=== PATIENT | male | born 1950 | race Caucasian/White ===

== ENCOUNTER 2016-03-16 15:44 | Emergency (ER) | payer OTHER ==
[~2016-03-16] VITALS: Ht 177.8 cm; Wt 118.1 kg
[~2016-03-16 15:44] MED LIST: ACDPT; ACET-2469 PO; ALLP100T PO; B12 PO; BENA40TA59; BNZ20T PO; BUPR300T PO; CHOL500044 PO; CIPR500T4 PO; CIPR500T78 PO; CLON0.5T3 PO; CYCL10TA9; CYCL10TA9 PO; DESV50TA PO; DICL75TA2 PO; DOXA4TAB2 PO; ENXP80I.8 SC; ESCI20TA2; GARL10002 PO; GARL2000 PO; GARL400T13; HCT25T; HYDR-3876 PO; HYDR-707 PO; MAGN250T13 PO; METO-333 PO; METR500T PO; METR500T21 PO; MMT17NA NSEACH; MULT-974 PO; NITR-65 PO; NITR-68 PO; OMEP20CA12 PO; ONDA8TAB13 PO; OXYB5TAB9 PO; OXYC-191 PO; OXYC-465 PO; OXYC1TAB95 PO; PARO10OR3 PO; PHEN-639 PO; RANI75TA30 PO; RNT150T; TAMS0.4C2 PO; TAMS0.4C98 PO; TIZA2TAB3 PO; TRAZ150T42; TRAZ150T42 PO; TRAZ150T72 PO; VIT D3 PO; WRF5T PO; [UNRECOGNIZED DRUG - CODE] TP
--- OUTSIDE RECORDS SUMMARY | 2016-03-16 15:51 | XMS REPORT | Continuity of Care Document ---
Author Author [facility] Organization [facility] Address Unknown Phone Unavailable Care Team Providers Care Concrete Sculptor Name Role Phone Crystal Burton PCP [phone] Source Comments Some departments are not documenting in the electronic medical record. If you do not see the information that you expected, contact Release of Information in the Health Information Management department at [phone] for further assistance in locating additional records.[facility] Active Allergies and Adverse Reactions Not on File Current Medications Prescription Sig. Disp. Refills Start End Date Status Date diclofenac sodium DR Take 1 Tab by mouth twice 60 Tab 1 04/04/19 Active (VOLTAREN) 75 mg tablet daily. Indications: 16 OSTEOARTHRITIS Active Problems Not on file Social History Tobacco Use Types Packs/Day Years Used Date Never Assessed Plan of Care Health Maintenance Due Date Last Done Comments Physical (Comprehensive) 1957 Exam Pertussis Vaccine 1960 Tetanus Vaccine 1966 Colorectal Cancer 12/22/1999 Screening Shingles Vaccine 2009 Prevnar/Pneumovax (#1) 2014 Influenza Vaccine 11/01/2015 Results from Last 3 Months Not on file
--- NOTE | 2016-03-16 17:00 | Diagnostic Imaging Report ---
INDICATION: Right hip pain. No trauma. FINDINGS: Two views with AP and frog-leg view. The hip is internally rotated on AP view. Patient was unable to cooperate to roll hip laterally. No fractures or dislocations are demonstrated. Articulating surfaces are smooth. Joint space is well preserved. IMPRESSION: Negative right hip. Dictated by: Dictated on workstation # [id number]
--- NOTE | 2016-03-16 17:01 | Diagnostic Imaging Report ---
INDICATION: Right hip pain. EXAMINATION: Pelvis. FINDINGS: AP pelvis shows bony ring intact. There is sclerotic change along the SI joints, bilaterally. Pubic symphysis is in good alignment. The hips are in normal articulation with mild degenerative change. No fracture is demonstrated. There are surgical clips from previous ventral hernia repair. IMPRESSION: No acute change is noted of the pelvis. Degenerative changes of the SI joints, bilaterally. Dictated by: Dictated on workstation # [id number]
--- NOTE | 2016-03-16 17:47 | ED Hip Pain/Injury ---
General Chief Complaint: Hip/Pelvic Problems Stated Complaint: R HIP PAIN Nursing Triage Note: PT C/O R HIP PAIN. HE DENIES ANY INJURY. HE DOES REPORT CHRONIC BACK PAIN. Source: patient Exam Limitations: no limitations History of Present Illness Time seen by provider: 17:42 Initial Comments The patient is a 65-year-old white male who presents with complaints of right hip and pelvic pain. He has been doing workouts with light weights. He had recently increased the weight and noted after returning home that he had pain in his right hip area. He has had chronic low back pain but states that that has typically been more central. He did note that this has some element of pain in the buttocks and the upper posterior thigh. There is been no loss of ability to ambulate. It also done some rotational exercises with the thorax and the symptoms increased after this. Timing/Duration: week Severity: mild, moderate Location: hip (R) Method of Injury: unknown Associated Symptoms: denies symptoms Allergies and Home Medications Allergies Coded Allergies: Penicillins (Unverified Allergy, Mild, 07/04/09) ampicillin (Unverified Allergy, Mild, RASH, 04/22/09) sulfacetamide (Verified Allergy, Mild, "MADE ME FEEL BAD", 03/19/15) egg (Unverified Allergy, Unknown, 07/19/15) FROM UNCODED ALLERGIES Home Medications Allopurinol 100 Mg Tab 100 MG PO DAILY (Reported) Cholecalciferol (Vitamin D3) 5,000 Unit Tablet 5,000 UNIT PO DAILY (Reported) Clonazepam 0.5 Mg Tablet 0.5 MG PO HS (Reported) NEEDED FOR ANXIETY Diclofenac Sodium 75 Mg Tablet.dr 75 MG PO BID (Reported) Garlic 2,000 Mg Capsule 2,000 MG PO DAILY (Reported) Mometasone Furoate 17 Gm [place] #1 1 SPRAY NSEACH HS (Reported) Multivitamin 1 Each Tablet 2 EACH PO BID (Reported) Omeprazole 20 Mg Capsule.dr 20 MG PO BID (Reported) Oxycodone Hcl/Acetaminophen 1 Each Tablet 1 EACH PO Q6HR PRN PRN PRN PAIN ( Reported) Tamsulosin HCl 0.4 Mg Cap.er.24h 0.4 MG PO DAILY (Reported) Trazodone HCl 150 Mg Tablet 150 MG PO HS (Reported) Trazodone Hcl 150 Mg Tablet 150 MG PO HS (Reported) Constitutional: see HPI EENTM: no symptoms reported Respiratory: no symptoms reported Cardiovascular: no symptoms reported Gastrointestinal: no symptoms reported Genitourinary: no symptoms reported Musculoskeletal: see HPI back pain Skin: no symptoms reported Psychiatric/Neurological: No Symptoms Reported Past Sqcmbxc-Yacazy-Ymtmqe Hx Patient Social History Alcohol Use: Denies Use Recreational Drug Use: No Smoking Status: Never a Smoker Recent Foreign Travel: No Contact w/Someone Who Travel: No Recent Infectious Disease Expo: No Physical Abuse Screen: No Sexual Abuse: No Immunizations Up To Date Tetanus Booster (TDap): Less than 5yrs Date of Pneumonia Vaccine: Mar 19, 2013 Surgeries HX Surgeries: Yes (hernia repair, SINUS, FOOT, BARIATRIC, KNEE SCOPE, cysto) Respiratory Hx Respiratory Disorders: Yes (uses cpap) Respiratory Disorders: Sleep Apnea Cardiovascular Hx Cardiac Disorders: Yes (2011-FROM FALL, TOOK COUMADIN FOR 6MONTHS) Neurological Hx Neurological Disorders: No Reproductive System Hx Reproductive Disorders: No Sexually Transmitted Disease: No HIV/AIDS: No Genitourinary Hx Genitourinary Disorders: Yes (LITHOTRIPSY IN APRIL ) Genitourinary Disorders: Kidney Stones Gastrointestinal Hx Gastrointestinal Disorders: Yes (HAS HAD GASTRIC SLEEVE) Gastrointestinal Disorders: Gastroesophageal Reflux, Chronic Constipation, Diverticulosis Musculoskeletal Hx Musculoskeletal Disorders: Yes (ARTHRITIS IN KNEES AND BACK) Musculoskeletal Disorders: Arthritis, Chronic Back Pain Endocrine Hx Endocrine Disorders: No HEENT HX ENT Disorders: Yes (GLASSES) Loss of Vision: Bilateral Hearing Impairment: Denies Cancer Hx Cancer: No Psychosocial Hx Psychiatric Problems: Yes Behavioral Health Disorders: Anxiety, Depression Integumentary HX Skin/Integumentary Disorder: Yes (RED PATCHES ON FACE) Blood Transfusions Hx Blood Disorders: No Adverse Reaction to a Blood Tr: No Family Medical History Significant Family History: No Pertinent Family Hx Family Medial History: Arthritis 19 MOTHER Cardiovascular disease 19 MOTHER Colon cancer 19 FATHER 19 MOTHER G8 SISTER Dementia 19 MOTHER Hypertension 19 MOTHER G8 BROTHER Respiratory disorder 19 FATHER (lung ca) Thyroid disease 19 MOTHER Physical Exam Vital Signs Vital Sign - Last 12Hours 03/16/16 16:23 Temp 97.9 Pulse 68 Resp 18 B/P 130/85 Pulse Ox 98 O2 Delivery Room Air Capillary Refill : Less Than 3 Seconds General Appearance: No Apparent Distress WD/WN HEENT: Normal ENT Inspection Neck: Normal Inspection Cardiovascular: Regular Rate, Rhythm No Edema No Gallop No JVD No Murmur Normal Peripheral Pulses Respiratory: Chest Non Tender Lungs Clear Normal Breath Sounds No Accessory Muscle Use No Respiratory Distress Accessory Muscle Use Gastrointestinal: Normal Bowel Sounds No Organomegaly No Pulsatile Mass Non Tender Soft Back: CVA Tenderness (R) Extremity: Normal Capillary Refill Normal Inspection Normal Range of Motion Non Tender No Calf Tenderness No Pedal Edema Neurologic/Psychiatric: Alert Oriented x3 No Motor/Sensory Deficits Normal Mood/Affect emerging technologies director II-XII Norm as Tested Abnormal Cerebellar Tests Skin: Normal Color Warm/Dry Cool Cyanosis Lymphatic: No Adenopathy Comments There is pain to deep palpation along the sciatic notch on the right. This produced a bit of radiation to the upper posterior thigh. Progress/Results/Core Measures Results/Orders My Orders Orders-FAUSTINO BRYAN MD Pelvis (03/16/16 16:19) Hip, Right, 2 Views (03/16/16 16:19) Vital Signs/I&O Vital Sign - Last 12Hours 03/16/16 16:23 Temp 97.9 Pulse 68 Resp 18 B/P 130/85 Pulse Ox 98 O2 Delivery Room Air Blood Pressure Mean: 100 Departure Impression Impression: Primary Impression: PAIN Additional Impression: low back pain Disposition: 01 HOME, SELF-CARE Condition: Stable/Unchanged Departure-Patient Inst. Decision time for Depature: 17:49 Referrals: CHRIS STEVENSON MD (PCP) Primary Care Physician Patient Instructions: Low Back Pain in Adults Add. Discharge Instructions: All discharge instructions reviewed with patient and/or family. Voiced understanding Use heat to the area. Continue Flexeril Add naproxen It may take several days to see results, avoid stressful exercise during this period of time. Scripts Naproxen Sodium (Anaprox Ds)550 Mg [id number] Mg PO BID #60 TAB Prov:FAUSTINO BRYAN MD 03/16/16 Work/School Note: Local Medical Staff Listing FAUSTINO BRYAN MD Mar 16, 2016 17:47
[2016-03-16] MEDS ORDERED: NAPR550T PO (17:51)
[2016-03-16 18:02] VITALS: BP 130/85
== END 2016-03-16 18:02 | disposition home or self-care (01) ==
LOC: EDUNIT# 15:44 → ER 15:46
DX: M54.5 Low back pain (principal); M25.551 Pain in right hip
CPT/HCPCS: 72170; 73502

== ENCOUNTER → 2016-03-28 | Outpatient (CLI) | payer MEDICARE ==
[~2016-03-28] MED LIST changes: +NAPR550T PO
--- OUTSIDE RECORDS SUMMARY | 2016-03-28 09:59 | XMS REPORT | Continuity of Care Document ---
Author Author [facility] Organization [facility] Address Unknown Phone Unavailable Care Team Providers Care Patient Safety Manager Name Role Phone Crystal Burton PCP [phone] Source Comments Some departments are not documenting in the electronic medical record. If you do not see the information that you expected, contact Release of Information in the Health Information Management department at [phone] for further assistance in locating additional records.[facility] Active Allergies and Adverse Reactions Not on [...]
== END ==
LOC: RAD 09:55
PROVIDERS: ATTEND Nurse Practitioner Family
DX: M54.41 Lumbago with sciatica, right side (principal)

== ENCOUNTER → 2016-03-31 | Outpatient (CLI) | payer MEDICARE, OTHER ==
--- OUTSIDE RECORDS SUMMARY | 2016-03-31 08:07 | XMS REPORT | Continuity of Care Document ---
Author Author [facility] Organization [facility] Address Unknown Phone Unavailable Care Team Providers Care Associate Manager Name Role Phone Crystal Burton PCP [phone] Source Comments Some departments are not documenting in the electronic medical record. If you do not see the information that you expected, contact Release of Information in the Health Information Management department at [phone] for further assistance in locating additional records.[facility] Active Allergies and Adverse Reactions Not [...]
--- NOTE | 2016-03-31 10:53 | Diagnostic Imaging Report ---
PROCEDURE: MRI lumbar spine. TECHNIQUE: Multiplanar, multisequence MRI of the lumbar spine was performed without contrast. INDICATION: Back pain. FINDINGS: The alignment of the posterior spinal line is satisfactory. There is an old compression fracture with 5 percent vertebral body height loss involving L1 vertebral body. There is no acute or subacute compression fracture seen. There are multilevel bone marrow signal abnormalities within vertebral bodies suggestive of hemangiomas most notable at T11 vertebral body with approximately 2.7 cm maximum dimension. No suspicious or aggressive-appearing lesion seen however. There are mild reactive Modic 1-type changes seen along the endplates around L3-L4 disc suggestive of degenerative changes. The cauda equina and conus medullaris appear grossly unremarkable. There is mild T2 hyperintensity within the right paraspinal muscles around the thoracolumbar junction region. This might relate to injury or nonspecific muscle edema/myositis. The discs demonstrate desiccation at all levels. No significant disc height loss. T11-T12: Minimal disc herniation, no spinal canal or foraminal stenosis. T12-L1: Minimal disc herniation. There is no spinal canal or foraminal stenosis. L1-L2: There is a minimal disc bulge and mild facet and ligamentous hypertrophy. No central canal, lateral recess, or foraminal stenosis. L2-L3: There is a mild diffuse disc bulge and mild/ moderate facet arthropathy. This is associated with mild right lateral recess stenosis. The left lateral recess is patent. The central canal is patent. The neural foramina are patent. L3-L4: There is a mild diffuse disc bulge and moderate facet arthropathy. No central canal stenosis. There is mild/ moderate narrowing of the right lateral recess. The left lateral recess is patent. At this level there is in an epidural lesion with iso T1 and T2 hyperintense lesion with well-defined margins in the epidural space on the right side posterior lateral and extending into the right neural foramen. It is abutting the herniated disc superior aspect and despite the difference in the signal intensity, is most likely an extruded cranially migrated disc. It measures 1.6 cm in width and 1.3 cm craniocaudally and is 0.6 cm anterior posteriorly. Although it does not compress the right lateral recess, its extension into the foramen along with the facet arthropathy results in moderate/ severe right foraminal stenosis. The left foramen demonstrates mild stenosis. L4-L5: There is a mild disc bulge and bilateral moderate/ severe facet arthropathy with minimal fluid within the facet joints on both sides. There is no central canal stenosis. There is mild/ moderate right lateral recess stenosis. The left lateral recess is patent. There is minimal synovial cyst projecting anteriorly from the superior aspect of the left facet joint with a cyst maximum measurement 3 mm. It is abutting the exiting nerve root in the left foramen without significant compression or foraminal narrowing otherwise. The right foramen demonstrates mild stenosis. L5-S1: There is a diffuse disc bulge and bilateral mild/moderate facet arthropathy. No central canal stenosis. No significant stenosis of the lateral recess. The foramina demonstrate mild/ moderate narrowing worse on the left side. IMPRESSION: 1. There is multilevel lateral recess and foraminal stenosis as described, worst along the right L3-L4 neural foramen. 2. There is mild T2 hyperintense signal in the right paraspinal muscles around the thoracolumbar junction could relate to mild muscle sprain or nonspecific mild muscle edema or myositis. Correlate clinically. Dictated by: Dictated on workstation # [id number]
== END ==
LOC: RAD 08:03
PROVIDERS: ATTEND Nurse Practitioner Family
DX: M54.41 Lumbago with sciatica, right side (principal)
CPT/HCPCS: 72148

== ENCOUNTER 2016-06-19 18:36 | Emergency (ER) | payer OTHER, MEDICARE ==
[~2016-06-19] VITALS: Ht 175.3 cm; Wt 118.1 kg
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
[2016-06-19 19:30] VITALS: BP 169/102
== END 2016-06-19 19:30 | disposition home or self-care (01) ==
LOC: EDUNIT# 18:36 → ER 18:38
DX: S13.4XXA Sprain of ligaments of cervical spine, initial encounter (principal); V43.52XA Car driver injured in collision with other type car in traffic accident, initial encounter; Y92.414 Local residential or business street as the place of occurrence of the external cause; Y99.8 Other external cause status
CPT/HCPCS: 70450; 72125; 99282

== ENCOUNTER 2016-10-10 02:08 | Emergency (ER) | payer MEDICARE, OTHER ==
[~2016-10-10] VITALS: Ht 177.8 cm; Wt 133.8 kg
--- OUTSIDE RECORDS SUMMARY | 2016-10-10 02:21 | XMS REPORT | Clinical Summary ---
Author Author [facility] Organization [facility] Address Unknown Phone Unavailable Care Team Providers Care Cooker Operator Name Role Phone PCP Unavailable Source Comments Some departments are not documenting in the electronic medical record. If you do not see the information that you expected, contact Release of Information in the Health Information Management department at [phone] for further assistance in locating additional records.[facility] Allergies Not on File Current Medications Prescription Sig. Disp. Refills Start End Date Status Date diclofenac sodium DR Take 1 Tab by mouth twice 60 Tab 1 04/04/19 Active (VOLTAREN) 75 mg daily. Indications: 16 tabletIndications: OSTEOARTHRITIS OSTEOARTHRITIS Active Problems Not on file Social History Tobacco Use Types Packs/Day Years Used Date Never Assessed Sex Assigned at Date Recorded Not on file Last Filed Vital Signs Not on file Plan of Treatment Health Maintenance Due Date Last Done Comments HEPATITIS C SCREENING 1950 PHYSICAL (COMPREHENSIVE) 1956 EXAM PERTUSSIS VACCINE 1960 TETANUS VACCINE 1966 COLORECTAL CANCER 12/22/1999 SCREENING SHINGLES VACCINE 2009 PREVNAR/PNEUMOVAX (#1) 2014 INFLUENZA VACCINE 10/31/2016 Results Not on filefrom Last 3 Months
--- NOTE | 2016-10-10 02:55 | ED Upper Extremity ---
General Chief Complaint: Trauma-Non Activation Stated Complaint: FALL Nursing Triage Note: SEE TRAUMA ASSESSMENT Nursing Sepsis Screen: No Definite Risk Source: patient, EMS History of Present Illness Time seen by provider: 02:09 Initial Comments PT ARRIVES VIA EMS FROM HOME PT STATES HE GOT UP TO GO TO BATHROOM AND WAS SITTING ON TOILET AND FELL ASLEEP , AND WHEN HE WOKE UP BOTH OF HIS LEGS HAD FALLEN ASLEEP SO HE TRIED TO STAND UP TO GET THEM TO WAKE UP AND HE LOST HIS BALANCE AND FELL, WITH RIGHT ARM OUTSTRETCHED, AND WAS NOT ABLE TO GET UP PT STATES HIS LEGS WILL DO THIS IF HE SITS ON TOILET TOO LONG, AND IS NOT ANY DIFFERENT THAN PREVIOUS OCCASIONS, OCCURRED AT 0120 HAD IMMEDIATE PAIN IN RIGHT SHOULDER PT WAS LAYING PRONE ON THE BATHROOM FLOOR, AND NOTED TO HAVE DEFORMITY TO RIGHT SHOULDER. WHEN EMS WAS ASSISTING HIM TO STAND, HIS SHOULDER POPPED BACK IN PLACE AND HAD IMMEDIATE RELIEF OF PAIN, BUT STATES SHOULDER IS STILL A LITTLE SORE, SO CAME TO ER PT DENIES HITTING HIS HEAD OR HAVING LOSS OF CONSCIOUSNESS DENIES ANY OTHER INJURIES PT HAS CHRONIC BACK PAIN AND NO INCREASE IN CHRONIC PAIN NO PARESTHESIAS OR MOTOR DEFICITS NOW--LEGS ARE NO LONGER "ASLEEP" Location [facility] Allergies and Home Medications Allergies Coded Allergies: Penicillins (Unverified Allergy, Mild, 07/04/09) ampicillin (Unverified Allergy, Mild, RASH, 04/22/09) sulfacetamide (Verified Allergy, Mild, "MADE ME FEEL BAD", 03/19/15) egg (Unverified Allergy, Unknown, 07/19/15) FROM UNCODED ALLERGIES Home Medications Allopurinol 100 Mg Tab, 100 MG PO DAILY, (Reported) Cholecalciferol (Vitamin D3) 5,000 Unit Tablet, 5,000 UNIT PO DAILY, (Reported) Clonazepam 0.5 Mg Tablet, 0.5 MG PO HS, (Reported) NEEDED FOR ANXIETY Diclofenac Sodium 75 Mg Tablet.dr, 75 MG PO BID, (Reported) Garlic 2,000 Mg Capsule, 2,000 MG PO DAILY, (Reported) Mometasone Furoate 17 Gm [place], 1 SPRAY NSEACH HS, #1 (Reported) Multivitamin 1 Each Tablet, 2 EACH PO BID, (Reported) Naproxen Sodium 550 Mg Tablet, 550 MG PO BID, #60 Prescribed by: FAUSTINO BRYAN on 03/16/16 1751 Omeprazole 20 Mg Capsule.dr, 20 MG PO BID, (Reported) Oxycodone Hcl/Acetaminophen 1 Each Tablet, 1 EACH PO Q6HR PRN PRN for PAIN, ( Reported) Tamsulosin HCl 0.4 Mg Cap.er.24h, 0.4 MG PO DAILY, (Reported) Trazodone HCl 150 Mg Tablet, 150 MG PO HS, (Reported) Trazodone Hcl 150 Mg Tablet, 150 MG PO HS, (Reported) Constitutional: no symptoms reported EENTM: no symptoms reported Respiratory: no symptoms reported Cardiovascular: no symptoms reported Musculoskeletal: see HPI Skin: no symptoms reported Psychiatric/Neurological: No Symptoms Reported, See HPI Past Diqyqth-Bhiqvc-Mdiism Hx Patient Social History Alcohol Use: Occasionally Uses Recreational Drug Use: No Smoking Status: Never a Smoker Recent Foreign Travel: No Contact w/Someone Who Travel: No Recent Infectious Disease Expo: No Recent Hopitalizations: No Immunizations Up To Date Tetanus Booster (TDap): Less than 5yrs Date of Pneumonia Vaccine: Mar 19, 2013 Seasonal Allergies Seasonal Allergies: Yes Surgeries HX Surgeries: Yes (UMBILICAL HERNIA REPAIR;HIATAL HERNIA REPAIR;SINUS; HAMMERTOE SURGERY; BARIATRIC SURGERY; EGD/COLONOSCOPY; LEFT KNEE SCOPE; RIGHT TOTAL KNEE REPLACEMENT; CYSTO; LITHOTRIPSY; UVULA RESECTION) Surgeries: Abdominal, Adenoidectomy, Bladder Surgery, Gallbladder, Orthopedic, Renal, Tonsillectomy Respiratory Hx Respiratory Disorders: Yes (USES CPAP) Respiratory Disorders: Sleep Apnea Cardiovascular Hx Cardiac Disorders: Yes (2011-FROM FALL, TOOK COUMADIN FOR 6MONTHS) Cardiac Disorders: Deep Vein Thrombosis, High Cholesterol, Hypertension Neurological Hx Neurological Disorders: Yes (TREMORS) Reproductive System Hx Reproductive Disorders: No Sexually Transmitted Disease: No HIV/AIDS: No Genitourinary Hx Genitourinary Disorders: Yes (LITHOTRIPSY ) Genitourinary Disorders: Benign Prostatic Hyperpl, Bladder Infection, Kidney Stones Gastrointestinal Hx Gastrointestinal Disorders: Yes (HAS HAD GASTRIC SLEEVE) Gastrointestinal Disorders: Gastroesophageal Reflux, Chronic Constipation, Diverticulosis, Polyps, Hiatal Hernia, Irritable Bowel Musculoskeletal Hx Musculoskeletal Disorders: Yes (ARTHRITIS IN KNEES AND BACK) Musculoskeletal Disorders: Arthritis, Chronic Back Pain, Gout Endocrine Hx Endocrine Disorders: Yes (MORBID OBESITY) HEENT HX ENT Disorders: Yes (GLASSES) Loss of Vision: Bilateral Hearing Impairment: Denies Cancer Hx Cancer: No Psychosocial Hx Psychiatric Problems: Yes Behavioral Health Disorders: Sleep Difficulties, Anxiety, Depression Integumentary HX Skin/Integumentary Disorder: Yes (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) Blood Transfusions Hx Blood Disorders: No Adverse Reaction to a Blood Tr: No Family Medical History Significant Family History: No Pertinent Family Hx Family Medial History: Arthritis 19 MOTHER Cardiovascular disease 19 MOTHER Colon cancer 19 FATHER 19 MOTHER G8 SISTER Dementia 19 MOTHER Hypertension 19 MOTHER G8 BROTHER Respiratory disorder 19 FATHER (lung ca) Thyroid disease 19 MOTHER Physical Exam Vital Signs Vital Sign - Last 12Hours 10/10/16 02:08 Temp 97.8 Pulse 49 Resp 18 B/P (MAP) 121/74 Pulse Ox 96 O2 Delivery Room Air Capillary Refill : Less Than 3 Seconds General Appearance: no apparent distress, obese Neck: normal inspection Cardiovascular: regular rate, rhythm Respiratory: chest non-tender, normal breath sounds Gastrointestinal: non tender, soft Back: no CVA tenderness, no vertebral tenderness Shoulder: No asymmetry, No bone tenderness, No deformity, No ecchymosis, limited ROM, soft tissue tenderness, No swelling Elbow/Forearm: normal inspection Wrist: Yes normal inspection Hand: normal inspection Neurologic/Tendon: normal sensation, normal motor functions, normal tendon functions Neurologic/Psychiatric: life educator II-XII nml as tested, no motor/sensory deficits, alert, normal mood/affect, oriented x 3 Skin: normal color, warm/dry Splinting and Joint Reduction : Immobilizers: XL Shoulder Progress/Results/Core Measures Results/Orders My Orders Orders - MEI ALFONSO DO Shoulder, Right, 3 Views (10/10/16 02:17) Shoulder Immoblizer (10/10/16 02:47) Vital Signs/I&O Vital Sign - Last 12Hours 10/10/16 02:08 Temp 97.8 Pulse 49 Resp 18 B/P (MAP) 121/74 Pulse Ox 96 O2 Delivery Room Air Blood Pressure Mean: 90 Diagnostic Imaging Comments XRAYS RIGHT SHOULDER--NO FX OR DISLOCATION, PENDING RADIOLOGIST REVIEW Departure Impression Impression: Primary Impression: REPORTED SHOULDER DISLOCATION WITH SPONTANEOUS REDUCTION Disposition: 01 HOME, SELF-CARE Condition: Stable Departure-Patient Inst. Referrals: CHRIS STEVENSON MD (PCP) Primary Care Physician DMITRI GALLO MD Patient Instructions: How to Use a Shoulder Sling, Shoulder Dislocation (DC) Add. Discharge Instructions: WEAR IMMOBILIZER AT ALL TIMES ICE TO AREA AT 20 MINUTE INTERVALS TAKE YOUR HOME PAIN MEDICATIONS PRESCRIBED FOLLOW UP WITH DR. GALLO OR ORTHOPEDIC SURGEON OF CHOICE/ PR IN 3-4 DAYS FOR FURTHER CARE All discharge instructions reviewed with patient and/or family. Voiced understanding. MEI ALFONSO DO Oct 10, 2016 02:55
[2016-10-10 03:11] VITALS: BP 126/72
--- NOTE | 2016-10-10 06:37 | Diagnostic Imaging Report ---
INDICATION: Right shoulder pain Three views of the right shoulder show no fracture, dislocation or other acute abnormalities. IMPRESSION: Negative right shoulder Dictated by: Dictated on workstation # [id number]
== END 2016-10-10 03:11 | disposition home or self-care (01) ==
LOC: EDUNIT# 02:15 → ER 02:17
DX: S43.004A Unspecified dislocation of right shoulder joint, initial encounter (principal); G47.30 Sleep apnea, unspecified; I10 Essential (primary) hypertension; N40.0 Benign prostatic hyperplasia without lower urinary tract symptoms; K21.9 Gastro-esophageal reflux disease without esophagitis; M19.90 Unspecified osteoarthritis, unspecified site; M10.9 Gout, unspecified; K59.09 Other constipation; M54.9 Dorsalgia, unspecified; G89.29 Other chronic pain; E66.01 Morbid (severe) obesity due to excess calories; F41.9 Anxiety disorder, unspecified; E78.00 Pure hypercholesterolemia, unspecified; F32.9 Major depressive disorder, single episode, unspecified; Z68.41 Body mass index [BMI] 40.0-44.9, adult; Z82.49 Family history of ischemic heart disease and other diseases of the circulatory system; Z80.1 Family history of malignant neoplasm of trachea, bronchus and lung; Z87.442 Personal history of urinary calculi; Z86.718 Personal history of other venous thrombosis and embolism; Z96.651 Presence of right artificial knee joint; Z98.84 Bariatric surgery status; W18.30XA Fall on same level, unspecified, initial encounter; Y92.002 Bathroom of unspecified non-institutional (private) residence as the place of occurrence of the external cause
CPT/HCPCS: 73030; 99282

== ENCOUNTER 2016-10-28 10:53 | Emergency (ER) | payer MEDICARE, OTHER ==
[~2016-10-28] VITALS: Ht 177.8 cm; Wt 131.7 kg
[~2016-10-28 10:53] MED LIST changes: +NAPR-1070 PO; -NAPR550T PO
--- OUTSIDE RECORDS SUMMARY | 2016-10-28 11:09 | XMS REPORT | Clinical Summary ---
Author Author [facility] Organization [facility] Address Unknown Phone Unavailable Care Team Providers Care Fiber Design Engineer Name Role Phone PCP Unavailable Source Comments Some departments are not documenting in the electronic medical record. If you do not see the information that you expected, contact Release of Information in the Health Information Management department at [phone] for further assistance in locating additional records.[facility] Allergies Not on File Current Medications Prescription [...]
--- OUTSIDE RECORDS SUMMARY | 2016-10-28 11:14 | XMS REPORT ---
Author Author CHRIS STEVENSON [facility] Address [address] [place] [address] Care Team Providers Care Poultry Farm Laborer Name Role Phone GRAHAMELLIOTT HANNAHANY Unavailable PROBLEMS Type Condition ICD9-CM Code [id number] Code Onset Dates Condition Status SNOMED Code Problem Low back pain M54.5 Active 861438649 Problem History of diverticulitis Z87.19 Active 404773250637696 Problem Cervicalgia M54.2 Active 3307212642014 Problem Erectile dysfunction due to diseases classified elsewhere N52.1 Active 368852004 Problem Primary insomnia F51.01 Active 147330162 Problem Acute right-sided low back pain with right-sided sciatica M54.41 Active 968066275 Problem 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 Active 29501258 Problem Esophageal stricture K22.2 Active 83478437 Problem Chronic prescription opiate use Z79.899 Active 574096909 Problem Nephrolithiasis N20.0 Active 61676731 Problem Benign prostatic hyperplasia, presence of lower urinary tract symptoms unspecified, unspecified morphology N40.0 Active 802239082 Problem Moderate episode of recurrent major depressive disorder F33.1 Active 325483530 Problem Nocturnal hypoxia G47.34 Active 540873168 Problem Obstructive sleep apnea syndrome G47.33 Active 00808709 Problem Psoriasis L40.9 Active 7281081 Problem Allergic rhinitis, unspecified allergic rhinitis type J30.9 Active 38525943 Problem Anxiety F41.9 Active 21074208 Problem Hyperlipidemia, unspecified E78.5 Active 51087514 Problem Urge incontinence N39.41 Active 735010537 Problem Essential hypertension I10 Active 56341296 Problem Chronic gout, unspecified cause, unspecified site M1A.9XX0 Active 72740764 Problem History of weight loss surgery Z98.84 Active 952576220 ALLERGIES Unknown Allergies SOCIAL HISTORY No smoking Hx information available PLAN OF CARE VITAL SIGNS MEDICATIONS Medication Instructions Dosage Frequency Start Date End Date Duration Status Endocet 10-325 MG Orally 4 times a day 1 tablet as needed 6h 14 Dec, 2015 28 days Active RESULTS No Results PROCEDURES No Known procedures IMMUNIZATIONS No Known Immunizations
--- OUTSIDE RECORDS SUMMARY | 2016-10-28 11:16 | XMS REPORT ---
Author Author CHRIS STEVENSON [facility] Address [address] [place] [address] Care Team Providers Care Graphic Manager Name Role Phone CHRIS STEVENSON Unavailable PROBLEMS Type Condition ICD9-CM Code [id number] Code Onset Dates Condition Status SNOMED Code Problem Obstructive sleep apnea syndrome G47.33 Active 90873948 Problem History of diverticulitis Z87.19 Active [id number] Problem Allergic rhinitis, unspecified allergic rhinitis type J30.9 Active 64917921 Problem Erectile dysfunction due to diseases classified elsewhere N52.1 Active 510936894 Problem Essential hypertension I10 Active 77158161 Problem Acute right-sided low back pain with right-sided sciatica M54.41 Active 278456106 Problem Nephrolithiasis N20.0 Active 94760783 Problem Nocturnal hypoxia G47.34 Active 195957438 Problem Chronic prescription opiate use Z79.899 Active 714047783 Problem 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 Active 48389681 Problem Benign prostatic hyperplasia, presence of lower urinary tract symptoms unspecified, unspecified morphology N40.0 Active 867725811 Problem Moderate episode of recurrent major depressive disorder F33.1 Active 931728326 Problem Urge incontinence N39.41 Active 184701828 Problem Low back pain M54.5 Active 810101527 Problem Psoriasis L40.9 Active 0881424 Problem Anxiety F41.9 Active 68372797 Problem Hyperlipidemia, unspecified E78.5 Active 81908035 Problem Esophageal stricture K22.2 Active 38342826 Problem Cervicalgia M54.2 Active 9750025061070 Problem Chronic gout, unspecified cause, unspecified site M1A.9XX0 Active 06878753 Problem Primary insomnia F51.01 Active 195470136 Problem History of weight loss surgery Z98.84 Active 692353692 ALLERGIES Unknown Allergies SOCIAL HISTORY No smoking Hx information available PLAN OF CARE VITAL SIGNS MEDICATIONS Medication Instructions Dosage Frequency Start Date End Date Duration Status Flomax 0.4 MG Orally Once a day 1 capsule 30 minutes after the same meal each day 24h Active RESULTS No Results PROCEDURES No Known procedures IMMUNIZATIONS No Known Immunizations
--- NOTE | 2016-10-28 11:29 | ED Upper Extremity ---
General Chief Complaint: Upper Extremity Stated Complaint: RIGHT ARM BOTHERING AND FEELS SWOLLEN Nursing Triage Note: pt reports dislocated r shoulder several weeks ago. pt states 2 weeks ago he over stretched it and again yesterday. pt reports increased pain and limited movement in r shoulder. Nursing Sepsis Screen: No Definite Risk Source: patient Exam Limitations: no limitations History of Present Illness Time seen by provider: 11:29 Initial Comments 65 yo male patient presents to the ED with c/o rt shoulder pain beginning 2 wks ago after he dislocated the shoulder. patient was seen in the ED at that time with negative xrays. states last week and yesterday he was getting onto his mower and felt a sudden pain in the rt shoulder. today noticed the shoulder is swollen. PCP is dr. oliver, but states he has to see the [place] for this problem. Has an appointment at [facility] in October. Onset: other (injured shoulder 2 wks ago. pain worse yesterday.) Pain/Injury Location: right shoulder Modifying Factors: Worse With Movement Allergies and Home Medications Allergies Coded Allergies: Penicillins (Unverified Allergy, Mild, 07/04/09) ampicillin (Unverified Allergy, Mild, RASH, 04/22/09) sulfacetamide (Verified Allergy, Mild, "MADE ME FEEL BAD", 03/19/15) egg (Unverified Allergy, Unknown, 07/19/15) FROM UNCODED ALLERGIES Home Medications Allopurinol 100 Mg Tab, 100 MG PO DAILY, (Reported) Cholecalciferol (Vitamin D3) 5,000 Unit Tablet, 5,000 UNIT PO DAILY, (Reported) Clonazepam 0.5 Mg Tablet, 0.5 MG PO HS, (Reported) NEEDED FOR ANXIETY Diclofenac Sodium 75 Mg Tablet.dr, 75 MG PO BID, (Reported) Garlic 2,000 Mg Capsule, 2,000 MG PO DAILY, (Reported) Mometasone Furoate 17 Gm [place], 1 SPRAY NSEACH HS, #1 (Reported) Multivitamin 1 Each Tablet, 2 EACH PO BID, (Reported) Naproxen Sodium 550 Mg Tablet, 550 MG PO BID, #60 Prescribed by: FAUSTINO BRYAN on 03/16/16 4201 Omeprazole 20 Mg Capsule.dr, 20 MG PO BID, (Reported) Oxycodone Hcl/Acetaminophen 1 Each Tablet, 1 EACH PO Q6HR PRN PRN for PAIN, ( Reported) Tamsulosin HCl 0.4 Mg Cap.er.24h, 0.4 MG PO DAILY, (Reported) Trazodone HCl 150 Mg Tablet, 150 MG PO HS, (Reported) Trazodone Hcl 150 Mg Tablet, 150 MG PO HS, (Reported) Constitutional: no symptoms reported Respiratory: no symptoms reported Cardiovascular: no symptoms reported Musculoskeletal: see HPI, No back pain, joint pain (rt shoulder), joint swelling (rt shoulder), No neck pain Skin: No change in color, No lumps Psychiatric/Neurological: Denies Numbness, Denies Paresthesia, Denies Tingling , Denies Weakness All Other Systems Reviewed Negative Unless Noted: Yes (Negative excepted noted.) Past Cornusi-Xsutbq-Zkhcfo Hx Patient Social History Alcohol Use: Denies Use Recreational Drug Use: No Smoking Status: Never a Smoker Recent Foreign Travel: No Contact w/Someone Who Travel: No Recent Infectious Disease Expo: No Recent Hopitalizations: No Physical Abuse: No Sexual Abuse: No Mistreated: No Immunizations Up To Date Tetanus Booster (TDap): Less than 5yrs Date of Pneumonia Vaccine: Mar 19, 2013 Seasonal Allergies Seasonal Allergies: Yes Surgeries History of Surgeries: Yes (HERNIA REPAIR, SINUS, FOOT, BARIATRIC, KNEE SCOPE, CYSTO) Surgeries: Abdominal, Adenoidectomy, Bladder Surgery, Gallbladder, Orthopedic, Renal, Tonsillectomy Respiratory History of Respiratory Disorde: Yes (USES CPAP) Respiratory Disorders: Sleep Apnea Cardiovascular History of Cardiac Disorders: Yes (2011-FROM FALL, TOOK COUMADIN FOR 6MONTHS) Cardiac Disorders: Deep Vein Thrombosis, High Cholesterol, Hypertension Neurological History of Neurological Disord: No Reproductive System Hx Reproductive Disorders: No Sexually Transmitted Disease: No HIV/AIDS: No Genitourinary Genitourinary Disorders: Benign Prostatic Hyperpl, Bladder Infection, Kidney Stones Gastrointestinal History of Gastrointestinal Di: Yes (HAS HAD GASTRIC SLEEVE) Gastrointestinal Disorders: Gastroesophageal Reflux, Chronic Constipation, Diverticulosis, Polyps, Hiatal Hernia, Irritable Bowel Musculoskeletal History of Musculoskeletal Dis: Yes (ARTHRITIS IN KNEES AND BACK) Musculoskeletal Disorders: Arthritis, Chronic Back Pain, Gout Endocrine History of Endocrine Disorders: No HEENT Loss of Vision: Bilateral Hearing Impairment: Denies Cancer History of Cancer: No Psychosocial History of Psychiatric Problem: Yes Behavioral Health Disorders: Sleep Difficulties, Anxiety, Depression Suicide Risk Score: 0 Integumentary History of Skin or Integumenta: Yes (RED PATCHES ON FACE) Blood Transfusions History of Blood Disorders: No Adverse Reaction to a Blood Tr: No Reviewed Nursing Assessment Reviewed/Agree w Nursing PMH: Yes Family Medical History Significant Family History: No Pertinent Family Hx Family Medial History: Arthritis 19 MOTHER Cardiovascular disease 19 MOTHER Colon cancer 19 FATHER 19 MOTHER G8 SISTER Dementia 19 MOTHER Hypertension 19 MOTHER G8 BROTHER Respiratory disorder 19 FATHER (lung ca) Thyroid disease 19 MOTHER Physical Exam Vital Signs Vital Sign - Last 12Hours 10/28/16 11:13 Temp 98.0 Pulse 57 Resp 18 B/P (MAP) 156/89 Pulse Ox 97 Capillary Refill : Less Than 3 Seconds General Appearance: WD/WN, no apparent distress Cardiovascular: normal peripheral pulses, regular rate, rhythm, no murmur Respiratory: chest non-tender, lungs clear, normal breath sounds, no respiratory distress, no accessory muscle use Back: normal inspection, no vertebral tenderness Shoulder: bone tenderness (anterior rt shoulder), No deformity, No ecchymosis, limited ROM (patient is noted to have full ROM but has difficulty abducting the rt shoulder past 90 degrees.), pain, soft tissue tenderness (rt shoulder globally TTP), swelling (mild swelling) Elbow/Forearm: normal inspection, non-tender, no evidence of injury, normal ROM , Right Wrist: Yes normal inspection, Yes non-tender, Yes no evidence of injury, Yes normal ROM Hand: normal inspection, non-tender, no evidence of injury, normal ROM, Right Neurologic/Tendon: normal sensation, normal motor functions, normal tendon functions, responds to pain, no evidence tendon injury Neurologic/Psychiatric: no motor/sensory deficits, alert, normal mood/affect, oriented x 3 Skin: normal color, warm/dry, No ecchymosis Progress/Results/Core Measures Results/Orders My Orders Orders - NASIR DOMINIQUE Shoulder, Right, 3 Views (10/28/16 11:54) Vital Signs/I&O Vital Sign - Last 12Hours 10/28/16 11:13 Temp 98.0 Pulse 57 Resp 18 B/P (MAP) 156/89 Pulse Ox 97 Blood Pressure Mean: 111 Diagnostic Imaging Diagonstic Imaging: Xray Plain Films/CT/US/NM/MRI: other (rt shoulder) Comments FINDINGS: The alignment is normal. There is mild arthrosis of the acromioclavicular joint. There is no fracture or dislocation. The right lung is clear. The soft tissues are unremarkable. IMPRESSION: Mild arthrosis of the acromioclavicular joint; otherwise, unremarkable exam. Dictated by: Dictated on workstation # [id number] Reviewed: Reviewed by Me (radiology report reviewed by me) Departure Communication (Admissions) Progress Notes Patient seen and evaluated. Denies need for pain medication at this time. States he has oxycodone at home. Patient states he is driving himself home from the ED. Diagnostic findings discussed with the patient. Plan for discharge to home. Impression Impression: Primary Impression: Injury of right rotator cuff Disposition: HOME, SELF-CARE Condition: Improved Departure-Patient Inst. Decision time for Depature: 13:03 Referrals: CHRIS OLIVER MD (PCP) Primary Care Physician SAIGE CASTILLO MD Patient Instructions: Rotator Cuff Injury (DC) Add. Discharge Instructions: All discharge instructions reviewed with patient and/or family. Voiced understanding. Continue usual medications. Follow-up with the [place] [facility] in October as previously scheduled for outpatient MRI of the right shoulder. Ice pack or heating pad as needed for pain. Avoid heavy lifting with the right upper extremity until released by your physician. Return to the emergency department for worsened pain, numbness, weakness, deformity, or any other concerns. Scripts Prednisone (Prednisone) 20 Mg Tab 40 MG PO DAILY, #10 TAB 0 Refills Prov: NASIR DOMINIQUE 10/28/16 NASIR DOMINIQUE Oct 28, 2016 11:29
--- OUTSIDE RECORDS SUMMARY | 2016-10-28 12:37 | XMS REPORT | Continuity of Care Document ---
Author Author Formerly [facility] Address Unknown Phone Unavailable Allergies Active Description Code Type Severity Reaction Onset Reported/Identified Relationship to Patient Clinical Status Yes ampicillin Drug Allergy 05/24/2008 Yes ampicillin Drug Allergy N/A N/A 05/24/2008 Yes ampicillin [id number] Drug Allergy Mild RASH 04/22/2009 Yes Penicillins [id number] Drug Allergy Mild N/A 07/04/2009 Yes benazepril 20 mg tablet Drug Allergy N/A N/A 09/01/2013 Yes EGGS EGGS Unknown N/A 12/23/2013 Yes sulfacetamide [id number] Drug Allergy Mild "MADE ME FEEL B 03/19/2015 Yes egg [id number] Drug Allergy Unknown N/A 07/19/2015 Medications Problems Date Dx Coded Attending Type Code Diagnosis Diagnosed By 11/17/2007 JULIET BELTRAN DO 465.9 UPPER RESPIRATORY INFECTION 11/17/2007 JULIET BELTRAN DO V16.49 FAMILY HISTORY OF MALIGNANT NEOPLASM OF OTHER 11/17/2007 465.9 UPPER RESPIRATORY INFECTION 11/17/2007 V16.49 FAMILY HISTORY OF MALIGNANT NEOPLASM OF OTHER 11/17/2007 465.9 UPPER RESPIRATORY INFECTION 11/17/2007 V16.49 FAMILY HISTORY OF MALIGNANT NEOPLASM OF OTHER 11/17/2007 BRIDGETT AGUILERA APRN 465.9 UPPER RESPIRATORY INFECTION 11/17/2007 BRIDGETT AGUILERA APRN V16.49 FAMILY HISTORY OF MALIGNANT NEOPLASM OF OTHER 11/17/2007 465.9 UPPER RESPIRATORY INFECTION 11/17/2007 V16.49 FAMILY HISTORY OF MALIGNANT NEOPLASM OF OTHER 11/17/2007 465.9 UPPER RESPIRATORY INFECTION 11/17/2007 V16.49 FAMILY HISTORY OF MALIGNANT NEOPLASM OF OTHER 11/17/2007 465.9 UPPER RESPIRATORY INFECTION 11/17/2007 V16.49 FAMILY HISTORY OF MALIGNANT NEOPLASM OF OTHER 11/17/2007 465.9 UPPER RESPIRATORY INFECTION 11/17/2007 V16.49 FAMILY HISTORY OF MALIGNANT NEOPLASM OF OTHER 11/17/2007 ZHU LEASE BROKER, RAHUL R 465.9 UPPER RESPIRATORY INFECTION 11/17/2007 AUDRA LEASE BROKER RAHUL R V16.49 FAMILY HISTORY OF MALIGNANT NEOPLASM OF OTHER 11/17/2007 BELTRAN DO, JULIET K 465.9 UPPER RESPIRATORY INFECTION 11/17/2007 BELTRAN DO, JULIET K V16.49 FAMILY HISTORY OF MALIGNANT NEOPLASM OF OTHER 11/17/2007 465.9 UPPER RESPIRATORY INFECTION 11/17/2007 V16.49 FAMILY HISTORY OF MALIGNANT NEOPLASM OF OTHER 11/17/2007 ZHU LEASE BROKERALFRED SteinerRAHUL R 465.9 UPPER RESPIRATORY INFECTION 11/17/2007 AUDRA LEASE BROKERALFRED SteinerRAHUL R V16.49 FAMILY HISTORY OF MALIGNANT NEOPLASM OF OTHER 11/17/2007 BELTRAN DO, JULIET K 465.9 UPPER RESPIRATORY INFECTION 11/17/2007 BELTRAN DO, JULIET K V16.49 FAMILY HISTORY OF MALIGNANT NEOPLASM OF OTHER 11/17/2007 465.9 UPPER RESPIRATORY INFECTION 11/17/2007 V16.49 FAMILY HISTORY OF MALIGNANT NEOPLASM OF OTHER 11/17/2007 465.9 UPPER RESPIRATORY INFECTION 11/17/2007 V16.49 FAMILY HISTORY OF MALIGNANT NEOPLASM OF OTHER 11/17/2007 465.9 UPPER RESPIRATORY INFECTION 11/17/2007 V16.49 FAMILY HISTORY OF MALIGNANT NEOPLASM OF OTHER 11/17/2007 BELTRAN DO, JULIET K 465.9 UPPER RESPIRATORY INFECTION 11/17/2007 BELTRAN DO, JULIET K V16.49 FAMILY HISTORY OF MALIGNANT NEOPLASM OF OTHER 11/17/2007 AUDRA LEASE BROKERALFRED SteinerRAHUL R 465.9 UPPER RESPIRATORY INFECTION 11/17/2007 AUDRA DIAZ RAHUL R V16.49 FAMILY HISTORY OF MALIGNANT NEOPLASM OF OTHER 11/17/2007 BELTRAN DO, JULIET K 465.9 UPPER RESPIRATORY INFECTION 11/17/2007 BELTRAN DO, JULIET K V16.49 FAMILY HISTORY OF MALIGNANT NEOPLASM OF OTHER 11/17/2007 BELTRAN DO, JULIET K 465.9 UPPER RESPIRATORY INFECTION 11/17/2007 BELTRAN DO, JULIET K V16.49 FAMILY HISTORY OF MALIGNANT NEOPLASM OF OTHER 11/17/2007 BELTRAN DO, JULIET K 465.9 UPPER RESPIRATORY INFECTION 11/17/2007 BELTRAN DO, JULIET K V16.49 FAMILY HISTORY OF MALIGNANT NEOPLASM OF OTHER 11/17/2007 BELTRAN DO, JULIET K 465.9 UPPER RESPIRATORY INFECTION 11/17/2007 BELTRAN DO, JULIET K V16.49 FAMILY HISTORY OF MALIGNANT NEOPLASM OF OTHER 11/17/2007 BELTRAN DO, JULIET K 465.9 UPPER RESPIRATORY INFECTION 11/17/2007 BELTRAN DO, JULIET K V16.49 FAMILY HISTORY OF MALIGNANT NEOPLASM OF OTHER 11/17/2007 BELTRAN DO, JULIET K 465.9 UPPER RESPIRATORY INFECTION 11/17/2007 BELTRAN DO, JULIET K V16.49 FAMILY HISTORY OF MALIGNANT NEOPLASM OF OTHER 11/17/2007 CHRIS STEVENSON MD 465.9 UPPER RESPIRATORY INFECTION 11/17/2007 CHRIS STEVENSON MD V16.49 FAMILY HISTORY OF MALIGNANT NEOPLASM OF OTHER 11/17/2007 BELTRAN DO, JULIET K 465.9 UPPER RESPIRATORY INFECTION 11/17/2007 BELTRAN DO, JULIET K V16.49 FAMILY HISTORY OF MALIGNANT NEOPLASM OF OTHER 11/17/2007 BELTRAN DO, JULIET K 465.9 UPPER RESPIRATORY INFECTION 11/17/2007 BELTRAN DO, JULIET K V16.49 FAMILY HISTORY OF MALIGNANT NEOPLASM OF OTHER 11/17/2007 BELTRAN DO, JULIET K 465.9 UPPER RESPIRATORY INFECTION 11/17/2007 BELTRAN DO, JULIET K V16.49 FAMILY HISTORY OF MALIGNANT NEOPLASM OF OTHER 11/17/2007 BELTRAN DO, JULIET K 465.9 UPPER RESPIRATORY INFECTION 11/17/2007 BELTRAN DO, JULIET K V16.49 FAMILY HISTORY OF MALIGNANT NEOPLASM OF OTHER 11/17/2007 BELTRAN DO, JULIET K 465.9 UPPER RESPIRATORY INFECTION 11/17/2007 BELTRAN DO, JULIET K V16.49 FAMILY HISTORY OF MALIGNANT NEOPLASM OF OTHER 11/17/2007 BELTRAN DO, JULIET K 465.9 UPPER RESPIRATORY INFECTION 11/17/2007 BELTRAN DO, JULIET K V16.49 FAMILY HISTORY OF MALIGNANT NEOPLASM OF OTHER 11/17/2007 BELTRAN DO, JULIET K 465.9 UPPER RESPIRATORY INFECTION 11/17/2007 BELTRAN DO, JULIET K V16.49 FAMILY HISTORY OF MALIGNANT NEOPLASM OF OTHER 11/17/2007 BELTRAN DO, JULIET K 465.9 UPPER RESPIRATORY INFECTION 11/17/2007 BELTRAN DO, JULIET K V16.49 FAMILY HISTORY OF MALIGNANT NEOPLASM OF OTHER 11/17/2007 BELTRAN DO, JULIET K 465.9 UPPER RESPIRATORY INFECTION 11/17/2007 BELTRAN DO, JULIET K V16.49 FAMILY HISTORY OF MALIGNANT NEOPLASM OF OTHER 11/17/2007 BELTRAN DO, UJLIET K 465.9 UPPER RESPIRATORY INFECTION 11/17/2007 BELTRAN DO, JULIET K V16.49 FAMILY HISTORY OF MALIGNANT NEOPLASM OF OTHER 11/17/2007 BELTRAN DO, JULIET K 465.9 UPPER RESPIRATORY INFECTION 11/17/2007 BELTRAN DO, JULIET K V16.49 FAMILY HISTORY OF MALIGNANT NEOPLASM OF OTHER 11/17/2007 BELTRAN DO, JULIET K 465.9 UPPER RESPIRATORY INFECTION 11/17/2007 BELTRAN DO, JULIET K V16.49 FAMILY HISTORY OF MALIGNANT NEOPLASM OF OTHER 11/17/2007 BELTRAN DO, JULIET K 465.9 UPPER RESPIRATORY INFECTION 11/17/2007 BELTRAN DO, JULIET K V16.49 FAMILY HISTORY OF MALIGNANT NEOPLASM OF OTHER 11/17/2007 GRAHAM ESTRELLA, CHRIS N 465.9 UPPER RESPIRATORY INFECTION 11/17/2007 CHRIS STEVENSON MD V16.49 FAMILY HISTORY OF MALIGNANT NEOPLASM OF OTHER 11/17/2007 BELTRAN DO, JULIET K 465.9 UPPER RESPIRATORY INFECTION 11/17/2007 BELTRAN DO, JULIET K V16.49 FAMILY HISTORY OF MALIGNANT NEOPLASM OF OTHER 11/17/2007 BELTRAN DO, JULIET K 465.9 UPPER RESPIRATORY INFECTION 11/17/2007 BELTRAN DO, JULIET K V16.49 FAMILY HISTORY OF MALIGNANT NEOPLASM OF OTHER 11/17/2007 BELTRAN DO, JULIET K 465.9 UPPER RESPIRATORY INFECTION 11/17/2007 BELTRAN DO, JULIET K V16.49 FAMILY HISTORY OF MALIGNANT NEOPLASM OF OTHER 11/17/2007 BELTRAN DO, JULIET K 465.9 UPPER RESPIRATORY INFECTION 11/17/2007 BELTRAN DO, JULIET K V16.49 FAMILY HISTORY OF MALIGNANT NEOPLASM OF OTHER 11/17/2007 BELTRAN DO, JULIET K 465.9 UPPER RESPIRATORY INFECTION 11/17/2007 BELTRAN DO, JULIET K V16.49 FAMILY HISTORY OF MALIGNANT NEOPLASM OF OTHER 11/17/2007 BELTRAN DO, JULIET K 465.9 UPPER RESPIRATORY INFECTION 11/17/2007 BELTRAN DO, JULIET K V16.49 FAMILY HISTORY OF MALIGNANT NEOPLASM OF OTHER 11/17/2007 GRAHAM ESTRELLA, CHRIS N 465.9 UPPER RESPIRATORY INFECTION 11/17/2007 CHRIS STEVENSON MD N V16.49 FAMILY HISTORY OF MALIGNANT NEOPLASM OF OTHER 11/17/2007 CHRIS STEVENSON MD N 465.9 UPPER RESPIRATORY INFECTION 11/17/2007 CHRIS STEVENSON MD N V16.49 FAMILY HISTORY OF MALIGNANT NEOPLASM OF OTHER 11/17/2007 BELTRAN DO, JULIET K 465.9 UPPER RESPIRATORY INFECTION 11/17/2007 BELTRAN DO, JULIET K V16.49 FAMILY HISTORY OF MALIGNANT NEOPLASM OF OTHER 11/17/2007 BELTRAN DO, JULIET K 465.9 UPPER RESPIRATORY INFECTION 11/17/2007 BELTRAN DO, JULIET K V16.49 FAMILY HISTORY OF MALIGNANT NEOPLASM OF OTHER 11/17/2007 BELTRAN DO, JULIET K 465.9 UPPER RESPIRATORY INFECTION 11/17/2007 BELTRAN DO, JULIET K V16.49 FAMILY HISTORY OF MALIGNANT NEOPLASM OF OTHER 11/17/2007 BELTRAN DO, JULIET K 465.9 UPPER RESPIRATORY INFECTION 11/17/2007 BELTRAN DO, JULIET K V16.49 FAMILY HISTORY OF MALIGNANT NEOPLASM OF OTHER 11/17/2007 BELTRAN DO, JULIET K 465.9 UPPER RESPIRATORY INFECTION 11/17/2007 BELTRAN DO, JULIET K V16.49 FAMILY HISTORY OF MALIGNANT NEOPLASM OF OTHER 11/17/2007 BELTRAN DO, JULIET K 465.9 UPPER RESPIRATORY INFECTION 11/17/2007 BELTRAN DO, JULIET K V16.49 FAMILY HISTORY OF MALIGNANT NEOPLASM OF OTHER 11/17/2007 LUCA DPM, KELLE 465.9 UPPER RESPIRATORY INFECTION 11/17/2007 LUCA DPM, KELLE V16.49 FAMILY HISTORY OF MALIGNANT NEOPLASM OF OTHER 11/17/2007 AUDRA LEASE BROKER, RAHUL R 465.9 UPPER RESPIRATORY INFECTION 11/17/2007 ZHU LEASE BROKER, RAHUL R V16.49 FAMILY HISTORY OF MALIGNANT NEOPLASM OF OTHER 11/17/2007 BELTRAN DO, JULIET K 465.9 UPPER RESPIRATORY INFECTION 11/17/2007 BELTRAN DO, JULIET K V16.49 FAMILY HISTORY OF MALIGNANT NEOPLASM OF OTHER 11/17/2007 BELTRAN DO, JULIET K 465.9 UPPER RESPIRATORY INFECTION 11/17/2007 BELTRAN DO, JULIET K V16.49 FAMILY HISTORY OF MALIGNANT NEOPLASM OF OTHER 11/17/2007 BELTRAN DO, JULIET K 465.9 UPPER RESPIRATORY INFECTION 11/17/2007 BELTRAN DO, JULIET K V16.49 FAMILY HISTORY OF MALIGNANT NEOPLASM OF OTHER 11/17/2007 BELTRAN DO, JULIET K 465.9 UPPER RESPIRATORY INFECTION 11/17/2007 BELTRAN DO, JULIET K V16.49 FAMILY HISTORY OF MALIGNANT NEOPLASM OF OTHER 11/17/2007 BELTRAN DO, JULIET K 465.9 UPPER RESPIRATORY INFECTION 11/17/2007 BELTRAN DO, JULIET K V16.49 FAMILY HISTORY OF MALIGNANT NEOPLASM OF OTHER 11/17/2007 JULIET BELTRAN DO K 465.9 UPPER RESPIRATORY INFECTION 11/17/2007 JULIET BELTRAN DO K V16.49 FAMILY HISTORY OF MALIGNANT NEOPLASM OF OTHER 11/17/2007 CHRIS STEVENSON MD N 465.9 UPPER RESPIRATORY INFECTION 11/17/2007 CHRIS STEVENSON MD V16.49 FAMILY HISTORY OF MALIGNANT NEOPLASM OF OTHER 11/17/2007 CHRIS STEVENSON MD 465.9 UPPER RESPIRATORY INFECTION 11/17/2007 CHRIS STEVENOSN MD V16.49 FAMILY HISTORY OF MALIGNANT NEOPLASM OF OTHER 11/17/2007 JULIET BELTRAN DO K 465.9 UPPER RESPIRATORY INFECTION 11/17/2007 JULIET BELTRAN DO K V16.49 FAMILY HISTORY OF MALIGNANT NEOPLASM OF OTHER 11/17/2007 JULIET BELTRAN DO K 465.9 UPPER RESPIRATORY INFECTION 11/17/2007 JULIET BELTRAN DO V16.49 FAMILY HISTORY OF MALIGNANT NEOPLASM OF OTHER 11/17/2007 CHRIS STEVENSON MD N 465.9 UPPER RESPIRATORY INFECTION 11/17/2007 CHRIS STEVENSON MD V16.49 FAMILY HISTORY OF MALIGNANT NEOPLASM OF OTHER 11/17/2007 CHRIS STEVENSON MD N 465.9 UPPER RESPIRATORY INFECTION 11/17/2007 CHRIS STEVENSON MD V16.49 FAMILY HISTORY OF MALIGNANT NEOPLASM OF OTHER 11/17/2007 JULIET BELTRAN DO K 465.9 UPPER RESPIRATORY INFECTION 11/17/2007 JULIET BELTRAN DO K V16.49 FAMILY HISTORY OF MALIGNANT NEOPLASM OF OTHER 11/17/2007 CHRIS STEVENSON MD N 465.9 UPPER RESPIRATORY INFECTION 11/17/2007 CHRIS STEVENSON MD V16.49 FAMILY HISTORY OF MALIGNANT NEOPLASM OF OTHER 11/17/2007 JULIET BELTRAN DO K 465.9 UPPER RESPIRATORY INFECTION 11/17/2007 JULIET BELTRAN DO K V16.49 FAMILY HISTORY OF MALIGNANT NEOPLASM OF OTHER 05/04/2008 JULIET BETLRAN DO K NODX NO DIAGNOSIS 05/04/2008 NODX NO DIAGNOSIS 05/04/2008 NODX NO DIAGNOSIS 05/04/2008 BRIDGETT AGUILERA APRN NODX NO DIAGNOSIS 05/04/2008 NODX NO DIAGNOSIS 05/04/2008 NODX NO DIAGNOSIS 05/04/2008 NODX NO DIAGNOSIS 05/04/2008 NODX NO DIAGNOSIS 05/04/2008 ZHU LEASE BROKER, RAHUL R NODX NO DIAGNOSIS 05/04/2008 BELTRAN DO, JULIET K NODX NO DIAGNOSIS 05/04/2008 NODX NO DIAGNOSIS 05/04/2008 ZHU LEASE BROKER, RAHUL R NODX NO DIAGNOSIS 05/04/2008 BELTRAN DO, JULIET K NODX NO DIAGNOSIS 05/04/2008 NODX NO DIAGNOSIS 05/04/2008 NODX NO DIAGNOSIS 05/04/2008 NODX NO DIAGNOSIS 05/04/2008 BELTRAN DO, JULIET K NODX NO DIAGNOSIS 05/04/2008 AUDRA LEASE BROKER, RAHUL R NODX NO DIAGNOSIS 05/04/2008 BELTRAN DO, JULIET K NODX NO DIAGNOSIS 05/04/2008 BELTRAN DO, JULIET K NODX NO DIAGNOSIS 05/04/2008 BELTRAN DO, JULIET K NODX NO DIAGNOSIS 05/04/2008 BELTRAN DO, JULIET K NODX NO DIAGNOSIS 05/04/2008 BELTRAN DO, JULIET K NODX NO DIAGNOSIS 05/04/2008 BELTRAN DO, JULIET K NODX NO DIAGNOSIS 05/04/2008 GRAHAM ESTRELLA, CHRIS Steiner NODX NO DIAGNOSIS 05/04/2008 BELTRAN DO, JULIET K NODX NO DIAGNOSIS 05/04/2008 BELTRAN DO, JULIET K NODX NO DIAGNOSIS 05/04/2008 BELTRAN DO, JULIET K NODX NO DIAGNOSIS 05/04/2008 BELTRAN DO, JULIET K NODX NO DIAGNOSIS 05/04/2008 BELTRAN DO, JULIET K NODX NO DIAGNOSIS 05/04/2008 BELTRAN DO, JULIET K NODX NO DIAGNOSIS 05/04/2008 BELTRAN DO, JULIET K NODX NO DIAGNOSIS 05/04/2008 BELTRAN DO, JULIET K NODX NO DIAGNOSIS 05/04/2008 BELTRAN DO, JULIET K NODX NO DIAGNOSIS 05/04/2008 BELTRAN DO, JULIET K NODX NO DIAGNOSIS 05/04/2008 BELTRAN DO, JULIET K NODX NO DIAGNOSIS 05/04/2008 BELTRAN DO, JULIET K NODX NO DIAGNOSIS 05/04/2008 BELTRAN DO, JULIET K NODX NO DIAGNOSIS 05/04/2008 CHRIS STEVENSON MD NODX NO DIAGNOSIS 05/04/2008 BELTRAN DO, JULIET K NODX NO DIAGNOSIS 05/04/2008 BELTRAN DO, JULIET K NODX NO DIAGNOSIS 05/04/2008 BELTRAN DO, JULIET K NODX NO DIAGNOSIS 05/04/2008 BELTRAN DO, JULIET K NODX NO DIAGNOSIS 05/04/2008 BELTRAN DO, JULIET K NODX NO DIAGNOSIS 05/04/2008 BELTRAN DO, JULIET K NODX NO DIAGNOSIS 05/04/2008 GRAHAM ESTRELLA, CHRIS Steiner NODX NO DIAGNOSIS 05/04/2008 GRAHAM ESTRELLA, CHRIS Steiner NODX NO DIAGNOSIS 05/04/2008 BELTRAN DO, JULIET K NODX NO DIAGNOSIS 05/04/2008 BELTRAN DO, JULIET K NODX NO DIAGNOSIS 05/04/2008 BELTRAN DO, JULIET K NODX NO DIAGNOSIS 05/04/2008 BELTRAN DO, JULIET K NODX NO DIAGNOSIS 05/04/2008 BELTRAN DO, JULIET K NODX NO DIAGNOSIS 05/04/2008 BELTRAN DO, JULIET K NODX NO DIAGNOSIS 05/04/2008 LUCA DPM, KELLE NODX NO DIAGNOSIS 05/04/2008 AUDRA ZAMORAN, RAHUL R NODX NO DIAGNOSIS 05/04/2008 BELTRAN DO, JULIET K NODX NO DIAGNOSIS 05/04/2008 BELTRAN DO, JULIET K NODX NO DIAGNOSIS 05/04/2008 BELTRAN DO, JULIET K NODX NO DIAGNOSIS 05/04/2008 BELTRAN DO, JULIET K NODX NO DIAGNOSIS 05/04/2008 BELTRAN DO, JULIET K NODX NO DIAGNOSIS 05/04/2008 BELTRAN DO, JULIET K NODX NO DIAGNOSIS 05/04/2008 GRAHAM ESTRELLA, CHRIS Steiner NODX NO DIAGNOSIS 05/04/2008 GRAHAM ESTRELLA, CHRIS Steiner NODX NO DIAGNOSIS 05/04/2008 BELTRAN DO, JULIET K NODX NO DIAGNOSIS 05/04/2008 BELTRAN DO, JULIET K NODX NO DIAGNOSIS 05/04/2008 GRAHAM ESTRELLA, CHRIS Stiener NODX NO DIAGNOSIS 05/04/2008 GRAHAM ESTRELLA, CHRIS Steiner NODX NO DIAGNOSIS 05/04/2008 BELTRAN DO, JULIET K NODX NO DIAGNOSIS 05/04/2008 GRAHAM ESTRELLA, CHRIS Steiner NODX NO DIAGNOSIS 05/04/2008 BELTRAN DO, JULIET K NODX NO DIAGNOSIS 05/24/2008 BELTRAN DO, JULIET K 388.7 OTALGIA 05/24/2008 BELTRAN DO, JULIET K 401.9 Combined Systolic And Diastolic Elevation 05/24/2008 388.7 OTALGIA 05/24/2008 401.9 Combined Systolic And Diastolic Elevation 05/24/2008 388.7 OTALGIA 05/24/2008 401.9 Combined Systolic And Diastolic Elevation 05/24/2008 BRIDGETT AGUILERA APRN S 388.7 OTALGIA 05/24/2008 BRIDGETT AGUILERA APRN S 401.9 Combined Systolic And Diastolic Elevation 05/24/2008 388.7 OTALGIA 05/24/2008 401.9 Combined Systolic And Diastolic Elevation 05/24/2008 388.7 OTALGIA 05/24/2008 401.9 Combined Systolic And Diastolic Elevation 05/24/2008 388.7 OTALGIA 05/24/2008 401.9 Combined Systolic And Diastolic Elevation 05/24/2008 388.7 OTALGIA 05/24/2008 401.9 Combined Systolic And Diastolic Elevation 05/24/2008 SHANNON ZHU APRNIA R 388.7 OTALGIA 05/24/2008 ALFRED ZHU APRNRICIA R 401.9 Combined Systolic And Diastolic Elevation 05/24/2008 BELTRAN DO, JULIET K 388.7 OTALGIA 05/24/2008 BELTRAN DO, JULIET K 401.9 Combined Systolic And Diastolic Elevation 05/24/2008 388.7 OTALGIA 05/24/2008 401.9 Combined Systolic And Diastolic Elevation 05/24/2008 ALFRED ZHU APRNRICIA R 388.7 OTALGIA 05/24/2008 ALFRED ZHU APRNRICIA R 401.9 Combined Systolic And Diastolic Elevation 05/24/2008 BELTRAN DO, JULIET K 388.7 OTALGIA 05/24/2008 BELTRAN DO, JULIET K 401.9 Combined Systolic And Diastolic Elevation 05/24/2008 388.7 OTALGIA 05/24/2008 401.9 Combined Systolic And Diastolic Elevation 05/24/2008 388.7 OTALGIA 05/24/2008 401.9 Combined Systolic And Diastolic Elevation 05/24/2008 388.7 OTALGIA 05/24/2008 401.9 Combined Systolic And Diastolic Elevation 05/24/2008 BELTRAN DO, JULIET K 388.7 OTALGIA 05/24/2008 BELTRAN DO, JULIET K 401.9 Combined Systolic And Diastolic Elevation 05/24/2008 AUDRA DIAZ RAHUL R 388.7 OTALGIA 05/24/2008 AUDRA DIAZ RAHUL R 401.9 Combined Systolic And Diastolic Elevation 05/24/2008 BELTRAN DO, JULIET K 388.7 OTALGIA 05/24/2008 BELTRAN DO, JULIET K 401.9 Combined Systolic And Diastolic Elevation 05/24/2008 BELTRAN DO, JULIET K 388.7 OTALGIA 05/24/2008 BELTRAN DO, JULIET K 401.9 Combined Systolic And Diastolic Elevation 05/24/2008 BELTRAN DO, JULIET K 388.7 OTALGIA 05/24/2008 BELTRAN DO, JULIET K 401.9 Combined Systolic And Diastolic Elevation 05/24/2008 BELTRAN DO, JULIET K 388.7 OTALGIA 05/24/2008 BELTRAN DO, JULIET K 401.9 Combined Systolic And Diastolic Elevation 05/24/2008 BELTRAN DO, JULIET K 388.7 OTALGIA 05/24/2008 BELTRAN DO, JULIET K 401.9 Combined Systolic And Diastolic Elevation 05/24/2008 BELTRAN DO, JULIET K 388.7 OTALGIA 05/24/2008 BELTRAN DO, JULIET K 401.9 Combined Systolic And Diastolic Elevation 05/24/2008 GRAHAM ESTRELLA, CHRIS N 388.7 OTALGIA 05/24/2008 CHRIS STEVENSON MD N 401.9 Combined Systolic And Diastolic Elevation 05/24/2008 BELTRAN DO, JULIET K 388.7 OTALGIA 05/24/2008 BELTRAN DO, JULIET K 401.9 Combined Systolic And Diastolic Elevation 05/24/2008 BELTRAN DO, JULIET K 388.7 OTALGIA 05/24/2008 BELTRAN DO, JULIET K 401.9 Combined Systolic And Diastolic Elevation 05/24/2008 BELTRAN DO, JULIET K 388.7 OTALGIA 05/24/2008 BELTRAN DO, JULIET K 401.9 Combined Systolic And Diastolic Elevation 05/24/2008 BELTRAN DO, JULIET K 388.7 OTALGIA 05/24/2008 BELTRAN DO, JULIET K 401.9 Combined Systolic And Diastolic Elevation 05/24/2008 BELTRAN DO, JULIET K 388.7 OTALGIA 05/24/2008 BELTRAN DO, JULIET K 401.9 Combined Systolic And Diastolic Elevation 05/24/2008 BELTRAN DO, JULIET K 388.7 OTALGIA 05/24/2008 BELTRAN DO, JULIET K 401.9 Combined Systolic And Diastolic Elevation 05/24/2008 BELTRAN DO, JULIET K 388.7 OTALGIA 05/24/2008 BELTRAN DO, JULIET K 401.9 Combined Systolic And Diastolic Elevation 05/24/2008 BELTRAN DO, JULIET K 388.7 OTALGIA 05/24/2008 BELTRAN DO, JULIET K 401.9 Combined Systolic And Diastolic Elevation 05/24/2008 BELTRAN DO, JULIET K 388.7 OTALGIA 05/24/2008 BELTRAN DO, JULIET K 401.9 Combined Systolic And Diastolic Elevation 05/24/2008 BELTRAN DO, JULIET K 388.7 OTALGIA 05/24/2008 BELTRAN DO, JULIET K 401.9 Combined Systolic And Diastolic Elevation 05/24/2008 BELTRAN DO, JULIET K 388.7 OTALGIA 05/24/2008 BELTRAN DO, JULIET K 401.9 Combined Systolic And Diastolic Elevation 05/24/2008 BELTRAN DO, JULIET K 388.7 OTALGIA 05/24/2008 BELTRAN DO, JULIET K 401.9 Combined Systolic And Diastolic Elevation 05/24/2008 BELTRAN DO, JULIET K 388.7 OTALGIA 05/24/2008 BELTRAN DO, JULIET K 401.9 Combined Systolic And Diastolic Elevation 05/24/2008 CHRIS STEVENSON MD N 388.7 OTALGIA 05/24/2008 GRAHAM ESTRELLA, CHRIS N 401.9 Combined Systolic And Diastolic Elevation 05/24/2008 BELTRAN DO, JULIET K 388.7 OTALGIA 05/24/2008 BELTRAN DO, JULIET K 401.9 Combined Systolic And Diastolic Elevation 05/24/2008 BELTRAN DO, JULIET K 388.7 OTALGIA 05/24/2008 BELTRAN DO, JULIET K 401.9 Combined Systolic And Diastolic Elevation 05/24/2008 BELTRAN DO, JULIET K 388.7 OTALGIA 05/24/2008 BELTRAN DO, JULIET K 401.9 Combined Systolic And Diastolic Elevation 05/24/2008 BELTRAN DO, JULIET K 388.7 OTALGIA 05/24/2008 BELTRAN DO, JULIET K 401.9 Combined Systolic And Diastolic Elevation 05/24/2008 BELTRAN DO, JULIET K 388.7 OTALGIA 05/24/2008 BELTRAN DO, JULIET K 401.9 Combined Systolic And Diastolic Elevation 05/24/2008 BELTRAN DO, JULIET K 388.7 OTALGIA 05/24/2008 BELTRAN DO, JULIET K 401.9 Combined Systolic And Diastolic Elevation 05/24/2008 CHRIS STEVENSON MD N 388.7 OTALGIA 05/24/2008 CHRIS STEVENSON MD N 401.9 COMBINED SYSTOLIC AND DIASTOLIC ELEVATION 05/24/2008 GRAHAM ESTRELLA, CHRIS N 388.7 OTALGIA 05/24/2008 GRAHAM ESTRELLA, CHRIS N 401.9 COMBINED SYSTOLIC AND DIASTOLIC ELEVATION 05/24/2008 BELTRAN DO, JULIET K 388.7 OTALGIA 05/24/2008 BELTRAN DO, JULIET K 401.9 COMBINED SYSTOLIC AND DIASTOLIC ELEVATION 05/24/2008 BELTRAN DO, JULIET K 388.7 OTALGIA 05/24/2008 BELTRAN DO, JULIET K 401.9 COMBINED SYSTOLIC AND DIASTOLIC ELEVATION 05/24/2008 BELTRAN DO, JULIET K 388.7 OTALGIA 05/24/2008 BELTRAN DO, JULIET K 401.9 COMBINED SYSTOLIC AND DIASTOLIC ELEVATION 05/24/2008 BELTRAN DO, JULIET K 388.7 OTALGIA 05/24/2008 BELTRAN DO, JULIET K 401.9 COMBINED SYSTOLIC AND DIASTOLIC ELEVATION 05/24/2008 BELTRAN DO, JULIET K 388.7 OTALGIA 05/24/2008 BELTRAN DO, JULIET K 401.9 COMBINED SYSTOLIC AND DIASTOLIC ELEVATION 05/24/2008 BELTRAN DO, JULIET K 388.7 OTALGIA 05/24/2008 BELTRAN DO, JULIET K 401.9 COMBINED SYSTOLIC AND DIASTOLIC ELEVATION 05/24/2008 LUCA DPM, KELLE 388.7 OTALGIA 05/24/2008 LUCA DPM, KELLE 401.9 COMBINED SYSTOLIC AND DIASTOLIC ELEVATION 05/24/2008 ZHU LEASE BROKER, RAHUL R 388.7 OTALGIA 05/24/2008 ZHU LEASE BROKER, RAHUL R 401.9 COMBINED SYSTOLIC AND DIASTOLIC ELEVATION 05/24/2008 BELTRAN DO, JULIET K 388.7 OTALGIA 05/24/2008 BELTRAN DO, JULIET K 401.9 COMBINED SYSTOLIC AND DIASTOLIC ELEVATION 05/24/2008 BELTRAN DO, JULIET K 388.7 OTALGIA 05/24/2008 BELTRAN DO, JULIET K 401.9 COMBINED SYSTOLIC AND DIASTOLIC ELEVATION 05/24/2008 BELTRAN DO, JULIET K 388.7 OTALGIA 05/24/2008 BELTRAN DO, JULIET K 401.9 COMBINED SYSTOLIC AND DIASTOLIC ELEVATION 05/24/2008 BELTRAN DO, JULIET K 388.7 OTALGIA 05/24/2008 BELTRAN DO, JULIET K 401.9 COMBINED SYSTOLIC AND DIASTOLIC ELEVATION 05/24/2008 BELTRAN DO, JULIET K 388.7 OTALGIA 05/24/2008 BELTRAN DO, JULIET K 401.9 COMBINED SYSTOLIC AND DIASTOLIC ELEVATION 05/24/2008 BELTRAN DO, JULIET K 388.7 OTALGIA 05/24/2008 BELTRAN DO, JULIET K 401.9 COMBINED SYSTOLIC AND DIASTOLIC ELEVATION 05/24/2008 CHRIS STEVENSON MD N 388.7 OTALGIA 05/24/2008 CHRIS STEVENSON MD N 401.9 COMBINED SYSTOLIC AND DIASTOLIC ELEVATION 05/24/2008 CHRIS STEVENSON MD N 388.7 OTALGIA 05/24/2008 CHRIS STEVENSON MD N 401.9 COMBINED SYSTOLIC AND DIASTOLIC ELEVATION 05/24/2008 BELTRAN DO, JULIET K 388.7 OTALGIA 05/24/2008 BELTRAN DO, JULIET K 401.9 COMBINED SYSTOLIC AND DIASTOLIC ELEVATION 05/24/2008 BELTRAN DO, JULIET K 388.7 OTALGIA 05/24/2008 BELTRAN DO, JULIET K 401.9 COMBINED SYSTOLIC AND DIASTOLIC ELEVATION 05/24/2008 CHRIS STEVENSON MD N 388.7 OTALGIA 05/24/2008 CHRIS STEVENSON MD N 401.9 COMBINED SYSTOLIC AND DIASTOLIC ELEVATION 05/24/2008 CHRIS STEVENSON MD N 388.7 OTALGIA 05/24/2008 CHRIS STEVENSON MD N 401.9 COMBINED SYSTOLIC AND DIASTOLIC ELEVATION 05/24/2008 BELTRAN DO, JULIET K 388.7 OTALGIA 05/24/2008 BELTRAN DO, JULIET K 401.9 COMBINED SYSTOLIC AND DIASTOLIC ELEVATION 05/24/2008 CHRIS STEVENSON MD N 388.7 OTALGIA 05/24/2008 CHRIS STEVENSON MD N 401.9 COMBINED SYSTOLIC AND DIASTOLIC ELEVATION 05/24/2008 BELTRAN DO, JULIET K 388.7 OTALGIA 05/24/2008 BELTRAN DO, JULIET K 401.9 COMBINED SYSTOLIC AND DIASTOLIC ELEVATION 05/25/2008 BELTRAN DO, JULIET K 401.1 ESSENTIAL HYPERTENSION BENIGN 05/25/2008 401.1 ESSENTIAL HYPERTENSION BENIGN 05/25/2008 401.1 ESSENTIAL HYPERTENSION BENIGN 05/25/2008 BRIDGETT AGUILERA APRN 401.1 ESSENTIAL HYPERTENSION BENIGN 05/25/2008 401.1 ESSENTIAL HYPERTENSION BENIGN 05/25/2008 401.1 ESSENTIAL HYPERTENSION BENIGN 05/25/2008 401.1 ESSENTIAL HYPERTENSION BENIGN 05/25/2008 401.1 ESSENTIAL HYPERTENSION BENIGN 05/25/2008 AUDRA LEASE BROKERSHANNONIA R 401.1 ESSENTIAL HYPERTENSION BENIGN 05/25/2008 BELTRAN DO, JULIET K 401.1 ESSENTIAL HYPERTENSION BENIGN 05/25/2008 401.1 ESSENTIAL HYPERTENSION BENIGN 05/25/2008 ALFRED ZHU APRNRICIA R 401.1 ESSENTIAL HYPERTENSION BENIGN 05/25/2008 BELTRAN DO, JULIET K 401.1 ESSENTIAL HYPERTENSION BENIGN 05/25/2008 401.1 ESSENTIAL HYPERTENSION BENIGN 05/25/2008 401.1 ESSENTIAL HYPERTENSION BENIGN 05/25/2008 401.1 ESSENTIAL HYPERTENSION BENIGN 05/25/2008 BELTRAN DO, JULIET K 401.1 ESSENTIAL HYPERTENSION BENIGN 05/25/2008 AUDRA LEASE BROKERALFREDRAHUL R 401.1 ESSENTIAL HYPERTENSION BENIGN 05/25/2008 BELTRAN DO, JULIET K 401.1 ESSENTIAL HYPERTENSION BENIGN 05/25/2008 BELTRAN DO, JULIET K 401.1 ESSENTIAL HYPERTENSION BENIGN 05/25/2008 BELTRAN DO, JULIET K 401.1 ESSENTIAL HYPERTENSION BENIGN 05/25/2008 BELTRAN DO, JULIET K 401.1 ESSENTIAL HYPERTENSION BENIGN 05/25/2008 BELTRAN DO, JULIET K 401.1 ESSENTIAL HYPERTENSION BENIGN 05/25/2008 BELTRAN DO, JULIET K 401.1 ESSENTIAL HYPERTENSION BENIGN 05/25/2008 GRAHAM ESTRELLA, CHRIS Steiner 401.1 ESSENTIAL HYPERTENSION BENIGN 05/25/2008 BELTRAN DO, JULIET K 401.1 ESSENTIAL HYPERTENSION BENIGN 05/25/2008 BELTRAN DO, JULIET K 401.1 ESSENTIAL HYPERTENSION BENIGN 05/25/2008 BELTRAN DO, JULIET K 401.1 ESSENTIAL HYPERTENSION BENIGN 05/25/2008 BELTRAN DO, JULIET K 401.1 ESSENTIAL HYPERTENSION BENIGN 05/25/2008 BELTRAN DO, JULIET K 401.1 ESSENTIAL HYPERTENSION BENIGN 05/25/2008 BELTRAN DO, JULIET K 401.1 ESSENTIAL HYPERTENSION BENIGN 05/25/2008 BELTRAN DO, JULIET K 401.1 ESSENTIAL HYPERTENSION BENIGN 05/25/2008 BELTRAN DO, JULIET K 401.1 ESSENTIAL HYPERTENSION BENIGN 05/25/2008 BELTRAN DO, JULIET K 401.1 ESSENTIAL HYPERTENSION BENIGN 05/25/2008 BELTRAN DO, JULIET K 401.1 ESSENTIAL HYPERTENSION BENIGN 05/25/2008 BELTRAN DO, JULIET K 401.1 ESSENTIAL HYPERTENSION BENIGN 05/25/2008 BELTRAN DO, JULIET K 401.1 ESSENTIAL HYPERTENSION BENIGN 05/25/2008 BELTRAN DO, JULIET K 401.1 ESSENTIAL HYPERTENSION BENIGN 05/25/2008 CHRIS STEVENSON MD N 401.1 ESSENTIAL HYPERTENSION BENIGN 05/25/2008 BELTRAN DO, JULIET K 401.1 ESSENTIAL HYPERTENSION BENIGN 05/25/2008 BELTRAN DO, JULIET K 401.1 ESSENTIAL HYPERTENSION BENIGN 05/25/2008 BELTRAN DO, JULIET K 401.1 ESSENTIAL HYPERTENSION BENIGN 05/25/2008 BELTRAN DO, JULIET K 401.1 ESSENTIAL HYPERTENSION BENIGN 05/25/2008 BELTRAN DO, JULIET K 401.1 ESSENTIAL HYPERTENSION BENIGN 05/25/2008 BELTRAN DO, JULIET K 401.1 ESSENTIAL HYPERTENSION BENIGN 05/25/2008 CHRIS STEVENSON MD N 401.1 ESSENTIAL HYPERTENSION BENIGN 05/25/2008 CHRIS STEVENSON MD N 401.1 ESSENTIAL HYPERTENSION BENIGN 05/25/2008 BELTRAN DO, JULIET K 401.1 ESSENTIAL HYPERTENSION BENIGN 05/25/2008 BELTRAN DO, JULIET K 401.1 ESSENTIAL HYPERTENSION BENIGN 05/25/2008 BELTRAN DO, JULIET K 401.1 ESSENTIAL HYPERTENSION BENIGN 05/25/2008 BELTRAN DO, JULIET K 401.1 ESSENTIAL HYPERTENSION BENIGN 05/25/2008 BELTRAN DO, JULIET K 401.1 ESSENTIAL HYPERTENSION BENIGN 05/25/2008 BELTRAN DO, JULIET K 401.1 ESSENTIAL HYPERTENSION BENIGN 05/25/2008 LUCA DPM, KELLE 401.1 ESSENTIAL HYPERTENSION BENIGN 05/25/2008 AUDRA DIAZ, RAHUL R 401.1 ESSENTIAL HYPERTENSION BENIGN 05/25/2008 BELTRAN DO, JULIET K 401.1 ESSENTIAL HYPERTENSION BENIGN 05/25/2008 BELTRAN DO, JULIET K 401.1 ESSENTIAL HYPERTENSION BENIGN 05/25/2008 BELTRAN DO, JULIET K 401.1 ESSENTIAL HYPERTENSION BENIGN 05/25/2008 BELTRAN DO, JULIET K 401.1 ESSENTIAL HYPERTENSION BENIGN 05/25/2008 BELTRAN DO, JULIET K 401.1 ESSENTIAL HYPERTENSION BENIGN 05/25/2008 BELTRAN DO, JULIET K 401.1 ESSENTIAL HYPERTENSION BENIGN 05/25/2008 CHRIS STEVENSON MD N 401.1 ESSENTIAL HYPERTENSION BENIGN 05/25/2008 CHRIS STEVENSON MD N 401.1 ESSENTIAL HYPERTENSION BENIGN 05/25/2008 BELTRAN DO, JULIET K 401.1 ESSENTIAL HYPERTENSION BENIGN 05/25/2008 BELTRAN DO, JULIET K 401.1 ESSENTIAL HYPERTENSION BENIGN 05/25/2008 CHRIS STEVENSON MD N 401.1 ESSENTIAL HYPERTENSION BENIGN 05/25/2008 CHRIS STEVENSON MD 401.1 ESSENTIAL HYPERTENSION BENIGN 05/25/2008 BELTRAN DO, JULIET K 401.1 ESSENTIAL HYPERTENSION BENIGN 05/25/2008 CHRIS STEVENSON MD 401.1 ESSENTIAL HYPERTENSION BENIGN 05/25/2008 BELTRAN DO, JULIET K 401.1 ESSENTIAL HYPERTENSION BENIGN 06/26/2008 BELTRAN DO, JULIET K 278.01 OBESITY MORBID 06/26/2008 278.01 OBESITY MORBID 06/26/2008 278.01 OBESITY MORBID 06/26/2008 BRIDGETT AGUILERA APRN 278.01 OBESITY MORBID 06/26/2008 278.01 OBESITY MORBID 06/26/2008 278.01 OBESITY MORBID 06/26/2008 278.01 OBESITY MORBID 06/26/2008 278.01 OBESITY MORBID 06/26/2008 RAHUL ZHU APRN R 278.01 OBESITY MORBID 06/26/2008 BELTRAN DO, JULIET K 278.01 OBESITY MORBID 06/26/2008 278.01 OBESITY MORBID 06/26/2008 RAHUL ZHU APRN R 278.01 OBESITY MORBID 06/26/2008 BELTRAN DO, JULIET K 278.01 OBESITY MORBID 06/26/2008 278.01 OBESITY MORBID 06/26/2008 278.01 OBESITY MORBID 06/26/2008 278.01 OBESITY MORBID 06/26/2008 BELTRAN DO, JULIET K 278.01 OBESITY MORBID 06/26/2008 SHANNON ZHU APRNIA R 278.01 OBESITY MORBID 06/26/2008 BELTRAN DO, JULIET K 278.01 OBESITY MORBID 06/26/2008 BELTRAN DO, JULIET K 278.01 OBESITY MORBID 06/26/2008 BELTRAN DO, JULIET K 278.01 OBESITY MORBID 06/26/2008 BELTRAN DO, JULIET K 278.01 OBESITY MORBID 06/26/2008 BELTRAN DO, JULIET K 278.01 OBESITY MORBID 06/26/2008 BELTRAN DO, JULIET K 278.01 OBESITY MORBID 06/26/2008 CHRIS STEVENSON MD N 278.01 OBESITY MORBID 06/26/2008 BELTRAN DO, JULIET K 278.01 OBESITY MORBID 06/26/2008 BELTRAN DO, JULIET K 278.01 OBESITY MORBID 06/26/2008 BELTRAN DO, JULIET K 278.01 OBESITY MORBID 06/26/2008 BELTRAN DO, JULIET K 278.01 OBESITY MORBID 06/26/2008 BELTRAN DO, JULIET K 278.01 OBESITY MORBID 06/26/2008 BELTRAN DO, JULIET K 278.01 OBESITY MORBID 06/26/2008 BELTRAN DO, JULIET K 278.01 OBESITY MORBID 06/26/2008 BELTRAN DO, JULIET K 278.01 OBESITY MORBID 06/26/2008 BELTRAN DO, JULIET K 278.01 OBESITY MORBID 06/26/2008 BELTRAN DO, JULIET K 278.01 OBESITY MORBID 06/26/2008 BELTRAN DO, JULIET K 278.01 OBESITY MORBID 06/26/2008 BELTRAN DO, JULIET K 278.01 OBESITY MORBID 06/26/2008 BELTRAN DO, JULIET K 278.01 OBESITY MORBID 06/26/2008 GRAHAM ESTRELLA, CHRIS N 278.01 OBESITY MORBID 06/26/2008 BELTRAN DO, JULIET K 278.01 OBESITY MORBID 06/26/2008 BELTRAN DO, JULIET K 278.01 OBESITY MORBID 06/26/2008 BELTRAN DO, JULIET K 278.01 OBESITY MORBID 06/26/2008 BELTRAN DO, JULIET K 278.01 OBESITY MORBID 06/26/2008 BELTRAN DO, JULIET K 278.01 OBESITY MORBID 06/26/2008 BELTRAN DO, JULIET K 278.01 OBESITY MORBID 06/26/2008 GRAHAM ESTRELLA, CHRIS N 278.01 OBESITY MORBID 06/26/2008 CHRIS STEVENSON MD N 278.01 OBESITY MORBID 06/26/2008 BELTRAN DO, JULIET K 278.01 OBESITY MORBID 06/26/2008 BELTRAN DO, JULIET K 278.01 OBESITY MORBID 06/26/2008 BELTRAN DO, JULIET K 278.01 OBESITY MORBID 06/26/2008 BELTRAN DO, JULIET K 278.01 OBESITY MORBID 06/26/2008 BELTRAN DO, JULIET K 278.01 OBESITY MORBID 06/26/2008 BELTRAN DO, JULIET K 278.01 OBESITY MORBID 06/26/2008 LUCA DPM, KELLE 278.01 OBESITY MORBID 06/26/2008 AUDRA LEASE BROKER, RAHUL R 278.01 OBESITY MORBID 06/26/2008 BELTRAN DO, JULIET K 278.01 OBESITY MORBID 06/26/2008 BELTRAN DO, JULIET K 278.01 OBESITY MORBID 06/26/2008 BELTRAN DO, JULIET K 278.01 OBESITY MORBID 06/26/2008 BELTRAN DO, JULIET K 278.01 OBESITY MORBID 06/26/2008 BELTRAN DO, JULIET K 278.01 OBESITY MORBID 06/26/2008 BELTRAN DO, JULIET K 278.01 OBESITY MORBID 06/26/2008 GRAHAM ESTRELLA, CHRIS N 278.01 OBESITY MORBID 06/26/2008 CHRIS STEVENSON MD N 278.01 OBESITY MORBID 06/26/2008 BELTRAN DO, JULIET K 278.01 OBESITY MORBID 06/26/2008 BELTRAN DO, JULIET K 278.01 OBESITY MORBID 06/26/2008 GRAHAM ESTRELLA, CHRIS N 278.01 OBESITY MORBID 06/26/2008 CHRIS STEVENSON MD N 278.01 OBESITY MORBID 06/26/2008 BELTRAN DO, JULIET K 278.01 OBESITY MORBID 06/26/2008 CHRIS STEVENSON MD N 278.01 OBESITY MORBID 06/26/2008 BELTRAN DO, JULIET K 278.01 OBESITY MORBID 07/11/2008 BELTRAN DO, JULIET K 716.90 ARTHROPATHY 07/11/2008 716.90 ARTHROPATHY 07/11/2008 716.90 ARTHROPATHY 07/11/2008 BRIDGETT AGUILERA APRN 716.90 ARTHROPATHY 07/11/2008 716.90 ARTHROPATHY 07/11/2008 716.90 ARTHROPATHY 07/11/2008 716.90 ARTHROPATHY 07/11/2008 716.90 ARTHROPATHY 07/11/2008 SHANNON ZHU APRNIA R 716.90 ARTHROPATHY 07/11/2008 BELTRAN DO, JULIET K 716.90 ARTHROPATHY 07/11/2008 716.90 ARTHROPATHY 07/11/2008 SHANNON ZHU APRNIA R 716.90 ARTHROPATHY 07/11/2008 BELTRAN DO, JULIET K 716.90 ARTHROPATHY 07/11/2008 716.90 ARTHROPATHY 07/11/2008 716.90 ARTHROPATHY 07/11/2008 716.90 ARTHROPATHY 07/11/2008 BELTRAN DO, JULIET K 716.90 ARTHROPATHY 07/11/2008 SHANNON ZHU APRNIA R 716.90 ARTHROPATHY 07/11/2008 BELTRAN DO, JULIET K 716.90 ARTHROPATHY 07/11/2008 BELTRAN DO, JULIET K 716.90 ARTHROPATHY 07/11/2008 BELTRAN DO, JULIET K 716.90 ARTHROPATHY 07/11/2008 BELTRAN DO, JULIET K 716.90 ARTHROPATHY 07/11/2008 BELTRAN DO, JULIET K 716.90 ARTHROPATHY 07/11/2008 BELTRAN DO, JULIET K 716.90 ARTHROPATHY 07/11/2008 CHRIS STEVENSON MD N 716.90 ARTHROPATHY 07/11/2008 BELTRAN DO, JULIET K 716.90 ARTHROPATHY 07/11/2008 BELTRAN DO, JULIET K 716.90 ARTHROPATHY 07/11/2008 BELTRAN DO, JULIET K 716.90 ARTHROPATHY 07/11/2008 BELTRAN DO, JULIET K 716.90 ARTHROPATHY 07/11/2008 BELTRAN DO, JULIET K 716.90 ARTHROPATHY 07/11/2008 BELTRAN DO, JULIET K 716.90 ARTHROPATHY 07/11/2008 BELTRAN DO, JULIET K 716.90 ARTHROPATHY 07/11/2008 BELTRAN DO, JULIET K 716.90 ARTHROPATHY 07/11/2008 BELTRAN DO, JULIET K 716.90 ARTHROPATHY 07/11/2008 BELTRAN DO, JULIET K 716.90 ARTHROPATHY 07/11/2008 BELTRAN DO, JULIET K 716.90 ARTHROPATHY 07/11/2008 BELTRAN DO, JULIET K 716.90 ARTHROPATHY 07/11/2008 BELTRAN DO, JULIET K 716.90 ARTHROPATHY 07/11/2008 CHRIS STEVENSON MD N 716.90 ARTHROPATHY 07/11/2008 BELTRAN DO, JULIET K 716.90 ARTHROPATHY 07/11/2008 BELTRAN DO, JULIET K 716.90 ARTHROPATHY 07/11/2008 BELTRAN DO, JULIET K 716.90 ARTHROPATHY 07/11/2008 BELTRAN DO, JULIET K 716.90 ARTHROPATHY 07/11/2008 BELTRAN DO, JULIET K 716.90 ARTHROPATHY 07/11/2008 BELTRAN DO, JULIET K 716.90 ARTHROPATHY 07/11/2008 CHRIS STEVENSON MD N 716.90 ARTHROPATHY 07/11/2008 CHRIS STEVENSON MD 716.90 ARTHROPATHY 07/11/2008 BELTRAN DO, JULIET K 716.90 ARTHROPATHY 07/11/2008 BELTRAN DO, JULIET K 716.90 ARTHROPATHY 07/11/2008 BELTRAN DO, JULIET K 716.90 ARTHROPATHY 07/11/2008 BELTRAN DO, JULIET K 716.90 ARTHROPATHY 07/11/2008 BELTRAN DO, JULIET K 716.90 ARTHROPATHY 07/11/2008 BELTRAN DO, JULIET K 716.90 ARTHROPATHY 07/11/2008 LUCA DPM, KELLE 716.90 ARTHROPATHY 07/11/2008 RAHUL ZHU APRN 716.90 ARTHROPATHY 07/11/2008 BELTRAN DO, JULIET K 716.90 ARTHROPATHY 07/11/2008 BELTRAN DO, JULIET K 716.90 ARTHROPATHY 07/11/2008 BELTRAN DO, JULIET K 716.90 ARTHROPATHY 07/11/2008 BELTRAN DO, JULIET K 716.90 ARTHROPATHY 07/11/2008 BELTRAN DO, JULIET K 716.90 ARTHROPATHY 07/11/2008 BELTRAN DO, JULIET K 716.90 ARTHROPATHY 07/11/2008 GRAHAM ESTRELLA, CHRIS N 716.90 ARTHROPATHY 07/11/2008 GRAHAM ESTRELLA, CHRIS N 716.90 ARTHROPATHY 07/11/2008 BELTRAN DO, JULIET K 716.90 ARTHROPATHY 07/11/2008 BELTRAN DO, JULIET K 716.90 ARTHROPATHY 07/11/2008 GRAHAM ESTRELLA, CHRIS N 716.90 ARTHROPATHY 07/11/2008 CHRIS STEVENSON MD N 716.90 ARTHROPATHY 07/11/2008 BELTRAN DO, JULIET K 716.90 ARTHROPATHY 07/11/2008 CHRIS STEVENSON MD N 716.90 ARTHROPATHY 07/11/2008 BELTRAN DO, JULIET K 716.90 ARTHROPATHY 08/11/2008 BELTRAN DO, JULIET K 789.00 ABDOMINAL PAIN UNSPECIFIED SITE 08/11/2008 789.00 ABDOMINAL PAIN UNSPECIFIED SITE 08/11/2008 789.00 ABDOMINAL PAIN UNSPECIFIED SITE 08/11/2008 BRIDGETT AGUILERA APRN 789.00 ABDOMINAL PAIN UNSPECIFIED SITE 08/11/2008 789.00 ABDOMINAL PAIN UNSPECIFIED SITE 08/11/2008 789.00 ABDOMINAL PAIN UNSPECIFIED SITE 08/11/2008 789.00 ABDOMINAL PAIN UNSPECIFIED SITE 08/11/2008 789.00 ABDOMINAL PAIN UNSPECIFIED SITE 08/11/2008 RAHUL ZHU APRN 789.00 ABDOMINAL PAIN UNSPECIFIED SITE 08/11/2008 BELTRAN DO, JULIET K 789.00 ABDOMINAL PAIN UNSPECIFIED SITE 08/11/2008 789.00 ABDOMINAL PAIN UNSPECIFIED SITE 08/11/2008 AUDRA DIAZSHANNONIA R 789.00 ABDOMINAL PAIN UNSPECIFIED SITE 08/11/2008 BELTRAN DO, JULIET K 789.00 ABDOMINAL PAIN UNSPECIFIED SITE 08/11/2008 789.00 ABDOMINAL PAIN UNSPECIFIED SITE 08/11/2008 789.00 ABDOMINAL PAIN UNSPECIFIED SITE 08/11/2008 789.00 ABDOMINAL PAIN UNSPECIFIED SITE 08/11/2008 BELTRAN DO, JULIET K 789.00 ABDOMINAL PAIN UNSPECIFIED SITE 08/11/2008 AUDRA DIAZ RAHUL R 789.00 ABDOMINAL PAIN UNSPECIFIED SITE 08/11/2008 BELTRAN DO, JULIET K 789.00 ABDOMINAL PAIN UNSPECIFIED SITE 08/11/2008 BELTRAN DO, JULIET K 789.00 ABDOMINAL PAIN UNSPECIFIED SITE 08/11/2008 BELTRAN DO, JULIET K 789.00 ABDOMINAL PAIN UNSPECIFIED SITE 08/11/2008 BELTRAN DO, JULIET K 789.00 ABDOMINAL PAIN UNSPECIFIED SITE 08/11/2008 BELTRAN DO, JULIET K 789.00 ABDOMINAL PAIN UNSPECIFIED SITE 08/11/2008 BELTRAN DO, JULIET K 789.00 ABDOMINAL PAIN UNSPECIFIED SITE 08/11/2008 GRAHAM ESTRELLA, CHRIS Steiner 789.00 ABDOMINAL PAIN UNSPECIFIED SITE 08/11/2008 BELTRAN DO, JULIET K 789.00 ABDOMINAL PAIN UNSPECIFIED SITE 08/11/2008 BELTRAN DO, JULIET K 789.00 ABDOMINAL PAIN UNSPECIFIED SITE 08/11/2008 BELTRAN DO, JULIET K 789.00 ABDOMINAL PAIN UNSPECIFIED SITE 08/11/2008 BELTRAN DO, JULIET K 789.00 ABDOMINAL PAIN UNSPECIFIED SITE 08/11/2008 BELTRAN DO, JULIET K 789.00 ABDOMINAL PAIN UNSPECIFIED SITE 08/11/2008 BELTRAN DO, JULIET K 789.00 ABDOMINAL PAIN UNSPECIFIED SITE 08/11/2008 BELTRAN DO, JULIET K 789.00 ABDOMINAL PAIN UNSPECIFIED SITE 08/11/2008 BELTRAN DO, JULIET K 789.00 ABDOMINAL PAIN UNSPECIFIED SITE 08/11/2008 BELTRAN DO, JULIET K 789.00 ABDOMINAL PAIN UNSPECIFIED SITE 08/11/2008 BELTRAN DO, JULIET K 789.00 ABDOMINAL PAIN UNSPECIFIED SITE 08/11/2008 BELTRAN DO, JULIET K 789.00 ABDOMINAL PAIN UNSPECIFIED SITE 08/11/2008 BELTRAN DO, JULIET K 789.00 ABDOMINAL PAIN UNSPECIFIED SITE 08/11/2008 BELTRAN DO, JULIET K 789.00 ABDOMINAL PAIN UNSPECIFIED SITE 08/11/2008 GRAHAM ESTRELLA, CHRIS Steiner 789.00 ABDOMINAL PAIN UNSPECIFIED SITE 08/11/2008 BELTRAN DO, JULIET K 789.00 ABDOMINAL PAIN UNSPECIFIED SITE 08/11/2008 BELTRAN DO, JULIET K 789.00 ABDOMINAL PAIN UNSPECIFIED SITE 08/11/2008 BELTRAN DO, JULIET K 789.00 ABDOMINAL PAIN UNSPECIFIED SITE 08/11/2008 BELTRAN DO, JULIET K 789.00 ABDOMINAL PAIN UNSPECIFIED SITE 08/11/2008 BELTRAN DO, JULIET K 789.00 ABDOMINAL PAIN UNSPECIFIED SITE 08/11/2008 BELTRAN DO, JULIET K 789.00 ABDOMINAL PAIN UNSPECIFIED SITE 08/11/2008 GRAHAM ESTRELLA, CHRIS Steiner 789.00 ABDOMINAL PAIN UNSPECIFIED SITE 08/11/2008 GRAHAM ESTRELLA, CHRIS Steiner 789.00 ABDOMINAL PAIN UNSPECIFIED SITE 08/11/2008 BELTRAN DO, JULIET K 789.00 ABDOMINAL PAIN UNSPECIFIED SITE 08/11/2008 BELTRAN DO, JULIET K 789.00 ABDOMINAL PAIN UNSPECIFIED SITE 08/11/2008 BELTRAN DO, JULIET K 789.00 ABDOMINAL PAIN UNSPECIFIED SITE 08/11/2008 BELTRAN DO, JULIET K 789.00 ABDOMINAL PAIN UNSPECIFIED SITE 08/11/2008 BELTRAN DO, JULIET K 789.00 ABDOMINAL PAIN UNSPECIFIED SITE 08/11/2008 BELTRAN DO, JULIET K 789.00 ABDOMINAL PAIN UNSPECIFIED SITE 08/11/2008 KELLE DIAZ DPM 789.00 ABDOMINAL PAIN UNSPECIFIED SITE 08/11/2008 RAHUL ZHU APRN R 789.00 ABDOMINAL PAIN UNSPECIFIED SITE 08/11/2008 BELTRAN DO, JULIET K 789.00 ABDOMINAL PAIN UNSPECIFIED SITE 08/11/2008 BELTRAN DO, JULIET K 789.00 ABDOMINAL PAIN UNSPECIFIED SITE 08/11/2008 BELTRAN DO, JULIET K 789.00 ABDOMINAL PAIN UNSPECIFIED SITE 08/11/2008 BELTRAN DO, JULIET K 789.00 ABDOMINAL PAIN UNSPECIFIED SITE 08/11/2008 BELTRAN DO, JULIET K 789.00 ABDOMINAL PAIN UNSPECIFIED SITE 08/11/2008 BELTRAN DO, JULIET K 789.00 ABDOMINAL PAIN UNSPECIFIED SITE 08/11/2008 CHRIS STEVENSON MD N 789.00 ABDOMINAL PAIN UNSPECIFIED SITE 08/11/2008 CHRIS STEVENSON MD N 789.00 ABDOMINAL PAIN UNSPECIFIED SITE 08/11/2008 JULIET BELTRAN DO K 789.00 ABDOMINAL PAIN UNSPECIFIED SITE 08/11/2008 JULIET BELTRAN DO K 789.00 ABDOMINAL PAIN UNSPECIFIED SITE 08/11/2008 CHRIS STEVENSON MD N 789.00 ABDOMINAL PAIN UNSPECIFIED SITE 08/11/2008 CHRIS STEVENSON MD N 789.00 ABDOMINAL PAIN UNSPECIFIED SITE 08/11/2008 JULIET BELTRAN DO K 789.00 ABDOMINAL PAIN UNSPECIFIED SITE 08/11/2008 CHRIS STEVENSON MD N 789.00 ABDOMINAL PAIN UNSPECIFIED SITE 08/11/2008 JULIET BELTRAN DO K 789.00 ABDOMINAL PAIN UNSPECIFIED SITE 04/18/2009 JULIET BELTRAN DO K 724.2 lower back pain 04/18/2009 JULIET BELTRAN DO K 729.2 RADICULOPATHY 04/18/2009 724.2 lower back pain 04/18/2009 729.2 RADICULOPATHY 04/18/2009 724.2 lower back pain 04/18/2009 729.2 RADICULOPATHY 04/18/2009 BRIDGETT AGUILERA APRN S 724.2 lower back pain 04/18/2009 BRIDGETT AGUILERA APRN S 729.2 RADICULOPATHY 04/18/2009 724.2 lower back pain 04/18/2009 729.2 RADICULOPATHY 04/18/2009 724.2 lower back pain 04/18/2009 729.2 RADICULOPATHY 04/18/2009 724.2 lower back pain 04/18/2009 729.2 RADICULOPATHY 04/18/2009 724.2 lower back pain 04/18/2009 729.2 RADICULOPATHY 04/18/2009 RAHUL ZHU APRN R 724.2 lower back pain 04/18/2009 RAHUL ZHU APRN 729.2 RADICULOPATHY 04/18/2009 BELTRAN JULIET WATTERS K 724.2 lower back pain 04/18/2009 BELTRAN DO, JULIET K 729.2 RADICULOPATHY 04/18/2009 724.2 lower back pain 04/18/2009 729.2 RADICULOPATHY 04/18/2009 AUDRA LEASE BROKERSHANNNOIA R 724.2 lower back pain 04/18/2009 ZHU LEASE BROKER, RAHUL R 729.2 RADICULOPATHY 04/18/2009 BELTRAN DO, JULIET K 724.2 lower back pain 04/18/2009 BELTRAN DO, JULIET K 729.2 RADICULOPATHY 04/18/2009 724.2 lower back pain 04/18/2009 729.2 RADICULOPATHY 04/18/2009 724.2 lower back pain 04/18/2009 729.2 RADICULOPATHY 04/18/2009 724.2 lower back pain 04/18/2009 729.2 RADICULOPATHY 04/18/2009 BELTRAN DO, JULIET K 724.2 lower back pain 04/18/2009 BELTRAN DO, JULIET K 729.2 RADICULOPATHY 04/18/2009 SHANNON ZHU APRNIA R 724.2 lower back pain 04/18/2009 ALFRED ZHU APRNRICIA R 729.2 RADICULOPATHY 04/18/2009 BELTRAN DO, JULIET K 724.2 lower back pain 04/18/2009 BELTRAN DO, JULIET K 729.2 RADICULOPATHY 04/18/2009 BELTRAN DO, JULIET K 724.2 lower back pain 04/18/2009 BELTRAN DO, JULIET K 729.2 RADICULOPATHY 04/18/2009 BELTRAN DO, JULIET K 724.2 lower back pain 04/18/2009 BELTRAN DO, JULIET K 729.2 RADICULOPATHY 04/18/2009 BELTRAN DO, JULIET K 724.2 lower back pain 04/18/2009 BELTRAN DO, JULIET K 729.2 RADICULOPATHY 04/18/2009 BELTRAN DO, JULIET K 724.2 lower back pain 04/18/2009 BELTRAN DO, JULIET K 729.2 RADICULOPATHY 04/18/2009 BELTRAN DO, JULIET K 724.2 lower back pain 04/18/2009 BELTRAN DO, JULIET K 729.2 RADICULOPATHY 04/18/2009 GRAHAM ESTRELLA, CHRIS N 724.2 lower back pain 04/18/2009 CHRIS STEVENSON MD N 729.2 RADICULOPATHY 04/18/2009 BELTRAN DO, JULIET K 724.2 lower back pain 04/18/2009 BELTRAN DO, JULIET K 729.2 RADICULOPATHY 04/18/2009 BELTRAN DO, JULIET K 724.2 lower back pain 04/18/2009 BELTRAN DO, JULIET K 729.2 RADICULOPATHY 04/18/2009 BELTRAN DO, JULIET K 724.2 lower back pain 04/18/2009 BELTRAN DO, JULIET K 729.2 RADICULOPATHY 04/18/2009 BELTRAN DO, JULIET K 724.2 lower back pain 04/18/2009 BELTRAN DO, JULIET K 729.2 RADICULOPATHY 04/18/2009 BELTRAN DO, JULIET K 724.2 lower back pain 04/18/2009 BELTRAN DO, JULIET K 729.2 RADICULOPATHY 04/18/2009 BELTRAN DO, JULIET K 724.2 lower back pain 04/18/2009 BELTRAN DO, JULIET K 729.2 RADICULOPATHY 04/18/2009 BELTRAN DO, JULIET K 724.2 lower back pain 04/18/2009 BELTRAN DO, JULIET K 729.2 RADICULOPATHY 04/18/2009 BELTRAN DO, JULIET K 724.2 lower back pain 04/18/2009 BELTRAN DO, JULIET K 729.2 RADICULOPATHY 04/18/2009 BELTRAN DO, JULIET K 724.2 lower back pain 04/18/2009 BELTRAN DO, JULIET K 729.2 RADICULOPATHY 04/18/2009 BELTRAN DO, JULIET K 724.2 lower back pain 04/18/2009 BELTRAN DO, JULIET K 729.2 RADICULOPATHY 04/18/2009 BELTRAN DO, JULIET K 724.2 lower back pain 04/18/2009 BELTRAN DO, JULIET K 729.2 RADICULOPATHY 04/18/2009 BELTRAN DO, JULIET K 724.2 lower back pain 04/18/2009 BELTRAN DO, JULIET K 729.2 RADICULOPATHY 04/18/2009 BELTRAN DO, JULIET K 724.2 lower back pain 04/18/2009 BELTRAN DO, JULIET K 729.2 RADICULOPATHY 04/18/2009 CHRIS STEVENSON MD N 724.2 lower back pain 04/18/2009 CHRIS STEVENSON MD N 729.2 RADICULOPATHY 04/18/2009 BELTRAN DO, JULIET K 724.2 lower back pain 04/18/2009 BELTRAN DO, JULIET K 729.2 RADICULOPATHY 04/18/2009 BELTRAN DO, JULIET K 724.2 lower back pain 04/18/2009 BELTRAN DO, JULIET K 729.2 RADICULOPATHY 04/18/2009 BELTRAN DO, JULIET K 724.2 lower back pain 04/18/2009 BELTRAN DO, JULIET K 729.2 RADICULOPATHY 04/18/2009 BELTRAN DO, JULIET K 724.2 lower back pain 04/18/2009 BELTRAN DO, JULIET K 729.2 RADICULOPATHY 04/18/2009 BELTRAN DO, JULIET K 724.2 lower back pain 04/18/2009 BELTRAN DO, JULIET K 729.2 RADICULOPATHY 04/18/2009 BELTRAN DO, JULIET K 724.2 lower back pain 04/18/2009 BELTRAN DO, JULIET K 729.2 RADICULOPATHY 04/18/2009 CHRIS STEVENSON MD N 724.2 lower back pain 04/18/2009 CHRIS STEVENSON MD N 729.2 RADICULOPATHY 04/18/2009 CHRIS STEVENSON MD N 724.2 lower back pain 04/18/2009 CHRIS STEVENSON MD N 729.2 RADICULOPATHY 04/18/2009 BELTRAN DO, JULIET K 724.2 lower back pain 04/18/2009 BELTRAN DO, JULIET K 729.2 RADICULOPATHY 04/18/2009 BELTRAN DO, JULIET K 724.2 lower back pain 04/18/2009 BELTRAN DO, JULIET K 729.2 RADICULOPATHY 04/18/2009 BELTRAN DO, JULIET K 724.2 lower back pain 04/18/2009 BELTRAN DO, JULIET K 729.2 RADICULOPATHY 04/18/2009 BELTRAN DO, JULIET K 724.2 lower back pain 04/18/2009 BELTRAN DO, JULIET K 729.2 RADICULOPATHY 04/18/2009 BELTRAN DO, JULIET K 724.2 lower back pain 04/18/2009 BELTRAN DO, JULIET K 729.2 RADICULOPATHY 04/18/2009 BELTRAN DO, JULIET K 724.2 lower back pain 04/18/2009 BELTRAN DO, JULIET K 729.2 RADICULOPATHY 04/18/2009 LUCA DPM, KELLE 724.2 lower back pain 04/18/2009 LUCA DPM, KELLE 729.2 RADICULOPATHY 04/18/2009 ZHU LEASE BROKER, RAHUL R 724.2 lower back pain 04/18/2009 ZHU LEASE BROKER, RAHUL R 729.2 RADICULOPATHY 04/18/2009 BELTRAN DO, JULIET K 724.2 lower back pain 04/18/2009 BELTRAN DO, JULIET K 729.2 RADICULOPATHY 04/18/2009 BELTRAN DO, JULIET K 724.2 lower back pain 04/18/2009 BELTRAN DO, JULIET K 729.2 RADICULOPATHY 04/18/2009 BELTRAN DO, JULIET K 724.2 lower back pain 04/18/2009 BELTRAN DO, JULIET K 729.2 RADICULOPATHY 04/18/2009 BELTRAN DO, JULIET K 724.2 lower back pain 04/18/2009 BELTRAN DO, JULIET K 729.2 RADICULOPATHY 04/18/2009 BELTRAN DO, JULIET K 724.2 lower back pain 04/18/2009 BELTRAN DO, JULIET K 729.2 RADICULOPATHY 04/18/2009 BELTRAN DO, JULIET K 724.2 lower back pain 04/18/2009 BELTRAN DO, JULIET K 729.2 RADICULOPATHY 04/18/2009 GRAHAM ESTRELLA, CHRIS Steiner 724.2 lower back pain 04/18/2009 CHRIS STEVENSON MD 729.2 RADICULOPATHY 04/18/2009 CHRIS STEVENSON MD N 724.2 lower back pain 04/18/2009 GRAHAM MD, CHRIS N 729.2 RADICULOPATHY 04/18/2009 BELTRAN DO JULIET K 724.2 lower back pain 04/18/2009 BELTRAN DO JULIET K 729.2 RADICULOPATHY 04/18/2009 BELTRAN DO JULIET K 724.2 lower back pain 04/18/2009 BELTRAN DO JULIET K 729.2 RADICULOPATHY 04/18/2009 CHRIS STEVENSON MD N 724.2 lower back pain 04/18/2009 CHRIS STEVENSON MD N 729.2 RADICULOPATHY 04/18/2009 CHRIS STEVENSON MD N 724.2 lower back pain 04/18/2009 CHRIS STEVENSON MD N 729.2 RADICULOPATHY 04/18/2009 BELTRAN JULIET WATTERS K 724.2 lower back pain 04/18/2009 BELTRAN DO JULIET K 729.2 RADICULOPATHY 04/18/2009 CHRIS STEVENSON MD N 724.2 lower back pain 04/18/2009 CHRIS STEVENSON MD N 729.2 RADICULOPATHY 04/18/2009 MARIBEL BELTRAN DOA K 724.2 lower back pain 04/18/2009 MARIBEL BELTRAN DOA K 729.2 RADICULOPATHY 05/01/2009 JULIET BELTRAN DO K 836.0 Acute Meniscal Tear Medial 05/01/2009 836.0 Acute Meniscal Tear Medial 05/01/2009 836.0 Acute Meniscal Tear Medial 05/01/2009 BRIDGETT AGUILERA APRN 836.0 Acute Meniscal Tear Medial 05/01/2009 836.0 Acute Meniscal Tear Medial 05/01/2009 836.0 Acute Meniscal Tear Medial 05/01/2009 836.0 Acute Meniscal Tear Medial 05/01/2009 836.0 Acute Meniscal Tear Medial 05/01/2009 RAHUL ZHU APRN R 836.0 Acute Meniscal Tear Medial 05/01/2009 JULIET BELTRAN DO K 836.0 Acute Meniscal Tear Medial 05/01/2009 836.0 Acute Meniscal Tear Medial 05/01/2009 RAHUL ZHU APRN R 836.0 Acute Meniscal Tear Medial 05/01/2009 JULIET BELTRAN DO K 836.0 Acute Meniscal Tear Medial 05/01/2009 836.0 Acute Meniscal Tear Medial 05/01/2009 836.0 Acute Meniscal Tear Medial 05/01/2009 836.0 Acute Meniscal Tear Medial 05/01/2009 BELTRAN DO, JULIET K 836.0 Acute Meniscal Tear Medial 05/01/2009 AUDRA DIAZ RAHUL R 836.0 Acute Meniscal Tear Medial 05/01/2009 BELTRAN DO, JULIET K 836.0 Acute Meniscal Tear Medial 05/01/2009 BELTRAN DO, JULIET K 836.0 Acute Meniscal Tear Medial 05/01/2009 BELTRAN DO, JULIET K 836.0 Acute Meniscal Tear Medial 05/01/2009 BELTRAN DO, JULIET K 836.0 Acute Meniscal Tear Medial 05/01/2009 BELTRAN DO, JULIET K 836.0 Acute Meniscal Tear Medial 05/01/2009 BELTRAN DO, JULIET K 836.0 Acute Meniscal Tear Medial 05/01/2009 GRAHAM ESTRELLA, CHRIS N 836.0 Acute Meniscal Tear Medial 05/01/2009 BELTRAN DO, JULIET K 836.0 Acute Meniscal Tear Medial 05/01/2009 BELTRAN DO, JULIET K 836.0 Acute Meniscal Tear Medial 05/01/2009 BELTRAN DO, JULIET K 836.0 Acute Meniscal Tear Medial 05/01/2009 BELTRAN DO, JULIET K 836.0 Acute Meniscal Tear Medial 05/01/2009 BELTRAN DO, JULIET K 836.0 Acute Meniscal Tear Medial 05/01/2009 BELTRAN DO, JULIET K 836.0 Acute Meniscal Tear Medial 05/01/2009 BELTRAN DO, JULIET K 836.0 Acute Meniscal Tear Medial 05/01/2009 BELTRAN DO, JULIET K 836.0 Acute Meniscal Tear Medial 05/01/2009 BELTRAN DO, JULIET K 836.0 Acute Meniscal Tear Medial 05/01/2009 BELTRAN DO, JULIET K 836.0 Acute Meniscal Tear Medial 05/01/2009 BELTRAN DO, JULIET K 836.0 Acute Meniscal Tear Medial 05/01/2009 BELTRAN DO, JULIET K 836.0 Acute Meniscal Tear Medial 05/01/2009 BELTRAN DO, JULIET K 836.0 Acute Meniscal Tear Medial 05/01/2009 GRAHAM ESTRELLA, CHRIS N 836.0 Acute Meniscal Tear Medial 05/01/2009 BELTRAN DO, JULIET K 836.0 Acute Meniscal Tear Medial 05/01/2009 BELTRAN DO, JULIET K 836.0 Acute Meniscal Tear Medial 05/01/2009 BELTRAN DO, JULIET K 836.0 Acute Meniscal Tear Medial 05/01/2009 BELTRAN DO, JULITE K 836.0 Acute Meniscal Tear Medial 05/01/2009 BELTRAN DO, JULIET K 836.0 Acute Meniscal Tear Medial 05/01/2009 BELTRAN DO, JULIET K 836.0 Acute Meniscal Tear Medial 05/01/2009 GRAHAM ESTRELLA, CHRIS N 836.0 Acute Meniscal Tear Medial 05/01/2009 GRAHAM ESTRELLA, CHRIS N 836.0 Acute Meniscal Tear Medial 05/01/2009 BELTRAN DO, JULIET K 836.0 Acute Meniscal Tear Medial 05/01/2009 BELTRAN DO, JULIET K 836.0 Acute Meniscal Tear Medial 05/01/2009 BELTRAN DO, JLUIET K 836.0 Acute Meniscal Tear Medial 05/01/2009 BELTRAN DO, JULIET K 836.0 Acute Meniscal Tear Medial 05/01/2009 BELTRAN DO, JULIET K 836.0 Acute Meniscal Tear Medial 05/01/2009 BELTRAN DO, JULIET K 836.0 Acute Meniscal Tear Medial 05/01/2009 LUCA DPM, KELLE 836.0 Acute Meniscal Tear Medial 05/01/2009 AUDRA LEASE BROKERRAHUL R 836.0 Acute Meniscal Tear Medial 05/01/2009 BELTRAN DO, JULIET K 836.0 Acute Meniscal Tear Medial 05/01/2009 BELTRAN DO, JULIET K 836.0 Acute Meniscal Tear Medial 05/01/2009 BELTRAN DO, JULIET K 836.0 Acute Meniscal Tear Medial 05/01/2009 BELTRAN DO, JULIET K 836.0 Acute Meniscal Tear Medial 05/01/2009 BELTRAN DO, JULIET K 836.0 Acute Meniscal Tear Medial 05/01/2009 BELTRAN DO, JULIET K 836.0 Acute Meniscal Tear Medial 05/01/2009 GRAHAM ESTRELLA, CHRIS N 836.0 Acute Meniscal Tear Medial 05/01/2009 GRAHAM ESTRELLA, CHRIS N 836.0 Acute Meniscal Tear Medial 05/01/2009 BELTRAN DO, JULIET K 836.0 Acute Meniscal Tear Medial 05/01/2009 BELTRAN DO, JULIET K 836.0 Acute Meniscal Tear Medial 05/01/2009 GRAHAM ESTRELLA, CHRIS N 836.0 Acute Meniscal Tear Medial 05/01/2009 CHRIS STEVENSON MD N 836.0 Acute Meniscal Tear Medial 05/01/2009 BELTRAN DO, JULIET K 836.0 Acute Meniscal Tear Medial 05/01/2009 CHRIS STEVENSON MD N 836.0 Acute Meniscal Tear Medial 05/01/2009 BELTRAN DO, JULIET K 836.0 Acute Meniscal Tear Medial 07/16/2009 BELTRAN DO, JULIET K 789.00 Abdominal Pain Unspecified Site 07/16/2009 789.00 Abdominal Pain Unspecified Site 07/16/2009 789.00 Abdominal Pain Unspecified Site 07/16/2009 BRIDGETT AGUILERA APRN 789.00 Abdominal Pain Unspecified Site 07/16/2009 789.00 Abdominal Pain Unspecified Site 07/16/2009 789.00 Abdominal Pain Unspecified Site 07/16/2009 789.00 Abdominal Pain Unspecified Site 07/16/2009 789.00 Abdominal Pain Unspecified Site 07/16/2009 RAHUL ZHU APRN 789.00 Abdominal Pain Unspecified Site 07/16/2009 BELTRAN DO, JULIET K 789.00 Abdominal Pain Unspecified Site 07/16/2009 789.00 Abdominal Pain Unspecified Site 07/16/2009 RAHUL ZHU APRN R 789.00 Abdominal Pain Unspecified Site 07/16/2009 BELTRAN DO, JULIET K 789.00 Abdominal Pain Unspecified Site 07/16/2009 789.00 Abdominal Pain Unspecified Site 07/16/2009 789.00 Abdominal Pain Unspecified Site 07/16/2009 789.00 Abdominal Pain Unspecified Site 07/16/2009 BELTRAN DO, JULIET K 789.00 Abdominal Pain Unspecified Site 07/16/2009 RAHUL ZHU APRN R 789.00 Abdominal Pain Unspecified Site 07/16/2009 BELTRAN DO, JULIET K 789.00 Abdominal Pain Unspecified Site 07/16/2009 BELTRAN DO, JULIET K 789.00 Abdominal Pain Unspecified Site 07/16/2009 BELTRAN DO, JULIET K 789.00 Abdominal Pain Unspecified Site 07/16/2009 BELTRAN DO, JULIET K 789.00 Abdominal Pain Unspecified Site 07/16/2009 BELTRAN DO, JULIET K 789.00 Abdominal Pain Unspecified Site 07/16/2009 BELTRAN DO, JULIET K 789.00 Abdominal Pain Unspecified Site 07/16/2009 CHRIS STEVENSON MD 789.00 Abdominal Pain Unspecified Site 07/16/2009 BELTRAN DO, JULIET K 789.00 Abdominal Pain Unspecified Site 07/16/2009 BELTRAN DO, JULIET K 789.00 Abdominal Pain Unspecified Site 07/16/2009 BELTRAN DO, JULIET K 789.00 Abdominal Pain Unspecified Site 07/16/2009 BELTRAN DO, JULIET K 789.00 Abdominal Pain Unspecified Site 07/16/2009 BELTRAN DO, JULIET K 789.00 Abdominal Pain Unspecified Site 07/16/2009 BELTRAN DO, JULIET K 789.00 Abdominal Pain Unspecified Site 07/16/2009 BELTRAN DO, JULIET K 789.00 Abdominal Pain Unspecified Site 07/16/2009 BELTRAN DO, JULIET K 789.00 Abdominal Pain Unspecified Site 07/16/2009 BELTRAN DO, JULIET K 789.00 Abdominal Pain Unspecified Site 07/16/2009 BELTRAN DO, JULIET K 789.00 Abdominal Pain Unspecified Site 07/16/2009 BELTRAN DO, JULIET K 789.00 Abdominal Pain Unspecified Site 07/16/2009 BELTRAN DO, JULIET K 789.00 Abdominal Pain Unspecified Site 07/16/2009 BELTRAN DO, JULIET K 789.00 Abdominal Pain Unspecified Site 07/16/2009 CHRIS STEVENSON MD 789.00 Abdominal Pain Unspecified Site 07/16/2009 BELTRAN DO, JULIET K 789.00 Abdominal Pain Unspecified Site 07/16/2009 BELTRAN DO, JULIET K 789.00 Abdominal Pain Unspecified Site 07/16/2009 BELTRAN DO, JULIET K 789.00 Abdominal Pain Unspecified Site 07/16/2009 BELTRAN DO, JULIET K 789.00 Abdominal Pain Unspecified Site 07/16/2009 BELTRAN DO, JULIET K 789.00 Abdominal Pain Unspecified Site 07/16/2009 BELTRAN DO, JULIET K 789.00 Abdominal Pain Unspecified Site 07/16/2009 CHRIS STEVENSON MD 789.00 Abdominal Pain Unspecified Site 07/16/2009 CHRIS STEVENSON MD 789.00 Abdominal Pain Unspecified Site 07/16/2009 BELTRAN DO, JULIET K 789.00 Abdominal Pain Unspecified Site 07/16/2009 BELTRAN DO, JULIET K 789.00 Abdominal Pain Unspecified Site 07/16/2009 BELTRAN DO, JULIET K 789.00 Abdominal Pain Unspecified Site 07/16/2009 BELTRAN DO, JULIET K 789.00 Abdominal Pain Unspecified Site 07/16/2009 BELTRAN DO, JULIET K 789.00 Abdominal Pain Unspecified Site 07/16/2009 BELTRAN DO, JULIET K 789.00 Abdominal Pain Unspecified Site 07/16/2009 LUCA DPM, KELLE 789.00 Abdominal Pain Unspecified Site 07/16/2009 AUDRA LEASE BROKER RAHUL R 789.00 Abdominal Pain Unspecified Site 07/16/2009 BELTRAN DO, JULIET K 789.00 Abdominal Pain Unspecified Site 07/16/2009 BELTRAN DO, JULIET K 789.00 Abdominal Pain Unspecified Site 07/16/2009 BELTRAN DO, JULIET K 789.00 Abdominal Pain Unspecified Site 07/16/2009 BELTRAN DO, JULIET K 789.00 Abdominal Pain Unspecified Site 07/16/2009 BELTRAN DO, JULIET K 789.00 Abdominal Pain Unspecified Site 07/16/2009 BELTRAN DO, JULIET K 789.00 Abdominal Pain Unspecified Site 07/16/2009 CHRIS STEVENSON MD 789.00 Abdominal Pain Unspecified Site 07/16/2009 CHRIS STEVENSON MD 789.00 Abdominal Pain Unspecified Site 07/16/2009 BELTRAN DO, JULIET K 789.00 Abdominal Pain Unspecified Site 07/16/2009 BELTRAN DO, JULIET K 789.00 Abdominal Pain Unspecified Site 07/16/2009 CHRIS STEVENSON MD N 789.00 Abdominal Pain Unspecified Site 07/16/2009 CHRIS STEVENSON MD 789.00 Abdominal Pain Unspecified Site 07/16/2009 BELTRAN DO, JULEIT K 789.00 Abdominal Pain Unspecified Site 07/16/2009 CHRIS STEVENSON MD 789.00 Abdominal Pain Unspecified Site 07/16/2009 BELTRAN DO, JULIET K 789.00 Abdominal Pain Unspecified Site 08/21/2009 BELTRAN DO, JULIET K 458.0 Orthostatic Hypotension 08/21/2009 458.0 Orthostatic Hypotension 08/21/2009 458.0 Orthostatic Hypotension 08/21/2009 BRIDGETT AGUILERA APRN S 458.0 Orthostatic Hypotension 08/21/2009 458.0 Orthostatic Hypotension 08/21/2009 458.0 Orthostatic Hypotension 08/21/2009 458.0 Orthostatic Hypotension 08/21/2009 458.0 Orthostatic Hypotension 08/21/2009 AUDRA DIAZ, RAHUL R 458.0 Orthostatic Hypotension 08/21/2009 BELTRAN DO, JULIET K 458.0 Orthostatic Hypotension 08/21/2009 458.0 Orthostatic Hypotension 08/21/2009 AUDRA DIAZ, RAHUL R 458.0 Orthostatic Hypotension 08/21/2009 BELTRAN DO, JULIET K 458.0 Orthostatic Hypotension 08/21/2009 458.0 Orthostatic Hypotension 08/21/2009 458.0 Orthostatic Hypotension 08/21/2009 458.0 Orthostatic Hypotension 08/21/2009 BELTRAN DO, JULIET K 458.0 Orthostatic Hypotension 08/21/2009 ALFRED ZHU APRNRICIA R 458.0 Orthostatic Hypotension 08/21/2009 BELTRAN DO, JULIET K 458.0 Orthostatic Hypotension 08/21/2009 BELTRAN DO, JULIET K 458.0 Orthostatic Hypotension 08/21/2009 BELTRAN DO, JULIET K 458.0 Orthostatic Hypotension 08/21/2009 BELTRAN DO, JULIET K 458.0 Orthostatic Hypotension 08/21/2009 BELTRAN DO, JULIET K 458.0 Orthostatic Hypotension 08/21/2009 BELTRAN DO, JULIET K 458.0 Orthostatic Hypotension 08/21/2009 GRAHAM ESTRELLA, CHRIS N 458.0 Orthostatic Hypotension 08/21/2009 BELTRAN DO, JULIET K 458.0 Orthostatic Hypotension 08/21/2009 BELTRAN DO, JULIET K 458.0 Orthostatic Hypotension 08/21/2009 BELTRAN DO, JULIET K 458.0 Orthostatic Hypotension 08/21/2009 BELTRAN DO, JULIET K 458.0 Orthostatic Hypotension 08/21/2009 BELTRAN DO, JULIET K 458.0 Orthostatic Hypotension 08/21/2009 BELTRAN DO, JULIET K 458.0 Orthostatic Hypotension 08/21/2009 BELTRAN DO, JULIET K 458.0 Orthostatic Hypotension 08/21/2009 BELTRAN DO, JULIET K 458.0 Orthostatic Hypotension 08/21/2009 BELTRAN DO, JULIET K 458.0 Orthostatic Hypotension 08/21/2009 BELTRAN DO, JULIET K 458.0 Orthostatic Hypotension 08/21/2009 BELTRAN DO, JULIET K 458.0 Orthostatic Hypotension 08/21/2009 BELTRAN DO, JULIET K 458.0 Orthostatic Hypotension 08/21/2009 BELTRAN DO, JULIET K 458.0 Orthostatic Hypotension 08/21/2009 CHRIS STEVENSON MD N 458.0 Orthostatic Hypotension 08/21/2009 BELTRAN DO, JULIET K 458.0 Orthostatic Hypotension 08/21/2009 BELTRAN DO, JULIET K 458.0 Orthostatic Hypotension 08/21/2009 BELTRAN DO, JULIET K 458.0 Orthostatic Hypotension 08/21/2009 BELTRAN DO, JULIET K 458.0 Orthostatic Hypotension 08/21/2009 BELTRAN DO, JULIET K 458.0 Orthostatic Hypotension 08/21/2009 BELTRAN DO, JULIET K 458.0 Orthostatic Hypotension 08/21/2009 CHRIS STEVENSON MD 458.0 Orthostatic Hypotension 08/21/2009 CHRIS STEVENSON MD N 458.0 Orthostatic Hypotension 08/21/2009 BELTRAN DO, JULIET K 458.0 Orthostatic Hypotension 08/21/2009 BELTRAN DO, JULIET K 458.0 Orthostatic Hypotension 08/21/2009 BELTRAN DO, JULIET K 458.0 Orthostatic Hypotension 08/21/2009 BELTRAN DO, JULIET K 458.0 Orthostatic Hypotension 08/21/2009 BELTRAN DO, JULIET K 458.0 Orthostatic Hypotension 08/21/2009 BELTRAN DO, JULIET K 458.0 Orthostatic Hypotension 08/21/2009 LUCA DPM, KELLE 458.0 Orthostatic Hypotension 08/21/2009 AUDRA LEASE BROKER, RAHUL R 458.0 Orthostatic Hypotension 08/21/2009 BELTRAN DO, JULIET K 458.0 Orthostatic Hypotension 08/21/2009 BELTRAN DO, JULIET K 458.0 Orthostatic Hypotension 08/21/2009 BELTRAN DO, JULIET K 458.0 Orthostatic Hypotension 08/21/2009 BELTRAN DO, JULIET K 458.0 Orthostatic Hypotension 08/21/2009 BELTRAN DO, JULIET K 458.0 Orthostatic Hypotension 08/21/2009 BELTRAN DO, JULIET K 458.0 Orthostatic Hypotension 08/21/2009 CHRIS STEVENSON MD N 458.0 Orthostatic Hypotension 08/21/2009 CHRIS STEVENSON MD N 458.0 Orthostatic Hypotension 08/21/2009 BELTRAN DO, JULIET K 458.0 Orthostatic Hypotension 08/21/2009 BELTRAN DO, JULIET K 458.0 Orthostatic Hypotension 08/21/2009 CHRIS STEVENSON MD 458.0 Orthostatic Hypotension 08/21/2009 CHRIS STEVENSON MD 458.0 Orthostatic Hypotension 08/21/2009 BELTRAN DO, JULIET K 458.0 Orthostatic Hypotension 08/21/2009 CHRIS STEVENSON MD 458.0 Orthostatic Hypotension 08/21/2009 BELTRAN DO, JULIET K 458.0 Orthostatic Hypotension 08/28/2009 BELTRAN DO, JULIET K 728.87 muscle weakness 08/28/2009 BELTRAN DO, JULIET K 781.0 Tremor 08/28/2009 728.87 muscle weakness 08/28/2009 781.0 Tremor 08/28/2009 728.87 muscle weakness 08/28/2009 781.0 Tremor 08/28/2009 BRIDGETT AGUILERA APRN S 728.87 muscle weakness 08/28/2009 BRIDGETT AGUILERA APRN S 781.0 Tremor 08/28/2009 728.87 Muscle Weakness 08/28/2009 781.0 Tremor 08/28/2009 728.87 Muscle Weakness 08/28/2009 781.0 Tremor 08/28/2009 728.87 Muscle Weakness 08/28/2009 781.0 Tremor 08/28/2009 728.87 Muscle Weakness 08/28/2009 781.0 Tremor 08/28/2009 AUDRA LEASE BROKERALFREDRAHUL R 728.87 Muscle Weakness 08/28/2009 AUDRA ZAMORANALFREDRAHUL R 781.0 Tremor 08/28/2009 BELTRAN DO, JULIET K 728.87 Muscle Weakness 08/28/2009 BELTRAN DO, JULIET K 781.0 Tremor 08/28/2009 728.87 Muscle Weakness 08/28/2009 781.0 Tremor 08/28/2009 AUDRA LEASE BROKER, RAHUL R 728.87 Muscle Weakness 08/28/2009 AUDRA LEASE BROKER, RAHUL R 781.0 Tremor 08/28/2009 BELTRAN DO, JULIET K 728.87 Muscle Weakness 08/28/2009 BELTRAN DO, JULIET K 781.0 Tremor 08/28/2009 728.87 Muscle Weakness 08/28/2009 781.0 Tremor 08/28/2009 728.87 Muscle Weakness 08/28/2009 781.0 Tremor 08/28/2009 728.87 Muscle Weakness 08/28/2009 781.0 Tremor 08/28/2009 BELTRAN DO, JULIET K 728.87 Muscle Weakness 08/28/2009 BELTRAN DO, JULIET K 781.0 Tremor 08/28/2009 ZHU LEASE BROKER, RAHUL R 728.87 Muscle Weakness 08/28/2009 ZHU LEASE BROKER, RAHUL R 781.0 Tremor 08/28/2009 BELTRAN DO, JULIET K 728.87 Muscle Weakness 08/28/2009 BELTRAN DO, JULIET K 781.0 Tremor 08/28/2009 BELTRAN DO, JULIET K 728.87 Muscle Weakness 08/28/2009 BELTRAN DO, JULIET K 781.0 Tremor 08/28/2009 BELTRAN DO, JULIET K 728.87 Muscle Weakness 08/28/2009 BELTRAN DO, JULIET K 781.0 Tremor 08/28/2009 BELTRAN DO, JULIET K 728.87 Muscle Weakness 08/28/2009 BELTRAN DO, JULIET K 781.0 Tremor 08/28/2009 BELTRAN DO, JULIET K 728.87 Muscle Weakness 08/28/2009 BELTRAN DO, JULIET K 781.0 Tremor 08/28/2009 BELTRAN DO, JULIET K 728.87 Muscle Weakness 08/28/2009 BELTRAN DO, JULIET K 781.0 Tremor 08/28/2009 GRAHAM ESTRELLA, CHRIS N 728.87 Muscle Weakness 08/28/2009 CHRIS STEVENSON MD N 781.0 Tremor 08/28/2009 BELTRAN DO, JULIET K 728.87 Muscle Weakness 08/28/2009 BELTRAN DO, JULIET K 781.0 Tremor 08/28/2009 BELTRAN DO, JULIET K 728.87 Muscle Weakness 08/28/2009 BELTRAN DO, JULIET K 781.0 Tremor 08/28/2009 BELTRAN DO, JULIET K 728.87 Muscle Weakness 08/28/2009 BELTRAN DO, JULIET K 781.0 Tremor 08/28/2009 BELTRAN DO, JULIET K 728.87 Muscle Weakness 08/28/2009 BELTRAN DO, JULIET K 781.0 Tremor 08/28/2009 BELTRAN DO, JULIET K 728.87 Muscle Weakness 08/28/2009 BELTRAN DO, JULIET K 781.0 Tremor 08/28/2009 BELTRAN DO, JULIET K 728.87 Muscle Weakness 08/28/2009 BELTRAN DO, JULIET K 781.0 Tremor 08/28/2009 BELTRAN DO, JULIET K 728.87 Muscle Weakness 08/28/2009 BELTRAN DO, JULIET K 781.0 Tremor 08/28/2009 BELTRAN DO, JULIET K 728.87 Muscle Weakness 08/28/2009 BELTRAN DO, JULIET K 781.0 Tremor 08/28/2009 BELTRAN DO, JULIET K 728.87 Muscle Weakness 08/28/2009 BELTRAN DO, JULIET K 781.0 Tremor 08/28/2009 BELTRAN DO, JULIET K 728.87 Muscle Weakness 08/28/2009 BELTRAN DO, JULIET K 781.0 Tremor 08/28/2009 BELTRAN DO, JULIET K 728.87 Muscle Weakness 08/28/2009 BELTRAN DO, JULIET K 781.0 Tremor 08/28/2009 BELTRAN DO, JULIET K 728.87 Muscle Weakness 08/28/2009 BELTRAN DO, JULIET K 781.0 Tremor 08/28/2009 BELTRAN DO, JULIET K 728.87 Muscle Weakness 08/28/2009 BELTRAN DO, JULIET K 781.0 Tremor 08/28/2009 CHRIS STEVENSON MD N 728.87 Muscle Weakness 08/28/2009 CHRIS STEVENSON MD N 781.0 Tremor 08/28/2009 BELTRAN DO, JULIET K 728.87 Muscle Weakness 08/28/2009 BELTRAN DO, JULIET K 781.0 Tremor 08/28/2009 BELTRAN DO, JULIET K 728.87 Muscle Weakness 08/28/2009 BELTRAN DO, JULIET K 781.0 Tremor 08/28/2009 BELTRAN DO, JULIET K 728.87 Muscle Weakness 08/28/2009 BELTRAN DO, JULIET K 781.0 Tremor 08/28/2009 BELTRAN DO, JULIET K 728.87 Muscle Weakness 08/28/2009 BELTRAN DO, JULIET K 781.0 Tremor 08/28/2009 BELTRAN DO, JULIET K 728.87 Muscle Weakness 08/28/2009 BELTRAN DO, JULIET K 781.0 Tremor 08/28/2009 BELTRAN DO, JULIET K 728.87 Muscle Weakness 08/28/2009 BELTRAN DO, JULIET K 781.0 Tremor 08/28/2009 GRAHAM ESTRELLA, CHRIS N 728.87 Muscle Weakness 08/28/2009 GRAHAM ESTRELLA, CHRIS N 781.0 Tremor 08/28/2009 GRAHAM ESTRELLA, CHRIS N 728.87 Muscle Weakness 08/28/2009 GRAHAM ESTRELLA, CHRIS N 781.0 Tremor 08/28/2009 BELTRAN DO, JULIET K 728.87 Muscle Weakness 08/28/2009 BELTRAN DO, JULIET K 781.0 Tremor 08/28/2009 BELTRAN DO, JULIET K 728.87 Muscle Weakness 08/28/2009 BELTRAN DO, JULIET K 781.0 Tremor 08/28/2009 BELTRAN DO, JULIET K 728.87 Muscle Weakness 08/28/2009 BELTRAN DO, JULIET K 781.0 Tremor 08/28/2009 BELTRAN DO, JULIET K 728.87 Muscle Weakness 08/28/2009 BELTRAN DO, JULIET K 781.0 Tremor 08/28/2009 BELTRAN DO, JULIET K 728.87 Muscle Weakness 08/28/2009 BELTRAN DO, JULIET K 781.0 Tremor 08/28/2009 BELTRAN DO, JULIET K 728.87 Muscle Weakness 08/28/2009 BELTRAN DO, JULIET K 781.0 Tremor 08/28/2009 LUCA DPM, KELLE 728.87 Muscle Weakness 08/28/2009 LUCA DPM, KELLE 781.0 Tremor 08/28/2009 ZHU LEASE BROKER, RAHUL R 728.87 Muscle Weakness 08/28/2009 ZHU LEASE BROKER, RAHUL R 781.0 Tremor 08/28/2009 BELTRAN DO, JULIET K 728.87 Muscle Weakness 08/28/2009 BELTRAN DO, JULIET K 781.0 Tremor 08/28/2009 BELTRAN DO, JULIET K 728.87 Muscle Weakness 08/28/2009 BELTRAN DO, JULIET K 781.0 Tremor 08/28/2009 BELTRAN DO, JULIET K 728.87 Muscle Weakness 08/28/2009 BELTRAN DO, JULIET K 781.0 Tremor 08/28/2009 BELTRAN DO, JULIET K 728.87 Muscle Weakness 08/28/2009 BELTRAN DO, JULIET K 781.0 Tremor 08/28/2009 BELTRAN DO, JULIET K 728.87 Muscle Weakness 08/28/2009 BELTRAN DO, JULIET K 781.0 Tremor 08/28/2009 BELTRAN DO, JULIET K 728.87 Muscle Weakness 08/28/2009 BELTRAN DO, JULIET K 781.0 Tremor 08/28/2009 CHRIS STEVENSON MD N 728.87 Muscle Weakness 08/28/2009 CHRIS STEVENSON MD N 781.0 Tremor 08/28/2009 CHRIS STEVENSON MD N 728.87 Muscle Weakness 08/28/2009 GRAHAM ESTRELLA CHRIS N 781.0 Tremor 08/28/2009 BELTRAN DO, JULIET K 728.87 Muscle Weakness 08/28/2009 BELTRAN DO, JULIET K 781.0 Tremor 08/28/2009 BELTRAN DO, JULIET K 728.87 Muscle Weakness 08/28/2009 BELTRAN DO, JULIET K 781.0 Tremor 08/28/2009 CHRIS STEVENSON MD N 728.87 Muscle Weakness 08/28/2009 CHRIS STEVENSON MD N 781.0 Tremor 08/28/2009 GRAHAM ESTRELLA CHRIS N 728.87 Muscle Weakness 08/28/2009 GRAHAM ESTRELLA CHRIS N 781.0 Tremor 08/28/2009 BELTRAN DO, JULIET K 728.87 Muscle Weakness 08/28/2009 BELTRAN , JULIET K 781.0 Tremor 08/28/2009 CHRIS STEVENSON MD N 728.87 Muscle Weakness 08/28/2009 CHRIS STEVENSON MD N 781.0 Tremor 08/28/2009 BELTRAN DO, JULIET K 728.87 Muscle Weakness 08/28/2009 BELTRAN DO, JULIET K 781.0 Tremor 10/03/2009 BELTRAN DO JULIET K 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 10/03/2009 BRIDGETT AGUILERA APRN 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 10/03/2009 RAHUL ZHU APRN R 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 10/03/2009 BELTRAN DO, JULIET K 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 10/03/2009 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 10/03/2009 RAHUL ZHU APRN R 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 10/03/2009 BELTRAN DO, JULIET K 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 10/03/2009 BELTRAN DO, JULIET K 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 10/03/2009 RAHUL ZHU APRN R 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 10/03/2009 BELTRAN DO, JULIET K 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 10/03/2009 BELTRAN DO, JULIET K 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 10/03/2009 BELTRAN DO, JULIET K 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 10/03/2009 BELTRAN DO, JULIET K 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 10/03/2009 BELTRAN DO, JULIET K 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 10/03/2009 BELTRAN DO, JULIET K 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 10/03/2009 GRAHAM ESTRELLA, CHRIS Steiner 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 10/03/2009 BELTRAN DO, JULIET K 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 10/03/2009 BELTRAN DO, JULIET K 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 10/03/2009 BELTRAN DO, JULIET K 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 10/03/2009 BELTRAN DO, JULIET K 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 10/03/2009 BELTRAN DO, JULIET K 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 10/03/2009 BELTRAN DO, JULIET K 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 10/03/2009 BELTRAN DO, JULIET K 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 10/03/2009 BELTRAN DO, JULIET K 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 10/03/2009 BELTRAN DO, JULIET K 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 10/03/2009 BELTRAN DO, JULIET K 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 10/03/2009 BELTRAN DO, JULIET K 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 10/03/2009 BELTRAN DO, JULIET K 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 10/03/2009 BELTRAN DO, JULIET K 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 10/03/2009 CHRIS STEVENSON MD N 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 10/03/2009 BELTRAN DO, JULIET K 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 10/03/2009 BELTRAN DO, JULIET K 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 10/03/2009 BELTRAN DO, JULIET K 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 10/03/2009 BELTRAN DO, JULIET K 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 10/03/2009 BELTRAN DO, JULIET K 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 10/03/2009 BELTRAN DO, JULIET K 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 10/03/2009 CHRIS STEVENSON MD N 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 10/03/2009 GRAHAM ESTRELLA, CHRIS N 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 10/03/2009 BELTRAN DO, JULIET K 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 10/03/2009 BELTRAN DO, JULIET K 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 10/03/2009 BELTRAN DO, JULIET K 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 10/03/2009 BELTRAN DO, JULIET K 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 10/03/2009 BELTRAN DO, JULIET K 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 10/03/2009 BELTRAN DO, JULIET K 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 10/03/2009 KELLE DIAZ DPM 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 10/03/2009 RAHUL ZHU APRN 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 10/03/2009 BELTRAN DO, JULIET K 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 10/03/2009 BELTRAN DO, JULIET K 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 10/03/2009 BELTRAN DO, JULIET K 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 10/03/2009 BELTRAN DO, JULIET K 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 10/03/2009 JULIET BELTRAN DO K 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 10/03/2009 JULIET BELTRAN DO K 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 10/03/2009 CHRIS STEVENSON MD 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 10/03/2009 CHRIS STEVENSON MD 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 10/03/2009 JULIET BELTRAN DO K 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 10/03/2009 JULIET BELTRAN DO K 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 10/03/2009 CHRIS STEVENSON MD N 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 10/03/2009 CHRIS STEVENSON MD N 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 10/03/2009 JULIET BELTRAN DO K 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 10/03/2009 CHRIS STEVENSON MD 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 10/03/2009 JULIET BELTRAN DO K 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 10/22/2009 JULIET BELTRAN DO K 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 10/22/2009 JULIET BELTRAN DO K 792.1 Change In The Stool Color 10/22/2009 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 10/22/2009 792.1 Change In The Stool Color 10/22/2009 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 10/22/2009 BELTRAN DO, JULIET K 792.1 Change In The Stool Color 10/22/2009 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 10/22/2009 792.1 Change In The Stool Color 10/22/2009 SHANNON ZHU APRNIA R 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 10/22/2009 SHANNON ZHU APRNIA R 792.1 Change In The Stool Color 10/22/2009 BELTRAN DO, JULIET K 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 10/22/2009 BELTRAN DO, JULIET K 792.1 Change In The Stool Color 10/22/2009 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 10/22/2009 792.1 Change In The Stool Color 10/22/2009 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 10/22/2009 792.1 Change In The Stool Color 10/22/2009 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 10/22/2009 792.1 Change In The Stool Color 10/22/2009 BELTRAN DO, JULIET K 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 10/22/2009 BELTRAN DO, JULIET K 792.1 Change In The Stool Color 10/22/2009 SHANNON ZHU APRNIA R 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 10/22/2009 SHANNON ZHU APRNIA R 792.1 Change In The Stool Color 10/22/2009 BELTRAN DO, JULIET K 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 10/22/2009 BELTRAN DO, JULIET K 792.1 Change In The Stool Color 10/22/2009 BELTRAN DO, JULIET K 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 10/22/2009 BELTRAN DO, JULIET K 792.1 Change In The Stool Color 10/22/2009 BELTRAN DO, JULIET K 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 10/22/2009 BELTRAN DO, JULIET K 792.1 Change In The Stool Color 10/22/2009 BELTRAN DO, JULIET K 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 10/22/2009 BELTRAN DO, JULIET K 792.1 Change In The Stool Color 10/22/2009 BELTRAN DO, JULIET K 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 10/22/2009 BELTRAN DO, JULIET K 792.1 Change In The Stool Color 10/22/2009 BELTRAN DO, JULIET K 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 10/22/2009 BELTRAN DO, JULIET K 792.1 Change In The Stool Color 10/22/2009 CHRIS STEVENSON MD N 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 10/22/2009 CHRIS STEVENSON MD N 792.1 Change In The Stool Color 10/22/2009 BELTRAN DO, JULIET K 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 10/22/2009 BELTRAN DO, JULIET K 792.1 Change In The Stool Color 10/22/2009 BELTRAN DO, JULIET K 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 10/22/2009 BELTRAN DO, JULIET K 792.1 Change In The Stool Color 10/22/2009 BELTRAN DO, JULIET K 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 10/22/2009 BELTRAN DO, JULIET K 792.1 Change In The Stool Color 10/22/2009 BELTRAN DO, JULIET K 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 10/22/2009 BELTRAN DO, JULIET K 792.1 Change In The Stool Color 10/22/2009 BELTRAN DO, JULIET K 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 10/22/2009 BELTRAN DO, JULIET K 792.1 Change In The Stool Color 10/22/2009 BELTRAN DO, JULIET K 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 10/22/2009 BELTRAN DO, JULIET K 792.1 Change In The Stool Color 10/22/2009 BELTRAN DO, JULIET K 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 10/22/2009 BELTRAN DO, JULIET K 792.1 Change In The Stool Color 10/22/2009 BELTRAN DO, JULIET K 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 10/22/2009 BELTRAN DO, JULIET K 792.1 Change In The Stool Color 10/22/2009 BELTRAN DO, JULIET K 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 10/22/2009 BELTRAN DO, JULIET K 792.1 Change In The Stool Color 10/22/2009 BELTRAN DO, JULIET K 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 10/22/2009 BELTRAN DO, JULIET K 792.1 Change In The Stool Color 10/22/2009 BELTRNA DO, JULIET K 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 10/22/2009 BELTRAN DO, JULIET K 792.1 Change In The Stool Color 10/22/2009 BELTRAN DO, JULIET K 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 10/22/2009 BELTRAN DO, JULIET K 792.1 Change In The Stool Color 10/22/2009 BELTRAN DO, JULIET K 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 10/22/2009 BELTRAN DO, JULIET K 792.1 Change In The Stool Color 10/22/2009 CHRIS STEVENSON MD N 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 10/22/2009 CHRIS STEVENSON MD N 792.1 Change In The Stool Color 10/22/2009 BELTRAN DO, JULIET K 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 10/22/2009 BELTRAN DO, JULIET K 792.1 Change In The Stool Color 10/22/2009 BELTRAN DO, JULIET K 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 10/22/2009 BELTRAN DO, JULIET K 792.1 Change In The Stool Color 10/22/2009 BELTRAN DO, JULIET K 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 10/22/2009 BELTRAN DO, JULIET K 792.1 Change In The Stool Color 10/22/2009 BELTRAN DO, JULIET K 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 10/22/2009 BELTRAN DO, JULIET K 792.1 Change In The Stool Color 10/22/2009 BELTRAN DO, JULIET K 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 10/22/2009 BELTRAN DO, JULIET K 792.1 Change In The Stool Color 10/22/2009 BELTRAN DO, JULIET K 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 10/22/2009 BELTRAN DO, JULIET K 792.1 Change In The Stool Color 10/22/2009 CHRIS STEVENSON MD N 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 10/22/2009 CHRIS STEVENSON MD N 792.1 Change In The Stool Color 10/22/2009 CHRIS STEVENSON MD N 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 10/22/2009 CHRIS STEVENSON MD N 792.1 Change In The Stool Color 10/22/2009 BELTRAN DO, JULIET K 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 10/22/2009 BELTRAN DO, JULIET K 792.1 Change In The Stool Color 10/22/2009 BELTRAN DO, JULIET K 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 10/22/2009 BELTRAN DO, JULIET K 792.1 Change In The Stool Color 10/22/2009 BELTRAN DO, JULIET K 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 10/22/2009 BELTRAN DO, JULIET K 792.1 Change In The Stool Color 10/22/2009 BELTRAN DO, JULIET K 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 10/22/2009 BELTRAN DO, JULIET K 792.1 Change In The Stool Color 10/22/2009 BELTRAN DO, JULIET K 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 10/22/2009 BELTRAN DO, JULIET K 792.1 Change In The Stool Color 10/22/2009 BELTRAN DO, JULIET K 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 10/22/2009 BELTRAN DO, JULIET K 792.1 Change In The Stool Color 10/22/2009 LUCA DPM, KELLE 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 10/22/2009 LUCA DPM, KELLE 792.1 Change In The Stool Color 10/22/2009 RAHUL ZHU APRN R 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 10/22/2009 RAHUL ZHU APRN R 792.1 Change In The Stool Color 10/22/2009 BELTRAN DO, JULIET K 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 10/22/2009 BELTRAN DO, JULIET K 792.1 Change In The Stool Color 10/22/2009 BELTRAN DO, JULIET K 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 10/22/2009 BELTRAN DO, JULIET K 792.1 Change In The Stool Color 10/22/2009 BELTRAN DO, JULIET K 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 10/22/2009 BELTRAN DO, JULIET K 792.1 Change In The Stool Color 10/22/2009 BELTRAN DO, JULIET K 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 10/22/2009 BELTRAN DO, JULIET K 792.1 Change In The Stool Color 10/22/2009 BELTRAN DO, JULIET K 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 10/22/2009 BELTRAN DO, JULIET K 792.1 Change In The Stool Color 10/22/2009 BELTRAN DO, JULIET K 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 10/22/2009 BELTRAN DO, JULIET K 792.1 Change In The Stool Color 10/22/2009 CHRIS STEVENSON MD N 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 10/22/2009 CHRIS STEVENSON MD N 792.1 Change In The Stool Color 10/22/2009 CHRIS STEVENSON MD N 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 10/22/2009 CHRIS STEVENSON MD N 792.1 Change In The Stool Color 10/22/2009 BELTRAN DO JULIET K 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 10/22/2009 BELTRAN DO, JULIET K 792.1 Change In The Stool Color 10/22/2009 BELTRAN DO JULIET K 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 10/22/2009 BELTRAN DO JULIET K 792.1 Change In The Stool Color 10/22/2009 CHRIS STEVENSON MD N 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 10/22/2009 CHRIS STEVENSON MD N 792.1 Change In The Stool Color 10/22/2009 CHRIS STEVENSON MD N 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 10/22/2009 CHRIS STEVENSON MD N 792.1 Change In The Stool Color 10/22/2009 DEVIN DO JULIET K 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 10/22/2009 BELTRAN DO, JULIET K 792.1 Change In The Stool Color 10/22/2009 CHRIS STEVENSON MD N 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 10/22/2009 CHRIS STEVENSON MD N 792.1 Change In The Stool Color 10/22/2009 BELTRAN DO JULIET K 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 10/22/2009 BELTRAN DO, JULIET K 792.1 Change In The Stool Color 11/02/2009 BELTRAN DO JULIET K 783.21 recent weight loss (___ lbs) [reported] 11/02/2009 783.21 recent weight loss (___ lbs) [reported] 11/02/2009 783.21 recent weight loss (___ lbs) [reported] 11/02/2009 BRIDGETT AGUILERA APRN 783.21 recent weight loss (___ lbs) [ reported] 11/02/2009 783.21 Recent Weight Loss (___ Lbs) [reported] 11/02/2009 783.21 Recent Weight Loss (___ Lbs) [reported] 11/02/2009 783.21 Recent Weight Loss (___ Lbs) [reported] 11/02/2009 783.21 Recent Weight Loss (___ Lbs) [reported] 11/02/2009 RAHUL ZHU APRN 783.21 Recent Weight Loss (___ Lbs) [ reported] 11/02/2009 JULIET BELTRAN DO 783.21 Recent Weight Loss (___ Lbs) [reported] 11/02/2009 783.21 Recent Weight Loss (___ Lbs) [reported] 11/02/2009 RAHUL ZHU APRN 783.21 Recent Weight Loss (___ Lbs) [ reported] 11/02/2009 JULIET BELTRAN DO 783.21 Recent Weight Loss (___ Lbs) [reported] 11/02/2009 783.21 Recent Weight Loss (___ Lbs) [reported] 11/02/2009 783.21 Recent Weight Loss (___ Lbs) [reported] 11/02/2009 783.21 Recent Weight Loss (___ Lbs) [reported] 11/02/2009 JULIET BELTRAN DO 783.21 Recent Weight Loss (___ Lbs) [reported] 11/02/2009 RAHUL ZHU APRN 783.21 Recent Weight Loss (___ Lbs) [ reported] 11/02/2009 MARIBEL BELTRAN DOA K 783.21 Recent Weight Loss (___ Lbs) [reported] 11/02/2009 MARIBEL BELTRAN DOA K 783.21 Recent Weight Loss (___ Lbs) [reported] 11/02/2009 MARIBEL BELTRAN DOA K 783.21 Recent Weight Loss (___ Lbs) [reported] 11/02/2009 MARIBEL BELTRAN DOA K 783.21 Recent Weight Loss (___ Lbs) [reported] 11/02/2009 MARIBEL BELTRAN DOA K 783.21 Recent Weight Loss (___ Lbs) [reported] 11/02/2009 BELTRAN DO JULIET K 783.21 Recent Weight Loss (___ Lbs) [reported] 11/02/2009 CHRIS STEEVNSON MD 783.21 Recent Weight Loss (___ Lbs) [reported] 11/02/2009 BELTRAN DO JULIET K 783.21 Recent Weight Loss (___ Lbs) [reported] 11/02/2009 BELTRAN DO JULIET K 783.21 Recent Weight Loss (___ Lbs) [reported] 11/02/2009 BELTRAN DO JULIET K 783.21 Recent Weight Loss (___ Lbs) [reported] 11/02/2009 BELTRAN DO JULIET K 783.21 Recent Weight Loss (___ Lbs) [reported] 11/02/2009 BELTRAN DO JULIET K 783.21 Recent Weight Loss (___ Lbs) [reported] 11/02/2009 BELTRAN DO JULIET K 783.21 Recent Weight Loss (___ Lbs) [reported] 11/02/2009 BELTRAN DO JULIET K 783.21 Recent Weight Loss (___ Lbs) [reported] 11/02/2009 BELTRAN DO JULIET K 783.21 Recent Weight Loss (___ Lbs) [reported] 11/02/2009 BELTRAN DO JULIET K 783.21 Recent Weight Loss (___ Lbs) [reported] 11/02/2009 BELTRAN DO JULIET K 783.21 Recent Weight Loss (___ Lbs) [reported] 11/02/2009 BELTRAN DO JULIET K 783.21 Recent Weight Loss (___ Lbs) [reported] 11/02/2009 BELTRAN DO JULIET K 783.21 Recent Weight Loss (___ Lbs) [reported] 11/02/2009 BELTRAN DO JULIET K 783.21 Recent Weight Loss (___ Lbs) [reported] 11/02/2009 CHRIS STEVENSON MD 783.21 Recent Weight Loss (___ Lbs) [reported] 11/02/2009 BELTRAN DO JULIET K 783.21 Recent Weight Loss (___ Lbs) [reported] 11/02/2009 BELTRAN DO JULIET K 783.21 Recent Weight Loss (___ Lbs) [reported] 11/02/2009 BELTRAN DO JULIET K 783.21 Recent Weight Loss (___ Lbs) [reported] 11/02/2009 BELTRAN DO JULIET K 783.21 Recent Weight Loss (___ Lbs) [reported] 11/02/2009 BELTRAN DO JULIET K 783.21 Recent Weight Loss (___ Lbs) [reported] 11/02/2009 BELTRAN DO JULIET K 783.21 Recent Weight Loss (___ Lbs) [reported] 11/02/2009 CHRIS STEVENSON MD N 783.21 Recent Weight Loss (___ Lbs) [reported] 11/02/2009 CHRIS STEVENSON MD N 783.21 Recent Weight Loss (___ Lbs) [reported] 11/02/2009 MARIBEL BELTRAN DOA K 783.21 Recent Weight Loss (___ Lbs) [reported] 11/02/2009 MARIBEL BELTRAN DOA K 783.21 Recent Weight Loss (___ Lbs) [reported] 11/02/2009 BELTRAN DO JULIET K 783.21 Recent Weight Loss (___ Lbs) [reported] 11/02/2009 BELTRAN DO JULIET K 783.21 Recent Weight Loss (___ Lbs) [reported] 11/02/2009 BELTRAN DO JULIET K 783.21 Recent Weight Loss (___ Lbs) [reported] 11/02/2009 BELTRAN DO JULIET K 783.21 Recent Weight Loss (___ Lbs) [reported] 11/02/2009 KELLE DIAZ DPM 783.21 Recent Weight Loss (___ Lbs) [reported] 11/02/2009 RAHUL ZHU APRN 783.21 Recent Weight Loss (___ Lbs) [ reported] 11/02/2009 BELTRAN DO JULIET K 783.21 Recent Weight Loss (___ Lbs) [reported] 11/02/2009 BELTRAN DO JULIET K 783.21 Recent Weight Loss (___ Lbs) [reported] 11/02/2009 BELTRAN DO JULIET K 783.21 Recent Weight Loss (___ Lbs) [reported] 11/02/2009 JULIET BELTRAN DO 783.21 Recent Weight Loss (___ Lbs) [reported] 11/02/2009 JULIET BELTRAN DO 783.21 Recent Weight Loss (___ Lbs) [reported] 11/02/2009 JULIET BELTRAN DO 783.21 Recent Weight Loss (___ Lbs) [reported] 11/02/2009 CHRIS STEVENSON MD 783.21 Recent Weight Loss (___ Lbs) [reported] 11/02/2009 CHRIS STEVENSON MD 783.21 Recent Weight Loss (___ Lbs) [reported] 11/02/2009 JULIET BELTRAN DO 783.21 Recent Weight Loss (___ Lbs) [reported] 11/02/2009 JULIET BELTRAN DO 783.21 Recent Weight Loss (___ Lbs) [reported] 11/02/2009 CHRIS STEVENSON MD 783.21 Recent Weight Loss (___ Lbs) [reported] 11/02/2009 CHRIS STEVENSON MD 783.21 Recent Weight Loss (___ Lbs) [reported] 11/02/2009 JULIET BELTRAN DO 783.21 Recent Weight Loss (___ Lbs) [reported] 11/02/2009 CHRIS STEVENSON MD N 783.21 Recent Weight Loss (___ Lbs) [reported] 11/02/2009 JULIET BELTRAN DO 783.21 Recent Weight Loss (___ Lbs) [reported] 11/12/2009 JULIET BELTRAN DO 724.5 BACKACHE UNSPECIFIED 11/12/2009 724.5 BACKACHE UNSPECIFIED 11/12/2009 724.5 BACKACHE UNSPECIFIED 11/12/2009 BRIDGETT AGUILERA APRN 724.5 BACKACHE UNSPECIFIED 11/12/2009 724.5 Backache Unspecified 11/12/2009 724.5 Backache Unspecified 11/12/2009 724.5 Backache Unspecified 11/12/2009 724.5 Backache Unspecified 11/12/2009 RAHUL ZHU APRN 724.5 Backache Unspecified 11/12/2009 BELTRAN DO, JULIET K 724.5 Backache Unspecified 11/12/2009 724.5 Backache Unspecified 11/12/2009 RAHUL ZHU APRN R 724.5 Backache Unspecified 11/12/2009 BELTRAN DO, JULIET K 724.5 Backache Unspecified 11/12/2009 724.5 Backache Unspecified 11/12/2009 724.5 Backache Unspecified 11/12/2009 724.5 Backache Unspecified 11/12/2009 BELTRAN DO, JULIET K 724.5 Backache Unspecified 11/12/2009 RAHUL ZHU APRN R 724.5 Backache Unspecified 11/12/2009 BELTRAN DO, JULIET K 724.5 Backache Unspecified 11/12/2009 BELTRAN DO, JULIET K 724.5 Backache Unspecified 11/12/2009 BELTRAN DO, JULIET K 724.5 Backache Unspecified 11/12/2009 BELTRAN DO, JULIET K 724.5 Backache Unspecified 11/12/2009 BELTRAN DO, JULIET K 724.5 Backache Unspecified 11/12/2009 BELTRAN DO, JULIET K 724.5 Backache Unspecified 11/12/2009 GRAHAM ESTRELLA, CHRIS Steiner 724.5 Backache Unspecified 11/12/2009 BELTRAN DO, JULIET K 724.5 Backache Unspecified 11/12/2009 BELTRAN DO, JULIET K 724.5 Backache Unspecified 11/12/2009 BELTRAN DO, JULIET K 724.5 Backache Unspecified 11/12/2009 BELTRAN DO, JULIET K 724.5 Backache Unspecified 11/12/2009 BELTRAN DO, JULIET K 724.5 Backache Unspecified 11/12/2009 BELTRAN DO, JULIET K 724.5 Backache Unspecified 11/12/2009 BELTRAN DO, JULIET K 724.5 Backache Unspecified 11/12/2009 BELTRAN DO, JULIET K 724.5 Backache Unspecified 11/12/2009 BELTRAN DO, JULIET K 724.5 Backache Unspecified 11/12/2009 BELTRAN DO, JULIET K 724.5 Backache Unspecified 11/12/2009 BELTRAN DO, JULIET K 724.5 Backache Unspecified 11/12/2009 BELTRAN DO, JULIET K 724.5 Backache Unspecified 11/12/2009 BELTRAN DO, JULIET K 724.5 Backache Unspecified 11/12/2009 CHRIS STEVENSON MD 724.5 Backache Unspecified 11/12/2009 BELTRAN DO, JULIET K 724.5 Backache Unspecified 11/12/2009 BELTRAN DO, JULIET K 724.5 Backache Unspecified 11/12/2009 BELTRAN DO, JULIET K 724.5 Backache Unspecified 11/12/2009 BELTRAN DO, JULIET K 724.5 Backache Unspecified 11/12/2009 BELTRAN DO, JULIET K 724.5 Backache Unspecified 11/12/2009 BELTRAN DO, JULIET K 724.5 Backache Unspecified 11/12/2009 CHRIS STEVENSON MD 724.5 Backache Unspecified 11/12/2009 CHRIS STEVENSON MD 724.5 Backache Unspecified 11/12/2009 BELTRAN DO, JULIET K 724.5 Backache Unspecified 11/12/2009 BELTRAN DO, JULIET K 724.5 Backache Unspecified 11/12/2009 BELTRAN DO, JULIET K 724.5 Backache Unspecified 11/12/2009 BELTRAN DO, JULIET K 724.5 Backache Unspecified 11/12/2009 BELTRAN DO, JULIET K 724.5 Backache Unspecified 11/12/2009 BELTRAN DO, JULIET K 724.5 Backache Unspecified 11/12/2009 LUCA DPM, KELLE 724.5 Backache Unspecified 11/12/2009 RAHUL ZHU APRN 724.5 Backache Unspecified 11/12/2009 BELTRAN DO, JULIET K 724.5 Backache Unspecified 11/12/2009 BELTRAN DO, JULIET K 724.5 Backache Unspecified 11/12/2009 BELTRAN DO, JULIET K 724.5 Backache Unspecified 11/12/2009 BELTRAN DO, JULIET K 724.5 Backache Unspecified 11/12/2009 BELTRAN DO, JULIET K 724.5 Backache Unspecified 11/12/2009 BELTRAN DO, JULIET K 724.5 Backache Unspecified 11/12/2009 CHRIS STEVENSON MD 724.5 Backache Unspecified 11/12/2009 CHRIS STEVENSON MD 724.5 Backache Unspecified 11/12/2009 BELTRAN DO JULIET K 724.5 Backache Unspecified 11/12/2009 BELTRAN DO JULIET K 724.5 Backache Unspecified 11/12/2009 CHRIS STEVENSON MD N 724.5 Backache Unspecified 11/12/2009 CHRIS STEVENSON MD N 724.5 Backache Unspecified 11/12/2009 BELTRAN DO JULIET K 724.5 Backache Unspecified 11/12/2009 CHRIS STEVENSON MD N 724.5 Backache Unspecified 11/12/2009 JULIET BELTRAN DO K 724.5 Backache Unspecified 11/20/2009 Ot 211.3 11/20/2009 Ot 530.11 11/20/2009 Ot 535.40 11/20/2009 Ot 569.3 11/20/2009 Ot V16.0 03/07/2010 Ot 787.91 03/11/2010 BELTRAN DO JULIET K 780.79 FATIGUE 03/11/2010 780.79 FATIGUE 03/11/2010 780.79 FATIGUE 03/11/2010 BRIDGETT AGUILERA APRN 780.79 FATIGUE 03/11/2010 780.79 FATIGUE 03/11/2010 780.79 FATIGUE 03/11/2010 780.79 FATIGUE 03/11/2010 780.79 FATIGUE 03/11/2010 RAHUL ZHU APRN 780.79 FATIGUE 03/11/2010 BELTRAN DO JULIET K 780.79 FATIGUE 03/11/2010 780.79 FATIGUE 03/11/2010 RAHUL ZHU APRN 780.79 FATIGUE 03/11/2010 BELTRAN DO JULIET K 780.79 FATIGUE 03/11/2010 780.79 FATIGUE 03/11/2010 780.79 FATIGUE 03/11/2010 780.79 FATIGUE 03/11/2010 BELTRAN DO, JULIET K 780.79 FATIGUE 03/11/2010 RAHUL ZHU APRN 780.79 FATIGUE 03/11/2010 BELTRAN DO, JULIET K 780.79 FATIGUE 03/11/2010 BELTRAN DO, JULIET K 780.79 FATIGUE 03/11/2010 BELTRAN DO, JULIET K 780.79 FATIGUE 03/11/2010 BELTRAN DO JULIET K 780.79 FATIGUE 03/11/2010 BELTRAN DO, JULIET K 780.79 FATIGUE 03/11/2010 BELTRAN DO, JULIET K 780.79 FATIGUE 03/11/2010 CHRIS STEVENSON MD 780.79 FATIGUE 03/11/2010 BELTRAN DO, JULIET K 780.79 FATIGUE 03/11/2010 BELTRAN DO, JULIET K 780.79 FATIGUE 03/11/2010 BELTARN DO, JULIET K 780.79 FATIGUE 03/11/2010 BELTRAN DO, JULIET K 780.79 FATIGUE 03/11/2010 BELTRAN DO, JULIET K 780.79 FATIGUE 03/11/2010 BELTRAN DO, JULIET K 780.79 FATIGUE 03/11/2010 BELTRAN DO, JULIET K 780.79 FATIGUE 03/11/2010 BELTRAN DO, JULIET K 780.79 FATIGUE 03/11/2010 BELTRAN DO, JULIET K 780.79 FATIGUE 03/11/2010 BELTRAN DO, JULIET K 780.79 FATIGUE 03/11/2010 BELTRAN DO, JULIET K 780.79 FATIGUE 03/11/2010 BELTRAN DO, JULIET K 780.79 FATIGUE 03/11/2010 BELTRAN DO, JULIET K 780.79 FATIGUE 03/11/2010 CHRIS STEVENSON MD 780.79 FATIGUE 03/11/2010 BELTRAN DO, JULIET K 780.79 FATIGUE 03/11/2010 BELTRAN DO, JULIET K 780.79 FATIGUE 03/11/2010 BELTRAN DO, JULIET K 780.79 FATIGUE 03/11/2010 BELTRAN DO, JULIET K 780.79 FATIGUE 03/11/2010 BELTRAN DO, JULIET K 780.79 FATIGUE 03/11/2010 BELTRAN DO, JULIET K 780.79 FATIGUE 03/11/2010 CHRIS STEVENSON MD 780.79 FATIGUE 03/11/2010 CHRIS STEVENSON MD 780.79 FATIGUE 03/11/2010 BELTRAN DO, JULIET K 780.79 FATIGUE 03/11/2010 BELTRAN DO, JULIET K 780.79 FATIGUE 03/11/2010 BELTRAN DO, JULIET K 780.79 FATIGUE 03/11/2010 BELTRAN DO, JULIET K 780.79 FATIGUE 03/11/2010 BELTRAN DO, JULIET K 780.79 FATIGUE 03/11/2010 BELTRAN DO, JULIET K 780.79 FATIGUE 03/11/2010 LUAC DPM, KELLE 780.79 FATIGUE 03/11/2010 RAHUL ZHU APRN 780.79 FATIGUE 03/11/2010 BELTRAN DO, JULIET K 780.79 FATIGUE 03/11/2010 BELTRAN DO, JULIET K 780.79 FATIGUE 03/11/2010 BELTRAN DO, JULIET K 780.79 FATIGUE 03/11/2010 BELTRAN DO, JULIET K 780.79 FATIGUE 03/11/2010 BELTRAN DO, JULIET K 780.79 FATIGUE 03/11/2010 BELTRAN DO, JULIET K 780.79 FATIGUE 03/11/2010 CHRIS STEVENSON MD 780.79 FATIGUE 03/11/2010 CHRIS STEVENSON MD 780.79 FATIGUE 03/11/2010 BELTRAN DO, JULIET K 780.79 FATIGUE 03/11/2010 BELTRAN DO, JULIET K 780.79 FATIGUE 03/11/2010 CHRIS STEVENSON MD 780.79 FATIGUE 03/11/2010 CHRIS STEVENSON MD 780.79 FATIGUE 03/11/2010 BELTRAN DO, JULIET K 780.79 FATIGUE 03/11/2010 CHRIS STEVENSON MD 780.79 FATIGUE 03/11/2010 BELTRAN DO, JULIET K 780.79 FATIGUE 06/07/2010 BELTRAN DOJULIET 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's Disease 06/07/2010 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's Disease 06/07/2010 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's Disease 06/07/2010 BRIDGETT AGUILERA APRN 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's Disease 06/07/2010 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's Disease 06/07/2010 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's Disease 06/07/2010 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's Disease 06/07/2010 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's Disease 06/07/2010 RAHUL ZHU APRN 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's Disease 06/07/2010 BELTRAN DOJULIET 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's Disease 06/07/2010 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's Disease 06/07/2010 RAHUL ZHU APRN 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's Disease 06/07/2010 BELTRAN JULIET WATTERS 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's Disease 06/07/2010 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's Disease 06/07/2010 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's Disease 06/07/2010 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's Disease 06/07/2010 BELTRAN DO, JULIET K 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's Disease 06/07/2010 RAHUL ZHU APRN 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's Disease 06/07/2010 BELTRAN DO, JULIET K 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's Disease 06/07/2010 BELTRAN DO, JULIET K 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's Disease 06/07/2010 BELTRAN DO, JULIET K 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's Disease 06/07/2010 BELTRAN DO, JULIET K 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's Disease 06/07/2010 BELTRAN DO, JULIET K 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's Disease 06/07/2010 BELTRAN DO, JULIET K 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's Disease 06/07/2010 CHRIS STEVENSON MD 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's Disease 06/07/2010 BELTRAN DO, JULIET K 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's Disease 06/07/2010 BELTRAN DO, JULIET K 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's Disease 06/07/2010 BELTRAN DO, JULIET K 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's Disease 06/07/2010 BELTRAN DO, JULIET K 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's Disease 06/07/2010 BELTRAN DO, JULIET K 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's Disease 06/07/2010 BELTRAN DO, JULIET K 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's Disease 06/07/2010 BELTRAN DO, JULIET K 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's Disease 06/07/2010 BELTRAN DO, JULIET K 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's Disease 06/07/2010 BELTRAN DO, JULIET K 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's Disease 06/07/2010 BELTRAN DO, JULIET K 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's Disease 06/07/2010 BELTRAN DO, JULIET K 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's Disease 06/07/2010 BELTRAN DO, JULIET K 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's Disease 06/07/2010 BELTRAN DO, JULIET K 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's Disease 06/07/2010 CHRIS STEVENSON MD 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's Disease 06/07/2010 BELTRAN DO, JULIET K 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's Disease 06/07/2010 BELTRAN DO, JULIET K 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's Disease 06/07/2010 BELTRAN DO, JULIET K 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's Disease 06/07/2010 BELTRAN DO, JULIET K 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's Disease 06/07/2010 BELTRAN DO, JULIET K 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's Disease 06/07/2010 BELTRAN DO, JULIET K 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's Disease 06/07/2010 GRAHAM ESTRELLA, CHRIS Steiner 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's Disease 06/07/2010 GRAHAM ESTRELLA, CHRIS Steiner 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's Disease 06/07/2010 BELTRAN DO, JULIET K 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's Disease 06/07/2010 BELTRAN DO, JULIET K 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's Disease 06/07/2010 BELTRAN DO, JULIET K 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's Disease 06/07/2010 BELTRAN DO, JULIET K 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's Disease 06/07/2010 BELTRAN DO, JULIET K 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's Disease 06/07/2010 BELTRAN DO, JULIET K 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's Disease 06/07/2010 LUCA DPM, KELLE 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's Disease 06/07/2010 RAHUL ZHU APRN 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's Disease 06/07/2010 BELTRAN DO, JULIET K 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's Disease 06/07/2010 BELTRAN DO, JULIET K 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's Disease 06/07/2010 BELTRAN DO, JULIET K 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's Disease 06/07/2010 BELTRAN DO, JULIET K 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's Disease 06/07/2010 BELTRAN DO, JULIET K 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's Disease 06/07/2010 BELTRAN DO, JULIET K 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's Disease 06/07/2010 GRAHAM ESTRELLA, CHRIS Steiner 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's Disease 06/07/2010 CHRIS STEVENSON MD N 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's Disease 06/07/2010 BELTRAN DO JULIET K 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's Disease 06/07/2010 DEVIN WATTERS JULIET K 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's Disease 06/07/2010 CHRIS STEVENSON MD N 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's Disease 06/07/2010 CHRIS STEVENSON MD N 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's Disease 06/07/2010 JULIET BELTRAN DO K 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's Disease 06/07/2010 CHRIS STEVENSON MD N 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's Disease 06/07/2010 MARIBEL BELTRAN DOA K 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's Disease 10/16/2010 DEVIN WATTERS JULIET K 272.1 HYPERTRIGLYCERIDEMIA 10/16/2010 DEVIN WATTERS JULIET K 274.9 GOUT 10/16/2010 272.1 HYPERTRIGLYCERIDEMIA 10/16/2010 274.9 GOUT 10/16/2010 272.1 HYPERTRIGLYCERIDEMIA 10/16/2010 274.9 GOUT 10/16/2010 SHERON AGUILERA APRNNDA S 272.1 HYPERTRIGLYCERIDEMIA 10/16/2010 WILLY DIAZ BRIDGETT S 274.9 GOUT 10/16/2010 272.1 HYPERTRIGLYCERIDEMIA 10/16/2010 274.9 GOUT 10/16/2010 272.1 HYPERTRIGLYCERIDEMIA 10/16/2010 274.9 GOUT 10/16/2010 272.1 HYPERTRIGLYCERIDEMIA 10/16/2010 274.9 GOUT 10/16/2010 272.1 HYPERTRIGLYCERIDEMIA 10/16/2010 274.9 GOUT 10/16/2010 ALFRED ZHU APRNRICIA R 272.1 HYPERTRIGLYCERIDEMIA 10/16/2010 AUDRA DIAZ RAHUL R 274.9 GOUT 10/16/2010 BELTRAN DO JULIET K 272.1 HYPERTRIGLYCERIDEMIA 10/16/2010 BELTRAN DO JULIET K 274.9 GOUT 10/16/2010 272.1 HYPERTRIGLYCERIDEMIA 10/16/2010 274.9 GOUT 10/16/2010 AUDRA DIAZ RAHUL R 272.1 HYPERTRIGLYCERIDEMIA 10/16/2010 AUDRA DIAZ RAHUL R 274.9 GOUT 10/16/2010 BELTRAN DO JULIET K 272.1 HYPERTRIGLYCERIDEMIA 10/16/2010 DEVIN WATTERS JULIET K 274.9 GOUT 10/16/2010 272.1 HYPERTRIGLYCERIDEMIA 10/16/2010 274.9 GOUT 10/16/2010 272.1 HYPERTRIGLYCERIDEMIA 10/16/2010 274.9 GOUT 10/16/2010 272.1 HYPERTRIGLYCERIDEMIA 10/16/2010 274.9 GOUT 10/16/2010 BELTRAN DO, JULIET K 272.1 HYPERTRIGLYCERIDEMIA 10/16/2010 BELTRAN DO, JULIET K 274.9 GOUT 10/16/2010 ZHU LEASE BROKER, RAHUL R 272.1 HYPERTRIGLYCERIDEMIA 10/16/2010 ZHU LEASE BROKER, RAHUL R 274.9 GOUT 10/16/2010 BELTRAN DO, JULIET K 272.1 HYPERTRIGLYCERIDEMIA 10/16/2010 BELTRAN DO, JULIET K 274.9 GOUT 10/16/2010 BELTRAN DO, JULIET K 272.1 HYPERTRIGLYCERIDEMIA 10/16/2010 BELTRAN DO, JULIET K 274.9 GOUT 10/16/2010 BELTRAN DO, JULIET K 272.1 HYPERTRIGLYCERIDEMIA 10/16/2010 BELTRAN DO, JULIET K 274.9 GOUT 10/16/2010 BELTRAN DO, JULIET K 272.1 HYPERTRIGLYCERIDEMIA 10/16/2010 BELTRAN DO, JULIET K 274.9 GOUT 10/16/2010 BELTRAN DO, JULIET K 272.1 HYPERTRIGLYCERIDEMIA 10/16/2010 BELTRAN DO, JULIET K 274.9 GOUT 10/16/2010 BELTRAN DO, JULIET K 272.1 HYPERTRIGLYCERIDEMIA 10/16/2010 BELTRAN DO, JULIET K 274.9 GOUT 10/16/2010 GRAHAM ESTRELLA, CHRIS N 272.1 HYPERTRIGLYCERIDEMIA 10/16/2010 CHRIS STEVENSON MD N 274.9 GOUT 10/16/2010 BELTRAN DO, JULIET K 272.1 HYPERTRIGLYCERIDEMIA 10/16/2010 BELTRAN DO, JULIET K 274.9 GOUT 10/16/2010 BELTRAN DO, JULIET K 272.1 HYPERTRIGLYCERIDEMIA 10/16/2010 BELTRAN DO, JULIET K 274.9 GOUT 10/16/2010 BELTRAN DO, JULIET K 272.1 HYPERTRIGLYCERIDEMIA 10/16/2010 BELTRAN DO, JULIET K 274.9 GOUT 10/16/2010 BELTRAN DO, JULIET K 272.1 HYPERTRIGLYCERIDEMIA 10/16/2010 BELTRAN DO, JULIET K 274.9 GOUT 10/16/2010 BELTRAN DO, JULIET K 272.1 HYPERTRIGLYCERIDEMIA 10/16/2010 BELTRAN DO, JULIET K 274.9 GOUT 10/16/2010 BELTRAN DO, JULIET K 272.1 HYPERTRIGLYCERIDEMIA 10/16/2010 BELTRAN DO, JULIET K 274.9 GOUT 10/16/2010 BELTRAN DO, JULIET K 272.1 HYPERTRIGLYCERIDEMIA 10/16/2010 BELTRAN DO, JULIET K 274.9 GOUT 10/16/2010 BELTRAN DO, JULIET K 272.1 HYPERTRIGLYCERIDEMIA 10/16/2010 BELTRAN DO, JULIET K 274.9 GOUT 10/16/2010 BELTRAN DO, JULIET K 272.1 HYPERTRIGLYCERIDEMIA 10/16/2010 BELTRAN DO, JULIET K 274.9 GOUT 10/16/2010 BELTRAN DO, JULIET K 272.1 HYPERTRIGLYCERIDEMIA 10/16/2010 BELTRAN DO, JULIET K 274.9 GOUT 10/16/2010 BELTRAN DO, JULIET K 272.1 HYPERTRIGLYCERIDEMIA 10/16/2010 BELTRAN DO, JULIET K 274.9 GOUT 10/16/2010 BELTRAN DO, JULIET K 272.1 HYPERTRIGLYCERIDEMIA 10/16/2010 BELTRAN DO, JULIET K 274.9 GOUT 10/16/2010 BELTRAN DO, JULIET K 272.1 HYPERTRIGLYCERIDEMIA 10/16/2010 BELTRAN DO, JULIET K 274.9 GOUT 10/16/2010 GRAHAM ESTRELLA, CHRIS N 272.1 HYPERTRIGLYCERIDEMIA 10/16/2010 GRAHAM ESTRELLA, CHRIS N 274.9 GOUT 10/16/2010 BELTRAN DO, JULIET K 272.1 HYPERTRIGLYCERIDEMIA 10/16/2010 BELTRAN DO, JULIET K 274.9 GOUT 10/16/2010 BELTRAN DO, JULIET K 272.1 HYPERTRIGLYCERIDEMIA 10/16/2010 BELTRAN DO, JULIET K 274.9 GOUT 10/16/2010 BELTRAN DO, JULIET K 272.1 HYPERTRIGLYCERIDEMIA 10/16/2010 BELTRAN DO, JULIET K 274.9 GOUT 10/16/2010 BELTRAN DO, JULIET K 272.1 HYPERTRIGLYCERIDEMIA 10/16/2010 BELTRAN DO, JULIET K 274.9 GOUT 10/16/2010 BELTRAN DO, JULIET K 272.1 HYPERTRIGLYCERIDEMIA 10/16/2010 BELTRAN DO, JULIET K 274.9 GOUT 10/16/2010 BELTRAN DO, JULIET K 272.1 HYPERTRIGLYCERIDEMIA 10/16/2010 BELTRAN DO, JULIET K 274.9 GOUT 10/16/2010 GRAHAM ESTRELLA, CHRIS N 272.1 HYPERTRIGLYCERIDEMIA 10/16/2010 CHRIS STEVENSON MD N 274.9 GOUT 10/16/2010 CHRIS STEVENSON MD N 272.1 HYPERTRIGLYCERIDEMIA 10/16/2010 CHRIS STEVENSON MD N 274.9 GOUT 10/16/2010 BELTRAN DO, JULIET K 272.1 HYPERTRIGLYCERIDEMIA 10/16/2010 BELTRAN DO, JULIET K 274.9 GOUT 10/16/2010 BELTRAN DO, JULIET K 272.1 HYPERTRIGLYCERIDEMIA 10/16/2010 BELTRAN DO, JULIET K 274.9 GOUT 10/16/2010 BELTRAN DO, JULIET K 272.1 HYPERTRIGLYCERIDEMIA 10/16/2010 BELTRAN DO, JULIET K 274.9 GOUT 10/16/2010 BELTRAN DO, JULIET K 272.1 HYPERTRIGLYCERIDEMIA 10/16/2010 BELTRAN DO, JULIET K 274.9 GOUT 10/16/2010 BELTRAN DO, JULIET K 272.1 HYPERTRIGLYCERIDEMIA 10/16/2010 BELTRAN DO, JULIET K 274.9 GOUT 10/16/2010 BELTRAN DO, JULIET K 272.1 HYPERTRIGLYCERIDEMIA 10/16/2010 BELTRAN DO, JULIET K 274.9 GOUT 10/16/2010 LUCA DPM, KELLE 272.1 HYPERTRIGLYCERIDEMIA 10/16/2010 LUCA DPM, KELLE 274.9 GOUT 10/16/2010 ZHU LEASE BROKER, RAHUL R 272.1 HYPERTRIGLYCERIDEMIA 10/16/2010 ZHU LEASE BROKER, RAHUL R 274.9 GOUT 10/16/2010 BELTRAN DO, JULIET K 272.1 HYPERTRIGLYCERIDEMIA 10/16/2010 BELTRAN DO, JULIET K 274.9 GOUT 10/16/2010 BELTRAN DO, JULIET K 272.1 HYPERTRIGLYCERIDEMIA 10/16/2010 BELTRAN DO, JULIET K 274.9 GOUT 10/16/2010 BELTRAN DO, JULIET K 272.1 HYPERTRIGLYCERIDEMIA 10/16/2010 BELTRAN DO, JULIET K 274.9 GOUT 10/16/2010 BELTRAN DO, JULIET K 272.1 HYPERTRIGLYCERIDEMIA 10/16/2010 BELTRAN DO, JULIET K 274.9 GOUT 10/16/2010 BELTRAN DO, JULIET K 272.1 HYPERTRIGLYCERIDEMIA 10/16/2010 BELTRAN DO, JULIET K 274.9 GOUT 10/16/2010 BELTRAN DO, JULIET K 272.1 HYPERTRIGLYCERIDEMIA 10/16/2010 BELTRAN DO, JULIET K 274.9 GOUT 10/16/2010 CHRIS STEVENSON MD N 272.1 HYPERTRIGLYCERIDEMIA 10/16/2010 GRAHAM ESTRELLA CHRIS N 274.9 GOUT 10/16/2010 GRAHAM ESTRELLA, CHRIS N 272.1 HYPERTRIGLYCERIDEMIA 10/16/2010 GRAHAM ESTRELLA, CHRIS N 274.9 GOUT 10/16/2010 BELTRAN DO, JULIET K 272.1 HYPERTRIGLYCERIDEMIA 10/16/2010 BELTRAN DO, JULIET K 274.9 GOUT 10/16/2010 BELTRAN DO, JULIET K 272.1 HYPERTRIGLYCERIDEMIA 10/16/2010 BELTRAN DO, JULIET K 274.9 GOUT 10/16/2010 GRAHAM ESTRELLA CHRIS N 272.1 HYPERTRIGLYCERIDEMIA 10/16/2010 GRAHAM ESTRELLA, CHRIS N 274.9 GOUT 10/16/2010 CHRIS STEVENSON MD N 272.1 HYPERTRIGLYCERIDEMIA 10/16/2010 CHRIS STEVENSON MD N 274.9 GOUT 10/16/2010 BELTRAN DO, JULIET K 272.1 HYPERTRIGLYCERIDEMIA 10/16/2010 BELTRAN DO, JULIET K 274.9 GOUT 10/16/2010 CHRIS STEVENSON MD N 272.1 HYPERTRIGLYCERIDEMIA 10/16/2010 GRAHAM ESTRELLA, CHRIS N 274.9 GOUT 10/16/2010 BELTRAN DO, JULIET K 272.1 HYPERTRIGLYCERIDEMIA 10/16/2010 BELTRAN DO, JULIET K 274.9 GOUT 12/11/2010 BELTRAN DO, JULIET K 719.46 PAIN IN JOINT INVOLVING LOWER LEG 12/11/2010 719.46 PAIN IN JOINT INVOLVING LOWER LEG 12/11/2010 719.46 PAIN IN JOINT INVOLVING LOWER LEG 12/11/2010 BRIDGETT AGUILERA APRN 719.46 PAIN IN JOINT INVOLVING LOWER LEG 12/11/2010 719.46 PAIN IN JOINT INVOLVING LOWER LEG 12/11/2010 719.46 PAIN IN JOINT INVOLVING LOWER LEG 12/11/2010 719.46 PAIN IN JOINT INVOLVING LOWER LEG 12/11/2010 719.46 PAIN IN JOINT INVOLVING LOWER LEG 12/11/2010 RAHUL ZHU APRN 719.46 joint pain in the left knee 12/11/2010 DEVIN WATTERS JULIET K 719.46 joint pain in the left knee 12/11/2010 719.46 joint pain in the left knee 12/11/2010 RAHUL ZHU APRN 719.46 joint pain in the left knee 12/11/2010 BELTRAN DO, JULIET K 719.46 joint pain in the left knee 12/11/2010 719.46 joint pain in the left knee 12/11/2010 719.46 joint pain in the left knee 12/11/2010 719.46 joint pain in the left knee 12/11/2010 BELTRAN DO, JULIET K 719.46 joint pain in the left knee 12/11/2010 RAHUL ZHU APRN 719.46 joint pain in the left knee 12/11/2010 BELTRAN DO, JULIET K 719.46 joint pain in the left knee 12/11/2010 BELTRAN DO, JULIET K 719.46 joint pain in the left knee 12/11/2010 BELTRAN DO, JULIET K 719.46 joint pain in the left knee 12/11/2010 BELTRAN DO, JULIET K 719.46 joint pain in the left knee 12/11/2010 BELTRAN DO, JULIET K 719.46 joint pain in the left knee 12/11/2010 BELTRAN DO, JULIET K 719.46 joint pain in the left knee 12/11/2010 GRAHAM ESTRELLA, CHRIS Steiner 719.46 joint pain in the left knee 12/11/2010 BELTRAN DO, JULIET K 719.46 joint pain in the left knee 12/11/2010 BELTRAN DO, JULIET K 719.46 joint pain in the left knee 12/11/2010 BELTRAN DO, JULIET K 719.46 joint pain in the left knee 12/11/2010 BELTRAN DO, JULIET K 719.46 joint pain in the left knee 12/11/2010 BELTRAN DO, JULIET K 719.46 joint pain in the left knee 12/11/2010 BELTRAN DO, JULIET K 719.46 joint pain in the left knee 12/11/2010 BELTRAN DO, JULIET K 719.46 joint pain in the left knee 12/11/2010 BELTRAN DO, JULIET K 719.46 joint pain in the left knee 12/11/2010 BELTRAN DO, JULIET K 719.46 joint pain in the left knee 12/11/2010 BELTRAN DO, JULIET K 719.46 joint pain in the left knee 12/11/2010 BELTRAN DO, JULIET K 719.46 joint pain in the left knee 12/11/2010 BELTRAN DO, JULIET K 719.46 joint pain in the left knee 12/11/2010 BELTRAN DO, JULIET K 719.46 joint pain in the left knee 12/11/2010 CHRIS STEVENSON MD 719.46 joint pain in the left knee 12/11/2010 BELTRAN DO, JULIET K 719.46 joint pain in the left knee 12/11/2010 BELTRAN DO, JULIET K 719.46 joint pain in the left knee 12/11/2010 BELTRAN DO, JULIET K 719.46 joint pain in the left knee 12/11/2010 BELTRAN DO, JULIET K 719.46 joint pain in the left knee 12/11/2010 BELTRAN DO, JULIET K 719.46 joint pain in the left knee 12/11/2010 BELTRAN DO, JULIET K 719.46 joint pain in the left knee 12/11/2010 CHRIS STEVENSON MD 719.46 joint pain in the left knee 12/11/2010 CHRIS STEVENSON MD 719.46 joint pain in the left knee 12/11/2010 BELTRAN DO, JULIET K 719.46 joint pain in the left knee 12/11/2010 BELTRAN DO, JULIET K 719.46 joint pain in the left knee 12/11/2010 BELTRAN DO, JULIET K 719.46 joint pain in the left knee 12/11/2010 BELTRAN DO, JULIET K 719.46 joint pain in the left knee 12/11/2010 BELTRAN DO, JULIET K 719.46 joint pain in the left knee 12/11/2010 BELTRAN DO, JULIET K 719.46 joint pain in the left knee 12/11/2010 KELLE DIAZ DPM 719.46 joint pain in the left knee 12/11/2010 AUDRA ZAMORANRAHUL R 719.46 joint pain in the left knee 12/11/2010 BELTRAN DO, JULIET K 719.46 joint pain in the left knee 12/11/2010 BELTRAN DO, JULIET K 719.46 joint pain in the left knee 12/11/2010 BELTRAN DO, JULIET K 719.46 joint pain in the left knee 12/11/2010 BELTRAN DO, JULIET K 719.46 joint pain in the left knee 12/11/2010 BELTRAN DO, JULIET K 719.46 joint pain in the left knee 12/11/2010 JULIET BELTRAN DO 719.46 joint pain in the left knee 12/11/2010 CHRIS STEVENSON MD N 719.46 joint pain in the left knee 12/11/2010 CHRIS STEVENSON MD 719.46 joint pain in the left knee 12/11/2010 JULIET BELTRAN DO 719.46 joint pain in the left knee 12/11/2010 JULIET BELTRAN DO 719.46 joint pain in the left knee 12/11/2010 CHRIS STEVENSON MD N 719.46 joint pain in the left knee 12/11/2010 CHRIS STEVENSON MD 719.46 joint pain in the left knee 12/11/2010 JULIET BELTRNA DO 719.46 joint pain in the left knee 12/11/2010 CHRIS STEVENSON MD N 719.46 joint pain in the left knee 12/11/2010 JULIET BELTRAN DO 719.46 joint pain in the left knee 01/02/2011 JULIET BELTRAN DO 733.92 CHONDROMALACIA 01/02/2011 733.92 CHONDROMALACIA 01/02/2011 733.92 CHONDROMALACIA 01/02/2011 BRIDGETT AGUILERA APRN 733.92 CHONDROMALACIA 01/02/2011 733.92 CHONDROMALACIA 01/02/2011 733.92 CHONDROMALACIA 01/02/2011 733.92 CHONDROMALACIA 01/02/2011 733.92 CHONDROMALACIA 01/02/2011 RAHUL ZHU APRN R 733.92 CHONDROMALACIA 01/02/2011 JULIET BELTRAN DO K 733.92 CHONDROMALACIA 01/02/2011 733.92 CHONDROMALACIA 01/02/2011 RAHUL ZHU APRN R 733.92 CHONDROMALACIA 01/02/2011 JULIET BELTRAN DO K 733.92 CHONDROMALACIA 01/02/2011 733.92 CHONDROMALACIA 01/02/2011 733.92 CHONDROMALACIA 01/02/2011 733.92 CHONDROMALACIA 01/02/2011 JULIET BELTRAN DO K 733.92 CHONDROMALACIA 01/02/2011 RAHUL ZHU APRN R 733.92 CHONDROMALACIA 01/02/2011 BELTRAN DO, JULIET K 733.92 CHONDROMALACIA 01/02/2011 BELTRAN DO, JULIET K 733.92 CHONDROMALACIA 01/02/2011 BELTRAN DO, JULIET K 733.92 CHONDROMALACIA 01/02/2011 BELTRAN DO, JULIET K 733.92 CHONDROMALACIA 01/02/2011 BELTRAN DO, JULIET K 733.92 CHONDROMALACIA 01/02/2011 BELTRAN DO, JULIET K 733.92 CHONDROMALACIA 01/02/2011 CHRIS STEVENSON MD 733.92 CHONDROMALACIA 01/02/2011 BELTRAN DO, JULIET K 733.92 CHONDROMALACIA 01/02/2011 BELTRAN DO, JULIET K 733.92 CHONDROMALACIA 01/02/2011 BELTRAN DO, JULIET K 733.92 CHONDROMALACIA 01/02/2011 BELTRAN DO, JULIET K 733.92 CHONDROMALACIA 01/02/2011 BELTRAN DO, JULIET K 733.92 CHONDROMALACIA 01/02/2011 BELTRAN DO, JULIET K 733.92 CHONDROMALACIA 01/02/2011 BELTRAN DO, JULIET K 733.92 CHONDROMALACIA 01/02/2011 BELTRAN DO, JULIET K 733.92 CHONDROMALACIA 01/02/2011 BELTRAN DO, JULIET K 733.92 CHONDROMALACIA 01/02/2011 BELTRAN DO, JULIET K 733.92 CHONDROMALACIA 01/02/2011 BELTRAN DO, JULIET K 733.92 CHONDROMALACIA 01/02/2011 BELTRAN DO, JULIET K 733.92 CHONDROMALACIA 01/02/2011 BELTRAN DO, JULIET K 733.92 CHONDROMALACIA 01/02/2011 CHRIS STEVENSON MD 733.92 CHONDROMALACIA 01/02/2011 BELTRAN DO, JULIET K 733.92 CHONDROMALACIA 01/02/2011 BELTRAN DO, JULIET K 733.92 CHONDROMALACIA 01/02/2011 BELTRAN DO, JULIET K 733.92 CHONDROMALACIA 01/02/2011 BELTRAN DO, JULIET K 733.92 CHONDROMALACIA 01/02/2011 BELTRAN DO, JULIET K 733.92 CHONDROMALACIA 01/02/2011 BELTRAN DO, JULIET K 733.92 CHONDROMALACIA 01/02/2011 GRAHAM MD, CHRIS N 733.92 CHONDROMALACIA 01/02/2011 CHRIS STEVENSON MD 733.92 CHONDROMALACIA 01/02/2011 BELTRAN DO, JULIET K 733.92 CHONDROMALACIA 01/02/2011 BELTRAN DO, JULIET K 733.92 CHONDROMALACIA 01/02/2011 BELTRAN DO, JULIET K 733.92 CHONDROMALACIA 01/02/2011 BELTRAN DO, JULIET K 733.92 CHONDROMALACIA 01/02/2011 BELTRAN DO, JULIET K 733.92 CHONDROMALACIA 01/02/2011 BELTRAN DO, JULIET K 733.92 CHONDROMALACIA 01/02/2011 LUCA DPM, KELLE 733.92 CHONDROMALACIA 01/02/2011 RAHUL ZHU APRN 733.92 CHONDROMALACIA 01/02/2011 BELTRAN DO, JULIET K 733.92 CHONDROMALACIA 01/02/2011 BELTRAN DO, JULIET K 733.92 CHONDROMALACIA 01/02/2011 BELTRAN DO, JULIET K 733.92 CHONDROMALACIA 01/02/2011 BELTRAN DO, JULIET K 733.92 CHONDROMALACIA 01/02/2011 BELTRAN DO, JULIET K 733.92 CHONDROMALACIA 01/02/2011 BELTRAN DO, JULIET K 733.92 CHONDROMALACIA 01/02/2011 CHRIS STEVENSON MD N 733.92 CHONDROMALACIA 01/02/2011 CHRIS STEVENSON MD 733.92 CHONDROMALACIA 01/02/2011 BELTRAN DO, JULIET K 733.92 CHONDROMALACIA 01/02/2011 BELTRAN DO, JULIET K 733.92 CHONDROMALACIA 01/02/2011 CHIRS STEVENSON MD 733.92 CHONDROMALACIA 01/02/2011 CHRIS STEVENSON MD 733.92 CHONDROMALACIA 01/02/2011 BELTRAN DO, JULIET K 733.92 CHONDROMALACIA 01/02/2011 CHRIS STEVENSON MD 733.92 CHONDROMALACIA 01/02/2011 BELTRAN DO, JULIET K 733.92 CHONDROMALACIA 02/10/2011 BELTRAN DO, JULIET K 788.41 URINARY FREQUENCY 02/10/2011 BELTRAN DO, JULIET K 788.43 NOCTURIA 02/10/2011 BELTRAN DO, JULIET K 799.81 DECREASED LIBIDO 02/10/2011 788.41 URINARY FREQUENCY 02/10/2011 788.43 NOCTURIA 02/10/2011 799.81 DECREASED LIBIDO 02/10/2011 788.41 URINARY FREQUENCY 02/10/2011 788.43 NOCTURIA 02/10/2011 799.81 DECREASED LIBIDO 02/10/2011 WILLY LEASE BROKER, BRIDGETT S 788.41 URINARY FREQUENCY 02/10/2011 WILLY LEASE BROKER, BRIDGETT S 788.43 NOCTURIA 02/10/2011 WILLY LEASE BROKER, BRIDGETT S 799.81 DECREASED LIBIDO 02/10/2011 788.41 URINARY FREQUENCY 02/10/2011 788.43 NOCTURIA 02/10/2011 799.81 DECREASED LIBIDO 02/10/2011 788.41 URINARY FREQUENCY 02/10/2011 788.43 NOCTURIA 02/10/2011 799.81 DECREASED LIBIDO 02/10/2011 788.41 URINARY FREQUENCY 02/10/2011 788.43 NOCTURIA 02/10/2011 799.81 DECREASED LIBIDO 02/10/2011 788.41 URINARY FREQUENCY 02/10/2011 788.43 NOCTURIA 02/10/2011 799.81 DECREASED LIBIDO 02/10/2011 ALFRED ZHU APRNRICIA R 788.41 URINARY FREQUENCY 02/10/2011 ALFRED ZHU APRNRICIA R 788.43 NOCTURIA 02/10/2011 ALFRED ZHU APRNRICIA R 799.81 DECREASED LIBIDO 02/10/2011 BELTRAN DO, JULIET K 788.41 URINARY FREQUENCY 02/10/2011 BELTRAN DO, JULIET K 788.43 NOCTURIA 02/10/2011 BELTRAN DO, JULIET K 799.81 DECREASED LIBIDO 02/10/2011 788.41 URINARY FREQUENCY 02/10/2011 788.43 NOCTURIA 02/10/2011 799.81 DECREASED LIBIDO 02/10/2011 ALFRED ZHU APRNRICIA R 788.41 URINARY FREQUENCY 02/10/2011 AUDRA DIAZ RAHUL R 788.43 NOCTURIA 02/10/2011 AUDRA DIAZ RAHUL R 799.81 DECREASED LIBIDO 02/10/2011 BELTRAN DO, JULIET K 788.41 URINARY FREQUENCY 02/10/2011 BELTRAN DO, JULIET K 788.43 NOCTURIA 02/10/2011 BELTRAN DO, JULIET K 799.81 DECREASED LIBIDO 02/10/2011 788.41 URINARY FREQUENCY 02/10/2011 788.43 NOCTURIA 02/10/2011 799.81 DECREASED LIBIDO 02/10/2011 788.41 URINARY FREQUENCY 02/10/2011 788.43 NOCTURIA 02/10/2011 799.81 DECREASED LIBIDO 02/10/2011 788.41 URINARY FREQUENCY 02/10/2011 788.43 NOCTURIA 02/10/2011 799.81 DECREASED LIBIDO 02/10/2011 BELTRAN DO, JULIET K 788.41 URINARY FREQUENCY 02/10/2011 BELTRAN DO, JULIET K 788.43 NOCTURIA 02/10/2011 BELTRAN DO, JULIET K 799.81 DECREASED LIBIDO 02/10/2011 ZHU LEASE BROKER, RAHUL R 788.41 URINARY FREQUENCY 02/10/2011 AUDRA LEASE BROKER, RAHUL R 788.43 NOCTURIA 02/10/2011 AUDRA LEASE BROKER, RAHUL R 799.81 DECREASED LIBIDO 02/10/2011 BELTRAN DO, JULIET K 788.41 URINARY FREQUENCY 02/10/2011 BELTRAN DO, JULIET K 788.43 NOCTURIA 02/10/2011 BELTRAN DO, JULIET K 799.81 DECREASED LIBIDO 02/10/2011 BELTRAN DO, JULIET K 788.41 URINARY FREQUENCY 02/10/2011 BELTRAN DO, JULIET K 788.43 NOCTURIA 02/10/2011 BELTRAN DO, JULIET K 799.81 DECREASED LIBIDO 02/10/2011 BELTRAN DO, JULIET K 788.41 URINARY FREQUENCY 02/10/2011 BELTRAN DO, JULIET K 788.43 NOCTURIA 02/10/2011 BELTRAN DO, JULIET K 799.81 DECREASED LIBIDO 02/10/2011 BELTRAN DO, JULIET K 788.41 URINARY FREQUENCY 02/10/2011 BELTRAN DO, JULIET K 788.43 NOCTURIA 02/10/2011 BELTRAN DO, JULIET K 799.81 DECREASED LIBIDO 02/10/2011 BELTRAN DO, JULIET K 788.41 URINARY FREQUENCY 02/10/2011 BELTRAN DO, JULIET K 788.43 NOCTURIA 02/10/2011 BELTRAN DO, JULIET K 799.81 DECREASED LIBIDO 02/10/2011 BELTRAN DO, JULIET K 788.41 URINARY FREQUENCY 02/10/2011 BELTRAN DO, JULIET K 788.43 NOCTURIA 02/10/2011 BELTRAN DO, JULIET K 799.81 DECREASED LIBIDO 02/10/2011 GRAHAM ESTRELLA, CHRIS N 788.41 URINARY FREQUENCY 02/10/2011 GRAHAM ESTRELLA, CHRIS N 788.43 NOCTURIA 02/10/2011 GRAHAM ESTRELLA, CHRIS N 799.81 DECREASED LIBIDO 02/10/2011 BELTRAN DO, JULIET K 788.41 URINARY FREQUENCY 02/10/2011 BELTRAN DO, JULIET K 788.43 NOCTURIA 02/10/2011 BELTRAN DO, JULIET K 799.81 DECREASED LIBIDO 02/10/2011 BELTRAN DO, JULIET K 788.41 URINARY FREQUENCY 02/10/2011 BELTRAN DO, JULIET K 788.43 NOCTURIA 02/10/2011 BELTRAN DO, JULIET K 799.81 DECREASED LIBIDO 02/10/2011 BELTRAN DO, JULIET K 788.41 URINARY FREQUENCY 02/10/2011 BELTRAN DO, JULIET K 788.43 NOCTURIA 02/10/2011 BELTRAN DO, JULIET K 799.81 DECREASED LIBIDO 02/10/2011 BELTRAN DO, JULIET K 788.41 URINARY FREQUENCY 02/10/2011 BELTRAN DO, JULIET K 788.43 NOCTURIA 02/10/2011 BELTRAN DO, JULIET K 799.81 DECREASED LIBIDO 02/10/2011 BELTRAN DO, JULIET K 788.41 URINARY FREQUENCY 02/10/2011 BELTRAN DO, JULIET K 788.43 NOCTURIA 02/10/2011 BELTRAN DO, JULIET K 799.81 DECREASED LIBIDO 02/10/2011 BELTRAN DO, JULIET K 788.41 URINARY FREQUENCY 02/10/2011 BELTRAN DO, JULIET K 788.43 NOCTURIA 02/10/2011 BELTRAN DO, JULIET K 799.81 DECREASED LIBIDO 02/10/2011 BELTRAN DO, JULIET K 788.41 URINARY FREQUENCY 02/10/2011 BELTRAN DO, JULIET K 788.43 NOCTURIA 02/10/2011 BELTRAN DO, JULIET K 799.81 DECREASED LIBIDO 02/10/2011 BELTRAN DO, JULIET K 788.41 URINARY FREQUENCY 02/10/2011 BELTRAN DO, JULIET K 788.43 NOCTURIA 02/10/2011 BELTRAN DO, JULIET K 799.81 DECREASED LIBIDO 02/10/2011 BELTRAN DO, JULIET K 788.41 URINARY FREQUENCY 02/10/2011 BELTRAN DO, JULIET K 788.43 NOCTURIA 02/10/2011 BELTRAN DO, JULIET K 799.81 DECREASED LIBIDO 02/10/2011 BELTRAN DO, JULIET K 788.41 URINARY FREQUENCY 02/10/2011 BELTRAN DO, JULIET K 788.43 NOCTURIA 02/10/2011 BELTRAN DO, JULIET K 799.81 DECREASED LIBIDO 02/10/2011 BELTRAN DO, JULIET K 788.41 URINARY FREQUENCY 02/10/2011 BELTRAN DO, JULIET K 788.43 NOCTURIA 02/10/2011 BELTRAN DO, JULIET K 799.81 DECREASED LIBIDO 02/10/2011 BELTRAN DO, JULIET K 788.41 URINARY FREQUENCY 02/10/2011 BELTRAN DO, JULIET K 788.43 NOCTURIA 02/10/2011 BELTRAN DO, JULIET K 799.81 DECREASED LIBIDO 02/10/2011 BELTRAN DO, JULIET K 788.41 URINARY FREQUENCY 02/10/2011 BELTRAN DO, JULIET K 788.43 NOCTURIA 02/10/2011 BELTRAN DO, JULIET K 799.81 DECREASED LIBIDO 02/10/2011 GRAHAM ESTRELLA, CHRIS N 788.41 URINARY FREQUENCY 02/10/2011 CHRIS STEVENSON MD N 788.43 NOCTURIA 02/10/2011 CHRIS STEVENSON MD N 799.81 DECREASED LIBIDO 02/10/2011 BELTRAN DO, JULIET K 788.41 URINARY FREQUENCY 02/10/2011 BELTRAN DO, JULIET K 788.43 NOCTURIA 02/10/2011 BELTRAN DO, JULIET K 799.81 DECREASED LIBIDO 02/10/2011 BELTRAN DO, JULIET K 788.41 URINARY FREQUENCY 02/10/2011 BELTRAN DO, JULIET K 788.43 NOCTURIA 02/10/2011 BELTRAN DO, JULIET K 799.81 DECREASED LIBIDO 02/10/2011 BELTRAN DO, JULIET K 788.41 URINARY FREQUENCY 02/10/2011 BELTRAN DO, JULIET K 788.43 NOCTURIA 02/10/2011 BELTRAN DO, JULIET K 799.81 DECREASED LIBIDO 02/10/2011 BELTRAN DO, JULIET K 788.41 URINARY FREQUENCY 02/10/2011 BELTRAN DO, JULIET K 788.43 NOCTURIA 02/10/2011 BELTARN DO, JULIET K 799.81 DECREASED LIBIDO 02/10/2011 BELTRAN DO, JULIET K 788.41 URINARY FREQUENCY 02/10/2011 BELTRAN DO, JULIET K 788.43 NOCTURIA 02/10/2011 BELTRAN DO, JULIET K 799.81 DECREASED LIBIDO 02/10/2011 BELTRAN DO, JULIET K 788.41 URINARY FREQUENCY 02/10/2011 BELTRAN DO, JULIET K 788.43 NOCTURIA 02/10/2011 BELTRAN DO, JULIET K 799.81 DECREASED LIBIDO 02/10/2011 GRAHAM ESTRELLA, CHRIS N 788.41 URINARY FREQUENCY 02/10/2011 GRAHAM ESTRELLA, CHRIS N 788.43 NOCTURIA 02/10/2011 GRAHAM ESTRELLA, CHRIS N 799.81 DECREASED LIBIDO 02/10/2011 GRAHAM ESTRELLA, CHRIS N 788.41 URINARY FREQUENCY 02/10/2011 GRAHAM ESTRELLA, CHRIS N 788.43 NOCTURIA 02/10/2011 GRAHAM ESTRELLA, CHRIS N 799.81 DECREASED LIBIDO 02/10/2011 BELTRAN DO, JULIET K 788.41 URINARY FREQUENCY 02/10/2011 BELTRAN DO, JULIET K 788.43 NOCTURIA 02/10/2011 BELTRAN DO, JULIET K 799.81 DECREASED LIBIDO 02/10/2011 BELTRAN DO, JULIET K 788.41 URINARY FREQUENCY 02/10/2011 BELTRAN DO, JULIET K 788.43 NOCTURIA 02/10/2011 BELTRAN DO, JULIET K 799.81 DECREASED LIBIDO 02/10/2011 BELTRAN DO, JULIET K 788.41 URINARY FREQUENCY 02/10/2011 BELTRAN DO, JULIET K 788.43 NOCTURIA 02/10/2011 BELTRAN DO, JULIET K 799.81 DECREASED LIBIDO 02/10/2011 BELTRAN DO, JULIET K 788.41 URINARY FREQUENCY 02/10/2011 BELTRAN DO, JULIET K 788.43 NOCTURIA 02/10/2011 BELTRAN DO, JULIET K 799.81 DECREASED LIBIDO 02/10/2011 BELTRAN DO, JULIET K 788.41 URINARY FREQUENCY 02/10/2011 BELTRAN DO, JULIET K 788.43 NOCTURIA 02/10/2011 BELTRAN DO, JULIET K 799.81 DECREASED LIBIDO 02/10/2011 BELTRAN DO, JULIET K 788.41 URINARY FREQUENCY 02/10/2011 BELTRAN DO, JULIET K 788.43 NOCTURIA 02/10/2011 BELTRAN DO, JULIET K 799.81 DECREASED LIBIDO 02/10/2011 LUCA DPM, KELLE 788.41 URINARY FREQUENCY 02/10/2011 LUCA DPM, KELLE 788.43 NOCTURIA 02/10/2011 LUCA DPM, KELLE 799.81 DECREASED LIBIDO 02/10/2011 ZHU LEASE BROKER, RAHUL R 788.41 URINARY FREQUENCY 02/10/2011 ZHU LEASE BROKER, RAHUL R 788.43 NOCTURIA 02/10/2011 ZHU LEASE BROKER, RAHUL R 799.81 DECREASED LIBIDO 02/10/2011 BELTRAN DO, JULIET K 788.41 URINARY FREQUENCY 02/10/2011 BELTRAN DO, JULIET K 788.43 NOCTURIA 02/10/2011 BELTRAN DO, JULIET K 799.81 DECREASED LIBIDO 02/10/2011 BELTRAN DO, JULIET K 788.41 URINARY FREQUENCY 02/10/2011 BELTRAN DO, JULIET K 788.43 NOCTURIA 02/10/2011 BELTRAN DO, JULIET K 799.81 DECREASED LIBIDO 02/10/2011 BELTRAN DO, JULIET K 788.41 URINARY FREQUENCY 02/10/2011 BELTRAN DO, JULIET K 788.43 NOCTURIA 02/10/2011 BELTRAN DO, JULIET K 799.81 DECREASED LIBIDO 02/10/2011 BELTRAN DO, JULIET K 788.41 URINARY FREQUENCY 02/10/2011 BELTRAN DO, JULIET K 788.43 NOCTURIA 02/10/2011 BELTRAN DO, JULIET K 799.81 DECREASED LIBIDO 02/10/2011 BELTRAN DO, JULIET K 788.41 URINARY FREQUENCY 02/10/2011 BELTRAN DO, JULIET K 788.43 NOCTURIA 02/10/2011 BELTRAN DO, JULIET K 799.81 DECREASED LIBIDO 02/10/2011 BELTRAN DO, JULIET K 788.41 URINARY FREQUENCY 02/10/2011 BELTRAN DO, JULIET K 788.43 NOCTURIA 02/10/2011 BELTRAN DO, JULIET K 799.81 DECREASED LIBIDO 02/10/2011 CHRIS STEVENSON MD N 788.41 URINARY FREQUENCY 02/10/2011 CHRIS STEVENSON MD N 788.43 NOCTURIA 02/10/2011 CHRIS STEVENSON MD N 799.81 DECREASED LIBIDO 02/10/2011 CHRIS STEVENSON MD N 788.41 URINARY FREQUENCY 02/10/2011 CHRIS STEVENSON MD N 788.43 NOCTURIA 02/10/2011 CHRIS STEVENSON MD N 799.81 DECREASED LIBIDO 02/10/2011 BELTRAN DO, JULIET K 788.41 URINARY FREQUENCY 02/10/2011 BELTRAN DO, JULIET K 788.43 NOCTURIA 02/10/2011 BELTRAN DO, JULIET K 799.81 DECREASED LIBIDO 02/10/2011 BELTRAN DO, JULIET K 788.41 URINARY FREQUENCY 02/10/2011 BELTRAN DO, JULIET K 788.43 NOCTURIA 02/10/2011 BELTRAN DO, JULIET K 799.81 DECREASED LIBIDO 02/10/2011 CHRIS STEVENSON MD N 788.41 URINARY FREQUENCY 02/10/2011 CHRIS STEVENSON MD N 788.43 NOCTURIA 02/10/2011 CHRIS STEVENSON MD N 799.81 DECREASED LIBIDO 02/10/2011 CHRIS STEVENSON MD N 788.41 URINARY FREQUENCY 02/10/2011 CHRIS STEVENSON MD N 788.43 NOCTURIA 02/10/2011 CHRIS STEVENSON MD N 799.81 DECREASED LIBIDO 02/10/2011 BELTRAN DOMARIBELA K 788.41 URINARY FREQUENCY 02/10/2011 BELTRAN DO, JULIET K 788.43 NOCTURIA 02/10/2011 BELTRAN DO, JULIET K 799.81 DECREASED LIBIDO 02/10/2011 CHRIS STEVENSON MD N 788.41 URINARY FREQUENCY 02/10/2011 CHRIS STEVENSON MD N 788.43 NOCTURIA 02/10/2011 CHRIS STEVENSON MD N 799.81 DECREASED LIBIDO 02/10/2011 BELTRAN DO, JULIET K 788.41 URINARY FREQUENCY 02/10/2011 BELTRAN DO, JULIET K 788.43 NOCTURIA 02/10/2011 BELTRAN DO, JULIET K 799.81 DECREASED LIBIDO 02/15/2011 Ot 716.90 ARTHROPATHY NOS-UNSPEC 02/15/2011 Ot 729.81 SWELLING OF LIMB 02/28/2011 BELTRAN DO, JULIET K 790.29 HYPERGLYCEMIA 02/28/2011 790.29 HYPERGLYCEMIA 02/28/2011 790.29 HYPERGLYCEMIA 02/28/2011 WILLY ZAMORAJatin BRIDGETT S 790.29 HYPERGLYCEMIA 02/28/2011 790.29 HYPERGLYCEMIA 02/28/2011 790.29 HYPERGLYCEMIA 02/28/2011 790.29 HYPERGLYCEMIA 02/28/2011 790.29 HYPERGLYCEMIA 02/28/2011 ALFRED ZHU APRNRICIA R 790.29 HYPERGLYCEMIA 02/28/2011 BELTRAN DO, JULIET K 790.29 HYPERGLYCEMIA 02/28/2011 790.29 HYPERGLYCEMIA 02/28/2011 ALFRED ZHU APRNRICIA R 790.29 HYPERGLYCEMIA 02/28/2011 BELTRAN DO, JULIET K 790.29 HYPERGLYCEMIA 02/28/2011 790.29 HYPERGLYCEMIA 02/28/2011 790.29 HYPERGLYCEMIA 02/28/2011 790.29 HYPERGLYCEMIA 02/28/2011 BELTRAN DO, JULIET K 790.29 HYPERGLYCEMIA 02/28/2011 ALFRED ZHU APRNRICIA R 790.29 HYPERGLYCEMIA 02/28/2011 BELTRAN DO, JULIET K 790.29 HYPERGLYCEMIA 02/28/2011 BELTRAN DO, JULIET K 790.29 HYPERGLYCEMIA 02/28/2011 BELTRAN DO, JULIET K 790.29 HYPERGLYCEMIA 02/28/2011 BELTRAN DO, JULIET K 790.29 HYPERGLYCEMIA 02/28/2011 BELTRAN DO, JULIET K 790.29 HYPERGLYCEMIA 02/28/2011 BELTRAN DO, JULIET K 790.29 HYPERGLYCEMIA 02/28/2011 CHRIS STEVENSON MD 790.29 HYPERGLYCEMIA 02/28/2011 BELTRAN DO, JULIET K 790.29 HYPERGLYCEMIA 02/28/2011 BELTRAN DO, JULIET K 790.29 HYPERGLYCEMIA 02/28/2011 BELTRAN DO, JULIET K 790.29 HYPERGLYCEMIA 02/28/2011 BELTRAN DO, JULIET K 790.29 HYPERGLYCEMIA 02/28/2011 BELTRAN DO, JULIET K 790.29 HYPERGLYCEMIA 02/28/2011 BELTRAN DO, JULIET K 790.29 HYPERGLYCEMIA 02/28/2011 BELTRAN DO, JULIET K 790.29 HYPERGLYCEMIA 02/28/2011 BELTRAN DO, JULIET K 790.29 HYPERGLYCEMIA 02/28/2011 BELTRAN DO, JULIET K 790.29 HYPERGLYCEMIA 02/28/2011 BELTRAN DO, JULIET K 790.29 HYPERGLYCEMIA 02/28/2011 BELTRAN DO, JULIET K 790.29 HYPERGLYCEMIA 02/28/2011 BELTRAN DO, JULIET K 790.29 HYPERGLYCEMIA 02/28/2011 BELTRAN DO, JULIET K 790.29 HYPERGLYCEMIA 02/28/2011 CHRIS STEVENSON MD N 790.29 HYPERGLYCEMIA 02/28/2011 BELTRAN DO, JULIET K 790.29 HYPERGLYCEMIA 02/28/2011 BELTRAN DO, JULIET K 790.29 HYPERGLYCEMIA 02/28/2011 BELTRAN DO, JULIET K 790.29 HYPERGLYCEMIA 02/28/2011 BELTRAN DO, JULIET K 790.29 HYPERGLYCEMIA 02/28/2011 BELTRAN DO, JULIET K 790.29 HYPERGLYCEMIA 02/28/2011 BELTRAN DO, JULIET K 790.29 HYPERGLYCEMIA 02/28/2011 CHRIS STEVENSON MD N 790.29 HYPERGLYCEMIA 02/28/2011 CHRIS STEVENSON MD N 790.29 HYPERGLYCEMIA 02/28/2011 BELTRAN DO, JULIET K 790.29 HYPERGLYCEMIA 02/28/2011 BELTRAN DO, JULIET K 790.29 HYPERGLYCEMIA 02/28/2011 BELTRAN DO, JULIET K 790.29 HYPERGLYCEMIA 02/28/2011 BELTRAN DO, JULIET K 790.29 HYPERGLYCEMIA 02/28/2011 BELTRAN DO, JULIET K 790.29 HYPERGLYCEMIA 02/28/2011 BELTRAN DO, JULIET K 790.29 HYPERGLYCEMIA 02/28/2011 KELLE DIAZ DPM 790.29 HYPERGLYCEMIA 02/28/2011 RAHUL ZHU APRN R 790.29 HYPERGLYCEMIA 02/28/2011 BELTRAN DO, JULIET K 790.29 HYPERGLYCEMIA 02/28/2011 BELTRAN DO, JULIET K 790.29 HYPERGLYCEMIA 02/28/2011 BELTRAN DO, JULIET K 790.29 HYPERGLYCEMIA 02/28/2011 BELTRAN DO, JULIET K 790.29 HYPERGLYCEMIA 02/28/2011 BELTRAN DO, JULIET K 790.29 HYPERGLYCEMIA 02/28/2011 BELTRAN DO, JULIET K 790.29 HYPERGLYCEMIA 02/28/2011 CHRIS STEVENSON MD N 790.29 HYPERGLYCEMIA 02/28/2011 CHRIS STEVENSON MD N 790.29 HYPERGLYCEMIA 02/28/2011 BELTRAN DO, JULIET K 790.29 HYPERGLYCEMIA 02/28/2011 BELTRAN DO, JULIET K 790.29 HYPERGLYCEMIA 02/28/2011 CHRIS STEVENSON MD 790.29 HYPERGLYCEMIA 02/28/2011 CHRIS STEVENSON MD 790.29 HYPERGLYCEMIA 02/28/2011 BELTRAN DO, JULIET K 790.29 HYPERGLYCEMIA 02/28/2011 CHRIS STEVENSON MD 790.29 HYPERGLYCEMIA 02/28/2011 BELTRAN DO, JULIET K 790.29 HYPERGLYCEMIA 03/05/2011 BELTRAN DO, JULIET K V76.44 Prostate Screening 03/05/2011 V76.44 Prostate Screening 03/05/2011 V76.44 Prostate Screening 03/05/2011 BRIDGETT AGUILERA APRN V76.44 Prostate Screening 03/05/2011 V76.44 Prostate Screening 03/05/2011 V76.44 Prostate Screening 03/05/2011 V76.44 Prostate Screening 03/05/2011 V76.44 Prostate Screening 03/05/2011 RAHUL ZHU APRN R V76.44 Prostate Screening 03/05/2011 BELTRAN DO JULIET K V76.44 Prostate Screening 03/05/2011 V76.44 Prostate Screening 03/05/2011 RAHUL ZHU APRN R V76.44 Prostate Screening 03/05/2011 BELTRAN DO, JULIET K V76.44 Prostate Screening 03/05/2011 V76.44 Prostate Screening 03/05/2011 V76.44 Prostate Screening 03/05/2011 V76.44 Prostate Screening 03/05/2011 BELTRAN DO JULIET K V76.44 Prostate Screening 03/05/2011 RAHUL ZHU APRN R V76.44 Prostate Screening 03/05/2011 BELTRAN DO, JULIET K V76.44 Prostate Screening 03/05/2011 BELTRAN DO, JULIET K V76.44 Prostate Screening 03/05/2011 BELTRAN DO, JULIET K V76.44 Prostate Screening 03/05/2011 BELTRAN DO, JULIET K V76.44 Prostate Screening 03/05/2011 BELTRAN DO, JULIET K V76.44 Prostate Screening 03/05/2011 BELTRAN DO, JULIET K V76.44 Prostate Screening 03/05/2011 CHRIS STEVENSON MD V76.44 Prostate Screening 03/05/2011 BELTRAN DO, JULIET K V76.44 Prostate Screening 03/05/2011 BELTRAN DO, JULIET K V76.44 Prostate Screening 03/05/2011 BELTRAN DO, JULIET K V76.44 Prostate Screening 03/05/2011 BELTRAN DO, JULIET K V76.44 Prostate Screening 03/05/2011 BELTRAN DO, JULIET K V76.44 Prostate Screening 03/05/2011 BELTRAN DO, JULIET K V76.44 Prostate Screening 03/05/2011 BELTRAN DO, JULIET K V76.44 Prostate Screening 03/05/2011 BELTRAN DO, JULIET K V76.44 Prostate Screening 03/05/2011 BELTRAN DO, JULIET K V76.44 Prostate Screening 03/05/2011 BELTRAN DO, JULIET K V76.44 Prostate Screening 03/05/2011 BELTRAN DO, JULIET K V76.44 Prostate Screening 03/05/2011 BELTRAN DO, JULIET K V76.44 Prostate Screening 03/05/2011 BELTRAN DO, JULIET K V76.44 Prostate Screening 03/05/2011 CHRIS STEVENSON MD V76.44 Prostate Screening 03/05/2011 BELTRAN DO, JULIET K V76.44 Prostate Screening 03/05/2011 BELTRAN DO, JULIET K V76.44 Prostate Screening 03/05/2011 BLETRAN DO, JULIET K V76.44 Prostate Screening 03/05/2011 BELTRAN DO, JULIET K V76.44 Prostate Screening 03/05/2011 BELTRAN DO, JULIET K V76.44 Prostate Screening 03/05/2011 BELTRAN DO, JULIET K V76.44 Prostate Screening 03/05/2011 CHRIS STEVENSON MD V76.44 Prostate Screening 03/05/2011 CHRIS STEVENSON MD V76.44 Prostate Screening 03/05/2011 BELTRAN DO, JULIET K V76.44 Prostate Screening 03/05/2011 BELTRAN DO, JULIET K V76.44 Prostate Screening 03/05/2011 BELTRAN DO, JULIET K V76.44 Prostate Screening 03/05/2011 BELTRAN DO, JULIET K V76.44 Prostate Screening 03/05/2011 BELTRAN DO, JULIET K V76.44 Prostate Screening 03/05/2011 BELTRAN DO, JULIET K V76.44 Prostate Screening 03/05/2011 LUCA DPKELLE Garsia V76.44 Prostate Screening 03/05/2011 RAHUL ZHU APRN V76.44 Prostate Screening 03/05/2011 BELTRAN DOJULIET K V76.44 Prostate Screening 03/05/2011 BELTRAN DO, JULIET K V76.44 Prostate Screening 03/05/2011 BELTRAN DO, JULIET K V76.44 Prostate Screening 03/05/2011 BELTRAN DO, JULIET K V76.44 Prostate Screening 03/05/2011 BELTRAN DO, JULIET K V76.44 Prostate Screening 03/05/2011 BELTRAN DO, JULIET K V76.44 Prostate Screening 03/05/2011 CHRIS STEVENSON MD V76.44 Prostate Screening 03/05/2011 CHRIS STEVENSON MD V76.44 Prostate Screening 03/05/2011 BELTRAN DO, JULIET K V76.44 Prostate Screening 03/05/2011 BELTRAN DO, JULIET K V76.44 Prostate Screening 03/05/2011 CHRIS STEVENSON MD V76.44 Prostate Screening 03/05/2011 CHRIS STEVENSON MD V76.44 Prostate Screening 03/05/2011 BELTRAN DO, JULIET K V76.44 Prostate Screening 03/05/2011 CHRIS STEVENSON MD V76.44 Prostate Screening 03/05/2011 BELTRAN DO, JULIET K V76.44 Prostate Screening 07/01/2011 BELTRAN DOJULIET K 477.0 ALLERGIC RHINITIS DUE TO POLLEN 07/01/2011 BELTRAN DOJULIET K 564.1 IRRITABLE BOWEL SYNDROME 07/01/2011 DEVIN WATTERSJULIET K 695.3 ROSACEA 07/01/2011 DEVIN WATTERSJULIET K V77.1 DIABETES SCREENING 07/01/2011 477.0 ALLERGIC RHINITIS DUE TO POLLEN 07/01/2011 564.1 IRRITABLE BOWEL SYNDROME 07/01/2011 695.3 ROSACEA 07/01/2011 V77.1 DIABETES SCREENING 07/01/2011 477.0 ALLERGIC RHINITIS DUE TO POLLEN 07/01/2011 564.1 IRRITABLE BOWEL SYNDROME 07/01/2011 695.3 ROSACEA 07/01/2011 V77.1 DIABETES SCREENING 07/01/2011 BRIDGETT AGUILERA APRN 477.0 ALLERGIC RHINITIS DUE TO POLLEN 07/01/2011 WILLY LEASE BROKER, BRIDGETT S 564.1 IRRITABLE BOWEL SYNDROME 07/01/2011 WESTON AGUILERA APRNA S 695.3 ROSACEA 07/01/2011 BRIDGETT AGUILERA APRN S V77.1 DIABETES SCREENING 07/01/2011 477.0 ALLERGIC RHINITIS DUE TO POLLEN 07/01/2011 564.1 IRRITABLE BOWEL SYNDROME 07/01/2011 695.3 ROSACEA 07/01/2011 V77.1 DIABETES SCREENING 07/01/2011 477.0 ALLERGIC RHINITIS DUE TO POLLEN 07/01/2011 564.1 IRRITABLE BOWEL SYNDROME 07/01/2011 695.3 ROSACEA 07/01/2011 V77.1 DIABETES SCREENING 07/01/2011 477.0 ALLERGIC RHINITIS DUE TO POLLEN 07/01/2011 564.1 IRRITABLE BOWEL SYNDROME 07/01/2011 695.3 ROSACEA 07/01/2011 V77.1 DIABETES SCREENING 07/01/2011 477.0 ALLERGIC RHINITIS DUE TO POLLEN 07/01/2011 564.1 IRRITABLE BOWEL SYNDROME 07/01/2011 695.3 ROSACEA 07/01/2011 V77.1 DIABETES SCREENING 07/01/2011 RAHUL ZHU APRN R 477.0 ALLERGIC RHINITIS DUE TO POLLEN 07/01/2011 RAHUL ZHU APRN R 564.1 IRRITABLE BOWEL SYNDROME 07/01/2011 RAHUL ZHU APRN R 695.3 ROSACEA 07/01/2011 RAHUL ZHU APRN R V77.1 DIABETES SCREENING 07/01/2011 BELTRAN DO, JULIET K 477.0 ALLERGIC RHINITIS DUE TO POLLEN 07/01/2011 BELTRAN DO, JULIET K 564.1 IRRITABLE BOWEL SYNDROME 07/01/2011 BELTRAN DO, JULIET K 695.3 ROSACEA 07/01/2011 BELTRAN DO, JULIET K V77.1 DIABETES SCREENING 07/01/2011 477.0 ALLERGIC RHINITIS DUE TO POLLEN 07/01/2011 564.1 IRRITABLE BOWEL SYNDROME 07/01/2011 695.3 ROSACEA 07/01/2011 V77.1 DIABETES SCREENING 07/01/2011 RAHUL ZHU APRN R 477.0 ALLERGIC RHINITIS DUE TO POLLEN 07/01/2011 SHANNON ZHU APRNIA R 564.1 IRRITABLE BOWEL SYNDROME 07/01/2011 AUDRA DIAZ RAHUL R 695.3 ROSACEA 07/01/2011 AUDRA LEASE BROKER, RAHUL R V77.1 DIABETES SCREENING 07/01/2011 BELTRAN DO, JULIET K 477.0 ALLERGIC RHINITIS DUE TO POLLEN 07/01/2011 BELTRAN DO, JULIET K 564.1 IRRITABLE BOWEL SYNDROME 07/01/2011 BELTRAN DO, JULIET K 695.3 ROSACEA 07/01/2011 BELTRAN DO, JULIET K V77.1 DIABETES SCREENING 07/01/2011 477.0 ALLERGIC RHINITIS DUE TO POLLEN 07/01/2011 564.1 IRRITABLE BOWEL SYNDROME 07/01/2011 695.3 ROSACEA 07/01/2011 V77.1 DIABETES SCREENING 07/01/2011 477.0 ALLERGIC RHINITIS DUE TO POLLEN 07/01/2011 564.1 IRRITABLE BOWEL SYNDROME 07/01/2011 695.3 ROSACEA 07/01/2011 V77.1 DIABETES SCREENING 07/01/2011 477.0 ALLERGIC RHINITIS DUE TO POLLEN 07/01/2011 564.1 IRRITABLE BOWEL SYNDROME 07/01/2011 695.3 ROSACEA 07/01/2011 V77.1 DIABETES SCREENING 07/01/2011 BELTRAN DO, JULIET K 477.0 ALLERGIC RHINITIS DUE TO POLLEN 07/01/2011 BELTRAN DO, JULIET K 564.1 IRRITABLE BOWEL SYNDROME 07/01/2011 BELTRAN DO, JULIET K 695.3 ROSACEA 07/01/2011 BELTRAN DO, JULIET K V77.1 DIABETES SCREENING 07/01/2011 SHANNON ZHU APRNIA R 477.0 ALLERGIC RHINITIS DUE TO POLLEN 07/01/2011 AUDRA DIAZ RAHUL R 564.1 IRRITABLE BOWEL SYNDROME 07/01/2011 AUDRA LEASE BROKER RAHUL R 695.3 ROSACEA 07/01/2011 ZHU LEASE BROKER RAHUL R V77.1 DIABETES SCREENING 07/01/2011 BELTRAN DO, JULIET K 477.0 ALLERGIC RHINITIS DUE TO POLLEN 07/01/2011 BELTRAN DO, JULIET K 564.1 IRRITABLE BOWEL SYNDROME 07/01/2011 BELTRAN DO, JULIET K 695.3 ROSACEA 07/01/2011 BELTRAN DO, JULIET K V77.1 DIABETES SCREENING 07/01/2011 BELTRAN DO, JULIET K 477.0 ALLERGIC RHINITIS DUE TO POLLEN 07/01/2011 BELTRAN DO, JULIET K 564.1 IRRITABLE BOWEL SYNDROME 07/01/2011 BELTRAN DO, JULIET K 695.3 ROSACEA 07/01/2011 BELTRAN DO, JULIET K V77.1 DIABETES SCREENING 07/01/2011 BELTRAN DO, JULIET K 477.0 ALLERGIC RHINITIS DUE TO POLLEN 07/01/2011 BELTRAN DO, JULIET K 564.1 IRRITABLE BOWEL SYNDROME 07/01/2011 BELTRAN DO, JULIET K 695.3 ROSACEA 07/01/2011 BELTRAN DO, JULIET K V77.1 DIABETES SCREENING 07/01/2011 BELTRAN DO, JULIET K 477.0 ALLERGIC RHINITIS DUE TO POLLEN 07/01/2011 BELTRAN DO, JULIET K 564.1 IRRITABLE BOWEL SYNDROME 07/01/2011 BELTRAN DO, JULIET K 695.3 ROSACEA 07/01/2011 BELTRAN DO, JULIET K V77.1 DIABETES SCREENING 07/01/2011 BELTRAN DO, JULIET K 477.0 ALLERGIC RHINITIS DUE TO POLLEN 07/01/2011 BELTRAN DO, JULIET K 564.1 IRRITABLE BOWEL SYNDROME 07/01/2011 BELTRAN DO, JULIET K 695.3 ROSACEA 07/01/2011 BELTRAN DO, JULIET K V77.1 DIABETES SCREENING 07/01/2011 BELTRAN DO, JULIET K 477.0 ALLERGIC RHINITIS DUE TO POLLEN 07/01/2011 BELTRAN DO, JULIET K 564.1 IRRITABLE BOWEL SYNDROME 07/01/2011 BELTRAN DO, JULIET K 695.3 ROSACEA 07/01/2011 BELTRAN DO, JULIET K V77.1 DIABETES SCREENING 07/01/2011 GRAHAM ESTRELLA, CHRIS N 477.0 ALLERGIC RHINITIS DUE TO POLLEN 07/01/2011 CHRIS STEVENSON MD N 564.1 IRRITABLE BOWEL SYNDROME 07/01/2011 CHRIS STEVENSON MD 695.3 ROSACEA 07/01/2011 CHRIS STEVENSON MD V77.1 DIABETES SCREENING 07/01/2011 BELTRAN DO, JULIET K 477.0 ALLERGIC RHINITIS DUE TO POLLEN 07/01/2011 BELTRAN DO, JULIET K 564.1 IRRITABLE BOWEL SYNDROME 07/01/2011 BELTRAN DO, JULIET K 695.3 ROSACEA 07/01/2011 BELTRAN DO, JULIET K V77.1 DIABETES SCREENING 07/01/2011 BELTRAN DO, JULIET K 477.0 ALLERGIC RHINITIS DUE TO POLLEN 07/01/2011 BELTRAN DO, JULIET K 564.1 IRRITABLE BOWEL SYNDROME 07/01/2011 BELTRAN DO, JULIET K 695.3 ROSACEA 07/01/2011 BELTRAN DO, JULIET K V77.1 DIABETES SCREENING 07/01/2011 BELTRAN DO, JULIET K 477.0 ALLERGIC RHINITIS DUE TO POLLEN 07/01/2011 BELTRAN DO, JULIET K 564.1 IRRITABLE BOWEL SYNDROME 07/01/2011 BELTRAN DO, JULIET K 695.3 ROSACEA 07/01/2011 BELTRAN DO, JULIET K V77.1 DIABETES SCREENING 07/01/2011 BELTRAN DO, JULIET K 477.0 ALLERGIC RHINITIS DUE TO POLLEN 07/01/2011 BELTRAN DO, JULIET K 564.1 IRRITABLE BOWEL SYNDROME 07/01/2011 BELTRAN DO, JULIET K 695.3 ROSACEA 07/01/2011 BELTRAN DO, JULIET K V77.1 DIABETES SCREENING 07/01/2011 BELTRAN DO, JULIET K 477.0 ALLERGIC RHINITIS DUE TO POLLEN 07/01/2011 BELTRAN DO, JULIET K 564.1 IRRITABLE BOWEL SYNDROME 07/01/2011 BELTRAN DO, JULIET K 695.3 ROSACEA 07/01/2011 BELTRAN DO, JULIET K V77.1 DIABETES SCREENING 07/01/2011 BELTRAN DO, JULIET K 477.0 ALLERGIC RHINITIS DUE TO POLLEN 07/01/2011 BELTRAN DO, JULIET K 564.1 IRRITABLE BOWEL SYNDROME 07/01/2011 BELTRAN DO, JULIET K 695.3 ROSACEA 07/01/2011 BELTRAN DO, JULIET K V77.1 DIABETES SCREENING 07/01/2011 BELTRAN DO, JULIET K 477.0 ALLERGIC RHINITIS DUE TO POLLEN 07/01/2011 BELTRAN DO, JULIET K 564.1 IRRITABLE BOWEL SYNDROME 07/01/2011 BELTRAN DO, JULIET K 695.3 ROSACEA 07/01/2011 BELTRAN DO, JULIET K V77.1 DIABETES SCREENING 07/01/2011 BELTRAN DO, JULIET K 477.0 ALLERGIC RHINITIS DUE TO POLLEN 07/01/2011 BELTRAN DO, JULIET K 564.1 IRRITABLE BOWEL SYNDROME 07/01/2011 BELTRAN DO, JULIET K 695.3 ROSACEA 07/01/2011 BELTRAN DO, JULIET K V77.1 DIABETES SCREENING 07/01/2011 BELTRAN DO, JULIET K 477.0 ALLERGIC RHINITIS DUE TO POLLEN 07/01/2011 BELTRAN DO, JULIET K 564.1 IRRITABLE BOWEL SYNDROME 07/01/2011 BELTRAN DO, JULIET K 695.3 ROSACEA 07/01/2011 BELTRAN DO, JULIET K V77.1 DIABETES SCREENING 07/01/2011 BELTRAN DO, JULIET K 477.0 ALLERGIC RHINITIS DUE TO POLLEN 07/01/2011 BELTRAN DO, JULIET K 564.1 IRRITABLE BOWEL SYNDROME 07/01/2011 BELTRAN DO, JULIET K 695.3 ROSACEA 07/01/2011 BELTRAN DO, JULIET K V77.1 DIABETES SCREENING 07/01/2011 BELTRAN DO, JULIET K 477.0 ALLERGIC RHINITIS DUE TO POLLEN 07/01/2011 BELTRAN DO, JULIET K 564.1 IRRITABLE BOWEL SYNDROME 07/01/2011 BELTRAN DO, JULIET K 695.3 ROSACEA 07/01/2011 BELTRAN DO, JULIET K V77.1 DIABETES SCREENING 07/01/2011 BELTRAN DO, JULIET K 477.0 ALLERGIC RHINITIS DUE TO POLLEN 07/01/2011 BLETRAN DO, JULIET K 564.1 IRRITABLE BOWEL SYNDROME 07/01/2011 BELTRAN DO, JULIET K 695.3 ROSACEA 07/01/2011 BELTRAN DO, JULIET K V77.1 DIABETES SCREENING 07/01/2011 BELTRAN DO, JULIET K 477.0 ALLERGIC RHINITIS DUE TO POLLEN 07/01/2011 BELTRAN DO, JULIET K 564.1 IRRITABLE BOWEL SYNDROME 07/01/2011 BELTRAN DO, JULIET K 695.3 ROSACEA 07/01/2011 BELTRAN DO, JULIET K V77.1 DIABETES SCREENING 07/01/2011 GRAHAM ESTRELLA, CHRIS Steiner 477.0 ALLERGIC RHINITIS DUE TO POLLEN 07/01/2011 GRAHAM ESTRELLA, CHRIS Steiner 564.1 IRRITABLE BOWEL SYNDROME 07/01/2011 GRAHAM ESTRELLA, CHRIS Steiner 695.3 ROSACEA 07/01/2011 GRAHAM ESTRELLA, CHRIS Steiner V77.1 DIABETES SCREENING 07/01/2011 BELTRAN DO, JULIET K 477.0 ALLERGIC RHINITIS DUE TO POLLEN 07/01/2011 BELTRAN DO, JULIET K 564.1 IRRITABLE BOWEL SYNDROME 07/01/2011 BELTRAN DO, JULIET K 695.3 ROSACEA 07/01/2011 BELTRAN DO, JULIET K V77.1 DIABETES SCREENING 07/01/2011 BELTRAN DO, JULIET K 477.0 ALLERGIC RHINITIS DUE TO POLLEN 07/01/2011 BELTRAN DO, JULIET K 564.1 IRRITABLE BOWEL SYNDROME 07/01/2011 BELTRAN DO, JULIET K 695.3 ROSACEA 07/01/2011 BELTRAN DO, JULIET K V77.1 DIABETES SCREENING 07/01/2011 BELTRAN DO, JULIET K 477.0 ALLERGIC RHINITIS DUE TO POLLEN 07/01/2011 BELTRAN DO, JULIET K 564.1 IRRITABLE BOWEL SYNDROME 07/01/2011 BELTRAN DO, JULIET K 695.3 ROSACEA 07/01/2011 BELTRAN DO, JULIET K V77.1 DIABETES SCREENING 07/01/2011 BELTRAN DO, JULIET K 477.0 ALLERGIC RHINITIS DUE TO POLLEN 07/01/2011 BELTRAN DO, JULIET K 564.1 IRRITABLE BOWEL SYNDROME 07/01/2011 BELTRAN DO, JULIET K 695.3 ROSACEA 07/01/2011 BELTRAN DO, JULIET K V77.1 DIABETES SCREENING 07/01/2011 BELTRAN DO, JULIET K 477.0 ALLERGIC RHINITIS DUE TO POLLEN 07/01/2011 BELTRAN DO, JULIET K 564.1 IRRITABLE BOWEL SYNDROME 07/01/2011 BELTRAN DO, JULIET K 695.3 ROSACEA 07/01/2011 BELTRAN DO, JULIET K V77.1 DIABETES SCREENING 07/01/2011 BELTRAN DO, JULIET K 477.0 ALLERGIC RHINITIS DUE TO POLLEN 07/01/2011 BELTRAN DO, JULIET K 564.1 IRRITABLE BOWEL SYNDROME 07/01/2011 BELTRAN DO, JULIET K 695.3 ROSACEA 07/01/2011 BELTRAN DO, JULIET K V77.1 DIABETES SCREENING 07/01/2011 GRAHAM ESTRELLA, CHRIS Steiner 477.0 ALLERGIC RHINITIS DUE TO POLLEN 07/01/2011 GRAHAM ESTRELLA, CHRIS Steiner 564.1 IRRITABLE BOWEL SYNDROME 07/01/2011 CHRIS STEVENSON MD 695.3 ROSACEA 07/01/2011 GRAHAM ESTRELLA, CHRIS Steiner V77.1 DIABETES SCREENING 07/01/2011 GRAHAM ESTRELLA, CHRIS N 477.0 ALLERGIC RHINITIS DUE TO POLLEN 07/01/2011 GRAHAM ESTRELLA, CHRIS N 564.1 IRRITABLE BOWEL SYNDROME 07/01/2011 GRAHAM ESTRELLA, CHRIS N 695.3 ROSACEA 07/01/2011 CHRIS STEVENSON MD N V77.1 DIABETES SCREENING 07/01/2011 BELTRAN DO, JULIET K 477.0 ALLERGIC RHINITIS DUE TO POLLEN 07/01/2011 BELTRAN DO, JULIET K 564.1 IRRITABLE BOWEL SYNDROME 07/01/2011 BELTRAN DO, JULIET K 695.3 ROSACEA 07/01/2011 BELTRAN DO, JULIET K V77.1 DIABETES SCREENING 07/01/2011 BELTRAN DO, JULIET K 477.0 ALLERGIC RHINITIS DUE TO POLLEN 07/01/2011 BELTRAN DO, JULIET K 564.1 IRRITABLE BOWEL SYNDROME 07/01/2011 BELTRAN DO, JULIET K 695.3 ROSACEA 07/01/2011 BELTRAN DO, JULIET K V77.1 DIABETES SCREENING 07/01/2011 BELTRAN DO, JULIET K 477.0 ALLERGIC RHINITIS DUE TO POLLEN 07/01/2011 BELTRAN DO, JULIET K 564.1 IRRITABLE BOWEL SYNDROME 07/01/2011 BELTRAN DO, JULIET K 695.3 ROSACEA 07/01/2011 BELTRAN DO, JULIET K V77.1 DIABETES SCREENING 07/01/2011 BELTRAN DO, JULIET K 477.0 ALLERGIC RHINITIS DUE TO POLLEN 07/01/2011 BELTRAN DO, JULIET K 564.1 IRRITABLE BOWEL SYNDROME 07/01/2011 BELTRAN DO, JULIET K 695.3 ROSACEA 07/01/2011 BELTRAN DO, JULIET K V77.1 DIABETES SCREENING 07/01/2011 BELTRAN DO, JULIET K 477.0 ALLERGIC RHINITIS DUE TO POLLEN 07/01/2011 BELTRAN DO, JULIET K 564.1 IRRITABLE BOWEL SYNDROME 07/01/2011 BELTRAN DO, JULIET K 695.3 ROSACEA 07/01/2011 BELTRAN DO, JULIET K V77.1 DIABETES SCREENING 07/01/2011 BELTRAN DO, JULIET K 477.0 ALLERGIC RHINITIS DUE TO POLLEN 07/01/2011 BELTRAN DO, JULIET K 564.1 IRRITABLE BOWEL SYNDROME 07/01/2011 BELTRAN DO, JULIET K 695.3 ROSACEA 07/01/2011 BELTRAN DO, JULIET K V77.1 DIABETES SCREENING 07/01/2011 LUCA DPM, KELLE 477.0 ALLERGIC RHINITIS DUE TO POLLEN 07/01/2011 LUCA DPM, KELLE 564.1 IRRITABLE BOWEL SYNDROME 07/01/2011 LUCA DPM, KELLE 695.3 ROSACEA 07/01/2011 LUCA DPM, KELLE V77.1 DIABETES SCREENING 07/01/2011 ZHU LEASE BROKER, RAHUL R 477.0 ALLERGIC RHINITIS DUE TO POLLEN 07/01/2011 ZHU LEASE BROKER, RAHUL R 564.1 IRRITABLE BOWEL SYNDROME 07/01/2011 ZHU LEASE BROKER, RAHUL R 695.3 ROSACEA 07/01/2011 ZHU LEASE BROKER, RAHUL R V77.1 DIABETES SCREENING 07/01/2011 BELTRAN DO, JULIET K 477.0 ALLERGIC RHINITIS DUE TO POLLEN 07/01/2011 BELTRAN DO, JULIET K 564.1 IRRITABLE BOWEL SYNDROME 07/01/2011 BELTRAN DO, JULIET K 695.3 ROSACEA 07/01/2011 BELTRAN DO, JULIET K V77.1 DIABETES SCREENING 07/01/2011 BELTRAN DO, JULIET K 477.0 ALLERGIC RHINITIS DUE TO POLLEN 07/01/2011 BELTRAN DO, JULIET K 564.1 IRRITABLE BOWEL SYNDROME 07/01/2011 BELTRAN DO, JULIET K 695.3 ROSACEA 07/01/2011 BELTRAN DO, JULIET K V77.1 DIABETES SCREENING 07/01/2011 BELTRAN DO, JULIET K 477.0 ALLERGIC RHINITIS DUE TO POLLEN 07/01/2011 BELTRAN DO, JULIET K 564.1 IRRITABLE BOWEL SYNDROME 07/01/2011 BELTRAN DO, JULIET K 695.3 ROSACEA 07/01/2011 BELTRAN DO, JULIET K V77.1 DIABETES SCREENING 07/01/2011 BELTRAN DO, JULIET K 477.0 ALLERGIC RHINITIS DUE TO POLLEN 07/01/2011 BELTRAN DO, JULIET K 564.1 IRRITABLE BOWEL SYNDROME 07/01/2011 BELTRAN DO, JULIET K 695.3 ROSACEA 07/01/2011 BELTRAN DO, JULIET K V77.1 DIABETES SCREENING 07/01/2011 BELTRAN DO, JULIET K 477.0 ALLERGIC RHINITIS DUE TO POLLEN 07/01/2011 BELTRAN DO, JULIET K 564.1 IRRITABLE BOWEL SYNDROME 07/01/2011 BELTRAN DO, JULIET K 695.3 ROSACEA 07/01/2011 BELTRAN DO, JULIET K V77.1 DIABETES SCREENING 07/01/2011 BELTRAN DO, JULIET K 477.0 ALLERGIC RHINITIS DUE TO POLLEN 07/01/2011 BELTRAN DO, JULIET K 564.1 IRRITABLE BOWEL SYNDROME 07/01/2011 BELTRAN DO, JULIET K 695.3 ROSACEA 07/01/2011 BELTRAN DO, JULIET K V77.1 DIABETES SCREENING 07/01/2011 CHRIS STEVENSON MD 477.0 ALLERGIC RHINITIS DUE TO POLLEN 07/01/2011 CHRIS STEVENSON MD 564.1 IRRITABLE BOWEL SYNDROME 07/01/2011 CHRIS STEVENSON MD 695.3 ROSACEA 07/01/2011 CHRIS STEVENSON MD V77.1 DIABETES SCREENING 07/01/2011 CHRIS STEVENSON MD 477.0 ALLERGIC RHINITIS DUE TO POLLEN 07/01/2011 CHRIS STEVENSON MD 564.1 IRRITABLE BOWEL SYNDROME 07/01/2011 CHRIS STEVENSON MD 695.3 ROSACEA 07/01/2011 CHRIS STEVENSON MD V77.1 DIABETES SCREENING 07/01/2011 BELTRAN DO, JULIET K 477.0 ALLERGIC RHINITIS DUE TO POLLEN 07/01/2011 BELTRAN DO, JULIET K 564.1 IRRITABLE BOWEL SYNDROME 07/01/2011 BELTRAN DO, JULIET K 695.3 ROSACEA 07/01/2011 BELTRAN DO, JULIET K V77.1 DIABETES SCREENING 07/01/2011 BELTRAN DO, JULIET K 477.0 ALLERGIC RHINITIS DUE TO POLLEN 07/01/2011 BELTRAN DO, JULIET K 564.1 IRRITABLE BOWEL SYNDROME 07/01/2011 BELTRAN DO, JULIET K 695.3 ROSACEA 07/01/2011 BELTRAN DO, JULIET K V77.1 DIABETES SCREENING 07/01/2011 CHRIS STEVENSON MD N 477.0 ALLERGIC RHINITIS DUE TO POLLEN 07/01/2011 CHRIS STEVENSON MD N 564.1 IRRITABLE BOWEL SYNDROME 07/01/2011 CHRIS STEVENSON MD 695.3 ROSACEA 07/01/2011 CHRIS STEVENSON MD N V77.1 DIABETES SCREENING 07/01/2011 CHRIS STEVENSON MD N 477.0 ALLERGIC RHINITIS DUE TO POLLEN 07/01/2011 CHRIS STEVENSON MD N 564.1 IRRITABLE BOWEL SYNDROME 07/01/2011 CHRIS STEVENSON MD N 695.3 ROSACEA 07/01/2011 CHRIS STEVENSON MD V77.1 DIABETES SCREENING 07/01/2011 MARIBEL BELTRAN DOA K 477.0 ALLERGIC RHINITIS DUE TO POLLEN 07/01/2011 BELTRAN DO, JULIET K 564.1 IRRITABLE BOWEL SYNDROME 07/01/2011 BELTRAN MARIBEL WATTERSA K 695.3 ROSACEA 07/01/2011 BELTRAN DO JULIET K V77.1 DIABETES SCREENING 07/01/2011 CHRIS STEVENSON MD N 477.0 ALLERGIC RHINITIS DUE TO POLLEN 07/01/2011 CHRIS STEVENSON MD 564.1 IRRITABLE BOWEL SYNDROME 07/01/2011 CHRIS STEVENSON MD N 695.3 ROSACEA 07/01/2011 CHRIS STEVENSON MD N V77.1 DIABETES SCREENING 07/01/2011 BELTRAN DO, JULIET K 477.0 ALLERGIC RHINITIS DUE TO POLLEN 07/01/2011 BELTRAN DO, JULIET K 564.1 IRRITABLE BOWEL SYNDROME 07/01/2011 BELTRAN DO JULIET K 695.3 ROSACEA 07/01/2011 BELTRAN DO, JULIET K V77.1 DIABETES SCREENING 09/22/2011 BELTRAN DO, JULIET K V65.3 COUNSELING- OBESITY (DIET) 09/22/2011 V65.3 COUNSELING- OBESITY (DIET) 09/22/2011 V65.3 COUNSELING- OBESITY (DIET) 09/22/2011 BRIDGETT AGUILERA APRN V65.3 COUNSELING- OBESITY (DIET) 09/22/2011 V65.3 COUNSELING- OBESITY (DIET) 09/22/2011 V65.3 COUNSELING- OBESITY (DIET) 09/22/2011 V65.3 COUNSELING- OBESITY (DIET) 09/22/2011 V65.3 COUNSELING- OBESITY (DIET) 09/22/2011 ZHU LEASE BROKER, RAHUL R V65.3 COUNSELING- OBESITY (DIET) 09/22/2011 BELTRAN DO, JULIET K V65.3 COUNSELING- OBESITY (DIET) 09/22/2011 V65.3 COUNSELING- OBESITY (DIET) 09/22/2011 RAHUL ZHU APRN R V65.3 COUNSELING- OBESITY (DIET) 09/22/2011 BELTRAN DO, JULIET K V65.3 COUNSELING- OBESITY (DIET) 09/22/2011 V65.3 COUNSELING- OBESITY (DIET) 09/22/2011 V65.3 COUNSELING- OBESITY (DIET) 09/22/2011 V65.3 COUNSELING- OBESITY (DIET) 09/22/2011 BELTRAN DO, JULIET K V65.3 COUNSELING- OBESITY (DIET) 09/22/2011 RAHUL ZHU APRN R V65.3 COUNSELING- OBESITY (DIET) 09/22/2011 BELTRAN DO, JULIET K V65.3 COUNSELING- OBESITY (DIET) 09/22/2011 BELTRAN DO, JULIET K V65.3 COUNSELING- OBESITY (DIET) 09/22/2011 BELTRAN DO, JULIET K V65.3 COUNSELING- OBESITY (DIET) 09/22/2011 BELTRAN DO, JULIET K V65.3 COUNSELING- OBESITY (DIET) 09/22/2011 BELTRAN DO, JULIET K V65.3 COUNSELING- OBESITY (DIET) 09/22/2011 BELTRAN DO, JULIET K V65.3 COUNSELING- OBESITY (DIET) 09/22/2011 CHRIS STEVENSON MD V65.3 COUNSELING- OBESITY (DIET) 09/22/2011 BELTRAN DO, JULIET K V65.3 COUNSELING- OBESITY (DIET) 09/22/2011 BELTRAN DO, JULIET K V65.3 COUNSELING- OBESITY (DIET) 09/22/2011 BELTRAN DO, JULIET K V65.3 COUNSELING- OBESITY (DIET) 09/22/2011 BELTRAN DO, JULIET K V65.3 COUNSELING- OBESITY (DIET) 09/22/2011 BELTRAN DO, JULIET K V65.3 COUNSELING- OBESITY (DIET) 09/22/2011 BELTRAN DO, JULIET K V65.3 COUNSELING- OBESITY (DIET) 09/22/2011 BELTRAN DO, JULIET K V65.3 COUNSELING- OBESITY (DIET) 09/22/2011 BELTRAN DO, JULIET K V65.3 COUNSELING- OBESITY (DIET) 09/22/2011 BELTRAN DO, JULIET K V65.3 COUNSELING- OBESITY (DIET) 09/22/2011 BELTRAN DO, JULIET K V65.3 COUNSELING- OBESITY (DIET) 09/22/2011 BELTRAN DO, JULIET K V65.3 COUNSELING- OBESITY (DIET) 09/22/2011 BELTRAN DO, JULIET K V65.3 COUNSELING- OBESITY (DIET) 09/22/2011 BELTRAN DO, JULIET K V65.3 COUNSELING- OBESITY (DIET) 09/22/2011 CHRIS STEVENSON MD V65.3 COUNSELING- OBESITY (DIET) 09/22/2011 BELTRAN DO, JULIET K V65.3 COUNSELING- OBESITY (DIET) 09/22/2011 BELTRAN DO, JULIET K V65.3 COUNSELING- OBESITY (DIET) 09/22/2011 BELTRAN DO, JULIET K V65.3 COUNSELING- OBESITY (DIET) 09/22/2011 BELTRAN DO, JULIET K V65.3 COUNSELING- OBESITY (DIET) 09/22/2011 BELTRAN DO, JULIET K V65.3 COUNSELING- OBESITY (DIET) 09/22/2011 BELTRAN DO, JULIET K V65.3 COUNSELING- OBESITY (DIET) 09/22/2011 CHRIS STEVENSON MD V65.3 COUNSELING- OBESITY (DIET) 09/22/2011 CHRIS STEVENSON MD V65.3 COUNSELING- OBESITY (DIET) 09/22/2011 BELTRAN DO, JULIET K V65.3 COUNSELING- OBESITY (DIET) 09/22/2011 BELTRAN DO, JULIET K V65.3 COUNSELING- OBESITY (DIET) 09/22/2011 BELTRAN DO, JULIET K V65.3 COUNSELING- OBESITY (DIET) 09/22/2011 BELTRAN DO, JULIET K V65.3 COUNSELING- OBESITY (DIET) 09/22/2011 BELTRAN DO, JULIET K V65.3 COUNSELING- OBESITY (DIET) 09/22/2011 BELTRAN DO, JULIET K V65.3 COUNSELING- OBESITY (DIET) 09/22/2011 KELLE DIAZ DPM V65.3 COUNSELING- OBESITY (DIET) 09/22/2011 RAHUL ZHU APRN V65.3 COUNSELING- OBESITY (DIET) 09/22/2011 BELTRAN DO, JULIET K V65.3 COUNSELING- OBESITY (DIET) 09/22/2011 BELTRAN DO, JULIET K V65.3 COUNSELING- OBESITY (DIET) 09/22/2011 JULIET BELTRAN DO K V65.3 COUNSELING- OBESITY (DIET) 09/22/2011 JULIET BELTRAN DO K V65.3 COUNSELING- OBESITY (DIET) 09/22/2011 BELTRAN DO, JULIET K V65.3 COUNSELING- OBESITY (DIET) 09/22/2011 MARIBEL BELTRAN DOA K V65.3 COUNSELING- OBESITY (DIET) 09/22/2011 CHRIS STEVENSON MD V65.3 COUNSELING- OBESITY (DIET) 09/22/2011 CHRIS STEVENSON MD V65.3 COUNSELING- OBESITY (DIET) 09/22/2011 JULIET BELTRAN DO K V65.3 COUNSELING- OBESITY (DIET) 09/22/2011 MARIBEL BELTRAN DOA K V65.3 COUNSELING- OBESITY (DIET) 09/22/2011 CHRIS STEVENSON MD V65.3 COUNSELING- OBESITY (DIET) 09/22/2011 CHRIS STEVENSON MD V65.3 COUNSELING- OBESITY (DIET) 09/22/2011 JULIET BELTRAN DO V65.3 COUNSELING- OBESITY (DIET) 09/22/2011 CHRIS STEVENSON MD V65.3 COUNSELING- OBESITY (DIET) 09/22/2011 JULIET BELTRAN DO K V65.3 COUNSELING- OBESITY (DIET) 11/13/2011 JULIET BELTRAN DO 786.09 RESPIRATORY ABNORMALITY OTHER 11/13/2011 786.09 RESPIRATORY ABNORMALITY OTHER 11/13/2011 786.09 RESPIRATORY ABNORMALITY OTHER 11/13/2011 BRIDGETT AGUILERA APRN 786.09 RESPIRATORY ABNORMALITY OTHER 11/13/2011 786.09 Respiratory Abnormality Other 11/13/2011 786.09 Respiratory Abnormality Other 11/13/2011 786.09 Respiratory Abnormality Other 11/13/2011 786.09 Respiratory Abnormality Other 11/13/2011 RAHUL ZHU APRN R 786.09 Respiratory Abnormality Other 11/13/2011 JULIET BELTRAN DO 786.09 Respiratory Abnormality Other 11/13/2011 786.09 Respiratory Abnormality Other 11/13/2011 RAHUL ZHU APRN 786.09 Respiratory Abnormality Other 11/13/2011 JULIET BELTRAN DO 786.09 Respiratory Abnormality Other 11/13/2011 786.09 Respiratory Abnormality Other 11/13/2011 786.09 Respiratory Abnormality Other 11/13/2011 786.09 Respiratory Abnormality Other 11/13/2011 BELTRAN DO, JULIET K 786.09 Respiratory Abnormality Other 11/13/2011 AUDRA DIAZ RAHUL R 786.09 Respiratory Abnormality Other 11/13/2011 BELTRAN DO, JULIET K 786.09 Respiratory Abnormality Other 11/13/2011 BELTRAN DO, JULIET K 786.09 Respiratory Abnormality Other 11/13/2011 BELTRAN DO, JULIET K 786.09 Respiratory Abnormality Other 11/13/2011 BELTRAN DO, JULIET K 786.09 Respiratory Abnormality Other 11/13/2011 BELTRAN DO, JULIET K 786.09 Respiratory Abnormality Other 11/13/2011 BELTRAN DO, JULIET K 786.09 Respiratory Abnormality Other 11/13/2011 CHRIS STEVENSON MD 786.09 Respiratory Abnormality Other 11/13/2011 BELTRAN DO, JULIET K 786.09 Respiratory Abnormality Other 11/13/2011 BELTRAN DO, JULIET K 786.09 Respiratory Abnormality Other 11/13/2011 BELTRAN DO, JULIET K 786.09 Respiratory Abnormality Other 11/13/2011 BELTRAN DO, JULIET K 786.09 Respiratory Abnormality Other 11/13/2011 BELTRAN DO, JULIET K 786.09 Respiratory Abnormality Other 11/13/2011 BELTRAN DO, JULIET K 786.09 Respiratory Abnormality Other 11/13/2011 BELTRAN DO, JULIET K 786.09 Respiratory Abnormality Other 11/13/2011 BELTRAN DO, JULIET K 786.09 Respiratory Abnormality Other 11/13/2011 BELTRAN DO, JULIET K 786.09 Respiratory Abnormality Other 11/13/2011 BELTRAN DO, JULIET K 786.09 Respiratory Abnormality Other 11/13/2011 BELTRAN DO, JULIET K 786.09 Respiratory Abnormality Other 11/13/2011 BELTRAN DO, JULIET K 786.09 Respiratory Abnormality Other 11/13/2011 BELTRAN DO, JULIET K 786.09 Respiratory Abnormality Other 11/13/2011 CHRIS STEVENSON MD 786.09 Respiratory Abnormality Other 11/13/2011 BELTRAN DO, JULIET K 786.09 Respiratory Abnormality Other 11/13/2011 BELTRAN DO, JULIET K 786.09 Respiratory Abnormality Other 11/13/2011 BELTRAN DO, JULIET K 786.09 Respiratory Abnormality Other 11/13/2011 BELTRAN DO, JULIET K 786.09 Respiratory Abnormality Other 11/13/2011 BELTRAN DO, JULIET K 786.09 Respiratory Abnormality Other 11/13/2011 BELTRAN DO, JULIET K 786.09 Respiratory Abnormality Other 11/13/2011 CHRIS STEVENSON MD N 786.09 Respiratory Abnormality Other 11/13/2011 CHRIS STEVENSON MD 786.09 Respiratory Abnormality Other 11/13/2011 BELTRAN DO, JULIET K 786.09 Respiratory Abnormality Other 11/13/2011 BELTRAN DO, JULIET K 786.09 Respiratory Abnormality Other 11/13/2011 BELTRAN DO, JULIET K 786.09 Respiratory Abnormality Other 11/13/2011 BELTRAN DO, JULIET K 786.09 Respiratory Abnormality Other 11/13/2011 BELTRAN DO, JULIET K 786.09 Respiratory Abnormality Other 11/13/2011 EBLTRAN DO, JULIET K 786.09 Respiratory Abnormality Other 11/13/2011 LUCA DPM, KELLE 786.09 Respiratory Abnormality Other 11/13/2011 RAHUL ZHU APRN R 786.09 Respiratory Abnormality Other 11/13/2011 BELTRAN DO, JULIET K 786.09 Respiratory Abnormality Other 11/13/2011 BELTRAN DO, JULIET K 786.09 Respiratory Abnormality Other 11/13/2011 BELTRAN DO, JULIET K 786.09 Respiratory Abnormality Other 11/13/2011 BELTRAN DO, JULIET K 786.09 Respiratory Abnormality Other 11/13/2011 BELTRAN DO, JULIET K 786.09 Respiratory Abnormality Other 11/13/2011 BELTRAN DO, JULIET K 786.09 Respiratory Abnormality Other 11/13/2011 CHRIS STEVENSON MD N 786.09 Respiratory Abnormality Other 11/13/2011 CHRIS STEVENSON MD 786.09 Respiratory Abnormality Other 11/13/2011 BELTRAN DO, JULIET K 786.09 Respiratory Abnormality Other 11/13/2011 BELTRAN DO, JULIET K 786.09 Respiratory Abnormality Other 11/13/2011 CHRIS STEVENSON MD N 786.09 Respiratory Abnormality Other 11/13/2011 CHRIS STEVENSON MD 786.09 Respiratory Abnormality Other 11/13/2011 BELTRAN DO, JULIET K 786.09 Respiratory Abnormality Other 11/13/2011 CHRIS STEVENSON MD 786.09 Respiratory Abnormality Other 11/13/2011 BELTRAN DO, JULIET K 786.09 Respiratory Abnormality Other 01/14/2012 BELTRAN DO, JULIET K 682.9 CELLULITIS AND ABSCESS OF UNSPECIFIED SITES 01/14/2012 BELTRAN DO, JULIET K 782.3 EDEMA 01/14/2012 682.9 CELLULITIS AND ABSCESS OF UNSPECIFIED SITES 01/14/2012 782.3 EDEMA 01/14/2012 682.9 CELLULITIS AND ABSCESS OF UNSPECIFIED SITES 01/14/2012 782.3 EDEMA 01/14/2012 BRIDGETT AGUILERA APRN S 682.9 CELLULITIS AND ABSCESS OF UNSPECIFIED SITES 01/14/2012 WESTON AGUILERA APRNA S 782.3 EDEMA 01/14/2012 682.9 Cellulitis And Abscess Of Unspecified Sites 01/14/2012 782.3 Edema 01/14/2012 682.9 Cellulitis And Abscess Of Unspecified Sites 01/14/2012 782.3 Edema 01/14/2012 682.9 Cellulitis And Abscess Of Unspecified Sites 01/14/2012 782.3 Edema 01/14/2012 682.9 Cellulitis And Abscess Of Unspecified Sites 01/14/2012 782.3 Edema 01/14/2012 RAHUL ZHU APRN R 682.9 Cellulitis And Abscess Of Unspecified Sites 01/14/2012 SHANNON ZHU APRNIA R 782.3 Edema 01/14/2012 BELTRAN DO JULIET K 682.9 Cellulitis And Abscess Of Unspecified Sites 01/14/2012 BELTRAN DO JULIET K 782.3 Edema 01/14/2012 682.9 Cellulitis And Abscess Of Unspecified Sites 01/14/2012 782.3 Edema 01/14/2012 SHANNON ZHU APRNIA R 682.9 Cellulitis And Abscess Of Unspecified Sites 01/14/2012 RAHUL ZHU APRN R 782.3 Edema 01/14/2012 BELTRAN DO JULIET K 682.9 Cellulitis And Abscess Of Unspecified Sites 01/14/2012 BELTRAN DO, JULIET K 782.3 Edema 01/14/2012 682.9 Cellulitis And Abscess Of Unspecified Sites 01/14/2012 782.3 Edema 01/14/2012 682.9 Cellulitis And Abscess Of Unspecified Sites 01/14/2012 782.3 Edema 01/14/2012 682.9 Cellulitis And Abscess Of Unspecified Sites 01/14/2012 782.3 Edema 01/14/2012 BELTRAN DO JULIET K 682.9 Cellulitis And Abscess Of Unspecified Sites 01/14/2012 BELTRAN DO, JULIET K 782.3 Edema 01/14/2012 ZHU LEASE BROKER, RAHUL R 682.9 Cellulitis And Abscess Of Unspecified Sites 01/14/2012 ZHU LEASE BROKER, RAHUL R 782.3 Edema 01/14/2012 BELTRAN DO, JULIET K 682.9 Cellulitis And Abscess Of Unspecified Sites 01/14/2012 BELTRAN DO, JULIET K 782.3 Edema 01/14/2012 BELTRAN DO, JULIET K 682.9 Cellulitis And Abscess Of Unspecified Sites 01/14/2012 BELTRAN DO, JULIET K 782.3 Edema 01/14/2012 BELTRAN DO, JULIET K 682.9 Cellulitis And Abscess Of Unspecified Sites 01/14/2012 BELTRAN DO, JULIET K 782.3 Edema 01/14/2012 BELTRAN DO, JULIET K 682.9 Cellulitis And Abscess Of Unspecified Sites 01/14/2012 BELTRAN DO, JULIET K 782.3 Edema 01/14/2012 BELTRAN DO, JULIET K 682.9 Cellulitis And Abscess Of Unspecified Sites 01/14/2012 BELTRAN DO, JULIET K 782.3 Edema 01/14/2012 BELTRAN DO, JULIET K 682.9 Cellulitis And Abscess Of Unspecified Sites 01/14/2012 BELTRAN DO, JULIET K 782.3 Edema 01/14/2012 GRAHAM ESTRELLA, CHRIS N 682.9 Cellulitis And Abscess Of Unspecified Sites 01/14/2012 GRAHAM ESTRELLA, CHRIS N 782.3 Edema 01/14/2012 BELTRAN DO, JULIET K 682.9 Cellulitis And Abscess Of Unspecified Sites 01/14/2012 BELTRAN DO, JULIET K 782.3 Edema 01/14/2012 BELTRAN DO, JULIET K 682.9 Cellulitis And Abscess Of Unspecified Sites 01/14/2012 BELTRAN DO, JULIET K 782.3 Edema 01/14/2012 BELTRAN DO, JULIET K 682.9 Cellulitis And Abscess Of Unspecified Sites 01/14/2012 BELTRAN DO, JULIET K 782.3 Edema 01/14/2012 BELTRAN DO, JULIET K 682.9 Cellulitis And Abscess Of Unspecified Sites 01/14/2012 BELTRAN DO, JULIET K 782.3 Edema 01/14/2012 BELTRAN DO, JULIET K 682.9 Cellulitis And Abscess Of Unspecified Sites 01/14/2012 BELTRAN DO, JULIET K 782.3 Edema 01/14/2012 BELTRAN DO, JULIET K 682.9 Cellulitis And Abscess Of Unspecified Sites 01/14/2012 BELTRAN DO, JULIET K 782.3 Edema 01/14/2012 BELTRAN DO, JULIET K 682.9 Cellulitis And Abscess Of Unspecified Sites 01/14/2012 BELTRAN DO, JULIET K 782.3 Edema 01/14/2012 BELTRAN DO, JULIET K 682.9 Cellulitis And Abscess Of Unspecified Sites 01/14/2012 BELTRAN DO, JULEIT K 782.3 Edema 01/14/2012 BELTRAN DO, JULIET K 682.9 Cellulitis And Abscess Of Unspecified Sites 01/14/2012 BELTRAN DO, JULIET K 782.3 Edema 01/14/2012 BELTRAN DO, JULIET K 682.9 Cellulitis And Abscess Of Unspecified Sites 01/14/2012 BELTRAN DO, JULIET K 782.3 Edema 01/14/2012 BELTRAN DO, JULIET K 682.9 Cellulitis And Abscess Of Unspecified Sites 01/14/2012 BELTRAN DO, JULIET K 782.3 Edema 01/14/2012 BELTRAN DO, JULIET K 682.9 Cellulitis And Abscess Of Unspecified Sites 01/14/2012 BELTRAN DO, JULIET K 782.3 Edema 01/14/2012 BELTRAN DO, JULIET K 682.9 Cellulitis And Abscess Of Unspecified Sites 01/14/2012 BELTRAN DO, JULIET K 782.3 Edema 01/14/2012 CHRIS STEVENSON MD 682.9 Cellulitis And Abscess Of Unspecified Sites 01/14/2012 CHRIS STEVENSON MD N 782.3 Edema 01/14/2012 BELTRAN DO, JULIET K 682.9 Cellulitis And Abscess Of Unspecified Sites 01/14/2012 BELTRAN DO, JULIET K 782.3 Edema 01/14/2012 BELTRAN DO, JULIET K 682.9 Cellulitis And Abscess Of Unspecified Sites 01/14/2012 BELTRAN DO, JULIET K 782.3 Edema 01/14/2012 BELTRAN DO, JULIET K 682.9 Cellulitis And Abscess Of Unspecified Sites 01/14/2012 BELTRAN DO, JULIET K 782.3 Edema 01/14/2012 BELTRAN DO, JULIET K 682.9 Cellulitis And Abscess Of Unspecified Sites 01/14/2012 BELTRAN DO, JULIET K 782.3 Edema 01/14/2012 BELTRAN DO, JULIET K 682.9 Cellulitis And Abscess Of Unspecified Sites 01/14/2012 BELTRAN DO, JULIET K 782.3 Edema 01/14/2012 BELTRAN DO, JULIET K 682.9 Cellulitis And Abscess Of Unspecified Sites 01/14/2012 BELTRAN DO, JULIET K 782.3 Edema 01/14/2012 GRAHAM ESTRELLA, CHRIS N 682.9 Cellulitis And Abscess Of Unspecified Sites 01/14/2012 GRAHAM ESTRELLA, CHRIS N 782.3 Edema 01/14/2012 GRAHAM ESTRELLA, CHRIS N 682.9 Cellulitis And Abscess Of Unspecified Sites 01/14/2012 GRAHAM ESTRELLA, CHRIS N 782.3 Edema 01/14/2012 BELTRAN DO, JULIET K 682.9 Cellulitis And Abscess Of Unspecified Sites 01/14/2012 BELTRAN DO, JULIET K 782.3 Edema 01/14/2012 BELTRAN DO, JULIET K 682.9 Cellulitis And Abscess Of Unspecified Sites 01/14/2012 BELTRAN DO, JULIET K 782.3 Edema 01/14/2012 BELTRAN DO, JULIET K 682.9 Cellulitis And Abscess Of Unspecified Sites 01/14/2012 BELTRAN DO, JULIET K 782.3 Edema 01/14/2012 BELTRAN DO, JULIET K 682.9 Cellulitis And Abscess Of Unspecified Sites 01/14/2012 BELTRAN DO, JULIET K 782.3 Edema 01/14/2012 BELTRAN DO, JULIET K 682.9 Cellulitis And Abscess Of Unspecified Sites 01/14/2012 BELTRAN DO, JULIET K 782.3 Edema 01/14/2012 BELTRAN DO, JULIET K 682.9 Cellulitis And Abscess Of Unspecified Sites 01/14/2012 BELTRAN DO, JULIET K 782.3 Edema 01/14/2012 LUCA DPM, KELLE 682.9 Cellulitis And Abscess Of Unspecified Sites 01/14/2012 LUCA DPM, KELLE 782.3 Edema 01/14/2012 AUDRA LEASE BROKER, RAHUL R 682.9 Cellulitis And Abscess Of Unspecified Sites 01/14/2012 RAHUL ZHU APRN R 782.3 Edema 01/14/2012 BELTRAN DO, JULIET K 682.9 Cellulitis And Abscess Of Unspecified Sites 01/14/2012 BELTRAN DO, JULIET K 782.3 Edema 01/14/2012 BELTRAN DO, JULIET K 682.9 Cellulitis And Abscess Of Unspecified Sites 01/14/2012 BELTRAN DO, JULIET K 782.3 Edema 01/14/2012 BELTRAN DO, JULIET K 682.9 Cellulitis And Abscess Of Unspecified Sites 01/14/2012 BELTRAN DO, JULIET K 782.3 Edema 01/14/2012 BELTRAN DO, JULIET K 682.9 Cellulitis And Abscess Of Unspecified Sites 01/14/2012 BELTRAN DO, JULIET K 782.3 Edema 01/14/2012 BELTRAN DO, JULIET K 682.9 Cellulitis And Abscess Of Unspecified Sites 01/14/2012 BELTRAN DO, JULIET K 782.3 Edema 01/14/2012 BELTRAN DO, JULIET K 682.9 Cellulitis And Abscess Of Unspecified Sites 01/14/2012 BELTRAN DO, JULIET K 782.3 Edema 01/14/2012 CHRIS STEVENSON MD N 682.9 Cellulitis And Abscess Of Unspecified Sites 01/14/2012 CHRIS STEVENSON MD N 782.3 Edema 01/14/2012 CHRIS STEVENSON MD N 682.9 Cellulitis And Abscess Of Unspecified Sites 01/14/2012 CHRIS STEVENSON MD N 782.3 Edema 01/14/2012 BELTRAN DO, JULIET K 682.9 Cellulitis And Abscess Of Unspecified Sites 01/14/2012 BELTRAN DO, JULIET K 782.3 Edema 01/14/2012 BELTRAN DO, JULIET K 682.9 Cellulitis And Abscess Of Unspecified Sites 01/14/2012 BELTRAN DO, JULIET K 782.3 Edema 01/14/2012 CHRIS STEVENSON MD N 682.9 Cellulitis And Abscess Of Unspecified Sites 01/14/2012 CHRIS STEVENSON MD N 782.3 Edema 01/14/2012 CHRIS STEVENSON MD N 682.9 Cellulitis And Abscess Of Unspecified Sites 01/14/2012 CHRIS STEVENSON MD N 782.3 Edema 01/14/2012 JULIET BELTRAN DO 682.9 Cellulitis And Abscess Of Unspecified Sites 01/14/2012 JULIET BELTRAN DO 782.3 Edema 01/14/2012 CHRIS STEVENSON MD 682.9 Cellulitis And Abscess Of Unspecified Sites 01/14/2012 CHRIS STEVENSON MD 782.3 Edema 01/14/2012 JULIET BELTRAN DO 682.9 Cellulitis And Abscess Of Unspecified Sites 01/14/2012 JULIET BELTRAN DO 782.3 Edema 01/16/2012 Ot 272.4 HYPERLIPIDEMIA NEC/NOS 01/16/2012 Ot 274.9 GOUT NOS 01/16/2012 Ot 278.01 MORBID OBESITY 01/16/2012 Ot 300.00 ANXIETY STATE NOS 01/16/2012 Ot 311 DEPRESSIVE DISORDER NEC 01/16/2012 Ot 327.23 OBSTRUCTIVE SLEEP APNEA (ADULT) (PEDIATR 01/16/2012 Ot 401.9 HYPERTENSION NOS 01/16/2012 Ot 453.6 VENOUS EMBOLISM THROMBOSIS OF SUPERFIC 01/16/2012 Ot 592.0 CALCULUS OF KIDNEY 01/16/2012 Ot 715.90 OSTEOARTHROS NOS-UNSPEC 01/16/2012 Ot 727.51 POPLITEAL SYNOVIAL CYST 01/16/2012 Ot V85.43 BODY MASS INDEX 50.0-59.9, ADULT 01/19/2012 JULIET BELTRAN DO 453.40 DVT - LOWER EXTREMITY 01/19/2012 JULIET BELTRAN DO V58.69 MEDICATION HIGH RISK 01/19/2012 453.40 DVT - LOWER EXTREMITY 01/19/2012 V58.69 MEDICATION HIGH RISK 01/19/2012 453.40 DVT - LOWER EXTREMITY 01/19/2012 V58.69 MEDICATION HIGH RISK 01/19/2012 BRIDGETT AGUILERA APRN 453.40 DVT - LOWER EXTREMITY 01/19/2012 BRIDGETT AGUILERA APRN V58.69 MEDICATION HIGH RISK 01/19/2012 453.40 DVT - LOWER EXTREMITY 01/19/2012 V58.69 MEDICATION HIGH RISK 01/19/2012 453.40 DVT - LOWER EXTREMITY 01/19/2012 V58.69 MEDICATION HIGH RISK 01/19/2012 453.40 DVT - LOWER EXTREMITY 01/19/2012 V58.69 MEDICATION HIGH RISK 01/19/2012 453.40 DVT - LOWER EXTREMITY 01/19/2012 V58.69 MEDICATION HIGH RISK 01/19/2012 AUDRA LEASE BROKER, RAHUL R 453.40 DVT - LOWER EXTREMITY 01/19/2012 ALFRED ZHU APRNRICIA R V58.69 MEDICATION HIGH RISK 01/19/2012 BELTRAN DO, JULIET K 453.40 DVT - LOWER EXTREMITY 01/19/2012 BELTRAN DO, JULIET K V58.69 MEDICATION HIGH RISK 01/19/2012 453.40 DVT - LOWER EXTREMITY 01/19/2012 V58.69 MEDICATION HIGH RISK 01/19/2012 ALFRED ZHU APRNRICIA R 453.40 DVT - LOWER EXTREMITY 01/19/2012 AUDRA DIAZ RAHUL R V58.69 MEDICATION HIGH RISK 01/19/2012 BELTRAN DO, JULIET K 453.40 DVT - LOWER EXTREMITY 01/19/2012 BELTRAN DO, JULIET K V58.69 MEDICATION HIGH RISK 01/19/2012 453.40 DVT - LOWER EXTREMITY 01/19/2012 V58.69 MEDICATION HIGH RISK 01/19/2012 453.40 DVT - LOWER EXTREMITY 01/19/2012 V58.69 MEDICATION HIGH RISK 01/19/2012 453.40 DVT - LOWER EXTREMITY 01/19/2012 V58.69 MEDICATION HIGH RISK 01/19/2012 BELTRAN DO, JULIET K 453.40 DVT - LOWER EXTREMITY 01/19/2012 BELTRAN DO, JULIET K V58.69 MEDICATION HIGH RISK 01/19/2012 ALFRED ZHU APRNRICIA R 453.40 DVT - LOWER EXTREMITY 01/19/2012 AUDRA DIAZ RAHUL R V58.69 MEDICATION HIGH RISK 01/19/2012 BELTRAN DO, JULIET K 453.40 DVT - LOWER EXTREMITY 01/19/2012 BELTRAN DO, JULIET K V58.69 MEDICATION HIGH RISK 01/19/2012 BELTRAN DO, JULIET K 453.40 DVT - LOWER EXTREMITY 01/19/2012 BELTRAN DO, JULIET K V58.69 MEDICATION HIGH RISK 01/19/2012 BELTRAN DO, JULIET K 453.40 DVT - LOWER EXTREMITY 01/19/2012 BELTRAN DO, JULIET K V58.69 MEDICATION HIGH RISK 01/19/2012 BELTRAN DO, JULIET K 453.40 DVT - LOWER EXTREMITY 01/19/2012 BELTRAN DO, JULIET K V58.69 MEDICATION HIGH RISK 01/19/2012 BELTRAN DO, JULIET K 453.40 DVT - LOWER EXTREMITY 01/19/2012 BELTRAN DO, JULIET K V58.69 MEDICATION HIGH RISK 01/19/2012 BELTRAN DO, JULIET K 453.40 DVT - LOWER EXTREMITY 01/19/2012 BELTRAN DO, JULIET K V58.69 MEDICATION HIGH RISK 01/19/2012 GRAHAM ESTRELLA, CHRIS N 453.40 DVT - LOWER EXTREMITY 01/19/2012 CHRIS STEVENSON MD V58.69 MEDICATION HIGH RISK 01/19/2012 BELTRAN DO, JULIET K 453.40 DVT - LOWER EXTREMITY 01/19/2012 BELTRAN DO, JULIET K V58.69 MEDICATION HIGH RISK 01/19/2012 BELTRAN DO, JULIET K 453.40 DVT - LOWER EXTREMITY 01/19/2012 BELTRAN DO, JULIET K V58.69 MEDICATION HIGH RISK 01/19/2012 BELTRAN DO, JULIET K 453.40 DVT - LOWER EXTREMITY 01/19/2012 BELTRAN DO, JULIET K V58.69 MEDICATION HIGH RISK 01/19/2012 BELTRAN DO, JULIET K 453.40 DVT - LOWER EXTREMITY 01/19/2012 BELTRAN DO, JULIET K V58.69 MEDICATION HIGH RISK 01/19/2012 BELTRAN DO, JULIET K 453.40 DVT - LOWER EXTREMITY 01/19/2012 BELTRAN DO, JULIET K V58.69 MEDICATION HIGH RISK 01/19/2012 BELTRAN DO, JULIET K 453.40 DVT - LOWER EXTREMITY 01/19/2012 BELTRAN DO, JULIET K V58.69 MEDICATION HIGH RISK 01/19/2012 BELTRAN DO, JULIET K 453.40 DVT - LOWER EXTREMITY 01/19/2012 BELTRAN DO, JULIET K V58.69 MEDICATION HIGH RISK 01/19/2012 BELTRAN DO, JULIET K 453.40 DVT - LOWER EXTREMITY 01/19/2012 BELTRAN DO, JULIET K V58.69 MEDICATION HIGH RISK 01/19/2012 BELTRAN DO, JULIET K 453.40 DVT - LOWER EXTREMITY 01/19/2012 BELTRAN DO, JULIET K V58.69 MEDICATION HIGH RISK 01/19/2012 BELTRAN DO, JULIET K 453.40 DVT - LOWER EXTREMITY 01/19/2012 BELTRAN DO, JULIET K V58.69 MEDICATION HIGH RISK 01/19/2012 BELTRAN DO, JULIET K 453.40 DVT - LOWER EXTREMITY 01/19/2012 BELTRAN DO, JULIET K V58.69 MEDICATION HIGH RISK 01/19/2012 BELTRAN DO, JULIET K 453.40 DVT - LOWER EXTREMITY 01/19/2012 BELTRAN DO, JULIET K V58.69 MEDICATION HIGH RISK 01/19/2012 BELTRAN DO, JULIET K 453.40 DVT - LOWER EXTREMITY 01/19/2012 BELTRAN DO, JULIET K V58.69 MEDICATION HIGH RISK 01/19/2012 CHRIS STEVENSON MD 453.40 DVT - LOWER EXTREMITY 01/19/2012 CHRIS STEVENSON MD V58.69 MEDICATION HIGH RISK 01/19/2012 EBLTRAN DO, JULIET K 453.40 DVT - LOWER EXTREMITY 01/19/2012 BELTRAN DO, JULIET K V58.69 MEDICATION HIGH RISK 01/19/2012 BELTRAN DO, JULIET K 453.40 DVT - LOWER EXTREMITY 01/19/2012 BELTRAN DO, JULIET K V58.69 MEDICATION HIGH RISK 01/19/2012 BELTRAN DO, JULIET K 453.40 DVT - LOWER EXTREMITY 01/19/2012 BELTRAN DO, JULIET K V58.69 MEDICATION HIGH RISK 01/19/2012 BELTRAN DO, JULIET K 453.40 DVT - LOWER EXTREMITY 01/19/2012 BELTRAN DO, JULIET K V58.69 MEDICATION HIGH RISK 01/19/2012 BELTRAN DO, JULIET K 453.40 DVT - LOWER EXTREMITY 01/19/2012 BELTRAN DO, JULIET K V58.69 MEDICATION HIGH RISK 01/19/2012 BELTRAN DO, JULIET K 453.40 DVT - LOWER EXTREMITY 01/19/2012 BELTRAN DO, JULIET K V58.69 MEDICATION HIGH RISK 01/19/2012 GRAHAM ESTRELLA, CHRIS Steiner 453.40 DVT - LOWER EXTREMITY 01/19/2012 GRAHAM ESTRELLA, CHRIS Steiner V58.69 MEDICATION HIGH RISK 01/19/2012 GRAHAM ESTRELLA, CHRIS N 453.40 DVT - LOWER EXTREMITY 01/19/2012 CHRIS STEVENSON MD V58.69 MEDICATION HIGH RISK 01/19/2012 BELTRAN DO, JULIET K 453.40 DVT - LOWER EXTREMITY 01/19/2012 BELTRAN DO, JULIET K V58.69 MEDICATION HIGH RISK 01/19/2012 BELTRAN DO, JULIET K 453.40 DVT - LOWER EXTREMITY 01/19/2012 BELTRAN DO, JULIET K V58.69 MEDICATION HIGH RISK 01/19/2012 BELTRAN DO, JULIET K 453.40 DVT - LOWER EXTREMITY 01/19/2012 BELTRAN DO, JULIET K V58.69 MEDICATION HIGH RISK 01/19/2012 BELTRAN DO, JULIET K 453.40 DVT - LOWER EXTREMITY 01/19/2012 BELTRAN DO, JULIET K V58.69 MEDICATION HIGH RISK 01/19/2012 BELTRAN DO, JULIET K 453.40 DVT - LOWER EXTREMITY 01/19/2012 BELTRAN DO, JULIET K V58.69 MEDICATION HIGH RISK 01/19/2012 BELTRAN DO, JULIET K 453.40 DVT - LOWER EXTREMITY 01/19/2012 BELTRAN DO, JULIET K V58.69 MEDICATION HIGH RISK 01/19/2012 LUCA DPM, KELLE 453.40 DVT - LOWER EXTREMITY 01/19/2012 LUCA DPM, KELLE V58.69 MEDICATION HIGH RISK 01/19/2012 ZHU LEASE BROKER, RAHUL R 453.40 DVT - LOWER EXTREMITY 01/19/2012 ZHU LEASE BROKER, RAHUL R V58.69 MEDICATION HIGH RISK 01/19/2012 BELTRAN DO, JULIET K 453.40 DVT - LOWER EXTREMITY 01/19/2012 BELTRAN DO, JULIET K V58.69 MEDICATION HIGH RISK 01/19/2012 BELTRAN DO, JULIET K 453.40 DVT - LOWER EXTREMITY 01/19/2012 BELTRAN DO, JULIET K V58.69 MEDICATION HIGH RISK 01/19/2012 BELTRAN DO, JULIET K 453.40 DVT - LOWER EXTREMITY 01/19/2012 BELTRAN DO, JULIET K V58.69 MEDICATION HIGH RISK 01/19/2012 BELTRAN DO, JULIET K 453.40 DVT - LOWER EXTREMITY 01/19/2012 BELTRAN DO, JULIET K V58.69 MEDICATION HIGH RISK 01/19/2012 BELTRAN DO, JULIET K 453.40 DVT - LOWER EXTREMITY 01/19/2012 BELTRAN DO, JULIET K V58.69 MEDICATION HIGH RISK 01/19/2012 BELTRAN DO, JULIET K 453.40 DVT - LOWER EXTREMITY 01/19/2012 BELTRAN DO, JULIET K V58.69 MEDICATION HIGH RISK 01/19/2012 GRAHAM ESTRELLA, CHRIS Steiner 453.40 DVT - LOWER EXTREMITY 01/19/2012 GRAHAM ESTRELLA, CHRIS Steiner V58.69 MEDICATION HIGH RISK 01/19/2012 GRAHAM ESTRELLA, CHRIS Steiner 453.40 DVT - LOWER EXTREMITY 01/19/2012 GRAHAM ESTRELLA, CHRIS Steiner V58.69 MEDICATION HIGH RISK 01/19/2012 BELTRAN DO, JULIET K 453.40 DVT - LOWER EXTREMITY 01/19/2012 MARIBEL BELTRAN DOA K V58.69 MEDICATION HIGH RISK 01/19/2012 BELTRAN DO JULIET K 453.40 DVT - LOWER EXTREMITY 01/19/2012 DEVIN WATTERS JULIET K V58.69 MEDICATION HIGH RISK 01/19/2012 CHRIS STEVENSON MD 453.40 DVT - LOWER EXTREMITY 01/19/2012 CHRIS STEVENSON MD N V58.69 MEDICATION HIGH RISK 01/19/2012 GRAHAM ESTRELLA, CHRIS N 453.40 DVT - LOWER EXTREMITY 01/19/2012 GRAHAM ESTRELLA, CHRIS N V58.69 MEDICATION HIGH RISK 01/19/2012 MARIBEL BELTRAN DOA K 453.40 DVT - LOWER EXTREMITY 01/19/2012 MARIBEL BELTRAN DOA K V58.69 MEDICATION HIGH RISK 01/19/2012 CHRIS STEVENSON MD N 453.40 DVT - LOWER EXTREMITY 01/19/2012 CHRIS STEVENSON MD V58.69 MEDICATION HIGH RISK 01/19/2012 JULIET BELTRAN DO K 453.40 DVT - LOWER EXTREMITY 01/19/2012 MARIBEL BELTRAN DOA K V58.69 MEDICATION HIGH RISK 04/20/2012 RAHUL ZHU APRN R 782.3 soft tissue swelling (non-joint) [Sx] 04/20/2012 JULIET BELTRAN DO 782.3 soft tissue swelling (non-joint) [Sx] 04/20/2012 782.3 soft tissue swelling (non-joint) [Sx] 04/20/2012 RAHUL ZHU APRN R 782.3 soft tissue swelling (non-joint) [Sx] 04/20/2012 JULIET BELTRAN DO 782.3 soft tissue swelling (non-joint) [Sx] 04/20/2012 782.3 SOFT TISSUE SWELLING (NON-JOINT) [SX] 04/20/2012 782.3 SOFT TISSUE SWELLING (NON-JOINT) [SX] 04/20/2012 782.3 SOFT TISSUE SWELLING (NON-JOINT) [SX] 04/20/2012 JULIET BELTRAN DO 782.3 SOFT TISSUE SWELLING (NON-JOINT) [SX] 04/20/2012 RAHUL ZHU APRN R 782.3 SOFT TISSUE SWELLING (NON-JOINT) [SX] 04/20/2012 BELTRAN DO, JULIET K 782.3 SOFT TISSUE SWELLING (NON-JOINT) [SX] 04/20/2012 BELTRAN DO, JULIET K 782.3 SOFT TISSUE SWELLING (NON-JOINT) [SX] 04/20/2012 BELTRAN DO, JULIET K 782.3 SOFT TISSUE SWELLING (NON-JOINT) [SX] 04/20/2012 BELTRAN DO, JULIET K 782.3 SOFT TISSUE SWELLING (NON-JOINT) [SX] 04/20/2012 BELTRAN DO, JULIET K 782.3 SOFT TISSUE SWELLING (NON-JOINT) [SX] 04/20/2012 BELTRAN DO, JULIET K 782.3 SOFT TISSUE SWELLING (NON-JOINT) [SX] 04/20/2012 CHRIS STEVENSON MD 782.3 SOFT TISSUE SWELLING (NON-JOINT) [SX ] 04/20/2012 BELTRAN DO, JULIET K 782.3 SOFT TISSUE SWELLING (NON-JOINT) [SX] 04/20/2012 BELTRAN DO, JULIET K 782.3 SOFT TISSUE SWELLING (NON-JOINT) [SX] 04/20/2012 BELTRAN DO, JULIET K 782.3 SOFT TISSUE SWELLING (NON-JOINT) [SX] 04/20/2012 BELTRAN DO, JULIET K 782.3 SOFT TISSUE SWELLING (NON-JOINT) [SX] 04/20/2012 BELTRAN DO, JULIET K 782.3 SOFT TISSUE SWELLING (NON-JOINT) [SX] 04/20/2012 BELTRAN DO, JULIET K 782.3 SOFT TISSUE SWELLING (NON-JOINT) [SX] 04/20/2012 BELTRAN DO, JULIET K 782.3 SOFT TISSUE SWELLING (NON-JOINT) [SX] 04/20/2012 BELTRAN DO, JULIET K 782.3 SOFT TISSUE SWELLING (NON-JOINT) [SX] 04/20/2012 BELTRAN DO, JULIET K 782.3 SOFT TISSUE SWELLING (NON-JOINT) [SX] 04/20/2012 BELTRAN DO, JULIET K 782.3 SOFT TISSUE SWELLING (NON-JOINT) [SX] 04/20/2012 BELTRAN DO, JULIET K 782.3 SOFT TISSUE SWELLING (NON-JOINT) [SX] 04/20/2012 BELTRAN DO, JULIET K 782.3 SOFT TISSUE SWELLING (NON-JOINT) [SX] 04/20/2012 BELTRAN DO, JULIET K 782.3 SOFT TISSUE SWELLING (NON-JOINT) [SX] 04/20/2012 CHRIS STEVENSON MD 782.3 SOFT TISSUE SWELLING (NON-JOINT) [SX ] 04/20/2012 BELTRAN DO, JULIET K 782.3 SOFT TISSUE SWELLING (NON-JOINT) [SX] 04/20/2012 BELTRAN DO, JULIET K 782.3 SOFT TISSUE SWELLING (NON-JOINT) [SX] 04/20/2012 BELTRAN DO, JULIET K 782.3 SOFT TISSUE SWELLING (NON-JOINT) [SX] 04/20/2012 BELTRAN DO, JULIET K 782.3 SOFT TISSUE SWELLING (NON-JOINT) [SX] 04/20/2012 BELTRAN DO, JULIET K 782.3 SOFT TISSUE SWELLING (NON-JOINT) [SX] 04/20/2012 BELTRAN DO, JULIET K 782.3 SOFT TISSUE SWELLING (NON-JOINT) [SX] 04/20/2012 CHRIS STEVENSON MD 782.3 SOFT TISSUE SWELLING (NON-JOINT) [SX ] 04/20/2012 CHRIS STEVENSON MD 782.3 SOFT TISSUE SWELLING (NON-JOINT) [SX ] 04/20/2012 BELTRAN DO, JULIET K 782.3 SOFT TISSUE SWELLING (NON-JOINT) [SX] 04/20/2012 BELTRAN DO, JULIET K 782.3 SOFT TISSUE SWELLING (NON-JOINT) [SX] 04/20/2012 BELTRAN DO, JULIET K 782.3 SOFT TISSUE SWELLING (NON-JOINT) [SX] 04/20/2012 BELTRAN DO, JULIET K 782.3 SOFT TISSUE SWELLING (NON-JOINT) [SX] 04/20/2012 BELTRAN DO, JULIET K 782.3 SOFT TISSUE SWELLING (NON-JOINT) [SX] 04/20/2012 BELTRAN DO, JULIET K 782.3 SOFT TISSUE SWELLING (NON-JOINT) [SX] 04/20/2012 LUCA DPM, KELLE 782.3 SOFT TISSUE SWELLING (NON-JOINT) [SX] 04/20/2012 ZHU LEASE BROKER, RAHUL R 782.3 SOFT TISSUE SWELLING (NON-JOINT) [SX] 04/20/2012 DEVIN JULIET WATTERS K 782.3 SOFT TISSUE SWELLING (NON-JOINT) [SX] 04/20/2012 DEVIN WATTERSMARIBELA K 782.3 SOFT TISSUE SWELLING (NON-JOINT) [SX] 04/20/2012 DEVIN DO JULIET K 782.3 SOFT TISSUE SWELLING (NON-JOINT) [SX] 04/20/2012 BELTRAN JULIET WATTERS K 782.3 SOFT TISSUE SWELLING (NON-JOINT) [SX] 04/20/2012 BELTRAN MARIBEL WATTERSA K 782.3 SOFT TISSUE SWELLING (NON-JOINT) [SX] 04/20/2012 DEVIN MARIBEL WATTERSA K 782.3 SOFT TISSUE SWELLING (NON-JOINT) [SX] 04/20/2012 CHRIS STEVENSON MD 782.3 SOFT TISSUE SWELLING (NON-JOINT) [SX ] 04/20/2012 CHRIS STEVENSON MD 782.3 SOFT TISSUE SWELLING (NON-JOINT) [SX ] 04/20/2012 JULIET BELTRAN DO 782.3 SOFT TISSUE SWELLING (NON-JOINT) [SX] 04/20/2012 BELTRAN JULIET WATTERS K 782.3 SOFT TISSUE SWELLING (NON-JOINT) [SX] 04/20/2012 CHRIS STEVENSON MD 782.3 SOFT TISSUE SWELLING (NON-JOINT) [SX ] 04/20/2012 CHRIS STEVENSON MD 782.3 SOFT TISSUE SWELLING (NON-JOINT) [SX ] 04/20/2012 JULIET BELTRAN DO 782.3 SOFT TISSUE SWELLING (NON-JOINT) [SX] 04/20/2012 CHRIS STEVENSON MD 782.3 SOFT TISSUE SWELLING (NON-JOINT) [SX ] 04/20/2012 JULIET BELTRAN DO 782.3 SOFT TISSUE SWELLING (NON-JOINT) [SX] 04/22/2012 Ot 592.0 CALCULUS OF KIDNEY 04/22/2012 Ot 789.04 ABDOMINAL PAIN, LEFT LOWER QUADRANT 04/22/2012 Ot V58.61 ANTICOAGULANTS,LT,CURRENT USE 07/28/2012 789.09 ABDOMINAL PAIN OTHER SPECIFIED SITE 07/28/2012 799.02 HYPOXEMIA 07/28/2012 789.09 ABDOMINAL PAIN OTHER SPECIFIED SITE 07/28/2012 799.02 HYPOXEMIA 07/28/2012 789.09 ABDOMINAL PAIN OTHER SPECIFIED SITE 07/28/2012 799.02 HYPOXEMIA 07/28/2012 BELTRAN DO, JULIET K 789.09 ABDOMINAL PAIN OTHER SPECIFIED SITE 07/28/2012 BELTRAN DO, JULIET K 799.02 HYPOXEMIA 07/28/2012 AUDRA DIAZ RAHUL R 789.09 ABDOMINAL PAIN OTHER SPECIFIED SITE 07/28/2012 RAHUL ZHU APRN R 799.02 HYPOXEMIA 07/28/2012 BELTRAN DO, JULIET K 789.09 ABDOMINAL PAIN OTHER SPECIFIED SITE 07/28/2012 BELTRAN DO, JULIET K 799.02 HYPOXEMIA 07/28/2012 BELTRAN DO, JULIET K 789.09 ABDOMINAL PAIN OTHER SPECIFIED SITE 07/28/2012 BELTRAN DO, JULIET K 799.02 HYPOXEMIA 07/28/2012 BELTRAN DO, JULIET K 789.09 ABDOMINAL PAIN OTHER SPECIFIED SITE 07/28/2012 BELTRAN DO, JULIET K 799.02 HYPOXEMIA 07/28/2012 BELTRAN DO, JULIET K 789.09 ABDOMINAL PAIN OTHER SPECIFIED SITE 07/28/2012 BELTRAN DO, JULIET K 799.02 HYPOXEMIA 07/28/2012 BELTRAN DO, JULIET K 789.09 ABDOMINAL PAIN OTHER SPECIFIED SITE 07/28/2012 BELTRAN DO, JULIET K 799.02 HYPOXEMIA 07/28/2012 BELTRAN DO, JULIET K 789.09 ABDOMINAL PAIN OTHER SPECIFIED SITE 07/28/2012 BELTRAN DO, JULIET K 799.02 HYPOXEMIA 07/28/2012 CHRIS STEVENSON MD 789.09 ABDOMINAL PAIN OTHER SPECIFIED SITE 07/28/2012 CHRIS STEVENSON MD 799.02 HYPOXEMIA 07/28/2012 BELTRAN DO, JULIET K 789.09 ABDOMINAL PAIN OTHER SPECIFIED SITE 07/28/2012 BELTRAN DO, JULIET K 799.02 HYPOXEMIA 07/28/2012 BELTRAN DO, JULIET K 789.09 ABDOMINAL PAIN OTHER SPECIFIED SITE 07/28/2012 BELTRAN DO, JULIET K 799.02 HYPOXEMIA 07/28/2012 BELTRAN DO, JULIET K 789.09 ABDOMINAL PAIN OTHER SPECIFIED SITE 07/28/2012 BELTRAN DO, JULIET K 799.02 HYPOXEMIA 07/28/2012 BELTRAN DO, JULIET K 789.09 ABDOMINAL PAIN OTHER SPECIFIED SITE 07/28/2012 BELTRAN DO, JULIET K 799.02 HYPOXEMIA 07/28/2012 BELTRAN DO, JULIET K 789.09 ABDOMINAL PAIN OTHER SPECIFIED SITE 07/28/2012 BELTRAN DO, JULIET K 799.02 HYPOXEMIA 07/28/2012 BELTRAN DO, JUILET K 789.09 ABDOMINAL PAIN OTHER SPECIFIED SITE 07/28/2012 BELTRAN DO, JULIET K 799.02 HYPOXEMIA 07/28/2012 BELTRAN DO, JULIET K 789.09 ABDOMINAL PAIN OTHER SPECIFIED SITE 07/28/2012 BELTRAN DO, JULIET K 799.02 HYPOXEMIA 07/28/2012 BELTRAN DO, JULIET K 789.09 ABDOMINAL PAIN OTHER SPECIFIED SITE 07/28/2012 BELTRAN DO, JULIET K 799.02 HYPOXEMIA 07/28/2012 BELTRAN DO, JULIET K 789.09 ABDOMINAL PAIN OTHER SPECIFIED SITE 07/28/2012 BELTRAN DO, JULIET K 799.02 HYPOXEMIA 07/28/2012 BELTRAN DO, JULIET K 789.09 ABDOMINAL PAIN OTHER SPECIFIED SITE 07/28/2012 BELTRAN DO, JULIET K 799.02 HYPOXEMIA 07/28/2012 BELTRAN DO, JULIET K 789.09 ABDOMINAL PAIN OTHER SPECIFIED SITE 07/28/2012 BELTRAN DO, JULIET K 799.02 HYPOXEMIA 07/28/2012 BELTRAN DO, JULIET K 789.09 ABDOMINAL PAIN OTHER SPECIFIED SITE 07/28/2012 BELTRAN DO, JULIET K 799.02 HYPOXEMIA 07/28/2012 BELTRAN DO, JULIET K 789.09 ABDOMINAL PAIN OTHER SPECIFIED SITE 07/28/2012 BELTRAN DO, JULIET K 799.02 HYPOXEMIA 07/28/2012 CHRIS STEVENSON MD 789.09 ABDOMINAL PAIN OTHER SPECIFIED SITE 07/28/2012 CHRIS STEVENSON MD 799.02 HYPOXEMIA 07/28/2012 BELTRAN DO, JULIET K 789.09 ABDOMINAL PAIN OTHER SPECIFIED SITE 07/28/2012 BELTRAN DO, JULIET K 799.02 HYPOXEMIA 07/28/2012 BELTRAN DO, JULIET K 789.09 ABDOMINAL PAIN OTHER SPECIFIED SITE 07/28/2012 BELTRAN DO, JULIET K 799.02 HYPOXEMIA 07/28/2012 BELTRAN DO, JULIET K 789.09 ABDOMINAL PAIN OTHER SPECIFIED SITE 07/28/2012 BELTRAN DO, JULIET K 799.02 HYPOXEMIA 07/28/2012 BELTRAN DO, JULIET K 789.09 ABDOMINAL PAIN OTHER SPECIFIED SITE 07/28/2012 BELTRAN DO, JULIET K 799.02 HYPOXEMIA 07/28/2012 BELTRAN DO, JULIET K 789.09 ABDOMINAL PAIN OTHER SPECIFIED SITE 07/28/2012 BELTRAN DO, JULIET K 799.02 HYPOXEMIA 07/28/2012 BELTRAN DO, JULIET K 789.09 ABDOMINAL PAIN OTHER SPECIFIED SITE 07/28/2012 BELTRAN DO, JULIET K 799.02 HYPOXEMIA 07/28/2012 CHRSI STEVENSON MD 789.09 ABDOMINAL PAIN OTHER SPECIFIED SITE 07/28/2012 CHRIS STEVENSON MD 799.02 HYPOXEMIA 07/28/2012 CHRIS STEVENSON MD N 789.09 ABDOMINAL PAIN OTHER SPECIFIED SITE 07/28/2012 CHRIS STEVENSON MD 799.02 HYPOXEMIA 07/28/2012 BELTRAN DO, JULIET K 789.09 ABDOMINAL PAIN OTHER SPECIFIED SITE 07/28/2012 BELTRAN DO, JULIET K 799.02 HYPOXEMIA 07/28/2012 BELTRAN DO, JULIET K 789.09 ABDOMINAL PAIN OTHER SPECIFIED SITE 07/28/2012 BELTRAN DO, JULIET K 799.02 HYPOXEMIA 07/28/2012 BELTRAN DO, JULIET K 789.09 ABDOMINAL PAIN OTHER SPECIFIED SITE 07/28/2012 BELTRAN DO, JULIET K 799.02 HYPOXEMIA 07/28/2012 BELTRAN DO, JULIET K 789.09 ABDOMINAL PAIN OTHER SPECIFIED SITE 07/28/2012 BELTRAN DO, JULIET K 799.02 HYPOXEMIA 07/28/2012 BELTRAN DO, JULIET K 789.09 ABDOMINAL PAIN OTHER SPECIFIED SITE 07/28/2012 BELTRAN DO, JULIET K 799.02 HYPOXEMIA 07/28/2012 BELTRAN DO, JULIET K 789.09 ABDOMINAL PAIN OTHER SPECIFIED SITE 07/28/2012 BELTRAN DO, JULIET K 799.02 HYPOXEMIA 07/28/2012 LUCA DPM, KELLE 789.09 ABDOMINAL PAIN OTHER SPECIFIED SITE 07/28/2012 LUCA DPM, KELLE 799.02 HYPOXEMIA 07/28/2012 RAHUL ZHU APRN 789.09 ABDOMINAL PAIN OTHER SPECIFIED SITE 07/28/2012 RAHUL ZHU APRN 799.02 HYPOXEMIA 07/28/2012 BELTRAN DO, JULIET K 789.09 ABDOMINAL PAIN OTHER SPECIFIED SITE 07/28/2012 BELTRAN DO, JULIET K 799.02 HYPOXEMIA 07/28/2012 BELTRAN DO, JULIET K 789.09 ABDOMINAL PAIN OTHER SPECIFIED SITE 07/28/2012 BELTRAN DO, JULIET K 799.02 HYPOXEMIA 07/28/2012 BELTRAN DO, JULIET K 789.09 ABDOMINAL PAIN OTHER SPECIFIED SITE 07/28/2012 BELTRAN DO, JULIET K 799.02 HYPOXEMIA 07/28/2012 BELTRAN DO, JULIET K 789.09 ABDOMINAL PAIN OTHER SPECIFIED SITE 07/28/2012 BELTRAN DO, JULIET K 799.02 HYPOXEMIA 07/28/2012 BELTRAN DO, JULIET K 789.09 ABDOMINAL PAIN OTHER SPECIFIED SITE 07/28/2012 BELTRAN DO, JULIET K 799.02 HYPOXEMIA 07/28/2012 BELTRAN DO, JULIET K 789.09 ABDOMINAL PAIN OTHER SPECIFIED SITE 07/28/2012 BELTRAN DO, JULIET K 799.02 HYPOXEMIA 07/28/2012 CHRIS STEVENSON MD 789.09 ABDOMINAL PAIN OTHER SPECIFIED SITE 07/28/2012 CHRIS STEVENSON MD 799.02 HYPOXEMIA 07/28/2012 CHRIS STEVENSON MD 789.09 ABDOMINAL PAIN OTHER SPECIFIED SITE 07/28/2012 CHRIS STEVENSON MD 799.02 HYPOXEMIA 07/28/2012 BELTRAN DO, JULIET K 789.09 ABDOMINAL PAIN OTHER SPECIFIED SITE 07/28/2012 BELTRAN DO, JULIET K 799.02 HYPOXEMIA 07/28/2012 BELTRAN DO, JULIET K 789.09 ABDOMINAL PAIN OTHER SPECIFIED SITE 07/28/2012 BELTRAN DO, JULIET K 799.02 HYPOXEMIA 07/28/2012 CHRIS STEVENSON MD 789.09 ABDOMINAL PAIN OTHER SPECIFIED SITE 07/28/2012 CHRIS STEVENSON MD 799.02 HYPOXEMIA 07/28/2012 CHRIS STEVENSON MD 789.09 ABDOMINAL PAIN OTHER SPECIFIED SITE 07/28/2012 CHRIS STEVENSON MD 799.02 HYPOXEMIA 07/28/2012 BELTRAN DO, JULIET K 789.09 ABDOMINAL PAIN OTHER SPECIFIED SITE 07/28/2012 BELTRAN DO, JULIET K 799.02 HYPOXEMIA 07/28/2012 CHRIS STEVENSON MD 789.09 ABDOMINAL PAIN OTHER SPECIFIED SITE 07/28/2012 CHRIS STEVENSON MD 799.02 HYPOXEMIA 07/28/2012 BELTRAN DO, JULIET K 789.09 ABDOMINAL PAIN OTHER SPECIFIED SITE 07/28/2012 BELTRAN DO, JULIET K 799.02 HYPOXEMIA 09/27/2012 496 COPD 09/27/2012 729.5 PAIN IN LIMB 09/27/2012 BELTRAN DO, JULIET K 496 COPD 09/27/2012 BELTRAN DO, JULIET K 729.5 PAIN IN LIMB 09/27/2012 AUDRA LEASE BROKERSHANNONIA R 496 COPD 09/27/2012 AUDRA LEASE BROKERSHANNONIA R 729.5 PAIN IN LIMB 09/27/2012 BELTRAN DO, JULIET K 496 COPD 09/27/2012 BELTRAN DO, JULIET K 729.5 PAIN IN LIMB 09/27/2012 BELTRAN DO, JULIET K 496 COPD 09/27/2012 BELTRAN DO, JULIET K 729.5 PAIN IN LIMB 09/27/2012 BELTRAN DO, JULIET K 496 COPD 09/27/2012 BELTRAN DO, JULIET K 729.5 PAIN IN LIMB 09/27/2012 BELTRAN DO, JULIET K 496 COPD 09/27/2012 BELTRAN DO, JULIET K 729.5 PAIN IN LIMB 09/27/2012 BELTRAN DO, JULIET K 496 COPD 09/27/2012 BELTRAN DO, JULIET K 729.5 PAIN IN LIMB 09/27/2012 BELTRAN DO, JULIET K 496 COPD 09/27/2012 BELTRAN DO, JULIET K 729.5 PAIN IN LIMB 09/27/2012 GRAHAM ESTRELLA, CHRIS N 496 COPD 09/27/2012 GRAHAM ESTRELLA, CHRIS Steiner 729.5 PAIN IN LIMB 09/27/2012 BELTRAN DO, JULIET K 496 COPD 09/27/2012 BELTRAN DO, JULIET K 729.5 PAIN IN LIMB 09/27/2012 BELTRAN DO, JULIET K 496 COPD 09/27/2012 BELTRAN DO, JULIET K 729.5 PAIN IN LIMB 09/27/2012 BELTRAN DO, JULIET K 496 COPD 09/27/2012 BELTRAN DO, JULIET K 729.5 PAIN IN LIMB 09/27/2012 BELTRAN DO, JULIET K 496 COPD 09/27/2012 BELTRAN DO, JULIET K 729.5 PAIN IN LIMB 09/27/2012 BELTRAN DO, UJLIET K 496 COPD 09/27/2012 BELTRAN DO, JULIET K 729.5 PAIN IN LIMB 09/27/2012 BELTRAN DO, JULIET K 496 COPD 09/27/2012 BELTRAN DO, JULIET K 729.5 PAIN IN LIMB 09/27/2012 BELTRAN DO, JULIET K 496 COPD 09/27/2012 BELTRAN DO, JULIET K 729.5 PAIN IN LIMB 09/27/2012 BELTRAN DO, JULIET K 496 COPD 09/27/2012 BELTRAN DO, JULIET K 729.5 PAIN IN LIMB 09/27/2012 BELTRAN DO, JULIET K 496 COPD 09/27/2012 BELTRAN DO, JULIET K 729.5 PAIN IN LIMB 09/27/2012 BELTRAN DO, JULIET K 496 COPD 09/27/2012 BELTRAN DO, JULIET K 729.5 PAIN IN LIMB 09/27/2012 BELTRAN DO, JULIET K 496 COPD 09/27/2012 BELTRAN DO, JULIET K 729.5 PAIN IN LIMB 09/27/2012 BELTRAN DO, JULIET K 496 COPD 09/27/2012 BELTRAN DO, JULIET K 729.5 PAIN IN LIMB 09/27/2012 BELTRAN DO, JULIET K 496 COPD 09/27/2012 BELTRAN DO, JULIET K 729.5 PAIN IN LIMB 09/27/2012 CHRIS STEVENSON MD 496 COPD 09/27/2012 CHRIS STEVENSON MD 729.5 PAIN IN LIMB 09/27/2012 BELTRAN DO, JULIET K 496 COPD 09/27/2012 BELTRAN DO, JULIET K 729.5 PAIN IN LIMB 09/27/2012 BELTRAN DO, JULIET K 496 COPD 09/27/2012 BELTRAN DO, JULIET K 729.5 PAIN IN LIMB 09/27/2012 BELTRAN DO, JULIET K 496 COPD 09/27/2012 BELTRAN DO, JULIET K 729.5 PAIN IN LIMB 09/27/2012 BELTRAN DO, JULIET K 496 COPD 09/27/2012 BELTRAN DO, JULIET K 729.5 PAIN IN LIMB 09/27/2012 BELTRAN DO, JULIET K 496 COPD 09/27/2012 BELTRAN DO, JULIET K 729.5 PAIN IN LIMB 09/27/2012 BELTRAN DO, JULIET K 496 COPD 09/27/2012 BELTRAN DO, JULIET K 729.5 PAIN IN LIMB 09/27/2012 CHRIS STEVENSON MD N 496 COPD 09/27/2012 CHRIS STEVENSON MD N 729.5 PAIN IN LIMB 09/27/2012 CHRIS STEVENSON MD N 496 COPD 09/27/2012 CHRIS STEVENSON MD N 729.5 PAIN IN LIMB 09/27/2012 BELTRAN DO, JULIET K 496 COPD 09/27/2012 BELTRAN DO, JULIET K 729.5 PAIN IN LIMB 09/27/2012 BELTRAN DO, JULIET K 496 COPD 09/27/2012 BELTRAN DO, JULIET K 729.5 PAIN IN LIMB 09/27/2012 BELTRAN DO, JULIET K 496 COPD 09/27/2012 BELTRAN DO, JULIET K 729.5 PAIN IN LIMB 09/27/2012 BELTRAN DO, JULIET K 496 COPD 09/27/2012 BELTRAN DO, JULIET K 729.5 PAIN IN LIMB 09/27/2012 BELTRAN DO, JULIET K 496 COPD 09/27/2012 BELTRAN DO, JULIET K 729.5 PAIN IN LIMB 09/27/2012 BELTRAN DO, JULIET K 496 COPD 09/27/2012 BELTRAN DO, JULIET K 729.5 PAIN IN LIMB 09/27/2012 LUCA DPM, KELLE 496 COPD 09/27/2012 LUCA DPM, KELLE 729.5 PAIN IN LIMB 09/27/2012 AUDRA LEASE BROKER, RAHUL R 496 COPD 09/27/2012 ZHU LEASE BROKER, RAHUL R 729.5 PAIN IN LIMB 09/27/2012 BELTRAN DO, JULIET K 496 COPD 09/27/2012 BELTRAN DO, JULIET K 729.5 PAIN IN LIMB 09/27/2012 BELTRAN DO, JULIET K 496 COPD 09/27/2012 BELTRAN DO, JULIET K 729.5 PAIN IN LIMB 09/27/2012 BELTRAN DO, JULIET K 496 COPD 09/27/2012 BELTRAN DO, JULIET K 729.5 PAIN IN LIMB 09/27/2012 BELTRAN DO, JULIET K 496 COPD 09/27/2012 BELTRAN DO, JULIET K 729.5 PAIN IN LIMB 09/27/2012 BELTRAN DO, JULIET K 496 COPD 09/27/2012 BELTRAN DO, JULIET K 729.5 PAIN IN LIMB 09/27/2012 BELTRAN DO, JULIET K 496 COPD 09/27/2012 BELTRAN DO, JULIET K 729.5 PAIN IN LIMB 09/27/2012 CHRIS STEVENSON MD N 496 COPD 09/27/2012 CHRIS STEVENSON MD 729.5 PAIN IN LIMB 09/27/2012 CHRIS STEVENSON MD N 496 COPD 09/27/2012 CHRIS STEVENSON MD N 729.5 PAIN IN LIMB 09/27/2012 BELTRAN DO, JULIET K 496 COPD 09/27/2012 BELTRAN DO, JULIET K 729.5 PAIN IN LIMB 09/27/2012 BELTRAN DO, JULIET K 496 COPD 09/27/2012 BELTRAN DO, JULIET K 729.5 PAIN IN LIMB 09/27/2012 CHRIS STEVENSON MD N 496 COPD 09/27/2012 CHRIS STEVENSON MD N 729.5 PAIN IN LIMB 09/27/2012 CHRIS STEVENSON MD N 496 COPD 09/27/2012 CHRIS STEVENSON MD 729.5 PAIN IN LIMB 09/27/2012 BELTARN DO, JULIET K 496 COPD 09/27/2012 BELTRAN DO, JULIET K 729.5 PAIN IN LIMB 09/27/2012 CHRIS STEVENSON MD N 496 COPD 09/27/2012 CHRIS STEVENSON MD N 729.5 PAIN IN LIMB 09/27/2012 BELTRAN DO, JULIET K 496 COPD 09/27/2012 BELTRAN DO, JULIET K 729.5 PAIN IN LIMB 12/06/2012 BELTRAN DO, JULIET K V03.82 PPV23 (PNEUMOVAX) DX 12/06/2012 RAHUL ZHU APRN V03.82 PPV23 (PNEUMOVAX) DX 12/06/2012 BELTRAN DO, JULIET K V03.82 PPV23 (PNEUMOVAX) DX 12/06/2012 BELTRAN DO, JULIET K V03.82 PPV23 (PNEUMOVAX) DX 12/06/2012 BELTRAN DO, JULIET K V03.82 PPV23 (PNEUMOVAX) DX 12/06/2012 BELTRAN DO, JULIET K V03.82 PPV23 (PNEUMOVAX) DX 12/06/2012 BELTRAN DO, JULIET K V03.82 PPV23 (PNEUMOVAX) DX 12/06/2012 BELTRAN DO, JULIET K V03.82 PPV23 (PNEUMOVAX) DX 12/06/2012 CHRIS STEVENSON MD V03.82 PPV23 (PNEUMOVAX) DX 12/06/2012 BELTRAN DO, JULIET K V03.82 PPV23 (PNEUMOVAX) DX 12/06/2012 BELTRAN DO, JULIET K V03.82 PPV23 (PNEUMOVAX) DX 12/06/2012 BELTRAN DO, JULIET K V03.82 PPV23 (PNEUMOVAX) DX 12/06/2012 BELTRAN DO, JULIET K V03.82 PPV23 (PNEUMOVAX) DX 12/06/2012 BELTRAN DO, JULIET K V03.82 PPV23 (PNEUMOVAX) DX 12/06/2012 BELTRAN DO, JULIET K V03.82 PPV23 (PNEUMOVAX) DX 12/06/2012 BELTRAN DO, JULIET K V03.82 PPV23 (PNEUMOVAX) DX 12/06/2012 BELTRAN DO, JULIET K V03.82 PPV23 (PNEUMOVAX) DX 12/06/2012 BELTRAN DO, JULIET K V03.82 PPV23 (PNEUMOVAX) DX 12/06/2012 BELTRAN DO, JULIET K V03.82 PPV23 (PNEUMOVAX) DX 12/06/2012 BELTRAN DO, JULIET K V03.82 PPV23 (PNEUMOVAX) DX 12/06/2012 BELTRAN DO, JULIET K V03.82 PPV23 (PNEUMOVAX) DX 12/06/2012 BELTRAN DO, JULIET K V03.82 PPV23 (PNEUMOVAX) DX 12/06/2012 CHRIS STEVENSON MD V03.82 PPV23 (PNEUMOVAX) DX 12/06/2012 BELTRAN DO, JULIET K V03.82 PPV23 (PNEUMOVAX) DX 12/06/2012 BELTRAN DO, JULIET K V03.82 PPV23 (PNEUMOVAX) DX 12/06/2012 BELTRAN DO, JULIET K V03.82 PPV23 (PNEUMOVAX) DX 12/06/2012 BELTRAN DO, JULIET K V03.82 PPV23 (PNEUMOVAX) DX 12/06/2012 BELTRAN DO, JULIET K V03.82 PPV23 (PNEUMOVAX) DX 12/06/2012 BELTRAN DO, JULIET K V03.82 PPV23 (PNEUMOVAX) DX 12/06/2012 CHRIS STEVENSON MD V03.82 PPV23 (PNEUMOVAX) DX 12/06/2012 CHRIS STEVENSON MD V03.82 PPV23 (PNEUMOVAX) DX 12/06/2012 BELTRAN DO, JULIET K V03.82 PPV23 (PNEUMOVAX) DX 12/06/2012 BELTRAN DO, JULIET K V03.82 PPV23 (PNEUMOVAX) DX 12/06/2012 BELTRAN DO, JULIET K V03.82 PPV23 (PNEUMOVAX) DX 12/06/2012 BELTRAN DO, JULIET K V03.82 PPV23 (PNEUMOVAX) DX 12/06/2012 BELTRAN DO, JULIET K V03.82 PPV23 (PNEUMOVAX) DX 12/06/2012 BELTRAN DO, JULIET K V03.82 PPV23 (PNEUMOVAX) DX 12/06/2012 LUCA DPM, KELLE V03.82 PPV23 (PNEUMOVAX) DX 12/06/2012 RAHUL ZHU APRN R V03.82 PPV23 (PNEUMOVAX) DX 12/06/2012 BELTRAN DO, JLUIET K V03.82 PPV23 (PNEUMOVAX) DX 12/06/2012 BELTRAN DO, JULIET K V03.82 PPV23 (PNEUMOVAX) DX 12/06/2012 BELTRAN DO, JULIET K V03.82 PPV23 (PNEUMOVAX) DX 12/06/2012 BELTRAN DO, JULIET K V03.82 PPV23 (PNEUMOVAX) DX 12/06/2012 BELTRAN DO, JULIET K V03.82 PPV23 (PNEUMOVAX) DX 12/06/2012 BELTRAN DO, JULIET K V03.82 PPV23 (PNEUMOVAX) DX 12/06/2012 CHRIS STEVENSON MD V03.82 PPV23 (PNEUMOVAX) DX 12/06/2012 CHRIS STEVENSON MD V03.82 PPV23 (PNEUMOVAX) DX 12/06/2012 BELTRAN DO, JULIET K V03.82 PPV23 (PNEUMOVAX) DX 12/06/2012 BELTRAN DO, JULIET K V03.82 PPV23 (PNEUMOVAX) DX 12/06/2012 CHRIS STEVENSON MD V03.82 PPV23 (PNEUMOVAX) DX 12/06/2012 CHRIS STEVENSON MD N V03.82 PPV23 (PNEUMOVAX) DX 12/06/2012 BELTRAN DO, JULIET K V03.82 PPV23 (PNEUMOVAX) DX 12/06/2012 CHRIS STEVENSON MD V03.82 PPV23 (PNEUMOVAX) DX 12/06/2012 BELTRAN DO, JULIET K V03.82 PPV23 (PNEUMOVAX) DX 12/23/2012 RAHUL ZHU APRN 786.2 COUGH 12/23/2012 BELTRAN DO, JULIET K 786.2 COUGH 12/23/2012 BELTRAN DO, JULIET K 786.2 COUGH 12/23/2012 BELTRAN DO, JULIET K 786.2 COUGH 12/23/2012 BELTRAN DO, JULIET K 786.2 COUGH 12/23/2012 BELTRAN DO, JULIET K 786.2 COUGH 12/23/2012 BELTRAN DO, JULIET K 786.2 COUGH 12/23/2012 CHRIS STEVENSON MD N 786.2 COUGH 12/23/2012 BELTRAN DO, JULIET K 786.2 COUGH 12/23/2012 BELTRAN DO, JULIET K 786.2 COUGH 12/23/2012 BELTRAN DO, JULIET K 786.2 COUGH 12/23/2012 BELTRAN DO, JULIET K 786.2 COUGH 12/23/2012 BELTRAN DO, JULIET K 786.2 COUGH 12/23/2012 BELTRAN DO, JULIET K 786.2 COUGH 12/23/2012 BELTRAN DO, JULIET K 786.2 COUGH 12/23/2012 BELTRAN DO, JULIET K 786.2 COUGH 12/23/2012 BELTRAN DO, JULIET K 786.2 COUGH 12/23/2012 BELTRAN DO, JULIET K 786.2 COUGH 12/23/2012 BELTRAN DO, JULIET K 786.2 COUGH 12/23/2012 BELTRAN DO, JULIET K 786.2 COUGH 12/23/2012 BELTRAN DO, JULIET K 786.2 COUGH 12/23/2012 CHRIS STEVENSON MD 786.2 COUGH 12/23/2012 BELTRAN DO, JULIET K 786.2 COUGH 12/23/2012 BELTRAN DO, JULIET K 786.2 COUGH 12/23/2012 BELTRAN DO, JULIET K 786.2 COUGH 12/23/2012 BELTRAN DO, JULIET K 786.2 COUGH 12/23/2012 BELTRAN DO, JULIET K 786.2 COUGH 12/23/2012 BELTRAN DO, JULIET K 786.2 COUGH 12/23/2012 CHRIS STEVENSON MD N 786.2 COUGH 12/23/2012 GRAHAM ESTRELLA, CHRIS N 786.2 COUGH 12/23/2012 BELTRAN DO, JULIET K 786.2 COUGH 12/23/2012 BELTRAN DO, JULIET K 786.2 COUGH 12/23/2012 BELTRAN DO, JULIET K 786.2 COUGH 12/23/2012 BELTRAN DO, JULIET K 786.2 COUGH 12/23/2012 BELTRAN DO, JULIET K 786.2 COUGH 12/23/2012 BELTRAN DO, JULIET K 786.2 COUGH 12/23/2012 LUCA DPM, KELLE 786.2 COUGH 12/23/2012 AUDRA LEASE BROKER, RAHUL R 786.2 COUGH 12/23/2012 BELTRAN DO, JULIET K 786.2 COUGH 12/23/2012 BELTRAN DO, JULIET K 786.2 COUGH 12/23/2012 BELTRAN DO, JULIET K 786.2 COUGH 12/23/2012 BELTRAN DO, JULIET K 786.2 COUGH 12/23/2012 BELTRAN DO, JULIET K 786.2 COUGH 12/23/2012 BELTRAN DO, JULIET K 786.2 COUGH 12/23/2012 CHRIS STEVENSON MD N 786.2 COUGH 12/23/2012 GRAHAM ESTRELLA, CHRIS N 786.2 COUGH 12/23/2012 BELTRAN DO, JULIET K 786.2 COUGH 12/23/2012 BELTRAN DO, JULIET K 786.2 COUGH 12/23/2012 CHRIS STEVENSON MD N 786.2 COUGH 12/23/2012 CHRIS STEVENSON MD N 786.2 COUGH 12/23/2012 BELTRAN DO, JULIET K 786.2 COUGH 12/23/2012 CHRIS STEVENSON MD N 786.2 COUGH 12/23/2012 BELTRAN DO, JULIET K 786.2 COUGH 01/14/2013 BELTRAN DO, JULIET K 796.2 ELEVATED BLOOD PRESSURE READING WITHOUT DIAGNOSIS OF HYPERTENSION 01/14/2013 BELTRAN DO, JULIET K 796.2 ELEVATED BLOOD PRESSURE READING WITHOUT DIAGNOSIS OF HYPERTENSION 01/14/2013 BELTRAN DO, JULIET K 796.2 ELEVATED BLOOD PRESSURE READING WITHOUT DIAGNOSIS OF HYPERTENSION 01/14/2013 BELTRAN DO, JULIET K 796.2 ELEVATED BLOOD PRESSURE READING WITHOUT DIAGNOSIS OF HYPERTENSION 01/14/2013 BELTRAN DO, JULIET K 796.2 ELEVATED BLOOD PRESSURE READING WITHOUT DIAGNOSIS OF HYPERTENSION 01/14/2013 BELTRAN DO, JULIET K 796.2 ELEVATED BLOOD PRESSURE READING WITHOUT DIAGNOSIS OF HYPERTENSION 01/14/2013 CHRIS STEVENSON MD 796.2 ELEVATED BLOOD PRESSURE READING WITHOUT DIAGNOSIS OF HYPERTENSION 01/14/2013 BELTRAN DO, JULIET K 796.2 ELEVATED BLOOD PRESSURE READING WITHOUT DIAGNOSIS OF HYPERTENSION 01/14/2013 BELTRAN DO, JULIET K 796.2 ELEVATED BLOOD PRESSURE READING WITHOUT DIAGNOSIS OF HYPERTENSION 01/14/2013 BELTRAN DO, JULIET K 796.2 ELEVATED BLOOD PRESSURE READING WITHOUT DIAGNOSIS OF HYPERTENSION 01/14/2013 BELTRAN DO, JULIET K 796.2 ELEVATED BLOOD PRESSURE READING WITHOUT DIAGNOSIS OF HYPERTENSION 01/14/2013 BELTRAN DO, JULIET K 796.2 ELEVATED BLOOD PRESSURE READING WITHOUT DIAGNOSIS OF HYPERTENSION 01/14/2013 BELTRAN DO, JULIET K 796.2 ELEVATED BLOOD PRESSURE READING WITHOUT DIAGNOSIS OF HYPERTENSION 01/14/2013 BELTRAN DO, JULIET K 796.2 ELEVATED BLOOD PRESSURE READING WITHOUT DIAGNOSIS OF HYPERTENSION 01/14/2013 BELTRAN DO, JULIET K 796.2 ELEVATED BLOOD PRESSURE READING WITHOUT DIAGNOSIS OF HYPERTENSION 01/14/2013 BELTRAN DO, JULIET K 796.2 ELEVATED BLOOD PRESSURE READING WITHOUT DIAGNOSIS OF HYPERTENSION 01/14/2013 BELTRAN DO, JULIET K 796.2 ELEVATED BLOOD PRESSURE READING WITHOUT DIAGNOSIS OF HYPERTENSION 01/14/2013 BELTRAN DO, JULIET K 796.2 ELEVATED BLOOD PRESSURE READING WITHOUT DIAGNOSIS OF HYPERTENSION 01/14/2013 BELTRAN DO, JULIET K 796.2 ELEVATED BLOOD PRESSURE READING WITHOUT DIAGNOSIS OF HYPERTENSION 01/14/2013 BELTRAN DO, JULIET K 796.2 ELEVATED BLOOD PRESSURE READING WITHOUT DIAGNOSIS OF HYPERTENSION 01/14/2013 CHRIS STEVENSON MD N 796.2 ELEVATED BLOOD PRESSURE READING WITHOUT DIAGNOSIS OF HYPERTENSION 01/14/2013 BELTRAN DO, JULIET K 796.2 ELEVATED BLOOD PRESSURE READING WITHOUT DIAGNOSIS OF HYPERTENSION 01/14/2013 BELTRAN DO, JULIET K 796.2 ELEVATED BLOOD PRESSURE READING WITHOUT DIAGNOSIS OF HYPERTENSION 01/14/2013 BELTRAN DO, JULIET K 796.2 ELEVATED BLOOD PRESSURE READING WITHOUT DIAGNOSIS OF HYPERTENSION 01/14/2013 BELTRAN DO, JULIET K 796.2 ELEVATED BLOOD PRESSURE READING WITHOUT DIAGNOSIS OF HYPERTENSION 01/14/2013 BELTRAN DO, JULIET K 796.2 ELEVATED BLOOD PRESSURE READING WITHOUT DIAGNOSIS OF HYPERTENSION 01/14/2013 BELTRAN DO, JULIET K 796.2 ELEVATED BLOOD PRESSURE READING WITHOUT DIAGNOSIS OF HYPERTENSION 01/14/2013 CHRIS STEVENSON MD N 796.2 ELEVATED BLOOD PRESSURE READING WITHOUT DIAGNOSIS OF HYPERTENSION 01/14/2013 CHRIS STEVENSON MD 796.2 ELEVATED BLOOD PRESSURE READING WITHOUT DIAGNOSIS OF HYPERTENSION 01/14/2013 BELTRAN DO, JULIET K 796.2 ELEVATED BLOOD PRESSURE READING WITHOUT DIAGNOSIS OF HYPERTENSION 01/14/2013 BELTRAN DO, JULIET K 796.2 ELEVATED BLOOD PRESSURE READING WITHOUT DIAGNOSIS OF HYPERTENSION 01/14/2013 BELTRAN DO, JULIET K 796.2 ELEVATED BLOOD PRESSURE READING WITHOUT DIAGNOSIS OF HYPERTENSION 01/14/2013 BELTRAN DO, JULIET K 796.2 ELEVATED BLOOD PRESSURE READING WITHOUT DIAGNOSIS OF HYPERTENSION 01/14/2013 BELTRAN DO, JULIET K 796.2 ELEVATED BLOOD PRESSURE READING WITHOUT DIAGNOSIS OF HYPERTENSION 01/14/2013 BELTRAN DO, JULIET K 796.2 ELEVATED BLOOD PRESSURE READING WITHOUT DIAGNOSIS OF HYPERTENSION 01/14/2013 LUCA ROBBINS, KELLE 796.2 ELEVATED BLOOD PRESSURE READING WITHOUT DIAGNOSIS OF HYPERTENSION 01/14/2013 AUDRA LEASE BROKER, RAHUL R 796.2 ELEVATED BLOOD PRESSURE READING WITHOUT DIAGNOSIS OF HYPERTENSION 01/14/2013 BELTRAN DO, JULIET K 796.2 ELEVATED BLOOD PRESSURE READING WITHOUT DIAGNOSIS OF HYPERTENSION 01/14/2013 BELTRAN DO, JULIET K 796.2 ELEVATED BLOOD PRESSURE READING WITHOUT DIAGNOSIS OF HYPERTENSION 01/14/2013 BELTRAN DO, JULIET K 796.2 ELEVATED BLOOD PRESSURE READING WITHOUT DIAGNOSIS OF HYPERTENSION 01/14/2013 BELTARN DO, JULIET K 796.2 ELEVATED BLOOD PRESSURE READING WITHOUT DIAGNOSIS OF HYPERTENSION 01/14/2013 BELTRAN DO, JULIET K 796.2 ELEVATED BLOOD PRESSURE READING WITHOUT DIAGNOSIS OF HYPERTENSION 01/14/2013 BELTRAN DO, JULIET K 796.2 ELEVATED BLOOD PRESSURE READING WITHOUT DIAGNOSIS OF HYPERTENSION 01/14/2013 CHRIS STEVENSON MD N 796.2 ELEVATED BLOOD PRESSURE READING WITHOUT DIAGNOSIS OF HYPERTENSION 01/14/2013 CHRIS STEVENSON MD 796.2 ELEVATED BLOOD PRESSURE READING WITHOUT DIAGNOSIS OF HYPERTENSION 01/14/2013 BELTRAN DO, JULIET K 796.2 ELEVATED BLOOD PRESSURE READING WITHOUT DIAGNOSIS OF HYPERTENSION 01/14/2013 BELTRAN DO, JULIET K 796.2 ELEVATED BLOOD PRESSURE READING WITHOUT DIAGNOSIS OF HYPERTENSION 01/14/2013 CHRIS STEVENSON MD N 796.2 ELEVATED BLOOD PRESSURE READING WITHOUT DIAGNOSIS OF HYPERTENSION 01/14/2013 CHRIS STEVENSON MD N 796.2 ELEVATED BLOOD PRESSURE READING WITHOUT DIAGNOSIS OF HYPERTENSION 01/14/2013 BELTRAN DO, JULIET K 796.2 ELEVATED BLOOD PRESSURE READING WITHOUT DIAGNOSIS OF HYPERTENSION 01/14/2013 CHRIS STEVENSON MD 796.2 ELEVATED BLOOD PRESSURE READING WITHOUT DIAGNOSIS OF HYPERTENSION 01/14/2013 BELTRAN DO, JULIET K 796.2 ELEVATED BLOOD PRESSURE READING WITHOUT DIAGNOSIS OF HYPERTENSION 01/24/2013 BELTRAN DO, JULIET K 780.99 OTHER GENERAL SYMPTOMS 01/24/2013 BELTRAN DO, JULIET K 784.42 DYSPHONIA 01/24/2013 BELTRAN DO, JULIET K 780.99 OTHER GENERAL SYMPTOMS 01/24/2013 BELTRAN DO, JULIET K 784.42 DYSPHONIA 01/24/2013 BELTRAN DO, JULIET K 780.99 OTHER GENERAL SYMPTOMS 01/24/2013 BELTRAN DO, JULIET K 784.42 DYSPHONIA 01/24/2013 BELTRAN DO, JULIET K 780.99 OTHER GENERAL SYMPTOMS 01/24/2013 BELTRAN DO, JULIET K 784.42 DYSPHONIA 01/24/2013 BELTRAN DO, JULIET K 780.99 OTHER GENERAL SYMPTOMS 01/24/2013 BELTRAN DO, JULIET K 784.42 DYSPHONIA 01/24/2013 CHRIS STEVENSON MD N 780.99 OTHER GENERAL SYMPTOMS 01/24/2013 CHRIS STEVENSON MD N 784.42 DYSPHONIA 01/24/2013 BELTRAN DO, JULIET K 780.99 OTHER GENERAL SYMPTOMS 01/24/2013 BELTRAN DO, JULIET K 784.42 DYSPHONIA 01/24/2013 BELTRAN DO, JULIET K 780.99 OTHER GENERAL SYMPTOMS 01/24/2013 BELTRAN DO, JULIET K 784.42 DYSPHONIA 01/24/2013 BELTRAN DO, JULIET K 780.99 OTHER GENERAL SYMPTOMS 01/24/2013 BELTRAN DO, JULIET K 784.42 DYSPHONIA 01/24/2013 BELTRAN DO, JULIET K 780.99 OTHER GENERAL SYMPTOMS 01/24/2013 BELTRAN DO, JULIET K 784.42 DYSPHONIA 01/24/2013 BELTRAN DO, JULIET K 780.99 OTHER GENERAL SYMPTOMS 01/24/2013 BELTRAN DO, JULIET K 784.42 DYSPHONIA 01/24/2013 BELTRAN DO, JULIET K 780.99 OTHER GENERAL SYMPTOMS 01/24/2013 BELTRAN DO, JULIET K 784.42 DYSPHONIA 01/24/2013 BELTRAN DO, JULIET K 780.99 OTHER GENERAL SYMPTOMS 01/24/2013 BELTRAN DO, JULIET K 784.42 DYSPHONIA 01/24/2013 BELTRAN DO, JULIET K 780.99 OTHER GENERAL SYMPTOMS 01/24/2013 BELTRAN DO, JULIET K 784.42 DYSPHONIA 01/24/2013 BELTRAN DO, JULIET K 780.99 OTHER GENERAL SYMPTOMS 01/24/2013 BELTRAN DO, JULIET K 784.42 DYSPHONIA 01/24/2013 BELTRAN DO, JULIET K 780.99 OTHER GENERAL SYMPTOMS 01/24/2013 BELTRAN DO, JULIET K 784.42 DYSPHONIA 01/24/2013 BELTRAN DO, JULIET K 780.99 OTHER GENERAL SYMPTOMS 01/24/2013 BELTRAN DO, JULIET K 784.42 DYSPHONIA 01/24/2013 BELTRAN DO, JULIET K 780.99 OTHER GENERAL SYMPTOMS 01/24/2013 BELTRAN DO, JULIET K 784.42 DYSPHONIA 01/24/2013 BELTRAN DO, JULIET K 780.99 OTHER GENERAL SYMPTOMS 01/24/2013 BELTRAN DO, JULIET K 784.42 DYSPHONIA 01/24/2013 CHRIS STEVENSON MD N 780.99 OTHER GENERAL SYMPTOMS 01/24/2013 CHRIS STEVENSON MD N 784.42 DYSPHONIA 01/24/2013 BELTRAN DO, JULIET K 780.99 OTHER GENERAL SYMPTOMS 01/24/2013 BELTRAN DO, JULIET K 784.42 DYSPHONIA 01/24/2013 BELTRAN DO, JULIET K 780.99 OTHER GENERAL SYMPTOMS 01/24/2013 BELTRAN DO, JULIET K 784.42 DYSPHONIA 01/24/2013 EBLTRAN DO, JULIET K 780.99 OTHER GENERAL SYMPTOMS 01/24/2013 BELTRAN DO, JULIET K 784.42 DYSPHONIA 01/24/2013 BELTRAN DO, JULIET K 780.99 OTHER GENERAL SYMPTOMS 01/24/2013 BELTRAN DO, JULIET K 784.42 DYSPHONIA 01/24/2013 BELTRAN DO, JULIET K 780.99 OTHER GENERAL SYMPTOMS 01/24/2013 BELTRAN DO, JULIET K 784.42 DYSPHONIA 01/24/2013 BELTRAN DO, JULIET K 780.99 OTHER GENERAL SYMPTOMS 01/24/2013 BELTRAN DO, JULIET K 784.42 DYSPHONIA 01/24/2013 CHRIS STEVENSON MD N 780.99 OTHER GENERAL SYMPTOMS 01/24/2013 CHRIS STEVENSON MD N 784.42 DYSPHONIA 01/24/2013 CHRIS STEVENSON MD N 780.99 OTHER GENERAL SYMPTOMS 01/24/2013 CHRIS STEVENSON MD N 784.42 DYSPHONIA 01/24/2013 BELTRAN DO, JULIET K 780.99 OTHER GENERAL SYMPTOMS 01/24/2013 BELTRAN DO, JULIET K 784.42 DYSPHONIA 01/24/2013 BELTRAN DO, JULIET K 780.99 OTHER GENERAL SYMPTOMS 01/24/2013 BELTRAN DO, JULIET K 784.42 DYSPHONIA 01/24/2013 BELTRAN DO, JULIET K 780.99 OTHER GENERAL SYMPTOMS 01/24/2013 BELTRAN DO, JULIET K 784.42 DYSPHONIA 01/24/2013 BELTRAN DO, JULIET K 780.99 OTHER GENERAL SYMPTOMS 01/24/2013 BELTRAN DO, JULIET K 784.42 DYSPHONIA 01/24/2013 BELTRAN DO, JULIET K 780.99 OTHER GENERAL SYMPTOMS 01/24/2013 BELTRAN DO, JULIET K 784.42 DYSPHONIA 01/24/2013 BELTRAN DO, JULIET K 780.99 OTHER GENERAL SYMPTOMS 01/24/2013 BELTRAN DO, JULIET K 784.42 DYSPHONIA 01/24/2013 LUCA DPM, KELLE 780.99 OTHER GENERAL SYMPTOMS 01/24/2013 LUCA DPM, KELLE 784.42 DYSPHONIA 01/24/2013 ZHU LEASE BROKER, RAHUL R 780.99 OTHER GENERAL SYMPTOMS 01/24/2013 ZHU LEASE BROKER, RAHUL R 784.42 DYSPHONIA 01/24/2013 BELTRAN DO, JULIET K 780.99 OTHER GENERAL SYMPTOMS 01/24/2013 BELTRAN DO, JULIET K 784.42 DYSPHONIA 01/24/2013 BELTRAN DO, JULIET K 780.99 OTHER GENERAL SYMPTOMS 01/24/2013 BELTRAN DO, JULIET K 784.42 DYSPHONIA 01/24/2013 BELTRAN DO, JULIET K 780.99 OTHER GENERAL SYMPTOMS 01/24/2013 BELTRAN DO, JULIET K 784.42 DYSPHONIA 01/24/2013 BELTRAN DO, JULIET K 780.99 OTHER GENERAL SYMPTOMS 01/24/2013 BELTRAN DO, JULIET K 784.42 DYSPHONIA 01/24/2013 BELTRAN DO, JULIET K 780.99 OTHER GENERAL SYMPTOMS 01/24/2013 BELTRAN DO, JULIET K 784.42 DYSPHONIA 01/24/2013 BELTRAN DO, JULIET K 780.99 OTHER GENERAL SYMPTOMS 01/24/2013 BELTRAN DO, JULIET K 784.42 DYSPHONIA 01/24/2013 CHRIS STEVENSON MD N 780.99 OTHER GENERAL SYMPTOMS 01/24/2013 CHRIS STEVENSON MD N 784.42 DYSPHONIA 01/24/2013 CHRIS STEVENSON MD N 780.99 OTHER GENERAL SYMPTOMS 01/24/2013 CHRIS STEVENSON MD N 784.42 DYSPHONIA 01/24/2013 BELTRAN DO, JULIET K 780.99 OTHER GENERAL SYMPTOMS 01/24/2013 BELTRAN DO, JULIET K 784.42 DYSPHONIA 01/24/2013 BELTRAN DO, JULIET K 780.99 OTHER GENERAL SYMPTOMS 01/24/2013 BELTRAN DO, JULIET K 784.42 DYSPHONIA 01/24/2013 CHRIS STEVENSON MD N 780.99 OTHER GENERAL SYMPTOMS 01/24/2013 CHRIS STEVENSON MD N 784.42 DYSPHONIA 01/24/2013 CHRIS STEVENSON MD N 780.99 OTHER GENERAL SYMPTOMS 01/24/2013 CHRIS STEVENSON MD N 784.42 DYSPHONIA 01/24/2013 BELTRAN DO, JULIET K 780.99 OTHER GENERAL SYMPTOMS 01/24/2013 BELTRAN DO, JULIET K 784.42 DYSPHONIA 01/24/2013 CHRIS STEVENSON MD N 780.99 OTHER GENERAL SYMPTOMS 01/24/2013 CHRIS STEVENSON MD N 784.42 DYSPHONIA 01/24/2013 BELTRAN DO, JULIET K 780.99 OTHER GENERAL SYMPTOMS 01/24/2013 BELTRAN DO, JULIET K 784.42 DYSPHONIA 04/06/2013 BELTRAN DO, JULIET K 704.00 ALOPECIA UNSPECIFIED 04/06/2013 BELTRAN DO, JULIET K 704.00 ALOPECIA UNSPECIFIED 04/06/2013 BELTRAN DO, JULIET K 704.00 ALOPECIA UNSPECIFIED 04/06/2013 CHRIS STEVENSON MD 704.00 ALOPECIA UNSPECIFIED 04/06/2013 BELTRAN DO, JULIET K 704.00 ALOPECIA UNSPECIFIED 04/06/2013 BELTRAN DO, JULIET K 704.00 ALOPECIA UNSPECIFIED 04/06/2013 BELTRAN DO, JULIET K 704.00 ALOPECIA UNSPECIFIED 04/06/2013 BELTRAN DO, JULIET K 704.00 ALOPECIA UNSPECIFIED 04/06/2013 BELTRAN DO, JULIET K 704.00 ALOPECIA UNSPECIFIED 04/06/2013 BELTRAN DO, JULIET K 704.00 ALOPECIA UNSPECIFIED 04/06/2013 BELTRAN DO, JULIET K 704.00 ALOPECIA UNSPECIFIED 04/06/2013 BELTRAN DO, JULIET K 704.00 ALOPECIA UNSPECIFIED 04/06/2013 BELTRAN DO, JULIET K 704.00 ALOPECIA UNSPECIFIED 04/06/2013 BELTRAN DO, JULIET K 704.00 ALOPECIA UNSPECIFIED 04/06/2013 BELTRAN DO, JULIET K 704.00 ALOPECIA UNSPECIFIED 04/06/2013 BELTRAN DO, JULIET K 704.00 ALOPECIA UNSPECIFIED 04/06/2013 BELTRAN DO, JULIET K 704.00 ALOPECIA UNSPECIFIED 04/06/2013 CHRIS STEVENSON MD N 704.00 ALOPECIA UNSPECIFIED 04/06/2013 BELTRAN DO, JULIET K 704.00 ALOPECIA UNSPECIFIED 04/06/2013 BELTRAN DO, JULIET K 704.00 ALOPECIA UNSPECIFIED 04/06/2013 BELTRAN DO, JULIET K 704.00 ALOPECIA UNSPECIFIED 04/06/2013 EBLTRAN DO, JULIET K 704.00 ALOPECIA UNSPECIFIED 04/06/2013 BELTRAN DO, JULIET K 704.00 ALOPECIA UNSPECIFIED 04/06/2013 BELTRAN DO, JULIET K 704.00 ALOPECIA UNSPECIFIED 04/06/2013 CHRIS STEVENSON MD N 704.00 ALOPECIA UNSPECIFIED 04/06/2013 CHRIS STEVENSON MD N 704.00 ALOPECIA UNSPECIFIED 04/06/2013 BELTRAN DO, JULIET K 704.00 ALOPECIA UNSPECIFIED 04/06/2013 BELTRAN DO, JULIET K 704.00 ALOPECIA UNSPECIFIED 04/06/2013 BELTRAN DO, JULIET K 704.00 ALOPECIA UNSPECIFIED 04/06/2013 BELTRAN DO, JULIET K 704.00 ALOPECIA UNSPECIFIED 04/06/2013 BELTRAN DO, JULIET K 704.00 ALOPECIA UNSPECIFIED 04/06/2013 BELTRAN DO, JULIET K 704.00 ALOPECIA UNSPECIFIED 04/06/2013 KELLE DIAZ DPM 704.00 ALOPECIA UNSPECIFIED 04/06/2013 AUDRA ZAMORAN, RAHUL R 704.00 ALOPECIA UNSPECIFIED 04/06/2013 BELTRAN DO, JULIET K 704.00 ALOPECIA UNSPECIFIED 04/06/2013 BELTRAN DO, JULIET K 704.00 ALOPECIA UNSPECIFIED 04/06/2013 BELTRAN DO, JULIET K 704.00 ALOPECIA UNSPECIFIED 04/06/2013 BELTRAN DO, JULIET K 704.00 ALOPECIA UNSPECIFIED 04/06/2013 BELTRAN DO, JULIET K 704.00 ALOPECIA UNSPECIFIED 04/06/2013 BELTRAN DO, JULIET K 704.00 ALOPECIA UNSPECIFIED 04/06/2013 GRAHAM ESTRELLA, CHRIS N 704.00 ALOPECIA UNSPECIFIED 04/06/2013 GRAHAM ESTRELLA, CHRIS N 704.00 ALOPECIA UNSPECIFIED 04/06/2013 BELTRAN DO, JULIET K 704.00 ALOPECIA UNSPECIFIED 04/06/2013 BELTRAN DO, JULIET K 704.00 ALOPECIA UNSPECIFIED 04/06/2013 GRAHAM ESTRELLA, CHRIS N 704.00 ALOPECIA UNSPECIFIED 04/06/2013 GRAHAM ESTRELLA, CHRIS N 704.00 ALOPECIA UNSPECIFIED 04/06/2013 BELTRAN DO, JULIET K 704.00 ALOPECIA UNSPECIFIED 04/06/2013 CHRIS STEVENSON MD N 704.00 ALOPECIA UNSPECIFIED 04/06/2013 BELTRAN DO, JULIET K 704.00 ALOPECIA UNSPECIFIED 04/19/2013 BELTRAN DO, JULIET K V72.83 OTHER SPECIFIED PRE-OPERATIVE EXAMINATION 04/19/2013 BELTRAN DO, JULIET K V72.83 OTHER SPECIFIED PRE-OPERATIVE EXAMINATION 04/19/2013 CHRIS STEVENSON MD N V72.83 OTHER SPECIFIED PRE-OPERATIVE EXAMINATION 04/19/2013 BELTRAN DO, JULIET K V72.83 OTHER SPECIFIED PRE-OPERATIVE EXAMINATION 04/19/2013 BELTRAN DO, JULIET K V72.83 OTHER SPECIFIED PRE-OPERATIVE EXAMINATION 04/19/2013 BELTRAN DO, JULIET K V72.83 OTHER SPECIFIED PRE-OPERATIVE EXAMINATION 04/19/2013 BELTRAN DO, JULIET K V72.83 OTHER SPECIFIED PRE-OPERATIVE EXAMINATION 04/19/2013 BELTRAN DO, JULIET K V72.83 OTHER SPECIFIED PRE-OPERATIVE EXAMINATION 04/19/2013 BELTRAN DO, JULIET K V72.83 OTHER SPECIFIED PRE-OPERATIVE EXAMINATION 04/19/2013 BELTRAN DO, JULIET K V72.83 OTHER SPECIFIED PRE-OPERATIVE EXAMINATION 04/19/2013 BELTRAN DO, JULIET K V72.83 OTHER SPECIFIED PRE-OPERATIVE EXAMINATION 04/19/2013 BELTRAN DO, JULIET K V72.83 OTHER SPECIFIED PRE-OPERATIVE EXAMINATION 04/19/2013 BELTRAN DO, JULIET K V72.83 OTHER SPECIFIED PRE-OPERATIVE EXAMINATION 04/19/2013 BELTRAN DO, JULIET K V72.83 OTHER SPECIFIED PRE-OPERATIVE EXAMINATION 04/19/2013 BELTRAN DO, JULIET K V72.83 OTHER SPECIFIED PRE-OPERATIVE EXAMINATION 04/19/2013 BELTRAN DO, JULIET K V72.83 OTHER SPECIFIED PRE-OPERATIVE EXAMINATION 04/19/2013 CHRIS STEVENSON MD V72.83 OTHER SPECIFIED PRE-OPERATIVE EXAMINATION 04/19/2013 BELTRAN DO, JULIET K V72.83 OTHER SPECIFIED PRE-OPERATIVE EXAMINATION 04/19/2013 BELTRAN DO, JULIET K V72.83 OTHER SPECIFIED PRE-OPERATIVE EXAMINATION 04/19/2013 BELTRAN DO, JULIET K V72.83 OTHER SPECIFIED PRE-OPERATIVE EXAMINATION 04/19/2013 BELTRAN DO, JULIET K V72.83 OTHER SPECIFIED PRE-OPERATIVE EXAMINATION 04/19/2013 BELTRAN DO, JULIET K V72.83 OTHER SPECIFIED PRE-OPERATIVE EXAMINATION 04/19/2013 BELTRAN DO, JULIET K V72.83 OTHER SPECIFIED PRE-OPERATIVE EXAMINATION 04/19/2013 CHRIS STEVENSON MD V72.83 OTHER SPECIFIED PRE-OPERATIVE EXAMINATION 04/19/2013 CHRIS STEVENSON MD V72.83 OTHER SPECIFIED PRE-OPERATIVE EXAMINATION 04/19/2013 BELTRAN DO, JULIET K V72.83 OTHER SPECIFIED PRE-OPERATIVE EXAMINATION 04/19/2013 BELTRAN DO, JULIET K V72.83 OTHER SPECIFIED PRE-OPERATIVE EXAMINATION 04/19/2013 BELTRAN DO, JULIET K V72.83 OTHER SPECIFIED PRE-OPERATIVE EXAMINATION 04/19/2013 BELTRAN DO, JULIET K V72.83 OTHER SPECIFIED PRE-OPERATIVE EXAMINATION 04/19/2013 BELTRAN DO, JULIET K V72.83 OTHER SPECIFIED PRE-OPERATIVE EXAMINATION 04/19/2013 BELTRAN DO, JULIET K V72.83 OTHER SPECIFIED PRE-OPERATIVE EXAMINATION 04/19/2013 LUCA DPM, KELLE V72.83 OTHER SPECIFIED PRE-OPERATIVE EXAMINATION 04/19/2013 ZHU RAHUL DIAZ V72.83 OTHER SPECIFIED PRE-OPERATIVE EXAMINATION 04/19/2013 BELTRAN DO, JULIET K V72.83 OTHER SPECIFIED PRE-OPERATIVE EXAMINATION 04/19/2013 BELTRAN DO, JULIET K V72.83 OTHER SPECIFIED PRE-OPERATIVE EXAMINATION 04/19/2013 BELTRAN DO, JULIET K V72.83 OTHER SPECIFIED PRE-OPERATIVE EXAMINATION 04/19/2013 BELTRAN DO, JULIET K V72.83 OTHER SPECIFIED PRE-OPERATIVE EXAMINATION 04/19/2013 BELTRAN DO, JULIET K V72.83 OTHER SPECIFIED PRE-OPERATIVE EXAMINATION 04/19/2013 BELTRAN DO, JULIET K V72.83 OTHER SPECIFIED PRE-OPERATIVE EXAMINATION 04/19/2013 CHRIS STEVENSON MD V72.83 OTHER SPECIFIED PRE-OPERATIVE EXAMINATION 04/19/2013 CHRIS STEVENSON MD V72.83 OTHER SPECIFIED PRE-OPERATIVE EXAMINATION 04/19/2013 BELTRAN DO, JULIET K V72.83 OTHER SPECIFIED PRE-OPERATIVE EXAMINATION 04/19/2013 BELTRAN DO, JULIET K V72.83 OTHER SPECIFIED PRE-OPERATIVE EXAMINATION 04/19/2013 CHRIS STEVENSON MD V72.83 OTHER SPECIFIED PRE-OPERATIVE EXAMINATION 04/19/2013 CHRIS STEVENSON MD V72.83 OTHER SPECIFIED PRE-OPERATIVE EXAMINATION 04/19/2013 BELTRAN DO, JULIET K V72.83 OTHER SPECIFIED PRE-OPERATIVE EXAMINATION 04/19/2013 CHRIS STEVENSON MD V72.83 OTHER SPECIFIED PRE-OPERATIVE EXAMINATION 04/19/2013 BELTRAN DO, JULIET K V72.83 OTHER SPECIFIED PRE-OPERATIVE EXAMINATION 06/01/2013 BELTRAN DO, JULIET K 278.00 OBESITY 06/01/2013 BELTRAN DO, JULIET K 786.09 DYSPNEA 06/01/2013 CHRIS STEVENSON MD 278.00 OBESITY 06/01/2013 CHRIS STEVNESON MD 786.09 DYSPNEA 06/01/2013 BELTRAN DO, JULIET K 278.00 OBESITY 06/01/2013 BELTRAN DO, JULIET K 786.09 DYSPNEA 06/01/2013 BELTRAN DO, JULIET K 278.00 OBESITY 06/01/2013 BELTRAN DO, JULIET K 786.09 DYSPNEA 06/01/2013 BELTRAN DO, JULIET K 278.00 OBESITY 06/01/2013 BELTRAN DO, JULIET K 786.09 DYSPNEA 06/01/2013 BELTRAN DO, JULIET K 278.00 OBESITY 06/01/2013 BELTRAN DO, JULIET K 786.09 DYSPNEA 06/01/2013 BELTRAN DO, JULIET K 278.00 OBESITY 06/01/2013 BELTRAN DO, JULIET K 786.09 DYSPNEA 06/01/2013 BELTRAN DO, JULIET K 278.00 OBESITY 06/01/2013 BELTRAN DO, JULIET K 786.09 DYSPNEA 06/01/2013 BELTRAN DO, JULIET K 278.00 OBESITY 06/01/2013 BELTRAN DO, JULIET K 786.09 DYSPNEA 06/01/2013 BELTRAN DO, JULIET K 278.00 OBESITY 06/01/2013 BELTRAN DO, JULIET K 786.09 DYSPNEA 06/01/2013 BELTRAN DO, JULIET K 278.00 OBESITY 06/01/2013 BELTRAN DO, JULIET K 786.09 DYSPNEA 06/01/2013 BELTRAN DO, JULIET K 278.00 OBESITY 06/01/2013 BELTRAN DO, JULIET K 786.09 DYSPNEA 06/01/2013 BELTRAN DO, JULIET K 278.00 OBESITY 06/01/2013 BELTRAN DO, JULIET K 786.09 DYSPNEA 06/01/2013 BELTRAN DO, JULIET K 278.00 OBESITY 06/01/2013 BELTRAN DO, JULIET K 786.09 DYSPNEA 06/01/2013 BELTRAN DO, JULIET K 278.00 OBESITY 06/01/2013 BELTRAN DO, JULIET K 786.09 DYSPNEA 06/01/2013 GRAHAM ESTRELLA, CHRIS N 278.00 OBESITY 06/01/2013 CHRIS STEVENSON MD 786.09 DYSPNEA 06/01/2013 BELTRAN DO, JULIET K 278.00 OBESITY 06/01/2013 BELTRAN DO, JULIET K 786.09 DYSPNEA 06/01/2013 BELTRAN DO, JULIET K 278.00 OBESITY 06/01/2013 BELTRAN DO, JULIET K 786.09 DYSPNEA 06/01/2013 BELTRAN DO, JULIET K 278.00 OBESITY 06/01/2013 BELTRAN DO, JULIET K 786.09 DYSPNEA 06/01/2013 BELTRAN DO, JULIET K 278.00 OBESITY 06/01/2013 BELTRAN DO, JULIET K 786.09 DYSPNEA 06/01/2013 BELTRAN DO, JULIET K 278.00 OBESITY 06/01/2013 BELTRAN DO, JULIET K 786.09 DYSPNEA 06/01/2013 BELTRAN DO, JULIET K 278.00 OBESITY 06/01/2013 BELTRAN DO, JULIET K 786.09 DYSPNEA 06/01/2013 GRAHAM ESTRELLA, CHRIS N 278.00 OBESITY 06/01/2013 GRAHAM ESTRELLA, CHRIS Steiner 786.09 DYSPNEA 06/01/2013 GRAHAM ESTRELLA, CHRIS N 278.00 OBESITY 06/01/2013 GRAHAM ESTRELLA, CHRIS N 786.09 DYSPNEA 06/01/2013 BELTRAN DO, JULIET K 278.00 OBESITY 06/01/2013 BELTRAN DO, JULIET K 786.09 DYSPNEA 06/01/2013 BELTRAN DO, JULIET K 278.00 OBESITY 06/01/2013 BELTRAN DO, JULIET K 786.09 DYSPNEA 06/01/2013 BELTRAN DO, JULIET K 278.00 OBESITY 06/01/2013 BELTRAN DO, JULIET K 786.09 DYSPNEA 06/01/2013 BELTRAN DO, JULIET K 278.00 OBESITY 06/01/2013 BELTRAN DO, JULIET K 786.09 DYSPNEA 06/01/2013 BELTRAN DO, JULIET K 278.00 OBESITY 06/01/2013 BELTRAN DO, JULIET K 786.09 DYSPNEA 06/01/2013 BELTRAN DO, JULIET K 278.00 OBESITY 06/01/2013 BELTRAN DO, JULIET K 786.09 DYSPNEA 06/01/2013 LUCA DPM, KELLE 278.00 OBESITY 06/01/2013 LUCA DPM, KELLE 786.09 DYSPNEA 06/01/2013 AUDRA DIAZ, RAHUL R 278.00 OBESITY 06/01/2013 AUDRA LEASE BROKER, RAHUL R 786.09 DYSPNEA 06/01/2013 BELTRAN DO, JULIET K 278.00 OBESITY 06/01/2013 BELTRAN DO, JULIET K 786.09 DYSPNEA 06/01/2013 BELTRAN DO, JULIET K 278.00 OBESITY 06/01/2013 BELTRAN DO, JULIET K 786.09 DYSPNEA 06/01/2013 BELTRAN DO, JULIET K 278.00 OBESITY 06/01/2013 BELTRAN DO, JULIET K 786.09 DYSPNEA 06/01/2013 BELTRAN DO, JULIET K 278.00 OBESITY 06/01/2013 BELTRAN DO, JULIET K 786.09 DYSPNEA 06/01/2013 BELTRAN DO, JULIET K 278.00 OBESITY 06/01/2013 BELTRAN DO, JULIET K 786.09 DYSPNEA 06/01/2013 BELTRAN DO, JULIET K 278.00 OBESITY 06/01/2013 BELTRAN DO, JULIET K 786.09 DYSPNEA 06/01/2013 GRAHAM ESTRELLA, CHRIS N 278.00 OBESITY 06/01/2013 GRAHAM ESTRELLA, CHRIS N 786.09 DYSPNEA 06/01/2013 GRAHAM ESTRELLA, CHRIS N 278.00 OBESITY 06/01/2013 GRAHAM ESTRELLA, CHRIS N 786.09 DYSPNEA 06/01/2013 BELTRAN DO, JULIET K 278.00 OBESITY 06/01/2013 BELTRAN DO, JULIET K 786.09 DYSPNEA 06/01/2013 BELTRAN DO, JULIET K 278.00 OBESITY 06/01/2013 BELTRAN DO, JULIET K 786.09 DYSPNEA 06/01/2013 GRAHAM ESTRELLA, CRHIS N 278.00 OBESITY 06/01/2013 GRAHAM ESTRELLA, CHRIS N 786.09 DYSPNEA 06/01/2013 GRAHAM ESTRELLA, CHRIS N 278.00 OBESITY 06/01/2013 GRAHAM ESTRELLA, CHRIS N 786.09 DYSPNEA 06/01/2013 BELTRAN DO, JULIET K 278.00 OBESITY 06/01/2013 BELTRAN DO, JULIET K 786.09 DYSPNEA 06/01/2013 GRAHAM ESTRELLA, CHRIS N 278.00 OBESITY 06/01/2013 CHRIS STEVENSON MD N 786.09 DYSPNEA 06/01/2013 BELTRAN DO, JULIET K 278.00 OBESITY 06/01/2013 BELTRAN DO, JULIET K 786.09 DYSPNEA 06/10/2013 CHRIS STEVENSON MD N 461.9 SINUSITIS ACUTE 06/10/2013 BELTRAN DO, JULIET K 461.9 SINUSITIS ACUTE 06/10/2013 BELTRAN DO, JULIET K 461.9 SINUSITIS ACUTE 06/10/2013 BELTRAN DO, JULIET K 461.9 SINUSITIS ACUTE 06/10/2013 BELTRAN DO, JULIET K 461.9 SINUSITIS ACUTE 06/10/2013 BELTRAN DO, JULIET K 461.9 SINUSITIS ACUTE 06/10/2013 BELTRAN DO, JULIET K 461.9 SINUSITIS ACUTE 06/10/2013 BELTRAN DO, JULIET K 461.9 SINUSITIS ACUTE 06/10/2013 BELTRAN DO, JULIET K 461.9 SINUSITIS ACUTE 06/10/2013 BELTRAN DO, JULIET K 461.9 SINUSITIS ACUTE 06/10/2013 BELTRAN DO, JULIET K 461.9 SINUSITIS ACUTE 06/10/2013 BELTRAN DO, JULIET K 461.9 SINUSITIS ACUTE 06/10/2013 BELTRAN DO, JULIET K 461.9 SINUSITIS ACUTE 06/10/2013 BELTRAN DO, JULIET K 461.9 SINUSITIS ACUTE 06/10/2013 CHRIS STEVENSON MD 461.9 SINUSITIS ACUTE 06/10/2013 BELTRAN DO, JULIET K 461.9 SINUSITIS ACUTE 06/10/2013 BELTRAN DO, JULIET K 461.9 SINUSITIS ACUTE 06/10/2013 BELTRAN DO, JULIET K 461.9 SINUSITIS ACUTE 06/10/2013 BELTRAN DO, JULIET K 461.9 SINUSITIS ACUTE 06/10/2013 BELTRAN DO, JULIET K 461.9 SINUSITIS ACUTE 06/10/2013 BELTRAN DO, JULIET K 461.9 SINUSITIS ACUTE 06/10/2013 CHRIS STEVENSON MD 461.9 SINUSITIS ACUTE 06/10/2013 CHRIS STEVENSON MD 461.9 SINUSITIS ACUTE 06/10/2013 BELTRAN DO, JULIET K 461.9 SINUSITIS ACUTE 06/10/2013 BELTRAN DO, JULIET K 461.9 SINUSITIS ACUTE 06/10/2013 BELTRAN DO, JULIET K 461.9 SINUSITIS ACUTE 06/10/2013 BELTRAN DO, JULIET K 461.9 SINUSITIS ACUTE 06/10/2013 BELTRAN DO, JULIET K 461.9 SINUSITIS ACUTE 06/10/2013 BELTRAN DO, JULIET K 461.9 SINUSITIS ACUTE 06/10/2013 LUCA DEVRIESM, KELLE 461.9 SINUSITIS ACUTE 06/10/2013 RAHUL ZHU APRN R 461.9 SINUSITIS ACUTE 06/10/2013 BELTRAN DO, JULIET K 461.9 SINUSITIS ACUTE 06/10/2013 BELTRAN DO, JULIET K 461.9 SINUSITIS ACUTE 06/10/2013 BELTRAN DO, JULIET K 461.9 SINUSITIS ACUTE 06/10/2013 BELTRAN DO, JULIET K 461.9 SINUSITIS ACUTE 06/10/2013 BELTRAN DO, JULIET K 461.9 SINUSITIS ACUTE 06/10/2013 BELTRAN DO, JULIET K 461.9 SINUSITIS ACUTE 06/10/2013 CHRIS STEVENSON MD 461.9 SINUSITIS ACUTE 06/10/2013 CHRIS STEVENSON MD 461.9 SINUSITIS ACUTE 06/10/2013 BELTRAN DO, JULIET K 461.9 SINUSITIS ACUTE 06/10/2013 BELTRAN DO, JULIET K 461.9 SINUSITIS ACUTE 06/10/2013 CHRIS STEVENSON MD 461.9 SINUSITIS ACUTE 06/10/2013 CHRIS STEVENSON MD 461.9 SINUSITIS ACUTE 06/10/2013 BELTRAN DO, JULIET K 461.9 SINUSITIS ACUTE 06/10/2013 CHRIS STEVENSON MD 461.9 SINUSITIS ACUTE 06/10/2013 BELTRAN DO, JULIET K 461.9 SINUSITIS ACUTE 08/10/2013 BELTRAN DO, JULIET K V81.1 HYPERTENSION SCREENING 08/10/2013 BELTRAN DO, JULIET K V81.1 HYPERTENSION SCREENING 08/10/2013 BELTRAN DO, JULIET K V81.1 HYPERTENSION SCREENING 08/10/2013 BELTRAN DO, JULIET K V81.1 HYPERTENSION SCREENING 08/10/2013 BELTRAN DO, JULIET K V81.1 HYPERTENSION SCREENING 08/10/2013 BELTRAN DO, JULIET K V81.1 HYPERTENSION SCREENING 08/10/2013 BELTRAN DO, JULIET K V81.1 HYPERTENSION SCREENING 08/10/2013 BELTRAN DO, JULIET K V81.1 HYPERTENSION SCREENING 08/10/2013 BELTRAN DO, JULIET K V81.1 HYPERTENSION SCREENING 08/10/2013 BELTRAN DO, JULIET K V81.1 HYPERTENSION SCREENING 08/10/2013 BELTRAN DO, JULIET K V81.1 HYPERTENSION SCREENING 08/10/2013 CHRIS STEVENSON MD V81.1 HYPERTENSION SCREENING 08/10/2013 BELTRAN DO, JULIET K V81.1 HYPERTENSION SCREENING 08/10/2013 BELTRAN DO, JULIET K V81.1 HYPERTENSION SCREENING 08/10/2013 BELTRAN DO, JULIET K V81.1 HYPERTENSION SCREENING 08/10/2013 BELTRAN DO, JULIET K V81.1 HYPERTENSION SCREENING 08/10/2013 BELTRAN DO, JULIET K V81.1 HYPERTENSION SCREENING 08/10/2013 BELTRAN DO, JULIET K V81.1 HYPERTENSION SCREENING 08/10/2013 CHRIS STEVENSON MD V81.1 HYPERTENSION SCREENING 08/10/2013 CHRIS STEVENSON MD V81.1 HYPERTENSION SCREENING 08/10/2013 BELTRAN DO, JULIET K V81.1 HYPERTENSION SCREENING 08/10/2013 BELTRAN DO, JULIET K V81.1 HYPERTENSION SCREENING 08/10/2013 BELTRAN DO, JULIET K V81.1 HYPERTENSION SCREENING 08/10/2013 BELTRAN DO, JULIET K V81.1 HYPERTENSION SCREENING 08/10/2013 BELTRAN DO, JULIET K V81.1 HYPERTENSION SCREENING 08/10/2013 BELTRAN DO, JULIET K V81.1 HYPERTENSION SCREENING 08/10/2013 LUCA DPM, KELLE V81.1 HYPERTENSION SCREENING 08/10/2013 SHANNON HZU APRNIA R V81.1 HYPERTENSION SCREENING 08/10/2013 BELTRAN DO, JULIET K V81.1 HYPERTENSION SCREENING 08/10/2013 BELTRAN DO, JULIET K V81.1 HYPERTENSION SCREENING 08/10/2013 BELTRAN DO, JULIET K V81.1 HYPERTENSION SCREENING 08/10/2013 BELTRAN DO, JULIET K V81.1 HYPERTENSION SCREENING 08/10/2013 BELTRAN DO, JULIET K V81.1 HYPERTENSION SCREENING 08/10/2013 BELTRAN DO, JLUIET K V81.1 HYPERTENSION SCREENING 08/10/2013 CHRIS STEVENSON MD V81.1 HYPERTENSION SCREENING 08/10/2013 CHRIS STEVENSON MD V81.1 HYPERTENSION SCREENING 08/10/2013 BELTRAN DO, JULIET K V81.1 HYPERTENSION SCREENING 08/10/2013 BELTRAN DO, JULIET K V81.1 HYPERTENSION SCREENING 08/10/2013 CHRIS STEVENSON MD V81.1 HYPERTENSION SCREENING 08/10/2013 CHRIS STEVENSON MD V81.1 HYPERTENSION SCREENING 08/10/2013 BELTRAN DO, JULIET K V81.1 HYPERTENSION SCREENING 08/10/2013 CHRIS STEVENSON MD V81.1 HYPERTENSION SCREENING 08/10/2013 BELTRAN DO, JULIET K V81.1 HYPERTENSION SCREENING 10/03/2013 BELTRAN DO, JULIET K V45.86 BARIATRIC SURGERY STATUS 10/03/2013 BELTRAN DO, JULIET K V45.86 BARIATRIC SURGERY STATUS 10/03/2013 BELTRAN DO, JULIET K V45.86 BARIATRIC SURGERY STATUS 10/03/2013 BELTRAN DO, JULIET K V45.86 BARIATRIC SURGERY STATUS 10/03/2013 BELTRAN DO, JULIET K V45.86 BARIATRIC SURGERY STATUS 10/03/2013 CHRIS STEVENSON MD V45.86 BARIATRIC SURGERY STATUS 10/03/2013 BELTRAN DO, JULIET K V45.86 BARIATRIC SURGERY STATUS 10/03/2013 BELTRAN DO, JULIET K V45.86 BARIATRIC SURGERY STATUS 10/03/2013 BELTRAN DO, JULIET K V45.86 BARIATRIC SURGERY STATUS 10/03/2013 BELTRAN DO, JULIET K V45.86 BARIATRIC SURGERY STATUS 10/03/2013 BELTRAN DO, JULIET K V45.86 BARIATRIC SURGERY STATUS 10/03/2013 BELTRAN DO, JULIET K V45.86 BARIATRIC SURGERY STATUS 10/03/2013 CHRIS STEVENSON MD V45.86 BARIATRIC SURGERY STATUS 10/03/2013 CHRIS STEVENSON MD V45.86 BARIATRIC SURGERY STATUS 10/03/2013 BELTRAN DO, JULIET K V45.86 BARIATRIC SURGERY STATUS 10/03/2013 BELTRAN DO, JULIET K V45.86 BARIATRIC SURGERY STATUS 10/03/2013 BELTRAN DO, JULIET K V45.86 BARIATRIC SURGERY STATUS 10/03/2013 BELTRAN DO, JULIET K V45.86 BARIATRIC SURGERY STATUS 10/03/2013 BELTRAN DO, JULIET K V45.86 BARIATRIC SURGERY STATUS 10/03/2013 BELTRAN DO, JULIET K V45.86 BARIATRIC SURGERY STATUS 10/03/2013 KELLE DIAZ DPM V45.86 BARIATRIC SURGERY STATUS 10/03/2013 RAHUL ZHU APRN V45.86 BARIATRIC SURGERY STATUS 10/03/2013 BELTRAN DO, JULIET K V45.86 BARIATRIC SURGERY STATUS 10/03/2013 BELTRAN DO, JULIET K V45.86 BARIATRIC SURGERY STATUS 10/03/2013 BELTRAN DO, JULIET K V45.86 BARIATRIC SURGERY STATUS 10/03/2013 BELTRAN DO, JULIET K V45.86 BARIATRIC SURGERY STATUS 10/03/2013 BELTRAN DO, JULIET K V45.86 BARIATRIC SURGERY STATUS 10/03/2013 BELTRAN DO, JULIET K V45.86 BARIATRIC SURGERY STATUS 10/03/2013 CHRIS STEVENSON MD V45.86 BARIATRIC SURGERY STATUS 10/03/2013 CHRIS STEVENSON MD V45.86 BARIATRIC SURGERY STATUS 10/03/2013 BELTRAN DO, JULIET K V45.86 BARIATRIC SURGERY STATUS 10/03/2013 BELTRAN DO, JULIET K V45.86 BARIATRIC SURGERY STATUS 10/03/2013 CHRIS STEVENSON MD V45.86 BARIATRIC SURGERY STATUS 10/03/2013 CHRIS STEVENSON MD V45.86 BARIATRIC SURGERY STATUS 10/03/2013 BELTRAN DO, JULIET K V45.86 BARIATRIC SURGERY STATUS 10/03/2013 CHRIS STEVENSON MD V45.86 BARIATRIC SURGERY STATUS 10/03/2013 BELTRAN DO, JULIET K V45.86 BARIATRIC SURGERY STATUS 10/17/2013 BELTRAN DO, JULIET K 724.5 BACKACHE UNSPECIFIED 10/17/2013 BELTRAN DO, JULIET K 724.5 BACKACHE UNSPECIFIED 10/17/2013 CHRIS STEVENSON MD N 724.5 BACKACHE UNSPECIFIED 10/17/2013 BELTRAN DO, JULIET K 724.5 BACKACHE UNSPECIFIED 10/17/2013 BELTRAN DO, JULIET K 724.5 BACKACHE UNSPECIFIED 10/17/2013 BELTRAN DO, JULIET K 724.5 BACKACHE UNSPECIFIED 10/17/2013 BELTRAN DO, JULIET K 724.5 BACKACHE UNSPECIFIED 10/17/2013 BELTRAN DO, JULIET K 724.5 BACKACHE UNSPECIFIED 10/17/2013 BELTRAN DO, JULIET K 724.5 BACKACHE UNSPECIFIED 10/17/2013 CHRIS STEVENSON MD N 724.5 BACKACHE UNSPECIFIED 10/17/2013 CHRIS STEVENSON MD N 724.5 BACKACHE UNSPECIFIED 10/17/2013 BELTRAN DO, JULIET K 724.5 BACKACHE UNSPECIFIED 10/17/2013 BELTRAN DO, JULIET K 724.5 BACKACHE UNSPECIFIED 10/17/2013 BELTRAN DO, JULIET K 724.5 BACKACHE UNSPECIFIED 10/17/2013 BELTRAN DO, JULIET K 724.5 BACKACHE UNSPECIFIED 10/17/2013 BELTRAN DO, JULIET K 724.5 BACKACHE UNSPECIFIED 10/17/2013 BELTRAN DO, JULIET K 724.5 BACKACHE UNSPECIFIED 10/17/2013 LUCA ROBBINS, KELLE 724.5 BACKACHE UNSPECIFIED 10/17/2013 RAHUL ZHU APRN 724.5 BACKACHE UNSPECIFIED 10/17/2013 BELTRAN DO, JULIET K 724.5 BACKACHE UNSPECIFIED 10/17/2013 BELTRAN DO, JULIET K 724.5 BACKACHE UNSPECIFIED 10/17/2013 BELTRAN DO, JULIET K 724.5 BACKACHE UNSPECIFIED 10/17/2013 BELTRAN DO, JULIET K 724.5 BACKACHE UNSPECIFIED 10/17/2013 BELTRAN DO, JULIET K 724.5 BACKACHE UNSPECIFIED 10/17/2013 BELTRAN DO, JULIET K 724.5 BACKACHE UNSPECIFIED 10/17/2013 GRAHAM ESTRELLA, CHRIS N 724.5 BACKACHE UNSPECIFIED 10/17/2013 GRAHAM ESTRELLA, CHRIS Steiner 724.5 BACKACHE UNSPECIFIED 10/17/2013 BELTRAN DO, JULIET K 724.5 BACKACHE UNSPECIFIED 10/17/2013 BELTRAN DO, JULIET K 724.5 BACKACHE UNSPECIFIED 10/17/2013 GRAHAM ESTRELLA, CHRIS N 724.5 BACKACHE UNSPECIFIED 10/17/2013 GRAHAM ESTRELLA, CHRIS Steiner 724.5 BACKACHE UNSPECIFIED 10/17/2013 BELTRAN DO, JULIET K 724.5 BACKACHE UNSPECIFIED 10/17/2013 CHRIS STEVENSON MD 724.5 BACKACHE UNSPECIFIED 10/17/2013 BELTRAN DO, JULIET K 724.5 BACKACHE UNSPECIFIED 11/07/2013 BELTRAN DO, JULIET K V81.1 HYPERTENSION SCREENING 11/07/2013 BELTRAN DO, JULIET K V81.1 HYPERTENSION SCREENING 11/07/2013 BELTRAN DO, JULIET K V81.1 HYPERTENSION SCREENING 11/07/2013 BELTRAN DO, JULIET K V81.1 HYPERTENSION SCREENING 11/07/2013 BELTRAN DO, JULIET K V81.1 HYPERTENSION SCREENING 11/07/2013 CHRIS STEVENSON MD N V81.1 HYPERTENSION SCREENING 11/07/2013 CHRIS STEVENSON MD V81.1 HYPERTENSION SCREENING 11/07/2013 BELTRAN DO, JULIET K V81.1 HYPERTENSION SCREENING 11/07/2013 BELTRAN DO, JULIET K V81.1 HYPERTENSION SCREENING 11/07/2013 BELTRAN DO, JULIET K V81.1 HYPERTENSION SCREENING 11/07/2013 BELTRAN DO, JULIET K V81.1 HYPERTENSION SCREENING 11/07/2013 BELTRAN DO, JULIET K V81.1 HYPERTENSION SCREENING 11/07/2013 BELTRAN DO, JULIET K V81.1 HYPERTENSION SCREENING 11/07/2013 LUCA DPAdy, KELLE V81.1 HYPERTENSION SCREENING 11/07/2013 RAHUL ZHU APRN V81.1 HYPERTENSION SCREENING 11/07/2013 BELTRAN DO, JULIET K V81.1 HYPERTENSION SCREENING 11/07/2013 BELTRAN DO, JULIET K V81.1 HYPERTENSION SCREENING 11/07/2013 BELTRAN DO, JULIET K V81.1 HYPERTENSION SCREENING 11/07/2013 BELTRAN DO, JULIET K V81.1 HYPERTENSION SCREENING 11/07/2013 BELTRAN DO, JULIET K V81.1 HYPERTENSION SCREENING 11/07/2013 BELTRAN DO, JULIET K V81.1 HYPERTENSION SCREENING 11/07/2013 CHRIS STEVENSON MD N V81.1 HYPERTENSION SCREENING 11/07/2013 CHRIS STEVENSON MD V81.1 HYPERTENSION SCREENING 11/07/2013 BELTRAN DO, JULIET K V81.1 HYPERTENSION SCREENING 11/07/2013 BELTRAN DO, JULIET K V81.1 HYPERTENSION SCREENING 11/07/2013 CHRIS STEVENSON MD N V81.1 HYPERTENSION SCREENING 11/07/2013 CHRIS STEVENSON MD V81.1 HYPERTENSION SCREENING 11/07/2013 BELTRAN DO, JULIET K V81.1 HYPERTENSION SCREENING 11/07/2013 CHRIS STEVENSON MD N V81.1 HYPERTENSION SCREENING 11/07/2013 BELTRAN DO, JULIET K V81.1 HYPERTENSION SCREENING 11/18/2013 BELTRAN DO, JULIET K 783.41 FAILURE TO THRIVE 11/18/2013 BELTRAN DO, JULIET K 783.41 FAILURE TO THRIVE 11/18/2013 BELTRAN DO, JULIET K 783.41 FAILURE TO THRIVE 11/18/2013 CHRIS STEVENSON MD 783.41 FAILURE TO THRIVE 11/18/2013 CHRIS STEVENSON MD 783.41 FAILURE TO THRIVE 11/18/2013 BELTRAN DO, JULIET K 783.41 FAILURE TO THRIVE 11/18/2013 BELTRAN DO, JULIET K 783.41 FAILURE TO THRIVE 11/18/2013 BELTRAN DO, JULIET K 783.41 FAILURE TO THRIVE 11/18/2013 BELTRAN DO, JULIET K 783.41 FAILURE TO THRIVE 11/18/2013 BELTRAN DO, JULIET K 783.41 FAILURE TO THRIVE 11/18/2013 BELTRAN DO, JULIET K 783.41 FAILURE TO THRIVE 11/18/2013 KELLE DIAZ DPM 783.41 FAILURE TO THRIVE 11/18/2013 AUDRA DIAZRAHUL R 783.41 FAILURE TO THRIVE 11/18/2013 BELTRAN DO, JULIET K 783.41 FAILURE TO THRIVE 11/18/2013 BELTRAN DO, JULIET K 783.41 FAILURE TO THRIVE 11/18/2013 BELTRAN DO, JULIET K 783.41 FAILURE TO THRIVE 11/18/2013 BELTRAN DO, JULIET K 783.41 FAILURE TO THRIVE 11/18/2013 BELTRAN DO, JULIET K 783.41 FAILURE TO THRIVE 11/18/2013 BELTRAN DO, JULIET K 783.41 FAILURE TO THRIVE 11/18/2013 CHRIS STEVENSON MD N 783.41 FAILURE TO THRIVE 11/18/2013 CHRIS STEVENSON MD N 783.41 FAILURE TO THRIVE 11/18/2013 BELTRAN DO, JULIET K 783.41 FAILURE TO THRIVE 11/18/2013 BELTRAN DO, JULIET K 783.41 FAILURE TO THRIVE 11/18/2013 CHRIS STEVENSON MD N 783.41 FAILURE TO THRIVE 11/18/2013 CHRIS STEVENSON MD N 783.41 FAILURE TO THRIVE 11/18/2013 BELTRAN DO, JULIET K 783.41 FAILURE TO THRIVE 11/18/2013 CHRIS STEVENSON MD N 783.41 FAILURE TO THRIVE 11/18/2013 BELTRAN DO, JULIET K 783.41 FAILURE TO THRIVE 12/13/2013 CHRIS STEVENSON MD N 706.2 SEBACEOUS CYST 12/13/2013 CHRIS STEVENSON MD V76.51 COLON CANCER SCREENING 12/13/2013 CHRIS STEVENSON MD 706.2 SEBACEOUS CYST 12/13/2013 CHRIS STEVENSON MD V76.51 COLON CANCER SCREENING 12/13/2013 BELTRAN DO, JULIET K 706.2 SEBACEOUS CYST 12/13/2013 BELTRAN DO, JULIET K V76.51 COLON CANCER SCREENING 12/13/2013 BELTRAN DO, JULIET K 706.2 SEBACEOUS CYST 12/13/2013 BELTRAN DO, JULIET K V76.51 COLON CANCER SCREENING 12/13/2013 BELTRAN DO, JULIET K 706.2 SEBACEOUS CYST 12/13/2013 BELTRAN DO, JULIET K V76.51 COLON CANCER SCREENING 12/13/2013 BELTRAN DO, JULIET K 706.2 SEBACEOUS CYST 12/13/2013 BELTRAN DO, JULIET K V76.51 COLON CANCER SCREENING 12/13/2013 BELTRAN DO, JULIET K 706.2 SEBACEOUS CYST 12/13/2013 BELTRAN DO, JULIET K V76.51 COLON CANCER SCREENING 12/13/2013 BELTRAN DO, JULIET K 706.2 SEBACEOUS CYST 12/13/2013 BELTRAN DO, JULIET K V76.51 COLON CANCER SCREENING 12/13/2013 LUCA DPM, KELLE 706.2 SEBACEOUS CYST 12/13/2013 LUCA DPM, KELLE V76.51 COLON CANCER SCREENING 12/13/2013 ZHU LEASE BROKER, RAHUL R 706.2 SEBACEOUS CYST 12/13/2013 ZHU LEASE BROKER, RAHUL R V76.51 COLON CANCER SCREENING 12/13/2013 BELTRAN DO, JULIET K 706.2 SEBACEOUS CYST 12/13/2013 BELTRAN DO, JULIET K V76.51 COLON CANCER SCREENING 12/13/2013 BELTRAN DO, JULIET K 706.2 SEBACEOUS CYST 12/13/2013 BELTRAN DO, JULIET K V76.51 COLON CANCER SCREENING 12/13/2013 BELTRAN DO, JULIET K 706.2 SEBACEOUS CYST 12/13/2013 BELTRAN DO, JULIET K V76.51 COLON CANCER SCREENING 12/13/2013 BELTRAN DO, JULIET K 706.2 SEBACEOUS CYST 12/13/2013 BELTRAN DO, JULIET K V76.51 COLON CANCER SCREENING 12/13/2013 BELTRAN DO, JULIET K 706.2 SEBACEOUS CYST 12/13/2013 BELTRAN DO, JULIET K V76.51 COLON CANCER SCREENING 12/13/2013 BELTRAN DO, JULIET K 706.2 SEBACEOUS CYST 12/13/2013 BELTRAN DO, JULIET K V76.51 COLON CANCER SCREENING 12/13/2013 CHRIS STEVENSON MD 706.2 SEBACEOUS CYST 12/13/2013 CHRIS STEVENSON MD V76.51 COLON CANCER SCREENING 12/13/2013 CHRIS STEVENSNO MD 706.2 SEBACEOUS CYST 12/13/2013 CHRIS STEVENSON MD V76.51 COLON CANCER SCREENING 12/13/2013 BELTRAN DO, JULIET K 706.2 SEBACEOUS CYST 12/13/2013 BELTRAN DO, JULIET K V76.51 COLON CANCER SCREENING 12/13/2013 BELTRAN DO, JULIET K 706.2 SEBACEOUS CYST 12/13/2013 BELTRAN DO, JULIET K V76.51 COLON CANCER SCREENING 12/13/2013 CHRIS STEVENSON MD 706.2 SEBACEOUS CYST 12/13/2013 CHRIS STEVENSON MD V76.51 COLON CANCER SCREENING 12/13/2013 CHRIS STEVENSON MD N 706.2 SEBACEOUS CYST 12/13/2013 CHRIS STEVENSON MD N V76.51 COLON CANCER SCREENING 12/13/2013 BELTRAN DO, JULIET K 706.2 SEBACEOUS CYST 12/13/2013 BELTRAN DO, JULIET K V76.51 COLON CANCER SCREENING 12/13/2013 CHRIS STEVENSON MD 706.2 SEBACEOUS CYST 12/13/2013 CHRIS STEVENSON MD V76.51 COLON CANCER SCREENING 12/13/2013 BELTRAN DO, JULIET K 706.2 SEBACEOUS CYST 12/13/2013 BELTRAN DO, JULIET K V76.51 COLON CANCER SCREENING 12/26/2013 BELTRAN DO, JULIET K V06.1 TDAP DX 12/26/2013 BELTRAN DO, JULIET K V06.1 TDAP DX 12/26/2013 BELTRAN DO, JULIET K V06.1 TDAP DX 12/26/2013 BELTRAN DO, JULIET K V06.1 TDAP DX 12/26/2013 BELTRAN DO, JULIET K V06.1 TDAP DX 12/26/2013 LUCA DPM, KELLE V06.1 TDAP DX 12/26/2013 AUDRA LEASE BROKER, RAHUL R V06.1 TDAP DX 12/26/2013 BELTRAN DO, JULIET K V06.1 TDAP DX 12/26/2013 BELTRAN DO, JULIET K V06.1 TDAP DX 12/26/2013 BELTRAN DO, JULIET K V06.1 TDAP DX 12/26/2013 BELTRAN DO, JULIET K V06.1 TDAP DX 12/26/2013 BELTRAN DO, JULIET K V06.1 TDAP DX 12/26/2013 BELTRAN DO, JULIET K V06.1 TDAP DX 12/26/2013 GRAHAM MD, CHRIS N V06.1 TDAP DX 12/26/2013 GRAHAM ESTRELLA, CHRIS N V06.1 TDAP DX 12/26/2013 BELTRAN DO, JULIET K V06.1 TDAP DX 12/26/2013 BELTRAN DO, JULIET K V06.1 TDAP DX 12/26/2013 GRAHAM ESTRELLA, CHRIS N V06.1 TDAP DX 12/26/2013 GRAHAM ESTRELLA, CHRIS N V06.1 TDAP DX 12/26/2013 BELTRAN DO, JULIET K V06.1 TDAP DX 12/26/2013 GRAHAM ESTRELLA, CHRIS N V06.1 TDAP DX 12/26/2013 BELTRAN DO, JULIET K V06.1 TDAP DX 01/12/2014 GRAHAM ESTRELLA, CHRIS N Ot 274.9 01/12/2014 GRAHAM ESTRELLA, CHRIS N Ot 706.2 02/03/2014 LUCA DPM, KELLE 727.42 GANGLION OF TENDON SHEATH 02/03/2014 LUCA DPM, KELLE 735.4 HAMMER TOE (ACQUIRED) 02/03/2014 ZHU LEASE BROKER, RAHUL R 727.42 GANGLION OF TENDON SHEATH 02/03/2014 ZHU LEASE BROKER, RAHUL R 735.4 HAMMER TOE (ACQUIRED) 02/03/2014 AUDRA LEASE BROKER, RAHUL R 786.07 WHEEZING 02/03/2014 ZHU LEASE BROKER, RAHUL R 786.2 COUGH 02/03/2014 BELTRAN DO, JULIET K 727.42 GANGLION OF TENDON SHEATH 02/03/2014 BELTRAN DO, JULIET K 735.4 HAMMER TOE (ACQUIRED) 02/03/2014 BELTRAN DO, JULIET K 786.07 WHEEZING 02/03/2014 BELTRAN DO, JULIET K 786.2 COUGH 02/03/2014 BELTRAN DO, JULIET K 727.42 GANGLION OF TENDON SHEATH 02/03/2014 BELTRAN DO, JULIET K 735.4 HAMMER TOE (ACQUIRED) 02/03/2014 BELTRAN DO, JULIET K 786.07 WHEEZING 02/03/2014 BELTRAN DO, JULIET K 786.2 COUGH 02/03/2014 BELTRAN DO, JULIET K 727.42 GANGLION OF TENDON SHEATH 02/03/2014 BELTRAN DO, JULIET K 735.4 HAMMER TOE (ACQUIRED) 02/03/2014 BELTRAN DO, JULIET K 786.07 WHEEZING 02/03/2014 EBLTRAN DO, JULIET K 786.2 COUGH 02/03/2014 BELTRAN DO, JULIET K 727.42 GANGLION OF TENDON SHEATH 02/03/2014 BELTRAN DO, JULIET K 735.4 HAMMER TOE (ACQUIRED) 02/03/2014 BELTRAN DO, JULIET K 786.07 WHEEZING 02/03/2014 BELTRAN DO, JULIET K 786.2 COUGH 02/03/2014 BELTRAN DO, JULIET K 727.42 GANGLION OF TENDON SHEATH 02/03/2014 BELTRAN DO, JULIET K 735.4 HAMMER TOE (ACQUIRED) 02/03/2014 BELTRAN DO, JULIET K 786.07 WHEEZING 02/03/2014 BELTRAN DO, JULIET K 786.2 COUGH 02/03/2014 BELTRAN DO, JULIET K 727.42 GANGLION OF TENDON SHEATH 02/03/2014 BELTRAN DO, JULIET K 735.4 HAMMER TOE (ACQUIRED) 02/03/2014 BELTRAN DO, JULIET K 786.07 WHEEZING 02/03/2014 BELTRAN DO, JULIET K 786.2 COUGH 02/03/2014 CHRIS STEVENSON MD N 727.42 GANGLION OF TENDON SHEATH 02/03/2014 CHRIS STEVENSON MD N 735.4 HAMMER TOE (ACQUIRED) 02/03/2014 CHRIS STEVENSON MD 786.07 WHEEZING 02/03/2014 CHRIS STEVENSON MD N 786.2 COUGH 02/03/2014 CHRIS STEVENSON MD N 727.42 GANGLION OF TENDON SHEATH 02/03/2014 CHRIS STEVENSON MD N 735.4 HAMMER TOE (ACQUIRED) 02/03/2014 CHRIS STEVENSON MD N 786.07 WHEEZING 02/03/2014 CHRIS STEVENSON MD N 786.2 COUGH 02/03/2014 BELTRAN DO, JULIET K 727.42 GANGLION OF TENDON SHEATH 02/03/2014 BELTRAN DO, JULIET K 735.4 HAMMER TOE (ACQUIRED) 02/03/2014 BELTRAN DO, JULIET K 786.07 WHEEZING 02/03/2014 BELTRAN DO, JULIET K 786.2 COUGH 02/03/2014 BELTRAN DO, JULIET K 727.42 GANGLION OF TENDON SHEATH 02/03/2014 BELTRAN DO, JULIET K 735.4 HAMMER TOE (ACQUIRED) 02/03/2014 BELTRAN DO JULIET K 786.07 WHEEZING 02/03/2014 BELTRAN DO, JULIET K 786.2 COUGH 02/03/2014 CHRIS STEVENSON MD N 727.42 GANGLION OF TENDON SHEATH 02/03/2014 CHRIS STEVENSON MD N 735.4 HAMMER TOE (ACQUIRED) 02/03/2014 CHRIS STEVENSON MD N 786.07 WHEEZING 02/03/2014 CHRIS STEVENSON MD N 786.2 COUGH 02/03/2014 CHRIS STEVENSON MD N 727.42 GANGLION OF TENDON SHEATH 02/03/2014 CHRIS STEVENSON MD N 735.4 HAMMER TOE (ACQUIRED) 02/03/2014 CHRIS STEVENSON MD 786.07 WHEEZING 02/03/2014 CHRIS STEVENSON MD N 786.2 COUGH 02/03/2014 BELTRAN DO, JULIET K 727.42 GANGLION OF TENDON SHEATH 02/03/2014 DEVIN WATTERS JULIET K 735.4 HAMMER TOE (ACQUIRED) 02/03/2014 DEVIN WATETRS JULIET K 786.07 WHEEZING 02/03/2014 BELTRAN DO, JULIET K 786.2 COUGH 02/03/2014 CHRIS STEVENSON MD N 727.42 GANGLION OF TENDON SHEATH 02/03/2014 CHRIS STEVENSON MD N 735.4 HAMMER TOE (ACQUIRED) 02/03/2014 CHRIS STEVENSON MD N 786.07 WHEEZING 02/03/2014 CHRIS STEVENSON MD N 786.2 COUGH 02/03/2014 BELTRAN DO JULIET K 727.42 GANGLION OF TENDON SHEATH 02/03/2014 DEVIN WATTERS JULIET K 735.4 HAMMER TOE (ACQUIRED) 02/03/2014 DEVIN WATTERS JULIET K 786.07 WHEEZING 02/03/2014 BELTRAN DO JULIET K 786.2 COUGH 02/14/2014 CHRIS STEVENSON MD Ot 274.9 02/14/2014 CHRIS STEVENSON MD Ot 706.2 02/20/2014 YASIR MELARA MD Ot 211.3 02/20/2014 SARITHA ESTRELLA, YASIR [place] Ot 562.10 02/20/2014 YASIR MELARA MD Ot 600.00 02/20/2014 YASIR MELARA MD Ot V16.0 02/20/2014 SARITHA ESTRELLA, YASIR [place] Ot V76.51 03/24/2014 CHRIS STEVENSON MD 701.1 HYPERKERATOSIS 03/24/2014 CHRIS STEVENSON MD 701.1 HYPERKERATOSIS 03/24/2014 JULIET BELTRAN DO K 701.1 HYPERKERATOSIS 03/24/2014 BELTRAN MARIBEL WATTERSA K 701.1 HYPERKERATOSIS 03/24/2014 CHRIS STEVENSON MD 701.1 HYPERKERATOSIS 03/24/2014 CHRIS STEVENSON MD 701.1 HYPERKERATOSIS 03/24/2014 BELTRAN MARIBEL WATTERSA K 701.1 HYPERKERATOSIS 03/24/2014 CHRIS STEVENSON MD 701.1 HYPERKERATOSIS 03/24/2014 MARIBEL BELTRAN DOA K 701.1 HYPERKERATOSIS 03/31/2014 CHRIS STEVENSON MD 368.2 DIPLOPIA 03/31/2014 CHRIS STEVENSON MD 368.2 DIPLOPIA 03/31/2014 JULIET BELTRAN DO K 368.2 DIPLOPIA 03/31/2014 MARIBEL BELTRAN DOA K 368.2 DIPLOPIA 03/31/2014 CHRIS STEVENSON MD 368.2 DIPLOPIA 03/31/2014 CHRIS STEVENSON MD 368.2 DIPLOPIA 03/31/2014 MARIBEL BELTRAN DOA K 368.2 DIPLOPIA 03/31/2014 CHRIS STEVENSON MD 368.2 DIPLOPIA 03/31/2014 MARIBEL BELTRAN DOA K 368.2 DIPLOPIA 04/07/2014 CHRIS STEVENSON MD V81.1 HYPERTENSION SCREENING 04/07/2014 MARIBEL BELTRAN DOA K V81.1 HYPERTENSION SCREENING 04/07/2014 MARIBEL BELTRAN DOA K V81.1 HYPERTENSION SCREENING 04/07/2014 CHRIS STEVENSON MD V81.1 HYPERTENSION SCREENING 04/07/2014 CHRIS STEVENSON MD V81.1 HYPERTENSION SCREENING 04/07/2014 MARIBEL BELTRAN DOA K V81.1 HYPERTENSION SCREENING 04/07/2014 CHRIS STEVENSON MD V81.1 HYPERTENSION SCREENING 04/07/2014 MARIBEL BELTRAN DOA K V81.1 HYPERTENSION SCREENING 04/13/2014 CHRIS STEVENSON MD 723.1 PAIN NECK 04/13/2014 GRAHAM ESTRELLA, CHRIS N 784.0 HEADACHE 04/13/2014 BELTRAN DO, JULIET K 723.1 PAIN NECK 04/13/2014 BELTRAN DO, JULIET K 784.0 HEADACHE 04/13/2014 BELTRAN DO, JULIET K 723.1 PAIN NECK 04/13/2014 BELTRAN DO, JULIET K 784.0 HEADACHE 04/13/2014 CHRIS STEVENSON MD N 723.1 PAIN NECK 04/13/2014 GRAHAM ESTRELLA, CHRIS N 784.0 HEADACHE 04/13/2014 GRAHAM ESTRELLA, CHRIS N 723.1 PAIN NECK 04/13/2014 GRAHAM ESTRELLA, CHRIS N 784.0 HEADACHE 04/13/2014 BELTRAN DO, JULIET K 723.1 PAIN NECK 04/13/2014 BELTRAN DO, JULIET K 784.0 HEADACHE 04/13/2014 GRAHAM ESTRELLA, CHRIS N 723.1 PAIN NECK 04/13/2014 CHRIS STEVENSON MD N 784.0 HEADACHE 04/13/2014 BELTRAN DO, JULIET K 723.1 PAIN NECK 04/13/2014 BELTRAN DO, JULIET K 784.0 HEADACHE 04/18/2014 Ot 787.91 04/18/2014 Ot 719.46 04/18/2014 Ot E000.8 04/18/2014 Ot E849.0 04/18/2014 Ot E888.9 04/18/2014 Ot V58.61 04/18/2014 Ot 729.81 04/18/2014 Ot 924.5 04/18/2014 Ot E000.8 04/18/2014 Ot E888.9 04/18/2014 Ot V12.51 04/18/2014 Ot V58.61 04/18/2014 KANDY TALLEY APRN Ot 786.05 04/18/2014 SANTO ESTRELLA FACC, SOFIA FACP CCDS Ot 278.00 04/18/2014 SANTO ESTRELLA FACC, SOFIA FACP CCDS Ot 786.09 04/18/2014 SANTO LIUC, SOFIA FACP CCDS Ot 278.00 04/18/2014 SANTO ESTRELLA FACC, SOFIA FACP CCDS Ot 786.09 04/18/2014 SANTO ESTRELLA FACC, ALI FACP CCDS Ot V85.43 04/18/2014 CHRIS STEVENSON MD Ot 274.9 04/18/2014 CHRIS STEVENSON MD Ot 706.2 04/18/2014 SARITHA ESTRELLA, YASIR [place] Ot 211.3 04/18/2014 SARITHA ESTRELLA, YASIR [place] Ot 562.10 04/18/2014 SARITHA ESTRELLA, YASIR [place] Ot 600.00 04/18/2014 YASIR MELARA MD Ot V16.0 04/18/2014 YASIR MELARA MD Ot V76.51 04/18/2014 YASIR MELARA MD Ot V72.84 04/19/2014 CHRIS STEVENSON MD Ot 331.9 04/19/2014 CHRIS STEVENSON MD Ot 723.0 04/25/2014 JULIET BELTRAN DO K 461.9 SINUSITIS ACUTE 04/25/2014 JULIET BELTRAN DO K 461.9 SINUSITIS ACUTE 04/25/2014 CHRIS STEVENSON MD N 461.9 SINUSITIS ACUTE 04/25/2014 CHRIS STEVENSON MD N 461.9 SINUSITIS ACUTE 04/25/2014 JULIET BELTRAN DO K 461.9 SINUSITIS ACUTE 04/25/2014 CHRIS STEVENSON MD N 461.9 SINUSITIS ACUTE 04/25/2014 JULIET BELTRAN DO K 461.9 SINUSITIS ACUTE 05/05/2014 JULIET BELTRAN DO K 553.20 UNSPECIFIED VENTRAL HERNIA WITHOUT OBSTRUCTION OR GANGRENE 05/05/2014 JULIET BELTRAN DO K 553.20 UNSPECIFIED VENTRAL HERNIA WITHOUT OBSTRUCTION OR GANGRENE 05/05/2014 CHRIS STEVENSON MD N 553.20 UNSPECIFIED VENTRAL HERNIA WITHOUT OBSTRUCTION OR GANGRENE 05/05/2014 CHRIS STEVENSON MD N 553.20 UNSPECIFIED VENTRAL HERNIA WITHOUT OBSTRUCTION OR GANGRENE 05/05/2014 JULIET BELTRAN DO K 553.20 UNSPECIFIED VENTRAL HERNIA WITHOUT OBSTRUCTION OR GANGRENE 05/05/2014 CHRIS STEVENSON MD N 553.20 UNSPECIFIED VENTRAL HERNIA WITHOUT OBSTRUCTION OR GANGRENE 05/05/2014 JULIET BELTRAN DO K 553.20 UNSPECIFIED VENTRAL HERNIA WITHOUT OBSTRUCTION OR GANGRENE 05/25/2014 CHRIS STEVENSON MD Ot 331.9 05/25/2014 CHRIS STEVENSON MD Ot 723.0 05/26/2014 BELTRAN DO JULIET K 278.02 OVERWEIGHT 05/26/2014 BELTRAN DOMARIBELA K 783.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 TO THRIVE 05/26/2014 BELTRAN DO, JULIET K 278.02 OVERWEIGHT 05/26/2014 BELTRAN DOMARIBELA K 783.41 FAILURE TO THRIVE 05/26/2014 CHRIS STEVENSON MD N 278.02 OVERWEIGHT 05/26/2014 CHRIS STEVENSON MD N 783.41 FAILURE TO THRIVE 05/26/2014 CHRIS STEVENSON MD N 278.02 OVERWEIGHT 05/26/2014 CHRIS STEVENSON MD N 783.41 FAILURE TO THRIVE 05/26/2014 BELTRAN JULIET K 278.02 OVERWEIGHT 05/26/2014 BELTRAN , JULIET K 783.41 FAILURE TO THRIVE 05/26/2014 CHRIS STEVENSON MD N 278.02 OVERWEIGHT 05/26/2014 CHRIS STEVENSON MD N 783.41 FAILURE TO THRIVE 05/26/2014 MARIBEL BELTRAN DOA K 278.02 OVERWEIGHT 05/26/2014 DEVIN WATTERS,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
--- NOTE | 2016-10-28 12:38 | Diagnostic Imaging Report ---
INDICATION: Pain. TECHNIQUE: Three views of the right shoulder were obtained. COMPARISON: 10/10/2016. FINDINGS: The alignment is normal. There is mild arthrosis of the acromioclavicular joint. There is no fracture or dislocation. The right lung is clear. The soft tissues are unremarkable. IMPRESSION: Mild arthrosis of the acromioclavicular joint; otherwise, unremarkable exam. Dictated by: Dictated on workstation # [id number]
[2016-10-28] MEDS ORDERED: PRD20T PO (13:04)
[2016-10-28 13:25] VITALS: BP 145/85
== END 2016-10-28 13:25 | disposition home or self-care (01) ==
LOC: EDUNIT# 10:53 → ER 10:57
DX: S49.91XA Unspecified injury of right shoulder and upper arm, initial encounter (principal); G47.30 Sleep apnea, unspecified; E78.00 Pure hypercholesterolemia, unspecified; I10 Essential (primary) hypertension; K21.9 Gastro-esophageal reflux disease without esophagitis; F41.9 Anxiety disorder, unspecified; F32.9 Major depressive disorder, single episode, unspecified; M17.0 Bilateral primary osteoarthritis of knee; Z86.010 Personal history of colon polyps; Z80.0 Family history of malignant neoplasm of digestive organs; Z82.49 Family history of ischemic heart disease and other diseases of the circulatory system; Z87.442 Personal history of urinary calculi; Z87.448 Personal history of other diseases of urinary system; Z86.718 Personal history of other venous thrombosis and embolism; Z87.19 Personal history of other diseases of the digestive system; Z98.84 Bariatric surgery status; Z90.89 Acquired absence of other organs; X58.XXXA Exposure to other specified factors, initial encounter
CPT/HCPCS: 73030; 99282

== ENCOUNTER 2016-11-02 21:19 | Emergency (ER) | payer OTHER ==
[~2016-11-02] VITALS: Ht 177.8 cm; Wt 131.5 kg
[~2016-11-02 21:19] MED LIST changes: -NAPR-1070 PO; +NAPR550T PO; +PRD20T PO
--- OUTSIDE RECORDS SUMMARY | 2016-11-02 21:25 | XMS REPORT | Clinical Summary ---
Author Author [facility] Organization [facility] Address Unknown Phone Unavailable Care Team Providers Care Bench Scientist Name Role Phone PCP Unavailable Source Comments Some departments are not documenting in the electronic medical record. If you do not see the information that you expected, contact Release of Information in the Health Information Management department at [phone] for further assistance in locating additional records.[facility] Allergies Not on File Current Medications [...]
--- OUTSIDE RECORDS SUMMARY | 2016-11-02 21:28 | XMS REPORT ---
Author Author KELLIE ZURTIA [facility] Address [address] [place] [address] Care Team Providers Care Spreader Operator Name Role Phone KELLIE ZURITA Unavailable PROBLEMS Type Condition ICD9-CM Code MST57-XB Code Onset Dates Condition Status SNOMED Code Problem Obstructive sleep apnea syndrome G47.33 Active 00431438 Problem History of diverticulitis Z87.19 Active [id number] Problem Allergic rhinitis, unspecified allergic rhinitis type J30.9 Active 06978883 Problem Erectile dysfunction due to diseases classified elsewhere N52.1 Active 267003480 Problem Essential hypertension I10 Active 62607866 Problem Acute right-sided low back pain with right-sided sciatica M54.41 Active 634257335 Problem Nephrolithiasis N20.0 Active 89560580 Problem Nocturnal hypoxia G47.34 Active 394825243 Problem Chronic prescription opiate use Z79.899 Active 004107796 Problem 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 Active 04133822 Problem Benign prostatic hyperplasia, presence of lower urinary tract symptoms unspecified, unspecified morphology N40.0 Active 542904584 Problem Moderate episode of recurrent major depressive disorder F33.1 Active 410257211 Problem Urge incontinence N39.41 Active 213921189 Problem Low back pain M54.5 Active 624670498 Problem Psoriasis L40.9 Active 2443379 Problem Anxiety F41.9 Active 22417776 Problem Hyperlipidemia, unspecified E78.5 Active 28761685 Problem Esophageal stricture K22.2 Active 21100674 Problem Cervicalgia M54.2 Active 8778574408080 Problem Chronic gout, unspecified cause, unspecified site M1A.9XX0 Active 69635270 Problem Primary insomnia F51.01 Active 926555487 Problem History of weight loss surgery Z98.84 Active 087207307 ALLERGIES Substance Reaction Event Type Date Status Sulfamethoxazole Unknown Drug Allergy Mar, Active Benazepril HCl hypotension Drug Allergy Mar, Active Ampicillin hives Drug Allergy Mar, Active SOCIAL HISTORY No smoking Hx information available PLAN OF CARE Activity Details Follow Up prn Reason: VITAL SIGNS Height 69 in 2016-03-14 Weight 262.4 lbs 2016-03-14 Temperature 98.1 degrees Fahrenheit 2016-03-14 Heart Rate 64 bpm 2016-03-14 Respiratory Rate 20 2016-03-14 BMI 38.75 kg/m2 2016-03-14 Blood pressure systolic 136 mmHg 2016-03-14 Blood pressure diastolic 80 mmHg 2016-03-14 MEDICATIONS Medication Instructions Dosage Frequency Start Date End Date Duration Status Nasonex 50 MCG/ACT spray 1 sprays in each nostril by INTRANASAL route 2 times per day Active Clobetasol Propionate 0.05 % Externally Twice a day 1 application to affected area 12h Sep, 07 days Active Allopurinol 100 MG TAKE 1 TABLET BY MOUTH DAILY 30 Active Multivitamin BID May, Active Endocet 10-325 MG Orally 4 times a day 1 tablet as needed 6h Nov, 28 days Active Omeprazole 20 MG Orally 2 times a day 1 capsule 12h Active Clonazepam 1 MG Orally Once a day as needed for anxiety 1 tablet June, Active Vitamin D-3 1000 UNIT Orally Once a day 5 capsule 24h Active Trazodone HCl 150 MG TAKE 1 TABLET BY MOUTH EVERY DAY DAILY AT BEDTIME 30 Active Garlic 1,000 mg 3 Capsule 2 times per day Dec, Active Duloxetine HCl 60 MG Orally Once a day 1 capsule 24h Nov, 90 day(s) Active Flomax 0.4 MG Orally Once a day 1 capsule 30 minutes after the same meal each day 24h Active RESULTS No Results PROCEDURES Procedure Date Ordered Related Diagnosis Body Site [facility] VISIT ESTABLISHED PATIENT Mar 14, 2016 Office Visit, Est Pt., Level 3 Mar 14, 2016 THER/PROPH/DIAG INJ, SC/IM Mar 14, 2016 DEPO MEDROL 40 MG/ML Mar 14, 2016 DEXAMETHASONE 4MG/ML (PER 1 MG) Mar 14, 2016 IMMUNIZATIONS Vaccine Route Administration Date Status DEXAMETHASONE 4MG/ML (PER 1 MG) IM Intramuscular Mar 14, 2016 Administered DEPO MEDROL 40 MG/ML IM Intramuscular Mar 14, 2016 Administered
--- NOTE | 2016-11-02 21:36 | ED Abdominal Pain ---
General Chief Complaint: Abdominal/GI Problems Stated Complaint: R AB PAIN Nursing Triage Note: PT TO ED 5 W/ FAMILY FOR C/O RLQ PAIN ONSET THIS AM. REPORTS HE HEARD A "SNAP" LAST NOC WHILE TAKING HIS SHOES ET SOCKS OFF ET WOKE W/ PAIN THIS AM. DENIES V/D, BUT DOES REPORT NAUSEA. NO OTHER C/O VOICED Sepsis Screen: No Definite Risk Source of Information: Patient Exam Limitations: No Limitations History of Present Illness Time Seen By Provider: 21:34 Initial Comments To ER with right-sided abdominal pain. This pain is constant. Somewhat worsened with movement. He does have nausea no vomiting. No fevers or chills. No dysuria. He does have some constipation. States that he bent forward last night while tying his shoes and he felt an unusual sensation in the right side of his abdomen. He tried a muscle relaxer at home without improvement. He also reports a history of kidney stones and states this feels similar. Severity/Quality: Moderate Location: Flank Radiation: No Radiation Activities at Onset: None Allergies and Home Medications Allergies Coded Allergies: Penicillins (Unverified Allergy, Mild, 07/04/09) ampicillin (Unverified Allergy, Mild, RASH, 04/22/09) sulfacetamide (Verified Allergy, Mild, "MADE ME FEEL BAD", 03/19/15) egg (Unverified Allergy, Unknown, 07/19/15) FROM UNCODED ALLERGIES Home Medications Allopurinol 100 Mg Tab, 100 MG PO DAILY, (Reported) Cholecalciferol (Vitamin D3) 5,000 Unit Tablet, 5,000 UNIT PO DAILY, (Reported) Ciprofloxacin HCl 250 Mg Tablet, 250 MG PO BID, #10 Prescribed by: MIESHA PARKS on 11/02/16 2224 Clonazepam 0.5 Mg Tablet, 0.5 MG PO HS, (Reported) NEEDED FOR ANXIETY Diclofenac Sodium 75 Mg Tablet.dr, 75 MG PO BID, (Reported) Garlic 2,000 Mg Capsule, 2,000 MG PO DAILY, (Reported) Mometasone Furoate 17 Gm [place], 1 SPRAY NSEACH HS, #1 (Reported) Multivitamin 1 Each Tablet, 2 EACH PO BID, (Reported) Naproxen Sodium 550 Mg Tablet, 550 MG PO BID, #60 Prescribed by: FAUSTINO BRYAN on 03/16/16 1751 Omeprazole 20 Mg Capsule.dr, 20 MG PO BID, (Reported) Oxycodone Hcl/Acetaminophen 1 Each Tablet, 1 EACH PO Q6HR PRN PRN for PAIN, ( Reported) Prednisone 20 Mg Tab, 40 MG PO DAILY, #10 Ref 0 Prescribed by: NASIR DOMINIQUE on 10/28/16 1304 Tamsulosin HCl 0.4 Mg Cap.er.24h, 0.4 MG PO DAILY, (Reported) Tamsulosin HCl 0.4 Mg Cap, 0.4 MG PO DAILY, #10 Prescribed by: MIESHA PARKS on 11/02/16 2216 Trazodone HCl 150 Mg Tablet, 150 MG PO HS, (Reported) Trazodone Hcl 150 Mg Tablet, 150 MG PO HS, (Reported) Review of Systems Constitutional: see HPI EENTM: No Symptoms Reported Respiratory: No Symptoms Reported Cardiovascular: No Symptoms Reported Gastrointestinal: See HPI, Abdominal Pain Genitourinary: No Symptoms Reported Musculoskeletal: no symptoms reported Skin: no symptoms reported Psychiatric/Neurological: No Symptoms Reported Endocrine: No Symptoms Reported Past Uggosle-Tyxszw-Uzkefv Hx Patient Social History Alcohol Use: Denies Use Recreational Drug Use: No Smoking Status: Never a Smoker Recent Foreign Travel: No Contact w/Someone Who Travel: No Recent Infectious Disease Expo: No Recent Hopitalizations: No Physical Abuse: No Sexual Abuse: No Mistreated: No Fear: No Immunizations Up To Date Tetanus Booster (TDap): Less than 5yrs Date of Pneumonia Vaccine: Mar 19, 2013 Seasonal Allergies Seasonal Allergies: Yes Surgeries History of Surgeries: Yes (HERNIA REPAIR, SINUS, FOOT, BARIATRIC, KNEE SCOPE, CYSTO) Surgeries: Abdominal, Adenoidectomy, Bladder Surgery, Gallbladder, Orthopedic, Renal, Tonsillectomy Respiratory History of Respiratory Disorde: Yes (USES CPAP) Respiratory Disorders: Sleep Apnea Cardiovascular History of Cardiac Disorders: Yes (2011-FROM FALL, TOOK COUMADIN FOR 6MONTHS) Cardiac Disorders: Deep Vein Thrombosis, High Cholesterol, Hypertension Neurological History of Neurological Disord: No Reproductive System Hx Reproductive Disorders: No Sexually Transmitted Disease: No HIV/AIDS: No Genitourinary Genitourinary Disorders: Benign Prostatic Hyperpl, Bladder Infection, Kidney Stones Gastrointestinal History of Gastrointestinal Di: Yes (HAS HAD GASTRIC SLEEVE) Gastrointestinal Disorders: Gastroesophageal Reflux, Chronic Constipation, Diverticulosis, Polyps, Hiatal Hernia, Irritable Bowel Musculoskeletal History of Musculoskeletal Dis: Yes (ARTHRITIS IN KNEES AND BACK) Musculoskeletal Disorders: Arthritis, Chronic Back Pain, Gout Endocrine History of Endocrine Disorders: No HEENT Loss of Vision: Bilateral Hearing Impairment: Denies Cancer History of Cancer: No Psychosocial History of Psychiatric Problem: Yes Behavioral Health Disorders: Sleep Difficulties, Anxiety, Depression Suicide Risk Score: 0 Integumentary History of Skin or Integumenta: Yes (RED PATCHES ON FACE) Blood Transfusions History of Blood Disorders: No Adverse Reaction to a Blood Tr: No Family Medical History Significant Family History: No Pertinent Family Hx Family Medial History: Arthritis 19 MOTHER Cardiovascular disease 19 MOTHER Colon cancer 19 FATHER 19 MOTHER G8 SISTER Dementia 19 MOTHER Hypertension 19 MOTHER G8 BROTHER Respiratory disorder 19 FATHER (lung ca) Thyroid disease 19 MOTHER Physical Exam Vital Signs VS - Last 72 Hours, by Label 11/02/16 21:23 Temp 99.2 Pulse 59 Resp 20 B/P (MAP) 187/105 Pulse Ox 96 O2 Delivery Room Air Capillary Refill : Less Than 3 Seconds General Appearance: WD/WN, no apparent distress HEENT: PERRL/EOMI, normal ENT inspection Neck: non-tender, full range of motion Respiratory: no respiratory distress, no accessory muscle use Cardiovascular: regular rate, rhythm, no murmur Gastrointestinal: normal bowel sounds, soft, tenderness Extremities: normal range of motion, non-tender Neurologic/Psychiatric: alert, normal mood/affect, oriented x 3 Skin: normal color, warm/dry Progress/Results/Core Measures Results/Orders Lab Results Laboratory Tests Test 11/02/16 21:39 11/02/16 21:56 Range/Units White Blood Count 10.1 4.3-11.0 10^3/uL Red Blood Count 4.42 4.35-5.85 10^6/uL Hemoglobin 14.7 13.3-17.7 G/DL Hematocrit 41 40-54 % Mean Corpuscular Volume 92 80-99 FL Mean Corpuscular Hemoglobin 33 25-34 PG Mean Corpuscular Hemoglobin Concent 36 32-36 G/DL Red Cell Distribution Width 12.5 10.0-14.5 % Platelet Count 213 130-400 10^3/uL Mean Platelet Volume 9.6 7.4-10.4 FL Neutrophils (%) (Auto) 73 42-75 % Lymphocytes (%) (Auto) 18 12-44 % Monocytes (%) (Auto) 9 0-12 % Eosinophils (%) (Auto) 1 0-10 % Basophils (%) (Auto) 0 0-10 % Neutrophils # (Auto) 7.3 1.8-7.8 X 10^3 Lymphocytes # (Auto) 1.8 1.0-4.0 X 10^3 Monocytes # (Auto) 0.9 0.0-1.0 X 10^3 Eosinophils # (Auto) 0.1 0.0-0.3 10^3/uL Basophils # (Auto) 0.0 0.0-0.1 10^3/uL Sodium Level 140 135-145 MMOL/L Potassium Level 3.4 L 3.6-5.0 MMOL/L Chloride Level 109 H 98-107 MMOL/L Carbon Dioxide Level 20 L 21-32 MMOL/L Anion Gap 11 5-14 MMOL/L Blood Urea Nitrogen 20 H 7-18 MG/DL Creatinine 1.48 H 0.60-1.30 MG/DL Estimat Glomerular Filtration Rate 48 BUN/Creatinine Ratio 14 Glucose Level 95 70-105 MG/DL Calcium Level 8.4 L 8.5-10.1 MG/DL Total Bilirubin 0.7 0.1-1.0 MG/DL Aspartate Amino Transf (AST/SGOT) 18 5-34 U/L Alanine Aminotransferase (ALT/SGPT) 16 0-55 U/L Alkaline Phosphatase 99 40-136 U/L Total Protein 6.0 L 6.4-8.2 GM/DL Albumin 3.3 3.2-4.5 GM/DL Urine Color YELLOW Urine Clarity CLEAR Urine pH 6 5-9 Urine Specific [place] 1.020 1.016-1.022 Urine Protein NEGATIVE NEGATIVE Urine Glucose (UA) NEGATIVE NEGATIVE Urine Ketones NEGATIVE NEGATIVE Urine Nitrite NEGATIVE NEGATIVE Urine Bilirubin NEGATIVE NEGATIVE Urine Urobilinogen NORMAL NORMAL MG/DL Urine Leukocyte Esterase 1+ H NEGATIVE Urine RBC (Auto) 4+ H NEGATIVE Urine RBC 10-25 H /HPF Urine WBC 2-5 /HPF Urine Crystals NONE /LPF Urine Bacteria NONE /HPF Urine Casts NONE /LPF Urine Mucus NEGATIVE /LPF Urine Culture Indicated NO My Orders Orders - MIESHA PARKS LOG TRUCK DRIVER Cbc With Automated Diff (11/02/16 21:29) Comprehensive Metabolic Panel (11/02/16 21:29) Ua Culture If Indicated (11/02/16 21:32) Ct Abd/Pelvis Wo(Kidney Stone) (11/02/16 21:32) Fentanyl Injection (Sublimaze Injection (11/02/16 21:45) Ondansetron Injection (Zofran Injectio (11/02/16 21:45) Ketorolac Injection (Toradol Injection) (11/02/16 22:00) Morphine Injection (Morphine Injection (11/02/16 22:15) Ciprofloxacin Tablet (Cipro Tablet) (11/02/16 22:30) Clonidine Tablet (Catapres Tablet) (11/02/16 22:30) Abdomen/Kub 1view (11/02/16 22:23) Rx-Ondansetron Po (Rx-Zofran Po) (11/02/16 22:26) Medications Given in ED Current Medications Medications Dose Ordered Sig/Analilia Route Start Time Stop Time Status Last Admin Dose Admin Fentanyl Citrate 50 mcg ONCE ONCE IVP 11/02/16 21:45 11/02/16 21:46 DC 11/02/16 21:42 50 MCG Ketorolac Tromethamine 15 mg ONCE ONCE IVP 11/02/16 22:00 11/02/16 22:01 DC 11/02/16 22:04 15 MG Ondansetron HCl 4 mg ONCE ONCE IVP 11/02/16 21:45 11/02/16 21:46 DC 11/02/16 21:43 4 MG Vital Signs/I&O Vital Sign - Last 12Hours 11/02/16 21:23 Temp 99.2 Pulse 59 Resp 20 B/P (MAP) 187/105 Pulse Ox 96 O2 Delivery Room Air Blood Pressure Mean: 132 Departure Impression Impression: Primary Impression: Right ureteral stone Disposition: HOME, SELF-CARE Condition: Improved Departure-Patient Inst. Decision time for Depature: 22:15 Referrals: CHRIS STEVENSON MD (PCP) Primary Care Physician FREDY ESCALANTE MD Patient Instructions: Kidney Stones (DC) Add. Discharge Instructions: 1. Return to ER for any fevers, intolerable pain, any other concerns 2. Call Dr. Escalante on Thursday to make an appointment to be seen 3. All discharge instructions reviewed with patient and/or family. Voiced understanding. Scripts Ciprofloxacin HCl (Ciprofloxacin HCl) 250 Mg Tablet 250 MG PO BID, #10 TAB . Prov: MIESHA PARKS LOG TRUCK DRIVER 11/02/16 Tamsulosin HCl (Flomax) 0.4 Mg Cap 0.4 MG PO DAILY, #10 CAP . Prov: MIESHA PARKS APRN 11/02/16 Copy Copies To 1: FREDY ESCALANTE MD, PETER J APRN Nov 02, 2016 21:36
[2016-11-02] MEDS ORDERED: fentaNYL INJECTION 100 MCG/2 ML AMP IVP ONE (21:45)
[2016-11-02] MEDS ORDERED: ONDANSETRON 4 MG/2 ML (SDV) Z0FRAN IVP ONE (21:45)
[2016-11-02 21:48] LABS: BASOPHILS % (AUTO) 0 % (0-10); EOSINOPHILS # (AUTO) 0.1 10^3/uL (0.0-0.3); EOSINOPHILS % (AUTO) 1 % (0-10); LYMPHOCYTES # (AUTO) 1.8 X 10^3 (1.0-4.0); LYMPHOCYTES % (AUTO) 18 % (12-44); MEAN CORPUSCULAR HEMOGLOBIN 33 PG (25-34); MEAN CORPUSCULAR HGB CONC 36 G/DL (32-36); MEAN CORPUSCULAR VOLUME 92 FL (80-99); MEAN PLATELET VOLUME 9.6 FL (7.4-10.4); MONOCYTES # (AUTO) 0.9 X 10^3 (0.0-1.0); MONOCYTES % (AUTO) 9 % (0-12); NEUTROPHILS # (AUTO) 7.3 X 10^3 (1.8-7.8); NEUTROPHILS % (AUTO) 73 % (42-75); PLATELET COUNT 213 10^3/uL (130-400); RED BLOOD COUNT 4.42 10^6/uL (4.35-5.85); RED CELL DISTRIBUTION WIDTH 12.5 % (10.0-14.5); WHITE BLOOD COUNT 10.1 10^3/uL (4.3-11.0)
[2016-11-02] MEDS ORDERED: KETOROLAC 30 MG/ML VIAL IVP ONE (22:00)
[2016-11-02 22:02] LABS: BILIRUBIN,URINE NEGATIVE (NEGATIVE); KETONES,URINE NEGATIVE (NEGATIVE); LEUKOCYTE ESTERASE ,URINE 1+ (NEGATIVE); NITRITE,URINE NEGATIVE (NEGATIVE); PH,URINE 6 (5-9); PROTEIN,URINE NEGATIVE (NEGATIVE); UROBILINOGEN,URINE NORMAL (NORMAL)
--- NOTE | 2016-11-02 22:10 | Diagnostic Imaging Report ---
PROCEDURE: CT urinary tract, rule out kidney stone. TECHNIQUE: Multiple contiguous axial images were obtained through the abdomen and pelvis without the use of intravenous contrast. INDICATION: Right-sided abdominal pain. History of cholecystectomy and hernia repair. COMPARISON: Previous study from April 24, 2015. FINDINGS: The visualized lung bases demonstrate some stable mild pleural thickening. There are calcified hilar lymph nodes. There is no focal infiltrate or evidence of a pleural or pericardial effusion. The liver demonstrates no noncontrast evidence of a focal intrahepatic abnormality. Patient is status post cholecystectomy without abnormal biliary dilatation. The spleen is normal in size with some small splenic granulomas. The pancreas is atrophic without focal abnormality. There is no adrenal mass. The left kidney demonstrates unchanged nonobstructive intrarenal calculus and a left-sided renal cyst. The right kidney demonstrates new proximal hydroureter and mild hydronephrosis secondary to a right sided ureteral stone at the level of the mid sacrum, approximately 3 cm above the right ureterovesicular junction. There is significant fat stranding demonstrated along of the right ureter and about the right kidney. The patient's exophytic right renal cyst is unchanged. The small and large bowel are normal in caliber without evidence of obstruction. There is advanced diverticulosis demonstrated on today's examination but there has been resolution of the prior fat stranding related to diverticulitis. No diverticulitis evident on today's study. The urinary bladder is nondistended. There is no free fluid within the pelvis. The prostate is mildly prominent. There are no pathologically enlarged lymph nodes. There are prior operative changes related to previous anterior abdominal wall hernia repair. There are also prior operative changes involving the stomach. Multilevel degenerative features are present throughout the spine. There is no acute or suspicious osseous abnormality. IMPRESSION: 1. New right-sided hydroureter and hydronephrosis secondary to a ureteral stone at the level of the mid sacrum, approximately 3 cm above the ureterovesicular junction. The stone measures approximately 4 mm. There is significant right periureteral and perinephric fat stranding. 2. Nonobstructive stones within the left kidney are unchanged. 3. There are stable bilateral renal cysts. 4. Previous operative changes of cholecystectomy, prior gastric surgery and prior abdominal wall repair. 5. Diverticulosis without evidence of recurrent diverticulitis. 6. No free fluid or abscess demonstrated. Dictated by: Dictated on workstation # [id number]
[2016-11-02] MEDS ORDERED: morphine INJ 10 MG/ML 1ML (SYR OR VIAL) IVP ONE (22:15)
[2016-11-02] MEDS ORDERED: TAMS0.4C98 PO ×2 (22:16→23:05)
[2016-11-02 22:17] LABS: ALBUMIN 3.3 GM/DL (3.2-4.5); BILIRUBIN,TOTAL 0.7 MG/DL (0.1-1.0); CALCIUM 8.4 MG/DL (8.5-10.1); CREATININE SERUM 1.48 MG/DL (0.60-1.30); POTASSIUM 3.4 MMOL/L (3.6-5.0)
[2016-11-02] MEDS ORDERED: CIPR250T3 PO ×2 (22:24→23:05)
[2016-11-02] MEDS ORDERED: RX-ONDANSETRON 4 MG ODT (ZOFRAN) PPK #4 PO STA (22:26)
[2016-11-02] MEDS ORDERED: cloNIDine 0.1 MG (CATAPRES) TAB PO ONE (22:30)
[2016-11-02] MEDS ORDERED: CIPROFLOXACIN 500 MG (CIPRO) TABLET PO SCH (22:30)
[2016-11-02 23:04] VITALS: BP 173/98
--- NOTE | 2016-11-03 08:21 | Diagnostic Imaging Report ---
INDICATION: Right-sided stone, pain. FINDINGS: There are postoperative changes of hernia repair. There is no bowel obstruction. Bilateral intrarenal stones redemonstrated. Projecting along the lateral margin of the right mid sacrum is a 3.8 mm calcification likely in the stone in the ureter noted at earlier CT. IMPRESSION: Distal third right ureteral stone radiographically appeared unchanged from prior CT. Bilateral intrarenal calculi redemonstrated. Dictated by: Dictated on workstation # [id number]
== END 2016-11-02 23:04 | disposition home or self-care (01) ==
LOC: EDUNIT# 21:19 → ER 21:21
DX: N20.1 Calculus of ureter (principal); G47.30 Sleep apnea, unspecified; I10 Essential (primary) hypertension; E78.00 Pure hypercholesterolemia, unspecified; N40.0 Benign prostatic hyperplasia without lower urinary tract symptoms; K21.9 Gastro-esophageal reflux disease without esophagitis; M17.0 Bilateral primary osteoarthritis of knee; M10.9 Gout, unspecified; F41.9 Anxiety disorder, unspecified; F32.9 Major depressive disorder, single episode, unspecified; Z80.0 Family history of malignant neoplasm of digestive organs; Z82.49 Family history of ischemic heart disease and other diseases of the circulatory system; Z86.010 Personal history of colon polyps; Z87.442 Personal history of urinary calculi; Z87.448 Personal history of other diseases of urinary system; Z86.718 Personal history of other venous thrombosis and embolism; Z87.19 Personal history of other diseases of the digestive system; Z98.84 Bariatric surgery status; Z90.89 Acquired absence of other organs
CPT/HCPCS: 36415; 74000; 74176; 80053; 81000; 85025; 96374; 96375

== ENCOUNTER → 2017-03-16 | Outpatient (CLI) | payer MEDICARE ==
[~2017-03-16] MED LIST changes: +CIPR250T3 PO; +IOHEXOL 350 MG/ML 100 ML (OMNIPAQUE 350) VIAL IV ONE; +NAPR-1070 PO; -NAPR550T PO; +NS 100 ML (IVPB) BAG IV ONE
[2017-03-16 14:34] LABS: GFR ESTIMATED > 60
--- NOTE | 2017-03-16 15:12 | Diagnostic Imaging Report ---
PROCEDURE: CT chest with contrast only. TECHNIQUE: Multiple contiguous axial images were obtained through the chest after administration of intravenous contrast. INDICATION: Cough. Correlation made with overlapped images from an abdominal CT 11/02/2016. FINDINGS: There is no pneumonia or focal pulmonary consolidation. No effusion or pneumothorax. There is benign calcified hilar and mediastinal granulomatous residua with no suspicious noncalcified chest mass. There is no pleural or pericardial effusion. Upper abdomen reveals postoperative changes to the EG junction and cholecystectomy. IMPRESSION: No mass, infiltrate, effusion or acute finding. Dictated by: Dictated on workstation # [id number]
== END ==
LOC: RAD 13:23
PROVIDERS: ATTEND Nurse Practitioner Family
DX: J18.1 Lobar pneumonia, unspecified organism (principal)
CPT/HCPCS: 36415; 71260; 82565; 84520

== ENCOUNTER 2017-04-04 15:10 | Emergency (ER) | payer MEDICARE ==
[~2017-04-04] VITALS: Ht 177.8 cm; Wt 142.9 kg
[~2017-04-04 15:10] MED LIST changes: -IOHEXOL 350 MG/ML 100 ML (OMNIPAQUE 350) VIAL IV ONE; -NS 100 ML (IVPB) BAG IV ONE
--- OUTSIDE RECORDS SUMMARY | 2017-04-04 15:16 | XMS REPORT ---
Author Author CHRIS STEVENSON [facility] Address [address] [place] [address] Care Team Providers Care Metal Pattern Maker Name Role Phone GRAHAMELLIOTT HANNAHANY Unavailable PROBLEMS Type Condition ICD9-CM Code [id number] Code Onset Dates Condition Status SNOMED Code Problem Obstructive sleep apnea syndrome G47.33 Active 06481050 Problem History of diverticulitis Z87.19 Active 093745032779364 Problem Allergic rhinitis, unspecified allergic rhinitis type J30.9 Active 45094536 Problem Erectile dysfunction due to diseases classified elsewhere N52.1 Active 441522245 Problem Essential hypertension I10 Active 59868115 Problem Acute right-sided low back pain with right-sided sciatica M54.41 Active 046218023 Problem Nephrolithiasis N20.0 Active 34265024 Problem Nocturnal hypoxia G47.34 Active 375197063 Problem Chronic prescription opiate use Z79.899 Active 291935150 Problem 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 Active 09276627 Problem Benign prostatic hyperplasia, presence of lower urinary tract symptoms unspecified, unspecified morphology N40.0 Active 350534517 Problem Moderate episode of recurrent major depressive disorder F33.1 Active 731530384 Problem Urge incontinence N39.41 Active 611063206 Problem Low back pain M54.5 Active 422811537 Problem Psoriasis L40.9 Active 4274061 Problem Anxiety F41.9 Active 20772411 Problem Hyperlipidemia, unspecified E78.5 Active 56106723 Problem Esophageal stricture K22.2 Active 86436791 Problem Cervicalgia M54.2 Active 1022044673008 Problem Chronic gout, unspecified cause, unspecified site M1A.9XX0 Active 44312200 Problem Renal cyst, left N28.1 Active 68487083 Problem Primary insomnia F51.01 Active 101001070 Problem History of weight loss surgery Z98.84 Active 818528156 ALLERGIES No Information SOCIAL HISTORY Never Assessed PLAN OF CARE VITAL SIGNS MEDICATIONS Medication Instructions Dosage Frequency Start Date End Date Duration Status Clonazepam 1 MG Orally Once a day as needed for anxiety 1 tablet June, 28 days Active RESULTS No Results PROCEDURES No Known procedures IMMUNIZATIONS No Known Immunizations MEDICAL (GENERAL) HISTORY Type Description Date Medical History hypertension Medical History sleep apnea-did not tolerate CPAP Medical History oxygen dependent at [facility] Medical History colonic polyps Medical History hyperlipidemia Medical History Arthritis Medical History degenerative disease cervical spine Medical History back pain Medical History anxiety Medical History deep vein thrombosis-LLE 01/2012 after leg inury Medical History obesity Medical History essential tremor Medical History chronic obstructive pulmonary disease (COPD) Medical History Gout Medical History irritable bowel syndrome Medical History allergic rhinitis Medical History rosacea Medical History decreased libido Medical History Venous embolism and thrombosis of unspecified deep vessels of lower extremity Surgical History colonoscopy (Kishan)-polyp x3 removed 2004 Surgical History colonoscopy (Eulalia)-normal 2005 Surgical History colonoscopy (Su)-polyp removed 10/2009 Surgical History EGD (Su)-gastritis 10/2009 Surgical History gastric sleeve Surgical History cholecystectomy Surgical History hammer toe Surgical History sinus surgery Surgical History tonsillectomy Surgical History umbilical hernia repair Surgical History hiatal hernia repair Surgical History left knee arthroscopy-torn meniscus (Reveal) 06/2009 Surgical History Kidney stones blasted 04/2015 Surgical History right knee replacement 07/2015 Hospitalization History Hernia Surgery 09/27/2014 Hospitalization History gastric sleeve surgery 08/2013
--- OUTSIDE RECORDS SUMMARY | 2017-04-04 15:16 | XMS REPORT ---
Author Author CHRIS STEVENSON [facility] Address [address] [place] [address] Care Team Providers Care Sifter Operator Name Role Phone GRAHAMELLIOTT HANNAHANY Unavailable PROBLEMS Type Condition ICD9-CM Code [id number] Code Onset Dates Condition Status SNOMED Code Problem Obstructive sleep apnea syndrome G47.33 Active 84428400 Problem History of diverticulitis Z87.19 Active 522630873769735 Problem Allergic rhinitis, unspecified allergic rhinitis type J30.9 Active 00866711 Problem Erectile dysfunction due to diseases classified elsewhere N52.1 Active 986752581 Problem Essential hypertension I10 Active 38126392 Problem Acute right-sided low back pain with right-sided sciatica M54.41 Active 900080576 Problem Nephrolithiasis N20.0 Active 23067739 Problem Nocturnal hypoxia G47.34 Active 873117894 Problem Chronic prescription opiate use Z79.899 Active 341067231 Problem 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 Active 58843133 Problem Benign prostatic hyperplasia, presence of lower urinary tract symptoms unspecified, unspecified morphology N40.0 Active 252951008 Problem Moderate episode of recurrent major depressive disorder F33.1 Active 330647081 Problem Urge incontinence N39.41 Active 982603016 Problem Low back pain M54.5 Active 415014518 Problem Psoriasis L40.9 Active 9371938 Problem Anxiety F41.9 Active 52118034 Problem Hyperlipidemia, unspecified E78.5 Active 95221006 Problem Esophageal stricture K22.2 Active 82908569 Problem Cervicalgia M54.2 Active 4735978412021 Problem Chronic gout, unspecified cause, unspecified site M1A.9XX0 Active 41283477 Problem Renal cyst, left N28.1 Active 50396064 Problem Primary insomnia F51.01 Active 264680410 Problem History of weight loss surgery Z98.84 Active 641253055 ALLERGIES No Information SOCIAL HISTORY Never Assessed PLAN OF CARE VITAL SIGNS MEDICATIONS Medication Instructions Dosage Frequency Start Date End Date Duration Status Endocet 10-325 MG Orally every 4-6 hours 1 tablet as needed 14 Dec, 2015 Active Tizanidine HCl 4 MG Orally 3-4 times daily 1 tablet as needed Apr, Active RESULTS No Results PROCEDURES No Known procedures IMMUNIZATIONS No Known Immunizations MEDICAL (GENERAL) HISTORY Type Description Date Medical History hypertension Medical History sleep apnea-did not tolerate CPAP Medical History oxygen dependent at [facility] Medical History colonic polyps Medical History [...]
--- OUTSIDE RECORDS SUMMARY | 2017-04-04 15:16 | XMS REPORT | Clinical Summary ---
Author Author [facility] Organization [facility] Address Unknown Phone Unavailable Care Team Providers Care Pediatric Immunologist Name Role Phone Crystal Burton MD PCP Roxy Escoto MD Unavailable Source Comments Some departments are not documenting in the electronic medical record. If you do not see the information that you expected, contact Release of Information in the Health Information Management department at [phone] for further assistance in locating additional records.[facility] Allergies Not on File Current Medications [...] VACCINE 2009 PREVNAR/PNEUMOVAX (#1) 2014 INFLUENZA VACCINE 09/30/2016 Results Not on filefrom Last 3 Months
--- OUTSIDE RECORDS SUMMARY | 2017-04-04 15:16 | XMS REPORT ---
Author Author JOSEPH SHAW Organization [facility] Address [address] [place] [address] Care Team Providers Care Hazmat Cdl Driver Name Role Phone JOSEPH SHAW Unavailable PROBLEMS Type Condition ICD9-CM Code [id number] Code Onset Dates Condition Status SNOMED Code Problem Obstructive sleep apnea syndrome G47.33 Active 45677612 Problem History of diverticulitis Z87.19 Active 495559107112117 Problem Allergic rhinitis, unspecified allergic rhinitis type J30.9 Active 44632771 Problem Erectile dysfunction due to diseases classified elsewhere N52.1 Active 311920846 Problem Essential hypertension I10 Active 49443158 Problem Acute right-sided low back pain with right-sided sciatica M54.41 Active 081289294 Problem Nephrolithiasis N20.0 Active 58667648 Problem Nocturnal hypoxia G47.34 Active 151519187 Problem Chronic prescription opiate use Z79.899 Active 656581446 Problem 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 Active 89784699 Problem Benign prostatic hyperplasia, presence of lower urinary tract symptoms unspecified, unspecified morphology N40.0 Active 925545413 Problem Moderate episode of recurrent major depressive disorder F33.1 Active 892254114 Problem Urge incontinence N39.41 Active 018856420 Problem Low back pain M54.5 Active 766347261 Problem Psoriasis L40.9 Active 5001512 Problem Anxiety F41.9 Active 20303733 Problem Hyperlipidemia, unspecified E78.5 Active 26138945 Problem Esophageal stricture K22.2 Active 08404982 Problem Cervicalgia M54.2 Active 2577212266148 Problem Chronic gout, unspecified cause, unspecified site M1A.9XX0 Active 57068823 Problem Primary insomnia F51.01 Active 931211999 Problem History of weight loss surgery Z98.84 Active 217334786 ALLERGIES Unknown Allergies SOCIAL HISTORY No smoking Hx information available PLAN OF CARE VITAL SIGNS MEDICATIONS Unknown Medications RESULTS No Results PROCEDURES No Known procedures IMMUNIZATIONS No Known Immunizations
--- OUTSIDE RECORDS SUMMARY | 2017-04-04 15:18 | XMS REPORT ---
Author Author JOSEPH SHAW Organization [facility] Address [address] [place] [address] Care Team Providers Care Emergency Vehicle Dispatcher Name Role Phone SHAWJOSEPH Wetzel Unavailable PROBLEMS Type Condition ICD9-CM Code EUC36-PM Code Onset Dates Condition Status SNOMED Code Problem Obstructive sleep apnea syndrome G47.33 Active 41231991 Problem History of diverticulitis Z87.19 Active 915797554623234 Problem Allergic rhinitis, unspecified allergic rhinitis type J30.9 Active 31194805 Problem Erectile dysfunction due to diseases classified elsewhere N52.1 Active 617765097 Problem Essential hypertension I10 Active 52081498 Problem Acute right-sided low back pain with right-sided sciatica M54.41 Active 806900216 Problem Nephrolithiasis N20.0 Active 71468747 Problem Nocturnal hypoxia G47.34 Active 673264399 Problem Chronic prescription opiate use Z79.899 Active 097362577 Problem 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 Active 50864378 Problem Benign prostatic hyperplasia, presence of lower urinary tract symptoms unspecified, unspecified morphology N40.0 Active 264499611 Problem Moderate episode of recurrent major depressive disorder F33.1 Active 898788925 Problem Urge incontinence N39.41 Active 302806761 Problem Low back pain M54.5 Active 094292926 Problem Psoriasis L40.9 Active 6075451 Problem Anxiety F41.9 Active 80156912 Problem Hyperlipidemia, unspecified E78.5 Active 52003003 Problem Esophageal stricture K22.2 Active 81471958 Problem Cervicalgia M54.2 Active 8684864994247 Problem Chronic gout, unspecified cause, unspecified site M1A.9XX0 Active 27446765 Problem Primary insomnia F51.01 Active 679450895 Problem History of weight loss surgery Z98.84 Active 287714800 ALLERGIES Substance Reaction Event Type Date Status Sulfamethoxazole Unknown Drug Allergy Mar, Active Benazepril HCl hypotension Drug Allergy Mar, Active Ampicillin hives Drug Allergy Mar, Active SOCIAL HISTORY No smoking Hx information available PLAN OF CARE Activity Details Follow Up 4 Weeks Reason:f/u with PCP VITAL SIGNS Height 69 in 2016-03-20 Weight 256.5 lbs 2016-03-20 Temperature 97.9 degrees Fahrenheit 2016-03-20 Heart Rate 82 bpm 2016-03-20 Respiratory Rate 20 2016-03-20 BMI 37.87 kg/m2 2016-03-20 Blood pressure systolic 144 mmHg 2016-03-20 Blood pressure diastolic 86 mmHg 2016-03-20 MEDICATIONS Medication Instructions Dosage Frequency Start Date End Date Duration Status Multivitamin BID May, Active Duloxetine HCl 60 MG Orally Once a day 1 capsule 24h Nov, 90 day(s) Active Garlic 1,000 mg 3 Capsule 2 times per day Dec, Active Omeprazole 20 MG Orally 2 times a day 1 capsule 12h Active Clonazepam 1 MG Orally Once a day as needed for anxiety 1 tablet June, Active Flomax 0.4 MG Orally Once a day 1 capsule 30 minutes after the same meal each day 24h Active Naproxen 500 MG Orally every 12 hrs 1 tablet as needed 12h Active Allopurinol 100 MG TAKE 1 TABLET BY MOUTH DAILY 30 Active Nasonex 50 MCG/ACT spray 1 sprays in each nostril by INTRANASAL route 2 times per day Active Clobetasol Propionate 0.05 % Externally Twice a day 1 application to affected area 12h Sep, 07 days Active Cyclobenzaprine HCl 10 mg Orally Three times a day 1 tablet 8h Mar, Mar, 10 days Active Vitamin D-3 1000 UNIT Orally Once a day 5 capsule 24h Active Endocet 10-325 MG Orally 4 times a day 1 tablet as needed 6h Nov, 28 days Active Trazodone HCl 150 MG TAKE 1 TABLET BY MOUTH EVERY DAY DAILY AT BEDTIME 30 Active RESULTS Name Result Date Reference Range MRI : Lumbar w/o contrast 2016-03-31 PROCEDURES Procedure Date Ordered Related Diagnosis Body Site [facility] VISIT ESTABLISHED PATIENT Mar 20, 2016 Office Visit, Est Pt., Level 3 Mar 20, 2016 IMMUNIZATIONS No Known Immunizations
--- OUTSIDE RECORDS SUMMARY | 2017-04-04 15:19 | XMS REPORT ---
Author Author CHRIS STEVENSON [facility] Address [address] [place] [address] Care Team Providers Care Burial Vault Setter Name Role Phone GRAHAMELLIOTT HANNAHANY Unavailable PROBLEMS Type Condition ICD9-CM Code [id number] Code Onset Dates Condition Status SNOMED Code Problem Obstructive sleep apnea syndrome G47.33 Active 87901998 Problem History of diverticulitis Z87.19 Active 218887506101414 Problem Allergic rhinitis, unspecified allergic rhinitis type J30.9 Active 01480258 Problem Erectile dysfunction due to diseases classified elsewhere N52.1 Active 678868807 Problem Essential hypertension I10 Active 31128662 Problem Acute right-sided low back pain with right-sided sciatica M54.41 Active 051082777 Problem Nephrolithiasis N20.0 Active 27104114 Problem Nocturnal hypoxia G47.34 Active 767953616 Problem Chronic prescription opiate use Z79.899 Active 948767174 Problem 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 Active 40510776 Problem Benign prostatic hyperplasia, presence of lower urinary tract symptoms unspecified, unspecified morphology N40.0 Active 519978661 Problem Moderate episode of recurrent major depressive disorder F33.1 Active 537706248 Problem Urge incontinence N39.41 Active 783409963 Problem Low back pain M54.5 Active 944569035 Problem Psoriasis L40.9 Active 6725594 Problem Anxiety F41.9 Active 91485172 Problem Hyperlipidemia, unspecified E78.5 Active 10970093 Problem Esophageal stricture K22.2 Active 81513832 Problem Cervicalgia M54.2 Active 7299672431791 Problem Chronic gout, unspecified cause, unspecified site M1A.9XX0 Active 65526922 Problem Renal cyst, left N28.1 Active 80541623 Problem Primary insomnia F51.01 Active 546977195 Problem History of weight loss surgery Z98.84 Active 925824063 ALLERGIES No Information SOCIAL HISTORY Never Assessed [...] tolerate CPAP Medical History oxygen dependent at [facility] Medical History colonic polyps Medical History [...]
--- OUTSIDE RECORDS SUMMARY | 2017-04-04 15:20 | XMS REPORT ---
Author Author CHRIS STEVENSON [facility] Address [address] [place] [address] Care Team Providers Care Flight Physician Name Role Phone LIBBY STEVENSONY Unavailable PROBLEMS Type Condition ICD9-CM Code BIH74-MH Code Onset Dates Condition Status SNOMED Code Problem Obstructive sleep apnea syndrome G47.33 Active 87318889 Problem History of diverticulitis Z87.19 Active 980873243074911 Problem Allergic rhinitis, unspecified allergic rhinitis type J30.9 Active 38986689 Problem Erectile dysfunction due to diseases classified elsewhere N52.1 Active 807929261 Problem Essential hypertension I10 Active 03584290 Problem Acute right-sided low back pain with right-sided sciatica M54.41 Active 638789820 Problem Nephrolithiasis N20.0 Active 29063846 Problem Nocturnal hypoxia G47.34 Active 484583491 Problem Chronic prescription opiate use Z79.899 Active 773154923 Problem 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 Active 49958151 Problem Benign prostatic hyperplasia, presence of lower urinary tract symptoms unspecified, unspecified morphology N40.0 Active 116080191 Problem Moderate episode of recurrent major depressive disorder F33.1 Active 445097851 Problem Urge incontinence N39.41 Active 327394102 Problem Low back pain M54.5 Active 568039748 Problem Psoriasis L40.9 Active 6307730 Problem Anxiety F41.9 Active 45298493 Problem Hyperlipidemia, unspecified E78.5 Active 45451694 Problem Esophageal stricture K22.2 Active 27284173 Problem Cervicalgia M54.2 Active 3670287183909 Problem Chronic gout, unspecified cause, unspecified site M1A.9XX0 Active 85445511 Problem Primary insomnia F51.01 Active 401118364 Problem History of weight loss surgery Z98.84 Active 572671358 ALLERGIES Unknown Allergies SOCIAL HISTORY No smoking Hx information available PLAN OF CARE VITAL SIGNS MEDICATIONS Medication Instructions Dosage Frequency Start Date End Date Duration Status Tizanidine HCl 4 MG Orally 3-4 times daily 1 tablet as needed Apr, Active Endocet 10-325 MG Orally every 4-6 hours 1 tablet as needed Nov, Active RESULTS No Results PROCEDURES No Known procedures IMMUNIZATIONS No Known Immunizations
--- OUTSIDE RECORDS SUMMARY | 2017-04-04 15:20 | XMS REPORT ---
Author Author GRAHAM CHRIS Organization [facility] Address [address] [place] [address] Care Team Providers Care Jigger Operator Name Role Phone CHRIS STEVENSON Unavailable PROBLEMS Type Condition ICD9-CM Code QRB70-WF Code Onset Dates Condition Status SNOMED Code Problem Obstructive sleep apnea syndrome G47.33 Active 00408519 Problem History of diverticulitis Z87.19 Active 027622488655314 Problem Allergic rhinitis, unspecified allergic rhinitis type J30.9 Active 95223075 Problem Erectile dysfunction due to diseases classified elsewhere N52.1 Active 456347027 Problem Essential hypertension I10 Active 27108231 Problem Acute right-sided low back pain with right-sided sciatica M54.41 Active 222138684 Problem Nephrolithiasis N20.0 Active 76223981 Problem Nocturnal hypoxia G47.34 Active 286567754 Problem Chronic prescription opiate use Z79.899 Active 342361836 Problem 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 Active 70326486 Problem Benign prostatic hyperplasia, presence of lower urinary tract symptoms unspecified, unspecified morphology N40.0 Active 861857579 Problem Moderate episode of recurrent major depressive disorder F33.1 Active 267546081 Problem Urge incontinence N39.41 Active 521513431 Problem Low back pain M54.5 Active 383812024 Problem Psoriasis L40.9 Active 8701855 Problem Anxiety F41.9 Active 73069948 Problem Hyperlipidemia, unspecified E78.5 Active 07619819 Problem Esophageal stricture K22.2 Active 48163988 Problem Cervicalgia M54.2 Active 4389100614405 Problem Chronic gout, unspecified cause, unspecified site M1A.9XX0 Active 79741227 Problem Primary insomnia F51.01 Active 371089574 Problem History of weight loss surgery Z98.84 Active 113310950 ALLERGIES Unknown Allergies SOCIAL HISTORY No smoking Hx information available PLAN OF CARE VITAL SIGNS MEDICATIONS Unknown Medications RESULTS No Results PROCEDURES Procedure Date Ordered Related Diagnosis Body Site LAB NOT BILLED BY [facility] Apr 04, 2016 HERPES SIMPLEX TYPE 2 Apr 04, 2016 No Charge Apr 04, 2016 HERPES SIMPLEX TEST Apr 04, 2016 VENIPUNCT, ROUTINE* Apr 04, 2016 IMMUNIZATIONS No Known Immunizations
--- OUTSIDE RECORDS SUMMARY | 2017-04-04 15:20 | XMS REPORT ---
Author Author JOSEPH SHAW Organization [facility] Address [address] [place] [address] Care Team Providers Care Cyber Security Systems Engineer Name Role Phone SHAWJOSEPH Wetzel Unavailable PROBLEMS Type Condition ICD9-CM Code SLC11-BS Code Onset Dates Condition Status SNOMED Code Problem Obstructive sleep apnea syndrome G47.33 Active 16901081 Problem History of diverticulitis Z87.19 Active 987006529501389 Problem Allergic rhinitis, unspecified allergic rhinitis type J30.9 Active 14343756 Problem Erectile dysfunction due to diseases classified elsewhere N52.1 Active 624760232 Problem Essential hypertension I10 Active 12642208 Problem Acute right-sided low back pain with right-sided sciatica M54.41 Active 938412625 Problem Nephrolithiasis N20.0 Active 28253468 Problem Nocturnal hypoxia G47.34 Active 867226969 Problem Chronic prescription opiate use Z79.899 Active 536672286 Problem 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 Active 30596440 Problem Benign prostatic hyperplasia, presence of lower urinary tract symptoms unspecified, unspecified morphology N40.0 Active 201680228 Problem Moderate episode of recurrent major depressive disorder F33.1 Active 875877248 Problem Urge incontinence N39.41 Active 812625408 Problem Low back pain M54.5 Active 718459545 Problem Psoriasis L40.9 Active 2717932 Problem Anxiety F41.9 Active 34660300 Problem Hyperlipidemia, unspecified E78.5 Active 95366043 Problem Esophageal stricture K22.2 Active 35627562 Problem Cervicalgia M54.2 Active 6638507050288 Problem Chronic gout, unspecified cause, unspecified site M1A.9XX0 Active 20247599 Problem Primary insomnia F51.01 Active 518517091 Problem History of weight loss surgery Z98.84 Active 534304830 ALLERGIES Unknown Allergies SOCIAL HISTORY No smoking Hx information available PLAN OF CARE VITAL SIGNS MEDICATIONS Medication Instructions Dosage Frequency Start Date End Date Duration Status Valium 5 mg Orally one time prior to MRI 1 tablet Mar, 1 dose Active RESULTS No Results PROCEDURES No Known procedures IMMUNIZATIONS No Known Immunizations
--- OUTSIDE RECORDS SUMMARY | 2017-04-04 15:20 | XMS REPORT ---
Author Author JOSEPH SHAW Organization [facility] Address [address] [place] [address] Care Team Providers Care Switch Cleaner Name Role Phone JOSEPH SHAW Unavailable PROBLEMS Type Condition ICD9-CM Code [id number] Code Onset Dates Condition Status SNOMED Code Problem Obstructive sleep apnea syndrome G47.33 Active 07458756 Problem History of diverticulitis Z87.19 Active 716197508455008 Problem Allergic rhinitis, unspecified allergic rhinitis type J30.9 Active 16016411 Problem Erectile dysfunction due to diseases classified elsewhere N52.1 Active 645388906 Problem Essential hypertension I10 Active 76238382 Problem Acute right-sided low back pain with right-sided sciatica M54.41 Active 560632254 Problem Nephrolithiasis N20.0 Active 91533329 Problem Nocturnal hypoxia G47.34 Active 446205921 Problem Chronic prescription opiate use Z79.899 Active 427868290 Problem 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 Active 97652595 Problem Benign prostatic hyperplasia, presence of lower urinary tract symptoms unspecified, unspecified morphology N40.0 Active 460462421 Problem Moderate episode of recurrent major depressive disorder F33.1 Active 871300970 Problem Urge incontinence N39.41 Active 369443439 Problem Low back pain M54.5 Active 738561721 Problem Psoriasis L40.9 Active 3095431 Problem Anxiety F41.9 Active 41131432 Problem Hyperlipidemia, unspecified E78.5 Active 59925159 Problem Esophageal stricture K22.2 Active 00855700 Problem Cervicalgia M54.2 Active 9662395562779 Problem Chronic gout, unspecified cause, unspecified site M1A.9XX0 Active 70734688 Problem Primary insomnia F51.01 Active 456586271 Problem History of weight loss surgery Z98.84 Active 146649490 ALLERGIES Unknown Allergies SOCIAL HISTORY No smoking Hx information available PLAN OF CARE VITAL SIGNS MEDICATIONS Unknown Medications RESULTS No Results PROCEDURES No Known procedures IMMUNIZATIONS No Known Immunizations
--- OUTSIDE RECORDS SUMMARY | 2017-04-04 15:20 | XMS REPORT ---
Author Author GRAHAM CHRIS [facility] Address [address] [place] [address] Care Team Providers Care Blacksmith Apprentice Name Role Phone CHRIS STEVENSON Unavailable PROBLEMS Type Condition ICD9-CM Code JWC64-UX Code Onset Dates Condition Status SNOMED Code Problem Obstructive sleep apnea syndrome G47.33 Active 64560853 Problem History of diverticulitis Z87.19 Active 552722745866731 Problem Allergic rhinitis, unspecified allergic rhinitis type J30.9 Active 67386132 Problem Erectile dysfunction due to diseases classified elsewhere N52.1 Active 889556639 Problem Essential hypertension I10 Active 67178372 Problem Acute right-sided low back pain with right-sided sciatica M54.41 Active 727392338 Problem Nephrolithiasis N20.0 Active 93632569 Problem Nocturnal hypoxia G47.34 Active 663336541 Problem Chronic prescription opiate use Z79.899 Active 269447860 Problem 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 Active 17067352 Problem Benign prostatic hyperplasia, presence of lower urinary tract symptoms unspecified, unspecified morphology N40.0 Active 248284628 Problem Moderate episode of recurrent major depressive disorder F33.1 Active 686993396 Problem Urge incontinence N39.41 Active 705644835 Problem Low back pain M54.5 Active 090291391 Problem Psoriasis L40.9 Active 1254174 Problem Anxiety F41.9 Active 01966942 Problem Hyperlipidemia, unspecified E78.5 Active 60492852 Problem Esophageal stricture K22.2 Active 19225811 Problem Cervicalgia M54.2 Active 5131470847058 Problem Chronic gout, unspecified cause, unspecified site M1A.9XX0 Active 20000976 Problem Primary insomnia F51.01 Active 799542782 Problem History of weight loss surgery Z98.84 Active 995750680 ALLERGIES Unknown Allergies SOCIAL HISTORY No smoking Hx information available PLAN OF CARE VITAL SIGNS MEDICATIONS Medication Instructions Dosage Frequency Start Date End Date Duration Status Clonazepam 1 MG Orally Once a day as needed for anxiety 1 tablet June, 28 days Active RESULTS No Results PROCEDURES No Known procedures IMMUNIZATIONS No Known Immunizations
--- OUTSIDE RECORDS SUMMARY | 2017-04-04 15:20 | XMS REPORT ---
Author Author CHRIS STEVENSON [facility] Address [address] [place] [address] Care Team Providers Care Skein Yarn Drier Name Role Phone GRAHAMELLIOTT HANNAHANY Unavailable PROBLEMS Type Condition ICD9-CM Code ITZ57-WD Code Onset Dates Condition Status SNOMED Code Problem Obstructive sleep apnea syndrome G47.33 Active 77150342 Problem History of diverticulitis Z87.19 Active 289634996274901 Problem Allergic rhinitis, unspecified allergic rhinitis type J30.9 Active 33909297 Problem Erectile dysfunction due to diseases classified elsewhere N52.1 Active 268014412 Problem Essential hypertension I10 Active 82678389 Problem Acute right-sided low back pain with right-sided sciatica M54.41 Active 928972199 Problem Nephrolithiasis N20.0 Active 60287206 Problem Nocturnal hypoxia G47.34 Active 897434807 Problem Chronic prescription opiate use Z79.899 Active 241314091 Problem 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 Active 26297832 Problem Benign prostatic hyperplasia, presence of lower urinary tract symptoms unspecified, unspecified morphology N40.0 Active 477000176 Problem Moderate episode of recurrent major depressive disorder F33.1 Active 888087021 Problem Urge incontinence N39.41 Active 114197553 Problem Low back pain M54.5 Active 644337999 Problem Psoriasis L40.9 Active 7273429 Problem Anxiety F41.9 Active 48420083 Problem Hyperlipidemia, unspecified E78.5 Active 04387969 Problem Esophageal stricture K22.2 Active 53121139 Problem Cervicalgia M54.2 Active 2105151418706 Problem Chronic gout, unspecified cause, unspecified site M1A.9XX0 Active 70991217 Problem Primary insomnia F51.01 Active 582092524 Problem History of weight loss surgery Z98.84 Active 638433657 ALLERGIES No Information SOCIAL HISTORY Never Assessed PLAN OF CARE VITAL SIGNS MEDICATIONS Unknown Medications RESULTS No Results PROCEDURES No Known procedures IMMUNIZATIONS No Known Immunizations MEDICAL (GENERAL) HISTORY Type Description Date Medical History hypertension Medical History sleep apnea-did not tolerate CPAP Medical History oxygen dependent at [facility] Medical History colonic polyps Medical History [...] vessels of lower extremity Surgical History colonoscopy ([facility])-polyp x3 removed 2004 Surgical History colonoscopy ([facility])-normal [...]
--- NOTE | 2017-04-04 15:22 | ED Lower Extremity ---
General Stated Complaint: POSS BROKEN L FOOT Source: patient Exam Limitations: no limitations History of Present Illness Date Seen by Provider: Apr 04, 2017 Time Seen by Provider: 15:20 Initial Comments To ER with pain over the left ankle. He's been having some pain in his right foot is been putting more weight on his left leg. Yesterday while walking across the parking lot he twisted his ankle and felt a popping sensation. He was in [place] at the [facility] and had 3 x-rays of the ankle. He was told that there was a fracture there but they couldn't tell if it was new or old. He does not recall any previous injuries. He arrives without a splint on Onset: yesterday Severity: moderate Pain/Injury Location: left ankle Modifying Factors: Worse With Movement Allergies and Home Medications Allergies Coded Allergies: Penicillins (Unverified Allergy, Mild, 07/04/09) ampicillin (Unverified Allergy, Mild, RASH, 04/22/09) sulfacetamide (Verified Allergy, Mild, "MADE ME FEEL BAD", 03/19/15) egg (Unverified Allergy, Unknown, 07/19/15) FROM UNCODED ALLERGIES Home Medications Allopurinol 100 Mg Tab, 100 MG PO DAILY, (Reported) Cholecalciferol (Vitamin D3) 5,000 Unit Tablet, 5,000 UNIT PO DAILY, (Reported) Ciprofloxacin HCl 250 Mg Tablet, 250 MG PO BID, #10 . Prescribed by: MIESHA PARKS on 11/02/16 2305 Clonazepam 0.5 Mg Tablet, 0.5 MG PO HS, (Reported) NEEDED FOR ANXIETY Diclofenac Sodium 75 Mg Tablet.dr, 75 MG PO BID, (Reported) Garlic 2,000 Mg Capsule, 2,000 MG PO DAILY, (Reported) Mometasone Furoate 17 Gm [place], 1 SPRAY NSEACH HS, #1 (Reported) Multivitamin 1 Each Tablet, 2 EACH PO BID, (Reported) Naproxen Sodium 550 Mg Tablet, 550 MG PO BID, #60 Prescribed by: FAUSTINO BRYAN on 03/16/16 1751 Omeprazole 20 Mg Capsule., 20 MG PO BID, (Reported) Oxycodone Hcl/Acetaminophen 1 Each Tablet, 1 EACH PO Q6HR PRN PRN for PAIN, ( Reported) Prednisone 20 Mg Tab, 40 MG PO DAILY, #10 Ref 0 Prescribed by: NASIR DOMINIQUE on 10/28/16 1304 Tamsulosin HCl 0.4 Mg Cap.er.24h, 0.4 MG PO DAILY, (Reported) Tamsulosin HCl 0.4 Mg Cap, 0.4 MG PO DAILY, #10 . Prescribed by: MIESHA PARKS on 11/02/16 2305 Trazodone HCl 150 Mg Tablet, 150 MG PO HS, (Reported) Trazodone Hcl 150 Mg Tablet, 150 MG PO HS, (Reported) Constitutional: see HPI EENTM: see HPI Respiratory: no symptoms reported Cardiovascular: no symptoms reported Genitourinary: no symptoms reported Musculoskeletal: see HPI Skin: no symptoms reported Psychiatric/Neurological: No Symptoms Reported Past Gtgnpjd-Qqjzyl-Nrroql Hx Patient Social History Recent Foreign Travel: No Contact w/Someone Who Travel: No Recent Hopitalizations: No Immunizations Up To Date Tetanus Booster (TDap): Less than 5yrs Date of Pneumonia Vaccine: Mar 19, 2013 Seasonal Allergies Seasonal Allergies: Yes Surgeries History of Surgeries: Yes (HERNIA REPAIR, SINUS, FOOT, BARIATRIC, KNEE SCOPE, CYSTO) Surgeries: Abdominal, Adenoidectomy, Bladder Surgery, Gallbladder, Orthopedic, Renal, Tonsillectomy Respiratory History of Respiratory Disorde: Yes (USES CPAP) Respiratory Disorders: Sleep Apnea Cardiovascular History of Cardiac Disorders: Yes (2011-FROM FALL, TOOK COUMADIN FOR 6MONTHS) Cardiac Disorders: Deep Vein Thrombosis, High Cholesterol, Hypertension Neurological History of Neurological Disord: No Reproductive System Hx Reproductive Disorders: No Sexually Transmitted Disease: No HIV/AIDS: No Genitourinary Genitourinary Disorders: Benign Prostatic Hyperpl, Bladder Infection, Kidney Stones Gastrointestinal History of Gastrointestinal Di: Yes (HAS HAD GASTRIC SLEEVE) Gastrointestinal Disorders: Gastroesophageal Reflux, Chronic Constipation, Diverticulosis, Polyps, Hiatal Hernia, Irritable Bowel Musculoskeletal History of Musculoskeletal Dis: Yes (ARTHRITIS IN KNEES AND BACK) Musculoskeletal Disorders: Arthritis, Chronic Back Pain, Gout Endocrine History of Endocrine Disorders: No HEENT Loss of Vision: Bilateral Hearing Impairment: Denies Cancer History of Cancer: No Psychosocial History of Psychiatric Problem: Yes Behavioral Health Disorders: Sleep Difficulties, Anxiety, Depression Integumentary History of Skin or Integumenta: Yes (RED PATCHES ON FACE) Blood Transfusions History of Blood Disorders: No Adverse Reaction to a Blood Tr: No Family Medical History Significant Family History: No Pertinent Family Hx Family Medial History: Arthritis 19 MOTHER Cardiovascular disease 19 MOTHER Colon cancer 19 FATHER 19 MOTHER G8 SISTER Dementia 19 MOTHER Hypertension 19 MOTHER G8 BROTHER Respiratory disorder 19 FATHER (lung ca) Thyroid disease 19 MOTHER Physical Exam Vital Signs Vital Sign - Last 12Hours 04/04/17 15:20 Temp 97.2 Pulse 70 Resp 18 B/P (MAP) 194/105 (134) O2 Delivery Room Air Capillary Refill : General Appearance: WD/WN, no apparent distress HEENT: PERRL/EOMI, normal ENT inspection Neck: non-tender, full range of motion Respiratory: no respiratory distress, no accessory muscle use Gastrointestinal: normal bowel sounds, non tender Hips: bilateral hip non-tender, bilateral hip normal inspection, bilateral hip normal range of motion Legs: bilateral leg non-tender, bilateral leg normal inspection, bilateral leg normal range of motion Knees: bilateral knee non-tender, bilateral knee normal inspection, bilateral knee normal range of motion Ankles: left ankle pain, left ankle soft tissue tenderness, left ankle swelling Neurologic/Psychiatric: alert, normal mood/affect, oriented x 3 Skin: normal color, warm/dry Progress/Results/Core Measures Results/Orders My Orders Orders - MIESHA PARKS APRN Ankle, Left, 3 Views (04/04/17 15:20) Vital Signs/I&O Vital Sign - Last 12Hours 04/04/17 15:20 Temp 97.2 Pulse 70 Resp 18 B/P (MAP) 194/105 (134) O2 Delivery Room Air Departure Impression Impression: Primary Impression: Left ankle sprain Disposition: 01 HOME, SELF-CARE Condition: Stable Departure-Patient Inst. Decision time for Depature: 15:48 Referrals: CHRIS STEVENSON MD (PCP/Family) Primary Care Physician Patient Instructions: Ankle Sprain (DC) Add. Discharge Instructions: 1. Return to ER for any concerns 2. Elevation of the ankle as much as possible to help with swelling. MIESHA PARKS APRN Apr 04, 2017 15:22
--- OUTSIDE RECORDS SUMMARY | 2017-04-04 15:22 | XMS REPORT ---
Author Author CHRIS STEVENSON [facility] Address [address] [place] [address] Care Team Providers Care Senior Java Software Engineer Name Role Phone GRAHAMELLIOTT HANNAHANY Unavailable PROBLEMS Type Condition ICD9-CM Code DXS15-LP Code Onset Dates Condition Status SNOMED Code Problem Obstructive sleep apnea syndrome G47.33 Active 09230142 Problem History of diverticulitis Z87.19 Active 069343937489648 Problem Allergic rhinitis, unspecified allergic rhinitis type J30.9 Active 89124349 Problem Erectile dysfunction due to diseases classified elsewhere N52.1 Active 960798234 Problem Essential hypertension I10 Active 98905857 Problem Acute right-sided low back pain with right-sided sciatica M54.41 Active 249479007 Problem Nephrolithiasis N20.0 Active 27630281 Problem Nocturnal hypoxia G47.34 Active 066084630 Problem Chronic prescription opiate use Z79.899 Active 110475202 Problem 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 Active 07531724 Problem Benign prostatic hyperplasia, presence of lower urinary tract symptoms unspecified, unspecified morphology N40.0 Active 312175036 Problem Moderate episode of recurrent major depressive disorder F33.1 Active 899984415 Problem Urge incontinence N39.41 Active 565148458 Problem Low back pain M54.5 Active 807567075 Problem Psoriasis L40.9 Active 6157480 Problem Anxiety F41.9 Active 95269056 Problem Hyperlipidemia, unspecified E78.5 Active 69857314 Problem Esophageal stricture K22.2 Active 11058185 Problem Cervicalgia M54.2 Active 5361330887622 Problem Chronic gout, unspecified cause, unspecified site M1A.9XX0 Active 22866400 Problem Renal cyst, left N28.1 Active 80800212 Problem Primary insomnia F51.01 Active 636649565 Problem History of weight loss surgery Z98.84 Active 569128779 ALLERGIES No Information SOCIAL HISTORY Never Assessed PLAN OF CARE VITAL SIGNS MEDICATIONS Medication Instructions Dosage Frequency Start Date End Date Duration Status Clonazepam 1 MG Orally Once a day as needed for anxiety 1 tablet June, 28 days Active Endocet 10-325 MG Orally every 4-6 hours 1 tablet as needed Nov, Active RESULTS No Results PROCEDURES No Known procedures IMMUNIZATIONS No Known Immunizations MEDICAL (GENERAL) HISTORY Type Description Date Medical History hypertension Medical History sleep apnea-did not tolerate CPAP Medical History oxygen dependent at [facility] Medical History colonic polyps Medical History hyperlipidemia [...]
--- OUTSIDE RECORDS SUMMARY | 2017-04-04 15:22 | XMS REPORT ---
Author Author CHRIS STEVENSON [facility] Address [address] [place] [address] Care Team Providers Care Char Conveyor Tender Name Role Phone CHRIS STEVENSON Unavailable PROBLEMS Type Condition ICD9-CM Code TVQ37-RF Code Onset Dates Condition Status SNOMED Code Problem Obstructive sleep apnea syndrome G47.33 Active 30305481 Problem History of diverticulitis Z87.19 Active 182453540797253 Problem Allergic rhinitis, unspecified allergic rhinitis type J30.9 Active 72564051 Problem Erectile dysfunction due to diseases classified elsewhere N52.1 Active 122752907 Problem Essential hypertension I10 Active 54181382 Problem Acute right-sided low back pain with right-sided sciatica M54.41 Active 657186434 Problem Nephrolithiasis N20.0 Active 54944043 Problem Nocturnal hypoxia G47.34 Active 433168509 Problem Chronic prescription opiate use Z79.899 Active 705644436 Problem 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 Active 36182984 Problem Benign prostatic hyperplasia, presence of lower urinary tract symptoms unspecified, unspecified morphology N40.0 Active 788016657 Problem Moderate episode of recurrent major depressive disorder F33.1 Active 381775647 Problem Urge incontinence N39.41 Active 795933080 Problem Low back pain M54.5 Active 097298216 Problem Psoriasis L40.9 Active 5564430 Problem Anxiety F41.9 Active 35184205 Problem Hyperlipidemia, unspecified E78.5 Active 47214655 Problem Esophageal stricture K22.2 Active 81520660 Problem Cervicalgia M54.2 Active 6546105549695 Problem Chronic gout, unspecified cause, unspecified site M1A.9XX0 Active 19409538 Problem Primary insomnia F51.01 Active 777788753 Problem History of weight loss surgery Z98.84 Active 806362279 ALLERGIES Unknown Allergies SOCIAL HISTORY No smoking Hx information available PLAN OF CARE VITAL SIGNS MEDICATIONS Medication Instructions Dosage Frequency Start Date End Date Duration Status Endocet 10-325 MG Orally 4 times a day 1 tablet as needed 6h 14 Dec, 2015 28 days Active RESULTS No Results PROCEDURES No Known procedures IMMUNIZATIONS No Known Immunizations
--- OUTSIDE RECORDS SUMMARY | 2017-04-04 15:23 | XMS REPORT ---
Author Author CHRIS STEVENSON [facility] Address [address] [place] [address] Care Team Providers Care Customer Service Representative Teacher Name Role Phone GRAHAMELLIOTT HANNAHANY Unavailable PROBLEMS Type Condition ICD9-CM Code [id number] Code Onset Dates Condition Status SNOMED Code Problem Obstructive sleep apnea syndrome G47.33 Active 88550835 Problem History of diverticulitis Z87.19 Active 131877454988113 Problem Allergic rhinitis, unspecified allergic rhinitis type J30.9 Active 04114380 Problem Erectile dysfunction due to diseases classified elsewhere N52.1 Active 115678908 Problem Essential hypertension I10 Active 02268574 Problem Acute right-sided low back pain with right-sided sciatica M54.41 Active 830859779 Problem Nephrolithiasis N20.0 Active 81890913 Problem Nocturnal hypoxia G47.34 Active 014574940 Problem Chronic prescription opiate use Z79.899 Active 142727341 Problem 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 Active 41434210 Problem Benign prostatic hyperplasia, presence of lower urinary tract symptoms unspecified, unspecified morphology N40.0 Active 645016682 Problem Moderate episode of recurrent major depressive disorder F33.1 Active 131994445 Problem Urge incontinence N39.41 Active 850926167 Problem Low back pain M54.5 Active 394848183 Problem Psoriasis L40.9 Active 0597097 Problem Anxiety F41.9 Active 81449662 Problem Hyperlipidemia, unspecified E78.5 Active 55555928 Problem Esophageal stricture K22.2 Active 39507913 Problem Cervicalgia M54.2 Active 9699968076985 Problem Chronic gout, unspecified cause, unspecified site M1A.9XX0 Active 39140261 Problem Primary insomnia F51.01 Active 816252824 Problem History of weight loss surgery Z98.84 Active 782336316 ALLERGIES No Information SOCIAL HISTORY Never Assessed PLAN OF CARE VITAL SIGNS MEDICATIONS Unknown Medications RESULTS No Results PROCEDURES No Known procedures IMMUNIZATIONS No Known Immunizations MEDICAL (GENERAL) HISTORY Type Description Date Medical History hypertension Medical History sleep apnea-did not tolerate CPAP Medical History oxygen dependent at [facility] Medical History colonic polyps Medical History hyperlipidemia [...]
--- OUTSIDE RECORDS SUMMARY | 2017-04-04 15:23 | XMS REPORT ---
Author Author CHRIS STEVENSON [facility] Address [address] [place] [address] Care Team Providers Care Music Artist Name Role Phone GRAHAMELLIOTT HANNAHANY Unavailable PROBLEMS Type Condition ICD9-CM Code UTH38-GB Code Onset Dates Condition Status SNOMED Code Problem Obstructive sleep apnea syndrome G47.33 Active 63148759 Problem History of diverticulitis Z87.19 Active 051951011757939 Problem Allergic rhinitis, unspecified allergic rhinitis type J30.9 Active 02733631 Problem Erectile dysfunction due to diseases classified elsewhere N52.1 Active 254251954 Problem Essential hypertension I10 Active 12446460 Problem Acute right-sided low back pain with right-sided sciatica M54.41 Active 055684535 Problem Nephrolithiasis N20.0 Active 80616045 Problem Nocturnal hypoxia G47.34 Active 092115526 Problem Chronic prescription opiate use Z79.899 Active 847785245 Problem 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 Active 34539308 Problem Benign prostatic hyperplasia, presence of lower urinary tract symptoms unspecified, unspecified morphology N40.0 Active 165191540 Problem Moderate episode of recurrent major depressive disorder F33.1 Active 388715981 Problem Urge incontinence N39.41 Active 827506302 Problem Low back pain M54.5 Active 513387159 Problem Psoriasis L40.9 Active 0121160 Problem Anxiety F41.9 Active 39421180 Problem Hyperlipidemia, unspecified E78.5 Active 50866293 Problem Esophageal stricture K22.2 Active 51519935 Problem Cervicalgia M54.2 Active 3215906774016 Problem Chronic gout, unspecified cause, unspecified site M1A.9XX0 Active 96633341 Problem Renal cyst, left N28.1 Active 38196491 Problem Primary insomnia F51.01 Active 292097093 Problem History of weight loss surgery Z98.84 Active 806855370 ALLERGIES No Information SOCIAL HISTORY Never Assessed PLAN OF CARE VITAL SIGNS MEDICATIONS Medication Instructions Dosage Frequency Start Date End Date Duration Status Diclofenac Sodium 75 MG TAKE 1 TABLET BY MOUTH TWICE DAILY NEED APPOINTMENT FOR REFILLS 30 Active RESULTS No Results PROCEDURES No Known procedures IMMUNIZATIONS No Known Immunizations MEDICAL (GENERAL) HISTORY Type Description Date Medical History hypertension Medical History sleep apnea-did not tolerate CPAP Medical History oxygen dependent at [facility] Medical History colonic polyps Medical History hyperlipidemia [...]
--- OUTSIDE RECORDS SUMMARY | 2017-04-04 15:24 | XMS REPORT ---
Author Author CHRIS STEVENSON [facility] Address [address] [place] [address] Care Team Providers Care Correctional Program Officer Name Role Phone GRAHAMELLIOTT HANNAHANY Unavailable PROBLEMS Type Condition ICD9-CM Code ADR00-OS Code Onset Dates Condition Status SNOMED Code Problem Obstructive sleep apnea syndrome G47.33 Active 35944821 Problem History of diverticulitis Z87.19 Active 098450970079628 Problem Allergic rhinitis, unspecified allergic rhinitis type J30.9 Active 49098977 Problem Erectile dysfunction due to diseases classified elsewhere N52.1 Active 779906122 Problem Essential hypertension I10 Active 12945931 Problem Acute right-sided low back pain with right-sided sciatica M54.41 Active 296148325 Problem Nephrolithiasis N20.0 Active 17995452 Problem Nocturnal hypoxia G47.34 Active 309081572 Problem Chronic prescription opiate use Z79.899 Active 360002735 Problem 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 Active 55177393 Problem Benign prostatic hyperplasia, presence of lower urinary tract symptoms unspecified, unspecified morphology N40.0 Active 320935217 Problem Moderate episode of recurrent major depressive disorder F33.1 Active 850025274 Problem Urge incontinence N39.41 Active 180197342 Problem Low back pain M54.5 Active 673890831 Problem Psoriasis L40.9 Active 3819633 Problem Anxiety F41.9 Active 65758778 Problem Hyperlipidemia, unspecified E78.5 Active 08980915 Problem Esophageal stricture K22.2 Active 17748568 Problem Cervicalgia M54.2 Active 9862634970572 Problem Chronic gout, unspecified cause, unspecified site M1A.9XX0 Active 19366126 Problem Renal cyst, left N28.1 Active 00788614 Problem Primary insomnia F51.01 Active 677725670 Problem History of weight loss surgery Z98.84 Active 378325544 ALLERGIES No Information SOCIAL HISTORY Never Assessed [...] tolerate CPAP Medical History oxygen dependent at [facility] Medical History colonic polyps Medical History hyperlipidemia [...]
--- OUTSIDE RECORDS SUMMARY | 2017-04-04 15:24 | XMS REPORT ---
Author Author CHRIS STEVENSON [facility] Address [address] [place] [address] Care Team Providers Care Binding Cutter Synthetic Cloth Name Role Phone GRAHAMELLIOTT HANNAHANY Unavailable PROBLEMS Type Condition ICD9-CM Code [id number] Code Onset Dates Condition Status SNOMED Code Problem Obstructive sleep apnea syndrome G47.33 Active 71788414 Problem History of diverticulitis Z87.19 Active 252702978158789 Problem Allergic rhinitis, unspecified allergic rhinitis type J30.9 Active 86151127 Problem Erectile dysfunction due to diseases classified elsewhere N52.1 Active 707926671 Problem Essential hypertension I10 Active 43118863 Problem Acute right-sided low back pain with right-sided sciatica M54.41 Active 400107255 Problem Nephrolithiasis N20.0 Active 83174663 Problem Nocturnal hypoxia G47.34 Active 235312835 Problem Chronic prescription opiate use Z79.899 Active 045828995 Problem 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 Active 26138570 Problem Benign prostatic hyperplasia, presence of lower urinary tract symptoms unspecified, unspecified morphology N40.0 Active 786581537 Problem Moderate episode of recurrent major depressive disorder F33.1 Active 215581641 Problem Urge incontinence N39.41 Active 908431740 Problem Low back pain M54.5 Active 502379142 Problem Psoriasis L40.9 Active 0585705 Problem Anxiety F41.9 Active 82585956 Problem Hyperlipidemia, unspecified E78.5 Active 84434620 Problem Esophageal stricture K22.2 Active 90319946 Problem Cervicalgia M54.2 Active 4618010358750 Problem Chronic gout, unspecified cause, unspecified site M1A.9XX0 Active 78095998 Problem Renal cyst, left N28.1 Active 07744973 Problem Primary insomnia F51.01 Active 014652393 Problem History of weight loss surgery Z98.84 Active 278956552 ALLERGIES No Information SOCIAL HISTORY Never Assessed PLAN OF CARE VITAL SIGNS MEDICATIONS Medication Instructions Dosage Frequency Start Date End Date Duration Status Cyn 2.5 MG Orally Once a day 1 tablet 24h Apr, 90 days Active Omeprazole 20 mg Orally 2 times a day 1 capsule 12h 90 days Active Tizanidine HCl 4 MG Orally 3-4 times daily 1 tablet as needed Apr, Active Trazodone HCl 150 MG Orally Once a day 1 tablet at bedtime 24h 90 days Active Allopurinol 100 mg Orally Once a day 1 tablet 24h 90 days Active Duloxetine HCl 60 MG Orally Once a day 1 capsule 24h Nov, 90 day(s) Active RESULTS No Results PROCEDURES No Known procedures IMMUNIZATIONS No Known Immunizations MEDICAL (GENERAL) HISTORY Type Description Date Medical History hypertension Medical History sleep apnea-did not tolerate CPAP Medical History oxygen dependent at [facility] Medical History colonic polyps [...] colonoscopy ([facility])-polyp removed 10/2009 Surgical History EGD ([facility])-gastritis 10/2009 Surgical History gastric sleeve Surgical History [...]
--- OUTSIDE RECORDS SUMMARY | 2017-04-04 15:25 | XMS REPORT ---
Author Author CHRIS STEVENSON [facility] Address [address] [place] [address] Care Team Providers Care Managing Broker Name Role Phone LIBBY STEVENSONY Unavailable PROBLEMS Type Condition ICD9-CM Code IST65-BH Code Onset Dates Condition Status SNOMED Code Problem Obstructive sleep apnea syndrome G47.33 Active 99586348 Problem History of diverticulitis Z87.19 Active 633358002184071 Problem Allergic rhinitis, unspecified allergic rhinitis type J30.9 Active 20459848 Problem Erectile dysfunction due to diseases classified elsewhere N52.1 Active 814525312 Problem Essential hypertension I10 Active 55960155 Problem Acute right-sided low back pain with right-sided sciatica M54.41 Active 879029085 Problem Nephrolithiasis N20.0 Active 59336264 Problem Nocturnal hypoxia G47.34 Active 672402884 Problem Chronic prescription opiate use Z79.899 Active 851907580 Problem 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 Active 65283238 Problem Benign prostatic hyperplasia, presence of lower urinary tract symptoms unspecified, unspecified morphology N40.0 Active 931906938 Problem Moderate episode of recurrent major depressive disorder F33.1 Active 461260677 Problem Urge incontinence N39.41 Active 333672758 Problem Low back pain M54.5 Active 421732088 Problem Psoriasis L40.9 Active 3913679 Problem Anxiety F41.9 Active 98292498 Problem Hyperlipidemia, unspecified E78.5 Active 06165552 Problem Esophageal stricture K22.2 Active 58314117 Problem Cervicalgia M54.2 Active 6078308392927 Problem Chronic gout, unspecified cause, unspecified site M1A.9XX0 Active 47750244 Problem Primary insomnia F51.01 Active 837923127 Problem History of weight loss surgery Z98.84 Active 637364686 ALLERGIES Unknown Allergies SOCIAL HISTORY No smoking Hx information available PLAN OF CARE VITAL SIGNS MEDICATIONS Medication Instructions Dosage Frequency Start Date End Date Duration Status Fluticasone Propionate 50 MCG/ACT Nasally Once a day 1 spray in each nostril 24h Mar, 30 day(s) Active RESULTS No Results PROCEDURES No Known procedures IMMUNIZATIONS No Known Immunizations
--- NOTE | 2017-04-04 15:40 | Diagnostic Imaging Report ---
EXAMINATION: Three views of the left ankle. INDICATION: Sprained ankle. FINDINGS: There is diffuse soft tissue swelling demonstrated about the ankle, greater along the lateral aspect. There is, however, no demonstration of a distal fibular or tibial fracture. The talar dome is normal in morphology. There is a degenerative subchondral cyst within the medial aspect of the talus. There is no acute process demonstrated within the hindfoot. IMPRESSION: Ankle soft tissue swelling without evidence of malalignment or acute fracture. Dictated by: Dictated on workstation # [id number]
--- OUTSIDE RECORDS SUMMARY | 2017-04-04 15:45 | XMS REPORT | Continuity of Care Document ---
Author Author [facility] of [facility] C[facility] of [facility] Address Unknown Phone Unavailable Allergies Active Description Code Type Severity Reaction Onset Reported/Identified Relationship to Patient Clinical Status Yes ampicillin Drug Allergy 05/24/2008 Yes ampicillin Drug Allergy N/A N/A 05/24/2008 Yes ampicillin [id number] Drug Allergy Mild RASH 04/22/2009 Yes Penicillins [id number] Drug Allergy Mild N/A 07/04/2009 Yes benazepril 20 mg tablet Drug Allergy N/A N/A 09/01/2013 Yes EGGS EGGS Unknown N/A 12/23/2013 Yes sulfacetamide [id number] Drug Allergy Mild "MADE ME FEEL B 03/19/2015 Yes egg [id number] Drug Allergy Unknown N/A 07/19/2015 Medications There is no data. Problems Date Dx Coded Attending Type Code [...] HISTORY OF MALIGNANT NEOPLASM OF OTHER 11/17/2007 SHANNON ZHU APRNIA R 465.9 UPPER RESPIRATORY INFECTION 11/17/2007 SHANNON ZHU APRNIA R V16.49 FAMILY HISTORY OF MALIGNANT NEOPLASM OF OTHER 11/17/2007 BELTRAN DO, JULIET K 465.9 UPPER RESPIRATORY INFECTION 11/17/2007 BELTRAN DO, JULIET K V16.49 FAMILY HISTORY OF MALIGNANT NEOPLASM OF OTHER 11/17/2007 465.9 UPPER RESPIRATORY INFECTION 11/17/2007 V16.49 FAMILY HISTORY OF MALIGNANT NEOPLASM OF OTHER 11/17/2007 SHANNON ZHU APRNIA R 465.9 UPPER RESPIRATORY INFECTION 11/17/2007 SHANNON ZHU APRNIA R V16.49 FAMILY HISTORY OF MALIGNANT NEOPLASM [...] HISTORY OF MALIGNANT NEOPLASM OF OTHER 11/17/2007 SHANNON ZHU APRNIA R 465.9 UPPER RESPIRATORY INFECTION 11/17/2007 SHANNON ZHU APRNIA R V16.49 FAMILY HISTORY OF MALIGNANT NEOPLASM [...] 465.9 UPPER RESPIRATORY INFECTION 11/17/2007 BELTRAN DO, JUILET K V16.49 FAMILY HISTORY OF MALIGNANT NEOPLASM [...] OF MALIGNANT NEOPLASM OF OTHER 11/17/2007 AUDRA PHLEBOTOMY TECHNOLOGIST, RAHUL R 465.9 UPPER RESPIRATORY INFECTION 11/17/2007 ZHU PHLEBOTOMY TECHNOLOGIST, RAHUL R V16.49 FAMILY HISTORY OF MALIGNANT [...] HISTORY OF MALIGNANT NEOPLASM OF OTHER 11/17/2007 MARIBEL BELTRAN DOA K 465.9 UPPER RESPIRATORY INFECTION 11/17/2007 JULIET [...] HISTORY OF MALIGNANT NEOPLASM OF OTHER 11/17/2007 MARIBEL BELTRAN DOA K 465.9 UPPER RESPIRATORY INFECTION 11/17/2007 JULIET BELTRAN DO K V16.49 FAMILY HISTORY OF MALIGNANT NEOPLASM OF OTHER 05/04/2008 JULIET BELTRAN DO K NODX NO DIAGNOSIS 05/04/2008 NODX NO DIAGNOSIS 05/04/2008 NODX NO DIAGNOSIS 05/04/2008 BRIDGETT AGUILERA APRN NODX NO DIAGNOSIS 05/04/2008 NODX NO DIAGNOSIS 05/04/2008 NODX NO DIAGNOSIS 05/04/2008 NODX NO DIAGNOSIS 05/04/2008 NODX NO DIAGNOSIS 05/04/2008 ZHU PHLEBOTOMY TECHNOLOGIST, RAHUL R NODX NO DIAGNOSIS 05/04/2008 BELTRAN DO, JULIET K NODX NO DIAGNOSIS 05/04/2008 NODX NO DIAGNOSIS 05/04/2008 ZHU PHLEBOTOMY TECHNOLOGIST, RAHUL R NODX NO DIAGNOSIS 05/04/2008 BELTRAN DO, JULIET K NODX NO DIAGNOSIS 05/04/2008 NODX NO DIAGNOSIS 05/04/2008 NODX NO DIAGNOSIS 05/04/2008 NODX NO DIAGNOSIS 05/04/2008 BELTRAN DO, JULIET K NODX NO DIAGNOSIS 05/04/2008 ZHU PHLEBOTOMY TECHNOLOGIST, RAHUL R NODX NO DIAGNOSIS 05/04/2008 BELTRAN [...] LUCA DPM, KELLE NODX NO DIAGNOSIS 05/04/2008 ZHU PHLEBOTOMY TECHNOLOGIST, RAHUL R NODX NO DIAGNOSIS 05/04/2008 BELTRAN [...] 401.9 Combined Systolic And Diastolic Elevation 05/24/2008 RAHUL ZHU APRN R 388.7 OTALGIA 05/24/2008 SHANNON ZHU APRNIA R 401.9 Combined Systolic And Diastolic Elevation 05/24/2008 BELTRAN DO, JULIET K 388.7 OTALGIA 05/24/2008 BELTRAN DO, JULIET K 401.9 Combined Systolic And Diastolic Elevation 05/24/2008 388.7 OTALGIA 05/24/2008 401.9 Combined Systolic And Diastolic Elevation 05/24/2008 SHANNON ZHU APRNIA R 388.7 OTALGIA 05/24/2008 SHANNON ZHU APRNIA R 401.9 Combined Systolic And Diastolic Elevation [...] AUDRA DIAZ RAHUL R 388.7 OTALGIA 05/24/2008 ALFRED ZHU APRNRICIA R 401.9 Combined Systolic And Diastolic Elevation 05/24/2008 BELTRAN DO, JULIET K 388.7 OTALGIA 05/24/2008 BELTRAN DO, JULIET K 401.9 Combined Systolic And Diastolic Elevation 05/24/2008 BELTRAN DO, JULIET K 388.7 OTALGIA 05/24/2008 BELTRAN DO, JULIET K 401.9 Combined Systolic And Diastolic Elevation 05/24/2008 BETLRAN DO, JULIET K 388.7 OTALGIA 05/24/2008 BELTRAN [...] STEVENSON MD N 388.7 OTALGIA 05/24/2008 GRAHAM MD, CHRIS N 401.9 COMBINED SYSTOLIC AND DIASTOLIC [...] COMBINED SYSTOLIC AND DIASTOLIC ELEVATION 05/24/2008 ZHU PHLEBOTOMY TECHNOLOGIST, RAHUL R 388.7 OTALGIA 05/24/2008 ZHU PHLEBOTOMY TECHNOLOGIST, RAHUL R 401.9 COMBINED SYSTOLIC AND DIASTOLIC [...] 05/25/2008 401.1 ESSENTIAL HYPERTENSION BENIGN 05/25/2008 AUDRA PHLEBOTOMY TECHNOLOGIST, RAHUL R 401.1 ESSENTIAL HYPERTENSION BENIGN 05/25/2008 BELTRAN DO, JULIET K 401.1 ESSENTIAL HYPERTENSION BENIGN 05/25/2008 401.1 ESSENTIAL HYPERTENSION BENIGN 05/25/2008 ZHU SHANNON DIAZIA R 401.1 ESSENTIAL HYPERTENSION BENIGN 05/25/2008 BELTRAN DO, JULIET K 401.1 ESSENTIAL HYPERTENSION BENIGN 05/25/2008 401.1 ESSENTIAL HYPERTENSION BENIGN 05/25/2008 401.1 ESSENTIAL HYPERTENSION BENIGN 05/25/2008 401.1 ESSENTIAL HYPERTENSION BENIGN 05/25/2008 BELTRAN DO, JULIET K 401.1 ESSENTIAL HYPERTENSION BENIGN 05/25/2008 AUDRA PHLEBOTOMY TECHNOLOGIST, RAHUL R 401.1 ESSENTIAL HYPERTENSION BENIGN 05/25/2008 [...] 278.01 OBESITY MORBID 06/26/2008 CHRIS STEVENSON MD 278.01 OBESITY MORBID 06/26/2008 BELTRAN DO, JULIET [...] STEVENSON MD N 278.01 OBESITY MORBID 06/26/2008 CHRIS STEVENSON [...] DPM, KELLE 278.01 OBESITY MORBID 06/26/2008 AUDRA PHLEBOTOMY TECHNOLOGISTRAHUL R 278.01 OBESITY MORBID 06/26/2008 BELTRAN DO, JULIET K 278.01 OBESITY MORBID 06/26/2008 BELTRAN DO, JULIET K 278.01 OBESITY MORBID 06/26/2008 BELTRAN DO, JULIET K 278.01 OBESITY MORBID 06/26/2008 BELTRAN DO, JULIET K 278.01 OBESITY MORBID 06/26/2008 BELTRAN DO, JULIET K 278.01 OBESITY MORBID 06/26/2008 BELTRAN DO, JULIET K 278.01 OBESITY MORBID 06/26/2008 GRAHAM ESTRELLA, CHRIS N 278.01 OBESITY MORBID 06/26/2008 GRAHAM ESTRELLA, CHRIS N 278.01 OBESITY MORBID 06/26/2008 BELTRAN DO, JULIET K 278.01 OBESITY MORBID 06/26/2008 BELTRAN DO, JULIET K 278.01 OBESITY MORBID 06/26/2008 GRAHAM ESTRELLA, CHRIS N 278.01 OBESITY MORBID 06/26/2008 GRAHAM ESTRELLA, CHRIS [...] 07/11/2008 716.90 ARTHROPATHY 07/11/2008 716.90 ARTHROPATHY 07/11/2008 RAHUL ZHU APRN R 716.90 ARTHROPATHY 07/11/2008 BELTRAN DO, JULIET K 716.90 ARTHROPATHY 07/11/2008 716.90 ARTHROPATHY 07/11/2008 SHANNON ZHU APRNIA R 716.90 ARTHROPATHY 07/11/2008 BELTRAN DO, JULIET K 716.90 ARTHROPATHY 07/11/2008 716.90 ARTHROPATHY 07/11/2008 716.90 ARTHROPATHY 07/11/2008 716.90 ARTHROPATHY 07/11/2008 BELTRAN DO, JULIET K 716.90 ARTHROPATHY 07/11/2008 RAHUL ZHU APRN R 716.90 ARTHROPATHY 07/11/2008 BELTRAN DO, JULIET K 716.90 ARTHROPATHY 07/11/2008 BELTRAN DO, JULIET K 716.90 ARTHROPATHY 07/11/2008 BELTRAN DO, JULIET K 716.90 ARTHROPATHY 07/11/2008 BELTRAN DO, JULIET K 716.90 ARTHROPATHY 07/11/2008 BELTRAN DO, JULIET K 716.90 ARTHROPATHY 07/11/2008 BELTRAN DO, JULIET K 716.90 ARTHROPATHY 07/11/2008 CHRIS STEVENSON MD 716.90 [...] DO, JULIET K 716.90 ARTHROPATHY 07/11/2008 LUCA DPAdy, KELLE 716.90 ARTHROPATHY 07/11/2008 RAHUL ZHU APRN [...] PAIN UNSPECIFIED SITE 08/11/2008 GRAHAM ESTRELLA, CHRIS N 789.00 ABDOMINAL PAIN UNSPECIFIED SITE 08/11/2008 BELTRAN [...] N 789.00 ABDOMINAL PAIN UNSPECIFIED SITE 08/11/2008 BELTRAN [...] PAIN UNSPECIFIED SITE 08/11/2008 GRAHAM ESTRELLA, CHRIS N 789.00 ABDOMINAL PAIN UNSPECIFIED SITE 08/11/2008 CHRIS STEVENSON MD N 789.00 ABDOMINAL PAIN UNSPECIFIED SITE 08/11/2008 BELTRAN [...] K 789.00 ABDOMINAL PAIN UNSPECIFIED SITE 08/11/2008 MARIBEL BELTRAN DOA K 789.00 ABDOMINAL PAIN UNSPECIFIED SITE 08/11/2008 CHRIS STEVENSON MD N 789.00 ABDOMINAL PAIN UNSPECIFIED SITE 08/11/2008 CHRIS STEVENSON MD N 789.00 ABDOMINAL PAIN UNSPECIFIED SITE 08/11/2008 MARIBEL BELTRAN DOA K 789.00 ABDOMINAL PAIN UNSPECIFIED SITE 08/11/2008 CHRIS STEVENSON MD N 789.00 ABDOMINAL PAIN UNSPECIFIED SITE 08/11/2008 MARIBEL BELTRAN DOA K 789.00 ABDOMINAL PAIN UNSPECIFIED SITE 04/18/2009 MARIBEL BELTRAN DOA K 724.2 lower back pain 04/18/2009 JULIET [...] lower back pain 04/18/2009 RAHUL ZHU APRN R 729.2 RADICULOPATHY 04/18/2009 MARIBEL BELTRAN DOA K 724.2 lower back pain 04/18/2009 BELTRAN DO, JULIET K 729.2 RADICULOPATHY 04/18/2009 724.2 lower back pain 04/18/2009 729.2 RADICULOPATHY 04/18/2009 ZHU PHLEBOTOMY TECHNOLOGISTSHANNONIA R 724.2 lower back pain 04/18/2009 ZHU PHLEBOTOMY TECHNOLOGIST, RAHUL R 729.2 RADICULOPATHY 04/18/2009 BELTRAN DO, JULIET K 724.2 lower back pain 04/18/2009 BELTRAN DO, JULIET K 729.2 RADICULOPATHY 04/18/2009 724.2 lower back pain 04/18/2009 729.2 RADICULOPATHY 04/18/2009 724.2 lower back pain 04/18/2009 729.2 RADICULOPATHY 04/18/2009 724.2 lower back pain 04/18/2009 729.2 RADICULOPATHY 04/18/2009 BELTRAN DO, JULIET K 724.2 lower back pain 04/18/2009 BELTRAN DO, JULIET K 729.2 RADICULOPATHY 04/18/2009 ZHU PHLEBOTOMY TECHNOLOGISTALFREDRAHUL R 724.2 lower back pain 04/18/2009 ZHU PHLEBOTOMY TECHNOLOGIST, RAHUL R 729.2 RADICULOPATHY 04/18/2009 BELTRAN DO, [...] CHRIS N 724.2 lower back pain 04/18/2009 GRAHAM ESTRELLA, CHRIS N 729.2 RADICULOPATHY 04/18/2009 BELTRAN DO, JULIET [...] 04/18/2009 CHRIS STEVENSON MD 729.2 RADICULOPATHY 04/18/2009 BELTRAN DO, JULIET K [...] LUCA DPM, KELLE 729.2 RADICULOPATHY 04/18/2009 ZHU PHLEBOTOMY TECHNOLOGIST, RAHUL R 724.2 lower back pain 04/18/2009 ZHU PHLEBOTOMY TECHNOLOGIST, RAHUL R 729.2 RADICULOPATHY 04/18/2009 BELTRAN DO, [...] CHRIS Steiner 724.2 lower back pain 04/18/2009 GRAHAM ESTRELLA, CHRIS Steiner 729.2 RADICULOPATHY 04/18/2009 CHRIS STEVENSON MD 724.2 lower back pain 04/18/2009 CHRIS STEVENSON MD N 729.2 RADICULOPATHY 04/18/2009 BELTRAN MARIBEL WATTERSA K 724.2 lower back pain 04/18/2009 MARIBEL BELTRAN DOA K 729.2 RADICULOPATHY 04/18/2009 BELTRAN DO JULIET K 724.2 lower back pain 04/18/2009 BELTRAN MARIBEL WATTERSA K 729.2 RADICULOPATHY 04/18/2009 CHRIS STEVENSON MD N 724.2 lower back pain 04/18/2009 CHRIS STEVENSON MD N 729.2 RADICULOPATHY 04/18/2009 CHRIS STEVENSON MD N 724.2 lower back pain 04/18/2009 CHRIS STEVENSON MD N 729.2 RADICULOPATHY 04/18/2009 JULIET BELTRAN DO K 724.2 lower back pain 04/18/2009 MARIBEL BELTRAN DOA K 729.2 RADICULOPATHY 04/18/2009 CHRIS STEVENSON MD N 724.2 lower back pain 04/18/2009 CHRIS STEVENSON MD N 729.2 RADICULOPATHY 04/18/2009 JULIET BELTRAN DO K 724.2 lower back pain 04/18/2009 JULIET BELTRAN DO K 729.2 RADICULOPATHY 05/01/2009 JULIET BELTRAN DO [...] KELLE 836.0 Acute Meniscal Tear Medial 05/01/2009 RAHUL [...] 789.00 Abdominal Pain Unspecified Site 07/16/2009 AUDRA PHLEBOTOMY TECHNOLOGIST, RAHUL R 789.00 Abdominal Pain Unspecified Site [...] N 789.00 Abdominal Pain Unspecified Site 07/16/2009 BELTRAN DO, JULIET K 789.00 Abdominal Pain Unspecified Site 07/16/2009 BELTRAN DO, JULIET K 789.00 Abdominal Pain Unspecified Site 07/16/2009 CHRIS STEVENSON MD N 789.00 Abdominal Pain Unspecified Site 07/16/2009 CHRIS STEVENSON MD N 789.00 Abdominal Pain Unspecified Site 07/16/2009 BELTRAN [...] Hypotension 08/21/2009 458.0 Orthostatic Hypotension 08/21/2009 AUDRA PHLEBOTOMY TECHNOLOGIST, RAHUL R 458.0 Orthostatic Hypotension 08/21/2009 BELTRAN DO, JULIET K 458.0 Orthostatic Hypotension 08/21/2009 458.0 Orthostatic Hypotension 08/21/2009 AUDRA PHLEBOTOMY TECHNOLOGIST, RAHUL R 458.0 Orthostatic Hypotension 08/21/2009 BELTRAN DO, JULIET K 458.0 Orthostatic Hypotension 08/21/2009 458.0 Orthostatic Hypotension 08/21/2009 458.0 Orthostatic Hypotension 08/21/2009 458.0 Orthostatic Hypotension 08/21/2009 BELTRAN DO, JULIET K 458.0 Orthostatic Hypotension 08/21/2009 AUDRA DIAZ, RAHUL R 458.0 Orthostatic Hypotension 08/21/2009 BELTRAN DO, JULIET K 458.0 Orthostatic Hypotension 08/21/2009 BELTRAN DO, JULIET K 458.0 Orthostatic Hypotension 08/21/2009 BELTRAN DO, JULIET K 458.0 Orthostatic Hypotension 08/21/2009 BELTRAN DO, JULIET K 458.0 Orthostatic Hypotension 08/21/2009 BELTRAN DO, JULIET K 458.0 Orthostatic Hypotension 08/21/2009 BELTRAN DO, JULIET K 458.0 Orthostatic Hypotension 08/21/2009 GRAHAM ESTRELLA, CHRIS Steiner 458.0 Orthostatic Hypotension 08/21/2009 BELTRAN DO, JULIET K 458.0 Orthostatic Hypotension 08/21/2009 BELTRAN DO, JULIET K 458.0 Orthostatic Hypotension 08/21/2009 BELTRAN DO, JULIET K 458.0 Orthostatic Hypotension 08/21/2009 BELTRAN DO, JLUIET K 458.0 Orthostatic Hypotension 08/21/2009 BELTRAN DO, [...] DPM, KELLE 458.0 Orthostatic Hypotension 08/21/2009 AUDRA PHLEBOTOMY TECHNOLOGIST, RAHUL R 458.0 Orthostatic Hypotension 08/21/2009 BELTRAN [...] Muscle Weakness 08/28/2009 781.0 Tremor 08/28/2009 AUDRA PHLEBOTOMY TECHNOLOGISTALFREDRAHUL R 728.87 Muscle Weakness 08/28/2009 AUDRA ZAMORANALFREDRAHUL R 781.0 Tremor 08/28/2009 BELTRAN DO, JULIET K 728.87 Muscle Weakness 08/28/2009 BELTRAN DO, JULIET K 781.0 Tremor 08/28/2009 728.87 Muscle Weakness 08/28/2009 781.0 Tremor 08/28/2009 AUDRA PHLEBOTOMY TECHNOLOGIST, RAHUL R 728.87 Muscle Weakness 08/28/2009 AUDRA PHLEBOTOMY TECHNOLOGIST, RAHUL R 781.0 Tremor 08/28/2009 BELTRAN DO, JULIET K 728.87 Muscle Weakness 08/28/2009 BELTRAN DO, JULIET K 781.0 Tremor 08/28/2009 728.87 Muscle Weakness 08/28/2009 781.0 Tremor 08/28/2009 728.87 Muscle Weakness 08/28/2009 781.0 Tremor 08/28/2009 728.87 Muscle Weakness 08/28/2009 781.0 Tremor 08/28/2009 BELTRAN DO, JULIET K 728.87 Muscle Weakness 08/28/2009 BELTRAN DO, JULIET K 781.0 Tremor 08/28/2009 ZHU PHLEBOTOMY TECHNOLOGIST, RAHUL R 728.87 Muscle Weakness 08/28/2009 ZHU PHLEBOTOMY TECHNOLOGIST, RAHUL R 781.0 Tremor 08/28/2009 BELTRAN DO, [...] K 728.87 Muscle Weakness 08/28/2009 BELTRAN DO, JULEIT K 781.0 Tremor 08/28/2009 BELTRAN DO, JULIET [...] LUCA DPM, KELLE 781.0 Tremor 08/28/2009 ZHU PHLEBOTOMY TECHNOLOGIST, RAHUL R 728.87 Muscle Weakness 08/28/2009 ZHU PHLEBOTOMY TECHNOLOGIST, RAHUL R 781.0 Tremor 08/28/2009 BELTRAN DO, JULIET K 728.87 Muscle Weakness 08/28/2009 BELTRAN DO, JULIET K 781.0 Tremor 08/28/2009 BETLRAN DO, JULIET K 728.87 Muscle Weakness 08/28/2009 [...] JULIET K 728.87 Muscle Weakness 08/28/2009 BELTRAN DO JULIET K 781.0 Tremor 08/28/2009 CHRIS STEVENSON MD N 728.87 Muscle Weakness 08/28/2009 CHRIS STEVENSON MD N 781.0 Tremor 08/28/2009 CHRIS STEVENSON MD N 728.87 Muscle Weakness 08/28/2009 CHRIS STEVENSON MD N 781.0 Tremor 08/28/2009 BELTRAN , JULIET K 728.87 Muscle Weakness 08/28/2009 BELTRAN DO, JULIET K 781.0 Tremor 08/28/2009 CHRIS STEVENSON MD N 728.87 Muscle Weakness 08/28/2009 CHRIS STEVENSON MD N 781.0 Tremor 08/28/2009 BELTRAN DO JULIET K 728.87 Muscle Weakness 08/28/2009 BELTRAN [...] 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 10/03/2009 AUDRA DIAZ, RAHUL R 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 10/03/2009 BELTRAN DO, JULIET K 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 10/03/2009 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 10/03/2009 SHANNON ZHU APRNIA R 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 [...] OF CERVICAL INTERVERTEBRAL DISC 10/03/2009 BELTRAN DO, JULEIT K 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 [...] RAHUL ZHU APRN R 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 10/22/2009 SHANNON ZHU APRNIA R 792.1 Change In The Stool Color 10/22/2009 BELTRAN DO, JULIET K 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 10/22/2009 BELTRAN DO, JULIET K 792.1 Change In The Stool Color 10/22/2009 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 10/22/2009 792.1 Change In The Stool Color 10/22/2009 RAHUL ZHU APRN R 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 10/22/2009 SHANNON ZHU APRNIA R 792.1 Change In The Stool Color 10/22/2009 BELTRAN DO, JULIET K 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 10/22/2009 BELRTAN DO, JULIET K 792.1 Change In The [...] SHANNON ZHU APRNIA R 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 10/22/2009 AUDRA PHLEBOTOMY TECHNOLOGIST, RAHUL R 792.1 Change In The Stool Color [...] Change In The Stool Color 10/22/2009 DEVIN DOMARIBELA K 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 10/22/2009 BELTRAN DO JULIET [...] APRN 783.21 recent weight loss (___ lbs) [reported] 11/02/2009 783.21 Recent Weight Loss (___ Lbs) [reported] 11/02/2009 783.21 Recent Weight Loss (___ Lbs) [reported] 11/02/2009 783.21 Recent Weight Loss (___ Lbs) [reported] 11/02/2009 783.21 Recent Weight Loss (___ Lbs) [reported] 11/02/2009 RAHUL ZHU APRN 783.21 Recent Weight Loss (___ Lbs) [reported] 11/02/2009 JULIET BELTRAN DO K 783.21 Recent Weight Loss (___ Lbs) [reported] 11/02/2009 783.21 Recent Weight Loss (___ Lbs) [reported] 11/02/2009 RAHUL ZHU APRN 783.21 Recent Weight Loss (___ Lbs) [reported] 11/02/2009 JULIET BELTRAN DO K 783.21 Recent Weight Loss (___ Lbs) [reported] 11/02/2009 783.21 Recent Weight Loss (___ Lbs) [reported] 11/02/2009 783.21 Recent Weight Loss (___ Lbs) [reported] 11/02/2009 783.21 Recent Weight Loss (___ Lbs) [reported] 11/02/2009 MARIBEL BELTRAN DOA K 783.21 Recent Weight Loss (___ Lbs) [reported] 11/02/2009 RAHUL ZHU APRN 783.21 Recent Weight Loss (___ Lbs) [reported] 11/02/2009 MARIBEL BELTRAN DOA K 783.21 Recent Weight Loss (___ Lbs) [reported] 11/02/2009 MARIBEL BELTRAN DOA K 783.21 Recent Weight Loss (___ Lbs) [reported] 11/02/2009 BELTRAN DO JULIET K 783.21 Recent Weight Loss (___ Lbs) [reported] 11/02/2009 BELTRAN DO JULIET K 783.21 Recent Weight Loss (___ Lbs) [reported] 11/02/2009 BELTRAN DO, JULIET K 783.21 Recent Weight Loss (___ [...] Weight Loss (___ Lbs) [reported] 11/02/2009 BELTRAN MARIBEL WATTERSA K 783.21 Recent Weight Loss (___ Lbs) [reported] 11/02/2009 CHRIS STEVENSON MD N 783.21 Recent Weight Loss (___ Lbs) [reported] 11/02/2009 CHRIS STEVENSON MD 783.21 Recent Weight Loss (___ Lbs) [reported] 11/02/2009 MARIBEL BELTRAN DOA K 783.21 Recent Weight Loss (___ Lbs) [reported] 11/02/2009 MARIBEL BELTRAN DOA K 783.21 Recent Weight Loss (___ Lbs) [reported] 11/02/2009 BELTRAN MARIBEL WATTERSA K 783.21 Recent Weight Loss (___ Lbs) [...] APRN 783.21 Recent Weight Loss (___ Lbs) [reported] 11/02/2009 MARIBEL BELTRAN DOA K 783.21 Recent Weight Loss (___ Lbs) [reported] 11/02/2009 BELTRAN DO JULIET K 783.21 Recent Weight Loss (___ Lbs) [reported] 11/02/2009 BELTRAN MARIBEL WATTERSA K 783.21 Recent Weight Loss (___ Lbs) [reported] 11/02/2009 JULIET BELTRAN DO 783.21 Recent Weight Loss (___ Lbs) [reported] 11/02/2009 JULIET BELTRAN DO 783.21 Recent Weight Loss (___ Lbs) [reported] 11/02/2009 JULIET BELTRAN DO 783.21 Recent Weight Loss (___ Lbs) [reported] 11/02/2009 CHRIS STEVENSON MD 783.21 Recent Weight Loss (___ Lbs) [reported] 11/02/2009 CHRIS STEVESNON MD 783.21 Recent Weight Loss (___ Lbs) [...] JULIET K 780.79 FATIGUE 03/11/2010 BELTRAN DO, JLUIET K 780.79 FATIGUE 03/11/2010 BELTRAN DO, JULIET [...] JULIET K 780.79 FATIGUE 03/11/2010 BELTRAN DO, JULITE K 780.79 FATIGUE 03/11/2010 LUCA DPM, KELLE 780.79 FATIGUE 03/11/2010 RAHUL ZHU APRN 780.79 FATIGUE 03/11/2010 BELTRAN DO, JULIET K 780.79 FATIGUE 03/11/2010 BELTRAN DO, JLUIET K 780.79 FATIGUE 03/11/2010 EBLTRAN DO, JULIET K 780.79 FATIGUE 03/11/2010 BELTRAN [...] JULIET K 780.79 FATIGUE 06/07/2010 BELTRAN DOJULIET K 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's Disease 06/07/2010 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's Disease [...] STEVENSON MD N 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's Disease 06/07/2010 DEVIN DO JULIET K 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's Disease 06/07/2010 BELTRAN DO JULIET K 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's Disease 06/07/2010 CHRIS STEEVNSON MD N 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's Disease 06/07/2010 CHRIS STEVENSON MD N 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's Disease 06/07/2010 DEVIN WATTERS JULIET K 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's Disease 06/07/2010 CHRIS STEVENSON MD N 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's Disease 06/07/2010 DEVIN WATTERS JULIET K 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's Disease 10/16/2010 DEVIN DO, JULIET K 272.1 HYPERTRIGLYCERIDEMIA 10/16/2010 DEVIN DO JULIET K 274.9 GOUT 10/16/2010 272.1 HYPERTRIGLYCERIDEMIA 10/16/2010 274.9 GOUT 10/16/2010 272.1 HYPERTRIGLYCERIDEMIA 10/16/2010 274.9 GOUT 10/16/2010 WILLY DIAZ BRIDGETT S 272.1 HYPERTRIGLYCERIDEMIA 10/16/2010 WILLY DIAZ BRIDGETT [...] DO JULIET K 272.1 HYPERTRIGLYCERIDEMIA 10/16/2010 BELTRAN DO, JULIET K 274.9 GOUT 10/16/2010 272.1 HYPERTRIGLYCERIDEMIA 10/16/2010 274.9 GOUT 10/16/2010 272.1 HYPERTRIGLYCERIDEMIA 10/16/2010 274.9 GOUT 10/16/2010 272.1 HYPERTRIGLYCERIDEMIA 10/16/2010 274.9 GOUT 10/16/2010 BELTRAN DO, JULIET K 272.1 HYPERTRIGLYCERIDEMIA 10/16/2010 BELTRAN DO, JULIET K 274.9 GOUT 10/16/2010 ZHU PHLEBOTOMY TECHNOLOGIST, RAHUL R 272.1 HYPERTRIGLYCERIDEMIA 10/16/2010 ZHU PHLEBOTOMY TECHNOLOGIST, RAHUL R 274.9 GOUT 10/16/2010 BELTRAN DO, [...] JULIET K 272.1 HYPERTRIGLYCERIDEMIA 10/16/2010 BELTRAN DO, JULEIT K 274.9 GOUT 10/16/2010 BELTRAN DO, JULIET [...] JULIET K 274.9 GOUT 10/16/2010 BELTRAN DO, JULEIT K 272.1 HYPERTRIGLYCERIDEMIA 10/16/2010 BELTRAN DO, JULIET K 274.9 GOUT 10/16/2010 BELTRAN DO, JULIET K 272.1 HYPERTRIGLYCERIDEMIA 10/16/2010 BELTRAN DO, JULIET K 274.9 GOUT 10/16/2010 LUCA DPM, KELLE 272.1 HYPERTRIGLYCERIDEMIA 10/16/2010 LUCA DPM, KELLE 274.9 GOUT 10/16/2010 ZHU PHLEBOTOMY TECHNOLOGIST, RAHUL R 272.1 HYPERTRIGLYCERIDEMIA 10/16/2010 ZHU PHLEBOTOMY TECHNOLOGIST, RAHUL R 274.9 GOUT 10/16/2010 BELTRAN DO, [...] DO, JULIET K 274.9 GOUT 10/16/2010 GRAHAM MD, CHRIS N 272.1 HYPERTRIGLYCERIDEMIA 10/16/2010 GRAHAM ESTRELLA, CHRIS N 274.9 GOUT 10/16/2010 GRAHAM ESTRELLA, CHRIS N 272.1 HYPERTRIGLYCERIDEMIA 10/16/2010 GRAHAM ESTRELLA, CHRIS N 274.9 GOUT 10/16/2010 BELTRAN DO, JULIET K 272.1 HYPERTRIGLYCERIDEMIA 10/16/2010 BELTRAN DO, JULIET K 274.9 GOUT 10/16/2010 BELTRAN DO, JULIET K 272.1 HYPERTRIGLYCERIDEMIA 10/16/2010 BELTRAN DO, JULIET K 274.9 GOUT 10/16/2010 GRAHAM ESTRELLA, CHRIS N 272.1 HYPERTRIGLYCERIDEMIA 10/16/2010 GRAHAM ESTRELLA, CHRIS N 274.9 GOUT 10/16/2010 GRAHAM ESTRELLA, CHRIS N 272.1 HYPERTRIGLYCERIDEMIA 10/16/2010 GRAHAM ESTRELLA, CHRIS N 274.9 GOUT 10/16/2010 BELTRAN DO, JULEIT K 272.1 HYPERTRIGLYCERIDEMIA 10/16/2010 BELTRAN DO, JULIET K 274.9 GOUT 10/16/2010 CHRIS STEVENSON MD N 272.1 HYPERTRIGLYCERIDEMIA 10/16/2010 GRAHAM ESTRELLA CHRIS N 274.9 GOUT 10/16/2010 BELTRAN DO, [...] pain in the left knee 12/11/2010 BELTRAN DO JULIET K 719.46 joint pain in the [...] joint pain in the left knee 12/11/2010 LUCA DPMKELLE 719.46 joint pain in the left knee 12/11/2010 AUDRA PHLEBOTOMY TECHNOLOGISTRAHUL R 719.46 joint pain in the left [...] the left knee 12/11/2010 JULIET BELTRAN DO K 719.46 joint pain in the left knee 12/11/2010 CHRIS STEVENSON MD 719.46 joint pain in the left knee 12/11/2010 CHRIS STEVENSON MD 719.46 joint pain in the left knee 12/11/2010 JULIET BELTRAN DO K 719.46 joint pain in the left knee 12/11/2010 JULIET BELTRAN DO K 719.46 joint pain in the left knee 12/11/2010 CHRIS STEVENSON MD N 719.46 joint pain in the left knee 12/11/2010 CHRIS STEVENSON MD 719.46 joint pain in the left knee 12/11/2010 JULIET BELTRAN DO K 719.46 joint pain in the left knee 12/11/2010 CHRIS STEVENSON MD N 719.46 joint pain in the left knee 12/11/2010 JULIET BELTRAN DO K 719.46 joint pain in the left knee 01/02/2011 JULIET BELTRAN DO K 733.92 CHONDROMALACIA 01/02/2011 733.92 CHONDROMALACIA 01/02/2011 733.92 CHONDROMALACIA 01/02/2011 BRIDGETT AGUILERA APRN 733.92 CHONDROMALACIA 01/02/2011 733.92 CHONDROMALACIA 01/02/2011 733.92 CHONDROMALACIA 01/02/2011 733.92 CHONDROMALACIA 01/02/2011 733.92 CHONDROMALACIA 01/02/2011 RAHUL ZHU APRN R 733.92 CHONDROMALACIA 01/02/2011 BELTRAN JULIET WATTERS K 733.92 CHONDROMALACIA 01/02/2011 733.92 CHONDROMALACIA 01/02/2011 [...] 01/02/2011 CHRIS STEVENSON MD 733.92 CHONDROMALACIA 01/02/2011 CHRIS STEVENSON [...] 01/02/2011 CHRIS STEVENSON MD 733.92 CHONDROMALACIA 01/02/2011 CHRIS STEVENSON MD 733.92 CHONDROMALACIA 01/02/2011 BELTRAN DO, JULIET K 733.92 CHONDROMALACIA 01/02/2011 BELTRAN DO, JULIET K 733.92 CHONDROMALACIA 01/02/2011 CHRIS STEVENSON MD 733.92 CHONDROMALACIA 01/02/2011 CHRIS STEVENSON [...] NOCTURIA 02/10/2011 799.81 DECREASED LIBIDO 02/10/2011 WILLY PHLEBOTOMY TECHNOLOGIST, BRIDGETT S 788.41 URINARY FREQUENCY 02/10/2011 WILLY PHLEBOTOMY TECHNOLOGIST, BRIDGETT S 788.43 NOCTURIA 02/10/2011 WILLY PHLEBOTOMY TECHNOLOGIST, BRIDGETT S 799.81 DECREASED LIBIDO 02/10/2011 788.41 URINARY FREQUENCY 02/10/2011 788.43 NOCTURIA 02/10/2011 799.81 DECREASED LIBIDO 02/10/2011 788.41 URINARY FREQUENCY 02/10/2011 788.43 NOCTURIA 02/10/2011 799.81 DECREASED LIBIDO 02/10/2011 788.41 URINARY FREQUENCY 02/10/2011 788.43 NOCTURIA 02/10/2011 799.81 DECREASED LIBIDO 02/10/2011 788.41 URINARY FREQUENCY 02/10/2011 788.43 NOCTURIA 02/10/2011 799.81 DECREASED LIBIDO 02/10/2011 SHANNON ZHU APRNIA R 788.41 URINARY FREQUENCY 02/10/2011 ALFRED ZHU [...] DO, JULIET K 799.81 DECREASED LIBIDO 02/10/2011 AUDRA PHLEBOTOMY TECHNOLOGIST, RAHUL R 788.41 URINARY FREQUENCY 02/10/2011 AUDRA PHLEBOTOMY TECHNOLOGIST, RAHUL R 788.43 NOCTURIA 02/10/2011 AUDRA PHLEBOTOMY TECHNOLOGIST, RAHUL R 799.81 DECREASED LIBIDO 02/10/2011 BELTRAN [...] ESTRELLA, CHRIS N 788.41 URINARY FREQUENCY 02/10/2011 RGAHAM ESTRELLA, CHRIS N 788.43 NOCTURIA 02/10/2011 GRAHAM [...] CHRIS STEVENSON MD N 788.43 NOCTURIA 02/10/2011 GRAHAM ESTRELLA, CHRIS [...] DPM, KELLE 799.81 DECREASED LIBIDO 02/10/2011 ZHU PHLEBOTOMY TECHNOLOGIST, RAHUL R 788.41 URINARY FREQUENCY 02/10/2011 ZHU PHLEBOTOMY TECHNOLOGIST, RAHUL R 788.43 NOCTURIA 02/10/2011 ZHU PHLEBOTOMY TECHNOLOGIST, RAHUL R 799.81 DECREASED LIBIDO 02/10/2011 BELTRAN [...] MD N 799.81 DECREASED LIBIDO 02/10/2011 BELTRAN DO JULIET K 788.41 URINARY FREQUENCY 02/10/2011 BELTRAN [...] 790.29 HYPERGLYCEMIA 02/28/2011 790.29 HYPERGLYCEMIA 02/28/2011 WILLY DAIZ BRIDGETT S 790.29 HYPERGLYCEMIA 02/28/2011 790.29 HYPERGLYCEMIA 02/28/2011 790.29 HYPERGLYCEMIA 02/28/2011 790.29 HYPERGLYCEMIA 02/28/2011 790.29 HYPERGLYCEMIA 02/28/2011 ALFRED ZHU APRNRICIA R 790.29 HYPERGLYCEMIA 02/28/2011 BELTRAN DO, JULIET K 790.29 HYPERGLYCEMIA 02/28/2011 790.29 HYPERGLYCEMIA 02/28/2011 ZHU PHLEBOTOMY TECHNOLOGIST, RAHUL R 790.29 HYPERGLYCEMIA 02/28/2011 BELTRAN DO, JULIET K 790.29 HYPERGLYCEMIA 02/28/2011 790.29 HYPERGLYCEMIA 02/28/2011 790.29 HYPERGLYCEMIA 02/28/2011 790.29 HYPERGLYCEMIA 02/28/2011 BELTRAN DO, JULIET K 790.29 HYPERGLYCEMIA 02/28/2011 ZHU PHLEBOTOMY TECHNOLOGIST, RAHUL R 790.29 HYPERGLYCEMIA 02/28/2011 BELTRAN DO, JULIET [...] N 790.29 HYPERGLYCEMIA 02/28/2011 CHRIS STEVENSON MD 790.29 [...] N 790.29 HYPERGLYCEMIA 02/28/2011 CHRIS STEVENSON MD 790.29 HYPERGLYCEMIA 02/28/2011 BELTRAN DO, JULIET K 790.29 HYPERGLYCEMIA 02/28/2011 BELTRAN DO, JULIET K 790.29 HYPERGLYCEMIA 02/28/2011 CHRIS STEVENSON MD 790.29 HYPERGLYCEMIA 02/28/2011 CHRIS STEVENSON MD 790.29 HYPERGLYCEMIA 02/28/2011 BELTRAN DO, JULIET K 790.29 HYPERGLYCEMIA 02/28/2011 CHRIS STEVENSON MD 790.29 HYPERGLYCEMIA 02/28/2011 BELTRAN DO, JULIET K 790.29 HYPERGLYCEMIA 03/05/2011 BELTRAN DO JULIET K V76.44 Prostate [...] K V76.44 Prostate Screening 03/05/2011 BELTRAN DO, JULITE K V76.44 Prostate Screening 03/05/2011 BELTRAN DO, [...] DO, JULIET K V76.44 Prostate Screening 03/05/2011 KELLE DIAZ DPM V76.44 Prostate Screening 03/05/2011 RAHUL ZHU APRN V76.44 Prostate Screening 03/05/2011 BELTRAN DO, JULIET [...] CHRIS STEVENSON MD V76.44 Prostate Screening 03/05/2011 BELRTAN DO, JULIET K V76.44 Prostate Screening 03/05/2011 CHRIS STEVENSON MD V76.44 Prostate Screening 03/05/2011 BELTRAN DO, JULIET K V76.44 Prostate Screening 07/01/2011 BELTRAN DOMARIBELA K 477.0 ALLERGIC RHINITIS DUE TO POLLEN 07/01/2011 BELTRAN DO, JULIET K 564.1 IRRITABLE BOWEL SYNDROME 07/01/2011 BELTRAN DOJULIET K 695.3 ROSACEA 07/01/2011 BELTRAN DOMARIBELA K V77.1 DIABETES SCREENING 07/01/2011 477.0 ALLERGIC RHINITIS DUE TO POLLEN 07/01/2011 564.1 IRRITABLE BOWEL SYNDROME 07/01/2011 695.3 ROSACEA 07/01/2011 V77.1 DIABETES SCREENING 07/01/2011 477.0 ALLERGIC RHINITIS DUE TO POLLEN 07/01/2011 564.1 IRRITABLE BOWEL SYNDROME 07/01/2011 695.3 ROSACEA 07/01/2011 V77.1 DIABETES SCREENING 07/01/2011 BRIDGETT AGUILERA APRN 477.0 ALLERGIC RHINITIS DUE TO POLLEN 07/01/2011 WILLY PHLEBOTOMY TECHNOLOGIST, BRIDGETT S 564.1 IRRITABLE BOWEL SYNDROME 07/01/2011 BRIDGETT AGUILERA APRN S 695.3 ROSACEA 07/01/2011 BRIDGETT AGUILERA APRN [...] APRN R 564.1 IRRITABLE BOWEL SYNDROME 07/01/2011 ALFRED ZHU APRNRICIA R 695.3 ROSACEA 07/01/2011 ALFRED ZHU APRNRICIA R V77.1 DIABETES SCREENING 07/01/2011 BELTRAN DO, [...] 564.1 IRRITABLE BOWEL SYNDROME 07/01/2011 BELTRAN DO, JULITE K 695.3 ROSACEA 07/01/2011 BELTRAN DO, JULIET K V77.1 DIABETES SCREENING 07/01/2011 SHANNON ZHU APRNIA R 477.0 ALLERGIC RHINITIS DUE TO POLLEN 07/01/2011 AUDRA DIAZ RAHUL R 564.1 IRRITABLE BOWEL SYNDROME 07/01/2011 AUDRA PHLEBOTOMY TECHNOLOGIST, RAHUL R 695.3 ROSACEA 07/01/2011 ZHU PHLEBOTOMY TECHNOLOGIST, RAHUL R V77.1 DIABETES SCREENING 07/01/2011 BELTRAN [...] CHRIS N 564.1 IRRITABLE BOWEL SYNDROME 07/01/2011 CHRIS [...] MD 695.3 ROSACEA 07/01/2011 GRAHAM ESTRELLA, CHRIS N V77.1 DIABETES SCREENING 07/01/2011 GRAHAM ESTRELLA, CHRIS N 477.0 ALLERGIC RHINITIS DUE TO POLLEN 07/01/2011 GRAHAM ESTRELLA, CHRIS N 564.1 IRRITABLE BOWEL SYNDROME 07/01/2011 GRAHAM ESTRELLA, CHRIS N 695.3 ROSACEA 07/01/2011 GRAHAM ESTRELLA, CHRIS N V77.1 DIABETES SCREENING 07/01/2011 BELTRAN DO, [...] DPM, KELLE V77.1 DIABETES SCREENING 07/01/2011 ZHU PHLEBOTOMY TECHNOLOGIST, RAHUL R 477.0 ALLERGIC RHINITIS DUE TO POLLEN 07/01/2011 ZHU PHLEBOTOMY TECHNOLOGIST, RAHUL R 564.1 IRRITABLE BOWEL SYNDROME 07/01/2011 ZHU PHLEBOTOMY TECHNOLOGIST, RAHUL R 695.3 ROSACEA 07/01/2011 ZHU PHLEBOTOMY TECHNOLOGIST, RAHUL R V77.1 DIABETES SCREENING 07/01/2011 BELTRAN [...] 09/22/2011 V65.3 COUNSELING- OBESITY (DIET) 09/22/2011 ZHU PHLEBOTOMY TECHNOLOGIST, RAHUL R V65.3 COUNSELING- OBESITY (DIET) 09/22/2011 [...] JULIET K V65.3 COUNSELING- OBESITY (DIET) 09/22/2011 GRAHAM ESTRELLA, CHRIS Steiner V65.3 COUNSELING- OBESITY (DIET) 09/22/2011 BELTRAN DO, [...] DOA K V65.3 COUNSELING- OBESITY (DIET) 09/22/2011 MARIBEL BELTRAN DOA K V65.3 COUNSELING- OBESITY (DIET) 09/22/2011 BELTRAN DO, JULIET K V65.3 COUNSELING- OBESITY (DIET) 09/22/2011 MARIBEL BELTRAN DOA K V65.3 COUNSELING- OBESITY (DIET) 09/22/2011 CHRIS STEVENSON MD V65.3 COUNSELING- OBESITY (DIET) 09/22/2011 CHRIS STEVENSON MD V65.3 COUNSELING- OBESITY (DIET) 09/22/2011 MARIBEL BELTRAN DOA K V65.3 COUNSELING- OBESITY (DIET) 09/22/2011 MARIBEL BELTRAN DOA K V65.3 COUNSELING- OBESITY (DIET) 09/22/2011 CHRIS STEVENSON MD V65.3 COUNSELING- OBESITY (DIET) 09/22/2011 CHRIS STEVENSON MD V65.3 COUNSELING- OBESITY (DIET) 09/22/2011 JULIET BELTRAN DO K V65.3 COUNSELING- OBESITY (DIET) 09/22/2011 CHRIS STEVENSON MD V65.3 COUNSELING- OBESITY (DIET) 09/22/2011 MARIBEL BELTRAN DOA K V65.3 COUNSELING- OBESITY (DIET) 11/13/2011 JULIET [...] JULIET K 786.09 Respiratory Abnormality Other 11/13/2011 ZHU RAHUL DIAZ Roxy 786.09 Respiratory Abnormality Other 11/13/2011 BELTRAN DO, [...] 786.09 Respiratory Abnormality Other 11/13/2011 BELTRAN DO, JUILET K 786.09 Respiratory Abnormality Other 11/13/2011 BELTRAN DO, JULIET K 786.09 Respiratory Abnormality Other 11/13/2011 BELTRAN DO, JULIET K 786.09 Respiratory Abnormality Other 11/13/2011 BELTRAN DO, JULIET K 786.09 Respiratory Abnormality Other 11/13/2011 CHRIS STEVENSON MD N 786.09 Respiratory Abnormality Other 11/13/2011 CHRIS STEVENSON MD N 786.09 Respiratory Abnormality Other 11/13/2011 BELTRAN DO, [...] MD N 786.09 Respiratory Abnormality Other 11/13/2011 BELTRAN DO, [...] CELLULITIS AND ABSCESS OF UNSPECIFIED SITES 01/14/2012 BRIDGETT AGUILERA APRN S 782.3 EDEMA 01/14/2012 682.9 Cellulitis And [...] Unspecified Sites 01/14/2012 782.3 Edema 01/14/2012 BELTRAN DO, JULIET K 682.9 Cellulitis And Abscess Of Unspecified Sites 01/14/2012 BELTRAN DO, JULIET K 782.3 Edema 01/14/2012 ZHU PHLEBOTOMY TECHNOLOGIST, RAHUL R 682.9 Cellulitis And Abscess Of Unspecified Sites 01/14/2012 ZHU PHLEBOTOMY TECHNOLOGIST, RAHUL R 782.3 Edema 01/14/2012 BELTRAN DO, [...] Abscess Of Unspecified Sites 01/14/2012 BELTRAN DO, JLUIET K 782.3 Edema 01/14/2012 BELTRAN DO, JULIET [...] LUCA DPM, KELLE 782.3 Edema 01/14/2012 AUDRA PHLEBOTOMY TECHNOLOGISTSHANNONIA R 682.9 Cellulitis And Abscess Of Unspecified Sites 01/14/2012 AUDRA DIAZSHANNONIA R 782.3 Edema 01/14/2012 BELTRAN DO, JULIET [...] 01/19/2012 V58.69 MEDICATION HIGH RISK 01/19/2012 AUDRA PHLEBOTOMY TECHNOLOGIST, RAHUL R 453.40 DVT - LOWER EXTREMITY [...] 453.40 DVT - LOWER EXTREMITY 01/19/2012 AUDRA DAIZ RAHUL R V58.69 MEDICATION HIGH RISK 01/19/2012 [...] MD N V58.69 MEDICATION HIGH RISK 01/19/2012 BELTRAN DO, [...] KELLE V58.69 MEDICATION HIGH RISK 01/19/2012 ZHU PHLEBOTOMY TECHNOLOGIST, RAHUL R 453.40 DVT - LOWER EXTREMITY 01/19/2012 ZHU PHLEBOTOMY TECHNOLOGIST, RAHUL R V58.69 MEDICATION HIGH RISK 01/19/2012 [...] CHRIS Steiner V58.69 MEDICATION HIGH RISK 01/19/2012 BETLRAN DO, JULIET K 453.40 DVT - LOWER EXTREMITY 01/19/2012 BELTRAN , JULIET K V58.69 MEDICATION HIGH RISK 01/19/2012 BELTRAN , JULIET K 453.40 DVT - LOWER EXTREMITY 01/19/2012 DEVIN WATTERS JULIET K V58.69 MEDICATION HIGH RISK 01/19/2012 CHRIS STEVENSON MD N 453.40 DVT - LOWER EXTREMITY 01/19/2012 GRAHAM ESTRELLA, CHRIS N V58.69 MEDICATION HIGH RISK 01/19/2012 GRAHAM ESTRELLA, CHRIS N 453.40 DVT - LOWER EXTREMITY 01/19/2012 GRAHAM ESTRELLA, CHRIS N V58.69 MEDICATION HIGH RISK 01/19/2012 BELTRAN DO JULIET K 453.40 DVT - LOWER EXTREMITY 01/19/2012 DEVIN WATTERS JULIET K V58.69 MEDICATION HIGH RISK 01/19/2012 GRAHAM ESTRELLA, CHRIS N 453.40 DVT - LOWER EXTREMITY 01/19/2012 CHRIS STEVENSON MD V58.69 MEDICATION HIGH RISK 01/19/2012 MARIBEL BELTRAN DOA K 453.40 DVT - LOWER EXTREMITY 01/19/2012 DEVIN WATTERS JULIET K V58.69 MEDICATION HIGH RISK 04/20/2012 RAHUL ZHU APRN R 782.3 soft tissue swelling (non-joint) [Sx] 04/20/2012 JULIET BELTRAN DO K 782.3 soft tissue swelling (non-joint) [Sx] 04/20/2012 782.3 soft tissue swelling (non-joint) [Sx] 04/20/2012 RAHUL ZHU APRN R 782.3 soft tissue swelling (non-joint) [Sx] 04/20/2012 JULIET BELTRAN DO K 782.3 soft tissue swelling (non-joint) [Sx] 04/20/2012 782.3 SOFT TISSUE SWELLING (NON-JOINT) [SX] 04/20/2012 782.3 SOFT TISSUE SWELLING (NON-JOINT) [SX] 04/20/2012 782.3 SOFT TISSUE SWELLING (NON-JOINT) [SX] 04/20/2012 JULIET BELTRAN DO K 782.3 SOFT TISSUE SWELLING (NON-JOINT) [SX] [...] STEVENSON MD 782.3 SOFT TISSUE SWELLING (NON-JOINT) [SX] 04/20/2012 [...] STEVENSON MD 782.3 SOFT TISSUE SWELLING (NON-JOINT) [SX] 04/20/2012 [...] STEVENSON MD 782.3 SOFT TISSUE SWELLING (NON-JOINT) [SX] 04/20/2012 CHRIS STEVENSON MD 782.3 SOFT TISSUE SWELLING (NON-JOINT) [SX] 04/20/2012 [...] 782.3 SOFT TISSUE SWELLING (NON-JOINT) [SX] 04/20/2012 AUDRA PHLEBOTOMY TECHNOLOGIST, RAHUL R 782.3 SOFT TISSUE SWELLING (NON-JOINT) [...] STEVENSON MD 782.3 SOFT TISSUE SWELLING (NON-JOINT) [SX] 04/20/2012 CHRIS STEVENSON MD 782.3 SOFT TISSUE SWELLING (NON-JOINT) [SX] 04/20/2012 JULIET BELTRAN DO 782.3 SOFT TISSUE SWELLING (NON-JOINT) [SX] 04/20/2012 MARIBEL BELTRAN DOA K 782.3 SOFT TISSUE SWELLING (NON-JOINT) [SX] 04/20/2012 CHRIS STEVENSON MD 782.3 SOFT TISSUE SWELLING (NON-JOINT) [SX] 04/20/2012 CHRIS STEVENSON MD 782.3 SOFT TISSUE SWELLING (NON-JOINT) [SX] 04/20/2012 JULIET BELTRAN DO 782.3 SOFT TISSUE SWELLING (NON-JOINT) [SX] 04/20/2012 CHRIS STEVENSON MD 782.3 SOFT TISSUE SWELLING (NON-JOINT) [SX] 04/20/2012 [...] 789.09 ABDOMINAL PAIN OTHER SPECIFIED SITE 07/28/2012 GRAHAM ESTRELLA, CHRIS N 799.02 HYPOXEMIA 07/28/2012 CHRIS STEVENSON MD N [...] K 729.5 PAIN IN LIMB 09/27/2012 AUDRA PHLEBOTOMY TECHNOLOGIST, RAHUL R 496 COPD 09/27/2012 ZHU PHLEBOTOMY TECHNOLOGIST, RAHUL R 729.5 PAIN IN LIMB 09/27/2012 [...] BELTRAN DO, JULIET K 496 COPD 09/27/2012 BELTRNA DO, JULIET K 729.5 PAIN IN LIMB [...] PAIN IN LIMB 09/27/2012 GRAHAM ESTRELLA, CHRIS Steiner 496 COPD 09/27/2012 GRAHAM ESTRELLA, CHRIS Steiner 729.5 PAIN IN LIMB 09/27/2012 BELTRAN DO, JULIET K 496 COPD 09/27/2012 BELTRAN DO, JULEIT K 729.5 PAIN IN LIMB 09/27/2012 BELTRAN [...] N 496 COPD 09/27/2012 GRAHAM ESTRELLA, CHRIS N 729.5 PAIN IN LIMB 09/27/2012 GRAHAM ESTRELLA, CHRIS N 496 COPD 09/27/2012 GRAHAM ESTRELLA, CHRIS N 729.5 PAIN IN LIMB 09/27/2012 BELTRAN [...] DPM, KELLE 729.5 PAIN IN LIMB 09/27/2012 ZHU PHLEBOTOMY TECHNOLOGIST, RAHUL R 496 COPD 09/27/2012 ZHU PHLEBOTOMY TECHNOLOGIST, RAHUL R 729.5 PAIN IN LIMB 09/27/2012 [...] MD 729.5 PAIN IN LIMB 09/27/2012 CHRIS STEEVNSON MD 496 COPD 09/27/2012 CHRIS STEVENSON MD N [...] JULIET K V03.82 PPV23 (PNEUMOVAX) DX 12/06/2012 BLETRAN DO, JULIET K V03.82 PPV23 (PNEUMOVAX) DX 12/06/2012 BELTRAN DO, JULIET K V03.82 PPV23 (PNEUMOVAX) DX 12/06/2012 LUCA DEVRIESM, KELLE V03.82 PPV23 (PNEUMOVAX) DX 12/06/2012 RAHUL [...] PPV23 (PNEUMOVAX) DX 12/23/2012 RAHUL ZHU APRN R 786.2 COUGH 12/23/2012 BELTRAN DO, JULIET K 786.2 COUGH 12/23/2012 BELTRAN DO, JULIET K 786.2 COUGH 12/23/2012 BELTRAN DO, JULIET K 786.2 COUGH 12/23/2012 BELTRAN DO, JULIET K 786.2 COUGH 12/23/2012 BELTRAN DO, JUILET K 786.2 COUGH 12/23/2012 BELTRAN DO, JULIET K 786.2 COUGH 12/23/2012 GRAHAM ESTRELLA, CHRIS N [...] 12/23/2012 LUCA DPM, KELLE 786.2 COUGH 12/23/2012 RAHUL ZHU APRN 786.2 COUGH 12/23/2012 [...] PRESSURE READING WITHOUT DIAGNOSIS OF HYPERTENSION 01/14/2013 BLETRAN DO, JULIET K 796.2 ELEVATED BLOOD PRESSURE [...] READING WITHOUT DIAGNOSIS OF HYPERTENSION 01/14/2013 LUCA DPM, KELLE 796.2 ELEVATED BLOOD PRESSURE READING WITHOUT DIAGNOSIS OF HYPERTENSION 01/14/2013 AUDRA PHLEBOTOMY TECHNOLOGIST RAHUL R 796.2 ELEVATED BLOOD PRESSURE READING [...] OTHER GENERAL SYMPTOMS 01/24/2013 CHRIS STEVENSON MD 784.42 DYSPHONIA 01/24/2013 BELTRAN DO, JULIET K [...] K 784.42 DYSPHONIA 01/24/2013 CHRIS STEVENSON MD 780.99 OTHER GENERAL SYMPTOMS 01/24/2013 CHRIS STEVENSON MD 784.42 DYSPHONIA 01/24/2013 BELTRAN DO, JULIET K [...] DPM, KELLE 780.99 OTHER GENERAL SYMPTOMS 01/24/2013 LCUA DPM, KELLE 784.42 DYSPHONIA 01/24/2013 ZHU PHLEBOTOMY TECHNOLOGIST, RAHUL R 780.99 OTHER GENERAL SYMPTOMS 01/24/2013 ZHU PHLEBOTOMY TECHNOLOGIST, RAHUL R 784.42 DYSPHONIA 01/24/2013 BELTRAN DO, [...] K 784.42 DYSPHONIA 01/24/2013 CHRIS STEVENSON MD 780.99 OTHER GENERAL SYMPTOMS 01/24/2013 CHRIS STEVENSON MD 784.42 DYSPHONIA 01/24/2013 CHRIS STEVENSON MD 780.99 OTHER GENERAL SYMPTOMS 01/24/2013 CHRIS STEVENSON MD 784.42 DYSPHONIA 01/24/2013 BELTRAN DO, JULIET K 780.99 OTHER GENERAL SYMPTOMS 01/24/2013 BELTRAN DO, JULIET K 784.42 DYSPHONIA 01/24/2013 BELTRAN DO, JULIET K 780.99 OTHER GENERAL SYMPTOMS 01/24/2013 BELTRAN DO, JULIET K 784.42 DYSPHONIA 01/24/2013 CHRIS STEVENSON MD N 780.99 OTHER GENERAL SYMPTOMS 01/24/2013 CHRIS STEVENSON MD 784.42 DYSPHONIA 01/24/2013 CHRIS STEVENSON MD 780.99 OTHER GENERAL SYMPTOMS 01/24/2013 CHRIS STEVENSON MD 784.42 DYSPHONIA 01/24/2013 BELTRAN DO, JULIET K [...] CHRIS STEVENSON MD 704.00 ALOPECIA UNSPECIFIED 04/06/2013 CHRIS STEVENSON MD N 704.00 ALOPECIA UNSPECIFIED 04/06/2013 BELTRAN DO, JULIET K 704.00 ALOPECIA UNSPECIFIED 04/06/2013 BELTRAN DO, JULIET K 704.00 ALOPECIA UNSPECIFIED 04/06/2013 BELTRAN DO, JULIET K 704.00 ALOPECIA UNSPECIFIED 04/06/2013 BELTRAN DO, JULIET K 704.00 ALOPECIA UNSPECIFIED 04/06/2013 BELTRAN DO, JULIET K 704.00 ALOPECIA UNSPECIFIED 04/06/2013 BELTRAN DO, UJLIET K 704.00 ALOPECIA UNSPECIFIED 04/06/2013 LUCA ROBBINS, KELLE 704.00 ALOPECIA UNSPECIFIED 04/06/2013 AUDRA PHLEBOTOMY TECHNOLOGIST, RAHUL R 704.00 ALOPECIA UNSPECIFIED 04/06/2013 BELTRAN DO, JULIET K 704.00 ALOPECIA UNSPECIFIED 04/06/2013 BELTRAN DO, JULIET K 704.00 ALOPECIA UNSPECIFIED 04/06/2013 BELTRAN DO, JULIET K 704.00 ALOPECIA UNSPECIFIED 04/06/2013 BELTRAN DO, JULIET K 704.00 ALOPECIA UNSPECIFIED 04/06/2013 BELTRAN DO, JULIET K 704.00 ALOPECIA UNSPECIFIED 04/06/2013 BELTRAN DO, JULIET K 704.00 ALOPECIA UNSPECIFIED 04/06/2013 CHRIS STEVENSON MD 704.00 ALOPECIA UNSPECIFIED 04/06/2013 CHRIS STEVENSON MD [...] K V72.83 OTHER SPECIFIED PRE-OPERATIVE EXAMINATION 04/19/2013 KELLE DIAZ DPM V72.83 OTHER SPECIFIED PRE-OPERATIVE EXAMINATION 04/19/2013 SHANNON ZHU APRNIA Roxy V72.83 OTHER SPECIFIED PRE-OPERATIVE EXAMINATION 04/19/2013 BELTRAN [...] CHRIS STEVENSON MD 278.00 OBESITY 06/01/2013 CHRIS STEVENSON MD 786.09 [...] LUCA DPM, KELLE 786.09 DYSPNEA 06/01/2013 AUDRA PHLEBOTOMY TECHNOLOGIST, RAHUL R 278.00 OBESITY 06/01/2013 AUDRA PHLEBOTOMY TECHNOLOGIST, RAHUL R 786.09 DYSPNEA 06/01/2013 BELTRAN DO, [...] BELTRAN DO, JULIET K 786.09 DYSPNEA 06/10/2013 GRAHAM ESTRELLA, CHRIS Steiner 461.9 SINUSITIS ACUTE 06/10/2013 BELTRAN DO, JULIET [...] DO, JULIET K 461.9 SINUSITIS ACUTE 06/10/2013 GRAHAM ESTRELLA, CHRIS Steiner 461.9 SINUSITIS ACUTE 06/10/2013 BELTRAN DO, JULIET K 461.9 SINUSITIS ACUTE 06/10/2013 BELTRAN DO, JULIET K 461.9 SINUSITIS ACUTE 06/10/2013 BELTRAN DO, JULIET K 461.9 SINUSITIS ACUTE 06/10/2013 BELTRAN DO, JULIET K 461.9 SINUSITIS ACUTE 06/10/2013 BELTRAN DO, JULIET K 461.9 SINUSITIS ACUTE 06/10/2013 BELTRAN DO, JULIET K 461.9 SINUSITIS ACUTE 06/10/2013 GRAHAM ESTRELLA, CHRIS Steiner 461.9 SINUSITIS ACUTE 06/10/2013 GRAHAM ESTRELLA, CHRIS Steiner 461.9 SINUSITIS ACUTE 06/10/2013 BELTRAN DO, JULIET K 461.9 SINUSITIS ACUTE 06/10/2013 BELTRAN DO, JULIET K 461.9 SINUSITIS ACUTE 06/10/2013 BELTRAN DO, JULIET K 461.9 SINUSITIS ACUTE 06/10/2013 BELTRAN DO, JULIET K 461.9 SINUSITIS ACUTE 06/10/2013 BELTRAN DO, JULIET K 461.9 SINUSITIS ACUTE 06/10/2013 BELTRAN DO, JULIET K 461.9 SINUSITIS ACUTE 06/10/2013 LUCA DPM, KELLE 461.9 SINUSITIS ACUTE 06/10/2013 AUDRA ZAMORANSHANNONIA R 461.9 SINUSITIS ACUTE 06/10/2013 BELTRAN DO, JULIET K 461.9 SINUSITIS ACUTE 06/10/2013 BELTRAN DO, JULIET K 461.9 SINUSITIS ACUTE 06/10/2013 BELTRAN DO, JULIET K 461.9 SINUSITIS ACUTE 06/10/2013 BELTRAN DO, JULIET K 461.9 SINUSITIS ACUTE 06/10/2013 BELTRAN DO, JULIET K 461.9 SINUSITIS ACUTE 06/10/2013 BELTRAN DO, JULIET K 461.9 SINUSITIS ACUTE 06/10/2013 GRAHAM ESTRELLA, CHRIS Steiner 461.9 SINUSITIS ACUTE 06/10/2013 CHRIS STEVENSON MD 461.9 SINUSITIS ACUTE 06/10/2013 DEVIN DOJULIET K 461.9 SINUSITIS ACUTE 06/10/2013 BELTRAN DO, JULIET K 461.9 SINUSITIS ACUTE 06/10/2013 CHRIS STEEVNSON MD 461.9 SINUSITIS ACUTE 06/10/2013 CHRIS STEVENSON MD 461.9 SINUSITIS ACUTE 06/10/2013 BELTRAN DO, JULIET K 461.9 SINUSITIS ACUTE 06/10/2013 CHRIS STEVENSON MD 461.9 SINUSITIS ACUTE 06/10/2013 BELTRAN DO JULIET K 461.9 SINUSITIS ACUTE 08/10/2013 BELTRAN [...] V81.1 HYPERTENSION SCREENING 08/10/2013 CHRIS STEVENSON MD N V81.1 HYPERTENSION SCREENING 08/10/2013 BELTRAN DO, JULIET [...] LUCA DPM, KELLE V81.1 HYPERTENSION SCREENING 08/10/2013 RAHUL ZHU APRN R V81.1 HYPERTENSION SCREENING 08/10/2013 BELTRAN DO, JULIET K V81.1 HYPERTENSION SCREENING 08/10/2013 BELTRAN DO, JULIET K V81.1 HYPERTENSION SCREENING 08/10/2013 BELTRAN DO, JULIET K V81.1 HYPERTENSION SCREENING 08/10/2013 BELTRAN DO, JULIET K V81.1 HYPERTENSION SCREENING 08/10/2013 BELTRAN DO, JULIET K V81.1 HYPERTENSION SCREENING 08/10/2013 BELTRAN DO, JULIET K V81.1 HYPERTENSION SCREENING 08/10/2013 CHRIS STEVENSON MD N V81.1 HYPERTENSION SCREENING 08/10/2013 CHRIS STEVENSON MD V81.1 HYPERTENSION SCREENING 08/10/2013 BELTRAN DO, JULIET K V81.1 HYPERTENSION SCREENING 08/10/2013 BETLRAN DO, JULIET K V81.1 HYPERTENSION SCREENING 08/10/2013 CHRIS STEVENSON MD V81.1 HYPERTENSION SCREENING 08/10/2013 CHRIS STEVENSON MD V81.1 HYPERTENSION SCREENING 08/10/2013 BELTRAN DO, JULIET K V81.1 HYPERTENSION SCREENING 08/10/2013 CHRIS STEVENSON MD V81.1 HYPERTENSION SCREENING 08/10/2013 BELTRAN DO, JULIET K V81.1 HYPERTENSION SCREENING 10/03/2013 BELTRAN DO, JULIET K V45.86 BARIATRIC SURGERY STATUS 10/03/2013 EBLTRAN DO, JULIET K V45.86 BARIATRIC SURGERY STATUS 10/03/2013 BELTRAN DO, JULIET K V45.86 BARIATRIC SURGERY STATUS 10/03/2013 BELTRAN DO, JULIET K V45.86 BARIATRIC SURGERY STATUS 10/03/2013 BELTRAN DO, JULIET K V45.86 BARIATRIC SURGERY STATUS 10/03/2013 GRAHAM MD, CHRIS N V45.86 BARIATRIC SURGERY STATUS 10/03/2013 BELTRAN DO, [...] JULIET K V45.86 BARIATRIC SURGERY STATUS 10/03/2013 LUCA ROBBINS, KELLE V45.86 BARIATRIC SURGERY STATUS 10/03/2013 RAHUL ZHU APRN V45.86 BARIATRIC SURGERY STATUS 10/03/2013 BELTRAN DO, JULIET K V45.86 BARIATRIC SURGERY STATUS 10/03/2013 BELTRAN DO, JULIET K V45.86 BARIATRIC SURGERY STATUS 10/03/2013 BELTRAN DO, JULIET K V45.86 BARIATRIC SURGERY STATUS 10/03/2013 BELTRAN DO, JULIET K V45.86 BARIATRIC SURGERY STATUS 10/03/2013 BELTRAN DO, JULIET K V45.86 BARIATRIC SURGERY STATUS 10/03/2013 BELTRNA DO, JULIET K V45.86 BARIATRIC SURGERY STATUS [...] DO, JULIET K 724.5 BACKACHE UNSPECIFIED 10/17/2013 KELLE DIAZ DPM 724.5 BACKACHE UNSPECIFIED 10/17/2013 RAHUL ZHU APRN [...] ESTRELLA, CHRIS Steiner 724.5 BACKACHE UNSPECIFIED 10/17/2013 CHRIS STEVENSON MD 724.5 BACKACHE UNSPECIFIED 10/17/2013 BELTRAN DO, JULIET K 724.5 BACKACHE UNSPECIFIED 10/17/2013 BELTRAN DO, JULIET K 724.5 BACKACHE UNSPECIFIED 10/17/2013 CHRIS STEVENSON MD 724.5 BACKACHE UNSPECIFIED 10/17/2013 GRAHAM ESTRELLA, CHRIS Steiner 724.5 BACKACHE UNSPECIFIED 10/17/2013 BELTRAN DO, JULIET K 724.5 BACKACHE UNSPECIFIED 10/17/2013 CHRIS STEVENSON MD 724.5 BACKACHE UNSPECIFIED 10/17/2013 BELTRAN DO, JULIET K 724.5 BACKACHE UNSPECIFIED 11/07/2013 BELTRAN DO, JULIET K V81.1 HYPERTENSION SCREENING 11/07/2013 EBLTRAN DO, JULIET K V81.1 HYPERTENSION SCREENING 11/07/2013 [...] K V81.1 HYPERTENSION SCREENING 11/07/2013 BELTRAN DO, JULEIT K V81.1 HYPERTENSION SCREENING 11/07/2013 BELTRAN DO, JULIET K V81.1 HYPERTENSION SCREENING 11/07/2013 BELTRAN DO, JULIET K V81.1 HYPERTENSION SCREENING 11/07/2013 BELTRAN DO, JULIET K V81.1 HYPERTENSION SCREENING 11/07/2013 LUCA ROBBINS, KELLE V81.1 HYPERTENSION SCREENING 11/07/2013 ZHU PHLEBOTOMY TECHNOLOGIST, RAHUL R V81.1 HYPERTENSION SCREENING 11/07/2013 BELTRAN DO, JULIET [...] STEVENSON MD N V81.1 HYPERTENSION SCREENING 11/07/2013 BELTRNA DO, JULIET K V81.1 HYPERTENSION SCREENING 11/07/2013 [...] JULIET K 783.41 FAILURE TO THRIVE 11/18/2013 CRHIS STEVENSON MD N 783.41 FAILURE TO THRIVE [...] DIAZ DPM 783.41 FAILURE TO THRIVE 11/18/2013 ZHU RAHUL DIAZ R 783.41 FAILURE TO THRIVE 11/18/2013 BELTRAN [...] FAILURE TO THRIVE 12/13/2013 CHRIS STEVENSON MD 706.2 SEBACEOUS CYST [...] KELLE V76.51 COLON CANCER SCREENING 12/13/2013 ZHU PHLEBOTOMY TECHNOLOGIST, RAHUL R 706.2 SEBACEOUS CYST 12/13/2013 ZHU PHLEBOTOMY TECHNOLOGIST, RAHUL R V76.51 COLON CANCER SCREENING 12/13/2013 [...] DPM, KELLE V06.1 TDAP DX 12/26/2013 AUDRA PHLEBOTOMY TECHNOLOGIST, RAHUL R V06.1 TDAP DX 12/26/2013 BELTRAN DO, JULIET K V06.1 TDAP DX 12/26/2013 BELTRAN DO, JULIET K V06.1 TDAP DX 12/26/2013 BELTRAN DO, JULIET K V06.1 TDAP DX 12/26/2013 BELTRAN DO, JULIET K V06.1 TDAP DX 12/26/2013 BELTRAN DO, JULIET K V06.1 TDAP DX 12/26/2013 BELTRAN DO, JULIET K V06.1 TDAP DX 12/26/2013 CHRIS STEVENSON MD V06.1 TDAP DX 12/26/2013 GRAHAM ESTRELLA, CHRIS [...] GRAHAM ESTRELLA, CHRIS N Ot 274.9 01/12/2014 CHRIS STEVENSON MD N Ot 706.2 02/03/2014 LUCA DPM, KELLE 727.42 GANGLION OF TENDON SHEATH 02/03/2014 LUCA DPM, KELLE 735.4 HAMMER TOE (ACQUIRED) 02/03/2014 ZHU PHLEBOTOMY TECHNOLOGIST, RAHUL R 727.42 GANGLION OF TENDON SHEATH 02/03/2014 ZHU PHLEBOTOMY TECHNOLOGIST, RAHUL R 735.4 HAMMER TOE (ACQUIRED) 02/03/2014 AUDRA PHLEBOTOMY TECHNOLOGIST, RAHUL R 786.07 WHEEZING 02/03/2014 ZHU PHLEBOTOMY TECHNOLOGIST, RAHUL R 786.2 COUGH 02/03/2014 BELTRAN DO, [...] 727.42 GANGLION OF TENDON SHEATH 02/03/2014 BELTRAN DO JULIET K 735.4 HAMMER TOE (ACQUIRED) 02/03/2014 BELTRAN DO JULIET K 786.07 WHEEZING 02/03/2014 BELTRAN DO JULIET K 786.2 COUGH 02/03/2014 CHRIS STEVENSON MD N 727.42 GANGLION OF TENDON SHEATH 02/03/2014 CHRIS STEVENSON MD N 735.4 HAMMER TOE (ACQUIRED) 02/03/2014 CHRIS STEVENSON MD N 786.07 WHEEZING 02/03/2014 CHRIS STEVENSON MD N 786.2 COUGH 02/03/2014 BELTRAN DO JULIET K 727.42 GANGLION OF TENDON SHEATH 02/03/2014 BELTRAN DO JULIET K 735.4 HAMMER TOE (ACQUIRED) 02/03/2014 BELTRAN DO JULIET K 786.07 WHEEZING 02/03/2014 BELTRAN DO JULIET K 786.2 COUGH 02/14/2014 CHRIS STEVENSON MD Ot 274.9 02/14/2014 CHRIS STEVENSON MD Ot 706.2 02/20/2014 YASIR MELARA MD Ot 211.3 02/20/2014 YASIR MELARA MD Ot 562.10 02/20/2014 YASIR MELARA MD Ot 600.00 02/20/2014 YASIR MELARA MD Ot V16.0 02/20/2014 SARITHA ESTRELLA, YASIR [place] Ot V76.51 03/24/2014 CHRIS STEVENSON MD 701.1 HYPERKERATOSIS 03/24/2014 CHRIS STEVENSON MD 701.1 HYPERKERATOSIS 03/24/2014 BELTRAN DO JULIET K 701.1 HYPERKERATOSIS 03/24/2014 BELTRAN DO JULIET K 701.1 HYPERKERATOSIS 03/24/2014 CHRIS STEVENSON MD 701.1 HYPERKERATOSIS 03/24/2014 CHRIS STEVENSON MD 701.1 HYPERKERATOSIS 03/24/2014 BELTRAN DO JULIET K 701.1 HYPERKERATOSIS 03/24/2014 CHRIS STEVENSON MD 701.1 HYPERKERATOSIS 03/24/2014 BELTRAN DO JULIET K 701.1 HYPERKERATOSIS 03/31/2014 CHRIS STEVENSON MD N 368.2 DIPLOPIA 03/31/2014 CHRIS STEVENSON MD 368.2 DIPLOPIA 03/31/2014 BELTRAN DO JULIET K 368.2 DIPLOPIA 03/31/2014 BELTRAN DO JULIET K 368.2 DIPLOPIA 03/31/2014 CHRIS STEVENSON MD 368.2 DIPLOPIA 03/31/2014 CHRIS STEVENSON MD 368.2 DIPLOPIA 03/31/2014 BELTRAN DO JULIET K 368.2 DIPLOPIA 03/31/2014 CHRIS STEVENSON MD 368.2 DIPLOPIA 03/31/2014 BELTRAN DO JULIET K 368.2 DIPLOPIA 04/07/2014 CHRIS STEVENSON MD V81.1 HYPERTENSION SCREENING 04/07/2014 BELTRAN DO JULIET K V81.1 HYPERTENSION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
[2017-04-04 15:55] VITALS: BP 194/105
== END 2017-04-04 15:55 | disposition home or self-care (01) ==
LOC: EDUNIT# 15:10 → ER 15:11
DX: S93.402A Sprain of unspecified ligament of left ankle, initial encounter (principal); G47.30 Sleep apnea, unspecified; E78.00 Pure hypercholesterolemia, unspecified; I10 Essential (primary) hypertension; N40.0 Benign prostatic hyperplasia without lower urinary tract symptoms; K21.9 Gastro-esophageal reflux disease without esophagitis; M10.9 Gout, unspecified; F41.9 Anxiety disorder, unspecified; F32.9 Major depressive disorder, single episode, unspecified; Z82.49 Family history of ischemic heart disease and other diseases of the circulatory system; Z80.0 Family history of malignant neoplasm of digestive organs; Z86.010 Personal history of colon polyps; Z87.442 Personal history of urinary calculi; Z86.718 Personal history of other venous thrombosis and embolism; Z88.0 Allergy status to penicillin; Z88.1 Allergy status to other antibiotic agents; Z88.2 Allergy status to sulfonamides; Z79.52 Long term (current) use of systemic steroids; Z87.19 Personal history of other diseases of the digestive system; Z90.49 Acquired absence of other specified parts of digestive tract; Z98.84 Bariatric surgery status; Z90.89 Acquired absence of other organs; X50.0XXA Overexertion from strenuous movement or load, initial encounter; Y92.481 Parking lot as the place of occurrence of the external cause
CPT/HCPCS: 73610; 99283

== ENCOUNTER → 2017-04-22 | Outpatient (CLI) | payer MEDICARE ==
--- NOTE | 2017-04-22 14:19 | Diagnostic Imaging Report ---
PROCEDURE: US Abdomen, limited. TECHNIQUE: Multiple realtime grayscale images were obtained over the abdomen in various projections. INDICATION: Right groin pain. Sonographic interrogation of the right groin was performed. No solid or cystic mass is identified. No abnormality is seen. IMPRESSION: Unremarkable right groin ultrasound. Dictated by: Dictated on workstation # [id number]
== END ==
LOC: RAD 12:35
PROVIDERS: ATTEND Family Medicine
DX: R10.31 Right lower quadrant pain (principal)
CPT/HCPCS: 76705

== ENCOUNTER 2017-07-22 09:03 | Outpatient (RCR) | payer OTHER | END 2017-07-22 15:35 | disposition home or self-care (01) | PROVIDERS: ATTEND Nurse Practitioner | DX: M54.5 Low back pain (principal) ==

== ENCOUNTER 2018-01-29 10:41 | Outpatient (RCR) | payer OTHER ==
[~2018-01-29 10:41] MED LIST changes: +METR-197 PO; -METR500T21 PO
[2018-02-26] MEDS ORDERED: PRD20T PO (20:16)
== END 2018-03-03 09:52 | disposition home or self-care (01) ==
PROVIDERS: ATTEND Nurse Practitioner
DX: M25.511 Pain in right shoulder (principal)

== ENCOUNTER → 2018-02-26 | Emergency (ER) | payer MEDICARE, OTHER ==
[~2018-02-26] VITALS: Ht 177.8 cm; Wt 149.7 kg
[~2018-02-26] MED LIST changes: +KETOROLAC 30 MG/ML VIAL IM ONE; +methylPREDNISolone 40 MG/ML (DEPO MEDROL) VIAL IM ONE
--- OUTSIDE RECORDS SUMMARY | 2018-02-26 18:43 | XMS REPORT | Clinical Summary ---
Author Author [facility] Organization 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 If you do not see the information that you expected, contact Release of Information in the Health Information Management department at [phone] for further assistance in locating additional records.[facility] Allergies Not on File Medications End Date Status Medication Sig Dispensed Refills Start Date Active diclofenac sodium DR Take 1 Tab by 60 Tab 1 (VOLTAREN) 75 mg mouth twice 6 tabletIndications: daily. Osteoarthritis Indications: OSTEOARTHRITI S Active Problems Not on file Social History Date Tobacco Use Types Packs/Day Years Used Never Assessed Sex Assigned at Date Recorded Not on file Industry Job Start Date Occupation Not on file Not on file Not on file Travel End Travel History Travel Start No recent travel history available. Last Filed Vital Signs Not on file Plan of Treatment Health Maintenance Due Date Last Done Comments HEPATITIS C SCREENING 1950 PHYSICAL (COMPREHENSIVE) 1956 EXAM DTAP/TDAP VACCINES (1 - 12/22/1967 Tdap) COLORECTAL CANCER 12/22/1999 SCREENING SHINGLES RECOMBINANT 12/22/1999 VACCINE (1 of 2) PNEUMONIA (PCV13/PPSV23) 2014 VACCINES (1 of 2 - PCV13) INFLUENZA VACCINE 09/30/2017 Results Not on filefrom Last 3 Months Insurance Payer Benefit Subscriber ID Type Phone Address Plan / Group MEDICARE MEDICARE xxxxxxxxxx Medicare PART A AND B [employer] [place] [employer] xxxxxxxxxxx Medicaid Advance Directives Patient has advance care planning documents on file. For more information, please contact: [facility] [phone] [place] [address]
--- OUTSIDE RECORDS SUMMARY | 2018-02-26 18:44 | XMS REPORT ---
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 Name Role Phone GRAHAMELLIOTT HANNAHANY Unavailable PROBLEMS Type Condition ICD9-CM Code FCE36-GI Code Onset Dates Condition Status SNOMED Code Problem Pulmonary asbestosis J61 Active 35015330 Problem Left ventricular diastolic dysfunction I51.9 Active 490662938 Problem Chronic gout, unspecified cause, unspecified site M1A.9XX0 Active 69884308 Problem Renal cyst, left N28.1 Active 11333427 Problem History of weight loss surgery Z98.84 Active 733897742 Problem Nocturnal hypoxia G47.34 Active 930722552 Problem Obstructive sleep apnea syndrome G47.33 Active 90621107 Problem History of diverticulitis Z87.19 Active 014935807214880 Problem Allergic rhinitis, unspecified allergic rhinitis type J30.9 Active 65629740 Problem Erectile dysfunction due to diseases classified elsewhere N52.1 Active 717797933 Problem Acute right-sided low back pain with right-sided sciatica M54.41 Active 249275076 Problem Psoriasis L40.9 Active 7996330 Problem Essential hypertension I10 Active 90798980 Problem Nephrolithiasis N20.0 Active 67469596 Problem Chronic prescription opiate use Z79.899 Active 746996006 Problem 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 Active 40449333 Problem Benign prostatic hyperplasia, presence of lower urinary tract symptoms unspecified, unspecified morphology N40.0 Active 817036934 Problem Moderate episode of recurrent major depressive disorder F33.1 Active 445966339 Problem Age-related osteoporosis without current pathological fracture M81.0 Active 31953055 Problem Low back pain M54.5 Active 872949443 Problem Anxiety F41.9 Active 14205819 Problem Urge incontinence N39.41 Active 070496264 Problem Hyperlipidemia, unspecified E78.5 Active 16907836 Problem Esophageal stricture K22.2 Active 82387595 Problem Cervicalgia M54.2 Active 5752701848219 Problem Primary insomnia F51.01 Active 043998012 ALLERGIES No Information ENCOUNTERS Encounter Location Date Diagnosis [facility] [address] [address]88- [address]12 Dec, [facility] [id number] [place] [address] 45575- 2873 Nov, Anxiety F41.9 [facility] [address] 91140- 2983 Oct, [facility] [address] 27295- 2101 Oct, [facility] [address] 39837- 3080 Oct, BMI 45.0-49.9, adult Z68.42 ; Essential hypertension I10 ; Hyperlipidemia, unspecified E78.5 ; Anxiety F41.9 ; Obstructive sleep apnea syndrome G47.33 ; Moderate episode of recurrent major depressive disorder F33.1 ; Left ventricular diastolic dysfunction I51.9 ; Acute pain of right shoulder M25.511 ; Pain of left foot M79.672 and Pain in right foot M79.671 [facility] [address] 52048- 4878 Oct, Anxiety F41.9 [facility] [id number] [place] [address] 95413 -8143 Sep, Left foot pain M79.672 [facility] [id number] [place] [address] 75781- 5441 Sep, [facility] [id number] [place] [address] 48700- 7111 Sep, Anxiety F41.9 [facility] [id number] [place] [address] 95964- 4764 Sep, [facility] [id number] [place] [address] 48121- 2731 Aug, [facility] [address] [address] 5836 Aug, [facility] [id number] [place] [address] 61864- 8569 Aug, Anxiety F41.9 [facility] [address] [place] [address] 77658- 2034 Aug, [facility] [id number] [place] [address] 47223- 3886 Jul, [facility] [id number] [place] [address] 33427- 6376 Jul, Anxiety F41.9 [facility] [id number] [place] [address] 36891- 7032 June, Anxiety F41.9 [facility] [id number] [place] [address] 28293- 4037 June, [facility] [id number] [place] [address] 79660- 6381 June, Low back pain M54.5 ; Chronic prescription opiate use Z79.899 ; Candidal intertrigo B37.2 ; Urge incontinence N39.41 ; Essential hypertension I10 ; Moderate episode of recurrent major depressive disorder F33.1 ; Age-related osteoporosis without current pathological fracture M81.0 and BMI 45.0-49.9, adult Z68.42 [facility] [address] [place] [address] 58797- 8426 June, [facility] [id number] [place] [address] 04268- 7738 May, Anxiety F41.9 [facility] [id number] [place] [address] 94210- 8456 May, [facility] [address] [place] [address] 04529- 2072 May, [facility] [id number] [place] [address] 91289- 8095 Apr, Anxiety F41.9 [facility] [id number] [place] [address] 44342- 3736 Apr, [facility] [id number] [place] [address] 01392- 0779 Apr, Low back pain M54.5 [facility] [id number] [place] [address] 53134- 1607 Apr, [facility] [id number] [place] [address] 85378- 2507 Apr, [facility] [id number] [place] [address] 71942- 4167 Apr, Anxiety F41.9 [facility] [id number] [place] [address] 67048- 5232 Apr, Right groin pain R10.31 [facility] [id number] [place] [address] 24351- 0935 Mar, [facility] [id number] [place] [address] 61006- 3968 Mar, [facility] [id number] [place] [address] 38336- 2442 Mar, Anxiety F41.9 [facility] [id number] [place] [address] 89534- 1902 Mar, Low back pain M54.5 [facility] [id number] [place] [address] 10567- 9277 Mar, Right groin pain R10.31 ; Low back pain M54.5 and BMI 45.0- 49.9, adult Z68.42 [facility] [address], [place] [address]- 4729 Mar, [facility] [id number] [place] [address] 10511- 9753 Mar, [facility] [address], [place] [address]- 3874 Mar, [facility] [id number] [place] [address] 23524 -7481 Mar, [facility] [id number] [place] [address] 33562 -0512 Mar, Cough R05 ; Pneumonia of right lower lobe due to infectious organism J18.1 and Abnormal chest x-ray R93.8 [facility] [id number] [place] [address] 17291- 8471 Mar, [place] [id number] [place] [address] 07563- 8080 Mar, [place] [address] [place] [address] 71835- 9233 Jan, Anxiety F41.9 [place] [id number] [place] [address] 59010- 9789 Jan, [place] [address] [place] [address] 64693- 6864 Jan, Moderate episode of recurrent major depressive disorder F33.1 [place] [address] [place] [address] 87517- 2771 Jan, Subacromial bursitis of right shoulder joint M75.51 ; Shortness of breath on exertion R06.02 and BMI 45.0-49.9, adult Z68.42 [place] [id number] [place] [address] 48099- 4609 Dec, Anxiety F41.9 [place] [address] [place] [address] 92345- 5236 Dec, [place] [address] [place] [address] 92587- 7013 Dec, Low back pain M54.5 [place] [address] [place] [address] 48667- 8962 Oct, Low back pain M54.5 [facility] [address] [place] [address] 67772- 0450 Sep, [facility] [id number] [place] [address] 86184- 3472 Sep, Erectile dysfunction due to diseases classified elsewhere N52.1 [facility] [id number] [place] [address] 79682- 4265 Sep, Erectile dysfunction due to diseases classified elsewhere N52.1 [facility] [id number] [place] [address] 18511- 1106 Sep, [facility] [id number] [place] [address] 89323- 0975 Sep, Erectile dysfunction due to diseases classified elsewhere N52.1 [facility] [id number] [place] [address] 82284- 9465 Sep, Low back pain M54.5 and Anxiety F41.9 [facility] [address] [place] [address] 58457 -3126 Aug, Acute allergic rhinitis J30.9 [facility] [id number] [place] [address] 01792- 1083 Aug, [facility] [id number] [place] [address] 83365- 9144 Aug, Anxiety F41.9 [facility] [id number] [place] [address] 52507- 2445 Jul, Low back pain M54.5 ; Chronic prescription opiate use Z79.899 and Essential hypertension I10 [facility] [id number] [place] [address] 50191- 1786 Jul, Anxiety F41.9 and Low back pain M54.5 [facility] [id number] [place] [address] 55805- 2119 June, [place] [address] [place] [address] 71912- 4832 June, Anxiety F41.9 [facility] [id number] [place] [address] 71682- 4856 May, Low back pain M54.5 [facility] [id number] [place] [address] 85813- 7226 May, [facility] [id number] [place] [address] 97624- 6610 May, Anxiety F41.9 [facility] [id number] [place] [address] 53509- 9618 Apr, [facility] [id number] [place] [address] 08258- 8808 Apr, Low back pain M54.5 [facility] [address] [place] [address] 72232- 4975 Apr, Moderate episode of recurrent major depressive disorder F33.1 [facility] [id number] [place] [address] 53712- 7985 Apr, Anxiety F41.9 [facility] [id number] [place] [address] 93721- 0833 Apr, Low back pain M54.5 [facility] [address] [place] [address] 95135- 9133 15 Apr, 2016 Elevated alkaline phosphatase level R74.8 [facility] [address] [place] [address] 90650- 3545 10 Apr, 2016 Alkaline phosphatase elevation R74.8 [facility] [id number] [place] [address] 63293- 1856 06 Apr, 2016 Anxiety F41.9 [facility] [address] [place] [address] 54309- 4286 Apr, Low back pain M54.5 [facility] [address] [place] [address] 23559- 3394 03 Apr, 2017 History of weight loss surgery Z98.84 ; Encounter for hepatitis C screening test for low risk patient Z11.59 ; History of herpes genitalis Z86.19 ; Essential hypertension I10 ; Hyperlipidemia, unspecified E78.5 ; Exposure to STD Z20.2 and Benign prostatic hyperplasia, presence of lower urinary tract symptoms unspecified, unspecified morphology N40.0 [place] [id number] [place] [address] 71452- 8118 02 Apr, 2016 [place] [id number] [place] [address] 30489- 0793 Mar, [place] [id number] [place] [address] 90959- 9587 Mar, [place] [address] [place] [address] 21162- 0796 Mar, [place] [address] [place] [address] 97113- 4100 Mar, Acute right-sided low back pain with right-sided sciatica M54.41 [place] [address] [place] [address] 99887- 2029 Mar, Low back pain M54.5 [facility] [address] [place] [address] 13147 -6659 13 Mar, 2016 Muscle strain of chest wall, initial encounter S29.011A ; Muscle strain of right thigh, initial encounter S76.911A and Acute non- recurrent maxillary sinusitis J01.00 [place] [address] [place] [address] 38609- 9185 03 Mar, 2016 Benign prostatic hyperplasia, presence of lower urinary tract symptoms unspecified, unspecified morphology N40.0 [place] [address] [place] [address] 32552- 8760 Jan, Low back pain M54.5 [place] [id number] [place] [address] 34553- 9029 13 Jan, 2016 Low back pain M54.5 ; Essential hypertension I10 ; Hyperlipidemia, unspecified E78.5 ; Anxiety F41.9 ; Moderate episode of recurrent major depressive disorder F33.1 ; Primary insomnia F51.01 ; Exposure to STD Z20.2 ; Encounter for hepatitis C screening test for low risk patient Z11.59 and History of herpes genitalis Z86.19 [facility] [address] 02194- 0205 17 Jan, 2016 [facility] [address] 91521- 2350 Nov, [place] [address] 99941- 5573 14 Dec, 2015 Anxiety F41.9 ; Cervicalgia M54.2 ; Moderate episode of recurrent major depressive disorder F33.1 and Encounter for immunization Z23 [place] [id number] [place] [address] 51071- 7250 23 Nov, 2015 [place] [address] 01135- 1236 22 Nov, 2015 [place] [id number] [place] [address] 10941- 7791 16 Nov, 2015 [facility] [id number] [place] [address] 74430- 2576 09 Nov, 2015 [facility] [id number] [place] [address] 16231- 4298 Sep, [facility] [id number] [place] [address] 62850- 2780 Aug, Low back pain M54.5 ; Anxiety F41.9 ; Primary insomnia F51.01 and Chronic prescription opiate use Z79.899 [facility] [id number] [place] [address] 82609- 0047 Jul, [facility] [id number] [place] [address] 61734- 9176 Jul, [facility] [address] [id number] [place] [address]- 0702 Jul, [facility] [address] [id number] [place] [address]- 8171 Jul, [facility] [address] [facility] [id number] [place] [address]- 3176 Jul, [facility] [address] [facility] [id number] [place] [address]- 6907 June, [facility] [address] [id number] [place] [address]- 7821 June, [facility] [address] [facility] [id number] [place] [address]- 4877 June, [facility] [address] [facility] [id number] [place] [address]- 1056 June, [facility] [id number] [address]- 6843 May, Preoperative cardiovascular examination Z01.810 [facility] [address] [address]- 2682 May, [facility] [address] [facility] [id number], [place] [address]- 2448 Apr, [facility] [address] [facility] [id number], [place] [address]- 0682 Apr, Osteoarthritis of right knee M17.9 [facility] [address] [facility] [id number] [place] [address]- 7920 30 May, 2015 [facility] [address] [facility] [id number] [place] [address]- 3979 16 May, 2015 [facility] [address] [facility] [id number] [place] [address]- 3483 Apr, [facility] [address] [facility] [id number] [place] [address]- 8796 Apr, [facility] [id number] [place] [address] 06478- 3730 Apr, History of excessive cerumen Z78.9 ; Obstructive sleep apnea syndrome G47.33 ; History of diverticulitis Z87.19 and Nephrolithiasis N20.0 [facility] [id number] [place] [address] 31863- 9520 Apr, [facility] [address] 70439 -8393 Apr, Abdominal pain R10.9 [place] [address] 76751- 7856 Apr, [place] [address] 64010- 7804 Apr, Osteoarthritis of right knee M17.9 [place] [address] 42263- 4094 Mar, [place] [id number] [place] [address] 77189- 7821 Mar, [place] [address] 40756- 9003 Mar, [place] [id number] [place] [address] 59911- 0472 Mar, [facility] [id number] [place] [address] 89195 -1419 Mar, Pyelonephritis N12 ; Left-sided thoracic back pain M54.6 ; Hematuria, unspecified R31.9 and Kidney stone N20.0 [place] [address] 06072- 4064 12 Mar, 2015 History of weight loss surgery Z98.84 [facility] [id number] [place] [address] 87936- 9289 07 Mar, 2015 History of weight loss surgery Z98.84 and Hyperlipidemia, unspecified E78.5 [facility] [address] [place] [address] 56641- 4012 Mar, 2016 Low back pain M54.5 ; Chronic prescription opiate use Z79.899 ; Hyperlipidemia, unspecified E78.5 ; Spasm of back muscles M62.830 and History of weight loss surgery Z98.84 [facility] [id number] [place] [address] 17504- 3214 Jan, [facility] [id number] [place] [address] 96431- 2107 Jan, [facility] [id number] [place] [address] 40751- 3305 Jan, [facility] [id number] [place] [address] 87627- 4787 Dec, [facility] [id number] [place] [address] 56197- 9700 Dec, [facility] [id number] [place] [address] 40714- 9690 Dec, [facility] [id number] [place] [address] 06772- 3900 Nov, [facility] [id number] [place] [address] 37697- 2067 Nov, Obstructive sleep apnea syndrome G47.33 and Pharyngoesophageal dysphagia R13.14 [facility] [address] [place] [address] 15779- 7400 Nov, [facility] [address] [place] [address] 13058- 8939 Nov, [facility] [address] [place] [address] 65367- 6168 Nov, [facility] [address] [place] [address] [id number] 30 Oct, 2014 Dental examination V72.2 [facility] [address] [address]- 8797 Oct, 2014 [facility] [id number] [place] [address] 31058- 7250 Oct, [facility] [id number] [place] [address] 25398- 9460 Oct, [facility] [id number] [place] [address] 06531- 1825 Oct, [facility] [id number] [place] [address] 10329- 5550 Oct, BPH (benign prostatic hyperplasia) 600.00 and Urinary frequency 788.41 [facility] [address] [place] [address] 26396- 6865 Oct, [facility] [id number] [place] [address] 19203- 7863 Oct, [facility] [id number] [place] [address] 85680- 1833 Oct, [facility] [id number] [place] [address] 30083- 3498 Sep, Cerumen impaction 380.4 ; Cerumen debris on tympanic membrane 380.4 ; Psoriasis 696.1 and MICKY (secretory otitis media) 381.4 [facility] [address] [place] [address] [id number] Sep, Dental examination V72.2 [facility] [id number] [place] [address] 31140- 2916 Sep, Fatigue 780.79 ; Irritable bowel syndrome 564.1 ; Overweight 278.02 ; Poor sleep V69.4 ; Shaking spells 781.0 and Broken tooth 873.63 [facility] [id number] [place] [address] 80405- 3112 Sep, [facility] [id number] [place] [address] 55398- 5122 Sep, [facility] [id number] [address]- 3219 Aug, [facility] [address] [address]- 1154 Jul, [facility] [address] [address]- 4989 Jul, [facility] [address] [place] [address], [place] [address]- 3125 Jul, [facility] [address] [address]- 3388 Jul, [facility] [address] [place] [address], [place] [address]- 4963 June, Arthritis of knee, right 716.96 [facility] [address] [address]- 8777 June, [facility] [address], [place] [address]- 1498 June, Elevated blood pressure reading without diagnosis of hypertension 796.2 [facility] [address] [address]- 0704 June, [facility] [address], [place] [address]- [address] June, [facility] [id number], [place] [address] June, [facility] [id number], [place] [address] June, [facility] [id number] [address] May, [facility] [id number] [address] May, [facility] [id number] [address] Apr, [facility] [place] [facility] [address] [id number] [place] [address] 30 Apr, 2014 [facility] [place] [facility] [address] [id number] [place] [address] Apr, [facility] [place] [facility] [address] [id number] [place] [address] Apr, [facility] [place] [facility] [address] [id number] [place] [address] Apr, [facility] [place] [facility] [address] [id number] [place] [address] Apr, [facility] [place] [facility] [address] [id number] [place] [address] Apr, [facility] [place] [facility] [address] [id number] [place] [address] Apr, [facility] [place] [facility] [address] [id number] [place] [address] Apr, [facility] [place] [facility] [address] [id number] [place] [address] Apr, [facility] [place] [facility] [address] [id number] [place] [address] Apr, 2014 [facility] [place] [facility] [address] [id number] [place] [address] 6777 Apr, 2014 [facility] [place] [facility] [address] [id number] [place] [address] 7647 Apr, 2014 [facility] [place] [facility] [address] [id number] [place] [address]- 3344 Apr, 2014 [facility] [place] [facility] [address] [id number] [place] [address] 0036 Apr, 2014 [facility] [place] [facility] [address] [id number] [place] [address] 3844 Apr, 2014 [facility] [place] [facility] [address] [id number] [place] [address]- 4378 20 Apr, 2014 [facility] [place] [facility] [address] [id number] [place] [address] 2546 20 Apr, 2014 [facility] [place] [facility] [address] [id number] [place] [address] 2546 18 Apr, 2014 [facility] [place] [facility] [address] [id number] [place] [address]- 4828 18 Apr, 2014 [facility] [place] [facility] [address] [id number] [place] [address]- 2545 13 Apr, 2014 [facility] [place] [facility] [address] [id number] [place] [address]- 7786 13 Apr, 2014 [facility] [place] [facility] [address] [facility] [id number] [place] [address]- 1449 13 Apr, 2014 [facility] [place] [facility] [address] [facility] [id number] [place] [address]- 4507 13 Apr, 2014 [facility] [place] [facility] [address] [facility] [id number] [place] [address]- 1849 12 Apr, 2014 [facility] [place] [facility] [address] [facility] [id number] [place] [address]- 8944 12 Apr, 2014 [facility] [place] [facility] [id number] [address] 9131 Apr, 2014 [facility] [place] [facility] [address] [facility] [id number], [place] [address]47 Apr, 2014 [facility] [place] [facility] [address] [facility] [id number] [place] [address]- 2547 Apr, 2014 [facility] [place] [facility] [address] [facility] [id number] [place] [address]- 3196 Apr, 2014 [facility] [place] [facility] [address] [facility] [id number] [place] [address]- 2737 Apr, 2014 [facility] [place] [facility] [address] [facility] [id number] [place] [address]- 3977 05 Apr, 2014 [facility] [address] [id number] [place] [address]- 3450 Apr, [facility] [place] [facility] [address] [id number] [place] [address]- 2930 Mar, [facility] [place] [facility] [address] [id number] [place] [address]- 3935 Mar, [facility] [place] [facility] [address] [id number] [place] [address]- 5632 Mar, [facility] [place] [facility] [address] [id number] [place] [address]- 4382 Mar, [facility] [place] [facility] [address] [id number] [place] [address]- 0785 Mar, [facility] [address] [id number] [place] [address]- 1311 Mar, [facility] [place] [facility] [address] [id number] [place] [address]- 0295 Mar, [facility] [place] [facility] [address] [id number] [place] [address]- 5801 Mar, [facility] [address] [id number] [place] [address]- 2958 Mar, [facility] [place] [facility] [address] [id number] [place] [address]- 2963 Mar, [facility] [place] [facility] [address] [id number] [place] [address]- 5571 Jan, [facility] [place] [facility] [address] [id number] [place] [address]- 0823 Jan, [facility] [place] [facility] [address] [id number] [place] [address]- 8598 Jan, [facility] [place] [facility] [address] [id number] [place] [address]- 6368 Jan, [facility] [place] [facility] [address] [id number] [place] [address]- 1635 Jan, [facility] [place] [facility] [address] [id number] [place] [address]- 9306 Jan, [facility] [place] [facility] [address] [id number] [place] [address]- 8008 Jan, [facility] [place] [facility] [address] [id number] [place] [address]- 0575 Jan, [facility] [place] [facility] [address] [id number] [place] [address]- 6900 Jan, [facility] [place] [facility] [address] [id number] [place] [address]- 2488 Jan, [facility] [place] [facility] [address] [id number] [place] [address]- 7564 Jan, [facility] [place] [facility] [address] [id number] [place] [address]- 2412 Jan, [facility] [place] [facility] [address] [id number] [place] [address]- 5267 Dec, [facility] [place] [facility] [address] [id number] [place] [address]- 5286 Dec, [facility] [place] [facility] [address] [id number] [place] [address]- 1061 Dec, [facility] [place] [facility] [address] [id number] [place] [address]- 0499 Dec, [facility] [place] [facility] [address] [id number] [place] [address]- 2706 Dec, [facility] [place] [facility] [address] [id number] [place] [address]- 7081 Dec, [facility] [place] [facility] [address] [id number] [place] [address]- 2822 Dec, [facility] [place] [facility] [address] [id number], [place] [address]- 3296 Dec, [facility] [place] [facility] [address] [id number] [place] [address]- 6950 Dec, [facility] [place] [facility] [address] [id number] [place] [address] Dec, [facility] [place] [facility] [address] [id number] [place] [address]- 4489 Nov, [facility] [place] [facility] [address] [id number] [place] [address]- 2592 Nov, [facility] [place] [facility] [address] [id number] [place] [address]- 7900 Nov, [facility] [place] [facility] [address] [id number] [place] [address]- 8773 Nov, [facility] [place] [facility] [address] [id number] [place] [address]- 4589 Nov, [facility] [place] [facility] [address] [id number], [place] [address]- 0415 Nov, [facility] [place] [facility] [address] [id number] [place] [address]- 3978 Nov, [facility] [place] [facility] [address] [id number] [place] [address]- 1129 Nov, [facility] [place] [facility] [address] [id number], [place] [address]- 9153 Nov, [facility] [place] [facility] [address] [id number], [place] [address]- 5364 24 Nov, 2013 [facility] [place] [facility] [address] [id number] [place] [address]- 7283 Nov, [facility] [place] [facility] [address] [id number], [place] [address]- 8277 17 Nov, 2013 [facility] [place] [facility] [address] [id number], [place] [address]- 9053 14 Nov, 2013 [facility] [place] [facility] [address] [id number] [place] [address]- 1677 14 Nov, 2013 [facility] [place] [facility] [address] [id number] [place] [address]- 9669 10 Nov, 2013 [facility] [place] [facility] [address] [id number] [place] [address]- 8878 10 Nov, 2013 [facility] [place] [facility] [address] [id number] [place] [address]- 8226 08 Nov, 2013 [facility] [place] [facility] [address] [id number] [place] [address]- 0070 08 Nov, 2013 [facility] [place] [facility] [address] [id number] [place] [address]- 2419 Nov, [facility] [place] [facility] [address] [id number] [place] [address]- 0267 Nov, [facility] [place] [facility] [address] [id number] [place] [address]- 6136 26 Oct, 2013 [facility] [place] [facility] [address] [id number] [place] [address]- 3021 26 Oct, 2013 [facility] [place] [facility] [address] [id number] [place] [address]- 2548 19 Oct, 2013 [facility] [place] [facility] [address] [id number] [place] [address]- 5104 19 Oct, 2013 [facility] [place] [facility] [address] [id number] [place] [address]- 2547 12 Oct, 2013 [facility] [place] [facility] [address] [id number] [place] [address]- 2541 12 Oct, 2013 [facility] [place] [facility] [address] [id number] [place] [address]- 2547 10 Oct, 2013 [facility] [place] [facility] [address] [id number] [place] [address]- 2540 10 Oct, 2013 [facility] [place] [facility] [address] [id number] [place] [address]- 2545 Oct, [facility] [place] [facility] [address] [id number] [place] [address]- 3399 Oct, [facility] [place] [facility] [address] [id number] [place] [address]- 2453 Sep, [facility] [place] [facility] [address] [id number] [place] [address]- 2233 Sep, [facility] [place] [facility] [address] [id number] [place] [address]- 2114 Sep, [facility] [place] [facility] [address] [id number] [place] [address]- 2675 Sep, [facility] [place] [facility] [address] [id number] [place] [address]- 7703 Sep, [facility] [place] [facility] [address] [id number] [place] [address]- 4860 Sep, [facility] [place] [facility] [address] [id number] [place] [address]- 9857 Sep, [facility] [place] [facility] [address] [id number] [place] [address]- 1887 Sep, [facility] [place] [facility] [address] [id number] [place] [address]- 2753 Sep, [facility] [place] [facility] [address] [id number] [place] [address]- 1294 Sep, [facility] [place] [facility] [address] [id number] [place] [address]- 5406 Sep, [facility] [place] [facility] [address] [id number] [place] [address]- 0879 Sep, [facility] [place] [facility] [address] [id number] [place] [address]- 8424 Sep, [facility] [place] [facility] [address] [id number] [place] [address]- 3458 Sep, [facility] [place] [facility] [address] [id number] [place] [address]- 8247 Sep, [facility] [place] [facility] [address] [id number] [place] [address]- 3454 Sep, [facility] [place] [facility] [address] [id number] [place] [address]- 4302 Sep, [facility] [place] [facility] [address] [id number] [place] [address]- 0948 Sep, [facility] [place] [facility] [address] [id number] [place] [address]- 1621 Sep, [facility] [place] [facility] [address] [id number] [place] [address]- 9548 Sep, [facility] [place] [facility] [address] [id number] [place] [address]- 7225 Sep, [facility] [place] [facility] [address] [id number] [place] [address]- 1039 Sep, [facility] [place] [facility] [address] [id number] [place] [address]- 9552 Sep, [facility] [place] [facility] [address] [id number] [place] [address]- 7552 Sep, [facility] [place] [facility] [address] [id number] [place] [address]- 2650 Sep, [facility] [place] [facility] [address] [id number] [place] [address]- 6752 Aug, [facility] [place] [facility] [address] [id number] [place] [address]- 9898 Aug, [facility] [place] [facility] [address] [id number] [place] [address]- 5344 Aug, [facility] [place] [facility] [address] [id number] [place] [address]- 1884 Aug, [facility] [place] [facility] [address] [id number] [place] [address]- 6056 Aug, [facility] [place] [facility] [address] [id number] [place] [address]- 2641 Aug, [facility] [place] [facility] [address] [id number] [place] [address]- 7732 Aug, [facility] [place] [facility] [address] [id number] [place] [address]- 4456 Aug, 2013 [facility] [place] [facility] [address] [id number] [place] [address]- 6582 Aug, 2013 [facility] [place] [facility] [address] [id number] [place] [address]- 1786 Aug, [facility] [place] [facility] [address] [id number] [place] [address]- 8807 Aug, [facility] [place] [facility] [address] [id number] [place] [address]- 4648 Aug, [facility] [place] [facility] [address] [id number] [place] [address]- 8812 Aug, [facility] [place] [facility] [address] [id number] [place] [address]- 7135 Jul, [facility] [place] [facility] [address] [id number] [place] [address]- 7169 Jul, [facility] [place] [facility] [address] [id number] [place] [address]- 4123 Jul, [facility] [place] [facility] [address] [id number] [place] [address]- 2127 Jul, [facility] [place] [facility] [address] [id number] [place] [address]- 9079 Jul, [facility] [place] [facility] [address] [id number] [place] [address]- 6530 Jul, [facility] [place] [facility] [address] [id number] [place] [address]- 6096 Jul, [facility] [place] [facility] [address] [id number] [place] [address]- 3384 June, [facility] [place] [facility] [address] [id number] [place] [address]- 1180 June, [facility] [place] [facility] [address] [id number] [place] [address]- 8752 June, [facility] [place] [facility] [address] [id number] [place] [address]- 6278 June, [facility] [place] [facility] [address] [id number] [place] [address]- 4671 May, [facility] [place] [facility] [address] [id number] [place] [address]- 3902 May, [facility] [place] [facility] [address] [id number] [place] [address]- 5606 May, [facility] [place] [facility] [address] [id number] [place] [address]- 6620 May, [facility] [place] [facility] [address] [id number] [place] [address]- 6109 May, [facility] [place] [facility] [address] [id number] [place] [address]- 6204 May, [facility] [place] [facility] [address] [id number] [place] [address]- 0359 May, [facility] [place] [facility] [address] [id number] [place] [address]- 3756 May, [facility] [place] [facility] [address] [id number] [place] [address]- 9626 May, [facility] [place] [facility] [address] [id number] [place] [address]- 6974 May, [facility] [place] [facility] [address] [id number] [place] [address]- 0216 Apr, [facility] [place] [facility] [address] [id number] [place] [address]- 3048 Apr, [facility] [place] [facility] [address] [id number] [place] [address]- 0946 Apr, [facility] [place] [facility] [address] [id number] [place] [address]- 7166 Apr, [facility] [place] [facility] [address] [id number] [place] [address]- 2416 Apr, [facility] [place] [facility] [address] [id number] [place] [address]- 7706 Apr, [facility] [place] [facility] [address] [id number] [place] [address]- 9046 Apr, [facility] [place] [facility] [address] [id number] [place] [address]- 9396 Apr, [facility] [place] [facility] [address] [id number] [place] [address]- 7566 Apr, [facility] [place] [facility] [address] [id number] [place] [address]- 5219 Apr, [facility] [place] [facility] [address] [id number] [place] [address]- 5448 Mar, [facility] [place] [facility] [address] [id number] [place] [address]- 2457 Mar, [facility] [place] [facility] [address] [facility] [id number] [place] [address]- 1920 Mar, [facility] [place] [facility] [address] [id number] [place] [address]- 7403 Mar, [facility] [place] [facility] [address] [id number] [place] [address]- 2524 Mar, [facility] [place] [facility] [address] [id number] [place] [address]- 9936 Mar, [facility] [place] [facility] [address] [facility] [id number] [place] [address]- 2466 Jan, [facility] [place] [facility] [address] [id number] [place] [address]- 9281 Jan, [facility] [address] [id number] [place] [address]- 8631 Jan, [facility] [place] [facility] [address] [id number] [place] [address]- 4183 Jan, [facility] [place] [facility] [address] [id number] [place] [address]- 2098 Jan, [facility] [place] [facility] [address] [id number] [place] [address]- 2441 Jan, [facility] [address] [id number] [place] [address]- 8345 Jan, [facility] [place] [facility] [address] [id number] [place] [address]- 4707 Jan, [facility] [place] [facility] [address] [id number] [place] [address]- 7392 Jan, [facility] [place] [facility] [address] [id number], [place] [address]- 1463 Dec, [facility] [place] [facility] [address] [id number] [place] [address]- 9592 Dec, [facility] [place] [facility] [address] [id number], [place] [address]- 6845 Dec, [facility] [place] [facility] [address] [id number], [place] [address]- 5415 Dec, [facility] [place] [facility] [address] [id number], [place] [address]- 5464 Dec, [facility] [place] [facility] [address] [id number], [place] [address]- 8777 Dec, [facility] [place] [facility] [address] [id number], [place] [address]- 0866 Dec, [facility] [place] [facility] [address] [id number], [place] [address]- 8429 Dec, [facility] [place] [facility] [address] [id number] [place] [address]- 7379 Dec, [facility] [place] [facility] [address] [id number] [place] [address]- 9313 Dec, [facility] [place] [facility] [address] [id number] [place] [address]- 2222 Dec, [facility] [place] [facility] [address] [id number] [place] [address]- 5555 Nov, [facility] [place] [facility] [address] [id number] [place] [address]- 7247 Nov, [facility] [place] [facility] [address] [id number] [place] [address]- 3606 Nov, [facility] [place] [facility] [address] [id number] [place] [address]- 6033 Nov, [facility] [place] [facility] [address] [id number] [place] [address]- 0016 Nov, [facility] [place] [facility] [address] [id number] [place] [address]- 0831 Oct, [facility] [place] [facility] [address] [id number] [place] [address]- 3623 Oct, [facility] [place] [facility] [address] [facility] [id number] [place] [address]- 1292 Sep, [facility] [place] [facility] [address] [id number] [place] [address]- 3019 Aug, [facility] [place] [facility] [address] [id number] [place] [address]- 6757 Aug, [facility] [place] [facility] [address] [id number] [place] [address]- 6013 Aug, [facility] [place] [facility] [address] [id number] [place] [address]- 8195 Aug, [facility] [place] [facility] [address] [id number] [place] [address]- 0244 Jul, [facility] [place] [facility] [address] [id number] [place] [address]- 7077 Jul, [facility] [address] [id number] [place] [address]- 4804 June, [facility] [address] [id number] [place] [address] June, [facility] [address] [id number] [place] [address] June, [facility] [address] [id number] [place] [address] May, [facility] [address] [id number] [place] [address] May, [facility] [address] [id number] [place] [address] May, [facility] [address] [id number] [place] [address] Apr, [facility] [address] [id number] [place] [address] Apr, [facility] [address] [id number] [place] [address]255 Apr, [facility] [address] [id number] [place] [address] Apr, [facility] [address] [id number] [place] [address] Apr, [facility] [address] [id number] [place] [address] Apr, [facility] [place] [facility] [address] [id number] [place] [address] Apr, [facility] [place] [facility] [address] [id number] [place] [address] Apr, [facility] [address] [id number] [place] [address] 21 Apr, 2012 [facility] [address] [id number] [place] [address]- [address] 20 Apr, 2012 [facility] [address] [id number] [place] [address]286 19 Apr, 2012 [facility] [address] [id number] [place] [address] 07 Apr, 2012 [facility] [address] [id number] [place] [address] 4836 07 Apr, 2012 [facility] [address] [id number] [place] [address] 4838 31 Mar, 2012 [facility] [address] [id number] [place] [address] 23 Mar, 2012 [facility] [address] [id number] [place] [address]- [address]478 16 Mar, 2012 [facility] [address] [id number] [place] [address] Mar, [facility] [address] [id number] [place] [address] Mar, [facility] [address] [id number] [place] [address] 28 Jan, 2012 [facility] [address] [id number] [place] [address] 28 Jan, 2012 [facility] [address] [id number] [place] [address]- 254 22 Jan, 2012 [facility] [address] [id number] [place] [address] 1551 22 Jan, 2012 [facility] [address] [id number] [place] [address]- 4476 14 Jan, 2012 [facility] [address] [id number] [place] [address] 13 Jan, 2012 [facility] [place] [facility] [address] [id number] [place] [address]555 13 Jan, 2012 [facility] [place] [facility] [address] [id number] [place] [address] 27[address] Jan, [facility] [place] [facility] [address] [id number] [place] [address]- [address]26 06 Jan, 2012 [facility] [place] [facility] [address] [id number] [place] [address] Jan, [facility] [place] [facility] [address] [id number] [place] [address] 4183 Jan, [facility] [place] [facility] [address] [id number] [place] [address] Jan, [facility] [place] [facility] [address] [id number] [place] [address] Jan, [facility] [place] [facility] [address] [id number] [place] [address] Jan, [facility] [place] [facility] [address] [id number] [place] [address]99 Dec, [facility] [place] [facility] [address] [id number] [place] [address]- [address]706 26 Jan, 2012 [facility] [place] [facility] [address] [id number] [place] [address] Dec, [facility] [place] [facility] [address] [id number] [place] [address] 8215 19 Jan, 2012 [facility] [place] [facility] [address] [id number] [place] [address]- 8499 15 Jan, 2012 [facility] [place] [facility] [address] [id number] [place] [address] 9266 15 Jan, 2012 [facility] [place] [facility] [address] [id number] [place] [address]- [address]35 14 Jan, 2012 [facility] [place] [facility] [address] [id number] [place] [address]- 8546 14 Jan, 2012 [facility] [place] [facility] [address] [id number] [place] [address]- 3713 14 Jan, 2012 [facility] [place] [facility] [address] [id number] [place] [address]- 4116 14 Jan, 2012 [facility] [place] [facility] [address] [id number] [place] [address]- [address]496 07 Jan, 2012 [facility] [place] [facility] [address] [id number] [place] [address]- [address]384 07 Jan, 2012 [facility] [place] [facility] [address] [id number] [place] [address] 16 Dec, 2011 [facility] [place] [facility] [address] [id number] [place] [address]- 8671 16 Dec, 2011 [facility] [place] [facility] [address] [id number] [place] [address]- 5733 13 Nov, 2011 [facility] [place] [facility] [address] [id number] [place] [address]- 4465 13 Nov, 2011 [facility] [place] [facility] [address] [id number] [place] [address]- 0484 13 Nov, 2011 [facility] [place] [facility] [address] [id number] [place] [address]- 4351 12 Nov, 2011 [facility] [place] [facility] [address] [id number] [place] [address]- 9058 30 Oct, 2011 [facility] [place] [facility] [address] [id number], [place] [address] Sep, [facility] [place] [facility] [address] [id number] [place] [address] Aug, [facility] [place] [facility] [address] [id number] [place] [address]- 7052 13 Aug, 2011 [facility] [place] [facility] [address] [id number] [place] [address]- 6621 Aug, [facility] [place] [facility] [address] [id number] [place] [address]- [address] Aug, [facility] [address] [id number] [place] [address]- 45[address] June, [facility] [address] [id number] [place] [address]- 2546 June, [facility] [address] [id number] [place] [address]- 3316 May, [facility] [address] [id number] [place] [address]- 2546 Apr, [facility] [address] [address] [id number] [place] [address] Apr, [facility] [address] [id number] [place] [address] Apr, [facility] [address] [id number] [place] [address] Apr, [facility] [address] [id number] [place] [address] Apr, [facility] [address] [id number] [place] [address] Apr, [facility] [address] [id number] [place] [address] Mar, [facility] [address] [id number] [place] [address] Mar, [facility] [address] [id number] [place] [address] Mar, [facility] [address] [id number] [place] [address] Jan, [facility] [address] [id number] [place] [address] Jan, [facility] [address] [id number] [place] [address] Jan, [facility] [place] [facility] [address] [id number] [place] [address] Jan, [facility] [place] [facility] [address] [id number] [place] [address] Jan, [facility] [place] [facility] [address] [id number] [place] [address] Jan, [facility] [place] [facility] [address] [id number] [place] [address] Jan, [facility] [place] [facility] [address] [id number] [place] [address] Dec, [facility] [place] [facility] [address] [id number] [place] [address] Dec, [facility] [place] [facility] [address] [id number] [place] [address] Nov, [facility] [place] [facility] [address] [id number] [place] [address] Nov, [facility] [place] [facility] [address] [id number] [place] [address] Nov, [facility] [place] [facility] [address] [id number], [place] [address] Nov, [facility] [place] [facility] [address] [id number], [place] [address] Oct, [facility] [place] [facility] [address] [id number], [place] [address] Sep, [facility] [place] [facility] [address] [id number] [place] [address] Mar, [facility] [place] [facility] [address] [id number] [place] [address] Jan, [facility] [place] [facility] [address] [id number], [place] [address] Dec, [facility] [place] [facility] [address] [id number], [place] [address] 06 Dec, 2009 [facility] [address] [id number] [place] [address] 04 Dec, 2009 [facility] [place] [facility] [address] [id number], [place] [address] Dec, [facility] [address] [facility] [id number] [place] [address] 26 Nov, 2009 [facility] [place] [facility] [address] [id number] [place] [address] 15 Nov, 2009 [facility] [address] [facility] [id number] [place] [address], [place] [address] 14 Nov, 2009 [facility] [place] [facility] [address] [facility] [id number] [place] [address] 14 Nov, 2009 [facility] [address] [id number], [place] [address] 13 Oct, 2009 [facility] [place] [facility] [address] [facility] [id number], [place] [address] Jul, [facility] [address] [id number], [place] [address] June, [facility] [address] [id number], [place] [address] June, [facility] [address] [facility] [id number], [place] [address] 17 Apr, 2009 [facility] [place] [facility] [address] [facility] [id number], [place] [address] Mar, [facility] [place] [facility] [address] [facility] [id number], [place] [address] Jan, [facility] [place] [facility] [address] [facility] [id number], [place] [address] Jan, [facility] [place] [facility] [address] [facility] [id number], [place] [address] Dec, [facility] [place] [facility] [address] [id number], [place] [address] Dec, [facility] [address] [id number], [place] [address] Dec, [facility] [address] [id number] [address] Dec, [facility] [address] [id number] [address] Nov, [facility] [address] [id number], [place] [address] Jul, [facility] [id number], [place] [address] June, IMMUNIZATIONS No Known Immunizations SOCIAL HISTORY Never Assessed REASON FOR VISIT Controlled Medication Refill- Due 12/09 PLAN OF CARE VITAL SIGNS MEDICATIONS Medication Instructions Dosage Frequency Start Date End Date Duration Status Clonazepam 1 MG Orally Once a day as needed for anxiety 1 tablet June, 28 days Active RESULTS No Results PROCEDURES No Known procedures INSTRUCTIONS MEDICATIONS ADMINISTERED No Known Medications MEDICAL (GENERAL) HISTORY Type Description Date Medical History hypertension Medical History sleep apnea-did not tolerate CPAP Medical History oxygen dependent at [facility] Medical History colonic polyps Medical History hyperlipidemia [...] History colonoscopy ([facility]ul[facility])-normal 2005 Surgical History colonoscopy ([facility])-polyp removed 10/2009 Surgical History EGD ([facility]es)-gastritis 10/2009 Surgical History gastric sleeve Surgical History [...]
--- OUTSIDE RECORDS SUMMARY | 2018-02-26 18:45 | XMS REPORT ---
Author Author GRAHAM CHRIS [facility] Address [address] [place] [address] Care Team Providers Care [employer] Superintendent Name Role Phone GRAHAMELLIOTT HANNAHANY Unavailable PROBLEMS Type Condition ICD9-CM Code YFZ97-EC Code Onset Dates Condition Status SNOMED Code Problem Pulmonary asbestosis J61 Active 88673921 Problem Left ventricular diastolic dysfunction I51.9 Active 556310884 Problem Chronic gout, unspecified cause, unspecified site M1A.9XX0 Active 32519759 Problem Renal cyst, left N28.1 Active 41099847 Problem History of weight loss surgery Z98.84 Active 931732448 Problem Nocturnal hypoxia G47.34 Active 503022325 Problem Obstructive sleep apnea syndrome G47.33 Active 35213714 Problem History of diverticulitis Z87.19 Active 979103748553255 Problem Allergic rhinitis, unspecified allergic rhinitis type J30.9 Active 73938955 Problem Erectile dysfunction due to diseases classified elsewhere N52.1 Active 428073153 Problem Acute right-sided low back pain with right-sided sciatica M54.41 Active 439312307 Problem Psoriasis L40.9 Active 1983630 Problem Essential hypertension I10 Active 73755274 Problem Nephrolithiasis N20.0 Active 28001190 Problem Chronic prescription opiate use Z79.899 Active 677811975 Problem 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 Active 98342498 Problem Benign prostatic hyperplasia, presence of lower urinary tract symptoms unspecified, unspecified morphology N40.0 Active 578370428 Problem Moderate episode of recurrent major depressive disorder F33.1 Active 436807882 Problem Age-related osteoporosis without current pathological fracture M81.0 Active 62535395 Problem Low back pain M54.5 Active 359740584 Problem Anxiety F41.9 Active 04615884 Problem Urge incontinence N39.41 Active 850716222 Problem Hyperlipidemia, unspecified E78.5 Active 36421413 Problem Esophageal stricture K22.2 Active 59989642 Problem Cervicalgia M54.2 Active 8745566319589 Problem Primary insomnia F51.01 Active 892210060 ALLERGIES No Information ENCOUNTERS Encounter Location Date Diagnosis [facility] [address] [address]- [address] Dec, [facility] [id number] [place] [address] 95629- 1002 Nov, [facility] [address] 9[address]- 0416 Oct, [facility] [address] 34394- 7142 Oct, [facility] [address] 41457- 1293 Oct, BMI 45.0-49.9, adult Z68.42 ; Essential hypertension I10 ; Hyperlipidemia, unspecified E78.5 ; Anxiety F41.9 ; Obstructive sleep apnea syndrome G47.33 ; Moderate episode of recurrent major depressive disorder F33.1 ; Left ventricular diastolic dysfunction I51.9 ; Acute pain of right shoulder M25.511 ; Pain of left foot M79.672 and Pain in right foot M79.671 [facility] [address] 32428- 5485 Oct, Anxiety F41.9 [facility] [id number] [place] [address] 83864 -4952 Sep, Left foot pain M79.672 [facility] [id number] [place] [address] 43245- 2367 Sep, [facility] [id number] [place] [address] 19105- 6108 Sep, Anxiety F41.9 [facility] [id number] [place] [address] 90371- 5244 Sep, [facility] [id number] [place] [address] 15752- 8038 Aug, [facility] [id number] [address] 2995 Aug, [facility] [id number] [place] [address] 30214- 0453 Aug, Anxiety F41.9 [facility] [id number] [place] [address] 13518- 6750 Aug, [facility] [id number] [place] [address] 26475- 1129 Jul, [facility] [id number] [place] [address] 64398- 7917 Jul, Anxiety F41.9 [facility] [id number] [place] [address] 00734- 9335 June, Anxiety F41.9 [facility] [id number] [place] [address] 73630- 1827 June, [facility] [id number] [place] [address] 24697- 4751 June, Low back pain M54.5 ; Chronic prescription opiate use Z79.899 ; Candidal intertrigo B37.2 ; Urge incontinence N39.41 ; Essential hypertension I10 ; Moderate episode of recurrent major depressive disorder F33.1 ; Age-related osteoporosis without current pathological fracture M81.0 and BMI 45.0-49.9, adult Z68.42 [facility] [id number] [place] [address] 74731- 0453 June, [facility] [id number] [place] [address] 72024- 5067 May, Anxiety F41.9 [facility] [id number] [place] [address] 43541- 2300 May, [facility] [id number] [place] [address] 21972- 6246 May, [facility] [id number] [place] [address] 21441- 1675 Apr, Anxiety F41.9 [facility] [id number] [place] [address] 93519- 8656 Apr, [facility] [id number] [place] [address] 84735- 9615 Apr, Low back pain M54.5 [facility] [id number] [place] [address] 96023- 2977 Apr, [facility] [id number] [place] [address] 98709- 4853 Apr, [facility] [address] 41851- 8102 Apr, Anxiety F41.9 [facility] [id number] [place] [address] 10768- 1816 Apr, Right groin pain R10.31 [facility] [address] 34378- 5448 Mar, [facility] [id number] [place] [address] 36289- 7612 Mar, [facility] [id number] [place] [address] 50322- 5316 Mar, Anxiety F41.9 [facility] [id number] [place] [address] 44837- 0595 Mar, Low back pain M54.5 [facility] [id number] [place] [address] 71839- 4375 Mar, Right groin pain R10.31 ; Low back pain M54.5 and BMI 45.0- 49.9, adult Z68.42 [facility] [id number] [place] [address] 01113- 1751 Mar, [facility] [id number] [place] [address] 31679- 4970 Mar, [facility] [address] [address]- 4952 Mar, [facility] [id number] [place] [address] 34727 -3643 Mar, [facility] [id number] [place] [address] 90631 -2545 Mar, Cough R05 ; Pneumonia of right lower lobe due to infectious organism J18.1 and Abnormal chest x-ray R93.8 [facility] [id number] [place] [address] 23027- 4743 Mar, [facility] [id number] [place] [address] 96052- 3739 Mar, [facility] [id number] [place] [address] 16303- 2618 Jan, Anxiety F41.9 [facility] [id number] [place] [address] 70351- 3853 Jan, [facility] [id number] [place] [address] 21826- 3531 Jan, Moderate episode of recurrent major depressive disorder F33.1 [facility] [id number] [place] [address] 13581- 8021 Jan, Subacromial bursitis of right shoulder joint M75.51 ; Shortness of breath on exertion R06.02 and BMI 45.0-49.9, adult Z68.42 [facility] [address] [place] [address] 82839- 4464 Dec, Anxiety F41.9 [facility] [id number] [place] [address] 03618- 9211 Dec, [facility] [id number] [place] [address] 79311- 0037 Dec, Low back pain M54.5 [facility] [id number] [place] [address] 33679- 9666 Oct, Low back pain M54.5 [facility] [address] [place] [address] 37457- 5916 Sep, [facility] [id number] [place] [address] 27009- 5636 Sep, Erectile dysfunction due to diseases classified elsewhere N52.1 [facility] [id number] [place] [address] 19492- 4939 Sep, Erectile dysfunction due to diseases classified elsewhere N52.1 [facility] [id number] [place] [address] 13380- 2898 Sep, [facility] [id number] [place] [address] 14983- 0072 Sep, Erectile dysfunction due to diseases classified elsewhere N52.1 [facility] [id number] [place] [address] 86799- 1700 Sep, Low back pain M54.5 and Anxiety F41.9 [facility] [id number] [place] [address] 26795 -0111 Aug, Acute allergic rhinitis J30.9 [facility] [id number] [place] [address] 57759- 3539 Aug, [facility] [id number] [place] [address] 87484- 4218 Aug, Anxiety F41.9 [facility] [id number] [place] [address] 95805- 3309 Jul, Low back pain M54.5 ; Chronic prescription opiate use Z79.899 and Essential hypertension I10 [facility] [id number] [place] [address] 56212- 3114 Jul, Anxiety F41.9 and Low back pain M54.5 [facility] [id number] [place] [address] 50377- 4995 June, [facility] [id number] [place] [address] 96430- 2608 June, Anxiety F41.9 [facility] [id number] [place] [address] 33009- 4346 May, Low back pain M54.5 [facility] [id number] [place] [address] 85478- 9137 May, [facility] [id number] [place] [address] 62430- 4601 May, Anxiety F41.9 [facility] [id number] [place] [address] 65558- 2508 Apr, [facility] [id number] [place] [address] 75351- 6161 Apr, Low back pain M54.5 [facility] [id number] [place] [address] 46280- 6408 Apr, Moderate episode of recurrent major depressive disorder F33.1 [facility] [id number] [place] [address] 00780- 2835 Apr, Anxiety F41.9 [facility] [id number] [place] [address] 76843- 6501 Apr, Low back pain M54.5 [facility] [id number] [place] [address] 71104- 8439 15 Apr, 2016 Elevated alkaline phosphatase level R74.8 [facility] [id number] [place] [address] 72177- 6005 10 Apr, 2016 Alkaline phosphatase elevation R74.8 [facility] [id number] [place] [address] 21570- 8426 06 Apr, 2016 Anxiety F41.9 [facility] [id number] [place] [address] 57885- 2114 03 Apr, 2016 Low back pain M54.5 [facility] [id number] [address]- 9908 03 Apr, 2017 History of weight loss surgery Z98.84 ; Encounter for hepatitis C screening test for low risk patient Z11.59 ; History of herpes genitalis Z86.19 ; Essential hypertension I10 ; Hyperlipidemia, unspecified E78.5 ; Exposure to STD Z20.2 and Benign prostatic hyperplasia, presence of lower urinary tract symptoms unspecified, unspecified morphology N40.0 [facility] [id number] [place] [address] 67235- 1856 02 Apr, 2016 [facility] [facility] [id number] [place] [address] 41076- 8767 Mar, [facility] [id number] [place] [address] 27257- 7346 Mar, [facility] [id number] [place] [address] 26772- 0745 Mar, [facility] [id number] [place] [address] 21571- 9409 Mar, Acute right-sided low back pain with right-sided sciatica M54.41 [facility] [id number] [place] [address] 58540- 4740 Mar, Low back pain M54.5 [facility] [address] [place] [address] 43994 -6554 Mar, Muscle strain of chest wall, initial encounter S29.011A ; Muscle strain of right thigh, initial encounter S76.911A and Acute non- recurrent maxillary sinusitis J01.00 [facility] [address] [place] [address] 30446- 0038 Mar, Benign prostatic hyperplasia, presence of lower urinary tract symptoms unspecified, unspecified morphology N40.0 [facility] [address] [place] [address] 66415- 8390 Jan, Low back pain M54.5 [facility] [id number] [place] [address] 53352- 3815 13 Jan, 2016 Low back pain M54.5 ; Essential hypertension I10 ; Hyperlipidemia, unspecified E78.5 ; Anxiety F41.9 ; Moderate episode of recurrent major depressive disorder F33.1 ; Primary insomnia F51.01 ; Exposure to STD Z20.2 ; Encounter for hepatitis C screening test for low risk patient Z11.59 and History of herpes genitalis Z86.19 [facility] [id number] [place] [address] 67147- 5768 17 Jan, 2016 [facility] [address] 16225- 3671 20 Dec, 2015 [place] [address] 01747- 0749 14 Dec, 2015 Anxiety F41.9 ; Cervicalgia M54.2 ; Moderate episode of recurrent major depressive disorder F33.1 and Encounter for immunization Z23 [facility] [id number] [place] [address] 54272- 1128 23 Nov, 2015 [facility] [id number] [place] [address] 45947- 8877 22 Nov, 2015 [facility] [address] 94089- 5052 16 Nov, 2015 [place] [id number] [place] [address] 49081- 6236 09 Nov, 2015 [facility] [id number] [place] [address] 41863- 8487 Sep, [facility] [id number] [place] [address] 47899- 6695 Aug, Low back pain M54.5 ; Anxiety F41.9 ; Primary insomnia F51.01 and Chronic prescription opiate use Z79.899 [facility] [id number] [place] [address] 45555- 6430 Jul, [facility] [id number] [place] [address] 89089- 1220 Jul, [facility] [address] [id number] [place] [address]- 2437 Jul, [facility] [address] [id number] [place] [address]- 1548 Jul, [facility] [address] [id number] [place] [address]- 1598 Jul, [facility] [address] [facility] [id number] [place] [address]- 3801 June, [facility] [address] [id number] [place] [address]- 4174 June, [facility] [address] [id number] [place] [address]- 2545 June, [facility] [address] [facility] [id number] [place] [address]- 2695 June, [facility] [id number] [address]- 4839 May, Preoperative cardiovascular examination Z01.810 [facility] [id number] [address]- 6404 May, [facility] [address] [facility] [id number] [place] [address]- 4665 Apr, [facility] [address], [place] [address]- 3357 Apr, Osteoarthritis of right knee M17.9 [facility] [address] [facility] [id number] [place] [address]- 8203 30 May, 2015 [facility] [address] [facility] [id number] [place] [address]- 0997 16 May, 2015 [facility] [address] [facility] [id number] [place] [address]- 9362 Apr, [facility] [address] [facility] [id number] [place] 5694 Apr, [facility] [id number] [place] [address] 91289- 8774 08 May, 2015 History of excessive cerumen Z78.9 ; Obstructive sleep apnea syndrome G47.33 ; History of diverticulitis Z87.19 and Nephrolithiasis N20.0 [facility] [id number] [place] [address] 73520- 9580 29 Apr, 2015 [facility] [id number] [place] [address] 55512 -7958 Apr, Abdominal pain R10.9 [facility] [id number] [place] [address] 99480- 4954 10 Apr, 2015 [facility] [facility] [address] 16199- 5987 04 Apr, 2015 Osteoarthritis of right knee M17.9 [facility] [address] 36610- 0910 Mar, [facility] [id number] [place] [address] 77707- 6466 15 Mar, 2015 [facility] [facility] [address] 49931- 5798 14 Mar, 2015 [facility] [facility] [id number] [place] [address] 33193- 8322 13 Mar, 2015 [facility] [id number] [place] [address] 98238 -2253 Mar, Pyelonephritis N12 ; Left-sided thoracic back pain M54.6 ; Hematuria, unspecified R31.9 and Kidney stone N20.0 [facility] [facility] [address] 95893- 3423 12 Mar, 2015 History of weight loss surgery Z98.84 [facility] [id number] [place] [address] 16609- 7799 07 Mar, 2015 History of weight loss surgery Z98.84 and Hyperlipidemia, unspecified E78.5 [facility] [id number] [place] [address] 13963- 2818 06 Mar, 2015 Low back pain M54.5 ; Chronic prescription opiate use Z79.899 ; Hyperlipidemia, unspecified E78.5 ; Spasm of back muscles M62.830 and History of weight loss surgery Z98.84 [facility] [id number] [place] [address] 49194- 4220 Jan, [facility] [id number] [place] [address] 82677- 5626 Jan, [facility] [id number] [place] [address] 82545- 9278 Jan, [facility] [id number] [place] [address] 35094- 5419 Dec, [facility] [id number] [place] [address] 56597- 7549 Dec, [facility] [id number] [place] [address] 14781- 8225 Dec, [facility] [id number] [place] [address] 47807- 7773 Nov, [facility] [id number] [place] [address] 82748- 7107 Nov, Obstructive sleep apnea syndrome G47.33 and Pharyngoesophageal dysphagia R13.14 [facility] [id number] [place] [address] 95180- 8609 Nov, [facility] [id number] [place] [address] 93884- 6371 Nov, [facility] [address] 68473- 3414 Nov, [facility] [id number] [place] [address] [id number] 30 Oct, 2014 Dental examination V72.2 [facility] [id number] [place] [address] 99645- 6110 Oct, 2014 [facility] [id number] [place] [address] 93024- 3268 Oct, 2014 [facility] [id number] [place] [address] 65529- 9179 Oct, 2014 [facility] [id number] [place] [address] 15774- 4723 Oct, 2014 [facility] [address] 63548- 8345 Oct, BPH (benign prostatic hyperplasia) 600.00 and Urinary frequency 788.41 [facility] [address] [address]- [address] Oct, 2014 [facility] [id number] [place] [address]78- 0430 Oct, [facility] [id number] [place] [address]70- 1640 Oct, [facility] [id number] [place] [address] 16076- 7492 Sep, Cerumen impaction 380.4 ; Cerumen debris on tympanic membrane 380.4 ; Psoriasis 696.1 and MICKY (secretory otitis media) 381.4 [facility] [id number] [place] [id number] Sep, Dental examination V72.2 [facility] [id number] [place] [address] 06342- 7149 Sep, Fatigue 780.79 ; Irritable bowel syndrome 564.1 ; Overweight 278.02 ; Poor sleep V69.4 ; Shaking spells 781.0 and Broken tooth 873.63 [facility] [id number] [place] [address] 26930- 7493 Sep, [facility] [id number] [place] [phone]- 5528 Sep, [id number] [facility] [id number] [address] Aug, [facility] [id number] [address] Jul, [facility] [address] [facility] [id number] [place] [address]- [address]26 Jul, [facility] [id number] [address] 6993 Jul, [facility] [address] [facility] [id number] [place] [address] Jul, [facility] [id number] [address] June, Arthritis of knee, right 716.96 [facility] [id number] [place] [address] June, [facility] [id number] [address] June, Elevated blood pressure reading without diagnosis of hypertension 796.2 [facility] [id number] [place] [address] June, [facility] [id number] [address] June, [facility] [id number], [place] [address] June, [facility] [id number] [address] June, [facility] [address] [id number] [address] May, [facility] [id number] [id number] May, [facility] [id number], [place] [address] Apr, [facility] [place] [facility] [address] [id number] [place] [address] 30 Apr, 2014 [facility] [place] [facility] [address] [address] [id number] [place] [address] Apr, [facility] [place] [facility] [address] [id number] [place] [address] 7428 Apr, [facility] [place] [facility] [address] [id number] [place] [address] 9379 Apr, [facility] [place] [facility] [address] [id number] [place] [address] 3620 Apr, [facility] [place] [facility] [address] [id number] [place] [address] 3310 Apr, [facility] [place] [facility] [address] [id number] [place] [address]- 5604 Apr, [facility] [place] [facility] [address] [id number] [place] [address]- 8780 Apr, [facility] [place] [facility] [address] [id number] [place] [address]- 4481 Apr, [facility] [place] [facility] [address] [id number] [place] [address]- 1518 Apr, [facility] [place] [facility] [address] [id number] [place] [address]- 5966 Apr, [facility] [place] [facility] [address] [id number] [place] [address]- 0712 Apr, 2014 [facility] [place] [facility] [address] [id number] [place] [address] 4974 Apr, 2014 [facility] [place] [facility] [address] [id number] [place] [address]- 8830 Apr, 2014 [facility] [place] [facility] [address] [id number] [place] [address]- 5757 Apr, 2014 [facility] [place] [facility] [address] [id number] [place] [address]- 1904 20 Apr, 2014 [facility] [place] [facility] [address] [id number] [place] [address]- 2593 20 Apr, 2014 [facility] [place] [facility] [address] [facility] [id number] [place] [address]- 3036 18 Apr, 2014 [facility] [place] [facility] [address] [facility] [id number] [place] [address]- 7689 18 Apr, 2014 [facility] [place] [facility] [address] [facility] [id number] [place] [address]- 5059 13 Apr, 2014 [facility] [place] [facility] [address] [facility] [id number] [place] [address]- 5219 13 Apr, 2014 [facility] [place] [facility] [address] [id number] [address] 5306 13 Apr, 2014 [facility] [place] [facility] [address] [id number] [address]- 9349 13 Apr, 2014 [facility] [place] [facility] [address] [facility] [id number] [place] [address]- 1094 12 Apr, 2014 [facility] [place] [facility] [address] [id number] [address]- 7310 12 Apr, 2014 [facility] [place] [facility] [address] [id number], [place] [address]- 9985 06 Apr, 2014 [facility] [place] [facility] [address] [facility] [id number], [place] [address]- 7080 Apr, 2014 [facility] [place] [facility] [address] [facility] [id number] [place] [address]- 9956 05 Apr, 2014 [facility] [place] [facility] [address] [facility] [id number] [place] [address]- 8381 Apr, 2014 [facility] [place] [facility] [address] [facility] [id number], [place] [address]- 0413 05 Apr, 2014 [facility] [place] [facility] [id number], [place] [address]- 2546 Apr, [facility] [address] [id number] [place] [address]- 8792 Apr, [facility] [place] [facility] [address] [id number] [place] [address]- 1325 Mar, [facility] [place] [facility] [address] [id number] [place] [address]- 7387 Mar, [facility] [place] [facility] [address] [id number] [place] [address]- 6949 Mar, [facility] [place] [facility] [address] [id number] [place] [address]- 3177 Mar, [facility] [place] [facility] [address] [id number] [place] [address]- 7234 Mar, [facility] [place] [facility] [address] [id number] [place] [address]- 9443 Mar, [facility] [place] [facility] [address] [id number] [place] [address]- 4943 Mar, [facility] [place] [facility] [address] [id number] [place] [address]- 8815 Mar, [facility] [place] [facility] [address] [id number] [place] [address]- 8872 Mar, [facility] [place] [facility] [address] [id number], [place] [address]- 1463 Mar, [facility] [place] [facility] [address] [id number] [place] [address]- 2825 Jan, [facility] [place] [facility] [address] [id number] [place] [address]- 3187 Jan, [facility] [place] [facility] [address] [id number] [place] [address]- 4925 Jan, [facility] [place] [facility] [address] [id number] [place] [address] Jan, [facility] [place] [facility] [address] [id number] [place] [address]- 4305 Jan, [facility] [place] [facility] [address] [id number] [place] [address]- 8639 Jan, [facility] [place] [facility] [address] [id number] [place] [address]- 4140 Jan, [facility] [place] [facility] [address] [id number] [place] [address]- 6618 Jan, [facility] [place] [facility] [address] [id number] [place] [address]- 7164 Jan, [facility] [place] [facility] [address] [id number] [place] [address]- 7551 Jan, [facility] [place] [facility] [address] [id number] [place] [address]- 7863 Jan, [facility] [place] [facility] [address] [id number] [place] [address]- 3665 Jan, [facility] [place] [facility] [address] [id number] [place] [address]- 6056 Dec, [facility] [place] [facility] [address] [id number] [place] [address]- 7661 Dec, [facility] [place] [facility] [address] [id number] [place] [address]- 1403 Dec, [facility] [place] [facility] [address] [id number] [place] [address]- 1636 Dec, [facility] [place] [facility] [address] [id number] [place] [address]- 9768 Dec, [facility] [place] [facility] [address] [id number] [place] [address]- 4351 Dec, [facility] [place] [facility] [address] [id number] [place] [address]4 Dec, [facility] [place] [facility] [address] [id number] [place] [address]- 4227 Dec, [facility] [place] [facility] [address] [id number] [place] [address]- 6226 Dec, [facility] [place] [facility] [address] [id number] [place] [address]- 9924 Dec, [facility] [place] [facility] [address] [id number] [place] [address]- 2239 Nov, [facility] [place] [facility] [address] [id number] [place] [address]- 0104 Nov, [facility] [place] [facility] [address] [id number] [place] [address]- 2440 Nov, [facility] [place] [facility] [address] [id number] [place] [address]- 3382 Nov, [facility] [place] [facility] [address] [id number] [place] [address]- 2675 Nov, [facility] [place] [facility] [address] [id number] [place] [address]- 4189 Nov, [facility] [place] [facility] [address] [id number] [place] [address]- 1878 Nov, [facility] [place] [facility] [address] [id number], [place] [address]- 9016 Nov, [facility] [place] [facility] [address] [id number], [place] [address]- 8756 Nov, [facility] [place] [facility] [address] [id number], [place] [address]- 4682 24 Nov, 2013 [facility] [place] [facility] [address] [id number] [place] [address]- 2838 Nov, [facility] [place] [facility] [address] [id number], [place] [address]- 6549 Nov, [facility] [place] [facility] [address] [id number] [place] [address]- 0154 14 Nov, 2013 [facility] [place] [facility] [address] [id number] [place] [address]- 7208 14 Nov, 2013 [facility] [place] [facility] [address] [id number] [place] [address]- 0359 10 Nov, 2013 [facility] [place] [facility] [address] [id number] [place] [address]- 0672 10 Nov, 2013 [facility] [place] [facility] [address] [id number] [place] [address]- 1559 08 Nov, 2013 [facility] [place] [facility] [address] [id number] [place] [address]- 4406 08 Nov, 2013 [facility] [place] [facility] [address] [id number] [place] [address]- 6018 Nov, [facility] [place] [facility] [address] [id number] [place] [address]- 1921 Nov, [facility] [place] [facility] [address] [id number] [place] [address]- 4752 26 Oct, 2013 [facility] [place] [facility] [address] [id number] [place] [address]- 7723 26 Oct, 2013 [facility] [place] [facility] [address] [id number] [place] [address]- 9188 19 Oct, 2013 [facility] [place] [facility] [address] [id number] [place] [address]- 5122 19 Oct, 2013 [facility] [place] [facility] [address] [id number] [place] [address]- 6332 12 Oct, 2013 [facility] [place] [facility] [address] [id number] [place] [address]- 2542 12 Oct, 2013 [facility] [place] [facility] [address] [id number] [place] [address]- 7126 10 Oct, 2013 [facility] [place] [facility] [address] [id number] [place] [address]- 2541 10 Oct, 2013 [facility] [place] [facility] [address] [id number] [place] [address]- 4261 08 Oct2013 [facility] [place] [facility] [address] [id number] [place] [address]- 5124 Oct, [facility] [place] [facility] [address] [id number] [place] [address]- 2307 Sep, [facility] [place] [facility] [address] [id number] [place] [address]- 7031 Sep, [facility] [place] [facility] [address] [id number] [place] [address]- 8209 Sep, [facility] [place] [facility] [address] [id number] [place] [address]- 6362 Sep, [facility] [place] [facility] [address] [id number] [place] [address]- 8466 Sep, [facility] [place] [facility] [address] [id number] [place] [address]- 4543 Sep, [facility] [place] [facility] [address] [id number] [place] [address]- 9739 Sep, [facility] [place] [facility] [address] [id number] [place] [address]- 1400 Sep, [facility] [place] [facility] [address] [id number] [place] [address]- 9356 Sep, [facility] [place] [facility] [address] [id number] [place] [address]- 3736 Sep, [facility] [place] [facility] [address] [id number] [place] [address]- 5997 Sep, [facility] [place] [facility] [address] [id number] [place] [address]- 9100 Sep, [facility] [place] [facility] [address] [id number] [place] [address]- 9186 Sep, [facility] [place] [facility] [address] [id number] [place] [address]- 7449 Sep, [facility] [place] [facility] [address] [id number] [place] [address]- 2921 Sep, [facility] [place] [facility] [address] [id number] [place] [address]- 0565 Sep, [facility] [place] [facility] [address] [id number] [place] [address]- 4147 Sep, [facility] [place] [facility] [address] [id number] [place] [address]- 9030 Sep, [facility] [place] [facility] [address] [id number] [place] [address]- 9875 Sep, [facility] [place] [facility] [address] [id number] [place] [address]- 4695 Sep, [facility] [place] [facility] [address] [id number] [place] [address]- 3180 Sep, [facility] [place] [facility] [address] [id number] [place] [address]- 9065 Sep, [facility] [place] [facility] [address] [id number] [place] [address]- 5082 Sep, [facility] [place] [facility] [address] [id number] [place] [address]- 4796 Sep, [facility] [place] [facility] [address] [id number] [place] [address]- 5694 Sep, [facility] [place] [facility] [address] [id number] [place] [address]- 6731 Aug, [facility] [place] [facility] [address] [id number] [place] [address]- 1416 Aug, [facility] [place] [facility] [address] [id number] [place] [address]- 7983 Aug, [facility] [place] [facility] [address] [id number] [place] [address]- 6024 Aug, [facility] [place] [facility] [address] [id number] [place] [address]- 5266 Aug, [facility] [place] [facility] [address] [id number] [place] [address]- 8438 Aug, [facility] [place] [facility] [address] [id number] [place] [address]- 3111 Aug, [facility] [place] [facility] [address] [id number] [place] [address]- 6021 Aug, [facility] [place] [facility] [address] [id number] [place] [address]- 7066 Aug, [facility] [place] [facility] [address] [id number] [place] [address]- 8693 Aug, [facility] [place] [facility] [address] [id number] [place] [address]- 8941 Aug, [facility] [place] [facility] [address] [id number] [place] [address]- 1939 Aug, [facility] [place] [facility] [address] [id number] [place] [address]- 0424 Aug, [facility] [place] [facility] [address] [id number] [place] [address]- 7880 Jul, [facility] [place] [facility] [address] [id number] [place] [address]- 0897 Jul, [facility] [place] [facility] [address] [id number] [place] [address]- 7361 Jul, [facility] [place] [facility] [address] [id number] [place] [address]- 3970 Jul, [facility] [place] [facility] [address] [id number] [place] [address]- 9662 Jul, [facility] [place] [facility] [address] [id number] [place] [address]- 0778 Jul, [facility] [place] [facility] [address] [id number] [place] [address]- 4164 Jul, [facility] [place] [facility] [address] [id number] [place] [address]- 4464 June, [facility] [place] [facility] [address] [id number] [place] [address]- 1762 June, [facility] [place] [facility] [address] [id number] [place] [address]- 7946 June, [facility] [place] [facility] [address] [id number] [place] [address]- 5907 June, [facility] [place] [facility] [address] [id number] [place] [address]- 7379 May, [facility] [place] [facility] [address] [id number] [place] [address]- 1513 May, [facility] [place] [facility] [address] [id number] [place] [address]- 0356 May, [facility] [place] [facility] [address] [id number] [place] [address]- 7670 May, [facility] [place] [facility] [address] [id number] [place] [address]- 3814 May, [facility] [place] [facility] [address] [id number] [place] [address]- 4923 May, [facility] [place] [facility] [address] [id number] [place] [address]- 3596 May, [facility] [place] [facility] [address] [id number] [place] [address]- 9385 May, [facility] [place] [facility] [address] [id number] [place] [address]- 0458 May, [facility] [place] [facility] [address] [id number] [place] [address]- 6327 May, [facility] [place] [facility] [address] [id number] [place] [address]- 0370 Apr, [facility] [place] [facility] [address] [id number] [place] [address]- 1178 Apr, [facility] [place] [facility] [address] [id number] [place] [address]- 9013 Apr, [facility] [place] [facility] [address] [id number] [place] [address]- 9406 Apr, [facility] [place] [facility] [address] [id number] [place] [address]- 1166 Apr, [facility] [place] [facility] [address] [id number] [place] [address]- 7596 Apr, [facility] [place] [facility] [address] [id number] [place] [address]- 2768 Apr, [facility] [place] [facility] [address] [id number] [place] [address]- 3006 Apr, [facility] [place] [facility] [address] [id number] [place] [address]- 1579 Apr, [facility] [place] [facility] [address] [id number] [place] [address]- 6460 Apr, [facility] [place] [facility] [address] [id number] [place] [address]- 6717 Mar, [facility] [place] [facility] [address] [id number] [place] [address]- 2483 Mar, [facility] [place] [facility] [address] [facility] [id number] [place] [address]- 1481 Mar, [facility] [place] [facility] [address] [id number] [place] [address]- 1797 Mar, [facility] [place] [facility] [address] [id number] [place] [address]- 7912 Mar, [facility] [place] [facility] [address] [id number] [place] [address]- 1562 Mar, [facility] [place] [facility] [address] [facility] [id number] [place] [address]- 4138 Jan, [facility] [place] [facility] [address] [id number] [place] [address]- 9824 Jan, [facility] [place] [facility] [address] [id number] [place] [address]- 2111 Jan, [facility] [address] [id number] [place] [address]- 7827 Jan, [facility] [address] [id number] [place] [address]- 3540 Jan, [facility] [address] [id number] [place] [address]- 2152 Jan, [facility] [address] [id number] [place] [address]- 2546 Jan, [facility] [address] [id number] [place] [address]- 3864 Jan, [facility] [address] [id number] [place] [address]- 0071 Jan, [facility] [address] [id number] [place] [address]- 4313 Dec, [facility] [address] [id number] [place] [address]- 7506 Dec, [facility] [address] [id number] [place] [address]- 6464 Dec, [facility] [address] [id number] [place] [address]- 3417 Dec, [facility] [address] [id number], [place] [address]- 4069 Dec, [facility] [place] [facility] [address] [id number] [place] [address]- 5002 Dec, [facility] [place] [facility] [address] [id number] [place] [address]- 5670 Dec, [facility] [place] [facility] [address] [id number], [place] [address]- 3944 Dec, [facility] [place] [facility] [address] [id number], [place] [address]- 9604 Dec, [facility] [place] [facility] [address] [id number] [place] [address]- 4771 Dec, [facility] [place] [facility] [address] [id number] [place] [address]- 7538 Dec, [facility] [place] [facility] [address] [id number] [place] [address]- 0610 Nov, [facility] [place] [facility] [address] [id number] [place] [address]- 5822 Nov, [facility] [place] [facility] [address] [id number] [place] 7264 Nov, [facility] [place] [facility] [address] [id number] [place] [address] Nov, [facility] [place] [facility] [address] [id number] [place] [address] Nov, [facility] [place] [facility] [address] [id number] [place] [address] Oct, [facility] [place] [facility] [address] [id number] [place] [address] Oct, [facility] [place] [facility] [address] [id number] [place] [address] Sep, [facility] [place] [facility] [address] [id number], [place] [address] Aug, [facility] [place] [facility] [address] [id number] [place] [address] Aug, [facility] [place] [facility] [address] [id number] [place] [address] Aug, [facility] [place] [facility] [address] [id number] [place] [address] Aug, [facility] [place] [facility] [address] [id number] [place] [address] Jul, [facility] [place] [facility] [address] [id number] [place] [address] Jul, [facility] [address] [id number] [place] [address] June, [facility] [address] [id number] [place] [address] June, [facility] [address] [id number] [place] [address] June, [facility] [address] [id number] [place] [address] May, [facility] [address] [id number] [place] [address] May, [facility] [address] [id number] [place] [address] May, [facility] [address] [id number] [place] [address] Apr, [facility] [address] [id number] [place] [address] 18 Apr, 2012 [facility] [address] [id number] [place] [address] 15 Apr, 2012 [facility] [address] [id number] [place] [address] 18[address] 14 Apr, 2012 [facility] [address] [id number] [place] [address]207 Apr, [facility] [address] [id number] [place] [address] 7965 Apr, [facility] [address] [id number] [place] [address] Apr, [facility] [address] [id number] [place] [address] Apr, [facility] [address] [id number] [place] [address] Apr, [facility] [address] [id number] [place] [address]- [address] 20 Apr, 2012 [facility] [address] [id number] [place] [address]656 19 Apr, 2012 [facility] [address] [id number] [place] [address]- [address] 07 Apr, 2012 [facility] [place] [facility] [address] [id number] [place] [address] 8[address] 07 Apr, 2012 [facility] [address] [id number] [place] [address] Mar, [facility] [address] [id number] [place] [address]- [address]297 23 Mar, 2012 [facility] [address] [id number] [place] [address]288 16 Mar, 2012 [facility] [address] [id number] [place] [address] Mar, [facility] [address] [id number] [place] [address]- [address]27 Mar, [facility] [address] [id number] [place] [address]703 28 Jan, 2012 [facility] [address] [id number] [place] [address] 28 Jan, 2012 [facility] [place] [facility] [address] [id number] [place] [address]- [address]44 22 Jan, 2012 [facility] [place] [facility] [address] [id number] [place] [address]- 1185 22 Jan, 2012 [facility] [place] [facility] [address] [id number] [place] [address]- [address] 14 Jan, 2012 [facility] [place] [facility] [address] [id number] [place] [address]- 4948 13 Jan, 2012 [facility] [place] [facility] [address] [id number] [place] [address]- 4741 13 Jan, 2012 [facility] [address] [id number] [place] [address]- 4216 11 Jan, 2012 [facility] [place] [facility] [address] [id number] [place] [address] 06 Jan, 2012 [facility] [address] [id number] [place] [address]- [address]886 06 Jan, 2012 [facility] [place] [facility] [address] [id number] [place] [address]- 5256 04 Jan, 2012 [facility] [address] [id number] [place] [address] Jan, [facility] [address] [id number] [place] [address] Jan, [facility] [address] [id number] [place] [address] Jan, [facility] [address] [id number] [place] [address]- [address] 26 Jan, 2012 [facility] [place] [facility] [address] [id number] [place] [address]- 8616 26 Jan, 2012 [facility] [address] [id number] [place] [address]- [address]296 19 Jan, 2012 [facility] [place] [facility] [address] [id number] [place] [address]- [address]200 19 Jan, 2012 [facility] [place] [facility] [address] [id number] [place] [address]- 2546 15 Jan, 2012 [facility] [place] [facility] [address] [id number] [place] [address]- 8136 15 Jan, 2012 [facility] [place] [facility] [address] [id number] [place] [address] 14 Jan, 2012 [facility] [place] [facility] [address] [id number] [place] [address]- 9072 14 Jan, 2012 [facility] [place] [facility] [address] [id number] [place] [address]- 8910 14 Jan, 2012 [facility] [place] [facility] [address] [id number] [place] [address]- 6820 14 Jan, 2012 [facility] [place] [facility] [address] [id number] [place] [address]- 7228 07 Jan, 2012 [facility] [place] [facility] [address] [id number] [place] [address]- 2284 07 Jan, 2012 [facility] [place] [facility] [address] [id number] [place] [address]- 8871 16 Dec, 2011 [facility] [place] [facility] [address] [id number] [place] [address]- 9358 16 Dec, 2011 [facility] [place] [facility] [address] [id number] [place] [address]- 6[address] 13 Nov, 2011 [facility] [place] [facility] [address] [id number] [place] [address]- 7520 13 Nov, 2011 [facility] [place] [facility] [address] [id number] [place] [address]- 6629 13 Nov, 2011 [facility] [place] [facility] [address] [id number] [place] [address]- 1818 12 Nov, 2011 [facility] [place] [facility] [address] [id number] [place] [address]- [address] Sep, [facility] [place] [facility] [address] [id number] [place] [address]- 9[address] Sep, [facility] [place] [facility] [address] [id number] [place] [address]- 350[address] Aug, [facility] [place] [facility] [address] [id number] [place] [address] 13 Aug, 2011 [facility] [place] [facility] [address] [id number] [place] [address] Aug, [facility] [place] [facility] [address] [id number] [place] [address] Aug, [facility] [address] [id number] [place] [address] June, [facility] [address] [id number] [place] [address] June, [facility] [address] [id number] [place] [address] May, [facility] [place] [facility] [address] [id number] [place] [address] Apr, [facility] [address] [id number] [place] [address] Apr, [facility] [place] [facility] [address] [id number] [place] [address] Apr, [facility] [address] [id number] [place] [address] Apr, [facility] [place] [facility] [address] [id number] [place] [address] Apr, [facility] [address] [id number] [place] [address] Apr, [facility] [address] [id number] [place] [address] Mar, [facility] [address] [id number] [place] [address] Mar, [facility] [place] [facility] [address] [id number] [place] [address] Mar, [facility] [place] [facility] [address] [id number] [place] [address] Jan, [facility] [place] [facility] [address] [id number] [place] [address] Jan, [facility] [address] [id number] [place] [address] Jan, [facility] [place] [facility] [address] [id number] [place] [address] Jan, [facility] [place] [facility] [address] [id number] [place] [address] Jan, [facility] [place] [facility] [address] [id number] [place] [address] Jan, [facility] [place] [facility] [address] [id number] [place] [address] Jan, [facility] [place] [facility] [address] [id number] [place] [address] Dec, [facility] [place] [facility] [address] [id number] [place] [address] Dec, [facility] [place] [facility] [address] [id number] [place] [address] Nov, [facility] [place] [facility] [address] [id number] [place] [address] Nov, [facility] [place] [facility] [address] [id number] [place] [address] Nov, [facility] [place] [facility] [address] [id number] [place] [address] Nov, [facility] [place] [facility] [address] [id number] [place] [address] Oct, [facility] [place] [facility] [address] [id number] [place] [address] Sep, [facility] [place] [facility] [address] [id number] [place] [address] Mar, [facility] [place] [facility] [address] [id number] [place] [address] Jan, [facility] [place] [facility] [address] [id number] [place] [address] Dec, [facility] [place] [facility] [address] [id number], [place] [address] 06 Dec, 2009 [facility] [address] [id number] [place] [address] 04 Dec, 2009 [facility] [place] [facility] [address] [id number] [place] [address]- [address] Dec, [facility] [place] [facility] [address] [id number] [place] [address] 26 Nov, 2009 [facility] [place] [facility] [address] [id number] [place] [address] 15 Nov, 2009 [facility] [address] [id number] [place] [address] 14 Nov, 2009 [facility] [place] [facility] [address] [id number] [place] [address]- [address] 14 Nov, 2009 [facility] [place] [facility] [address] [id number] [place] [address] 13 Oct, 2009 [facility] [place] [facility] [address] [id number] [place] [address] 17 Jul, 2009 [facility] [address] [id number] [place] [address] June, [facility] [place] [facility] [address] [id number] [place] [address]- [address] June, [facility] [place] [facility] [address] [id number], [place] [address] Apr, [facility] [place] [facility] [address] [id number], [place] [address] Mar, [facility] [place] [facility] [address] [id number] [place] [address]- [address] Jan, [facility] [place] [facility] [address] [id number] [address] Jan, [facility] [place] [facility] [address] [id number] [place] [address] Dec, [facility] [place] [facility] [address] [id number], [place] [address] Dec, [facility] [address] [id number], [place] [address] Dec, [facility] [id number], [place] [address] Dec, [facility] [id number], [place] [address] Nov, [facility] [id number], [place] [address] Jul, [facility] [id number] [place] [address] June, IMMUNIZATIONS No Known Immunizations SOCIAL HISTORY Never Assessed REASON FOR VISIT Refill request / Tizanidine and Diclofenac PLAN OF CARE VITAL SIGNS MEDICATIONS Medication Instructions Dosage Frequency Start Date End Date Duration Status Endocet 10-325 MG Orally every 4-6 hours 1 tablet as needed Oct, 28 days Active Tizanidine HCl 4 MG TAKE 1 TABLET BY MOUTH THREE TIMES DAILY TO FOUR TIMES DAILY NEEDED 23 Active RESULTS No Results PROCEDURES No Known procedures INSTRUCTIONS MEDICATIONS ADMINISTERED No Known Medications MEDICAL (GENERAL) HISTORY Type Description Date Medical History hypertension Medical History sleep apnea-did not tolerate CPAP Medical History oxygen dependent at [facility] Medical History colonic polyps [...]
--- OUTSIDE RECORDS SUMMARY | 2018-02-26 18:46 | XMS REPORT ---
Author Author GRAHAM CHRIS 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 Name Role Phone GRAHAMELLIOTT HANNAHANY Unavailable PROBLEMS Type Condition ICD9-CM Code URV01-ZK Code Onset Dates Condition Status SNOMED Code Problem Pulmonary asbestosis J61 Active 67993561 Problem Left ventricular diastolic dysfunction I51.9 Active 456219613 Problem Chronic gout, unspecified cause, unspecified site [id number].[id number] Active 90314320 Problem Renal cyst, left N28.1 Active 41175910 Problem History of weight loss surgery Z98.84 Active 462635566 Problem Nocturnal hypoxia G47.34 Active 994319372 Problem Obstructive sleep apnea syndrome G47.33 Active 62617827 Problem History of diverticulitis Z87.19 Active [id number] Problem Allergic rhinitis, unspecified allergic rhinitis type J30.9 Active 88708067 Problem Erectile dysfunction due to diseases classified elsewhere N52.1 Active 671807953 Problem Acute right-sided low back pain with right-sided sciatica M54.41 Active 669083525 Problem Psoriasis L40.9 Active 3420307 Problem Essential hypertension I10 Active 31808735 Problem Nephrolithiasis N20.0 Active 00138926 Problem Chronic prescription opiate use Z79.899 Active 631982688 Problem 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 Active 09260800 Problem Benign prostatic hyperplasia, presence of lower urinary tract symptoms unspecified, unspecified morphology N40.0 Active 349119321 Problem Moderate episode of recurrent major depressive disorder F33.1 Active 131499906 Problem Age-related osteoporosis without current pathological fracture M81.0 Active 86626778 Problem Low back pain M54.5 Active 869779812 Problem Anxiety F41.9 Active 87204084 Problem Urge incontinence N39.41 Active 641590410 Problem Hyperlipidemia, unspecified E78.5 Active 07326147 Problem Esophageal stricture K22.2 Active 10486724 Problem Cervicalgia M54.2 Active 6494200601187 Problem Primary insomnia F51.01 Active 560284591 ALLERGIES Substance Reaction Event Type Date Status Sulfamethoxazole-Trimethoprim nausea Drug Allergy Oct, Active Penicillin V Potassium rash Drug Allergy Oct, Active Benazepril HCl hypotension Drug Allergy Oct, Active ENCOUNTERS Encounter Location Date Diagnosis [facility] [address] [address] Dec, [facility] [address] [address] Nov, [facility] [address] [address] Oct, [facility] [address] [address]- [address] Oct, [facility] [address] [address]- [address] Oct, BMI 45.0-49.9, adult Z68.42 ; Essential hypertension I10 ; Hyperlipidemia, unspecified E78.5 ; Anxiety F41.9 ; Obstructive sleep apnea syndrome G47.33 ; Moderate episode of recurrent major depressive disorder F33.1 ; Left ventricular diastolic dysfunction I51.9 ; Acute pain of right shoulder M25.511 ; Pain of left foot M79.672 and Pain in right foot M79.671 [facility] [id number] [place] [address] 15031- 6744 Oct, Anxiety F41.9 [facility] [id number] [place] [address] 07542 -5062 Sep, Left foot pain M79.672 [facility] [id number] [place] [address] 93598- 9180 Sep, [facility] [id number] [place] [address] 20370- 5298 Sep, Anxiety F41.9 [facility] [address] [address]- [address] Sep, [facility] [address] [address] Aug, [facility] [id number] [place] [address] 96741- 3368 Aug, [facility] [address] [place] [address] 81987- 4701 Aug, Anxiety F41.9 [facility] [id number] [place] [address] 16425- 8472 Aug, [facility] [id number] [place] [address] 32638- 2485 Jul, [facility] [id number] [place] [address] 99031- 7181 Jul, Anxiety F41.9 [facility] [id number] [place] [address] 65477- 3286 June, Anxiety F41.9 [facility] [id number] [place] [address] 10269- 3936 June, [facility] [id number] [place] [address] 58903- 5901 June, Low back pain M54.5 ; Chronic prescription opiate use Z79.899 ; Candidal intertrigo B37.2 ; Urge incontinence N39.41 ; Essential hypertension I10 ; Moderate episode of recurrent major depressive disorder F33.1 ; Age-related osteoporosis without current pathological fracture M81.0 and BMI 45.0-49.9, adult Z68.42 [facility] [address], [place] [address] June, [facility] [id number] [place] [address] 68427- 6692 May, Anxiety F41.9 [facility] [id number] [place] [address] 19369- 0360 May, [facility] [id number] [place] [address] 50420- 4218 May, [facility] [id number] [place] [address] 66505- 4934 Apr, Anxiety F41.9 [facility] [id number] [place] [address] 75532- 1716 Apr, [facility] [id number] [place] [address] 25528- 5530 Apr, Low back pain M54.5 [facility] [address] [address]- 1635 Apr, [facility] [id number] [place] [address] 03277- 7383 Apr, [facility] [id number] [place] [address] 07223- 0668 Apr, Anxiety F41.9 [facility] [id number] [place] [address] 64164- 7575 Apr, Right groin pain R10.31 [facility] [id number] [place] [address] 85285- 7311 Mar, [facility] [id number] [place] [address] 72866- 1230 Mar, [facility] [id number] [place] [address] 97365- 8030 Mar, Anxiety F41.9 [facility] [id number] [place] [address] 25609- 6770 Mar, Low back pain M54.5 [facility] [id number] [place] [address] 53423- 8673 Mar, Right groin pain R10.31 ; Low back pain M54.5 and BMI 45.0- 49.9, adult Z68.42 [facility] [id number] [place] [address] 05134- 1586 Mar, [facility] [id number] [place] [address] 43788- 7500 Mar, [facility] [id number] [place] [address] 79145- 6964 Mar, [facility] [id number] [place] [address] 11998 -7949 Mar, [facility] [id number] [place] [address] 13434 -5133 Mar, Cough R05 ; Pneumonia of right lower lobe due to infectious organism J18.1 and Abnormal chest x-ray R93.8 [place] [address] 19281- 3893 Mar, [place] [address] 32234- 7322 Mar, [place] [address] 07706- 8247 Jan, Anxiety F41.9 [place] [id number] [place] [address] 71490- 6726 Jan, [place] [id number] [place] [address] 83581- 8183 Jan, Moderate episode of recurrent major depressive disorder F33.1 [place] [id number] [place] [address] 53324- 4612 Jan, Subacromial bursitis of right shoulder joint M75.51 ; Shortness of breath on exertion R06.02 and BMI 45.0-49.9, adult Z68.42 [place] [id number] [place] [address] 36818- 5039 Dec, Anxiety F41.9 [place] [id number] [place] [address] 54074- 2846 Dec, [facility] [address] 01242- 8177 Dec, Low back pain M54.5 [facility] [address] [place] [address] 38675- 1535 Oct, Low back pain M54.5 [facility] [id number] [place] [address] 67382- 9080 Sep, [facility] [id number] [place] [address] 22555- 6048 Sep, Erectile dysfunction due to diseases classified elsewhere N52.1 [facility] [id number] [place] [address] 89551- 0646 Sep, Erectile dysfunction due to diseases classified elsewhere N52.1 [facility] [id number] [place] [address] 70836- 4469 Sep, [facility] [id number] [place] [address] 51646- 0146 Sep, Erectile dysfunction due to diseases classified elsewhere N52.1 [facility] [id number] [place] [address] 51040- 7278 Sep, Low back pain M54.5 and Anxiety F41.9 [facility] [id number] [place] [address] 21555 -8855 Aug, Acute allergic rhinitis J30.9 [facility] [address] [place] [address] 93862- 2222 Aug, [facility] [id number] [place] [address] 65766- 5952 Aug, Anxiety F41.9 [facility] [id number] [place] [address] 29816- 2174 15 Jul, 2016 Low back pain M54.5 ; Chronic prescription opiate use Z79.899 and Essential hypertension I10 [facility] [address] [place] [address] 22603- 6555 Jul, Anxiety F41.9 and Low back pain M54.5 [facility] [address], [place] [address]- 6186 June, [facility] [id number] [place] [address] 22917- 6406 June, Anxiety F41.9 [facility] [address] [place] [address] 13882- 6500 May, Low back pain M54.5 [facility] [id number] [place] [address] 08854- 8513 May, [facility] [id number] [place] [address] 69602- 5922 May, Anxiety F41.9 [facility] [id number] [place] [address] 34243- 8774 Apr, [facility] [id number] [place] [address] 82059- 8015 Apr, Low back pain M54.5 [facility] [id number] [place] [address] 87427- 1511 Apr, Moderate episode of recurrent major depressive disorder F33.1 [facility] [id number] [place] [address] 05407- 6299 Apr, Anxiety F41.9 [facility] [address] [place] [address] 42527- 8053 Apr, Low back pain M54.5 [facility] [address] [place] [address] 66949- 0326 15 Apr, 2016 Elevated alkaline phosphatase level R74.8 [facility] [id number] [place] [address] 33505- 0126 10 Apr, 2016 Alkaline phosphatase elevation R74.8 [facility] [address] [place] [address] 40582- 3506 06 Apr, [address] [facility] [id number] [place] [address]- 9782 03 Apr, 2016 Low back pain M54.5 [facility] [id number] [place] [address] 03321- 1573 03 Apr, 2016 History of weight loss surgery Z98.84 ; Encounter for hepatitis C screening test for low risk patient Z11.59 ; History of herpes genitalis Z86.19 ; Essential hypertension I10 ; Hyperlipidemia, unspecified E78.5 ; Exposure to STD Z20.2 and Benign prostatic hyperplasia, presence of lower urinary tract symptoms unspecified, unspecified morphology N40.0 [facility] [id number] [place] [address] 83973- 9149 02 Apr, 2016 [place] [id number] [place] [address] 01038- 7170 Mar, [place] [id number] [place] [address] 40149- 0899 Mar, [facility] [id number] [place] [address] 46358- 4954 Mar, [facility] [id number] [place] [address] 86163- 1157 Mar, Acute right-sided low back pain with right-sided sciatica M54.41 [facility] [id number] [place] [address] 36694- 8748 Mar, Low back pain M54.5 [facility] [id number] [place] [address] 26444 -8457 Mar, Muscle strain of chest wall, initial encounter S29.011A ; Muscle strain of right thigh, initial encounter S76.911A and Acute non- recurrent maxillary sinusitis J01.00 [place] [address] [place] [address] 50803- 2019 Mar, Benign prostatic hyperplasia, presence of lower urinary tract symptoms unspecified, unspecified morphology N40.0 [place] [id number] [place] [address] 39375- 3318 Jan, Low back pain M54.5 [facility] [id number] [place] [address] 89971- 1138 Jan, Low back pain M54.5 ; Essential hypertension I10 ; Hyperlipidemia, unspecified E78.5 ; Anxiety F41.9 ; Moderate episode of recurrent major depressive disorder F33.1 ; Primary insomnia F51.01 ; Exposure to STD Z20.2 ; Encounter for hepatitis C screening test for low risk patient Z11.59 and History of herpes genitalis Z86.19 [facility] [id number] [place] [address] 15477- 1124 17 Jan, 2016 [facility] [address] 05248- 6941 20 Dec, 2015 [place] [id number] [place] [address] 72443- 7851 14 Dec, 2015 Anxiety F41.9 ; Cervicalgia M54.2 ; Moderate episode of recurrent major depressive disorder F33.1 and Encounter for immunization Z23 [place] [id number] [place] [address] 86301- 3457 Oct, [place] [id number] [place] [address] 57961- 7057 22 Nov, 2015 [facility] [id number] [place] [address] 66074- 2931 16 Nov, 2015 [facility] [id number] [place] [address] 69629- 8360 Oct, [facility] [id number] [place] [address] 09522- 7973 Sep, [facility] [address] 87715- 7407 Aug, Low back pain M54.5 ; Anxiety F41.9 ; Primary insomnia F51.01 and Chronic prescription opiate use Z79.899 [facility] [address] 87979- 6819 Jul, [facility] [address] [id number] [place] [address]- 6974 Jul, [facility] [address] [id number] [place] [address]- 76[address] Jul, [facility] [address] [facility] [id number] [place] [address]- 4214 Jul, [facility] [address] [id number] [place] [address]- 6633 Jul, [facility] [address] [id number] [place] [address]- 2868 June, [facility] [address] [facility] [id number] [place] [address]- 5110 June, [facility] [address] [facility] [id number] [place] [address]- 7903 June, [facility] [address] [facility] [id number] [place] [address]- 0736 June, [facility] [address] [facility] [id number] [place] [address]- 7326 May, Preoperative cardiovascular examination Z01.810 [facility] [id number] [place] [address]- 9966 May, [facility] [id number] [place] [address]- 8051 Apr, [facility] [address] [facility] [id number] [address]- 6484 Apr, Osteoarthritis of right knee M17.9 [facility] [address] [facility] [id number] [place] [address]- 2062 30 May, 2015 [facility] [address] [facility] [id number] [place] [address]- 6036 16 [address], 2015 [facility] [id number] [place] [address]- 9540 Apr, [facility] [id number] [place] [address] 91564- 3867 Apr, [facility] [id number] [place] [address] 34686- 6310 Apr, History of excessive cerumen Z78.9 ; Obstructive sleep apnea syndrome G47.33 ; History of diverticulitis Z87.19 [address] [facility] [id number] [place] [address] 34922- 5539 Apr, [facility] [id number] [place] [address] 70499 -1196 Apr, Abdominal pain R10.9 [place] [id number] [place] [address] 84772- 7539 10 Apr, 2015 [place] [address] 39217- 1796 Apr, Osteoarthritis of right knee M17.9 [place] [id number] [place] [address] 09480- 2934 Mar, [place] [id number] [place] [address] 19462- 5357 Mar, [place] [id number] [place] [address] 26226- 9511 Mar, [place] [id number] [place] [address] 42029- 2688 Mar, [facility] [id number] [place] [address] 16854 -4958 Mar, Pyelonephritis N12 ; Left-sided thoracic back pain M54.6 ; Hematuria, unspecified R31.9 and Kidney stone N20.0 [place] [id number] [place] [address] 04091- 3533 12 Mar, 2015 History of weight loss surgery Z98.84 [place] [address] [place] [address]- 6568 Mar, 2016 History of weight loss surgery Z98.84 and Hyperlipidemia, unspecified E78.5 [facility] [id number] [place] [address] 25475- 7896 Mar, 2016 Low back pain M54.5 ; Chronic prescription opiate use Z79.899 ; Hyperlipidemia, unspecified E78.5 ; Spasm of back muscles M62.830 and History of weight loss surgery Z98.84 [facility] [id number] [place] [address] 28466- 3256 Jan, [facility] [id number] [place] [address] 87525- 7709 Jan, [facility] [id number] [place] [address] 64911- 1164 Jan, [facility] [id number] [place] [address] 94377- 3465 Dec, [facility] [id number] [place] [address] 41689- 7028 Dec, [facility] [id number] [place] [address] 55931- 3446 Dec, [facility] [address] [place] [address] 26644- 3503 Nov, [facility] [id number] [place] [address] 02493- 5991 Nov, Obstructive sleep apnea syndrome G47.33 and Pharyngoesophageal dysphagia R13.14 [facility] [id number] [place] [address] 65175- 4288 Nov, [facility] [id number] [place] [address] 32675- 8099 Nov, [facility] [id number], [place] [address] Nov, [place] [id number] [id number] Oct, [address] [facility] [id number] [place] [address] 17242- 1934 Oct, 2014 [facility] [id number] [place] [address] 818[address]- 3643 Oct, [facility] [id number] [place] [address] 714[address]- 5311 Oct, [facility] [id number] [place] [address] 53621- 0723 Oct, [facility] [id number] [place] [address] 53871- 2895 Oct, BPH (benign prostatic hyperplasia) 600.00 and Urinary frequency 788.41 [facility] [id number] [place] [address] 52294- 4243 Oct, [facility] [id number] [place] [address] 40281- 6598 Oct, [facility] [id number] [place] [address] 04156- 3557 Oct, [facility] [id number] [place] [address] 04542- 4183 Sep, Cerumen impaction 380.4 ; Cerumen debris on tympanic membrane 380.4 ; Psoriasis 696.1 and MICKY (secretory otitis media) 381.4 [facility] [id number] [place] [id number] Sep, Dental examination V72.2 [facility] [id number] [place] [address] 12964- 5766 Sep, Fatigue 780.79 ; Irritable bowel syndrome 564.1 ; Overweight 278.02 ; Poor sleep V69.4 ; Shaking spells 781.[address] [facility] [id number] [place] [address] Sep, [facility] [address] [id number] [place] [address] [address] Sep, [facility] [address] [id number] [place] [address] Aug, [facility] [address] [facility] [id number] [place] Jul, [facility] [address] [facility] [id number] [place] [address]096 Jul, [facility] [address] [facility] [id number] [place] [address] [address] Jul[facility] [address] [id number] [place] [address] Jul, [facility] [id number] [place] [address] June, Arthritis of knee, right 716.96 [facility] [address] [id number] [place] [address] June, [facility] [id number], [place] [address] June, Elevated blood pressure reading without diagnosis of hypertension 796.2 [facility] [id number], [place] [address] June, [facility] [address] [id number] [address] [address] June, [facility] [address] [id number] [address] June, [facility] [address], [place] [address] [address] June, [facility] [address] [facility] [id number] [address] May, [facility] [address] [id number], [place] [address] May, [facility] [place] [facility] [address] [id number] [place] [address] 30 Apr, 2014 [facility] [place] [facility] [address] [id number] [place] [address]- 0899 30 Apr, 2014 [facility] [place] [facility] [address] [id number] [place] [address]- 9989 Apr, [facility] [place] [facility] [address] [id number] [place] [address]- 1502 Apr, [facility] [place] [facility] [address] [id number] [place] [address]- 8919 Apr, [facility] [place] [facility] [address] [id number] [place] [address]- 4800 Apr, [facility] [place] [facility] [address] [id number] [place] [address]- 4088 Apr, [facility] [place] [facility] [address] [id number] [place] [address]- 5407 Apr, [facility] [place] [facility] [address] [id number] [place] [address]- 5586 Apr, [facility] [place] [facility] [address] [id number] [place] [address]- 4172 Apr, [facility] [place] [facility] [address] [id number] [place] [address]- 8021 Apr, [facility] [place] [facility] [address] [id number] [place] [address]- 8091 Apr, [facility] [place] [facility] [address] [id number] [place] [address]- 8492 Apr, [facility] [place] [facility] [address] [id number] [place] [address]- 2221 Apr, [facility] [place] [facility] [address] [id number] [place] [address]- 3440 Apr, [facility] [place] [facility] [address] [id number] [place] [address]- 2712 23 Apr, 2014 [facility] [place] [facility] [address] [id number] [place] [address]- 2256 Apr, 2014 [facility] [place] [facility] [address] [id number] [place] [address] 2546 20 Apr, 2014 [facility] [place] [facility] [address] [id number] [place] [address] 2540 18 Apr, 2014 [facility] [place] [facility] [address] [id number] [place] [address]- 2549 18 Apr, 2014 [facility] [place] [facility] [address] [id number] [place] [address]- 9876 13 Apr, 2014 [facility] [place] [facility] [address] [facility] [id number] [place] [address]- 0460 13 Apr, 2014 [facility] [place] [facility] [address] [facility] [id number] [place] [address]- 6274 13 Apr, 2014 [facility] [place] [facility] [address] [facility] [id number] [place] [address]- 4856 Apr, 2014 [facility] [place] [facility] [address] [facility] [id number] [place] [address]- 2228 Apr, 2014 [facility] [place] [facility] [address] [facility] [id number] [place] [address]- 4770 Apr, 2014 [facility] [place] [facility] [address] [facility] [id number] [address]- [address]49 Apr, 2014 [facility] [place] [facility] [address] [facility] [id number] [place] [address]- 2540 Apr, 2014 [facility] [place] [facility] [address] [facility] [id number] [place] [address]- 4670 Apr, 2014 [facility] [place] [facility] [address] [facility] [id number] [place] [address]- 8786 Apr, 2014 [facility] [place] [facility] [address] [facility] [id number] [place] [address]- 8275 Apr, [facility] [address] [id number] [place] [address]- 9409 Apr, [facility] [address] [id number] [place] [address]- 0156 Apr, [facility] [address] [id number] [place] [address]- 1173 Mar, [facility] [address] [id number] [place] [address]- 7805 Mar, [facility] [address] [id number] [place] [address]- 0505 Mar, [facility] [address] [id number] [place] [address]- 8994 Mar, [facility] [address] [id number] [place] [address]- 6920 Mar, [facility] [address] [id number] [place] [address]- 0930 Mar, [facility] [address] [id number] [place] [address]- 5977 Mar, [facility] [address] [facility] [id number] [place] [address]- 6398 Mar, [facility] [address] [id number] [place] [address]- 9617 Mar, [facility] [address] [id number] [place] [address]- 6036 Mar, [facility] [place] [facility] [address] [id number] [place] [address]- 2973 Jan, [facility] [place] [facility] [address] [id number] [place] [address]- 2876 Jan, [facility] [place] [facility] [address] [id number] [place] [address]- 4080 Jan, [facility] [place] [facility] [address] [id number] [place] [address]- 9963 Jan, [facility] [place] [facility] [address] [id number] [place] [address]- 5144 Jan, [facility] [place] [facility] [address] [id number] [place] [address]- 9241 Jan, [facility] [place] [facility] [address] [id number] [place] [address]- 1515 Jan, [facility] [place] [facility] [address] [id number] [place] [address]- 8375 Jan, [facility] [place] [facility] [address] [id number] [place] [address]- 5402 Jan, [facility] [place] [facility] [address] [id number] [place] [address]- 4350 Jan, [facility] [place] [facility] [address] [id number] [place] [address]- 4770 Jan, [facility] [place] [facility] [address] [id number] [place] [address]- 4711 Jan, [facility] [place] [facility] [address] [id number] [place] [address]- 6769 Dec, [facility] [place] [facility] [address] [id number] [place] [address]- 5083 Dec, [facility] [place] [facility] [address] [id number], [place] [address]- 6718 Dec, [facility] [place] [facility] [address] [id number] [place] [address]- 8658 Dec, [facility] [place] [facility] [address] [id number] [place] [address]- 0939 Dec, [facility] [place] [facility] [address] [id number] [place] [address]- 8764 Dec, [facility] [place] [facility] [address] [id number], [place] [address]- 5326 Dec, [facility] [place] [facility] [address] [id number] [place] [address]- 2326 Dec, [facility] [place] [facility] [address] [id number] [place] [address]- 7036 Dec, [facility] [place] [facility] [address] [id number] [place] [address]- 2023 Dec, [facility] [place] [facility] [address] [id number] [place] [address]- 3013 Nov, [facility] [place] [facility] [address] [id number] [place] [address]- 9085 Nov, [facility] [place] [facility] [address] [id number] [place] [address]- 5738 Nov, [facility] [place] [facility] [address] [id number] [place] [address]- 4612 Nov, [facility] [place] [facility] [address] [id number] [place] [address]- 9597 Nov, [facility] [place] [facility] [address] [facility] [id number] [place] [address]- 8477 Nov, [facility] [place] [facility] [address] [facility] [id number] [place] [address]- 5398 Nov, [facility] [place] [facility] [address] [id number], [place] [address]- 1545 Nov, [facility] [place] [facility] [address] [id number], [place] [address]- 6789 Nov, [facility] [place] [facility] [address] [id number] [place] [address]- 5289 Nov, [facility] [place] [facility] [address] [facility] [id number] [place] [address]- 2221 Nov, [facility] [place] [facility] [address] [facility] [id number] [place] [address]- 3401 Nov, [facility] [place] [facility] [address] [id number] [place] [address]- 9681 14 Nov, 2013 [facility] [place] [facility] [address] [id number] [place] [address]- 2314 14 Nov, 2013 [facility] [place] [facility] [address] [id number] [place] [address]- 3918 10 Nov, 2013 [facility] [place] [facility] [address] [id number] [place] [address]- 3280 10 Nov, 2013 [facility] [place] [facility] [address] [id number] [place] [address]- 1288 08 Nov, 2013 [facility] [place] [facility] [address] [id number] [place] [address]- 0239 Nov, [facility] [place] [facility] [address] [id number] [place] [address]- 4138 Nov, [facility] [place] [facility] [address] [id number] [place] [address]- 6514 Nov, [facility] [place] [facility] [address] [id number] [place] [address]- 0090 26 Oct, 2013 [facility] [place] [facility] [address] [id number] [place] [address]- 7529 26 Oct, 2013 [facility] [place] [facility] [address] [id number] [place] [address]- 0178 19 Oct, 2013 [facility] [place] [facility] [address] [id number] [place] [address]- 4679 19 Oct, 2013 [facility] [place] [facility] [address] [id number] [place] [address]- 2542 12 Oct, 2013 [facility] [place] [facility] [address] [id number] [place] [address]- 2546 12 Oct, 2013 [facility] [place] [facility] [address] [id number] [place] [address]- 2540 10 Oct, 2013 [facility] [place] [facility] [address] [id number] [place] [address]- 0080 Oct, [facility] [place] [facility] [address] [id number] [place] [address]- 5867 Oct, [facility] [place] [facility] [address] [id number] [place] [address]- 5359 Oct, [facility] [place] [facility] [address] [id number] [place] [address]- 7900 Sep, [facility] [place] [facility] [address] [id number] [place] [address]- 5608 Sep, [facility] [place] [facility] [address] [id number] [place] [address]- 9575 Sep, [facility] [place] [facility] [address] [id number] [place] [address]- 1680 Sep, [facility] [place] [facility] [address] [id number] [place] [address]- 2532 Sep, [facility] [place] [facility] [address] [id number] [place] [address]- 3813 Sep, [facility] [place] [facility] [address] [id number] [place] [address]- 5572 Sep, [facility] [place] [facility] [address] [id number] [place] [address]- 9165 Sep, [facility] [place] [facility] [address] [id number] [place] [address]- 4403 Sep, [facility] [place] [facility] [address] [id number] [place] [address]- 6929 Sep, [facility] [place] [facility] [address] [id number] [place] [address]- 7610 Sep, [facility] [place] [facility] [address] [id number] [place] [address]- 4312 Sep, [facility] [place] [facility] [address] [id number] [place] [address]- 8254 Sep, [facility] [place] [facility] [address] [id number] [place] [address]- 1411 Sep, [facility] [place] [facility] [address] [id number] [place] [address]- 3115 Sep, [facility] [place] [facility] [address] [id number] [place] [address]- 0262 Sep, [facility] [place] [facility] [address] [id number] [place] [address]- 6936 Sep, [facility] [place] [facility] [address] [id number] [place] [address]- 5186 Sep, [facility] [place] [facility] [address] [id number] [place] [address]- 2857 Sep, [facility] [place] [facility] [address] [id number] [place] [address]- 8268 Sep, [facility] [place] [facility] [address] [id number] [place] [address]- 4217 Sep, [facility] [place] [facility] [address] [id number] [place] [address]- 7822 Sep, [facility] [place] [facility] [address] [id number] [place] [address]- 8106 Sep, [facility] [place] [facility] [address] [id number] [place] [address]- 0793 Sep, [facility] [place] [facility] [address] [id number] [place] [address]- 2737 Sep, [facility] [place] [facility] [address] [id number] [place] [address]- 5456 Aug, [facility] [place] [facility] [address] [id number] [place] [address]- 7524 Aug, [facility] [place] [facility] [address] [id number] [place] [address]- 4181 Aug, [facility] [place] [facility] [address] [id number] [place] [address]- 2640 Aug, [facility] [place] [facility] [address] [id number] [place] [address]- 6200 Aug, 2013 [facility] [place] [facility] [address] [id number] [place] [address]- 4301 Aug, [facility] [place] [facility] [address] [id number] [place] [address]- 1886 Aug, [facility] [place] [facility] [address] [id number] [place] [address]- 3715 Aug, [facility] [place] [facility] [address] [id number] [place] [address]- 7058 Aug, [facility] [place] [facility] [address] [id number] [place] [address]- 5101 Aug, [facility] [place] [facility] [address] [id number] [place] [address]- 4201 Aug, [facility] [place] [facility] [address] [id number] [place] [address]- 7398 Aug, [facility] [place] [facility] [address] [id number] [place] [address]- 5993 Aug, [facility] [place] [facility] [address] [id number] [place] [address]- 1861 Jul, [facility] [place] [facility] [address] [id number] [place] [address]- 5399 Jul, [facility] [place] [facility] [address] [id number] [place] [address]- 3023 Jul, [facility] [place] [facility] [address] [id number] [place] [address]- 9894 Jul, [facility] [place] [facility] [address] [id number] [place] [address]- 5376 Jul, [facility] [place] [facility] [address] [id number] [place] [address]- 2149 Jul, [facility] [place] [facility] [address] [id number] [place] [address]- 3794 Jul, [facility] [place] [facility] [address] [id number] [place] [address]- 5735 June, [facility] [place] [facility] [address] [id number] [place]80 June, [facility] [place] [facility] [address] [id number] [place] [address]- 8664 June, [facility] [place] [facility] [address] [id number] [place] [address]- 9383 June, [facility] [place] [facility] [address] [id number] [place] [address]- 0243 May, [facility] [place] [facility] [address] [id number] [place] [address]- 9309 May, [facility] [place] [facility] [address] [id number] [place] [address]- 5567 May, [facility] [place] [facility] [address] [id number] [place] [address]- 9267 May, [facility] [place] [facility] [address] [id number] [place] [address]- 5386 May, [facility] [place] [facility] [address] [id number] [place] [address]- 2871 May, [facility] [place] [facility] [address] [id number] [place] [address]- 6083 May, [facility] [place] [facility] [address] [id number] [place] [address]- 2052 May, [facility] [place] [facility] [address] [id number] [place] [address]- 5643 May, [facility] [place] [facility] [address] [id number] [place] [address]- 5404 May, [facility] [place] [facility] [address] [id number] [place] [address]- 8398 Apr, [facility] [place] [facility] [address] [id number] [place] [address]- 4763 Apr, [facility] [place] [facility] [address] [id number] [place] [address]- 3245 Apr, [facility] [place] [facility] [address] [id number] [place] [address]- 0346 Apr, [facility] [place] [facility] [address] [id number] [place] [address]- 8846 Apr, [facility] [place] [facility] [address] [id number] [place] [address]- 2268 Apr, [facility] [place] [facility] [address] [id number] [place] [address]- 7166 Apr, [facility] [place] [facility] [address] [id number] [place] [address]- 7568 Apr, [facility] [place] [facility] [address] [id number] [place] [address]- 8860 Apr, [facility] [place] [facility] [address] [id number] [place] [address]- 8562 Apr, [facility] [place] [facility] [address] [facility] [id number] [place] [address]- 1157 Mar, [facility] [place] [facility] [address] [id number] [place] [address]- 9944 Mar, [facility] [place] [facility] [address] [id number] [place] [address]- 0446 Mar, [facility] [place] [facility] [address] [id number] [place] [address]- 1873 Mar, [facility] [place] [facility] [address] [id number] [place] [address]- 8031 Mar, [facility] [place] [facility] [address] [id number] [place] [address]- 0389 Mar, [facility] [place] [facility] [address] [id number] [place] [address] Jan, [facility] [place] [facility] [address] [id number] [place] [address] Jan, [facility] [place] [facility] [address] [id number] [place] [address] Jan, [facility] [place] [facility] [address] [facility] [id number] [place] [address] Jan, [facility] [place] [facility] [address] [id number] [place] [address] Jan, [facility] [place] [facility] [address] [id number] [place] [address] Jan, [facility] [place] [facility] [address] [id number] [place] [address] Jan, [facility] [place] [facility] [address] [id number] [place] [address] Jan, [facility] [place] [facility] [address] [id number], [place] [address] Jan, [facility] [place] [facility] [address] [id number], [place] [address] Dec, [facility] [place] [facility] [address] [id number], [place] [address] Dec, [facility] [place] [facility] [address] [id number], [place] [address] Dec, [facility] [place] [facility] [address] [id number], [place] [address] Dec, [facility] [place] [facility] [address] [id number], [place] [address] Dec, [facility] [place] [facility] [address] [id number], [place] [address] Dec, [facility] [place] [facility] [address] [facility] [id number], [place] [address] Dec, [facility] [place] [facility] [address] [id number] [place] [address] Dec, [facility] [address] [id number] [place] [address] Dec, [facility] [place] [facility] [address] [id number] [place] [address] Dec, [facility] [place] [facility] [address] [id number] [place] [address] Dec, [facility] [place] [facility] [address] [id number] [place] [address] Nov, [facility] [place] [facility] [address] [id number] [place] [address] Nov, [facility] [place] [facility] [address] [id number] [place] [address] Nov, [facility] [place] [facility] [address] [id number] [place] [address] Nov, [facility] [place] [facility] [address] [id number] [place] [address] Nov, [facility] [place] [facility] [address] [id number] [place] [address] Oct, [facility] [place] [facility] [address] [id number] [place] [address] Oct, [facility] [place] [facility] [address] [id number] [place] [address] Sep, [facility] [place] [facility] [address] [id number] [place] [address] Aug, [facility] [place] [facility] [address] [id number] [place] [address] Aug, [facility] [place] [facility] [address] [id number] [place] [address] Aug, [facility] [place] [facility] [address] [id number] [place] [address] 39[address] Aug, [facility] [place] [facility] [address] [id number] [place] [address] Jul, [facility] [address] [id number] [place] [address] Jul, [facility] [address] [id number] [place] [address] June, [facility] [place] [facility] [address] [id number] [place] [address] 2546 June, [facility] [address] [id number] [place] [address] June, [facility] [address] [id number] [place] [address] May, [facility] [address] [id number] [place] [address]37 May, [facility] [address] [id number] [place] [address] May, [facility] [address] [id number] [place] [address] Apr, [facility] [address] [id number] [place] [address] 18 Apr, 2012 [facility] [address] [id number] [place] [address] 15 Apr, 2012 [facility] [place] [facility] [address] [id number], [place] [address] 14 Apr, 2012 [facility] [place] [facility] [address] [id number] [place] [address]- [address] Apr, [facility] [place] [facility] [address] [id number] [place] [address] 79[address] Apr, [facility] [place] [facility] [address] [id number], [place] [address] Apr, [facility] [place] [facility] [address] [id number], [place] [address] 25 Apr, 2012 [facility] [address] [id number] [place] [address] Apr, [facility] [address] [id number] [place] [address] 20 Apr, 2012 [facility] [address] [id number] [place] [address] 2546 19 Apr, 2012 [facility] [address] [id number] [place] [address] 2546 Apr, [facility] [address] [id number] [place] [address] 07 Apr, 2012 [facility] [address] [id number] [place] [address] Mar, [facility] [address] [id number] [place] [address]67 Mar, [facility] [address] [id number] [place] [address] 16 Mar, 2012 [facility] [address] [id number] [place] [address] Mar, [facility] [address] [id number] [place] [address] 46[address] Mar, [facility] [address] [id number] [place] [address] 2016 Jan, [facility] [address] [id number] [place] [address] 2543 Jan, [facility] [address] [id number] [place] [address] 2541 Jan, [facility] [address] [id number] [place] [address]46 Jan, [facility] [address] [id number] [place] [address]40 14 Jan, 2012 [facility] [place] [facility] [address] [id number] [place] [address]- 9151 13 Jan, 2012 [facility] [place] [facility] [address] [id number] [place] [address]- [address]126 13 Jan, 2012 [facility] [place] [facility] [address] [address] [id number] [place] [address] 11 Jan, 2012 [facility] [place] [facility] [address] [id number] [place] [address] 06 Jan, 2012 [facility] [place] [facility] [address] [id number] [place] [address] 06 Jan, 2012 [facility] [place] [facility] [address] [id number] [place] [address] 04 Jan, 2012 [facility] [place] [facility] [address] [id number] [place] [address] Jan, [facility] [place] [facility] [address] [id number] [place] [address] 04 Jan, 2012 [facility] [place] [facility] [address] [id number] [place] [address] Jan, [facility] [place] [facility] [address] [id number] [place] [address] Dec, [facility] [place] [facility] [address] [id number] [place] [address] Dec, [facility] [place] [facility] [address] [id number], [place] [address] Dec, [facility] [place] [facility] [address] [id number] [place] [address] Dec, [facility] [place] [facility] [address] [id number] [place] [address] 118[address] 15 Jan, 2012 [facility] [place] [facility] [address] [id number], [place] [address] 15 Jan, 2012 [facility] [place] [facility] [address] [id number], [place] [address] 14 Jan, 2012 [facility] [place] [facility] [address] [id number] [place] [address] 14 Jan, 2012 [facility] [place] [facility] [address] [id number] [place] [address] 14 Jan, 2012 [facility] [place] [facility] [address] [id number] [place] [address] 46[address] 14 Jan, 2012 [facility] [place] [facility] [address] [id number] [place] [address] 1394 07 Jan, 2012 [facility] [place] [facility] [address] [id number] [place] [address] 07 Jan, 2012 [facility] [place] [facility] [address] [id number] [place] [address] 16 Dec, 2011 [facility] [place] [facility] [address] [id number] [place] [address] 16 Dec, 2011 [facility] [place] [facility] [address] [id number] [place] [address] 13 Nov, 2011 [facility] [place] [facility] [address] [id number] [place] [address] 13 Nov, 2011 [facility] [place] [facility] [address] [id number] [place] [address] 49[address] 13 Nov, 2011 [facility] [place] [facility] [address] [id number] [place] [address] 7735 12 Nov, 2011 [facility] [place] [facility] [address] [id number] [place] [address] 30 Oct, 2011 [facility] [place] [facility] [address] [id number] [place] [address] Sep, [facility] [place] [facility] [address] [id number] [place] [address] 23 Aug, 2011 [facility] [place] [facility] [address] [id number] [place] [address] 1271 13 Aug, 2011 [facility] [place] [facility] [address] [id number] [place] [address] Aug, [facility] [address] [id number] [place] [address] Aug, [facility] [place] [facility] [address] [id number] [place] [address] June, [facility] [address] [id number] [place] [address] June, [facility] [place] [facility] [address] [id number] [place] [address] May, [facility] [address] [id number] [place] [address] Apr, [facility] [place] [facility] [address] [id number] [place] [address] Apr, [facility] [place] [facility] [address] [id number] [place] [address] Apr, [facility] [address] [id number] [place] [address] Apr, [facility] [place] [facility] [address] [id number] [place] [address] Apr, [facility] [address] [id number] [place] [address] Apr, [facility] [place] [facility] [address] [id number] [place] [address] Mar, [facility] [place] [facility] [address] [id number] [place] [address] 8866 Mar, [facility] [place] [facility] [address] [id number] [place] [address] Mar, [facility] [place] [facility] [address] [id number] [place] [address] Jan, [facility] [place] [facility] [address] [id number] [place] [address] Jan, [facility] [place] [facility] [address] [id number] [place] [address] 8218 Jan, [facility] [place] [facility] [address] [id number] [place] [address] 132[address] Jan, [facility] [place] [facility] [address] [id number] [place] [address] Jan, [facility] [place] [facility] [address] [id number] [place] [address] 1099 Jan, [facility] [place] [facility] [address] [id number] [place] [address]158 Jan, [facility] [place] [facility] [address] [id number] [place] [address] Dec, [facility] [place] [facility] [address] [id number] [place] [address] Dec, [facility] [place] [facility] [address] [id number] [place] [address] Nov, [facility] [place] [facility] [address] [id number] [place] [address] 7494 Nov, [facility] [place] [facility] [address] [id number] [place] [address]487 Nov, [facility] [place] [facility] [address] [id number], [place] [address] Nov, [facility] [place] [facility] [address] [id number], [place] [address] Oct, [facility] [place] [facility] [address] [id number] [place] [address] 5673 Sep, [facility] [place] [facility] [address] [id number], [place] [address] Mar, [facility] [place] [facility] [address] [id number] [place] [address] Jan, [facility] [place] [facility] [address] [id number] [place] [address]37 09 Dec, 2009 [facility] [address] [id number] [place] [address] 1526 06 Dec, 2009 [facility] [place] [facility] [address] [id number] [place] [address] 0656 04 Dec, 2009 [facility] [place] [facility] [address] [id number] [place] [address] 3897 Dec, [facility] [place] [facility] [address] [id number] [place] [address] 4289 26 Nov, 2009 [facility] [place] [facility] [address] [id number] [place] [address] 6535 15 Nov, 2009 [facility] [place] [facility] [address] [id number] [place] [address]- 6424 14 Nov, 2009 [facility] [address] [id number] [place] [address] 8551 14 Nov, 2009 [facility] [place] [facility] [address] [id number] [place] [address]39 13 Oct, 2009 [facility] [place] [facility] [address] [id number] [place] [address] 8852 Jul, [facility] [place] [facility] [address] [facility] [id number] [place] [address] 8230 June, [facility] [place] [facility] [address] [id number] [place] [address] 7656 June, [facility] [place] [facility] [address] [id number] [place] [address]- 5890 Apr, [facility] [place] [facility] [address] [id number] [place] [address] 5043 Mar, [facility] [place] [facility] [address] [id number] [place] [address]- 3489 Jan, [facility] [place] [facility] [address] [id number] [place] [address] Jan, [facility] [address] [facility] [id number] [address] Dec, [facility] [address] [id number], [place] [address] Dec, [facility] [id number] [address]246 Dec, [facility] [id number] [place] [address] Dec, [facility] [address] [id number], [place] [address] Nov, [facility] [address] [address] Jul, [facility] [address], [place] [address] June, IMMUNIZATIONS No Known Immunizations SOCIAL HISTORY Never Assessed REASON FOR VISIT Blood Pressure. C/O right shoulder pain. Pt says he dislocated it roughly 3 or 4 months ago while working on his vehicle. Daily activities are difficult to perform. C/O left foot pain. Pt states that he has swelling and he heard something snap inside of his foot. C/O right foot cramping and soreness.-[employer] PLAN OF CARE Activity Details Follow Up 3 Months Reason:HTN/pain VITAL SIGNS Height 69 in 2017-11-17 Weight 331.6 lbs 2017-11-17 Temperature 98.6 degrees Fahrenheit 2017-11-17 Heart Rate 68 bpm 2017-11-17 Respiratory Rate 22 2017-11-17 BMI 48.96 kg/m2 2017-11-17 Blood pressure systolic 122 mmHg 2017-11-17 Blood pressure diastolic 84 mmHg 2017-11-17 MEDICATIONS Medication Instructions Dosage Frequency Start Date End Date Duration Status Viagra 25 MG Orally 0.5-4 hours before intercourse, up to once per day 1 tablet Sep, Active Clonazepam 1 MG Orally Once a day as needed for anxiety 1 tablet June, Active Fosamax 70 MG Orally once weekly 1 tablet Dec, 90 days Active Fluticasone Propionate 50 MCG/ACT 1 SPRAY INTO EACH NOSTRIL ONCE A DAY 60 Active Diclofenac Sodium 75 MG Orally 2 times a day 1 tablet with food or milk 12h 90 Active DiphenhydrAMINE HCl 50 MG Orally Once a day 1 capsule at bedtime as needed 24h Active Garlic 1,000 mg 3 Capsule 2 times per day Dec, Active ProAir HFA 108 (90 Base) MCG/ACT Inhalation every 6 hrs 2 puffs as needed 6h 15 Apr, 2017 Active Tizanidine HCl 4 MG TAKE 1 TABLET BY MOUTH THREE TIMES DAILY TO FOUR TIMES DAILY NEEDED 23 Active Docusate Sodium 100 MG Orally Once a day 1 capsule as needed 24h Active Allopurinol 100 MG TAKE 1 TABLET BY MOUTH DAILY 30 Active Omeprazole 20 MG TAKE 1 CAPSULE BY MOUTH TWICE DAILY 90 Active Duloxetine HCl 60 MG Orally Once a day 1 capsule 24h Nov, Active Metoprolol Tartrate 25 MG TAKE 1 TABLET BY MOUTH TWICE A DAY Active Nystatin 217416 UNIT/GM Externally Twice a day 1 application to affected area 12h June, Active Clobetasol Propionate 0.05 % Externally Twice a day 1 application to affected area 12h Sep, Active Flomax 0.4 MG 1 capsule 30 minutes after the same meal each day twice a day Orally 90 days 90 Active Multivitamin BID May, Active Endocet 10-325 MG Orally every 4-6 hours 1 tablet as needed Sep, 28 days Active RESULTS Name Result Date Reference Range Xray : Shoulder, Right 2 view (IN HOUSE) 2017-11-17 PROCEDURES Procedure Date Ordered Result Body Site X-RAY EXAM OF SHOULDER Nov 17, 2017 INSTRUCTIONS MEDICATIONS ADMINISTERED No Known Medications MEDICAL (GENERAL) HISTORY Type Description Date Medical History hypertension Medical History sleep apnea-did not tolerate CPAP Medical History oxygen dependent at [facility] Medical History colonic polyps Medical [...]
--- OUTSIDE RECORDS SUMMARY | 2018-02-26 18:47 | XMS REPORT ---
Author Author GRAHAM CHRIS [facility] Address [address] [place] [address] Care Team Prov[address] Care Road Test Examiner Name Role Phone GRAHAMELLIOTT HANNAHANY Unavailable PROBLEMS Type Condition ICD9-CM Code XBZ90-MK Code Onset Dates Condition Status SNOMED Code Problem Pulmonary asbestosis J61 Active 55887875 Problem Left ventricular diastolic dysfunction I51.9 Active 832223970 Problem Chronic gout, unspecified cause, unspecified site M1A.9XX0 Active 76274619 Problem Renal cyst, left N28.1 Active 53063490 Problem History of weight loss surgery Z98.84 Active 754260469 Problem Nocturnal hypoxia G47.34 Active 470004571 Problem Obstructive sleep apnea syndrome G47.33 Active 81396548 Problem History of diverticulitis Z87.19 Active 802940666383441 Problem Allergic rhinitis, unspecified allergic rhinitis type J30.9 Active 46365398 Problem Erectile dysfunction due to diseases classified elsewhere N52.1 Active 992672176 Problem Acute right-sided low back pain with right-sided sciatica M54.41 Active 089176358 Problem Psoriasis L40.9 Active 6729712 Problem Essential hypertension I10 Active 65746910 Problem Nephrolithiasis N20.0 Active 37022257 Problem Chronic prescription opiate use Z79.899 Active 482850131 Problem 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 Active 03962496 Problem Benign prostatic hyperplasia, presence of lower urinary tract symptoms unspecified, unspecified morphology N40.0 Active 635175216 Problem Moderate episode of recurrent major depressive disorder F33.1 Active 588193497 Problem Age-related osteoporosis without current pathological fracture M81.0 Active 89040274 Problem Low back pain M54.5 Active 670428559 Problem Anxiety F41.9 Active 88444498 Problem Urge incontinence N39.41 Active 216780399 Problem Hyperlipidemia, unspecified E78.5 Active 67250924 Problem Esophageal stricture K22.2 Active 96437124 Problem Cervicalgia M54.2 Active 8593795040585 Problem Primary insomnia F51.01 Active 970949823 ALLERGIES No Information ENCOUNTERS Encounter Location Date Diagnosis [facility] [address] 25683- 9437 Dec, [facility] [id number] [place] [address] 84322- 1789 Nov, [facility] [address] 75619- 9751 Oct, [facility] [address] 51905- 0277 Oct, [facility] [address] 56244- 1847 Oct, BMI 45.0-49.9, adult Z68.42 ; Essential hypertension I10 ; Hyperlipidemia, unspecified E78.5 ; Anxiety F41.9 ; Obstructive sleep apnea syndrome G47.33 ; Moderate episode of recurrent major depressive disorder F33.1 ; Left ventricular diastolic dysfunction I51.9 ; Acute pain of right shoulder M25.511 ; Pain of left foot M79.672 and Pain in right foot M79.671 [facility] [address] 28025- 5944 Oct, Anxiety F41.9 [facility] [id number] [place] [address] 44848 -6799 Sep, Left foot pain M79.672 [facility] [id number] [place] [address] 32667- 9419 Sep, [facility] [id number] [place] [address] 77008- 9399 Sep, Anxiety F41.9 [facility] [id number] [place] [address] 19020- 4851 Sep, [facility] [id number] [place] [address] 82697- 1710 Aug, [facility] [id number] [address] 4131 Aug, [facility] [id number] [place] [address] 97591- 9194 Aug, Anxiety F41.9 [facility] [id number] [place] [address] 93035- 9793 Aug, [facility] [id number] [place] [address] 34684- 9668 Jul, [facility] [id number] [place] [address] 65151- 3089 Jul, Anxiety F41.9 [facility] [id number] [place] [address] 52106- 0483 June, Anxiety F41.9 [facility] [id number] [place] [address] 73176- 8236 June, [facility] [id number] [place] [address] 32561- 7453 June, Low back pain M54.5 ; Chronic prescription opiate use Z79.899 ; Candidal intertrigo B37.2 ; Urge incontinence N39.41 ; Essential hypertension I10 ; Moderate episode of recurrent major depressive disorder F33.1 ; Age-related osteoporosis without current pathological fracture M81.0 and BMI 45.0-49.9, adult Z68.42 [facility] [id number] [place] [address] 00608- 8728 June, [facility] [id number] [place] [address] 81481- 5751 May, Anxiety F41.9 [facility] [id number] [place] [address] 49576- 9900 May, [facility] [id number] [place] [address] 28588- 4747 May, [facility] [id number] [place] [address] 63056- 5188 Apr, Anxiety F41.9 [facility] [id number] [place] [address] 10919- 4250 Apr, [facility] [id number] [place] [address] 98801- 3322 Apr, Low back pain M54.5 [facility] [id number] [place] [address] 72835- 4449 Apr, [facility] [id number] [place] [address] 62452- 7268 Apr, [facility] [address] 03328- 2512 Apr, Anxiety F41.9 [facility] [id number] [place] [address] 42028- 8911 Apr, Right groin pain R10.31 [facility] [address] 46637- 9180 Mar, [facility] [id number] [place] [address] 14984- 0681 Mar, [facility] [id number] [place] [address] 87901- 8254 Mar, Anxiety F41.9 [facility] [id number] [place] [address] 56629- 5415 Mar, Low back pain M54.5 [facility] [id number] [place] [address] 86811- 9900 Mar, Right groin pain R10.31 ; Low back pain M54.5 and BMI 45.0- 49.9, adult Z68.42 [facility] [id number] [place] [address] 61761- 3356 Mar, [facility] [id number] [place] [address] 66539- 1464 Mar, [facility] [address], [place] [address] 7216 Mar, [facility] [id number] [place] [address] 52049 -9158 Mar, [facility] [id number] [place] [address] 64055 -8335 Mar, Cough R05 ; Pneumonia of right lower lobe due to infectious organism J18.1 and Abnormal chest x-ray R93.8 [facility] [id number] [place] [address] 71145- 2515 Mar, [facility] [id number] [place] [address] 49573- 4178 Mar, [facility] [id number] [place] [address] 57761- 7072 Jan, Anxiety F41.9 [facility] [id number] [place] [address] 99147- 8031 Jan, [facility] [id number] [place] [address] 52076- 6251 Jan, Moderate episode of recurrent major depressive disorder F33.1 [facility] [id number] [place] [address] 25438- 7421 Jan, Subacromial bursitis of right shoulder joint M75.51 ; Shortness of breath on exertion R06.02 and BMI 45.0-49.9, adult Z68.42 [facility] [address] [place] [address] 32172- 8329 Dec, Anxiety F41.9 [facility] [id number] [place] [address] 10563- 2979 Dec, [facility] [id number] [place] [address] 43454- 8198 Dec, Low back pain M54.5 [facility] [id number] [place] [address] 70981- 9823 Oct, Low back pain M54.5 [facility] [address] [place] [address] 62221- 5304 Sep, [facility] [id number] [place] [address] 90093- 8823 Sep, Erectile dysfunction due to diseases classified elsewhere N52.1 [facility] [id number] [place] [address] 33940- 9540 Sep, Erectile dysfunction due to diseases classified elsewhere N52.1 [facility] [id number] [place] [address] 96603- 4459 Sep, [facility] [id number] [place] [address] 83450- 5929 Sep, Erectile dysfunction due to diseases classified elsewhere N52.1 [facility] [id number] [place] [address] 65870- 6000 Sep, Low back pain M54.5 and Anxiety F41.9 [facility] [id number] [place] [address] 75254 -9271 Aug, Acute allergic rhinitis J30.9 [facility] [id number] [place] [address] 64483- 9142 Aug, [facility] [id number] [place] [address] 25773- 8557 Aug, Anxiety F41.9 [facility] [id number] [place] [address] 66396- 6113 Jul, Low back pain M54.5 ; Chronic prescription opiate use Z79.899 and Essential hypertension I10 [facility] [id number] [place] [address] 44799- 6668 Jul, Anxiety F41.9 and Low back pain M54.5 [facility] [id number] [place] [address] 56381- 7206 June, [facility] [id number] [place] [address] 89272- 9458 June, Anxiety F41.9 [facility] [id number] [place] [address] 19060- 4693 May, Low back pain M54.5 [facility] [id number] [place] [address] 57835- 2863 May, [facility] [id number] [place] [address] 35942- 3438 May, Anxiety F41.9 [facility] [id number] [place] [address] 93274- 0658 Apr, [facility] [id number] [place] [address] 65469- 0404 Apr, Low back pain M54.5 [facility] [id number] [place] [address] 17689- 8507 Apr, Moderate episode of recurrent major depressive disorder F33.1 [facility] [id number] [place] [address] 81017- 5423 Apr, Anxiety F41.9 [facility] [id number] [place] [address] 63303- 1618 Apr, Low back pain M54.5 [facility] [id number] [place] [address] 43901- 3160 15 Apr, 2016 Elevated alkaline phosphatase level R74.8 [facility] [id number] [place] [address] 89727- 9477 10 Apr, 2016 Alkaline phosphatase elevation R74.8 [facility] [id number] [place] [address] 35526- 9826 06 Apr, 2016 Anxiety F41.9 [facility] [id number] [place] [address] 50050- 0574 03 Apr, 2016 Low back pain M54.5 [facility] [id number] [address]- 7328 03 Apr, 2017 History of weight loss surgery Z98.84 ; Encounter for hepatitis C screening test for low risk patient Z11.59 ; History of herpes genitalis Z86.19 ; Essential hypertension I10 ; Hyperlipidemia, unspecified E78.5 ; Exposure to STD Z20.2 and Benign prostatic hyperplasia, presence of lower urinary tract symptoms unspecified, unspecified morphology N40.0 [facility] [id number] [place] [address] 18499- 6103 02 Apr, 2016 [facility] [id number] [place] [address] 61494- 9614 Mar, [facility] [id number] [place] [address] 00180- 7526 Mar, [facility] [id number] [place] [address] 11278- 9209 Mar, [facility] [id number] [place] [address] 28343- 2740 Mar, Acute right-sided low back pain with right-sided sciatica M54.41 [facility] [id number] [place] [address] 48556- 7588 Mar, Low back pain M54.5 [facility] [address] [place] [address] 01717 -0280 Mar, Muscle strain of chest wall, initial encounter S29.011A ; Muscle strain of right thigh, initial encounter S76.911A and Acute non- recurrent maxillary sinusitis J01.00 [facility] [address] [place] [address] 71012- 0625 Mar, Benign prostatic hyperplasia, presence of lower urinary tract symptoms unspecified, unspecified morphology N40.0 [facility] [address] [place] [address] 73914- 5496 Jan, Low back pain M54.5 [facility] [id number] [place] [address] 06088- 7245 13 Jan, 2016 Low back pain M54.5 ; Essential hypertension I10 ; Hyperlipidemia, unspecified E78.5 ; Anxiety F41.9 ; Moderate episode of recurrent major depressive disorder F33.1 ; Primary insomnia F51.01 ; Exposure to STD Z20.2 ; Encounter for hepatitis C screening test for low risk patient Z11.59 and History of herpes genitalis Z86.19 [facility] [id number] [place] [address] 78813- 6995 17 Jan, 2016 [facility] [address] 29182- 6458 20 Dec, 2015 [facility] [address] 11042- 3524 14 Dec, 2015 Anxiety F41.9 ; Cervicalgia M54.2 ; Moderate episode of recurrent major depressive disorder F33.1 and Encounter for immunization Z23 [facility] [id number] [place] [address] 25122- 6411 23 Nov, 2015 [facility] [id number] [place] [address] 72399- 4496 22 Nov, 2015 [facility] [address] 32427- 6305 16 Nov, 2015 [facility] [id number] [place] [address] 71793- 4519 09 Nov, 2015 [facility] [id number] [place] [address] 21498- 5184 Sep, [facility] [id number] [place] [address] 73659- 3572 Aug, Low back pain M54.5 ; Anxiety F41.9 ; Primary insomnia F51.01 and Chronic prescription opiate use Z79.899 [facility] [id number] [place] [address] 39975- 5581 Jul, [facility] [id number] [place] [address] 37741- 4955 Jul, [facility] [address] [id number] [place] [address]- 5122 Jul, [facility] [address] [id number] [place] [address]- 2521 Jul, [facility] [address] [id number] [place] [address]- 8267 Jul, [facility] [address] [facility] [id number] [place] [address]- 0180 June, [facility] [address] [id number] [place] [address]- 3481 June, [facility] [address] [id number] [place] [address]- 3253 June, [facility] [address] [facility] [id number] [place] [address]- 5245 June, [facility] [id number] [place] [address]- 8624 May, Preoperative cardiovascular examination Z01.810 [facility] [id number] [place] [address]- 7684 May, [facility] [address] [facility] [id number] [place] [address]- 5636 Apr, [facility] [address], [place] [address]- 6892 Apr, Osteoarthritis of right knee M17.9 [facility] [address] [facility] [id number] [place] [address]- 1225 30 May, 2015 [facility] [address] [facility] [id number] [place] [address]- 3559 16 May, 2015 [facility] [address] [facility] [id number] [place] [address]- 6661 Apr, [facility] [address] [facility] [id number] [place] 9123 Apr, [facility] [id number] [place] [address] 74940- 8863 08 May, 2015 History of excessive cerumen Z78.9 ; Obstructive sleep apnea syndrome G47.33 ; History of diverticulitis Z87.19 and Nephrolithiasis N20.0 [facility] [id number] [place] [address] 06520- 5770 29 Apr, 2015 [facility] [id number] [place] [address] 33641 -0307 Apr, Abdominal pain R10.9 [facility] [id number] [place] [address] 52631- 2888 10 Apr, 2015 [place] [address] 38393- 2855 04 Apr, 2015 Osteoarthritis of right knee M17.9 [facility] [address] 18531- 4290 Mar, [facility] [id number] [place] [address] 21910- 2041 15 Mar, 2015 [facility] [address] 73217- 8948 14 Mar, 2015 [facility] [id number] [place] [address] 64758- 9384 13 Mar, 2015 [facility] [id number] [place] [address] 06852 -6175 Mar, Pyelonephritis N12 ; Left-sided thoracic back pain M54.6 ; Hematuria, unspecified R31.9 and Kidney stone N20.0 [facility] [address] 10077- 5065 12 Mar, 2015 History of weight loss surgery Z98.84 [facility] [id number] [place] [address] 08510- 6963 07 Mar, 2015 History of weight loss surgery Z98.84 and Hyperlipidemia, unspecified E78.5 [facility] [id number] [place] [address] 73815- 2762 06 Mar, 2015 Low back pain M54.5 ; Chronic prescription opiate use Z79.899 ; Hyperlipidemia, unspecified E78.5 ; Spasm of back muscles M62.830 and History of weight loss surgery Z98.84 [facility] [id number] [place] [address] 26407- 1031 Jan, [facility] [id number] [place] [address] 31154- 1296 Jan, [facility] [id number] [place] [address] 44248- 9575 Jan, [facility] [id number] [place] [address] 45156- 8414 Dec, [facility] [id number] [place] [address] 09221- 5244 Dec, [facility] [id number] [place] [address] 42385- 0165 Dec, [facility] [id number] [place] [address] 45499- 0056 Nov, [facility] [id number] [place] [address] 46327- 9613 Nov, Obstructive sleep apnea syndrome G47.33 and Pharyngoesophageal dysphagia R13.14 [facility] [id number] [place] [address] 00498- 9480 Nov, [facility] [id number] [place] [address] 16868- 2946 Nov, [facility] [address] 40410- 2940 Nov, [facility] [id number] [place] [address] [id number] 30 Oct, 2014 Dental examination V72.2 [facility] [id number] [place] [address] 38666- 5829 Oct, 2014 [facility] [id number] [place] [address] 01070- 2272 Oct, 2014 [facility] [id number] [place] [address] 79593- 2262 Oct, 2014 [facility] [id number] [place] [address] 33781- 2677 Oct, 2014 [facility] [address] 44473- 3294 Oct, BPH (benign prostatic hyperplasia) 600.00 and Urinary frequency 788.41 [facility] [address] 98082- 6463 Oct, 2014 [facility] [id number] [place] [address] 97632- 2598 Oct, [facility] [id number] [place] [address] 27504- 6941 Oct, [facility] [id number] [place] [address] 61277- 9410 Sep, Cerumen impaction 380.4 ; Cerumen debris on tympanic membrane 380.4 ; Psoriasis 696.1 and MICKY (secretory otitis media) 381.4 [facility] [address] [place] [address] [id number] Sep, Dental examination V72.2 [facility] [id number] [place] [address] 56923- 4394 Sep, Fatigue 780.79 ; Irritable bowel syndrome 564.1 ; Overweight 278.02 ; Poor sleep V69.4 ; Shaking spells 781.0 and Broken tooth 873.63 [facility] [id number] [place] [address] 49802- 1116 Sep, [facility] [id number] [place] [address] 13761- 0226 Sep, [place] [address] [facility] [id number] [address]- 3338 Aug, [facility] [address] [place] [address]- 3600 Jul, [facility] [address] [facility] [id number] [place] [address]- 5881 Jul, [facility] [address] [place] [address]- 6951 Jul, [facility] [address] [facility] [id number] [place] [address] Jul, [facility] [id number] [place] [address] June, Arthritis of knee, right 716.96 [facility] [id number] [place] [address] June, [facility] [id number] [address] June, Elevated blood pressure reading without diagnosis of hypertension 796.2 [facility] [id number] [place] [address] June, [facility] [id number] [address] June, [facility] [id number] [address] June, [facility] [id number] [address] June, [facility] [id number] [address] May, [facility] [id number] [id number] May, [facility] [id number] [address] Apr, [facility] [place] [facility] [address] [id number] [place] [address] 30 Apr, 2014 [facility] [place] [facility] [address] [id number] [place] [address] Apr, [facility] [place] [facility] [address] [id number] [place] [address] Apr, [facility] [place] [facility] [address] [id number] [place] [address] Apr, [facility] [place] [facility] [address] [id number] [place] [address] Apr, [facility] [place] [facility] [address] [id number] [place] [address] Apr, [facility] [place] [facility] [address] [id number] [place] [address] Apr, [facility] [place] [facility] [address] [id number] [place] [address] Apr, [facility] [place] [facility] [address] [id number] [place] [address] Apr, [facility] [place] [facility] [address] [id number] [place] [address] Apr, [facility] [place] [facility] [address] [id number] [place] [address] Apr, [facility] [place] [facility] [address] [id number] [place] [address] Apr, 2014 [facility] [place] [facility] [address] [id number] [place] [address] Apr, 2014 [facility] [facility] [address] [id number] [place] [address] Apr, 2014 [facility] [place] [facility] [address] [id number] [place] [address]- 1526 Apr, 2014 [facility] [place] [facility] [address] [id number] [place] [address]- 0224 20 Apr, 2014 [facility] [place] [facility] [address] [id number] [place] [address]- 3800 20 Apr, 2014 [facility] [place] [facility] [address] [facility] [id number] [place] [address]- 3204 18 Apr, 2014 [facility] [facility] [address] [facility] [id number] [place] [address]- 9038 18 Apr, 2014 [facility] [address] [facility] [id number] [place] [address]- 5529 13 Apr, 2014 [facility] [place] [facility] [address] [facility] [id number] [place] [address]- 0013 13 Apr, 2014 [facility] [place] [facility] [address] [id number] [place] [address] 4[address] 13 Apr, 2014 [facility] [id number] [place] [address]- 3775 13 Apr, 2014 [facility] [address] [facility] [id number] [place] [address]- 7427 12 Apr, 2014 [facility] [place] [facility] [address] [id number] [place] [address]- 5682 12 Apr, 2014 [facility] [address] [id number], [place] [address] 06 Apr, 2014 [facility] [address] [facility] [id number], [place] [address] Apr, 2014 [facility] [place] [address] [facility] [id number] [place] [address]- 8846 05 Apr, 2014 [facility] [place] [address] [facility] [id number] [place] [address]- 5202 Apr, 2014 [facility] [facility] [address] [facility] [id number], [place] [address]- 7599 05 Apr, 2014 [facility] [id number], [place] [address] 25[address] Apr, [facility] [address] [id number] [place] [address]- 7360 Apr, [facility] [address] [id number] [place] [address]- 3942 Mar, [facility] [address] [id number] [place] [address]- 2368 Mar, [facility] [address] [id number] [place] [address]- 6096 Mar, [facility] [facility] [address] [id number] [place] [address]- 9909 Mar, [facility] [address] [id number] [place] [address]- 9630 Mar, [facility] [address] [id number] [place] [address]- 4101 Mar, [facility] [address] [id number] [place] [address]- 6638 Mar, [facility] [address] [id number] [place] [address]- 9965 Mar, [facility] [address] [id number] [place] [address]- 1891 Mar, [facility] [address] [id number], [place] [address]- 1773 Mar, [facility] [address] [id number] [place] [address]- 5900 Jan, [facility] [address] [id number] [place] [address]- 4990 Jan, [facility] [address] [id number] [place] [address]- 7039 Jan, [facility] [address] [id number] [place] [address] Jan, [facility] [address] [id number] [place] [address]- 2861 Jan, [facility] [address] [id number] [place] [address]- 5353 Jan, [facility] [address] [id number] [place] [address]- 3296 Jan, [facility] [address] [id number] [place] [address]- 0582 Jan, [facility] [address] [id number] [place] [address]- 4680 Jan, [facility] [address] [id number] [place] [address]- 6822 Jan, [facility] [address] [id number] [place] [address]- 6834 Jan, [facility] [address] [id number] [place] [address]- 8343 Jan, [facility] [address] [id number] [place] [address]- 9067 Dec, [facility] [address] [id number] [place] [address]- 8494 Dec, [facility] [address] [id number] [place] [address]- 5254 Dec, [facility] [address] [id number] [place] [address]- 2822 Dec, [facility] [address] [id number] [place] [address]- 4224 Dec, [facility] [address] [id number] [place] [address]- 5290 Dec, [facility] [address] [id number] [place] [address]19 Dec, [facility] [address] [id number] [place] [address]- 7841 Dec, [facility] [address] [id number] [place] [address]- 4089 Dec, [facility] [address] [id number] [place] [address]- 3120 Dec, [facility] [address] [id number] [place] [address]- 9291 Nov, [facility] [address] [id number] [place] [address]- 8525 Nov, [facility] [address] [id number] [place] [address]- 4233 Nov, [facility] [address] [id number] [place] [address]- 4274 Nov, [facility] [address] [id number] [place] [address]- 6085 Nov, [facility] [address] [id number] [place] [address]- 0713 Nov, [facility] [address] [id number] [place] [address]- 4247 Nov, [facility] [address] [id number], [place] [address]- 8126 Nov, [facility] [address] [id number], [place] [address]- 4911 Nov, [facility] [address] [id number], [place] [address]- 4343 24 Nov, 2013 [facility] [address] [id number] [place] [address]- 4755 Nov, [facility] [address] [id number], [place] [address]- 6995 Nov, [facility] [address] [id number] [place] [address]- 2829 14 Nov, 2013 [facility] [address] [id number] [place] [address]- 7505 14 Nov, 2013 [facility] [address] [id number] [place] [address]- 0174 10 Nov, 2013 [facility] [address] [id number] [place] [address]- 0752 10 Nov, 2013 [facility] [address] [id number] [place] [address]- 6390 08 Nov, 2013 [facility] [address] [id number] [place] [address]- 4158 08 Nov, 2013 [facility] [address] [id number] [place] [address]- 2443 Nov, [facility] [address] [id number] [place] [address]- 8979 Nov, [facility] [address] [id number] [place] [address]- 1156 26 Oct, 2013 [facility] [address] [id number] [place] [address]- 4776 26 Oct, 2013 [facility] [address] [id number] [place] [address]- 0463 19 Oct, 2013 [facility] [address] [id number] [place] [address]- 6585 19 Oct, 2013 [facility] [address] [id number] [place] [address]- 7325 12 Oct, 2013 [facility] [address] [id number] [place] [address]- 2545 12 Oct, 2013 [facility] [address] [id number] [place] [address]- 3754 10 Oct, 2013 [facility] [address] [id number] [place] [address]- 254 10 Oct, 2013 [facility] [address] [id number] [place] [address]- 7139 08 Oct2013 [facility] [address] [id number] [place] [address]- 0745 Oct, [facility] [address] [id number] [place] [address]- 3728 Sep, [facility] [address] [id number] [place] [address]- 9720 Sep, [facility] [address] [id number] [place] [address]- 2441 Sep, [facility] [address] [id number] [place] [address]- 7701 Sep, [facility] [address] [id number] [place] [address]- 2378 Sep, [facility] [address] [id number] [place] [address]- 1470 Sep, [facility] [address] [id number] [place] [address]- 2410 Sep, [facility] [address] [id number] [place] [address]- 3538 Sep, [facility] [address] [id number] [place] [address]- 5057 Sep, [facility] [address] [id number] [place] [address]- 8487 Sep, [facility] [address] [id number] [place] [address]- 6436 Sep, [facility] [address] [id number] [place] [address]- 5167 Sep, [facility] [address] [id number] [place] [address]- 0312 Sep, [facility] [address] [id number] [place] [address]- 6259 Sep, [facility] [address] [id number] [place] [address]- 8609 Sep, [facility] [address] [id number] [place] [address]- 4553 Sep, [facility] [address] [id number] [place] [address]- 8726 Sep, [facility] [address] [id number] [place] [address]- 1305 Sep, [facility] [address] [id number] [place] [address]- 4047 Sep, [facility] [address] [id number] [place] [address]- 8622 Sep, [facility] [address] [id number] [place] [address]- 4918 Sep, [facility] [address] [id number] [place] [address]- 2427 Sep, [facility] [address] [id number] [place] [address]- 6786 Sep, [facility] [address] [id number] [place] [address]- 6542 Sep, [facility] [address] [id number] [place] [address]- 8397 Sep, [facility] [address] [id number] [place] [address]- 9398 Aug, [facility] [address] [id number] [place] [address]- 1809 Aug, [facility] [address] [id number] [place] [address]- 6953 Aug, [facility] [address] [id number] [place] [address]- 8751 Aug, [facility] [address] [id number] [place] [address]- 8010 Aug, [facility] [address] [id number] [place] [address]- 0050 Aug, [facility] [address] [id number] [place] [address]- 7261 Aug, [facility] [address] [id number] [place] [address]- 2214 Aug, [facility] [address] [id number] [place] [address]- 6481 Aug, [facility] [address] [id number] [place] [address]- 5188 Aug, [facility] [address] [id number] [place] [address]- 2815 Aug, [facility] [address] [id number] [place] [address]- 4438 Aug, [facility] [address] [id number] [place] [address]- 8626 Aug, [facility] [address] [id number] [place] [address]- 9836 Jul, [facility] [address] [id number] [place] [address]- 9319 Jul, [facility] [address] [id number] [place] [address]- 1898 Jul, [facility] [address] [id number] [place] [address]- 0316 Jul, [facility] [address] [id number] [place] [address]- 8113 Jul, [facility] [address] [id number] [place] [address]- 7290 Jul, [facility] [address] [id number] [place] [address]- 5768 Jul, [facility] [address] [id number] [place] [address]- 0553 June, [facility] [address] [id number] [place] [address]- 7893 June, [facility] [address] [id number] [place] [address]- 5029 June, [facility] [address] [id number] [place] [address]- 6134 June, [facility] [address] [id number] [place] [address]- 5981 May, [facility] [facility] [address] [id number] [place] [address]- 8430 May, [facility] [address] [id number] [place] [address]- 6067 May, [facility] [address] [id number] [place] [address]- 0740 May, [facility] [facility] [address] [id number] [place] [address]- 7663 May, [facility] [facility] [address] [id number] [place] [address]- 2653 May, [facility] [address] [id number] [place] [address]- 6633 May, [facility] [facility] [address] [id number] [place] [address]- 2061 May, [facility] [place] [facility] [address] [id number] [place] [address]- 7280 May, [facility] [address] [id number] [place] [address]- 1454 May, [facility] [place] [facility] [address] [id number] [place] [address]- 9336 Apr, [facility] [place] [facility] [address] [id number] [place] [address]- 3357 Apr, [facility] [place] [facility] [address] [id number] [place] [address]- 5607 Apr, [facility] [place] [facility] [address] [id number] [place] [address]- 6966 Apr, [facility] [place] [facility] [address] [id number] [place] [address]- 6576 Apr, [facility] [place] [facility] [address] [id number] [place] [address]- 9506 Apr, [facility] [place] [facility] [address] [id number] [place] [address]- 1818 Apr, [facility] [place] [facility] [address] [id number] [place] [address]- 3456 Apr, [facility] [place] [facility] [address] [id number] [place] [address]- 6059 Apr, [facility] [place] [facility] [address] [id number] [place] [address]- 1405 Apr, [facility] [place] [facility] [address] [id number] [place] [address]- 7456 Mar, [facility] [place] [facility] [address] [id number] [place] [address]- 3975 Mar, [facility] [place] [facility] [address] [facility] [id number] [place] [address]- 5799 Mar, [facility] [place] [facility] [address] [id number] [place] [address]- 7030 Mar, [facility] [place] [facility] [address] [id number] [place] [address]- 5542 Mar, [facility] [place] [facility] [address] [id number] [place] [address]- 6994 Mar, [facility] [place] [facility] [address] [facility] [id number] [place] [address]- 6749 Jan, [facility] [place] [facility] [address] [id number] [place] [address]- 1555 Jan, [facility] [place] [facility] [address] [id number] [place] [address]- 1890 Jan, [facility] [address] [id number] [place] [address]- 8516 Jan, [facility] [address] [id number] [place] [address]- 2040 Jan, [facility] [address] [id number] [place] [address]- 1334 Jan, [facility] [address] [id number] [place] [address]- 8541 Jan, [facility] [address] [id number] [place] [address]- 7603 Jan, [facility] [address] [id number] [place] [address]- 5864 Jan, [facility] [address] [id number] [place] [address]- 6366 Dec, [facility] [address] [id number] [place] [address]- 8981 Dec, [facility] [address] [id number] [place] [address]- 6595 Dec, [facility] [address] [id number] [place] [address]- 4666 Dec, [facility] [address] [id number], [place] [address]- 4048 Dec, [facility] [place] [facility] [address] [id number] [place] [address]- 9251 Dec, [facility] [place] [facility] [address] [id number] [place] [address]- 6682 Dec, [facility] [place] [facility] [address] [id number], [place] [address]- 1969 Dec, [facility] [place] [facility] [address] [id number], [place] [address]- 8222 Dec, [facility] [place] [facility] [address] [id number] [place] [address]- 3522 Dec, [facility] [place] [facility] [address] [id number] [place] [address]- 1315 Dec, [facility] [place] [facility] [address] [id number] [place] [address]- 4720 Nov, [facility] [place] [facility] [address] [id number] [place] [address]- 0499 Nov, [facility] [place] [facility] [address] [id number] [place] 7931 Nov, [facility] [place] [facility] [address] [id number] [place] [address]- 7152 Nov, [facility] [place] [facility] [address] [id number] [place] 0343 Nov, [facility] [place] [facility] [address] [id number] [place] [address]- 7046 Oct, [facility] [place] [facility] [address] [id number] [place] [address]- 8038 Oct, [facility] [place] [facility] [address] [id number] [place] [address]- 0714 Sep, [facility] [place] [facility] [address] [id number], [place] [address]- 9806 Aug, [facility] [place] [facility] [address] [id number] [place] [address]- 4010 Aug, [facility] [place] [facility] [address] [id number] [place] [address] Aug, [facility] [place] [facility] [address] [id number] [place] [address] Aug, [facility] [place] [facility] [address] [id number] [place] [address] Jul, [facility] [place] [facility] [address] [id number] [place] [address] Jul, [facility] [address] [id number] [place] [address] June, [facility] [address] [id number] [place] [address] June, [facility] [address] [id number] [place] [address] June, [facility] [address] [id number] [place] [address]68 May, [facility] [address] [id number] [place] [address] May, [facility] [address] [id number] [place] [address] May, [facility] [address] [id number] [place] [address] Apr, [facility] [address] [id number] [place] [address] 18 Apr, 2012 [facility] [address] [id number] [place] [address]77 15 Apr, 2012 [facility] [address] [id number] [place] [address]- [address]181 14 Apr, 2012 [facility] [address] [id number] [place] [address] Apr, [facility] [address] [id number] [place] [address] Apr, [facility] [address] [id number] [place] [address]- 2016 Apr, [facility] [address] [id number] [place] [address] Apr, [facility] [address] [id number] [place] [address]- [address] Apr, [facility] [address] [id number] [place] [address]- [address] 20 Apr, 2012 [facility] [address] [id number] [place] [address]- 6436 19 Apr, 2012 [facility] [address] [id number] [place] [address]- 6446 07 Apr, 2012 [facility] [place] [facility] [address] [id number] [place] [address]- 7736 07 Apr, 2012 [facility] [address] [id number] [place] [address]47 Mar, [facility] [address] [id number] [place] [address]- [address]237 23 Mar, 2012 [facility] [address] [id number] [place] [address]- 1609 16 Mar, 2012 [facility] [address] [id number] [place] [address] Mar, [facility] [address] [id number] [place] [address]66 Mar, [facility] [address] [id number] [place] [address]- [address]20 28 Jan, 2012 [facility] [address] [id number] [place] [address]- [address] 28 Jan, 2012 [facility] [place] [facility] [address] [id number] [place] [address]- 9324 22 Jan, 2012 [facility] [place] [facility] [address] [id number] [place] [address]- [address] 22 Jan, 2012 [facility] [place] [facility] [address] [id number] [place] [address]- [address]376 14 Jan, 2012 [facility] [place] [facility] [address] [id number] [place] [address]- [address]275 13 Jan, 2012 [facility] [place] [facility] [address] [id number] [place] [address]- [address]77 13 Jan, 2012 [facility] [address] [id number] [place] [address]- [address]306 11 Jan, 2012 [facility] [place] [facility] [address] [id number] [place] [address]- 4836 06 Jan, 2012 [facility] [address] [id number] [place] [address]- 1066 06 Jan, 2012 [facility] [place] [facility] [address] [id number] [place] [address]- 6074 04 Jan, 2012 [facility] [address] [id number] [place] [address]- 4024 Jan, [facility] [address] [id number] [place] [address]- [address] Jan, [facility] [address] [id number] [place] [address]- [address]147 Jan, [facility] [address] [id number] [place] [address]- 4749 26 Jan, 2012 [facility] [place] [facility] [address] [id number] [place] [address]- 4342 26 Jan, 2012 [facility] [address] [id number] [place] [address]- 7950 19 Jan, 2012 [facility] [place] [facility] [address] [id number] [place] [address]- 8657 19 Jan, 2012 [facility] [place] [facility] [address] [id number] [place] [address]- 2546 15 Jan, 2012 [facility] [place] [facility] [address] [id number] [place] [address]- 5586 15 Jan, 2012 [facility] [place] [facility] [address] [id number] [place] [address]- 5675 14 Jan, 2012 [facility] [place] [facility] [address] [id number] [place] [address]- [address]34 14 Jan, 2012 [facility] [place] [facility] [address] [id number] [place] [address]- 3691 14 Jan, 2012 [facility] [place] [facility] [address] [id number] [place] [address]- 4819 14 Jan, 2012 [facility] [place] [facility] [address] [id number] [place] [address]- 1578 07 Jan, 2012 [facility] [place] [facility] [address] [id number] [place] [address]- 5416 07 Jan, 2012 [facility] [place] [facility] [address] [id number] [place] [address]- 5314 16 Dec, 2011 [facility] [place] [facility] [address] [id number] [place] [address]- 5368 16 Dec, 2011 [facility] [place] [facility] [address] [id number] [place] [address]- 5993 13 Nov, 2011 [facility] [place] [facility] [address] [id number] [place] [address]- 2142 13 Nov, 2011 [facility] [place] [facility] [address] [id number] [place] [address]- 0440 13 Nov, 2011 [facility] [place] [facility] [address] [id number] [place] [address]- 6351 12 Nov, 2011 [facility] [place] [facility] [address] [id number] [place] [address]- 378[address] Sep, [facility] [place] [facility] [address] [id number] [place] [address]- [address] Sep, [facility] [place] [facility] [address] [id number] [place] [address]- 9029 Aug, [facility] [place] [facility] [address] [id number] [place] [address]- 2808 13 Aug, 2011 [facility] [place] [facility] [address] [id number] [place] [address]- 5896 Aug, [facility] [place] [facility] [address] [id number] [place] [address]- [address]406 Aug, [facility] [address] [id number] [place] [address]- 6536 June, [facility] [address] [id number] [place] [address]- 2546 June, [facility] [address] [id number] [place] [address]- 2546 May, [facility] [place] [facility] [address] [id number] [place] [address] 2546 Apr, [facility] [address] [id number] [place] [address]- 7566 Apr, [facility] [place] [facility] [address] [id number] [place] [address]- 2546 Apr, [facility] [facility] [address] [id number] [place] [address] Apr, [facility] [place] [facility] [address] [id number] [place] [address] Apr, [facility] [address] [id number] [place] [address] Apr, [facility] [address] [id number] [place] [address] Mar, [facility] [address] [id number] [place] [address] Mar, [facility] [place] [facility] [address] [id number] [place] [address] Mar, [facility] [place] [facility] [address] [id number] [place] [address] Jan, [facility] [place] [facility] [address] [id number] [place] [address] Jan, [facility] [address] [id number] [place] [address] Jan, [facility] [place] [facility] [address] [id number] [place] [address] Jan, [facility] [place] [facility] [address] [id number] [place] [address] Jan, [facility] [place] [facility] [address] [id number] [place] [address] Jan, [facility] [place] [facility] [address] [id number] [place] [address] Jan, [facility] [place] [facility] [address] [id number] [place] [address] Dec, [facility] [place] [facility] [address] [id number] [place] [address] Dec, [facility] [place] [facility] [address] [id number] [place] [address] Nov, [facility] [place] [facility] [address] [id number] [place] [address] Nov, [facility] [place] [facility] [address] [id number] [place] [address] Nov, [facility] [place] [facility] [address] [id number] [place] [address] Nov, [facility] [place] [facility] [address] [id number] [place] [address] Oct, [facility] [place] [facility] [address] [id number] [place] [address] Sep, [facility] [place] [facility] [address] [id number] [place] [address] Mar, [facility] [place] [facility] [address] [id number] [place] [address] Jan, [facility] [place] [facility] [address] [id number] [place] [address] Dec, [facility] [place] [facility] [address] [id number], [place] [address] 06 Dec, 2009 [facility] [address] [id number] [place] [address] 04 Dec, 2009 [facility] [place] [facility] [address] [id number] [place] [address] Dec, [facility] [place] [facility] [address] [id number] [place] [address] 26 Nov, 2009 [facility] [place] [facility] [address] [id number] [place] 15 Nov, 2009 [facility] [address] [id number] [place] [address] 14 Nov, 2009 [facility] [place] [facility] [address] [id number] [place] [address] 14 Nov, 2009 [facility] [place] [facility] [address] [id number] [place] [address] 13 Oct, 2009 [facility] [place] [facility] [address] [id number] [place] [address] 17 Jul, 2009 [facility] [address] [id number] [place] [address] June, [facility] [place] [facility] [address] [id number] [place] [address] June, [facility] [place] [facility] [address] [id number], [place] [address] Apr, [facility] [place] [facility] [address] [id number], [place] [address] Mar, [facility] [place] [facility] [address] [id number] [place] [address] Jan, [facility] [place] [facility] [address] [id number] [address] Jan, [facility] [place] [facility] [address] [id number] [place] Dec, [facility] [place] [facility] [address] [facility] [id number] [place] [id number] Dec, [facility] [address] [id number], [place] [address] Dec, [facility] [address] [id number], [place] [address] Dec, [facility] [address] [id number], [place] [address] Nov, [facility] [address] [id number], [place] [address] Jul, [facility] [address] [id number], [place] [address] June, IMMUNIZATIONS No Known Immunizations SOCIAL HISTORY Never Assessed REASON FOR VISIT Requests return call PLAN OF CARE VITAL SIGNS MEDICATIONS Unknown Medications RESULTS No Results PROCEDURES No Known procedures INSTRUCTIONS MEDICATIONS ADMINISTERED No Known Medications MEDICAL (GENERAL) HISTORY Type Description Date Medical History hypertension Medical History sleep apnea-did not tolerate CPAP Medical History oxygen dependent at [facility] Medical History colonic polyps [...]
--- OUTSIDE RECORDS SUMMARY | 2018-02-26 18:48 | XMS REPORT ---
Author Author CHRIS STEVENSON [facility] Address [address] [place] [address] Care Team Providers Care Payroll And Benefits Assistant Name Role Phone GRAHAMELLIOTT HANNAHANY Unavailable PROBLEMS Type Condition ICD9-CM Code SMW00-UB Code Onset Dates Condition Status SNOMED Code Problem Pulmonary asbestosis J61 Active 64615924 Problem Left ventricular diastolic dysfunction I51.9 Active 461707710 Problem Chronic gout, unspecified cause, unspecified site M1A.9XX0 Active 26754622 Problem Renal cyst, left N28.1 Active 82492829 Problem History of weight loss surgery Z98.84 Active 011522588 Problem Nocturnal hypoxia G47.34 Active 762203962 Problem Obstructive sleep apnea syndrome G47.33 Active 86466862 Problem History of diverticulitis Z87.19 Active 798670569569488 Problem Allergic rhinitis, unspecified allergic rhinitis type J30.9 Active 61894666 Problem Erectile dysfunction due to diseases classified elsewhere N52.1 Active 834279498 Problem Acute right-sided low back pain with right-sided sciatica M54.41 Active 099724605 Problem Psoriasis L40.9 Active 9255144 Problem Essential hypertension I10 Active 06298465 Problem Nephrolithiasis N20.0 Active 71057126 Problem Chronic prescription opiate use Z79.899 Active 522852757 Problem 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 Active 11217250 Problem Benign prostatic hyperplasia, presence of lower urinary tract symptoms unspecified, unspecified morphology N40.0 Active 170687056 Problem Moderate episode of recurrent major depressive disorder F33.1 Active 641417871 Problem Age-related osteoporosis without current pathological fracture M81.0 Active 65620294 Problem Low back pain M54.5 Active 359319093 Problem Anxiety F41.9 Active 95442083 Problem Urge incontinence N39.41 Active 400224399 Problem Hyperlipidemia, unspecified E78.5 Active 67841500 Problem Esophageal stricture K22.2 Active 41449828 Problem Cervicalgia M54.2 Active 3415780910918 Problem Primary insomnia F51.01 Active 629640653 ALLERGIES No Information ENCOUNTERS Encounter Location Date Diagnosis [facility] [address] [address] Dec, [facility] [address] 42908- 2095 Oct, [facility] [address] 88298- 8175 Oct, [facility] [address] 59[address]- [address] Oct, BMI 45.0-49.9, adult Z68.42 ; Essential hypertension I10 ; Hyperlipidemia, unspecified E78.5 ; Anxiety F41.9 ; Obstructive sleep apnea syndrome G47.33 ; Moderate episode of recurrent major depressive disorder F33.1 ; Left ventricular diastolic dysfunction I51.9 ; Acute pain of right shoulder M25.511 ; Pain of left foot M79.672 and Pain in right foot M79.671 [facility] [address] [address]- 8485 Oct, Anxiety F41.9 [facility] [address] [address] Sep, Left foot pain M79.672 [facility] [address] [address]- 0786 Sep, [facility] [address] 35753- 3191 Sep, Anxiety F41.9 [facility] [address] 03537- 9373 Sep, [facility] [address] 28412- 5478 Aug, [facility] [address] 62960- 4136 Aug, [facility] [id number] [place] [address] 62521- 6565 Aug, Anxiety F41.9 [facility] [id number] [place] [address] 57470- 6706 Aug, [facility] [id number] [place] [address] 31226- 6737 Jul, [facility] [address] 26324- 3336 Jul, Anxiety F41.9 [facility] [id number] [place] [address] 41050- 5533 June, Anxiety F41.9 [facility] [id number] [place] [address] 33071- 7931 June, [facility] [id number] [place] [address] 41137- 2691 June, Low back pain M54.5 ; Chronic prescription opiate use Z79.899 ; Candidal intertrigo B37.2 ; Urge incontinence N39.41 ; Essential hypertension I10 ; Moderate episode of recurrent major depressive disorder F33.1 ; Age-related osteoporosis without current pathological fracture M81.0 and BMI 45.0-49.9, adult Z68.42 [facility] [id number] [place] [address] 29427- 6901 June, [facility] [id number] [place] [address] 28713- 1150 May, Anxiety F41.9 [facility] [id number] [place] [address] 45566- 1714 May, [facility] [id number] [place] [address] 98774- 0383 May, [facility] [id number] [place] [address] 96980- 4173 Apr, Anxiety F41.9 [facility] [id number] [place] [address] 59742- 8407 Apr, [facility] [id number] [place] [address] 28761- 3934 Apr, Low back pain M54.5 [facility] [id number] [place] [address] 64374- 9630 Apr, [facility] [id number] [place] [address] 17931- 9721 Apr, [facility] [id number] [place] [address] 77263- 6902 Apr, Anxiety F41.9 [facility] [id number] [place] [address] 17940- 9694 Apr, Right groin pain R10.31 [facility] [id number] [place] [address] 28135- 2473 Mar, [facility] [id number] [place] [address] 89829- 2333 Mar, [facility] [id number] [place] [address] 01953- 3501 Mar, Anxiety F41.9 [facility] [id number] [place] [address] 65796- 0615 Mar, Low back pain M54.5 [facility] [id number] [place] [address] 00028- 6504 Mar, Right groin pain R10.31 ; Low back pain M54.5 and BMI 45.0- 49.9, adult Z68.42 [facility] [id number] [place] [address] 71284- 2370 Mar, [facility] [id number] [place] [address] 66668- 3671 Mar, [facility] [id number] [place] [address] 15177- 1811 Mar, [facility] [id number] [place] [address] 69129 -5160 Mar, [facility] [id number] [place] [address] 85901 -3728 Mar, Cough R05 ; Pneumonia of right lower lobe due to infectious organism J18.1 and Abnormal chest x-ray R93.8 [facility] [address] 98556- 7398 Mar, [facility] [id number] [place] [address] 71536- 4357 Mar, [facility] [address] 40592- 3616 Jan, Anxiety F41.9 [facility] [address] 27968- 6118 Jan, [facility] [address] 28691- 8939 Jan, Moderate episode of recurrent major depressive disorder F33.1 [facility] [id number] [place] [address] 66695- 8536 Jan, Subacromial bursitis of right shoulder joint M75.51 ; Shortness of breath on exertion R06.02 and BMI 45.0-49.9, adult Z68.42 [facility] [id number] [place] [address] 07161- 7154 Dec, Anxiety F41.9 [facility] [id number] [place] [address] 29414- 9818 Dec, [facility] [address] 23188- 2840 Dec, Low back pain M54.5 [facility] [id number] [place] [address] 44831- 4651 12 Oct, 2016 Low back pain M54.5 [facility] [address] 97563- 3280 Sep, [facility] [address] [address]- 1068 Sep, Erectile dysfunction due to diseases classified elsewhere N52.1 [facility] [address] [address]- 4002 Sep, Erectile dysfunction due to diseases classified elsewhere N52.1 [facility] [address] [place] [address] 17992- 5960 Sep, [facility] [address] [place] [address] 04093- 0421 Sep, Erectile dysfunction due to diseases classified elsewhere N52.1 [facility] [address] [place] [address] 66218- 5863 Sep, Low back pain M54.5 and Anxiety F41.9 [facility] [address] [place] [address] 33781 -1864 Aug, Acute allergic rhinitis J30.9 [facility] [address] [place] [address] 37315- 6593 Aug, [facility] [id number] [place] [address] 33497- 4745 Aug, Anxiety F41.9 [facility] [address] [place] [address] 52520- 3918 Jul, Low back pain M54.5 ; Chronic prescription opiate use Z79.899 and Essential hypertension I10 [facility] [address] [address]- 0912 Jul, Anxiety F41.9 and Low back pain M54.5 [facility] [address] [place] [address] 20511- 9201 June, [facility] [id number] [place] [address] 02118- 8599 June, Anxiety F41.9 [facility] [place] [address] [address]- 6376 May, Low back pain M54.5 [facility] [id number] [place] [address] 42812 2546 May, [facility] [id number] [place] [address] 20114 2546 May, Anxiety F41.9 [facility] [id number] [place] [address] 95091 2546 Apr, [facility] [id number] [place] [address] 29334- 3796 Apr, Low back pain M54.5 [facility] [id number] [place] [address] 85484 2546 Apr, Moderate episode of recurrent major depressive disorder F33.1 [facility] [id number] [place] [address] 31176 2546 Apr, Anxiety F41.9 [facility] [id number] [place] [address] 44955 2546 Apr, Low back pain M54.5 [facility] [id number] [place] [address] 45421 2546 15 Apr, 2016 Elevated alkaline phosphatase level R74.8 [facility] [id number] [place] [address] 40611 2546 10 Apr, 2016 Alkaline phosphatase elevation R74.8 [facility] [address] [place] [address] 96599 2546 06 Apr, 2016 Anxiety F41.9 [facility] [id number] [place] [address] 98988 2546 03 Apr, 2016 Low back pain M54.5 [facility] [address] [place] [address] 90581- 2546 Apr, History of weight loss surgery Z98.84 ; Encounter for hepatitis C screening test for low risk patient Z11.59 ; History of herpes genitalis Z86.19 ; Essential hypertension I10 ; Hyperlipidemia, unspecified E78.5 ; Exposure to STD Z20.2 and Benign prostatic hyperplasia, presence of lower urinary tract symptoms unspecified, unspecified morphology N40.0 [facility] [id number] [place] [address] 05056- 0535 02 Apr, 2016 [facility] [address] 47215- 6315 Mar, [facility] [id number] [place] [address] 69331- 9155 Mar, [facility] [address] 03371- 9144 Mar, [facility] [id number] [place] [address] 05349- 5753 Mar, Acute right-sided low back pain with right-sided sciatica M54.41 [facility] [id number] [place] [address] 02840- 9933 Mar, Low back pain M54.5 [facility] [id number] [place] [address] 15608 -6608 Mar, Muscle strain of chest wall, initial encounter S29.011A ; Muscle strain of right thigh, initial encounter S76.911A and Acute non- recurrent maxillary sinusitis J01.00 [facility] [id number] [place] [address] 45788- 1989 Mar, Benign prostatic hyperplasia, presence of lower urinary tract symptoms unspecified, unspecified morphology N40.0 [facility] [id number] [place] [address] 56984- 4606 Jan, Low back pain M54.5 [facility] [id number] [place] [address] 58815- 5224 Jan, Low back pain M54.5 ; Essential hypertension I10 ; Hyperlipidemia, unspecified E78.5 ; Anxiety F41.9 ; Moderate episode of recurrent major depressive disorder F33.1 ; Primary insomnia F51.01 ; Exposure to STD Z20.2 ; Encounter for hepatitis C screening test for low risk patient Z11.59 and History of herpes genitalis Z86.19 [facility] [id number] [place] [address] 84306- 3765 17 Jan, 2016 [facility] [address] 24101- 2715 20 Dec, 2015 [facility] [address] 00139- 1183 14 Dec, 2015 Anxiety F41.9 ; Cervicalgia M54.2 ; Moderate episode of recurrent major depressive disorder F33.1 and Encounter for immunization Z23 [facility] [id number] [place] [address] 19440- 8775 23 Nov, 2015 [facility] [address] 34331- 6145 Oct, [facility] [id number] [place] [address] 91424- 1159 16 Nov, 2015 [facility] [address] 46314- 8089 09 Nov, 2015 [facility] [id number] [place] [address] 47977- 5504 Sep, [facility] [id number] [place] [address] 28702- 9161 Aug, Low back pain M54.5 ; Anxiety F41.9 ; Primary insomnia F51.01 and Chronic prescription opiate use Z79.899 [facility] [address] 25057- 1275 Jul, [facility] [id number] [place] [address] 42161- 2815 Jul, [facility] [address] 66921- 0739 Jul, [facility] [address] [facility] [id number] [address]- 0517 Jul, [facility] [id number] [place] [address] 23457- 6906 Jul, [facility] [address], [place] [address]- 3777 June, [facility] [id number] [place] [address] 58972- 0773 June, [facility] [id number] [place] [address]- 5018 June, [facility] [id number] [place] [address], [place] [address]- 6450 June, [facility] [address] [place] [address] 44184- 6447 May, Preoperative cardiovascular examination Z01.810 [facility] [address], [place] [address]- 8305 May, [facility] [address], [place] [address]- 2626 Apr, [facility] [id number] [address]- 9139 Apr, Osteoarthritis of right knee M17.9 [facility] [address], [place] [address]- 4101 30 May, 2015 [facility] [address], [place] [address]- 0462 16 May, 2015 [facility] [address], [place] [address]- 9856 Apr, [facility] [id number] [address]- 4945 Apr, [facility] [address], [place] [address]- 2826 08 Mar, 2016 History of excessive cerumen Z78.9 ; Obstructive sleep apnea syndrome G47.33 ; History of diverticulitis Z87.19 and Nephrolithiasis N20.0 [facility] [id number] [place] [address] 25037- 4230 29 Apr, 2015 [facility] [id number] [place] [address] 98299 -0820 23 Apr, 2015 Abdominal pain R10.9 [facility] [id number] [place] [address] 61722- 2458 10 Apr, 2015 [facility] [id number] [place] [address] 87675- 3067 04 Apr, 2015 Osteoarthritis of right knee M17.9 [facility] [id number] [place] [address] 75099- 0536 Mar, [facility] [address] 59515- 8271 15 Mar, 2015 [facility] [id number] [place] [address] 47914- 2043 14 Mar, 2015 [facility] [address] 93269- 0310 Mar, [facility] [id number] [place] [address] 62763 -0840 Mar, Pyelonephritis N12 ; Left-sided thoracic back pain M54.6 ; Hematuria, unspecified R31.9 and Kidney stone N20.0 [facility] [id number] [place] [address] 06871- 3720 12 Mar, 2015 History of weight loss surgery Z98.84 [facility] [address] 46201- 4511 07 Mar, 2015 History of weight loss surgery Z98.84 and Hyperlipidemia, unspecified E78.5 [facility] [id number] [place] [address] 55333- 7126 06 Yousif, 2016 Low back pain M54.5 ; Chronic prescription opiate use Z79.899 ; Hyperlipidemia, unspecified E78.5 ; Spasm of back muscles M62.830 and History of weight loss surgery Z98.84 [facility] [id number] [place] [address] 28037- 5657 Jan, [facility] [id number] [place] [address] 16160- 2542 Jan, [facility] [id number] [place] [address] 92194- 6792 Jan, [facility] [id number] [place] [address] 39519- 6567 Dec, [facility] [id number] [place] [address] 51834- 2179 Dec, [facility] [id number] [place] [address] 63454- 4390 Dec, [facility] [id number] [place] [address] 26080- 4230 Nov, [facility] [id number] [place] [address] 34281- 5815 Nov, Obstructive sleep apnea syndrome G47.33 and Pharyngoesophageal dysphagia R13.14 [facility] [id number] [place] [address] 66846- 7026 Nov, [facility] [id number] [place] [address] 22505- 4926 Nov, [facility] [id number] [place] [address] 98465- 7428 Nov, [facility] [id number] [place] [address] [id number] 30 Oct, 2014 Dental examination V72.2 [facility] [id number] [place] [address] 23965- 3826 Oct, [facility] [address] [place] [address]- 6033 Oct, [facility] [address] [place] [address] 92287- 1119 Oct, [facility] [id number] [place] [address] 89773- 1048 Oct, [facility] [id number] [place] [address] 21009- 4034 Oct, BPH (benign prostatic hyperplasia) 600.00 and Urinary frequency 788.41 [facility] [id number] [place] [address] 12628- 0431 Oct, [facility] [id number] [place] [address] 95494- 3761 Oct, [facility] [id number] [place] [address] 80603- 4169 Oct, [facility] [id number] [place] [address] 25110- 8688 Sep, Cerumen impaction 380.4 ; Cerumen debris on tympanic membrane 380.4 ; Psoriasis 696.1 and MICKY (secretory otitis media) 381.4 [facility] [address] [place] [address] [id number] Sep, Dental examination V72.2 [facility] [id number] [place] [address] 03231- 0209 Sep, Fatigue 780.79 ; Irritable bowel syndrome 564.1 ; Overweight 278.02 ; Poor sleep V69.4 ; Shaking spells 781.0 and Broken tooth 873.63 [facility] [id number] [place] [address] 16684- 5641 Sep, [facility] [id number] [place] [address] 56404- 8189 Sep, [facility] [id number] [place] [address] 65695- 1907 Aug, [facility] [address] [id number] [place] [address]- 1276 Jul, [facility] [address] [facility] [id number] [place] [address]- 2236 Jul, [facility] [address] [facility] [id number] [place] [address]- 2675 Jul, [facility] [id number] [place] [address]- 2486 Jul, [facility] [address] [facility] [id number] [place] [address] June, Arthritis of knee, right 716.96 [facility] [address] [id number] [place] [address] June, [facility] [id number] [place] [address] June, Elevated blood pressure reading without diagnosis of hypertension 796.2 [facility] [address] [id number] [place] [address] June, [facility] [address] [id number] [place] [address] June, [facility] [address] [id number] [place] [address] June, [facility] [address] [id number] [place] [address] June, [facility] [address] [facility] [id number] [place] [address] May, [facility] [address] [facility] [id number] [place] [address] May, [facility] [address] [facility] [id number] [place] Apr, [facility] [address] [id number] [place] [address] Apr, [facility] [place] [facility] [address] [id number] [place] [address] 27 Apr, 2014 [facility] [place] [facility] [address] [id number] [place] [address] 27 Apr, 2014 [facility] [place] [facility] [address] [id number] [place] [address] Apr, [facility] [place] [facility] [address] [id number] [place] [address] 20 Apr, 2014 [facility] [place] [facility] [address] [id number] [place] [address] Apr, [facility] [place] [facility] [address] [id number] [place] [address] Apr, [facility] [place] [facility] [address] [id number] [place] [address] Apr, [facility] [place] [facility] [address] [id number] [place] [address] Apr, [facility] [place] [facility] [address] [id number] [place] [address] Apr, [facility] [place] [facility] [address] [id number] [place] [address] Apr, [facility] [place] [facility] [address] [id number] [place] [address] Apr, [facility] [place] [facility] [address] [id number] [place] [address] Apr, 2014 [facility] [place] [facility] [address] [id number] [place] [address] Apr, [facility] [place] [facility] [address] [id number] [place] [address] 3287 Apr, 2014 [facility] [place] [facility] [address] [id number] [place] [address] 9463 20 Apr, 2014 [facility] [place] [facility] [address] [facility] [id number] [place] [address] 6703 20 Apr, 2014 [facility] [place] [facility] [address] [facility] [id number] [place] [address] 5560 18 Apr, 2014 [facility] [place] [facility] [address] [facility] [id number] [place] [address] 4738 18 Apr, 2014 [facility] [place] [facility] [address] [facility] [id number] [place] [address] 3576 13 Apr, 2014 [facility] [place] [facility] [address] [facility] [id number] [place] [address] 8750 13 Apr, 2014 [facility] [place] [facility] [address] [facility] [id number] [place] [address] 5867 13 Apr, 2014 [facility] [place] [facility] [address] [id number] [place] [address] 7469 13 Apr, 2014 [facility] [place] [facility] [address] [id number] [place] [address] 5684 12 Apr, 2014 [facility] [place] [facility] [address] [facility] [id number] [place] [address]- 7260 Apr, 2014 [facility] [place] [facility] [address] [id number] [place] [address] 9657 Apr, 2014 [facility] [place] [facility] [address] [id number] [address] Apr, 2014 [facility] [place] [facility] [address] [facility] [id number] [address] 8[address] Apr, 2014 [facility] [place] [facility] [address] [facility] [id number] [place] [address]- 9008 Apr, 2014 [facility] [place] [facility] [address] [facility] [id number] [place] [address]- 2071 Apr, 2014 [facility] [place] [facility] [address] [facility] [id number], [place] [address] 05 Apr, 2014 [facility] [place] [facility] [id number] [address] 98[address] Apr, [facility] [address] [id number] [place] [address] 9217 Mar, [facility] [place] [facility] [address] [id number] [place] [address]- 8749 Mar, [facility] [place] [facility] [address] [id number] [place] [address]- 1317 Mar, [facility] [place] [facility] [address] [id number] [place] [address]- 8565 Mar, [facility] [place] [facility] [address] [id number] [place] [address]- 1777 Mar, [facility] [place] [facility] [address] [id number] [place] [address]- 8316 Mar, [facility] [place] [facility] [address] [id number] [place] [address]- 4870 Mar, [facility] [place] [facility] [address] [id number] [place] [address]- 1854 Mar, [facility] [place] [facility] [address] [id number] [place] [address]- 9154 Mar, [facility] [place] [facility] [address] [id number] [place] [address]- 9424 Mar, [facility] [place] [facility] [address] [id number], [place] [address] 7035 Jan, [facility] [place] [facility] [address] [id number] [place] [address]- 3025 Jan, [facility] [place] [facility] [address] [id number] [place] [address]- 4484 Jan, [facility] [place] [facility] [address] [id number] [place] [address]- 8521 Jan, [facility] [place] [facility] [address] [id number] [place] [address]- 1753 Jan, [facility] [place] [facility] [address] [id number] [place] [address]- 9324 Jan, [facility] [place] [facility] [address] [id number] [place] [address]- 9362 Jan, [facility] [place] [facility] [address] [id number] [place] [address]- 3741 Jan, [facility] [place] [facility] [address] [id number] [place] [address]- 5787 Jan, [facility] [place] [facility] [address] [id number] [place] [address]- 5923 Jan, [facility] [place] [facility] [address] [id number] [place] [address]- 8715 Jan, [facility] [place] [facility] [address] [id number] [place] [address]- 2798 Jan, [facility] [place] [facility] [address] [id number] [place] [address]- 0884 Dec, [facility] [place] [facility] [address] [id number] [place] [address]- 5359 Dec, [facility] [place] [facility] [address] [id number] [place] [address]- 3595 Dec, [facility] [place] [facility] [address] [id number] [place] [address]- 1608 Dec, [facility] [place] [facility] [address] [id number] [place] [address]- 8247 Dec, [facility] [place] [facility] [address] [id number] [place] [address]- 0452 Dec, [facility] [place] [facility] [address] [id number] [place] [address]- 6059 Dec, [facility] [place] [facility] [address] [id number] [place] [address] Dec, [facility] [place] [facility] [address] [id number] [place] [address]- 0898 Dec, [facility] [place] [facility] [address] [id number] [place] [address]- 7573 Dec, [facility] [place] [facility] [address] [id number] [place] [address]- 4858 Nov, [facility] [place] [facility] [address] [id number] [place] [address]- 1387 Nov, [facility] [place] [facility] [address] [id number] [place] [address]- 9709 Nov, [facility] [place] [facility] [address] [id number] [place] [address]- 0509 Nov, [facility] [place] [facility] [address] [id number] [place] [address]- 3353 Nov, [facility] [place] [facility] [address] [id number] [place] [address]- 0525 Nov, [facility] [place] [facility] [address] [id number] [place] [address]- 2042 Nov, [facility] [place] [facility] [address] [id number] [place] [address]- 2048 Nov, [facility] [place] [facility] [address] [id number], [place] [address]- 3895 Nov, [facility] [place] [facility] [address] [id number], [place] [address]- 2198 24 Nov, 2013 [facility] [place] [facility] [address] [id number], [place] [address]- 0773 Nov, [facility] [place] [facility] [address] [id number] [place] [address]- 1749 17 Nov, 2013 [facility] [place] [facility] [address] [id number], [place] [address]- 7892 Nov, [facility] [place] [facility] [address] [id number] [place] [address]- 8103 Nov, [facility] [place] [facility] [address] [id number] [place] [address]- 4805 10 Nov, 2013 [facility] [place] [facility] [address] [id number] [place] [address]- 4329 10 Nov, 2013 [facility] [place] [facility] [address] [id number] [place] [address]- 7837 08 Nov, 2013 [facility] [place] [facility] [address] [id number] [place] [address]- 2125 Nov, [facility] [place] [facility] [address] [id number] [place] [address]- 4000 Nov, [facility] [place] [facility] [address] [id number] [place] [address]- 7218 Nov, [facility] [place] [facility] [address] [id number] [place] [address]- 3569 26 Oct, 2013 [facility] [place] [facility] [address] [id number] [place] [address]- 7959 26 Oct, 2013 [facility] [place] [facility] [address] [id number] [place] [address]- 9474 19 Oct, 2013 [facility] [place] [facility] [address] [id number] [place] [address]- 8196 19 Oct, 2013 [facility] [place] [facility] [address] [id number] [place] [address]- 7377 12 Oct, 2013 [facility] [place] [facility] [address] [id number] [place] [address]- 4609 12 Oct, 2013 [facility] [place] [facility] [address] [id number] [place] [address]- 2540 10 Oct, 2013 [facility] [place] [facility] [address] [id number] [place] [address]- 2541 10 Oct, 2013 [facility] [place] [facility] [address] [id number] [place] [address]- 6133 08 Oct, 2013 [facility] [place] [facility] [address] [id number] [place] [address]- 6394 08 Oct2013 [facility] [place] [facility] [address] [id number] [place] [address]- 3834 Sep, [facility] [place] [facility] [address] [id number] [place] [address]- 9070 Sep, [facility] [place] [facility] [address] [id number] [place] [address]- 9333 Sep, [facility] [place] [facility] [address] [id number] [place] [address]- 5009 Sep, [facility] [place] [facility] [address] [id number] [place] [address]- 1375 Sep, [facility] [place] [facility] [address] [id number] [place] [address]- 3265 Sep, [facility] [place] [facility] [address] [id number] [place] [address]- 8132 Sep, [facility] [place] [facility] [address] [id number] [place] [address]- 8412 Sep, [facility] [place] [facility] [address] [id number] [place] [address]- 6146 Sep, [facility] [place] [facility] [address] [id number] [place] [address]- 4600 Sep, [facility] [place] [facility] [address] [id number] [place] [address]- 5679 Sep, [facility] [place] [facility] [address] [id number] [place] [address]- 9431 Sep, [facility] [place] [facility] [address] [id number] [place] [address]- 8406 Sep, [facility] [place] [facility] [address] [id number] [place] [address]- 1265 Sep, [facility] [place] [facility] [address] [id number] [place] [address]- 7013 Sep, [facility] [place] [facility] [address] [id number] [place] [address]- 5043 Sep, [facility] [place] [facility] [address] [id number] [place] [address]- 6140 Sep, [facility] [place] [facility] [address] [id number] [place] [address]- 3753 Sep, [facility] [place] [facility] [address] [id number] [place] [address]- 9292 Sep, [facility] [place] [facility] [address] [id number] [place] [address]- 8220 Sep, [facility] [place] [facility] [address] [id number] [place] [address]- 6204 Sep, [facility] [place] [facility] [address] [id number] [place] [address]- 0327 Sep, [facility] [place] [facility] [address] [id number] [place] [address]- 6573 Sep, [facility] [place] [facility] [address] [id number] [place] [address]- 8226 Sep, [facility] [place] [facility] [address] [id number] [place] [address]- 8458 Sep, [facility] [place] [facility] [address] [id number] [place] [address]- 3017 Aug, [facility] [place] [facility] [address] [id number] [place] [address]- 0362 Aug, [facility] [place] [facility] [address] [id number] [place] [address]- 8636 Aug, [facility] [place] [facility] [address] [id number] [place] [address]- 4608 Aug, [facility] [place] [facility] [address] [id number] [place] [address]- 9598 Aug, [facility] [place] [facility] [address] [id number] [place] [address]- 9091 Aug, [facility] [place] [facility] [address] [id number] [place] [address]- 0181 Aug, [facility] [place] [facility] [address] [id number] [place] [address]- 9704 Aug, [facility] [place] [facility] [address] [id number] [place] [address]- 7772 Aug, [facility] [place] [facility] [address] [id number] [place] [address]- 7210 Aug, [facility] [place] [facility] [address] [id number] [place] [address]- 5424 Aug, [facility] [place] [facility] [address] [id number] [place] [address]- 2470 Aug, [facility] [place] [facility] [address] [id number] [place] [address]- 3470 Aug, [facility] [place] [facility] [address] [id number] [place] [address]- 4935 Jul, [facility] [place] [facility] [address] [id number] [place] [address]- 4332 Jul, [facility] [place] [facility] [address] [id number] [place] [address]- 8525 Jul, [facility] [place] [facility] [address] [id number] [place] [address]- 5070 Jul, [facility] [place] [facility] [address] [id number] [place] [address]- 9811 Jul, [facility] [place] [facility] [address] [id number] [place] [address]- 2686 Jul, [facility] [place] [facility] [address] [id number] [place] [address]- 3996 Jul, [facility] [place] [facility] [address] [id number] [place] [address]- 7330 June, [facility] [place] [facility] [address] [id number] [place] [address]- 4828 June, [facility] [place] [facility] [address] [id number] [place] [address]- 3193 June, [facility] [place] [facility] [address] [id number] [place] [address]- 1767 June, [facility] [place] [facility] [address] [id number] [place] [address]- 3433 May, [facility] [place] [facility] [address] [id number] [place] [address]- 2225 May, [facility] [place] [facility] [address] [id number] [place] [address]- 7316 May, [facility] [place] [facility] [address] [id number] [place] [address]- 8991 May, [facility] [place] [facility] [address] [id number] [place] [address]- 8897 May, [facility] [place] [facility] [address] [id number] [place] [address]- 0318 May, [facility] [place] [facility] [address] [id number] [place] [address]- 9572 May, [facility] [place] [facility] [address] [id number] [place] [address]- 4876 May, [facility] [place] [facility] [address] [id number] [place] [address]- 5323 May, [facility] [place] [facility] [address] [id number] [place] [address]- 3288 May, [facility] [place] [facility] [address] [id number] [place] [address]- 4933 Apr, [facility] [place] [facility] [address] [id number] [place] [address]- 6010 Apr, [facility] [place] [facility] [address] [id number] [place] [address]- 0725 Apr, [facility] [place] [facility] [address] [id number] [place] [address]- 9390 Apr, [facility] [place] [facility] [address] [id number] [place] [address]- 1026 Apr, [facility] [place] [facility] [address] [id number] [place] [address]- 3946 Apr, [facility] [place] [facility] [address] [id number] [place] [address]- 6296 Apr, [facility] [place] [facility] [address] [id number] [place] [address]- 2246 Apr, [facility] [place] [facility] [address] [id number] [place] [address]- 8727 Apr, [facility] [place] [facility] [address] [id number] [place] [address]- 5796 Apr, [facility] [place] [facility] [address] [id number] [place] [address]- 3299 Mar, [facility] [place] [facility] [address] [id number] [place] [address]- 3258 Mar, [facility] [place] [facility] [address] [id number] [place] [address]- 7210 Mar, [facility] [place] [facility] [address] [facility] [id number] [place] [address]- 3407 Mar, [facility] [place] [facility] [address] [id number] [place] [address]- 6815 Mar, [facility] [place] [facility] [address] [id number] [place] [address]- 1042 Mar, [facility] [place] [facility] [address] [id number] [place] [address]- 8768 Jan, [facility] [place] [facility] [address] [id number] [place] [address]- 9396 Jan, [facility] [place] [facility] [address] [id number] [place] [address]- 8650 Jan, [facility] [place] [facility] [address] [id number] [place] [address]- 0696 Jan, [facility] [address] [id number] [place] 6610 Jan, [facility] [address] [id number] [place] [address]014 Jan, [facility] [address] [id number] [place] [address]- 4969 Jan, [facility] [address] [id number] [place] [address]- 3585 Jan, [facility] [address] [id number] [place] [address]- 5352 Jan, [facility] [address] [id number] [place] [address]- 1581 Dec, [facility] [address] [id number] [place] [address]- 7282 Dec, [facility] [address] [id number] [place] [address]- 2392 Dec, [facility] [address] [id number] [place] [address]- 7911 Dec, [facility] [address] [id number] [place] [address]- 3728 Dec, [facility] [address] [id number], [place] [address]- 8577 Dec, [facility] [place] [facility] [address] [id number] [place] [address]- 7929 Dec, [facility] [place] [facility] [address] [id number] [place] [address]- 5315 Dec, [facility] [place] [facility] [address] [id number], [place] [address]- [address] 05 Dec, 2012 [facility] [place] [facility] [address] [id number], [place] [address]- 1297 Dec, [facility] [place] [facility] [address] [id number] [place] [address]- 6633 Dec, [facility] [place] [facility] [address] [id number] [place] [address]- 7640 Nov, [facility] [place] [facility] [address] [id number] [place] [address]- 2777 Nov, [facility] [place] [facility] [address] [id number] [place] [address]- 6554 Nov, [facility] [place] [facility] [address] [id number] [place] [address]- 9355 Nov, [facility] [place] [facility] [address] [id number] [place] [address]- 5172 Nov, [facility] [place] [facility] [address] [id number] [place] [address]- 6024 Oct, [facility] [place] [facility] [address] [id number] [place] [address]- 5662 Oct, [facility] [place] [facility] [address] [id number] [place] [address]- 7858 Sep, [facility] [place] [facility] [address] [id number] [place] [address]- 4057 Aug, [facility] [place] [facility] [address] [id number] [place] [address]- 1393 Aug, [facility] [place] [facility] [address] [id number] [place] [address]- 3667 Aug, [facility] [place] [facility] [address] [id number] [place] [address]- 2992 Aug, [facility] [place] [facility] [address] [id number] [place] [address]- 5214 Jul, [facility] [place] [facility] [address] [id number] [place] [address]- 3018 Jul, [facility] [place] [facility] [address] [id number] [place] [address]- 8681 June, [facility] [address] [id number] [place] [address] June, [facility] [address] [id number] [place] [address] June, [facility] [address] [id number] [place] [address] May, [facility] [address] [id number] [place] [address] May, [facility] [address] [id number] [place] [address] May, [facility] [address] [id number] [place] [address] Apr, [facility] [address] [id number] [place] [address] Apr, [facility] [address] [id number] [place] [address] Apr, [facility] [address] [id number] [place] [address] 14 Apr, 2012 [facility] [address] [id number] [place] [address] Apr, [facility] [address] [id number] [place] [address] Apr, [facility] [address] [id number] [place] [address] Apr, [facility] [address] [id number] [place] [address] Apr, [facility] [address] [id number] [place] [address] Apr, [facility] [address] [id number] [place] [address] Apr, [facility] [address] [id number] [place] [address] Apr, [facility] [address] [id number] [place] [address] Apr, [facility] [address] [id number] [place] [address] Apr, [facility] [place] [facility] [address] [id number] [place] [address] Mar, [facility] [address] [id number] [place] [address] Mar, [facility] [address] [id number] [place] [address] Mar, [facility] [address] [id number] [place] [address] Mar, [facility] [address] [id number] [place] [address] Mar, [facility] [address] [id number] [place] [address] 28 Jan, 2012 [facility] [address] [id number] [place] [address] 28 Jan, 2012 [facility] [address] [id number] [place] [address] 22 Jan, 2012 [facility] [place] [facility] [address] [id number] [place] [address] 22 Jan, 2012 [facility] [place] [facility] [address] [id number] [place] [address] 14 Jan, 2012 [facility] [place] [facility] [address] [id number] [place] [address] 13 Jan, 2012 [facility] [place] [facility] [address] [id number] [place] [address] 13 Jan, 2012 [facility] [place] [facility] [address] [id number] [place] [address] 11 Jan, 2012 [facility] [place] [facility] [address] [id number] [place] [address] 06 Jan, 2012 [facility] [place] [facility] [address] [id number] [place] [address] 06 Jan, 2012 [facility] [address] [id number] [place] [address] 04 Jan, 2012 [facility] [place] [facility] [address] [id number] [place] [address] Jan, [facility] [place] [facility] [address] [id number] [place] [address] Jan, [facility] [place] [facility] [address] [id number] [place] [address] Jan, [facility] [place] [facility] [address] [id number] [place] [address] Dec, [facility] [address] [id number] [place] [address] 26 Jan, 2012 [facility] [place] [facility] [address] [id number] [place] [address] 19 Jan, 2012 [facility] [address] [id number] [place] [address] 19 Jan, 2012 [facility] [place] [facility] [address] [id number] [place] [address] 15 Jan, 2012 [facility] [place] [facility] [address] [id number] [place] [address] 15 Jan, 2012 [facility] [place] [facility] [address] [id number] [place] [address] 14 Jan, 2012 [facility] [place] [facility] [address] [id number] [place] [address] 14 Jan, 2012 [facility] [place] [facility] [address] [id number] [place] [address] 14 Jan, 2012 [facility] [place] [facility] [address] [id number] [place] [address] 7933 14 Jan, 2012 [facility] [place] [facility] [address] [id number] [place] [address]478 07 Jan, 2012 [facility] [place] [facility] [address] [id number] [place] [address] 07 Jan, 2012 [facility] [place] [facility] [address] [id number] [place] [address]- 2496 16 Dec, 2011 [facility] [place] [facility] [address] [id number] [place] [address] 16 Dec, 2011 [facility] [place] [facility] [address] [id number] [place] [address]- 1043 13 Nov, 2011 [facility] [place] [facility] [address] [id number] [place] [address] 13 Nov, 2011 [facility] [place] [facility] [address] [id number] [place] [address] 18[address] 13 Nov, 2011 [facility] [place] [facility] [address] [id number] [place] [address]- 4468 12 Nov, 2011 [facility] [place] [facility] [address] [id number] [place] [address] 8690 30 Oct, 2011 [facility] [place] [facility] [address] [id number] [place] [address]- [address] Sep, [facility] [place] [facility] [address] [id number] [place] [address]- 83[address] 23 Aug, 2011 [facility] [place] [facility] [address] [id number] [place] [address]- 269[address] 13 Aug, 2011 [facility] [place] [facility] [address] [id number] [place] [address]- [address] Aug, [facility] [place] [facility] [address] [id number] [place] [address] Aug, [facility] [place] [facility] [address] [id number] [place] [address] June, [facility] [address] [id number] [place] [address] 25[address] June, [facility] [place] [facility] [address] [id number] [place] [address] 2546 May, [facility] [address] [id number] [place] [address] 2546 Apr, [facility] [place] [facility] [address] [id number] [place] [address] 2546 Apr, [facility] [address] [id number] [place] [address] 2546 Apr, [facility] [place] [facility] [address] [id number] [place] [address]- [address]46 Apr, [facility] [address] [id number] [place] [address] 9616 Apr, [facility] [place] [facility] [address] [id number] [place] [address] 8826 Apr, [facility] [address] [id number] [place] [address] Mar, [facility] [address] [id number] [place] [address]- 2546 Mar, [facility] [address] [id number] [place] [address] Mar, [facility] [place] [facility] [address] [id number] [place] [address] Jan, [facility] [place] [facility] [address] [id number] [place] [address] Jan, [facility] [place] [facility] [address] [id number] [place] [address] Jan, [facility] [place] [facility] [address] [id number] [place] [address] Jan, [facility] [place] [facility] [address] [id number] [place] [address] Jan, [facility] [place] [facility] [address] [id number] [place] [address] Jan, [facility] [place] [facility] [address] [id number] [place] [address] Jan, [facility] [place] [facility] [address] [id number] [place] [address] Dec, [facility] [place] [facility] [address] [id number] [place] [address] Dec, [facility] [place] [facility] [address] [id number] [place] [address] Nov, [facility] [place] [facility] [address] [id number] [place] [address] Nov, [facility] [place] [facility] [address] [id number] [place] [address] Nov, [facility] [place] [facility] [address] [id number] [place] [address] Nov, [facility] [place] [facility] [address] [id number] [place] [address] Oct, [facility] [place] [facility] [address] [id number] [place] [address] Sep, [facility] [place] [facility] [address] [id number] [place] [address] Mar, [facility] [place] [facility] [address] [id number] [place] [address] Jan, [facility] [place] [facility] [address] [id number] [place] [address] Dec, [facility] [place] [facility] [address] [id number] [place] [address] Dec, [facility] [place] [facility] [address] [id number], [place] [address] 04 Dec, 2009 [facility] [address] [id number] [place] [address] Dec, [facility] [place] [facility] [address] [id number] [place] [address] 26 Nov, 2009 [facility] [place] [facility] [address] [id number] [place] [address] 15 Nov, 2009 [facility] [place] [facility] [address] [id number] [place] [address] 14 Nov, 2009 [facility] [address] [id number] [place] [address] 14 Nov, 2009 [facility] [place] [facility] [address] [id number] [place] [address] 13 Oct, 2009 [facility] [place] [facility] [address] [id number] [place] [address] 17 Jul, 2009 [facility] [place] [facility] [address] [id number] [place] [address] June, [facility] [address] [id number], [place] [address] June, [facility] [place] [facility] [address] [id number], [place] [address] 17 Apr, 2009 [facility] [place] [facility] [address] [id number], [place] [address] Mar, [facility] [place] [facility] [address] [id number], [place] [address] Jan, [facility] [place] [facility] [address] [id number] [address] Jan, [facility] [place] [facility] [address] [id number], [place] [address] Dec, [facility] [place] [facility] [address] [id number] [place] [address] Dec, [facility] [place] [facility] [address] [facility] [id number] [place] [address] Dec, [facility] [address] [facility] [id number], [place] [address] Dec, [facility] [address] [facility] [id number], [place] [address] Nov, [place] [address] [facility] [id number], [place] [address] Jul, [facility] [address] [facility] [id number][place] [address] [address] June, IMMUNIZATIONS No Known Immunizations SOCIAL HISTORY Never Assessed REASON FOR VISIT Controlled Medication Refill PLAN OF CARE VITAL SIGNS MEDICATIONS Medication [...] colonoscopy ([place]es)-polyp removed 10/2009 Surgical History EGD (Su)-gastritis 10/2009 [...]
--- OUTSIDE RECORDS SUMMARY | 2018-02-26 18:49 | XMS REPORT ---
Author Author PARAS NAZARIO [facility] Address [address] [place] [address] Care Team Providers Care Insole Taper Name Role Phone PARAS NAZARIO Unavailable PROBLEMS Type Condition ICD9-CM Code UWM33-FH Code Onset Dates Condition Status SNOMED Code Problem Pulmonary asbestosis J61 Active 70248046 Problem Left ventricular diastolic dysfunction I51.9 Active 290823042 Problem Chronic gout, unspecified cause, unspecified site M1A.[id number] Active 92599248 Problem Renal cyst, left N28.1 Active 96356296 Problem History of weight loss surgery Z98.84 Active 253356008 Problem Nocturnal hypoxia G47.34 Active 919951283 Problem Obstructive sleep apnea syndrome G47.33 Active 31682646 Problem History of diverticulitis Z87.19 Active [id number] Problem Allergic rhinitis, unspecified allergic rhinitis type J30.9 Active 99518450 Problem Erectile dysfunction due to diseases classified elsewhere N52.1 Active 119899971 Problem Acute right-sided low back pain with right-sided sciatica M54.41 Active 607877962 Problem Psoriasis L40.9 Active 9998213 Problem Essential hypertension I10 Active 69769788 Problem Nephrolithiasis N20.0 Active 52918886 Problem Chronic prescription opiate use Z79.899 Active 742530238 Problem 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 Active 11601636 Problem Benign prostatic hyperplasia, presence of lower urinary tract symptoms unspecified, unspecified morphology N40.0 Active 739932665 Problem Moderate episode of recurrent major depressive disorder F33.1 Active 610008906 Problem Age-related osteoporosis without current pathological fracture M81.0 Active 57107817 Problem Low back pain M54.5 Active 815543738 Problem Anxiety F41.9 Active 85771685 Problem Urge incontinence N39.41 Active 188349769 Problem Hyperlipidemia, unspecified E78.5 Active 41971197 Problem Esophageal stricture K22.2 Active 73203702 Problem Cervicalgia M54.2 Active 0078829354058 Problem Primary insomnia F51.01 Active 644801991 ALLERGIES Substance Reaction Event Type Date Status Sulfamethoxazole-Trimethoprim nausea Drug Allergy Sep, Active Penicillin V Potassium rash Drug Allergy Sep, Active Benazepril HCl hypotension Drug Allergy Sep, Active ENCOUNTERS Encounter Location Date Diagnosis [facility] [id number] [place] [address] 86676- 0951 Dec, [facility] [address] 86541- 4037 Oct, [facility] [address] 99329- 9908 Oct, [place] [address] 20903- 9401 18 Oct, 2017 BMI 45.0-49.9, adult Z68.42 ; Essential hypertension I10 ; Hyperlipidemia, unspecified E78.5 ; Anxiety F41.9 ; Obstructive sleep apnea syndrome G47.33 ; Moderate episode of recurrent major depressive disorder F33.1 ; Left ventricular diastolic dysfunction I51.9 ; Acute pain of right shoulder M25.511 ; Pain of left foot M79.672 and Pain in right foot M79.671 [facility] [id number] [place] [address] 89572- 1094 Oct, Anxiety F41.9 [facility] [id number] [place] [address] 76897 -6817 Sep, Left foot pain M79.672 [facility] [id number] [place] [address] 30103- 7954 Sep, [facility] [address] 16500- 6734 Sep, Anxiety F41.9 [facility] [id number] [place] [address] 78112- 8329 Sep, [facility] [address] 21182- 3071 Aug, [facility] [address], [place] [address]- 2234 Aug, [facility] [id number] [place] [address] 71726- 2776 Aug, Anxiety F41.9 [facility] [id number] [place] [address] 78204- 5725 Aug, [facility] [id number] [place] [address] 48969- 6305 Jul, [facility] [id number] [place] [address] 90648- 7416 Jul, Anxiety F41.9 [facility] [id number] [place] [address] 75666- 8548 June, Anxiety F41.9 [facility] [id number] [place] [address] 40620- 3586 June, [facility] [id number] [place] [address] 31769- 2312 June, Low back pain M54.5 ; Chronic prescription opiate use Z79.899 ; Candidal intertrigo B37.2 ; Urge incontinence N39.41 ; Essential hypertension I10 ; Moderate episode of recurrent major depressive disorder F33.1 ; Age-related osteoporosis without current pathological fracture M81.0 and BMI 45.0-49.9, adult Z68.42 [facility] [address] [place] [address] 37507- 3175 June, [facility] [id number] [place] [address] 92187- 1447 May, Anxiety F41.9 [facility] [id number] [place] [address] 79111- 9298 May, [facility] [address] [place] [address]- 4409 May, [facility] [address] [place] [address]- 0830 Apr, Anxiety F41.9 [facility] [id number] [place] [address] 02240- 2146 Apr, [facility] [id number] [place] [address] 79200- 8735 Apr, Low back pain M54.5 [facility] [id number] [place] [address] 12029- 0197 Apr, [facility] [id number] [place] [address] 30455- 3278 Apr, [facility] [id number] [place] [address] 43879- 5080 Apr, Anxiety F41.9 [facility] [id number] [place] [address] 68045- 9210 Apr, Right groin pain R10.31 [facility] [id number] [place] [address] 41079- 5726 Mar, [facility] [id number] [place] [address] 60056- 3680 Mar, [facility] [id number] [place] [address] 06287- 5233 Mar, Anxiety F41.9 [facility] [id number] [place] [address] 39144- 0648 Mar, Low back pain M54.5 [facility] [id number] [place] [address] 03616- 7272 Mar, Right groin pain R10.31 ; Low back pain M54.5 and BMI 45.0- 49.9, adult Z68.42 [facility] [address] [place] [address] 72325- 7035 Mar, [facility] [id number] [place] [address] 17068- 5390 Mar, [facility] [address], [place] [address]- 8814 Mar, [facility] [id number] [place] [address] 14853 -4264 Mar, [facility] [id number] [place] [address] 82859 -0749 Mar, Cough R05 ; Pneumonia of right lower lobe due to infectious organism J18.1 and Abnormal chest x-ray R93.8 [facility] [id number] [place] [address] 11343- 4961 Mar, [place] [id number] [place] [address] 75648- 6745 Mar, [facility] [id number] [place] [address] 14220- 6287 Jan, Anxiety F41.9 [place] [id number] [place] [address] 09685- 4575 Jan, [place] [id number] [place] [address] 31048- 2604 Jan, Moderate episode of recurrent major depressive disorder F33.1 [place] [id number] [place] [address] 04552- 7594 Jan, Subacromial bursitis of right shoulder joint M75.51 ; Shortness of breath on exertion R06.02 and BMI 45.0-49.9, adult Z68.42 [facility] [address] [place] [address] 05287- 1217 Dec, Anxiety F41.9 [facility] [id number] [place] [address] 41102- 7424 Dec, [facility] [address] [place] [address] 88852- 5469 Dec, Low back pain M54.5 [place] [id number] [place] [address] 97729- 7346 Oct, Low back pain M54.5 [facility] [id number] [place] [address] 38102- 4109 Sep, [facility] [id number] [place] [address] 91245- 2910 Sep, Erectile dysfunction due to diseases classified elsewhere N52.1 [facility] [id number] [place] [address] 29870- 3387 Sep, Erectile dysfunction due to diseases classified elsewhere N52.1 [facility] [id number] [place] [address] 28489- 5608 Sep, [facility] [id number] [place] [address] 80033- 2716 Sep, Erectile dysfunction due to diseases classified elsewhere N52.1 [facility] [id number] [place] [address] 87263- 2646 Sep, Low back pain M54.5 and Anxiety F41.9 [facility] [id number] [place] [address] 19088 -4516 Aug, Acute allergic rhinitis J30.9 [facility] [address] [place] [address] 65201- 6227 Aug, [facility] [id number] [place] [address] 45523- 7880 Aug, Anxiety F41.9 [facility] [id number] [place] [address] 57712- 5497 Jul, Low back pain M54.5 ; Chronic prescription opiate use Z79.899 and Essential hypertension I10 [facility] [id number] [place] [address] 13943- 2589 Jul, Anxiety F41.9 and Low back pain M54.5 [facility] [id number] [place] [address] 59365- 1132 June, [facility] [address] [place] [address] 37449- 6469 June, Anxiety F41.9 [facility] [address] [place] [address] 150450- 6826 May, Low back pain M54.5 [facility] [address] [place] [address] 71568- 4266 May, [facility] [id number] [place] [address] 87216- 9156 May, Anxiety F41.9 [facility] [id number] [place] [address] 83264- 7680 Apr, [facility] [id number] [place] [address] 17805- 3488 Apr, Low back pain M54.5 [facility] [id number] [place] [address] 30945- 7204 Apr, Moderate episode of recurrent major depressive disorder F33.1 [facility] [id number] [place] [address] 56360- 2841 Apr, Anxiety F41.9 [facility] [id number] [place] [address] 23798- 4000 Apr, Low back pain M54.5 [facility] [address] [place] [address] 99756- 9109 15 Apr, 2016 Elevated alkaline phosphatase level R74.8 [facility] [address] [place] [address] 21259- 0904 Apr, Alkaline phosphatase elevation R74.8 [facility] [id number] [place] [address] 60078- 6506 Apr, Anxiety F41.9 [facility] [address] [place] [address] 75266- 7506 Apr, Low back pain M54.5 [facility] [address], [place] [address]- 4580 03 Apr, 2017 History of weight loss surgery Z98.84 ; Encounter for hepatitis C screening test for low risk patient Z11.59 ; History of herpes genitalis Z86.19 ; Essential hypertension I10 ; Hyperlipidemia, unspecified E78.5 ; Exposure to STD Z20.2 and Benign prostatic hyperplasia, presence of lower urinary tract symptoms unspecified, unspecified morphology N40.0 [facility] [id number] [place] [address] 48348- 8724 02 Apr, 2016 [place] [id number] [place] [address] 10671- 9112 Mar, [place] [id number] [place] [address] 29829- 4460 Mar, [place] [id number] [place] [address] 51402- 1499 Mar, [facility] [id number] [place] [address] 78260- 2037 Mar, Acute right-sided low back pain with right-sided sciatica M54.41 [place] [id number] [place] [address] 93278- 7223 Mar, Low back pain M54.5 [facility] [address], [place] [address] -2524 Mar, Muscle strain of chest wall, initial encounter S29.011A ; Muscle strain of right thigh, initial encounter S76.911A and Acute non- recurrent maxillary sinusitis J01.00 [place] [id number] [place] [address] 55888- 2665 Mar, Benign prostatic hyperplasia, presence of lower urinary tract symptoms unspecified, unspecified morphology N40.0 [facility] [address] [place] [address] 07239- 9263 Jan, Low back pain M54.5 [facility] [id number] [place] [address] 67092- 5423 13 Jan, 2016 Low back pain M54.5 ; Essential hypertension I10 ; Hyperlipidemia, unspecified E78.5 ; Anxiety F41.9 ; Moderate episode of recurrent major depressive disorder F33.1 ; Primary insomnia F51.01 ; Exposure to STD Z20.2 ; Encounter for hepatitis C screening test for low risk patient Z11.59 and History of herpes genitalis Z86.19 [place] [address] 52447- 0201 17 Jan, 2016 [facility] [address] 04095- 4833 20 Dec, 2015 [place] [address] 84796- 1695 14 Dec, 2015 Anxiety F41.9 ; Cervicalgia M54.2 ; Moderate episode of recurrent major depressive disorder F33.1 and Encounter for immunization Z23 [place] [address] 03102- 0427 23 Nov, 2015 [place] [address] 26572- 3632 22 Nov, 2015 [place] [address] 43170- 2012 16 Nov, 2015 [place] [id number] [place] [address] 45170- 4833 09 Nov, 2015 [place] [id number] [place] [address] 56712- 0895 Sep, [facility] [address] 23977- 4821 Aug, Low back pain M54.5 ; Anxiety F41.9 ; Primary insomnia F51.01 and Chronic prescription opiate use Z79.899 [facility] [id number] [place] [address] 09354- 8635 Jul, [facility] [address] 77842- 8344 Jul, [facility] [address] [facility] [id number] [place] [address]- 0947 Jul, [facility] [id number] [address]- 5163 Jul, [facility] [address] [place] [address]- 6640 Jul, [facility] [id number], [place] [address]- 3834 June, [facility] [address] [place] [address], [place] [address]- 8083 June, [facility] [address] [address]- 6567 June, [facility] [address] [place] [address] 06342- 2473 June, [facility] [address], [place] [address]- 1142 May, Preoperative cardiovascular examination Z01.810 [facility] [address], [place] [address]- 6154 May, [facility] [address], [place] [address]- 0417 Apr, [facility] [address], [place] [address]- 8306 Apr, Osteoarthritis of right knee M17.9 [facility] [id number] [place] [address]- 3016 30 May, 2015 [facility] [address], [place] [address]- 8660 16 May, 2015 [facility] [id number] [address]- 3755 Apr, [facility] [address] [place] [address] 41962- 4447 Apr, [facility] [id number] [place] [address] 49759- 7460 Apr, History of excessive cerumen Z78.9 ; Obstructive sleep apnea syndrome G47.33 ; History of diverticulitis Z87.19 and Nephrolithiasis N20.0 [place] [id number] [place] [address] 02335- 1887 Apr, [facility] [id number] [place] [address] 70602 -4434 Apr, Abdominal pain R10.9 [place] [address] 65274- 9019 Apr, [place] [id number] [place] [address] 63945- 7160 Apr, Osteoarthritis of right knee M17.9 [place] [address] 09169- 6202 Mar, [place] [id number] [place] [address] 67260- 4478 Mar, [place] [id number] [place] [address] 65952- 2687 Mar, [place] [id number] [place] [address] 50192- 6225 Mar, [facility] [id number] [place] [address] 16401 -2216 Mar, Pyelonephritis N12 ; Left-sided thoracic back pain M54.6 ; Hematuria, unspecified R31.9 and Kidney stone N20.0 [place] [address] [place] [address] 75828- 5594 12 Mar, 2015 History of weight loss surgery Z98.84 [place] [address] [place] [address] 80340- 2052 07 Mar, 2015 History of weight loss surgery Z98.84 and Hyperlipidemia, unspecified E78.5 [facility] [address] [place] [address] 41709- 5437 06 Mar, 2016 Low back pain M54.5 ; Chronic prescription opiate use Z79.899 ; Hyperlipidemia, unspecified E78.5 ; Spasm of back muscles M62.830 and History of weight loss surgery Z98.84 [facility] [id number] [place] [address] 25658- 2880 Jan, [facility] [id number] [place] [address] 83253- 7765 Jan, [facility] [id number] [place] [address] 97973- 4045 Jan, [facility] [id number] [place] [address] 10735- 7076 Dec, [facility] [id number] [place] [address] 11370- 3961 Dec, [facility] [id number] [place] [address] 09827- 3841 Dec, [facility] [id number] [place] [address] 31284- 2715 Nov, [facility] [id number] [place] [address] 43452- 3459 Nov, Obstructive sleep apnea syndrome G47.33 and Pharyngoesophageal dysphagia R13.14 [facility] [id number] [place] [address] 57819- 2198 Nov, [facility] [id number] [place] [address] 35202- 6862 Nov, [facility] [id number] [place] [address] 06821- 8397 Nov, [facility] [address] [place] [address] [id number] 30 Oct, 2014 Dental examination V72.2 [facility] [address] [place] [address] 78652- 0067 Oct, [facility] [id number] [place] [address] 48512- 2399 Oct, [facility] [id number] [place] [address] 34047- 5435 Oct, [facility] [address] 15931- 5126 Oct, [facility] [id number] [place] [address] 37203- 1279 Oct, BPH (benign prostatic hyperplasia) 600.00 and Urinary frequency 788.41 [facility] [id number] [place] [address] 50089- 7943 Oct, [facility] [id number] [place] [address] 39586- 9480 Oct, [facility] [id number] [place] [address] 65589- 7582 Oct, [facility] [id number] [place] [address] 40859- 8046 Sep, Cerumen impaction 380.4 ; Cerumen debris on tympanic membrane 380.4 ; Psoriasis 696.1 and MICKY (secretory otitis media) 381.4 [facility] [address] [place] [address] [id number] Sep, Dental examination V72.2 [facility] [address] [place] [address] 22302- 5039 Sep, Fatigue 780.79 ; Irritable bowel syndrome 564.1 ; Overweight 278.02 ; Poor sleep V69.4 ; Shaking spells 781.0 and Broken tooth 873.63 [facility] [id number] [place] [address] 71709- 7727 Sep, [facility] [id number] [place] [address] 02813- 7713 Sep, [facility] [id number], [place] [address]- 1904 Aug, [facility] [address]- 6524 Jul, [facility] [id number], [place] [address]- 1133 Jul, [facility] [id number] [address]- 0547 Jul, [facility] [id number], [place] [address]- 6573 Jul, [facility] [address], [place] [address]- 7262 June, Arthritis of knee, right 716.96 [facility] [address], [place] [address]- 1587 June, [facility] [address], [place] [address]- 9170 June, Elevated blood pressure reading without diagnosis of hypertension 796.2 [facility] [address], [place] [address]- 3569 June, [facility] [id number] [address]- 1583 June, [facility] [address], [place] [address]- 2651 June, [facility] [id number], [place] [address]- 8337 June, [facility] [id number] [address]- 6771 May, [facility] [id number] 6053 May, [facility] [address], [place] [address]- 8506 Apr, [facility] [place] [facility] [address] [id number] [place] [address] 30 Apr, 2014 [facility] [place] [facility] [address] [id number] [place] [address] Apr, [facility] [place] [facility] [address] [id number] [place] [address] Apr, [facility] [place] [facility] [address] [id number] [place] [address] Apr, [facility] [place] [facility] [address] [id number] [place] [address] Apr, [facility] [place] [facility] [address] [facility] [id number] [place] [address] Apr, [facility] [place] [facility] [address] [facility] [id number] [place] [address] Apr, [facility] [place] [facility] [address] [facility] [id number] [place] [address] Apr, [facility] [place] [facility] [address] [facility] [id number] [place] [address] Apr, [facility] [place] [facility] [address] [facility] [id number] [place] [address] Apr, [facility] [place] [facility] [address] [id number] [place] [address] Apr, 2014 [facility] [facility] [address] [facility] [id number] [address] Apr, 2014 [facility] [place] [facility] [address] [id number] [place] [address] 7006 Apr, 2014 [facility] [place] [facility] [address] [facility] [id number] [place] [address] 4100 Apr, 2014 [facility] [place] [facility] [address] [facility] [id number], [place] [address] Apr, 2014 [facility] [place] [facility] [address] [id number] [place] [address]- 6315 Apr, 2014 [facility] [place] [facility] [address] [id number] [place] [address]- 5946 20 Apr, 2014 [facility] [place] [facility] [address] [facility] [id number] [place] [address]- 6456 18 Apr, 2014 [facility] [place] [facility] [address] [facility] [id number] [place] [address]- 2545 18 Apr, 2014 [facility] [place] [facility] [address] [id number] [place] [address]- 1764 13 Apr, 2014 [facility] [place] [facility] [address] [facility] [id number] [place] [address]- 0632 13 Apr, 2014 [facility] [place] [facility] [address] [facility] [id number] [place] [address]- 7245 13 Apr, 2014 [facility] [place] [facility] [address] [facility] [id number] [place] [address]- 2871 Apr, 2014 [facility] [place] [facility] [address] [facility] [id number] [place] [address]- 3217 12 Apr, 2014 [facility] [place] [facility] [address] [facility] [id number] [place] [address]- 8155 12 Apr, 2014 [facility] [place] [facility] [address] [facility] [id number] [place] [address]- 7351 Apr, 2014 [facility] [place] [facility] [address] [facility] [id number] [place] [address]- 2540 Apr, 2014 [facility] [place] [facility] [address] [facility] [id number] [place] [address]- 2649 Apr, 2014 [facility] [place] [facility] [address] [facility] [id number] [place] [address]- 8442 Apr, 2014 [facility] [place] [facility] [address] [facility] [id number] [place] [address]- 4721 Apr, 2014 [facility] [place] [facility] [address] [id number] [place] [address]- 8488 Apr, [facility] [place] [facility] [address] [id number] [place] [address]- 5459 Apr, [facility] [place] [facility] [address] [id number] [place] [address]- 4049 Mar, [facility] [place] [facility] [address] [id number] [place] [address]- 7640 Mar, [facility] [place] [facility] [address] [id number] [place] [address]- 2097 Mar, [facility] [place] [facility] [address] [id number] [place] [address]- 0928 Mar, [facility] [address] [id number] [place] [address]- 3698 Mar, [facility] [facility] [address] [id number] [place] [address]- 7434 Mar, [facility] [place] [facility] [address] [id number] [place] [address]- 0819 Mar, [facility] [address] [id number] [place] [address]- 0575 Mar, [facility] [address] [id number] [place] [address]- 2044 Mar, [facility] [facility] [address] [id number] [place] [address]- 1756 Mar, [facility] [place] [facility] [address] [id number] [place] [address]- 9780 Jan, [facility] [place] [facility] [address] [id number] [place] [address]- 0205 Jan, [facility] [address] [id number] [place] [address]- 0386 Jan, [facility] [place] [facility] [address] [id number] [place] [address]- 5680 Jan, [facility] [place] [facility] [address] [id number] [place] [address]- 4823 Jan, [facility] [place] [facility] [address] [id number] [place] [address]- 1974 Jan, [facility] [place] [facility] [address] [facility] [id number] [place]32 Jan, [facility] [place] [facility] [address] [id number] [place] [address]- 6763 Jan, [facility] [place] [facility] [address] [id number] [place] [address]- 8548 Jan, [facility] [place] [facility] [address] [id number] [place] [address]- 0245 Jan, [facility] [place] [facility] [address] [id number] [place] [address]- 6615 Jan, [facility] [place] [facility] [address] [id number] [place] [address]- 1957 Jan, [facility] [place] [facility] [address] [id number] [place] [address]- 5389 Dec, [facility] [place] [facility] [address] [id number] [place] [address]- 5139 Dec, [facility] [place] [facility] [address] [id number], [place] [address]- 8028 Dec, [facility] [facility] [address] [id number], [place] [address]- 9018 Dec, [facility] [place] [facility] [address] [id number] [place] [address]- 8138 Dec, [facility] [place] [facility] [address] [id number] [place] [address]- 1107 Dec, [facility] [place] [facility] [address] [id number] [place] [address]- 6236 Dec, [facility] [place] [facility] [address] [id number] [place] [address]- 0640 Dec, [facility] [place] [facility] [address] [id number] [place] [address]- 7729 Dec, [facility] [place] [facility] [address] [id number] [place] [address]- 6115 Dec, [facility] [place] [facility] [address] [id number] [place] [address]- 9903 Nov, [facility] [place] [facility] [address] [id number] [place] [address]- 4464 Nov, [facility] [place] [facility] [address] [id number] [place] [address]- 5617 Nov, [facility] [place] [facility] [address] [id number] [place] [address]- 6593 Nov, [facility] [place] [facility] [address] [id number] [place] [address]- 4178 Nov, [facility] [place] [facility] [address] [id number] [place] [address]- 9754 Nov, [facility] [place] [facility] [address] [id number] [place] [address]- 1450 Nov, [facility] [place] [facility] [address] [id number] [place] [address]- 6740 Nov, [facility] [place] [facility] [address] [id number] [place] [address]- 6740 24 Nov, 2013 [facility] [place] [facility] [address] [id number] [place] [address]- 5179 24 Nov, 2013 [facility] [place] [facility] [address] [id number] [place] [address]- 9779 Nov, [facility] [place] [address] [id number] [place] [address]- 1613 17 Nov, 2013 [facility] [place] [facility] [address] [id number] [place] [address]- 8731 14 Nov, 2013 [facility] [place] [facility] [address] [id number] [place] [address]- 6522 14 Nov, 2013 [facility] [place] [facility] [address] [id number] [place] [address]- 7570 Nov, [facility] [place] [facility] [address] [id number] [place] [address]- 6093 10 Nov, 2013 [facility] [place] [facility] [address] [id number] [place] [address]- 6309 Nov, [facility] [place] [facility] [address] [id number] [place] [address]- 6991 08 Nov, 2013 [facility] [place] [facility] [address] [id number] [place] [address]- 8570 Nov, [facility] [place] [facility] [address] [id number] [place] [address]- 7694 Nov, [facility] [place] [facility] [address] [id number] [place] [address]- 1636 26 Oct, 2013 [facility] [place] [facility] [address] [id number] [place] [address]- 9658 26 Oct, 2013 [facility] [place] [facility] [address] [id number] [place] [address]- 2960 19 Oct, 2013 [facility] [place] [facility] [address] [id number] [place] [address]- 2403 19 Oct, 2013 [facility] [place] [facility] [address] [id number] [place] [address]- 5979 12 Oct, 2013 [facility] [place] [facility] [address] [id number] [place] [address]- 0671 12 Oct, 2013 [facility] [place] [facility] [address] [id number] [place] [address]- 3066 10 Oct, 2013 [facility] [place] [facility] [address] [id number] [place] [address]- 9794 10 Oct, 2013 [facility] [place] [facility] [address] [id number] [place] [address]- 8930 Oct, [facility] [place] [facility] [address] [id number] [place] [address]- 1237 Oct, [facility] [place] [facility] [address] [id number] [place] [address]- 9027 Sep, [facility] [place] [facility] [address] [id number] [place] [address]- 1262 Sep, [facility] [place] [facility] [address] [id number] [place] [address]- 0688 Sep, [facility] [place] [facility] [address] [id number] [place] [address]- 3662 Sep, [facility] [place] [address] [id number] [place] [address]- 1377 Sep, [facility] [place] [facility] [address] [id number] [place] [address]- 7382 Sep, [facility] [place] [facility] [address] [id number] [place] [address]- 4565 Sep, [facility] [place] [facility] [address] [id number] [place] [address]- 5551 Sep, [facility] [place] [facility] [address] [id number] [place] [address]- 0414 Sep, [facility] [place] [facility] [address] [id number] [place] [address]- 9479 Sep, [facility] [place] [address] [id number] [place] [address]- 2228 Sep, [facility] [place] [facility] [address] [id number] [place] [address]- 8415 Sep, [facility] [place] [facility] [address] [id number] [place] [address]- 3116 Sep, [facility] [place] [facility] [address] [id number] [place] [address]- 5663 Sep, [facility] [place] [facility] [address] [id number] [place] [address]- 9181 Sep, [facility] [place] [facility] [address] [id number] [place] [address]- 1611 Sep, [facility] [address] [id number] [place] [address]- 6168 Sep, [facility] [place] [address] [id number] [place] [address]- 8174 Sep, [facility] [place] [facility] [address] [id number] [place] [address]- 6473 Sep, [facility] [place] [facility] [address] [id number] [place] [address]- 6191 Sep, [facility] [place] [facility] [address] [id number] [place] [address]- 7416 Sep, [facility] [place] [facility] [address] [id number] [place] [address]- 7706 Sep, [facility] [address] [id number] [place] [address]- 6864 Sep, [facility] [address] [id number] [place] [address]- 2025 Sep, [facility] [facility] [address] [id number] [place] [address]- 3112 Sep, [facility] [address] [id number] [place] [address]- 1118 Aug, [facility] [facility] [address] [id number] [place] [address]- 5655 Aug, [facility] [place] [facility] [address] [id number] [place] [address]- 1562 Aug, [facility] [place] [facility] [address] [id number] [place] [address]- 7329 Aug, [facility] [address] [id number] [place] [address]- 9571 Aug, [facility] [place] [facility] [address] [id number] [place] [address]- 8361 Aug, [facility] [place] [facility] [address] [id number] [place] [address]- 0176 Aug, [facility] [place] [facility] [address] [id number] [place] [address]- 6219 Aug, [facility] [place] [facility] [address] [id number] [place] [address]- 8768 Aug, 2013 [facility] [place] [facility] [address] [id number] [place] [address]- 6325 Aug, [facility] [place] [facility] [address] [id number] [place] [address]- 5719 Aug, [facility] [place] [facility] [address] [id number] [place] [address]- 0486 Aug, [facility] [place] [facility] [address] [id number] [place] [address]- 3736 Aug, [facility] [place] [facility] [address] [id number] [place] [address]- 9018 Jul, [facility] [place] [facility] [address] [id number] [place] [address]- 1011 Jul, [facility] [place] [facility] [address] [id number] [place] [address]- 7953 Jul, [facility] [place] [facility] [address] [id number] [place] [address]- 0897 Jul, [facility] [place] [facility] [address] [id number] [place] [address]- 6863 Jul, [facility] [place] [facility] [address] [id number] [place] [address]- 2745 Jul, [facility] [place] [facility] [address] [id number] [place] [address]- 7745 Jul, [facility] [place] [facility] [address] [id number] [place] [address]- 7907 June, [facility] [address] [id number] [place] [address]- 3413 June, [facility] [place] [facility] [address] [id number] [place] [address]- 0540 June, [facility] [place] [facility] [address] [id number] [place] [address]- 3975 June, [facility] [place] [facility] [address] [id number] [place] [address]- 3520 May, [facility] [place] [facility] [address] [id number] [place] [address]- 6170 May, [facility] [place] [facility] [address] [id number] [place] [address]- 2619 May, [facility] [place] [facility] [address] [id number] [place] [address]- 6547 May, [facility] [place] [facility] [address] [id number] [place] [address]- 5847 May, [facility] [place] [facility] [address] [id number] [place] [address]- 4662 May, [facility] [place] [facility] [address] [id number] [place] [address]- 9911 May, [facility] [place] [facility] [address] [id number] [place] [address]- 1659 May, [facility] [place] [facility] [address] [id number] [place] [address]- 8949 May, [facility] [place] [facility] [address] [id number] [place] [address]- 5196 May, [facility] [place] [facility] [address] [id number] [place] [address]- 9741 Apr, [facility] [place] [facility] [address] [id number] [place] 9764 Apr, [facility] [place] [facility] [address] [id number] [place] [address]- 7485 Apr, [facility] [place] [facility] [address] [id number] [place] [address]- 3225 Apr, [facility] [place] [facility] [address] [id number] [place] 7196 Apr, [facility] [place] [facility] [address] [id number] [place] [address]- 0329 Apr, [facility] [place] [facility] [address] [id number] [place] [address]- 6195 Apr, [facility] [place] [facility] [address] [id number] [place] [address]- 9106 Apr, [facility] [place] [facility] [address] [facility] [id number] [place] [address]- 1080 Apr, [facility] [place] [facility] [address] [id number] [place] [address]- 0382 Apr, [facility] [place] [facility] [address] [id number] [place] [address]- 1142 Mar, [facility] [place] [facility] [address] [facility] [id number] [place] [address]- 2576 Mar, [facility] [place] [facility] [address] [facility] [id number], [place] [address]- 6343 Mar, [facility] [place] [facility] [address] [id number], [place] [address]- 9140 Mar, [facility] [place] [facility] [address] [id number] [place] [address]- 9109 Mar, [facility] [place] [facility] [address] [id number] [place] [address]- 8107 Mar, [facility] [place] [facility] [address] [facility] [id number] [place] [address]- 4554 Jan, [facility] [place] [facility] [address] [id number], [place] [address]- 1205 Jan, [facility] [address] [id number] [place] [address]- 4560 Jan, [facility] [address] [facility] [id number], [place] [address]- 4391 Jan, [facility] [address] [facility] [id number] [place] [address]- 5599 Jan, [facility] [address] [id number], [place] [address]- 3961 Jan, [facility] [address] [facility] [id number] [place] [address]- 7172 Jan, [facility] [address] [facility] [id number] [place] [address]- 5512 Jan, [facility] [address] [id number], [place] [address]- 0432 Jan, [facility] [address] [facility] [id number], [place] [address]- 2958 Dec, [facility] [address] [facility] [id number], [place] [address]- 1003 Dec, [facility] [address] [id number], [place] [address]- 9197 Dec, [facility] [address] [facility] [id number], [place] [address]- 5125 Dec, [facility] [place] [facility] [address] [facility] [id number], [place] [address]- 4351 Dec, [facility] [place] [facility] [address] [id number], [place] [address]- 0340 Dec, [facility] [place] [facility] [address] [facility] [id number], [place] [address]- 7383 15 Dec, 2012 [facility] [place] [facility] [address] [id number], [place] [address]- 1441 15 Dec, 2012 [facility] [place] [facility] [address] [id number] [place] [address]- 2546 Dec, [facility] [place] [facility] [address] [id number] [place] [address]- 8413 Dec, [facility] [place] [facility] [address] [id number] [place] [address]- 2546 Dec, [facility] [place] [facility] [address] [id number] [place] [address]- 3518 Nov, [facility] [place] [facility] [address] [id number] [place] [address]- 1235 Nov, [facility] [place] [facility] [address] [id number] [place] [address]- 7745 Nov, [facility] [place] [facility] [address] [id number] [place] [address]- 1726 Nov, [facility] [place] [facility] [address] [id number] [place] [address]- 3290 Nov, [facility] [place] [facility] [address] [id number] [place] [address]- 1835 Oct, [facility] [place] [facility] [address] [id number] [place] [address]- 8460 Oct, [facility] [place] [facility] [address] [id number] [place] [address]- 5523 Sep, [facility] [place] [facility] [address] [id number] [place] [address]- 3526 Aug, [facility] [place] [facility] [address] [id number] [place] [address] Aug, [facility] [place] [facility] [address] [id number] [place] [address] Aug, [facility] [place] [facility] [address] [id number] [place] [address] Aug, [facility] [place] [facility] [address] [id number] [place] [address] Jul, [facility] [address] [id number] [place] [address] Jul, [facility] [address] [id number] [place] [address] June, [facility] [address] [id number] [place] [address] June, [facility] [place] [facility] [address] [id number] [place] [address] June, [facility] [address] [id number] [place] [address] May, [facility] [address] [id number] [place] [address] May, [facility] [address] [facility] [id number] [place] [address] May, [facility] [place] [facility] [address] [id number] [place] [address] Apr, [facility] [place] [facility] [address] [id number] [place] [address] 18 Apr, 2012 [facility] [place] [facility] [address] [facility] [id number] [place] [address]- [address] 15 Apr, 2012 [facility] [place] [facility] [address] [id number] [address] 14 Apr, 2012 [facility] [place] [facility] [address] [id number], [place] [address] Apr, [facility] [place] [facility] [address] [id number] [place] [address] Apr, [facility] [place] [facility] [address] [id number] [address] Apr, [facility] [place] [facility] [address] [facility] [id number] [address] Apr, [facility] [place] [facility] [address] [id number] [place] [address] 21 Apr, 2012 [facility] [address] [id number] [place] [address] 20 Apr, 2012 [facility] [address] [id number] [place] [address] 2546 19 Apr, 2012 [facility] [address] [id number] [place] [address] 25[address] 07 Apr, 2012 [facility] [address] [id number] [place] [address] 07 Apr, 2012 [facility] [address] [id number] [place] [address]- [address] Mar, [facility] [address] [id number] [place] [address]- [address] 23 Mar, 2012 [facility] [address] [id number] [place] [address]- [address] 16 Mar, 2012 [facility] [address] [id number] [place] [address] Mar, [facility] [address] [id number] [place] [address] Mar, [facility] [address] [id number] [place] [address]- [address] 28 Jan, 2012 [facility] [address] [id number] [place] [address] 2548 28 Jan, 2012 [facility] [address] [id number] [place] [address] 2543 22 Jan, 2012 [facility] [place] [facility] [address] [id number] [place] [address] 2546 22 Jan, 2012 [facility] [address] [id number] [place] [address] 2546 14 Jan, 2012 [facility] [address] [id number] [place] [address] 13 Jan, 2012 [facility] [place] [facility] [address] [id number] [place] [address]- [address] 13 Jan, 2012 [facility] [place] [facility] [address] [id number] [place] [address]- 2047 11 Jan, 2012 [facility] [place] [facility] [address] [facility] [id number] [place] [address] Jan, [facility] [place] [facility] [address] [id number] [place] [address]- [address] 06 Jan, 2012 [facility] [place] [facility] [address] [id number] [place] [address]- [address] Jan, [facility] [place] [facility] [address] [id number] [place] [address]- [address] Jan, [facility] [place] [facility] [address] [facility] [id number] [place] [address]- [address] Jan, [facility] [place] [facility] [address] [id number] [place] [address]- [address] Jan, [facility] [place] [facility] [address] [id number] [place] [address]- 4775 26 Jan, 2012 [facility] [place] [facility] [address] [id number] [place] [address]- [address] 26 Jan, 2012 [facility] [place] [facility] [address] [id number], [place] [address] 19 Jan, 2012 [facility] [place] [facility] [address] [id number], [place] [address] 19 Jan, 2012 [facility] [place] [facility] [address] [id number] [place] [address]- [address] 15 Jan, 2012 [facility] [place] [facility] [address] [id number][place] [address] 15 Jan, 2012 [facility] [place] [facility] [address] [facility] [id number], [place] [address]- [address] 14 Jan, 2012 [facility] [place] [facility] [address] [id number] [place] [address]- [address] 14 Jan, 2012 [facility] [place] [facility] [address] [id number] [place] [address]- 3426 14 Jan, 2012 [facility] [place] [facility] [address] [id number] [place] [address] 14 Jan, 2012 [facility] [place] [facility] [address] [id number] [place] [address]- 44[address] 07 Jan, 2012 [facility] [place] [facility] [address] [id number] [place] [address]- 0[address] 07 Jan, 2012 [facility] [place] [facility] [address] [id number] [place] [address]- 36[address] 16 Dec, 2011 [facility] [place] [facility] [address] [id number] [place] [address]- 7341 16 Dec, 2011 [facility] [place] [facility] [address] [id number] [place] [address]- 0480 13 Nov, 2011 [facility] [place] [facility] [address] [id number] [place] [address]- 0895 13 Nov, 2011 [facility] [place] [facility] [address] [id number] [place] [address]- 6991 13 Nov, 2011 [facility] [place] [facility] [address] [id number] [place] [address]- [address] 12 Nov, 2011 [facility] [place] [facility] [address] [id number] [place] [address]- 2975 30 Oct, 2011 [facility] [place] [facility] [address] [id number] [place] [address]- 135[address] Sep, [facility] [place] [facility] [address] [id number] [place] [address]- [address] Aug, [facility] [place] [facility] [address] [id number] [place] [address]- 6516 13 Aug, 2011 [facility] [place] [facility] [address] [id number] [place] [address]- 6[address] Aug, [facility] [place] [facility] [address] [id number] [place] [address]- 74[address] Aug, [facility] [address] [id number] [place] [address]- 94[address] June, [facility] [address] [id number] [place] [address]- 8596 June, [facility] [address] [id number] [place] [address]- [address]86 May, [facility] [address] [id number] [place] [address]- 2199 Apr, [facility] [address] [id number] [place] [address]- [address]776 Apr, [facility] [address] [address] [id number] [place] [address] Apr, [facility] [address] [id number] [place] [address] Apr, [facility] [address] [id number] [place] [address] Apr, [facility] [address] [id number] [place] [address] Apr, [facility] [address] [id number] [place] [address] Mar, [facility] [address] [id number] [place] [address] Mar, [facility] [place] [facility] [address] [id number] [place] [address] Mar, [facility] [address] [id number] [place] [address] Jan, [facility] [place] [facility] [address] [id number] [place] [address] Jan, [facility] [address] [id number] [address] Jan, [facility] [place] [facility] [address] [id number] [place] [address] Jan, [facility] [place] [facility] [address] [id number] [place] [address] Jan, [facility] [place] [facility] [address] [id number] [place] [address] Jan, [facility] [place] [facility] [address] [id number] [place] [address] Jan, [facility] [place] [facility] [address] [id number] [place] [address] Dec, [facility] [place] [facility] [address] [id number] [place] [address] Dec, [facility] [place] [facility] [address] [id number] [place] [address] Nov, [facility] [place] [facility] [address] [id number] [place] [address] Nov, [facility] [place] [facility] [address] [id number] [place] [address] Nov, [facility] [place] [facility] [address] [id number] [place] [address] Nov, [facility] [place] [facility] [address] [id number] [address] Oct, [facility] [place] [facility] [address] [id number] [place] [address] Sep, [facility] [place] [facility] [address] [id number] [place] [address] Mar, [facility] [place] [facility] [address] [id number] [place] [address] Jan, [facility] [place] [facility] [address] [id number] [place] [address] Dec, [facility] [place] [facility] [address] [id number] [place] [address] 06 Dec, 2009 [facility] [address] [id number] [place] [address] 04 Dec, 2009 [facility] [place] [facility] [address] [id number] [place] [address] Dec, [facility] [place] [facility] [address] [id number] [place] [address] 26 Nov, 2009 [facility] [place] [facility] [address] [id number] [place] [address] 15 Nov, 2009 [facility] [place] [facility] [address] [id number] [place] [address] 14 Nov, 2009 [facility] [place] [facility] [address] [id number] [place] [address] 14 Nov, 2009 [facility] [place] [facility] [address] [id number] [place] [address] 13 Oct, 2009 [facility] [address] [id number] [place] [address] Jul, [facility] [place] [facility] [address] [id number] [place] [address] June, [facility] [address] [facility] [id number] [place] [address] June, [facility] [place] [facility] [address] [id number] [place] [address] Apr, [facility] [place] [facility] [address] [id number] [place] [address] Mar, [facility] [place] [facility] [address] [id number] [place] [address] Jan, [facility] [place] [facility] [address] [id number] [place] [address] Jan, [facility] [place] [facility] [address] [id number] [place] [address] Dec, [facility] [address] [facility] [id number], [place] [address] Dec, [facility] [address] [id number] [address] Dec, [facility] [address] [id number] [address] Dec, [facility] [id number] [address] Nov, [facility] [address] [facility] [id number], [place] [address] Jul, [facility] [address] [id number] [address] June, IMMUNIZATIONS No Known Immunizations SOCIAL HISTORY Never Assessed REASON FOR VISIT left foot pain. reports he has osteoporosisi et thinks he has a stress fracture. been hurting for 10 days. also reports some right foot pain in his arch for 2 months. also reports he has gout. denies any injury to either foot. melissa PLAN OF CARE Activity Details Follow Up prn Reason: VITAL SIGNS Height 69 in 2017-10-30 Weight 330.6 lbs 2017-10-30 Temperature 98.3 degrees Fahrenheit 2017-10-30 Heart Rate 80 bpm 2017-10-30 Respiratory Rate 24 2017-10-30 BMI 48.82 kg/m2 2017-10-30 Blood pressure systolic 136 mmHg 2017-10-30 Blood pressure diastolic 76 mmHg 2017-10-30 MEDICATIONS Medication Instructions Dosage Frequency Start Date End Date Duration Status Allopurinol 100 MG TAKE 1 TABLET BY MOUTH DAILY 30 Active Duloxetine HCl 60 MG Orally Once a day 1 capsule 24h 90 Active Multivitamin BID May, Active Endocet 10-325 MG Orally every 4-6 hours 1 tablet as needed Sep, 28 days Active Fosamax 70 MG Orally once weekly 1 tablet Dec, 90 days Active Omeprazole 20 MG TAKE 1 CAPSULE BY MOUTH TWICE DAILY 90 Active Viagra 25 MG Orally 0.5-4 hours before intercourse, up to once per day 1 tablet Sep, Active Diclofenac Sodium 75 MG TAKE 1 TABLET WITH FOOD OR MILK TWICE DAILY 90 Active Docusate Sodium 100 MG Orally Once a day 1 capsule as needed 24h Active Clobetasol Propionate 0.05 % Externally Twice a day 1 application to affected area 12h Sep, Active Clonazepam 1 MG Orally Once a day as needed for anxiety 1 tablet June, 28 days Active Tizanidine HCl 4 MG TAKE 1 TABLET BY MOUTH THREE TIMES DAILY TO FOUR TIMES DAILY NEEDED 23 Active Garlic 1,000 mg 3 Capsule 2 times per day Dec, Active ProAir HFA 108 (90 Base) MCG/ACT Inhalation every 6 hrs 2 puffs as needed 6h Apr, Active Fluticasone Propionate 50 MCG/ACT 1 SPRAY INTO EACH NOSTRIL ONCE A DAY 60 Active Metoprolol Tartrate 25 MG TAKE 1 TABLET BY MOUTH TWICE A DAY 30 Active Duloxetine HCl 60 MG Orally Once a day 1 capsule 24h 14 Dec, 2015 Active DiphenhydrAMINE HCl 50 MG Orally Once a day 1 capsule at bedtime as needed 24h Active Nystatin 260885 UNIT/GM Externally Twice a day 1 application to affected area 12h June, Active Flomax 0.4 MG 1 capsule 30 minutes after the same meal each day twice a day Orally 90 days 90 Active Diclofenac Sodium 75 MG Orally 2 times a day 1 tablet with food or milk 12h 90 Active RESULTS Name Result Date Reference Range Xray : Foot, Left 3 views (IN HOUSE) 2017-10-30 PROCEDURES Procedure Date Ordered Result Body Site X-RAY EXAM OF FOOT Oct 30, 2017 [facility] VISIT ESTABLISHED PATIENT Oct 30, 2017 INSTRUCTIONS MEDICATIONS ADMINISTERED No Known Medications MEDICAL (GENERAL) HISTORY Type Description Date Medical History hypertension Medical History sleep apnea-did not tolerate CPAP Medical History oxygen dependent at [facility] Medical History colonic polyps Medical History [...]
--- OUTSIDE RECORDS SUMMARY | 2018-02-26 18:50 | XMS REPORT ---
Author Author GRAHAM CHRIS [facility] Address [address] [place] [address] Care Team Providers Care Machine Grainer Name Role Phone GRAHAMLIBBY HANNAY Unavailable PROBLEMS Type Condition ICD9-CM Code GKM67-UH Code Onset Dates Condition Status SNOMED Code Problem Pulmonary asbestosis J61 Active 37687295 Problem Left ventricular diastolic dysfunction I51.9 Active 120217902 Problem Chronic gout, unspecified cause, unspecified site [id number].[id number] Active 08006368 Problem Renal cyst, left N28.1 Active 80414711 Problem History of weight loss surgery Z98.84 Active 172796546 Problem Nocturnal hypoxia G47.34 Active 226677386 Problem Obstructive sleep apnea syndrome G47.33 Active 48641669 Problem History of diverticulitis Z87.19 Active 902078744891600 Problem Allergic rhinitis, unspecified allergic rhinitis type J30.9 Active 30591903 Problem Erectile dysfunction due to diseases classified elsewhere N52.1 Active 643724730 Problem Acute right-sided low back pain with right-sided sciatica M54.41 Active 856715604 Problem Psoriasis L40.9 Active 0468594 Problem Essential hypertension I10 Active 39559104 Problem Nephrolithiasis N20.0 Active 35911822 Problem Chronic prescription opiate use Z79.899 Active 190067786 Problem 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 Active 25414372 Problem Benign prostatic hyperplasia, presence of lower urinary tract symptoms unspecified, unspecified morphology N40.0 Active 203451412 Problem Moderate episode of recurrent major depressive disorder F33.1 Active 599583747 Problem Age-related osteoporosis without current pathological fracture M81.0 Active 94766024 Problem Low back pain M54.5 Active 375800170 Problem Anxiety F41.9 Active 28800030 Problem Urge incontinence N39.41 Active 410881905 Problem Hyperlipidemia, unspecified E78.5 Active 86623260 Problem Esophageal stricture K22.2 Active 85063955 Problem Cervicalgia M54.2 Active 9773319643321 Problem Primary insomnia F51.01 Active 490643620 ALLERGIES No Information ENCOUNTERS Encounter Location Date Diagnosis [facility] [address] [address] Dec, [facility] [address] [address] Oct, [facility] [address] [address] Oct, BMI 45.0-49.9, adult Z68.42 ; Essential hypertension I10 ; Hyperlipidemia, unspecified E78.5 ; Anxiety F41.9 ; Obstructive sleep apnea syndrome G47.33 ; Moderate episode of recurrent major depressive disorder F33.1 ; Left ventricular diastolic dysfunction I51.9 ; Acute pain of right shoulder M25.511 ; Pain of left foot M79.672 and Pain in right foot M79.671 [facility] [address] [address] Oct, Anxiety F41.9 [facility] [address] [address] Sep, Left foot pain M79.672 [facility] [address] [address]- [address] Sep, [facility] [id number] [place] [address] 41487- 5860 Sep, Anxiety F41.9 [facility] [address] [address]- [address] Sep, [facility] [address] 23907- 2612 Aug, [facility] [address] 78678- 3189 Aug, [facility] [id number] [place] [address] 60440- 7870 Aug, Anxiety F41.9 [facility] [id number] [place] [address] 48784- 0524 Aug, [facility] [id number] [place] [address] 40009- 8498 Jul, [facility] [id number] [place] [address] 04073- 4964 Jul, Anxiety F41.9 [facility] [address] 25120- 2674 June, Anxiety F41.9 [facility] [address] 43784- 3868 June, [facility] [id number] [place] [address] 27515- 5863 June, Low back pain M54.5 ; Chronic prescription opiate use Z79.899 ; Candidal intertrigo B37.2 ; Urge incontinence N39.41 ; Essential hypertension I10 ; Moderate episode of recurrent major depressive disorder F33.1 ; Age-related osteoporosis without current pathological fracture M81.0 and BMI 45.0-49.9, adult Z68.42 [facility] [id number] [place] [address] 84795- 9765 June, [facility] [id number] [place] [address] 80832- 9477 May, Anxiety F41.9 [facility] [id number] [place] [address] 28405- 8220 May, [facility] [id number] [place] [address] 66604- 3099 May, [facility] [id number] [place] [address] 33949- 5704 Apr, Anxiety F41.9 [facility] [id number] [place] [address] 91592- 2054 Apr, [facility] [id number] [place] [address] 26785- 0784 Apr, Low back pain M54.5 [facility] [id number] [place] [address] 18106- 2586 Apr, [facility] [id number] [place] [address] 98980- 1838 Apr, [facility] [id number] [place] [address] 66962- 8833 Apr, Anxiety F41.9 [facility] [id number] [place] [address] 93437- 3593 Apr, Right groin pain R10.31 [facility] [id number] [place] [address] 35870- 3396 Mar, [facility] [id number] [place] [address] 15672- 5331 Mar, [facility] [id number] [place] [address] 38680- 7730 Mar, Anxiety F41.9 [facility] [id number] [place] [address] 18800- 8815 Mar, Low back pain M54.5 [facility] [id number] [place] [address] 99795- 9205 Mar, Right groin pain R10.31 ; Low back pain M54.5 and BMI 45.0- 49.9, adult Z68.42 [facility] [address] [address] 8706 Mar, [facility] [id number] [place] [address] 44342- 0857 Mar, [facility] [id number] [place] [address] 56335- 4503 Mar, [facility] [address] [address] Mar, [facility] [id number] [place] [address] 70829 -3478 Mar, Cough R05 ; Pneumonia of right lower lobe due to infectious organism J18.1 and Abnormal chest x-ray R93.8 [facility] [id number] [place] [address] 10188- 0199 Mar, [facility] [id number] [place] [address] 89588- 5396 Mar, [facility] [id number] [place] [address] 49864- 5576 Jan, Anxiety F41.9 [facility] [address] 97191- 8572 Jan, [facility] [id number] [place] [address] 36017- 0164 Jan, Moderate episode of recurrent major depressive disorder F33.1 [facility] [id number] [place] [address] 46200- 0436 Jan, Subacromial bursitis of right shoulder joint M75.51 ; Shortness of breath on exertion R06.02 and BMI 45.0-49.9, adult Z68.42 [facility] [id number] [place] [address] 91911- 0919 Dec, Anxiety F41.9 [facility] [id number] [place] [address] 96935- 3708 Dec, [facility] [id number] [place] [address] 67670- 9174 Dec, Low back pain M54.5 [facility] [id number] [place] [address] 31424- 5051 Oct, Low back pain M54.5 [facility] [id number] [place] [address] 85740- 2500 Sep, [facility] [id number] [place] [address] 77623- 5366 Sep, Erectile dysfunction due to diseases classified elsewhere N52.1 [facility] [id number] [place] [address] 28464- 9410 Sep, Erectile dysfunction due to diseases classified elsewhere N52.1 [facility] [id number] [place] [address] 44838- 6014 Sep, [facility] [address] 94529- 0919 Sep, Erectile dysfunction due to diseases classified elsewhere N52.1 [facility] [id number] [place] [address] 64208- 0451 Sep, Low back pain M54.5 and Anxiety F41.9 [facility] [id number] [place] [address] 58229 -8073 Aug, Acute allergic rhinitis J30.9 [facility] [address] 45052- 0563 Aug, [facility] [id number] [place] [address] 66979- 4266 Aug, Anxiety F41.9 [facility] [id number] [place] [address] 56054- 3270 Jul, Low back pain M54.5 ; Chronic prescription opiate use Z79.899 and Essential hypertension I10 [facility] [id number] [place] [address] 38570- 0686 Jul, Anxiety F41.9 and Low back pain M54.5 [facility] [id number] [place] [address] 00477- 3727 June, [facility] [address] 50713- 4928 June, Anxiety F41.9 [facility] [id number] [place] [address] 37573- 3849 May, Low back pain M54.5 [facility] [address], [place] [address]- 7572 May, [facility] [id number] [place] [address] 71315- 1406 May, Anxiety F41.9 [facility] [id number] [place] [address] 27029- 6022 Apr, [facility] [id number] [place] [address] 02291- 3153 Apr, Low back pain M54.5 [facility] [id number] [place] [address] 55574- 2019 Apr, Moderate episode of recurrent major depressive disorder F33.1 [facility] [id number] [place] [address] 07959- 1315 Apr, Anxiety F41.9 [facility] [id number] [place] [address] 37585- 5976 Apr, Low back pain M54.5 [facility] [id number] [place] [address] 45840- 8556 Apr, Elevated alkaline phosphatase level R74.8 [facility] [id number] [place] [address] 10451- 1602 10 Apr, 2016 Alkaline phosphatase elevation R74.8 [facility] [id number] [place] [address] 53251- 3516 06 Apr, 2016 Anxiety F41.9 [facility] [id number] [place] [address] 91605- 6615 Apr, Low back pain M54.5 [facility] [id number] [place] [address] 93547- 9286 Apr, History of weight loss surgery Z98.84 ; Encounter for hepatitis C screening test for low risk patient Z11.59 ; History of herpes genitalis Z86.19 ; Essential hypertension I10 ; Hyperlipidemia, unspecified E78.5 ; Exposure to STD Z20.2 and Benign prostatic hyperplasia, presence of lower urinary tract symptoms unspecified, unspecified morphology N40.0 [facility] [id number] [place] [address] 75873- 5737 Apr, [facility] [id number] [place] [address] 62425- 1562 Mar, [facility] [id number] [place] [address] 75863- 5063 Mar, [facility] [facility] [id number] [place] [address] 87380- 4106 Mar, [facility] [id number] [place] [address] 88260- 9906 Mar, Acute right-sided low back pain with right-sided sciatica M54.41 [facility] [id number] [place] [address] 68220- 7847 Mar, Low back pain M54.5 [facility] [id number] [place] [address] 13214 -3420 Mar, Muscle strain of chest wall, initial encounter S29.011A ; Muscle strain of right thigh, initial encounter S76.911A and Acute non- recurrent maxillary sinusitis J01.00 [facility] [address], [place] [address]- 6524 Mar, Benign prostatic hyperplasia, presence of lower urinary tract symptoms unspecified, unspecified morphology N40.0 [facility] [id number] [place] [address] 68588- 3595 Jan, Low back pain M54.5 [facility] [id number] [place] [address] 13925- 9924 Jan, Low back pain M54.5 ; Essential hypertension I10 ; Hyperlipidemia, unspecified E78.5 ; Anxiety F41.9 ; Moderate episode of recurrent major depressive disorder F33.1 ; Primary insomnia F51.01 ; Exposure to STD Z20.2 ; Encounter for hepatitis C screening test for low risk patient Z11.59 and History of herpes genitalis Z86.19 [facility] [id number] [place] [address] 36369- 0123 17 Jan, 2016 [facility] [id number] [place] [address] 54108- 8163 20 Dec, 2015 [facility] [address] 86631- 4951 14 Dec, 2015 Anxiety F41.9 ; Cervicalgia M54.2 ; Moderate episode of recurrent major depressive disorder F33.1 and Encounter for immunization Z23 [facility] [id number] [place] [address] 85907- 7366 Oct, [facility] [id number] [place] [address] 59225- 3120 Oct, [facility] [address] 25687- 0405 Oct, [facility] [id number] [place] [address] 02376- 2208 Oct, [facility] [id number] [place] [address] 64734- 0064 Sep, [facility] [id number] [place] [address] 58826- 4487 Aug, Low back pain M54.5 ; Anxiety F41.9 ; Primary insomnia F51.01 and Chronic prescription opiate use Z79.899 [facility] [id number] [place] [address] 42897- 6590 Jul, [facility] [id number] [place] [address] 23039- 1295 Jul, [facility] [id number] [place] [address] 91187- 1483 Jul, [facility] [id number] [place] [address] 96509- 3739 Jul, [facility] [address], [place] [address]- 1434 Jul, [facility] [id number] [place] [address] 601664- 1424 June, [facility] [address] 3891 June, [facility] [id number] [place] [address] 74656- 4045 June, [facility] [address], [place] [address]- 7851 June, [facility] [id number] [place] [address] 80457- 2782 May, Preoperative cardiovascular examination Z01.810 [facility] [address], [place] [address]- 1367 May, [facility] [address], [place] [address]- 4048 Apr, [facility] [address], [place] [address]- 6324 Apr, Osteoarthritis of right knee M17.9 [facility] [address], [place] [address]- 5432 30 May, 2015 [facility] [address], [place] [address]- 5213 16 May, 2015 [facility] [address], [place] [address]- 7673 Apr, [facility] [address], [place] [address]- 5217 09 May, 2015 [facility] [address] [address]- 5408 08 May, 2015 History of excessive cerumen Z78.9 ; Obstructive sleep apnea syndrome G47.33 ; History of diverticulitis Z87.19 and Nephrolithiasis N20.0 [facility] [address] [place] [address] 44233- 9317 29 Apr, 2015 [facility] [id number] [place] [address] 35697 -1142 23 Apr, 2015 Abdominal pain R10.9 [facility] [id number] [place] [address] 22473- 6985 Apr, [facility] [id number] [place] [address] 74415- 5036 04 Apr, 2015 Osteoarthritis of right knee M17.9 [facility] [address] 50510- 4019 Mar, [facility] [id number] [place] [address] 02096- 5845 15 Mar, 2015 [facility] [id number] [place] [address] 55555- 7703 Mar, [facility] [id number] [place] [address] 43478- 6435 Mar, [facility] [id number] [place] [address] 16670 -2942 Mar, Pyelonephritis N12 ; Left-sided thoracic back pain M54.6 ; Hematuria, unspecified R31.9 and Kidney stone N20.0 [facility] [id number] [place] [address] 69616- 5691 Mar, History of weight loss surgery Z98.84 [facility] [id number] [place] [address] 87079- 5099 Mar, History of weight loss surgery Z98.84 and Hyperlipidemia, unspecified E78.5 [facility] [id number] [place] [address] 09447- 6455 Mar, Low back pain M54.5 ; Chronic prescription opiate use Z79.899 ; Hyperlipidemia, unspecified E78.5 ; Spasm of back muscles M62.830 and History of weight loss surgery Z98.84 [facility] [address], [place] [address]- 1470 Jan, [facility] [id number] [place] [address] 39355- 6393 Jan, [facility] [id number] [place] [address] 02304- 1022 Jan, [facility] [id number] [place] [address] 81803- 2173 Dec, [facility] [id number] [place] [address] 42357- 0253 Dec, [facility] [id number] [place] [address] 98510- 5824 Dec, [facility] [id number] [place] [address] 64791- 8522 Nov, [facility] [id number] [place] [address] 24153- 5764 Nov, Obstructive sleep apnea syndrome G47.33 and Pharyngoesophageal dysphagia R13.14 [facility] [id number] [place] [address] 01208- 0073 Nov, [facility] [id number] [place] [address] 99435- 7476 Nov, [facility] [id number] [place] [address] 83085- 0346 Nov, [facility] [id number] [place] [address] [id number] 30 Oct, 2014 Dental examination V72.2 [facility] [id number] [place] [address] 52030- 1347 Oct, [facility] [id number] [place] [address] 49697- 9779 Oct, [facility] [id number] [place] [address] 62200- 2637 Oct, [facility] [id number] [place] [address] 86760- 6904 Oct, [facility] [id number] [place] [address] 07324- 3351 Oct, BPH (benign prostatic hyperplasia) 600.00 and Urinary frequency 788.41 [facility] [address] 81862- 9303 Oct, [facility] [id number] [place] [address] 67266- 8776 Oct, [facility] [address] 90170- 8202 Oct, [facility] [id number] [place] [address] 64820- 2647 Sep, Cerumen impaction 380.4 ; Cerumen debris on tympanic membrane 380.4 ; Psoriasis 696.1 and MICKY (secretory otitis media) 381.4 [facility] [id number] [place] [address] [id number] Sep, Dental examination V72.2 [facility] [id number] [place] [address] 33839- 2524 Sep, Fatigue 780.79 ; Irritable bowel syndrome 564.1 ; Overweight 278.02 ; Poor sleep V69.4 ; Shaking spells 781.0 and Broken tooth 873.63 [facility] [id number] [place] [address] 40827- 5856 Sep, [facility] [id number] [place] [address] 39644- 9500 Sep, [facility] [id number] [place] [address] 41056- 0254 Aug, [facility] [id number] [place] [address] 70993- 5575 Jul, [facility] [address] [id number] [place] [address] Jul, [facility] [address] [facility] [id number] [place] [address] Jul, [facility] [address] [facility] [id number] [place] [address] Jul, [facility] [id number] [place] [address] June, Arthritis of knee, right 716.96 [facility] [address] [id number] [place] [address] June, [facility] [id number] [place] [address] June, Elevated blood pressure reading without diagnosis of hypertension 796.2 [facility] [id number] [place] [address] June, [facility] [address] [place] [id number] [place] [address] June, [facility] [id number] [place] [address] June, [facility] [id number] [place] [address] 8599 June, [facility] [id number] [place] [address] May, [facility] [address] [facility] [id number] [place] [address]- 7051 May, [facility] [id number] [place] [address]- 5061 Apr, [facility] [address] [facility] [id number] [place] [address] Apr, [facility] [id number] [address] Apr, [facility] [place] [facility] [address] [id number] [place] [address] 27 Apr, 2014 [facility] [place] [facility] [address] [id number] [place] [address]- 2886 Apr, 2014 [facility] [place] [facility] [address] [id number] [place] [address]- [address]47 20 Apr, 2014 [facility] [place] [facility] [address] [id number] [place] [address]- 5318 Apr, 2014 [facility] [place] [facility] [address] [id number] [place] [address]- 9688 13 Apr, 2014 [facility] [place] [facility] [address] [id number] [place] [address]- 7770 Apr, 2014 [facility] [place] [facility] [address] [address] [id number] [place] [address] Apr, 2014 [facility] [place] [facility] [address] [id number] [place] [address] Apr, 2014 [facility] [place] [facility] [address] [id number] [place] [address] 3791 Apr, 2014 [facility] [place] [facility] [address] [id number] [place] [address] 0922 24 Apr, 2014 [facility] [place] [facility] [address] [id number] [place] [address] 5165 Apr, 2014 [facility] [place] [facility] [address] [id number] [place] [address]- 4528 Apr, 2014 [facility] [place] [facility] [address] [id number] [place] [address]- 5212 Apr, 2014 [facility] [place] [facility] [address] [id number] [place] [address] Apr, 2014 [facility] [place] [facility] [address] [id number] [place] [address] 0544 Apr, 2014 [facility] [place] [facility] [address] [facility] [id number] [place] [address] 1897 18 Apr, 2014 [facility] [place] [facility] [address] [facility] [id number] [place] [address] 4326 18 Apr, 2014 [facility] [place] [facility] [address] [facility] [id number] [place] [address]- 2546 13 Apr, 2014 [facility] [place] [facility] [address] [facility] [id number] [place] [address]- 0076 13 Apr, 2014 [facility] [place] [facility] [address] [facility] [id number] [place] [address]- 3325 13 Apr, 2014 [facility] [place] [facility] [address] [facility] [id number] [place] [address]- 1745 Apr, 2014 [facility] [place] [facility] [address] [facility] [id number] [place] [address]- 1765 12 Apr, 2014 [facility] [place] [facility] [address] [id number] [place] [address] 0899 Apr, 2014 [facility] [place] [facility] [address] [facility] [id number] [place] [address]- 6554 Apr, 2014 [facility] [place] [facility] [address] [id number] [place] [address] 2975 Apr, 2014 [facility] [place] [facility] [address] [id number] [address] Apr, 2014 [facility] [place] [facility] [address] [facility] [id number], [place] [address]- 9747 Apr, 2014 [facility] [place] [facility] [address] [facility] [id number] [place] [address]- 3771 Apr, 2014 [facility] [place] [facility] [address] [facility] [id number] [place] [address]- 8123 Apr, 2014 [facility] [place] [facility] [address] [facility] [id number], [place] [address] 52[address] Apr, 2014 [facility] [place] [facility] [address] [facility] [id number], [place] [address] 70[address] Mar, [facility] [address] [id number] [place] [address] 1861 Mar, [facility] [place] [facility] [address] [id number] [place] [address]- 8666 Mar, [facility] [place] [facility] [address] [id number] [place] [address]- 7066 Mar, [facility] [place] [facility] [address] [id number] [place] [address]- 5395 Mar, [facility] [place] [facility] [address] [id number] [place] [address] 1903 Mar, [facility] [place] [facility] [address] [id number] [place] [address]- 6473 Mar, [facility] [place] [facility] [address] [id number] [place] [address]- 9931 Mar, [facility] [place] [facility] [address] [id number] [place] [address]- 4665 Mar, [facility] [place] [facility] [address] [id number] [place] [address]- 6847 Mar, [facility] [place] [facility] [address] [id number] [place] [address]- 3596 Jan, [facility] [place] [facility] [address] [id number] [place] [address]- 6338 Jan, [facility] [place] [facility] [address] [id number] [place] [address]- 0451 Jan, [facility] [place] [facility] [address] [id number] [place] [address]- 0257 Jan, [facility] [place] [facility] [address] [id number] [place] [address]- 2014 Jan, [facility] [place] [facility] [address] [id number] [place] [address]- 2166 Jan, [facility] [place] [facility] [address] [id number] [place] [address]- 8729 05 Jan, 2014 [facility] [place] [facility] [address] [id number] [place] [address]- 2282 Jan, [facility] [place] [facility] [address] [id number] [place] [address]- 9463 Jan, [facility] [place] [facility] [address] [id number] [place] [address]- 6816 Jan, [facility] [place] [facility] [address] [id number] [place] [address]- 2544 Jan, [facility] [place] [facility] [address] [id number] [place] [address]- 6315 Jan, [facility] [place] [facility] [address] [id number] [place] [address]- 5477 Dec, [facility] [place] [facility] [address] [id number] [place] [address]- 4834 Dec, [facility] [place] [facility] [address] [id number] [place] [address]- 9128 Dec, [facility] [place] [facility] [address] [id number] [place] [address]- 6587 Dec, [facility] [place] [facility] [address] [id number] [place] [address]- 1105 Dec, [facility] [place] [facility] [address] [id number] [place] [address]- 0494 Dec, [facility] [place] [facility] [address] [id number] [place] [address]- 9115 Dec, [facility] [place] [facility] [address] [id number] [place] [address]- 5801 Dec, [facility] [place] [facility] [address] [id number] [place] [address]- 9126 Dec, [facility] [place] [facility] [address] [id number] [place] [address]- 5528 Dec, [facility] [place] [facility] [address] [id number] [place] [address]- 8062 Nov, [facility] [place] [facility] [address] [id number] [place] [address]- 3401 Nov, [facility] [place] [facility] [address] [id number] [place] [address]- 4081 Nov, [facility] [place] [facility] [address] [id number] [place] [address]- 6776 Nov, [facility] [place] [facility] [address] [id number] [place] [address]- 6591 Nov, [facility] [place] [facility] [address] [id number] [place] [address]- 4978 Nov, [facility] [place] [facility] [address] [id number] [place] [address]- 2339 Nov, [facility] [place] [facility] [address] [id number], [place] [address]- 8316 Nov, [facility] [place] [facility] [address] [id number] [place] [address]- 3281 Nov, [facility] [place] [facility] [address] [id number], [place] [address]- 8417 Nov, [facility] [place] [facility] [address] [id number], [place] [address]- 1132 Nov, [facility] [place] [facility] [address] [id number], [place] [address]- 4555 17 Nov, 2013 [facility] [place] [facility] [address] [id number] [place] [address]- 2584 14 Nov, 2013 [facility] [place] [facility] [address] [id number], [place] [address]- 2700 14 Nov, 2013 [facility] [place] [facility] [address] [id number] [place] [address]- 2323 Nov, [facility] [place] [facility] [address] [id number] [place] [address]- 8649 10 Nov, 2013 [facility] [place] [facility] [address] [id number] [place] [address]- 7054 08 Nov, 2013 [facility] [place] [facility] [address] [id number] [place] [address]- 4255 08 Nov, 2013 [facility] [place] [facility] [address] [id number] [place] [address]- 1513 Nov, [facility] [place] [facility] [address] [id number] [place] [address]- 9690 Nov, [facility] [place] [facility] [address] [id number] [place] [address]- 9125 Oct, [facility] [place] [facility] [address] [id number] [place] [address]- 4231 Oct, 2013 [facility] [place] [facility] [address] [id number] [place] [address]- 7042 Oct, 2013 [facility] [place] [facility] [address] [id number] [place] [address]- 9722 19 Oct, 2013 [facility] [place] [facility] [address] [id number] [place] [address]- 4757 12 Oct, 2013 [facility] [place] [facility] [address] [id number] [place] [address]- 0272 12 Oct, 2013 [facility] [place] [facility] [address] [id number] [place] [address]- 4779 10 Oct, 2013 [facility] [place] [facility] [address] [id number] [place] [address]- 2541 10 Oct, 2013 [facility] [place] [facility] [address] [id number] [place] [address]- 7795 08 Oct, 2013 [facility] [place] [facility] [address] [id number] [place] [address]- 6191 08 Oct, 2013 [facility] [place] [facility] [address] [id number] [place] [address]- 1271 Sep, [facility] [place] [facility] [address] [id number] [place] [address]- 6367 Sep, [facility] [place] [facility] [address] [id number] [place] [address]- 1441 Sep, [facility] [place] [facility] [address] [id number] [place] [address]- 7530 Sep, [facility] [place] [facility] [address] [id number] [place] [address]- 9076 Sep, [facility] [place] [facility] [address] [id number] [place] [address]- 1568 Sep, [facility] [place] [facility] [address] [id number] [place] [address]- 5209 Sep, [facility] [place] [facility] [address] [id number] [place] [address]- 0465 Sep, [facility] [place] [facility] [address] [id number] [place] [address]- 7373 Sep, [facility] [place] [facility] [address] [id number] [place] [address]- 8319 Sep, [facility] [place] [facility] [address] [id number] [place] [address]- 3727 Sep, [facility] [place] [facility] [address] [id number] [place] [address]- 6268 Sep, [facility] [place] [facility] [address] [id number] [place] [address]- 4882 Sep, [facility] [place] [facility] [address] [id number] [place] [address]- 2846 Sep, [facility] [place] [facility] [address] [id number] [place] [address]- 0208 Sep, [facility] [place] [facility] [address] [id number] [place] [address]- 7146 Sep, [facility] [place] [facility] [address] [id number] [place] [address]- 4605 Sep, [facility] [place] [facility] [address] [id number] [place] [address]- 1980 Sep, [facility] [place] [facility] [address] [id number] [place] [address]- 7083 Sep, [facility] [place] [facility] [address] [id number] [place] [address]- 0868 Sep, [facility] [place] [facility] [address] [id number] [place] [address]- 5684 Sep, [facility] [place] [facility] [address] [id number] [place] [address]- 8378 Sep, [facility] [place] [facility] [address] [id number] [place] [address]- 5156 Sep, [facility] [place] [facility] [address] [id number] [place] [address]- 6332 Sep, [facility] [place] [facility] [address] [id number] [place] [address]- 6672 Sep, [facility] [place] [facility] [address] [id number] [place] [address]- 7149 Aug, [facility] [place] [facility] [address] [id number] [place] [address]- 0684 Aug, [facility] [place] [facility] [address] [id number] [place] [address]- 0603 Aug, [facility] [place] [facility] [address] [id number] [place] [address]- 8456 Aug, [facility] [place] [facility] [address] [id number] [place] [address]- 7124 Aug, [facility] [place] [facility] [address] [id number] [place] [address]- 3353 Aug, [facility] [place] [facility] [address] [id number] [place] [address]- 5196 Aug, [facility] [place] [facility] [address] [id number] [place] [address]- 5010 Aug, [facility] [place] [facility] [address] [id number] [place] [address]- 5436 Aug, [facility] [place] [facility] [address] [id number] [place] [address]- 7203 Aug, [facility] [place] [facility] [address] [id number] [place] [address]- 4019 Aug, [facility] [place] [facility] [address] [id number] [place] [address]- 3070 Aug, [facility] [place] [facility] [address] [id number] [place] [address]- 7262 Aug, [facility] [place] [facility] [address] [id number] [place] [address]- 4317 Jul, [facility] [place] [facility] [address] [id number] [place] [address]- 9264 Jul, [facility] [place] [facility] [address] [id number] [place] [address]- 6584 Jul, [facility] [place] [facility] [address] [id number] [place] [address]- 9344 Jul, [facility] [place] [facility] [address] [id number] [place] [address]- 8815 Jul, [facility] [place] [facility] [address] [id number] [place] [address]- 8115 Jul, [facility] [place] [facility] [address] [id number] [place] [address]- 3129 Jul, [facility] [place] [facility] [address] [id number] [place] [address]- 6256 June, [facility] [place] [facility] [address] [id number] [place] [address]- 6943 June, [facility] [place] [facility] [address] [id number] [place] [address]- 6885 June, [facility] [place] [facility] [address] [id number] [place] [address]- 2526 June, [facility] [place] [facility] [address] [id number] [place] [address]- 3321 May, [facility] [place] [facility] [address] [id number] [place] [address]- 6247 May, [facility] [place] [facility] [address] [id number] [place] [address]- 0150 May, [facility] [place] [facility] [address] [id number] [place] [address]- 7519 May, [facility] [place] [facility] [address] [id number] [place] [address]- 7685 May, [facility] [place] [facility] [address] [id number] [place] [address]- 3187 May, [facility] [place] [facility] [address] [id number] [place] [address]- 6378 May, [facility] [place] [facility] [address] [id number] [place] [address]- 9240 May, [facility] [place] [facility] [address] [id number] [place] [address]- 4230 May, [facility] [place] [facility] [address] [id number] [place] [address]- 7481 May, [facility] [place] [facility] [address] [id number], [place] [address]- 2669 Apr, [facility] [place] [facility] [address] [id number] [place] [address]- 1380 Apr, [facility] [place] [facility] [address] [id number] [place] [address]- 1962 Apr, [facility] [place] [facility] [address] [id number] [place] [address]- 1876 Apr, [facility] [place] [facility] [address] [id number], [place] [address]- 4577 Apr, [facility] [place] [facility] [address] [id number] [place] [address]- 8836 Apr, [facility] [place] [facility] [address] [id number] [place] [address]- 2506 Apr, [facility] [place] [facility] [address] [id number] [place] [address]- 0776 Apr, [facility] [place] [facility] [address] [id number] [place] [address]- 3265 Apr, [facility] [place] [facility] [address] [id number] [place] [address]- 0709 Apr, [facility] [place] [facility] [address] [id number] [place] [address]- 7037 Mar, [facility] [place] [facility] [address] [id number] [place] [address]- 0670 Mar, [facility] [place] [facility] [address] [id number] [place] [address]- 7002 Mar, [facility] [place] [facility] [address] [id number] [place] [address]- 3994 Mar, [facility] [place] [facility] [address] [facility] [id number] [place] [address]- 5291 Mar, [facility] [place] [facility] [address] [id number] [place] [address]- 6568 Mar, [facility] [place] [facility] [address] [id number] [place] [address]- 8319 Jan, [facility] [place] [facility] [address] [id number] [place]19 Jan, [facility] [place] [facility] [address] [id number] [place] [address]- 2930 Jan, [facility] [place] [facility] [address] [id number] [place] [address]- 1291 Jan, [facility] [place] [facility] [address] [id number] [place] [address]- 4005 Jan, [facility] [address] [id number] [place] [address]- 1519 Jan, [facility] [address] [id number] [place] 4306 Jan, [facility] [address] [id number] [place] [address]- 1757 Jan, [facility] [address] [id number] [place] [address]- 9336 Jan, [facility] [address] [id number] [place] [address]- 7337 Dec, [facility] [address] [id number] [place] [address]- 8569 Dec, [facility] [address] [id number] [place] [address]- 1160 Dec, [facility] [address] [id number] [place] [address]- 7105 Dec, [facility] [address] [id number] [place] [address]- 7191 Dec, [facility] [address] [id number] [place] [address]- 1214 Dec, [facility] [place] [facility] [address] [id number], [place] [address]- 2581 Dec, [facility] [place] [facility] [address] [id number] [place] [address]- 2233 Dec, [facility] [place] [facility] [address] [id number] [place] [address]- 9851 Dec, [facility] [place] [facility] [address] [id number], [place] [address]- 5859 Dec, [facility] [place] [facility] [address] [id number], [place] [address]- 0097 Dec, [facility] [place] [facility] [address] [id number] [place] [address]- 7371 Nov, [facility] [place] [facility] [address] [id number] [place] [address]- 7487 Nov, [facility] [place] [facility] [address] [id number] [place] [address]- 2250 Nov, [facility] [place] [facility] [address] [id number] [place] [address]- 1643 Nov, [facility] [place] [facility] [address] [id number] [place] [address] Nov, [facility] [place] [facility] [address] [id number] [place] [address] Oct, [facility] [place] [facility] [address] [id number] [place] [address] Oct, [facility] [place] [facility] [address] [id number] [place] [address] Sep, [facility] [place] [facility] [address] [id number] [place] [address] Aug, [facility] [place] [facility] [address] [id number] [place] [address] Aug, [facility] [place] [facility] [address] [id number] [place] [address] Aug, [facility] [place] [facility] [address] [id number] [place] [address] Aug, [facility] [place] [facility] [address] [id number] [place] [address] Jul, [facility] [place] [facility] [address] [id number] [place] [address] Jul, [facility] [place] [facility] [address] [id number] [place] [address] June, [facility] [place] [facility] [address] [id number] [place] [address] June, [facility] [address] [id number] [place] [address] June, [facility] [address] [id number] [place] [address] May, [facility] [address] [id number] [place] [address] 0960 May, [facility] [address] [id number] [place] [address] 6[address] May, [facility] [address] [id number] [place] [address] Apr, [facility] [address] [id number] [place] [address] 8673 18 Apr, 2012 [facility] [address] [id number] [place] [address] 15 Apr, 2012 [facility] [address] [id number] [place] [address]70 14 Apr, 2012 [facility] [address] [id number] [place] [address] 2438 Apr, [facility] [address] [id number] [place] [address] 4[address] Apr, [facility] [address] [id number] [place] [address] 2857 Apr, [facility] [address] [id number] [place] [address] 111[address] Apr, [facility] [address] [id number] [place] [address]274 Apr, [facility] [address] [id number] [place] [address]40 Apr, [facility] [address] [id number] [place] [address] 6[address] Apr, [facility] [address] [id number] [place] [address] Apr, [facility] [place] [facility] [address] [id number] [place] [address] 9736 Apr, [facility] [address] [id number] [place] [address] Mar, [facility] [place] [facility] [address] [id number] [place] [address] 6[address] Mar, [facility] [address] [id number] [place] [address] 3500 Mar, [facility] [address] [id number] [place] [address] 0681 Mar, [facility] [address] [id number] [place] [address] 1842 Mar, [facility] [address] [id number] [place] [address] 09[address] Jan, [facility] [address] [id number] [place] [address] 28 Jan, 2012 [facility] [address] [id number] [place] [address] Jan, [facility] [address] [id number] [place] [address] 7695 22 Jan, 2012 [facility] [place] [facility] [address] [id number] [place] [address]- 0272 14 Jan, 2012 [facility] [place] [facility] [address] [id number] [place] [address] 2546 13 Jan, 2012 [facility] [place] [facility] [address] [id number] [place] [address] 2544 13 Jan, 2012 [facility] [place] [facility] [address] [id number] [place] [address] 11 Jan, 2012 [facility] [place] [facility] [address] [id number] [place] [address]- 4135 06 Jan, 2012 [facility] [place] [facility] [address] [id number] [place] [address] 06 Jan, 2012 [facility] [place] [facility] [address] [id number] [place] [address] Jan, [facility] [place] [facility] [address] [id number] [place] [address]- 8776 04 Jan, 2012 [facility] [place] [facility] [address] [id number] [place] [address] 6860 Jan, [facility] [place] [facility] [address] [id number] [place] [address] Jan, [facility] [place] [facility] [address] [id number] [place] [address]- 2026 Dec, [facility] [place] [facility] [address] [id number] [place] [address] 9117 26 Jan, 2012 [facility] [address] [id number] [place] [address]- 2089 19 Jan, 2012 [facility] [place] [facility] [address] [id number] [place] [address]- 3626 19 Jan, 2012 [facility] [address] [id number] [place] [address]- 1583 15 Jan, 2012 [facility] [place] [facility] [address] [id number] [place] [address]- 9444 15 Jan, 2012 [facility] [place] [facility] [address] [id number] [place] [address]- 9947 14 Jan, 2012 [facility] [place] [facility] [address] [id number] [place] [address]- 3805 14 Jan, 2012 [facility] [place] [facility] [address] [id number] [place] [address]- 8946 14 Jan, 2012 [facility] [place] [facility] [address] [id number] [place] [address]- 9842 14 Jan, 2012 [facility] [place] [facility] [address] [id number] [place] [address]- 5161 07 Jan, 2012 [facility] [place] [facility] [address] [id number] [place] [address]- 7346 Dec, [facility] [place] [facility] [address] [id number] [place] [address]- 2005 16 Dec, 2011 [facility] [place] [facility] [address] [id number] [place] [address]- 1688 16 Dec, 2011 [facility] [place] [facility] [address] [id number] [place] [address]- 7255 13 Nov, 2011 [facility] [place] [facility] [address] [id number] [place] [address]- 1389 13 Nov, 2011 [facility] [place] [facility] [address] [id number] [place] [address]- 1801 13 Nov, 2011 [facility] [place] [facility] [address] [id number] [place] [address]- 9653 12 Nov, 2011 [facility] [place] [facility] [address] [id number] [place] [address]- 5659 Sep, [facility] [place] [facility] [address] [id number] [place] [address]- 8437 Sep, [facility] [place] [facility] [address] [id number] [place] [address]- 8912 Aug, [facility] [place] [facility] [address] [id number] [place] [address]- 8443 Aug, [facility] [place] [facility] [address] [id number] [place] [address] Aug, [facility] [place] [facility] [address] [id number] [place] [address] Aug, [facility] [place] [facility] [address] [id number] [place] [address] June, [facility] [place] [facility] [address] [id number] [place] [address] June, [facility] [address] [id number] [place] [address] May, [facility] [place] [facility] [address] [id number] [place] [address] Apr, [facility] [address] [id number] [place] [address] Apr, [facility] [place] [facility] [address] [id number] [place] [address] Apr, [facility] [address] [id number] [place] [address] Apr, [facility] [place] [facility] [address] [id number] [place] [address] Apr, [facility] [address] [id number] [place] [address] Apr, [facility] [address] [id number] [place] [address] Mar, [facility] [address] [id number] [place] [address] Mar, [facility] [address] [id number] [place] [address] Mar, [facility] [address] [id number] [place] [address] Jan, [facility] [place] [facility] [address] [id number] [place] [address] Jan, [facility] [place] [facility] [address] [id number] [place] [address] Jan, [facility] [place] [facility] [address] [id number] [place] [address] Jan, [facility] [place] [facility] [address] [id number] [place] [address] Jan, [facility] [place] [facility] [address] [id number] [place] [address] Jan, [facility] [place] [facility] [address] [id number] [place] [address] Jan, [facility] [place] [facility] [address] [id number] [place] [address] Dec, [facility] [place] [facility] [address] [id number] [place] [address] Dec, [facility] [place] [facility] [address] [id number] [place] [address] Nov, [facility] [place] [facility] [address] [id number] [place] [address] Nov, [facility] [place] [facility] [address] [id number] [place] [address] Nov, [facility] [place] [facility] [address] [id number] [place] [address] Nov, [facility] [place] [facility] [address] [id number] [place] [address] Oct, [facility] [place] [facility] [address] [id number] [place] [address] Sep, [facility] [place] [facility] [address] [id number] [place] [address] Mar, [facility] [place] [facility] [address] [id number] [place] [address] Jan, [facility] [place] [facility] [address] [id number] [place] [address] Dec, [facility] [place] [facility] [address] [id number] [place] [address] Dec, [facility] [place] [facility] [address] [id number] [place] [address] Dec, [facility] [place] [facility] [address] [id number], [place] [address] Dec, [facility] [address] [id number] [place] [address] 26 Nov, 2009 [facility] [place] [facility] [address] [id number] [place] [address] 15 Nov, 2009 [facility] [place] [facility] [address] [id number] [place] [address] 14 Nov, 2009 [facility] [place] [facility] [address] [id number][place] [address] 14 Nov, 2009 [facility] [place] [facility] [address] [id number] [place] [address] 13 Oct, 2009 [facility] [place] [facility] [address] [id number], [place] [address] 17 Jul, 2009 [facility] [place] [facility] [address] [id number], [place] [address] 17 Jun, 2009 [facility] [place] [facility] [address] [id number], [place] [address] June, [facility] [address] [id number], [place] [address] 17 Apr, 2009 [facility] [place] [facility] [address] [id number], [place] [address] Mar, [facility] [place] [facility] [address] [id number], [place] [address] Jan, [facility] [place] [facility] [address] [id number], [place] [address] Jan, [facility] [place] [facility] [address] [id number] [place] [address] Dec, [facility] [place] [facility] [address] [id number][place] [address] 25 Dec, 2008 [facility] [place] [facility] [address] [id number], [place] [address] 13 Dec, 2008 [facility] [place] [facility] [address] [facility] [id number] [place] [address] Dec, [facility] [address] [facility] [id number][place] [address] Nov, [facility] [address] [id number] [address] [address] Jul, [facility] [address] [facility] [id number][place] [address] [address] June, IMMUNIZATIONS No Known Immunizations SOCIAL HISTORY Never Assessed REASON FOR VISIT Refill request PLAN OF CARE VITAL SIGNS MEDICATIONS Medication Instructions Dosage Frequency Start Date End Date Duration Status Tizanidine HCl 4 MG TAKE 1 TABLET BY MOUTH THREE TIMES DAILY TO FOUR TIMES DAILY NEEDED 23 Active RESULTS No Results PROCEDURES No Known procedures INSTRUCTIONS MEDICATIONS ADMINISTERED No Known Medications MEDICAL (GENERAL) HISTORY Type Description Date Medical History hypertension Medical History sleep apnea-did not tolerate CPAP Medical History oxygen dependent [facility] Medical History colonic polyps Medical History [...]
--- OUTSIDE RECORDS SUMMARY | 2018-02-26 18:51 | XMS REPORT ---
Author Author CHRIS STEVENSON [facility] Address [address] [place] [address] Care Team Providers Care Health And Safety Coordinator Name Role Phone GRAHAMELLIOTT HANNAHANY Unavailable PROBLEMS Type Condition ICD9-CM Code MFE36-SG Code Onset Dates Condition Status SNOMED Code Problem Pulmonary asbestosis J61 Active 76879870 Problem Left ventricular diastolic dysfunction I51.9 Active 435459464 Problem Chronic gout, unspecified cause, unspecified site M1A.9XX0 Active 35366628 Problem Renal cyst, left N28.1 Active 90292972 Problem History of weight loss surgery Z98.84 Active 297873968 Problem Nocturnal hypoxia G47.34 Active 553226315 Problem Obstructive sleep apnea syndrome G47.33 Active 25498494 Problem History of diverticulitis Z87.19 Active [id number] Problem Allergic rhinitis, unspecified allergic rhinitis type J30.9 Active 05673936 Problem Erectile dysfunction due to diseases classified elsewhere N52.1 Active 335280356 Problem Acute right-sided low back pain with right-sided sciatica M54.41 Active 440414271 Problem Psoriasis L40.9 Active 8397953 Problem Essential hypertension I10 Active 89955706 Problem Nephrolithiasis N20.0 Active 84456683 Problem Chronic prescription opiate use Z79.899 Active 099957345 Problem 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 Active 95797942 Problem Benign prostatic hyperplasia, presence of lower urinary tract symptoms unspecified, unspecified morphology N40.0 Active 056487213 Problem Moderate episode of recurrent major depressive disorder F33.1 Active 514585120 Problem Age-related osteoporosis without current pathological fracture M81.0 Active 50236846 Problem Low back pain M54.5 Active 008904102 Problem Anxiety F41.9 Active 83668423 Problem Urge incontinence N39.41 Active 341593243 Problem Hyperlipidemia, unspecified E78.5 Active 56629755 Problem Esophageal stricture K22.2 Active 44676315 Problem Cervicalgia M54.2 Active 3797586305647 Problem Primary insomnia F51.01 Active 419513563 ALLERGIES No Information ENCOUNTERS Encounter Location Date Diagnosis [facility] [address] [address] Oct, BMI 45.0-49.9, adult Z68.42 ; Essential hypertension I10 ; Hyperlipidemia, unspecified E78.5 ; Anxiety F41.9 ; Obstructive sleep apnea syndrome G47.33 ; Moderate episode of recurrent major depressive disorder F33.1 ; Left ventricular diastolic dysfunction I51.9 ; Acute pain of right shoulder M25.511 ; Pain of left foot M79.672 and Pain in right foot M79.671 [facility] [address] [address] Oct, Anxiety F41.9 [facility] [address] [address] Sep, Left foot pain M79.672 [facility] [address] [address]- 1644 Sep, [facility] [address] [address]68- 6366 Sep, Anxiety F41.9 [facility] [address] 59530- 4070 Sep, [facility] [id number] [place] [address] 86272- 5880 Aug, [facility] [address] 0[address]46- 9584 Aug, [facility] [address] 69222- 3565 Aug, Anxiety F41.9 [facility] [address] 0[address]- 8542 Aug, [facility] [address] 77242- 3370 Jul, [facility] [address] [address] Jul, Anxiety F41.9 [facility] [id number] [place] [address] 67676- 5166 June, Anxiety F41.9 [facility] [id number] [place] [address] 76731- 1532 June, [facility] [id number] [place] [address] 43825- 1443 June, Low back pain M54.5 ; Chronic prescription opiate use Z79.899 ; Candidal intertrigo B37.2 ; Urge incontinence N39.41 ; Essential hypertension I10 ; Moderate episode of recurrent major depressive disorder F33.1 ; Age-related osteoporosis without current pathological fracture M81.0 and BMI 45.0-49.9, adult Z68.42 [facility] [id number] [place] [address] 37926- 9181 June, [facility] [id number] [place] [address] 28130- 6247 May, Anxiety F41.9 [facility] [id number] [place] [address] 39289- 2604 May, [facility] [id number] [place] [address] 56964- 9856 May, [facility] [id number] [place] [address] 29753- 0737 Apr, Anxiety F41.9 [facility] [id number] [place] [address] 56308- 5766 Apr, [facility] [id number] [place] [address] 01952- 9185 Apr, Low back pain M54.5 [facility] [id number] [address] 4103 Apr, [facility] [id number] [address] 7214 Apr, [facility] [id number] [place] [address] 44587- 9310 Apr, Anxiety F41.9 [facility] [id number] [place] [address] 57115- 5870 Apr, Right groin pain R10.31 [place] [id number] [place] [address] 19850- 4471 Mar, [place] [id number] [place] [address] 11418- 6979 Mar, [place] [id number] [place] [address] 38165- 8694 Mar, Anxiety F41.9 [place] [id number] [place] [address] 73199- 4202 Mar, Low back pain M54.5 [place] [facility] [id number] [place] [address] 35909- 5643 Mar, Right groin pain R10.31 ; Low back pain M54.5 and BMI 45.0- 49.9, adult Z68.42 [place] [id number] [place] [address] 13617- 3452 Mar, [place] [id number] [place] [address] 53069- 1698 Mar, [facility] [id number] [place] [address] 27863- 1901 Mar, [facility] [id number] [place] [address] 58259 -7846 Mar, [facility] [id number] [place] [address] 81004 -4727 Mar, Cough R05 ; Pneumonia of right lower lobe due to infectious organism J18.1 and Abnormal chest x-ray R93.8 [place] [id number] [address] 9125 Mar, [facility] [id number] [place] [address] 14365- 1027 Mar, [facility] [id number] [place] [address] 01665- 6700 Jan, Anxiety F41.9 [facility] [id number] [place] [address] 16782- 4446 Jan, [facility] [id number] [place] [address] 20414- 8334 Jan, Moderate episode of recurrent major depressive disorder F33.1 [facility] [id number] [place] [address] 87854- 0287 Jan, Subacromial bursitis of right shoulder joint M75.51 ; Shortness of breath on exertion R06.02 and BMI 45.0-49.9, adult Z68.42 [facility] [id number] [place] [address] 57588- 9826 Dec, Anxiety F41.9 [facility] [id number] [place] [address] 55174- 6019 Dec, [facility] [id number] [place] [address] 85621- 4980 Dec, Low back pain M54.5 [facility] [id number] [place] [address] 63286- 8965 Oct, Low back pain M54.5 [facility] [address] [address]- 4413 Sep, [facility] [id number] [place] [address] 69016- 1399 Sep, Erectile dysfunction due to diseases classified elsewhere N52.1 [facility] [id number] [place] [address] 17653- 2861 Sep, Erectile dysfunction due to diseases classified elsewhere N52.1 [facility] [id number] [place] [address] 45220- 1075 Sep, [facility] [id number] [place] [address] 08585- 2801 Sep, Erectile dysfunction due to diseases classified elsewhere N52.1 [facility] [id number] [place] [address] 04851- 6759 Sep, Low back pain M54.5 and Anxiety F41.9 [facility] [id number] [place] [address] 01197 -4754 Aug, Acute allergic rhinitis J30.9 [facility] [address] 97655- 8317 Aug, [facility] [id number] [place] [address] 93815- 2782 Aug, Anxiety F41.9 [facility] [id number] [place] [address] 94244- 3601 Jul, Low back pain M54.5 ; Chronic prescription opiate use Z79.899 and Essential hypertension I10 [facility] [id number] [place] [address] 66103- 6884 Jul, Anxiety F41.9 and Low back pain M54.5 [facility] [id number] [place] [address] 98701- 1442 June, [facility] [id number] [place] [address] 24772- 2955 June, Anxiety F41.9 [facility] [id number] [place] [address] 58924- 0355 May, Low back pain M54.5 [facility] [id number] [place] [address] 33951- 3212 May, [facility] [id number] [place] [address] 32342- 9914 May, Anxiety F41.9 [facility] [id number] [place] [address] 31515- 5842 Apr, [place] [id number] [place] [address] 98256- 5323 Apr, Low back pain M54.5 [facility] [id number] [place] [address] 82900- 6734 Apr, Moderate episode of recurrent major depressive disorder F33.1 [place] [id number] [place] [address] 06810- 2019 Apr, Anxiety F41.9 [place] [facility] [address] 62804- 2596 Apr, Low back pain M54.5 [place] [id number] [place] [address] 03728- 4154 Apr, Elevated alkaline phosphatase level R74.8 [place] [facility] [id number] [place] [address] 50762- 0639 10 Apr, 2016 Alkaline phosphatase elevation R74.8 [place] [id number] [place] [address] 70806- 9549 06 Apr, 2016 Anxiety F41.9 [facility] [place] [id number] [place] [address] 71483- 3607 Apr, Low back pain M54.5 [facility] [id number] [place] [address] 53155- 2654 Apr, History of weight loss surgery Z98.84 ; Encounter for hepatitis C screening test for low risk patient Z11.59 ; History of herpes genitalis Z86.19 ; Essential hypertension I10 ; Hyperlipidemia, unspecified E78.5 ; Exposure to STD Z20.2 and Benign prostatic hyperplasia, presence of lower urinary tract symptoms unspecified, unspecified morphology N40.0 [facility] [id number] [place] [address] 86000- 4762 02 Apr, 2016 [facility] [address] [address]- 3073 Mar, [facility] [id number] [address]- 0730 Mar, [facility] [address] [address]- 5728 Mar, [facility] [id number] [place] [address] 60107- 3613 Mar, Acute right-sided low back pain with right-sided sciatica M54.41 [facility] [id number] [place] [address] 53418- 7083 Mar, Low back pain M54.5 [facility] [address] [address] Mar, Muscle strain of chest wall, initial encounter S29.011A ; Muscle strain of right thigh, initial encounter S76.911A and Acute non- recurrent maxillary sinusitis J01.00 [facility] [id number] [address]- 9251 Mar, Benign prostatic hyperplasia, presence of lower urinary tract symptoms unspecified, unspecified morphology N40.0 [facility] [id number] [address]- 4550 Jan, Low back pain M54.5 [facility] [id number] [address]- 7222 13 Jan, 2016 Low back pain M54.5 ; Essential hypertension I10 ; Hyperlipidemia, unspecified E78.5 ; Anxiety F41.9 ; Moderate episode of recurrent major depressive disorder F33.1 ; Primary insomnia F51.01 ; Exposure to STD Z20.2 ; Encounter for hepatitis C screening test for low risk patient Z11.59 and History of herpes genitalis Z86.19 [facility] [address] [address]- 7756 17 Jan, 2016 [facility] [id number] [place] [address] 04279- 7953 Nov, [facility] [address] 09656- 6153 Nov, Anxiety F41.9 ; Cervicalgia M54.2 ; Moderate episode of recurrent major depressive disorder F33.1 and Encounter for immunization Z23 [facility] [id number] [place] [address] 58967- 2205 Oct, [facility] [id number] [place] [address] 10619- 7917 Oct, [facility] [address] 89027- 3105 Oct, [facility] [id number] [place] [address] 78810- 3508 Oct, [facility] [address] 96991- 7189 Sep, [facility] [id number] [place] [address] 97967- 9041 Aug, Low back pain M54.5 ; Anxiety F41.9 ; Primary insomnia F51.01 and Chronic prescription opiate use Z79.899 [facility] [id number] [place] [address] 32367- 0735 Jul, [facility] [id number] [place] [address] 46859- 8067 Jul, [facility] [id number] [place] [address] 84394- 0914 Jul, [facility] [id number] [place] [address] 48165- 0829 Jul, [facility] [id number] [place] [address] 26056- 8827 Jul, [facility] [id number] [place] [address] 06760- 4216 June, [facility] [address] [address]- 5384 June, [facility] [id number] [place] [address] 11511- 2910 June, [facility] [id number] [address]- 2888 June, [facility] [id number] [place] [address] 03907- 0629 May, Preoperative cardiovascular examination Z01.810 [facility] [id number] [place] [address] 12797- 6791 May, [facility] [id number] [place] [address] 90013- 9861 Apr, [facility] [id number] [place] [address] 17446- 7919 Apr, Osteoarthritis of right knee M17.9 [facility] [id number] [place] [address] 55048- 6996 Apr, [facility] [id number] [place] [address] 33435- 6666 16 May, 2015 [facility] [address] [address]- 6442 Apr, [facility] [id number] [place] [address] 38222- 5267 Apr, [facility] [address] [address]- 8288 08 May, 2015 History of excessive cerumen Z78.9 ; Obstructive sleep apnea syndrome G47.33 ; History of diverticulitis Z87.19 and Nephrolithiasis N20.0 [facility] [address] [address]- 9738 Apr, [facility] [id number] [place] [address] 88735 -0195 Apr, Abdominal pain R10.9 [facility] [id number] [place] [address] 92950- 9093 Apr, [facility] [id number] [place] [address] 07730- 1672 04 Apr, 2015 Osteoarthritis of right knee M17.9 [facility] [address] 13872- 7956 Mar, [facility] [address] 18408- 5507 Mar, [facility] [address] 74465- 1121 14 Mar, 2015 [facility] [address] 04970- 0462 Mar, [facility] [address] 34331 -2129 Mar, Pyelonephritis N12 ; Left-sided thoracic back pain M54.6 ; Hematuria, unspecified R31.9 and Kidney stone N20.0 [facility] [place] [id number] [place] [address] 90296- 8624 Mar, History of weight loss surgery Z98.84 [facility] [id number] [place] [address] 16024- 5499 Mar, History of weight loss surgery Z98.84 and Hyperlipidemia, unspecified E78.5 [facility] [id number] [place] [address] 71166- 9847 Mar, Low back pain M54.5 ; Chronic prescription opiate use Z79.899 ; Hyperlipidemia, unspecified E78.5 ; Spasm of back muscles M62.830 and History of weight loss surgery Z98.84 [facility] [id number] [place] [address] 14131- 5816 Jan, [facility] [address] 14800- 6876 Jan, [facility] [id number] [address] 6741 Jan, [facility] [id number] [place] [address] 76449- 6372 Dec, [facility] [id number] [place] [address] 92932- 7018 Dec, [facility] [id number] [place] [address] 60828- 1930 Dec, [facility] [id number] [place] [address] 079329- 7826 Nov, [facility] [id number] [place] [address] 737460- 2488 Nov, Obstructive sleep apnea syndrome G47.33 and Pharyngoesophageal dysphagia R13.14 [facility] [id number] [place] [address] 62708- 1943 Nov, [facility] [id number] [place] [address] 51980- 0305 Nov, [facility] [id number] [place] [address] 47256- 6326 Nov, [facility] [id number] [id number] 30 Oct, 2014 Dental examination V72.2 [facility] [id number] [address]- 6449 Oct, [facility] [id number] [address]- 1810 Oct, [facility] [id number] [place] [address] 913718- 7919 23 Oct, 2014 [facility] [id number] 6828 17 Oct, 2014 [facility] [id number] [place] [address] 26022- 5280 Oct, BPH (benign prostatic hyperplasia) 600.00 and Urinary frequency 788.41 [facility] [address] 63834- 8324 Oct, [facility] [id number] [place] [address] 89295- 8618 Oct, [facility] [address] 22408- 7351 Oct, [facility] [address] 76573- 4328 Sep, Cerumen impaction 380.4 ; Cerumen debris on tympanic membrane 380.4 ; Psoriasis 696.1 and MICKY (secretory otitis media) 381.4 [facility] [address] [id number] Sep, Dental examination V72.2 [facility] [id number] [place] [address] 58043- 6721 Sep, Fatigue 780.79 ; Irritable bowel syndrome 564.1 ; Overweight 278.02 ; Poor sleep V69.4 ; Shaking spells 781.0 and Broken tooth 873.63 [facility] [id number] [place] [address] 35262- 5376 Sep, [facility] [id number] [place] [address] 07737- 5158 Sep, [facility] [id number] [place] [address] 10942- 5438 Aug, [facility] [id number] [place] [address] 02816- 6021 Jul, [facility] [id number] [place] [address] 43681- 0124 Jul, [facility] [id number] [place] [address] 22266- 6228 Jul, [place] [id number] [id number] [place] [address]- 7970 Jul, [facility] [address] [id number] [place] [address]- 9163 June, Arthritis of knee, right 716.96 [facility] [address] [id number] [place] [address]- 8241 June, [facility] [address] [id number] [place] [address] June, Elevated blood pressure reading without diagnosis of hypertension 796.2 [facility] [address] [id number] [place] [address] June, [facility] [address] [id number] [place] [address] June, [facility] [id number] [place] [address] June, [facility] [address] [id number] [place] [address] June, [facility] [id number] [place] [address] May, [facility] [address] [id number] [place] [address] May, [facility] [address] [id number] [place] [address] Apr, [facility] [address] [id number] [place] [address] Apr, [facility] [address] [id number] [place] [address] Apr, [facility] [address] [id number] [place] [address] Apr, [facility] [address] [id number] [place] [address] Apr, [facility] [place] [facility] [address] [id number] [place] [address] Apr, 2014 [facility] [place] [facility] [address] [id number] [place] [address] Apr, 2014 [facility] [place] [facility] [address] [id number] [place] [address] Apr, 2014 [facility] [place] [facility] [address] [id number] [place] [address] Apr, 2014 [facility] [place] [facility] [address] [id number] [place] [address] Apr, 2014 [facility] [place] [facility] [address] [id number] [place] [address] Apr, 2014 [facility] [place] [facility] [address] [id number] [place] [address] Apr, 2014 [facility] [place] [facility] [address] [id number] [place] [address] Apr, 2014 [facility] [place] [facility] [address] [id number] [place] [address] Apr, 2014 [facility] [place] [facility] [address] [id number] [place] [address] Apr, 2014 [facility] [place] [facility] [address] [id number] [place] [address] Apr, 2014 [facility] [place] [facility] [address] [id number] [place] [address] Apr, 2014 [facility] [place] [facility] [address] [id number] [place] [address]- 2954 Apr, 2014 [facility] [place] [facility] [address] [id number] [place] [address] 42[address] Apr, 2014 [facility] [place] [facility] [address] [id number] [place] [address] 1238 Apr, 2014 [facility] [place] [facility] [address] [facility] [id number] [place] [address] 6927 Apr, 2014 [facility] [place] [facility] [address] [id number] [place] [address] 9506 Apr, 2014 [facility] [place] [facility] [address] [id number] [place] [address]- 2546 Apr, 2014 [facility] [place] [facility] [address] [facility] [id number] [place] [address] 9174 Apr, 2014 [facility] [place] [facility] [address] [facility] [id number] [place] [address]- 8444 Apr, 2014 [facility] [place] [facility] [address] [facility] [id number] [place] [address]- 6694 Apr, 2014 [facility] [place] [facility] [address] [facility] [id number] [place] [address]- 7219 Apr, 2014 [facility] [place] [facility] [address] [id number] [place] [address] Apr, 2014 [facility] [place] [facility] [address] [facility] [id number] [place] [address]- 9153 Apr, 2014 [facility] [place] [facility] [address] [id number] [place] [address] 3885 Apr, 2014 [facility] [place] [facility] [address] [id number] [address] 49[address] Apr, 2014 [facility] [place] [facility] [address] [facility] [id number] [place] [address]- 9734 Apr, 2014 [facility] [place] [facility] [address] [facility] [id number] [place] [address]- 9267 Apr, 2014 [facility] [place] [facility] [address] [facility] [id number] [address] 7462 Mar, [facility] [place] [facility] [address] [facility] [id number] [place] [address]- 5094 Mar, [facility] [place] [facility] [address] [id number] [address] 2110 Mar, [facility] [address] [id number] [place] [address]- 4971 Mar, [facility] [place] [facility] [address] [id number] [place] [address]- 4540 Mar, [facility] [place] [facility] [address] [id number] [place] [address]- 1977 Mar, [facility] [place] [facility] [address] [id number] [place] [address]- 0413 Mar, [facility] [place] [facility] [address] [id number] [place] [address]- 8133 Mar, [facility] [place] [facility] [address] [id number] [place] [address]- 0920 Mar, [facility] [place] [facility] [address] [id number] [place] [address]- 0851 Mar, [facility] [place] [facility] [address] [id number] [place] [address]- 3736 Jan, [facility] [place] [facility] [address] [id number] [place] [address]- 6617 Jan, [facility] [place] [facility] [address] [id number] [place] [address]- 9302 Jan, [facility] [place] [facility] [address] [id number] [place] [address]- 1252 Jan, [facility] [place] [facility] [address] [id number] [place] [address]- 0583 Jan, [facility] [place] [facility] [address] [id number] [place] [address]- 6760 Jan, [facility] [place] [facility] [address] [id number] [place] [address]- 9453 Jan, [facility] [place] [facility] [address] [id number] [place] [address]- 3495 Jan, [facility] [place] [facility] [address] [id number] [place] [address]- 2127 05 Jan, 2014 [facility] [place] [facility] [address] [id number] [place] [address]- 9023 Jan, [facility] [place] [facility] [address] [id number] [place] [address]- 0776 Jan, [facility] [place] [facility] [address] [id number] [place] [address]- 1448 Jan, [facility] [place] [facility] [address] [id number] [place] [address]- 5039 Dec, [facility] [place] [facility] [address] [id number] [place] [address]- 7361 Dec, [facility] [place] [facility] [address] [id number] [place] [address]- 4601 Dec, [facility] [place] [facility] [address] [id number] [place] [address]- 9655 Dec, [facility] [place] [facility] [address] [id number] [place] [address]- 1622 Dec, [facility] [place] [facility] [address] [id number] [place] [address]- 2987 Dec, [facility] [place] [facility] [address] [id number] [place] [address]- 9666 Dec, [facility] [place] [facility] [address] [id number] [place] [address]- 5904 Dec, [facility] [place] [facility] [address] [id number] [place] [address]- 2580 Dec, [facility] [place] [facility] [address] [id number] [place] [address]846 Dec, [facility] [place] [facility] [address] [id number] [place] [address] Nov, [facility] [place] [facility] [address] [id number] [place] [address]- 6272 Nov, [facility] [place] [facility] [address] [id number] [place] [address]- 5079 Nov, [facility] [place] [facility] [address] [id number] [place] [address]- 6040 Nov, [facility] [place] [facility] [address] [id number] [place] [address]- 3721 Nov, [facility] [place] [facility] [address] [id number] [place] [address]- 9783 Nov, [facility] [place] [facility] [address] [id number] [place] [address]- 2767 Nov, [facility] [place] [facility] [address] [id number] [place] [address]- 7672 Nov, [facility] [place] [facility] [address] [id number] [place] [address]- 6901 Nov, [facility] [place] [facility] [address] [id number] [address]- 4866 Nov, [facility] [place] [facility] [address] [id number] [place] [address]- 0345 Nov, [facility] [place] [facility] [address] [id number] [place] [address]- 4745 17 Nov, 2013 [facility] [place] [facility] [address] [id number] [address]- 1501 14 Nov, 2013 [facility] [place] [facility] [address] [id number] [place] [address]- 7055 14 Nov, 2013 [facility] [place] [facility] [address] [id number] [place] [address]- 3625 10 Nov, 2013 [facility] [place] [facility] [address] [id number] [address]- 3299 10 Nov, 2013 [facility] [place] [facility] [address] [id number] [place] [address]- 4950 08 Nov, 2013 [facility] [place] [facility] [address] [id number] [place] [address]- 7457 08 Nov, 2013 [facility] [place] [facility] [address] [id number] [place] [address]- 6134 Nov, [facility] [place] [facility] [address] [id number] [place] [address]- 1772 Nov, [facility] [place] [facility] [address] [id number] [place] [address]- 7708 Oct, 2013 [facility] [place] [facility] [address] [id number] [place] [address]- 0627 Oct, 2013 [facility] [place] [facility] [address] [id number] [place] [address]- 0197 Oct, 2013 [facility] [place] [facility] [address] [id number] [place] [address]- 6714 Oct, 2013 [facility] [place] [facility] [address] [id number] [place] [address]- 4345 Oct, 2013 [facility] [place] [facility] [address] [id number] [place] [address]- 9526 Oct, 2013 [facility] [place] [facility] [address] [id number] [place] [address]- 4054 Oct, [facility] [place] [facility] [address] [id number] [place] [address]- 8493 Oct, [facility] [place] [facility] [address] [id number] [place] [address]- 4381 Oct, 2013 [facility] [place] [facility] [address] [id number] [place] [address]- 2548 Oct, 2013 [facility] [place] [facility] [address] [id number] [place] [address]- 1727 Sep, [facility] [place] [facility] [address] [id number] [place] [address]- 2954 Sep, [facility] [place] [facility] [address] [id number] [place] [address]- 9366 Sep, [facility] [place] [facility] [address] [id number] [facility] [place] [address]- 1814 Sep, [facility] [place] [facility] [address] [id number] [place] [address]- 7990 Sep, [facility] [place] [facility] [address] [id number] [place] [address]- 6756 Sep, [facility] [place] [facility] [address] [id number] [place] [address]- 0208 Sep, [facility] [place] [facility] [address] [id number] [place] [address]- 3978 Sep, [facility] [place] [facility] [address] [id number] [place] [address]- 2881 Sep, [facility] [place] [facility] [address] [id number] [place] [address]- 5799 Sep, [facility] [place] [facility] [address] [id number] [place] [address]- 3265 Sep, [facility] [place] [facility] [address] [id number] [place] [address]- 7233 Sep, [facility] [place] [facility] [address] [id number] [place] [address]- 9405 Sep, [facility] [place] [facility] [address] [id number] [place] [address]- 5097 Sep, [facility] [place] [facility] [address] [id number] [place] [address]- 8186 Sep, [facility] [place] [facility] [address] [id number] [facility] [place] [address]- 9541 Sep, [facility] [place] [facility] [address] [id number] [place] [address]- 8552 Sep, [facility] [place] [facility] [address] [id number] [place] [address]- 8633 Sep, [facility] [place] [facility] [address] [id number] [place] [address]- 7445 Sep, [facility] [place] [facility] [address] [id number] [place] [address]- 2599 Sep, [facility] [place] [facility] [address] [id number] [place] [address]- 8880 Sep, [facility] [place] [facility] [address] [id number] [place] [address]- 6362 Sep, [facility] [place] [facility] [address] [id number] [place] [address]- 6852 Sep, [facility] [place] [facility] [address] [id number] [place] [address]- 3339 Sep, [facility] [place] [facility] [address] [id number] [place] [address]- 1805 Sep, [facility] [place] [facility] [address] [id number] [place] [address]- 0133 Aug, [facility] [place] [facility] [address] [id number] [place] [address]- 2069 Aug, [facility] [place] [facility] [address] [id number] [place] [address]- 5311 Aug, [facility] [place] [facility] [address] [id number] [place] [address]- 1547 Aug, [facility] [place] [facility] [address] [id number] [place] [address]- 5950 Aug, [facility] [place] [facility] [address] [id number] [place] [address]- 8883 Aug, [facility] [place] [facility] [address] [id number] [place] [address]- 3055 Aug, [facility] [place] [facility] [address] [id number] [place] [address]- 5616 Aug, [facility] [place] [facility] [address] [id number] [place] [address]- 2421 Aug, [facility] [place] [facility] [address] [id number] [place] [address]- 0689 Aug, [facility] [place] [facility] [address] [id number] [place] [address]- 2206 Aug, [facility] [place] [facility] [address] [id number] [place] Aug, [facility] [place] [facility] [address] [id number] [place] [address]- 0233 Aug, [facility] [place] [facility] [address] [id number] [place] [address]- 4576 Jul, [facility] [place] [facility] [address] [id number] [place] [address]- 7302 Jul, [facility] [place] [facility] [address] [id number] [place] [address]- 6072 Jul, [facility] [place] [facility] [address] [id number] [place] [address]- 2640 Jul, [facility] [place] [facility] [address] [id number] [place] [address]- 9312 Jul, [facility] [place] [facility] [address] [id number] [place] [address]- 6594 Jul, [facility] [place] [facility] [address] [id number] [place] [address]- 0398 Jul, [facility] [place] [facility] [address] [id number] [place] [address]- 2061 June, [facility] [place] [facility] [address] [id number] [place] [address]- 0650 June, [facility] [place] [facility] [address] [id number] [place] [address]- 6072 June, [facility] [place] [facility] [address] [id number] [place] [address]- 9092 June, [facility] [place] [facility] [address] [id number] [place] [address]- 9186 May, [facility] [place] [facility] [address] [id number] [place] [address]- 0693 May, [facility] [place] [facility] [address] [id number] [place] [address]- 5588 May, [facility] [place] [facility] [address] [id number] [place] [address] May, [facility] [place] [facility] [address] [id number] [place] [address]- 7977 May, [facility] [place] [facility] [address] [id number] [place] [address]- 1196 May, [facility] [place] [facility] [address] [id number] [place] [address]- 2242 May, [facility] [place] [facility] [address] [id number] [place] [address]- 4503 May, [facility] [place] [facility] [address] [id number] [place] [address]- 7976 May, [facility] [place] [facility] [address] [id number] [place] [address]- 1413 May, [facility] [place] [facility] [address] [id number] [place] [address]- 0737 Apr, [facility] [place] [facility] [address] [id number] [place] [address]- 3475 Apr, [facility] [place] [facility] [address] [id number] [address]- 4731 Apr, [facility] [place] [facility] [address] [id number] [place] [address]- 1156 Apr, [facility] [place] [facility] [address] [id number] [place] [address]- 8162 Apr, [facility] [place] [facility] [address] [id number] [place] [address]- 6096 Apr, [facility] [place] [facility] [address] [id number] [place] [address]- 8774 Apr, [facility] [address] [id number] [place] [address]- 0016 Apr, [facility] [place] [facility] [address] [id number] [place] [address]- 1176 Apr, [facility] [place] [facility] [address] [id number] [place] [address]- 5226 Apr, [facility] [place] [facility] [address] [id number] [place] [address]- 0209 Mar, [facility] [place] [facility] [address] [id number] [place] [address]- 0729 Mar, [facility] [place] [facility] [address] [id number] [place] [address]- 1638 Mar, [facility] [place] [facility] [address] [id number] [place] [address]- 6388 Mar, [facility] [place] [facility] [address] [id number] [place] [address]- 9711 Mar, [facility] [place] [facility] [address] [id number] [place] [address]- 8226 Mar, [facility] [address] [facility] [id number] [place] [address]- 0183 Jan, [facility] [place] [facility] [address] [id number] [place] [address]- 5364 Jan, [facility] [place] [facility] [address] [id number] [place] [address]- 9781 Jan, [facility] [place] [facility] [address] [id number] [place] [address]- 8445 Jan, [facility] [place] [facility] [address] [id number] [place] [address]- 8253 Jan, [facility] [place] [facility] [address] [id number] [place] [address]- 1067 Jan, [facility] [place] [facility] [address] [id number] [place] [address]- 7407 Jan, [facility] [place] [facility] [address] [id number] [place] [address]- 3899 Jan, [facility] [place] [facility] [address] [id number] [place] [address]- 2657 Jan, [facility] [place] [facility] [address] [id number] [place] [address]- 1449 Dec, [facility] [address] [id number] [place] [address]- 6938 Dec, [facility] [place] [facility] [address] [id number] [place] [address]- 1029 Dec, [facility] [address] [id number] [place] [address]- 3900 Dec, [facility] [address] [id number] [place] [address]- 7997 Dec, [facility] [address] [id number] [place] [address]- 7158 Dec, [facility] [address] [id number] [address]- 9457 Dec, [facility] [place] [facility] [address] [id number] [place] [address]- 2236 Dec, [facility] [place] [facility] [address] [id number] [place] [address]- 5716 Dec, [facility] [place] [facility] [address] [id number] [place] [address]- 6250 Dec, [facility] [place] [facility] [address] [id number] [place] [address]- 6409 Dec, [facility] [place] [facility] [address] [id number] [place] [address]- 9989 Nov, [facility] [place] [facility] [address] [id number] [place] [address]- 1811 Nov, [facility] [place] [facility] [address] [id number] [place] [address]- 5753 Nov, [facility] [place] [facility] [address] [id number] [place] [address]- 0922 Nov, [facility] [place] [facility] [address] [id number] [place] [address]- 9222 Nov, [facility] [place] [facility] [address] [id number] [place] [address]- 9283 Oct, [facility] [place] [facility] [address] [id number] [place] [address]- 8181 Oct, [facility] [place] [facility] [address] [id number] [place] [address]- 3687 Sep, [facility] [place] [facility] [address] [id number] [place] [address]- 3542 Aug, [facility] [place] [facility] [address] [id number] [place] [address]- 4879 Aug, [facility] [place] [facility] [address] [id number] [place] [address]- 5208 Aug, [facility] [place] [facility] [address] [id number] [place] [address]- 4113 Aug, [facility] [place] [facility] [address] [id number] [place] [address]- 9839 Jul, [facility] [place] [facility] [address] [id number] [place] [address]- 7380 Jul, [facility] [place] [facility] [address] [id number] [place] [address]- 3122 June, [facility] [place] [facility] [address] [id number] [place] [address]- 9544 June, [facility] [place] [facility] [address] [id number] [place] [address]- 0982 June, [facility] [place] [facility] [address] [id number] [place] [address]- 8684 08 May, [address] [facility] [address] [id number] [place] [address] 04 May, 2012 [facility] [address] [id number] [place] [address] May, [facility] [address] [id number] [place] [address] 18 Apr, 2012 [facility] [address] [id number] [place] [address] 18 Apr, 2012 [facility] [address] [id number] [place] [address] 15 Apr, 2012 [facility] [address] [facility] [id number] [place] [address] 14 Apr, 2012 [facility] [address] [id number] [place] [address] Apr, [facility] [address] [facility] [id number] [place] [address] 27 Apr, 2012 [facility] [address] [id number] [place] [address] Apr, [facility] [address] [id number] [place] [address] Apr, [facility] [address] [id number] [place] [address] Apr, [facility] [address] [facility] [id number] [place] [address] 20 Apr, 2012 [facility] [address] [facility] [id number] [place] [address] 6533 19 Apr, 2012 [facility] [address] [facility] [id number] [place] [address] 07 Apr, 2012 [facility] [id number] [place] [address] 07 Apr, 2012 [facility] [address] [id number] [place] [address] Mar, [facility] [place] [facility] [address] [id number] [place] [address] Mar, [facility] [address] [id number] [place] [address]66 Mar, [facility] [place] [facility] [address] [id number] [place] [address] Mar, [facility] [address] [id number] [place] [address]269 Mar, [facility] [address] [id number] [place] [address]- 4[address] Jan, [facility] [address] [id number] [place] [address]- [address] Jan, [facility] [address] [id number] [place] [address] Jan, [facility] [address] [id number] [place] [address]- [address] Jan, [facility] [address] [id number] [place] [address] 0245 14 Jan, 2012 [facility] [address] [id number] [place] [address] 39[address] Jan, [facility] [place] [facility] [address] [id number] [place] [address]- [address]124 13 Jan, 2012 [facility] [place] [facility] [address] [id number] [place] [address]- 9006 11 Jan, 2012 [facility] [place] [facility] [address] [id number] [place] [address] 06 Jan, 2012 [facility] [place] [facility] [address] [id number] [place] [address]- 2618 06 Jan, 2012 [facility] [place] [facility] [address] [id number] [place] [address] 0551 04 Jan, 2012 [facility] [place] [facility] [address] [id number] [place] [address] 5498 Jan, [facility] [place] [facility] [address] [id number] [place] [address] 98[address] Jan, [facility] [place] [facility] [address] [id number] [place] [address] 91[address] Jan, [facility] [place] [facility] [address] [id number] [place] [address]29 Dec, [facility] [place] [facility] [address] [id number] [place] [address]- 5535 26 Jan, 2012 [facility] [place] [facility] [address] [id number] [place] [address] Dec, [facility] [place] [facility] [address] [id number] [place] [address]- 5697 19 Jan, 2012 [facility] [address] [id number] [place] [address] 8043 15 Jan, 2012 [facility] [place] [facility] [address] [id number] [place] [address] 9450 15 Jan, 2012 [facility] [place] [facility] [address] [id number] [place] [address]- 4983 14 Jan, 2012 [facility] [place] [facility] [address] [id number] [place] [address]- 8032 14 Jan, 2012 [facility] [place] [facility] [address] [id number] [place] [address]- 8999 14 Jan, 2012 [facility] [place] [facility] [address] [id number] [place] [address]- 8525 14 Jan, 2012 [facility] [place] [facility] [address] [id number] [place] [address]- 7696 07 Jan, 2012 [facility] [place] [facility] [address] [id number] [place] [address]- 2434 Dec, [facility] [place] [facility] [address] [id number] [place] [address]- 3528 16 Dec, 2011 [facility] [place] [facility] [address] [id number] [place] [address]- 8946 16 Dec, 2011 [facility] [place] [facility] [address] [id number] [place] [address]- 7599 13 Nov, 2011 [facility] [place] [facility] [address] [id number] [place] [address]- 0267 13 Nov, 2011 [facility] [place] [facility] [address] [id number] [place] [address]- 8820 13 Nov, 2011 [facility] [place] [facility] [address] [id number] [place] [address]- 0226 12 Nov, 2011 [facility] [place] [facility] [address] [id number] [place] [address]- [address]166 Sep, [facility] [place] [facility] [address] [id number] [place] [address]- [address]95 Sep, [facility] [place] [facility] [address] [id number] [place] [address]- 93[address] Aug, [facility] [place] [facility] [address] [id number] [place] [address]- 7076 Aug, [facility] [place] [facility] [address] [id number] [place] [address]- 0084 Aug, [facility] [place] [facility] [address] [id number] [place] [address]- 5959 Aug, [facility] [place] [facility] [address] [id number] [place] [address]- 9286 June, [facility] [place] [facility] [address] [id number] [place] [address]- 9506 June, [facility] [place] [facility] [address] [id number] [place] [address]- 6390 May, [facility] [place] [facility] [address] [id number] [place] [address]- 7606 Apr, [facility] [address] [id number] [place] [address]- 6635 Apr, [facility] [place] [facility] [address] [id number] [place] [address]- 7206 Apr, [facility] [address] [id number] [place] [address]- 0516 Apr, [facility] [place] [facility] [address] [id number] [place] [address]- 2436 Apr, [facility] [place] [facility] [address] [id number] [place] [address]- 9966 Apr, [facility] [address] [id number] [place] [address]- 5526 Mar, [facility] [address] [id number] [place] [address] Mar, [facility] [address] [id number] [place] [address] Mar, [facility] [address] [id number] [place] [address] Jan, [facility] [address] [id number] [place] [address] Jan, [facility] [address] [id number] [place] [address] Jan, [facility] [place] [facility] [address] [id number] [place] [address] Jan, [facility] [place] [facility] [address] [id number] [place] [address] Jan, [facility] [place] [facility] [address] [id number] [place] [address] Jan, [facility] [place] [facility] [address] [id number] [place] [address] Jan, [facility] [place] [facility] [address] [id number] [place] [address] Dec, [facility] [place] [facility] [address] [id number] [place] [address] Dec, [facility] [place] [facility] [address] [id number] [place] [address] Nov, [facility] [place] [facility] [address] [id number] [place] [address] Nov, [facility] [place] [facility] [address] [id number] [place] [address] Nov, [facility] [place] [facility] [address] [id number] [place] [address] Nov, [facility] [place] [facility] [address] [id number] [place] [address] Oct, [facility] [place] [facility] [address] [id number] [place] [address] Sep, [facility] [place] [facility] [address] [id number] [place] [address] Mar, [facility] [place] [facility] [address] [id number] [place] [address] Jan, [facility] [place] [facility] [address] [id number] [place] [address] Dec, [facility] [place] [facility] [address] [id number] [place] [address] Dec, [facility] [place] [facility] [address] [id number] [place] [address] Dec, [facility] [place] [facility] [address] [id number] [place] [address] Dec, [facility] [place] [facility] [address] [id number] [place] [address] Nov, [facility] [place] [facility] [address] [id number] [address] 15 Nov, 2009 [facility] [place] [facility] [address] [id number] [place] [address] 14 Nov, 2009 [facility] [place] [facility] [address] [id number] [place] 14 Nov, 2009 [facility] [place] [facility] [address] [id number] [place] [address] 13 Oct, 2009 [facility] [place] [facility] [address] [id number] [address] 17 Jul, 2009 [facility] [place] [facility] [address] [id number] [place] [address] 17 Jun, 2009 [facility] [place] [facility] [address] [id number] [place] [address] June, [facility] [address] [id number] [address] 17 Apr, 2009 [facility] [place] [facility] [address] [id number] [address] Mar, [facility] [place] [facility] [address] [id number] [place] [address] 24 Jan, 2009 [facility] [place] [facility] [address] [id number] [address] Jan, [facility] [place] [facility] [address] [id number] [address] 27 Dec, 2008 [facility] [place] [facility] [address] [id number] [address] 25 Dec, 2008 [facility] [place] [facility] [address] [id number] [address] 13 Dec, 2008 [facility] [place] [facility] [address] [id number] [address] 13 Dec, 2008 [facility] [place] [facility] [address] [id number] [place] [address] 30 Nov, 2008 [facility] [place] [facility] [address] [facility] [id number] [place] [id number] Jul, [facility] [address] [facility] [id number] [address] June, IMMUNIZATIONS No Known Immunizations SOCIAL HISTORY Never Assessed REASON FOR VISIT Controlled Medication Refill- Due 10/14/17 PLAN OF CARE VITAL SIGNS MEDICATIONS Medication [...] tolerate CPAP Medical History oxygen dependent at [facility] Medical History colonic polyps Medical History [...]
--- NOTE | 2018-02-26 18:52 | ED Lower Extremity ---
General Chief Complaint: Lower Extremity Stated Complaint: BACK PAIN Nursing Triage Note: pt brought in by er with complaint of right knee pain and low back pain. Nursing Sepsis Screen: No Definite Risk Source: patient Exam Limitations: no limitations History of Present Illness Date Seen by Provider: Feb 26, 2018 Time Seen by Provider: 18:40 Initial Comments Patient presents to ER by EMS with chief complaint that tonight he had some pain in the past 2 or 3 days has gotten progressively worsening his right knee. He's not noticed any swelling or redness. He's had a minor nonproductive cough for the past few weeks but that's normal for him and he has a history of COPD. He denies any fevers, chills or rash. He denies any dysuria, hesitancy or incontinence of bowel or bladder. He has a past 2 years been also having some pain in his low back radiating down the back of his leg to just above his knee. Looks more concerning however his knee. He had it replaced a few years ago by Dr. Baca. He denies history of rheumatoid arthritis. Allergies and Home Medications Allergies Coded Allergies: Penicillins (Unverified Allergy, Mild, 07/04/09) ampicillin (Unverified Allergy, Mild, RASH, 04/22/09) sulfacetamide (Verified Allergy, Mild, "MADE ME FEEL BAD", 03/19/15) egg (Unverified Allergy, Unknown, 07/19/15) FROM UNCODED ALLERGIES Home Medications Allopurinol 100 Mg Tab, 100 MG PO DAILY, (Reported) Cholecalciferol (Vitamin D3) 5,000 Unit Tablet, 5,000 UNIT PO DAILY, (Reported) Ciprofloxacin HCl 250 Mg Tablet, 250 MG PO BID . Prescribed by: MIESHA PARKS on 11/02/16 2305 Clonazepam 0.5 Mg Tablet, 0.5 MG PO HS, (Reported) NEEDED FOR ANXIETY Diclofenac Sodium 75 Mg Tablet., 75 MG PO BID, (Reported) Garlic 2,000 Mg Capsule, 2,000 MG PO DAILY, (Reported) Mometasone Furoate 17 Gm Jenera, 1 SPRAY NSEACH HS, (Reported) Multivitamin 1 Each Tablet, 2 EACH PO BID, (Reported) Naproxen Sodium 550 Mg Tablet, 550 MG PO BID Prescribed by: FAUSTINO BRYAN on 03/16/16 1078 Omeprazole 20 Mg Capsule.dr, 20 MG PO BID, (Reported) Oxycodone Hcl/Acetaminophen 1 Each Tablet, 1 EACH PO Q6HR PRN PRN for PAIN, ( Reported) Prednisone 20 Mg Tab, 40 MG PO DAILY Prescribed by: NASIR DOMINIQUE on 10/28/16 1304 Prednisone 20 Mg Tab, 20 MG PO BID Prescribed by: MIGUEL MCMILLAN on 02/26/182015 Tamsulosin HCl 0.4 Mg Cap.er.24h, 0.4 MG PO DAILY, (Reported) Tamsulosin HCl 0.4 Mg Cap, 0.4 MG PO DAILY . Prescribed by: MIESHA PARKS on 11/02/16 2305 Trazodone HCl 150 Mg Tablet, 150 MG PO HS, (Reported) Trazodone Hcl 150 Mg Tablet, 150 MG PO HS, (Reported) Patient Home Medication List Home Medication List Reviewed: Yes Review of Systems Constitutional: No chills, No diaphoresis EENTM: No ear discharge, No ear pain Respiratory: No cough, No short of breath Cardiovascular: No chest pain, No edema Gastrointestinal: No abdominal pain, No constipation, No diarrhea, No nausea Genitourinary: No discharge, No dysuria Musculoskeletal: see HPI, joint pain; No joint swelling Skin: No pruritus, No rash Past Qdbonsi-Ajvlkr-Huuzcq Hx Patient Social History Alcohol Use: Denies Use Recreational Drug Use: No Smoking Status: Never a Smoker Recent Foreign Travel: No Contact w/Someone Who Travel: No Recent Infectious Disease Expo: No Recent Hopitalizations: No Immunizations Up To Date Tetanus Booster (TDap): Less than 5yrs Date of Pneumonia Vaccine: Mar 19, 2013 Seasonal Allergies Seasonal Allergies: Yes Past Medical History Surgeries: Yes (HERNIA REPAIR, SINUS, FOOT, BARIATRIC, KNEE SCOPE, CYSTO) Abdominal, Adenoidectomy, Bladder Surgery, Gallbladder, Orthopedic, Renal, Tonsillectomy Respiratory: Yes (USES CPAP) Sleep Apnea Cardiac: Yes (2011-FROM FALL, TOOK COUMADIN FOR 6MONTHS) Deep Vein Thrombosis, High Cholesterol, Hypertension Neurological: No Reproductive Disorders: No Sexually Transmitted Disease: No HIV/AIDS: No Benign Prostatic Hyperpl, Bladder Infection, Kidney Stones Gastrointestinal: Yes (HAS HAD GASTRIC SLEEVE) Gastroesophageal Reflux, Chronic Constipation, Diverticulosis, Polyps, Hiatal Hernia, Irritable Bowel Musculoskeletal: Yes (ARTHRITIS IN KNEES AND BACK) Arthritis, Chronic Back Pain, Gout Endocrine: No Loss of Vision: Bilateral Hearing Impairment: Denies Cancer: No Psychosocial: Yes Sleep Difficulties, Anxiety, Depression Integumentary: Yes (RED PATCHES ON FACE) Blood Disorders: No Adverse Reaction/Blood Tranf: No Family Medical History Arthritis 19 MOTHER Cardiovascular disease 19 MOTHER Colon cancer 19 FATHER 19 MOTHER G8 SISTER Dementia 19 MOTHER Hypertension 19 MOTHER G8 BROTHER Respiratory disorder 19 FATHER (lung ca) Thyroid disease 19 MOTHER No Pertinent Family Hx Physical Exam Vital Signs Vital Signs - First Documented 02/26/18 18:40 Temp 99.4 Pulse 75 Resp 20 B/P (MAP) 188/96 (126) Pulse Ox 96 O2 Delivery Room Air Capillary Refill : Less Than 3 Seconds Height, Weight, BMI Height: 5'10.00" Weight: 330lbs. 6.0oz. 149.219582zg; 38.9 BMI Method:Stated General Appearance: WD/WN, no apparent distress HEENT: PERRL/EOMI, normal ENT inspection, TMs normal, pharynx normal Neck: non-tender, full range of motion, supple Cardiovascular: normal peripheral pulses, regular rate, rhythm Respiratory: chest non-tender, lungs clear, normal breath sounds, no respiratory distress, no accessory muscle use Gastrointestinal: normal bowel sounds, non tender, soft Hips: bilateral hip non-tender, bilateral hip normal inspection, bilateral hip normal range of motion Legs: bilateral leg non-tender, bilateral leg normal inspection, bilateral leg normal range of motion, bilateral leg no evidence of injury Knees: left knee non-tender; bilateral knee normal inspection; left knee normal range of motion; right knee joint effusion (mild), right knee pain (ant) , right knee other (mildly ballotable patella with moderate limitation in range of motion secondary to pain. Able to bear weight with antalgic gait) Ankles: bilateral ankle non-tender, bilateral ankle normal inspection, bilateral ankle normal range of motion Progress/Results/Core Measures Results/Orders Lab Results Laboratory Tests Test 02/26/18 19:30 Range/Units White Blood Count 7.2 4.3-11.0 10^3/uL Red Blood Count 4.28 L 4.35-5.85 10^6/uL Hemoglobin 14.1 13.3-17.7 G/DL Hematocrit 40 40-54 % Mean Corpuscular Volume 94 80-99 FL Mean Corpuscular Hemoglobin 33 25-34 PG Mean Corpuscular Hemoglobin Concent 35 32-36 G/DL Red Cell Distribution Width 12.5 10.0-14.5 % Platelet Count 212 130-400 10^3/uL Mean Platelet Volume 9.5 7.4-10.4 FL Neutrophils (%) (Auto) 74 42-75 % Lymphocytes (%) (Auto) 18 12-44 % Monocytes (%) (Auto) 6 0-12 % Eosinophils (%) (Auto) 2 0-10 % Basophils (%) (Auto) 0 0-10 % Neutrophils # (Auto) 5.3 1.8-7.8 X 10^3 Lymphocytes # (Auto) 1.3 1.0-4.0 X 10^3 Monocytes # (Auto) 0.4 0.0-1.0 X 10^3 Eosinophils # (Auto) 0.2 0.0-0.3 10^3/uL Basophils # (Auto) 0.0 0.0-0.1 10^3/uL Erythrocyte Sedimentation Rate 15 0-30 MM/HR Sodium Level 142 135-145 MMOL/L Potassium Level 3.8 3.6-5.0 MMOL/L Chloride Level 112 H 98-107 MMOL/L Carbon Dioxide Level 18 L 21-32 MMOL/L Anion Gap 12 5-14 MMOL/L Blood Urea Nitrogen 20 H 7-18 MG/DL Creatinine 1.42 H 0.60-1.30 MG/DL Estimat Glomerular Filtration Rate 50 BUN/Creatinine Ratio 14 Glucose Level 114 H 70-105 MG/DL Calcium Level 8.9 8.5-10.1 MG/DL Corrected Calcium 9.2 8.5-10.1 MG/DL Total Bilirubin 0.3 0.1-1.0 MG/DL Aspartate Amino Transf (AST/SGOT) 19 5-34 U/L Alanine Aminotransferase (ALT/SGPT) 9 0-55 U/L Alkaline Phosphatase 76 40-136 U/L C-Reactive Protein High Sensitivity 0.20 0.00-0.50 MG/DL Total Protein 6.8 6.4-8.2 GM/DL Albumin 3.6 3.2-4.5 GM/DL My Orders Orders - MIGUEL MCMILLAN Cbc With Automated Diff (02/26/18 18:49) Comprehensive Metabolic Panel (02/26/18 18:49) Hs C Reactive Protein (02/26/18 18:49) Erythrocyte Sedimentation Rate (02/26/18 18:49) Knee, Right, 3 Views (02/26/18 18:49) Ketorolac Injection (Toradol Injection) (02/26/18 19:00) Methylprednisolone Acetate Inj (Depo-Med (02/26/18 20:30) Medications Given in ED Current Medications Medications Dose Ordered Sig/Analilia Route Start Time Stop Time Status Last Admin Dose Admin Ketorolac Tromethamine 30 mg ONCE ONCE IM 02/26/18 19:00 02/26/18 19:01 DC 02/26/18 19:34 30 MG Vital Signs/I&O 02/26/18 18:40 Temp 99.4 Pulse 75 Resp 20 B/P (MAP) 188/96 (126) Pulse Ox 96 O2 Delivery Room Air Blood Pressure Mean: 126 Progress Progress Note : Time: 20:10 Progress Note Hardware seems to be okay. No evidence of infection on labs or clinical exam plan to give some intramuscular Depo-Medrol and put him on prednisone follow-up with Drs. Baca, repeat surgery outpatient. Diagnostic Imaging Diagonstic Imaging: Xray Plain Films/CT/US/NM/MRI: knee Comments Right knee hardware in good position without evidence of erosions, dislocation, fracture, tumor, lesion or significant joint effusion. Reviewed: Reviewed by Me Departure Impression Primary Impression: Knee pain Qualified Codes: M25.561 - Pain in right knee Additional Impression: Sciatica of right side Disposition: HOME, SELF-CARE Condition: Stable Departure-Patient Inst. Decision time for Depature: 20:12 Referrals: QUETA [place]TMAN (PCP) Primary Care Physician SAIGE BACA MD Patient Instructions: Chondromalacia Patella (DC), Chondromalacia Patella Exercises Add. Discharge Instructions: Continue to use her diclofenac, full tearing gel, Tylenol, oxycodone, heat, Biofreeze or Aspercreme or icy hot or whatever topical creams work for you. Take the prednisone one tablet twice a day for the next 4 days starting tomorrow. Follow up with Drs. Baca if not seeing some improvement by Thursday. All discharge instructions reviewed with patient and/or family. Voiced understanding. Scripts Prednisone (Prednisone) 20 Mg Tab 20 MG PO BID for 5 Days, #10 TAB 0 Refills Prov: MIGUEL MCMILLAN 02/26/18 MIGUEL MCMILLAN Feb 26, 2018 18:52
--- OUTSIDE RECORDS SUMMARY | 2018-02-26 18:52 | XMS REPORT ---
Author Author AYE DE LA VEGA Organization [facility] Address [address] [place] [address] Care Team Providers Care Medical Record Coder Name Role Phone AYE DE LA VEGA Unavailable PROBLEMS Type Condition ICD9-CM Code [id number] Code Onset Dates Condition Status SNOMED Code Problem Pulmonary asbestosis J61 Active 78052851 Problem Left ventricular diastolic dysfunction I51.9 Active 531092503 Problem Chronic gout, unspecified cause, unspecified site [id number].[id number] Active 13008407 Problem Renal cyst, left N28.1 Active 49795294 Problem History of weight loss surgery Z98.84 Active 031322182 Problem Nocturnal hypoxia G47.34 Active 273686937 Problem Obstructive sleep apnea syndrome G47.33 Active 61086052 Problem History of diverticulitis Z87.19 Active 526229267319786 Problem Allergic rhinitis, unspecified allergic rhinitis type J30.9 Active 07829665 Problem Erectile dysfunction due to diseases classified elsewhere N52.1 Active 583223174 Problem Acute right-sided low back pain with right-sided sciatica M54.41 Active 667148078 Problem Psoriasis L40.9 Active 4430281 Problem Essential hypertension I10 Active 26938252 Problem Nephrolithiasis N20.0 Active 21698753 Problem Chronic prescription opiate use Z79.899 Active 163810404 Problem 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 Active 91183552 Problem Benign prostatic hyperplasia, presence of lower urinary tract symptoms unspecified, unspecified morphology N40.0 Active 233376719 Problem Moderate episode of recurrent major depressive disorder F33.1 Active 980834947 Problem Age-related osteoporosis without current pathological fracture M81.0 Active 88974577 Problem Low back pain M54.5 Active 656633615 Problem Anxiety F41.9 Active 15766535 Problem Urge incontinence N39.41 Active 862990806 Problem Hyperlipidemia, unspecified E78.5 Active 56302249 Problem Esophageal stricture K22.2 Active 64987753 Problem Cervicalgia M54.2 Active 9054038220100 Problem Primary insomnia F51.01 Active 987899081 ALLERGIES No Information ENCOUNTERS Encounter Location Date Diagnosis [facility] [id number] [place] [address] 89362- 7809 Oct, [facility] [id number] [place] [address] 13265- 4194 Oct, Anxiety F41.9 [facility] [id number] [place] [address] 69575 -9766 Sep, Left foot pain M79.672 [facility] [id number] [place] [address] 95773- 6538 Sep, [facility] [id number] [place] [address] 67579- 1529 Sep, Anxiety F41.9 [facility] [id number] [place] [address] 10839- 3349 Sep, [facility] [id number] [place] [address] 21596- 1398 Aug, [facility] [id number] [place] [address] 45168- 3324 Aug, [facility] [id number] [place] [address] 77408- 2558 Aug, Anxiety F41.9 [facility] [id number] [place] [address] 02125- 0984 Aug, [facility] [id number] [place] [address] 30896- 1590 Jul, [facility] [id number] [place] [address] 04709- 2738 Jul, Anxiety F41.9 [facility] [id number] [place] [address] 61544- 8101 June, Anxiety F41.9 [facility] [id number] [place] [address] 23771- 1622 June, [facility] [id number] [place] [address] 34292- 5102 June, Low back pain M54.5 ; Chronic prescription opiate use Z79.899 ; Candidal intertrigo B37.2 ; Urge incontinence N39.41 ; Essential hypertension I10 ; Moderate episode of recurrent major depressive disorder F33.1 ; Age-related osteoporosis without current pathological fracture M81.0 and BMI 45.0-49.9, adult Z68.42 [facility] [address] 97226- 6188 June, [facility] [address] 82592- 9781 May, Anxiety F41.9 [facility] [address] 37101- 8612 May, [facility] [address] 06355- 2349 May, [facility] [id number] [place] [address] 30547- 5987 Apr, Anxiety F41.9 [facility] [address] 71016- 8864 Apr, [facility] [id number] [place] [address] 44960- 0505 Apr, Low back pain M54.5 [facility] [id number] [place] [address] 56392- 0218 Apr, [facility] [id number] [place] [address] 19620- 7542 Apr, [facility] [id number] [place] [address] 61425- 5546 Apr, Anxiety F41.9 [facility] [id number] [place] [address] 26483- 7951 Apr, Right groin pain R10.31 [facility] [id number] [place] [address] 78426- 7454 Mar, [facility] [id number] [place] [address] 70396- 7680 Mar, [facility] [id number] [place] [address] 55936- 4333 Mar, Anxiety F41.9 [facility] [id number] [place] [address] 38683- 5700 Mar, Low back pain M54.5 [facility] [id number] [place] [address] 00438- 0414 Mar, Right groin pain R10.31 ; Low back pain M54.5 and BMI 45.0- 49.9, adult Z68.42 [facility] [id number] [place] [address] 69883- 9240 Mar, [facility] [id number] [place] [address] 95580- 9278 Mar, [facility] [id number] [place] [address] 77434- 7954 Mar, [facility] [id number] [place] [address] 48285 -0190 Mar, [facility] [id number] [place] [address] 61638 -8405 Mar, Cough R05 ; Pneumonia of right lower lobe due to infectious organism J18.1 and Abnormal chest x-ray R93.8 [facility] [id number] [place] [address] 05394- 8396 Mar, [facility] [id number] [place] [address] 10003- 2858 Mar, [facility] [id number] [place] [address] 78351- 0594 Jan, Anxiety F41.9 [facility] [id number] [place] [address] 20289- 5264 Jan, [facility] [id number] [place] [address] 37782- 7032 Jan, Moderate episode of recurrent major depressive disorder F33.1 [facility] [id number] [place] [address] 81209- 1076 Jan, Subacromial bursitis of right shoulder joint M75.51 ; Shortness of breath on exertion R06.02 and BMI 45.0-49.9, adult Z68.42 [facility] [id number] [place] [address] 38579- 8519 Dec, Anxiety F41.9 [facility] [id number] [place] [address] 45716- 0623 Dec, [facility] [id number] [place] [address] 30994- 9309 Dec, Low back pain M54.5 [facility] [id number] [place] [address] 89135- 4966 Oct, Low back pain M54.5 [facility] [id number] [place] [address] 24400- 1222 Sep, [facility] [id number] [place] [address] 01311- 8718 Sep, Erectile dysfunction due to diseases classified elsewhere N52.1 [facility] [id number] [place] [address] 23951- 7213 Sep, Erectile dysfunction due to diseases classified elsewhere N52.1 [facility] [id number] [place] [address] 96972- 3268 Sep, [facility] [id number] [place] [address] 98612- 2722 Sep, Erectile dysfunction due to diseases classified elsewhere N52.1 [facility] [id number] [place] [address] 32760- 1788 Sep, Low back pain M54.5 and Anxiety F41.9 [facility] [id number] [place] [address] 77952 -1736 Aug, Acute allergic rhinitis J30.9 [facility] [id number] [place] [address] 88983- 3433 Aug, [facility] [id number] [place] [address] 97046- 3013 Aug, Anxiety F41.9 [facility] [id number] [place] [address] 18196- 8916 Jul, Low back pain M54.5 ; Chronic prescription opiate use Z79.899 and Essential hypertension I10 [facility] [id number] [place] [address] 59049- 3031 Jul, Anxiety F41.9 and Low back pain M54.5 [facility] [id number] [place] [address] 32556- 2160 June, [facility] [id number] [place] [address] 11315- 2051 June, Anxiety F41.9 [facility] [id number] [place] [address] 39076- 5399 May, Low back pain M54.5 [facility] [id number] [place] [address] 50537- 4802 May, [facility] [id number] [place] [address] 15069- 3211 May, Anxiety F41.9 [facility] [id number] [place] [address] 77649- 0754 Apr, [facility] [id number] [place] [address] 60897- 0630 Apr, Low back pain M54.5 [facility] [id number] [place] [address] 73629- 2489 Apr, Moderate episode of recurrent major depressive disorder F33.1 [facility] [id number] [place] [address] 32528- 3903 Apr, Anxiety F41.9 [facility] [id number] [place] [address] 15604- 3440 Apr, Low back pain M54.5 [facility] [address] 13726- 5063 15 Apr, 2016 Elevated alkaline phosphatase level R74.8 [facility] [id number] [place] [address] 90427- 1290 10 Apr, 2016 Alkaline phosphatase elevation R74.8 [facility] [id number] [place] [address] 35380- 6681 06 Apr, 2016 Anxiety F41.9 [facility] [id number] [place] [address] 93012- 0348 Apr, Low back pain M54.5 [facility] [id number] [place] [address] 24017- 4559 Apr, History of weight loss surgery Z98.84 ; Encounter for hepatitis C screening test for low risk patient Z11.59 ; History of herpes genitalis Z86.19 ; Essential hypertension I10 ; Hyperlipidemia, unspecified E78.5 ; Exposure to STD Z20.2 and Benign prostatic hyperplasia, presence of lower urinary tract symptoms unspecified, unspecified morphology N40.0 [facility] [id number] [place] [address] 54394- 4096 Apr, [facility] [id number] [place] [address] 10393- 4318 Mar, [facility] [id number] [place] [address] 39631- 9280 Mar, [facility] [id number] [place] [address] 63708- 5446 Mar, [facility] [address] [place] [address] 02544- 2970 Mar, Acute right-sided low back pain with right-sided sciatica M54.41 [facility] [address] [place] [address] 43102- 4717 Mar, Low back pain M54.5 [facility] [address] [place] [address] 63547 -2080 Mar, Muscle strain of chest wall, initial encounter S29.011A ; Muscle strain of right thigh, initial encounter S76.911A and Acute non- recurrent maxillary sinusitis J01.00 [facility] [id number] [place] [address] 32382- 8893 Mar, Benign prostatic hyperplasia, presence of lower urinary tract symptoms unspecified, unspecified morphology N40.0 [facility] [id number] [place] [address] 29334- 5132 Jan, Low back pain M54.5 [facility] [id number] [place] [address] 77570- 3765 Jan, Low back pain M54.5 ; Essential hypertension I10 ; Hyperlipidemia, unspecified E78.5 ; Anxiety F41.9 ; Moderate episode of recurrent major depressive disorder F33.1 ; Primary insomnia F51.01 ; Exposure to STD Z20.2 ; Encounter for hepatitis C screening test for low risk patient Z11.59 and History of herpes genitalis Z86.19 [facility] [id number] [place] [address] 90640- 6421 Dec, [facility] [id number] [place] [address] 83852- 2483 Nov, [facility] [id number] [place] [address] 36547- 0803 14 Dec, 2015 Anxiety F41.9 ; Cervicalgia M54.2 ; Moderate episode of recurrent major depressive disorder F33.1 and Encounter for immunization Z23 [facility] [id number] [address]- 3540 23 Nov, 2015 [facility] [address] [place] [address], [place] [address]- 8325 22 Nov, 2015 [facility] [address] [address]- 7046 16 Nov, 2015 [facility] [id number] [place] [address] 46441- 7308 Oct, [facility] [id number] [place] [address] 15443- 5350 Sep, [facility] [id number] [place] [address] 89794- 1609 Aug, Low back pain M54.5 ; Anxiety F41.9 ; Primary insomnia F51.01 and Chronic prescription opiate use Z79.899 [facility] [id number] [place] [address] 45705- 4190 Jul, [facility] [address] [address]- 3756 Jul, [facility] [id number] [place] [address] 17070- 3948 Jul, [facility] [address] [address]- 9181 Jul, [facility] [address] [address]- 1211 Jul, [facility] [address] [address]- 0556 June, [facility] [address] [place] [address] 72474- 0154 June, [facility] [address] [address]- 4894 June, [facility] [address] [address]- 1815 June, [facility] [address] [address]- 1508 May, Preoperative cardiovascular examination Z01.810 [facility] [id number] [place] [address] 59919- 2159 May, [facility] [id number] [place] [address] 50981- 1043 Apr, [facility] [id number] [place] [address] 05455- 7659 Apr, Osteoarthritis of right knee M17.9 [facility] [id number] [place] [address] 73014- 6231 Apr, [facility] [id number] [place] [address] 86369- 3923 16 May, 2015 [facility] [id number] [place] [address] 44205- 2711 Apr, [facility] [id number] [place] [address] 13051- 3971 Apr, [facility] [id number] [place] [address] 92218- 9446 08 May, 2015 History of excessive cerumen Z78.9 ; Obstructive sleep apnea syndrome G47.33 ; History of diverticulitis Z87.19 and Nephrolithiasis N20.0 [facility] [id number] [place] [address] 44962- 7081 Apr, [facility] [id number] [place] [address] 51419 -5996 Apr, Abdominal pain R10.9 [facility] [id number] [place] [address] 56901- 2545 10 Apr, 2015 [facility] [id number] [place] [address] 33487- 3044 04 Apr, 2015 Osteoarthritis of right knee M17.9 [facility] [address] [address]- 8368 Mar, [facility] [id number] [place] [address] 03150- 8388 Mar, [facility] [id number] [place] [address] 38354- 2343 14 Mar, 2015 [facility] [id number] [place] [address] 44163- 2484 Mar, [facility] [id number] [place] [address] 57044 -2468 13 Mar, 2015 Pyelonephritis N12 ; Left-sided thoracic back pain M54.6 ; Hematuria, unspecified R31.9 and Kidney stone N20.0 [facility] [id number] [place] [address] 60895- 3864 Mar, History of weight loss surgery Z98.84 [facility] [id number] [place] [address] 67727- 2808 Mar, History of weight loss surgery Z98.84 and Hyperlipidemia, unspecified E78.5 [facility] [id number] [place] [address] 31846- 1519 Mar, Low back pain M54.5 ; Chronic prescription opiate use Z79.899 ; Hyperlipidemia, unspecified E78.5 ; Spasm of back muscles M62.830 and History of weight loss surgery Z98.84 [facility] [address] [place] [address] 82503- 8396 Jan, [facility] [id number] [place] [address] 62230- 7787 Jan, [facility] [id number] [place] [address] 15368- 5413 Jan, [facility] [id number] [place] [address] 11097- 3011 Dec, [facility] [id number] [place] [address] 49513- 3745 Dec, [facility] [id number] [place] [address] 42767- 3919 Dec, [facility] [id number] [place] [address] 637092- 7759 Nov, [facility] [id number] [place] [address] 10297- 1781 Nov, Obstructive sleep apnea syndrome G47.33 and Pharyngoesophageal dysphagia R13.14 [facility] [id number] [place] [address] 06176- 6121 Nov, [facility] [id number] [place] [address] 60393- 5591 Nov, [facility] [id number] [place] [address] 27461- 1633 Nov, [facility] [id number] [place] [address] [id number] Oct, Dental examination V72.2 [facility] [id number] [place] [address] 83007- 2710 Oct, [facility] [id number] [place] [address] 68580- 2570 Oct, [facility] [id number] [place] [address] 93154- 8174 Oct, [facility] [id number] [place] [address] 23856- 3616 Oct, [facility] [id number] [place] [address] 61054- 8235 Oct, BPH (benign prostatic hyperplasia) 600.00 and Urinary frequency 788.41 [facility] [id number] [place] [address] 45115- 5870 Oct, [facility] [id number] [place] [address] 21829- 3312 Oct, [facility] [id number] [place] [address] 23484- 4526 Oct, [facility] [address] 21388- 1376 Sep, Cerumen impaction 380.4 ; Cerumen debris on tympanic membrane 380.4 ; Psoriasis 696.1 and MICKY (secretory otitis media) 381.4 [facility] [id number] [place] [address] [id number] Sep, Dental examination V72.2 [facility] [id number] [place] [address] 09460- 4486 Sep, Fatigue 780.79 ; Irritable bowel syndrome 564.1 ; Overweight 278.02 ; Poor sleep V69.4 ; Shaking spells 781.0 and Broken tooth 873.63 [facility] [id number] [place] [address] 11904- 5566 Sep, [facility] [id number] [place] [address] 63093- 1396 Sep, [facility] [id number] [place] [address] 18366- 0176 Aug, [facility] [id number] [place] [address] 62342- 4466 Jul, [facility] [id number] [place] [address] 95233- 1036 Jul, [facility] [id number] [place] [address] 86585- 9966 Jul, [facility] [id number] [place] [address] 41879- 0158 Jul, [facility] [id number] [place] [address] 79114- 9486 June, Arthritis of knee, right 716.96 [facility] [id number] [place] [address] 01177- 0882 June, [facility] [address] [id number] [place] [address] June, Elevated blood pressure reading without diagnosis of hypertension 796.2 [facility] [address] [id number] [place] [address] June, [facility] [address] [id number] [place] [address] 3350 June, [facility] [address] [id number] [place] [address] 3306 June, [facility] [address] [id number] [place] [address] 1672 June, [facility] [address] [id number] [place] [address]- 8253 May, [facility] [address] [id number] [place] [address] 9638 May, [facility] [address] [id number] [place] [address] 7387 Apr, [facility] [address] [id number] [place] [address]- [address] 30 Apr, 2014 [facility] [address] [id number] [place] [address] 9200 Apr, [facility] [address] [id number] [place] [address]- 3968 Apr, [facility] [address] [id number] [place] [address]- 8315 Apr, [facility] [address] [id number] [place] [address]- 0175 Apr, [facility] [address] [id number] [place] [address]- 0729 Apr, [facility] [address] [id number] [place] [address] Apr, [facility] [place] [facility] [address] [id number] [place] [address]- 3215 Apr, 2014 [facility] [place] [facility] [address] [id number] [place] [address]- 2069 Apr, 2014 [facility] [place] [facility] [address] [id number] [place] [address]- 2822 Apr, 2014 [facility] [place] [facility] [address] [id number] [place] [address]- 0740 Apr, 2014 [facility] [place] [facility] [address] [id number] [place] [address]- 2510 Apr, 2014 [facility] [place] [facility] [address] [id number] [place] [address]- 5872 Apr, 2014 [facility] [place] [facility] [address] [facility] [id number] [place] [address]- 0949 Apr, 2014 [facility] [place] [facility] [address] [id number] [place] [address]- 5377 Apr, 2014 [facility] [place] [facility] [address] [id number] [place] [address]- 3082 Apr, 2014 [facility] [place] [facility] [address] [facility], DEMOLISHED 2001 [id number] [place] [address] 3922 Apr, 2014 [facility] [place] [facility] [address] [facility] 2001 [id number] [place] [address] 3069 Apr, 2014 [facility] [place] [facility] [address] [id number] [place] [address] 2549 Apr, 2014 [facility] [place] [facility] [address] [id number] [place] [address] 9790 Apr, 2014 [facility] [place] [facility] [address] [id number] [place] [address] Apr, 2014 [facility] [place] [facility] [address] [facility] DEM[facility] 2001 [id number] [place] [address] 6839 Apr, 2014 [facility] [place] [facility] [address] [id number] [place] [address]- 0817 Apr, 2014 [facility] [place] [facility] [address] [id number] [place] [address]- 8638 Apr, 2014 [facility] [place] [facility] [address] [id number] [place] [address]- 8786 Apr, 2014 [facility] [place] [facility] [address] [id number] [place] [address]- 9962 Apr, 2014 [facility] [place] [facility] [address] [id number] [place] [address]- 2699 Apr, 2014 [facility] [place] [facility] [address] [id number] [place] [address]- 5716 Apr, 2014 [facility] [place] [facility] [address] [facility] DEM[facility] 2001 [id number] [place] [address]- 3094 Apr, 2014 [facility] [place] [facility] [address] [facility], DEM[facility] 2001 [id number] [place] [address]- 9945 Apr, 2014 [facility] [place] [facility] [address] [facility], DEM[facility] 2001 [id number] [place] [address]- 4247 Apr, 2014 [facility] [place] [facility] [address] [facility], DEM[facility] 2001 [id number] [place] [address]- 3968 Apr, 2014 [facility] [place] [facility] [address] [facility], DEM[facility] 2001 [id number] [place] [address]- 4559 Mar, [facility] [place] [facility] [address] [facility] [address] [id number] [place] [address] 46[address] Mar, [facility] [place] [facility] [address] [facility], DEM[facility] 2001 [id number] [place] [address]- 5090 Mar, [facility] [place] [facility] [address] [facility], DEM[facility] 2001 [id number] [place] [address]- 6885 Mar, [facility] [place] [facility] [address] [facility], [facility] [address] [id number] [place] [address] Mar, [facility] [place] [facility] [address] [facility], [facility] [id number] [place] [address]- 3256 Mar, [facility] [place] [facility] [address] [id number] [place] [address]- 7832 Mar, [facility] [place] [facility] [address] [id number] [place] [address] Mar, [facility] [place] [facility] [address] [id number] [place] [address]- 0976 Mar, [facility] [place] [facility] [address] [id number] [place] [address]- 8150 Mar, [facility] [place] [facility] [address] [id number] [place] [address]- 4668 Jan, [facility] [place] [facility] [address] [id number] [place] [address]- 7407 Jan, [facility] [place] [facility] [address] [id number] [place] [address]- 1170 Jan, [facility] [place] [facility] [address] [id number] [place] [address]- 3658 Jan, [facility] [place] [facility] [address] [id number] [place] [address]- 1220 Jan, [facility] [place] [facility] [address] [id number] [place] [address]- 8554 Jan, [facility] [place] [facility] [address] [id number] [place] [address]- 4889 Jan, [facility] [place] [facility] [address] [id number] [place] [address] 7146 Jan, [facility] [place] [facility] [address] [id number] [place] [address]- 9666 Jan, [facility] [place] [facility] [address] [id number] [place] [address]- 4885 Jan, [facility] [place] [facility] [address] [id number] [place] [address]- 2159 Jan, [facility] [place] [facility] [address] [id number] [place] [address]31 Jan, [facility] [place] [facility] [address] [id number] [place] [address]- 2117 Dec, [facility] [place] [facility] [address] [id number] [place] [address]- 6142 Dec, [facility] [place] [facility] [address] [id number] [place] [address]- 6383 Dec, [facility] [place] [facility] [address] [id number] [place] [address]- 0267 Dec, [facility] [place] [facility] [address] [id number] [place] [address]- 8752 Dec, [facility] [place] [facility] [address] [id number] [place] [address]- 0834 Dec, [facility] [place] [facility] [address] [id number] [place] [address]- 6584 Dec, [facility] [place] [facility] [address] [id number] [place] [address]- 6268 Dec, [facility] [place] [facility] [address] [id number] [place] [address]- 4620 Dec, [facility] [place] [facility] [address] [id number] [place] [address]- 5503 Dec, [facility] [place] [facility] [address] [id number] [place] [address]- 5818 Nov, [facility] [place] [facility] [address] [id number] [place] [address]- 4770 Nov, [facility] [place] [facility] [address] [id number] [place] [address]- 7885 Nov, [facility] [place] [facility] [address] [id number] [place] [address]- 7126 Nov, [facility] [place] [facility] [address] [id number] [place] [address]- 3072 Nov, [facility] [place] [facility] [address] [id number] [place] [address]- 1427 Nov, 2013 [facility] [place] [facility] [address] [id number] [place] [address]- 4774 Nov, [facility] [place] [facility] [address] [id number] [place] [address]- 4063 Nov, [facility] [place] [facility] [address] [id number] [place] [address]- 8977 Nov, [facility] [place] [facility] [address] [id number] [place] [address]- 7955 Nov, [facility] [place] [facility] [address] [id number] [place] [address]- 6254 Nov, [facility] [place] [facility] [address] [id number] [place] [address]- 9336 Nov, [facility] [place] [facility] [address] [id number] [place] [address]- 3516 Nov, [facility] [place] [facility] [address] [id number] [place] [address]- 5799 Nov, [facility] [place] [facility] [address] [id number] [place] [address]- 4645 Nov, [facility] [place] [facility] [address] [id number] [place] [address]- 7525 Nov, [facility] [place] [facility] [address] [id number] [place] [address]- 8916 08 Nov, 2013 [facility] [place] [facility] [address] [id number] [place] [address]- 0355 Nov, [facility] [place] [facility] [address] [id number] [place] [address]- 8517 Nov, [facility] [place] [facility] [address] [id number] [place] [address]- 3286 Nov, [facility] [place] [facility] [address] [id number] [place] [address]- 0701 Oct, 2013 [facility] [place] [facility] [address] [id number] [place] [address]- 0216 26 Oct, 2013 [facility] [place] [facility] [address] [id number] [place] [address]- 1796 Oct, 2013 [facility] [place] [facility] [address] [id number] [place] [address] 2546 Oct, 2013 [facility] [place] [facility] [address] [id number] [place] [address]- 3976 Oct, 2013 [facility] [place] [facility] [address] [id number] [place] [address]- 4796 Oct, 2013 [facility] [place] [facility] [address] [id number] [place] [address]- 6142 Oct, 2013 [facility] [place] [facility] [address] [id number] [place] [address]- 6627 Oct, 2013 [facility] [place] [facility] [address] [id number] [place] [address]- 7413 Oct, 2013 [facility] [place] [facility] [address] [id number] [place] [address]- 7792 Oct, 2013 [facility] [place] [facility] [address] [id number] [place] [address]- 1050 Sep, [facility] [place] [facility] [address] [id number] [place] [address]- 9831 Sep, [facility] [place] [facility] [address] [id number] [place] [address]- 2544 Sep, [facility] [place] [facility] [address] [id number] [place] [address]- 1948 Sep, [facility] [place] [facility] [address] [id number] [place] [address]- 5296 Sep, [facility] [place] [facility] [address] [id number] [place] [address]- 4012 Sep, [facility] [place] [facility] [address] [id number] [facility] [place] [address]- 6348 Sep, [facility] [place] [facility] [address] [id number] [place] [address]- 6589 Sep, [facility] [place] [facility] [address] [id number] [place] [address]- 5700 Sep, [facility] [place] [facility] [address] [id number] [place] [address]- 5573 Sep, [facility] [place] [facility] [address] [id number] [place] [address]- 0959 Sep, [facility] [place] [facility] [address] [id number] [place] [address]- 2295 Sep, [facility] [place] [facility] [address] [id number] [place] [address]- 9106 Sep, [facility] [place] [facility] [address] [id number] [place] [address]- 3149 Sep, [facility] [place] [facility] [address] [id number] [place] [address]- 7395 Sep, [facility] [place] [facility] [address] [id number] [place] [address]- 0965 Sep, [facility] [place] [facility] [address] [id number] [place] [address]- 6370 Sep, [facility] [place] [facility] [address] [id number] [place] [address]- 4264 Sep, [facility] [place] [facility] [address] [id number] [facility] [place] [address]- 6329 Sep, [facility] [place] [facility] [address] [id number] [place] [address]- 1230 Sep, [facility] [place] [facility] [address] [id number] [place] [address]- 8829 Sep, [facility] [place] [facility] [address] [id number] [place] [address]- 2342 Sep, [facility] [place] [facility] [address] [id number] [place] [address]- 3192 Sep, [facility] [place] [facility] [address] [id number] [place] [address]- 6911 Sep, [facility] [place] [facility] [address] [id number] [place] [address]- 4900 Sep, [facility] [place] [facility] [address] [id number] [place] [address]- 3180 Aug, [facility] [place] [facility] [address] [id number] [place] [address]- 0662 Aug, [facility] [place] [facility] [address] [id number] [place] [address]- 0294 Aug, [facility] [place] [facility] [address] [id number] [place] [address]- 6043 Aug, [facility] [place] [facility] [address] [id number] [place] [address]- 7286 Aug, [facility] [place] [facility] [address] [id number] [place] [address]- 5430 Aug, [facility] [place] [facility] [address] [id number] [place] [address]- 9038 Aug, [facility] [place] [facility] [address] [id number] [place] [address]- 9737 Aug, [facility] [place] [facility] [address] [id number] [place] [address]- 3602 Aug, [facility] [place] [facility] [address] [id number] [place] [address]- 2363 Aug, [facility] [place] [facility] [address] [id number] [place] [address]- 2425 Aug, [facility] [place] [facility] [address] [id number] [place] [address]- 5622 Aug, [facility] [place] [facility] [address] [id number] [place] [address]- 3898 Aug, [facility] [address] [id number] [place] [address]- 3614 Jul, [facility] [place] [facility] [address] [id number] [place] [address]- 7505 Jul, [facility] [place] [facility] [address] [id number] [place] [address]- 8590 Jul, [facility] [place] [facility] [address] [id number] [place] [address]- 0129 Jul, [facility] [place] [facility] [address] [id number] [place] [address]- 7482 Jul, [facility] [place] [facility] [address] [id number] [place] [address]- 6146 Jul, [facility] [place] [facility] [address] [id number] [place] [address]- 9436 Jul, [facility] [place] [facility] [address] [id number] [place] [address]- 1889 June, [facility] [place] [facility] [address] [id number] [place] [address]- 9183 June, [facility] [place] [facility] [address] [id number] [place] [address]- 1791 June, [facility] [place] [facility] [address] [id number] [place] [address]- 1302 June, [facility] [place] [facility] [address] [id number] [place] [address]- 1462 May, [facility] [place] [facility] [address] [id number] [place] [address]- 3948 May, [facility] [place] [facility] [address] [id number] [place] [address]- 0640 May, [facility] [place] [facility] [address] [id number] [place] [address]- 4405 May, [facility] [place] [facility] [address] [id number] [place] [address]- 5491 May, [facility] [place] [facility] [address] [id number] [place] [address]- 0432 May, [facility] [place] [facility] [address] [id number] [place] [address]- 5501 May, [facility] [place] [facility] [address] [id number] [place] [address]- 4804 May, [facility] [place] [facility] [address] [id number] [place] [address]- 2765 May, [facility] [place] [facility] [address] [id number] [place] [address]- 6259 May, [facility] [place] [facility] [address] [id number] [place] [address]- 2324 Apr, [facility] [place] [facility] [address] [id number] [place] [address]- 9115 Apr, [facility] [place] [facility] [address] [id number] [place] [address]- 3445 Apr, [facility] [place] [facility] [address] [id number] [place] [address]- 1478 Apr, [facility] [place] [facility] [address] [id number] [place] [address]- 8143 Apr, [facility] [place] [facility] [address] [id number] [place] [address]- 0038 Apr, [facility] [place] [facility] [address] [id number] [place] [address]- 7923 Apr, [facility] [place] [facility] [address] [id number] [place] [address]- 0190 Apr, [facility] [place] [facility] [address] [id number] [place] [address]- 1213 05 Apr, 2013 [facility] [place] [facility] [address] [id number] [place] [address]- 2878 05 Apr, 2013 [facility] [address] [id number] [place] [address]- 4273 Mar, [facility] [place] [facility] [address] [id number] [place] [address]- 4127 Mar, [facility] [address] [id number] [place] [address]- 7364 Mar, [facility] [address] [id number] [place] [address]- 7522 Mar, [facility] [address] [id number] [place] [address]- 6247 Mar, [facility] [address] [id number] [place] [address]- 9732 Mar, [facility] [address] [id number] [place] [address]- 0413 Jan, [facility] [address] [id number] [place] [address]- 2742 Jan, [facility] [address] [id number] [place] [address]- 6984 Jan, [facility] [address] [facility] 2001 [id number] [place] [address]- 6440 Jan, [facility] [place] [facility] [address] [id number] [place] [address]- 6445 Jan, [facility] [place] [facility] [address] [id number] [place] [address]- 5769 Jan, [facility] [place] [facility] [address] [id number] [place] [address]- 1033 Jan, [facility] [place] [facility] [address] [id number] [place] [address]- 5102 Jan, [facility] [place] [facility] [address] [id number] [place] [address]- 6027 Jan, [facility] [place] [facility] [address] [id number] [place] [address]- 5057 Dec, [facility] [place] [facility] [address] [id number] [place] [address]- 0002 Dec, [facility] [place] [facility] [address] [id number] [place] [address]- 3212 Dec, [facility] [place] [facility] [address] [id number] [place] [address]- 4517 Dec, [facility] [address] [id number] [place] [address]- 4912 Dec, [facility] [place] [facility] [address] [id number] [place] [address]- 8021 Dec, [facility] [address] [id number] [place] [address]- 1442 Dec, [facility] [place] [facility] [address] [id number] [place] [address]- 5398 Dec, [facility] [place] [facility] [address] [id number] [place] [address]- 2038 Dec, [facility] [place] [facility] [address] [id number] [place] [address]- 9734 Dec, [facility] [place] [facility] [address] [id number] [place] [address]- 1081 Dec, [facility] [place] [facility] [address] [id number] [place] [address]- 0019 Nov, [facility] [place] [facility] [address] [id number] [place] [address]- 3316 Nov, [facility] [place] [facility] [address] [id number] [place] [address]- 5201 Nov, [facility] [place] [facility] [address] [id number] [place] [address]- 1379 Nov, [facility] [place] [facility] [address] [id number] [place] [address]- 0955 Nov, [facility] [address] [id number] [place] [address]- 6761 Oct, [facility] [place] [facility] [address] [id number] [place] [address]- 8725 Oct, [facility] [place] [facility] [address] [id number] [place] [address]- 7942 Sep, [facility] [place] [facility] [address] [id number] [place] [address]- 0163 Aug, [facility] [place] [facility] [address] [id number] [place] [address]- 9936 Aug, [facility] [place] [facility] [address] [id number] [place] [address]- 0526 Aug, [facility] [address] [id number] [place] [address]- 4527 Aug, [facility] [place] [facility] [address] [id number] [place] [address] Jul, [facility] [place] [facility] [address] [id number] [place] [address] Jul, [facility] [place] [facility] [address] [id number] [place] [address] June, [facility] [place] [facility] [address] [id number] [place] [address] June, [facility] [place] [facility] [address] [id number] [place] [address] June, [facility] [place] [facility] [address] [id number] [place] [address] May, [facility] [place] [facility] [address] [id number] [place] [address]267 May, [facility] [place] [facility] [address] [id number] [place] [address] May, [facility] [place] [facility] [address] [id number] [place] [address] 18 Apr, 2012 [facility] [address] [id number] [place] [address] 18 Apr, 2012 [facility] [place] [facility] [address] [id number] [place] [address] 15 Apr, 2012 [facility] [address] [id number] [place] [address] 14 Apr, 2012 [facility] [address] [id number] [place] [address]- [address] 12 Apr, 2012 [facility] [address] [id number] [place] [address] 1874 27 Apr, 2012 [facility] [address] [facility] [id number] [place] [address]757 Apr, [facility] [address] [id number] [place] [address] Apr, [facility] [address] [id number] [place] [address] Apr, [facility] [address] [id number] [place] [address] Apr, [facility] [address] [facility] [id number] [place] [address]146 Apr, [facility] [address] [id number] [place] [address] Apr, [facility] [place] [facility] [address] [id number] [place] [address] Apr, [facility] [place] [facility] [address] [id number] [place] [address] Mar, [facility] [place] [facility] [address] [id number] [place] [address] 37[address] Mar, [facility] [place] [facility] [address] [id number] [place] [address] Mar, [facility] [address] [id number] [place] [address] 1986 Mar, [facility] [place] [facility] [address] [id number] [place] [address] Mar, [facility] [address] [id number] [place] [address]- [address] Jan, [facility] [place] [facility] [address] [id number] [place] [address] 40[address] Jan, [facility] [address] [id number] [place] [address] Jan, [facility] [place] [facility] [address] [id number] [place] [address]- [address] Jan, [facility] [address] [id number] [place] [address]- [address] 14 Jan, 2012 [facility] [place] [facility] [address] [id number] [place] [address]- 3940 13 Jan, 2012 [facility] [place] [facility] [address] [id number] [place] [address] 13 Jan, 2012 [facility] [place] [facility] [address] [id number] [place] [address]- [address] Jan, [facility] [place] [facility] [address] [id number] [place] [address]- [address] 06 Jan, 2012 [facility] [place] [facility] [address] [id number] [place] [address]- [address] 06 Jan, 2012 [facility] [place] [facility] [address] [id number] [place] [address]- [address] 04 Jan, 2012 [facility] [place] [facility] [address] [id number] [place] [address]- 8286 04 Jan, 2012 [facility] [place] [facility] [address] [id number] [place] [address]- 6533 04 Jan, 2012 [facility] [place] [facility] [address] [id number] [place] [address]- 4183 04 Jan, 2012 [facility] [place] [facility] [address] [id number] [place] [address]- [address]48 26 Jan, 2012 [facility] [place] [facility] [address] [id number] [place] [address]- [address]676 26 Jan, 2012 [facility] [place] [facility] [address] [id number] [place] [address]- 0847 19 Jan, 2012 [facility] [place] [facility] [address] [id number] [place] [address]- 8925 19 Jan, 2012 [facility] [place] [facility] [address] [id number] [place] [address]- 0016 15 Jan, 2012 [facility] [place] [facility] [address] [id number] [place] [address]- 8518 15 Jan, 2012 [facility] [place] [facility] [address] [id number] [place] [address]- 5916 14 Jan, 2012 [facility] [place] [facility] [address] [id number] [place] [address]- 0685 14 Jan, 2012 [facility] [place] [facility] [address] [id number] [place] [address]- 8729 14 Jan, 2012 [facility] [place] [facility] [address] [id number] [place] [address]- 0717 14 Jan, 2012 [facility] [place] [facility] [address] [id number] [place] [address]- 8812 07 Jan, 2012 [facility] [place] [facility] [address] [id number] [place] [address]- 6[address] 07 Jan, 2012 [facility] [place] [facility] [address] [id number] [place] [address]- 4368 16 Dec, 2011 [facility] [place] [facility] [address] [id number] [place] [address]- 69[address] 16 Dec, 2011 [facility] [place] [facility] [address] [id number] [place] [address]- 6531 13 Nov, 2011 [facility] [place] [facility] [address] [id number] [place] [address]- 0151 13 Nov, 2011 [facility] [place] [facility] [address] [id number] [place] [address]- 4446 13 Nov, 2011 [facility] [place] [facility] [address] [id number] [place] [address]- 1073 12 Nov, 2011 [facility] [place] [facility] [address] [id number] [place] [address]- 2007 30 Oct, 2011 [facility] [place] [facility] [address] [id number] [place] [address]- [address] Sep, [facility] [place] [facility] [address] [id number] [place] [address]- 1348 Aug, [facility] [place] [facility] [address] [id number] [place] [address]- 1287 Aug, [facility] [place] [facility] [address] [id number] [place] [address]- 5377 Aug, [facility] [place] [facility] [address] [id number] [place] [address]- 5[address] Aug, [facility] [place] [facility] [address] [id number] [place] [address]- 9499 June, [facility] [place] [facility] [address] [id number] [place] [address]- 1176 June, [facility] [place] [facility] [address] [id number] [place] [address]- 4137 May, [facility] [place] [facility] [address] [id number] [place] [address]- 75[address] Apr, [facility] [place] [facility] [address] [address] [id number] [place] [address] Apr, [facility] [place] [facility] [address] [id number] [place] [address] Apr, [facility] [place] [facility] [address] [id number] [place] [address] Apr, [facility] [address] [id number] [place] [address] Apr, [facility] [place] [facility] [address] [id number] [place] [address] Apr, [facility] [address] [id number] [place] [address] Mar, [facility] [place] [facility] [address] [id number] [place] [address] Mar, [facility] [address] [id number] [place] [address] Mar, [facility] [place] [facility] [address] [id number] [place] [address] Jan, [facility] [address] [id number] [place] [address] Jan, [facility] [place] [facility] [address] [id number] [place] [address] Jan, [facility] [place] [facility] [address] [id number] [place] [address] Jan, [facility] [place] [facility] [address] [id number] [place] [address] Jan, [facility] [place] [facility] [address] [id number] [place] [address] Jan, [facility] [place] [facility] [address] [id number] [place] [address] Jan, [facility] [place] [facility] [address] [id number] [place] [address] Dec, [facility] [place] [facility] [address] [id number] [place] [address] Dec, [facility] [place] [facility] [address] [id number] [place] [address] Nov, [facility] [place] [facility] [address] [id number] [place] [address] 18 Nov, 2010 [facility] [place] [facility] [address] [id number] [place] [address] Nov, [facility] [place] [facility] [address] [id number] [place] [address] Nov, [facility] [place] [facility] [address] [id number] [place] [address] Oct, [facility] [place] [facility] [address] [id number] [place] [address] Sep, [facility] [place] [facility] [address] [id number] [place] [address] Mar, [facility] [place] [facility] [address] [id number] [place] [address] Jan, [facility] [place] [facility] [address] [id number] [place] [address] Dec, [facility] [place] [facility] [address] [id number] [place] [address] Dec, [facility] [place] [facility] [address] [id number] [place] [address] Dec, [facility] [place] [facility] [address] [id number] [place] [address] Dec, [facility] [place] [facility] [address] [id number] [place] [address] Nov, [facility] [place] [facility] [address] [id number] [place] [address] 15 Nov, 2009 [facility] [place] [facility] [address] [id number] [place] [address] 14 Nov, 2009 [facility] [place] [facility] [address] [id number] [place] [address] 14 Nov, 2009 [facility] [place] [facility] [address] [id number] [place] [address] Oct, [facility] [address] [facility] [address] [id number] [address] Jul, [facility] [address] [facility] [address] [id number] [place] [address] June, [facility] [id number] [address] June, [facility] [address] [facility] [address] [id number] [place] [address] Apr, [facility] [address] [facility] [address] [id number] [place] [address] Mar, [facility] [id number] [place] [address] Jan, [facility] [id number] [address] Jan, [facility] [id number] [address] Dec, [facility] [id number] [address] Dec, [facility] [id number] [address] Dec, [facility] [id number] [address] [address] Dec, [facility] [address] [id number] [address] Nov, [facility] [id number] [address] Jul, [facility] [id number] [address] June, IMMUNIZATIONS No Known Immunizations SOCIAL HISTORY Never Assessed REASON FOR VISIT Controlled Med Refill PLAN OF CARE VITAL SIGNS MEDICATIONS Medication Instructions Dosage Frequency Start Date End Date Duration Status Endocet 10-325 MG Orally every 4-6 hours 1 tablet as needed Sep, 28 days Active RESULTS No Results PROCEDURES No Known procedures INSTRUCTIONS MEDICATIONS ADMINISTERED No Known Medications MEDICAL (GENERAL) HISTORY Type Description Date Medical History hypertension Medical History sleep apnea-did not tolerate CPAP Medical History oxygen dependent at [facility] Medical History colonic polyps Medical [...]
--- OUTSIDE RECORDS SUMMARY | 2018-02-26 18:53 | XMS REPORT ---
Author Author [facility] Address [address] [place] [address] Care Team Providers Care Shank Stitcher Name Role Phone GRAHAMELLIOTT HANNAHANY Unavailable PROBLEMS Type Condition ICD9-CM Code WZO98-NA Code Onset Dates Condition Status SNOMED Code Problem Pulmonary asbestosis J61 Active 73008322 Problem Left ventricular diastolic dysfunction I51.9 Active 806215638 Problem Chronic gout, unspecified cause, unspecified site [id number].[id number] Active 80227144 Problem Renal cyst, left N28.1 Active 32285126 Problem History of weight loss surgery Z98.84 Active 289601262 Problem Nocturnal hypoxia G47.34 Active 675812771 Problem Obstructive sleep apnea syndrome G47.33 Active 64705752 Problem History of diverticulitis Z87.19 Active 932695972382178 Problem Allergic rhinitis, unspecified allergic rhinitis type J30.9 Active 27127209 Problem Erectile dysfunction due to diseases classified elsewhere N52.1 Active 309286419 Problem Acute right-sided low back pain with right-sided sciatica M54.41 Active 192008572 Problem Psoriasis L40.9 Active 0999853 Problem Essential hypertension I10 Active 84212668 Problem Nephrolithiasis N20.0 Active 25331412 Problem Chronic prescription opiate use Z79.899 Active 985415134 Problem 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 Active 35124930 Problem Benign prostatic hyperplasia, presence of lower urinary tract symptoms unspecified, unspecified morphology N40.0 Active 242214396 Problem Moderate episode of recurrent major depressive disorder F33.1 Active 794447600 Problem Age-related osteoporosis without current pathological fracture M81.0 Active 26361967 Problem Low back pain M54.5 Active 833793922 Problem Anxiety F41.9 Active 35820069 Problem Urge incontinence N39.41 Active 991362845 Problem Hyperlipidemia, unspecified E78.5 Active 16210375 Problem Esophageal stricture K22.2 Active 24678718 Problem Cervicalgia M54.2 Active 7291682193096 Problem Primary insomnia F51.01 Active 608699643 ALLERGIES No Information ENCOUNTERS Encounter Location Date Diagnosis [facility] [id number] [place] [address] 60780- 3255 Oct, [facility] [id number] [place] [address] 18261- 1440 Oct, Anxiety F41.9 [facility] [id number] [place] [address] 26956 -8778 Sep, Left foot pain M79.672 [facility] [id number] [place] [address] 85227- 7838 Sep, [facility] [id number] [place] [address] 58009- 3070 Sep, Anxiety F41.9 [facility] [id number] [place] [address] 83229- 8112 Sep, [facility] [id number] [place] [address] 61075- 7949 Aug, [facility] [id number] [place] [address] 11211- 7487 Aug, [facility] [id number] [place] [address] 52769- 1336 Aug, Anxiety F41.9 [facility] [id number] [place] [address] 25424- 4628 Aug, [facility] [id number] [place] [address] 63082- 1488 Jul, [facility] [id number] [place] [address] 02251- 8428 Jul, Anxiety F41.9 [facility] [id number] [place] [address] 23847- 2230 June, Anxiety F41.9 [facility] [id number] [place] [address] 40623- 6353 June, [facility] [id number] [place] [address] 83643- 8581 June, Low back pain M54.5 ; Chronic prescription opiate use Z79.899 ; Candidal intertrigo B37.2 ; Urge incontinence N39.41 ; Essential hypertension I10 ; Moderate episode of recurrent major depressive disorder F33.1 ; Age-related osteoporosis without current pathological fracture M81.0 and BMI 45.0-49.9, adult Z68.42 [facility] [id number] [place] [address] 38454- 3257 June, [facility] [address] 92565- 6214 May, Anxiety F41.9 [facility] [id number] [place] [address] 92007- 0929 May, [facility] [id number] [place] [address] 92403- 8318 May, [facility] [id number] [place] [address] 98445- 8028 Apr, Anxiety F41.9 [facility] [id number] [place] [address] 74484- 9768 Apr, [facility] [id number] [place] [address] 73431- 5392 Apr, Low back pain M54.5 [facility] [id number] [place] [address] 72424- 8960 Apr, [facility] [id number] [place] [address] 98257- 8808 Apr, [facility] [id number] [place] [address] 69668- 1877 Apr, Anxiety F41.9 [facility] [id number] [place] [address] 75691- 0686 Apr, Right groin pain R10.31 [facility] [id number] [place] [address] 92174- 6856 Mar, [facility] [id number] [place] [address] 72339- 5115 Mar, [facility] [id number] [place] [address] 48907- 6957 Mar, Anxiety F41.9 [facility] [id number] [place] [address] 75559- 6362 Mar, Low back pain M54.5 [facility] [address] 08550- 0716 Mar, Right groin pain R10.31 ; Low back pain M54.5 and BMI 45.0- 49.9, adult Z68.42 [facility] [id number] [place] [address] 70640- 2716 Mar, [facility] [id number] [place] [address] 24279- 6709 Mar, [facility] [id number] [place] [address] 08228- 6830 Mar, [facility] [id number] [place] [address] 41285 -4548 Mar, [facility] [id number] [place] [address] 75999 -8695 Mar, Cough R05 ; Pneumonia of right lower lobe due to infectious organism J18.1 and Abnormal chest x-ray R93.8 [facility] [id number] [place] [address] 43783- 3069 Mar, [facility] [id number] [place] [address] 89292- 1218 Mar, [facility] [id number] [place] [address] 95553- 6404 Jan, Anxiety F41.9 [facility] [id number] [place] [address] 82346- 4076 Jan, [facility] [id number] [place] [address] 12905- 6914 Jan, Moderate episode of recurrent major depressive disorder F33.1 [facility] [id number] [place] [address] 11810- 1856 Jan, Subacromial bursitis of right shoulder joint M75.51 ; Shortness of breath on exertion R06.02 and BMI 45.0-49.9, adult Z68.42 [facility] [id number] [place] [address] 61514- 8635 Dec, Anxiety F41.9 [facility] [id number] [place] [address] 39075- 8730 Dec, [facility] [id number] [place] [address] 82841- 0497 Dec, Low back pain M54.5 [facility] [id number] [place] [address] 57883- 2755 Oct, Low back pain M54.5 [facility] [id number] [place] [address] 34718- 7799 Sep, [facility] [id number] [place] [address] 36547- 4991 Sep, Erectile dysfunction due to diseases classified elsewhere N52.1 [facility] [address] [address]- 9971 Sep, Erectile dysfunction due to diseases classified elsewhere N52.1 [facility] [id number] [place] [address] 32941- 3307 Sep, [facility] [id number] [place] [address] 32963- 1050 Sep, Erectile dysfunction due to diseases classified elsewhere N52.1 [facility] [id number] [place] [address] 43187- 2854 Sep, Low back pain M54.5 and Anxiety F41.9 [facility] [id number] [place] [address] 90257 -0731 Aug, Acute allergic rhinitis J30.9 [facility] [id number] [place] [address] 19412- 7578 Aug, [facility] [address] 23380- 0004 Aug, Anxiety F41.9 [facility] [id number] [place] [address] 97760- 6138 Jul, Low back pain M54.5 ; Chronic prescription opiate use Z79.899 and Essential hypertension I10 [facility] [id number] [place] [address] 50581- 2978 Jul, Anxiety F41.9 and Low back pain M54.5 [facility] [id number] [place] [address] 87301- 5981 June, [facility] [address] 54238- 2935 June, Anxiety F41.9 [facility] [id number] [place] [address] 12825- 1257 May, Low back pain M54.5 [facility] [id number] [place] [address] 78137- 0880 May, [facility] [id number] [place] [address] 90280- 9354 May, Anxiety F41.9 [facility] [id number] [place] [address] 79114- 4359 Apr, [facility] [id number] [place] [address] 62240- 3062 Apr, Low back pain M54.5 [facility] [address] [place] [address]- 5104 Apr, Moderate episode of recurrent major depressive disorder F33.1 [facility] [id number] [place] [address] 61949- 1287 Apr, Anxiety F41.9 [facility] [id number] [place] [address] 44549- 3154 Apr, Low back pain M54.5 [facility] [id number] [place] [address] 56337- 2090 15 Apr, 2016 Elevated alkaline phosphatase level R74.8 [facility] [address] 62772- 8755 10 Apr, 2016 Alkaline phosphatase elevation R74.8 [facility] [id number] [place] [address] 06520- 5147 06 Apr, 2016 Anxiety F41.9 [facility] [id number] [place] [address] 90010- 4472 Apr, Low back pain M54.5 [facility] [id number] [place] [address] 53758- 5264 Apr, History of weight loss surgery Z98.84 ; Encounter for hepatitis C screening test for low risk patient Z11.59 ; History of herpes genitalis Z86.19 ; Essential hypertension I10 ; Hyperlipidemia, unspecified E78.5 ; Exposure to STD Z20.2 and Benign prostatic hyperplasia, presence of lower urinary tract symptoms unspecified, unspecified morphology N40.0 [facility] [id number] [place] [address] 40247- 8257 Apr, [facility] [id number] [place] [address] 77357- 8624 Mar, [facility] [id number] [place] [address] 61918- 0233 Mar, [facility] [id number] [place] [address] 64186- 6559 Mar, [facility] [id number] [place] [address] 53379- 4349 Mar, Acute right-sided low back pain with right-sided sciatica M54.41 [facility] [id number] [place] [address] 89572- 0284 18 Mar, 2016 Low back pain M54.5 [facility] [id number] [place] [address] 73264 -9619 13 Mar, 2016 Muscle strain of chest wall, initial encounter S29.011A ; Muscle strain of right thigh, initial encounter S76.911A and Acute non- recurrent maxillary sinusitis J01.00 [facility] [id number] [place] [address] 13039- 3985 03 Mar, 2016 Benign prostatic hyperplasia, presence of lower urinary tract symptoms unspecified, unspecified morphology N40.0 [facility] [id number] [place] [address] 08237- 7502 Jan, Low back pain M54.5 [facility] [id number] [place] [address] 90109- 4386 Jan, Low back pain M54.5 ; Essential hypertension I10 ; Hyperlipidemia, unspecified E78.5 ; Anxiety F41.9 ; Moderate episode of recurrent major depressive disorder F33.1 ; Primary insomnia F51.01 ; Exposure to STD Z20.2 ; Encounter for hepatitis C screening test for low risk patient Z11.59 and History of herpes genitalis Z86.19 [facility] [id number] [place] [address] 42157- 9893 Dec, [facility] [id number] [place] [address] 78887- 1928 Nov, [facility] [id number] [place] [address] 16837- 6907 14 Dec, 2015 Anxiety F41.9 ; Cervicalgia M54.2 ; Moderate episode of recurrent major depressive disorder F33.1 and Encounter for immunization Z23 [facility] [address] [address]- 2239 23 Nov, 2015 [facility] [id number] [place] [address], [place] [address]- 0568 22 Nov, 2015 [facility] [id number] [place] [address], [place] [address]- 1554 16 Nov, 2015 [facility] [id number] [place] [address] 93542- 3845 Oct, [facility] [id number] [place] [address] 92462- 1837 Sep, [facility] [id number] [place] [address] 12502- 4939 Aug, Low back pain M54.5 ; Anxiety F41.9 ; Primary insomnia F51.01 and Chronic prescription opiate use Z79.899 [facility] [id number] [place] [address] 18597- 4894 Jul, [facility] [id number] [place] [address] 08489- 3946 Jul, [facility] [id number] [place] [address] 38979- 9613 Jul, [facility] [address] [address]- 1348 Jul, [facility] [address] [address]- 5030 Jul, [facility] [address], [place] [address]- 6708 June, [facility] [id number] [place] [address] 78052- 7460 June, [facility] [address] [address]- 2959 June, [facility] [id number] [place] [address] 89344- 5996 June, [facility] [address], [place] [address]- 4120 May, Preoperative cardiovascular examination Z01.810 [facility] [id number] [place] [address] 55963- 5801 May, [facility] [id number] [place] [address] 11617- 6207 Apr, [facility] [id number] [place] [address] 53674- 9094 Apr, Osteoarthritis of right knee M17.9 [facility] [id number] [place] [address] 66049- 9615 Apr, [facility] [id number] [place] [address] 08817- 2526 16 May, 2015 [facility] [id number] [place] [address] 83154- 8779 Apr, [facility] [id number] [place] [address] 20811- 9448 Apr, [facility] [id number] [place] [address] 37489- 3764 Apr, History of excessive cerumen Z78.9 ; Obstructive sleep apnea syndrome G47.33 ; History of diverticulitis Z87.19 and Nephrolithiasis N20.0 [facility] [id number] [place] [address] 82995- 2170 Apr, [facility] [id number] [place] [address] 03289 -3352 Apr, Abdominal pain R10.9 [facility] [id number] [place] [address] 44768- 5389 10 Apr, 2015 [facility] [address], [place] [address]- 3477 04 Apr, 2015 Osteoarthritis of right knee M17.9 [facility] [id number] [place] [address] 62865- 7987 Mar, [facility] [id number] [place] [address] 87298- 3729 Mar, [facility] [id number] [place] [address] 81962- 3439 14 Mar, 2015 [facility] [id number] [place] [address] 10620- 6864 Mar, [facility] [id number] [place] [address] 50341 -3426 13 Mar, 2015 Pyelonephritis N12 ; Left-sided thoracic back pain M54.6 ; Hematuria, unspecified R31.9 and Kidney stone N20.0 [facility] [id number] [place] [address] 02714- 4965 Mar, History of weight loss surgery Z98.84 [facility] [id number] [place] [address] 62273- 1560 Mar, History of weight loss surgery Z98.84 and Hyperlipidemia, unspecified E78.5 [facility] [id number] [place] [address] 76975- 7260 Mar, Low back pain M54.5 ; Chronic prescription opiate use Z79.899 ; Hyperlipidemia, unspecified E78.5 ; Spasm of back muscles M62.830 and History of weight loss surgery Z98.84 [facility] [id number] [place] [address] 12094- 5579 Jan, [facility] [id number] [place] [address] 99738- 0524 Jan, [facility] [id number] [place] [address] 44685- 7915 Jan, [facility] [id number] [place] [address] 76151- 7474 Dec, [facility] [id number] [place] [address] 49127- 4174 Dec, [facility] [id number] [place] [address] 15616- 0009 Dec, [facility] [id number] [place] [address] 874652- 7271 Nov, [facility] [id number] [place] [address] 40235- 9652 Nov, Obstructive sleep apnea syndrome G47.33 and Pharyngoesophageal dysphagia R13.14 [facility] [id number] [place] [address] 27676- 7865 Nov, [facility] [id number] [place] [address] 97709- 9080 Nov, [facility] [id number] [place] [address] 56746- 1458 Nov, [facility] [id number] [place] [address] [id number] Oct, Dental examination V72.2 [facility] [id number] [place] [address] 41732- 5313 Oct, [facility] [id number] [place] [address] [phone] Oct, [facility] [id number] [place] [address] [phone]- [phone] Oct, [facility] [id number] [place] [address] [phone]- [phone] Oct, [facility] [id number] [place] [address] 44534- [phone] Oct, BPH (benign prostatic hyperplasia) 600.00 and Urinary frequency 788.41 [facility] [id number] [place] [address] [phone]- [phone] Oct, [facility] [id number] [place] [address] [phone]- [phone] Oct, [facility] [id number] [place] [address] [phone]- 7236 Oct, [facility] [id number] [place] [address] [phone]- [phone] Sep, Cerumen impaction 380.4 ; Cerumen debris on tympanic membrane 380.4 ; Psoriasis 696.1 and MICKY (secretory otitis media) 381.4 [facility] [id number] [place] [address] [id number] Sep, Dental examination V72.2 [facility] [id number] [place] [address] 01305- 7676 Sep, Fatigue 780.79 ; Irritable bowel syndrome 564.1 ; Overweight 278.02 ; Poor sleep V69.4 ; Shaking spells 781.0 and Broken tooth 873.63 [facility] [id number] [place] [address] 03439- 9426 Sep, [facility] [id number] [place] [address] 40420- [phone] Sep, [facility] [id number] [place] [address] [phone]- [phone] Aug, [facility] [id number] [place] [address] [phone]- [phone] Jul, [facility] [id number] [place] [address] [phone]- [phone] Jul, [facility] [id number] [place] [address] [phone]- [phone] Jul, [facility] [id number] [place] [address] 98476- 1186 Jul, [facility] [id number] [place] [address] [phone]- 1286 June, Arthritis of knee, right 716.96 [facility] [id number] [place] [address] June, [facility] [address] [id number] [place] [address] June, Elevated blood pressure reading without diagnosis of hypertension 796.2 [facility] [address] [id number] [place] [address] June, [facility] [address] [id number] [place] [address] 39[address] June, [facility] [address] [id number] [place] [address] 18[address] June, [facility] [address] [id number] [place] [address] 37[address] June, [facility] [address] [id number] [place] [address] 2674 May, [facility] [address] [id number] [place] [address] 2213 May, [facility] [address] [id number] [place] [address] 5527 Apr, [facility] [address] [id number] [place] [address] 8195 Apr, [facility] [address] [facility] [id number] [place] [address] 9996 Apr, [facility] [address] [id number] [place] [address] 1236 Apr, [facility] [address] [id number] [place] [address] 5163 Apr, [facility] [address] [id number] [place] [address] Apr, [facility] [address] [id number] [place] [address]- 2017 Apr, [facility] [address] [id number] [place] [address]- 9692 Apr, [facility] [place] [facility] [address] [id number] [place] [address]- 2488 Apr, 2014 [facility] [place] [facility] [address] [id number] [place] [address]- 6104 Apr, 2014 [facility] [place] [facility] [address] [id number] [place] [address]- 9167 Apr, 2014 [facility] [place] [facility] [address] [id number] [place] [address]- 7230 Apr, 2014 [facility] [place] [facility] [address] [id number] [place] [address]- 8720 Apr, 2014 [facility] [place] [facility] [address] [id number] [place] [address]- 8171 Apr, 2014 [facility] [place] [facility] [address] [id number] [place] [address]- 8818 Apr, 2014 [facility] [place] [facility] [address] [id number] [place] [address]- 0762 Apr, 2014 [facility] [place] [facility] [address] [id number] [place] [address]- 7105 Apr, 2014 [facility] [place] [facility] [address] [facility] [id number] [place] [address]- 6757 Apr, 2014 [facility] [place] [facility] [address] [facility] [id number] [place] [address]- 2825 Apr, 2014 [facility] [place] [facility] [address] [id number] [place] [address]- 2545 Apr, 2014 [facility] [place] [facility] [address] [id number] [place] [address]- 7753 Apr, 2014 [facility] [place] [facility] [address] [id number] [place] [address]- 1266 Apr, 2014 [facility] [place] [facility] [address] [facility] [id number] [place] [address]- 1708 Apr, 2014 [facility] [place] [facility] [address] [id number] [place] [address]- 4551 13 Apr, 2014 [facility] [place] [facility] [address] [id number] [place] [address]- 0641 Apr, 2014 [facility] [place] [facility] [address] [id number] [place] [address]- 2046 Apr, 2014 [facility] [place] [facility] [address] [id number] [place] [address]- 6925 Apr, 2014 [facility] [place] [facility] [address] [id number] [place] [address]- 7135 Apr, 2014 [facility] [place] [facility] [address] [id number] [place] [address]- 8756 Apr, 2014 [facility] [place] [facility] [address] [facility] [id number] [place] [address]- 9865 Apr, 2014 [facility] [place] [facility] [address] [facility] [id number] [place] [address]- 7013 Apr, 2014 [facility] [place] [facility] [address] [facility] [id number] [place] [address]- 0524 Apr, 2014 [facility] [place] [facility] [address] [facility] [id number], [place] [address]- 8939 Apr, 2014 [facility] [place] [facility] [address] [facility] [id number], [place] [address]- 5575 Mar, [facility] [place] [facility] [address] [id number], [place] [address] 27[address] Mar, [facility] [place] [facility] [address] [id number] [place] [address]- 9095 Mar, [facility] [place] [facility] [address] [id number] [place] [address]- 3371 Mar, [facility] [place] [facility] [address] [facility] [id number], [place] [address]- 6495 Mar, [facility] [place] [facility] [address] [id number], [place] [address]- 6675 Mar, [facility] [address] [id number] [place] [address]- 0732 Mar, [facility] [place] [facility] [address] [id number] [place] [address]- 9546 Mar, [facility] [place] [facility] [address] [facility] [id number] [place] [address]- 5164 Mar, [facility] [place] [facility] [address] [id number] [place] [address]- 5299 Mar, [facility] [place] [facility] [address] [id number] [place] [address]- 2348 Jan, [facility] [place] [facility] [address] [id number] [place] [address]- 8036 Jan, [facility] [address] [facility] [id number] [place] [address]- 9197 Jan, [facility] [place] [facility] [address] [id number] [place] [address]- 6477 Jan, [facility] [place] [facility] [address] [facility] [id number] [place] [address]- 4624 Jan, [facility] [place] [facility] [address] [facility] [id number] [place] [address]- 5839 Jan, [facility] [place] [facility] [address] [id number] [place] [address]- 3354 Jan, [facility] [place] [facility] [address] [id number], [place] [address]- 1118 Jan, [facility] [place] [facility] [address] [id number] [place] [address]- 9045 Jan, [facility] [place] [facility] [address] [facility] [id number] [place] [address]- 8868 05 Jan, 2014 [facility] [place] [facility] [address] [facility] [id number] [place] [address]- 0075 Jan, [facility] [place] [facility] [address] [id number] [place] [address]- 2945 Jan, [facility] [place] [facility] [address] [id number] [place] [address]- 8837 Dec, [facility] [place] [facility] [address] [id number] [place] [address]- 4818 Dec, [facility] [place] [facility] [address] [id number] [place] [address]- 4895 Dec, [facility] [place] [facility] [address] [id number] [place] [address]- 3668 Dec, [facility] [place] [facility] [address] [id number] [place] [address]- 5898 Dec, [facility] [place] [facility] [address] [id number] [place] [address]- 7203 Dec, [facility] [place] [facility] [address] [id number] [place] [address]- 9895 Dec, [facility] [place] [facility] [address] [id number] [place] [address]- 1435 Dec, [facility] [place] [facility] [address] [id number] [place] [address]- 4392 Dec, [facility] [place] [facility] [address] [id number] [place] [address]- 6352 Dec, [facility] [place] [facility] [address] [id number] [place] [address]- 9357 Nov, [facility] [place] [facility] [address] [id number] [place] [address]- 6480 Nov, [facility] [place] [facility] [address] [id number] [place] [address]- 4079 Nov, [facility] [place] [facility] [address] [id number] [place] [address]- 2655 Nov, [facility] [place] [facility] [address] [id number] [place] [address]- 3760 Nov, [facility] [place] [facility] [address] [id number] [place] [address]- 7526 Nov, [facility] [place] [facility] [address] [id number] [place] [address]- 3861 Nov, [facility] [place] [facility] [address] [id number] [place] [address]- 1215 Nov, [facility] [place] [facility] [address] [id number] [place] [address]- 2288 Nov, [facility] [place] [facility] [address] [id number] [place] [address]- 2359 Nov, [facility] [place] [facility] [address] [id number] [place] [address]- 3709 Nov, [facility] [place] [facility] [address] [id number] [place] [address]- 7773 Nov, [facility] [place] [facility] [address] [id number] [place] [address]- 6353 Nov, [facility] [place] [facility] [address] [id number] [place] [address]- 2702 14 Nov, 2013 [facility] [place] [facility] [address] [id number], [place] [address]- 3971 Nov, [facility] [place] [facility] [address] [id number], [place] [address]- 6600 Nov, [facility] [place] [facility] [address] [id number], [place] [address]- 2075 08 Nov, 2013 [facility] [place] [facility] [address] [id number], [place] [address]- 7371 Nov, [facility] [place] [facility] [address] [id number], [place] [address]- 7790 Nov, [facility] [place] [facility] [address] [id number], [place] [address]- 6178 Nov, [facility] [place] [facility] [address] [id number] [place] [address]- 2038 26 Oct, 2013 [facility] [place] [facility] [address] [id number] [place] [address] 2546 26 Oct, 2013 [facility] [place] [facility] [address] [id number] [place] [address] 2546 Oct, 2013 [facility] [place] [facility] [address] [id number] [place] [address] 2546 19 Oct, 2013 [facility] [place] [facility] [address] [id number] [place] [address] 2546 12 Oct, 2013 [facility] [place] [facility] [address] [id number] [place] [address]- 1536 Oct, 2013 [facility] [place] [facility] [address] [id number] [place] [address] 2546 Oct, 2013 [facility] [place] [facility] [address] [id number] [place] [address]- 2832 Oct, 2013 [facility] [place] [facility] [address] [id number] [place] [address] 2542 08 Oct, 2013 [facility] [place] [facility] [address] [id number] [place] [address] 2547 Oct, 2013 [facility] [place] [facility] [address] [id number] [place] [address]- 2541 Sep, [facility] [place] [facility] [address] [id number] [place] [address] 2542 Sep, [facility] [place] [facility] [address] [id number] [place] [address]- 2541 Sep, [facility] [place] [facility] [address] [id number] [place] [address] 2542 Sep, [facility] [place] [facility] [address] [id number] [place] [address]- 2541 Sep, [facility] [place] [facility] [address] [id number] [place] [address]- 7652 Sep, [facility] [place] [facility] [address] [id number] [place] [address]- 7511 Sep, [facility] [place] [facility] [address] [id number] [place] [address]- 7203 Sep, [facility] [place] [facility] [address] [id number] [place] [address]- 3849 Sep, [facility] [place] [facility] [address] [id number] [place] [address]- 7575 Sep, [facility] [place] [facility] [address] [id number] [place] [address]- 1745 Sep, [facility] [place] [facility] [address] [id number] [place] [address]- 7810 Sep, [facility] [place] [facility] [address] [id number] [place] [address]- 2396 Sep, [facility] [place] [facility] [address] [id number] [place] [address]- 7196 Sep, [facility] [place] [facility] [address] [id number] [place] [address]- 5054 Sep, [facility] [place] [facility] [address] [id number] [place] [address]- 9351 Sep, [facility] [place] [facility] [address] [id number] [place] [address]- 7975 Sep, [facility] [place] [facility] [address] [id number] [place] [address]- 6274 Sep, [facility] [place] [facility] [address] [id number] [place] [address]- 2593 Sep, [facility] [place] [facility] [address] [id number] [place] [address]- 8160 Sep, [facility] [place] [facility] [address] [id number] [place] [address]- 0363 Sep, [facility] [place] [facility] [address] [id number] [place] [address]- 8882 Sep, [facility] [place] [facility] [address] [id number] [place] [address]- 8966 Sep, [facility] [place] [facility] [address] [id number] [place] [address]- 3357 Sep, [facility] [place] [facility] [address] [id number] [place] [address]- 0151 Sep, [facility] [place] [facility] [address] [id number] [place] [address]- 6323 Aug, [facility] [place] [facility] [address] [id number] [place] [address]- 1071 Aug, [facility] [place] [facility] [address] [id number] [place] [address]- 5398 Aug, [facility] [place] [facility] [address] [id number] [place] [address]- 8520 Aug, [facility] [place] [facility] [address] [id number] [place] [address]- 2166 Aug, [facility] [place] [facility] [address] [id number] [place] [address]- 0495 Aug, [facility] [place] [facility] [address] [id number] [place] [address]- 2539 Aug, [facility] [place] [facility] [address] [id number] [place] [address]- 7199 Aug, [facility] [place] [facility] [address] [id number] [place] [address]- 0378 Aug, [facility] [place] [facility] [address] [id number] [place] [address]- 9011 Aug, [facility] [place] [facility] [address] [id number] [place] [address]- 3851 Aug, [facility] [place] [facility] [address] [id number] [place] [address]- 5051 Aug, [facility] [place] [facility] [address] [id number] [place] [address]- 0224 Aug, [facility] [place] [facility] [address] [id number] [place] [address]- 1864 Jul, [facility] [place] [facility] [address] [id number] [place] [address]- 8730 Jul, [facility] [place] [facility] [address] [id number] [place] [address]- 3364 Jul, [facility] [place] [facility] [address] [id number] [place] [address]- 3879 Jul, [facility] [place] [facility] [address] [id number] [place] [address]- 1701 Jul, [facility] [place] [facility] [address] [id number] [place] [address]- 0696 Jul, [facility] [place] [facility] [address] [id number] [place] [address]- 3563 Jul, [facility] [place] [facility] [address] [id number] [place] [address]- 1614 June, [facility] [place] [facility] [address] [id number] [place] [address]- 8057 June, [facility] [place] [facility] [address] [id number] [place] [address]- 6700 June, [facility] [place] [facility] [address] [id number] [place] [address]- 4540 June, [facility] [place] [facility] [address] [id number] [place] [address]- 8746 May, [facility] [place] [facility] [address] [id number] [place] [address]- 8953 May, [facility] [place] [facility] [address] [id number] [place] [address]- 0960 May, [facility] [place] [facility] [address] [id number] [place] [address]- 8812 May, [facility] [place] [facility] [address] [id number] [place] [address]- 4639 May, [facility] [place] [facility] [address] [id number] [place] [address]- 9852 May, [facility] [place] [facility] [address] [id number] [place] [address]- 5667 May, [facility] [place] [facility] [address] [id number] [place] [address]- 6926 May, [facility] [place] [facility] [address] [id number] [place] [address]- 3345 May, [facility] [place] [facility] [address] [id number] [place] [address]- 9374 May, [facility] [place] [facility] [address] [id number] [place] [address]- 5242 Apr, [facility] [place] [facility] [address] [id number] [place] [address]- 9801 Apr, [facility] [place] [facility] [address] [id number] [place] [address]- 9512 Apr, [facility] [place] [facility] [address] [id number] [place] [address]- 4702 Apr, [facility] [place] [facility] [address] [id number] [place] [address]- 9207 Apr, [facility] [place] [facility] [address] [id number] [place] [address]- 1432 Apr, [facility] [place] [facility] [address] [id number] [place] [address]- 9691 Apr, [facility] [place] [facility] [address] [id number] [place] [address]- 6102 Apr, [facility] [place] [facility] [address] [id number] [place] [address]- 7673 05 Apr, 2013 [facility] [place] [facility] [address] [id number] [place] [address]- 6414 Apr, [facility] [address] [id number] [place] [address]- 5436 Mar, [facility] [address] [id number] [place] [address]- 3590 Mar, [facility] [address] [id number] [place] [address]- 6143 Mar, [facility] [address] [id number] [place] [address]- 6289 Mar, [facility] [address] [id number] [place] [address]- 5695 Mar, [facility] [address] [id number] [place] [address]- 1823 Mar, [facility] [address] [id number] [place] [address]- 0142 Jan, [facility] [address] [id number] [place] [address]- 9792 Jan, [facility] [address] [id number] [place] [address]- 0901 Jan, [facility] [address] [facility] [id number] [place] [address]- 7925 Jan, [facility] [address] [id number] [place] [address]- 6494 Jan, [facility] [address] [id number] [place] [address]- 3780 Jan, [facility] [address] [id number] [place] [address]- 2683 Jan, [facility] [address] [id number] [place] [address]- 1576 Jan, [facility] [address] [id number] [place] [address]- 8930 Jan, [facility] [place] [facility] [address] [id number] [place] [address]- 6667 Dec, [facility] [place] [facility] [address] [id number] [place] [address]- 0515 Dec, [facility] [place] [facility] [address] [id number] [place] [address]- 0594 Dec, [facility] [place] [facility] [address] [id number] [place] [address]- 5621 Dec, [facility] [place] [facility] [address] [id number] [place] [address]- 8843 Dec, [facility] [place] [facility] [address] [id number] [place] [address]- 3802 Dec, [facility] [place] [facility] [address] [facility] [id number] [place] [address]- 0262 Dec, [facility] [place] [facility] [address] [id number], [place] [address]- 1971 Dec, [facility] [place] [facility] [address] [id number], [place] [address]- 5750 Dec, [facility] [place] [facility] [address] [facility] [id number], [place] [address]- 7780 Dec, [facility] [place] [facility] [address] [facility] [id number], [place] [address]- 9963 Dec, [facility] [place] [facility] [address] [id number], [place] [address]- 6909 Nov, [facility] [place] [facility] [address] [id number], [place] [address]- 0726 Nov, [facility] [place] [facility] [address] [id number], [place] [address] Nov, [facility] [place] [facility] [address] [id number], [place] [address] Nov, [facility] [place] [facility] [address] [id number], [place] [address] Nov, [facility] [address] [id number] [place] [address] Oct, [facility] [place] [facility] [address] [id number] [place] [address] Oct, [facility] [address] [id number] [place] [address] Sep, [facility] [place] [facility] [address] [id number] [place] [address] Aug, [facility] [address] [id number] [place] [address] Aug, [facility] [address] [id number] [place] [address] Aug, [facility] [address] [id number] [place] [address] Aug, [facility] [place] [facility] [address] [id number] [place] [address] Jul, [facility] [address] [id number] [place] [address] Jul, [facility] [place] [facility] [address] [id number] [place] [address] June, [facility] [place] [facility] [address] [id number] [place] [address] June, [facility] [place] [facility] [address] [id number] [place] [address] June, [facility] [place] [facility] [address] [id number] [place] [address] May, [facility] [place] [facility] [address] [id number] [place] [address] May, [facility] [place] [facility] [address] [id number] [place] [address] May, [facility] [place] [facility] [address] [id number] [place] [address] 18 Apr, 2012 [facility] [place] [facility] [address] [id number] [place] [address] 18 Apr, 2012 [facility] [place] [facility] [address] [id number] [place] [address]- [address] 15 Apr, 2012 [facility] [place] [facility] [address] [id number] [place] [address] 14 Apr, 2012 [facility] [place] [facility] [address] [id number] [place] [address] 12 Apr, 2012 [facility] [place] [facility] [address] [id number] [place] [address] 27 Apr, 2012 [facility] [place] [facility] [address] [facility] [id number] [place] [address]- [address] Apr, [facility] [place] [facility] [address] [id number] [place] [address] Apr, [facility] [place] [facility] [address] [id number] [place] [address] Apr, [facility] [place] [facility] [address] [facility] [id number] [place] [address] Apr, [facility] [place] [facility] [address] [facility] [id number] [place] [address] Apr, [facility] [place] [facility] [address] [id number], [place] [address] Apr, [facility] [place] [facility] [address] [id number] [place] [address] Apr, [facility] [place] [facility] [address] [id number] [place] [address] Mar, [facility] [place] [facility] [address] [id number], [place] [address] Mar, [facility] [place] [facility] [address] [id number], [place] [address] 16 Mar, 2012 [facility] [address] [id number] [place] [address] Mar, [facility] [place] [facility] [address] [id number] [place] [address] Mar, [facility] [address] [id number] [place] [address] Jan, [facility] [address] [id number] [place] [address] Jan, [facility] [address] [id number] [place] [address] Jan, [facility] [address] [id number] [place] [address] Jan, [facility] [address] [id number] [place] [address]- [address] 14 Jan, 2012 [facility] [address] [id number] [place] [address] Jan, [facility] [address] [id number] [place] [address]- [address] 13 Jan, 2012 [facility] [address] [id number] [place] [address] Jan, [facility] [address] [id number] [place] [address] 06 Jan, 2012 [facility] [place] [facility] [address] [id number] [place] [address]- [address] 06 Jan, 2012 [facility] [place] [facility] [address] [id number] [place] [address]- [address] 04 Jan, 2012 [facility] [place] [facility] [address] [id number] [place] [address]- [address] 04 Jan, 2012 [facility] [place] [facility] [address] [id number] [place] [address]- 6087 04 Jan, 2012 [facility] [place] [facility] [address] [id number] [place] [address]- [address] 04 Jan, 2012 [facility] [place] [facility] [address] [id number] [place] [address]- 5[address] 26 Jan, 2012 [facility] [place] [facility] [address] [id number] [place] [address]- 1734 26 Jan, 2012 [facility] [place] [facility] [address] [id number] [place] [address]- [address] Dec, [facility] [place] [facility] [address] [id number] [place] [address]- 97[address] 19 Jan, 2012 [facility] [place] [facility] [address] [id number] [place] [address]- [address] 15 Jan, 2012 [facility] [place] [facility] [address] [id number] [place] [address]- 2967 15 Jan, 2012 [facility] [place] [facility] [address] [id number] [place] [address]- 2410 14 Jan, 2012 [facility] [place] [facility] [address] [id number] [place] [address]- 1083 14 Jan, 2012 [facility] [place] [facility] [address] [id number] [place] [address]- 9694 14 Jan, 2012 [facility] [place] [facility] [address] [facility] [id number] [place] [address]- 9515 14 Jan, 2012 [facility] [place] [facility] [address] [id number] [place] [address]- [address] 07 Jan, 2012 [facility] [place] [facility] [address] [id number] [place] [address]- [address] 07 Jan, 2012 [facility] [place] [facility] [address] [id number] [place] [address]- 1723 16 Dec, 2011 [facility] [place] [facility] [address] [id number] [place] [address]- 4760 16 Dec, 2011 [facility] [place] [facility] [address] [id number] [place] [address]- 4834 13 Nov, 2011 [facility] [place] [facility] [address] [id number] [place] [address]- [address] 13 Nov, 2011 [facility] [place] [facility] [address] [id number] [place] [address]- 5575 13 Nov, 2011 [facility] [place] [facility] [address] [id number] [place] [place] [address] 12 Nov, 2011 [facility] [place] [facility] [address] [id number] [place] [address] Sep, [facility] [place] [facility] [address] [id number] [place] [address] Sep, [facility] [place] [facility] [address] [id number] [place] [address] Aug, [facility] [place] [facility] [address] [id number] [place] [address] Aug, [facility] [place] [facility] [address] [id number] [place] [address] Aug, [facility] [place] [facility] [address] [id number] [place] [address] Aug, [facility] [place] [facility] [address] [id number] [place] [address] June, [facility] [place] [facility] [address] [id number] [place] [address] June, [facility] [place] [facility] [address] [id number] [place] [address] May, [facility] [place] [facility] [address] [id number] [place] [address] Apr, [facility] [place] [facility] [address] [id number] [place] [address] Apr, [facility] [place] [facility] [address] [id number] [place] [address] Apr, [facility] [place] [facility] [address] [id number] [place] [address] Apr, [facility] [address] [id number] [place] [address] Apr, [facility] [place] [facility] [address] [id number] [place] [address] Apr, [facility] [address] [id number] [place] [address] Mar, [facility] [place] [facility] [address] [id number] [place] [address] Mar, [facility] [address] [id number] [place] [address] Mar, [facility] [place] [facility] [address] [id number] [place] [address] Jan, [facility] [address] [id number] [place] [address] Jan, [facility] [place] [facility] [address] [id number] [place] [address] Jan, [facility] [place] [facility] [address] [id number] [place] [address] Jan, [facility] [place] [facility] [address] [id number] [place] [address] Jan, [facility] [place] [facility] [address] [id number] [place] [address] Jan, [facility] [place] [facility] [address] [id number] [place] [address] Jan, [facility] [place] [facility] [address] [id number] [place] [address] Dec, [facility] [place] [facility] [address] [id number] [place] [address] Dec, [facility] [place] [facility] [address] [id number] [place] [address] Nov, [facility] [place] [facility] [address] [id number] [place] [address] 18 Nov, 2010 [facility] [place] [facility] [address] [id number] [place] [address] Nov, [facility] [place] [facility] [address] [id number] [place] [address] Nov, [facility] [place] [facility] [address] [id number] [place] [address] Oct, [facility] [place] [facility] [address] [id number] [place] [address] Sep, [facility] [place] [facility] [address] [id number] [place] [address] Mar, [facility] [place] [facility] [address] [id number] [place] [address] Jan, [facility] [place] [facility] [address] [id number] [place] [address] Dec, [facility] [place] [facility] [address] [id number] [place] [address] Dec, [facility] [place] [facility] [address] [id number] [place] [address] Dec, [facility] [place] [facility] [address] [id number] [place] [address] Dec, [facility] [place] [facility] [address] [id number] [place] [address] Nov, [facility] [place] [facility] [address] [id number] [place] [address] 15 Nov, 2009 [facility] [place] [facility] [address] [id number] [place] [address] 14 Nov, 2009 [facility] [place] [facility] [address] [id number] [place] [address] 14 Nov, 2009 [facility] [place] [facility] [address] [id number], [place] [address] Oct, [facility] [id number] [place] [address] Jul, [facility] [id number], [place] [address] June, [facility] [id number], [place] [address] June, [facility] [id number], [place] [address] Apr, [facility] [id number] [place] [address] Mar, [facility] [id number] [place] [address] Jan, [facility] [id number] [place] [address]- [address] Jan, [facility] [id number], [place] [address] Dec, [facility] [id number] [place] [address]- [address] Dec, [facility] [id number], [place] [address] Dec, [facility] [id number], [place] [address] Dec, [facility] [id number], [place] [address] Nov, [facility] [id number], [place] [address] Jul, [facility] [id number] [address] June, IMMUNIZATIONS No Known Immunizations SOCIAL HISTORY Never Assessed REASON FOR VISIT Phone Call PLAN OF CARE VITAL SIGNS MEDICATIONS Unknown Medications RESULTS No Results PROCEDURES No Known procedures INSTRUCTIONS MEDICATIONS ADMINISTERED No Known Medications MEDICAL (GENERAL) HISTORY Type Description Date Medical History hypertension Medical History sleep apnea-did not tolerate CPAP Medical History oxygen dependent at [facility] Medical History colonic polyps Medical [...] vessels of lower extremity Surgical History colonoscopy ([place]ollye)-polyp x3 removed 2004 Surgical History colonoscopy ([place])-normal [...]
--- OUTSIDE RECORDS SUMMARY | 2018-02-26 18:54 | XMS REPORT ---
Author Author GRAHAM CHRIS [facility] Address [address] [place] [address] Care Team Providers Care Lean Coach Name Role Phone GRAHAMLIBBY HANNAY Unavailable PROBLEMS Type Condition ICD9-CM Code GWK36-LM Code Onset Dates Condition Status SNOMED Code Problem Pulmonary asbestosis J61 Active 63468307 Problem Left ventricular diastolic dysfunction I51.9 Active 767602814 Problem Chronic gout, unspecified cause, unspecified site M1A.9XX0 Active 34535924 Problem Renal cyst, left N28.1 Active 34572118 Problem History of weight loss surgery Z98.84 Active 311222065 Problem Nocturnal hypoxia G47.34 Active 128774289 Problem Obstructive sleep apnea syndrome G47.33 Active 31685722 Problem History of diverticulitis Z87.19 Active 915049022472025 Problem Allergic rhinitis, unspecified allergic rhinitis type J30.9 Active 43100402 Problem Erectile dysfunction due to diseases classified elsewhere N52.1 Active 601192553 Problem Acute right-sided low back pain with right-sided sciatica M54.41 Active 902484293 Problem Psoriasis L40.9 Active 5713408 Problem Essential hypertension I10 Active 35445366 Problem Nephrolithiasis N20.0 Active 71776657 Problem Chronic prescription opiate use Z79.899 Active 703641151 Problem 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 Active 64739187 Problem Benign prostatic hyperplasia, presence of lower urinary tract symptoms unspecified, unspecified morphology N40.0 Active 724809045 Problem Moderate episode of recurrent major depressive disorder F33.1 Active 224802337 Problem Age-related osteoporosis without current pathological fracture M81.0 Active 67724292 Problem Low back pain M54.5 Active 365325898 Problem Anxiety F41.9 Active 40864674 Problem Urge incontinence N39.41 Active 870007017 Problem Hyperlipidemia, unspecified E78.5 Active 09130884 Problem Esophageal stricture K22.2 Active 72013184 Problem Cervicalgia M54.2 Active 4567279470756 Problem Primary insomnia F51.01 Active 948366839 ALLERGIES No Information ENCOUNTERS Encounter Location Date Diagnosis [facility] [id number] [place] [address] 85583- 8717 Oct, [facility] [id number] [place] [address] 16716 -9463 Sep, Left foot pain M79.672 [facility] [address] 35812- 6652 Sep, [facility] [id number] [place] [address] 42452- 7397 Sep, Anxiety F41.9 [facility] [id number] [place] [address] 27874- 8543 Sep, [facility] [id number] [place] [address] 60013- 1549 Aug, [facility] [id number] [place] [address] 39469- 4998 Aug, [facility] [id number] [place] [address] 37923- 0945 Aug, Anxiety F41.9 [facility] [id number] [place] [address] 94847- 5175 Aug, [facility] [id number] [place] [address] 93174- 9258 Jul, [facility] [id number] [place] [address] 60298- 0184 Jul, Anxiety F41.9 [facility] [id number] [place] [address] 80660- 5909 June, Anxiety F41.9 [facility] [id number] [place] [address] 88915- 4344 June, [facility] [id number] [place] [address] 89824- 2519 June, Low back pain M54.5 ; Chronic prescription opiate use Z79.899 ; Candidal intertrigo B37.2 ; Urge incontinence N39.41 ; Essential hypertension I10 ; Moderate episode of recurrent major depressive disorder F33.1 ; Age-related osteoporosis without current pathological fracture M81.0 and BMI 45.0-49.9, adult Z68.42 [facility] [address] 18765- 3890 June, [facility] [address] 16909- 7469 May, Anxiety F41.9 [facility] [address] 23006- 7398 May, [facility] [address] 36093- 4039 May, [facility] [address] 09448- 8473 Apr, Anxiety F41.9 [facility] [address] 99694- 4898 Apr, [facility] [address] 47574- 1668 Apr, Low back pain M54.5 [facility] [address] 76263- 8896 Apr, [facility] [address] 18491- 6229 Apr, [facility] [id number] [place] [address] 27937- 1717 Apr, Anxiety F41.9 [facility] [address] 62036- 9569 Apr, Right groin pain R10.31 [facility] [address] 68742- 6221 Mar, [facility] [id number] [place] [address] 20357- 2966 Mar, [facility] [address] 40243- 5175 Mar, Anxiety F41.9 [facility] [id number] [place] [address] 35037- 7796 Mar, Low back pain M54.5 [facility] [address] 64946- 1125 Mar, Right groin pain R10.31 ; Low back pain M54.5 and BMI 45.0- 49.9, adult Z68.42 [facility] [id number] [place] [address] 41532- 3129 Mar, [facility] [address] 15931- 7302 Mar, [facility] [id number] [place] [address] 91781- 5474 Mar, [facility] [id number] [place] [address] 80885 -5972 Mar, [facility] [id number] [place] [address] 03537 -7430 Mar, Cough R05 ; Pneumonia of right lower lobe due to infectious organism J18.1 and Abnormal chest x-ray R93.8 [facility] [id number] [place] [address] 57300- 2551 Mar, [facility] [id number] [place] [address] 88255- 9130 Mar, [facility] [id number] [place] [address] 35154- 8957 Jan, Anxiety F41.9 [facility] [id number] [place] [address] 87027- 0096 Jan, [facility] [id number] [place] [address] 20902- 3158 Jan, Moderate episode of recurrent major depressive disorder F33.1 [facility] [id number] [place] [address] 84183- 8581 Jan, Subacromial bursitis of right shoulder joint M75.51 ; Shortness of breath on exertion R06.02 and BMI 45.0-49.9, adult Z68.42 [facility] [id number] [place] [address] 49271- 6018 Dec, Anxiety F41.9 [facility] [id number] [place] [address] 90188- 1442 Dec, [facility] [id number] [place] [address] 77434- 0650 Dec, Low back pain M54.5 [facility] [id number] [place] [address] 48646- 8058 Oct, Low back pain M54.5 [facility] [id number] [place] [address] 98133- 7035 Sep, [facility] [id number] [place] [address] 12913- 4835 Sep, Erectile dysfunction due to diseases classified elsewhere N52.1 [facility] [id number] [place] [address] 12472- 0108 Sep, Erectile dysfunction due to diseases classified elsewhere N52.1 [facility] [address] [place] [address] 77406- 7397 Sep, [facility] [id number] [place] [address] 68201- 7940 Sep, Erectile dysfunction due to diseases classified elsewhere N52.1 [facility] [id number] [place] [address] 24278- 6759 Sep, Low back pain M54.5 and Anxiety F41.9 [facility] [id number] [place] [address] 00496 -8309 13 Aug, 2016 Acute allergic rhinitis J30.9 [facility] [address] 72013- 1360 Aug, [facility] [id number] [place] [address] 24789- 4879 Aug, Anxiety F41.9 [facility] [address] 83698- 7768 Jul, Low back pain M54.5 ; Chronic prescription opiate use Z79.899 and Essential hypertension I10 [facility] [address] 64212- 6652 Jul, Anxiety F41.9 and Low back pain M54.5 [facility] [id number] [place] [address] 29303- 0399 June, [facility] [id number] [place] [address] 66618- 9204 June, Anxiety F41.9 [facility] [id number] [place] [address] 65541- 8377 May, Low back pain M54.5 [facility] [id number] [place] [address] 19134- 4825 May, [facility] [id number] [place] [address] 40362- 2590 May, Anxiety F41.9 [facility] [id number] [place] [address] 03278- 4806 Apr, [facility] [id number] [place] [address] 93419- 9608 24 Apr, 2016 Low back pain M54.5 [facility] [id number] [place] [address] 35712- 6211 Apr, Moderate episode of recurrent major depressive disorder F33.1 [facility] [id number] [place] [address] 84238- 8265 Apr, Anxiety F41.9 [facility] [id number] [place] [address] 35936- 4298 Apr, Low back pain M54.5 [facility] [id number] [place] [address] 86972- 0346 Apr, Elevated alkaline phosphatase level R74.8 [facility] [address] 86521- 7300 10 Apr, 2016 Alkaline phosphatase elevation R74.8 [facility] [address] 41971- 1241 Apr, Anxiety F41.9 [facility] [id number] [place] [address] 39443- 9078 Apr, Low back pain M54.5 [facility] [id number] [place] [address] 37986- 9166 Apr, History of weight loss surgery Z98.84 ; Encounter for hepatitis C screening test for low risk patient Z11.59 ; History of herpes genitalis Z86.19 ; Essential hypertension I10 ; Hyperlipidemia, unspecified E78.5 ; Exposure to STD Z20.2 and Benign prostatic hyperplasia, presence of lower urinary tract symptoms unspecified, unspecified morphology N40.0 [facility] [id number] [place] [address] 55118- 9377 Apr, [facility] [id number] [place] [address] 92650- 0659 Mar, [facility] [id number] [place] [address] 15751- 2022 Mar, [facility] [id number] [place] [address] 41587- 2878 Mar, [facility] [id number] [place] [address] 15544- 2994 Mar, Acute right-sided low back pain with right-sided sciatica M54.41 [facility] [address] [address]- 3459 Mar, Low back pain M54.5 [facility] [address] [address] -9027 13 Mar, 2016 Muscle strain of chest wall, initial encounter S29.011A ; Muscle strain of right thigh, initial encounter S76.911A and Acute non- recurrent maxillary sinusitis J01.00 [facility] [address] [place] [address] 34200- 9382 03 Mar, 2016 Benign prostatic hyperplasia, presence of lower urinary tract symptoms unspecified, unspecified morphology N40.0 [facility] [id number] [place] [address] 01512- 4914 Jan, Low back pain M54.5 [facility] [id number] [place] [address] 80821- 0956 Jan, Low back pain M54.5 ; Essential hypertension I10 ; Hyperlipidemia, unspecified E78.5 ; Anxiety F41.9 ; Moderate episode of recurrent major depressive disorder F33.1 ; Primary insomnia F51.01 ; Exposure to STD Z20.2 ; Encounter for hepatitis C screening test for low risk patient Z11.59 and History of herpes genitalis Z86.19 [facility] [address] [address]- 0512 Dec, [facility] [id number] [place] [address] 88398- 1229 Nov, [facility] [id number] [place] [address] 78485- 2615 Nov, Anxiety F41.9 ; Cervicalgia M54.2 ; Moderate episode of recurrent major depressive disorder F33.1 and Encounter for immunization Z23 [facility] [address] [address]- 1821 Oct, [facility] [id number] [address]- 6479 22 Nov, 2015 [facility] [address] [place] [address] 98435- 0217 16 Nov, 2015 [facility] [address] [address]- 2562 Oct, [facility] [id number] [place] [address] 09029- 7346 Sep, [facility] [id number] [place] [address] 91701- 1875 Aug, Low back pain M54.5 ; Anxiety F41.9 ; Primary insomnia F51.01 and Chronic prescription opiate use Z79.899 [facility] [address] [address]- 6689 Jul, [facility] [id number] [place] [address] 38236- 0458 Jul, [facility] [address] [address]- 6074 Jul, [facility] [id number] [place] [address] 32852- 9138 Jul, [facility] [address], [place] [address]- 7387 Jul, [facility] [address] [address]- 2831 June, [facility] [address] [address]- 7388 June, [facility] [address] [address]- 6208 June, [facility] [address] [address]- 1294 June, [facility] [address], [place] [address]- 4357 26 Apr, 2016 Preoperative cardiovascular examination Z01.810 [facility] [address] [address]- 1926 May, [facility] [id number] [place] [address] 05076- 3635 Apr, [facility] [id number] [place] [address] 65516- 3417 Apr, Osteoarthritis of right knee M17.9 [facility] [id number] [place] [address] 70334- 7042 30 May, 2015 [facility] [id number] [place] [address] 07837- 5098 16 May, 2015 [facility] [id number] [place] [address] 83446- 4672 Apr, [facility] [id number] [place] [address] 11943- 1400 Apr, [facility] [id number] [place] [address] 23637- 2956 08 May, 2015 History of excessive cerumen Z78.9 ; Obstructive sleep apnea syndrome G47.33 ; History of diverticulitis Z87.19 and Nephrolithiasis N20.0 [facility] [address] [place] [address] 21016- 1073 Apr, [facility] [id number] [place] [address] 80547 -8444 Apr, Abdominal pain R10.9 [facility] [id number] [place] [address] 66499- 4893 Apr, [facility] [id number] [place] [address] 00341- 7245 Apr, Osteoarthritis of right knee M17.9 [facility] [address] [place] [address] 38609- 0911 Mar, [facility] [address] [place] [address]- 6647 15 Mar, 2015 [facility] [id number] [place] [address] 15279- 9327 14 Mar, 2015 [facility] [id number] [place] [address] 34244- 8588 13 Mar, 2015 [facility] [id number] [place] [address] 22393 -9668 Mar, Pyelonephritis N12 ; Left-sided thoracic back pain M54.6 ; Hematuria, unspecified R31.9 and Kidney stone N20.0 [facility] [id number] [place] [address] 55640- 3288 12 Mar, 2015 History of weight loss surgery Z98.84 [facility] [id number] [place] [address] 54852- 5294 07 Mar, 2015 History of weight loss surgery Z98.84 and Hyperlipidemia, unspecified E78.5 [facility] [id number] [place] [address] 67358- 3119 Mar, Low back pain M54.5 ; Chronic prescription opiate use Z79.899 ; Hyperlipidemia, unspecified E78.5 ; Spasm of back muscles M62.830 and History of weight loss surgery Z98.84 [facility] [address] [place] [address] 43774- 3244 Jan, [facility] [id number] [place] [address] 85882- 3016 Jan, [facility] [id number] [place] [address] 57613- 5451 Jan, [facility] [id number] [place] [address] 85266- 2948 Dec, [facility] [id number] [place] [address] 99563- 1356 Dec, [facility] [id number] [place] [address] 13670- 8186 Dec, [facility] [id number] [place] [address] 81694- 1840 Nov, [facility] [id number] [place] [address] 58781- 3322 Nov, Obstructive sleep apnea syndrome G47.33 and Pharyngoesophageal dysphagia R13.14 [facility] [address] 86744- 7511 Nov, [facility] [id number] [place] [address] 01279- 6639 Nov, [facility] [address] 53089- 0611 Nov, [facility] [address] [id number] 30 Oct, 2014 Dental examination V72.2 [facility] [id number] [place] [address] 99440- 6968 Oct, [facility] [id number] [place] [address] 03717- 1805 Oct, [facility] [id number] [place] [address] 43588- 0060 Oct, [facility] [id number] [place] [address] 32485- 2775 Oct, [facility] [id number] [place] [address] 79851- 4086 Oct, BPH (benign prostatic hyperplasia) 600.00 and Urinary frequency 788.41 [facility] [id number] [place] [address] 57160- 2487 Oct, [facility] [id number] [place] [address] 66403- 6087 Oct, [facility] [id number] [place] [address] 10425- 5614 Oct, [facility] [address] [place] [address] 53350- 5974 Sep, Cerumen impaction 380.4 ; Cerumen debris on tympanic membrane 380.4 ; Psoriasis 696.1 and MICKY (secretory otitis media) 381.4 [facility] [address] [id number] Sep, Dental examination V72.2 [facility] [address] 85021- 9243 Sep, Fatigue 780.79 ; Irritable bowel syndrome 564.1 ; Overweight 278.02 ; Poor sleep V69.4 ; Shaking spells 781.0 and Broken tooth 873.63 [facility] [id number] [place] [address] 60828- 9056 Sep, [facility] [id number] [place] [address] 26688- 0120 Sep, [facility] [id number] [place] [address] 44062- 6466 Aug, [facility] [id number] [place] [address] 53971- 6873 Jul, [facility] [id number] [place] [address] 16997- 4366 Jul, [facility] [id number] [place] [address] 79860- 8127 Jul, [facility] [id number] [place] [address] [id number]- 4852 Jul, [facility] [id number] [place] [address] 02314- 8787 June, Arthritis of knee, right 716.96 [facility] [id number] [place] [address] 76737- 8111 June, [facility] [id number] [place] [address] 50371- 5679 June, Elevated blood pressure reading without diagnosis of hypertension 796.2 [facility] [address] [id number] [place] [address]- 0126 June, [facility] [address] [id number] [place] [address]- 8644 June, [facility] [address] [facility] [id number] [place] [address]- 8354 June, [facility] [address] [id number] [place] [address]- 6363 June, [facility] [address] [id number] [place] [address] May, [facility] [address] [id number] [place] [address] May, [facility] [address] [id number] [address] Apr, [facility] [address] [facility] [id number] [place] [address] Apr, [facility] [address] [facility] [id number] [place] [address] Apr, [facility] [address] [facility] [id number] [place] [address] Apr, [facility] [address] [facility] [id number] [address] Apr, [facility] [address] [id number], [place] [address] Apr, [facility] [address] [id number] [place] [address] Apr, [facility] [address] [facility] [id number] [place] [address] Apr, [facility] [address] [facility] [id number] [place] [address] Apr, [facility] [place] [facility] [address] [id number] [place] [address] Apr, [facility] [place] [facility] [address] [id number] [place] [address] Apr, 2014 [facility] [place] [facility] [address] [facility] [id number] [place] [address] Apr, 2014 [facility] [place] [facility] [address] [facility] [id number] [place] [address] 24 Apr, 2014 [facility] [place] [facility] [address] [id number] [place] [address] Apr, 2014 [facility] [place] [facility] [address] [facility] [id number] [place] [address] Apr, 2014 [facility] [place] [facility] [address] [facility] [id number] [place] [address] Apr, 2014 [facility] [place] [facility] [address] [facility] [id number] [place] [address] Apr, 2014 [facility] [place] [facility] [address] [facility] [id number] [place] [address] Apr, 2014 [facility] [place] [facility] [address] [facility] [id number] [place] [address] Apr, 2014 [facility] [place] [facility] [address] [facility] [id number] [place] [address]44 18 Apr, 2014 [facility] [place] [facility] [address] [facility] [id number] [place] [address] 2549 13 Apr, 2014 [facility] [place] [facility] [address] [facility] [id number] [place] [address] 2541 13 Apr, 2014 [facility] [place] [facility] [address] [facility] [id number] [place] [address] 8573 13 Apr, 2014 [facility] [place] [facility] [address] [facility] [id number] [place] [address] 9833 13 Apr, 2014 [facility] [place] [facility] [address] [facility] [id number] [place] [address] 7633 Apr, 2014 [facility] [place] [facility] [address] [id number] [place] [address]- 1429 Apr, 2014 [facility] [place] [facility] [address] [id number] [place] [address]- 0096 Apr, 2014 [facility] [place] [facility] [address] [id number] [place] [address]- 5046 Apr, 2014 [facility] [place] [facility] [address] [id number] [place] [address]- 8376 Apr, 2014 [facility] [place] [facility] [address] [id number] [place] [address]- 3380 Apr, 2014 [facility] [place] [facility] [address] [facility] [id number] [place] [address]- 7486 Apr, 2014 [facility] [place] [facility] [address] [facility] [id number] [place] [address]- 1436 Apr, 2014 [facility] [place] [facility] [address] [id number] [place] [address]- 0345 Apr, 2014 [facility] [place] [facility] [address] [facility] [id number] [place] [address]- 7853 Mar, [facility] [place] [facility] [address] [facility] [id number] [place] [address]- 8892 Mar, [facility] [place] [facility] [address] [id number] [place] [address] 3622 Mar, [facility] [place] [facility] [address] [id number] [place] [address]- 5325 Mar, [facility] [place] [facility] [address] [id number] [place] [address]- 6120 Mar, [facility] [place] [facility] [address] [id number] [place] [address]- 9293 Mar, [facility] [place] [facility] [address] [id number] [place] [address]- 0986 Mar, [facility] [place] [facility] [address] [id number] [place] [address]- 6939 Mar, [facility] [place] [facility] [address] [id number] [place] [address]- 3151 Mar, [facility] [place] [facility] [address] [id number] [place] [address]- 5802 Mar, [facility] [place] [facility] [address] [id number] [place] [address]- 8389 Jan, [facility] [place] [facility] [address] [id number] [place] [address]- 3945 Jan, [facility] [place] [facility] [address] [id number] [place] [address]- 3842 Jan, [facility] [place] [facility] [address] [id number] [place] [address]- 7716 Jan, [facility] [place] [facility] [address] [id number] [place] [address]- 1991 Jan, [facility] [place] [facility] [address] [id number] [place] [address]- 0283 Jan, [facility] [place] [facility] [address] [id number] [place] [address]- 9089 Jan, [facility] [place] [facility] [address] [id number] [place] [address]- 6150 Jan, [facility] [place] [facility] [address] [id number] [address] 7[address] Jan, [facility] [place] [facility] [address] [id number] [place] [address]- 3618 Jan, [facility] [place] [facility] [address] [id number] [place] [address]- 9498 Jan, [facility] [place] [facility] [address] [id number] [place] [address]- 3645 Jan, [facility] [place] [facility] [address] [id number] [place] [address]- 4681 Dec, [facility] [place] [facility] [address] [id number] [place] [address]- 0923 Dec, [facility] [place] [facility] [address] [id number] [place] [address]- 8981 Dec, [facility] [place] [facility] [address] [id number] [place] [address]- 8973 Dec, [facility] [place] [facility] [address] [id number] [place] [address]- 9192 Dec, [facility] [place] [facility] [address] [id number] [place] [address]- 9893 Dec, [facility] [place] [facility] [address] [id number] [place] [address]- 6874 Dec, [facility] [place] [facility] [address] [id number] [place] [address]- 2014 Dec, [facility] [place] [facility] [address] [id number] [place] [address]- 2690 Dec, [facility] [place] [facility] [address] [id number] [place] [address]- 8436 Dec, [facility] [place] [facility] [address] [facility] [id number] [place] [address]- 1666 Nov, [facility] [place] [facility] [address] [id number] [place] [address]- 1894 Nov, [facility] [place] [facility] [address] [id number] [place] [address]- 8157 Nov, [facility] [place] [facility] [address] [id number] [place] [address]- 7728 Nov, [facility] [place] [facility] [address] [id number] [place] [address]- 1392 Nov, [facility] [place] [facility] [address] [id number] [place] [address]- 5460 Nov, [facility] [place] [facility] [address] [id number] [place] [address]- 9221 Nov, [facility] [place] [facility] [address] [id number] [place] [address]- 6154 Nov, [facility] [place] [facility] [address] [id number] [place] [address]- 9850 Nov, [facility] [place] [facility] [address] [id number] [place] [address]- 4756 Nov, [facility] [place] [facility] [address] [id number] [place] [address]- 9992 Nov, [facility] [place] [facility] [address] [id number] [place] [address]- 9584 Nov, [facility] [place] [facility] [address] [id number] [place] [address]- 3844 Nov, [facility] [place] [facility] [address] [id number] [place] [address]- 1607 Nov, [facility] [place] [facility] [address] [id number] [place] [address]- 0702 Nov, [facility] [place] [facility] [address] [id number] [address]- 4566 Nov, [facility] [place] [facility] [address] [id number], [place] [address]- 2811 Nov, [facility] [place] [facility] [address] [id number], [place] [address]- 1375 Nov, [facility] [place] [facility] [address] [id number] [place] [address]- 4775 Nov, [facility] [place] [facility] [address] [id number] [place] [address]- 1950 Nov, [facility] [place] [facility] [address] [id number], [place] [address]- 4570 Oct, [facility] [place] [facility] [address] [id number], [place] [address]- 4390 Oct, [facility] [place] [facility] [address] [id number] [place] [address]- 5428 Oct, 2013 [facility] [place] [facility] [address] [id number] [place] [address]- 5929 Oct, [facility] [place] [facility] [address] [id number] [place] [address]- 8544 Oct, [facility] [place] [facility] [address] [id number] [place] [address]- 0499 Oct, 2013 [facility] [place] [facility] [address] [id number] [place] [address]- 9967 Oct, [facility] [place] [facility] [address] [id number] [place] [address]- 1033 Oct, [facility] [place] [facility] [address] [id number] [place] [address]- 2615 Oct, [facility] [place] [facility] [address] [id number] [place] [address]- 5981 Oct, [facility] [place] [facility] [address] [id number] [place] [address]- 2778 Sep, [facility] [place] [facility] [address] [id number] [place] [address]- 5364 Sep, [facility] [place] [facility] [address] [id number] [place] [address]- 7249 Sep, [facility] [place] [facility] [address] [id number] [place] [address]- 3114 Sep, [facility] [place] [facility] [address] [id number] [place] [address]- 3404 Sep, [facility] [place] [facility] [address] [id number] [place] [address]- 0450 Sep, [facility] [place] [facility] [address] [id number] [place] [address]- 3002 Sep, [facility] [place] [facility] [address] [id number] [place] [address]- 1904 Sep, [facility] [place] [facility] [address] [id number] [place] [address]- 6912 Sep, [facility] [place] [facility] [address] [id number] [place] [address]- 1097 Sep, [facility] [place] [facility] [address] [id number] [place] [address]- 6703 Sep, [facility] [place] [facility] [address] [id number] [place] [address]- 9874 Sep, [facility] [place] [facility] [address] [id number] [place] [address]- 3190 Sep, [facility] [place] [facility] [address] [id number] [place] [address]- 8400 Sep, [facility] [place] [facility] [address] [id number] [place] [address]- 7365 Sep, [facility] [place] [facility] [address] [id number] [place] [address]- 3197 Sep, [facility] [place] [facility] [address] [id number] [place] [address]- 9191 Sep, [facility] [place] [facility] [address] [id number] [place] [address]- 7411 Sep, [facility] [place] [facility] [address] [id number] [place] [address]- 8602 Sep, [facility] [place] [facility] [address] [id number] [place] [address]- 0778 Sep, [facility] [place] [facility] [address] [id number] [place] [address]- 4745 Sep, [facility] [place] [facility] [address] [id number] [place] [address]- 3947 Sep, [facility] [place] [facility] [address] [id number] [place] [address]- 7918 Sep, [facility] [place] [facility] [address] [id number] [place] [address]- 5602 Sep, [facility] [place] [facility] [address] [id number] [place] [address]- 4616 Sep, [facility] [place] [facility] [address] [id number] [place] [address]- 3055 Aug, [facility] [place] [facility] [address] [id number] [place] [address]- 0350 Aug, [facility] [place] [facility] [address] [id number] [place] [address]- 5803 Aug, [facility] [place] [facility] [address] [id number] [place] [address]- 7077 Aug, [facility] [place] [facility] [address] [id number] [place] [address]- 7418 Aug, [facility] [place] [facility] [address] [id number] [place] [address]- 7776 Aug, [facility] [place] [facility] [address] [id number] [place] [address]- 4917 Aug, [facility] [place] [facility] [address] [id number] [place] [address]- 4682 Aug, [facility] [place] [facility] [address] [id number] [place] [address]- 4409 Aug, [facility] [place] [facility] [address] [id number] [place] [address]- 9651 Aug, [facility] [place] [facility] [address] [id number] [place] [address]- 2269 Aug, [facility] [place] [facility] [address] [id number] [place] [address]- 9777 Aug, [facility] [place] [facility] [address] [id number] [place] [address]- 9215 Aug, [facility] [place] [facility] [address] [id number] [place] [address]- 6523 Jul, [facility] [place] [facility] [address] [id number] [place] [address]- 4394 Jul, [facility] [place] [facility] [address] [id number] [place] [address]- 0654 Jul, [facility] [place] [facility] [address] [id number] [place] [address]- 8669 Jul, [facility] [place] [facility] [address] [id number] [place] [address]- 7175 Jul, [facility] [place] [facility] [address] [id number] [place] [address]- 2897 Jul, [facility] [place] [facility] [address] [id number] [place] [address]- 7739 Jul, [facility] [place] [facility] [address] [id number] [place] [address]- 4348 June, [facility] [place] [facility] [address] [id number] [place] [address]- 4749 June, [facility] [place] [facility] [address] [id number] [place] [address]- 8006 June, [facility] [place] [facility] [address] [id number] [place] [address]- 0970 June, [facility] [place] [facility] [address] [id number] [place] [address]- 7234 May, [facility] [place] [facility] [address] [id number] [place] [address]- 8534 May, [facility] [place] [facility] [address] [id number] [place] [address]- 6264 May, [facility] [place] [facility] [address] [id number] [place] [address]- 8008 May, [facility] [place] [facility] [address] [id number] [place] [address]- 6755 May, [facility] [place] [facility] [address] [id number] [place] [address]- 3447 May, [facility] [place] [facility] [address] [id number] [place] [address]- 9334 May, [facility] [place] [facility] [address] [id number] [place] [address]- 5732 May, [facility] [place] [facility] [address] [id number] [place] [address]- 3132 May, [facility] [place] [facility] [address] [id number] [place] [address]- 0244 May, [facility] [place] [facility] [address] [id number] [place] [address]- 1626 Apr, [facility] [place] [facility] [address] [id number] [place] [address]- 7064 Apr, [facility] [place] [facility] [address] [id number] [place] [address]- 4884 Apr, [facility] [place] [facility] [address] [id number] [place] [address]- 1123 Apr, [facility] [place] [facility] [address] [id number] [place] [address]- 3414 Apr, [facility] [place] [facility] [address] [id number] [place] [address]- 0152 Apr, [facility] [place] [facility] [address] [id number] [place] [address]- 0998 Apr, [facility] [place] [facility] [address] [id number] [place] [address]- 3731 Apr, [facility] [place] [facility] [address] [id number] [place] [address]- 1417 Apr, [facility] [place] [facility] [address] [id number] [place] [address]- 7179 Apr, [facility] [place] [facility] [address] [id number] [place] [address]- 4327 Mar, [facility] [address] [id number] [place] [address]- 9136 Mar, [facility] [place] [facility] [address] [id number] [place] [address]- 8566 Mar, [facility] [place] [facility] [address] [id number] [place] [address]- 7277 Mar, [facility] [place] [facility] [address] [id number] [place] [address]- 8586 Mar, [facility] [place] [facility] [address] [id number] [place] [address]- 7731 Mar, [facility] [place] [facility] [address] [id number] [place] [address]- 7392 Jan, [facility] [address] [id number] [place] [address]- 3229 Jan, [facility] [place] [facility] [address] [id number] [place] [address]- 6050 Jan, [facility] [place] [facility] [address] [id number] [place] [address]- 6173 Jan, [facility] [place] [facility] [address] [facility] [id number] [place] [address]- 6383 Jan, [facility] [place] [facility] [address] [id number] [place] [address]- 7914 Jan, [facility] [place] [facility] [address] [id number] [place] [address]- 8200 Jan, [facility] [place] [facility] [address] [id number] [place] [address]- 5011 Jan, [facility] [place] [facility] [address] [id number] [place] [address]- 0494 Jan, [facility] [place] [facility] [address] [id number] [place] [address]- 9991 Dec, [facility] [place] [facility] [address] [id number] [place] [address]- 0144 Dec, [facility] [place] [facility] [address] [id number] [place] [address]- 6794 Dec, [facility] [place] [facility] [address] [id number] [place] [address]- 2519 Dec, [facility] [place] [facility] [address] [id number] [place] [address]- 5840 Dec, [facility] [place] [facility] [address] [id number] [place] [address]- 8479 Dec, [facility] [place] [facility] [address] [id number] [place] [address]- 2818 Dec, [facility] [place] [facility] [address] [id number] [place] [address]- 5635 Dec, [facility] [place] [facility] [address] [id number] [place] [address]- 9575 Dec, [facility] [place] [facility] [address] [id number] [place] [address]- 9509 Dec, [facility] [place] [facility] [address] [id number] [place] [address]- 0727 Dec, [facility] [place] [facility] [address] [id number] [place] [address]- 1528 Nov, [facility] [place] [facility] [address] [id number] [place] [address]- 1366 Nov, [facility] [place] [facility] [address] [id number] [place] [address]- 5201 Nov, [facility] [place] [facility] [address] [id number] [place] [address]- 2476 Nov, [facility] [place] [facility] [address] [id number] [place] [address]- 0371 Nov, [facility] [place] [facility] [address] [id number] [place] [address]- 3692 Oct, [facility] [address] [id number] [place] [address]- 0294 Oct, [facility] [place] [facility] [address] [id number] [place] [address]- 9986 Sep, [facility] [place] [facility] [address] [id number] [place] [address]- 2282 Aug, [facility] [place] [facility] [address] [id number] [place] [address]- 4834 Aug, [facility] [address] [id number] [place] [address]- 0962 Aug, [facility] [place] [facility] [address] [id number] [place] [address]- 2596 Aug, [facility] [place] [facility] [address] [id number] [place] [address]- 8628 Jul, [facility] [place] [facility] [address] [id number] [place] [address]- 5510 Jul, [facility] [place] [facility] [address] [id number] [place] [address]- 8656 June, [facility] [place] [facility] [address] [id number] [place] [address]- 1566 June, [facility] [place] [facility] [address] [id number] [place] [address] June, [facility] [place] [facility] [address] [id number] [place] [address] May, [facility] [place] [facility] [address] [id number] [place] [address] May, [facility] [place] [facility] [address] [id number] [place] [address] May, [facility] [place] [facility] [address] [id number] [place] [address] Apr, [facility] [place] [facility] [address] [id number] [place] [address] 18 Apr, 2012 [facility] [address] [id number] [place] [address] 15 Apr, 2012 [facility] [place] [facility] [address] [id number] [place] [address]46 14 Apr, 2012 [facility] [place] [facility] [address] [id number] [place] [address] 12 Apr, 2012 [facility] [place] [facility] [address] [id number] [place] [address]45 27 Apr, 2012 [facility] [place] [facility] [address] [id number] [place] [address] Apr, [facility] [place] [facility] [address] [id number] [place] [address] Apr, [facility] [place] [facility] [address] [id number] [place] [address] Apr, [facility] [place] [facility] [address] [id number] [place] [address] 20 Apr, 2012 [facility] [place] [facility] [address] [id number] [place] [address] 19 Apr, 2012 [facility] [facility] [address] [facility] [id number] [place] [address] Apr, [facility] [place] [facility] [address] [id number] [place] [address] 07 Apr, 2012 [facility] [place] [facility] [address] [id number] [place] [address] Mar, [facility] [place] [facility] [address] [id number] [place] [address] 254 23 Mar, 2012 [facility] [place] [facility] [address] [id number] [place] [address]- [address] 16 Mar, 2012 [facility] [place] [facility] [address] [id number] [place] [address] Mar, [facility] [address] [id number] [place] [address] Mar, [facility] [place] [facility] [address] [id number] [place] [address] Jan, [facility] [place] [facility] [address] [id number] [place] [address] Jan, [facility] [place] [facility] [address] [id number] [place] [address] Jan, [facility] [place] [facility] [address] [id number] [place] [address] Jan, [facility] [place] [facility] [address] [id number] [place] [address] 14 Jan, 2012 [facility] [place] [facility] [address] [id number] [place] [address] Jan, [facility] [place] [facility] [address] [id number] [place] [address] Jan, [facility] [place] [facility] [address] [id number] [place] [address] Jan, [facility] [place] [facility] [address] [id number] [place] [address] Jan, [facility] [place] [facility] [address] [id number] [place] [address] Jan, [facility] [place] [facility] [address] [id number], [place] [address] 04 Jan, 2012 [facility] [place] [facility] [address] [id number] [place] [address] Jan, [facility] [place] [facility] [address] [id number] [place] [address] Jan, [facility] [place] [facility] [address] [id number] [place] [address] Jan, [facility] [place] [facility] [address] [id number] [place] [address]- [address] 26 Jan, 2012 [facility] [place] [facility] [address] [id number] [place] [address] 26 Jan, 2012 [facility] [place] [facility] [address] [id number] [place] [address]- [address]85 19 Jan, 2012 [facility] [place] [facility] [address] [id number] [place] [address] 19 Jan, 2012 [facility] [place] [facility] [address] [id number] [place] [address] 15 Jan, 2012 [facility] [place] [facility] [address] [id number] [place] [address] 15 Jan, 2012 [facility] [place] [facility] [address] [id number] [place] [address]- [address] 14 Jan, 2012 [facility] [place] [facility] [address] [id number] [place] [address]- [address] 14 Jan, 2012 [facility] [place] [facility] [address] [id number] [place] [address] 14 Jan, 2012 [facility] [place] [facility] [address] [id number] [place] [address]- 120[address] 14 Jan, 2012 [facility] [place] [facility] [address] [id number] [place] [address]- [address] 07 Jan, 2012 [facility] [place] [facility] [address] [id number] [place] [address]- 1317 07 Jan, 2012 [facility] [place] [facility] [address] [id number], [place] [address] 16 Dec, 2011 [facility] [place] [facility] [address] [id number] [place] [address]- 4927 16 Dec, 2011 [facility] [place] [facility] [address] [id number] [place] [address]- [address] 13 Nov, 2011 [facility] [place] [facility] [address] [id number] [place] [address]- [address]67 13 Nov, 2011 [facility] [place] [facility] [address] [id number] [place] [address]- [address] 13 Nov, 2011 [facility] [place] [facility] [address] [id number] [place] [address] 12 Nov, 2011 [facility] [place] [facility] [address] [id number] [place] [address] Sep, [facility] [place] [facility] [address] [id number] [place] [address] Sep, [facility] [place] [facility] [address] [id number] [place] [address]- [address] Aug, [facility] [place] [facility] [address] [id number] [place] [address]- [address] Aug, [facility] [place] [facility] [address] [id number] [place] [address]- [address] Aug, [facility] [place] [facility] [address] [id number] [place] [address]- [address] Aug, [facility] [place] [facility] [address] [id number] [place] [address]- [address] June, [facility] [place] [facility] [address] [id number] [place] [address]- [address] June, [facility] [address] [id number] [place] [address]- [address] May, [facility] [place] [facility] [address] [id number] [place] [address]- [address] Apr, [facility] [place] [facility] [address] [id number] [place] [address]- [address] Apr, [facility] [place] [facility] [address] [id number] [place] [address]- 8616 Apr, [facility] [place] [facility] [address] [id number] [place] [address]- [address]46 Apr, [facility] [place] [facility] [address] [id number], [place] [address] Apr, [facility] [address] [id number] [place] [address]- 408[address] Apr, [facility] [place] [facility] [address] [id number] [place] [address]- [address] Mar, [facility] [address] [facility] [id number] [place] [address]- [address] Mar, [facility] [place] [facility] [address] [id number] [place] [place] [address] Mar, [facility] [address] [facility] [id number] [place] [address], [place] [address] 2007 Jan, [facility] [place] [facility] [address] [facility] [id number] [place] [address] Jan, [facility] [address] [facility] [id number] [place] [address] Jan, [facility] [place] [facility] [address] [facility] [id number] [place] [address] Jan, [facility] [address] [facility] [id number] [place] [address] Jan, [facility] [place] [facility] [address] [facility] [id number] [place] [address] Jan, [facility] [address] [facility] [id number] [place] [address] Jan, [facility] [place] [facility] [address] [facility] [id number] [address] Dec, [facility] [place] [facility] [address] [id number] [address] Dec, [facility] [place] [facility] [address] [facility] [id number] [address] Nov, [facility] [place] [facility] [address] [facility] [id number] [address] Nov, [facility] [place] [facility] [address] [id number] [place] 12 Nov, 2010 [facility] [place] [facility] [address] [id number] [place] [address] 12 Nov, 2010 [facility] [place] [facility] [address] [id number] [place] [address] Oct, [facility] [place] [facility] [address] [id number] [place] [address] Sep, [facility] [place] [facility] [address] [id number] [place] [address] Mar, [facility] [place] [facility] [address] [id number] [place] [address] Jan, [facility] [place] [facility] [address] [id number] [place] [address] Dec, [facility] [place] [facility] [address] [id number] [place] [address] Dec, [facility] [place] [facility] [address] [id number] [place] [address]- [address]85 Dec, [facility] [place] [facility] [address] [id number] [place] [address]- [address] Dec, [facility] [place] [facility] [address] [id number] [place] [address]- [address] 26 Nov, 2009 [facility] [place] [facility] [address] [id number] [place] [address]- [address] 15 Nov, 2009 [facility] [place] [facility] [address] [id number] [place] [address]- [address] 14 Nov, 2009 [facility] [place] [facility] [address] [id number] [place] [address] 14 Nov, 2009 [facility] [place] [facility] [address] [id number] [place] [address] 13 Oct, 2009 [facility] [place] [facility] [address] [id number] [place] [address] [address] Jul, [facility] [address] [id number] [address] June, [facility] [id number] [address] June, [facility] [id number] [address] Apr, [facility] [id number] [place] [address] Mar, [facility] [id number] [address] Jan, [facility] [id number] [place] [address] Jan, [facility] [id number] [address] Dec, [facility] [id number], [place] [address] Dec, [facility] [id number], [place] [address] Dec, [facility] [id number], [place] [address] Dec, [facility] [id number] [address] Nov, [facility] [id number] [address] Jul, [facility] [address] [id number], [place] [address] June, IMMUNIZATIONS No Known Immunizations SOCIAL HISTORY Never Assessed REASON FOR VISIT Gout PLAN OF CARE VITAL SIGNS MEDICATIONS Medication Instructions Dosage Frequency Start Date End Date Duration Status PredniSONE 10 mg 4 tablets( 4omg) daily x 2 days, 3 tablets x 2 days, 2 tablets x 2 days and 1 tablet x 2 days Aug, Aug, 8 days Active RESULTS No Results PROCEDURES No Known procedures INSTRUCTIONS MEDICATIONS ADMINISTERED No Known Medications MEDICAL (GENERAL) HISTORY Type Description Date Medical History hypertension Medical History sleep apnea-did not tolerate CPAP Medical History oxygen dependent at [facility] Medical History colonic polyps Medical History hyperlipidemia [...]
--- OUTSIDE RECORDS SUMMARY | 2018-02-26 18:55 | XMS REPORT ---
Author Author GRAHAM CHRIS [facility] Address [address] [place] [address] Care Team Providers Care Theology Professor Name Role Phone GRAHAMLIBBY HANNAY Unavailable PROBLEMS Type Condition ICD9-CM Code TAJ78-DQ Code Onset Dates Condition Status SNOMED Code Problem Pulmonary asbestosis J61 Active 02763659 Problem Left ventricular diastolic dysfunction I51.9 Active 614961041 Problem Chronic gout, unspecified cause, unspecified site M1A.[id number] Active 68746181 Problem Renal cyst, left N28.1 Active 11089563 Problem History of weight loss surgery Z98.84 Active 056785377 Problem Nocturnal hypoxia G47.34 Active 023485622 Problem Obstructive sleep apnea syndrome G47.33 Active 92271245 Problem History of diverticulitis Z87.19 Active 878127956957288 Problem Allergic rhinitis, unspecified allergic rhinitis type J30.9 Active 52703356 Problem Erectile dysfunction due to diseases classified elsewhere N52.1 Active 224586309 Problem Acute right-sided low back pain with right-sided sciatica M54.41 Active 686563883 Problem Psoriasis L40.9 Active 4157670 Problem Essential hypertension I10 Active 33038736 Problem Nephrolithiasis N20.0 Active 85068336 Problem Chronic prescription opiate use Z79.899 Active 613478949 Problem 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 Active 42741564 Problem Benign prostatic hyperplasia, presence of lower urinary tract symptoms unspecified, unspecified morphology N40.0 Active 441343378 Problem Moderate episode of recurrent major depressive disorder F33.1 Active 442562704 Problem Age-related osteoporosis without current pathological fracture M81.0 Active 21413298 Problem Low back pain M54.5 Active 648014084 Problem Anxiety F41.9 Active 29088382 Problem Urge incontinence N39.41 Active 948776635 Problem Hyperlipidemia, unspecified E78.5 Active 15913337 Problem Esophageal stricture K22.2 Active 44713134 Problem Cervicalgia M54.2 Active 3150725153649 Problem Primary insomnia F51.01 Active 291743215 ALLERGIES No Information ENCOUNTERS Encounter Location Date Diagnosis [facility] [id number] [place] [address] 93534- 0372 Oct, [facility] [id number] [place] [address] 18734 -0629 Sep, Left foot pain M79.672 [facility] [address] 17247- 1449 Sep, [facility] [id number] [place] [address] 31455- 4251 Sep, Anxiety F41.9 [facility] [id number] [place] [address] 24790- 7147 Sep, [facility] [id number] [place] [address] 69429- 0077 Aug, [facility] [id number] [place] [address] 01072- 2793 Aug, [facility] [id number] [place] [address] 98238- 3299 Aug, Anxiety F41.9 [facility] [id number] [place] [address] 68927- 3199 Aug, [facility] [id number] [place] [address] 54633- 7768 Jul, [facility] [id number] [place] [address] 82018- 1129 Jul, Anxiety F41.9 [facility] [id number] [place] [address] 40413- 6594 June, Anxiety F41.9 [facility] [id number] [place] [address] 73130- 5928 June, [facility] [id number] [place] [address] 82647- 7628 June, Low back pain M54.5 ; Chronic prescription opiate use Z79.899 ; Candidal intertrigo B37.2 ; Urge incontinence N39.41 ; Essential hypertension I10 ; Moderate episode of recurrent major depressive disorder F33.1 ; Age-related osteoporosis without current pathological fracture M81.0 and BMI 45.0-49.9, adult Z68.42 [facility] [address] 66826- 7639 June, [facility] [address] 10095- 1426 May, Anxiety F41.9 [facility] [address] 56609- 0047 May, [facility] [address] 06870- 8535 May, [facility] [address] 80438- 4096 Apr, Anxiety F41.9 [facility] [address] 74913- 3906 Apr, [facility] [address] 20053- 0141 Apr, Low back pain M54.5 [facility] [address] 56234- 1500 Apr, [facility] [address] 08465- 2961 Apr, [facility] [id number] [place] [address] 78371- 1980 Apr, Anxiety F41.9 [facility] [address] 11386- 5073 Apr, Right groin pain R10.31 [facility] [address] 61110- 0655 Mar, [facility] [id number] [place] [address] 07948- 9415 Mar, [facility] [address] 94853- 3790 Mar, Anxiety F41.9 [facility] [id number] [place] [address] 37604- 5305 Mar, Low back pain M54.5 [facility] [address] 44837- 4222 Mar, Right groin pain R10.31 ; Low back pain M54.5 and BMI 45.0- 49.9, adult Z68.42 [facility] [id number] [place] [address] 37738- 9359 Mar, [facility] [address] 94842- 5182 Mar, [facility] [id number] [place] [address] 61243- 6182 Mar, [facility] [id number] [place] [address] 50841 -7188 Mar, [facility] [id number] [place] [address] 11435 -3208 Mar, Cough R05 ; Pneumonia of right lower lobe due to infectious organism J18.1 and Abnormal chest x-ray R93.8 [facility] [id number] [place] [address] 57142- 9026 Mar, [facility] [id number] [place] [address] 42265- 7144 Mar, [facility] [id number] [place] [address] 51252- 1118 Jan, Anxiety F41.9 [facility] [id number] [place] [address] 55509- 0975 Jan, [facility] [id number] [place] [address] 87412- 8573 Jan, Moderate episode of recurrent major depressive disorder F33.1 [facility] [id number] [place] [address] 03147- 1659 Jan, Subacromial bursitis of right shoulder joint M75.51 ; Shortness of breath on exertion R06.02 and BMI 45.0-49.9, adult Z68.42 [facility] [id number] [place] [address] 39198- 0314 Dec, Anxiety F41.9 [facility] [id number] [place] [address] 41764- 6707 Dec, [facility] [id number] [place] [address] 63282- 9025 Dec, Low back pain M54.5 [facility] [id number] [place] [address] 98246- 3189 Oct, Low back pain M54.5 [facility] [id number] [place] [address] 85979- 4871 Sep, [facility] [id number] [place] [address] 40726- 2003 Sep, Erectile dysfunction due to diseases classified elsewhere N52.1 [facility] [id number] [place] [address] 68704- 1980 Sep, Erectile dysfunction due to diseases classified elsewhere N52.1 [facility] [id number] [place] [address] 71148- 9717 Sep, [facility] [id number] [place] [address] 57537- 3056 Sep, Erectile dysfunction due to diseases classified elsewhere N52.1 [facility] [id number] [place] [address] 10566- 3489 Sep, Low back pain M54.5 and Anxiety F41.9 [facility] [id number] [place] [address] 82469 -1094 13 Aug, 2016 Acute allergic rhinitis J30.9 [facility] [address] 22953- 2030 Aug, [facility] [id number] [place] [address] 90064- 9365 Aug, Anxiety F41.9 [facility] [address] 23326- 9734 Jul, Low back pain M54.5 ; Chronic prescription opiate use Z79.899 and Essential hypertension I10 [facility] [address] 22139- 2497 Jul, Anxiety F41.9 and Low back pain M54.5 [facility] [id number] [place] [address] 59920- 1638 June, [facility] [id number] [place] [address] 66055- 1221 June, Anxiety F41.9 [facility] [id number] [place] [address] 44086- 8517 May, Low back pain M54.5 [facility] [id number] [place] [address] 12535- 6475 May, [facility] [id number] [place] [address] 49281- 1265 May, Anxiety F41.9 [facility] [id number] [place] [address] 59958- 0613 Apr, [facility] [id number] [place] [address] 44910- 1605 24 Apr, 2016 Low back pain M54.5 [facility] [id number] [place] [address] 07560- 5630 Apr, Moderate episode of recurrent major depressive disorder F33.1 [facility] [id number] [place] [address] 34943- 1838 Apr, Anxiety F41.9 [facility] [id number] [place] [address] 08144- 5746 Apr, Low back pain M54.5 [facility] [id number] [place] [address] 19433- 9941 Apr, Elevated alkaline phosphatase level R74.8 [facility] [address] 34912- 0306 10 Apr, 2016 Alkaline phosphatase elevation R74.8 [facility] [address] 48213- 1748 Apr, Anxiety F41.9 [facility] [id number] [place] [address] 40932- 4671 Apr, Low back pain M54.5 [facility] [id number] [place] [address] 03623- 4842 Apr, History of weight loss surgery Z98.84 ; Encounter for hepatitis C screening test for low risk patient Z11.59 ; History of herpes genitalis Z86.19 ; Essential hypertension I10 ; Hyperlipidemia, unspecified E78.5 ; Exposure to STD Z20.2 and Benign prostatic hyperplasia, presence of lower urinary tract symptoms unspecified, unspecified morphology N40.0 [facility] [id number] [place] [address] 80888- 0195 Apr, [facility] [id number] [place] [address] 73760- 7026 Mar, [facility] [id number] [place] [address] 89215- 0142 Mar, [facility] [id number] [place] [address] 16144- 7440 Mar, [facility] [id number] [place] [address] 77571- 3138 Mar, Acute right-sided low back pain with right-sided sciatica M54.41 [facility] [address] [address]- 8184 Mar, Low back pain M54.5 [facility] [address] [address] -2491 13 Mar, 2016 Muscle strain of chest wall, initial encounter S29.011A ; Muscle strain of right thigh, initial encounter S76.911A and Acute non- recurrent maxillary sinusitis J01.00 [facility] [id number] [place] [address] 91748- 7679 03 Mar, 2016 Benign prostatic hyperplasia, presence of lower urinary tract symptoms unspecified, unspecified morphology N40.0 [facility] [id number] [place] [address] 74691- 1598 Jan, Low back pain M54.5 [facility] [id number] [place] [address] 05437- 6863 Jan, Low back pain M54.5 ; Essential hypertension I10 ; Hyperlipidemia, unspecified E78.5 ; Anxiety F41.9 ; Moderate episode of recurrent major depressive disorder F33.1 ; Primary insomnia F51.01 ; Exposure to STD Z20.2 ; Encounter for hepatitis C screening test for low risk patient Z11.59 and History of herpes genitalis Z86.19 [facility] [address] [address]- 0313 Dec, [facility] [id number] [place] [address] 65940- 0460 Nov, [facility] [id number] [place] [address] 61389- 1678 Nov, Anxiety F41.9 ; Cervicalgia M54.2 ; Moderate episode of recurrent major depressive disorder F33.1 and Encounter for immunization Z23 [facility] [address] [address]- 0472 Oct, [facility] [id number] [address]- 4095 22 Nov, 2015 [facility] [id number] [place] [address] 10877- 0194 16 Nov, 2015 [facility] [address] [address]- 7528 Oct, [facility] [id number] [place] [address] 49571- 4832 Sep, [facility] [id number] [place] [address] 09908- 6231 Aug, Low back pain M54.5 ; Anxiety F41.9 ; Primary insomnia F51.01 and Chronic prescription opiate use Z79.899 [facility] [address] [address]- 4167 Jul, [facility] [id number] [place] [address] 44182- 8303 Jul, [facility] [address] [address]- 8780 Jul, [facility] [id number] [place] [address] 89808- 9799 Jul, [facility] [address] [address]- 6244 Jul, [facility] [id number] [address]- 2946 June, [facility] [address] [address]- 4513 June, [facility] [address] [address]- 7790 June, [facility] [address] [address]- 0581 June, [facility] [address] [address]- 3435 26 Apr, 2016 Preoperative cardiovascular examination Z01.810 [facility] [address] [address]- 4446 May, [facility] [id number] [place] [address] 25551- 5173 Apr, [facility] [id number] [place] [address] 24806- 5815 Apr, Osteoarthritis of right knee M17.9 [facility] [id number] [place] [address] 72159- 3876 30 May, 2015 [facility] [id number] [place] [address] 59574- 5229 16 May, 2015 [facility] [id number] [place] [address] 16966- 8365 Apr, [facility] [id number] [place] [address] 33720- 8690 Apr, [facility] [id number] [place] [address] 43533- 1172 08 May, 2015 History of excessive cerumen Z78.9 ; Obstructive sleep apnea syndrome G47.33 ; History of diverticulitis Z87.19 and Nephrolithiasis N20.0 [facility] [id number] [place] [address] 86833- 5261 Apr, [facility] [id number] [place] [address] 32220 -7741 Apr, Abdominal pain R10.9 [facility] [id number] [place] [address] 84721- 4967 Apr, [facility] [id number] [place] [address] 10298- 6247 Apr, Osteoarthritis of right knee M17.9 [facility] [id number] [place] [address] 54760- 8504 Mar, [facility] [address] [place] [address]- 3207 15 Mar, 2015 [facility] [id number] [place] [address] 62380- 6718 14 Mar, 2015 [facility] [id number] [place] [address] 54703- 7515 13 Mar, 2015 [facility] [id number] [place] [address] 69375 -8547 Mar, Pyelonephritis N12 ; Left-sided thoracic back pain M54.6 ; Hematuria, unspecified R31.9 and Kidney stone N20.0 [facility] [id number] [place] [address] 25492- 8157 12 Mar, 2015 History of weight loss surgery Z98.84 [facility] [id number] [place] [address] 71760- 9527 07 Mar, 2015 History of weight loss surgery Z98.84 and Hyperlipidemia, unspecified E78.5 [facility] [id number] [place] [address] 23508- 2772 Mar, Low back pain M54.5 ; Chronic prescription opiate use Z79.899 ; Hyperlipidemia, unspecified E78.5 ; Spasm of back muscles M62.830 and History of weight loss surgery Z98.84 [facility] [id number] [place] [address] 39856- 1696 Jan, [facility] [id number] [place] [address] 56527- 1392 Jan, [facility] [id number] [place] [address] 87972- 2333 Jan, [facility] [id number] [place] [address] 28316- 6082 Dec, [facility] [id number] [place] [address] 51059- 5701 Dec, [facility] [id number] [place] [address] 63033- 0312 Dec, [facility] [id number] [place] [address] 39597- 1642 Nov, [facility] [id number] [place] [address] 27721- 7154 Nov, Obstructive sleep apnea syndrome G47.33 and Pharyngoesophageal dysphagia R13.14 [facility] [address] 39418- 0536 Nov, [facility] [id number] [place] [address] 40429- 4260 Nov, [facility] [address] 57829- 6293 Nov, [facility] [address] [id number] Oct, 2014 Dental examination V72.2 [facility] [id number] [place] [address] 41226- 7039 Oct, [facility] [id number] [place] [address] 75012- 2247 Oct, [facility] [id number] [place] [address] 88531- 5515 Oct, [facility] [id number] [place] [address] 27906- 9417 Oct, [facility] [id number] [place] [address] 30263- 6588 Oct, BPH (benign prostatic hyperplasia) 600.00 and Urinary frequency 788.41 [facility] [id number] [place] [address] 09893- 3850 Oct, [facility] [id number] [place] [address] 58018- 6588 Oct, [facility] [id number] [place] [address] 27040- 5737 Oct, [facility] [id number] [place] [address] 76977- 7108 Sep, Cerumen impaction 380.4 ; Cerumen debris on tympanic membrane 380.4 ; Psoriasis 696.1 and MICKY (secretory otitis media) 381.4 [facility] [id number] [id number] Sep, Dental examination V72.2 [facility] [address] 96922- 6408 Sep, Fatigue 780.79 ; Irritable bowel syndrome 564.1 ; Overweight 278.02 ; Poor sleep V69.4 ; Shaking spells 781.0 and Broken tooth 873.63 [facility] [id number] [place] [address] 70701- 2236 Sep, [facility] [id number] [place] [address] 24059- 8440 Sep, [facility] [id number] [place] [address] 80067- 9132 Aug, [facility] [id number] [place] [address] 46741- 1685 Jul, [facility] [id number] [place] [address] 21392- 7037 Jul, [facility] [id number] [place] [address] 07368- 0180 Jul, [facility] [id number] [place] [address] [id number] Jul, [facility] [id number] [place] [address] [id number]- 3094 June, Arthritis of knee, right 716.96 [facility] [id number] [place] [address] 12027- 2473 June, [facility] [id number] [place] [address] [id number]- [phone] June, Elevated blood pressure reading without diagnosis of hypertension 796.2 [facility] [address] [id number] [place] [address] June, [facility] [address] [id number] [place] [address] June, [facility] [address] [facility] [id number] [place] [address] June, [facility] [address] [id number] [place] [address] June, [facility] [address] [id number] [place] [address] May, [facility] [address] [id number] [place] [address]35 May, [facility] [address] [id number] [address] Apr, [facility] [address] [facility] [id number] [place] [address] 2680 Apr, [facility] [address] [facility] [id number] [place] [address] 2356 Apr, [facility] [address] [facility] [id number] [place] [address] Apr, [facility] [address] [facility] [id number] [address] Apr, [facility] [address] [id number] [address] Apr, [facility] [address] [id number] [place] [address]- [address]56 Apr, [facility] [address] [facility] [id number] [place] [address] Apr, [facility] [address] [facility] [id number] [place] [address]- 2083 Apr, [facility] [place] [facility] [address] [id number] [place] [address]3 Apr, [facility] [place] [facility] [address] [id number] [place] [address]126 Apr, 2014 [facility] [place] [facility] [address] [facility] [id number] [place] [address] 2546 Apr, 2014 [facility] [place] [facility] [address] [facility] [id number] [place] [address] 2545 24 Apr, 2014 [facility] [place] [facility] [address] [id number] [place] [address] 2543 Apr, 2014 [facility] [place] [facility] [address] [facility] [id number] [place] [address]- 4446 Apr, 2014 [facility] [place] [facility] [address] [facility] [id number] [place] [address]- 5760 Apr, 2014 [facility] [place] [facility] [address] [facility] [id number] [place] [address]- 2690 Apr, 2014 [facility] [place] [facility] [address] [facility] [id number] [place] [address]- 8588 Apr, 2014 [facility] [place] [facility] [address] [facility] [id number] [place] [address]- 4366 Apr, 2014 [facility] [place] [facility] [address] [facility] [id number] [place] [address]- 2542 18 Apr, 2014 [facility] [place] [facility] [address] [facility] [id number] [place] [address]- 2549 13 Apr, 2014 [facility] [place] [facility] [address] [facility] [id number] [place] [address]- 2542 13 Apr, 2014 [facility] [place] [facility] [address] [facility] [id number] [place] [address]- 9789 13 Apr, 2014 [facility] [place] [facility] [address] [facility] [id number] [place] [address]- 8705 13 Apr, 2014 [facility] [place] [facility] [address] [facility] [id number] [place] [address]- 1528 Apr, 2014 [facility] [place] [facility] [address] [id number] [place] [address]- 0856 Apr, 2014 [facility] [place] [facility] [address] [id number] [place] [address]- 6926 Apr, 2014 [facility] [place] [facility] [address] [id number] [place] [address]- 9592 Apr, 2014 [facility] [place] [facility] [address] [id number] [place] [address]- 8766 Apr, 2014 [facility] [place] [facility] [address] [id number] [place] [address]- 4104 Apr, 2014 [facility] [place] [facility] [address] [facility] [id number] [place] [address]- 0278 Apr, 2014 [facility] [place] [facility] [address] [facility] [id number] [place] [address]- 7960 Apr, 2014 [facility] [place] [facility] [address] [id number] [place] [address]- 2818 Apr, 2014 [facility] [place] [facility] [address] [facility] [id number] [place] [address]- 2286 Mar, [facility] [place] [facility] [address] [facility] [id number] [place] [address]- 5587 Mar, [facility] [place] [facility] [address] [id number] [place] [address]- 0194 Mar, [facility] [place] [facility] [address] [id number] [place] [address]- 7455 Mar, [facility] [place] [facility] [address] [id number] [place] [address]- 2595 Mar, [facility] [place] [facility] [address] [id number] [place] [address]- 7885 Mar, [facility] [place] [facility] [address] [id number] [place] [address]- 9676 Mar, [facility] [place] [facility] [address] [id number] [place] [address]- 9065 Mar, [facility] [place] [facility] [address] [id number] [place] [address]- 3381 Mar, [facility] [place] [facility] [address] [id number] [place] [address]- 1930 Mar, [facility] [place] [facility] [address] [id number] [place] [address]- 8517 Jan, [facility] [place] [facility] [address] [id number] [place] [address]- 6089 Jan, [facility] [place] [facility] [address] [id number] [place] [address]- 9840 Jan, [facility] [place] [facility] [address] [id number] [place] [address]- 8281 Jan, [facility] [place] [facility] [address] [id number] [place] [address]- 1555 Jan, [facility] [place] [facility] [address] [id number] [place] [address]- 7784 Jan, [facility] [place] [facility] [address] [id number] [place] [address]- 6198 Jan, [facility] [place] [facility] [address] [id number] [place] [address]- 5976 Jan, [facility] [place] [facility] [address] [id number] [address] 2596 Jan, [facility] [place] [facility] [address] [id number] [place] [address]- 7796 Jan, [facility] [place] [facility] [address] [id number] [place] [address]- 2432 Jan, [facility] [place] [facility] [address] [id number] [place] [address]- 5493 Jan, [facility] [place] [facility] [address] [id number] [place] [address]- 6467 Dec, [facility] [place] [facility] [address] [id number] [place] [address]- 1876 Dec, [facility] [place] [facility] [address] [id number] [place] [address]- 9665 Dec, [facility] [place] [facility] [address] [id number] [place] [address]- 5106 Dec, [facility] [place] [facility] [address] [id number] [place] [address]- 5702 Dec, [facility] [place] [facility] [address] [id number] [place] [address]- 4043 Dec, [facility] [place] [facility] [address] [id number] [place] [address]- 6817 Dec, [facility] [place] [facility] [address] [id number] [place] [address]- 0493 Dec, [facility] [place] [facility] [address] [id number] [place] [address]- 3419 Dec, [facility] [place] [facility] [address] [id number] [place] [address]- 2807 Dec, [facility] [place] [facility] [address] [facility] [id number] [place] [address]- 9286 Nov, [facility] [place] [facility] [address] [id number] [place] [address]- 0073 Nov, [facility] [place] [facility] [address] [id number] [place] [address]- 5118 Nov, [facility] [place] [facility] [address] [id number] [place] [address]- 8732 Nov, [facility] [place] [facility] [address] [id number] [place] [address]- 9560 Nov, [facility] [place] [facility] [address] [id number] [place] [address]- 9143 Nov, [facility] [place] [facility] [address] [id number] [place] [address]- 5126 Nov, [facility] [place] [facility] [address] [id number] [place] [address]- 7382 Nov, [facility] [place] [facility] [address] [id number] [place] [address]- 1346 Nov, [facility] [place] [facility] [address] [id number] [place] [address]- 6332 Nov, [facility] [place] [facility] [address] [id number] [place] [address]- 4500 Nov, [facility] [place] [facility] [address] [id number] [place] [address]- 2363 Nov, [facility] [place] [facility] [address] [id number] [place] [address]- 4366 Nov, [facility] [place] [facility] [address] [id number] [place] [address]- 1704 Nov, [facility] [place] [facility] [address] [id number] [place] [address]- 2108 Nov, [facility] [place] [facility] [address] [id number], [place] [address]- 0990 Nov, [facility] [place] [facility] [address] [id number], [place] [address]- 3469 Nov, [facility] [place] [facility] [address] [id number], [place] [address]- 6823 Nov, [facility] [place] [facility] [address] [id number] [place] [address]- 6512 Nov, [facility] [place] [facility] [address] [id number] [place] [address]- 9480 Nov, [facility] [place] [facility] [address] [id number], [place] [address]- 7090 Oct, [facility] [place] [facility] [address] [id number], [place] [address]- 5426 Oct, [facility] [place] [facility] [address] [id number] [place] [address]- 1995 Oct, 2013 [facility] [place] [facility] [address] [id number] [place] [address]- 2486 Oct, [facility] [place] [facility] [address] [id number] [place] [address]- 6447 Oct, [facility] [place] [facility] [address] [id number] [place] [address]- 3456 Oct, 2013 [facility] [place] [facility] [address] [id number] [place] [address]- 9010 Oct, [facility] [place] [facility] [address] [id number] [place] [address]- 3475 Oct, [facility] [place] [facility] [address] [id number] [place] [address]- 6364 Oct, [facility] [place] [facility] [address] [id number] [place] [address]- 3159 Oct, [facility] [place] [facility] [address] [id number] [place] [address]- 8485 Sep, [facility] [place] [facility] [address] [id number] [place] [address]- 2654 Sep, [facility] [place] [facility] [address] [id number] [place] [address]- 6712 Sep, [facility] [place] [facility] [address] [id number] [place] [address]- 5941 Sep, [facility] [place] [facility] [address] [id number] [place] [address]- 8195 Sep, [facility] [place] [facility] [address] [id number] [place] [address]- 1058 Sep, [facility] [place] [facility] [address] [id number] [place] [address]- 6413 Sep, [facility] [place] [facility] [address] [id number] [place] [address]- 7336 Sep, [facility] [place] [facility] [address] [id number] [place] [address]- 9590 Sep, [facility] [place] [facility] [address] [id number] [place] [address]- 1795 Sep, [facility] [place] [facility] [address] [id number] [place] [address]- 4917 Sep, [facility] [place] [facility] [address] [id number] [place] [address]- 8556 Sep, [facility] [place] [facility] [address] [id number] [place] [address]- 2313 Sep, [facility] [place] [facility] [address] [id number] [place] [address]- 0195 Sep, [facility] [place] [facility] [address] [id number] [place] [address]- 2509 Sep, [facility] [place] [facility] [address] [id number] [place] [address]- 5208 Sep, [facility] [place] [facility] [address] [id number] [place] [address]- 7826 Sep, [facility] [place] [facility] [address] [id number] [place] [address]- 3778 Sep, [facility] [place] [facility] [address] [id number] [place] [address]- 8736 Sep, [facility] [place] [facility] [address] [id number] [place] [address]- 2981 Sep, [facility] [place] [facility] [address] [id number] [place] [address]- 4541 Sep, [facility] [place] [facility] [address] [id number] [place] [address]- 9681 Sep, [facility] [place] [facility] [address] [id number] [place] [address]- 4597 Sep, [facility] [place] [facility] [address] [id number] [place] [address]- 7569 Sep, [facility] [place] [facility] [address] [id number] [place] [address]- 7744 Sep, [facility] [place] [facility] [address] [id number] [place] [address]- 0298 Aug, [facility] [place] [facility] [address] [id number] [place] [address]- 5723 Aug, [facility] [place] [facility] [address] [id number] [place] [address]- 6732 Aug, [facility] [place] [facility] [address] [id number] [place] [address]- 5083 Aug, [facility] [place] [facility] [address] [id number] [place] [address]- 3234 Aug, [facility] [place] [facility] [address] [id number] [place] [address]- 1172 Aug, [facility] [place] [facility] [address] [id number] [place] [address]- 3005 Aug, [facility] [place] [facility] [address] [id number] [place] [address]- 3868 Aug, [facility] [place] [facility] [address] [id number] [place] [address]- 9720 Aug, [facility] [place] [facility] [address] [id number] [place] [address]- 9218 Aug, [facility] [place] [facility] [address] [id number] [place] [address]- 8901 Aug, [facility] [place] [facility] [address] [id number] [place] [address]- 7107 Aug, [facility] [place] [facility] [address] [id number] [place] [address]- 0564 Aug, [facility] [place] [facility] [address] [id number] [place] [address]- 8036 Jul, [facility] [place] [facility] [address] [id number] [place] [address]- 2120 Jul, [facility] [place] [facility] [address] [id number] [place] [address]- 3609 Jul, [facility] [place] [facility] [address] [id number] [place] [address]- 1372 Jul, [facility] [place] [facility] [address] [id number] [place] [address]- 9326 Jul, [facility] [place] [facility] [address] [id number] [place] [address]- 7425 Jul, [facility] [place] [facility] [address] [id number] [place] [address]- 1642 Jul, [facility] [place] [facility] [address] [id number] [place] [address]- 4093 June, [facility] [place] [facility] [address] [id number] [place] [address]- 6745 June, [facility] [place] [facility] [address] [id number] [place] [address]- 5794 June, [facility] [place] [facility] [address] [id number] [place] [address]- 3975 June, [facility] [place] [facility] [address] [id number] [place] [address]- 6323 May, [facility] [place] [facility] [address] [id number] [place] [address]- 7969 May, [facility] [place] [facility] [address] [id number] [place] [address]- 4075 May, [facility] [place] [facility] [address] [id number] [place] [address]- 0540 May, [facility] [place] [facility] [address] [id number] [place] [address]- 0068 May, [facility] [place] [facility] [address] [id number] [place] [address]- 4192 May, [facility] [place] [facility] [address] [id number] [place] [address]- 1384 May, [facility] [place] [facility] [address] [id number] [place] [address]- 0435 May, [facility] [place] [facility] [address] [id number] [place] [address]- 7178 May, [facility] [place] [facility] [address] [id number] [place] [address]- 3135 May, [facility] [place] [facility] [address] [id number] [place] [address]- 0338 Apr, [facility] [place] [facility] [address] [id number] [place] [address]- 1809 Apr, [facility] [place] [facility] [address] [id number] [place] [address]- 9014 Apr, [facility] [place] [facility] [address] [id number] [place] [address]- 0582 Apr, [facility] [place] [facility] [address] [id number] [place] [address]- 4348 Apr, [facility] [place] [facility] [address] [id number] [place] [address]- 6227 Apr, [facility] [place] [facility] [address] [id number] [place] [address]- 4800 Apr, [facility] [place] [facility] [address] [id number] [place] [address]- 2565 Apr, [facility] [place] [facility] [address] [id number] [place] [address]- 8664 Apr, [facility] [place] [facility] [address] [id number] [place] [address]- 5913 Apr, [facility] [place] [facility] [address] [id number] [place] [address]- 4758 Mar, [facility] [address] [id number] [place] [address]- 7429 Mar, [facility] [place] [facility] [address] [id number] [place] [address]- 1561 Mar, [facility] [place] [facility] [address] [id number] [place] [address]- 1223 Mar, [facility] [place] [facility] [address] [id number] [place] [address]- 5885 Mar, [facility] [place] [facility] [address] [id number] [place] [address]- 2157 Mar, [facility] [place] [facility] [address] [id number] [place] [address]- 6266 Jan, [facility] [address] [id number] [place] [address]- 7522 Jan, [facility] [place] [facility] [address] [id number] [place] [address]- 1944 Jan, [facility] [place] [facility] [address] [id number] [place] [address]- 0647 Jan, [facility] [place] [facility] [address] [facility] [id number] [place] [address]- 4555 Jan, [facility] [place] [facility] [address] [id number] [place] [address]- 5606 Jan, [facility] [place] [facility] [address] [id number] [place] [address]- 3607 Jan, [facility] [place] [facility] [address] [id number] [place] [address]- 8991 Jan, [facility] [place] [facility] [address] [id number] [place] [address]- 5943 Jan, [facility] [place] [facility] [address] [id number] [place] [address]- 4351 Dec, [facility] [place] [facility] [address] [id number] [place] [address]- 2117 Dec, [facility] [place] [facility] [address] [id number] [place] [address]- 1021 Dec, [facility] [place] [facility] [address] [id number] [place] [address]- 1796 Dec, [facility] [place] [facility] [address] [id number] [place] [address]- 7217 Dec, [facility] [place] [facility] [address] [id number] [place] [address]- 9609 Dec, [facility] [place] [facility] [address] [id number] [place] [address]- 3492 Dec, [facility] [place] [facility] [address] [id number] [place] [address]- 4335 Dec, [facility] [place] [facility] [address] [id number] [place] [address]- 6136 Dec, [facility] [place] [facility] [address] [id number] [place] [address]- 6531 Dec, [facility] [place] [facility] [address] [id number] [place] [address]- 6973 Dec, [facility] [place] [facility] [address] [id number] [place] [address]- 5980 Nov, [facility] [place] [facility] [address] [id number] [place] [address]- 1186 Nov, [facility] [place] [facility] [address] [id number] [place] [address]- 3666 Nov, [facility] [place] [facility] [address] [id number] [place] [address]- 5847 Nov, [facility] [place] [facility] [address] [id number] [place] [address]- 1433 Nov, [facility] [place] [facility] [address] [id number] [place] [address]- 6469 Oct, [facility] [address] [id number] [place] [address]- 3355 Oct, [facility] [place] [facility] [address] [id number] [place] [address]- 1166 Sep, [facility] [place] [facility] [address] [id number] [place] [address]- 7479 Aug, [facility] [place] [facility] [address] [id number] [place] [address]- 2463 Aug, [facility] [address] [id number] [place] [address]- 6926 Aug, [facility] [place] [facility] [address] [id number] [place] [address] Aug, [facility] [place] [facility] [address] [id number] [place] [address] Jul, [facility] [place] [facility] [address] [id number] [place] [address] Jul, [facility] [place] [facility] [address] [id number] [place] [address] June, [facility] [place] [facility] [address] [id number] [place] [address] June, [facility] [place] [facility] [address] [id number] [place] [address] June, [facility] [place] [facility] [address] [id number] [place] [address] May, [facility] [place] [facility] [address] [id number] [place] [address] May, [facility] [place] [facility] [address] [id number] [place] [address] May, [facility] [place] [facility] [address] [id number] [place] [address] Apr, [facility] [place] [facility] [address] [id number] [place] [address] 18 Apr, 2012 [facility] [address] [id number] [place] [address] 15 Apr, 2012 [facility] [place] [facility] [address] [id number] [place] [address] 2546 14 Apr, 2012 [facility] [place] [facility] [address] [id number] [place] [address] 12 Apr, 2012 [facility] [place] [facility] [address] [id number] [place] [address] 2543 27 Apr, 2012 [facility] [place] [facility] [address] [id number] [place] [address] Apr, [facility] [place] [facility] [address] [id number] [place] [address] Apr, [facility] [place] [facility] [address] [id number] [place] [address] Apr, [facility] [place] [facility] [address] [id number] [place] [address]687 20 Apr, 2012 [facility] [place] [facility] [address] [id number] [place] [address]- [address] 19 Apr, 2012 [facility] [place] [facility] [address] [facility] [id number] [place] [address] Apr, [facility] [place] [facility] [address] [id number] [place] [address] 07 Apr, 2012 [facility] [place] [facility] [address] [id number] [place] [address] Mar, [facility] [place] [facility] [address] [id number] [place] [address] 2541 23 Mar, 2012 [facility] [place] [facility] [address] [id number] [place] [address]47 16 Mar, 2012 [facility] [place] [facility] [address] [id number] [place] [address] Mar, [facility] [address] [id number] [place] [address] Mar, [facility] [place] [facility] [address] [id number] [place] [address] Jan, [facility] [place] [facility] [address] [id number] [place] [address] Jan, [facility] [place] [facility] [address] [id number] [place] [address] Jan, [facility] [place] [facility] [address] [id number] [place] [address] Jan, [facility] [place] [facility] [address] [id number] [place] [address]- 1163 14 Jan, 2012 [facility] [place] [facility] [address] [id number] [place] [address] 9707 Jan, [facility] [place] [facility] [address] [id number] [place] [address]- 1706 Jan, [facility] [place] [facility] [address] [id number] [place] [address] Jan, [facility] [place] [facility] [address] [id number] [place] [address] Jan, [facility] [place] [facility] [address] [id number] [place] [address] Jan, [facility] [place] [facility] [address] [id number], [place] [address] 04 Jan, 2012 [facility] [place] [facility] [address] [id number] [place] [address] Jan, [facility] [place] [facility] [address] [id number] [place] [address]- [address] Jan, [facility] [place] [facility] [address] [id number] [place] [address]- 2806 Jan, [facility] [place] [facility] [address] [id number] [place] [address]- 67[address] 26 Jan, 2012 [facility] [place] [facility] [address] [id number] [place] [address]- 4785 26 Jan, 2012 [facility] [place] [facility] [address] [id number] [place] [address]- 8088 19 Jan, 2012 [facility] [place] [facility] [address] [id number] [place] [address]- 7436 19 Jan, 2012 [facility] [place] [facility] [address] [id number] [place] [address]- [address]288 15 Jan, 2012 [facility] [place] [facility] [address] [id number] [place] [address]- 1357 15 Jan, 2012 [facility] [place] [facility] [address] [id number] [place] [address]- 8585 14 Jan, 2012 [facility] [place] [facility] [address] [id number] [place] [address]- 0236 14 Jan, 2012 [facility] [place] [facility] [address] [id number] [place] [address]- 7[address] 14 Jan, 2012 [facility] [place] [facility] [address] [id number] [place] [address]- 1690 14 Jan, 2012 [facility] [place] [facility] [address] [id number] [place] [address]- 9026 07 Jan, 2012 [facility] [place] [facility] [address] [id number] [place] [address]- 3691 07 Jan, 2012 [facility] [place] [facility] [address] [id number] [address] 16 Dec, 2011 [facility] [place] [facility] [address] [id number] [place] [address]- 4620 16 Dec, 2011 [facility] [place] [facility] [address] [id number] [place] [address]- 9482 13 Nov, 2011 [facility] [place] [facility] [address] [id number] [place] [address]- [address]992 13 Nov, 2011 [facility] [place] [facility] [address] [id number] [place] [address]- 0024 13 Nov, 2011 [facility] [place] [facility] [address] [id number] [place] [address]- 4066 12 Nov, 2011 [facility] [place] [facility] [address] [id number] [place] [address]- [address]63 Sep, [facility] [place] [facility] [address] [id number] [place] [address] 2546 Sep, [facility] [place] [facility] [address] [id number] [place] [address]- 5947 Aug, [facility] [place] [facility] [address] [id number] [place] [address]- 54[address] Aug, [facility] [place] [facility] [address] [id number] [place] [address]- 7584 Aug, [facility] [place] [facility] [address] [id number] [place] [address]- 6828 Aug, [facility] [place] [facility] [address] [id number] [place] [address]- 9439 June, [facility] [place] [facility] [address] [id number] [place] [address]- 0620 June, [facility] [place] [facility] [address] [id number] [place] [address]- 4[address] May, [facility] [place] [facility] [address] [id number] [place] [address]- 8433 Apr, [facility] [place] [facility] [address] [id number] [place] [address]- 6899 Apr, [facility] [place] [facility] [address] [id number] [place] [address]- 0496 Apr, [facility] [place] [facility] [address] [id number] [place] [address]- 2546 Apr, [facility] [place] [facility] [address] [id number], [place] [address] Apr, [facility] [address] [id number] [place] [address]- [address]161 Apr, [facility] [place] [facility] [address] [id number] [place] [address]- 3113 Mar, [facility] [address] [facility] [id number] [place] [address] Mar, [facility] [place] [facility] [address] [id number] [place] [address] Mar, [facility] [address] [facility] [id number] [place] [address], [place] [address] Jan, [facility] [place] [facility] [address] [facility] [id number] [place] [address] Jan, [facility] [address] [facility] [id number] [place] [address] Jan, [facility] [place] [facility] [address] [facility] [id number] [place] [address] Jan, [facility] [address] [facility] [id number] [place] [address] Jan, [facility] [place] [facility] [address] [facility] [id number] [place] [address] Jan, [facility] [address] [facility] [id number] [place] [address] Jan, [facility] [place] [facility] [address] [facility] [id number] [address] Dec, [facility] [place] [facility] [address] [id number], [place] [address] Dec, [facility] [place] [facility] [address] [facility] [id number], [place] [address] Nov, [facility] [place] [facility] [address] [facility] [id number] [address] Nov, [facility] [place] [facility] [address] [id number] [place] [address] 12 Nov, 2010 [facility] [place] [facility] [address] [id number] [place] [address] 12 Nov, 2010 [facility] [place] [facility] [address] [id number] [place] [address] Oct, [facility] [place] [facility] [address] [id number] [place] [address] Sep, [facility] [place] [facility] [address] [id number] [place] [address] Mar, [facility] [place] [facility] [address] [id number] [place] [address] Jan, [facility] [place] [facility] [address] [id number] [place] [address] Dec, [facility] [place] [facility] [address] [id number] [place] [address] Dec, [facility] [place] [facility] [address] [id number] [place] [address] Dec, [facility] [place] [facility] [address] [id number] [place] [address] Dec, [facility] [place] [facility] [address] [id number] [place] [address] 26 Nov, 2009 [facility] [place] [facility] [address] [id number] [place] [address] 15 Nov, 2009 [facility] [place] [facility] [address] [id number] [place] [address] 14 Nov, 2009 [facility] [place] [facility] [address] [id number] [place] [address] 14 Nov, 2009 [facility] [place] [facility] [address] [id number] [place] [address] 13 Oct, 2009 [facility] [place] [facility] [address] [id number] [place] [address] Jul, [facility] [address] [id number] [address] June, [facility] [id number] [address] June, [facility] [id number] [address] Apr, [facility] [address] [id number] [address] Mar, [facility] [id number] [address] Jan, [facility] [id number] [place] [address] Jan, [facility] [id number], [place] [address] Dec, [facility] [id number] [address] Dec, [facility] [id number], [place] [address] Dec, [facility] [id number] [address] Dec, [facility] [id number], [place] [address] Nov, [facility] [id number], [place] [address] Jul, [facility] [address] [id number], [place] [address] June, IMMUNIZATIONS No Known Immunizations SOCIAL HISTORY Never Assessed REASON FOR VISIT Controlled Med Refill 09/16 PLAN OF CARE VITAL SIGNS MEDICATIONS Medication [...] Medical History oxygen dependent at [facility] Medical History colonic polyps Medical History hyperlipidemia [...]
--- OUTSIDE RECORDS SUMMARY | 2018-02-26 18:55 | XMS REPORT ---
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 Name Role Phone GRAHAMELLIOTT HANNAHANY Unavailable PROBLEMS Type Condition ICD9-CM Code UXF33-PC Code Onset Dates Condition Status SNOMED Code Problem Pulmonary asbestosis J61 Active 33460668 Problem Left ventricular diastolic dysfunction I51.9 Active 809146889 Problem Chronic gout, unspecified cause, unspecified site [id number].[id number] Active 22103687 Problem Renal cyst, left N28.1 Active 65109142 Problem History of weight loss surgery Z98.84 Active 544931864 Problem Nocturnal hypoxia G47.34 Active 995656743 Problem Obstructive sleep apnea syndrome G47.33 Active 63279185 Problem History of diverticulitis Z87.19 Active 045845628123528 Problem Allergic rhinitis, unspecified allergic rhinitis type J30.9 Active 75018584 Problem Erectile dysfunction due to diseases classified elsewhere N52.1 Active 663993447 Problem Acute right-sided low back pain with right-sided sciatica M54.41 Active 062786199 Problem Psoriasis L40.9 Active 9015591 Problem Essential hypertension I10 Active 28058664 Problem Nephrolithiasis N20.0 Active 22846436 Problem Chronic prescription opiate use Z79.899 Active 351474808 Problem 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 Active 64775823 Problem Benign prostatic hyperplasia, presence of lower urinary tract symptoms unspecified, unspecified morphology N40.0 Active 204628961 Problem Moderate episode of recurrent major depressive disorder F33.1 Active 704829809 Problem Age-related osteoporosis without current pathological fracture M81.0 Active 61001714 Problem Low back pain M54.5 Active 292685006 Problem Anxiety F41.9 Active 68604668 Problem Urge incontinence N39.41 Active 165392580 Problem Hyperlipidemia, unspecified E78.5 Active 39695814 Problem Esophageal stricture K22.2 Active 49974796 Problem Cervicalgia M54.2 Active 3244411870160 Problem Primary insomnia F51.01 Active 427626910 ALLERGIES No Information ENCOUNTERS Encounter Location Date Diagnosis [facility] [id number] [place] [address] 55143- 9083 Oct, [facility] [id number] [place] [address] 57908 -1087 Sep, Left foot pain M79.672 [facility] [address] 86394- 0424 Sep, [facility] [id number] [place] [address] 75951- 7993 Sep, Anxiety F41.9 [facility] [id number] [place] [address] 07929- 0324 Sep, [facility] [id number] [place] [address] 05240- 1291 Aug, [facility] [id number] [place] [address] 55953- 6995 Aug, [facility] [id number] [place] [address] 60947- 6815 Aug, Anxiety F41.9 [facility] [id number] [place] [address] 20160- 5199 Aug, [facility] [id number] [place] [address] 28464- 6132 Jul, [facility] [id number] [place] [address] 81958- 4096 Jul, Anxiety F41.9 [facility] [id number] [place] [address] 03560- 9147 June, Anxiety F41.9 [facility] [id number] [place] [address] 84794- 1155 June, [facility] [id number] [place] [address] 03139- 2206 June, Low back pain M54.5 ; Chronic prescription opiate use Z79.899 ; Candidal intertrigo B37.2 ; Urge incontinence N39.41 ; Essential hypertension I10 ; Moderate episode of recurrent major depressive disorder F33.1 ; Age-related osteoporosis without current pathological fracture M81.0 and BMI 45.0-49.9, adult Z68.42 [facility] [address] 38267- 0629 June, [facility] [address] 27667- 8398 May, Anxiety F41.9 [facility] [address] 78674- 1422 May, [facility] [address] 59018- 8921 May, [facility] [address] 21202- 4323 Apr, Anxiety F41.9 [facility] [address] 27231- 6433 Apr, [facility] [address] 91130- 8638 Apr, Low back pain M54.5 [facility] [address] 53747- 8488 Apr, [facility] [address] 99250- 4631 Apr, [facility] [id number] [place] [address] 47240- 6798 Apr, Anxiety F41.9 [facility] [address] 98411- 2285 Apr, Right groin pain R10.31 [facility] [address] 94403- 3137 Mar, [facility] [id number] [place] [address] 46470- 1226 Mar, [facility] [address] 09516- 5087 Mar, Anxiety F41.9 [facility] [id number] [place] [address] 91048- 5581 Mar, Low back pain M54.5 [facility] [address] 79022- 7664 Mar, Right groin pain R10.31 ; Low back pain M54.5 and BMI 45.0- 49.9, adult Z68.42 [facility] [id number] [place] [address] 53972- 9550 Mar, [facility] [address] 00527- 2897 Mar, [facility] [id number] [place] [address] 00793- 9196 Mar, [facility] [id number] [place] [address] 33216 -1728 Mar, [facility] [id number] [place] [address] 77946 -2967 Mar, Cough R05 ; Pneumonia of right lower lobe due to infectious organism J18.1 and Abnormal chest x-ray R93.8 [facility] [id number] [place] [address] 97517- 7182 Mar, [facility] [id number] [place] [address] 40369- 7293 Mar, [facility] [id number] [place] [address] 60919- 8759 Jan, Anxiety F41.9 [facility] [id number] [place] [address] 66968- 1457 Jan, [facility] [id number] [place] [address] 21992- 8063 Jan, Moderate episode of recurrent major depressive disorder F33.1 [facility] [id number] [place] [address] 61638- 3398 Jan, Subacromial bursitis of right shoulder joint M75.51 ; Shortness of breath on exertion R06.02 and BMI 45.0-49.9, adult Z68.42 [facility] [id number] [place] [address] 89610- 7585 Dec, Anxiety F41.9 [facility] [id number] [place] [address] 63897- 8100 Dec, [facility] [id number] [place] [address] 94751- 4260 Dec, Low back pain M54.5 [facility] [id number] [place] [address] 17923- 3215 Oct, Low back pain M54.5 [facility] [id number] [place] [address] 56170- 9396 Sep, [facility] [id number] [place] [address] 84861- 1118 Sep, Erectile dysfunction due to diseases classified elsewhere N52.1 [facility] [id number] [place] [address] 49853- 2848 Sep, Erectile dysfunction due to diseases classified elsewhere N52.1 [facility] [id number] [place] [address] 64537- 4332 Sep, [facility] [id number] [place] [address] 06089- 5928 Sep, Erectile dysfunction due to diseases classified elsewhere N52.1 [facility] [id number] [place] [address] 87253- 6146 Sep, Low back pain M54.5 and Anxiety F41.9 [facility] [id number] [place] [address] 05398 -8063 13 Aug, 2016 Acute allergic rhinitis J30.9 [facility] [address] 87550- 2637 Aug, [facility] [id number] [place] [address] 96772- 6091 Aug, Anxiety F41.9 [facility] [address] 59468- 8745 Jul, Low back pain M54.5 ; Chronic prescription opiate use Z79.899 and Essential hypertension I10 [facility] [address] 51801- 6471 Jul, Anxiety F41.9 and Low back pain M54.5 [facility] [id number] [place] [address] 85647- 1963 June, [facility] [id number] [place] [address] 01711- 2686 June, Anxiety F41.9 [facility] [id number] [place] [address] 48247- 5054 May, Low back pain M54.5 [facility] [id number] [place] [address] 29990- 8619 May, [facility] [id number] [place] [address] 07219- 2903 May, Anxiety F41.9 [facility] [id number] [place] [address] 04073- 0057 Apr, [facility] [id number] [place] [address] 67991- 8989 24 Apr, 2016 Low back pain M54.5 [facility] [id number] [place] [address] 03762- 5879 Apr, Moderate episode of recurrent major depressive disorder F33.1 [facility] [id number] [place] [address] 91999- 4575 Apr, Anxiety F41.9 [facility] [address] 19144- 4332 Apr, Low back pain M54.5 [facility] [id number] [place] [address] 57427- 6508 Apr, Elevated alkaline phosphatase level R74.8 [facility] [address] 58247- 8297 10 Apr, 2016 Alkaline phosphatase elevation R74.8 [facility] [address] 74074- 1115 Apr, Anxiety F41.9 [facility] [id number] [place] [address] 50786- 0598 Apr, Low back pain M54.5 [facility] [id number] [place] [address] 75322- 7402 Apr, Essential hypertension I10 ; History of weight loss surgery Z98.84 ; History of herpes genitalis Z86.19 ; Encounter for hepatitis C screening test for low risk patient Z11.59 ; Hyperlipidemia, unspecified E78.5 ; Benign prostatic hyperplasia, presence of lower urinary tract symptoms unspecified, unspecified morphology N40.0 and Exposure to STD Z20.2 [facility] [id number] [place] [address] 57792- 8739 Apr, [facility] [id number] [place] [address] 31088- 0441 Mar, [facility] [id number] [place] [address] 61981- 1477 Mar, [facility] [id number] [place] [address] 26723- 2798 Mar, [facility] [id number] [place] [address] 81869- 8745 Mar, Acute right-sided low back pain with right-sided sciatica M54.41 [facility] [address] [place] [address]- 1031 Mar, Low back pain M54.5 [facility] [address] [place] [address] -2315 13 Mar, 2016 Muscle strain of chest wall, initial encounter S29.011A ; Muscle strain of right thigh, initial encounter S76.911A and Acute non- recurrent maxillary sinusitis J01.00 [facility] [id number] [place] [address] 04311- 3561 03 Mar, 2016 Benign prostatic hyperplasia, presence of lower urinary tract symptoms unspecified, unspecified morphology N40.0 [facility] [id number] [place] [address] 03508- 5824 Jan, Low back pain M54.5 [facility] [id number] [place] [address] 53408- 8655 Jan, Low back pain M54.5 ; Essential hypertension I10 ; Hyperlipidemia, unspecified E78.5 ; Anxiety F41.9 ; Moderate episode of recurrent major depressive disorder F33.1 ; Primary insomnia F51.01 ; Exposure to STD Z20.2 ; Encounter for hepatitis C screening test for low risk patient Z11.59 and History of herpes genitalis Z86.19 [facility] [address], [place] [address]- 8431 Dec, [facility] [id number] [place] [address] 42123- 8307 Nov, [facility] [id number] [place] [address] 45155- 5091 Nov, Anxiety F41.9 ; Cervicalgia M54.2 ; Moderate episode of recurrent major depressive disorder F33.1 and Encounter for immunization Z23 [facility] [address] [place] [address]- 4891 Oct, [facility] [id number] [address]- 6599 22 Nov, 2015 [facility] [id number] [place] [address] 55748- 3580 16 Nov, 2015 [facility] [address] [address]- 2016 Oct, [facility] [id number] [place] [address] 14728- 9054 Sep, [facility] [id number] [place] [address] 63827- 6434 Aug, Low back pain M54.5 ; Anxiety F41.9 ; Primary insomnia F51.01 and Chronic prescription opiate use Z79.899 [facility] [address], [place] [address]- 8062 Jul, [facility] [id number] [place] [address] 67499- 8780 Jul, [facility] [address], [place] [address]- 2263 Jul, [facility] [id number] [place] [address] 42420- 2856 Jul, [facility] [address], [place] [address]- 3504 Jul, [facility] [address], [place] [address]- 1695 June, [facility] [address], [place] [address]- 2696 June, [facility] [address] [place] [address]- 1228 June, [facility] [address], [place] [address]- 5785 June, [facility] [address], [place] [address]- 7127 26 Apr, 2016 Preoperative cardiovascular examination Z01.810 [facility] [address], [place] [address]- 4651 May, [facility] [id number] [place] [address] 83446- 0025 Apr, [facility] [id number] [place] [address] 50343- 7457 Apr, Osteoarthritis of right knee M17.9 [facility] [id number] [place] [address] 84870- 7617 30 May, 2015 [facility] [id number] [place] [address] 45369- 4369 16 May, 2015 [facility] [id number] [place] [address] 19244- 7931 Apr, [facility] [id number] [place] [address] 62971- 7546 Apr, [facility] [id number] [place] [address] 40835- 5701 08 May, 2015 History of excessive cerumen Z78.9 ; Obstructive sleep apnea syndrome G47.33 ; History of diverticulitis Z87.19 and Nephrolithiasis N20.0 [facility] [address] [place] [address] 84073- 3184 Apr, [facility] [id number] [place] [address] 12344 -7089 Apr, Abdominal pain R10.9 [facility] [id number] [place] [address] 60577- 4603 Apr, [facility] [id number] [place] [address] 31722- 4511 Apr, Osteoarthritis of right knee M17.9 [facility] [id number] [place] [address] 14829- 9268 Mar, [facility] [address] [place] [address]- 5925 15 Mar, 2015 [facility] [id number] [place] [address] 73924- 7839 14 Mar, 2015 [facility] [id number] [place] [address] 91389- 1141 13 Mar, 2015 [facility] [id number] [place] [address] 17832 -8525 Mar, Pyelonephritis N12 ; Left-sided thoracic back pain M54.6 ; Hematuria, unspecified R31.9 and Kidney stone N20.0 [facility] [id number] [place] [address] 48571- 1898 12 Mar, 2015 History of weight loss surgery Z98.84 [facility] [id number] [place] [address] 84098- 3267 07 Mar, 2015 History of weight loss surgery Z98.84 and Hyperlipidemia, unspecified E78.5 [facility] [id number] [place] [address] 82633- 3261 Mar, Low back pain M54.5 ; Chronic prescription opiate use Z79.899 ; Hyperlipidemia, unspecified E78.5 ; Spasm of back muscles M62.830 and History of weight loss surgery Z98.84 [facility] [address] [place] [address] 50418- 2531 Jan, [facility] [id number] [place] [address] 25151- 5200 Jan, [facility] [id number] [place] [address] 47598- 1968 Jan, [facility] [id number] [place] [address] 00314- 4133 Dec, [facility] [id number] [place] [address] 74700- 2579 Dec, [facility] [id number] [place] [address] 76588- 2390 Dec, [facility] [id number] [place] [address] 94700- 1182 Nov, [facility] [id number] [place] [address] 73995- 7869 Nov, Obstructive sleep apnea syndrome G47.33 and Pharyngoesophageal dysphagia R13.14 [facility] [address] 21923- 5015 Nov, [facility] [id number] [place] [address] 84348- 2364 Nov, [facility] [address] 54444- 1051 Nov, [facility] [address] [id number] 30 Oct, 2014 Dental examination V72.2 [facility] [id number] [place] [address] 87405- 4874 Oct, [facility] [id number] [place] [address] 63719- 4185 Oct, [facility] [id number] [place] [address] 36516- 0280 Oct, [facility] [id number] [place] [address] 73661- 9890 Oct, [facility] [id number] [place] [address] 60581- 7958 Oct, BPH (benign prostatic hyperplasia) 600.00 and Urinary frequency 788.41 [facility] [id number] [place] [address] 10043- 0801 Oct, [facility] [id number] [place] [address] 86716- 2549 Oct, [facility] [id number] [place] [address] 39718- 2995 Oct, [facility] [id number] [place] [address] 87527- 0920 Sep, Cerumen impaction 380.4 ; Cerumen debris on tympanic membrane 380.4 ; Psoriasis 696.1 and MICKY (secretory otitis media) 381.4 [facility] [address] [id number] Sep, Dental examination V72.2 [facility] [address] 98660- 1279 Sep, Fatigue 780.79 ; Irritable bowel syndrome 564.1 ; Overweight 278.02 ; Poor sleep V69.4 ; Shaking spells 781.0 and Broken tooth 873.63 [facility] [id number] [place] [address] 12347- 4266 Sep, [facility] [id number] [place] [address] 22900- 0356 Sep, [facility] [id number] [place] [address] 08578- 8396 Aug, [facility] [id number] [place] [address] 02253- 4651 Jul, [facility] [id number] [place] [address] 33523- 7783 Jul, [facility] [id number] [place] [address] 99737- 8634 Jul, [facility] [id number] [place] [address] 71432362- 2543 Jul, [facility] [id number] [place] [address] 83290- 9491 June, Arthritis of knee, right 716.96 [facility] [id number] [place] [address] 70250- 0196 June, [facility] [id number] [place] [address] 80032- 3750 June, Elevated blood pressure reading without diagnosis of hypertension 796.2 [facility] [address] [id number] [place] [address]- 8698 June, [facility] [address] [id number] [place] [address]- 0420 June, [facility] [address] [facility] [id number] [place] [address]- 9467 June, [facility] [address] [id number] [place] [address] June, [facility] [address] [id number] [place] [address] May, [facility] [address] [id number] [place] [address] May, [facility] [address] [id number] [address] Apr, [facility] [address] [facility] [id number] [place] [address] Apr, [facility] [address] [facility] [id number] [place] [address] Apr, [facility] [address] [facility] [id number] [place] [address] Apr, [facility] [address] [facility] [id number], [place] [address] Apr, [facility] [address] [id number], [place] [address] Apr, [facility] [address] [id number] [place] [address] Apr, [facility] [address] [facility] [id number] [place] [address] Apr, [facility] [address] [facility] [id number] [place] [address] Apr, [facility] [place] [facility] [address] [id number] [place] [address] Apr, [facility] [place] [facility] [address] [id number] [place] [address] Apr, 2014 [facility] [place] [facility] [address] [facility] [id number] [place] [address] Apr, 2014 [facility] [place] [facility] [address] [facility] [id number] [place] [address] 24 Apr, 2014 [facility] [place] [facility] [address] [id number] [place] [address] Apr, 2014 [facility] [place] [facility] [address] [facility] [id number] [place] [address] Apr, 2014 [facility] [place] [facility] [address] [facility] [id number] [place] [address] Apr, 2014 [facility] [place] [facility] [address] [facility] [id number] [place] [address] Apr, 2014 [facility] [place] [facility] [address] [facility] [id number] [place] [address] Apr, 2014 [facility] [place] [facility] [address] [facility] [id number] [place] [address] Apr, 2014 [facility] [place] [facility] [address] [facility] [id number] [place] [address] 18 Apr, 2014 [facility] [place] [facility] [address] [facility] [facility] [id number] [place] [address] 13 Apr, 2014 [facility] [place] [facility] [address] [facility] [id number] [place] [address] 2548 13 Apr, 2014 [facility] [place] [facility] [address] [facility] [id number] [place] [address] 9613 13 Apr, 2014 [facility] [place] [facility] [address] [facility] [id number] [place] [address] 4489 13 Apr, 2014 [facility] [place] [facility] [address] [facility] [id number] [place] [address] 6994 Apr, 2014 [facility] [place] [facility] [address] [id number] [place] [address]- 5715 Apr, 2014 [facility] [place] [facility] [address] [id number] [place] [address]- 4016 Apr, 2014 [facility] [place] [facility] [address] [id number] [place] [address]- 8301 Apr, 2014 [facility] [place] [facility] [address] [id number] [place] [address]- 8167 Apr, 2014 [facility] [place] [facility] [address] [id number] [place] [address]- 8054 Apr, 2014 [facility] [place] [facility] [address] [facility] [id number] [place] [address] 1887 Apr, 2014 [facility] [place] [facility] [address] [facility] [id number] [place] [address]- 6370 Apr, 2014 [facility] [place] [facility] [address] [id number] [place] [address]- 2571 Apr, 2014 [facility] [place] [facility] [address] [facility] [id number] [place] [address]- 9027 Mar, [facility] [place] [facility] [address] [facility] [id number] [place] [address]- 2463 Mar, [facility] [place] [facility] [address] [id number] [place] [address]- 6855 Mar, [facility] [place] [facility] [address] [id number] [place] [address]- 2299 Mar, [facility] [place] [facility] [address] [id number] [place] [address]- 9762 Mar, [facility] [place] [facility] [address] [id number] [place] [address]- 4838 Mar, [facility] [place] [facility] [address] [id number] [place] [address]- 2756 Mar, [facility] [place] [facility] [address] [id number] [place] [address]- 5659 Mar, [facility] [place] [facility] [address] [id number] [place] [address]- 9597 Mar, [facility] [place] [facility] [address] [id number] [place] [address]- 6053 Mar, [facility] [place] [facility] [address] [id number] [place] [address]- 7614 Jan, [facility] [place] [facility] [address] [id number] [place] [address]- 4747 Jan, [facility] [place] [facility] [address] [id number] [place] [address]- 3640 Jan, [facility] [place] [facility] [address] [id number] [place] [address]- 6674 Jan, [facility] [place] [facility] [address] [id number] [place] [address]- 0080 Jan, [facility] [place] [facility] [address] [id number] [place] [address]- 7073 Jan, [facility] [place] [facility] [address] [id number] [place] [address]- 1232 Jan, [facility] [place] [facility] [address] [id number] [place] [address]- 9725 Jan, [facility] [place] [facility] [address] [id number], [place] [address] 8[address] Jan, [facility] [place] [facility] [address] [id number] [place] [address]- 3780 Jan, [facility] [place] [facility] [address] [id number] [place] [address]- 7958 Jan, [facility] [place] [facility] [address] [id number] [place] [address]- 4581 Jan, [facility] [place] [facility] [address] [id number] [place] [address]- 4290 Dec, [facility] [place] [facility] [address] [id number] [place] [address]- 0257 Dec, [facility] [place] [facility] [address] [id number] [place] [address]- 5342 Dec, [facility] [place] [facility] [address] [id number] [place] [address]- 9624 Dec, [facility] [place] [facility] [address] [id number] [place] [address]- 1035 Dec, [facility] [place] [facility] [address] [id number] [place] [address]- 7367 Dec, [facility] [place] [facility] [address] [id number] [place] [address]- 6108 Dec, [facility] [place] [facility] [address] [id number] [place] [address]- 4770 Dec, [facility] [place] [facility] [address] [id number] [place] [address]- 0863 Dec, [facility] [place] [facility] [address] [id number] [place] [address]- 0778 Dec, [facility] [place] [facility] [address] [facility] [id number] [place] [address]- 3883 Nov, [facility] [place] [facility] [address] [id number] [place] [address]- 1416 Nov, [facility] [place] [facility] [address] [id number] [place] [address]- 4768 Nov, [facility] [place] [facility] [address] [id number] [place] [address]- 1616 Nov, [facility] [place] [facility] [address] [id number] [place] [address]- 9433 Nov, [facility] [place] [facility] [address] [id number] [place] [address]- 2514 Nov, [facility] [place] [facility] [address] [id number] [place] [address]- 3682 Nov, [facility] [place] [facility] [address] [id number] [place] [address]- 7854 Nov, [facility] [place] [facility] [address] [id number] [place] [address]- 9252 Nov, [facility] [place] [facility] [address] [id number] [place] [address]- 6031 Nov, [facility] [place] [facility] [address] [id number] [place] [address]- 4200 Nov, [facility] [place] [facility] [address] [id number] [place] [address]- 4482 Nov, [facility] [place] [facility] [address] [id number] [place] [address]- 7100 Nov, [facility] [place] [facility] [address] [id number] [place] [address]- 5045 Nov, [facility] [place] [facility] [address] [id number] [place] [address]- 1107 Nov, [facility] [place] [facility] [address] [id number], [place] [address]- 2315 Nov, [facility] [place] [facility] [address] [id number], [place] [address]- 9609 Nov, [facility] [place] [facility] [address] [id number], [place] [address]- 2629 Nov, [facility] [place] [facility] [address] [id number] [place] [address]- 8927 Nov, [facility] [place] [facility] [address] [id number] [place] [address]- 5415 Nov, [facility] [place] [facility] [address] [id number], [place] [address]- 8327 Oct, [facility] [place] [facility] [address] [id number], [place] [address]- 3214 Oct, [facility] [place] [facility] [address] [id number] [place] [address]- 6862 Oct, 2013 [facility] [place] [facility] [address] [id number] [place] [address]- 2435 Oct, [facility] [place] [facility] [address] [id number] [place] [address]- 5551 Oct, [facility] [place] [facility] [address] [id number] [place] [address]- 2882 Oct, 2013 [facility] [place] [facility] [address] [id number] [place] [address]- 5724 Oct, [facility] [place] [facility] [address] [id number] [place] [address]- 7590 Oct, [facility] [place] [facility] [address] [id number] [place] [address]- 6808 Oct, [facility] [place] [facility] [address] [id number] [place] [address]- 8653 Oct, [facility] [place] [facility] [address] [id number] [place] [address]- 2481 Sep, [facility] [place] [facility] [address] [id number] [place] [address]- 0428 Sep, [facility] [place] [facility] [address] [id number] [place] [address]- 3338 Sep, [facility] [place] [facility] [address] [id number] [place] [address]- 9881 Sep, [facility] [place] [facility] [address] [id number] [place] [address]- 5121 Sep, [facility] [place] [facility] [address] [id number] [place] [address]- 8580 Sep, [facility] [place] [facility] [address] [id number] [place] [address]- 1417 Sep, [facility] [place] [facility] [address] [id number] [place] [address]- 9478 Sep, [facility] [place] [facility] [address] [id number] [place] [address]- 6556 Sep, [facility] [place] [facility] [address] [id number] [place] [address]- 0411 Sep, [facility] [place] [facility] [address] [id number] [place] [address]- 8088 Sep, [facility] [place] [facility] [address] [id number] [place] [address]- 8489 Sep, [facility] [place] [facility] [address] [id number] [place] [address]- 6160 Sep, [facility] [place] [facility] [address] [id number] [place] [address]- 2879 Sep, [facility] [place] [facility] [address] [id number] [place] [address]- 6418 Sep, [facility] [place] [facility] [address] [id number] [place] [address]- 0048 Sep, [facility] [place] [facility] [address] [id number] [place] [address]- 5905 Sep, [facility] [place] [facility] [address] [id number] [place] [address]- 1031 Sep, [facility] [place] [facility] [address] [id number] [place] [address]- 1324 Sep, [facility] [place] [facility] [address] [id number] [place] [address]- 6256 Sep, [facility] [place] [facility] [address] [id number] [place] [address]- 7514 Sep, [facility] [place] [facility] [address] [id number] [place] [address]- 8809 Sep, [facility] [place] [facility] [address] [id number] [place] [address]- 7666 Sep, [facility] [place] [facility] [address] [id number] [place] [address]- 6041 Sep, [facility] [place] [facility] [address] [id number] [place] [address]- 2372 Sep, [facility] [place] [facility] [address] [id number] [place] [address]- 6754 Aug, [facility] [place] [facility] [address] [id number] [place] [address]- 7354 Aug, [facility] [place] [facility] [address] [id number] [place] [address]- 5708 Aug, [facility] [place] [facility] [address] [id number] [place] [address]- 2190 Aug, [facility] [place] [facility] [address] [id number] [place] [address]- 6646 Aug, [facility] [place] [facility] [address] [id number] [place] [address]- 0917 Aug, [facility] [place] [facility] [address] [id number] [place] [address]- 2488 Aug, [facility] [place] [facility] [address] [id number] [place] [address]- 7837 Aug, [facility] [place] [facility] [address] [id number] [place] [address]- 5200 Aug, [facility] [place] [facility] [address] [id number] [place] [address]- 6290 Aug, [facility] [place] [facility] [address] [id number] [place] [address]- 6587 Aug, [facility] [place] [facility] [address] [id number] [place] [address]- 3288 Aug, [facility] [place] [facility] [address] [id number] [place] [address]- 0136 Aug, [facility] [place] [facility] [address] [id number] [place] [address]- 0439 Jul, [facility] [place] [facility] [address] [id number] [place] [address]- 7919 Jul, [facility] [place] [facility] [address] [id number] [place] [address]- 4464 Jul, [facility] [place] [facility] [address] [id number] [place] [address]- 4902 Jul, [facility] [place] [facility] [address] [id number] [place] [address]- 9896 Jul, [facility] [place] [facility] [address] [id number] [place] [address]- 9778 Jul, [facility] [place] [facility] [address] [id number] [place] [address]- 0073 Jul, [facility] [place] [facility] [address] [id number] [place] [address]- 1065 June, [facility] [place] [facility] [address] [id number] [place] [address]- 0649 June, [facility] [place] [facility] [address] [id number] [place] [address]- 6286 June, [facility] [place] [facility] [address] [id number] [place] [address]- 7242 June, [facility] [place] [facility] [address] [id number] [place] [address]- 7966 May, [facility] [place] [facility] [address] [id number] [place] [address]- 2307 May, [facility] [place] [facility] [address] [id number] [place] [address]- 5149 May, [facility] [place] [facility] [address] [id number] [place] [address]- 9388 May, [facility] [place] [facility] [address] [id number] [place] [address]- 2022 May, [facility] [place] [facility] [address] [id number] [place] [address]- 9513 May, [facility] [place] [facility] [address] [id number] [place] [address]- 7045 May, [facility] [place] [facility] [address] [id number] [place] [address]- 8803 May, [facility] [place] [facility] [address] [id number] [place] [address]- 4278 May, [facility] [place] [facility] [address] [id number] [place] [address]- 9294 May, [facility] [place] [facility] [address] [id number] [place] [address]- 2810 Apr, [facility] [place] [facility] [address] [id number] [place] [address]- 2387 Apr, [facility] [place] [facility] [address] [id number] [place] [address]- 4420 Apr, [facility] [place] [facility] [address] [id number] [place] [address]- 7591 Apr, [facility] [place] [facility] [address] [id number] [place] [address]- 3982 Apr, [facility] [place] [facility] [address] [id number] [place] [address]- 9780 Apr, [facility] [place] [facility] [address] [id number] [place] [address]- 4622 Apr, [facility] [place] [facility] [address] [id number] [place] [address]- 2840 Apr, [facility] [place] [facility] [address] [id number] [place] [address]- 3219 Apr, [facility] [place] [facility] [address] [id number] [place] [address]- 0218 Apr, [facility] [place] [facility] [address] [id number] [place] [address]- 6779 Mar, [facility] [address] [id number] [place] [address]- 2720 Mar, [facility] [place] [facility] [address] [id number] [place] [address]- 3249 Mar, [facility] [place] [facility] [address] [id number] [place] [address]- 6684 Mar, [facility] [place] [facility] [address] [id number] [place] [address]- 6641 Mar, [facility] [place] [facility] [address] [id number] [place] [address]- 7779 Mar, [facility] [place] [facility] [address] [id number] [place] [address]- 6439 Jan, [facility] [address] [id number] [place] [address]- 2876 Jan, [facility] [place] [facility] [address] [id number] [place] [address]- 4115 Jan, [facility] [place] [facility] [address] [id number] [place] [address]- 4006 Jan, [facility] [place] [facility] [address] [facility] [id number] [place] [address]- 4596 Jan, [facility] [place] [facility] [address] [id number] [place] [address]- 0207 Jan, [facility] [place] [facility] [address] [id number] [place] [address]- 0492 Jan, [facility] [place] [facility] [address] [id number] [place] [address]- 4255 Jan, [facility] [place] [facility] [address] [id number] [place] [address]- 3658 Jan, [facility] [place] [facility] [address] [id number] [place] [address]- 6007 Dec, [facility] [place] [facility] [address] [id number] [place] [address]- 8604 Dec, [facility] [place] [facility] [address] [id number] [place] [address]- 9109 Dec, [facility] [place] [facility] [address] [id number] [place] [address]- 5774 Dec, [facility] [place] [facility] [address] [id number] [place] [address]- 4059 Dec, [facility] [place] [facility] [address] [id number] [place] [address]- 6972 Dec, [facility] [place] [facility] [address] [id number] [place] [address]- 7158 Dec, [facility] [place] [facility] [address] [id number] [place] [address]- 0217 Dec, [facility] [place] [facility] [address] [id number] [place] [address]- 2418 Dec, [facility] [place] [facility] [address] [id number] [place] [address]- 3622 Dec, [facility] [place] [facility] [address] [id number] [place] [address]- 3008 Dec, [facility] [place] [facility] [address] [id number] [place] [address]- 4065 Nov, [facility] [place] [facility] [address] [id number] [place] [address]- 2901 Nov, [facility] [place] [facility] [address] [id number] [place] [address]- 0437 Nov, [facility] [place] [facility] [address] [id number] [place] [address]- 0300 Nov, [facility] [place] [facility] [address] [id number] [place] [address]- 4464 Nov, [facility] [place] [facility] [address] [id number] [place] [address]- 3266 Oct, [facility] [address] [id number] [place] [address]- 4095 Oct, [facility] [place] [facility] [address] [id number] [place] [address]- 6886 Sep, [facility] [place] [facility] [address] [id number] [place] [address]- 9757 Aug, [facility] [place] [facility] [address] [id number] [place] [address]- 6716 Aug, [facility] [address] [id number] [place] [address]- 6720 Aug, [facility] [place] [facility] [address] [id number] [place] [address]- 9706 Aug, [facility] [place] [facility] [address] [id number] [place] [address]- 7809 Jul, [facility] [place] [facility] [address] [id number] [place] [address]- 9843 Jul, [facility] [place] [facility] [address] [id number] [place] [address]- 8398 June, [facility] [place] [facility] [address] [id number] [place] [address]- 9246 June, [facility] [place] [facility] [address] [id number] [place] [address]- 0576 June, [facility] [place] [facility] [address] [id number] [place] [address]- 254 May, [facility] [place] [facility] [address] [id number] [place] [address]- 2543 May, [facility] [place] [facility] [address] [id number] [place] [address]- 2546 May, [facility] [place] [facility] [address] [id number] [place] [address]- 2546 Apr, [facility] [place] [facility] [address] [id number] [place] [address]- 9062 18 Apr, 2012 [facility] [address] [id number] [place] [address]- 2039 15 Apr, 2012 [facility] [place] [facility] [address] [id number] [place] [address] 2546 14 Apr, 2012 [facility] [place] [facility] [address] [id number] [place] [address] 12 Apr, 2012 [facility] [place] [facility] [address] [id number] [place] [address] 2549 27 Apr, 2012 [facility] [place] [facility] [address] [id number] [place] [address] Apr, [facility] [place] [facility] [address] [id number] [place] [address] Apr, [facility] [place] [facility] [address] [id number] [place] [address] Apr, [facility] [place] [facility] [address] [id number] [place] [address] 20 Apr, 2012 [facility] [place] [facility] [address] [id number] [place] [address] 19 Apr, 2012 [facility] [place] [facility] [address] [facility] [id number] [place] [address] Apr, [facility] [place] [facility] [address] [id number] [place] [address] 07 Apr, 2012 [facility] [place] [facility] [address] [id number] [place] [address] Mar, [facility] [place] [facility] [address] [id number] [place] [address] 2544 23 Mar, 2012 [facility] [place] [facility] [address] [id number] [place] [address] 16 Mar, 2012 [facility] [place] [facility] [address] [id number] [place] [address] Mar, [facility] [address] [id number] [place] [address] Mar, [facility] [place] [facility] [address] [id number] [place] [address] Jan, [facility] [place] [facility] [address] [id number] [place] [address]6 Jan, [facility] [place] [facility] [address] [id number] [place] [address] Jan, [facility] [place] [facility] [address] [id number] [place] [address]- [address]101 Jan, [facility] [place] [facility] [address] [id number] [place] [address] 6532 14 Jan, 2012 [facility] [place] [facility] [address] [id number] [place] [address]- 9336 Jan, [facility] [place] [facility] [address] [id number] [place] [address]- 6325 Jan, [facility] [place] [facility] [address] [id number] [place] [address]- 9[address] Jan, [facility] [place] [facility] [address] [id number] [place] [address] Jan, [facility] [place] [facility] [address] [id number] [place] [address]- 4393 Jan, [facility] [place] [facility] [address] [id number], [place] [address] 04 Jan, 2012 [facility] [place] [facility] [address] [id number] [place] [address]- 7056 Jan, [facility] [place] [facility] [address] [id number] [place] [address]- [address]12 Jan, [facility] [place] [facility] [address] [id number] [place] [address]- [address]386 Jan, [facility] [place] [facility] [address] [id number] [place] [address]- [address]45 26 Jan, 2012 [facility] [place] [facility] [address] [id number] [place] [address]- 5478 26 Jan, 2012 [facility] [place] [facility] [address] [id number] [place] [address]- 2066 19 Jan, 2012 [facility] [place] [facility] [address] [id number] [place] [address] 9215 19 Jan, 2012 [facility] [place] [facility] [address] [id number] [place] [address]- 4265 15 Jan, 2012 [facility] [place] [facility] [address] [id number] [place] [address]- 7513 15 Jan, 2012 [facility] [place] [facility] [address] [id number] [place] [address] 2689 14 Jan, 2012 [facility] [place] [facility] [address] [id number] [place] [address] 9396 14 Jan, 2012 [facility] [place] [facility] [address] [id number] [place] [address]- 7008 14 Jan, 2012 [facility] [place] [facility] [address] [id number] [place] [address]- 6240 14 Jan, 2012 [facility] [place] [facility] [address] [id number] [place] [address] 9270 07 Jan, 2012 [facility] [place] [facility] [address] [id number] [place] [address]- 7493 07 Jan, 2012 [facility] [place] [facility] [address] [id number], [place] [address] 16 Dec, 2011 [facility] [place] [facility] [address] [id number] [place] [address] 4816 16 Dec, 2011 [facility] [place] [facility] [address] [id number] [place] [address]- [address]99 13 Nov, 2011 [facility] [place] [facility] [address] [id number] [place] [address]- 4312 13 Nov, 2011 [facility] [place] [facility] [address] [id number] [place] [address]- 7542 13 Nov, 2011 [facility] [place] [facility] [address] [id number] [place] [address]- 7936 12 Nov, 2011 [facility] [place] [facility] [address] [id number] [place] [address]- 1456 Sep, [facility] [place] [facility] [address] [id number] [place] [address] 2546 Sep, [facility] [place] [facility] [address] [id number] [place] [address]- 5192 Aug, [facility] [place] [facility] [address] [id number] [place] [address]- 3549 Aug, [facility] [place] [facility] [address] [id number] [place] [address]- 9224 Aug, [facility] [place] [facility] [address] [id number] [place] [address]- 6780 Aug, [facility] [place] [facility] [address] [id number] [place] [address]- 3832 June, [facility] [place] [facility] [address] [id number] [place] [address]- 7989 June, [facility] [place] [facility] [address] [id number] [place] [address] 9872 May, [facility] [place] [facility] [address] [id number] [place] [address]- 3229 Apr, [facility] [place] [facility] [address] [id number] [place] [address]- 7434 Apr, [facility] [place] [facility] [address] [id number] [place] [address]- 3546 Apr, [facility] [place] [facility] [address] [id number] [place] [address]- 2546 Apr, [facility] [place] [facility] [address] [id number], [place] [address]57 Apr, [facility] [address] [id number] [place] [address]- 3693 Apr, [facility] [place] [facility] [address] [id number] [place] [address]- 8544 Mar, [facility] [address] [facility] [id number] [place] [address]- 9937 Mar, [facility] [place] [facility] [address] [id number] [place] [address]- 3598 Mar, [facility] [address] [facility] [id number] [place] [address], [place] [address]- 6377 Jan, [facility] [place] [facility] [address] [facility] [id number] [place] [address]- 7857 Jan, [facility] [address] [facility] [id number] [place] [address]- 5160 Jan, [facility] [place] [facility] [address] [facility] [id number] [place] [address]- 5707 Jan, [facility] [address] [facility] [id number] [place] [address]- 8337 Jan, [facility] [place] [facility] [address] [facility] [id number] [place] [address]- 5183 Jan, [facility] [address] [facility] [id number] [place] [address]- 1742 Jan, [facility] [place] [facility] [address] [facility] [id number], [place] [address] Dec, [facility] [place] [facility] [address] [id number], [place] [address] Dec, [facility] [place] [facility] [address] [facility] [id number], [place] [address] Nov, [facility] [place] [facility] [address] [facility] [id number], [place] [address] Nov, [facility] [place] [facility] [address] [id number] [place] [address] 12 Nov, 2010 [facility] [place] [facility] [address] [id number] [place] [address] 12 Nov, 2010 [facility] [place] [facility] [address] [id number] [place] [address] Oct, [facility] [place] [facility] [address] [id number] [place] [address] Sep, [facility] [place] [facility] [address] [id number] [place] [address] Mar, [facility] [place] [facility] [address] [id number] [place] [address] Jan, [facility] [place] [facility] [address] [id number] [place] [address] Dec, [facility] [place] [facility] [address] [id number] [place] [address] Dec, [facility] [place] [facility] [address] [id number] [place] [address] Dec, [facility] [place] [facility] [address] [id number] [place] [address] Dec, [facility] [place] [facility] [address] [id number] [place] [address] 26 Nov, 2009 [facility] [place] [facility] [address] [id number] [place] [address] 15 Nov, 2009 [facility] [place] [facility] [address] [id number] [place] [address] 14 Nov, 2009 [facility] [place] [facility] [address] [id number] [place] [address] 14 Nov, 2009 [facility] [place] [facility] [address] [id number] [place] [address] 13 Oct, 2009 [facility] [place] [facility] [address] [id number] [place] [address] Jul, [facility] [id number], [place] [address] June, [facility] [id number], [place] [address] June, [facility] [id number], [place] [address] Apr, [facility] [id number] [place] [address] Mar, [facility] [id number], [place] [address] Jan, [facility] [id number] [place] [address] Jan, [facility] [id number] [place] [address] Dec, [facility] [id number], [place] [address] Dec, [facility] [id number], [place] [address] Dec, [facility] [id number] [address] Dec, [facility] [id number], [place] [address] Nov, [facility] [id number], [place] [address] Jul, [facility] [id number], [place] [address] June, IMMUNIZATIONS No Known Immunizations SOCIAL HISTORY Never Assessed REASON FOR VISIT Medication refill request PLAN OF CARE VITAL SIGNS MEDICATIONS [...] tolerate CPAP Medical History oxygen dependent at [facility] Medical History colonic polyps [...]
--- OUTSIDE RECORDS SUMMARY | 2018-02-26 18:56 | XMS REPORT ---
Author Author CHRIS STEVENSON [facility] Address [address] [place] [address] Care Team Providers Care Special Education Professor Name Role Phone GRAHAMELLIOTT HANNAHANY Unavailable PROBLEMS Type Condition ICD9-CM Code JMD90-US Code Onset Dates Condition Status SNOMED Code Problem Pulmonary asbestosis J61 Active 16274527 Problem Left ventricular diastolic dysfunction I51.9 Active 625836947 Problem Chronic gout, unspecified cause, unspecified site [id number] Active 23921937 Problem Renal cyst, left N28.1 Active 51413555 Problem History of weight loss surgery Z98.84 Active 101981629 Problem Nocturnal hypoxia G47.34 Active 284000840 Problem Obstructive sleep apnea syndrome G47.33 Active 07672643 Problem History of diverticulitis Z87.19 Active [id number] Problem Allergic rhinitis, unspecified allergic rhinitis type J30.9 Active 17920532 Problem Erectile dysfunction due to diseases classified elsewhere N52.1 Active 686460534 Problem Acute right-sided low back pain with right-sided sciatica M54.41 Active 302622344 Problem Psoriasis L40.9 Active 2592279 Problem Essential hypertension I10 Active 14089952 Problem Nephrolithiasis N20.0 Active 17466377 Problem Chronic prescription opiate use Z79.899 Active 765729606 Problem 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 Active 93052062 Problem Benign prostatic hyperplasia, presence of lower urinary tract symptoms unspecified, unspecified morphology N40.0 Active 433246527 Problem Moderate episode of recurrent major depressive disorder F33.1 Active 454346599 Problem Age-related osteoporosis without current pathological fracture M81.0 Active 38233129 Problem Low back pain M54.5 Active 947256223 Problem Anxiety F41.9 Active 09613114 Problem Urge incontinence N39.41 Active 479629326 Problem Hyperlipidemia, unspecified E78.5 Active 50174835 Problem Esophageal stricture K22.2 Active 52494795 Problem Cervicalgia M54.2 Active 2654915410941 Problem Primary insomnia F51.01 Active 502096634 ALLERGIES No Information ENCOUNTERS Encounter Location Date Diagnosis [facility] [id number] [place] [address] 32827- 1836 Oct, [facility] [id number] [address] 43901- 9635 Sep, [facility] [address] 66177- 4591 Sep, Anxiety F41.9 [facility] [address] 58272- 7138 Sep, [facility] [address] 82666- 8449 Aug, [facility] [address] 83883- 3008 Aug, [facility] [address] 62281- 8870 Aug, Anxiety F41.9 [facility] [id number] [address] 90242- 2598 Aug, [facility] [id number] [address] 83093- 3890 Jul, [facility] [id number] [address] 02175- 9302 Jul, Anxiety F41.9 [facility] [address] 55634- 1912 June, Anxiety F41.9 [facility] [id number] [address] 98129- 0195 June, [facility] [address] 98450- 3673 June, Low back pain M54.5 ; Chronic prescription opiate use Z79.899 ; Candidal intertrigo B37.2 ; Urge incontinence N39.41 ; Essential hypertension I10 ; Moderate episode of recurrent major depressive disorder F33.1 ; Age-related osteoporosis without current pathological fracture M81.0 and BMI 45.0-49.9, adult Z68.42 [facility] [id number] [address] 71977- 2587 June, [facility] [id number] [place] [address] 42063- 6563 May, Anxiety F41.9 [facility] [address] 97199- 8128 May, [facility] [address] 79896- 1814 May, [facility] [id number] [address] 76620- 0339 Apr, Anxiety F41.9 [facility] [address] 49137- 8383 Apr, [facility] [id number] [address] 07665- 3350 Apr, Low back pain M54.5 [facility] [id number] [address] 22773- 7792 Apr, [facility] [id number] [address] 89564- 2222 Apr, [facility] [id number] [address] 07793- 8766 Apr, Anxiety F41.9 [facility] [id number] [address] 20918- 254 Apr, Right groin pain R10.31 [facility] [id number] [address] 71013- 7645 Mar, [facility] [id number] [address] 43312- 7457 Mar, [facility] [id number] [address] 45985- 8832 Mar, Anxiety F41.9 [facility] [address] 98298- 6633 Mar, Low back pain M54.5 [facility] [id number] [address] 52133- 8523 Mar, Right groin pain R10.31 ; Low back pain M54.5 and BMI 45.0- 49.9, adult Z68.42 [facility] [id number] [place] [address] 25553- 6911 Mar, [facility] [id number] [address] 82160- 9212 Mar, [facility] [id number] [address] 01935- 2014 Mar, [facility] [id number] [place] [address] 65591 -9464 Mar, [facility] [id number] [place] [address] 10839 -3207 Mar, Cough R05 ; Pneumonia of right lower lobe due to infectious organism J18.1 and Abnormal chest x-ray R93.8 [facility] [id number] [address] 07550- 4376 Mar, [facility] [id number] [address] 47357- 2572 Mar, [facility] [id number] [address] 19623- 9981 Jan, Anxiety F41.9 [facility] [id number] [address] 35491- 9767 Jan, [facility] [id number] [address] 20530- 5186 Jan, Moderate episode of recurrent major depressive disorder F33.1 [facility] [id number] [place] [address] 90974- 9124 Jan, Subacromial bursitis of right shoulder joint M75.51 ; Shortness of breath on exertion R06.02 and BMI 45.0-49.9, adult Z68.42 [facility] [id number] [address] 81520- 1331 Dec, Anxiety F41.9 [facility] [address] 60288- 5666 Dec, [facility] [id number] [address] 17222- 5150 Dec, Low back pain M54.5 [facility] [id number] [address] 02496- 6097 Oct, Low back pain M54.5 [facility] [id number] [address] 16833- 2308 Sep, [facility] [id number] [address] 37872- 0299 Sep, Erectile dysfunction due to diseases classified elsewhere N52.1 [facility] [id number] [address] 28271- 5808 Sep, Erectile dysfunction due to diseases classified elsewhere N52.1 [facility] [id number] [address] 05736- 8986 Sep, [facility] [id number] [address] 74095- 0859 Sep, Erectile dysfunction due to diseases classified elsewhere N52.1 [facility] [id number] [address] 30109- 3008 Sep, Low back pain M54.5 and Anxiety F41.9 [facility] [id number] [address] 84571 -8106 Aug, Acute allergic rhinitis J30.9 [facility] [id number] [address] 54114- 5121 Aug, [facility] [id number] [address] 78006- 4615 Aug, Anxiety F41.9 [facility] [id number] [address] 02601- 3172 15 Jul, 2016 Low back pain M54.5 ; Chronic prescription opiate use Z79.899 and Essential hypertension I10 [facility] [id number] [address] 59644- 1466 Jul, Anxiety F41.9 and Low back pain M54.5 [facility] [id number] [address] 03392- 6606 June, [facility] [id number] [address] 20703- 4136 June, Anxiety F41.9 [facility] [id number] [address] 33332- 6106 May, Low back pain M54.5 [facility] [id number] [address] 91339- 9803 May, [facility] [id number] [address] 16375- 5657 May, Anxiety F41.9 [facility] [id number] [address] 25154- 0875 Apr, [facility] [id number] [address] 14883- 2548 Apr, Low back pain M54.5 [facility] [id number] [address] 99946- 2152 Apr, Moderate episode of recurrent major depressive disorder F33.1 [facility] [id number] [address] 31554- 9616 Apr, Anxiety F41.9 [facility] [address] [place] [address]- 9204 Apr, Low back pain M54.5 [facility] [id number] [address] 35603- 6328 15 Apr, 2016 Elevated alkaline phosphatase level R74.8 [facility] [id number] [address] 83860- 4944 10 Apr, 2016 Alkaline phosphatase elevation R74.8 [facility] [id number] [address] 64546- 7464 06 Apr, 2016 Anxiety F41.9 [facility] [id number] [address] 91305- 6658 Apr, Low back pain M54.5 [facility] [id number] [address] 11377- 0867 Apr, History of weight loss surgery Z98.84 ; Encounter for hepatitis C screening test for low risk patient Z11.59 ; History of herpes genitalis Z86.19 ; Essential hypertension I10 ; Hyperlipidemia, unspecified E78.5 ; Exposure to STD Z20.2 and Benign prostatic hyperplasia, presence of lower urinary tract symptoms unspecified, unspecified morphology N40.0 [facility] [id number] [address] 55506- 7373 Apr, [facility] [id number] [place] [address] 14450- 5144 Mar, [facility] [id number] [address] 07492- 9960 Mar, [facility] [id number] [address] 47812- 7231 Mar, [facility] [id number] [address] 34488- 4888 Mar, Acute right-sided low back pain with right-sided sciatica M54.41 [facility] [id number] [address] 61476- 7657 Mar, Low back pain M54.5 [facility] [id number] [place] [address] 73345 -5580 Mar, Muscle strain of chest wall, initial encounter S29.011A ; Muscle strain of right thigh, initial encounter S76.911A and Acute non- recurrent maxillary sinusitis J01.00 [facility] [address] 04694- 0610 Mar, Benign prostatic hyperplasia, presence of lower urinary tract symptoms unspecified, unspecified morphology N40.0 [facility] [id number] [address] 93761- 8966 Jan, Low back pain M54.5 [facility] [id number] [address] 08397- 2043 Jan, Low back pain M54.5 ; Essential hypertension I10 ; Hyperlipidemia, unspecified E78.5 ; Anxiety F41.9 ; Moderate episode of recurrent major depressive disorder F33.1 ; Primary insomnia F51.01 ; Exposure to STD Z20.2 ; Encounter for hepatitis C screening test for low risk patient Z11.59 and History of herpes genitalis Z86.19 [facility] [id number] [place] [address] 23926- 0921 Dec, [facility] [id number] [address] 02875- 3581 Nov, [facility] [id number] [address] 42541- 3961 Nov, Anxiety F41.9 ; Cervicalgia M54.2 ; Moderate episode of recurrent major depressive disorder F33.1 and Encounter for immunization Z23 [facility] [address] 46162- 6629 Oct, [facility] [id number] [address] 21826- 5732 Oct, [facility] [address] 90092- 2534 16 Nov, 2015 [facility] [address] [address]- 1292 Oct, [facility] [id number] [address] 08620- 2636 Sep, [facility] [id number] [address] 91405- 7829 Aug, Low back pain M54.5 ; Anxiety F41.9 ; Primary insomnia F51.01 and Chronic prescription opiate use Z79.899 [facility] [id number] [place] [address] 90135- 2475 Jul, [facility] [id number] [address] 41991- 2063 Jul, [facility] [id number] [address] 70011- 1817 Jul, [facility] [id number] [address] 98430- 9741 Jul, [facility] [id number] [place] [address] 54602- 1958 Jul, [facility] [id number] [address] 58642- 3607 June, [facility] [id number] [address] 70672- 0517 June, [facility] [id number] [address] 06916- 5468 June, [facility] [id number] [address]- 3648 June, [facility] [id number] [address] 70593- 2189 May, Preoperative cardiovascular examination Z01.810 [facility] [address] [address]- 7400 May, [facility] [id number] [address]- 8050 31 May, 2015 [facility] [id number] [address] 99729- 0450 31 May, 2015 Osteoarthritis of right knee M17.9 [facility] [address] [address]- 4654 30 May, 2015 [facility] [id number] [address] 22237- 6055 16 May, 2015 [facility] [id number] [place] [address] 83865- 6477 11 May, 2015 [facility] [id number] [address] 91286- 8089 09 May, 2015 [facility] [id number] [place] [address] 41188- 4335 08 May, 2015 History of excessive cerumen Z78.9 ; Obstructive sleep apnea syndrome G47.33 ; History of diverticulitis Z87.19 and Nephrolithiasis N20.0 [facility] [address] [address]- 5421 29 Apr, 2015 [facility] [id number] [address] -2482 23 Apr, 2015 Abdominal pain R10.9 [facility] [address] [address]- 8801 Apr, [facility] [address] [address]- 3139 04 Apr, 2015 Osteoarthritis of right knee M17.9 [facility] [id number] [address]- 7516 Mar, [facility] [id number] [address]- 1322 15 Mar, 2015 [facility] [id number] [place] [address] 79109- 2915 14 Mar, 2015 [facility] [id number] [place] [address] 45716- 7631 Mar, [facility] [id number] [place] [address] 62729 -9520 Mar, Pyelonephritis N12 ; Left-sided thoracic back pain M54.6 ; Hematuria, unspecified R31.9 and Kidney stone N20.0 [facility] [id number] [place] [address] 19530- 2539 Mar, History of weight loss surgery Z98.84 [facility] [id number] [place] [address] 50778- 7737 07 Mar, 2015 History of weight loss surgery Z98.84 and Hyperlipidemia, unspecified E78.5 [facility] [id number] [place] [address] 29357- 0962 Mar, Low back pain M54.5 ; Chronic prescription opiate use Z79.899 ; Hyperlipidemia, unspecified E78.5 ; Spasm of back muscles M62.830 and History of weight loss surgery Z98.84 [facility] [id number] [place] [address] 90638- 7050 Jan, [facility] [id number] [place] [address] 45940- 3894 Jan, [facility] [id number] [place] [address] 45915- 1591 Jan, [facility] [id number] [address] 99615- 2043 Dec, [facility] [id number] [place] [address] 38159- 9784 Dec, [facility] [id number] [address] 89297- 8943 Dec, [facility] [id number] [place] [address] 19284- 3806 Nov, [facility] [id number] [place] [address] 91815- 9727 Nov, Obstructive sleep apnea syndrome G47.33 and Pharyngoesophageal dysphagia R13.14 [facility] [id number] [place] [address] 09678- 6938 Nov, [facility] [id number] [place] [address] 37239- 8148 Nov, [facility] [id number] [place] [address] 86620- 1299 Nov, [facility] [id number] [place] [address] [id number] 30 Oct, 2014 Dental examination V72.2 [facility] [id number] [place] [address] 31943- 8110 Oct, [facility] [id number] [place] [address] 80857- 6510 Oct, [facility] [id number] [place] [address] 50300- 8194 Oct, [facility] [id number] [place] [address] 68086- 1796 Oct, [facility] [id number] [place] [address] 12599- 4861 Oct, BPH (benign prostatic hyperplasia) 600.00 and Urinary frequency 788.41 [facility] [id number] [place] [address] 58462- 2417 Oct, [facility] [id number] [place] [address] 42752- 6084 Oct, [facility] [id number] [place] [address] 12878- 7969 Oct, [facility] [id number] [place] [address] 46404- 9092 Sep, Cerumen impaction 380.4 ; Cerumen debris on tympanic membrane 380.4 ; Psoriasis 696.1 and MICKY (secretory otitis media) 381.4 [facility] [id number] [id number] Sep, Dental examination V72.2 [facility] [id number] [place] [address] [id number]- 4648 Sep, Fatigue 780.79 ; Irritable bowel syndrome 564.1 ; Overweight 278.02 ; Poor sleep V69.4 ; Shaking spells 781.0 and Broken tooth 873.63 [facility] [id number] [place] [address] [id number]- 9764 Sep, [facility] [address] [id number] Sep, [facility] [id number] [place] [address] 96673- 2791 Aug, [facility] [id number] [place] [address] 29493- 1241 Jul, [facility] [id number] [place] [address] 96306- 4946 Jul, [facility] [id number] [place] [address] [id number] Jul, [facility] [id number] [address] 25880- 2447 Jul, [facility] [id number] [place] [address] [id number] June, Arthritis of knee, right 716.96 [facility] [id number] [place] [address] 40434- 0035 June, [facility] [address] [id number] June, Elevated blood pressure reading without diagnosis of hypertension 796.2 [facility] [address] [id number] June, [facility] [place] [facility] [address] [id number] [place] [address]- 0655 June, [facility] [place] [facility] [address] [id number] [place] [address]- 8842 June, [facility] [place] [facility] [address] [id number] [place] [address]- 1486 June, [facility] [place] [facility] [address] [id number] [place] [address]- 4082 May, [facility] [place] [facility] [address] [id number] [place] [address]- 1882 May, [facility] [place] [facility] [address] [id number] [place] [address]- 0652 Apr, [facility] [place] [facility] [address] [id number] [place] [address]- 8239 Apr, [facility] [place] [facility] [address] [id number] [place] [address]- 8481 Apr, [facility] [place] [facility] [address] [id number] [place] [address]- 2722 Apr, [facility] [place] [facility] [address] [id number] [place] [address]- 3099 Apr, [facility] [place] [facility] [address] [id number] [place] [address]- 8501 Apr, [facility] [place] [facility] [address] [id number] [address]- 1538 Apr, [facility] [place] [facility] [address] [id number] [place] [address]- 6852 Apr, [facility] [place] [facility] [address] [id number] [place] [address]- 9518 Apr, [facility] [place] [facility] [address] [id number] [place] [address]- 1695 Apr, [facility] [place] [facility] [address] [id number] [place] [address]- 1679 27 Apr, 2014 [facility] [place] [facility] [address] [facility] [id number] [place] [address]- 3843 Apr, 2014 [facility] [place] [facility] [address] [facility] [id number] [place] [address]- 2546 24 Apr, 2014 [facility] [place] [facility] [address] [facility] [id number] [place] [address]- 5666 24 Apr, 2014 [facility] [place] [facility] [address] [facility] [id number] [place] [address]- 2549 23 Apr, 2014 [facility] [place] [facility] [address] [facility] [id number] [place] [address]- 5581 23 Apr, 2014 [facility] [place] [facility] [address] [id number] [place] [address]- 3235 20 Apr, 2014 [facility] [place] [facility] [address] [id number] [place] [address]- 9295 20 Apr, 2014 [facility] [place] [facility] [address] [facility] [id number] [place] [address]18 18 Apr, 2014 [facility] [place] [facility] [address] [id number] [place] [address] 1746 18 Apr, 2014 [facility] [place] [facility] [address] [id number] [place] [address] 2357 13 Apr, 2014 [facility] [place] [facility] [address] [facility] [id number], [place] [address] 2543 13 Apr, 2014 [facility] [place] [facility] [address] [facility] [id number] [place] [address]- 8792 13 Apr, 2014 [facility] [place] [facility] [address] [facility] [id number] [place] [address]- 7823 13 Apr, 2014 [facility] [place] [facility] [address] [facility] [id number] [place] [address]- 4004 12 Apr, 2014 [facility] [place] [facility] [address] [id number] [address] 7707 Apr, 2014 [facility] [place] [facility] [address] [id number] [place] [address]- 8316 Apr, 2014 [facility] [place] [facility] [address] [id number] [place] [address] Apr, 2014 [facility] [place] [facility] [address] [id number] [place] [address]- 9636 Apr, 2014 [facility] [place] [facility] [address] [id number] [place] [address]- 2394 Apr, 2014 [facility] [place] [facility] [address] [id number] [place] [address]- 6420 Apr, 2014 [facility] [place] [facility] [address] [facility] [id number] [place] [address]- 8756 Apr, 2014 [facility] [place] [facility] [address] [facility] [id number] [place] [address]- 8581 Apr, 2014 [facility] [place] [facility] [address] [facility] [id number] [place] [address]- 0841 Mar, [facility] [place] [facility] [address] [id number] [place] [address]- 4836 Mar, [facility] [place] [facility] [address] [facility] [id number] [place] [address]- 8869 Mar, [facility] [place] [facility] [address] [id number] [place] [address]- 8005 Mar, [facility] [place] [facility] [address] [id number], [place] [address] 8241 Mar, [facility] [place] [facility] [address] [id number] [place] [address]- 9204 Mar, [facility] [place] [facility] [address] [facility] [id number] [place] [address]- 2873 Mar, [facility] [place] [facility] [address] [id number] [place] [address]- 2910 Mar, [facility] [place] [facility] [address] [id number] [place] [address]- 3002 Mar, [facility] [place] [facility] [address] [id number] [place] [address]- 4438 Mar, [facility] [place] [facility] [address] [id number] [place] 0366 Jan, [facility] [place] [facility] [address] [id number] [place] [address]- 6175 Jan, [facility] [place] [facility] [address] [id number] [place] [address]- 5559 Jan, [facility] [place] [facility] [address] [id number] [place] [address]- 2940 Jan, [facility] [place] [facility] [address] [id number] [place] [address]- 3373 Jan, [facility] [place] [facility] [address] [id number] [place] [address]- 5141 Jan, [facility] [place] [facility] [address] [id number] [place] [address]- 4727 Jan, [facility] [place] [facility] [address] [id number] [place] [address]- 2709 Jan, [facility] [place] [facility] [address] [id number] [place] [address]- 6824 Jan, [facility] [place] [facility] [address] [id number] [place] [address]- 8776 Jan, [facility] [place] [facility] [address] [id number] [place] [address]- 0369 Jan, [facility] [place] [facility] [address] [id number] [place] [address]- 7254 Jan, [facility] [place] [facility] [address] [id number] [place] [address]- 8585 Dec, [facility] [place] [facility] [address] [id number], [place] [address]- 4288 Dec, [facility] [place] [facility] [address] [id number] [place] [address]- 1870 Dec, [facility] [place] [facility] [address] [id number] [place] [address]- 8680 Dec, [facility] [place] [facility] [address] [id number] [place] [address]- 3343 Dec, [facility] [place] [facility] [address] [id number] [place] [address]- 6326 Dec, [facility] [place] [facility] [address] [id number] [place] [address]- 7742 Dec, [facility] [place] [facility] [address] [id number] [place] [address]- 6822 Dec, [facility] [place] [facility] [address] [id number] [place] [address]- 5695 Dec, [facility] [place] [facility] [address] [id number] [place] [address]- 1754 Dec, [facility] [place] [facility] [address] [id number] [place] [address]- 0407 Nov, [facility] [place] [facility] [address] [id number] [place] [address]- 6061 Nov, [facility] [place] [facility] [address] [id number], [place] [address]- 6321 Nov, [facility] [place] [facility] [address] [id number], [place] [address]- 3460 Nov, [facility] [place] [facility] [address] [id number], [place] [address]- 6945 Nov, [facility] [place] [facility] [address] [id number], [place] [address]- 4729 Nov, [facility] [place] [facility] [address] [id number] [place] [address]- 1991 Nov, [facility] [place] [facility] [address] [id number] [place] [address]- 0035 Nov, 2013 [facility] [place] [facility] [address] [id number] [place] [address]- 2333 Nov, [facility] [place] [facility] [address] [id number] [place] [address]- 0008 Nov, [facility] [place] [facility] [address] [id number] [place] [address]- 0844 Nov, 2013 [facility] [place] [facility] [address] [id number] [place] [address]- 9989 17 Nov, 2013 [facility] [place] [facility] [address] [id number] [place] [address]- 3025 Nov, [facility] [place] [facility] [address] [id number] [place] [address]- 1789 14 Nov, 2013 [facility] [place] [facility] [address] [id number] [place] [address]- 5622 Nov, 2013 [facility] [place] [facility] [address] [id number] [place] [address]- 1743 10 Nov, 2013 [facility] [place] [facility] [address] [id number] [place] [address]- 2447 Nov, [facility] [place] [facility] [address] [id number] [place] [address]- 9127 Nov, [facility] [place] [facility] [address] [id number] [place] [address]- 2831 Nov, [facility] [place] [facility] [address] [id number] [place] [address]- 8335 Nov, [facility] [place] [facility] [address] [id number] [place] [address]- 6967 Oct, [facility] [place] [facility] [address] [id number] [place] 4143 Oct, [facility] [place] [facility] [address] [id number] [place] [address]- 3572 19 Oct, 2013 [facility] [place] [facility] [address] [id number] [place] [address]- 0568 Oct, 2013 [facility] [place] [facility] [address] [id number] [place] [address]- 3300 Oct, [facility] [place] [facility] [address] [id number] [place] [address]- 2919 Oct, [facility] [place] [facility] [address] [id number] [place] [address]- 9182 Oct, 2013 [facility] [place] [facility] [address] [id number] [place] [address]- 6005 Oct, [facility] [place] [facility] [address] [id number] [place] [address]- 0404 Oct, [facility] [place] [facility] [address] [id number] [place] [address]- 8351 Oct, [facility] [place] [facility] [address] [id number] [place] [address]- 6026 Sep, [facility] [place] [facility] [address] [id number] [place] [address]- 3895 Sep, [facility] [place] [facility] [address] [id number] [place] [address]- 3015 Sep, [facility] [place] [facility] [address] [id number] [place] [address]- 2527 Sep, [facility] [place] [facility] [address] [id number] [place] [address]- 5526 Sep, [facility] [place] [facility] [address] [id number] [place] [address]- 3881 Sep, [facility] [place] [facility] [address] [id number] [place] [address]- 0029 Sep, [facility] [place] [facility] [address] [id number] [place] [address]- 9114 Sep, [facility] [place] [facility] [address] [id number] [place] [address]- 5135 Sep, [facility] [place] [facility] [address] [id number] [place] [address]- 3799 Sep, [facility] [place] [facility] [address] [id number] [place] [address]- 4469 Sep, [facility] [place] [facility] [address] [id number] [place] [address]- 0039 Sep, [facility] [place] [facility] [address] [id number] [place] [address]- 8179 Sep, [facility] [place] [facility] [address] [id number] [place] [address]- 0199 Sep, [facility] [place] [facility] [address] [id number] [place] [address]- 3130 Sep, [facility] [place] [facility] [address] [id number] [place] [address]- 1269 Sep, [facility] [place] [facility] [address] [id number] [place] [address]- 2980 Sep, [facility] [place] [facility] [address] [id number] [place] [address]- 4838 Sep, [facility] [place] [facility] [address] [id number] [place] [address]- 8902 Sep, [facility] [place] [facility] [address] [id number] [place] [address]- 4674 Sep, [facility] [place] [facility] [address] [id number] [place] [address]- 2510 Sep, [facility] [place] [facility] [address] [id number] [place] [address]- 7571 Sep, [facility] [place] [facility] [address] [id number] [place] [address]- 9713 Sep, [facility] [place] [facility] [address] [id number] [place] [address]- 1758 Sep, [facility] [place] [facility] [address] [id number] [place] [address]- 5928 Sep, [facility] [place] [facility] [address] [id number] [place] [address]- 7675 Aug, [facility] [place] [facility] [address] [id number] [place] [address]- 4260 Aug, [facility] [place] [facility] [address] [id number] [place] [address]- 9806 Aug, [facility] [place] [facility] [address] [id number] [place] [address]- 4986 Aug, [facility] [place] [facility] [address] [id number] [place] [address]- 9800 Aug, [facility] [place] [facility] [address] [id number] [place] [address]- 1574 Aug, [facility] [place] [facility] [address] [id number] [place] [address]- 8890 Aug, [facility] [place] [facility] [address] [id number] [place] [address]- 2742 Aug, [facility] [place] [facility] [address] [id number] [place] [address]- 9036 Aug, [facility] [place] [facility] [address] [id number] [place] [address]- 6164 Aug, [facility] [place] [facility] [address] [id number] [place] [address]- 3971 Aug, [facility] [place] [facility] [address] [id number] [place] [address]- 9732 Aug, [facility] [place] [facility] [address] [id number] [place] [address]- 1378 Aug, [facility] [place] [facility] [address] [id number] [place] [address]- 0547 Jul, [facility] [place] [facility] [address] [id number] [place] [address]- 2424 Jul, [facility] [place] [facility] [address] [id number] [place] [address]- 9386 Jul, [facility] [place] [facility] [address] [id number] [place] [address]- 9635 Jul, [facility] [place] [facility] [address] [id number] [place] [address]- 7402 Jul, [facility] [place] [facility] [address] [id number] [place] [address]- 1405 Jul, [facility] [place] [facility] [address] [id number] [place] [address]- 2670 Jul, [facility] [place] [facility] [address] [id number] [place] [address]- 7912 June, [facility] [place] [facility] [address] [id number] [place] [address]- 3117 June, [facility] [place] [facility] [address] [id number] [place] [address]- 4566 June, [facility] [place] [facility] [address] [id number] [place] [address]- 8584 June, [facility] [place] [facility] [address] [id number] [place] [address]- 4730 May, [facility] [place] [facility] [address] [id number] [place] [address]- 9418 May, [facility] [place] [facility] [address] [id number] [place] [address]- 7217 May, [facility] [place] [facility] [address] [id number] [place] [address]- 0773 May, [facility] [place] [facility] [address] [id number] [place] [address]- 1728 May, [facility] [place] [facility] [address] [id number] [place] [address]- 3258 May, [facility] [place] [facility] [address] [id number] [place] [address]- 6210 May, [facility] [place] [facility] [address] [id number] [place] [address]- 0299 May, [facility] [place] [facility] [address] [id number] [place] [address]- 3457 May, [facility] [place] [facility] [address] [id number] [place] [address]- 3104 May, [facility] [place] [facility] [address] [id number] [place] [address]- 1062 Apr, [facility] [place] [facility] [address] [id number] [place] [address]- 0974 Apr, [facility] [place] [facility] [address] [facility] [id number] [place] [address]- 9304 Apr, [facility] [place] [facility] [address] [facility] [id number] [place] [address]- 5946 Apr, [facility] [place] [facility] [address] [facility] [id number] [place] [address]- 5440 Apr, [facility] [place] [facility] [address] [id number] [place] [address]- 2717 Apr, [facility] [place] [facility] [address] [facility] [id number] [place] [address]- 7710 Apr, [facility] [place] [facility] [address] [facility] [id number] [place] [address]- 6095 Apr, [facility] [place] [facility] [address] [facility] [id number] [place] [address]- 0337 Apr, [facility] [place] [facility] [address] [id number] [place] 7492 Apr, [facility] [place] [facility] [address] [facility] [id number] [place] [address]- 5944 Mar, [facility] [place] [facility] [address] [facility] [id number] [place] [address]- 5401 Mar, [facility] [address] [id number] [place] [address]- 8486 Mar, [facility] [place] [facility] [address] [id number] [place] [address]- 9786 Mar, [facility] [place] [facility] [address] [facility] [id number] [place] [address]- 5319 Mar, [facility] [place] [facility] [address] [id number] [place] [address]- 4984 Mar, [facility] [place] [facility] [address] [id number] [place] 4588 Jan, [facility] [place] [facility] [address] [id number] [place] [address]- 3390 Jan, [facility] [place] [facility] [address] [id number] [place] [address]- 9641 Jan, [facility] [place] [facility] [address] [id number], [place] [address]- 4035 Jan, [facility] [place] [facility] [address] [id number] [place] [address]- 2656 Jan, [facility] [place] [facility] [address] [id number] [place] [address]- 7202 Jan, [facility] [place] [facility] [address] [id number], [place] [address]- 4857 Jan, [facility] [place] [facility] [address] [id number], [place] [address]- 1105 Jan, [facility] [place] [facility] [address] [id number] [place] [address]- 1660 Jan, [facility] [place] [facility] [address] [id number], [place] [address]- 4874 Dec, [facility] [place] [facility] [address] [id number] [place] [address]- 7901 Dec, [facility] [place] [facility] [address] [id number] [place] [address]- 2371 Dec, [facility] [place] [facility] [address] [id number] [place] [address]- 3365 Dec, [facility] [place] [facility] [address] [id number] [place] [address]- 7224 Dec, [facility] [place] [facility] [address] [id number] [place] [address]- 1706 Dec, [facility] [place] [facility] [address] [id number] [place] [address]- 5770 Dec, [facility] [place] [facility] [address] [id number] [place] [address]- 6646 Dec, [facility] [place] [facility] [address] [id number] [place] [address]- 4113 Dec, [facility] [place] [facility] [address] [id number] [place] [address]- 6421 Dec, [facility] [place] [facility] [address] [id number] [place] [address]- 8168 Dec, [facility] [place] [facility] [address] [id number] [place] [address]- 9181 Nov, [facility] [place] [facility] [address] [id number] [place] [address]- 9970 Nov, [facility] [place] [facility] [address] [id number] [place] [address]- 6727 Nov, [facility] [place] [facility] [address] [id number] [place] [address]- 9269 Nov, [facility] [place] [facility] [address] [id number] [place] 4287 Nov, [facility] [place] [facility] [address] [facility] [id number] [place] [address]- 6322 Oct, [facility] [place] [facility] [address] [id number] [place] 2992 Oct, [facility] [place] [facility] [address] [id number] [place] [address]- 2547 Sep, [facility] [address] [id number] [place] [address] 2546 Aug, [facility] [address] [id number] [place] [address]- 2546 Aug, [facility] [address] [id number] [place] [address]- 2545 Aug, [facility] [address] [id number] [place] [address]- 2548 Aug, [facility] [address] [id number] [place] [address]- 2546 Jul, [facility] [address] [id number] [place] [address]- 2546 Jul, [facility] [address] [id number] [place] [address]- 3246 June, [facility] [address] [id number] [place] [address]- 2541 June, [facility] [address] [id number] [place] [address]- 8546 June, [facility] [address] [id number] [place] [address]- 2546 May, [facility] [address] [id number] [place] [address]- 2546 May, [facility] [place] [facility] [address] [id number] [place] [address]- 2546 May, [facility] [place] [facility] [address] [id number] [place] [address]- 2546 Apr, [facility] [place] [facility] [address] [id number] [place] [address]- 2546 Apr, [facility] [place] [facility] [address] [id number] [place] [address] 15 Apr, 2012 [facility] [address] [id number] [place] [address] 14 Apr, 2012 [facility] [address] [id number] [place] [address] 12 Apr, 2012 [facility] [address] [id number] [place] [address] 27 Apr, 2012 [facility] [place] [facility] [address] [id number] [place] [address] Apr, [facility] [place] [facility] [address] [id number] [place] [address] Apr, [facility] [place] [facility] [address] [id number] [place] [address] Apr, [facility] [address] [id number] [place] [address] 20 Apr, 2012 [facility] [address] [id number] [place] [address] 19 Apr, 2012 [facility] [address] [id number] [place] [address] 2667 07 Apr, 2012 [facility] [address] [id number] [place] [address] 07 Apr, 2012 [facility] [address] [id number] [place] [address] Mar, [facility] [place] [facility] [address] [id number] [place] [address] 23 Mar, 2012 [facility] [place] [facility] [address] [id number] [place] [address] 16 Mar, 2012 [facility] [place] [facility] [address] [id number] [place] [address] Mar, [facility] [place] [facility] [address] [id number] [place] [address] Mar, [facility] [place] [facility] [address] [id number] [place] [address] Jan, [facility] [address] [id number] [place] [address] Jan, [facility] [address] [id number] [place] [address] Jan, [facility] [address] [id number] [place] [address] Jan, [facility] [address] [id number] [place] [address]74 14 Jan, 2012 [facility] [address] [id number] [place] [address] Jan, [facility] [address] [id number] [place] [address] Jan, [facility] [address] [id number] [place] [address] Jan, [facility] [address] [id number] [place] [address] Jan, [facility] [address] [id number] [place] [address] Jan, [facility] [address] [id number] [place] [address] Jan, [facility] [place] [facility] [address] [id number] [place] [address] Jan, [facility] [place] [facility] [address] [id number] [place] [address] Jan, [facility] [place] [facility] [address] [id number] [place] [address] 1873 Jan, [facility] [address] [id number] [place] [address] Dec, [facility] [place] [facility] [address] [id number], [place] [address] 26 Jan, 2012 [facility] [place] [facility] [address] [id number] [place] [address]166 19 Jan, 2012 [facility] [place] [facility] [address] [id number], [place] [address] 19 Jan, 2012 [facility] [place] [facility] [address] [id number] [place] [address] 1413 15 Jan, 2012 [facility] [place] [facility] [address] [id number], [place] [address] 15 Jan, 2012 [facility] [place] [facility] [address] [id number] [place] [address] 4738 14 Jan, 2012 [facility] [place] [facility] [address] [id number] [place] [address] 14 Jan, 2012 [facility] [place] [facility] [address] [id number] [place] [address]- 1828 14 Jan, 2012 [facility] [place] [facility] [address] [id number] [place] [address]- 6[address] 14 Jan, 2012 [facility] [place] [facility] [address] [id number], [place] [address] 07 Jan, 2012 [facility] [place] [facility] [address] [id number], [place] [address] 07 Jan, 2012 [facility] [place] [facility] [address] [id number], [place] [address]- [address]31 16 Dec, 2011 [facility] [place] [facility] [address] [id number], [place] [address] 16 Dec, 2011 [facility] [place] [facility] [address] [id number], [place] [address] 13 Sep2011 [facility] [place] [facility] [address] [id number], [place] [address] 13 Nov, 2011 [facility] [place] [facility] [address] [id number] [place] [address]- 1177 13 Nov, 2011 [facility] [place] [facility] [address] [id number] [place] [address]- [address] Oct, [facility] [address] [id number] [place] [address] Sep, [facility] [place] [facility] [address] [id number] [place] [address] Sep, [facility] [address] [id number] [place] [address]- [address]46 Aug, [facility] [address] [id number] [place] [address] Aug, [facility] [address] [id number] [place] [address] Aug, [facility] [address] [id number] [place] [address]46 Aug, [facility] [address] [id number] [place] [address] June, [facility] [address] [id number] [place] [address] 66[address] June, [facility] [address] [id number] [place] [address] May, [facility] [address] [id number] [place] [address] 2546 Apr, [facility] [place] [facility] [address] [id number] [place] [address]- 2546 Apr, [facility] [address] [id number] [place] [address]- 2546 Apr, [facility] [place] [facility] [address] [id number] [place] [address]- [address] Apr, [facility] [place] [facility] [address] [id number] [place] [address]- [address]46 Apr, [facility] [place] [facility] [address] [id number] [place] [address]- 7920 Apr, [facility] [place] [facility] [address] [id number] [place] [address]- 8134 Mar, [facility] [place] [facility] [address] [id number] [place] [address]- 3485 Mar, [facility] [place] [facility] [address] [id number] [place] [address] 3818 Mar, [facility] [place] [facility] [address] [id number] [place] [address]- 6702 Jan, [facility] [place] [facility] [address] [id number] [place] [address]- 2469 Jan, [facility] [place] [facility] [address] [id number] [place] [address]- [address] Jan, [facility] [place] [facility] [address] [id number] [place] [address] Jan, [facility] [place] [facility] [address] [id number] [place] [address] Jan, [facility] [place] [facility] [address] [id number] [place] [address] Jan, [facility] [place] [facility] [address] [id number] [place] [address] Jan, [facility] [place] [facility] [address] [id number], [place] [address] Dec, [facility] [place] [facility] [address] [id number], [place] [address] Dec, [facility] [place] [facility] [address] [id number] [place] [address] Nov, [facility] [place] [facility] [address] [id number], [place] [address] Nov, [facility] [place] [facility] [address] [id number], [place] [address] Nov, [facility] [place] [facility] [address] [id number] [place] [address] 12 Nov, 2010 [facility] [address] [id number] [place] [address] 12 Oct, 2010 [facility] [place] [facility] [address] [id number] [place] [address] Sep, [facility] [place] [facility] [address] [id number] [place] [address] Mar, [facility] [place] [facility] [address] [id number] [place] [address] Jan, [facility] [place] [facility] [address] [id number] [place] [address] Dec, [facility] [place] [facility] [address] [id number] [place] [address] Dec, [facility] [place] [facility] [address] [id number] [place] [address] Dec, [facility] [place] [facility] [address] [id number] [place] [address] Dec, [facility] [place] [facility] [address] [id number] [place] [address] 26 Nov, 2009 [facility] [place] [facility] [address] [id number] [place] [address] 15 Nov, 2009 [facility] [place] [facility] [address] [id number] [place] [address] 14 Nov, 2009 [facility] [place] [facility] [address] [id number] [place] [address]- [address] 14 Nov, 2009 [facility] [place] [facility] [address] [id number] [place] [address] 13 Oct, 2009 [facility] [place] [facility] [address] [id number] [place] [address] Jul, [facility] [place] [facility] [address] [id number] [place] [address] June, [facility] [id number] [address] June, [facility] [id number] [address] Apr, [facility] [id number] [address] Mar, [facility] [id number] [place] [address] Jan, [facility] [id number] [address] Jan, [facility] [id number] [place] [id number]- [address] Dec, [facility] [id number] [address] Dec, [facility] [id number] [place] [address] Dec, [facility] [id number] [address] Dec, [facility] [id number] [address] Nov, [facility] [id number] [place] [address] Jul, [facility] [id number], [place] [address] June, IMMUNIZATIONS No Known Immunizations SOCIAL HISTORY Never Assessed REASON FOR VISIT Controlled Med Refill PLAN OF CARE VITAL SIGNS MEDICATIONS Medication Instructions Dosage Frequency Start Date End Date Duration Status Endocet 10-325 MG Orally every 4-6 hours 1 tablet as needed Jul, Active RESULTS No Results PROCEDURES No Known [...]
--- OUTSIDE RECORDS SUMMARY | 2018-02-26 18:57 | XMS REPORT ---
Author Author GRAHAM CHRIS [facility] Address [address] [place] [address] Care Team Providers Care Vamp Maker Name Role Phone GRAHAMELLIOTT HANNAHANY Unavailable PROBLEMS Type Condition ICD9-CM Code TNJ69-MH Code Onset Dates Condition Status SNOMED Code Problem Pulmonary asbestosis J61 Active 69437794 Problem Left ventricular diastolic dysfunction I51.9 Active 056242916 Problem Chronic gout, unspecified cause, unspecified site M1A.9XX0 Active 01995315 Problem Renal cyst, left N28.1 Active 81601858 Problem History of weight loss surgery Z98.84 Active 908291762 Problem Nocturnal hypoxia G47.34 Active 752447267 Problem Obstructive sleep apnea syndrome G47.33 Active 31275826 Problem History of diverticulitis Z87.19 Active 300875223711510 Problem Allergic rhinitis, unspecified allergic rhinitis type J30.9 Active 56127801 Problem Erectile dysfunction due to diseases classified elsewhere N52.1 Active 838319116 Problem Acute right-sided low back pain with right-sided sciatica M54.41 Active 229044162 Problem Psoriasis L40.9 Active 8052843 Problem Essential hypertension I10 Active 09651931 Problem Nephrolithiasis N20.0 Active 59081101 Problem Chronic prescription opiate use Z79.899 Active 361000883 Problem 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 Active 87395580 Problem Benign prostatic hyperplasia, presence of lower urinary tract symptoms unspecified, unspecified morphology N40.0 Active 980457759 Problem Moderate episode of recurrent major depressive disorder F33.1 Active 738797596 Problem Age-related osteoporosis without current pathological fracture M81.0 Active 05363649 Problem Low back pain M54.5 Active 024076234 Problem Anxiety F41.9 Active 64648843 Problem Urge incontinence N39.41 Active 816675005 Problem Hyperlipidemia, unspecified E78.5 Active 46926227 Problem Esophageal stricture K22.2 Active 17688901 Problem Cervicalgia M54.2 Active 5274975217806 Problem Primary insomnia F51.01 Active 904965371 ALLERGIES No Information ENCOUNTERS Encounter Location Date Diagnosis [facility] [id number] [place] [address] 28347- 3224 Oct, [facility] [id number] [place] [address] 11364- 7483 Sep, Anxiety F41.9 [facility] [id number] [place] [address] 92311- 6929 Sep, [facility] [id number] [place] [address] 21797- 5841 Aug, [facility] [id number] [place] [address] 33024- 8406 Aug, [facility] [id number] [place] [address] 37675- 8534 Aug, Anxiety F41.9 [facility] [id number] [place] [address] 36502- 7995 Aug, [facility] [id number] [place] [address] 53872- 0100 Jul, [facility] [id number] [place] [address] 49480- 7404 Jul, Anxiety F41.9 [facility] [id number] [place] [address] 82505- 5429 June, Anxiety F41.9 [facility] [id number] [place] [address] 04202- 6730 June, [facility] [id number] [place] [address] 03137- 6101 June, Low back pain M54.5 ; Chronic prescription opiate use Z79.899 ; Candidal intertrigo B37.2 ; Urge incontinence N39.41 ; Essential hypertension I10 ; Moderate episode of recurrent major depressive disorder F33.1 ; Age-related osteoporosis without current pathological fracture M81.0 and BMI 45.0-49.9, adult Z68.42 [facility] [id number] [address] 1411 June, [facility] [id number] [place] [address] 62441- 2846 May, Anxiety F41.9 [facility] [id number] [place] [address] 76784- 5839 May, [facility] [id number] [place] [address] 85936- 6184 May, [facility] [id number] [place] [address] 88537- 0657 Apr, Anxiety F41.9 [facility] [id number] [place] [address] 23246- 8875 Apr, [facility] [address] 87041- 0994 Apr, Low back pain M54.5 [facility] [id number] [place] [address] 75219- 9000 Apr, [facility] [id number] [place] [address] 98043- 7370 Apr, [facility] [id number] [place] [address] 78891- 4352 Apr, Anxiety F41.9 [facility] [id number] [place] [address] 78663- 5084 Apr, Right groin pain R10.31 [facility] [id number] [place] [address] 35061- 1594 Mar, [facility] [id number] [place] [address] 11146- 6712 Mar, [facility] [id number] [place] [address] 28593- 4198 Mar, Anxiety F41.9 [facility] [id number] [place] [address] 89841- 5889 Mar, Low back pain M54.5 [facility] [id number] [place] [address] 33675- 7322 Mar, Right groin pain R10.31 ; Low back pain M54.5 and BMI 45.0- 49.9, adult Z68.42 [facility] [id number] [place] [address] 95156- 2102 Mar, [facility] [id number] [place] [address] 98659- 0277 Mar, [facility] [id number] [place] [address] 56829- 2179 Mar, [facility] [id number] [place] [address] 80659 -5906 Mar, [facility] [id number] [place] [address] 61864 -7601 Mar, Cough R05 ; Pneumonia of right lower lobe due to infectious organism J18.1 and Abnormal chest x-ray R93.8 [facility] [id number] [place] [address] 85179- 4729 Mar, [facility] [id number] [place] [address] 16590- 3188 Mar, [facility] [id number] [place] [address] 35595- 4384 Jan, Anxiety F41.9 [facility] [id number] [place] [address] 34531- 6724 Jan, [facility] [id number] [place] [address] 62081- 4041 Jan, Moderate episode of recurrent major depressive disorder F33.1 [facility] [id number] [place] [address] 90275- 5517 20 Dec, 2017 Subacromial bursitis of right shoulder joint M75.51 ; Shortness of breath on exertion R06.02 and BMI 45.0-49.9, adult Z68.42 [facility] [id number] [place] [address] 28487- 7437 Dec, Anxiety F41.9 [facility] [id number] [place] [address] 03828- 8296 Dec, [facility] [address] 10439- 2994 Dec, Low back pain M54.5 [facility] [address] 23585- 4206 Oct, Low back pain M54.5 [facility] [id number] [place] [address] 95263- 9652 Sep, [facility] [address] 61964- 8183 Sep, Erectile dysfunction due to diseases classified elsewhere N52.1 [facility] [id number] [place] [address] 61620- 6011 Sep, Erectile dysfunction due to diseases classified elsewhere N52.1 [facility] [id number] [place] [address] 83099- 5155 Sep, [facility] [id number] [place] [address] 28543- 2474 Sep, Erectile dysfunction due to diseases classified elsewhere N52.1 [facility] [id number] [place] [address] 69796- 5006 Sep, Low back pain M54.5 and Anxiety F41.9 [facility] [id number] [place] [address] 68048 -7515 Aug, Acute allergic rhinitis J30.9 [facility] [id number] [place] [address] 35320- 9727 Aug, [facility] [id number] [place] [address] 23838- 2248 Aug, Anxiety F41.9 [facility] [id number] [place] [address] 86114- 2236 Jul, Low back pain M54.5 ; Chronic prescription opiate use Z79.899 and Essential hypertension I10 [facility] [id number] [place] [address] 10524- 3296 Jul, Anxiety F41.9 and Low back pain M54.5 [facility] [id number] [place] [address] 35492- 6469 June, [facility] [address] 16099- 4796 June, Anxiety F41.9 [facility] [id number] [place] [address] 52929- 1324 May, Low back pain M54.5 [facility] [id number] [place] [address] 28249- 5013 May, [facility] [id number] [place] [address] 71931- 6934 May, Anxiety F41.9 [facility] [id number] [place] [address] 33025- 6498 Apr, [facility] [id number] [place] [address] 97575- 7363 Apr, Low back pain M54.5 [facility] [id number] [place] [address] 25218- 3199 Apr, Moderate episode of recurrent major depressive disorder F33.1 [facility] [id number] [place] [address] 97735- 0156 Apr, Anxiety F41.9 [facility] [id number] [place] [address] 53888- 7522 Apr, Low back pain M54.5 [facility] [id number] [place] [address] 48958- 9683 15 Apr, 2016 Elevated alkaline phosphatase level R74.8 [facility] [id number] [place] [address] 58880- 1606 10 Apr, 2016 Alkaline phosphatase elevation R74.8 [facility] [id number] [place] [address] 43481- 5165 06 Apr, 2016 Anxiety F41.9 [facility] [id number] [place] [address] 48425- 1212 03 Apr, 2016 Low back pain M54.5 [facility] [id number] [place] [address] 83953- 0842 03 Apr, 2016 Essential hypertension I10 ; History of weight loss surgery Z98.84 ; History of herpes genitalis Z86.19 ; Encounter for hepatitis C screening test for low risk patient Z11.59 ; Hyperlipidemia, unspecified E78.5 ; Benign prostatic hyperplasia, presence of lower urinary tract symptoms unspecified, unspecified morphology N40.0 and Exposure to STD Z20.2 [facility] [id number] [place] [address] 60283- 4745 Apr, [facility] [id number] [place] [address] 46188- 3449 Mar, [facility] [id number] [place] [address] 81876- 3759 Mar, [facility] [id number] [place] [address] 87147- 0144 Mar, [facility] [id number] [place] [address] 55183- 4940 Mar, Acute right-sided low back pain with right-sided sciatica M54.41 [facility] [id number] [place] [address] 16227- 6086 Mar, Low back pain M54.5 [facility] [id number] [place] [address] 86263 -5596 Mar, Muscle strain of chest wall, initial encounter S29.011A ; Muscle strain of right thigh, initial encounter S76.911A and Acute non- recurrent maxillary sinusitis J01.00 [facility] [id number] [place] [address] 90010- 8730 Mar, Benign prostatic hyperplasia, presence of lower urinary tract symptoms unspecified, unspecified morphology N40.0 [facility] [id number] [place] [address] 86162- 8813 Jan, Low back pain M54.5 [facility] [id number] [place] [address] 38679- 8772 Jan, Low back pain M54.5 ; Essential hypertension I10 ; Hyperlipidemia, unspecified E78.5 ; Anxiety F41.9 ; Moderate episode of recurrent major depressive disorder F33.1 ; Primary insomnia F51.01 ; Exposure to STD Z20.2 ; Encounter for hepatitis C screening test for low risk patient Z11.59 and History of herpes genitalis Z86.19 [facility] [id number] [place] [address] 47436- 8892 Dec, [facility] [id number] [place] [address] 69642- 2028 Nov, [facility] [id number] [place] [address] 55913- 9173 Nov, Anxiety F41.9 ; Cervicalgia M54.2 ; Moderate episode of recurrent major depressive disorder F33.1 and Encounter for immunization Z23 [facility] [id number] [place] [address] 82093- 7123 Oct, [facility] [address] 10361- 5207 Oct, [facility] [id number] [place] [address] 88555- 1407 16 Nov, 2015 [facility] [address] 92789- 0768 Oct, [facility] [address] [address]- 8656 Sep, [facility] [id number] [place] [address] 72324- 0896 Aug, Low back pain M54.5 ; Anxiety F41.9 ; Primary insomnia F51.01 and Chronic prescription opiate use Z79.899 [facility] [id number] [place] [address] 67320- 3977 Jul, [facility] [id number] [place] [address] 28897- 4332 Jul, [facility] [id number] [place] [address] 81182- 8650 Jul, [facility] [id number] [place] [address] 53926- 2428 Jul, [facility] [id number] [place] [address] 26100- 1920 Jul, [facility] [id number] [place] [address] 30277- 2484 June, [facility] [id number] [place] [address] 01852- 7870 June, [facility] [id number] [place] [address] 51144- 6087 June, [facility] [id number] [place] [address] 01787- 0549 June, [facility] [address], [place] [address]- 9427 May, Preoperative cardiovascular examination Z01.810 [facility] [id number] [place] [address] 51543- 5988 May, [facility] [address], [place] [address]- 8009 Apr, [facility] [address], [place] [address]- 6719 31 May, 2015 Osteoarthritis of right knee M17.9 [facility] [id number] [place] [address] 34540- 4166 30 May, 2015 [facility] [id number] [place] [address] 19816- 8417 16 May, 2015 [facility] [id number] [place] [address] 27851- 2428 11 May, 2015 [facility] [id number] [place] [address] 11674- 5901 09 May, 2015 [facility] [id number] [place] [address] 29777- 0298 08 May, 2015 History of excessive cerumen Z78.9 ; Obstructive sleep apnea syndrome G47.33 ; History of diverticulitis Z87.19 and Nephrolithiasis N20.0 [facility] [address], [place] [address]- 4593 29 Apr, 2015 [facility] [id number] [place] [address] 69854 -4025 23 Apr, 2015 Abdominal pain R10.9 [facility] [address], [place] [address]- 3298 10 Apr, 2015 [facility] [address], [place] [address]- 2833 04 Apr, 2015 Osteoarthritis of right knee M17.9 [facility] [address], [place] [address]- 1444 Mar, [facility] [id number] [place] [address] 15351- 0020 15 Mar, 2015 [facility] [address], [place] [address]- 4746 14 Mar, 2015 [facility] [id number] [place] [address] 16698- 3875 Mar, [facility] [id number] [place] [address] 48134 -7176 Mar, Pyelonephritis N12 ; Left-sided thoracic back pain M54.6 ; Hematuria, unspecified R31.9 and Kidney stone N20.0 [facility] [id number] [place] [address] 11420- 8795 Mar, History of weight loss surgery Z98.84 [facility] [id number] [place] [address] 81494- 1993 Mar, History of weight loss surgery Z98.84 and Hyperlipidemia, unspecified E78.5 [facility] [address] 97049- 3382 Mar, Low back pain M54.5 ; Chronic prescription opiate use Z79.899 ; Hyperlipidemia, unspecified E78.5 ; Spasm of back muscles M62.830 and History of weight loss surgery Z98.84 [facility] [id number] [place] [address] 96563- 9590 Jan, [facility] [id number] [place] [address] 98115- 4922 Jan, [facility] [id number] [place] [address] 46180- 2365 Jan, [facility] [id number] [place] [address] 83171- 8251 Dec, [facility] [id number] [place] [address] 18185- 3653 Dec, [facility] [id number] [place] [address] 88861- 7207 Dec, [facility] [id number] [place] [address] 98260- 1976 Nov, [facility] [id number] [place] [address] 96038- 5986 Nov, Obstructive sleep apnea syndrome G47.33 and Pharyngoesophageal dysphagia R13.14 [facility] [id number] [place] [address] 62791- 1310 Nov, [facility] [id number] [place] [address] 08538- 5883 Nov, [facility] [id number] [place] [address] 81568- 9595 Nov, [facility] [id number] [place] [address] [phone] 30 Oct, 2014 Dental examination V72.2 [facility] [address] 19918- 9778 Oct, [facility] [id number] [place] [address] 43477- 2580 Oct, [facility] [id number] [place] [address] 96761- 3146 Oct, [facility] [id number] [place] [address] 89912- 2513 Oct, [facility] [id number] [place] [address] 77479- 8689 Oct, BPH (benign prostatic hyperplasia) 600.00 and Urinary frequency 788.41 [facility] [id number] [place] [address] 55604- 7363 Oct, [facility] [id number] [place] [address] 99530- 6926 Oct, [facility] [id number] [place] [address] 14230- 6404 Oct, [facility] [id number] [place] [address] [phone]- 3766 Sep, Cerumen impaction 380.4 ; Cerumen debris on tympanic membrane 380.4 ; Psoriasis 696.1 and MICKY (secretory otitis media) 381.4 [facility] [id number] [id number] Sep, Dental examination V72.2 [facility] [id number] [place] [address] 96443- 8815 Sep, Fatigue 780.79 ; Irritable bowel syndrome 564.1 ; Overweight 278.02 ; Poor sleep V69.4 ; Shaking spells 781.0 and Broken tooth 873.63 [facility] [id number] [place] [address] 90911- 6699 Sep, [facility] [id number] [place] [address] 17832- 2941 Sep, [facility] [id number] [place] [address] 68657- 9175 Aug, [facility] [id number] [place] [address] 21534- 6178 Jul, [facility] [id number] [place] [address] 20830- 6616 Jul, [facility] [id number] [place] [address] 78496- 3995 Jul, [facility] [id number] [place] [address] 08474- 2113 Jul, [facility] [address] [address] June, Arthritis of knee, right 716.96 [facility] [address], [place] [address] June, [facility] [id number] [place] [address] 98018- 6219 June, Elevated blood pressure reading without diagnosis of hypertension 796.2 [facility] [address] [address] June, [facility] [id number] [place] [address] 23327- 6270 June, [facility] [place] [facility] [address] [id number] [place] [address] June, [facility] [place] [facility] [address] [id number] [place] [address] 86[address] June, [facility] [place] [facility] [address] [id number] [place] [address] May, [facility] [place] [facility] [address] [id number] [place] [address] May, [facility] [place] [facility] [address] [id number] [place] [address] 1752 Apr, [facility] [place] [facility] [address] [id number] [place] [address]- 2519 Apr, [facility] [place] [facility] [address] [id number] [place] [address] 6666 Apr, [facility] [place] [facility] [address] [id number] [place] [address] 7302 Apr, [facility] [place] [facility] [address] [id number] [place] [address] 8084 Apr, [facility] [place] [facility] [address] [id number] [place] [address] 9186 Apr, [facility] [place] [facility] [address] [id number] [place] [address]377 Apr, [facility] [place] [facility] [address] [id number] [address] Apr, [facility] [place] [facility] [address] [id number] [place] [address] 57[address] Apr, [facility] [place] [facility] [address] [id number] [place] [address] 91[address] Apr, [facility] [place] [facility] [address] [id number] [place] [address] 0459 Apr, [facility] [place] [facility] [address] [facility] [id number] [place] [address]- 2538 27 Apr, 2014 [facility] [place] [facility] [address] [id number] [place] [address]- 3995 24 Apr, 2014 [facility] [place] [facility] [address] [id number] [place] [address]- 2549 24 Apr, 2014 [facility] [place] [facility] [address] [facility] [id number] [place] [address]- 7159 23 Apr, 2014 [facility] [place] [facility] [address] [facility] [id number] [place] [address]- 9928 23 Apr, 2014 [facility] [place] [facility] [address] [facility] [id number] [place] [address]- 6121 20 Apr, 2014 [facility] [place] [facility] [address] [facility] [id number] [place] [address]- 0712 20 Apr, 2014 [facility] [place] [facility] [address] [id number] [address] 86[address] 18 Apr, 2014 [facility] [place] [facility] [address] [facility] [id number] [place] [address]- 0033 18 Apr, 2014 [facility] [place] [facility] [address] [id number] [address] 18[address] 13 Apr, 2014 [facility] [place] [facility] [address] [id number], [place] [address] 13 Apr, 2014 [facility] [place] [facility] [address] [facility] [id number], [place] [address]- 2544 13 Apr, 2014 [facility] [place] [facility] [address] [facility] [id number] [place] [address]- 9091 13 Apr, 2014 [facility] [place] [facility] [address] [facility] [id number] [place] [address]- 6923 12 Apr, 2014 [facility] [place] [facility] [address] [facility] [id number], [place] [address]- 1480 12 Apr, 2014 [facility] [place] [facility] [address] [facility] [id number], [place] [address]- 0029 Apr, 2014 [facility] [place] [facility] [address] [id number] [place] [address]- 6986 Apr, 2014 [facility] [place] [facility] [address] [id number] [place] [address] Apr, 2014 [facility] [place] [facility] [address] [id number] [place] [address]- 6196 Apr, 2014 [facility] [place] [facility] [address] [id number] [place] [address]- 8980 Apr, 2014 [facility] [place] [facility] [address] [id number] [place] [address]- 6470 Apr, 2014 [facility] [place] [facility] [address] [id number] [place] [address]- 5774 Apr, 2014 [facility] [place] [facility] [address] [facility] [id number] [place] [address]- 3279 Mar, [facility] [place] [facility] [address] [id number] [place] [address]- 1908 Mar, [facility] [place] [facility] [address] [id number] [place] [address]- 3331 Mar, [facility] [place] [facility] [address] [id number] [place] [address]- 5816 Mar, [facility] [place] [facility] [address] [id number] [place] [address]- 8018 Mar, [facility] [place] [facility] [address] [id number] [place] [address]- 0525 Mar, [facility] [place] [facility] [address] [id number] [place] [address]- 3649 Mar, [facility] [place] [facility] [address] [id number] [place] [address]- 2341 Mar, [facility] [place] [facility] [address] [id number] [place] [address]- 7317 Mar, [facility] [place] [facility] [address] [id number] [place] [address]- 0649 Mar, [facility] [place] [facility] [address] [id number] [place] [address]- 7295 Jan, [facility] [place] [facility] [address] [id number] [place] [address]- 8662 Jan, [facility] [place] [facility] [address] [id number] [place] [address]- 6931 Jan, [facility] [place] [facility] [address] [id number] [place] [address] Jan, [facility] [place] [facility] [address] [id number] [place] [address]- 2500 Jan, [facility] [place] [facility] [address] [id number] [place] [address]- 8135 Jan, [facility] [place] [facility] [address] [id number] [place] [address]- 2705 Jan, [facility] [place] [facility] [address] [id number] [place] [address]- 3950 Jan, [facility] [place] [facility] [address] [id number] [place] [address]- 7029 Jan, [facility] [place] [facility] [address] [id number] [place] [address]- 3256 Jan, [facility] [place] [facility] [address] [id number] [place] [address]- 7850 Jan, [facility] [place] [facility] [address] [id number] [place] [address]- 2982 Jan, [facility] [place] [facility] [address] [id number] [place] [address]- 1087 Dec, [facility] [place] [facility] [address] [id number] [place] [address]- 2502 Dec, [facility] [place] [facility] [address] [id number], [place] [address]- 7053 Dec, [facility] [place] [facility] [address] [id number] [place] [address]- 1142 Dec, [facility] [place] [facility] [address] [id number] [place] [address]- 3385 Dec, [facility] [place] [facility] [address] [id number] [place] [address]- 9683 Dec, [facility] [place] [facility] [address] [id number] [place] [address]- 6228 Dec, [facility] [place] [facility] [address] [id number] [place] [address]- 1565 Dec, [facility] [place] [facility] [address] [id number] [place] [address]- 4238 Dec, [facility] [place] [facility] [address] [id number] [place] [address]- 1315 Dec, [facility] [place] [facility] [address] [id number] [place] [address]- 6569 Nov, [facility] [place] [facility] [address] [id number] [place] [address]- 2440 Nov, [facility] [place] [facility] [address] [id number] [place] [address]- 1943 Nov, [facility] [place] [facility] [address] [id number], [place] [address]- 0636 Nov, [facility] [place] [facility] [address] [id number], [place] [address]- 2788 Nov, [facility] [place] [facility] [address] [id number], [place] [address]- 2688 Nov, [facility] [place] [facility] [address] [id number], [place] [address]- 9605 Nov, [facility] [place] [facility] [address] [id number] [place] [address]- 0062 Nov, [facility] [place] [facility] [address] [id number] [place] [address]- 9023 24 Nov, 2013 [facility] [place] [facility] [address] [id number] [place] [address]- 1824 24 Nov, 2013 [facility] [place] [facility] [address] [id number] [place] [address]- 5638 17 Nov, 2013 [facility] [place] [facility] [address] [id number] [place] [address]- 8524 17 Nov, 2013 [facility] [place] [facility] [address] [id number] [place] [address]- 0443 14 Nov, 2013 [facility] [place] [facility] [address] [id number] [place] [address]- 2706 14 Nov, 2013 [facility] [place] [facility] [address] [id number] [place] [address]- 2732 10 Nov, 2013 [facility] [place] [facility] [address] [id number] [place] [address]- 1158 10 Nov, 2013 [facility] [place] [facility] [address] [id number] [place] [address]- 4395 08 Nov, 2013 [facility] [place] [facility] [address] [id number] [place] [address]- 9605 Nov, [facility] [place] [facility] [address] [id number] [place] [address]- 1273 Nov, [facility] [place] [facility] [address] [id number] [place] [address]- 7637 Nov, [facility] [place] [facility] [address] [id number] [place] [address]- 4695 Oct, [facility] [place] [facility] [address] [id number] [place] [address]- 8934 Oct, [facility] [place] [facility] [address] [id number] [place] [address]- 9888 19 Oct, 2013 [facility] [place] [facility] [address] [id number] [place] [address]- 5810 Oct, [facility] [place] [facility] [address] [id number] [place] [address]- 5167 Oct, [facility] [place] [facility] [address] [id number] [place] [address]- 0078 Oct, [facility] [place] [facility] [address] [id number] [place] [address]- 0993 Oct, [facility] [place] [facility] [address] [id number] [place] [address]- 5525 Oct, [facility] [place] [facility] [address] [id number] [place] [address]- 1234 Oct, [facility] [place] [facility] [address] [id number] [place] [address]- 4381 Oct, [facility] [place] [facility] [address] [id number] [place] [address]- 2389 Sep, [facility] [place] [facility] [address] [id number] [place] [address]- 0786 Sep, [facility] [place] [facility] [address] [id number] [place] [address]- 2159 Sep, [facility] [place] [facility] [address] [id number] [place] [address]- 1712 Sep, [facility] [place] [facility] [address] [id number] [place] [address]- 3729 Sep, [facility] [place] [facility] [address] [id number] [place] [address]- 2957 Sep, [facility] [place] [facility] [address] [id number] [place] [address]- 3045 Sep, [facility] [place] [facility] [address] [id number] [place] [address]- 5740 Sep, [facility] [place] [facility] [address] [id number] [place] [address]- 5529 Sep, [facility] [place] [facility] [address] [id number] [place] [address]- 1723 Sep, [facility] [place] [facility] [address] [id number] [place] [address]- 9964 Sep, [facility] [place] [facility] [address] [id number] [place] [address]- 3190 Sep, [facility] [place] [facility] [address] [id number] [place] [address]- 0503 Sep, [facility] [place] [facility] [address] [id number] [place] [address]- 4080 Sep, [facility] [place] [facility] [address] [id number] [place] [address]- 2765 Sep, [facility] [place] [facility] [address] [id number] [place] [address]- 8009 Sep, [facility] [place] [facility] [address] [id number] [place] [address]- 7105 Sep, [facility] [place] [facility] [address] [id number] [place] [address]- 7420 Sep, [facility] [place] [facility] [address] [id number] [place] [address]- 3001 Sep, [facility] [place] [facility] [address] [id number] [place] [address]- 7462 Sep, [facility] [place] [facility] [address] [id number] [place] [address]- 5855 Sep, [facility] [place] [facility] [address] [id number] [place] [address]- 0625 Sep, [facility] [place] [facility] [address] [id number] [place] [address]- 4919 Sep, [facility] [place] [facility] [address] [id number] [place] [address]- 5617 Sep, [facility] [place] [facility] [address] [id number] [place] [address]- 3470 Sep, [facility] [place] [facility] [address] [id number] [place] [address]- 7568 Aug, 2013 [facility] [place] [facility] [address] [id number] [place] [address]- 7699 Aug, [facility] [place] [facility] [address] [id number] [place] [address]- 2947 Aug, [facility] [place] [facility] [address] [id number] [place] [address]- 6342 Aug, [facility] [place] [facility] [address] [id number] [place] [address]- 2965 Aug, [facility] [place] [facility] [address] [id number] [place] [address]- 3379 Aug, [facility] [place] [facility] [address] [id number] [place] [address]- 1051 Aug, [facility] [place] [facility] [address] [id number] [place] [address]- 3708 Aug, [facility] [place] [facility] [address] [id number] [place] [address]- 7278 Aug, [facility] [place] [facility] [address] [id number] [place] [address]- 0802 Aug, [facility] [place] [facility] [address] [id number] [place] [address]- 4266 Aug, [facility] [place] [facility] [address] [id number] [place] [address]- 1166 Aug, [facility] [place] [facility] [address] [id number] [place] [address]- 7584 Aug, [facility] [place] [facility] [address] [id number] [place] [address]- 8364 Jul, [facility] [place] [facility] [address] [id number] [place] [address]- 2829 Jul, [facility] [place] [facility] [address] [id number] [place] [address]- 2424 Jul, [facility] [place] [facility] [address] [id number] [place] [address]- 9150 Jul, [facility] [place] [facility] [address] [id number] [place] [address]- 2123 Jul, [facility] [place] [facility] [address] [id number] [place] [address]- 8713 Jul, [facility] [place] [facility] [address] [id number] [place] [address]- 2149 Jul, [facility] [place] [facility] [address] [id number] [place] [address]- 3513 June, [facility] [place] [facility] [address] [id number] [place] [address]- 3627 June, [facility] [place] [facility] [address] [id number] [place] [address]- 2796 June, [facility] [place] [facility] [address] [id number] [place] [address]- 6746 June, [facility] [place] [facility] [address] [id number] [place] [address]- 4376 May, [facility] [place] [facility] [address] [id number] [place] [address]- 8020 May, [facility] [place] [facility] [address] [id number] [place] [address]- 8509 May, [facility] [place] [facility] [address] [id number] [place] [address]- 5074 May, [facility] [place] [facility] [address] [id number] [place] [address]- 3536 May, [facility] [place] [facility] [address] [id number] [place] [address]- 3349 May, [facility] [place] [facility] [address] [id number] [place] [address]- 7575 May, [facility] [place] [facility] [address] [id number] [place] [address]- 8055 May, [facility] [place] [facility] [address] [id number] [place] [address]- 8261 May, [facility] [place] [facility] [address] [id number] [place] [address]- 4723 May, [facility] [place] [facility] [address] [id number] [place] [address]- 4469 Apr, [facility] [place] [facility] [address] [id number] [place] [address]- 6904 Apr, [facility] [place] [facility] [address] [id number] [place] [address]- 8749 Apr, [facility] [place] [facility] [address] [facility] [id number] [place] [address]- 1620 Apr, [facility] [place] [facility] [address] [facility] [id number] [place] [address]- 3374 Apr, [facility] [place] [facility] [address] [id number] [place] [address]- 3813 Apr, [facility] [place] [facility] [address] [facility] [id number] [place] [address]- 2706 Apr, [facility] [place] [facility] [address] [facility] [id number] [place] [address]- 6744 Apr, [facility] [place] [facility] [address] [facility] [id number] [place] [address]- 2049 Apr, [facility] [place] [facility] [address] [id number] [place] [address]- 0729 Apr, [facility] [place] [facility] [address] [id number] [place] [address]- 6940 Mar, [facility] [place] [facility] [address] [facility] [id number] [place] [address]- 6672 Mar, [facility] [place] [facility] [address] [facility] [id number] [place] [address]- 0733 Mar, [facility] [address] [id number] [place] [address]- 3393 Mar, [facility] [place] [facility] [address] [id number] [place] [address]- 2783 Mar, [facility] [place] [facility] [address] [facility] [id number] [place] [address]- 8025 Mar, [facility] [place] [facility] [address] [id number] [place] [address]- 6552 Jan, [facility] [place] [facility] [address] [id number] [place] [address]- 0731 Jan, [facility] [place] [facility] [address] [id number] [place] [address]- 4129 Jan, [facility] [place] [facility] [address] [id number] [place] [address]- 6438 Jan, [facility] [place] [facility] [address] [id number], [place] [address]- 1043 Jan, [facility] [place] [facility] [address] [id number] [place] [address]- 6650 Jan, [facility] [place] [facility] [address] [id number] [place] [address]- 3418 Jan, [facility] [place] [facility] [address] [id number], [place] [address]- 1507 Jan, [facility] [place] [facility] [address] [id number], [place] [address]- 3282 Jan, [facility] [place] [facility] [address] [id number], [place] [address]- 9566 Dec, [facility] [place] [facility] [address] [id number], [place] [address]- 9311 Dec, [facility] [place] [facility] [address] [id number], [place] [address]- 1913 Dec, [facility] [place] [facility] [address] [id number] [place] [address]- 4296 Dec, [facility] [place] [facility] [address] [id number] [place] [address]- 8878 Dec, [facility] [place] [facility] [address] [id number] [place] [address]- 7513 Dec, [facility] [place] [facility] [address] [id number] [place] [address]- 0871 Dec, [facility] [place] [facility] [address] [id number] [place] [address]- 5081 Dec, [facility] [place] [facility] [address] [id number] [place] [address]- 0695 Dec, [facility] [place] [facility] [address] [id number] [place] [address]- 2850 Dec, [facility] [place] [facility] [address] [id number] [place] [address]- 2563 Dec, [facility] [place] [facility] [address] [id number] [place] [address]- 4462 Nov, [facility] [place] [facility] [address] [id number] [place] [address]- 5714 Nov, [facility] [place] [facility] [address] [facility] [id number] [place] [address]- 9847 Nov, [facility] [place] [facility] [address] [id number] [place] [address]- 2943 Nov, [facility] [place] [facility] [address] [id number] [place] [address]- 5398 Nov, [facility] [place] [facility] [address] [id number] [place] [address]- 6423 Oct, [facility] [place] [facility] [address] [id number] [place] [address]- 5032 Oct, [facility] [place] [facility] [address] [id number] [place] [address]391 Sep, [facility] [place] [facility] [address] [id number] [place] [address]- 5309 Aug, [facility] [address] [id number] [place] [address]- 2809 Aug, [facility] [address] [id number] [place] [address] Aug, [facility] [address] [id number] [place] [address] 254 Aug, [facility] [address] [id number] [place] [address] Jul, [facility] [address] [id number] [place] [address] Jul, [facility] [address] [id number] [place] [address] June, [facility] [address] [id number] [place] [address] June, [facility] [address] [id number] [place] [address] June, [facility] [address] [id number] [place] [address] May, [facility] [address] [id number] [place] [address] May, [facility] [address] [id number] [place] [address] May, [facility] [address] [id number] [place] [address] Apr, [facility] [place] [facility] [address] [id number] [place] [address] Apr, [facility] [address] [id number] [place] [address] Apr, [facility] [address] [id number] [place] [address] 14 Apr, 2012 [facility] [address] [id number] [place] [address] Apr, [facility] [place] [facility] [address] [id number] [place] [address] Apr, [facility] [place] [facility] [address] [id number] [place] [address] Apr, [facility] [place] [facility] [address] [id number] [place] [address] Apr, [facility] [address] [id number] [place] [address] Apr, [facility] [place] [facility] [address] [id number] [place] [address] 20 Apr, 2012 [facility] [address] [id number] [place] [address] Apr, [facility] [address] [id number] [place] [address] 07 Apr, 2012 [facility] [address] [id number] [place] [address] 07 Apr, 2012 [facility] [address] [id number] [place] [address] Mar, [facility] [address] [id number] [place] [address] Mar, [facility] [place] [facility] [address] [id number] [place] [address] 16 Mar, 2012 [facility] [place] [facility] [address] [id number] [place] [address] Mar, [facility] [place] [facility] [address] [id number] [place] [address] Mar, [facility] [place] [facility] [address] [id number] [place] [address]- 2017 Jan, [facility] [place] [facility] [address] [id number] [place] [address] Jan, [facility] [address] [id number] [place] [address] Jan, [facility] [address] [id number] [place] [address] Jan, [facility] [place] [facility] [address] [id number] [place] [address]- [address] 14 Jan, 2012 [facility] [address] [id number] [place] [address] Jan, [facility] [address] [id number] [place] [address] Jan, [facility] [address] [id number] [place] [address] Jan, [facility] [address] [id number] [place] [address] Jan, [facility] [address] [id number] [place] [address] Jan, [facility] [address] [id number] [place] [address] Jan, [facility] [place] [facility] [address] [id number] [place] [address] Jan, [facility] [place] [facility] [address] [id number] [place] [address] Jan, [facility] [place] [facility] [address] [id number] [place] [address] Jan, [facility] [place] [facility] [address] [id number] [place] [address]- [address] Dec, [facility] [place] [facility] [address] [id number] [place] [address] Dec, [facility] [place] [facility] [address] [id number], [place] [address] 19 Jan, 2012 [facility] [place] [facility] [address] [id number] [place] [address]- [address]32 19 Jan, 2012 [facility] [place] [facility] [address] [id number] [place] [address]- [address]139 15 Jan, 2012 [facility] [place] [facility] [address] [id number] [place] [address]- [address]67 15 Jan, 2012 [facility] [place] [facility] [address] [id number] [place] [address]- [address]368 14 Jan, 2012 [facility] [place] [facility] [address] [id number] [place] [address]- [address] 14 Jan, 2012 [facility] [place] [facility] [address] [id number] [place] [address]- [address]653 14 Jan, 2012 [facility] [place] [facility] [address] [id number] [place] [address]208 14 Jan, 2012 [facility] [place] [facility] [address] [id number] [place] [address]- [address]26 07 Jan, 2012 [facility] [place] [facility] [address] [id number], [place] [address] 07 Jan, 2012 [facility] [place] [facility] [address] [id number] [place] [address]- [address]13 16 Dec, 2011 [facility] [place] [facility] [address] [id number], [place] [address]- [address] 16 Dec, 2011 [facility] [place] [facility] [address] [id number], [place] [address] 13 Nov, 2011 [facility] [place] [facility] [address] [id number] [place] [address]- [address]62 13 Nov, 2011 [facility] [place] [facility] [address] [id number] [place] [address]- 3613 13 Nov, 2011 [facility] [place] [facility] [address] [id number] [place] [address]- 6[address] 12 Nov, 2011 [facility] [place] [facility] [address] [id number] [place] [address]- [address]46 Sep, [facility] [address] [id number] [place] [address]46 Sep, [facility] [place] [facility] [address] [id number] [place] [address]- [address]46 Aug, [facility] [address] [id number] [place] [address]- [address]46 Aug, [facility] [address] [id number] [place] [address] Aug, [facility] [address] [id number] [place] [address]- [address]46 Aug, [facility] [address] [id number] [place] [address]- [address] June, [facility] [address] [id number] [place] [address]- [address]46 June, [facility] [address] [id number] [place] [address] May, [facility] [address] [id number] [place] [address] Apr, [facility] [address] [id number] [place] [address] Apr, [facility] [address] [id number] [place] [address] Apr, [facility] [address] [id number] [place] [address] Apr, [facility] [place] [facility] [address] [id number] [place] [address] Apr, [facility] [place] [facility] [address] [id number] [place] [address] Apr, [facility] [place] [facility] [address] [id number] [place] [address] Mar, [facility] [place] [facility] [address] [id number] [place] [address] Mar, [facility] [place] [facility] [address] [id number] [place] [address] Mar, [facility] [place] [facility] [address] [id number] [place] [address] Jan, [facility] [place] [facility] [address] [id number] [place] [address] Jan, [facility] [place] [facility] [address] [id number] [place] [address] Jan, [facility] [place] [facility] [address] [id number] [place] [address] Jan, [facility] [place] [facility] [address] [id number] [place] [address] Jan, [facility] [place] [facility] [address] [id number] [place] [address] Jan, [facility] [place] [facility] [address] [id number] [place] [address] Jan, [facility] [place] [facility] [address] [id number], [place] [address] Dec, [facility] [place] [facility] [address] [id number], [place] [address] Dec, [facility] [place] [facility] [address] [id number], [place] [address] Nov, [facility] [place] [facility] [address] [id number] [place] [address] Nov, [facility] [place] [facility] [address] [id number], [place] [address] Nov, [facility] [place] [facility] [address] [id number], [place] [address] Nov, [facility] [place] [facility] [address] [id number] [place] [address] 12 Oct, 2010 [facility] [address] [id number] [place] [address] 17 Sep, 2010 [facility] [place] [facility] [address] [id number] [place] [address] Mar, [facility] [address] [id number] [place] [address] Jan, [facility] [place] [facility] [address] [id number] [place] [address] Dec, [facility] [place] [facility] [address] [id number] [place] [address] Dec, [facility] [place] [facility] [address] [id number] [place] [address] Dec, [facility] [place] [facility] [address] [id number] [place] [address] Dec, [facility] [place] [facility] [address] [id number] [place] [address] 26 Nov, 2009 [facility] [place] [facility] [address] [id number] [place] [address] 15 Nov, 2009 [facility] [place] [facility] [address] [id number] [place] [address]- [address] 14 Nov, 2009 [facility] [place] [facility] [address] [id number] [place] [address] 14 Nov, 2009 [facility] [place] [facility] [address] [id number] [place] [address] 13 Oct, 2009 [facility] [place] [facility] [address] [id number] [place] [address] Jul, [facility] [place] [facility] [address] [id number] [place] [address] June, [facility] [place] [facility] [address] [id number] [place] [address] 14 Jun, 2009 [facility] [id number], [place] [address] Apr, [facility] [id number], [place] [address] Mar, [facility] [id number], [place] [address] Jan, [facility] [id number] [place] [address] Jan, [facility] [id number], [place] [address] Dec, [facility] [id number] [place] [address] Dec, [facility] [id number], [place] [address] Dec, [facility] [id number] [place] [address]- [address] Dec, [facility] [id number], [place] [address] Nov, [facility] [id number], [place] [address] Jul, [facility] [id number], [place] [address] June, IMMUNIZATIONS No Known Immunizations SOCIAL HISTORY [...] tolerate CPAP Medical History oxygen dependent at [facility] Medical History colonic polyps Medical [...]
--- OUTSIDE RECORDS SUMMARY | 2018-02-26 18:58 | XMS REPORT ---
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 Name Role Phone GRAHAMELLIOTT HANNAHANY Unavailable PROBLEMS Type Condition ICD9-CM Code IGT94-LZ Code Onset Dates Condition Status SNOMED Code Problem Pulmonary asbestosis J61 Active 65940369 Problem Left ventricular diastolic dysfunction I51.9 Active 469315658 Problem Chronic gout, unspecified cause, unspecified site M1A.9XX0 Active 07255121 Problem Renal cyst, left N28.1 Active 63135026 Problem History of weight loss surgery Z98.84 Active 356033595 Problem Nocturnal hypoxia G47.34 Active 769091771 Problem Obstructive sleep apnea syndrome G47.33 Active 16418645 Problem History of diverticulitis Z87.19 Active 960873232555426 Problem Allergic rhinitis, unspecified allergic rhinitis type J30.9 Active 02392769 Problem Erectile dysfunction due to diseases classified elsewhere N52.1 Active 146818407 Problem Acute right-sided low back pain with right-sided sciatica M54.41 Active 382312628 Problem Psoriasis L40.9 Active 6832233 Problem Essential hypertension I10 Active 35240368 Problem Nephrolithiasis N20.0 Active 78753241 Problem Chronic prescription opiate use Z79.899 Active 941385481 Problem 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 Active 32451814 Problem Benign prostatic hyperplasia, presence of lower urinary tract symptoms unspecified, unspecified morphology N40.0 Active 785103281 Problem Moderate episode of recurrent major depressive disorder F33.1 Active 014770231 Problem Age-related osteoporosis without current pathological fracture M81.0 Active 89075446 Problem Low back pain M54.5 Active 515432950 Problem Anxiety F41.9 Active 09546590 Problem Urge incontinence N39.41 Active 944938802 Problem Hyperlipidemia, unspecified E78.5 Active 64593900 Problem Esophageal stricture K22.2 Active 29803551 Problem Cervicalgia M54.2 Active 6372591283610 Problem Primary insomnia F51.01 Active 228810470 ALLERGIES No Information ENCOUNTERS Encounter Location Date Diagnosis [facility] [id number] [place] [address] 58833- 6174 Oct, [facility] [id number] [place] [address] 09645- 4313 Sep, Anxiety F41.9 [facility] [id number] [place] [address] 84734- 6299 Sep, [facility] [id number] [place] [address] 02905- 3949 Aug, [facility] [id number] [place] [address] 66306- 0203 Aug, [facility] [id number] [place] [address] 86712- 5001 Aug, Anxiety F41.9 [facility] [id number] [place] [address] 08594- 6219 Aug, [facility] [id number] [place] [address] 33522- 7528 Jul, [facility] [id number] [place] [address] 38609- 3512 Jul, Anxiety F41.9 [facility] [id number] [place] [address] 07355- 7983 June, Anxiety F41.9 [facility] [id number] [place] [address] 59354- 6526 June, [facility] [id number] [place] [address] 71005- 9062 June, Low back pain M54.5 ; Chronic prescription opiate use Z79.899 ; Candidal intertrigo B37.2 ; Urge incontinence N39.41 ; Essential hypertension I10 ; Moderate episode of recurrent major depressive disorder F33.1 ; Age-related osteoporosis without current pathological fracture M81.0 and BMI 45.0-49.9, adult Z68.42 [facility] [address] [address] 2526 June, [facility] [id number] [place] [address] 56103- 7186 May, Anxiety F41.9 [facility] [id number] [place] [address] 85603- 6760 May, [facility] [id number] [place] [address] 63911- 3585 May, [facility] [id number] [place] [address] 74160- 4782 Apr, Anxiety F41.9 [facility] [id number] [place] [address] 84938- 0731 Apr, [facility] [address] 31738- 1044 Apr, Low back pain M54.5 [facility] [id number] [place] [address] 94151- 9831 Apr, [facility] [id number] [place] [address] 37700- 8476 Apr, [facility] [id number] [place] [address] 81329- 7186 Apr, Anxiety F41.9 [facility] [id number] [place] [address] 53590- 7160 Apr, Right groin pain R10.31 [facility] [id number] [place] [address] 22064- 2923 Mar, [facility] [id number] [place] [address] 69116- 5219 Mar, [facility] [id number] [place] [address] 86361- 1980 Mar, Anxiety F41.9 [facility] [id number] [place] [address] 22927- 5411 Mar, Low back pain M54.5 [facility] [id number] [place] [address] 92783- 0135 Mar, Right groin pain R10.31 ; Low back pain M54.5 and BMI 45.0- 49.9, adult Z68.42 [facility] [id number] [place] [address] 01287- 6338 Mar, [facility] [id number] [place] [address] 53799- 7541 Mar, [facility] [id number] [place] [address] 46153- 9821 Mar, [facility] [id number] [place] [address] 72436 -3544 Mar, [facility] [id number] [place] [address] 34290 -2078 Mar, Cough R05 ; Pneumonia of right lower lobe due to infectious organism J18.1 and Abnormal chest x-ray R93.8 [facility] [id number] [place] [address] 71415- 2464 Mar, [facility] [id number] [place] [address] 59201- 8830 Mar, [facility] [id number] [place] [address] 65176- 6717 Jan, Anxiety F41.9 [facility] [id number] [place] [address] 44833- 2418 Jan, [facility] [id number] [place] [address] 25689- 0650 Jan, Moderate episode of recurrent major depressive disorder F33.1 [facility] [address] [place] [address] 38438- 4005 20 Dec, 2017 Subacromial bursitis of right shoulder joint M75.51 ; Shortness of breath on exertion R06.02 and BMI 45.0-49.9, adult Z68.42 [facility] [id number] [place] [address] 34096- 0012 Dec, Anxiety F41.9 [facility] [id number] [place] [address] 36265- 6407 Dec, [facility] [address] 43688- 8888 Dec, Low back pain M54.5 [facility] [address] 81655- 1473 Oct, Low back pain M54.5 [facility] [id number] [place] [address] 18853- 6684 Sep, [facility] [address] 09931- 8259 Sep, Erectile dysfunction due to diseases classified elsewhere N52.1 [facility] [id number] [place] [address] 13148- 1325 Sep, Erectile dysfunction due to diseases classified elsewhere N52.1 [facility] [id number] [place] [address] 27429- 7940 Sep, [facility] [id number] [place] [address] 52266- 8933 Sep, Erectile dysfunction due to diseases classified elsewhere N52.1 [facility] [id number] [place] [address] 09466- 3695 Sep, Low back pain M54.5 and Anxiety F41.9 [facility] [id number] [place] [address] 29813 -9907 Aug, Acute allergic rhinitis J30.9 [facility] [id number] [place] [address] 29717- 5371 Aug, [facility] [id number] [place] [address] 88122- 7610 Aug, Anxiety F41.9 [facility] [address] [place] [address] 41997- 8436 Jul, Low back pain M54.5 ; Chronic prescription opiate use Z79.899 and Essential hypertension I10 [facility] [id number] [place] [address] 14819- 6618 Jul, Anxiety F41.9 and Low back pain M54.5 [facility] [id number] [place] [address] 00137- 1967 June, [facility] [address] 48663- 1589 June, Anxiety F41.9 [facility] [id number] [place] [address] 88086- 8139 May, Low back pain M54.5 [facility] [id number] [place] [address] 99019- 9328 May, [facility] [id number] [place] [address] 76322- 4101 May, Anxiety F41.9 [facility] [id number] [place] [address] 29800- 8106 Apr, [facility] [id number] [place] [address] 69365- 8216 Apr, Low back pain M54.5 [facility] [id number] [place] [address] 57882- 1588 Apr, Moderate episode of recurrent major depressive disorder F33.1 [facility] [id number] [place] [address] 90693- 1006 Apr, Anxiety F41.9 [facility] [id number] [place] [address] 54995- 6354 Apr, Low back pain M54.5 [facility] [id number] [place] [address] 26253- 2866 15 Apr, 2016 Elevated alkaline phosphatase level R74.8 [facility] [address] [place] [address] 29962- 1705 10 Apr, 2016 Alkaline phosphatase elevation R74.8 [facility] [id number] [place] [address] 93559- 7328 06 Apr, 2016 Anxiety F41.9 [facility] [address] [place] [address] 19332- 8922 03 Apr, 2016 Low back pain M54.5 [facility] [address] [place] [address] 24716- 4448 03 Apr, 2016 History of weight loss surgery Z98.84 ; Encounter for hepatitis C screening test for low risk patient Z11.59 ; History of herpes genitalis Z86.19 ; Essential hypertension I10 ; Hyperlipidemia, unspecified E78.5 ; Exposure to STD Z20.2 and Benign prostatic hyperplasia, presence of lower urinary tract symptoms unspecified, unspecified morphology N40.0 [facility] [id number] [place] [address] 75186- 3916 Apr, [facility] [id number] [place] [address] 63833- 7379 Mar, [facility] [id number] [place] [address] 13702- 8101 Mar, [facility] [id number] [place] [address] 85801- 1866 Mar, [facility] [address] [place] [address] 03790- 7979 Mar, Acute right-sided low back pain with right-sided sciatica M54.41 [facility] [address] [place] [address] 42825- 4667 Mar, Low back pain M54.5 [facility] [address] [place] [address] 06420 -1674 Mar, Muscle strain of chest wall, initial encounter S29.011A ; Muscle strain of right thigh, initial encounter S76.911A and Acute non- recurrent maxillary sinusitis J01.00 [facility] [address] [place] [address] 17396- 9638 Mar, Benign prostatic hyperplasia, presence of lower urinary tract symptoms unspecified, unspecified morphology N40.0 [facility] [address] [place] [address] 15170- 0045 Jan, Low back pain M54.5 [facility] [address] [place] [address] 00444- 3882 Jan, Low back pain M54.5 ; Essential hypertension I10 ; Hyperlipidemia, unspecified E78.5 ; Anxiety F41.9 ; Moderate episode of recurrent major depressive disorder F33.1 ; Primary insomnia F51.01 ; Exposure to STD Z20.2 ; Encounter for hepatitis C screening test for low risk patient Z11.59 and History of herpes genitalis Z86.19 [facility] [address] [place] [address] 24915- 9002 Dec, [facility] [address] [place] [address] 80601- 0881 Nov, [facility] [address] [place] [address] 00862- 3624 Nov, Anxiety F41.9 ; Cervicalgia M54.2 ; Moderate episode of recurrent major depressive disorder F33.1 and Encounter for immunization Z23 [facility] [id number] [place] [address] 47412- 1512 Oct, [facility] [address] 80071- 6574 Oct, [facility] [address] [place] [address] 76257- 4528 16 Nov, 2015 [facility] [address] 34821- 1998 Oct, [facility] [address] [address]- 4922 Sep, [facility] [address] [place] [address] 89100- 8586 Aug, Low back pain M54.5 ; Anxiety F41.9 ; Primary insomnia F51.01 and Chronic prescription opiate use Z79.899 [facility] [address] [place] [address] 36698- 3540 Jul, [facility] [address] [place] [address] 39519- 1778 Jul, [facility] [address] [place] [address] 86230- 5971 Jul, [facility] [address] [place] [address] 04091- 5726 Jul, [facility] [id number] [place] [address] 23875- 9569 Jul, [facility] [address] [place] [address] 49899- 1348 June, [facility] [id number] [place] [address] 85849- 8596 June, [facility] [address] [place] [address] 59015- 4159 June, [facility] [address] [place] [address] 46301- 8411 June, [facility] [address], [place] [address]- 9367 May, Preoperative cardiovascular examination Z01.810 [facility] [address] [place] [address] 50468- 6429 May, [facility] [address], [place] [address]- 6564 Apr, [facility] [address], [place] [address]- 2368 31 May, 2015 Osteoarthritis of right knee M17.9 [facility] [address] [place] [address] 78313- 5238 30 May, 2015 [facility] [address] [place] [address] 30499- 8817 16 May, 2015 [facility] [address] [place] [address] 31895- 2980 11 May, 2015 [facility] [address] [place] [address] 38655- 0060 09 May, 2015 [facility] [address] [place] [address] 17664- 0976 08 May, 2015 History of excessive cerumen Z78.9 ; Obstructive sleep apnea syndrome G47.33 ; History of diverticulitis Z87.19 and Nephrolithiasis N20.0 [facility] [address], [place] [address]- 4891 29 Apr, 2015 [facility] [address] [place] [address] 23476 -2690 23 Apr, 2015 Abdominal pain R10.9 [facility] [address], [place] [address]- 5526 10 Apr, 2015 [facility] [address] [address]- 7648 04 Apr, 2015 Osteoarthritis of right knee M17.9 [facility] [address], [place] [address]- 0924 Mar, [facility] [address] [place] [address] 71044- 2925 15 Mar, 2015 [facility] [address], [place] [address]- 9578 14 Mar, 2015 [facility] [address] [place] [address] 18920- 8185 Mar, [facility] [address] [place] [address] 30775 -5144 Mar, Pyelonephritis N12 ; Left-sided thoracic back pain M54.6 ; Hematuria, unspecified R31.9 and Kidney stone N20.0 [facility] [address] [place] [address] 45982- 7577 Mar, History of weight loss surgery Z98.84 [facility] [address] [place] [address] 47867- 8440 Mar, History of weight loss surgery Z98.84 and Hyperlipidemia, unspecified E78.5 [facility] [address] 33198- 7169 Mar, Low back pain M54.5 ; Chronic prescription opiate use Z79.899 ; Hyperlipidemia, unspecified E78.5 ; Spasm of back muscles M62.830 and History of weight loss surgery Z98.84 [facility] [address] [place] [address] 84545- 6530 Jan, [facility] [id number] [place] [address] 71049- 6547 Jan, [facility] [address] [place] [address] 64029- 8831 Jan, [facility] [address] [place] [address] 27896- 6028 Dec, [facility] [address] [place] [address] 43013- 8815 Dec, [facility] [address] [place] [address] 18217- 7338 Dec, [facility] [address] [place] [address] 75083- 5003 Nov, [facility] [address] [place] [address] 40340- 6485 Nov, Obstructive sleep apnea syndrome G47.33 and Pharyngoesophageal dysphagia R13.14 [facility] [address] [place] [address] 12682- 8488 Nov, [facility] [address] [place] [address] 56262- 1417 Nov, [facility] [address] [place] [address] 46851- 0513 Nov, [facility] [id number] [place] [address] [id number] 30 Oct, 2014 Dental examination V72.2 [facility] [address] 16753- 4512 Oct, [facility] [address] [place] [address] 83740- 3591 Oct, [facility] [address] [place] [address] 15870- 8106 Oct, [facility] [address] [place] [address] 11756- 4188 Oct, [facility] [address] [place] [address] 74595- 9439 Oct, BPH (benign prostatic hyperplasia) 600.00 and Urinary frequency 788.41 [facility] [address] [place] [address] 98446- 4918 Oct, [facility] [address] [place] [address] 79095- 9076 Oct, [facility] [address] [place] [address] 53972- 6635 Oct, [facility] [address] [place] [address] 15090922- 8700 Sep, Cerumen impaction 380.4 ; Cerumen debris on tympanic membrane 380.4 ; Psoriasis 696.1 and MICKY (secretory otitis media) 381.4 [facility] [id number] [id number] Sep, Dental examination V72.2 [facility] [address] [place] [address] 46901- 4740 Sep, Fatigue 780.79 ; Irritable bowel syndrome 564.1 ; Overweight 278.02 ; Poor sleep V69.4 ; Shaking spells 781.0 and Broken tooth 873.63 [facility] [address] [place] [address] 10856- 3881 Sep, [facility] [address] [place] [address] 24128- 0332 Sep, [facility] [id number] [place] [address] 41743- 9475 Aug, [facility] [address] [place] [address] 16986- 3650 Jul, [facility] [id number] [place] [address] 28148- 3099 Jul, [facility] [id number] [place] [address] 56190- 6056 Jul, [facility] [id number] [place] [address] 64435- 9232 Jul, [facility] [address], [place] [address]- 1503 June, Arthritis of knee, right 716.96 [facility] [address], [place] [address]- 3806 June, [facility] [id number] [place] [address] 00600- 5234 June, Elevated blood pressure reading without diagnosis of hypertension 796.2 [facility] [address] 5066 June, [facility] [id number] [place] [address] 05161- 2462 June, [facility] [place] [facility] [address] [id number] [place] [address]- 0228 June, [facility] [place] [facility] [address] [id number] [place] [address]- 4495 June, [facility] [place] [facility] [address] [id number] [place] [address] May, [facility] [place] [facility] [address] [id number] [place] [address] May, [facility] [place] [facility] [address] [id number] [place] [address] Apr, [facility] [place] [facility] [address] [id number] [place] [address] Apr, [facility] [place] [facility] [address] [id number] [place] [address] Apr, [facility] [place] [facility] [address] [id number] [place] [address] Apr, [facility] [place] [facility] [address] [id number] [place] [address] Apr, [facility] [place] [facility] [address] [id number] [place] [address] Apr, [facility] [place] [facility] [address] [id number] [place] [address] Apr, [facility] [place] [facility] [address] [id number], [place] [address] Apr, [facility] [place] [facility] [address] [id number] [place] [address] Apr, [facility] [place] [facility] [address] [id number] [place] [address] Apr, [facility] [place] [facility] [address] [id number] [place] [address] Apr, [facility] [place] [facility] [address] [facility] [id number] [place] [address] 27 Apr, 2014 [facility] [place] [facility] [address] [id number] [place] [address] 24 Apr, 2014 [facility] [place] [facility] [address] [id number] [place] [address] 24 Apr, 2014 [facility] [place] [facility] [address] [facility] [id number] [place] [address] 23 Apr, 2014 [facility] [place] [facility] [address] [facility] [id number] [place] [address] 23 Apr, 2014 [facility] [place] [facility] [address] [facility] [id number] [place] [address] 20 Apr, 2014 [facility] [place] [facility] [address] [facility] [id number] [place] [address] 20 Apr, 2014 [facility] [place] [facility] [address] [id number] [place] [address] 8547 18 Apr, 2014 [facility] [place] [facility] [address] [facility] [id number] [place] [address] 2636 18 Apr, 2014 [facility] [place] [facility] [address] [id number] [address] 2968 13 Apr, 2014 [facility] [place] [facility] [address] [id number] [address] 13 Apr, 2014 [facility] [place] [facility] [address] [facility] [id number], [place] [address] 2542 13 Apr, 2014 [facility] [place] [facility] [address] [facility] [id number] [place] [address]- 3910 13 Apr, 2014 [facility] [place] [facility] [address] [facility] [id number] [place] [address]- 8286 12 Apr, 2014 [facility] [place] [facility] [address] [facility] [id number], [place] [address] 9[address] 12 Apr, 2014 [facility] [place] [facility] [address] [facility] [id number], [place] [address] 4719 Apr, 2014 [facility] [place] [facility] [address] [id number] [place] [address]- 8556 Apr, 2014 [facility] [place] [facility] [address] [id number] [place] [address] Apr, 2014 [facility] [place] [facility] [address] [id number] [place] [address]- 3426 Apr, 2014 [facility] [place] [facility] [address] [id number] [place] [address]- 8473 Apr, 2014 [facility] [place] [facility] [address] [id number] [place] [address]- 5576 Apr, 2014 [facility] [place] [facility] [address] [id number] [place] [address]- 9090 Apr, 2014 [facility] [place] [facility] [address] [facility] [id number] [place] [address]- 6830 Mar, [facility] [place] [facility] [address] [id number] [place] [address]- 8575 Mar, [facility] [place] [facility] [address] [id number] [place] [address]- 7129 Mar, [facility] [place] [facility] [address] [id number] [place] [address]- 7964 Mar, [facility] [place] [facility] [address] [id number] [place] [address]- 5369 Mar, [facility] [place] [facility] [address] [id number] [place] [address]- 4196 Mar, [facility] [place] [facility] [address] [id number] [place] [address]- 4457 Mar, [facility] [place] [facility] [address] [id number] [place] [address]- 4360 Mar, [facility] [place] [facility] [address] [id number] [place] [address]- 9954 Mar, [facility] [place] [facility] [address] [id number] [place] [address]- 8474 Mar, [facility] [place] [facility] [address] [id number] [place] [address]- 3818 Jan, [facility] [place] [facility] [address] [id number] [place] [address]- 7782 Jan, [facility] [place] [facility] [address] [id number] [place] [address]- 6299 Jan, [facility] [place] [facility] [address] [id number] [place] [address] Jan, [facility] [place] [facility] [address] [id number] [place] [address]- 8703 Jan, [facility] [place] [facility] [address] [id number] [place] [address]- 7738 Jan, [facility] [place] [facility] [address] [id number] [place] [address]- 4715 Jan, [facility] [place] [facility] [address] [id number] [place] [address]- 8836 Jan, [facility] [place] [facility] [address] [id number] [place] [address]- 7398 Jan, [facility] [place] [facility] [address] [id number] [place] [address]- 9551 Jan, [facility] [place] [facility] [address] [id number] [place] [address]- 1795 Jan, [facility] [place] [facility] [address] [id number] [place] [address]- 1795 Jan, [facility] [place] [facility] [address] [id number] [place] [address]- 0954 Dec, [facility] [place] [facility] [address] [id number] [place] [address]- 0811 Dec, [facility] [place] [facility] [address] [id number], [place] [address]- 8345 Dec, [facility] [place] [facility] [address] [id number] [place] [address]- 3096 Dec, [facility] [place] [facility] [address] [id number] [place] [address]- 5311 Dec, [facility] [place] [facility] [address] [id number] [place] [address]- 7747 Dec, [facility] [place] [facility] [address] [id number] [place] [address]- 4523 Dec, [facility] [place] [facility] [address] [id number] [place] [address]- 1996 Dec, [facility] [place] [facility] [address] [id number] [place] [address]- 0667 Dec, [facility] [place] [facility] [address] [id number] [place] [address]- 6220 Dec, [facility] [place] [facility] [address] [id number] [place] [address]- 9035 Nov, [facility] [place] [facility] [address] [id number] [place] [address]- 5825 Nov, [facility] [place] [facility] [address] [id number] [place] [address]- 9840 Nov, [facility] [place] [facility] [address] [id number], [place] [address]- 7521 Nov, [facility] [place] [facility] [address] [id number], [place] [address]- 6811 Nov, [facility] [place] [facility] [address] [id number], [place] [address]- 4332 Nov, [facility] [place] [facility] [address] [id number], [place] [address]- 8454 Nov, [facility] [place] [facility] [address] [id number] [place] [address]- 5899 Nov, [facility] [place] [facility] [address] [id number] [place] [address]- 8802 24 Nov, 2013 [facility] [place] [facility] [address] [id number] [place] [address]- 0308 24 Nov, 2013 [facility] [place] [facility] [address] [id number] [place] [address]- 0727 17 Nov, 2013 [facility] [place] [facility] [address] [id number] [place] [address]- 3314 17 Nov, 2013 [facility] [place] [facility] [address] [id number] [place] [address]- 6719 14 Nov, 2013 [facility] [place] [facility] [address] [id number] [place] [address]- 6800 14 Nov, 2013 [facility] [place] [facility] [address] [id number] [place] [address]- 7240 10 Nov, 2013 [facility] [place] [facility] [address] [id number] [place] [address]- 8401 10 Nov, 2013 [facility] [place] [facility] [address] [id number] [place] [address]- 4116 08 Nov, 2013 [facility] [place] [facility] [address] [id number] [place] [address]- 5144 Nov, [facility] [place] [facility] [address] [id number] [place] [address]- 3564 Nov, [facility] [place] [facility] [address] [id number] [place] [address]- 7314 Nov, [facility] [place] [facility] [address] [id number] [place] [address]- 3883 Oct, [facility] [place] [facility] [address] [id number] [place] [address]- 8957 Oct, [facility] [place] [facility] [address] [id number] [place] [address]- 5319 19 Oct, 2013 [facility] [place] [facility] [address] [id number] [place] [address]- 7785 Oct, [facility] [place] [facility] [address] [id number] [place] [address]- 5295 Oct, [facility] [place] [facility] [address] [id number] [place] [address]- 3814 Oct, [facility] [place] [facility] [address] [id number] [place] [address]- 4729 Oct, [facility] [place] [facility] [address] [id number] [place] [address]- 5530 Oct, [facility] [place] [facility] [address] [id number] [place] [address]- 3942 Oct, [facility] [place] [facility] [address] [id number] [place] [address]- 7426 Oct, [facility] [place] [facility] [address] [id number] [place] [address]- 2879 Sep, [facility] [place] [facility] [address] [id number] [place] [address]- 8089 Sep, [facility] [place] [facility] [address] [id number] [place] [address]- 5060 Sep, [facility] [place] [facility] [address] [id number] [place] [address]- 8168 Sep, [facility] [place] [facility] [address] [id number] [place] [address]- 4764 Sep, [facility] [place] [facility] [address] [id number] [place] [address]- 7477 Sep, [facility] [place] [facility] [address] [id number] [place] [address]- 4086 Sep, [facility] [place] [facility] [address] [id number] [place] [address]- 6592 Sep, [facility] [place] [facility] [address] [id number] [place] [address]- 5935 Sep, [facility] [place] [facility] [address] [id number] [place] [address]- 2176 Sep, [facility] [place] [facility] [address] [id number] [place] [address]- 4153 Sep, [facility] [place] [facility] [address] [id number] [place] [address]- 7007 Sep, [facility] [place] [facility] [address] [id number] [place] [address]- 7812 Sep, [facility] [place] [facility] [address] [id number] [place] [address]- 6565 Sep, [facility] [place] [facility] [address] [id number] [place] [address]- 7228 Sep, [facility] [place] [facility] [address] [id number] [place] [address]- 1712 Sep, [facility] [place] [facility] [address] [id number] [place] [address]- 5351 Sep, [facility] [place] [facility] [address] [id number] [place] [address]- 2092 Sep, [facility] [place] [facility] [address] [id number] [place] [address]- 4430 Sep, [facility] [place] [facility] [address] [id number] [place] [address]- 7283 Sep, [facility] [place] [facility] [address] [id number] [place] [address]- 4298 Sep, [facility] [place] [facility] [address] [id number] [place] [address]- 5884 Sep, [facility] [place] [facility] [address] [id number] [place] [address]- 0604 Sep, [facility] [place] [facility] [address] [id number] [place] [address]- 4077 Sep, [facility] [place] [facility] [address] [id number] [place] [address]- 9661 Sep, [facility] [place] [facility] [address] [id number] [place] [address]- 6729 Aug, 2013 [facility] [place] [facility] [address] [id number] [place] [address]- 6398 Aug, [facility] [place] [facility] [address] [id number] [place] [address]- 4102 Aug, [facility] [place] [facility] [address] [id number] [place] [address]- 8492 Aug, [facility] [place] [facility] [address] [id number] [place] [address]- 0498 Aug, [facility] [place] [facility] [address] [id number] [place] [address]- 9198 Aug, [facility] [place] [facility] [address] [id number] [place] [address]- 7940 Aug, [facility] [place] [facility] [address] [id number] [place] [address]- 3680 Aug, [facility] [place] [facility] [address] [id number] [place] [address]- 7232 Aug, [facility] [place] [facility] [address] [id number] [place] [address]- 2299 Aug, [facility] [place] [facility] [address] [id number] [place] [address]- 2014 Aug, [facility] [place] [facility] [address] [id number] [place] [address]- 5353 Aug, [facility] [place] [facility] [address] [id number] [place] [address]- 4803 Aug, [facility] [place] [facility] [address] [id number] [place] [address]- 9216 Jul, [facility] [place] [facility] [address] [id number] [place] [address]- 6343 Jul, [facility] [place] [facility] [address] [id number] [place] [address]- 2597 Jul, [facility] [place] [facility] [address] [id number] [place] [address]- 7092 Jul, [facility] [place] [facility] [address] [id number] [place] [address]- 3281 Jul, [facility] [place] [facility] [address] [id number] [place] [address]- 3837 Jul, [facility] [place] [facility] [address] [id number] [place] [address]- 5718 Jul, [facility] [place] [facility] [address] [id number] [place] [address]- 6828 June, [facility] [place] [facility] [address] [id number] [place] [address]- 9829 June, [facility] [place] [facility] [address] [id number] [place] [address]- 0046 June, [facility] [place] [facility] [address] [id number] [place] [address]- 5583 June, [facility] [place] [facility] [address] [id number] [place] [address]- 3335 May, [facility] [place] [facility] [address] [id number] [place] [address]- 7469 May, [facility] [place] [facility] [address] [id number] [place] [address]- 4526 May, [facility] [place] [facility] [address] [id number] [place] [address]- 8430 May, [facility] [place] [facility] [address] [id number] [place] [address]- 3627 May, [facility] [place] [facility] [address] [id number] [place] [address]- 8692 May, [facility] [place] [facility] [address] [id number] [place] [address]- 8801 May, [facility] [place] [facility] [address] [id number] [place] [address]- 5440 May, [facility] [place] [facility] [address] [id number] [place] [address]- 9526 May, [facility] [place] [facility] [address] [id number] [place] [address]- 1148 May, [facility] [place] [facility] [address] [id number] [place] [address]- 9958 Apr, [facility] [place] [facility] [address] [id number] [place] [address]- 2079 Apr, [facility] [place] [facility] [address] [id number] [place] [address]- 4174 Apr, [facility] [place] [facility] [address] [facility] [id number] [place] [address]- 5045 Apr, [facility] [place] [facility] [address] [facility] [id number] [place] [address]- 6545 Apr, [facility] [place] [facility] [address] [id number] [place] [address]- 6560 Apr, [facility] [place] [facility] [address] [facility] [id number] [place] [address]- 7455 Apr, [facility] [place] [facility] [address] [facility] [id number] [place] [address]- 6073 Apr, [facility] [place] [facility] [address] [facility] [id number] [place] [address]- 1621 Apr, [facility] [place] [facility] [address] [id number] [place] [address]- 0904 Apr, [facility] [place] [facility] [address] [id number] [place] [address]- 6890 Mar, [facility] [place] [facility] [address] [facility] [id number] [place] [address]- 1503 Mar, [facility] [place] [facility] [address] [facility] [id number] [place] [address]- 4469 Mar, [facility] [address] [id number] [place] [address]- 4110 Mar, [facility] [place] [facility] [address] [id number] [place] [address]- 2016 Mar, [facility] [place] [facility] [address] [facility] [id number] [place] [address]- 5368 Mar, [facility] [place] [facility] [address] [id number] [place] [address]- 9352 Jan, [facility] [place] [facility] [address] [id number] [place] [address]- 3369 Jan, [facility] [place] [facility] [address] [id number] [place] [address]- 6490 Jan, [facility] [place] [facility] [address] [id number] [place] [address]- 9039 Jan, [facility] [place] [facility] [address] [id number], [place] [address]- 4483 Jan, [facility] [place] [facility] [address] [id number] [place] [address]- 0467 Jan, [facility] [place] [facility] [address] [id number] [place] [address]- 3199 Jan, [facility] [place] [facility] [address] [id number], [place] [address]- 3238 Jan, [facility] [place] [facility] [address] [id number], [place] [address]- 9868 Jan, [facility] [place] [facility] [address] [id number], [place] [address]- 4848 Dec, [facility] [place] [facility] [address] [id number], [place] [address]- 8478 Dec, [facility] [place] [facility] [address] [id number], [place] [address]- 2941 Dec, [facility] [place] [facility] [address] [id number] [place] [address]- 9371 Dec, [facility] [place] [facility] [address] [id number] [place] [address]- 4108 Dec, [facility] [place] [facility] [address] [id number] [place] [address]- 5018 Dec, [facility] [place] [facility] [address] [id number] [place] [address]- 2917 Dec, [facility] [place] [facility] [address] [id number] [place] [address]- 5441 Dec, [facility] [place] [facility] [address] [id number] [place] [address]- 5538 Dec, [facility] [place] [facility] [address] [id number] [place] [address]- 5098 Dec, [facility] [place] [facility] [address] [id number] [place] [address]- 1986 Dec, [facility] [place] [facility] [address] [id number] [place] [address]- 9424 Nov, [facility] [place] [facility] [address] [id number] [place] [address]- 4779 Nov, [facility] [place] [facility] [address] [facility] [id number] [place] [address]- 5134 Nov, [facility] [place] [facility] [address] [id number] [place] [address]- 6595 Nov, [facility] [place] [facility] [address] [id number] [place] [address]- 3781 Nov, [facility] [place] [facility] [address] [id number] [place] [address]- 4814 Oct, [facility] [place] [facility] [address] [id number] [place] [address]- 6613 Oct, [facility] [place] [facility] [address] [id number] [place] 2863 Sep, [facility] [place] [facility] [address] [id number] [place] [address]- 0113 Aug, [facility] [address] [id number] [place] [address]- 9541 Aug, [facility] [address] [id number] [place] [address]- 0502 Aug, [facility] [address] [id number] [place] [address] 254 Aug, [facility] [address] [id number] [place] [address]- 7671 Jul, [facility] [address] [id number] [place] [address]- 2546 Jul, [facility] [address] [id number] [place] [address] June, [facility] [address] [id number] [place] [address] June, [facility] [address] [id number] [place] [address] June, [facility] [address] [id number] [place] [address] May, [facility] [address] [id number] [place] [address] May, [facility] [address] [id number] [place] [address] May, [facility] [address] [id number] [place] [address] Apr, [facility] [place] [facility] [address] [id number] [place] [address] Apr, [facility] [address] [id number] [place] [address] Apr, [facility] [address] [id number] [place] [address] 14 Apr, 2012 [facility] [address] [id number] [place] [address] Apr, [facility] [place] [facility] [address] [id number] [place] [address] Apr, [facility] [place] [facility] [address] [id number] [place] [address] Apr, [facility] [place] [facility] [address] [id number] [place] [address]85 Apr, [facility] [address] [id number] [place] [address] Apr, [facility] [place] [facility] [address] [id number] [place] [address] 20 Apr, 2012 [facility] [address] [id number] [place] [address] Apr, [facility] [address] [id number] [place] [address] 07 Apr, 2012 [facility] [address] [id number] [place] [address] 07 Apr, 2012 [facility] [address] [id number] [place] [address] Mar, [facility] [address] [id number] [place] [address] 29[address] Mar, [facility] [place] [facility] [address] [id number] [place] [address] 49[address] 16 Mar, 2012 [facility] [place] [facility] [address] [id number] [place] [address] Mar, [facility] [place] [facility] [address] [id number] [place] [address] Mar, [facility] [place] [facility] [address] [id number] [place] [address] Jan, [facility] [place] [facility] [address] [id number] [place] [address] Jan, [facility] [address] [id number] [place] [address] Jan, [facility] [address] [id number] [place] [address]24 Jan, [facility] [place] [facility] [address] [id number] [place] [address] 1356 14 Jan, 2012 [facility] [address] [id number] [place] [address] 9[address] Jan, [facility] [address] [id number] [place] [address] Jan, [facility] [address] [id number] [place] [address] 117[address] Jan, [facility] [address] [id number] [place] [address] Jan, [facility] [address] [id number] [place] [address] Jan, [facility] [address] [id number] [place] [address] Jan, [facility] [place] [facility] [address] [id number] [place] [address] Jan, [facility] [place] [facility] [address] [id number] [place] [address] Jan, [facility] [place] [facility] [address] [id number] [place] [address] 3768 Jan, [facility] [place] [facility] [address] [id number] [place] [address] Dec, [facility] [place] [facility] [address] [id number] [place] [address] Dec, [facility] [place] [facility] [address] [id number], [place] [address] 19 Jan, 2012 [facility] [place] [facility] [address] [id number] [place] [address]- [address] 19 Jan, 2012 [facility] [place] [facility] [address] [id number] [place] [address]- [address]60 15 Jan, 2012 [facility] [place] [facility] [address] [id number] [place] [address]- [address] 15 Jan, 2012 [facility] [place] [facility] [address] [id number] [place] [address]- [address] 14 Jan, 2012 [facility] [place] [facility] [address] [id number] [place] [address]- [address] 14 Jan, 2012 [facility] [place] [facility] [address] [id number] [place] [address]- [address]255 14 Jan, 2012 [facility] [place] [facility] [address] [id number] [place] [address]- 2431 14 Jan, 2012 [facility] [place] [facility] [address] [id number] [place] [address]- [address] 07 Jan, 2012 [facility] [place] [facility] [address] [id number], [place] [address] 07 Jan, 2012 [facility] [place] [facility] [address] [id number] [place] [address]- [address]261 16 Dec, 2011 [facility] [place] [facility] [address] [id number], [place] [address] 16 Dec, 2011 [facility] [place] [facility] [address] [id number], [place] [address] 13 Nov, 2011 [facility] [place] [facility] [address] [id number] [place] [address]- [address]133 13 Nov, 2011 [facility] [place] [facility] [address] [id number] [place] [address]- [address]486 13 Nov, 2011 [facility] [place] [facility] [address] [id number] [place] [address]- 5859 12 Nov, 2011 [facility] [place] [facility] [address] [id number] [place] [address]- [address]46 Sep, [facility] [address] [id number] [place] [address]- [address]46 Sep, [facility] [place] [facility] [address] [id number] [place] [address]- [address]46 Aug, [facility] [address] [id number] [place] [address]- [address]46 Aug, [facility] [address] [id number] [place] [address]- [address]46 Aug, [facility] [address] [id number] [place] [address]- 2546 Aug, [facility] [address] [id number] [place] [address]- 2546 June, [facility] [address] [id number] [place] [address]- 2546 June, [facility] [address] [id number] [place] [address]- 50[address] May, [facility] [address] [id number] [place] [address]- 2546 Apr, [facility] [address] [id number] [place] [address]- 2546 Apr, [facility] [address] [address] [id number] [place] [address] Apr, [facility] [address] [id number] [place] [address] Apr, [facility] [place] [facility] [address] [id number] [place] [address] Apr, [facility] [place] [facility] [address] [id number] [place] [address] Apr, [facility] [place] [facility] [address] [id number] [place] [address] Mar, [facility] [place] [facility] [address] [id number] [place] [address] Mar, [facility] [place] [facility] [address] [id number] [place] [address] Mar, [facility] [place] [facility] [address] [id number] [place] [address] Jan, [facility] [place] [facility] [address] [id number] [place] [address] Jan, [facility] [place] [facility] [address] [id number] [place] [address] Jan, [facility] [place] [facility] [address] [id number] [place] [address] Jan, [facility] [place] [facility] [address] [id number] [place] [address] Jan, [facility] [place] [facility] [address] [id number] [place] [address] Jan, [facility] [place] [facility] [address] [id number] [place] [address] Jan, [facility] [place] [facility] [address] [id number], [place] [address] Dec, [facility] [place] [facility] [address] [id number], [place] [address] Dec, [facility] [place] [facility] [address] [id number], [place] [address] Nov, [facility] [place] [facility] [address] [id number] [place] [address] Nov, [facility] [place] [facility] [address] [id number], [place] [address] Nov, [facility] [place] [facility] [address] [id number], [place] [address] Nov, [facility] [place] [facility] [address] [id number] [place] [address] 12 Oct, 2010 [facility] [address] [id number] [place] [address] 17 Sep, 2010 [facility] [place] [facility] [address] [id number] [place] [address] Mar, [facility] [address] [id number] [place] [address] Jan, [facility] [place] [facility] [address] [id number] [place] [address] Dec, [facility] [place] [facility] [address] [id number] [place] [address] Dec, [facility] [place] [facility] [address] [id number] [place] [address] Dec, [facility] [place] [facility] [address] [id number] [place] [address] Dec, [facility] [place] [facility] [address] [id number] [place] [address]- [address] 26 Nov, 2009 [facility] [place] [facility] [address] [id number] [place] [address] 15 Nov, 2009 [facility] [place] [facility] [address] [id number] [place] [address] 14 Nov, 2009 [facility] [place] [facility] [address] [id number] [place] [address] 14 Nov, 2009 [facility] [place] [facility] [address] [id number] [place] [address] 13 Oct, 2009 [facility] [place] [facility] [address] [id number] [place] [address] Jul, [facility] [place] [facility] [address] [id number] [place] [address] June, [facility] [place] [facility] [address] [id number] [place] [address] 14 Jun, 2009 [facility] [id number] [address] Apr, [facility] [id number], [place] [address] Mar, [facility] [id number], [place] [address] Jan, [facility] [id number] [place] [address] Jan, [facility] [id number] [place] [address] Dec, [facility] [id number] [place] [address] Dec, [facility] [id number], [place] [address] Dec, [facility] [id number] [place] [address] Dec, [facility] [id number], [place] [address] Nov, [facility] [id number], [place] [address] Jul, [facility] [id number], [place] [address] June, IMMUNIZATIONS No Known Immunizations SOCIAL HISTORY Never Assessed REASON FOR VISIT Controlled medication Refill PLAN OF CARE VITAL SIGNS MEDICATIONS [...] History oxygen dependent at [facility] Medical History colonic polyps Medical History hyperlipidemia [...] History colonoscopy ([place])-normal 2005 Surgical History colonoscopy ([place])-polyp removed 10/2009 Surgical History EGD ([place])-gastritis 10/2009 [...]
--- OUTSIDE RECORDS SUMMARY | 2018-02-26 18:59 | XMS REPORT ---
Author Author GRAHAM CHRIS [facility] Address [address] [place] [address] Care Team Providers Care Legal Support Manager Name Role Phone GRAHAMELLIOTT HANNAHANY Unavailable PROBLEMS Type Condition ICD9-CM Code DJH43-DE Code Onset Dates Condition Status SNOMED Code Problem Pulmonary asbestosis J61 Active 24447392 Problem Left ventricular diastolic dysfunction I51.9 Active 585876409 Problem Chronic gout, unspecified cause, unspecified site [id number].[id number] Active 36392373 Problem Renal cyst, left N28.1 Active 63580675 Problem History of weight loss surgery Z98.84 Active 147153251 Problem Nocturnal hypoxia G47.34 Active 302681599 Problem Obstructive sleep apnea syndrome G47.33 Active 60063464 Problem History of diverticulitis Z87.19 Active [id number] Problem Allergic rhinitis, unspecified allergic rhinitis type J30.9 Active 38473583 Problem Erectile dysfunction due to diseases classified elsewhere N52.1 Active 679491085 Problem Acute right-sided low back pain with right-sided sciatica M54.41 Active 409673547 Problem Psoriasis L40.9 Active 4574674 Problem Essential hypertension I10 Active 86517829 Problem Nephrolithiasis N20.0 Active 61915337 Problem Chronic prescription opiate use Z79.899 Active 995249124 Problem 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 Active 59488811 Problem Benign prostatic hyperplasia, presence of lower urinary tract symptoms unspecified, unspecified morphology N40.0 Active 226417459 Problem Moderate episode of recurrent major depressive disorder F33.1 Active 254189887 Problem Age-related osteoporosis without current pathological fracture M81.0 Active 56494703 Problem Low back pain M54.5 Active 670498484 Problem Anxiety F41.9 Active 99334826 Problem Urge incontinence N39.41 Active 508382568 Problem Hyperlipidemia, unspecified E78.5 Active 40295203 Problem Esophageal stricture K22.2 Active 86508906 Problem Cervicalgia M54.2 Active 6210007660892 Problem Primary insomnia F51.01 Active 291335995 ALLERGIES No Information ENCOUNTERS Encounter Location Date Diagnosis [facility] [id number] [place] [address] 64703- 7914 Oct, [facility] [id number] [place] [address] 54601- 4284 Sep, [facility] [id number] [place] [address] 32361- 3368 Sep, [facility] [id number] [place] [address] 32558- 6163 Aug, [facility] [id number] [place] [address] 63747- 5744 Aug, [facility] [id number] [place] [address] 08227- 2546 Aug, Anxiety F41.9 [facility] [id number] [place] [address] 49313- 2098 Aug, [facility] [id number] [place] [address] 09294- 7020 Jul, [facility] [id number] [place] [address] 95708- 1936 Jul, Anxiety F41.9 [facility] [id number] [place] [address] 54216- 6184 June, Anxiety F41.9 [facility] [id number] [place] [address] 22970- 7253 June, [facility] [id number] [place] [address] 74037- 3004 June, Low back pain M54.5 ; Chronic prescription opiate use Z79.899 ; Candidal intertrigo B37.2 ; Urge incontinence N39.41 ; Essential hypertension I10 ; Moderate episode of recurrent major depressive disorder F33.1 ; Age-related osteoporosis without current pathological fracture M81.0 and BMI 45.0-49.9, adult Z68.42 [facility] [address] [address] 2531 June, [facility] [id number] [place] [address] 53927- 3396 May, Anxiety F41.9 [facility] [id number] [place] [address] 44949- 6416 May, [facility] [id number] [place] [address] 33721- 7656 May, [facility] [id number] [place] [address] 40246- 3927 Apr, Anxiety F41.9 [facility] [id number] [place] [address] 96225- 6366 Apr, [facility] [id number] [place] [address] 91902- 1789 Apr, Low back pain M54.5 [facility] [id number] [place] [address] 08675- 2975 Apr, [facility] [id number] [place] [address] 78605- 0561 Apr, [facility] [id number] [place] [address] 22326- 7967 Apr, Anxiety F41.9 [facility] [id number] [place] [address] 27876- 9738 Apr, Right groin pain R10.31 [facility] [id number] [place] [address] 71217- 7136 Mar, [facility] [id number] [place] [address] 60307- 4700 Mar, [facility] [id number] [place] [address] 18907- 8228 Mar, Anxiety F41.9 [facility] [id number] [place] [address] 22834- 9817 Mar, Low back pain M54.5 [facility] [address] 22899- 3992 Mar, Right groin pain R10.31 ; Low back pain M54.5 and BMI 45.0- 49.9, adult Z68.42 [facility] [address] 54751- 6623 Mar, [facility] [id number] [place] [address] 70924- 6667 Mar, [facility] [facility] [address] 54940- 4535 Mar, [facility] [address] 76177 -9762 Mar, [facility] [id number] [place] [address] 61859 -0134 Mar, Cough R05 ; Pneumonia of right lower lobe due to infectious organism J18.1 and Abnormal chest x-ray R93.8 [facility] [id number] [place] [address] 58278- 4740 Mar, [facility] [id number] [place] [address] 24672- 5250 Mar, [facility] [id number] [place] [address] 00676- 6118 Jan, Anxiety F41.9 [facility] [id number] [place] [address] 58838- 4156 Jan, [facility] [id number] [place] [address] 68052- 6737 Jan, Moderate episode of recurrent major depressive disorder F33.1 [facility] [id number] [place] [address] 61064- 4407 Jan, Subacromial bursitis of right shoulder joint M75.51 ; Shortness of breath on exertion R06.02 and BMI 45.0-49.9, adult Z68.42 [facility] [address] 78017- 2368 Dec, Anxiety F41.9 [facility] [id number] [place] [address] 95371- 8984 Dec, [facility] [address] 63255- 6200 Dec, Low back pain M54.5 [facility] [address] 26192- 0494 Oct, Low back pain M54.5 [facility] [address] 46019- 0369 Sep, [facility] [address] 83185- 9030 Sep, Erectile dysfunction due to diseases classified elsewhere N52.1 [facility] [address] 05381- 7174 Sep, Erectile dysfunction due to diseases classified elsewhere N52.1 [facility] [id number] [place] [address] 94814- 8160 Sep, [facility] [id number] [place] [address] 05945- 0626 Sep, Erectile dysfunction due to diseases classified elsewhere N52.1 [facility] [id number] [place] [address] 19603- 8563 Sep, Low back pain M54.5 and Anxiety F41.9 [facility] [address] 84632 -3164 Aug, Acute allergic rhinitis J30.9 [facility] [id number] [place] [address] 00232- 0981 Aug, [facility] [address] [place] [address]- 0065 Aug, Anxiety F41.9 [facility] [address] 44510- 7855 Jul, Low back pain M54.5 ; Chronic prescription opiate use Z79.899 and Essential hypertension I10 [facility] [id number] [place] [address] 48484- 9376 Jul, Anxiety F41.9 and Low back pain M54.5 [facility] [id number] [place] [address] 29174- 2035 June, [facility] [address] 54139- 5475 June, Anxiety F41.9 [facility] [id number] [place] [address] 42387- 0014 May, Low back pain M54.5 [facility] [id number] [place] [address] 61823- 6378 May, [facility] [id number] [place] [address] 67606- 9103 May, Anxiety F41.9 [facility] [id number] [place] [address] 84003- 7054 Apr, [facility] [id number] [place] [address] 73546- 2848 Apr, Low back pain M54.5 [facility] [id number] [place] [address] 31035- 8750 Apr, Moderate episode of recurrent major depressive disorder F33.1 [facility] [id number] [place] [address] 83490- 2068 Apr, Anxiety F41.9 [facility] [id number] [place] [address] 73379- 4708 Apr, Low back pain M54.5 [facility] [id number] [place] [address] 23398- 1272 15 Apr, 2016 Elevated alkaline phosphatase level R74.8 [facility] [facility] [address] 85563- 9715 10 Apr, 2016 Alkaline phosphatase elevation R74.8 [facility] [facility] [address] 66560- 2059 06 Apr, 2016 Anxiety F41.9 [facility] [facility] [address] 47615- 6185 Apr, Low back pain M54.5 [facility] [facility] [address] 28193- 3751 Apr, History of weight loss surgery Z98.84 ; Encounter for hepatitis C screening test for low risk patient Z11.59 ; History of herpes genitalis Z86.19 ; Essential hypertension I10 ; Hyperlipidemia, unspecified E78.5 ; Exposure to STD Z20.2 and Benign prostatic hyperplasia, presence of lower urinary tract symptoms unspecified, unspecified morphology N40.0 [facility] [id number] [place] [address] 68815- 6250 Apr, [facility] [facility] [address] 39784- 5176 Mar, [facility] [id number] [place] [address] 98495- 5090 Mar, [facility] [id number] [place] [address] 37397- 1820 Mar, [facility] [id number] [place] [address] 70984- 6214 Mar, Acute right-sided low back pain with right-sided sciatica M54.41 [facility] [id number] [place] [address] 71600- 7226 Mar, Low back pain M54.5 [facility] [address] 52891 -2391 Mar, Muscle strain of chest wall, initial encounter S29.011A ; Muscle strain of right thigh, initial encounter S76.911A and Acute non- recurrent maxillary sinusitis J01.00 [facility] [id number] [place] [address] 32222- 2029 Mar, Benign prostatic hyperplasia, presence of lower urinary tract symptoms unspecified, unspecified morphology N40.0 [facility] [id number] [place] [address] 92426- 6836 Jan, Low back pain M54.5 [facility] [id number] [place] [address] 57745- 7879 Jan, Low back pain M54.5 ; Essential hypertension I10 ; Hyperlipidemia, unspecified E78.5 ; Anxiety F41.9 ; Moderate episode of recurrent major depressive disorder F33.1 ; Primary insomnia F51.01 ; Exposure to STD Z20.2 ; Encounter for hepatitis C screening test for low risk patient Z11.59 and History of herpes genitalis Z86.19 [facility] [id number] [place] [address] 86170- 0515 Dec, [facility] [id number] [place] [address] 50770- 1160 Nov, [facility] [facility] [id number] [place] [address] 14779- 8940 Nov, Anxiety F41.9 ; Cervicalgia M54.2 ; Moderate episode of recurrent major depressive disorder F33.1 and Encounter for immunization Z23 [facility] [facility] [id number] [place] [address] 87736- 7327 Oct, [facility] [id number] [place] [address] 32597- 9995 Oct, [facility] [id number] [place] [address] 26189- 5389 16 Nov, 2015 [facility] [facility] [id number] [place] [address] 83500- 2152 Oct, [facility] [address] [address]- 6921 Sep, [facility] [id number] [place] [address] 03947- 9025 Aug, Low back pain M54.5 ; Anxiety F41.9 ; Primary insomnia F51.01 and Chronic prescription opiate use Z79.899 [facility] [id number] [place] [address] 08621- 3198 Jul, [facility] [address], [place] [address]- 7232 Jul, [facility] [id number] [place] [address] 31570- 2325 Jul, [facility] [id number] [place] [address] 54425- 6193 Jul, [facility] [id number] [place] [address] 70376- 5016 Jul, [facility] [address], [place] [address]- 0215 June, [facility] [id number] [place] [address] 70035- 1477 June, [facility] [address], [place] [address]- 7062 June, [facility] [address], [place] [address]- 7696 June, [facility] [address] [address]- 9719 May, Preoperative cardiovascular examination Z01.810 [facility] [address], [place] [address]- 8921 May, [facility] [address] [address]- 0574 Apr, [facility] [id number] [place] [address] 48685- 7260 31 May, 2015 Osteoarthritis of right knee M17.9 [facility] [id number] [place] [address] 97483- 5744 30 May, 2015 [facility] [id number] [place] [address] 56508- 5988 16 May, 2015 [facility] [address] 32349- 9787 11 May, 2015 [facility] [id number] [place] [address] 99002- 0703 09 May, 2015 [facility] [id number] [place] [address] 22782- 9074 08 May, 2015 History of excessive cerumen Z78.9 ; Obstructive sleep apnea syndrome G47.33 ; History of diverticulitis Z87.19 and Nephrolithiasis N20.0 [facility] [id number] [place] [address] 63730- 6138 29 Apr, 2015 [facility] [id number] [place] [address] 86674 -8287 23 Apr, 2015 Abdominal pain R10.9 [facility] [id number] [place] [address] 49511- 6286 10 Apr, 2015 [facility] [id number] [place] [address] 81888- 3864 04 Apr, 2015 Osteoarthritis of right knee M17.9 [facility] [id number] [place] [address] 11074- 1350 Mar, [facility] [id number] [place] [address] 84031- 4586 15 Mar, 2015 [facility] [id number] [place] [address] 04712- 9542 14 Mar, 2015 [facility] [id number] [place] [address] 42068- 7247 Mar, [facility] [address], [place] [address] Mar, Pyelonephritis N12 ; Left-sided thoracic back pain M54.6 ; Hematuria, unspecified R31.9 and Kidney stone N20.0 [facility] [id number] [place] [address] 10933- 9502 Mar, History of weight loss surgery Z98.84 [facility] [address] 25618- 2999 Mar, History of weight loss surgery Z98.84 and Hyperlipidemia, unspecified E78.5 [facility] [address] 80979- 9134 Mar, Low back pain M54.5 ; Chronic prescription opiate use Z79.899 ; Hyperlipidemia, unspecified E78.5 ; Spasm of back muscles M62.830 and History of weight loss surgery Z98.84 [facility] [id number] [place] [address] 88580- 2185 Jan, [facility] [address] 45789- 3421 Jan, [facility] [id number] [place] [address] 10097- 2810 Jan, [facility] [id number] [place] [address] 00851- 0875 Dec, [facility] [id number] [place] [address] 44217- 1570 Dec, [facility] [id number] [place] [address] 35847- 3644 Dec, [facility] [id number] [place] [address] 29304- 7465 Nov, [facility] [id number] [place] [address] 33134- 9432 Nov, Obstructive sleep apnea syndrome G47.33 and Pharyngoesophageal dysphagia R13.14 [facility] [id number] [place] [address] 01782- 7606 Nov, [facility] [id number] [place] [address] 57543- 3482 Nov, [facility] [address] 41262- 2012 Nov, [facility] [address] [id number] Oct, Dental examination V72.2 [facility] [address] 22112- 3977 Oct, [facility] [address] 30890- 4915 Oct, [facility] [address] 50126- 6936 Oct, [facility] [id number] [place] [address] 26929- 8766 Oct, [facility] [address] 36172- 7722 Oct, BPH (benign prostatic hyperplasia) 600.00 and Urinary frequency 788.41 [facility] [id number] [place] [address] 26737- 2322 Oct, [facility] [id number] [place] [address] 87895- 8260 Oct, [facility] [id number] [place] [address] 37450- 7823 Oct, [facility] [id number] [place] [address] 85204- 9535 Sep, Cerumen impaction 380.4 ; Cerumen debris on tympanic membrane 380.4 ; Psoriasis 696.1 and MICKY (secretory otitis media) 381.4 [facility] [address] [place] [id number] Sep, Dental examination V72.2 [facility] [id number] [place] [address] 69981- 1849 Sep, Fatigue 780.79 ; Irritable bowel syndrome 564.1 ; Overweight 278.02 ; Poor sleep V69.4 ; Shaking spells 781.0 and Broken tooth 873.63 [facility] [id number] [place] [address] 93623- 4283 Sep, [facility] [id number] [place] [address] 57434- 7029 Sep, [facility] [id number] [place] [address] 60916- 1107 Aug, [facility] [id number] [place] [address] 96942- 8090 Jul, [facility] [id number] [place] [address] 83928- 9754 Jul, [facility] [address], [place] [address]- 6308 Jul, [facility] [id number] [place] [address] 32106- 5328 Jul, [facility] [address] [address]- 0814 June, Arthritis of knee, right 716.96 [facility] [address], [place] [address]- 5484 June, [facility] [id number] [address]- 6586 June, Elevated blood pressure reading without diagnosis of hypertension 796.2 [facility] [address] [address] 9306 June, [facility] [id number] [place] [address] 12228- 3653 June, [facility] [place] [facility] [address] [id number] [place] [address]- 2186 June, [facility] [place] [facility] [address] [id number] [place] [address]- 0968 June, [facility] [place] [facility] [address] [id number] [place] [address]- 9520 May, [facility] [place] [facility] [address] [id number] [place] [address]- 1082 May, [facility] [place] [facility] [address] [id number] [place] [address]- 0469 Apr, [facility] [place] [facility] [address] [id number] [place] [address]- 0411 Apr, [facility] [place] [facility] [address] [id number] [place] [address]- 7092 Apr, [facility] [place] [facility] [address] [id number] [place] [address]- 3485 Apr, [facility] [place] [facility] [address] [id number] [place] [address]- 8740 Apr, [facility] [place] [facility] [address] [id number] [place] [address]- 0693 Apr, [facility] [place] [facility] [address] [id number] [place] [address] Apr, [facility] [place] [facility] [address] [id number] [place] [address] Apr, [facility] [place] [facility] [address] [id number] [place] [address] Apr, [facility] [place] [facility] [address] [id number] [place] [address] Apr, [facility] [place] [facility] [address] [id number] [place] [address] Apr, [facility] [place] [facility] [address] [id number] [place] [address] Apr, 2014 [facility] [place] [facility] [address] [id number] [place] [address] 24 Apr, 2014 [facility] [place] [facility] [address] [id number] [place] [address] 24 Apr, 2014 [facility] [place] [facility] [address] [facility] [id number] [place] [address] 23 Apr, 2014 [facility] [place] [facility] [address] [id number] [place] [address] 23 Apr, 2014 [facility] [place] [facility] [address] [facility] [id number] [place] [address] 20 Apr, 2014 [facility] [place] [facility] [address] [facility] [id number] [place] [address] 20 Apr, 2014 [facility] [place] [facility] [address] [id number] [address] 18 Apr, 2014 [facility] [place] [facility] [address] [facility] [id number] [place] [address] 18 Apr, 2014 [facility] [place] [facility] [address] [id number] [place] [address] 13 Apr, 2014 [facility] [place] [facility] [address] [id number] [place] [address] 13 Apr, 2014 [facility] [place] [facility] [address] [facility] [id number] [place] [address] 13 Apr, 2014 [facility] [place] [facility] [address] [facility] [place] [id number] [place] [address] 13 Apr, 2014 [facility] [place] [facility] [address] [facility] [id number] [place] [address] 6[address] 12 Apr, 2014 [facility] [place] [facility] [address] [facility] [id number] [place] [address] 4973 12 Apr, 2014 [facility] [place] [facility] [address] [facility] [id number] [place] [address] 2246 Apr, 2014 [facility] [place] [facility] [address] [id number] [place] [address] 1449 Apr, 2014 [facility] [place] [facility] [address] [id number] [place] [address] 9636 Apr, 2014 [facility] [place] [facility] [address] [id number] [place] [address] 4695 Apr, 2014 [facility] [place] [facility] [address] [id number] [place] [address] 1352 Apr, 2014 [facility] [place] [facility] [address] [id number] [place] [address]- 8438 Apr, 2014 [facility] [place] [facility] [address] [id number] [place] [address] 3669 Apr, [facility] [place] [facility] [address] [facility] [id number] [place] [address] 7659 Mar, [facility] [place] [facility] [address] [id number] [place] [address]- 2941 Mar, [facility] [place] [facility] [address] [facility] [id number] [place] [address] 7891 Mar, [facility] [place] [facility] [address] [facility] [id number] [place] [address] 4543 Mar, [facility] [place] [facility] [address] [facility] [id number] [place] [address] 6450 Mar, [facility] [place] [facility] [address] [id number], [place] [address]- 3862 Mar, [facility] [place] [facility] [address] [id number], [place] [address] 8417 Mar, [facility] [place] [facility] [address] [facility] [id number][place] [address] 5867 Mar, [facility] [place] [facility] [address] [facility] [id number][place] [address]- 1094 Mar, [facility] [place] [facility] [address] [id number] [place] [address]- 3471 Mar, [facility] [place] [facility] [address] [id number] [place] [address] Jan, [facility] [place] [facility] [address] [id number] [place] [address] Jan, [facility] [place] [facility] [address] [id number] [place] [address] Jan, [facility] [place] [facility] [address] [id number] [place] [address]- 4915 Jan, [facility] [place] [facility] [address] [id number] [place] [address]- 8271 Jan, [facility] [place] [facility] [address] [id number] [place] [address]- 7262 Jan, [facility] [place] [facility] [address] [id number] [place] [address]- 4109 Jan, [facility] [place] [facility] [address] [id number] [place] [address]- 6014 Jan, [facility] [place] [facility] [address] [id number] [place] [address]- 9777 Jan, [facility] [place] [facility] [address] [id number] [place] [address]- 4763 Jan, [facility] [place] [facility] [address] [id number] [place] [address]- 7382 Jan, [facility] [place] [facility] [address] [id number] [place] [address]- 7512 Jan, [facility] [place] [facility] [address] [id number] [place] [address]- 7386 Dec, [facility] [place] [facility] [address] [id number] [place] [address]- 4979 Dec, [facility] [place] [facility] [address] [id number] [place] [address]- 2629 Dec, [facility] [place] [facility] [address] [id number] [place] [address]- 2097 Dec, [facility] [place] [facility] [address] [id number] [place] [address]- 2023 Dec, [facility] [place] [facility] [address] [id number] [place] [address]- 4667 Dec, [facility] [place] [facility] [address] [id number] [place] [address]- 2944 Dec, [facility] [place] [facility] [address] [id number] [place] [address]- 5566 Dec, [facility] [place] [facility] [address] [id number] [place] [address]- 7462 Dec, [facility] [place] [facility] [address] [id number] [place] [address]- 8567 Dec, [facility] [place] [facility] [address] [id number], [place] [address]- 0751 Nov, [facility] [place] [facility] [address] [id number], [place] [address]- 8952 Nov, [facility] [place] [facility] [address] [id number], [place] [address]- 3124 Nov, [facility] [place] [facility] [address] [id number][place] [address]- 7537 Nov, [facility] [place] [facility] [address] [id number], [place] [address]- 1946 Nov, [facility] [place] [facility] [address] [id number], [place] [address]- 6855 Nov, [facility] [place] [facility] [address] [id number], [place] [address]- 7353 Nov, [facility] [place] [facility] [address] [id number][place] [address]- 3907 Nov, [facility] [place] [facility] [address] [id number] [place] [address]- 3105 24 Nov, 2013 [facility] [place] [facility] [address] [id number] [place] [address]- 6634 24 Nov, 2013 [facility] [place] [facility] [address] [id number] [place] [address]- 5484 17 Nov, 2013 [facility] [place] [facility] [address] [id number] [place] [address]- 8268 17 Nov, 2013 [facility] [place] [facility] [address] [id number] [place] [address]- 5561 14 Nov, 2013 [facility] [place] [facility] [address] [id number] [place] [address]- 1690 14 Nov, 2013 [facility] [place] [facility] [address] [id number] [place] [address]- 0811 10 Nov, 2013 [facility] [place] [facility] [address] [id number] [place] [address]- 4787 10 Nov, 2013 [facility] [place] [facility] [address] [id number] [place] [address]- 4290 08 Nov, 2013 [facility] [place] [facility] [address] [id number] [place] [address]- 9048 08 Nov, 2013 [facility] [place] [facility] [address] [id number] [place] [address]- 6056 Nov, [facility] [place] [facility] [address] [id number] [place] [address]- 4725 Nov, [facility] [place] [facility] [address] [id number] [place] [address]- 1937 26 Oct, 2013 [facility] [place] [facility] [address] [id number] [place] [address]- 2093 26 Oct, 2013 [facility] [place] [facility] [address] [id number] [place] [address]- 8693 19 Oct, 2013 [facility] [place] [facility] [address] [id number] [place] [address]- 4741 Oct, [facility] [place] [facility] [address] [id number] [place] [address]- 8069 Oct, [facility] [place] [facility] [address] [id number] [place] [address]- 3993 Oct, [facility] [place] [facility] [address] [id number] [place] [address]- 5816 Oct, [facility] [place] [facility] [address] [id number] [place] [address]- 8716 Oct, [facility] [place] [facility] [address] [id number] [place] [address]- 2952 Oct, [facility] [place] [facility] [address] [id number] [place] [address]- 4912 Oct, [facility] [place] [facility] [address] [id number] [place] [address]- 0812 Sep, [facility] [place] [facility] [address] [id number] [place] [address]- 4421 Sep, [facility] [place] [facility] [address] [id number] [place] [address]- 8901 Sep, [facility] [place] [facility] [address] [id number] [place] [address]- 4253 Sep, [facility] [place] [facility] [address] [id number] [place] [address]- 2342 Sep, [facility] [place] [facility] [address] [id number] [place] [address]- 9734 Sep, [facility] [place] [facility] [address] [id number] [place] [address]- 0091 Sep, [facility] [place] [facility] [address] [id number] [place] [address]- 0094 Sep, [facility] [place] [facility] [address] [id number] [place] [address]- 7700 Sep, [facility] [place] [facility] [address] [id number] [place] [address]- 6300 Sep, [facility] [place] [facility] [address] [id number] [place] [address]- 0502 Sep, [facility] [place] [facility] [address] [id number] [place] [address]- 0053 Sep, [facility] [place] [facility] [address] [id number] [place] [address]- 1228 Sep, [facility] [place] [facility] [address] [id number] [place] [address]- 1440 Sep, [facility] [place] [facility] [address] [id number] [place] [address]- 6228 Sep, [facility] [place] [facility] [address] [id number] [place] [address]- 4443 Sep, [facility] [place] [facility] [address] [id number] [place] [address]- 5597 Sep, [facility] [place] [facility] [address] [id number] [place] [address]- 6329 Sep, [facility] [place] [facility] [address] [id number] [place] [address]- 7399 Sep, [facility] [place] [facility] [address] [id number] [place] [address]- 6319 Sep, [facility] [place] [facility] [address] [id number] [place] [address]- 7482 Sep, [facility] [place] [facility] [address] [id number] [place] [address]- 3947 Sep, [facility] [place] [facility] [address] [id number] [place] [address]- 0585 Sep, [facility] [place] [facility] [address] [id number] [place] [address]- 6702 Sep, [facility] [place] [facility] [address] [id number] [place] [address]- 2715 Sep, [facility] [place] [facility] [address] [id number] [place] [address]- 6975 Aug, 2013 [facility] [place] [facility] [address] [id number] [place] [address]- 5874 Aug, [facility] [place] [facility] [address] [id number] [place] [address]- 2810 Aug, [facility] [place] [facility] [address] [id number] [place] [address]- 2175 Aug, [facility] [place] [facility] [address] [id number] [place] [address]- 5713 Aug, [facility] [place] [facility] [address] [id number] [place] [address]- 0244 Aug, [facility] [place] [facility] [address] [id number] [place] [address]- 9849 Aug, [facility] [place] [facility] [address] [id number] [place] [address]- 0797 Aug, [facility] [place] [facility] [address] [id number] [place] [address]- 0297 Aug, [facility] [place] [facility] [address] [id number] [place] [address]- 6828 Aug, [facility] [place] [facility] [address] [id number] [place] [address]- 1231 Aug, [facility] [place] [facility] [address] [id number] [place] [address]- 5746 Aug, [facility] [place] [facility] [address] [id number] [place] [address]- 2481 Aug, [facility] [place] [facility] [address] [id number] [place] [address]- 7222 Jul, [facility] [place] [facility] [address] [id number] [place] [address]- 5067 Jul, [facility] [place] [facility] [address] [id number] [id number] [address] Jul, [facility] [place] [facility] [address] [id number] [place] [address]- 2697 Jul, [facility] [place] [facility] [address] [id number] [place] [address]- 2005 Jul, [facility] [place] [facility] [address] [id number] [place] [address]- 2739 Jul, [facility] [place] [facility] [address] [id number] [place] [address]- 4077 Jul, [facility] [place] [facility] [address] [id number] [place] [address]- 8435 June, [facility] [place] [facility] [address] [id number] [place] [address]- 3954 June, [facility] [place] [facility] [address] [id number] [place] [address]- 6414 June, [facility] [place] [facility] [address] [id number] [place] [address]- 9128 June, [facility] [place] [facility] [address] [id number] [place] [address]- 8441 May, [facility] [place] [facility] [address] [id number] [place] [address]- 3464 May, [facility] [place] [facility] [address] [id number] [place] [address]- 8721 May, [facility] [place] [facility] [address] [id number] [place] [address]- 1440 May, [facility] [place] [facility] [address] [id number] [place] [address]- 2741 May, [facility] [place] [facility] [address] [id number] [place] [address]- 1127 May, [facility] [place] [facility] [address] [id number] [place] [address]- 6530 May, [facility] [place] [facility] [address] [id number] [place] [address]- 3994 May, [facility] [place] [facility] [address] [id number] [place] [address]- 2729 May, [facility] [place] [facility] [address] [id number] [place] [address]- 8468 May, [facility] [place] [facility] [address] [id number] [place] [address]- 1874 Apr, [facility] [place] [facility] [address] [id number] [place] [address]- 2441 Apr, [facility] [place] [facility] [address] [id number] [place] [address]- 5127 Apr, [facility] [place] [facility] [address] [id number] [place] [address]- 8642 Apr, [facility] [place] [facility] [address] [id number] [place] [address]- 2212 Apr, [facility] [place] [facility] [address] [id number] [place] [address]- 1222 Apr, [facility] [place] [facility] [address] [id number] [place] [address]- 2498 Apr, [facility] [place] [facility] [address] [facility] [id number] [place] [address]- 6172 Apr, [facility] [place] [facility] [address] [facility] [id number] [place] [address]- 1782 Apr, [facility] [place] [facility] [address] [id number] [place] [address]- 7928 Apr, [facility] [place] [facility] [address] [id number] [place] [address]- 4498 Mar, [facility] [place] [facility] [address] [id number] [place] [address]- 8996 Mar, [facility] [place] [facility] [address] [facility] [id number] [place] [address]- 3297 Mar, [facility] [address] [id number] [place] [address]- 6051 Mar, [facility] [place] [facility] [address] [id number] [place] [address]- 5653 Mar, [facility] [place] [facility] [address] [id number] [place] [address]- 3894 Mar, [facility] [place] [facility] [address] [id number] [place] [address]- 9924 Jan, [facility] [place] [facility] [address] [id number] [place] [address]- 7728 Jan, [facility] [place] [facility] [address] [id number] [place] [address]- 0652 Jan, [facility] [place] [facility] [address] [id number] [place] [address]- 8992 Jan, [facility] [place] [facility] [address] [id number], [place] [address]- 7108 Jan, [facility] [place] [facility] [address] [id number] [place] [address]- 8222 Jan, [facility] [place] [facility] [address] [id number], [place] [address]- 8147 Jan, [facility] [place] [facility] [address] [id number], [place] [address]- 9662 Jan, [facility] [place] [facility] [address] [id number], [place] [address]- 3257 Jan, [facility] [place] [facility] [address] [id number] [place] [address]- 9871 Dec, [facility] [place] [facility] [address] [id number], [place] [address]- 2329 Dec, [facility] [place] [facility] [address] [id number], [place] [address]- 5872 Dec, [facility] [place] [facility] [address] [id number], [place] [address]- 7381 Dec, [facility] [place] [facility] [address] [id number] [place] [address]- 9404 Dec, [facility] [place] [facility] [address] [facility] [id number], [place] [address]- 6992 Dec, [facility] [place] [facility] [address] [facility] [id number] [place] [address]- 8687 Dec, [facility] [place] [facility] [address] [id number], [place] [address]- 1895 Dec, [facility] [place] [facility] [address] [facility] [id number] [place] [address]- 6587 Dec, [facility] [place] [facility] [address] [facility] [id number], [place] [address]- 4210 Dec, [facility] [place] [facility] [address] [id number], [place] [address]- 5271 Dec, [facility] [place] [facility] [address] [facility] [id number], [place] [address]- 8402 Nov, [facility] [place] [facility] [address] [facility] [id number], [place] [address]- 5770 Nov, [facility] [place] [facility] [address] [facility] [id number], [place] [address]- 6448 Nov, [facility] [place] [facility] [address] [facility] [id number], [place] [address]- 9454 Nov, [facility] [place] [facility] [address] [facility] [id number], [place] [address]- 2056 Nov, [facility] [place] [facility] [address] [facility] [id number], [place] [address]- 7691 Oct, [facility] [place] [facility] [address] [facility] [id number], [place] [address]- 3320 Oct, [facility] [place] [facility] [address] [facility] [id number], [place] [address]- 9738 Sep, [facility] [place] [facility] [address] [id number] [place] [address] 2543 Aug, [facility] [place] [facility] [address] [id number] [place] [address]- 2598 Aug, [facility] [place] [facility] [address] [id number] [place] [address]- 2050 Aug, [facility] [place] [facility] [address] [id number] [place] [address]- 2162 Aug, [facility] [place] [facility] [address] [id number] [place] [address]- 8103 Jul, [facility] [place] [facility] [address] [id number] [place] [address]- 0336 Jul, [facility] [place] [facility] [address] [id number] [place] [address]- 1201 June, [facility] [place] [facility] [address] [id number] [place] [address]- 8783 June, [facility] [place] [facility] [address] [id number] [place] [address]- 3546 June, [facility] [place] [facility] [address] [id number] [place] [address]- 6425 May, [facility] [place] [facility] [address] [id number] [place] [address]- 6744 May, [facility] [place] [facility] [address] [id number] [place] [address]- 2546 May, [facility] [place] [facility] [address] [id number] [place] [address]- 2547 18 Apr, 2012 [facility] [place] [facility] [address] [id number] [place] [address]- 2546 18 Apr, 2012 [facility] [place] [facility] [address] [id number] [place] [address]- 2546 15 Apr, 2012 [facility] [place] [facility] [address] [id number] [place] [address]- 7516 14 Apr, 2012 [facility] [address] [id number] [place] [address]- 2704 Apr, [facility] [address] [id number] [place] [address] Apr, [facility] [address] [facility] [id number] [place] [address] Apr, [facility] [place] [facility] [address] [id number] [place] [address] Apr, [facility] [address] [id number] [place] [address] Apr, [facility] [address] [facility] [id number] [place] [address] Apr, [facility] [address] [id number] [address] Apr, [facility] [address] [facility] [id number] [place] [address] Apr, [facility] [address] [facility] [id number] [place] [address] Apr, [facility] [address] [facility] [id number] [place] [address] Mar, [facility] [address] [facility] [id number] [place] [address] Mar, [facility] [place] [facility] [address] [facility] [id number] [place] [address] Mar, [facility] [place] [facility] [address] [facility] [id number] [place] [address] Mar, [facility] [place] [facility] [address] [facility] [id number] [place] [address] Mar, [facility] [place] [facility] [address] [facility] [id number] [place] [address] Jan, [facility] [place] [facility] [address] [id number] [place] [address] 28 Jan, 2012 [facility] [place] [facility] [address] [id number] [place] [address] Jan, [facility] [place] [facility] [address] [id number] [place] [address] Jan, [facility] [place] [facility] [address] [id number] [place] [address] 14 Jan, 2012 [facility] [place] [facility] [address] [id number] [place] [address] 13 Jan, 2012 [facility] [place] [facility] [address] [id number] [place] [address] 13 Jan, 2012 [facility] [place] [facility] [address] [id number] [place] [address] 11 Jan, 2012 [facility] [place] [facility] [address] [id number] [place] [address] Jan, [facility] [place] [facility] [address] [id number] [place] [address] Jan, [facility] [place] [facility] [address] [id number] [place] [address] Jan, [facility] [place] [facility] [address] [id number] [place] [address] Jan, [facility] [place] [facility] [address] [id number] [place] [address] Jan, [facility] [place] [facility] [address] [id number] [place] [address] Jan, [facility] [place] [facility] [address] [id number] [place] [address] Dec, [facility] [place] [facility] [address] [id number] [place] [address] Dec, [facility] [place] [facility] [address] [id number] [place] [address] 19 Jan, 2012 [facility] [place] [facility] [address] [id number] [place] [address] 19 Jan, 2012 [facility] [place] [facility] [address] [id number] [place] [address] 15 Jan, 2012 [facility] [place] [facility] [address] [facility] [id number] [place] [address] 15 Jan, 2012 [facility] [place] [facility] [address] [id number] [place] [address] 14 Jan, 2012 [facility] [place] [facility] [address] [id number] [place] [address] 14 Jan, 2012 [facility] [place] [facility] [address] [id number] [place] [address] 14 Jan, 2012 [facility] [place] [facility] [address] [id number] [place] [address] 8514 14 Jan, 2012 [facility] [place] [facility] [address] [id number] [address] 07 Jan, 2012 [facility] [place] [facility] [address] [id number] [place] [address] 07 Jan, 2012 [facility] [place] [facility] [address] [facility] [id number], [place] [address] 16 Dec, 2011 [facility] [place] [facility] [address] [id number], [place] [address] 16 Dec, 2011 [facility] [place] [facility] [address] [id number], [place] [address] 13 Nov, 2011 [facility] [place] [facility] [address] [id number], [place] [address] 13 Nov, 2011 [facility] [place] [facility] [address] [id number], [place] [address] 13 Nov, 2011 [facility] [place] [facility] [address] [id number], [place] [address] 12 Nov, 2011 [facility] [place] [facility] [address] [id number] [place] [address] Sep, [facility] [address] [id number] [place] [address] Sep, [facility] [place] [facility] [address] [id number] [place] [address] Aug, [facility] [address] [id number] [place] [address] Aug, [facility] [place] [facility] [address] [id number] [place] [address] 8316 Aug, [facility] [address] [id number] [place] [address] Aug, [facility] [place] [facility] [address] [id number] [place] [address] June, [facility] [address] [id number] [place] [address] June, [facility] [address] [id number] [place] [address] May, [facility] [place] [facility] [address] [id number] [place] [address] Apr, [facility] [address] [id number] [place] [address] Apr, [facility] [place] [facility] [address] [id number] [place] [address] Apr, [facility] [place] [facility] [address] [id number] [place] [address]- [address] Apr, [facility] [place] [facility] [address] [id number] [place] [address]- [address] Apr, [facility] [place] [facility] [address] [id number] [place] [address]- [address] Apr, [facility] [place] [facility] [address] [id number] [place] [address]- [address] Mar, [facility] [place] [facility] [address] [id number] [place] [address]- [address] Mar, [facility] [place] [facility] [address] [id number] [place] [address] Mar, [facility] [place] [facility] [address] [id number] [place] [address] Jan, [facility] [place] [facility] [address] [id number] [place] [address] Jan, [facility] [place] [facility] [address] [id number] [place] [address] Jan, [facility] [place] [facility] [address] [id number] [place] [address] Jan, [facility] [place] [facility] [address] [id number] [place] [address] Jan, [facility] [place] [facility] [address] [id number] [place] [address] Jan, [facility] [place] [facility] [address] [id number] [place] [address] Jan, [facility] [place] [facility] [address] [id number] [place] [address] Dec, [facility] [place] [facility] [address] [id number] [place] [address] Dec, [facility] [place] [facility] [address] [id number] [address] Nov, [facility] [place] [facility] [address] [id number] [place] [address] Nov, [facility] [place] [facility] [address] [id number] [place] [address] Nov, [facility] [place] [facility] [address] [id number][place] [address] Nov, [facility] [place] [facility] [address] [id number][place] [address] 12 Oct, 2010 [facility] [place] [facility] [address] [id number] [place] [address] Sep, [facility] [place] [facility] [address] [id number] [place] [address] Mar, [facility] [place] [facility] [address] [id number] [place] [address] Jan, [facility] [place] [facility] [address] [id number] [place] [address] Dec, [facility] [place] [facility] [address] [id number] [place] [address] Dec, [facility] [place] [facility] [address] [id number] [place] [address] Dec, [facility] [place] [facility] [address] [id number] [place] [address] Dec, [facility] [place] [facility] [address] [id number] [place] [address] Nov, [facility] [place] [facility] [address] [id number] [place] [address] 15 Nov, 2009 [facility] [place] [facility] [address] [id number] [place] [address] 14 Nov, 2009 [facility] [place] [facility] [address] [id number], [place] [address] 14 Nov, 2009 [facility] [place] [facility] [address] [id number] [place] [address] 13 Oct, 2009 [facility] [place] [facility] [address] [id number] [place] [address] Jul, [facility] [place] [facility] [address] [id number] [place] [address] June, [facility] [place] [facility] [address] [id number] [place] [address] June, [facility] [place] [facility] [id number] [address] 17 Apr, 2009 [facility] [id number] [address] Mar, [facility] [id number], [place] [address] Jan, [facility] [id number], [place] [address] Jan, [facility] [id number] [address] Dec, [facility] [id number] [place] [address] Dec, [facility] [id number], [place] [address] Dec, [facility] [id number] [place] [address] Dec, [facility] [id number], [place] [address] Nov, [facility] [id number], [place] [address] Jul, [facility] [id number], [place] [address] June, IMMUNIZATIONS No Known Immunizations SOCIAL HISTORY Never Assessed REASON FOR VISIT Medication refill request PLAN OF CARE VITAL SIGNS MEDICATIONS Medication Instructions Dosage Frequency Start Date End Date Duration Status Symbicort 160-4.5 MCG/ACT Inhalation Twice a day 2 puffs 12h 15 Apr, 2017 Active ProAir HFA 108 (90 Base) MCG/ACT Inhalation every 6 hrs 2 puffs as needed 6h Apr, Active RESULTS No Results PROCEDURES No Known procedures INSTRUCTIONS MEDICATIONS ADMINISTERED No Known Medications MEDICAL (GENERAL) HISTORY Type Description Date Medical History hypertension Medical History sleep apnea-did not tolerate CPAP Medical History oxygen dependent at [facility] Medical History colonic polyps Medical History hyperlipidemia [...] colonoscopy (Su)-polyp removed 10/2009 Surgical History EGD ([facility])-gastritis 10/2009 Surgical History gastric sleeve Surgical History [...]
--- OUTSIDE RECORDS SUMMARY | 2018-02-26 19:00 | XMS REPORT ---
Author Author GRAHAM CHRIS [facility] Address [address] [place] [address] Care Team Providers Care Manager Construction Name Role Phone GRAHAMELLIOTT HANNAHANY Unavailable PROBLEMS Type Condition ICD9-CM Code LZX26-WK Code Onset Dates Condition Status SNOMED Code Problem Pulmonary asbestosis J61 Active 90749670 Problem Left ventricular diastolic dysfunction I51.9 Active 490717510 Problem Chronic gout, unspecified cause, unspecified site M1A.[id number] Active 90042080 Problem Renal cyst, left N28.1 Active 29834533 Problem History of weight loss surgery Z98.84 Active 514856321 Problem Nocturnal hypoxia G47.34 Active 866102524 Problem Obstructive sleep apnea syndrome G47.33 Active 97603793 Problem History of diverticulitis Z87.19 Active [id number] Problem Allergic rhinitis, unspecified allergic rhinitis type J30.9 Active 90979964 Problem Erectile dysfunction due to diseases classified elsewhere N52.1 Active 997109889 Problem Acute right-sided low back pain with right-sided sciatica M54.41 Active 750003150 Problem Psoriasis L40.9 Active 8874482 Problem Essential hypertension I10 Active 94676484 Problem Nephrolithiasis N20.0 Active 42370153 Problem Chronic prescription opiate use Z79.899 Active 090051308 Problem 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 Active 27885381 Problem Benign prostatic hyperplasia, presence of lower urinary tract symptoms unspecified, unspecified morphology N40.0 Active 879070043 Problem Moderate episode of recurrent major depressive disorder F33.1 Active 867735441 Problem Age-related osteoporosis without current pathological fracture M81.0 Active 90520371 Problem Low back pain M54.5 Active 641770974 Problem Anxiety F41.9 Active 37264825 Problem Urge incontinence N39.41 Active 396804733 Problem Hyperlipidemia, unspecified E78.5 Active 84687657 Problem Esophageal stricture K22.2 Active 63741226 Problem Cervicalgia M54.2 Active 8763159873031 Problem Primary insomnia F51.01 Active 017293007 ALLERGIES Substance Reaction Event Type Date Status Sulfamethoxazole-Trimethoprim nausea Drug Allergy June, Active Benazepril HCl hypotension Drug Allergy June, Active Ampicillin hives Drug Allergy June, Active ENCOUNTERS Encounter Location Date Diagnosis [facility] [address], [place] [address] Sep, [facility] [id number] [place] [address] 89393- 2202 Sep, [facility] [id number] [place] [address] 92664- 4636 Aug, [facility] [id number] [place] [address] 90093- 6620 Aug, [facility] [id number] [place] [address] 47690- 0336 Aug, Anxiety F41.9 [facility] [id number] [place] [address] 68422- 8548 Aug, [facility] [id number] [place] [address] 42594- 1679 Jul, [facility] [id number] [place] [address] 82840- 6073 Jul, Anxiety F41.9 [facility] [id number] [place] [address] 19990- 3342 June, Anxiety F41.9 [facility] [id number] [place] [address] 99662- 9571 June, [facility] [id number] [place] [address] 65363- 3850 June, Low back pain M54.5 ; Chronic prescription opiate use Z79.899 ; Candidal intertrigo B37.2 ; Urge incontinence N39.41 ; Essential hypertension I10 ; Moderate episode of recurrent major depressive disorder F33.1 ; Age-related osteoporosis without current pathological fracture M81.0 and BMI 45.0-49.9, adult Z68.42 [facility] [id number] [place] [address] 40759- 3263 June, [facility] [address] 91434- 8779 May, Anxiety F41.9 [facility] [address] 48101- 1727 May, [facility] [address] 34442- 5179 May, [facility] [address] 93751- 7478 Apr, Anxiety F41.9 [facility] [address] 10163- 7909 Apr, [facility] [address] 77707- 2657 Apr, Low back pain M54.5 [facility] [id number] [place] [address] 27919- 4639 Apr, [facility] [id number] [place] [address] 28457- 1601 Apr, [facility] [id number] [place] [address] 75445- 3541 Apr, Anxiety F41.9 [facility] [id number] [place] [address] 47306- 9004 Apr, Right groin pain R10.31 [facility] [id number] [place] [address] 91071- 7507 Mar, [facility] [address] 35320- 9511 Mar, [facility] [id number] [place] [address] 99992- 0479 Mar, Anxiety F41.9 [facility] [id number] [place] [address] 55970- 9440 Mar, Low back pain M54.5 [facility] [address] 95946- 8869 Mar, Right groin pain R10.31 ; Low back pain M54.5 and BMI 45.0- 49.9, adult Z68.42 [facility] [address] 18793- 3549 Mar, [facility] [id number] [place] [address] 60017- 5905 Mar, [place] [facility] [address] 47666- 5839 Mar, [facility] [id number] [place] [address] 21802 -6765 Mar, [facility] [id number] [place] [address] 87688 -1217 Mar, Cough R05 ; Pneumonia of right lower lobe due to infectious organism J18.1 and Abnormal chest x-ray R93.8 [facility] [id number] [place] [address] 99591- 4704 Mar, [facility] [id number] [place] [address] 00221- 5022 Mar, [facility] [id number] [place] [address] 86422- 7048 Jan, Anxiety F41.9 [facility] [id number] [place] [address] 24643- 0991 Jan, [facility] [address] 30955- 4614 Jan, Moderate episode of recurrent major depressive disorder F33.1 [facility] [id number] [place] [address] 82814- 4419 Jan, Subacromial bursitis of right shoulder joint M75.51 ; Shortness of breath on exertion R06.02 and BMI 45.0-49.9, adult Z68.42 [facility] [address] 95716- 4498 Dec, Anxiety F41.9 [facility] [address] 52742- 4170 Dec, [facility] [address] 15067- 4722 Dec, Low back pain M54.5 [facility] [address] 84660- 3245 Oct, Low back pain M54.5 [facility] [address] 53142- 1922 Sep, [facility] [address] 20942- 5776 Sep, Erectile dysfunction due to diseases classified elsewhere N52.1 [facility] [address] 17264- 9795 Sep, Erectile dysfunction due to diseases classified elsewhere N52.1 [facility] [id number] [place] [address] 10143- 6221 Sep, [facility] [address] 16550- 3888 Sep, Erectile dysfunction due to diseases classified elsewhere N52.1 [facility] [id number] [place] [address] 82233- 4601 Sep, Low back pain M54.5 and Anxiety F41.9 [facility] [id number] [place] [address] 99676 -8733 Aug, Acute allergic rhinitis J30.9 [facility] [id number] [place] [address] 13576- 0459 Aug, [facility] [id number] [place] [address] 20855- 7871 Aug, Anxiety F41.9 [facility] [address] 52361- 0313 Jul, Low back pain M54.5 ; Chronic prescription opiate use Z79.899 and Essential hypertension I10 [facility] [address] 50292- 9904 Jul, Anxiety F41.9 and Low back pain M54.5 [facility] [id number] [place] [address] 35028- 7278 June, [facility] [address] 48716- 6163 June, Anxiety F41.9 [facility] [id number] [place] [address] 17725- 4879 May, Low back pain M54.5 [facility] [id number] [place] [address] 13576- 0806 May, [facility] [id number] [place] [address] 41475- 1199 May, Anxiety F41.9 [facility] [id number] [place] [address] 70517- 1084 Apr, [facility] [id number] [place] [address] 84552- 8213 Apr, Low back pain M54.5 [facility] [id number] [place] [address] 39650- 5863 Apr, Moderate episode of recurrent major depressive disorder F33.1 [facility] [id number] [place] [address] 51556- 5390 Apr, Anxiety F41.9 [facility] [id number] [place] [address] 86603- 7284 Apr, Low back pain M54.5 [facility] [id number] [place] [address] 60093- 6076 15 Apr, 2016 Elevated alkaline phosphatase level R74.8 [facility] [id number] [place] [address] 39461- 9381 10 Apr, 2016 Alkaline phosphatase elevation R74.8 [facility] [id number] [place] [address] 03082- 4871 06 Apr, 2016 Anxiety F41.9 [facility] [id number] [place] [address] 09450- 5977 Apr, Low back pain M54.5 [facility] [address] 39110- 7833 Apr, Essential hypertension I10 ; History of weight loss surgery Z98.84 ; History of herpes genitalis Z86.19 ; Encounter for hepatitis C screening test for low risk patient Z11.59 ; Hyperlipidemia, unspecified E78.5 ; Benign prostatic hyperplasia, presence of lower urinary tract symptoms unspecified, unspecified morphology N40.0 and Exposure to STD Z20.2 [facility] [id number] [place] [address] 44967- 7802 Apr, [facility] [id number] [place] [address] 13905- 8430 Mar, [facility] [id number] [place] [address] 65159- 2306 Mar, [facility] [id number] [place] [address] 05060- 2589 Mar, [facility] [id number] [place] [address] 28256- 0944 Mar, Acute right-sided low back pain with right-sided sciatica M54.41 [facility] [id number] [place] [address] 15471- 7476 Mar, Low back pain M54.5 [facility] [address] [place] [address]13 13 Mar, 2016 Muscle strain of chest wall, initial encounter S29.011A ; Muscle strain of right thigh, initial encounter S76.911A and Acute non- recurrent maxillary sinusitis J01.00 [facility] [id number] [place] [address] 61630- 9267 Mar, Benign prostatic hyperplasia, presence of lower urinary tract symptoms unspecified, unspecified morphology N40.0 [facility] [address] 35643- 6092 Jan, Low back pain M54.5 [facility] [facility] [address] 33755- 2791 Jan, Low back pain M54.5 ; Essential hypertension I10 ; Hyperlipidemia, unspecified E78.5 ; Anxiety F41.9 ; Moderate episode of recurrent major depressive disorder F33.1 ; Primary insomnia F51.01 ; Exposure to STD Z20.2 ; Encounter for hepatitis C screening test for low risk patient Z11.59 and History of herpes genitalis Z86.19 [facility] [id number] [place] [address] 92422- 3978 Dec, [facility] [id number] [place] [address] 10384- 5871 Nov, [facility] [id number] [place] [address] 08453- 2291 Nov, Anxiety F41.9 ; Cervicalgia M54.2 ; Moderate episode of recurrent major depressive disorder F33.1 and Encounter for immunization Z23 [facility] [id number] [place] [address] 39162- 5951 Oct, [facility] [address] 71825- 4930 Oct, [facility] [id number] [place] [address] 26075- 0609 16 Nov, 2015 [facility] [id number] [place] [address] 94324- 2339 Oct, [facility] [address], [place] [address]- 7996 Sep, [facility] [address] [place] [address] 08753- 4696 Aug, Low back pain M54.5 ; Anxiety F41.9 ; Primary insomnia F51.01 and Chronic prescription opiate use Z79.899 [facility] [address] [place] [address] 89814- 4522 Jul, [facility] [address] [place] [address] 59735- 2473 Jul, [facility] [address] [place] [address] 90188- 6035 Jul, [facility] [id number] [place] [address] 99740- 0645 Jul, [facility] [address], [place] [address]- 0921 Jul, [facility] [address] [place] [address] 89730- 9229 June, [facility] [address], [place] [address]- 5061 June, [facility] [address], [place] [address]- 3553 June, [facility] [address] [address]- 1862 June, [facility] [address] [address]- 2600 May, Preoperative cardiovascular examination Z01.810 [facility] [address], [place] [address]- 5374 May, [facility] [address] [address]- 1141 Apr, [facility] [address] [place] [address] 16145- 8415 31 May, 2015 Osteoarthritis of right knee M17.9 [facility] [id number] [place] [address] 94959- 3932 30 May, 2015 [facility] [id number] [place] [address] 82892- 9452 16 May, 2015 [facility] [id number] [place] [address] 05188- 7816 11 May, 2015 [facility] [id number] [place] [address] 62564- 6925 09 May, 2015 [facility] [id number] [place] [address] 21343- 2974 08 May, 2015 History of excessive cerumen Z78.9 ; Obstructive sleep apnea syndrome G47.33 ; History of diverticulitis Z87.19 and Nephrolithiasis N20.0 [facility] [id number] [place] [address] 89371- 8922 29 Apr, 2015 [facility] [id number] [place] [address] 26298 -1338 23 Apr, 2015 Abdominal pain R10.9 [facility] [id number] [place] [address] 94834- 9217 10 Apr, 2015 [facility] [id number] [place] [address] 37872- 8604 04 Apr, 2015 Osteoarthritis of right knee M17.9 [facility] [address] [place] [address] 71040- 3192 Mar, [facility] [id number] [place] [address] 19268- 3936 15 Mar, 2015 [facility] [id number] [place] [address] 50429- 8689 14 Mar, 2015 [facility] [id number] [place] [address] 55483- 8578 Mar, [facility] [address] [place] [address] 96662 -1757 Mar, Pyelonephritis N12 ; Left-sided thoracic back pain M54.6 ; Hematuria, unspecified R31.9 and Kidney stone N20.0 [facility] [id number] [place] [address] 57538- 3522 Mar, History of weight loss surgery Z98.84 [facility] [id number] [place] [address] 71155- 6573 Mar, History of weight loss surgery Z98.84 and Hyperlipidemia, unspecified E78.5 [facility] [id number] [place] [address] 85847- 5930 Mar, Low back pain M54.5 ; Chronic prescription opiate use Z79.899 ; Hyperlipidemia, unspecified E78.5 ; Spasm of back muscles M62.830 and History of weight loss surgery Z98.84 [facility] [id number] [place] [address] 11334- 2525 Jan, [facility] [id number] [place] [address] 19349- 9957 Jan, [facility] [id number] [place] [address] 16436- 8880 Jan, [facility] [id number] [place] [address] 29404- 6343 Dec, [facility] [id number] [place] [address] 70853- 1959 Dec, [facility] [id number] [place] [address] 58654- 8690 Dec, [facility] [id number] [place] [address] 16976- 9371 Nov, [facility] [id number] [place] [address] 90712- 6032 Nov, Obstructive sleep apnea syndrome G47.33 and Pharyngoesophageal dysphagia R13.14 [facility] [id number] [place] [address] 38045- 2424 Nov, [facility] [id number] [place] [address] 47432- 4275 Nov, [facility] [address] 41087- 0360 Nov, [facility] [address] [id number] Oct, 2014 Dental examination V72.2 [facility] [address] 17203- 0360 Oct, [facility] [address] 21225- 4466 Oct, [facility] [address] 47314- 9626 Oct, [facility] [id number] [place] [address] 84781- 0205 Oct, [facility] [id number] [place] [address] 91482- 6826 Oct, BPH (benign prostatic hyperplasia) 600.00 and Urinary frequency 788.41 [facility] [id number] [place] [address] 26686- 6301 Oct, [facility] [id number] [place] [address] 21418- 5970 Oct, [facility] [id number] [place] [address] 99117- 4361 Oct, [facility] [id number] [place] [address] 09563- 9184 Sep, Cerumen impaction 380.4 ; Cerumen debris on tympanic membrane 380.4 ; Psoriasis 696.1 and MICKY (secretory otitis media) 381.4 [facility] [id number] [id number] Sep, Dental examination V72.2 [facility] [id number] [place] [address] 79599- 3940 Sep, Fatigue 780.79 ; Irritable bowel syndrome 564.1 ; Overweight 278.02 ; Poor sleep V69.4 ; Shaking spells 781.0 and Broken tooth 873.63 [facility] [id number] [place] [address] 57389- 4591 Sep, [facility] [id number] [place] [address] 67215- 0591 Sep, [facility] [id number] [place] [address] 31221- 2356 Aug, [facility] [id number] [place] [address] 86771- 0141 Jul, [facility] [id number] [place] [address] 78876- 1530 Jul, [facility] [id number] [place] [address] 75158- 9585 Jul, [facility] [id number] [place] [address] 45613- 0205 Jul, [facility] [address] [place] [address] 19295- 7372 June, Arthritis of knee, right 716.96 [facility] [address] [address]- 8543 June, [facility] [address], [place] [address]- 6596 June, Elevated blood pressure reading without diagnosis of hypertension 796.2 [facility] [address], [place] [address]- 3822 June, [facility] [id number] [place] [address] 68326- 7026 June, [facility] [place] [facility] [address] [id number] [place] [address]- 6480 June, [facility] [place] [facility] [address] [id number] [place] [address]- 3836 June, [facility] [place] [facility] [address] [id number] [place] [address]- 5840 May, [facility] [place] [facility] [address] [id number] [place] [address]- 8244 May, [facility] [place] [facility] [address] [id number] [place] [address]- 8820 Apr, [facility] [place] [facility] [address] [id number] [place] [address]- 4615 Apr, [facility] [place] [facility] [address] [id number] [place] [address]- 1508 Apr, [facility] [place] [facility] [address] [id number] [place] [address]- 2376 Apr, [facility] [place] [facility] [address] [id number] [place] [address]- 1677 Apr, [facility] [place] [facility] [address] [id number] [place] [address]- 2654 Apr, [facility] [place] [facility] [address] [id number] [place] [address] Apr, [facility] [place] [facility] [address] [id number] [place] [address] Apr, [facility] [place] [facility] [address] [id number] [place] [address] Apr, [facility] [place] [facility] [address] [id number] [place] [address] Apr, [facility] [place] [facility] [address] [id number] [place] [address] Apr, [facility] [place] [facility] [address] [id number] [place] [address] 27 Apr, 2014 [facility] [place] [facility] [address] [id number] [place] [address] 24 Apr, 2014 [facility] [place] [facility] [address] [id number] [place] [address] 24 Apr, 2014 [facility] [place] [facility] [address] [id number] [place] [address] Apr, 2014 [facility] [place] [facility] [address] [id number] [place] [address]- [address] Apr, 2014 [facility] [place] [facility] [address] [id number] [place] [address] 20 Apr, 2014 [facility] [place] [facility] [address] [facility] [id number] [place] [address] 20 Apr, 2014 [facility] [place] [facility] [address] [facility] [id number] [place] [address] 18 Apr, 2014 [facility] [place] [facility] [address] [facility] [id number] [place] [address] 18 Apr, 2014 [facility] [place] [facility] [address] [facility] [id number] [place] [address] 13 Apr, 2014 [facility] [place] [facility] [address] [facility] [id number] [place] [address] 13 Apr, 2014 [facility] [place] [facility] [address] [facility] [facility] [id number], [place] [address] 13 Apr, 2014 [facility] [place] [facility] [address] [facility] [id number] [place] [address]- 2546 13 Apr, 2014 [facility] [place] [facility] [address] [facility] [id number] [place] [address]- 2546 12 Apr, 2014 [facility] [place] [facility] [address] [facility] [id number] [place] [address]- 9776 12 Apr, 2014 [facility] [place] [facility] [address] [facility] [id number] [place] [address]- 0281 Apr, 2014 [facility] [place] [facility] [address] [id number] [place] [address]- 2376 Apr, 2014 [facility] [place] [facility] [address] [id number] [place] [address]- 1096 Apr, 2014 [facility] [place] [facility] [address] [id number] [place] [address]- 3926 Apr, 2014 [facility] [place] [facility] [address] [id number] [place] [address]- 4686 Apr, 2014 [facility] [place] [facility] [address] [id number] [place] [address]- 9766 Apr, 2014 [facility] [place] [facility] [address] [id number] [place] [address]- 3077 Apr, 2014 [facility] [place] [facility] [address] [id number] [place] [address]- 7269 Mar, [facility] [place] [facility] [address] [id number] [place] [address]- 0513 Mar, [facility] [place] [facility] [address] [id number] [place] [address]- 9083 Mar, [facility] [place] [facility] [address] [id number] [place] [address]- 1180 Mar, [facility] [place] [facility] [address] [id number] [place] [address]- 2837 Mar, [facility] [place] [facility] [address] [id number] [place] [address]- 4109 Mar, [facility] [place] [facility] [address] [id number] [place] [address]- 4864 Mar, [facility] [place] [facility] [address] [id number] [place] [address]- 8696 Mar, [facility] [place] [facility] [address] [id number] [place] [address]- 1553 Mar, [facility] [place] [facility] [address] [id number] [place] [address]- 3468 Mar, [facility] [place] [facility] [address] [id number] [place] [address]- 2201 Jan, [facility] [place] [facility] [address] [id number] [place] [address] Jan, [facility] [place] [facility] [address] [id number] [place] [address]- 7718 Jan, [facility] [place] [facility] [address] [id number] [place] [address]- 5195 Jan, [facility] [place] [facility] [address] [id number] [place] [address]- 5316 Jan, [facility] [place] [facility] [address] [id number] [place] [address]- 4945 Jan, [facility] [place] [facility] [address] [id number] [place] [address]- 8865 Jan, [facility] [place] [facility] [address] [id number] [place] [address]- 9890 Jan, [facility] [place] [facility] [address] [id number] [place] [address]- 4299 Jan, [facility] [place] [facility] [address] [id number] [place] [address]- 1979 Jan, [facility] [place] [facility] [address] [id number] [place] [address]- 8353 Jan, [facility] [place] [facility] [address] [id number] [place] [address]- 5633 Jan, [facility] [place] [facility] [address] [id number] [place] [address]- 2928 Dec, [facility] [place] [facility] [address] [id number] [place] [address]- 8689 Dec, [facility] [place] [facility] [address] [id number] [place] [address]- 1838 Dec, [facility] [place] [facility] [address] [id number] [place] [address]- 0566 Dec, [facility] [place] [facility] [address] [id number] [place] [address]- 9827 Dec, [facility] [place] [facility] [address] [id number] [place] [address]- 8333 Dec, [facility] [place] [facility] [address] [id number] [place] [address]- 6049 Dec, [facility] [place] [facility] [address] [id number] [place] [address]- 7956 Dec, [facility] [place] [facility] [address] [id number] [place] [address]- 5880 Dec, [facility] [place] [facility] [address] [id number] [place] [address]- 2201 Dec, [facility] [place] [facility] [address] [id number] [place] [address]- 8459 Nov, [facility] [place] [facility] [address] [id number] [place] [address]- 7529 Nov, [facility] [place] [facility] [address] [id number] [place] [address]- 4318 Nov, [facility] [place] [facility] [address] [id number] [place] [address]- 0281 Nov, [facility] [place] [facility] [address] [id number], [place] [address]- 7841 Nov, [facility] [place] [facility] [address] [id number], [place] [address]- 0130 Nov, [facility] [place] [facility] [address] [id number], [place] [address]- 6748 Nov, [facility] [place] [facility] [address] [id number], [place] [address]- 3729 Nov, [facility] [place] [facility] [address] [id number] [place] [address]- 8265 24 Nov, 2013 [facility] [place] [facility] [address] [id number] [place] [address]- 7133 24 Nov, 2013 [facility] [place] [facility] [address] [id number] [place] [address]- 7889 17 Nov, 2013 [facility] [place] [facility] [address] [id number] [place] [address]- 8763 17 Nov, 2013 [facility] [place] [facility] [address] [id number] [place] [address]- 4009 14 Nov, 2013 [facility] [place] [facility] [address] [id number] [place] [address]- 9647 14 Nov, 2013 [facility] [place] [facility] [address] [id number] [place] [address]- 0493 Nov, [facility] [place] [facility] [address] [id number] [place] [address]- 2470 Nov, [facility] [place] [facility] [address] [id number] [place] [address]- 2614 Nov, [facility] [place] [facility] [address] [id number] [place] [address]- 0603 Nov, [facility] [place] [facility] [address] [id number] [place] [address]- 0016 Nov, [facility] [place] [facility] [address] [id number] [place] [address]- 8675 Nov, [facility] [place] [facility] [address] [id number] [place] [address]- 6678 Oct, [facility] [place] [facility] [address] [id number] [place] [address]- 8639 26 Oct, 2013 [facility] [place] [facility] [address] [id number] [place] [address]- 0857 19 Oct, 2013 [facility] [place] [facility] [address] [id number] [place] [address]- 5667 Oct, [facility] [place] [facility] [address] [id number] [place] [address]- 7162 Oct, [facility] [place] [facility] [address] [id number] [place] [address]- 0007 Oct, [facility] [place] [facility] [address] [id number] [place] [address]- 0105 Oct, [facility] [place] [facility] [address] [id number] [place] [address]- 8021 Oct, [facility] [place] [facility] [address] [id number] [place] [address]- 7845 Oct, [facility] [place] [facility] [address] [id number] [place] [address]- 7525 Oct, [facility] [place] [facility] [address] [id number] [place] [address]- 2856 Sep, [facility] [place] [facility] [address] [id number] [place] [address]- 5056 Sep, [facility] [place] [facility] [address] [id number] [place] [address]- 0339 Sep, [facility] [place] [facility] [address] [id number] [place] [address]- 5200 Sep, [facility] [place] [facility] [address] [id number] [place] [address]- 0161 Sep, [facility] [place] [facility] [address] [id number] [place] [address]- 4555 Sep, [facility] [place] [facility] [address] [id number] [place] [address]- 8487 Sep, [facility] [place] [facility] [address] [id number] [place] [address]- 7668 Sep, [facility] [place] [facility] [address] [id number] [place] [address]- 2506 Sep, [facility] [place] [facility] [address] [id number] [place] [address]- 9917 Sep, [facility] [place] [facility] [address] [id number] [place] [address]- 1586 Sep, [facility] [place] [facility] [address] [id number] [place] [address]- 3459 Sep, [facility] [place] [facility] [address] [id number] [place] [address]- 2349 Sep, [facility] [place] [facility] [address] [id number] [place] [address]- 7157 Sep, [facility] [place] [facility] [address] [id number] [place] [address]- 1499 Sep, [facility] [place] [facility] [address] [id number] [place] [address]- 7558 Sep, [facility] [place] [facility] [address] [id number] [place] [address]- 4225 Sep, [facility] [place] [facility] [address] [id number] [place] [address]- 1561 Sep, [facility] [place] [facility] [address] [id number] [place] [address]- 3465 Sep, [facility] [place] [facility] [address] [id number] [place] [address]- 0227 Sep, [facility] [place] [facility] [address] [id number] [place] [address]- 8572 Sep, [facility] [place] [facility] [address] [id number] [place] [address]- 8996 Sep, [facility] [place] [facility] [address] [id number] [place] [address]- 4694 Sep, [facility] [place] [facility] [address] [id number] [place] [address]- 9000 Sep, [facility] [place] [facility] [address] [id number] [place] [address]- 9612 Sep, [facility] [place] [facility] [address] [id number] [place] [address]- 8779 Aug, [facility] [place] [facility] [address] [id number] [place] [address]- 8716 Aug, [facility] [place] [facility] [address] [id number] [place] [address]- 0162 Aug, [facility] [place] [facility] [address] [id number] [place] [address]- 3320 Aug, [facility] [place] [facility] [address] [id number] [place] [address]- 3921 Aug, [facility] [place] [facility] [address] [id number] [place] [address]- 9338 Aug, [facility] [place] [facility] [address] [id number] [place] [address]- 0429 Aug, [facility] [place] [facility] [address] [id number] [place] [address]- 6897 Aug, [facility] [place] [facility] [address] [id number] [place] [address]- 7677 Aug, [facility] [place] [facility] [address] [id number] [place] [address]- 0951 Aug, [facility] [place] [facility] [address] [id number] [place] [address]- 5863 Aug, [facility] [place] [facility] [address] [id number] [place] [address]- 4654 Aug, [facility] [place] [facility] [address] [id number] [place] [address]- 6526 Aug, [facility] [place] [facility] [address] [id number] [place] [address]- 1199 Jul, [facility] [place] [facility] [address] [id number] [place] [address]- 4078 Jul, [facility] [place] [facility] [address] [id number] [place] [address]- 2665 Jul, [facility] [place] [facility] [address] [id number] [place] [address]- 0744 Jul, [facility] [place] [facility] [address] [id number] [place] [address]- 7338 Jul, [facility] [place] [facility] [address] [id number] [place] [address]- 8851 Jul, [facility] [place] [facility] [address] [id number] [place] [address]- 6923 Jul, [facility] [place] [facility] [address] [id number] [place] [address]- 1673 June, [facility] [place] [facility] [address] [id number] [place] [address]- 9404 June, [facility] [place] [facility] [address] [id number] [place] [address]- 2416 June, [facility] [place] [facility] [address] [id number] [place] [address]- 5162 June, [facility] [place] [facility] [address] [id number] [place] [address]- 8303 May, [facility] [place] [facility] [address] [id number] [place] [address]- 5876 May, [facility] [place] [facility] [address] [id number] [place] [address]- 3535 May, [facility] [place] [facility] [address] [id number] [place] [address]- 3733 May, [facility] [place] [facility] [address] [id number] [place] [address]- 5060 May, [facility] [place] [facility] [address] [id number] [place] [address]- 3574 May, [facility] [place] [facility] [address] [id number] [place] [address]- 9180 May, [facility] [place] [facility] [address] [id number] [place] [address]- 3233 May, [facility] [place] [facility] [address] [id number] [place] [address]- 6943 May, [facility] [place] [facility] [address] [id number] [place] 2790 May, [facility] [place] [facility] [address] [id number] [place] [address]- 1261 Apr, [facility] [place] [facility] [address] [id number] [place] [address]- 1178 Apr, [facility] [place] [facility] [address] [id number] [place] [address]- 5896 Apr, [facility] [place] [facility] [address] [facility] [id number] [place] [address]- 9327 Apr, [facility] [place] [facility] [address] [id number] [place] [address]- 8219 Apr, [facility] [place] [facility] [address] [id number] [place] [address]- 5973 Apr, [facility] [place] [facility] [address] [facility] [id number] [place] [address]- 9346 Apr, [facility] [place] [facility] [address] [facility] [id number] [place] [address]- 2631 Apr, [facility] [place] [facility] [address] [id number] [place] [address]- 4985 Apr, [facility] [place] [facility] [address] [id number] [place] [address]- 4141 Apr, [facility] [place] [facility] [address] [id number] [place] [address]- 0469 Mar, [facility] [place] [facility] [address] [id number] [place] [address]- 0557 Mar, [facility] [place] [facility] [address] [id number] [place] [address]- 2546 Mar, [facility] [place] [facility] [address] [id number] [place] 8285 Mar, [facility] [place] [facility] [address] [id number] [place] [address]- 3165 Mar, [facility] [place] [facility] [address] [id number] [place] [address]- 2944 Mar, [facility] [place] [facility] [address] [id number] [place] [address]- 2807 Jan, [facility] [place] [facility] [address] [id number] [place] 0651 Jan, [facility] [place] [facility] [address] [id number] [place] [address]- 9576 Jan, [facility] [place] [facility] [address] [id number] [place] [address]- 6762 Jan, [facility] [place] [facility] [address] [id number] [place] [address]- 1360 Jan, [facility] [place] [facility] [address] [id number] [place] [address]- 2753 Jan, [facility] [place] [facility] [address] [id number] [place] [address]- 2450 Jan, [facility] [place] [facility] [address] [id number] [place] [address]- 3278 Jan, [facility] [place] [facility] [address] [id number] [place] [address]- 5624 Jan, [facility] [place] [facility] [address] [id number] [place] [address]- 6918 Dec, [facility] [place] [facility] [address] [id number] [place] [address]- 9632 Dec, [facility] [place] [facility] [address] [id number] [place] 7337 Dec, [facility] [place] [facility] [address] [id number] [place] [address]- 5497 Dec, [facility] [address] [id number] [place] [address]- 2370 Dec, [facility] [place] [facility] [address] [id number] [place] [address]- 0872 Dec, [facility] [address] [id number] [place] [address]- 2659 Dec, [facility] [place] [facility] [address] [id number] [place] [address]- 3675 Dec, [facility] [address] [id number] [place] [address]- 8885 Dec, [facility] [place] [facility] [address] [id number] [place] [address]- 8456 Dec, [facility] [place] [facility] [address] [id number] [place] [address]- 6358 Dec, [facility] [address] [id number] [place] [address]- 7045 Nov, [facility] [place] [facility] [address] [id number] [place] [address]- 2297 Nov, [facility] [address] [id number] [place] [address]- 5687 Nov, [facility] [place] [facility] [address] [id number] [place] [address]- 6943 Nov, [facility] [place] [facility] [address] [id number] [place] [address]- 2365 Nov, [facility] [place] [facility] [address] [id number] [place] [address]- 3209 Oct, [facility] [place] [facility] [address] [id number] [place] [address]- 2606 Oct, [facility] [place] [facility] [address] [id number] [place] [address]- 9931 Sep, [facility] [address] [id number] [place] [address]- 5085 Aug, [facility] [place] [facility] [address] [id number] [place] [address]- 4055 Aug, [facility] [place] [facility] [address] [id number] [place] [address]- 0162 Aug, [facility] [place] [facility] [address] [id number] [place] [address]- 6328 Aug, [facility] [address] [id number] [place] 7248 Jul, [facility] [place] [facility] [address] [id number] [place] [address]- 2965 Jul, [facility] [place] [facility] [address] [id number] [place] [address]- 3259 June, [facility] [place] [facility] [address] [id number] [place] [address]- 6920 June, [facility] [place] [facility] [address] [id number] [place] [address]- 0479 June, [facility] [place] [facility] [address] [id number] [place] [address]- 7621 May, [facility] [place] [facility] [address] [id number] [place] [address]- 9043 May, [facility] [place] [facility] [address] [id number], [place] [address]- 0778 May, [facility] [place] [facility] [address] [id number] [place] [address]- 3114 Apr, [facility] [place] [facility] [address] [id number] [place] [address]- 1646 Apr, [facility] [place] [facility] [address] [id number] [place] [address]- 5784 Apr, [facility] [place] [facility] [address] [id number], [place] [address]- 9053 14 Apr, 2012 [facility] [address] [id number] [place] [address] Apr, [facility] [address] [id number] [place] [address] Apr, [facility] [address] [id number] [place] [address] 59[address] Apr, [facility] [address] [id number] [place] [address] Apr, [facility] [address] [id number] [place] [address] Apr, [facility] [address] [id number] [place] [address] 20 Apr, 2012 [facility] [address] [id number] [place] [address] Apr, [facility] [address] [id number] [place] [address] 07 Apr, 2012 [facility] [address] [id number] [place] [address] 07 Apr, 2012 [facility] [address] [id number] [place] [address] 68[address] Mar, [facility] [address] [id number] [place] [address] 2548 Mar, [facility] [address] [id number] [place] [address] 2543 16 Mar, 2012 [facility] [place] [facility] [address] [id number] [place] [address] 2096 Mar, [facility] [place] [facility] [address] [facility] [id number] [place] [address] 77[address] Mar, [facility] [address] [facility] [id number] [place] [address] Jan, [facility] [place] [facility] [address] [id number] [place] [address] 5[address] Jan, [facility] [place] [facility] [address] [id number] [place] [address]- 6766 Jan, [facility] [place] [facility] [address] [id number] [place] [address]- 9464 Jan, [facility] [place] [facility] [address] [id number] [place] [address]- 6786 14 Jan, 2012 [facility] [place] [facility] [address] [id number] [place] [address]- 9535 Jan, [facility] [place] [facility] [address] [id number] [place] [address]- 5730 Jan, [facility] [place] [facility] [address] [id number] [place] [address]- 3508 Jan, [facility] [place] [facility] [address] [id number] [place] [address]- 3209 Jan, [facility] [place] [facility] [address] [id number] [place] [address]- 4235 Jan, [facility] [place] [facility] [address] [id number] [place] [address]- 8206 Jan, [facility] [place] [facility] [address] [id number], [place] [address] 86[address] Jan, [facility] [place] [facility] [address] [id number], [place] [address] 7310 Jan, [facility] [place] [facility] [address] [id number] [place] [address] 6135 Jan, [facility] [place] [facility] [address] [id number] [place] [address]- 2276 Dec, [facility] [place] [facility] [address] [id number] [place] [address]- 4136 Dec, [facility] [place] [facility] [address] [id number][place] [address] 19 Jan, 2012 [facility] [place] [facility] [address] [id number] [place] [address]- 8048 19 Jan, 2012 [facility] [place] [facility] [address] [id number], [place] [address] 68[address] 15 Jan, 2012 [facility] [place] [facility] [address] [facility] [id number] [place] [address] 9713 15 Jan, 2012 [facility] [place] [facility] [address] [id number], [place] [address] 87[address] 14 Jan, 2012 [facility] [place] [facility] [id number] [place] [address], [place] [address]- 6968 14 Jan, 2012 [facility] [place] [facility] [address] [id number] [place] [address]- 8521 14 Jan, 2012 [facility] [place] [facility] [address] [id number], [place] [address] 26[address] 14 Jan, 2012 [facility] [place] [facility] [address] [id number], [place] [address]5 07 Jan, 2012 [facility] [place] [facility] [address] [facility] [id number] [place] [address]- 7578 07 Jan, 2012 [facility] [place] [facility] [address] [facility] [id number], [place] [address] 4136 16 Dec, 2011 [facility] [place] [facility] [address] [facility] [id number], [place] [address] 2909 16 Dec, 2011 [facility] [place] [facility] [address] [id number], [place] [address] 98[address] 13 Nov, 2011 [facility] [place] [facility] [address] [id number], [place] [address]258 13 Nov, 2011 [facility] [place] [facility] [address] [facility] [id number], [place] [address]- 4938 13 Nov, 2011 [facility] [place] [facility] [address] [facility] [id number], [place] [address]- 0950 12 Nov, 2011 [facility] [place] [facility] [address] [id number] [place] [address]- 2548 Sep, [facility] [place] [facility] [address] [id number] [place] [address]- 9776 Sep, [facility] [place] [facility] [address] [id number] [place] [address]- 2546 Aug, [facility] [place] [facility] [address] [id number] [place] [address]- 1036 Aug, [facility] [place] [facility] [address] [id number] [place] [address]- 2830 Aug, [facility] [place] [facility] [address] [id number] [place] [address]- 5596 Aug, [facility] [place] [facility] [address] [id number] [place] [address]- 2546 June, [facility] [place] [facility] [address] [id number] [place] [address]- 2546 June, [facility] [place] [facility] [address] [id number] [place] [address]- 2540 May, [facility] [place] [facility] [address] [id number] [place] [address]- 2316 Apr, [facility] [place] [facility] [address] [id number] [place] [address]- 4356 Apr, [facility] [place] [facility] [address] [id number] [place] [address]- 2546 Apr, [facility] [place] [facility] [address] [id number] [place] [address]- 2547 Apr, [facility] [place] [facility] [address] [id number] [place] [address]- 2546 Apr, [facility] [place] [facility] [address] [id number] [place] [address]- 2546 16 Apr, 2011 [facility] [place] [facility] [address] [id number] [place] [address]- 5393 Mar, [facility] [place] [facility] [address] [id number] [place] [address]- 2942 Mar, [facility] [place] [facility] [address] [id number] [place] [address]- 9836 Mar, [facility] [place] [facility] [address] [id number] [place] [address]- 5126 Jan, [facility] [place] [facility] [address] [id number] [place] [address]- 1140 Jan, [facility] [place] [facility] [address] [id number] [place] [address]- 7190 Jan, [facility] [place] [facility] [address] [id number] [place] [address]- 3316 Jan, [facility] [place] [facility] [address] [id number] [place] [address]- 8382 Jan, [facility] [place] [facility] [address] [id number] [place] [address]- 6036 Jan, [facility] [place] [facility] [address] [id number] [place] [address]- 6747 Jan, [facility] [place] [facility] [address] [id number] [place] [address]- 5364 Dec, [facility] [facility] [address] [id number] [address] Dec, [facility] [facility] [address] [id number], [place] [address] Nov, [facility] [place] [facility] [address] [id number] [place] [address] Nov, [facility] [place] [facility] [address] [id number] [place] [address] Nov, [facility] [place] [facility] [address] [id number] Nov, [facility] [place] [facility] [address] [id number] [place] [address] 12 Oct, 2010 [facility] [address] [id number] [place] [address] Sep, [facility] [address] [id number] [place] [address] 10 Mar, 2010 [facility] [address] [id number] [place] [address] Jan, [facility] [address] [id number] [place] [address] Dec, [facility] [address] [id number] [place] [address] Dec, [facility] [address] [id number] [place] [address] Dec, [facility] [address] [id number] [place] [address] Dec, [facility] [address] [id number] [place] [address] 26 Nov, 2009 [facility] [address] [id number] [place] [address] 15 Nov, 2009 [facility] [address] [id number] [place] [address] 14 Nov, 2009 [facility] [address] [id number] [place] [address] 14 Nov, 2009 [facility] [address] [id number] [place] [address] 13 Oct, 2009 [facility] [address] [id number] [place] [address] Jul, [facility] [address] [id number] [place] [address] June, [facility] [address] [id number] [place] [address] 14 Jun, 2009 [facility] [address] [id number], [place] [address] 17 Apr, 2009 [facility] [id number], [place] [address] Mar, [facility] [address] [id number], [place] [address] Jan, [facility] [id number], [place] [address] Jan, [facility] [id number], [place] [address] Dec, [facility] [id number], [place] [address] Dec, [facility] [id number], [place] [address] Dec, [facility] [id number], [place] [address] Dec, [facility] [id number], [place] [address] Nov, [facility] [id number], [place] [address] Jul, [facility] [address] [id number], [place] [address] June, IMMUNIZATIONS No Known Immunizations SOCIAL HISTORY Never Assessed REASON FOR VISIT Blood Pressure-[facility] PLAN OF CARE Activity Details Follow Up 3 Months Reason:HTN/Chronic pain VITAL SIGNS Height 69 in 2017-07-09 Weight 328 lbs 2017-07-09 Temperature 97.8 degrees Fahrenheit 2017-07-09 Heart Rate 72 bpm 2017-07-09 Respiratory Rate 22 2017-07-09 BMI 48.43 kg/m2 2017-07-09 Blood pressure systolic 120 mmHg 2017-07-09 Blood pressure diastolic 80 mmHg 2017-07-09 MEDICATIONS Medication Instructions Dosage Frequency Start Date End Date Duration Status Endocet 10-325 MG Orally every 4-6 hours 1 tablet as needed Apr, Active DiphenhydrAMINE HCl 50 MG Orally Once a day 1 capsule at bedtime as needed 24h Active Nystatin 860257 UNIT/GM Externally Twice a day 1 application to affected area 12h June, Active Duloxetine HCl 60 MG Orally Once a day 1 capsule 24h 14 Dec, 2015 Active Clonazepam 1 MG Orally Once a day as needed for anxiety 1 tablet June, 28 days Active Allopurinol 100 MG TAKE 1 TABLET BY MOUTH DAILY 30 Active Docusate Sodium 100 MG Orally Once a day 1 capsule as needed 24h Active Viagra 25 MG Orally 0.5-4 hours before intercourse, up to once per day 1 tablet Sep, Active Multivitamin BID May, Active Tizanidine HCl 4 MG TAKE 1 TABLET BY MOUTH THREE TIMES DAILY TO FOUR TIMES DAILY NEEDED 23 Active Flomax 0.4 MG Orally twice a day 1 capsule 30 minutes after the same meal each day 12h Active Fosamax 70 MG Orally once weekly 1 tablet Dec, 90 days Active Fluticasone Propionate 50 MCG/ACT 1 SPRAY INTO EACH NOSTRIL ONCE A DAY 60 Active Omeprazole 20 mg Orally 2 times a day 1 capsule 12h 90 days Active Diclofenac Sodium 75 MG Orally 2 times a day 1 tablet with food or milk 12h 90 Active ProAir HFA 108 (90 Base) MCG/ACT Inhalation every 6 hrs 2 puffs as needed 6h Apr, Active Garlic 1,000 mg 3 Capsule 2 times per day Dec, Active Clobetasol Propionate 0.05 % Externally Twice a day 1 application to affected area 12h Sep, Active Symbicort 160-4.5 MCG/ACT Inhalation Twice a day 2 puffs 12h Apr, Active Metoprolol Tartrate 25 MG Orally Twice a day 1 tablet 12h Active RESULTS No Results PROCEDURES Procedure Date Ordered Result Body Site LAB NOT BILLED BY [employer] July 09, 2017 [facility] VISIT ESTABLISHED PATIENT July 09, 2017 INSTRUCTIONS MEDICATIONS ADMINISTERED No Known Medications MEDICAL (GENERAL) HISTORY Type Description Date Medical History hypertension Medical History sleep apnea-did not tolerate CPAP Medical History oxygen dependent at [facility] Medical History colonic polyps [...]
--- OUTSIDE RECORDS SUMMARY | 2018-02-26 19:01 | XMS REPORT ---
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 Name Role Phone GRAHAMELLIOTT HANNAHANY Unavailable PROBLEMS Type Condition ICD9-CM Code [id number] Code Onset Dates Condition Status SNOMED Code Problem Pulmonary asbestosis J61 Active 44478489 Problem Left ventricular diastolic dysfunction I51.9 Active 245247243 Problem Chronic gout, unspecified cause, unspecified site [id number].[id number] Active 21674286 Problem Renal cyst, left N28.1 Active 72518262 Problem History of weight loss surgery Z98.84 Active 019022745 Problem Nocturnal hypoxia G47.34 Active 227577622 Problem Obstructive sleep apnea syndrome G47.33 Active 92133241 Problem History of diverticulitis Z87.19 Active 722571500265149 Problem Allergic rhinitis, unspecified allergic rhinitis type J30.9 Active 75815725 Problem Erectile dysfunction due to diseases classified elsewhere N52.1 Active 292051060 Problem Acute right-sided low back pain with right-sided sciatica M54.41 Active 721558340 Problem Psoriasis L40.9 Active 0307942 Problem Essential hypertension I10 Active 13518985 Problem Nephrolithiasis N20.0 Active 73988466 Problem Chronic prescription opiate use Z79.899 Active 603731798 Problem 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 Active 10828531 Problem Benign prostatic hyperplasia, presence of lower urinary tract symptoms unspecified, unspecified morphology N40.0 Active 861621012 Problem Moderate episode of recurrent major depressive disorder F33.1 Active 589230136 Problem Age-related osteoporosis without current pathological fracture M81.0 Active 67523232 Problem Low back pain M54.5 Active 141341705 Problem Anxiety F41.9 Active 17492587 Problem Urge incontinence N39.41 Active 400142383 Problem Hyperlipidemia, unspecified E78.5 Active 11531723 Problem Esophageal stricture K22.2 Active 92934256 Problem Cervicalgia M54.2 Active 0302076461984 Problem Primary insomnia F51.01 Active 067408804 ALLERGIES No Information ENCOUNTERS Encounter Location Date Diagnosis [facility] [id number] [place] [address] 29170- 5115 Sep, [facility] [id number] [place] [address] 28444- 2698 Sep, [facility] [address] 06505- 9549 Aug, [facility] [id number] [place] [address] 09782- 1509 Aug, [facility] [address] 21009- 5726 Aug, Anxiety F41.9 [facility] [id number] [place] [address] 85803- 3751 Aug, [facility] [id number] [place] [address] 34811- 4415 Jul, [facility] [id number] [place] [address] 23189- 2317 Jul, Anxiety F41.9 [facility] [id number] [place] [address] 18981- 9413 June, Anxiety F41.9 [facility] [id number] [place] [address] 56782- 6879 June, [facility] [id number] [place] [address] 98689- 0367 June, Low back pain M54.5 ; Chronic prescription opiate use Z79.899 ; Candidal intertrigo B37.2 ; Urge incontinence N39.41 ; Essential hypertension I10 ; Moderate episode of recurrent major depressive disorder F33.1 ; Age-related osteoporosis without current pathological fracture M81.0 and BMI 45.0-49.9, adult Z68.42 [facility] [id number] [place] [address] 32317- 6965 June, [facility] [address] [address]- 2315 May, Anxiety F41.9 [facility] [id number] [place] [address] 265476- 8966 May, [facility] [id number] [place] [address] 88822- 7978 May, [facility] [id number] [place] [address] 12392- 1018 Apr, Anxiety F41.9 [facility] [id number] [place] [address] 04870- 5891 Apr, [facility] [id number] [place] [address] 76733- 0708 Apr, Low back pain M54.5 [facility] [id number] [place] [address] 39874- 9630 Apr, [facility] [id number] [place] [address] 43121- 5165 Apr, [facility] [id number] [place] [address] 54594- 4710 Apr, Anxiety F41.9 [facility] [id number] [place] [address] 77321- 5032 Apr, Right groin pain R10.31 [facility] [id number] [place] [address] 13262- 6368 Mar, [facility] [id number] [place] [address] 87956- 5954 Mar, [facility] [id number] [place] [address] 10818- 9688 Mar, Anxiety F41.9 [facility] [address] [address]- 5987 Mar, Low back pain M54.5 [place] [id number] [place] [address] 46716- 9691 Mar, Right groin pain R10.31 ; Low back pain M54.5 and BMI 45.0- 49.9, adult Z68.42 [place] [id number] [place] [address] 70696- 8806 Mar, [place] [address] 14679- 1653 Mar, [place] [id number] [place] [address] 85363- 9735 Mar, [facility] [address] 16390 -3875 Mar, [facility] [place] [id number] [place] [address] 93550 -0696 Mar, Cough R05 ; Pneumonia of right lower lobe due to infectious organism J18.1 and Abnormal chest x-ray R93.8 [place] [id number] [place] [address] 93579- 2195 Mar, [place] [id number] [place] [address] 02554- 7282 Mar, [place] [id number] [place] [address] 55033- 5738 Jan, Anxiety F41.9 [place] [id number] [place] [address] 82289- 8538 Jan, [place] [id number] [place] [address] 06538- 5877 Jan, Moderate episode of recurrent major depressive disorder F33.1 [place] [id number] [place] [address] 50669- 8112 Jan, Subacromial bursitis of right shoulder joint M75.51 ; Shortness of breath on exertion R06.02 and BMI 45.0-49.9, adult Z68.42 [facility] [address] [address]- 4225 Dec, Anxiety F41.9 [facility] [id number] [place] [address] 34401- 9354 Dec, [facility] [id number] [place] [address] 06776- 0871 Dec, Low back pain M54.5 [facility] [id number] [place] [address] 97691- 9724 Oct, Low back pain M54.5 [facility] [id number] [place] [address] 61412- 2764 Sep, [facility] [id number] [place] [address] 38546- 7922 Sep, Erectile dysfunction due to diseases classified elsewhere N52.1 [facility] [id number] [place] [address] 72396- 0815 Sep, Erectile dysfunction due to diseases classified elsewhere N52.1 [facility] [address] [place] [address] 73119- 9978 Sep, [facility] [id number] [place] [address] 29549- 6824 Sep, Erectile dysfunction due to diseases classified elsewhere N52.1 [facility] [id number] [place] [address] 39018- 6342 Sep, Low back pain M54.5 and Anxiety F41.9 [facility] [id number] [place] [address] 96307 -5036 Aug, Acute allergic rhinitis J30.9 [facility] [id number] [place] [address] 28503- 5830 Aug, [facility] [id number] [place] [address] 14710- 7809 Aug, Anxiety F41.9 [facility] [id number] [place] [address] 74107- 2342 15 Jul, 2016 Low back pain M54.5 ; Chronic prescription opiate use Z79.899 and Essential hypertension I10 [facility] [id number] [place] [address] 62106- 1209 07 Jul, 2016 Anxiety F41.9 and Low back pain M54.5 [facility] [id number] [place] [address] 24057- 7076 June, [facility] [id number] [place] [address] 61917- 3236 June, Anxiety F41.9 [facility] [id number] [place] [address] 45546- 2507 May, Low back pain M54.5 [facility] [id number] [place] [address] 58518- 6591 May, [facility] [id number] [place] [address] 14933- 9791 May, Anxiety F41.9 [facility] [id number] [place] [address] 53650- 8641 Apr, [facility] [id number] [place] [address] 68885- 1530 Apr, Low back pain M54.5 [facility] [id number] [place] [address] 70317- 5796 Apr, Moderate episode of recurrent major depressive disorder F33.1 [facility] [id number] [place] [address] 06304- 2873 Apr, Anxiety F41.9 [facility] [id number] [place] [address] 99110- 3890 Apr, Low back pain M54.5 [facility] [id number] [place] [address] 17081- 2454 Apr, Elevated alkaline phosphatase level R74.8 [place] [id number] [place] [address] 52253- 6019 10 Apr, 2016 Alkaline phosphatase elevation R74.8 [place] [id number] [place] [address] 34777- 6627 06 Apr, 2016 Anxiety F41.9 [place] [id number] [place] [address] 48384- 9547 03 Apr, 2016 Low back pain M54.5 [place] [id number] [place] [address] 39587- 1166 03 Apr, 2016 History of weight loss surgery Z98.84 ; Encounter for hepatitis C screening test for low risk patient Z11.59 ; History of herpes genitalis Z86.19 ; Essential hypertension I10 ; Hyperlipidemia, unspecified E78.5 ; Exposure to STD Z20.2 and Benign prostatic hyperplasia, presence of lower urinary tract symptoms unspecified, unspecified morphology N40.0 [place] [id number] [place] [address] 45814- 5322 02 Apr, 2016 [facility] [id number] [place] [address] 66099- 0011 Mar, [place] [id number] [place] [address] 53526- 7214 Mar, [place] [id number] [place] [address] 69122- 9116 Mar, [place] [id number] [place] [address] 04842- 3923 Mar, Acute right-sided low back pain with right-sided sciatica M54.41 [place] [id number] [place] [address] 31178- 7758 Mar, Low back pain M54.5 [facility] [id number] [place] [address] 16633 -6729 13 Mar, 2016 Muscle strain of chest wall, initial encounter S29.011A ; Muscle strain of right thigh, initial encounter S76.911A and Acute non- recurrent maxillary sinusitis J01.00 [place] [id number] [place] [address] 39546- 6513 Mar, Benign prostatic hyperplasia, presence of lower urinary tract symptoms unspecified, unspecified morphology N40.0 [place] [id number] [place] [address] 00203- 4363 Jan, Low back pain M54.5 [place] [address] 30800- 3341 Jan, Low back pain M54.5 ; Essential hypertension I10 ; Hyperlipidemia, unspecified E78.5 ; Anxiety F41.9 ; Moderate episode of recurrent major depressive disorder F33.1 ; Primary insomnia F51.01 ; Exposure to STD Z20.2 ; Encounter for hepatitis C screening test for low risk patient Z11.59 and History of herpes genitalis Z86.19 [place] [address] 87617- 7615 17 Jan, 2016 [place] [id number] [place] [address] 51629- 4993 Nov, [place] [id number] [place] [address] 43523- 2317 14 Dec, 2015 Anxiety F41.9 ; Cervicalgia M54.2 ; Moderate episode of recurrent major depressive disorder F33.1 and Encounter for immunization Z23 [place] [id number] [place] [address] 87744- 3965 Oct, [place] [id number] [place] [address] 76094- 4937 Oct, [place] [address] 25184- 2258 Oct, [place] [id number] [place] [address] 52421- 9397 Oct, [place] [id number] [place] [address] 10509- 1026 Sep, [facility] [address] [address]- 4884 Aug, Low back pain M54.5 ; Anxiety F41.9 ; Primary insomnia F51.01 and Chronic prescription opiate use Z79.899 [facility] [address] [address]- 1140 Jul, [facility] [id number] [place] [address] 71922- 8408 Jul, [facility] [address] [address]- 9078 Jul, [facility] [id number] [place] [address] 20823- 9101 Jul, [facility] [id number] [place] [address] 53931- 1529 Jul, [facility] [id number] [place] [address] 21658- 9156 June, [facility] [address] [address]- 9577 June, [facility] [id number] [place] [address] 09345- 4214 June, [facility] [id number] [address] 1968 June, [facility] [address] [address]- 4360 May, Preoperative cardiovascular examination Z01.810 [facility] [address] [address]- 9671 May, [facility] [address] [address]- 5071 Apr, [facility] [id number] [address]- 6317 Apr, Osteoarthritis of right knee M17.9 [facility] [address] [place] [address] 61797- 3118 30 May, 2015 [facility] [id number] [place] [address] 48141- 5513 16 May, 2015 [facility] [id number] [place] [address] 70704- 4442 11 May, 2015 [facility] [address] 49951- 1165 09 May, 2015 [facility] [id number] [place] [address] 28785- 0150 08 May, 2015 History of excessive cerumen Z78.9 ; Obstructive sleep apnea syndrome G47.33 ; History of diverticulitis Z87.19 and Nephrolithiasis N20.0 [facility] [id number] [place] [address] 16864- 4173 29 Apr, [address] [facility] [id number] [place] [address] 20975 -4130 23 Apr, 2015 Abdominal pain R10.9 [facility] [id number] [place] [address] 07991- 7381 10 Apr, 2015 [facility] [id number] [place] [address] 77677- 1482 04 Apr, 2015 Osteoarthritis of right knee M17.9 [facility] [id number] [place] [address] 66883- 5252 Mar, [facility] [id number] [place] [address] 17315- 8345 Mar, [facility] [id number] [place] [address] 81879- 6758 14 Mar, 2015 [facility] [id number] [place] [address] 90344- 5494 13 Mar, [address] [facility] [id number] [place] [address] 01161 -0872 Mar, Pyelonephritis N12 ; Left-sided thoracic back pain M54.6 ; Hematuria, unspecified R31.9 and Kidney stone N20.0 [place] [address] 22329- 4060 12 Mar, 2015 History of weight loss surgery Z98.84 [place] [address] 80751- 6830 07 Mar, 2015 History of weight loss surgery Z98.84 and Hyperlipidemia, unspecified E78.5 [place] [address] 27459- 2924 Mar, Low back pain M54.5 ; Chronic prescription opiate use Z79.899 ; Hyperlipidemia, unspecified E78.5 ; Spasm of back muscles M62.830 and History of weight loss surgery Z98.84 [place] [address] 42810- 1765 Jan, [place] [address] 43634- 8817 Jan, [place] [address] 09473- 5739 Jan, [place] [address] 25208- 8710 Dec, [place] [address] 75370- 9294 Dec, [place] [address] 26194- 4687 Dec, [place] [address] 38394- 2172 Nov, [place] [address] 86097- 8303 Nov, Obstructive sleep apnea syndrome G47.33 and Pharyngoesophageal dysphagia R13.14 [place] [address] 08461- 9199 Nov, [facility] [address] [place] [address] 42577- 5868 Nov, [facility] [id number] [place] [address] 78931- 9321 Nov, [facility] [id number] [place] [address] [id number] Oct, Dental examination V72.2 [facility] [id number] [place] [address] 28934- 5883 Oct, [facility] [id number] [place] [address] 03241- 7866 Oct, [facility] [id number] [place] [address] 29891- 8534 Oct, [facility] [id number] [place] [address] 17228- 7895 Oct, [facility] [id number] [place] [address] 24025- 0639 Oct, BPH (benign prostatic hyperplasia) 600.00 and Urinary frequency 788.41 [facility] [id number] [place] [address] 77106- 7213 Oct, [facility] [id number] [place] [address] 75568- 3198 Oct, [facility] [id number] [place] [address] 44499- 3122 Oct, [facility] [id number] [place] [address] 17860- 9744 Sep, Cerumen impaction 380.4 ; Cerumen debris on tympanic membrane 380.4 ; Psoriasis 696.1 and MICKY (secretory otitis media) 381.4 [facility] [id number] [id number] Sep, Dental examination V72.2 [facility] [address] [address]- 9401 Sep, Fatigue 780.79 ; Irritable bowel syndrome 564.1 ; Overweight 278.02 ; Poor sleep V69.4 ; Shaking spells 781.0 and Broken tooth 873.63 [facility] [id number] [address]- 9638 Sep, [facility] [id number] [place] [address] 859638- 9683 Sep, [facility] [id number] [place] [address] 561192- 9927 Aug, [facility] [id number] [place] [address] 05123- 8956 Jul, [facility] [id number] [place] [address] 18669- 8159 Jul, [facility] [id number] [place] [address] 09831- 8139 Jul, [facility] [id number] [place] [address] 43486- 8813 Jul, [facility] [id number] [place] [address] 96045- 6103 June, Arthritis of knee, right 716.96 [facility] [address] [address]- 2056 June, [facility] [id number] [place] [address] 909425- 1531 June, Elevated blood pressure reading without diagnosis of hypertension 796.2 [facility] [id number] [place] [address] [id number] June, [facility] [id number] [place] [address] [id number] June, [facility] [id number] [place] [address] [id number]- [id number] June, [facility] [place] [facility] [address] [id number] [place] [address] June, [facility] [place] [facility] [address] [id number] [place] [address] May, [facility] [place] [facility] [address] [id number] [place] [address] May, [facility] [place] [facility] [address] [id number] [place] [address] Apr, [facility] [place] [facility] [address] [id number] [place] [address] Apr, [facility] [place] [facility] [address] [id number] [place] [address] Apr, [facility] [place] [facility] [address] [id number] [place] [address] Apr, [facility] [place] [facility] [address] [id number] [place] [address] Apr, [facility] [place] [facility] [address] [id number] [place] [address]- [address] Apr, [facility] [place] [facility] [address] [id number] [place] [address] Apr, [facility] [place] [facility] [address] [id number] [place] [address] Apr, [facility] [place] [facility] [address] [id number] [address] Apr, [facility] [place] [facility] [address] [id number] [place] [address]- [address] Apr, [facility] [place] [facility] [address] [id number] [place] [address]- [address] Apr, [facility] [place] [facility] [address] [id number] [place] [address]- [address] Apr, [facility] [place] [facility] [address] [id number] [address] 24 Apr, 2014 [facility] [place] [facility] [address] [id number] [place] [address]- [address] 24 Apr, 2014 [facility] [place] [facility] [address] [facility] [id number] [place] [address]- [address] 23 Apr, 2014 [facility] [place] [facility] [address] [facility] [id number] [place] [address]- [address] 23 Apr, 2014 [facility] [place] [facility] [address] [facility] [id number] [place] [address]- [address] 20 Apr, 2014 [facility] [place] [facility] [address] [facility] [id number] [place] [address]- [address] 20 Apr, 2014 [facility] [place] [facility] [address] [id number] [place] [address] 18 Apr, 2014 [facility] [place] [facility] [address] [id number] [place] [address]- 3879 18 Apr, 2014 [facility] [place] [facility] [address] [facility] [id number] [place] [address]- 0293 13 Apr, 2014 [facility] [place] [facility] [address] [id number] [place] [address]- 2863 13 Apr, 2014 [facility] [place] [facility] [address] [id number] [place] [address]- 8551 13 Apr, 2014 [facility] [place] [facility] [address] [facility] [id number] [place] [address]- 5132 13 Apr, 2014 [facility] [place] [facility] [address] [facility] [id number] [place] [address]- 3972 12 Apr, 2014 [facility] [place] [facility] [address] [facility] [id number] [place] [address]- 5228 12 Apr, 2014 [facility] [place] [facility] [address] [facility] [id number] [place] [address]- 1332 06 Apr, 2014 [facility] [place] [facility] [id number] [address] Apr, 2014 [facility] [place] [facility] [address] [id number] [place] [address]- 2650 Apr, [facility] [place] [facility] [address] [id number] [place] [address]- 6079 Apr, 2014 [facility] [place] [facility] [address] [id number] [place] [address]- 0401 Apr, 2014 [facility] [place] [facility] [address] [id number] [place] [address]- 0948 Apr, [facility] [place] [facility] [address] [id number] [place] [address]- 9224 Apr, [facility] [place] [facility] [address] [id number] [place] [address]- 6896 Mar, [facility] [place] [facility] [address] [id number] [place] [address]- 1763 Mar, [facility] [place] [facility] [address] [id number] [address] 69[address] Mar, [facility] [place] [facility] [address] [id number] [place] [address]- 4960 Mar, [facility] [place] [facility] [address] [facility] [id number] [place] [address]- 9256 Mar, [facility] [place] [facility] [address] [id number] [place] [address]- 3512 Mar, [facility] [place] [facility] [address] [id number] [address]- 8111 Mar, [facility] [place] [facility] [address] [id number] [address]- 3687 Mar, [facility] [place] [facility] [address] [id number] [place] [address]- 3376 Mar, [facility] [place] [facility] [address] [id number] [address]- 6763 Mar, [facility] [place] [facility] [address] [id number] [place] [address]- 0508 Jan, [facility] [place] [facility] [address] [id number] [place] [address]- 0463 Jan, [facility] [place] [facility] [address] [id number] [place] [address]- 1084 Jan, [facility] [place] [facility] [address] [id number] [place] [address]- 6548 Jan, [facility] [place] [facility] [address] [id number] [place] [address]- 7966 Jan, [facility] [place] [facility] [address] [id number] [place] [address]- 6309 Jan, [facility] [place] [facility] [address] [id number] [place] [address]- 8134 Jan, [facility] [place] [facility] [address] [id number] [place] [address]- 4257 Jan, [facility] [place] [facility] [address] [id number] [place] [address]- 5612 Jan, [facility] [place] [facility] [address] [id number] [place] [address]- 6129 Jan, [facility] [place] [facility] [address] [id number] [place] [address]- 1606 Jan, [facility] [place] [facility] [address] [id number] [place] [address]- 0582 Jan, [facility] [place] [facility] [address] [id number] [place] [address]- 7382 Dec, [facility] [place] [facility] [address] [id number] [place] [address]- 4560 Dec, [facility] [place] [facility] [address] [id number] [place] [address] Dec, [facility] [place] [facility] [address] [id number] [place] [address]- 9213 Dec, [facility] [place] [facility] [address] [id number] [place] [address]- 3021 Dec, [facility] [place] [facility] [address] [id number] [place] [address]- 2252 Dec, [facility] [place] [facility] [address] [id number] [place] [address]- 8696 Dec, [facility] [place] [facility] [address] [id number] [place] [address]- 9099 Dec, [facility] [place] [facility] [address] [id number] [place] [address]- 7044 Dec, [facility] [place] [facility] [address] [id number] [place] [address]- 0490 Dec, [facility] [place] [facility] [address] [id number] [place] [address]- 5409 Nov, [facility] [place] [facility] [address] [id number] [place] [address]- 6689 Nov, [facility] [place] [facility] [address] [id number] [place] [address]- 1655 Nov, [facility] [place] [facility] [address] [id number] [place] [address]- 6752 Nov, [facility] [place] [facility] [address] [id number] [place] [address]- 6138 Nov, [facility] [place] [facility] [address] [id number] [place] [address]- 7407 Nov, [facility] [place] [facility] [address] [id number] [place] [address]- 4560 Nov, [facility] [place] [facility] [address] [id number] [place] [address]- 5165 Nov, [facility] [place] [facility] [address] [id number] [place] [address]- 6983 Nov, [facility] [place] [facility] [address] [id number] [place] [address]- 4128 24 Nov, 2013 [facility] [place] [facility] [address] [id number] [place] [address]- 1239 17 Nov, 2013 [facility] [place] [facility] [address] [id number] [place] [address]- 5211 17 Nov, 2013 [facility] [place] [facility] [address] [id number] [place] [address]- 6819 14 Nov, 2013 [facility] [place] [facility] [address] [id number] [place] [address]- 2373 14 Nov, 2013 [facility] [place] [facility] [address] [id number] [place] [address]- 0897 10 Nov, 2013 [facility] [place] [facility] [address] [id number] [place] [address]- 3657 10 Nov, 2013 [facility] [place] [facility] [address] [id number] [place] [address]- 8256 08 Nov, 2013 [facility] [place] [facility] [address] [id number] [place] [address]- 2769 08 Nov, 2013 [facility] [place] [facility] [address] [id number] [place] [address]- 4475 03 Nov, 2013 [facility] [place] [facility] [address] [id number] [place] [address]- 3233 03 Nov, 2013 [facility] [place] [facility] [address] [id number] [place] [address]- 3905 26 Oct, 2013 [facility] [place] [facility] [address] [id number] [place] [address]- 2047 26 Oct, 2013 [facility] [place] [facility] [address] [id number] [place] [address]- 1539 19 Oct, 2013 [facility] [place] [facility] [address] [id number] [place] [address]- 9539 19 Oct, 2013 [facility] [place] [facility] [address] [id number] [place] [address]- 1775 Oct, [facility] [place] [facility] [address] [id number] [place] [address]- 1582 Oct, [facility] [place] [facility] [address] [id number] [place] [address]- 3781 Oct, [facility] [place] [facility] [address] [id number] [place] [address]- 1585 Oct, [facility] [place] [facility] [address] [id number] [place] [address]- 0034 Oct, [facility] [place] [facility] [address] [id number] [place] [address]- 6473 Oct, [facility] [place] [facility] [address] [id number] [place] [address]- 5154 Sep, [facility] [place] [facility] [address] [id number] [place] [address]- 1672 Sep, [facility] [place] [facility] [address] [id number] [place] [address]- 4264 Sep, [facility] [place] [facility] [address] [id number] [place] [address]- 2570 Sep, [facility] [place] [facility] [address] [id number] [place] [address]- 3463 Sep, [facility] [place] [facility] [address] [id number] [place] [address]- 0241 Sep, [facility] [place] [facility] [address] [id number] [place] [address]- 6089 Sep, [facility] [place] [facility] [address] [id number] [place] [address]- 5212 Sep, [facility] [place] [facility] [address] [id number] [place] [address]- 4222 Sep, [facility] [place] [facility] [address] [id number] [place] [address]- 0755 Sep, [facility] [place] [facility] [address] [id number] [place] [address]- 1472 Sep, [facility] [place] [facility] [address] [id number] [place] [address]- 0544 Sep, [facility] [place] [facility] [address] [id number] [place] [address]- 4484 Sep, [facility] [place] [facility] [address] [id number] [place] [address]- 3047 Sep, [facility] [place] [facility] [address] [id number] [place] [address]- 0467 Sep, [facility] [place] [facility] [address] [id number] [place] [address]- 2616 Sep, [facility] [place] [facility] [address] [id number] [place] [address]- 8059 Sep, [facility] [place] [facility] [address] [id number] [place] [address]- 3539 Sep, [facility] [place] [facility] [address] [id number] [place] [address]- 8698 Sep, [facility] [place] [facility] [address] [id number] [place] [address]- 4816 Sep, [facility] [place] [facility] [address] [id number] [place] [address]- 2177 Sep, [facility] [place] [facility] [address] [id number] [place] [address]- 3630 Sep, [facility] [place] [facility] [address] [id number] [place] [address]- 9169 Sep, [facility] [place] [facility] [address] [id number] [place] [address]- 0124 Sep, [facility] [place] [facility] [address] [id number] [place] [address]- 4118 Sep, [facility] [place] [facility] [address] [id number] [place] [address]- 7461 Aug, [facility] [place] [facility] [address] [id number] [place] [address]- 3428 Aug, 2013 [facility] [place] [facility] [address] [id number] [place] [address]- 5634 Aug, [facility] [place] [facility] [address] [id number] [place] [address]- 1393 Aug, [facility] [place] [facility] [address] [id number] [place] [address]- 7148 Aug, [facility] [place] [facility] [address] [id number] [place] [address]- 9033 Aug, [facility] [place] [facility] [address] [id number] [place] [address]- 3065 Aug, [facility] [place] [facility] [address] [id number] [place] [address]- 4948 Aug, [facility] [place] [facility] [address] [id number] [place] [address]- 4500 Aug, 2013 [facility] [place] [facility] [address] [id number] [place] [address]- 0119 Aug, [facility] [place] [facility] [address] [id number] [place] [address]- 9377 Aug, [facility] [place] [facility] [address] [id number] [place] [address]- 1093 Aug, [facility] [place] [facility] [address] [id number] [place] [address]- 8085 Aug, [facility] [place] [facility] [address] [id number] [place] [address]- 0537 Jul, [facility] [place] [facility] [address] [id number] [place] [address]- 0154 Jul, [facility] [place] [facility] [address] [id number] [place] [address]- 4334 Jul, [facility] [place] [facility] [address] [id number] [place] [address]- 1444 Jul, [facility] [place] [facility] [address] [id number] [place] [address]- 6064 Jul, [facility] [place] [facility] [address] [id number] [place] [address]- 2582 Jul, [facility] [place] [facility] [address] [id number] [place] [address]- 5200 Jul, [facility] [place] [facility] [address] [id number] [place] [address]- 7742 June, [facility] [place] [facility] [address] [id number] [place] [address]- 5847 June, [facility] [place] [facility] [address] [id number] [place] [address]- 4942 June, [facility] [place] [facility] [address] [id number] [place] [address]- 0607 June, [facility] [place] [facility] [address] [id number] [place] [address]- 6485 May, [facility] [place] [facility] [address] [id number] [place] [address]- 5233 May, [facility] [place] [facility] [address] [id number] [place] [address]- 9853 May, [facility] [place] [facility] [address] [id number] [place] [address]- 5829 May, [facility] [place] [facility] [address] [id number] [place] [address]- 4302 May, [facility] [place] [facility] [address] [id number] [place] [address]- 1245 May, [facility] [place] [facility] [address] [id number] [place] [address]- 5782 May, [facility] [place] [facility] [address] [id number] [place] [address]- 5852 May, [facility] [place] [facility] [address] [id number] [place] [address]- 4996 May, [facility] [place] [facility] [address] [id number] [place] [address]- 4094 May, [facility] [place] [facility] [address] [id number] [place] [address]- 3576 Apr, [facility] [place] [facility] [address] [id number] [place] [address]- 7431 Apr, [facility] [place] [facility] [address] [id number] [place] [address]- 8108 Apr, [facility] [place] [facility] [address] [id number] [place] [address]- 8445 Apr, [facility] [place] [facility] [address] [id number] [place] [address]- 8931 Apr, [facility] [place] [facility] [address] [id number] [place] [address]- 7691 Apr, [facility] [place] [facility] [address] [id number] [place] [address]- 5232 Apr, [facility] [place] [facility] [address] [id number] [place] [address]- 8687 Apr, [facility] [place] [facility] [address] [facility] [id number] [place] [address]- 9002 Apr, [facility] [place] [facility] [address] [facility] [id number] [place] [address]- 7271 Apr, [facility] [place] [facility] [address] [id number] [address]- 5967 Mar, [facility] [place] [facility] [address] [id number] [place] [address]- 7279 Mar, [facility] [place] [facility] [address] [id number] [place] [address]- 4334 Mar, [facility] [place] [facility] [address] [id number] [place] [address]- 7935 Mar, [facility] [address] [id number] [place] [address]- 7986 Mar, [facility] [place] [facility] [address] [id number] [place] [address]- 6357 Mar, [facility] [place] [facility] [address] [id number] [place] [address]273 Jan, [facility] [place] [facility] [address] [id number] [place] [address]- 9196 Jan, [facility] [place] [facility] [address] [id number] [place] [address]- 4731 Jan, [facility] [place] [facility] [address] [id number] [place] [address]- 2218 Jan, [facility] [place] [facility] [address] [id number] [place] [address]- 6320 Jan, [facility] [place] [facility] [address] [id number] [place] [address]- 4798 Jan, [facility] [place] [facility] [address] [id number] [place] [address]- 8802 Jan, [facility] [place] [facility] [address] [id number] [place] [address]- 6203 Jan, [facility] [place] [facility] [address] [id number] [place] [address]- 1957 Jan, [facility] [place] [facility] [address] [id number] [place] [address]- 2354 Dec, [facility] [place] [facility] [address] [id number] [place] [address]- 8410 Dec, [facility] [place] [facility] [address] [id number] [place] [address]- 6701 Dec, [facility] [place] [facility] [address] [id number] [place] [address]- 7531 Dec, [facility] [place] [facility] [address] [id number] [place] [address]- 1115 Dec, [facility] [place] [facility] [address] [id number] [place] [address]- 7113 Dec, [facility] [place] [facility] [address] [id number] [place] [address]- 5436 Dec, [facility] [place] [facility] [address] [facility] [id number] [place] [address]- 0605 Dec, [facility] [place] [facility] [address] [id number] [place] [address]- 3559 Dec, [facility] [place] [facility] [address] [facility] [id number] [place] [address]- 3403 Dec, [facility] [place] [facility] [address] [facility] [id number] [place] [address]- 3553 Dec, [facility] [place] [facility] [address] [id number] [address]- 0814 Nov, [facility] [place] [facility] [address] [id number] [place] [address]- 6751 Nov, [facility] [place] [facility] [address] [id number] [address]- 7525 Nov, [facility] [place] [facility] [address] [facility] [id number] [place] [address]- 8227 Nov, [facility] [place] [facility] [address] [facility] [id number] [place] [address]- 4593 Nov, [facility] [place] [facility] [address] [facility] [id number] [place] [address]- 7465 Oct, [facility] [place] [facility] [address] [id number] [place] [address]- 1494 Oct, [facility] [place] [facility] [address] [facility] [id number] [place] [address]- 5341 Sep, [facility] [place] [facility] [address] [facility] [id number] [place] [address]- 0923 Aug, [facility] [place] [facility] [address] [id number] [place] [address] 2548 Aug, [facility] [address] [id number] [place] [address]- 6290 Aug, [facility] [place] [facility] [address] [id number] [place] [address]- 2546 Aug, [facility] [place] [facility] [address] [id number] [place] [address]- 8364 Jul, [facility] [place] [facility] [address] [id number] [place] [address]- 2544 Jul, [facility] [place] [facility] [address] [id number] [place] [address]- 2701 June, [facility] [place] [facility] [address] [id number] [place] [address]- 8108 June, [facility] [place] [facility] [address] [id number] [place] [address]- 8782 June, [facility] [address] [id number] [place] [address]- 5290 May, [facility] [place] [facility] [address] [id number] [place] [address]- 2561 May, [facility] [place] [facility] [address] [id number] [place] [address]- 4447 May, [facility] [place] [facility] [address] [id number] [place] [address]- 2546 18 Apr, 2012 [facility] [place] [facility] [address] [id number] [place] [address]- 2542 18 Apr, 2012 [facility] [place] [facility] [address] [id number] [place] [address]- 2546 15 Apr, 2012 [facility] [place] [facility] [address] [id number] [place] [address] 14 Apr, 2012 [facility] [place] [facility] [address] [id number] [place] [address] Apr, [facility] [address] [id number] [place] [address] Apr, [facility] [address] [id number] [place] [address] Apr, [facility] [address] [facility] [id number] [place] [address] Apr, [facility] [address] [id number] [place] [address] Apr, [facility] [address] [id number] [place] [address] Apr, [facility] [address] [facility] [id number] [place] [address] Apr, [facility] [address] [id number] [place] [address] Apr, [facility] [address] [facility] [id number] [place] [address] Apr, [facility] [address] [facility] [id number] [place] [address] Mar, [facility] [address] [facility] [id number] [place] [address]758 Mar, [facility] [address] [facility] [id number] [place] [address] Mar, [facility] [place] [facility] [address] [facility] [id number] [place] [address] Mar, [facility] [place] [facility] [address] [facility] [id number] [place] [address] Mar, [facility] [place] [facility] [address] [facility] [id number] [place] [address] Jan, [facility] [place] [facility] [address] [facility] [id number] [place] [address] Jan, [facility] [place] [facility] [address] [id number] [place] [address] 22 Jan, 2012 [facility] [place] [facility] [address] [id number] [place] [address] 22 Jan, 2012 [facility] [place] [facility] [address] [id number] [place] [address] 2546 14 Jan, 2012 [facility] [place] [facility] [address] [id number] [place] [address]- 1736 13 Jan, 2012 [facility] [place] [facility] [address] [id number] [place] [address]- [address] 13 Jan, 2012 [facility] [place] [facility] [address] [id number] [place] [address] Jan, [facility] [place] [facility] [address] [id number] [place] [address]26 06 Jan, 2012 [facility] [place] [facility] [address] [id number] [place] [address] 57[address] Jan, [facility] [place] [facility] [address] [id number] [place] [address]- [address] Jan, [facility] [place] [facility] [address] [id number] [place] [address]- [address] Jan, [facility] [place] [facility] [address] [id number] [place] [address] Jan, [facility] [place] [facility] [address] [id number] [place] [address]- 72[address] Jan, [facility] [place] [facility] [address] [id number] [place] [address]48 Dec, [facility] [place] [facility] [address] [id number] [place] [address] Dec, [facility] [place] [facility] [address] [id number] [place] [address] 37[address] Dec, [facility] [place] [facility] [address] [id number] [place] [address] 19 Jan, 2012 [facility] [place] [facility] [address] [id number] [place] [address] 15 Jan, 2012 [facility] [place] [facility] [address] [id number] [place] [address]99 15 Jan, 2012 [facility] [place] [facility] [address] [facility] [id number] [place] [address]- [address]104 14 Jan, 2012 [facility] [place] [facility] [address] [id number] [place] [address]- 8944 14 Jan, 2012 [facility] [place] [facility] [address] [id number] [place] [address]- 9[address] 14 Jan, 2012 [facility] [place] [facility] [address] [id number] [place] [address]- 6565 14 Jan, 2012 [facility] [place] [facility] [address] [facility] [id number] [place] [address]- [address] 07 Jan, 2012 [facility] [place] [facility] [address] [id number] [place] [address] 07 Jan, 2012 [facility] [place] [facility] [address] [id number] [place] [address]- 9038 16 Dec, 2011 [facility] [place] [facility] [address] [id number] [place] [address]- [address] 16 Dec, 2011 [facility] [place] [facility] [address] [id number] [address] 13 Nov, 2011 [facility] [place] [facility] [address] [id number] [place] [address]- [address]31 13 Nov, 2011 [facility] [place] [facility] [address] [id number] [place] [address]- 0886 13 Nov, 2011 [facility] [place] [facility] [address] [id number] [place] [address]- 478[address] 12 Nov, 2011 [facility] [place] [facility] [address] [facility] [id number] [place] [address]- [address]44 30 Oct, 2011 [facility] [place] [facility] [address] [id number] [place] [address] Sep, [facility] [address] [id number] [place] [address]- [address]114 Aug, [facility] [place] [facility] [address] [id number] [place] [address]- 1786 Aug, [facility] [address] [id number] [place] [address]- 60[address] Aug, [facility] [place] [facility] [address] [id number] [place] [address]- [address] Aug, [facility] [address] [id number] [place] [address]- 5526 June, [facility] [place] [facility] [address] [id number] [place] [address]- 2546 June, [facility] [address] [id number] [place] [address]783 May, [facility] [address] [id number] [place] [address] Apr, [facility] [place] [facility] [address] [id number] [place] [address]- [address]378 Apr, [facility] [address] [id number] [place] [address]- [address]396 Apr, [facility] [place] [facility] [address] [id number] [place] [address]- 2546 Apr, [facility] [place] [facility] [address] [id number] [place] [address]- 2546 Apr, [facility] [place] [facility] [address] [id number] [place] [address]- [address]596 Apr, [facility] [place] [facility] [address] [id number] [place] [address]- 2546 Mar, [facility] [place] [facility] [address] [id number] [place] [address]- 254 Mar, [facility] [place] [facility] [address] [id number] [place] [address]- 4975 Mar, [facility] [place] [facility] [address] [id number] [place] [address]- 7600 Jan, [facility] [place] [facility] [address] [id number] [place] [address]- 5[address] Jan, [facility] [place] [facility] [address] [id number] [place] [address] Jan, [facility] [place] [facility] [address] [id number] [place] [address] Jan, [facility] [place] [facility] [address] [id number] [place] [address] Jan, [facility] [place] [facility] [address] [id number] [place] [address] Jan, [facility] [place] [facility] [address] [id number] [place] [address] Jan, [facility] [place] [facility] [address] [id number] [place] [address] Dec, [facility] [place] [facility] [address] [id number] [place] [address] Dec, [facility] [place] [facility] [address] [id number] [place] [address] Nov, [facility] [place] [facility] [address] [id number] [address] Nov, [facility] [place] [facility] [address] [id number] [place] [address] Nov, [facility] [place] [facility] [address] [id number] [place] [address] Nov, [facility] [place] [facility] [address] [id number] [place] [address] Oct, [facility] [place] [facility] [address] [id number] [address] Sep, [facility] [place] [facility] [address] [id number] [place] [address] Mar, [facility] [place] [facility] [address] [id number] [place] [address] Jan, [facility] [place] [facility] [address] [id number] [place] [address] Dec, [facility] [place] [facility] [address] [id number] [place] [address] Dec, [facility] [place] [facility] [address] [id number] [place] [address] Dec, [facility] [place] [facility] [address] [id number] [place] [address] Dec, [facility] [place] [facility] [address] [facility] [id number] [place] [address] Nov, [facility] [place] [facility] [address] [id number] [place] [address] 15 Nov, 2009 [facility] [place] [facility] [address] [facility] [id number] [place] [address] 14 Nov, 2009 [facility] [place] [facility] [address] [facility] [id number] [place] [address] 14 Nov, 2009 [facility] [place] [facility] [address] [id number] [place] [address] Oct, [facility] [place] [facility] [address] [id number] [address] Jul, [facility] [place] [facility] [address] [id number] [place] [address] June, [facility] [place] [facility] [address] [id number] [place] [address] June, [facility] [place] [facility] [address] [facility] [id number] [place] [address] Apr, [facility] [place] [facility] [address] [id number] [address] Mar, [facility] [id number] [address] Jan, [facility] [id number] [address] Jan, [facility] [id number] [address] Dec, [facility] [id number] [address] Dec, [facility] [id number] [place] [address] Dec, [facility] [id number] [address] Dec, [facility] [id number] [address] Nov, [facility] [id number] [address] Jul, [facility] [id number] [address] June, IMMUNIZATIONS No Known Immunizations SOCIAL HISTORY Never Assessed REASON FOR VISIT Controlled Medication Refill PLAN OF CARE VITAL SIGNS MEDICATIONS Medication Instructions Dosage Frequency Start Date End Date Duration Status Endocet 10-325 MG Orally every 4-6 hours 1 tablet as needed Apr, Active RESULTS No Results PROCEDURES No Known procedures INSTRUCTIONS MEDICATIONS ADMINISTERED No Known Medications MEDICAL (GENERAL) HISTORY Type Description Date Medical History hypertension Medical History sleep apnea-did not tolerate CPAP Medical History oxygen dependent at [facility] Medical History colonic polyps Medical History [...] colonoscopy (Su)-polyp removed 10/2009 Surgical History EGD (Formerly [facility])-gastritis 10/2009 Surgical History gastric sleeve Surgical History [...]
--- OUTSIDE RECORDS SUMMARY | 2018-02-26 19:02 | XMS REPORT ---
Author Author GRAHAM CHRIS [facility] Address [address] [place] [address] Care Team Providers [employer] Supervisor Name Role Phone GRAHAMLIBBY HANNAY Unavailable PROBLEMS Type Condition ICD9-CM Code DDX94-HU Code Onset Dates Condition Status SNOMED Code Problem Pulmonary asbestosis J61 Active 47118671 Problem Left ventricular diastolic dysfunction I51.9 Active 205817441 Problem Chronic gout, unspecified cause, unspecified site M1A.[id number] Active 24593286 Problem Renal cyst, left N28.1 Active 58444119 Problem History of weight loss surgery Z98.84 Active 091590980 Problem Nocturnal hypoxia G47.34 Active 600291095 Problem Obstructive sleep apnea syndrome G47.33 Active 55106748 Problem History of diverticulitis Z87.19 Active 931058975588727 Problem Allergic rhinitis, unspecified allergic rhinitis type J30.9 Active 58354968 Problem Erectile dysfunction due to diseases classified elsewhere N52.1 Active 697734984 Problem Acute right-sided low back pain with right-sided sciatica M54.41 Active 925269226 Problem Psoriasis L40.9 Active 8779180 Problem Essential hypertension I10 Active 99610436 Problem Nephrolithiasis N20.0 Active 19861334 Problem Chronic prescription opiate use Z79.899 Active 154492582 Problem 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 Active 37711924 Problem Benign prostatic hyperplasia, presence of lower urinary tract symptoms unspecified, unspecified morphology N40.0 Active 638076804 Problem Moderate episode of recurrent major depressive disorder F33.1 Active 403848985 Problem Age-related osteoporosis without current pathological fracture M81.0 Active 99012020 Problem Low back pain M54.5 Active 474890032 Problem Anxiety F41.9 Active 30815804 Problem Urge incontinence N39.41 Active 370459440 Problem Hyperlipidemia, unspecified E78.5 Active 25800480 Problem Esophageal stricture K22.2 Active 48599269 Problem Cervicalgia M54.2 Active 7123881316299 Problem Primary insomnia F51.01 Active 996384097 ALLERGIES No Information ENCOUNTERS Encounter Location Date Diagnosis [facility] [id number] [address] 24619- 4091 Sep, [facility] [id number] [address] 46167- 1037 Aug, [facility] [address] 21073- 1077 Aug, [facility] [id number] [address] 14145- 1450 Aug, Anxiety F41.9 [facility] [address] 49972- 2889 Aug, [facility] [id number] [address] 37711- 8642 Jul, [facility] [id number] [address] 53000- 7117 Jul, Anxiety F41.9 [facility] [id number] [address] 48815- 4476 June, Anxiety F41.9 [facility] [id number] [address] 68949- 1770 June, [facility] [id number] [address] 58540- 0538 June, Low back pain M54.5 ; Chronic prescription opiate use Z79.899 ; Candidal intertrigo B37.2 ; Urge incontinence N39.41 ; Essential hypertension I10 ; Moderate episode of recurrent major depressive disorder F33.1 ; Age-related osteoporosis without current pathological fracture M81.0 and BMI 45.0-49.9, adult Z68.42 [facility] [id number] [address] 23900- 2245 June, [facility] [id number] [address] 16140- 4047 May, Anxiety F41.9 [facility] [address] [address] 6436 May, [facility] [id number] [address] 720525- 4776 May, [facility] [id number] [place] [address] 18345- 0816 Apr, Anxiety F41.9 [facility] [id number] [address] 32393- 5754 Apr, [facility] [id number] [address] 96087- 7413 Apr, Low back pain M54.5 [facility] [id number] [address] 09441- 1983 Apr, [facility] [id number] [address] 33206- 8293 Apr, [facility] [id number] [place] [address] 84511- 8525 Apr, Anxiety F41.9 [facility] [id number] [address] 85516- 0077 Apr, Right groin pain R10.31 [facility] [id number], [place] [address]- 2576 Mar, [facility] [id number] [place] [address] 22054- 5712 Mar, [facility] [id number], [place] [address]- 0180 Mar, Anxiety F41.9 [facility] [address], [place] [address]- 4871 Mar, Low back pain M54.5 [facility] [address], [place] [address]- 3908 Mar, Right groin pain R10.31 ; Low back pain M54.5 and BMI 45.0- 49.9, adult Z68.42 [facility] [address] 45234- 5582 Mar, [facility] [id number] [place] [address] 56247- 3248 Mar, [facility] [address] 10125- 6978 Mar, [facility] [address] 48709 -7629 Mar, [facility] [address] 65046 -2845 Mar, Cough R05 ; Pneumonia of right lower lobe due to infectious organism J18.1 and Abnormal chest x-ray R93.8 [facility] [address] 82523- 9360 Mar, [facility] [address] 89752- 9669 Mar, [facility] [id number] [address] 75951- 9388 Jan, Anxiety F41.9 [facility] [id number] [address] 75976- 9665 Jan, [facility] [address] 89810- 3606 Jan, Moderate episode of recurrent major depressive disorder F33.1 [facility] [id number] [place] [address] 43207- 6065 Jan, Subacromial bursitis of right shoulder joint M75.51 ; Shortness of breath on exertion R06.02 and BMI 45.0-49.9, adult Z68.42 [facility] [id number] [place] [address] 02734- 4285 Dec, Anxiety F41.9 [facility] [address], [place] [address]- 3896 Dec, [facility] [id number] [address] 09195- 3438 Dec, Low back pain M54.5 [facility] [id number] [address] 77484- 5624 Oct, Low back pain M54.5 [facility] [id number] [address] 14898- 1986 Sep, [facility] [id number] [address] 10995- 7858 Sep, Erectile dysfunction due to diseases classified elsewhere N52.1 [facility] [id number] [address] 28219- 6097 Sep, Erectile dysfunction due to diseases classified elsewhere N52.1 [facility] [id number] [address] 21258- 6296 Sep, [facility] [id number] [address] 77824- 0299 Sep, Erectile dysfunction due to diseases classified elsewhere N52.1 [facility] [id number] [place] [address] 81872- 4886 Sep, Low back pain M54.5 and Anxiety F41.9 [facility] [id number] [place] [address] 49477 -9951 Aug, Acute allergic rhinitis J30.9 [facility] [id number] [place] [address] 52407- 8100 Aug, [facility] [id number] [address] 49002- 5674 Aug, Anxiety F41.9 [facility] [id number] [place] [address] 02014- 3916 Jul, Low back pain M54.5 ; Chronic prescription opiate use Z79.899 and Essential hypertension I10 [facility] [id number] [place] [address] 95479- 2507 Jul, Anxiety F41.9 and Low back pain M54.5 [facility] [id number] [place] [address] 09851- 4686 June, [facility] [id number] [address] 98500- 0366 June, Anxiety F41.9 [facility] [id number] [address] 40470- 4661 May, Low back pain M54.5 [facility] [id number] [address] 62812- 2332 May, [facility] [id number] [address] 59504- 3514 May, Anxiety F41.9 [facility] [id number] [address] 87012- 6486 Apr, [facility] [id number] [address] 93260- 3819 Apr, Low back pain M54.5 [facility] [id number] [address] 27111- 8279 Apr, Moderate episode of recurrent major depressive disorder F33.1 [facility] [id number] [address] 33224- 6268 Apr, Anxiety F41.9 [facility] [id number] [address] 82525- 2545 Apr, Low back pain M54.5 [facility] [id number] [place] [address] 53830- 1916 15 Apr, 2016 Elevated alkaline phosphatase level R74.8 [facility] [id number] [place] [address] 64792- 9338 10 Apr, 2016 Alkaline phosphatase elevation R74.8 [facility] [id number] [place] [address] 99072- 0583 06 Apr, 2016 Anxiety F41.9 [facility] [id number] [place] [address] 16315- 0235 03 Apr, 2016 Low back pain M54.5 [facility] [id number] [place] [address] 68249- 5204 03 Apr, 2016 Essential hypertension I10 ; History of weight loss surgery Z98.84 ; History of herpes genitalis Z86.19 ; Encounter for hepatitis C screening test for low risk patient Z11.59 ; Hyperlipidemia, unspecified E78.5 ; Benign prostatic hyperplasia, presence of lower urinary tract symptoms unspecified, unspecified morphology N40.0 and Exposure to STD Z20.2 [facility] [id number] [place] [address] 15723- 5568 02 Apr, 2016 [place] [address] 02851- 7788 Mar, [facility] [id number] [place] [address] 44451- 3882 Mar, [facility] [id number] [place] [address] 42502- 9019 Mar, [facility] [id number] [place] [address] 03471- 2699 Mar, Acute right-sided low back pain with right-sided sciatica M54.41 [facility] [id number] [place] [address] 10102- 7270 Mar, Low back pain M54.5 [facility] [id number] [place] [address] 90956 -4921 13 Mar, 2016 Muscle strain of chest wall, initial encounter S29.011A ; Muscle strain of right thigh, initial encounter S76.911A and Acute non- recurrent maxillary sinusitis J01.00 [place] [address] [place] [address]- 2822 Mar, Benign prostatic hyperplasia, presence of lower urinary tract symptoms unspecified, unspecified morphology N40.0 [facility] [id number] [place] [address] 34248- 9239 Jan, Low back pain M54.5 [facility] [address] 36305- 4450 Jan, Low back pain M54.5 ; Essential hypertension I10 ; Hyperlipidemia, unspecified E78.5 ; Anxiety F41.9 ; Moderate episode of recurrent major depressive disorder F33.1 ; Primary insomnia F51.01 ; Exposure to STD Z20.2 ; Encounter for hepatitis C screening test for low risk patient Z11.59 and History of herpes genitalis Z86.19 [place] [facility] [address] 42824- 8610 17 Jan, 2016 [place] [address] 91995- 6516 20 Dec, 2015 [place] [address] 46542- 4310 14 Dec, 2015 Anxiety F41.9 ; Cervicalgia M54.2 ; Moderate episode of recurrent major depressive disorder F33.1 and Encounter for immunization Z23 [facility] [id number] [place] [address] 85754- 6517 Oct, [facility] [id number] [place] [address] 14378- 5967 Oct, [facility] [id number] [place] [address] 37795- 6076 16 Nov, 2015 [place] [facility] [address] 10314- 9538 Oct, [facility] [id number] [place] [address] 30989- 0614 Sep, [facility] [address] 26857- 9813 Aug, Low back pain M54.5 ; Anxiety F41.9 ; Primary insomnia F51.01 and Chronic prescription opiate use Z79.899 [facility] [id number] [place] [address] 51380- 9691 Jul, [facility] [id number] [place] [address] 55641- 2812 Jul, [facility] [id number] [address] 37490- 6392 Jul, [facility] [id number] [place] [address] 24460- 4207 Jul, [facility] [id number] [address] 81155- 5941 Jul, [facility] [id number] [place] [address] 53403- 8769 June, [facility] [id number] [address] 02387- 1589 June, [facility] [id number] [place] [address] 74560- 6016 June, [facility] [id number] [address] 88906- 9952 June, [facility] [address], [place] [address]- 8437 May, Preoperative cardiovascular examination Z01.810 [facility] [address], [place] [address]- 0511 May, [facility] [address], [place] [address]- 0810 Apr, [facility] [id number] [address] 60266- 1001 Apr, Osteoarthritis of right knee M17.9 [facility] [address], [place] [address]- 9829 Apr, [facility] [id number] [place] [address] 70304- 5004 16 May, 2015 [facility] [id number] [address] 80747- 0283 Apr, [facility] [id number] [place] [address] 63261- 3106 09 May, 2015 [facility] [address] 20088- 3794 08 May, 2015 History of excessive cerumen Z78.9 ; Obstructive sleep apnea syndrome G47.33 ; History of diverticulitis Z87.19 and Nephrolithiasis N20.0 [facility] [id number] [address] 44199- 8581 29 Apr, 2015 [facility] [id number] [address] 73792 -2330 Apr, Abdominal pain R10.9 [facility] [id number] [address] 55671- 1952 10 Apr, 2015 [facility] [id number] [address] 94710- 7925 04 Apr, 2015 Osteoarthritis of right knee M17.9 [facility] [id number] [address] 43404- 8120 Mar, [facility] [id number] [address] 75717- 4127 Mar, [facility] [id number] [place] [address] 81672- 6463 14 Mar, 2015 [facility] [id number] [address] 44584- 4647 13 Mar, 2015 [facility] [id number] [place] [address] 12788 -4261 13 Mar, 2015 Pyelonephritis N12 ; Left-sided thoracic back pain M54.6 ; Hematuria, unspecified R31.9 and Kidney stone N20.0 [facility] [id number] [place] [address] 70578- 5305 12 Mar, 2015 History of weight loss surgery Z98.84 [facility] [id number] [place] [address] 97683 2544 07 Mar, 2015 History of weight loss surgery Z98.84 and Hyperlipidemia, unspecified E78.5 [facility] [address] 85380- 9023 Mar, Low back pain M54.5 ; Chronic prescription opiate use Z79.899 ; Hyperlipidemia, unspecified E78.5 ; Spasm of back muscles M62.830 and History of weight loss surgery Z98.84 [facility] [id number] [address] 95264- 0926 Jan, [facility] [address] 66529- 7140 Jan, [facility] [address] 94858- 4618 Jan, [facility] [address] 58937- 6811 Dec, [facility] [address] 94561- 4957 Dec, [facility] [id number] [place] [address] 16285- 3552 Dec, [facility] [address] 81406- 2242 Nov, [facility] [address] 14131- 7377 Nov, Obstructive sleep apnea syndrome G47.33 and Pharyngoesophageal dysphagia R13.14 [facility] [id number] [place] [address] 56896- 0172 Nov, [facility] [address] 85082- 2323 Nov, [facility] [address], [place] [address]- 4066 Nov, [facility] [id number] [id number] Oct, Dental examination V72.2 [facility] [id number] [place] [address] 05620- 1357 Oct, [facility] [id number] [place] [address] 69393- 5124 Oct, [facility] [id number] [place] [address] 01574- 1661 Oct, [facility] [id number] [place] [address] 94887- 1104 Oct, [facility] [id number] [place] [address] 92620- 0317 Oct, BPH (benign prostatic hyperplasia) 600.00 and Urinary frequency 788.41 [facility] [id number] [place] [address] 94203- 5758 Oct, [facility] [id number] [place] [address] 94007- 5078 Oct, [facility] [address], [place] [address]- 0796 Oct, [facility] [id number] [place] [address] 88828- 2592 Sep, Cerumen impaction 380.4 ; Cerumen debris on tympanic membrane 380.4 ; Psoriasis 696.1 and MICKY (secretory otitis media) 381.4 [facility] [address] [id number] Sep, Dental examination V72.2 [facility] [address], [place] [address]- 6738 Sep, Fatigue 780.79 ; Irritable bowel syndrome 564.1 ; Overweight 278.02 ; Poor sleep V69.4 ; Shaking spells 781.0 and Broken tooth 873.63 [facility] [address] 7034 Sep, [facility] [id number] 1599 Sep, [facility] [id number] [place] [address] 15953- 0393 Aug, [facility] [id number] [place] [address] 33225- 9786 Jul, [facility] [id number] [place] [address] 12680- 1918 Jul, [facility] [id number] [place] [address] 62627- 4487 Jul, [facility] [id number] [place] [address] 45612- 3806 Jul, [facility] [address], [place] [address]- 9825 June, Arthritis of knee, right 716.96 [facility] [id number], [place] [address]- 8963 June, [facility] [id number], [place] [address]- 5035 June, Elevated blood pressure reading without diagnosis of hypertension 796.2 [facility] [id number], [place] [address] June, [facility] [id number] [address] June, [facility] [id number] [id number] June, [facility] [id number] [address] June, [facility] [place] [facility] [address] [id number] [place] [address] 14 May, 2014 [facility] [place] [facility] [address] [id number] [place] [address] May, [facility] [place] [facility] [address] [id number] [place] [address] Apr, [facility] [place] [facility] [address] [id number] [place] [address] Apr, [facility] [place] [facility] [address] [id number] [place] [address] Apr, [facility] [place] [facility] [address] [id number] [place] [address] Apr, [facility] [place] [facility] [address] [id number] [place] [address] Apr, [facility] [place] [facility] [address] [id number] [place] [address] Apr, [facility] [place] [facility] [address] [id number] [place] [address] Apr, [facility] [place] [facility] [address] [id number] [place] [address] Apr, [facility] [place] [facility] [address] [id number] [place] [address] Apr, [facility] [place] [facility] [address] [id number] [place] [address] Apr, [facility] [place] [facility] [address] [id number] [place] [address] Apr, [facility] [place] [facility] [address] [id number] [place] [address]- [address] Apr, [facility] [place] [facility] [address] [id number] [place] [address] Apr, [facility] [place] [facility] [address] [id number] [place] [address]- [address] 24 Apr, 2014 [facility] [place] [facility] [address] [id number] [place] [address] Apr, 2014 [facility] [place] [facility] [address] [facility] [id number] [place] [address] 23 Apr, 2014 [facility] [place] [facility] [address] [facility] [id number] [place] [address] 20 Apr, 2014 [facility] [place] [facility] [address] [id number] [place] [address] 20 Apr, 2014 [facility] [place] [facility] [address] [facility] [id number] [place] [address] 18 Apr, 2014 [facility] [place] [facility] [address] [id number] [place] [address] 18 Apr, 2014 [facility] [place] [facility] [id number] [place] [address] 13 Apr, 2014 [facility] [place] [facility] [address] [facility] [id number] [place] [address] 13 Apr, 2014 [facility] [place] [facility] [address] [id number] [place] [address] 13 Apr, 2014 [facility] [place] [facility] [address] [id number] [address] 13 Apr, 2014 [facility] [place] [facility] [address] [facility] [id number], [place] [address] 3606 12 Apr, 2014 [facility] [place] [facility] [address] [facility] [id number] [place] [address]- 8085 12 Apr, 2014 [facility] [place] [facility] [address] [facility] [id number] [place] [address]- 9045 06 Apr, 2014 [facility] [place] [facility] [address] [facility] [id number], [place] [address] 8701 06 Apr, 2014 [facility] [place] [facility] [id number], [place] [address] 8[address] Apr, [facility] [place] [facility] [address] [id number] [place] [address]- 1495 Apr, [facility] [place] [facility] [address] [id number] [place] [address]- 9451 Apr, [facility] [place] [facility] [address] [id number] [place] [address]- 4988 Apr, [facility] [place] [facility] [address] [id number] [place] [address]- 3439 Apr, [facility] [place] [facility] [address] [id number] [place] [address]- 9721 Mar, [facility] [place] [facility] [address] [id number] [place] [address]- 1797 Mar, [facility] [place] [facility] [address] [id number] [place] [address]- 2451 Mar, [facility] [place] [facility] [address] [id number] [place] [address]- 7175 Mar, [facility] [place] [facility] [address] [id number] [place] [address]- 8873 Mar, [facility] [place] [facility] [address] [facility] [id number] [place] [address]- 1023 Mar, [facility] [place] [facility] [address] [id number] [place] [address]- 8370 Mar, [facility] [place] [facility] [address] [id number], [place] [address] 8128 Mar, [facility] [place] [facility] [address] [id number], [place] [address] 9750 Mar, [facility] [place] [facility] [address] [id number], [place] [address]- 5872 Mar, [facility] [place] [facility] [address] [id number], [place] [address]- 7148 Jan, [facility] [place] [facility] [address] [id number] [place] [address]- 8304 Jan, [facility] [place] [facility] [address] [id number] [place] [address]- 4114 Jan, [facility] [place] [facility] [address] [id number] [place] [address] Jan, [facility] [place] [facility] [address] [id number] [place] [address]- 4667 Jan, [facility] [place] [facility] [address] [id number] [place] [address]- 9000 Jan, [facility] [place] [facility] [address] [id number] [place] [address]- 2740 Jan, [facility] [place] [facility] [address] [id number] [place] [address]- 5041 Jan, [facility] [place] [facility] [address] [id number] [place] [address]- 6437 Jan, [facility] [place] [facility] [address] [id number] [place] [address]- 5938 Jan, [facility] [place] [facility] [address] [id number] [place] [address]- 4212 Jan, [facility] [place] [facility] [address] [id number] [place] [address]- 8673 Jan, [facility] [place] [facility] [address] [id number] [place] [address]- 1932 Dec, [facility] [place] [facility] [address] [id number] [place] [address]- 1396 Dec, [facility] [place] [facility] [address] [id number] [place] [address]- 9485 Dec, [facility] [place] [facility] [address] [id number] [place]13 Dec, [facility] [place] [facility] [address] [id number] [place] [address]- 0681 Dec, [facility] [place] [facility] [address] [id number] [place] [address]- 4945 14 Dec, 2013 [facility] [place] [facility] [address] [id number] [place] [address]- 9921 Dec, [facility] [place] [facility] [address] [id number] [place] [address]507 Dec, [facility] [place] [facility] [address] [id number] [place] [address]- 3571 Dec, [facility] [place] [facility] [address] [id number] [place] [address]- 6549 Dec, [facility] [place] [facility] [address] [id number] [place] [address]- 5149 Nov, [facility] [place] [facility] [address] [id number] [place] [address]- 8985 Nov, [facility] [place] [facility] [address] [id number], [place] [address]- 1628 Nov, [facility] [place] [facility] [address] [id number], [place] [address]- 6365 Nov, [facility] [place] [facility] [address] [id number], [place] [address] 2001 Nov, [facility] [place] [facility] [address] [id number], [place] [address]- 8603 Nov, [facility] [place] [facility] [address] [id number], [place] [address]- 6854 Nov, [facility] [place] [facility] [address] [id number], [place] [address]- 4931 Nov, [facility] [place] [facility] [address] [id number], [place] [address]- 2117 Nov, [facility] [place] [facility] [address] [id number], [place] [address]- 6841 Nov, [facility] [place] [facility] [address] [id number] [place] [address]- 4690 17 Nov, 2013 [facility] [place] [facility] [address] [id number] [place] [address]- 8473 17 Nov, 2013 [facility] [place] [facility] [address] [id number] [place] [address]- 3732 14 Nov, 2013 [facility] [place] [facility] [address] [id number] [place] [address]- 4733 14 Nov, 2013 [facility] [place] [facility] [address] [id number] [place] [address]- 2000 10 Nov, 2013 [facility] [place] [facility] [address] [id number] [place] [address]- 1334 10 Nov, 2013 [facility] [place] [facility] [address] [id number] [place] [address]- 9037 08 Nov, 2013 [facility] [place] [facility] [address] [id number] [place] [address]- 0144 08 Nov, 2013 [facility] [place] [facility] [address] [id number] [place] [address]- 2643 Nov, [facility] [place] [facility] [address] [id number] [place] [address]- 9656 Nov, [facility] [place] [facility] [address] [id number] [place] [address]- 6555 26 Oct, 2013 [facility] [place] [facility] [address] [id number] [place] [address]- 0423 26 Oct, 2013 [facility] [place] [facility] [address] [id number] [place] [address]- 2996 19 Oct, 2013 [facility] [place] [facility] [address] [id number] [place] [address]- 2541 19 Oct, 2013 [facility] [place] [facility] [address] [id number] [place] [address]- 0806 12 Oct, 2013 [facility] [place] [facility] [address] [id number] [place] [address]- 1422 Oct, [facility] [place] [facility] [address] [id number] [place] [address]- 2161 Oct, [facility] [place] [facility] [address] [id number] [place] [address]- 5295 Oct, [facility] [place] [facility] [address] [id number] [place] [address]- 9847 Oct, [facility] [place] [facility] [address] [id number] [place] [address]- 4921 Oct, [facility] [place] [facility] [address] [id number] [place] [address]- 0240 Sep, [facility] [place] [facility] [address] [id number] [place] [address]- 5315 Sep, [facility] [place] [facility] [address] [id number] [place] [address]- 1663 Sep, [facility] [place] [facility] [address] [id number] [place] [address]- 4839 Sep, [facility] [place] [facility] [address] [id number] [place] [address]- 4204 Sep, [facility] [place] [facility] [address] [id number] [place] [address]- 8340 Sep, [facility] [place] [facility] [address] [id number] [place] [address]- 9642 Sep, [facility] [place] [facility] [address] [id number] [place] [address]- 4483 Sep, [facility] [place] [facility] [address] [id number] [place] [address]- 2450 Sep, [facility] [place] [facility] [address] [id number] [place] [address]- 2789 Sep, [facility] [place] [facility] [address] [id number] [place] [address]- 0180 Sep, [facility] [place] [facility] [address] [id number] [place] [address]- 1742 Sep, [facility] [place] [facility] [address] [id number] [place] [address]- 7529 Sep, [facility] [place] [facility] [address] [id number] [place] [address]- 4378 Sep, [facility] [place] [facility] [address] [id number] [place] [address]- 0573 Sep, [facility] [place] [facility] [address] [id number] [place] [address]- 5927 Sep, [facility] [place] [facility] [address] [id number] [place] [address]- 2118 Sep, [facility] [place] [facility] [address] [id number] [place] [address]- 2143 Sep, [facility] [place] [facility] [address] [id number] [place] [address]- 6365 Sep, [facility] [place] [facility] [address] [id number] [place] [address]- 4126 Sep, [facility] [place] [facility] [address] [id number] [place] [address]- 4890 Sep, [facility] [place] [facility] [address] [id number] [place] [address]- 2779 Sep, [facility] [place] [facility] [address] [id number] [place] [address]- 2809 Sep, [facility] [place] [facility] [address] [id number] [place] [address]- 4507 Sep, [facility] [place] [facility] [address] [id number] [place] [address]- 4691 Sep, [facility] [place] [facility] [address] [id number] [place] [address]- 7869 Aug, [facility] [place] [facility] [address] [id number] [place] [address]- 0989 Aug, [facility] [place] [facility] [address] [id number] [place] [address]- 3134 Aug, 2013 [facility] [place] [facility] [address] [id number] [place] [address]- 3625 Aug, [facility] [place] [facility] [address] [id number] [place] [address]- 1293 Aug, 2013 [facility] [place] [facility] [address] [id number] [place] [address]- 3762 Aug, 2013 [facility] [place] [facility] [address] [id number] [place] [address]- 4472 Aug, [facility] [place] [facility] [address] [id number] [place] [address]- 3894 Aug, [facility] [place] [facility] [address] [id number] [place] [address]- 8109 Aug, [facility] [place] [facility] [address] [id number] [place] [address]- 0404 Aug, [facility] [place] [facility] [address] [id number] [place] [address]- 2762 Aug, [facility] [place] [facility] [address] [id number] [place] [address]- 2727 Aug, [facility] [place] [facility] [address] [id number] [place] [address]- 4226 Aug, [facility] [place] [facility] [address] [id number] [place] [address]- 3409 Jul, [facility] [place] [facility] [address] [id number] [place] [address]- 2909 Jul, [facility] [place] [facility] [address] [id number] [place] [address]- 8127 Jul, [facility] [place] [facility] [address] [id number] [place] [address]- 7557 Jul, [facility] [place] [facility] [address] [id number] [place] [address]- 3348 Jul, [facility] [place] [facility] [address] [id number] [place] [address]- 8467 Jul, [facility] [place] [facility] [address] [id number] [place] [address]- 4205 Jul, [facility] [place] [facility] [address] [id number] [place] [address]- 8895 June, [facility] [place] [facility] [address] [id number] [place] [address]- 8450 June, [facility] [place] [facility] [address] [id number] [place] [address]- 9191 June, [facility] [place] [facility] [address] [id number] [place] [address]- 3917 June, [facility] [place] [facility] [address] [id number] [place] [address]- 4432 May, [facility] [place] [facility] [address] [id number] [place] [address]- 4664 May, [facility] [place] [facility] [address] [id number] [place] [address]- 8988 May, [facility] [place] [facility] [address] [id number] [place] [address]- 0102 May, [facility] [place] [facility] [address] [id number] [place] [address]- 8100 May, [facility] [place] [facility] [address] [id number] [place] [address]- 6803 May, [facility] [place] [facility] [address] [id number] [place] [address]- 6350 May, [facility] [place] [facility] [address] [id number] [place] [address]- 3661 May, [facility] [place] [facility] [address] [id number] [place] 1114 May, [facility] [place] [facility] [address] [id number] [place] [address]- 6208 May, [facility] [place] [facility] [address] [id number] [place] [address]- 5008 Apr, [facility] [place] [facility] [address] [id number] [place] [address]- 8749 Apr, [facility] [place] [facility] [address] [id number] [place] [address]- 2527 Apr, [facility] [place] [facility] [address] [id number] [place] [address]- 5630 Apr, [facility] [place] [facility] [address] [id number] [place] [address]- 2933 Apr, [facility] [place] [facility] [address] [id number] [place] [address]- 1560 Apr, [facility] [place] [facility] [address] [id number] [place] [address]- 9118 Apr, [facility] [place] [facility] [address] [id number] [place] [address]- 8421 Apr, [facility] [place] [facility] [address] [id number] [place] [address]- 8728 Apr, [facility] [place] [facility] [address] [id number] [place] [address]- 4695 Apr, [facility] [place] [facility] [address] [id number] [place] [address]- 4704 Mar, [facility] [place] [facility] [address] [id number] [place] [address]- 2618 Mar, [facility] [place] [facility] [address] [id number] [place] [address]- 9155 Mar, [facility] [place] [facility] [address] [id number] [place] [address]- 9846 Mar, [facility] [place] [facility] [address] [id number] [place] [address]- 2509 Mar, [facility] [address] [id number] [place] [address]- 9300 Mar, [facility] [place] [facility] [address] [id number] [place] [address]- 1074 Jan, [facility] [place] [facility] [address] [id number] [place] Jan, [facility] [place] [facility] [address] [id number] [place] [address]- 0345 Jan, [facility] [place] [facility] [address] [id number] [place] [address]- 1327 Jan, [facility] [place] [facility] [address] [id number] [place] [address]- 0102 Jan, [facility] [place] [facility] [address] [id number] [place] [address]- 8397 Jan, [facility] [place] [facility] [address] [id number], [place] [address]- 6838 Jan, [facility] [place] [facility] [address] [id number] [place] [address]- 5400 Jan, [facility] [place] [facility] [address] [id number], [place] [address]- 9224 Jan, [facility] [place] [facility] [address] [id number], [place] [address]- 8825 Dec, [facility] [place] [facility] [address] [id number], [place] [address]- 2158 Dec, [facility] [place] [facility] [address] [id number], [place] [address]- 0064 Dec, [facility] [place] [facility] [address] [id number], [place] [address]- 4701 Dec, [facility] [place] [facility] [address] [id number], [place] [address]- 9035 Dec, [facility] [place] [facility] [address] [id number], [place] [address]- 2182 Dec, [facility] [place] [facility] [address] [id number] [place] [address]- 3646 Dec, [facility] [place] [facility] [address] [id number] [place] [address]- 0533 Dec, [facility] [place] [facility] [address] [facility] [id number] [place] [address]- 4313 Dec, [facility] [place] [facility] [address] [id number] [place] [address]- 4907 Dec, [facility] [place] [facility] [address] [facility] [id number] [place] [address]- 7184 Dec, [facility] [place] [facility] [address] [id number] [place] [address]- 3915 Nov, [facility] [place] [facility] [address] [facility] [id number] [place] [address]- 2467 Nov, [facility] [place] [facility] [address] [id number] [place] [address]- 4711 Nov, [facility] [place] [facility] [address] [facility] [id number] [place] [address]- 8477 Nov, [facility] [place] [facility] [address] [facility] [id number] [place] [address]- 0280 Nov, [facility] [place] [facility] [address] [id number], [place] [address]- 6247 Oct, [facility] [place] [facility] [address] [id number], [place] [address]- 1323 Oct, [facility] [place] [facility] [address] [id number] [place] [address]- 0170 Sep, [facility] [place] [facility] [address] [facility] [id number] [place] [address]- 7181 Aug, [facility] [place] [facility] [address] [facility] [id number] [place] [address]- 0012 Aug, [facility] [place] [facility] [address] [id number] [place] [address]- 0393 Aug, [facility] [address] [id number] [place] [address]- 2831 Aug, [facility] [place] [facility] [address] [id number] [place] [address]- 6129 Jul, [facility] [place] [facility] [address] [id number] [place] [address]- 9765 Jul, [facility] [place] [facility] [address] [id number] [place] [address]- 4936 June, [facility] [place] [facility] [address] [id number] [place] [address]- 1305 June, [facility] [place] [facility] [address] [id number] [place] [address]- 7827 June, [facility] [place] [facility] [address] [id number] [place] [address]- 5734 May, [facility] [place] [facility] [address] [id number] [place] [address]- 1606 May, [facility] [place] [facility] [address] [id number] [place] [address]- 7563 May, [facility] [place] [facility] [address] [id number] [place] [address]- 5074 Apr, [facility] [place] [facility] [address] [id number] [place] [address]- 3141 18 Apr, 2012 [facility] [place] [facility] [address] [id number] [place] [address]- 9804 15 Apr, 2012 [facility] [place] [facility] [address] [id number] [place] [address]- 1786 14 Apr, 2012 [facility] [place] [facility] [address] [id number] [place] [address]- 9265 12 Apr, 2012 [facility] [place] [facility] [address] [id number] [place] [address] Apr, [facility] [address] [id number] [place] [address] Apr, [facility] [address] [id number] [place] [address] Apr, [facility] [address] [facility] [id number] [place] [address] Apr, [facility] [address] [id number] [place] [address] Apr, [facility] [address] [id number] [place] [address] Apr, [facility] [address] [facility] [id number] [place] [address] Apr, [facility] [address] [id number] [place] [address] Apr, [facility] [address] [facility] [id number] [place] [address] Mar, [facility] [address] [facility] [id number] [place] [address] Mar, [facility] [address] [facility] [id number] [place] [address] 268[address] Mar, [facility] [address] [facility] [id number] [place] [address] Mar, [facility] [place] [facility] [address] [facility] [id number] [place] [address] 69[address] Mar, [facility] [place] [facility] [address] [id number] [place] [address] Jan, [facility] [place] [facility] [address] [facility] [id number] [place] [address] Jan, [facility] [place] [facility] [address] [facility] [id number] [place] [address] Jan, [facility] [place] [facility] [address] [id number] [place] [address]- [address]226 22 Jan, 2012 [facility] [place] [facility] [address] [id number] [place] [address]- 5966 14 Jan, 2012 [facility] [place] [facility] [address] [id number] [place] [address] 2546 13 Jan, 2012 [facility] [place] [facility] [address] [id number] [place] [address] 2916 13 Jan, 2012 [facility] [place] [facility] [address] [id number] [place] [address] 8156 11 Jan, 2012 [facility] [place] [facility] [address] [id number] [place] [address]- [address]116 06 Jan, 2012 [facility] [place] [facility] [address] [id number] [place] [address]- [address] 06 Jan, 2012 [facility] [place] [facility] [address] [id number] [place] [address]- 17[address] Jan, [facility] [place] [facility] [address] [id number] [place] [address] Jan, [facility] [place] [facility] [address] [id number] [place] [address] Jan, [facility] [place] [facility] [address] [id number] [place] [address] Jan, [facility] [place] [facility] [address] [id number] [place] [address]- 4886 Dec, [facility] [place] [facility] [address] [id number] [place] [address]797 Dec, [facility] [place] [facility] [address] [id number] [place] [address] Dec, [facility] [place] [facility] [address] [id number] [place] [address] 2826 19 Jan, 2012 [facility] [place] [facility] [address] [id number] [place] [address] 15 Jan, 2012 [facility] [place] [facility] [address] [id number] [place] [address] 15 Jan, 2012 [facility] [place] [facility] [address] [id number] [place] [address] 5492 14 Jan, 2012 [facility] [place] [facility] [address] [id number] [place] [address]- [address]12 14 Jan, 2012 [facility] [place] [facility] [address] [id number] [place] [address]- 4380 14 Jan, 2012 [facility] [place] [facility] [address] [id number] [place] [address] 8[address] 14 Jan, 2012 [facility] [place] [facility] [address] [id number] [place] [address]- 4027 07 Jan, 2012 [facility] [place] [facility] [address] [id number] [place] [address]- 295[address] 07 Jan, 2012 [facility] [place] [facility] [address] [id number] [place] [address]- [address]47 16 Dec, 2011 [facility] [place] [facility] [address] [id number] [place] [address]- 2574 16 Dec, 2011 [facility] [place] [facility] [address] [id number] [place] [address]- 2392 13 Nov, 2011 [facility] [place] [facility] [address] [id number], [place] [address] 13 Nov, 2011 [facility] [place] [facility] [address] [id number], [place] [address] 13 Nov, 2011 [facility] [place] [facility] [address] [id number] [place] [address]- 3898 12 Nov, 2011 [facility] [place] [facility] [address] [id number], [place] [address]36 30 Oct, 2011 [facility] [place] [facility] [address] [id number], [place] [address] 07 Oct, 2011 [facility] [place] [facility] [address] [id number] [place] [address] 1318 Aug, [facility] [address] [id number] [place] [address]- 0716 Aug, [facility] [place] [facility] [address] [id number] [place] [address]- 7566 Aug, [facility] [address] [id number] [place] [address]- 6167 Aug, [facility] [place] [facility] [address] [id number] [place] [address] 9325 June, [facility] [address] [id number] [place] [address] 8461 June, [facility] [address] [id number] [place] [address]- 1786 May, [facility] [address] [id number] [place] [address]- [address]476 Apr, [facility] [address] [id number] [place] [address]- 7976 Apr, [facility] [place] [facility] [address] [id number] [place] [address]- 5645 Apr, [facility] [address] [id number] [place] [address]- 9988 Apr, [facility] [place] [facility] [address] [id number] [place] [address]- 8393 Apr, [facility] [place] [facility] [address] [id number] [place] [address]- 2547 Apr, [facility] [place] [facility] [address] [id number] [place] [address]- 7396 Mar, [facility] [place] [facility] [address] [id number] [place] [address]- 2546 Mar, [facility] [place] [facility] [address] [id number] [place] [address]- 3470 Mar, [facility] [place] [facility] [address] [id number] [place] [address]- 6692 Jan, [facility] [place] [facility] [address] [id number] [place] [address] 1990 Jan, [facility] [place] [facility] [address] [id number] [place] [address]- 2419 Jan, [facility] [place] [facility] [address] [id number] [place] [address]- 5285 Jan, [facility] [place] [facility] [address] [id number] [place] [address] Jan, [facility] [place] [facility] [address] [id number] [place] [address]- 6864 Jan, [facility] [place] [facility] [address] [id number] [place] [address] Jan, [facility] [place] [facility] [address] [id number] [place] [address]- 3710 Dec, [facility] [place] [facility] [address] [id number] [place] [address]- 2874 Dec, [facility] [place] [facility] [address] [id number] [place] [address] Nov, [facility] [place] [facility] [address] [id number] [place] [address]- 1356 Nov, [facility] [place] [facility] [address] [id number], [place] [address] Nov, [facility] [place] [facility] [address] [id number] [place] [address] Nov, [facility] [place] [facility] [address] [id number] [place] [address] Oct, [facility] [place] [facility] [address] [id number] [place] [address] Sep, [facility] [place] [facility] [address] [id number], [place] [address] Mar, [facility] [place] [facility] [address] [id number] [place] [address] Jan, [facility] [place] [facility] [address] [id number] [place] [address] Dec, [facility] [place] [facility] [address] [id number] [place] [address] Dec, [facility] [place] [facility] [address] [id number] [place] [address] Dec, [facility] [place] [facility] [address] [id number] [place] [address] Dec, [facility] [place] [facility] [address] [id number] [place] [address] 26 Nov, 2009 [facility] [place] [facility] [address] [facility] [id number] [place] [address] 15 Nov, 2009 [facility] [place] [facility] [address] [id number] [place] [address] 14 Nov, 2009 [facility] [place] [facility] [address] [facility] [id number], [place] [address] 14 Nov, 2009 [facility] [place] [facility] [address] [facility] [id number] [place] [address] 13 Oct, 2009 [facility] [place] [facility] [address] [id number], [place] [address] Jul, [facility] [place] [facility] [address] [id number], [place] [address] June, [facility] [place] [facility] [address] [id number] [place] [address] June, [facility] [place] [facility] [address] [facility] [id number], [place] [address] 17 Apr, 2009 [facility] [place] [facility] [address] [facility] [id number] [address] Mar, [facility] [place] [facility] [address] [id number], [place] [address] Jan, [facility] [id number], [place] [address] Jan, [facility] [id number], [place] [address] Dec, [facility] [id number], [place] [address] Dec, [facility] [id number], [place] [address] Dec, [facility] [id number] [place] [id number] Dec, [facility] [id number], [place] [address] Nov, [facility] [id number], [place] [address] Jul, [facility] [address] [id number], [place] [address] June, IMMUNIZATIONS No Known Immunizations SOCIAL HISTORY [...] tolerate CPAP Medical History oxygen dependent at [facility] Medical History colonic polyps Medical [...]
--- OUTSIDE RECORDS SUMMARY | 2018-02-26 19:03 | XMS REPORT ---
Author Author [facility] Address [address] [place] [address] Care Team Providers Care Lead Tinner Name Role Phone GRAHAMLIBBY HANNAY Unavailable PROBLEMS Type Condition ICD9-CM Code TLN89-OX Code Onset Dates Condition Status SNOMED Code Problem Pulmonary asbestosis J61 Active 49919757 Problem Left ventricular diastolic dysfunction I51.9 Active 579136011 Problem Chronic gout, unspecified cause, unspecified site M1A.9XX0 Active 67248527 Problem Renal cyst, left N28.1 Active 70405495 Problem History of weight loss surgery Z98.84 Active 508806797 Problem Nocturnal hypoxia G47.34 Active 493881015 Problem Obstructive sleep apnea syndrome G47.33 Active 06229648 Problem History of diverticulitis Z87.19 Active [id number] Problem Allergic rhinitis, unspecified allergic rhinitis type J30.9 Active 97159476 Problem Erectile dysfunction due to diseases classified elsewhere N52.1 Active 352494487 Problem Acute right-sided low back pain with right-sided sciatica M54.41 Active 715686477 Problem Psoriasis L40.9 Active 0154416 Problem Essential hypertension I10 Active 74793642 Problem Nephrolithiasis N20.0 Active 63444373 Problem Chronic prescription opiate use Z79.899 Active 625791851 Problem 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 Active 92188664 Problem Benign prostatic hyperplasia, presence of lower urinary tract symptoms unspecified, unspecified morphology N40.0 Active 575775358 Problem Moderate episode of recurrent major depressive disorder F33.1 Active 140860162 Problem Age-related osteoporosis without current pathological fracture M81.0 Active 75570993 Problem Low back pain M54.5 Active 748518682 Problem Anxiety F41.9 Active 42241136 Problem Urge incontinence N39.41 Active 448399296 Problem Hyperlipidemia, unspecified E78.5 Active 20121364 Problem Esophageal stricture K22.2 Active 35286730 Problem Cervicalgia M54.2 Active 4432654887258 Problem Primary insomnia F51.01 Active 193873574 ALLERGIES No Information ENCOUNTERS Encounter Location Date Diagnosis [facility] [id number] [place] [address] 34739- 9672 Sep, [facility] [id number] [place] [address] 93011- 4231 Aug, [facility] [address] 54665- 9187 Aug, Anxiety F41.9 [facility] [id number] [place] [address] 65832- 4062 Aug, [facility] [id number] [place] [address] 26287- 0621 Jul, [facility] [address] 48833- 1513 Jul, Anxiety F41.9 [facility] [id number] [place] [address] 05707- 2589 June, Anxiety F41.9 [facility] [id number] [place] [address] 11361- 5670 June, [facility] [id number] [place] [address] 86103- 9702 June, Low back pain M54.5 ; Chronic prescription opiate use Z79.899 ; Candidal intertrigo B37.2 ; Urge incontinence N39.41 ; Essential hypertension I10 ; Moderate episode of recurrent major depressive disorder F33.1 ; Age-related osteoporosis without current pathological fracture M81.0 and BMI 45.0-49.9, adult Z68.42 [facility] [id number] [place] [address] 29511- 0687 June, [facility] [id number] [place] [address] 82908- 0842 May, Anxiety F41.9 [facility] [id number] [place] [address] 97249- 5593 May, [facility] [address] [address]- 0188 May, [facility] [id number] [place] [address] 165815- 9222 Apr, Anxiety F41.9 [facility] [id number] [place] [address] 35787- 2146 Apr, [facility] [id number] [place] [address] 40460- 2623 Apr, Low back pain M54.5 [facility] [id number] [place] [address] 38149- 9701 Apr, [facility] [id number] [place] [address] 44849- 9248 Apr, [facility] [id number] [place] [address] 11392- 6895 Apr, Anxiety F41.9 [facility] [id number] [place] [address] 42110- 8544 Apr, Right groin pain R10.31 [facility] [id number] [place] [address] 51923- 5227 Mar, [facility] [id number] [place] [address] 66570- 6274 Mar, [facility] [id number] [place] [address] 54420- 6778 Mar, Anxiety F41.9 [facility] [id number] [place] [address] 73050- 2296 Mar, Low back pain M54.5 [facility] [id number] [place] [address] 74891- 5869 Mar, Right groin pain R10.31 ; Low back pain M54.5 and BMI 45.0- 49.9, adult Z68.42 [facility] [id number] [place] [address] 87947- 3838 Mar, [facility] [id number] [place] [address] 93073- 5116 Mar, [facility] [id number] [place] [address] 52783- 9425 Mar, [facility] [address] 27015 -6537 Mar, [facility] [id number] [place] [address] 38464 -7853 Mar, Cough R05 ; Pneumonia of right lower lobe due to infectious organism J18.1 and Abnormal chest x-ray R93.8 [facility] [id number] [place] [address] 45513- 9928 Mar, [facility] [id number] [place] [address] 04582- 5663 Mar, [facility] [id number] [place] [address] 18823- 5179 Jan, Anxiety F41.9 [facility] [id number] [place] [address] 72255- 1695 Jan, [facility] [id number] [place] [address] 77559- 9587 Jan, Moderate episode of recurrent major depressive disorder F33.1 [facility] [id number] [place] [address] 54538- 2840 Jan, Subacromial bursitis of right shoulder joint M75.51 ; Shortness of breath on exertion R06.02 and BMI 45.0-49.9, adult Z68.42 [facility] [id number] [place] [address] 26575- 2619 Dec, Anxiety F41.9 [facility] [id number] [place] [address] 63570- 1474 Dec, [facility] [id number] [place] [address] 22094- 3191 Dec, Low back pain M54.5 [facility] [id number] [place] [address] 55581- 6030 Oct, Low back pain M54.5 [facility] [id number] [place] [address] 12456- 0202 Sep, [facility] [id number] [place] [address] 87700- 9620 Sep, Erectile dysfunction due to diseases classified elsewhere N52.1 [facility] [address] 96478- 0893 Sep, Erectile dysfunction due to diseases classified elsewhere N52.1 [facility] [id number] [place] [address] 90798- 0728 Sep, [facility] [id number] [place] [address] 28930- 0958 Sep, Erectile dysfunction due to diseases classified elsewhere N52.1 [facility] [id number] [place] [address] 73970- 2010 Sep, Low back pain M54.5 and Anxiety F41.9 [facility] [id number] [place] [address] 70887 -1756 Aug, Acute allergic rhinitis J30.9 [facility] [address] [place] [address] 37409- 2210 Aug, [facility] [id number] [place] [address] 80750- 2394 Aug, Anxiety F41.9 [facility] [id number] [place] [address] 94618- 4438 Jul, Low back pain M54.5 ; Chronic prescription opiate use Z79.899 and Essential hypertension I10 [facility] [id number] [place] [address] 14234- 8548 Jul, Anxiety F41.9 and Low back pain M54.5 [facility] [id number] [place] [address] 72825- 5907 June, [facility] [id number] [place] [address] 22697- 2406 June, Anxiety F41.9 [facility] [id number] [place] [address] 01275- 5010 May, Low back pain M54.5 [facility] [id number] [place] [address] 69300- 4021 May, [facility] [id number] [place] [address] 91919- 0147 May, Anxiety F41.9 [facility] [id number] [place] [address] 66715- 6703 Apr, [facility] [id number] [place] [address] 70553- 6142 Apr, Low back pain M54.5 [facility] [id number] [place] [address] 09092- 8411 Apr, Moderate episode of recurrent major depressive disorder F33.1 [facility] [id number] [place] [address] 55241- 4865 Apr, Anxiety F41.9 [facility] [id number] [place] [address] 52634- 8900 Apr, Low back pain M54.5 [facility] [id number] [place] [address] 62600- 6976 15 Apr, 2016 Elevated alkaline phosphatase level R74.8 [facility] [id number] [place] [address] 22261- 7291 10 Apr, 2016 Alkaline phosphatase elevation R74.8 [facility] [id number] [place] [address] 07893- 0829 06 Apr, 2016 Anxiety F41.9 [facility] [id number] [place] [address] 97198- 1099 03 Apr, 2016 Low back pain M54.5 [facility] [id number] [place] [address] 81284- 8300 03 Apr, 2016 History of weight loss surgery Z98.84 ; Encounter for hepatitis C screening test for low risk patient Z11.59 ; History of herpes genitalis Z86.19 ; Essential hypertension I10 ; Hyperlipidemia, unspecified E78.5 ; Exposure to STD Z20.2 and Benign prostatic hyperplasia, presence of lower urinary tract symptoms unspecified, unspecified morphology N40.0 [facility] [id number] [place] [address] 24490- 3097 02 Apr, 2016 [facility] [id number] [place] [address] 47321- 2451 Mar, [facility] [id number] [place] [address] 54578- 1891 Mar, [facility] [id number] [place] [address] 74692- 8424 Mar, [facility] [id number] [place] [address] 99469- 0956 Mar, Acute right-sided low back pain with right-sided sciatica M54.41 [facility] [id number] [place] [address] 40651- 0544 Mar, Low back pain M54.5 [facility] [address] [place] [address] 43220 -2199 13 Mar, 2016 Muscle strain of chest wall, initial encounter S29.011A ; Muscle strain of right thigh, initial encounter S76.911A and Acute non- recurrent maxillary sinusitis J01.00 [facility] [address] [place] [address] 06305- 9454 Mar, Benign prostatic hyperplasia, presence of lower urinary tract symptoms unspecified, unspecified morphology N40.0 [facility] [id number] [place] [address] 38395- 8217 Jan, Low back pain M54.5 [facility] [id number] [place] [address] 25179- 2086 Jan, Low back pain M54.5 ; Essential hypertension I10 ; Hyperlipidemia, unspecified E78.5 ; Anxiety F41.9 ; Moderate episode of recurrent major depressive disorder F33.1 ; Primary insomnia F51.01 ; Exposure to STD Z20.2 ; Encounter for hepatitis C screening test for low risk patient Z11.59 and History of herpes genitalis Z86.19 [facility] [address] 40830- 5691 17 Jan, 2016 [facility] [address] 18818- 4597 Nov, [facility] [address] 84034- 2129 14 Dec, 2015 Anxiety F41.9 ; Cervicalgia M54.2 ; Moderate episode of recurrent major depressive disorder F33.1 and Encounter for immunization Z23 [facility] [id number] [place] [address] 25356- 3037 Oct, [facility] [address] 49473- 3548 Oct, [facility] [address] 92281- 1346 16 Nov, 2015 [facility] [id number] [place] [address] 08307- 6143 Oct, [facility] [address] 83468- 3916 Sep, [facility] [id number] [place] [address] 26397- 2001 Aug, Low back pain M54.5 ; Anxiety F41.9 ; Primary insomnia F51.01 and Chronic prescription opiate use Z79.899 [facility] [address] [facility] [id number] [address]- 6708 Jul, [facility] [address], [place] [address]- 4922 Jul, [facility] [id number] [address]- 7743 Jul, [facility] [id number] [place] [address] 09061- 8141 Jul, [facility] [address] [facility] [id number] [address]- 1709 Jul, [facility] [address] [place] [address] 51189- 5699 June, [facility] [address] [address]- 2509 June, [facility] [id number] [place] [address] 32806- 9289 June, [facility] [address] [address]- 0470 June, [facility] [address] [address]- 6308 May, Preoperative cardiovascular examination Z01.810 [facility] [address] [address]- 7044 May, [facility] [address], [place] [address]- 9010 Apr, [facility] [address], [place] [address]- 3269 Apr, Osteoarthritis of right knee M17.9 [facility] [address], [place] [address]- 7838 30 May, 2015 [facility] [address] [address]- 2278 16 May, 2015 [facility] [address] [place] [address] 28340- 9999 Apr, [facility] [id number] [place] [address] 17962- 8047 Apr, [facility] [id number] [place] [address] 02595- 2716 Apr, History of excessive cerumen Z78.9 ; Obstructive sleep apnea syndrome G47.33 ; History of diverticulitis Z87.19 and Nephrolithiasis N20.0 [facility] [id number] [place] [address] 35591- 0923 Apr, [facility] [id number] [place] [address] 27555 -1749 Apr, Abdominal pain R10.9 [facility] [id number] [place] [address] 71236- 2324 Apr, [facility] [id number] [place] [address] 59977- 8819 Apr, Osteoarthritis of right knee M17.9 [facility] [id number] [place] [address] 72780- 5625 Mar, [facility] [id number] [place] [address] 49935- 6598 Mar, [facility] [id number] [place] [address] 77532- 6506 14 Mar, 2015 [facility] [id number] [place] [address] 18637- 0674 Mar, [facility] [id number] [place] [address] 65927 -9037 Mar, Pyelonephritis N12 ; Left-sided thoracic back pain M54.6 ; Hematuria, unspecified R31.9 and Kidney stone N20.0 [facility] [id number] [place] [address] 74824- 6530 Mar, History of weight loss surgery Z98.84 [facility] [id number] [place] [address] 67747- 2349 Mar, 2016 History of weight loss surgery Z98.84 and Hyperlipidemia, unspecified E78.5 [facility] [id number] [place] [address] 77084- 9508 Mar, 2016 Low back pain M54.5 ; Chronic prescription opiate use Z79.899 ; Hyperlipidemia, unspecified E78.5 ; Spasm of back muscles M62.830 and History of weight loss surgery Z98.84 [facility] [id number] [place] [address] 41002- 8427 Jan, [facility] [id number] [place] [address] 75947- 2535 Jan, [facility] [address] 24644- 6789 Jan, [facility] [id number] [place] [address] 29909- 4104 Dec, [facility] [id number] [place] [address] 81863- 9404 Dec, [facility] [id number] [place] [address] 82367- 6970 Dec, [facility] [id number] [place] [address] 48660- 6029 Nov, [facility] [id number] [place] [address] 85503- 7619 Nov, Obstructive sleep apnea syndrome G47.33 and Pharyngoesophageal dysphagia R13.14 [facility] [id number] [place] [address] 61920- 3791 Nov, [facility] [id number] [place] [address] 66182- 3023 Nov, [facility] [address] 09049- 3898 Nov, [facility] [id number] [id number] Oct, Dental examination V72.2 [facility] [id number] [place] [address] 62932- 5237 Oct, [facility] [id number] [place] [address] 97149- 0351 Oct, [facility] [id number] [place] [address] 15042- 8493 Oct, [facility] [id number] [place] [address] 46588- 7754 Oct, [facility] [id number] [place] [address] 86302- 6695 Oct, BPH (benign prostatic hyperplasia) 600.00 and Urinary frequency 788.41 [facility] [id number] [place] [address] 76195- 0890 Oct, [facility] [id number] [place] [address] 93377- 5449 Oct, [facility] [id number] [place] [address] 90143- 6604 Oct, [facility] [id number] [place] [address] 30904- 5348 Sep, Cerumen impaction 380.4 ; Cerumen debris on tympanic membrane 380.4 ; Psoriasis 696.1 and MICKY (secretory otitis media) 381.4 [facility] [id number] [id number] Sep, Dental examination V72.2 [facility] [id number] [place] [address] 607667- 4613 Sep, Fatigue 780.79 ; Irritable bowel syndrome 564.1 ; Overweight 278.02 ; Poor sleep V69.4 ; Shaking spells 781.0 and Broken tooth 873.63 [facility] [address] [facility] [id number] [place] [address]- 7347 Sep, [facility] [address] [facility] [id number] [place] 1905 Sep, [facility] [address] [facility] [id number] [place] [address]- 5383 Aug, [facility] [id number] [place] [address]- 1107 Jul, [facility] [id number] [place] [address]- 4103 Jul, [facility] [address] [place] [address] Jul, [facility] [id number] [place] [address] Jul, [facility] [id number] [address] June, Arthritis of knee, right 716.96 [facility] [id number] [address] June, [facility] [id number] [address] June, Elevated blood pressure reading without diagnosis of hypertension 796.2 [facility] [id number] [address] June, [facility] [address] [id number] [address] June, [facility] [address] [id number] [address] June, [facility] [address] [id number] [place] [address] June, [facility] [address] [id number] [address] May, [facility] [place] [facility] [address] [id number] [place] [address] 13 May, 2014 [facility] [place] [facility] [address] [id number] [place] [address] 30 Apr, 2014 [facility] [place] [facility] [address] [id number] [place] [address] 30 Apr, 2014 [facility] [place] [facility] [address] [id number] [place] [address] Apr, [facility] [place] [facility] [address] [id number] [place] [address] Apr, [facility] [place] [facility] [address] [id number] [place] [address] Apr, [facility] [place] [facility] [address] [id number] [place] [address] Apr, [facility] [place] [facility] [address] [id number] [place] [address] Apr, [facility] [place] [facility] [address] [id number] [place] [address] Apr, [facility] [place] [facility] [address] [id number] [place] [address] Apr, [facility] [place] [facility] [address] [id number] [place] [address] Apr, [facility] [place] [facility] [address] [id number] [place] [address] 49[address] Apr, [facility] [place] [facility] [address] [id number] [place] [address] Apr, [facility] [place] [facility] [address] [id number] [place] [address] 1346 Apr, [facility] [place] [facility] [address] [id number] [place] [address] Apr, [facility] [place] [facility] [address] [id number] [place] [address] 1681 23 Apr, 2014 [facility] [place] [facility] [address] [facility] [id number] [place] [address]- 2315 23 Apr, 2014 [facility] [place] [facility] [address] [facility] [id number] [place] [address]- 7480 20 Apr, 2014 [facility] [place] [facility] [address] [facility] [id number] [place] [address] 7192 20 Apr, 2014 [facility] [place] [facility] [address] [facility] [id number] [place] [address] 0136 18 Apr, 2014 [facility] [place] [facility] [address] [facility] [id number] [place] [address]- 1883 18 Apr, 2014 [facility] [place] [facility] [address] [id number] [place] [address] 4928 13 Apr, 2014 [facility] [place] [facility] [address] [id number] [place] [address]- 0668 13 Apr, 2014 [facility] [place] [facility] [address] [facility] [id number] [place] [address]- 2233 13 Apr, 2014 [facility] [place] [facility] [address] [id number] [place] [address] 0658 13 Apr, 2014 [facility] [place] [facility] [address] [id number] [place] [address]- 7097 12 Apr, 2014 [facility] [place] [facility] [address] [facility] [id number], [place] [address] 12 Apr, 2014 [facility] [place] [facility] [address] [facility] [id number] [place] [address]- 2361 06 Apr, 2014 [facility] [place] [facility] [address] [facility] [id number] [place] [address]- 4330 06 Apr, 2014 [facility] [place] [facility] [address] [facility] [id number] [place] [address]- 2514 05 Apr, 2014 [facility] [place] [facility] [id number], [place] [address] Apr, [facility] [place] [facility] [address] [id number] [place] [address]- 1040 Apr, [facility] [place] [facility] [address] [id number] [place] [address]- 1752 Apr, [facility] [place] [facility] [address] [id number] [place] [address]- 3376 Apr, [facility] [place] [facility] [address] [id number] [place] [address]- 6706 Mar, [facility] [place] [facility] [address] [id number] [place] [address]- 4413 Mar, [facility] [place] [facility] [address] [id number] [place] [address]- 7973 Mar, [facility] [place] [facility] [address] [id number] [place] [address]- 6923 Mar, [facility] [place] [facility] [address] [id number] [place] [address]- 9892 Mar, [facility] [place] [facility] [address] [id number] [place] [address]- 4860 Mar, [facility] [place] [facility] [address] [facility] [id number] [place] [address]- 6590 Mar, [facility] [place] [facility] [address] [id number] [place] [address]- 9991 Mar, [facility] [place] [facility] [address] [id number], [place] [address] 2381 Mar, [facility] [place] [facility] [address] [id number] [place] [address]- 1523 Mar, [facility] [place] [facility] [address] [id number] [place] [address]- 0122 Jan, [facility] [place] [facility] [address] [id number] [place] [address]- 0094 Jan, [facility] [place] [facility] [address] [id number] [place] [address]- 0741 Jan, [facility] [place] [facility] [address] [id number] [place] [address]- 7798 Jan, [facility] [place] [facility] [address] [id number] [place] [address]- 2458 Jan, [facility] [place] [facility] [address] [id number] [place] [address]- 1348 Jan, [facility] [place] [facility] [address] [id number] [place] [address]- 8383 Jan, [facility] [place] [facility] [address] [id number] [place] [address]- 8918 Jan, [facility] [place] [facility] [address] [id number] [place] [address]- 1367 Jan, [facility] [place] [facility] [address] [id number] [place] [address]- 4247 Jan, [facility] [place] [facility] [address] [id number] [place] [address]- 8488 Jan, [facility] [place] [facility] [address] [id number] [place] [address]- 1084 Jan, [facility] [place] [facility] [address] [id number] [place] [address]- 9732 Dec, [facility] [place] [facility] [address] [id number] [place] [address]- 9456 Dec, [facility] [place] [facility] [address] [id number] [place] [address]- 1150 Dec, [facility] [place] [facility] [address] [id number] [place] [address]- 7568 Dec, [facility] [place] [facility] [address] [id number] [place] [address]- 6491 14 Dec, 2013 [facility] [place] [facility] [address] [id number] [place] [address]- 4120 Dec, [facility] [place] [facility] [address] [id number] [place] [address]- 3376 Dec, [facility] [place] [facility] [address] [id number] [place] [address] Dec, [facility] [place] [facility] [address] [id number] [place] [address] Dec, [facility] [place] [facility] [address] [id number] [place] [address]- 0538 Dec, [facility] [place] [facility] [address] [id number] [place] [address]- 6938 Nov, [facility] [place] [facility] [address] [id number] [place] [address]- 4530 Nov, [facility] [place] [facility] [address] [id number] [place] [address]- 5458 Nov, [facility] [place] [facility] [address] [id number], [place] [address]- 2430 Nov, [facility] [place] [facility] [address] [id number], [place] [address]- 5990 Nov, [facility] [place] [facility] [address] [id number], [place] [address]- 9713 Nov, [facility] [place] [facility] [address] [id number], [place] [address]- 7965 Nov, [facility] [place] [facility] [address] [id number], [place] [address]- 6212 Nov, [facility] [place] [facility] [address] [id number], [place] [address]- 6473 Nov, [facility] [place] [facility] [address] [id number], [place] [address]- [address] Nov, [facility] [place] [facility] [address] [id number], [place] [address]- 8615 Nov, [facility] [place] [facility] [address] [id number] [place] [address]- 7836 17 Nov, 2013 [facility] [place] [facility] [address] [id number] [place] [address]- 6785 14 Nov, 2013 [facility] [place] [facility] [address] [id number] [place] [address]- 1772 14 Nov, 2013 [facility] [place] [facility] [address] [id number] [place] [address]- 9659 10 Nov, 2013 [facility] [place] [facility] [address] [id number] [place] [address]- 5107 10 Nov, 2013 [facility] [place] [facility] [address] [id number] [place] [address]- 6421 08 Nov, 2013 [facility] [place] [facility] [address] [id number] [place] [address]- 0030 08 Nov, 2013 [facility] [place] [facility] [address] [id number] [place] [address]- 2774 Nov, [facility] [place] [facility] [address] [id number] [place] [address]- 9532 Nov, [facility] [place] [facility] [address] [id number] [place] [address]- 8079 26 Oct, 2013 [facility] [place] [facility] [address] [id number] [place] [address]- 2337 26 Oct, 2013 [facility] [place] [facility] [address] [id number] [place] [address]- 2545 19 Oct, 2013 [facility] [place] [facility] [address] [id number] [place] [address]- 2543 19 Oct, 2013 [facility] [place] [facility] [address] [id number] [place] [address]- 254 12 Oct, 2013 [facility] [place] [facility] [address] [id number] [place] [address]- 2548 12 Oct, 2013 [facility] [place] [facility] [address] [id number] [place] [address]- 0265 Oct, [facility] [place] [facility] [address] [id number] [place] [address]- 1614 Oct, [facility] [place] [facility] [address] [id number] [place] [address]- 1409 Oct, [facility] [place] [facility] [address] [id number] [place] [address]- 0593 Oct, [facility] [place] [facility] [address] [id number] [place] [address]- 4777 Sep, [facility] [place] [facility] [address] [id number] [place] [address]- 9930 Sep, [facility] [place] [facility] [address] [id number] [place] [address]- 6878 Sep, [facility] [place] [facility] [address] [id number] [place] [address]- 5224 Sep, [facility] [place] [facility] [address] [id number] [place] [address]- 1525 Sep, [facility] [place] [facility] [address] [id number] [place] [address]- 8854 Sep, [facility] [place] [facility] [address] [id number] [place] [address]- 9028 Sep, [facility] [place] [facility] [address] [id number] [place] [address]- 4752 Sep, [facility] [place] [facility] [address] [id number] [place] [address]- 6191 Sep, [facility] [place] [facility] [address] [id number] [place] [address]- 6173 Sep, [facility] [place] [facility] [address] [id number] [place] [address]- 5455 Sep, [facility] [place] [facility] [address] [id number] [place] [address]- 3473 Sep, [facility] [place] [facility] [address] [id number] [place] [address]- 7749 Sep, [facility] [place] [facility] [address] [id number] [place] [address]- 8771 Sep, [facility] [place] [facility] [address] [id number] [place] [address]- 8408 Sep, [facility] [place] [facility] [address] [id number] [place] [address]- 6434 Sep, [facility] [place] [facility] [address] [id number] [place] [address]- 1200 Sep, [facility] [place] [facility] [address] [id number] [place] [address]- 8987 Sep, [facility] [place] [facility] [address] [id number] [place] [address]- 9770 Sep, [facility] [place] [facility] [address] [id number] [place] [address]- 4608 Sep, [facility] [place] [facility] [address] [id number] [place] [address]- 0572 Sep, [facility] [place] [facility] [address] [id number] [place] [address]- 8875 Sep, [facility] [place] [facility] [address] [id number] [place] [address]- 3079 Sep, [facility] [place] [facility] [address] [id number] [place] [address]- 7122 Sep, [facility] [place] [facility] [address] [id number] [place] [address]- 8757 Sep, [facility] [place] [facility] [address] [id number] [place] [address]- 7639 Aug, [facility] [place] [facility] [address] [id number] [place] [address]- 0656 Aug, [facility] [place] [facility] [address] [id number] [place] [address]- 0305 Aug, [facility] [place] [facility] [address] [id number] [place] [address]- 0022 Aug, 2013 [facility] [place] [facility] [address] [id number] [place] [address]- 3374 Aug, [facility] [place] [facility] [address] [id number] [place] [address]- 3182 Aug, 2013 [facility] [place] [facility] [address] [id number] [place] [address]- 1730 Aug, 2013 [facility] [place] [facility] [address] [id number] [place] [address]- 2639 Aug, 2013 [facility] [place] [facility] [address] [id number] [place] [address]- 2757 Aug, [facility] [place] [facility] [address] [id number] [place] [address]- 7512 Aug, [facility] [place] [facility] [address] [id number] [place] [address]- 3941 Aug, [facility] [place] [facility] [address] [id number] [place] [address]- 0977 Aug, [facility] [place] [facility] [address] [id number] [place] [address]- 8217 Aug, [facility] [place] [facility] [address] [id number] [place] [address]- 6158 Jul, [facility] [place] [facility] [address] [id number] [place] [address]- 4413 Jul, [facility] [place] [facility] [address] [id number] [place] [address]- 5705 Jul, [facility] [place] [facility] [address] [id number] [place] [address]- 1457 Jul, [facility] [place] [facility] [address] [id number] [place] [address]- 7786 Jul, [facility] [place] [facility] [address] [id number] [place] [address]- 1464 Jul, [facility] [place] [facility] [address] [id number] [place] [address]- 0168 Jul, [facility] [place] [facility] [address] [id number] [place] [address]- 7990 June, [facility] [place] [facility] [address] [id number] [place] [address]- 4289 June, [facility] [place] [facility] [address] [id number] [place] [address]- 6048 June, [facility] [place] [facility] [address] [id number] [place] [address]- 0857 June, [facility] [place] [facility] [address] [id number] [place] [address]- 8582 May, [facility] [place] [facility] [address] [id number] [place] [address]- 5486 May, [facility] [place] [facility] [address] [id number] [place] [address]- 9407 May, [facility] [place] [facility] [address] [id number] [place] [address]- 3984 May, [facility] [place] [facility] [address] [id number] [place] [address]- 2912 May, [facility] [place] [facility] [address] [id number] [place] [address]- 9594 May, [facility] [place] [facility] [address] [id number] [place] [address]- 8082 May, [facility] [place] [facility] [address] [id number] [place] [address]- 6358 May, [facility] [place] [facility] [address] [id number] [place] [address]- 0551 May, [facility] [place] [facility] [address] [id number] [place] 6097 May, [facility] [place] [facility] [address] [id number] [place] [address]- 7335 Apr, [facility] [place] [facility] [address] [id number] [place] [address]- 9133 Apr, [facility] [place] [facility] [address] [id number] [place] 8126 Apr, [facility] [place] [facility] [address] [id number] [place] [address]- 8701 Apr, [facility] [place] [facility] [address] [id number] [place] [address]- 5318 Apr, [facility] [place] [facility] [address] [id number] [place] [address]- 9981 Apr, [facility] [place] [facility] [address] [id number] [place] [address]- 1239 Apr, [facility] [place] [facility] [address] [id number] [place] [address]- 8940 Apr, [facility] [place] [facility] [address] [id number] [place] [address]- 4290 Apr, [facility] [place] [facility] [address] [id number] [place] [address]- 9463 Apr, [facility] [place] [facility] [address] [id number] [place] [address]- 8768 Mar, [facility] [place] [facility] [address] [id number] [place] [address]- 5116 Mar, [facility] [place] [facility] [address] [id number] [place] [address]- 1454 Mar, [facility] [place] [facility] [address] [id number] [place] [address]- 8240 Mar, [facility] [place] [facility] [address] [id number] [place] [address]- 3803 Mar, [facility] [place] [facility] [address] [id number] [place] [address]- 3465 Mar, [facility] [address] [id number] [place] [address]- 8292 Jan, [facility] [place] [facility] [address] [id number] [place] [address]- 4827 Jan, [facility] [place] [facility] [address] [id number] [place] [address]- 6542 Jan, [facility] [place] [facility] [address] [id number] [place] [address]- 0205 Jan, [facility] [place] [facility] [address] [id number] [place] [address]- 0921 Jan, [facility] [place] [facility] [address] [id number] [place] [address]- 3128 Jan, [facility] [place] [facility] [address] [id number] [place] [address]- 7934 Jan, [facility] [place] [facility] [address] [id number], [place] [address]- 0167 Jan, [facility] [place] [facility] [address] [id number] [place] [address]- 1663 Jan, [facility] [place] [facility] [address] [id number], [place] [address]- 2635 Dec, [facility] [place] [facility] [address] [id number], [place] [address]- 7240 Dec, [facility] [place] [facility] [address] [id number], [place] [address]- 0890 Dec, [facility] [place] [facility] [address] [id number], [place] [address]- 0364 Dec, [facility] [place] [facility] [address] [id number], [place] [address]- 9029 Dec, [facility] [place] [facility] [address] [id number], [place] [address]- 3397 Dec, [facility] [place] [facility] [address] [id number], [place] [address]- 2932 Dec, [facility] [place] [facility] [address] [id number] [place] [address]- 9161 Dec, [facility] [place] [facility] [address] [id number] [place] [address]- 2024 Dec, [facility] [place] [facility] [address] [facility] [id number] [place] [address]- 3054 Dec, [facility] [place] [facility] [address] [id number] [place] [address] Dec, [facility] [place] [facility] [address] [id number] [place] [address] Nov, [facility] [place] [facility] [address] [id number] [place] [address] Nov, [facility] [place] [facility] [address] [id number] [place] [address] Nov, [facility] [place] [facility] [address] [id number] [place] [address] Nov, [facility] [place] [facility] [address] [facility] [id number] [place] [address] Nov, [facility] [place] [facility] [address] [facility] [id number] [place] [address] Oct, [facility] [place] [facility] [address] [id number] [place] [address] Oct, [facility] [place] [facility] [address] [id number], [place] [address] Sep, [facility] [place] [facility] [address] [id number] [place] [address] Aug, [facility] [place] [facility] [address] [facility] [id number] [place] [address] Aug, [facility] [place] [facility] [address] [facility] [id number] [place] [address] Aug, [facility] [place] [facility] [address] [id number] [place] [address] Aug, [facility] [address] [id number] [place] [address] Jul, [facility] [place] [facility] [address] [id number] [place] [address] Jul, [facility] [place] [facility] [address] [id number] [place] [address] June, [facility] [place] [facility] [address] [id number] [place] [address] June, [facility] [place] [facility] [address] [id number] [place] [address] June, [facility] [place] [facility] [address] [id number] [place] [address] May, [facility] [place] [facility] [address] [id number] [place] [address] May, [facility] [address] [id number] [place] [address] May, [facility] [place] [facility] [address] [id number] [place] [address] Apr, [facility] [place] [facility] [address] [id number] [place] [address] 18 Apr, 2012 [facility] [place] [facility] [address] [id number] [place] [address]- [address] 15 Apr, 2012 [facility] [place] [facility] [address] [id number] [place] [address]- [address]266 14 Apr, 2012 [facility] [place] [facility] [address] [id number] [place] [address] Apr, [facility] [place] [facility] [address] [id number] [place] [address] Apr, [facility] [place] [facility] [address] [id number] [place] [address] Apr, [facility] [address] [id number] [place] [address] Apr, [facility] [address] [id number] [place] [address] Apr, [facility] [address] [facility] [id number] [place] [address] 2546 Apr, [facility] [address] [id number] [place] [address] 2546 Apr, [facility] [address] [id number] [place] [address] Apr, [facility] [address] [facility] [id number] [place] [address] Apr, [facility] [address] [facility] [id number] [place] [address] Mar, [facility] [address] [id number] [place] [address]- [address] Mar, [facility] [address] [facility] [id number] [place] [address]- [address]383 Mar, [facility] [address] [facility] [id number] [place] [address] Mar, [facility] [address] [facility] [id number] [place] [address] Mar, [facility] [address] [id number], [place] [address] Jan, [facility] [place] [facility] [address] [id number] [place] [address]- [address] Jan, [facility] [place] [facility] [address] [facility] [id number] [place] [address]- 1131 Jan, [facility] [place] [facility] [address] [facility] [id number] [place] [address] Jan, [facility] [place] [facility] [address] [id number] [place] [address]- [address] 14 Jan, 2012 [facility] [place] [facility] [address] [id number] [place] [address]- 9276 13 Jan, 2012 [facility] [place] [facility] [address] [id number] [place] [address] 2546 13 Jan, 2012 [facility] [place] [facility] [address] [id number] [place] [address]- 3876 11 Jan, 2012 [facility] [place] [facility] [address] [id number] [place] [address]- 7146 06 Jan, 2012 [facility] [place] [facility] [address] [id number] [place] [address]- 2906 06 Jan, 2012 [facility] [place] [facility] [address] [id number] [place] [address] 04 Jan, 2012 [facility] [place] [facility] [address] [id number] [place] [address]- 1718 04 Jan, 2012 [facility] [place] [facility] [address] [id number] [place] [address]- [address] 04 Jan, 2012 [facility] [place] [facility] [address] [id number] [place] [address] 2992 04 Jan, 2012 [facility] [place] [facility] [address] [id number] [place] [address]- 7729 Dec, [facility] [place] [facility] [address] [id number] [place] [address]- [address]576 26 Jan, 2012 [facility] [place] [facility] [address] [id number] [place] [address] 2546 Dec, [facility] [place] [facility] [address] [id number] [place] [address]- 1046 19 Jan, 2012 [facility] [place] [facility] [address] [id number] [place] [address] 2546 15 Jan, 2012 [facility] [place] [facility] [address] [id number] [place] [address] 3043 15 Jan, 2012 [facility] [place] [facility] [address] [id number] [place] [address]- 1442 14 Jan, 2012 [facility] [place] [facility] [address] [id number] [place] [address]- 5515 14 Jan, 2012 [facility] [place] [facility] [address] [id number] [place] [address]- 6936 14 Jan, 2012 [facility] [place] [facility] [address] [id number] [place] [address]- 8208 14 Jan, 2012 [facility] [place] [facility] [address] [id number] [place] [address]- 1892 07 Jan, 2012 [facility] [place] [facility] [address] [id number] [place] [address]- 5823 07 Jan, 2012 [facility] [place] [facility] [address] [facility] [id number] [place] [address]- 8930 16 Dec, 2011 [facility] [place] [facility] [address] [id number] [place] [address]- 5988 16 Dec, 2011 [facility] [place] [facility] [address] [id number] [place] [address]- 1519 13 Nov, 2011 [facility] [place] [facility] [address] [id number] [place] [address]- 9336 13 Nov, 2011 [facility] [place] [facility] [address] [id number], [place] [address]- [address] 13 Nov, 2011 [facility] [place] [facility] [address] [id number], [place] [address]- [address] 12 Nov, 2011 [facility] [place] [facility] [address] [id number] [place] [address]- 8209 Sep, [facility] [place] [facility] [address] [id number], [place] [address]- [address] Sep, [facility] [place] [facility] [address] [facility] [id number] [place] [address]- 1081 Aug, [facility] [place] [facility] [address] [id number] [place] [address] Aug, [facility] [address] [id number] [place] [address] Aug, [facility] [place] [facility] [address] [id number] [place] [address] Aug, [facility] [address] [id number] [place] [address] June, [facility] [place] [facility] [address] [id number] [place] [address] June, [facility] [address] [id number] [place] [address] May, [facility] [address] [id number] [place] [address] Apr, [facility] [address] [id number] [place] [address] Apr, [facility] [address] [id number] [place] [address] Apr, [facility] [address] [id number] [place] [address] Apr, [facility] [address] [id number] [place] [address] Apr, [facility] [address] [id number] [place] [address] Apr, [facility] [address] [id number] [place] [address] Mar, [facility] [place] [facility] [address] [id number] [place] [address] Mar, [facility] [place] [facility] [address] [id number] [place] [address] Mar, [facility] [place] [facility] [address] [id number] [place] [address] Jan, [facility] [place] [facility] [address] [id number] [place] [address] Jan, [facility] [place] [facility] [address] [id number] [place] [address] Jan, [facility] [place] [facility] [address] [id number] [place] [address] Jan, [facility] [place] [facility] [address] [id number] [place] [address] Jan, [facility] [place] [facility] [address] [id number] [place] [address] Jan, [facility] [place] [facility] [address] [id number] [place] [address] Jan, [facility] [place] [facility] [address] [id number] [place] [address] Dec, [facility] [place] [facility] [address] [id number] [place] [address] Dec, [facility] [place] [facility] [address] [id number] [place] [address] Nov, [facility] [place] [facility] [address] [id number] [place] [address] Nov, [facility] [place] [facility] [address] [id number] [place] [address] Nov, [facility] [place] [facility] [address] [id number], [place] [address] Nov, [facility] [place] [facility] [address] [id number] [place] [address] Oct, [facility] [place] [facility] [address] [id number] [place] [address] Sep, [facility] [place] [facility] [address] [id number] [place] [address] Mar, [facility] [place] [facility] [address] [id number], [place] [address] 22 Jan, 2010 [facility] [address] [id number] [place] [address] Dec, [facility] [place] [facility] [address] [id number], [place] [address] Dec, [facility] [place] [facility] [address] [facility] [id number] [place] [address] Dec, [facility] [place] [facility] [address] [id number] [place] [address] Dec, [facility] [place] [facility] [address] [id number] [place] [address] 26 Nov, 2009 [facility] [place] [facility] [address] [id number] [place] [address] 15 Nov, 2009 [facility] [address] [facility] [id number], [place] [address] 14 Nov, 2009 [facility] [place] [facility] [address] [facility] [id number] [place] [address] 14 Nov, 2009 [facility] [place] [facility] [address] [facility] [id number], [place] [address] Oct, [facility] [place] [facility] [address] [facility] [id number], [place] [address] Jul, [facility] [place] [facility] [address] [id number], [place] [address] June, [facility] [place] [facility] [address] [facility] [id number], [place] [address] June, [facility] [place] [facility] [address] [id number], [place] [address] Apr, [facility] [place] [facility] [address] [id number], [place] [address] Mar, [facility] [place] [facility] [address] [facility] [id number] [place] [address] 24 Jan, 2009 [facility] [place] [facility] [address] [id number], [place] [address] Jan, [facility] [id number], [place] [address] Dec, [facility] [id number], [place] [address] Dec, [facility] [id number] [address] [address] Dec, [facility] [id number], [place] [address] Dec, [facility] [id number] [place] [address] Nov, [facility] [id number], [place] [address] Jul, [facility] [id number], [place] [address] June, IMMUNIZATIONS No Known Immunizations SOCIAL HISTORY Never Assessed REASON FOR VISIT Medication not Covered PLAN OF CARE VITAL SIGNS MEDICATIONS Medication Instructions Dosage Frequency Start Date End Date Duration Status Myrbetriq 25 MG Orally Once a day 1 tablet 24h May, 30 day(s) Active RESULTS No Results PROCEDURES No Known procedures INSTRUCTIONS MEDICATIONS ADMINISTERED No Known Medications MEDICAL (GENERAL) HISTORY Type Description Date Medical History hypertension Medical History sleep apnea-did not tolerate CPAP Medical History oxygen dependent at [facility] Medical History colonic polyps Medical History hyperlipidemia [...]
--- OUTSIDE RECORDS SUMMARY | 2018-02-26 19:04 | XMS REPORT ---
Author Author CHRIS STEVENSON [facility] Address [address] [place] [address] Care Team Providers Care Awning Maker And Installer Name Role Phone GRAHAMELLIOTT HANNAHANY Unavailable PROBLEMS Type Condition ICD9-CM Code QQP48-KB Code Onset Dates Condition Status SNOMED Code Problem Pulmonary asbestosis J61 Active 57723474 Problem Left ventricular diastolic dysfunction I51.9 Active 391572617 Problem Chronic gout, unspecified cause, unspecified site M1A.9XX0 Active 80627498 Problem Renal cyst, left N28.1 Active 81688209 Problem History of weight loss surgery Z98.84 Active 477946242 Problem Nocturnal hypoxia G47.34 Active 026883081 Problem Obstructive sleep apnea syndrome G47.33 Active 75838761 Problem History of diverticulitis Z87.19 Active 945349726071281 Problem Allergic rhinitis, unspecified allergic rhinitis type J30.9 Active 77488538 Problem Erectile dysfunction due to diseases classified elsewhere N52.1 Active 443257321 Problem Acute right-sided low back pain with right-sided sciatica M54.41 Active 023654757 Problem Psoriasis L40.9 Active 6708676 Problem Essential hypertension I10 Active 68779444 Problem Nephrolithiasis N20.0 Active 75234507 Problem Chronic prescription opiate use Z79.899 Active 202361850 Problem 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 Active 96264288 Problem Benign prostatic hyperplasia, presence of lower urinary tract symptoms unspecified, unspecified morphology N40.0 Active 334530138 Problem Moderate episode of recurrent major depressive disorder F33.1 Active 631488350 Problem Age-related osteoporosis without current pathological fracture M81.0 Active 75293199 Problem Low back pain M54.5 Active 563178215 Problem Anxiety F41.9 Active 07812292 Problem Urge incontinence N39.41 Active 759900949 Problem Hyperlipidemia, unspecified E78.5 Active 66161132 Problem Esophageal stricture K22.2 Active 73127444 Problem Cervicalgia M54.2 Active 6521854462594 Problem Primary insomnia F51.01 Active 483285034 ALLERGIES No Information ENCOUNTERS Encounter Location Date Diagnosis [facility] [id number] [place] [address] 09537- 4351 Sep, [facility] [id number] [place] [address] 01747- 0847 Aug, [facility] [address] 12495- 0532 Aug, [address]41.9 [facility] [id number] [place] [address] 87043- 9173 Aug, [facility] [id number] [place] [address] 67096- 1783 Jul, [facility] [address] 66433- 2408 Jul, Anxiety F41.9 [facility] [id number] [place] [address] 12859- 2797 June, Anxiety F41.9 [facility] [id number] [place] [address] 59515- 7684 June, [facility] [id number] [place] [address] 09462- 1221 June, Low back pain M54.5 ; Chronic prescription opiate use Z79.899 ; Candidal intertrigo B37.2 ; Urge incontinence N39.41 ; Essential hypertension I10 ; Moderate episode of recurrent major depressive disorder F33.1 ; Age-related osteoporosis without current pathological fracture M81.0 and BMI 45.0-49.9, adult Z68.42 [facility] [id number] [place] [address] 45179- 9825 June, [facility] [id number] [place] [address] 06715- 7946 May, Anxiety F41.9 [facility] [id number] [place] [address] 75166- 4644 May, [facility] [address] [address] 5652 May, [facility] [address] [place] [address] 907889- 9423 Apr, Anxiety F41.9 [facility] [id number] [place] [address] 73609- 4586 Apr, [facility] [id number] [place] [address] 04205- 8325 Apr, Low back pain M54.5 [facility] [id number] [place] [address] 80193- 3884 Apr, [facility] [id number] [place] [address] 91685- 0724 Apr, [facility] [id number] [place] [address] 66311- 3350 Apr, Anxiety F41.9 [facility] [address] [place] [address] 15000- 7349 Apr, Right groin pain R10.31 [facility] [address] [place] [address] 33561- 1927 Mar, [facility] [id number] [place] [address] 12934- 0344 Mar, [facility] [address] [place] [address] 34628- 0425 Mar, Anxiety F41.9 [facility] [address] [place] [address] 43171- 9138 Mar, Low back pain M54.5 [facility] [address] [place] [address] 02706- 8630 Mar, Right groin pain R10.31 ; Low back pain M54.5 and BMI 45.0- 49.9, adult Z68.42 [facility] [id number] [place] [address] 13333- 7294 Mar, [facility] [id number] [place] [address] 65685- 9788 Mar, [facility] [id number] [place] [address] 93520- 3378 Mar, [facility] [address] 64697 -0019 Mar, [facility] [id number] [place] [address] 55719 -4527 Mar, Cough R05 ; Pneumonia of right lower lobe due to infectious organism J18.1 and Abnormal chest x-ray R93.8 [facility] [id number] [place] [address] 64098- 9306 Mar, [facility] [id number] [place] [address] 02215- 2622 Mar, [facility] [id number] [place] [address] 01870- 3748 Jan, Anxiety F41.9 [facility] [id number] [place] [address] 31076- 2076 Jan, [facility] [id number] [place] [address] 86404- 7683 Jan, Moderate episode of recurrent major depressive disorder F33.1 [facility] [id number] [place] [address] 57386- 2564 Jan, Subacromial bursitis of right shoulder joint M75.51 ; Shortness of breath on exertion R06.02 and BMI 45.0-49.9, adult Z68.42 [facility] [id number] [place] [address] 86929- 2783 Dec, Anxiety F41.9 [facility] [id number] [place] [address] 18806- 8470 Dec, [facility] [address] [place] [address] 83114- 4438 Dec, Low back pain M54.5 [facility] [id number] [place] [address] 16729- 6572 Oct, Low back pain M54.5 [facility] [id number] [place] [address] 93696- 8657 Sep, [facility] [id number] [place] [address] 28421- 7193 Sep, Erectile dysfunction due to diseases classified elsewhere N52.1 [facility] [address] 26294- 7384 Sep, Erectile dysfunction due to diseases classified elsewhere N52.1 [facility] [id number] [place] [address] 53741- 8499 Sep, [facility] [id number] [place] [address] 59254- 3752 Sep, Erectile dysfunction due to diseases classified elsewhere N52.1 [facility] [id number] [place] [address] 67691- 0564 Sep, Low back pain M54.5 and Anxiety F41.9 [facility] [id number] [place] [address] 87012 -3929 Aug, Acute allergic rhinitis J30.9 [facility] [address] [place] [address] 10693- 4351 Aug, [facility] [id number] [place] [address] 66910- 3163 Aug, Anxiety F41.9 [facility] [id number] [place] [address] 30294- 4537 Jul, Low back pain M54.5 ; Chronic prescription opiate use Z79.899 and Essential hypertension I10 [facility] [id number] [place] [address] 10457- 3021 Jul, Anxiety F41.9 and Low back pain M54.5 [facility] [id number] [place] [address] 73995- 3968 June, [facility] [id number] [place] [address] 93929- 8466 June, Anxiety F41.9 [facility] [id number] [place] [address] 21338- 6018 May, Low back pain M54.5 [facility] [id number] [place] [address] 27615- 3213 May, [facility] [id number] [place] [address] 69193- 2028 May, Anxiety F41.9 [facility] [id number] [place] [address] 56232- 6799 Apr, [facility] [id number] [place] [address] 40270- 6790 Apr, Low back pain M54.5 [facility] [id number] [place] [address] 68882- 4297 Apr, Moderate episode of recurrent major depressive disorder F33.1 [facility] [id number] [place] [address] 33226- 0138 Apr, Anxiety F41.9 [facility] [id number] [place] [address] 15146- 5558 Apr, Low back pain M54.5 [facility] [id number] [place] [address] 75772- 6806 15 Apr, 2016 Elevated alkaline phosphatase level R74.8 [facility] [id number] [place] [address] 99023- 0169 10 Apr, 2016 Alkaline phosphatase elevation R74.8 [facility] [id number] [place] [address] 95526- 3094 06 Apr, [address] [facility] [id number] [place] [address] 60395- 3026 03 Apr, 2016 Low back pain M54.5 [facility] [id number] [place] [address] 21858- 0554 03 Apr, 2016 History of weight loss surgery Z98.84 ; Encounter for hepatitis C screening test for low risk patient Z11.59 ; History of herpes genitalis Z86.19 ; Essential hypertension I10 ; Hyperlipidemia, unspecified E78.5 ; Exposure to STD Z20.2 and Benign prostatic hyperplasia, presence of lower urinary tract symptoms unspecified, unspecified morphology N40.0 [facility] [id number] [place] [address] 85355- 5615 02 Apr, 2016 [facility] [id number] [place] [address] 15714- 3446 Mar, [facility] [id number] [place] [address] 73784- 1522 Mar, [facility] [id number] [place] [address] 50387- 1447 Mar, [facility] [id number] [place] [address] 16331- 6753 Mar, Acute right-sided low back pain with right-sided sciatica M54.41 [facility] [id number] [place] [address] 55368- 6023 Mar, Low back pain M54.5 [facility] [address] [place] [address] 94571 -5257 13 Mar, 2016 Muscle strain of chest wall, initial encounter S29.011A ; Muscle strain of right thigh, initial encounter S76.911A and Acute non- recurrent maxillary sinusitis J01.00 [facility] [address] [place] [address] 01486- 3614 Mar, Benign prostatic hyperplasia, presence of lower urinary tract symptoms unspecified, unspecified morphology N40.0 [facility] [id number] [place] [address] 22741- 0408 Jan, Low back pain M54.5 [facility] [id number] [place] [address] 58834- 2723 Jan, Low back pain M54.5 ; Essential hypertension I10 ; Hyperlipidemia, unspecified E78.5 ; Anxiety F41.9 ; Moderate episode of recurrent major depressive disorder F33.1 ; Primary insomnia F51.01 ; Exposure to STD Z20.2 ; Encounter for hepatitis C screening test for low risk patient Z11.59 and History of herpes genitalis Z86.19 [facility] [address] 47607- 2410 17 Jan, 2016 [facility] [address] 93962- 6586 Nov, [facility] [address] 93840- 4513 14 Dec, 2015 Anxiety F41.9 ; Cervicalgia M54.2 ; Moderate episode of recurrent major depressive disorder F33.1 and Encounter for immunization Z23 [facility] [id number] [place] [address] 19605- 2950 Oct, [facility] [address] 25987- 8066 Oct, [facility] [address] 17391- 6817 16 Nov, 2015 [facility] [id number] [place] [address] 79866- 3452 Oct, [facility] [address] 45368- 7843 Sep, [facility] [id number] [place] [address] 99005- 2157 Aug, Low back pain M54.5 ; Anxiety F41.9 ; Primary insomnia F51.01 and Chronic prescription opiate use Z79.899 [facility] [address] [facility] [id number] [address]- 9019 Jul, [facility] [address] [address]- 6830 Jul, [facility] [id number] [address]- 6388 Jul, [facility] [id number] [place] [address] 94459- 9653 Jul, [facility] [address] [facility] [id number] [address]- 7142 Jul, [facility] [address] [place] [address] 76363- 5734 June, [facility] [address] [address]- 8045 June, [facility] [address] [place] [address] 57595- 6106 June, [facility] [address] [address]- 3555 June, [facility] [address] [address]- 4149 May, Preoperative cardiovascular examination Z01.810 [facility] [address] [address]- 7409 May, [facility] [address] [address]- 1034 Apr, [facility] [address] [address]- 2425 Apr, Osteoarthritis of right knee M17.9 [facility] [address] [address]- 9489 30 May, 2015 [facility] [address] [address]- 5439 16 May, 2015 [facility] [address] [place] [address] 46596- 4346 Apr, [facility] [id number] [place] [address] 94453- 4774 Apr, [facility] [id number] [place] [address] 82769- 5231 Apr, History of excessive cerumen Z78.9 ; Obstructive sleep apnea syndrome G47.33 ; History of diverticulitis Z87.19 and Nephrolithiasis N20.0 [facility] [id number] [place] [address] 94789- 1403 Apr, [facility] [id number] [place] [address] 40731 -7683 Apr, Abdominal pain R10.9 [facility] [id number] [place] [address] 49377- 5690 Apr, [facility] [id number] [place] [address] 27217- 7994 Apr, Osteoarthritis of right knee M17.9 [facility] [id number] [place] [address] 55307- 2564 Mar, [facility] [id number] [place] [address] 93125- 3006 Mar, [facility] [id number] [place] [address] 32672- 7589 14 Mar, 2015 [facility] [id number] [place] [address] 44023- 7212 Mar, [facility] [id number] [place] [address] 64112 -9742 Mar, Pyelonephritis N12 ; Left-sided thoracic back pain M54.6 ; Hematuria, unspecified R31.9 and Kidney stone N20.0 [facility] [id number] [place] [address] 86118- 6544 Mar, History of weight loss surgery Z98.84 [facility] [id number] [place] [address] 51402- 8454 Mar, 2016 History of weight loss surgery Z98.84 and Hyperlipidemia, unspecified E78.5 [facility] [id number] [place] [address] 29432- 6782 Mar, 2016 Low back pain M54.5 ; Chronic prescription opiate use Z79.899 ; Hyperlipidemia, unspecified E78.5 ; Spasm of back muscles M62.830 and History of weight loss surgery Z98.84 [facility] [id number] [place] [address] 08158- 7204 Jan, [facility] [id number] [place] [address] 13371- 0782 Jan, [facility] [address] 74619- 3365 Jan, [facility] [id number] [place] [address] 98779- 9985 Dec, [facility] [id number] [place] [address] 38462- 7017 Dec, [facility] [id number] [place] [address] 99346- 5840 Dec, [facility] [id number] [place] [address] 34188- 0890 Nov, [facility] [id number] [place] [address] 23376- 2366 Nov, Obstructive sleep apnea syndrome G47.33 and Pharyngoesophageal dysphagia R13.14 [facility] [id number] [place] [address] 22138- 8748 Nov, [facility] [id number] [place] [address] 20342- 0812 Nov, [facility] [address] 51785- 2681 Nov, [facility] [id number] [id number] Oct, Dental examination V72.2 [facility] [address] [place] [address] 35906- 9021 Oct, [facility] [address] [place] [address] 52825- 3452 Oct, [facility] [id number] [place] [address] 98837- [address]2 Oct, [facility] [id number] [place] [address] 69963- 9262 Oct, [facility] [address] [place] [address] 70336- 4879 Oct, BPH (benign prostatic hyperplasia) 600.00 and Urinary frequency 788.41 [facility] [id number] [place] [address] 04685- 4249 Oct, [facility] [address] [place] [address] 05315- 4344 Oct, [facility] [id number] [place] [address] 13641- 8290 Oct, [facility] [address] [place] [address] 79110- 2718 Sep, Cerumen impaction 380.4 ; Cerumen debris on tympanic membrane 380.4 ; Psoriasis 696.1 and MICKY (secretory otitis media) 381.4 [facility] [id number] [id number] Sep, Dental examination V72.2 [facility] [address] [place] [address] 158507- 9463 Sep, Fatigue 780.79 ; Irritable bowel syndrome 564.1 ; Overweight 278.02 ; Poor sleep V69.4 ; Shaking spells 781.0 and Broken tooth [address]73.63 [facility] [address] [facility] [id number] [place] [address]- 0409 Sep, [facility] [address] [facility] [id number] [place] 6753 Sep, [facility] [address] [facility] [id number] [place] [address]- 3961 Aug, [facility] [id number] [place] [address]- 5276 Jul, [facility] [address] [id number] [place] [address]- 5968 Jul, [facility] [id number] [place] [address]- 0867 Jul, [facility] [id number] [place] [address] Jul, [facility] [id number] [address] June, Arthritis of knee, right 716.96 [facility] [id number] [address] June, [facility] [id number] [address] June, Elevated blood pressure reading without diagnosis of hypertension 796.2 [facility] [id number] [address] June, [facility] [address] [place] [id number] [address] June, [facility] [address] [place] [id number] [address] June, [facility] [address] [place] [id number] [place] [address] June, [facility] [address] [place] [id number] [address] May, [facility] [place] [facility] [address] [id number] [place] [address] 13 May, 2014 [facility] [place] [facility] [address] [id number] [place] [address] 30 Apr, 2014 [facility] [place] [facility] [address] [id number] [place] [address] 30 Apr, 2014 [facility] [place] [facility] [address] [id number] [place] [address] Apr, [facility] [place] [facility] [address] [id number] [place] [address]- [address] Apr, [facility] [place] [facility] [address] [id number] [place] [address] Apr, [facility] [place] [facility] [address] [id number] [place] [address]- [address] Apr, [facility] [place] [facility] [address] [id number] [place] [address]- [address] Apr, [facility] [place] [facility] [address] [id number] [place] [address]- [address] Apr, [facility] [place] [facility] [address] [id number] [place] [address] Apr, [facility] [place] [facility] [address] [id number] [place] [address]- [address] Apr, [facility] [place] [facility] [address] [id number] [place] [address]- [address] Apr, [facility] [place] [facility] [address] [id number] [place] [address]- [address] Apr, [facility] [place] [facility] [address] [id number] [place] [address]- [address] Apr, [facility] [place] [facility] [address] [id number] [place] [address]- [address] Apr, [facility] [place] [facility] [address] [id number] [place] [address]- [address] 23 Apr, 2014 [facility] [place] [facility] [address] [facility] [id number] [place] [address]- [address] 23 Apr, 2014 [facility] [place] [facility] [address] [facility] [id number] [place] [address]- [address] 20 Apr, 2014 [facility] [place] [facility] [address] [facility] [id number] [place] [address] 20 Apr, 2014 [facility] [place] [facility] [address] [facility] [id number] [place] [address] 18 Apr, 2014 [facility] [place] [facility] [address] [facility] [id number] [place] [address]- [address] 18 Apr, 2014 [facility] [place] [facility] [address] [place] [id number] [place] [address]- [address] 13 Apr, 2014 [facility] [place] [facility] [address] [place] [id number] [place] [address]- [address] 13 Apr, 2014 [facility] [place] [facility] [address] [facility] [id number] [place] [address]- [address] 13 Apr, 2014 [facility] [place] [facility] [address] [id number] [place] [address] 13 Apr, 2014 [facility] [place] [facility] [address] [id number] [place] [address]- 4094 12 Apr, 2014 [facility] [place] [facility] [address] [facility] [id number] [address] 12 Apr, 2014 [facility] [place] [facility] [address] [facility] [id number] [place] [address]- 9516 06 Apr, 2014 [facility] [place] [facility] [address] [facility] [id number] [place] [address]- 5412 06 Apr, 2014 [facility] [place] [facility] [address] [facility] [id number] [place] [address]- 1492 05 Apr, 2014 [facility] [place] [facility] [id number] [address] Apr, [facility] [place] [facility] [address] [id number] [place] [address]- 0370 Apr, [facility] [place] [facility] [address] [id number] [place] [address]- 4479 Apr, [facility] [place] [facility] [address] [id number] [place] [address]- 1327 Apr, [facility] [place] [facility] [address] [id number] [place] [address]- 7248 Mar, [facility] [place] [facility] [address] [id number] [place] [address]- 2026 Mar, [facility] [place] [facility] [address] [id number] [place] [address]- 5212 Mar, [facility] [place] [facility] [address] [id number] [place] [address]- 1674 Mar, [facility] [place] [facility] [address] [id number] [place] [address]- 3795 Mar, [facility] [place] [facility] [address] [id number] [place] [address]- 3472 Mar, [facility] [place] [facility] [address] [facility] [id number] [place] [address]- 4478 Mar, [facility] [place] [facility] [address] [id number] [place] [address]- 8281 Mar, [facility] [place] [facility] [address] [id number] [address]- 4063 Mar, [facility] [place] [facility] [address] [id number] [place] [address]- 8477 Mar, [facility] [place] [facility] [address] [id number] [place] [address]- 8917 Jan, [facility] [place] [facility] [address] [id number] [place] [address]- 8257 Jan, [facility] [place] [facility] [address] [id number] [place] [address]- 3698 Jan, [facility] [place] [facility] [address] [id number] [place] [address]- 9274 Jan, [facility] [place] [facility] [address] [id number] [place] [address]- 0883 Jan, [facility] [place] [facility] [address] [id number] [place] [address]- 0009 Jan, [facility] [place] [facility] [address] [id number] [place] [address]- 4986 Jan, [facility] [place] [facility] [address] [id number] [place] [address]- 2575 Jan, [facility] [place] [facility] [address] [id number] [place] [address]- 9797 Jan, [facility] [place] [facility] [address] [id number] [place] [address]- 7786 Jan, [facility] [place] [facility] [address] [id number] [place] [address]- 3051 Jan, [facility] [place] [facility] [address] [id number] [place] [address]- 7700 Jan, [facility] [place] [facility] [address] [id number] [place] [address]- 3791 Dec, [facility] [place] [facility] [address] [id number] [place] [address]- 4276 Dec, [facility] [place] [facility] [address] [id number] [place] [address]- 6571 Dec, [facility] [place] [facility] [address] [id number] [place] [address]- 1031 Dec, [facility] [place] [facility] [address] [id number] [place] [address]- 2189 14 Dec, 2013 [facility] [place] [facility] [address] [id number] [place] [address]- 7152 Dec, [facility] [place] [facility] [address] [id number] [place] [address]- 1549 Dec, [facility] [place] [facility] [address] [id number] [place] 8464 Dec, [facility] [place] [facility] [address] [id number] [place] [address] Dec, [facility] [place] [facility] [address] [id number] [place] [address]- 5587 Dec, [facility] [place] [facility] [address] [id number] [place] [address]- 4131 Nov, [facility] [place] [facility] [address] [id number] [place] [address]- 1144 Nov, [facility] [place] [facility] [address] [id number] [place] [address]- 9528 Nov, [facility] [place] [facility] [address] [id number] [address]- 2256 Nov, [facility] [place] [facility] [address] [id number] [address]- 2416 Nov, [facility] [place] [facility] [address] [id number] [address]- 1243 Nov, [facility] [place] [facility] [address] [id number] [address]- 2448 Nov, [facility] [place] [facility] [address] [id number] [address]- 9908 Nov, [facility] [place] [facility] [address] [id number] [address]- 4963 Nov, [facility] [place] [facility] [address] [id number] [address]- 3852 Nov, [facility] [place] [facility] [address] [id number] [address]- 5098 Nov, [facility] [place] [facility] [address] [id number] [place] [address]- 9881 17 Nov, 2013 [facility] [place] [facility] [address] [id number] [place] [address]- 0098 14 Nov, 2013 [facility] [place] [facility] [address] [id number] [place] [address]- 6290 14 Nov, 2013 [facility] [place] [facility] [address] [id number] [place] [address]- 3330 10 Nov, 2013 [facility] [place] [facility] [address] [id number] [place] [address]- 0514 10 Nov, 2013 [facility] [place] [facility] [address] [id number] [place] [address]- 6349 08 Nov, 2013 [facility] [place] [facility] [address] [id number] [place] [address]- 8508 08 Nov, 2013 [facility] [place] [facility] [address] [id number] [place] [address]- 2087 Nov, [facility] [place] [facility] [address] [id number] [place] [address]- 2954 Nov, [facility] [place] [facility] [address] [id number] [place] [address]- 0113 26 Oct, 2013 [facility] [place] [facility] [address] [id number] [place] [address]- 1226 26 Oct, 2013 [facility] [place] [facility] [address] [id number] [place] [address]- 2547 19 Oct, 2013 [facility] [place] [facility] [address] [id number] [place] [address]- 2545 19 Oct, 2013 [facility] [place] [facility] [address] [id number] [place] [address]- 2548 12 Oct, 2013 [facility] [place] [facility] [address] [id number] [place] [address]- 254 12 Oct, 2013 [facility] [place] [facility] [address] [id number] [place] [address]- 8936 Oct, [facility] [place] [facility] [address] [id number] [place] [address]- 4597 Oct, [facility] [place] [facility] [address] [id number] [place] [address]- 4297 Oct, [facility] [place] [facility] [address] [id number] [place] [address]- 9792 Oct, [facility] [place] [facility] [address] [id number] [place] [address]- 7373 Sep, [facility] [place] [facility] [address] [id number] [place] [address]- 5207 Sep, [facility] [place] [facility] [address] [id number] [place] [address]- 3252 Sep, [facility] [place] [facility] [address] [id number] [place] [address]- 8477 Sep, [facility] [place] [facility] [address] [id number] [place] [address]- 0372 Sep, [facility] [place] [facility] [address] [id number] [place] [address]- 5119 Sep, [facility] [place] [facility] [address] [id number] [place] [address]- 1644 Sep, [facility] [place] [facility] [address] [id number] [place] [address]- 6449 Sep, [facility] [place] [facility] [address] [id number] [place] [address]- 8925 Sep, [facility] [place] [facility] [address] [id number] [place] [address]- 1309 Sep, [facility] [place] [facility] [address] [id number] [place] [address]- 2178 Sep, [facility] [place] [facility] [address] [id number] [place] [address]- 9765 Sep, [facility] [place] [facility] [address] [id number] [place] [address]- 3322 Sep, [facility] [place] [facility] [address] [id number] [place] [address]- 3912 Sep, [facility] [place] [facility] [address] [id number] [place] [address]- 7541 Sep, [facility] [place] [facility] [address] [id number] [place] [address]- 8233 Sep, [facility] [place] [facility] [address] [id number] [place] [address]- 4640 Sep, [facility] [place] [facility] [address] [id number] [place] [address]- 4915 Sep, [facility] [place] [facility] [address] [id number] [place] [address]- 5344 Sep, [facility] [place] [facility] [address] [id number] [place] [address]- 7095 Sep, [facility] [place] [facility] [address] [id number] [place] [address]- 6071 Sep, [facility] [place] [facility] [address] [id number] [place] [address]- 7822 Sep, [facility] [place] [facility] [address] [id number] [place] [address]- 2286 Sep, [facility] [place] [facility] [address] [id number] [place] [address]- 5792 Sep, [facility] [place] [facility] [address] [id number] [place] [address]- 0487 Sep, [facility] [place] [facility] [address] [id number] [place] [address]- 3559 Aug, [facility] [place] [facility] [address] [id number] [place] [address]- 9745 Aug, [facility] [place] [facility] [address] [id number] [place] [address]- 0939 Aug, [facility] [place] [facility] [address] [id number] [place] [address]- 9729 Aug, 2013 [facility] [place] [facility] [address] [id number] [place] [address]- 5508 Aug, [facility] [place] [facility] [address] [id number] [place] [address]- 0905 Aug, 2013 [facility] [place] [facility] [address] [id number] [place] [address]- 3316 Aug, 2013 [facility] [place] [facility] [address] [id number] [place] [address]- 3961 Aug, 2013 [facility] [place] [facility] [address] [id number] [place] [address]- 5298 Aug, [facility] [place] [facility] [address] [id number] [place] [address]- 8898 Aug, [facility] [place] [facility] [address] [id number] [place] [address]- 4427 Aug, [facility] [place] [facility] [address] [id number] [place] [address]- 6114 Aug, [facility] [place] [facility] [address] [id number] [place] [address]- 0957 Aug, [facility] [place] [facility] [address] [id number] [place] [address]- 6049 Jul, [facility] [place] [facility] [address] [id number] [place] [address]- 1070 Jul, [facility] [place] [facility] [address] [id number] [place] [address]- 2281 Jul, [facility] [place] [facility] [address] [id number] [place] [address]- 2124 Jul, [facility] [place] [facility] [address] [id number] [place] [address]- 4006 Jul, [facility] [place] [facility] [address] [id number] [place] [address]- 7801 Jul, [facility] [place] [facility] [address] [id number] [place] [address]- 6568 Jul, [facility] [place] [facility] [address] [id number] [place] [address]- 0959 June, [facility] [place] [facility] [address] [id number] [place] [address]- 0212 June, [facility] [place] [facility] [address] [id number] [place] [address]- 7529 June, [facility] [place] [facility] [address] [id number] [place] [address]- 6392 June, [facility] [place] [facility] [address] [id number] [place] [address]- 1497 May, [facility] [place] [facility] [address] [id number] [place] [address]- 6150 May, [facility] [place] [facility] [address] [id number] [place] [address]- 9626 May, [facility] [place] [facility] [address] [id number] [place] [address]- 0018 May, [facility] [place] [facility] [address] [id number] [place] [address]- 5891 May, [facility] [place] [facility] [address] [id number] [place] [address]- 9594 May, [facility] [place] [facility] [address] [id number] [place] [address]- 6936 May, [facility] [place] [facility] [address] [id number] [place] [address]- 6882 May, [facility] [place] [facility] [address] [id number] [place] [address]- 8534 May, [facility] [place] [facility] [address] [id number] [place] 6702 May, [facility] [place] [facility] [address] [id number] [place] [address]- 7349 Apr, [facility] [place] [facility] [address] [id number] [place] [address]- 7980 Apr, [facility] [place] [facility] [address] [id number] [place] [address] Apr, [facility] [place] [facility] [address] [id number] [place] [address]- 6557 Apr, [facility] [place] [facility] [address] [id number] [place] [address]- 0424 Apr, [facility] [place] [facility] [address] [id number] [place] [address]- 3881 Apr, [facility] [place] [facility] [address] [id number] [place] [address]- 1318 Apr, [facility] [place] [facility] [address] [id number] [place] [address]- 4455 Apr, [facility] [place] [facility] [address] [id number] [place] [address]- 9565 Apr, [facility] [place] [facility] [address] [id number] [place] [address]- 9212 Apr, [facility] [place] [facility] [address] [id number] [place] [address]- 4082 Mar, [facility] [place] [facility] [address] [id number] [place] [address]- 1064 Mar, [facility] [place] [facility] [address] [id number] [place] [address]- 4349 Mar, [facility] [place] [facility] [address] [id number] [place] [address]- 8794 Mar, [facility] [place] [facility] [address] [id number] [place] [address]- 4740 Mar, [facility] [place] [facility] [address] [id number] [place] [address]- 6545 Mar, [facility] [address] [id number] [place] [address]- 3765 Jan, [facility] [place] [facility] [address] [id number] [place] [address]- 6933 Jan, [facility] [place] [facility] [address] [id number] [place] [address]- 2885 Jan, [facility] [place] [facility] [address] [id number] [place] [address]- 8520 Jan, [facility] [place] [facility] [address] [id number] [place] [address]- 9709 Jan, [facility] [place] [facility] [address] [id number] [place] [address]- 2165 Jan, [facility] [place] [facility] [address] [id number] [place] [address]- 0776 Jan, [facility] [place] [facility] [address] [id number] [address]- 0432 Jan, [facility] [place] [facility] [address] [id number] [place] [address]- 0247 Jan, [facility] [place] [facility] [address] [id number] [address]- 4753 Dec, [facility] [place] [facility] [address] [id number] [address]- 1125 Dec, [facility] [place] [facility] [address] [id number] [place] [address]- 0164 Dec, [facility] [place] [facility] [address] [id number] [address]- 4745 Dec, [facility] [place] [facility] [address] [id number] [address]- 1023 Dec, [facility] [place] [facility] [address] [id number] [address]- 1248 Dec, [facility] [place] [facility] [address] [id number] [address]- 8285 Dec, [facility] [place] [facility] [address] [id number] [place] [address]- 0267 Dec, [facility] [place] [facility] [address] [id number] [place] [address]- 0352 Dec, [facility] [place] [facility] [address] [facility] [id number] [place] [address]- 8939 Dec, [facility] [place] [facility] [address] [id number] [place] [address]- 0155 Dec, [facility] [place] [facility] [address] [id number] [place] [address]- 1965 Nov, [facility] [place] [facility] [address] [id number] [place] [address]- 5816 Nov, [facility] [place] [facility] [address] [id number] [place] [address]- 9821 Nov, [facility] [place] [facility] [address] [id number] [place] [address]- 7890 Nov, [facility] [place] [facility] [address] [facility] [id number] [place] [address]- 0329 Nov, [facility] [place] [facility] [address] [facility] [id number] [place] [address]- 0978 Oct, [facility] [place] [facility] [address] [id number] [place] [address]- 8770 Oct, [facility] [place] [facility] [address] [id number] [address]- 5768 Sep, [facility] [place] [facility] [address] [id number] [place] [address]- 0037 Aug, [facility] [place] [facility] [address] [facility] [id number] [place] [address]- 1319 Aug, [facility] [place] [facility] [address] [facility] [id number] [place] [address]- 0387 Aug, [facility] [place] [facility] [address] [id number] [place] [address]- 7790 Aug, [facility] [address] [id number] [place] [address]- 4192 Jul, [facility] [place] [facility] [address] [id number] [place] [address]- 2546 Jul, [facility] [place] [facility] [address] [id number] [place] [address]- 8925 June, [facility] [place] [facility] [address] [id number] [place] [address]- 4917 June, [facility] [place] [facility] [address] [id number] [place] [address]- 9363 June, [facility] [place] [facility] [address] [id number] [place] [address]- 4574 May, [facility] [place] [facility] [address] [id number] [place] [address]- 0569 May, [facility] [address] [id number] [place] [address]- 3574 May, [facility] [place] [facility] [address] [id number] [place] [address] Apr, [facility] [place] [facility] [address] [id number] [place] [address] 18 Apr, 2012 [facility] [place] [facility] [address] [id number] [place] [address] 15 Apr, 2012 [facility] [place] [facility] [address] [id number] [place] [address] 14 Apr, 2012 [facility] [place] [facility] [address] [id number] [place] [address] Apr, [facility] [place] [facility] [address] [id number] [place] [address] Apr, [facility] [place] [facility] [address] [id number] [place] [address] Apr, [facility] [address] [id number] [place] [address] Apr, [facility] [address] [id number] [place] [address] 85[address] Apr, [facility] [address] [facility] [id number] [place] [address] Apr, [facility] [address] [id number] [place] [address] Apr, [facility] [address] [id number] [place] [address]- 1416 Apr, [facility] [address] [facility] [id number] [place] [address] Apr, [facility] [address] [facility] [id number] [place] [address] Mar, [facility] [address] [id number] [place] [address]187 Mar, [facility] [address] [facility] [id number] [place] [address] Mar, [facility] [address] [facility] [id number] [place] [address]15 Mar, [facility] [address] [facility] [id number] [place] [address] 35[address] Mar, [facility] [address] [id number] [address] Jan, [facility] [place] [facility] [address] [id number] [place] [address] 48[address] Jan, [facility] [place] [facility] [address] [facility] [id number] [place] [address] Jan, [facility] [place] [facility] [address] [facility] [id number] [place] [address]- [address] Jan, [facility] [place] [facility] [address] [id number] [place] [address]- [address]77 14 Jan, 2012 [facility] [place] [facility] [address] [id number] [place] [address]- [address] 13 Jan, 2012 [facility] [place] [facility] [address] [id number] [place] [address] 2546 13 Jan, 2012 [facility] [place] [facility] [address] [id number] [place] [address]- 3396 11 Jan, 2012 [facility] [place] [facility] [address] [id number] [place] [address]- 8566 06 Jan, 2012 [facility] [place] [facility] [address] [id number] [place] [address]- [address] 06 Jan, 2012 [facility] [place] [facility] [address] [id number] [place] [address] 04 Jan, 2012 [facility] [place] [facility] [address] [id number] [place] [address]- 4159 04 Jan, 2012 [facility] [place] [facility] [address] [id number] [place] [address]- 7826 04 Jan, 2012 [facility] [place] [facility] [address] [id number] [place] [address]- 7849 04 Jan, 2012 [facility] [place] [facility] [address] [id number] [place] [address]- [address] Dec, [facility] [place] [facility] [address] [id number] [place] [address]- 0656 26 Jan, 2012 [facility] [place] [facility] [address] [id number] [place] [address] 2546 Dec, [facility] [place] [facility] [address] [id number] [place] [address]- 6496 19 Jan, 2012 [facility] [place] [facility] [address] [id number] [place] [address] 2546 15 Jan, 2012 [facility] [place] [facility] [address] [id number] [place] [address] 15 Jan, 2012 [facility] [place] [facility] [address] [id number] [place] [address]- [address] 14 Jan, 2012 [facility] [place] [facility] [address] [id number] [place] [address]- 6884 14 Jan, 2012 [facility] [place] [facility] [address] [id number] [place] [address]- 0125 14 Jan, 2012 [facility] [place] [facility] [address] [id number] [place] [address]- 2515 14 Jan, 2012 [facility] [place] [facility] [address] [id number] [place] [address]- 9243 07 Jan, 2012 [facility] [place] [facility] [address] [id number] [place] [address]- [address] 07 Jan, 2012 [facility] [place] [facility] [address] [facility] [id number] [place] [address]- 6434 16 Dec, 2011 [facility] [place] [facility] [address] [id number] [place] [address]- 1099 16 Dec, 2011 [facility] [place] [facility] [address] [id number] [place] [address]- 5663 13 Nov, 2011 [facility] [place] [facility] [address] [id number] [place] [address]- 7156 13 Nov, 2011 [facility] [place] [facility] [address] [id number] [address] 13 Nov, 2011 [facility] [place] [facility] [address] [id number] [address]- 49[address] 12 Nov, 2011 [facility] [place] [facility] [address] [id number] [place] [address] 38[address] Sep, [facility] [place] [facility] [address] [id number] [address] 89[address] Sep, [facility] [place] [facility] [address] [facility] [id number] [place] [address]- [address]81 Aug, [facility] [place] [facility] [address] [id number] [place] [address]- 2941 Aug, [facility] [address] [id number] [place] [address]- 4186 Aug, [facility] [place] [facility] [address] [id number] [place] [address]- 3896 Aug, [facility] [address] [id number] [place] [address]- 1136 June, [facility] [place] [facility] [address] [id number] [place] [address]- 7086 June, [facility] [address] [id number] [place] [address]- 8211 May, [facility] [address] [id number] [place] [address]- 5906 Apr, [facility] [address] [id number] [place] [address]- 5745 Apr, [facility] [address] [id number] [place] [address]- 4809 Apr, [facility] [address] [id number] [place] [address]- 3574 Apr, [facility] [address] [id number] [place] [place] [address] Apr, [facility] [address] [id number] [place] [address] Apr, [facility] [address] [id number] [place] [address] Mar, [facility] [place] [facility] [address] [id number] [place] [address] Mar, [facility] [place] [facility] [address] [id number] [place] [address] Mar, [facility] [place] [facility] [address] [id number] [place] [address] Jan, [facility] [place] [facility] [address] [id number] [place] [address] [address] Jan, [facility] [place] [facility] [address] [id number] [place] [address] Jan, [facility] [place] [facility] [address] [id number] [place] [address] Jan, [facility] [place] [facility] [address] [id number] [place] [address] Jan, [facility] [place] [facility] [address] [id number] [place] [address] Jan, [facility] [place] [facility] [address] [id number] [place] [address] Jan, [facility] [place] [facility] [address] [id number] [place] [address] Dec, [facility] [place] [facility] [address] [id number] [place] [address] Dec, [facility] [place] [facility] [address] [id number] [place] [address] Nov, [facility] [place] [facility] [address] [id number] [place] [address] Nov, [facility] [place] [facility] [address] [id number] [place] [address] Nov, [facility] [place] [facility] [address] [id number] [address] Nov, [facility] [place] [facility] [address] [id number] [place] [address] Oct, [facility] [place] [facility] [address] [id number] [place] [address] Sep, [facility] [place] [facility] [address] [id number] [place] [address] Mar, [facility] [place] [facility] [address] [id number] [address] 22 Jan, 2010 [facility] [address] [id number] [place] [address] Dec, [facility] [place] [facility] [address] [id number] [address] Dec, [facility] [place] [facility] [address] [facility] [id number] [place] [address]- [address] Dec, [facility] [place] [facility] [address] [id number] [place] [address] Dec, [facility] [place] [facility] [address] [id number] [place] [address]- [address] 26 Nov, 2009 [facility] [place] [facility] [address] [id number] [place] [address] 15 Nov, 2009 [facility] [address] [facility] [id number] [place] [address] 14 Nov, 2009 [facility] [place] [facility] [address] [facility] [id number] [place] [address]- [address] 14 Nov, 2009 [facility] [place] [facility] [address] [facility] [id number] [place] [address] Oct, [facility] [place] [facility] [address] [facility] [id number] [place] [address] Jul, [facility] [place] [facility] [address] [id number] [place] [address] June, [facility] [place] [facility] [address] [facility] [id number] [place] [address] June, [facility] [place] [facility] [address] [id number] [place] [address] Apr, [facility] [place] [facility] [address] [id number] [place] [address] Mar, [facility] [place] [facility] [address] [facility] [id number] [place] [address] 24 Jan, 2009 [facility] [place] [facility] [address] [id number] [address] Jan, [facility] [id number] [address] Dec, [facility] [id number] [address] Dec, [facility] [id number] [address] Dec, [facility] [id number] [address] Dec, [facility] [id number] [address] Nov, [facility] [id number] [address] Jul, [facility] [id number] [address] June, IMMUNIZATIONS No Known Immunizations SOCIAL HISTORY Never Assessed REASON FOR VISIT Refill request PLAN OF CARE VITAL SIGNS MEDICATIONS Medication Instructions Dosage Frequency Start Date End Date Duration Status Trospium Chloride 20 mg Orally 2 times a day 1 tablet 12h 30 days Active RESULTS No Results PROCEDURES No Known procedures INSTRUCTIONS MEDICATIONS ADMINISTERED No Known Medications MEDICAL (GENERAL) HISTORY Type Description Date Medical History hypertension Medical History sleep apnea-did not tolerate CPAP Medical History oxygen dependent at [facility] Medical History colonic polyps Medical History [...]
--- OUTSIDE RECORDS SUMMARY | 2018-02-26 19:05 | XMS REPORT ---
Author Author AYE DE LA VEGA Organization [facility] Address [address] [place] [address] Care Team Providers Care Corporate Controller Name Role Phone AYE DE LA VEGA Unavailable PROBLEMS Type Condition ICD9-CM Code FSF33-GL Code Onset Dates Condition Status SNOMED Code Problem Pulmonary asbestosis J61 Active 76182148 Problem Left ventricular diastolic dysfunction I51.9 Active 003297067 Problem Chronic gout, unspecified cause, unspecified site M1A.9XX0 Active 45456718 Problem Renal cyst, left N28.1 Active 48536400 Problem History of weight loss surgery Z98.84 Active 389101212 Problem Nocturnal hypoxia G47.34 Active 016497916 Problem Obstructive sleep apnea syndrome G47.33 Active 79186750 Problem History of diverticulitis Z87.19 Active [id number] Problem Allergic rhinitis, unspecified allergic rhinitis type J30.9 Active 96437378 Problem Erectile dysfunction due to diseases classified elsewhere N52.1 Active 169100174 Problem Acute right-sided low back pain with right-sided sciatica M54.41 Active 864793422 Problem Psoriasis L40.9 Active 8253559 Problem Essential hypertension I10 Active 58904585 Problem Nephrolithiasis N20.0 Active 97031565 Problem Chronic prescription opiate use Z79.899 Active 098228991 Problem 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 Active 01822937 Problem Benign prostatic hyperplasia, presence of lower urinary tract symptoms unspecified, unspecified morphology N40.0 Active 592419344 Problem Moderate episode of recurrent major depressive disorder F33.1 Active 827376952 Problem Age-related osteoporosis without current pathological fracture M81.0 Active 88349532 Problem Low back pain M54.5 Active 253772781 Problem Anxiety F41.9 Active 71162890 Problem Urge incontinence N39.41 Active 063008543 Problem Hyperlipidemia, unspecified E78.5 Active 61932937 Problem Esophageal stricture K22.2 Active 97093604 Problem Cervicalgia M54.2 Active 0540291660178 Problem Primary insomnia F51.01 Active 589886892 ALLERGIES No Information ENCOUNTERS Encounter Location Date Diagnosis [facility] [id number] [place] [address] 98552- 7607 Aug, [facility] [id number] [place] [address] 02725- 9863 Aug, Anxiety F41.9 [facility] [address] 88124- 6534 Aug, [facility] [address] 86807- 1622 Jul, [facility] [address] 51812- 6087 Jul, Anxiety F41.9 [facility] [address] 77727- 2348 June, Anxiety F41.9 [facility] [id number] [place] [address] 19841- 0571 June, [facility] [id number] [place] [address] 38221- 5800 June, Low back pain M54.5 ; Chronic prescription opiate use Z79.899 ; Candidal intertrigo B37.2 ; Urge incontinence N39.41 ; Essential hypertension I10 ; Moderate episode of recurrent major depressive disorder F33.1 ; Age-related osteoporosis without current pathological fracture M81.0 and BMI 45.0-49.9, adult Z68.42 [facility] [id number] [place] [address] 92569- 6922 June, [facility] [id number] [place] [address] 25325- 4015 May, Anxiety F41.9 [facility] [id number] [place] [address] 35016- 8592 May, [facility] [address] 24175- 1069 May, [facility] [id number] [place] [address] 58418- 3546 Apr, Anxiety F41.9 [facility] [id number] [place] [address] 50186- 5246 Apr, [facility] [id number] [place] [address] 07119- 7616 Apr, Low back pain M54.5 [facility] [id number] [place] [address] 56235- 0812 Apr, [facility] [address] 94856- 3734 Apr, [facility] [id number] [place] [address] 68452- 5351 Apr, Anxiety F41.9 [facility] [id number] [place] [address] 93753- 1951 Apr, Right groin pain R10.31 [facility] [id number] [place] [address] 44041- 4707 Mar, [facility] [id number] [place] [address] 93868- 4656 Mar, [facility] [id number] [place] [address] 02947- 5309 Mar, Anxiety F41.9 [facility] [id number] [place] [address] 85491- 9616 Mar, Low back pain M54.5 [facility] [id number] [place] [address] 94272- 3149 Mar, Right groin pain R10.31 ; Low back pain M54.5 and BMI 45.0- 49.9, adult Z68.42 [facility] [id number] [place] [address] 13401- 0123 Mar, [facility] [address], [place] [address]- 3858 Mar, [facility] [id number] [place] [address] 92997- 6879 Mar, [facility] [id number] [place] [address] 54321 -0833 Mar, [facility] [id number] [place] [address] 24665 -0438 Mar, Cough R05 ; Pneumonia of right lower lobe due to infectious organism J18.1 and Abnormal chest x-ray R93.8 [facility] [id number] [place] [address] 58191- 6811 Mar, [facility] [id number] [place] [address] 54071- 9875 Mar, [facility] [id number] [place] [address] 46895- 5639 Jan, Anxiety F41.9 [facility] [id number] [place] [address] 24197- 7246 Jan, [facility] [id number] [place] [address] 76679- 2249 Jan, Moderate episode of recurrent major depressive disorder F33.1 [facility] [id number] [place] [address] 27575- 9037 Jan, Subacromial bursitis of right shoulder joint M75.51 ; Shortness of breath on exertion R06.02 and BMI 45.0-49.9, adult Z68.42 [facility] [id number] [place] [address] 62589- 5544 Dec, Anxiety F41.9 [facility] [id number] [place] [address] 08249- 6472 Dec, [facility] [id number] [place] [address] 90469- 3930 Dec, Low back pain M54.5 [facility] [address], [place] [address]- 1326 Oct, Low back pain M54.5 [facility] [id number] [place] [address] 53533- 8007 Sep, [facility] [id number] [place] [address] 74179- 8050 Sep, Erectile dysfunction due to diseases classified elsewhere N52.1 [facility] [id number] [place] [address] 45199- 5418 Sep, Erectile dysfunction due to diseases classified elsewhere N52.1 [facility] [id number] [place] [address] 51413- 8381 Sep, [facility] [id number] [place] [address] 97541- 8892 Sep, Erectile dysfunction due to diseases classified elsewhere N52.1 [facility] [id number] [place] [address] 14428- 3700 Sep, Low back pain M54.5 and Anxiety F41.9 [facility] [id number] [place] [address] 76524 -8659 Aug, Acute allergic rhinitis J30.9 [facility] [id number] [place] [address] 81708- 6775 Aug, [facility] [id number] [place] [address] 97264- 3250 05 Aug, 2016 Anxiety F41.9 [facility] [address] [place] [address] 60188- 9045 15 Jul, 2016 Low back pain M54.5 ; Chronic prescription opiate use Z79.899 and Essential hypertension I10 [facility] [id number] [place] [address] 13851- 5118 07 Jul, 2016 Anxiety F41.9 and Low back pain M54.5 [facility] [address], [place] [address]- 5032 June, [facility] [id number] [place] [address] 09481- 8241 June, Anxiety F41.9 [facility] [id number] [place] [address] 81087- 2430 May, Low back pain M54.5 [facility] [id number] [place] [address] 06575- 4043 May, [facility] [id number] [place] [address] 31562- 9782 May, Anxiety F41.9 [facility] [id number] [place] [address] 54758- 5752 Apr, [facility] [id number] [place] [address] 64754- 0724 Apr, Low back pain M54.5 [facility] [id number] [place] [address] 13075- 2374 Apr, Moderate episode of recurrent major depressive disorder F33.1 [facility] [id number] [place] [address] 91009- 4881 Apr, Anxiety F41.9 [facility] [id number] [place] [address] 99164- 4164 Apr, Low back pain M54.5 [facility] [id number] [place] [address] 02538- 9570 15 Apr, 2016 Elevated alkaline phosphatase level R74.8 [facility] [id number] [place] [address] 00222- 6768 10 Apr, 2016 Alkaline phosphatase elevation R74.8 [facility] [id number] [place] [address] 40219- 8256 06 Apr, 2016 Anxiety F41.9 [facility] [id number] [place] [address] 36292- 0587 03 Apr, 2016 Low back pain M54.5 [facility] [id number] [place] [address] 51328- 6804 03 Apr, 2016 Essential hypertension I10 ; History of weight loss surgery Z98.84 ; History of herpes genitalis Z86.19 ; Encounter for hepatitis C screening test for low risk patient Z11.59 ; Hyperlipidemia, unspecified E78.5 ; Benign prostatic hyperplasia, presence of lower urinary tract symptoms unspecified, unspecified morphology N40.0 and Exposure to STD Z20.2 [facility] [id number] [place] [address] 05598- 6947 02 Apr, 2016 [facility] [id number] [place] [address] 61907- 2768 Mar, [facility] [id number] [place] [address] 63742- 5206 Mar, [facility] [id number] [place] [address] 26191- 7958 Mar, [facility] [id number] [place] [address] 62035- 8308 Mar, Acute right-sided low back pain with right-sided sciatica M54.41 [facility] [id number] [place] [address] 83384- 7193 Mar, Low back pain M54.5 [facility] [id number] [place] [address] 85306 -5301 Mar, Muscle strain of chest wall, initial encounter S29.011A ; Muscle strain of right thigh, initial encounter S76.911A and Acute non- recurrent maxillary sinusitis J01.00 [facility] [id number] [place] [address] 92256- 6507 Mar, Benign prostatic hyperplasia, presence of lower urinary tract symptoms unspecified, unspecified morphology N40.0 [facility] [id number] [place] [address] 82118- 3194 Jan, Low back pain M54.5 [facility] [id number] [place] [address] 73310- 2782 Jan, Low back pain M54.5 ; Essential hypertension I10 ; Hyperlipidemia, unspecified E78.5 ; Anxiety F41.9 ; Moderate episode of recurrent major depressive disorder F33.1 ; Primary insomnia F51.01 ; Exposure to STD Z20.2 ; Encounter for hepatitis C screening test for low risk patient Z11.59 and History of herpes genitalis Z86.19 [facility] [id number] [place] [address] 88172- 9002 17 Jan, 2016 [facility] [address] 36665- 4202 20 Dec, 2015 [facility] [id number] [place] [address] 25931- 3588 14 Dec, 2015 Anxiety F41.9 ; Cervicalgia M54.2 ; Moderate episode of recurrent major depressive disorder F33.1 and Encounter for immunization Z23 [facility] [id number] [place] [address] 69695- 8824 Oct, [facility] [id number] [place] [address] 86531- 2824 22 Nov, 2015 [facility] [id number] [place] [address] 78582- 2956 16 Nov, 2015 [facility] [id number] [place] [address] 95551- 2704 09 Nov, 2015 [facility] [id number] [place] [address] 47656- 8658 Sep, [facility] [address] 85679- 5791 Aug, Low back pain M54.5 ; Anxiety F41.9 ; Primary insomnia F51.01 and Chronic prescription opiate use Z79.899 [facility] [id number] [place] [address] 92859- 3599 Jul, [facility] [address] [id number] [place] [address]- 1514 Jul, [facility] [address] [id number] [place] [address]- 6659 Jul, [facility] [address] [facility] [id number] [place] [address]- 2728 Jul, [facility] [address] [facility] [id number] [place] [address]- 1145 Jul, [facility] [address] [id number] [place] [address]- 1926 June, [facility] [address] [id number] [place] [address]- 7731 June, [facility] [address] [facility] [id number] [place] [address]- 0513 June, [facility] [id number], [place] [address]- 1144 June, [facility] [id number], [place] [address]- 5035 May, Preoperative cardiovascular examination Z01.810 [facility] [address] [facility] [id number], [place] [address]- 5520 May, [facility] [id number], [place] [address]- 1938 Apr, [facility] [address] [facility] [id number], [place] [address]- 6848 Apr, Osteoarthritis of right knee M17.9 [facility] [id number], [place] [address]- 3708 30 May, 2015 [facility] [address] [facility] [id number], [place] [address]- 6254 16 May, 2015 [facility] [address] [facility] [id number], [place] [address]- 6342 Apr, [facility] [id number] [place] [address] 81042- 7145 Apr, [facility] [address] 08410- 2971 Apr, History of excessive cerumen Z78.9 ; Obstructive sleep apnea syndrome G47.33 ; History of diverticulitis Z87.19 and Nephrolithiasis N20.0 [facility] [id number] [place] [address] 68784- 4354 Apr, [facility] [id number] [place] [address] 42596 -8444 Apr, Abdominal pain R10.9 [facility] [id number] [place] [address] 56095- 3101 10 Apr, 2015 [facility] [address] 61172- 2452 Apr, Osteoarthritis of right knee M17.9 [facility] [id number] [place] [address] 16904- 4304 Mar, [facility] [address] 30691- 1995 Mar, [facility] [id number] [place] [address] 09821- 4578 14 Mar, 2015 [facility] [id number] [place] [address] 50211- 1294 Mar, [facility] [id number] [place] [address] 43830 -5139 Mar, Pyelonephritis N12 ; Left-sided thoracic back pain M54.6 ; Hematuria, unspecified R31.9 and Kidney stone N20.0 [facility] [id number] [place] [address] 25685- 7144 12 Mar, 2015 History of weight loss surgery Z98.84 [facility] [id number] [place] [address] 90070- 6254 Mar, 2016 History of weight loss surgery Z98.84 and Hyperlipidemia, unspecified E78.5 [facility] [id number] [place] [address] 00892- 9492 Mar, 2016 Low back pain M54.5 ; Chronic prescription opiate use Z79.899 ; Hyperlipidemia, unspecified E78.5 ; Spasm of back muscles M62.830 and History of weight loss surgery Z98.84 [facility] [id number] [place] [address] 55201- 1806 Jan, [facility] [id number] [place] [address] 97009- 1922 Jan, [facility] [id number] [place] [address] 89952- 1556 Jan, [facility] [id number] [place] [address] 23241- 4993 Dec, [facility] [id number] [place] [address] 88837- 0274 Dec, [facility] [id number] [place] [address] 58798- 6440 Dec, [facility] [id number] [place] [address] 27676- 2999 Nov, [facility] [id number] [place] [address] 27841- 5765 Nov, Obstructive sleep apnea syndrome G47.33 and Pharyngoesophageal dysphagia R13.14 [facility] [id number] [place] [address] 70952- 5157 Nov, [facility] [id number] [place] [address] 17989- 0661 Nov, [facility] [id number] [place] [address] 60493- 4661 Nov, [facility] [id number] [place] [address] [id number] Oct, Dental examination V72.2 [facility] [id number] [place] [address] 47370- 7405 Oct, [facility] [id number] [place] [address] 509619- 4263 Oct, [facility] [id number] [place] [address] 40290- 9910 Oct, [facility] [id number] [place] [address] 652466- 8929 Oct, [facility] [id number] [place] [address] 93940- 1408 Oct, BPH (benign prostatic hyperplasia) 600.00 and Urinary frequency 788.41 [facility] [id number] [place] [address] 49323- 8509 Oct, [facility] [id number] [place] [address] 88290- 7822 Oct, [facility] [id number] [place] [address] 94772- 2716 Oct, [facility] [id number] [place] [address] [id number]- 4639 Sep, Cerumen impaction 380.4 ; Cerumen debris on tympanic membrane 380.4 ; Psoriasis 696.1 and MICKY (secretory otitis media) 381.4 [facility] [address] [place] [address] [id number] Sep, Dental examination V72.2 [facility] [address] [place] [address] 733801- 8536 Sep, Fatigue 780.79 ; Irritable bowel syndrome 564.1 ; Overweight 278.02 ; Poor sleep V69.4 ; Shaking spells 781.0 and Broken tooth 873.63 [facility] [id number] [place] [id number] Sep, [facility] [address] [id number] [place] [address] Sep, [facility] [address] [facility] [id number] [place] [address] Aug, [facility] [address] [facility] [id number] [place] [address] Jul, [facility] [id number] [address] Jul, [facility] [address] [id number] [place] [address] Jul, [facility] [id number] [address] Jul, [facility] [id number] [address] June, Arthritis of knee, right 716.96 [facility] [address] [id number] [place] [address] June, [facility] [address] [id number] [address] June, Elevated blood pressure reading without diagnosis of hypertension 796.2 [facility] [address] [id number] [place] [address] June, [facility] [address] [id number] [place] [address] June, [facility] [address] [id number] [address] June, [facility] [address] [id number] [address] June, [facility] [address] [facility] [id number] [place] [address]- [address] May, [facility] [address] [id number] [place] [address] May, [facility] [place] [facility] [address] [id number] [place] [address]- [address] Apr, [facility] [place] [facility] [address] [id number] [place] [address]- [address] Apr, [facility] [place] [facility] [address] [id number] [place] [address]- [address] Apr, [facility] [place] [facility] [address] [id number] [place] [address]- [address] Apr, [facility] [place] [facility] [address] [id number] [place] [address]- [address] Apr, [facility] [place] [facility] [address] [id number] [place] [address]- [address] Apr, [facility] [place] [facility] [address] [id number] [place] [address]- [address] Apr, [facility] [place] [facility] [address] [id number] [place] [address]- [address] Apr, [facility] [place] [facility] [address] [id number] [place] [address]- [address]147 Apr, [facility] [place] [facility] [address] [id number] [place] [address]- [address] Apr, [facility] [place] [facility] [address] [id number] [place] [address]- [address] Apr, [facility] [place] [facility] [address] [id number] [place] [address]- [address]164 Apr, [facility] [place] [facility] [address] [id number] [place] [address]- [address]13 Apr, [facility] [place] [facility] [address] [id number] [place] [address]- [address] Apr, [facility] [place] [facility] [address] [id number] [place] [address]- [address] Apr, [facility] [place] [facility] [address] [id number] [place] [address]- [address] 23 Apr, 2014 [facility] [place] [facility] [address] [id number] [place] [address]- [address] 20 Apr, 2014 [facility] [place] [facility] [address] [facility] [id number] [place] [address]- [address] 20 Apr, 2014 [facility] [place] [facility] [address] [facility] [id number] [place] [address]- [address] 18 Apr, 2014 [facility] [place] [facility] [address] [facility] [id number] [place] [address] 9[address] 18 Apr, 2014 [facility] [place] [facility] [address] [facility] [id number] [place] [address] 9236 13 Apr, 2014 [facility] [place] [facility] [address] [id number] [address] 4[address] 13 Apr, 2014 [facility] [place] [facility] [id number] [address] 0729 13 Apr, 2014 [facility] [place] [facility] [address] [facility] [id number] [place] [address]- 2701 13 Apr, 2014 [facility] [place] [facility] [id number] [address] 2539 12 Apr, 2014 [facility] [place] [facility] [address] [id number] [address] 12 Apr, 2014 [facility] [place] [facility] [address] [id number] [address] 7801 Apr, 2014 [facility] [place] [facility] [address] [facility] [id number] [place] [address]- 3669 Apr, 2014 [facility] [place] [facility] [address] [facility] [id number] [place] [address]- 5239 05 Apr, 2014 [facility] [place] [facility] [address] [facility] [id number], [place] [address] 2966 05 Apr, 2014 [facility] [place] [facility] [id number], [place] [address] 2546 Apr, [facility] [place] [facility] [address] [id number] [place] [address]- 8650 Apr, [facility] [place] [facility] [address] [id number] [place] [address]- 3612 Apr, [facility] [place] [facility] [address] [facility] [id number] [place] [address]- 7549 Mar, [facility] [place] [facility] [address] [id number] [place] [address]- 5554 Mar, [facility] [place] [facility] [address] [id number] [place] [address]- 2885 Mar, [facility] [place] [facility] [address] [id number] [place] [address]- 9146 Mar, [facility] [place] [facility] [address] [facility] [id number] [place] [address]- 6648 Mar, [facility] [place] [facility] [address] [id number] [place] [address]- 4898 Mar, [facility] [place] [facility] [address] [facility] [id number] [place] [address]- 2023 Mar, [facility] [place] [facility] [address] [facility] [id number] [place] [address]- 3152 Mar, [facility] [place] [facility] [address] [id number] [place] [address]- 7481 Mar, [facility] [place] [facility] [address] [id number] [place] [address]- 8493 Mar, [facility] [place] [facility] [address] [id number] [place] [address]- 5045 Jan, [facility] [place] [facility] [address] [id number] [place] [address]- 4716 Jan, [facility] [place] [facility] [address] [facility] [id number] [place] [address]- 5682 Jan, [facility] [place] [facility] [address] [id number] [place] 9168 Jan, [facility] [place] [facility] [address] [id number] [place] [address]- 7837 Jan, [facility] [place] [facility] [address] [id number] [place] [address]- 0554 Jan, [facility] [place] [facility] [address] [id number] [place] [address]- 4576 Jan, [facility] [place] [facility] [address] [id number] [place] [address]- 6891 Jan, [facility] [place] [facility] [address] [id number] [place] [address]- 0960 Jan, [facility] [place] [facility] [address] [id number] [place] [address]- 1662 Jan, [facility] [place] [facility] [address] [id number] [place] [address]- 0842 Jan, [facility] [place] [facility] [address] [id number] [place] [address]- 6080 Jan, [facility] [place] [facility] [address] [id number] [place] [address]- 6393 Dec, [facility] [place] [facility] [address] [id number] [place] [address]- 0086 Dec, [facility] [place] [facility] [address] [id number] [place] [address]- 3305 Dec, [facility] [place] [facility] [address] [id number] [place] [address]- 5636 Dec, [facility] [place] [facility] [address] [id number] [place] [address]- 1865 Dec, [facility] [place] [facility] [address] [id number] [place] [address]- 1977 Dec, [facility] [place] [facility] [address] [id number] [place] [address]- 1406 Dec, [facility] [place] [facility] [address] [id number] [place] [address]- 6648 Dec, [facility] [place] [facility] [address] [id number] [place] [address]- 1586 Dec, [facility] [place] [facility] [address] [id number] [place] [address]118 Dec, [facility] [place] [facility] [address] [id number] [place] [address]- 0854 Nov, [facility] [place] [facility] [address] [id number] [place] [address]- 5517 Nov, [facility] [place] [facility] [address] [id number] [place] [address]- 2102 Nov, [facility] [place] [facility] [address] [id number] [place] [address]- 4288 Nov, [facility] [place] [facility] [address] [id number], [place] [address]- 5099 Nov, [facility] [place] [facility] [address] [id number] [place] [address]- 0080 Nov, [facility] [place] [facility] [address] [id number], [place] [address]- 9206 Nov, [facility] [place] [facility] [address] [id number], [place] [address]- 6208 Nov, [facility] [place] [facility] [address] [id number], [place] [address]- 0018 Nov, [facility] [place] [facility] [address] [id number] [place] [address]- 9161 Nov, [facility] [place] [facility] [address] [id number], [place] [address]- 7309 Nov, [facility] [place] [facility] [address] [id number], [place] [address]- 9646 Nov, [facility] [place] [facility] [address] [id number] [place] [address]- 2193 14 Nov, 2013 [facility] [place] [facility] [address] [id number] [place] [address]- 8119 14 Nov, 2013 [facility] [place] [facility] [address] [id number] [place] [address]- 6668 10 Nov, 2013 [facility] [place] [facility] [address] [id number] [place] [address]- 5206 10 Nov, 2013 [facility] [place] [facility] [address] [id number] [place] [address]- 1080 08 Nov, 2013 [facility] [place] [facility] [address] [id number] [place] [address]- 2438 08 Nov, 2013 [facility] [place] [facility] [address] [id number] [place] [address]- 7504 Nov, [facility] [place] [facility] [address] [id number] [place] [address]- 0631 Nov, [facility] [place] [facility] [address] [id number] [place] [address]- 7746 26 Oct, 2013 [facility] [place] [facility] [address] [id number] [place] [address]- 0663 26 Oct, 2013 [facility] [place] [facility] [address] [id number] [place] [address]- 2851 19 Oct, 2013 [facility] [place] [facility] [address] [id number] [place] [address]- 2548 19 Oct, 2013 [facility] [place] [facility] [address] [id number] [place] [address]- 2548 12 Oct, 2013 [facility] [place] [facility] [address] [id number] [place] [address] 2540 12 Oct, 2013 [facility] [place] [facility] [address] [id number] [place] [address]- 2542 10 Oct, 2013 [facility] [place] [facility] [address] [id number] [place] [address]- 2545 10 Oct, 2013 [facility] [place] [facility] [address] [id number] [place] [address]- 3201 Oct, [facility] [place] [facility] [address] [id number] [place] [address]- 9253 Oct, [facility] [place] [facility] [address] [id number] [place] [address]- 7854 Sep, [facility] [place] [facility] [address] [id number] [place] [address]- 6222 Sep, [facility] [place] [facility] [address] [id number] [place] [address]- 8079 Sep, [facility] [place] [facility] [address] [id number] [place] [address]- 7783 Sep, [facility] [place] [facility] [address] [id number] [place] [address]- 5002 Sep, [facility] [place] [facility] [address] [id number] [place] [address]- 5277 Sep, [facility] [place] [facility] [address] [id number] [place] [address]- 6036 Sep, [facility] [place] [facility] [address] [id number] [place] [address]- 8588 Sep, [facility] [place] [facility] [address] [id number] [place] [address]- 1966 Sep, [facility] [place] [facility] [address] [id number] [place] [address]- 2106 Sep, [facility] [place] [facility] [address] [id number] [place] [address]- 2338 Sep, [facility] [place] [facility] [address] [id number] [place] [address]- 3098 Sep, [facility] [place] [facility] [address] [id number] [place] [address]- 1747 Sep, [facility] [place] [facility] [address] [id number] [place] [address]- 8591 Sep, [facility] [place] [facility] [address] [id number] [place] [address]- 1659 Sep, [facility] [place] [facility] [address] [id number] [place] [address]- 0921 Sep, [facility] [place] [facility] [address] [id number] [place] [address]- 2480 Sep, [facility] [place] [facility] [address] [id number] [place] [address]- 6598 Sep, [facility] [place] [facility] [address] [id number] [place] [address]- 1936 Sep, [facility] [place] [facility] [address] [id number] [place] [address]- 8062 Sep, [facility] [place] [facility] [address] [id number] [place] [address]- 6770 Sep, [facility] [place] [facility] [address] [id number] [place] [address]- 2622 Sep, [facility] [place] [facility] [address] [id number] [place] [address]- 7940 Sep, [facility] [place] [facility] [address] [id number] [place] [address]- 2152 Sep, [facility] [place] [facility] [address] [id number] [place] [address]- 4765 Sep, [facility] [place] [facility] [address] [id number] [place] [address]- 3666 Aug, [facility] [place] [facility] [address] [id number] [place] [address]- 4121 Aug, [facility] [place] [facility] [address] [id number] [place] [address]- 6844 Aug, [facility] [place] [facility] [address] [id number] [place] [address]- 6042 Aug, [facility] [place] [facility] [address] [id number] [place] [address]- 9465 Aug, 2013 [facility] [place] [facility] [address] [id number] [place] [address]- 4135 Aug, [facility] [place] [facility] [address] [id number] [place] [address]- 8436 Aug, 2013 [facility] [place] [facility] [address] [id number] [place] [address]- 1202 Aug, 2013 [facility] [place] [facility] [address] [id number] [place] [address]- 9218 Aug, 2013 [facility] [place] [facility] [address] [id number] [place] [address]- 8493 Aug, [facility] [place] [facility] [address] [id number] [place] [address]- 0338 Aug, [facility] [place] [facility] [address] [id number] [place] [address]- 3919 Aug, [facility] [place] [facility] [address] [id number] [place] [address]- 6046 Aug, [facility] [place] [facility] [address] [id number] [place] [address]- 7139 Jul, [facility] [place] [facility] [address] [id number] [place] [address]- 3198 Jul, [facility] [place] [facility] [address] [id number] [place] [address]- 8920 Jul, [facility] [place] [facility] [address] [id number] [place] [address]- 4432 Jul, [facility] [place] [facility] [address] [id number] [place] [address]- 4214 Jul, [facility] [place] [facility] [address] [id number] [place] [address]- 6308 Jul, [facility] [place] [facility] [address] [id number] [place] [address]- 1421 Jul, [facility] [place] [facility] [address] [id number] [place] [address]- 7229 June, [facility] [place] [facility] [address] [id number] [place] [address]- 1151 June, [facility] [place] [facility] [address] [id number] [place] [address]- 0201 June, [facility] [place] [facility] [address] [id number] [place] [address]- 8469 June, [facility] [place] [facility] [address] [id number] [place] [address]- 0931 May, [facility] [place] [facility] [address] [id number] [place] [address]- 7048 May, [facility] [place] [facility] [address] [id number] [place] [address]- 7327 May, [facility] [place] [facility] [address] [id number] [place] [address]- 5737 May, [facility] [place] [facility] [address] [id number] [place] [address]- 9650 May, [facility] [place] [facility] [address] [id number] [place] [address]- 7518 May, [facility] [place] [facility] [address] [id number] [place] [address]- 2286 May, [facility] [place] [facility] [address] [id number], [place] [address]- 0468 May, [facility] [place] [facility] [address] [id number] [place] [address]- 0311 May, [facility] [place] [facility] [address] [id number] [place] [address]- 6860 May, [facility] [place] [facility] [address] [id number] [place] [address]- 5197 Apr, [facility] [place] [facility] [address] [id number], [place] [address]- 9659 Apr, [facility] [place] [facility] [address] [id number] [place] [address]- 1006 Apr, [facility] [place] [facility] [address] [id number] [place] [address]- 4911 Apr, [facility] [place] [facility] [address] [id number] [place] [address]- 8256 Apr, [facility] [place] [facility] [address] [id number] [place] [address]- 3786 Apr, [facility] [place] [facility] [address] [id number] [place] [address]- 9578 Apr, [facility] [place] [facility] [address] [id number] [place] [address]- 5486 Apr, [facility] [place] [facility] [address] [facility] [id number] [place] [address]- 9015 Apr, [facility] [place] [facility] [address] [facility] [id number] [place] [address]- 5431 Apr, [facility] [place] [facility] [address] [facility] [id number] [place] [address]- 5100 Mar, [facility] [place] [facility] [address] [facility] [id number] [place] [address]- 2485 Mar, [facility] [place] [facility] [address] [id number] [place] [address]- 1478 Mar, [facility] [place] [facility] [address] [id number] [place] [address]- 9768 Mar, [facility] [place] [facility] [address] [id number] [place] [address]- 0286 Mar, [facility] [place] [facility] [address] [facility] [id number] [place] [address]- 1756 Mar, [facility] [place] [facility] [address] [id number] [place] [address]- 8568 Jan, [facility] [place] [facility] [address] [id number] [place] 6410 Jan, [facility] [place] [facility] [address] [id number] [place] [address]- 9909 Jan, [facility] [place] [facility] [address] [id number] [place] 5489 Jan, [facility] [place] [facility] [address] [id number] [place] [address]- 0758 Jan, [facility] [address] [id number] [place] 6182 Jan, [facility] [place] [facility] [address] [id number] [place] [address]- 0048 Jan, [facility] [address] [id number] [place] [address]- 8288 Jan, [facility] [address] [id number] [place] [address]- 1913 Jan, [facility] [place] [facility] [address] [id number] [place] [address]- 8830 Dec, [facility] [place] [facility] [address] [id number], [place] [address]- 5698 Dec, [facility] [place] [facility] [address] [id number], [place] [address]- 3107 Dec, [facility] [place] [facility] [address] [id number], [place] [address]- 5376 Dec, [facility] [place] [facility] [address] [id number], [place] [address]- 2129 Dec, [facility] [place] [facility] [address] [id number], [place] [address]- 9279 Dec, [facility] [place] [facility] [address] [id number][place] 3482 15 Dec, 2012 [facility] [place] [facility] [address] [id number], [place] [address]- 7514 Dec, [facility] [place] [facility] [address] [id number] [place] [address]- 8961 Dec, [facility] [place] [facility] [address] [id number] [place] [address]- 5047 Dec, [facility] [place] [facility] [address] [id number] [place] [address]- 7015 Dec, [facility] [place] [facility] [address] [id number] [place] [address]- 9444 Nov, [facility] [place] [facility] [address] [id number] [place] 4606 Nov, [facility] [place] [facility] [address] [id number] [place] [address]- 4148 Nov, [facility] [place] [facility] [address] [id number] [place] [address]- 2446 Nov, [facility] [place] [facility] [address] [id number] [place] [address]- 7062 Nov, [facility] [place] [facility] [address] [id number] [place] [address]- 2900 Oct, [facility] [place] [facility] [address] [id number] [place] [address]- 0930 Oct, [facility] [place] [facility] [address] [id number] [place] [address]- 6881 Sep, [facility] [place] [facility] [address] [id number] [place] [address]- 2847 Aug, [facility] [place] [facility] [address] [id number] [place] [address]- 5907 Aug, [facility] [place] [facility] [address] [id number] [place] [address]- 6068 Aug, [facility] [place] [facility] [address] [id number] [place] [address]- 2510 Aug, [facility] [place] [facility] [address] [id number] [place] [address]- 2083 Jul, [facility] [address] [id number] [place] [address] Jul[facility] [address] [id number] [place] [address] June, [facility] [address] [id number] [place] [address] June, [facility] [address] [id number] [place] [address] June, [facility] [address] [id number] [place] [address] May, [facility] [address] [id number] [place] [address] May, [facility] [address] [id number] [place] [address] May, [facility] [address] [id number] [place] [address] Apr, [facility] [address] [id number] [place] [address] 18 Apr, 2012 [facility] [address] [id number] [place] [address] 15 Apr, 2012 [facility] [facility] [address] [id number] [place] [address] 14 Apr, 2012 [facility] [address] [id number] [place] [address] Apr, [facility] [place] [facility] [address] [id number] [place] [address]- [address] Apr, [facility] [place] [facility] [address] [id number] [place] [address]- [address] Apr, [facility] [place] [facility] [address] [id number] [place] [address] Apr, [facility] [address] [id number] [place] [address] Apr, [facility] [address] [id number] [place] [address]- [address] Apr, [facility] [address] [id number] [place] [address]- [address] Apr, [facility] [address] [id number] [place] [address]- [address] Apr, [facility] [address] [id number] [place] [address]- [address] Apr, [facility] [address] [id number] [place] [address] Mar, [facility] [address] [id number] [place] [address] Mar, [facility] [address] [id number] [place] [address] Mar, [facility] [address] [id number] [place] [address] Mar, [facility] [address] [id number] [place] [address] Mar, [facility] [address] [id number] [place] [address] Jan, [facility] [place] [facility] [address] [id number] [place] [address] 1614 Jan, [facility] [place] [facility] [address] [id number] [place] [address] Jan, [facility] [place] [facility] [address] [id number] [place] [address] Jan, [facility] [place] [facility] [address] [id number] [place] [address]- [address]206 14 Jan, 2012 [facility] [place] [facility] [address] [id number] [place] [address]- [address] 13 Jan, 2012 [facility] [place] [facility] [address] [id number] [place] [address]- 1016 13 Jan, 2012 [facility] [place] [facility] [address] [id number] [place] [address]- [address]26 11 Jan, 2012 [facility] [place] [facility] [address] [id number] [place] [address]- [address] 06 Jan, 2012 [facility] [place] [facility] [address] [id number] [place] [address]- [address] 06 Jan, 2012 [facility] [place] [facility] [address] [id number] [place] [address]- [address] 04 Jan, 2012 [facility] [place] [facility] [address] [id number] [place] [address]- [address] 04 Jan, 2012 [facility] [place] [facility] [address] [id number] [place] [address]- [address]247 04 Jan, 2012 [facility] [place] [facility] [address] [id number] [place] [address]- [address] 04 Jan, 2012 [facility] [place] [facility] [address] [id number] [place] [address]- [address] Dec, [facility] [place] [facility] [address] [id number] [place] [address]- [address] 26 Jan, 2012 [facility] [place] [facility] [address] [id number] [place] [address]- 2495 19 Jan, 2012 [facility] [place] [facility] [address] [id number] [place] [address]- 7218 19 Jan, 2012 [facility] [place] [facility] [address] [id number] [place] [address]- 5416 15 Jan, 2012 [facility] [place] [facility] [address] [id number] [place] [address]- 8436 15 Jan, 2012 [facility] [place] [facility] [address] [id number] [place] [address]- 8609 14 Jan, 2012 [facility] [place] [facility] [address] [id number] [place] [address]- 9849 14 Jan, 2012 [facility] [place] [facility] [address] [id number] [place] [address]- [address] 14 Jan, 2012 [facility] [place] [facility] [address] [id number] [place] [address]- 8924 14 Jan, 2012 [facility] [place] [facility] [address] [id number] [place] [address]- [address]105 07 Jan, 2012 [facility] [place] [facility] [address] [id number] [place] [address]- [address]35 07 Jan, 2012 [facility] [place] [facility] [address] [id number] [place] [address]- 2241 16 Dec, 2011 [facility] [place] [facility] [address] [id number] [place] [address]- 4681 16 Dec, 2011 [facility] [place] [facility] [address] [id number] [place] [address]- 0884 13 Nov, 2011 [facility] [place] [facility] [address] [id number] [place] [address]- 9556 13 Nov, 2011 [facility] [place] [facility] [address] [id number] [place] [address]- 7966 13 Nov, 2011 [facility] [place] [facility] [address] [id number] [place] [address]- 9032 12 Nov, 2011 [facility] [place] [facility] [address] [id number], [place] [address] 30 Oct, 2011 [facility] [place] [facility] [address] [id number] [place] [address]- 0741 Sep, [facility] [place] [facility] [address] [id number] [place] [address]- 3148 23 Aug, 2011 [facility] [place] [facility] [address] [id number] [place] [address]- 7810 13 Aug, 2011 [facility] [place] [facility] [address] [id number] [place] [address]- 2810 Aug, [facility] [address] [id number] [place] [address]- 0583 Aug, [facility] [place] [facility] [address] [id number] [place] [address]- 0086 June, [facility] [place] [facility] [address] [id number] [place] [address]46 June, [facility] [place] [facility] [address] [id number] [place] [address]- 6535 May, [facility] [place] [facility] [address] [id number] [place] [address] Apr, [facility] [place] [facility] [address] [id number] [place] [address] Apr, [facility] [place] [facility] [address] [id number] [place] [address] Apr, [facility] [place] [facility] [address] [id number] [place] [address] Apr, [facility] [place] [facility] [address] [id number] [place] [address] Apr, [facility] [place] [facility] [address] [id number] [place] [address] Apr, [facility] [place] [facility] [address] [id number] [place] [address] Mar, [facility] [place] [facility] [address] [id number] [place] [address] Mar, [facility] [place] [facility] [address] [id number] [place] [address] Mar, [facility] [place] [facility] [address] [id number] [place] [address] Jan, [facility] [place] [facility] [address] [id number] [place] [address] Jan, [facility] [place] [facility] [address] [id number] [place] [address] Jan, [facility] [place] [facility] [address] [id number] [place] [address] Jan, [facility] [place] [facility] [address] [id number] [place] [address] Jan, [facility] [place] [facility] [address] [id number] [place] [address] Jan, [facility] [place] [facility] [address] [id number] [place] [address] Jan, [facility] [place] [facility] [address] [id number] [place] [address] Dec, [facility] [place] [facility] [address] [id number] [place] [address] Dec, [facility] [place] [facility] [address] [id number] [place] [address] Nov, [facility] [place] [facility] [address] [id number] [place] [address] Nov, [facility] [place] [facility] [address] [id number] [place] [address]- [address] Nov, [facility] [place] [facility] [address] [id number] [place] [address] Nov, [facility] [place] [facility] [address] [id number] [place] [address] Oct, [facility] [place] [facility] [address] [id number] [place] [address] Sep, [facility] [place] [facility] [address] [id number] [place] [address] Mar, [facility] [place] [facility] [address] [id number] [place] [address]- [address] Jan, [facility] [place] [facility] [address] [id number] [place] [address]- [address] 09 Dec, 2009 [facility] [place] [facility] [address] [id number] [place] [address]- [address] 06 Dec, 2009 [facility] [place] [facility] [address] [id number] [place] [address]- [address] 04 Dec, 2009 [facility] [place] [facility] [address] [id number] [place] [address] Dec, [facility] [place] [facility] [address] [id number] [place] [address] 26 Nov, 2009 [facility] [place] [facility] [address] [id number] [place] [address]- [address] 15 Nov, 2009 [facility] [place] [facility] [address] [id number] [place] [address]- [address] 14 Nov, 2009 [facility] [place] [facility] [address] [id number] [place] [address]- [address] 14 Nov, 2009 [facility] [place] [facility] [address] [id number] [place] [address] Oct, [facility] [place] [facility] [address] [id number] [place] [address] Jul, [facility] [place] [facility] [address] [id number] [place] [address] June, [facility] [place] [facility] [address] [id number], [place] [address] June, [facility] [place] [facility] [address] [id number], [place] [address] Apr, [facility] [place] [facility] [address] [id number] [place] [address] Mar, [facility] [place] [facility] [address] [id number] [place] [address]- [address] Jan, [facility] [place] [facility] [address] [id number] [place] [address]- 38[address] Jan, [facility] [place] [facility] [address] [id number], [place] [address] Dec, [facility] [address] [id number], [place] [address] Dec, [facility] [id number], [place] [address] Dec, [facility] [id number], [place] [address] Dec, [facility] [id number], [place] [address] Nov, [facility] [id number], [place] [address] Jul, [facility] [id number], [place] [address] June, IMMUNIZATIONS No Known Immunizations SOCIAL HISTORY [...] CPAP Medical History oxygen dependent at [facility] Medical History colonic polyps Medical [...]
--- OUTSIDE RECORDS SUMMARY | 2018-02-26 19:06 | XMS REPORT ---
Author Author GRAHAM CHRIS [facility] Address [address] [place] [address] Care Team Providers Care Public Message Service Supervisor Name Role Phone GRAHAMELLIOTT HANNAHANY Unavailable PROBLEMS Type Condition ICD9-CM Code MIY14-ZW Code Onset Dates Condition Status SNOMED Code Problem Pulmonary asbestosis J61 Active 99987358 Problem Left ventricular diastolic dysfunction I51.9 Active 068660011 Problem Chronic gout, unspecified cause, unspecified site M1A.9XX0 Active 21194229 Problem Renal cyst, left N28.1 Active 02993275 Problem History of weight loss surgery Z98.84 Active 103110857 Problem Nocturnal hypoxia G47.34 Active 345428420 Problem Obstructive sleep apnea syndrome G47.33 Active 55934643 Problem History of diverticulitis Z87.19 Active 089991421276793 Problem Allergic rhinitis, unspecified allergic rhinitis type J30.9 Active 56346013 Problem Erectile dysfunction due to diseases classified elsewhere N52.1 Active 415030541 Problem Acute right-sided low back pain with right-sided sciatica M54.41 Active 912705026 Problem Psoriasis L40.9 Active 6995692 Problem Essential hypertension I10 Active 21475112 Problem Nephrolithiasis N20.0 Active 64328895 Problem Chronic prescription opiate use Z79.899 Active 769139455 Problem 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 Active 22096291 Problem Benign prostatic hyperplasia, presence of lower urinary tract symptoms unspecified, unspecified morphology N40.0 Active 542664545 Problem Moderate episode of recurrent major depressive disorder F33.1 Active 791171495 Problem Age-related osteoporosis without current pathological fracture M81.0 Active 67147916 Problem Low back pain M54.5 Active 752613604 Problem Anxiety F41.9 Active 64210261 Problem Urge incontinence N39.41 Active 429463189 Problem Hyperlipidemia, unspecified E78.5 Active 71468493 Problem Esophageal stricture K22.2 Active 01836387 Problem Cervicalgia M54.2 Active 5882320828016 Problem Primary insomnia F51.01 Active 192207057 ALLERGIES No Information ENCOUNTERS Encounter Location Date Diagnosis [facility] [id number] [place] [address] 30397- 4059 Aug, [facility] [id number] [place] [address] 30421- 2541 Aug, [facility] [address] 09458- 3822 Jul, [facility] [id number] [place] [address] 37337- 8651 Jul, Anxiety F41.9 [facility] [address] 56287- 4347 June, Anxiety F41.9 [facility] [address] 93338- 9891 June, [facility] [id number] [place] [address] 47895- 7304 June, Low back pain M54.5 ; Chronic prescription opiate use Z79.899 ; Candidal intertrigo B37.2 ; Urge incontinence N39.41 ; Essential hypertension I10 ; Moderate episode of recurrent major depressive disorder F33.1 ; Age-related osteoporosis without current pathological fracture M81.0 and BMI 45.0-49.9, adult Z68.42 [facility] [id number] [place] [address] 12116- 6409 June, [facility] [id number] [place] [address] 67868- 2925 May, Anxiety F41.9 [facility] [id number] [place] [address] 61111- 8807 May, [facility] [id number] [place] [address] 12472- 4522 May, [facility] [id number] [place] [address] 75353- 8292 Apr, Anxiety F41.9 [facility] [id number] [address]- 0102 Apr, [facility] [id number] [place] [address] 80814- 1290 Apr, Low back pain M54.5 [facility] [id number] [place] [address] 93927- 1244 Apr, [facility] [id number] [place] [address] 39236- 2275 Apr, [facility] [id number] [place] [address] 30881- 2947 Apr, Anxiety F41.9 [facility] [id number] [place] [address] 98522- 4203 Apr, Right groin pain R10.31 [facility] [id number] [place] [address] 49271- 6302 Mar, [facility] [id number] [place] [address] 83641- 6280 Mar, [facility] [id number] [place] [address] 54326- 8326 Mar, Anxiety F41.9 [facility] [id number] [place] [address] 12012- 1999 Mar, Low back pain M54.5 [facility] [id number] [place] [address] 64379- 2766 Mar, Right groin pain R10.31 ; Low back pain M54.5 and BMI 45.0- 49.9, adult Z68.42 [facility] [address] [place] [address] 67714- 7299 Mar, [facility] [id number] [place] [address] 77333- 5121 Mar, [facility] [id number] [address]- 2774 Mar, [facility] [id number] [place] [address] 05525 -5105 Mar, [facility] [id number] [place] [address] 47447 -6176 Mar, Cough R05 ; Pneumonia of right lower lobe due to infectious organism J18.1 and Abnormal chest x-ray R93.8 [facility] [id number] [place] [address] 36346- 3177 Mar, [place] [place] [address] 12368- 0196 Mar, [place] [place] [id number] [place] [address] 95097- 1581 Jan, Anxiety F41.9 [facility] [address] 81183- 3852 Jan, [place] [id number] [place] [address] 47179- 9666 Jan, Moderate episode of recurrent major depressive disorder F33.1 [facility] [id number] [place] [address] 13983- 5169 Jan, Subacromial bursitis of right shoulder joint M75.51 ; Shortness of breath on exertion R06.02 and BMI 45.0-49.9, adult Z68.42 [place] [place] [id number] [place] [address] 92301- 0751 Dec, Anxiety F41.9 [place] [id number] [place] [address] 29148- 8160 Dec, [place] [id number] [place] [address] 51976- 6017 Dec, Low back pain M54.5 [facility] [id number] [place] [address] 39922- 5089 Oct, Low back pain M54.5 [facility] [address] [address]- 9142 Sep, [facility] [id number] [place] [address] 02939- 0057 Sep, Erectile dysfunction due to diseases classified elsewhere N52.1 [facility] [id number] [place] [address] 96027- 9062 Sep, Erectile dysfunction due to diseases classified elsewhere N52.1 [facility] [id number] [place] [address] 33032- 5412 Sep, [facility] [id number] [place] [address] 86783- 8654 Sep, Erectile dysfunction due to diseases classified elsewhere N52.1 [facility] [id number] [place] [address] 24876- 0619 Sep, Low back pain M54.5 and Anxiety F41.9 [facility] [id number] [place] [address] 76040 -9672 Aug, Acute allergic rhinitis J30.9 [facility] [id number] [place] [address] 85208- 2728 Aug, [facility] [address] [place] [address] 17269- 7853 Aug, Anxiety F41.9 [facility] [id number] [place] [address] 64917- 3775 Jul, Low back pain M54.5 ; Chronic prescription opiate use Z79.899 and Essential hypertension I10 [facility] [id number] [place] [address] 86939- 4097 Jul, Anxiety F41.9 and Low back pain M54.5 [facility] [address] [place] [address] 73114- 9847 June, [facility] [id number] [place] [address] 73943- 7370 June, Anxiety F41.9 [facility] [id number] [place] [address] 95400- 4647 May, Low back pain M54.5 [facility] [id number] [place] [address] 62152- 0519 May, [facility] [id number] [place] [address] 57492- 7180 May, Anxiety F41.9 [facility] [id number] [place] [address] 23930- 3753 Apr, [facility] [id number] [place] [address] 07411- 8845 Apr, Low back pain M54.5 [facility] [id number] [place] [address] 78946- 1745 Apr, Moderate episode of recurrent major depressive disorder F33.1 [facility] [id number] [place] [address] 10609- 9701 Apr, Anxiety F41.9 [facility] [id number] [place] [address] 18477- 9845 Apr, Low back pain M54.5 [facility] [id number] [place] [address] 23583- 8021 15 Apr, 2016 Elevated alkaline phosphatase level R74.8 [facility] [address] [place] [address] 86803- 1211 10 Apr, 2016 Alkaline phosphatase elevation R74.8 [facility] [id number] [place] [address] 75429- 2036 06 Apr, 2016 Anxiety F41.9 [facility] [id number] [place] [address] 37723- 2840 03 Apr, 2016 Low back pain M54.5 [facility] [id number] [place] [address] 03514- 6265 03 Apr, 2017 History of weight loss surgery Z98.84 ; Encounter for hepatitis C screening test for low risk patient Z11.59 ; History of herpes genitalis Z86.19 ; Essential hypertension I10 ; Hyperlipidemia, unspecified E78.5 ; Exposure to STD Z20.2 and Benign prostatic hyperplasia, presence of lower urinary tract symptoms unspecified, unspecified morphology N40.0 [facility] [id number] [place] [address] 62390- 1440 02 Apr, 2016 [place] [id number] [place] [address] 50541- 4042 Mar, [place] [id number] [place] [address] 78213- 5897 Mar, [place] [id number] [place] [address] 73267- 8421 Mar, [place] [id number] [place] [address] 29877- 9272 Mar, Acute right-sided low back pain with right-sided sciatica M54.41 [place] [id number] [place] [address] 91821- 2511 Mar, Low back pain M54.5 [facility] [address] [place] [address] 16068 -7793 Mar, Muscle strain of chest wall, initial encounter S29.011A ; Muscle strain of right thigh, initial encounter S76.911A and Acute non- recurrent maxillary sinusitis J01.00 [facility] [address] [place] [address] 63391- 5786 Mar, Benign prostatic hyperplasia, presence of lower urinary tract symptoms unspecified, unspecified morphology N40.0 [facility] [address] [place] [address] 07328- 5227 Jan, Low back pain M54.5 [facility] [id number] [place] [address] 44785- 7532 13 Jan, 2016 Low back pain M54.5 ; Essential hypertension I10 ; Hyperlipidemia, unspecified E78.5 ; Anxiety F41.9 ; Moderate episode of recurrent major depressive disorder F33.1 ; Primary insomnia F51.01 ; Exposure to STD Z20.2 ; Encounter for hepatitis C screening test for low risk patient Z11.59 and History of herpes genitalis Z86.19 [facility] [address] 28145- 4225 17 Jan, 2016 [facility] [address] 91015- 7924 20 Dec, 2015 [place] [address] 51895- 1062 14 Dec, 2015 Anxiety F41.9 ; Cervicalgia M54.2 ; Moderate episode of recurrent major depressive disorder F33.1 and Encounter for immunization Z23 [facility] [address] 91108- 0179 23 Nov, 2015 [facility] [address] 23347- 8541 22 Nov, 2015 [facility] [address] 61663- 7804 16 Nov, 2015 [facility] [id number] [place] [address] 06954- 5678 09 Nov, 2015 [facility] [id number] [place] [address] 31077- 2099 Sep, [facility] [address] 41600- 2295 Aug, Low back pain M54.5 ; Anxiety F41.9 ; Primary insomnia F51.01 and Chronic prescription opiate use Z79.899 [facility] [id number] [place] [address] 79292- 1416 Jul, [facility] [id number] [place] [address] 17833- 9529 Jul, [facility] [address] [id number] [place] [address]- 5412 Jul, [facility] [address] [id number] [place] [address]- 2272 Jul, [facility] [address] [id number] [place] [address]- 7216 Jul, [facility] [address] [facility] [id number] [place] [address]- 9534 June, [facility] [address] [id number] [place] [address]- 4307 June, [facility] [address] [facility] [id number] [place] [address]- 5470 June, [facility] [address] [facility] [id number] [place] [address]- 6424 June, [facility] [id number] [place] [address] 1979 May, Preoperative cardiovascular examination Z01.810 [facility] [id number] [place] [address]- 6190 May, [facility] [address] [facility] [id number] [place] [address]- 9100 Apr, [facility] [address] [facility] [id number] [place] [address]- 1344 Apr, Osteoarthritis of right knee M17.9 [facility] [address] [facility] [id number] [place] [address]- 5636 30 May, 2015 [facility] [address] [facility] [id number] [place] [address]- 3099 16 May, 2015 [facility] [address] [facility] [id number] [place] [address]- 4673 Apr, [facility] [address] [facility] [id number] [place] [address]- 5215 Apr, [facility] [id number] [place] [address] 70019- 2370 08 May, 2015 History of excessive cerumen Z78.9 ; Obstructive sleep apnea syndrome G47.33 ; History of diverticulitis Z87.19 and Nephrolithiasis N20.0 [place] [id number] [place] [address] 62471- 3433 29 Apr, 2015 [facility] [address] 54122 -5140 Apr, Abdominal pain R10.9 [place] [address] 03344- 1782 Apr, [place] [address] 72477- 3684 04 Apr, 2015 Osteoarthritis of right knee M17.9 [place] [address] 93056- 9512 Mar, [facility] [id number] [place] [address] 39134- 3583 15 Mar, 2015 [place] [address] 16870- 5049 14 Mar, 2015 [place] [id number] [place] [address] 22134- 1098 Mar, [facility] [id number] [place] [address] 93553 -5022 Mar, Pyelonephritis N12 ; Left-sided thoracic back pain M54.6 ; Hematuria, unspecified R31.9 and Kidney stone N20.0 [place] [id number] [place] [address] 61388- 5554 12 Mar, 2015 History of weight loss surgery Z98.84 [place] [id number] [place] [address] 62453- 9793 07 Mar, 2015 History of weight loss surgery Z98.84 and Hyperlipidemia, unspecified E78.5 [place] [id number] [place] [address] 45913- 1298 Mar, Low back pain M54.5 ; Chronic prescription opiate use Z79.899 ; Hyperlipidemia, unspecified E78.5 ; Spasm of back muscles M62.830 and History of weight loss surgery Z98.84 [facility] [id number] [place] [address] 92963- 8789 Jan, [facility] [id number] [place] [address] 57101- 3302 Jan, [facility] [id number] [place] [address] 94961- 9985 Jan, [facility] [id number] [place] [address] 82540- 0074 Dec, [facility] [id number] [place] [address] 76529- 0144 Dec, [facility] [id number] [place] [address] 39930- 1944 Dec, [facility] [id number] [place] [address] 31774- 1863 Nov, [facility] [id number] [place] [address] 54700- 0196 Nov, Obstructive sleep apnea syndrome G47.33 and Pharyngoesophageal dysphagia R13.14 [facility] [id number] [place] [address] 27194- 2346 Nov, [facility] [id number] [place] [address] 50866- 2037 Nov, [facility] [address] 77368- 3488 Nov, [facility] [id number] [place] [address] [id number] Oct, 2014 Dental examination V72.2 [facility] [id number] [place] [address] 05797- 0320 Oct, [facility] [address] [place] [address] 12300- 6875 Oct, [facility] [id number] [place] [address] 98627- 9814 Oct, [facility] [id number] [place] [address] 32119- 6136 Oct, [facility] [address] 61311- 2605 Oct, BPH (benign prostatic hyperplasia) 600.00 and Urinary frequency 788.41 [facility] [address] 75039- 2457 Oct, [facility] [id number] [place] [address] 58890- 4954 Oct, [facility] [id number] [place] [address] 38038- 9057 Oct, [facility] [id number] [place] [address] 66200- 4613 Sep, Cerumen impaction 380.4 ; Cerumen debris on tympanic membrane 380.4 ; Psoriasis 696.1 and MICKY (secretory otitis media) 381.4 [facility] [address] [place] [address] [id number] Sep, Dental examination V72.2 [facility] [id number] [place] [address] 69475- 8668 Sep, Fatigue 780.79 ; Irritable bowel syndrome 564.1 ; Overweight 278.02 ; Poor sleep V69.4 ; Shaking spells 781.0 and Broken tooth 873.63 [facility] [id number] [place] [address] 38953- 8441 Sep, [facility] [id number] [place] [address] 86277- 4011 Sep, [facility] [id number] [place] [address]- 4031 Aug, [facility] [address] [place] [address]- 3045 Jul, [facility] [address] [facility] [id number] [place] [address]- 4230 Jul, [facility] [address] [place] [address] 33690- 8717 Jul, [facility] [address] [facility] [id number] [place] [address]- 8133 Jul, [facility] [address] [place] [address], [place] [address]- 2288 June, Arthritis of knee, right 716.96 [facility] [address] [place] [address]- 5883 June, [facility] [address] [address]- 7806 June, Elevated blood pressure reading without diagnosis of hypertension 796.2 [facility] [address] [place] [address]- 2007 June, [facility] [address] [address]- 4912 June, [facility] [id number] [address]- 2273 June, [facility] [id number] [address]- 8925 June, [facility] [id number] [address]- 8801 May, [facility] [id number] [place] [address]- 5480 May, [facility] [id number] 1834 Apr, [facility] [place] [facility] [address] [id number] [place] [address]- 8438 30 Apr, 2014 [facility] [place] [facility] [address] [id number] [place] [address]- 2019 Apr, [facility] [place] [facility] [address] [id number] [place] [address]- 0155 Apr, [facility] [place] [facility] [address] [id number] [place] [address]- 2897 Apr, [facility] [place] [facility] [address] [id number] [place] [address]- 8761 Apr, [facility] [place] [facility] [address] [id number] [place] [address]- 9790 Apr, [facility] [place] [facility] [address] [facility] [id number] [place] [address]- 4467 Apr, [facility] [place] [facility] [address] [id number] [place] [address]- 9250 Apr, [facility] [place] [facility] [address] [id number] [place] [address]- 8005 Apr, [facility] [place] [facility] [address] [id number] [place] [address]- 9594 Apr, [facility] [place] [facility] [address] [facility] [id number] [place] [address]- 3057 Apr, [facility] [place] [facility] [address] [id number] [address] Apr, 2014 [facility] [place] [facility] [address] [id number] [place] [address] Apr, 2014 [facility] [place] [facility] [address] [id number] [place] [address] Apr, 2014 [facility] [place] [facility] [address] [id number] [place] [address] Apr, 2014 [facility] [place] [facility] [address] [id number] [place] [address] 20 Apr, 2014 [facility] [place] [facility] [address] [id number] [place] [address] 20 Apr, 2014 [facility] [place] [facility] [address] [facility] [place] [id number] [place] [address] 18 Apr, 2014 [facility] [place] [facility] [address] [facility] [id number] [place] [address] 18 Apr, 2014 [facility] [place] [facility] [address] [facility] [id number] [place] [address] 13 Apr, 2014 [facility] [place] [facility] [address] [facility] [id number] [place] [address] 13 Apr, 2014 [facility] [place] [facility] [address] [facility] [id number] [place] [address] 13 Apr, 2014 [facility] [place] [facility] [address] [id number] [place] [address] 9477 13 Apr, 2014 [facility] [place] [facility] [address] [facility] [id number] [place] [address] 6663 12 Apr, 2014 [facility] [place] [facility] [address] [id number] [place] [address] 1853 12 Apr, 2014 [facility] [place] [facility] [address] [id number] [place] [address] 7507 Apr, 2014 [facility] [place] [facility] [address] [facility] [id number] [place] [address] 9342 Apr, 2014 [facility] [place] [facility] [address] [facility] [id number] [place] [address]- 2543 05 Apr, 2014 [facility] [place] [facility] [address] [facility] [id number] [place] [address]- 7122 Apr, 2014 [facility] [place] [facility] [address] [facility] [id number] [place] [address]- 8334 05 Apr, 2014 [facility] [place] [facility] [address] [facility] [id number] [address] Apr, [facility] [place] [facility] [address] [id number] [place] [address]- 5887 Apr, [facility] [place] [facility] [address] [id number] [place] [address]- 4896 Mar, [facility] [place] [facility] [address] [id number] [place] [address]- 5809 Mar, [facility] [place] [facility] [address] [id number] [place] [address]- 3516 Mar, [facility] [place] [facility] [address] [id number] [place] [address]- 1899 Mar, [facility] [place] [facility] [address] [id number] [place] [address]- 5663 Mar, [facility] [place] [facility] [address] [id number] [place] [address]- 6060 Mar, [facility] [place] [facility] [address] [id number] [place] [address]- 8602 Mar, [facility] [place] [facility] [address] [id number] [place] [address]- 4697 Mar, [facility] [place] [facility] [address] [id number] [place] [address]- 6312 Mar, [facility] [place] [facility] [address] [id number] [place] [address]- 3536 Mar, [facility] [place] [facility] [address] [id number] [place] [address]- 2596 Jan, [facility] [place] [facility] [address] [id number] [place] [address]- 3404 Jan, [facility] [place] [facility] [address] [id number] [place] [address]- 5129 Jan, [facility] [place] [facility] [address] [id number] [place] [address]- 5959 Jan, [facility] [place] [facility] [address] [id number] [place] [address]- 4047 Jan, [facility] [place] [facility] [address] [id number] [place] [address]- 8071 Jan, [facility] [place] [facility] [address] [id number] [place] [address]- 9047 Jan, [facility] [place] [facility] [address] [id number] [place] [address]- 7214 Jan, [facility] [place] [facility] [address] [id number] [place] [address]- 9289 Jan, [facility] [place] [facility] [address] [id number] [place] [address]- 5690 Jan, [facility] [place] [facility] [address] [id number] [place] [address]- 8361 Jan, [facility] [place] [facility] [address] [id number] [place] [address]- 3162 Jan, [facility] [place] [facility] [address] [id number] [place] [address]- 6080 Dec, [facility] [place] [facility] [address] [id number] [place] [address]- 1076 Dec, [facility] [place] [facility] [address] [id number] [place] [address]- 1713 Dec, [facility] [place] [facility] [address] [id number] [place] [address]- 7398 Dec, [facility] [place] [facility] [address] [id number] [place] [address]- 8368 Dec, [facility] [place] [facility] [address] [id number] [place] [address]- 1313 Dec, [facility] [place] [facility] [address] [id number] [place] [address]- 9856 Dec, [facility] [place] [facility] [address] [id number] [place] [address]- 4271 Dec, [facility] [place] [facility] [address] [id number] [place] [address]- 5501 Dec, [facility] [place] [facility] [address] [id number] [place] [address]- 1939 Dec, [facility] [place] [facility] [address] [id number] [place] [address]- 5427 Nov, [facility] [place] [facility] [address] [id number] [place] [address]- 2751 Nov, [facility] [place] [facility] [address] [id number] [place] [address]- 7961 Nov, [facility] [place] [facility] [address] [id number] [place] [address]- 2226 Nov, [facility] [place] [facility] [address] [id number] [place] [address]- 9357 Nov, [facility] [place] [facility] [address] [id number] [place] [address]- 2140 Nov, [facility] [place] [facility] [address] [id number] [place] [address]- 7496 Nov, [facility] [place] [facility] [address] [id number] [place] [address]- 6394 Nov, [facility] [place] [facility] [address] [id number] [place] [address]- 2923 Nov, [facility] [place] [facility] [address] [id number] [place] [address]- 7429 24 Nov, 2013 [facility] [place] [facility] [address] [id number] [place] [address]- 9351 Nov, [facility] [place] [facility] [address] [id number] [place] [address]- 8369 Nov, [facility] [place] [facility] [address] [id number] [place] [address]- 8418 14 Nov, 2013 [facility] [place] [facility] [address] [id number] [place] [address]- 2271 14 Nov, 2013 [facility] [place] [facility] [address] [id number] [place] [address]- 2266 10 Nov, 2013 [facility] [place] [facility] [address] [id number] [place] [address]- 5336 10 Nov, 2013 [facility] [place] [facility] [address] [facility] [id number] [place] [address]- 6873 08 Nov, 2013 [facility] [place] [facility] [address] [id number] [place] [address]- 9949 08 Nov, 2013 [facility] [place] [facility] [address] [id number] [place] [address]- 4219 Nov, [facility] [place] [facility] [address] [id number] [place] [address]- 4660 Nov, [facility] [place] [facility] [address] [id number] [place] [address]- 7976 26 Oct, 2013 [facility] [place] [facility] [address] [id number] [place] [address]- 4166 26 Oct, 2013 [facility] [place] [facility] [address] [id number] [place] [address]- 5230 19 Oct, 2013 [facility] [place] [facility] [address] [facility] [id number] [place] [address]- 3409 19 Oct, 2013 [facility] [place] [facility] [address] [id number] [place] [address]- 6097 12 Oct, 2013 [facility] [place] [facility] [address] [id number] [place] [address]- 2541 12 Oct, 2013 [facility] [place] [facility] [address] [id number] [place] [address]- 7631 10 Oct, 2013 [facility] [place] [facility] [address] [facility] [id number] [place] [address]- 8520 10 Oct, 2013 [facility] [place] [facility] [address] [facility] [id number] [place] [address]- 5512 08 Oct, 2013 [facility] [place] [facility] [address] [id number] [place] [address]- 5144 Oct, [facility] [place] [facility] [address] [id number] [place] [address]- 7842 Sep, [facility] [place] [facility] [address] [id number] [place] [address]- 0515 Sep, [facility] [place] [facility] [address] [id number] [place] [address]- 1645 Sep, [facility] [place] [facility] [address] [id number] [place] [address]- 4735 Sep, [facility] [place] [facility] [address] [id number] [place] [address]- 0563 Sep, [facility] [place] [facility] [address] [id number] [place] [address]- 1826 Sep, [facility] [place] [facility] [address] [id number] [place] [address]- 9662 Sep, [facility] [place] [facility] [address] [id number] [place] [address]- 2410 Sep, [facility] [place] [facility] [address] [id number] [place] [address]- 4967 Sep, [facility] [place] [facility] [address] [id number] [place] [address]- 4274 Sep, [facility] [place] [facility] [address] [id number] [place] [address]- 3522 Sep, [facility] [place] [facility] [address] [id number] [place] [address]- 7276 Sep, [facility] [place] [facility] [address] [id number] [place] [address]- 2659 Sep, [facility] [place] [facility] [address] [id number] [place] [address]- 2429 Sep, [facility] [place] [facility] [address] [id number] [place] [address]- 6150 Sep, [facility] [place] [facility] [address] [id number] [place] [address]- 6487 Sep, [facility] [place] [facility] [address] [id number] [place] [address]- 0327 Sep, [facility] [place] [facility] [address] [id number] [place] [address]- 4314 Sep, [facility] [place] [facility] [address] [id number] [place] [address]- 3423 Sep, [facility] [place] [facility] [address] [id number] [place] [address]- 8458 Sep, [facility] [place] [facility] [address] [id number] [place] [address]- 4369 Sep, [facility] [place] [facility] [address] [id number] [place] [address]- 4077 Sep, [facility] [place] [facility] [address] [id number] [place] [address]- 9756 Sep, [facility] [place] [facility] [address] [id number] [place] [address]- 2627 Sep, [facility] [place] [facility] [address] [id number] [place] [address]- 3364 Sep, [facility] [place] [facility] [address] [id number] [place] [address]- 6631 Aug, [facility] [place] [facility] [address] [id number] [place] [address]- 4068 Aug, [facility] [place] [facility] [address] [id number] [place] [address]- 1058 Aug, [facility] [place] [facility] [address] [id number] [place] [address]- 1876 Aug, [facility] [place] [facility] [address] [id number] [place] [address]- 8132 Aug, [facility] [place] [facility] [address] [id number] [place] [address]- 7186 Aug, [facility] [place] [facility] [address] [id number] [place] [address]- 7801 Aug, 2013 [facility] [place] [facility] [address] [id number] [place] [address]- 8108 Aug, [facility] [place] [facility] [address] [id number] [place] [address]- 4924 Aug, 2013 [facility] [place] [facility] [address] [id number] [place] [address]- 0438 Aug, [facility] [place] [facility] [address] [id number] [place] [address]- 0026 Aug, [facility] [place] [facility] [address] [id number] [place] [address]- 0921 Aug, [facility] [place] [facility] [address] [id number] [place] [address]- 7262 Aug, [facility] [place] [facility] [address] [id number] [place] [address]- 5648 Jul, [facility] [place] [facility] [address] [id number] [place] [address]- 1186 Jul, [facility] [place] [facility] [address] [id number] [place] [address]- 8518 Jul, [facility] [place] [facility] [address] [id number] [place] [address]- 0788 Jul, [facility] [place] [facility] [address] [id number] [place] [address]- 1261 Jul, [facility] [place] [facility] [address] [id number] [place] [address]- 1493 Jul, [facility] [place] [facility] [address] [id number] [place] [address]- 0090 Jul, [facility] [place] [facility] [address] [id number] [place] [address]- 6201 June, [facility] [place] [facility] [address] [id number] [place] [address]- 9789 June, [facility] [place] [facility] [address] [id number] [place] [address]- 1899 June, [facility] [place] [facility] [address] [id number] [place] [address]- 5198 June, [facility] [place] [facility] [address] [id number] [place] [address]- 2517 May, [facility] [place] [facility] [address] [id number] [place] [address]- 8561 May, [facility] [place] [facility] [address] [id number] [place] [address]- 0345 May, [facility] [place] [facility] [address] [id number] [place] [address]- 6033 May, [facility] [place] [facility] [address] [id number] [place] [address]- 9609 May, [facility] [place] [facility] [address] [id number] [place] [address]- 8283 May, [facility] [place] [facility] [address] [id number] [place] [address]- 8884 May, [facility] [place] [facility] [address] [id number] [place] [address]- 9975 May, [facility] [place] [facility] [address] [id number] [place] [address]- 8901 May, [facility] [place] [facility] [address] [id number] [place] [address]- 9527 May, [facility] [place] [facility] [address] [id number] [place] [address]- 7464 Apr, [facility] [place] [facility] [address] [id number] [place] [address]- 2406 Apr, [facility] [place] [facility] [address] [id number] [place] [address]- 2546 Apr, [facility] [place] [facility] [address] [id number] [place] [address]- 1884 Apr, [facility] [place] [facility] [address] [id number] [place] [address]- 4616 Apr, [facility] [place] [facility] [address] [id number] [place] [address]- 7216 Apr, [facility] [place] [facility] [address] [id number] [place] [address]- 2333 Apr, [facility] [place] [facility] [address] [id number] [place] [address]- 0176 Apr, [facility] [place] [facility] [address] [id number] [place] [address]- 2889 Apr, [facility] [place] [facility] [address] [id number] [place] [address]- 1026 Apr, [facility] [place] [facility] [address] [id number] [place] [address]- 9800 Mar, [facility] [place] [facility] [address] [id number] [place] [address]- 8539 Mar, [facility] [place] [facility] [address] [facility] [id number] [place] [address]- 2108 Mar, [facility] [place] [facility] [address] [facility] [id number] [place] [address]- 8800 Mar, [facility] [place] [facility] [address] [id number] [place] [address]- 3805 Mar, [facility] [place] [facility] [address] [id number] [place] [address]- 5419 Mar, [facility] [place] [facility] [address] [facility] [id number] [place] [address]- 0024 Jan, [facility] [place] [facility] [address] [id number] [place] [address]- 7321 Jan, [facility] [place] [facility] [address] [id number] [place] [address]- 8031 Jan, [facility] [place] [facility] [address] [id number] [place] [address]- 3163 Jan, [facility] [place] [facility] [address] [id number] [place] [address]- 3609 Jan, [facility] [place] [facility] [address] [id number] [place] [address]- 5347 Jan, [facility] [place] [facility] [address] [id number] [place] [address]- 3811 Jan, [facility] [place] [facility] [address] [id number] [place] [address]- 7201 Jan, [facility] [address] [id number] [place] [address]- 5289 Jan, [facility] [place] [facility] [address] [id number] [place] [address]- 2538 Dec, [facility] [place] [facility] [address] [id number] [place] [address]- 8866 Dec, [facility] [place] [facility] [address] [id number] [place] [address]- 4946 Dec, [facility] [place] [facility] [address] [id number] [place] [address]- 2726 Dec, [facility] [place] [facility] [address] [id number] [place] [address]- 4945 Dec, [facility] [place] [facility] [address] [id number] [place] [address]- 7743 Dec, [facility] [place] [facility] [address] [id number] [place] [address]- 1473 Dec, [facility] [place] [facility] [address] [id number] [place] [address]- 1493 15 Dec, 2012 [facility] [place] [facility] [address] [id number] [place] [address]- 0468 Dec, [facility] [place] [facility] [address] [id number] [place] [address]- 7091 Dec, [facility] [place] [facility] [address] [id number] [place] [address]- 4388 Dec, [facility] [place] [facility] [address] [id number] [place] [address]- 5447 Nov, [facility] [place] [facility] [address] [id number] [place] [address]- 3337 Nov, [facility] [place] [facility] [address] [id number] [place] [address]- 4127 Nov, [facility] [place] [facility] [address] [id number] [place] [address]- 1774 Nov, [facility] [place] [facility] [address] [id number] [place] [address]- 4259 Nov, [facility] [place] [facility] [address] [id number] [place] [address]- 7763 Oct, [facility] [place] [facility] [address] [id number] [place] [address]- 0985 Oct, [facility] [place] [facility] [address] [id number] [place] [address]- 6449 Sep, [facility] [place] [facility] [address] [id number] [place] [address]- 4179 Aug, [facility] [place] [facility] [address] [id number] [place] [address]- 9466 Aug, [facility] [place] [facility] [address] [id number] [place] [address]- 1176 Aug, [facility] [place] [facility] [address] [id number] [place] [address]- 1468 Aug, [facility] [place] [facility] [address] [id number] [place] [address]- 2899 Jul, [facility] [place] [facility] [address] [id number] [place] [address]- 9152 Jul, [facility] [address] [id number] [place] [address]- 8413 June, [facility] [address] [id number] [place] [address]- 2308 June, [facility] [address] [id number] [place] [address]- 0532 June, [facility] [address] [id number] [place] [address]- 4968 May, [facility] [address] [id number] [place] [address]- 3343 May, [facility] [address] [id number] [place] [address]- 5091 May, [facility] [address] [id number] [place] [address]- 2452 Apr, [facility] [address] [id number] [place] [address] 18 Apr, 2012 [facility] [address] [id number] [place] [address] 15 Apr, 2012 [facility] [address] [facility] [id number] [place] [address] 14 Apr, 2012 [facility] [address] [id number] [place] [address] Apr, [facility] [address] [id number] [place] [address] Apr, [facility] [address] [id number] [place] [address] Apr, [facility] [address] [id number] [place] [address] Apr, [facility] [address] [id number] [place] [address] Apr, [facility] [address] [id number] [place] [address] Apr, [facility] [place] [facility] [address] [id number] [place] [address] 19 Apr, 2012 [facility] [place] [facility] [address] [id number] [place] [address] Apr, [facility] [place] [facility] [address] [id number] [place] [address] Apr, [facility] [place] [facility] [address] [id number] [place] [address] Mar, [facility] [place] [facility] [address] [id number] [place] [address] Mar, [facility] [place] [facility] [address] [id number] [place] [address] 16 Mar, 2012 [facility] [place] [facility] [address] [id number] [place] [address] Mar, [facility] [place] [facility] [address] [id number] [place] [address] 88[address] Mar, [facility] [place] [facility] [address] [id number] [place] [address] Jan, [facility] [place] [facility] [address] [id number] [place] [address] 28 Jan, 2012 [facility] [place] [facility] [address] [id number] [place] [address] 9[address] 22 Jan, 2012 [facility] [place] [facility] [address] [id number] [place] [address]- 7851 22 Jan, 2012 [facility] [place] [facility] [address] [id number] [place] [address]- 2651 14 Jan, 2012 [facility] [place] [facility] [address] [id number] [place] [address] 4993 13 Jan, 2012 [facility] [place] [facility] [address] [id number] [place] [address] 13 Jan, 2012 [facility] [address] [id number] [place] [address] 8636 11 Jan, 2012 [facility] [place] [facility] [address] [id number] [place] [address] 06 Jan, 2012 [facility] [address] [id number] [place] [address]- 8626 06 Jan, 2012 [facility] [address] [id number] [place] [address] Jan, [facility] [address] [id number] [place] [address] Jan, [facility] [address] [id number] [place] [address] Jan, [facility] [address] [id number] [place] [address] Jan, [facility] [address] [id number] [place] [address]- 3577 26 Jan, 2012 [facility] [address] [id number] [place] [address] 60[address] 26 Jan, 2012 [facility] [address] [facility] [id number] [place] [address] 19 Jan, 2012 [facility] [place] [facility] [address] [id number] [place] [address] 0896 19 Jan, 2012 [facility] [address] [id number] [place] [address]165 15 Jan, 2012 [facility] [place] [facility] [address] [id number] [place] [address] 47[address] 15 Jan, 2012 [facility] [place] [facility] [address] [facility] [id number] [place] [address] 14 Jan, 2012 [facility] [place] [facility] [address] [id number] [place] [address] 8846 14 Jan, 2012 [facility] [place] [facility] [address] [id number] [place] [address] 1326 14 Jan, 2012 [facility] [place] [facility] [address] [id number] [place] [address]- 0296 14 Jan, 2012 [facility] [place] [facility] [address] [id number] [place] [address]- 0393 07 Jan, 2012 [facility] [place] [facility] [address] [id number] [place] [address]- 3791 07 Jan, 2012 [facility] [place] [facility] [address] [id number] [place] [address]- 8580 16 Dec, 2011 [facility] [place] [facility] [address] [id number] [place] [address]- 3441 16 Dec, 2011 [facility] [place] [facility] [address] [id number] [place] [address]- 8987 13 Nov, 2011 [facility] [place] [facility] [address] [id number] [place] [address]- 4114 13 Nov, 2011 [facility] [place] [facility] [address] [id number] [place] [address]- 1881 13 Nov, 2011 [facility] [place] [facility] [address] [id number] [place] [address]- 9641 12 Nov, 2011 [facility] [place] [facility] [address] [id number] [place] [address]- 6[address] Sep, [facility] [place] [facility] [address] [id number] [address] Sep, [facility] [place] [facility] [address] [id number] [place] [address] 4105 Aug, [facility] [place] [facility] [address] [id number] [place] [address] 13 Aug, 2011 [facility] [place] [facility] [address] [facility] [id number] [address] Aug, [facility] [place] [facility] [address] [id number] [place] [address] Aug, [facility] [address] [id number] [place] [address] 0916 June, [facility] [address] [id number] [place] [address]- 2546 June, [facility] [address] [id number] [place] [address]- 6686 May, [facility] [address] [id number] [place] [address]- 1536 Apr, [facility] [address] [id number] [place] [address]- 1166 Apr, [facility] [address] [id number] [place] [address] 25[address] Apr, [facility] [address] [id number] [place] [address] Apr, [facility] [address] [id number] [place] [address]- 1216 Apr, [facility] [address] [id number] [place] [address]- 0566 Apr, [facility] [address] [id number] [place] [address] Mar, [facility] [address] [id number] [place] [address] Mar, [facility] [place] [facility] [address] [id number] [place] [address] Mar, [facility] [address] [id number] [place] [address] Jan, [facility] [place] [facility] [address] [id number] [place] [address] Jan, [facility] [address] [facility] [id number] [place] [address] Jan, [facility] [place] [facility] [address] [id number] [place] [address] Jan, [facility] [place] [facility] [address] [id number] [place] [address] Jan, [facility] [place] [facility] [address] [id number] [place] [address] Jan, [facility] [place] [facility] [address] [id number] [place] [address] Jan, [facility] [place] [facility] [address] [id number] [place] [address] Dec, [facility] [place] [facility] [address] [id number] [place] [address] Dec, [facility] [place] [facility] [address] [id number] [place] [address] Nov, [facility] [place] [facility] [address] [id number] [place] [address] Nov, [facility] [place] [facility] [address] [id number] [place] [address] Nov, [facility] [place] [facility] [address] [id number] [place] [address] Nov, [facility] [place] [facility] [address] [id number] [place] [address] Oct, [facility] [place] [facility] [address] [id number] [place] [address] Sep, [facility] [place] [facility] [address] [id number] [place] [address] Mar, [facility] [place] [facility] [address] [id number] [place] [address] Jan, [facility] [place] [facility] [address] [id number] [place] [address] Dec, [facility] [place] [facility] [address] [id number] [place] [address] Dec, 2009 [facility] [place] [facility] [address] [id number] [place] [address] 04 Dec, 2009 [facility] [place] [facility] [address] [id number] [place] [address] Dec, [facility] [place] [facility] [address] [facility] [id number] [place] [address] 26 Nov, 2009 [facility] [place] [facility] [address] [id number] [place] [address] 15 Nov, 2009 [facility] [place] [facility] [address] [id number] [place] [address] 14 Nov, 2009 [facility] [place] [facility] [address] [id number] [place] [address] 14 Nov, 2009 [facility] [place] [facility] [address] [id number] [place] [address] Oct, [facility] [place] [facility] [address] [id number] [place] [address] Jul, [facility] [place] [facility] [address] [id number] [place] [address] June, [facility] [place] [facility] [address] [facility] [id number] [place] [address] June, [facility] [place] [facility] [address] [id number] [place] [address] Apr, [facility] [place] [facility] [address] [id number] [place] [address] Mar, [facility] [place] [facility] [address] [id number] [place] [address] Jan, [facility] [place] [facility] [address] [facility] [id number] [place] [address] Jan, [facility] [place] [facility] [address] [facility] [id number] [place] [address] Dec, [facility] [place] [facility] [address] [facility] [id number] [place] [address] Dec, [facility] [address] [facility] [id number] [place] [address] Dec, [facility] [address] [id number] [address] Dec, [facility] [address] [facility] [id number] [place] [address] Nov, [facility] [address] [facility] [id number] [place] [address] Jul, [facility] [address] [facility] [id number] [place] [address] June, IMMUNIZATIONS No Known Immunizations SOCIAL HISTORY Never Assessed REASON FOR VISIT Right hip pain PLAN OF CARE VITAL SIGNS MEDICATIONS Unknown Medications RESULTS No Results PROCEDURES No Known procedures INSTRUCTIONS MEDICATIONS ADMINISTERED No Known Medications MEDICAL (GENERAL) HISTORY Type Description Date Medical History hypertension Medical History sleep apnea-did not tolerate CPAP Medical History oxygen dependent at [facility] Medical History colonic polyps Medical History [...]
--- OUTSIDE RECORDS SUMMARY | 2018-02-26 19:07 | XMS REPORT ---
Author Author GRAHAM CHRIS [facility] Address [address] [place] [address] Care Team Providers Care Separations Scientist Name Role Phone GRAHAMELLIOTT HANNAHANY Unavailable PROBLEMS Type Condition ICD9-CM Code MOG43-KV Code Onset Dates Condition Status SNOMED Code Problem Pulmonary asbestosis J61 Active 15929411 Problem Left ventricular diastolic dysfunction I51.9 Active 107718659 Problem Chronic gout, unspecified cause, unspecified site M1A.9XX0 Active 61380960 Problem Renal cyst, left N28.1 Active 91779105 Problem History of weight loss surgery Z98.84 Active 153550246 Problem Nocturnal hypoxia G47.34 Active 248015653 Problem Obstructive sleep apnea syndrome G47.33 Active 33011275 Problem History of diverticulitis Z87.19 Active 084111512015495 Problem Allergic rhinitis, unspecified allergic rhinitis type J30.9 Active 75379810 Problem Erectile dysfunction due to diseases classified elsewhere N52.1 Active 331776655 Problem Acute right-sided low back pain with right-sided sciatica M54.41 Active 883558234 Problem Psoriasis L40.9 Active 9472037 Problem Essential hypertension I10 Active 75081454 Problem Nephrolithiasis N20.0 Active 66425150 Problem Chronic prescription opiate use Z79.899 Active 604922608 Problem 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 Active 49449879 Problem Benign prostatic hyperplasia, presence of lower urinary tract symptoms unspecified, unspecified morphology N40.0 Active 247748125 Problem Moderate episode of recurrent major depressive disorder F33.1 Active 535618401 Problem Age-related osteoporosis without current pathological fracture M81.0 Active 28172237 Problem Low back pain M54.5 Active 271986202 Problem Anxiety F41.9 Active 80210488 Problem Urge incontinence N39.41 Active 942848601 Problem Hyperlipidemia, unspecified E78.5 Active 72713697 Problem Esophageal stricture K22.2 Active 66505466 Problem Cervicalgia M54.2 Active 8731496641392 Problem Primary insomnia F51.01 Active 000352455 ALLERGIES No Information ENCOUNTERS Encounter Location Date Diagnosis [facility] [id number] [place] [address] 33058- 9049 Aug, [facility] [id number] [place] [address] 43823- 6521 Aug, [facility] [address] 66263- 8053 Jul, [facility] [id number] [place] [address] 97251- 9442 Jul, Anxiety F41.9 [facility] [address] 53391- 4060 June, Anxiety F41.9 [facility] [address] 91133- 9655 June, [facility] [id number] [place] [address] 74993- 3394 June, Low back pain M54.5 ; Chronic prescription opiate use Z79.899 ; Candidal intertrigo B37.2 ; Urge incontinence N39.41 ; Essential hypertension I10 ; Moderate episode of recurrent major depressive disorder F33.1 ; Age-related osteoporosis without current pathological fracture M81.0 and BMI 45.0-49.9, adult Z68.42 [facility] [id number] [place] [address] 62575- 3342 June, [facility] [id number] [place] [address] 69510- 7900 May, Anxiety F41.9 [facility] [id number] [place] [address] 06457- 7878 May, [facility] [id number] [place] [address] 35722- 8264 May, [facility] [id number] [place] [address] 06195- 1004 Apr, Anxiety F41.9 [facility] [id number] [address] 4217 Apr, [facility] [id number] [place] [address] 01613- 5688 Apr, Low back pain M54.5 [facility] [id number] [place] [address] 22925- 1775 Apr, [facility] [id number] [place] [address] 26301- 3546 Apr, [facility] [id number] [place] [address] 75913- 1032 Apr, Anxiety F41.9 [facility] [id number] [place] [address] 95844- 7923 Apr, Right groin pain R10.31 [facility] [id number] [place] [address] 63576- 1730 Mar, [facility] [id number] [place] [address] 26538- 7707 Mar, [facility] [id number] [place] [address] 81272- 4894 Mar, Anxiety F41.9 [facility] [id number] [place] [address] 46194- 1976 Mar, Low back pain M54.5 [facility] [id number] [place] [address] 45525- 7919 Mar, Right groin pain R10.31 ; Low back pain M54.5 and BMI 45.0- 49.9, adult Z68.42 [facility] [id number] [place] [address] 94242- 4624 Mar, [facility] [id number] [place] [address] 41046- 1718 Mar, [facility] [id number] [address]- 3294 Mar, [facility] [id number] [place] [address] 18714 -9538 Mar, [facility] [id number] [place] [address] 04464 -5254 Mar, Cough R05 ; Pneumonia of right lower lobe due to infectious organism J18.1 and Abnormal chest x-ray R93.8 [facility] [id number] [place] [address] 93067- 8331 Mar, [place] [address] 63674- 6880 Mar, [place] [id number] [place] [address] 99917- 8771 Jan, Anxiety F41.9 [place] [address] 11732- 2386 Jan, [place] [id number] [place] [address] 94227- 1936 Jan, Moderate episode of recurrent major depressive disorder F33.1 [place] [id number] [place] [address] 54232- 7507 Jan, Subacromial bursitis of right shoulder joint M75.51 ; Shortness of breath on exertion R06.02 and BMI 45.0-49.9, adult Z68.42 [place] [id number] [place] [address] 54772- 6531 Dec, Anxiety F41.9 [place] [id number] [place] [address] 94069- 4304 Dec, [place] [id number] [place] [address] 46232- 3444 Dec, Low back pain M54.5 [place] [id number] [place] [address] 58812- 2262 Oct, Low back pain M54.5 [facility] [address] [address]- 0624 Sep, [facility] [id number] [place] [address] 18315- 4978 Sep, Erectile dysfunction due to diseases classified elsewhere N52.1 [facility] [id number] [place] [address] 42184- 1123 Sep, Erectile dysfunction due to diseases classified elsewhere N52.1 [facility] [id number] [place] [address] 21356- 0786 Sep, [facility] [id number] [place] [address] 43283- 0764 Sep, Erectile dysfunction due to diseases classified elsewhere N52.1 [facility] [id number] [place] [address] 10081- 1036 Sep, Low back pain M54.5 and Anxiety F41.9 [facility] [id number] [place] [address] 63379 -4976 Aug, Acute allergic rhinitis J30.9 [facility] [id number] [place] [address] 92750- 9709 Aug, [facility] [id number] [place] [address] 98833- 4492 Aug, Anxiety F41.9 [facility] [id number] [place] [address] 94158- 3956 Jul, Low back pain M54.5 ; Chronic prescription opiate use Z79.899 and Essential hypertension I10 [facility] [id number] [place] [address] 27379- 0551 Jul, Anxiety F41.9 and Low back pain M54.5 [facility] [id number] [place] [address] 07095- 0088 June, [facility] [id number] [place] [address] 77353- 0109 June, Anxiety F41.9 [facility] [id number] [place] [address] 34578- 3058 May, Low back pain M54.5 [facility] [id number] [place] [address] 31708- 8647 May, [facility] [id number] [place] [address] 39539- 6418 May, Anxiety F41.9 [facility] [id number] [place] [address] 34805- 0100 Apr, [facility] [id number] [place] [address] 86654- 9564 Apr, Low back pain M54.5 [facility] [id number] [place] [address] 87909- 5728 Apr, Moderate episode of recurrent major depressive disorder F33.1 [facility] [id number] [place] [address] 71052- 3688 Apr, Anxiety F41.9 [facility] [id number] [place] [address] 41780- 6167 Apr, Low back pain M54.5 [facility] [id number] [place] [address] 93033- 2167 15 Apr, 2016 Elevated alkaline phosphatase level R74.8 [facility] [id number] [place] [address] 56787- 7124 10 Apr, 2016 Alkaline phosphatase elevation R74.8 [facility] [id number] [place] [address] 92390- 4926 06 Apr, 2016 Anxiety F41.9 [facility] [id number] [place] [address] 89921- 8893 03 Apr, 2016 Low back pain M54.5 [facility] [id number] [place] [address] 04083- 8458 03 Apr, 2017 History of weight loss surgery Z98.84 ; Encounter for hepatitis C screening test for low risk patient Z11.59 ; History of herpes genitalis Z86.19 ; Essential hypertension I10 ; Hyperlipidemia, unspecified E78.5 ; Exposure to STD Z20.2 and Benign prostatic hyperplasia, presence of lower urinary tract symptoms unspecified, unspecified morphology N40.0 [facility] [id number] [place] [address] 15781- 5984 02 Apr, 2016 [place] [id number] [place] [address] 84847- 2289 Mar, [place] [id number] [place] [address] 50035- 8650 Mar, [address] [id number] [place] [address] 26575- 9225 Mar, [place] [id number] [place] [address] 95879- 8888 Mar, Acute right-sided low back pain with right-sided sciatica M54.41 [place] [id number] [place] [address] 16308- 8018 Mar, Low back pain M54.5 [facility] [id number] [place] [address] 59392 -6602 Mar, Muscle strain of chest wall, initial encounter S29.011A ; Muscle strain of right thigh, initial encounter S76.911A and Acute non- recurrent maxillary sinusitis J01.00 [facility] [address] [place] [address] 15161- 5889 Mar, Benign prostatic hyperplasia, presence of lower urinary tract symptoms unspecified, unspecified morphology N40.0 [facility] [address] [place] [address] 21592- 2631 Jan, Low back pain M54.5 [facility] [id number] [place] [address] 30789- 3646 13 Jan, 2016 Low back pain M54.5 ; Essential hypertension I10 ; Hyperlipidemia, unspecified E78.5 ; Anxiety F41.9 ; Moderate episode of recurrent major depressive disorder F33.1 ; Primary insomnia F51.01 ; Exposure to STD Z20.2 ; Encounter for hepatitis C screening test for low risk patient Z11.59 and History of herpes genitalis Z86.19 [facility] [address] 93977- 5981 17 Jan, 2016 [facility] [address] 87911- 4177 20 Dec, 2015 [place] [address] 29283- 6286 14 Dec, 2015 Anxiety F41.9 ; Cervicalgia M54.2 ; Moderate episode of recurrent major depressive disorder F33.1 and Encounter for immunization Z23 [facility] [address] 70621- 4404 23 Nov, 2015 [facility] [address] 62062- 5971 22 Nov, 2015 [facility] [address] 45110- 3191 16 Nov, 2015 [facility] [id number] [place] [address] 23206- 2054 09 Nov, 2015 [facility] [id number] [place] [address] 53493- 6460 Sep, [facility] [address] 63873- 2072 Aug, Low back pain M54.5 ; Anxiety F41.9 ; Primary insomnia F51.01 and Chronic prescription opiate use Z79.899 [facility] [id number] [place] [address] 45340- 4937 Jul, [facility] [id number] [place] [address] 37096- 4838 Jul, [facility] [address] [id number] [place] [address]- 2901 Jul, [facility] [address] [id number] [place] [address]- 7192 Jul, [facility] [address] [id number] [place] [address]- 9216 Jul, [facility] [address] [facility] [id number] [place] [address]- 3614 June, [facility] [address] [id number] [place] [address]- 3086 June, [facility] [address] [facility] [id number] [place] [address]- 7234 June, [facility] [address] [facility] [id number] [place] [address]- 0521 June, [facility] [id number] [address]- 9226 May, Preoperative cardiovascular examination Z01.810 [facility] [id number] [place] [address]- 7879 May, [facility] [address] [facility] [id number] [place] [address]- 0494 Apr, [facility] [address] [facility] [id number] [place] [address]- 9244 Apr, Osteoarthritis of right knee M17.9 [facility] [address] [facility] [id number] [place] [address]- 4369 30 May, 2015 [facility] [address] [facility] [id number] [place] [address]- 9235 16 May, 2015 [facility] [address] [facility] [id number] [place] [address]- 1592 Apr, [facility] [address] [facility] [id number] [place] [address]- 0457 Apr, [facility] [id number] [place] [address] 20871- 7134 08 May, 2015 History of excessive cerumen Z78.9 ; Obstructive sleep apnea syndrome G47.33 ; History of diverticulitis Z87.19 and Nephrolithiasis N20.0 [place] [id number] [place] [address] 18824- 9678 29 Apr, 2015 [facility] [address] 73894 -4913 Apr, Abdominal pain R10.9 [place] [address] 33893- 4032 Apr, [place] [address] 73884- 0977 04 Apr, 2015 Osteoarthritis of right knee M17.9 [place] [address] 64198- 2620 Mar, [facility] [id number] [place] [address] 68192- 3718 15 Mar, 2015 [place] [address] 55145- 2706 14 Mar, 2015 [place] [id number] [place] [address] 25806- 3693 Mar, [facility] [id number] [place] [address] 31731 -9397 Mar, Pyelonephritis N12 ; Left-sided thoracic back pain M54.6 ; Hematuria, unspecified R31.9 and Kidney stone N20.0 [place] [id number] [place] [address] 58831- 1632 12 Mar, 2015 History of weight loss surgery Z98.84 [place] [id number] [place] [address] 88665- 2893 07 Mar, 2015 History of weight loss surgery Z98.84 and Hyperlipidemia, unspecified E78.5 [place] [id number] [place] [address] 48491- 3612 Mar, Low back pain M54.5 ; Chronic prescription opiate use Z79.899 ; Hyperlipidemia, unspecified E78.5 ; Spasm of back muscles M62.830 and History of weight loss surgery Z98.84 [facility] [id number] [place] [address] 42350- 7681 Jan, [facility] [id number] [place] [address] 79579- 0160 Jan, [facility] [id number] [place] [address] 95924- 7250 Jan, [facility] [id number] [place] [address] 94204- 9176 Dec, [facility] [id number] [place] [address] 43606- 6731 Dec, [facility] [id number] [place] [address] 99355- 6610 Dec, [facility] [id number] [place] [address] 30600- 8502 Nov, [facility] [id number] [place] [address] 63562- 4001 Nov, Obstructive sleep apnea syndrome G47.33 and Pharyngoesophageal dysphagia R13.14 [facility] [id number] [place] [address] 39286- 2299 Nov, [facility] [id number] [place] [address] 44609- 6449 Nov, [facility] [address] 43959- 8240 Nov, [facility] [id number] [place] [address] [id number] 30 Oct, 2014 Dental examination V72.2 [facility] [id number] [place] [address] 17613- 2267 Oct, [facility] [id number] [place] [address] 83866- 3718 Oct, [facility] [id number] [place] [address] 34373- 8565 Oct, [facility] [id number] [place] [address] 38859- 6305 Oct, [facility] [address] 74747- 5169 Oct, BPH (benign prostatic hyperplasia) 600.00 and Urinary frequency 788.41 [facility] [address] 45611- 0132 Oct, [facility] [id number] [place] [address] 96772- 5079 Oct, [facility] [id number] [place] [address] 50303- 4661 Oct, [facility] [id number] [place] [address] 75581- 3933 Sep, Cerumen impaction 380.4 ; Cerumen debris on tympanic membrane 380.4 ; Psoriasis 696.1 and MICKY (secretory otitis media) 381.4 [facility] [address] [place] [address] [id number] Sep, Dental examination V72.2 [facility] [id number] [place] [address] 88668- 1141 Sep, Fatigue 780.79 ; Irritable bowel syndrome 564.1 ; Overweight 278.02 ; Poor sleep V69.4 ; Shaking spells 781.0 and Broken tooth 873.63 [facility] [id number] [place] [address] 28063- 4385 Sep, [facility] [id number] [place] [address] 07059- 0260 Sep, [facility] [id number] [place] [address]- 4175 Aug, [facility] [id number] [place] [address]- 4682 Jul, [facility] [address] [facility] [id number] [place] [address]- 6034 Jul, [facility] [id number] [place] [address] 08524- 2632 Jul, [facility] [address] [facility] [id number] [place] [address]- 9825 Jul, [facility] [id number] [place] [address], [place] [address]- 3427 June, Arthritis of knee, right 716.96 [facility] [id number] [place] [address]- 4887 June, [facility] [address] [place] [address]- 2660 June, Elevated blood pressure reading without diagnosis of hypertension 796.2 [facility] [id number] [place] [address] June, [facility] [id number] [address] June, [facility] [id number] [address] June, [facility] [address] [id number] [address] June, [facility] [address] [id number] [address] May, [facility] [id number] [place] [address] May, [facility] [address] [id number] [address] Apr, [facility] [place] [facility] [address] [id number] [place] [address] 30 Apr, 2014 [facility] [place] [facility] [address] [id number] [place] [address] Apr, [facility] [place] [facility] [address] [id number] [place] [address] Apr, [facility] [place] [facility] [address] [id number] [place] [address] Apr, [facility] [place] [facility] [address] [id number] [place] [address] Apr, [facility] [place] [facility] [address] [id number] [place] [address] Apr, [facility] [place] [facility] [address] [facility] [id number] [place] [address] Apr, [facility] [place] [facility] [address] [id number] [place] [address] Apr, [facility] [place] [facility] [address] [id number] [place] [address]- [address] Apr, [facility] [place] [facility] [address] [id number] [place] [address]- [address] Apr, [facility] [place] [facility] [address] [facility] [id number] [place] [address]- [address] Apr, [facility] [place] [facility] [address] [id number], [place] [address] Apr, 2014 [facility] [place] [facility] [address] [id number] [place] [address] Apr, 2014 [facility] [place] [facility] [address] [id number] [place] [address] Apr, 2014 [facility] [place] [facility] [address] [id number] [place] [address] Apr, 2014 [facility] [place] [facility] [address] [id number] [place] [address] 20 Apr, 2014 [facility] [place] [facility] [address] [id number] [place] [address] 20 Apr, 2014 [facility] [place] [facility] [address] [facility] [id number] [place] [address]- [address] 18 Apr, 2014 [facility] [place] [facility] [address] [facility] [id number] [place] [address] 18 Apr, 2014 [facility] [place] [facility] [address] [facility] [id number] [place] [address]- [address] 13 Apr, 2014 [facility] [place] [facility] [address] [facility] [id number] [place] [address] 13 Apr, 2014 [facility] [place] [facility] [address] [facility] [id number] [place] [address] 13 Apr, 2014 [facility] [place] [facility] [address] [place] [id number] [place] [address] 13 Apr, 2014 [facility] [place] [facility] [address] [facility] [id number] [place] [address] 7658 12 Apr, 2014 [facility] [place] [facility] [address] [id number] [place] [address] 1865 12 Apr, 2014 [facility] [place] [facility] [address] [id number] [place] [address] 4058 Apr, 2014 [facility] [place] [facility] [address] [facility] [id number] [place] [address]- 7277 Apr, 2014 [facility] [place] [facility] [address] [facility] [id number] [place] [address]- 2548 05 Apr, 2014 [facility] [place] [facility] [address] [facility] [id number] [place] [address]- 9369 Apr, 2014 [facility] [place] [facility] [address] [facility] [id number] [place] [address]- 9804 05 Apr, 2014 [facility] [place] [facility] [address] [facility] [id number], [place] [address] 9568 Apr, [facility] [place] [facility] [address] [id number] [place] [address]- 0261 Apr, [facility] [place] [facility] [address] [id number] [place] [address]- 9896 Mar, [facility] [place] [facility] [address] [id number] [place] [address]- 2552 Mar, [facility] [place] [facility] [address] [id number] [place] [address]- 4744 Mar, [facility] [place] [facility] [address] [id number] [place] [address]- 8580 Mar, [facility] [place] [facility] [address] [id number] [place] [address]- 4462 Mar, [facility] [place] [facility] [address] [id number] [place] [address]- 1254 Mar, [facility] [place] [facility] [address] [id number] [place] [address]- 7990 Mar, [facility] [place] [facility] [address] [id number] [place] [address]- 1067 Mar, [facility] [place] [facility] [address] [id number] [place] [address]- 7420 Mar, [facility] [place] [facility] [address] [id number] [place] [address]- 8236 Mar, [facility] [place] [facility] [address] [id number] [place] [address]- 8908 Jan, [facility] [place] [facility] [address] [id number] [place] [address]- 2189 Jan, [facility] [place] [facility] [address] [id number] [place] [address]- 8905 Jan, [facility] [place] [facility] [address] [id number] [place] [address]- 0710 Jan, [facility] [place] [facility] [address] [id number] [place] [address]- 1755 Jan, [facility] [place] [facility] [address] [id number] [place] [address]- 5388 Jan, [facility] [place] [facility] [address] [id number] [place] [address]- 9152 Jan, [facility] [place] [facility] [address] [id number] [place] [address]- 9956 Jan, [facility] [place] [facility] [address] [id number] [place] [address]- 9013 Jan, [facility] [place] [facility] [address] [id number] [place] [address]- 9881 Jan, [facility] [place] [facility] [address] [id number] [place] [address]- 7359 Jan, [facility] [place] [facility] [address] [id number] [place] [address]- 4970 Jan, [facility] [place] [facility] [address] [id number] [place] [address]- 9665 Dec, [facility] [place] [facility] [address] [id number] [place] [address]- 8949 Dec, [facility] [place] [facility] [address] [id number] [place] [address]- 6480 Dec, [facility] [place] [facility] [address] [id number] [place] [address]- 8616 Dec, [facility] [place] [facility] [address] [id number] [place] [address]- 5823 Dec, [facility] [place] [facility] [address] [id number] [place] [address]- 2969 Dec, [facility] [place] [facility] [address] [id number] [place] [address]- 5885 Dec, [facility] [place] [facility] [address] [id number] [place] [address]- 2905 Dec, [facility] [place] [facility] [address] [id number] [place] [address]- 3015 Dec, [facility] [place] [facility] [address] [id number] [place] [address]- 2731 Dec, [facility] [place] [facility] [address] [id number] [place] [address]- 0686 Nov, [facility] [place] [facility] [address] [id number] [place] [address]- 0808 Nov, [facility] [place] [facility] [address] [id number] [place] [address]- 2322 Nov, [facility] [place] [facility] [address] [id number] [place] [address]- 7201 Nov, [facility] [place] [facility] [address] [id number] [place] [address]- 0748 Nov, [facility] [place] [facility] [address] [id number] [place] [address]- 3248 Nov, [facility] [place] [facility] [address] [id number] [place] [address]- 2265 Nov, [facility] [place] [facility] [address] [id number], [place] [address]- 7422 Nov, [facility] [place] [facility] [address] [id number], [place] [address]- 1992 Nov, [facility] [place] [facility] [address] [id number], [place] [address]- 8295 24 Nov, 2013 [facility] [place] [facility] [address] [id number] [place] [address]- 7981 Nov, [facility] [place] [facility] [address] [id number], [place] [address]- 7685 Nov, [facility] [place] [facility] [address] [id number], [place] [address]- 3227 14 Nov, 2013 [facility] [place] [facility] [address] [id number], [place] [address]- 8337 14 Nov, 2013 [facility] [place] [facility] [address] [id number] [place] [address]- 8225 10 Nov, 2013 [facility] [place] [facility] [address] [id number] [place] [address]- 0777 10 Nov, 2013 [facility] [place] [facility] [address] [facility] [id number] [place] [address]- 4075 08 Nov, 2013 [facility] [place] [facility] [address] [id number] [place] [address]- 1752 08 Nov, 2013 [facility] [place] [facility] [address] [id number] [place] [address]- 9040 Nov, [facility] [place] [facility] [address] [id number] [place] [address]- 2549 Nov, [facility] [place] [facility] [address] [id number], [place] [address]- 5130 26 Oct, 2013 [facility] [place] [facility] [address] [id number] [place] [address]- 4474 26 Oct, 2013 [facility] [place] [facility] [address] [id number] [place] [address]- 9883 19 Oct, 2013 [facility] [place] [facility] [address] [facility] [id number] [place] [address]- 8461 19 Oct, 2013 [facility] [place] [facility] [address] [id number], [place] [address]- 3882 12 Oct, 2013 [facility] [place] [facility] [address] [id number], [place] [address]- 2540 12 Oct, 2013 [facility] [place] [facility] [address] [id number] [place] [address]- 2754 10 Oct, 2013 [facility] [place] [facility] [address] [facility] [id number], [place] [address]- 8063 10 Oct, 2013 [facility] [place] [facility] [address] [facility] [id number] [place] [address]- 4670 08 Oct, 2013 [facility] [place] [facility] [address] [id number] [place] [address]- 2404 Oct, [facility] [place] [facility] [address] [id number] [place] [address]- 3778 Sep, [facility] [place] [facility] [address] [id number] [place] [address]- 8360 Sep, [facility] [place] [facility] [address] [id number] [place] [address]- 4828 Sep, [facility] [place] [facility] [address] [id number] [place] [address]- 3414 Sep, [facility] [place] [facility] [address] [id number] [place] [address]- 3374 Sep, [facility] [place] [facility] [address] [id number] [place] [address]- 0291 Sep, [facility] [place] [facility] [address] [id number] [place] [address]- 0225 Sep, [facility] [place] [facility] [address] [id number] [place] [address]- 2354 Sep, [facility] [place] [facility] [address] [id number] [place] [address]- 6160 Sep, [facility] [place] [facility] [address] [id number] [place] [address]- 1507 Sep, [facility] [place] [facility] [address] [id number] [place] [address]- 9320 Sep, [facility] [place] [facility] [address] [id number] [place] [address]- 2751 Sep, [facility] [place] [facility] [address] [id number] [place] [address]- 9173 Sep, [facility] [place] [facility] [address] [id number] [place] [address]- 0841 Sep, [facility] [place] [facility] [address] [id number] [place] [address]- 1363 Sep, [facility] [place] [facility] [address] [id number] [place] [address]- 1151 Sep, [facility] [place] [facility] [address] [id number] [place] [address]- 4400 Sep, [facility] [place] [facility] [address] [id number] [place] [address]- 9247 Sep, [facility] [place] [facility] [address] [id number] [place] [address]- 9611 Sep, [facility] [place] [facility] [address] [id number] [place] [address]- 1999 Sep, [facility] [place] [facility] [address] [id number] [place] [address]- 3063 Sep, [facility] [place] [facility] [address] [id number] [place] [address]- 3457 Sep, [facility] [place] [facility] [address] [id number] [place] [address]- 7819 Sep, [facility] [place] [facility] [address] [id number] [place] [address]- 0916 Sep, [facility] [place] [facility] [address] [id number] [place] [address]- 6854 Sep, [facility] [place] [facility] [address] [id number] [place] [address]- 5046 Aug, [facility] [place] [facility] [address] [id number] [place] [address]- 9319 Aug, [facility] [place] [facility] [address] [id number] [place] [address]- 5408 Aug, [facility] [place] [facility] [address] [id number] [place] [address]- 2856 Aug, [facility] [place] [facility] [address] [id number] [place] [address]- 0535 Aug, [facility] [place] [facility] [address] [id number] [place] [address]- 5328 Aug, [facility] [place] [facility] [address] [id number] [place] [address]- 1988 Aug, 2013 [facility] [place] [facility] [address] [id number] [place] [address]- 5318 Aug, [facility] [place] [facility] [address] [id number] [place] [address]- 1468 Aug, 2013 [facility] [place] [facility] [address] [id number] [place] [address]- 7755 Aug, [facility] [place] [facility] [address] [id number] [place] [address]- 7542 Aug, [facility] [place] [facility] [address] [id number] [place] [address]- 2737 Aug, [facility] [place] [facility] [address] [id number] [place] [address]- 6051 Aug, [facility] [place] [facility] [address] [id number] [place] [address]- 4293 Jul, [facility] [place] [facility] [address] [id number] [place] [address]- 2822 Jul, [facility] [place] [facility] [address] [id number] [place] [address]- 8045 Jul, [facility] [place] [facility] [address] [id number] [place] [address]- 8330 Jul, [facility] [place] [facility] [address] [id number] [place] [address]- 0181 Jul, [facility] [place] [facility] [address] [id number] [place] [address]- 5849 Jul, [facility] [place] [facility] [address] [id number] [place] [address]- 3059 Jul, [facility] [place] [facility] [address] [id number] [place] [address]- 2790 June, [facility] [place] [facility] [address] [id number] [place] [address]- 1745 June, [facility] [place] [facility] [address] [id number] [place] [address]- 6635 June, [facility] [place] [facility] [address] [id number] [place] [address]- 0903 June, [facility] [place] [facility] [address] [id number] [place] [address]- 1958 May, [facility] [place] [facility] [address] [id number] [place] [address]- 4226 May, [facility] [place] [facility] [address] [id number] [place] [address]- 9093 May, [facility] [place] [facility] [address] [id number] [place] [address]- 4596 May, [facility] [place] [facility] [address] [id number] [place] [address]- 4577 May, [facility] [place] [facility] [address] [id number] [place] [address]- 0063 May, [facility] [place] [facility] [address] [id number] [place] [address]- 8286 May, [facility] [place] [facility] [address] [id number] [place] [address]- 3592 May, [facility] [place] [facility] [address] [id number] [place] [address]- 1570 May, [facility] [place] [facility] [address] [id number] [place] [address]- 2989 May, [facility] [place] [facility] [address] [id number] [place] [address]- 7829 Apr, [facility] [place] [facility] [address] [id number] [place] [address]- 8702 Apr, [facility] [place] [facility] [address] [id number] [place] [address]- 2546 Apr, [facility] [place] [facility] [address] [id number] [place] [address]- 8527 Apr, [facility] [place] [facility] [address] [id number] [place] [address]- 0146 Apr, [facility] [place] [facility] [address] [id number] [place] [address]- 8886 Apr, [facility] [place] [facility] [address] [id number] [place] [address]- 6931 Apr, [facility] [place] [facility] [address] [id number] [place] [address]- 4346 Apr, [facility] [place] [facility] [address] [id number] [place] [address]- 9235 Apr, [facility] [place] [facility] [address] [id number] [place] [address]- 8171 Apr, [facility] [place] [facility] [address] [id number] [place] [address]- 1369 Mar, [facility] [place] [facility] [address] [id number] [place] [address]- 6770 Mar, [facility] [place] [facility] [address] [facility] [id number] [place] [address]- 1633 Mar, [facility] [place] [facility] [address] [facility] [id number] [place] [address]- 7878 Mar, [facility] [place] [facility] [address] [id number], [place] [address]- 5856 Mar, [facility] [place] [facility] [address] [id number] [place] [address]- 5478 Mar, [facility] [place] [facility] [address] [facility] [id number] [place] [address]- 2465 Jan, [facility] [place] [facility] [address] [id number] [place] [address]- 6533 Jan, [facility] [place] [facility] [address] [id number] [place] [address]- 8598 Jan, [facility] [place] [facility] [address] [id number] [place] [address]- 8858 Jan, [facility] [place] [facility] [address] [id number] [place] [address]- 4318 Jan, [facility] [place] [facility] [address] [id number] [place] [address]- 0042 Jan, [facility] [place] [facility] [address] [id number] [place] [address]- 9807 Jan, [facility] [place] [facility] [address] [id number] [place] [address]- 8481 Jan, [facility] [place] [address] [id number] [place] [address]- 7233 Jan, [facility] [place] [facility] [address] [id number] [place] [address]- 8391 Dec, [facility] [place] [facility] [address] [id number] [place] [address]- 8459 Dec, [facility] [place] [facility] [address] [id number] [place] [address]- 9564 Dec, [facility] [place] [facility] [address] [id number] [place] [address]- 6188 Dec, [facility] [place] [facility] [address] [id number] [place] [address]- 6144 Dec, [facility] [place] [facility] [address] [id number] [place] [address]- 0090 Dec, [facility] [place] [facility] [address] [id number] [place] [address]- 4497 Dec, [facility] [place] [facility] [address] [id number] [place] [address]- 4061 15 Dec, 2012 [facility] [place] [facility] [address] [id number] [place] [address]- 3294 Dec, [facility] [place] [facility] [address] [id number] [place] [address]- 4560 Dec, [facility] [place] [facility] [address] [id number] [place] [address]- 5383 Dec, [facility] [place] [facility] [address] [id number] [place] [address]- 4033 Nov, [facility] [place] [facility] [address] [id number] [place] [address]- 3305 Nov, [facility] [place] [facility] [address] [id number] [place] [address]- 2611 Nov, [facility] [place] [facility] [address] [id number] [place] [address]- 9961 Nov, [facility] [place] [facility] [address] [id number] [place] [address]- 7663 Nov, [facility] [place] [facility] [address] [id number] [place] [address]- 5736 Oct, [facility] [place] [facility] [address] [id number] [place] [address]- 0157 Oct, [facility] [place] [facility] [address] [id number] [place] [address]- 8428 Sep, [facility] [place] [facility] [address] [id number], [place] [address]- 0939 Aug, [facility] [place] [facility] [address] [id number], [place] [address]- 4213 Aug, [facility] [place] [facility] [address] [id number] [place] [address]- 2575 Aug, [facility] [place] [facility] [address] [id number] [place] [address]- 6581 Aug, [facility] [place] [facility] [address] [id number] [place] [address]- 3849 Jul, [facility] [place] [facility] [address] [id number] [place] [address]- 8504 Jul, [facility] [address] [id number] [place] [address]- 3489 June, [facility] [address] [id number] [place] [address]- 0726 June, [facility] [address] [id number] [place] [address]- 7865 June, [facility] [address] [id number] [place] [address]- 2736 May, [facility] [address] [id number] [place] [address]- 6552 May, [facility] [address] [id number] [place] [address]- 6817 May, [facility] [address] [id number] [place] [address]- 6597 Apr, [facility] [address] [id number] [place] [address]- 9657 18 Apr, 2012 [facility] [address] [id number] [place] [address]- 7885 15 Apr, 2012 [facility] [address] [facility] [id number] [place] [address]- 1524 14 Apr, 2012 [facility] [address] [id number] [place] [address]- 6697 Apr, [facility] [address] [id number] [place] [address]- 3561 Apr, [facility] [address] [id number] [place] [address]- 2445 Apr, [facility] [address] [id number] [place] [address]- 5786 Apr, [facility] [address] [id number] [place] [address]- 7781 Apr, [facility] [address] [id number] [place] [address]- 5145 Apr, [facility] [place] [facility] [address] [id number] [place] [address]- 3946 19 Apr, 2012 [facility] [place] [facility] [address] [id number] [place] [address] Apr, [facility] [place] [facility] [address] [id number] [place] [address] Apr, [facility] [place] [facility] [address] [id number] [place] [address] Mar, [facility] [place] [facility] [address] [id number] [place] [address] Mar, [facility] [place] [facility] [address] [id number] [place] [address] 16 Mar, 2012 [facility] [place] [facility] [address] [id number] [place] [address] Mar, [facility] [place] [facility] [address] [id number] [place] [address] Mar, [facility] [place] [facility] [address] [id number] [place] [address] Jan, [facility] [place] [facility] [address] [id number] [place] [address] 28 Jan, 2012 [facility] [place] [facility] [address] [id number] [place] [address] 22 Jan, 2012 [facility] [place] [facility] [address] [id number] [place] [address] 22 Jan, 2012 [facility] [place] [facility] [address] [id number] [place] [address] 14 Jan, 2012 [facility] [place] [facility] [address] [id number] [place] [address] 13 Jan, 2012 [facility] [place] [facility] [address] [id number] [place] [address] 164[address] 13 Jan, 2012 [facility] [address] [id number] [place] [address] 11 Jan, 2012 [facility] [place] [facility] [address] [id number] [place] [address] 06 Jan, 2012 [facility] [address] [id number] [place] [address] 06 Jan, 2012 [facility] [address] [id number] [place] [address] Jan, [facility] [address] [id number] [place] [address] Jan, [facility] [address] [id number] [place] [address] Jan, [facility] [address] [id number] [place] [address] Jan, [facility] [address] [id number] [place] [address] 118[address] 26 Jan, 2012 [facility] [address] [id number] [place] [address]66 26 Jan, 2012 [facility] [address] [facility] [id number] [place] [address] 19 Jan, 2012 [facility] [place] [facility] [address] [id number] [place] [address] 19 Jan, 2012 [facility] [address] [id number] [place] [address] 15 Jan, 2012 [facility] [place] [facility] [address] [id number] [place] [address] 15 Jan, 2012 [facility] [place] [facility] [address] [facility] [id number] [place] [address]- [address] 14 Jan, 2012 [facility] [place] [facility] [address] [id number] [place] [address]65 14 Jan, 2012 [facility] [place] [facility] [address] [id number] [place] [address] 14 Jan, 2012 [facility] [place] [facility] [address] [id number] [place] [address]- [address] 14 Jan, 2012 [facility] [place] [facility] [address] [id number] [place] [address] 07 Jan, 2012 [facility] [place] [facility] [address] [id number] [place] [address] 07 Jan, 2012 [facility] [place] [facility] [address] [id number] [place] [address] 16 Dec, 2011 [facility] [place] [facility] [address] [id number] [place] [address] 16 Dec, 2011 [facility] [place] [facility] [address] [id number] [place] [address] 13 Nov, 2011 [facility] [place] [facility] [address] [id number] [place] [address] 13 Nov, 2011 [facility] [place] [facility] [address] [id number] [place] [address]26 13 Nov, 2011 [facility] [place] [facility] [address] [id number] [place] [address] 12 Nov, 2011 [facility] [place] [facility] [address] [id number] [place] [address] 39[address] Sep, [facility] [place] [facility] [address] [id number], [place] [address] Sep, [facility] [place] [facility] [address] [id number] [place] [address] Aug, [facility] [place] [facility] [address] [id number], [place] [address] 13 Aug, 2011 [facility] [place] [facility] [address] [facility] [id number], [place] [address] Aug, [facility] [place] [facility] [address] [id number], [place] [address] Aug, [facility] [address] [id number] [place] [address] June, [facility] [address] [id number] [place] [address] June, [facility] [address] [id number] [place] [address] May, [facility] [address] [id number] [place] [address] Apr, [facility] [address] [id number] [place] [address] Apr, [facility] [address] [id number] [place] [address] 2546 Apr, [facility] [address] [id number] [place] [address] Apr, [facility] [address] [id number] [place] [address]- [address] Apr, [facility] [address] [id number] [place] [address] Apr, [facility] [address] [id number] [place] [address]- 2546 Mar, [facility] [address] [id number] [place] [address]- 2546 Mar, [facility] [place] [facility] [address] [id number] [place] [address] Mar, [facility] [address] [id number] [place] [address] Jan, [facility] [place] [facility] [address] [id number] [place] [address] 2546 Jan, [facility] [address] [facility] [id number] [place] [address] Jan, [facility] [place] [facility] [address] [id number] [place] [address] Jan, [facility] [place] [facility] [address] [id number] [place] [address] Jan, [facility] [place] [facility] [address] [id number] [place] [address] Jan, [facility] [place] [facility] [address] [id number] [place] [address] Jan, [facility] [place] [facility] [address] [id number] [place] [address] Dec, [facility] [place] [facility] [address] [id number] [place] [address] Dec, [facility] [place] [facility] [address] [id number] [place] [address] Nov, [facility] [place] [facility] [address] [id number] [place] [address] Nov, [facility] [place] [facility] [address] [id number] [place] [address] Nov, [facility] [place] [facility] [address] [id number] [place] [address] Nov, [facility] [place] [facility] [address] [id number] [place] [address] Oct, [facility] [place] [facility] [address] [id number] [place] [address] Sep, [facility] [place] [facility] [address] [id number] [place] [address] Mar, [facility] [place] [facility] [address] [id number] [place] [address] Jan, [facility] [place] [facility] [address] [id number] [place] [address] Dec, [facility] [place] [facility] [address] [id number] [place] [address] Dec, 2009 [facility] [place] [facility] [address] [id number] [place] [address] 04 Dec, 2009 [facility] [place] [facility] [address] [id number] [place] [address] Dec, [facility] [place] [facility] [address] [facility] [id number] [place] [address] 2016 26 Nov, 2009 [facility] [place] [facility] [address] [id number] [place] [address] 15 Nov, 2009 [facility] [place] [facility] [address] [id number] [place] [address] 14 Nov, 2009 [facility] [place] [facility] [address] [id number] [place] [address] 14 Nov, 2009 [facility] [place] [facility] [address] [id number] [place] [address] Oct, [facility] [place] [facility] [address] [id number], [place] [address] Jul, [facility] [place] [facility] [address] [id number], [place] [address] June, [facility] [place] [facility] [address] [facility] [id number], [place] [address] June, [facility] [place] [facility] [address] [id number], [place] [address] Apr, [facility] [place] [facility] [address] [id number], [place] [address] Mar, [facility] [place] [facility] [address] [id number], [place] [address] Jan, [facility] [place] [facility] [address] [facility] [id number], [place] [address] Jan, [facility] [place] [facility] [address] [facility] [id number], [place] [address] Dec, [facility] [place] [facility] [address] [id number], [place] [address] Dec, [facility] [address] [id number], [place] [address] Dec, [facility] [address] [id number], [place] [address] Dec, [facility] [address] [facility] [id number], [place] [address] Nov, [facility] [address] [id number], [place] [address] Jul, [place] [address] [id number], [place] [address] June, IMMUNIZATIONS No Known Immunizations SOCIAL HISTORY Never Assessed REASON FOR VISIT Medication Requests/Controlled Med Refill PLAN OF CARE VITAL SIGNS MEDICATIONS Medication Instructions Dosage Frequency Start Date End Date Duration Status Endocet 10-325 MG Orally every 4-6 hours 1 tablet as needed Apr, Active ProAir HFA 108 (90 Base) MCG/ACT Inhalation every 6 hrs 2 puffs as needed 6h Apr, Active Symbicort 160-4.5 MCG/ACT Inhalation Twice a day 2 puffs 12h 15 Apr, 2017 Active RESULTS No Results PROCEDURES No Known procedures INSTRUCTIONS MEDICATIONS ADMINISTERED No Known Medications MEDICAL (GENERAL) HISTORY Type Description Date Medical History hypertension Medical History sleep apnea-did not tolerate CPAP Medical History oxygen dependent at [facility] Medical History colonic polyps Medical [...]
--- OUTSIDE RECORDS SUMMARY | 2018-02-26 19:08 | XMS REPORT ---
Author Author [facility] Address [address] [place] [address] Care Team Providers Care [facility] Wheeler Name Role Phone GRAHAMELLIOTT HANNAHANY Unavailable PROBLEMS Type Condition ICD9-CM Code DMZ40-GY Code Onset Dates Condition Status SNOMED Code Problem Pulmonary asbestosis J61 Active 92250458 Problem Left ventricular diastolic dysfunction I51.9 Active 385881996 Problem Chronic gout, unspecified cause, unspecified site M1A.9XX0 Active 84456302 Problem Renal cyst, left N28.1 Active 22043100 Problem History of weight loss surgery Z98.84 Active 577247499 Problem Nocturnal hypoxia G47.34 Active 924464007 Problem Obstructive sleep apnea syndrome G47.33 Active 67264408 Problem History of diverticulitis Z87.19 Active 822340929845336 Problem Allergic rhinitis, unspecified allergic rhinitis type J30.9 Active 71446392 Problem Erectile dysfunction due to diseases classified elsewhere N52.1 Active 244706855 Problem Acute right-sided low back pain with right-sided sciatica M54.41 Active 776252876 Problem Psoriasis L40.9 Active 3005048 Problem Essential hypertension I10 Active 73009515 Problem Nephrolithiasis N20.0 Active 21404784 Problem Chronic prescription opiate use Z79.899 Active 680376520 Problem 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 Active 34290009 Problem Benign prostatic hyperplasia, presence of lower urinary tract symptoms unspecified, unspecified morphology N40.0 Active 608290802 Problem Moderate episode of recurrent major depressive disorder F33.1 Active 269488078 Problem Age-related osteoporosis without current pathological fracture M81.0 Active 32711798 Problem Low back pain M54.5 Active 134397198 Problem Anxiety F41.9 Active 62568442 Problem Urge incontinence N39.41 Active 381559701 Problem Hyperlipidemia, unspecified E78.5 Active 04376806 Problem Esophageal stricture K22.2 Active 43432331 Problem Cervicalgia M54.2 Active 3560714933158 Problem Primary insomnia F51.01 Active 843469379 ALLERGIES No Information ENCOUNTERS Encounter Location Date Diagnosis [facility] [place] [address] 41473- [address] Aug, [facility] [place] [id number] [place] [address] 65693- 3620 Jul, [facility] [place] [address] 73738- 5687 Jul, Anxiety F41.9 [facility] [place] [address] 45430- 7400 June, Anxiety F41.9 [facility] [place] [address] 35479- 6712 June, [facility] [place] [address] 36575- 8416 June, Low back pain M54.5 ; Chronic prescription opiate use Z79.899 ; Candidal intertrigo B37.2 ; Urge incontinence N39.41 ; Essential hypertension I10 ; Moderate episode of recurrent major depressive disorder F33.1 ; Age-related osteoporosis without current pathological fracture M81.0 and BMI 45.0-49.9, adult Z68.42 [facility] [place] [id number] [place] [address] 77727- 2315 June, [facility] [place] [id number] [place] [address] 24531- 7147 May, Anxiety F41.9 [facility] [place] [id number] [place] [address] 99413- 4915 May, [facility] [place] [address] 96176- 2744 May, [facility] [place] [id number] [place] [address] 55326- 5533 Apr, Anxiety F41.9 [facility] [place] [address] 76941- 7341 Apr, [facility] [place] [id number] [place] [address] 30196- 8057 Apr, Low back pain M54.5 [facility] [place] [id number] [place] [address] 68313- 5923 Apr, [facility] [place] [id number] [place] [address] 04163- 2308 Apr, [facility] [place] [id number] [place] [address] 19874- 6158 Apr, Anxiety F41.9 [facility] [place] [id number] [place] [address] 81002- 8755 Apr, Right groin pain R10.31 [facility] [place] [id number] [place] [address] 07201- 5161 Mar, [facility] [place] [id number] [place] [address] 33810- 4642 Mar, [facility] [place] [id number] [place] [address] 07940- 7586 Mar, Anxiety F41.9 [facility] [place] [id number] [place] [address] 85227- 7795 Mar, Low back pain M54.5 [facility] [place] [id number] [place] [address] 05899- 2776 Mar, Right groin pain R10.31 ; Low back pain M54.5 and BMI 45.0- 49.9, adult Z68.42 [facility] [place] [id number] [place] [address] 47667- 0863 Mar, [facility] [place] [id number] [place] [address] 18330- 7544 Mar, [facility] [place] [address] [address]- 8103 Mar, [facility] [id number] [place] [address] 28398 -2749 Mar, [facility] [id number] [place] [address] 24714 -7411 Mar, Cough R05 ; Pneumonia of right lower lobe due to infectious organism J18.1 and Abnormal chest x-ray R93.8 [place] [address] 58005- 6542 Mar, [facility] [place] [address] 91198- 3921 Mar, [place] [address] 24789- 2154 Jan, Anxiety F41.9 [place] [address] 26562- 9221 Jan, [place] [address] 09813- 4621 Jan, Moderate episode of recurrent major depressive disorder F33.1 [place] [address] 55365- 1559 Jan, Subacromial bursitis of right shoulder joint M75.51 ; Shortness of breath on exertion R06.02 and BMI 45.0-49.9, adult Z68.42 [place] [id number] [place] [address] 03697- 1674 Dec, Anxiety F41.9 [place] [id number] [place] [address] 80886- 6479 Dec, [place] [address] 53098- 9269 Dec, Low back pain M54.5 [place] [id number] [place] [address] 97471- 4114 Oct, Low back pain M54.5 [place] [address] 44592- 4286 Sep, [facility] [place] [address] [address]- 6871 Sep, Erectile dysfunction due to diseases classified elsewhere N52.1 [facility] [place] [id number] [place] [address] 08124- 9750 Sep, Erectile dysfunction due to diseases classified elsewhere N52.1 [facility] [place] [id number] [place] [address] 24617- 4712 Sep, [facility] [place] [id number] [place] [address] 71646- 4715 Sep, Erectile dysfunction due to diseases classified elsewhere N52.1 [facility] [place] [id number] [place] [address] 97137- 2541 Sep, Low back pain M54.5 and Anxiety F41.9 [facility] [id number] [place] [address] 50082 -6887 Aug, Acute allergic rhinitis J30.9 [facility] [place] [id number] [place] [address] 74258- 0228 Aug, [facility] [place] [id number] [place] [address] 85159- 7352 Aug, Anxiety F41.9 [facility] [place] [id number] [place] [address] 66132- 3794 Jul, Low back pain M54.5 ; Chronic prescription opiate use Z79.899 and Essential hypertension I10 [facility] [place] [id number] [place] [address] 40783- 2057 Jul, Anxiety F41.9 and Low back pain M54.5 [facility] [place] [id number] [place] [address] 31846- 8997 June, [facility] [place] [id number] [place] [address] 63988- 6463 June, Anxiety F41.9 [facility] [place] [address] [address]- 4067 May, Low back pain M54.5 [facility] [place] [id number] [place] [address] 67917- 5396 May, [facility] [place] [id number] [place] [address] 27685 2546 May, Anxiety F41.9 [facility] [place] [id number] [place] [address] 90036- 7556 Apr, [facility] [place] [id number] [place] [address] 78664- 9469 Apr, Low back pain M54.5 [facility] [place] [id number] [place] [address] 85070- 4186 Apr, Moderate episode of recurrent major depressive disorder F33.1 [facility] [place] [id number] [place] [address] 06902 2546 Apr, Anxiety F41.9 [facility] [place] [id number] [place] [address] 99288- 8313 Apr, Low back pain M54.5 [facility] [place] [id number] [place] [address] 36765 2546 15 Apr, 2016 Elevated alkaline phosphatase level R74.8 [facility] [place] [id number] [place] [address] 16584 2546 10 Apr, 2016 Alkaline phosphatase elevation R74.8 [facility] [place] [id number] [place] [address] 90130 2546 06 Apr, 2016 Anxiety F41.9 [facility] [place] [id number] [place] [address] 33009 2546 Apr, Low back pain M54.5 [facility] [place] [id number] [place] [address] 87138 2546 Apr, History of weight loss surgery Z98.84 ; Encounter for hepatitis C screening test for low risk patient Z11.59 ; History of herpes genitalis Z86.19 ; Essential hypertension I10 ; Hyperlipidemia, unspecified E78.5 ; Exposure to STD Z20.2 and Benign prostatic hyperplasia, presence of lower urinary tract symptoms unspecified, unspecified morphology N40.0 [facility] [place] [id number] [place] [address] 65555- 5739 02 Apr, 2016 [place] [address] 20805- 7304 Mar, [place] [id number] [place] [address] 21992- 2118 Mar, [place] [id number] [place] [address] 57618- 4507 Mar, [place] [id number] [place] [address] 23028- 5899 Mar, Acute right-sided low back pain with right-sided sciatica M54.41 [place] [id number] [place] [address] 26711- 1194 Mar, Low back pain M54.5 [facility] [id number] [place] [address] 53957 -1466 Mar, Muscle strain of chest wall, initial encounter S29.011A ; Muscle strain of right thigh, initial encounter S76.911A and Acute non- recurrent maxillary sinusitis J01.00 [place] [id number] [place] [address] 24555- 6769 Mar, Benign prostatic hyperplasia, presence of lower urinary tract symptoms unspecified, unspecified morphology N40.0 [place] [id number] [place] [address] 22311- 7425 Jan, Low back pain M54.5 [facility] [place] [id number] [place] [address] 80524- 9068 Jan, Low back pain M54.5 ; Essential hypertension I10 ; Hyperlipidemia, unspecified E78.5 ; Anxiety F41.9 ; Moderate episode of recurrent major depressive disorder F33.1 ; Primary insomnia F51.01 ; Exposure to STD Z20.2 ; Encounter for hepatitis C screening test for low risk patient Z11.59 and History of herpes genitalis Z86.19 [facility] [place] [id number] [place] [address] 61692- 4822 17 Jan, 2016 [facility] [place] [address] 29799- 2206 20 Dec, 2015 [facility] [place] [address] 63951- 9306 14 Dec, 2015 Anxiety F41.9 ; Cervicalgia M54.2 ; Moderate episode of recurrent major depressive disorder F33.1 and Encounter for immunization Z23 [facility] [place] [id number] [place] [address] 60878- 7998 Oct, [facility] [place] [address] 11509- 3525 Oct, [facility] [place] [id number] [place] [address] 63030- 2357 16 Nov, 2015 [facility] [place] [address] 23741- 9789 09 Nov, 2015 [facility] [place] [id number] [place] [address] 44734- 0696 Sep, [facility] [place] [id number] [place] [address] 93559- 5308 Aug, Low back pain M54.5 ; Anxiety F41.9 ; Primary insomnia F51.01 and Chronic prescription opiate use Z79.899 [facility] [place] [id number] [place] [address] 91766- 3807 Jul, [facility] [place] [id number] [place] [address] 84194- 9340 Jul, [facility] [place] [id number] [place] [address] 44185- 1612 Jul, [facility] [place] [address] [facility] [id number] [address]- 4972 Jul, [facility] [place] [id number] [place] [address] 79318- 0001 Jul, [facility] [place] [address], [place] [address]- 7564 June, [facility] [place] [id number] [place] [address] 01809- 8798 June, [facility] [place] [address] [facility] [id number] [place] [address] 12627- 3348 June, [facility] [place] [id number] [place] [address], [place] [address]- 2341 June, [facility] [place] [id number] [place] [address] 13238- 5974 May, Preoperative cardiovascular examination Z01.810 [facility] [place] [address], [place] [address]- 7629 May, [facility] [place] [id number] [place] [address] 54794- 8415 Apr, [facility] [place] [id number] [place] [address] 70118- 4011 Apr, Osteoarthritis of right knee M17.9 [facility] [place] [address], [place] [address]- 0482 30 May, 2015 [facility] [place] [address], [place] [address]- 8598 16 May, 2015 [facility] [place] [address], [place] [address]- 9444 Apr, [facility] [place] [id number] [address]- 4058 Apr, [facility] [place] [address], [place] [address]- 4129 08 Apr, 2016 History of excessive cerumen Z78.9 ; Obstructive sleep apnea syndrome G47.33 ; History of diverticulitis Z87.19 and Nephrolithiasis N20.0 [place] [id number] [place] [address] 05223- 1354 29 Apr, 2015 [facility] [id number] [place] [address] 34734 -7150 23 Apr, 2015 Abdominal pain R10.9 [place] [address] 20049- 1092 10 Apr, 2015 [place] [address] 24125- 3395 04 Apr, 2015 Osteoarthritis of right knee M17.9 [place] [id number] [place] [address] 01076- 3592 Mar, [place] [address] 97987- 5393 15 Mar, 2015 [place] [id number] [place] [address] 70928- 3587 Mar, [place] [id number] [place] [address] 84508- 4444 Mar, [facility] [id number] [place] [address] 08043 -6941 Mar, Pyelonephritis N12 ; Left-sided thoracic back pain M54.6 ; Hematuria, unspecified R31.9 and Kidney stone N20.0 [place] [id number] [place] [address] 56546- 2799 12 Mar, 2015 History of weight loss surgery Z98.84 [place] [address] 12969- 9784 07 Mar, 2015 History of weight loss surgery Z98.84 and Hyperlipidemia, unspecified E78.5 [place] [id number] [place] [address] 09074- 5926 Mar, Low back pain M54.5 ; Chronic prescription opiate use Z79.899 ; Hyperlipidemia, unspecified E78.5 ; Spasm of back muscles M62.830 and History of weight loss surgery Z98.84 [facility] [place] [id number] [place] [address] 21211- 8836 Jan, [facility] [place] [id number] [place] [address] 41169- 7819 Jan, [facility] [place] [id number] [place] [address] 15933- 1548 Jan, [facility] [place] [id number] [place] [address] 37635- 9944 Dec, [facility] [place] [id number] [place] [address] 01990- 9704 Dec, [facility] [place] [id number] [place] [address] 00707- 8958 Dec, [facility] [place] [id number] [place] [address] 63181- 5256 Nov, [facility] [place] [id number] [place] [address] 32188- 9029 Nov, Obstructive sleep apnea syndrome G47.33 and Pharyngoesophageal dysphagia R13.14 [facility] [place] [id number] [place] [address] [phone] Nov, [facility] [place], [facility] [id number] [place] [address] [phone] Nov, [facility] [place], [facility] [id number] [place] [address] [phone] Nov, [facility] [id number] [place] [address] [id number] Oct, Dental examination V72.2 [facility] [place], [facility] [id number] [place] [address] [phone] Oct, [facility] [place], [facility] [id number] [place] [address] [phone] Oct, [facility] [place], [facility] [id number] [phone] Oct, [facility] [place], [facility] [id number] [place] [address] [phone] Oct, [facility] [place] [id number] [place] [address] [phone] Oct, BPH (benign prostatic hyperplasia) 600.00 and Urinary frequency 788.41 [facility] [place] [id number] [place] [address] [phone] Oct, [facility] [place] [id number] [place] [address] [phone] Oct, [facility] [place] [id number] [place] [address] [phone] Oct, [facility] [place] [id number] [place] [address] [phone] Sep, Cerumen impaction 380.4 ; Cerumen debris on tympanic membrane 380.4 ; Psoriasis 696.1 and MICKY (secretory otitis media) 381.4 [facility] [id number] [place] [id number] Sep, Dental examination V72.2 [facility] [place] [id number] [place] [address]- 2342 Sep, Fatigue 780.79 ; Irritable bowel syndrome 564.1 ; Overweight 278.02 ; Poor sleep V69.4 ; Shaking spells 781.0 and Broken tooth 873.63 [facility] [place] [id number] [place] [address]- 1059 Sep, [facility] [place] [id number] [place] [address]62- 0122 Sep, [facility] [place] [id number] [place] [address]- 3209 Aug, [facility] [place] [address] [facility] [id number] [place] [address] Jul, [facility] [place] [address] [facility] [id number] [place] [address] 0257 Jul, [facility] [place] [address] [facility] [id number] [place] [address]- 8466 Jul, [facility] [place] [address] [id number] [place] [address]- 1490 Jul, [facility] [place] [address] [facility] [id number] [place] [address]- 6601 June, Arthritis of knee, right 716.96 [facility] [place] [address] [facility] [id number] [place] [address] 6[address] June, [facility] [place] [id number] [place] [address] 134[address] June, Elevated blood pressure reading without diagnosis of hypertension 796.2 [facility] [place] [id number] [place] [address]- [address]45 June, [facility] [place] [address] [id number] [place] [address]- 6552 June, [facility] [place] [address] [id number] [place] [address]- 4019 June, [facility] [place] [address] [id number] [place] [address]- 6610 June, [facility] [place] [address] [facility] [id number] [place] [address]- 8244 May, [facility] [place] [address] [id number] [place] [address]- 3644 May, [facility] [place] [address] [facility] [id number] [place] [address]- 4078 Apr, [facility] [place] [address] [id number] [address]- 0668 Apr, [facility] [place] [facility] [address] [id number] [place] [address]- 4354 Apr, [facility] [place] [facility] [address] [id number] [place] [address]- 1499 Apr, [facility] [place] [facility] [address] [id number] [place] [address]- 7443 Apr, [facility] [place] [facility] [address] [id number] [place] [address]- 2548 Apr, [facility] [place] [facility] [address] [id number] [place] [address]- 2634 Apr, [facility] [place] [facility] [address] [id number] [place] [address]- 5745 Apr, [facility] [place] [facility] [address] [facility] [id number] [place] [address]- 4100 Apr, [facility] [place] [facility] [address] [id number] [place] [address]- 4689 Apr, [facility] [place] [facility] [address] [id number] [place] [address]- 4898 Apr, [facility] [place] [facility] [address] [facility] [id number] [place] [address]- 6926 Apr, [facility] [place] [facility] [address] [facility] [id number] [place] [address]- 2497 Apr, 2014 [facility] [place] [facility] [address] [id number] [address]- 9434 Apr, 2014 [facility] [place] [facility] [address] [id number] [place] [address]- 7052 Apr, [facility] [place] [facility] [address] [id number] [place] [address]- 6693 Apr, 2014 [facility] [place] [facility] [address] [facility] [id number] [place] [address]- 8418 Apr, 2014 [facility] [place] [facility] [address] [facility] [id number], [place] [address]- 3565 20 Apr, 2014 [facility] [place] [facility] [address] [id number] [place] [address]- 3748 18 Apr, 2014 [facility] [place] [facility] [address] [facility] [id number] [place] [address]- 5352 18 Apr, 2014 [facility] [place] [facility] [address] [facility] [id number] [place] [address]- 6940 13 Apr, 2014 [facility] [place] [facility] [address] [facility] [id number] [place] [address]- 4968 Apr, 2014 [facility] [place] [facility] [address] [facility] [id number] [place] [address]- 1001 Apr, 2014 [facility] [place] [facility] [address] [id number] [place] [address]- 0270 Apr, 2014 [facility] [place] [facility] [address] [id number] [place] [address]- 1793 12 Apr, 2014 [facility] [place] [facility] [address] [facility] [id number] [place] [address]- 7938 Apr, 2014 [facility] [place] [facility] [address] [id number] [place] [address]- 0296 Apr, 2014 [facility] [place] [facility] [address] [id number] [place] [address]- 6427 Apr, 2014 [facility] [place] [facility] [address] [facility] [id number] [place] [address]- 3407 Apr, 2014 [facility] [place] [facility] [address] [facility] [id number] [place] [address]- 4930 Apr, 2014 [facility] [place] [facility] [address] [facility] [id number] [place] [address]- 2919 Apr, 2014 [facility] [place] [facility] [address] [facility] [id number], [place] [address]- 1992 Apr, 2014 [facility] [place] [facility] [address] [address]- 2456 Apr, [facility] [address] [id number] [place] [address]- 4256 Mar, [facility] [place] [facility] [address] [id number] [place] [address]- 1258 Mar, [facility] [place] [facility] [address] [id number] [place] [address]- 7982 Mar, [facility] [place] [facility] [address] [id number] [place] [address]- 5343 Mar, [facility] [place] [facility] [address] [id number] [place] [address]- 2471 Mar, [facility] [place] [facility] [address] [id number] [place] [address]- 7940 Mar, [facility] [place] [facility] [address] [id number] [place] [address]- 2564 Mar, [facility] [place] [facility] [address] [id number] [place] [address]- 7384 Mar, [facility] [place] [facility] [address] [id number] [place] [address]- 7234 Mar, [facility] [place] [facility] [address] [id number] [place] [address]- 3594 Mar, [facility] [place] [facility] [address] [id number] [place] [address]- 0746 Jan, [facility] [place] [facility] [address] [id number] [place] [address]- 0417 Jan, [facility] [place] [facility] [address] [id number] [place] [address]- 0592 Jan, [facility] [place] [facility] [address] [id number] [place] [address]- 4916 Jan, [facility] [place] [facility] [address] [id number] [place] [address]- 0944 Jan, [facility] [place] [facility] [address] [id number] [place] [address]- 4282 Jan, [facility] [place] [facility] [address] [id number] [place] [address]- 0469 Jan, [facility] [place] [facility] [address] [id number] [place] [address]- 6255 Jan, [facility] [place] [facility] [address] [id number] [place] [address]- 4978 Jan, [facility] [place] [facility] [address] [id number] [place] [address]- 6449 Jan, [facility] [place] [facility] [address] [id number] [place] [address]- 7609 Jan, [facility] [place] [facility] [address] [id number] [place] [address]- 1202 Jan, [facility] [place] [facility] [address] [id number] [place] [address]- 9723 Dec, [facility] [place] [facility] [address] [id number] [place] [address]- 9782 Dec, [facility] [place] [facility] [address] [id number] [place] [address]- 2464 Dec, [facility] [place] [facility] [address] [id number] [place] [address]- 5812 Dec, [facility] [place] [facility] [address] [id number] [place] [address]- 1856 Dec, [facility] [place] [facility] [address] [id number] [place] [address]- 0561 Dec, [facility] [place] [facility] [address] [id number] [place] [address]- 1956 Dec, [facility] [place] [facility] [address] [id number] [place] [address]- 6611 Dec, [facility] [place] [facility] [address] [id number] [place] [address]- 7144 Dec, [facility] [place] [facility] [address] [id number] [place] [address]- 0581 Dec, [facility] [place] [facility] [address] [id number] [place] [address]- 1249 Nov, [facility] [place] [facility] [address] [id number] [place] [address]- 7389 Nov, [facility] [place] [facility] [address] [id number] [place] [address]- 3826 Nov, [facility] [place] [facility] [address] [id number] [place] [address]- 7389 Nov, [facility] [place] [facility] [address] [id number] [place] [address]- 5926 Nov, [facility] [place] [facility] [address] [id number] [place] [address]- 4507 Nov, [facility] [place] [facility] [address] [id number] [place] [address]- 4329 Nov, [facility] [place] [facility] [address] [id number] [place] [address]- 6793 Nov, [facility] [place] [facility] [address] [id number], [place] [address]- 1311 Nov, [facility] [place] [facility] [address] [id number], [place] [address]- 2039 24 Nov, 2013 [facility] [place] [facility] [address] [id number], [place] [address]- 5500 Nov, [facility] [place] [facility] [address] [id number] [place] [address]- 1461 17 Nov, 2013 [facility] [place] [facility] [address] [id number], [place] [address]- 9922 Nov, [facility] [place] [facility] [address] [id number], [place] [address]- 4104 14 Nov, 2013 [facility] [place] [facility] [address] [id number][place] [address]- 4464 Nov, [facility] [place] [facility] [address] [id number] [place] [address]- 8694 10 Nov, 2013 [facility] [place] [facility] [address] [id number] [place] [address]- 7782 Nov, [facility] [place] [facility] [address] [id number] [place] [address]- 3649 Nov, [facility] [place] [facility] [address] [id number] [place] [address]- 7428 Nov, [facility] [place] [facility] [address] [id number] [place] [address]- 6655 Nov, [facility] [place] [facility] [address] [id number] [place] [address]- 0379 Oct, 2013 [facility] [place] [facility] [address] [id number] [place] [address]- 1361 26 Oct, 2013 [facility] [place] [facility] [address] [id number] [place] [address]- 0502 19 Oct, 2013 [facility] [place] [facility] [address] [id number] [place] [address]- 7829 19 Oct, 2013 [facility] [place] [facility] [address] [facility] [id number] [place] [address]- 4798 12 Oct, 2013 [facility] [place] [facility] [address] [id number], [place] [address]- 3514 12 Oct, 2013 [facility] [place] [facility] [address] [id number], [place] [address]- 2541 10 Oct, 2013 [facility] [place] [facility] [address] [id number] [place] [address]- 3790 10 Oct, 2013 [facility] [place] [facility] [address] [facility] [id number], [place] [address]- 9887 08 Oct, 2013 [facility] [place] [facility] [address] [facility] [id number] [place] [address]- 7540 08 Oct, 2013 [facility] [place] [facility] [address] [id number] [place] [address]- 1953 Sep, [facility] [place] [facility] [address] [id number] [place] [address]- 5622 Sep, [facility] [place] [facility] [address] [id number] [place] [address]- 5669 Sep, [facility] [place] [facility] [address] [id number] [place] [address]- 6578 Sep, [facility] [place] [facility] [address] [id number] [place] [address]- 0915 Sep, [facility] [place] [facility] [address] [id number] [place] [address]- 6399 Sep, [facility] [place] [facility] [address] [id number] [place] [address]- 4082 Sep, [facility] [place] [facility] [address] [id number] [place] [address]- 5630 Sep, [facility] [place] [facility] [address] [id number] [place] [address]- 3251 Sep, [facility] [place] [facility] [address] [id number] [place] [address]- 6747 Sep, [facility] [place] [facility] [address] [id number] [place] [address]- 1528 Sep, [facility] [place] [facility] [address] [id number] [place] [address]- 2666 Sep, [facility] [place] [facility] [address] [id number] [place] [address]- 7334 Sep, [facility] [place] [facility] [address] [id number] [place] [address]- 9543 Sep, [facility] [place] [facility] [address] [id number] [place] [address]- 4773 Sep, [facility] [place] [facility] [address] [id number] [place] [address]- 6287 Sep, [facility] [place] [facility] [address] [id number] [place] [address]- 4328 Sep, [facility] [place] [facility] [address] [id number] [place] [address]- 5730 Sep, [facility] [place] [facility] [address] [id number] [place] [address]- 3431 Sep, [facility] [place] [facility] [address] [id number] [place] [address]- 9134 Sep, [facility] [place] [facility] [address] [id number] [place] [address]- 9257 Sep, [facility] [place] [facility] [address] [id number] [place] [address]- 7385 Sep, [facility] [place] [facility] [address] [id number] [place] [address]- 3707 Sep, [facility] [place] [facility] [address] [id number] [place] [address]- 0206 Sep, [facility] [place] [facility] [address] [id number] [place] [address]- 7532 Sep, [facility] [place] [facility] [address] [id number] [place] [address]- 7331 Aug, [facility] [place] [facility] [address] [id number] [place] [address]- 3932 Aug, [facility] [place] [facility] [address] [id number] [place] [address]- 3466 Aug, [facility] [place] [facility] [address] [id number] [place] [address]- 8884 Aug, [facility] [place] [facility] [address] [id number] [place] [address]- 3784 Aug, [facility] [place] [facility] [address] [id number] [place] [address]- 0724 Aug, [facility] [place] [facility] [address] [id number] [place] [address]- 7654 Aug, [facility] [place] [facility] [address] [id number] [place] [address]- 1409 Aug, [facility] [place] [facility] [address] [id number] [place] [address]- 4604 Aug, [facility] [place] [facility] [address] [id number] [place] [address]- 2079 Aug, [facility] [place] [facility] [address] [id number] [place] [address]- 4355 Aug, [facility] [place] [facility] [address] [id number] [place] [address]- 8567 Aug, [facility] [place] [facility] [address] [id number] [place] [address]- 5868 Aug, [facility] [place] [facility] [address] [id number] [place] [address]- 2614 Jul, [facility] [place] [facility] [address] [id number] [place] [address]- 9026 Jul, [facility] [place] [facility] [address] [id number] [place] [address]- 6240 Jul, [facility] [place] [facility] [address] [id number] [place] [address]- 5428 Jul, [facility] [place] [facility] [address] [id number] [place] [address]- 8745 Jul, [facility] [place] [facility] [address] [id number] [place] [address]- 2152 Jul, [facility] [place] [facility] [address] [id number] [place] [address]- 5147 Jul, [facility] [place] [facility] [address] [id number] [place] [address]- 4536 June, [facility] [place] [facility] [address] [id number] [place] [address]- 7418 June, [facility] [place] [facility] [address] [id number] [place] [address]- 0393 June, [facility] [place] [facility] [address] [id number] [place] [address]- 5571 June, [facility] [place] [facility] [address] [id number] [place] [address]- 8505 May, [facility] [place] [facility] [address] [id number] [place] [address]- 7149 May, [facility] [place] [facility] [address] [id number] [place] [address]- 0894 May, [facility] [place] [facility] [address] [id number] [place] [address]- 8498 May, [facility] [place] [facility] [address] [id number] [place] [address]- 0646 May, [facility] [place] [facility] [address] [id number] [place] [address]- 9057 May, [facility] [place] [facility] [address] [id number] [place] [address]- 1980 May, [facility] [place] [facility] [address] [id number] [place] [address]- 4747 May, [facility] [place] [facility] [address] [id number] [place] [address]- 1620 May, [facility] [place] [facility] [address] [id number] [place] [address]- 9576 May, [facility] [place] [facility] [address] [id number] [place] [address]- 1139 Apr, [facility] [place] [facility] [address] [id number] [place] [address]- 0347 Apr, [facility] [place] [facility] [address] [id number] [place] [address]- 2950 Apr, [facility] [place] [facility] [address] [id number] [place] [address]- 2546 Apr, [facility] [place] [facility] [address] [id number] [place] [address]- 6996 Apr, [facility] [place] [facility] [address] [id number] [place] [address]- 0436 Apr, [facility] [place] [facility] [address] [id number] [place] [address]- 1126 Apr, [facility] [place] [facility] [address] [id number] [place] [address]- 2611 Apr, [facility] [place] [facility] [address] [id number] [place] [address] Apr, [facility] [place] [facility] [address] [id number] [place] [address] Apr, [facility] [place] [facility] [address] [id number] [place] [address] Mar, [facility] [place] [facility] [address] [id number] [place] [address] Mar, [facility] [place] [facility] [address] [id number] [place] [address] Mar, [facility] [place] [facility] [address] [facility] [id number] [place] [address] Mar, [facility] [place] [facility] [address] [id number] [place] [address] Mar, [facility] [place] [facility] [address] [id number] [place] [address] Mar, [facility] [place] [facility] [address] [id number] [place] [address] Jan, [facility] [place] [facility] [address] [id number] [place] [address] Jan, [facility] [place] [facility] [address] [id number] [place] [address] Jan, [facility] [place] [facility] [address] [id number] [place] [address] Jan, [facility] [place] [facility] [address] [id number] [place] [address] Jan, [facility] [place] [facility] [address] [id number] [place] [address] Jan, [facility] [place] [facility] [address] [id number] [place] [address] Jan, [facility] [place] [facility] [address] [id number] [place] [address] 79[address] Jan, [facility] [place] [facility] [address] [id number] [place] [address] Jan, [facility] [place] [facility] [address] [id number] [place] [address] Dec, [facility] [place] [facility] [address] [id number] [place] [address] Dec, [facility] [place] [facility] [address] [id number] [place] [address] Dec, [facility] [place] [facility] [address] [id number] [place] [address] Dec, [facility] [place] [facility] [address] [id number] [place] [address] Dec, [facility] [place] [facility] [address] [id number] [place] [address] Dec, [facility] [place] [facility] [address] [id number] [place] [address] 15 Dec, 2012 [facility] [place] [facility] [address] [id number] [place] [address] Dec, [facility] [place] [facility] [address] [id number] [place] [address] 05 Dec, 2012 [facility] [place] [facility] [address] [id number], [place] [address] Dec, [facility] [place] [facility] [address] [id number] [place] [address] Dec, [facility] [place] [facility] [address] [id number] [place] [address] Nov, [facility] [place] [facility] [address] [id number] [place] [address] 25[address] Nov, [facility] [place] [facility] [address] [id number] [place] [address] Nov, [facility] [place] [facility] [address] [id number] [place] [address] 48[address] Nov, [facility] [place] [facility] [address] [id number] [place] [address] Nov, [facility] [place] [facility] [address] [id number] [place] [address] Oct, [facility] [place] [facility] [address] [id number] [place] [address] Oct, [facility] [place] [facility] [address] [id number] [place] [address]- [address] Sep, [facility] [place] [facility] [address] [id number] [place] [address] Aug, [facility] [place] [facility] [address] [id number], [place] [address] Aug, [facility] [place] [facility] [address] [id number], [place] [address] Aug, [facility] [place] [facility] [address] [id number] [place] [address] 2544 Aug, [facility] [place] [facility] [address] [id number], [place] [address] Jul, [facility] [place] [facility] [address] [id number] [place] [address] Jul, [facility] [place] [facility] [address] [id number] [place] [address] June, [facility] [address] [id number] [place] [address] June, [facility] [address] [id number] [place] [address] June, [facility] [address] [id number] [place] [address] May, [facility] [address] [id number] [place] [address] May, [facility] [address] [id number] [place] [address] 45[address] May, [facility] [address] [id number] [place] [address] 46[address] Apr, [facility] [address] [id number] [place] [address] 8527 Apr, [facility] [address] [id number] [place] [address] 15 Apr, 2012 [facility] [address] [id number] [place] [address]- [address] 14 Apr, 2012 [facility] [address] [facility] [id number] [place] [address] 49[address] Apr, [facility] [address] [id number] [place] [address] 8810 Apr, [facility] [address] [id number] [place] [address] 74[address] Apr, [facility] [address] [id number] [place] [address] 9646 Apr, [facility] [address] [id number] [place] [address] 2451 Apr, [facility] [address] [id number] [place] [address] 9061 Apr, [facility] [place] [facility] [address] [id number] [place] [address] 71[address] Apr, [facility] [place] [facility] [address] [id number] [place] [address] 9216 Apr, [facility] [place] [facility] [address] [id number] [place] [address]796 Apr, [facility] [place] [facility] [address] [id number] [place] [address] Mar, [facility] [place] [facility] [address] [id number] [place] [address]- 8926 Mar, [facility] [place] [facility] [address] [id number] [place] [address]- 9575 Mar, [facility] [place] [facility] [address] [id number] [place] [address]- [address] Mar, [facility] [place] [facility] [address] [id number] [place] [address]- 07[address] Mar, [facility] [place] [facility] [address] [id number] [place] [address]- 90[address] Jan, [facility] [place] [facility] [address] [address] [id number] [place] [address] 28 Jan, 2012 [facility] [place] [facility] [address] [id number] [place] [address] 22 Jan, 2012 [facility] [place] [facility] [address] [id number] [place] [address] 22 Jan, 2012 [facility] [place] [facility] [address] [id number] [place] [address] 14 Jan, 2012 [facility] [place] [facility] [address] [id number] [place] [address] 13 Jan, 2012 [facility] [place] [facility] [address] [id number] [place] [address] 0221 13 Jan, 2012 [facility] [place] [facility] [address] [id number] [place] [address] 1898 11 Jan, 2012 [facility] [address] [id number] [place] [address] 9699 06 Jan, 2012 [facility] [place] [facility] [address] [id number] [place] [address] 06 Jan, 2012 [facility] [address] [id number] [place] [address] Jan, [facility] [place] [facility] [address] [id number] [place] [address] Jan, [facility] [address] [id number] [place] [address] Jan, [facility] [address] [id number] [place] [address] 9869 Jan, [facility] [place] [facility] [address] [id number] [place] [address] 9708 Dec, [facility] [address] [id number] [place] [address] 0[address] 26 Jan, 2012 [facility] [place] [facility] [address] [id number] [place] [address] 7031 19 Jan, 2012 [facility] [address] [facility] [id number] [place] [address] 6430 19 Jan, 2012 [facility] [place] [facility] [address] [id number] [place] [address] 9352 15 Jan, 2012 [facility] [place] [facility] [address] [id number] [place] [address] 4725 15 Jan, 2012 [facility] [place] [facility] [address] [id number] [place] [address] 6852 14 Jan, 2012 [facility] [place] [facility] [address] [id number] [place] [address] 4589 14 Jan, 2012 [facility] [place] [facility] [address] [id number] [place] [address] 8527 14 Jan, 2012 [facility] [place] [facility] [address] [id number] [place] [address] 4328 14 Jan, 2012 [facility] [place] [facility] [address] [id number] [place] [address]- 7574 07 Jan, 2012 [facility] [place] [facility] [address] [id number] [place] [address] 3223 07 Jan, 2012 [facility] [place] [facility] [address] [id number] [place] [address]- 2641 16 Dec, 2011 [facility] [place] [facility] [address] [id number] [place] [address]- 8951 16 Dec, 2011 [facility] [place] [facility] [address] [id number] [place] [address] 5569 13 Nov, 2011 [facility] [place] [facility] [address] [id number] [place] [address] 9448 13 Nov, 2011 [facility] [place] [facility] [address] [id number] [place] [address] 4160 13 Nov, 2011 [facility] [place] [facility] [address] [id number] [place] [address] 4234 12 Nov, 2011 [facility] [place] [facility] [address] [id number] [place] [address] 3938 30 Oct, 2011 [facility] [place] [facility] [address] [id number] [place] [address] 8336 Sep, [facility] [place] [facility] [address] [id number], [place] [address] 23 Aug, 2011 [facility] [place] [facility] [address] [id number] [place] [address] 3704 Aug, [facility] [place] [facility] [address] [id number], [place] [address] Aug, [facility] [place] [facility] [address] [id number], [place] [address] Aug, [facility] [place] [facility] [address] [id number], [place] [address] 2546 June, [facility] [address] [id number] [place] [address] 2546 June, [facility] [address] [id number] [place] [address] 6326 May, [facility] [address] [id number] [place] [address] 0426 Apr, [facility] [address] [id number] [place] [address] 8266 Apr, [facility] [address] [id number] [place] [address]- 2546 Apr, [facility] [address] [id number] [place] [address] 2546 Apr, [facility] [address] [facility] [id number] [place] [address]- 8686 Apr, [facility] [address] [id number] [place] [address]- 4626 Apr, [facility] [address] [facility] [id number] [place] [address] 7826 Mar, [facility] [address] [facility] [id number] [place] [address] 4086 Mar, [facility] [address] [facility] [id number] [place] [address] 6456 Mar, [facility] [place] [facility] [address] [id number] [place] [address]- 1436 Jan, [facility] [place] [facility] [address] [id number] [place] [address]- 1796 Jan, [facility] [place] [facility] [address] [facility] [id number] [place] [address]- 1046 Jan, [facility] [place] [facility] [address] [facility] [id number] [place] [address]- 2776 Jan, [facility] [place] [facility] [address] [id number] [place] [address]- 7886 Jan, [facility] [place] [facility] [address] [id number] [place] [address] Jan, [facility] [place] [facility] [address] [id number] [place] [address]- 0557 Jan, [facility] [place] [facility] [address] [id number] [place] [address]- 9683 Dec, [facility] [place] [facility] [address] [id number] [place] [address]- 7206 Dec, [facility] [place] [facility] [address] [id number] [place] [address] 4067 Nov, [facility] [place] [facility] [address] [id number] [place] [address] 6243 Nov, [facility] [place] [facility] [address] [id number] [place] [address] 2586 Nov, [facility] [place] [facility] [address] [id number] [place] [address] 0939 Nov, [facility] [place] [facility] [address] [id number] [place] [address] 4238 Oct, [facility] [place] [facility] [address] [id number] [place] [address] 2280 Sep, [facility] [place] [facility] [address] [id number] [place] [address] 3259 Mar, [facility] [place] [facility] [address] [id number] [place] [address] 8716 Jan, [facility] [place] [facility] [address] [id number] [place] [address] 8097 Dec, [facility] [place] [facility] [address] [id number] [place] [address] 2546 Dec, [facility] [place] [facility] [address] [id number] [place] [address]- 6324 04 Dec, 2009 [facility] [address] [id number] [place] [address]- 6971 Dec, [facility] [place] [facility] [address] [id number] [place] [address]- 5196 26 Nov, 2009 [facility] [place] [facility] [address] [facility] [id number] [place] [address]- 5816 15 Nov, 2009 [facility] [place] [facility] [address] [id number] [place] [address]- 6189 14 Nov, 2009 [facility] [place] [facility] [address] [id number] [place] [address]- 9663 14 Nov, 2009 [facility] [place] [facility] [address] [id number] [place] [address]- 1907 13 Oct, 2009 [facility] [place] [facility] [address] [id number] [place] [address]- 1825 17 Jul, 2009 [facility] [place] [facility] [address] [id number], [place] [address] 4700 June, [facility] [place] [facility] [address] [id number] [place] [address] 8132 June, [facility] [place] [facility] [address] [facility] [id number], [place] [address] 0179 17 Apr, 2009 [facility] [place] [facility] [address] [id number], [place] [address] 4924 Mar, [facility] [place] [facility] [address] [id number], [place] [address]- 4728 Jan, [facility] [place] [facility] [address] [id number], [place] [address] 5356 Jan, [facility] [place] [facility] [address] [facility] [id number], [place] [address]- 8053 Dec, [facility] [place] [facility] [address] [facility] [id number], [place] [address] 1897 Dec, [facility] [place] [facility] [address] [facility] [id number] [place] [address]- 1721 Dec, [facility] [place] [address] [facility] [id number][place] [address] Dec, [facility] [place] [address] [facility] [id number], [place] [address] 4320 Nov, [facility] [place] [address] [facility] [id number][place] [address] Jul, [facility] [place] [address] [facility] [id number][place] [address] June, IMMUNIZATIONS No Known Immunizations SOCIAL HISTORY Never Assessed REASON FOR VISIT Refill Request PLAN OF CARE VITAL SIGNS MEDICATIONS Medication [...]
--- OUTSIDE RECORDS SUMMARY | 2018-02-26 19:09 | XMS REPORT ---
Author Author [facility]AS [facility]IO [facility] Address [address] [place] [address] Care Team Providers Care Transcribing Operator Head Name Role Phone PARAS NAZARIO Unavailable PROBLEMS Type Condition ICD9-CM Code ECV08-LF Code Onset Dates Condition Status SNOMED Code Problem Pulmonary asbestosis J61 Active 19017953 Problem Left ventricular diastolic dysfunction I51.9 Active 469213384 Problem Chronic gout, unspecified cause, unspecified site [id number].[id number] Active 34410127 Problem Renal cyst, left N28.1 Active 97477401 Problem History of weight loss surgery Z98.84 Active 906862470 Problem Nocturnal hypoxia G47.34 Active 295202962 Problem Obstructive sleep apnea syndrome G47.33 Active 36751505 Problem History of diverticulitis Z87.19 Active 104930032542732 Problem Allergic rhinitis, unspecified allergic rhinitis type J30.9 Active 49793063 Problem Erectile dysfunction due to diseases classified elsewhere N52.1 Active 291190373 Problem Acute right-sided low back pain with right-sided sciatica M54.41 Active 110008987 Problem Psoriasis L40.9 Active 3975256 Problem Essential hypertension I10 Active 06297718 Problem Nephrolithiasis N20.0 Active 43365533 Problem Chronic prescription opiate use Z79.899 Active 057885604 Problem 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 Active 96741390 Problem Benign prostatic hyperplasia, presence of lower urinary tract symptoms unspecified, unspecified morphology N40.0 Active 522353201 Problem Moderate episode of recurrent major depressive disorder F33.1 Active 538062572 Problem Age-related osteoporosis without current pathological fracture M81.0 Active 51048967 Problem Low back pain M54.5 Active 020103714 Problem Anxiety F41.9 Active 02766346 Problem Urge incontinence N39.41 Active 978938044 Problem Hyperlipidemia, unspecified E78.5 Active 84706984 Problem Esophageal stricture K22.2 Active 01311924 Problem Cervicalgia M54.2 Active 2957262948066 Problem Primary insomnia F51.01 Active 115563581 ALLERGIES No Information ENCOUNTERS Encounter Location Date Diagnosis [facility] [address] [address] Jul, Anxiety F41.9 [facility] [address] [address] June, Anxiety F41.9 [facility] [address] [address]- [address] June, [facility] [address] [address] June, Low back pain M54.5 ; Chronic prescription opiate use Z79.899 ; Candidal intertrigo B37.2 ; Urge incontinence N39.41 ; Essential hypertension I10 ; Moderate episode of recurrent major depressive disorder F33.1 ; Age-related osteoporosis without current pathological fracture M81.0 and BMI 45.0-49.9, adult Z68.42 [facility] [id number] [place] [address] 42981- 3878 June, [facility] [address] [address]- 7[address] May, Anxiety F41.9 [facility] [address] 30[address]- [address] May, [facility] [address] [address]- 2446 May, [facility] [id number] [place] [address] 60194- 6790 Apr, Anxiety F41.9 [facility] [address] [address]- 24[address] Apr, [facility] [address] 30735- 7666 Apr, Low back pain M54.5 [facility] [id number] [address] Apr, [facility] [id number] [place] [address] 65329- 1144 Apr, [facility] [id number] [place] [address] 25605- 6726 Apr, Anxiety F41.9 [facility] [id number] [place] [address] 33666- 0450 Apr, Right groin pain R10.31 [facility] [id number] [place] [address] 08020- 2008 Mar, [facility] [id number] [place] [address] 57604- 3012 Mar, [facility] [id number] [place] [address] 77711- 4852 Mar, Anxiety F41.9 [facility] [id number] [place] [address] 31327- 8566 Mar, Low back pain M54.5 [facility] [id number] [place] [address] 56168- 2778 Mar, Right groin pain R10.31 ; Low back pain M54.5 and BMI 45.0- 49.9, adult Z68.42 [facility] [id number] [place] [address] 22712- 0905 Mar, [facility] [id number] [place] [address] 90053- 1405 Mar, [facility] [id number] [place] [address] 37246- 6979 Mar, [facility] [id number] [place] [address] 29363 -8166 Mar, [facility] [id number] [place] [address] 22405 -6207 Mar, Cough R05 ; Pneumonia of right lower lobe due to infectious organism J18.1 and Abnormal chest x-ray R93.8 [facility] [id number] [place] [address] 13910- 7809 Mar, [facility] [id number] [place] [address] 85607- 5376 Mar, [facility] [address] 57246- 8468 Jan, Anxiety F41.9 [facility] [address] 68[address]- 7579 Jan, [facility] [address] 59847- 9365 Jan, Moderate episode of recurrent major depressive disorder F33.1 [place] [address] 75130- 8437 Jan, Subacromial bursitis of right shoulder joint M75.51 ; Shortness of breath on exertion R06.02 and BMI 45.0-49.9, adult Z68.42 [facility] [id number] [place] [address] 93360- 9694 Dec, Anxiety F41.9 [facility] [id number] [place] [address] 41670- 1880 Dec, [facility] [id number] [place] [address] 13425- 2273 Dec, Low back pain M54.5 [facility] [id number] [place] [address] 64653- 5254 Oct, Low back pain M54.5 [facility] [id number] [place] [address] 51238- 3810 Sep, [facility] [id number] [place] [address] 95656- 4703 Sep, Erectile dysfunction due to diseases classified elsewhere N52.1 [place] [address] [address] 88[address] Sep, Erectile dysfunction due to diseases classified elsewhere N52.1 [facility] [id number] [place] [address] 54149- 0368 Sep, [facility] [id number] [place] [address] 55381- 1234 Sep, Erectile dysfunction due to diseases classified elsewhere N52.1 [facility] [id number] [place] [address] 13867- 9911 Sep, Low back pain M54.5 and Anxiety F41.9 [facility] [id number] [place] [address] 20120 -0278 Aug, Acute allergic rhinitis J30.9 [facility] [id number] [place] [address] 19253- 9609 Aug, [facility] [id number] [place] [address] 33882- 3406 Aug, Anxiety F41.9 [facility] [id number] [place] [address] 97038- 1908 Jul, Low back pain M54.5 ; Chronic prescription opiate use Z79.899 and Essential hypertension I10 [facility] [address] [place] [address] 60684- 4209 Jul, Anxiety F41.9 and Low back pain M54.5 [facility] [id number] [place] [address] 04305- 7675 June, [facility] [id number] [place] [address] 92157- 9055 June, Anxiety F41.9 [facility] [id number] [place] [address] 77363- 0845 May, Low back pain M54.5 [facility] [id number] [place] [address] 79872- 9025 May, [place] [address] [place] [address] 76420- 9762 May, Anxiety F41.9 [place] [id number] [place] [address] 54216- 2330 Apr, [place] [id number] [place] [address] 74388- 3661 Apr, Low back pain M54.5 [place] [id number] [place] [address] 34471- 5801 Apr, Moderate episode of recurrent major depressive disorder F33.1 [place] [id number] [place] [address] 81763- 5986 Apr, Anxiety F41.9 [place] [id number] [place] [address] 77499- 4198 Apr, Low back pain M54.5 [place] [id number] [place] [address] 01896- 8317 15 Apr, 2016 Elevated alkaline phosphatase level R74.8 [place] [id number] [place] [address] 43621- 1316 10 Apr, 2016 Alkaline phosphatase elevation R74.8 [place] [id number] [place] [address] 25810- 2235 06 Apr, 2016 Anxiety F41.9 [place] [id number] [place] [address] 95802- 2897 Apr, Low back pain M54.5 [place] [address] [place] [address] 55944- 1616 03 Apr, 2016 History of weight loss surgery Z98.84 ; Encounter for hepatitis C screening test for low risk patient Z11.59 ; History of herpes genitalis Z86.19 ; Essential hypertension I10 ; Hyperlipidemia, unspecified E78.5 ; Exposure to STD Z20.2 and Benign prostatic hyperplasia, presence of lower urinary tract symptoms unspecified, unspecified morphology N40.0 [facility] [address] [address]- 9387 02 Apr, 2016 [facility] [address] [place] [address] 06900- 1003 Mar, [facility] [address] [place] [address] 96352- 4946 Mar, [place] [id number] [place] [address] 53909- 8247 Mar, [facility] [address] [place] [address] 89661- 8443 Mar, Acute right-sided low back pain with right-sided sciatica M54.41 [place] [address] [place] [address] 41452- 5395 Mar, Low back pain M54.5 [facility] [address] [place] [address] 28684 -4178 Mar, Muscle strain of chest wall, initial encounter S29.011A ; Muscle strain of right thigh, initial encounter S76.911A and Acute non- recurrent maxillary sinusitis J01.00 [place] [address], [place] [address]- 0029 Mar, Benign prostatic hyperplasia, presence of lower urinary tract symptoms unspecified, unspecified morphology N40.0 [place] [address], [place] [address]- 4792 Jan, Low back pain M54.5 [facility] [address] [place] [address] 77765- 9221 Jan, Low back pain M54.5 ; Essential hypertension I10 ; Hyperlipidemia, unspecified E78.5 ; Anxiety F41.9 ; Moderate episode of recurrent major depressive disorder F33.1 ; Primary insomnia F51.01 ; Exposure to STD Z20.2 ; Encounter for hepatitis C screening test for low risk patient Z11.59 and History of herpes genitalis Z86.19 [place] [address], [place] [address]- 4459 Dec, [facility] [id number] [place] [address] 58906- 2289 Nov, [facility] [id number] [place] [address] 35881- 6959 Nov, Anxiety F41.9 ; Cervicalgia M54.2 ; Moderate episode of recurrent major depressive disorder F33.1 and Encounter for immunization Z23 [facility] [id number] [place] [address] 03690- 2053 Oct, [facility] [id number] [place] [address] 26570- 9783 22 Nov, 2015 [facility] [id number] [place] [address] 62235- 0498 16 Nov, 2015 [facility] [id number] [place] [address] 02654- 7366 Oct, [facility] [id number] [place] [address] 40405- 6766 Sep, [facility] [id number] [place] [address] 19898- 6209 Aug, Low back pain M54.5 ; Anxiety F41.9 ; Primary insomnia F51.01 and Chronic prescription opiate use Z79.899 [facility] [address] [place] [address] 60745- 4570 Jul, [facility] [address] [place] [address] 48651- 7107 Jul, [facility] [id number] [place] [address] 87045- 0084 Jul, [facility] [id number] [address]- 2026 Jul, [facility] [id number] [place] [address] 16638- 8685 Jul, [facility] [address], [place] [address]- 9905 June, [facility] [id number] [place] [address] 33287- 5040 June, [facility] [address], [place] [address]- 3993 June, [facility] [id number] [place] [address] 45565- 2528 June, [facility] [address] [place] [address] 60561- 2230 May, Preoperative cardiovascular examination Z01.810 [facility] [id number] [place] [address] 82095- 6445 May, [facility] [id number] [place] [address] 61443- 4257 Apr, [facility] [id number] [place] [address] 95453- 3039 Apr, Osteoarthritis of right knee M17.9 [facility] [id number] [place] [address] 54767- 1846 Apr, [facility] [address] [place] [address] 36023- 5926 Apr, [facility] [address], [place] [address]- 4832 Apr, [facility] [id number] [address]- 7031 Apr, [facility] [id number] [place] [address] 09888- 7003 Apr, History of excessive cerumen Z78.9 ; Obstructive sleep apnea syndrome G47.33 ; History of diverticulitis Z87.19 and Nephrolithiasis N20.0 [facility] [address], [place] [address]- 7665 Apr, [facility] [address] [place] [address] 38870 -5735 Apr, Abdominal pain R10.9 [facility] [id number] [place] [address] 01738- 4738 10 Apr, 2015 [facility] [id number] [place] [address] 46274- 8412 Apr, Osteoarthritis of right knee M17.9 [facility] [id number] [place] [address] 07292- 7781 Mar, [place] [address] 64022- 7729 Mar, [facility] [id number] [place] [address] 26838- 0880 Mar, [facility] [id number] [place] [address] 00177- 9913 Mar, [facility] [address] [place] [address] 94229 -1386 Mar, Pyelonephritis N12 ; Left-sided thoracic back pain M54.6 ; Hematuria, unspecified R31.9 and Kidney stone N20.0 [place] [id number] [place] [address] 83492- 8826 Mar, History of weight loss surgery Z98.84 [facility] [id number] [place] [address] 51390- 4991 Mar, History of weight loss surgery Z98.84 and Hyperlipidemia, unspecified E78.5 [place] [id number] [place] [address] 22510- 4745 Mar, Low back pain M54.5 ; Chronic prescription opiate use Z79.899 ; Hyperlipidemia, unspecified E78.5 ; Spasm of back muscles M62.830 and History of weight loss surgery Z98.84 [place] [id number] [place] [address] 66024- 2153 Jan, [facility] [address], [place] [address]- [address] Jan, [facility] [address] [place] [address] 661439- 4648 Jan, [facility] [address] 6882 Dec, [facility] [id number] [place] [address] 808878- 0266 Dec, [facility] [address] [place] [address] 310470- 0263 Dec, [facility] [id number] [place] [address] 72109- 3826 Nov, [facility] [id number] [place] [address] 11364- 8199 Nov, Obstructive sleep apnea syndrome G47.33 and Pharyngoesophageal dysphagia R13.14 [facility] [address], [place] [address]- 6690 Nov, [facility] [id number] [place] [address] 01505- 8677 Nov, [facility] [address], [place] [address]- 0349 Nov, [facility] [id number] [id number] 30 Oct, 2014 Dental examination V72.2 [facility] [id number], [place] [address] Oct, [facility] [address] [place] [id number] [place] [id number]- [address] Oct, [facility] [id number], [place] [address] Oct, [facility] [id number] [place] [address]52- 8855 Oct, [facility] [address] [place] [id number] [place] [address]- 5207 Oct, BPH (benign prostatic hyperplasia) 600.00 and Urinary frequency 788.41 [facility] [address] [place] [id number] [place] [address]- 6680 Oct, [facility] [address] [address] Oct, [facility] [address] [place] [id number] [place] [address] 23047- 8645 Oct, [facility] [address] [place] [id number] [place] [address] 87[address]- 7608 Sep, Cerumen impaction 380.4 ; Cerumen debris on tympanic membrane 380.4 ; Psoriasis 696.1 and MICKY (secretory otitis media) 381.4 [facility] [address] [place] [id number] [place] [id number] Sep, Dental examination V72.2 [facility] [address] [place] [id number] [place] [address]60- 5756 Sep, Fatigue 780.79 ; Irritable bowel syndrome 564.1 ; Overweight 278.02 ; Poor sleep V69.4 ; Shaking spells 781.0 and Broken tooth 873.63 [facility] [address] [place] [id number] [place] [address]- 3205 Sep, [facility] [address] [place] [id number] [place] [address]- 1320 Sep, [facility] [address] [address]- [address] Aug, [facility] [address] [place] [id number] [place] [address] 19[address]- 2962 Jul, [facility] [address] [place] [id number] [place] [address] 42062- 8605 Jul, [facility] [address] [id number] [place] [address] Jul, [facility] [address] [place] [id number] [place] [address] Jul, [facility] [address] [place] [id number] [place] [address]- [address] June, Arthritis of knee, right 716.96 [facility] [address] [id number] [place] [address]- [address] June, [facility] [address] [facility] [id number] [place] [address] June, Elevated blood pressure reading without diagnosis of hypertension 796.2 [facility] [id number] [place] [address] June, [facility] [id number] [place] [address] June, [facility] [address] [place] [address] [id number] [place] [address]- [address] June, [facility] [address] [id number] [place] [address] June, [facility] [address] [id number] [place] [address] May, [facility] [address] [id number] [place] [address] May, [facility] [address] [facility] [id number] [place] [address] Apr, [facility] [address] [facility] [id number] [place] [address]268 Apr, [facility] [address] [facility] [id number] [id number] [address] Apr, [facility] [address] [id number] [place] [address]- [address] Apr, [facility] [place] [facility] [address] [id number] [place] [address]- [address] Apr, [facility] [place] [facility] [address] [id number] [place] [address]- 6441 20 Apr, 2014 [facility] [place] [facility] [address] [id number] [place] [address]- 6826 Apr, [facility] [place] [facility] [address] [id number] [place] [address]- 0464 13 Apr, 2014 [facility] [place] [facility] [address] [id number] [place] [address]- 1971 Apr, [facility] [place] [facility] [address] [id number] [place] [address]- 4954 Apr, [facility] [place] [facility] [address] [facility] [id number] [place] [address]- 2045 Apr, [facility] [place] [facility] [address] [id number] [place] [address]- 6645 Apr, 2014 [facility] [place] [facility] [address] [id number] [place] [address]- 2226 24 Apr, 2014 [facility] [place] [facility] [address] [facility] [id number] [place] [address]- 1548 24 Apr, 2014 [facility] [place] [facility] [address] [facility] [id number] [place] [address]- 4947 Apr, 2014 [facility] [place] [facility] [address] [id number] [place] [address]- 8747 Apr, 2014 [facility] [place] [facility] [address] [id number] [place] [address]- 9483 Apr, 2014 [facility] [place] [facility] [address] [id number] [place] [address]- 6094 Apr, 2014 [facility] [place] [facility] [address] [facility] [id number] [place] [address]- 0006 18 Apr, 2014 [facility] [place] [facility] [address] [id number] [place] [address]- 4614 18 Apr, 2014 [facility] [place] [facility] [address] [id number] [place] [address]- 3936 Apr, 2014 [facility] [place] [facility] [address] [id number] [place] [address]- 2546 Apr, 2014 [facility] [place] [facility] [address] [id number] [place] [address]- 2976 Apr, 2014 [facility] [place] [facility] [address] [id number] [place] [address]- 2547 Apr, 2014 [facility] [place] [facility] [address] [id number] [place] [address]- 8321 Apr, 2014 [facility] [place] [facility] [address] [facility] [id number] [place] [address]- 3127 Apr, 2014 [facility] [place] [facility] [address] [facility] [id number] [place] [address]- 1142 Apr, 2014 [facility] [place] [facility] [address] [facility] [id number] [place] [address]- 1276 Apr, 2014 [facility] [place] [facility] [address] [facility] [id number] [place] [address]- 1570 Apr, 2014 [facility] [place] [facility] [address] [facility] [id number] [place] [address]- 1873 Apr, 2014 [facility] [place] [facility] [address] [facility] [id number] [address]- 2548 Apr, 2014 [facility] [place] [facility] [address] [facility] [id number] [place] [address]- 2549 Apr, 2014 [facility] [place] [facility] [address] [facility] [id number] [place] [address]- 3970 Apr, 2014 [facility] [place] [facility] [address] [facility] [id number] [place] [address]- 9897 Mar, [facility] [place] [facility] [address] [facility] [id number] [place] [address]- 2604 Mar, [facility] [address] [id number] [place] [address]- 1018 Mar, [facility] [place] [facility] [address] [id number] [place] [address]- 0779 Mar, [facility] [place] [facility] [address] [id number] [place] [address]- 5104 Mar, [facility] [place] [facility] [address] [id number] [place] [address]- 4636 Mar, [facility] [place] [facility] [address] [id number] [place] [address]- 8478 Mar, [facility] [place] [facility] [address] [id number] [place] [address]- 8785 Mar, [facility] [place] [facility] [address] [id number] [place] [address]- 4252 Mar, [facility] [place] [facility] [address] [id number] [place] [address]- 2699 Mar, [facility] [place] [facility] [address] [id number] [place] [address]- 2298 Jan, [facility] [place] [facility] [address] [id number] [place] [address]- 9609 Jan, [facility] [place] [facility] [address] [id number] [place] [address]- 8524 Jan, [facility] [place] [facility] [address] [id number] [place] [address]- 0084 Jan, [facility] [place] [facility] [address] [id number] [place] [address]- 1113 Jan, [facility] [place] [facility] [address] [id number] [place] [address]- 0086 Jan, [facility] [place] [facility] [address] [id number] [place] [address]- 1152 Jan, [facility] [place] [facility] [address] [id number] [place] [address]- 0766 Jan, [facility] [place] [facility] [address] [id number] [place] [address]- 8612 Jan, [facility] [place] [facility] [address] [id number] [place] [address]- 5415 Jan, [facility] [place] [facility] [address] [id number] [place] [address]- 0055 Jan, [facility] [place] [facility] [address] [id number] [place] [address]- 9643 Jan, [facility] [place] [facility] [address] [id number] [place] [address]- 1641 Dec, [facility] [place] [facility] [address] [id number] [place] [address]- 8667 Dec, [facility] [place] [facility] [address] [id number] [place] [address]- 9676 Dec, [facility] [place] [facility] [address] [id number] [place] [address]- 1466 Dec, [facility] [place] [facility] [address] [id number] [place] [address]- 9089 Dec, [facility] [place] [facility] [address] [id number] [place] [address]- 6850 Dec, [facility] [place] [facility] [address] [id number] [place] [address]- 4689 Dec, [facility] [place] [facility] [address] [id number] [place] [address]- 3378 Dec, [facility] [place] [facility] [address] [id number] [place] [address]- 8247 Dec, [facility] [place] [facility] [address] [id number] [place] [address]- 5228 Dec, [facility] [place] [facility] [address] [id number] [place] [address]- 2190 31 Nov, 2013 [facility] [place] [facility] [address] [id number] [place] [address]- 8969 31 Nov, 2013 [facility] [place] [facility] [address] [id number] [place] [address]- 0253 Nov, [facility] [place] [facility] [address] [id number] [place] [address]- 9753 Nov, [facility] [place] [facility] [address] [id number] [place] [address]- 3731 Nov, [facility] [place] [facility] [address] [id number] [place] [address]- 3995 Nov, [facility] [place] [facility] [address] [id number] [place] [address]- 6476 Nov, [facility] [place] [facility] [address] [id number] [place] [address]- 3594 Nov, [facility] [place] [facility] [address] [id number], [place] [address]- 4315 Nov, [facility] [place] [facility] [address] [id number] [place] [address]- 9824 24 Nov, 2013 [facility] [place] [facility] [address] [id number] [place] [address]- 3868 Nov, [facility] [place] [facility] [address] [id number], [place] [address]- 3684 17 Nov, 2013 [facility] [place] [facility] [address] [id number], [place] [address]- 9464 14 Nov, 2013 [facility] [place] [facility] [address] [id number] [place] [address]- 1673 14 Nov, 2013 [facility] [place] [facility] [address] [id number], [place] [address]- 3689 10 Nov, 2013 [facility] [place] [facility] [address] [id number], [place] [address]- 0190 10 Nov, 2013 [facility] [place] [facility] [address] [id number] [place] [address]- 0252 08 Nov, 2013 [facility] [place] [facility] [address] [id number] [place] [address]- 2817 Nov, [facility] [place] [facility] [address] [id number] [place] [address]- 5005 Nov, [facility] [place] [facility] [address] [id number] [place] [address]- 8613 Nov, [facility] [place] [facility] [address] [id number] [place] [address]- 4146 Oct, [facility] [place] [facility] [address] [id number] [place] [address]- 1182 Oct, [facility] [place] [facility] [address] [id number] [place] [address]- 1351 Oct, [facility] [place] [facility] [address] [id number] [place] [address]- 5200 Oct, [facility] [place] [facility] [address] [id number] [place] [address]- 1745 Oct, [facility] [place] [facility] [address] [id number] [place] [address]- 1489 Oct, [facility] [place] [facility] [address] [id number] [place] [address]- 7059 Oct, [facility] [place] [facility] [address] [id number] [place] [address]- 2542 Oct, [facility] [place] [facility] [address] [id number] [place] [address]- 8154 Oct, [facility] [place] [facility] [address] [id number] [place] [address]- 9959 Oct, [facility] [place] [facility] [address] [id number] [place] [address]- 0976 Sep, [facility] [place] [facility] [address] [id number] [place] [address]- 1901 Sep, [facility] [place] [facility] [address] [id number] [place] [address]- 5731 Sep, [facility] [place] [facility] [address] [id number] [place] [address]- 1931 Sep, [facility] [place] [facility] [address] [id number] [place] [address]- 8324 Sep, [facility] [place] [facility] [address] [id number] [place] [address]- 0982 Sep, [facility] [place] [facility] [address] [id number] [place] [address]- 3419 Sep, [facility] [place] [facility] [address] [id number] [place] [address]- 2458 Sep, [facility] [place] [facility] [address] [id number] [place] [address]- 4730 Sep, [facility] [place] [facility] [address] [id number] [place] [address]- 4589 Sep, [facility] [place] [facility] [address] [id number] [place] [address]- 3964 Sep, [facility] [place] [facility] [address] [id number] [place] [address]- 2962 Sep, [facility] [place] [facility] [address] [id number] [place] [address]- 4129 Sep, [facility] [place] [facility] [address] [id number] [place] [address]- 3128 Sep, [facility] [place] [facility] [address] [id number] [place] [address]- 8886 Sep, [facility] [place] [facility] [address] [id number] [place] [address]- 2353 Sep, [facility] [place] [facility] [address] [id number] [place] [address]- 9808 Sep, [facility] [place] [facility] [address] [id number] [place] [address]- 9472 Sep, [facility] [place] [facility] [address] [id number] [place] [address]- 3556 Sep, [facility] [place] [facility] [address] [id number] [place] [address]- 6106 Sep, [facility] [place] [facility] [address] [id number] [place] [address]- 7170 Sep, [facility] [place] [facility] [address] [id number] [place] [address]- 8856 Sep, [facility] [place] [facility] [address] [id number] [place] [address]- 4691 Sep, [facility] [place] [facility] [address] [id number] [place] [address]- 1962 Sep, [facility] [place] [facility] [address] [id number] [place] [address]- 3007 Sep, [facility] [place] [facility] [address] [id number] [place] [address]- 4594 Aug, [facility] [place] [facility] [address] [id number] [place] [address]- 8380 Aug, [facility] [place] [facility] [address] [id number] [place] [address]- 1787 Aug, [facility] [place] [facility] [address] [id number] [place] [address]- 4743 Aug, [facility] [place] [facility] [address] [id number] [place] [address]- 6322 Aug, [facility] [place] [facility] [address] [id number] [place] [address]- 8615 Aug, [facility] [place] [facility] [address] [id number] [place] [address]- 6956 Aug, [facility] [place] [facility] [address] [id number] [place] [address]- 6452 Aug, [facility] [place] [facility] [address] [id number] [place] [address]- 4440 Aug, [facility] [place] [facility] [address] [id number] [place] [address]- 3884 Aug, [facility] [place] [facility] [address] [id number] [place] [address]- 3676 Aug, [facility] [place] [facility] [address] [id number] [place] [address]- 2270 Aug, [facility] [place] [facility] [address] [id number] [place] [address]- 8938 Aug, [facility] [place] [facility] [address] [id number] [place] [address]- 2817 Jul, [facility] [place] [facility] [address] [id number] [place] [address]- 2454 Jul, [facility] [place] [facility] [address] [id number] [place] [address]- 8906 Jul, [facility] [place] [facility] [address] [id number] [place] [address]- 3511 Jul, [facility] [place] [facility] [address] [id number] [place] [address]- 2431 Jul, [facility] [place] [facility] [address] [id number] [place] [address]- 5806 Jul, [facility] [place] [facility] [address] [id number] [place] [address]- 2108 Jul, [facility] [place] [facility] [address] [id number] [place] [address]- 7892 June, [facility] [place] [facility] [address] [id number] [place] [address]- 2049 June, [facility] [place] [facility] [address] [id number] [place] [address]- 8776 June, [facility] [place] [facility] [address] [id number] [place] [address]- 6026 June, [facility] [place] [facility] [address] [id number] [place] [address]- 3441 May, [facility] [place] [facility] [address] [id number] [place] [address]- 3068 May, [facility] [place] [facility] [address] [id number] [place] [address]- 6173 May, [facility] [place] [facility] [address] [id number] [place] [address]- 8153 May, [facility] [place] [facility] [address] [id number] [place] [address]- 3495 May, [facility] [place] [facility] [address] [id number] [place] [address]- 2798 May, [facility] [place] [facility] [address] [id number] [place] [address]- 0851 May, [facility] [place] [facility] [address] [id number] [place] [address]- 9120 May, [facility] [place] [facility] [address] [id number] [place] [address]- 7212 May, [facility] [place] [facility] [address] [id number] [place] [address]- 2579 May, [facility] [place] [facility] [address] [id number] [place] [address]- 6987 Apr, [facility] [place] [facility] [address] [id number], [place] [address]- 1109 Apr, [facility] [place] [facility] [address] [id number] [place] [address]- 0868 Apr, [facility] [place] [facility] [address] [id number] [place] [address]- 8005 Apr, [facility] [place] [facility] [address] [id number] [place] [address]- 9375 Apr, [facility] [place] [facility] [address] [id number] [place] [address]- 9914 18 Apr, 2013 [facility] [address] [id number] [place] [address]- 2526 Apr, [facility] [place] [facility] [address] [id number] [place] [address]- 7146 Apr, [facility] [address] [id number] [place] [address]- 0866 Apr, [facility] [place] [facility] [address] [id number] [place] [address]- 8126 Apr, [facility] [address] [id number] [place] [address]- 4171 Mar, [facility] [address] [id number] [place] [address]- 2659 Mar, [facility] [address] [id number] [place] [address]- 7055 Mar, [facility] [address] [id number] [place] [address]- 4988 Mar, [facility] [place] [facility] [address] [facility] [id number] [place] [address]- 8703 Mar, [facility] [address] [facility] [id number] [place] [address]- 4283 Mar, [facility] [address] [id number] [place] [address]- 1247 Jan, [facility] [place] [facility] [address] [id number] [place] [address]- 0863 Jan, [facility] [place] [facility] [address] [id number] [place] [address]- 7299 Jan, [facility] [place] [facility] [address] [id number] [place] [address]- 5516 Jan, [facility] [place] [facility] [address] [id number] [place] [address]- 5389 Jan, [facility] [place] [facility] [address] [id number] [place] [address]- 2540 Jan, [facility] [place] [facility] [address] [id number] [place] [address]- 2241 Jan, [facility] [place] [facility] [address] [id number] [place] [address]- 4501 Jan, [facility] [place] [facility] [address] [id number] [place] [address]- 1231 Jan, [facility] [place] [facility] [address] [id number] [place] [address]- 9453 Dec, [facility] [place] [facility] [address] [id number] [place] [address]- 7629 Dec, [facility] [place] [facility] [address] [id number] [place] [address]- 6005 Dec, [facility] [place] [facility] [address] [id number] [place] [address]- 1317 Dec, [facility] [place] [facility] [address] [id number] [place] [address]- 7576 Dec, [facility] [place] [facility] [address] [id number], [place] [address]- 6274 Dec, [facility] [place] [facility] [address] [id number], [place] [address]- 6515 Dec, [facility] [place] [facility] [address] [id number], [place] [address]- 2529 Dec, [facility] [place] [facility] [address] [id number] [place] [address]- 6320 Dec, [facility] [place] [facility] [address] [id number], [place] [address]- 0461 Dec, [facility] [place] [facility] [address] [id number], [place] [address]- 1640 Dec, [facility] [place] [facility] [address] [id number] [place] [address]- 6970 Nov, [facility] [address] [id number] [place] [address]- 7406 Nov, [facility] [place] [facility] [address] [id number] [place] [address] Nov, [facility] [place] [facility] [address] [id number] [place] [address] Nov, [facility] [place] [facility] [address] [id number] [place] [address] Nov, [facility] [place] [facility] [address] [id number] [place] [address] Oct, [facility] [place] [facility] [address] [id number] [place] [address] Oct, [facility] [address] [id number] [place] [address] Sep, [facility] [place] [facility] [address] [id number] [place] [address] Aug, [facility] [place] [facility] [address] [id number] [place] [address] Aug, [facility] [place] [facility] [address] [id number] [place] [address] Aug, [facility] [place] [facility] [address] [id number] [place] [address] Aug, [facility] [place] [facility] [address] [id number] [place] [address] Jul, [facility] [place] [facility] [address] [id number] [place] [address] Jul, [facility] [place] [facility] [address] [id number] [place] [address] June, [facility] [place] [facility] [address] [id number] [place] [address] June, [facility] [place] [facility] [address] [id number] [place] [address] June, [facility] [place] [facility] [address] [id number] [place] [address]- [address] 08 May, 2012 [facility] [place] [facility] [address] [id number] [place] [address] May, [facility] [place] [facility] [address] [id number] [place] [address] May, [facility] [place] [facility] [address] [id number] [place] [address] Apr, [facility] [place] [facility] [address] [id number] [place] [address] 18 Apr, 2012 [facility] [place] [facility] [address] [facility] [id number] [place] [address] 15 Apr, 2012 [facility] [place] [facility] [address] [id number] [place] [address] 14 Apr, 2012 [facility] [address] [id number] [place] [address] Apr, [facility] [place] [facility] [address] [id number] [place] [address] Apr, [facility] [place] [facility] [address] [facility] [id number] [place] [address] Apr, [facility] [place] [facility] [address] [id number], [place] [address] Apr, [facility] [place] [facility] [address] [id number] [place] [address] Apr, [facility] [place] [facility] [address] [id number] [place] [address] Apr, [facility] [place] [facility] [address] [facility] [id number] [place] [address] 1356 19 Apr, 2012 [facility] [place] [facility] [address] [facility] [id number] [place] [address] 07 Apr, 2012 [facility] [address] [id number] [place] [address] 07 Apr, 2012 [facility] [address] [id number] [place] [address] Mar, [facility] [address] [id number] [place] [address] 35[address] Mar, [facility] [address] [id number] [place] [address]- [address] 16 Mar, 2012 [facility] [address] [id number] [place] [address] Mar, [facility] [address] [id number] [place] [address] Mar, [facility] [address] [id number] [place] [address] Jan, [facility] [address] [id number] [place] [address] 28 Jan, 2012 [facility] [address] [id number] [place] [address] Jan, [facility] [address] [id number] [place] [address] 22 Jan, 2012 [facility] [address] [id number] [place] [address] 14 Jan, 2012 [facility] [address] [id number] [place] [address]- [address]47 13 Jan, 2012 [facility] [address] [id number] [place] [address] 13 Jan, 2012 [facility] [address] [id number] [place] [address] 11 Jan, 2012 [facility] [address] [id number] [place] [address]- [address] 06 Jan, 2012 [facility] [place] [facility] [address] [id number] [place] [address] 06 Jan, 2012 [facility] [place] [facility] [address] [id number] [place] [address]- 1566 04 Jan, 2012 [facility] [place] [facility] [address] [id number] [place] [address]- 9926 04 Jan, 2012 [facility] [place] [facility] [address] [id number] [place] [address]- 58[address] 04 Jan, 2012 [facility] [place] [facility] [address] [id number] [place] [address]- 1020 04 Jan, 2012 [facility] [place] [facility] [address] [id number] [place] [address] 26 Jan, 2012 [facility] [place] [facility] [address] [id number] [place] [address] 26 Jan, 2012 [facility] [place] [facility] [address] [id number] [place] [address]- 8691 19 Jan, 2012 [facility] [place] [facility] [address] [id number] [place] [address]- [address] 19 Jan, 2012 [facility] [place] [facility] [address] [id number] [place] [address]76 15 Jan, 2012 [facility] [place] [facility] [address] [id number] [place] [address]- 1784 15 Jan, 2012 [facility] [place] [facility] [address] [id number] [place] [address]- [address] 14 Jan, 2012 [facility] [place] [facility] [address] [id number] [place] [address]- 8046 14 Jan, 2012 [facility] [place] [facility] [address] [id number] [place] [address]- 2766 14 Jan, 2012 [facility] [place] [facility] [address] [id number] [place] [address]- 20[address] 14 Jan, 2012 [facility] [place] [facility] [address] [id number] [place] [address]- 1129 Dec, [facility] [place] [facility] [address] [id number] [place] [address]- [address] Dec, [facility] [place] [facility] [address] [id number] [place] [address]- [address] 16 Dec, 2011 [facility] [place] [facility] [address] [id number] [place] [address] 2546 16 Dec, 2011 [facility] [place] [facility] [address] [id number] [place] [address]- 97[address] 13 Nov, 2011 [facility] [facility] [address] [id number] [place] [address] 13 Nov, 2011 [facility] [place] [facility] [address] [id number] [place] [address] 13 Nov, 2011 [facility] [place] [facility] [address] [id number] [place] [address] Oct, [facility] [place] [facility] [address] [id number] [place] [address] Sep, [facility] [place] [facility] [address] [id number] [place] [address] Sep, [facility] [place] [facility] [address] [id number] [place] [address] Aug, [facility] [place] [facility] [address] [id number], [place] [address] Aug, [facility] [place] [facility] [address] [id number], [place] [address] Aug, [facility] [place] [address] [id number] [place] [address] Aug, [facility] [place] [facility] [address] [id number], [place] [address] June, [facility] [facility] [address] [id number] [place] [address] June, [facility] [place] [facility] [address] [id number] [place] [address] 17 Jun, 2011 [facility] [address] [id number] [place] [address] Apr, [facility] [address] [id number] [place] [address] Apr, [facility] [address] [id number] [place] [address] Apr, [facility] [address] [id number] [place] [address] Apr, [facility] [address] [id number] [place] [address] Apr, [facility] [address] [id number] [place] [address] Apr, [facility] [address] [id number] [place] [address] Mar, [facility] [address] [id number] [place] [address] Mar, [facility] [address] [id number] [place] [address] Mar, [facility] [address] [id number] [place] [address] Jan, [facility] [address] [id number] [place] [address] 25[address] Jan, [facility] [address] [id number] [place] [address] Jan, [facility] [address] [id number] [place] [address] Jan, [facility] [address] [id number] [place] [address] Jan, [facility] [address] [id number] [place] [address] Jan, [facility] [address] [id number] [place] [address] Jan, [facility] [facility] [address] [id number] [place] [address] 4216 Dec, [facility] [address] [id number] [place] [address] Dec, [facility] [address] [id number] [place] [address] Nov, [facility] [facility] [address] [id number] [place] [address] Nov, [facility] [address] [id number] [place] [address] Nov, [facility] [address] [id number] [place] [address] Nov, [facility] [address] [id number], [place] [address] Oct, [facility] [address] [id number] [place] [address] Sep, [facility] [address] [id number], [place] [address] Mar, [facility] [address] [id number], [place] [address] Jan, [facility] [address] [id number], [place] [address] Dec, [facility] [place] [facility] [address] [id number] [place] [address] Dec, [facility] [place] [facility] [address] [id number] [place] [address] Dec, [facility] [facility] [address] [id number], [place] [address] Dec, [facility] [address] [id number], [place] [address] 26 Nov, 2009 [facility] [address] [id number] [place] [address]- [address] 15 Nov, 2009 [facility] [address] [id number], [place] [address] 14 Nov, 2009 [facility] [address] [facility] [id number] [place] [address] 14 Nov, 2009 [facility] [address] [id number], [place] [address] 13 Oct, 2009 [facility] [address] [id number] [place] [address]- [address] 17 Jul, 2009 [facility] [address] [facility] [id number] [place] [address]- [address] 17 Jun, 2009 [facility] [address] [facility] [id number], [place] [address] 14 Jun, 2009 [facility] [address] [facility] [id number] [place] [address] 17 Apr, 2009 [facility] [address] [facility] [id number], [place] [address]- [address] Mar, [facility] [address] [facility] [id number], [place] [address] 24 Jan, 2009 [facility] [address] [facility] [id number], [place] [address]- [address]27 19 Jan, 2009 [facility] [address] [id number], [place] [address] 27 Dec, 2008 [facility] [address] [id number], [place] [address]- [address] 25 Dec, 2008 [facility] [address] [facility] [id number], [place] [address]- [address] 13 Dec, 2008 [facility] [address] [facility] [id number], [place] [address] 13 Dec, 2008 [facility] [address] [facility] [id number] [place] [address] Nov, [facility] [address] [facility] [id number] [place] [address] Jul, [facility] [address] [facility] [id number] [place] [address] June, IMMUNIZATIONS No Known Immunizations SOCIAL HISTORY Never Assessed REASON FOR VISIT PLAN OF CARE VITAL SIGNS MEDICATIONS Unknown [...]
--- OUTSIDE RECORDS SUMMARY | 2018-02-26 19:10 | XMS REPORT ---
Author Author GRAHAM CHRIS [facility] Address [address] [place] [address] Care Team Providers Care Alternative Energy Engineer Name Role Phone RGAHAMELLIOTT HANNAHANY Unavailable PROBLEMS Type Condition ICD9-CM Code [id number] Code Onset Dates Condition Status SNOMED Code Problem Pulmonary asbestosis J61 Active 95326242 Problem Left ventricular diastolic dysfunction I51.9 Active 733350866 Problem Chronic gout, unspecified cause, unspecified site M1A.9XX0 Active 19303752 Problem Renal cyst, left N28.1 Active 63374729 Problem History of weight loss surgery Z98.84 Active 653904409 Problem Nocturnal hypoxia G47.34 Active 199970641 Problem Obstructive sleep apnea syndrome G47.33 Active 14824529 Problem History of diverticulitis Z87.19 Active 391291504612663 Problem Allergic rhinitis, unspecified allergic rhinitis type J30.9 Active 01536974 Problem Erectile dysfunction due to diseases classified elsewhere N52.1 Active 019572316 Problem Acute right-sided low back pain with right-sided sciatica M54.41 Active 314274606 Problem Psoriasis L40.9 Active 1722042 Problem Essential hypertension I10 Active 36555070 Problem Nephrolithiasis N20.0 Active 97164134 Problem Chronic prescription opiate use Z79.899 Active 403578191 Problem 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 Active 84514512 Problem Benign prostatic hyperplasia, presence of lower urinary tract symptoms unspecified, unspecified morphology N40.0 Active 825030599 Problem Moderate episode of recurrent major depressive disorder F33.1 Active 397999587 Problem Age-related osteoporosis without current pathological fracture M81.0 Active 77774514 Problem Low back pain M54.5 Active 911747008 Problem Anxiety F41.9 Active 24687048 Problem Urge incontinence N39.41 Active 014112378 Problem Hyperlipidemia, unspecified E78.5 Active 43245502 Problem Esophageal stricture K22.2 Active 42652286 Problem Cervicalgia M54.2 Active 4633119369535 Problem Primary insomnia F51.01 Active 570935261 ALLERGIES No Information ENCOUNTERS Encounter Location Date Diagnosis [facility] [address] [address] June, Anxiety F41.9 [facility] [address] [address]- 0705 June, [facility] [address] 89864- 8374 June, Low back pain M54.5 ; Chronic prescription opiate use Z79.899 ; Candidal intertrigo B37.2 ; Urge incontinence N39.41 ; Essential hypertension I10 ; Moderate episode of recurrent major depressive disorder F33.1 ; Age-related osteoporosis without current pathological fracture M81.0 and BMI 45.0-49.9, adult Z68.42 [place] [address] [address]- [address] June, [facility] [address] 11056- 1084 May, Anxiety F41.9 [place] [address] 70866- 8451 May, [facility] [address] 5[address]00- 4182 May, [facility] [address] 83710- 0034 Apr, Anxiety F41.9 [facility] [address] 61632- 4866 Apr, [facility] [address] 43682- 2630 15 Apr, 2017 Low back pain M54.5 [facility] [address] 41911- 7439 02 Apr, 2017 [facility] [address] 67734- 5907 Apr, [facility] [address] [id number] [place] [address] 64565- 0790 Apr, Anxiety F41.9 [facility] [id number] [place] [address] 14141- 1844 Apr, Right groin pain R10.31 [place] [address] 96368- 6437 Mar, [place] [address] [id number] [place] [address] 59414- 9176 Mar, [place] [address] 49790- 0739 Mar, Anxiety F41.9 [place] [address] [id number] [place] [address] 19637- 5039 Mar, Low back pain M54.5 [place] [place] [address] [id number] [place] [address] 96379- 3268 Mar, Right groin pain R10.31 ; Low back pain M54.5 and BMI 45.0- 49.9, adult Z68.42 [place] [address] [id number] [place] [address] 72686- 1238 Mar, [place] [place] [address] [id number] [place] [address] 31014- 8151 Mar, [place] [address] [id number] [place] [address] 14302- 2004 Mar, [facility] [id number] [place] [address] 61632 -4822 Mar, [facility] [address] [place] [id number] [place] [address] 76976 -7911 Mar, Cough R05 ; Pneumonia of right lower lobe due to infectious organism J18.1 and Abnormal chest x-ray R93.8 [place] [address] [place] [address]- 5693 Mar, [facility] [id number] [place] [address] 16435- 7468 Mar, [facility] [id number] [place] [address] 22797- 0684 Jan, Anxiety F41.9 [facility] [address] 21761- 8736 Jan, [facility] [id number] [place] [address] 65817- 4443 Jan, Moderate episode of recurrent major depressive disorder F33.1 [facility] [id number] [place] [address] 42114- 0844 Jan, Subacromial bursitis of right shoulder joint M75.51 ; Shortness of breath on exertion R06.02 and BMI 45.0-49.9, adult Z68.42 [facility] [id number] [place] [address] 02289- 2969 Dec, Anxiety F41.9 [facility] [id number] [place] [address] 46598- 3904 Dec, [facility] [id number] [place] [address] 21191- 0266 Dec, Low back pain M54.5 [facility] [id number] [place] [address] 28977- 4139 Oct, Low back pain M54.5 [facility] [id number] [place] [address] 97717- 4285 Sep, [facility] [id number] [place] [address] 06212- 2224 Sep, Erectile dysfunction due to diseases classified elsewhere N52.1 [facility] [id number] [place] [address] 42357- 9884 Sep, Erectile dysfunction due to diseases classified elsewhere N52.1 [place] [address] [place] [id number] [place] [address] 88971- 5313 Sep, [facility] [address] 88792- 5645 Sep, Erectile dysfunction due to diseases classified elsewhere N52.1 [facility] [address] 26884- 6005 Sep, Low back pain M54.5 and Anxiety F41.9 [facility] [address] 00889 -2013 Aug, Acute allergic rhinitis J30.9 [facility] [address] 04325- 4389 Aug, [facility] [address] 69450- 6497 Aug, Anxiety F41.9 [facility] [address] 88038- 6722 Jul, Low back pain M54.5 ; Chronic prescription opiate use Z79.899 and Essential hypertension I10 [facility] [address] 57881- 2342 Jul, Anxiety F41.9 and Low back pain M54.5 [facility] [id number] [place] [address] 48262- 5469 June, [facility] [id number] [place] [address] 13913- 0330 June, Anxiety F41.9 [facility] [id number] [place] [address] 87499- 4172 May, Low back pain M54.5 [facility] [id number] [place] [address] 95413- 8870 May, [facility] [id number] [place] [address] 71306- 9224 May, Anxiety F41.9 [place] [address] [id number] [place] [address] 02667- 4715 Apr, [place] [address] 82202- 3179 Apr, Low back pain M54.5 [place] [address] 49568- 7799 Apr, Moderate episode of recurrent major depressive disorder F33.1 [place] [address] 31862- 5055 Apr, Anxiety F41.9 [place] [address] 37403- 7571 Apr, Low back pain M54.5 [place] [address] 89555- 0950 15 Apr, 2016 Elevated alkaline phosphatase level R74.8 [place] [address] [id number] [place] [address] 14178- 4403 10 Apr, 2016 Alkaline phosphatase elevation R74.8 [place] [address] 00876- 7548 06 Apr, 2016 Anxiety F41.9 [place] [address] [id number] [place] [address] 40924- 3291 Apr, Low back pain M54.5 [place] [address] [place] [id number] [place] [address] 53358- 3897 Apr, History of weight loss surgery Z98.84 ; Encounter for hepatitis C screening test for low risk patient Z11.59 ; History of herpes genitalis Z86.19 ; Essential hypertension I10 ; Hyperlipidemia, unspecified E78.5 ; Exposure to STD Z20.2 and Benign prostatic hyperplasia, presence of lower urinary tract symptoms unspecified, unspecified morphology N40.0 [place] [address] [id number] [place] [address] 61808- 5292 Apr, [place] [address] [address]- 5235 Mar, [facility] [id number] [place] [address] 11163- 0473 Mar, [facility] [address] [address]- 0066 Mar, [facility] [id number] [place] [address] 80654- 9734 Mar, Acute right-sided low back pain with right-sided sciatica M54.41 [place] [id number] [place] [address] 89024- 3785 Mar, Low back pain M54.5 [facility] [id number] [place] [address] 35368 -6466 13 Mar, 2016 Muscle strain of chest wall, initial encounter S29.011A ; Muscle strain of right thigh, initial encounter S76.911A and Acute non- recurrent maxillary sinusitis J01.00 [facility] [id number] [place] [address] 34790- 5412 03 Mar, 2016 Benign prostatic hyperplasia, presence of lower urinary tract symptoms unspecified, unspecified morphology N40.0 [place] [address] [address]- 0922 23 Jan, 2016 Low back pain M54.5 [facility] [id number] [place] [address] 01862- 0084 13 Jan, 2016 Low back pain M54.5 ; Essential hypertension I10 ; Hyperlipidemia, unspecified E78.5 ; Anxiety F41.9 ; Moderate episode of recurrent major depressive disorder F33.1 ; Primary insomnia F51.01 ; Exposure to STD Z20.2 ; Encounter for hepatitis C screening test for low risk patient Z11.59 and History of herpes genitalis Z86.19 [facility] [address] [address]- 8644 17 Jan, 2016 [facility] [id number] [place] [address] 33832- 1370 Nov, [facility] [id number] [place] [address] 99790- 7900 Nov, Anxiety F41.9 ; Cervicalgia M54.2 ; Moderate episode of recurrent major depressive disorder F33.1 and Encounter for immunization Z23 [facility] [id number] [place] [address] 34677- 9492 Oct, [facility] [address] 21194- 4944 Oct, [facility] [address] 23736- 3937 16 Nov, 2015 [facility] [address] 07096- 3356 Oct, [facility] [id number] [place] [address] 45396- 1271 Sep, [facility] [id number] [place] [address] 38938- 4139 Aug, Low back pain M54.5 ; Anxiety F41.9 ; Primary insomnia F51.01 and Chronic prescription opiate use Z79.899 [facility] [id number] [place] [address] 72804- 1939 Jul, [facility] [id number] [place] [address] 02035- 6056 Jul, [facility] [id number] [place] [address] 06623- 7511 Jul, [facility] [id number] [place] [address] 13561- 7240 Jul, [facility] [id number] [place] [address] 48184- 2913 Jul, [facility] [id number] [place] [address] 39019- 1361 June, [facility] [address] [address]- 9700 June, [facility] [id number] [place] [address] 72157- 4588 June, [facility] [id number] [place] [address] 59178- 4281 June, [facility] [id number] [place] [address] 22427- 6445 May, Preoperative cardiovascular examination Z01.810 [facility] [id number] [place] [address] 91144- 2216 May, [facility] [id number] [place] [address] 99173- 4875 Apr, [facility] [id number] [place] [address] 98181- 6083 Apr, Osteoarthritis of right knee M17.9 [facility] [id number] [place] [address] 57741- 8279 30 May, 2015 [facility] [id number] [place] [address] 24867- 7506 16 May, 2015 [facility] [address] [id number] [place] [address] 52140- 3152 Apr, [facility] [id number] [place] [address] 78952- 9263 Apr, [facility] [id number] [place] [address] 31432- 0200 08 May, 2015 History of excessive cerumen Z78.9 ; Obstructive sleep apnea syndrome G47.33 ; History of diverticulitis Z87.19 and Nephrolithiasis N20.0 [facility] [address] [address]- 1970 Apr, [facility] [id number] [place] [address] 11060 -5105 Apr, Abdominal pain R10.9 [facility] [id number] [place] [address] 29399- 1091 10 Apr, 2015 [facility] [address] 55089- 9334 04 Apr, 2015 Osteoarthritis of right knee M17.9 [facility] [address] 91311- 8765 Mar, [facility] [address] 17474- 3653 Mar, [facility] [address] 05457- 3894 Mar, [place] [address] 78364- 3994 Mar, [facility] [address] 06492 -9542 Mar, Pyelonephritis N12 ; Left-sided thoracic back pain M54.6 ; Hematuria, unspecified R31.9 and Kidney stone N20.0 [place] [address] 05923- 3530 Mar, History of weight loss surgery Z98.84 [place] [address] [id number] [place] [address] 06278- 1688 Mar, History of weight loss surgery Z98.84 and Hyperlipidemia, unspecified E78.5 [place] [address] [id number] [place] [address] 99857- 7512 Mar, Low back pain M54.5 ; Chronic prescription opiate use Z79.899 ; Hyperlipidemia, unspecified E78.5 ; Spasm of back muscles M62.830 and History of weight loss surgery Z98.84 [facility] [address] [id number] [place] [address] 71335- 6628 Jan, [place] [address] 99802- 9930 Jan, [facility] [address] [address]- 4030 Jan, [facility] [address] [address]- 7651 Dec, [facility] [address] 0108 Dec, [facility] [id number] [place] [address] 929949- 4666 Dec, [facility] [id number] [place] [address] 596155- 1280 Nov, [facility] [id number] [place] [address] 01103- 2251 Nov, Obstructive sleep apnea syndrome G47.33 and Pharyngoesophageal dysphagia R13.14 [facility] [id number] [place] [address] 47261- 0024 Nov, [facility] [id number] [place] [address] 66141- 6347 Nov, [facility] [id number] [place] [address] 37260- 1051 Nov, [facility] [address] [address] 30 Oct, 2014 Dental examination V72.2 [facility] [address], [place] [address]- 3388 Oct, [facility] [address], [place] [address]- 3474 Oct, [facility] [id number] [place] [address] 60636- 0005 23 Oct, 2014 [facility] [address]- 6264 17 Oct, 2014 [facility] [id number] [place] [address] 72143- 7992 Oct, BPH (benign prostatic hyperplasia) 600.00 and Urinary frequency 788.41 [facility] [id number] [place] [address] 04394- 5688 Oct, [facility] [id number] [place] [address] 87293- 8178 Oct, [facility] [id number] [place] [address] 91559- 0099 Oct, [facility] [id number] [place] [address] 36568- 7914 Sep, Cerumen impaction 380.4 ; Cerumen debris on tympanic membrane 380.4 ; Psoriasis 696.1 and MICKY (secretory otitis media) 381.4 [facility] [id number] [place] [address] [id number] Sep, Dental examination V72.2 [facility] [id number] [place] [address] 37368- 4858 Sep, Fatigue 780.79 ; Irritable bowel syndrome 564.1 ; Overweight 278.02 ; Poor sleep V69.4 ; Shaking spells 781.0 and Broken tooth 873.63 [facility] [id number] [place] [address] 25227- 4936 Sep, [facility] [id number] [place] [address] 68931- 7468 Sep, [facility] [id number] [place] [address] 64510- 3107 Aug, [facility] [id number] [place] [address] 63315- 2247 Jul, [facility] [id number] [place] [address] 36526- 7596 Jul, [facility] [id number] [place] [address] 35572- 7041 Jul, [facility] [id number] [place] [address]- 7099 Jul, [facility] [address] [id number] [place] [address]- 0816 June, Arthritis of knee, right 716.96 [facility] [address] [id number] [place] [address]- 3606 June, [facility] [address] [id number] [place] [address]- 9425 June, Elevated blood pressure reading without diagnosis of hypertension 796.2 [facility] [address] [id number] [place] [address]- 5125 June, [facility] [address] [id number] [place] [address]- 7238 June, [facility] [id number] [place] [address]- 9272 June, [facility] [address] [id number] [place] [address]- 4691 June, [facility] [address] [id number] [place] [address]- 8275 May, [facility] [address] [id number] [place] [address]- 4329 May, [facility] [address] [id number] [place] [address]- 2068 Apr, [facility] [address] [id number] [place] [address]- 5786 Apr, [facility] [address] [id number] [place] [address]- 7625 Apr, [facility] [address] [id number] [place] [address]- 8588 Apr, [facility] [address] [id number] [place] [address]- 6170 Apr, [facility] [address] [id number] [place] [address]- 7720 Apr, 2014 [facility] [place] [facility] [address] [id number] [place] [address]- 8283 Apr, 2014 [facility] [place] [facility] [address] [id number] [place] [address]- 6989 Apr, 2014 [facility] [place] [facility] [address] [id number] [place] [address]- 3599 Apr, 2014 [facility] [place] [facility] [address] [id number] [place] [address]- 4957 Apr, 2014 [facility] [place] [facility] [address] [id number] [place] [address]- 0895 Apr, 2014 [facility] [place] [facility] [address] [facility] [id number] [place] [address]- 5543 Apr, 2014 [facility] [place] [facility] [address] [facility] [id number] [place] [address]- 7908 Apr, 2014 [facility] [place] [facility] [address] [id number] [place] [address]- 5257 Apr, 2014 [facility] [place] [facility] [address] [facility] [id number] [place] [address]- 5211 Apr, 2014 [facility] [place] [facility] [address] [facility] [id number] [place] [address] Apr, 2014 [facility] [place] [facility] [address] [facility] [id number] [address] Apr, 2014 [facility] [place] [facility] [address] [facility] [id number] [place] [address] Apr, 2014 [facility] [place] [facility] [address] [facility] [id number] [place] [address] Apr, 2014 [facility] [place] [facility] [address] [facility] [id number] [place] [address] Apr, 2014 [facility] [place] [facility] [address] [facility] [id number] [place] [address] Apr, 2014 [facility] [place] [facility] [address] [id number] [place] [address] Apr, 2014 [facility] [place] [facility] [address] [id number] [place] [address] Apr, 2014 [facility] [place] [facility] [address] [facility] [id number] [place] [address] Apr, 2014 [facility] [place] [facility] [address] [id number] [place] [address] Apr, 2014 [facility] [place] [facility] [address] [id number] [place] [address] Apr, 2014 [facility] [place] [facility] [address] [facility] [id number] [place] [address] Apr, 2014 [facility] [place] [facility] [id number] [place] [address] Apr, 2014 [facility] [place] [facility] [address] [facility] [id number] [place] [address] Apr, 2014 [facility] [place] [facility] [address] [facility] [id number] [place] [address] Apr, 2014 [facility] [place] [facility] [address] [facility] [id number] [place] [address] Apr, 2014 [facility] [place] [facility] [address] [facility] [id number] [place] [address] Apr, 2014 [facility] [place] [facility] [address] [facility] [id number] [place] [address] Apr, 2014 [facility] [place] [facility] [address] [facility] [id number] [place] [address] Mar, [facility] [place] [facility] [address] [facility] [id number] [place] [address] 9784 Mar, [facility] [place] [facility] [address] [facility] [id number] [place] [address] 56[address] Mar, [facility] [place] [facility] [address] [id number] [place] [address] 5091 Mar, [facility] [place] [facility] [address] [id number] [place] [address]- 8789 Mar, [facility] [place] [facility] [address] [id number] [place] [address] 8667 Mar, [facility] [place] [facility] [address] [id number] [place] [address]- 0359 Mar, [facility] [place] [facility] [address] [id number] [place] [address]- 0350 Mar, [facility] [place] [facility] [address] [id number] [place] [address] 3977 Mar, [facility] [place] [facility] [address] [id number] [place] [address]- 4943 Mar, [facility] [place] [facility] [address] [id number] [place] [address] 1531 Jan, [facility] [place] [facility] [address] [id number] [place] [address]- 2409 Jan, [facility] [place] [facility] [address] [id number] [place] [address]- 1452 Jan, [facility] [place] [facility] [address] [id number], [place] [address] Jan, [facility] [place] [facility] [address] [id number], [place] [address]- 9144 Jan, [facility] [place] [facility] [address] [id number] [place] [address]- 3150 Jan, [facility] [place] [facility] [address] [id number] [place] [address]- 6681 Jan, [facility] [place] [facility] [address] [id number] [place] [address]- 5232 Jan, [facility] [place] [facility] [address] [id number] [place] [address]- 1021 05 Jan, 2014 [facility] [place] [facility] [address] [id number] [place] [address]- 9744 05 Jan, 2014 [facility] [place] [facility] [address] [id number] [place] [address]- 2422 Jan, [facility] [place] [facility] [address] [id number] [place] [address]- 0406 Jan, [facility] [place] [facility] [address] [id number] [place] [address]- 9576 Dec, [facility] [place] [facility] [address] [id number] [place] [address]- 8598 Dec, [facility] [place] [facility] [address] [id number] [place] [address]- 4699 Dec, [facility] [place] [facility] [address] [id number] [place] [address]- 1526 Dec, [facility] [place] [facility] [address] [id number] [place] [address]- 9314 Dec, [facility] [place] [facility] [address] [id number] [place] [address]- 5482 Dec, [facility] [place] [facility] [address] [facility] [id number] [place] [address]- 4402 Dec, [facility] [place] [facility] [address] [id number] [place] [address]- 0682 Dec, [facility] [place] [facility] [address] [id number] [place] [address]- 2702 Dec, [facility] [place] [facility] [address] [id number] [place] [address]- 7744 Dec, [facility] [place] [facility] [address] [id number] [place] [address]- 8544 Nov, [facility] [place] [facility] [address] [id number] [place] [address]- 4749 Nov, [facility] [place] [facility] [address] [id number] [place] [address]- 2327 Nov, 2013 [facility] [place] [facility] [address] [id number] [place] [address]- 9201 Nov, [facility] [place] [facility] [address] [id number] [place] [address]- 0668 Nov, [facility] [place] [facility] [address] [id number] [place] [address]- 1507 Nov, [facility] [place] [facility] [address] [id number] [place] [address]- 9129 Nov, [facility] [place] [facility] [address] [id number] [place] [address]- 3134 Nov, [facility] [place] [facility] [address] [id number] [place] [address]- 4288 Nov, [facility] [place] [facility] [address] [id number] [place] [address]- 0180 Nov, [facility] [place] [facility] [address] [id number] [place] [address]- 6225 Nov, [facility] [place] [facility] [address] [id number] [place] [address]- 7250 17 Nov, 2013 [facility] [place] [facility] [address] [id number] [place] [address]- 0612 14 Nov, 2013 [facility] [place] [facility] [address] [id number] [place] [address]- 7907 14 Nov, 2013 [facility] [place] [facility] [address] [id number] [place] [address]- 9543 10 Nov, 2013 [facility] [place] [facility] [address] [id number] [place] [address]- 7466 10 Nov, 2013 [facility] [place] [facility] [address] [id number] [place] [address]- 1634 08 Nov, 2013 [facility] [place] [facility] [address] [id number], [place] [address]- 4029 Nov, [facility] [place] [facility] [address] [id number] [place] [address]- 5219 Nov, [facility] [place] [facility] [address] [id number] [place] [address]- 8821 Nov, [facility] [place] [facility] [address] [id number] [place] [address]- 5523 Oct, [facility] [place] [facility] [address] [id number] [place] [address]- 5033 Oct, [facility] [place] [facility] [address] [id number] [place] [address]- 9096 Oct, [facility] [place] [facility] [address] [id number] [place] [address]- 3261 Oct, [facility] [place] [facility] [address] [id number] [place] [address]- 3954 Oct, [facility] [place] [facility] [address] [id number] [place] [address]- 1436 Oct, [facility] [place] [facility] [address] [id number] [place] [address]- 9273 Oct, [facility] [place] [facility] [address] [id number] [place] [address]- 4194 Oct, [facility] [place] [facility] [address] [id number] [place] [address]- 2081 Oct, [facility] [place] [facility] [address] [id number] [place] [address]- 8242 Oct, [facility] [place] [facility] [address] [id number] [place] [address]- 7524 Sep, [facility] [place] [facility] [address] [id number] [place] [address]- 4858 Sep, [facility] [place] [facility] [address] [id number] [place] [address]- 9070 Sep, [facility] [place] [facility] [address] [id number] [place] [address]- 2174 Sep, [facility] [place] [facility] [address] [id number] [place] [address]- 1507 Sep, [facility] [place] [facility] [address] [id number] [place] [address]- 1185 Sep, [facility] [place] [facility] [address] [id number] [place] [address]- 2242 Sep, [facility] [place] [facility] [address] [id number] [place] [address]- 3367 Sep, [facility] [place] [facility] [address] [id number] [place] [address]- 1385 Sep, [facility] [place] [facility] [address] [id number] [place] [address]- 1151 Sep, [facility] [place] [facility] [address] [id number] [place] [address]- 4026 Sep, [facility] [place] [facility] [address] [id number] [place] [address]- 9410 Sep, [facility] [place] [facility] [address] [id number] [place] [address]- 7480 Sep, [facility] [place] [facility] [address] [id number] [place] [address]- 2593 Sep, [facility] [place] [facility] [address] [id number] [place] [address]- 2158 Sep, [facility] [place] [facility] [address] [id number] [place] [address]- 8408 Sep, [facility] [place] [facility] [address] [id number] [place] [address]- 4111 Sep, [facility] [place] [facility] [address] [id number] [place] [address]- 5337 Sep, [facility] [place] [facility] [address] [id number] [place] [address]- 1261 Sep, [facility] [place] [facility] [address] [id number] [place] [address]- 6266 Sep, [facility] [place] [facility] [address] [id number] [place] [address]- 2116 Sep, [facility] [place] [facility] [address] [id number] [place] [address]- 6046 Sep, [facility] [place] [facility] [address] [id number] [place] [address]- 1145 Sep, [facility] [place] [facility] [address] [id number] [place] [address]- 6375 Sep, [facility] [place] [facility] [address] [id number] [place] [address]- 2965 Sep, [facility] [place] [facility] [address] [id number] [place] [address]- 1706 Aug, [facility] [place] [facility] [address] [id number] [place] [address]- 4646 Aug, [facility] [place] [facility] [address] [id number] [place] [address]- 7594 Aug, [facility] [place] [facility] [address] [id number] [place] [address]- 0952 Aug, [facility] [place] [facility] [address] [id number] [place] [address]- 0949 Aug, [facility] [place] [facility] [address] [id number] [place] [address]- 8302 Aug, [facility] [place] [facility] [address] [id number] [place] [address]- 6652 Aug, [facility] [place] [facility] [address] [id number] [place] [address]- 3328 Aug, [facility] [place] [facility] [address] [id number] [place] [address]- 9581 Aug, [facility] [place] [facility] [address] [id number] [place] [address]- 2714 Aug, [facility] [place] [facility] [address] [id number] [place] [address]- 0456 Aug, [facility] [place] [facility] [address] [id number] [place] [address]- 8488 Aug, [facility] [place] [facility] [address] [id number] [place] [address]- 3666 Aug, [facility] [place] [facility] [address] [id number] [place] [address]- 5621 Jul, [facility] [place] [facility] [address] [id number] [place] [address]- 5826 Jul, [facility] [place] [facility] [address] [id number] [place] [address]- 7834 Jul, [facility] [place] [facility] [address] [id number] [place] [address]- 6299 Jul, [facility] [place] [facility] [address] [id number] [place] [address]- 2533 Jul, [facility] [place] [facility] [address] [id number] [place] [address]- 1563 Jul, [facility] [place] [facility] [address] [id number] [place] [address]- 4118 Jul, [facility] [place] [facility] [address] [id number] [place] [address]- 1066 June, [facility] [place] [facility] [address] [id number] [place] [address]- 0463 June, [facility] [place] [facility] [address] [id number] [place] [address]- 1282 June, [facility] [place] [facility] [address] [id number] [place] [address]- 1238 June, [facility] [place] [facility] [address] [id number] [place] [address]- 5454 May, [facility] [place] [facility] [address] [id number] [place] [address]- 1012 May, [facility] [place] [facility] [address] [id number] [place] [address]- 6061 May, [facility] [place] [facility] [address] [id number] [place] [address]- 2156 May, [facility] [place] [facility] [address] [id number] [place] [address]- 4008 May, [facility] [place] [facility] [address] [id number] [place] [address]- 2065 May, [facility] [place] [facility] [address] [id number] [place] [address]- 7901 May, [facility] [place] [facility] [address] [id number] [place] [address]- 6618 May, [facility] [place] [facility] [address] [id number] [place] [address]- 9575 May, [facility] [place] [facility] [address] [id number] [place] [address]- 8963 May, [facility] [place] [facility] [address] [id number] [place] [address]- 9292 Apr, [facility] [place] [facility] [address] [id number] [place] [address]- 4533 Apr, [facility] [place] [facility] [address] [id number] [place] [address]- 8892 Apr, [facility] [place] [facility] [address] [id number] [place] [address]- 6937 Apr, [facility] [place] [facility] [address] [id number] [place] [address]- 3051 Apr, [facility] [place] [facility] [address] [id number] [place] [address] Apr, [facility] [place] [facility] [address] [id number] [place] [address]- 1267 Apr, [facility] [address] [id number] [place] [address]- 1898 Apr, [facility] [place] [facility] [address] [id number] [place] [address]- 4758 Apr, [facility] [place] [facility] [address] [id number] [place] [address]- 9106 Apr, [facility] [place] [facility] [address] [id number] [place] [address]- 3776 Mar, [facility] [place] [facility] [address] [id number] [place] [address]- 6512 Mar, [facility] [address] [id number] [place] [address]- 9772 Mar, [facility] [address] [id number] [place] [address]- 9933 Mar, [facility] [place] [facility] [address] [id number] [place] [address]- 7022 Mar, [facility] [address] [id number] [place] [address]- 4210 Mar, [facility] [place] [facility] [address] [facility] [id number] [place] [address]- 7860 Jan, [facility] [place] [facility] [address] [id number] [place] [address]- 1082 Jan, [facility] [place] [facility] [address] [id number], [place] [address]- 8837 Jan, [facility] [place] [facility] [address] [id number] [place] [address]- 3865 Jan, [facility] [place] [facility] [address] [id number] [place] [address]- 7130 Jan, [facility] [place] [facility] [address] [id number] [place] [address]- 0679 Jan, [facility] [place] [facility] [address] [id number] [place] [address]- 0922 Jan, [facility] [address] [id number] [place] [address]- 2554 Jan, [facility] [place] [facility] [address] [id number] [place] Jan, [facility] [place] [facility] [address] [id number] [place] [address]- 3225 Dec, [facility] [place] [facility] [address] [id number] [place] [address]- 2731 Dec, [facility] [place] [facility] [address] [id number] [place] [address]- 8998 Dec, [facility] [place] [facility] [address] [id number] [place] [address]- 4726 Dec, [facility] [place] [facility] [address] [id number] [place] [address]- 6392 Dec, [facility] [address] [id number] [place] [address]- 0515 Dec, [facility] [place] [facility] [address] [id number] [place] [address]- 1643 Dec, [facility] [place] [facility] [address] [facility] [id number] [place] [address]- 1099 Dec, [facility] [place] [facility] [address] [id number] [place] [address]- 3920 Dec, [facility] [place] [facility] [address] [id number] [place] [address]- 9364 Dec, [facility] [place] [facility] [address] [id number] [place] [address]- 4437 Dec, [facility] [place] [facility] [address] [id number] [place] [address]- 4638 Nov, [facility] [place] [facility] [address] [id number] [place] [address]- 5436 Nov, [facility] [address] [id number] [place] [address]- 3743 Nov, [facility] [place] [facility] [address] [id number] [place] [address]- 9420 Nov, [facility] [place] [facility] [address] [id number] [place] [address]- 9569 Nov, [facility] [place] [facility] [address] [id number] [place] [address]- 7256 Oct, [facility] [place] [facility] [address] [id number] [place] [address]- 3491 Oct, [facility] [place] [facility] [address] [id number] [place] [address]- 4463 Sep, [facility] [place] [facility] [address] [id number] [place] [address]- 2119 Aug, [facility] [place] [facility] [address] [id number] [place] [address]- 5715 Aug, [facility] [place] [facility] [address] [id number] [place] [address]- 2816 Aug, [facility] [place] [facility] [address] [id number], [place] [address]- 8791 Aug, [facility] [place] [facility] [address] [id number] [place] [address]- 1969 Jul, [facility] [place] [facility] [address] [id number], [place] [address]- 5748 Jul, [facility] [place] [facility] [address] [id number] [place] [address]- 8218 June, [facility] [place] [facility] [address] [id number] [place] [address]- 1663 June, [facility] [place] [facility] [address] [id number] [place] [address]- 3163 June, [facility] [place] [facility] [address] [id number] [place] [address]- 8770 08 May, 2012 [facility] [address] [id number] [place] [address]- 4103 04 May, 2012 [facility] [place] [facility] [address] [facility] [id number] [place] [address]- 6910 May, [facility] [address] [facility] [id number] [place] [address]- 7966 18 Apr, 2012 [facility] [place] [facility] [address] [facility] [id number] [place] [address]- 7684 18 Apr, 2012 [facility] [address] [id number] [place] [address]- 3003 15 Apr, 2012 [facility] [place] [facility] [address] [facility] [id number] [place] [address]- 3938 14 Apr, 2012 [facility] [address] [id number] [place] [address]- 8959 12 Apr, 2012 [facility] [place] [facility] [address] [facility] [id number] [place] [address]- 4684 27 Apr, 2012 [facility] [place] [facility] [id number] [place] [address]- 6373 25 Apr, 2012 [facility] [place] [facility] [address] [id number] [place] [address]- 9242 25 Apr, 2012 [facility] [place] [facility] [id number] [place] [address]- 1547 21 Apr, 2012 [facility] [place] [facility] [address] [facility] [id number] [place] [address] 20 Apr, 2012 [facility] [place] [facility] [address] [facility] [id number] [place] [address] 19 Apr, 2012 [facility] [place] [facility] [address] [facility] [id number] [place] [address] 8851 07 Apr, 2012 [facility] [place] [facility] [id number] [place] [address] 07 Apr, 2012 [facility] [address] [id number] [place] [address] Mar, [facility] [place] [facility] [address] [id number] [place] [address] Mar, [facility] [address] [id number] [place] [address] Mar, [facility] [place] [facility] [address] [id number] [place] [address] Mar, [facility] [address] [id number] [place] [address] 6153 Mar, [facility] [address] [id number] [place] [address] 9480 Jan, [facility] [address] [id number] [place] [address] 68[address] Jan, [facility] [address] [id number] [place] [address] 5460 Jan, [facility] [address] [id number] [place] [address] 3447 Jan, [facility] [address] [id number] [place] [address] 7447 14 Jan, 2012 [facility] [place] [facility] [address] [id number] [place] [address]- 5786 Jan, [facility] [place] [facility] [address] [id number] [place] [address] 6608 13 Jan, 2012 [facility] [place] [facility] [address] [id number] [place] [address]- 9982 11 Jan, 2012 [facility] [place] [facility] [address] [id number] [place] [address]- 3836 06 Jan, 2012 [facility] [place] [facility] [address] [id number] [place] [address]- 1585 06 Jan, 2012 [facility] [place] [facility] [address] [id number] [place] [address]- 7768 04 Jan, 2012 [facility] [place] [facility] [address] [id number] [place] [address]- 3063 04 Jan, 2012 [facility] [place] [facility] [address] [id number] [place] [address]- 0335 Jan, [facility] [place] [facility] [address] [id number] [place] [address]- 8190 Jan, [facility] [place] [facility] [address] [id number] [place] [address]- 7111 26 Jan, 2012 [facility] [place] [facility] [address] [id number] [place] [address]- 6968 26 Jan, 2012 [facility] [place] [facility] [address] [id number] [place] [address]- 0901 Dec, [facility] [place] [facility] [address] [id number] [place] [address]- 7206 19 Jan, 2012 [facility] [place] [facility] [address] [id number] [place] [address]- 0864 15 Jan, 2012 [facility] [place] [facility] [address] [id number] [place] [address] 0853 15 Jan, 2012 [facility] [place] [facility] [address] [facility] [id number] [place] [address]- 4193 14 Jan, 2012 [facility] [place] [facility] [address] [id number] [place] [address]- 5055 14 Jan, 2012 [facility] [place] [facility] [address] [id number] [address] 14 Jan, 2012 [facility] [place] [facility] [address] [id number] [place] [address]- 7553 14 Jan, 2012 [facility] [place] [facility] [address] [id number] [place] [address]- 9933 07 Jan, 2012 [facility] [place] [facility] [address] [facility] [id number] [address]- [address]87 07 Jan, 2012 [facility] [place] [facility] [address] [id number] [place] [address]- 6384 16 Dec, 2011 [facility] [place] [facility] [address] [id number] [place] [address]- 0405 16 Dec, 2011 [facility] [place] [facility] [address] [id number] [place] [address]- 0766 13 Nov, 2011 [facility] [place] [facility] [address] [id number] [place] [address]- 4846 13 Nov, 2011 [facility] [place] [facility] [address] [id number] [place] [address]- 1691 13 Nov, 2011 [facility] [place] [facility] [address] [id number] [place] [address]- 8424 Oct, [facility] [place] [facility] [address] [id number] [place] [address]- 9641 Sep, [facility] [place] [facility] [address] [id number] [place] [address]- 9692 Sep, [facility] [place] [facility] [address] [id number] [place] [address]- 8676 Aug, [facility] [place] [facility] [address] [id number] [place] [address]- 6443 Aug, [facility] [place] [facility] [address] [id number] [place] [address]- 3932 Aug, [facility] [place] [facility] [address] [id number] [place] [address]- 9789 Aug, [facility] [place] [facility] [address] [id number] [place] [address] June, [facility] [place] [facility] [address] [id number] [place] [address]- 4141 June, [facility] [place] [facility] [address] [id number] [place] [address] 0017 May, [facility] [place] [facility] [address] [id number] [place] [address]- 0324 Apr, [facility] [address] [id number] [place] [address]- 7815 Apr, [facility] [place] [facility] [address] [id number] [place] [address]- 9087 Apr, [facility] [place] [facility] [address] [id number] [place] [address]- 0888 Apr, [facility] [place] [facility] [address] [id number] [place] [address]- 6094 Apr, [facility] [place] [facility] [address] [id number] [place] [address]- 7718 Apr, [facility] [place] [facility] [address] [id number] [place] [address]- 8440 Mar, [facility] [place] [facility] [address] [id number] [place] [address]- 1026 Mar, [facility] [place] [facility] [address] [id number] [place] [address]- 6617 Mar, [facility] [place] [facility] [address] [id number] [place] [address]- 6654 Jan, [facility] [place] [facility] [address] [id number] [place] [address]- 5063 Jan, [facility] [place] [facility] [address] [id number] [place] [address]- 1746 Jan, [facility] [place] [facility] [address] [id number] [place] [address]- 1108 Jan, [facility] [place] [facility] [address] [id number] [place] [address]- 7543 Jan, [facility] [place] [facility] [address] [id number] [place] [address] Jan, [facility] [place] [facility] [address] [id number] [place] [address]- 4438 Jan, [facility] [place] [facility] [address] [id number] [place] [address]- 9334 Dec, [facility] [place] [facility] [address] [id number] [place] [address]- 4006 Dec, [facility] [place] [facility] [address] [id number] [place] [address]- 0930 Nov, [facility] [place] [facility] [address] [id number] [place] [address]- 8234 Nov, [facility] [place] [facility] [address] [id number] [place] [address]- 1744 Nov, [facility] [place] [facility] [address] [id number] [place] [address], [place] [address] Nov, [facility] [place] [facility] [address] [id number] [place] [address] Oct, [facility] [place] [facility] [address] [id number] [place] [address] Sep, [facility] [place] [facility] [address] [id number] [place] [address] Mar, [facility] [place] [facility] [address] [id number] [place] [address] Jan, [facility] [place] [facility] [address] [id number] [place] [address] Dec, [facility] [place] [facility] [address] [id number] [place] [address] Dec, [facility] [place] [facility] [address] [id number] [place] [address] Dec, [facility] [place] [facility] [address] [id number] [place] [address] Dec, [facility] [place] [facility] [address] [id number] [place] [address] Nov, [facility] [place] [facility] [address] [id number] [place] [address] 15 Nov, 2009 [facility] [address] [id number] [place] [address] 14 Nov, 2009 [facility] [place] [facility] [address] [id number] [place] [address] 14 Nov, 2009 [facility] [place] [facility] [address] [id number] [place] [address] 13 Oct, 2009 [facility] [place] [facility] [address] [id number] [place] [address] 17 Jul, 2009 [facility] [place] [facility] [address] [id number] [place] [address] June, [facility] [place] [facility] [address] [id number] [place] [address] June, [facility] [place] [facility] [address] [id number] [place] [address] 17 Apr, 2009 [facility] [place] [facility] [address] [id number], [place] [address] Mar, [facility] [place] [facility] [address] [id number] [place] [address] 24 Jan, 2009 [facility] [place] [facility] [address] [id number], [place] [address] Jan, [facility] [place] [facility] [address] [id number], [place] [address] 27 Dec, 2008 [facility] [place] [facility] [address] [id number], [place] [address] 25 Dec, 2008 [facility] [place] [facility] [address] [id number] [place] [address] 13 Dec, 2008 [facility] [place] [facility] [address] [id number], [place] [address] 13 Dec, 2008 [facility] [place] [facility] [address] [id number] [place] 30 Nov, 2008 [facility] [place] [facility] [address] [id number] [place] [address] Jul, [facility] [address] [facility] [id number] [place] [address] June, IMMUNIZATIONS No Known Immunizations SOCIAL HISTORY Never Assessed REASON FOR VISIT Requests return call PLAN OF CARE VITAL SIGNS MEDICATIONS Unknown Medications RESULTS No Results PROCEDURES No Known procedures INSTRUCTIONS MEDICATIONS ADMINISTERED No Known Medications MEDICAL (GENERAL) HISTORY Type Description Date Medical History hypertension Medical History sleep apnea-did not tolerate CPAP Medical History oxygen dependent at [facility] Medical History colonic polyps Medical History [...]
--- OUTSIDE RECORDS SUMMARY | 2018-02-26 19:11 | XMS REPORT ---
Author Author GRAHAM CHRIS [facility] Address [address] [place] [address] Care Team Providers Care [employer]re Storage Drier Name Role Phone GRAHAMELLIOTT HANNAHANY Unavailable PROBLEMS Type Condition ICD9-CM Code ICR91-DB Code Onset Dates Condition Status SNOMED Code Problem Pulmonary asbestosis J61 Active 46307902 Problem Left ventricular diastolic dysfunction I51.9 Active 285792474 Problem Chronic gout, unspecified cause, unspecified site M1A.[id number] Active 52454139 Problem Renal cyst, left N28.1 Active 41212711 Problem History of weight loss surgery Z98.84 Active 386822371 Problem Nocturnal hypoxia G47.34 Active 755406776 Problem Obstructive sleep apnea syndrome G47.33 Active 70204691 Problem History of diverticulitis Z87.19 Active 443977061802524 Problem Allergic rhinitis, unspecified allergic rhinitis type J30.9 Active 64797016 Problem Erectile dysfunction due to diseases classified elsewhere N52.1 Active 935607225 Problem Acute right-sided low back pain with right-sided sciatica M54.41 Active 129092493 Problem Psoriasis L40.9 Active 1626332 Problem Essential hypertension I10 Active 26167862 Problem Nephrolithiasis N20.0 Active 35498986 Problem Chronic prescription opiate use Z79.899 Active 274884512 Problem 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 Active 73099022 Problem Benign prostatic hyperplasia, presence of lower urinary tract symptoms unspecified, unspecified morphology N40.0 Active 089053049 Problem Moderate episode of recurrent major depressive disorder F33.1 Active 191329362 Problem Age-related osteoporosis without current pathological fracture M81.0 Active 54589676 Problem Low back pain M54.5 Active 031626046 Problem Anxiety F41.9 Active 28367166 Problem Urge incontinence N39.41 Active 093708603 Problem Hyperlipidemia, unspecified E78.5 Active 92795693 Problem Esophageal stricture K22.2 Active 28197428 Problem Cervicalgia M54.2 Active 1161667426926 Problem Primary insomnia F51.01 Active 186506870 ALLERGIES No Information ENCOUNTERS Encounter Location Date Diagnosis [facility], [place] [id number] [place] [address] 04007- 3308 June, [facility], [place] [id number] [place] [address] 11127- 0419 May, [facility], [place] [address] 24594- 3889 May, [facility], [place] [id number] [place] [address] 92286- 6159 Apr, Anxiety F41.9 [facility], [place] [address] 68156- 2575 Apr, [facility], [place] [address] 23408- 0657 Apr, Low back pain M54.5 [facility], [place] [id number] [place] [address] 03230- 9549 Apr, [facility], [place] [id number] [place] [address] 76525- 0044 Apr, [facility], [place] [id number] [place] [address] 86728- 6197 Apr, Anxiety F41.9 [facility], [place] [id number] [place] [address] 69504- 2401 Apr, Right groin pain R10.31 [facility], [place] [id number] [place] [address] 31384- 4196 Mar, [facility], [place] [address] 79820- 7466 Mar, [facility], [place] [id number] [place] [address] 87757- 7897 Mar, Anxiety F41.9 [facility], [place] [address] 49708- 0499 Mar, Low back pain M54.5 [facility] [id number] [place] [address] 74183- 0259 Mar, Right groin pain R10.31 ; Low back pain M54.5 and BMI 45.0- 49.9, adult Z68.42 [facility] [id number] [place] [address] 74046- 1347 Mar, [facility] [id number] [place] [address] 64788- 2781 Mar, [facility] [id number] [place] [address] 63630- 8768 Mar, [facility] [id number] [place] [address] 05181 -5089 Mar, [facility] [id number] [place] [address] 01983 -6542 Mar, Cough R05 ; Pneumonia of right lower lobe due to infectious organism J18.1 and Abnormal chest x-ray R93.8 [facility] [id number] [place] [address] 43401- 3475 Mar, [facility] [id number] [place] [address] 34038- 9326 Mar, [facility] [id number] [place] [address] 21103- 5701 Jan, Anxiety F41.9 [facility] [id number] [place] [address] 84023- 9089 Jan, [facility] [id number] [place] [address] 37154- 9019 Jan, Moderate episode of recurrent major depressive disorder F33.1 [facility] [id number] [place] [address] 70784- 7127 Jan, Subacromial bursitis of right shoulder joint M75.51 ; Shortness of breath on exertion R06.02 and BMI 45.0-49.9, adult Z68.42 [facility], [place] [id number] [place] [address] 23246- 3016 Dec, Anxiety F41.9 [facility], [place] [id number] [place] [address] 84572- 2784 Dec, [facility], [place] [id number] [place] [address] 05985- 6777 Dec, Low back pain M54.5 [facility], [place] [id number] [place] [address] 15044- 3656 Oct, Low back pain M54.5 [facility], [place] [id number] [place] [address] 53537- 7907 Sep, [facility], [place] [id number] [place] [address] 00323- 3168 Sep, Erectile dysfunction due to diseases classified elsewhere N52.1 [facility], [place] [id number] [place] [address] 13851- 0779 Sep, Erectile dysfunction due to diseases classified elsewhere N52.1 [facility], [place] [id number] [place] [address] 63477- 1405 Sep, [facility], [place] [id number] [place] [address] 77578- 2382 Sep, Erectile dysfunction due to diseases classified elsewhere N52.1 [facility], [place] [id number] [place] [address] 20725- 4511 Sep, Low back pain M54.5 and Anxiety F41.9 [facility] [id number] [place] [address] 13331 -6195 Aug, Acute allergic rhinitis J30.9 [facility], [place] [id number] [place] [address] 27024- 1318 Aug, [facility], [place] [id number] [place] [address] 28711- 1220 Aug, Anxiety F41.9 [facility], [place] [id number] [place] [address] 31608- 3580 Jul, Low back pain M54.5 ; Chronic prescription opiate use Z79.899 and Essential hypertension I10 [facility], [place] [id number] [place] [address] 75408- 3695 Jul, Anxiety F41.9 and Low back pain M54.5 [facility], [place] [id number] [place] [address] 73005- 2327 June, [facility], [place] [id number] [place] [address] 78807- 0524 June, Anxiety F41.9 [facility], [place] [id number] [place] [address] 40770- 8136 May, Low back pain M54.5 [facility], [place] [id number] [place] [address] 34655- 1836 May, [facility], [place] [id number] [place] [address] 57069- 4494 May, Anxiety F41.9 [facility], [place] [id number] [place] [address] 78039- 0838 Apr, [facility], [place] [id number] [place] [address] 47496- 8551 Apr, Low back pain M54.5 [facility], [place] [id number] [place] [address] 23448- 2543 Apr, Moderate episode of recurrent major depressive disorder F33.1 [facility], [place] [id number] [place] [address] 61093- 3728 Apr, Anxiety F41.9 [facility], [place] [id number] [place] [address] 07258- 9171 Apr, Low back pain M54.5 [facility], [place] [id number] [place] [address] 38657- 4353 15 Apr, 2016 Elevated alkaline phosphatase level R74.8 [facility] [id number] [place] [address] 63875- 2852 10 Apr, 2016 Alkaline phosphatase elevation R74.8 [facility] [id number] [place] [address] 12916- 8848 06 Apr, 2016 Anxiety F41.9 [facility] [id number] [place] [address] 89807- 9694 03 Apr, 2016 Low back pain M54.5 [facility] [id number] [place] [address] 17065- 9749 03 Apr, 2016 History of weight loss surgery Z98.84 ; Encounter for hepatitis C screening test for low risk patient Z11.59 ; History of herpes genitalis Z86.19 ; Essential hypertension I10 ; Hyperlipidemia, unspecified E78.5 ; Exposure to STD Z20.2 and Benign prostatic hyperplasia, presence of lower urinary tract symptoms unspecified, unspecified morphology N40.0 [facility] [id number] [place] [address] 27735- 6994 02 Apr, 2016 [facility] [id number] [place] [address] 80180- 5478 Mar, [facility] [id number] [place] [address] 51656- 3449 Mar, [facility] [id number] [place] [address] 04556- 7496 Mar, [facility] [id number] [place] [address] 42281- 6068 Mar, Acute right-sided low back pain with right-sided sciatica M54.41 [facility] [id number] [place] [address] 99523- 5792 Mar, Low back pain M54.5 [facility] [id number] [place] [address] 65528 -4847 Mar, Muscle strain of chest wall, initial encounter S29.011A ; Muscle strain of right thigh, initial encounter S76.911A and Acute non- recurrent maxillary sinusitis J01.00 [facility] [id number] [place] [address] 56300- 1199 Mar, Benign prostatic hyperplasia, presence of lower urinary tract symptoms unspecified, unspecified morphology N40.0 [facility] [id number] [place] [address] 50633- 6540 Jan, Low back pain M54.5 [facility] [id number] [place] [address] 55037- 7810 Jan, Low back pain M54.5 ; Essential hypertension I10 ; Hyperlipidemia, unspecified E78.5 ; Anxiety F41.9 ; Moderate episode of recurrent major depressive disorder F33.1 ; Primary insomnia F51.01 ; Exposure to STD Z20.2 ; Encounter for hepatitis C screening test for low risk patient Z11.59 and History of herpes genitalis Z86.19 [facility] [id number] [place] [address] 49818- 0723 17 Jan, 2016 [facility] [id number] [place] [address] 49309- 6249 Nov, [facility] [id number] [place] [address] 81103- 0139 14 Dec, 2015 Anxiety F41.9 ; Cervicalgia M54.2 ; Moderate episode of recurrent major depressive disorder F33.1 and Encounter for immunization Z23 [facility] [id number] [place] [address] 55181- 8684 Oct, [facility] [id number] [place] [address] 29640- 6932 Oct, [facility] [id number] [place] [address] 85676- 1627 16 Nov, 2015 [facility] [id number] [place] [address] 73497- 9288 09 Nov, 2015 [facility] [id number] [address]- 2736 Sep, [facility], [place] [id number] [place] [address] 80694- 3650 Aug, Low back pain M54.5 ; Anxiety F41.9 ; Primary insomnia F51.01 and Chronic prescription opiate use Z79.899 [facility], [place] [address] [address]- 5806 Jul, [facility], [place] [id number] [address]- 5694 Jul, [facility], [place] [id number] [place] [address] 91062- 6818 Jul, [facility], [place] [id number] [place] [address] 61271- 2871 Jul, [facility], [place] [id number] [place] [address] 83805- 0903 Jul, [facility], [place] [address] [address]- 1147 June, [facility], [place] [address] [address]- 5436 June, [facility], [place] [address] [address]- 3913 June, [facility], [place] [address] [address]- 2335 June, [facility], [place] [address] [address]- 5074 May, Preoperative cardiovascular examination Z01.810 [facility], [place] [address] [address]- 1874 May, [facility], [place] [address] [address]- 6685 Apr, [facility], [place] [address] [address]- 6201 31 May, 2015 Osteoarthritis of right knee M17.9 [facility], [place] [id number] [place] [address] 12570- 9191 30 May, 2015 [facility], [place] [id number] [place] [address] 92889- 3081 16 May, 2015 [facility], [place] [id number] [place] [address] 58989- 3739 Apr, [facility], [place] [id number] [place] [address] 13245- 4174 09 May, 2015 [facility], [place] [id number] [place] [address] 35209- 6618 08 May, 2015 History of excessive cerumen Z78.9 ; Obstructive sleep apnea syndrome G47.33 ; History of diverticulitis Z87.19 and Nephrolithiasis N20.0 [facility], [place] [id number] [place] [address] 44917- 7135 Apr, [facility] [id number] [place] [address] 54009 -9583 23 Apr, 2015 Abdominal pain R10.9 [facility], [place] [id number] [place] [address] 07749- 0660 10 Apr, 2015 [facility], [place] [id number] [place] [address] 48055- 3745 04 Apr, 2015 Osteoarthritis of right knee M17.9 [facility], [place] [id number] [place] [address] 98283- 5479 Mar, [facility], [place] [id number] [place] [address] 59109- 1308 Mar, [facility], [place] [id number] [place] [address] 60032- 2674 14 Mar, 2015 [facility], [place] [id number] [place] [address] 96120- 8128 Mar, [facility] [id number] [place] [address] -2374 13 Mar, 2015 Pyelonephritis N12 ; Left-sided thoracic back pain M54.6 ; Hematuria, unspecified R31.9 and Kidney stone N20.0 [facility], [place] [id number] [place] [address] 62006- 5920 12 Mar, 2015 History of weight loss surgery Z98.84 [facility], [place] [address] 48053 2542 07 Mar, 2015 History of weight loss surgery Z98.84 and Hyperlipidemia, unspecified E78.5 [facility], [place] [address] 69300- 5056 Mar, Low back pain M54.5 ; Chronic prescription opiate use Z79.899 ; Hyperlipidemia, unspecified E78.5 ; Spasm of back muscles M62.830 and History of weight loss surgery Z98.84 [facility], [place] [address] 64333- 5095 Jan, [facility], [place] [address] 14519- 2553 Jan, [facility], [place] [address] 09843- 0252 Jan, [facility], [place] [id number] [place] [address] 53939- 5099 Dec, [facility], [place] [id number] [place] [address] 86229- 3483 Dec, [facility], [place] [id number] [place] [address] 83187- 6777 Dec, [facility], [place] [address] 23518- 8923 Nov, [facility], [place] [id number] [place] [address] 19554- 9535 Nov, Obstructive sleep apnea syndrome G47.33 and Pharyngoesophageal dysphagia R13.14 [facility], [place] [address] [address]- 1353 Nov, [facility], [place] [id number] [place] [address] 22289- 5437 Nov, [facility], [place] [id number] [place] [address] 29447- 4894 Nov, [facility] [address] [id number] Oct, Dental examination V72.2 [facility], [place] [id number] [place] [address] 20096- 4120 Oct, [facility], [place] [id number] [place] [address] 29648- 6223 Oct, [facility], [place] [id number] [place] [address] 49343- 8739 Oct, [facility], [place] [id number] [place] [address] 84200- 3128 Oct, [facility], [place] [id number] [place] [address] 43005- 4944 Oct, BPH (benign prostatic hyperplasia) 600.00 and Urinary frequency 788.41 [facility], [place] [id number] [place] [address] 35107- 6757 Oct, [facility], [place] [id number] [place] [address] 22561- 8684 Oct, [facility] [place] [id number] [place] [address] 04157- 9057 Oct, [facility], [place] [id number] [place] [address] 86522- 2606 Sep, Cerumen impaction 380.4 ; Cerumen debris on tympanic membrane 380.4 ; Psoriasis 696.1 and MICKY (secretory otitis media) 381.4 [facility] [id number] [place] [address] [id number] Sep, Dental examination V72.2 [facility], [place] [address] [address]- 5789 Sep, Fatigue 780.79 ; Irritable bowel syndrome 564.1 ; Overweight 278.02 ; Poor sleep V69.4 ; Shaking spells 781.0 and Broken tooth 873.63 [facility], [place] [address] [address]- 9958 Sep, [facility] [place] [id number] [place] [address] 23293- 3013 Sep, [facility], [place] [id number] [place] [address] 13912- 2194 Aug, [facility] [place] [id number] [place] [address] 12310- 8351 Jul, [facility] [place] [id number] [place] [address] 99843- 9691 Jul, [facility] [place] [id number] [place] [address] 54324- 1968 Jul, [facility] [place] [id number] [place] [address] 06891- 3480 Jul, [facility] [place] [id number] [place] [address] 48681- 6398 June, Arthritis of knee, right 716.96 [facility], [place] [address] [address]- 5096 June, [facility] [place] [id number] [place] [address] 65876- 0719 June, Elevated blood pressure reading without diagnosis of hypertension 796.2 [facility] [place] [id number] [place] [address] 60660- 3774 June, [facility] [place] [id number] [place] [address] 61653- 6267 June, [facility], [place] [id number] [place] [address], [place] [address]- 9190 June, [facility] [place] [facility] [address] [id number] [place] [address]- 9187 June, [facility] [place] [facility] [address] [id number] [place] [address]- 2771 May, [facility] [place] [facility] [address] [id number] [place] [address] May, [facility] [place] [facility] [address] [id number] [place] [address] Apr, [facility] [place] [facility] [address] [id number] [place] [address] Apr, [facility] [place] [facility] [address] [id number] [place] [address] Apr, [facility] [place] [facility] [address] [id number] [place] [address] Apr, [facility] [place] [facility] [address] [id number] [place] [address] Apr, [facility] [place] [facility] [address] [id number] [place] [address] Apr, [facility] [place] [facility] [address] [id number] [place] [address] Apr, [facility] [place] [facility] [address] [id number] [place] [address] Apr, [facility] [place] [facility] [address] [id number] [place] [address] Apr, [facility] [place] [facility] [address] [id number] [place] [address] Apr, [facility] [place] [facility] [address] [id number] [place] [address] Apr, [facility] [place] [facility] [address] [id number] [place] [address] Apr, [facility] [place] [facility] [address] [id number] [place] [address] 24 Apr, 2014 [facility] [place] [facility] [address] [id number] [place] [address] 24 Apr, 2014 [facility] [place] [facility] [address] [facility] [id number] [place] [address]- [address] Apr, 2014 [facility] [place] [facility] [address] [id number] [place] [address] Apr, 2014 [facility] [place] [facility] [address] [id number] [place] [address] Apr, 2014 [facility] [place] [facility] [address] [facility] [id number] [place] [address] 20 Apr, 2014 [facility] [place] [facility] [address] [facility] [id number] [place] [address] 18 Apr, 2014 [facility] [place] [facility] [address] [facility] [id number] [place] [address] 18 Apr, 2014 [facility] [place] [facility] [address] [facility] [id number] [place] [address] 13 Apr, 2014 [facility] [place] [facility] [address] [facility] [id number] [place] [address] 13 Apr, 2014 [facility] [place] [facility] [address] [facility] [id number] [place] [address] 8408 13 Apr, 2014 [facility] [place] [facility] [address] [facility] [id number] [place] [address] 2542 13 Apr, 2014 [facility] [place] [facility] [address] [facility] [id number] [place] [address] 2543 12 Apr, 2014 [facility] [place] [facility] [address] [facility] [id number] [place] [address]- 9763 12 Apr, 2014 [facility] [place] [facility] [address] [facility] [id number] [place] [address] 2540 06 Apr, 2014 [facility] [place] [facility] [address] [id number] [place] [address]- 1092 Apr, 2014 [facility] [place] [facility] [address] [id number] [place] [address]- 7922 Apr, 2014 [facility] [place] [facility] [address] [id number] [place] [address]- 7471 Apr, 2014 [facility] [place] [facility] [address] [id number] [place] [address]- 0323 Apr, 2014 [facility] [place] [facility] [address] [id number] [place] [address]- 8432 Apr, 2014 [facility] [place] [facility] [address] [id number] [place] [address]- 7818 Apr, 2014 [facility] [place] [facility] [address] [facility] [id number] [place] [address] 9166 Mar, [facility] [place] [facility] [address] [id number] [place] [address]- 8633 Mar, [facility] [place] [facility] [address] [id number] [place] [address]- 2991 Mar, [facility] [place] [facility] [address] [facility] [id number] [place] [address]- 7655 Mar, [facility] [place] [facility] [address] [facility] [id number] [place] [address]- 4819 Mar, [facility] [place] [facility] [address] [id number] [address] 8074 Mar, [facility] [place] [facility] [address] [id number] [place] [address]- 0053 Mar, [facility] [place] [facility] [address] [id number] [place] [address]- 8141 Mar, [facility] [place] [facility] [address] [id number] [place] [address]- 8338 Mar, [facility] [place] [facility] [address] [id number] [place] [address]- 9909 Mar, [facility] [place] [facility] [address] [id number] [place] [address]- 2228 Jan, [facility] [place] [facility] [address] [id number] [place] [address] Jan, [facility] [place] [facility] [address] [id number] [place] [address]- 3678 Jan, [facility] [place] [facility] [address] [id number] [place] [address]- 5103 Jan, [facility] [place] [facility] [address] [id number] [place] [address]- 4412 Jan, [facility] [place] [facility] [address] [id number] [place] [address]- 1417 Jan, [facility] [place] [facility] [address] [id number] [place] [address]- 2303 Jan, [facility] [place] [facility] [address] [id number] [place] [address]- 0612 Jan, [facility] [place] [facility] [address] [id number] [place] [address]- 9101 Jan, [facility] [place] [facility] [address] [id number] [place] [address]- 2907 Jan, [facility] [place] [facility] [address] [id number] [place] [address]- 5485 Jan, [facility] [place] [facility] [address] [id number] [place] [address]- 5819 Jan, [facility] [place] [facility] [address] [id number] [place] [address]- 4647 Dec, [facility] [place] [facility] [address] [id number] [place] [address]- 2386 Dec, [facility] [place] [facility] [address] [id number] [place] [address]- 0139 Dec, [facility] [place] [facility] [address] [id number] [place] [address]- 4792 Dec, [facility] [place] [facility] [address] [id number] [place] [address]- 5209 Dec, [facility] [place] [facility] [address] [id number] [place] [address]- 5372 Dec, [facility] [place] [facility] [address] [id number] [place] [address]- 9813 Dec, [facility] [place] [facility] [address] [id number] [place] [address]- 4249 Dec, [facility] [place] [facility] [address] [id number] [place] [address]- 7430 Dec, [facility] [place] [facility] [address] [id number] [place] [address]- 1132 Dec, [facility] [place] [facility] [address] [id number] [place] [address]- 3831 Nov, [facility] [place] [facility] [address] [id number] [place] [address]- 9769 Nov, [facility] [place] [facility] [address] [id number] [place] [address]- 2654 Nov, [facility] [place] [facility] [address] [id number] [place] [address]- 5328 Nov, [facility] [place] [facility] [address] [id number] [place] [address]- 9896 Nov, [facility] [place] [facility] [address] [id number] [place] [address]- 1269 Nov, [facility] [place] [facility] [address] [id number] [place] [address]- 6406 Nov, [facility] [place] [facility] [address] [id number] [place] [address]- 1977 Nov, [facility] [place] [facility] [address] [id number] [place] [address]- 8621 Nov, [facility] [place] [facility] [address] [id number] [place] [address]- 2197 24 Nov, 2013 [facility] [place] [facility] [address] [id number] [place] [address]- 7730 Nov, [facility] [place] [facility] [address] [id number] [place] [address]- 0011 17 Nov, 2013 [facility] [place] [facility] [address] [id number] [place] [address]- 9865 Nov, [facility] [place] [facility] [address] [id number] [place] [address]- 4796 14 Nov, 2013 [facility] [place] [facility] [address] [id number] [place] [address]- 2614 Nov, [facility] [place] [facility] [address] [id number] [place] [address]- 0605 Nov, [facility] [place] [facility] [address] [id number] [place] [address]- 9063 Nov, [facility] [place] [facility] [address] [id number] [place] [address]- 6054 Nov, [facility] [place] [facility] [address] [id number] [place] [address]- 9611 Nov, [facility] [place] [facility] [address] [id number] [place] [address]- 5962 Nov, [facility] [place] [facility] [address] [id number], [place] [address] 4282 Oct, [facility] [place] [facility] [address] [id number] [place] [address]- 2765 Oct, [facility] [place] [facility] [address] [id number] [place] [address]- 9624 19 Oct, 2013 [facility] [place] [facility] [address] [id number] [place] 19 Oct, 2013 [facility] [place] [facility] [address] [id number] [place] [address]- 0931 Oct, [facility] [place] [facility] [address] [id number] [place] [address]- 8044 12 Oct, 2013 [facility] [place] [facility] [address] [id number] [place] [address]- 0299 Oct, [facility] [place] [facility] [address] [id number] [place] [address]- 2902 Oct, [facility] [place] [facility] [address] [id number] [place] [address]- 7818 Oct, [facility] [place] [facility] [address] [id number] [place] [address]- 8864 Oct, [facility] [place] [facility] [address] [id number] [place] [address]- 5725 Sep, [facility] [place] [facility] [address] [id number] [place] [address]- 0681 Sep, [facility] [place] [facility] [address] [id number] [place] [address]- 6559 Sep, [facility] [place] [facility] [address] [id number] [place] [address]- 9638 Sep, [facility] [place] [facility] [address] [id number] [place] [address]- 5672 Sep, [facility] [place] [facility] [address] [id number] [place] [address]- 0203 Sep, [facility] [place] [facility] [address] [id number] [place] [address]- 4865 Sep, [facility] [place] [facility] [address] [id number] [place] [address]- 4283 Sep, [facility] [place] [facility] [address] [id number] [place] [address]- 7834 Sep, [facility] [place] [facility] [address] [id number] [place] [address]- 5904 Sep, [facility] [place] [facility] [address] [id number] [place] [address]- 7263 Sep, [facility] [place] [facility] [address] [id number] [place] [address]- 5290 Sep, [facility] [place] [facility] [address] [id number] [place] [address]- 2761 Sep, [facility] [place] [facility] [address] [id number] [place] [address]- 3619 Sep, [facility] [place] [facility] [address] [id number] [place] [address]- 9682 Sep, [facility] [place] [facility] [address] [id number] [place] [address]- 6132 Sep, [facility] [place] [facility] [address] [id number] [place] [address]- 8588 Sep, [facility] [place] [facility] [address] [id number] [place] [address]- 0996 Sep, [facility] [place] [facility] [address] [id number] [place] [address]- 2877 Sep, [facility] [place] [facility] [address] [id number] [place] [address]- 3571 Sep, [facility] [place] [facility] [address] [id number] [place] [address]- 4386 Sep, [facility] [place] [facility] [address] [id number] [place] [address]- 4282 Sep, [facility] [place] [facility] [address] [id number] [place] [address]- 5896 Sep, [facility] [place] [facility] [address] [id number] [place] [address]- 7133 Sep, [facility] [place] [facility] [address] [id number] [place] [address]- 1186 Sep, [facility] [place] [facility] [address] [id number] [place] [address]- 8601 Aug, [facility] [place] [facility] [address] [id number] [place] [address]- 9869 Aug, [facility] [place] [facility] [address] [id number] [place] [address]- 9538 Aug, [facility] [place] [facility] [address] [id number] [place] [address]- 0729 Aug, [facility] [place] [facility] [address] [id number] [place] [address]- 1290 Aug, [facility] [place] [facility] [address] [id number] [place] [address]- 8642 Aug, [facility] [place] [facility] [address] [id number] [place] [address]- 2671 Aug, [facility] [place] [facility] [address] [id number] [place] [address]- 4498 Aug, [facility] [place] [facility] [address] [id number] [place] [address]- 2826 Aug, [facility] [place] [facility] [address] [id number] [place] [address]- 1976 Aug, [facility] [place] [facility] [address] [id number] [place] [address]- 3707 Aug, [facility] [place] [facility] [address] [id number] [place] [address]- 5383 Aug, [facility] [place] [facility] [address] [id number] [place] [address]- 0371 Aug, [facility] [place] [facility] [address] [id number] [place] [address]- 2877 Jul, [facility] [place] [facility] [address] [id number] [place] [address]- 9057 Jul, [facility] [place] [facility] [address] [id number] [place] [address]- 2212 Jul, [facility] [place] [facility] [address] [id number] [place] [address]- 2372 Jul, [facility] [place] [facility] [address] [id number] [place] [address]- 5424 Jul, [facility] [place] [facility] [address] [id number] [place] [address]- 6520 Jul, [facility] [place] [facility] [address] [id number] [place] [address]- 7076 Jul, [facility] [place] [facility] [address] [id number] [place] [address]- 5890 June, [facility] [place] [facility] [address] [id number] [place] [address]- 5929 June, [facility] [place] [facility] [address] [id number] [place] [address]- 4090 June, [facility] [place] [facility] [address] [id number] [place] [address]- 9002 June, [facility] [place] [facility] [address] [id number] [place] [address]- 5074 May, [facility] [place] [facility] [address] [id number] [place] [address]- 7812 May, [facility] [place] [facility] [address] [id number] [place] [address]- 1660 May, [facility] [place] [facility] [address] [id number] [place] [address]- 5325 May, [facility] [place] [facility] [address] [id number] [place] [address]- 7890 May, [facility] [place] [facility] [address] [id number] [place] [address]- 3267 May, [facility] [place] [facility] [address] [id number] [place] [address]- 2230 May, [facility] [place] [facility] [address] [id number] [place] [address]- 0856 May, [facility] [place] [facility] [address] [id number] [place] [address]- 5282 May, [facility] [place] [facility] [address] [id number] [place] [address]- 6474 May, [facility] [place] [facility] [address] [id number] [place] [address]- 8089 Apr, [facility] [place] [facility] [address] [id number] [place] [address]- 9637 Apr, [facility] [place] [facility] [address] [id number] [place] [address]- 8854 Apr, [facility] [place] [facility] [address] [id number] [place] [address]- 6507 Apr, [facility] [place] [facility] [address] [id number] [place] [address]- 4578 Apr, [facility] [place] [facility] [address] [id number] [place] [address]- 0524 Apr, [facility] [place] [facility] [address] [id number] [place] [address]- 4884 Apr, [facility] [place] [facility] [address] [id number] [place] [address]- 2239 Apr, [facility] [place] [facility] [address] [id number] [place] [address]- 5553 Apr, [facility] [place] [facility] [address] [id number] [place] [address]- 2874 Apr, [facility] [place] [facility] [address] [id number] [place] [address]- 2141 Mar, [facility] [place] [facility] [address] [id number] [place] [address]- 4152 Mar, [facility] [place] [facility] [address] [id number] [place] [address]- 3209 Mar, [facility] [place] [facility] [address] [id number] [place] [address]- 3317 Mar, [facility] [address] [id number] [place] [address]- 8949 Mar, [facility] [place] [facility] [address] [id number] [place] [address]- 5153 Mar, [facility] [address] [id number] [place] [address]- 4675 Jan, [facility] [place] [facility] [address] [id number] [place] [address]- 5271 Jan, [facility] [address] [id number] [place] [address]- 7371 Jan, [facility] [place] [facility] [address] [id number] [place] [address]- 7850 Jan, [facility] [address] [id number] [place] [address]- 3900 Jan, [facility] [place] [facility] [address] [id number] [place] [address]- 9482 Jan, [facility] [place] [facility] [address] [id number] [place] [address]- 8890 Jan, [facility] [address] [facility] [id number] [place] [address]- 5513 Jan, [facility] [place] [facility] [address] [id number] [place] [address]- 9676 Jan, [facility] [place] [facility] [address] [id number] [place] [address]- 1042 Dec, [facility] [place] [facility] [address] [id number] [place] [address]- 3011 Dec, [facility] [place] [facility] [address] [id number] [place] [address]- 3020 Dec, [facility] [place] [facility] [address] [id number] [place] [address]- 4194 Dec, [facility] [place] [facility] [address] [id number] [place] [address]- 9331 Dec, [facility] [place] [facility] [address] [id number] [place] [address]- 3454 Dec, [facility] [place] [facility] [address] [id number] [place] [address]- 0508 Dec, [facility] [place] [facility] [address] [id number] [place] [address]- 7134 Dec, [facility] [place] [facility] [address] [id number] [place] [address]- 4643 Dec, [facility] [place] [facility] [address] [id number] [place] [address]- 2889 Dec, [facility] [place] [facility] [address] [id number] [place] [address]- 0846 Dec, [facility] [place] [facility] [address] [id number] [place] [address]- 8800 Nov, [facility] [place] [facility] [address] [id number] [place] [address]- 7300 Nov, [facility] [place] [facility] [address] [id number] [place] [address]- 5942 Nov, [facility] [place] [facility] [address] [id number] [place] [address]- 9416 Nov, [facility] [place] [facility] [address] [id number], [place] [address]- 3092 Nov, [facility] [place] [facility] [address] [id number] [place] [address]- 8011 Oct, [facility] [place] [facility] [address] [id number] [place] [address]- 4064 Oct, [facility] [place] [facility] [address] [id number] [place] [address]- 7937 Sep, [facility] [place] [facility] [address] [id number] [place] [address]- 2546 Aug, [facility] [address] [id number] [place] [address]- 3548 Aug, [facility] [place] [facility] [address] [id number] [place] [address]- 2497 Aug, [facility] [place] [facility] [address] [id number] [place] [address]- 4384 Aug, [facility] [place] [facility] [address] [id number] [place] [address]- 8234 Jul, [facility] [place] [facility] [address] [id number] [place] [address]- 6524 Jul, [facility] [place] [facility] [address] [id number] [place] [address]- 3442 June, [facility] [place] [facility] [address] [id number] [place] [address]- 8809 June, [facility] [place] [facility] [address] [id number] [place] [address]- 9953 June, [facility] [place] [facility] [address] [id number] [place] [address]- 3535 May, [facility] [place] [facility] [address] [id number] [place] [address]- 6796 May, [facility] [place] [facility] [address] [id number] [place] [address]- 0235 May, [facility] [place] [facility] [address] [id number] [place] [address]- 7404 Apr, [facility] [place] [facility] [address] [id number] [place] [address]- 7714 18 Apr, 2012 [facility] [place] [facility] [address] [id number] [place] [address]- 5489 15 Apr, 2012 [facility] [place] [facility] [address] [id number] [place] [address]- 6739 14 Apr, 2012 [facility] [place] [facility] [address] [id number] [place] [address]- 1363 Apr, [facility] [address] [id number] [place] [address]- 8396 Apr, [facility] [place] [facility] [address] [id number] [place] [address]- 1636 Apr, [facility] [address] [id number] [place] [address]- 3306 Apr, [facility] [place] [facility] [address] [id number] [place] [address]- 1004 Apr, [facility] [address] [id number] [place] [address]- 4179 Apr, [facility] [address] [id number] [place] [address]- 0368 Apr, [facility] [address] [id number] [place] [address]- 6034 Apr, [facility] [address] [id number] [place] [address]- 1359 Apr, [facility] [address] [facility] [id number] [place] [address]- 8130 Mar, [facility] [address] [id number] [place] [address]- 5140 Mar, [facility] [address] [id number] [place] [address]- 7630 Mar, [facility] [place] [facility] [address] [id number] [place] [address] Mar, [facility] [place] [facility] [address] [id number] [place] [address] Mar, [facility] [place] [facility] [address] [id number] [place] [address] Jan, [facility] [place] [facility] [address] [id number] [place] [address] 28 Jan, 2012 [facility] [place] [facility] [address] [id number] [place] [address] Jan, [facility] [place] [facility] [address] [id number] [place] [address] 22 Jan, 2012 [facility] [place] [facility] [address] [id number] [place] [address]666 14 Jan, 2012 [facility] [place] [facility] [address] [id number] [place] [address] 13 Jan, 2012 [facility] [place] [facility] [address] [id number] [place] [address]- 7986 13 Jan, 2012 [facility] [place] [facility] [address] [id number] [place] [address] 11 Jan, 2012 [facility] [place] [facility] [address] [id number] [place] [address]- [address] Jan, [facility] [place] [facility] [address] [id number] [place] [address] Jan, [facility] [place] [facility] [address] [id number] [place] [address]- 160[address] Jan, [facility] [place] [facility] [address] [id number] [place] [address]- [address] Jan, [facility] [place] [facility] [address] [id number] [place] [address]- 110[address] Jan, [facility] [place] [facility] [address] [id number] [place] [address]- 79[address] Jan, [facility] [place] [facility] [address] [id number] [place] [address] 18[address] Dec, [facility] [place] [facility] [address] [id number] [place] [address]- [address] Dec, [facility] [place] [facility] [address] [id number] [place] [address] Dec, [facility] [place] [facility] [address] [id number] [place] [address]- 3769 19 Jan, 2012 [facility] [place] [facility] [address] [id number] [place] [address]- [address] 15 Jan, 2012 [facility] [place] [facility] [address] [id number] [place] [address]- [address] 15 Jan, 2012 [facility] [place] [facility] [address] [id number] [place] [address] 14 Jan, 2012 [facility] [place] [facility] [address] [id number] [place] [address]- 7734 14 Jan, 2012 [facility] [place] [facility] [address] [id number] [place] [address]- [address] 14 Jan, 2012 [facility] [place] [facility] [address] [id number] [place] [address]- [address] 14 Jan, 2012 [facility] [place] [facility] [address] [id number] [place] [address]- 7360 07 Jan, 2012 [facility] [place] [facility] [address] [id number] [place] [address]- [address]65 07 Jan, 2012 [facility] [place] [facility] [address] [id number] [place] [address]- [address]32 16 Dec, 2011 [facility] [place] [facility] [address] [id number] [place] [address]179 16 Dec, 2011 [facility] [place] [facility] [address] [id number] [place] [address]- 8237 13 Nov, 2011 [facility] [place] [facility] [address] [id number] [place] [address]- [address]479 13 Nov, 2011 [facility] [place] [facility] [address] [id number] [place] [address]- 6376 13 Nov, 2011 [facility] [place] [facility] [address] [id number] [place] [address]- [address]259 12 Nov, 2011 [facility] [place] [facility] [address] [id number] [place] [address]- [address] Sep, [facility] [address] [id number] [place] [address] Sep, [facility] [place] [facility] [address] [id number] [place] [address]- 1676 Aug, [facility] [place] [facility] [address] [id number] [place] [address]- [address] Aug, [facility] [place] [facility] [address] [id number] [place] [address]- [address] Aug, [facility] [place] [facility] [address] [id number] [place] [address]- 4698 Aug, [facility] [place] [facility] [address] [id number] [place] [address]- [address] June, [facility] [place] [facility] [address] [id number] [place] [address]- [address]796 June, [facility] [place] [facility] [address] [id number] [place] [address]- 74[address] May, [facility] [place] [facility] [address] [id number] [place] [address]- [address]686 Apr, [facility] [place] [facility] [address] [id number] [place] [address]- 99[address] Apr, [facility] [place] [facility] [address] [id number] [place] [address]- 2546 Apr, [facility] [place] [facility] [address] [id number] [place] [address]- 3426 Apr, [facility] [place] [facility] [address] [id number] [place] [address]- 2928 Apr, [facility] [place] [facility] [address] [id number] [place] [address]- 49[address] Apr, [facility] [place] [facility] [address] [id number] [place] [address]- 25[address] Mar, [facility] [place] [facility] [address] [id number] [place] [address] Mar, [facility] [place] [facility] [address] [id number] [place] [address]- [address] Mar, [facility] [place] [facility] [address] [id number] [place] [address]- 9691 Jan, [facility] [place] [facility] [address] [id number] [place] [address]- 0562 Jan, [facility] [place] [facility] [address] [id number] [place] [address]- [address]195 Jan, [facility] [place] [facility] [address] [id number] [place] [address]- 2948 Jan, [facility] [place] [facility] [address] [id number] [place] [address]- 8599 Jan, [facility] [place] [facility] [address] [id number] [place] [address]- [address] Jan, [facility] [place] [facility] [address] [id number] [place] [address]- 6285 Jan, [facility] [place] [facility] [address] [id number] [place] [address]- 9634 Dec, [facility] [place] [facility] [address] [id number] [place] [address]- 1227 Dec, [facility] [place] [facility] [address] [id number] [place] [address]- 1295 Nov, [facility] [place] [facility] [address] [id number] [place] [address]- [address] Nov, [facility] [place] [facility] [address] [id number] [place] [address]- [address] Nov, [facility] [place] [facility] [address] [id number] [place] [address]- 7862 Nov, [facility] [place] [facility] [address] [id number] [place] [address]- [address] Oct, [facility] [place] [facility] [address] [id number] [place] [address]- 4[address] Sep, [facility] [place] [facility] [address] [id number] [place] [address]- [address]757 Mar, [facility] [place] [facility] [address] [id number] [place] [address]- [address] Jan, [facility] [place] [facility] [address] [id number] [place] [address]- [address] Dec, [facility] [place] [facility] [address] [id number] [place] [address]- 3643 Dec, [facility] [place] [facility] [address] [id number] [place] [address]- [address] Dec, [facility] [place] [facility] [address] [id number] [place] [address]- [address]39 Dec, [facility] [place] [facility] [address] [address] [id number] [place] [address] Nov, [facility] [place] [facility] [address] [id number] [place] [address] 15 Nov, 2009 [facility] [place] [facility] [address] [id number] [place] [address] 14 Nov, 2009 [facility] [place] [facility] [address] [id number] [place] [address] 14 Nov, 2009 [facility] [place] [facility] [address] [id number] [place] [address] Oct, [facility] [place] [facility] [address] [id number] [place] [address] Jul, [facility] [place] [facility] [address] [id number] [place] [address] June, [facility] [place] [facility] [address] [id number] [place] [address] June, [facility] [place] [facility] [address] [id number] [place] [address] 17 Apr, 2009 [facility] [place] [id number] [address] Mar, [facility] [place] [id number] [place] [address] Jan, [facility] [place] [id number] [address] Jan, [facility] [place] [id number] [place] [address] Dec, [facility], [place] [id number], [place] [address] Dec, [facility], [place] [id number] [place] [address] Dec, [facility], [place] [id number] [place] [address] Dec, [facility], [place] [id number], [place] [address] Nov, [facility], [place] [id number] [place] [address] Jul, [facility], [place] [address] [id number], [place] [address] June, IMMUNIZATIONS No Known Immunizations SOCIAL HISTORY Never Assessed REASON FOR VISIT Medication refill request PLAN OF CARE VITAL SIGNS MEDICATIONS Unknown Medications RESULTS No Results PROCEDURES No Known procedures INSTRUCTIONS MEDICATIONS ADMINISTERED No Known Medications MEDICAL (GENERAL) HISTORY Type Description Date Medical History hypertension Medical History sleep apnea-did not tolerate CPAP Medical History oxygen dependent at [facility] Medical History colonic polyps Medical [...] History colonoscopy ([place])-normal 2005 Surgical History colonoscopy ([facility])-polyp removed 10/2009 Surgical History EGD ([facility])-gastritis 10/2009 Surgical History gastric sleeve Surgical History [...]
--- OUTSIDE RECORDS SUMMARY | 2018-02-26 19:12 | XMS REPORT ---
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 Name Role Phone GRAHAMELLIOTT HANNAHANY Unavailable PROBLEMS Type Condition ICD9-CM Code [id number] Code Onset Dates Condition Status SNOMED Code Problem Pulmonary asbestosis J61 Active 27828769 Problem Left ventricular diastolic dysfunction I51.9 Active 370429915 Problem Chronic gout, unspecified cause, unspecified site [id number].[id number] Active 61573216 Problem Renal cyst, left N28.1 Active 16481602 Problem History of weight loss surgery Z98.84 Active 912934864 Problem Nocturnal hypoxia G47.34 Active 109975795 Problem Obstructive sleep apnea syndrome G47.33 Active 37898929 Problem History of diverticulitis Z87.19 Active 876340054660434 Problem Allergic rhinitis, unspecified allergic rhinitis type J30.9 Active 27653951 Problem Erectile dysfunction due to diseases classified elsewhere N52.1 Active 666407773 Problem Acute right-sided low back pain with right-sided sciatica M54.41 Active 052970482 Problem Psoriasis L40.9 Active 3080241 Problem Essential hypertension I10 Active 42338371 Problem Nephrolithiasis N20.0 Active 63459030 Problem Chronic prescription opiate use Z79.899 Active 577154858 Problem 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 Active 51919772 Problem Benign prostatic hyperplasia, presence of lower urinary tract symptoms unspecified, unspecified morphology N40.0 Active 257224317 Problem Moderate episode of recurrent major depressive disorder F33.1 Active 125710417 Problem Age-related osteoporosis without current pathological fracture M81.0 Active 21683809 Problem Low back pain M54.5 Active 319662707 Problem Anxiety F41.9 Active 18168703 Problem Urge incontinence N39.41 Active 602731821 Problem Hyperlipidemia, unspecified E78.5 Active 24496784 Problem Esophageal stricture K22.2 Active 90300388 Problem Cervicalgia M54.2 Active 3962524135426 Problem Primary insomnia F51.01 Active 752270593 ALLERGIES No Information ENCOUNTERS Encounter Location Date Diagnosis [facility] [address] [address]- [address] Aug, [facility] [id number] [place] [address] 47394- 4834 Jul, [facility] [address] 99604- 0905 Jul, Anxiety F41.9 [facility] [address] 62333- 0436 June, Anxiety F41.9 [facility] [address] 96060- 4913 June, [facility] [address] 88253- 0886 June, Low back pain M54.5 ; Chronic prescription opiate use Z79.899 ; Candidal intertrigo B37.2 ; Urge incontinence N39.41 ; Essential hypertension I10 ; Moderate episode of recurrent major depressive disorder F33.1 ; Age-related osteoporosis without current pathological fracture M81.0 and BMI 45.0-49.9, adult Z68.42 [facility] [id number] [place] [address] 63367- 1266 June, [facility] [id number] [place] [address] 73074- 5069 May, Anxiety F41.9 [facility] [id number] [place] [address] 39307- 4142 May, [facility] [address] 27078- 8285 May, [facility] [id number] [place] [address] 12766- 1973 Apr, Anxiety F41.9 [facility] [address] 68041- 1150 Apr, [facility] [id number] [place] [address] 62564- 7201 Apr, Low back pain M54.5 [facility] [id number] [place] [address] 91866- 6172 Apr, [facility] [id number] [place] [address] 44113- 9365 Apr, [facility] [id number] [place] [address] 41670- 0983 Apr, Anxiety F41.9 [facility] [id number] [place] [address] 99691- 9208 Apr, Right groin pain R10.31 [facility] [id number] [place] [address] 53092- 3829 Mar, [facility] [id number] [place] [address] 67405- 3027 Mar, [facility] [id number] [place] [address] 27405- 1278 Mar, Anxiety F41.9 [facility] [id number] [place] [address] 87227- 4873 Mar, Low back pain M54.5 [facility] [id number] [place] [address] 79930- 4434 Mar, Right groin pain R10.31 ; Low back pain M54.5 and BMI 45.0- 49.9, adult Z68.42 [facility] [id number] [place] [address] 22117- 5750 Mar, [facility] [id number] [place] [address] 57806- 1899 Mar, [facility] [address] [address]- 5413 Mar, [facility] [id number] [place] [address] 36897 -6280 Mar, [facility] [id number] [place] [address] 86497 -5468 Mar, Cough R05 ; Pneumonia of right lower lobe due to infectious organism J18.1 and Abnormal chest x-ray R93.8 [place] [address] 48761- 6926 Mar, [facility] [address] 22121- 4393 Mar, [place] [address] 17265- 1128 Jan, Anxiety F41.9 [place] [address] 73551- 6661 Jan, [place] [address] 74563- 7524 Jan, Moderate episode of recurrent major depressive disorder F33.1 [place] [address] 32623- 6649 Jan, Subacromial bursitis of right shoulder joint M75.51 ; Shortness of breath on exertion R06.02 and BMI 45.0-49.9, adult Z68.42 [place] [id number] [place] [address] 63384- 2593 Dec, Anxiety F41.9 [place] [id number] [place] [address] 20221- 2796 Dec, [place] [address] 46881- 3477 Dec, Low back pain M54.5 [place] [id number] [place] [address] 97393- 2571 Oct, Low back pain M54.5 [place] [address] 10826- 3329 Sep, [facility] [address] [address]- 1085 Sep, Erectile dysfunction due to diseases classified elsewhere N52.1 [facility] [id number] [place] [address] 55698- 4675 Sep, Erectile dysfunction due to diseases classified elsewhere N52.1 [facility] [id number] [place] [address] 06258- 3820 Sep, [facility] [address] [place] [address] 82348- 5470 Sep, Erectile dysfunction due to diseases classified elsewhere N52.1 [facility] [id number] [place] [address] 86105- 8133 Sep, Low back pain M54.5 and Anxiety F41.9 [facility] [id number] [place] [address] 67856 -0158 Aug, Acute allergic rhinitis J30.9 [facility] [address] [place] [address] 92235- 6977 Aug, [facility] [id number] [place] [address] 46731- 9865 Aug, Anxiety F41.9 [facility] [id number] [place] [address] 86026- 9069 Jul, Low back pain M54.5 ; Chronic prescription opiate use Z79.899 and Essential hypertension I10 [facility] [address] [place] [address] 61280- 0428 Jul, Anxiety F41.9 and Low back pain M54.5 [facility] [id number] [place] [address] 18251- 1684 June, [facility] [id number] [place] [address] 23492- 9585 June, Anxiety F41.9 [facility] [address] [address]- 7134 May, Low back pain M54.5 [facility] [id number] [place] [address] 49562- 0116 May, [facility] [id number] [place] [address] 25885 2546 May, Anxiety F41.9 [facility] [id number] [place] [address] 92264- 5306 Apr, [facility] [id number] [place] [address] 92000- 7700 Apr, Low back pain M54.5 [facility] [id number] [place] [address] 76817- 7976 Apr, Moderate episode of recurrent major depressive disorder F33.1 [facility] [id number] [place] [address] 61330 2546 Apr, Anxiety F41.9 [facility] [id number] [place] [address] 58095- 0810 Apr, Low back pain M54.5 [facility] [id number] [place] [address] 15996 2546 15 Apr, 2016 Elevated alkaline phosphatase level R74.8 [facility] [id number] [place] [address] 70836 2546 10 Apr, 2016 Alkaline phosphatase elevation R74.8 [facility] [address] [place] [address] 23369 2546 06 Apr, 2016 Anxiety F41.9 [facility] [id number] [place] [address] 46237 2546 Apr, Low back pain M54.5 [facility] [address] [place] [address] 92714 2546 Apr, History of weight loss surgery Z98.84 ; Encounter for hepatitis C screening test for low risk patient Z11.59 ; History of herpes genitalis Z86.19 ; Essential hypertension I10 ; Hyperlipidemia, unspecified E78.5 ; Exposure to STD Z20.2 and Benign prostatic hyperplasia, presence of lower urinary tract symptoms unspecified, unspecified morphology N40.0 [facility] [address] [place] [address] 58309- 9453 02 Apr, 2016 [place] [address] 95861- 2730 Mar, [place] [id number] [place] [address] 02165- 7051 Mar, [place] [id number] [place] [address] 11306- 8973 Mar, [place] [id number] [place] [address] 81629- 1437 Mar, Acute right-sided low back pain with right-sided sciatica M54.41 [place] [id number] [place] [address] 35483- 5630 Mar, Low back pain M54.5 [facility] [id number] [place] [address] 34753 -5385 Mar, Muscle strain of chest wall, initial encounter S29.011A ; Muscle strain of right thigh, initial encounter S76.911A and Acute non- recurrent maxillary sinusitis J01.00 [place] [id number] [place] [address] 06305- 4130 Mar, Benign prostatic hyperplasia, presence of lower urinary tract symptoms unspecified, unspecified morphology N40.0 [place] [id number] [place] [address] 82432- 7389 Jan, Low back pain M54.5 [facility] [id number] [place] [address] 12877- 4564 Jan, Low back pain M54.5 ; Essential hypertension I10 ; Hyperlipidemia, unspecified E78.5 ; Anxiety F41.9 ; Moderate episode of recurrent major depressive disorder F33.1 ; Primary insomnia F51.01 ; Exposure to STD Z20.2 ; Encounter for hepatitis C screening test for low risk patient Z11.59 and History of herpes genitalis Z86.19 [facility] [id number] [place] [address] 05744- 7776 17 Jan, 2016 [facility] [address] 21739- 2963 20 Dec, 2015 [facility] [address] 20776- 9552 14 Dec, 2015 Anxiety F41.9 ; Cervicalgia M54.2 ; Moderate episode of recurrent major depressive disorder F33.1 and Encounter for immunization Z23 [facility] [id number] [place] [address] 28395- 0064 Oct, [facility] [address] 13421- 9162 Oct, [facility] [id number] [place] [address] 76151- 4340 16 Nov, 2015 [facility] [address] 88571- 0426 09 Nov, 2015 [facility] [id number] [place] [address] 81310- 3805 Sep, [facility] [id number] [place] [address] 38664- 6874 Aug, Low back pain M54.5 ; Anxiety F41.9 ; Primary insomnia F51.01 and Chronic prescription opiate use Z79.899 [facility] [id number] [place] [address] 04168- 9732 Jul, [facility] [id number] [place] [address] 11955- 2121 Jul, [facility] [id number] [place] [address] 27269- 7005 Jul, [facility] [address] [facility] [id number] [address]- 1402 Jul, [facility] [id number] [place] [address] 77482- 1961 Jul, [facility] [address] [address]- 7831 June, [facility] [id number] [place] [address] 37363- 0143 June, [facility] [address] [facility] [id number] [place] [address] 42328- 0261 June, [facility] [id number] [place] [address], [place] [address]- 9401 June, [facility] [id number] [place] [address] 01524- 5812 May, Preoperative cardiovascular examination Z01.810 [facility] [address] [address]- 5367 May, [facility] [id number] [place] [address] 42205- 3002 Apr, [facility] [address] [place] [address] 01424- 4651 Apr, Osteoarthritis of right knee M17.9 [facility] [address] [address]- 0998 30 May, 2015 [facility] [address] [address]- 8917 16 May, 2015 [facility] [address] [address]- 7753 Apr, [facility] [id number] [address]- 9952 Apr, [facility] [address] [address]- 2618 08 Apr, 2016 History of excessive cerumen Z78.9 ; Obstructive sleep apnea syndrome G47.33 ; History of diverticulitis Z87.19 and Nephrolithiasis N20.0 [place] [id number] [place] [address] 18140- 2078 29 Apr, 2015 [facility] [id number] [place] [address] 00942 -4308 23 Apr, 2015 Abdominal pain R10.9 [place] [address] 52816- 8299 10 Apr, 2015 [place] [address] 94655- 8561 04 Apr, 2015 Osteoarthritis of right knee M17.9 [place] [id number] [place] [address] 39506- 1690 Mar, [place] [address] 04192- 7404 15 Mar, 2015 [place] [id number] [place] [address] 91449- 2181 Mar, [place] [id number] [place] [address] 71133- 2425 Mar, [facility] [id number] [place] [address] 26643 -5365 Mar, Pyelonephritis N12 ; Left-sided thoracic back pain M54.6 ; Hematuria, unspecified R31.9 and Kidney stone N20.0 [place] [id number] [place] [address] 43986- 3341 12 Mar, 2015 History of weight loss surgery Z98.84 [place] [address] 91679- 7472 07 Mar, 2015 History of weight loss surgery Z98.84 and Hyperlipidemia, unspecified E78.5 [place] [id number] [place] [address] 78262- 1070 Mar, Low back pain M54.5 ; Chronic prescription opiate use Z79.899 ; Hyperlipidemia, unspecified E78.5 ; Spasm of back muscles M62.830 and History of weight loss surgery Z98.84 [facility] [id number] [place] [address] 92135- 2102 Jan, [facility] [id number] [place] [address] 20534- 4787 Jan, [facility] [id number] [place] [address] 75890- 8952 Jan, [facility] [id number] [place] [address] 31349- 7520 Dec, [facility] [id number] [place] [address] 49616- 3496 Dec, [facility] [id number] [place] [address] 67116- 8439 Dec, [facility] [id number] [place] [address] 74040- 6687 Nov, [facility] [id number] [place] [address] 45772- 9574 Nov, Obstructive sleep apnea syndrome G47.33 and Pharyngoesophageal dysphagia R13.14 [facility] [id number] [place] [address] 33987- 9792 Nov, [facility] [id number] [place] [address] 61342- 3603 Nov, [facility] [id number] [place] [address] 57822- 4887 Nov, [facility] [id number] [place] [address] [id number] Oct, Dental examination V72.2 [facility] [id number] [place] [address] 74401- 0043 Oct, [facility] [id number] [place] [address] 77266- 2530 Oct, [facility] [address] [address]- 6866 Oct, [facility] [id number] [place] [address] 80823- 6067 Oct, [facility] [id number] [place] [address] 62960- 3185 Oct, BPH (benign prostatic hyperplasia) 600.00 and Urinary frequency 788.41 [facility] [id number] [place] [address] 41667- 4697 Oct, [facility] [id number] [place] [address] 24744- 9714 Oct, [facility] [id number] [place] [address] 12787- 8381 Oct, [facility] [id number] [place] [address] 66325- 4880 Sep, Cerumen impaction 380.4 ; Cerumen debris on tympanic membrane 380.4 ; Psoriasis 696.1 and MICKY (secretory otitis media) 381.4 [facility] [address] [place] [address] [id number] Sep, Dental examination V72.2 [facility] [address] [place] [address] 96484- 0072 Sep, Fatigue 780.79 ; Irritable bowel syndrome 564.1 ; Overweight 278.02 ; Poor sleep V69.4 ; Shaking spells 781.0 and Broken tooth 873.63 [facility] [id number] [place] [address] 64383- 1387 Sep, [facility] [id number] [place] [address] 74469- 0016 Sep, [facility] [id number] [place] [address] 00349- 3573 Aug, [facility] [address] [facility] [id number] [place] [address]- 0655 Jul, [facility] [address] [facility] [id number] [place] [address]- 0765 Jul, [facility] [address] [facility] [id number] [place] [address]- 4902 Jul, [facility] [id number] [address]- 7986 Jul, [facility] [address] [facility] [id number] [place] [address]- 6522 June, Arthritis of knee, right 716.96 [facility] [address] [facility] [id number] [place] [address]- 9091 June, [facility] [address] [place] [address]- 6968 June, Elevated blood pressure reading without diagnosis of hypertension 796.2 [facility] [address] [place] [address]- 6022 June, [facility] [address] [id number] [place] [address] June, [facility] [address] [id number] [place] [address] June, [facility] [address] [id number] [place] [address] June, [facility] [address] [facility] [id number] [place] [address] May, [facility] [address] [id number] [place] [address] May, [facility] [address] [facility] [id number] [place] [address] Apr, [facility] [address] [id number] [place] [address] Apr, [facility] [place] [facility] [address] [id number] [place] [address] Apr, [facility] [place] [facility] [address] [id number] [place] [address] Apr, [facility] [place] [facility] [address] [id number] [place] [address] Apr, [facility] [place] [facility] [address] [id number] [place] [address] Apr, [facility] [place] [facility] [address] [id number] [place] [address] Apr, [facility] [place] [facility] [address] [id number] [place] [address] Apr, [facility] [place] [facility] [address] [facility] [id number] [place] [address] Apr, [facility] [place] [facility] [address] [id number] [place] [address] Apr, [facility] [place] [facility] [address] [id number] [place] [address] Apr, [facility] [place] [facility] [address] [facility] [id number] [place] [address] Apr, [facility] [place] [facility] [address] [facility] [id number] [place] [address] Apr, 2014 [facility] [place] [facility] [address] [id number] [address] Apr, 2014 [facility] [place] [facility] [address] [id number] [place] [address] Apr, [facility] [place] [facility] [address] [id number] [place] [address] Apr, 2014 [facility] [place] [facility] [address] [facility] [id number] [place] [address] Apr, 2014 [facility] [place] [facility] [address] [facility] [id number] [address] 20 Apr, 2014 [facility] [place] [facility] [address] [id number] [place] [address] 18 Apr, 2014 [facility] [place] [facility] [address] [facility] [id number] [place] [address] 18 Apr, 2014 [facility] [place] [facility] [address] [facility] [id number] [place] [address] 13 Apr, 2014 [facility] [place] [facility] [address] [facility] [id number] [place] [address] Apr, 2014 [facility] [place] [facility] [address] [facility] [id number] [place] [address] Apr, 2014 [facility] [place] [facility] [address] [id number] [place] [address] Apr, 2014 [facility] [place] [facility] [address] [place] [id number] [address] 12 Apr, 2014 [facility] [place] [facility] [address] [facility] [id number] [place] [address] 3603 Apr, 2014 [facility] [place] [facility] [address] [id number] [place] [address] 0[address] Apr, 2014 [facility] [place] [facility] [address] [id number] [address]- 7991 Apr, 2014 [facility] [place] [facility] [address] [facility] [id number] [place] [address]- 1848 Apr, 2014 [facility] [place] [facility] [address] [facility] [id number] [place] [address]- 8286 Apr, 2014 [facility] [place] [facility] [address] [facility] [id number] [place] [address]- 7141 Apr, 2014 [facility] [place] [facility] [address] [facility] [id number] [address] Apr, 2014 [facility] [place] [facility] [id number] [address] Apr, [facility] [address] [id number] [place] [address]- 6529 Mar, [facility] [place] [facility] [address] [id number] [place] [address]- 4793 Mar, [facility] [place] [facility] [address] [id number] [place] [address]- 8070 Mar, [facility] [place] [facility] [address] [id number] [place] [address]- 3142 Mar, [facility] [place] [facility] [address] [id number] [place] [address]- 6145 Mar, [facility] [place] [facility] [address] [id number] [place] [address]- 5615 Mar, [facility] [place] [facility] [address] [id number] [place] [address]- 6765 Mar, [facility] [place] [facility] [address] [id number] [place] [address]- 8534 Mar, [facility] [place] [facility] [address] [id number] [place] [address]- 5416 Mar, [facility] [place] [facility] [address] [id number] [place] [address]- 9700 Mar, [facility] [place] [facility] [address] [id number] [place] [address]- 3838 Jan, [facility] [place] [facility] [address] [id number] [place] [address]- 0070 Jan, [facility] [place] [facility] [address] [id number] [place] [address]- 4961 Jan, [facility] [place] [facility] [address] [id number] [place] [address]- 7332 Jan, [facility] [place] [facility] [address] [id number] [place] [address]- 5452 Jan, [facility] [place] [facility] [address] [id number] [place] [address]- 9230 Jan, [facility] [place] [facility] [address] [id number] [place] [address]- 7681 Jan, [facility] [place] [facility] [address] [id number] [place] [address]- 3931 Jan, [facility] [place] [facility] [address] [id number] [place] [address]- 1575 Jan, [facility] [place] [facility] [address] [id number] [place] [address]- 2899 Jan, [facility] [place] [facility] [address] [id number] [place] [address]- 5672 Jan, [facility] [place] [facility] [address] [id number] [place] [address]- 0516 Jan, [facility] [place] [facility] [address] [id number] [place] [address]- 6073 Dec, [facility] [place] [facility] [address] [id number] [place] [address]- 9535 Dec, [facility] [place] [facility] [address] [id number] [place] [address]- 5558 Dec, [facility] [place] [facility] [address] [id number] [place] [address]- 1107 Dec, [facility] [place] [facility] [address] [id number] [place] [address]- 0896 Dec, [facility] [place] [facility] [address] [id number] [place] [address]- 0975 Dec, [facility] [place] [facility] [address] [id number] [place] [address]- 8633 Dec, [facility] [place] [facility] [address] [id number] [place] [address]- 1690 Dec, [facility] [place] [facility] [address] [id number] [place] [address]- 5233 Dec, [facility] [place] [facility] [address] [id number] [place] [address]- 4831 Dec, [facility] [place] [facility] [address] [id number] [place] [address]- 3427 Nov, [facility] [place] [facility] [address] [id number] [place] [address]- 5226 Nov, [facility] [place] [facility] [address] [id number] [place] [address]- 7019 Nov, [facility] [place] [facility] [address] [id number] [place] [address]- 9174 Nov, [facility] [place] [facility] [address] [id number] [place] [address]- 3183 Nov, [facility] [place] [facility] [address] [id number] [place] [address]- 0780 Nov, [facility] [place] [facility] [address] [id number] [place] [address]- 8867 Nov, [facility] [place] [facility] [address] [id number] [place] [address]- 5546 Nov, [facility] [place] [facility] [address] [id number] [address]- 8802 Nov, [facility] [place] [facility] [address] [id number] [address]- 8684 24 Nov, 2013 [facility] [place] [facility] [address] [id number] [address]- 5735 Nov, [facility] [place] [facility] [address] [id number] [place] [address]- 8453 17 Nov, 2013 [facility] [place] [facility] [address] [id number] [address]- 6408 Nov, [facility] [place] [facility] [address] [id number] [place] [address]- 3640 14 Nov, 2013 [facility] [place] [facility] [address] [id number] [address]- 1358 Nov, [facility] [place] [facility] [address] [id number] [place] [address]- 0544 10 Nov, 2013 [facility] [place] [facility] [address] [id number] [place] [address]- 3536 Nov, [facility] [place] [facility] [address] [id number] [place] [address]- 3897 Nov, [facility] [place] [facility] [address] [id number] [place] [address]- 6878 Nov, [facility] [place] [facility] [address] [id number] [place] [address]- 2992 Nov, [facility] [place] [facility] [address] [id number] [place] [address]- 9854 Oct, 2013 [facility] [place] [facility] [address] [id number] [place] [address]- 3480 26 Oct, 2013 [facility] [place] [facility] [address] [id number] [place] [address]- 3867 19 Oct, 2013 [facility] [place] [facility] [address] [id number] [place] [address]- 1261 19 Oct, 2013 [facility] [place] [facility] [address] [facility] [id number] [place] [address]- 7450 12 Oct, 2013 [facility] [place] [facility] [address] [id number] [address]- 4175 12 Oct, 2013 [facility] [place] [facility] [address] [id number] [place] [address]- 2547 10 Oct, 2013 [facility] [place] [facility] [address] [id number] [place] [address]- 1891 10 Oct, 2013 [facility] [place] [facility] [address] [facility] [id number] [place] [address]- 0445 08 Oct, 2013 [facility] [place] [facility] [address] [facility] [id number] [place] [address]- 3833 08 Oct, 2013 [facility] [place] [facility] [address] [id number] [place] [address]- 4146 Sep, [facility] [place] [facility] [address] [id number] [place] [address]- 4009 Sep, [facility] [place] [facility] [address] [id number] [place] [address]- 7641 Sep, [facility] [place] [facility] [address] [id number] [place] [address]- 6567 Sep, [facility] [place] [facility] [address] [id number] [place] [address]- 0921 Sep, [facility] [place] [facility] [address] [id number] [place] [address]- 4880 Sep, [facility] [place] [facility] [address] [id number] [place] [address]- 6325 Sep, [facility] [place] [facility] [address] [id number] [place] [address]- 0610 Sep, [facility] [place] [facility] [address] [id number] [place] [address]- 1627 Sep, [facility] [place] [facility] [address] [id number] [place] [address]- 0321 Sep, [facility] [place] [facility] [address] [id number] [place] [address]- 3956 Sep, [facility] [place] [facility] [address] [id number] [place] [address]- 3330 Sep, [facility] [place] [facility] [address] [id number] [place] [address]- 2853 Sep, [facility] [place] [facility] [address] [id number] [place] [address]- 4071 Sep, [facility] [place] [facility] [address] [id number] [place] [address]- 2835 Sep, [facility] [place] [facility] [address] [id number] [place] [address]- 1350 Sep, [facility] [place] [facility] [address] [id number] [place] [address]- 2796 Sep, [facility] [place] [facility] [address] [id number] [place] [address]- 3071 Sep, [facility] [place] [facility] [address] [id number] [place] [address]- 7688 Sep, [facility] [place] [facility] [address] [id number] [place] [address]- 9921 Sep, [facility] [place] [facility] [address] [id number] [place] [address]- 7803 Sep, [facility] [place] [facility] [address] [id number] [place] [address]- 1749 Sep, [facility] [place] [facility] [address] [id number] [place] [address]- 6454 Sep, [facility] [place] [facility] [address] [id number] [place] [address]- 4800 Sep, [facility] [place] [facility] [address] [id number] [place] [address]- 6004 Sep, [facility] [place] [facility] [address] [id number] [place] [address]- 9987 Aug, [facility] [place] [facility] [address] [id number] [place] [address]- 0711 Aug, [facility] [place] [facility] [address] [id number] [place] [address]- 9524 Aug, [facility] [place] [facility] [address] [id number] [place] [address]- 9569 Aug, [facility] [place] [facility] [address] [id number] [place] [address]- 5673 Aug, [facility] [place] [facility] [address] [id number] [place] [address]- 5989 Aug, [facility] [place] [facility] [address] [id number] [place] [address]- 4249 Aug, [facility] [place] [facility] [address] [id number] [place] [address]- 8778 Aug, [facility] [place] [facility] [address] [id number] [place] [address]- 2709 Aug, [facility] [place] [facility] [address] [id number] [place] [address]- 3680 Aug, [facility] [place] [facility] [address] [id number] [place] [address]- 3697 Aug, [facility] [place] [facility] [address] [id number] [place] [address]- 0050 Aug, [facility] [place] [facility] [address] [id number] [place] [address]- 0237 Aug, [facility] [place] [facility] [address] [id number] [place] [address]- 7874 Jul, [facility] [place] [facility] [address] [id number] [place] [address]- 1875 Jul, [facility] [place] [facility] [address] [id number] [place] [address]- 4021 Jul, [facility] [place] [facility] [address] [id number] [place] [address]- 0315 Jul, [facility] [place] [facility] [address] [id number] [place] [address]- 2084 Jul, [facility] [place] [facility] [address] [id number] [place] [address]- 9286 Jul, [facility] [place] [facility] [address] [id number] [place] [address]- 0717 Jul, [facility] [place] [facility] [address] [id number] [place] [address]- 5885 June, [facility] [place] [facility] [address] [id number] [place] [address]- 8191 June, [facility] [place] [facility] [address] [id number] [place] [address]- 8714 June, [facility] [place] [facility] [address] [id number] [place] [address]- 9189 June, [facility] [place] [facility] [address] [id number] [place] [address]- 3190 May, [facility] [place] [facility] [address] [id number] [place] [address]- 6328 May, [facility] [place] [facility] [address] [id number] [place] [address]- 8793 May, [facility] [place] [facility] [address] [id number] [place] [address]- 9972 May, [facility] [place] [facility] [address] [id number] [place] [address]- 0925 May, [facility] [place] [facility] [address] [id number] [place] [address]- 1036 May, [facility] [place] [facility] [address] [id number] [place] [address]- 0236 May, [facility] [place] [facility] [address] [id number] [place] [address]- 5876 May, [facility] [place] [facility] [address] [id number] [place] [address]- 8056 May, [facility] [place] [facility] [address] [id number] [place] [address]- 6482 May, [facility] [place] [facility] [address] [id number] [place] [address]- 4339 Apr, [facility] [place] [facility] [address] [id number] [place] [address]- 3493 Apr, [facility] [place] [facility] [address] [id number] [place] [address]- 8567 Apr, [facility] [place] [facility] [address] [id number] [place] [address]- 2546 Apr, [facility] [place] [facility] [address] [id number] [place] [address]- 3666 Apr, [facility] [place] [facility] [address] [id number] [place] [address]- 4066 Apr, [facility] [place] [facility] [address] [id number] [place] [address]- 9046 Apr, [facility] [place] [facility] [address] [id number] [place] [address]- 2183 Apr, [facility] [place] [facility] [address] [id number] [place] [address]- 3837 Apr, [facility] [place] [facility] [address] [id number] [place] [address]- 9495 Apr, [facility] [place] [facility] [address] [id number] [place] [address]- 5740 Mar, [facility] [place] [facility] [address] [id number] [place] [address]- 4560 Mar, [facility] [place] [facility] [address] [id number] [place] [address]- 6227 Mar, [facility] [place] [facility] [address] [facility] [id number] [place] [address]- 5524 Mar, [facility] [place] [facility] [address] [id number] [place] [address]- 1936 Mar, [facility] [place] [facility] [address] [id number] [place] [address]- 9939 Mar, [facility] [place] [facility] [address] [id number] [place] [address]- 4936 Jan, [facility] [place] [facility] [address] [id number] [place] [address]- 4546 Jan, [facility] [place] [facility] [address] [id number] [place] [address]- 8613 Jan, [facility] [place] [facility] [address] [id number] [place] [address]- 7327 Jan, [facility] [place] [facility] [address] [id number] [place] [address]- 6813 Jan, [facility] [place] [facility] [address] [id number] [place] [address]- 9884 Jan, [facility] [place] [facility] [address] [id number] [place] [address]- 6918 Jan, [facility] [place] [facility] [address] [id number] [place] [address]- 2227 Jan, [facility] [place] [facility] [address] [id number] [place] [address]- 9916 Jan, [facility] [place] [facility] [address] [id number] [place] [address]- 4595 Dec, [facility] [place] [facility] [address] [id number] [place] [address]- 0537 Dec, [facility] [place] [facility] [address] [id number] [place] [address]- 0144 Dec, [facility] [place] [facility] [address] [id number] [place] [address]- 1658 Dec, [facility] [place] [facility] [address] [id number] [place] [address]- 8012 Dec, [facility] [place] [facility] [address] [id number] [place] [address]- 8908 Dec, [facility] [place] [facility] [address] [id number] [place] [address]- 8830 15 Dec, 2012 [facility] [place] [facility] [address] [id number] [place] [address]- 3972 Dec, [facility] [place] [facility] [address] [id number] [place] [address]- 8469 05 Dec, 2012 [facility] [place] [facility] [address] [id number] [address]- 2706 Dec, [facility] [place] [facility] [address] [id number] [place] [address]- 9981 Dec, [facility] [place] [facility] [address] [id number] [place] [address]- 2973 Nov, [facility] [place] [facility] [address] [id number] [place] [address] 2548 Nov, [facility] [place] [facility] [address] [id number] [place] [address]- 6020 Nov, [facility] [place] [facility] [address] [id number] [place] [address]- 9413 Nov, [facility] [place] [facility] [address] [id number] [place] [address]- 5295 Nov, [facility] [place] [facility] [address] [id number] [place] [address]- 5048 Oct, [facility] [place] [facility] [address] [id number] [place] [address]- 0088 Oct, [facility] [place] [facility] [address] [id number] [place] [address]- 3465 Sep, [facility] [place] [facility] [address] [id number] [place] [address]- 4747 Aug, [facility] [place] [facility] [address] [id number] [place] [address]- 3429 Aug, [facility] [place] [facility] [address] [id number] [address]- 9906 Aug, [facility] [place] [facility] [address] [id number] [place] [address] 2548 Aug, [facility] [place] [facility] [address] [id number] [place] [address]- 3838 Jul, [facility] [place] [facility] [address] [id number] [place] [address]- 2541 Jul, [facility] [place] [facility] [address] [id number] [place] [address]- 0370 June, [facility] [address] [id number] [place] [address]- 7183 June, [facility] [address] [id number] [place] [address]- 5325 June, [facility] [address] [id number] [place] [address]- 9245 May, [facility] [address] [id number] [place] [address]- 3813 May, [facility] [address] [id number] [place] [address]- 0498 May, [facility] [address] [id number] [place] [address]- 6991 Apr, [facility] [address] [id number] [place] [address]- 1419 Apr, [facility] [address] [id number] [place] [address]- 5746 15 Apr, 2012 [facility] [address] [id number] [place] [address] 14 Apr, 2012 [facility] [address] [facility] [id number] [place] [address] Apr, [facility] [address] [id number] [place] [address] Apr, [facility] [address] [id number] [place] [address] Apr, [facility] [address] [id number] [place] [address] Apr, [facility] [address] [id number] [place] [address] Apr, [facility] [address] [id number] [place] [address] Apr, [facility] [place] [facility] [address] [id number] [place] [address] Apr, [facility] [place] [facility] [address] [id number] [place] [address] Apr, [facility] [place] [facility] [address] [id number] [place] [address] Apr, [facility] [place] [facility] [address] [id number] [place] [address] Mar, [facility] [place] [facility] [address] [id number] [place] [address] Mar, [facility] [place] [facility] [address] [id number] [place] [address] Mar, [facility] [place] [facility] [address] [id number] [place] [address] Mar, [facility] [place] [facility] [address] [id number] [place] [address] Mar, [facility] [place] [facility] [address] [id number] [place] [address] Jan, [facility] [place] [facility] [address] [id number] [place] [address] 28 Jan, 2012 [facility] [place] [facility] [address] [id number] [place] [address]- 1166 22 Jan, 2012 [facility] [place] [facility] [address] [id number] [place] [address]- 1463 22 Jan, 2012 [facility] [place] [facility] [address] [id number] [place] [address]- 4218 14 Jan, 2012 [facility] [place] [facility] [address] [id number] [place] [address]- 1295 13 Jan, 2012 [facility] [place] [facility] [address] [id number] [place] [address]- 1232 13 Jan, 2012 [facility] [place] [facility] [address] [id number] [place] [address]- 7737 11 Jan, 2012 [facility] [address] [id number] [place] [address] 06 Jan, 2012 [facility] [place] [facility] [address] [id number] [place] [address] 06 Jan, 2012 [facility] [address] [id number] [place] [address]- [address]676 Jan, [facility] [place] [facility] [address] [id number] [place] [address] 1279 Jan, [facility] [address] [id number] [place] [address] Jan, [facility] [address] [id number] [place] [address] 49[address] Jan, [facility] [place] [facility] [address] [id number] [place] [address] Dec, [facility] [address] [id number] [place] [address] 26 Jan, 2012 [facility] [place] [facility] [address] [id number] [place] [address]- [address] 19 Jan, 2012 [facility] [address] [facility] [id number] [place] [address]148 19 Jan, 2012 [facility] [place] [facility] [address] [id number] [place] [address]- 9199 15 Jan, 2012 [facility] [place] [facility] [address] [id number] [place] [address]- 9939 15 Jan, 2012 [facility] [place] [facility] [address] [id number] [place] [address]- 4946 14 Jan, 2012 [facility] [place] [facility] [address] [id number] [place] [address]- 1510 14 Jan, 2012 [facility] [place] [facility] [address] [id number] [place] [address]- 1364 14 Jan, 2012 [facility] [place] [facility] [address] [id number] [place] [address]- [address]792 14 Jan, 2012 [facility] [place] [facility] [address] [id number] [place] [address]- 1462 07 Jan, 2012 [facility] [place] [facility] [address] [id number] [place] [address]- 7580 07 Jan, 2012 [facility] [place] [facility] [address] [id number] [place] [address]- 1662 16 Dec, 2011 [facility] [place] [facility] [address] [id number] [place] [address]- 0899 16 Dec, 2011 [facility] [place] [facility] [address] [id number] [place] [address]- [address]130 13 Nov, 2011 [facility] [place] [facility] [address] [id number] [place] [address]- 9654 13 Nov, 2011 [facility] [place] [facility] [address] [id number] [place] [address]- 3483 13 Nov, 2011 [facility] [place] [facility] [address] [id number] [place] [address]- 9972 12 Nov, 2011 [facility] [place] [facility] [address] [id number] [place] [address]- 0932 30 Oct, 2011 [facility] [place] [facility] [address] [id number] [place] [address] 69[address] Sep, [facility] [place] [facility] [address] [id number] [address] 23 Aug, 2011 [facility] [place] [facility] [address] [id number] [place] [address]- [address] Aug, [facility] [place] [facility] [address] [id number] [address] Aug, [facility] [place] [facility] [address] [id number] [address] Aug, [facility] [place] [facility] [address] [id number] [address] June, [facility] [address] [id number] [place] [address] 2546 June, [facility] [address] [id number] [place] [address]- 1676 May, [facility] [address] [id number] [place] [address]- [address]306 Apr, [facility] [address] [id number] [place] [address]- 5736 Apr, [facility] [address] [id number] [place] [address]- 2546 Apr, [facility] [address] [id number] [place] [address] 2546 Apr, [facility] [address] [facility] [id number] [place] [address]- 8606 Apr, [facility] [address] [id number] [place] [address]- 5966 Apr, [facility] [address] [facility] [id number] [place] [address]- 7626 Mar, [facility] [address] [facility] [id number] [place] [address]- 9886 Mar, [facility] [address] [facility] [id number] [place] [address]- 6286 Mar, [facility] [place] [facility] [address] [id number] [place] [address]- 2716 Jan, [facility] [place] [facility] [address] [id number] [place] [address]- 9356 Jan, [facility] [place] [facility] [address] [facility] [id number] [place] [address]- 8836 Jan, [facility] [place] [facility] [address] [facility] [id number] [place] [address]- 7186 Jan, [facility] [place] [facility] [address] [id number] [place] [address]- 0634 Jan, [facility] [place] [facility] [address] [id number] [place] [address] Jan, [facility] [place] [facility] [address] [id number] [place] [address]- 6712 Jan, [facility] [place] [facility] [address] [id number] [place] [address] Dec, [facility] [place] [facility] [address] [id number] [place] [address] Dec, [facility] [place] [facility] [address] [id number] [place] [address] Nov, [facility] [place] [facility] [address] [id number] [place] [address] Nov, [facility] [place] [facility] [address] [id number] [place] [address] Nov, [facility] [place] [facility] [address] [id number] [place] [address] Nov, [facility] [place] [facility] [address] [id number] [place] [address] Oct, [facility] [place] [facility] [address] [id number] [place] [address] Sep, [facility] [place] [facility] [address] [id number] [place] [address] Mar, [facility] [place] [facility] [address] [id number] [place] [address] Jan, [facility] [place] [facility] [address] [id number] [place] [address] Dec, [facility] [place] [facility] [address] [id number] [place] [address] Dec, [facility] [place] [facility] [address] [id number] [place] [address] 04 Dec, 2009 [facility] [address] [id number] [place] [address] Dec, [facility] [place] [facility] [address] [id number] [place] [address] 26 Nov, 2009 [facility] [place] [facility] [address] [facility] [id number] [place] [address] 15 Nov, 2009 [facility] [place] [facility] [address] [id number] [place] [address] 14 Nov, 2009 [facility] [place] [facility] [address] [id number] [place] [address] 14 Nov, 2009 [facility] [place] [facility] [address] [id number] [place] [address] 13 Oct, 2009 [facility] [place] [facility] [address] [id number] [place] [address] 17 Jul, 2009 [facility] [place] [facility] [address] [id number] [address] June, [facility] [place] [facility] [address] [id number] [place] [address] June, [facility] [place] [facility] [address] [facility] [id number] [address] 17 Apr, 2009 [facility] [place] [facility] [address] [id number] [place] [address] Mar, [facility] [place] [facility] [address] [id number] [place] [address] Jan, [facility] [place] [facility] [address] [id number] [place] [address] Jan, [facility] [place] [facility] [address] [facility] [id number] [address] Dec, [facility] [place] [facility] [address] [facility] [id number] [place] [address] Dec, [facility] [place] [facility] [address] [facility] [id number] [place] [address] Dec, [facility] [address] [facility] [id number] [place] [address] Dec, [facility] [address] [facility] [id number] [place] [address] Nov, [facility] [address] [facility] [id number] [address] Jul, [facility] [address] [facility] [id number] [place] [address] June, IMMUNIZATIONS No Known Immunizations SOCIAL HISTORY [...]
--- OUTSIDE RECORDS SUMMARY | 2018-02-26 19:13 | XMS REPORT ---
Author Author GRAHAM CHRIS [facility] Address [address] [place] [address] Care Team Providers Care Snow Removal/Plowing Name Role Phone GRAHAMELLIOTT HANNAHANY Unavailable PROBLEMS Type Condition ICD9-CM Code CHX25-YA Code Onset Dates Condition Status SNOMED Code Problem Pulmonary asbestosis J61 Active 65183180 Problem Left ventricular diastolic dysfunction I51.9 Active 593338748 Problem Chronic gout, unspecified cause, unspecified site M1A.[id number] Active 15370686 Problem Renal cyst, left N28.1 Active 28604575 Problem History of weight loss surgery Z98.84 Active 556613633 Problem Nocturnal hypoxia G47.34 Active 103925575 Problem Obstructive sleep apnea syndrome G47.33 Active 60161831 Problem History of diverticulitis Z87.19 Active [id number] Problem Allergic rhinitis, unspecified allergic rhinitis type J30.9 Active 84566452 Problem Erectile dysfunction due to diseases classified elsewhere N52.1 Active 505691977 Problem Acute right-sided low back pain with right-sided sciatica M54.41 Active 784806363 Problem Psoriasis L40.9 Active 6229248 Problem Essential hypertension I10 Active 45906016 Problem Nephrolithiasis N20.0 Active 97863068 Problem Chronic prescription opiate use Z79.899 Active 643400231 Problem 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 Active 52589604 Problem Benign prostatic hyperplasia, presence of lower urinary tract symptoms unspecified, unspecified morphology N40.0 Active 867508278 Problem Moderate episode of recurrent major depressive disorder F33.1 Active 275197192 Problem Age-related osteoporosis without current pathological fracture M81.0 Active 84327569 Problem Low back pain M54.5 Active 654433653 Problem Anxiety F41.9 Active 39841382 Problem Urge incontinence N39.41 Active 352917748 Problem Hyperlipidemia, unspecified E78.5 Active 32572336 Problem Esophageal stricture K22.2 Active 45657768 Problem Cervicalgia M54.2 Active 0011179480825 Problem Primary insomnia F51.01 Active 356723428 ALLERGIES No Information ENCOUNTERS Encounter Location Date Diagnosis [facility] [address] [address]- [address] June, Anxiety F41.9 [facility] [address] 22256- 6474 June, [facility] [address] 38098- 9646 June, Low back pain M54.5 ; Chronic prescription opiate use Z79.899 ; Candidal intertrigo B37.2 ; Urge incontinence N39.41 ; Essential hypertension I10 ; Moderate episode of recurrent major depressive disorder F33.1 ; Age-related osteoporosis without current pathological fracture M81.0 and BMI 45.0-49.9, adult Z68.42 [place] [address] 35912- 1068 June, [facility] [address] 01475- 4516 May, Anxiety F41.9 [place] [address] 77338- 1848 May, [facility] [address] 18046- 3367 May, [facility] [address] 86255- 1779 Apr, Anxiety F41.9 [facility] [address] 36770- 5718 Apr, [facility] [address] 79707- 2490 15 Apr, 2017 Low back pain M54.5 [facility] [address] 36323- 3945 02 Apr, 2017 [facility] [address] 54388- 0991 Apr, [facility] [address] [place] [id number] [place] [address] 46031- 3806 Apr, Anxiety F41.9 [facility] [address] [id number] [place] [address] 97437- 0014 Apr, Right groin pain R10.31 [place] [address] 80344- 3555 Mar, [place] [address] [id number] [place] [address] 47530- 0988 Mar, [place] [address] 09240- 5800 Mar, Anxiety F41.9 [place] [address] [id number] [place] [address] 81940- 9495 Mar, Low back pain M54.5 [place] [address] [id number] [place] [address] 83251- 4332 Mar, Right groin pain R10.31 ; Low back pain M54.5 and BMI 45.0- 49.9, adult Z68.42 [place] [address] [id number] [place] [address] 82812- 7579 Mar, [place] [address] [id number] [place] [address] 65756- 9463 Mar, [place] [address] [id number] [place] [address] 73348- 1005 Mar, [facility] [id number] [place] [address] 33607 -9742 Mar, [facility] [place] [address] [place] [id number] [place] [address] 61270 -5362 Mar, Cough R05 ; Pneumonia of right lower lobe due to infectious organism J18.1 and Abnormal chest x-ray R93.8 [place] [address] [place] [address]- 7116 Mar, [facility] [id number] [place] [address] 29279- 3065 Mar, [facility] [id number] [place] [address] 32292- 0989 Jan, Anxiety F41.9 [facility] [address] 56651- 2788 Jan, [facility] [id number] [place] [address] 59163- 1768 Jan, Moderate episode of recurrent major depressive disorder F33.1 [facility] [id number] [place] [address] 42644- 0599 Jan, Subacromial bursitis of right shoulder joint M75.51 ; Shortness of breath on exertion R06.02 and BMI 45.0-49.9, adult Z68.42 [facility] [id number] [place] [address] 61895- 6887 Dec, Anxiety F41.9 [facility] [id number] [place] [address] 13839- 6333 Dec, [facility] [id number] [place] [address] 74012- 9152 Dec, Low back pain M54.5 [facility] [id number] [place] [address] 49096- 1719 Oct, Low back pain M54.5 [facility] [id number] [place] [address] 75806- 6544 Sep, [facility] [id number] [place] [address] 27696- 5182 Sep, Erectile dysfunction due to diseases classified elsewhere N52.1 [facility] [id number] [place] [address] 48423- 2943 Sep, Erectile dysfunction due to diseases classified elsewhere N52.1 [place] [address] [place] [id number] [place] [address] 19130- 2546 Sep, [facility] [address] 20423- 0043 Sep, Erectile dysfunction due to diseases classified elsewhere N52.1 [facility] [address] 29009- 0191 Sep, Low back pain M54.5 and Anxiety F41.9 [facility] [address] 15021 -0280 Aug, Acute allergic rhinitis J30.9 [facility] [address] 77317- 8715 Aug, [facility] [address] 78333- 5770 Aug, Anxiety F41.9 [facility] [address] 12695- 7223 Jul, Low back pain M54.5 ; Chronic prescription opiate use Z79.899 and Essential hypertension I10 [facility] [address] 69489- 1509 Jul, Anxiety F41.9 and Low back pain M54.5 [facility] [id number] [place] [address] 83207- 7740 June, [facility] [id number] [place] [address] 35414- 8802 June, Anxiety F41.9 [facility] [id number] [place] [address] 27245- 6000 May, Low back pain M54.5 [facility] [id number] [place] [address] 93296- 2884 May, [facility] [id number] [place] [address] 52139- 8034 May, Anxiety F41.9 [place] [address] [id number] [place] [address] 53625- 9955 Apr, [place] [address] 53089- 8709 Apr, Low back pain M54.5 [place] [address] 63959- 6952 Apr, Moderate episode of recurrent major depressive disorder F33.1 [place] [address] 10418- 2901 Apr, Anxiety F41.9 [place] [address] 83456- 5472 Apr, Low back pain M54.5 [place] [address] 35173- 8430 15 Apr, 2016 Elevated alkaline phosphatase level R74.8 [place] [address] [id number] [place] [address] 00133- 3216 10 Apr, 2016 Alkaline phosphatase elevation R74.8 [place] [address] 58962- 4100 06 Apr, 2016 Anxiety F41.9 [place] [address] [id number] [place] [address] 04402- 9560 Apr, Low back pain M54.5 [place] [address] [id number] [place] [address] 14184- 3287 Apr, History of weight loss surgery Z98.84 ; Encounter for hepatitis C screening test for low risk patient Z11.59 ; History of herpes genitalis Z86.19 ; Essential hypertension I10 ; Hyperlipidemia, unspecified E78.5 ; Exposure to STD Z20.2 and Benign prostatic hyperplasia, presence of lower urinary tract symptoms unspecified, unspecified morphology N40.0 [place] [address] [place] [id number] [place] [address] 73328- 6053 Apr, [place] [address] [address]- 9359 Mar, [facility] [address] [place] [address] 57932- 5392 Mar, [facility] [address] [address]- 4716 Mar, [facility] [address] [place] [address] 10785- 4784 Mar, Acute right-sided low back pain with right-sided sciatica M54.41 [place] [address] [place] [address] 98486- 1608 Mar, Low back pain M54.5 [facility] [address] [place] [address] 22499 -3171 13 Mar, 2016 Muscle strain of chest wall, initial encounter S29.011A ; Muscle strain of right thigh, initial encounter S76.911A and Acute non- recurrent maxillary sinusitis J01.00 [facility] [address] [place] [address] 26287- 0292 03 Mar, 2016 Benign prostatic hyperplasia, presence of lower urinary tract symptoms unspecified, unspecified morphology N40.0 [place] [address] [address]- 5642 23 Jan, 2016 Low back pain M54.5 [facility] [address] [place] [address] 95755- 8532 13 Jan, 2016 Low back pain M54.5 ; Essential hypertension I10 ; Hyperlipidemia, unspecified E78.5 ; Anxiety F41.9 ; Moderate episode of recurrent major depressive disorder F33.1 ; Primary insomnia F51.01 ; Exposure to STD Z20.2 ; Encounter for hepatitis C screening test for low risk patient Z11.59 and History of herpes genitalis Z86.19 [facility] [address] [address]- 5512 17 Jan, 2016 [facility] [id number] [place] [address] 22948- 7704 Nov, [facility] [id number] [place] [address] 87350- 4681 Nov, Anxiety F41.9 ; Cervicalgia M54.2 ; Moderate episode of recurrent major depressive disorder F33.1 and Encounter for immunization Z23 [facility] [id number] [place] [address] 02948- 7768 Oct, [facility] [address] 92714- 7438 Oct, [facility] [address] 10929- 5837 16 Nov, 2015 [facility] [address] 33050- 3637 Oct, [facility] [id number] [place] [address] 20888- 1017 Sep, [facility] [address] [id number] [place] [address] 89438- 0958 Aug, Low back pain M54.5 ; Anxiety F41.9 ; Primary insomnia F51.01 and Chronic prescription opiate use Z79.899 [facility] [id number] [place] [address] 56090- 2652 Jul, [facility] [id number] [place] [address] 37962- 5984 Jul, [facility] [id number] [place] [address] 08060- 2925 Jul, [facility] [id number] [place] [address] 86733- 8600 Jul, [facility] [id number] [place] [address] 52762- 7414 Jul, [facility] [id number] [place] [address] 73876- 1723 June, [facility] [address] [address]- 7171 June, [facility] [id number] [place] [address] 16637- 9656 June, [facility] [id number] [place] [address] 82374- 6299 June, [facility] [id number] [place] [address] 71630- 1677 May, Preoperative cardiovascular examination Z01.810 [facility] [id number] [place] [address] 46411- 3264 May, [facility] [id number] [place] [address] 23688- 3788 Apr, [facility] [id number] [place] [address] 30932- 5937 Apr, Osteoarthritis of right knee M17.9 [facility] [id number] [place] [address] 25080- 6012 30 May, 2015 [facility] [id number] [place] [address] 34640- 6940 16 May, 2015 [facility] [id number] [place] [address] 10414- 2920 Apr, [facility] [id number] [place] [address] 72138- 8275 Apr, [facility] [id number] [place] [address] 65620- 5443 08 May, 2015 History of excessive cerumen Z78.9 ; Obstructive sleep apnea syndrome G47.33 ; History of diverticulitis Z87.19 and Nephrolithiasis N20.0 [facility] [address], [place] [address]- 4451 Apr, [facility] [address] [place] [address] 22855 -9913 Apr, Abdominal pain R10.9 [facility] [id number] [place] [address] 11895- 7743 10 Apr, 2015 [facility] [address] 33520- 8647 04 Apr, 2015 Osteoarthritis of right knee M17.9 [facility] [address] 32534- 8691 Mar, [facility] [address] 32739- 0756 Mar, [facility] [address] 53166- 1622 Mar, [place] [address] 41927- 8387 Mar, [facility] [address] 98959 -9961 Mar, Pyelonephritis N12 ; Left-sided thoracic back pain M54.6 ; Hematuria, unspecified R31.9 and Kidney stone N20.0 [place] [address] 34812- 9177 Mar, History of weight loss surgery Z98.84 [place] [address] [place] [id number] [place] [address] 47365- 3664 Mar, History of weight loss surgery Z98.84 and Hyperlipidemia, unspecified E78.5 [place] [address] [place] [id number] [place] [address] 89915- 1128 Mar, Low back pain M54.5 ; Chronic prescription opiate use Z79.899 ; Hyperlipidemia, unspecified E78.5 ; Spasm of back muscles M62.830 and History of weight loss surgery Z98.84 [facility] [id number] [place] [address] 90530- 4138 Jan, [place] [address] 99078- 0505 Jan, [facility] [address], [place] [address]- 4971 Jan, [facility] [address] 0904 Dec, [facility] [address]- 0455 Dec, [facility] [id number] [place] [address] 482340- 6522 Dec, [facility] [address] [place] [address] 218843- 7513 Nov, [facility] [address] [place] [address] 37094- 0881 Nov, Obstructive sleep apnea syndrome G47.33 and Pharyngoesophageal dysphagia R13.14 [facility] [id number] [place] [address] 20957- 8880 Nov, [facility] [address] [place] [address] 09890- 5757 Nov, [facility] [address] [place] [address] 90308- 4434 Nov, [facility] [address] [id number] 30 Oct, 2014 Dental examination V72.2 [facility] [address], [place] [address]- 5552 Oct, [facility] [address], [place] [address]- [address]24 Oct, [facility] [id number] [place] [address] 78109- 2673 23 Oct, [address] [facility] [address] 0479 17 Oct, 2014 [facility] [address] [place] [address] 56552- 4351 Oct, BPH (benign prostatic hyperplasia) 600.00 and Urinary frequency 788.41 [facility] [id number] [place] [address] 22247- 6947 Oct, [facility] [id number] [place] [address] 85653- 9247 Oct, [facility] [id number] [place] [address] 16651- 4355 Oct, [facility] [id number] [place] [address] 81930- 6291 Sep, Cerumen impaction 380.4 ; Cerumen debris on tympanic membrane 380.4 ; Psoriasis 696.1 and MICKY (secretory otitis media) 381.[address] [facility] [id number] [place] [address] [id number] Sep, Dental examination V72.2 [facility] [id number] [place] [address] 53979- 6450 Sep, Fatigue 780.79 ; Irritable bowel syndrome 564.1 ; Overweight 278.02 ; Poor sleep V69.4 ; Shaking spells 781.0 and Broken tooth 873.63 [facility] [address] [place] [address] 40441- 6055 Sep, [facility] [address] [place] [address] 05058- 8593 Sep, [facility] [id number] [place] [address] 92129- 7391 Aug, [facility] [address] [place] [address] 14854- 4470 Jul, [facility] [id number] [place] [address] 39332- 5980 Jul, [facility] [address] [place] [address] 01486- 6092 Jul, [facility] [id number] [place] [address]- 9807 Jul, [facility] [address] [id number] [place] [address]- 9930 June, Arthritis of knee, right 716.96 [facility] [address] [id number] [place] [address]- 8438 June, [facility] [address] [id number] [place] [address]- 3515 June, Elevated blood pressure reading without diagnosis of hypertension 796.2 [facility] [address] [id number] [place] [address]- 7619 June, [facility] [address] [id number] [place] [address]- 8269 June, [facility] [id number] [place] [address]- 0945 June, [facility] [address] [id number] [place] [address]- 2559 June, [facility] [address] [id number] [place] [address]- 1762 May, [facility] [address] [id number] [place] [address]- 0698 May, [facility] [address] [id number] [place] [address]- 5090 Apr, [facility] [address] [id number] [place] [address]- 9309 Apr, [facility] [address] [id number] [place] [address]- 9894 Apr, [facility] [address] [id number] [place] [address]- 7975 Apr, [facility] [address] [id number] [place] [address]- 1812 Apr, [facility] [address] [id number] [place] [address]- 8930 Apr, 2014 [facility] [place] [facility] [address] [id number] [place] [address]- 6011 Apr, 2014 [facility] [place] [facility] [address] [id number] [place] [address]- 4320 Apr, 2014 [facility] [place] [facility] [address] [id number] [place] [address]- 5138 Apr, 2014 [facility] [place] [facility] [address] [id number] [place] [address]- 4806 Apr, 2014 [facility] [place] [facility] [address] [id number] [place] [address]- 3865 Apr, 2014 [facility] [place] [facility] [address] [facility] [id number] [place] [address]- 1864 Apr, 2014 [facility] [place] [facility] [address] [facility] [id number] [place] [address] Apr, 2014 [facility] [place] [facility] [address] [id number] [place] [address] Apr, 2014 [facility] [place] [facility] [address] [facility] [id number] [place] [address] Apr, 2014 [facility] [place] [facility] [address] [facility] [id number] [place] [address] Apr, 2014 [facility] [place] [facility] [address] [facility] [id number], [place] [address] Apr, 2014 [facility] [place] [facility] [address] [facility] [id number] [place] [address] Apr, 2014 [facility] [place] [facility] [address] [facility] [id number] [place] [address] Apr, 2014 [facility] [place] [facility] [address] [facility] [id number] [place] [address] Apr, 2014 [facility] [place] [facility] [address] [facility] [id number] [place] [address] Apr, 2014 [facility] [place] [facility] [address] [id number] [place] [address] Apr, 2014 [facility] [place] [facility] [address] [id number] [place] [address] Apr, 2014 [facility] [place] [facility] [address] [facility] [id number] [place] [address] Apr, 2014 [facility] [place] [facility] [address] [id number] [place] [address] Apr, 2014 [facility] [place] [facility] [address] [id number] [place] [address] Apr, 2014 [facility] [place] [facility] [address] [facility] [id number] [place] [address] Apr, 2014 [facility] [place] [facility] [address] [id number] [place] [address] Apr, 2014 [facility] [place] [facility] [address] [facility] [id number] [place] [address] Apr, 2014 [facility] [place] [facility] [address] [facility] [id number] [place] [address] Apr, 2014 [facility] [place] [facility] [address] [facility] [id number] [place] [address] Apr, 2014 [facility] [place] [facility] [address] [facility] [id number] [place] [address] 2545 Apr, 2014 [facility] [place] [facility] [address] [facility] [id number] [place] [address] 254 Apr, 2014 [facility] [place] [facility] [address] [facility] [id number] [place] [address] 68[address] Mar, [facility] [place] [facility] [address] [facility] [id number] [place] [address] 7249 Mar, [facility] [place] [facility] [address] [facility] [id number] [place] [address] 0953 Mar, [facility] [place] [facility] [address] [id number] [place] [address] 8391 Mar, [facility] [place] [facility] [address] [id number] [place] [address]- 3052 Mar, [facility] [place] [facility] [address] [id number] [place] [address] 1992 Mar, [facility] [place] [facility] [address] [id number] [place] [address]- 6175 Mar, [facility] [place] [facility] [address] [id number] [place] [address]- 0918 Mar, [facility] [place] [facility] [address] [id number] [place] [address]- 9841 Mar, [facility] [place] [facility] [address] [id number] [place] [address]- 3271 Mar, [facility] [place] [facility] [address] [id number] [place] [address]- 1720 Jan, [facility] [place] [facility] [address] [id number] [place] [address]- 3950 Jan, [facility] [place] [facility] [address] [id number] [place] [address]- 4774 Jan, [facility] [place] [facility] [address] [id number], [place] [address]- 1331 Jan, [facility] [place] [facility] [address] [id number], [place] [address]- 1508 Jan, [facility] [place] [facility] [address] [id number] [place] [address]- 2245 Jan, [facility] [place] [facility] [address] [id number] [place] [address]- 6768 Jan, [facility] [place] [facility] [address] [id number] [place] [address]- 8308 Jan, [facility] [place] [facility] [address] [id number] [place] [address]- 0894 05 Jan, 2014 [facility] [place] [facility] [address] [id number] [place] [address]- 2053 05 Jan, 2014 [facility] [place] [facility] [address] [id number] [place] [address]- 7055 Jan, [facility] [place] [facility] [address] [id number] [place] [address]- 8334 Jan, [facility] [place] [facility] [address] [id number] [place] [address]- 8917 Dec, [facility] [place] [facility] [address] [id number] [place] [address]- 5731 Dec, [facility] [place] [facility] [address] [id number] [place] [address]- 7088 Dec, [facility] [place] [facility] [address] [id number] [place] [address]- 5574 Dec, [facility] [place] [facility] [address] [id number] [place] [address]- 8622 Dec, [facility] [place] [facility] [address] [id number] [place] [address]- 0956 Dec, [facility] [place] [facility] [address] [facility] [id number] [place] [address]- 4772 Dec, [facility] [place] [facility] [address] [id number] [place] [address]- 2664 Dec, [facility] [place] [facility] [address] [id number] [place] [address]- 2474 Dec, [facility] [place] [facility] [address] [id number] [place] [address]- 9613 Dec, [facility] [place] [facility] [address] [id number] [place] [address]- 2432 Nov, [facility] [place] [facility] [address] [id number] [place] [address]- 3149 Nov, [facility] [place] [facility] [address] [id number] [place] [address]- 0495 Nov, 2013 [facility] [place] [facility] [address] [id number] [place] [address]- 7872 Nov, [facility] [place] [facility] [address] [id number] [place] [address]- 5478 Nov, [facility] [place] [facility] [address] [id number] [place] [address]- 9582 Nov, [facility] [place] [facility] [address] [id number] [place] [address]- 5351 Nov, [facility] [place] [facility] [address] [id number] [place] [address]- 9275 Nov, [facility] [place] [facility] [address] [id number] [place] [address]- 1488 Nov, [facility] [place] [facility] [address] [id number] [place] [address]- 7415 Nov, [facility] [place] [facility] [address] [id number] [place] [address]- 4152 Nov, [facility] [place] [facility] [address] [id number] [place] [address]- 9876 17 Nov, 2013 [facility] [place] [facility] [address] [id number] [place] [address]- 7403 14 Nov, 2013 [facility] [place] [facility] [address] [id number] [place] [address]- 4611 14 Nov, 2013 [facility] [place] [facility] [address] [id number] [place] [address]- 6962 10 Nov, 2013 [facility] [place] [facility] [address] [id number] [place] [address]- 5977 10 Nov, 2013 [facility] [place] [facility] [address] [id number] [place] [address]- 7325 08 Nov, 2013 [facility] [place] [facility] [address] [id number], [place] [address]- 4812 Nov, [facility] [place] [facility] [address] [id number] [place] [address]- 9931 Nov, [facility] [place] [facility] [address] [id number] [place] [address]- 0766 Nov, [facility] [place] [facility] [address] [id number] [place] [address]- 9372 Oct, [facility] [place] [facility] [address] [id number] [place] [address]- 1267 Oct, [facility] [place] [facility] [address] [id number] [place] [address]- 4341 Oct, [facility] [place] [facility] [address] [id number] [place] [address]- 8122 Oct, [facility] [place] [facility] [address] [id number] [place] [address]- 3934 Oct, [facility] [place] [facility] [address] [id number] [place] [address]- 8611 Oct, [facility] [place] [facility] [address] [id number] [place] [address]- 0382 Oct, [facility] [place] [facility] [address] [id number] [place] [address]- 4899 Oct, [facility] [place] [facility] [address] [id number] [place] [address]- 7666 Oct, [facility] [place] [facility] [address] [id number] [place] [address]- 6401 Oct, [facility] [place] [facility] [address] [id number] [place] [address]- 0384 Sep, [facility] [place] [facility] [address] [id number] [place] [address]- 0744 Sep, [facility] [place] [facility] [address] [id number] [place] [address]- 8132 Sep, [facility] [place] [facility] [address] [id number] [place] [address]- 7254 Sep, [facility] [place] [facility] [address] [id number] [place] [address]- 1624 Sep, [facility] [place] [facility] [address] [id number] [place] [address]- 7697 Sep, [facility] [place] [facility] [address] [id number] [place] [address]- 5573 Sep, [facility] [place] [facility] [address] [id number] [place] [address]- 2913 Sep, [facility] [place] [facility] [address] [id number] [place] [address]- 6616 Sep, [facility] [place] [facility] [address] [id number] [place] [address]- 2157 Sep, [facility] [place] [facility] [address] [id number] [place] [address]- 9342 Sep, [facility] [place] [facility] [address] [id number] [place] [address]- 4132 Sep, [facility] [place] [facility] [address] [id number] [place] [address]- 8974 Sep, [facility] [place] [facility] [address] [id number] [place] [address]- 7606 Sep, [facility] [place] [facility] [address] [id number] [place] [address]- 9259 Sep, [facility] [place] [facility] [address] [id number] [place] [address]- 9782 Sep, [facility] [place] [facility] [address] [id number] [place] [address]- 8904 Sep, [facility] [place] [facility] [address] [id number] [place] [address]- 2531 Sep, [facility] [place] [facility] [address] [id number] [place] [address]- 5185 Sep, [facility] [place] [facility] [address] [id number] [place] [address]- 1708 Sep, [facility] [place] [facility] [address] [id number] [place] [address]- 8581 Sep, [facility] [place] [facility] [address] [id number] [place] [address]- 6383 Sep, [facility] [place] [facility] [address] [id number] [place] [address]- 7201 Sep, [facility] [place] [facility] [address] [id number] [place] [address]- 3485 Sep, [facility] [place] [facility] [address] [id number] [place] [address]- 2282 Sep, [facility] [place] [facility] [address] [id number] [place] [address]- 1004 Aug, [facility] [place] [facility] [address] [id number] [place] [address]- 8241 Aug, [facility] [place] [facility] [address] [id number] [place] [address]- 1420 Aug, [facility] [place] [facility] [address] [id number] [place] [address]- 4203 Aug, [facility] [place] [facility] [address] [id number] [place] [address]- 9300 Aug, [facility] [place] [facility] [address] [id number] [place] [address]- 9152 Aug, [facility] [place] [facility] [address] [id number] [place] [address]- 3919 Aug, [facility] [place] [facility] [address] [id number] [place] [address]- 5248 Aug, [facility] [place] [facility] [address] [id number] [place] [address]- 5549 Aug, [facility] [place] [facility] [address] [id number] [place] [address]- 0925 Aug, [facility] [place] [facility] [address] [id number] [place] [address]- 5353 Aug, [facility] [place] [facility] [address] [id number] [place] [address]- 3567 Aug, [facility] [place] [facility] [address] [id number] [place] [address]- 2787 Aug, [facility] [place] [facility] [address] [id number] [place] [address]- 9672 Jul, [facility] [place] [facility] [address] [id number] [place] [address]- 8299 Jul, [facility] [place] [facility] [address] [id number] [place] [address]- 7691 Jul, [facility] [place] [facility] [address] [id number] [place] [address]- 6339 Jul, [facility] [place] [facility] [address] [id number] [place] [address]- 4316 Jul, [facility] [place] [facility] [address] [id number] [place] [address]- 0547 Jul, [facility] [place] [facility] [address] [id number] [place] [address]- 1560 Jul, [facility] [place] [facility] [address] [id number] [place] [address]- 0682 June, [facility] [place] [facility] [address] [id number] [place] [address]- 3950 June, [facility] [place] [facility] [address] [id number] [place] [address]- 2719 June, [facility] [place] [facility] [address] [id number] [place] [address]- 9734 June, [facility] [place] [facility] [address] [id number] [place] [address]- 2460 May, [facility] [place] [facility] [address] [id number] [place] [address]- 5402 May, [facility] [place] [facility] [address] [id number] [place] [address]- 1909 May, [facility] [place] [facility] [address] [id number] [place] [address]- 3009 May, [facility] [place] [facility] [address] [id number] [place] [address]- 7168 May, [facility] [place] [facility] [address] [id number] [place] [address]- 7264 May, [facility] [place] [facility] [address] [id number] [place] [address]- 7237 May, [facility] [place] [facility] [address] [id number] [place] [address]- 9061 May, [facility] [place] [facility] [address] [id number] [place] [address]- 3478 May, [facility] [place] [facility] [address] [id number] [place] [address]- 2998 May, [facility] [place] [facility] [address] [id number] [place] [address]- 2820 Apr, [facility] [place] [facility] [address] [id number] [place] [address]- 3929 Apr, [facility] [place] [facility] [address] [id number] [place] [address]- 4864 Apr, [facility] [place] [facility] [address] [id number] [place] [address]- 1466 Apr, [facility] [place] [facility] [address] [id number] [place] [address]- 2553 Apr, [facility] [place] [facility] [address] [id number] [place] [address]3 Apr, [facility] [place] [facility] [address] [id number] [place] [address]- 4625 Apr, [facility] [address] [id number] [place] [address]- 4317 Apr, [facility] [place] [facility] [address] [id number] [place] [address]- 2156 Apr, [facility] [place] [facility] [address] [id number] [place] [address]- 0066 Apr, [facility] [place] [facility] [address] [id number] [place] [address]- 2826 Mar, [facility] [place] [facility] [address] [id number] [place] [address]- 4454 Mar, [facility] [address] [id number] [place] [address]- 1719 Mar, [facility] [address] [id number] [place] [address]- 9172 Mar, [facility] [place] [facility] [address] [id number] [place] [address]- 5061 Mar, [facility] [address] [id number] [place] [address]- 1102 Mar, [facility] [place] [facility] [address] [facility] [id number] [place] [address]- 8678 Jan, [facility] [place] [facility] [address] [id number] [place] [address]- 3182 Jan, [facility] [place] [facility] [address] [id number], [place] [address]- 9002 Jan, [facility] [place] [facility] [address] [id number] [place] [address]- 3434 Jan, [facility] [place] [facility] [address] [id number] [place] [address]- 9193 Jan, [facility] [place] [facility] [address] [id number] [place] [address]- 2302 Jan, [facility] [place] [facility] [address] [id number] [place] [address]- 4565 Jan, [facility] [address] [id number] [place] [address]- 9985 Jan, [facility] [place] [facility] [address] [id number] [place] [address]60 Jan, [facility] [place] [facility] [address] [id number] [place] [address]- 4986 Dec, [facility] [place] [facility] [address] [id number] [place] [address]- 8302 Dec, [facility] [place] [facility] [address] [id number] [place] [address]- 7712 Dec, [facility] [place] [facility] [address] [id number] [place] [address]- 1620 Dec, [facility] [place] [facility] [address] [id number] [place] [address]- 3177 Dec, [facility] [address] [id number] [place] [address]- 4827 Dec, [facility] [place] [facility] [address] [id number] [place] [address]- 8861 Dec, [facility] [place] [facility] [address] [facility] [id number] [place] [address]- 7780 Dec, [facility] [place] [facility] [address] [id number] [place] [address]- 0993 Dec, [facility] [place] [facility] [address] [id number] [place] [address]- 7044 Dec, [facility] [place] [facility] [address] [id number] [place] [address]- 7836 Dec, [facility] [place] [facility] [address] [id number] [place] [address]- 1665 Nov, [facility] [place] [facility] [address] [id number] [place] [address]- 0682 Nov, [facility] [address] [id number] [place] [address]- 9086 Nov, [facility] [place] [facility] [address] [id number] [place] [address]- 6181 Nov, [facility] [place] [facility] [address] [id number] [place] [address]- 3513 Nov, [facility] [place] [facility] [address] [id number] [place] [address]- 8016 Oct, [facility] [place] [facility] [address] [id number] [place] [address]- 6027 Oct, [facility] [place] [facility] [address] [id number] [place] [address]- 7558 Sep, [facility] [place] [facility] [address] [id number] [place] [address]- 9838 Aug, [facility] [place] [facility] [address] [id number] [place] [address]- 9678 Aug, [facility] [place] [facility] [address] [id number] [place] [address]- 5366 Aug, [facility] [place] [facility] [address] [id number], [place] [address]- 7692 Aug, [facility] [place] [facility] [address] [id number] [place] [address]- 3801 Jul, [facility] [place] [facility] [address] [id number], [place] [address]- 5416 Jul, [facility] [place] [facility] [address] [id number] [place] [address]- 3414 June, [facility] [place] [facility] [address] [id number] [place] [address]- 1649 June, [facility] [place] [facility] [address] [id number] [place] [address]- 6905 June, [facility] [place] [facility] [address] [id number] [place] [address]- 5379 08 May, 2012 [facility] [address] [id number] [place] [address]- 7134 04 May, 2012 [facility] [place] [facility] [address] [facility] [id number] [place] [address]- 0662 May, [facility] [address] [facility] [id number] [place] [address]- 7169 18 Apr, 2012 [facility] [place] [facility] [address] [facility] [id number] [place] [address]- 8562 18 Apr, 2012 [facility] [address] [id number] [place] [address]- 3324 15 Apr, 2012 [facility] [place] [facility] [address] [facility] [id number] [place] [address]- 1160 14 Apr, 2012 [facility] [address] [id number] [place] [address]- 6761 12 Apr, 2012 [facility] [place] [facility] [address] [facility] [id number] [place] [address] 27 Apr, 2012 [facility] [place] [facility] [id number] [place] [address] 25 Apr, 2012 [facility] [place] [facility] [address] [id number] [place] [address] 25 Apr, 2012 [facility] [place] [facility] [id number] [place] [address] 21 Apr, 2012 [facility] [place] [facility] [address] [facility] [id number] [place] [address] 69[address] 20 Apr, 2012 [facility] [place] [facility] [address] [facility] [id number] [place] [address] 19 Apr, 2012 [facility] [place] [facility] [address] [facility] [id number] [place] [address] 96[address] 07 Apr, 2012 [facility] [place] [facility] [id number] [place] [address] 07 Apr, 2012 [facility] [address] [id number] [place] [address] Mar, [facility] [place] [facility] [address] [id number] [place] [address] Mar, [facility] [address] [id number] [place] [address] Mar, [facility] [place] [facility] [address] [id number] [place] [address]100 Mar, [facility] [address] [id number] [place] [address] Mar, [facility] [address] [id number] [place] [address] 17[address] Jan, [facility] [address] [id number] [place] [address] Jan, [facility] [address] [id number] [place] [address] 1665 Jan, [facility] [address] [id number] [place] [address] Jan, [facility] [address] [id number] [place] [address] 2884 14 Jan, 2012 [facility] [place] [facility] [address] [id number] [place] [address] 1695 Jan, [facility] [place] [facility] [address] [id number] [place] [address] 3920 13 Jan, 2012 [facility] [place] [facility] [address] [id number] [place] [address] 5333 11 Jan, 2012 [facility] [place] [facility] [address] [id number] [place] [address] 8076 06 Jan, 2012 [facility] [place] [facility] [address] [id number] [place] [address] 7651 06 Jan, 2012 [facility] [place] [facility] [address] [id number] [place] [address]- 5792 04 Jan, 2012 [facility] [place] [facility] [address] [id number] [place] [address]- 1477 04 Jan, 2012 [facility] [place] [facility] [address] [id number] [place] [address] 9316 Jan, [facility] [place] [facility] [address] [id number] [place] [address] 9867 Jan, [facility] [place] [facility] [address] [id number] [place] [address] 9239 26 Jan, 2012 [facility] [place] [facility] [address] [id number] [place] [address] 9592 26 Jan, 2012 [facility] [place] [facility] [address] [id number] [place] [address] 7441 Dec, [facility] [place] [facility] [address] [id number] [place] [address] 6840 19 Jan, 2012 [facility] [place] [facility] [address] [id number] [place] [address] 3404 15 Jan, 2012 [facility] [place] [facility] [address] [id number] [place] [address] 0557 15 Jan, 2012 [facility] [place] [facility] [address] [facility] [id number] [place] [address]- 8793 14 Jan, 2012 [facility] [place] [facility] [address] [id number] [place] [address]- 4620 14 Jan, 2012 [facility] [place] [facility] [address] [id number] [address] 14 Jan, 2012 [facility] [place] [facility] [address] [id number] [place] [address]- 7399 14 Jan, 2012 [facility] [place] [facility] [address] [id number] [place] [address] 0372 07 Jan, 2012 [facility] [place] [facility] [address] [facility] [id number], [place] [address]447 07 Jan, 2012 [facility] [place] [facility] [address] [id number] [place] [address]- 8741 16 Dec, 2011 [facility] [place] [facility] [address] [id number] [place] [address]- 3975 16 Dec, 2011 [facility] [place] [facility] [address] [id number] [place] [address]- 5796 13 Nov, 2011 [facility] [place] [facility] [address] [id number] [place] [address]- 7916 13 Nov, 2011 [facility] [place] [facility] [address] [id number] [place] [address]- 4615 13 Nov, 2011 [facility] [place] [facility] [address] [id number] [place] [address] 5937 Oct, [facility] [place] [facility] [address] [id number] [place] [address] 8666 Sep, [facility] [place] [facility] [address] [id number] [place] [address] 7801 Sep, [facility] [place] [facility] [address] [id number] [place] [address] 9234 Aug, [facility] [place] [facility] [address] [id number] [place] [address]- 4755 Aug, [facility] [place] [facility] [address] [id number] [place] [address] 0763 Aug, [facility] [place] [facility] [address] [id number] [place] [address]- 7083 Aug, [facility] [place] [facility] [address] [id number] [place] [address] June, [facility] [place] [facility] [address] [id number] [place] [address]- 6396 June, [facility] [place] [facility] [address] [id number] [place] [address]245 May, [facility] [place] [facility] [address] [id number] [place] [address]- 8666 Apr, [facility] [address] [id number] [place] [address]- 3266 Apr, [facility] [place] [facility] [address] [id number] [place] [address]- 7192 Apr, [facility] [place] [facility] [address] [id number] [place] [address]- 1151 Apr, [facility] [place] [facility] [address] [id number] [place] [address]- 6963 Apr, [facility] [place] [facility] [address] [id number] [place] [address]- 3722 Apr, [facility] [place] [facility] [address] [id number] [place] [address]- 5622 Mar, [facility] [place] [facility] [address] [id number] [place] [address]- 2243 Mar, [facility] [place] [facility] [address] [id number] [place] [address]- 0070 Mar, [facility] [place] [facility] [address] [id number] [place] [address]- 3260 Jan, [facility] [place] [facility] [address] [id number] [place] [address]- 6863 Jan, [facility] [place] [facility] [address] [id number] [place] [address]- 1039 Jan, [facility] [place] [facility] [address] [id number] [place] [address] Jan, [facility] [place] [facility] [address] [id number] [place] [address] Jan, [facility] [place] [facility] [address] [id number] [place] [address] Jan, [facility] [place] [facility] [address] [id number] [place] [address] Jan, [facility] [place] [facility] [address] [id number] [place] [address] Dec, [facility] [place] [facility] [address] [id number] [place] [address] Dec, [facility] [place] [facility] [address] [id number] [place] [address] Nov, [facility] [place] [facility] [address] [id number] [place] [address] Nov, [facility] [place] [facility] [address] [id number] [place] [address] Nov, [facility] [place] [facility] [address] [id number] [place] [address], [place] [address] Nov, [facility] [place] [facility] [address] [id number] [place] [address] Oct, [facility] [place] [facility] [address] [id number] [place] [address] Sep, [facility] [place] [facility] [address] [id number] [place] [address] Mar, [facility] [place] [facility] [address] [id number] [place] [address] Jan, [facility] [place] [facility] [address] [id number] [place] [address] Dec, [facility] [place] [facility] [address] [id number] [place] [address] Dec, [facility] [place] [facility] [address] [id number] [place] [address] Dec, [facility] [place] [facility] [address] [id number] [place] [address] Dec, [facility] [place] [facility] [address] [id number] [place] [address] Nov, [facility] [place] [facility] [address] [id number] [place] [address] 15 Nov, 2009 [facility] [address] [id number] [place] [address] 14 Nov, 2009 [facility] [place] [facility] [address] [id number] [place] [address] 14 Nov, 2009 [facility] [place] [facility] [address] [id number] [place] [address] 13 Oct, 2009 [facility] [place] [facility] [address] [id number] [place] [address] 17 Jul, 2009 [facility] [place] [facility] [address] [id number] [place] [address] June, [facility] [place] [facility] [address] [id number] [place] [address] June, [facility] [place] [facility] [address] [id number] [place] [address] 17 Apr, 2009 [facility] [place] [facility] [address] [id number], [place] [address] Mar, [facility] [place] [facility] [address] [id number] [place] [address] 24 Jan, 2009 [facility] [place] [facility] [address] [id number], [place] [address] Jan, [facility] [place] [facility] [address] [id number], [place] [address] 27 Dec, 2008 [facility] [place] [facility] [address] [id number], [place] [address] 25 Dec, 2008 [facility] [place] [facility] [address] [id number] [place] [address] 13 Dec, 2008 [facility] [place] [facility] [address] [id number], [place] [address] 13 Dec, 2008 [facility] [place] [facility] [address] [id number] [place] 30 Nov, 2008 [facility] [place] [facility] [address] [id number] [place] [id number] Jul, [facility] [address] [facility] [id number] [place] [id number] June, IMMUNIZATIONS No Known Immunizations SOCIAL HISTORY Never Assessed REASON FOR VISIT PLAN OF CARE VITAL SIGNS MEDICATIONS Unknown Medications RESULTS No Results PROCEDURES No Known procedures INSTRUCTIONS MEDICATIONS ADMINISTERED No Known Medications MEDICAL (GENERAL) HISTORY Type Description Date Medical History hypertension Medical History sleep apnea-did not tolerate CPAP Medical History oxygen dependent at [facility] Medical History colonic polyps Medical [...]
--- OUTSIDE RECORDS SUMMARY | 2018-02-26 19:14 | XMS REPORT ---
Author Author GRAHAM CHRIS [facility] Address [address] [place] [address] Care Team Providers Care Manager Transport Name Role Phone GRAHAMELLIOTT HANNAHANY Unavailable PROBLEMS Type Condition ICD9-CM Code [id number] Code Onset Dates Condition Status SNOMED Code Problem Pulmonary asbestosis J61 Active 62213725 Problem Left ventricular diastolic dysfunction I51.9 Active 138830432 Problem Chronic gout, unspecified cause, unspecified site M1A.9XX0 Active 54416317 Problem Renal cyst, left N28.1 Active 91344244 Problem History of weight loss surgery Z98.84 Active 991284934 Problem Nocturnal hypoxia G47.34 Active 027166064 Problem Obstructive sleep apnea syndrome G47.33 Active 73424721 Problem History of diverticulitis Z87.19 Active 814096565635668 Problem Allergic rhinitis, unspecified allergic rhinitis type J30.9 Active 53281491 Problem Erectile dysfunction due to diseases classified elsewhere N52.1 Active 191193596 Problem Acute right-sided low back pain with right-sided sciatica M54.41 Active 056535048 Problem Psoriasis L40.9 Active 7571402 Problem Essential hypertension I10 Active 10450490 Problem Nephrolithiasis N20.0 Active 47895484 Problem Chronic prescription opiate use Z79.899 Active 336005471 Problem 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 Active 22880913 Problem Benign prostatic hyperplasia, presence of lower urinary tract symptoms unspecified, unspecified morphology N40.0 Active 087541266 Problem Moderate episode of recurrent major depressive disorder F33.1 Active 705388677 Problem Age-related osteoporosis without current pathological fracture M81.0 Active 78675126 Problem Low back pain M54.5 Active 284634342 Problem Anxiety F41.9 Active 50650261 Problem Urge incontinence N39.41 Active 820423384 Problem Hyperlipidemia, unspecified E78.5 Active 98100321 Problem Esophageal stricture K22.2 Active 69920188 Problem Cervicalgia M54.2 Active 7854248689463 Problem Primary insomnia F51.01 Active 527480977 ALLERGIES No Information ENCOUNTERS Encounter Location Date Diagnosis [facility] [address] [address] June, Anxiety F41.9 [facility] [address] [address]- 68[address] June, [facility] [address] 8[address]24- 9[address] June, Low back pain M54.5 ; Chronic prescription opiate use Z79.899 ; Candidal intertrigo B37.2 ; Urge incontinence N39.41 ; Essential hypertension I10 ; Moderate episode of recurrent major depressive disorder F33.1 ; Age-related osteoporosis without current pathological fracture M81.0 and BMI 45.0-49.9, adult Z68.42 [place] [address] [address] June, [facility] [address] [address]- 7756 May, Anxiety F41.9 [place] [address] 99620- 1594 May, [facility] [address] [address]- 8037 May, [facility] [address] 01282- 6409 Apr, Anxiety F41.9 [facility] [address] 19942- 8520 Apr, [facility] [address] 61607- 1128 15 Apr, 2017 Low back pain M54.5 [facility] [address] 0[address]69- 2989 02 Apr, 2017 [facility] [address] 83927- 5261 Apr, [facility] [id number] [place] [address] 83328- 1441 Apr, Anxiety F41.9 [facility] [id number] [place] [address] 89832- 7707 Apr, Right groin pain R10.31 [place] [address] 87178- 5355 Mar, [place] [id number] [place] [address] 39177- 8613 Mar, [place] [address] 49430- 4036 Mar, Anxiety F41.9 [place] [id number] [place] [address] 65460- 1108 Mar, Low back pain M54.5 [place] [id number] [place] [address] 69093- 0639 Mar, Right groin pain R10.31 ; Low back pain M54.5 and BMI 45.0- 49.9, adult Z68.42 [place] [id number] [place] [address] 17065- 6764 Mar, [place] [id number] [place] [address] 15892- 8156 Mar, [place] [id number] [place] [address] 98683- 8049 Mar, [facility] [id number] [place] [address] 31083 -3214 Mar, [facility] [id number] [place] [address] 37326 -7732 Mar, Cough R05 ; Pneumonia of right lower lobe due to infectious organism J18.1 and Abnormal chest x-ray R93.8 [place] [address] [place] [address]- 6734 Mar, [facility] [id number] [place] [address] 92231- 9160 Mar, [facility] [id number] [place] [address] 81264- 1966 Jan, Anxiety F41.9 [facility] [address] 33375- 4719 Jan, [facility] [id number] [place] [address] 41814- 2025 Jan, Moderate episode of recurrent major depressive disorder F33.1 [facility] [id number] [place] [address] 48263- 8922 Jan, Subacromial bursitis of right shoulder joint M75.51 ; Shortness of breath on exertion R06.02 and BMI 45.0-49.9, adult Z68.42 [facility] [id number] [place] [address] 84117- 0396 Dec, Anxiety F41.9 [facility] [id number] [place] [address] 01716- 1991 Dec, [facility] [id number] [place] [address] 21566- 3355 Dec, Low back pain M54.5 [facility] [id number] [place] [address] 29964- 1122 Oct, Low back pain M54.5 [facility] [id number] [place] [address] 36157- 5745 Sep, [facility] [id number] [place] [address] 90209- 4119 Sep, Erectile dysfunction due to diseases classified elsewhere N52.1 [facility] [id number] [place] [address] 08218- 7421 Sep, Erectile dysfunction due to diseases classified elsewhere N52.1 [place] [id number] [place] [address] 23826- 8724 Sep, [facility] [address] 28783- 2416 Sep, Erectile dysfunction due to diseases classified elsewhere N52.1 [facility] [address] 60969- 2805 Sep, Low back pain M54.5 and Anxiety F41.9 [facility] [address] 99396 -5379 Aug, Acute allergic rhinitis J30.9 [facility] [address] 54186- 7550 Aug, [facility] [address] 37265- 7325 Aug, Anxiety F41.9 [facility] [address] 69702- 2438 Jul, Low back pain M54.5 ; Chronic prescription opiate use Z79.899 and Essential hypertension I10 [facility] [address] 64346- 4444 Jul, Anxiety F41.9 and Low back pain M54.5 [facility] [id number] [place] [address] 97275- 4498 June, [facility] [id number] [place] [address] 32450- 9270 June, Anxiety F41.9 [facility] [id number] [place] [address] 48835- 4766 May, Low back pain M54.5 [facility] [id number] [place] [address] 95604- 4325 May, [facility] [id number] [place] [address] 67007- 4165 May, Anxiety F41.9 [place] [id number] [place] [address] 46148- 7971 Apr, [place] [address] 15221- 2293 Apr, Low back pain M54.5 [place] [address] 45345- 9740 Apr, Moderate episode of recurrent major depressive disorder F33.1 [place] [address] 82392- 9572 Apr, Anxiety F41.9 [place] [address] 77236- 3798 Apr, Low back pain M54.5 [place] [address] 03775- 0388 15 Apr, 2016 Elevated alkaline phosphatase level R74.8 [place] [address] 98677- 4755 10 Apr, 2016 Alkaline phosphatase elevation R74.8 [place] [address] 38985- 6666 06 Apr, 2016 Anxiety F41.9 [place] [address] 03835- 5036 Apr, Low back pain M54.5 [place] [id number] [place] [address] 31785- 5628 Apr, Essential hypertension I10 ; History of weight loss surgery Z98.84 ; History of herpes genitalis Z86.19 ; Encounter for hepatitis C screening test for low risk patient Z11.59 ; Hyperlipidemia, unspecified E78.5 ; Benign prostatic hyperplasia, presence of lower urinary tract symptoms unspecified, unspecified morphology N40.0 and Exposure to STD Z20.2 [place] [id number] [place] [address] 41251- 7888 02 Apr, 2016 [place] [address] [address]- 6998 Mar, [facility] [address] [place] [address] 02096- 2485 Mar, [facility] [address] [address]- 5678 Mar, [facility] [address] [place] [address] 02531- 8835 Mar, Acute right-sided low back pain with right-sided sciatica M54.41 [place] [address] [place] [address] 52158- 1965 Mar, Low back pain M54.5 [facility] [address] [place] [address] 74464 -2933 13 Mar, 2016 Muscle strain of chest wall, initial encounter S29.011A ; Muscle strain of right thigh, initial encounter S76.911A and Acute non- recurrent maxillary sinusitis J01.00 [facility] [address] [place] [address] 36834- 0106 03 Mar, 2016 Benign prostatic hyperplasia, presence of lower urinary tract symptoms unspecified, unspecified morphology N40.0 [place] [address] [address]- 1014 23 Jan, 2016 Low back pain M54.5 [facility] [address] [place] [address] 69290- 1451 13 Jan, 2016 Low back pain M54.5 ; Essential hypertension I10 ; Hyperlipidemia, unspecified E78.5 ; Anxiety F41.9 ; Moderate episode of recurrent major depressive disorder F33.1 ; Primary insomnia F51.01 ; Exposure to STD Z20.2 ; Encounter for hepatitis C screening test for low risk patient Z11.59 and History of herpes genitalis Z86.19 [facility] [address] [address]- 4787 17 Jan, 2016 [facility] [id number] [place] [address] 61147- 4085 Nov, [facility] [id number] [place] [address] 62111- 7528 Nov, Anxiety F41.9 ; Cervicalgia M54.2 ; Moderate episode of recurrent major depressive disorder F33.1 and Encounter for immunization Z23 [facility] [id number] [place] [address] 09667- 7358 Oct, [facility] [address] 12162- 7801 Oct, [facility] [address] 71463- 3770 16 Nov, 2015 [facility] [address] 23781- 7682 Oct, [facility] [id number] [place] [address] 97200- 6766 Sep, [facility] [id number] [place] [address] 27668- 9044 Aug, Low back pain M54.5 ; Anxiety F41.9 ; Primary insomnia F51.01 and Chronic prescription opiate use Z79.899 [facility] [id number] [place] [address] 48362- 2501 Jul, [facility] [id number] [place] [address] 42731- 2815 Jul, [facility] [id number] [place] [address] 42830- 3185 Jul, [facility] [id number] [place] [address] 47322- 9663 Jul, [facility] [id number] [place] [address] 46496- 5347 Jul, [facility] [id number] [place] [address] 98793- 2794 June, [facility] [address] [address]- 7235 June, [facility] [id number] [place] [address] 18780- 2094 June, [facility] [id number] [place] [address] 84401- 1989 June, [facility] [id number] [place] [address] 99140- 1817 May, Preoperative cardiovascular examination Z01.810 [facility] [id number] [place] [address] 22413- 8491 May, [facility] [id number] [place] [address] 77809- 4985 Apr, [facility] [id number] [place] [address] 53998- 7959 Apr, Osteoarthritis of right knee M17.9 [facility] [id number] [place] [address] 23547- 7778 30 May, 2015 [facility] [id number] [place] [address] 65641- 1200 16 May, 2015 [facility] [id number] [place] [address] 09347- 7979 Apr, [facility] [id number] [place] [address] 78108- 8360 Apr, [facility] [id number] [place] [address] 35408- 6139 08 May, 2015 History of excessive cerumen Z78.9 ; Obstructive sleep apnea syndrome G47.33 ; History of diverticulitis Z87.19 and Nephrolithiasis N20.0 [facility] [address] [address]- 3041 Apr, [facility] [address] [place] [address] 80564 -7127 Apr, Abdominal pain R10.9 [facility] [id number] [place] [address] 56742- 7057 10 Apr, 2015 [facility] [address] 91250- 5977 04 Apr, 2015 Osteoarthritis of right knee M17.9 [facility] [address] 53077- 1679 Mar, [facility] [address] 12755- 0116 Mar, [facility] [address] 02664- 1713 Mar, [place] [address] 84886- 5467 Mar, [facility] [address] 17163 -0710 Mar, Pyelonephritis N12 ; Left-sided thoracic back pain M54.6 ; Hematuria, unspecified R31.9 and Kidney stone N20.0 [place] [address] 80242- 9014 Mar, History of weight loss surgery Z98.84 [place] [id number] [place] [address] 14137- 7358 Mar, History of weight loss surgery Z98.84 and Hyperlipidemia, unspecified E78.5 [place] [id number] [place] [address] 79022- 4609 Mar, Low back pain M54.5 ; Chronic prescription opiate use Z79.899 ; Hyperlipidemia, unspecified E78.5 ; Spasm of back muscles M62.830 and History of weight loss surgery Z98.84 [facility] [id number] [place] [address] 79530- 8026 Jan, [place] [address] 70399- 9369 Jan, [facility] [address] [address]- 34[address] Jan, [facility] [address] 0574 Dec, [facility] [address] 5398 Dec, [facility] [id number] [place] [address] 335463- 2066 Dec, [facility] [address] [place] [address] 468119- 8479 Nov, [facility] [address] [place] [address] 85446- 7470 Nov, Obstructive sleep apnea syndrome G47.33 and Pharyngoesophageal dysphagia R13.14 [facility] [id number] [place] [address] 01817- 2897 Nov, [facility] [address] [place] [address] 89924- 4932 Nov, [facility] [address] [place] [address] 65820- 8390 Nov, [facility] [address] [address] 30 Oct, 2014 Dental examination V72.2 [facility] [address], [place] [address]- 7849 Oct, [facility] [address] [address]- 0448 Oct, [facility] [id number] [place] [address] 30030- 7227 23 Oct, 2014 [facility] [address]- 0499 17 Oct, 2014 [facility] [address] [place] [address] 99398- 7868 Oct, BPH (benign prostatic hyperplasia) 600.00 and Urinary frequency 788.41 [facility] [id number] [place] [address] 15763- 6655 Oct, [facility] [id number] [place] [address] 61564- 0904 Oct, [facility] [id number] [place] [address] 86481- 8117 Oct, [facility] [id number] [place] [address] 81074- 5278 Sep, Cerumen impaction 380.4 ; Cerumen debris on tympanic membrane 380.4 ; Psoriasis 696.1 and MICKY (secretory otitis media) 381.4 [facility] [id number] [place] [address] [id number] Sep, Dental examination V72.2 [facility] [id number] [place] [address] 89816- 3245 Sep, Fatigue 780.79 ; Irritable bowel syndrome 564.1 ; Overweight 278.02 ; Poor sleep V69.4 ; Shaking spells 781.0 and Broken tooth 873.63 [facility] [address] [place] [address] 53511- 7111 Sep, [facility] [address] [place] [address] 12958- 4692 Sep, [facility] [id number] [place] [address] 37722- 9434 Aug, [facility] [address] [place] [address] 34753- 7441 Jul, [facility] [id number] [place] [address] 10512- 0231 Jul, [facility] [address] [place] [address] 45946- 3830 Jul, [facility] [id number] [place] [address]- 1586 Jul, [facility] [address] [id number] [place] [address]- 8423 June, Arthritis of knee, right 716.96 [facility] [address] [id number] [place] [address]- 9446 June, [facility] [address] [id number] [place] [address]- 8918 June, Elevated blood pressure reading without diagnosis of hypertension 796.2 [facility] [address] [id number] [place] [address]- 4689 June, [facility] [address] [id number] [place] [address]- 8871 June, [facility] [id number] [place] [address]- 4706 June, [facility] [address] [id number] [place] [address]- 1412 June, [facility] [address] [id number] [place] [address]- 1641 May, [facility] [address] [id number] [place] [address]- 5796 May, [facility] [address] [id number] [place] [address]- 6703 Apr, [facility] [address] [id number] [place] [address]- 8520 Apr, [facility] [address] [id number] [place] [address]- 1150 Apr, [facility] [address] [id number] [place] [address]- 7211 Apr, [facility] [address] [id number] [place] [address]- 5828 Apr, [facility] [address] [id number] [place] [address]- 0534 Apr, 2014 [facility] [place] [facility] [address] [id number] [place] [address]- 3534 Apr, 2014 [facility] [place] [facility] [address] [id number] [place] [address]- 8467 Apr, 2014 [facility] [place] [facility] [address] [id number] [place] [address]- 2050 Apr, 2014 [facility] [place] [facility] [address] [id number] [place] [address] Apr, 2014 [facility] [place] [facility] [address] [id number] [place] [address] Apr, 2014 [facility] [place] [facility] [address] [facility] [id number] [place] [address] Apr, 2014 [facility] [place] [facility] [address] [facility] [id number] [place] [address] Apr, 2014 [facility] [place] [facility] [address] [id number] [place] [address] Apr, 2014 [facility] [place] [facility] [address] [facility] [id number] [place] [address] Apr, 2014 [facility] [place] [facility] [address] [facility] [id number] [place] [address] Apr, 2014 [facility] [place] [facility] [address] [facility] [id number] [address] Apr, 2014 [facility] [place] [facility] [address] [facility] [id number] [place] [address] Apr, 2014 [facility] [place] [facility] [address] [facility] [id number] [place] [address] Apr, 2014 [facility] [place] [facility] [address] [facility] [id number] [place] [address] Apr, 2014 [facility] [place] [facility] [address] [facility] [id number] [place] [address] Apr, 2014 [facility] [place] [facility] [address] [id number] [place] [address] Apr, 2014 [facility] [place] [facility] [address] [id number] [place] [address] Apr, 2014 [facility] [place] [facility] [address] [facility] [id number] [place] [address] Apr, 2014 [facility] [place] [facility] [address] [id number] [place] [address] Apr, 2014 [facility] [place] [facility] [address] [id number] [place] [address] Apr, 2014 [facility] [place] [facility] [address] [facility] [id number] [place] [address] Apr, 2014 [facility] [place] [facility] [address] [id number] [place] [address] Apr, 2014 [facility] [place] [facility] [address] [facility] [id number] [place] [address] Apr, 2014 [facility] [place] [facility] [address] [facility] [id number] [place] [address] Apr, 2014 [facility] [place] [facility] [address] [facility] [id number] [place] [address] 6258 Apr, 2014 [facility] [place] [facility] [address] [facility] [id number] [place] [address] 2540 Apr, 2014 [facility] [place] [facility] [address] [facility] [id number] [place] [address]- 2542 Apr, 2014 [facility] [place] [facility] [address] [facility] [id number] [place] [address]- 8526 Mar, [facility] [place] [facility] [address] [facility] [id number] [place] [address]- 7160 Mar, [facility] [place] [facility] [address] [facility] [id number] [place] [address]- 7689 Mar, [facility] [place] [facility] [address] [id number] [place] [address]- 5142 Mar, [facility] [place] [facility] [address] [id number] [place] [address]- 2784 Mar, [facility] [place] [facility] [address] [id number] [place] [address]- 2177 Mar, [facility] [place] [facility] [address] [id number] [place] [address]- 7414 Mar, [facility] [place] [facility] [address] [id number] [place] [address]- 9859 Mar, [facility] [place] [facility] [address] [id number] [place] [address]- 2430 Mar, [facility] [place] [facility] [address] [id number] [place] [address]- 6229 Mar, [facility] [place] [facility] [address] [id number] [place] [address]- 6523 Jan, [facility] [place] [facility] [address] [id number] [place] [address]- 4472 Jan, [facility] [place] [facility] [address] [id number] [place] [address]- 9002 Jan, [facility] [place] [facility] [address] [id number] [address] 25[address] Jan, [facility] [place] [facility] [address] [id number] [address] 5[address] Jan, [facility] [place] [facility] [address] [id number] [place] [address]- 3104 Jan, [facility] [place] [facility] [address] [id number] [place] [address]- 3009 Jan, [facility] [place] [facility] [address] [id number] [place] [address]- 6426 Jan, [facility] [place] [facility] [address] [id number] [place] [address]- 4124 05 Jan, 2014 [facility] [place] [facility] [address] [id number] [place] [address]- 3792 05 Jan, 2014 [facility] [place] [facility] [address] [id number] [place] [address]- 9278 Jan, [facility] [place] [facility] [address] [id number] [place] [address]- 4273 Jan, [facility] [place] [facility] [address] [id number] [place] [address]- 2833 Dec, [facility] [place] [facility] [address] [id number] [place] [address]- 0293 Dec, [facility] [place] [facility] [address] [id number] [place] [address]- 3495 Dec, [facility] [place] [facility] [address] [id number] [place] [address]- 6787 Dec, [facility] [place] [facility] [address] [id number] [place] [address]- 4233 Dec, [facility] [place] [facility] [address] [id number] [place] [address]- 2017 Dec, [facility] [place] [facility] [address] [facility] [id number] [place] [address]- 3910 Dec, [facility] [place] [facility] [address] [id number] [place] [address]- 7505 Dec, [facility] [place] [facility] [address] [id number] [place] [address]- 0696 Dec, [facility] [place] [facility] [address] [id number] [place] [address]- 3117 Dec, [facility] [place] [facility] [address] [id number] [place] [address]- 0016 Nov, [facility] [place] [facility] [address] [id number] [place] [address]- 3619 Nov, [facility] [place] [facility] [address] [id number] [place] [address]- 0498 Nov, 2013 [facility] [place] [facility] [address] [id number] [place] [address]- 0079 Nov, [facility] [place] [facility] [address] [id number] [place] [address]- 2085 Nov, [facility] [place] [facility] [address] [id number] [place] [address]- 3920 Nov, [facility] [place] [facility] [address] [id number] [place] [address]- 3689 Nov, [facility] [place] [facility] [address] [id number] [place] [address]- 0384 Nov, [facility] [place] [facility] [address] [id number] [place] [address]- 4357 Nov, [facility] [place] [facility] [address] [id number] [place] [address]- 3446 Nov, [facility] [place] [facility] [address] [id number] [place] [address]- 3591 Nov, [facility] [place] [facility] [address] [id number] [place] [address]- 0655 17 Nov, 2013 [facility] [place] [facility] [address] [id number] [place] [address]- 9311 14 Nov, 2013 [facility] [place] [facility] [address] [id number] [place] [address]- 2965 14 Nov, 2013 [facility] [place] [facility] [address] [id number] [place] [address]- 5415 10 Nov, 2013 [facility] [place] [facility] [address] [id number] [place] [address]- 3548 10 Nov, 2013 [facility] [place] [facility] [address] [id number] [place] [address]- 9127 08 Nov, 2013 [facility] [place] [facility] [address] [id number] [address] 6740 Nov, [facility] [place] [facility] [address] [id number] [place] [address]- 3251 Nov, [facility] [place] [facility] [address] [id number] [place] [address]- 4444 Nov, [facility] [place] [facility] [address] [id number] [place] [address]- 4069 Oct, [facility] [place] [facility] [address] [id number] [place] [address]- 4450 Oct, [facility] [place] [facility] [address] [id number] [place] [address]- 9701 Oct, [facility] [place] [facility] [address] [id number] [place] [address]- 9291 Oct, [facility] [place] [facility] [address] [id number] [place] [address]- 9629 Oct, [facility] [place] [facility] [address] [id number] [place] [address]- 0850 Oct, [facility] [place] [facility] [address] [id number] [place] [address]- 5111 Oct, [facility] [place] [facility] [address] [id number] [place] [address]- 6381 Oct, [facility] [place] [facility] [address] [id number] [place] [address]- 9588 Oct, [facility] [place] [facility] [address] [id number] [place] [address]- 2938 Oct, [facility] [place] [facility] [address] [id number] [place] [address]- 2829 Sep, [facility] [place] [facility] [address] [id number] [place] [address]- 7766 Sep, [facility] [place] [facility] [address] [id number] [place] [address]- 3625 Sep, [facility] [place] [facility] [address] [id number] [place] [address]- 3007 Sep, [facility] [place] [facility] [address] [id number] [place] [address]- 2417 Sep, [facility] [place] [facility] [address] [id number] [place] [address]- 1509 Sep, [facility] [place] [facility] [address] [id number] [place] [address]- 0566 Sep, [facility] [place] [facility] [address] [id number] [place] [address]- 3524 Sep, [facility] [place] [facility] [address] [id number] [place] [address]- 7155 Sep, [facility] [place] [facility] [address] [id number] [place] [address]- 9230 Sep, [facility] [place] [facility] [address] [id number] [place] [address]- 6764 Sep, [facility] [place] [facility] [address] [id number] [place] [address]- 8126 Sep, [facility] [place] [facility] [address] [id number] [place] [address]- 4944 Sep, [facility] [place] [facility] [address] [id number] [place] [address]- 2548 Sep, [facility] [place] [facility] [address] [id number] [place] [address]- 7791 Sep, [facility] [place] [facility] [address] [id number] [place] [address]- 7824 Sep, [facility] [place] [facility] [address] [id number] [place] [address]- 5941 Sep, [facility] [place] [facility] [address] [id number] [place] [address]- 0940 Sep, [facility] [place] [facility] [address] [id number] [place] [address]- 7441 Sep, [facility] [place] [facility] [address] [id number] [place] [address]- 7498 Sep, [facility] [place] [facility] [address] [id number] [place] [address]- 9114 Sep, [facility] [place] [facility] [address] [id number] [place] [address]- 8421 Sep, [facility] [place] [facility] [address] [id number] [place] [address]- 3918 Sep, [facility] [place] [facility] [address] [id number] [place] [address]- 5457 Sep, [facility] [place] [facility] [address] [id number] [place] [address]- 9571 Sep, [facility] [place] [facility] [address] [id number] [place] [address]- 6543 Aug, [facility] [place] [facility] [address] [id number] [place] [address]- 1023 Aug, [facility] [place] [facility] [address] [id number] [place] [address]- 7055 Aug, [facility] [place] [facility] [address] [id number] [place] [address]- 0688 Aug, [facility] [place] [facility] [address] [id number] [place] [address]- 8802 Aug, [facility] [place] [facility] [address] [id number] [place] [address]- 8847 Aug, [facility] [place] [facility] [address] [id number] [place] [address]- 3300 Aug, [facility] [place] [facility] [address] [id number] [place] [address]- 8664 Aug, [facility] [place] [facility] [address] [id number] [place] [address]- 3785 Aug, [facility] [place] [facility] [address] [id number] [place] [address]- 0005 Aug, [facility] [place] [facility] [address] [id number] [place] [address]- 5796 Aug, [facility] [place] [facility] [address] [id number] [place] [address]- 5141 Aug, [facility] [place] [facility] [address] [id number] [place] [address]- 0026 Aug, [facility] [place] [facility] [address] [id number] [place] [address]- 4116 Jul, [facility] [place] [facility] [address] [id number] [place] [address]- 2016 Jul, [facility] [place] [facility] [address] [id number] [place] [address]- 3485 Jul, [facility] [place] [facility] [address] [id number] [place] [address]- 2092 Jul, [facility] [place] [facility] [address] [id number] [place] [address]- 0718 Jul, [facility] [place] [facility] [address] [id number] [place] [address]- 3110 Jul, [facility] [place] [facility] [address] [id number] [place] [address]- 3713 Jul, [facility] [place] [facility] [address] [id number] [place] [address]- 1068 June, [facility] [place] [facility] [address] [id number] [place] [address]- 5354 June, [facility] [place] [facility] [address] [id number] [place] [address]- 0344 June, [facility] [place] [facility] [address] [id number] [place] [address]- 1619 June, [facility] [place] [facility] [address] [id number] [place] [address]- 3036 May, [facility] [place] [facility] [address] [id number] [place] [address]- 0678 May, [facility] [place] [facility] [address] [id number] [place] [address]- 1498 May, [facility] [place] [facility] [address] [id number] [place] [address]- 0406 May, [facility] [place] [facility] [address] [id number] [place] [address]- 5138 May, [facility] [place] [facility] [address] [id number] [place] [address]- 5177 May, [facility] [place] [facility] [address] [id number] [place] [address]- 6980 May, [facility] [place] [facility] [address] [id number] [place] [address]- 9399 May, [facility] [place] [facility] [address] [id number] [place] [address]- 2866 May, [facility] [place] [facility] [address] [id number] [place] [address]- 6734 May, [facility] [place] [facility] [address] [id number] [place] [address]- 5805 Apr, [facility] [place] [facility] [address] [id number] [place] [address]- 1765 Apr, [facility] [place] [facility] [address] [id number] [place] [address]- 3142 Apr, [facility] [place] [facility] [address] [id number] [place] [address]- 2164 Apr, [facility] [place] [facility] [address] [id number] [place] [address]- 5106 Apr, [facility] [place] [facility] [address] [id number] [place] Apr, [facility] [place] [facility] [address] [id number] [place] [address]- 0699 Apr, [facility] [address] [id number] [place] [address]- 0416 Apr, [facility] [place] [facility] [address] [id number] [place] [address]- 0888 Apr, [facility] [place] [facility] [address] [id number] [place] [address]- 3016 Apr, [facility] [place] [facility] [address] [id number] [place] [address]- 9813 Mar, [facility] [place] [facility] [address] [id number] [place] [address]- 2824 Mar, [facility] [address] [id number] [place] [address]- 5031 Mar, [facility] [address] [id number] [place] [address]- 9181 Mar, [facility] [place] [facility] [address] [id number] [place] [address]- 5210 Mar, [facility] [address] [id number] [place] [address]- 2744 Mar, [facility] [place] [facility] [address] [facility] [id number] [place] [address]- 5785 Jan, [facility] [place] [facility] [address] [id number] [place] [address]- 5693 Jan, [facility] [place] [facility] [address] [id number], [place] [address]- 6008 Jan, [facility] [place] [facility] [address] [id number] [place] [address]- 6944 Jan, [facility] [place] [facility] [address] [id number] [place] [address]- 5795 Jan, [facility] [place] [facility] [address] [id number] [place] [address]- 3666 Jan, [facility] [place] [facility] [address] [id number] [place] [address]- 6645 Jan, [facility] [address] [id number] [place] [address]- 8035 Jan, [facility] [place] [facility] [address] [id number] [place] 4480 Jan, [facility] [place] [facility] [address] [id number] [place] [address]- 9085 Dec, [facility] [place] [facility] [address] [id number] [place] [address]- 1609 Dec, [facility] [place] [facility] [address] [id number] [place] [address]- 1346 Dec, [facility] [place] [facility] [address] [id number] [place] [address]- 0115 Dec, [facility] [place] [facility] [address] [id number] [place] [address]- 9716 Dec, [facility] [address] [id number] [place] [address]- 3892 Dec, [facility] [place] [facility] [address] [id number] [place] [address]- 1648 Dec, [facility] [place] [facility] [address] [facility] [id number] [place] [address]- 5614 Dec, [facility] [place] [facility] [address] [id number] [place] [address]- 6354 Dec, [facility] [place] [facility] [address] [id number] [place] [address]- 0888 Dec, [facility] [place] [facility] [address] [id number] [place] [address]- 3486 Dec, [facility] [place] [facility] [address] [id number] [place] [address]- 7414 Nov, [facility] [place] [facility] [address] [id number] [place] [address]- 2323 Nov, [facility] [address] [id number] [place] [address]- 4906 Nov, [facility] [place] [facility] [address] [id number] [place] [address]- 7728 Nov, [facility] [place] [facility] [address] [id number] [place] [address]- 2414 Nov, [facility] [place] [facility] [address] [id number] [place] [address]- 8125 Oct, [facility] [place] [facility] [address] [id number] [place] [address]- 0489 Oct, [facility] [place] [facility] [address] [id number] [place] [address]- 6885 Sep, [facility] [place] [facility] [address] [id number] [place] [address]- 9216 Aug, [facility] [place] [facility] [address] [id number] [place] [address]- 6321 Aug, [facility] [place] [facility] [address] [id number] [place] [address]- 4628 Aug, [facility] [place] [facility] [address] [id number], [place] [address]- 6645 Aug, [facility] [place] [facility] [address] [id number] [place] [address]- 7299 Jul, [facility] [place] [facility] [address] [id number], [place] [address]- 1932 Jul, [facility] [place] [facility] [address] [id number] [place] [address]- 8650 June, [facility] [place] [facility] [address] [id number] [place] [address]- 8315 June, [facility] [place] [facility] [address] [id number] [place] [address]- 7523 June, [facility] [place] [facility] [address] [id number] [place] [address]- 8949 08 May, 2012 [facility] [address] [id number] [place] [address]- 0953 04 May, 2012 [facility] [place] [facility] [address] [facility] [id number] [place] [address]- 3393 May, [facility] [address] [facility] [id number] [place] [address]- 9355 18 Apr, 2012 [facility] [place] [facility] [address] [facility] [id number] [place] [address]- 5103 18 Apr, 2012 [facility] [address] [id number] [place] [address]- 6325 15 Apr, 2012 [facility] [place] [facility] [address] [facility] [id number] [place] [address]- 6929 14 Apr, 2012 [facility] [address] [id number] [place] [address]- 6117 12 Apr, 2012 [facility] [place] [facility] [address] [facility] [id number] [place] [address]- 0461 27 Apr, 2012 [facility] [place] [facility] [id number] [place] [address]- 8170 25 Apr, 2012 [facility] [place] [facility] [address] [id number] [place] [address] 25 Apr, 2012 [facility] [place] [facility] [id number] [place] [address] 21 Apr, 2012 [facility] [place] [facility] [address] [facility] [id number] [place] [address] 20 Apr, 2012 [facility] [place] [facility] [address] [facility] [id number] [place] [address] 19 Apr, 2012 [facility] [place] [facility] [address] [facility] [id number] [place] [address] 4436 07 Apr, 2012 [facility] [place] [facility] [id number] [place] [address] 07 Apr, 2012 [facility] [address] [id number] [place] [address] Mar, [facility] [place] [facility] [address] [id number] [place] [address] Mar, [facility] [address] [id number] [place] [address] 139[address] Mar, [facility] [place] [facility] [address] [id number] [place] [address] 6[address] Mar, [facility] [address] [id number] [place] [address] Mar, [facility] [address] [id number] [place] [address] Jan, [facility] [address] [id number] [place] [address] 37[address] Jan, [facility] [address] [id number] [place] [address] 99[address] Jan, [facility] [address] [id number] [place] [address] 9758 Jan, [facility] [address] [id number] [place] [address] 6672 14 Jan, 2012 [facility] [place] [facility] [address] [id number] [place] [address]- 5460 Jan, [facility] [place] [facility] [address] [id number] [place] [address] 4091 13 Jan, 2012 [facility] [place] [facility] [address] [id number] [place] [address]- 5582 11 Jan, 2012 [facility] [place] [facility] [address] [id number] [place] [address]- 6456 06 Jan, 2012 [facility] [place] [facility] [address] [id number] [place] [address] 8827 06 Jan, 2012 [facility] [place] [facility] [address] [id number] [place] [address] 04 Jan, 2012 [facility] [place] [facility] [address] [id number] [place] [address]- 5984 04 Jan, 2012 [facility] [place] [facility] [address] [id number] [place] [address] 1662 Jan, [facility] [place] [facility] [address] [id number] [place] [address] 2889 Jan, [facility] [place] [facility] [address] [id number] [place] [address] 8815 26 Jan, 2012 [facility] [place] [facility] [address] [id number] [place] [address] 9499 26 Jan, 2012 [facility] [place] [facility] [address] [id number] [place] [address] 5695 Dec, [facility] [place] [facility] [address] [id number] [place] [address]- 1635 19 Jan, 2012 [facility] [place] [facility] [address] [id number] [place] [address] 8447 15 Jan, 2012 [facility] [place] [facility] [address] [id number] [place] [address]- 4639 15 Jan, 2012 [facility] [place] [facility] [address] [facility] [id number] [place] [address] 9132 14 Jan, 2012 [facility] [place] [facility] [address] [id number] [place] [address] 5179 14 Jan, 2012 [facility] [place] [facility] [address] [id number] [address] 14 Jan, 2012 [facility] [place] [facility] [address] [id number] [place] [address]- 0487 14 Jan, 2012 [facility] [place] [facility] [address] [id number] [place] [address] 9108 07 Jan, 2012 [facility] [place] [facility] [address] [facility] [id number] [address] 07 Jan, 2012 [facility] [place] [facility] [address] [id number] [place] [address]- 7383 16 Dec, 2011 [facility] [place] [facility] [address] [id number] [place] [address]- 9924 16 Dec, 2011 [facility] [place] [facility] [address] [id number] [place] [address]- 5486 13 Nov, 2011 [facility] [place] [facility] [address] [id number] [place] [address]- 3806 13 Nov, 2011 [facility] [place] [facility] [address] [id number] [place] [address] 3096 13 Nov, 2011 [facility] [place] [facility] [address] [id number] [place] [address] 0779 Oct, [facility] [place] [facility] [address] [id number] [place] [address] 6967 Sep, [facility] [place] [facility] [address] [id number] [place] [address]- 1824 Sep, [facility] [place] [facility] [address] [id number] [place] [address]- 68[address] Aug, [facility] [place] [facility] [address] [id number] [place] [address]- 3886 Aug, [facility] [facility] [address] [id number] [place] [address]- 5042 Aug, [facility] [place] [facility] [address] [id number] [place] [address]- 8432 Aug, [facility] [place] [facility] [address] [id number] [place] [address] June, [facility] [place] [facility] [address] [id number] [place] [address]- 3[address] June, [facility] [place] [facility] [address] [id number] [place] [address] 6563 May, [facility] [place] [facility] [address] [id number] [place] [address]- 3072 Apr, [facility] [address] [id number] [place] [address]- 3270 Apr, [facility] [place] [facility] [address] [id number] [place] [address]- 1246 Apr, [facility] [place] [facility] [address] [id number] [place] [address]- 7031 Apr, [facility] [place] [facility] [address] [id number] [place] [address]- 8653 Apr, [facility] [place] [facility] [address] [id number] [place] [address]- 2275 Apr, [facility] [place] [facility] [address] [id number] [place] [address]- 9559 Mar, [facility] [place] [facility] [address] [id number] [place] [address]- 4571 Mar, [facility] [place] [facility] [address] [id number] [place] [address]- 1457 Mar, [facility] [place] [facility] [address] [id number] [place] [address]- 0225 Jan, [facility] [place] [facility] [address] [id number] [place] [address]- 6122 Jan, [facility] [place] [facility] [address] [id number] [place] [address]- 5478 Jan, [facility] [place] [facility] [address] [id number] [place] [address]- 1861 Jan, [facility] [place] [facility] [address] [id number] [place] [address]- 5583 Jan, [facility] [place] [facility] [address] [id number] [place] [address] Jan, [facility] [place] [facility] [address] [id number] [place] [address]- 0261 Jan, [facility] [place] [facility] [address] [id number] [place] [address]- 5961 Dec, [facility] [place] [facility] [address] [id number] [place] [address]- 5512 Dec, [facility] [place] [facility] [address] [id number] [place] [address]- 7200 Nov, [facility] [place] [facility] [address] [id number] [place] [place] [address] Nov, [facility] [place] [facility] [address] [id number] [place] [address] Nov, [facility] [place] [facility] [address] [id number] [place] [address], [place] [address] Nov, [facility] [place] [facility] [address] [id number] [place] [address] Oct, [facility] [place] [facility] [address] [id number] [place] [address] Sep, [facility] [place] [facility] [address] [id number] [place] [address] Mar, [facility] [place] [facility] [address] [id number] [place] [address] Jan, [facility] [place] [facility] [address] [id number] [place] [address] Dec, [facility] [place] [facility] [address] [id number] [place] [address] Dec, [facility] [place] [facility] [address] [id number] [place] [address] Dec, [facility] [place] [facility] [address] [id number] [place] [address] Dec, [facility] [place] [facility] [address] [id number] [place] [address] Nov, [facility] [place] [facility] [address] [id number] [place] [address] 15 Nov, 2009 [facility] [address] [id number] [place] [address] 14 Nov, 2009 [facility] [place] [facility] [address] [id number] [place] [address] 14 Nov, 2009 [facility] [place] [facility] [address] [id number] [place] [address] 13 Oct, 2009 [facility] [place] [facility] [address] [id number] [place] [address] 17 Jul, 2009 [facility] [place] [facility] [address] [id number] [place] [address] June, [facility] [place] [facility] [address] [id number] [place] [address] June, [facility] [place] [facility] [address] [id number] [place] [address] 17 Apr, 2009 [facility] [place] [facility] [address] [id number] [address] Mar, [facility] [place] [facility] [address] [id number] [place] [address] 24 Jan, 2009 [facility] [place] [facility] [address] [id number] [address] Jan, [facility] [place] [facility] [address] [id number] [address] 27 Dec, 2008 [facility] [place] [facility] [address] [id number] [address] 25 Dec, 2008 [facility] [place] [facility] [address] [id number] [place] [address] 13 Dec, 2008 [facility] [place] [facility] [address] [id number] [address] 13 Dec, 2008 [facility] [place] [facility] [address] [id number] [place] [address] 30 Nov, 2008 [facility] [place] [facility] [address] [id number] [place] [id number] Jul, [facility] [address] [facility] [id number] [place] [id number] June, IMMUNIZATIONS No Known Immunizations SOCIAL HISTORY Never Assessed REASON FOR VISIT Refill request PLAN OF CARE VITAL SIGNS MEDICATIONS Medication Instructions Dosage Frequency Start Date End Date Duration Status Tizanidine HCl 4 MG Orally 3-4 times daily 1 tablet as needed Apr, Active Omeprazole 20 mg Orally 2 times a day 1 capsule 12h 90 days Active RESULTS No Results PROCEDURES No Known procedures INSTRUCTIONS MEDICATIONS ADMINISTERED No Known Medications MEDICAL (GENERAL) HISTORY Type Description Date Medical History hypertension Medical History sleep apnea-did not tolerate CPAP Medical History oxygen dependent at [facility] Medical History colonic polyps Medical History [...]
--- OUTSIDE RECORDS SUMMARY | 2018-02-26 19:15 | XMS REPORT ---
Author Author GRAHAM CHRIS [facility] Address [address] [place] [address] Care Team Providers Care Developer Programmer Analyst Name Role Phone GRAHAMLIBBY HANNAY Unavailable PROBLEMS Type Condition ICD9-CM Code XHM91-DB Code Onset Dates Condition Status SNOMED Code Problem Pulmonary asbestosis J61 Active 09931742 Problem Left ventricular diastolic dysfunction I51.9 Active 635135230 Problem Chronic gout, unspecified cause, unspecified site M1A.9XX0 Active 28858704 Problem Renal cyst, left N28.1 Active 79685859 Problem History of weight loss surgery Z98.84 Active 909024154 Problem Nocturnal hypoxia G47.34 Active 561568511 Problem Obstructive sleep apnea syndrome G47.33 Active 86988612 Problem History of diverticulitis Z87.19 Active 624856669465415 Problem Allergic rhinitis, unspecified allergic rhinitis type J30.9 Active 97062448 Problem Erectile dysfunction due to diseases classified elsewhere N52.1 Active 525137659 Problem Acute right-sided low back pain with right-sided sciatica M54.41 Active 594392447 Problem Psoriasis L40.9 Active 8748030 Problem Essential hypertension I10 Active 89343310 Problem Nephrolithiasis N20.0 Active 30488193 Problem Chronic prescription opiate use Z79.899 Active 749291775 Problem 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 Active 03164185 Problem Benign prostatic hyperplasia, presence of lower urinary tract symptoms unspecified, unspecified morphology N40.0 Active 394593912 Problem Moderate episode of recurrent major depressive disorder F33.1 Active 966632693 Problem Age-related osteoporosis without current pathological fracture M81.0 Active 44246216 Problem Low back pain M54.5 Active 897902315 Problem Anxiety F41.9 Active 06353693 Problem Urge incontinence N39.41 Active 235823927 Problem Hyperlipidemia, unspecified E78.5 Active 44059203 Problem Esophageal stricture K22.2 Active 41641345 Problem Cervicalgia M54.2 Active 0480415581359 Problem Primary insomnia F51.01 Active [id number] ALLERGIES No Information ENCOUNTERS Encounter Location Date Diagnosis [facility] [address] [address] Aug, [facility] [id number] [place] [address] 44657- 4307 Jul, [facility] [address] 26219- [address]01 Jul, [address]9 [facility] [address] 38396- 1072 June, [address]9 [facility] [address] 88702- [address] June, [facility] [address] 46073- 2633 June, Low back pain M54.5 ; Chronic prescription opiate use Z79.899 ; Candidal intertrigo B37.2 ; Urge incontinence N39.41 ; Essential hypertension I10 ; Moderate episode of recurrent major depressive disorder F33.1 ; Age-related osteoporosis without current pathological fracture M81.0 and BMI 45.0-49.9, adult Z68.42 [facility] [id number] [place] [address] 19945- 9039 June, [facility] [id number] [place] [address] 89460- 6175 May, Anxiety F41.9 [facility] [id number] [place] [address] 48541- 1745 May, [facility] [address] 45454- 4846 May, [facility] [id number] [place] [address] 10830- 2880 Apr, [address]41.9 [facility] [address] 80269- 0660 Apr, [facility] [id number] [place] [address] 33369- 3635 Apr, Low back pain M54.5 [facility] [id number] [place] [address] 86695- 9533 Apr, [facility] [id number] [place] [address] 34467- 2384 Apr, [facility] [id number] [place] [address] 97503- 1740 Apr, Anxiety F41.9 [facility] [id number] [place] [address] 32795- 5389 Apr, Right groin pain R10.31 [facility] [id number] [place] [address] 38311- 1571 Mar, [facility] [id number] [place] [address] 16666- 6944 Mar, [facility] [id number] [place] [address] 71698- 0455 Mar, Anxiety F41.9 [facility] [id number] [place] [address] 88855- 3102 Mar, Low back pain M54.5 [facility] [id number] [place] [address] 60936- 8912 Mar, Right groin pain R10.31 ; Low back pain M54.5 and BMI 45.0- 49.9, adult Z68.42 [facility] [id number] [place] [address] 96859- 1544 Mar, [facility] [id number] [place] [address] 28452- 7009 Mar, [facility] [address] [address]- 0397 Mar, [facility] [id number] [place] [address] 66224 -1738 Mar, [facility] [id number] [place] [address] 27971 -3914 Mar, Cough R05 ; Pneumonia of right lower lobe due to infectious organism J18.1 and Abnormal chest x-ray R93.8 [place] [address] 13401- 9170 Mar, [facility] [address] 93449- 7003 Mar, [place] [address] 72650- 9383 Jan, Anxiety F41.9 [place] [address] 11014- 5909 Jan, [place] [address] 41474- 9485 Jan, Moderate episode of recurrent major depressive disorder F33.1 [place] [address] 75145- 4236 Jan, Subacromial bursitis of right shoulder joint M75.51 ; Shortness of breath on exertion R06.02 and BMI 45.0-49.9, adult Z68.42 [facility] [id number] [place] [address] 87186- 2116 Dec, Anxiety F41.9 [facility] [id number] [place] [address] 04173- 5398 Dec, [place] [facility] [address] 75312- 2137 Dec, Low back pain M54.5 [facility] [id number] [place] [address] 63311- 2895 Oct, Low back pain M54.5 [place] [address] 77804- 6020 Sep, [facility] [address] [address]- 6997 Sep, Erectile dysfunction due to diseases classified elsewhere N52.1 [facility] [id number] [place] [address] 66245- 7296 Sep, Erectile dysfunction due to diseases classified elsewhere N52.1 [facility] [id number] [place] [address] 30276- 5409 Sep, [facility] [id number] [place] [address] 14775- 2418 Sep, Erectile dysfunction due to diseases classified elsewhere N52.1 [facility] [id number] [place] [address] 05133- 1358 Sep, Low back pain M54.5 and Anxiety F41.9 [facility] [id number] [place] [address] 42241 -6543 Aug, Acute allergic rhinitis J30.9 [facility] [id number] [place] [address] 52045- 5979 Aug, [facility] [id number] [place] [address] 76534- 3228 Aug, [address] F41.9 [facility] [id number] [place] [address] 29220- 6153 Jul, Low back pain M54.5 ; Chronic prescription opiate use Z79.899 and Essential hypertension I10 [facility] [id number] [place] [address] 00069- 6810 Jul, Anxiety F41.9 and Low back pain M54.5 [facility] [id number] [place] [address] 99081- 1403 June, [facility] [id number] [place] [address] 86137- 9509 June, Anxiety F41.9 [facility] [address] [address]- 8692 May, Low back pain M54.5 [facility] [id number] [place] [address] 74327- 3496 May, [facility] [id number] [place] [address] 46579- 2106 May, Anxiety F41.9 [facility] [id number] [place] [address] 75359- 1007 Apr, [facility] [id number] [place] [address] 32216- 6152 Apr, Low back pain M54.5 [facility] [id number] [place] [address] 88284- 2246 Apr, Moderate episode of recurrent major depressive disorder F33.1 [facility] [id number] [place] [address] 18702- 6427 Apr, Anxiety F41.9 [facility] [id number] [place] [address] 56688- 6107 Apr, Low back pain M54.5 [facility] [id number] [place] [address] 81021- 7833 15 Apr, 2016 Elevated alkaline phosphatase level R74.8 [facility] [id number] [place] [address] 43978- 3406 10 Apr, 2016 Alkaline phosphatase elevation R74.8 [facility] [id number] [place] [address] 58112- 2546 Apr, Anxiety F41.9 [facility] [id number] [place] [address] 36125 2546 Apr, Low back pain M54.5 [facility] [id number] [place] [address] 00560- 6066 Apr, Essential hypertension I10 ; History of weight loss surgery Z98.84 ; History of herpes genitalis Z86.19 ; Encounter for hepatitis C screening test for low risk patient Z11.59 ; Hyperlipidemia, unspecified E78.5 ; Benign prostatic hyperplasia, presence of lower urinary tract symptoms unspecified, unspecified morphology N40.0 and Exposure to STD Z20.2 [place] [id number] [place] [address] 57376- 2474 02 Apr, 2016 [place] [address] 92751- 8543 Mar, [place] [id number] [place] [address] 87456- 5747 Mar, [place] [address] 97504- 6474 Mar, [place] [id number] [place] [address] 10025- 8092 Mar, Acute right-sided low back pain with right-sided sciatica M54.41 [place] [id number] [place] [address] 75652- 8640 Mar, Low back pain M54.5 [facility] [id number] [place] [address] 91769 -7772 Mar, Muscle strain of chest wall, initial encounter S29.011A ; Muscle strain of right thigh, initial encounter S76.911A and Acute non- recurrent maxillary sinusitis J01.00 [place] [id number] [place] [address] 42339- 2548 Mar, Benign prostatic hyperplasia, presence of lower urinary tract symptoms unspecified, unspecified morphology N40.0 [place] [id number] [place] [address] 15865- 2056 Jan, Low back pain M54.5 [place] [id number] [place] [address] 97291- 4766 Jan, Low back pain M54.5 ; Essential hypertension I10 ; Hyperlipidemia, unspecified E78.5 ; Anxiety F41.9 ; Moderate episode of recurrent major depressive disorder F33.1 ; Primary insomnia F51.01 ; Exposure to STD Z20.2 ; Encounter for hepatitis C screening test for low risk patient Z11.59 and History of herpes genitalis Z86.19 [facility] [id number] [place] [address] 71656- 4225 17 Jan, 2016 [facility] [address] 46371- 7208 20 Dec, 2015 [facility] [address] 48459- 4075 14 Dec, 2015 Anxiety F41.9 ; Cervicalgia M54.2 ; Moderate episode of recurrent major depressive disorder F33.1 and Encounter for immunization Z23 [facility] [id number] [place] [address] 89199- 5876 Oct, [facility] [address] 58741- 0981 Oct, [facility] [id number] [place] [address] 91517- 8504 16 Nov, 2015 [facility] [address] 36244- 5297 09 Nov, 2015 [facility] [id number] [place] [address] 80307- 2783 Sep, [facility] [id number] [place] [address] 28079- 3333 Aug, Low back pain M54.5 ; Anxiety F41.9 ; Primary insomnia F51.01 and Chronic prescription opiate use Z79.899 [facility] [id number] [place] [address] 02220- 2973 Jul, [facility] [id number] [place] [address] 72259- 3762 Jul, [facility] [id number] [place] [address] 35359- 4583 Jul, [facility] [address] [facility] [id number] [address]- 5857 Jul, [facility] [id number] [place] [address] 03827- 2018 Jul, [facility] [address] [address]- 5356 June, [facility] [id number] [place] [address] 64548- 8971 June, [facility] [address] [facility] [id number] [place] [address] 13187- 9676 June, [facility] [id number] [place] [address], [place] [address]- 6353 June, [facility] [id number] [place] [address] 12486- 2588 May, Preoperative cardiovascular examination Z01.810 [facility] [address] [address]- 4901 May, [facility] [id number] [place] [address] 57461- 2653 Apr, [facility] [id number] [place] [address] 34828- 8985 Apr, Osteoarthritis of right knee M17.9 [facility] [address] [address]- 5628 30 May, 2015 [facility] [address] [address]- 9762 16 May, 2015 [facility] [address] [address]- 5236 Apr, [facility] [id number] [address]- 5816 Apr, [facility] [address] [address]- 9002 08 Apr, 2016 History of excessive cerumen Z78.9 ; Obstructive sleep apnea syndrome G47.33 ; History of diverticulitis Z87.19 and Nephrolithiasis N20.0 [place] [id number] [place] [address] 66423- 3397 29 Apr, 2015 [facility] [id number] [place] [address] 13473 -1911 23 Apr, 2015 Abdominal pain R10.9 [place] [address] 32399- 3150 10 Apr, 2015 [place] [address] 44126- 8666 04 Apr, 2015 Osteoarthritis of right knee M17.9 [place] [id number] [place] [address] 62113- 0237 Mar, [place] [address] 07725- 4443 15 Mar, 2015 [place] [id number] [place] [address] 58659- 9693 Mar, [place] [id number] [place] [address] 27865- 5932 Mar, [facility] [id number] [place] [address] 34854 -9576 Mar, Pyelonephritis N12 ; Left-sided thoracic back pain M54.6 ; Hematuria, unspecified R31.9 and Kidney stone N20.0 [place] [id number] [place] [address] 91480- 3284 12 Mar, 2015 History of weight loss surgery Z98.84 [place] [address] 81375- 5104 07 Mar, 2015 History of weight loss surgery Z98.84 and Hyperlipidemia, unspecified E78.5 [place] [id number] [place] [address] 96135- 3552 Mar, Low back pain M54.5 ; Chronic prescription opiate use Z79.899 ; Hyperlipidemia, unspecified E78.5 ; Spasm of back muscles M62.830 and History of weight loss surgery Z98.84 [facility] [id number] [place] [address] 66806- 4831 Jan, [facility] [id number] [place] [address] 15898- 4256 Jan, [facility] [id number] [place] [address] 55694- 6467 Jan, [facility] [id number] [place] [address] 68583- 1521 Dec, [facility] [id number] [place] [address] 97484- 4214 Dec, [facility] [id number] [place] [address] 52526- 8420 Dec, [facility] [id number] [place] [address] 92108- 7555 Nov, [facility] [id number] [place] [address] 59401- 8393 Nov, Obstructive sleep apnea syndrome G47.33 and Pharyngoesophageal dysphagia R13.14 [facility] [id number] [place] [address] 61220- 4566 Nov, [facility] [id number] [place] [address] 94049- 6642 Nov, [facility] [id number] [place] [address] 40093- 5997 Nov, [facility] [id number] [place] [address] [id number] Oct, Dental examination V72.2 [facility] [id number] [place] [address] 34164- 3502 Oct, [facility] [id number] [place] [address] 29356- 0634 Oct, [facility] [address] [address]- 2046 Oct, [facility] [id number] [place] [address] 16458- 0249 Oct, [facility] [id number] [place] [address] 96007- 3339 Oct, BPH (benign prostatic hyperplasia) 600.00 and Urinary frequency 788.41 [facility] [id number] [place] [address] 47798- 5493 Oct, [facility] [id number] [place] [address] 36578- 7557 Oct, [facility] [id number] [place] [address] 36588- 8115 Oct, [facility] [id number] [place] [address] 20655- 7777 Sep, Cerumen impaction 380.4 ; Cerumen debris on tympanic membrane 380.4 ; Psoriasis 696.1 and MICKY (secretory otitis media) 381.4 [facility] [id number] [place] [address] [id number] Sep, Dental examination V72.2 [facility] [id number] [place] [address] 24484- 4151 Sep, Fatigue 780.79 ; Irritable bowel syndrome 564.1 ; Overweight 278.02 ; Poor sleep V69.4 ; Shaking spells 781.0 [address] Bro[address] tooth [address].63 [facility] [id number] [place] [address] 21474- 6872 Sep, [facility] [id number] [place] [address] Sep, [facility] [id number] [place] [address] Aug, [facility] [address] [facility] [id number] [place] [address] Jul, [facility] [address] [facility] [id number] [place] [address] Jul, [facility] [address] [facility] [id number] [place] [address] Jul, [facility] [address] [id number] [place] [address] Jul, [facility] [address] [facility] [id number] [place] [address] June, Arthritis of knee, right 716.96 [facility] [address] [facility] [id number] [place] [address] June, [facility] [id number] [place] [address] June, Elevated blood pressure reading without diagnosis of hypertension 796.2 [facility] [id number] [place] [address] June, [facility] [address] [id number] [place] [address] June, [facility] [address] [id number] [place] [address] June, [facility] [address] [id number] [place] [address] June, [facility] [address] [facility] [id number] [place] [address] May, [facility] [address] [id number] [place] [address] May, [facility] [address] [facility] [id number] [place] [address] Apr, [facility] [address] [id number] [place] [address] Apr, [facility] [place] [facility] [address] [id number] [place] [address] Apr, [facility] [place] [facility] [address] [id number] [place] [address] Apr, [facility] [place] [facility] [address] [id number] [place] [address] Apr, [facility] [place] [facility] [address] [id number] [place] [address] Apr, [facility] [place] [facility] [address] [id number] [place] [address] 0884 Apr, [facility] [place] [facility] [address] [id number] [place] [address] 2319 Apr, [facility] [place] [facility] [address] [facility] [id number] [place] [address] 3985 Apr, [facility] [place] [facility] [address] [id number] [place] [address] 2494 Apr, [facility] [place] [facility] [address] [id number] [place] [address] 5806 Apr, [facility] [place] [facility] [address] [facility] [id number] [place] [address] 5987 Apr, [facility] [place] [facility] [address] [facility] [id number] [place] [address] 1630 Apr, 2014 [facility] [place] [facility] [address] [id number] [address] 7[address] Apr, 2014 [facility] [place] [facility] [address] [id number] [place] [address]- 4296 Apr, [facility] [place] [facility] [address] [id number] [place] [address]- 9950 Apr, 2014 [facility] [place] [facility] [address] [facility] [id number] [place] [address] 6863 Apr, 2014 [facility] [place] [facility] [address] [facility] [id number] [place] [address] 4874 20 Apr, 2014 [facility] [place] [facility] [address] [id number] [place] [address]- 8706 18 Apr, 2014 [facility] [place] [facility] [address] [facility] [id number] [place] [address]- 5109 18 Apr, 2014 [facility] [place] [facility] [address] [facility] [id number] [place] [address]- 2264 13 Apr, 2014 [facility] [place] [facility] [address] [facility] [id number] [place] [address]- 5858 Apr, 2014 [facility] [place] [facility] [address] [facility] [id number] [place] [address]- 6706 Apr, 2014 [facility] [place] [facility] [address] [id number] [place] [address] 8943 Apr, 2014 [facility] [place] [facility] [address] [id number] [place] [address]- 6932 12 Apr, 2014 [facility] [place] [facility] [address] [facility] [id number] [place] [address]- 8609 Apr, 2014 [facility] [place] [facility] [address] [id number] [place] [address]- 0128 Apr, 2014 [facility] [place] [facility] [address] [id number] [place] [address]- 1323 Apr, 2014 [facility] [place] [facility] [address] [facility] [id number] [place] [address]- 3284 Apr, 2014 [facility] [place] [facility] [address] [facility] [id number] [place] [address]- 8469 Apr, 2014 [facility] [place] [facility] [address] [facility] [id number] [place] [address]- 0559 Apr, 2014 [facility] [place] [facility] [address] [facility] [id number] [place] [address]- 6061 Apr, 2014 [facility] [place] [facility] [id number] [address] 4326 Apr, [facility] [address] [id number] [place] [address]- 3553 Mar, [facility] [place] [facility] [address] [id number] [place] [address]- 9943 Mar, [facility] [place] [facility] [address] [id number] [place] [address]- 7424 Mar, [facility] [place] [facility] [address] [id number] [place] [address]- 5801 Mar, [facility] [place] [facility] [address] [id number] [place] [address]- 5101 Mar, [facility] [place] [facility] [address] [id number] [place] [address]- 8779 Mar, [facility] [place] [facility] [address] [id number] [place] [address]- 2370 Mar, [facility] [place] [facility] [address] [id number] [place] [address]- 0718 Mar, [facility] [place] [facility] [address] [id number] [place] [address]- 0740 Mar, [facility] [place] [facility] [address] [id number] [place] [address]- 5849 Mar, [facility] [place] [facility] [address] [id number] [place] [address]- 6189 Jan, [facility] [place] [facility] [address] [id number] [place] [address]- 3687 Jan, [facility] [place] [facility] [address] [id number] [place] [address]- 1618 Jan, [facility] [place] [facility] [address] [id number] [place] [address]- 6303 Jan, [facility] [place] [facility] [address] [id number] [place] [address]- 0606 Jan, [facility] [place] [facility] [address] [id number] [place] [address]- 0662 Jan, [facility] [place] [facility] [address] [id number] [place] [address]- 1300 Jan, [facility] [place] [facility] [address] [id number] [place] [address]- 6818 Jan, [facility] [place] [facility] [address] [id number] [place] [address]- 2774 Jan, [facility] [place] [facility] [address] [id number] [place] [address]- 9783 Jan, [facility] [place] [facility] [address] [id number] [place] [address]- 4757 Jan, [facility] [place] [facility] [address] [id number] [place] [address]- 4748 Jan, [facility] [place] [facility] [address] [id number] [place] [address]- 5960 Dec, [facility] [place] [facility] [address] [id number] [place] [address]- 6901 Dec, [facility] [place] [facility] [address] [id number] [place] [address]- 5998 Dec, [facility] [place] [facility] [address] [id number] [place] [address]- 0822 Dec, [facility] [place] [facility] [address] [id number] [place] [address]- 7356 Dec, [facility] [place] [facility] [address] [id number] [place] [address]- 5301 Dec, [facility] [place] [facility] [address] [id number] [place] [address]- 2748 Dec, [facility] [place] [facility] [address] [id number] [place] [address]- 0857 Dec, [facility] [place] [facility] [address] [id number] [place] [address]- 8715 Dec, [facility] [place] [facility] [address] [id number] [place] [address]- 2497 Dec, [facility] [place] [facility] [address] [id number] [place] [address]- 0498 Nov, [facility] [place] [facility] [address] [id number] [place] [address]- 9699 Nov, [facility] [place] [facility] [address] [id number] [place] [address]- 7487 Nov, [facility] [place] [facility] [address] [id number] [place] [address]- 0412 Nov, [facility] [place] [facility] [address] [id number] [place] [address]- 2177 Nov, [facility] [place] [facility] [address] [id number] [place] [address]- 6185 Nov, [facility] [place] [facility] [address] [id number] [place] [address]- 9305 Nov, [facility] [place] [facility] [address] [id number] [place] [address]- 1936 Nov, [facility] [place] [facility] [address] [id number] [place] [address]- 6299 Nov, [facility] [place] [facility] [address] [id number] [place] [address]- 6927 24 Nov, 2013 [facility] [place] [facility] [address] [id number] [place] [address]- 4353 Nov, [facility] [place] [facility] [address] [id number] [place] [address]- 2685 17 Nov, 2013 [facility] [place] [facility] [address] [id number] [place] [address]- 4682 Nov, [facility] [place] [facility] [address] [id number] [place] [address]- 4901 14 Nov, 2013 [facility] [place] [facility] [address] [id number] [place] [address]- 0942 Nov, [facility] [place] [facility] [address] [id number] [place] [address]- 2551 10 Nov, 2013 [facility] [place] [facility] [address] [id number] [place] [address]- 7652 Nov, [facility] [place] [facility] [address] [id number] [place] [address]- 2658 Nov, [facility] [place] [facility] [address] [id number] [place] [address]- 9732 Nov, [facility] [place] [facility] [address] [id number] [place] [address]- 1362 Nov, [facility] [place] [facility] [address] [id number] [place] [address]- 0182 Oct, 2013 [facility] [place] [facility] [address] [id number] [place] [address]- 5096 26 Oct, 2013 [facility] [place] [facility] [address] [id number] [place] [address]- 6427 19 Oct, 2013 [facility] [place] [facility] [address] [id number] [place] [address]- 7160 19 Oct, 2013 [facility] [place] [facility] [address] [facility] [id number] [place] [address]- 6291 12 Oct, 2013 [facility] [place] [facility] [address] [id number] [place] [address]- 3817 12 Oct, 2013 [facility] [place] [facility] [address] [id number] [place] [address]- 2549 10 Oct, 2013 [facility] [place] [facility] [address] [id number] [place] [address]- 2657 10 Oct, 2013 [facility] [place] [facility] [address] [facility] [id number] [place] [address]- 5924 08 Oct, 2013 [facility] [place] [facility] [address] [facility] [id number] [place] [address]- 7275 08 Oct, 2013 [facility] [place] [facility] [address] [id number] [place] [address]- 6782 Sep, [facility] [place] [facility] [address] [id number] [place] [address]- 9973 Sep, [facility] [place] [facility] [address] [id number] [place] [address]- 5524 Sep, [facility] [place] [facility] [address] [id number] [place] [address]- 2159 Sep, [facility] [place] [facility] [address] [id number] [place] [address]- 6741 Sep, [facility] [place] [facility] [address] [id number] [place] [address]- 7726 Sep, [facility] [place] [facility] [address] [id number] [place] [address]- 5984 Sep, [facility] [place] [facility] [address] [id number] [place] [address]- 8728 Sep, [facility] [place] [facility] [address] [id number] [place] [address]- 4919 Sep, [facility] [place] [facility] [address] [id number] [place] [address]- 0990 Sep, [facility] [place] [facility] [address] [id number] [place] [address]- 6309 Sep, [facility] [place] [facility] [address] [id number] [place] [address]- 0159 Sep, [facility] [place] [facility] [address] [id number] [place] [address]- 4282 Sep, [facility] [place] [facility] [address] [id number] [place] [address]- 0832 Sep, [facility] [place] [facility] [address] [id number] [place] [address]- 3883 Sep, [facility] [place] [facility] [address] [id number] [place] [address]- 3559 Sep, [facility] [place] [facility] [address] [id number] [place] [address]- 8309 Sep, [facility] [place] [facility] [address] [id number] [place] [address]- 7652 Sep, [facility] [place] [facility] [address] [id number] [place] [address]- 1760 Sep, [facility] [place] [facility] [address] [id number] [place] [address]- 2577 Sep, [facility] [place] [facility] [address] [id number] [place] [address]- 7182 Sep, [facility] [place] [facility] [address] [id number] [place] [address]- 8033 Sep, [facility] [place] [facility] [address] [id number] [place] [address]- 8694 Sep, [facility] [place] [facility] [address] [id number] [place] [address]- 7059 Sep, [facility] [place] [facility] [address] [id number] [place] [address]- 5246 Sep, [facility] [place] [facility] [address] [id number] [place] [address]- 7658 Aug, [facility] [place] [facility] [address] [id number] [place] [address]- 4458 Aug, [facility] [place] [facility] [address] [id number] [place] [address]- 3172 Aug, [facility] [place] [facility] [address] [id number] [place] [address]- 8512 Aug, [facility] [place] [facility] [address] [id number] [place] [address]- 5820 Aug, [facility] [place] [facility] [address] [id number] [place] [address]- 9161 Aug, [facility] [place] [facility] [address] [id number] [place] [address]- 1595 Aug, [facility] [place] [facility] [address] [id number] [place] [address]- 3374 Aug, [facility] [place] [facility] [address] [id number] [place] [address]- 2870 Aug, [facility] [place] [facility] [address] [id number] [place] [address]- 3553 Aug, [facility] [place] [facility] [address] [id number] [place] [address]- 6115 Aug, [facility] [place] [facility] [address] [id number] [place] [address]- 5761 Aug, [facility] [place] [facility] [address] [id number] [place] [address]- 2689 Aug, [facility] [place] [facility] [address] [id number] [place] [address]- 9334 Jul, [facility] [place] [facility] [address] [id number] [place] [address]- 5511 Jul, [facility] [place] [facility] [address] [id number] [place] [address]- 1429 Jul, [facility] [place] [facility] [address] [id number] [place] [address]- 9723 Jul, [facility] [place] [facility] [address] [id number] [place] [address]- 4650 Jul, [facility] [place] [facility] [address] [id number] [place] [address]- 8021 Jul, [facility] [place] [facility] [address] [id number] [place] [address]- 3645 Jul, [facility] [place] [facility] [address] [id number] [place] [address]- 0267 June, [facility] [place] [facility] [address] [id number] [place] [address]- 4017 June, [facility] [place] [facility] [address] [id number] [place] [address]- 6151 June, [facility] [place] [facility] [address] [id number] [place] [address]- 0846 June, [facility] [place] [facility] [address] [id number] [place] [address]- 8364 May, [facility] [place] [facility] [address] [id number] [place] [address]- 3462 May, [facility] [place] [facility] [address] [id number] [place] [address]- 3933 May, [facility] [place] [facility] [address] [id number] [place] [address]- 6685 May, [facility] [place] [facility] [address] [id number] [place] [address]- 7970 May, [facility] [place] [facility] [address] [id number] [place] [address]- 6396 May, [facility] [place] [facility] [address] [id number] [place] [address]- 8382 May, [facility] [place] [facility] [address] [id number] [place] [address]- 3182 May, [facility] [place] [facility] [address] [id number] [place] [address]- 2798 May, [facility] [place] [facility] [address] [id number] [place] [address]- 4095 May, [facility] [place] [facility] [address] [id number] [place] [address]- 2844 Apr, [facility] [place] [facility] [address] [id number] [place] [address]- 7105 Apr, [facility] [place] [facility] [address] [id number] [place] [address]- 2703 Apr, [facility] [place] [facility] [address] [id number] [place] [address]- 2546 Apr, [facility] [place] [facility] [address] [id number] [place] [address]- 3546 Apr, [facility] [place] [facility] [address] [id number] [place] [address]- 1446 Apr, [facility] [place] [facility] [address] [id number] [place] [address]- 6156 Apr, [facility] [place] [facility] [address] [id number] [place] [address]- 8041 Apr, [facility] [place] [facility] [address] [id number] [place] [address]- 2516 Apr, [facility] [place] [facility] [address] [id number] [place] [address]- 6827 Apr, [facility] [place] [facility] [address] [id number] [place] [address]- 3187 Mar, [facility] [place] [facility] [address] [id number] [place] [address]- 9798 Mar, [facility] [place] [facility] [address] [id number] [place] [address]- 1466 Mar, [facility] [place] [facility] [address] [facility] [id number] [place] [address]- 1335 Mar, [facility] [place] [facility] [address] [id number] [place] [address]- 8416 Mar, [facility] [place] [facility] [address] [id number] [place] [address]- 9247 Mar, [facility] [place] [facility] [address] [id number] [place] [address]- 9657 Jan, [facility] [place] [facility] [address] [id number] [place] [address]- 2696 Jan, [facility] [place] [facility] [address] [id number] [place] [address]- 8453 Jan, [facility] [place] [facility] [address] [id number] [place] [address]- 4590 Jan, [facility] [place] [facility] [address] [id number] [place] [address]- 7786 Jan, [facility] [place] [facility] [address] [id number] [place] [address]- 3405 Jan, [facility] [place] [facility] [address] [id number] [place] [address]- 3011 Jan, [facility] [place] [facility] [address] [id number] [place] [address]- 3919 Jan, [facility] [place] [facility] [address] [id number] [place] [address]- 2348 Jan, [facility] [place] [facility] [address] [id number] [place] [address]- 7299 Dec, [facility] [place] [facility] [address] [id number] [place] [address]- 1740 Dec, [facility] [place] [facility] [address] [id number] [place] [address]- 2939 Dec, [facility] [place] [facility] [address] [id number] [place] [address]- 5075 Dec, [facility] [place] [facility] [address] [id number] [place] [address]- 5930 Dec, [facility] [place] [facility] [address] [id number] [place] [address]- 2992 Dec, [facility] [place] [facility] [address] [id number] [place] [address]- 4206 15 Dec, 2012 [facility] [place] [facility] [address] [id number] [place] [address]- 0158 Dec, [facility] [place] [facility] [address] [id number] [place] [address]- 4505 05 Dec, 2012 [facility] [place] [facility] [address] [id number] [place] [address]- 7406 Dec, [facility] [place] [facility] [address] [id number] [place] [address]- 1620 Dec, [facility] [place] [facility] [address] [id number] [place] [address]- 5164 Nov, [facility] [place] [facility] [address] [id number] [place] [address] 254 Nov, [facility] [place] [facility] [address] [id number] [place] [address]- 8299 Nov, [facility] [place] [facility] [address] [id number] [place] [address]- 3319 Nov, [facility] [place] [facility] [address] [id number] [place] [address]- 9385 Nov, [facility] [place] [facility] [address] [id number] [place] [address]- 4781 Oct, [facility] [place] [facility] [address] [id number] [place] [address]- 0931 Oct, [facility] [place] [facility] [address] [id number] [place] [address] Sep, [facility] [place] [facility] [address] [id number] [place] [address] Aug, [facility] [place] [facility] [address] [id number] [place] [address] Aug, [facility] [place] [facility] [address] [id number] [place] [address] Aug, [facility] [place] [facility] [address] [id number] [place] [address] Aug, [facility] [place] [facility] [address] [id number] [place] [address] Jul, [facility] [place] [facility] [address] [id number] [place] [address] 254 Jul, [facility] [place] [facility] [address] [id number] [place] [address] June, [facility] [address] [id number] [place] [address] June, [facility] [address] [id number] [place] [address] June, [facility] [address] [id number] [place] [address] May, [facility] [address] [id number] [place] [address] May, [facility] [address] [id number] [place] [address] May, [facility] [address] [id number] [place] [address] Apr, [facility] [address] [id number] [place] [address] Apr, [facility] [address] [id number] [place] [address] 15 Apr, 2012 [facility] [address] [id number] [place] [address] 14 Apr, 2012 [facility] [address] [facility] [id number] [place] [address] Apr, [facility] [address] [id number] [place] [address] Apr, [facility] [address] [id number] [place] [address] Apr, [facility] [address] [id number] [place] [address] Apr, [facility] [address] [id number] [place] [address] Apr, [facility] [address] [id number] [place] [address] Apr, [facility] [place] [facility] [address] [id number] [place] [address] Apr, [facility] [place] [facility] [address] [id number] [place] [address] Apr, [facility] [place] [facility] [address] [id number] [place] [address] Apr, [facility] [place] [facility] [address] [id number] [place] [address] Mar, [facility] [place] [facility] [address] [id number] [place] [address] Mar, [facility] [place] [facility] [address] [id number] [place] [address] Mar, [facility] [place] [facility] [address] [id number] [place] [address] Mar, [facility] [place] [facility] [address] [id number] [place] [address] Mar, [facility] [place] [facility] [address] [id number] [place] [address] Jan, [facility] [place] [facility] [address] [id number] [place] [address] 28 Jan, 2012 [facility] [place] [facility] [address] [id number] [place] [address] 22 Jan, 2012 [facility] [place] [facility] [address] [id number] [place] [address] 48[address] 22 Jan, 2012 [facility] [place] [facility] [address] [id number] [place] [address]10 14 Jan, 2012 [facility] [place] [facility] [address] [id number] [place] [address] 13 Jan, 2012 [facility] [place] [facility] [address] [id number] [place] [address] 13 Jan, 2012 [facility] [place] [facility] [address] [id number] [place] [address]- [address] 11 Jan, 2012 [facility] [address] [id number] [place] [address]- [address] 06 Jan, 2012 [facility] [place] [facility] [address] [id number] [place] [address] 06 Jan, 2012 [facility] [address] [id number] [place] [address] Jan, [facility] [place] [facility] [address] [id number] [place] [address] Jan, [facility] [address] [id number] [place] [address] Jan, [facility] [address] [id number] [place] [address]- [address] Jan, [facility] [place] [facility] [address] [id number] [place] [address]- [address] Dec, [facility] [address] [id number] [place] [address]- 79[address] 26 Jan, 2012 [facility] [place] [facility] [address] [id number] [place] [address]- 3507 19 Jan, 2012 [facility] [address] [facility] [id number] [place] [address] 19 Jan, 2012 [facility] [place] [facility] [address] [id number] [place] [address] 15 Jan, 2012 [facility] [place] [facility] [address] [id number] [place] [address]- [address] 15 Jan, 2012 [facility] [place] [facility] [address] [id number] [place] [address]- [address]486 14 Jan, 2012 [facility] [place] [facility] [address] [id number] [place] [address]- [address]199 14 Jan, 2012 [facility] [place] [facility] [address] [id number] [place] [address]- 8516 14 Jan, 2012 [facility] [place] [facility] [address] [id number] [place] [address]- 8067 14 Jan, 2012 [facility] [place] [facility] [address] [id number] [place] [address]- [address] 07 Jan, 2012 [facility] [place] [facility] [address] [id number] [place] [address]797 07 Jan, 2012 [facility] [place] [facility] [address] [id number] [place] [address]- 2015 16 Dec, 2011 [facility] [place] [facility] [address] [id number] [place] [address] 1368 16 Dec, 2011 [facility] [place] [facility] [address] [id number] [place] [address]- [address] 13 Nov, 2011 [facility] [place] [facility] [address] [id number] [place] [address]- 0910 13 Nov, 2011 [facility] [place] [facility] [address] [id number] [place] [address]- 5964 13 Nov, 2011 [facility] [place] [facility] [address] [id number] [place] [address]- [address] 12 Nov, 2011 [facility] [place] [facility] [address] [id number] [place] [address]- 3082 30 Oct, 2011 [facility] [place] [facility] [address] [id number] [place] [address] Sep, [facility] [place] [facility] [address] [id number] [place] [address] 23 Aug, 2011 [facility] [place] [facility] [address] [id number] [place] [address]- [address]239 Aug, [facility] [place] [facility] [address] [id number] [place] [address] Aug, [facility] [place] [facility] [address] [id number] [place] [address]- [address] Aug, [facility] [facility] [address] [id number] [address] June, [facility] [address] [id number] [place] [address] June, [facility] [address] [id number] [place] [address] May, [facility] [address] [id number] [place] [address] Apr, [facility] [address] [id number] [place] [address] Apr, [facility] [address] [id number] [place] [address] Apr, [facility] [address] [id number] [place] [address] Apr, [facility] [address] [facility] [id number] [place] [address] Apr, [facility] [address] [id number] [place] [address] Apr, [facility] [address] [facility] [id number] [place] [address] Mar, [facility] [address] [facility] [id number] [place] [address] Mar, [facility] [address] [facility] [id number] [place] [address] Mar, [facility] [place] [facility] [address] [id number] [place] [address] Jan, [facility] [place] [facility] [address] [id number] [place] [address] Jan, [facility] [place] [facility] [address] [facility] [id number] [place] [address] Jan, [facility] [place] [facility] [address] [facility] [id number] [place] [address] Jan, [facility] [place] [facility] [address] [id number] [place] [address] Jan, [facility] [place] [facility] [address] [id number] [place] [address] Jan, [facility] [place] [facility] [address] [id number] [place] [address] Jan, [facility] [place] [facility] [address] [id number] [place] [address] Dec, [facility] [place] [facility] [address] [id number] [place] [address] Dec, [facility] [place] [facility] [address] [id number] [place] [address] Nov, [facility] [place] [facility] [address] [id number] [place] [address] Nov, [facility] [place] [facility] [address] [id number] [place] [address] Nov, [facility] [place] [facility] [address] [id number] [place] [address] Nov, [facility] [place] [facility] [address] [id number] [place] [address] Oct, [facility] [place] [facility] [address] [id number] [place] [address] Sep, [facility] [place] [facility] [address] [id number] [place] [address] Mar, [facility] [place] [facility] [address] [id number] [place] [address] Jan, [facility] [place] [facility] [address] [id number] [place] [address] Dec, [facility] [place] [facility] [address] [id number] [place] [address] Dec, [facility] [place] [facility] [address] [id number] [place] [address] 04 Dec, 2009 [facility] [address] [id number] [place] [address] Dec, [facility] [address] [id number] [place] [address]- [address] 26 Nov, 2009 [facility] [place] [facility] [address] [facility] [id number] [place] [address] 15 Nov, 2009 [facility] [place] [facility] [address] [id number] [place] [address] 14 Nov, 2009 [facility] [place] [address] [id number] [place] [address] 14 Nov, 2009 [facility] [place] [facility] [address] [id number] [place] [address] 13 Oct, 2009 [facility] [place] [facility] [address] [id number] [place] [address]- [address] 17 Jul, 2009 [facility] [address] [id number] [place] [address] June, [facility] [address] [id number] [place] [address] June, [facility] [address] [facility] [id number] [place] [address] 17 Apr, 2009 [facility] [address] [id number] [place] [address] Mar, [facility] [address] [id number] [place] [address] Jan, [facility] [address] [id number] [place] [address] Jan, [facility] [address] [facility] [id number] [place] [address] Dec, [facility] [address] [facility] [id number] [place] [address] Dec, [facility] [address] [facility] [id number] [place] [address] [address] [address] [facility] [address] [facility] [id number] [place] [address] Dec, [facility] [address] [facility] [id number] [place] [address] Nov, [facility] [address] [facility] [id number] [place] [address] Jul, [facility] [address] [facility] [id number] [place] [address] June, IMMUNIZATIONS No Known Immunizations SOCIAL HISTORY Never Assessed REASON FOR VISIT Pain Follow up PLAN OF CARE VITAL SIGNS MEDICATIONS Unknown Medications RESULTS Name Result Date Reference Range Ultrasound : Soft Tissue (specify location) 2017-04-22 PROCEDURES No Known procedures INSTRUCTIONS MEDICATIONS ADMINISTERED No Known Medications MEDICAL (GENERAL) HISTORY Type Description Date Medical History hypertension Medical History sleep apnea-did not tolerate CPAP Medical History oxygen dependent at [facility] Medical History colonic polyps Medical [...]
--- OUTSIDE RECORDS SUMMARY | 2018-02-26 19:17 | XMS REPORT ---
Author Author GRAHAM CHRIS [facility] Address [address] [place] [address] Care Team Providers Care Audiology Technician Name Role Phone GRAHAMELLIOTT HANNAHANY Unavailable PROBLEMS Type Condition ICD9-CM Code PGC79-AW Code Onset Dates Condition Status SNOMED Code Problem Pulmonary asbestosis J61 Active 93028254 Problem Left ventricular diastolic dysfunction I51.9 Active 611416016 Problem Chronic gout, unspecified cause, unspecified site M1A.9XX0 Active 83109244 Problem Renal cyst, left N28.1 Active 59993684 Problem History of weight loss surgery Z98.84 Active 966721042 Problem Nocturnal hypoxia G47.34 Active 493732048 Problem Obstructive sleep apnea syndrome G47.33 Active 15285066 Problem History of diverticulitis Z87.19 Active 237230676277231 Problem Allergic rhinitis, unspecified allergic rhinitis type J30.9 Active 94123591 Problem Erectile dysfunction due to diseases classified elsewhere N52.1 Active 751983874 Problem Acute right-sided low back pain with right-sided sciatica M54.41 Active 682939162 Problem Psoriasis L40.9 Active 3778652 Problem Essential hypertension I10 Active 54684855 Problem Nephrolithiasis N20.0 Active 75410067 Problem Chronic prescription opiate use Z79.899 Active 781344973 Problem 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 Active 20261995 Problem Benign prostatic hyperplasia, presence of lower urinary tract symptoms unspecified, unspecified morphology N40.0 Active 518900020 Problem Moderate episode of recurrent major depressive disorder F33.1 Active 396522018 Problem Age-related osteoporosis without current pathological fracture M81.0 Active 06474999 Problem Low back pain M54.5 Active 029752762 Problem Anxiety F41.9 Active 56647041 Problem Urge incontinence N39.41 Active 635213423 Problem Hyperlipidemia, unspecified E78.5 Active 72636014 Problem Esophageal stricture K22.2 Active 20702742 Problem Cervicalgia M54.2 Active 4756507544047 Problem Primary insomnia F51.01 Active 380816090 ALLERGIES No Information ENCOUNTERS Encounter Location Date Diagnosis [facility] [address] [address]- [address] June, Anxiety F41.9 [facility] [address] 48910- 8770 June, [facility] [address] 04086- 9477 June, Low back pain M54.5 ; Chronic prescription opiate use Z79.899 ; Candidal intertrigo B37.2 ; Urge incontinence N39.41 ; Essential hypertension I10 ; Moderate episode of recurrent major depressive disorder F33.1 ; Age-related osteoporosis without current pathological fracture M81.0 and BMI 45.0-49.9, adult Z68.42 [facility] [address] 87000- 0875 June, [facility] [address] 07285- 2594 May, Anxiety F41.9 [place] [address] 66054- 7872 May, [facility] [address] 05780- 3264 May, [facility] [address] 86092- 3039 Apr, Anxiety F41.9 [facility] [address] 58604- 9582 Apr, [facility] [address] 77575- 0419 15 Apr, 2017 Low back pain M54.5 [facility] [address] 64903- 9920 02 Apr, 2017 [facility] [address] 95447- 3682 Apr, [facility] [id number] [place] [address] 36315- 3166 Apr, Anxiety F41.9 [facility] [id number] [place] [address] 37929- 1327 Apr, Right groin pain R10.31 [place] [address] 08168- 5959 Mar, [place] [address] [id number] [place] [address] 62398- 1996 Mar, [place] [address] 33539- 4077 Mar, Anxiety F41.9 [place] [address] [place] [id number] [place] [address] 40721- 8199 Mar, Low back pain M54.5 [place] [address] [address] [id number] [place] [address] 16809- 0982 Mar, Right groin pain R10.31 ; Low back pain M54.5 and BMI 45.0- 49.9, adult Z68.42 [place] [id number] [place] [address] 38768- 1934 Mar, [place] [address] [id number] [place] [address] 31697- 3237 Mar, [place] [id number] [place] [address] 75621- 9846 Mar, [facility] [id number] [place] [address] 69744 -0982 Mar, [facility] [address] [place] [id number] [place] [address] 80423 -5560 Mar, Cough R05 ; Pneumonia of right lower lobe due to infectious organism J18.1 and Abnormal chest x-ray R93.8 [place] [address] [place] [address]- 3214 Mar, [facility] [id number] [place] [address] 18259- 2139 Mar, [facility] [id number] [place] [address] 38102- 3059 Jan, Anxiety F41.9 [facility] [address] 90712- 1644 Jan, [facility] [id number] [place] [address] 20872- 3797 Jan, Moderate episode of recurrent major depressive disorder F33.1 [facility] [id number] [place] [address] 75994- 4825 Jan, Subacromial bursitis of right shoulder joint M75.51 ; Shortness of breath on exertion R06.02 and BMI 45.0-49.9, adult Z68.42 [facility] [id number] [place] [address] 11533- 2026 Dec, Anxiety F41.9 [facility] [id number] [place] [address] 29292- 1476 Dec, [facility] [id number] [place] [address] 41649- 3962 Dec, Low back pain M54.5 [facility] [id number] [place] [address] 12560- 5130 Oct, Low back pain M54.5 [facility] [id number] [place] [address] 86051- 5336 Sep, [facility] [id number] [place] [address] 43625- 8956 Sep, Erectile dysfunction due to diseases classified elsewhere N52.1 [facility] [id number] [place] [address] 09273- 3754 Sep, Erectile dysfunction due to diseases classified elsewhere N52.1 [place] [address] [id number] [place] [address] 12421- 5130 Sep, [facility] [address] 48831- 8528 Sep, Erectile dysfunction due to diseases classified elsewhere N52.1 [facility] [address] 81297- 3782 Sep, Low back pain M54.5 and Anxiety F41.9 [facility] [address] 78051 -5870 Aug, Acute allergic rhinitis J30.9 [facility] [address] 14190- 8344 Aug, [facility] [address] 29074- 1293 Aug, Anxiety F41.9 [facility] [address] 14569- 8314 Jul, Low back pain M54.5 ; Chronic prescription opiate use Z79.899 and Essential hypertension I10 [facility] [address] 29840- 7490 Jul, Anxiety F41.9 and Low back pain M54.5 [facility] [id number] [place] [address] 05571- 6091 June, [facility] [id number] [place] [address] 44970- 1618 June, Anxiety F41.9 [facility] [id number] [place] [address] 38850- 5865 May, Low back pain M54.5 [facility] [id number] [place] [address] 75357- 5563 May, [facility] [id number] [place] [address] 68094- 5906 May, Anxiety F41.9 [place] [id number] [place] [address] 74994- 2014 Apr, [place] [address] 64594- 5350 Apr, Low back pain M54.5 [place] [address] 48867- 1243 Apr, Moderate episode of recurrent major depressive disorder F33.1 [place] [address] 70181- 5012 Apr, Anxiety F41.9 [place] [address] 82003- 4166 Apr, Low back pain M54.5 [place] [address] 32950- 0263 15 Apr, 2016 Elevated alkaline phosphatase level R74.8 [place] [address] [id number] [place] [address] 93282- 6714 10 Apr, 2016 Alkaline phosphatase elevation R74.8 [place] [address] 99099- 2660 06 Apr, 2016 Anxiety F41.9 [place] [address] [id number] [place] [address] 87884- 8515 Apr, Low back pain M54.5 [place] [address] [address] [id number] [place] [address] 97362- 3298 Apr, History of weight loss surgery Z98.84 ; Encounter for hepatitis C screening test for low risk patient Z11.59 ; History of herpes genitalis Z86.19 ; Essential hypertension I10 ; Hyperlipidemia, unspecified E78.5 ; Exposure to STD Z20.2 and Benign prostatic hyperplasia, presence of lower urinary tract symptoms unspecified, unspecified morphology N40.0 [place] [address] [place] [id number] [place] [address] 61024- 0609 Apr, [place] [address] [address]- 6016 Mar, [facility] [address] [place] [address] 13459- 9701 Mar, [facility] [address] [address]- 7366 Mar, [facility] [address] [place] [address] 98763- 1796 Mar, Acute right-sided low back pain with right-sided sciatica M54.41 [place] [address] [place] [address] 95584- 5119 Mar, Low back pain M54.5 [facility] [address] [place] [address] 36491 -4252 13 Mar, 2016 Muscle strain of chest wall, initial encounter S29.011A ; Muscle strain of right thigh, initial encounter S76.911A and Acute non- recurrent maxillary sinusitis J01.00 [facility] [address] [place] [address] 87219- 1314 03 Mar, 2016 Benign prostatic hyperplasia, presence of lower urinary tract symptoms unspecified, unspecified morphology N40.0 [place] [address], [place] [address]- 8391 23 Jan, 2016 Low back pain M54.5 [facility] [address] [place] [address] 41933- 3812 13 Jan, 2016 Low back pain M54.5 ; Essential hypertension I10 ; Hyperlipidemia, unspecified E78.5 ; Anxiety F41.9 ; Moderate episode of recurrent major depressive disorder F33.1 ; Primary insomnia F51.01 ; Exposure to STD Z20.2 ; Encounter for hepatitis C screening test for low risk patient Z11.59 and History of herpes genitalis Z86.19 [facility] [address], [place] [address]- 5063 17 Jan, 2016 [facility] [address] [id number] [place] [address] 01466- 5061 Nov, [facility] [id number] [place] [address] 87793- 3720 Nov, Anxiety F41.9 ; Cervicalgia M54.2 ; Moderate episode of recurrent major depressive disorder F33.1 and Encounter for immunization Z23 [facility] [id number] [place] [address] 69189- 6558 Oct, [facility] [address] 95917- 4137 Oct, [facility] [address] 14345- 3765 16 Nov, 2015 [facility] [address] 51553- 5843 Oct, [facility] [id number] [place] [address] 14615- 1521 Sep, [facility] [id number] [place] [address] 33232- 8503 Aug, Low back pain M54.5 ; Anxiety F41.9 ; Primary insomnia F51.01 and Chronic prescription opiate use Z79.899 [facility] [id number] [place] [address] 69498- 6884 Jul, [facility] [id number] [place] [address] 75208- 6612 Jul, [facility] [id number] [place] [address] 47106- 0276 Jul, [facility] [id number] [place] [address] 96834- 9778 Jul, [facility] [id number] [place] [address] 20917- 0495 Jul, [facility] [id number] [place] [address] 40215- 3596 June, [facility] [address], [place] [address]- 3581 June, [facility] [id number] [place] [address] 16742- 9054 June, [facility] [id number] [place] [address] 81447- 1124 June, [facility] [id number] [place] [address] 15042- 7021 May, Preoperative cardiovascular examination Z01.810 [facility] [id number] [place] [address] 05106- 2260 May, [facility] [id number] [place] [address] 22546- 0932 Apr, [facility] [id number] [place] [address] 06557- 5595 Apr, Osteoarthritis of right knee M17.9 [facility] [id number] [place] [address] 80735- 2973 30 May, 2015 [facility] [id number] [place] [address] 68305- 8796 16 May, 2015 [facility] [id number] [place] [address] 25420- 7722 Apr, [facility] [id number] [place] [address] 77622- 2947 Apr, [facility] [id number] [place] [address] 14684- 2700 08 May, 2015 History of excessive cerumen Z78.9 ; Obstructive sleep apnea syndrome G47.33 ; History of diverticulitis Z87.19 and Nephrolithiasis N20.0 [facility] [address], [place] [address]- 1933 Apr, [facility] [address] [place] [address] 19367 -0928 Apr, Abdominal pain R10.9 [facility] [id number] [place] [address] 30496- 4104 10 Apr, 2015 [facility] [address] 92460- 1576 04 Apr, 2015 Osteoarthritis of right knee M17.9 [facility] [address] 57875- 1094 Mar, [facility] [address] 61210- 4899 Mar, [facility] [address] 43135- 9054 Mar, [place] [address] 79858- 6097 Mar, [facility] [address] 98632 -0798 Mar, Pyelonephritis N12 ; Left-sided thoracic back pain M54.6 ; Hematuria, unspecified R31.9 and Kidney stone N20.0 [place] [address] 09073- 9246 Mar, History of weight loss surgery Z98.84 [place] [address] [id number] [place] [address] 17249- 5235 Mar, History of weight loss surgery Z98.84 and Hyperlipidemia, unspecified E78.5 [place] [id number] [place] [address] 20591- 4324 Mar, Low back pain M54.5 ; Chronic prescription opiate use Z79.899 ; Hyperlipidemia, unspecified E78.5 ; Spasm of back muscles M62.830 and History of weight loss surgery Z98.84 [facility] [id number] [place] [address] 58337- 9207 Jan, [place] [address] 22292- 9872 Jan, [facility] [address], [place] [address]- 1867 Jan, [facility] [address] 6897 Dec, [facility] [address] 1849 Dec, [facility] [id number] [place] [address] 739039- 8675 Dec, [facility] [address] [place] [address] 510548- 9571 Nov, [facility] [address] [place] [address] 77647- 8006 Nov, Obstructive sleep apnea syndrome G47.33 and Pharyngoesophageal dysphagia R13.14 [facility] [id number] [place] [address] 25298- 1325 Nov, [facility] [address] [place] [address] 55201- 0713 Nov, [facility] [address] [place] [address] 43053- 7896 Nov, [facility] [address] [address] 30 Oct, 2014 Dental examination V72.2 [facility] [address], [place] [address]- 5131 Oct, [facility] [address], [place] [address]- 7733 Oct, [facility] [id number] [place] [address] 08953- 6068 23 Oct, 2014 [facility] [address]- 2402 17 Oct, 2014 [facility] [address] [place] [address] 82207- 0067 Oct, BPH (benign prostatic hyperplasia) 600.00 and Urinary frequency 788.41 [facility] [id number] [place] [address] 93073- 6865 Oct, [facility] [id number] [place] [address] 90703- 4896 Oct, [facility] [id number] [place] [address] 10198- 3474 Oct, [facility] [id number] [place] [address] 38101- 9688 Sep, Cerumen impaction 380.4 ; Cerumen debris on tympanic membrane 380.4 ; Psoriasis 696.1 and MICKY (secretory otitis media) 381.4 [facility] [id number] [place] [address] [id number] Sep, Dental examination V72.2 [facility] [id number] [place] [address] 81214- 2037 Sep, Fatigue 780.79 ; Irritable bowel syndrome 564.1 ; Overweight 278.02 ; Poor sleep V69.4 ; Shaking spells 781.0 and Broken tooth 873.63 [facility] [address] [place] [address] 96310- 2038 Sep, [facility] [address] [place] [address] 26131- 0000 Sep, [facility] [id number] [place] [address] 46137- 1836 Aug, [facility] [address] [place] [address] 05192- 7021 Jul, [facility] [id number] [place] [address] 56243- 8478 Jul, [facility] [address] [place] [address] 64450- 7893 Jul, [facility] [id number] [place] [address]- 7562 Jul, [facility] [address] [id number] [place] [address]- 2691 June, Arthritis of knee, right 716.96 [facility] [address] [id number] [place] [address]- 4448 June, [facility] [address] [id number] [place] [address]- 0054 June, Elevated blood pressure reading without diagnosis of hypertension 796.2 [facility] [address] [id number] [place] [address]- 3542 June, [facility] [address] [id number] [place] [address]- 4648 June, [facility] [address] [place] [id number] [place] [address]- 2579 June, [facility] [address] [id number] [place] [address]- 6910 June, [facility] [address] [id number] [place] [address]- 0326 May, [facility] [address] [id number] [place] [address]- 4442 May, [facility] [address] [id number] [place] [address]- 0905 Apr, [facility] [address] [id number] [place] [address]- 4114 Apr, [facility] [address] [id number] [place] [address]- 1482 Apr, [facility] [address] [id number] [place] [address]- 7214 Apr, [facility] [address] [id number] [place] [address]- 3267 Apr, [facility] [address] [id number] [place] [address]- 7553 Apr, 2014 [facility] [place] [facility] [address] [id number] [place] [address]- 8457 Apr, 2014 [facility] [place] [facility] [address] [id number] [place] [address]- 4580 Apr, 2014 [facility] [place] [facility] [address] [id number] [place] [address]- 9290 Apr, 2014 [facility] [place] [facility] [address] [id number] [place] [address]- 7321 Apr, 2014 [facility] [place] [facility] [address] [id number] [place] [address]- 8400 Apr, 2014 [facility] [place] [facility] [address] [facility] [id number] [place] [address]- 2374 Apr, 2014 [facility] [place] [facility] [address] [facility] [id number] [place] [address]- 3038 Apr, 2014 [facility] [place] [facility] [address] [id number] [place] [address]- 2050 Apr, 2014 [facility] [place] [facility] [address] [facility] [id number] [place] [address]- 1026 Apr, 2014 [facility] [place] [facility] [address] [facility] [id number] [place] [address]- 6210 Apr, 2014 [facility] [place] [facility] [address] [facility] [id number] [address]- 9213 Apr, 2014 [facility] [place] [facility] [address] [facility] [id number] [place] [address]- 5625 Apr, 2014 [facility] [place] [facility] [address] [facility] [id number] [place] [address]- 6880 Apr, 2014 [facility] [place] [facility] [address] [facility] [id number] [place] [address]- 2450 Apr, 2014 [facility] [place] [facility] [address] [facility] [id number] [place] [address]- 4877 Apr, 2014 [facility] [place] [facility] [address] [id number] [place] [address]- 0826 Apr, 2014 [facility] [place] [facility] [address] [id number] [place] [address]- 7256 Apr, 2014 [facility] [place] [facility] [address] [facility] [id number] [place] [address] Apr, 2014 [facility] [place] [facility] [address] [id number] [place] [address] Apr, 2014 [facility] [place] [facility] [address] [id number] [place] [address] Apr, 2014 [facility] [place] [facility] [address] [facility] [id number] [place] [address] Apr, 2014 [facility] [place] [facility] [address] [id number] [place] [address] Apr, 2014 [facility] [place] [facility] [address] [facility] [id number] [place] [address] Apr, 2014 [facility] [place] [facility] [address] [facility] [id number] [place] [address] Apr, 2014 [facility] [place] [facility] [address] [facility] [id number] [place] [address] Apr, 2014 [facility] [place] [facility] [address] [facility] [id number] [place] [address] Apr, 2014 [facility] [place] [facility] [address] [facility] [id number] [place] [address] Apr, 2014 [facility] [place] [facility] [address] [facility] [id number] [place] [address] Mar, [facility] [place] [facility] [address] [facility] [id number] [place] [address] Mar, [facility] [place] [facility] [address] [facility] [id number] [place] [address] Mar, [facility] [place] [facility] [address] [id number] [place] [address] Mar, [facility] [place] [facility] [address] [id number] [place] [address] Mar, [facility] [place] [facility] [address] [id number] [place] [address] Mar, [facility] [place] [facility] [address] [id number] [place] [address] Mar, [facility] [place] [facility] [address] [id number] [place] [address] Mar, [facility] [place] [facility] [address] [id number] [place] [address] Mar, [facility] [place] [facility] [address] [id number] [place] [address] Mar, [facility] [place] [facility] [address] [id number] [place] [address] Jan, [facility] [place] [facility] [address] [id number] [place] [address] Jan, [facility] [place] [facility] [address] [id number] [place] [address] Jan, [facility] [place] [facility] [address] [id number], [place] [address] Jan, [facility] [place] [facility] [address] [id number], [place] [address] Jan, [facility] [place] [facility] [address] [id number] [place] [address] 3596 Jan, [facility] [place] [facility] [address] [id number] [place] [address] 5693 Jan, [facility] [place] [facility] [address] [id number] [place] [address] 9258 Jan, [facility] [place] [facility] [address] [id number] [place] [address]- 7396 05 Jan, 2014 [facility] [place] [facility] [address] [id number] [place] [address]- 4611 05 Jan, 2014 [facility] [place] [facility] [address] [id number] [place] [address]- 2426 Jan, [facility] [place] [facility] [address] [id number] [place] [address] 3063 Jan, [facility] [place] [facility] [address] [id number] [place] [address]- 0385 Dec, [facility] [place] [facility] [address] [id number] [place] [address]- 4535 Dec, [facility] [place] [facility] [address] [id number] [place] [address]- 5328 Dec, [facility] [place] [facility] [address] [id number] [place] [address]- 1155 Dec, [facility] [place] [facility] [address] [id number] [place] [address]- 2789 Dec, [facility] [place] [facility] [address] [id number] [place] [address]- 4808 Dec, [facility] [place] [facility] [address] [facility] [id number] [place] [address]- 6611 Dec, [facility] [place] [facility] [address] [id number] [place] [address]- 5349 Dec, [facility] [place] [facility] [address] [id number] [place] [address]- 1797 Dec, [facility] [place] [facility] [address] [id number] [place] [address]- 9799 Dec, [facility] [place] [facility] [address] [id number] [place] [address]- 8325 Nov, [facility] [place] [facility] [address] [id number] [place] [address]- 7850 Nov, [facility] [place] [facility] [address] [id number] [place] [address]- 1056 Nov, 2013 [facility] [place] [facility] [address] [id number] [place] [address]- 1751 Nov, [facility] [place] [facility] [address] [id number] [place] [address]- 4908 Nov, [facility] [place] [facility] [address] [id number] [place] [address]- 4671 Nov, [facility] [place] [facility] [address] [id number] [place] [address]- 8686 Nov, [facility] [place] [facility] [address] [id number] [place] [address]- 9256 Nov, [facility] [place] [facility] [address] [id number] [place] [address]- 8998 Nov, [facility] [place] [facility] [address] [id number] [place] [address]- 9858 Nov, [facility] [place] [facility] [address] [id number] [place] [address]- 5589 Nov, [facility] [place] [facility] [address] [id number] [place] [address]- 6073 17 Nov, 2013 [facility] [place] [facility] [address] [id number] [place] [address]- 2708 14 Nov, 2013 [facility] [place] [facility] [address] [id number] [place] [address]- 2231 14 Nov, 2013 [facility] [place] [facility] [address] [id number] [place] [address]- 5573 10 Nov, 2013 [facility] [place] [facility] [address] [id number] [place] [address]- 6030 10 Nov, 2013 [facility] [place] [facility] [address] [id number] [place] [address]- 9205 08 Nov, 2013 [facility] [place] [facility] [address] [id number], [place] [address]- 5880 Nov, [facility] [place] [facility] [address] [id number] [place] [address]- 1461 Nov, [facility] [place] [facility] [address] [id number] [place] [address]- 7445 Nov, [facility] [place] [facility] [address] [id number] [place] [address]- 8674 Oct, [facility] [place] [facility] [address] [id number] [place] [address]- 3110 Oct, [facility] [place] [facility] [address] [id number] [place] [address]- 3905 Oct, [facility] [place] [facility] [address] [id number] [place] [address]- 4575 Oct, [facility] [place] [facility] [address] [id number] [place] [address]- 3176 Oct, [facility] [place] [facility] [address] [id number] [place] [address]- 1234 Oct, [facility] [place] [facility] [address] [id number] [place] [address]- 8653 Oct, [facility] [place] [facility] [address] [id number] [place] [address]- 3323 Oct, [facility] [place] [facility] [address] [id number] [place] [address]- 6394 Oct, [facility] [place] [facility] [address] [id number] [place] [address]- 8441 Oct, [facility] [place] [facility] [address] [id number] [place] [address]- 1163 Sep, [facility] [place] [facility] [address] [id number] [place] [address]- 6679 Sep, [facility] [place] [facility] [address] [id number] [place] [address]- 1059 Sep, [facility] [place] [facility] [address] [id number] [place] [address]- 8480 Sep, [facility] [place] [facility] [address] [id number] [place] [address]- 7834 Sep, [facility] [place] [facility] [address] [id number] [place] [address]- 7567 Sep, [facility] [place] [facility] [address] [id number] [place] [address]- 4895 Sep, [facility] [place] [facility] [address] [id number] [place] [address]- 6705 Sep, [facility] [place] [facility] [address] [id number] [place] [address]- 1607 Sep, [facility] [place] [facility] [address] [id number] [place] [address]- 4508 Sep, [facility] [place] [facility] [address] [id number] [place] [address]- 4540 Sep, [facility] [place] [facility] [address] [id number] [place] [address]- 8785 Sep, [facility] [place] [facility] [address] [id number] [place] [address]- 8032 Sep, [facility] [place] [facility] [address] [id number] [place] [address]- 7746 Sep, [facility] [place] [facility] [address] [id number] [place] [address]- 2688 Sep, [facility] [place] [facility] [address] [id number] [place] [address]- 5936 Sep, [facility] [place] [facility] [address] [id number] [place] [address]- 8386 Sep, [facility] [place] [facility] [address] [id number] [place] [address]- 2239 Sep, [facility] [place] [facility] [address] [id number] [place] [address]- 2038 Sep, [facility] [place] [facility] [address] [id number] [place] [address]- 8589 Sep, [facility] [place] [facility] [address] [id number] [place] [address]- 1909 Sep, [facility] [place] [facility] [address] [id number] [place] [address]- 9946 Sep, [facility] [place] [facility] [address] [id number] [place] [address]- 6790 Sep, [facility] [place] [facility] [address] [id number] [place] [address]- 4312 Sep, [facility] [place] [facility] [address] [id number] [place] [address]- 3084 Sep, [facility] [place] [facility] [address] [id number] [place] [address]- 0016 Aug, [facility] [place] [facility] [address] [id number] [place] [address]- 7946 Aug, [facility] [place] [facility] [address] [id number] [place] [address]- 7668 Aug, [facility] [place] [facility] [address] [id number] [place] [address]- 8221 Aug, [facility] [place] [facility] [address] [id number] [place] [address]- 6309 Aug, [facility] [place] [facility] [address] [id number] [place] [address]- 0531 Aug, [facility] [place] [facility] [address] [id number] [place] [address]- 3808 Aug, [facility] [place] [facility] [address] [id number] [place] [address]- 9628 Aug, [facility] [place] [facility] [address] [id number] [place] [address]- 7735 Aug, [facility] [place] [facility] [address] [id number] [place] [address]- 0791 Aug, [facility] [place] [facility] [address] [id number] [place] [address]- 1263 Aug, [facility] [place] [facility] [address] [id number] [place] [address]- 2065 Aug, [facility] [place] [facility] [address] [id number] [place] [address]- 7914 Aug, [facility] [place] [facility] [address] [id number] [place] [address]- 9558 Jul, [facility] [place] [facility] [address] [id number] [place] [address]- 0906 Jul, [facility] [place] [facility] [address] [id number] [place] [address]- 6330 Jul, [facility] [place] [facility] [address] [id number] [place] [address]- 3448 Jul, [facility] [place] [facility] [address] [id number] [place] [address]- 7273 Jul, [facility] [place] [facility] [address] [id number] [place] [address]- 8200 Jul, [facility] [place] [facility] [address] [id number] [place] [address]- 9161 Jul, [facility] [place] [facility] [address] [id number] [place] [address]- 8463 June, [facility] [place] [facility] [address] [id number] [place] [address]- 5031 June, [facility] [place] [facility] [address] [id number] [place] [address]- 9308 June, [facility] [place] [facility] [address] [id number] [place] [address]- 4787 June, [facility] [place] [facility] [address] [id number] [place] [address]- 2775 May, [facility] [place] [facility] [address] [id number] [place] [address]- 0137 May, [facility] [place] [facility] [address] [id number] [place] [address]- 0075 May, [facility] [place] [facility] [address] [id number] [place] [address]- 2933 May, [facility] [place] [facility] [address] [id number] [place] [address]- 7041 May, [facility] [place] [facility] [address] [id number] [place] [address]- 8291 May, [facility] [place] [facility] [address] [id number] [place] [address]- 6227 May, [facility] [place] [facility] [address] [id number] [place] [address]- 3453 May, [facility] [place] [facility] [address] [id number] [place] [address]- 8004 May, [facility] [place] [facility] [address] [id number] [place] [address]- 2845 May, [facility] [place] [facility] [address] [id number] [place] [address]- 3410 Apr, [facility] [place] [facility] [address] [id number] [place] [address]- 4387 Apr, [facility] [place] [facility] [address] [id number] [place] [address]- 1313 Apr, [facility] [place] [facility] [address] [id number] [place] [address]- 2674 Apr, [facility] [place] [facility] [address] [id number] [place] [address]- 4805 Apr, [facility] [place] [facility] [address] [id number] [place] 6389 Apr, [facility] [place] [facility] [address] [id number] [place] [address]- 3651 Apr, [facility] [address] [id number] [place] [address]- 3433 Apr, [facility] [place] [facility] [address] [id number] [place] [address]- 0621 Apr, [facility] [place] [facility] [address] [id number] [place] [address]- 3156 Apr, [facility] [place] [facility] [address] [id number] [place] [address]- 0915 Mar, [facility] [place] [facility] [address] [id number] [place] [address]- 1036 Mar, [facility] [address] [id number] [place] [address]- 3654 Mar, [facility] [address] [id number] [place] [address]- 8169 Mar, [facility] [place] [facility] [address] [id number] [place] [address]- 9148 Mar, [facility] [address] [id number] [place] [address]- 4756 Mar, [facility] [place] [facility] [address] [facility] [id number] [place] [address]- 4312 Jan, [facility] [place] [facility] [address] [id number] [place] [address]- 5305 Jan, [facility] [place] [facility] [address] [id number], [place] [address]- 5043 Jan, [facility] [place] [facility] [address] [id number] [place] [address]- 5152 Jan, [facility] [place] [facility] [address] [id number] [place] [address]- 8316 Jan, [facility] [place] [facility] [address] [id number] [place] [address]- 1246 Jan, [facility] [place] [facility] [address] [id number] [place] [address]- 5412 Jan, [facility] [address] [id number] [place] [address]- 1265 Jan, [facility] [place] [facility] [address] [id number] [place] 2689 Jan, [facility] [place] [facility] [address] [id number] [place] [address]- 6036 Dec, [facility] [place] [facility] [address] [id number] [place] [address]- 5091 Dec, [facility] [place] [facility] [address] [id number] [place] [address]- 1530 Dec, [facility] [place] [facility] [address] [id number] [place] [address]- 7859 Dec, [facility] [place] [facility] [address] [id number] [place] [address]- 4558 Dec, [facility] [address] [id number] [place] [address]- 2951 Dec, [facility] [place] [facility] [address] [id number] [place] [address]- 9917 Dec, [facility] [place] [facility] [address] [facility] [id number] [place] [address]- 9294 Dec, [facility] [place] [facility] [address] [id number] [place] [address]- 8476 Dec, [facility] [place] [facility] [address] [id number] [place] [address]- 8340 Dec, [facility] [place] [facility] [address] [id number] [place] [address]- 2917 Dec, [facility] [place] [facility] [address] [id number] [place] [address]- 1976 Nov, [facility] [place] [facility] [address] [id number] [place] [address]- 1765 Nov, [facility] [address] [id number] [place] [address]- 2137 Nov, [facility] [place] [facility] [address] [id number] [place] [address]- 9119 Nov, [facility] [place] [facility] [address] [id number] [place] [address]- 0560 Nov, [facility] [place] [facility] [address] [id number] [place] [address]- 0747 Oct, [facility] [place] [facility] [address] [id number] [place] [address]- 9503 Oct, [facility] [place] [facility] [address] [id number] [place] [address]- 6074 Sep, [facility] [place] [facility] [address] [id number] [place] [address]- 5718 Aug, [facility] [place] [facility] [address] [id number] [place] [address]- 9766 Aug, [facility] [place] [facility] [address] [id number] [place] [address]- 9086 Aug, [facility] [place] [facility] [address] [id number], [place] [address]- 7626 Aug, [facility] [place] [facility] [address] [id number] [place] [address]- 3917 Jul, [facility] [place] [facility] [address] [id number], [place] [address]- 9644 Jul, [facility] [place] [facility] [address] [id number] [place] [address]- 4306 June, [facility] [place] [facility] [address] [id number] [place] [address]- 8211 June, [facility] [place] [facility] [address] [id number] [place] [address]- 4658 June, [facility] [place] [facility] [address] [id number] [place] [address]- 3018 08 May, 2012 [facility] [address] [id number] [place] [address]- 9705 04 May, 2012 [facility] [place] [facility] [address] [facility] [id number] [place] [address]- 6520 May, [facility] [address] [facility] [id number] [place] [address]- 8363 18 Apr, 2012 [facility] [place] [facility] [address] [facility] [id number] [place] [address]- 4083 18 Apr, 2012 [facility] [address] [id number] [place] [address]- 5584 15 Apr, 2012 [facility] [place] [facility] [address] [facility] [id number] [place] [address]- 1490 14 Apr, 2012 [facility] [address] [id number] [place] [address]- 9163 12 Apr, 2012 [facility] [place] [facility] [address] [facility] [id number] [place] [address]- 5493 27 Apr, 2012 [facility] [place] [facility] [id number] [place] [address]- 8599 25 Apr, 2012 [facility] [place] [facility] [address] [id number] [place] [address]- 1112 25 Apr, 2012 [facility] [place] [facility] [id number] [place] [address]- 0367 21 Apr, 2012 [facility] [place] [facility] [address] [facility] [id number] [place] [address]- 8676 20 Apr, 2012 [facility] [place] [facility] [address] [facility] [id number] [place] 1958 19 Apr, 2012 [facility] [place] [facility] [address] [facility] [id number] [place] [address]- 8937 07 Apr, 2012 [facility] [place] [facility] [id number] [place] [address]- 2971 07 Apr, 2012 [facility] [address] [id number] [place] [address]- 4615 Mar, [facility] [place] [facility] [address] [id number] [place] [address]- 9939 Mar, [facility] [address] [id number] [place] [address]- 5371 Mar, [facility] [place] [facility] [address] [id number] [place] [address]- 4034 Mar, [facility] [address] [id number] [place] [address]- 8569 Mar, [facility] [address] [id number] [place] [address]- 5293 Jan, [facility] [address] [id number] [place] [address]- 0194 Jan, [facility] [address] [id number] [place] [address]- 4590 Jan, [facility] [address] [id number] [place] [address]- 8431 Jan, [facility] [address] [id number] [place] [address]- 2629 14 Jan, 2012 [facility] [place] [facility] [address] [id number] [place] [address]- 8337 Jan, [facility] [place] [facility] [address] [id number] [place] [address]- 5275 13 Jan, 2012 [facility] [place] [facility] [address] [id number] [place] [address]- 1414 11 Jan, 2012 [facility] [place] [facility] [address] [id number] [place] [address]- 7726 06 Jan, 2012 [facility] [place] [facility] [address] [id number] [place] [address]- 3054 06 Jan, 2012 [facility] [place] [facility] [address] [id number] [place] [address]- 4052 04 Jan, 2012 [facility] [place] [facility] [address] [id number] [place] [address]- 8118 04 Jan, 2012 [facility] [place] [facility] [address] [id number] [place] [address]- 8305 Jan, [facility] [place] [facility] [address] [id number] [place] [address]- 7647 Jan, [facility] [place] [facility] [address] [id number] [place] [address]- 0946 26 Jan, 2012 [facility] [place] [facility] [address] [id number] [place] [address] 26 Jan, 2012 [facility] [place] [facility] [address] [id number] [place] [address] Dec, [facility] [place] [facility] [address] [id number] [place] [address] 19 Jan, 2012 [facility] [place] [facility] [address] [id number] [place] [address]693 15 Jan, 2012 [facility] [place] [facility] [address] [id number] [place] [address] 6543 15 Jan, 2012 [facility] [place] [facility] [address] [facility] [id number] [place] [address] 14 Jan, 2012 [facility] [place] [facility] [address] [id number] [place] [address] 1169 14 Jan, 2012 [facility] [place] [facility] [address] [id number], [place] [address] 14 Jan, 2012 [facility] [place] [facility] [address] [id number] [place] [address] 3815 14 Jan, 2012 [facility] [place] [facility] [address] [id number] [place] [address] 07 Jan, 2012 [facility] [place] [facility] [address] [facility] [id number], [place] [address] 07 Jan, 2012 [facility] [place] [facility] [address] [id number] [place] [address] 7948 16 Dec, 2011 [facility] [place] [facility] [address] [id number] [place] [address]- 1642 16 Dec, 2011 [facility] [place] [facility] [address] [id number] [place] [address]336 13 Nov, 2011 [facility] [place] [facility] [address] [id number] [place] [address]- 6786 13 Nov, 2011 [facility] [place] [facility] [address] [id number] [place] [address] 13 Nov, 2011 [facility] [place] [facility] [address] [id number] [place] [address] 4685 Oct, [facility] [place] [facility] [address] [id number] [place] [address]482 Sep, [facility] [place] [facility] [address] [id number] [place] [address]160 Sep, [facility] [place] [facility] [address] [id number] [place] [address] 6784 Aug, [facility] [place] [facility] [address] [id number] [place] [address]- [address]369 Aug, [facility] [place] [facility] [address] [id number] [place] [address] 9896 Aug, [facility] [place] [facility] [address] [id number] [place] [address]12 Aug, [facility] [place] [facility] [address] [id number] [place] June, [facility] [place] [facility] [address] [id number] [place] [address] 8748 June, [facility] [place] [facility] [address] [id number] [place] [address] May, [facility] [place] [facility] [address] [id number] [place] [address] 8892 Apr, [facility] [address] [id number] [place] [address] 1667 Apr, [facility] [place] [facility] [address] [id number] [place] [address] 6777 Apr, [facility] [place] [facility] [address] [id number] [place] [address]160 Apr, [facility] [place] [facility] [address] [id number] [place] [address]013 Apr, [facility] [place] [facility] [address] [id number] [place] [address]- 9488 Apr, [facility] [place] [facility] [address] [id number] [place] [address] 4342 Mar, [facility] [place] [facility] [address] [id number] [place] [address] 7998 Mar, [facility] [place] [facility] [address] [id number] [place] [address] 9447 Mar, [facility] [place] [facility] [address] [id number] [place] [address] 58[address] Jan, [facility] [place] [facility] [address] [id number] [place] [address] 8176 Jan, [facility] [place] [facility] [address] [id number] [place] [address] 5604 Jan, [facility] [place] [facility] [address] [id number] [place] [address] 6637 Jan, [facility] [place] [facility] [address] [id number] [place] [address] 8756 Jan, [facility] [place] [facility] [address] [id number] [place] [address] Jan, [facility] [place] [facility] [address] [id number] [place] [address] 8449 Jan, [facility] [place] [facility] [address] [id number] [place] [address] 6439 Dec, [facility] [place] [facility] [address] [id number] [place] [address]- 2994 Dec, [facility] [place] [facility] [address] [id number] [place] [address]807 Nov, [facility] [place] [facility] [address] [id number] [place] [address] 4700 Nov, [facility] [place] [facility] [address] [id number] [place] [address]- 0829 Nov, [facility] [place] [facility] [address] [id number] [place] [address], [place] [address]- [address]96 Nov, [facility] [place] [facility] [address] [id number] [place] [address]- 1122 Oct, [facility] [place] [facility] [address] [id number] [place] [address]- 2620 Sep, [facility] [place] [facility] [address] [id number] [place] [address] 8883 Mar, [facility] [place] [facility] [address] [id number] [place] [address] 0011 Jan, [facility] [place] [facility] [address] [id number] [place] [address] 8939 Dec, [facility] [place] [facility] [address] [id number] [place] [address]- 4856 Dec, [facility] [place] [facility] [address] [id number] [place] [address]- 9460 Dec, [facility] [place] [facility] [address] [id number] [place] [address]- 5031 Dec, [facility] [place] [facility] [address] [id number] [place] [address] 7844 Nov, [facility] [place] [facility] [address] [id number] [place] [address] 15 Nov, 2009 [facility] [address] [id number] [place] [address]- 5275 14 Nov, 2009 [facility] [place] [facility] [address] [id number] [place] [address]- 3439 14 Nov, 2009 [facility] [place] [facility] [address] [id number] [place] [address]- 3843 13 Oct, 2009 [facility] [place] [facility] [address] [id number] [place] [address]- 3302 17 Jul, 2009 [facility] [place] [facility] [address] [id number] [place] [address]- 4907 June, [facility] [place] [facility] [address] [id number] [place] [address] 0647 June, [facility] [place] [facility] [address] [id number] [place] [address]- 5655 17 Apr, 2009 [facility] [place] [facility] [address] [id number], [place] [address] Mar, [facility] [place] [facility] [address] [id number] [place] [address]- 8599 24 Jan, 2009 [facility] [place] [facility] [address] [id number], [place] [address] 8521 Jan, [facility] [place] [facility] [address] [id number], [place] [address]- 4785 27 Dec, 2008 [facility] [place] [facility] [address] [id number], [place] [address]- 2795 25 Dec, 2008 [facility] [place] [facility] [address] [id number] [place] [address]- 7313 13 Dec, 2008 [facility] [place] [facility] [address] [id number], [place] [address]- 5662 13 Dec, 2008 [facility] [place] [facility] [address] [id number] [place] [address] 30 Nov, 2008 [facility] [place] [facility] [address] [id number] [place] [address]- 4468 Jul, [facility] [address] [facility] [id number] [place] [id number] June, IMMUNIZATIONS No Known Immunizations SOCIAL HISTORY Never Assessed REASON FOR VISIT Refill request PLAN OF CARE VITAL SIGNS MEDICATIONS Medication Instructions Dosage Frequency Start Date End Date Duration Status Diclofenac Sodium 75 MG Orally 2 times a day 1 tablet with food or milk 12h 90 days Active Duloxetine HCl 60 MG Orally Once a day 1 capsule 24h 14 Dec, 2015 90 day(s) Active RESULTS No Results PROCEDURES No Known procedures INSTRUCTIONS MEDICATIONS ADMINISTERED No Known Medications MEDICAL (GENERAL) HISTORY Type Description Date Medical History hypertension Medical History sleep apnea-did not tolerate CPAP Medical History oxygen dependent at [facility] Medical History colonic polyps Medical [...]
--- OUTSIDE RECORDS SUMMARY | 2018-02-26 19:18 | XMS REPORT ---
Author Author GRAHAM CHRIS [facility] Address [address] [place] [address] Care Team Providers Care Residential Sales Manager Name Role Phone GRAHAMLIBBY HANNAY Unavailable PROBLEMS Type Condition ICD9-CM Code AOL44-KL Code Onset Dates Condition Status SNOMED Code Problem Pulmonary asbestosis J61 Active 98361313 Problem Left ventricular diastolic dysfunction I51.9 Active 530124569 Problem Chronic gout, unspecified cause, unspecified site M1A.[id number] Active 31852008 Problem Renal cyst, left N28.1 Active 30790984 Problem History of weight loss surgery Z98.84 Active 583492328 Problem Nocturnal hypoxia G47.34 Active 729611294 Problem Obstructive sleep apnea syndrome G47.33 Active 37302679 Problem History of diverticulitis Z87.19 Active 185684522169031 Problem Allergic rhinitis, unspecified allergic rhinitis type J30.9 Active 70801563 Problem Erectile dysfunction due to diseases classified elsewhere N52.1 Active 599159948 Problem Acute right-sided low back pain with right-sided sciatica M54.41 Active 513233947 Problem Psoriasis L40.9 Active 4838275 Problem Essential hypertension I10 Active 63868720 Problem Nephrolithiasis N20.0 Active 36977956 Problem Chronic prescription opiate use Z79.899 Active 437046616 Problem 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 Active 02613952 Problem Benign prostatic hyperplasia, presence of lower urinary tract symptoms unspecified, unspecified morphology N40.0 Active 495919625 Problem Moderate episode of recurrent major depressive disorder F33.1 Active 907745011 Problem Age-related osteoporosis without current pathological fracture M81.0 Active 12337121 Problem Low back pain M54.5 Active 066190552 Problem Anxiety F41.9 Active 23083687 Problem Urge incontinence N39.41 Active 555913299 Problem Hyperlipidemia, unspecified E78.5 Active 33181629 Problem Esophageal stricture K22.2 Active 69306395 Problem Cervicalgia M54.2 Active 5301064670572 Problem Primary insomnia F51.01 Active 065161903 ALLERGIES No Information ENCOUNTERS Encounter Location Date Diagnosis [facility] [id number] [place] [address] 41558- 5843 June, [facility] [id number] [place] [address] 00464- 8177 Apr, Anxiety F41.9 [facility] [address] 68656- 8099 Apr, [facility] [address] 94160- 7748 Apr, Low back pain M54.5 [facility] [id number] [place] [address] 98870- 6695 Apr, [facility] [id number] [place] [address] 00460- 8586 Apr, [facility] [id number] [place] [address] 04645- 7125 Apr, Anxiety F41.9 [facility] [id number] [place] [address] 81924- 8483 Apr, Right groin pain R10.31 [facility] [id number] [place] [address] 37831- 4149 Mar, [facility] [id number] [place] [address] 31712- 6268 Mar, [facility] [id number] [place] [address] 76047- 5121 Mar, Anxiety F41.9 [facility] [id number] [place] [address] 41816- 9479 Mar, Low back pain M54.5 [facility] [id number] [place] [address] 36379- 9569 Mar, Right groin pain R10.31 ; Low back pain M54.5 and BMI 45.0- 49.9, adult Z68.42 [facility] [id number] [place] [address] 58688- 3484 Mar, [facility] [id number] [place] [address] 15017- 8154 Mar, [facility] [id number] [place] [address] 53579- 1610 Mar, [facility] [address] 75743 -8297 Mar, [facility] [id number] [place] [address] 29818 -7651 Mar, Cough R05 ; Pneumonia of right lower lobe due to infectious organism J18.1 and Abnormal chest x-ray R93.8 [facility] [id number] [place] [address] 85557- 9373 Mar, [facility] [id number] [place] [address] 04589- 6014 Mar, [facility] [id number] [place] [address] 58877- 0649 Jan, Anxiety F41.9 [facility] [id number] [place] [address] 20003- 4676 Jan, [facility] [id number] [place] [address] 57626- 8617 Jan, Moderate episode of recurrent major depressive disorder F33.1 [facility] [id number] [place] [address] 61205- 0300 Jan, Subacromial bursitis of right shoulder joint M75.51 ; Shortness of breath on exertion R06.02 and BMI 45.0-49.9, adult Z68.42 [facility] [id number] [place] [address] 61226- 5110 Dec, Anxiety F41.9 [facility] [address] [place] [address]- 8911 Dec, [facility] [id number] [place] [address] 15719- 2215 Dec, Low back pain M54.5 [facility] [id number] [place] [address] 52094- 1138 Oct, Low back pain M54.5 [facility] [id number] [place] [address] 68244- 9845 Sep, [facility] [id number] [place] [address] 94135- 1354 Sep, Erectile dysfunction due to diseases classified elsewhere N52.1 [facility] [id number] [place] [address] 18853- 0631 Sep, Erectile dysfunction due to diseases classified elsewhere N52.1 [facility] [id number] [place] [address] 35928- 8558 Sep, [facility] [id number] [place] [address] 64318- 6173 Sep, Erectile dysfunction due to diseases classified elsewhere N52.1 [facility] [id number] [place] [address] 15041- 2842 Sep, Low back pain M54.5 and Anxiety F41.9 [facility] [id number] [place] [address] 94657 -0599 Aug, Acute allergic rhinitis J30.9 [facility] [id number] [place] [address] 26653- 8121 Aug, [facility] [id number] [place] [address] 76953- 8591 05 Aug, [address] [facility] [id number] [place] [address] 42252- 9944 15 Jul, 2016 Low back pain M54.5 ; Chronic prescription opiate use Z79.899 and Essential hypertension I10 [facility] [id number] [place] [address] 15401- 4559 Jul, Anxiety F41.9 and Low back pain M54.5 [facility] [id number] [place] [address] 63940- 1406 June, [facility] [id number] [place] [address] 78461- 4636 June, Anxiety F41.9 [facility] [id number] [place] [address] 88314- 6916 May, Low back pain M54.5 [facility] [id number] [place] [address] 14803- 9696 May, [facility] [id number] [place] [address] 66573- 0141 May, Anxiety F41.9 [facility] [id number] [place] [address] 53625- 8345 Apr, [facility] [id number] [place] [address] 07211- 5266 Apr, Low back pain M54.5 [facility] [id number] [place] [address] 01117 2545 Apr, Moderate episode of recurrent major depressive disorder F33.1 [facility] [id number] [place] [address] 39107- 2456 Apr, Anxiety F41.9 [facility] [id number] [place] [address] 19493- 4943 Apr, Low back pain M54.5 [facility] [id number] [place] [address] 05355- 5496 15 Apr, 2016 Elevated alkaline phosphatase level R74.8 [facility] [id number] [place] [address] 15873- 1236 10 Apr, 2016 Alkaline phosphatase elevation R74.8 [facility] [id number] [place] [address] 05921- 1392 06 Apr, 2016 Anxiety F41.9 [facility] [address] 87704- 0370 03 Apr, 2016 Low back pain M54.5 [facility] [id number] [place] [address] 79113- 2745 03 Apr, 2016 History of weight loss surgery Z98.84 ; Encounter for hepatitis C screening test for low risk patient Z11.59 ; History of herpes genitalis Z86.19 ; Essential hypertension I10 ; Hyperlipidemia, unspecified E78.5 ; Exposure to STD Z20.2 and Benign prostatic hyperplasia, presence of lower urinary tract symptoms unspecified, unspecified morphology N40.0 [facility] [id number] [place] [address] 54688- 3439 02 Apr, 2016 [facility] [id number] [place] [address] 62993- 4885 Mar, [facility] [id number] [place] [address] 57140- 2266 Mar, [facility] [id number] [place] [address] 99660- 3862 Mar, [facility] [id number] [place] [address] 63076- 4209 Mar, Acute right-sided low back pain with right-sided sciatica M54.41 [facility] [id number] [place] [address] 00312- 4053 Mar, Low back pain M54.5 [facility] [id number] [place] [address] 47227 -8698 Mar, Muscle strain of chest wall, initial encounter S29.011A ; Muscle strain of right thigh, initial encounter S76.911A and Acute non- recurrent maxillary sinusitis J01.00 [facility] [id number] [place] [address] 84657- 9942 Mar, Benign prostatic hyperplasia, presence of lower urinary tract symptoms unspecified, unspecified morphology N40.0 [facility] [id number] [place] [address] 06677- 8891 Jan, Low back pain M54.5 [facility] [id number] [place] [address] 94088- 5531 Jan, Low back pain M54.5 ; Essential hypertension I10 ; Hyperlipidemia, unspecified E78.5 ; Anxiety F41.9 ; Moderate episode of recurrent major depressive disorder F33.1 ; Primary insomnia F51.01 ; Exposure to STD Z20.2 ; Encounter for hepatitis C screening test for low risk patient Z11.59 and History of herpes genitalis Z86.19 [facility] [address] 61605- 5656 17 Jan, 2016 [facility] [address] 92062- 2339 Nov, [facility] [address] 92377- 0460 14 Dec, 2015 Anxiety F41.9 ; Cervicalgia M54.2 ; Moderate episode of recurrent major depressive disorder F33.1 and Encounter for immunization Z23 [facility] [id number] [place] [address] 51410- 0886 Oct, [facility] [id number] [place] [address] 72469- 5260 Oct, [facility] [address] 04331- 0945 16 Nov, 2015 [facility] [id number] [place] [address] 14851- 6773 Oct, [facility] [id number] [place] [address] 76621- 5375 Sep, [facility] [id number] [place] [address] 28404- 0495 Aug, Low back pain M54.5 ; Anxiety F41.9 ; Primary insomnia F51.01 and Chronic prescription opiate use Z79.899 [facility] [id number] [address]- 1749 Jul, [facility] [address] [address]- 7402 Jul, [facility] [id number] [place] [address] 54920- 7389 Jul, [facility] [id number] [place] [address] 51893- 8831 Jul, [facility] [id number] [place] [address] 17059- 4428 Jul, [facility] [id number] [place] [address] 14138- 0593 June, [facility] [id number] [place] [address] 55910- 0790 June, [facility] [id number] [place] [address] 22535- 1954 June, [facility] [id number] [place] [address] 55114- 3504 June, [facility] [address] [address]- 6702 May, Preoperative cardiovascular examination Z01.810 [facility] [address] [address]- 9595 May, [facility] [address] [address]- 1868 Apr, [facility] [id number] [place] [address] 22627- 3172 Apr, Osteoarthritis of right knee M17.9 [facility] [address] [address]- 4498 Apr, [facility] [id number] [place] [address] 18921- 5634 16 May, 2015 [facility] [id number] [place] [address] 14084- 8929 Apr, [facility] [id number] [place] [address] 42380- 5836 Apr, [facility] [id number] [place] [address] 37328- 8639 Apr, History of excessive cerumen Z78.9 ; Obstructive sleep apnea syndrome G47.33 ; History of diverticulitis Z87.19 and Nephrolithiasis N20.0 [facility] [id number] [place] [address] 44120- 5948 29 Apr, 2015 [facility] [id number] [place] [address] 21638 -7333 Apr, Abdominal pain R10.9 [facility] [id number] [place] [address] 14437- 3268 Apr, [facility] [id number] [place] [address] 72592- 5123 04 Apr, 2015 Osteoarthritis of right knee M17.9 [facility] [id number] [place] [address] 57381- 9525 Mar, [facility] [id number] [place] [address] 88967- 7825 15 Mar, 2015 [facility] [id number] [place] [address] 10093- 3689 14 Mar, 2015 [facility] [id number] [place] [address] 46620- 6996 13 Mar, 2015 [facility] [id number] [place] [address] 44827 -7247 Mar, Pyelonephritis N12 ; Left-sided thoracic back pain M54.6 ; Hematuria, unspecified R31.9 and Kidney stone N20.0 [facility] [address] [place] [address]- 1085 Mar, History of weight loss surgery Z98.84 [facility] [id number] [place] [address] 99113 2540 Mar, 2016 History of weight loss surgery Z98.84 and Hyperlipidemia, unspecified E78.5 [facility] [id number] [place] [address] 73309- 4840 Mar, 2016 Low back pain M54.5 ; Chronic prescription opiate use Z79.899 ; Hyperlipidemia, unspecified E78.5 ; Spasm of back muscles M62.830 and History of weight loss surgery Z98.84 [facility] [id number] [place] [address] 28351- 1830 Jan, [facility] [id number] [place] [address] 79972- 6970 Jan, [facility] [address] 08966- 3925 Jan, [facility] [id number] [place] [address] 96579- 1304 Dec, [facility] [id number] [place] [address] 24115- 1177 Dec, [facility] [id number] [place] [address] 37412- 4330 Dec, [facility] [id number] [place] [address] 45762- 6279 Nov, [facility] [id number] [place] [address] 05980- 9560 Nov, Obstructive sleep apnea syndrome G47.33 and Pharyngoesophageal dysphagia R13.14 [facility] [id number] [place] [address] 48068- 7222 Nov, [facility] [id number] [place] [address] 16938- 8121 Nov, [facility] [address] [address]- 0570 Nov, [facility] [id number] [place] [address] [id number] Oct, Dental examination V72.2 [facility] [id number] [place] [address] 18156- 8340 Oct, [facility] [id number] [place] [address] 85642- 0088 Oct, [facility] [id number] [place] [address] 63715- 2537 Oct, [facility] [id number] [place] [address] 96136- 6020 Oct, [facility] [id number] [place] [address] 71094- 4352 Oct, BPH (benign prostatic hyperplasia) 600.00 and Urinary frequency 788.41 [facility] [id number] [place] [address] 79617- 8444 Oct, [facility] [id number] [place] [address] 90284- 7257 Oct, [facility] [id number] [place] [address] 28895- 2562 Oct, [facility] [id number] [place] [address] 32942- 4569 Sep, Cerumen impaction 380.4 ; Cerumen debris on tympanic membrane 380.4 ; Psoriasis 696.1 and MICKY (secretory otitis media) 381.4 [facility] [id number] [place] [address] [id number] Sep, Dental examination V72.2 [facility] [address] [address]- 7338 Sep, Fatigue 780.79 ; Irritable bowel syndrome 564.1 ; Overweight 278.02 ; Poor sleep V69.4 ; Shaking spells 781.0 and Broken tooth [address]73.63 [facility] [address] [address]- 7651 Sep, [facility] [address] [address]- 9648 Sep, [facility] [id number] [address]- 8607 Aug, [facility] [id number] [place] [address] 41251- 3374 Jul, [facility] [id number] [place] [address] 2956 Jul, [facility] [id number] [place] [address] Jul, [facility] [id number] [place] [address] Jul, [facility] [id number] [address] June, Arthritis of knee, right 716.96 [facility] [id number] [address] June, [facility] [id number] [address] June, Elevated blood pressure reading without diagnosis of hypertension 796.2 [facility] [id number] [address] June, [facility] [id number] [address] June, [facility] [id number] [address] June, [facility] [id number] [address] June, [facility] [id number] [place] [address], [place] [address] 14 May, 2014 [facility] [place] [facility] [address] [id number] [place] [address] 13 May, 2014 [facility] [place] [facility] [address] [id number] [place] [address] 30 Apr, 2014 [facility] [place] [facility] [address] [id number] [place] [address] 30 Apr, 2014 [facility] [place] [facility] [address] [id number] [place] [address]- [address] Apr, [facility] [place] [facility] [address] [id number] [place] [address] Apr, [facility] [place] [facility] [address] [id number] [place] [address]- [address] Apr, [facility] [place] [facility] [address] [id number] [place] [address]- [address] Apr, [facility] [place] [facility] [address] [id number] [place] [address]- [address] Apr, [facility] [place] [facility] [address] [id number] [place] [address]- [address] Apr, [facility] [place] [facility] [address] [facility] [id number] [place] [address] Apr, [facility] [place] [facility] [address] [id number] [place] [address] Apr, [facility] [place] [facility] [address] [id number] [place] [address]- [address] Apr, [facility] [place] [facility] [address] [id number] [place] [address]- [address] Apr, [facility] [place] [facility] [address] [id number] [place] [address] Apr, [facility] [place] [facility] [address] [id number] [place] [address] Apr, [facility] [place] [facility] [address] [id number] [place] [address]- [address]14 Apr, 2014 [facility] [place] [facility] [address] [id number] [place] [address]- [address] Apr, 2014 [facility] [place] [facility] [address] [facility] [id number] [place] [address]- [address] 20 Apr, 2014 [facility] [place] [facility] [address] [id number] [place] [address]43 20 Apr, 2014 [facility] [place] [facility] [address] [id number] [place] [address] 18 Apr, 2014 [facility] [place] [facility] [address] [facility] [id number] [place] [address] 18 Apr, 2014 [facility] [place] [facility] [address] [facility] [id number] [place] [address] 13 Apr, 2014 [facility] [place] [facility] [address] [facility] [id number] [place] [address] 13 Apr, 2014 [facility] [place] [facility] [address] [facility] [id number] [place] [address] 3829 13 Apr, 2014 [facility] [place] [facility] [address] [facility] [id number] [place] [address] 5752 13 Apr, 2014 [facility] [place] [facility] [address] [facility] [id number] [place] [address] 9134 Apr, 2014 [facility] [place] [facility] [address] [facility] [id number] [place] [address]- 2542 12 Apr, 2014 [facility] [place] [facility] [address] [facility] [id number] [place] [address]- 7369 Apr, 2014 [facility] [place] [facility] [address] [facility] [id number] [place] [address]- 1500 06 Apr, 2014 [facility] [place] [facility] [address] [facility] [id number] [place] [address]- 5794 05 Apr, 2014 [facility] [place] [facility] [address] [id number] [place] [address]- 8545 Apr, [facility] [place] [facility] [address] [id number] [place] [address]- 4075 Apr, [facility] [place] [facility] [address] [id number] [place] [address]- 4170 Apr, [facility] [place] [facility] [address] [id number] [place] [address]- 1220 Apr, [facility] [place] [facility] [address] [id number] [place] [address]- 2643 Mar, [facility] [place] [facility] [address] [id number] [place] [address]- 4261 Mar, [facility] [place] [facility] [address] [id number] [place] [address]- 4343 Mar, [facility] [place] [facility] [address] [id number] [place] [address]- 6803 Mar, [facility] [place] [facility] [address] [id number] [place] [address]- 1595 Mar, [facility] [place] [facility] [address] [id number] [place] [address]- 4603 Mar, [facility] [place] [facility] [address] [id number] [place] [address]- 6758 Mar, [facility] [place] [facility] [address] [id number] [address] 5458 Mar, [facility] [place] [facility] [address] [id number] [place] [address]- 4233 Mar, [facility] [place] [facility] [address] [id number] [place] [address]- 5355 Mar, [facility] [place] [facility] [address] [id number] [place] [address]- 8071 Jan, [facility] [place] [facility] [address] [id number] [place] [address]- 9491 Jan, [facility] [place] [facility] [address] [id number] [place] [address]- 7721 Jan, [facility] [place] [facility] [address] [id number] [place] [address] Jan, [facility] [place] [facility] [address] [id number] [place] [address]- 8113 Jan, [facility] [place] [facility] [address] [id number] [place] [address]- 9085 Jan, [facility] [place] [facility] [address] [id number] [place] [address]- 2835 Jan, [facility] [place] [facility] [address] [id number] [place] [address]- 2045 Jan, [facility] [place] [facility] [address] [id number] [place] [address]- 0335 Jan, [facility] [place] [facility] [address] [id number] [place] [address]- 5041 Jan, [facility] [place] [facility] [address] [id number] [place] [address]- 9543 Jan, [facility] [place] [facility] [address] [id number] [place] [address]- 1100 Jan, [facility] [place] [facility] [address] [id number] [place] [address]- 4418 Dec, [facility] [place] [facility] [address] [id number] [place] [address]- 6115 Dec, [facility] [place] [facility] [address] [id number] [place] [address]- 0635 Dec, [facility] [place] [facility] [address] [id number] [place] [address]- 9825 Dec, [facility] [place] [facility] [address] [id number] [place] [address]- 5496 Dec, [facility] [place] [facility] [address] [id number] [place] [address]- 6681 14 Dec, 2013 [facility] [place] [facility] [address] [id number] [place] [address]- 1392 07 Dec, 2013 [facility] [place] [facility] [address] [id number] [place] [address]- 9204 Dec, [facility] [place] [facility] [address] [id number] [place] [address]- 7912 Dec, [facility] [place] [facility] [address] [id number] [place] [address]- 8753 Dec, [facility] [place] [facility] [address] [id number] [place] [address]- 5253 Nov, [facility] [place] [facility] [address] [id number] [place] [address]- 9770 Nov, [facility] [place] [facility] [address] [id number] [place] [address]- 7297 Nov, [facility] [place] [facility] [address] [id number] [place] [address]- 6956 Nov, [facility] [place] [facility] [address] [id number] [place] [address]- 5219 Nov, [facility] [place] [facility] [address] [id number] [place] [address]- 0078 Nov, [facility] [place] [facility] [address] [id number] [place] [address]- 2427 Nov, [facility] [place] [facility] [address] [id number] [place] [address]- 6460 Nov, [facility] [place] [facility] [address] [id number] [place] [address]- 8911 Nov, [facility] [place] [facility] [address] [id number] [place] [address]- 3057 Nov, [facility] [place] [facility] [address] [id number] [place] [address]- 8570 Nov, [facility] [place] [facility] [address] [id number] [place] [address]- 7716 17 Nov, 2013 [facility] [place] [facility] [address] [id number] [place] [address]- 9033 14 Nov, 2013 [facility] [place] [facility] [address] [id number] [place] [address]- 8581 14 Nov, 2013 [facility] [place] [facility] [address] [id number] [place] [address]- 8180 10 Nov, 2013 [facility] [place] [facility] [address] [id number] [place] [address]- 6388 10 Nov, 2013 [facility] [place] [facility] [address] [id number] [place] [address]- 1322 08 Nov, 2013 [facility] [place] [facility] [address] [id number] [place] [address]- 6881 Nov, [facility] [place] [facility] [address] [id number] [place] [address]- 0234 Nov, [facility] [place] [facility] [address] [id number] [place] [address]- 8678 Nov, [facility] [place] [facility] [address] [id number] [place] [address]- 6037 26 Oct, 2013 [facility] [place] [facility] [address] [id number] [place] [address]- 5020 26 Oct, 2013 [facility] [place] [facility] [address] [id number] [address]- 9077 19 Oct, 2013 [facility] [place] [facility] [address] [id number] [place] [address]- 8595 19 Oct, 2013 [facility] [place] [facility] [address] [id number] [place] [address]- 8420 12 Oct, 2013 [facility] [place] [facility] [address] [id number] [place] [address]- 7420 12 Oct, 2013 [facility] [place] [facility] [address] [id number] [place] [address]- 9741 Oct, [facility] [place] [facility] [address] [id number] [place] [address]- 1767 Oct, [facility] [place] [facility] [address] [id number] [place] [address]- 7761 Oct, [facility] [place] [facility] [address] [id number] [place] [address]- 4943 Oct, [facility] [place] [facility] [address] [id number] [place] [address]- 5621 Sep, [facility] [place] [facility] [address] [id number] [place] [address]- 7765 Sep, [facility] [place] [facility] [address] [id number] [place] [address]- 0197 Sep, [facility] [place] [facility] [address] [id number] [place] [address]- 8303 Sep, [facility] [place] [facility] [address] [id number] [place] [address]- 7277 Sep, [facility] [place] [facility] [address] [id number] [place] [address]- 3453 Sep, [facility] [place] [facility] [address] [id number] [place] [address]- 2635 Sep, [facility] [place] [facility] [address] [id number] [place] [address]- 3223 Sep, [facility] [place] [facility] [address] [id number] [place] [address]- 3125 Sep, [facility] [place] [facility] [address] [id number] [place] [address]- 0039 Sep, [facility] [place] [facility] [address] [id number] [place] [address]- 7994 Sep, [facility] [place] [facility] [address] [id number] [place] [address]- 7311 Sep, [facility] [place] [facility] [address] [id number] [place] [address]- 8616 Sep, [facility] [place] [facility] [address] [id number] [place] [address]- 6380 Sep, [facility] [place] [facility] [address] [id number] [place] [address]- 6384 Sep, [facility] [place] [facility] [address] [id number] [place] [address]- 1479 Sep, [facility] [place] [facility] [address] [id number] [place] [address]- 7741 Sep, [facility] [place] [facility] [address] [id number] [place] [address]- 9967 Sep, [facility] [place] [facility] [address] [id number] [place] [address]- 4602 Sep, [facility] [place] [facility] [address] [id number] [place] [address]- 9698 Sep, [facility] [place] [facility] [address] [id number] [place] [address]- 8676 Sep, [facility] [place] [facility] [address] [id number] [place] [address]- 9428 Sep, [facility] [place] [facility] [address] [id number] [place] [address]- 3052 Sep, [facility] [place] [facility] [address] [id number] [place] [address]- 3296 Sep, [facility] [place] [facility] [address] [id number] [place] [address]- 3564 Sep, [facility] [place] [facility] [address] [id number] [place] [address]- 8855 Aug, [facility] [place] [facility] [address] [id number] [place] [address]- 6626 Aug, [facility] [place] [facility] [address] [id number] [place] [address]- 7050 Aug, [facility] [place] [facility] [address] [id number] [place] [address]- 1606 Aug, [facility] [place] [facility] [address] [id number] [place] [address]- 6343 Aug, [facility] [place] [facility] [address] [id number] [place] [address]- 3410 Aug, [facility] [place] [facility] [address] [id number] [place] [address]- 5448 Aug, [facility] [place] [facility] [address] [id number] [place] [address]- 1974 Aug, [facility] [place] [facility] [address] [id number] [place] [address]- 3674 Aug, [facility] [place] [facility] [address] [id number] [place] [address]- 9955 Aug, [facility] [place] [facility] [address] [id number] [place] [address]- 0036 Aug, [facility] [place] [facility] [address] [id number] [place] [address]- 8029 Aug, [facility] [place] [facility] [address] [id number] [place] [address]- 8510 Aug, [facility] [place] [facility] [address] [id number] [place] [address]- 3816 Jul, [facility] [place] [facility] [address] [id number] [place] [address]- 8051 Jul, [facility] [place] [facility] [address] [id number] [place] [address]- 2599 Jul, [facility] [place] [facility] [address] [id number] [place] [address]- 7335 Jul, [facility] [place] [facility] [address] [id number] [place] [address]- 0385 Jul, [facility] [place] [facility] [address] [id number] [place] [address]- 8428 Jul, [facility] [place] [facility] [address] [id number] [place] [address]- 2335 Jul, [facility] [place] [facility] [address] [id number] [place] [address]- 3685 June, [facility] [place] [facility] [address] [id number] [place] [address] June, [facility] [place] [facility] [address] [id number] [place] [address]- 5667 June, [facility] [place] [facility] [address] [id number] [place] [address]- 2565 June, [facility] [place] [facility] [address] [id number] [place] [address]- 6538 May, [facility] [place] [facility] [address] [id number] [place] [address]- 2378 May, [facility] [place] [facility] [address] [id number] [place] [address]- 1742 May, [facility] [place] [facility] [address] [id number] [place] [address]- 9763 May, [facility] [place] [facility] [address] [id number] [place] [address]- 5128 May, [facility] [place] [facility] [address] [id number] [place] [address]- 6455 May, [facility] [place] [facility] [address] [id number] [place] [address]- 9385 May, [facility] [place] [facility] [address] [id number] [place] [address]- 0392 May, [facility] [place] [facility] [address] [id number] [place] [address]- 3506 May, [facility] [place] [facility] [address] [id number] [place] [address]- 0322 May, [facility] [place] [facility] [address] [id number] [place] [address]- 2460 Apr, [facility] [place] [facility] [address] [id number] [place] [address]- 3514 Apr, [facility] [place] [facility] [address] [id number] [place] [address]- 6735 Apr, [facility] [place] [facility] [address] [id number] [place] [address]- 3229 Apr, [facility] [place] [facility] [address] [id number] [place] [address]- 4478 Apr, [facility] [place] [facility] [address] [id number] [place] [address]- 7978 Apr, [facility] [place] [facility] [address] [id number] [place] [address]- 9118 Apr, [facility] [place] [facility] [address] [id number] [place] [address]- 4950 Apr, [facility] [place] [facility] [address] [id number] [place] [address]- 8090 Apr, [facility] [place] [facility] [address] [id number] [place] [address]- 3305 Apr, [facility] [place] [facility] [address] [id number] [place] [address]- 6563 Mar, [facility] [place] [facility] [address] [id number] [place] [address]- 7971 Mar, [facility] [place] [facility] [address] [id number] [place] [address]- 3897 Mar, [facility] [place] [facility] [address] [id number] [place] [address]- 8165 Mar, [facility] [place] [facility] [address] [id number] [place] [address]- 1968 Mar, [facility] [place] [facility] [address] [id number] [place] [address]- 5129 Mar, [facility] [address] [id number] [place] [address]- 4088 Jan, [facility] [place] [facility] [address] [id number] [place] [address]- 0703 Jan, [facility] [address] [id number] [place] [address]- 4693 Jan, [facility] [place] [facility] [address] [id number] [place] [address]- 5706 Jan, [facility] [address] [id number] [place] [address]- 6133 Jan, [facility] [address] [id number] [place] [address]- 3489 Jan, [facility] [address] [id number] [place] [address]- 6858 Jan, [facility] [address] [id number] [place] [address]- 3841 Jan, [facility] [place] [facility] [address] [id number] [place] [address]- 9078 Jan, [facility] [address] [facility] [id number] [place] [address]- 4640 Dec, [facility] [place] [facility] [address] [id number] [place] [address]- 5768 Dec, [facility] [place] [facility] [address] [id number] [address]- 7861 Dec, [facility] [place] [facility] [address] [id number] [place] [address]- 8449 Dec, [facility] [place] [facility] [address] [id number] [place] [address]- 8276 Dec, [facility] [place] [facility] [address] [id number] [place] [address]- 4973 Dec, [facility] [place] [facility] [address] [id number] [place] [address]- 4042 Dec, [facility] [place] [facility] [address] [id number] [place] [address]- 5938 Dec, [facility] [place] [facility] [address] [id number] [place] [address]- 8485 Dec, [facility] [place] [facility] [address] [id number] [place] [address]- 2639 Dec, [facility] [place] [facility] [address] [id number] [place] [address]- 9559 Dec, [facility] [place] [facility] [address] [id number] [place] [address]- 1895 Nov, [facility] [place] [facility] [address] [id number] [place] [address]- 0371 Nov, [facility] [place] [facility] [address] [id number] [place] [address]- 1721 Nov, [facility] [place] [facility] [address] [id number] [place] [address]- 2772 Nov, [facility] [place] [facility] [address] [id number] [place] [address]- 1973 Nov, [facility] [place] [facility] [address] [id number] [place] [address]- 8915 Oct, [facility] [place] [facility] [address] [id number] [place] [address]- 0483 Oct, [facility] [place] [facility] [address] [id number] [place] [address]- 4322 Sep, [facility] [place] [facility] [address] [id number] [place] [address]- 5076 Aug, [facility] [place] [facility] [address] [id number] [place] [address]- 2543 Aug, [facility] [place] [facility] [address] [id number] [place] [address]- 8005 Aug, [facility] [address] [id number] [place] [address]- 1604 Aug, [facility] [place] [facility] [address] [id number] [place] [address]- 8419 Jul, [facility] [place] [facility] [address] [id number] [place] [address]- 1489 Jul, [facility] [place] [facility] [address] [id number] [place] [address]- 7559 June, [facility] [place] [facility] [address] [id number] [place] [address]- 3128 June, [facility] [place] [facility] [address] [id number] [place] [address]- 2294 June, [facility] [place] [facility] [address] [id number] [place] [address]- 4962 May, [facility] [place] [facility] [address] [id number] [place] [address]- 3634 May, [facility] [place] [facility] [address] [id number] [place] [address]- 0299 May, [facility] [place] [facility] [address] [id number] [place] [address]- 8099 Apr, [facility] [place] [facility] [address] [id number] [place] [address]- 6501 18 Apr, 2012 [facility] [place] [facility] [address] [id number] [place] [address]- 9928 15 Apr, 2012 [facility] [place] [facility] [address] [id number] [place] [address]- 4702 14 Apr, 2012 [facility] [place] [facility] [address] [id number] [place] [address]- 3531 Apr, [facility] [place] [facility] [address] [id number] [place] [address]- 6381 Apr, [facility] [place] [facility] [address] [id number] [place] [address]- 0984 Apr, 2012 [facility] [address] [id number] [place] [address] Apr, 2012 [facility] [place] [facility] [address] [id number] [place] [address] Apr, 2012 [facility] [address] [id number] [place] [address] 2546 20 Apr, 2012 [facility] [place] [facility] [address] [id number] [place] [address] 19 Apr, 2012 [facility] [address] [id number] [place] [address] Apr, [facility] [address] [id number] [place] [address] Apr, [facility] [address] [id number] [place] [address] Mar, [facility] [address] [id number] [place] [address] Mar, [facility] [address] [id number] [place] [address] Mar, [facility] [address] [id number] [place] [address] Mar, [facility] [address] [id number] [place] [address] Mar, [facility] [place] [facility] [address] [id number] [place] [address] Jan, [facility] [place] [facility] [address] [id number] [place] [address] Jan, [facility] [place] [facility] [address] [id number] [place] [address] Jan, [facility] [place] [facility] [address] [id number] [place] [address]29 22 Jan, 2012 [facility] [place] [facility] [address] [id number] [place] [address] 14 Jan, 2012 [facility] [place] [facility] [address] [id number] [place] [address]96 13 Jan, 2012 [facility] [place] [facility] [address] [id number] [place] [address]106 13 Jan, 2012 [facility] [place] [facility] [address] [id number] [place] [address] 11 Jan, 2012 [facility] [place] [facility] [address] [id number] [place] [address] 12[address] Jan, [facility] [place] [facility] [address] [id number] [place] [address]- 8044 06 Jan, 2012 [facility] [place] [facility] [address] [id number] [place] [address] Jan, [facility] [place] [facility] [address] [id number] [place] [address] 6[address] Jan, [facility] [place] [facility] [address] [id number] [place] [address] Jan, [facility] [place] [facility] [address] [id number] [place] [address] Jan, [facility] [place] [facility] [address] [id number] [place] [address]- 1477 Dec, [facility] [place] [facility] [address] [id number] [place] [address] Dec, [facility] [place] [facility] [address] [id number] [place] [address] 37[address] Dec, [facility] [place] [facility] [address] [id number] [place] [address] 4[address] Dec, [facility] [place] [facility] [address] [id number] [place] [address] 15 Jan, 2012 [facility] [place] [facility] [address] [id number] [place] [address] 9[address] 15 Jan, 2012 [facility] [place] [facility] [address] [id number] [place] [address]345 14 Jan, 2012 [facility] [place] [facility] [address] [id number] [place] [address]046 14 Jan, 2012 [facility] [place] [facility] [address] [id number] [place] [address] 14 Jan, 2012 [facility] [place] [facility] [address] [id number] [place] [address] 8801 14 Jan, 2012 [facility] [place] [facility] [address] [id number] [place] [address] 07 Jan, 2012 [facility] [place] [facility] [address] [id number] [place] [address] 07 Jan, 2012 [facility] [place] [facility] [address] [id number] [place] [address] 8871 16 Dec, 2011 [facility] [place] [facility] [address] [id number] [place] [address]- 6193 16 Dec, 2011 [facility] [place] [facility] [address] [id number] [place] [address] 2810 13 Nov, 2011 [facility] [place] [facility] [address] [id number] [place] [address]9 13 Nov, 2011 [facility] [place] [facility] [address] [id number] [place] [address]- 2988 13 Nov, 2011 [facility] [place] [facility] [address] [id number] [place] [address]- 8289 12 Nov, 2011 [facility] [place] [facility] [address] [id number] [place] [address]- [address]135 30 Oct, 2011 [facility] [place] [facility] [address] [id number] [place] [address]- [address] Sep, [facility] [place] [facility] [address] [id number] [place] [address] 0770 Aug, [facility] [address] [id number] [place] [address] 9438 Aug, [facility] [place] [facility] [address] [id number] [place] [address]- 2392 Aug, [facility] [place] [facility] [address] [id number] [place] [address]- 6444 Aug, [facility] [place] [facility] [address] [id number] [place] [address]- 0924 June, [facility] [address] [id number] [place] [address]- [address]25 June, [facility] [place] [facility] [address] [id number] [place] [address]- 58[address] May, [facility] [place] [facility] [address] [id number] [place] [address]805 Apr, [facility] [place] [facility] [address] [id number] [place] [address] Apr, [facility] [place] [facility] [address] [id number] [place] [address]- 7477 Apr, [facility] [place] [facility] [address] [id number] [place] [address]- 3570 Apr, [facility] [place] [facility] [address] [id number] [place] [address]- 2364 Apr, [facility] [place] [facility] [address] [id number] [place] [address]- 1567 Apr, [facility] [place] [facility] [address] [id number] [place] [address]- 6088 Mar, [facility] [place] [facility] [address] [id number] [place] [address]- 2346 Mar, [facility] [place] [facility] [address] [id number] [place] [address]- 9030 Mar, [facility] [place] [facility] [address] [id number] [place] [address]- 0089 30 Jan, 2011 [facility] [place] [facility] [address] [id number] [place] [address] Jan, [facility] [place] [facility] [address] [id number] [place] [address] Jan, [facility] [place] [facility] [address] [id number] [place] [address]- 2204 Jan, [facility] [place] [facility] [address] [id number] [place] [address]- 9279 Jan, [facility] [place] [facility] [address] [id number] [place] [address] Jan, [facility] [place] [facility] [address] [id number] [place] [address]- 6015 Jan, [facility] [place] [facility] [address] [id number] [place] [address]- 8797 Dec, [facility] [place] [facility] [address] [id number] [place] [address]- 4649 Dec, [facility] [place] [facility] [address] [id number] [place] [address]- 6745 Nov, [facility] [place] [facility] [address] [id number] [place] [address]- 2042 Nov, [facility] [place] [facility] [address] [id number] [place] [address] Nov, [facility] [place] [facility] [address] [id number] [place] [address] Nov, [facility] [place] [facility] [address] [id number] [place] [address] Oct, [facility] [place] [facility] [address] [id number] [place] [address] Sep, [facility] [place] [facility] [address] [id number] [place] [address] Mar, [facility] [place] [facility] [address] [id number] [place] [address] Jan, [facility] [place] [facility] [address] [id number] [place] [address] Dec, [facility] [place] [facility] [address] [id number] [place] [address] Dec, [facility] [place] [facility] [address] [id number] [place] [address] Dec, [facility] [place] [facility] [address] [id number] [place] [address] Dec, [facility] [place] [facility] [address] [id number] [place] [address] 26 Nov, 2009 [facility] [place] [facility] [address] [id number] [place] [address] 15 Nov, 2009 [facility] [place] [facility] [address] [id number] [place] [address] 14 Nov, 2009 [facility] [place] [facility] [address] [id number] [place] [address] 14 Nov, 2009 [facility] [place] [facility] [address] [id number] [place] [address] 13 Oct, 2009 [facility] [place] [facility] [address] [id number] [place] [address] 17 Jul, 2009 [facility] [place] [facility] [address] [id number] [place] [address] June, [facility] [place] [facility] [address] [id number] [place] [address] June, [facility] [place] [facility] [address] [id number] [place] [address] 17 Apr, 2009 [facility] [place] [facility] [address] [id number] [place] [address] Mar, [facility] [place] [facility] [address] [id number] [address] Jan, [facility] [address] [id number] [address] Jan, [facility] [id number] [address] Dec, [facility] [id number] [address] Dec, [facility] [id number] [address] Dec, [facility] [id number] [address] Dec, [facility] [id number] [address] Nov, [facility] [id number] [address] Jul, [facility] [address] [id number] [address] June, IMMUNIZATIONS No Known Immunizations SOCIAL HISTORY Never Assessed REASON FOR VISIT Controlled Med refills PLAN OF CARE VITAL SIGNS MEDICATIONS Medication Instructions Dosage Frequency Start Date End Date Duration Status Endocet 10-325 MG Orally every 4-6 hours 1 tablet as needed Sep, Active Clonazepam 1 MG Orally Once a day as needed for anxiety 1 tablet June, 28 days Active RESULTS No Results PROCEDURES No Known procedures INSTRUCTIONS MEDICATIONS ADMINISTERED No Known Medications MEDICAL (GENERAL) HISTORY Type Description Date Medical History hypertension Medical History sleep apnea-did not tolerate CPAP Medical History oxygen dependent at [facility] Medical History colonic polyps Medical History hyperlipidemia [...]
--- OUTSIDE RECORDS SUMMARY | 2018-02-26 19:20 | XMS REPORT ---
Author Author GRAHAM CHRIS [facility] Address [address] [place] [address] Care Team Providers Care Retail Operations Manager Name Role Phone GRAHAMELLIOTT HANNAHANY Unavailable PROBLEMS Type Condition ICD9-CM Code PXP61-SC Code Onset Dates Condition Status SNOMED Code Problem Pulmonary asbestosis J61 Active 36585658 Problem Left ventricular diastolic dysfunction I51.9 Active 391249798 Problem Chronic gout, unspecified cause, unspecified site M1A.[id number] Active 45859094 Problem Renal cyst, left N28.1 Active 14642923 Problem History of weight loss surgery Z98.84 Active 083258708 Problem Nocturnal hypoxia G47.34 Active 595972093 Problem Obstructive sleep apnea syndrome G47.33 Active 66232254 Problem History of diverticulitis Z87.19 Active 946826686289845 Problem Allergic rhinitis, unspecified allergic rhinitis type J30.9 Active 69340784 Problem Erectile dysfunction due to diseases classified elsewhere N52.1 Active 524351559 Problem Acute right-sided low back pain with right-sided sciatica M54.41 Active 529884544 Problem Psoriasis L40.9 Active 3044183 Problem Essential hypertension I10 Active 40632721 Problem Nephrolithiasis N20.0 Active 03707989 Problem Chronic prescription opiate use Z79.899 Active 183956495 Problem 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 Active 34847526 Problem Benign prostatic hyperplasia, presence of lower urinary tract symptoms unspecified, unspecified morphology N40.0 Active 565608647 Problem Moderate episode of recurrent major depressive disorder F33.1 Active 611148974 Problem Age-related osteoporosis without current pathological fracture M81.0 Active 75278528 Problem Low back pain M54.5 Active 181362153 Problem Anxiety F41.9 Active 96329320 Problem Urge incontinence N39.41 Active 043229881 Problem Hyperlipidemia, unspecified E78.5 Active 90108553 Problem Esophageal stricture K22.2 Active 37768316 Problem Cervicalgia M54.2 Active 0561267028911 Problem Primary insomnia F51.01 Active 878492923 ALLERGIES No Information ENCOUNTERS Encounter Location Date Diagnosis [facility] [address] [address] Jul, [facility] [address] [address]38- 4512 Jul, Anxiety F41.9 [facility] [address] 75103- 7970 June, Anxiety F41.9 [facility] [address] 01583- 0419 June, [facility] [address] [address]52- 3413 June, Low back pain M54.5 ; Chronic prescription opiate use Z79.899 ; Candidal intertrigo B37.2 ; Urge incontinence N39.41 ; Essential hypertension I10 ; Moderate episode of recurrent major depressive disorder F33.1 ; Age-related osteoporosis without current pathological fracture M81.0 and BMI 45.0-49.9, adult Z68.42 [facility] [address] [address]- 5[address] June, [facility] [address] 82404- 1050 May, Anxiety F41.9 [facility] [address] 47160- 9813 May, [facility] [address] 65234- 2122 May, [facility] [address] 18621- 6605 Apr, Anxiety F41.9 [facility] [address] 21887- 9448 Apr, [facility] [address] 79250- 5913 Apr, Low back pain M54.5 [facility] [address] [address] 33[address] Apr, [facility] [address] [place] [id number] [place] [address] 51937- 4348 Apr, [facility] [id number] [place] [address] 83087- 5754 Apr, Anxiety F41.9 [facility] [address] [facility] [id number] [place] [address] 01980- 5191 Apr, Right groin pain R10.31 [facility] [address] [facility] [id number] [place] [address] 63771- 5986 Mar, [facility] [address] [place] [id number] [place] [address] 03704- 3992 Mar, [facility] [address] [place] [id number] [place] [address] 67758- 8707 Mar, Anxiety F41.9 [facility] [id number] [place] [address] 28508- 6785 Mar, Low back pain M54.5 [facility] [address] [place] [id number] [place] [address] 72261- 1331 Mar, Right groin pain R10.31 ; Low back pain M54.5 and BMI 45.0- 49.9, adult Z68.42 [facility] [address] [address] 4024 Mar, [facility] [address] [place] [id number] [place] [address] 90121- 1207 Mar, [facility] [id number] [place] [address] 21431- 0871 Mar, [facility] [id number], [place] [address] Mar, [facility] [id number] [place] [address] 96247 -4269 Mar, Cough R05 ; Pneumonia of right lower lobe due to infectious organism J18.1 and Abnormal chest x-ray R93.8 [facility] [address] [place] [id number] [place] [address] 63507- 9989 Mar, [facility] [address] [place] [id number] [place] [address] 88389- 6523 Mar, [facility] [address] [place] [id number] [place] [address] 37456- 6826 Jan, Anxiety F41.9 [place] [address] 79894- 6069 Jan, [place] [address] [place] [id number] [place] [address] 03429- 3508 Jan, Moderate episode of recurrent major depressive disorder F33.1 [place] [address] [place] [id number] [place] [address] 15396- 9883 Jan, Subacromial bursitis of right shoulder joint M75.51 ; Shortness of breath on exertion R06.02 and BMI 45.0-49.9, adult Z68.42 [facility] [address] [place] [id number] [place] [address] 34321- 4053 Dec, Anxiety F41.9 [place] [address] [place] [id number] [place] [address] 13344- 5723 Dec, [place] [address] [place] [id number] [place] [address] 65102- 3522 Dec, Low back pain M54.5 [place] [address] 57275- 3089 Oct, Low back pain M54.5 [facility] [address] [place] [id number] [place] [address] 24921- 2230 Sep, [facility] [address] 64596- 7265 Sep, Erectile dysfunction due to diseases classified elsewhere N52.1 [facility] [id number] [place] [address] 13516- 2357 Sep, Erectile dysfunction due to diseases classified elsewhere N52.1 [facility] [address] [place] [id number] [place] [address] 40364- 7082 Sep, [facility] [address] [place] [id number] [place] [address] 68714- 2699 Sep, Erectile dysfunction due to diseases classified elsewhere N52.1 [facility] [address] [place] [id number] [place] [address] 41723- 7656 Sep, Low back pain M54.5 and Anxiety F41.9 [facility] [address] [place] [id number] [place] [address] 30827 -2662 Aug, Acute allergic rhinitis J30.9 [facility] [address] [place] [id number] [place] [address] 66014- 5217 Aug, [facility] [address] [place] [id number] [place] [address] 36829- 0511 Aug, Anxiety F41.9 [place] [address] [place] [id number] [place] [address] 70585- 1536 Jul, Low back pain M54.5 ; Chronic prescription opiate use Z79.899 and Essential hypertension I10 [facility] [address] [place] [id number] [place] [address] 74569- 6007 Jul, Anxiety F41.9 and Low back pain M54.5 [facility] [address] [place] [id number] [place] [address] 34977- 7843 June, [facility] [address] [place] [id number] [place] [address] 64097- 7739 June, Anxiety F41.9 [facility] [address] [place] [id number] [place] [address] 55196- 5048 May, Low back pain M54.5 [facility] [address] [address]- 9879 May, [facility] [address] [place] [id number] [place] [address] 03212- 2174 May, Anxiety F41.9 [facility] [address] [place] [id number] [place] [address] 77600- 4242 Apr, [facility] [address] [place] [id number] [place] [address] 18208- 8453 Apr, Low back pain M54.5 [facility] [address] [place] [id number] [place] [address] 92860- 1933 Apr, Moderate episode of recurrent major depressive disorder F33.1 [facility] [address] [place] [id number] [place] [address] 99551- 8422 Apr, Anxiety F41.9 [facility] [address] [place] [id number] [place] [address] 35436- 5454 Apr, Low back pain M54.5 [facility] [address] [place] [id number] [place] [address] 07666- 4867 15 Apr, 2016 Elevated alkaline phosphatase level R74.8 [facility] [address] [place] [id number] [place] [address] 08941- 4966 10 Apr, 2016 Alkaline phosphatase elevation R74.8 [facility] [address] [place] [id number] [place] [address] 02297- 4754 06 Apr, 2016 Anxiety F41.9 [facility] [id number] [place] [address] 69915- 6400 Apr, Low back pain M54.5 [facility] [address] [place] [id number] [place] [address] 79797- 4407 Apr, History of weight loss surgery Z98.84 ; Encounter for hepatitis C screening test for low risk patient Z11.59 ; History of herpes genitalis Z86.19 ; Essential hypertension I10 ; Hyperlipidemia, unspecified E78.5 ; Exposure to STD Z20.2 and Benign prostatic hyperplasia, presence of lower urinary tract symptoms unspecified, unspecified morphology N40.0 [facility] [id number] [place] [address] 07201- 0830 Apr, [facility] [address] [place] [id number] [place] [address] 33963- 7806 Mar, [facility] [address] [place] [id number] [place] [address] 96852- 0633 Mar, [facility] [address] [place] [id number] [place] [address] 20568- 8902 Mar, [facility] [address] [place] [id number] [place] [address] 72400- 8279 Mar, Acute right-sided low back pain with right-sided sciatica M54.41 [place] [address] [place] [id number] [place] [address] 68638- 5308 Mar, Low back pain M54.5 [facility] [id number] [place] [address] 28471 -8687 Mar, Muscle strain of chest wall, initial encounter S29.011A ; Muscle strain of right thigh, initial encounter S76.911A and Acute non- recurrent maxillary sinusitis J01.00 [facility] [address] [address]- 3566 Mar, Benign prostatic hyperplasia, presence of lower urinary tract symptoms unspecified, unspecified morphology N40.0 [facility] [address], [place] [address]- 9937 Jan, Low back pain M54.5 [facility] [id number] [place] [address] 82163- 8815 Jan, Low back pain M54.5 ; Essential hypertension I10 ; Hyperlipidemia, unspecified E78.5 ; Anxiety F41.9 ; Moderate episode of recurrent major depressive disorder F33.1 ; Primary insomnia F51.01 ; Exposure to STD Z20.2 ; Encounter for hepatitis C screening test for low risk patient Z11.59 and History of herpes genitalis Z86.19 [facility] [address] [place] [id number] [place] [address] 28265- 8419 17 Jan, 2016 [facility] [address] [place] [id number] [place] [address] 36428- 9100 20 Dec, 2015 [facility] [address] [place] [id number] [place] [address] 14700- 9034 14 Dec, 2015 Anxiety F41.9 ; Cervicalgia M54.2 ; Moderate episode of recurrent major depressive disorder F33.1 and Encounter for immunization Z23 [facility] [address] [place] [id number] [place] [address] 88463- 1678 Oct, [facility] [address] [place] [id number] [place] [address] 74964- 3157 Oct, [facility] [address] [place] [id number] [place] [address] 68665- 4558 16 Nov, 2015 [facility] [address] [place] [id number] [place] [address] 44880- 2253 Oct, [facility] [address] [place] [id number] [place] [address] 75832- 1972 Sep, [facility] [address] [place] [id number] [place] [address] 99245- 3337 Aug, Low back pain M54.5 ; Anxiety F41.9 ; Primary insomnia F51.01 and Chronic prescription opiate use Z79.899 [facility] [address] [place] [id number] [place] [address] 98235- 0908 Jul, [facility] [address] [place] [id number] [place] [address] 66077- 2915 Jul, [facility] [address] [place] [id number] [place] [address] 23457- 7167 Jul, [facility] [address] [place] [id number] [place] [address] 86401- 9460 Jul, [facility] [address], [place] [address]- 0473 Jul, [facility] [address], [place] [address]- 6939 June, [facility] [address] [address]- 3703 June, [facility] [address] [place] [id number] [place] [address] 14769- 6380 June, [facility] [address], [place] [address]- 5110 June, [facility] [address] [place] [id number] [place] [address] 49175- 3881 May, Preoperative cardiovascular examination Z01.810 [facility] [address] [address]- 8636 May, [facility] [address], [place] [address]- 5462 Apr, [facility] [address], [place] [address]- 3291 Apr, Osteoarthritis of right knee M17.9 [facility] [address], [place] [address]- 0779 30 May, 2015 [facility] [address], [place] [address]- 8021 16 May, 2015 [facility] [address], [place] [address]- 1435 Apr, [facility] [address], [place] [address]- 4568 09 May, 2015 [facility] [address], [place] [address]- 5437 08 May, 2015 History of excessive cerumen Z78.9 ; Obstructive sleep apnea syndrome G47.33 ; History of diverticulitis Z87.19 and Nephrolithiasis N20.0 [facility] [id number] [place] [address] 17060- 5867 29 Apr, 2015 [facility] [address] [id number] [place] [address] 72417 -6236 23 Apr, 2015 Abdominal pain R10.9 [facility] [address] [place] [id number] [place] [address] 68701- 8637 Apr, [facility] [address] [place] [id number] [place] [address] 49699- 9715 Apr, Osteoarthritis of right knee M17.9 [place] [address] [place] [id number] [place] [address] 27727- 0871 Mar, [facility] [address] [place] [id number] [place] [address] 97838- 2328 15 Mar, 2015 [place] [address] [place] [id number] [place] [address] 55179- 8826 Mar, [facility] [address] [place] [id number] [place] [address] 82871- 3607 Mar, [facility] [address] [place] [id number] [place] [address] 84718 -3620 Mar, Pyelonephritis N12 ; Left-sided thoracic back pain M54.6 ; Hematuria, unspecified R31.9 and Kidney stone N20.0 [place] [address] [place] [id number] [place] [address] 96826- 0348 Mar, History of weight loss surgery Z98.84 [facility] [address] [place] [id number] [place] [address] 24035- 6658 07 Mar, 2015 History of weight loss surgery Z98.84 and Hyperlipidemia, unspecified E78.5 [place] [address] [place] [id number] [place] [address] 96466- 3935 06 Mar, 2015 Low back pain M54.5 ; Chronic prescription opiate use Z79.899 ; Hyperlipidemia, unspecified E78.5 ; Spasm of back muscles M62.830 and History of weight loss surgery Z98.84 [facility] [address], [place] [address]- 1921 Jan, [facility] [address] [place] [id number] [place] [address] 45783- 5024 Jan, [facility] [address] [place] [id number] [place] [address] 35444- 6184 Jan, [facility] [address] [place] [id number] [place] [address] 81405- 8266 Dec, [facility] [address] [place] [id number] [place] [address] 21285- 6348 Dec, [facility] [address] [place] [id number] [place] [address] 60049- 3753 Dec, [facility] [address] [place] [id number] [place] [address] 31041- 6810 Nov, [facility] [address] [place] [id number] [place] [address] 76495- 8002 Nov, Obstructive sleep apnea syndrome G47.33 and Pharyngoesophageal dysphagia R13.14 [facility] [address] [place] [id number] [place] [address] 45585- 7899 Nov, [facility] [address] [place] [id number] [place] [address] 44163- 1019 Nov, [facility] [address] [place] [id number] [place] [address] 50993- 7814 Nov, [facility] [id number] [place] [address] [id number] 30 Oct, 2014 Dental examination V72.2 [facility] [address] [place] [id number] [place] [address] 85680- 5025 Oct, [facility] [address] [id number] [place] [address] 19408- 4448 Oct, [facility] [address] [id number] [place] [address] 04536- 1643 Oct, [facility] [id number] [place] [address] 31070- 9456 Oct, [facility] [address] [id number] [place] [address] 69718- 3079 Oct, BPH (benign prostatic hyperplasia) 600.00 and Urinary frequency 788.41 [facility] [address] 26806- 2999 Oct, [facility] [address] [place] [id number] [place] [address] 65357- 2706 Oct, [facility] [address] [place] [id number] [place] [address] 63568- 9619 Oct, [facility] [address] [id number] [place] [address] 15460- 9091 Sep, Cerumen impaction 380.4 ; Cerumen debris on tympanic membrane 380.4 ; Psoriasis 696.1 and MICKY (secretory otitis media) 381.4 [facility] [address] [place] [address] [id number] Sep, Dental examination V72.2 [facility] [address] [id number] [place] [address] 75108- 7956 Sep, Fatigue 780.79 ; Irritable bowel syndrome 564.1 ; Overweight 278.02 ; Poor sleep V69.4 ; Shaking spells 781.0 and Broken tooth 873.63 [facility] [id number] [place] [address] 09599- 4416 Sep, [facility] [address] [place] [id number] [place] [address] 13416- 6924 Sep, [facility] [address] [place] [id number] [place] [address] 20801- 7007 Aug, [facility] [id number] [place] [address] 10510- 2267 Jul, [facility] [address] [id number] [place] [address]- 7571 Jul, [facility] [address] [facility] [id number] [place] [address]- 5267 Jul, [facility] [address] [facility] [id number] [place] [address]- 2999 Jul, [facility] [id number] [place] [address]- 2917 June, Arthritis of knee, right 716.96 [facility] [address] [id number] [place] [address]- 3527 June, [facility] [id number] [place] [address]- 1245 June, Elevated blood pressure reading without diagnosis of hypertension 796.2 [facility] [id number] [place] [address]- 6196 June, [facility] [id number] [place] [address]- 6778 June, [facility] [id number] [place] [address]- 7631 June, [facility] [id number] [place] [address]- 2034 June, [facility] [id number] [place] [address]- 9728 May, [facility] [address] [facility] [id number] [place] [address]- 8609 May, [facility] [id number] [id number] Apr, [facility] [address] [facility] [id number] [place] [address] Apr, [facility] [address] [id number] [address] Apr, [facility] [place] [facility] [address] [id number] [place] [address] 27 Apr, 2014 [facility] [place] [facility] [address] [id number] [place] [address] Apr, 2014 [facility] [place] [facility] [address] [id number] [place] [address] Apr, 2014 [facility] [place] [facility] [address] [id number] [place] [address] Apr, 2014 [facility] [place] [facility] [address] [id number] [place] [address] 13 Apr, 2014 [facility] [place] [facility] [address] [id number] [place] [address] Apr, 2014 [facility] [place] [facility] [address] [facility] [id number] [place] [address] Apr, 2014 [facility] [place] [facility] [address] [id number] [place] [address] Apr, 2014 [facility] [place] [facility] [address] [id number] [place] [address] Apr, 2014 [facility] [place] [facility] [address] [facility] [id number] [place] [address]- [address] 24 Apr, 2014 [facility] [place] [facility] [address] [facility] [id number] [place] [address] Apr, 2014 [facility] [place] [facility] [address] [id number] [place] [address] Apr, 2014 [facility] [place] [facility] [address] [id number] [place] [address] Apr, 2014 [facility] [place] [facility] [address] [id number] [place] [address] Apr, 2014 [facility] [place] [facility] [address] [id number] [place] [id number] [address] Apr, 2014 [facility] [place] [facility] [address] [facility] [id number] [place] [address] 18 Apr, 2014 [facility] [place] [facility] [address] [id number] [place] [address] 18 Apr, 2014 [facility] [place] [facility] [address] [facility] [id number] [place] [address] 13 Apr, 2014 [facility] [place] [facility] [address] [facility] [id number] [place] [address] 7616 Apr, 2014 [facility] [place] [facility] [address] [id number] [place] [address] 5650 13 Apr, 2014 [facility] [place] [facility] [address] [facility] [id number] [place] [address] 5642 Apr, 2014 [facility] [place] [facility] [address] [id number] [place] [address] 9[address] 12 Apr, 2014 [facility] [place] [facility] [id number] [place] [address] 56[address] Apr, 2014 [facility] [place] [facility] [address] [facility] [id number] [place] [address]- 5219 Apr, 2014 [facility] [place] [facility] [address] [id number] [place] [address] 5549 Apr, 2014 [facility] [place] [facility] [address] [id number] [address] Apr, 2014 [facility] [place] [facility] [address] [facility] [id number][place] [address] 78[address] Apr, 2014 [facility] [place] [facility] [address] [facility] [id number] [place] [address]- 6456 Apr, 2014 [facility] [place] [facility] [address] [facility] [id number] [place] [address]- 5863 Apr, 2014 [facility] [place] [facility] [address] [facility] [id number] [address] 03 Apr, 2014 [facility] [place] [facility] [id number] [address] Mar, [facility] [place] [facility] [address] [id number] [place] [address]- 7924 Mar, [facility] [place] [facility] [address] [id number] [place] [address]- 8656 Mar, [facility] [place] [facility] [address] [id number] [place] [address]- 8750 Mar, [facility] [place] [facility] [address] [id number] [place] [address]- 3222 Mar, [facility] [place] [facility] [address] [id number] [place] [address]- 4769 Mar, [facility] [place] [facility] [address] [id number] [place] [address]- 7808 Mar, [facility] [place] [facility] [address] [id number] [place] [address]- 0276 Mar, [facility] [place] [facility] [address] [id number] [place] [address]- 8529 Mar, [facility] [place] [facility] [address] [id number] [place] [address]- 1622 Mar, [facility] [place] [facility] [address] [id number] [place] [address]- 1752 Jan, [facility] [place] [facility] [address] [id number] [place] [address]- 6315 Jan, [facility] [place] [facility] [address] [id number] [place] [address]- 7230 Jan, [facility] [place] [facility] [address] [id number] [place] [address]- 0228 Jan, [facility] [place] [facility] [address] [id number] [place] [address]- 9153 Jan, [facility] [place] [facility] [address] [id number] [place] [address]- 8187 Jan, [facility] [place] [facility] [address] [id number] [place] [address]- 8284 05 Jan, 2014 [facility] [place] [facility] [address] [id number] [place] [address]- 9510 Jan, [facility] [place] [facility] [address] [id number] [place] [address]- 8784 Jan, [facility] [place] [facility] [address] [id number] [place] [address]- 5048 Jan, [facility] [place] [facility] [address] [id number] [place] [address]- 0354 Jan, [facility] [place] [facility] [address] [id number] [place] [address]- 1354 Jan, [facility] [place] [facility] [address] [id number] [place] [address]- 3999 Dec, [facility] [place] [facility] [address] [id number] [place] [address]- 2363 Dec, [facility] [place] [facility] [address] [id number] [place] [address]- 2954 Dec, [facility] [place] [facility] [address] [id number] [place] [address]- 8192 Dec, [facility] [place] [facility] [address] [id number] [place] [address]- 9404 Dec, [facility] [place] [facility] [address] [id number] [place] [address]- 8888 Dec, [facility] [place] [facility] [address] [id number] [place] [address]- 5527 Dec, [facility] [place] [facility] [address] [id number] [place] [address]- 9742 Dec, [facility] [place] [facility] [address] [id number] [place] [address]- 9966 Dec, [facility] [place] [facility] [address] [id number] [place] [address]- 4821 Dec, [facility] [place] [facility] [address] [id number] [place] [address]- 1247 Nov, [facility] [place] [facility] [address] [id number] [place] [address]- 4898 Nov, [facility] [place] [facility] [address] [id number] [place] [address]- 3254 Nov, [facility] [place] [facility] [address] [id number] [place] [address]- 7443 Nov, [facility] [place] [facility] [address] [id number] [place] [address]- 9438 Nov, [facility] [place] [facility] [address] [id number] [place] [address]- 7224 Nov, [facility] [place] [facility] [address] [id number] [place] [address]- 3501 Nov, [facility] [place] [facility] [address] [id number][place] [address]- 7602 Nov, [facility] [place] [facility] [address] [id number] [place] [address]- 6330 Nov, [facility] [place] [facility] [address] [id number], [place] [address]- 4735 Nov, [facility] [place] [facility] [address] [id number], [place] [address]- 3330 Nov, [facility] [place] [facility] [address] [id number], [place] [address]- 2754 17 Nov, 2013 [facility] [place] [facility] [address] [id number] [place] [address]- 0744 Nov, [facility] [place] [facility] [address] [id number][place] [address]- 9074 14 Nov, 2013 [facility] [place] [facility] [address] [id number], [place] [address]- 7965 Nov, [facility] [place] [facility] [address] [id number][place] [address]- 2040 Nov, [facility] [place] [facility] [address] [id number] [place] [address]- 9642 Nov, [facility] [place] [facility] [address] [id number] [place] [address]- 7677 Nov, [facility] [place] [facility] [address] [id number] [place] [address]- 8313 Nov, [facility] [place] [facility] [address] [id number] [place] [address]- 8177 Nov, [facility] [place] [facility] [address] [id number] [place] [address]- 5628 Oct, [facility] [place] [facility] [address] [id number] [place] [address]- 2777 Oct, 2013 [facility] [place] [facility] [address] [id number] [place] [address]- 8186 Oct, [facility] [place] [facility] [address] [id number] [place] [address]- 2164 Oct, 2013 [facility] [place] [facility] [address] [id number] [place] [address]- 2994 Oct, [facility] [place] [facility] [address] [id number] [place] [address]- 6539 12 Oct, 2013 [facility] [place] [facility] [address] [id number] [place] [address]- 2341 Oct, [facility] [place] [facility] [address] [id number], [place] [address]- 2540 10 Oct, 2013 [facility] [place] [facility] [address] [id number] [place] [address]- 1365 08 Oct, 2013 [facility] [place] [facility] [address] [id number], [place] [address]- 5876 08 Oct, 2013 [facility] [place] [facility] [address] [id number] [place] [address]- 1002 Sep, [facility] [place] [facility] [address] [id number] [place] [address]- 6884 Sep, [facility] [place] [facility] [address] [id number] [place] [address]- 7513 Sep, [facility] [place] [facility] [address] [id number] [place] [address]- 7688 Sep, [facility] [place] [facility] [address] [id number] [place] [address]- 4769 Sep, [facility] [place] [facility] [address] [id number] [place] [address]- 2860 Sep, [facility] [place] [facility] [address] [id number] [place] [address]- 6242 Sep, [facility] [place] [facility] [address] [id number] [place] [address]- 6159 Sep, [facility] [place] [facility] [address] [id number] [place] [address]- 1951 Sep, [facility] [place] [facility] [address] [id number] [place] [address]- 5962 Sep, [facility] [place] [facility] [address] [id number] [place] [address]- 0761 Sep, [facility] [place] [facility] [address] [id number] [place] [address]- 8419 Sep, [facility] [place] [facility] [address] [id number] [place] [address]- 3463 Sep, [facility] [place] [facility] [address] [id number] [place] [address]- 5668 Sep, [facility] [place] [facility] [address] [id number] [place] [address]- 0146 Sep, [facility] [place] [facility] [address] [id number] [place] [address]- 8348 Sep, [facility] [place] [facility] [address] [id number] [place] [address]- 5458 Sep, [facility] [place] [facility] [address] [id number] [place] [address]- 5689 Sep, [facility] [place] [facility] [address] [id number] [place] [address]- 6537 Sep, [facility] [place] [facility] [address] [id number] [place] [address]- 2967 Sep, [facility] [place] [facility] [address] [id number] [place] [address]- 7217 Sep, [facility] [place] [facility] [address] [id number] [place] [address]- 6131 Sep, [facility] [place] [facility] [address] [id number] [place] [address]- 3546 Sep, [facility] [place] [facility] [address] [id number] [place] [address]- 6016 Sep, [facility] [place] [facility] [address] [id number] [place] [address]- 9660 Sep, [facility] [place] [facility] [address] [id number] [place] [address]- 1631 Aug, [facility] [place] [facility] [address] [id number] [place] [address]- 1223 Aug, [facility] [place] [facility] [address] [id number] [place] [address]- 8131 Aug, [facility] [place] [facility] [address] [id number] [place] [address]- 5719 Aug, [facility] [place] [facility] [address] [id number] [place] [address]- 3655 Aug, [facility] [place] [facility] [address] [id number] [place] [address]- 7790 Aug, [facility] [place] [facility] [address] [id number] [place] [address]- 9578 Aug, [facility] [place] [facility] [address] [id number] [place] [address]- 8096 Aug, [facility] [place] [facility] [address] [id number] [place] [address]- 4039 Aug, [facility] [place] [facility] [address] [id number] [place] [address]- 2576 Aug, [facility] [place] [facility] [address] [id number] [place] [address]- 8901 Aug, [facility] [place] [facility] [address] [id number] [place] [address]- 0218 Aug, [facility] [place] [facility] [address] [id number] [place] [address]- 1197 Aug, [facility] [place] [facility] [address] [id number] [place] [address]- 6481 Jul, [facility] [place] [facility] [address] [id number] [place] [address]- 6923 Jul, [facility] [place] [facility] [address] [id number] [place] [address]- 5573 Jul, [facility] [place] [facility] [address] [id number] [place] [address]- 5695 Jul, [facility] [place] [facility] [address] [id number] [place] [address]- 6517 Jul, [facility] [place] [facility] [address] [id number] [place] [address]- 5746 Jul, [facility] [place] [facility] [address] [id number] [place] [address]- 1925 Jul, [facility] [place] [facility] [address] [id number] [place] [address]- 8674 June, [facility] [place] [facility] [address] [id number] [place] [address]- 0570 June, [facility] [place] [facility] [address] [id number] [place] 5526 June, [facility] [place] [facility] [address] [id number] [place] [address]- 5315 June, [facility] [place] [facility] [address] [id number] [place] [address]- 8596 May, [facility] [place] [facility] [address] [id number] [place] [address]- 3244 May, [facility] [place] [facility] [address] [id number] [place] [address]- 4769 May, [facility] [place] [facility] [address] [id number] [place] [address]- 1388 May, [facility] [place] [facility] [address] [id number] [place] [address]- 8479 May, [facility] [place] [facility] [address] [id number] [place] [address]- 5242 May, [facility] [place] [facility] [address] [id number] [place] [address]- 1519 May, [facility] [place] [facility] [address] [id number] [place] [address]- 9444 May, [facility] [place] [facility] [address] [id number] [place] [address]- 5268 May, [facility] [place] [facility] [address] [id number] [place] [address]- 5486 May, [facility] [place] [facility] [address] [id number] [place] [address]- 9297 Apr, [facility] [place] [facility] [address] [id number] [place] [address]- 9009 Apr, [facility] [place] [facility] [address] [id number] [place] [address]- 2081 Apr, [facility] [place] [facility] [address] [id number] [place] [address]- 1618 Apr, [facility] [place] [facility] [address] [id number] [place] [address]- 4141 Apr, [facility] [place] [facility] [address] [id number] [place] [address]- 4316 Apr, [facility] [place] [facility] [address] [id number] [place] [address]- 2436 Apr, [facility] [place] [facility] [address] [id number] [place] [address]- 1016 Apr, [facility] [place] [facility] [address] [id number] [place] [address]- 9631 Apr, [facility] [place] [facility] [address] [id number] [place] [address]- 7341 Apr, [facility] [place] [facility] [address] [id number] [place] [address]- 5008 Mar, [facility] [place] [facility] [address] [id number] [place] [address]- 8071 Mar, [facility] [place] [facility] [address] [id number] [place] [address]- 0656 Mar, [facility] [place] [facility] [address] [id number] [place] [address]- 1990 Mar, [facility] [place] [facility] [address] [facility] [id number] [place] [address]- 3369 Mar, [facility] [place] [facility] [address] [id number] [place] [address]- 3487 Mar, [facility] [place] [facility] [address] [id number] [place] [address]- 0426 Jan, [facility] [place] [facility] [address] [id number] [place] [address]- 0251 Jan, [facility] [place] [facility] [address] [id number] [place] [address]- 2223 Jan, [facility] [place] [facility] [address] [id number] [place] [address]- 9498 Jan, [facility] [place] [facility] [address] [id number] [place] [address]- 6056 Jan, [facility] [place] [facility] [address] [id number] [place] [address]- 5699 Jan, [facility] [place] [facility] [address] [id number] [place] [address]- 5917 Jan, [facility] [place] [facility] [address] [id number] [place] [address]- 4730 Jan, [facility] [place] [facility] [address] [id number] [place] [address]- 3037 Jan, [facility] [place] [facility] [address] [id number] [place] [address]- 4458 Dec, [facility] [place] [facility] [address] [id number] [place] [address]- 7156 Dec, [facility] [place] [facility] [address] [id number] [place] [address]- 6796 Dec, [facility] [place] [facility] [address] [id number] [place] [address]- 1818 Dec, [facility] [place] [facility] [address] [id number] [place] [address]- 4490 Dec, [facility] [place] [facility] [address] [id number] [place] [address]- 8080 Dec, [facility] [place] [facility] [address] [id number] [place] [address]- 4616 Dec, [facility] [place] [facility] [address] [id number] [place] [address]- 6586 Dec, [facility] [place] [facility] [address] [id number] [place] [address]- 1792 Dec, [facility] [place] [facility] [address] [id number] [place] [address]- 3457 Dec, [facility] [place] [facility] [address] [id number] [place] [address]- 6427 Dec, [facility] [place] [facility] [address] [id number] [place] [address]- 7111 Nov, [facility] [place] [facility] [address] [id number] [place] [address]- 1026 Nov, [facility] [place] [facility] [address] [id number] [place] [address]- 9637 Nov, [facility] [place] [facility] [address] [id number] [place] [address]- 3731 Nov, [facility] [place] [facility] [address] [id number] [place] [address]- 3224 Nov, [facility] [place] [facility] [address] [id number] [place] [address]- 8314 Oct, [facility] [place] [facility] [address] [id number] [place] [address]- 1945 Oct, [facility] [place] [facility] [address] [id number] [place] [address]- 3903 Sep, [facility] [place] [facility] [address] [id number] [place] [address]- 1888 Aug, [facility] [place] [facility] [address] [id number] [place] [address]- 4743 Aug, [facility] [place] [facility] [address] [id number] [place] [address]- 1025 Aug, [facility] [place] [facility] [address] [id number], [place] [address] 2547 Aug, [facility] [place] [facility] [address] [id number] [place] [address]- 4214 Jul, [facility] [place] [facility] [address] [id number] [place] [address] 2541 Jul, [facility] [place] [facility] [address] [id number] [place] [address] 2540 June, [facility] [place] [facility] [address] [id number] [place] [address]- 1917 June, [facility] [address] [id number] [place] [address]- 5972 June, [facility] [address] [id number] [place] [address]- 7453 May, [facility] [address] [id number] [place] [address]- 2598 May, [facility] [address] [id number] [place] [address]- 8663 May, [facility] [address] [id number] [place] [address]- 3168 Apr, [facility] [address] [id number] [place] [address] 18 Apr, 2012 [facility] [address] [id number] [place] [address] 15 Apr, 2012 [facility] [address] [id number] [place] [address] 14 Apr, 2012 [facility] [address] [id number] [place] [address] Apr, [facility] [address] [facility] [id number] [place] [address] Apr, [facility] [address] [id number] [place] [address] Apr, [facility] [address] [id number] [place] [address] Apr, [facility] [address] [id number] [place] [address] Apr, [facility] [address] [id number] [place] [address] Apr, [facility] [address] [id number] [place] [address] Apr, [facility] [place] [facility] [address] [id number] [place] [address] Apr, [facility] [place] [facility] [address] [id number] [place] [address] Apr, [facility] [place] [facility] [address] [facility] [id number] [place] [address] Mar, [facility] [place] [facility] [address] [id number] [place] [address] Mar, [facility] [place] [facility] [address] [id number] [place] [address] Mar, [facility] [place] [facility] [address] [id number] [place] [address] Mar, [facility] [place] [facility] [address] [id number] [place] [address] Mar, [facility] [place] [facility] [address] [id number] [place] [address] 68[address] Jan, [facility] [place] [facility] [address] [id number] [place] [address]- [address] 28 Jan, 2012 [facility] [place] [facility] [address] [id number] [place] [address] Jan, [facility] [place] [facility] [address] [id number] [place] [address]120 22 Jan, 2012 [facility] [place] [facility] [address] [id number] [place] [address] 14 Jan, 2012 [facility] [place] [facility] [address] [id number] [place] [address]- 1171 13 Jan, 2012 [facility] [place] [facility] [address] [id number] [place] [address] 2616 13 Jan, 2012 [facility] [place] [facility] [address] [facility] [id number] [place] [address]- 4[address] 11 Jan, 2012 [facility] [place] [facility] [address] [id number] [place] [address]- [address] 06 Jan, 2012 [facility] [address] [id number] [place] [address] 06 Jan, 2012 [facility] [place] [facility] [address] [id number] [place] [address] Jan, [facility] [address] [id number] [place] [address] 7028 Jan, [facility] [place] [facility] [address] [id number] [place] [address] Jan, [facility] [address] [id number] [place] [address] Jan, [facility] [address] [id number] [place] [address] Dec, [facility] [place] [facility] [address] [id number] [place] [address]- 0[address] 26 Jan, 2012 [facility] [address] [id number] [place] [address] 7788 19 Jan, 2012 [facility] [place] [facility] [address] [id number] [place] [address] 6974 19 Jan, 2012 [facility] [address] [facility] [id number] [place] [address] 15 Jan, 2012 [facility] [place] [facility] [address] [id number] [place] [address] 3840 15 Jan, 2012 [facility] [place] [facility] [address] [id number] [place] [address] 14 Jan, 2012 [facility] [place] [facility] [address] [id number] [place] [address]- 8314 14 Jan, 2012 [facility] [place] [facility] [address] [facility] [id number] [place] [address]- 2665 14 Jan, 2012 [facility] [place] [facility] [address] [id number] [place] [address]- 7165 14 Jan, 2012 [facility] [place] [facility] [address] [id number] [place] [address]- 6[address] 07 Jan, 2012 [facility] [place] [facility] [address] [id number] [place] [address]- 6965 Dec, [facility] [place] [facility] [address] [id number] [place] [address]- 6612 16 Dec, 2011 [facility] [place] [facility] [address] [id number] [place] [address]- [address]115 16 Dec, 2011 [facility] [place] [facility] [address] [id number] [place] [address]- 0912 13 Nov, 2011 [facility] [place] [facility] [address] [id number] [place] [address]- 5462 13 Nov, 2011 [facility] [place] [facility] [address] [id number] [place] [address]- 9376 13 Nov, 2011 [facility] [place] [facility] [address] [id number] [place] [address]- 3677 12 Nov, 2011 [facility] [place] [facility] [address] [id number] [place] [address]- [address]27 Sep, [facility] [place] [facility] [address] [id number], [place] [address] Sep, [facility] [place] [facility] [address] [id number] [place] [address]- 58[address] Aug, [facility] [place] [facility] [address] [id number], [place] [address] Aug, [facility] [place] [facility] [address] [id number] [place] [address]- 5358 Aug, [facility] [place] [facility] [address] [id number] [place] [address]- [address]598 Aug, [facility] [place] [facility] [address] [facility] [id number], [place] [address] June, [facility] [place] [facility] [address] [id number], [place] [address] June, [facility] [address] [id number] [place] [address] 1716 May, [facility] [place] [facility] [address] [id number] [place] [address]- [address]356 Apr, [facility] [address] [id number] [place] [address]- 5006 Apr, [facility] [address] [id number] [place] [address] 2546 Apr, [facility] [address] [id number] [place] [address]- 5926 Apr, [facility] [address] [id number] [place] [address]- 4946 Apr, [facility] [address] [id number] [place] [address]- 3486 Apr, [facility] [address] [id number] [place] [address]- 0347 Mar, [facility] [address] [id number] [place] [address]- 2915 Mar, [facility] [address] [id number] [place] [address] 6[address] Mar, [facility] [address] [id number] [place] [address]- 2465 Jan, [facility] [place] [facility] [address] [id number] [place] [address]- 2762 Jan, [facility] [place] [facility] [address] [id number] [place] [address]- 1767 Jan, [facility] [place] [facility] [address] [id number] [place] [address]- 6566 Jan, [facility] [place] [facility] [address] [facility] [id number] [place] [address] Jan, [facility] [place] [facility] [address] [id number] [place] [address] Jan, [facility] [place] [facility] [address] [id number] [place] Jan, [facility] [place] [facility] [address] [id number] [place] [address] Dec, [facility] [place] [facility] [address] [id number] [place] [address] Dec, [facility] [place] [facility] [address] [id number] [place] [address] Nov, [facility] [place] [facility] [address] [id number] [place] [address] Nov, [facility] [place] [facility] [address] [id number] [place] [address] Nov, [facility] [place] [facility] [address] [id number] [place] [address] Nov, [facility] [place] [facility] [address] [id number] [place] [address] Oct, [facility] [place] [facility] [address] [id number] [place] [address] Sep, [facility] [place] [facility] [address] [id number] [place] [address] Mar, [facility] [place] [facility] [address] [id number] [place] [address] Jan, [facility] [place] [facility] [address] [id number] [place] [address] Dec, [facility] [place] [facility] [address] [id number] [place] [address] Dec, [facility] [place] [facility] [address] [id number] [place] [address] Dec, [facility] [place] [facility] [address] [id number] [place] [address] Dec, [facility] [address] [id number] [place] [address] 26 Nov, 2009 [facility] [place] [facility] [address] [id number] [place] [address] 15 Nov, 2009 [facility] [place] [facility] [address] [facility] [id number] [place] [id number] 14 Nov, 2009 [facility] [place] [facility] [address] [id number] [place] [address] 14 Nov, 2009 [facility] [place] [facility] [address] [id number] [place] [address] 13 Oct, 2009 [facility] [place] [facility] [address] [id number], [place] [address] 17 Jul, 2009 [facility] [place] [facility] [address] [facility] [id number] [place] [address] June, [facility] [place] [facility] [address] [id number], [place] [address] June, [facility] [place] [facility] [address] [id number], [place] [address] 17 Apr, 2009 [facility] [place] [facility] [address] [id number], [place] [address] Mar, [facility] [place] [facility] [address] [id number], [place] [address] Jan, [facility] [place] [facility] [address] [id number], [place] [address] Jan, [facility] [place] [facility] [address] [id number], [place] [address] Dec, [facility] [place] [facility] [address] [facility] [id number], [place] [address] Dec, [facility] [place] [facility] [address] [facility] [id number], [place] [address] 13 Dec, 2008 [facility] [place] [facility] [address] [facility] [id number] [place] [address] Dec, [facility] [address] [facility] [id number] [place] [address] Nov, [facility] [address] [facility] [id number] [place] [address] Jul, [facility] [address] [facility] [id number], [place] [address] June, IMMUNIZATIONS No Known Immunizations SOCIAL HISTORY Never Assessed REASON FOR VISIT Refill Request PLAN OF CARE VITAL SIGNS MEDICATIONS Unknown Medications RESULTS No Results PROCEDURES No Known procedures INSTRUCTIONS MEDICATIONS ADMINISTERED No Known Medications MEDICAL (GENERAL) HISTORY Type Description Date Medical History hypertension Medical History sleep apnea-did not tolerate CPAP Medical History oxygen dependent at [facility] Medical History colonic polyps Medical History hyperlipidemia [...]
--- OUTSIDE RECORDS SUMMARY | 2018-02-26 19:21 | XMS REPORT ---
Author Author [facility] Address [address] [place] [address] Care Team Providers Care Windows Architect Name Role Phone GRAHAMELLIOTT HANNAHANY Unavailable PROBLEMS Type Condition ICD9-CM Code [id number] Code Onset Dates Condition Status SNOMED Code Problem Pulmonary asbestosis J61 Active 76965363 Problem Left ventricular diastolic dysfunction I51.9 Active 216383745 Problem Chronic gout, unspecified cause, unspecified site [id number].[id number] Active 32430232 Problem Renal cyst, left N28.1 Active 21705523 Problem History of weight loss surgery Z98.84 Active 765344865 Problem Nocturnal hypoxia G47.34 Active 431218879 Problem Obstructive sleep apnea syndrome G47.33 Active 52396129 Problem History of diverticulitis Z87.19 Active 621083485704923 Problem Allergic rhinitis, unspecified allergic rhinitis type J30.9 Active 80730083 Problem Erectile dysfunction due to diseases classified elsewhere N52.1 Active 742382954 Problem Acute right-sided low back pain with right-sided sciatica M54.41 Active 509761530 Problem Psoriasis L40.9 Active 1400201 Problem Essential hypertension I10 Active 67543279 Problem Nephrolithiasis N20.0 Active 24429293 Problem Chronic prescription opiate use Z79.899 Active 619941472 Problem 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 Active 07622753 Problem Benign prostatic hyperplasia, presence of lower urinary tract symptoms unspecified, unspecified morphology N40.0 Active 053428433 Problem Moderate episode of recurrent major depressive disorder F33.1 Active 480743939 Problem Age-related osteoporosis without current pathological fracture M81.0 Active 88389688 Problem Low back pain M54.5 Active 337288972 Problem Anxiety F41.9 Active 26306745 Problem Urge incontinence N39.41 Active 378228386 Problem Hyperlipidemia, unspecified E78.5 Active 47639044 Problem Esophageal stricture K22.2 Active 77547637 Problem Cervicalgia M54.2 Active 8554476427614 Problem Primary insomnia F51.01 Active 550366798 ALLERGIES No Information ENCOUNTERS Encounter Location Date Diagnosis [facility] [id number] [place] [address] 40030- 6515 Jul, Anxiety F41.9 [facility] [id number] [place] [address] 75883- 0544 June, Anxiety F41.9 [facility] [address] 01062- 0506 June, [facility] [address] 53955- 8556 June, Low back pain M54.5 ; Chronic prescription opiate use Z79.899 ; Candidal intertrigo B37.2 ; Urge incontinence N39.41 ; Essential hypertension I10 ; Moderate episode of recurrent major depressive disorder F33.1 ; Age-related osteoporosis without current pathological fracture M81.0 and BMI 45.0-49.9, adult Z68.42 [facility] [id number] [place] [address] 40639- 0272 June, [facility] [address] 37896- 1612 May, Anxiety F41.9 [facility] [id number] [place] [address] 43424- 1820 May, [facility] [id number] [place] [address] 43293- 3856 May, [facility] [id number] [place] [address] 55539- 9016 Apr, Anxiety F41.9 [facility] [id number] [place] [address] 64501- 5056 Apr, [facility] [id number] [place] [address] 97351- 8460 Apr, Low back pain M54.5 [facility] [address] [place] [address]- 2117 Apr, [facility] [id number] [place] [address] 64461- 7066 Apr, [facility] [id number] [place] [address] 57104- 5703 Apr, Anxiety F41.9 [facility] [id number] [place] [address] 73354- 9265 Apr, Right groin pain R10.31 [facility] [id number] [place] [address] 16773- 9402 Mar, [facility] [id number] [place] [address] 45668- 8315 Mar, [facility] [id number] [place] [address] 49959- 1208 Mar, Anxiety F41.9 [facility] [id number] [place] [address] 86690- 7727 Mar, Low back pain M54.5 [facility] [id number] [place] [address] 25581- 7507 Mar, Right groin pain R10.31 ; Low back pain M54.5 and BMI 45.0- 49.9, adult Z68.42 [facility] [id number] [place] [address] 19464- 2984 Mar, [facility] [id number] [place] [address] 90914- 6482 Mar, [facility] [id number] [place] [address] 48453- 4138 Mar, [facility] [id number] [place] [address] 22025 -7609 Mar, [facility] [id number] [place] [address] 12002 -6325 Mar, Cough R05 ; Pneumonia of right lower lobe due to infectious organism J18.1 and Abnormal chest x-ray R93.8 [facility] [id number] [place] [address] 48715- 8244 Mar, [facility] [id number] [place] [address] 69476- 8153 Mar, [facility] [id number] [place] [address] 27550- 1563 Jan, Anxiety F41.9 [facility] [id number] [place] [address] 05662- 8531 Jan, [facility] [id number] [place] [address] 50274- 5460 Jan, Moderate episode of recurrent major depressive disorder F33.1 [facility] [id number] [place] [address] 91995- 0477 Jan, Subacromial bursitis of right shoulder joint M75.51 ; Shortness of breath on exertion R06.02 and BMI 45.0-49.9, adult Z68.42 [facility] [id number] [place] [address] 90965- 1487 Dec, Anxiety F41.9 [facility] [id number] [place] [address] 11670- 6440 Dec, [facility] [id number] [place] [address] 66740- 3241 Dec, Low back pain M54.5 [facility] [id number] [place] [address] 47338- 0116 Oct, Low back pain M54.5 [facility] [id number] [place] [address] 10302- 8183 Sep, [facility] [id number] [place] [address] 06217- 6920 Sep, Erectile dysfunction due to diseases classified elsewhere N52.1 [facility] [id number] [place] [address] 15572- 9256 Sep, Erectile dysfunction due to diseases classified elsewhere N52.1 [facility] [id number] [place] [address] 48758- 7377 Sep, [facility] [id number] [place] [address] 51661- 1138 Sep, Erectile dysfunction due to diseases classified elsewhere N52.1 [facility] [id number] [place] [address] 01830- 3574 Sep, Low back pain M54.5 and Anxiety F41.9 [facility] [id number] [place] [address] 87620 -0600 Aug, Acute allergic rhinitis J30.9 [facility] [id number] [place] [address] 30983- 9324 Aug, [facility] [address] 09112- 0090 Aug, Anxiety F41.9 [facility] [id number] [place] [address] 87613- 0616 Jul, Low back pain M54.5 ; Chronic prescription opiate use Z79.899 and Essential hypertension I10 [facility] [id number] [place] [address] 13698- 1687 Jul, Anxiety F41.9 and Low back pain M54.5 [facility] [id number] [place] [address] 55740- 7629 June, [facility] [id number] [place] [address] 72918- 5842 June, Anxiety F41.9 [facility] [id number] [place] [address] 94907- 5730 May, Low back pain M54.5 [facility] [id number] [place] [address] 40740- 0748 May, [facility] [id number] [place] [address] 70566- 1197 May, Anxiety F41.9 [facility] [id number] [place] [address] 85713- 5535 Apr, [facility] [id number] [place] [address] 59520- 0011 Apr, Low back pain M54.5 [facility] [id number] [place] [address] 07949- 1631 Apr, Moderate episode of recurrent major depressive disorder F33.1 [facility] [address] 24929- 2075 06 Apr, 2016 Anxiety F41.9 [facility] [id number] [place] [address] 63998- 6236 Apr, Low back pain M54.5 [facility] [id number] [place] [address] 10965- 8416 15 Apr, 2016 Elevated alkaline phosphatase level R74.8 [facility] [id number] [place] [address] 42086- 9383 10 Apr, 2016 Alkaline phosphatase elevation R74.8 [facility] [id number] [place] [address] 32091- 2047 06 Apr, 2016 Anxiety F41.9 [facility] [id number] [place] [address] 32371- 6415 03 Apr, 2016 Low back pain M54.5 [facility] [id number] [place] [address] 24098- 1224 03 Apr, 2017 History of weight loss surgery Z98.84 ; Encounter for hepatitis C screening test for low risk patient Z11.59 ; History of herpes genitalis Z86.19 ; Essential hypertension I10 ; Hyperlipidemia, unspecified E78.5 ; Exposure to STD Z20.2 and Benign prostatic hyperplasia, presence of lower urinary tract symptoms unspecified, unspecified morphology N40.0 [facility] [id number] [address]- 0824 02 Apr, 2016 [place] [id number] [place] [address] 80992- 5969 Mar, [facility] [id number] [address]- 9740 Mar, [facility] [facility] [id number] [place] [address] 41724- 2575 Mar, [facility] [facility] [id number] [place] [address] 10232- 6848 Mar, Acute right-sided low back pain with right-sided sciatica M54.41 [facility] [id number] [place] [address] 58115- 1896 Mar, Low back pain M54.5 [facility] [id number] [place] [address] 66046 -3764 Mar, Muscle strain of chest wall, initial encounter S29.011A ; Muscle strain of right thigh, initial encounter S76.911A and Acute non- recurrent maxillary sinusitis J01.00 [place] [facility] [id number] [place] [address] 37254- 3115 Mar, Benign prostatic hyperplasia, presence of lower urinary tract symptoms unspecified, unspecified morphology N40.0 [place] [facility] [id number] [address]- 6083 Jan, Low back pain M54.5 [facility] [facility] [id number] [place] [address] 99027- 5607 13 Jan, 2016 Low back pain M54.5 ; Essential hypertension I10 ; Hyperlipidemia, unspecified E78.5 ; Anxiety F41.9 ; Moderate episode of recurrent major depressive disorder F33.1 ; Primary insomnia F51.01 ; Exposure to STD Z20.2 ; Encounter for hepatitis C screening test for low risk patient Z11.59 and History of herpes genitalis Z86.19 [facility] [id number] [address]- 4361 Dec, [facility] [id number] [place] [address] 86592- 1753 Nov, [facility] [id number] [place] [address] 34440- 8506 Nov, Anxiety F41.9 ; Cervicalgia M54.2 ; Moderate episode of recurrent major depressive disorder F33.1 and Encounter for immunization Z23 [facility] [id number] [place] [address] 56121- 5697 Oct, [facility] [id number] [place] [address] 19629- 8144 22 Nov, 2015 [facility] [id number] [place] [address] 50996- 6333 16 Nov, 2015 [facility] [id number] [place] [address] 18972- 8187 Oct, [facility] [id number] [place] [address] 21710- 7087 Sep, [facility] [id number] [place] [address] 94539- 6823 Aug, Low back pain M54.5 ; Anxiety F41.9 ; Primary insomnia F51.01 and Chronic prescription opiate use Z79.899 [facility] [id number] [place] [address] 22048- 8179 Jul, [facility] [id number] [place] [address] 31905- 4772 Jul, [facility] [id number] [place] [address] 54430- 8816 Jul, [facility] [id number] [place] [address] 88099- 2367 Jul, [facility] [id number] [place] [address] 97816- 3260 Jul, [facility] [id number] [address]- 1859 June, [facility] [id number] [place] [address] 61198- 8378 June, [facility] [id number] [address]- 0802 June, [facility] [id number] [place] [address] 27661- 7947 June, [facility] [id number] [place] [address] 01821- 8170 May, Preoperative cardiovascular examination Z01.810 [facility] [id number] [place] [address] 84636- 4478 May, [facility] [id number] [place] [address] 21457- 8609 Apr, [facility] [id number] [place] [address] 23300- 1981 Apr, Osteoarthritis of right knee M17.9 [facility] [id number] [place] [address] 41163- 6066 Apr, [facility] [id number] [place] [address] 72619- 6985 Apr, [facility] [id number] [address]- 6472 Apr, [facility] [id number] [address]- 7427 Apr, [facility] [id number] [place] [address] 60822- 1119 08 May, 2015 History of excessive cerumen Z78.9 ; Obstructive sleep apnea syndrome G47.33 ; History of diverticulitis Z87.19 and Nephrolithiasis N20.0 [facility] [id number] [address]- 5383 Apr, [facility] [id number] [address] -6760 Apr, Abdominal pain R10.9 [facility] [id number] [place] [address] 56956- 6415 Apr, [facility] [id number] [place] [address] 19890- 8514 Apr, Osteoarthritis of right knee M17.9 [facility] [id number] [place] [address] 75554- 5032 Mar, [facility] [facility] [id number] [place] [address] 47323- 6632 Mar, [facility] [id number] [place] [address] 06314- 5745 Mar, [place] [facility] [id number] [place] [address] 98655- 5367 Mar, [facility] [id number] [place] [address] 11941 -4446 Mar, Pyelonephritis N12 ; Left-sided thoracic back pain M54.6 ; Hematuria, unspecified R31.9 and Kidney stone N20.0 [facility] [facility] [id number] [place] [address] 95572- 4116 Mar, History of weight loss surgery Z98.84 [facility] [id number] [place] [address] 81701- 1912 Mar, History of weight loss surgery Z98.84 and Hyperlipidemia, unspecified E78.5 [facility] [id number] [place] [address] 89970- 0827 Mar, Low back pain M54.5 ; Chronic prescription opiate use Z79.899 ; Hyperlipidemia, unspecified E78.5 ; Spasm of back muscles M62.830 and History of weight loss surgery Z98.84 [facility] [id number] [place] [address] 11740- 4601 Jan, [facility] [id number] [address]- 6559 Jan, [facility] [id number] [place] [address] 070106- 1204 Jan, [facility] [id number] [place] [address] 734807- 1959 Dec, [facility] [id number] [place] [address] 84266- 9347 Dec, [facility] [id number] [place] [address] 40413- 7403 Dec, [facility] [id number] [place] [address] 709002- 3531 Nov, [facility] [id number] [place] [address] 01962- 7747 Nov, Obstructive sleep apnea syndrome G47.33 and Pharyngoesophageal dysphagia R13.14 [facility] [id number] [address]- 7318 Nov, [facility] [id number] [place] [address] 25498- 2573 Nov, [facility] [id number] [address]- 9481 Nov, [facility] [id number] [place] [address] [id number] 30 Oct, 2014 Dental examination V72.2 [facility] [id number] [address]- 8412 Oct, [facility] [id number] [place] [address] 758545- 5257 Oct, [facility] [id number] [address] 9853 Oct, [facility] [id number] [place] [address] 66447- 7868 Oct, [facility] [id number] [place] [address] 88979- 1429 Oct, BPH (benign prostatic hyperplasia) 600.00 and Urinary frequency 788.41 [facility] [id number] [place] [address] 13325- 3763 Oct, [facility] [address] 75845- 4253 Oct, [facility] [address] 40480- 5533 Oct, [facility] [address] 01047- 6372 Sep, Cerumen impaction 380.4 ; Cerumen debris on tympanic membrane 380.4 ; Psoriasis 696.1 and MICKY (secretory otitis media) 381.4 [facility] [id number] [place] [address] [id number] Sep, Dental examination V72.2 [facility] [id number] [place] [address] 97030- 3311 Sep, Fatigue 780.79 ; Irritable bowel syndrome 564.1 ; Overweight 278.02 ; Poor sleep V69.4 ; Shaking spells 781.0 and Broken tooth 873.63 [facility] [id number] [place] [address] 89286- 9734 Sep, [facility] [id number] [place] [address] 52353- 9962 Sep, [facility] [id number] [place] [address] 82369- 4732 Aug, [facility] [id number] [place] [address] 76069- 1909 Jul, [facility] [id number] [place] [address] 22313- 2109 Jul, [facility] [address] [id number] [place] [address]- 3426 Jul, [facility] [address] [facility] [id number] [place] [address]- 4722 Jul, [facility] [address] [facility] [id number] [place] [address]- 6409 June, Arthritis of knee, right 716.96 [facility] [address] [facility] [id number] [place] [address]- 0749 June, [facility] [address] [facility] [id number] [place] [address]- 6354 June, Elevated blood pressure reading without diagnosis of hypertension 796.2 [facility] [address] [facility] [id number] [place] [address]- 4924 June, [facility] [id number] [place] [address]- 4039 June, [facility] [id number] [place] [address]- 2548 June, [facility] [id number] [place] [address]- 9242 June, [facility] [id number] [place] [address]- 7404 May, [facility] [id number] [place] [address]- 3488 May, [facility] [address] [facility] [id number] [place] [address]- 9372 Apr, [facility] [address] [id number] [place] [address] Apr, [facility] [address] [facility] [id number] [place] [address] Apr, [facility] [address] [id number] [address] Apr, [facility] [place] [facility] [address] [id number] [place] [address] 20 Apr, 2014 [facility] [place] [facility] [address] [id number] [place] [address] 20 Apr, 2014 [facility] [place] [facility] [address] [id number] [place] [address] 13 Apr, 2014 [facility] [place] [facility] [address] [id number] [place] [address] 13 Apr, 2014 [facility] [place] [facility] [address] [id number] [place] [address] Apr, 2014 [facility] [place] [facility] [address] [id number] [place] [address] Apr, 2014 [facility] [place] [facility] [address] [id number] [place] [address] Apr, 2014 [facility] [place] [facility] [address] [id number] [place] [address] Apr, 2014 [facility] [place] [facility] [address] [id number] [place] [address] 24 Apr, 2014 [facility] [place] [facility] [address] [facility] [id number] [place] [address] 24 Apr, 2014 [facility] [place] [facility] [address] [facility] [id number] [place] [address] 23 Apr, 2014 [facility] [place] [facility] [address] [id number] [place] [address]- [address] 23 Apr, 2014 [facility] [place] [facility] [address] [id number] [place] [address] Apr, 2014 [facility] [place] [facility] [address] [id number] [place] [address] 20 Apr, 2014 [facility] [place] [facility] [address] [facility] [id number] [place] [address] 18 Apr, 2014 [facility] [place] [facility] [address] [id number] [place] [address]- [address] 18 Apr, 2014 [facility] [place] [facility] [address] [facility] [id number] [place] [address] Apr, 2014 [facility] [place] [facility] [address] [facility] [id number] [place] [address] Apr, 2014 [facility] [place] [facility] [address] [facility] [id number] [place] [address] Apr, 2014 [facility] [place] [facility] [address] [facility] [id number] [place] [address] Apr, 2014 [facility] [place] [facility] [address] [facility] [id number] [place] [address] Apr, 2014 [facility] [place] [facility] [address] [id number] [address] Apr, 2014 [facility] [place] [facility] [id number] [address] Apr, 2014 [facility] [place] [facility] [address] [facility] [id number] [place] [address] Apr, 2014 [facility] [place] [facility] [address] [id number] [place] [address] Apr, 2014 [facility] [place] [facility] [address] [id number] [place] [address] Apr, 2014 [facility] [place] [facility] [address] [facility] [id number] [address] Apr, 2014 [facility] [place] [facility] [address] [facility] [id number] [place] [address]- 0223 Apr, 2014 [facility] [place] [facility] [address] [facility] [id number] [place] [address]- 7204 Apr, 2014 [facility] [place] [facility] [address] [facility] [id number] [place] [address] 6177 Mar, [facility] [place] [facility] [id number] [address] Mar, [facility] [place] [facility] [address] [id number] [place] [address] 8309 Mar, [facility] [place] [facility] [address] [id number] [place] [address]- 7742 Mar, [facility] [place] [facility] [address] [id number] [place] [address] 3308 Mar, [facility] [place] [facility] [address] [id number] [place] [address]- 1168 Mar, [facility] [place] [facility] [address] [id number] [place] [address]- 7352 Mar, [facility] [place] [facility] [address] [id number] [place] [address]- 4418 Mar, [facility] [place] [facility] [address] [id number] [place] [address]- 9384 Mar, [facility] [place] [facility] [address] [id number] [place] [address]- 0800 Mar, [facility] [place] [facility] [address] [id number] [place] [address]- 2747 Jan, [facility] [place] [facility] [address] [id number] [place] [address]- 7422 Jan, [facility] [place] [facility] [address] [id number] [place] [address]- 1023 Jan, [facility] [place] [facility] [address] [id number] [place] [address]- 5598 Jan, [facility] [place] [facility] [address] [id number] [place] [address] Jan, [facility] [place] [facility] [address] [id number] [place] [address]- 9670 Jan, [facility] [place] [facility] [address] [id number] [place] [address]- 9865 Jan, [facility] [place] [facility] [address] [id number] [place] [address]- 9082 05 Jan, 2014 [facility] [place] [facility] [address] [id number] [place] [address]- 7652 Jan, [facility] [place] [facility] [address] [id number] [place] [address]- 4893 Jan, [facility] [place] [facility] [address] [id number] [place] [address]- 9055 Jan, [facility] [place] [facility] [address] [id number] [place] [address]- 4832 Jan, [facility] [place] [facility] [address] [id number] [place] [address]- 2713 Dec, [facility] [place] [facility] [address] [id number] [place] [address]- 2699 Dec, [facility] [place] [facility] [address] [id number] [place] [address]- 7662 Dec, [facility] [place] [facility] [address] [id number] [place] [address]- 0299 Dec, [facility] [place] [facility] [address] [id number] [place] [address]- 4102 Dec, [facility] [place] [facility] [address] [id number] [place] [address]- 8586 Dec, [facility] [place] [facility] [address] [id number] [place] [address]- 6236 Dec, [facility] [place] [facility] [address] [id number] [place] [address]- 1061 Dec, [facility] [place] [facility] [address] [id number] [place] [address]- 8015 Dec, [facility] [place] [facility] [address] [id number] [place] [address]- 4319 Dec, [facility] [place] [facility] [address] [id number] [place] [address]- 2256 Nov, [facility] [place] [facility] [address] [id number] [place] [address]- 5670 31 Nov, 2013 [facility] [place] [facility] [address] [id number] [place] [address]- 8617 Nov, [facility] [place] [facility] [address] [id number] [place] [address]- 9283 Nov, [facility] [place] [facility] [address] [id number] [place] [address]- 5318 Nov, [facility] [place] [facility] [address] [id number] [place] [address]- 7372 Nov, [facility] [place] [facility] [address] [id number] [place] [address]- 6072 Nov, [facility] [place] [facility] [address] [id number] [place] [address]- 8149 Nov, [facility] [place] [facility] [address] [id number] [place] [address]- 8323 Nov, [facility] [place] [facility] [address] [id number] [place] [address]- 7308 24 Nov, 2013 [facility] [place] [facility] [address] [id number] [address]- 1432 Nov, [facility] [place] [facility] [address] [id number] [place] [address]- 3880 17 Nov, 2013 [facility] [place] [facility] [address] [id number] [place] [address]- 7277 14 Nov, 2013 [facility] [place] [facility] [address] [id number] [place] [address]- 8671 14 Nov, 2013 [facility] [place] [facility] [address] [id number] [place] [address]- 2683 10 Nov, 2013 [facility] [place] [facility] [address] [id number] [address]- 4744 10 Nov, 2013 [facility] [place] [facility] [address] [id number] [place] [address]- 9372 08 Nov, 2013 [facility] [place] [facility] [address] [id number] [place] [address]- 8279 Nov, [facility] [place] [facility] [address] [id number] [place] [address]- 6173 Nov, [facility] [place] [facility] [address] [id number] [place] [address]- 7512 Nov, [facility] [place] [facility] [address] [id number] [place] [address]- 3662 Oct, [facility] [place] [facility] [address] [id number] [place] [address]- 4573 Oct, [facility] [place] [facility] [address] [id number] [place] [address]- 3073 Oct, [facility] [place] [facility] [address] [id number] [place] [address]- 9385 Oct, [facility] [place] [facility] [address] [id number] [place] [address]- 2766 Oct, [facility] [place] [facility] [address] [id number] [place] [address]- 5580 Oct, [facility] [place] [facility] [address] [id number] [place] [address]- 7632 Oct, [facility] [place] [facility] [address] [id number] [place] [address]- 4396 Oct, [facility] [place] [facility] [address] [id number] [place] [address]- 5099 Oct, [facility] [place] [facility] [address] [id number] [place] [address]- 6607 Oct, [facility] [place] [facility] [address] [id number] [place] [address]- 7522 Sep, [facility] [place] [facility] [address] [id number] [place] [address]- 0690 Sep, [facility] [place] [facility] [address] [id number] [place] [address]- 3428 Sep, [facility] [place] [facility] [address] [id number] [place] [address]- 5980 Sep, [facility] [place] [facility] [address] [id number] [place] [address]- 5048 Sep, [facility] [place] [facility] [address] [id number] [place] [address]- 3368 Sep, [facility] [place] [facility] [address] [id number] [place] [address]- 5698 Sep, [facility] [place] [facility] [address] [id number] [place] [address]- 2994 Sep, [facility] [place] [facility] [address] [id number] [place] [address]- 0689 Sep, [facility] [place] [facility] [address] [id number] [place] [address]- 4562 Sep, [facility] [place] [facility] [address] [id number] [place] [address]- 2347 Sep, [facility] [place] [facility] [address] [id number] [place] [address]- 3736 Sep, [facility] [place] [facility] [address] [id number] [place] [address]- 6640 Sep, [facility] [place] [facility] [address] [id number] [place] [address]- 8211 Sep, [facility] [place] [facility] [address] [id number] [place] [address]- 7221 Sep, [facility] [place] [facility] [address] [id number] [place] [address]- 7775 Sep, [facility] [place] [facility] [address] [id number] [place] [address]- 0850 Sep, [facility] [place] [facility] [address] [id number] [place] [address]- 0001 Sep, [facility] [place] [facility] [address] [id number] [place] [address]- 4147 Sep, [facility] [place] [facility] [address] [id number] [place] [address]- 7009 Sep, [facility] [place] [facility] [address] [id number] [place] [address]- 6118 Sep, [facility] [place] [facility] [address] [id number] [place] [address]- 0651 Sep, [facility] [place] [facility] [address] [id number] [place] [address]- 2323 Sep, [facility] [place] [facility] [address] [id number] [place] [address]- 1873 Sep, [facility] [place] [facility] [address] [id number] [place] [address]- 0098 Sep, [facility] [place] [facility] [address] [id number] [place] [address]- 0456 Aug, [facility] [place] [facility] [address] [id number] [place] [address]- 1966 Aug, [facility] [place] [facility] [address] [id number] [place] [address]- 2290 Aug, [facility] [place] [facility] [address] [id number] [place] [address]- 2649 Aug, [facility] [place] [facility] [address] [id number] [place] [address]- 5846 Aug, [facility] [place] [facility] [address] [id number] [place] [address]- 9678 Aug, [facility] [place] [facility] [address] [id number] [place] [address]- 4442 Aug, [facility] [place] [facility] [address] [id number] [place] [address]- 7193 Aug, [facility] [place] [facility] [address] [id number] [place] [address]- 8028 Aug, [facility] [place] [facility] [address] [id number] [place] [address]- 9277 Aug, [facility] [place] [facility] [address] [id number] [place] [address]- 6668 Aug, [facility] [place] [facility] [address] [id number] [place] [address]- 9065 Aug, [facility] [place] [facility] [address] [id number] [place] [address]- 3765 Aug, [facility] [place] [facility] [address] [id number] [place] [address]- 9560 Jul, [facility] [place] [facility] [address] [id number] [place] [address]- 1541 Jul, [facility] [place] [facility] [address] [id number] [place] [address]- 0394 Jul, [facility] [place] [facility] [address] [id number] [place] [address]- 0903 Jul, [facility] [place] [facility] [address] [id number] [place] [address]- 2012 Jul, [facility] [place] [facility] [address] [id number] [place] [address]- 3641 Jul, [facility] [place] [facility] [address] [id number] [place] [address]- 6279 Jul, [facility] [place] [facility] [address] [id number] [place] [address]- 3648 June, [facility] [place] [facility] [address] [id number] [place] [address]- 0434 June, [facility] [place] [facility] [address] [id number] [place] [address]- 7574 June, [facility] [place] [facility] [address] [id number] [place] [address]- 1501 June, [facility] [place] [facility] [address] [id number] [place] [address]- 7899 May, [facility] [place] [facility] [address] [id number] [place] [address]- 9898 May, [facility] [place] [facility] [address] [id number] [place] [address]- 0312 May, [facility] [place] [facility] [address] [id number] [place] [address]- 9094 May, [facility] [place] [facility] [address] [id number] [place] [address]- 7870 May, [facility] [place] [facility] [address] [id number] [place] [address]- 3389 May, [facility] [place] [facility] [address] [id number] [place] [address]- 5110 May, [facility] [place] [facility] [address] [id number] [place] [address]- 2230 May, [facility] [place] [facility] [address] [id number] [place] [address]- 4999 May, [facility] [place] [facility] [address] [id number] [place] [address]- 6537 May, [facility] [place] [facility] [address] [id number] [place] [address]- 5511 Apr, [facility] [place] [facility] [address] [id number] [place] [address]- 4323 Apr, [facility] [place] [facility] [address] [id number] [place] [address]- 7959 Apr, [facility] [place] [facility] [address] [id number] [place] [address]- 1359 Apr, [facility] [place] [facility] [address] [id number] [place] [address]- 8630 Apr, [facility] [place] [facility] [address] [id number] [place] [address]- 7148 Apr, [facility] [address] [id number] [place] [address]- 6116 Apr, [facility] [place] [facility] [address] [id number] [place] [address]- 7436 Apr, [facility] [place] [facility] [address] [id number] [place] [address]- 6456 Apr, [facility] [place] [facility] [address] [id number] [place] [address]- 7508 Apr, [facility] [place] [facility] [address] [id number] [place] [address]- 1824 Mar, [facility] [place] [facility] [address] [id number] [place] [address]- 3316 Mar, [facility] [address] [id number] [place] [address]- 3102 Mar, [facility] [place] [facility] [address] [id number] [place] [address]- 9704 Mar, [facility] [place] [facility] [address] [id number] [place] [address]- 4960 Mar, [facility] [place] [facility] [address] [facility] [id number] [place] [address]- 1841 Mar, [facility] [place] [facility] [address] [id number] [place] [address]- 6223 Jan, [facility] [place] [facility] [address] [id number] [place] [address]- 7544 Jan, [facility] [place] [facility] [address] [id number] [place] [address]- 3251 Jan, [facility] [place] [facility] [address] [id number] [place]186 Jan, [facility] [place] [facility] [address] [id number] [place] [address]- 2497 Jan, [facility] [place] [facility] [address] [id number] [place] [address]- 4200 Jan, [facility] [place] [facility] [address] [id number] [place] [address]- 5120 Jan, [facility] [place] [facility] [address] [id number] [place] [address]- 8527 Jan, [facility] [place] [facility] [address] [id number] [place] [address]- 3349 Jan, [facility] [place] [facility] [address] [id number] [place] [address]- 2864 Dec, [facility] [place] [facility] [address] [id number] [place] [address]- 7257 Dec, [facility] [place] [facility] [address] [id number] [place] [address]- 0065 Dec, [facility] [place] [facility] [address] [id number] [place] [address]- 9204 Dec, [facility] [place] [facility] [address] [id number] [place] [address]- 2186 Dec, [facility] [place] [facility] [address] [id number] [place] [address]- 7364 Dec, [facility] [place] [facility] [address] [id number] [place] [address]- 5262 Dec, [facility] [place] [facility] [address] [id number] [place] [address]- 1476 Dec, [facility] [place] [facility] [address] [id number] [place] [address]- 1572 Dec, [facility] [place] [facility] [address] [id number] [place] [address]- 3608 Dec, [facility] [place] [facility] [address] [id number] [place] [address]- 9556 Dec, [facility] [place] [facility] [address] [id number] [place] [address]- 3916 Nov, [facility] [place] [facility] [address] [id number] [place] [address]- 3562 Nov, [facility] [place] [facility] [address] [id number] [place] [address]- 6015 Nov, [facility] [place] [facility] [address] [id number] [place] [address]- 8615 Nov, [facility] [place] [facility] [address] [id number] [place] [address]- 3301 Nov, [facility] [place] [facility] [address] [id number] [place] [address]- 1166 Oct, [facility] [place] [facility] [address] [id number] [place] [address]- 9979 Oct, [facility] [place] [facility] [address] [id number] [place] [address]- 2333 Sep, [facility] [place] [facility] [address] [id number] [place] [address]- 1145 Aug, [facility] [place] [facility] [address] [id number] [place] [address]- 4141 Aug, [facility] [place] [facility] [address] [id number] [place] [address]- 1922 Aug, [facility] [place] [facility] [address] [id number] [place] [address]- 1234 Aug, [facility] [place] [facility] [address] [id number] [place] [address]- 4885 Jul, [facility] [place] [facility] [address] [id number] [place] [address]- 5740 Jul, [facility] [place] [facility] [address] [id number] [place] [address]- 3497 June, [facility] [place] [facility] [address] [id number] [place] [address]- 2544 June, [facility] [place] [facility] [address] [id number] [place] [address]- 4340 June, [facility] [address] [id number] [place] [address]- 9757 08 May, 2012 [facility] [address] [id number] [place] [address]- 7385 May, [facility] [address] [id number] [place] [address]- 5897 May, [facility] [address] [id number] [place] [address]- 4912 18 Apr, 2012 [facility] [address] [id number] [place] [address]- 2637 18 Apr, 2012 [facility] [address] [facility] [id number] [place] [address]- 4861 15 Apr, 2012 [facility] [address] [facility] [id number] [place] [address]- 3732 14 Apr, 2012 [facility] [address] [facility] [id number] [place] [address]- 2377 12 Apr, 2012 [facility] [address] [id number] [place] [address]- 4412 27 Apr, 2012 [facility] [address] [id number] [place] [address]- 9625 Apr, [facility] [address] [facility] [id number] [place] [address]- 5365 Apr, [facility] [address] [facility] [id number] [place] [address]- 254 Apr, [facility] [place] [facility] [address] [id number] [place] [address] 20 Apr, 2012 [facility] [address] [facility] [id number] [place] [address] 19 Apr, 2012 [facility] [address] [facility] [id number] [place] [address] 07 Apr, 2012 [facility] [address] [id number] [place] [address] 07 Apr, 2012 [facility] [place] [facility] [address] [id number] [place] [address] Mar, [facility] [place] [facility] [address] [id number] [place] [address] Mar, [facility] [place] [facility] [address] [id number] [place] [address] Mar, [facility] [place] [facility] [address] [id number] [place] [address] Mar, [facility] [place] [facility] [address] [id number] [place] [address] Mar, [facility] [place] [facility] [address] [id number] [place] [address] Jan, [facility] [place] [facility] [address] [id number] [place] [address] 28 Jan, 2012 [facility] [place] [facility] [address] [id number] [place] [address] Jan, [facility] [place] [facility] [address] [id number] [place] [address]- [address] 22 Jan, 2012 [facility] [place] [facility] [address] [id number] [place] [address] 14 Jan, 2012 [facility] [place] [facility] [address] [id number] [place] [address]180 13 Jan, 2012 [facility] [place] [facility] [address] [id number] [place] [address] 13 Jan, 2012 [facility] [place] [facility] [address] [id number] [place] [address]77 11 Jan, 2012 [facility] [place] [facility] [address] [id number] [place] [address]- 7670 06 Jan, 2012 [facility] [place] [facility] [address] [id number] [place] [address] 06 Jan, 2012 [facility] [address] [id number] [place] [address]- [address] 04 Jan, 2012 [facility] [place] [facility] [address] [id number] [place] [address] Jan, [facility] [address] [id number] [place] [address]- 9039 04 Jan, 2012 [facility] [place] [facility] [address] [id number] [place] [address]- 85[address] Jan, [facility] [address] [id number] [place] [address]- 2045 26 Jan, 2012 [facility] [place] [facility] [address] [id number] [place] [address]- 3693 26 Jan, 2012 [facility] [place] [facility] [address] [id number] [place] [address]- 0379 19 Jan, 2012 [facility] [address] [id number] [place] [address] 1503 19 Jan, 2012 [facility] [place] [facility] [address] [facility] [id number] [place] [address] 117[address] 15 Jan, 2012 [facility] [address] [facility] [id number] [place] [address] 77[address] 15 Jan, 2012 [facility] [place] [facility] [address] [id number] [place] [address] 14 Jan, 2012 [facility] [place] [facility] [address] [id number] [place] [address] 14 Jan, 2012 [facility] [place] [facility] [address] [id number] [place] [address] 3280 14 Jan, 2012 [facility] [place] [facility] [address] [facility] [id number] [place] [address] 14 Jan, 2012 [facility] [place] [facility] [address] [id number] [place] [address] 2899 Dec, [facility] [place] [facility] [address] [id number] [place] [address] 90[address] Dec, [facility] [place] [facility] [address] [id number] [place] [address] 2016 Nov, [facility] [place] [facility] [address] [id number] [place] [address] 16 Dec, 2011 [facility] [place] [facility] [address] [id number] [place] [address] 0176 13 Nov, 2011 [facility] [place] [facility] [address] [id number] [place] [address] 7[address] 13 Nov, 2011 [facility] [place] [facility] [address] [id number] [place] [address] 98[address] Oct, [facility] [place] [facility] [address] [id number] [place] [address] Oct, [facility] [place] [facility] [address] [id number] [place] [address] Sep, [facility] [place] [facility] [address] [id number] [place] [address] 67[address] Sep, [facility] [place] [facility] [address] [id number] [place] [address] 38[address] Aug, [facility] [place] [facility] [address] [id number] [place] [address] 78[address] Aug, [facility] [place] [facility] [address] [id number] [address] Aug, [facility] [place] [facility] [address] [id number] [place] [address] 9180 Aug, [facility] [place] [facility] [address] [id number] [place] [address] 1646 June, [facility] [place] [facility] [address] [id number] [place] [address] June, [facility] [place] [facility] [address] [id number] [place] [address] May, [facility] [address] [id number] [place] [address] 3936 Apr, [facility] [place] [facility] [address] [id number] [place] [address]- [address]756 Apr, [facility] [address] [id number] [place] [address]- 9236 Apr, [facility] [address] [id number] [place] [address]- 3006 Apr, [facility] [address] [id number] [place] [address]- [address] Apr, [facility] [place] [facility] [address] [id number] [place] [address]- 7626 Apr, [facility] [address] [facility] [id number] [place] [address] Mar, [facility] [address] [id number] [place] [address]- 395[address] Mar, [facility] [address] [id number] [place] [address]- [address] Mar, [facility] [address] [facility] [id number] [place] [address]- 6771 Jan, [facility] [address] [id number] [place] [address]- 2305 Jan, [facility] [place] [facility] [address] [id number] [place] [address]- 4776 Jan, [facility] [place] [facility] [address] [id number] [place] [address] Jan, [facility] [place] [facility] [address] [id number] [place] [address]- 3143 Jan, [facility] [place] [facility] [address] [facility] [id number] [place] [address]- 7891 Jan, [facility] [place] [facility] [address] [id number] [place] [address] 2401 Jan, [facility] [place] [facility] [address] [id number] [place] [address] Dec, [facility] [place] [facility] [address] [id number] [place] [address]- 0241 Dec, [facility] [place] [facility] [address] [id number] [place] [address]- 2247 Nov, [facility] [place] [facility] [address] [id number] [place] [address]- 2244 Nov, [facility] [place] [facility] [address] [id number] [place] [address]- 7988 Nov, [facility] [place] [facility] [address] [id number] [place] [address]- [address] Nov, [facility] [facility] [address] [id number] [place] [address] Oct, [facility] [place] [facility] [address] [id number] [place] [address] Sep, [facility] [place] [facility] [address] [id number] [place] [address] Mar, [facility] [place] [facility] [address] [id number] [place] [address] Jan, [facility] [place] [facility] [address] [id number] [place] [address] Dec, [facility] [place] [facility] [address] [id number] [place] [address] Dec, [facility] [place] [facility] [address] [id number] [place] [address] Dec, [facility] [place] [facility] [address] [id number] [place] [address] Dec, [facility] [place] [facility] [address] [id number] [place] [address] 26 Nov, 2009 [facility] [address] [id number] [place] [address] 15 Nov, 2009 [facility] [place] [facility] [address] [id number] [address] 14 Nov, 2009 [facility] [place] [facility] [address] [facility] [id number] [place] [address] 14 Nov, 2009 [facility] [place] [facility] [address] [id number] [address] 13 Oct, 2009 [facility] [place] [facility] [address] [id number] [place] [address] 17 Jul, 2009 [facility] [place] [facility] [address] [id number] [place] [address] 17 Jun, 2009 [facility] [place] [facility] [address] [id number] [place] [address] June, [facility] [place] [facility] [address] [id number] [place] [address] 17 Apr, 2009 [facility] [place] [facility] [address] [id number] [place] [address] Mar, [facility] [place] [facility] [address] [id number] [address] 24 Jan, 2009 [facility] [facility] [address] [id number] [place] [address] Jan, [facility] [facility] [address] [id number] [place] [address] 27 Dec, 2008 [facility] [facility] [address] [id number] [place] [address] 25 Dec, 2008 [facility] [address] [facility] [id number] [place] [address] 13 Dec, 2008 [facility] [facility] [address] [facility] [id number] [place] [address] 13 Dec, 2008 [facility] [facility] [address] [facility] [id number] [place] [id number] Nov, [facility] [address] [facility] [id number] [place] [address] Jul, [facility] [address] [facility] [id number] [place] [address] June, IMMUNIZATIONS No Known Immunizations SOCIAL HISTORY Never Assessed REASON FOR VISIT Medication refill request PLAN OF CARE VITAL SIGNS MEDICATIONS Medication Instructions Dosage Frequency Start Date End Date Duration Status Metoprolol Tartrate 25 MG Orally Twice a day 1 tablet 12h 30 days Active RESULTS No Results PROCEDURES No Known procedures INSTRUCTIONS MEDICATIONS ADMINISTERED No Known Medications MEDICAL (GENERAL) HISTORY Type Description Date Medical History hypertension Medical History sleep apnea-did not tolerate CPAP Medical History oxygen dependent at [facility] Medical History colonic polyps [...]
--- OUTSIDE RECORDS SUMMARY | 2018-02-26 19:22 | XMS REPORT ---
Author Author GRAHAM CHRIS [facility] Address [address] [place] [address] Care Team Providers Care Director Of Operations Support Name Role Phone GRAHAMELLIOTT HANNAHANY Unavailable PROBLEMS Type Condition ICD9-CM Code [id number] Code Onset Dates Condition Status SNOMED Code Problem Pulmonary asbestosis J61 Active 10588320 Problem Left ventricular diastolic dysfunction I51.9 Active 659713505 Problem Chronic gout, unspecified cause, unspecified site [id number].[id number] Active 89629578 Problem Renal cyst, left N28.1 Active 74535357 Problem History of weight loss surgery Z98.84 Active 834940566 Problem Nocturnal hypoxia G47.34 Active 560398644 Problem Obstructive sleep apnea syndrome G47.33 Active 87817586 Problem History of diverticulitis Z87.19 Active [id number] Problem Allergic rhinitis, unspecified allergic rhinitis type J30.9 Active 79323523 Problem Erectile dysfunction due to diseases classified elsewhere N52.1 Active 135702654 Problem Acute right-sided low back pain with right-sided sciatica M54.41 Active 067031754 Problem Psoriasis L40.9 Active 7983403 Problem Essential hypertension I10 Active 82290187 Problem Nephrolithiasis N20.0 Active 69684922 Problem Chronic prescription opiate use Z79.899 Active 370168158 Problem 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 Active 99320589 Problem Benign prostatic hyperplasia, presence of lower urinary tract symptoms unspecified, unspecified morphology N40.0 Active 262403237 Problem Moderate episode of recurrent major depressive disorder F33.1 Active 684132554 Problem Age-related osteoporosis without current pathological fracture M81.0 Active 49897037 Problem Low back pain M54.5 Active 334094871 Problem Anxiety F41.9 Active 29713669 Problem Urge incontinence N39.41 Active 922652726 Problem Hyperlipidemia, unspecified E78.5 Active 28864445 Problem Esophageal stricture K22.2 Active 47968898 Problem Cervicalgia M54.2 Active 0993250911220 Problem Primary insomnia F51.01 Active 752017442 ALLERGIES No Information ENCOUNTERS Encounter Location Date Diagnosis [facility] [id number] [place] [address] 41109- 5037 Jul, Anxiety F41.9 [facility] [id number] [place] [address] 83002- 6236 June, Anxiety F41.9 [facility] [address] 20479- 1848 June, [facility] [address] 36275- 3930 June, Low back pain M54.5 ; Chronic prescription opiate use Z79.899 ; Candidal intertrigo B37.2 ; Urge incontinence N39.41 ; Essential hypertension I10 ; Moderate episode of recurrent major depressive disorder F33.1 ; Age-related osteoporosis without current pathological fracture M81.0 and BMI 45.0-49.9, adult Z68.42 [facility] [id number] [place] [address] 41106- 1028 June, [facility] [address] 23181- 8827 May, Anxiety F41.9 [facility] [id number] [place] [address] 62573- 5964 May, [facility] [id number] [place] [address] 93795- 8641 May, [facility] [id number] [place] [address] 46711- 3785 Apr, Anxiety F41.9 [facility] [id number] [place] [address] 11762- 6700 Apr, [facility] [id number] [place] [address] 73495- 0927 Apr, Low back pain M54.5 [facility] [address] [place] [address]- 2601 Apr, [facility] [id number] [place] [address] 00589- 5222 Apr, [facility] [id number] [place] [address] 82220- 7699 Apr, Anxiety F41.9 [facility] [id number] [place] [address] 90021- 1365 Apr, Right groin pain R10.31 [facility] [id number] [place] [address] 14920- 2165 Mar, [facility] [id number] [place] [address] 33828- 0250 Mar, [facility] [id number] [place] [address] 79695- 0596 Mar, Anxiety F41.9 [facility] [id number] [place] [address] 61687- 0044 Mar, Low back pain M54.5 [facility] [id number] [place] [address] 02422- 3457 Mar, Right groin pain R10.31 ; Low back pain M54.5 and BMI 45.0- 49.9, adult Z68.42 [facility] [id number] [place] [address] 48598- 0967 Mar, [facility] [id number] [place] [address] 80564- 8520 Mar, [facility] [id number] [place] [address] 12064- 9459 Mar, [facility] [id number] [place] [address] 16029 -0363 Mar, [facility] [id number] [place] [address] 76512 -9502 Mar, Cough R05 ; Pneumonia of right lower lobe due to infectious organism J18.1 and Abnormal chest x-ray R93.8 [facility] [id number] [place] [address] 79016- 5257 Mar, [facility] [id number] [place] [address] 91162- 8984 Mar, [facility] [id number] [place] [address] 16629- 6494 Jan, Anxiety F41.9 [facility] [id number] [place] [address] 77779- 0514 Jan, [facility] [id number] [place] [address] 53429- 9056 Jan, Moderate episode of recurrent major depressive disorder F33.1 [facility] [id number] [place] [address] 36752- 3866 Jan, Subacromial bursitis of right shoulder joint M75.51 ; Shortness of breath on exertion R06.02 and BMI 45.0-49.9, adult Z68.42 [facility] [id number] [place] [address] 81883- 6318 Dec, Anxiety F41.9 [facility] [id number] [place] [address] 74260- 4757 Dec, [facility] [id number] [place] [address] 49128- 7771 Dec, Low back pain M54.5 [facility] [id number] [place] [address] 31167- 1912 Oct, Low back pain M54.5 [facility] [id number] [place] [address] 81036- 2426 Sep, [facility] [id number] [place] [address] 67736- 9919 Sep, Erectile dysfunction due to diseases classified elsewhere N52.1 [facility] [id number] [place] [address] 59343- 9176 Sep, Erectile dysfunction due to diseases classified elsewhere N52.1 [facility] [id number] [place] [address] 89136- 4565 Sep, [facility] [id number] [place] [address] 85669- 2897 Sep, Erectile dysfunction due to diseases classified elsewhere N52.1 [facility] [id number] [place] [address] 14980- 4918 Sep, Low back pain M54.5 and Anxiety F41.9 [facility] [id number] [place] [address] 91853 -3472 Aug, Acute allergic rhinitis J30.9 [facility] [id number] [place] [address] 88571- 0957 Aug, [facility] [address] 09143- 1944 Aug, Anxiety F41.9 [facility] [id number] [place] [address] 44489- 9287 Jul, Low back pain M54.5 ; Chronic prescription opiate use Z79.899 and Essential hypertension I10 [facility] [id number] [place] [address] 48324- 2513 Jul, Anxiety F41.9 and Low back pain M54.5 [facility] [id number] [place] [address] 19259- 0649 June, [facility] [id number] [place] [address] 72744- 9804 June, Anxiety F41.9 [facility] [id number] [place] [address] 55265- 0878 May, Low back pain M54.5 [facility] [id number] [place] [address] 06143- 3534 May, [facility] [id number] [place] [address] 87279- 3618 May, Anxiety F41.9 [facility] [id number] [place] [address] 71147- 9883 Apr, [facility] [id number] [place] [address] 44907- 1951 Apr, Low back pain M54.5 [facility] [id number] [place] [address] 21041- 8550 Apr, Moderate episode of recurrent major depressive disorder F33.1 [facility] [address] 93218- 1385 06 Apr, 2016 Anxiety F41.9 [facility] [id number] [place] [address] 90558- 7044 Apr, Low back pain M54.5 [facility] [id number] [place] [address] 92766- 1293 15 Apr, 2016 Elevated alkaline phosphatase level R74.8 [facility] [id number] [place] [address] 12892- 8631 10 Apr, 2016 Alkaline phosphatase elevation R74.8 [facility] [id number] [place] [address] 91121- 6148 06 Apr, 2016 Anxiety F41.9 [facility] [id number] [place] [address] 32400- 1684 03 Apr, 2016 Low back pain M54.5 [facility] [id number] [place] [address] 90622- 0674 03 Apr, 2017 History of weight loss surgery Z98.84 ; Encounter for hepatitis C screening test for low risk patient Z11.59 ; History of herpes genitalis Z86.19 ; Essential hypertension I10 ; Hyperlipidemia, unspecified E78.5 ; Exposure to STD Z20.2 and Benign prostatic hyperplasia, presence of lower urinary tract symptoms unspecified, unspecified morphology N40.0 [facility] [address] [address]- 4619 02 Apr, 2016 [place] [id number] [place] [address] 66422- 5770 Mar, [facility] [address] [address]- 1769 Mar, [facility] [id number] [place] [address] 96511- 1597 Mar, [facility] [id number] [place] [address] 49861- 7002 Mar, Acute right-sided low back pain with right-sided sciatica M54.41 [facility] [id number] [place] [address] 87311- 7504 Mar, Low back pain M54.5 [facility] [id number] [place] [address] 95409 -4688 Mar, Muscle strain of chest wall, initial encounter S29.011A ; Muscle strain of right thigh, initial encounter S76.911A and Acute non- recurrent maxillary sinusitis J01.00 [facility] [facility] [id number] [place] [address] 39337- 9089 Mar, Benign prostatic hyperplasia, presence of lower urinary tract symptoms unspecified, unspecified morphology N40.0 [facility] [address] [address]- 5377 Jan, Low back pain M54.5 [facility] [id number] [place] [address] 38967- 3799 13 Jan, 2016 Low back pain M54.5 ; Essential hypertension I10 ; Hyperlipidemia, unspecified E78.5 ; Anxiety F41.9 ; Moderate episode of recurrent major depressive disorder F33.1 ; Primary insomnia F51.01 ; Exposure to STD Z20.2 ; Encounter for hepatitis C screening test for low risk patient Z11.59 and History of herpes genitalis Z86.19 [facility] [address] [address]- 2531 Dec, [facility] [id number] [place] [address] 05308- 1383 Nov, [facility] [id number] [place] [address] 04635- 4276 Nov, Anxiety F41.9 ; Cervicalgia M54.2 ; Moderate episode of recurrent major depressive disorder F33.1 and Encounter for immunization Z23 [facility] [id number] [place] [address] 24597- 8201 Oct, [facility] [id number] [place] [address] 83235- 4096 22 Nov, 2015 [facility] [id number] [place] [address] 21382- 2515 16 Nov, 2015 [facility] [id number] [place] [address] 80024- 4365 Oct, [facility] [id number] [place] [address] 17455- 3384 Sep, [facility] [id number] [place] [address] 60308- 4549 Aug, Low back pain M54.5 ; Anxiety F41.9 ; Primary insomnia F51.01 and Chronic prescription opiate use Z79.899 [facility] [id number] [place] [address] 83203- 7364 Jul, [facility] [id number] [place] [address] 97192- 8710 Jul, [facility] [id number] [place] [address] 11091- 7666 Jul, [facility] [id number] [place] [address] 08640- 7533 Jul, [facility] [id number] [place] [address] 42847- 4445 Jul, [facility] [address] [address]- 0291 June, [facility] [id number] [place] [address] 01174- 0181 June, [facility] [address] [address]- 2584 June, [facility] [id number] [place] [address] 60930- 1356 June, [facility] [id number] [place] [address] 32021- 4572 May, Preoperative cardiovascular examination Z01.810 [facility] [id number] [place] [address] 04097- 6792 May, [facility] [id number] [place] [address] 14339- 5399 Apr, [facility] [id number] [place] [address] 92657- 4401 Apr, Osteoarthritis of right knee M17.9 [facility] [id number] [place] [address] 13392- 5062 Apr, [facility] [id number] [place] [address] 01922- 7557 Apr, [facility] [address] [address]- 8412 Apr, [facility] [address] [address]- 5902 Apr, [facility] [id number] [place] [address] 47978- 9391 08 May, 2015 History of excessive cerumen Z78.9 ; Obstructive sleep apnea syndrome G47.33 ; History of diverticulitis Z87.19 and Nephrolithiasis N20.0 [facility] [address] [address]- 9507 Apr, [facility] [address] [address] -5308 Apr, Abdominal pain R10.9 [facility] [id number] [place] [address] 21955- 3944 Apr, [facility] [id number] [place] [address] 06423- 9092 Apr, Osteoarthritis of right knee M17.9 [facility] [id number] [place] [address] 57695- 3871 Mar, [facility] [id number] [place] [address] 83337- 8331 Mar, [facility] [id number] [place] [address] 87322- 0469 Mar, [facility] [id number] [place] [address] 77485- 5304 Mar, [facility] [address] [place] [address] 73358 -0986 Mar, Pyelonephritis N12 ; Left-sided thoracic back pain M54.6 ; Hematuria, unspecified R31.9 and Kidney stone N20.0 [facility] [address] [place] [address] 44164- 8588 Mar, History of weight loss surgery Z98.84 [facility] [id number] [place] [address] 71922- 5316 Mar, History of weight loss surgery Z98.84 and Hyperlipidemia, unspecified E78.5 [facility] [id number] [place] [address] 22117- 2590 Mar, Low back pain M54.5 ; Chronic prescription opiate use Z79.899 ; Hyperlipidemia, unspecified E78.5 ; Spasm of back muscles M62.830 and History of weight loss surgery Z98.84 [facility] [id number] [place] [address] 15706- 6590 Jan, [facility] [address] [address]- 1891 Jan, [facility] [id number] [place] [address] 600268- 3740 Jan, [facility] [id number] [place] [address] 421936- 7708 Dec, [facility] [id number] [place] [address] 76912- 8436 Dec, [facility] [id number] [place] [address] 96499- 4234 Dec, [facility] [id number] [place] [address] 653112- 1850 Nov, [facility] [id number] [place] [address] 45177- 9586 Nov, Obstructive sleep apnea syndrome G47.33 and Pharyngoesophageal dysphagia R13.14 [facility] [address] [address]- 8334 Nov, [facility] [id number] [place] [address] 30993- 5883 Nov, [facility] [address] [address]- 2209 Nov, [facility] [id number] [place] [address] [id number] 30 Oct, 2014 Dental examination V72.2 [facility] [address] [address]- 4016 Oct, [facility] [id number] [place] [address] 422045- 8825 Oct, [facility] [address]- 6816 Oct, [facility] [id number] [place] [address] 13991- 9318 Oct, [facility] [id number] [place] [address] 21702- 7439 Oct, BPH (benign prostatic hyperplasia) 600.00 and Urinary frequency 788.41 [facility] [id number] [place] [address] 29107- 9426 Oct, [facility] [address] 59002- 4831 Oct, [facility] [address] 12884- 8052 Oct, [facility] [address] 93832- 6515 Sep, Cerumen impaction 380.4 ; Cerumen debris on tympanic membrane 380.4 ; Psoriasis 696.1 and MICKY (secretory otitis media) 381.4 [facility] [id number] [place] [address] [id number] Sep, Dental examination V72.2 [facility] [id number] [place] [address] 52895- 9916 Sep, Fatigue 780.79 ; Irritable bowel syndrome 564.1 ; Overweight 278.02 ; Poor sleep V69.4 ; Shaking spells 781.0 and Broken tooth 873.63 [facility] [id number] [place] [address] 19790- 1931 Sep, [facility] [id number] [place] [address] 01389- 7574 Sep, [facility] [id number] [place] [address] 91980- 7876 Aug, [facility] [id number] [place] [address] 72236- 0048 Jul, [facility] [id number] [place] [address] 29590- 2885 Jul, [facility] [address] [id number] [place] [address]- 2833 Jul, [facility] [address] [facility] [id number] [place] [address]- 4119 Jul, [facility] [address] [facility] [id number] [place] [address]- 1928 June, Arthritis of knee, right 716.96 [facility] [address] [facility] [id number] [place] [address]- 1713 June, [facility] [address] [facility] [id number] [place] [address]- 1763 June, Elevated blood pressure reading without diagnosis of hypertension 796.2 [facility] [address] [facility] [id number] [place] [address]- 4150 June, [facility] [address] [place] [address]- 3991 June, [facility] [id number] [place] [address]- 1331 June, [facility] [id number] [place] [address]- 1918 June, [facility] [id number] [place] [address]- 4448 May, [facility] [id number] [place] [address]- 9210 May, [facility] [address] [facility] [id number] [place] [address]- 9787 Apr, [facility] [address] [id number] [place] [address]- 3920 Apr, [facility] [address] [facility] [id number] [place] [address]- 8483 Apr, [facility] [id number] [place] [address]- 5509 Apr, [facility] [place] [facility] [address] [id number] [place] [address]- 3295 20 Apr, 2014 [facility] [place] [facility] [address] [id number] [place] [address]- 1904 20 Apr, 2014 [facility] [place] [facility] [address] [id number] [place] [address]- 0836 13 Apr, 2014 [facility] [place] [facility] [address] [id number] [place] [address]- 7474 13 Apr, 2014 [facility] [place] [facility] [address] [id number] [place] [address]- 4549 Apr, 2014 [facility] [place] [facility] [address] [id number] [place] [address]- 7336 Apr, 2014 [facility] [place] [facility] [address] [id number] [place] [address]- 5751 Apr, 2014 [facility] [place] [facility] [address] [id number] [place] [address]- 8896 Apr, 2014 [facility] [place] [facility] [address] [id number] [place] [address] 24 Apr, 2014 [facility] [place] [facility] [address] [facility] [id number] [place] [address] 24 Apr, 2014 [facility] [place] [facility] [address] [facility] [id number] [place] [address] 23 Apr, 2014 [facility] [place] [facility] [address] [id number] [place] [address] 23 Apr, 2014 [facility] [place] [facility] [address] [id number] [place] [address] Apr, 2014 [facility] [place] [facility] [address] [id number] [place] [address] 20 Apr, 2014 [facility] [place] [facility] [address] [facility] [id number] [place] [address] 18 Apr, 2014 [facility] [place] [facility] [address] [id number] [place] [address] 18 Apr, 2014 [facility] [place] [facility] [address] [facility] [id number] [place] [address] Apr, 2014 [facility] [place] [facility] [address] [facility] [id number] [place] [address] Apr, 2014 [facility] [place] [facility] [address] [facility] [id number] [place] [address] Apr, 2014 [facility] [place] [facility] [address] [facility] [id number] [place] [address] 0693 Apr, 2014 [facility] [place] [facility] [address] [facility] [id number] [place] [address]- 6030 Apr, 2014 [facility] [place] [facility] [address] [id number] [place] [address] Apr, 2014 [facility] [place] [facility] [id number] [place] [address] Apr, 2014 [facility] [place] [facility] [address] [facility] [id number] [place] [address]- 7051 Apr, 2014 [facility] [place] [facility] [address] [id number] [place] [address] 377[address] Apr, 2014 [facility] [place] [facility] [address] [id number] [place] [address]- 7189 Apr, 2014 [facility] [place] [facility] [address] [facility] [id number] [place] [address] Apr, 2014 [facility] [place] [facility] [address] [facility] [id number] [place] [address]- 1249 Apr, 2014 [facility] [place] [facility] [address] [facility] [id number] [place] [address]- 6227 Apr, 2014 [facility] [place] [facility] [address] [facility] [id number] [place] [address]- 3925 Mar, [facility] [place] [facility] [id number] [place] [address] 2546 Mar, [facility] [place] [facility] [address] [id number] [place] [address]- 1901 Mar, [facility] [place] [facility] [address] [id number] [place] [address]- 3423 Mar, [facility] [place] [facility] [address] [id number] [place] [address]- 5414 Mar, [facility] [place] [facility] [address] [id number] [place] [address]- 6940 Mar, [facility] [place] [facility] [address] [id number] [place] [address]- 5319 Mar, [facility] [place] [facility] [address] [id number] [place] [address]- 3211 Mar, [facility] [place] [facility] [address] [id number] [place] [address]- 9174 Mar, [facility] [place] [facility] [address] [id number] [place] [address]- 2463 Mar, [facility] [place] [facility] [address] [id number] [place] [address]- 0342 Jan, [facility] [place] [facility] [address] [id number] [place] [address]- 1980 Jan, [facility] [place] [facility] [address] [id number] [place] [address]- 4091 Jan, [facility] [place] [facility] [address] [id number] [place] [address]- 0919 Jan, [facility] [place] [facility] [address] [id number] [place] [address] Jan, [facility] [place] [facility] [address] [id number] [place] [address]- 9100 Jan, [facility] [place] [facility] [address] [id number] [place] [address]- 1580 Jan, [facility] [place] [facility] [address] [id number] [place] [address]- 1551 05 Jan, 2014 [facility] [place] [facility] [address] [id number] [place] [address]- 3445 Jan, [facility] [place] [facility] [address] [id number] [place] [address]- 7281 Jan, [facility] [place] [facility] [address] [id number] [place] [address]- 6722 Jan, [facility] [place] [facility] [address] [id number] [place] [address]- 8647 Jan, [facility] [place] [facility] [address] [id number] [place] [address]- 3892 Dec, [facility] [place] [facility] [address] [id number] [place] [address]- 7413 Dec, [facility] [place] [facility] [address] [id number] [place] [address]- 5972 Dec, [facility] [place] [facility] [address] [id number] [place] [address]- 5463 Dec, [facility] [place] [facility] [address] [id number] [place] [address]- 6766 Dec, [facility] [place] [facility] [address] [id number] [place] [address]- 5860 Dec, [facility] [place] [facility] [address] [id number] [place] [address]- 3614 Dec, [facility] [place] [facility] [address] [id number] [place] [address]- 2593 Dec, [facility] [place] [facility] [address] [id number] [place] [address]- 3127 Dec, [facility] [place] [facility] [address] [id number] [place] [address]- 0628 Dec, [facility] [place] [facility] [address] [id number] [place] [address]- 0497 Nov, [facility] [place] [facility] [address] [id number] [place] [address]- 7756 31 Nov, 2013 [facility] [place] [facility] [address] [id number] [place] [address]- 1425 Nov, [facility] [place] [facility] [address] [id number] [place] [address]- 7492 Nov, [facility] [place] [facility] [address] [id number] [place] [address]- 1426 Nov, [facility] [place] [facility] [address] [id number] [place] [address]- 5006 Nov, [facility] [place] [facility] [address] [id number] [place] [address]- 4307 Nov, [facility] [place] [facility] [address] [id number] [place] [address]- 2334 Nov, [facility] [place] [facility] [address] [id number] [place] [address]- 9113 Nov, [facility] [place] [facility] [address] [id number] [place] [address]- 7037 24 Nov, 2013 [facility] [place] [facility] [address] [id number] [place] [address]- 8457 Nov, [facility] [place] [facility] [address] [id number] [place] [address]- 2993 17 Nov, 2013 [facility] [place] [facility] [address] [id number] [place] [address]- 5909 14 Nov, 2013 [facility] [place] [facility] [address] [id number] [place] [address]- 8892 14 Nov, 2013 [facility] [place] [facility] [address] [id number] [place] [address]- 6160 10 Nov, 2013 [facility] [place] [facility] [address] [id number] [place] [address]- 0925 10 Nov, 2013 [facility] [place] [facility] [address] [id number] [place] [address]- 8100 08 Nov, 2013 [facility] [place] [facility] [address] [id number] [place] [address]- 1474 Nov, [facility] [place] [facility] [address] [id number] [place] [address]- 7068 Nov, [facility] [place] [facility] [address] [id number] [place] [address]- 9134 Nov, [facility] [place] [facility] [address] [id number] [place] [address]- 0183 Oct, [facility] [place] [facility] [address] [id number] [place] [address]- 1313 Oct, [facility] [place] [facility] [address] [id number] [place] [address]- 8590 Oct, [facility] [place] [facility] [address] [id number] [place] [address]- 4090 Oct, [facility] [place] [facility] [address] [id number] [place] [address]- 8415 Oct, [facility] [place] [facility] [address] [id number] [place] [address]- 1111 Oct, [facility] [place] [facility] [address] [id number] [place] [address]- 4429 Oct, [facility] [place] [facility] [address] [id number] [place] [address]- 8942 Oct, [facility] [place] [facility] [address] [id number] [place] [address]- 0267 Oct, [facility] [place] [facility] [address] [id number] [place] [address]- 1442 Oct, [facility] [place] [facility] [address] [id number] [place] [address]- 7896 Sep, [facility] [place] [facility] [address] [id number] [place] [address]- 7449 Sep, [facility] [place] [facility] [address] [id number] [place] [address]- 6926 Sep, [facility] [place] [facility] [address] [id number] [place] [address]- 3997 Sep, [facility] [place] [facility] [address] [id number] [place] [address]- 8096 Sep, [facility] [place] [facility] [address] [id number] [place] [address]- 2864 Sep, [facility] [place] [facility] [address] [id number] [place] [address]- 0485 Sep, [facility] [place] [facility] [address] [id number] [place] [address]- 9564 Sep, [facility] [place] [facility] [address] [id number] [place] [address]- 2434 Sep, [facility] [place] [facility] [address] [id number] [place] [address]- 8411 Sep, [facility] [place] [facility] [address] [id number] [place] [address]- 3322 Sep, [facility] [place] [facility] [address] [id number] [place] [address]- 2938 Sep, [facility] [place] [facility] [address] [id number] [place] [address]- 6965 Sep, [facility] [place] [facility] [address] [id number] [place] [address]- 7240 Sep, [facility] [place] [facility] [address] [id number] [place] [address]- 6360 Sep, [facility] [place] [facility] [address] [id number] [place] [address]- 7972 Sep, [facility] [place] [facility] [address] [id number] [place] [address]- 0192 Sep, [facility] [place] [facility] [address] [id number] [place] [address]- 4128 Sep, [facility] [place] [facility] [address] [id number] [place] [address]- 4062 Sep, [facility] [place] [facility] [address] [id number] [place] [address]- 6497 Sep, [facility] [place] [facility] [address] [id number] [place] [address]- 2885 Sep, [facility] [place] [facility] [address] [id number] [place] [address]- 4007 Sep, [facility] [place] [facility] [address] [id number] [place] [address]- 7976 Sep, [facility] [place] [facility] [address] [id number] [place] [address]- 8932 Sep, [facility] [place] [facility] [address] [id number] [place] [address]- 5352 Sep, [facility] [place] [facility] [address] [id number] [place] [address]- 5220 Aug, [facility] [place] [facility] [address] [id number] [place] [address]- 5857 Aug, [facility] [place] [facility] [address] [id number] [place] [address]- 7445 Aug, [facility] [place] [facility] [address] [id number] [place] [address]- 8483 Aug, [facility] [place] [facility] [address] [id number] [place] [address]- 1609 Aug, [facility] [place] [facility] [address] [id number] [place] [address]- 2557 Aug, [facility] [place] [facility] [address] [id number] [place] [address]- 9901 Aug, [facility] [place] [facility] [address] [id number] [place] [address]- 5327 Aug, [facility] [place] [facility] [address] [id number] [place] [address]- 8064 Aug, [facility] [place] [facility] [address] [id number] [place] [address]- 6375 Aug, [facility] [place] [facility] [address] [id number] [place] [address]- 2854 Aug, [facility] [place] [facility] [address] [id number] [place] [address]- 0532 Aug, [facility] [place] [facility] [address] [id number] [place] [address]- 2826 Aug, [facility] [place] [facility] [address] [id number] [place] [address]- 6420 Jul, [facility] [place] [facility] [address] [id number] [place] [address]- 8727 Jul, [facility] [place] [facility] [address] [id number] [place] [address]- 8794 Jul, [facility] [place] [facility] [address] [id number] [place] [address]- 1089 Jul, [facility] [place] [facility] [address] [id number] [place] [address]- 7478 Jul, [facility] [place] [facility] [address] [id number] [place] [address]- 7587 Jul, [facility] [place] [facility] [address] [id number] [place] [address]- 9060 Jul, [facility] [place] [facility] [address] [id number] [place] [address]- 2849 June, [facility] [place] [facility] [address] [id number] [place] [address]- 3693 June, [facility] [place] [facility] [address] [id number] [place] [address]- 7622 June, [facility] [place] [facility] [address] [id number] [place] [address]- 0859 June, [facility] [place] [facility] [address] [id number] [place] [address]- 7231 May, [facility] [place] [facility] [address] [id number] [place] [address]- 8113 May, [facility] [place] [facility] [address] [id number] [place] [address]- 1227 May, [facility] [place] [facility] [address] [id number] [place] [address]- 5198 May, [facility] [place] [facility] [address] [id number] [place] [address]- 2922 May, [facility] [place] [facility] [address] [id number] [place] [address]- 3187 May, [facility] [place] [facility] [address] [id number] [place] [address]- 4726 May, [facility] [place] [facility] [address] [id number] [place] [address]- 4621 May, [facility] [place] [facility] [address] [id number] [place] [address]- 3299 May, [facility] [place] [facility] [address] [id number] [place] [address]- 5259 May, [facility] [place] [facility] [address] [id number] [place] [address]- 5430 Apr, [facility] [place] [facility] [address] [id number] [place] [address]- 7484 Apr, [facility] [place] [facility] [address] [id number] [place] [address]- 9566 Apr, [facility] [place] [facility] [address] [id number] [place] [address]- 8576 Apr, [facility] [place] [facility] [address] [id number] [place] [address]- 0084 Apr, [facility] [place] [facility] [address] [id number] [place] [address]- 1420 Apr, [facility] [address] [id number] [place] [address]- 6566 Apr, [facility] [place] [facility] [address] [id number] [place] [address]- 3126 Apr, [facility] [place] [facility] [address] [id number] [place] [address]- 7626 Apr, [facility] [place] [facility] [address] [id number] [place] [address]- 6093 Apr, [facility] [place] [facility] [address] [id number] [place] [address]- 0393 Mar, [facility] [place] [facility] [address] [id number] [place] [address]- 6166 Mar, [facility] [address] [id number] [place] [address]- 1564 Mar, [facility] [place] [facility] [address] [id number] [place] [address]- 4412 Mar, [facility] [place] [facility] [address] [id number] [place] [address]- 4269 Mar, [facility] [place] [facility] [address] [facility] [id number] [place] [address]- 3172 Mar, [facility] [place] [facility] [address] [id number] [place] [address]- 4430 Jan, [facility] [place] [facility] [address] [id number] [place] [address]- 8789 Jan, [facility] [place] [facility] [address] [id number] [place] [address]- 2967 Jan, [facility] [place] [facility] [address] [id number] [place] 0930 Jan, [facility] [place] [facility] [address] [id number] [place] [address]- 5987 Jan, [facility] [place] [facility] [address] [id number] [place] [address]- 8961 Jan, [facility] [place] [facility] [address] [id number] [place] [address]- 9999 Jan, [facility] [place] [facility] [address] [id number] [place] [address]- 8657 Jan, [facility] [place] [facility] [address] [id number] [place] [address]- 0831 Jan, [facility] [place] [facility] [address] [id number] [place] [address]- 0056 Dec, [facility] [place] [facility] [address] [id number] [place] [address]- 6941 Dec, [facility] [place] [facility] [address] [id number] [place] [address]- 6732 Dec, [facility] [place] [facility] [address] [id number] [place] [address]- 7053 Dec, [facility] [place] [facility] [address] [id number] [place] [address]- 2482 Dec, [facility] [place] [facility] [address] [id number] [place] [address]- 8358 Dec, [facility] [place] [facility] [address] [id number] [place] [address]- 2898 Dec, [facility] [place] [facility] [address] [id number] [place] [address]- 9795 Dec, [facility] [place] [facility] [address] [id number] [place] [address]- 8186 Dec, [facility] [place] [facility] [address] [id number] [place] [address]- 7332 Dec, [facility] [place] [facility] [address] [id number] [place] [address]- 7372 Dec, [facility] [place] [facility] [address] [id number] [place] [address]- 0506 Nov, [facility] [place] [facility] [address] [id number] [place] [address]- 4755 Nov, [facility] [place] [facility] [address] [id number] [place] [address]- 8449 Nov, [facility] [place] [facility] [address] [id number] [place] [address]- 9910 Nov, [facility] [place] [facility] [address] [id number] [place] [address]- 0967 Nov, [facility] [place] [facility] [address] [id number] [place] [address]- 6440 Oct, [facility] [place] [facility] [address] [id number] [place] [address]- 6484 Oct, [facility] [place] [facility] [address] [id number] [place] [address]- 1080 Sep, [facility] [place] [facility] [address] [id number] [place] [address]- 8778 Aug, [facility] [place] [facility] [address] [id number] [place] [address]- 1204 Aug, [facility] [place] [facility] [address] [id number] [place] [address]- 0528 Aug, [facility] [place] [facility] [address] [id number] [place] [address]- 1165 Aug, [facility] [place] [facility] [address] [id number] [place] [address]- 3244 Jul, [facility] [place] [facility] [address] [id number] [place] [address]- 4988 Jul, [facility] [place] [facility] [address] [id number] [place] [address]- 2887 June, [facility] [place] [facility] [address] [id number] [place] [address]- 2541 June, [facility] [place] [facility] [address] [id number] [place] [address]- 5397 June, [facility] [address] [id number] [place] [address]- 8679 08 May, 2012 [facility] [address] [id number] [place] [address]- 3443 May, [facility] [address] [id number] [place] [address]- 7705 May, [facility] [address] [id number] [place] [address]- 0087 18 Apr, 2012 [facility] [address] [id number] [place] [address]- 1583 18 Apr, 2012 [facility] [address] [facility] [id number] [place] [address]- 2751 15 Apr, 2012 [facility] [address] [facility] [id number] [place] [address]- 3579 14 Apr, 2012 [facility] [address] [facility] [id number] [place] [address]- 1807 12 Apr, 2012 [facility] [address] [id number] [place] [address]- 6290 27 Apr, 2012 [facility] [address] [id number] [place] [address]- 0623 Apr, [facility] [address] [facility] [id number] [place] [address]- 5779 Apr, [facility] [address] [facility] [id number] [place] [address]- 2543 Apr, [facility] [place] [facility] [address] [id number] [place] [address]- 7658 20 Apr, 2012 [facility] [address] [facility] [id number] [place] [address]- 3195 19 Apr, 2012 [facility] [address] [facility] [id number] [place] [address] 07 Apr, 2012 [facility] [address] [id number] [place] [address] 07 Apr, 2012 [facility] [place] [facility] [address] [id number] [place] [address] Mar, [facility] [place] [facility] [address] [id number] [place] [address] Mar, [facility] [place] [facility] [address] [id number] [place] [address] Mar, [facility] [place] [facility] [address] [id number] [place] [address] Mar, [facility] [place] [facility] [address] [id number] [place] [address] Mar, [facility] [place] [facility] [address] [id number] [place] [address] 85[address] Jan, [facility] [place] [facility] [address] [id number] [place] [address] 28 Jan, 2012 [facility] [place] [facility] [address] [id number] [place] [address] Jan, [facility] [place] [facility] [address] [id number] [place] [address] 2628 22 Jan, 2012 [facility] [place] [facility] [address] [id number] [place] [address]- 2460 14 Jan, 2012 [facility] [place] [facility] [address] [id number] [place] [address]- 7023 13 Jan, 2012 [facility] [place] [facility] [address] [id number] [place] [address]- 160[address] 13 Jan, 2012 [facility] [place] [facility] [address] [id number] [place] [address]- 4[address] 11 Jan, 2012 [facility] [place] [facility] [address] [id number] [place] [address]- 8948 06 Jan, 2012 [facility] [place] [facility] [address] [id number] [place] [address] 06 Jan, 2012 [facility] [address] [id number] [place] [address]- [address]237 04 Jan, 2012 [facility] [place] [facility] [address] [id number] [place] [address]- 40[address] Jan, [facility] [address] [id number] [place] [address]- 6690 04 Jan, 2012 [facility] [place] [facility] [address] [id number] [place] [address]- [address] Jan, [facility] [address] [id number] [place] [address]- [address]105 26 Jan, 2012 [facility] [place] [facility] [address] [id number] [place] [address]- 0072 26 Jan, 2012 [facility] [place] [facility] [address] [id number] [place] [address]- 8695 19 Jan, 2012 [facility] [address] [id number] [place] [address]- 2758 19 Jan, 2012 [facility] [place] [facility] [address] [facility] [id number] [place] [address]- [address]327 15 Jan, 2012 [facility] [address] [facility] [id number] [place] [address]- 9731 15 Jan, 2012 [facility] [place] [facility] [address] [id number] [place] [address]- 2743 14 Jan, 2012 [facility] [place] [facility] [address] [id number] [place] [address]- 0117 14 Jan, 2012 [facility] [place] [facility] [address] [id number] [place] [address]- 1538 14 Jan, 2012 [facility] [place] [facility] [address] [facility] [id number] [place] [address]- 7891 14 Jan, 2012 [facility] [place] [facility] [address] [id number] [place] [address] 2558 Dec, [facility] [place] [facility] [address] [id number] [place] [address]645 Dec, [facility] [place] [facility] [address] [id number] [place] [address] 8256 Nov, [facility] [place] [facility] [address] [id number] [place] [address]- [address] 16 Dec, 2011 [facility] [place] [facility] [address] [id number] [place] [address]- 1430 13 Nov, 2011 [facility] [place] [facility] [address] [id number] [place] [address]- 9317 13 Nov, 2011 [facility] [place] [facility] [address] [id number] [place] [address] 1705 Oct, [facility] [place] [facility] [address] [id number] [place] [address]160 Oct, [facility] [place] [facility] [address] [id number] [place] [address]- 1665 Sep, [facility] [place] [facility] [address] [id number] [place] [address]- [address] Sep, [facility] [place] [facility] [address] [id number] [place] [address]- 4448 Aug, [facility] [place] [facility] [address] [id number] [place] [address]- 7953 Aug, [facility] [place] [facility] [address] [id number] [place] [address] Aug, [facility] [place] [facility] [address] [id number] [place] [address] 3110 Aug, [facility] [place] [facility] [address] [id number] [place] [address]- 3546 June, [facility] [place] [facility] [address] [id number] [place] [address] 1666 June, [facility] [place] [facility] [address] [id number] [place] [address]- [address] May, [facility] [address] [id number] [place] [address]- 2016 Apr, [facility] [place] [facility] [address] [id number] [place] [address]26 Apr, [facility] [address] [id number] [place] [address] 8016 Apr, [facility] [address] [id number] [place] [address]- 9866 Apr, [facility] [address] [id number] [place] [address]- 2766 Apr, [facility] [place] [facility] [address] [id number] [place] [address]- 5636 Apr, [facility] [address] [facility] [id number] [place] [address]- 7812 Mar, [facility] [address] [id number] [place] [address]- 2695 Mar, [facility] [address] [id number] [place] [address]- 0084 Mar, [facility] [address] [facility] [id number] [place] [address]- 7072 Jan, [facility] [address] [id number] [place] [address]- 6507 Jan, [facility] [place] [facility] [address] [id number] [place] [address]- 0162 Jan, [facility] [place] [facility] [address] [id number] [place] [address]- 1513 Jan, [facility] [place] [facility] [address] [id number] [place] [address]- 8837 Jan, [facility] [place] [facility] [address] [facility] [id number] [place] [address]- 5782 Jan, [facility] [place] [facility] [address] [id number] [place] [address]- 2276 Jan, [facility] [place] [facility] [address] [id number] [place] [address] Dec, [facility] [place] [facility] [address] [id number] [place] [address]- 6532 Dec, [facility] [place] [facility] [address] [id number] [place] [address]- 4409 Nov, [facility] [place] [facility] [address] [id number] [place] [address] Nov, [facility] [place] [facility] [address] [id number] [place] [address] Nov, [facility] [place] [facility] [address] [id number] [place] [address] Nov, [facility] [place] [facility] [address] [id number] [place] [address] Oct, [facility] [place] [facility] [address] [id number] [place] [address] Sep, [facility] [place] [facility] [address] [id number] [place] [address] Mar, [facility] [place] [facility] [address] [id number] [place] [address] Jan, [facility] [place] [facility] [address] [id number] [place] [address] Dec, [facility] [place] [facility] [address] [id number] [place] [address] Dec, [facility] [place] [facility] [address] [id number] [place] [address] Dec, [facility] [place] [facility] [address] [id number] [place] [address] Dec, [facility] [place] [facility] [address] [id number] [place] [address] 26 Nov, 2009 [facility] [address] [id number] [place] [address] 15 Nov, 2009 [facility] [place] [facility] [address] [id number] [place] [address] 14 Nov, 2009 [facility] [place] [facility] [address] [facility] [id number] [place] [address] 14 Nov, 2009 [facility] [place] [facility] [address] [id number] [place] [address] 13 Oct, 2009 [facility] [place] [facility] [address] [id number] [place] [address] 17 Jul, 2009 [facility] [place] [facility] [address] [id number] [place] [address] 17 Jun, 2009 [facility] [place] [facility] [address] [id number] [place] [address] June, [facility] [place] [facility] [address] [id number] [place] [address] 17 Apr, 2009 [facility] [place] [facility] [address] [id number] [place] [address] Mar, [facility] [place] [facility] [address] [id number] [place] [address] 24 Jan, 2009 [facility] [place] [facility] [address] [id number] [place] [address] Jan, [facility] [place] [facility] [address] [id number] [place] [address] 27 Dec, 2008 [facility] [place] [facility] [address] [id number] [place] [address] 25 Dec, 2008 [facility] [place] [facility] [address] [facility] [id number] [place] [address] 13 Dec, 2008 [facility] [place] [facility] [address] [facility] [id number] [place] [address] 13 Dec, 2008 [facility] [place] [facility] [address] [facility] [id number] [place] [address] Nov, [facility] [address] [facility] [id number] [place] [address] Jul, [facility] [address] [facility] [id number] [place] [address] June, IMMUNIZATIONS No Known Immunizations SOCIAL HISTORY [...] CPAP Medical History oxygen dependent at [facility] Medical History colonic polyps Medical [...]
--- OUTSIDE RECORDS SUMMARY | 2018-02-26 19:24 | XMS REPORT ---
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 Name Role Phone GRAHAMLIBBY HANNAY Unavailable PROBLEMS Type Condition ICD9-CM Code DER88-UD Code Onset Dates Condition Status SNOMED Code Problem Pulmonary asbestosis J61 Active 55939633 Problem Left ventricular diastolic dysfunction I51.9 Active 045190999 Problem Chronic gout, unspecified cause, unspecified site M1A.9XX0 Active 55330956 Problem Renal cyst, left N28.1 Active 62709834 Problem History of weight loss surgery Z98.84 Active 860481932 Problem Nocturnal hypoxia G47.34 Active 069339816 Problem Obstructive sleep apnea syndrome G47.33 Active 46238358 Problem History of diverticulitis Z87.19 Active 974052295885878 Problem Allergic rhinitis, unspecified allergic rhinitis type J30.9 Active 86051663 Problem Erectile dysfunction due to diseases classified elsewhere N52.1 Active 075623339 Problem Acute right-sided low back pain with right-sided sciatica M54.41 Active 808918786 Problem Psoriasis L40.9 Active 3985523 Problem Essential hypertension I10 Active 00915741 Problem Nephrolithiasis N20.0 Active 25684349 Problem Chronic prescription opiate use Z79.899 Active 545970147 Problem 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 Active 80837227 Problem Benign prostatic hyperplasia, presence of lower urinary tract symptoms unspecified, unspecified morphology N40.0 Active 666007338 Problem Moderate episode of recurrent major depressive disorder F33.1 Active 312798828 Problem Age-related osteoporosis without current pathological fracture M81.0 Active 61018016 Problem Low back pain M54.5 Active 603856327 Problem Anxiety F41.9 Active 83809373 Problem Urge incontinence N39.41 Active 789046387 Problem Hyperlipidemia, unspecified E78.5 Active 87882942 Problem Esophageal stricture K22.2 Active 84682698 Problem Cervicalgia M54.2 Active 1661096152097 Problem Primary insomnia F51.01 Active 948732183 ALLERGIES No Information ENCOUNTERS Encounter Location Date Diagnosis [facility] [id number] [place] [address] 18414- 1038 Jul, Anxiety F41.9 [facility] [id number] [place] [address] 68204- 6155 June, Anxiety F41.9 [facility] [address] 90139- 8243 June, [facility] [address] 53308- 5481 June, Low back pain M54.5 ; Chronic prescription opiate use Z79.899 ; Candidal intertrigo B37.2 ; Urge incontinence N39.41 ; Essential hypertension I10 ; Moderate episode of recurrent major depressive disorder F33.1 ; Age-related osteoporosis without current pathological fracture M81.0 and BMI 45.0-49.9, adult Z68.42 [facility] [id number] [place] [address] 39871- 2376 June, [facility] [address] 31226- 7678 May, Anxiety F41.9 [facility] [id number] [place] [address] 90519- 3032 May, [facility] [id number] [place] [address] 37137- 2375 May, [facility] [id number] [place] [address] 79222- 1935 Apr, Anxiety F41.9 [facility] [id number] [place] [address] 10854- 7397 Apr, [facility] [id number] [place] [address] 37565- 0988 Apr, Low back pain M54.5 [facility] [address] [place] [address]- 9849 Apr, [facility] [id number] [place] [address] 43630- 5274 Apr, [facility] [id number] [place] [address] 94028- 9209 Apr, Anxiety F41.9 [facility] [id number] [place] [address] 06237- 7098 Apr, Right groin pain R10.31 [facility] [id number] [place] [address] 94168- 0703 Mar, [facility] [id number] [place] [address] 98026- 8418 Mar, [facility] [id number] [place] [address] 89820- 1625 Mar, Anxiety F41.9 [facility] [id number] [place] [address] 00238- 3140 Mar, Low back pain M54.5 [facility] [id number] [place] [address] 07492- 2248 Mar, Right groin pain R10.31 ; Low back pain M54.5 and BMI 45.0- 49.9, adult Z68.42 [facility] [id number] [place] [address] 22479- 3816 Mar, [facility] [id number] [place] [address] 51106- 6581 Mar, [facility] [id number] [place] [address] 98260- 4052 Mar, [facility] [id number] [place] [address] 95191 -7862 Mar, [facility] [id number] [place] [address] 93359 -7923 Mar, Cough R05 ; Pneumonia of right lower lobe due to infectious organism J18.1 and Abnormal chest x-ray R93.8 [facility] [id number] [place] [address] 93768- 0937 Mar, [facility] [id number] [place] [address] 15766- 6403 Mar, [facility] [id number] [place] [address] 75958- 7115 Jan, Anxiety F41.9 [facility] [id number] [place] [address] 34263- 2040 Jan, [facility] [id number] [place] [address] 38745- 9462 Jan, Moderate episode of recurrent major depressive disorder F33.1 [facility] [id number] [place] [address] 05607- 9334 Jan, Subacromial bursitis of right shoulder joint M75.51 ; Shortness of breath on exertion R06.02 and BMI 45.0-49.9, adult Z68.42 [facility] [id number] [place] [address] 52051- 1250 Dec, Anxiety F41.9 [facility] [id number] [place] [address] 67542- 2096 Dec, [facility] [id number] [place] [address] 93247- 8358 Dec, Low back pain M54.5 [facility] [id number] [place] [address] 43451- 4848 Oct, Low back pain M54.5 [facility] [id number] [place] [address] 49541- 9057 Sep, [facility] [id number] [place] [address] 37781- 9686 Sep, Erectile dysfunction due to diseases classified elsewhere N52.1 [facility] [id number] [place] [address] 62106- 6199 Sep, Erectile dysfunction due to diseases classified elsewhere N52.1 [facility] [id number] [place] [address] 91873- 5201 Sep, [facility] [id number] [place] [address] 43936- 9269 Sep, Erectile dysfunction due to diseases classified elsewhere N52.1 [facility] [id number] [place] [address] 07015- 7561 Sep, Low back pain M54.5 and Anxiety F41.9 [facility] [id number] [place] [address] 03039 -8700 Aug, Acute allergic rhinitis J30.9 [facility] [id number] [place] [address] 51327- 5880 Aug, [facility] [address] 43708- 7957 Aug, Anxiety F41.9 [facility] [id number] [place] [address] 53943- 1514 Jul, Low back pain M54.5 ; Chronic prescription opiate use Z79.899 and Essential hypertension I10 [facility] [id number] [place] [address] 82862- 7493 Jul, Anxiety F41.9 and Low back pain M54.5 [facility] [id number] [place] [address] 34659- 8554 June, [facility] [id number] [place] [address] 21049- 9688 June, Anxiety F41.9 [facility] [id number] [place] [address] 07817- 6583 May, Low back pain M54.5 [facility] [id number] [place] [address] 68307- 8430 May, [facility] [id number] [place] [address] 99555- 2008 May, Anxiety F41.9 [facility] [id number] [place] [address] 81605- 6554 Apr, [facility] [id number] [place] [address] 74338- 3361 Apr, Low back pain M54.5 [facility] [id number] [place] [address] 45690- 8538 Apr, Moderate episode of recurrent major depressive disorder F33.1 [facility] [address] 49899- 9061 06 Apr, 2016 Anxiety F41.9 [facility] [id number] [place] [address] 86471- 9330 Apr, Low back pain M54.5 [facility] [id number] [place] [address] 61098- 5735 15 Apr, 2016 Elevated alkaline phosphatase level R74.8 [facility] [id number] [place] [address] 46138- 3580 10 Apr, 2016 Alkaline phosphatase elevation R74.8 [facility] [id number] [place] [address] 78848- 9889 06 Apr, 2016 Anxiety F41.9 [facility] [id number] [place] [address] 58881- 6075 03 Apr, 2016 Low back pain M54.5 [facility] [id number] [place] [address] 39504- 3020 03 Apr, 2017 History of weight loss surgery Z98.84 ; Encounter for hepatitis C screening test for low risk patient Z11.59 ; History of herpes genitalis Z86.19 ; Essential hypertension I10 ; Hyperlipidemia, unspecified E78.5 ; Exposure to STD Z20.2 and Benign prostatic hyperplasia, presence of lower urinary tract symptoms unspecified, unspecified morphology N40.0 [facility] [id number] [place] [address]- 7681 02 Apr, 2016 [facility] [id number] [place] [address] 65072- 6981 Mar, [facility] [address] [place] [address]- 2167 Mar, [facility] [id number] [place] [address] 74116- 9379 Mar, [facility] [id number] [place] [address] 84049- 1788 Mar, Acute right-sided low back pain with right-sided sciatica M54.41 [facility] [id number] [place] [address] 17918- 5676 Mar, Low back pain M54.5 [facility] [id number] [place] [address] 68510 -4250 Mar, Muscle strain of chest wall, initial encounter S29.011A ; Muscle strain of right thigh, initial encounter S76.911A and Acute non- recurrent maxillary sinusitis J01.00 [facility] [id number] [place] [address] 38575- 4075 Mar, Benign prostatic hyperplasia, presence of lower urinary tract symptoms unspecified, unspecified morphology N40.0 [facility] [id number] [place] [address]- 3013 Jan, Low back pain M54.5 [facility] [id number] [place] [address] 43364- 4887 13 Jan, 2016 Low back pain M54.5 ; Essential hypertension I10 ; Hyperlipidemia, unspecified E78.5 ; Anxiety F41.9 ; Moderate episode of recurrent major depressive disorder F33.1 ; Primary insomnia F51.01 ; Exposure to STD Z20.2 ; Encounter for hepatitis C screening test for low risk patient Z11.59 and History of herpes genitalis Z86.19 [facility] [id number] [address]- 2127 Dec, [facility] [id number] [place] [address] 38268- 2067 Nov, [facility] [id number] [place] [address] 65894- 4392 Nov, Anxiety F41.9 ; Cervicalgia M54.2 ; Moderate episode of recurrent major depressive disorder F33.1 and Encounter for immunization Z23 [facility] [id number] [place] [address] 78899- 7334 Oct, [facility] [id number] [place] [address] 69403- 1308 22 Nov, 2015 [facility] [id number] [place] [address] 10787- 6789 16 Nov, 2015 [facility] [id number] [place] [address] 79800- 4983 Oct, [facility] [id number] [place] [address] 91862- 7353 Sep, [facility] [id number] [place] [address] 64861- 5855 Aug, Low back pain M54.5 ; Anxiety F41.9 ; Primary insomnia F51.01 and Chronic prescription opiate use Z79.899 [facility] [id number] [place] [address] 01157- 9710 Jul, [facility] [id number] [place] [address] 07199- 4200 Jul, [facility] [id number] [place] [address] 42616- 8777 Jul, [facility] [id number] [place] [address] 62130- 8430 Jul, [facility] [id number] [place] [address] 93603- 1716 Jul, [facility] [id number] [place] [address]- 1183 June, [facility] [id number] [place] [address] 62427- 4349 June, [facility] [id number] [place] [address]- 8291 June, [facility] [id number] [place] [address] 82334- 8761 June, [facility] [id number] [place] [address] 62171- 4309 May, Preoperative cardiovascular examination Z01.810 [facility] [id number] [place] [address] 81486- 9026 May, [facility] [id number] [place] [address] 30144- 1616 Apr, [facility] [id number] [place] [address] 35265- 8999 Apr, Osteoarthritis of right knee M17.9 [facility] [id number] [place] [address] 20346- 4537 Apr, [facility] [id number] [place] [address] 92637- 5283 Apr, [facility] [address], [place] [address]- 5449 Apr, [facility] [id number] [address]- 6271 Apr, [facility] [id number] [place] [address] 18191- 8909 08 May, 2015 History of excessive cerumen Z78.9 ; Obstructive sleep apnea syndrome G47.33 ; History of diverticulitis Z87.19 and Nephrolithiasis N20.0 [facility] [address], [place] [address]- 3610 Apr, [facility] [id number] [place] [address] -6021 Apr, Abdominal pain R10.9 [facility] [id number] [place] [address] 02317- 0633 Apr, [facility] [id number] [place] [address] 07903- 7702 Apr, Osteoarthritis of right knee M17.9 [facility] [id number] [place] [address] 34896- 6734 Mar, [facility] [id number] [place] [address] 02893- 7503 Mar, [facility] [id number] [place] [address] 57151- 5478 Mar, [facility] [id number] [place] [address] 53895- 4150 Mar, [facility] [id number] [place] [address] 53071 -9106 Mar, Pyelonephritis N12 ; Left-sided thoracic back pain M54.6 ; Hematuria, unspecified R31.9 and Kidney stone N20.0 [facility] [id number] [place] [address] 11982- 4158 Mar, History of weight loss surgery Z98.84 [facility] [id number] [place] [address] 55756- 7829 Mar, History of weight loss surgery Z98.84 and Hyperlipidemia, unspecified E78.5 [facility] [id number] [place] [address] 25998- 1929 Mar, Low back pain M54.5 ; Chronic prescription opiate use Z79.899 ; Hyperlipidemia, unspecified E78.5 ; Spasm of back muscles M62.830 and History of weight loss surgery Z98.84 [facility] [id number] [place] [address] 09662- 6897 Jan, [facility] [address], [place] [address]- 7665 Jan, [facility] [id number] [place] [address] 651867- 8833 Jan, [facility] [id number] [place] [address] 694226- 6488 Dec, [facility] [id number] [place] [address] 53497- 8213 Dec, [facility] [id number] [place] [address] 92161- 3679 Dec, [facility] [id number] [place] [address] 344022- 8308 Nov, [facility] [id number] [place] [address] 51637- 0620 Nov, Obstructive sleep apnea syndrome G47.33 and Pharyngoesophageal dysphagia R13.14 [facility] [address], [place] [address]- 4287 Nov, [facility] [id number] [place] [address] 77254- 2297 Nov, [facility] [id number] [place] [address]- 5330 Nov, [facility] [id number] [place] [address] [id number] 30 Oct, 2014 Dental examination V72.2 [facility] [id number], [place] [address]- 9851 Oct, [facility] [id number] [place] [address] 220858- 5353 Oct, [facility] [id number] 3681 Oct, [facility] [id number] [place] [address] 13170- 5242 Oct, [facility] [id number] [place] [address] 50933- 6425 Oct, BPH (benign prostatic hyperplasia) 600.00 and Urinary frequency 788.41 [facility] [id number] [place] [address] 22612- 5414 Oct, [facility] [address] 60484- 0058 Oct, [facility] [address] 37090- 0279 Oct, [facility] [address] 04597- 4362 Sep, Cerumen impaction 380.4 ; Cerumen debris on tympanic membrane 380.4 ; Psoriasis 696.1 and MICKY (secretory otitis media) 381.4 [facility] [id number] [place] [address] [id number] Sep, Dental examination V72.2 [facility] [id number] [place] [address] 87893- 9157 Sep, Fatigue 780.79 ; Irritable bowel syndrome 564.1 ; Overweight 278.02 ; Poor sleep V69.4 ; Shaking spells 781.0 and Broken tooth 873.63 [facility] [id number] [place] [address] 92300- 9640 Sep, [facility] [id number] [place] [address] 03720- 9877 Sep, [facility] [id number] [place] [address] 64698- 5598 Aug, [facility] [id number] [place] [address] 96683- 9831 Jul, [facility] [id number] [place] [address] 58637- 5240 Jul, [facility] [address] [id number] [place] [address]- 3394 Jul, [facility] [address] [facility] [id number] [place] [address]- 7639 Jul, [facility] [address] [facility] [id number] [place] [address]- 9868 June, Arthritis of knee, right 716.96 [facility] [address] [facility] [id number] [place] [address]- 4524 June, [facility] [address] [facility] [id number] [place] [address]- 3023 June, Elevated blood pressure reading without diagnosis of hypertension 796.2 [facility] [address] [facility] [id number] [place] [address]- 9486 June, [facility] [id number] [place] [address]- 2535 June, [facility] [id number] [place] [address]- 0255 June, [facility] [id number] [place] [address]- 4260 June, [facility] [id number] [place] [address]- 6093 May, [facility] [id number] [place] [address] May, [facility] [address] [facility] [id number] [place] [address] Apr, [facility] [address] [id number] [place] [address] Apr, [facility] [address] [facility] [id number] [place] [address] Apr, [facility] [address] [id number] [place] [address] Apr, [facility] [place] [facility] [address] [id number] [place] [address] 20 Apr, 2014 [facility] [place] [facility] [address] [id number] [place] [address] 20 Apr, 2014 [facility] [place] [facility] [address] [id number] [place] [address] 13 Apr, 2014 [facility] [place] [facility] [address] [id number] [place] [address] 13 Apr, 2014 [facility] [place] [facility] [address] [id number] [place] [address]- [address] Apr, 2014 [facility] [place] [facility] [address] [id number] [place] [address] Apr, 2014 [facility] [place] [facility] [address] [id number] [place] [address] Apr, 2014 [facility] [place] [facility] [address] [id number] [place] [address] Apr, 2014 [facility] [place] [facility] [address] [id number] [place] [address]- [address] 24 Apr, 2014 [facility] [place] [facility] [address] [facility] [id number] [place] [address]- [address] 24 Apr, 2014 [facility] [place] [facility] [address] [facility] [id number] [place] [address]- [address] 23 Apr, 2014 [facility] [place] [facility] [address] [id number] [place] [address]- 1449 23 Apr, 2014 [facility] [place] [facility] [address] [id number] [place] [address]- [address]164 Apr, 2014 [facility] [place] [facility] [address] [id number] [place] [address]- [address] 20 Apr, 2014 [facility] [place] [facility] [address] [facility] [id number] [place] [address]- [address] 18 Apr, 2014 [facility] [place] [facility] [address] [id number] [place] [address]- [address] 18 Apr, 2014 [facility] [place] [facility] [address] [facility] [id number] [place] [address]- 47[address] Apr, 2014 [facility] [place] [facility] [address] [facility] [id number] [place] [address] Apr, 2014 [facility] [place] [facility] [address] [facility] [id number] [place] [address] Apr, 2014 [facility] [place] [facility] [address] [facility] [id number] [place] [address]- [address] Apr, 2014 [facility] [place] [facility] [address] [facility] [id number] [place] [address]- [address] Apr, 2014 [facility] [place] [facility] [address] [id number] [place] [address] Apr, 2014 [facility] [place] [facility] [id number] [place] [address] Apr, 2014 [facility] [place] [facility] [address] [facility] [id number] [place] [address] Apr, 2014 [facility] [place] [facility] [address] [id number] [place] [address] Apr, 2014 [facility] [place] [facility] [address] [id number] [place] [address] 4614 Apr, 2014 [facility] [place] [facility] [address] [facility] [id number], [place] [address] Apr, 2014 [facility] [place] [facility] [address] [facility] [id number] [place] [address]- 0681 Apr, 2014 [facility] [place] [facility] [address] [facility] [id number] [place] [address]- 0838 Apr, 2014 [facility] [place] [facility] [address] [facility] [id number] [place] [address]- 9360 Mar, [facility] [place] [facility] [id number] [address] Mar, [facility] [place] [facility] [address] [id number] [place] [address]- 3713 Mar, [facility] [place] [facility] [address] [id number] [place] [address]- 8787 Mar, [facility] [place] [facility] [address] [id number] [place] [address]- 2191 Mar, [facility] [place] [facility] [address] [id number] [place] [address]- 1692 Mar, [facility] [place] [facility] [address] [id number] [place] [address]- 5195 Mar, [facility] [place] [facility] [address] [id number] [place] [address]- 0640 Mar, [facility] [place] [facility] [address] [id number] [place] [address]- 9695 Mar, [facility] [place] [facility] [address] [id number] [place] [address]- 4937 Mar, [facility] [place] [facility] [address] [id number] [place] [address]- 6095 Jan, [facility] [place] [facility] [address] [id number] [place] [address]- 1344 Jan, [facility] [place] [facility] [address] [id number] [place] [address]- 6856 Jan, [facility] [place] [facility] [address] [id number] [place] [address]- 3934 Jan, [facility] [place] [facility] [address] [id number] [place] 1610 Jan, [facility] [place] [facility] [address] [id number] [place] [address]- 0318 Jan, [facility] [place] [facility] [address] [id number] [place] [address]- 5198 Jan, [facility] [place] [facility] [address] [id number] [place] [address]- 6905 05 Jan, 2014 [facility] [place] [facility] [address] [id number] [place] [address]- 2860 Jan, [facility] [place] [facility] [address] [id number] [place] [address]- 1362 Jan, [facility] [place] [facility] [address] [id number] [place] [address]- 8939 Jan, [facility] [place] [facility] [address] [id number] [place] [address]- 8190 Jan, [facility] [place] [facility] [address] [id number] [place] [address]- 3473 Dec, [facility] [place] [facility] [address] [id number] [place] [address]- 5696 Dec, [facility] [place] [facility] [address] [id number] [place] [address]- 5972 Dec, [facility] [place] [facility] [address] [id number] [place] [address]- 2962 Dec, [facility] [place] [facility] [address] [id number] [place] [address]- 2538 Dec, [facility] [place] [facility] [address] [id number] [place] [address]- 2987 Dec, [facility] [place] [facility] [address] [id number] [place] [address]- 5864 Dec, [facility] [place] [facility] [address] [id number] [place] [address]- 0166 Dec, [facility] [place] [facility] [address] [id number] [place] [address]- 4544 Dec, [facility] [place] [facility] [address] [id number] [place] [address]- 5046 Dec, [facility] [place] [facility] [address] [id number] [place] [address]- 0301 Nov, [facility] [place] [facility] [address] [id number] [place] [address]- 1679 31 Nov, 2013 [facility] [place] [facility] [address] [id number] [place] [address]- 6468 Nov, [facility] [place] [facility] [address] [id number] [place] [address]- 9421 Nov, [facility] [place] [facility] [address] [id number] [place] [address]- 7926 Nov, [facility] [place] [facility] [address] [id number] [place] [address]- 4828 Nov, [facility] [place] [facility] [address] [id number] [place] [address]- 2315 Nov, [facility] [place] [facility] [address] [id number] [place] [address]- 0398 Nov, [facility] [place] [facility] [address] [id number], [place] [address]- 0746 Nov, [facility] [place] [facility] [address] [id number] [place] [address]- 7375 24 Nov, 2013 [facility] [place] [facility] [address] [id number], [place] [address]- 6845 Nov, [facility] [place] [facility] [address] [id number], [place] [address]- 0159 17 Nov, 2013 [facility] [place] [facility] [address] [id number], [place] [address]- 8882 14 Nov, 2013 [facility] [place] [facility] [address] [id number] [place] [address]- 4778 14 Nov, 2013 [facility] [place] [facility] [address] [id number], [place] [address]- 6340 10 Nov, 2013 [facility] [place] [facility] [address] [id number], [place] [address]- 5727 10 Nov, 2013 [facility] [place] [facility] [address] [id number], [place] [address]- 3990 08 Nov, 2013 [facility] [place] [facility] [address] [id number] [place] [address]- 2622 Nov, [facility] [place] [facility] [address] [id number] [place] [address]- 8111 Nov, [facility] [place] [facility] [address] [id number] [place] [address]- 7416 Nov, [facility] [place] [facility] [address] [id number] [place] [address]- 6471 Oct, [facility] [place] [facility] [address] [id number] [place] [address]- 8584 Oct, [facility] [place] [facility] [address] [id number] [place] [address]- 7722 Oct, [facility] [place] [facility] [address] [id number] [place] [address]- 7065 Oct, [facility] [place] [facility] [address] [id number] [place] [address]- 9080 Oct, [facility] [place] [facility] [address] [id number] [place] [address]- 0619 Oct, [facility] [place] [facility] [address] [id number] [place] [address]- 2032 Oct, [facility] [place] [facility] [address] [id number] [place] [address]- 9514 Oct, [facility] [place] [facility] [address] [id number], [place] [address]- 9437 Oct, [facility] [place] [facility] [address] [id number] [place] [address]- 0914 Oct, [facility] [place] [facility] [address] [id number] [place] [address]- 5823 Sep, [facility] [place] [facility] [address] [id number] [place] [address]- 0328 Sep, [facility] [place] [facility] [address] [id number] [place] [address]- 0548 Sep, [facility] [place] [facility] [address] [id number] [place] [address]- 4754 Sep, [facility] [place] [facility] [address] [id number] [place] [address]- 4505 Sep, [facility] [place] [facility] [address] [id number] [place] [address]- 9117 Sep, [facility] [place] [facility] [address] [id number] [place] [address]- 3277 Sep, [facility] [place] [facility] [address] [id number] [place] [address]- 0020 Sep, [facility] [place] [facility] [address] [id number] [place] [address]- 2253 Sep, [facility] [place] [facility] [address] [id number] [place] [address]- 2391 Sep, [facility] [place] [facility] [address] [id number] [place] [address]- 2619 Sep, [facility] [place] [facility] [address] [id number] [place] [address]- 6348 Sep, [facility] [place] [facility] [address] [id number] [place] [address]- 6860 Sep, [facility] [place] [facility] [address] [id number] [place] [address]- 1113 Sep, [facility] [place] [facility] [address] [id number] [place] [address]- 4921 Sep, [facility] [place] [facility] [address] [id number] [place] [address]- 5130 Sep, [facility] [place] [facility] [address] [id number] [place] [address]- 6843 Sep, [facility] [place] [facility] [address] [id number] [place] [address]- 7663 Sep, [facility] [place] [facility] [address] [id number] [place] [address]- 9889 Sep, [facility] [place] [facility] [address] [id number] [place] [address]- 5658 Sep, [facility] [place] [facility] [address] [id number] [place] [address]- 4525 Sep, [facility] [place] [facility] [address] [id number] [place] [address]- 8045 Sep, [facility] [place] [facility] [address] [id number] [place] [address]- 5274 Sep, [facility] [place] [facility] [address] [id number] [place] [address]- 6971 Sep, [facility] [place] [facility] [address] [id number] [place] [address]- 4016 Sep, [facility] [place] [facility] [address] [id number] [place] [address]- 3855 Aug, [facility] [place] [facility] [address] [id number] [place] [address]- 9417 Aug, [facility] [place] [facility] [address] [id number] [place] [address]- 6721 Aug, [facility] [place] [facility] [address] [id number] [place] [address]- 4694 Aug, [facility] [place] [facility] [address] [id number] [place] [address]- 4072 Aug, [facility] [place] [facility] [address] [id number] [place] [address]- 2772 Aug, [facility] [place] [facility] [address] [id number] [place] [address]- 4832 Aug, [facility] [place] [facility] [address] [id number] [place] [address]- 8087 Aug, [facility] [place] [facility] [address] [id number] [place] [address]- 1341 Aug, [facility] [place] [facility] [address] [id number] [place] [address]- 6212 Aug, [facility] [place] [facility] [address] [id number] [place] [address]- 9751 Aug, [facility] [place] [facility] [address] [id number] [place] [address]- 1116 Aug, [facility] [place] [facility] [address] [id number] [place] [address]- 9175 Aug, [facility] [place] [facility] [address] [id number] [place] [address]- 1899 Jul, [facility] [place] [facility] [address] [id number] [place] [address]- 2052 Jul, [facility] [place] [facility] [address] [id number] [place] [address]- 2142 Jul, [facility] [place] [facility] [address] [id number] [place] [address]- 1271 Jul, [facility] [place] [facility] [address] [id number] [place] [address]- 7903 Jul, [facility] [place] [facility] [address] [id number] [place] [address]- 4806 Jul, [facility] [place] [facility] [address] [id number] [place] [address]- 1226 Jul, [facility] [place] [facility] [address] [id number] [place] [address]- 6873 June, [facility] [place] [facility] [address] [id number] [place] [address]- 8592 June, [facility] [place] [facility] [address] [id number] [place] [address]- 0141 June, [facility] [place] [facility] [address] [id number] [place] [address]- 2967 June, [facility] [place] [facility] [address] [id number] [place] [address]- 8259 May, [facility] [place] [facility] [address] [id number] [place] [address]- 9745 May, [facility] [place] [facility] [address] [id number] [place] [address]- 1985 May, [facility] [place] [facility] [address] [id number] [place] [address]- 6272 May, [facility] [place] [facility] [address] [id number] [place] [address]- 5166 May, [facility] [place] [facility] [address] [id number] [place] [address]- 6081 May, [facility] [place] [facility] [address] [id number] [place] [address]- 0358 May, [facility] [place] [facility] [address] [id number] [place] [address]- 0127 May, [facility] [place] [facility] [address] [id number] [place] [address]- 0576 May, [facility] [place] [facility] [address] [id number] [place] [address]- 5179 May, [facility] [place] [facility] [address] [id number] [place] [address]- 7565 Apr, [facility] [place] [facility] [address] [id number] [place] [address]- 6869 Apr, [facility] [place] [facility] [address] [id number] [place] [address]- 5515 Apr, [facility] [place] [facility] [address] [id number] [place] [address]- 1536 Apr, [facility] [place] [facility] [address] [id number] [place] [address]- 9579 Apr, [facility] [place] [facility] [address] [id number] [place] [address]- 9710 Apr, [facility] [address] [id number] [place] [address]- 0836 Apr, [facility] [place] [facility] [address] [id number] [place] [address]- 8586 Apr, [facility] [place] [facility] [address] [id number] [place] [address]- 3516 Apr, [facility] [place] [facility] [address] [id number] [place] [address]- 6637 Apr, [facility] [place] [facility] [address] [id number] [place] [address]- 9611 Mar, [facility] [place] [facility] [address] [id number] [place] [address]- 2167 Mar, [facility] [address] [id number] [place] [address]- 7802 Mar, [facility] [place] [facility] [address] [id number] [place] [address]- 3318 Mar, [facility] [place] [facility] [address] [id number] [place] [address]- 9562 Mar, [facility] [place] [facility] [address] [facility] [id number] [place] [address]- 8610 Mar, [facility] [place] [facility] [address] [id number] [place] [address]- 8389 Jan, [facility] [place] [facility] [address] [id number] [place] [address]- 7472 Jan, [facility] [place] [facility] [address] [id number] [place] [address]- 7908 Jan, [facility] [place] [facility] [address] [id number] [place]15 Jan, [facility] [place] [facility] [address] [id number] [place] [address]- 2808 Jan, [facility] [place] [facility] [address] [id number] [place] [address]- 2956 Jan, [facility] [place] [facility] [address] [id number] [place] [address]- 1436 Jan, [facility] [place] [facility] [address] [id number] [place] [address]- 1575 Jan, [facility] [place] [facility] [address] [id number] [place] [address]- 7308 Jan, [facility] [place] [facility] [address] [id number] [place] [address]- 9092 Dec, [facility] [place] [facility] [address] [id number] [place] [address]- 5962 Dec, [facility] [place] [facility] [address] [id number] [place] [address]- 6823 Dec, [facility] [place] [facility] [address] [id number] [place] [address]- 2087 Dec, [facility] [place] [facility] [address] [id number] [place] [address]- 0366 Dec, [facility] [place] [facility] [address] [id number] [place] [address]- 2437 Dec, [facility] [place] [facility] [address] [id number] [place] [address]- 7205 Dec, [facility] [place] [facility] [address] [id number] [place] [address]- 8870 Dec, [facility] [place] [facility] [address] [id number] [place] [address]- 9381 Dec, [facility] [place] [facility] [address] [id number] [place] [address]- 9399 Dec, [facility] [place] [facility] [address] [id number] [place] [address]- 7541 Dec, [facility] [place] [facility] [address] [id number] [place] [address]- 0936 Nov, [facility] [place] [facility] [address] [id number] [place] [address]- 8388 Nov, [facility] [place] [facility] [address] [id number] [place] [address]- 9020 Nov, [facility] [place] [facility] [address] [id number] [place] [address]- 5412 Nov, [facility] [place] [facility] [address] [id number] [place] [address]- 7425 Nov, [facility] [place] [facility] [address] [id number] [place] [address]- 7742 Oct, [facility] [place] [facility] [address] [id number] [place] [address]- 8479 Oct, [facility] [place] [facility] [address] [id number] [place] [address]- 5397 Sep, [facility] [place] [facility] [address] [id number] [place] [address]- 7743 Aug, [facility] [place] [facility] [address] [id number] [place] [address]- 2206 Aug, [facility] [place] [facility] [address] [id number] [place] [address]- 9990 Aug, [facility] [place] [facility] [address] [id number] [place] [address]- 7219 Aug, [facility] [place] [facility] [address] [id number] [place] [address]- 6409 Jul, [facility] [place] [facility] [address] [id number] [place] [address]- 3753 Jul, [facility] [place] [facility] [address] [id number] [place] [address]- 8452 June, [facility] [place] [facility] [address] [id number] [place] [address]- 2548 June, [facility] [place] [facility] [address] [id number] [place] [address]- 2108 June, [facility] [address] [id number] [place] [address]- 2051 08 May, 2012 [facility] [address] [id number] [place] [address]- 5454 May, [facility] [address] [id number] [place] [address]- 3415 May, [facility] [address] [id number] [place] [address]- 3944 18 Apr, 2012 [facility] [address] [id number] [place] [address]- 2163 18 Apr, 2012 [facility] [address] [facility] [id number] [place] [address]- 2378 15 Apr, 2012 [facility] [address] [facility] [id number] [place] [address]- 9225 14 Apr, 2012 [facility] [address] [facility] [id number] [place] [address]- 1663 12 Apr, 2012 [facility] [address] [id number] [place] [address]- 1887 27 Apr, 2012 [facility] [address] [id number] [place] [address]- 3630 Apr, [facility] [address] [facility] [id number] [place] [address]- 7837 Apr, [facility] [address] [facility] [id number] [place] [address] Apr, [facility] [place] [facility] [address] [id number] [place] [address] 20 Apr, 2012 [facility] [address] [facility] [id number] [place] [address] 19 Apr, 2012 [facility] [address] [facility] [id number] [place] [address] 07 Apr, 2012 [facility] [address] [id number] [place] [address] 07 Apr, 2012 [facility] [place] [facility] [address] [id number] [place] [address] Mar, [facility] [place] [facility] [address] [id number] [place] [address] Mar, [facility] [place] [facility] [address] [id number] [place] [address] Mar, [facility] [place] [facility] [address] [id number] [place] [address] Mar, [facility] [place] [facility] [address] [id number] [place] [address] Mar, [facility] [place] [facility] [address] [id number] [place] [address] Jan, [facility] [place] [facility] [address] [id number] [place] [address]- [address] 28 Jan, 2012 [facility] [place] [facility] [address] [id number] [place] [address] Jan, [facility] [place] [facility] [address] [id number] [place] [address]- [address] 22 Jan, 2012 [facility] [place] [facility] [address] [id number] [place] [address]- [address] 14 Jan, 2012 [facility] [place] [facility] [address] [id number] [place] [address] 13 Jan, 2012 [facility] [place] [facility] [address] [id number] [place] [address]- [address]36 13 Jan, 2012 [facility] [place] [facility] [address] [id number] [place] [address]- 8723 11 Jan, 2012 [facility] [place] [facility] [address] [id number] [place] [address]- [address] 06 Jan, 2012 [facility] [place] [facility] [address] [id number] [place] [address]- [address] 06 Jan, 2012 [facility] [address] [id number] [place] [address]- 4074 04 Jan, 2012 [facility] [place] [facility] [address] [id number] [place] [address] Jan, [facility] [address] [id number] [place] [address]- 1596 04 Jan, 2012 [facility] [place] [facility] [address] [id number] [place] [address]- [address] Jan, [facility] [address] [id number] [place] [address]- [address] 26 Jan, 2012 [facility] [place] [facility] [address] [id number] [place] [address]- 7748 26 Jan, 2012 [facility] [place] [facility] [address] [id number] [place] [address]- [address]057 19 Jan, 2012 [facility] [address] [id number] [place] [address]- 6[address] 19 Jan, 2012 [facility] [place] [facility] [address] [facility] [id number] [place] [address] 15 Jan, 2012 [facility] [address] [facility] [id number] [place] [address]- [address] 15 Jan, 2012 [facility] [place] [facility] [address] [id number] [place] [address]- 7[address] 14 Jan, 2012 [facility] [place] [facility] [address] [id number] [place] [address]- 9445 14 Jan, 2012 [facility] [place] [facility] [address] [id number] [place] [address]- 9428 14 Jan, 2012 [facility] [place] [facility] [address] [facility] [id number] [place] [address]- [address]887 14 Jan, 2012 [facility] [place] [facility] [address] [id number] [place] [address]- [address]65 Dec, [facility] [place] [facility] [address] [id number] [place] [address] Dec, [facility] [place] [facility] [address] [id number] [place] [address]- [address] Nov, [facility] [place] [facility] [address] [id number] [place] [address]- [address] 16 Dec, 2011 [facility] [place] [facility] [address] [id number] [place] [address]- [address]35 13 Nov, 2011 [facility] [place] [facility] [address] [id number] [place] [address]- 4838 13 Nov, 2011 [facility] [place] [facility] [address] [id number] [place] [address]- [address] Oct, [facility] [place] [facility] [address] [id number] [place] [address]81 Oct, [facility] [place] [facility] [address] [id number] [place] [address] Sep, [facility] [place] [facility] [address] [id number] [place] [address]- 89[address] Sep, [facility] [place] [facility] [address] [id number] [place] [address]- 1688 Aug, [facility] [place] [facility] [address] [id number] [place] [address]- 6[address] Aug, [facility] [place] [facility] [address] [id number], [place] [address] Aug, [facility] [place] [facility] [address] [id number] [place] [address]- [address] Aug, [facility] [place] [facility] [address] [id number] [place] [address]- 2416 June, [facility] [place] [facility] [address] [id number], [place] [address] June, [facility] [place] [facility] [address] [id number], [place] [address] May, [facility] [address] [id number] [place] [address]- 6516 Apr, [facility] [place] [facility] [address] [id number] [place] [address]- 90[address] Apr, [facility] [address] [id number] [place] [address]- [address]76 Apr, [facility] [address] [id number] [place] [address]- [address]326 Apr, [facility] [address] [id number] [place] [address]- [address] Apr, [facility] [place] [facility] [address] [id number] [place] [address]- 4006 Apr, [facility] [address] [facility] [id number] [place] [address]- [address] Mar, [facility] [address] [id number] [place] [address]- 1832 Mar, [facility] [address] [id number] [place] [address]- [address]48 Mar, [facility] [address] [facility] [id number] [place] [address]- [address] Jan, [facility] [address] [id number] [place] [address]- 9[address] Jan, [facility] [place] [facility] [address] [id number] [place] [address]- 27[address] Jan, [facility] [place] [facility] [address] [id number] [place] [address]- 3025 Jan, [facility] [place] [facility] [address] [id number] [place] [address]- 0100 Jan, [facility] [place] [facility] [address] [facility] [id number] [place] [address]- 6534 Jan, [facility] [place] [facility] [address] [id number] [place] [address]- 1243 Jan, [facility] [place] [facility] [address] [id number] [place] [address] Dec, [facility] [place] [facility] [address] [id number] [place] [address]- [address] Dec, [facility] [place] [facility] [address] [id number] [place] [address] Nov, [facility] [place] [facility] [address] [id number] [place] [address] Nov, [facility] [place] [facility] [address] [id number] [place] [address] Nov, [facility] [place] [facility] [address] [id number] [place] [address] Nov, [facility] [place] [facility] [address] [id number] [place] [address] Oct, [facility] [place] [facility] [address] [id number] [place] [address] Sep, [facility] [place] [facility] [address] [id number] [place] [address] Mar, [facility] [place] [facility] [address] [id number] [place] [address] Jan, [facility] [place] [facility] [address] [id number] [place] [address] Dec, [facility] [place] [facility] [address] [id number] [place] [address] Dec, [facility] [place] [facility] [address] [id number] [place] [address] Dec, [facility] [place] [facility] [address] [id number] [place] [address] Dec, [facility] [place] [facility] [address] [id number] [place] [address] 26 Nov, 2009 [facility] [address] [id number] [place] [address] 15 Nov, 2009 [facility] [place] [facility] [address] [id number], [place] [address] 14 Nov, 2009 [facility] [place] [facility] [address] [facility] [id number] [place] [address] 14 Nov, 2009 [facility] [place] [facility] [address] [id number], [place] [address] 13 Oct, 2009 [facility] [place] [facility] [address] [id number] [place] [address] 17 Jul, 2009 [facility] [place] [facility] [address] [id number], [place] [address] 17 Jun, 2009 [facility] [place] [facility] [address] [id number] [place] [address] June, [facility] [place] [facility] [address] [id number], [place] [address] 17 Apr, 2009 [facility] [place] [facility] [address] [id number], [place] [address] Mar, [facility] [place] [facility] [address] [id number], [place] [address] 24 Jan, 2009 [facility] [place] [facility] [address] [id number], [place] [address] Jan, [facility] [place] [facility] [address] [id number], [place] [address] 27 Dec, 2008 [facility] [place] [facility] [address] [id number], [place] [address] 25 Dec, 2008 [facility] [place] [facility] [address] [facility] [id number], [place] [address] 13 Dec, 2008 [facility] [place] [facility] [address] [facility] [id number], [place] [address] 13 Dec, 2008 [facility] [place] [facility] [address] [facility] [id number] [place] [address] Nov, [facility] [address] [facility] [id number] [place] [address] Jul, [facility] [address] [facility] [id number] [place] [address] June, IMMUNIZATIONS No Known Immunizations SOCIAL HISTORY Never Assessed REASON FOR VISIT Controlled Med Refill PLAN OF CARE VITAL SIGNS MEDICATIONS Medication Instructions Dosage Frequency Start Date End Date Duration Status Tizanidine HCl 4 MG Orally 3-4 times daily 1 tablet as needed Apr, Active Endocet 10-325 MG Orally every 4-6 hours 1 tablet as needed Mar, Active RESULTS No Results PROCEDURES No Known procedures INSTRUCTIONS MEDICATIONS ADMINISTERED No Known Medications MEDICAL (GENERAL) HISTORY Type Description Date Medical History hypertension Medical History sleep apnea-did not tolerate CPAP Medical History oxygen dependent at [facility] Medical History colonic polyps Medical History hyperlipidemia [...]
--- OUTSIDE RECORDS SUMMARY | 2018-02-26 19:25 | XMS REPORT ---
Author Author GRAHAM CHRIS [facility] Address [address] [place] [address] Care Team Providers Care Quality Control Lead Name Role Phone GRAHAMELLIOTT HANNAHANY Unavailable PROBLEMS Type Condition ICD9-CM Code XYI09-NU Code Onset Dates Condition Status SNOMED Code Problem Pulmonary asbestosis J61 Active 63493115 Problem Left ventricular diastolic dysfunction I51.9 Active 198437724 Problem Chronic gout, unspecified cause, unspecified site M1A.[id number] Active 25348027 Problem Renal cyst, left N28.1 Active 12657414 Problem History of weight loss surgery Z98.84 Active 140274233 Problem Nocturnal hypoxia G47.34 Active 156546980 Problem Obstructive sleep apnea syndrome G47.33 Active 44737333 Problem History of diverticulitis Z87.19 Active 318373373233593 Problem Allergic rhinitis, unspecified allergic rhinitis type J30.9 Active 81852402 Problem Erectile dysfunction due to diseases classified elsewhere N52.1 Active 505225026 Problem Acute right-sided low back pain with right-sided sciatica M54.41 Active 044482288 Problem Psoriasis L40.9 Active 0030189 Problem Essential hypertension I10 Active 19728185 Problem Nephrolithiasis N20.0 Active 28155269 Problem Chronic prescription opiate use Z79.899 Active 708494085 Problem 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 Active 95056630 Problem Benign prostatic hyperplasia, presence of lower urinary tract symptoms unspecified, unspecified morphology N40.0 Active 476486286 Problem Moderate episode of recurrent major depressive disorder F33.1 Active 658986276 Problem Age-related osteoporosis without current pathological fracture M81.0 Active 34015958 Problem Low back pain M54.5 Active 851539882 Problem Anxiety F41.9 Active 58620113 Problem Urge incontinence N39.41 Active 575802872 Problem Hyperlipidemia, unspecified E78.5 Active 79833127 Problem Esophageal stricture K22.2 Active 52212882 Problem Cervicalgia M54.2 Active 8886070289398 Problem Primary insomnia F51.01 Active 439753962 ALLERGIES Substance Reaction Event Type Date Status Sulfamethoxazole Unknown Drug Allergy Jan, Active Benazepril HCl hypotension Drug Allergy Jan, Active Ampicillin hives Drug Allergy Jan, Active ENCOUNTERS Encounter Location Date Diagnosis [facility] [id number] [place] [address] 62340- 0223 June, Anxiety F41.9 [facility] [id number] [place] [address] 84448- 8367 June, [facility] [id number] [place] [address] 50355- 2289 June, Low back pain M54.5 ; Chronic prescription opiate use Z79.899 ; Candidal intertrigo B37.2 ; Urge incontinence N39.41 ; Essential hypertension I10 ; Moderate episode of recurrent major depressive disorder F33.1 ; Age-related osteoporosis without current pathological fracture M81.0 and BMI 45.0-49.9, adult Z68.42 [facility] [id number] [place] [address] 92771- 8931 June, [facility] [id number] [place] [address] 62700- 3896 May, Anxiety F41.9 [facility] [id number] [place] [address] 13606- 0817 May, [facility] [id number] [place] [address] 66336- 5575 May, [facility] [id number] [place] [address] 81188- 4507 Apr, Anxiety F41.9 [facility] [id number] [place] [address] 48953- 5717 Apr, [facility] [id number] [place] [address] 27672- 7318 Apr, Low back pain M54.5 [facility] [address] [place] [address] 6187 Apr, [facility] [id number] [place] [address] 20676- 1371 Apr, [facility] [id number] [place] [address] 81017- 3634 Apr, Anxiety F41.9 [facility] [id number] [place] [address] 33086- 1411 Apr, Right groin pain R10.31 [facility] [id number] [place] [address] 97684- 6660 Mar, [facility] [id number] [place] [address] 95216- 3258 Mar, [facility] [id number] [place] [address] 51378- 7228 Mar, Anxiety F41.9 [facility] [id number] [place] [address] 64270- 8301 Mar, Low back pain M54.5 [facility] [id number] [place] [address] 69924- 1650 Mar, Right groin pain R10.31 ; Low back pain M54.5 and BMI 45.0- 49.9, adult Z68.42 [facility] [id number] [place] [address] 33590- 5121 Mar, [facility] [id number] [place] [address] 76153- 4870 Mar, [facility] [id number] [place] [address] 55144- 0742 Mar, [facility] [id number] [place] [address] 45638 -5850 Mar, [facility] [id number] [place] [address] 33769 -5130 15 Yousif, 2018 Cough R05 ; Pneumonia of right lower lobe due to infectious organism J18.1 and Abnormal chest x-ray R93.8 [facility] [id number] [place] [address] 03642- 5808 Mar, [facility] [id number] [place] [address] 30842- 0521 Mar, [facility] [id number] [place] [address] 47588- 5363 Jan, Anxiety F41.9 [facility] [id number] [place] [address] 63992- 4270 Jan, [facility] [id number] [place] [address] 76841- 3865 Jan, Moderate episode of recurrent major depressive disorder F33.1 [facility] [id number] [place] [address] 58700- 1107 Jan, Subacromial bursitis of right shoulder joint M75.51 ; Shortness of breath on exertion R06.02 and BMI 45.0-49.9, adult Z68.42 [facility] [id number] [place] [address] 67241- 1229 Dec, Anxiety F41.9 [facility] [id number] [place] [address] 63659- 8423 Dec, [facility] [id number] [place] [address] 14555- 7318 Dec, Low back pain M54.5 [facility] [id number] [place] [address] 88481- 8840 Oct, Low back pain M54.5 [facility] [id number] [place] [address] 76539- 7479 Sep, [facility] [id number] [place] [address] 60310- 0528 Sep, Erectile dysfunction due to diseases classified elsewhere N52.1 [facility] [id number] [place] [address] 30844- 7475 Sep, Erectile dysfunction due to diseases classified elsewhere N52.1 [facility] [id number] [place] [address] 20554- 0473 Sep, [facility] [id number] [place] [address] 13112- 2363 Sep, Erectile dysfunction due to diseases classified elsewhere N52.1 [facility] [id number] [place] [address] 80123- 2586 Sep, Low back pain M54.5 and Anxiety F41.9 [facility] [address] 36564 -9215 Aug, Acute allergic rhinitis J30.9 [facility] [id number] [place] [address] 80689- 7130 Aug, [facility] [id number] [place] [address] 12790- 5425 Aug, Anxiety F41.9 [facility] [id number] [place] [address] 67473- 3687 Jul, Low back pain M54.5 ; Chronic prescription opiate use Z79.899 and Essential hypertension I10 [facility] [id number] [place] [address] 56988- 8224 Jul, Anxiety F41.9 and Low back pain M54.5 [facility] [id number] [place] [address] 78094- 1920 June, [facility] [id number] [place] [address] 10632- 1450 June, Anxiety F41.9 [facility] [id number] [place] [address] 99905- 0542 May, Low back pain M54.5 [facility] [id number] [place] [address] 35778- 6012 May, [facility] [id number] [place] [address] 01732- 7605 May, Anxiety F41.9 [facility] [id number] [place] [address] 94924- 3856 Apr, [facility] [id number] [place] [address] 03190- 3873 Apr, Low back pain M54.5 [facility] [id number] [place] [address] 14819- 0435 Apr, Moderate episode of recurrent major depressive disorder F33.1 [facility] [id number] [place] [address] 44568- 0419 Apr, Anxiety F41.9 [facility] [id number] [place] [address] 77238- 9673 Apr, Low back pain M54.5 [facility] [id number] [place] [address] 04161- 3291 15 Apr, 2016 Elevated alkaline phosphatase level R74.8 [facility] [id number] [place] [address] 23490- 9039 10 Apr, 2016 Alkaline phosphatase elevation R74.8 [facility] [id number] [place] [address] 99007- 3741 06 Apr, 2016 Anxiety F41.9 [facility] [id number] [place] [address] 72526- 1750 03 Apr, 2016 Low back pain M54.5 [facility] [id number] [place] [address] 44146- 1620 03 Apr, 2016 History of weight loss surgery Z98.84 ; Encounter for hepatitis C screening test for low risk patient Z11.59 ; History of herpes genitalis Z86.19 ; Essential hypertension I10 ; Hyperlipidemia, unspecified E78.5 ; Exposure to STD Z20.2 and Benign prostatic hyperplasia, presence of lower urinary tract symptoms unspecified, unspecified morphology N40.0 [facility] [address] [address]- 0334 02 Apr, 2016 [facility] [id number] [place] [address] 54964- 7161 Mar, [facility] [id number] [place] [address] 79406- 7542 Mar, [facility] [id number] [place] [address] 53272- 9982 Mar, [facility] [id number] [place] [address] 69282- 7512 Mar, Acute right-sided low back pain with right-sided sciatica M54.41 [facility] [id number] [place] [address] 83387- 1983 Mar, Low back pain M54.5 [facility] [id number] [place] [address] 55687 -5759 Mar, Muscle strain of chest wall, initial encounter S29.011A ; Muscle strain of right thigh, initial encounter S76.911A and Acute non- recurrent maxillary sinusitis J01.00 [facility] [id number] [place] [address] 95969- 4208 Mar, Benign prostatic hyperplasia, presence of lower urinary tract symptoms unspecified, unspecified morphology N40.0 [facility] [id number] [place] [address] 30913- 4142 Jan, Low back pain M54.5 [facility] [id number] [place] [address] 36418- 6583 13 Jan, 2016 Low back pain M54.5 ; Essential hypertension I10 ; Hyperlipidemia, unspecified E78.5 ; Anxiety F41.9 ; Moderate episode of recurrent major depressive disorder F33.1 ; Primary insomnia F51.01 ; Exposure to STD Z20.2 ; Encounter for hepatitis C screening test for low risk patient Z11.59 and History of herpes genitalis Z86.19 [facility] [id number] [place] [address] 05727- 6524 Dec, [facility] [id number] [place] [address] 38720- 0607 Nov, [facility] [id number] [place] [address] 47075- 6109 Nov, Anxiety F41.9 ; Cervicalgia M54.2 ; Moderate episode of recurrent major depressive disorder F33.1 and Encounter for immunization Z23 [facility] [id number] [place] [address] 74585- 8680 Oct, [facility] [address] 47661- 3566 22 Nov, 2015 [facility] [id number] [place] [address] 08807- 3688 16 Nov, 2015 [facility] [id number] [place] [address] 56850- 2467 Oct, [facility] [id number] [place] [address] 03614- 8582 Sep, [facility] [id number] [place] [address] 16497- 0845 Aug, Low back pain M54.5 ; Anxiety F41.9 ; Primary insomnia F51.01 and Chronic prescription opiate use Z79.899 [facility] [id number] [place] [address] 86672- 2765 Jul, [facility] [id number] [place] [address] 02774- 9091 Jul, [facility] [id number] [place] [address] 27274- 9092 Jul, [facility] [id number] [place] [address] 45831- 1745 Jul, [facility] [id number] [place] [address] 83219- 1115 Jul, [facility] [address] [address]- 3669 June, [facility] [id number] [place] [address] 54081- 0890 June, [facility] [id number] [place] [address] 31497- 8270 June, [facility] [id number] [place] [address] 94133- 1632 June, [facility] [id number] [place] [address] 39081- 8881 May, Preoperative cardiovascular examination Z01.810 [facility] [id number] [place] [address] 29283- 7966 May, [facility] [id number] [place] [address] 42166- 1773 Apr, [facility] [id number] [place] [address] 17696- 3442 Apr, Osteoarthritis of right knee M17.9 [facility] [id number] [place] [address] 65732- 0782 Apr, [facility] [id number] [place] [address] 36058- 6798 Apr, [facility] [id number] [place] [address] 59344- 3043 Apr, [facility] [id number] [place] [address] 99096- 3638 Apr, [facility] [id number] [place] [address] 35848- 3444 Apr, History of excessive cerumen Z78.9 ; Obstructive sleep apnea syndrome G47.33 ; History of diverticulitis Z87.19 and Nephrolithiasis N20.0 [facility] [id number] [place] [address] 64474- 0689 Apr, [facility] [address] [address] -7532 Apr, Abdominal pain R10.9 [facility] [id number] [place] [address] 77946- 4094 Apr, [facility] [id number] [place] [address] 83403- 6789 Apr, Osteoarthritis of right knee M17.9 [facility] [id number] [place] [address] 96865- 8682 Mar, [facility] [id number] [place] [address] 93732- 9356 Mar, [facility] [id number] [place] [address] 26640- 6717 14 Mar, 2015 [facility] [id number] [place] [address] 14934- 9752 Mar, [facility] [id number] [place] [address] 56127 -6937 Mar, Pyelonephritis N12 ; Left-sided thoracic back pain M54.6 ; Hematuria, unspecified R31.9 and Kidney stone N20.0 [facility] [id number] [place] [address] 70192- 8987 Mar, History of weight loss surgery Z98.84 [facility] [id number] [place] [address] 44833- 8034 Mar, History of weight loss surgery Z98.84 and Hyperlipidemia, unspecified E78.5 [facility] [id number] [place] [address] 46215- 8056 Mar, Low back pain M54.5 ; Chronic prescription opiate use Z79.899 ; Hyperlipidemia, unspecified E78.5 ; Spasm of back muscles M62.830 and History of weight loss surgery Z98.84 [facility] [id number] [place] [address] 70822- 0405 Jan, [facility] [address] [address] Jan, [facility] [id number] [place] [address] 31127- 6037 Jan, [facility] [address] 8811 Dec, [facility] [id number] [place] [address] 48633- 3617 Dec, [facility] [id number] [place] [address] 166732- 9476 Dec, [facility] [id number] [place] [address] 010077- 4141 Nov, [facility] [id number] [place] [address] 74698- 1162 Nov, Obstructive sleep apnea syndrome G47.33 and Pharyngoesophageal dysphagia R13.14 [facility] [address] [address]- 4470 Nov, [facility] [id number] [place] [address] 661478- 4106 Nov, [facility] [id number] [address]- 5517 Nov, [facility] [id number] [place] [address] [id number] 30 Oct, 2014 Dental examination V72.2 [facility] [address] [address]- 6231 Oct, [facility] [id number] [place] [address] 045865- 5802 Oct, [facility] [address] [address] 0441 Oct, [facility] [id number] [place] [address] 43020- 0369 Oct, [facility] [id number] [place] [address] 60046- 9315 Oct, BPH (benign prostatic hyperplasia) 600.00 and Urinary frequency 788.41 [facility] [id number] [place] [address] 05506- 3560 Oct, [facility] [address] 68994- 0538 Oct, [facility] [address] 98643- 6004 Oct, [facility] [address] 39820- 1328 Sep, Cerumen impaction 380.4 ; Cerumen debris on tympanic membrane 380.4 ; Psoriasis 696.1 and MICKY (secretory otitis media) 381.4 [facility] [id number] [place] [address] [id number] Sep, Dental examination V72.2 [facility] [id number] [place] [address]- [address] Sep, Fatigue 780.79 ; Irritable bowel syndrome 564.1 ; Overweight 278.02 ; Poor sleep V69.4 ; Shaking spells 781.0 and Broken tooth 873.63 [facility] [id number] [place] [address]- 2045 Sep, [facility] [id number] [place] [address]31- 9329 Sep, [facility] [id number] [place] [address]- 3549 Aug, [facility] [id number] [place] [address] [id number] Jul, [facility] [id number] [place] [id number]- 4834 Jul, [facility] [address] [facility] [id number] [place] [address] Jul, [facility] [address] [id number] [place] [address] Jul, [facility] [address] [facility] [id number] [place] [address] June, Arthritis of knee, right 716.96 [facility] [address] [facility] [id number] [place] [address] June, [facility] [address] [facility] [id number] [place] [address] June, Elevated blood pressure reading without diagnosis of hypertension 796.2 [facility] [address] [facility] [id number] [place] [address] June, [facility] [id number] [place] [address] June, [facility] [address] [id number] [place] [address] June, [facility] [address] [id number] [place] [address] June, [facility] [address] [id number] [place] [address] May, [facility] [address] [id number] [place] [address]- [address]753 May, [facility] [address] [facility] [id number] [place] [address]- 1702 Apr, [facility] [address] [id number] [place] [address]- [address]35 Apr, [facility] [address] [facility] [id number] [place] [address]- [address]58 Apr, [facility] [address] [id number] [place] [address]- 1327 Apr, [facility] [place] [facility] [address] [id number] [place] [address]- [address] Apr, 2014 [facility] [place] [facility] [address] [address] [id number] [place] [address] Apr, 2014 [facility] [place] [facility] [address] [id number] [place] [address] Apr, 2014 [facility] [place] [facility] [address] [id number] [place] [address] 4554 13 Apr, 2014 [facility] [place] [facility] [address] [id number] [place] [address] 4115 Apr, 2014 [facility] [place] [facility] [address] [id number] [place] [address] 2611 Apr, 2014 [facility] [place] [facility] [address] [facility] [id number] [place] [address] 0576 Apr, 2014 [facility] [place] [facility] [address] [id number] [place] [address] 0027 Apr, 2014 [facility] [place] [facility] [address] [id number] [place] [address] 0312 24 Apr, 2014 [facility] [place] [facility] [address] [facility] [id number] [place] [address]- 7811 24 Apr, 2014 [facility] [place] [facility] [address] [facility] [id number] [place] [address] 8678 Apr, 2014 [facility] [place] [facility] [address] [id number] [place] [address] 2626 Apr, 2014 [facility] [place] [facility] [address] [id number] [place] [address]- 6992 Apr, 2014 [facility] [place] [facility] [address] [id number] [place] [address]- 3489 Apr, 2014 [facility] [place] [facility] [address] [facility] [id number] [place] [address] 3175 18 Apr, 2014 [facility] [place] [facility] [address] [facility] [id number] [place] [address] 5231 18 Apr, 2014 [facility] [place] [facility] [address] [id number] [place] [address]- 8096 Apr, 2014 [facility] [place] [facility] [address] [id number] [place] [address]- 2546 Apr, 2014 [facility] [place] [facility] [address] [facility] [id number] [place] [address]- 3102 Apr, 2014 [facility] [place] [facility] [address] [facility] [id number] [place] [address] 9727 Apr, 2014 [facility] [place] [facility] [address] [facility] [id number] [place] [address]- 6895 Apr, 2014 [facility] [place] [facility] [address] [facility] [id number] [place] [address] 3388 Apr, 2014 [facility] [place] [facility] [address] [id number] [place] [address]- 2615 Apr, 2014 [facility] [place] [facility] [address] [facility] [id number] [place] [address]- 9061 Apr, 2014 [facility] [place] [facility] [address] [id number] [place] [address]- 0271 Apr, 2014 [facility] [place] [facility] [address] [id number] [place] [address]- 1591 Apr, 2014 [facility] [place] [facility] [address] [facility] [id number] [address] 2547 Apr, 2014 [facility] [place] [facility] [address] [facility] [id number] [place] [address]- 0652 Apr, 2014 [facility] [place] [facility] [address] [facility] [id number] [place] [address]- 5915 Apr, 2014 [facility] [place] [facility] [address] [facility] [id number] [place] [address]- 3384 Mar, [facility] [place] [facility] [address] [facility] [id number] [address] 4684 Mar, [facility] [place] [facility] [address] [id number] [place] [address]- 0478 Mar, [facility] [place] [facility] [address] [id number] [place] [address]- 2473 Mar, [facility] [place] [facility] [address] [id number] [place] [address]- 5693 Mar, [facility] [place] [facility] [address] [id number] [place] [address]- 2115 Mar, [facility] [place] [facility] [address] [id number] [place] [address]- 8937 Mar, [facility] [place] [facility] [address] [id number] [place] [address]- 3705 Mar, [facility] [place] [facility] [address] [id number] [place] [address]- 4118 Mar, [facility] [place] [facility] [address] [id number] [place] [address]- 3834 Mar, [facility] [place] [facility] [address] [id number] [place] [address]- 4436 Jan, [facility] [place] [facility] [address] [id number] [place] [address]- 8490 Jan, [facility] [place] [facility] [address] [id number] [place] [address]- 5488 Jan, [facility] [place] [facility] [address] [id number] [place] [address]- 2484 Jan, [facility] [place] [facility] [address] [id number] [place] [address]- 8847 Jan, [facility] [place] [facility] [address] [id number] [place] [address] 1024 Jan, [facility] [place] [facility] [address] [id number] [place] Jan, [facility] [place] [facility] [address] [id number] [place] [address]- 2327 05 Jan, 2014 [facility] [place] [facility] [address] [id number] [place] [address]- 4696 Jan, [facility] [place] [facility] [address] [id number] [place] [address]- 1676 Jan, [facility] [place] [facility] [address] [id number] [place] [address]- 3734 Jan, [facility] [place] [facility] [address] [id number] [place] [address]- 8588 Jan, [facility] [place] [facility] [address] [id number] [place] [address]- 9802 Dec, [facility] [place] [facility] [address] [id number] [place] [address]- 8527 Dec, [facility] [place] [facility] [address] [id number] [place] [address]- 6081 Dec, [facility] [place] [facility] [address] [id number] [place] [address]- 0325 Dec, [facility] [place] [facility] [address] [id number] [place] [address]- 8192 Dec, [facility] [place] [facility] [address] [id number] [place] [address]- 1605 Dec, [facility] [place] [facility] [address] [id number] [place] [address]- 9689 Dec, [facility] [place] [facility] [address] [id number] [place] [address]- 7608 Dec, [facility] [place] [facility] [address] [id number] [place] [address]- 8122 Dec, [facility] [place] [facility] [address] [id number] [place] [address]- 0543 Dec, [facility] [place] [facility] [address] [id number] [place] [address]- 7291 Nov, [facility] [place] [facility] [address] [id number] [place] [address]- 9931 31 Nov, 2013 [facility] [place] [facility] [address] [id number] [place] [address]- 0852 Nov, [facility] [place] [facility] [address] [id number] [place] [address]- 5423 Nov, [facility] [place] [facility] [address] [id number] [place] [address]- 2594 Nov, [facility] [place] [facility] [address] [id number] [place] [address]- 3917 Nov, [facility] [place] [facility] [address] [id number] [place] [address]- 1803 Nov, [facility] [place] [facility] [address] [id number] [place] [address]- 4978 Nov, [facility] [place] [facility] [address] [id number] [place] [address]- 7499 Nov, [facility] [place] [facility] [address] [id number] [place] [address]- 3412 24 Nov, 2013 [facility] [place] [facility] [address] [id number] [place] [address]- 5373 Nov, [facility] [place] [facility] [address] [id number] [place] [address]- 1609 17 Nov, 2013 [facility] [place] [facility] [address] [id number], [place] [address]- 9134 14 Nov, 2013 [facility] [place] [facility] [address] [id number] [place] [address]- 1375 14 Nov, 2013 [facility] [place] [facility] [address] [id number] [place] [address]- 0094 10 Nov, 2013 [facility] [place] [facility] [address] [id number] [place] [address]- 2369 10 Nov, 2013 [facility] [place] [facility] [address] [id number] [place] [address]- 9988 08 Nov, 2013 [facility] [place] [facility] [address] [id number] [place] [address]- 3553 08 Nov, 2013 [facility] [place] [facility] [address] [id number] [place] [address]- 3936 Nov, [facility] [place] [facility] [address] [id number] [place] [address]- 8859 Nov, [facility] [place] [facility] [address] [id number] [place] [address]- 1790 Oct, 2013 [facility] [place] [facility] [address] [id number] [place] [address]- 4272 Oct, 2013 [facility] [place] [facility] [address] [id number] [place] [address]- 7401 Oct, 2013 [facility] [place] [facility] [address] [id number] [place] [address]- 4519 Oct, 2013 [facility] [place] [facility] [address] [id number] [place] [address]- 0667 Oct, 2013 [facility] [place] [facility] [address] [id number] [place] [address]- 3685 Oct, 2013 [facility] [place] [facility] [address] [id number] [place] [address]- 3298 Oct, [facility] [place] [facility] [address] [id number] [place] [address]- 5396 Oct, 2013 [facility] [place] [facility] [address] [id number] [place] [address]- 8928 Oct, 2013 [facility] [place] [facility] [address] [id number] [place] [address]- 3240 Oct, [facility] [place] [facility] [address] [id number] [place] [address]- 1967 Sep, [facility] [place] [facility] [address] [id number] [place] [address]- 9312 Sep, [facility] [place] [facility] [address] [id number] [place] [address]- 2533 Sep, [facility] [place] [facility] [address] [id number] [place] [address]- 3162 Sep, [facility] [place] [facility] [address] [id number] [place] [address]- 2793 Sep, [facility] [place] [facility] [address] [id number] [place] [address]- 8273 Sep, [facility] [place] [facility] [address] [id number] [place] [address]- 4387 Sep, [facility] [place] [facility] [address] [id number] [place] [address]- 5180 Sep, [facility] [place] [facility] [address] [id number] [place] [address]- 4781 Sep, [facility] [place] [facility] [address] [id number] [place] [address]- 7972 Sep, [facility] [place] [facility] [address] [id number] [place] [address]- 1627 Sep, [facility] [place] [facility] [address] [id number] [place] [address]- 2829 Sep, [facility] [place] [facility] [address] [id number] [place] [address]- 1719 Sep, [facility] [place] [facility] [address] [id number] [place] [address]- 2221 Sep, [facility] [place] [facility] [address] [id number] [place] [address]- 1552 Sep, [facility] [place] [facility] [address] [id number] [place] [address]- 8562 Sep, [facility] [place] [facility] [address] [id number] [place] [address]- 4843 Sep, [facility] [place] [facility] [address] [id number] [place] [address]- 0636 Sep, [facility] [place] [facility] [address] [id number] [place] [address]- 9767 Sep, [facility] [place] [facility] [address] [id number] [place] [address]- 0543 Sep, [facility] [place] [facility] [address] [id number] [place] [address]- 5544 Sep, [facility] [place] [facility] [address] [id number] [place] [address]- 2703 Sep, [facility] [place] [facility] [address] [id number] [place] [address]- 6616 Sep, [facility] [place] [facility] [address] [id number] [place] [address]- 1517 Sep, [facility] [place] [facility] [address] [id number] [place] [address]- 8232 Sep, [facility] [place] [facility] [address] [id number] [place] [address]- 2524 Aug, [facility] [place] [facility] [address] [id number] [place] [address]- 1023 Aug, [facility] [place] [facility] [address] [id number] [place] [address]- 8619 Aug, [facility] [place] [facility] [address] [id number] [place] [address]- 7442 Aug, [facility] [place] [facility] [address] [id number], [place] [address]- 9000 Aug, [facility] [place] [facility] [address] [id number] [place] [address]- 5715 Aug, [facility] [place] [facility] [address] [id number] [place] [address]- 7769 Aug, [facility] [place] [facility] [address] [id number] [place] [address]- 1390 Aug, [facility] [place] [facility] [address] [id number] [place] [address]- 3236 Aug, [facility] [place] [facility] [address] [id number] [place] [address]- 8440 Aug, [facility] [place] [facility] [address] [id number] [place] [address]- 2490 Aug, [facility] [place] [facility] [address] [id number] [place] [address]- 6532 Aug, [facility] [place] [facility] [address] [id number] [place] [address]- 4915 Aug, [facility] [place] [facility] [address] [id number] [place] [address]- 0626 Jul, [facility] [place] [facility] [address] [id number] [place] [address]- 6069 Jul, [facility] [place] [facility] [address] [id number] [place] [address]- 3241 Jul, [facility] [place] [facility] [address] [id number] [place] [address]- 7271 Jul, [facility] [place] [facility] [address] [id number] [place] [address]- 5460 Jul, [facility] [place] [facility] [address] [id number] [place] [address]- 9554 Jul, [facility] [place] [facility] [address] [id number] [place] [address]- 9068 Jul, [facility] [place] [facility] [address] [id number] [place] [address]- 2611 June, [facility] [place] [facility] [address] [id number] [place] [address]- 7005 June, [facility] [place] [facility] [address] [id number] [place] [address]- 9861 June, [facility] [place] [facility] [address] [id number] [place] [address]- 8246 June, [facility] [place] [facility] [address] [id number] [place] [address]- 1776 May, [facility] [place] [facility] [address] [id number] [place] [address]- 6565 May, [facility] [place] [facility] [address] [id number] [place] [address]- 7607 May, [facility] [place] [facility] [address] [id number] [place] [address]- 0963 May, [facility] [place] [facility] [address] [id number] [place] [address]- 1162 May, [facility] [place] [facility] [address] [id number] [place] [address]- 9565 May, [facility] [place] [facility] [address] [id number] [place] [address]- 8638 May, [facility] [place] [facility] [address] [id number] [place] [address]- 1119 May, [facility] [place] [facility] [address] [id number] [place] [address]- 5253 May, [facility] [place] [facility] [address] [id number] [place] [address]- 9267 May, [facility] [place] [facility] [address] [id number] [place] [address]- 1298 Apr, [facility] [place] [facility] [address] [id number], [place] [address]- 7679 Apr, [facility] [place] [facility] [address] [id number] [place] [address]- 2679 Apr, [facility] [place] [facility] [address] [id number] [place] [address]- 1922 Apr, [facility] [place] [facility] [address] [id number] [place] [address]- 9683 Apr, [facility] [place] [facility] [address] [id number], [place] [address]- 9649 Apr, [facility] [place] [facility] [address] [id number] [place] [address]- 2036 Apr, [facility] [place] [facility] [address] [id number] [place] [address]- 8156 Apr, [facility] [place] [facility] [address] [id number] [place] [address]- 4116 Apr, [facility] [place] [facility] [address] [id number] [place] [address]- 2631 Apr, [facility] [place] [facility] [address] [id number] [place] [address]- 1044 Mar, [facility] [place] [facility] [address] [id number] [place] [address]- 1309 Mar, [facility] [place] [facility] [address] [facility] [id number] [place] [address]- 2786 Mar, [facility] [place] [facility] [address] [id number] [place] [address]- 6903 Mar, [facility] [place] [facility] [address] [id number] [place] [address]- 6661 Mar, [facility] [place] [facility] [address] [facility] [id number] [place] [address]- 7435 Mar, [facility] [place] [facility] [address] [id number] [place] [address]- 7382 Jan, [facility] [place] [facility] [address] [id number] [place] [address]- 1834 Jan, [facility] [place] [facility] [address] [id number] [place] [address]- 5552 Jan, [facility] [place] [facility] [address] [id number] [place] [address]- 7293 Jan, [facility] [place] [facility] [address] [id number] [place] [address]- 8905 Jan, [facility] [place] [facility] [address] [id number] [place] [address]- 1156 Jan, [facility] [place] [facility] [address] [id number] [place] [address]- 8604 Jan, [facility] [place] [facility] [address] [id number] [place] [address]- 8282 Jan, [facility] [place] [facility] [address] [id number] [place] [address]- 9918 Jan, [facility] [address] [id number] [place] [address]- 9127 Dec, [facility] [place] [facility] [address] [id number] [place] [address]- 9842 Dec, [facility] [address] [id number] [place] [address]- 0834 Dec, [facility] [address] [id number] [place] [address]- 0074 Dec, [facility] [address] [id number] [place] [address]- 7637 Dec, [facility] [address] [id number] [place] [address]- 5024 Dec, [facility] [place] [facility] [address] [id number] [place] [address]- 9734 Dec, [facility] [place] [facility] [address] [id number], [place] [address]- 7086 Dec, [facility] [place] [facility] [address] [id number] [place] [address]- 8917 Dec, [facility] [place] [facility] [address] [id number] [place] [address]- 6842 Dec[facility] [place] [facility] [address] [id number] [place] [address]- 5192 04 Dec, 2012 [facility] [place] [facility] [address] [id number] [place] [address]- 2546 Nov, [facility] [place] [facility] [address] [id number] [place] [address]- 2251 Nov, [facility] [place] [facility] [address] [id number] [place] [address]- 3253 Nov, [facility] [place] [facility] [address] [id number] [place] [address]- 2718 Nov, [facility] [place] [facility] [address] [id number] [place] [address]- 2180 Nov, [facility] [place] [facility] [address] [id number] [place] [address]- 4445 Oct, [facility] [place] [facility] [address] [id number] [place] [address]- 5682 Oct, [facility] [place] [facility] [address] [id number] [place] [address]- 5294 Sep, [facility] [place] [facility] [address] [id number] [place] [address]- 1994 Aug, [facility] [place] [facility] [address] [id number] [place] 4838 Aug, [facility] [place] [facility] [address] [id number] [place] [address]- 2501 Aug, [facility] [place] [facility] [address] [id number] [place] [address]- 1685 Aug, [facility] [place] [facility] [address] [id number] [place] [address]- 9731 Jul, [facility] [place] [facility] [address] [id number] [place] [address] Jul, [facility] [place] [facility] [address] [id number] [place] [address] June, [facility] [place] [facility] [address] [id number] [place] [address] June, [facility] [place] [facility] [address] [id number] [place] [address] June, [facility] [address] [id number] [place] [address] May, [facility] [address] [id number] [place] [address] May, [facility] [address] [id number] [place] [address] May, [facility] [address] [id number] [place] [address] Apr, [facility] [address] [id number] [place] [address] 18 Apr, 2012 [facility] [address] [facility] [id number] [place] [address] 15 Apr, 2012 [facility] [address] [id number] [place] [address] 14 Apr, 2012 [facility] [address] [id number] [place] [address] Apr, [facility] [address] [id number] [place] [address] Apr, [facility] [address] [facility] [id number] [place] [address] Apr, [facility] [address] [id number] [place] [address] Apr, [facility] [address] [id number] [place] [address] Apr, [facility] [place] [facility] [address] [id number] [place] [address] Apr, [facility] [address] [facility] [id number] [place] [address]- [address] 19 Apr, 2012 [facility] [address] [id number] [place] [address] 6784 07 Apr, 2012 [facility] [address] [id number] [place] [address] 07 Apr, 2012 [facility] [place] [facility] [address] [id number] [place] [address] Mar, [facility] [place] [facility] [address] [id number] [place] [address] Mar, [facility] [place] [facility] [address] [id number] [place] [address]57 16 Mar, 2012 [facility] [address] [id number] [place] [address] Mar, [facility] [address] [id number] [place] [address] Mar, [facility] [address] [id number] [place] [address] Jan, [facility] [place] [facility] [address] [id number] [place] [address] 28 Jan, 2012 [facility] [address] [id number] [place] [address] Jan, [facility] [place] [facility] [address] [id number] [place] [address] 22 Jan, 2012 [facility] [address] [id number] [place] [address] 1549 14 Jan, 2012 [facility] [place] [facility] [address] [id number] [place] [address]246 13 Jan, 2012 [facility] [place] [facility] [address] [id number] [place] [address] 2543 13 Jan, 2012 [facility] [place] [facility] [address] [id number] [place] [address] 11 Jan, 2012 [facility] [place] [facility] [address] [id number] [place] [address]- 1596 06 Jan, 2012 [facility] [place] [facility] [address] [id number] [place] [address] 06 Jan, 2012 [facility] [place] [facility] [address] [id number] [place] [address] 6268 04 Jan, 2012 [facility] [place] [facility] [address] [id number] [place] [address] 04 Jan, 2012 [facility] [address] [id number] [place] [address]- 9311 04 Jan, 2012 [facility] [place] [facility] [address] [id number] [place] [address] Jan, [facility] [address] [id number] [place] [address] 26 Jan, 2012 [facility] [place] [facility] [address] [id number] [place] [address] 26 Jan, 2012 [facility] [place] [facility] [address] [id number] [place] [address] 19 Jan, 2012 [facility] [address] [id number] [place] [address] 19 Jan, 2012 [facility] [place] [facility] [address] [id number] [place] [address] 15 Jan, 2012 [facility] [address] [id number] [place] [address]- 6666 15 Jan, 2012 [facility] [place] [facility] [address] [id number] [place] [address]- [address] 14 Jan, 2012 [facility] [place] [facility] [address] [id number] [place] [address]- 56[address] 14 Jan, 2012 [facility] [place] [facility] [address] [id number] [place] [address]- 0760 14 Jan, 2012 [facility] [place] [facility] [address] [id number] [place] [address]- 4[address] 14 Jan, 2012 [facility] [place] [facility] [address] [id number] [place] [address] 279[address] Dec, [facility] [place] [facility] [address] [id number] [place] [address] Dec, [facility] [place] [facility] [address] [id number] [place] [address] Nov, [facility] [place] [facility] [address] [id number] [place] [address] 16 Dec, 2011 [facility] [place] [facility] [address] [id number] [place] [address] 295[address] 13 Nov, 2011 [facility] [place] [facility] [address] [id number] [place] [address] Oct, [facility] [place] [facility] [address] [id number] [place] [address] Oct, [facility] [place] [facility] [address] [id number] [place] [address] Oct, [facility] [place] [facility] [address] [id number] [place] [address] Sep, [facility] [place] [facility] [address] [id number] [place] [address]- [address] Sep, [facility] [place] [facility] [address] [id number], [place] [address] Aug, [facility] [place] [facility] [address] [id number] [place] [address] Aug, [facility] [place] [facility] [address] [id number], [place] [address] Aug, [facility] [place] [facility] [address] [id number] [place] [address] Aug, [facility] [place] [facility] [address] [id number], [place] [address] June, [facility] [place] [facility] [address] [id number], [place] [address] June, [facility] [place] [facility] [address] [id number], [place] [address] May, [facility] [address] [id number] [place] [address] Apr, [facility] [place] [facility] [address] [id number] [place] [address] Apr, [facility] [address] [id number] [place] [address] Apr, [facility] [address] [id number] [place] [address] Apr, [facility] [address] [id number] [place] [address] Apr, [facility] [place] [facility] [address] [id number] [place] Apr, [facility] [address] [id number] [place] [address] Mar, [facility] [address] [id number] [place] [address] Mar, [facility] [address] [id number] [place] [address] Mar, [facility] [address] [facility] [id number] [place] [address] Jan, [facility] [address] [id number] [place] [address] Jan, [facility] [place] [facility] [address] [id number] [place] [address] Jan, [facility] [place] [facility] [address] [id number] [place] [address] Jan, [facility] [place] [facility] [address] [id number] [place] [address] Jan, [facility] [place] [facility] [address] [facility] [id number] [place] [address] Jan, [facility] [place] [facility] [address] [id number] [place] [address] Jan, [facility] [place] [facility] [address] [id number] [place] [address] Dec, [facility] [place] [facility] [address] [id number] [place] [address] Dec, [facility] [place] [facility] [address] [id number] [place] [address] Nov, [facility] [place] [facility] [address] [id number] [place] [address] Nov, [facility] [place] [facility] [address] [id number] [place] [address] Nov, [facility] [place] [facility] [address] [id number] [place] [address] Nov, [facility] [place] [facility] [address] [id number] [place] [address] Oct, [facility] [place] [facility] [address] [id number] [place] [address] Sep, [facility] [place] [facility] [address] [id number] [place] [address] Mar, [facility] [place] [facility] [address] [id number] [place] [address] Jan, [facility] [place] [facility] [address] [id number] [place] [address] Dec, [facility] [place] [facility] [address] [id number] [place] [address] Dec, [facility] [place] [facility] [address] [id number] [place] [address] Dec, [facility] [place] [facility] [address] [id number] [place] [address] Dec, [facility] [place] [facility] [address] [id number] [place] [address] 26 Nov, 2009 [facility] [place] [facility] [address] [id number] [place] [address] 15 Nov, 2009 [facility] [place] [facility] [address] [id number], [place] [address] 14 Nov, 2009 [facility] [place] [facility] [address] [facility] [id number] [place] [address] 14 Nov, 2009 [facility] [place] [facility] [address] [id number] [address] 13 Oct, 2009 [facility] [place] [facility] [address] [id number] [place] [address] 17 Jul, 2009 [facility] [place] [facility] [address] [id number], [place] [address] 17 Jun, 2009 [facility] [place] [facility] [address] [id number], [place] [address] June, [facility] [place] [facility] [address] [id number], [place] [address] 17 Apr, 2009 [facility] [address] [id number], [place] [address] Mar, [facility] [place] [facility] [address] [id number], [place] [address] 24 Jan, 2009 [facility] [place] [facility] [address] [id number], [place] [address] Jan, [facility] [place] [facility] [address] [id number], [place] [address] 27 Dec, 2008 [facility] [place] [facility] [address] [id number], [place] [address] 25 Dec, 2008 [facility] [place] [facility] [address] [facility] [id number], [place] [address] 13 Dec, 2008 [facility] [place] [facility] [address] [facility] [id number], [place] [address] 13 Dec, 2008 [facility] [place] [facility] [address] [facility] [id number] [place] [address] Nov, [facility] [address] [facility] [id number], [place] [address] Jul, [facility] [address] [facility] [id number] [place] [address] June, IMMUNIZATIONS No Known Immunizations SOCIAL HISTORY Never Assessed REASON FOR VISIT [facility] Activity Details Follow Up After stress test Reason: VITAL SIGNS Height 69 in 2017-02-18 Weight 316.0 lbs 2017-02-18 Temperature 97.7 degrees Fahrenheit 2017-02-18 Heart Rate 60 bpm 2017-02-18 Respiratory Rate 18 2017-02-18 BMI 46.66 kg/m2 2017-02-18 Blood pressure systolic 142 mmHg 2017-02-18 Blood pressure diastolic 90 mmHg 2017-02-18 MEDICATIONS Medication Instructions Dosage Frequency Start Date End Date Duration Status Omeprazole 20 mg Orally 2 times a day 1 capsule 12h 90 days Active Duloxetine HCl 60 MG Orally Once a day 1 capsule 24h 14 Dec, 2015 90 day(s) Active Oxybutynin Chloride 5 mg Orally Once a day 1 tablet at bedtime 24h Not-Taking Metoprolol Tartrate 25 MG Orally Twice a day 1 tablet 12h Active Allopurinol 100 mg Orally Once a day 1 tablet 24h 90 days Active Vitamin D-3 1000 UNIT Orally Once a day 5 capsule 24h Not-Taking Clobetasol Propionate 0.05 % Externally Twice a day 1 application to affected area 12h Sep, 07 days Active Diclofenac Sodium 75 MG TAKE 1 TABLET BY MOUTH TWICE DAILY - NEED APPOINTMENT FOR REFILLS 30 Active Diclofenac Sodium 75 MG TAKE 1 TABLET BY MOUTH TWICE DAILY NEED APPOINTMENT FOR REFILLS 30 Not-Taking Endocet 10-325 MG Orally every 4-6 hours 1 tablet as needed Dec, Active Fluticasone Propionate 50 MCG/ACT Nasally Once a day 1 spray in each nostril 24h 30 Active Viagra 25 MG Orally 0.5-4 hours before intercourse, up to once per day 1 tablet Sep, Active Multivitamin BID May, Active Clonazepam 1 MG Orally Once a day as needed for anxiety 1 tablet June, 28 days Active Flomax 0.4 MG Orally Once a day 1 capsule 30 minutes after the same meal each day 24h 90 days Active Trazodone HCl 50 MG Orally Once a day 1 tablet at bedtime 24h Active Tizanidine HCl 4 MG Orally 3-4 times daily 1 tablet as needed Apr, Active Garlic 1,000 mg 3 Capsule 2 times per day Dec, Active Naproxen 500 MG Orally every 12 hrs 1 tablet as needed 12h Not- Taking RESULTS No Results PROCEDURES Procedure Date Ordered Result Body Site JOINT INJECTION-LARGE JOINT 2017-02-18 N/A DRAIN/INJECT, JOINT/BURSA Feb 18, 2017 [facility] VISIT ESTABLISHED PATIENT Feb 18, 2017 INSTRUCTIONS MEDICATIONS ADMINISTERED No Known Medications MEDICAL (GENERAL) HISTORY Type Description Date Medical History hypertension Medical History sleep apnea-did not tolerate CPAP Medical History oxygen dependent at [facility] Medical History colonic polyps [...]
--- OUTSIDE RECORDS SUMMARY | 2018-02-26 19:26 | XMS REPORT ---
Author Author CHRIS STEVENSON [facility] Address [address] [place] [address] Care Team Providers Care Test Preparation Tutor Name Role Phone GRAHAMELLIOTT HANNAHANY Unavailable PROBLEMS Type Condition ICD9-CM Code NKD90-YK Code Onset Dates Condition Status SNOMED Code Problem Pulmonary asbestosis J61 Active 77772341 Problem Left ventricular diastolic dysfunction I51.9 Active 751251921 Problem Chronic gout, unspecified cause, unspecified site M1A.[id number] Active 43494666 Problem Renal cyst, left N28.1 Active 29728643 Problem History of weight loss surgery Z98.84 Active 049186896 Problem Nocturnal hypoxia G47.34 Active 853595341 Problem Obstructive sleep apnea syndrome G47.33 Active 56295392 Problem History of diverticulitis Z87.19 Active 523624132294114 Problem Allergic rhinitis, unspecified allergic rhinitis type J30.9 Active 90908430 Problem Erectile dysfunction due to diseases classified elsewhere N52.1 Active 687577978 Problem Acute right-sided low back pain with right-sided sciatica M54.41 Active 285703015 Problem Psoriasis L40.9 Active 3256677 Problem Essential hypertension I10 Active 21766917 Problem Nephrolithiasis N20.0 Active 16044777 Problem Chronic prescription opiate use Z79.899 Active 593089679 Problem 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 Active 91794747 Problem Benign prostatic hyperplasia, presence of lower urinary tract symptoms unspecified, unspecified morphology N40.0 Active 942793485 Problem Moderate episode of recurrent major depressive disorder F33.1 Active 157030726 Problem Age-related osteoporosis without current pathological fracture M81.0 Active 32166872 Problem Low back pain M54.5 Active 425926762 Problem Anxiety F41.9 Active 43511409 Problem Urge incontinence N39.41 Active 883185815 Problem Hyperlipidemia, unspecified E78.5 Active 73760459 Problem Esophageal stricture K22.2 Active 12923355 Problem Cervicalgia M54.2 Active 2562095105794 Problem Primary insomnia F51.01 Active 486193871 ALLERGIES No Information ENCOUNTERS Encounter Location Date Diagnosis [facility] [address] [address] June, Anxiety F41.9 [facility] [address] [address] June, [facility] [address] [address]- [address] June, Low back pain M54.5 ; Chronic prescription opiate use Z79.899 ; Candidal intertrigo B37.2 ; Urge incontinence N39.41 ; Essential hypertension I10 ; Moderate episode of recurrent major depressive disorder F33.1 ; Age-related osteoporosis without current pathological fracture M81.0 and BMI 45.0-49.9, adult Z68.42 [facility] [address] [address] June, [facility] [address] 09[address]- 9395 May, Anxiety F41.9 [place] [address] 44258- 7984 May, [facility] [address] 82370- 6616 May, [facility] [address] 49[address]- 7310 Apr, Anxiety F41.9 [facility] [address] 92527- 4711 Apr, [facility] [address] [address]27- 4612 15 Apr, 2017 Low back pain M54.5 [facility] [address] 72524- 5921 02 Apr, 2017 [facility] [address] 00491- 5270 Apr, [facility] [address] [place] [id number] [place] [address] 06097- 8516 Apr, Anxiety F41.9 [facility] [address] [place] [id number] [place] [address] 08154- 8806 Apr, Right groin pain R10.31 [place] [address] 13471- 2302 Mar, [place] [address] [place] [id number] [place] [address] 09489- 8928 Mar, [place] [address] 65341- 0858 Mar, Anxiety F41.9 [place] [address] [place] [id number] [place] [address] 58759- 1312 Mar, Low back pain M54.5 [place] [address] [place] [id number] [place] [address] 12912- 8933 Mar, Right groin pain R10.31 ; Low back pain M54.5 and BMI 45.0- 49.9, adult Z68.42 [place] [address] [place] [id number] [place] [address] 56266- 0579 Mar, [place] [address] [place] [id number] [place] [address] 47292- 8718 Mar, [place] [address] [place] [id number] [place] [address] 39036- 2370 Mar, [facility] [address] [place] [id number] [place] [address] 51752 -6139 Mar, [facility] [address] [place] [id number] [place] [address] 35559 -8489 Mar, Cough R05 ; Pneumonia of right lower lobe due to infectious organism J18.1 and Abnormal chest x-ray R93.8 [place] [address] [place] [address]- 4884 Mar, [facility] [address] [id number] [place] [address] 74565- 2706 Mar, [facility] [address] [place] [id number] [place] [address] 15298- 3130 Jan, Anxiety F41.9 [facility] [address] 47313- 9070 Jan, [facility] [address] [place] [id number] [place] [address] 80575- 2763 Jan, Moderate episode of recurrent major depressive disorder F33.1 [facility] [address] [place] [id number] [place] [address] 78887- 2292 Jan, Subacromial bursitis of right shoulder joint M75.51 ; Shortness of breath on exertion R06.02 and BMI 45.0-49.9, adult Z68.42 [facility] [address] [place] [id number] [place] [address] 62366- 2472 Dec, Anxiety F41.9 [facility] [address] [place] [id number] [place] [address] 16759- 0697 Dec, [facility] [address] [place] [address] [id number] [place] [address] 51670- 8679 Dec, Low back pain M54.5 [facility] [address] [place] [id number] [place] [address] 99301- 4612 Oct, Low back pain M54.5 [facility] [address] [place] [address] [id number] [place] [address] 52537- 8973 Sep, [facility] [address] [id number] [place] [address] 37469- 8043 Sep, Erectile dysfunction due to diseases classified elsewhere N52.1 [facility] [address] [place] [id number] [place] [address] 52102- 6729 Sep, Erectile dysfunction due to diseases classified elsewhere N52.1 [facility] [id number] [place] [id number] [place] [address] 93188- 9751 Sep, [facility] [address] 30622- 9690 Sep, Erectile dysfunction due to diseases classified elsewhere N52.1 [facility] [address] 32245- 9640 Sep, Low back pain M54.5 and Anxiety F41.9 [facility] [address] 52570 -1042 Aug, Acute allergic rhinitis J30.9 [facility] [address] 59078- 4544 Aug, [facility] [address] 62165- 7709 Aug, Anxiety F41.9 [facility] [address] 67321- 1166 Jul, Low back pain M54.5 ; Chronic prescription opiate use Z79.899 and Essential hypertension I10 [facility] [address] 67552- 1767 Jul, Anxiety F41.9 and Low back pain M54.5 [facility] [address] [place] [id number] [place] [address] 61128- 5966 June, [facility] [address] [place] [id number] [place] [address] 05126- 3680 June, Anxiety F41.9 [facility] [address] [place] [address] [id number] [place] [address] 26508- 8572 May, Low back pain M54.5 [facility] [address] [place] [address] [id number] [place] [address] 03999- 1438 May, [facility] [address] [place] [id number] [place] [address] 73161- 0622 May, Anxiety F41.9 [place] [address] [place] [id number] [place] [address] 59668- 3927 Apr, [place] [address] 98947- 4579 Apr, Low back pain M54.5 [place] [address] 82466- 9760 Apr, Moderate episode of recurrent major depressive disorder F33.1 [place] [address] 10186- 0847 Apr, Anxiety F41.9 [place] [address] 40163- 7570 Apr, Low back pain M54.5 [place] [address] 24131- 3185 15 Apr, 2016 Elevated alkaline phosphatase level R74.8 [place] [address] [place] [id number] [place] [address] 61246- 9201 10 Apr, 2016 Alkaline phosphatase elevation R74.8 [place] [address] 49838- 7292 06 Apr, 2016 Anxiety F41.9 [place] [address] [place] [id number] [place] [address] 09723- 4414 Apr, Low back pain M54.5 [place] [address] [place] [id number] [place] [address] 31473- 6042 Apr, History of weight loss surgery Z98.84 ; Encounter for hepatitis C screening test for low risk patient Z11.59 ; History of herpes genitalis Z86.19 ; Essential hypertension I10 ; Hyperlipidemia, unspecified E78.5 ; Exposure to STD Z20.2 and Benign prostatic hyperplasia, presence of lower urinary tract symptoms unspecified, unspecified morphology N40.0 [place] [address] [place] [id number] [place] [address] 13148- 9646 Apr, [place] [id number] [address]- 1306 Mar, [facility] [id number] [place] [address] 83020- 5673 Mar, [facility] [id number] [address]- 1030 Mar, [facility] [address] [place] [address] 14850- 5771 Mar, Acute right-sided low back pain with right-sided sciatica M54.41 [place] [id number] [place] [address] 28084- 8005 Mar, Low back pain M54.5 [facility] [id number] [place] [address] 32182 -3685 13 Mar, 2016 Muscle strain of chest wall, initial encounter S29.011A ; Muscle strain of right thigh, initial encounter S76.911A and Acute non- recurrent maxillary sinusitis J01.00 [facility] [address] [place] [address] 34458- 5753 03 Mar, 2016 Benign prostatic hyperplasia, presence of lower urinary tract symptoms unspecified, unspecified morphology N40.0 [place] [address] [address]- 6796 23 Jan, 2016 Low back pain M54.5 [facility] [address] [place] [address] 67340- 2311 13 Jan, 2016 Low back pain M54.5 ; Essential hypertension I10 ; Hyperlipidemia, unspecified E78.5 ; Anxiety F41.9 ; Moderate episode of recurrent major depressive disorder F33.1 ; Primary insomnia F51.01 ; Exposure to STD Z20.2 ; Encounter for hepatitis C screening test for low risk patient Z11.59 and History of herpes genitalis Z86.19 [facility] [address] [address]- 6807 17 Jan, 2016 [facility] [address] [place] [id number] [place] [address] 69225- 6281 Nov, [facility] [address] [place] [id number] [place] [address] 48579- 4707 Nov, Anxiety F41.9 ; Cervicalgia M54.2 ; Moderate episode of recurrent major depressive disorder F33.1 and Encounter for immunization Z23 [facility] [address] [place] [id number] [place] [address] 72646- 0089 Oct, [facility] [address] 49755- 2383 Oct, [facility] [address] 56123- 8023 16 Nov, 2015 [facility] [address] 20990- 5059 Oct, [facility] [address] [place] [id number] [place] [address] 12975- 8458 Sep, [facility] [address] [place] [id number] [place] [address] 62781- 3450 Aug, Low back pain M54.5 ; Anxiety F41.9 ; Primary insomnia F51.01 and Chronic prescription opiate use Z79.899 [facility] [address] [place] [id number] [place] [address] 24203- 5883 Jul, [facility] [address] [place] [id number] [place] [address] 06481- 3820 Jul, [facility] [address] [place] [id number] [place] [address] 17507- 1074 Jul, [facility] [address] [place] [id number] [place] [address] 31901- 1356 Jul, [facility] [address] [place] [id number] [place] [address] 28235- 0466 Jul, [facility] [address] [place] [id number] [place] [address] 97044- 9023 June, [facility] [address], [place] [address]- 3564 June, [facility] [address] [place] [id number] [place] [address] 49991- 3052 June, [facility] [address] [place] [id number] [place] [address] 68785- 3821 June, [facility] [address] [place] [id number] [place] [address] 67588- 6102 May, Preoperative cardiovascular examination Z01.810 [facility] [address] [place] [id number] [place] [address] 58449- 2880 May, [facility] [address] [place] [id number] [place] [address] 91575- 0726 Apr, [facility] [address] [place] [id number] [place] [address] 99851- 2432 Apr, Osteoarthritis of right knee M17.9 [facility] [address] [place] [id number] [place] [address] 95157- 5509 30 May, 2015 [facility] [address] [place] [id number] [place] [address] 29344- 9908 16 May, 2015 [facility] [address] [place] [id number] [place] [address] 46171- 7189 Apr, [facility] [address] [place] [id number] [place] [address] 39899- 4486 Apr, [facility] [address] [place] [id number] [place] [address] 66600- 1780 08 May, 2015 History of excessive cerumen Z78.9 ; Obstructive sleep apnea syndrome G47.33 ; History of diverticulitis Z87.19 and Nephrolithiasis N20.0 [facility] [address], [place] [address]- 8746 Apr, [facility] [address] [place] [address] 78070 -9071 Apr, Abdominal pain R10.9 [facility] [address] [place] [id number] [place] [address] 07780- 4195 10 Apr, 2015 [facility] [address] 31949- 6435 04 Apr, 2015 Osteoarthritis of right knee M17.9 [facility] [address] 27558- 0310 Mar, [facility] [address] 69719- 4936 Mar, [facility] [address] 22931- 6658 Mar, [place] [address] 66153- 3257 Mar, [facility] [address] 32801 -4836 Mar, Pyelonephritis N12 ; Left-sided thoracic back pain M54.6 ; Hematuria, unspecified R31.9 and Kidney stone N20.0 [place] [address] 32485- 4583 Mar, History of weight loss surgery Z98.84 [place] [address] [place] [id number] [place] [address] 57393- 7719 Mar, History of weight loss surgery Z98.84 and Hyperlipidemia, unspecified E78.5 [place] [address] [place] [id number] [place] [address] 23289- 5048 Mar, Low back pain M54.5 ; Chronic prescription opiate use Z79.899 ; Hyperlipidemia, unspecified E78.5 ; Spasm of back muscles M62.830 and History of weight loss surgery Z98.84 [facility] [address] [place] [id number] [place] [address] 03420- 8201 Jan, [place] [address] 68330- 9388 Jan, [facility] [id number], [place] [address]- 3100 Jan, [facility] [id number] 0616 Dec, [facility] [id number] 2358 Dec, [facility] [address] [place] [id number] [place] [address] 218739- 6917 Dec, [facility] [address] [place] [address] 630013- 3555 Nov, [facility] [address] [place] [address] 98791- 6332 Nov, Obstructive sleep apnea syndrome G47.33 and Pharyngoesophageal dysphagia R13.14 [facility] [address] [place] [id number] [place] [address] 19544- 2382 Nov, [facility] [address] [place] [address] 88007- 3993 Nov, [facility] [id number] [place] [address] 08614- 9989 Nov, [facility] [id number] [id number] 30 Oct, 2014 Dental examination V72.2 [facility] [id number], [place] [address]- 3867 Oct, [facility] [id number], [place] [address]- 6938 Oct, [facility] [address] [place] [id number] [place] [address] 86085- 8499 23 Oct, 2014 [facility] [address]- 1291 17 Oct, 2014 [facility] [address] [place] [address] 26168- 6961 Oct, BPH (benign prostatic hyperplasia) 600.00 and Urinary frequency 788.41 [facility] [address] [place] [id number] [place] [address] 17852- 7278 Oct, [facility] [address] [place] [address] [id number] [place] [address] 02336- 8965 Oct, [facility] [address] [place] [id number] [place] [address] 44459- 8417 Oct, [facility] [address] [id number] [place] [address] 54035- 5059 Sep, Cerumen impaction 380.4 ; Cerumen debris on tympanic membrane 380.4 ; Psoriasis 696.1 and MICKY (secretory otitis media) 381.4 [facility] [id number] [place] [address] [id number] Sep, Dental examination V72.2 [facility] [address] [place] [id number] [place] [address] 41861- 5431 Sep, Fatigue 780.79 ; Irritable bowel syndrome 564.1 ; Overweight 278.02 ; Poor sleep V69.4 ; Shaking spells 781.0 and Broken tooth 873.63 [facility] [address] [place] [address] 57213- 4059 Sep, [facility] [address] [place] [address] 71432- 0673 Sep, [facility] [address] [id number] [place] [address] 46986- 7707 Aug, [facility] [address] [place] [address] 67378- 5435 Jul, [facility] [address] [place] [id number] [place] [address] 65906- 7127 Jul, [facility] [address] [place] [address] 89413- 3326 Jul, [facility] [address] [place] [id number] [place] [address]- 3914 Jul, [facility] [address] [id number] [place] [address]- 4641 June, Arthritis of knee, right 716.96 [facility] [address] [id number] [place] [address]- 1041 June, [facility] [address] [id number] [place] [address]- 4494 June, Elevated blood pressure reading without diagnosis of hypertension 796.2 [facility] [address] [id number] [place] [address]- 6397 June, [facility] [address] [id number] [place] [address]- 9909 June, [facility] [address] [id number] [place] [address]- 9793 June, [facility] [address] [id number] [place] [address]- 5341 June, [facility] [address] [id number] [place] [address]- 5151 May, [facility] [address] [id number] [place] [address]- 1101 May, [facility] [address] [id number] [place] [address]- 1058 Apr, [facility] [address] [id number] [place] [address]- 6189 Apr, [facility] [address] [id number] [place] [address]- 5265 Apr, [facility] [address] [id number] [place] [address]- 1006 Apr, [facility] [address] [id number] [place] [address]- 1707 Apr, [facility] [address] [id number] [place] [address]- 6749 Apr, 2014 [facility] [place] [facility] [address] [id number] [place] [address]- 1511 Apr, 2014 [facility] [place] [facility] [address] [id number] [place] [address]- 4974 Apr, 2014 [facility] [place] [facility] [address] [id number] [place] [address]- 5249 Apr, 2014 [facility] [place] [facility] [address] [id number] [place] [address]- 9217 Apr, 2014 [facility] [place] [facility] [address] [id number] [place] [address]- 2463 Apr, 2014 [facility] [place] [facility] [address] [facility] [id number] [place] [address]- 1848 Apr, 2014 [facility] [place] [facility] [address] [facility] [id number] [place] [address] Apr, 2014 [facility] [place] [facility] [address] [id number] [place] [address] Apr, 2014 [facility] [place] [facility] [address] [facility] [id number] [place] [address] Apr, 2014 [facility] [place] [facility] [address] [facility] [id number] [place] [address] Apr, 2014 [facility] [place] [facility] [address] [facility] [id number] [address] Apr, 2014 [facility] [place] [facility] [address] [facility] [id number] [place] [address] Apr, 2014 [facility] [place] [facility] [address] [facility] [id number] [place] [address] Apr, 2014 [facility] [place] [facility] [address] [facility] [id number] [place] [address] Apr, 2014 [facility] [place] [facility] [address] [facility] [id number] [place] [address] Apr, 2014 [facility] [place] [facility] [address] [id number] [place] [address] Apr, 2014 [facility] [place] [facility] [address] [id number] [place] [address] Apr, 2014 [facility] [place] [facility] [address] [facility] [id number] [place] [address] Apr, 2014 [facility] [place] [facility] [address] [id number] [place] [address] Apr, 2014 [facility] [place] [facility] [address] [id number] [place] [address] Apr, 2014 [facility] [place] [facility] [address] [facility] [id number] [place] [address]- [address] Apr, 2014 [facility] [place] [facility] [address] [id number] [place] [address] Apr, 2014 [facility] [place] [facility] [address] [facility] [id number] [place] [address] Apr, 2014 [facility] [place] [facility] [address] [facility] [id number] [place] [address] Apr, 2014 [facility] [place] [facility] [address] [facility] [id number] [place] [address] Apr, 2014 [facility] [place] [facility] [address] [facility] [id number] [place] [address] 25[address] Apr, 2014 [facility] [place] [facility] [address] [facility] [id number] [place] [address]- 254 Apr, 2014 [facility] [place] [facility] [address] [facility] [id number] [place] [address]- [address] Mar, [facility] [place] [facility] [address] [facility] [id number] [place] [address] Mar, [facility] [place] [facility] [address] [facility] [id number] [place] [address] Mar, [facility] [place] [facility] [address] [id number] [place] [address] Mar, [facility] [place] [facility] [address] [id number] [place] [address] Mar, [facility] [place] [facility] [address] [id number] [place] [address] 6317 Mar, [facility] [place] [facility] [address] [id number] [place] [address]- 4833 Mar, [facility] [place] [facility] [address] [id number] [place] [address]- 7065 Mar, [facility] [place] [facility] [address] [id number] [place] [address]- 2553 Mar, [facility] [place] [facility] [address] [id number] [place] [address] 2115 Mar, [facility] [place] [facility] [address] [id number] [place] [address]- 0237 Jan, [facility] [place] [facility] [address] [id number] [place] [address]- 7486 Jan, [facility] [place] [facility] [address] [id number] [place] [address]- 4513 Jan, [facility] [place] [facility] [address] [id number], [place] [address] Jan, [facility] [place] [facility] [address] [id number], [place] [address]- 66[address] Jan, [facility] [place] [facility] [address] [id number] [place] [address]- 2797 Jan, [facility] [place] [facility] [address] [id number] [place] [address]- 1732 Jan, [facility] [place] [facility] [address] [id number] [place] [address]- 9875 Jan, [facility] [place] [facility] [address] [id number] [place] [address]- 8110 05 Jan, 2014 [facility] [place] [facility] [address] [id number] [place] [address]- 3401 05 Jan, 2014 [facility] [place] [facility] [address] [id number] [place] [address]- 1981 Jan, [facility] [place] [facility] [address] [id number] [place] [address]- 5467 Jan, [facility] [place] [facility] [address] [id number] [place] [address]- 5477 Dec, [facility] [place] [facility] [address] [id number] [place] [address]- 4239 Dec, [facility] [place] [facility] [address] [id number] [place] [address]- 6878 Dec, [facility] [place] [facility] [address] [id number] [place] [address]- 5943 Dec, [facility] [place] [facility] [address] [id number] [place] [address]- 9146 Dec, [facility] [place] [facility] [address] [id number] [place] [address]- 7611 Dec, [facility] [place] [facility] [address] [facility] [id number] [place] [address]- 2699 Dec, [facility] [place] [facility] [address] [id number] [place] [address]- 9190 Dec, [facility] [place] [facility] [address] [id number] [place] [address]- 5904 Dec, [facility] [place] [facility] [address] [id number] [place] [address]- 1725 Dec, [facility] [place] [facility] [address] [id number] [place] [address]- 8993 Nov, [facility] [place] [facility] [address] [id number] [place] [address]- 9462 Nov, [facility] [place] [facility] [address] [id number] [place] [address]- 8812 Nov, 2013 [facility] [place] [facility] [address] [id number] [place] [address]- 0347 Nov, [facility] [place] [facility] [address] [id number] [place] [address]- 5597 Nov, [facility] [place] [facility] [address] [id number] [place] [address]- 6340 Nov, [facility] [place] [facility] [address] [id number] [place] [address]- 2708 Nov, [facility] [place] [facility] [address] [id number] [place] [address]- 6180 Nov, [facility] [place] [facility] [address] [id number] [place] [address]- 8649 Nov, [facility] [place] [facility] [address] [id number] [place] [address]- 2985 Nov, [facility] [place] [facility] [address] [id number] [place] [address]- 3462 Nov, [facility] [place] [facility] [address] [id number] [place] [address]- 8044 17 Nov, 2013 [facility] [place] [facility] [address] [id number] [place] [address]- 2270 14 Nov, 2013 [facility] [place] [facility] [address] [id number] [place] [address]- 4689 14 Nov, 2013 [facility] [place] [facility] [address] [id number] [place] [address]- 3390 10 Nov, 2013 [facility] [place] [facility] [address] [id number] [place] [address]- 6535 10 Nov, 2013 [facility] [place] [facility] [address] [id number] [place] [address]- 7186 08 Nov, 2013 [facility] [place] [facility] [address] [id number], [place] [address]- 9208 Nov, [facility] [place] [facility] [address] [id number] [place] [address]- 9011 Nov, [facility] [place] [facility] [address] [id number] [place] [address]- 6636 Nov, [facility] [place] [facility] [address] [id number] [place] [address]- 2846 Oct, [facility] [place] [facility] [address] [id number] [place] [address]- 8927 Oct, [facility] [place] [facility] [address] [id number] [place] [address]- 9180 Oct, [facility] [place] [facility] [address] [id number] [place] [address]- 8863 Oct, [facility] [place] [facility] [address] [id number] [place] [address]- 0946 Oct, [facility] [place] [facility] [address] [id number] [place] [address]- 5280 Oct, [facility] [place] [facility] [address] [id number] [place] [address]- 5047 Oct, [facility] [place] [facility] [address] [id number] [place] [address]- 7979 Oct, [facility] [place] [facility] [address] [id number] [place] [address]- 1283 Oct, [facility] [place] [facility] [address] [id number] [place] [address]- 1225 Oct, [facility] [place] [facility] [address] [id number] [place] [address]- 2562 Sep, [facility] [place] [facility] [address] [id number] [place] [address]- 2758 Sep, [facility] [place] [facility] [address] [id number] [place] [address]- 7971 Sep, [facility] [place] [facility] [address] [id number] [place] [address]- 6848 Sep, [facility] [place] [facility] [address] [id number] [place] [address]- 2069 Sep, [facility] [place] [facility] [address] [id number] [place] [address]- 6148 Sep, [facility] [place] [facility] [address] [id number] [place] [address]- 0038 Sep, [facility] [place] [facility] [address] [id number] [place] [address]- 5004 Sep, [facility] [place] [facility] [address] [id number] [place] [address]- 8101 Sep, [facility] [place] [facility] [address] [id number] [place] [address]- 9290 Sep, [facility] [place] [facility] [address] [id number] [place] [address]- 0884 Sep, [facility] [place] [facility] [address] [id number] [place] [address]- 6333 Sep, [facility] [place] [facility] [address] [id number] [place] [address]- 1955 Sep, [facility] [place] [facility] [address] [id number] [place] [address]- 8224 Sep, [facility] [place] [facility] [address] [id number] [place] [address]- 3278 Sep, [facility] [place] [facility] [address] [id number] [place] [address]- 5401 Sep, [facility] [place] [facility] [address] [id number] [place] [address]- 0897 Sep, [facility] [place] [facility] [address] [id number] [place] [address]- 9736 Sep, [facility] [place] [facility] [address] [id number] [place] [address]- 5609 Sep, [facility] [place] [facility] [address] [id number] [place] [address]- 7526 Sep, [facility] [place] [facility] [address] [id number] [place] [address]- 8462 Sep, [facility] [place] [facility] [address] [id number] [place] [address]- 2442 Sep, [facility] [place] [facility] [address] [id number] [place] [address]- 8754 Sep, [facility] [place] [facility] [address] [id number] [place] [address]- 2344 Sep, [facility] [place] [facility] [address] [id number] [place] [address]- 9398 Sep, [facility] [place] [facility] [address] [id number] [place] [address]- 6941 Aug, [facility] [place] [facility] [address] [id number] [place] [address]- 3620 Aug, [facility] [place] [facility] [address] [id number] [place] [address]- 9287 Aug, [facility] [place] [facility] [address] [id number] [place] [address]- 7382 Aug, [facility] [place] [facility] [address] [id number] [place] [address]- 5180 Aug, [facility] [place] [facility] [address] [id number] [place] [address]- 4919 Aug, [facility] [place] [facility] [address] [id number] [place] [address]- 8188 Aug, [facility] [place] [facility] [address] [id number] [place] [address]- 9899 Aug, [facility] [place] [facility] [address] [id number] [place] [address]- 7851 Aug, [facility] [place] [facility] [address] [id number] [place] [address]- 6187 Aug, [facility] [place] [facility] [address] [id number] [place] [address]- 4492 Aug, [facility] [place] [facility] [address] [id number] [place] [address]- 6220 Aug, [facility] [place] [facility] [address] [id number] [place] [address]- 9464 Aug, [facility] [place] [facility] [address] [id number] [place] [address]- 4538 Jul, [facility] [place] [facility] [address] [id number] [place] [address]- 1609 Jul, [facility] [place] [facility] [address] [id number] [place] [address]- 3890 Jul, [facility] [place] [facility] [address] [id number] [place] [address]- 3776 Jul, [facility] [place] [facility] [address] [id number] [place] [address]- 2159 Jul, [facility] [place] [facility] [address] [id number] [place] [address]- 8950 Jul, [facility] [place] [facility] [address] [id number] [place] [address]- 8223 Jul, [facility] [place] [facility] [address] [id number] [place] [address]- 1376 June, [facility] [place] [facility] [address] [id number] [place] [address]- 9674 June, [facility] [place] [facility] [address] [id number] [place] [address]- 6192 June, [facility] [place] [facility] [address] [id number] [place] [address]- 0212 June, [facility] [place] [facility] [address] [id number] [place] [address]- 8308 May, [facility] [place] [facility] [address] [id number] [place] [address]- 0983 May, [facility] [place] [facility] [address] [id number] [place] [address]- 4033 May, [facility] [place] [facility] [address] [id number] [place] [address]- 5276 May, [facility] [place] [facility] [address] [id number] [place] [address]- 7085 May, [facility] [place] [facility] [address] [id number] [place] [address]- 5001 May, [facility] [place] [facility] [address] [id number] [place] [address]- 3249 May, [facility] [place] [facility] [address] [id number] [place] [address]- 5957 May, [facility] [place] [facility] [address] [id number] [place] [address]- 7247 May, [facility] [place] [facility] [address] [id number] [place] [address]- 7547 May, [facility] [place] [facility] [address] [id number] [place] [address]- 3687 Apr, [facility] [place] [facility] [address] [id number] [place] [address]- 3154 Apr, [facility] [place] [facility] [address] [id number] [place] [address]- 5037 Apr, [facility] [place] [facility] [address] [id number] [place] [address]- 8623 Apr, [facility] [place] [facility] [address] [id number] [place] [address]- 7595 Apr, [facility] [place] [facility] [address] [id number] [place] Apr, [facility] [place] [facility] [address] [id number] [place] [address]- 4914 Apr, [facility] [address] [id number] [place] [address]- 3100 Apr, [facility] [place] [facility] [address] [id number] [place] [address]- 4320 Apr, [facility] [place] [facility] [address] [id number] [place] [address]- 6256 Apr, [facility] [place] [facility] [address] [id number] [place] [address]- 2551 Mar, [facility] [place] [facility] [address] [id number] [place] [address]- 5088 Mar, [facility] [address] [id number] [place] [address]- 7151 Mar, [facility] [address] [id number] [place] [address]- 3007 Mar, [facility] [place] [facility] [address] [id number] [place] [address]- 0615 Mar, [facility] [address] [id number] [place] [address]- 0880 Mar, [facility] [place] [facility] [address] [facility] [id number] [place] [address]- 6722 Jan, [facility] [place] [facility] [address] [id number] [place] [address]- 2846 Jan, [facility] [place] [facility] [address] [id number], [place] [address]- 0044 Jan, [facility] [place] [facility] [address] [id number] [place] [address]- 7822 Jan, [facility] [place] [facility] [address] [id number] [place] [address]- 2037 Jan, [facility] [place] [facility] [address] [id number] [place] [address]- 2169 Jan, [facility] [place] [facility] [address] [id number] [place] [address]- 7212 Jan, [facility] [address] [id number] [place] [address]- 2906 Jan, [facility] [place] [facility] [address] [id number] [place] [address]86 Jan, [facility] [place] [facility] [address] [id number] [place] [address]- 5753 Dec, [facility] [place] [facility] [address] [id number] [place] [address]- 2056 Dec, [facility] [place] [facility] [address] [id number] [place] [address]- 7079 Dec, [facility] [place] [facility] [address] [id number] [place] [address]- 6576 Dec, [facility] [place] [facility] [address] [id number] [place] [address]- 2276 Dec, [facility] [address] [id number] [place] [address]- 1976 Dec, [facility] [place] [facility] [address] [id number] [place] [address]- 0726 Dec, [facility] [place] [facility] [address] [facility] [id number] [place] [address]- 7168 Dec, [facility] [place] [facility] [address] [id number] [place] [address]- 2821 Dec, [facility] [place] [facility] [address] [id number] [place] [address]- 8772 Dec, [facility] [place] [facility] [address] [id number] [place] [address]- 9045 Dec, [facility] [place] [facility] [address] [id number] [place] [address]- 2758 Nov, [facility] [place] [facility] [address] [id number] [place] [address]- 2225 Nov, [facility] [address] [id number] [place] [address]- 8307 Nov, [facility] [place] [facility] [address] [id number] [place] [address]- 2935 Nov, [facility] [place] [facility] [address] [id number] [place] [address]- 3185 Nov, [facility] [place] [facility] [address] [id number] [place] [address]- 4741 Oct, [facility] [place] [facility] [address] [id number] [place] [address]- 5094 Oct, [facility] [place] [facility] [address] [id number] [place] [address]- 0618 Sep, [facility] [place] [facility] [address] [id number] [place] [address]- 9200 Aug, [facility] [place] [facility] [address] [id number] [place] [address]- 3673 Aug, [facility] [place] [facility] [address] [id number] [place] [address]- 4136 Aug, [facility] [place] [facility] [address] [id number], [place] [address]- 3425 Aug, [facility] [place] [facility] [address] [id number] [place] [address]- 0609 Jul, [facility] [place] [facility] [address] [id number], [place] [address]- 8589 Jul, [facility] [place] [facility] [address] [id number] [place] [address]- 7410 June, [facility] [place] [facility] [address] [id number] [place] [address]- 2128 June, [facility] [place] [facility] [address] [id number] [place] [address]- 1777 June, [facility] [place] [facility] [address] [id number] [place] [address]- 7287 08 May, 2012 [facility] [address] [id number] [place] [address]- 1188 04 May, 2012 [facility] [place] [facility] [address] [facility] [id number] [place] [address]- 3705 May, [facility] [address] [facility] [id number] [place] [address]- 4386 18 Apr, 2012 [facility] [place] [facility] [address] [facility] [id number] [place] [address]- 3547 18 Apr, 2012 [facility] [address] [id number] [place] [address]- 1688 15 Apr, 2012 [facility] [place] [facility] [address] [facility] [id number] [place] [address]- 1563 14 Apr, 2012 [facility] [address] [id number] [place] [address]- 4191 12 Apr, 2012 [facility] [place] [facility] [address] [facility] [id number] [place] [address]- 5572 27 Apr, 2012 [facility] [place] [facility] [id number] [place] [address]- 6430 25 Apr, 2012 [facility] [place] [facility] [address] [id number] [place] [address]- 0571 25 Apr, 2012 [facility] [place] [facility] [id number] [place] [address]- 6655 21 Apr, 2012 [facility] [place] [facility] [address] [facility] [id number] [place] [address]- 2586 20 Apr, 2012 [facility] [place] [facility] [address] [facility] [id number] [place] 0911 19 Apr, 2012 [facility] [place] [facility] [address] [facility] [id number] [place] [address]- 8243 07 Apr, 2012 [facility] [place] [facility] [id number] [place] [address]- 1241 07 Apr, 2012 [facility] [address] [id number] [place] [address]- 1822 Mar, [facility] [place] [facility] [address] [id number] [place] [address]- 8983 Mar, [facility] [address] [id number] [place] [address]- 7180 Mar, [facility] [place] [facility] [address] [id number] [place] [address]- 2569 Mar, [facility] [address] [id number] [place] [address] Mar, [facility] [address] [id number] [place] [address] Jan, [facility] [address] [id number] [place] [address] Jan, [facility] [address] [id number] [place] [address] Jan, [facility] [address] [id number] [place] [address] Jan, [facility] [address] [id number] [place] [address] 14 Jan, 2012 [facility] [place] [facility] [address] [id number] [place] [address] Jan, [facility] [place] [facility] [address] [id number] [place] [address] 9970 13 Jan, 2012 [facility] [place] [facility] [address] [id number] [place] [address]10 11 Jan, 2012 [facility] [place] [facility] [address] [id number] [place] [address]- [address]266 06 Jan, 2012 [facility] [place] [facility] [address] [id number] [place] [address]- [address] 06 Jan, 2012 [facility] [place] [facility] [address] [id number] [place] [address]- 2770 04 Jan, 2012 [facility] [place] [facility] [address] [id number] [place] [address]- 7542 04 Jan, 2012 [facility] [place] [facility] [address] [id number] [place] [address]- [address] Jan, [facility] [place] [facility] [address] [id number] [place] [address]60 Jan, [facility] [place] [facility] [address] [id number] [place] [address]- 2498 26 Jan, 2012 [facility] [place] [facility] [address] [id number] [place] [address]- [address] 26 Jan, 2012 [facility] [place] [facility] [address] [id number] [place] [address] Dec, [facility] [place] [facility] [address] [id number] [place] [address]- 6710 19 Jan, 2012 [facility] [place] [facility] [address] [id number] [place] [address] 15 Jan, 2012 [facility] [place] [facility] [address] [id number] [place] [address]- 8031 15 Jan, 2012 [facility] [place] [facility] [address] [facility] [id number] [place] [address]- [address]673 14 Jan, 2012 [facility] [place] [facility] [address] [id number] [place] [address]- [address]396 14 Jan, 2012 [facility] [place] [facility] [address] [id number], [place] [address] 14 Jan, 2012 [facility] [place] [facility] [address] [id number] [place] [address]- 4182 14 Jan, 2012 [facility] [place] [facility] [address] [id number] [place] [address]- [address] 07 Jan, 2012 [facility] [place] [facility] [address] [facility] [id number], [place] [address] 07 Jan, 2012 [facility] [place] [facility] [address] [id number] [place] [address]- [address]365 16 Dec, 2011 [facility] [place] [facility] [address] [id number] [place] [address]- [address]144 16 Dec, 2011 [facility] [place] [facility] [address] [id number] [place] [address]- [address]876 13 Nov, 2011 [facility] [place] [facility] [address] [id number] [place] [address]- 0336 13 Nov, 2011 [facility] [place] [facility] [address] [id number] [place] [address]- 7259 13 Nov, 2011 [facility] [place] [facility] [address] [id number] [place] [address] 8532 Oct, [facility] [place] [facility] [address] [id number] [place] [address]- [address]26 Sep, [facility] [place] [facility] [address] [id number] [place] [address]- [address]179 Sep, [facility] [place] [facility] [address] [id number] [place] [address]- [address]124 Aug, [facility] [place] [facility] [address] [id number] [place] [address]- 5877 Aug, [facility] [place] [facility] [address] [id number] [place] [address]657 Aug, [facility] [place] [facility] [address] [id number] [place] [address]574 Aug, [facility] [place] [facility] [address] [id number] [place] [address] June, [facility] [place] [facility] [address] [id number] [place] [address]- 74[address] June, [facility] [place] [facility] [address] [id number] [place] [address]- [address] May, [facility] [place] [facility] [address] [id number] [place] [address]- 0435 Apr, [facility] [address] [id number] [place] [address] 44[address] Apr, [facility] [place] [facility] [address] [id number] [place] [address]- 0460 Apr, [facility] [place] [facility] [address] [id number] [place] [address]- 2026 Apr, [facility] [place] [facility] [address] [id number] [place] [address]- 0095 Apr, [facility] [place] [facility] [address] [id number] [place] [address]- 9785 Apr, [facility] [place] [facility] [address] [id number] [place] [address]- [address]124 Mar, [facility] [place] [facility] [address] [id number] [place] [address]- 6042 Mar, [facility] [place] [facility] [address] [id number] [place] [address]- 235[address] Mar, [facility] [place] [facility] [address] [id number] [place] [address]- 9885 Jan, [facility] [place] [facility] [address] [id number] [place] [address]- 3812 Jan, [facility] [place] [facility] [address] [id number] [place] [address]- 1996 Jan, [facility] [place] [facility] [address] [id number] [place] [address]- 5267 Jan, [facility] [place] [facility] [address] [id number] [place] [address]- 3977 Jan, [facility] [place] [facility] [address] [id number] [place] [address] Jan, [facility] [place] [facility] [address] [id number] [place] [address]- 1039 Jan, [facility] [place] [facility] [address] [id number] [place] [address]- 4273 Dec, [facility] [place] [facility] [address] [id number] [place] [address]- 8155 Dec, [facility] [place] [facility] [address] [id number] [place] [address]- 3140 Nov, [facility] [place] [facility] [address] [id number] [place] [address]- 8341 Nov, [facility] [place] [facility] [address] [id number] [place] [address]- 4491 Nov, [facility] [place] [facility] [address] [id number] [place] [address], [place] [address]- 8799 Nov, [facility] [place] [facility] [address] [id number] [place] [address]- 7628 Oct, [facility] [place] [facility] [address] [id number] [place] [address]- 3976 Sep, [facility] [place] [facility] [address] [id number] [place] [address]- 1651 Mar, [facility] [place] [facility] [address] [id number] [place] [address]- 6605 Jan, [facility] [place] [facility] [address] [id number] [place] [address]- 0452 Dec, [facility] [place] [facility] [address] [id number] [place] [address]- 7767 Dec, [facility] [place] [facility] [address] [id number] [place] [address]- 1115 Dec, [facility] [place] [facility] [address] [id number] [place] [address]- 9520 Dec, [facility] [place] [facility] [address] [id number] [place] [address]- 0383 Nov, [facility] [place] [facility] [address] [id number] [place] [address] 15 Nov, 2009 [facility] [facility] [address] [id number] [place] [address] 14 Nov, 2009 [facility] [place] [facility] [address] [id number] [place] [address] 14 Nov, 2009 [facility] [place] [facility] [address] [id number] [place] [address] 13 Oct, 2009 [facility] [place] [facility] [address] [id number] [place] [address] 17 Jul, 2009 [facility] [place] [facility] [address] [id number] [place] [address] June, [facility] [place] [facility] [address] [id number] [place] [address] June, [facility] [place] [facility] [address] [id number] [place] [address] 17 Apr, 2009 [facility] [place] [facility] [address] [id number], [place] [address] Mar, [facility] [place] [facility] [address] [id number] [place] [address] 24 Jan, 2009 [facility] [place] [facility] [address] [id number], [place] [address] Jan, [facility] [place] [facility] [address] [id number], [place] [address] 27 Dec, 2008 [facility] [place] [facility] [address] [id number], [place] [address] 25 Dec, 2008 [facility] [place] [facility] [address] [id number] [place] [address] 13 Dec, 2008 [facility] [place] [facility] [address] [id number], [place] [address] 13 Dec, 2008 [facility] [place] [facility] [address] [id number] [place] 30 Nov, 2008 [facility] [place] [facility] [address] [id number] [place] [address] Jul, [facility] [address] [facility] [id number] [place] [address] June, IMMUNIZATIONS No Known Immunizations SOCIAL HISTORY [...]
--- OUTSIDE RECORDS SUMMARY | 2018-02-26 19:27 | XMS REPORT ---
Author Author PARAS NAZARIO [facility] Address [address] [place] [address] Care Team Providers [employer] Director Name Role Phone PARAS NAZARIO Unavailable PROBLEMS Type Condition ICD9-CM Code IQN36-HF Code Onset Dates Condition Status SNOMED Code Problem Pulmonary asbestosis J61 Active 17432169 Problem Left ventricular diastolic dysfunction I51.9 Active 190206567 Problem Chronic gout, unspecified cause, unspecified site M1A.9XX0 Active 89976105 Problem Renal cyst, left N28.1 Active 70712813 Problem History of weight loss surgery Z98.84 Active 291242670 Problem Nocturnal hypoxia G47.34 Active 913107473 Problem Obstructive sleep apnea syndrome G47.33 Active 47347061 Problem History of diverticulitis Z87.19 Active 162504114516271 Problem Allergic rhinitis, unspecified allergic rhinitis type J30.9 Active 20120114 Problem Erectile dysfunction due to diseases classified elsewhere N52.1 Active 529344699 Problem Acute right-sided low back pain with right-sided sciatica M54.41 Active 461829676 Problem Psoriasis L40.9 Active 3214602 Problem Essential hypertension I10 Active 36155880 Problem Nephrolithiasis N20.0 Active 86929174 Problem Chronic prescription opiate use Z79.899 Active 572185080 Problem 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 Active 74678907 Problem Benign prostatic hyperplasia, presence of lower urinary tract symptoms unspecified, unspecified morphology N40.0 Active 271963865 Problem Moderate episode of recurrent major depressive disorder F33.1 Active 149005534 Problem Age-related osteoporosis without current pathological fracture M81.0 Active 97916648 Problem Low back pain M54.5 Active 063033899 Problem Anxiety F41.9 Active 58354808 Problem Urge incontinence N39.41 Active 099419869 Problem Hyperlipidemia, unspecified E78.5 Active 20671509 Problem Esophageal stricture K22.2 Active 20621341 Problem Cervicalgia M54.2 Active 9092900971296 Problem Primary insomnia F51.01 Active 315997059 ALLERGIES No Information ENCOUNTERS Encounter Location Date Diagnosis [facility] [address] [address] Jul, Anxiety F41.9 [facility] [address] [address]- [address] June, Anxiety F41.9 [facility] [address] [address]- [address] June, [facility] [address] [address]- [address] June, Low back pain M54.5 ; Chronic prescription opiate use Z79.899 ; Candidal intertrigo B37.2 ; Urge incontinence N39.41 ; Essential hypertension I10 ; Moderate episode of recurrent major depressive disorder F33.1 ; Age-related osteoporosis without current pathological fracture M81.0 and BMI 45.0-49.9, adult Z68.42 [facility] [id number] [place] [address] 01676- 9693 June, [facility] [address] [address]- [address]6 May, Anxiety F41.9 [facility] [address] [address]- [address] May, [facility] [address] [address]- 25[address] May, [facility] [id number] [place] [address] 33524- 8231 Apr, Anxiety F41.9 [facility] [address] 00[address]- 7717 Apr, [facility] [address] 9[address]- 0990 Apr, Low back pain M54.5 [facility] [id number] [address] 7[address] Apr, [facility] [id number] [place] [address] 00507- 4508 Apr, [facility] [id number] [place] [address] 63558- 1988 Apr, Anxiety F41.9 [facility] [id number] [place] [address] 42107- 5721 Apr, Right groin pain R10.31 [facility] [id number] [place] [address] 33228- 5159 Mar, [facility] [id number] [place] [address] 10201- 7512 Mar, [facility] [id number] [place] [address] 19723- 8963 Mar, Anxiety F41.9 [facility] [id number] [place] [address] 25384- 3621 Mar, Low back pain M54.5 [facility] [id number] [place] [address] 78488- 7809 Mar, Right groin pain R10.31 ; Low back pain M54.5 and BMI 45.0- 49.9, adult Z68.42 [facility] [id number] [place] [address] 87540- 8845 Mar, [facility] [id number] [place] [address] 80126- 3916 Mar, [facility] [id number] [place] [address] 84390- 5289 Mar, [facility] [id number] [place] [address] 38757 -6854 Mar, [facility] [id number] [place] [address] 15799 -6288 Mar, Cough R05 ; Pneumonia of right lower lobe due to infectious organism J18.1 and Abnormal chest x-ray R93.8 [facility] [id number] [place] [address] 85481- 6872 Mar, [facility] [id number] [place] [address] 12030- 2511 Mar, [facility] [address] 0[address]- 0550 Jan, Anxiety F41.9 [facility] [address] 6[address]- 3[address] Jan, [facility] [address] 35156- 0441 Jan, Moderate episode of recurrent major depressive disorder F33.1 [place] [address] [address]- 97[address] Jan, Subacromial bursitis of right shoulder joint M75.51 ; Shortness of breath on exertion R06.02 and BMI 45.0-49.9, adult Z68.42 [facility] [id number] [place] [address] 70229- 0840 Dec, Anxiety F41.9 [facility] [id number] [place] [address] 24646- 6957 Dec, [facility] [id number] [place] [address] 34565- 0565 Dec, Low back pain M54.5 [facility] [id number] [place] [address] 94081- 1765 Oct, Low back pain M54.5 [facility] [id number] [place] [address] 92335- 4340 Sep, [facility] [id number] [place] [address] 75080- 5706 Sep, Erectile dysfunction due to diseases classified elsewhere N52.1 [place] [id number] [address]- [address] Sep, Erectile dysfunction due to diseases classified elsewhere N52.1 [facility] [id number] [place] [address] 96746- 3790 Sep, [facility] [id number] [place] [address] 13511- 9698 Sep, Erectile dysfunction due to diseases classified elsewhere N52.1 [facility] [id number] [place] [address] 03479- 1020 Sep, Low back pain M54.5 and Anxiety F41.[address] [facility] [id number] [place] [address] 18882 -1376 Aug, Acute allergic rhinitis J30.9 [facility] [id number] [place] [address] 21910- 9639 Aug, [facility] [id number] [place] [address] 22849- 0888 Aug, Anxiety F41.9 [facility] [id number] [place] [address] 57080- 4501 Jul, Low back pain M54.5 ; Chronic prescription opiate use Z79.899 and Essential hypertension I10 [facility] [id number] [place] [address] 00152- 3720 Jul, Anxiety F41.9 and Low back pain M54.5 [facility] [id number] [place] [address] 00197- 2651 June, [facility] [id number] [place] [address] 43341- 8736 June, Anxiety F41.9 [facility] [id number] [place] [address] 63323- 4543 May, Low back pain M54.5 [facility] [id number] [place] [address] 14648- 0136 May, [place] [id number] [place] [address] 67485- 7502 May, Anxiety F41.9 [place] [id number] [place] [address] 99446- 7152 Apr, [place] [id number] [place] [address] 89914- 7553 Apr, Low back pain M54.5 [place] [id number] [place] [address] 24080- 4875 Apr, Moderate episode of recurrent major depressive disorder F33.1 [place] [id number] [place] [address] 44313- 5119 Apr, Anxiety F41.9 [place] [id number] [place] [address] 64444- 1779 Apr, Low back pain M54.5 [place] [id number] [place] [address] 53563- 8155 15 Apr, 2016 Elevated alkaline phosphatase level R74.8 [place] [id number] [place] [address] 82813- 7784 10 Apr, 2016 Alkaline phosphatase elevation R74.8 [place] [id number] [place] [address] 71545- 8278 06 Apr, 2016 Anxiety F41.9 [place] [id number] [place] [address] 06063- 9354 Apr, Low back pain M54.5 [place] [id number] [place] [address] 44752- 6352 03 Apr, 2016 History of weight loss surgery Z98.84 ; Encounter for hepatitis C screening test for low risk patient Z11.59 ; History of herpes genitalis Z86.19 ; Essential hypertension I10 ; Hyperlipidemia, unspecified E78.5 ; Exposure to STD Z20.2 and Benign prostatic hyperplasia, presence of lower urinary tract symptoms unspecified, unspecified morphology N40.0 [facility] [address] [address]- 3446 02 Apr, 2016 [facility] [id number] [place] [address] 95678- 1988 Mar, [facility] [id number] [place] [address] 97934- 9975 Mar, [place] [id number] [place] [address] 77331- 8692 Mar, [facility] [id number] [place] [address] 30946- 8424 Mar, Acute right-sided low back pain with right-sided sciatica M54.41 [place] [id number] [place] [address] 36465- 8342 Mar, Low back pain M54.5 [facility] [id number] [place] [address] 83514 -9697 Mar, Muscle strain of chest wall, initial encounter S29.011A ; Muscle strain of right thigh, initial encounter S76.911A and Acute non- recurrent maxillary sinusitis J01.00 [place] [address] [address]- 9781 Mar, Benign prostatic hyperplasia, presence of lower urinary tract symptoms unspecified, unspecified morphology N40.0 [place] [address] [address]- 0203 Jan, Low back pain M54.5 [facility] [id number] [place] [address] 69205- 3065 Jan, Low back pain M54.5 ; Essential hypertension I10 ; Hyperlipidemia, unspecified E78.5 ; Anxiety F41.9 ; Moderate episode of recurrent major depressive disorder F33.1 ; Primary insomnia F51.01 ; Exposure to STD Z20.2 ; Encounter for hepatitis C screening test for low risk patient Z11.59 and History of herpes genitalis Z86.19 [place] [address] [address]- 3707 Dec, [facility] [id number] [place] [address] 96424- 2005 Nov, [facility] [id number] [place] [address] 47690- 2244 Nov, Anxiety F41.9 ; Cervicalgia M54.2 ; Moderate episode of recurrent major depressive disorder F33.1 and Encounter for immunization Z23 [facility] [id number] [place] [address] 13738- 2991 Oct, [facility] [id number] [place] [address] 37228- 4314 22 Nov, 2015 [facility] [id number] [place] [address] 91671- 7980 16 Nov, 2015 [facility] [id number] [place] [address] 97731- 6267 Oct, [facility] [id number] [place] [address] 55969- 6950 Sep, [facility] [id number] [place] [address] 48646- 0277 Aug, Low back pain M54.5 ; Anxiety F41.9 ; Primary insomnia F51.01 and Chronic prescription opiate use Z79.899 [facility] [id number] [place] [address] 04160- 5508 Jul, [facility] [id number] [place] [address] 82091- 1092 Jul, [facility] [id number] [place] [address] 38006- 5090 Jul, [facility] [id number] [address]- 2875 Jul, [facility] [id number] [place] [address] 98734- 9342 Jul, [facility] [id number] [address]- 2275 June, [facility] [id number] [place] [address] 63313- 8626 June, [facility] [address] [address]- 5127 June, [facility] [id number] [place] [address] 41361- 4146 June, [facility] [id number] [place] [address] 24655- 3829 May, Preoperative cardiovascular examination Z01.810 [facility] [id number] [place] [address] 73677- 6990 May, [facility] [id number] [place] [address] 81682- 3882 Apr, [facility] [id number] [place] [address] 17382- 8738 Apr, Osteoarthritis of right knee M17.9 [facility] [id number] [place] [address] 12821- 7309 Apr, [facility] [id number] [place] [address] 32135- 2156 Apr, [facility] [address] [address]- 4808 Apr, [facility] [id number] [address]- 3439 Apr, [facility] [id number] [place] [address] 88210- 4190 Apr, History of excessive cerumen Z78.9 ; Obstructive sleep apnea syndrome G47.33 ; History of diverticulitis Z87.19 and Nephrolithiasis N20.0 [facility] [address] [address]- 6164 Apr, [facility] [id number] [place] [address] 58738 -3216 Apr, Abdominal pain R10.9 [facility] [id number] [place] [address] 89893- 6310 10 Apr, 2015 [facility] [id number] [place] [address] 50082- 9878 Apr, Osteoarthritis of right knee M17.9 [facility] [id number] [place] [address] 00152- 3379 Mar, [place] [address] 46432- 5248 Mar, [facility] [id number] [place] [address] 41142- 3268 Mar, [facility] [id number] [place] [address] 80185- 7178 Mar, [facility] [id number] [place] [address] 01634 -6382 Mar, Pyelonephritis N12 ; Left-sided thoracic back pain M54.6 ; Hematuria, unspecified R31.9 and Kidney stone N20.0 [place] [id number] [place] [address] 16531- 8554 Mar, History of weight loss surgery Z98.84 [facility] [id number] [place] [address] 34225- 5480 Mar, History of weight loss surgery Z98.84 and Hyperlipidemia, unspecified E78.5 [place] [id number] [place] [address] 36223- 5234 Mar, Low back pain M54.5 ; Chronic prescription opiate use Z79.899 ; Hyperlipidemia, unspecified E78.5 ; Spasm of back muscles M62.830 and History of weight loss surgery Z98.84 [place] [id number] [place] [address] 35489- 5108 Jan, [facility] [address], [place] [address]- 0365 Jan, [facility] [id number] [place] [address] 980222- 8651 Jan, [facility] [id number] [address]874 Dec, [facility] [id number] [place] [address] 029262- 9570 Dec, [facility] [id number] [place] [address] 008160- 9728 Dec, [facility] [id number] [place] [address] 72379- 8902 Nov, [facility] [id number] [place] [address] 15818- 1036 Nov, Obstructive sleep apnea syndrome G47.33 and Pharyngoesophageal dysphagia R13.14 [facility] [id number] [address]- 8320 Nov, [facility] [id number] [place] [address] 91293- 2967 Nov, [facility] [id number] [address]- 8423 Nov, [facility] [id number] [id number] 30 Oct, 2014 Dental examination V72.2 [facility] [id number] [address]- 5970 Oct, [facility] [id number] [place] [address] 291402- 1420 Oct, [facility] [id number], [place] [address]- 6282 Oct, [facility] [id number] [place] [address] 92825- 6529 Oct, [facility] [id number] [place] [address] 51394- 6017 Oct, BPH (benign prostatic hyperplasia) 600.00 and Urinary frequency 788.41 [facility] [id number] [place] [address] 05517- 0862 Oct, [facility] [address] 96388- 1214 Oct, [facility] [id number] [place] [address] 41107- 4670 Oct, [facility] [id number] [place] [address] 14891- 0059 Sep, Cerumen impaction 380.4 ; Cerumen debris on tympanic membrane 380.4 ; Psoriasis 696.1 and MICKY (secretory otitis media) 381.4 [facility] [id number] [place] [address] [id number] Sep, Dental examination V72.2 [facility] [id number] [place] [phone] Sep, Fatigue 780.79 ; Irritable bowel syndrome 564.1 ; Overweight 278.02 ; Poor sleep V69.4 ; Shaking spells 781.0 and Broken tooth 873.63 [facility] [id number] [place] [phone] Sep, [facility] [id number] [place] [phone] Sep, [facility] [address] [id number] Aug, [facility] [id number] [place] [phone] Jul, [facility] [id number] [place] [phone]- [phone] Jul, [facility] [address] [id number] [place] [address] Jul, [facility] [address] [id number] [place] [address] Jul, [facility] [address] [id number] [place] [address] June, Arthritis of knee, right 716.96 [facility] [address] [id number] [place] [address] June, [facility] [address] [facility] [id number] [place] [address] June, Elevated blood pressure reading without diagnosis of hypertension 796.2 [facility] [id number] [place] [address] June, [facility] [id number] [place] [address] June, [facility] [address] [id number] [place] [address] June, [facility] [id number] [place] [address] June, [facility] [address] [id number] [place] [address] May, [facility] [address] [id number] [place] [address] May, [facility] [address] [facility] [id number] [place] [address]60 Apr, [facility] [address] [facility] [id number] [place] [address]- [address] Apr, [facility] [address] [facility] [id number] [place] [id number] Apr, [facility] [address] [id number] [place] [address] Apr, [facility] [place] [facility] [address] [id number] [place] [address] 2746 Apr, [facility] [place] [facility] [address] [id number] [place] [address]- 4447 20 Apr, 2014 [facility] [place] [facility] [address] [id number] [place] [address]- 8883 Apr, [facility] [place] [facility] [address] [id number] [place] [address]- 5635 13 Apr, 2014 [facility] [place] [facility] [address] [id number] [place] [address]- 8973 Apr, [facility] [place] [facility] [address] [id number] [place] [address]- 2599 Apr, [facility] [place] [facility] [address] [facility] [id number] [place] [address]- 8828 Apr, [facility] [place] [facility] [address] [id number] [place] [address]- 9799 Apr, 2014 [facility] [place] [facility] [address] [id number] [place] [address]- 6582 24 Apr, 2014 [facility] [place] [facility] [address] [facility] [id number] [place] [address]- 6942 24 Apr, 2014 [facility] [place] [facility] [address] [facility] [id number] [place] [address]- 7653 Apr, 2014 [facility] [place] [facility] [address] [id number] [place] [address]- 6568 Apr, 2014 [facility] [place] [facility] [address] [id number] [place] [address]- 5320 Apr, 2014 [facility] [place] [facility] [address] [id number] [place] [address]- 6451 Apr, 2014 [facility] [place] [facility] [address] [facility] [id number] [place] [address]- 8987 18 Apr, 2014 [facility] [place] [facility] [address] [id number] [place] [address]- 6050 18 Apr, 2014 [facility] [place] [facility] [address] [id number] [place] [address]- 1366 Apr, 2014 [facility] [place] [facility] [address] [id number] [place] [address]- 2546 Apr, 2014 [facility] [place] [facility] [address] [id number] [place] [address]- 9680 Apr, 2014 [facility] [place] [facility] [address] [id number] [place] [address]- 2544 Apr, 2014 [facility] [place] [facility] [address] [id number] [place] [address]- 7545 Apr, 2014 [facility] [place] [facility] [address] [facility] [id number] [place] [address]- 6435 Apr, 2014 [facility] [place] [facility] [address] [facility] [id number] [place] [address]- 8099 Apr, 2014 [facility] [place] [facility] [address] [facility] [id number] [place] [address]- 3647 Apr, 2014 [facility] [place] [facility] [address] [facility] [id number] [place] [address]- 8209 Apr, 2014 [facility] [place] [facility] [address] [facility] [id number] [place] [address]- 9582 Apr, 2014 [facility] [place] [facility] [address] [facility] [id number] [address]- 254 Apr, 2014 [facility] [place] [facility] [address] [facility] [id number] [place] [address]- 2548 Apr, 2014 [facility] [place] [facility] [address] [facility] [id number] [place] [address]- 8967 Apr, 2014 [facility] [place] [facility] [address] [facility] [id number] [place] [address]- 1226 Mar, [facility] [place] [facility] [address] [facility] [id number] [place] [address]- 9650 Mar, [facility] [address] [id number] [place] [address]- 2709 Mar, [facility] [place] [facility] [address] [id number] [place] [address]- 1641 Mar, [facility] [place] [facility] [address] [id number] [place] [address]- 7879 Mar, [facility] [place] [facility] [address] [id number] [place] [address]- 1187 Mar, [facility] [place] [facility] [address] [id number] [place] [address]- 8986 Mar, [facility] [place] [facility] [address] [id number] [place] [address]- 0891 Mar, [facility] [place] [facility] [address] [id number] [place] [address]- 2890 Mar, [facility] [place] [facility] [address] [id number] [place] [address]- 0426 Mar, [facility] [place] [facility] [address] [id number] [place] [address]- 8971 Jan, [facility] [place] [facility] [address] [id number] [place] [address]- 1488 Jan, [facility] [place] [facility] [address] [id number] [place] [address]- 9900 Jan, [facility] [place] [facility] [address] [id number] [place] [address]- 9633 Jan, [facility] [place] [facility] [address] [id number] [place] [address]- 6841 Jan, [facility] [place] [facility] [address] [id number] [place] [address]- 1217 Jan, [facility] [place] [facility] [address] [id number] [place] [address]- 1975 Jan, [facility] [place] [facility] [address] [id number] [place] [address]- 1357 Jan, [facility] [place] [facility] [address] [id number] [place] [address]- 2148 Jan, [facility] [place] [facility] [address] [id number] [place] [address]- 1473 Jan, [facility] [place] [facility] [address] [id number] [place] [address]- 6894 Jan, [facility] [place] [facility] [address] [id number] [place] [address]- 8301 Jan, [facility] [place] [facility] [address] [id number] [place] [address]- 0584 Dec, [facility] [place] [facility] [address] [id number] [place] [address]- 4695 Dec, [facility] [place] [facility] [address] [id number] [place] [address]- 8533 Dec, [facility] [place] [facility] [address] [id number] [place] [address]- 6688 Dec, [facility] [place] [facility] [address] [id number] [place] [address]- 5284 Dec, [facility] [place] [facility] [address] [id number] [place] [address]- 2884 Dec, [facility] [place] [facility] [address] [id number] [place] [address]- 0405 Dec, [facility] [place] [facility] [address] [id number] [place] [address]- 7838 Dec, [facility] [place] [facility] [address] [id number] [place] [address]- 8112 Dec, [facility] [place] [facility] [address] [id number] [place] [address]- 7484 Dec, [facility] [place] [facility] [address] [id number] [place] [address]- 3529 31 Nov, 2013 [facility] [place] [facility] [address] [id number] [place] [address]- 7803 31 Nov, 2013 [facility] [place] [facility] [address] [id number] [place] [address]- 7577 Nov, [facility] [place] [facility] [address] [id number] [place] [address]- 9148 Nov, [facility] [place] [facility] [address] [id number] [place] [address]- 9797 Nov, [facility] [place] [facility] [address] [id number] [place] [address]- 4066 Nov, [facility] [place] [facility] [address] [id number] [place] [address]- 2015 Nov, [facility] [place] [facility] [address] [id number] [place] [address]- 0571 Nov, [facility] [place] [facility] [address] [id number] [address]- 8230 Nov, [facility] [place] [facility] [address] [id number] [place] [address]- 0840 24 Nov, 2013 [facility] [place] [facility] [address] [id number] [place] [address]- 0372 Nov, [facility] [place] [facility] [address] [id number], [place] [address]- 0958 17 Nov, 2013 [facility] [place] [facility] [address] [id number], [place] [address]- 2360 14 Nov, 2013 [facility] [place] [facility] [address] [id number] [place] [address]- 3913 14 Nov, 2013 [facility] [place] [facility] [address] [id number], [place] [address]- 4797 10 Nov, 2013 [facility] [place] [facility] [address] [id number], [place] [address]- 1898 10 Nov, 2013 [facility] [place] [facility] [address] [id number] [place] [address]- 7024 08 Nov, 2013 [facility] [place] [facility] [address] [id number] [place] [address]- 1997 Nov, [facility] [place] [facility] [address] [id number] [place] [address]- 6799 Nov, [facility] [place] [facility] [address] [id number] [place] [address]- 3435 Nov, [facility] [place] [facility] [address] [id number] [place] [address]- 5823 Oct, [facility] [place] [facility] [address] [id number] [place] [address]- 4853 Oct, [facility] [place] [facility] [address] [id number] [place] [address]- 9360 Oct, [facility] [place] [facility] [address] [id number] [place] [address]- 5738 Oct, [facility] [place] [facility] [address] [id number] [place] [address]- 6453 Oct, [facility] [place] [facility] [address] [id number] [place] [address]- 7205 Oct, [facility] [place] [facility] [address] [id number] [place] [address]- 0596 Oct, [facility] [place] [facility] [address] [id number] [place] [address]- 2549 Oct, [facility] [place] [facility] [address] [id number] [place] [address]- 4627 Oct, [facility] [place] [facility] [address] [id number] [place] [address]- 7626 Oct, [facility] [place] [facility] [address] [id number] [place] [address]- 2395 Sep, [facility] [place] [facility] [address] [id number] [place] [address]- 2398 Sep, [facility] [place] [facility] [address] [id number] [place] [address]- 8239 Sep, [facility] [place] [facility] [address] [id number] [place] [address]- 8749 Sep, [facility] [place] [facility] [address] [id number] [place] [address]- 3456 Sep, [facility] [place] [facility] [address] [id number] [place] [address]- 8838 Sep, [facility] [place] [facility] [address] [id number] [place] [address]- 3337 Sep, [facility] [place] [facility] [address] [id number] [place] [address]- 8082 Sep, [facility] [place] [facility] [address] [id number] [place] [address]- 4551 Sep, [facility] [place] [facility] [address] [id number] [place] [address]- 4677 Sep, [facility] [place] [facility] [address] [id number] [place] [address]- 0043 Sep, [facility] [place] [facility] [address] [id number] [place] [address]- 8600 Sep, [facility] [place] [facility] [address] [id number] [place] [address]- 8086 Sep, [facility] [place] [facility] [address] [id number] [place] [address]- 9613 Sep, [facility] [place] [facility] [address] [id number] [place] [address]- 8703 Sep, [facility] [place] [facility] [address] [id number] [place] [address]- 1090 Sep, [facility] [place] [facility] [address] [id number] [place] [address]- 6311 Sep, [facility] [place] [facility] [address] [id number] [place] [address]- 5574 Sep, [facility] [place] [facility] [address] [id number] [place] [address]- 4818 Sep, [facility] [place] [facility] [address] [id number] [place] [address]- 3800 Sep, [facility] [place] [facility] [address] [id number] [place] [address]- 9503 Sep, [facility] [place] [facility] [address] [id number] [place] [address]- 7187 Sep, [facility] [place] [facility] [address] [id number] [place] [address]- 1639 Sep, [facility] [place] [facility] [address] [id number] [place] [address]- 0446 Sep, [facility] [place] [facility] [address] [id number] [place] [address]- 7586 Sep, [facility] [place] [facility] [address] [id number] [place] [address]- 9696 Aug, [facility] [place] [facility] [address] [id number] [place] [address]- 7552 Aug, [facility] [place] [facility] [address] [id number] [place] [address]- 4569 Aug, [facility] [place] [facility] [address] [id number] [place] [address]- 4893 Aug, [facility] [place] [facility] [address] [id number] [place] [address]- 9386 Aug, [facility] [place] [facility] [address] [id number] [place] [address]- 0184 Aug, [facility] [place] [facility] [address] [id number] [place] [address]- 8373 Aug, [facility] [place] [facility] [address] [id number] [place] [address]- 0065 Aug, [facility] [place] [facility] [address] [id number] [place] [address]- 8676 Aug, [facility] [place] [facility] [address] [id number] [place] [address]- 1690 Aug, [facility] [place] [facility] [address] [id number] [place] [address]- 8200 Aug, [facility] [place] [facility] [address] [id number] [place] [address]- 5053 Aug, [facility] [place] [facility] [address] [id number] [place] [address]- 9576 Aug, [facility] [place] [facility] [address] [id number] [place] [address]- 0088 Jul, [facility] [place] [facility] [address] [id number] [place] [address]- 3233 Jul, [facility] [place] [facility] [address] [id number] [place] [address]- 4231 Jul, [facility] [place] [facility] [address] [id number] [place] [address]- 4909 Jul, [facility] [place] [facility] [address] [id number] [place] [address]- 2064 Jul, [facility] [place] [facility] [address] [id number] [place] [address]- 5341 Jul, [facility] [place] [facility] [address] [id number] [place] [address]- 1421 Jul, [facility] [place] [facility] [address] [id number] [place] [address]- 3764 June, [facility] [place] [facility] [address] [id number] [place] [address]- 9377 June, [facility] [place] [facility] [address] [id number] [place] [address]- 9586 June, [facility] [place] [facility] [address] [id number] [place] [address]- 1893 June, [facility] [place] [facility] [address] [id number] [place] [address]- 1286 May, [facility] [place] [facility] [address] [id number] [place] [address]- 7268 May, [facility] [place] [facility] [address] [id number] [place] [address]- 6743 May, [facility] [place] [facility] [address] [id number] [place] [address]- 0765 May, [facility] [place] [facility] [address] [id number] [place] [address]- 1166 May, [facility] [place] [facility] [address] [id number] [place] [address]- 1815 May, [facility] [place] [facility] [address] [id number] [place] [address]- 7980 May, [facility] [place] [facility] [address] [id number] [place] [address]- 0328 May, [facility] [place] [facility] [address] [id number] [place] [address]- 6380 May, [facility] [place] [facility] [address] [id number] [place] [address]- 9933 May, [facility] [place] [facility] [address] [id number] [place] [address]- 1056 Apr, [facility] [place] [facility] [address] [id number], [place] [address]- 7899 Apr, [facility] [place] [facility] [address] [id number] [place] [address]- 2487 Apr, [facility] [place] [facility] [address] [id number] [place] [address]- 3213 Apr, [facility] [place] [facility] [address] [id number] [place] [address]- 4347 Apr, [facility] [place] [facility] [address] [id number] [place] [address]- 6284 18 Apr, 2013 [facility] [address] [id number] [place] [address]- 7106 Apr, [facility] [place] [facility] [address] [id number] [place] [address]- 7956 Apr, [facility] [address] [id number] [place] [address]- 3336 Apr, [facility] [place] [facility] [address] [id number] [place] [address]- 5170 Apr, [facility] [address] [id number] [place] [address]- 7089 Mar, [facility] [address] [id number] [place] [address]- 2838 Mar, [facility] [address] [id number] [place] [address]- 4065 Mar, [facility] [address] [id number] [place] [address]- 5555 Mar, [facility] [place] [facility] [address] [facility] [id number] [place] [address]- 2372 Mar, [facility] [address] [facility] [id number] [place] [address]- 2833 Mar, [facility] [address] [id number] [place] [address]- 8065 Jan, [facility] [place] [facility] [address] [id number] [place] [address]- 3807 Jan, [facility] [place] [facility] [address] [id number] [place] [address]- 1888 Jan, [facility] [place] [facility] [address] [id number] [place] [address]- 1496 Jan, [facility] [place] [facility] [address] [id number] [place] [address]- 9019 Jan, [facility] [place] [facility] [address] [id number] [place] [address]- 6706 Jan, [facility] [place] [facility] [address] [id number] [place] [address]- 5830 Jan, [facility] [place] [facility] [address] [id number] [place] [address]- 1532 Jan, [facility] [place] [facility] [address] [id number] [place] [address]- 3340 Jan, [facility] [place] [facility] [address] [id number] [place] [address]- 0161 Dec, [facility] [place] [facility] [address] [id number] [place] [address]- 0066 Dec, [facility] [place] [facility] [address] [id number] [place] [address]- 1531 Dec, [facility] [place] [facility] [address] [id number] [place] [address]- 0982 Dec, [facility] [place] [facility] [address] [id number] [place] [address]- 7534 Dec, [facility] [place] [facility] [address] [id number], [place] [address]- 3000 Dec, [facility] [place] [facility] [address] [id number], [place] [address]- 1250 Dec, [facility] [place] [facility] [address] [id number], [place] [address]- 5415 Dec, [facility] [place] [facility] [address] [id number] [place] [address]- 5503 Dec, [facility] [place] [facility] [address] [id number], [place] [address]- 7944 Dec, [facility] [place] [facility] [address] [id number], [place] [address]- 1298 Dec, [facility] [place] [facility] [address] [id number] [place] [address]- 4546 Nov, [facility] [address] [id number] [place] [address]- 4831 Nov, [facility] [place] [facility] [address] [id number] [place] [address]- 1601 Nov, [facility] [place] [facility] [address] [id number] [place] [address] Nov, [facility] [place] [facility] [address] [id number] [place] [address] Nov, [facility] [place] [facility] [address] [id number] [place] [address] Oct, [facility] [place] [facility] [address] [id number] [place] [address] Oct, [facility] [address] [id number] [place] [address] Sep, [facility] [place] [facility] [address] [id number] [place] [address] Aug, [facility] [place] [facility] [address] [id number] [place] [address] Aug, [facility] [place] [facility] [address] [id number] [place] [address] Aug, [facility] [place] [facility] [address] [id number] [place] [address] Aug, [facility] [place] [facility] [address] [id number] [place] [address] Jul, [facility] [place] [facility] [address] [id number] [place] [address] Jul, [facility] [place] [facility] [address] [id number] [place] [address] June, [facility] [place] [facility] [address] [id number] [place] [address] June, [facility] [place] [facility] [address] [id number] [place] [address] June, [facility] [place] [facility] [address] [id number] [place] [address] 08 May, 2012 [facility] [place] [facility] [address] [id number] [place] [address] May, [facility] [place] [facility] [address] [id number] [place] [address] May, [facility] [place] [facility] [address] [id number] [place] [address] Apr, [facility] [place] [facility] [address] [id number] [place] [address] 18 Apr, 2012 [facility] [place] [facility] [address] [facility] [id number] [place] [address] 15 Apr, 2012 [facility] [place] [facility] [address] [id number] [place] [address] 14 Apr, 2012 [facility] [address] [id number] [place] [address] Apr, [facility] [place] [facility] [address] [id number] [place] [address] 89[address] Apr, [facility] [place] [facility] [address] [facility] [id number] [place] [address] Apr, [facility] [place] [facility] [address] [id number] [address] Apr, [facility] [place] [facility] [address] [id number] [place] [address] Apr, [facility] [place] [facility] [address] [id number] [place] [address] Apr, [facility] [place] [facility] [address] [facility] [id number] [place] [address]- [address]006 19 Apr, 2012 [facility] [place] [facility] [address] [facility] [id number] [place] [address]- 1418 07 Apr, 2012 [facility] [address] [id number] [place] [address]- [address]96 07 Apr, 2012 [facility] [address] [id number] [place] [address] Mar, [facility] [address] [id number] [place] [address] Mar, [facility] [address] [id number] [place] [address] 18[address] 16 Mar, 2012 [facility] [address] [id number] [place] [address] Mar, [facility] [address] [id number] [place] [address] Mar, [facility] [address] [id number] [place] [address] Jan, [facility] [address] [id number] [place] [address] 28 Jan, 2012 [facility] [address] [id number] [place] [address] Jan, [facility] [address] [id number] [place] [address]- [address]13 22 Jan, 2012 [facility] [address] [id number] [place] [address]- [address] 14 Jan, 2012 [facility] [address] [id number] [place] [address]- 2541 13 Jan, 2012 [facility] [address] [id number] [place] [address]- [address] 13 Jan, 2012 [facility] [address] [id number] [place] [address]- 2677 11 Jan, 2012 [facility] [address] [id number] [place] [address]- 1760 06 Jan, 2012 [facility] [place] [facility] [address] [id number] [place] [address]- 7[address] 06 Jan, 2012 [facility] [place] [facility] [address] [id number] [place] [address]- [address]386 04 Jan, 2012 [facility] [place] [facility] [address] [id number] [place] [address]- 5336 04 Jan, 2012 [facility] [place] [facility] [address] [id number] [place] [address]- 0886 04 Jan, 2012 [facility] [place] [facility] [address] [id number] [place] [address]- 9[address] 04 Jan, 2012 [facility] [place] [facility] [address] [id number] [place] [address]- 5648 26 Jan, 2012 [facility] [place] [facility] [address] [id number] [place] [address]- 5298 26 Jan, 2012 [facility] [place] [facility] [address] [id number] [place] [address]- 8194 19 Jan, 2012 [facility] [place] [facility] [address] [id number] [place] [address]- 4415 19 Jan, 2012 [facility] [place] [facility] [address] [id number] [place] [address]- 8016 15 Jan, 2012 [facility] [place] [facility] [address] [id number] [place] [address]- 7967 15 Jan, 2012 [facility] [place] [facility] [address] [id number] [place] [address]- 3159 14 Jan, 2012 [facility] [place] [facility] [address] [id number] [place] [address]- 9996 14 Jan, 2012 [facility] [place] [facility] [address] [id number] [place] [address]- 7526 14 Jan, 2012 [facility] [place] [facility] [address] [id number] [place] [address]- 2258 14 Jan, 2012 [facility] [place] [facility] [address] [id number] [place] [address]- [address]77 Dec, [facility] [place] [facility] [address] [id number] [place] [address]- 9424 Dec, [facility] [place] [facility] [address] [id number] [place] [address]- 2846 16 Dec, 2011 [facility] [place] [facility] [address] [id number] [place] [address] 2546 16 Dec, 2011 [facility] [place] [facility] [address] [id number] [place] [address]- [address]307 13 Nov, 2011 [facility] [place] [facility] [address] [id number] [place] [address]- 3976 13 Nov, 2011 [facility] [place] [facility] [address] [id number] [place] [address]- 6944 13 Nov, 2011 [facility] [place] [facility] [address] [id number] [place] [address] Oct, [facility] [place] [facility] [address] [id number] [place] [address] Sep, [facility] [place] [facility] [address] [id number] [place] [address] Sep, [facility] [place] [facility] [address] [id number] [place] [address] Aug, [facility] [place] [facility] [address] [id number] [address] Aug, [facility] [place] [facility] [address] [id number], [place] [address] Aug, [facility] [place] [facility] [address] [id number] [place] [address] Aug, [facility] [place] [facility] [address] [id number][place] [address] June, [facility] [place] [facility] [address] [id number] [place] [address] June, [facility] [place] [facility] [address] [id number] [place] [address] 17 Jun, 2011 [facility] [address] [id number] [place] [address] Apr, [facility] [address] [id number] [place] [address] Apr, [facility] [address] [id number] [place] [address] Apr, [facility] [address] [id number] [place] [address]46 Apr, [facility] [address] [id number] [place] [address] Apr, [facility] [address] [id number] [place] [address] Apr, [facility] [address] [id number] [place] [address] Mar, [facility] [address] [id number] [place] [address] Mar, [facility] [address] [id number] [place] [address] Mar, [facility] [address] [id number] [place] [address] Jan, [facility] [address] [id number] [place] [address] Jan, [facility] [address] [id number] [place] [address] 2546 Jan, [facility] [place] [facility] [address] [id number] [place] [address] Jan, [facility] [place] [facility] [address] [id number] [place] [address] Jan, [facility] [address] [id number] [place] [address] Jan, [facility] [place] [facility] [address] [id number] [place] [address] Jan, [facility] [place] [facility] [address] [id number] [place] [address]- 4535 Dec, [facility] [place] [facility] [address] [id number] [place] [address]298 Dec, [facility] [place] [facility] [address] [id number] [place] [address] Nov, [facility] [place] [facility] [address] [id number] [place] Nov, [facility] [place] [facility] [address] [id number] [place] [address] Nov, [facility] [place] [facility] [address] [id number] [place] [address] Nov, [facility] [place] [facility] [address] [id number][place] [address] Oct, [facility] [place] [facility] [address] [id number] [place] [address] Sep, [facility] [place] [facility] [address] [id number], [place] [address] Mar, [facility] [place] [facility] [address] [id number], [place] [address] Jan, [facility] [place] [facility] [address] [id number][place] [address] Dec, [facility] [place] [facility] [address] [id number] [place] [address]- [address] Dec, [facility] [place] [facility] [address] [id number] [place] [address] Dec, [facility] [place] [facility] [address] [id number], [place] [address] Dec, [facility] [place] [facility] [address] [id number], [place] [address] 26 Nov, 2009 [facility] [address] [id number] [place] [address] 15 Nov, 2009 [facility] [place] [facility] [address] [id number], [place] [address]26 14 Nov, 2009 [facility] [address] [facility] [id number] [place] [address]- [address] 14 Nov, 2009 [facility] [place] [facility] [address] [id number][place] [address] 13 Oct, 2009 [facility] [address] [id number] [place] [address] 17 Jul, 2009 [facility] [place] [facility] [address] [facility] [id number] [place] [address]- [address] 17 Jun, 2009 [facility] [address] [facility] [id number], [place] [address] 14 Jun, 2009 [facility] [address] [facility] [id number] [place] [address] 8488 17 Apr, 2009 [facility] [address] [facility] [id number], [place] [address] Mar, [facility] [address] [facility] [id number], [place] [address] 24 Jan, 2009 [facility] [address] [facility] [id number][place] [address] 19 Jan, 2009 [facility] [place] [facility] [address] [id number], [place] [address]45 27 Dec, 2008 [facility] [place] [facility] [address] [id number], [place] [address] 25 Dec, 2008 [facility] [place] [facility] [address] [facility] [id number][place] [address] 13 Dec, 2008 [facility] [place] [facility] [address] [facility] [id number][place] [address] 8660 13 Dec, 2008 [facility] [place] [facility] [address] [facility] [id number] [place] [address] Nov, [facility] [address] [facility] [id number] [place] [address] Jul, [facility] [address] [facility] [id number] [place] [address] June, IMMUNIZATIONS No Known Immunizations SOCIAL HISTORY Never Assessed REASON FOR VISIT PA CT T Spine w/contrast PLAN OF CARE VITAL SIGNS MEDICATIONS Unknown Medications RESULTS No Results PROCEDURES No Known procedures INSTRUCTIONS MEDICATIONS ADMINISTERED No Known Medications MEDICAL (GENERAL) HISTORY Type Description Date Medical History hypertension Medical History sleep apnea-did not tolerate CPAP Medical History oxygen dependent at [facility] Medical History colonic polyps Medical [...]
--- OUTSIDE RECORDS SUMMARY | 2018-02-26 19:29 | XMS REPORT ---
Author Author CHRIS STEVENSON [facility] Address [address] [place] [address] Care Team Providers Care Door Liner Name Role Phone GRAHAMELLIOTT HANNAHANY Unavailable PROBLEMS Type Condition ICD9-CM Code WPU69-SF Code Onset Dates Condition Status SNOMED Code Problem Pulmonary asbestosis J61 Active 15592537 Problem Left ventricular diastolic dysfunction I51.9 Active 389044264 Problem Chronic gout, unspecified cause, unspecified site [id number].[id number] Active 97440444 Problem Renal cyst, left N28.1 Active 06516267 Problem History of weight loss surgery Z98.84 Active 525449052 Problem Nocturnal hypoxia G47.34 Active 256333950 Problem Obstructive sleep apnea syndrome G47.33 Active 50288304 Problem History of diverticulitis Z87.19 Active 832455711910805 Problem Allergic rhinitis, unspecified allergic rhinitis type J30.9 Active 22850767 Problem Erectile dysfunction due to diseases classified elsewhere N52.1 Active 685355109 Problem Acute right-sided low back pain with right-sided sciatica M54.41 Active 189974027 Problem Psoriasis L40.9 Active 8893688 Problem Essential hypertension I10 Active 05458394 Problem Nephrolithiasis N20.0 Active 93926642 Problem Chronic prescription opiate use Z79.899 Active 504724573 Problem 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 Active 48237833 Problem Benign prostatic hyperplasia, presence of lower urinary tract symptoms unspecified, unspecified morphology N40.0 Active 173615463 Problem Moderate episode of recurrent major depressive disorder F33.1 Active 271429912 Problem Age-related osteoporosis without current pathological fracture M81.0 Active 30188225 Problem Low back pain M54.5 Active 130811279 Problem Anxiety F41.9 Active 96828105 Problem Urge incontinence N39.41 Active 774705080 Problem Hyperlipidemia, unspecified E78.5 Active 47786112 Problem Esophageal stricture K22.2 Active 11120045 Problem Cervicalgia M54.2 Active 4353039767262 Problem Primary insomnia F51.01 Active 836215161 ALLERGIES No Information ENCOUNTERS Encounter Location Date Diagnosis [facility] [id number] [place] [address] 96953- 8237 Jul, Anxiety F41.9 [facility] [id number] [place] [address] 70738- 0161 June, Anxiety F41.9 [facility] [address] 04873- 3305 June, [facility] [address] 33324- 8529 June, Low back pain M54.5 ; Chronic prescription opiate use Z79.899 ; Candidal intertrigo B37.2 ; Urge incontinence N39.41 ; Essential hypertension I10 ; Moderate episode of recurrent major depressive disorder F33.1 ; Age-related osteoporosis without current pathological fracture M81.0 and BMI 45.0-49.9, adult Z68.42 [facility] [id number] [place] [address] 20161- 0042 June, [facility] [address] 68987- 9822 May, Anxiety F41.9 [facility] [id number] [place] [address] 51005- 4339 May, [facility] [id number] [place] [address] 39885- 3792 May, [facility] [id number] [place] [address] 26730- 8638 Apr, Anxiety F41.9 [facility] [id number] [place] [address] 99450- 1249 Apr, [facility] [id number] [place] [address] 92959- 8857 Apr, Low back pain M54.5 [facility] [address] [place] [address]- 6098 Apr, [facility] [id number] [place] [address] 18483- 8390 Apr, [facility] [id number] [place] [address] 04346- 2698 Apr, Anxiety F41.9 [facility] [id number] [place] [address] 46587- 5866 Apr, Right groin pain R10.31 [facility] [id number] [place] [address] 97961- 6744 Mar, [facility] [id number] [place] [address] 09707- 6741 Mar, [facility] [id number] [place] [address] 70241- 7853 Mar, Anxiety F41.9 [facility] [id number] [place] [address] 03328- 0104 Mar, Low back pain M54.5 [facility] [id number] [place] [address] 78770- 4212 Mar, Right groin pain R10.31 ; Low back pain M54.5 and BMI 45.0- 49.9, adult Z68.42 [facility] [id number] [place] [address] 22456- 5841 Mar, [facility] [id number] [place] [address] 33852- 4255 Mar, [facility] [id number] [place] [address] 36232- 1962 Mar, [facility] [id number] [place] [address] 30214 -3145 Mar, [facility] [id number] [place] [address] 97676 -5387 Mar, Cough R05 ; Pneumonia of right lower lobe due to infectious organism J18.1 and Abnormal chest x-ray R93.8 [facility] [id number] [place] [address] 87787- 3961 Mar, [facility] [id number] [place] [address] 32529- 2939 Mar, [facility] [id number] [place] [address] 79999- 1817 Jan, Anxiety F41.9 [facility] [id number] [place] [address] 15190- 3182 Jan, [facility] [id number] [place] [address] 35599- 4994 Jan, Moderate episode of recurrent major depressive disorder F33.1 [facility] [id number] [place] [address] 62006- 7285 Jan, Subacromial bursitis of right shoulder joint M75.51 ; Shortness of breath on exertion R06.02 and BMI 45.0-49.9, adult Z68.42 [facility] [id number] [place] [address] 81459- 0029 Dec, Anxiety F41.9 [facility] [id number] [place] [address] 57335- 1209 Dec, [facility] [id number] [place] [address] 94462- 9843 Dec, Low back pain M54.5 [facility] [id number] [place] [address] 15872- 3645 Oct, Low back pain M54.5 [facility] [id number] [place] [address] 98024- 6231 Sep, [facility] [id number] [place] [address] 77479- 0930 Sep, Erectile dysfunction due to diseases classified elsewhere N52.1 [facility] [id number] [place] [address] 92421- 7130 Sep, Erectile dysfunction due to diseases classified elsewhere N52.1 [facility] [id number] [place] [address] 93355- 0810 Sep, [facility] [id number] [place] [address] 12260- 7040 Sep, Erectile dysfunction due to diseases classified elsewhere N52.1 [facility] [id number] [place] [address] 92903- 4744 Sep, Low back pain M54.5 and Anxiety F41.9 [facility] [id number] [place] [address] 30777 -9020 Aug, Acute allergic rhinitis J30.9 [facility] [id number] [place] [address] 42289- 8505 Aug, [facility] [address] 06715- 1419 Aug, Anxiety F41.9 [facility] [id number] [place] [address] 51821- 7435 Jul, Low back pain M54.5 ; Chronic prescription opiate use Z79.899 and Essential hypertension I10 [facility] [id number] [place] [address] 01063- 6471 Jul, Anxiety F41.9 and Low back pain M54.5 [facility] [id number] [place] [address] 05115- 3347 June, [facility] [id number] [place] [address] 41622- 1409 June, Anxiety F41.9 [facility] [id number] [place] [address] 40105- 7765 May, Low back pain M54.5 [facility] [id number] [place] [address] 59340- 9384 May, [facility] [id number] [place] [address] 13596- 9077 May, Anxiety F41.9 [facility] [id number] [place] [address] 02518- 4261 Apr, [facility] [id number] [place] [address] 35968- 9225 Apr, Low back pain M54.5 [facility] [id number] [place] [address] 94722- 8817 Apr, Moderate episode of recurrent major depressive disorder F33.1 [place] [address] 78332- 8849 06 Apr, 2016 Anxiety F41.9 [facility] [id number] [place] [address] 51450- 4511 Apr, Low back pain M54.5 [facility] [id number] [place] [address] 39767- 7352 15 Apr, 2016 Elevated alkaline phosphatase level R74.8 [place] [id number] [place] [address] 27047- 8292 10 Apr, 2016 Alkaline phosphatase elevation R74.8 [place] [facility] [id number] [place] [address] 65053- 7872 06 Apr, 2016 Anxiety F41.9 [facility] [id number] [place] [address] 00545- 4228 03 Apr, 2016 Low back pain M54.5 [facility] [id number] [place] [address] 80763- 1994 03 Apr, 2017 History of weight loss surgery Z98.84 ; Encounter for hepatitis C screening test for low risk patient Z11.59 ; History of herpes genitalis Z86.19 ; Essential hypertension I10 ; Hyperlipidemia, unspecified E78.5 ; Exposure to STD Z20.2 and Benign prostatic hyperplasia, presence of lower urinary tract symptoms unspecified, unspecified morphology N40.0 [facility] [address] [address]- 3459 02 Apr, 2016 [place] [id number] [place] [address] 14177- 5203 Mar, [facility] [address] [address]- 2823 Mar, [place] [id number] [place] [address] 40685- 4174 Mar, [place] [id number] [place] [address] 76211- 9536 Mar, Acute right-sided low back pain with right-sided sciatica M54.41 [place] [id number] [place] [address] 64587- 9942 Mar, Low back pain M54.5 [facility] [id number] [place] [address] 75058 -9041 Mar, Muscle strain of chest wall, initial encounter S29.011A ; Muscle strain of right thigh, initial encounter S76.911A and Acute non- recurrent maxillary sinusitis J01.00 [place] [id number] [place] [address] 82639- 8513 Mar, Benign prostatic hyperplasia, presence of lower urinary tract symptoms unspecified, unspecified morphology N40.0 [place] [address] [address]- 8530 Jan, Low back pain M54.5 [place] [id number] [place] [address] 04771- 4195 13 Jan, 2016 Low back pain M54.5 ; Essential hypertension I10 ; Hyperlipidemia, unspecified E78.5 ; Anxiety F41.9 ; Moderate episode of recurrent major depressive disorder F33.1 ; Primary insomnia F51.01 ; Exposure to STD Z20.2 ; Encounter for hepatitis C screening test for low risk patient Z11.59 and History of herpes genitalis Z86.19 [place] [facility] [id number] [address]- 1462 Dec, [facility] [id number] [place] [address] 59183- 8795 Nov, [facility] [id number] [place] [address] 80937- 0066 Nov, Anxiety F41.9 ; Cervicalgia M54.2 ; Moderate episode of recurrent major depressive disorder F33.1 and Encounter for immunization Z23 [facility] [id number] [place] [address] 72728- 8332 Oct, [facility] [id number] [place] [address] 52146- 3542 22 Nov, 2015 [facility] [id number] [place] [address] 96231- 1971 16 Nov, 2015 [facility] [id number] [place] [address] 55815- 5229 Oct, [facility] [id number] [place] [address] 83486- 1285 Sep, [facility] [id number] [place] [address] 47622- 0561 Aug, Low back pain M54.5 ; Anxiety F41.9 ; Primary insomnia F51.01 and Chronic prescription opiate use Z79.899 [facility] [id number] [place] [address] 71630- 8168 Jul, [facility] [id number] [place] [address] 07506- 3100 Jul, [facility] [id number] [place] [address] 51562- 5267 Jul, [facility] [id number] [place] [address] 33718- 4090 Jul, [facility] [id number] [place] [address] 84599- 1998 Jul, [facility] [address], [place] [address]- 1495 June, [facility] [id number] [place] [address] 10546- 0696 June, [facility] [id number] [address]- 5019 June, [facility] [id number] [place] [address] 78300- 2488 June, [facility] [id number] [place] [address] 49080- 7408 May, Preoperative cardiovascular examination Z01.810 [facility] [id number] [place] [address] 04055- 8610 May, [facility] [id number] [place] [address] 00290- 2479 Apr, [facility] [id number] [place] [address] 11383- 5588 Apr, Osteoarthritis of right knee M17.9 [facility] [id number] [place] [address] 53264- 1276 Apr, [facility] [id number] [place] [address] 01359- 7205 Apr, [facility] [address], [place] [address]- 6245 Apr, [facility] [id number] [address]- 7369 Apr, [facility] [id number] [place] [address] 20821- 7841 08 May, 2015 History of excessive cerumen Z78.9 ; Obstructive sleep apnea syndrome G47.33 ; History of diverticulitis Z87.19 and Nephrolithiasis N20.0 [facility] [address], [place] [address]- 2652 Apr, [facility] [address], [place] [address] -6004 Apr, Abdominal pain R10.9 [facility] [id number] [place] [address] 57270- 5766 Apr, [facility] [id number] [place] [address] 27733- 1118 Apr, Osteoarthritis of right knee M17.9 [facility] [id number] [place] [address] 05789- 6169 Mar, [place] [id number] [place] [address] 20877- 5381 Mar, [facility] [id number] [place] [address] 08898- 4698 Mar, [place] [id number] [place] [address] 95263- 2413 Mar, [facility] [id number] [place] [address] 74202 -3376 Mar, Pyelonephritis N12 ; Left-sided thoracic back pain M54.6 ; Hematuria, unspecified R31.9 and Kidney stone N20.0 [place] [id number] [place] [address] 74448- 8419 Mar, History of weight loss surgery Z98.84 [place] [id number] [place] [address] 90765- 2735 Mar, History of weight loss surgery Z98.84 and Hyperlipidemia, unspecified E78.5 [place] [id number] [place] [address] 34914- 4667 Mar, Low back pain M54.5 ; Chronic prescription opiate use Z79.899 ; Hyperlipidemia, unspecified E78.5 ; Spasm of back muscles M62.830 and History of weight loss surgery Z98.84 [place] [id number] [place] [address] 34795- 5774 Jan, [facility] [address], [place] [address]- 0707 Jan, [facility] [id number] [place] [address] 302634- 6580 Jan, [facility] [id number] [place] [address] 246375- 6074 Dec, [facility] [id number] [place] [address] 83647- 5122 Dec, [facility] [id number] [place] [address] 26723- 6518 Dec, [facility] [id number] [place] [address] 005597- 5722 Nov, [facility] [id number] [place] [address] 43106- 7972 Nov, Obstructive sleep apnea syndrome G47.33 and Pharyngoesophageal dysphagia R13.14 [facility] [address], [place] [address]- 2532 Nov, [facility] [id number] [place] [address] 74930- 4155 Nov, [facility] [address], [place] [address]- 8747 Nov, [facility] [address] [place] [address] [id number] 30 Oct, 2014 Dental examination V72.2 [facility] [address], [place] [address]- 5393 Oct, [facility] [id number] [place] [address] 688863- 1811 Oct, [facility] [address] 3244 Oct, [facility] [id number] [place] [address] 86058- 0376 Oct, [facility] [id number] [place] [address] 91902- 7961 Oct, BPH (benign prostatic hyperplasia) 600.00 and Urinary frequency 788.41 [facility] [id number] [place] [address] 99550- 2244 Oct, [facility] [address] 29365- 5823 Oct, [facility] [address] 47624- 6045 Oct, [facility] [address] 72549- 4086 Sep, Cerumen impaction 380.4 ; Cerumen debris on tympanic membrane 380.4 ; Psoriasis 696.1 and MICKY (secretory otitis media) 381.4 [facility] [id number] [place] [address] [id number] Sep, Dental examination V72.2 [facility] [id number] [place] [address] 58508- 5284 Sep, Fatigue 780.79 ; Irritable bowel syndrome 564.1 ; Overweight 278.02 ; Poor sleep V69.4 ; Shaking spells 781.0 and Broken tooth 873.63 [facility] [id number] [place] [address] 89394- 7030 Sep, [facility] [id number] [place] [address] 02764- 6093 Sep, [facility] [id number] [place] [address] 46951- 3172 Aug, [facility] [id number] [place] [address] 53149- 6942 Jul, [facility] [id number] [place] [address] 91218- 0104 Jul, [facility] [address] [id number] [place] [address]- 8944 Jul, [facility] [address] [facility] [id number] [place] [address]- 2314 Jul, [facility] [address] [facility] [id number] [place] [address]- 5217 June, Arthritis of knee, right 716.96 [facility] [address] [facility] [id number] [place] [address]- 9658 June, [facility] [address] [facility] [id number] [place] [address] June, Elevated blood pressure reading without diagnosis of hypertension 796.2 [facility] [address] [facility] [id number] [place] [address] June, [facility] [id number] [place] [address] June, [facility] [address] [id number] [place] [address] June, [facility] [address] [id number] [place] [address] June, [facility] [address] [id number] [place] [address] May, [facility] [address] [id number] [place] [address] May, [facility] [address] [facility] [id number] [place] [address] Apr, [facility] [address] [id number] [place] [address] Apr, [facility] [address] [facility] [id number] [place] [address] Apr, [facility] [address] [id number] [place] [address] Apr, [facility] [place] [facility] [address] [id number] [place] [address] 20 Apr, 2014 [facility] [place] [facility] [address] [id number] [place] [address] 20 Apr, 2014 [facility] [place] [facility] [address] [id number] [place] [address] 13 Apr, 2014 [facility] [place] [facility] [address] [id number] [place] [address] 13 Apr, 2014 [facility] [place] [facility] [address] [id number] [place] [address] Apr, 2014 [facility] [place] [facility] [address] [id number] [place] [address] Apr, 2014 [facility] [place] [facility] [address] [id number] [place] [address] Apr, 2014 [facility] [place] [facility] [address] [id number] [place] [address] Apr, 2014 [facility] [place] [facility] [address] [id number] [place] [address] 24 Apr, 2014 [facility] [place] [facility] [address] [facility] [id number] [place] [address] 24 Apr, 2014 [facility] [place] [facility] [address] [facility] [id number] [place] [address] 23 Apr, 2014 [facility] [place] [facility] [address] [id number] [place] [address] 23 Apr, 2014 [facility] [place] [facility] [address] [id number] [place] [address] Apr, 2014 [facility] [place] [facility] [address] [id number] [place] [address] 20 Apr, 2014 [facility] [place] [facility] [address] [facility] [id number] [place] [address] 18 Apr, 2014 [facility] [place] [facility] [address] [id number] [place] [address] 77[address] 18 Apr, 2014 [facility] [place] [facility] [address] [facility] [id number] [place] [address] 72[address] Apr, 2014 [facility] [place] [facility] [address] [facility] [id number] [place] [address] 6153 Apr, 2014 [facility] [place] [facility] [address] [facility] [id number] [place] [address] 6337 Apr, 2014 [facility] [place] [facility] [address] [facility] [id number] [place] [address] 0771 Apr, 2014 [facility] [place] [facility] [address] [facility] [id number] [place] [address]- 6121 Apr, 2014 [facility] [place] [facility] [address] [id number] [place] [address] 74[address] Apr, 2014 [facility] [place] [facility] [id number] [place] [address] 7870 Apr, 2014 [facility] [place] [facility] [address] [facility] [id number] [place] [address]- 0155 Apr, 2014 [facility] [place] [facility] [address] [id number] [place] [address] 2328 Apr, 2014 [facility] [place] [facility] [address] [id number] [place] [address]- 4266 Apr, 2014 [facility] [place] [facility] [address] [facility] [id number], [place] [address] Apr, 2014 [facility] [place] [facility] [address] [facility] [id number] [place] [address]- 7088 Apr, 2014 [facility] [place] [facility] [address] [facility] [id number] [place] [address]- 1073 Apr, 2014 [facility] [place] [facility] [address] [facility] [id number] [place] [address]- 1579 Mar, [facility] [place] [facility] [id number], [place] [address] Mar, [facility] [place] [facility] [address] [id number] [place] [address]- 7278 Mar, [facility] [place] [facility] [address] [id number] [place] [address]- 3776 Mar, [facility] [place] [facility] [address] [id number] [place] [address]- 7596 Mar, [facility] [place] [facility] [address] [id number] [place] [address]- 0709 Mar, [facility] [place] [facility] [address] [id number] [place] [address]- 3323 Mar, [facility] [place] [facility] [address] [id number] [place] [address]- 7489 Mar, [facility] [place] [facility] [address] [id number] [place] [address]- 2420 Mar, [facility] [place] [facility] [address] [id number] [place] [address]- 0150 Mar, [facility] [place] [facility] [address] [id number] [place] [address]- 4087 Jan, [facility] [place] [facility] [address] [id number] [place] [address]- 8967 Jan, [facility] [place] [facility] [address] [id number] [place] [address]- 3895 Jan, [facility] [place] [facility] [address] [id number] [place] [address]- 6450 Jan, [facility] [place] [facility] [address] [id number] [place] [address] Jan, [facility] [place] [facility] [address] [id number] [place] [address]- 0164 Jan, [facility] [place] [facility] [address] [id number] [place] [address]- 0818 Jan, [facility] [place] [facility] [address] [id number] [place] [address]- 9210 05 Jan, 2014 [facility] [place] [facility] [address] [id number] [place] [address]- 4184 Jan, [facility] [place] [facility] [address] [id number] [place] [address]- 1978 Jan, [facility] [place] [facility] [address] [id number] [place] [address]- 4468 Jan, [facility] [place] [facility] [address] [id number] [place] [address]- 4149 Jan, [facility] [place] [facility] [address] [id number] [place] [address]- 8067 Dec, [facility] [place] [facility] [address] [id number] [place] [address]- 6041 Dec, [facility] [place] [facility] [address] [id number] [place] [address]- 4124 Dec, [facility] [place] [facility] [address] [id number] [place] [address]- 9099 Dec, [facility] [place] [facility] [address] [id number] [place] [address]- 3069 Dec, [facility] [place] [facility] [address] [id number] [place] [address]- 6272 Dec, [facility] [place] [facility] [address] [id number] [place] [address]- 3734 Dec, [facility] [place] [facility] [address] [id number] [place] [address]- 4113 Dec, [facility] [place] [facility] [address] [id number] [place] [address]- 0419 Dec, [facility] [place] [facility] [address] [id number] [place] [address]- 1103 Dec, [facility] [place] [facility] [address] [id number] [place] [address]- 3505 Nov, [facility] [place] [facility] [address] [id number] [place] [address]- 4325 31 Nov, 2013 [facility] [place] [facility] [address] [id number] [place] [address]- 8051 Nov, [facility] [place] [facility] [address] [id number] [place] [address]- 3814 Nov, [facility] [place] [facility] [address] [id number] [place] [address]- 5455 Nov, [facility] [place] [facility] [address] [id number] [place] [address]- 5330 Nov, [facility] [place] [facility] [address] [id number] [place] [address]- 6352 Nov, [facility] [place] [facility] [address] [id number] [place] [address]- 9781 Nov, [facility] [place] [facility] [address] [id number], [place] [address] 0276 Nov, [facility] [place] [facility] [address] [id number] [place] [address]- 8500 24 Nov, 2013 [facility] [place] [facility] [address] [id number], [place] [address]- 4510 Nov, [facility] [place] [facility] [address] [id number], [place] [address]- 4512 17 Nov, 2013 [facility] [place] [facility] [address] [id number], [place] [address]- 0586 14 Nov, 2013 [facility] [place] [facility] [address] [id number] [place] [address]- 4217 14 Nov, 2013 [facility] [place] [facility] [address] [id number], [place] [address]- 9016 10 Nov, 2013 [facility] [place] [facility] [address] [id number], [place] [address]- 1278 10 Nov, 2013 [facility] [place] [facility] [address] [id number], [place] [address]- 9482 08 Nov, 2013 [facility] [place] [facility] [address] [id number] [place] [address]- 0818 Nov, [facility] [place] [facility] [address] [id number] [place] [address]- 7227 Nov, [facility] [place] [facility] [address] [id number] [place] [address]- 9926 Nov, [facility] [place] [facility] [address] [id number] [place] [address]- 1485 Oct, [facility] [place] [facility] [address] [id number] [place] [address]- 2245 Oct, [facility] [place] [facility] [address] [id number] [place] [address]- 5631 Oct, [facility] [place] [facility] [address] [id number] [place] [address]- 2640 Oct, [facility] [place] [facility] [address] [id number] [place] [address]- 7773 Oct, [facility] [place] [facility] [address] [id number] [place] [address]- 2438 Oct, [facility] [place] [facility] [address] [id number] [place] [address]- 9120 Oct, [facility] [place] [facility] [address] [id number] [place] [address]- 4553 Oct, [facility] [place] [facility] [address] [id number], [place] [address]- 6334 Oct, [facility] [place] [facility] [address] [id number] [place] [address]- 6305 Oct, [facility] [place] [facility] [address] [id number] [place] [address]- 3531 Sep, [facility] [place] [facility] [address] [id number] [place] [address]- 4384 Sep, [facility] [place] [facility] [address] [id number] [place] [address]- 4612 Sep, [facility] [place] [facility] [address] [id number] [place] [address]- 8467 Sep, [facility] [place] [facility] [address] [id number] [place] [address]- 6733 Sep, [facility] [place] [facility] [address] [id number] [place] [address]- 9438 Sep, [facility] [place] [facility] [address] [id number] [place] [address]- 8238 Sep, [facility] [place] [facility] [address] [id number] [place] [address]- 9177 Sep, [facility] [place] [facility] [address] [id number] [place] [address]- 4283 Sep, [facility] [place] [facility] [address] [id number] [place] [address]- 9705 Sep, [facility] [place] [facility] [address] [id number] [place] [address]- 5189 Sep, [facility] [place] [facility] [address] [id number] [place] [address]- 6576 Sep, [facility] [place] [facility] [address] [id number] [place] [address]- 3846 Sep, [facility] [place] [facility] [address] [id number] [place] [address]- 7711 Sep, [facility] [place] [facility] [address] [id number] [place] [address]- 8261 Sep, [facility] [place] [facility] [address] [id number] [place] [address]- 1233 Sep, [facility] [place] [facility] [address] [id number] [place] [address]- 8210 Sep, [facility] [place] [facility] [address] [id number] [place] [address]- 3445 Sep, [facility] [place] [facility] [address] [id number] [place] [address]- 0993 Sep, [facility] [place] [facility] [address] [id number] [place] [address]- 2068 Sep, [facility] [place] [facility] [address] [id number] [place] [address]- 0526 Sep, [facility] [place] [facility] [address] [id number] [place] [address]- 4900 Sep, [facility] [place] [facility] [address] [id number] [place] [address]- 5968 Sep, [facility] [place] [facility] [address] [id number] [place] [address]- 4043 Sep, [facility] [place] [facility] [address] [id number] [place] [address]- 9354 Sep, [facility] [place] [facility] [address] [id number] [place] [address]- 4751 Aug, [facility] [place] [facility] [address] [id number] [place] [address]- 7716 Aug, [facility] [place] [facility] [address] [id number] [place] [address]- 0580 Aug, [facility] [place] [facility] [address] [id number] [place] [address]- 1254 Aug, [facility] [place] [facility] [address] [id number] [place] [address]- 8568 Aug, [facility] [place] [facility] [address] [id number] [place] [address]- 2314 Aug, [facility] [place] [facility] [address] [id number] [place] [address]- 8467 Aug, [facility] [place] [facility] [address] [id number] [place] [address]- 8778 Aug, [facility] [place] [facility] [address] [id number] [place] [address]- 3200 Aug, [facility] [place] [facility] [address] [id number] [place] [address]- 1756 Aug, [facility] [place] [facility] [address] [id number] [place] [address]- 1693 Aug, [facility] [place] [facility] [address] [id number] [place] [address]- 2129 Aug, [facility] [place] [facility] [address] [id number] [place] [address]- 7021 Aug, [facility] [place] [facility] [address] [id number] [place] [address]- 0882 Jul, [facility] [place] [facility] [address] [id number] [place] [address]- 2398 Jul, [facility] [place] [facility] [address] [id number] [place] [address]- 9571 Jul, [facility] [place] [facility] [address] [id number] [place] [address]- 5824 Jul, [facility] [place] [facility] [address] [id number] [place] [address]- 3616 Jul, [facility] [place] [facility] [address] [id number] [place] [address]- 0594 Jul, [facility] [place] [facility] [address] [id number] [place] [address]- 5103 Jul, [facility] [place] [facility] [address] [id number] [place] [address]- 8554 June, [facility] [place] [facility] [address] [id number] [place] [address]- 9261 June, [facility] [place] [facility] [address] [id number] [place] [address]- 1911 June, [facility] [place] [facility] [address] [id number] [place] [address]- 1071 June, [facility] [place] [facility] [address] [id number] [place] [address]- 6802 May, [facility] [place] [facility] [address] [id number] [place] [address]- 4988 May, [facility] [place] [facility] [address] [id number] [place] [address]- 7134 May, [facility] [place] [facility] [address] [id number] [place] [address]- 6456 May, [facility] [place] [facility] [address] [id number] [place] [address]- 6489 May, [facility] [place] [facility] [address] [id number] [place] [address]- 3427 May, [facility] [place] [facility] [address] [id number] [place] [address]- 8775 May, [facility] [place] [facility] [address] [id number] [place] [address]- 8802 May, [facility] [place] [facility] [address] [id number] [place] [address]- 2120 May, [facility] [place] [facility] [address] [id number] [place] [address]- 5318 May, [facility] [place] [facility] [address] [id number] [place] [address]- 4508 Apr, [facility] [place] [facility] [address] [id number] [place] [address]- 2662 Apr, [facility] [place] [facility] [address] [id number] [place] [address]- 3975 Apr, [facility] [place] [facility] [address] [id number] [place] [address]- 5989 Apr, [facility] [place] [facility] [address] [id number] [place] [address]- 1651 Apr, [facility] [place] [facility] [address] [id number] [place] [address]- 5205 Apr, [facility] [address] [id number] [place] [address]- 0616 Apr, [facility] [place] [facility] [address] [id number] [place] [address]- 7386 Apr, [facility] [place] [facility] [address] [id number] [place] [address]- 2946 Apr, [facility] [place] [facility] [address] [id number] [place] [address]- 3126 Apr, [facility] [place] [facility] [address] [id number] [place] [address]- 4735 Mar, [facility] [place] [facility] [address] [id number] [place] [address]- 5869 Mar, [facility] [address] [id number] [place] [address]- 3526 Mar, [facility] [place] [facility] [address] [id number] [place] [address]- 0733 Mar, [facility] [place] [facility] [address] [id number] [place] [address]- 6854 Mar, [facility] [place] [facility] [address] [facility] [id number] [place] [address]- 5192 Mar, [facility] [place] [facility] [address] [id number] [place] [address]- 8987 Jan, [facility] [place] [facility] [address] [id number] [place] [address]- 9161 Jan, [facility] [place] [facility] [address] [id number] [place] [address]- 5576 Jan, [facility] [place] [facility] [address] [id number] [place] [address]878 Jan, [facility] [place] [facility] [address] [id number] [place] [address]- 6939 Jan, [facility] [place] [facility] [address] [id number] [place] [address]- 5639 Jan, [facility] [place] [facility] [address] [id number] [place] [address]- 3615 Jan, [facility] [place] [facility] [address] [id number] [place] [address]- 3795 Jan, [facility] [place] [facility] [address] [id number] [place] [address]- 9374 Jan, [facility] [place] [facility] [address] [id number] [place] [address]- 9409 Dec, [facility] [place] [facility] [address] [id number] [place] [address]- 1848 Dec, [facility] [place] [facility] [address] [id number] [place] [address]- 4106 Dec, [facility] [place] [facility] [address] [id number] [place] [address]- 2774 Dec, [facility] [place] [facility] [address] [id number] [place] [address]- 2367 Dec, [facility] [place] [facility] [address] [id number] [place] [address]- 4218 Dec, [facility] [place] [facility] [address] [id number] [place] [address]- 2213 Dec, [facility] [place] [facility] [address] [id number] [place] [address]- 6742 Dec, [facility] [place] [facility] [address] [id number] [place] [address]- 2353 Dec, [facility] [place] [facility] [address] [id number] [place] [address]- 4941 Dec, [facility] [place] [facility] [address] [id number] [place] [address]- 6145 Dec, [facility] [place] [facility] [address] [id number] [place] [address]- 3926 Nov, [facility] [place] [facility] [address] [id number] [place] [address]- 9872 Nov, [facility] [place] [facility] [address] [id number] [place] [address]- 8664 Nov, [facility] [place] [facility] [address] [id number] [place] [address]- 4538 Nov, [facility] [place] [facility] [address] [id number] [place] [address]- 8249 Nov, [facility] [place] [facility] [address] [id number] [place] [address]- 0643 Oct, [facility] [place] [facility] [address] [id number] [place] [address]- 0681 Oct, [facility] [place] [facility] [address] [id number] [place] [address]- 7142 Sep, [facility] [place] [facility] [address] [id number] [place] [address]- 0674 Aug, [facility] [place] [facility] [address] [id number] [place] [address]- 2316 Aug, [facility] [place] [facility] [address] [id number] [place] [address] Aug, [facility] [place] [facility] [address] [id number] [place] [address] Aug, [facility] [place] [facility] [address] [id number] [place] [address] Jul, [facility] [place] [facility] [address] [id number] [place] [address] Jul, [facility] [place] [facility] [address] [id number] [place] [address] June, [facility] [place] [facility] [address] [id number] [place] [address] June, [facility] [place] [facility] [address] [id number] [place] [address] June, [facility] [address] [id number] [place] [address] 08 May, 2012 [facility] [address] [id number] [place] [address] May, [facility] [address] [id number] [place] [address] May, [facility] [address] [id number] [place] [address] 18 Apr, 2012 [facility] [address] [id number] [place] [address] 18 Apr, 2012 [facility] [address] [facility] [id number] [place] [address] 15 Apr, 2012 [facility] [address] [facility] [id number] [place] [address] 14 Apr, 2012 [facility] [address] [facility] [id number] [place] [address] 12 Apr, 2012 [facility] [address] [id number] [place] [address] 27 Apr, 2012 [facility] [address] [id number] [place] [address] Apr, [facility] [address] [facility] [id number] [place] [address] Apr, [facility] [address] [facility] [id number] [place] [address] Apr, [facility] [place] [facility] [address] [id number] [place] [address] 20 Apr, 2012 [facility] [address] [facility] [id number] [place] [address] 19 Apr, 2012 [facility] [address] [facility] [id number] [place] [address]- [address] 07 Apr, 2012 [facility] [address] [id number] [place] [address] 16[address] 07 Apr, 2012 [facility] [place] [facility] [address] [id number] [place] [address] Mar, [facility] [place] [facility] [address] [id number] [place] [address] Mar, [facility] [place] [facility] [address] [id number] [place] [address] Mar, [facility] [place] [facility] [address] [id number] [place] [address] Mar, [facility] [place] [facility] [address] [id number] [place] [address]- [address] Mar, [facility] [place] [facility] [address] [id number] [place] [address]- 1067 Jan, [facility] [place] [facility] [address] [id number] [place] [address]- [address] 28 Jan, 2012 [facility] [place] [facility] [address] [id number] [place] [address]- [address] Jan, [facility] [place] [facility] [address] [id number] [place] [address]- 6260 22 Jan, 2012 [facility] [place] [facility] [address] [id number] [place] [address]- 6958 14 Jan, 2012 [facility] [place] [facility] [address] [id number] [place] [address]- 7732 13 Jan, 2012 [facility] [place] [facility] [address] [id number] [place] [address]- 2520 13 Jan, 2012 [facility] [place] [facility] [address] [id number] [place] [address]- 0[address] 11 Jan, 2012 [facility] [place] [facility] [address] [id number] [place] [address]- 89[address] 06 Jan, 2012 [facility] [place] [facility] [address] [id number] [place] [address]- 8737 06 Jan, 2012 [facility] [address] [id number] [place] [address]- [address] 04 Jan, 2012 [facility] [place] [facility] [address] [id number] [place] [address]- [address] Jan, [facility] [address] [id number] [place] [address]- 267[address] 04 Jan, 2012 [facility] [place] [facility] [address] [id number] [place] [address]- 7998 Jan, [facility] [address] [id number] [place] [address]- 7[address] 26 Jan, 2012 [facility] [place] [facility] [address] [id number] [place] [address]- 8349 26 Jan, 2012 [facility] [place] [facility] [address] [id number] [place] [address]- 8130 19 Jan, 2012 [facility] [address] [id number] [place] [address]- 7067 19 Jan, 2012 [facility] [place] [facility] [address] [facility] [id number] [place] [address]- 0981 15 Jan, 2012 [facility] [address] [facility] [id number] [place] [address]- 97[address] 15 Jan, 2012 [facility] [place] [facility] [address] [id number] [place] [address]- 2847 14 Jan, 2012 [facility] [place] [facility] [address] [id number] [place] [address]- 2550 14 Jan, 2012 [facility] [place] [facility] [address] [id number] [place] [address]- 2894 14 Jan, 2012 [facility] [place] [facility] [address] [facility] [id number] [place] [address]- 8900 14 Jan, 2012 [facility] [place] [facility] [address] [id number] [place] [address]- 45[address] Dec, [facility] [place] [facility] [address] [id number] [place] [address]- [address] Dec, [facility] [place] [facility] [address] [id number] [place] [address]- 9196 Nov, [facility] [place] [facility] [address] [id number] [place] [address]- 3686 16 Dec, 2011 [facility] [place] [facility] [address] [id number] [place] [address]- 0901 13 Nov, 2011 [facility] [place] [facility] [address] [id number] [place] [address]- 7086 13 Nov, 2011 [facility] [place] [facility] [address] [id number] [place] [address]- 7159 Oct, [facility] [place] [facility] [address] [id number] [place] [address]- 8545 Oct, [facility] [place] [facility] [address] [id number] [place] [address]- [address] Sep, [facility] [place] [facility] [address] [address] [id number] [place] [address] Sep, [facility] [place] [facility] [address] [id number] [place] [address] Aug, [facility] [place] [facility] [address] [id number] [place] [address] Aug, [facility] [place] [facility] [address] [id number], [place] [address] Aug, [facility] [place] [facility] [address] [id number] [place] [address] Aug, [facility] [place] [facility] [address] [id number] [place] [address] June, [facility] [place] [facility] [address] [id number], [place] [address] June, [facility] [place] [facility] [address] [id number], [place] [address] May, [facility] [address] [id number] [place] [address] Apr, [facility] [place] [facility] [address] [id number] [place] [address] Apr, [facility] [address] [id number] [place] [address] Apr, [facility] [address] [id number] [place] [address] Apr, [facility] [address] [id number] [place] [address] Apr, [facility] [place] [facility] [address] [id number] [place] [address] Apr, [facility] [address] [facility] [id number] [place] [address] Mar, [facility] [address] [id number] [place] [address] Mar, [facility] [address] [id number] [place] [address] Mar, [facility] [address] [facility] [id number] [place] [address] Jan, [facility] [address] [id number] [place] [address] Jan, [facility] [place] [facility] [address] [id number] [place] [address] Jan, [facility] [place] [facility] [address] [id number] [place] [address] Jan, [facility] [place] [facility] [address] [id number] [place] [address] Jan, [facility] [place] [facility] [address] [facility] [id number] [place] [address] Jan, [facility] [place] [facility] [address] [id number] [place] [address] Jan, [facility] [place] [facility] [address] [id number] [place] [address] Dec, [facility] [place] [facility] [address] [id number] [place] [address] Dec, [facility] [place] [facility] [address] [id number] [place] [address] Nov, [facility] [place] [facility] [address] [id number] [place] [address] Nov, [facility] [place] [facility] [address] [id number] [place] [address] Nov, [facility] [place] [facility] [address] [id number] [place] [address] Nov, [facility] [place] [facility] [address] [id number] [place] [address] Oct, [facility] [place] [facility] [address] [id number] [place] [address] Sep, [facility] [place] [facility] [address] [id number] [place] [address] Mar, [facility] [place] [facility] [address] [id number] [place] [address] Jan, [facility] [place] [facility] [address] [id number] [place] [address] 2004 Dec, [facility] [place] [facility] [address] [id number] [place] [address] Dec, [facility] [place] [facility] [address] [id number] [place] [address] Dec, [facility] [place] [facility] [address] [id number] [place] [address] Dec, [facility] [place] [facility] [address] [id number] [place] [address] 26 Nov, 2009 [facility] [address] [id number] [place] [address] 15 Nov, 2009 [facility] [place] [facility] [address] [id number], [place] [address] 14 Nov, 2009 [facility] [place] [facility] [address] [facility] [id number] [place] [address]- [address] 14 Nov, 2009 [facility] [place] [facility] [address] [id number], [place] [address] 13 Oct, 2009 [facility] [place] [facility] [address] [id number] [place] [address] 17 Jul, 2009 [facility] [place] [facility] [address] [id number], [place] [address] 17 Jun, 2009 [facility] [place] [facility] [address] [id number] [place] [address] June, [facility] [place] [facility] [address] [id number], [place] [address] 17 Apr, 2009 [facility] [place] [facility] [address] [id number], [place] [address] Mar, [facility] [place] [facility] [address] [id number], [place] [address] 24 Jan, 2009 [facility] [place] [facility] [address] [id number], [place] [address] Jan, [facility] [place] [facility] [address] [id number], [place] [address] 27 Dec, 2008 [facility] [place] [facility] [address] [id number], [place] [address] 25 Dec, 2008 [facility] [place] [facility] [address] [facility] [id number], [place] [address] 13 Dec, 2008 [facility] [place] [facility] [address] [facility] [id number], [place] [address] 13 Dec, 2008 [facility] [place] [facility] [address] [facility] [id number] [place] [address] Nov, [facility] [address] [facility] [id number] [place] [address] Jul, [facility] [address] [facility] [id number] [place] [address] June, IMMUNIZATIONS No Known Immunizations SOCIAL HISTORY Never Assessed REASON FOR VISIT Medication Request PLAN OF CARE VITAL SIGNS MEDICATIONS Medication Instructions Dosage Frequency Start Date End Date Duration Status Clobetasol Propionate 0.05 % Externally Twice a day 1 application to affected area 12h 31 Sep, 2014 Active RESULTS No Results PROCEDURES No Known procedures INSTRUCTIONS MEDICATIONS ADMINISTERED No Known Medications MEDICAL (GENERAL) HISTORY Type Description Date Medical History hypertension Medical History sleep apnea-did not tolerate CPAP Medical History oxygen dependent at [facility] Medical History colonic polyps Medical History [...]
--- OUTSIDE RECORDS SUMMARY | 2018-02-26 19:31 | XMS REPORT ---
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 Name Role Phone GRAHAMELLIOTT HANNAHANY Unavailable PROBLEMS Type Condition ICD9-CM Code [id number] Code Onset Dates Condition Status SNOMED Code Problem Pulmonary asbestosis J61 Active 11279671 Problem Left ventricular diastolic dysfunction I51.9 Active 913788010 Problem Chronic gout, unspecified cause, unspecified site [id number].[id number] Active 05541732 Problem Renal cyst, left N28.1 Active 98124382 Problem History of weight loss surgery Z98.84 Active 904278249 Problem Nocturnal hypoxia G47.34 Active 085877231 Problem Obstructive sleep apnea syndrome G47.33 Active 97664077 Problem History of diverticulitis Z87.19 Active [id number] Problem Allergic rhinitis, unspecified allergic rhinitis type J30.9 Active 44219153 Problem Erectile dysfunction due to diseases classified elsewhere N52.1 Active 549660812 Problem Acute right-sided low back pain with right-sided sciatica M54.41 Active 587746319 Problem Psoriasis L40.9 Active 4517350 Problem Essential hypertension I10 Active 68994613 Problem Nephrolithiasis N20.0 Active 39793145 Problem Chronic prescription opiate use Z79.899 Active 177476754 Problem 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 Active 48010142 Problem Benign prostatic hyperplasia, presence of lower urinary tract symptoms unspecified, unspecified morphology N40.0 Active 765152723 Problem Moderate episode of recurrent major depressive disorder F33.1 Active 578651816 Problem Age-related osteoporosis without current pathological fracture M81.0 Active 66117176 Problem Low back pain M54.5 Active 781830165 Problem Anxiety F41.9 Active 85904759 Problem Urge incontinence N39.41 Active 735709832 Problem Hyperlipidemia, unspecified E78.5 Active 81874392 Problem Esophageal stricture K22.2 Active 38624710 Problem Cervicalgia M54.2 Active 2824147155244 Problem Primary insomnia F51.01 Active 633688308 ALLERGIES No Information ENCOUNTERS Encounter Location Date Diagnosis [facility] [address] [address] June, [facility] [address] 67[address]- 6365 May, Anxiety F41.9 [facility] [address] 26513- 5148 May, [facility] [address] 16935- 6[address] May, [facility] [address] 02076- 5244 Apr, Anxiety F41.9 [facility] [address] 25080- 5270 Apr, [facility] [address] 07065- 5802 Apr, Low back pain M54.5 [facility] [address] 56642- 0107 Apr, [facility] [address] 77982- 3907 Apr, [facility] [id number] [place] [address] 68514- 3158 Apr, Anxiety F41.9 [facility] [id number] [place] [address] 50165- 0867 Apr, Right groin pain R10.31 [facility] [address] 9[address]10- 6910 Mar, [facility] [id number] [place] [address] 84423- 8719 Mar, [facility] [address] 82216- 2474 Mar, Anxiety F41.9 [facility] [id number] [place] [address] 69690- 6624 Mar, Low back pain M54.5 [facility] [id number] [place] [address] 01963- 6387 Mar, Right groin pain R10.31 ; Low back pain M54.5 and BMI 45.0- 49.9, adult Z68.42 [facility] [id number] [place] [address] 80766- 6701 Mar, [facility] [id number] [place] [address] 39582- 1523 Mar, [facility] [id number] [place] [address] 47444- 3430 Mar, [facility] [id number] [place] [address] 65995 -4495 Mar, [facility] [id number] [place] [address] 64039 -2479 Mar, Cough R05 ; Pneumonia of right lower lobe due to infectious organism J18.1 and Abnormal chest x-ray R93.8 [facility] [id number] [place] [address] 37968- 5894 Mar, [facility] [id number] [place] [address] 63403- 3605 Mar, [facility] [id number] [place] [address] 21633- 9537 Jan, Anxiety F41.9 [facility] [id number] [place] [address] 94088- 3592 Jan, [facility] [id number] [place] [address] 98244- 9703 Jan, Moderate episode of recurrent major depressive disorder F33.1 [facility] [id number] [place] [address] 74188- 5553 Jan, Subacromial bursitis of right shoulder joint M75.51 ; Shortness of breath on exertion R06.02 and BMI 45.0-49.9, adult Z68.42 [facility] [id number] [place] [address] 65634- 2670 Dec, Anxiety F41.9 [facility] [id number] [place] [address] 62214- 6349 Dec, [facility] [id number] [place] [address] 63324- 5339 Dec, Low back pain M54.5 [facility] [id number] [place] [address] 62827- 9783 Oct, Low back pain M54.5 [facility] [id number] [place] [address] 23187- 9291 Sep, [facility] [id number] [place] [address] 45112- 0891 Sep, Erectile dysfunction due to diseases classified elsewhere N52.1 [facility] [id number] [place] [address] 04731- 0252 Sep, Erectile dysfunction due to diseases classified elsewhere N52.1 [facility] [id number] [place] [address] 94806- 9911 Sep, [facility] [id number] [place] [address] 31226- 3941 Sep, Erectile dysfunction due to diseases classified elsewhere N52.1 [facility] [id number] [place] [address] 22669- 5559 Sep, Low back pain M54.5 and Anxiety F41.9 [facility] [id number] [place] [address] 91832 -7162 Aug, Acute allergic rhinitis J30.9 [facility] [id number] [place] [address] 04194- 9864 Aug, [facility] [id number] [place] [address] 67132- 2315 Aug, Anxiety F41.9 [facility] [id number] [place] [address] 86984- 7716 Jul, Low back pain M54.5 ; Chronic prescription opiate use Z79.899 and Essential hypertension I10 [facility] [id number] [place] [address] 39202 2546 Jul, Anxiety F41.9 and Low back pain M54.5 [facility] [id number] [place] [address] 79494- 1766 June, [facility] [address] 03449- 7916 June, Anxiety F41.9 [facility] [address] 26786- 4033 May, Low back pain M54.5 [facility] [id number] [place] [address] 49721- 7655 May, [facility] [id number] [place] [address] 56391- 9177 May, Anxiety F41.9 [facility] [id number] [place] [address] 75149- 2566 Apr, [facility] [id number] [place] [address] 03653 2549 Apr, Low back pain M54.5 [facility] [id number] [place] [address] 42612- 5336 Apr, Moderate episode of recurrent major depressive disorder F33.1 [facility] [id number] [place] [address] 31161- 4046 Apr, Anxiety F41.9 [facility] [id number] [place] [address] 21727- 2047 Apr, Low back pain M54.5 [facility] [id number] [place] [address] 67087- 9171 15 Apr, 2016 Elevated alkaline phosphatase level R74.8 [facility] [id number] [place] [address] 72139- 5276 10 Apr, 2016 Alkaline phosphatase elevation R74.8 [facility] [address] 09886- 6427 06 Apr, 2016 Anxiety F41.9 [facility] [id number] [place] [address] 92730- 7797 Apr, Low back pain M54.5 [facility] [id number] [place] [address] 63344- 8121 03 Apr, 2016 Essential hypertension I10 ; History of weight loss surgery Z98.84 ; History of herpes genitalis Z86.19 ; Encounter for hepatitis C screening test for low risk patient Z11.59 ; Hyperlipidemia, unspecified E78.5 ; Benign prostatic hyperplasia, presence of lower urinary tract symptoms unspecified, unspecified morphology N40.0 and Exposure to STD Z20.2 [facility] [id number] [place] [address] 83136- 4466 Apr, [facility] [id number] [place] [address] 99287- 2232 Mar, [facility] [id number] [place] [address] 05033- 5776 Mar, [facility] [id number] [place] [address] 75980- 0380 Mar, [facility] [id number] [place] [address] 31182- 0836 Mar, Acute right-sided low back pain with right-sided sciatica M54.41 [facility] [id number] [place] [address] 41298- 9322 Mar, Low back pain M54.5 [facility] [id number] [place] [address] 80146 -3877 Mar, Muscle strain of chest wall, initial encounter S29.011A ; Muscle strain of right thigh, initial encounter S76.911A and Acute non- recurrent maxillary sinusitis J01.00 [facility] [id number] [place] [address] 86213- 1478 Mar, Benign prostatic hyperplasia, presence of lower urinary tract symptoms unspecified, unspecified morphology N40.0 [facility] [id number] [place] [address] 16380- 0885 Jan, Low back pain M54.5 [facility] [address] 19814- 3098 Jan, Low back pain M54.5 ; Essential hypertension I10 ; Hyperlipidemia, unspecified E78.5 ; Anxiety F41.9 ; Moderate episode of recurrent major depressive disorder F33.1 ; Primary insomnia F51.01 ; Exposure to STD Z20.2 ; Encounter for hepatitis C screening test for low risk patient Z11.59 and History of herpes genitalis Z86.19 [facility] [id number] [place] [address] 06119- 4113 Dec, [facility] [id number] [place] [address] 35390- 6394 Nov, [facility] [id number] [place] [address] 45155- 3928 Nov, Anxiety F41.9 ; Cervicalgia M54.2 ; Moderate episode of recurrent major depressive disorder F33.1 and Encounter for immunization Z23 [facility] [id number] [place] [address] 80321- 6298 Oct, [facility] [address] 78932- 2943 Oct, [facility] [id number] [place] [address] 45895- 1793 16 Nov, 2015 [facility] [address] [address]- 5732 Oct, [facility] [id number] [place] [address] 09724- 4862 Sep, [facility] [address] [address]- 0709 Aug, Low back pain M54.5 ; Anxiety F41.9 ; Primary insomnia F51.01 and Chronic prescription opiate use Z79.899 [facility] [id number] [address]- 1889 Jul, [facility] [id number] [place] [address] 04584- 0750 Jul, [facility] [id number] [place] [address] 36431- 5404 Jul, [facility] [id number] [place] [address] 65500- 8509 Jul, [facility] [id number] [place] [address] 98055- 5667 Jul, [facility] [id number] [place] [address] 01401- 5267 June, [facility] [address] [address]- 0381 June, [facility] [id number] [place] [address] 72548- 6708 June, [facility] [address] [address]- 3416 June, [facility] [id number] [place] [address] 10439- 4681 May, Preoperative cardiovascular examination Z01.810 [facility] [address] [place] [address]- 2840 May, [facility] [id number] [place] [address] 60783- 6124 Apr, [facility] [address] [address]- 5519 31 May, 2015 Osteoarthritis of right knee M17.9 [facility] [address] [address]- 8249 30 May, 2015 [facility] [address] [address]- 1633 16 May, 2015 [facility] [address] [address]- 8749 11 May, 2015 [facility] [id number] [place] [address] 59061- 8972 09 May, 2015 [facility] [address] [address]- 1092 08 May, 2015 History of excessive cerumen Z78.9 ; Obstructive sleep apnea syndrome G47.33 ; History of diverticulitis Z87.19 and Nephrolithiasis N20.0 [facility] [address], [place] [address]- 6970 Apr, [facility] [address] [address] -1202 Apr, Abdominal pain R10.9 [facility] [address] [address]- 1003 Apr, [facility] [address] [address]- 5802 04 Apr, 2015 Osteoarthritis of right knee M17.9 [facility] [address] [address]- 4812 Mar, [facility] [address] [address]- 3068 Mar, [facility] [address] [address]- 9072 Mar, [facility] [id number] [place] [address] 74101- 5476 Mar, [facility] [id number] [place] [address] 99277 -2847 Mar, Pyelonephritis N12 ; Left-sided thoracic back pain M54.6 ; Hematuria, unspecified R31.9 and Kidney stone N20.0 [facility] [id number] [place] [address] 97955- 1188 Mar, History of weight loss surgery Z98.84 [facility] [id number] [place] [address] 96674- 4570 Mar, History of weight loss surgery Z98.84 and Hyperlipidemia, unspecified E78.5 [facility] [id number] [place] [address] 55310- 6073 Mar, Low back pain M54.5 ; Chronic prescription opiate use Z79.899 ; Hyperlipidemia, unspecified E78.5 ; Spasm of back muscles M62.830 and History of weight loss surgery Z98.84 [facility] [id number] [place] [address] 37238- 8252 Jan, [facility] [id number] [place] [address] 06716- 4692 Jan, [facility] [id number] [place] [address] 85577- 8869 Jan, [facility] [id number] [place] [address] 62798- 7893 Dec, [facility] [id number] [place] [address] 87630- 7999 Dec, [facility] [id number] [place] [address] 65612- 5294 Dec, [facility] [id number] [place] [address] 38567- 5580 Nov, [facility] [id number] [place] [address] 07496- 2683 Nov, Obstructive sleep apnea syndrome G47.33 and Pharyngoesophageal dysphagia R13.14 [facility] [id number] [place] [address] 02137- 3175 Nov, [facility] [id number] [place] [address] 48090- 9545 Nov, [facility] [id number] [place] [address] 79534- 4872 Nov, [facility] [id number] [place] [address] [id number] 30 Oct, 2014 Dental examination V72.2 [facility] [id number] [place] [address] 64412- 4795 Oct, [facility] [id number] [place] [address] 03150- 7942 Oct, 2014 [facility] [id number] [place] [address] 30139- 2209 Oct, [facility] [id number] [place] [address] 87848- 1930 Oct, [facility] [id number] [place] [address] 42024- 2311 Oct, BPH (benign prostatic hyperplasia) 600.00 and Urinary frequency 788.41 [facility] [id number] [place] [address] 73007- 1253 Oct, [facility] [id number] [place] [address] 18463- 6872 Oct, [facility] [id number] [place] [address] 25678- 0996 Oct, [facility] [id number] [place] [address] 29631- 0874 Sep, Cerumen impaction 380.4 ; Cerumen debris on tympanic membrane 380.4 ; Psoriasis 696.1 and MICKY (secretory otitis media) 381.4 [facility] [id number] [id number] Sep, Dental examination V72.2 [facility] [id number] [place] [address] 40516- 5712 Sep, Fatigue 780.79 ; Irritable bowel syndrome 564.1 ; Overweight 278.02 ; Poor sleep V69.4 ; Shaking spells 781.0 and Broken tooth 873.63 [facility] [id number] [place] [address] 09016- 5298 Sep, [facility] [id number] [place] [address] 62009- 5474 Sep, [facility] [id number] [place] [address] 54989- 3415 Aug, [facility] [id number] [place] [address] 50995- 6361 Jul, [facility] [id number] [place] [address] 29317- 6129 Jul, [facility] [id number] [place] [address] 14580- 7167 Jul, [facility] [id number] [place] [address] 04970- 9442 Jul, [facility] [id number] [place] [address] 24019- 5376 June, Arthritis of knee, right 716.96 [facility] [address], [place] [address]- 4783 June, [facility] [id number] [place] [address] 70040- 4140 June, Elevated blood pressure reading without diagnosis of hypertension 796.2 [facility] [address], [place] [address]- 7440 June, [facility] [id number] [address]- 8086 June, [facility] [address] [id number] [place] [address]- 8784 June, [facility] [place] [facility] [address] [id number] [place] [address]- 3176 June, [facility] [address] [id number] [place] [address]- 4469 May, [facility] [place] [facility] [address] [id number] [place] [address]- 1121 May, [facility] [place] [facility] [address] [id number] [place] [address]- 5917 Apr, [facility] [place] [facility] [address] [id number] [place] [address]- 3819 Apr, [facility] [place] [facility] [address] [id number] [place] [address]- 4470 Apr, [facility] [place] [facility] [address] [id number] [place] [address]- 1447 Apr, [facility] [place] [facility] [address] [id number] [place] [address]- 1527 Apr, [facility] [address] [id number] [place] [address]- 9087 Apr, [facility] [place] [facility] [address] [id number] [place] [address]- 0816 Apr, [facility] [place] [facility] [address] [id number] [place] [address]- 7717 Apr, [facility] [place] [facility] [address] [id number] [place] [address]- 3126 Apr, [facility] [place] [facility] [address] [id number] [place] [address]- 2546 Apr, [facility] [place] [facility] [address] [id number] [place] [address]- 1653 Apr, [facility] [place] [facility] [address] [id number] [place] [address]- 7772 Apr, 2014 [facility] [place] [facility] [address] [id number] [place] [address]- 7426 24 Apr, 2014 [facility] [place] [facility] [address] [facility] [id number] [place] [address]- 4619 24 Apr, 2014 [facility] [place] [facility] [address] [facility] [id number] [place] [address]- 8907 Apr, 2014 [facility] [place] [facility] [address] [id number] [place] [address]- 9904 Apr, 2014 [facility] [place] [facility] [address] [facility] [id number] [place] [address]- 9365 20 Apr, 2014 [facility] [place] [facility] [address] [facility] [id number] [place] [address] 20 Apr, 2014 [facility] [place] [facility] [address] [facility] [id number] [place] [address] 18 Apr, 2014 [facility] [place] [facility] [address] [facility] [id number] [place] [address] 18 Apr, 2014 [facility] [place] [facility] [address] [facility] [id number] [place] [address] 13 Apr, 2014 [facility] [place] [facility] [address] [facility] [id number] [place] [address] 13 Apr, 2014 [facility] [place] [facility] [address] [facility] [id number] [place] [address] 13 Apr, 2014 [facility] [place] [facility] [address] [facility] [id number] [place] [address] 13 Apr, 2014 [facility] [place] [facility] [address] [facility] [id number] [place] [address] 12 Apr, 2014 [facility] [place] [facility] [address] [facility] [id number] [place] [address] 12 Apr, 2014 [facility] [place] [facility] [address] [id number] [place] [address] Apr, 2014 [facility] [place] [facility] [address] [id number] [place] [address] Apr, 2014 [facility] [place] [facility] [address] [id number] [place] [address] Apr, 2014 [facility] [place] [facility] [address] [id number] [place] [address] Apr, 2014 [facility] [place] [facility] [address] [id number] [place] [address] Apr, 2014 [facility] [place] [facility] [address] [id number] [place] [address] Apr, 2014 [facility] [place] [facility] [address] [id number] [place] [address] Apr, 2014 [facility] [place] [facility] [address] [id number] [place] [address] Mar, [facility] [place] [facility] [address] [id number] [place] [address] Mar, [facility] [place] [facility] [address] [id number] [place] [address] Mar, [facility] [place] [facility] [address] [id number] [place] [address] 8663 Mar, [facility] [place] [facility] [address] [id number], [place] [address] Mar, [facility] [place] [facility] [address] [id number] [place] [address] 1507 Mar, [facility] [place] [facility] [address] [id number] [place] [address] 4209 Mar, [facility] [place] [facility] [address] [id number] [place] [address]- 7678 Mar, [facility] [place] [facility] [address] [id number] [place] [address]- 4568 Mar, [facility] [place] [facility] [address] [id number] [place] [address] 2324 Mar, [facility] [place] [facility] [address] [id number] [place] [address]- 6869 Jan, [facility] [place] [facility] [address] [id number] [place] [address] Jan, [facility] [place] [facility] [address] [id number] [place] [address]- 0185 Jan, [facility] [place] [facility] [address] [id number] [place] [address] Jan, [facility] [place] [facility] [address] [id number] [place] [address]- 5298 Jan, [facility] [place] [facility] [address] [id number] [place] [address]- 2407 Jan, [facility] [place] [facility] [address] [id number] [place] [address]- 7292 Jan, [facility] [place] [facility] [address] [id number] [place] [address]- 7335 Jan, [facility] [place] [facility] [address] [facility] [id number] [place] [address]- 7064 Jan, [facility] [place] [facility] [address] [id number] [place] [address]- 7713 Jan, [facility] [place] [facility] [address] [id number] [place] [address]- 8865 Jan, [facility] [place] [facility] [address] [id number] [place] [address]- 4380 Jan, [facility] [place] [facility] [address] [id number] [place] [address]- 8274 Dec, [facility] [place] [facility] [address] [id number] [place] [address]- 9541 Dec, [facility] [place] [facility] [address] [id number] [place] [address]- 8798 Dec, [facility] [place] [facility] [address] [id number] [place] [address]- 5580 Dec, [facility] [place] [facility] [address] [id number] [place] [address]- 0455 Dec, [facility] [place] [facility] [address] [id number] [place] [address]- 4989 Dec, [facility] [place] [facility] [address] [id number] [place] [address]- 1917 Dec, [facility] [place] [facility] [address] [id number] [place] [address]- 3067 Dec, [facility] [place] [facility] [address] [id number] [place] [address]- 0562 Dec, [facility] [place] [facility] [address] [id number] [place] [address]- 9550 Dec, [facility] [place] [facility] [address] [id number] [place] [address]- 9669 Nov, [facility] [place] [facility] [address] [id number] [place] [address]- 8130 Nov, [facility] [place] [facility] [address] [id number] [place] [address]- 6356 Nov, [facility] [place] [facility] [address] [id number] [place] [address]- 4203 Nov, [facility] [place] [facility] [address] [id number] [place] [address]- 7262 Nov, [facility] [place] [facility] [address] [id number] [place] [address]- 7268 Nov, [facility] [place] [facility] [address] [id number] [place] [address]- 8232 Nov, [facility] [place] [facility] [address] [id number] [place] [address]- 1979 Nov, [facility] [place] [facility] [address] [id number] [place] [address]- 9112 Nov, [facility] [place] [facility] [address] [id number] [place] [address]- 6723 Nov, [facility] [place] [facility] [address] [id number] [place] [address] Nov, [facility] [place] [facility] [address] [id number] [place] [address]- 6479 17 Nov, 2013 [facility] [place] [facility] [address] [id number] [place] [address]- 3472 Nov, [facility] [place] [facility] [address] [id number] [place] [address]- 4974 14 Nov, 2013 [facility] [place] [facility] [address] [id number] [place] [address]- 7938 10 Nov, 2013 [facility] [place] [facility] [address] [id number] [place] [address]- 1966 10 Nov, 2013 [facility] [place] [facility] [address] [id number] [place] [address]- 8796 Nov, [facility] [place] [facility] [address] [id number] [place] [address]- 6616 Nov, [facility] [place] [facility] [address] [id number], [place] [address]- 9647 Nov, [facility] [place] [facility] [address] [id number], [place] [address]- 8996 Nov, [facility] [place] [facility] [address] [id number] [place] [address]- 0593 Oct, [facility] [place] [facility] [address] [id number] [place] [address] Oct, [facility] [place] [facility] [address] [id number] [place] [address]- 4213 19 Oct, 2013 [facility] [place] [facility] [address] [id number] [place] [address]- 4949 19 Oct, 2013 [facility] [place] [facility] [address] [id number] [place] [address]- 8146 Oct, [facility] [place] [facility] [address] [id number] [place] [address]- 6826 Oct, 2013 [facility] [place] [facility] [address] [id number] [place] [address]- 4194 Oct, 2013 [facility] [place] [facility] [address] [id number] [place] [address]- 2541 Oct, 2013 [facility] [place] [facility] [address] [id number] [place] [address]- 8464 Oct, [facility] [place] [facility] [address] [id number] [place] [address]- 7931 Oct, [facility] [place] [facility] [address] [id number] [place] [address]- 8055 Sep, [facility] [place] [facility] [address] [id number] [place] [address]- 6854 Sep, [facility] [place] [facility] [address] [id number] [place] [address]- 4552 Sep, [facility] [place] [facility] [address] [id number] [place] [address]- 7015 Sep, [facility] [place] [facility] [address] [id number] [place] [address]- 1500 Sep, [facility] [place] [facility] [address] [id number] [place] [address]- 6183 Sep, [facility] [place] [facility] [address] [id number] [place] [address]- 2108 Sep, [facility] [place] [facility] [address] [id number] [place] [address]- 4358 Sep, [facility] [place] [facility] [address] [id number] [place] [address]- 8196 Sep, [facility] [place] [facility] [address] [id number] [place] [address]- 2376 Sep, [facility] [place] [facility] [address] [id number] [place] [address]- 1946 Sep, [facility] [place] [facility] [address] [id number] [place] [address]- 1747 Sep, [facility] [place] [facility] [address] [id number] [place] [address]- 3969 Sep, [facility] [place] [facility] [address] [id number] [place] [address]- 3500 Sep, [facility] [place] [facility] [address] [id number] [place] [address]- 0986 Sep, [facility] [place] [facility] [address] [id number] [place] [address]- 2707 Sep, [facility] [place] [facility] [address] [id number] [place] [address]- 8203 Sep, [facility] [place] [facility] [address] [id number] [place] [address]- 7142 Sep, [facility] [place] [facility] [address] [id number] [place] [address]- 4872 Sep, [facility] [place] [facility] [address] [id number] [place] [address]- 2705 Sep, [facility] [place] [facility] [address] [id number] [place] [address]- 1604 Sep, [facility] [place] [facility] [address] [id number] [place] [address]- 9453 Sep, [facility] [place] [facility] [address] [id number] [place] [address]- 5824 Sep, [facility] [place] [facility] [address] [id number] [place] [address]- 5936 Sep, [facility] [place] [facility] [address] [id number] [place] [address]- 4030 Sep, [facility] [place] [facility] [address] [id number] [place] [address]- 0083 Aug, [facility] [place] [facility] [address] [id number] [place] [address]- 6596 Aug, [facility] [place] [facility] [address] [id number] [place] [address]- 6198 Aug, [facility] [place] [facility] [address] [id number] [place] [address]- 5061 Aug, [facility] [place] [facility] [address] [id number] [place] [address]- 9625 Aug, [facility] [place] [facility] [address] [id number] [place] [address]- 0922 Aug, [facility] [place] [facility] [address] [id number] [place] [address]- 5862 Aug, [facility] [place] [facility] [address] [id number] [place] [address]- 4774 Aug, [facility] [place] [facility] [address] [id number] [place] [address]- 7885 Aug, [facility] [place] [facility] [address] [id number] [place] [address]- 7745 Aug, [facility] [place] [facility] [address] [id number] [place] [address]- 3854 Aug, [facility] [place] [facility] [address] [id number] [place] [address]- 0331 Aug, [facility] [place] [facility] [address] [id number] [place] [address]- 8128 Aug, [facility] [place] [facility] [address] [id number] [place] [address]- 2372 Jul, [facility] [place] [facility] [address] [id number] [place] [address]- 6962 Jul, [facility] [place] [facility] [address] [id number] [place] [address]- 1256 Jul, [facility] [place] [facility] [address] [id number] [place] [address]- 6911 Jul, [facility] [place] [facility] [address] [id number] [place] [address]- 4435 Jul, [facility] [place] [facility] [address] [id number] [place] [address]- 2791 Jul, [facility] [place] [facility] [address] [id number] [place] [address]- 5724 Jul, [facility] [place] [facility] [address] [id number] [place] [address]- 2711 June, [facility] [place] [facility] [address] [id number] [place] [address]- 0330 June, [facility] [place] [facility] [address] [id number] [place] [address]- 4211 June, [facility] [place] [facility] [address] [id number] [place] [address]- 4311 June, [facility] [place] [facility] [address] [id number] [place] [address]- 5829 May, [facility] [place] [facility] [address] [id number] [place] [address]- 8895 May, [facility] [place] [facility] [address] [id number] [place] [address]- 4106 May, [facility] [place] [facility] [address] [id number] [place] [address]- 0205 May, [facility] [place] [facility] [address] [id number] [place] [address]- 6291 May, [facility] [place] [facility] [address] [id number] [place] [address]- 1196 May, [facility] [place] [facility] [address] [id number] [place] [address]- 6278 May, [facility] [place] [facility] [address] [id number] [place] 9607 May, [facility] [place] [facility] [address] [id number] [place] [address]- 1286 May, [facility] [place] [facility] [address] [id number] [place] [address]- 6225 May, [facility] [place] [facility] [address] [id number] [place] [address]- 2512 Apr, [facility] [place] [facility] [address] [id number] [place]498 Apr, [facility] [place] [facility] [address] [id number] [place] [address]- 5848 Apr, [facility] [place] [facility] [address] [id number] [address]- 4585 Apr, [facility] [place] [facility] [address] [id number] [place] [address]- 1399 Apr, [facility] [place] [facility] [address] [id number] [place] [address]- 1091 Apr, [facility] [place] [facility] [address] [facility] [id number] [place] [address]- 7797 Apr, [facility] [place] [facility] [address] [id number] [place] [address]- 5726 Apr, [facility] [place] [facility] [address] [id number] [place] [address]- 7054 Apr, [facility] [place] [facility] [address] [id number] [place] [address]- 1920 Apr, [facility] [place] [facility] [address] [facility] [id number] [place] [address]- 3603 Mar, [facility] [place] [facility] [address] [id number] [place] [address]- 4689 Mar, [facility] [place] [facility] [address] [id number] [place] [address]- 6082 Mar, [facility] [address] [id number] [place] [address]- 2702 Mar, [facility] [address] [id number] [place] [address]- 3503 Mar, [facility] [address] [id number] [place] [address]- 9490 Mar, [facility] [address] [id number] [place] [address]- 2931 Jan, [facility] [address] [id number] [place] [address]- 4877 Jan, [facility] [address] [id number] [place] [address]- 2925 Jan, [facility] [address] [id number] [place] [address]- 2124 Jan, [facility] [address] [id number] [place] [address]- 5144 Jan, [facility] [address] [id number] [place] [address]- 7424 Jan, [facility] [address] [id number] [place] [address]- 8302 Jan, [facility] [address] [id number] [place] [address]- 4410 Jan, [facility] [address] [id number] [place] [address]- 3358 Jan, [facility] [place] [facility] [address] [id number] [place] [address]- 7417 Dec, [facility] [address] [id number] [place] [address]- 2424 Dec, [facility] [address] [id number] [place] [address]- 6406 Dec, [facility] [place] [facility] [address] [id number] [place] [address]- 0738 Dec, [facility] [place] [facility] [address] [id number] [place] [address]- 3328 Dec, [facility] [place] [facility] [address] [id number] [place] [address]- 8435 Dec, [facility] [place] [facility] [address] [id number] [place] [address]- 5679 Dec, [facility] [place] [facility] [address] [id number] [place] [address]- 8258 Dec, [facility] [place] [facility] [address] [id number] [place] [address]- 4635 Dec, [facility] [place] [facility] [address] [id number] [place] [address]- 5050 Dec, [facility] [place] [facility] [address] [id number], [place] [address]- 7144 Dec, [facility] [place] [facility] [address] [id number] [place] [address]- 7465 Nov, [facility] [place] [facility] [address] [id number], [place] [address]- 3859 Nov, [facility] [place] [facility] [address] [id number], [place] [address]- 6512 Nov, [facility] [place] [facility] [address] [id number], [place] [address]- 5266 Nov, [facility] [place] [facility] [address] [id number] [place] [address]- 4093 Nov, [facility] [place] [facility] [address] [id number], [place] [address]- 0291 Oct, [facility] [place] [facility] [address] [id number], [place] [address]- 8525 Oct, [facility] [place] [facility] [address] [id number] [place] [address]- 4859 Sep, [facility] [address] [id number] [place] [address]- 2513 Aug, [facility] [address] [id number] [place] [address]- 2178 Aug, [facility] [address] [id number] [place] [address]- 2878 Aug, [facility] [address] [id number] [place] [address]- 4377 Aug, [facility] [address] [id number] [place] [address]- 8121 Jul, [facility] [address] [id number] [place] [address]- 8636 Jul, [facility] [address] [id number] [place] [address]- 9260 June, [facility] [address] [id number] [place] [address]- 9174 June, [facility] [address] [id number] [place] [address]- 7250 June, [facility] [address] [id number] [place] [address]- 7083 May, [facility] [address] [id number] [place] [address]- 2959 May, [facility] [place] [facility] [address] [id number] [place] [address]- 2543 May, [facility] [place] [facility] [address] [id number] [place] [address]- 6030 Apr, [facility] [place] [facility] [address] [id number] [place] [address] 2540 Apr, [facility] [address] [id number] [place] [address]- 2353 15 Apr, 2012 [facility] [address] [id number] [place] [address]- 6300 14 Apr, 2012 [facility] [place] [facility] [address] [id number] [place] [address]- 2176 Apr, [facility] [place] [facility] [address] [id number] [place] [address] 2546 Apr, [facility] [place] [facility] [address] [id number] [place] [address]- 2176 Apr, [facility] [place] [facility] [address] [id number] [place] [address]- 5405 Apr, [facility] [place] [facility] [address] [id number] [place] [address]- 3886 Apr, [facility] [place] [facility] [address] [id number] [place] [address]- 2946 Apr, [facility] [place] [facility] [address] [id number] [place] [address]- 0927 Apr, [facility] [place] [facility] [address] [id number] [place] [address]- 0084 Apr, [facility] [place] [facility] [address] [id number] [place] [address]- 1746 Apr, [facility] [place] [facility] [address] [id number] [place] [address]- 0962 Mar, [facility] [place] [facility] [address] [id number] [place] [address]- 1435 Mar, [facility] [place] [facility] [address] [id number] [place] [address] 2543 Mar, [facility] [place] [facility] [address] [id number] [place] [address] 25[address] Mar, [facility] [place] [facility] [address] [id number] [place] [address] Mar, [facility] [place] [facility] [address] [id number] [place] [address] Jan, [facility] [address] [id number] [place] [address] 28 Jan, 2012 [facility] [place] [facility] [address] [id number] [place] [address] Jan, [facility] [place] [facility] [address] [id number] [place] [address] Jan, [facility] [place] [facility] [address] [id number] [place] [address] 14 Jan, 2012 [facility] [address] [id number] [place] [address] 13 Jan, 2012 [facility] [place] [facility] [address] [id number] [place] [address] Jan, [facility] [address] [id number] [place] [address] Jan, [facility] [place] [facility] [address] [id number] [place] [address] Jan, [facility] [place] [facility] [address] [id number] [place] [address] Jan, [facility] [place] [facility] [address] [id number] [place] [address] Jan, [facility] [place] [facility] [address] [id number] [place] [address] Jan, [facility] [place] [facility] [address] [id number] [place] [address] Jan, [facility] [place] [facility] [address] [id number] [place] [address] Jan, [facility] [place] [facility] [address] [id number] [place] [address] Dec, [facility] [place] [facility] [address] [id number] [place] [address] Dec, [facility] [place] [facility] [address] [id number] [place] [address] 19 Jan, 2012 [facility] [place] [facility] [address] [id number] [place] [address] 19 Jan, 2012 [facility] [place] [facility] [address] [id number] [place] [address] 15 Jan, 2012 [facility] [place] [facility] [address] [id number] [place] [address] 15 Jan, 2012 [facility] [place] [facility] [address] [id number] [place] [address] 14 Jan, 2012 [facility] [place] [facility] [address] [id number] [place] [address] 14 Jan, 2012 [facility] [place] [facility] [address] [id number] [place] [address] 14 Jan, 2012 [facility] [place] [facility] [address] [id number] [place] [address]- [address] 14 Jan, 2012 [facility] [place] [facility] [address] [id number] [place] [address] 07 Jan, 2012 [facility] [place] [facility] [address] [id number] [place] [address] 07 Jan, 2012 [facility] [place] [facility] [address] [id number] [place] [address] 16 Dec, 2011 [facility] [place] [facility] [address] [id number] [place] [address] 16 Dec, 2011 [facility] [place] [facility] [address] [id number] [place] [address] 13 Nov, 2011 [facility] [place] [facility] [address] [id number] [place] [address] 2546 13 Nov, 2011 [facility] [place] [facility] [address] [id number] [place] [address] 13 Nov, 2011 [facility] [place] [facility] [address] [id number] [place] [address] Oct, [facility] [place] [facility] [address] [id number] [place] [address] Sep, [facility] [place] [facility] [address] [id number] [place] [address] Sep, [facility] [place] [facility] [address] [id number] [place] [address] 25[address] Aug, [facility] [place] [facility] [address] [id number] [place] [address] Aug, [facility] [place] [facility] [address] [id number] [place] [address] Aug, [facility] [place] [facility] [address] [id number] [place] [address] Aug, [facility] [place] [facility] [address] [id number] [place] [address] June, [facility] [place] [facility] [address] [id number] [place] [address] June, [facility] [place] [facility] [address] [id number] [place] [address] May, [facility] [place] [facility] [address] [id number] [place] [address] Apr, [facility] [place] [facility] [address] [id number] [place] [address]- [address] Apr, [facility] [place] [facility] [address] [id number] [place] [address]- [address] Apr, [facility] [place] [facility] [address] [id number] [place] [address]- [address] Apr, [facility] [place] [facility] [address] [id number] [place] [address]- [address] Apr, [facility] [place] [facility] [address] [id number] [place] [address]- [address] Apr, [facility] [place] [facility] [address] [id number] [place] [address]- [address] Mar, [facility] [address] [id number] [place] [address] Mar, [facility] [address] [id number] [place] [address] Mar, [facility] [address] [id number] [place] [address] Jan, [facility] [address] [id number] [place] [address]- [address] Jan, [facility] [address] [id number] [place] [address] Jan, [facility] [address] [id number] [place] [address] Jan, [facility] [address] [id number] [place] [address]- [address] Jan, [facility] [address] [id number] [place] [address]- [address] Jan, [facility] [address] [id number] [place] [address]- [address] Jan, [facility] [address] [id number] [place] [address] Dec, [facility] [place] [facility] [address] [id number] [place] [address]- [address]70 Dec, [facility] [address] [id number] [place] [address]- [address] Nov, [facility] [place] [facility] [address] [id number] [place] [address]- [address] Nov, [facility] [place] [facility] [address] [id number] [place] [address]- [address] Nov, [facility] [address] [id number] [place] [address]- [address] Nov, [facility] [place] [facility] [address] [id number] [place] [address]- [address] 12 Oct, 2010 [facility] [place] [facility] [address] [id number] [place] [address]- [address] Sep, [facility] [place] [facility] [address] [id number] [place] [address]- [address] Mar, [facility] [place] [facility] [address] [id number] [place] [address]- 230[address] Jan, [facility] [place] [facility] [address] [id number] [place] [address] Dec, [facility] [place] [facility] [address] [id number] [place] [address]- [address]120 Dec, [facility] [place] [facility] [address] [id number] [place] [address]- [address] Dec, [facility] [facility] [address] [id number] [place] [address] Dec, [facility] [place] [facility] [address] [id number] [place] [address] 26 Nov, 2009 [facility] [place] [facility] [address] [id number], [place] [address] 15 Nov, 2009 [facility] [place] [facility] [address] [id number] [place] [address] 14 Nov, 2009 [facility] [place] [facility] [address] [id number], [place] [address] 14 Nov, 2009 [facility] [place] [facility] [address] [id number] [place] [address] 13 Oct, 2009 [facility] [place] [facility] [address] [id number], [place] [address] Jul, [facility] [place] [facility] [address] [id number], [place] [address] June, [facility] [place] [facility] [address] [id number], [place] [address] June, [facility] [id number] [address] Apr, [facility] [id number] [place] [address] Mar, [facility] [id number], [place] [address] Jan, [facility] [id number] [place] [address] Jan, [facility] [id number] [place] [address] Dec, [facility] [id number] [place] [address] Dec, [facility] [id number] [place] [address] Dec, [facility] [id number] [place] [address] Dec, [facility] [id number] [place] [address] Nov, [facility] [id number] [address] Jul, [facility] [id number], [place] [address] June, IMMUNIZATIONS No Known Immunizations SOCIAL HISTORY Never Assessed REASON FOR VISIT Controlled Med Refill PLAN OF CARE VITAL SIGNS MEDICATIONS Medication Instructions Dosage Frequency Start Date End Date Duration Status Endocet 10-325 MG Orally every 4-6 hours 1 tablet as needed Oct, Active RESULTS No Results PROCEDURES No Known procedures INSTRUCTIONS MEDICATIONS ADMINISTERED No Known Medications MEDICAL (GENERAL) HISTORY Type Description Date Medical History hypertension Medical History sleep apnea-did not tolerate CPAP Medical History oxygen dependent at [facility] Medical History colonic polyps Medical [...]
--- OUTSIDE RECORDS SUMMARY | 2018-02-26 19:33 | XMS REPORT ---
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 Coach Name Role Phone GRAHAMELLIOTT HANNAHANY Unavailable PROBLEMS Type Condition ICD9-CM Code [id number] Code Onset Dates Condition Status SNOMED Code Problem Pulmonary asbestosis J61 Active 73745976 Problem Left ventricular diastolic dysfunction I51.9 Active 740944797 Problem Chronic gout, unspecified cause, unspecified site [id number].[id number] Active 74448690 Problem Renal cyst, left N28.1 Active 30802707 Problem History of weight loss surgery Z98.84 Active 677785084 Problem Nocturnal hypoxia G47.34 Active 997719290 Problem Obstructive sleep apnea syndrome G47.33 Active 42084648 Problem History of diverticulitis Z87.19 Active 111196331142510 Problem Allergic rhinitis, unspecified allergic rhinitis type J30.9 Active 24241961 Problem Erectile dysfunction due to diseases classified elsewhere N52.1 Active 927469932 Problem Acute right-sided low back pain with right-sided sciatica M54.41 Active 126934054 Problem Psoriasis L40.9 Active 9676188 Problem Essential hypertension I10 Active 96327271 Problem Nephrolithiasis N20.0 Active 11899757 Problem Chronic prescription opiate use Z79.899 Active 091383708 Problem 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 Active 34866979 Problem Benign prostatic hyperplasia, presence of lower urinary tract symptoms unspecified, unspecified morphology N40.0 Active 206286974 Problem Moderate episode of recurrent major depressive disorder F33.1 Active 005400291 Problem Age-related osteoporosis without current pathological fracture M81.0 Active 34067904 Problem Low back pain M54.5 Active 057250032 Problem Anxiety F41.9 Active 07311290 Problem Urge incontinence N39.41 Active 760019632 Problem Hyperlipidemia, unspecified E78.5 Active 08972089 Problem Esophageal stricture K22.2 Active 43958842 Problem Cervicalgia M54.2 Active 1453806763691 Problem Primary insomnia F51.01 Active [id number] ALLERGIES No Information ENCOUNTERS Encounter Location Date Diagnosis [facility] [address] [address] June, Anxiety F41.9 [facility] [address] [address]- 2677 June, [facility] [address] [address]- 6[address] June, Low back pain M54.5 ; Chronic prescription opiate use Z79.899 ; Candidal intertrigo B37.2 ; Urge incontinence N39.41 ; Essential hypertension I10 ; Moderate episode of recurrent major depressive disorder F33.1 ; Age-related osteoporosis without current pathological fracture M81.0 and BMI 45.0-49.9, adult Z68.42 [place] [address] [address] June, [facility] [address] [address]- [address] May, Anxiety F41.9 [place] [address] [address]- 8847 May, [facility] [address] 15165- 5038 May, [facility] [address] 26817- 2999 Apr, Anxiety F41.9 [facility] [address] [address]- 0633 Apr, [facility] [address] 00[address]- 5557 15 Apr, 2017 Low back pain M54.5 [facility] [address] 31979- 3096 02 Apr, 2017 [facility] [address] 89[address]- 3730 Apr, [facility] [address] [place] [id number] [place] [address] 36777- 5459 Apr, Anxiety F41.9 [facility] [address] [place] [id number] [place] [address] 18727- 9903 Apr, Right groin pain R10.31 [place] [address] 79[address]- 0905 Mar, [place] [address] [place] [id number] [place] [address] 54755- 2503 Mar, [place] [address] [address]- 3580 Mar, Anxiety F41.9 [place] [address] [place] [id number] [place] [address] 61732- 0629 Mar, Low back pain M54.5 [place] [address] [place] [id number] [place] [address] 05279- 3302 Mar, Right groin pain R10.31 ; Low back pain M54.5 and BMI 45.0- 49.9, adult Z68.42 [place] [address] [place] [id number] [place] [address] 97315- 4770 Mar, [place] [address] [place] [id number] [place] [address] 49667- 7686 Mar, [place] [address] [place] [id number] [place] [address] 98488- 4840 Mar, [facility] [address] [place] [id number] [place] [address] 43171 -5897 Mar, [facility] [address] [place] [id number] [place] [address] 61371 -2245 Mar, Cough R05 ; Pneumonia of right lower lobe due to infectious organism J18.1 and Abnormal chest x-ray R93.8 [place] [address] [place] [address]- 7610 Mar, [facility] [address] [place] [id number] [place] [address] 69729- 2700 Mar, [facility] [address] [place] [id number] [place] [address] 98432- 5695 Jan, Anxiety F41.9 [facility] [address] 47829- 6781 Jan, [facility] [address] [place] [id number] [place] [address] 75295- 6789 Jan, Moderate episode of recurrent major depressive disorder F33.1 [facility] [address] [place] [id number] [place] [address] 72695- 3516 Jan, Subacromial bursitis of right shoulder joint M75.51 ; Shortness of breath on exertion R06.02 and BMI 45.0-49.9, adult Z68.42 [facility] [address] [place] [id number] [place] [address] 88953- 6374 Dec, Anxiety F41.9 [facility] [address] [place] [id number] [place] [address] 44325- 9676 Dec, [facility] [address] [place] [id number] [place] [address] 75962- 1034 Dec, Low back pain M54.5 [facility] [address] [place] [id number] [place] [address] 16910- 8293 Oct, Low back pain M54.5 [facility] [address] [place] [id number] [place] [address] 90336- 8838 Sep, [facility] [address] [place] [id number] [place] [address] 07155- 7182 Sep, Erectile dysfunction due to diseases classified elsewhere N52.1 [facility] [address] [place] [id number] [place] [address] 21503- 9585 Sep, Erectile dysfunction due to diseases classified elsewhere N52.1 [place] [id number] [place] [id number] [place] [address] 95942- 3177 Sep, [facility] [address] 65409- 3157 Sep, Erectile dysfunction due to diseases classified elsewhere N52.1 [facility] [address] 33565- 0947 Sep, Low back pain M54.5 and Anxiety F41.9 [facility] [address] [address] -[address]277 Aug, Acute allergic rhinitis J30.9 [facility] [address] 70765- 3719 Aug, [facility] [address] 60402- 6273 Aug, Anxiety F41.9 [facility] [address] 66190- 1344 Jul, Low back pain M54.5 ; Chronic prescription opiate use Z79.899 and Essential hypertension I10 [facility] [address] 31054- 8824 Jul, Anxiety F41.9 and Low back pain M54.5 [facility] [address] [place] [id number] [place] [address] 68279- 0131 June, [facility] [address] [place] [id number] [place] [address] 18184- 7605 June, Anxiety F41.9 [facility] [address] [id number] [place] [address] 12325- 8820 May, Low back pain M54.5 [facility] [address] [place] [id number] [place] [address] 19721- 4442 May, [facility] [address] [place] [id number] [place] [address] 59182- 0982 May, Anxiety F41.9 [place] [address] [place] [id number] [place] [address] 13063- 1834 Apr, [place] [address] 74820- 7924 Apr, Low back pain M54.5 [place] [address] 27060- 6801 Apr, Moderate episode of recurrent major depressive disorder F33.1 [place] [address] 92046- 6238 Apr, Anxiety F41.9 [place] [address] 04918- 3415 Apr, Low back pain M54.5 [place] [address] 65971- 2226 15 Apr, 2016 Elevated alkaline phosphatase level R74.8 [place] [address] [place] [id number] [place] [address] 72710- 8778 10 Apr, 2016 Alkaline phosphatase elevation R74.8 [place] [address] 90927- 7030 06 Apr, 2016 Anxiety F41.9 [place] [address] [place] [id number] [place] [address] 29272- 4131 Apr, Low back pain M54.5 [place] [address] [place] [id number] [place] [address] 53500- 7840 Apr, History of weight loss surgery Z98.84 ; Encounter for hepatitis C screening test for low risk patient Z11.59 ; History of herpes genitalis Z86.19 ; Essential hypertension I10 ; Hyperlipidemia, unspecified E78.5 ; Exposure to STD Z20.2 and Benign prostatic hyperplasia, presence of lower urinary tract symptoms unspecified, unspecified morphology N40.0 [place] [address] [place] [id number] [place] [address] 22615- 0408 Apr, [place] [address] [address]- 8741 Mar, [facility] [id number] [place] [address] 99234- 0789 Mar, [facility] [address] [address]- 4242 Mar, [facility] [id number] [place] [address] 31001- 6616 Mar, Acute right-sided low back pain with right-sided sciatica M54.41 [place] [id number] [place] [address] 90549- 0149 Mar, Low back pain M54.5 [facility] [id number] [place] [address] 54993 -1420 13 Mar, 2016 Muscle strain of chest wall, initial encounter S29.011A ; Muscle strain of right thigh, initial encounter S76.911A and Acute non- recurrent maxillary sinusitis J01.00 [facility] [id number] [place] [address] 32432- 5154 03 Mar, 2016 Benign prostatic hyperplasia, presence of lower urinary tract symptoms unspecified, unspecified morphology N40.0 [place] [address] [address]- 9671 23 Jan, 2016 Low back pain M54.5 [facility] [id number] [place] [address] 78452- 2419 13 Jan, 2016 Low back pain M54.5 ; Essential hypertension I10 ; Hyperlipidemia, unspecified E78.5 ; Anxiety F41.9 ; Moderate episode of recurrent major depressive disorder F33.1 ; Primary insomnia F51.01 ; Exposure to STD Z20.2 ; Encounter for hepatitis C screening test for low risk patient Z11.59 and History of herpes genitalis Z86.19 [facility] [address] [address]- 3022 17 Jan, 2016 [facility] [address] [place] [id number] [place] [address] 75036- 9354 Nov, [facility] [address] [place] [id number] [place] [address] 60000- 4866 Nov, Anxiety F41.9 ; Cervicalgia M54.2 ; Moderate episode of recurrent major depressive disorder F33.1 and Encounter for immunization Z23 [facility] [address] [place] [id number] [place] [address] 66881- 3784 Oct, [facility] [address] 00941- 3676 Oct, [facility] [address] 82408- 5137 16 Nov, 2015 [facility] [address] 93576- 0856 Oct, [facility] [address] [place] [id number] [place] [address] 17419- 6225 Sep, [facility] [address] [place] [id number] [place] [address] 91931- 6308 Aug, Low back pain M54.5 ; Anxiety F41.9 ; Primary insomnia F51.01 and Chronic prescription opiate use Z79.899 [facility] [address] [place] [id number] [place] [address] 66419- 5984 Jul, [facility] [address] [place] [id number] [place] [address] 56946- 0103 Jul, [facility] [address] [place] [id number] [place] [address] 67014- 8591 Jul, [facility] [address] [place] [id number] [place] [address] 52866- 5213 Jul, [facility] [address] [place] [id number] [place] [address] 91916- 3891 Jul, [facility] [address] [place] [id number] [place] [address] 68333- 3630 June, [facility] [address] [address]- 8448 June, [facility] [address] [place] [id number] [place] [address] 97859- 8208 June, [facility] [address] [place] [id number] [place] [address] 80567- 1085 June, [facility] [address] [place] [id number] [place] [address] 27389- 3630 May, Preoperative cardiovascular examination Z01.810 [facility] [address] [id number] [place] [address] 15807- 5168 May, [facility] [address] [id number] [place] [address] 21304- 7552 Apr, [facility] [address] [place] [id number] [place] [address] 66240- 9899 Apr, Osteoarthritis of right knee M17.9 [facility] [address] [place] [id number] [place] [address] 36610- 1740 30 May, 2015 [facility] [id number] [place] [address] 34008- 5030 16 May, 2015 [facility] [id number] [place] [address] 56205- 1353 Apr, [facility] [address] [place] [id number] [place] [address] 62591- 5185 Apr, [facility] [address] [place] [id number] [place] [address] 20929- 3683 08 May, 2015 History of excessive cerumen Z78.9 ; Obstructive sleep apnea syndrome G47.33 ; History of diverticulitis Z87.19 and Nephrolithiasis N20.0 [facility] [address] [address]- 0657 Apr, [facility] [id number] [place] [address] 85756 -0219 Apr, Abdominal pain R10.9 [facility] [address] [place] [id number] [place] [address] 35352- 0993 10 Apr, 2015 [facility] [address] 47553- 8643 04 Apr, 2015 Osteoarthritis of right knee M17.9 [facility] [address] 80175- 6805 Mar, [facility] [address] 24608- 5827 Mar, [facility] [address] 71067- 2651 Mar, [place] [address] 20300- 5137 Mar, [facility] [address] 68165 -6448 Mar, Pyelonephritis N12 ; Left-sided thoracic back pain M54.6 ; Hematuria, unspecified R31.9 and Kidney stone N20.0 [place] [address] 78280- 7081 Mar, History of weight loss surgery Z98.84 [place] [address] [place] [id number] [place] [address] 47279- 8682 Mar, History of weight loss surgery Z98.84 and Hyperlipidemia, unspecified E78.5 [place] [address] [place] [id number] [place] [address] 43496- 3106 Mar, Low back pain M54.5 ; Chronic prescription opiate use Z79.899 ; Hyperlipidemia, unspecified E78.5 ; Spasm of back muscles M62.830 and History of weight loss surgery Z98.84 [facility] [address] [place] [id number] [place] [address] 39745- 7802 Jan, [place] [address] 23165- 9553 Jan, [facility] [address] [address]- 5561 Jan, [facility] [address] 3710 Dec, [facility] [address]- 2678 Dec, [facility] [id number] [place] [address] 565178- 0023 Dec, [facility] [id number] [place] [address] 502289- 4545 Nov, [facility] [id number] [place] [address] 27106- 2521 Nov, Obstructive sleep apnea syndrome G47.33 and Pharyngoesophageal dysphagia R13.14 [facility] [id number] [place] [address] 33391- 7942 Nov, [facility] [id number] [place] [address] 17794- 8763 Nov, [facility] [id number] [place] [address] 49309- 4532 Nov, [facility] [address] [id number] 30 Oct, 2014 Dental examination V72.2 [facility] [address], [place] [address]- 4780 Oct, [facility] [address], [place] [address]- 7864 Oct, [facility] [id number] [place] [address] 16721- 3111 23 Oct, 2014 [facility] [address] [address]- 0411 17 Oct, 2014 [facility] [id number] [place] [address] 45310- 7983 Oct, BPH (benign prostatic hyperplasia) 600.00 and Urinary frequency 788.41 [facility] [id number] [place] [address] 44871- 7431 Oct, [facility] [id number] [place] [address] 26559- 8549 Oct, [facility] [id number] [place] [address] 58913- 4446 Oct, [facility] [id number] [place] [address] 29517- 7404 Sep, Cerumen impaction 380.4 ; Cerumen debris on tympanic membrane 380.4 ; Psoriasis 696.1 and MICKY (secretory otitis media) 381.4 [facility] [id number] [place] [address] [id number] Sep, Dental examination V72.2 [facility] [id number] [place] [address] 14302- 3812 Sep, Fatigue 780.79 ; Irritable bowel syndrome 564.1 ; Overweight 278.02 ; Poor sleep V69.4 ; Shaking spells 781.0 and Broken tooth 873.63 [facility] [id number] [place] [address] 20176- 1145 Sep, [facility] [id number] [place] [address] 24029- 8582 Sep, [facility] [id number] [place] [address] 12972- 8909 Aug, [facility] [id number] [place] [phone] Jul, [facility] [id number] [place] [address] [phone] Jul, [facility] [id number] [place] [address] [phone] Jul, [facility] [id number] [place] [address] Jul, [facility] [address] [id number] [place] [address] June, Arthritis of knee, right 716.96 [facility] [address] [id number] [place] [address] June, [facility] [address] [id number] [place] [address] June, Elevated blood pressure reading without diagnosis of hypertension 796.2 [facility] [address] [id number] [place] [address] June, [facility] [address] [id number] [place] [address] June, [facility] [address] [id number] [place] [address] June, [facility] [address] [id number] [place] [address] June, [facility] [address] [id number] [place] [address] 269[address] May, [facility] [address] [id number] [place] [address] 8[address] May, [facility] [address] [id number] [place] [address] Apr, [facility] [address] [id number] [place] [address] 9564 Apr, [facility] [address] [id number] [place] [address] Apr, [facility] [address] [id number] [place] [address]265 Apr, [facility] [address] [id number] [place] [address] 1393 Apr, [facility] [address] [id number] [place] [address] Apr, 2014 [facility] [place] [facility] [address] [id number] [place] [address] 1776 Apr, 2014 [facility] [place] [facility] [address] [id number] [place] [address] 0292 Apr, 2014 [facility] [place] [facility] [address] [id number] [place] [address] 5554 Apr, 2014 [facility] [place] [facility] [address] [id number] [place] [address] 9802 Apr, 2014 [facility] [place] [facility] [address] [id number] [place] [address] 3742 Apr, 2014 [facility] [place] [facility] [address] [facility] [id number] [place] [address] 5044 Apr, 2014 [facility] [place] [facility] [address] [facility] [id number] [place] [address]- 3035 Apr, 2014 [facility] [place] [facility] [address] [id number] [place] [address]- 7414 Apr, 2014 [facility] [place] [facility] [address] [facility] [id number] [place] [address] 3393 Apr, 2014 [facility] [place] [facility] [address] [facility] [id number] [place] [address] 0783 Apr, 2014 [facility] [place] [facility] [address] [facility] [id number] [address] 1610 Apr, 2014 [facility] [place] [facility] [address] [facility] [id number] [place] [address] 9722 Apr, 2014 [facility] [place] [facility] [address] [facility] [id number] [place] [address] 1118 Apr, 2014 [facility] [place] [facility] [address] [facility] [id number] [place] [address]- 8173 Apr, 2014 [facility] [place] [facility] [address] [facility] [id number] [place] [address]- 9273 Apr, 2014 [facility] [place] [facility] [address] [id number] [place] [address]- 7176 Apr, 2014 [facility] [place] [facility] [address] [id number] [place] [address]- 0556 Apr, 2014 [facility] [place] [facility] [address] [facility] [id number] [place] [address]- 6136 Apr, 2014 [facility] [place] [facility] [address] [id number] [place] [address]- 5823 Apr, 2014 [facility] [place] [facility] [address] [id number] [place] [address]- 3977 Apr, 2014 [facility] [place] [facility] [address] [facility] [id number] [place] [address]- 2490 Apr, 2014 [facility] [place] [facility] [address] [place] [id number] [place] [address] Apr, 2014 [facility] [place] [facility] [address] [facility] [id number] [place] [address]- 1403 Apr, 2014 [facility] [place] [facility] [address] [facility] [id number] [place] [address]- 4836 Apr, 2014 [facility] [place] [facility] [address] [facility] [id number] [place] [address]- 1489 Apr, 2014 [facility] [place] [facility] [address] [facility] [id number] [place] [address] 254 Apr, 2014 [facility] [place] [facility] [address] [facility] [id number] [place] [address]- 254 Apr, 2014 [facility] [place] [facility] [address] [facility] [id number] [place] [address]- 5596 Mar, [facility] [place] [facility] [address] [facility] [id number] [place] [address] 4718 Mar, [facility] [place] [facility] [address] [facility] [id number] [place] [address] 3786 Mar, [facility] [place] [facility] [address] [id number] [place] [address] 8320 Mar, [facility] [place] [facility] [address] [id number] [place] [address]- 6285 Mar, [facility] [place] [facility] [address] [id number] [place] [address]- 6044 Mar, [facility] [place] [facility] [address] [id number] [place] [address] 6034 Mar, [facility] [place] [facility] [address] [id number] [place] [address]- 9199 Mar, [facility] [place] [facility] [address] [id number] [place] [address]- 6064 Mar, [facility] [place] [facility] [address] [id number] [place] [address]- 8180 Mar, [facility] [place] [facility] [address] [id number] [place] [address]- 8675 Jan, [facility] [place] [facility] [address] [id number] [place] [address]- 4114 Jan, [facility] [place] [facility] [address] [id number] [place] [address]- 6840 Jan, [facility] [place] [facility] [address] [id number], [place] [address]- 0695 Jan, [facility] [place] [facility] [address] [id number], [place] [address]- 5010 Jan, [facility] [place] [facility] [address] [id number] [place] [address]- 5770 Jan, [facility] [place] [facility] [address] [id number] [place] [address]- 5667 Jan, [facility] [place] [facility] [address] [id number] [place] [address]- 2407 Jan, [facility] [place] [facility] [address] [id number] [place] [address]- 6376 05 Jan, 2014 [facility] [place] [facility] [address] [id number] [place] [address]- 4673 05 Jan, 2014 [facility] [place] [facility] [address] [id number] [place] [address]- 0553 Jan, [facility] [place] [facility] [address] [id number] [place] [address]- 0950 Jan, [facility] [place] [facility] [address] [id number] [place] [address]- 0236 Dec, [facility] [place] [facility] [address] [id number] [place] [address]- 6653 Dec, [facility] [place] [facility] [address] [id number] [place] [address]- 6483 Dec, [facility] [place] [facility] [address] [id number] [place] [address]- 0978 Dec, [facility] [place] [facility] [address] [id number] [place] [address]- 2239 Dec, [facility] [place] [facility] [address] [id number] [place] [address]- 8104 Dec, [facility] [place] [facility] [address] [facility] [id number] [place] [address]- 0615 Dec, [facility] [place] [facility] [address] [id number] [place] [address]- 1630 Dec, [facility] [place] [facility] [address] [id number] [place] [address]- 2450 Dec, [facility] [place] [facility] [address] [id number] [place] [address]- 6081 Dec, [facility] [place] [facility] [address] [id number] [place] [address]- 0864 Nov, [facility] [place] [facility] [address] [id number] [place] [address]- 0469 Nov, [facility] [place] [facility] [address] [id number] [place] [address]- 4729 Nov, 2013 [facility] [place] [facility] [address] [id number] [place] [address]- 4164 Nov, [facility] [place] [facility] [address] [id number] [place] [address]- 3963 Nov, [facility] [place] [facility] [address] [id number] [place] [address]- 1724 Nov, [facility] [place] [facility] [address] [id number] [place] [address]- 2413 Nov, [facility] [place] [facility] [address] [id number] [place] [address]- 4362 Nov, [facility] [place] [facility] [address] [id number] [place] [address]- 7470 Nov, [facility] [place] [facility] [address] [id number] [place] [address]- 9904 Nov, [facility] [place] [facility] [address] [id number] [place] [address]- 5091 Nov, [facility] [place] [facility] [address] [id number] [place] [address]- 0558 17 Nov, 2013 [facility] [place] [facility] [address] [id number] [place] [address]- 0400 14 Nov, 2013 [facility] [place] [facility] [address] [id number] [place] [address]- 3097 14 Nov, 2013 [facility] [place] [facility] [address] [id number] [place] [address]- 7249 10 Nov, 2013 [facility] [place] [facility] [address] [id number] [place] [address]- 6357 10 Nov, 2013 [facility] [place] [facility] [address] [id number] [place] [address]- 2501 08 Nov, 2013 [facility] [place] [facility] [address] [id number] [address]- 7709 Nov, [facility] [place] [facility] [address] [id number] [place] [address]- 9148 Nov, [facility] [place] [facility] [address] [id number] [place] [address]- 4823 Nov, [facility] [place] [facility] [address] [id number] [place] [address]- 5857 Oct, [facility] [place] [facility] [address] [id number] [place] [address]- 8274 Oct, [facility] [place] [facility] [address] [id number] [place] [address]- 3582 Oct, [facility] [place] [facility] [address] [id number] [place] [address]- 4124 Oct, [facility] [place] [facility] [address] [id number] [place] [address]- 2357 Oct, [facility] [place] [facility] [address] [id number] [place] [address]- 0914 Oct, [facility] [place] [facility] [address] [id number] [place] [address]- 6119 Oct, [facility] [place] [facility] [address] [id number] [place] [address]- 7228 Oct, [facility] [place] [facility] [address] [id number] [place] [address]- 1994 Oct, [facility] [place] [facility] [address] [id number] [place] [address]- 5172 Oct, [facility] [place] [facility] [address] [id number] [place] [address]- 6631 Sep, [facility] [place] [facility] [address] [id number] [place] [address]- 8430 Sep, [facility] [place] [facility] [address] [id number] [place] [address]- 8647 Sep, [facility] [place] [facility] [address] [id number] [place] [address]- 9576 Sep, [facility] [place] [facility] [address] [id number] [place] [address]- 1520 Sep, [facility] [place] [facility] [address] [id number] [place] [address]- 2106 Sep, [facility] [place] [facility] [address] [id number] [place] [address]- 0398 Sep, [facility] [place] [facility] [address] [id number] [place] [address]- 9349 Sep, [facility] [place] [facility] [address] [id number] [place] [address]- 9093 Sep, [facility] [place] [facility] [address] [id number] [place] [address]- 8039 Sep, [facility] [place] [facility] [address] [id number] [place] [address]- 5259 Sep, [facility] [place] [facility] [address] [id number] [place] [address]- 4862 Sep, [facility] [place] [facility] [address] [id number] [place] [address]- 7733 Sep, [facility] [place] [facility] [address] [id number] [place] [address]- 7433 Sep, [facility] [place] [facility] [address] [id number] [place] [address]- 6193 Sep, [facility] [place] [facility] [address] [id number] [place] [address]- 2547 Sep, [facility] [place] [facility] [address] [id number] [place] [address]- 3797 Sep, [facility] [place] [facility] [address] [id number] [place] [address]- 4625 Sep, [facility] [place] [facility] [address] [id number] [place] [address]- 2747 Sep, [facility] [place] [facility] [address] [id number] [place] [address]- 7097 Sep, [facility] [place] [facility] [address] [id number] [place] [address]- 2132 Sep, [facility] [place] [facility] [address] [id number] [place] [address]- 9322 Sep, [facility] [place] [facility] [address] [id number] [place] [address]- 6948 Sep, [facility] [place] [facility] [address] [id number] [place] [address]- 2002 Sep, [facility] [place] [facility] [address] [id number] [place] [address]- 2526 Sep, [facility] [place] [facility] [address] [id number] [place] [address]- 2887 Aug, [facility] [place] [facility] [address] [id number] [place] [address]- 4304 Aug, [facility] [place] [facility] [address] [id number] [place] [address]- 4459 Aug, [facility] [place] [facility] [address] [id number] [place] [address]- 5369 Aug, [facility] [place] [facility] [address] [id number] [place] [address]- 0206 Aug, [facility] [place] [facility] [address] [id number] [place] [address]- 9875 Aug, [facility] [place] [facility] [address] [id number] [place] [address]- 2605 Aug, [facility] [place] [facility] [address] [id number] [place] [address]- 9108 Aug, [facility] [place] [facility] [address] [id number] [place] [address]- 9537 Aug, [facility] [place] [facility] [address] [id number] [place] [address]- 9947 Aug, [facility] [place] [facility] [address] [id number] [place] [address]- 0080 Aug, [facility] [place] [facility] [address] [id number] [place] [address]- 2914 Aug, [facility] [place] [facility] [address] [id number] [place] [address]- 9188 Aug, [facility] [place] [facility] [address] [id number] [place] [address]- 9383 Jul, [facility] [place] [facility] [address] [id number] [place] [address]- 8732 Jul, [facility] [place] [facility] [address] [id number] [place] [address]- 2484 Jul, [facility] [place] [facility] [address] [id number] [place] [address]- 6877 Jul, [facility] [place] [facility] [address] [id number] [place] [address]- 2657 Jul, [facility] [place] [facility] [address] [id number] [place] [address]- 9348 Jul, [facility] [place] [facility] [address] [id number] [place] [address]- 6030 Jul, [facility] [place] [facility] [address] [id number] [place] [address]- 7946 June, [facility] [place] [facility] [address] [id number] [place] [address]- 8446 June, [facility] [place] [facility] [address] [id number] [place] [address]- 6497 June, [facility] [place] [facility] [address] [id number] [place] [address]- 5064 June, [facility] [place] [facility] [address] [id number] [place] [address]- 3404 May, [facility] [place] [facility] [address] [id number] [place] [address]- 5106 May, [facility] [place] [facility] [address] [id number] [place] [address]- 2151 May, [facility] [place] [facility] [address] [id number] [place] [address]- 7916 May, [facility] [place] [facility] [address] [id number] [place] [address]- 3392 May, [facility] [place] [facility] [address] [id number] [place] [address]- 1801 May, [facility] [place] [facility] [address] [id number] [place] [address]- 7250 May, [facility] [place] [facility] [address] [id number] [place] [address]- 8214 May, [facility] [place] [facility] [address] [id number] [place] [address]- 7360 May, [facility] [place] [facility] [address] [id number] [place] [address]- 9094 May, [facility] [place] [facility] [address] [id number] [place] [address]- 1175 Apr, [facility] [place] [facility] [address] [id number] [place] [address]- 4996 Apr, [facility] [place] [facility] [address] [id number] [place] [address]- 0975 Apr, [facility] [place] [facility] [address] [id number] [place] [address]- 4583 Apr, [facility] [place] [facility] [address] [id number] [place] [address]- 0105 Apr, [facility] [place] [facility] [address] [id number] [place]098 Apr, [facility] [place] [facility] [address] [id number] [place] [address]- 3414 Apr, [facility] [address] [id number] [place] [address]- 1878 Apr, [facility] [place] [facility] [address] [id number] [place] [address]- 0418 Apr, [facility] [place] [facility] [address] [id number] [place] [address]- 8756 Apr, [facility] [place] [facility] [address] [id number] [place] [address]- 7410 Mar, [facility] [place] [facility] [address] [id number] [place] [address]- 8832 Mar, [facility] [address] [id number] [place] [address]- 5819 Mar, [facility] [address] [id number] [place] [address]- 9554 Mar, [facility] [place] [facility] [address] [id number] [place] [address]- 3098 Mar, [facility] [address] [id number] [place] [address]- 8435 Mar, [facility] [place] [facility] [address] [facility] [id number] [place] [address]- 8269 Jan, [facility] [place] [facility] [address] [id number] [place] [address]- 9598 Jan, [facility] [place] [facility] [address] [id number], [place] [address]- 2336 Jan, [facility] [place] [facility] [address] [id number] [place] [address]- 4208 Jan, [facility] [place] [facility] [address] [id number] [place] [address]- 6890 Jan, [facility] [place] [facility] [address] [id number] [place] [address]- 4237 Jan, [facility] [place] [facility] [address] [id number] [place] [address]- 5764 Jan, [facility] [address] [id number] [place] [address]- 4964 Jan, [facility] [place] [facility] [address] [id number] [place] [address]953 Jan, [facility] [place] [facility] [address] [id number] [place] [address]- 7653 Dec, [facility] [place] [facility] [address] [id number] [place] [address]- 4069 Dec, [facility] [place] [facility] [address] [id number] [place] [address]- 8209 Dec, [facility] [place] [facility] [address] [id number] [place] [address]- 6385 Dec, [facility] [place] [facility] [address] [id number] [place] [address]- 3614 Dec, [facility] [address] [id number] [place] [address]- 9169 Dec, [facility] [place] [facility] [address] [id number] [place] [address]- 1012 Dec, [facility] [place] [facility] [address] [facility] [id number] [place] [address]- 9692 Dec, [facility] [place] [facility] [address] [id number] [place] [address]- 5581 Dec, [facility] [place] [facility] [address] [id number] [place] [address]- 2015 Dec, [facility] [place] [facility] [address] [id number] [place] [address]- 0911 Dec, [facility] [place] [facility] [address] [id number] [place] [address] Nov, [facility] [place] [facility] [address] [id number] [place] [address] Nov, [facility] [address] [id number] [place] [address] Nov, [facility] [place] [facility] [address] [id number] [place] [address] Nov, [facility] [place] [facility] [address] [id number] [place] [address] Nov, [facility] [place] [facility] [address] [id number] [place] [address] Oct, [facility] [place] [facility] [address] [id number] [place] [address] Oct, [facility] [place] [facility] [address] [id number] [place] [address] Sep, [facility] [place] [facility] [address] [id number] [place] [address] Aug, [facility] [place] [facility] [address] [id number] [place] [address] Aug, [facility] [place] [facility] [address] [id number] [place] [address]- [address] Aug, [facility] [place] [facility] [address] [id number] [address] Aug, [facility] [place] [facility] [address] [id number] [place] [address] Jul, [facility] [place] [facility] [address] [id number], [place] [address] Jul, [facility] [place] [facility] [address] [id number] [place] [address] June, [facility] [place] [facility] [address] [id number] [place] [address]- [address] June, [facility] [place] [facility] [address] [id number] [place] [address] June, [facility] [place] [facility] [address] [id number] [place] [address]- [address] 08 May, 2012 [facility] [address] [id number] [place] [address]- 1392 04 May, 2012 [facility] [place] [facility] [address] [facility] [id number] [place] [address] May, [facility] [address] [facility] [id number] [place] [address]- 7976 18 Apr, 2012 [facility] [place] [facility] [address] [facility] [id number] [place] [address]40 18 Apr, 2012 [facility] [address] [id number] [place] [address]- 2462 15 Apr, 2012 [facility] [place] [facility] [address] [facility] [id number] [place] [address]- 1766 14 Apr, 2012 [facility] [address] [id number] [place] [address] 12 Apr, 2012 [facility] [place] [facility] [address] [facility] [id number] [place] [address]- [address]7 27 Apr, 2012 [facility] [place] [facility] [id number] [place] [address] 25 Apr, 2012 [facility] [place] [facility] [address] [id number] [place] [address]- [address] 25 Apr, 2012 [facility] [place] [facility] [id number] [place] [address] 64[address] 21 Apr, 2012 [facility] [place] [facility] [address] [facility] [id number] [place] [address]- 0695 20 Apr, 2012 [facility] [place] [facility] [address] [facility] [id number] [place] [address] 19 Apr, 2012 [facility] [place] [facility] [address] [facility] [id number] [place] [address]- 2977 07 Apr, 2012 [facility] [place] [facility] [id number] [place] [address]- [address] 07 Apr, 2012 [facility] [address] [id number] [place] [address] Mar, [facility] [place] [facility] [address] [id number] [place] [address] 9576 Mar, [facility] [address] [id number] [place] [address]- [address]28 Mar, [facility] [place] [facility] [address] [id number] [place] [address]- 8535 Mar, [facility] [address] [id number] [place] [address]- [address]674 Mar, [facility] [address] [id number] [place] [address]- 8537 Jan, [facility] [address] [id number] [place] [address]- 5928 Jan, [facility] [address] [id number] [place] [address]- 6[address] Jan, [facility] [address] [id number] [place] [address]- 9841 Jan, [facility] [address] [id number] [place] [address]- 2484 14 Jan, 2012 [facility] [place] [facility] [address] [id number] [place] [address]- 3620 Jan, [facility] [place] [facility] [address] [id number] [place] [address]- 9655 13 Jan, 2012 [facility] [place] [facility] [address] [id number] [place] [address]- 4084 11 Jan, 2012 [facility] [place] [facility] [address] [id number] [place] [address] 06 Jan, 2012 [facility] [place] [facility] [address] [id number] [place] [address]- 2386 06 Jan, 2012 [facility] [place] [facility] [address] [id number] [place] [address]- 7519 04 Jan, 2012 [facility] [place] [facility] [address] [id number] [place] [address]- 9788 04 Jan, 2012 [facility] [place] [facility] [address] [id number] [place] [address]- 6642 Jan, [facility] [place] [facility] [address] [id number] [place] [address]- 6[address] Jan, [facility] [place] [facility] [address] [id number] [place] [address]- 3917 26 Jan, 2012 [facility] [place] [facility] [address] [id number] [place] [address]- 5895 26 Jan, 2012 [facility] [place] [facility] [address] [id number] [place] [address]- 4192 Dec, [facility] [place] [facility] [address] [id number] [place] [address]- 0179 19 Jan, 2012 [facility] [place] [facility] [address] [id number] [place] [address]- 1104 15 Jan, 2012 [facility] [place] [facility] [address] [id number] [place] [address]- 0459 15 Jan, 2012 [facility] [place] [facility] [address] [facility] [id number] [place] [address]- 3701 14 Jan, 2012 [facility] [place] [facility] [address] [id number] [place] [address]- 4265 14 Jan, 2012 [facility] [place] [facility] [address] [id number] [address]- 7657 14 Jan, 2012 [facility] [place] [facility] [address] [id number] [place] [address]- 0228 14 Jan, 2012 [facility] [place] [facility] [address] [id number] [place] [address]- 4925 07 Jan, 2012 [facility] [place] [facility] [address] [facility] [id number], [place] [address] 07 Jan, 2012 [facility] [place] [facility] [address] [id number] [place] [address]- 1458 16 Dec, 2011 [facility] [place] [facility] [address] [id number] [place] [address]- 6059 16 Dec, 2011 [facility] [place] [facility] [address] [id number] [place] [address]- [address] 13 Nov, 2011 [facility] [place] [facility] [address] [id number] [place] [address]- 9366 13 Nov, 2011 [facility] [place] [facility] [address] [id number] [place] [address]- 0847 13 Nov, 2011 [facility] [place] [facility] [address] [id number] [place] [address] Oct, [facility] [place] [facility] [address] [id number] [place] [address] Sep, [facility] [place] [facility] [address] [id number] [place] [address] Sep, [facility] [place] [facility] [address] [id number] [place] [address] Aug, [facility] [place] [facility] [address] [id number] [place] [address] Aug, [facility] [place] [facility] [address] [id number] [place] [address] Aug, [facility] [place] [facility] [address] [id number] [place] [address] Aug, [facility] [place] [facility] [address] [id number] [place] [address] June, [facility] [place] [facility] [address] [id number] [place] [address] June, [facility] [place] [facility] [address] [id number] [place] [address] May, [facility] [place] [facility] [address] [id number] [place] [address] Apr, [facility] [address] [id number] [place] [address] Apr, [facility] [place] [facility] [address] [id number] [place] [address] Apr, [facility] [place] [facility] [address] [id number] [place] [address] Apr, [facility] [place] [facility] [address] [id number] [place] [address] Apr, [facility] [place] [facility] [address] [id number] [place] [address] Apr, [facility] [place] [facility] [address] [id number] [place] [address] Mar, [facility] [place] [facility] [address] [id number] [place] [address] Mar, [facility] [place] [facility] [address] [id number] [place] [address] Mar, [facility] [place] [facility] [address] [id number] [place] [address] Jan, [facility] [place] [facility] [address] [id number] [place] [address] Jan, [facility] [place] [facility] [address] [id number] [place] [address] Jan, [facility] [place] [facility] [address] [id number] [place] [address] Jan, [facility] [place] [facility] [address] [id number] [place] [address] Jan, [facility] [place] [facility] [address] [id number] [place] [address] Jan, [facility] [place] [facility] [address] [id number] [place] [address] Jan, [facility] [place] [facility] [address] [id number] [place] [address] Dec, [facility] [place] [facility] [address] [id number] [place] [address] Dec, [facility] [place] [facility] [address] [id number] [place] [address] Nov, [facility] [place] [facility] [address] [id number] [place] [address] Nov, [facility] [place] [facility] [address] [id number] [place] [address] Nov, [facility] [place] [facility] [address] [id number] [place] [address], [place] [address] Nov, [facility] [place] [facility] [address] [id number] [place] [address] Oct, [facility] [place] [facility] [address] [id number] [place] [address] Sep, [facility] [place] [facility] [address] [id number] [place] [address] Mar, [facility] [place] [facility] [address] [id number] [place] [address] Jan, [facility] [place] [facility] [address] [id number] [place] [address] Dec, [facility] [place] [facility] [address] [id number] [place] [address] Dec, [facility] [place] [facility] [address] [id number] [place] [address] Dec, [facility] [place] [facility] [address] [id number] [place] [address] Dec, [facility] [place] [facility] [address] [id number] [place] [address] Nov, [facility] [place] [facility] [address] [id number] [place] [address] 15 Nov, 2009 [facility] [address] [id number] [place] [address] 14 Nov, 2009 [facility] [place] [facility] [address] [id number] [place] [address] 14 Nov, 2009 [facility] [place] [facility] [address] [id number] [place] [address] 13 Oct, 2009 [facility] [place] [facility] [address] [id number] [place] [address] 17 Jul, 2009 [facility] [place] [facility] [address] [id number] [place] [address] June, [facility] [place] [facility] [address] [id number] [place] [address] June, [facility] [place] [facility] [address] [id number] [place] [address] 17 Apr, 2009 [facility] [place] [facility] [address] [id number] [address] Mar, [facility] [place] [facility] [address] [id number] [place] [address]6 24 Jan, 2009 [facility] [place] [facility] [address] [id number], [place] [address] Jan, [facility] [place] [facility] [address] [id number], [place] [address] 27 Dec, 2008 [facility] [place] [facility] [address] [id number], [place] [address] 25 Dec, 2008 [facility] [place] [facility] [address] [id number] [place] [address] 13 Dec, 2008 [facility] [place] [facility] [address] [id number], [place] [address] 13 Dec, 2008 [facility] [place] [facility] [address] [id number] [place] [address] 30 Nov, 2008 [facility] [place] [facility] [address] [id number] [place] [address] Jul, [facility] [address] [facility] [id number] [place] [address] June, IMMUNIZATIONS No Known Immunizations SOCIAL HISTORY [...] tolerate CPAP Medical History oxygen dependent at [facility] Medical History colonic polyps [...]
--- OUTSIDE RECORDS SUMMARY | 2018-02-26 19:36 | XMS REPORT ---
Author Author CHRIS STEVENSON [facility] Address [address] [place] [address] Care Team Providers Care Fashion Consultant Selling Name Role Phone GRAHAM CHRIS Unavailable PROBLEMS Type Condition ICD9-CM Code YRM70-YH Code Onset Dates Condition Status SNOMED Code Problem Pulmonary asbestosis J61 Active 79211938 Problem Left ventricular diastolic dysfunction I51.9 Active 462704184 Problem Renal cyst, left N28.1 Active 80110106 Problem Nocturnal hypoxia G47.34 Active 643774534 Problem Obstructive sleep apnea syndrome G47.33 Active 48677383 Problem Nephrolithiasis N20.0 Active 80133669 Problem Allergic rhinitis, unspecified allergic rhinitis type J30.9 Active 95196981 Problem Essential hypertension I10 Active 76924186 Problem History of diverticulitis Z87.19 Active 895448575222738 Problem Chronic prescription opiate use Z79.899 Active 623051538 Problem 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 Active 13263663 Problem Chronic obstructive pulmonary disease, unspecified COPD type J44.9 Active 08620452 Problem Hammertoe of left foot M20.42 Active 153610747 Problem Urge incontinence N39.41 Active 548669032 Problem Anxiety F41.9 Active 61324419 Problem Psoriasis L40.9 Active 5394753 Problem Benign prostatic hyperplasia, presence of lower urinary tract symptoms unspecified, unspecified morphology N40.0 Active 163515866 Problem Moderate episode of recurrent major depressive disorder F33.1 Active 445659911 Problem Erectile dysfunction due to diseases classified elsewhere N52.1 Active 683316561 Problem Acute right-sided low back pain with right-sided sciatica M54.41 Active 387964717 Problem Cervicalgia M54.2 Active 8685636946392 Problem Primary insomnia F51.01 Active 677224365 Problem Age-related osteoporosis without current pathological fracture M81.0 Active 74905318 Problem Low back pain M54.5 Active 820312313 Problem Chronic gout, unspecified cause, unspecified site M1A.9XX0 Active 66029879 Problem History of weight loss surgery Z98.84 Active 911239926 Problem Hyperlipidemia, unspecified E78.5 Active 36599862 Problem Esophageal stricture K22.2 Active 33368709 ALLERGIES Substance Reaction Event Type Date Status Sulfamethoxazole-Trimethoprim nausea Drug Allergy Jan, Active Penicillin V Potassium rash Drug Allergy Jan, Active Benazepril HCl hypotension Drug Allergy Jan, Active ENCOUNTERS Encounter Location Date Diagnosis [facility] [id number] [place] [address] 71302- 9876 Mar, [facility] [id number] [place] [address] 01653- 0779 Jan, BMI 50.0-59.9, adult Z68.43 ; Chronic obstructive pulmonary disease, unspecified COPD type J44.9 ; Low back pain M54.5 and Moderate episode of recurrent major depressive disorder F33.1 [facility] [id number] [place] [address] 73236- 2668 Jan, [facility] [id number] [place] [address] 18562- 5818 Jan, [facility] [id number] [place] [address] 72989- 0828 Dec, Anxiety F41.9 [facility] [id number] [place] [address] 30271- 1203 Dec, [facility] [id number] [place] [address] 43716- 5035 Dec, Anxiety F41.9 [facility] [id number] [place] [address] 88256- 6811 Dec, [facility] [id number] [place] [address] 65049- 7018 Dec, Encounter for immunization Z23 [facility] [id number] [place] [address] 49858 -8157 Dec, [facility] [address] [place] [address]- 9190 Dec, Hammertoe of left foot M20.42 ; Edema of left foot R60.0 and Onychomycosis B35.1 [facility] [id number] [place] [address] 62589 -8326 Nov, BMI 50.0-59.9, adult Z68.43 [facility] [address] 92084- 0915 Nov, [facility] [address] 67971- 7196 Nov, [facility] [address] 80278- 0363 Nov, Anxiety F41.9 [facility] [address] 89294- 6182 Oct, [facility] [address] 37530- 5143 Oct, [facility] [address] 79966- 4851 Oct, BMI 45.0-49.9, adult Z68.42 ; Essential hypertension I10 ; Hyperlipidemia, unspecified E78.5 ; Anxiety F41.9 ; Obstructive sleep apnea syndrome G47.33 ; Moderate episode of recurrent major depressive disorder F33.1 ; Left ventricular diastolic dysfunction I51.9 ; Acute pain of right shoulder M25.511 ; Pain of left foot M79.672 and Pain in right foot M79.671 [facility] [id number] [place] [address] 12146- 5301 Oct, Anxiety F41.9 [facility] [address] 38844 -5587 Sep, Left foot pain M79.672 [facility] [id number] [place] [address] 33222- 4135 Sep, [facility] [id number] [place] [address] 82138- 1046 Sep, Anxiety F41.9 [facility] [id number] [place] [address] 04090- 9397 Sep, [facility] [id number] [place] [address] 12507- 3626 Aug, [facility] [address] 89772- 6873 Aug, [facility] [id number] [place] [address] 65737- 5117 Aug, Anxiety F41.9 [facility] [id number] [place] [address] 11039- 0430 Aug, [facility] [id number] [place] [address] 42965- 6687 Jul, [facility] [id number] [place] [address] 82943- 6567 Jul, Anxiety F41.9 [facility] [id number] [place] [address] 91581- 8480 June, Anxiety F41.9 [facility] [id number] [place] [address] 72698- 4544 June, [facility] [id number] [place] [address] 80509- 6965 June, Low back pain M54.5 ; Chronic prescription opiate use Z79.899 ; Candidal intertrigo B37.2 ; Urge incontinence N39.41 ; Essential hypertension I10 ; Moderate episode of recurrent major depressive disorder F33.1 ; Age-related osteoporosis without current pathological fracture M81.0 and BMI 45.0-49.9, adult Z68.42 [facility] [id number] [place] [address] 73933- 4196 June, [facility] [id number] [place] [address] 66262- 5499 May, Anxiety F41.9 [facility] [id number] [place] [address] 59076- 5577 May, [facility] [id number] [place] [address] 40685- 2216 May, [facility] [id number] [place] [address] 25237- 9973 Apr, Anxiety F41.9 [facility] [id number] [place] [address] 15367- 1372 Apr, [facility] [address] 05000- 5714 Apr, Low back pain M54.5 [facility] [id number] [place] [address] 27395- 1745 Apr, [facility] [id number] [place] [address] 37328- 1837 Apr, [facility] [id number] [place] [address] 81982- 3113 Apr, Anxiety F41.9 [facility] [id number] [place] [address] 11577- 0329 Apr, Right groin pain R10.31 [facility] [id number] [place] [address] 05783- 7535 Mar, [facility] [id number] [place] [address] 76981- 0141 Mar, [facility] [id number] [place] [address] 67679- 7886 Mar, Anxiety F41.9 [facility] [id number] [place] [address] 14674- 3851 Mar, Low back pain M54.5 [facility] [id number] [place] [address] 43522- 4814 Mar, Right groin pain R10.31 ; Low back pain M54.5 and BMI 45.0- 49.9, adult Z68.42 [facility] [id number] [place] [address] 40531- 1024 Mar, [facility] [id number] [place] [address] 48663- 0671 Mar, [facility] [address] 54486- 0033 Mar, [facility] [id number] [place] [address] 31340 -2378 Mar, [facility] [place] [address] 79259 -4526 Mar, Cough R05 ; Pneumonia of right lower lobe due to infectious organism J18.1 and Abnormal chest x-ray R93.8 [facility] [id number] [place] [address] 44895- 9228 Mar, [facility] [address] 97020- 2425 Mar, [facility] [id number] [place] [address] 77672- 0364 Jan, Anxiety F41.9 [facility] [id number] [place] [address] 32751- 8241 Jan, [facility] [id number] [place] [address] 07690- 2940 Jan, Moderate episode of recurrent major depressive disorder F33.1 [facility] [id number] [place] [address] 74946- 1579 Jan, Subacromial bursitis of right shoulder joint M75.51 ; Shortness of breath on exertion R06.02 and BMI 45.0-49.9, adult Z68.42 [facility] [id number] [place] [address] 48813- 8333 Dec, Anxiety F41.9 [facility] [address] [address]- 8684 Dec, [facility] [id number] [place] [address] 13902- 8620 Dec, Low back pain M54.5 [facility] [id number] [place] [address] 97204- 0287 Oct, Low back pain M54.5 [facility] [id number] [place] [address] 14331- 6526 Sep, [facility] [id number] [place] [address] 21282- 9219 Sep, Erectile dysfunction due to diseases classified elsewhere N52.1 [facility] [id number] [place] [address] 07915- 7139 Sep, Erectile dysfunction due to diseases classified elsewhere N52.1 [facility] [id number] [place] [address] 19874- 2632 Sep, [facility] [id number] [place] [address] 25115- 3988 Sep, Erectile dysfunction due to diseases classified elsewhere N52.1 [facility] [address] [place] [address] 28290- 8950 Sep, Low back pain M54.5 and Anxiety F41.9 [facility] [address] [place] [address] 88789 -3227 Aug, Acute allergic rhinitis J30.9 [facility] [id number] [place] [address] 26854- 2560 Aug, [facility] [id number] [place] [address] 67895- 4854 Aug, Anxiety F41.9 [facility] [address] [place] [address] 18005- 1012 15 Matias, 2017 Low back pain M54.5 ; Chronic prescription opiate use Z79.899 and Essential hypertension I10 [facility] [id number] [place] [address] 75107- 4831 Jul, Anxiety F41.9 and Low back pain M54.5 [facility] [id number] [place] [address] 62862- 8012 June, [facility] [address] 48768- 9273 June, Anxiety F41.9 [facility] [id number] [place] [address] 21700- 8172 May, Low back pain M54.5 [facility] [id number] [place] [address] 32647- 5041 May, [facility] [address] 46608- 4375 May, Anxiety F41.9 [facility] [id number] [place] [address] 73083- 1504 Apr, [facility] [address] 02994- 8890 Apr, Low back pain M54.5 [facility] [id number] [place] [address] 26099- 9813 Apr, Moderate episode of recurrent major depressive disorder F33.1 [facility] [id number] [place] [address] 21594- 1526 Apr, Anxiety F41.9 [facility] [id number] [place] [address] 48608- 2359 Apr, Low back pain M54.5 [facility] [id number] [place] [address] 60115- 3717 15 Apr, 2016 Elevated alkaline phosphatase level R74.8 [facility] [id number] [place] [address] 39876- 7598 10 Apr, 2016 Alkaline phosphatase elevation R74.8 [facility] [id number] [place] [address] 52549- 6295 06 Apr, 2016 Anxiety F41.9 [facility] [id number] [place] [address] 24040- 1092 03 Apr, 2016 Low back pain M54.5 [facility] [id number] [place] [address] 21912- 7844 03 Apr, 2016 History of weight loss surgery Z98.84 ; Encounter for hepatitis C screening test for low risk patient Z11.59 ; History of herpes genitalis Z86.19 ; Essential hypertension I10 ; Hyperlipidemia, unspecified E78.5 ; Exposure to STD Z20.2 and Benign prostatic hyperplasia, presence of lower urinary tract symptoms unspecified, unspecified morphology N40.0 [facility] [id number] [place] [address] 49335- 4447 02 Apr, 2016 [place] [id number] [place] [address] 77525- 0369 Mar, [facility] [id number] [place] [address] 94869- 0095 Mar, [facility] [id number] [place] [address] 61157- 1682 Mar, [place] [address] [place] [address] 12154- 3537 Mar, Acute right-sided low back pain with right-sided sciatica M54.41 [place] [place] [id number] [place] [address] 81733- 5037 Mar, Low back pain M54.5 [facility] [id number] [place] [address] 50938 -2106 Mar, Muscle strain of chest wall, initial encounter S29.011A ; Muscle strain of right thigh, initial encounter S76.911A and Acute non- recurrent maxillary sinusitis J01.00 [facility] [id number] [place] [address] 55605- 9161 Mar, Benign prostatic hyperplasia, presence of lower urinary tract symptoms unspecified, unspecified morphology N40.0 [facility] [id number] [place] [address] 40525- 7057 Jan, Low back pain M54.5 [facility] [id number] [place] [address] 70175- 7421 Jan, Low back pain M54.5 ; Essential hypertension I10 ; Hyperlipidemia, unspecified E78.5 ; Anxiety F41.9 ; Moderate episode of recurrent major depressive disorder F33.1 ; Primary insomnia F51.01 ; Exposure to STD Z20.2 ; Encounter for hepatitis C screening test for low risk patient Z11.59 and History of herpes genitalis Z86.19 [facility] [id number] [place] [address] 47918- 4869 17 Jan, 2016 [place] [address] 46080- 7555 20 Dec, 2015 [place] [id number] [place] [address] 08288- 4767 14 Dec, 2015 Anxiety F41.9 ; Cervicalgia M54.2 ; Moderate episode of recurrent major depressive disorder F33.1 and Encounter for immunization Z23 [place] [id number] [place] [address] 76671- 3451 Oct, [facility] [id number] [place] [address] 01931- 9182 Oct, [facility] [id number] [place] [address] 74634- 7077 16 Nov, 2015 [facility] [address] 91321- 6082 09 Nov, 2015 [facility] [id number] [place] [address] 10207- 3041 Sep, [facility] [address] 43837- 2514 Aug, Low back pain M54.5 ; Anxiety F41.9 ; Primary insomnia F51.01 and Chronic prescription opiate use Z79.899 [facility] [id number] [place] [address] 89732- 4816 Jul, [facility] [id number] [place] [address] 25950- 6716 Jul, [facility] [id number] [place] [address] 87698- 5878 Jul, [facility] [id number] [place] [address] 63429- 0148 Jul, [facility] [id number] [place] [address] 55890- 5598 Jul, [facility] [id number] [place] [address] 75504- 8086 June, [facility] [id number] [place] [address] 87761- 4593 June, [facility] [id number] [place] [address] 98120- 9388 June, [facility] [id number] [place] [address] 27950- 9115 June, [facility] [address] [place] [address] 07364- 7810 May, Preoperative cardiovascular examination Z01.810 [facility] [address] [place] [address] 74722- 8101 May, [facility] [id number] [place] [address] 39830- 3915 Apr, [facility] [id number] [place] [address] 56126- 2009 Apr, Osteoarthritis of right knee M17.9 [facility] [id number] [place] [address] 70116- 0521 Apr, [facility] [address] [address]- 8729 16 May, 2015 [facility] [id number] [place] [address] 80672- 2918 Apr, [facility] [id number] [place] [address] 33815- 7494 09 May, 2015 [facility] [id number] [place] [address] 00677- 1587 08 May, 2015 History of excessive cerumen Z78.9 ; Obstructive sleep apnea syndrome G47.33 ; History of diverticulitis Z87.19 and Nephrolithiasis N20.0 [facility] [id number] [place] [address] [phone] 29 Apr, 2015 [facility] [id number] [place] [address] [phone] 23 Apr, 2015 Abdominal pain R10.9 [facility] [id number] [place] [address] [phone] 10 Apr, 2015 [facility] [id number] [place] [address] [phone] 04 Apr, 2015 Osteoarthritis of right knee M17.9 [facility] [id number] [place] [address] [phone] Mar, [facility] [id number] [place] [address] [phone] Mar, [facility] [id number] [place] [address] [phone] 14 Mar, 2015 [facility] [id number] [place] [address] [phone] 13 Mar, 2015 [facility] [id number] [place] [address] [phone] 13 Mar, 2015 Pyelonephritis N12 ; Left-sided thoracic back pain M54.6 ; Hematuria, unspecified R31.9 and Kidney stone N20.0 [facility] [id number] [place] [address] [phone] 12 Mar, 2015 History of weight loss surgery Z98.84 [facility] [facility] [id number] [place] [address] 26440 2540 Mar, History of weight loss surgery Z98.84 and Hyperlipidemia, unspecified E78.5 [facility] [id number] [place] [address] 05296- 2381 Mar, Low back pain M54.5 ; Chronic prescription opiate use Z79.899 ; Hyperlipidemia, unspecified E78.5 ; Spasm of back muscles M62.830 and History of weight loss surgery Z98.84 [facility] [id number] [place] [address] 24155- 8671 Jan, [facility] [id number] [place] [address] 02942- 8943 Jan, [facility] [id number] [place] [address] 46820- 9098 Jan, [facility] [address] 14792- 7586 Dec, [facility] [id number] [place] [address] 34546- 9535 Dec, [facility] [id number] [place] [address] 81577- 2078 Dec, [facility] [id number] [place] [address] 62604- 5317 Nov, [facility] [id number] [place] [address] 98931- 1957 Nov, Obstructive sleep apnea syndrome G47.33 and Pharyngoesophageal dysphagia R13.14 [facility] [id number] [place] [address] 18358- 1835 Nov, [facility] [address] [place] [address]- 0087 Nov, [facility] [id number] [place] [address] 57948- 9638 Nov, [facility] [id number] [id number] Oct, Dental examination V72.2 [facility] [id number] [place] [address] 55017- 7116 Oct, [facility] [id number] [place] [address] 47796- 5722 Oct, [facility] [id number] [place] [address] 01449- 5661 Oct, [facility] [id number] [place] [address] 08670- 6384 Oct, [facility] [id number] [place] [address] 38707- 2793 Oct, BPH (benign prostatic hyperplasia) 600.00 and Urinary frequency 788.41 [facility] [id number] [place] [address] 08493- 9320 Oct, [facility] [id number] [place] [address] 97500- 0994 Oct, [facility] [id number] [place] [address] 36337- 5169 Oct, [facility] [id number] [place] [address] 46134- 1140 Sep, Cerumen impaction 380.4 ; Cerumen debris on tympanic membrane 380.4 ; Psoriasis 696.1 and MICKY (secretory otitis media) 381.4 [facility] [address] [id number] Sep, Dental examination V72.2 [facility] [id number] [place] [address] 17507- 0728 Sep, Fatigue 780.79 ; Irritable bowel syndrome 564.1 ; Overweight 278.02 ; Poor sleep V69.4 ; Shaking spells 781.0 and Broken tooth 873.63 [facility] [address] [address] 3069 Sep, [facility] [id number] [address]- 2385 Sep, [facility] [id number] [place] [address] 82120- 5213 Aug, [facility] [id number] [place] [address] 43541- 5650 Jul, [facility] [id number] [place] [address] 08016- 4572 Jul, [facility] [id number] [address]- 5081 Jul, [facility] [id number] [address]- 9170 Jul, [facility] [address] [address]- 4658 June, Arthritis of knee, right 716.96 [facility] [address], [place] [address]- 6399 June, [facility] [address], [place] [address]- 7383 June, Elevated blood pressure reading without diagnosis of hypertension 796.2 [facility] [address] [address]- 4690 June, [facility] [id number] 1358 June, [facility] [address] 8863 June, [facility] [address] 0729 June, [facility] [place] [facility] [address] [id number] [place] [address]- 6436 14 May, 2014 [facility] [place] [facility] [address] [id number] [place] [address]- 2271 May, [facility] [place] [facility] [address] [id number] [place] [address]- 2954 Apr, [facility] [place] [facility] [address] [id number] [place] [address]- 6235 Apr, [facility] [place] [facility] [address] [id number] [place] [address]- 5134 Apr, [facility] [place] [facility] [address] [id number] [place] [address]- 7571 Apr, [facility] [place] [facility] [address] [id number] [place] [address]- 6913 Apr, [facility] [place] [facility] [address] [id number] [place] [address]- 9433 Apr, [facility] [place] [facility] [address] [id number] [place] [address]- 8920 Apr, [facility] [place] [facility] [address] [id number] [place] [address]- 1120 Apr, [facility] [place] [facility] [address] [id number] [place] [address]- 5275 Apr, [facility] [place] [facility] [address] [id number] [place] [address]- 2654 Apr, [facility] [place] [facility] [address] [id number] [place] [address]- 6572 Apr, [facility] [place] [facility] [address] [id number] [place] [address]- 2038 Apr, [facility] [place] [facility] [address] [id number] [place] [address]- 6088 Apr, [facility] [place] [facility] [address] [facility] [id number] [place] [address]- 6431 24 Apr, 2014 [facility] [place] [facility] [address] [id number] [place] [address] 2546 Apr, 2014 [facility] [place] [facility] [address] [facility] [id number] [place] [address] 2546 23 Apr, 2014 [facility] [place] [facility] [address] [facility] [id number] [place] [address]- 6837 20 Apr, 2014 [facility] [place] [facility] [address] [facility] [id number] [place] [address]- 2549 20 Apr, 2014 [facility] [place] [facility] [address] [facility] [id number] [place] [address]- 4557 18 Apr, 2014 [facility] [place] [facility] [id number] [address]- 3263 18 Apr, 2014 [facility] [place] [facility] [id number] [address]- 2267 13 Apr, 2014 [facility] [place] [facility] [address] [facility] [id number] [place] [address]- 8567 13 Apr, 2014 [facility] [place] [facility] [id number] [place] [address]- 7966 13 Apr, 2014 [facility] [place] [facility] [id number] [address]- 2123 13 Apr, 2014 [facility] [place] [facility] [address] [facility] [id number] [address]- 2541 12 Apr, 2014 [facility] [place] [facility] [address] [facility] [id number] [place] [address]- 2540 12 Apr, 2014 [facility] [place] [facility] [address] [facility] [id number] [place] [address]- 3111 06 Apr, 2014 [facility] [place] [facility] [address] [facility] [id number], [place] [address]- 2540 06 Apr, 2014 [facility] [place] [facility] [id number] [address]- 0830 Apr, 2014 [facility] [place] [facility] [address] [id number] [place] [address]- 5038 Apr, [facility] [place] [facility] [address] [id number] [place] 2628 Apr, [facility] [place] [facility] [address] [id number] [place] [address]- 3285 Apr, [facility] [place] [facility] [address] [id number] [place] [address]- 7645 Apr, [facility] [place] [facility] [address] [id number] [place] [address]- 5491 Mar, [facility] [place] [facility] [address] [id number] [place] [address]- 8703 Mar, [facility] [place] [facility] [address] [id number] [place] [address]- 4861 Mar, [facility] [place] [facility] [address] [id number] [place] [address]- 9818 Mar, [facility] [place] [facility] [address] [id number] [place] [address]- 9886 Mar, [facility] [place] [facility] [address] [facility] [id number] [place] [address]- 6820 Mar, [facility] [place] [facility] [address] [id number] [place] [address]- 6073 Mar, [facility] [place] [facility] [address] [id number] [place] [address]- 9558 Mar, [facility] [place] [facility] [address] [id number] [place] [address]- 7679 Mar, [facility] [place] [facility] [address] [id number] [place] [address]- 1018 Mar, [facility] [place] [facility] [address] [id number] [place] [address]- 8254 Jan, [facility] [place] [facility] [address] [id number] [place] [address]- 1553 Jan, [facility] [place] [facility] [address] [id number] [place] [address]- 7018 Jan, [facility] [place] [facility] [address] [id number] [place] [address]- 9299 Jan, [facility] [place] [facility] [address] [id number] [place] [address]- 7261 Jan, [facility] [place] [facility] [address] [id number] [place] [address]- 3006 Jan, [facility] [place] [facility] [address] [id number] [place] [address]- 6338 Jan, [facility] [place] [facility] [address] [id number] [place] [address]- 3103 Jan, [facility] [place] [facility] [address] [id number] [place] [address]- 4254 Jan, [facility] [place] [facility] [address] [id number] [place] [address]- 8700 Jan, [facility] [place] [facility] [address] [id number] [place] [address]- 8714 Jan, [facility] [place] [facility] [address] [id number] [place] [address]- 8184 Jan, [facility] [place] [facility] [address] [id number] [place] [address]- 1646 Dec, [facility] [place] [facility] [address] [id number] [place] [address]- 2019 Dec, [facility] [place] [facility] [address] [id number] [place] [address]- 4879 Dec, [facility] [place] [facility] [address] [id number] [place] [address]- 4062 Dec, [facility] [place] [facility] [address] [id number], [place] [address]- 6525 Dec, [facility] [place] [facility] [address] [id number] [place] [address]- 2667 14 Dec, 2013 [facility] [place] [facility] [address] [id number] [place] [address]- 5345 Dec, [facility] [place] [facility] [address] [id number] [place] [address]- 1544 Dec, [facility] [place] [facility] [address] [id number] [place] [address]- 9165 Dec, [facility] [place] [facility] [address] [id number] [place] [address]- 1403 Dec, [facility] [place] [facility] [address] [id number] [place] [address]- 3975 Nov, [facility] [place] [facility] [address] [id number] [place] [address]- 1226 Nov, [facility] [place] [facility] [address] [id number] [place] [address]- 8798 Nov, [facility] [place] [facility] [address] [id number] [place] [address]- 9558 Nov, [facility] [place] [facility] [address] [id number] [place] [address]- 3632 Nov, [facility] [place] [facility] [address] [id number], [place] [address]- 9704 Nov, [facility] [place] [facility] [address] [id number], [place] [address]- 5467 Nov, [facility] [place] [facility] [address] [id number] [place] [address]- 5158 Nov, [facility] [place] [facility] [address] [id number], [place] [address]- 4184 Nov, [facility] [place] [facility] [address] [id number] [place] [address]- 1613 Nov, [facility] [place] [facility] [address] [id number] [place] [address]- 1058 17 Nov, 2013 [facility] [place] [facility] [address] [id number] [place] [address]- 4303 17 Nov, 2013 [facility] [place] [facility] [address] [id number] [place] [address]- 0248 14 Nov, 2013 [facility] [place] [facility] [address] [id number] [place] [address]- 5982 14 Nov, 2013 [facility] [place] [facility] [address] [id number] [place] [address]- 3940 10 Nov, 2013 [facility] [place] [facility] [address] [id number] [place] [address]- 3444 10 Nov, 2013 [facility] [place] [facility] [address] [id number] [place] [address]- 9556 08 Nov, 2013 [facility] [place] [facility] [address] [id number] [place] [address]- 9307 08 Nov, 2013 [facility] [place] [facility] [address] [id number] [place] [address]- 9399 Nov, [facility] [place] [facility] [address] [id number] [place] [address]- 9591 03 Nov, 2013 [facility] [place] [facility] [address] [id number] [place] [address]- 8584 26 Oct, 2013 [facility] [place] [facility] [address] [id number] [place] [address]- 7144 26 Oct, 2013 [facility] [place] [facility] [address] [id number] [place] [address]- 0920 19 Oct, 2013 [facility] [place] [facility] [address] [id number] [place] [address]- 6340 19 Oct, 2013 [facility] [place] [facility] [address] [id number] [place] [address]- 4934 12 Oct, 2013 [facility] [place] [facility] [address] [id number] [place] [address]- 6625 Oct, [facility] [place] [facility] [address] [id number] [place] [address]- 4652 Oct, [facility] [place] [facility] [address] [id number] [place] [address]- 1315 Oct, [facility] [place] [facility] [address] [id number] [place] [address]- 3378 Oct, [facility] [place] [facility] [address] [id number] [place] [address]- 5858 Oct, [facility] [place] [facility] [address] [id number] [place] [address]- 2571 Sep, [facility] [place] [facility] [address] [id number] [place] [address]- 2442 Sep, [facility] [place] [facility] [address] [id number] [place] [address]- 3895 Sep, [facility] [place] [facility] [address] [id number] [place] [address]- 2775 Sep, [facility] [place] [facility] [address] [id number] [place] [address]- 3788 Sep, [facility] [place] [facility] [address] [id number] [place] [address]- 8052 Sep, [facility] [place] [facility] [address] [id number] [place] [address]- 9949 Sep, [facility] [place] [facility] [address] [id number] [place] [address]- 1189 Sep, [facility] [place] [facility] [address] [id number] [place] [address]- 2375 Sep, [facility] [place] [facility] [address] [id number] [place] [address]- 4769 Sep, [facility] [place] [facility] [address] [id number] [place] [address]- 3373 Sep, [facility] [place] [facility] [address] [id number] [place] [address]- 9942 Sep, [facility] [place] [facility] [address] [id number] [place] [address]- 0659 Sep, [facility] [place] [facility] [address] [id number] [place] [address]- 7933 Sep, [facility] [place] [facility] [address] [id number] [place] [address]- 7513 Sep, [facility] [place] [facility] [address] [id number] [place] [address]- 4457 Sep, [facility] [place] [facility] [address] [id number] [place] [address]- 8953 Sep, [facility] [place] [facility] [address] [id number] [place] [address]- 2566 Sep, [facility] [place] [facility] [address] [id number] [place] [address]- 3432 Sep, [facility] [place] [facility] [address] [id number] [place] [address]- 3371 Sep, [facility] [place] [facility] [address] [id number] [place] [address]- 4895 Sep, [facility] [place] [facility] [address] [id number] [place] [address]- 5609 Sep, [facility] [place] [facility] [address] [id number] [place] [address]- 3188 Sep, [facility] [place] [facility] [address] [id number] [place] [address]- 1920 Sep, [facility] [place] [facility] [address] [id number] [place] [address]- 6810 Sep, [facility] [place] [facility] [address] [id number] [place] [address]- 9065 Aug, [facility] [place] [facility] [address] [id number] [place] [address]- 3632 Aug, [facility] [place] [facility] [address] [id number] [place] [address]- 6446 Aug, 2013 [facility] [place] [facility] [address] [id number] [place] [address]- 8018 Aug, [facility] [place] [facility] [address] [id number] [place] [address]- 4071 Aug, 2013 [facility] [place] [facility] [address] [id number] [place] [address]- 2831 Aug, 2013 [facility] [place] [facility] [address] [id number] [place] [address]- 2323 Aug, [facility] [place] [facility] [address] [id number] [place] [address]- 8326 Aug, [facility] [place] [facility] [address] [id number] [place] [address]- 7679 Aug, [facility] [place] [facility] [address] [id number] [place] [address]- 7461 Aug, [facility] [place] [facility] [address] [id number] [place] [address] Aug, [facility] [place] [facility] [address] [id number] [place] [address] Aug, [facility] [place] [facility] [address] [id number] [place] [address] Aug, [facility] [place] [facility] [address] [id number] [place] [address] Jul, [facility] [place] [facility] [address] [id number] [place] [address] Jul, [facility] [place] [facility] [address] [id number] [place] [address] Jul, [facility] [place] [facility] [address] [id number] [place] [address] Jul, [facility] [place] [facility] [address] [id number] [place] [address] 9499 Jul, [facility] [place] [facility] [address] [id number] [place] [address] Jul, [facility] [place] [facility] [address] [id number] [place] [address] Jul, [facility] [place] [facility] [address] [id number] [place] [address] June, [facility] [place] [facility] [address] [id number] [place] [address] June, [facility] [place] [facility] [address] [id number] [place] [address] 8024 June, [facility] [place] [facility] [address] [id number] [place] [address] 6062 June, [facility] [place] [facility] [address] [id number] [place] [address]- 28[address] May, [facility] [place] [facility] [address] [id number] [place] [address] 3070 May, [facility] [place] [facility] [address] [id number] [place] [address] May, [facility] [place] [facility] [address] [id number] [place] [address]263 May, [facility] [place] [facility] [address] [id number], [place] [address] May, [facility] [place] [facility] [address] [id number], [place] [address] May, [facility] [place] [facility] [address] [id number] [place] [address]- [address] May, [facility] [place] [facility] [address] [id number] [place] [address]- [address] May, [facility] [place] [facility] [address] [id number] [place] [address]- [address]562 May, [facility] [place] [facility] [address] [id number] [place] [address]- 9546 May, [facility] [place] [facility] [address] [id number] [place] [address] 4464 Apr, [facility] [place] [facility] [address] [id number] [place] [address]- 1476 Apr, [facility] [place] [facility] [address] [id number] [place] [address]- 9769 Apr, [facility] [place] [facility] [address] [id number] [place] [address]- 2778 Apr, [facility] [place] [facility] [address] [id number] [place] [address]- [address]33 Apr, [facility] [place] [facility] [address] [id number] [place] [address]- [address]229 Apr, [facility] [place] [facility] [address] [id number] [place] [address]- 2847 Apr, [facility] [place] [facility] [address] [id number] [place] [address] 5874 Apr, [facility] [place] [facility] [address] [facility] [id number] [place] [address]- 45[address] Apr, [facility] [place] [facility] [address] [facility] [id number] [place] [address]- [address] Apr, [facility] [place] [facility] [address] [facility] [id number] [place] [address]648 Mar, [facility] [place] [facility] [address] [id number] [place] [address]- 0746 Mar, [facility] [place] [facility] [address] [id number] [place] [address]- 6034 Mar, [facility] [place] [facility] [address] [facility] [id number] [place] [address] Mar, [facility] [place] [facility] [address] [facility] [id number] [place] [address] Mar, [facility] [address] [id number] [place] [address] Mar, [facility] [place] [facility] [address] [id number] [place] [address]- 4547 Jan, [facility] [place] [facility] [address] [facility] [id number] [place] [address]- 1745 Jan, [facility] [place] [facility] [address] [id number] [place] [address]- 0[address] Jan, [facility] [address] [id number] [place] [address]- 7085 Jan, [facility] [place] [facility] [address] [id number] [place] [address]- 3676 Jan, [facility] [place] [facility] [address] [facility] [id number] [place] [address]- 8525 Jan, [facility] [place] [facility] [address] [id number] [place] [address]- 5381 Jan, [facility] [place] [facility] [address] [id number] [place] [address]- 4784 Jan, [facility] [place] [facility] [address] [facility] [id number] [place] [address]- 5067 Jan, [facility] [place] [facility] [address] [id number], [place] [address] 9[address] Dec, [facility] [place] [facility] [address] [id number], [place] [address] Dec, [facility] [place] [facility] [address] [id number], [place] [address]- [address] Dec, [facility] [place] [facility] [address] [id number], [place] [address]- 8765 Dec, [facility] [place] [facility] [address] [facility] [id number], [place] [address] Dec, [facility] [place] [facility] [address] [id number] [place] [address]- 6067 Dec, [facility] [place] [facility] [address] [id number] [place] [address]- 9731 Dec, [facility] [place] [facility] [address] [id number] [place] [address] Dec, [facility] [place] [facility] [address] [id number] [place] [address]- 5503 Dec, [facility] [place] [facility] [address] [id number] [place] [address]- 5066 Dec, [facility] [place] [facility] [address] [id number] [place] [address] Dec, [facility] [place] [facility] [address] [id number] [place] [address] Nov, [facility] [place] [facility] [address] [id number] [place] [address] 59[address] Nov, [facility] [place] [facility] [address] [id number] [place] [address] 45[address] Nov, [facility] [place] [facility] [address] [id number] [place] [address]37 Nov, [facility] [place] [facility] [address] [facility] [id number] [place] [address] Nov, [facility] [place] [facility] [address] [id number] [place] [address]157 Oct, [facility] [place] [facility] [address] [id number] [place] [address] 9484 Oct, [facility] [place] [facility] [address] [id number] [place] [address] Sep, [facility] [place] [facility] [address] [id number] [place] [address] 3738 Aug, [facility] [place] [facility] [address] [id number] [place] [address] 8924 Aug, [facility] [place] [facility] [address] [id number] [place] [address] 6242 Aug, [facility] [address] [id number] [place] [address] 6314 Aug, [facility] [address] [id number] [place] [address] 8640 Jul, [facility] [address] [id number] [place] [address] Jul, [facility] [address] [id number] [place] [address] 6528 June, [facility] [address] [id number] [place] [address] 7764 June, [facility] [address] [id number] [place] [address] 0370 June, [facility] [address] [id number] [place] [address]- 7597 May, [facility] [address] [id number] [place] [address] 1981 May, [facility] [address] [id number] [place] [address] 8104 May, [facility] [address] [id number] [place] [address]- 0074 Apr, [facility] [address] [id number] [place] [address]- 4676 18 Apr, 2012 [facility] [address] [id number] [place] [address]- 0269 15 Apr, 2012 [facility] [place] [facility] [address] [id number] [place] [address]- 2239 14 Apr, 2012 [facility] [address] [id number] [place] [address]- 8043 12 Apr, 2012 [facility] [address] [id number] [place] [address]- 5103 Apr, [facility] [address] [id number] [place] [address]- 6376 Apr, [facility] [address] [id number] [place] [address]- 7576 Apr, [facility] [address] [id number] [place] [address]- 1206 Apr, [facility] [address] [id number] [place] [address]- 4159 20 Apr, 2012 [facility] [address] [id number] [place] [address]- 5996 Apr, [facility] [address] [id number] [place] [address]- 9238 07 Apr, 2012 [facility] [address] [id number] [place] [address]- 3397 07 Apr, 2012 [facility] [address] [id number] [place] [address]- 6990 Mar, [facility] [address] [id number] [place] [address] 1993 Mar, [facility] [address] [facility] [id number] [place] [address]- 5128 16 Mar, 2012 [facility] [address] [id number] [place] [address] 2548 Mar, [facility] [place] [facility] [address] [id number] [place] [address] 5982 Mar, [facility] [place] [facility] [address] [id number] [place] [address]- 7321 Jan, [facility] [place] [facility] [address] [id number] [place] [address]- 2542 Jan, [facility] [address] [id number] [place] [address]- 7387 Jan, [facility] [place] [facility] [address] [id number] [place] [address]- 4851 Jan, [facility] [address] [id number] [place] [address]- 4416 14 Jan, 2012 [facility] [place] [facility] [address] [id number] [place] [address]- 6586 13 Jan, 2012 [facility] [place] [facility] [address] [id number] [place] [address]- 4773 13 Jan, 2012 [facility] [address] [id number] [place] [address]- 0802 Jan, [facility] [address] [id number] [place] [address]- 2892 Jan, [facility] [address] [id number] [place] [address]- 4929 Jan, [facility] [address] [id number] [place] [address]- 9634 Jan, [facility] [address] [id number] [place] [address]- 3673 Jan, [facility] [address] [id number] [place] [address]- 5768 Jan, [facility] [place] [facility] [address] [id number] [place] [address]- 0251 Jan, [facility] [place] [facility] [address] [id number] [place] [address]- 8167 Dec, [facility] [place] [facility] [address] [id number] [place] [address]- 4534 Dec, [facility] [place] [facility] [address] [id number] [place] [address]- 5493 Dec, [facility] [place] [facility] [address] [id number] [place] [address]- 7352 Dec, [facility] [place] [facility] [address] [id number] [place] [address]- 2412 15 Jan, 2012 [facility] [place] [facility] [address] [id number] [place] [address]- 2800 15 Jan, 2012 [facility] [place] [facility] [address] [id number] [place] [address]- 0553 14 Jan, 2012 [facility] [place] [facility] [address] [id number] [place] [address]- 3416 14 Jan, 2012 [facility] [place] [facility] [address] [id number] [place] [address]- 2010 14 Jan, 2012 [facility] [place] [facility] [address] [id number] [place] [address]- 4411 14 Jan, 2012 [facility] [place] [facility] [address] [id number] [place] [address]- 7600 07 Jan, 2012 [facility] [place] [facility] [address] [id number] [place] [address]- 4562 07 Jan, 2012 [facility] [place] [facility] [address] [id number] [place] [address]- 7596 16 Dec, 2011 [facility] [place] [facility] [address] [id number] [place] [address]- 7408 16 Dec, 2011 [facility] [place] [facility] [address] [id number] [place] [address]- 2305 13 Nov, 2011 [facility] [place] [facility] [address] [id number] [place] [address]- 1388 13 Nov, 2011 [facility] [place] [facility] [address] [id number] [place] [address]- 1088 13 Nov, 2011 [facility] [place] [facility] [address] [id number] [place] [address]- 8535 12 Nov, 2011 [facility] [place] [facility] [address] [id number] [place] [address]- 1182 30 Oct, 2011 [facility] [place] [facility] [address] [id number] [place] [address]- 9903 Sep, [facility] [place] [facility] [address] [id number] [place] [address]- 1456 Aug, [facility] [address] [id number] [place] [address]- 0834 Aug, [facility] [address] [id number] [place] [address]- 2546 Aug, [facility] [address] [id number] [place] [address]- 2162 Aug, [facility] [address] [id number] [place] [address] 2546 June, [facility] [address] [id number] [place] [address]- 0786 June, [facility] [address] [id number] [place] [address]- 6726 May, [facility] [address] [id number] [place] [address]- 9427 Apr, [facility] [address] [id number] [place] [address]- 4663 Apr, [facility] [address] [id number] [place] [address]- 4876 Apr, [facility] [address] [id number] [place] [address]- 5756 Apr, [facility] [address] [id number] [place] [address]- 2546 Apr, [facility] [address] [id number] [place] [address]- 2546 Apr, [facility] [place] [facility] [address] [id number] [place] [address]- 2546 Mar, [facility] [place] [facility] [address] [id number] [place] [address]- 2546 Mar, [facility] [place] [facility] [address] [id number] [place] [address]- 1078 Mar, [facility] [place] [facility] [address] [id number] [place] [address]- 0442 Jan, [facility] [place] [facility] [address] [id number] [place] [address]- 7554 Jan, [facility] [place] [facility] [address] [id number] [place] Jan, [facility] [place] [facility] [address] [id number] [place] [address]- 5459 Jan, [facility] [place] [facility] [address] [id number] [place] [address]- 4474 Jan, [facility] [place] [facility] [address] [id number] [place] [address]- 2472 Jan, [facility] [place] [facility] [address] [id number] [place] [address]- 4979 Jan, [facility] [place] [facility] [address] [id number] [place] [address]- 3901 Dec, [facility] [place] [facility] [address] [id number] [place] [address]- 6278 Dec, [facility] [place] [facility] [address] [id number] [address]- [address] Nov, [facility] [place] [facility] [address] [id number] [place] [address]- 2732 Nov, [facility] [place] [facility] [address] [id number], [place] [address]- 0502 Nov, [facility] [place] [facility] [address] [id number] [place] [address]- 1970 Nov, [facility] [place] [facility] [address] [id number] [address] Oct, [facility] [place] [facility] [address] [id number] [place] [address]- 2690 Sep, [facility] [place] [facility] [address] [id number] [place] [address]- 6787 10 Mar, 2010 [facility] [address] [id number] [place] [address]- 8341 Jan, [facility] [place] [facility] [address] [id number] [place] [address]- 3496 Dec, [facility] [place] [facility] [address] [id number] [place] [address]- 7176 Dec, [facility] [place] [facility] [address] [id number] [place] [address]- 9391 Dec, [facility] [place] [facility] [address] [id number] [place] [address]- 4631 Dec, [facility] [place] [facility] [address] [id number] [place] [address]- 0239 26 Nov, 2009 [facility] [place] [facility] [address] [id number] [place] [address]- 2320 15 Nov, 2009 [facility] [place] [facility] [address] [id number] [place] [address]- 9017 14 Nov, 2009 [facility] [place] [facility] [address] [id number] [place] [address]- 5087 14 Nov, 2009 [facility] [place] [facility] [address] [facility] [id number] [place] [address]- 5558 13 Oct, 2009 [facility] [place] [facility] [address] [id number] [place] [address]- 2533 17 Jul, 2009 [facility] [place] [facility] [address] [id number] [place] [address]- 4338 June, [facility] [place] [facility] [address] [id number] [place] [address]- 3989 14 Jun, 2009 [facility] [place] [facility] [address] [id number] [place] [address]- 6741 17 Apr, 2009 [facility] [place] [facility] [address] [id number], [place] [address]- 3353 Mar, [facility] [id number] [address]- 5451 Jan, [facility] [id number] [address] Jan, [facility] [id number], [place] [address]- 1172 Dec, [facility] [id number] [place] [address]1886- 6728 Dec, [facility] [id number] [place] [address] 96165- 1878 Dec, [facility] [id number] [place] [address] [id number]- 1306 Dec, [facility] [id number] [place] [address] 356725- 8883 Nov, [facility] [id number] [place] [address] 57[address]- 9949 Jul, [facility] [id number], [place] [address]- 9194 June, IMMUNIZATIONS No Known Immunizations SOCIAL HISTORY Never Assessed REASON FOR VISIT Blood Pressure--Milton Pt states he got a sample of Stiolto Respimat and this has helped with his breathing. , Scheduled for right shoulder surgery on PLAN OF CARE Activity Details Follow Up 4 Weeks Reason:Depression VITAL SIGNS Height 69 in 2018-02-17 Weight 343.0 lbs 2018-02-17 Temperature 98.2 degrees Fahrenheit 2018-02-17 Heart Rate 76 bpm 2018-02-17 Respiratory Rate 20 2018-02-17 BMI 50.65 kg/m2 2018-02-17 Blood pressure systolic 136 mmHg 2018-02-17 Blood pressure diastolic 84 mmHg 2018-02-17 MEDICATIONS Medication Instructions Dosage Frequency Start Date End Date Duration Status Garlic 1,000 mg 3 Capsule 2 times per day Dec, Active Tizanidine HCl 4 MG Orally 3 times a day 1 tablet as needed 8h 90 days Active Allopurinol 100 MG TAKE 1 TABLET BY MOUTH DAILY 30 Active DiphenhydrAMINE HCl 50 MG Orally Once a day 1 capsule at bedtime as needed 24h Active Viagra 25 MG Orally 0.5-4 hours before intercourse, up to once per day 1 tablet Sep, Active Nystatin 269347 UNIT/GM Externally Twice a day 1 application to affected area 12h June, Active ProAir HFA 108 (90 Base) MCG/ACT Inhalation every 6 hrs 2 puffs as needed 6h Apr, Active Fluticasone Propionate 50 MCG/ACT INSTILL 1 SPRAY INTO EACH NOSTRIL ONCE A DAY 60 Active Diclofenac Sodium 75 MG TAKE 1 TABLET WITH FOOD OR MILK TWICE DAILY 90 Active Docusate Sodium 100 MG Orally Once a day 1 capsule as needed 24h Active Flomax 0.4 MG 1 capsule 30 minutes after the same meal each day twice a day Orally 90 days 90 Active Fluoxetine HCl 40 mg Orally Once a day 1 capsule 24h 19 Jan, 2018 90 days Active Multivitamin BID May, Active Clonazepam 1 MG Orally Once a day as needed for anxiety 1 tablet June, 28 days Active Clobetasol Propionate 0.05 % Externally Twice a day 1 application to affected area 12h Sep, Active Stiolto Respimat 2.5-2.5 MCG/ACT Inhalation Once a day 2 puffs 24h Active Omeprazole 20 MG TAKE 1 CAPSULE BY MOUTH TWICE DAILY 90 Active Endocet 10-325 MG Orally every 4-6 hours 1 tablet as needed Jan, Active Metoprolol Tartrate 25 MG TAKE 1 TABLET BY MOUTH TWICE A DAY 30 Active RESULTS No Results PROCEDURES No Known procedures INSTRUCTIONS MEDICATIONS ADMINISTERED No Known Medications MEDICAL (GENERAL) HISTORY Type Description Date Medical History hypertension Medical History sleep apnea-did not tolerate CPAP Medical History oxygen dependent at [facility] Medical History colonic polyps Medical History [...]
--- OUTSIDE RECORDS SUMMARY | 2018-02-26 19:37 | XMS REPORT ---
Author Author CHRIS STEVENSON [facility] Address [address] [place] [address] Care Team Providers Care Material Attendant Name Role Phone GRAHAMELLIOTT HANNAHANY Unavailable PROBLEMS Type Condition ICD9-CM Code SGQ93-UP Code Onset Dates Condition Status SNOMED Code Problem Pulmonary asbestosis J61 Active 79472392 Problem Left ventricular diastolic dysfunction I51.9 Active 735619962 Problem Renal cyst, left N28.1 Active 65090881 Problem History of weight loss surgery Z98.84 Active 703485593 Problem Nocturnal hypoxia G47.34 Active 156906789 Problem Obstructive sleep apnea syndrome G47.33 Active 78530814 Problem Nephrolithiasis N20.0 Active 79523715 Problem Allergic rhinitis, unspecified allergic rhinitis type J30.9 Active 76744256 Problem 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 Active 21397648 Problem History of diverticulitis Z87.19 Active 951887441481047 Problem Hammertoe of left foot M20.42 Active 533515413 Problem Erectile dysfunction due to diseases classified elsewhere N52.1 Active 506651628 Problem Anxiety F41.9 Active 03105460 Problem Psoriasis L40.9 Active 1973166 Problem Essential hypertension I10 Active 68083891 Problem Moderate episode of recurrent major depressive disorder F33.1 Active 182605724 Problem Chronic prescription opiate use Z79.899 Active 899144949 Problem Acute right-sided low back pain with right-sided sciatica M54.41 Active 629576311 Problem Benign prostatic hyperplasia, presence of lower urinary tract symptoms unspecified, unspecified morphology N40.0 Active 611329569 Problem Low back pain M54.5 Active 961265906 Problem Cervicalgia M54.2 Active 4576914032917 Problem Urge incontinence N39.41 Active 711707847 Problem Age-related osteoporosis without current pathological fracture M81.0 Active 31733789 Problem Esophageal stricture K22.2 Active 06237149 Problem Chronic gout, unspecified cause, unspecified site M1A.9XX0 Active 73349315 Problem Primary insomnia F51.01 Active 304931840 Problem Hyperlipidemia, unspecified E78.5 Active 76906733 ALLERGIES No Information ENCOUNTERS Encounter Location Date Diagnosis [place] [id number] [place] [address] 53728- 2782 Mar, [facility] [id number] [place] [address] 15897- 4191 Jan, [facility] [address] 23020- 0254 Jan, [facility] [address] 74609- 4859 Jan, [place] [address] 43256- 3203 Dec, Anxiety F41.9 [place] [address] 46972- 1393 Dec, [facility] [id number] [place] [address] 62752- 0303 Dec, Anxiety F41.9 [place] [address] 65856- 2256 Dec, [place] [id number] [place] [address] 34021- 6878 Dec, Encounter for immunization Z23 [facility] [id number] [place] [address] 90073 -7495 Dec, [facility] [id number] [place] [address] 79777- 3542 Dec, Hammertoe of left foot M20.42 ; Edema of left foot R60.0 and Onychomycosis B35.1 [facility] [id number] [place] [address] 48633 -4520 Nov, BMI 50.0-59.9, adult Z68.43 [facility] [address] [place] [address]- 2162 Nov, [facility] [id number] [place] [address] 59666- 6963 Nov, [facility] [id number] [place] [address] 63111- 5050 Nov, Anxiety F41.9 [facility] [id number] [place] [address] 40151- 4532 Oct, [facility] [id number] [place] [address] 03888- 1967 Oct, [facility] [id number] [place] [address] 04581- 9210 Oct, BMI 45.0-49.9, adult Z68.42 ; Essential hypertension I10 ; Hyperlipidemia, unspecified E78.5 ; Anxiety F41.9 ; Obstructive sleep apnea syndrome G47.33 ; Moderate episode of recurrent major depressive disorder F33.1 ; Left ventricular diastolic dysfunction I51.9 ; Acute pain of right shoulder M25.511 ; Pain of left foot M79.672 and Pain in right foot M79.671 [facility] [id number] [place] [address] 79056- 7054 Oct, Anxiety F41.9 [facility] [id number] [place] [address] 17515 -0847 Sep, Left foot pain M79.672 [facility] [id number] [place] [address] 62040- 4985 Sep, [facility] [id number] [place] [address] 74237- 6752 Sep, Anxiety F41.9 [facility] [id number] [place] [address] 65330- 4051 Sep, [facility] [id number] [place] [address] 84323- 8714 Aug, [facility] [address] [place] [address] 7459 Aug, [facility] [id number] [place] [address] 80477- 6965 Aug, Anxiety F41.9 [facility] [id number] [place] [address] 245187- 1336 Aug, [facility] [id number] [place] [address] 69038- 3715 Jul, [facility] [id number] [place] [address] 94859- 6357 Jul, Anxiety F41.9 [facility] [id number] [place] [address] 44210- 1589 June, Anxiety F41.9 [facility] [id number] [place] [address] 83915- 4056 June, [facility] [id number] [place] [address] 76008- 2455 June, Low back pain M54.5 ; Chronic prescription opiate use Z79.899 ; Candidal intertrigo B37.2 ; Urge incontinence N39.41 ; Essential hypertension I10 ; Moderate episode of recurrent major depressive disorder F33.1 ; Age-related osteoporosis without current pathological fracture M81.0 and BMI 45.0-49.9, adult Z68.42 [facility] [address] [address] 1126 June, [facility] [id number] [place] [address] 57492- 3925 May, Anxiety F41.9 [facility] [id number] [place] [address] 065294- 6526 May, [facility] [id number] [place] [address] 796084- 5636 May, [facility] [id number] [place] [address] 104026- 1614 Apr, Anxiety F41.9 [facility] [address] [address]- 3710 Apr, [facility] [id number] [place] [address] 51541- 9653 Apr, Low back pain M54.5 [facility] [id number] [place] [address] 73844- 5909 Apr, [facility] [id number] [place] [address] 73771- 8656 Apr, [facility] [id number] [place] [address] 76050- 0500 Apr, Anxiety F41.9 [facility] [id number] [place] [address] 73291- 6295 Apr, Right groin pain R10.31 [facility] [id number] [place] [address] 62973- 7475 Mar, [facility] [id number] [place] [address] 85466- 5676 Mar, [facility] [id number] [place] [address] 78862- 6981 Mar, Anxiety F41.9 [facility] [id number] [place] [address] 95948- 2727 Mar, Low back pain M54.5 [facility] [id number] [place] [address] 44975- 9522 Mar, Right groin pain R10.31 ; Low back pain M54.5 and BMI 45.0- 49.9, adult Z68.42 [facility] [id number] [place] [address] 18620- 1171 Mar, [facility] [id number] [place] [address] 68207- 9386 Mar, [facility] [id number] [place] [address] 04124- 8597 Mar, [facility] [id number] [place] [address] 81462 -2426 Mar, [facility] [id number] [place] [address] 43941 -8742 Mar, Cough R05 ; Pneumonia of right lower lobe due to infectious organism J18.1 and Abnormal chest x-ray R93.8 [facility] [id number] [place] [address] 44789- 2132 Mar, [place] [id number] [place] [address] 90596- 5757 Mar, [place] [id number] [place] [address] 14779- 1993 Jan, Anxiety F41.9 [place] [address] 05036- 4378 Jan, [place] [id number] [place] [address] 30091- 6453 Jan, Moderate episode of recurrent major depressive disorder F33.1 [place] [id number] [place] [address] 46118- 9374 Jan, Subacromial bursitis of right shoulder joint M75.51 ; Shortness of breath on exertion R06.02 and BMI 45.0-49.9, adult Z68.42 [place] [id number] [place] [address] 67560- 5988 Dec, Anxiety F41.9 [place] [id number] [place] [address] 68386- 5998 Dec, [place] [id number] [place] [address] 95248- 5981 Dec, Low back pain M54.5 [place] [address] 12103- 2559 Oct, Low back pain M54.5 [facility] [id number] [place] [address] 11171- 5865 Sep, [facility] [id number] [place] [address] 00563- 5453 Sep, Erectile dysfunction due to diseases classified elsewhere N52.1 [facility] [id number] [place] [address] 44429- 8124 Sep, Erectile dysfunction due to diseases classified elsewhere N52.1 [facility] [id number] [place] [address] 04784- 2274 Sep, [facility] [id number] [place] [address] 51047- 7664 Sep, Erectile dysfunction due to diseases classified elsewhere N52.1 [facility] [id number] [place] [address] 30822- 2875 Sep, Low back pain M54.5 and Anxiety F41.9 [facility] [id number] [place] [address] 56539 -8641 Aug, Acute allergic rhinitis J30.9 [facility] [id number] [place] [address] 47272- 3409 Aug, [facility] [id number] [place] [address] 28651- 2426 Aug, Anxiety F41.9 [facility] [id number] [place] [address] 47013- 2259 Jul, Low back pain M54.5 ; Chronic prescription opiate use Z79.899 and Essential hypertension I10 [facility] [id number] [place] [address] 76441- 6671 Jul, Anxiety F41.9 and Low back pain M54.5 [facility] [id number] [place] [address] 40756- 8177 June, [facility] [id number] [place] [address]- 8958 June, Anxiety F41.9 [facility] [id number] [place] [address] 61269- 7107 May, Low back pain M54.5 [facility] [id number] [place] [address] 87708- 3709 May, [facility] [address] 22414- 0273 May, Anxiety F41.9 [facility] [id number] [place] [address] 34805- 4452 Apr, [facility] [id number] [place] [address] 59909- 0575 Apr, Low back pain M54.5 [facility] [id number] [place] [address] 91282- 4603 Apr, Moderate episode of recurrent major depressive disorder F33.1 [facility] [id number] [place] [address] 89595- 8818 Apr, Anxiety F41.9 [facility] [id number] [place] [address] 94603- 6967 Apr, Low back pain M54.5 [facility] [id number] [place] [address] 10581- 1247 15 Apr, 2016 Elevated alkaline phosphatase level R74.8 [facility] [id number] [place] [address] 65310- 4652 10 Apr, 2016 Alkaline phosphatase elevation R74.8 [facility] [id number] [place] [address] 64874- 9024 06 Apr, 2016 Anxiety F41.9 [facility] [id number] [place] [address] 65521- 1827 03 Apr, 2016 Low back pain M54.5 [facility] [id number] [place] [address] 08848- 2541 03 Apr, 2017 History of weight loss surgery Z98.84 ; Encounter for hepatitis C screening test for low risk patient Z11.59 ; History of herpes genitalis Z86.19 ; Essential hypertension I10 ; Hyperlipidemia, unspecified E78.5 ; Exposure to STD Z20.2 and Benign prostatic hyperplasia, presence of lower urinary tract symptoms unspecified, unspecified morphology N40.0 [facility] [id number] [place] [address] 80680- 3636 02 Apr, 2016 [place] [id number] [place] [address] 61903- 7809 Mar, [place] [id number] [place] [address] 73926- 0541 Mar, [place] [id number] [place] [address] 92972- 5161 Mar, [facility] [id number] [place] [address] 40131- 3260 Mar, Acute right-sided low back pain with right-sided sciatica M54.41 [place] [id number] [place] [address] 32683- 5322 Mar, Low back pain M54.5 [facility] [id number] [place] [address] 12160 -9117 Mar, Muscle strain of chest wall, initial encounter S29.011A ; Muscle strain of right thigh, initial encounter S76.911A and Acute non- recurrent maxillary sinusitis J01.00 [facility] [id number] [place] [address] 07037- 3218 Mar, Benign prostatic hyperplasia, presence of lower urinary tract symptoms unspecified, unspecified morphology N40.0 [facility] [id number] [place] [address] 10402- 9879 Jan, Low back pain M54.5 [facility] [id number] [place] [address] 62631- 9837 Jan, Low back pain M54.5 ; Essential hypertension I10 ; Hyperlipidemia, unspecified E78.5 ; Anxiety F41.9 ; Moderate episode of recurrent major depressive disorder F33.1 ; Primary insomnia F51.01 ; Exposure to STD Z20.2 ; Encounter for hepatitis C screening test for low risk patient Z11.59 and History of herpes genitalis Z86.19 [facility] [id number] [place] [address] 82494- 0209 17 Jan, 2016 [facility] [address] 99581- 1378 Nov, [facility] [address] 18713- 8467 14 Dec, 2015 Anxiety F41.9 ; Cervicalgia M54.2 ; Moderate episode of recurrent major depressive disorder F33.1 and Encounter for immunization Z23 [facility] [address] 00594- 7243 23 Nov, 2015 [facility] [address] 31282- 7611 22 Nov, 2015 [facility] [address] 95971- 0765 16 Nov, 2015 [facility] [id number] [place] [address] 19702- 1039 09 Nov, 2015 [facility] [id number] [place] [address] 48083- 0020 Sep, [facility] [id number] [place] [address] 56199- 6551 Aug, Low back pain M54.5 ; Anxiety F41.9 ; Primary insomnia F51.01 and Chronic prescription opiate use Z79.899 [facility] [id number] [place] [address] 80053- 9066 Jul, [facility] [id number] [place] [address] 40015- 9198 Jul, [place] [address] [id number] [place] [address]- 7843 Jul, [facility] [address] [id number] [place] [address]- 8258 Jul, [facility] [address] [id number] [place] 9954 Jul, [facility] [address] [id number] [place] [address]- 8495 June, [facility] [address] [id number] [place] [address]- 6451 June, [facility] [address] [id number] [place] [address]- 5680 June, [facility] [address] [id number] [place] [address]- 6220 June, [facility] [address] [facility] [id number] [place] [address]- 3175 May, Preoperative cardiovascular examination Z01.810 [facility] [address] [id number] [place] [address]- 4015 May, [facility] [address] [facility] [id number] [place] [address]- 8066 Apr, [facility] [address] [id number] [place] [address]- 7144 Apr, Osteoarthritis of right knee M17.9 [facility] [address] [id number] [place] [address]- 3211 30 May, 2015 [facility] [address] [id number] [place] [address]- 5175 16 May, 2015 [facility] [address] [facility] [id number] [place] 0315 Apr, [facility] [address] [facility] [id number] [place] 8471 Apr, [facility] [id number] [place] [address] 58213- 3843 08 May, 2015 History of excessive cerumen Z78.9 ; Obstructive sleep apnea syndrome G47.33 ; History of diverticulitis Z87.19 and Nephrolithiasis N20.0 [facility] [id number] [place] [address] 60794- 4603 29 Apr, 2015 [facility] [address] 17160 -8444 Apr, Abdominal pain R10.9 [place] [address] 64952- 5392 Apr, [place] [address] 41608- 9871 Apr, Osteoarthritis of right knee M17.9 [place] [address] 99277- 7876 Mar, [facility] [id number] [place] [address] 48526- 0459 Mar, [place] [address] 42106- 1447 14 Mar, 2015 [place] [id number] [place] [address] 23231- 7534 Mar, [facility]ALK IN [facility] [id number] [place] [address] 91852 -6793 Mar, Pyelonephritis N12 ; Left-sided thoracic back pain M54.6 ; Hematuria, unspecified R31.9 and Kidney stone N20.0 [place] [id number] [place] [address] 54214- 2734 Mar, History of weight loss surgery Z98.84 [place] [id number] [place] [address] 73044- 0664 07 Mar, 2015 History of weight loss surgery Z98.84 and Hyperlipidemia, unspecified E78.5 [place] [id number] [place] [address] 92309- 0761 Mar, Low back pain M54.5 ; Chronic prescription opiate use Z79.899 ; Hyperlipidemia, unspecified E78.5 ; Spasm of back muscles M62.830 and History of weight loss surgery Z98.84 [facility] [id number] [place] [address] 50994- 1022 Jan, [facility] [address] 28798- 7905 Jan, [facility] [address] 59279- 5997 Jan, [facility] [address] 59651- 4504 Dec, [facility] [address] 44102- 3903 Dec, [facility] [address] 49971- 1800 Dec, [facility] [id number] [place] [address] 96127- 8667 Nov, [facility] [address] 99820- 3348 Nov, Obstructive sleep apnea syndrome G47.33 and Pharyngoesophageal dysphagia R13.14 [facility] [id number] [place] [address] 12790- 8032 Nov, [facility] [id number] [place] [address] [phone]- [phone] Nov, [facility] [address] [address] Nov, [facility] [id number] [place] [address] [id number] Oct, 2014 Dental examination V72.2 [facility] [address] [address] Oct, [facility] [id number] [place] [address] [phone]- [phone] Oct, [facility] [id number] [place] [address] [phone]- [phone] Oct, [facility] [id number] [place] [address] [phone]- [phone] Oct, [facility] [id number] [place] [address] [phone]- [phone] Oct, BPH (benign prostatic hyperplasia) 600.00 and Urinary frequency 788.41 [facility] [id number] [place] [address] [phone]- [phone] Oct, [facility] [id number] [place] [address] [phone]- [phone] Oct, [facility] [id number] [place] [address] [phone]- [phone] Oct, [facility] [id number] [place] [address] 66060- 4679 Sep, Cerumen impaction 380.4 ; Cerumen debris on tympanic membrane 380.4 ; Psoriasis 696.1 and MICKY (secretory otitis media) 381.4 [facility] [id number] [place] [address] [id number] Sep, Dental examination V72.2 [facility] [id number] [place] [address] [phone]- [phone] Sep, Fatigue 780.79 ; Irritable bowel syndrome 564.1 ; Overweight 278.02 ; Poor sleep V69.4 ; Shaking spells 781.0 and Broken tooth 873.63 [facility] [id number] [place] [address] [phone]- [phone] Sep, [facility] [id number] [place] [address] [phone]- [phone] Sep, [facility] [id number] [address] Aug, [facility] [id number] [address] Jul, [facility] [id number] [place] [address] Jul, [facility] [id number] [place] [address] [address] Jul, [facility] [address] [id number] [address] Jul, [facility] [id number] [place] [address] 4124 June, Arthritis of knee, right 716.96 [facility] [id number], [place] [address] June, [facility] [id number] [place] [address]862 June, Elevated blood pressure reading without diagnosis of hypertension 796.2 [facility] [id number] [address] June, [facility] [id number] [address] 164[address] June, [facility] [id number], [place] [address] 7[address] June, [facility] [id number] [address] June, [facility] [id number], [place] [address] 50[address] May, [facility] [id number], [place] [address] May, [facility] [address] [id number], [place] [address] Apr, [facility] [place] [facility] [address] [id number] [place] [address] 30 Apr, 2014 [facility] [place] [facility] [address] [id number] [place] [address]- 4252 Apr, [facility] [place] [facility] [address] [id number] [place] [address]- 4776 Apr, [facility] [place] [facility] [address] [id number] [place] [address]- 2095 Apr, [facility] [place] [facility] [address] [id number] [place] [address]- 7184 Apr, [facility] [place] [facility] [address] [id number] [place] [address]- 0260 Apr, [facility] [place] [facility] [address] [facility] [id number] [place] [address]- 3985 Apr, [facility] [place] [facility] [address] [id number] [place] [address]- 5831 Apr, 2014 [facility] [place] [facility] [address] [id number] [place] [address]- 5254 Apr, [facility] [place] [facility] [address] [id number] [place] [address]- 4346 Apr, [facility] [place] [facility] [address] [facility] [id number] [place] [address]- 8170 Apr, 2014 [facility] [place] [facility] [address] [facility] [id number] [place] [address]- 5969 Apr, 2014 [facility] [place] [facility] [address] [id number] [place] [address]- 8112 Apr, 2014 [facility] [place] [facility] [address] [id number] [place] [address]- 9755 Apr, 2014 [facility] [place] [facility] [address] [id number] [place] [address]- 2287 Apr, 2014 [facility] [place] [facility] [address] [facility] [id number] [place] [address]- 0232 Apr, 2014 [facility] [place] [facility] [address] [id number] [place] [address]- 5858 20 Apr, 2014 [facility] [place] [facility] [address] [id number] [place] [address]- 3309 18 Apr, 2014 [facility] [place] [facility] [address] [facility] [id number] [place] [address]- 8497 18 Apr, 2014 [facility] [place] [facility] [address] [facility] [id number] [place] [address]- 7990 13 Apr, 2014 [facility] [place] [facility] [address] [facility] [id number] [place] [address]- 3157 13 Apr, 2014 [facility] [place] [facility] [address] [facility] [id number] [place] [address]- 6411 13 Apr, 2014 [facility] [place] [facility] [address] [id number] [address] 9028 13 Apr, 2014 [facility] [place] [facility] [address] [facility] [id number] [place] [address]- 6857 12 Apr, 2014 [facility] [place] [facility] [address] [facility] [id number] [place] [address]- 5890 12 Apr, 2014 [facility] [place] [facility] [address] [facility] [address] [id number] [place] [address]- 1055 Apr, 2014 [facility] [place] [facility] [address] [facility] [id number] [place] [address]- 2540 Apr, 2014 [facility] [place] [facility] [address] [facility] [id number] [place] [address]- 2548 Apr, 2014 [facility] [place] [facility] [address] [facility] [id number] [place] [address]- 4767 Apr, 2014 [facility] [place] [facility] [address] [facility] [id number] [place] [address]- 254 Apr, 2014 [facility] [place] [facility] [address] [facility] [id number] [place] [address]- 2543 Apr, [facility] [place] [facility] [address] [id number] [place] [address]- 7224 Apr, [facility] [place] [facility] [address] [id number] [place] [address]- 7306 Mar, [facility] [place] [facility] [address] [facility] [id number] [place] [address]- 7028 Mar, [facility] [place] [facility] [address] [id number] [place] [address]- 8511 Mar, [facility] [place] [facility] [address] [id number] [place] [address]- 1471 Mar, [facility] [place] [facility] [address] [id number] [place] [address]- 9605 Mar, [facility] [place] [facility] [address] [id number] [place] [address]- 2941 Mar, [facility] [place] [facility] [address] [id number] [place] [address]- 5197 Mar, [facility] [place] [facility] [address] [id number] [place] [address]- 5312 Mar, [facility] [place] [facility] [address] [facility] [address] [id number] [place] [address]- 6838 Mar, [facility] [place] [facility] [address] [id number], [place] [address]- 5140 Mar, [facility] [place] [facility] [address] [id number], [place] [address]- 1824 Jan, [facility] [place] [facility] [address] [id number] [place] [address]- 0495 Jan, [facility] [place] [facility] [address] [facility] [id number] [place] [address]- 7829 Jan, [facility] [place] [facility] [address] [id number] [place] [address]- 2342 Jan, [facility] [place] [facility] [address] [id number] [place] [address]- 9216 Jan, [facility] [address] [id number] [place] [address]- 2454 Jan, [facility] [place] [facility] [address] [id number] [place] [address]- 4063 Jan, [facility] [place] [facility] [address] [id number] [place] [address]- 0203 Jan, [facility] [place] [facility] [address] [id number] [place] [address]- 9532 Jan, [facility] [place] [facility] [address] [id number] [place] [address]- 8364 Jan, [facility] [place] [facility] [address] [id number] [place] [address]- 7297 Jan, [facility] [place] [facility] [address] [id number] [place] [address]- 4958 Jan, [facility] [place] [facility] [address] [id number] [place] [address]- 1301 Dec, [facility] [place] [facility] [address] [id number] [place] [address]- 7586 Dec, [facility] [place] [facility] [address] [id number] [place] [address]- 1089 Dec, [facility] [place] [facility] [address] [id number] [place] [address]- 6091 Dec, [facility] [place] [facility] [address] [id number] [place] [address]- 0549 Dec, [facility] [place] [facility] [address] [id number] [place] [address]- 8644 Dec, [facility] [place] [facility] [address] [id number] [place] [address]- 9293 Dec, [facility] [place] [facility] [address] [id number] [place] [address]- 3977 Dec, [facility] [place] [facility] [address] [id number] [place] [address]- 9618 Dec, [facility] [place] [facility] [address] [id number] [place] [address]- 1936 Dec, [facility] [place] [facility] [address] [id number] [place] [address]- 9432 Nov, [facility] [place] [facility] [address] [id number] [place] [address]- 1556 Nov, [facility] [place] [facility] [address] [id number] [place] [address]- 5585 Nov, [facility] [place] [facility] [address] [id number] [place] [address]- 4220 Nov, [facility] [place] [facility] [address] [id number] [place] [address]- 7346 Nov, [facility] [place] [facility] [address] [id number] [place] [address]- 3027 Nov, [facility] [place] [facility] [address] [id number] [place] [address]- 5197 Nov, [facility] [place] [facility] [address] [id number] [place] [address]- 6756 Nov, [facility] [place] [facility] [address] [id number] [place] [address]- 1393 Nov, [facility] [place] [facility] [address] [id number], [place] [address]- 6097 24 Nov, 2013 [facility] [place] [facility] [address] [id number] [place] [address]- 8541 Nov, [facility] [place] [facility] [address] [id number] [place] [address]- 9597 17 Nov, 2013 [facility] [place] [facility] [address] [id number], [place] [address]- 3530 14 Nov, 2013 [facility] [place] [facility] [address] [id number], [place] [address]- 6976 14 Nov, 2013 [facility] [place] [facility] [address] [id number] [place] [address]- 8527 10 Nov, 2013 [facility] [place] [facility] [address] [id number] [place] [address]- 5544 10 Nov, 2013 [facility] [place] [facility] [address] [id number] [place] [address]- 3170 08 Nov, 2013 [facility] [place] [facility] [address] [id number] [place] [address]- 6363 08 Nov, 2013 [facility] [place] [facility] [address] [id number] [place] [address]- 7885 Nov, [facility] [place] [facility] [address] [id number] [place] [address]- 0649 Nov, [facility] [place] [facility] [address] [id number] [place] [address]- 0415 26 Oct, 2013 [facility] [place] [facility] [address] [id number] [place] [address]- 9903 26 Oct, 2013 [facility] [place] [facility] [address] [id number] [place] [address]- 9782 19 Oct, 2013 [facility] [place] [facility] [address] [id number] [place] [address]- 1385 19 Oct, 2013 [facility] [place] [facility] [address] [id number], [place] [address]- 5935 12 Oct, 2013 [facility] [place] [facility] [address] [id number], [place] [address]- 8227 12 Oct, 2013 [facility] [place] [facility] [address] [id number] [place] [address]- 6706 10 Oct, 2013 [facility] [place] [facility] [address] [id number] [place] [address]- 8367 10 Oct, 2013 [facility] [place] [facility] [address] [id number] [place] [address]- 7169 08 Oct, 2013 [facility] [place] [facility] [address] [id number] [place] [address]- 9099 Oct, [facility] [place] [facility] [address] [id number] [place] [address]- 7810 Sep, [facility] [place] [facility] [address] [id number] [place] [address]- 7650 Sep, [facility] [place] [facility] [address] [id number] [place] [address]- 2942 Sep, [facility] [place] [facility] [address] [id number] [place] [address]- 7856 Sep, [facility] [place] [facility] [address] [id number] [place] [address]- 0655 Sep, [facility] [place] [facility] [address] [id number] [place] [address]- 0361 Sep, [facility] [place] [facility] [address] [id number] [place] [address]- 7090 Sep, [facility] [place] [facility] [address] [id number] [place] [address]- 8278 Sep, [facility] [place] [facility] [address] [id number] [place] [address]- 7230 Sep, [facility] [place] [facility] [address] [id number] [place] [address]- 2835 Sep, [facility] [place] [facility] [address] [id number] [place] [address]- 5448 Sep, [facility] [place] [facility] [address] [id number] [place] [address]- 1867 Sep, [facility] [place] [facility] [address] [id number] [place] [address]- 2217 Sep, [facility] [place] [facility] [address] [id number] [place] [address]- 8430 Sep, [facility] [place] [facility] [address] [id number] [place] [address]- 3682 Sep, [facility] [place] [facility] [address] [id number] [place] [address]- 3156 Sep, [facility] [place] [facility] [address] [id number] [place] [address]- 3266 Sep, [facility] [place] [facility] [address] [id number] [place] [address]- 5221 Sep, [facility] [place] [facility] [address] [id number] [place] [address]- 3660 Sep, [facility] [place] [facility] [address] [id number] [place] [address]- 5495 Sep, [facility] [place] [facility] [address] [id number] [place] [address]- 7927 Sep, [facility] [place] [facility] [address] [id number] [place] [address]- 2030 Sep, [facility] [place] [facility] [address] [id number] [place] [address]- 8633 Sep, [facility] [place] [facility] [address] [id number] [place] [address]- 8654 Sep, [facility] [place] [facility] [address] [id number] [place] [address]- 7633 Sep, [facility] [place] [facility] [address] [id number] [place] [address]- 9273 Aug, [facility] [place] [facility] [address] [id number] [place] [address]- 4420 Aug, [facility] [place] [facility] [address] [id number] [place] [address]- 5737 Aug, [facility] [place] [facility] [address] [id number] [place] [address]- 6216 Aug, [facility] [place] [facility] [address] [id number] [place] [address]- 2676 Aug, [facility] [place] [facility] [address] [id number] [place] [address]- 9759 Aug, [facility] [place] [facility] [address] [id number] [place] [address]- 0026 Aug, [facility] [place] [facility] [address] [id number] [place] [address]- 4242 Aug, [facility] [place] [facility] [address] [id number] [place] [address]- 6764 Aug, [facility] [place] [facility] [address] [id number] [place] [address]- 0564 Aug, [facility] [place] [facility] [address] [id number] [place] [address]- 9500 Aug, [facility] [place] [facility] [address] [id number] [place] [address]- 1655 Aug, [facility] [place] [facility] [address] [id number] [place] [address]- 7562 Aug, [facility] [place] [facility] [address] [id number] [place] [address]- 8777 Jul, [facility] [place] [facility] [address] [id number] [place] [address]- 8278 Jul, [facility] [place] [facility] [address] [id number] [place] [address]- 0380 Jul, [facility] [place] [facility] [address] [id number] [place] [address]- 9505 Jul, [facility] [place] [facility] [address] [id number] [place] [address]- 7686 Jul, [facility] [place] [facility] [address] [id number] [place] [address]- 6189 Jul, [facility] [place] [facility] [address] [id number] [place] [address]- 2706 Jul, [facility] [place] [facility] [address] [id number] [place] [address]- 6882 June, [facility] [place] [facility] [address] [id number] [place] [address]- 1212 June, [facility] [place] [facility] [address] [id number] [place] [address]- 6359 June, [facility] [place] [facility] [address] [id number] [place] [address]- 4169 June, [facility] [place] [facility] [address] [id number] [place] [address]- 1201 May, [facility] [place] [facility] [address] [id number] [place] [address]- 5456 May, [facility] [place] [facility] [address] [id number] [place] [address]- 3406 May, [facility] [place] [facility] [address] [id number] [place] [address]- 1087 May, [facility] [place] [facility] [address] [id number] [place] [address]- 1109 May, [facility] [place] [facility] [address] [id number] [place] [address]- 4969 May, [facility] [place] [facility] [address] [id number] [place] [address]- 2636 May, [facility] [place] [facility] [address] [id number] [place] [address]- 1857 May, [facility] [place] [facility] [address] [id number] [place] [address]- 3649 May, [facility] [place] [facility] [address] [id number] [place] [address]- 5547 May, [facility] [place] [facility] [address] [id number] [place] [address]- 3847 Apr, [facility] [place] [facility] [address] [id number] [place] [address]- 0084 Apr, [facility] [place] [facility] [address] [id number] [place] [address]- 8318 Apr, [facility] [place] [facility] [address] [id number] [place] [address]- 7794 Apr, [facility] [place] [facility] [address] [id number] [place] [address]- 0786 Apr, [facility] [place] [facility] [address] [facility] [id number] [place] [address]- 0656 Apr, [facility] [place] [facility] [address] [id number] [place] [address]- 6028 Apr, [facility] [place] [facility] [address] [id number] [place] [address]- 0466 Apr, [facility] [place] [facility] [address] [facility] [id number] [place] [address]- 5926 Apr, [facility] [place] [facility] [address] [facility] [address] [id number] [place] [address]- 2325 Apr, [facility] [place] [facility] [address] [facility] [address] [id number] [place] [address]- 9926 Mar, [facility] [place] [facility] [address] [facility] [address] [id number] [place] [address]- 9947 Mar, [facility] [place] [facility] [address] [facility] [address] [id number] [place] [address]- 4390 Mar, [facility] [place] [facility] [address] [facility] [address] [id number] [place] [address]- 2317 Mar, [facility] [place] [facility] [address] [facility] [address] [id number], [place] [address]- 6139 Mar, [facility] [place] [facility] [address] [id number] [place] [address]- 5536 Mar, [facility] [place] [facility] [address] [facility] [address] [id number] [place] [address]- 2616 Jan, [facility] [place] [facility] [address] [facility] [address] [id number] [place] [address]- 3211 Jan, [facility] [place] [facility] [address] [id number] [place] [address]- 8523 Jan, [facility] [place] [facility] [address] [id number] [place] [address]- 6146 Jan, [facility] [place] [facility] [address] [id number] [place] [address]- 4116 Jan, [facility] [place] [facility] [address] [id number] [place] [address]- 4146 Jan, [facility] [place] [facility] [address] [id number] [place] [address]- 7258 Jan, [facility] [place] [facility] [address] [id number] [place] [address] Jan, [facility] [place] [facility] [address] [id number] [place] [address] Jan, [facility] [place] [facility] [address] [id number] [place] [address] Dec, [facility] [place] [facility] [address] [id number] [place] [address] Dec, [facility] [place] [facility] [address] [id number] [place] [address] Dec, [facility] [place] [facility] [address] [id number] [place] [address] Dec, [facility] [place] [facility] [address] [id number] [place] [address] 2548 Dec, [facility] [place] [facility] [address] [id number] [place] [address] 254 Dec, [facility] [place] [facility] [address] [id number] [place] [address] 2546 15 Dec, 2012 [facility] [place] [facility] [address] [id number] [place] [address] 2543 15 Dec, 2012 [facility] [place] [facility] [address] [id number] [place] [address] Dec, [facility] [place] [facility] [address] [id number] [place] [address] 2541 Dec, [facility] [place] [facility] [address] [id number] [place] [address] 269[address] Dec, [facility] [place] [facility] [address] [id number] [place] [address] Nov, [facility] [place] [facility] [address] [id number] [place] [address] Nov, [facility] [place] [facility] [address] [id number] [place] [address] Nov, [facility] [place] [facility] [address] [id number] [place] [address] 8535 Nov, [facility] [place] [facility] [address] [id number] [place] [address] Nov, [facility] [place] [facility] [address] [id number], [place] [address] Oct, [facility] [place] [facility] [address] [id number] [place] [address] Oct, [facility] [place] [facility] [address] [id number], [place] [address] Sep, [facility] [place] [facility] [address] [id number], [place] [address] Aug, [facility] [place] [facility] [address] [id number], [place] [address] 2548 Aug, [facility] [place] [facility] [address] [id number] [place] [address] Aug, [facility] [place] [facility] [address] [id number], [place] [address] Aug, [facility] [place] [facility] [address] [id number] [place] [address] Jul, [facility] [place] [facility] [address] [id number] [place] [address] 1454 Jul, [facility] [address] [id number] [place] [address] June, [facility] [address] [id number] [place] [address] June, [facility] [address] [id number] [place] [address] 65[address] June, [facility] [address] [id number] [place] [address] 27[address] May, [facility] [address] [id number] [place] [address] May, [facility] [address] [id number] [place] [address] May, [facility] [address] [id number] [place] [address] 379[address] Apr, [facility] [address] [id number] [place] [address] 1375 18 Apr, 2012 [facility] [address] [id number] [place] [address] 8485 15 Apr, 2012 [facility] [address] [facility] [id number] [place] [address]95 14 Apr, 2012 [facility] [place] [facility] [address] [id number] [place] [address] Apr, [facility] [address] [id number] [place] [address] Apr, [facility] [place] [facility] [address] [id number] [place] [address] 1067 Apr, [facility] [place] [facility] [address] [id number] [place] [address] Apr, [facility] [address] [facility] [id number] [place] [address] 7744 Apr, [facility] [address] [id number] [place] [address]- 2592 20 Apr, 2012 [facility] [place] [facility] [address] [id number] [place] [address] 3136 19 Apr, 2012 [facility] [address] [id number] [place] [address]- [address] 07 Apr, 2012 [facility] [place] [facility] [address] [id number] [place] [address]- 8654 07 Apr, 2012 [facility] [address] [id number] [place] [address] Mar, [facility] [address] [id number] [place] [address] 5736 Mar, [facility] [address] [id number] [place] [address] 4005 16 Mar, 2012 [facility] [place] [facility] [address] [id number] [place] [address]- 6003 Mar, [facility] [address] [id number] [place] [address] Mar, [facility] [address] [id number] [place] [address]- 1482 28 Jan, 2012 [facility] [address] [id number] [place] [address] 8939 28 Jan, 2012 [facility] [place] [facility] [address] [id number] [place] [address]- 7210 22 Jan, 2012 [facility] [place] [facility] [address] [id number] [place] [address]- 0465 22 Jan, 2012 [facility] [place] [facility] [address] [id number] [place] [address] 3800 14 Jan, 2012 [facility] [place] [facility] [address] [id number] [place] [address]- 5041 13 Jan, 2012 [facility] [place] [facility] [address] [id number] [place] [address]- 8166 13 Jan, 2012 [facility] [place] [facility] [address] [id number] [place] [address]- 8726 11 Jan, 2012 [facility] [place] [facility] [address] [id number] [place] [address]- 4726 06 Jan, 2012 [facility] [place] [facility] [address] [id number] [place] [address]- 8686 06 Jan, 2012 [facility] [place] [facility] [address] [id number] [place] [address]- 1446 Jan, [facility] [place] [facility] [address] [id number] [place] [address]- 9967 Jan, [facility] [place] [facility] [address] [id number] [place] [address]- 7169 Jan, [facility] [place] [facility] [address] [id number] [place] [address]- 1210 Jan, [facility] [place] [facility] [address] [id number] [place] [address]- 5846 26 Jan, 2012 [facility] [place] [facility] [address] [id number] [place] [address]- 1778 26 Jan, 2012 [facility] [place] [facility] [address] [facility] [id number] [place] [address]- 2401 19 Jan, 2012 [facility] [place] [facility] [address] [id number] [place] [address]- 0466 19 Jan, 2012 [facility] [place] [facility] [address] [id number] [place] [address]- 2546 15 Jan, 2012 [facility] [place] [facility] [address] [id number] [place] [address]- 9356 15 Jan, 2012 [facility] [place] [facility] [address] [id number] [place] [address]- 2216 14 Jan, 2012 [facility] [place] [facility] [address] [id number] [place] [address]- 5438 14 Jan, 2012 [facility] [place] [facility] [address] [id number] [place] [address]- 8859 14 Jan, 2012 [facility] [place] [facility] [address] [id number] [place] [address]- 6978 14 Jan, 2012 [facility] [place] [facility] [address] [id number] [place] [address]- 4507 07 Jan, 2012 [facility] [place] [facility] [address] [id number] [place] [address]- 0145 07 Jan, 2012 [facility] [place] [facility] [address] [id number] [place] [address] 16 Dec, 2011 [facility] [place] [facility] [address] [id number] [place] [address] 16 Dec, 2011 [facility] [place] [facility] [address] [id number] [place] [address] 13 Nov, 2011 [facility] [place] [facility] [address] [id number] [place] [address] 13 Nov, 2011 [facility] [place] [facility] [address] [id number] [place] [address] 13 Nov, 2011 [facility] [place] [facility] [address] [id number] [place] [address] 12 Nov, 2011 [facility] [place] [facility] [address] [id number] [place] [address] 30 Oct, 2011 [facility] [place] [facility] [address] [id number] [place] [address] Sep, [facility] [place] [facility] [address] [id number] [place] [address] Aug, [facility] [place] [facility] [address] [id number] [place] [address] 13 Aug, 2011 [facility] [place] [facility] [address] [id number] [place] [address] Aug, [facility] [place] [facility] [address] [id number] [place] [address] Aug, [facility] [address] [id number] [place] [address] June, [facility] [address] [id number] [place] [address] June, [facility] [address] [id number] [place] [address] May, [facility] [place] [facility] [address] [id number] [place] [address] Apr, [facility] [address] [id number] [place] [address] Apr, [facility] [place] [facility] [address] [id number] [place] [address] Apr, [facility] [address] [facility] [id number] [place] [address] Apr, [facility] [place] [facility] [address] [id number] [place] [address] 89[address] Apr, [facility] [address] [id number] [place] [address] Apr, [facility] [address] [id number] [place] [address] Mar, [facility] [address] [id number] [place] [address] Mar, [facility] [place] [facility] [address] [id number] [place] [address] Mar, [facility] [place] [facility] [address] [id number] [place] [address] Jan, [facility] [place] [facility] [address] [id number] [place] [address] Jan, [facility] [place] [facility] [address] [id number] [place] [address] Jan, [facility] [place] [facility] [address] [id number] [place] [address] Jan, [facility] [place] [facility] [address] [id number] [place] [address] Jan, [facility] [place] [facility] [address] [id number] [place] [address] 34[address] Jan, [facility] [place] [facility] [address] [id number] [place] [address] Jan, [facility] [place] [facility] [address] [id number] [place] [address] 4298 Dec, [facility] [place] [facility] [address] [id number] [place] [address]85 Dec, [facility] [place] [facility] [address] [id number] [place] [address] 67[address] Nov, [facility] [place] [facility] [address] [id number] [place] [address] Nov, [facility] [place] [facility] [address] [id number] [place] [address] Nov, [facility] [place] [facility] [address] [id number] [place] [address] Nov, [facility] [place] [facility] [address] [id number] [place] [address] Oct, [facility] [place] [facility] [address] [id number] [place] [address] Sep, [facility] [place] [facility] [address] [id number] [place] [address] Mar, [facility] [place] [facility] [address] [id number] [place] [address] Jan, [facility] [place] [facility] [address] [id number] [place] [address] 2546 Dec, [facility] [place] [facility] [address] [id number] [place] [address] 06 Dec, 2009 [facility] [place] [facility] [address] [id number] [place] [address] 98[address] 04 Dec, 2009 [facility] [place] [facility] [address] [id number] [place] [address] 295[address] Dec, [facility] [place] [facility] [address] [id number] [place] [address]44 26 Nov, 2009 [facility] [place] [facility] [address] [id number] [place] [address] 15 Nov, 2009 [facility] [place] [facility] [address] [id number] [place] [address] 14 Nov, 2009 [facility] [place] [facility] [address] [id number] [place] [address]659 14 Nov, 2009 [facility] [place] [facility] [address] [id number] [place] [address]- 4966 13 Oct, 2009 [facility] [place] [facility] [address] [id number], [place] [address] 17 Jul, 2009 [facility] [place] [facility] [address] [id number] [place] [address] 64[address] June, [facility] [place] [facility] [address] [id number], [place] [address] June, [facility] [place] [facility] [address] [id number], [place] [address] Apr, [facility] [place] [facility] [address] [id number], [place] [address] Mar, [facility] [place] [facility] [address] [id number] [place] [address] Jan, [facility] [place] [facility] [address] [id number], [place] [address] Jan, [facility] [place] [facility] [address] [id number] [place] [address] 82[address] Dec, [facility] [place] [facility] [address] [facility] [id number] [place] [address] Dec, [facility] [address] [facility] [address] [id number], [place] [address] Dec, [facility] [address] [id number], [place] [address] Dec, [facility] [address] [facility] [address] [id number], [place] [address] Nov, [facility] [address] [id number], [place] [address] Jul, [facility] [address] [facility] [address] [id number], [place] [address] June, IMMUNIZATIONS No Known Immunizations SOCIAL HISTORY [...]
--- OUTSIDE RECORDS SUMMARY | 2018-02-26 19:38 | XMS REPORT ---
Author Author CHRIS STEVENSON [facility] Address [address] [place] [address] Care Team Providers Care Radio Host Name Role Phone GRAHAM, CHRIS Unavailable PROBLEMS Type Condition ICD9-CM Code ZIB60-HR Code Onset Dates Condition Status SNOMED Code Problem Pulmonary asbestosis J61 Active 13528484 Problem Left ventricular diastolic dysfunction I51.9 Active 438060803 Problem Renal cyst, left N28.1 Active 83347150 Problem History of weight loss surgery Z98.84 Active 679051557 Problem Nocturnal hypoxia G47.34 Active 598509893 Problem Obstructive sleep apnea syndrome G47.33 Active 98033324 Problem Nephrolithiasis N20.0 Active 43726659 Problem Allergic rhinitis, unspecified allergic rhinitis type J30.9 Active 15298209 Problem 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 Active 95299352 Problem History of diverticulitis Z87.19 Active 947059787859558 Problem Hammertoe of left foot M20.42 Active 270284001 Problem Erectile dysfunction due to diseases classified elsewhere N52.1 Active 526311675 Problem Anxiety F41.9 Active 14323798 Problem Psoriasis L40.9 Active 9457426 Problem Essential hypertension I10 Active 13047822 Problem Moderate episode of recurrent major depressive disorder F33.1 Active 523026113 Problem Chronic prescription opiate use Z79.899 Active 579543890 Problem Acute right-sided low back pain with right-sided sciatica M54.41 Active 731772831 Problem Benign prostatic hyperplasia, presence of lower urinary tract symptoms unspecified, unspecified morphology N40.0 Active 280642702 Problem Low back pain M54.5 Active 847439313 Problem Cervicalgia M54.2 Active 6340057937505 Problem Urge incontinence N39.41 Active 667236290 Problem Age-related osteoporosis without current pathological fracture M81.0 Active 02560351 Problem Esophageal stricture K22.2 Active 25832257 Problem Chronic gout, unspecified cause, unspecified site M1A.9XX0 Active 55230835 Problem Primary insomnia F51.01 Active 232257655 Problem Hyperlipidemia, unspecified E78.5 Active 65002436 ALLERGIES No Information ENCOUNTERS Encounter Location Date Diagnosis [place] [id number] [place] [address] 98651- 5514 Mar, [facility] [id number] [place] [address] 57124- 5485 Jan, [place] [address] 40247- 5344 Jan, [facility] [address] 08503- 0108 Dec, Anxiety F41.9 [place] [id number] [place] [address] 87005- 1739 Dec, [place] [address] 92429- 7410 Dec, Anxiety F41.9 [place] [address] 47759- 4835 Dec, [place] [address] 96091- 6557 Dec, Encounter for immunization Z23 [facility] [id number] [place] [address] 94308 -6211 Dec, [facility] [id number] [place] [address] 08246- 9668 Dec, Hammertoe of left foot M20.42 ; Edema of left foot R60.0 and Onychomycosis B35.1 [facility] [id number] [place] [address] 14572 -3083 Nov, BMI 50.0-59.9, adult Z68.43 [facility] [id number] [place] [address] 62554- 6944 Nov, [facility] [address] [place] [address]- 6317 Nov, [facility] [id number] [place] [address] 18123- 8151 Nov, Anxiety F41.9 [facility] [id number] [place] [address] 11316- 4099 Oct, [facility] [id number] [place] [address] 48385- 6983 Oct, [facility] [id number] [place] [address] 94869- 7188 Oct, BMI 45.0-49.9, adult Z68.42 ; Essential hypertension I10 ; Hyperlipidemia, unspecified E78.5 ; Anxiety F41.9 ; Obstructive sleep apnea syndrome G47.33 ; Moderate episode of recurrent major depressive disorder F33.1 ; Left ventricular diastolic dysfunction I51.9 ; Acute pain of right shoulder M25.511 ; Pain of left foot M79.672 and Pain in right foot M79.671 [facility] [id number] [place] [address] 03266- 6242 Oct, Anxiety F41.9 [facility] [id number] [place] [address] 93067 -4230 Sep, Left foot pain M79.672 [facility] [address] [place] [address]- 6944 Sep, [facility] [id number] [place] [address] 41530- 4823 Sep, Anxiety F41.9 [facility] [id number] [place] [address] 56302- 2405 Sep, [facility] [id number] [place] [address] 59024- 2190 Aug, [facility] [address], [place] [address]- 7657 Aug, [facility] [id number] [place] [address]- 5958 Aug, Anxiety F41.9 [facility] [id number] [place] [address] 03160- 7157 Aug, [facility] [id number] [place] [address] 21731- 4182 Jul, [facility] [id number] [place] [address] 57917- 7995 Jul, Anxiety F41.9 [facility] [id number] [place] [address] 68402- 9658 June, Anxiety F41.9 [facility] [id number] [place] [address] 74537- 5712 June, [facility] [id number] [place] [address] 25861- 6696 June, Low back pain M54.5 ; Chronic prescription opiate use Z79.899 ; Candidal intertrigo B37.2 ; Urge incontinence N39.41 ; Essential hypertension I10 ; Moderate episode of recurrent major depressive disorder F33.1 ; Age-related osteoporosis without current pathological fracture M81.0 and BMI 45.0-49.9, adult Z68.42 [facility] [id number] [place] [address] 96958- 6933 June, [facility] [id number] [place] [address] 13079- 0686 May, Anxiety F41.9 [facility] [id number] [place] [address] 94636- 5978 May, [facility] [id number] [place] [address] 85881- 0592 May, [facility] [id number] [place] [address] 10549- 4261 Apr, Anxiety F41.9 [facility] [id number] [place] [address] 10762- 0670 Apr, [facility] [address], [place] [address]- 7618 Apr, Low back pain M54.5 [facility] [id number] [place] [address] 70486- 0320 Apr, [facility] [id number] [place] [address] 16989- 2168 Apr, [facility] [id number] [place] [address] 08926- 8415 Apr, Anxiety F41.9 [facility] [address] 14366- 9386 Apr, Right groin pain R10.31 [facility] [id number] [place] [address] 59081- 0847 Mar, [facility] [id number] [place] [address] 06248- 5494 Mar, [facility] [id number] [place] [address] 02993- 4271 Mar, Anxiety F41.9 [facility] [id number] [place] [address] 62789- 0713 Mar, Low back pain M54.5 [facility] [id number] [place] [address] 70399- 5792 Mar, Right groin pain R10.31 ; Low back pain M54.5 and BMI 45.0- 49.9, adult Z68.42 [facility] [id number] [place] [address] 66321- 6164 Mar, [facility] [id number] [place] [address] 22025- 6365 Mar, [facility] [address], [place] [address]- 4448 Mar, [facility] [id number] [place] [address] 85157 -7991 Mar, [facility] [id number] [place] [address] 85907 -9581 Mar, Cough R05 ; Pneumonia of right lower lobe due to infectious organism J18.1 and Abnormal chest x-ray R93.8 [place] [id number] [place] [address] 00606- 4044 Mar, [facility] [id number] [place] [address] 01388- 4691 Mar, [place] [address] 29736- 2505 Jan, Anxiety F41.9 [place] [id number] [place] [address] 15384- 1291 Jan, [place] [address] 61941- 7551 Jan, Moderate episode of recurrent major depressive disorder F33.1 [place] [id number] [place] [address] 37673- 0016 Jan, Subacromial bursitis of right shoulder joint M75.51 ; Shortness of breath on exertion R06.02 and BMI 45.0-49.9, adult Z68.42 [place] [id number] [place] [address] 97085- 9422 Dec, Anxiety F41.9 [place] [id number] [place] [address] 69700- 6206 Dec, [place] [address] 42542- 3392 Dec, Low back pain M54.5 [place] [id number] [place] [address] 14102- 1152 Oct, Low back pain M54.5 [place] [address] 06923- 2674 Sep, [facility] [address], [place] [address]- 9943 Sep, Erectile dysfunction due to diseases classified elsewhere N52.1 [facility] [id number] [place] [address] 35697- 3781 Sep, Erectile dysfunction due to diseases classified elsewhere N52.1 [facility] [id number] [place] [address] 56793- 2775 Sep, [facility] [id number] [place] [address] 90152- 3024 Sep, Erectile dysfunction due to diseases classified elsewhere N52.1 [facility] [id number] [place] [address] 91136- 9008 Sep, Low back pain M54.5 and Anxiety F41.9 [facility] [id number] [place] [address] 15070 -9956 Aug, Acute allergic rhinitis J30.9 [facility] [id number] [place] [address] 75530- 0394 Aug, [facility] [id number] [place] [address] 84555- 9184 Aug, Anxiety F41.9 [facility] [id number] [place] [address] 04026- 9987 Jul, Low back pain M54.5 ; Chronic prescription opiate use Z79.899 and Essential hypertension I10 [facility] [id number] [place] [address] 27137- 2791 Jul, Anxiety F41.9 and Low back pain M54.5 [facility] [id number] [place] [address] 58210- 7550 June, [facility] [id number] [place] [address] 12398- 4878 June, Anxiety F41.9 [facility] [address], [place] [address]- 0085 May, Low back pain M54.5 [facility] [id number] [place] [address] 58768- 0286 May, [facility] [id number] [place] [address] 03809- 8806 May, Anxiety F41.9 [facility] [id number] [place] [address] 89833- 6864 Apr, [facility] [id number] [place] [address] 32480- 5138 Apr, Low back pain M54.5 [facility] [id number] [place] [address] 40682- 3615 Apr, Moderate episode of recurrent major depressive disorder F33.1 [facility] [id number] [place] [address] 80354- 7243 Apr, Anxiety F41.9 [facility] [id number] [place] [address] 48003- 3848 Apr, Low back pain M54.5 [facility] [id number] [place] [address] 32724 2549 15 Apr, 2016 Elevated alkaline phosphatase level R74.8 [facility] [id number] [place] [address] 04785- 7976 10 Apr, 2016 Alkaline phosphatase elevation R74.8 [facility] [id number] [place] [address] 21978- 2541 Apr, Anxiety F41.9 [facility] [id number] [place] [address] 08321- 2546 Apr, Low back pain M54.5 [facility] [id number] [place] [address] 16462- 8690 Apr, 2017 History of weight loss surgery Z98.84 ; Encounter for hepatitis C screening test for low risk patient Z11.59 ; History of herpes genitalis Z86.19 ; Essential hypertension I10 ; Hyperlipidemia, unspecified E78.5 ; Exposure to STD Z20.2 and Benign prostatic hyperplasia, presence of lower urinary tract symptoms unspecified, unspecified morphology N40.0 [facility] [id number] [place] [address] 62050- 2854 02 Apr, 2016 [place] [address] 82048- 0327 Mar, [place] [id number] [place] [address] 55076- 4859 Mar, [place] [address] 58984- 3748 Mar, [place] [id number] [place] [address] 96817- 6360 Mar, Acute right-sided low back pain with right-sided sciatica M54.41 [place] [id number] [place] [address] 09620- 5900 Mar, Low back pain M54.5 [facility] [id number] [place] [address] 35985 -3954 Mar, Muscle strain of chest wall, initial encounter S29.011A ; Muscle strain of right thigh, initial encounter S76.911A and Acute non- recurrent maxillary sinusitis J01.00 [place] [id number] [place] [address] 86330- 6559 Mar, Benign prostatic hyperplasia, presence of lower urinary tract symptoms unspecified, unspecified morphology N40.0 [place] [id number] [place] [address] 32292- 8798 Jan, Low back pain M54.5 [facility] [id number] [place] [address] 15194- 2965 Jan, Low back pain M54.5 ; Essential hypertension I10 ; Hyperlipidemia, unspecified E78.5 ; Anxiety F41.9 ; Moderate episode of recurrent major depressive disorder F33.1 ; Primary insomnia F51.01 ; Exposure to STD Z20.2 ; Encounter for hepatitis C screening test for low risk patient Z11.59 and History of herpes genitalis Z86.19 [facility] [id number] [place] [address] 95705- 7310 17 Jan, 2016 [facility] [id number] [place] [address] 51462- 5294 Nov, [facility] [id number] [place] [address] 67894- 0950 14 Dec, 2015 Anxiety F41.9 ; Cervicalgia M54.2 ; Moderate episode of recurrent major depressive disorder F33.1 and Encounter for immunization Z23 [facility] [id number] [place] [address] 27932- 8117 Oct, [facility] [address] 08877- 2687 Oct, [facility] [id number] [place] [address] 02879- 4365 16 Nov, 2015 [facility] [id number] [place] [address] 21994- 0200 09 Nov, 2015 [facility] [id number] [place] [address] 99576- 8212 Sep, [facility] [id number] [place] [address] 55279- 4189 Aug, Low back pain M54.5 ; Anxiety F41.9 ; Primary insomnia F51.01 and Chronic prescription opiate use Z79.899 [facility] [id number] [place] [address] 02381- 4388 Jul, [facility] [id number] [place] [address] 32117- 8393 Jul, [facility] [id number] [place] [address] 34704- 3403 Jul, [facility] [address] [facility] [id number] [address]- 9823 Jul, [facility] [address] [facility] [id number], [place] [address]- 8894 Jul, [facility] [address] [facility] [id number], [place] [address]- 0494 June, [facility] [id number] [place] [address] 85754- 9958 June, [facility] [address] [facility] [id number], [place] [address]- 8149 June, [facility] [address] [place] [address], [place] [address]- 9896 June, [facility] [address], [place] [address]- 8247 May, Preoperative cardiovascular examination Z01.810 [facility] [address], [place] [address]- 3414 May, [facility] [address], [place] [address]- 6686 Apr, [facility] [address], [place] [address]- 7533 Apr, Osteoarthritis of right knee M17.9 [facility] [address], [place] [address]- 3063 Apr, [facility] [address], [place] [address]- 0884 16 May, 2015 [facility] [address], [place] [address]- 1808 Apr, [facility] [address], [place] [address]- 6122 Apr, [facility] [address], [place] [address]- 7859 Apr, History of excessive cerumen Z78.9 ; Obstructive sleep apnea syndrome G47.33 ; History of diverticulitis Z87.19 and Nephrolithiasis N20.0 [place] [id number] [place] [address] 90343- 5241 29 Apr, 2015 [facility] [id number] [place] [address] 74207 -4990 23 Apr, 2015 Abdominal pain R10.9 [place] [address] 14347- 6312 10 Apr, 2015 [place] [id number] [place] [address] 19440- 4676 04 Apr, 2015 Osteoarthritis of right knee M17.9 [place] [address] 56728- 3839 Mar, [place] [address] 21434- 3859 Mar, [place] [id number] [place] [address] 44081- 7359 Mar, [place] [id number] [place] [address] 42992- 8546 Mar, [facility] [id number] [place] [address] 88481 -9972 Mar, Pyelonephritis N12 ; Left-sided thoracic back pain M54.6 ; Hematuria, unspecified R31.9 and Kidney stone N20.0 [place] [id number] [place] [address] 43817- 6475 12 Mar, 2015 History of weight loss surgery Z98.84 [place] [id number] [place] [address] 12313- 3255 07 Mar, 2015 History of weight loss surgery Z98.84 and Hyperlipidemia, unspecified E78.5 [place] [id number] [place] [address] 11216- 6927 Mar, Low back pain M54.5 ; Chronic prescription opiate use Z79.899 ; Hyperlipidemia, unspecified E78.5 ; Spasm of back muscles M62.830 and History of weight loss surgery Z98.84 [facility] [id number] [place] [address] 63504- 5873 Jan, [facility] [id number] [place] [address] 50941- 0331 Jan, [facility] [address] 90244- 7267 Jan, [facility] [address] 06935- 6568 Dec, [facility] [address] 15418- 0315 Dec, [facility] [id number] [place] [address] 02520- 8773 Dec, [facility] [id number] [place] [address] 39806- 2873 Nov, [facility] [id number] [place] [address] 61231- 5500 Nov, Obstructive sleep apnea syndrome G47.33 and Pharyngoesophageal dysphagia R13.14 [facility] [id number] [place] [address] 11986- 3408 Nov, [facility] [id number] [place] [address] 42667- 3439 Nov, [facility] [id number] [place] [address] 47163- 8426 Nov, [facility] [address] [id number] Oct, Dental examination V72.2 [facility] [id number] [place] [address] 95174- 9677 Oct, [facility] [address] 94925- 0350 Oct, [facility] [address], [place] [address]- 2347 Oct, [facility] [id number] [place] [address] 949141- 4062 Oct, [facility] [id number] [place] [address] 05697- 6791 Oct, BPH (benign prostatic hyperplasia) 600.00 and Urinary frequency 788.41 [facility] [id number] [place] [address] 86837- 8295 Oct, [facility] [id number] [place] [address] 31840- 3981 Oct, [facility] [id number] [place] [address] 05170- 9804 Oct, [facility] [id number] [place] [address] 42628- 5961 Sep, Cerumen impaction 380.4 ; Cerumen debris on tympanic membrane 380.4 ; Psoriasis 696.1 and MICKY (secretory otitis media) 381.4 [facility] [id number] [place] [address] [id number] Sep, Dental examination V72.2 [facility] [id number] [place] [address] 28437- 7650 Sep, Fatigue 780.79 ; Irritable bowel syndrome 564.1 ; Overweight 278.02 ; Poor sleep V69.4 ; Shaking spells 781.0 and Broken tooth 873.63 [facility] [id number] [place] [address] 85719- 5469 Sep, [facility] [id number] [place] [address] 539699- 5440 Sep, [facility] [id number] [place] [address] 92003- 7304 Aug, [facility] [address] [place] [address]- 4981 Jul, [facility] [address] [place] [address] Jul, [facility] [address] [facility] [id number] [place] [address] Jul, [facility] [address] [place] [address] Jul, [facility] [address] [place] [address] June, Arthritis of knee, right 716.96 [facility] [address] [place] [address] June, [facility] [address] [place] [address] June, Elevated blood pressure reading without diagnosis of hypertension 796.2 [facility] [address] [place] [address] June, [facility] [address] [place] [address] June, [facility] [address] [place] [address] June, [facility] [id number] [address] June, [facility] [address] [id number] [address] May, [facility] [id number] [address] May, [facility] [address] [id number] [place] [address] Apr, [facility] [address] [id number] [place] [address] 79[address] Apr, [facility] [place] [facility] [address] [id number] [place] [address] 0916 Apr, 2014 [facility] [place] [facility] [address] [id number] [place] [address]- 3557 Apr, [facility] [place] [facility] [address] [id number] [place] [address]- 5725 Apr, [facility] [place] [facility] [address] [id number] [place] [address]- 3983 Apr, 2014 [facility] [place] [facility] [address] [id number] [place] [address]- 7302 Apr, [facility] [place] [facility] [address] [id number] [place] [address]- 5772 Apr, 2014 [facility] [place] [facility] [address] [facility] [id number] [place] [address]- 4874 Apr, [facility] [place] [facility] [address] [facility] [id number] [place] [address]- 3135 Apr, 2014 [facility] [place] [facility] [address] [id number] [place] [address]- 5818 Apr, 2014 [facility] [place] [facility] [address] [facility] [id number] [place] [address]- 6537 Apr, 2014 [facility] [place] [facility] [address] [facility] [id number] [place] [address]- 0299 Apr, 2014 [facility] [place] [facility] [address] [facility] [id number], [place] [address]- 9[address] Apr, 2014 [facility] [place] [facility] [address] [facility] [id number] [place] [address]- 4080 Apr, 2014 [facility] [place] [facility] [address] [id number] [place] [address]- 5836 Apr, 2014 [facility] [place] [facility] [address] [facility] [id number] [place] [address]- 7780 20 Apr, 2014 [facility] [place] [facility] [address] [facility] [id number] [place] [address]- 4922 20 Apr, 2014 [facility] [place] [facility] [address] [id number] [place] [address]- 3960 18 Apr, 2014 [facility] [place] [facility] [address] [id number] [place] [address]- 1771 18 Apr, 2014 [facility] [place] [facility] [address] [facility] [id number] [place] [address]- 5124 13 Apr, 2014 [facility] [place] [facility] [address] [facility] [id number] [place] [address]- 3577 13 Apr, 2014 [facility] [place] [facility] [address] [facility] [id number] [place] [address]- 1676 Apr, 2014 [facility] [place] [facility] [address] [facility] [id number] [place] [address]- 0864 13 Apr, 2014 [facility] [place] [facility] [address] [id number] [place] [address]- 7654 12 Apr, 2014 [facility] [place] [facility] [address] [facility] [id number] [place] [address]- 6423 12 Apr, 2014 [facility] [place] [facility] [address] [id number] [place] [address]- 1720 Apr, 2014 [facility] [place] [facility] [address] [id number] [address] 9[address] 06 Apr, 2014 [facility] [place] [facility] [address] [facility] [id number] [place] [address]- 2541 05 Apr, 2014 [facility] [place] [facility] [address] [facility] [id number] [place] [address]- 2545 05 Apr, 2014 [facility] [place] [facility] [address] [facility] [id number] [place] [address]- 6180 Apr, 2014 [facility] [place] [facility] [address] [facility] [id number], [place] [address]- 2548 05 Apr, 2014 [facility] [place] [facility] [address] [id number], [place] [address] 2540 Apr, [facility] [place] [facility] [address] [id number] [place] [address]- 0219 Mar, [facility] [place] [facility] [address] [id number] [place] [address]- 1466 Mar, [facility] [place] [facility] [address] [facility] [id number] [place] [address]- 5829 Mar, [facility] [place] [facility] [address] [id number] [place] [address]- 8819 Mar, [facility] [place] [facility] [address] [id number] [place] [address]- 8352 Mar, [facility] [place] [facility] [address] [id number] [place] [address]- 8248 Mar, [facility] [place] [facility] [address] [id number] [place] [address]- 2692 Mar, [facility] [place] [facility] [address] [id number] [place] [address]- 0867 Mar, [facility] [place] [facility] [address] [id number] [place] [address]- 7385 Mar, [facility] [place] [facility] [address] [id number] [place] [address]- 7820 Mar, [facility] [place] [facility] [address] [id number], [place] [address]- 7876 Jan, [facility] [place] [facility] [address] [id number], [place] [address]- 1408 Jan, [facility] [place] [facility] [address] [id number] [place] [address]- 4102 Jan, [facility] [place] [facility] [address] [id number] [place] [address]- 3578 Jan, [facility] [place] [facility] [address] [id number] [place] [address]- 7817 Jan, [facility] [place] [facility] [address] [id number] [place] [address]- 1766 Jan, [facility] [place] [facility] [address] [id number] [place] [address]- 0646 Jan, [facility] [place] [facility] [address] [id number] [place] [address]- 6515 Jan, [facility] [place] [facility] [address] [id number] [place] [address]- 4154 Jan, [facility] [place] [facility] [address] [id number] [place] [address]- 6047 Jan, [facility] [place] [facility] [address] [id number] [place] [address]- 4573 Jan, [facility] [place] [facility] [address] [id number] [place] [address]- 2073 Jan, [facility] [place] [facility] [address] [id number] [place] [address]- 9006 Dec, [facility] [place] [facility] [address] [id number] [place] [address]- 1338 Dec, [facility] [place] [facility] [address] [id number] [place] [address]- 4796 Dec, [facility] [place] [facility] [address] [id number] [place] [address]- 9392 Dec, [facility] [place] [facility] [address] [id number] [place] [address]- 8285 Dec, [facility] [place] [facility] [address] [id number] [place] [address]- 0528 Dec, [facility] [place] [facility] [address] [id number] [place] [address]- 2210 Dec, [facility] [place] [facility] [address] [id number] [place] [address]- 0446 Dec, [facility] [place] [facility] [address] [id number] [place] [address]- 6870 Dec, [facility] [place] [facility] [address] [id number] [place] [address]- 2965 Dec, 2013 [facility] [place] [facility] [address] [id number] [place] [address]- 3400 Nov, [facility] [place] [facility] [address] [id number] [place] [address]- 4579 Nov, [facility] [place] [facility] [address] [id number] [place] [address]- 4411 Nov, [facility] [place] [facility] [address] [id number] [place] [address]- 3291 Nov, [facility] [place] [facility] [address] [id number] [place] [address]- 8540 Nov, [facility] [place] [facility] [address] [id number] [place] [address]- 4803 Nov, [facility] [place] [facility] [address] [id number] [place] [address]- 2042 Nov, [facility] [place] [facility] [address] [id number] [place] [address]- 1958 Nov, [facility] [place] [facility] [address] [id number] [place] [address]- 1475 Nov, [facility] [place] [facility] [address] [id number] [place] [address]- 4548 24 Nov, 2013 [facility] [place] [facility] [address] [id number], [place] [address]- 2292 Nov, [facility] [place] [facility] [address] [id number] [place] [address]- 9992 Nov, [facility] [place] [facility] [address] [id number], [place] [address]- 5067 Nov, [facility] [place] [facility] [address] [id number], [place] [address]- 2579 14 Nov, 2013 [facility] [place] [facility] [address] [id number], [place] [address]- 7146 Nov, [facility] [place] [facility] [address] [id number] [place] [address]- 1207 Nov, [facility] [place] [facility] [address] [id number] [place] [address]- 7101 Nov, [facility] [place] [facility] [address] [id number] [place] [address]- 9030 Nov, [facility] [place] [facility] [address] [id number] [place] [address]- 2117 Nov, [facility] [place] [facility] [address] [id number] [place] [address]- 2761 Nov, [facility] [place] [facility] [address] [id number] [place] [address]- 1633 Oct, [facility] [place] [facility] [address] [id number] [place] [address]- 6170 Oct, [facility] [place] [facility] [address] [id number] [place] [address]- 3656 Oct, [facility] [place] [facility] [address] [id number] [place] [address]- 9203 Oct, [facility] [place] [facility] [address] [id number] [place] [address]- 5842 12 Oct, 2013 [facility] [place] [facility] [address] [id number], [place] [address]- 7979 12 Oct, 2013 [facility] [place] [facility] [address] [id number], [place] [address]- 254 10 Oct, 2013 [facility] [place] [facility] [address] [id number] [place] [address]- 2542 10 Oct, 2013 [facility] [place] [facility] [address] [id number] [place] [address]- 7171 08 Oct, 2013 [facility] [place] [facility] [address] [id number] [place] [address]- 6132 08 Oct, 2013 [facility] [place] [facility] [address] [id number] [place] [address]- 7637 Sep, [facility] [place] [facility] [address] [id number] [place] [address]- 5646 Sep, [facility] [place] [facility] [address] [id number] [place] [address]- 2301 Sep, [facility] [place] [facility] [address] [id number] [place] [address]- 4286 Sep, [facility] [place] [facility] [address] [id number] [place] [address]- 7563 Sep, [facility] [place] [facility] [address] [id number] [place] [address]- 6598 Sep, [facility] [place] [facility] [address] [id number] [place] [address]- 8660 Sep, [facility] [place] [facility] [address] [id number] [place] [address]- 3361 Sep, [facility] [place] [facility] [address] [id number] [place] [address]- 8509 Sep, [facility] [place] [facility] [address] [id number] [place] [address]- 9815 Sep, [facility] [place] [facility] [address] [id number] [place] [address]- 2621 Sep, [facility] [place] [facility] [address] [id number] [place] [address]- 7177 Sep, [facility] [place] [facility] [address] [id number] [place] [address]- 2233 Sep, [facility] [place] [facility] [address] [id number] [place] [address]- 2222 Sep, [facility] [place] [facility] [address] [id number] [place] [address]- 5222 Sep, [facility] [place] [facility] [address] [id number] [place] [address]- 7844 Sep, [facility] [place] [facility] [address] [id number] [place] [address]- 5114 Sep, [facility] [place] [facility] [address] [id number] [place] [address]- 7717 Sep, [facility] [place] [facility] [address] [id number] [place] [address]- 0282 Sep, [facility] [place] [facility] [address] [id number] [place] [address]- 8973 Sep, [facility] [place] [facility] [address] [id number] [place] [address]- 5175 Sep, [facility] [place] [facility] [address] [id number] [place] [address]- 4346 Sep, [facility] [place] [facility] [address] [id number] [place] [address]- 9327 Sep, [facility] [place] [facility] [address] [id number] [place] [address]- 7653 Sep, [facility] [place] [facility] [address] [id number] [place] [address]- 5773 Sep, [facility] [place] [facility] [address] [id number] [place] [address]- 5129 Aug, [facility] [place] [facility] [address] [id number] [place] [address]- 3044 Aug, [facility] [place] [facility] [address] [id number] [place] [address]- 8214 Aug, [facility] [place] [facility] [address] [id number] [place] [address]- 8385 Aug, [facility] [place] [facility] [address] [id number] [place] [address]- 5884 Aug, [facility] [place] [facility] [address] [id number] [place] [address]- 1250 Aug, [facility] [place] [facility] [address] [id number] [place] [address]- 4206 Aug, [facility] [place] [facility] [address] [id number] [place] [address]- 4176 Aug, [facility] [place] [facility] [address] [id number] [place] [address]- 4817 Aug, [facility] [place] [facility] [address] [id number] [place] [address]- 3151 Aug, [facility] [place] [facility] [address] [id number] [place] [address]- 8282 Aug, [facility] [place] [facility] [address] [id number] [place] [address]- 3420 Aug, [facility] [place] [facility] [address] [id number] [place] [address]- 4181 Aug, [facility] [place] [facility] [address] [id number] [place] [address]- 8291 Jul, [facility] [place] [facility] [address] [id number] [place] [address]- 0327 Jul, [facility] [place] [facility] [address] [id number] [place] [address]- 0172 Jul, [facility] [place] [facility] [address] [id number] [place] [address]- 9459 Jul, [facility] [place] [facility] [address] [id number] [place] [address]- 4576 Jul, [facility] [place] [facility] [address] [id number] [place] [address]- 2002 Jul, [facility] [place] [facility] [address] [id number] [place] [address]- 0740 Jul, [facility] [place] [facility] [address] [id number] [place] [address]- 8782 June, [facility] [place] [facility] [address] [id number] [place] [address]- 2199 June, [facility] [place] [facility] [address] [id number] [place] [address]- 0363 June, [facility] [place] [facility] [address] [id number] [place] [address]- 0776 June, [facility] [place] [facility] [address] [id number] [place] [address]- 4815 May, [facility] [place] [facility] [address] [id number] [place] [address]- 6183 May, [facility] [place] [facility] [address] [id number] [place] [address]- 2715 May, [facility] [place] [facility] [address] [id number] [place] [address]- 1645 May, [facility] [place] [facility] [address] [id number] [place] [address]- 8364 May, [facility] [place] [facility] [address] [id number] [place] [address]- 4531 May, [facility] [place] [facility] [address] [id number] [place] [address]- 6854 May, [facility] [place] [facility] [address] [id number] [place] [address]- 0919 May, [facility] [place] [facility] [address] [id number] [place] [address]- 1492 May, [facility] [place] [facility] [address] [id number] [place] [address]- 7981 May, [facility] [place] [facility] [address] [id number] [place] [address]- 4858 Apr, [facility] [place] [facility] [address] [id number] [place] [address]- 5275 Apr, [facility] [place] [facility] [address] [id number] [place] [address]- 6324 Apr, [facility] [place] [facility] [address] [id number] [place] [address]- 2406 Apr, [facility] [place] [facility] [address] [id number] [place] [address]- 8446 Apr, [facility] [place] [facility] [address] [id number] [place] [address]- 7116 Apr, [facility] [place] [facility] [address] [id number] [place] [address]- 2756 Apr, [facility] [place] [facility] [address] [id number] [place] [address]- 1591 Apr, [facility] [place] [facility] [address] [id number] [place] [address]- 6188 Apr, [facility] [place] [facility] [address] [id number] [place] [address]- 2856 Apr, [facility] [place] [facility] [address] [facility] [id number] [place] [address]- 3837 Mar, [facility] [place] [facility] [address] [id number] [place] [address]- 9030 Mar, [facility] [place] [facility] [address] [facility] [id number] [place] [address]- 4692 Mar, [facility] [place] [facility] [address] [facility] [id number] [place] [address]- 4734 Mar, [facility] [place] [facility] [address] [facility] [id number] [place] [address]- 8274 Mar, [facility] [place] [facility] [address] [id number] [place] [address]- 9414 Mar, [facility] [place] [facility] [address] [id number] [place] [address]- 5547 Jan, [facility] [place] [facility] [address] [facility] [id number] [place] [address]- 4114 Jan, [facility] [place] [facility] [address] [facility] [id number] [place] [address]- 1036 Jan, [facility] [place] [facility] [address] [id number] [place] [address]- 7660 Jan, [facility] [place] [facility] [address] [id number] [place] [address]- 4416 Jan, [facility] [place] [facility] [address] [id number] [place] [address] 2546 Jan, [facility] [place] [facility] [address] [id number] [place] [address]- 3786 Jan, [facility] [place] [facility] [address] [id number] [place] [address]- 4756 Jan, [facility] [place] [facility] [address] [id number] [place] [address]- 4859 Jan, [facility] [place] [facility] [address] [id number] [place] [address]- 6965 Dec, [facility] [place] [facility] [address] [id number] [place] [address]- 2406 Dec, [facility] [place] [facility] [address] [id number] [place] [address]- 4836 Dec, [facility] [place] [facility] [address] [id number] [place] [address]- 9279 Dec, [facility] [place] [facility] [address] [id number] [place] [address]- 8194 Dec, [facility] [place] [facility] [address] [id number] [place] [address]- 2548 Dec, [facility] [place] [facility] [address] [id number] [place] [address] 2546 15 Dec, 2012 [facility] [place] [facility] [address] [id number] [place] [address] 2546 15 Dec, 2012 [facility] [place] [facility] [address] [id number] [place] [address] 2545 05 Dec, 2012 [facility] [place] [facility] [address] [id number] [place] [address] 254 Dec, [facility] [place] [facility] [address] [id number] [place] [address] 2544 Dec, [facility] [place] [facility] [address] [id number] [place] [address]- 9896 Nov, [facility] [place] [facility] [address] [id number] [place] [address] 2543 Nov, [facility] [place] [facility] [address] [id number] [place] [address] 2545 Nov, [facility] [place] [facility] [address] [id number] [place] [address] 2542 Nov, [facility] [place] [facility] [address] [id number] [place] [address]- 4003 Nov, [facility] [place] [facility] [address] [id number] [place] [address]- 4776 Oct, [facility] [place] [facility] [address] [id number], [place] [address]- 5981 Oct, [facility] [place] [facility] [address] [id number] [place] [address]- 1471 Sep, [facility] [place] [facility] [address] [id number], [place] [address]- 7933 Aug, [facility] [place] [facility] [address] [id number], [place] [address] Aug, [facility] [place] [facility] [address] [id number], [place] [address] Aug, [facility] [place] [facility] [address] [id number] [place] [address] Aug, [facility] [place] [facility] [address] [id number], [place] [address] Jul, [facility] [place] [facility] [address] [id number] [place] [address] Jul, [facility] [place] [facility] [address] [id number] [place] [address] June, [facility] [address] [id number] [place] [address] June, [facility] [address] [id number] [place] [address] June, [facility] [address] [id number] [place] [address] May, [facility] [address] [id number] [place] [address] May, [facility] [address] [id number] [place] [address] May, [facility] [address] [id number] [place] [address] Apr, [facility] [address] [id number] [place] [address] 3651 18 Apr, 2012 [facility] [address] [id number] [place] [address] 15 Apr, 2012 [facility] [address] [id number] [place] [address]- [address]687 14 Apr, 2012 [facility] [address] [facility] [id number] [place] [address]209 Apr, [facility] [address] [id number] [place] [address] Apr, [facility] [address] [id number] [place] [address] 68[address] Apr, [facility] [place] [facility] [address] [id number] [place] [address] Apr, [facility] [place] [facility] [address] [facility] [id number] [place] [address] Apr, [facility] [place] [facility] [address] [facility] [id number] [place] [address] 49[address] Apr, [facility] [address] [id number] [place] [address] Apr, [facility] [place] [facility] [address] [id number] [place] [address]- [address] 07 Apr, 2012 [facility] [place] [facility] [address] [id number] [place] [address] Apr, [facility] [place] [facility] [address] [id number] [place] [address] Mar, [facility] [address] [id number] [place] [address] Mar, [facility] [address] [id number] [place] [address] 245[address] Mar, [facility] [address] [id number] [place] [address] Mar, [facility] [place] [facility] [address] [id number] [place] [address] Mar, [facility] [address] [id number] [place] [address] Jan, [facility] [place] [facility] [address] [id number] [place] [address] 2372 28 Jan, 2012 [facility] [address] [id number] [place] [address] 22 Jan, 2012 [facility] [place] [facility] [address] [id number] [place] [address] 4847 22 Jan, 2012 [facility] [place] [facility] [address] [id number] [place] [address] 1386 14 Jan, 2012 [facility] [place] [facility] [address] [id number] [place] [address] 13 Jan, 2012 [facility] [place] [facility] [address] [id number] [place] [address]- [address] 13 Jan, 2012 [facility] [place] [facility] [address] [id number] [place] [address]- 0870 11 Jan, 2012 [facility] [place] [facility] [address] [id number] [place] [address]- [address]246 06 Jan, 2012 [facility] [place] [facility] [address] [id number] [place] [address] 8[address] 06 Jan, 2012 [facility] [place] [facility] [address] [id number] [place] [address]- 7078 04 Jan, 2012 [facility] [place] [facility] [address] [id number] [place] [address] Jan, [facility] [place] [facility] [address] [id number] [place] [address] Jan, [facility] [place] [facility] [address] [id number] [place] [address] 69[address] Jan, [facility] [place] [facility] [address] [id number] [place] [address]- [address] 26 Jan, 2012 [facility] [place] [facility] [address] [id number] [place] [address]- [address]95 26 Jan, 2012 [facility] [place] [facility] [address] [id number] [place] [address]- 4296 19 Jan, 2012 [facility] [place] [facility] [address] [facility] [id number] [place] [address]- [address] 19 Jan, 2012 [facility] [place] [facility] [address] [id number] [place] [address]- [address] 15 Jan, 2012 [facility] [place] [facility] [address] [id number] [place] [address]- 8922 15 Jan, 2012 [facility] [place] [facility] [address] [id number] [place] [address]- 6314 14 Jan, 2012 [facility] [place] [facility] [address] [id number] [place] [address]- [address]77 14 Jan, 2012 [facility] [place] [facility] [address] [id number] [place] [address]- 0682 14 Jan, 2012 [facility] [place] [facility] [address] [id number] [place] [address]- [address] 14 Jan, 2012 [facility] [place] [facility] [address] [id number] [place] [address]- 9316 07 Jan, 2012 [facility] [place] [facility] [address] [id number] [place] [address]- [address] 07 Jan, 2012 [facility] [place] [facility] [address] [id number] [place] [address]- 8352 16 Dec, 2011 [facility] [place] [facility] [address] [id number] [place] [address]- 3740 16 Dec, 2011 [facility] [place] [facility] [address] [id number] [place] [address]- 8930 13 Nov, 2011 [facility] [place] [facility] [address] [id number] [place] [address]- 3476 13 Nov, 2011 [facility] [place] [facility] [address] [id number] [place] [address]- 9482 13 Nov, 2011 [facility] [place] [facility] [address] [id number] [place] [address]- 6932 12 Nov, 2011 [facility] [place] [facility] [address] [id number] [place] [address]- 5197 30 Oct, 2011 [facility] [place] [facility] [address] [id number] [place] [address]- 0186 Sep, [facility] [place] [facility] [address] [id number] [place] [address]- 5809 23 Aug, 2011 [facility] [place] [facility] [address] [id number] [place] [address]- 4459 13 Aug, 2011 [facility] [place] [facility] [address] [id number] [place] [address]- [address]459 Aug, [facility] [place] [facility] [address] [id number] [place] [address] Aug, [facility] [place] [facility] [address] [id number] [place] [address] June, [facility] [address] [id number] [place] [address] June, [facility] [place] [facility] [address] [id number] [place] [address] May, [facility] [place] [facility] [address] [id number] [place] [address] Apr, [facility] [place] [facility] [address] [id number] [place] [address] Apr, [facility] [place] [facility] [address] [id number] [place] [address] Apr, [facility] [place] [facility] [address] [id number] [place] [address] Apr, [facility] [address] [facility] [id number] [place] [address] Apr, [facility] [place] [facility] [address] [id number] [place] [address] Apr, [facility] [address] [facility] [id number] [place] [address] Mar, [facility] [place] [facility] [address] [facility] [id number] [place] [address] Mar, [facility] [place] [facility] [address] [id number] [place] [address] Mar, [facility] [place] [facility] [address] [id number] [place] [address] Jan, [facility] [place] [facility] [address] [id number] [place] [address] Jan, [facility] [place] [facility] [address] [id number] [place] [address] Jan, [facility] [place] [facility] [address] [facility] [id number] [place] [address] Jan, [facility] [place] [facility] [address] [id number] [place] [address] Jan, [facility] [place] [facility] [address] [id number] [place] [address] Jan, [facility] [place] [facility] [address] [id number] [place] [address] Jan, [facility] [place] [facility] [address] [id number] [place] [address] Dec, [facility] [place] [facility] [address] [id number] [place] [address] Dec, [facility] [place] [facility] [address] [id number] [place] [address] Nov, [facility] [place] [facility] [address] [id number] [place] [address] Nov, [facility] [place] [facility] [address] [id number] [place] [address] Nov, [facility] [place] [facility] [address] [id number] [place] [address] Nov, [facility] [place] [facility] [address] [id number] [place] [address] Oct, [facility] [place] [facility] [address] [id number] [place] [address] Sep, [facility] [place] [facility] [address] [id number] [place] [address] Mar, [facility] [place] [facility] [address] [id number] [place] [address] Jan, [facility] [place] [facility] [address] [id number] [place] [address] Dec, [facility] [place] [facility] [address] [id number] [place] [address] Dec, [facility] [place] [facility] [address] [id number] [place] [address] 04 Dec, 2009 [facility] [place] [facility] [address] [id number] [place] [address] Dec, [facility] [place] [facility] [address] [id number] [place] [address] 26 Nov, 2009 [facility] [place] [facility] [address] [id number] [place] [address] 15 Nov, 2009 [facility] [place] [facility] [address] [id number] [place] [address] 14 Nov, 2009 [facility] [place] [facility] [address] [id number] [place] [address] 14 Nov, 2009 [facility] [place] [facility] [address] [id number] [place] [address] 13 Oct, 2009 [facility] [place] [facility] [address] [id number] [place] [address] 17 Jul, 2009 [facility] [place] [facility] [address] [id number], [place] [address] June, [facility] [place] [facility] [address] [id number] [place] [address] June, [facility] [place] [facility] [address] [id number], [place] [address] 17 Apr, 2009 [facility] [place] [facility] [address] [id number], [place] [address] Mar, [facility] [place] [facility] [address] [id number], [place] [address] Jan, [facility] [place] [facility] [address] [id number] [place] [address] Jan, [facility] [place] [facility] [address] [id number], [place] [address] Dec, [facility] [place] [facility] [address] [id number] [place] [address] Dec, [facility] [place] [facility] [address] [facility] [id number] [place] [address] 13 Dec, 2008 [facility] [address] [facility] [id number][place] [address] Dec, [facility] [address] [facility] [id number], [place] [address] Nov, [facility] [address] [facility] [id number][place] [address] Jul, [facility] [address] [facility] [id number][place] [address] June, IMMUNIZATIONS No Known Immunizations SOCIAL HISTORY Never Assessed REASON FOR VISIT Controlled Medication Refill PLAN OF CARE VITAL SIGNS MEDICATIONS Medication Instructions Dosage Frequency Start Date End Date Duration Status Endocet 10-325 MG Orally every 4-6 hours 1 tablet as needed Jan, 28 days Active RESULTS No Results PROCEDURES No Known procedures INSTRUCTIONS MEDICATIONS ADMINISTERED No Known Medications MEDICAL (GENERAL) HISTORY Type Description Date Medical History hypertension Medical History sleep apnea-did not tolerate CPAP Medical History oxygen dependent at [facility] Medical History colonic polyps Medical History [...]
--- OUTSIDE RECORDS SUMMARY | 2018-02-26 19:39 | XMS REPORT ---
Author Author CHRIS STEVENSON [facility] Address [address] [place] [address] Care Team Providers Care Pet Care Assistant Name Role Phone GRAHAMELLIOTT HANNAHANY Unavailable PROBLEMS Type Condition ICD9-CM Code UNM47-SX Code Onset Dates Condition Status SNOMED Code Problem Pulmonary asbestosis J61 Active 90151436 Problem Left ventricular diastolic dysfunction I51.9 Active 271990319 Problem Renal cyst, left N28.1 Active 37776189 Problem History of weight loss surgery Z98.84 Active 884880478 Problem Nocturnal hypoxia G47.34 Active 291791190 Problem Obstructive sleep apnea syndrome G47.33 Active 01605475 Problem Nephrolithiasis N20.0 Active 03597524 Problem Allergic rhinitis, unspecified allergic rhinitis type J30.9 Active 34382213 Problem 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 Active 62149734 Problem History of diverticulitis Z87.19 Active 616005515942134 Problem Hammertoe of left foot M20.42 Active 472248668 Problem Erectile dysfunction due to diseases classified elsewhere N52.1 Active 364334951 Problem Anxiety F41.9 Active 28822792 Problem Psoriasis L40.9 Active 0927499 Problem Essential hypertension I10 Active 50744969 Problem Moderate episode of recurrent major depressive disorder F33.1 Active 337783816 Problem Chronic prescription opiate use Z79.899 Active 092782869 Problem Acute right-sided low back pain with right-sided sciatica M54.41 Active 311040095 Problem Benign prostatic hyperplasia, presence of lower urinary tract symptoms unspecified, unspecified morphology N40.0 Active 080371669 Problem Low back pain M54.5 Active 218551549 Problem Cervicalgia M54.2 Active 8640480881611 Problem Urge incontinence N39.41 Active 254783625 Problem Age-related osteoporosis without current pathological fracture M81.0 Active 94167940 Problem Esophageal stricture K22.2 Active 21949742 Problem Chronic gout, unspecified cause, unspecified site M1A.9XX0 Active 96324296 Problem Primary insomnia F51.01 Active 268792288 Problem Hyperlipidemia, unspecified E78.5 Active 46286445 ALLERGIES No Information ENCOUNTERS Encounter Location Date Diagnosis [facility] [id number] [place] [address] 50753- 5233 Mar, [facility] [id number] [place] [address] 48240- 1876 Jan, [facility] [address] 54578- 9560 Dec, Anxiety F41.9 [facility] [address] 93150- 2302 Dec, [facility] [id number] [place] [address] 66736- 8467 Dec, Anxiety F41.9 [facility] [address] 13312- 1641 Dec, [facility] [id number] [place] [address] 99353- 7889 Dec, Encounter for immunization Z23 [facility] [id number] [place] [address] 91144 -5037 Dec, [facility] [id number] [place] [address] 78909- 3827 Dec, Hammertoe of left foot M20.42 ; Edema of left foot R60.0 and Onychomycosis B35.1 [facility] [id number] [place] [address] 15277 -9971 Nov, BMI 50.0-59.9, adult Z68.43 [facility] [address] 12450- 1952 Nov, [facility] [id number] [place] [address] 38544- 0194 Nov, [facility] [address] [place] [address]- 4169 Nov, Anxiety F41.9 [facility] [address] 65368- 2950 Oct, [facility] [id number] [place] [address] 23543- 3291 Oct, [facility] [address] 50553- 0372 Oct, BMI 45.0-49.9, adult Z68.42 ; Essential hypertension I10 ; Hyperlipidemia, unspecified E78.5 ; Anxiety F41.9 ; Obstructive sleep apnea syndrome G47.33 ; Moderate episode of recurrent major depressive disorder F33.1 ; Left ventricular diastolic dysfunction I51.9 ; Acute pain of right shoulder M25.511 ; Pain of left foot M79.672 and Pain in right foot M79.671 [facility] [id number] [place] [address] 40017- 7818 Oct, Anxiety F41.9 [facility] [id number] [place] [address] 82979 -3781 Sep, Left foot pain M79.672 [facility] [id number] [place] [address] 39801- 9696 Sep, [facility] [id number] [place] [address] 73674- 2719 Sep, Anxiety F41.9 [facility] [id number] [place] [address] 05108- 5510 Sep, [facility] [id number] [place] [address] 33020- 0847 Aug, [facility] [id number] [place] [address] 90687- 1001 Aug, [facility] [id number] [place] [address] 32893- 0182 Aug, Anxiety F41.9 [facility] [id number] [address]- 8525 Aug, [facility] [id number] [place] [address] 29072- 3508 Jul, [facility] [id number] [place] [address] 23262- 9618 Jul, Anxiety F41.9 [facility] [address] 76297- 8692 June, Anxiety F41.9 [facility] [id number] [place] [address] 42957- 3404 June, [facility] [id number] [place] [address] 05722- 1395 June, Low back pain M54.5 ; Chronic prescription opiate use Z79.899 ; Candidal intertrigo B37.2 ; Urge incontinence N39.41 ; Essential hypertension I10 ; Moderate episode of recurrent major depressive disorder F33.1 ; Age-related osteoporosis without current pathological fracture M81.0 and BMI 45.0-49.9, adult Z68.42 [facility] [id number] [place] [address] 18135- 7222 June, [facility] [id number] [place] [address] 72813- 1895 May, Anxiety F41.9 [facility] [id number] [place] [address] 99568- 3296 May, [facility] [id number] [place] [address] 47426- 0900 May, [facility] [id number] [place] [address] 55927- 3397 Apr, Anxiety F41.9 [facility] [id number] [place] [address] 89930- 8135 Apr, [facility] [id number] [place] [address] 06185- 1988 Apr, Low back pain M54.5 [facility] [id number] [address]- 5428 Apr, [facility] [id number] [place] [address] 99638- 4689 Apr, [facility] [id number] [place] [address] 81371- 8069 Apr, Anxiety F41.9 [facility] [id number] [place] [address] 56285- 7277 Apr, Right groin pain R10.31 [facility] [id number] [place] [address] 37683- 1895 Mar, [facility] [id number] [place] [address] 57548- 9349 Mar, [facility] [id number] [place] [address] 46632- 7750 Mar, Anxiety F41.9 [facility] [id number] [place] [address] 79577- 2320 Mar, Low back pain M54.5 [facility] [id number] [place] [address] 64758- 4479 Mar, Right groin pain R10.31 ; Low back pain M54.5 and BMI 45.0- 49.9, adult Z68.42 [facility] [id number] [address]- 5997 Mar, [facility] [id number] [place] [address] 85169- 0892 Mar, [facility] [id number] [place] [address] 96588- 6746 Mar, [facility] [id number] [address] -2593 Mar, [facility] [id number] [place] [address] 13228 -7515 Mar, Cough R05 ; Pneumonia of right lower lobe due to infectious organism J18.1 and Abnormal chest x-ray R93.8 [facility] [id number] [place] [address] 34982- 5192 Mar, [facility] [id number] [place] [address] 62162- 5957 Mar, [facility] [id number] [place] [address] 09902- 1723 Jan, Anxiety F41.9 [place] [address] 46345- 4470 Jan, [facility] [id number] [place] [address] 80359- 5350 Jan, Moderate episode of recurrent major depressive disorder F33.1 [place] [address] 85212- 9439 Jan, Subacromial bursitis of right shoulder joint M75.51 ; Shortness of breath on exertion R06.02 and BMI 45.0-49.9, adult Z68.42 [facility] [id number] [place] [address] 46672- 6598 Dec, Anxiety F41.9 [facility] [id number] [place] [address] 64592- 4660 Dec, [facility] [id number] [place] [address] 61066- 3766 Dec, Low back pain M54.5 [place] [address] 35476- 1200 Oct, Low back pain M54.5 [facility] [id number] [place] [address] 18005- 9153 Sep, [facility] [address] 96534- 0023 Sep, Erectile dysfunction due to diseases classified elsewhere N52.1 [facility] [id number] [place] [address] 81042- 7550 Sep, Erectile dysfunction due to diseases classified elsewhere N52.1 [facility] [id number] [place] [address] 37857- 5053 Sep, [facility] [address] 87922- 1401 Sep, Erectile dysfunction due to diseases classified elsewhere N52.1 [facility] [id number] [place] [address] 90731- 5915 Sep, Low back pain M54.5 and Anxiety F41.9 [facility] [id number] [place] [address] 74139 -1760 Aug, Acute allergic rhinitis J30.9 [facility] [id number] [place] [address] 47356- 3582 Aug, [facility] [id number] [place] [address] 71273- 7224 Aug, Anxiety F41.9 [facility] [id number] [place] [address] 97235- 6448 Jul, Low back pain M54.5 ; Chronic prescription opiate use Z79.899 and Essential hypertension I10 [facility] [id number] [place] [address] 69050- 6003 Jul, Anxiety F41.9 and Low back pain M54.5 [facility] [id number] [place] [address] 61895- 8748 June, [facility] [address] 21136- 3671 June, Anxiety F41.9 [facility] [id number] [place] [address] 98088- 9397 May, Low back pain M54.5 [facility] [id number] [address]- 7432 May, [facility] [id number] [place] [address] 20374- 7876 May, Anxiety F41.9 [facility] [id number] [place] [address] 13899- 5726 Apr, [facility] [id number] [place] [address] 38223- 3820 Apr, Low back pain M54.5 [facility] [id number] [place] [address] 49652- 9898 Apr, Moderate episode of recurrent major depressive disorder F33.1 [place] [id number] [place] [address] 70892- 6741 Apr, Anxiety F41.9 [place] [id number] [place] [address] 53907- 6603 Apr, Low back pain M54.5 [facility] [id number] [place] [address] 30167- 7945 15 Apr, 2016 Elevated alkaline phosphatase level R74.8 [facility] [id number] [place] [address] 28353- 8982 10 Apr, 2016 Alkaline phosphatase elevation R74.8 [place] [id number] [place] [address] 58149- 2301 06 Apr, 2016 Anxiety F41.9 [facility] [id number] [place] [address] 24606- 3351 Apr, Low back pain M54.5 [facility] [id number] [place] [address] 48529- 7137 03 Apr, 2016 History of weight loss surgery Z98.84 ; Encounter for hepatitis C screening test for low risk patient Z11.59 ; History of herpes genitalis Z86.19 ; Essential hypertension I10 ; Hyperlipidemia, unspecified E78.5 ; Exposure to STD Z20.2 and Benign prostatic hyperplasia, presence of lower urinary tract symptoms unspecified, unspecified morphology N40.0 [facility] [id number] [place] [address] 34450- 1081 Apr, [facility] [id number] [place] [address] 85101- 5416 Mar, [facility] [id number] [place] [address] 38102- 2889 Mar, [facility] [id number] [place] [address] 04867- 3251 Mar, [facility] [id number] [place] [address] 57225- 3255 Mar, Acute right-sided low back pain with right-sided sciatica M54.41 [facility] [id number] [place] [address] 51793- 4517 Mar, Low back pain M54.5 [facility] [id number] [place] [address] 67040 -6284 Mar, Muscle strain of chest wall, initial encounter S29.011A ; Muscle strain of right thigh, initial encounter S76.911A and Acute non- recurrent maxillary sinusitis J01.00 [facility] [id number] [place] [address] 61114- 7237 Mar, Benign prostatic hyperplasia, presence of lower urinary tract symptoms unspecified, unspecified morphology N40.0 [facility] [address] [address]- 2957 Jan, Low back pain M54.5 [facility] [id number] [place] [address] 06082- 2733 Jan, Low back pain M54.5 ; Essential hypertension I10 ; Hyperlipidemia, unspecified E78.5 ; Anxiety F41.9 ; Moderate episode of recurrent major depressive disorder F33.1 ; Primary insomnia F51.01 ; Exposure to STD Z20.2 ; Encounter for hepatitis C screening test for low risk patient Z11.59 and History of herpes genitalis Z86.19 [facility] [address] [address]- 1516 17 Jan, 2016 [facility] [id number] [place] [address] 28820- 8018 20 Dec, 2015 [facility] [id number] [place] [address] 82146- 4415 14 Dec, 2015 Anxiety F41.9 ; Cervicalgia M54.2 ; Moderate episode of recurrent major depressive disorder F33.1 and Encounter for immunization Z23 [facility] [id number] [place] [address] 94903- 3494 Oct, [facility] [id number] [place] [address] 49130- 1069 Oct, [facility] [id number] [place] [address] 69266- 2037 16 Nov, 2015 [facility] [id number] [place] [address] 17780- 1439 Oct, [facility] [id number] [place] [address] 01478- 4951 Sep, [facility] [id number] [place] [address] 67526- 0287 Aug, Low back pain M54.5 ; Anxiety F41.9 ; Primary insomnia F51.01 and Chronic prescription opiate use Z79.899 [facility] [address] [address]- 9179 Jul, [facility] [id number] [place] [address] 20938- 8335 Jul, [facility] [id number] [place] [address] 20680- 2838 Jul, [facility] [id number] [place] [address] 71203- 1381 Jul, [facility] [address] [address]- 4589 Jul, [facility] [address] [address]- 9492 June, [facility] [address] [address]- 7928 June, [facility] [id number] [address]- 2842 June, [facility] [address] [address]- 6975 June, [facility] [id number] [place] [address] 73821- 7285 May, Preoperative cardiovascular examination Z01.810 [facility] [id number] [address]- 8444 May, [facility] [id number] [address]- 2254 Apr, [facility] [id number] [address]- 0329 Apr, Osteoarthritis of right knee M17.9 [facility] [id number] [address]- 5294 30 May, 2015 [facility] [id number] [address]- 5756 Apr, [facility] [id number] [address]- 1147 Apr, [facility] [id number] [address]- 3319 09 May, 2015 [facility] [id number] [address]- 5776 08 May, 2015 History of excessive cerumen Z78.9 ; Obstructive sleep apnea syndrome G47.33 ; History of diverticulitis Z87.19 and Nephrolithiasis N20.0 [facility] [id number] [address]- 4926 29 Apr, 2015 [facility] [id number] [place] [address] 87277 -8411 23 Apr, 2015 Abdominal pain R10.9 [facility] [id number] [place] [address] 46769- 2200 Apr, [facility] [address] 05306- 8539 Apr, Osteoarthritis of right knee M17.9 [facility] [id number] [place] [address] 50603- 4578 Mar, [facility] [id number] [place] [address] 87371- 3019 Mar, [facility] [id number] [place] [address] 41303- 2395 Mar, [facility] [id number] [place] [address] 72616- 9511 Mar, [facility] [id number] [place] [address] 21821 -5047 Mar, Pyelonephritis N12 ; Left-sided thoracic back pain M54.6 ; Hematuria, unspecified R31.9 and Kidney stone N20.0 [facility] [id number] [place] [address] 64169- 2762 Mar, History of weight loss surgery Z98.84 [facility] [id number] [place] [address] 41111- 3975 Mar, History of weight loss surgery Z98.84 and Hyperlipidemia, unspecified E78.5 [place] [id number] [place] [address] 13442- 0143 Mar, Low back pain M54.5 ; Chronic prescription opiate use Z79.899 ; Hyperlipidemia, unspecified E78.5 ; Spasm of back muscles M62.830 and History of weight loss surgery Z98.84 [facility] [address] [address]- 0056 Jan, [facility] [id number] [place] [address] [phone]- [phone] Jan, [facility] [id number] [place] [address] [id number]- [phone] Jan, [facility] [id number] [place] [phone]- [phone] Dec, [facility] [id number] [place] [address] 42584- [phone] Dec, [facility] [id number] [place] [address] [phone]- [phone] Dec, [facility] [id number] [place] [address] 62442- [phone] Nov, [facility] [id number] [place] [address] [phone]- 4570 Nov, Obstructive sleep apnea syndrome G47.33 and Pharyngoesophageal dysphagia R13.14 [facility] [id number] [place] [address] [phone]- [phone] Nov, [facility] [id number] [place] [address] 54486- [phone] Nov, [facility] [id number] [place] [address] [phone]- [phone] Nov, [facility] [id number] [place] [id number] 30 Oct, 2014 Dental examination V72.2 [facility] [id number] [place] [address] [phone]- [phone] Oct, [facility] [id number] [place] [address] [phone]- [phone] Oct, [facility] [id number] [place] [address] [phone]- [phone] Oct, [facility] [id number] [address] Oct, [facility] [id number] [place] [address] [phone]- 0673 Oct, BPH (benign prostatic hyperplasia) 600.00 and Urinary frequency 788.41 [facility] [id number] [place] [address] [phone]- [phone] Oct, [facility] [id number] [place] [address] [phone]- [phone] Oct, [facility] [id number] [place] [address] [phone]- [phone] Oct, [facility] [id number] [place] [address]68 Sep, Cerumen impaction 380.4 ; Cerumen debris on tympanic membrane 380.4 ; Psoriasis 696.1 and MCIKY (secretory otitis media) 381.4 [facility] [id number] [id number] Sep, Dental examination V72.2 [facility] [id number] [place] [address]- 5069 Sep, Fatigue 780.79 ; Irritable bowel syndrome 564.1 ; Overweight 278.02 ; Poor sleep V69.4 ; Shaking spells 781.0 and Broken tooth 873.63 [facility] [address] [address] 6[address] Sep, [facility] [id number] [place] [address]- 6767 Sep, [facility] [id number] [place] [address] [id number]- 2923 Aug, [facility] [id number] [place] [address]- 2812 Jul, [facility] [address] [facility] [id number] [place] [address] 2033 Jul, [facility] [address] [place] [address] 2240 Jul, [facility] [address]00565100[facility] [place] [address]- 9264 Jul, [facility] [id number] [address] 6[address] June, Arthritis of knee, right 716.96 [facility] [address] [facility] [id number] [place] [address]- 8533 June, [facility] [id number] [address] 7610 June, Elevated blood pressure reading without diagnosis of hypertension 796.2 [facility] [address]005[address] [address] 8456 June, [facility] [id number] [address]- 2943 June, [facility] [address]65100[facility] [place] [address]- 8932 June, [facility] [id number] [address]- 7450 June, [facility] [address]005[address] [address]- 9355 May, [facility] [address] [id number] [address]- 3069 May, [facility] [address] [id number] [place] [address]- 5536 Apr, [facility] [address] [facility] [id number] [place] [address]- 5617 Apr, [facility] [address] [id number] [place] [address] 1948 Apr, [facility] [place] [facility] [address] [id number] [place] [address]- 1975 27 Apr, 2014 [facility] [place] [facility] [address] [id number] [place] [address]- 8364 Apr, 2014 [facility] [place] [facility] [address] [id number] [place] [address]- 3741 20 Apr, 2014 [facility] [place] [facility] [address] [id number] [place] [address]- 5541 Apr, 2014 [facility] [place] [facility] [address] [id number] [place] [address]- 8822 13 Apr, 2014 [facility] [place] [facility] [address] [id number] [place] [address]- 9193 Apr, 2014 [facility] [place] [facility] [address] [facility] [id number] [place] [address]- 0162 Apr, 2014 [facility] [place] [facility] [address] [facility] [id number] [place] [address]- 4690 Apr, 2014 [facility] [place] [facility] [address] [facility] [id number] [place] [address]- 4545 Apr, 2014 [facility] [place] [facility] [address] [facility] [id number] [place] [address]- 1899 24 Apr, 2014 [facility] [place] [facility] [address] [facility] [id number] [place] [address]- 1579 Apr, 2014 [facility] [place] [facility] [address] [facility] [id number] [address]- 1471 Apr, 2014 [facility] [place] [facility] [address] [facility] [id number] [place] [address]- 3716 Apr, 2014 [facility] [place] [facility] [address] [id number] [place] [address]- 2884 Apr, 2014 [facility] [place] [facility] [address] [facility] [id number] [place] [address]- 0933 Apr, 2014 [facility] [place] [facility] [address] [facility] [id number] [address]- 7456 18 Apr, 2014 [facility] [place] [facility] [address] [id number] [place] [address]- 1866 18 Apr, 2014 [facility] [place] [facility] [address] [id number] [place] [address]- 8432 13 Apr, 2014 [facility] [place] [facility] [address] [facility] [id number] [place] [address]- 9007 Apr, 2014 [facility] [place] [facility] [address] [facility] [id number] [place] [address]- 2295 Apr, 2014 [facility] [place] [facility] [address] [facility] [id number] [place] [address]- 5657 Apr, 2014 [facility] [place] [facility] [address] [facility] [id number] [place] [address]- 3210 12 Apr, 2014 [facility] [place] [facility] [address] [id number] [place] [address]- 8254 Apr, 2014 [facility] [place] [facility] [address] [facility] [id number] [place] [address]- 2995 Apr, 2014 [facility] [place] [facility] [address] [id number] [place] [address]- 9805 Apr, 2014 [facility] [place] [facility] [address] [id number] [place] [address]- 3811 Apr, 2014 [facility] [place] [facility] [address] [facility] [id number] [place] [address]- 0126 Apr, 2014 [facility] [place] [facility] [address] [facility] [id number] [place] [address]- 2540 Apr, 2014 [facility] [place] [facility] [address] [facility] [id number] [place] [address]- 9647 Apr, 2014 [facility] [place] [facility] [address] [facility] [id number] [address]- 8956 03 Apr, 2014 [facility] [place] [facility] [address] [facility] [id number] [address]- 1826 Mar, [facility] [place] [facility] [address] [id number] [place] [address]- 4317 Mar, [facility] [place] [facility] [address] [id number] [place] [address]- 8738 Mar, [facility] [place] [facility] [address] [id number] [place] [address]- 8716 Mar, [facility] [place] [facility] [address] [id number] [place] [address]- 7931 Mar, [facility] [place] [facility] [address] [id number] [place] [address]- 4524 Mar, [facility] [place] [facility] [address] [id number] [place] [address]- 3972 Mar, [facility] [place] [facility] [address] [id number] [place] [address]- 5538 Mar, [facility] [place] [facility] [address] [id number] [place] [address]- 9057 Mar, [facility] [place] [facility] [address] [id number] [place] [address]- 5341 Mar, [facility] [place] [facility] [address] [id number] [place] [address]- 0889 Jan, [facility] [place] [facility] [address] [id number] [place] [address]- 2788 Jan, [facility] [place] [facility] [address] [id number] [address]- 2745 Jan, [facility] [place] [facility] [address] [id number] [place] [address]- 7212 Jan, [facility] [place] [facility] [address] [id number] [place] [address]- 6819 Jan, [facility] [place] [facility] [address] [id number] [place] [address]- 4630 Jan, [facility] [place] [facility] [address] [id number] [place] [address]- 7161 05 Jan, 2014 [facility] [place] [facility] [address] [id number] [place] [address]- 7624 Jan, [facility] [place] [facility] [address] [id number] [place] [address]- 6006 Jan, [facility] [place] [facility] [address] [id number] [place] [address]- 4374 Jan, [facility] [place] [facility] [address] [id number] [place] [address]- 0762 Jan, [facility] [place] [facility] [address] [id number] [place] [address]- 4916 Jan, [facility] [place] [facility] [address] [id number] [place] [address]- 9923 Dec, [facility] [place] [facility] [address] [id number] [place] [address]- 1215 Dec, [facility] [place] [facility] [address] [id number] [place] [address]- 1460 Dec, [facility] [place] [facility] [address] [id number] [place] [address]- 7559 Dec, [facility] [place] [facility] [address] [id number] [place] [address]- 4104 Dec, [facility] [place] [facility] [address] [id number] [place] [address]- 4328 Dec, [facility] [place] [facility] [address] [id number] [place] [address]- 8076 Dec, [facility] [place] [facility] [address] [id number] [place] [address]- 4612 Dec, [facility] [place] [facility] [address] [id number] [place] [address]- 3243 Dec, [facility] [place] [facility] [address] [id number] [place] [address]- 7382 Dec, [facility] [place] [facility] [address] [id number] [place] [address]- 1685 Nov, [facility] [place] [facility] [address] [id number] [place] [address]- 2946 Nov, [facility] [place] [facility] [address] [id number] [place] [address]- 7443 Nov, [facility] [place] [facility] [address] [id number] [place] [address]- 4917 Nov, [facility] [place] [facility] [address] [id number] [place] [address]- 3442 Nov, [facility] [place] [facility] [address] [id number] [place] [address]- 0180 Nov, [facility] [place] [facility] [address] [id number] [place] [address]- 2366 Nov, [facility] [place] [facility] [address] [id number] [place] [address]- 7393 Nov, [facility] [place] [facility] [address] [id number] [place] [address]- 0152 Nov, [facility] [place] [facility] [address] [id number] [place] [address]- 0302 Nov, [facility] [place] [facility] [address] [id number] [address]- 0027 Nov, [facility] [place] [facility] [address] [id number] [address]- 5458 17 Nov, 2013 [facility] [place] [facility] [address] [id number] [place] [address]- 3485 Nov, [facility] [place] [facility] [address] [id number] [place] [address]- 8767 14 Nov, 2013 [facility] [place] [facility] [address] [id number] [address]- 8052 10 Nov, 2013 [facility] [place] [facility] [address] [id number] [address]- 8596 Nov, [facility] [place] [facility] [address] [id number] [place] [address]- 5862 Nov, [facility] [place] [facility] [address] [id number] [place] [address]- 0066 Nov, [facility] [place] [facility] [address] [id number] [place] [address]- 8814 Nov, [facility] [place] [facility] [address] [id number] [place] [address]- 9220 Nov, [facility] [place] [facility] [address] [id number] [place] [address]- 6664 Oct, [facility] [place] [facility] [address] [id number] [place] [address]- 9127 Oct, [facility] [place] [facility] [address] [id number] [place] [address]- 3700 Oct, [facility] [place] [facility] [address] [id number] [place] [address]- 0525 Oct, [facility] [place] [facility] [address] [id number] [place] [address]- 9211 Oct, [facility] [place] [facility] [address] [id number] [place] [address]- 6621 Oct, [facility] [place] [facility] [address] [id number] [place] [address]- 9640 Oct, [facility] [place] [facility] [address] [id number] [address]- 1440 Oct, [facility] [place] [facility] [address] [id number] [place] [address]- 4099 Oct, [facility] [place] [facility] [address] [id number] [place] [address]- 3909 Oct, [facility] [place] [facility] [address] [id number] [place] [address]- 9940 Sep, [facility] [place] [facility] [address] [id number] [place] [address]- 1427 Sep, [facility] [place] [facility] [address] [id number] [place] [address]- 8220 Sep, [facility] [place] [facility] [address] [id number] [place] [address]- 2175 Sep, [facility] [place] [facility] [address] [id number] [place] [address]- 1836 Sep, [facility] [place] [facility] [address] [id number] [place] [address]- 4390 Sep, [facility] [place] [facility] [address] [id number] [place] [address]- 6649 Sep, [facility] [place] [facility] [address] [id number] [place] [address]- 1479 Sep, [facility] [place] [facility] [address] [id number] [place] [address]- 5827 Sep, [facility] [place] [facility] [address] [id number] [place] [address]- 1236 Sep, [facility] [place] [facility] [address] [id number] [place] [address]- 0622 Sep, [facility] [place] [facility] [address] [id number] [place] [address]- 1421 Sep, [facility] [place] [facility] [address] [id number] [place] [address]- 9989 Sep, [facility] [place] [facility] [address] [id number] [place] [address]- 8414 Sep, [facility] [place] [facility] [address] [id number] [place] [address]- 0778 Sep, [facility] [place] [facility] [address] [id number] [place] [address]- 2402 Sep, [facility] [place] [facility] [address] [id number] [place] [address]- 5074 Sep, [facility] [place] [facility] [address] [id number] [place] [address]- 4950 Sep, [facility] [place] [facility] [address] [id number] [place] [address]- 6728 Sep, [facility] [place] [facility] [address] [id number] [place] [address]- 6457 Sep, [facility] [place] [facility] [address] [id number] [place] [address]- 4822 Sep, [facility] [place] [facility] [address] [id number] [place] [address]- 8412 Sep, [facility] [place] [facility] [address] [id number] [place] [address]- 7401 Sep, [facility] [place] [facility] [address] [id number] [place] [address]- 1535 Sep, [facility] [place] [facility] [address] [id number] [place] [address]- 9613 Sep, [facility] [place] [facility] [address] [id number] [place] [address]- 4011 Aug, [facility] [place] [facility] [address] [id number] [place] [address]- 1788 Aug, [facility] [place] [facility] [address] [id number] [place] [address]- 4124 Aug, [facility] [place] [facility] [address] [id number] [place] [address]- 5301 Aug, [facility] [place] [facility] [address] [id number] [place] [address]- 3594 Aug, [facility] [place] [facility] [address] [id number] [place] [address]- 6757 Aug, [facility] [place] [facility] [address] [id number] [place] [address]- 8998 Aug, [facility] [place] [facility] [address] [id number] [place] [address]- 7343 Aug, [facility] [place] [facility] [address] [id number] [place] [address]- 4889 Aug, [facility] [place] [facility] [address] [id number] [place] [address]- 8356 Aug, [facility] [place] [facility] [address] [id number] [place] [address]- 1839 Aug, [facility] [place] [facility] [address] [id number] [place] [address]- 5699 Aug, [facility] [place] [facility] [address] [id number] [place] [address]- 1714 Aug, [facility] [place] [facility] [address] [id number] [place] [address]- 2352 Jul, [facility] [place] [facility] [address] [id number] [place] [address]- 6025 Jul, [facility] [place] [facility] [address] [id number] [place] [address]- 0358 Jul, [facility] [place] [facility] [address] [id number] [place] [address]- 8888 Jul, [facility] [place] [facility] [address] [id number] [place] [address]- 3132 Jul, [facility] [place] [facility] [address] [id number] [place] [address]- 7940 Jul, [facility] [place] [facility] [address] [id number] [place] [address]- 0759 Jul, [facility] [place] [facility] [address] [id number] [place] [address]- 2242 June, [facility] [place] [facility] [address] [id number] [place] [address]- 2244 June, [facility] [place] [facility] [address] [id number] [place] 4474 June, [facility] [place] [facility] [address] [id number] [place] [address]- 8184 June, [facility] [place] [facility] [address] [id number] [place] [address]- 4205 May, [facility] [place] [facility] [address] [id number] [place] [address]- 3819 May, [facility] [place] [facility] [address] [id number] [place] [address]- 2110 May, [facility] [place] [facility] [address] [id number] [place] [address]- 9038 May, [facility] [place] [facility] [address] [id number] [place] [address]- 4470 May, [facility] [place] [facility] [address] [id number] [place] [address]- 0001 May, [facility] [place] [facility] [address] [id number] [place] [address]- 7466 May, [facility] [place] [facility] [address] [id number] [place] [address]- 0800 May, [facility] [place] [facility] [address] [id number] [place] [address]- 8191 May, [facility] [place] [facility] [address] [id number] [place] [address]- 1430 May, [facility] [place] [facility] [address] [id number] [place] [address]- 9865 Apr, [facility] [place] [facility] [address] [id number] [place] [address]- 0017 Apr, [facility] [place] [facility] [address] [id number] [place] [address]- 4934 Apr, [facility] [place] [facility] [address] [id number] [place] [address]- 2827 Apr, [facility] [place] [facility] [address] [id number] [place] [address]- 5536 Apr, [facility] [address] [id number] [place] [address]- 6796 Apr, [facility] [place] [facility] [address] [id number] [place] [address]- 3866 Apr, [facility] [place] [facility] [address] [id number] [place] [address]- 3996 Apr, [facility] [place] [facility] [address] [id number] [place] [address]- 3491 Apr, [facility] [place] [facility] [address] [id number] [place] [address]- 4897 Apr, [facility] [place] [facility] [address] [id number] [place] [address]- 7657 Mar, [facility] [address] [id number] [place] [address] Mar, [facility] [place] [facility] [address] [id number] [place] [address] Mar, [facility] [address] [facility] [id number] [place] [address] Mar, [facility] [place] [facility] [address] [facility] [id number] [place] [address] Mar, [facility] [place] [facility] [address] [id number] [place] [address] Mar, [facility] [place] [facility] [address] [id number] [place] [address] Jan, [facility] [place] [facility] [address] [id number] [place] [address] Jan, [facility] [place] [facility] [address] [id number] [place] [address] Jan, [facility] [place] [facility] [address] [id number] [place] [address] Jan, [facility] [place] [facility] [address] [id number] [place] [address] Jan, [facility] [place] [facility] [address] [id number] [place] [address] Jan, [facility] [place] [facility] [address] [id number] [place] [address] 97[address] Jan, [facility] [place] [facility] [address] [id number] [place] [address] Jan, [facility] [place] [facility] [address] [id number] [place] [address] Jan, [facility] [place] [facility] [address] [id number] [place] [address] Dec, [facility] [place] [facility] [address] [id number] [place] [address] Dec, [facility] [place] [facility] [address] [id number] [place] [address] Dec, [facility] [place] [facility] [address] [id number] [place] [address]- [address] Dec, [facility] [place] [facility] [address] [id number] [place] [address]273 Dec, [facility] [place] [facility] [address] [id number] [place] [address]- 9468 Dec, [facility] [place] [facility] [address] [id number] [place] [address] 3974 Dec, [facility] [place] [facility] [address] [id number] [place] [address] 2542 Dec, [facility] [place] [facility] [address] [id number] [place] [address]- [address]178 Dec, [facility] [place] [facility] [address] [id number] [place] [address]- [address] 05 Dec, 2012 [facility] [place] [facility] [address] [id number] [place] [address]- [address] Dec, [facility] [place] [facility] [address] [id number] [place] [address]872 Nov, [facility] [place] [facility] [address] [id number] [place] [address]646 Nov, [facility] [place] [facility] [address] [id number] [place] [address] 2549 Nov, [facility] [place] [facility] [address] [id number] [place] [address] 2545 Nov, [facility] [place] [facility] [address] [id number] [place] [address] 2544 Nov, [facility] [place] [facility] [address] [id number] [place] [address] 2546 Oct, [facility] [place] [facility] [address] [id number] [place] [address] 2547 Oct, [facility] [place] [facility] [address] [id number] [address] Sep, [facility] [place] [facility] [address] [id number] [place] [address] Aug, [facility] [place] [facility] [address] [id number] [place] [address] Aug, [facility] [place] [facility] [address] [id number] [address] Aug, [facility] [place] [facility] [address] [id number] [address] Aug, [facility] [place] [facility] [address] [id number] [place] [address]41 Jul, [facility] [place] [facility] [address] [id number] [address]- [address] Jul, [facility] [place] [facility] [address] [id number] [place] [address] 2544 June, [facility] [place] [facility] [address] [id number] [place] [address] 47[address] June, [facility] [address] [id number] [place] [address]65 June, [facility] [address] [id number] [place] [address] May, [facility] [address] [id number] [place] [address] May, [facility] [address] [id number] [place] [address] 254 May, [facility] [address] [id number] [place] [address]- [address] Apr, [facility] [address] [id number] [place] [address] 18 Apr, 2012 [facility] [address] [facility] [id number] [place] [address] 15 Apr, 2012 [facility] [address] [id number] [place] [address]- [address]99 14 Apr, 2012 [facility] [address] [facility] [id number] [place] [address]- 27[address] Apr, [facility] [address] [facility] [id number] [place] [address] 27 Apr, 2012 [facility] [place] [facility] [address] [id number] [place] [address] Apr, [facility] [address] [id number] [place] [address]- 4224 Apr, [facility] [place] [facility] [address] [id number] [place] [address]- 1108 Apr, [facility] [place] [facility] [address] [facility] [id number] [place] [address] Apr, [facility] [place] [facility] [address] [facility] [id number] [place] [address]- 4288 Apr, [facility] [address] [id number] [place] [address] 3708 Apr, [facility] [place] [facility] [address] [id number] [place] [address]- 1086 Apr, [facility] [place] [facility] [address] [id number] [place] [address]- 8666 Mar, [facility] [place] [facility] [address] [id number] [place] [address]- 1498 Mar, [facility] [place] [facility] [address] [id number] [place] [address] 9748 Mar, [facility] [place] [facility] [address] [id number] [place] [address]- 3465 Mar, [facility] [place] [facility] [address] [id number] [place] [address]- 0092 Mar, [facility] [place] [facility] [address] [id number] [place] [address]- 6[address] Jan, [facility] [place] [facility] [address] [id number] [place] [address] 28 Jan, 2012 [facility] [place] [facility] [address] [id number] [place] [address] Jan, [facility] [place] [facility] [address] [id number] [place] [address] 22 Jan, 2012 [facility] [place] [facility] [address] [id number] [place] [address] 2543 14 Jan, 2012 [facility] [place] [facility] [address] [id number] [place] [address] 2546 13 Jan, 2012 [facility] [place] [facility] [address] [id number] [place] [address] 3315 13 Jan, 2012 [facility] [place] [facility] [address] [id number] [place] [address]706 11 Jan, 2012 [facility] [place] [facility] [address] [id number] [place] [address] 06 Jan, 2012 [facility] [place] [facility] [address] [id number] [place] [address] 1176 06 Jan, 2012 [facility] [place] [facility] [address] [id number] [place] [address] 89[address] Jan, [facility] [place] [facility] [address] [id number] [place] [address]396 04 Jan, 2012 [facility] [place] [facility] [address] [id number] [place] [address]157 Jan, [facility] [place] [facility] [address] [id number] [place] [address] 74[address] Jan, [facility] [place] [facility] [address] [id number] [place] [address] Dec, [facility] [place] [facility] [address] [id number] [place] [address] 5867 26 Jan, 2012 [facility] [place] [facility] [address] [id number] [place] [address] 8716 19 Jan, 2012 [facility] [place] [facility] [address] [id number] [place] [address] 5868 19 Jan, 2012 [facility] [place] [facility] [address] [facility] [id number] [place] [address] 15 Jan, 2012 [facility] [place] [facility] [address] [id number] [place] [address]- 8076 15 Jan, 2012 [facility] [place] [facility] [address] [id number] [place] [address]- 8893 14 Jan, 2012 [facility] [place] [facility] [address] [id number] [place] [address]- 6502 14 Jan, 2012 [facility] [place] [facility] [address] [id number] [place] [address]- 4922 14 Jan, 2012 [facility] [place] [facility] [address] [id number] [place] [address]- 7292 14 Jan, 2012 [facility] [place] [facility] [address] [id number] [place] [address]- 1878 07 Jan, 2012 [facility] [place] [facility] [address] [id number] [place] [address] 5720 Dec, [facility] [place] [facility] [address] [id number] [place] [address] 2136 16 Dec, 2011 [facility] [place] [facility] [address] [id number] [place] [address] 4807 16 Dec, 2011 [facility] [place] [facility] [address] [id number] [place] [address]- 7264 13 Nov, 2011 [facility] [place] [facility] [address] [id number] [place] [address]- 2652 13 Nov, 2011 [facility] [place] [facility] [address] [id number] [place] [address]- 6197 13 Nov, 2011 [facility] [place] [facility] [address] [id number] [place] [address]- 8566 12 Nov, 2011 [facility] [place] [facility] [address] [id number] [place] [address] 4400 Sep, [facility] [place] [facility] [address] [id number] [place] [address] 2800 Sep, [facility] [place] [facility] [address] [id number] [place] [address] 0792 Aug, [facility] [place] [facility] [address] [id number] [place] [address] 7420 Aug, [facility] [place] [facility] [address] [id number] [place] [address]- 0722 Aug, [facility] [place] [facility] [address] [id number] [place] [address] 6262 Aug, [facility] [place] [facility] [address] [id number] [place] [address] 1689 June, [facility] [place] [facility] [address] [id number] [place] [address] 6786 June, [facility] [address] [id number] [place] [address] May, [facility] [place] [facility] [address] [id number] [place] [address]- 5666 Apr, [facility] [place] [facility] [address] [id number] [place] [address]- 1096 Apr, [facility] [place] [facility] [address] [id number] [place] [address]- 4236 Apr, [facility] [place] [facility] [address] [id number] [place] [address]- 8361 Apr, [facility] [place] [facility] [address] [id number] [place] [address]- 8566 Apr, [facility] [address] [id number] [place] [address]- 5889 Apr, [facility] [place] [facility] [address] [id number] [place] [address] 5936 Mar, [facility] [address] [facility] [id number] [place] [address]- 5604 Mar, [facility] [place] [facility] [address] [facility] [id number] [place] [address]- 3056 Mar, [facility] [address] [id number] [place] [address]- 5462 Jan, [facility] [place] [facility] [address] [id number] [place] [address]- 6169 Jan, [facility] [place] [facility] [address] [id number] [place] [address]- 8160 Jan, [facility] [place] [facility] [address] [id number] [place] [address] Jan, [facility] [place] [facility] [address] [facility] [id number] [place] [address]- 5896 Jan, [facility] [place] [facility] [address] [id number] [place] [address]- 0515 Jan, [facility] [place] [facility] [address] [id number] [place] [address]- 2509 Jan, [facility] [place] [facility] [address] [id number] [place] [address] 2546 Dec, [facility] [place] [facility] [address] [id number] [place] [address] 9463 Dec, [facility] [place] [facility] [address] [id number] [place] [address]- 7857 Nov, [facility] [place] [facility] [address] [id number] [place] [address]- 6362 Nov, [facility] [place] [facility] [address] [id number] [place] [address]- 0069 Nov, [facility] [place] [facility] [address] [id number] [place] [address]- 9858 Nov, [facility] [place] [facility] [address] [id number] [place] [address]- 7574 Oct, [facility] [place] [facility] [address] [id number] [place] [address]- 1826 Sep, [facility] [place] [facility] [address] [id number] [place] [address]- 0098 Mar, [facility] [place] [facility] [address] [id number] [place] [address]- 7258 Jan, [facility] [place] [facility] [address] [id number] [place] [address]- 1043 Dec, [facility] [place] [facility] [address] [id number] [place] [address]- 0474 Dec, [facility] [place] [facility] [address] [id number] [place] [address]- 2546 Dec, [facility] [place] [facility] [address] [id number] [place] [address]- 9246 Dec, [facility] [place] [facility] [address] [id number] [place] [address]- 3694 26 Nov, 2009 [facility] [place] [facility] [address] [id number] [place] [address]- 5617 15 Nov, 2009 [facility] [place] [facility] [address] [id number] [place] [address]- 7482 14 Nov, 2009 [facility] [place] [facility] [address] [id number] [place] [address]- 7345 14 Nov, 2009 [facility] [place] [facility] [address] [id number] [place] [address]- 7551 13 Oct, 2009 [facility] [place] [facility] [address] [id number] [place] [address]- 5785 17 Jul, 2009 [facility] [place] [facility] [address] [id number] [place] [address]- 5158 17 Jun, 2009 [facility] [place] [facility] [address] [id number] [address]- 6552 14 Jun, 2009 [facility] [place] [facility] [address] [id number] [place] [address]- 4978 17 Apr, 2009 [facility] [place] [facility] [address] [id number] [address]- 9872 Mar, [facility] [place] [facility] [address] [id number] [address]- 0236 Jan, [facility] [place] [facility] [address] [id number] [address]- 3457 Jan, [facility] [place] [facility] [address] [id number] [place] [address]- 1465 Dec, [facility] [place] [facility] [address] [id number] [address]- 0462 25 Dec, 2008 [facility] [place] [facility] [address] [id number] [address]- 0687 13 Dec, 2008 [facility] [place] [facility] [address] [facility] [id number] [place] [address]- 22[address] Dec, [facility] [address] [facility] [id number] [address] Nov, [facility] [address] [facility] [id number] [address] Jul, [facility] [address] [facility] [id number] [address] June, IMMUNIZATIONS No Known Immunizations SOCIAL HISTORY Never Assessed REASON FOR VISIT CControlled Medication Refill PLAN OF CARE VITAL SIGNS [...] tolerate CPAP Medical [facility] Medical History colonic polyps Medical History [...]
[2018-02-26 19:40] LABS: BASOPHILS % (AUTO) 0 % (0-10); EOSINOPHILS # (AUTO) 0.2 10^3/uL (0.0-0.3); EOSINOPHILS % (AUTO) 2 % (0-10); HEMATOCRIT 40 % (40-54); HEMOGLOBIN 14.1 G/DL (13.3-17.7); LYMPHOCYTES # (AUTO) 1.3 X 10^3 (1.0-4.0); LYMPHOCYTES % (AUTO) 18 % (12-44); MEAN CORPUSCULAR HEMOGLOBIN 33 PG (25-34); MEAN CORPUSCULAR HGB CONC 35 G/DL (32-36); MEAN CORPUSCULAR VOLUME 94 FL (80-99); MEAN PLATELET VOLUME 9.5 FL (7.4-10.4); MONOCYTES # (AUTO) 0.4 X 10^3 (0.0-1.0); MONOCYTES % (AUTO) 6 % (0-12); NEUTROPHILS # (AUTO) 5.3 X 10^3 (1.8-7.8); NEUTROPHILS % (AUTO) 74 % (42-75); PLATELET COUNT 212 10^3/uL (130-400); RED BLOOD COUNT 4.28 10^6/uL (4.35-5.85); RED CELL DISTRIBUTION WIDTH 12.5 % (10.0-14.5); WHITE BLOOD COUNT 7.2 10^3/uL (4.3-11.0)
--- OUTSIDE RECORDS SUMMARY | 2018-02-26 19:41 | XMS REPORT ---
Author Author CHRIS STEVENSON [facility] Address [address] [place] [address] Care Team Providers Care Liner Assembler Name Role Phone GRAHAMELLIOTT HANNAHANY Unavailable PROBLEMS Type Condition ICD9-CM Code GFX33-CM Code Onset Dates Condition Status SNOMED Code Problem Pulmonary asbestosis J61 Active 18865054 Problem Left ventricular diastolic dysfunction I51.9 Active 590344997 Problem Renal cyst, left N28.1 Active 31580021 Problem History of weight loss surgery Z98.84 Active 673518344 Problem Nocturnal hypoxia G47.34 Active 202515706 Problem Obstructive sleep apnea syndrome G47.33 Active 24030735 Problem Nephrolithiasis N20.0 Active 66041117 Problem Allergic rhinitis, unspecified allergic rhinitis type J30.9 Active 95384235 Problem 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 Active 65967879 Problem History of diverticulitis Z87.19 Active [id number] Problem Hammertoe of left foot M20.42 Active 284700568 Problem Erectile dysfunction due to diseases classified elsewhere N52.1 Active 405837831 Problem Anxiety F41.9 Active 26704462 Problem Psoriasis L40.9 Active 0190546 Problem Essential hypertension I10 Active 69343136 Problem Moderate episode of recurrent major depressive disorder F33.1 Active 042205613 Problem Chronic prescription opiate use Z79.899 Active 740089049 Problem Acute right-sided low back pain with right-sided sciatica M54.41 Active 154304066 Problem Benign prostatic hyperplasia, presence of lower urinary tract symptoms unspecified, unspecified morphology N40.0 Active 663587478 Problem Low back pain M54.5 Active 628265881 Problem Cervicalgia M54.2 Active 4298138247193 Problem Urge incontinence N39.41 Active 163190911 Problem Age-related osteoporosis without current pathological fracture M81.0 Active 62572317 Problem Esophageal stricture K22.2 Active 32126877 Problem Chronic gout, unspecified cause, unspecified site M1A.9XX0 Active 24637074 Problem Primary insomnia F51.01 Active 161986327 Problem Hyperlipidemia, unspecified E78.5 Active 37683854 ALLERGIES No Information ENCOUNTERS Encounter Location Date Diagnosis [facility] [id number] [place] [address] 93291- 4113 Mar, [facility] [id number] [place] [address] 29727- 4265 Jan, [facility] [id number] [place] [address] 02986- 8585 Dec, [facility] [id number] [place] [address] 31500- 5268 Dec, Anxiety F41.9 [facility] [id number] [place] [address] 92124- 9397 Dec, [facility] [address] 11311- 2286 Dec, Encounter for immunization Z23 [facility] [id number] [place] [address] 84293 -5396 Dec, [facility] [id number] [place] [address] 53733- 7902 Dec, Hammertoe of left foot M20.42 ; Edema of left foot R60.0 and Onychomycosis B35.1 [facility] [id number] [place] [address] 23427 -1333 Nov, BMI 50.0-59.9, adult Z68.43 [facility] [id number] [place] [address] 78842- 5078 Nov, [facility] [id number] [place] [address] 99085- 8017 Nov, [facility] [id number] [place] [address] 88265- 1001 Nov, Anxiety F41.9 [facility] [address] [place] [address]- 0445 Oct, [facility] [id number] [place] [address] 14181- 8530 Oct, [facility] [id number] [place] [address] 05930- 6283 Oct, BMI 45.0-49.9, adult Z68.42 ; Essential hypertension I10 ; Hyperlipidemia, unspecified E78.5 ; Anxiety F41.9 ; Obstructive sleep apnea syndrome G47.33 ; Moderate episode of recurrent major depressive disorder F33.1 ; Left ventricular diastolic dysfunction I51.9 ; Acute pain of right shoulder M25.511 ; Pain of left foot M79.672 and Pain in right foot M79.671 [facility] [id number] [place] [address] 20618- 4155 Oct, Anxiety F41.9 [facility] [id number] [place] [address] 03958 -3468 Sep, Left foot pain M79.672 [facility] [id number] [place] [address] 18429- 4442 Sep, [facility] [id number] [place] [address] 72394- 2543 Sep, Anxiety F41.9 [facility] [id number] [place] [address] 32893- 7809 Sep, [facility] [id number] [place] [address] 88594- 8080 Aug, [facility] [id number] [place] [address] 48386- 3474 Aug, [facility] [id number] [place] [address] 42412- 1000 Aug, Anxiety F41.9 [facility] [address] [address] 4335 Aug, [facility] [id number] [address]- 1416 Jul, [facility] [id number] [place] [address] 70335- 4158 Jul, Anxiety F41.9 [facility] [id number] [place] [address] 01524- 4886 June, Anxiety F41.9 [facility] [id number] [place] [address] 22372- 1193 June, [facility] [id number] [place] [address] 78328- 8877 June, Low back pain M54.5 ; Chronic prescription opiate use Z79.899 ; Candidal intertrigo B37.2 ; Urge incontinence N39.41 ; Essential hypertension I10 ; Moderate episode of recurrent major depressive disorder F33.1 ; Age-related osteoporosis without current pathological fracture M81.0 and BMI 45.0-49.9, adult Z68.42 [facility] [id number] [place] [address] 22256- 7458 June, [facility] [id number] [place] [address] 89015- 6141 May, Anxiety F41.9 [facility] [id number] [place] [address] 67690- 4521 May, [facility] [id number] [place] [address] 18584- 7538 May, [facility] [id number] [place] [address] 73174- 4527 Apr, Anxiety F41.9 [facility] [id number] [place] [address] 54800- 4909 Apr, [facility] [id number] [place] [address] 80290- 2795 Apr, Low back pain M54.5 [facility] [id number] [place] [address] 57804- 0674 Apr, [facility] [address] [address]- 4387 Apr, [facility] [id number] [place] [address] 409484- 8764 Apr, Anxiety F41.9 [facility] [id number] [place] [address] 31656- 6734 Apr, Right groin pain R10.31 [facility] [id number] [place] [address] 31702- 7719 Mar, [facility] [id number] [place] [address] 06937- 3956 Mar, [facility] [id number] [place] [address] 74682- 7135 Mar, Anxiety F41.9 [facility] [id number] [place] [address] 68494- 9953 Mar, Low back pain M54.5 [facility] [id number] [place] [address] 31592- 0768 Mar, Right groin pain R10.31 ; Low back pain M54.5 and BMI 45.0- 49.9, adult Z68.42 [facility] [address], [place] [address]- 0034 Mar, [facility] [address] [address]- 3618 Mar, [facility] [address], [place] [address]- 1454 Mar, [facility] [id number] [place] [address] 79414 -6061 Mar, [facility] [address], [place] [address] -3157 Mar, Cough R05 ; Pneumonia of right lower lobe due to infectious organism J18.1 and Abnormal chest x-ray R93.8 [facility] [id number] [place] [address] 17197- 2602 Mar, [facility] [id number] [place] [address] 26618- 7926 Mar, [facility] [id number] [place] [address] 68029- 5488 Jan, Anxiety F41.9 [facility] [id number] [place] [address] 85327- 0957 Jan, [facility] [id number] [place] [address] 58877- 3816 Jan, Moderate episode of recurrent major depressive disorder F33.1 [facility] [id number] [place] [address] 90269- 9658 Jan, Subacromial bursitis of right shoulder joint M75.51 ; Shortness of breath on exertion R06.02 and BMI 45.0-49.9, adult Z68.42 [facility] [id number] [place] [address] 76551- 2401 Dec, Anxiety F41.9 [facility] [id number] [place] [address] 93052- 8126 Dec, [facility] [id number] [place] [address] 86424- 9572 Dec, Low back pain M54.5 [facility] [id number] [place] [address] 36204- 3905 Oct, Low back pain M54.5 [facility] [id number] [place] [address] 91186- 3743 Sep, [facility] [id number] [place] [address] 88666- 8744 Sep, Erectile dysfunction due to diseases classified elsewhere N52.1 [facility] [address] [place] [address]- 2413 Sep, Erectile dysfunction due to diseases classified elsewhere N52.1 [facility] [id number] [place] [address] 52644- 8007 Sep, [facility] [id number] [place] [address] 38814- 0885 Sep, Erectile dysfunction due to diseases classified elsewhere N52.1 [facility] [id number] [place] [address] 67540- 8964 Sep, Low back pain M54.5 and Anxiety F41.9 [facility] [id number] [place] [address] 49357 -0558 Aug, Acute allergic rhinitis J30.9 [facility] [id number] [place] [address] 39973- 9281 Aug, [facility] [address] 27440- 8226 Aug, Anxiety F41.9 [facility] [id number] [place] [address] 20534- 2681 Jul, Low back pain M54.5 ; Chronic prescription opiate use Z79.899 and Essential hypertension I10 [facility] [id number] [place] [address] 52724- 5758 Jul, Anxiety F41.9 and Low back pain M54.5 [facility] [id number] [place] [address] 81136- 8321 June, [facility] [id number] [place] [address] 12230- 9994 June, Anxiety F41.9 [facility] [id number] [place] [address] 07449- 0928 May, Low back pain M54.5 [facility] [id number] [place] [address] 42890- 1913 May, [facility] [address], [place] [address]- 6664 12 May, 2016 Anxiety F41.9 [facility] [id number] [place] [address] 95150- 9942 28 Apr, 2016 [facility] [id number] [place] [address] 55178- 4908 Apr, Low back pain M54.5 [facility] [id number] [place] [address] 80596- 4286 17 Apr, 2016 Moderate episode of recurrent major depressive disorder F33.1 [facility] [id number] [place] [address] 12796- 8046 Apr, Anxiety F41.9 [facility] [id number] [place] [address] 33536- 8966 Apr, Low back pain M54.5 [facility] [id number] [place] [address] 87965- 8016 15 Apr, 2016 Elevated alkaline phosphatase level R74.8 [facility] [id number] [place] [address] 72048- 3184 10 Apr, 2016 Alkaline phosphatase elevation R74.8 [facility] [id number] [place] [address] 45103- 0756 06 Apr, 2016 Anxiety F41.9 [facility] [id number] [place] [address] 82355- 3226 03 Apr, 2016 Low back pain M54.5 [facility] [id number] [place] [address] 75405- 2031 03 Apr, 2017 History of weight loss surgery Z98.84 ; Encounter for hepatitis C screening test for low risk patient Z11.59 ; History of herpes genitalis Z86.19 ; Essential hypertension I10 ; Hyperlipidemia, unspecified E78.5 ; Exposure to STD Z20.2 and Benign prostatic hyperplasia, presence of lower urinary tract symptoms unspecified, unspecified morphology N40.0 [facility] [id number] [place] [address] 91737- 1550 Apr, [facility] [id number] [place] [address] 14789- 7989 Mar, [facility] [id number] [place] [address] 95050- 7172 Mar, [facility] [id number] [place] [address] 32059- 4064 Mar, [facility] [id number] [place] [address] 01389- 1940 Mar, Acute right-sided low back pain with right-sided sciatica M54.41 [facility] [id number] [place] [address] 76369- 8976 Mar, Low back pain M54.5 [facility] [id number] [place] [address] 63834 -3527 Mar, Muscle strain of chest wall, initial encounter S29.011A ; Muscle strain of right thigh, initial encounter S76.911A and Acute non- recurrent maxillary sinusitis J01.00 [facility] [id number] [place] [address] 76651- 6082 Mar, Benign prostatic hyperplasia, presence of lower urinary tract symptoms unspecified, unspecified morphology N40.0 [facility] [id number] [place] [address] 80765- 9381 Jan, Low back pain M54.5 [facility] [id number] [place] [address] 22114- 2806 13 Jan, 2016 Low back pain M54.5 ; Essential hypertension I10 ; Hyperlipidemia, unspecified E78.5 ; Anxiety F41.9 ; Moderate episode of recurrent major depressive disorder F33.1 ; Primary insomnia F51.01 ; Exposure to STD Z20.2 ; Encounter for hepatitis C screening test for low risk patient Z11.59 and History of herpes genitalis Z86.19 [facility] [id number] [place] [address] 99806- 3881 Dec, [facility] [id number] [place] [address] 83503- 8971 Nov, [facility] [id number] [place] [address] 73519- 5572 Nov, Anxiety F41.9 ; Cervicalgia M54.2 ; Moderate episode of recurrent major depressive disorder F33.1 and Encounter for immunization Z23 [facility] [id number] [place] [address] 78016- 8704 Oct, [facility] [id number] [place] [address] 29529- 0026 Oct, [facility] [id number] [place] [address] 78198- 4350 16 Nov, 2015 [facility] [id number] [place] [address] 49091- 8915 Oct, [facility] [id number] [place] [address] 23364- 9750 Sep, [facility] [id number] [place] [address] 77085- 7315 Aug, Low back pain M54.5 ; Anxiety F41.9 ; Primary insomnia F51.01 and Chronic prescription opiate use Z79.899 [facility] [id number] [place] [address] 97547- 0848 Jul, [facility] [id number] [place] [address] 31973- 5411 Jul, [facility] [id number] [place] [address] 56973- 4526 Jul, [facility] [id number] [place] [address] 43990- 0324 Jul, [facility] [id number] [place] [address] 21042- 7045 Jul, [facility] [address], [place] [address]- 1608 June, [facility] [id number] [place] [address] 14027- 3179 June, [facility] [id number], [place] [address]- 4166 June, [facility] [id number] [place] [address] 50928- 6854 June, [facility] [id number] [place] [address] 24485- 3015 May, Preoperative cardiovascular examination Z01.810 [facility] [id number] [place] [address] 31019- 1975 May, [facility] [id number] [place] [address] 58745- 2240 Apr, [facility] [id number] [place] [address] 80712- 5965 Apr, Osteoarthritis of right knee M17.9 [facility] [id number], [place] [address]- 5557 Apr, [facility] [id number] [place] [address] 36592- 9791 Apr, [facility] [address], [place] [address]- 8454 Apr, [facility] [address], [place] [address]- 5140 Apr, [facility] [address], [place] [address]- 9248 Apr, History of excessive cerumen Z78.9 ; Obstructive sleep apnea syndrome G47.33 ; History of diverticulitis Z87.19 and Nephrolithiasis N20.0 [facility] [address], [place] [address]- 1557 Apr, [facility] [address], [place] [address] -8112 23 Apr, 2015 Abdominal pain R10.9 [facility] [id number] [place] [address] 65553- 0376 10 Apr, 2015 [facility] [id number] [place] [address] 19553- 8585 04 Apr, 2015 Osteoarthritis of right knee M17.9 [facility] [id number] [place] [address] 10790- 5572 Mar, [facility] [id number] [place] [address] 46710- 7193 Mar, [facility] [id number] [place] [address] 74296- 7000 14 Mar, 2015 [facility] [id number] [place] [address] 29503- 3426 Mar, [facility] [id number] [place] [address] 69041 -2665 13 Mar, 2015 Pyelonephritis N12 ; Left-sided thoracic back pain M54.6 ; Hematuria, unspecified R31.9 and Kidney stone N20.0 [facility] [id number] [place] [address] 54219- 6965 Mar, History of weight loss surgery Z98.84 [facility] [id number] [place] [address] 79598- 1533 Mar, History of weight loss surgery Z98.84 and Hyperlipidemia, unspecified E78.5 [facility] [id number] [place] [address] 62932- 8810 Mar, Low back pain M54.5 ; Chronic prescription opiate use Z79.899 ; Hyperlipidemia, unspecified E78.5 ; Spasm of back muscles M62.830 and History of weight loss surgery Z98.84 [facility] [id number] [place] [address] 22041- 4504 Jan, [facility] [address]- 5307 Jan, [facility] [id number] [place] [address] 604292- 1184 Jan, [facility] [id number] 1423 Dec, [facility] [id number] [place] [address] 06225- 6838 Dec, [facility] [id number] [place] [address] [phone] Dec, [facility] [id number] [place] [address] [phone] Nov, [facility] [id number] [place] [address] [phone] Nov, Obstructive sleep apnea syndrome G47.33 and Pharyngoesophageal dysphagia R13.14 [facility] [id number] [address] Nov, [facility] [id number] [place] [address] [phone] Nov, [facility] [id number] [address] Nov, [facility] [id number] [place] [address] [id number] 30 Oct, 2014 Dental examination V72.2 [facility] [id number] [address] Oct, [facility] [id number] [place] [address] [phone] Oct, [facility] [id number] [address] 23 Oct, 2014 [facility] [id number] [place] [address] [phone]- [phone] Oct, [facility] [id number] [place] [address] [phone] Oct, BPH (benign prostatic hyperplasia) 600.00 and Urinary frequency 788.41 [facility] [id number] [place] [address] [phone] Oct, [facility] [id number] [place] [address] [id number] Oct, [facility] [id number] [place] [address] [phone] Oct, [facility] [address] 233003- 0495 Sep, Cerumen impaction 380.4 ; Cerumen debris on tympanic membrane 380.4 ; Psoriasis 696.1 and MICKY (secretory otitis media) 381.4 [facility] [id number] [place] [address] [id number] Sep, Dental examination V72.2 [facility] [id number] [place] [address] [phone]- [phone] Sep, Fatigue 780.79 ; Irritable bowel syndrome 564.1 ; Overweight 278.02 ; Poor sleep V69.4 ; Shaking spells 781.0 and Broken tooth 873.63 [facility] [id number], [place] [address] 85[address] Sep, [facility] [id number] [place] [address] [id number] Sep, [facility] [address] [id number] [place] [address]224- 7822 Aug, [facility] [id number] [place] [address] 43[address]- 2967 Jul, [facility] [id number] [place] [address] 492443- 2129 Jul, [facility] [address] [id number] [place] [address] 3[address] Jul, [facility] [address] [id number] [place] [address] 0393 Jul, [facility] [id number] [place] [address] 6[address] June, Arthritis of knee, right 716.96 [facility] [id number] [place] [address] 2002 June, [facility] [address] [facility] [id number] [place] [address] June, Elevated blood pressure reading without diagnosis of hypertension 796.2 [facility] [id number] [place] [address] 5458 June, [facility] [id number] [address] 8[address] June, [facility] [address] [id number] [address] 5898 June, [facility] [address] [id number] [place] [address]- 0437 June, [facility] [id number] [place] [address] 8654 May, [facility] [address] [id number] [address] 3020 May, [facility] [address] [id number] [address] 0320 Apr, [facility] [address] [id number] [place] [address]- 6459 Apr, [facility] [address] [id number] [place] [address]- 9301 Apr, [facility] [address] [id number] [place] [address]- 0792 Apr, [facility] [address] [facility] [id number] [place] [address]- 3685 20 Apr, 2014 [facility] [place] [facility] [address] [id number] [place] [address]- 7424 Apr, 2014 [facility] [place] [facility] [address] [id number] [place] [address]- 7656 Apr, 2014 [facility] [place] [facility] [address] [id number] [place] [address]- 6382 13 Apr, 2014 [facility] [place] [facility] [address] [id number] [place] [address]- 4409 Apr, 2014 [facility] [place] [facility] [address] [id number] [place] [address]- 9921 Apr, 2014 [facility] [place] [facility] [address] [facility] [id number] [place] [address]- 6244 Apr, 2014 [facility] [place] [facility] [address] [facility] [id number] [place] [address]- 8891 Apr, 2014 [facility] [place] [facility] [address] [facility] [id number] [place] [address]- 4767 24 Apr, 2014 [facility] [place] [facility] [address] [facility] [id number] [place] [address]- 4001 24 Apr, 2014 [facility] [place] [facility] [address] [facility] [id number] [place] [address]- 8413 23 Apr, 2014 [facility] [place] [facility] [address] [facility] [id number] [place] [address]- 5459 23 Apr, 2014 [facility] [place] [facility] [address] [facility] [id number] [place] [address]- 2758 20 Apr, 2014 [facility] [place] [facility] [address] [facility] [id number] [place] [address]- 4393 20 Apr, 2014 [facility] [place] [facility] [address] [facility] [id number] [place] [address]- 8657 18 Apr, 2014 [facility] [place] [facility] [address] [facility] [id number] [place] [address]- 0712 18 Apr, 2014 [facility] [place] [facility] [address] [id number] [place] [address]- 0956 Apr, 2014 [facility] [place] [facility] [address] [id number] [place] [address] 2546 Apr, 2014 [facility] [place] [facility] [address] [facility] [id number] [place] [address]- 9086 Apr, 2014 [facility] [place] [facility] [address] [id number] [place] [address]- 6965 Apr, 2014 [facility] [place] [facility] [address] [id number] [place] [address]- 2292 Apr, 2014 [facility] [place] [facility] [address] [facility] [id number] [place] [address]- 9174 Apr, 2014 [facility] [place] [facility] [address] [facility] [id number] [place] [address]- 5690 Apr, 2014 [facility] [place] [facility] [address] [facility] [id number] [place] [address]- 2547 Apr, 2014 [facility] [place] [facility] [address] [facility] [id number] [place] [address]- 2902 Apr, 2014 [facility] [place] [facility] [address] [facility] [id number] [place] [address]- 0160 Apr, 2014 [facility] [place] [facility] [address] [facility] [id number] [place] [address] 2546 Apr, 2014 [facility] [place] [facility] [address] [facility] [id number] [place] [address]- 2547 Apr, 2014 [facility] [place] [facility] [address] [facility] [id number] [place] [address]- 9488 Apr, 2014 [facility] [place] [facility] [address] [facility] [id number] [place] [address]- 3268 Mar, [facility] [place] [facility] [address] [facility] [id number] [place] [address]- 8890 Mar, [facility] [place] [facility] [address] [id number] [place] [address]- 7435 Mar, [facility] [place] [facility] [address] [id number] [place] [address]- 9663 Mar, [facility] [place] [facility] [address] [id number] [place] [address]- 2373 Mar, [facility] [place] [facility] [address] [id number] [place] [address]- 6870 Mar, [facility] [place] [facility] [address] [id number] [place] [address]- 9937 Mar, [facility] [place] [facility] [address] [id number] [place] [address]- 7158 Mar, [facility] [place] [facility] [address] [id number] [place] [address]- 9829 Mar, [facility] [place] [facility] [address] [id number] [place] [address]- 0503 Mar, [facility] [place] [facility] [address] [id number] [place] [address]- 3850 Jan, [facility] [place] [facility] [address] [id number] [place] [address]- 3029 Jan, [facility] [place] [facility] [address] [id number] [place] [address]- 9847 Jan, [facility] [place] [facility] [address] [id number] [place] [address]- 8142 Jan, [facility] [place] [facility] [address] [id number] [place] [address]- 1898 Jan, [facility] [place] [facility] [address] [id number] [place] 9409 Jan, [facility] [place] [facility] [address] [id number] [place] [address]- 2340 Jan, [facility] [place] [facility] [address] [id number] [place] [address]- 0922 05 Jan, 2014 [facility] [place] [facility] [address] [id number] [place] [address]- 4879 05 Jan, 2014 [facility] [place] [facility] [address] [id number] [place] [address]- 8945 Jan, [facility] [place] [facility] [address] [id number] [place] [address]- 8424 Jan, [facility] [place] [facility] [address] [id number] [place] [address]- 0996 Jan, [facility] [place] [facility] [address] [id number] [place] [address]- 5736 Dec, [facility] [place] [facility] [address] [id number] [place] [address]- 4599 Dec, [facility] [place] [facility] [address] [id number] [place] [address]- 1160 Dec, [facility] [place] [facility] [address] [id number] [place] [address]- 0868 Dec, [facility] [place] [facility] [address] [id number] [place] [address]- 1727 Dec, [facility] [place] [facility] [address] [id number] [place] [address]- 7856 Dec, [facility] [place] [facility] [address] [id number] [place] [address]- 1572 Dec, [facility] [place] [facility] [address] [id number] [address]- 7830 Dec, [facility] [place] [facility] [address] [id number], [place] [address]- 7262 Dec, [facility] [place] [facility] [address] [id number] [place] [address]- 5598 Dec, [facility] [place] [facility] [address] [id number], [place] [address]- 1855 Nov, [facility] [place] [facility] [address] [id number] [place] [address]- 8051 31 Nov, 2013 [facility] [place] [facility] [address] [id number] [place] [address]- 0900 27 Nov, 2013 [facility] [place] [facility] [address] [id number] [place] [address]- 0582 Nov, 2013 [facility] [place] [facility] [address] [id number] [place] [address]- 1059 Nov, [facility] [place] [facility] [address] [id number] [place] [address]- 4829 Nov, [facility] [place] [facility] [address] [id number] [place] [address]- 1856 Nov, [facility] [place] [facility] [address] [id number] [place] [address]- 0841 Nov, [facility] [place] [facility] [address] [id number] [place] [address]- 9918 Nov, [facility] [place] [facility] [address] [id number] [place] [address]- 0562 24 Nov, 2013 [facility] [place] [facility] [address] [id number] [place] [address]- 2005 Nov, [facility] [place] [facility] [address] [id number] [place] [address]- 5687 17 Nov, 2013 [facility] [place] [facility] [address] [id number] [place] [address]- 1165 14 Nov, 2013 [facility] [place] [facility] [address] [id number] [place] [address]- 7667 14 Nov, 2013 [facility] [place] [facility] [address] [id number] [place] [address]- 2518 10 Nov, 2013 [facility] [place] [facility] [address] [id number] [place] [address]- 4743 10 Nov, 2013 [facility] [place] [facility] [address] [id number] [place] [address]- 4559 08 Nov, 2013 [facility] [place] [facility] [address] [id number] [place] [address]- 8908 08 Nov, 2013 [facility] [place] [facility] [address] [id number] [place] [address]- 8680 Nov, [facility] [place] [facility] [address] [id number] [place] [address]- 2219 Nov, [facility] [place] [facility] [address] [id number] [place] [address]- 0925 Oct, 2013 [facility] [place] [facility] [address] [id number] [place] [address]- 1869 Oct, [facility] [place] [facility] [address] [id number] [place] [address]- 9195 Oct, [facility] [place] [facility] [address] [id number] [place] [address]- 1565 Oct, [facility] [place] [facility] [address] [id number] [place] [address]- 8319 Oct, [facility] [place] [facility] [address] [id number] [place] [address]- 5082 Oct, [facility] [place] [facility] [address] [id number] [place] [address]- 0036 Oct, [facility] [place] [facility] [address] [id number], [place] [address]- 2817 Oct, [facility] [place] [facility] [address] [id number], [place] [address]- 0507 Oct, [facility] [place] [facility] [address] [id number] [place] [address]- 2543 Oct, [facility] [place] [facility] [address] [id number], [place] [address]- 5738 Sep, [facility] [place] [facility] [address] [id number] [place] [address]- 0629 Sep, [facility] [place] [facility] [address] [id number] [place] [address]- 8329 Sep, [facility] [place] [facility] [address] [id number] [facility] [place] [address]- 1321 Sep, [facility] [place] [facility] [address] [id number] [place] [address]- 2447 Sep, [facility] [place] [facility] [address] [id number] [place] [address]- 5691 Sep, [facility] [place] [facility] [address] [id number] [place] [address]- 1876 Sep, [facility] [place] [facility] [address] [id number] [place] [address]- 1551 Sep, [facility] [place] [facility] [address] [id number] [place] [address]- 8876 Sep, [facility] [place] [facility] [address] [id number] [place] [address]- 8533 Sep, [facility] [place] [facility] [address] [id number] [place] [address]- 3187 Sep, [facility] [place] [facility] [address] [id number] [place] [address]- 4449 Sep, [facility] [place] [facility] [address] [id number] [place] [address]- 5989 Sep, [facility] [place] [facility] [address] [id number] [place] [address]- 5599 Sep, [facility] [place] [facility] [address] [id number] [place] [address]- 2119 Sep, [facility] [place] [facility] [address] [id number] [place] [address]- 0316 Sep, [facility] [place] [facility] [address] [id number] [place] [address]- 5007 Sep, [facility] [place] [facility] [address] [id number] [place] [address]- 1700 Sep, [facility] [place] [facility] [address] [id number] [place] [address]- 1762 Sep, [facility] [place] [facility] [address] [id number] [place] [address]- 8114 Sep, [facility] [place] [facility] [address] [id number] [place] [address]- 1961 Sep, [facility] [place] [facility] [address] [id number] [place] [address]- 6049 Sep, [facility] [place] [facility] [address] [id number] [place] [address]- 0394 Sep, [facility] [place] [facility] [address] [id number] [place] [address]- 9627 Sep, [facility] [place] [facility] [address] [id number] [place] [address]- 0544 Sep, [facility] [place] [facility] [address] [id number] [place] [address]- 4892 Aug, [facility] [place] [facility] [address] [id number] [place] [address]- 5574 Aug, [facility] [place] [facility] [address] [id number] [place] [address]- 5831 Aug, [facility] [place] [facility] [address] [id number] [place] [address]- 8435 Aug, [facility] [place] [facility] [address] [id number] [place] [address]- 1267 Aug, [facility] [place] [facility] [address] [id number] [place] [address]- 3270 Aug, [facility] [place] [facility] [address] [id number] [place] [address]- 6634 Aug, [facility] [place] [facility] [address] [id number] [place] [address]- 4188 Aug, [facility] [place] [facility] [address] [id number] [place] [address]- 8439 Aug, [facility] [place] [facility] [address] [id number] [place] [address]- 8235 Aug, [facility] [place] [facility] [address] [id number] [place] [address]- 5553 Aug, [facility] [place] [facility] [address] [id number] [place] [address]- 9981 Aug, [facility] [place] [facility] [address] [id number] [place] [address]- 5653 Aug, [facility] [place] [facility] [address] [id number] [place] [address]- 6079 Jul, [facility] [place] [facility] [address] [id number] [place] [address]- 7748 Jul, [facility] [place] [facility] [address] [id number] [place] [address]- 4539 Jul, [facility] [place] [facility] [address] [id number] [place] [address]- 4449 Jul, [facility] [place] [facility] [address] [id number] [place] [address]- 3510 Jul, [facility] [place] [facility] [address] [id number] [place] [address]- 6481 Jul, [facility] [place] [facility] [address] [id number] [place] [address]- 2253 Jul, [facility] [place] [facility] [address] [id number] [place] [address]- 2508 June, [facility] [place] [facility] [address] [id number] [place] [address]- 8887 June, [facility] [place] [facility] [address] [id number] [place] [address]- 2336 June, [facility] [place] [facility] [address] [id number] [place] [address]- 3341 June, [facility] [place] [facility] [address] [id number] [place] [address]- 6831 May, [facility] [address] [id number] [place] [address]- 9414 May, [facility] [place] [facility] [address] [id number] [place] [address]- 6934 May, [facility] [place] [facility] [address] [id number] [place] [address]- 5377 May, [facility] [place] [facility] [address] [id number] [place] [address]- 8782 May, [facility] [place] [facility] [address] [id number] [place] [address]- 6835 May, [facility] [place] [facility] [address] [id number] [place] [address]- 7838 May, [facility] [place] [facility] [address] [id number] [place] [address]- 8374 May, [facility] [address] [id number] [place] [address]- 5703 May, [facility] [place] [facility] [address] [id number] [place] [address]- 4064 May, [facility] [place] [facility] [address] [id number] [place] [address]- 2968 Apr, [facility] [place] [facility] [address] [id number] [place] [address]- 1725 Apr, [facility] [place] [facility] [address] [id number] [place] [address]- 8210 Apr, [facility] [place] [facility] [address] [id number] [place] [address]- 9675 Apr, [facility] [place] [facility] [address] [id number] [place] [address]- 6326 Apr, [facility] [place] [facility] [address] [id number] [place] [address]- 8175 Apr, [facility] [place] [facility] [address] [id number] [place] [address]- 7465 Apr, [facility] [place] [facility] [address] [id number] [place] 9136 Apr, [facility] [place] [facility] [address] [id number] [place] 4076 Apr, [facility] [place] [facility] [address] [id number] [place] [address]- 3310 Apr, [facility] [place] [facility] [address] [id number] [place] [address]- 8131 Mar, [facility] [place] [facility] [address] [id number] [place] [address]- 7642 Mar, [facility] [place] [facility] [address] [id number] [place] [address]- 1743 Mar, [facility] [place] [facility] [address] [id number] [place] [address]- 0354 Mar, [facility] [place] [facility] [address] [id number] [place] [address]- 0166 Mar, [facility] [place] [facility] [address] [id number] [place] [address]- 9441 Mar, [facility] [place] [facility] [address] [id number] [place] [address]- 7703 Jan, [facility] [place] [facility] [address] [id number] [place] [address]- 3969 Jan, [facility] [place] [facility] [address] [id number] [place] [address] Jan, [facility] [place] [facility] [address] [id number] [place] [address] Jan, [facility] [place] [facility] [address] [id number] [place] [address] Jan, [facility] [place] [facility] [address] [id number] [place] [address] Jan, [facility] [address] [id number] [place] [address] Jan, [facility] [address] [id number] [place] [address] Jan, [facility] [address] [id number] [place] [address] Jan, [facility] [address] [id number] [place] [address] Dec, [facility] [address] [id number] [place] [address] Dec, [facility] [address] [id number] [place] [address] Dec, [facility] [address] [id number] [place] [address] Dec, [facility] [address] [id number] [place] [address] Dec, [facility] [address] [id number] [place] [address] Dec, [facility] [address] [facility] [id number] [place] [address] Dec, [facility] [address] [id number] [place] [address]293 Dec, [facility] [address] [id number], [place] [address] Dec, [facility] [place] [facility] [address] [id number] [place] [address] 05 Dec, 2012 [facility] [place] [facility] [address] [facility] [id number] [place] [address]- [address] Dec, [facility] [address] [id number] [place] [address] Nov, [facility] [place] [facility] [address] [id number] [place] [address] Nov, [facility] [place] [facility] [address] [id number] [place] [address] Nov, [facility] [place] [facility] [address] [id number] [place] [address] Nov, [facility] [place] [facility] [address] [id number] [place] [address] 4670 Nov, [facility] [place] [facility] [address] [id number] [place] [address] Oct, [facility] [place] [facility] [address] [id number] [place] [address] Oct, [facility] [place] [facility] [address] [id number] [place] [address] Sep, [facility] [place] [facility] [address] [id number] [place] [address] Aug, [facility] [place] [facility] [address] [id number] [place] [address] Aug, [facility] [place] [facility] [address] [id number], [place] [address] Aug, [facility] [place] [facility] [address] [id number] [place] [address] Aug, [facility] [place] [facility] [address] [id number], [place] [address] Jul, [facility] [place] [facility] [address] [id number] [place] [address]32 Jul, [facility] [place] [facility] [address] [id number] [place] [address] 17[address] June, [facility] [place] [facility] [address] [id number], [place] [address] June, [facility] [place] [facility] [address] [id number], [place] [address] June, [facility] [address] [id number] [place] [address] 08 May, 2012 [facility] [place] [facility] [address] [facility] [id number] [place] [address] 04 May, 2012 [facility] [address] [id number] [place] [address] May, [facility] [address] [facility] [id number] [place] [address] 18 Apr, 2012 [facility] [address] [id number] [place] [address]792 18 Apr, 2012 [facility] [address] [id number] [place] [address]32 15 Apr, 2012 [facility] [id number] [place] [address] 14 Apr, 2012 [facility] [address] [id number] [place] [address]- [address]44 Apr, [facility] [id number] [place] [address]73 27 Apr, 2012 [facility] [id number] [place] [address]- [address] Apr, [facility] [place] [facility] [id number] [place] [address] Apr, [facility] [place] [facility] [address] [id number], [place] [address] Apr, [facility] [place] [facility] [address] [facility] [id number] [place] [address]- 2271 20 Apr, 2012 [facility] [place] [facility] [address] [facility] [id number], [place] [address]- 8526 19 Apr, 2012 [facility] [place] [facility] [id number] [address] 07 Apr, 2012 [facility] [address] [id number] [place] [address]- 8484 07 Apr, 2012 [facility] [place] [facility] [address] [id number] [place] [address]- [address]296 Mar, [facility] [place] [facility] [address] [id number] [place] [address]- 0105 23 Mar, 2012 [facility] [place] [facility] [address] [id number] [place] [address]- 4580 16 Mar, 2012 [facility] [place] [facility] [address] [id number] [place] [address] 1862 Mar, [facility] [place] [facility] [address] [id number] [place] [address]- 7179 Mar, [facility] [place] [facility] [address] [id number] [place] [address]- 6416 Jan, [facility] [place] [facility] [address] [id number] [place] [address]- 7399 28 Jan, 2012 [facility] [place] [facility] [address] [id number] [place] [address]- 4202 22 Jan, 2012 [facility] [place] [facility] [address] [id number] [place] [address]- 5164 22 Jan, 2012 [facility] [place] [facility] [address] [id number] [place] [address]- 1140 14 Jan, 2012 [facility] [place] [facility] [address] [id number], [place] [address]- 7528 13 Jan, 2012 [facility] [place] [facility] [address] [id number] [place] [address] 2544 13 Jan, 2012 [facility] [place] [facility] [address] [id number] [place] [address]- 6696 11 Jan, 2012 [facility] [place] [facility] [address] [id number] [place] [place] [address] 06 Jan, 2012 [facility] [place] [facility] [address] [id number], [place] [address] 06 Jan, 2012 [facility] [place] [facility] [address] [id number] [place] [address] 79[address] 04 Jan, 2012 [facility] [place] [facility] [address] [id number], [place] [address] 04 Jan, 2012 [facility] [place] [facility] [address] [facility] [id number] [place] [address] 04 Jan, 2012 [facility] [place] [facility] [address] [id number] [place] [address] 9583 04 Jan, 2012 [facility] [place] [facility] [address] [facility] [id number] [place] [address] 26 Jan, 2012 [facility] [place] [facility] [address] [id number] [place] [address] 7927 26 Jan, 2012 [facility] [place] [facility] [id number], [place] [address] 19 Jan, 2012 [facility] [place] [facility] [address] [id number], [place] [address] 1644 19 Jan, 2012 [facility] [place] [facility] [address] [id number], [place] [address] 15 Jan, 2012 [facility] [place] [facility] [address] [id number], [place] [address] 15 Jan, 2012 [facility] [place] [facility] [address] [facility] [id number], [place] [address] 14 Jan, 2012 [facility] [place] [facility] [address] [id number], [place] [address] 4973 14 Jan, 2012 [facility] [place] [facility] [address] [id number], [place] [address] 4[address] 14 Jan, 2012 [facility] [place] [facility] [address] [facility] [id number], [place] [address] 1263 14 Jan, 2012 [facility] [place] [facility] [address] [id number], [place] [address] 07 Jan, 2012 [facility] [place] [facility] [address] [id number] [place] [address] 2546 Dec, [facility] [place] [facility] [address] [id number] [place] [address]- 8626 16 Dec, 2011 [facility] [place] [facility] [address] [id number] [place] [address]- 2546 16 Dec, 2011 [facility] [place] [facility] [address] [id number] [place] [address]- 0716 13 Nov, 2011 [facility] [place] [facility] [address] [id number] [place] [address]- 1306 13 Nov, 2011 [facility] [place] [facility] [address] [id number] [place] [address]- 3696 13 Nov, 2011 [facility] [place] [facility] [address] [id number] [place] [address]- 0406 12 Nov, 2011 [facility] [place] [facility] [address] [id number] [place] [address] 3448 Sep, [facility] [place] [facility] [address] [id number] [place] [address] 5670 Sep, [facility] [place] [facility] [address] [id number] [place] [address]- 7883 Aug, [facility] [place] [facility] [address] [id number] [place] [address] 0346 Aug, [facility] [place] [facility] [address] [id number] [place] [address]- 2425 Aug, [facility] [place] [facility] [address] [id number] [place] [address]- 3482 Aug, [facility] [place] [facility] [address] [id number] [place] [address] 2356 June, [facility] [place] [facility] [address] [id number] [place] [address]- 2546 June, [facility] [place] [facility] [address] [id number] [place] [address]- 0625 May, [facility] [address] [id number] [place] [address]- 6537 Apr, [facility] [place] [facility] [address] [id number] [place] [address]- 9509 Apr, [facility] [place] [facility] [address] [id number] [place] [address]- 0903 Apr, [facility] [place] [facility] [address] [id number] [place] [address]- 4195 Apr, [facility] [place] [facility] [address] [id number] [place] [address]- 8350 Apr, [facility] [place] [facility] [address] [id number] [place] [address]- 1391 Apr, [facility] [place] [facility] [address] [id number] [place] [address]- 2468 Mar, [facility] [place] [facility] [address] [id number] [place] [address]- 9360 Mar, [facility] [place] [facility] [address] [id number] [place] [address]- 7548 Mar, [facility] [place] [facility] [address] [id number] [place] [address]- 0709 Jan, [facility] [place] [facility] [address] [id number] [place] [address] 1986 Jan, [facility] [place] [facility] [address] [id number] [place] [address]- 0271 Jan, [facility] [place] [facility] [address] [id number] [place] [address]- 2506 Jan, [facility] [place] [facility] [address] [id number] [place] [address]- 3335 Jan, [facility] [place] [facility] [address] [id number] [place] [address]- 5066 Jan, [facility] [place] [facility] [address] [id number] [place] [address]- 1819 12 Jan, 2011 [facility] [address] [id number] [place] [address]- 2971 Dec, [facility] [place] [facility] [address] [id number] [place] [address] Dec, [facility] [address] [id number] [place] [address]- 8236 Nov, [facility] [place] [facility] [address] [id number] [place] [address]- 7833 Nov, [facility] [address] [id number] [place] [address]- 7215 Nov, [facility] [place] [facility] [address] [id number] [place] [address]- 4947 Nov, [facility] [place] [facility] [address] [id number] [place] [address]- 3926 Oct, [facility] [place] [facility] [address] [id number] [place] [address]- 7271 Sep, [facility] [place] [facility] [address] [id number] [place] [address]- 8736 Mar, [facility] [place] [facility] [address] [id number] [place] [address]- 8157 Jan, [facility] [place] [facility] [address] [id number] [place] [address]- 5434 Dec, [facility] [place] [facility] [address] [id number] [place] [address]- 6626 Dec, [facility] [place] [facility] [address] [id number] [place] [address]- 7768 Dec, [facility] [place] [facility] [address] [id number] [place] [address]- 3920 Dec, [facility] [place] [facility] [address] [id number] [place] [address]- 7999 Nov, [facility] [place] [facility] [address] [id number] [place] [address]- 2325 15 Nov, 2009 [facility] [place] [facility] [address] [id number] [place] [address]- 8901 14 Nov, 2009 [facility] [place] [facility] [address] [id number] [place] [address]- 9096 14 Nov, 2009 [facility] [place] [facility] [address] [id number] [place] [address]- 4682 13 Oct, 2009 [facility] [address] [id number] [place] [address]- 3291 17 Jul, 2009 [facility] [place] [facility] [address] [id number] [place] [address]- 2966 17 Jun, 2009 [facility] [address] [facility] [id number] [place] [address]- 5421 June, [facility] [address] [id number], [place] [address]- 8988 17 Apr, 2009 [facility] [place] [facility] [address] [id number] [place] [address]- 2939 Mar, [facility] [place] [facility] [address] [id number], [place] [address]- 5555 24 Jan, 2009 [facility] [place] [facility] [address] [id number], [place] [address]- 0863 Jan, [facility] [place] [facility] [address] [id number], [place] [address]- 4337 27 Dec, 2008 [facility] [place] [facility] [address] [id number], [place] [address]- 7638 25 Dec, 2008 [facility] [place] [facility] [address] [id number], [place] [address]- 5776 13 Dec, 2008 [facility] [place] [facility] [address] [id number], [place] [address]- 3136 13 Dec, 2008 [facility] [place] [facility] [address] [id number], [place] [address]- 6464 Nov, [facility] [address] [facility] [id number] [place] [address]- 2476 Jul, [facility] [address] [facility] [id number] [place] [address] June, IMMUNIZATIONS No Known Immunizations SOCIAL HISTORY [...] tolerate CPAP Medical History oxygen dependent at [facility] Medical History colonic polyps Medical [...] colonoscopy ([place])-polyp removed 10/2009 Surgical History EGD ([place])-gastritis 10/2009 Surgical History gastric sleeve Surgical History [...]
--- OUTSIDE RECORDS SUMMARY | 2018-02-26 19:42 | XMS REPORT ---
Author Author ARNULFO SEGOVIA Organization [facility] Address [address] [place] [address] Care Team Providers Care Med Specialist Name Role Phone ARNULFO SEGOVIA Unavailable PROBLEMS Type Condition ICD9-CM Code SUP84-KJ Code Onset Dates Condition Status SNOMED Code Problem Pulmonary asbestosis J61 Active 90492822 Problem Left ventricular diastolic dysfunction I51.9 Active 963999143 Problem Renal cyst, left N28.1 Active 03666498 Problem History of weight loss surgery Z98.84 Active 059485233 Problem Nocturnal hypoxia G47.34 Active 871235801 Problem Obstructive sleep apnea syndrome G47.33 Active 96449896 Problem Nephrolithiasis N20.0 Active 65153500 Problem Allergic rhinitis, unspecified allergic rhinitis type J30.9 Active 36238675 Problem 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 Active 80228250 Problem History of diverticulitis Z87.19 Active 305743011232468 Problem Hammertoe of left foot M20.42 Active 586577049 Problem Erectile dysfunction due to diseases classified elsewhere N52.1 Active 177921668 Problem Anxiety F41.9 Active 85015493 Problem Psoriasis L40.9 Active 6837744 Problem Essential hypertension I10 Active 63736650 Problem Moderate episode of recurrent major depressive disorder F33.1 Active 303908899 Problem Chronic prescription opiate use Z79.899 Active 734447031 Problem Acute right-sided low back pain with right-sided sciatica M54.41 Active 378526050 Problem Benign prostatic hyperplasia, presence of lower urinary tract symptoms unspecified, unspecified morphology N40.0 Active 358769386 Problem Low back pain M54.5 Active 051938374 Problem Cervicalgia M54.2 Active 9570256522162 Problem Urge incontinence N39.41 Active 988140111 Problem Age-related osteoporosis without current pathological fracture M81.0 Active 33306503 Problem Esophageal stricture K22.2 Active 45711008 Problem Chronic gout, unspecified cause, unspecified site M1A.9XX0 Active 57340968 Problem Primary insomnia F51.01 Active 802766000 Problem Hyperlipidemia, unspecified E78.5 Active 30187892 ALLERGIES No Information ENCOUNTERS Encounter Location Date Diagnosis [facility] [id number] [place] [address] 63371- 7440 Mar, [facility] [id number] [place] [address] 82974- 0151 Jan, [facility] [address] 04368- 4173 Dec, Anxiety F41.9 [place] [address] 63779- 0127 Dec, [place] [address] 40494- 4857 Dec, Encounter for immunization Z23 [facility] [address] 52361 -6372 Dec, [facility] [address] 33914- 6590 Dec, Hammertoe of left foot M20.42 ; Edema of left foot R60.0 and Onychomycosis B35.1 [facility] [id number] [place] [address] 52292 -9935 Nov, BMI 50.0-59.9, adult Z68.43 [facility] [id number] [place] [address] 83934- 6199 Nov, [facility] [id number] [place] [address] 24632- 5159 Nov, [facility] [address] 50843- 3058 Nov, Anxiety F41.9 [facility] [id number] [place] [address] 02772- 8032 Oct, [facility] [address] [place] [address]- 0206 Oct, [facility] [id number] [place] [address] 70489- 8191 Oct, BMI 45.0-49.9, adult Z68.42 ; Essential hypertension I10 ; Hyperlipidemia, unspecified E78.5 ; Anxiety F41.9 ; Obstructive sleep apnea syndrome G47.33 ; Moderate episode of recurrent major depressive disorder F33.1 ; Left ventricular diastolic dysfunction I51.9 ; Acute pain of right shoulder M25.511 ; Pain of left foot M79.672 and Pain in right foot M79.671 [facility] [id number] [place] [address] 71862- 2627 Oct, Anxiety F41.9 [facility] [id number] [place] [address] 33457 -5191 Sep, Left foot pain M79.672 [facility] [address] 08171- 2772 Sep, [facility] [id number] [place] [address] 02937- 6532 Sep, Anxiety F41.9 [facility] [id number] [place] [address] 42885- 2260 Sep, [facility] [id number] [place] [address] 62103- 0591 Aug, [facility] [id number] [place] [address] 11336- 4835 Aug, [facility] [id number] [place] [address] 14642- 1324 Aug, Anxiety F41.9 [facility] [address] 27137- 8273 Aug, [facility] [id number] [place] [address] 67207- 6091 Jul, [facility] [address] [place] [address]- 4939 Jul, Anxiety F41.9 [facility] [address] 00889- 7664 June, Anxiety F41.9 [facility] [id number] [place] [address] 57647- 4262 June, [facility] [address] 38164- 9734 June, Low back pain M54.5 ; Chronic prescription opiate use Z79.899 ; Candidal intertrigo B37.2 ; Urge incontinence N39.41 ; Essential hypertension I10 ; Moderate episode of recurrent major depressive disorder F33.1 ; Age-related osteoporosis without current pathological fracture M81.0 and BMI 45.0-49.9, adult Z68.42 [facility] [address] 37493- 6258 June, [facility] [address] 03535- 5133 May, Anxiety F41.9 [facility] [address] 45046- 8974 May, [facility] [id number] [place] [address] 43993- 7272 May, [facility] [address] 35692- 3917 Apr, Anxiety F41.9 [facility] [id number] [place] [address] 42336- 8637 Apr, [facility] [address] 99320- 0325 15 Apr, 2017 Low back pain M54.5 [facility] [id number] [place] [address] 58895- 7411 Apr, [facility] [address] 70969- 8845 Apr, [facility] [id number] [place] [address] 62857- 3986 Apr, Anxiety F41.9 [facility] [address] 97286- 9162 Apr, Right groin pain R10.31 [place] [address] 76158- 7510 Mar, [facility] [address] 93257- 7684 Mar, [place] [address] 46339- 5830 Mar, Anxiety F41.9 [facility] [address] 64138- 6756 Mar, Low back pain M54.5 [place] [address] 02622- 0245 Mar, Right groin pain R10.31 ; Low back pain M54.5 and BMI 45.0- 49.9, adult Z68.42 [place] [id number] [place] [address] 37915- 4510 Mar, [place] [id number] [place] [address] 37809- 8994 Mar, [place] [id number] [place] [address] 94541- 8930 Mar, [facility] [id number] [place] [address] 76160 -1315 Mar, [facility] [address] 71207 -4975 Mar, Cough R05 ; Pneumonia of right lower lobe due to infectious organism J18.1 and Abnormal chest x-ray R93.8 [place] [id number] [place] [address] 07871- 2486 Mar, [facility] [address] [address]- 8986 Mar, [facility] [id number] [place] [address] 840855- 2706 Jan, Anxiety F41.9 [facility] [id number] [place] [address] 15425- 1320 Jan, [facility] [id number] [place] [address] 11391- 0813 Jan, Moderate episode of recurrent major depressive disorder F33.1 [facility] [id number] [place] [address] 96847- 0478 Jan, Subacromial bursitis of right shoulder joint M75.51 ; Shortness of breath on exertion R06.02 and BMI 45.0-49.9, adult Z68.42 [facility] [id number] [place] [address] 24028- 7816 Dec, Anxiety F41.9 [facility] [id number] [place] [address] 54632- 0369 Dec, [facility] [id number] [place] [address] 20098- 1837 Dec, Low back pain M54.5 [facility] [id number] [place] [address] 02434- 3198 Oct, Low back pain M54.5 [facility] [address], [place] [address]- 9733 Sep, [facility] [id number] [place] [address] 95578- 9329 Sep, Erectile dysfunction due to diseases classified elsewhere N52.1 [facility] [address] [address]- 8951 Sep, Erectile dysfunction due to diseases classified elsewhere N52.1 [facility] [id number] [place] [address] 07742- 1075 Sep, [facility] [address] 23537- 8149 Sep, Erectile dysfunction due to diseases classified elsewhere N52.1 [facility] [id number] [place] [address] 05215- 8692 Sep, Low back pain M54.5 and Anxiety F41.9 [facility] [id number] [place] [address] 25885 -9044 Aug, Acute allergic rhinitis J30.9 [facility] [address] 50923- 7996 Aug, [facility] [id number] [place] [address] 80892- 1428 Aug, Anxiety F41.9 [facility] [address] 17592- 9527 Jul, Low back pain M54.5 ; Chronic prescription opiate use Z79.899 and Essential hypertension I10 [facility] [address] 02351- 3279 Jul, Anxiety F41.9 and Low back pain M54.5 [facility] [id number] [place] [address] 07465- 7024 June, [facility] [address] 46767- 7030 June, Anxiety F41.9 [facility] [id number] [place] [address] 19532- 5959 May, Low back pain M54.5 [facility] [id number] [place] [address] 15503- 9769 May, [facility] [id number] [place] [address] 16184- 4507 May, Anxiety F41.9 [place] [id number] [place] [address] 29780- 1349 Apr, [place] [address] 87388- 8008 24 Apr, 2016 Low back pain M54.5 [place] [id number] [place] [address] 58580- 0876 17 Apr, 2016 Moderate episode of recurrent major depressive disorder F33.1 [place] [address] 02333- 4380 06 Apr, 2016 Anxiety F41.9 [place] [address] 80100- 8242 21 Apr, 2016 Low back pain M54.5 [place] [address] 11592- 1430 15 Apr, 2016 Elevated alkaline phosphatase level R74.8 [place] [id number] [place] [address] 66739- 9072 10 Apr, 2016 Alkaline phosphatase elevation R74.8 [place] [id number] [place] [address] 14402- 7950 06 Apr, 2016 Anxiety F41.9 [place] [id number] [place] [address] 40485- 0646 03 Apr, 2016 Low back pain M54.5 [place] [id number] [place] [address] 25350- 7167 Apr, History of weight loss surgery Z98.84 ; Encounter for hepatitis C screening test for low risk patient Z11.59 ; History of herpes genitalis Z86.19 ; Essential hypertension I10 ; Hyperlipidemia, unspecified E78.5 ; Exposure to STD Z20.2 and Benign prostatic hyperplasia, presence of lower urinary tract symptoms unspecified, unspecified morphology N40.0 [place] [id number] [place] [address] 39088- 4397 Apr, [place] [id number], [place] [address]- 3668 Mar, [facility] [id number] [place] [address] 67226- 7512 Mar, [facility] [id number] [place] [address] 60474- 5317 Mar, [facility] [id number] [place] [address] 13901- 2387 Mar, Acute right-sided low back pain with right-sided sciatica M54.41 [place] [id number] [place] [address] 89844- 1220 Mar, Low back pain M54.5 [facility] [id number] [place] [address] 63932 -8301 Mar, Muscle strain of chest wall, initial encounter S29.011A ; Muscle strain of right thigh, initial encounter S76.911A and Acute non- recurrent maxillary sinusitis J01.00 [place] [id number] [place] [address] 67673- 9617 Mar, Benign prostatic hyperplasia, presence of lower urinary tract symptoms unspecified, unspecified morphology N40.0 [place] [id number] [place] [address] 73986- 1714 Jan, Low back pain M54.5 [place] [id number] [place] [address] 29998- 7980 Jan, Low back pain M54.5 ; Essential hypertension I10 ; Hyperlipidemia, unspecified E78.5 ; Anxiety F41.9 ; Moderate episode of recurrent major depressive disorder F33.1 ; Primary insomnia F51.01 ; Exposure to STD Z20.2 ; Encounter for hepatitis C screening test for low risk patient Z11.59 and History of herpes genitalis Z86.19 [place] [address], [place] [address]- 5509 17 Jan, 2016 [facility] [id number] [place] [address] 88859- 8225 Nov, [facility] [id number] [place] [address] 27575- 3528 Nov, Anxiety F41.9 ; Cervicalgia M54.2 ; Moderate episode of recurrent major depressive disorder F33.1 and Encounter for immunization Z23 [facility] [address], [place] [address]- 2950 Oct, [facility] [id number] [place] [address] 65805- 6322 Oct, [facility] [id number] [place] [address] 71739- 0600 Oct, [facility] [id number] [place] [address] 81547- 6548 Oct, [facility] [id number] [place] [address] 24659- 5155 Sep, [facility] [id number] [place] [address] 02805- 1688 Aug, Low back pain M54.5 ; Anxiety F41.9 ; Primary insomnia F51.01 and Chronic prescription opiate use Z79.899 [facility] [address], [place] [address]- 4925 Jul, [facility] [id number], [place] [address]- 8405 Jul, [facility] [id number] [place] [address] 84312- 1797 Jul, [facility] [address], [place] [address]- 9965 Jul, [facility] [id number] [place] [address] 48542- 9595 Jul, [facility] [address], [place] [address]- 4010 June, [facility] [id number] [address]- 8449 June, [facility] [id number] [place] [address] 48642- 3347 June, [facility] [id number] [place] [address] 33608- 8546 June, [facility] [id number] [place] [address] 01126- 5828 May, Preoperative cardiovascular examination Z01.810 [facility] [id number] [place] [address] 83716- 0696 May, [facility] [id number] [place] [address] 80517- 8375 Apr, [facility] [id number] [place] [address] 07678- 1573 Apr, Osteoarthritis of right knee M17.9 [facility] [id number] [place] [address] 14664- 7787 Apr, [facility] [id number] [place] [address] 91036- 8943 Apr, [facility] [id number] [place] [address] 04928- 7643 Apr, [facility] [id number] [place] [address] 04436- 9371 Apr, [facility] [id number] [place] [address] 07607- 7785 08 May, 2015 History of excessive cerumen Z78.9 ; Obstructive sleep apnea syndrome G47.33 ; History of diverticulitis Z87.19 and Nephrolithiasis N20.0 [facility] [address], [place] [address]- 4552 Apr, [facility] [id number], [place] [address] -0795 Apr, Abdominal pain R10.9 [facility] [id number] [place] [address] 95333- 3527 10 Apr, 2015 [facility] [id number] [place] [address] 11729- 4468 04 Apr, 2015 Osteoarthritis of right knee M17.9 [facility] [id number] [place] [address] 99220- 2594 Mar, [facility] [id number] [place] [address] 74557- 3804 Mar, [facility] [id number] [place] [address] 28252- 5760 Mar, [place] [id number] [place] [address] 08667- 1645 Mar, [facility] [id number] [place] [address] 48395 -1133 Mar, Pyelonephritis N12 ; Left-sided thoracic back pain M54.6 ; Hematuria, unspecified R31.9 and Kidney stone N20.0 [place] [id number] [place] [address] 09327- 6017 Mar, History of weight loss surgery Z98.84 [facility] [id number] [place] [address] 52344- 8440 Mar, History of weight loss surgery Z98.84 and Hyperlipidemia, unspecified E78.5 [facility] [address] [place] [address] 13980- 0436 Mar, Low back pain M54.5 ; Chronic prescription opiate use Z79.899 ; Hyperlipidemia, unspecified E78.5 ; Spasm of back muscles M62.830 and History of weight loss surgery Z98.84 [facility] [id number] [place] [address] 27593- 0658 Jan, [facility] [id number] [place] [address] 28847- 5200 Jan, [facility] [id number], [place] [address]- 2933 Jan, [facility] [address] [place] [address] 52171- 4990 Dec, [facility] [id number] [place] [address] 53292- 7667 Dec, [facility] [id number] [place] [address] 499666- 4907 Dec, [facility] [id number] [place] [address] 932803- 0213 Nov, [facility] [id number] [place] [address] 685057- 8842 Nov, Obstructive sleep apnea syndrome G47.33 and Pharyngoesophageal dysphagia R13.14 [facility] [id number] [place] [address] 71223- 1046 Nov, [facility] [id number] [place] [address] 59966- 0308 Nov, [facility] [id number] [place] [address] 29553- 9208 Nov, [facility] [id number] [address] 30 Oct, 2014 Dental examination V72.2 [facility] [id number], [place] [address]- 4491 Oct, [facility] [id number] [place] [address] 93349- 8355 Oct, [facility] [id number] [place] [address] 225737- 1873 Oct, [facility] [address] 4261 Oct, [facility] [id number] [place] [address] 52322- 3212 Oct, BPH (benign prostatic hyperplasia) 600.00 and Urinary frequency 788.41 [facility] [id number] [place] [address] 38188- 6632 Oct, [facility] [id number] [place] [address] 11506- 6968 Oct, [facility] [id number] [place] [address] 47640- 6551 Oct, [facility] [address] 19607- 9668 Sep, Cerumen impaction 380.4 ; Cerumen debris on tympanic membrane 380.4 ; Psoriasis 696.1 and MICKY (secretory otitis media) 381.4 [facility] [id number] [place] [address] [id number] Sep, Dental examination V72.2 [facility] [id number] [place] [address] 76060- 8074 Sep, Fatigue 780.79 ; Irritable bowel syndrome 564.1 ; Overweight 278.02 ; Poor sleep V69.4 ; Shaking spells 781.0 and Broken tooth 873.63 [facility] [id number] [place] [address] 26524- 7687 Sep, [facility] [id number] [place] [address] 57687- 5027 Sep, [facility] [id number] [place] [address] 93926- 6207 Aug, [facility] [id number] [place] [address] 01414- 5363 Jul, [facility] [id number] [place] [address] 93098- 7461 Jul, [facility] [id number] [place] [address] 86886- 2086 Jul, [facility] [address] [place] [address]- 0359 Jul, [facility] [address] [id number] [place] [address] June, Arthritis of knee, right 716.96 [facility] [address] [id number] [place] [address] June, [facility] [address] [id number] [address] June, Elevated blood pressure reading without diagnosis of hypertension 796.2 [facility] [address] [id number] [place] [address] June, [facility] [address] [id number] [address] June, [facility] [id number] [place] [address] June, [facility] [id number] [address] June, [facility] [address] [id number] [place] [address] May, [facility] [id number] [place] [address] May, [facility] [address] [id number], [place] [address] Apr, [facility] [address] [id number] [address] Apr, [facility] [address] [id number] [place] [address] Apr, [facility] [address] [id number] [place] [address] Apr, [facility] [address] [id number] [place] [address] Apr, [facility] [address] [facility] [id number] [place] [address] 20 Apr, 2014 [facility] [place] [facility] [address] [id number] [place] [address]- [address] Apr, 2014 [facility] [place] [facility] [address] [id number] [place] [address] Apr, 2014 [facility] [place] [facility] [address] [facility] [id number] [place] [address]- [address] Apr, 2014 [facility] [place] [facility] [address] [id number] [place] [address]- [address] Apr, 2014 [facility] [place] [facility] [address] [id number] [place] [address]- [address] Apr, 2014 [facility] [place] [facility] [address] [facility] [id number] [place] [address]- [address] Apr, 2014 [facility] [place] [facility] [address] [facility] [id number] [place] [address]- [address] 24 Apr, 2014 [facility] [place] [facility] [address] [facility] [id number] [place] [address]- [address] 24 Apr, 2014 [facility] [place] [facility] [address] [facility] [id number] [place] [address] Apr, 2014 [facility] [facility] [address] [facility] [id number] [place] [address] Apr, 2014 [facility] [place] [facility] [address] [facility] [id number] [place] [address] Apr, 2014 [facility] [place] [facility] [address] [facility] [id number] [place] [address] Apr, 2014 [facility] [place] [facility] [address] [facility] [id number] [place] [address] Apr, 2014 [facility] [place] [facility] [address] [facility] [id number] [place] [address] 18 Apr, 2014 [facility] [place] [facility] [address] [facility] [id number] [place] [address] Apr, 2014 [facility] [place] [facility] [address] [id number] [place] [address]- [address] Apr, 2014 [facility] [place] [facility] [address] [id number] [place] [address]- 4876 Apr, 2014 [facility] [place] [facility] [address] [facility] [id number] [place] [address]- 2776 Apr, 2014 [facility] [place] [facility] [address] [id number] [place] [address]- 0727 Apr, 2014 [facility] [place] [facility] [address] [id number] [place] [address]- 3946 Apr, 2014 [facility] [place] [facility] [address] [facility] [id number] [place] [address]- 8822 Apr, 2014 [facility] [place] [facility] [address] [facility] [id number] [place] [address]- 7258 Apr, 2014 [facility] [place] [facility] [address] [facility] [id number] [place] [address]- 5063 Apr, 2014 [facility] [place] [facility] [address] [facility] [id number] [place] [address]- 7271 Apr, 2014 [facility] [place] [facility] [address] [facility] [id number] [place] [address]- 3623 Apr, 2014 [facility] [place] [facility] [address] [facility] [id number] [place] [address] 2546 Apr, 2014 [facility] [facility] [address] [facility] [id number] [place] [address]- 6410 Apr, 2014 [facility] [facility] [address] [facility] [id number] [place] [address]- 1077 Mar, [facility] [address] [facility] [id number] [place] [address]- 3645 Mar, [facility] [place] [facility] [address] [facility] [id number] [place] [address]- 4778 Mar, [facility] [address] [id number] [place] [address]- 8231 Mar, [facility] [address] [id number] [place] [address]- 2739 Mar, [facility] [place] [facility] [address] [id number] [place] [address]- 4706 Mar, [facility] [place] [facility] [address] [id number] [place] [address]- 3758 Mar, [facility] [address] [id number] [place] [address]- 6710 Mar, [facility] [place] [facility] [address] [id number] [place] [address]- 9429 Mar, [facility] [address] [id number] [place] [address]- 3870 Mar, [facility] [address] [id number] [place] [address]- 4526 Jan, [facility] [place] [facility] [address] [id number] [place] [address]- 4875 Jan, [facility] [place] [address] [id number] [place] [address]- 7536 Jan, [facility] [place] [facility] [address] [id number] [place] [address]- 8637 Jan, [facility] [address] [id number], [place] [address]- 6977 Jan, [facility] [facility] [address] [id number] [place] [address]- 9507 Jan, [facility] [address] [id number] [place] [address]- 7604 Jan, [facility] [address] [id number], [place] [address]- 3[address] Jan, [facility] [address] [id number], [place] [address] 05 Jan, 2014 [facility] [address] [id number] [place] [address]- 2130 Jan, [facility] [address] [id number] [place] [address]- 6557 Jan, [facility] [address] [facility] [id number] [place] [address]- 5989 Jan, [facility] [address] [id number] [place] [address]- 5882 Dec, [facility] [address] [id number] [place] [address]- 4731 Dec, [facility] [address] [id number] [place] [address]- 1139 Dec, [facility] [address] [facility] [id number] [place] [address]- 8745 Dec, [facility] [address] [facility] [id number] [place] [address]- 6300 Dec, [facility] [address] [facility] [id number] [place] [address]- 1159 Dec, [facility] [address] [facility] [id number] [place] [address]- 7881 Dec, [facility] [address] [facility] [id number], [place] [address]- 1192 Dec, [facility] [address] [id number], [place] [address]- 5931 Dec, [facility] [address] [id number] [place] [address]- 9889 Dec, [facility] [address] [facility] [id number] [place] [address]- 9531 Nov, [facility] [address] [facility] [id number] [place] [address]- 2327 Nov, [facility] [address] [id number] [place] [address]- 7814 27 Nov, 2013 [facility] [address] [id number] [place] [address]- 8034 Nov, [facility] [address] [id number] [place] [address]- 2966 Nov, [facility] [address] [id number] [place] [address]- 7271 Nov, [facility] [address] [id number] [place] [address]- 6225 Nov, [facility] [address] [id number] [place] [address]- 0604 Nov, [facility] [address] [id number] [place] [address]- 6291 Nov, [facility] [address] [id number] [place] [address]- 8749 Nov, [facility] [address] [id number] [place] [address]- 2111 Nov, [facility] [address] [id number] [place] [address]- 1791 17 Nov, 2013 [facility] [address] [id number] [place] [address]- 5536 14 Nov, 2013 [facility] [address] [id number] [place] [address]- 5944 14 Nov, 2013 [facility] [address] [id number] [place] [address]- 0812 10 Nov, 2013 [facility] [address] [id number] [place] [address]- 4828 10 Nov, 2013 [facility] [address] [id number] [place] [address]- 8736 08 Nov, 2013 [facility] [address] [id number] [place] [address]- 5254 Nov, [facility] [address] [id number] [place] [address]- 1103 Nov, [facility] [address] [id number] [place] [address]- 5714 Nov, [facility] [address] [id number] [place] [address]- 5732 Oct, [facility] [address] [id number] [place] [address]- 9589 Oct, [facility] [address] [id number] [place] [address]- 3656 Oct, [facility] [address] [id number] [place] [address]- 4115 Oct, [facility] [address] [id number] [place] [address]- 3386 Oct, [facility] [address] [id number] [place] [address]- 7604 Oct, [facility] [address] [id number] [place] [address]- 3405 Oct, [facility] [address] [id number] [place] [address]- 6943 Oct, [facility] [address] [id number] [place] [address]- 4642 Oct, [facility] [address] [id number], [place] [address]- 6669 Oct, [facility] [address] [id number] [place] [address]- 9291 Sep, [facility] [address] [id number] [place] [address]- 3703 Sep, [facility] [address] [id number] [place] [address]- 8600 Sep, [facility] [address] [id number] [place] [address]- 3823 Sep, [facility] [address] [id number] [place] [address]- 4242 Sep, [facility] [address] [id number] [place] [address]- 0778 Sep, [facility] [address] [id number] [place] [address]- 1874 Sep, [facility] [address] [id number] [place] [address]- 9513 Sep, [facility] [address] [id number] [place] [address]- 8162 Sep, [facility] [address] [id number] [place] [address]- 0015 Sep, [facility] [address] [id number] [place] [address]- 3811 Sep, [facility] [address] [id number] [place] [address]- 1779 Sep, [facility] [address] [id number] [place] [address]- 4049 Sep, [facility] [address] [id number] [place] [address]- 4058 Sep, [facility] [address] [id number] [place] [address]- 7574 Sep, [facility] [address] [id number] [place] [address]- 9500 Sep, [facility] [address] [id number] [place] [address]- 6888 Sep, [facility] [address] [id number] [place] [address]- 1534 Sep, [facility] [address] [id number] [place] [address]- 6395 Sep, [facility] [address] [id number] [place] [address]- 4043 Sep, [facility] [address] [id number] [place] [address]- 1206 Sep, [facility] [address] [id number] [facility] [place] [address]- 8956 Sep, [facility] [address] [id number] [place] [address]- 6576 Sep, [facility] [address] [id number] [place] [address]- 4093 Sep, [facility] [address] [id number] [place] [address]- 8612 Sep, [facility] [address] [id number] [place] [address]- 7372 Aug, [facility] [address] [id number] [place] [address]- 4116 Aug, [facility] [address] [id number] [place] [address]- 3138 Aug, [facility] [address] [id number] [place] [address]- 3380 Aug, [facility] [address] [id number] [place] [address]- 9404 Aug, [facility] [address] [id number] [place] [address]- 5896 Aug, [facility] [address] [id number] [place] [address]- 2450 Aug, [facility] [address] [id number] [place] [address]- 9319 Aug, [facility] [address] [id number] [place] [address]- 4977 Aug, [facility] [address] [id number] [place] [address]- 0126 Aug, [facility] [address] [id number] [place] [address]- 1212 Aug, [facility] [address] [id number] [place] [address]- 5125 Aug, [facility] [address] [id number] [place] [address]- 5656 Aug, [facility] [address] [id number] [place] [address]- 0453 Jul, [facility] [address] [id number] [place] [address]- 9840 Jul, [facility] [address] [id number] [place] [address]- 7418 Jul, [facility] [address] [id number] [place] [address]- 7580 Jul, [facility] [address] [id number] [place] [address]- 9534 Jul, [facility] [place] [facility] [address] [id number] [place] [address]- 2846 Jul, [facility] [facility] [address] [id number] [place] [address]- 0385 Jul, [facility] [place] [facility] [address] [id number] [place] [address]- 4703 June, [facility] [address] [id number] [place] [address]- 4126 June, [facility] [address] [id number] [place] [address]- 8660 June, [facility] [address] [id number] [place] [address]- 4438 June, [facility] [facility] [address] [id number] [place] [address]- 4918 May, [facility] [address] [id number] [place] [address]- 7322 May, [facility] [address] [id number] [place] [address]- 8159 May, [facility] [address] [id number] [place] [address]- 1416 May, [facility] [address] [id number] [place] [address]- 3149 May, [facility] [address] [id number] [place] [address]- 0348 May, [facility] [address] [id number] [place] [address]- 5044 May, [facility] [place] [facility] [address] [id number] [place] [address]- 4830 May, [facility] [place] [facility] [address] [id number] [place] [address]- 6459 May, [facility] [facility] [address] [id number] [place] [address]- 5999 May, [facility] [facility] [address] [id number] [place] [address]- 8243 Apr, [facility] [address] [facility] [id number] [place] [address]- 9689 Apr, [facility] [facility] [address] [id number] [place] [address]- 9102 Apr, [facility] [place] [facility] [address] [id number] [place] [address]- 2062 Apr, [facility] [place] [facility] [address] [id number] [place] [address]- 1805 Apr, [facility] [place] [facility] [address] [id number] [place] [address]- 0859 Apr, [facility] [place] [facility] [address] [id number] [place] [address]- 5259 Apr, [facility] [place] [facility] [address] [id number] [place] [address]- 0776 Apr, [facility] [place] [facility] [address] [id number] [place] [address]- 4722 Apr, [facility] [place] [facility] [address] [facility] [id number] [place] [address]- 1056 Apr, [facility] [place] [facility] [address] [id number] [place] [address]- 5969 Mar, [facility] [place] [facility] [address] [id number] [place] [address]- 7948 Mar, [facility] [place] [facility] [address] [id number] [place] [address]- 9979 Mar, [facility] [place] [facility] [address] [id number] [place] [address]- 1241 Mar, [facility] [place] [facility] [address] [id number] [place] [address]- 3304 Mar, [facility] [place] [facility] [address] [id number] [place] [address]- 0404 Mar, [facility] [place] [facility] [address] [id number] [place] [address]- 9501 Jan, [facility] [place] [facility] [address] [id number] [place] [address]- 3582 Jan, [facility] [place] [facility] [address] [id number], [place] [address]- 4732 Jan, [facility] [place] [facility] [address] [id number] [place] [address]- 3060 Jan, [facility] [place] [facility] [address] [id number] [place] [address]- 3087 Jan, [facility] [place] [facility] [address] [facility] [id number] [place] [address]- 9062 Jan, [facility] [place] [facility] [address] [id number] [place] [address]- 0533 Jan, [facility] [address] [id number] [place] [address]- 1526 Jan, [facility] [address] [id number] [place] [address]- 6682 Jan, [facility] [address] [id number] [place] [address]- 2244 Dec, [facility] [address] [id number] [place] [address]- 5767 Dec, [facility] [address] [id number] [place] [address]- 5192 Dec, [facility] [address] [id number] [place] [address]- 9022 Dec, [facility] [address] [id number] [place] [address]- 2306 Dec, [facility] [address] [id number] [place] [address]- 2501 Dec, [facility] [address] [id number] [place] [address]- 8897 Dec, [facility] [address] [facility] [id number] [place] [address]- 7607 Dec, [facility] [address] [id number] [place] [address]- 9394 Dec, [facility] [address] [id number] [place] [address]- 1946 Dec, [facility] [place] [facility] [address] [id number] [place] [address]- 0640 Dec, [facility] [place] [facility] [address] [id number] [place] [address]- 9298 Nov, [facility] [place] [facility] [address] [id number] [place] [address]- 2595 Nov, [facility] [place] [facility] [address] [id number] [place] [address]- 0401 Nov, [facility] [place] [facility] [address] [id number] [place] [address]- 8532 Nov, [facility] [place] [facility] [address] [id number] [place] [address]- 2593 Nov, [facility] [place] [facility] [address] [id number] [place] [address] 2545 Oct, [facility] [address] [id number] [place] [address] Oct, [facility] [place] [facility] [address] [id number] [place] [address] Sep, [facility] [place] [facility] [address] [id number] [place] [address] Aug, [facility] [place] [facility] [address] [id number] [place] [address] Aug, [facility] [place] [facility] [address] [id number] [place] [address] Aug, [facility] [place] [facility] [address] [id number] [place] [address] Aug, [facility] [place] [facility] [address] [id number] [place] [address] Jul, [facility] [place] [facility] [address] [id number], [place] [address] Jul, [facility] [place] [facility] [address] [id number] [place] [address] June, [facility] [place] [facility] [address] [id number] [place] [address] June, [facility] [place] [facility] [address] [id number] [place] [address] June, [facility] [place] [facility] [address] [id number], [place] [address] 08 May, 2012 [facility] [address] [facility] [id number] [place] [address] 04 May, 2012 [facility] [address] [facility] [id number] [place] [address] May, [facility] [address] [facility] [id number] [place] [address] 18 Apr, 2012 [facility] [place] [facility] [address] [facility] [id number] [place] [address] 18 Apr, 2012 [facility] [address] [facility] [id number] [place] [address] 15 Apr, 2012 [facility] [address] [facility] [id number] [place] [address] 14 Apr, 2012 [facility] [id number] [place] [address] Apr, [facility] [address] [facility] [id number] [place] [address] 265[address] 27 Apr, 2012 [facility] [id number] [place] [address] Apr, [facility] [id number] [place] [address] Apr, [facility] [id number] [place] [address] Apr, [facility] [place] [facility] [address] [facility] [id number], [place] [address] 20 Apr, 2012 [facility] [place] [facility] [address] [facility] [id number] [place] [address] 76[address] 19 Apr, 2012 [facility] [place] [facility] [address] [facility] [id number], [place] [address] 07 Apr, 2012 [facility] [place] [facility] [address] [id number], [place] [address] 07 Apr, 2012 [facility] [place] [facility] [address] [id number] [place] [address] Mar, [facility] [address] [id number] [place] [address] 35[address] Mar, [facility] [address] [id number] [place] [address] 8799 16 Mar, 2012 [facility] [address] [id number] [place] [address] 4[address] Mar, [facility] [address] [id number] [place] [address] 1573 Mar, [facility] [address] [id number] [place] [address] Jan, [facility] [address] [id number] [place] [address] Jan, [facility] [address] [id number] [place] [address] Jan, [facility] [address] [id number] [place] [address] Jan, [facility] [address] [id number] [place] [address] 14 Jan, 2012 [facility] [address] [id number] [place] [address] 9[address] Jan, [facility] [address] [id number] [place] [address]- 20[address] 13 Jan, 2012 [facility] [place] [facility] [address] [id number] [place] [address]- 46[address] 11 Jan, 2012 [facility] [place] [facility] [address] [id number] [place] [address]- 3929 06 Jan, 2012 [facility] [place] [facility] [address] [id number] [place] [address]- 0946 06 Jan, 2012 [facility] [place] [facility] [address] [id number], [place] [address] Jan, [facility] [place] [facility] [address] [id number] [place] [address]- 9[address] Jan, [facility] [place] [facility] [address] [id number] [place] [address] Jan, [facility] [place] [facility] [address] [id number] [place] [address]- 8[address] Jan, [facility] [place] [facility] [address] [id number] [place] [address]- 3027 Dec, [facility] [place] [facility] [address] [id number] [place] [address]- 4837 26 Jan, 2012 [facility] [place] [facility] [address] [id number] [place] [address]- 4245 Dec, [facility] [place] [facility] [address] [id number] [place] [address]- 8706 Dec, [facility] [place] [facility] [address] [id number] [place] [address]- 3605 15 Jan, 2012 [facility] [place] [facility] [address] [id number] [place] [address]- 1435 15 Jan, 2012 [facility] [place] [facility] [address] [id number] [place] [address]- 2860 14 Jan, 2012 [facility] [place] [facility] [address] [id number], [place] [address] 78[address] 14 Jan, 2012 [facility] [place] [facility] [address] [id number], [place] [address]- 8635 14 Jan, 2012 [facility] [place] [facility] [address] [id number], [place] [address]- 54[address] 14 Jan, 2012 [facility] [place] [facility] [address] [id number], [place] [address]- 39[address] 07 Jan, 2012 [facility] [place] [facility] [address] [facility] [id number] [place] [address]- 7666 07 Jan, 2012 [facility] [place] [facility] [address] [id number] [place] [address]- 5966 16 Dec, 2011 [facility] [place] [facility] [address] [id number] [place] [address]- 0739 16 Dec, 2011 [facility] [place] [facility] [address] [id number] [place] [address] 2546 13 Nov, 2011 [facility] [place] [facility] [address] [id number] [place] [address]- 2366 13 Nov, 2011 [facility] [place] [facility] [address] [id number] [place] [address]- 5510 13 Nov, 2011 [facility] [place] [facility] [address] [id number] [place] [address]- 3104 12 Nov, 2011 [facility] [place] [facility] [address] [id number] [place] [address]- 4094 30 Oct, 2011 [facility] [place] [facility] [address] [id number] [place] [address]- 6327 Sep, [facility] [place] [facility] [address] [id number] [place] [address]- [address]290 Aug, [facility] [place] [facility] [address] [id number] [place] [address]- 3[address] Aug, [facility] [place] [facility] [address] [id number] [place] [address]- 9603 Aug, [facility] [place] [facility] [address] [id number] [place] [address]- 9120 Aug, [facility] [place] [facility] [address] [id number] [place] [address] June, [facility] [place] [facility] [address] [id number] [place] [address] June, [facility] [place] [facility] [address] [id number] [place] [address] May, [facility] [place] [facility] [address] [id number] [place] [address] Apr, [facility] [address] [id number] [place] [address] Apr, [facility] [place] [facility] [address] [id number] [place] [address] Apr, [facility] [place] [facility] [address] [id number] [place] [address] Apr, [facility] [place] [facility] [address] [id number] [place] [address] Apr, [facility] [place] [facility] [address] [id number] [place] [address] Apr, [facility] [place] [facility] [address] [id number] [place] [address] Mar, [facility] [place] [facility] [address] [id number] [place] [address] Mar, [facility] [place] [facility] [address] [id number] [place] [address] Mar, [facility] [place] [facility] [address] [id number] [place] [address] Jan, [facility] [place] [facility] [address] [id number] [place] [address] Jan, [facility] [place] [facility] [address] [id number] [place] [address] Jan, [facility] [place] [facility] [address] [id number] [place] [address] Jan, [facility] [place] [facility] [address] [id number] [place] [address] Jan, [facility] [place] [facility] [address] [id number] [place] [address] Jan, [facility] [place] [facility] [address] [id number] [place] [address] Jan, [facility] [place] [facility] [address] [id number] [place] [address] Dec, [facility] [place] [facility] [address] [id number] [place] [address] Dec, [facility] [place] [facility] [address] [id number] [place] [address] Nov, [facility] [place] [facility] [address] [id number] [place] [address] Nov, [facility] [place] [facility] [address] [id number] [place] [address] Nov, [facility] [place] [facility] [address] [id number] [place] [address] Nov, [facility] [place] [facility] [address] [id number] [place] [address] Oct, [facility] [place] [facility] [address] [id number] [place] [address] Sep, [facility] [place] [facility] [address] [id number] [place] [address] Mar, [facility] [place] [facility] [address] [id number] [place] [address] Jan, [facility] [place] [facility] [address] [facility] [id number] [place] [address] Dec, [facility] [place] [facility] [address] [id number] [place] [address] Dec, [facility] [place] [facility] [address] [id number] [place] [address] Dec, [facility] [place] [facility] [address] [id number] [place] [address] Dec, [facility] [place] [facility] [address] [facility] [id number] [place] [address] Nov, [facility] [place] [facility] [address] [id number] [place] [address] 15 Nov, 2009 [facility] [place] [facility] [address] [id number] [place] [address] 14 Nov, 2009 [facility] [address] [id number] [place] [address] 14 Nov, 2009 [facility] [address] [id number] [place] [address] 13 Oct, 2009 [facility] [address] [id number] [place] [address] 17 Jul, 2009 [facility] [address] [id number] [place] [address] 17 Jun, 2009 [facility] [address] [id number] [place] [address] June, [facility] [address] [id number] [place] [address] 17 Apr, 2009 [facility] [address] [id number] [place] [address] Mar, [facility] [address] [id number] [place] [address] Jan, [facility] [address] [id number], [place] [address] Jan, [facility] [address] [id number] [place] [address] 27 Dec, 2008 [facility] [address] [id number], [place] [address] 25 Dec, 2008 [facility] [place] [facility] [address] [id number] [place] [address] Dec, [facility] [place] [facility] [address] [id number] [place] [address] 13 Dec, 2008 [facility] [place] [facility] [address] [id number], [place] [address] 30 Nov, 2008 [facility] [place] [facility] [address] [id number], [place] [address] Jul, [facility] [address] [facility] [id number] [place] [address] June, IMMUNIZATIONS No Known Immunizations SOCIAL HISTORY Never Assessed REASON FOR VISIT Bilateral foot pain (left foot xray done) - [facility] Langley PLAN OF CARE Activity Details Follow Up 2 Months Reason: Future/Pending Procedure FOOT ARCH SUPP LONGITUD/META VITAL SIGNS Height 69 in 2018-01-01 Blood pressure systolic 140 mmHg 2018-01-01 Blood pressure diastolic 90 mmHg 2018-01-01 MEDICATIONS Unknown Medications RESULTS No Results PROCEDURES Procedure Date Ordered Result Body Site FT ARCH SUPP PREMOLD [id number]/MT EA Jan 01, 2018 INSTRUCTIONS MEDICATIONS ADMINISTERED No Known Medications MEDICAL (GENERAL) HISTORY Type Description Date Medical History hypertension Medical History sleep apnea-did not tolerate CPAP Medical History oxygen dependent at [facility] Medical History colonic polyps Medical [...] colonoscopy ([facility])-polyp removed 10/2009 Surgical History EGD ([place])-gastritis 10/2009 [...]
--- OUTSIDE RECORDS SUMMARY | 2018-02-26 19:43 | XMS REPORT ---
Author Author CHRIS STEVENSON [facility] Address [address] [place] [address] Care Team Providers Care Regional Recruiter Name Role Phone GRAHAMELLIOTT HANNAHANY Unavailable PROBLEMS Type Condition ICD9-CM Code XYO03-DC Code Onset Dates Condition Status SNOMED Code Problem Pulmonary asbestosis J61 Active 11785222 Problem Left ventricular diastolic dysfunction I51.9 Active 623108966 Problem Renal cyst, left N28.1 Active 20227506 Problem History of weight loss surgery Z98.84 Active 715017018 Problem Nocturnal hypoxia G47.34 Active 436857461 Problem Obstructive sleep apnea syndrome G47.33 Active 46070166 Problem Nephrolithiasis N20.0 Active 23696543 Problem Allergic rhinitis, unspecified allergic rhinitis type J30.9 Active 17623187 Problem 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 Active 48288214 Problem History of diverticulitis Z87.19 Active 564711638021355 Problem Hammertoe of left foot M20.42 Active 122304990 Problem Erectile dysfunction due to diseases classified elsewhere N52.1 Active 670965879 Problem Anxiety F41.9 Active 74824296 Problem Psoriasis L40.9 Active 6695017 Problem Essential hypertension I10 Active 88878115 Problem Moderate episode of recurrent major depressive disorder F33.1 Active 738545444 Problem Chronic prescription opiate use Z79.899 Active 341777583 Problem Acute right-sided low back pain with right-sided sciatica M54.41 Active 250664230 Problem Benign prostatic hyperplasia, presence of lower urinary tract symptoms unspecified, unspecified morphology N40.0 Active 099615921 Problem Low back pain M54.5 Active 617050085 Problem Cervicalgia M54.2 Active 4933079688699 Problem Urge incontinence N39.41 Active 995750394 Problem Age-related osteoporosis without current pathological fracture M81.0 Active 66878122 Problem Esophageal stricture K22.2 Active 07158422 Problem Chronic gout, unspecified cause, unspecified site M1A.9XX0 Active 10835246 Problem Primary insomnia F51.01 Active 136130174 Problem Hyperlipidemia, unspecified E78.5 Active 66611111 ALLERGIES No Information ENCOUNTERS Encounter Location Date Diagnosis [facility] [id number] [place] [address] 29622- 8632 Mar, [facility] [id number] [place] [address] 87527- 2853 Jan, [facility] [id number] [place] [address] 33646- 7619 Dec, Anxiety F41.9 [facility] [address] 84009- 0794 Dec, [facility] [id number] [place] [address] 50945- 4397 Dec, Encounter for immunization Z23 [facility] [id number] [place] [address] 28165 -6847 Dec, [facility] [id number] [place] [address] 16003- 5144 Dec, Hammertoe of left foot M20.42 ; Edema of left foot R60.0 and Onychomycosis B35.1 [facility] [id number] [place] [address] 55696 -6416 Nov, BMI 50.0-59.9, adult Z68.43 [facility] [id number] [place] [address] 46271- 4727 Nov, [facility] [id number] [place] [address] 77837- 4774 Nov, [facility] [id number] [place] [address] 22266- 1436 Nov, Anxiety F41.9 [facility] [id number] [place] [address] 78137- 5298 Oct, [facility] [address] [place] [address]- 8956 Oct, [facility] [id number] [place] [address] 85534- 6591 Oct, BMI 45.0-49.9, adult Z68.42 ; Essential hypertension I10 ; Hyperlipidemia, unspecified E78.5 ; Anxiety F41.9 ; Obstructive sleep apnea syndrome G47.33 ; Moderate episode of recurrent major depressive disorder F33.1 ; Left ventricular diastolic dysfunction I51.9 ; Acute pain of right shoulder M25.511 ; Pain of left foot M79.672 and Pain in right foot M79.671 [facility] [id number] [place] [address] 82330- 2126 Oct, Anxiety F41.9 [facility] [id number] [place] [address] 96724 -5578 Sep, Left foot pain M79.672 [facility] [id number] [place] [address] 54345- 7758 Sep, [facility] [id number] [place] [address] 25536- 6956 Sep, Anxiety F41.9 [facility] [id number] [place] [address] 10421- 4058 Sep, [facility] [id number] [place] [address] 06057- 2958 Aug, [facility] [id number] [place] [address] 02795- 4755 Aug, [facility] [id number] [place] [address] 38508- 0122 Aug, Anxiety F41.9 [facility] [id number] [place] [address] 28651- 5513 Aug, [facility] [id number] [place] [address] 71724- 6057 Jul, [facility] [id number] [place] [address] 60978- 5217 Jul, Anxiety F41.9 [facility] [address] 64576- 9175 June, Anxiety F41.9 [facility] [id number] [place] [address] 16029- 6966 June, [facility] [address] 11841- 2789 June, Low back pain M54.5 ; Chronic prescription opiate use Z79.899 ; Candidal intertrigo B37.2 ; Urge incontinence N39.41 ; Essential hypertension I10 ; Moderate episode of recurrent major depressive disorder F33.1 ; Age-related osteoporosis without current pathological fracture M81.0 and BMI 45.0-49.9, adult Z68.42 [facility] [id number] [place] [address] 00922- 4071 June, [facility] [id number] [place] [address] 40243- 7368 May, Anxiety F41.9 [facility] [address] 34067- 7125 May, [facility] [id number] [place] [address] 04594- 4978 May, [facility] [id number] [place] [address] 19370- 2556 Apr, Anxiety F41.9 [facility] [id number] [place] [address] 51263- 2581 Apr, [facility] [address] 03834- 5607 15 Apr, 2017 Low back pain M54.5 [facility] [id number] [place] [address] 76160- 9041 Apr, [facility] [id number] [place] [address] 80164- 3771 Apr, [facility] [id number] [place] [address] 43542- 1627 Apr, Anxiety F41.9 [facility] [id number] [place] [address] 56433- 8442 Apr, Right groin pain R10.31 [facility] [id number] [place] [address] 88102- 2999 Mar, [facility] [id number] [place] [address] 09129- 7226 Mar, [facility] [facility] [address] 45452- 7542 Mar, Anxiety F41.9 [facility] [id number] [place] [address] 83300- 0241 Mar, Low back pain M54.5 [facility] [id number] [place] [address] 17610- 8414 Mar, Right groin pain R10.31 ; Low back pain M54.5 and BMI 45.0- 49.9, adult Z68.42 [facility] [id number] [place] [address] 19889- 1946 Mar, [facility] [id number] [place] [address] 06287- 7596 Mar, [facility] [id number] [place] [address] 36266- 6062 Mar, [facility] [id number] [place] [address] 23788 -8801 Mar, [facility] [id number] [place] [address] 71371 -8732 Mar, Cough R05 ; Pneumonia of right lower lobe due to infectious organism J18.1 and Abnormal chest x-ray R93.8 [facility] [id number] [place] [address] 75831- 6085 Mar, [facility] [id number] [place] [address] 09218- 8082 Mar, [facility] [id number] [place] [address] 06755- 9897 Jan, Anxiety F41.9 [facility] [id number] [place] [address] 69637- 1766 Jan, [facility] [id number] [place] [address] 54980- 8947 Jan, Moderate episode of recurrent major depressive disorder F33.1 [facility] [id number] [place] [address] 38573- 3909 Jan, Subacromial bursitis of right shoulder joint M75.51 ; Shortness of breath on exertion R06.02 and BMI 45.0-49.9, adult Z68.42 [facility] [id number] [place] [address] 16224- 8704 Dec, Anxiety F41.9 [facility] [id number] [place] [address] 54092- 6030 Dec, [facility] [id number] [place] [address] 23513- 1079 Dec, Low back pain M54.5 [facility] [id number] [place] [address] 00580- 5661 Oct, Low back pain M54.5 [facility] [id number] [place] [address] 34189- 5582 Sep, [facility] [id number] [place] [address] 00780- 3023 Sep, Erectile dysfunction due to diseases classified elsewhere N52.1 [facility] [id number] [place] [address] 45238- 8061 Sep, Erectile dysfunction due to diseases classified elsewhere N52.1 [facility] [id number] [place] [address] 25326- 2036 Sep, [facility] [address] 52227- 1925 Sep, Erectile dysfunction due to diseases classified elsewhere N52.1 [facility] [id number] [place] [address] 11382- 3238 Sep, Low back pain M54.5 and Anxiety F41.9 [facility] [id number] [place] [address] 13037 -9729 Aug, Acute allergic rhinitis J30.9 [facility] [address] 75835- 6211 Aug, [facility] [address] 56835- 5987 Aug, Anxiety F41.9 [facility] [address] 19059- 0568 Jul, Low back pain M54.5 ; Chronic prescription opiate use Z79.899 and Essential hypertension I10 [facility] [address] 31688- 7973 Jul, Anxiety F41.9 and Low back pain M54.5 [facility] [id number] [place] [address] 67305- 7211 June, [facility] [address] 39289- 3671 June, Anxiety F41.9 [facility] [id number] [place] [address] 57899- 3123 May, Low back pain M54.5 [facility] [address] 84406- 1969 May, [facility] [id number] [place] [address] 50022- 4671 May, Anxiety F41.9 [facility] [facility] [id number] [place] [address] 04983- 1737 Apr, [facility] [facility] [address] 22745- 6992 24 Apr, 2016 Low back pain M54.5 [facility] [facility] [id number] [place] [address] 17263- 6661 Apr, Moderate episode of recurrent major depressive disorder F33.1 [place] [address] 71520- 2516 06 Apr, 2016 Anxiety F41.9 [place] [address] 37891- 6299 21 Apr, 2016 Low back pain M54.5 [place] [address] 49129- 8234 15 Apr, 2016 Elevated alkaline phosphatase level R74.8 [facility] [id number] [place] [address] 49320- 9938 10 Apr, 2016 Alkaline phosphatase elevation R74.8 [facility] [id number] [place] [address] 81477- 7362 06 Apr, 2016 Anxiety F41.9 [facility] [id number] [place] [address] 46286- 5171 03 Apr, 2016 Low back pain M54.5 [facility] [facility] [id number] [place] [address] 66776- 1299 03 Apr, 2016 History of weight loss surgery Z98.84 ; Encounter for hepatitis C screening test for low risk patient Z11.59 ; History of herpes genitalis Z86.19 ; Essential hypertension I10 ; Hyperlipidemia, unspecified E78.5 ; Exposure to STD Z20.2 and Benign prostatic hyperplasia, presence of lower urinary tract symptoms unspecified, unspecified morphology N40.0 [facility] [id number] [place] [address] 91289- 6918 02 Apr, 2016 [place] [address] [address]- 6891 Mar, [facility] [id number] [place] [address] 37034- 8072 Mar, [facility] [address] [address]- 5343 Mar, [facility] [id number] [place] [address] 94871- 2658 Mar, Acute right-sided low back pain with right-sided sciatica M54.41 [facility] [id number] [place] [address] 99362- 7539 Mar, Low back pain M54.5 [facility] [id number] [place] [address] 72165 -8387 Mar, Muscle strain of chest wall, initial encounter S29.011A ; Muscle strain of right thigh, initial encounter S76.911A and Acute non- recurrent maxillary sinusitis J01.00 [facility] [id number] [place] [address] 35455- 9914 Mar, Benign prostatic hyperplasia, presence of lower urinary tract symptoms unspecified, unspecified morphology N40.0 [facility] [id number] [place] [address] 53712- 9648 23 Jan, 2016 Low back pain M54.5 [facility] [id number] [place] [address] 07242- 4080 Jan, Low back pain M54.5 ; Essential hypertension I10 ; Hyperlipidemia, unspecified E78.5 ; Anxiety F41.9 ; Moderate episode of recurrent major depressive disorder F33.1 ; Primary insomnia F51.01 ; Exposure to STD Z20.2 ; Encounter for hepatitis C screening test for low risk patient Z11.59 and History of herpes genitalis Z86.19 [facility] [address] [address]- 9537 17 Jan, 2016 [facility] [id number] [place] [address] 70558- 1285 Nov, [facility] [id number] [place] [address] 45019- 7388 Nov, Anxiety F41.9 ; Cervicalgia M54.2 ; Moderate episode of recurrent major depressive disorder F33.1 and Encounter for immunization Z23 [facility] [id number] [place] [address] 20948- 4205 Oct, [facility] [id number] [place] [address] 52366- 4854 Oct, [facility] [id number] [place] [address] 08227- 9998 Oct, [facility] [id number] [place] [address] 53735- 3245 Oct, [facility] [id number] [place] [address] 38956- 6503 Sep, [facility] [id number] [place] [address] 04522- 1518 Aug, Low back pain M54.5 ; Anxiety F41.9 ; Primary insomnia F51.01 and Chronic prescription opiate use Z79.899 [facility] [id number] [place] [address] 34741- 5945 Jul, [facility] [id number] [place] [address] 17232- 2127 Jul, [facility] [id number] [place] [address] 71655- 1635 Jul, [facility] [id number] [place] [address] 62772- 3071 Jul, [facility] [id number] [place] [address] 05493- 8809 Jul, [facility] [address] [address]- 8188 June, [facility] [id number] [place] [address] 21841- 7005 June, [facility] [id number] [place] [address] 29860- 2351 June, [facility] [id number] [place] [address] 96629- 4101 June, [facility] [id number] [place] [address] 40185- 2005 May, Preoperative cardiovascular examination Z01.810 [facility] [id number] [place] [address] 91068- 7785 May, [facility] [id number] [place] [address] 94572- 4456 Apr, [facility] [id number] [place] [address] 36794- 9707 Apr, Osteoarthritis of right knee M17.9 [facility] [id number] [place] [address] 47482- 9504 Apr, [facility] [id number] [place] [address] 75790- 6211 16 May, 2015 [facility] [id number] [place] [address] 49203- 7247 Apr, [facility] [id number] [place] [address] 72206- 3338 Apr, [facility] [id number] [place] [address] 09875- 2003 Apr, History of excessive cerumen Z78.9 ; Obstructive sleep apnea syndrome G47.33 ; History of diverticulitis Z87.19 and Nephrolithiasis N20.0 [facility] [id number] [place] [address] 34980- 8000 Apr, [facility] [id number] [place] [address] 48164 -6727 Apr, Abdominal pain R10.9 [facility] [id number] [place] [address] 20832- 8239 10 Apr, 2015 [facility] [id number] [place] [address] 20625- 0476 04 Apr, 2015 Osteoarthritis of right knee M17.9 [facility] [id number] [place] [address] 99860- 1538 Mar, [facility] [address] 00405- 5678 Mar, [facility] [id number] [place] [address] 83395- 7722 Mar, [facility] [id number] [place] [address] 13445- 3700 Mar, [facility] [id number] [place] [address] 35646 -0180 Mar, Pyelonephritis N12 ; Left-sided thoracic back pain M54.6 ; Hematuria, unspecified R31.9 and Kidney stone N20.0 [facility] [id number] [place] [address] 30925- 7031 Mar, History of weight loss surgery Z98.84 [facility] [id number] [place] [address] 73826- 5533 Mar, History of weight loss surgery Z98.84 and Hyperlipidemia, unspecified E78.5 [facility] [id number] [place] [address] 27470- 4145 Mar, Low back pain M54.5 ; Chronic prescription opiate use Z79.899 ; Hyperlipidemia, unspecified E78.5 ; Spasm of back muscles M62.830 and History of weight loss surgery Z98.84 [facility] [id number] [place] [address] 48260- 3797 Jan, [facility] [id number] [place] [address] 32613- 2562 Jan, [facility] [address]- 3800 Jan, [facility] [id number] [place] [address] 75854- 1888 Dec, [facility] [address], [place] [address]- 4220 Dec, [facility] [id number] [place] [address] 12542- 4047 Dec, [facility] [id number] [place] [address] 36399- 2017 Nov, [facility] [id number] [place] [address] [id number] [id number] Nov, Obstructive sleep apnea syndrome G47.33 and Pharyngoesophageal dysphagia R13.14 [facility] [id number] [place] [address] [phone] Nov, [facility] [id number] [place] [address] [phone]- [phone] Nov, [facility] [id number] [place] [address] [id number] Nov, [facility] [id number] [id number] 30 Oct, 2014 Dental examination V72.2 [facility] [id number], [place] [address] 25 Oct, 2014 [facility] [id number] [place] [address] [phone] Oct, [facility] [id number] [place] [address] [phone] 23 Oct, 2014 [facility] [id number] [address] 17 Oct, 2014 [facility] [id number] [place] [address] [phone]- [phone] Oct, BPH (benign prostatic hyperplasia) 600.00 and Urinary frequency 788.41 [facility] [id number] [place] [address] [id number]- [phone] Oct, [facility] [id number] [place] [address] [phone]- [phone] Oct, [facility] [id number] [place] [address] [phone]- [phone] Oct, [facility] [address] [address] Sep, Cerumen impaction 380.4 ; Cerumen debris on tympanic membrane 380.4 ; Psoriasis 696.1 and MICKY (secretory otitis media) 381.[address] [facility] [address] [id number] [place] [id number] Sep, Dental examination V72.2 [facility] [id number] [place] [address] 6[address]34- 0497 Sep, Fatigue 780.79 ; Irritable bowel syndrome 564.1 ; Overweight 278.02 ; Poor sleep V69.4 ; Shaking spells 781.0 and Broken tooth 873.63 [facility] [id number] [place] [address] 88471- 0273 Sep, [facility] [id number] [place] [address] 07471- 1543 Sep, [facility] [id number] [place] [address] 63144- 2995 Aug, [facility] [id number] [place] [address] 46603- 4171 Jul, [facility] [id number] [place] [address] 51909- 8352 Jul, [facility] [id number] [place] [address] 99678- 5025 Jul, [facility] [address] [address] [place] [address] 0237 Jul, [facility] [address] [facility] [id number] [place] [address]- 3184 June, Arthritis of knee, right 716.96 [facility] [address] [id number] [place] [address]- 4536 June, [facility] [address] [facility] [id number] [place] [address]- 0478 June, Elevated blood pressure reading without diagnosis of hypertension 796.2 [facility] [address] [id number] [place] [address]- 7737 June, [facility] [address] [id number] [address] 7511 June, [facility] [id number] [address]- 2378 June, [facility] [address] [id number] [address]- 3597 June, [facility] [address] [id number] [address]- 9196 May, [facility] [address] [id number] [address]- 6028 May, [facility] [address] [id number] [address]- 6916 Apr, [facility] [address] [id number] [address]- 0956 Apr, [facility] [address] [id number] [place] [address]- 8878 Apr, [facility] [address] [facility] [id number] [place] [address]- 3628 Apr, [facility] [address] [id number] [address]- 7219 Apr, [facility] [address] [facility] [id number] [place] [address]- 6684 Apr, [facility] [place] [facility] [address] [id number] [place] [address]- 1002 Apr, 2014 [facility] [place] [facility] [address] [id number] [place] [address]- 7116 Apr, 2014 [facility] [place] [facility] [address] [facility] [id number] [place] [address]- 9834 Apr, 2014 [facility] [place] [facility] [address] [id number] [place] [address]- 3824 Apr, 2014 [facility] [place] [facility] [address] [id number] [place] [address]- 8064 Apr, 2014 [facility] [place] [facility] [address] [facility] [id number] [place] [address]- 9325 Apr, 2014 [facility] [place] [facility] [address] [facility] [id number] [place] [address]- 0816 24 Apr, 2014 [facility] [place] [facility] [address] [facility] [id number] [place] [address]- 8905 24 Apr, 2014 [facility] [place] [facility] [address] [facility] [id number] [place] [address]- 5859 Apr, 2014 [facility] [place] [facility] [address] [facility] [id number] [place] [address]- 4773 Apr, 2014 [facility] [place] [facility] [address] [facility] [id number] [place] [address]- 9073 Apr, 2014 [facility] [place] [facility] [address] [facility] [id number] [place] [address]- 9457 Apr, 2014 [facility] [place] [facility] [address] [facility] [id number] [place] [address]- 4162 Apr, 2014 [facility] [place] [facility] [address] [facility] [id number] [place] [address]- 1934 18 Apr, 2014 [facility] [place] [facility] [address] [facility] [id number], [place] [address]- 1128 Apr, 2014 [facility] [place] [facility] [address] [id number] [place] [address]- 5946 Apr, 2014 [facility] [place] [facility] [address] [id number] [place] [address]- 2546 Apr, 2014 [facility] [place] [facility] [address] [facility] [id number] [place] [address]- 1456 Apr, 2014 [facility] [place] [facility] [address] [id number] [place] [address]- 7506 Apr, 2014 [facility] [place] [facility] [address] [id number] [place] [address]- 9832 Apr, 2014 [facility] [place] [facility] [address] [id number] [place] [address]- 7688 Apr, 2014 [facility] [place] [facility] [address] [facility] [id number] [place] [address]- 7802 Apr, 2014 [facility] [place] [facility] [address] [facility] [id number] [place] [address]- 4157 Apr, 2014 [facility] [place] [facility] [address] [facility] [id number] [place] [address]- 4875 Apr, 2014 [facility] [place] [facility] [address] [facility] [id number] [place] [address]- 5182 Apr, 2014 [facility] [place] [facility] [address] [facility] [id number] [place] [address] 2545 Apr, 2014 [facility] [place] [facility] [address] [facility] [id number] [place] [address]- 2547 Apr, 2014 [facility] [place] [facility] [address] [id number] [place] [address]- 1080 Mar, [facility] [place] [facility] [address] [facility] [id number] [place] [address]- 7217 Mar, [facility] [place] [facility] [address] [facility] [id number] [place] [address]- 6981 Mar, [facility] [place] [facility] [address] [id number] [place] [address]- 6436 Mar, [facility] [place] [facility] [address] [id number] [place] [address]- 9364 Mar, [facility] [place] [facility] [address] [id number] [place] [address]- 1456 Mar, [facility] [place] [facility] [address] [id number] [place] [address]- 9558 Mar, [facility] [place] [facility] [address] [id number] [place] [address]- 3933 Mar, [facility] [place] [facility] [address] [id number] [place] [address]- 3896 Mar, [facility] [place] [facility] [address] [id number] [place] [address]- 8480 Mar, [facility] [place] [facility] [address] [id number] [place] [address]- 0230 Jan, [facility] [place] [facility] [address] [id number] [place] [address]- 8170 Jan, [facility] [place] [facility] [address] [id number] [place] [address]- 5639 Jan, [facility] [place] [facility] [address] [id number] [place] [address]- 2863 Jan, [facility] [place] [facility] [address] [id number] [place] [address]- 0792 Jan, [facility] [place] [facility] [address] [id number] [place] [address]- 8348 Jan, [facility] [place] [facility] [address] [id number] [place] [address]- 4363 Jan, [facility] [place] [facility] [address] [id number] [place] [address]- 3347 Jan, [facility] [place] [facility] [address] [id number] [place] [address]- 4336 05 Jan, 2014 [facility] [place] [facility] [address] [id number] [place] [address]- 6914 05 Jan, 2014 [facility] [place] [facility] [address] [id number] [place] [address]- 3785 Jan, [facility] [place] [facility] [address] [id number] [place] [address]- 4091 Jan, [facility] [place] [facility] [address] [id number] [place] [address]- 4893 Dec, [facility] [place] [facility] [address] [id number] [place] [address]- 8278 Dec, [facility] [place] [facility] [address] [id number] [place] [address]- 4238 Dec, [facility] [place] [facility] [address] [id number] [place] [address]- 4778 Dec, [facility] [place] [facility] [address] [id number] [place] [address]- 0943 Dec, [facility] [place] [facility] [address] [id number] [place] [address]- 8401 Dec, [facility] [place] [facility] [address] [facility] [id number] [place] [address]- 8251 Dec, [facility] [place] [facility] [address] [id number] [place] [address]- 0206 Dec, [facility] [place] [facility] [address] [id number], [place] [address]- 3133 Dec, [facility] [place] [facility] [address] [id number] [place] [address]- 6725 Dec, [facility] [place] [facility] [address] [id number] [place] [address]- 2246 Nov, [facility] [place] [facility] [address] [id number], [place] [address]- 7621 Nov, [facility] [place] [facility] [address] [id number] [place] [address]- 6608 27 Nov, 2013 [facility] [place] [facility] [address] [id number] [place] [address]- 6623 Nov, [facility] [place] [facility] [address] [id number] [place] [address]- 9987 Nov, [facility] [place] [facility] [address] [id number] [place] [address]- 1313 Nov, [facility] [place] [facility] [address] [id number] [place] [address]- 0620 Nov, [facility] [place] [facility] [address] [id number] [place] [address]- 8550 Nov, [facility] [place] [facility] [address] [id number] [place] [address]- 5589 Nov, [facility] [place] [facility] [address] [id number] [place] [address]- 0687 Nov, [facility] [place] [facility] [address] [id number] [place] [address]- 7134 Nov, [facility] [place] [facility] [address] [id number] [place] [address]- 8020 17 Nov, 2013 [facility] [place] [facility] [address] [id number] [place] [address]- 9874 14 Nov, 2013 [facility] [place] [facility] [address] [id number] [place] [address]- 7812 14 Nov, 2013 [facility] [place] [facility] [address] [id number] [place] [address]- 4096 10 Nov, 2013 [facility] [place] [facility] [address] [id number] [place] [address]- 0858 10 Nov, 2013 [facility] [place] [facility] [address] [id number] [place] [address]- 6434 08 Nov, 2013 [facility] [place] [facility] [address] [id number] [place] [address]- 1656 Nov, [facility] [place] [facility] [address] [id number] [place] [address]- 4022 Nov, [facility] [place] [facility] [address] [id number] [place] [address]- 3614 Nov, [facility] [place] [facility] [address] [id number] [place] [address]- 0752 Oct, [facility] [place] [facility] [address] [id number] [place] [address]- 5252 Oct, 2013 [facility] [place] [facility] [address] [id number] [place] [address]- 9041 Oct, [facility] [place] [facility] [address] [id number] [place] [address]- 1704 Oct, [facility] [place] [facility] [address] [id number] [place] [address]- 4383 Oct, [facility] [place] [facility] [address] [id number] [place] [address]- 3870 Oct, [facility] [place] [facility] [address] [id number] [place] [address]- 1300 Oct, [facility] [place] [facility] [address] [id number] [place] [address]- 8328 Oct, [facility] [place] [facility] [address] [id number], [place] [address]- 3726 Oct, [facility] [place] [facility] [address] [id number], [place] [address]- 7524 Oct, [facility] [place] [facility] [address] [id number] [place] [address]- 8989 Sep, [facility] [place] [facility] [address] [id number] [place] [address]- 5312 Sep, [facility] [place] [facility] [address] [id number] [place] [address]- 9222 Sep, [facility] [place] [facility] [address] [id number] [place] [address]- 2816 Sep, [facility] [place] [facility] [address] [id number] [facility] [place] [address]- 0735 Sep, [facility] [place] [facility] [address] [id number] [place] [address]- 5271 Sep, [facility] [place] [facility] [address] [id number] [place] [address]- 8788 Sep, [facility] [place] [facility] [address] [id number] [place] [address]- 4212 Sep, [facility] [place] [facility] [address] [id number] [place] [address]- 9025 Sep, [facility] [place] [facility] [address] [id number] [place] [address]- 0280 Sep, [facility] [place] [facility] [address] [id number] [place] [address]- 2849 Sep, [facility] [place] [facility] [address] [id number] [place] [address]- 9446 Sep, [facility] [place] [facility] [address] [id number] [place] [address]- 6390 Sep, [facility] [place] [facility] [address] [id number] [place] [address]- 8347 Sep, [facility] [place] [facility] [address] [id number] [place] [address]- 5275 Sep, [facility] [place] [facility] [address] [id number] [place] [address]- 5242 Sep, [facility] [place] [facility] [address] [id number] [place] [address]- 3054 Sep, [facility] [place] [facility] [address] [id number] [place] [address]- 7797 Sep, [facility] [place] [facility] [address] [id number] [place] [address]- 9926 Sep, [facility] [place] [facility] [address] [id number] [place] [address]- 9601 Sep, [facility] [place] [facility] [address] [id number] [place] [address]- 1208 Sep, [facility] [place] [facility] [address] [id number] [place] [address]- 9592 Sep, [facility] [place] [facility] [address] [id number] [place] [address]- 9633 Sep, [facility] [place] [facility] [address] [id number] [place] [address]- 1259 Sep, [facility] [place] [facility] [address] [id number] [place] [address]- 0682 Sep, [facility] [place] [facility] [address] [id number] [place] [address]- 1871 Aug, [facility] [place] [facility] [address] [id number] [place] [address]- 0207 Aug, [facility] [place] [facility] [address] [id number] [place] [address]- 6570 Aug, [facility] [place] [facility] [address] [id number] [place] [address]- 7087 Aug, [facility] [place] [facility] [address] [id number] [place] [address]- 4894 Aug, [facility] [place] [facility] [address] [id number] [place] [address]- 6921 Aug, [facility] [place] [facility] [address] [id number] [place] [address]- 9494 Aug, [facility] [place] [facility] [address] [id number] [place] [address]- 3351 Aug, [facility] [place] [facility] [address] [id number] [place] [address]- 9232 Aug, [facility] [place] [facility] [address] [id number] [place] [address]- 8031 Aug, [facility] [place] [facility] [address] [id number] [place] [address]- 1161 Aug, [facility] [place] [facility] [address] [id number] [place]17 Aug, [facility] [place] [facility] [address] [id number] [place] [address]- 5496 Aug, [facility] [place] [facility] [address] [id number] [place] [address]- 5792 Jul, [facility] [place] [facility] [address] [id number] [place] [address]- 5202 Jul, [facility] [place] [facility] [address] [id number] [place] [address]- 0798 Jul, [facility] [place] [facility] [address] [id number] [place] [address]- 1553 Jul, [facility] [place] [facility] [address] [id number] [place] [address]- 3017 Jul, [facility] [place] [facility] [address] [id number] [place] [address]- 9761 Jul, [facility] [place] [facility] [address] [id number] [place] [address]- 2334 Jul, [facility] [place] [facility] [address] [id number] [place] [address]- 0572 June, [facility] [place] [facility] [address] [id number] [place] [address]- 4421 June, [facility] [place] [facility] [address] [id number] [place] [address]- 7366 June, [facility] [place] [facility] [address] [id number] [place] [address]- 0240 June, [facility] [place] [facility] [address] [id number] [place] [address]- 3753 May, [facility] [place] [facility] [address] [id number] [place] [address]- 0295 May, [facility] [place] [facility] [address] [id number] [place] [address]- 5550 May, [facility] [place] [facility] [address] [id number] [place]4 May, [facility] [place] [facility] [address] [id number] [place] [address]- 7854 May, [facility] [place] [facility] [address] [id number] [place] [address]- 9360 May, [facility] [place] [facility] [address] [id number] [place] [address]- 0003 May, [facility] [place] [facility] [address] [id number] [place] [address]- 7118 May, [facility] [place] [facility] [address] [id number] [place] [address]- 8965 May, [facility] [place] [facility] [address] [id number] [place] [address]- 5888 May, [facility] [place] [facility] [address] [id number] [place] [address]- 5807 Apr, [facility] [place] [facility] [address] [id number] [place] [address]- 2058 Apr, [facility] [place] [facility] [address] [id number] [place] [address]- 4268 Apr, [facility] [place] [facility] [address] [id number] [place] [address]- 9247 Apr, [facility] [place] [facility] [address] [id number] [place] [address]- 7600 Apr, [facility] [place] [facility] [address] [id number] [place] [address]- 7538 Apr, [facility] [place] [facility] [address] [id number] [place] [address]- 3114 Apr, [facility] [place] [facility] [address] [id number] [place] [address]- 4051 Apr, [facility] [place] [facility] [address] [id number] [place] [address]- 5602 Apr, [facility] [place] [facility] [address] [id number] [place] [address]- 7746 Apr, [facility] [place] [facility] [address] [id number] [place] [address]- 6534 Mar, [facility] [place] [facility] [address] [id number] [place] [address]- 9668 Mar, [facility] [place] [facility] [address] [id number] [place] [address]- 7584 Mar, [facility] [place] [facility] [address] [id number] [place] [address]- 3125 Mar, [facility] [place] [facility] [address] [id number] [place] [address]- 4769 Mar, [facility] [place] [facility] [address] [id number] [place] [address]- 0960 Mar, [facility] [place] [facility] [address] [id number] [place] [address]- 0315 Jan, [facility] [place] [facility] [address] [id number] [place] [address]- 2943 Jan, [facility] [place] [facility] [address] [id number] [place] [address]- 9735 Jan, [facility] [place] [facility] [address] [id number] [place] [address]- 5856 Jan, [facility] [place] [facility] [address] [id number] [place] [address]- 3445 Jan, [facility] [place] [facility] [address] [id number] [place] [address]- 3491 Jan, [facility] [place] [facility] [address] [id number] [place] [address] Jan, [facility] [address] [id number] [place] [address] Jan, [facility] [place] [facility] [address] [id number] [id number] [address] Jan, [facility] [address] [id number] [place] [address] Dec, [facility] [place] [facility] [address] [id number] [place] [address] Dec, [facility] [address] [id number] [place] [address] Dec, [facility] [address] [id number] [place] [address] Dec, [facility] [address] [id number] [place] [address] Dec, [facility] [address] [id number] [place] [address] Dec, [facility] [address] [facility] [id number] [place] [address] Dec, [facility] [address] [facility] [id number] [place] [address] Dec, [facility] [place] [facility] [address] [id number] [place] [address] Dec, [facility] [place] [facility] [address] [id number] [place] [address] Dec, [facility] [place] [facility] [address] [id number] [place] [address] Dec, [facility] [place] [facility] [address] [id number] [place] [address] Nov, [facility] [place] [facility] [address] [id number] [place] [address]- [address] Nov, [facility] [place] [facility] [address] [id number] [place] [address]- [address] Nov, [facility] [place] [facility] [address] [id number] [place] [address]- [address] Nov, [facility] [place] [facility] [address] [id number] [place] [address] Nov, [facility] [place] [facility] [address] [id number] [place] [address] Oct, [facility] [place] [facility] [address] [id number] [place] [address] Oct, [facility] [place] [facility] [address] [id number] [place] [address] Sep, [facility] [place] [facility] [address] [id number] [place] [address] Aug, [facility] [place] [facility] [address] [id number] [place] [address] Aug, [facility] [place] [facility] [address] [id number] [place] [address] Aug, [facility] [place] [facility] [address] [id number], [place] [address] Aug, [facility] [place] [facility] [address] [id number], [place] [address] Jul, [facility] [place] [facility] [address] [id number], [place] [address] Jul, [facility] [place] [facility] [address] [id number] [place] [address] June, [facility] [place] [facility] [address] [id number], [place] [address] June, [facility] [place] [facility] [address] [id number], [place] [address] June, [facility] [place] [facility] [address] [id number], [place] [address] 08 May, 2012 [facility] [address] [facility] [id number] [place] [address] 04 May, 2012 [facility] [address] [facility] [id number] [place] [address] May, [facility] [id number] [address] 18 Apr, 2012 [facility] [address] [facility] [id number] [place] [address] 18 Apr, 2012 [facility] [address] [address] 15 Apr, 2012 [facility] [id number] [address] 14 Apr, 2012 [facility] [id number] [address] Apr, [facility] [id number] [address] 27 Apr, 2012 [facility] [id number] [address]- [address] 25 Apr, 2012 [facility] [id number] [address] Apr, [facility] [id number] [address] 21 Apr, 2012 [facility] [id number], [place] [address] 20 Apr, 2012 [facility] [place] [facility] [address] [facility] [id number] [place] [address]- [address]49 19 Apr, 2012 [facility] [place] [facility] [address] [id number], [place] [address] 07 Apr, 2012 [facility] [id number], [place] [address] 07 Apr, 2012 [facility] [address] [id number] [place] [address] Mar, [facility] [place] [facility] [address] [id number] [place] [address]- [address] Mar, [facility] [place] [facility] [address] [id number] [place] [address]- [address] Mar, [facility] [place] [facility] [address] [id number] [place] [address]- 45[address] Mar, [facility] [place] [facility] [address] [id number] [place] [address]- [address] Mar, [facility] [place] [facility] [address] [id number] [place] [address]- [address] Jan, [facility] [place] [facility] [address] [id number] [place] [address]- [address] Jan, [facility] [place] [facility] [address] [id number] [place] [address]- 15[address] Jan, [facility] [place] [facility] [address] [id number] [place] [address]- [address] Jan, [facility] [place] [facility] [address] [id number] [place] [address]- [address] 14 Jan, 2012 [facility] [place] [facility] [address] [address] [id number] [place] [address] Jan, [facility] [place] [facility] [address] [id number], [place] [address] 13 Jan, 2012 [facility] [place] [facility] [address] [id number] [place] [address] 11 Jan, 2012 [facility] [place] [facility] [address] [id number] [place] [address] 06 Jan, 2012 [facility] [place] [facility] [address] [id number] [place] [address] 06 Jan, 2012 [facility] [place] [facility] [address] [id number], [place] [address] 04 Jan, 2012 [facility] [place] [facility] [address] [id number] [place] [address] Jan, [facility] [place] [facility] [address] [id number], [place] [address] Jan, [facility] [place] [facility] [address] [facility] [id number] [place] [address] Jan, [facility] [place] [facility] [address] [id number] [place] [address] Dec, [facility] [place] [facility] [address] [id number] [place] [address], [place] [address]- [address]13 26 Jan, 2012 [facility] [place] [facility] [address] [id number] [place] [address] Dec, [facility] [place] [facility] [id number], [place] [address] 19 Jan, 2012 [facility] [place] [facility] [address] [id number], [place] [address] 15 Jan, 2012 [facility] [place] [facility] [address] [id number] [address] 15 Jan, 2012 [facility] [place] [facility] [address] [id number], [place] [address] 14 Jan, 2012 [facility] [place] [facility] [address] [id number], [place] [address]- [address] 14 Jan, 2012 [facility] [place] [facility] [address] [id number], [place] [address] 14 Jan, 2012 [facility] [place] [facility] [address] [id number], [place] [address] 2060 14 Jan, 2012 [facility] [place] [facility] [address] [facility] [id number], [place] [address] 07 Jan, 2012 [facility] [place] [facility] [address] [id number], [place] [address] 07 Jan, 2012 [facility] [place] [facility] [address] [id number] [place] [address] 2542 16 Dec, 2011 [facility] [place] [facility] [address] [id number] [place] [address]- 8746 16 Dec, 2011 [facility] [place] [facility] [address] [id number] [place] [address] 3186 13 Nov, 2011 [facility] [place] [facility] [address] [id number] [place] [address]- [address]396 13 Nov, 2011 [facility] [place] [facility] [address] [id number] [place] [address]- 7708 13 Nov, 2011 [facility] [place] [facility] [address] [id number] [place] [address]- 3926 12 Nov, 2011 [facility] [place] [facility] [address] [id number] [place] [address]- 4772 30 Oct, 2011 [facility] [place] [facility] [address] [id number] [place] [address]- 7698 Sep, [facility] [place] [facility] [address] [id number] [place] [address]30 Aug, [facility] [place] [facility] [address] [id number] [place] [address]- 6746 Aug, [facility] [place] [facility] [address] [id number] [place] [address] 1478 Aug, [facility] [place] [facility] [address] [id number] [place] [address]- 5895 Aug, [facility] [place] [facility] [address] [id number] [place] [address]- 9377 June, [facility] [place] [facility] [address] [id number] [place] [address]006 June, [facility] [place] [facility] [address] [id number] [place] [address] May, [facility] [place] [facility] [address] [id number] [place] [address]- [address] Apr, [facility] [place] [facility] [address] [id number] [place] [address]- 9[address] Apr, [facility] [place] [facility] [address] [id number] [place] [address]- 2906 Apr, [facility] [place] [facility] [address] [id number] [place] [address]- 2224 Apr, [facility] [place] [facility] [address] [id number] [place] [address]- 9220 Apr, [facility] [place] [facility] [address] [id number] [place] [address]- 2561 Apr, [facility] [place] [facility] [address] [id number] [place] [address]- [address] Mar, [facility] [place] [facility] [address] [id number] [place] [address]- 2632 Mar, [facility] [place] [facility] [address] [id number] [place] [address]- 2804 Mar, [facility] [place] [facility] [address] [id number] [place] [address]- 1166 Jan, [facility] [place] [facility] [address] [id number] [place] [address]- 3770 Jan, [facility] [place] [facility] [address] [id number] [place] [address]- 6683 Jan, [facility] [place] [facility] [address] [id number] [place] [address]- 8663 Jan, [facility] [place] [facility] [address] [id number] [place] [address]- 9356 Jan, [facility] [place] [facility] [address] [id number] [place] [address]- 1527 Jan, [facility] [place] [facility] [address] [id number] [place] [address]- 5585 Jan, [facility] [place] [facility] [address] [id number] [place] [address]- 8593 Dec, [facility] [address] [id number] [place] [address]- 9737 Dec, [facility] [place] [facility] [address] [id number] [place] [address]- 8818 Nov, [facility] [place] [facility] [address] [id number] [place] [address]- 8644 Nov, [facility] [place] [facility] [address] [id number] [place] [address]- 5378 Nov, [facility] [place] [facility] [address] [id number] [place] [address]- 4369 Nov, [facility] [place] [facility] [address] [id number] [place] [address]- 9030 Oct, [facility] [place] [facility] [address] [id number] [place] [address]- 6000 Sep, [facility] [place] [facility] [address] [id number] [place] [address] Mar, [facility] [place] [facility] [address] [id number] [place] [address]- 9129 Jan, [facility] [place] [facility] [address] [id number] [place] [address]- 0608 Dec, [facility] [place] [facility] [address] [id number] [place] [address]- 8280 Dec, [facility] [place] [facility] [address] [id number] [place] [address]- [address]56 Dec, [facility] [place] [facility] [address] [id number] [place] [address]- 5634 Dec, [facility] [place] [facility] [address] [id number] [place] [address]- [address] Nov, [facility] [place] [facility] [address] [id number] [place] [address]- 3884 15 Nov, 2009 [facility] [place] [facility] [address] [id number] [place] [address]- 8478 14 Nov, 2009 [facility] [place] [facility] [address] [id number] [place] [address]- 8751 14 Nov, 2009 [facility] [place] [facility] [address] [id number] [place] [address]- 8480 13 Oct, 2009 [facility] [place] [facility] [address] [id number] [place] [address]- 7337 17 Jul, 2009 [facility] [address] [id number] [place] [address]- 5839 17 Jun, 2009 [facility] [place] [facility] [address] [id number] [place] [address]- 6784 June, [facility] [address] [facility] [id number], [place] [address]- [address] 17 Apr, 2009 [facility] [address] [id number], [place] [address]- 4739 Mar, [facility] [place] [facility] [address] [id number], [place] [address]- 1649 Jan, [facility] [place] [facility] [address] [id number], [place] [address]- 1190 Jan, [facility] [place] [facility] [address] [id number], [place] [address]- 2894 27 Dec, 2008 [facility] [place] [facility] [address] [id number], [place] [address]- 1464 25 Dec, 2008 [facility] [place] [facility] [address] [id number], [place] [address]- 5564 Dec, [facility] [place] [facility] [address] [id number], [place] [address]- 7317 13 Dec, 2008 [facility] [place] [facility] [address] [facility] [id number][place] [address] 30 Nov, 2008 [facility] [place] [facility] [address] [id number], [place] [address]- [address] Jul, [facility] [address] [facility] [id number] [place] [address] June, IMMUNIZATIONS No Known Immunizations SOCIAL HISTORY Never Assessed REASON FOR VISIT Controlled Medication Refill- Due 01/06 PLAN OF CARE VITAL SIGNS MEDICATIONS Medication [...]
--- OUTSIDE RECORDS SUMMARY | 2018-02-26 19:45 | XMS REPORT ---
Author Author CHRIS STEVENSON [facility] Address [address] [place] [address] Care Team Providers Care Chief Clerk Shelter Name Role Phone GRAHAMELLIOTT HANNAHANY Unavailable PROBLEMS Type Condition ICD9-CM Code NMX46-TI Code Onset Dates Condition Status SNOMED Code Problem Pulmonary asbestosis J61 Active 71612199 Problem Left ventricular diastolic dysfunction I51.9 Active 588706277 Problem Renal cyst, left N28.1 Active 60317397 Problem History of weight loss surgery Z98.84 Active 275519856 Problem Nocturnal hypoxia G47.34 Active 899989110 Problem Obstructive sleep apnea syndrome G47.33 Active 17552226 Problem Nephrolithiasis N20.0 Active 81143108 Problem Allergic rhinitis, unspecified allergic rhinitis type J30.9 Active 74417229 Problem 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 Active 04681653 Problem History of diverticulitis Z87.19 Active 329464248013361 Problem Hammertoe of left foot M20.42 Active 501223287 Problem Erectile dysfunction due to diseases classified elsewhere N52.1 Active 912506109 Problem Anxiety F41.9 Active 70763737 Problem Psoriasis L40.9 Active 7043970 Problem Essential hypertension I10 Active 48037375 Problem Moderate episode of recurrent major depressive disorder F33.1 Active 129928669 Problem Chronic prescription opiate use Z79.899 Active 914347218 Problem Acute right-sided low back pain with right-sided sciatica M54.41 Active 219560460 Problem Benign prostatic hyperplasia, presence of lower urinary tract symptoms unspecified, unspecified morphology N40.0 Active 650628775 Problem Low back pain M54.5 Active 509377560 Problem Cervicalgia M54.2 Active 1430567488615 Problem Urge incontinence N39.41 Active 772442912 Problem Age-related osteoporosis without current pathological fracture M81.0 Active 90601601 Problem Esophageal stricture K22.2 Active 20914815 Problem Chronic gout, unspecified cause, unspecified site M1A.9XX0 Active 25778393 Problem Primary insomnia F51.01 Active 079274995 Problem Hyperlipidemia, unspecified E78.5 Active 38407043 ALLERGIES No Information ENCOUNTERS Encounter Location Date Diagnosis [facility] [id number] [place] [address] 46047- 2389 Mar, [facility] [id number] [place] [address] 23072- 2161 Jan, [facility] [address] 76250- 5242 Dec, [facility] [address] 35341- 9954 Dec, [place] [address] 09044- 9906 Dec, Encounter for immunization Z23 [facility] [address] 07743 -2204 Dec, [facility] [id number] [place] [address] 43150- 0142 Dec, Hammertoe of left foot M20.42 ; Edema of left foot R60.0 and Onychomycosis B35.1 [facility] [id number] [place] [address] 33325 -3109 Nov, BMI 50.0-59.9, adult Z68.43 [facility] [id number] [place] [address] 58382- 3814 Nov, [facility] [id number] [place] [address] 41540- 7699 Nov, [facility] [address] 73340- 9571 Nov, Anxiety F41.9 [facility] [id number] [place] [address] 41920- 4618 Oct, [facility] [address] 98005- 2588 Oct, [facility] [id number] [place] [address] 59877- 6204 Oct, BMI 45.0-49.9, adult Z68.42 ; Essential hypertension I10 ; Hyperlipidemia, unspecified E78.5 ; Anxiety F41.9 ; Obstructive sleep apnea syndrome G47.33 ; Moderate episode of recurrent major depressive disorder F33.1 ; Left ventricular diastolic dysfunction I51.9 ; Acute pain of right shoulder M25.511 ; Pain of left foot M79.672 and Pain in right foot M79.671 [facility] [id number] [place] [address] 02452- 3928 Oct, Anxiety F41.9 [facility] [id number] [place] [address] 36281 -7854 Sep, Left foot pain M79.672 [facility] [id number] [place] [address] 02009- 7500 Sep, [facility] [id number] [place] [address] 46039- 6266 Sep, Anxiety F41.9 [facility] [id number] [place] [address] 97137- 4796 Sep, [facility] [id number] [place] [address] 92369- 2966 Aug, [facility] [id number] [place] [address] 68975- 2461 Aug, [facility] [id number] [place] [address] 23200- 7882 Aug, Anxiety F41.9 [facility] [id number] [place] [address] 55992- 6713 Aug, [facility] [id number] [place] [address] 66545- 4671 Jul, [facility] [id number] [place] [address] 03632- 8073 Jul, Anxiety F41.9 [facility] [address] 47107- 9366 June, Anxiety F41.9 [facility] [address] 82668- 4168 June, [facility] [address] 61688- 5951 June, Low back pain M54.5 ; Chronic prescription opiate use Z79.899 ; Candidal intertrigo B37.2 ; Urge incontinence N39.41 ; Essential hypertension I10 ; Moderate episode of recurrent major depressive disorder F33.1 ; Age-related osteoporosis without current pathological fracture M81.0 and BMI 45.0-49.9, adult Z68.42 [facility] [address] 57825- 6176 June, [facility] [address] 62843- 8449 May, Anxiety F41.9 [facility] [address] 61618- 1975 May, [facility] [id number] [place] [address] 46472- 1269 May, [facility] [id number] [place] [address] 54311- 6947 Apr, Anxiety F41.9 [facility] [id number] [place] [address] 75167- 7016 Apr, [facility] [address] 17744- 4911 Apr, Low back pain M54.5 [facility] [id number] [place] [address] 00334- 8580 Apr, [facility] [address] 87746- 9927 Apr, [facility] [id number] [place] [address] 77519- 6119 Apr, Anxiety F41.9 [place] [address] 73870- 2283 Apr, Right groin pain R10.31 [place] [address] 75855- 3721 Mar, [facility] [address] 45120- 4757 Mar, [place] [address] 90512- 6075 Mar, Anxiety F41.9 [place] [address] 72169- 5302 Mar, Low back pain M54.5 [place] [address] 41097- 8755 Mar, Right groin pain R10.31 ; Low back pain M54.5 and BMI 45.0- 49.9, adult Z68.42 [place] [address] 69311- 8172 Mar, [place] [id number] [place] [address] 38571- 9494 Mar, [place] [id number] [place] [address] 76818- 1805 Mar, [facility] [id number] [place] [address] 55746 -7908 Mar, [facility] [address] 18171 -4073 Mar, Cough R05 ; Pneumonia of right lower lobe due to infectious organism J18.1 and Abnormal chest x-ray R93.8 [place] [address] 21723- 2937 Mar, [facility] [id number] [place] [address] 04125- 6042 Mar, [facility] [id number] [place] [address] 22207- 0877 Jan, Anxiety F41.9 [facility] [id number] [place] [address] 84654- 3782 Jan, [facility] [id number] [place] [address] 41667- 4837 Jan, Moderate episode of recurrent major depressive disorder F33.1 [facility] [id number] [place] [address] 38378- 6515 Jan, Subacromial bursitis of right shoulder joint M75.51 ; Shortness of breath on exertion R06.02 and BMI 45.0-49.9, adult Z68.42 [facility] [id number] [place] [address] 39401- 4012 Dec, Anxiety F41.9 [facility] [id number] [place] [address] 07498- 2054 Dec, [facility] [id number] [place] [address] 13378- 4464 Dec, Low back pain M54.5 [facility] [id number] [place] [address] 99909- 6979 Oct, Low back pain M54.5 [facility] [id number] [place] [address] 25711- 3923 Sep, [facility] [id number] [place] [address] 09745- 8617 Sep, Erectile dysfunction due to diseases classified elsewhere N52.1 [facility] [id number] [place] [address] 05726- 3231 Sep, Erectile dysfunction due to diseases classified elsewhere N52.1 [facility] [id number] [place] [address] 91930- 6275 Sep, [facility] [id number] [place] [address] 87334- 5145 Sep, Erectile dysfunction due to diseases classified elsewhere N52.1 [facility] [id number] [place] [address] 67004- 7667 02 Sep, 2016 Low back pain M54.5 and Anxiety F41.9 [facility] [address] 71874 -9449 Aug, Acute allergic rhinitis J30.9 [facility] [address] 87128- 9401 Aug, [facility] [address] 99658- 7912 Aug, Anxiety F41.9 [facility] [address] 58608- 9189 15 Jul, 2016 Low back pain M54.5 ; Chronic prescription opiate use Z79.899 and Essential hypertension I10 [facility] [address] 87912- 6212 Jul, Anxiety F41.9 and Low back pain M54.5 [facility] [id number] [place] [address] 76379- 5291 June, [facility] [id number] [place] [address] 31290- 1206 June, Anxiety F41.9 [facility] [id number] [place] [address] 99308- 5471 May, Low back pain M54.5 [facility] [id number] [place] [address] 97790- 1809 May, [facility] [id number] [place] [address] 62147- 1601 May, Anxiety F41.9 [facility] [id number] [place] [address] 16244- 5087 Apr, [place] [id number] [place] [address] 05364- 3314 24 Apr, 2016 Low back pain M54.5 [facility] [id number] [place] [address] 71441- 1961 Apr, Moderate episode of recurrent major depressive disorder F33.1 [place] [address] 47483- 2105 06 Apr, 2016 Anxiety F41.9 [place] [id number] [place] [address] 97166- 5403 Apr, Low back pain M54.5 [place] [id number] [place] [address] 72275- 4538 15 Apr, 2016 Elevated alkaline phosphatase level R74.8 [place] [id number] [place] [address] 71870- 5287 10 Apr, 2016 Alkaline phosphatase elevation R74.8 [place] [id number] [place] [address] 12227- 9745 06 Apr, 2016 Anxiety F41.9 [place] [id number] [place] [address] 39270- 4079 Apr, Low back pain M54.5 [place] [id number] [place] [address] 61799- 6590 Apr, History of weight loss surgery Z98.84 ; Encounter for hepatitis C screening test for low risk patient Z11.59 ; History of herpes genitalis Z86.19 ; Essential hypertension I10 ; Hyperlipidemia, unspecified E78.5 ; Exposure to STD Z20.2 and Benign prostatic hyperplasia, presence of lower urinary tract symptoms unspecified, unspecified morphology N40.0 [place] [id number] [place] [address] 36537- 3849 Apr, [place] [address] [address]- 2495 Mar, [facility] [id number] [place] [address] 88795- 2258 Mar, [facility] [id number] [place] [address] 47758- 2701 Mar, [facility] [id number] [place] [address] 30461- 7164 Mar, Acute right-sided low back pain with right-sided sciatica M54.41 [place] [id number] [place] [address] 98103- 8519 Mar, Low back pain M54.5 [facility] [id number] [place] [address] 81080 -1194 Mar, Muscle strain of chest wall, initial encounter S29.011A ; Muscle strain of right thigh, initial encounter S76.911A and Acute non- recurrent maxillary sinusitis J01.00 [place] [id number] [place] [address] 14684- 3427 Mar, Benign prostatic hyperplasia, presence of lower urinary tract symptoms unspecified, unspecified morphology N40.0 [place] [id number] [place] [address] 85575- 8137 Jan, Low back pain M54.5 [facility] [id number] [place] [address] 64907- 5140 Jan, Low back pain M54.5 ; Essential hypertension I10 ; Hyperlipidemia, unspecified E78.5 ; Anxiety F41.9 ; Moderate episode of recurrent major depressive disorder F33.1 ; Primary insomnia F51.01 ; Exposure to STD Z20.2 ; Encounter for hepatitis C screening test for low risk patient Z11.59 and History of herpes genitalis Z86.19 [facility] [address] [place] [address] 70190- 7147 17 Jan, 2016 [facility] [id number] [place] [address] 91022- 2114 Nov, [facility] [id number] [place] [address] 50555- 1243 Nov, Anxiety F41.9 ; Cervicalgia M54.2 ; Moderate episode of recurrent major depressive disorder F33.1 and Encounter for immunization Z23 [facility] [id number] [place] [address] 56692- 3240 Oct, [facility] [address] 65047- 8893 Oct, [facility] [address] 26938- 9365 Oct, [facility] [address] 27712- 7022 Oct, [facility] [id number] [place] [address] 95712- 1302 Sep, [facility] [address] 52322- 4287 Aug, Low back pain M54.5 ; Anxiety F41.9 ; Primary insomnia F51.01 and Chronic prescription opiate use Z79.899 [facility] [id number] [place] [address] 99206- 4820 Jul, [facility] [id number] [place] [address] 74660- 0014 Jul, [facility] [id number] [place] [address] 89868- 4850 Jul, [facility] [id number] [place] [address] 48034- 0126 Jul, [facility] [address] 28827- 9677 Jul, [facility] [id number] [place] [address] 47972- 9603 June, [facility] [address] [place] [address]- 7111 June, [facility] [id number] [place] [address] 99419- 4179 June, [facility] [id number] [place] [address] 60267- 3557 June, [facility] [id number] [place] [address] 51806- 8247 May, Preoperative cardiovascular examination Z01.810 [facility] [id number] [place] [address] 26014- 3079 May, [facility] [id number] [place] [address] 01962- 8161 Apr, [facility] [id number] [place] [address] 28757- 3856 Apr, Osteoarthritis of right knee M17.9 [facility] [id number] [place] [address] 17710- 1491 Apr, [facility] [id number] [place] [address] 74032- 2719 Apr, [facility] [id number] [place] [address] 82486- 6614 Apr, [facility] [id number] [place] [address] 69883- 9715 Apr, [facility] [id number] [place] [address] 62936- 8917 Apr, History of excessive cerumen Z78.9 ; Obstructive sleep apnea syndrome G47.33 ; History of diverticulitis Z87.19 and Nephrolithiasis N20.0 [facility] [address] [place] [address] 87920- 9987 Apr, [facility] [address] [address] -5368 Apr, Abdominal pain R10.9 [facility] [id number] [place] [address] 75716- 1722 10 Apr, 2015 [facility] [id number] [place] [address] 12159- 9344 04 Apr, 2015 Osteoarthritis of right knee M17.9 [facility] [id number] [place] [address] 57681- 2035 Mar, [facility] [address] 83916- 6190 Mar, [facility] [id number] [place] [address] 15878- 5690 Mar, [place] [id number] [place] [address] 41512- 9101 Mar, [facility] [id number] [place] [address] 47176 -9337 Mar, Pyelonephritis N12 ; Left-sided thoracic back pain M54.6 ; Hematuria, unspecified R31.9 and Kidney stone N20.0 [facility] [id number] [place] [address] 84521- 9146 Mar, History of weight loss surgery Z98.84 [place] [id number] [place] [address] 40839- 3748 Mar, History of weight loss surgery Z98.84 and Hyperlipidemia, unspecified E78.5 [facility] [id number] [place] [address] 33107- 7556 Mar, Low back pain M54.5 ; Chronic prescription opiate use Z79.899 ; Hyperlipidemia, unspecified E78.5 ; Spasm of back muscles M62.830 and History of weight loss surgery Z98.84 [facility] [id number] [place] [address] 28972- 3879 Jan, [facility] [id number] [place] [address] 66187- 8224 Jan, [place] [address] [address]- 3663 Jan, [facility] [id number] [place] [address] 47541- 3236 Dec, [facility] [id number] [place] [address] 05421- 7662 Dec, [facility] [id number] [place] [address] 03295- 6240 Dec, [facility] [id number] [place] [address] 87221- 7055 Nov, [facility] [id number] [place] [address] 00750- 9983 Nov, Obstructive sleep apnea syndrome G47.33 and Pharyngoesophageal dysphagia R13.14 [facility] [id number] [place] [address] 11461- 2532 Nov, [facility] [id number] [place] [address] 98996- 0330 Nov, [facility] [id number] [place] [address] 75433- 9951 Nov, [facility] [address] [id number] 30 Oct, 2014 Dental examination V72.2 [facility] [id number] [place] [address] 60167- 5961 Oct, [facility] [address] [place] [address] 05223- 4577 Oct, [facility] [id number] [place] [address] 57833- 5609 Oct, [facility] [id number] [place] [address] 20662- 0180 Oct, [facility] [id number] [place] [address] 57694- 5728 Oct, BPH (benign prostatic hyperplasia) 600.00 and Urinary frequency 788.41 [facility] [id number] [place] [address] 60640- 2109 Oct, [facility] [id number] [place] [address] 21164- 0124 Oct, [facility] [id number] [place] [address] 73878- 7161 Oct, [facility] [id number] [place] [address] 12616- 4203 Sep, Cerumen impaction 380.4 ; Cerumen debris on tympanic membrane 380.4 ; Psoriasis 696.1 and MICKY (secretory otitis media) 381.4 [facility] [id number] [place] [address] [id number] Sep, Dental examination V72.2 [facility] [id number] [place] [address] 06284- 9049 Sep, Fatigue 780.79 ; Irritable bowel syndrome 564.1 ; Overweight 278.02 ; Poor sleep V69.4 ; Shaking spells 781.0 and Broken tooth 873.63 [facility] [id number] [place] [address] 55615- 4461 Sep, [facility] [id number] [place] [address] 39221- 4580 Sep, [facility] [id number] [place] [address] 17448- 9382 Aug, [facility] [id number] [place] [address] 05026- 8420 Jul, [facility] [id number] [place] [address] 15703- 1237 Jul, [facility] [id number] [place] [address] 93540- 1819 Jul, [facility] [id number] [place] [address] 93560- 2307 Jul, [facility] [address] [id number] [address] June, Arthritis of knee, right 716.96 [facility] [address] [id number] [place] [address] June, [facility] [id number] [address] June, Elevated blood pressure reading without diagnosis of hypertension 796.2 [facility] [address] [id number] [place] [address] June, [facility] [id number] [address] June, [facility] [id number] [address] June, [facility] [id number] [address] June, [facility] [address] [id number] [address] 8258 May, [facility] [id number] [address] May, [facility] [id number] [address] Apr, [facility] [id number] [address] 8[address] Apr, [facility] [address] [id number] [address] 8516 Apr, [facility] [address] [facility] [id number] [address] Apr, [facility] [id number] [address] [address] Apr, [facility] [address] [id number] [address] 20 Apr, 2014 [facility] [place] [facility] [address] [id number] [place] [address] Apr, 2014 [facility] [place] [facility] [address] [id number] [place] [address] 9[address] 13 Apr, 2014 [facility] [place] [facility] [address] [id number] [place] [address] 4760 Apr, 2014 [facility] [place] [facility] [address] [id number] [place] [address]- 2381 06 Apr, 2014 [facility] [place] [facility] [address] [id number] [place] [address] 4862 Apr, 2014 [facility] [place] [facility] [address] [id number] [place] [address] 7300 Apr, 2014 [facility] [place] [facility] [address] [id number] [place] [address]- 4263 24 Apr, 2014 [facility] [place] [facility] [address] [id number] [place] [address]- 9101 24 Apr, 2014 [facility] [place] [facility] [address] [id number] [place] [address]- 2139 23 Apr, 2014 [facility] [place] [facility] [address] [id number] [place] [address]- 0181 23 Apr, 2014 [facility] [place] [facility] [address] [id number] [place] [address] 8009 20 Apr, 2014 [facility] [place] [facility] [address] [id number] [place] [address]- 8373 20 Apr, 2014 [facility] [place] [facility] [address] [id number] [place] [address]- 4124 18 Apr, 2014 [facility] [place] [facility] [address] [id number] [place] [address]- 3191 18 Apr, 2014 [facility] [place] [facility] [address] [id number] [place] [address]- 6795 Apr, 2014 [facility] [place] [facility] [address] [id number] [place] [address]- 6377 Apr, 2014 [facility] [place] [facility] [address] [facility] [id number] [place] [address]- 5196 Apr, 2014 [facility] [place] [facility] [address] [facility] [id number] [place] [address]- 1356 Apr, 2014 [facility] [place] [facility] [address] [facility] [id number] [place] [address]- 9133 Apr, 2014 [facility] [place] [facility] [address] [id number] [place] [address]- 8374 Apr, 2014 [facility] [place] [facility] [address] [facility] [id number] [place] [address]- 3159 Apr, 2014 [facility] [place] [facility] [address] [facility] [id number] [place] [address]- 6665 Apr, 2014 [facility] [place] [facility] [address] [facility] [id number] [place] [address]- 0735 Apr, 2014 [facility] [place] [facility] [address] [facility] [id number] [place] [address]- 9422 Apr, 2014 [facility] [place] [facility] [address] [facility] [id number] [place] [address]- 9810 Apr, 2014 [facility] [place] [facility] [address] [facility] 2001 [id number] [place] [address]- 6838 Apr, 2014 [facility] [place] [facility] [address] [facility] 2001 [id number] [place] [address]- 6148 Apr, 2014 [facility] [place] [facility] [address] [facility] [id number] [place] [address]- 6696 Mar, [facility] [place] [facility] [address] [facility] 2001 [id number] [place] [address]- 2282 Mar, [facility] [place] [facility] [address] [facility] [address] [id number] [address] Mar, [facility] [place] [facility] [address] [id number] [place] [address]- 4175 Mar, [facility] [address] [id number] [place] [address]- 3310 Mar, [facility] [place] [facility] [address] [id number] [place] [address]- 8037 Mar, [facility] [address] [id number] [place] [address]- 2792 Mar, [facility] [address] [id number] [place] [address]- 8021 Mar, [facility] [address] [id number] [place] [address]- 7708 Mar, [facility] [address] [id number] [place] [address]- 4210 Mar, [facility] [address] [id number] [place] [address]- 2498 Jan, [facility] [address] [id number] [place] [address]- 3930 Jan, [facility] [place] [facility] [address] [id number] [place] [address]- 1695 Jan, [facility] [place] [facility] [address] [id number] [place] [address]- 1057 Jan, [facility] [place] [facility] [address] [id number] [place] [address]- 7569 Jan, [facility] [place] [facility] [address] [id number] [place] [address]- 8662 Jan, [facility] [place] [facility] [address] [id number] [place] [address]- 4632 Jan, [facility] [place] [facility] [address] [id number] [place] [address]- 9451 Jan, [facility] [place] [facility] [address] [id number] [place] [address]- 8163 Jan, [facility] [place] [facility] [address] [id number] [place] [address]- 8901 Jan, [facility] [place] [facility] [address] [id number] [place] [address]- 4450 Jan, [facility] [place] [facility] [address] [id number] [place] [address]- 7516 Jan, [facility] [place] [facility] [address] [id number] [place] [address]- 1254 Dec, [facility] [place] [facility] [address] [id number] [place] [address]- 1392 Dec, [facility] [place] [facility] [address] [id number] [place] [address]- 6901 Dec, [facility] [place] [facility] [address] [id number] [place] [address]- 5272 Dec, [facility] [place] [facility] [address] [id number] [place] [address]- 9632 Dec, [facility] [place] [facility] [address] [id number] [place] [address]- 7819 Dec, [facility] [place] [facility] [address] [id number] [place] [address]- 2529 Dec, [facility] [place] [facility] [address] [id number] [place] [address]- 2629 Dec, [facility] [place] [facility] [address] [id number] [address]- 2811 Dec, [facility] [place] [facility] [address] [id number] [place] [address]- 6847 Dec, [facility] [place] [facility] [address] [id number] [place] [address]- 1336 Nov, [facility] [place] [facility] [address] [id number] [place] [address]- 4835 Nov, [facility] [place] [facility] [address] [id number] [place] [address]- 1516 Nov, 2013 [facility] [place] [facility] [address] [id number] [place] [address]- 2143 Nov, [facility] [place] [facility] [address] [id number] [place] [address]- 8675 Nov, [facility] [place] [facility] [address] [id number] [place] [address]- 0045 Nov, [facility] [place] [facility] [address] [id number] [place] [address]- 3653 Nov, [facility] [place] [facility] [address] [id number] [place] [address]- 7164 Nov, [facility] [place] [facility] [address] [id number] [place] [address]- 8264 Nov, [facility] [place] [facility] [address] [id number] [place] [address]- 9402 Nov, [facility] [place] [facility] [address] [id number] [place] [address]- 7414 Nov, [facility] [place] [facility] [address] [id number] [place] [address]- 0331 Nov, [facility] [place] [facility] [address] [id number] [place] [address]- 0806 Nov, [facility] [place] [facility] [address] [id number] [place] [address]- 4425 14 Nov, 2013 [facility] [place] [facility] [address] [id number] [place] [address]- 0719 10 Nov, 2013 [facility] [place] [facility] [address] [id number] [place] [address]- 9424 10 Nov, 2013 [facility] [place] [facility] [address] [id number] [place] [address]- 3717 08 Nov, 2013 [facility] [place] [facility] [address] [id number] [place] [address]- 2781 Nov, [facility] [place] [facility] [address] [id number] [place] [address]- 3892 Nov, [facility] [place] [facility] [address] [id number] [place] [address]- 2120 Nov, [facility] [place] [facility] [address] [id number] [place] [address]- 8448 Oct, [facility] [place] [facility] [address] [id number] [place] [address]- 4269 Oct, [facility] [place] [facility] [address] [id number] [place] [address]- 3527 Oct, [facility] [place] [facility] [address] [id number] [place] [address]- 2343 Oct, [facility] [place] [facility] [address] [id number] [place] [address]- 0702 Oct, [facility] [place] [facility] [address] [id number] [place] [address]- 9950 Oct, [facility] [place] [facility] [address] [id number] [place] [address]- 2979 Oct, [facility] [place] [facility] [address] [id number] [place] [address]- 2542 Oct, [facility] [place] [facility] [address] [id number] [place] [address]- 2766 Oct, [facility] [place] [facility] [address] [id number], [place] [address]- 6687 Oct, [facility] [place] [facility] [address] [id number] [place] [address]- 5818 Sep, [facility] [place] [facility] [address] [id number] [place] [address]- 9232 Sep, [facility] [place] [facility] [address] [id number] [place] [address]- 5940 Sep, [facility] [place] [facility] [address] [id number], [place] [address]- 5159 Sep, [facility] [place] [facility] [address] [id number] [place] [address]- 8607 Sep, [facility] [place] [facility] [address] [id number] [place] [address]- 2234 Sep, [facility] [place] [facility] [address] [id number] [place] [address]- 5797 Sep, [facility] [place] [facility] [address] [id number] [place] [address]- 1512 Sep, [facility] [place] [facility] [address] [id number] [place] [address]- 8839 Sep, [facility] [place] [facility] [address] [id number] [place] [address]- 7895 Sep, [facility] [place] [facility] [address] [id number] [place] [address]- 9428 Sep, [facility] [place] [facility] [address] [id number] [place] [address]- 3119 Sep, [facility] [place] [facility] [address] [id number] [place] [address]- 0818 Sep, [facility] [place] [facility] [address] [id number] [place] [address]- 7403 Sep, [facility] [place] [facility] [address] [id number] [place] [address]- 1881 Sep, [facility] [place] [facility] [address] [id number] [place] [address]- 1110 Sep, [facility] [place] [facility] [address] [id number] [place] [address]- 2464 Sep, [facility] [place] [facility] [address] [id number] [place] [address]- 8235 Sep, [facility] [place] [facility] [address] [id number] [place] [address]- 6526 Sep, [facility] [place] [facility] [address] [id number] [place] [address]- 0331 Sep, [facility] [place] [facility] [address] [id number] [place] [address]- 0550 Sep, [facility] [place] [facility] [address] [id number] [place] [address]- 0294 Sep, [facility] [place] [facility] [address] [id number] [place] [address]- 1871 Sep, [facility] [place] [facility] [address] [id number] [place] [address]- 5144 Sep, [facility] [place] [facility] [address] [id number] [place] [address]- 3887 Sep, [facility] [place] [facility] [address] [id number] [place] [address]- 7284 Aug, [facility] [place] [facility] [address] [id number] [place] [address]- 2273 Aug, [facility] [place] [facility] [address] [id number] [place] [address]- 2164 Aug, [facility] [place] [facility] [address] [id number] [place] [address]- 1033 Aug, [facility] [place] [facility] [address] [id number] [place] [address]- 1073 Aug, [facility] [place] [facility] [address] [id number] [place] [address]- 5795 Aug, [facility] [place] [facility] [address] [id number] [place] [address]- 5743 Aug, [facility] [place] [facility] [address] [id number] [place] [address]- 9974 Aug, [facility] [place] [facility] [address] [id number] [place] [address]- 8171 Aug, [facility] [place] [facility] [address] [id number] [place] [address]- 5938 Aug, [facility] [place] [facility] [address] [id number] [place] [address]- 8555 Aug, [facility] [place] [facility] [address] [id number] [place] [address]- 2943 Aug, [facility] [place] [facility] [address] [id number] [place] [address]- 5402 Aug, [facility] [place] [facility] [address] [id number] [place] [address]- 7365 Jul, [facility] [place] [facility] [address] [id number] [place] [address]- 5689 Jul, [facility] [place] [facility] [address] [id number] [place] [address]- 3247 Jul, [facility] [place] [facility] [address] [id number] [place] [address]- 2862 Jul, [facility] [place] [facility] [address] [id number] [place] [address]- 4876 Jul, [facility] [place] [facility] [address] [id number] [place] [address]- 2013 Jul, [facility] [place] [facility] [address] [id number] [place] [address]- 4202 Jul, [facility] [place] [facility] [address] [id number] [place] [address]- 3449 June, [facility] [place] [facility] [address] [id number], [place] [address]- 7562 June, [facility] [place] [facility] [address] [id number] [place] [address]- 1758 June, [facility] [place] [facility] [address] [id number] [place] [address]- 1656 June, [facility] [place] [facility] [address] [id number] [place] [address]- 2905 May, [facility] [place] [facility] [address] [id number] [place] [address]- 2571 May, [facility] [place] [facility] [address] [id number] [place] [address]- 3981 May, [facility] [place] [facility] [address] [id number] [place] [address]- 5394 May, [facility] [place] [facility] [address] [id number] [place] [address]- 6520 May, [facility] [place] [facility] [address] [id number] [place] [address]- 0985 May, [facility] [place] [facility] [address] [id number] [place] [address]- 7198 May, [facility] [place] [facility] [address] [id number] [place] [address]- 9132 May, [facility] [place] [facility] [address] [facility] [id number] [place] [address]- 8905 May, [facility] [place] [facility] [address] [facility] [address] [id number] [place] [address]- 7733 May, [facility] [place] [facility] [address] [id number] [place] [address]- 7448 Apr, [facility] [place] [facility] [address] [facility] [address] [id number] [place] [address]- 4250 Apr, [facility] [place] [facility] [address] [facility] [address] [id number] [place] [address]- 0339 Apr, [facility] [place] [facility] [address] [facility] [address] [id number] [place] [address]- 1531 Apr, [facility] [place] [facility] [address] [id number] [place] [address]- 1609 Apr, [facility] [place] [facility] [address] [facility] [address] [id number] [place] [address]- 2082 Apr, [facility] [place] [facility] [address] [facility] [address] [id number] [place] [address]- 3993 Apr, [facility] [address] [id number] [place] [address]- 9488 Apr, [facility] [place] [facility] [address] [id number] [place] [address]- 9697 Apr, [facility] [place] [facility] [address] [id number] [place] [address]- 7233 Apr, [facility] [place] [facility] [address] [id number] [place] [address]- 1668 Mar, [facility] [place] [facility] [address] [id number] [place] [address]- 5778 Mar, [facility] [place] [facility] [address] [id number] [place] [address]- 8447 Mar, [facility] [place] [facility] [address] [facility] [address] [id number] [place] [address]- 8391 Mar, [facility] [place] [facility] [address] [id number] [place] [address]- 1416 Mar, [facility] [place] [facility] [address] [facility] [address] [id number] [place] [address]- 2305 Mar, [facility] [place] [facility] [address] [facility] 2001 [id number] [place] [address]- 1744 Jan, [facility] [place] [facility] [address] [id number], [place] [address]- 2449 Jan, [facility] [place] [facility] [address] [id number], [place] [address]- 0575 Jan, [facility] [place] [facility] [address] [id number] [place] [address]- 8832 Jan, [facility] [place] [facility] [address] [id number], [place] [address]- 3022 Jan, [facility] [place] [facility] [address] [facility] [id number] [place] [address]- 6883 Jan, [facility] [place] [facility] [address] [id number] [place] [address]- 3714 03 Jan, 2013 [facility] [address] [id number] [place] [address]- 8851 Jan, [facility] [place] [facility] [address] [id number] [place] [address]- 4123 Jan, [facility] [address] [id number] [place] [address]- 8558 Dec, [facility] [place] [facility] [address] [id number] [place] [address]- 7218 Dec, [facility] [place] [facility] [address] [id number] [place] [address]- 3978 Dec, [facility] [place] [facility] [address] [id number] [place] [address]- 5132 Dec, [facility] [address] [id number] [place] [address]- 4547 Dec, [facility] [place] [facility] [address] [id number] [place] [address]- 5584 Dec, [facility] [place] [facility] [address] [id number] [place] [address]- 7842 Dec, [facility] [place] [facility] [address] [facility] [id number] [place] [address]- 9248 Dec, [facility] [place] [facility] [address] [id number] [place] [address]- 1733 Dec, [facility] [place] [facility] [address] [id number] [address] Dec, [facility] [place] [facility] [address] [id number] [place] [address] Dec, [facility] [place] [facility] [address] [id number] [place] [address] Nov, [facility] [place] [facility] [address] [id number] [address] Nov, [facility] [place] [facility] [address] [id number] [place] [address] Nov, [facility] [place] [facility] [address] [id number] [place] [address]681 Nov, [facility] [place] [facility] [address] [id number] [place] [address] Nov, [facility] [place] [facility] [address] [id number] [place] [address] Oct, [facility] [place] [facility] [address] [id number] [place] [address] Oct, [facility] [place] [facility] [address] [id number] [place] [address]672 Sep, [facility] [place] [facility] [address] [id number] [place] [address] 16[address] Aug, [facility] [place] [facility] [address] [id number] [place] [address] 1810 Aug, [facility] [place] [facility] [address] [id number] [place] [address]152 Aug, [facility] [place] [facility] [address] [id number] [place] [address]- 7239 Aug, [facility] [place] [facility] [address] [id number] [place] [address] Jul, [facility] [place] [facility] [address] [id number] [place] [address]- 8538 Jul, [facility] [place] [facility] [address] [id number] [place] [address]85 June, [facility] [place] [facility] [address] [id number] [place] [address] 4076 June, [facility] [place] [facility] [address] [id number] [place] [address] 1453 June, [facility] [place] [facility] [address] [id number] [place] [address]- 2846 08 May, 2012 [facility] [address] [id number] [place] [address]238 May, [facility] [address] [id number] [place] [address]40 May, [facility] [address] [facility] [address] [id number] [place] [address] 0641 18 Apr, 2012 [facility] [place] [facility] [address] [id number] [place] [address] 4870 18 Apr, 2012 [facility] [address] [id number] [place] [address] 3476 15 Apr, 2012 [facility] [address] [facility] 2001 [id number] [place] [address] 3664 14 Apr, 2012 [facility] [address] [facility] 2001 [id number] [place] [address]- 1322 Apr, [facility] [address] [facility] 2001 [id number] [place] [address] 8595 Apr, [facility] [address] [facility] 2001 [id number] [place] [address] 5204 Apr, [facility] [address] [facility] [address] [id number] [place] [address] 6306 Apr, [facility] [address] [facility] [address] [id number], [place] [address] Apr, [facility] [place] [facility] [address] [facility] [id number], [place] [address] 8441 20 Apr, 2012 [facility] [place] [facility] [address] [facility] 2001 [id number] [place] [address]- 9770 19 Apr, 2012 [facility] [place] [facility] [address] [facility] [address] [id number], [place] [address]85 07 Apr, 2012 [facility] [place] [facility] [address] [facility] [address] [id number] [address] 07 Apr, 2012 [facility] [place] [facility] [address] [id number] [place] [address]113 Mar, [facility] [address] [id number] [place] [address] 2553 Mar, [facility] [address] [id number] [place] [address]- 2926 16 Mar, 2012 [facility] [address] [id number] [place] [address]- 6279 Mar, [facility] [address] [id number] [place] [address]- 4042 Mar, [facility] [address] [id number] [place] [address] 38[address] Jan, [facility] [address] [id number] [place] [address] 9680 Jan, [facility] [address] [id number] [place] [address]- 0951 Jan, [facility] [address] [id number] [place] [address]- 1017 Jan, [facility] [address] [id number] [place] [address]- 4448 14 Jan, 2012 [facility] [address] [id number] [place] [address]- 9955 Jan, [facility] [address] [id number] [place] [address]- 9498 Jan, [facility] [place] [facility] [address] [id number] [place] [address]- 7581 11 Jan, 2012 [facility] [place] [facility] [address] [id number] [place] [address]- 7404 06 Jan, 2012 [facility] [place] [facility] [address] [id number] [place] [address]- [address] 06 Jan, 2012 [facility] [place] [facility] [address] [id number], [place] [address] 04 Jan, 2012 [facility] [place] [facility] [address] [id number] [place] [address]- 0607 04 Jan, 2012 [facility] [place] [facility] [address] [id number] [place] [address] 04 Jan, 2012 [facility] [place] [facility] [address] [facility] [id number] [place] [address]- 3190 Jan, [facility] [place] [facility] [address] [id number], [place] [address]- 2977 Dec, [facility] [place] [facility] [address] [id number] [place] [address]- 6527 26 Jan, 2012 [facility] [place] [facility] [address] [id number] [place] [address]- 2869 Dec, [facility] [place] [facility] [address] [id number] [place] [address]- 6335 19 Jan, 2012 [facility] [place] [facility] [address] [id number], [place] [address]- [address] 15 Jan, 2012 [facility] [place] [facility] [address] [id number][place] [address]- 8849 15 Jan, 2012 [facility] [place] [facility] [address] [id number], [place] [address]- 2684 14 Jan, 2012 [facility] [place] [facility] [address] [id number], [place] [address]- 2733 14 Jan, 2012 [facility] [place] [facility] [address] [id number], [place] [address]- 3024 14 Jan, 2012 [facility] [place] [facility] [address] [id number], [place] [address]- 1039 14 Jan, 2012 [facility] [place] [facility] [address] [id number], [place] [address]- 3712 07 Jan, 2012 [facility] [place] [facility] [address] [facility] [id number], [place] [address]- 9278 07 Jan, 2012 [facility] [place] [facility] [address] [id number] [place] [address]- 9456 16 Dec, 2011 [facility] [address] [id number] [place] [address] 16 Dec, 2011 [facility] [address] [id number] [place] [address] 13 Nov, 2011 [facility] [address] [id number] [place] [address] 13 Nov, 2011 [facility] [address] [id number] [place] [address] 13 Nov, 2011 [facility] [address] [id number] [place] [address] 12 Nov, 2011 [facility] [address] [id number] [place] [address] Sep, [facility] [address] [id number] [place] [address] Sep, [facility] [address] [id number] [place] [address] Aug, [facility] [address] [id number] [place] [address] Aug, [facility] [address] [id number] [place] [address] Aug, [facility] [place] [facility] [address] [id number] [place] [address] Aug, [facility] [address] [id number] [place] [address] June, [facility] [place] [facility] [address] [id number] [place] [address] June, [facility] [place] [facility] [address] [id number] [place] [address] May, [facility] [address] [id number] [place] [address] Apr, [facility] [address] [id number] [place] [address] Apr, [facility] [place] [facility] [address] [id number] [place] [address] Apr, [facility] [place] [facility] [address] [id number] [place] [address] 39[address] Apr, [facility] [place] [facility] [address] [id number] [place] [address] Apr, [facility] [place] [facility] [address] [id number] [place] [address] 65[address] Apr, [facility] [place] [facility] [address] [id number] [place] [address] Mar, [facility] [place] [facility] [address] [id number] [place] [address] 8566 Mar, [facility] [place] [facility] [address] [id number] [place] [address] Mar, [facility] [place] [facility] [address] [id number] [place] [address] Jan, [facility] [place] [facility] [address] [id number] [place] [address] Jan, [facility] [place] [facility] [address] [id number] [place] [address] 120[address] Jan, [facility] [place] [facility] [address] [id number] [place] [address] Jan, [facility] [place] [facility] [address] [id number] [place] [address] Jan, [facility] [place] [facility] [address] [id number] [place] [address] Jan, [facility] [place] [facility] [address] [id number] [place] [address]- [address] Jan, [facility] [place] [facility] [address] [id number] [place] [address]843 Dec, [facility] [place] [facility] [address] [id number] [place] [address] Dec, [facility] [place] [facility] [address] [id number] [place] [address] Nov, [facility] [place] [facility] [address] [id number] [place] [address] Nov, [facility] [place] [facility] [address] [id number] [place] [address]134 Nov, [facility] [place] [facility] [address] [id number] [place] [address], [place] [address]- [address] Nov, [facility] [place] [facility] [address] [id number] [place] [address]- [address]14 Oct, [facility] [place] [facility] [address] [id number] [place] [address] Sep, [facility] [place] [facility] [address] [id number] [place] [address] Mar, [facility] [place] [facility] [address] [id number] [place] [address] 16[address] Jan, [facility] [place] [facility] [address] [id number] [place] [address]- [address] Dec, [facility] [place] [facility] [address] [id number] [place] [address] 9816 Dec, [facility] [place] [facility] [address] [id number] [address] Dec, [facility] [place] [facility] [address] [id number] [place] [address] 24[address] Dec, [facility] [place] [facility] [address] [id number] [place] [address] Nov, [facility] [place] [facility] [address] [id number], [place] [address] 15 Nov, 2009 [facility] [place] [facility] [address] [id number] [place] [address]- [address] 14 Nov, 2009 [facility] [address] [id number] [place] [address] 14 Nov, 2009 [facility] [place] [facility] [address] [id number] [place] [address]46 13 Oct, 2009 [facility] [place] [facility] [address] [id number] [place] [address]- 67[address] 17 Jul, 2009 [facility] [place] [facility] [address] [id number] [place] [address]49 17 Jun, 2009 [facility] [place] [facility] [address] [id number] [place] [address] 1196 June, [facility] [address] [id number] [place] [address]- 8982 17 Apr, 2009 [facility] [place] [facility] [address] [id number] [place] [address]- 117[address] Mar, [facility] [address] [id number] [place] [address]- [address]341 24 Jan, 2009 [facility] [place] [facility] [address] [id number] [place] [address] Jan, [facility] [place] [facility] [address] [id number] [place] [address]- [address] 27 Dec, 2008 [facility] [place] [facility] [address] [id number] [place] [address]- [address]43 25 Dec, 2008 [facility] [place] [facility] [address] [id number] [place] [address]- 3552 13 Dec, 2008 [facility] [place] [facility] [address] [id number] [place] [address] 2546 13 Dec, 2008 [facility] [place] [facility] [address] [id number] [place] [address]- 4445 30 Nov, 2008 [facility] [place] [facility] [address] [id number] [place] [address] Jul, [facility] [address] [facility] [id number] [place] [address] June, IMMUNIZATIONS No Known Immunizations SOCIAL HISTORY Never Assessed REASON FOR VISIT Controlled Medication Refill PLAN OF CARE VITAL SIGNS MEDICATIONS Medication Instructions Dosage Frequency Start Date End Date Duration Status Endocet 10-325 MG Orally every 4-6 hours 1 tablet as needed Dec, 28 days Active Allopurinol 100 MG TAKE 1 TABLET BY MOUTH DAILY 30 Active RESULTS No Results PROCEDURES No [...]
--- OUTSIDE RECORDS SUMMARY | 2018-02-26 19:46 | XMS REPORT ---
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9 Active 14938102 Problem 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 Active 19614992 Problem History of diverticulitis Z87.19 Active 842240124132743 Problem Hammertoe of left foot M20.42 Active 370623446 Problem Erectile dysfunction due to diseases classified elsewhere N52.1 Active 539572571 Problem Anxiety F41.9 Active 52929368 Problem Psoriasis L40.9 Active 6011768 Problem Essential hypertension I10 Active 90434826 Problem Moderate episode of recurrent major depressive disorder F33.1 Active 882447083 Problem Chronic prescription opiate use Z79.899 Active 209847157 Problem Acute right-sided low back pain with right-sided sciatica M54.41 Active 191705437 Problem Benign prostatic hyperplasia, presence of lower urinary tract symptoms unspecified, unspecified morphology N40.0 Active 851299907 Problem Low back pain M54.5 Active 885935874 Problem Cervicalgia M54.2 Active 5861889218569 Problem Urge incontinence N39.41 Active 024550746 Problem Age-related osteoporosis without current pathological fracture M81.0 Active 42898267 Problem Esophageal stricture K22.2 Active 08584237 Problem Chronic gout, unspecified cause, unspecified site M1A.9XX0 Active 58012219 Problem Primary insomnia F51.01 Active 214472826 Problem Hyperlipidemia, unspecified E78.5 Active 37573329 ALLERGIES No Information ENCOUNTERS Encounter Location Date Diagnosis [facility] [id number] [place] [address] 04373- 5709 Mar, [facility] [id number] [place] [address] 66802- 3907 Jan, [facility] [address] 16147- 4121 Dec, [facility] [address] 94362- 4627 Dec, Encounter for immunization Z23 [facility] [address] 9[address] -5945 Dec, [place] [address] 85346- 4219 Dec, Hammertoe of left foot M20.42 ; Edema of left foot R60.0 and Onychomycosis B35.1 [facility] [address] [address] Nov, BMI 50.0-59.9, adult Z68.43 [facility] [id number] [place] [address] 66176- 4303 Nov, [facility] [id number] [place] [address] 15872- 7134 Nov, [facility] [id number] [place] [address] 79664- 6625 Nov, Anxiety F41.9 [facility] [id number] [place] [address] 84812- 1346 Oct, [facility] [id number] [place] [address] 25077- 0133 Oct, [facility] [address] 39970- 1238 Oct, BMI 45.0-49.9, adult Z68.42 ; Essential hypertension I10 ; Hyperlipidemia, unspecified E78.5 ; Anxiety F41.9 ; Obstructive sleep apnea syndrome G47.33 ; Moderate episode of recurrent major depressive disorder F33.1 ; Left ventricular diastolic dysfunction I51.9 ; Acute pain of right shoulder M25.511 ; Pain of left foot M79.672 and Pain in right foot M79.671 [facility] [id number] [place] [address] 89657- 3618 Oct, Anxiety F41.9 [facility] [id number] [place] [address] 78155 -1218 Sep, Left foot pain M79.672 [facility] [id number] [place] [address] 19169- 8189 Sep, [facility] [id number] [place] [address] 84150- 5096 Sep, Anxiety F41.9 [facility] [id number] [place] [address] 61906- 8674 Sep, [facility] [id number] [place] [address] 78362- 9425 Aug, [facility] [id number] [place] [address] 07044- 6234 Aug, [facility] [id number] [place] [address] 53053- 9463 Aug, Anxiety F41.9 [facility] [id number] [place] [address] 90391- 6688 Aug, [facility] [id number] [place] [address] 13764- 5665 Jul, [facility] [id number] [place] [address] 52623- 1401 Jul, Anxiety F41.9 [facility] [id number] [place] [address] 01075- 7024 June, Anxiety F41.9 [facility] [id number] [place] [address] 43118- 9653 June, [facility] [id number] [place] [address] 28655- 2046 June, Low back pain M54.5 ; Chronic prescription opiate use Z79.899 ; Candidal intertrigo B37.2 ; Urge incontinence N39.41 ; Essential hypertension I10 ; Moderate episode of recurrent major depressive disorder F33.1 ; Age-related osteoporosis without current pathological fracture M81.0 and BMI 45.0-49.9, adult Z68.42 [facility] [id number] [place] [address] 74278- 2855 June, [facility] [id number] [place] [address] 72843- 3992 May, Anxiety F41.9 [facility] [id number] [place] [address] 69928- 7415 May, [facility] [id number] [place] [address] 24816- 6810 May, [facility] [id number] [place] [address] 81412- 3714 Apr, Anxiety F41.9 [facility] [id number] [place] [address] 48907- 0320 Apr, [facility] [id number] [place] [address] 98530- 1524 Apr, Low back pain M54.5 [facility] [id number] [place] [address] 22241- 6292 Apr, [facility] [id number] [place] [address] 67760- 1515 Apr, [facility] [id number] [place] [address] 33577- 7590 Apr, Anxiety F41.9 [facility] [id number] [place] [address] 41068- 7980 Apr, Right groin pain R10.31 [facility] [id number] [place] [address] 05923- 7978 Mar, [facility] [id number] [place] [address] 54469- 9274 Mar, [facility] [id number] [place] [address] 41669- 5213 Mar, Anxiety F41.9 [facility] [address] 84920- 6764 Mar, Low back pain M54.5 [facility] [id number] [place] [address] 52638- 4117 Mar, Right groin pain R10.31 ; Low back pain M54.5 and BMI 45.0- 49.9, adult Z68.42 [facility] [id number] [place] [address] 15695- 6204 Mar, [facility] [id number] [place] [address] 07556- 0723 Mar, [facility] [id number] [place] [address] 94629- 4764 Mar, [facility] [id number] [place] [address] 19723 -6211 Mar, [facility] [id number] [place] [address] 51787 -6340 Mar, Cough R05 ; Pneumonia of right lower lobe due to infectious organism J18.1 and Abnormal chest x-ray R93.8 [facility] [id number] [place] [address] 08875- 9414 Mar, [facility] [id number] [place] [address] 61852- 1208 Mar, [facility] [id number] [place] [address] 41513- 2759 Jan, Anxiety F41.9 [facility] [id number] [place] [address] 35900- 8379 Jan, [facility] [id number] [place] [address] 18631- 5160 Jan, Moderate episode of recurrent major depressive disorder F33.1 [facility] [id number] [place] [address] 26514- 8923 Jan, Subacromial bursitis of right shoulder joint M75.51 ; Shortness of breath on exertion R06.02 and BMI 45.0-49.9, adult Z68.42 [facility] [id number] [place] [address] 01103- 3828 Dec, Anxiety F41.9 [facility] [id number] [place] [address] 04504- 2742 Dec, [facility] [id number] [place] [address] 20820- 5311 Dec, Low back pain M54.5 [facility] [id number] [place] [address] 02759- 8332 Oct, Low back pain M54.5 [facility] [id number] [place] [address] 29675- 5752 Sep, [facility] [id number] [place] [address] 07402- 2541 Sep, Erectile dysfunction due to diseases classified elsewhere N52.1 [facility] [id number] [place] [address] 95767- 1207 Sep, Erectile dysfunction due to diseases classified elsewhere N52.1 [facility] [id number] [place] [address] 96899- 1153 Sep, [facility] [id number] [place] [address] 60601- 3703 Sep, Erectile dysfunction due to diseases classified elsewhere N52.1 [facility] [address] 43460- 6075 Sep, Low back pain M54.5 and Anxiety F41.9 [facility] [id number] [place] [address] 51707 -7392 Aug, Acute allergic rhinitis J30.9 [facility] [address] 09978- 3479 Aug, [facility] [address] 59374- 7385 Aug, Anxiety F41.9 [facility] [address] 91183- 5342 Jul, Low back pain M54.5 ; Chronic prescription opiate use Z79.899 and Essential hypertension I10 [facility] [id number] [place] [address] 95985- 6385 Jul, Anxiety F41.9 and Low back pain M54.5 [facility] [address] 50484- 6749 June, [facility] [id number] [place] [address] 87278- 3345 June, Anxiety F41.9 [facility] [id number] [place] [address] 03061- 3900 May, Low back pain M54.5 [facility] [id number] [place] [address] 53289- 1108 May, [facility] [address] 46623- 1572 May, Anxiety F41.9 [facility] [id number] [place] [address] 54248- 5557 Apr, [place] [id number] [place] [address] 26795- 4149 Apr, Low back pain M54.5 [place] [id number] [place] [address] 06426- 0563 Apr, Moderate episode of recurrent major depressive disorder F33.1 [place] [address] 30073- 2445 Apr, Anxiety F41.9 [place] [id number] [place] [address] 03666- 9023 Apr, Low back pain M54.5 [place] [address] 65209- 7151 15 Apr, 2016 Elevated alkaline phosphatase level R74.8 [place] [id number] [place] [address] 48800- 4994 10 Apr, 2016 Alkaline phosphatase elevation R74.8 [place] [id number] [place] [address] 83295- 1122 06 Apr, 2016 Anxiety F41.9 [place] [id number] [place] [address] 06865- 8089 03 Apr, 2016 Low back pain M54.5 [place] [id number] [place] [address] 05790- 1365 Apr, History of weight loss surgery Z98.84 ; Encounter for hepatitis C screening test for low risk patient Z11.59 ; History of herpes genitalis Z86.19 ; Essential hypertension I10 ; Hyperlipidemia, unspecified E78.5 ; Exposure to STD Z20.2 and Benign prostatic hyperplasia, presence of lower urinary tract symptoms unspecified, unspecified morphology N40.0 [place] [id number] [place] [address] 03728- 2353 Apr, [place] [id number] [place] [address] 94412- 6532 Mar, [place] [address] [place] [address]- 3274 Mar, [facility] [id number] [place] [address] 48033- 3061 Mar, [facility] [id number] [place] [address] 21730- 5230 Mar, Acute right-sided low back pain with right-sided sciatica M54.41 [place] [id number] [place] [address] 52434- 4702 Mar, Low back pain M54.5 [facility] [id number] [place] [address] 38778 -8834 Mar, Muscle strain of chest wall, initial encounter S29.011A ; Muscle strain of right thigh, initial encounter S76.911A and Acute non- recurrent maxillary sinusitis J01.00 [place] [id number] [place] [address] 52408- 3096 Mar, Benign prostatic hyperplasia, presence of lower urinary tract symptoms unspecified, unspecified morphology N40.0 [place] [id number] [place] [address] 91756- 4028 Jan, Low back pain M54.5 [place] [id number] [place] [address] 57934- 2972 Jan, Low back pain M54.5 ; Essential hypertension I10 ; Hyperlipidemia, unspecified E78.5 ; Anxiety F41.9 ; Moderate episode of recurrent major depressive disorder F33.1 ; Primary insomnia F51.01 ; Exposure to STD Z20.2 ; Encounter for hepatitis C screening test for low risk patient Z11.59 and History of herpes genitalis Z86.19 [place] [id number] [place] [address] 73876- 7883 Dec, [place] [id number] [place] [address] 84185- 0123 Nov, [place] [id number] [place] [address] 46079- 6547 Nov, Anxiety F41.9 ; Cervicalgia M54.2 ; Moderate episode of recurrent major depressive disorder F33.1 and Encounter for immunization Z23 [facility] [id number] [place] [address] 11707- 9337 Oct, [facility] [id number] [place] [address] 90558- 4575 Oct, [facility] [address] 43619- 3743 Oct, [facility] [id number] [place] [address] 89415- 0122 Oct, [facility] [address] 32472- 1771 Sep, [facility] [id number] [place] [address] 65788- 1079 Aug, Low back pain M54.5 ; Anxiety F41.9 ; Primary insomnia F51.01 and Chronic prescription opiate use Z79.899 [facility] [id number] [place] [address] 38227- 7597 Jul, [facility] [id number] [place] [address] 34841- 0004 Jul, [facility] [id number] [place] [address] 26571- 3778 Jul, [facility] [id number] [place] [address] 72696- 8009 Jul, [facility] [id number] [place] [address] 82384- 3845 Jul, [facility] [id number] [place] [address] 28661- 7822 June, [facility] [id number] [place] [address] 55614- 7316 June, [facility] [address] [place] [address]- 0232 June, [facility] [id number] [place] [address] 59749- 2998 June, [facility] [id number] [place] [address] 17393- 4715 May, Preoperative cardiovascular examination Z01.810 [facility] [id number] [place] [address] 61146- 3379 May, [facility] [id number] [place] [address] 69174- 2650 Apr, [facility] [id number] [place] [address] 26101- 3585 Apr, Osteoarthritis of right knee M17.9 [facility] [id number] [place] [address] 69302- 3794 Apr, [facility] [id number] [place] [address] 00974- 4911 16 May, 2015 [facility] [id number] [place] [address] 09744- 0704 Apr, [facility] [id number] [place] [address] 58813- 3197 Apr, [facility] [id number] [place] [address] 01744- 3082 Apr, History of excessive cerumen Z78.9 ; Obstructive sleep apnea syndrome G47.33 ; History of diverticulitis Z87.19 and Nephrolithiasis N20.0 [facility] [address] [address]- 7695 Apr, [facility] [id number] [place] [address] 93097 -9582 Apr, Abdominal pain R10.9 [facility] [id number] [place] [address] 74716- 1540 10 Apr, 2015 [place] [id number] [place] [address] 93972- 1696 04 Apr, 2015 Osteoarthritis of right knee M17.9 [facility] [address] 52463- 4531 Mar, [facility] [id number] [place] [address] 18292- 6664 Mar, [facility] [address] 61698- 8196 Mar, [facility] [address] 06335- 7133 Mar, [facility] [address] 13306 -3416 Mar, Pyelonephritis N12 ; Left-sided thoracic back pain M54.6 ; Hematuria, unspecified R31.9 and Kidney stone N20.0 [place] [id number] [place] [address] 36975- 8214 Mar, History of weight loss surgery Z98.84 [place] [id number] [place] [address] 06596- 3945 Mar, History of weight loss surgery Z98.84 and Hyperlipidemia, unspecified E78.5 [place] [id number] [place] [address] 86850- 4878 Mar, Low back pain M54.5 ; Chronic prescription opiate use Z79.899 ; Hyperlipidemia, unspecified E78.5 ; Spasm of back muscles M62.830 and History of weight loss surgery Z98.84 [place] [id number] [place] [address] 07633- 7443 Jan, [place] [id number] [place] [address] 37547- 1407 Jan, [facility] [id number] [place] [address] 07656- 4267 Jan, [place] [address] [address]- 2198 Dec, [facility] [id number] [place] [address] 717632- 9648 Dec, [facility] [id number] [place] [address] [id number]- 4892 Dec, [facility] [id number] [place] [address] 631007- 1259 Nov, [facility] [id number] [place] [address] 80995- 7315 Nov, Obstructive sleep apnea syndrome G47.33 and Pharyngoesophageal dysphagia R13.14 [facility] [id number] [place] [address] 29888- 2388 Nov, [facility] [id number] [place] [address] 89173- 3607 Nov, [facility] [id number] [place] [address] 11519- 2496 Nov, [facility] [id number] [place] [address] [id number] 30 Oct, 2014 Dental examination V72.2 [facility] [id number] [place] [address] 44890- 7842 Oct, [facility] [id number] [place] [address] 80857- 0875 Oct, [facility] [id number] [place] [address] [phone] Oct, [facility] [id number] [place] [address] [phone] Oct, [facility] [id number] [place] [address] [phone] Oct, BPH (benign prostatic hyperplasia) 600.00 and Urinary frequency 788.41 [facility] [id number] [place] [address] [phone] Oct, [facility] [id number] [place] [address] [phone]- [phone] Oct, [facility] [id number] [place] [address] [phone] Oct, [facility] [id number] [place] [address] [phone] Sep, Cerumen impaction 380.4 ; Cerumen debris on tympanic membrane 380.4 ; Psoriasis 696.1 and MICKY (secretory otitis media) 381.4 [facility] [id number] [place] [address] [id number] Sep, Dental examination V72.2 [facility] [id number] [place] [address] [id number] Sep, Fatigue 780.79 ; Irritable bowel syndrome 564.1 ; Overweight 278.02 ; Poor sleep V69.4 ; Shaking spells 781.0 and Broken tooth 873.63 [facility] [id number] [place] [address] [phone] Sep, [facility] [id number] [place] [address] [phone] Sep, [facility] [id number] [place] [address] [phone] Aug, [facility] [id number] [place] [address]20- 8294 Jul, [facility] [id number] [place] [address] 61685- 1121 Jul, [facility] [id number] [place] [address] 71774- 4667 Jul, [facility] [id number] [place] [address] 64729- 4371 Jul, [facility] [id number] [place] [address] 88657- 6171 June, Arthritis of knee, right 716.96 [facility] [address] [id number] [place] [address] 3566 June, [facility] [id number] [address] 8[address] June, Elevated blood pressure reading without diagnosis of hypertension 796.2 [facility] [address] [id number] [place] [address] 9110 June, [facility] [address] [id number] [place] [address]- 1567 June, [facility] [address] [id number] [address]- 5510 June, [facility] [id number] [address] 2813 June, [facility] [id number] [address] 4265 May, [facility] [address] [id number] [address]- 2073 May, [facility] [address] [id number] [address] 29[address] Apr, [facility] [address] [id number] [address] 0237 Apr, [facility] [address] [id number] [address] 2019 Apr, [facility] [address] [id number] [place] [address]- 6033 Apr, [facility] [address] [id number] [address] 2294 Apr, [facility] [address] [id number] [place] [address]- 3092 Apr, [facility] [address] [id number] [address] 04[address] Apr, 2014 [facility] [place] [facility] [address] [id number] [place] [address]- 9041 13 Apr, 2014 [facility] [place] [facility] [address] [id number] [place] [address]- 2158 Apr, 2014 [facility] [place] [facility] [address] [id number] [place] [address]- 2999 Apr, 2014 [facility] [place] [facility] [address] [id number] [place] [address]- 4402 Apr, 2014 [facility] [place] [facility] [address] [id number] [place] [address]- 8525 Apr, 2014 [facility] [place] [facility] [address] [id number] [place] [address]- 5610 24 Apr, 2014 [facility] [place] [facility] [address] [id number] [place] [address]- 0982 24 Apr, 2014 [facility] [place] [facility] [address] [id number] [place] [address]- 9927 23 Apr, 2014 [facility] [place] [facility] [address] [id number] [place] [address]- 5270 23 Apr, 2014 [facility] [place] [facility] [address] [facility] [id number] [place] [address]- 1124 20 Apr, 2014 [facility] [place] [facility] [address] [facility] [id number] [place] [address]- 0971 20 Apr, 2014 [facility] [place] [facility] [address] [id number] [place] [address]- 2540 18 Apr, 2014 [facility] [place] [facility] [address] [id number] [place] [address]- 4023 18 Apr, 2014 [facility] [place] [facility] [address] [facility] [id number] [place] [address]- 7936 13 Apr, 2014 [facility] [place] [facility] [address] [facility] [id number] [place] [address]- 8861 Apr, 2014 [facility] [place] [facility] [address] [id number] [place] [address]- 1143 Apr, 2014 [facility] [place] [facility] [address] [facility] [id number] [place] [address]- 0806 Apr, 2014 [facility] [place] [facility] [address] [facility] [id number] [place] [address]- 3333 Apr, 2014 [facility] [place] [facility] [address] [facility] [id number] [place] [address]- 3282 Apr, 2014 [facility] [place] [facility] [address] [facility] [id number] [place] [address]- 3702 Apr, 2014 [facility] [place] [facility] [address] [facility] [id number] [place] [address]- 4549 Apr, 2014 [facility] [place] [facility] [address] [id number] [place] [address]- 3436 Apr, 2014 [facility] [place] [facility] [address] [facility] [id number] [place] [address]- 0642 Apr, 2014 [facility] [place] [facility] [address] [facility]] [id number] [place] [address]- 7947 Apr, 2014 [facility] [place] [facility] [address] [facility] [id number] [place] [address]- 1056 Apr, 2014 [facility] [place] [facility] [address] [facility]] [id number] [place] [address]- 0845 Apr, 2014 [facility] [place] [facility] [address] [facility] 2[facility] [id number] [address]- 1167 Mar, [facility] [place] [facility] [address] [facility] [id number] [place] [address]- 9728 Mar, [facility] [place] [facility] [address] [facility]] [id number] [address]- 4798 Mar, [facility] [place] [facility] [address] [facility] 2] [id number] [address]- 4065 Mar, [facility] [place] [facility] [address] [id number] [place] [address]- 6622 Mar, [facility] [address] [id number] [place] [address]- 6896 Mar, [facility] [place] [facility] [address] [id number] [place] [address]- 2738 Mar, [facility] [address] [id number] [place] [address]- 1210 Mar, [facility] [address] [id number] [place] [address]- 5321 Mar, [facility] [address] [id number] [place] [address]- 1186 Mar, [facility] [address] [id number] [place] [address]- 2884 Jan, [facility] [address] [id number] [place] [address]- 9150 Jan, [facility] [address] [id number] [place] [address]- 6370 Jan, [facility] [place] [facility] [address] [id number] [place] [address]- 0766 Jan, [facility] [place] [facility] [address] [id number] [place] [address]- 8884 Jan, [facility] [place] [facility] [address] [id number] [place] [address]- 6556 Jan, [facility] [place] [facility] [address] [id number] [place] [address]- 7884 Jan, [facility] [place] [facility] [address] [id number] [place] [address]- 3064 Jan, [facility] [place] [facility] [address] [id number] [place] [address]60 Jan, [facility] [place] [facility] [address] [id number] [place] [address]- 9008 Jan, [facility] [place] [facility] [address] [id number] [place] [address]- 5963 Jan, [facility] [place] [facility] [address] [id number] [place] [address]- 0889 Jan, [facility] [place] [facility] [address] [id number] [place] [address]- 2237 Dec, [facility] [place] [facility] [address] [id number] [place] [address]- 4375 Dec, [facility] [place] [facility] [address] [id number] [place] [address]- 8699 Dec, [facility] [place] [facility] [address] [id number] [place] [address]- 7814 Dec, [facility] [place] [facility] [address] [id number] [place] [address]- 7664 Dec, [facility] [place] [facility] [address] [id number] [place] [address]- 0985 Dec, [facility] [place] [facility] [address] [id number] [place] [address]- 3391 Dec, [facility] [place] [facility] [address] [id number] [place] [address]- 3383 Dec, [facility] [place] [facility] [address] [id number] [place] [address]- 1030 Dec, [facility] [place] [facility] [address] [id number] [place] [address]- 3967 Dec, [facility] [place] [facility] [address] [id number] [place] [address]- 4336 Nov, [facility] [place] [facility] [address] [id number] [place] [address]- 8716 Nov, [facility] [place] [facility] [address] [id number] [place] [address]- 3454 Nov, [facility] [place] [facility] [address] [id number] [place] [address]- 2074 Nov, 2013 [facility] [place] [facility] [address] [id number] [place] [address]- 1542 Nov, 2013 [facility] [place] [facility] [address] [id number] [place] [address]- 3024 Nov, [facility] [place] [facility] [address] [id number] [place] [address]- 3881 Nov, [facility] [place] [facility] [address] [id number] [place] [address]- 4912 Nov, [facility] [place] [facility] [address] [id number] [place] [address]- 9636 Nov, [facility] [place] [facility] [address] [id number] [place] [address]- 7184 Nov, [facility] [place] [facility] [address] [id number] [place] [address]- 3470 Nov, [facility] [place] [facility] [address] [id number] [place] [address]- 8090 Nov, [facility] [place] [facility] [address] [id number] [place] [address]- 2079 Nov, [facility] [place] [facility] [address] [id number] [place] [address]- 1457 14 Nov, 2013 [facility] [place] [facility] [address] [id number] [place] [address]- 1638 10 Nov, 2013 [facility] [place] [facility] [address] [id number] [place] [address]- 7228 10 Nov, 2013 [facility] [place] [facility] [address] [id number] [place] [address]- 9473 08 Nov, 2013 [facility] [place] [facility] [address] [id number] [place] [address]- 8661 08 Nov, 2013 [facility] [place] [facility] [address] [id number] [place] [address]- 5523 Nov, [facility] [place] [facility] [address] [id number] [place] [address]- 5886 Nov, [facility] [place] [facility] [address] [id number] [place] [address]- 8662 Oct, [facility] [place] [facility] [address] [id number] [place] [address]- 1477 Oct, [facility] [place] [facility] [address] [id number] [place] [address]- 1505 Oct, [facility] [place] [facility] [address] [id number] [place] [address]- 0087 Oct, [facility] [place] [facility] [address] [id number] [place] [address]- 4468 Oct, [facility] [place] [facility] [address] [id number] [place] [address]- 7631 Oct, [facility] [place] [facility] [address] [id number] [place] [address]- 6745 Oct, [facility] [place] [facility] [address] [id number] [place] [address]- 7699 Oct, [facility] [place] [facility] [address] [id number] [place] [address]- 6523 Oct, [facility] [place] [facility] [address] [id number] [place] [address]- 5937 Oct, [facility] [place] [facility] [address] [id number] [address]- 2894 Sep, [facility] [place] [facility] [address] [id number] [place] [address]- 7837 Sep, [facility] [place] [facility] [address] [id number] [place] [address]- 1643 Sep, [facility] [place] [facility] [address] [id number] [place] [address]- 6914 Sep, [facility] [place] [facility] [address] [id number], [place] [address]- 1582 Sep, [facility] [place] [facility] [address] [id number] [place] [address]- 6354 Sep, [facility] [place] [facility] [address] [id number] [place] [address]- 2033 Sep, [facility] [place] [facility] [address] [id number] [place] [address]- 7543 Sep, [facility] [place] [facility] [address] [id number] [place] [address]- 1892 Sep, [facility] [place] [facility] [address] [id number] [place] [address]- 4490 Sep, [facility] [place] [facility] [address] [id number] [place] [address]- 5785 Sep, [facility] [place] [facility] [address] [id number] [place] [address]- 5844 Sep, [facility] [place] [facility] [address] [id number] [place] [address]- 1336 Sep, [facility] [place] [facility] [address] [id number] [place] [address]- 0770 Sep, [facility] [place] [facility] [address] [id number] [place] [address]- 1585 Sep, [facility] [place] [facility] [address] [id number] [place] [address]- 8119 Sep, [facility] [place] [facility] [address] [id number] [place] [address]- 4216 Sep, [facility] [place] [facility] [address] [id number] [place] [address]- 5791 Sep, [facility] [place] [facility] [address] [id number] [place] [address]- 4537 Sep, [facility] [place] [facility] [address] [id number] [place] [address]- 7603 Sep, [facility] [place] [facility] [address] [id number] [place] [address]- 2298 Sep, [facility] [place] [facility] [address] [id number] [facility] [place] [address]- 8610 Sep, [facility] [place] [facility] [address] [id number] [place] 4984 Sep, [facility] [place] [facility] [address] [id number] [place] [address]- 4456 Sep, [facility] [place] [facility] [address] [id number] [place] [address]- 3907 Sep, [facility] [place] [facility] [address] [id number] [place] [address]- 6379 Aug, [facility] [place] [facility] [address] [id number] [place] [address]- 3151 Aug, [facility] [place] [facility] [address] [id number] [place] [address]- 9180 Aug, [facility] [place] [facility] [address] [id number] [place] [address]- 5662 Aug, [facility] [place] [facility] [address] [id number] [place] [address]- 1999 Aug, [facility] [place] [facility] [address] [id number] [place] [address]- 7466 Aug, [facility] [place] [facility] [address] [id number] [place] [address]- 3075 Aug, [facility] [place] [facility] [address] [id number] [place] [address]- 6848 Aug, [facility] [place] [facility] [address] [id number] [place] [address]- 2545 Aug, [facility] [place] [facility] [address] [id number] [place] [address]- 2245 Aug, [facility] [place] [facility] [address] [id number] [place] [address]- 0028 Aug, [facility] [place] [facility] [address] [id number] [place] [address]- 4126 Aug, [facility] [place] [facility] [address] [id number] [place] [address]- 9307 Aug, [facility] [place] [facility] [address] [id number] [place] [address]- 8628 Jul, [facility] [place] [facility] [address] [id number] [place] [address]- 8425 Jul, [facility] [place] [facility] [address] [id number] [place] [address]- 3689 Jul, [facility] [place] [facility] [address] [id number] [place] [address]- 3519 Jul, [facility] [place] [facility] [address] [id number] [place] [address]- 5908 Jul, [facility] [place] [facility] [address] [id number] [place] [address]- 8377 Jul, [facility] [place] [facility] [address] [id number] [place] [address]- 2046 Jul, [facility] [place] [facility] [address] [id number] [place] [address]- 3918 June, [facility] [place] [facility] [address] [id number] [place] [address]- 4400 June, [facility] [place] [facility] [address] [id number] [place] [address]- 6161 June, [facility] [place] [facility] [address] [id number] [place] [address]- 1303 June, [facility] [place] [facility] [address] [id number] [place] [address]- 0093 May, [facility] [place] [facility] [address] [id number] [place] [address]- 8152 May, [facility] [place] [facility] [address] [id number] [place] [address]- 0719 09 May, 2013 [facility] [place] [facility] [address] [id number] [place] [address]- 3802 May, [facility] [place] [facility] [address] [id number] [place] [address]- 6459 May, [facility] [place] [facility] [address] [id number] [place] 5687 May, [facility] [place] [facility] [address] [id number] [place] [address]- 0063 May, [facility] [place] [facility] [address] [id number] [place] [address]- 2431 May, [facility] [place] [facility] [address] [facility] [id number] [place] [address]- 0692 May, [facility] [place] [facility] [address] [facility] 2] [id number] [place] [address]- 6973 May, [facility] [place] [facility] [address] [facility] 2] [id number] [place] [address]- 4700 Apr, [facility] [place] [facility] [address] [id number] [place] [address]- 9790 Apr, [facility] [place] [facility] [address] [facility] 2] [id number] [place] [address]- 2429 Apr, [facility] [place] [facility] [address] [facility] 2] [id number] [place] [address]- 1396 Apr, [facility] [place] [facility] [address] [facility] 2] [id number] [place] [address]- 5095 Apr, [facility] [place] [facility] [address] [id number] [place] [address]- 8084 Apr, [facility] [place] [facility] [address] [facility] 2] [id number] [place] [address]- 1382 Apr, [facility] [place] [facility] [address] [facility] 2] [id number] [place] 2462 Apr, [facility] [address] [id number] [place] [address]- 2287 Apr, [facility] [place] [facility] [address] [id number] [place] [address]- 8473 Apr, [facility] [place] [facility] [address] [id number] [place] [address]- 4919 Mar, [facility] [place] [facility] [address] [id number] [place] [address]- 4557 Mar, [facility] [place] [facility] [address] [id number] [place] [address]- 8216 Mar, [facility] [place] [facility] [address] [id number] [place] [address]- 2804 Mar, [facility] [place] [facility] [address] [facility] [place] [id number] [place] [address] Mar, [facility] [place] [facility] [address] [id number] [place] [address] 47[address] Mar, [facility] [place] [facility] [address] [id number] [place] [address] Jan, [facility] [place] [facility] [address] [id number] [place] [address] 30[address] Jan, [facility] [place] [facility] [address] [id number] [address] Jan, [facility] [place] [facility] [address] [id number], [place] [address] Jan, [facility] [place] [facility] [address] [id number] [place] [address] Jan, [facility] [place] [facility] [address] [id number] [place] [address] Jan, [facility] [place] [facility] [address] [facility] [place] [id number] [place] [address] Jan, [facility] [place] [facility] [address] [id number] [place] [address] Jan, [facility] [address] [id number] [place] [address] Jan, [facility] [place] [facility] [address] [id number] [place] [address] Dec, [facility] [address] [id number] [place] [address] Dec, [facility] [place] [facility] [address] [id number] [place] [address]- [address] Dec, [facility] [place] [facility] [address] [id number] [place] [address] Dec, [facility] [place] [facility] [address] [id number] [place] [address]225 Dec, [facility] [address] [id number] [place] [address]- [address]40 Dec, [facility] [place] [facility] [address] [id number] [place] [address]- [address] Dec, [facility] [place] [facility] [address] [id number] [place] [address]- 4784 Dec, [facility] [place] [facility] [address] [facility] [place] [facility] [id number] [place] [address] Dec, [facility] [place] [facility] [address] [id number] [place] [address]- 9047 Dec, [facility] [place] [facility] [address] [id number], [place] [address] Dec, [facility] [place] [facility] [address] [id number] [place] [address]- [address] Nov, [facility] [place] [facility] [address] [id number] [place] [address] 39[address] Nov, [facility] [place] [facility] [address] [id number], [place] [address] Nov, [facility] [place] [facility] [address] [id number] [place] [address] Nov, [facility] [address] [id number] [place] [address]- [address] Nov, [facility] [place] [facility] [address] [id number] [place] [address] Oct, [facility] [place] [facility] [address] [id number] [place] [address] 1563 Oct, [facility] [place] [facility] [address] [id number] [place] [address]- [address] Sep, [facility] [place] [facility] [address] [id number] [place] [address]- 9020 Aug, [facility] [place] [facility] [address] [id number] [place] [address] 49[address] Aug, [facility] [place] [facility] [address] [id number] [place] [address]- [address]058 Aug, [facility] [place] [facility] [address] [id number] [place] [address] 8617 Aug, [facility] [place] [facility] [address] [id number] [place] [address] Jul, [facility] [place] [facility] [address] [id number] [place] [address] Jul, [facility] [place] [facility] [address] [id number] [place] [address]181 June, [facility] [place] [facility] [address] [id number] [place] [address] 88[address] June, [facility] [place] [facility] [address] [id number] [place] [address] June, [facility] [place] [facility] [address] [id number] [place] [address] May, [facility] [place] [facility] [address] [id number], [place] [address] May, [facility] [address] [facility] [place] [id number] [place] [address] May, [facility] [address] [id number] [place] [address] 18 Apr, 2012 [facility] [address] [facility] [place] [id number] [place] [address] 18 Apr, 2012 [facility] [address] [id number] [place] [address]- 1441 15 Apr, 2012 [facility] [address] [id number] [place] [address]- [address] 14 Apr, 2012 [facility] [address] [facility] [place] [id number] [place] [address]- [address] 12 Apr, 2012 [facility] [address] [facility] [place] [id number] [place] [address] 27 Apr, 2012 [facility] [address] [facility] [place] [id number] [place] [address] 475[address] Apr, [facility] [address] [facility] [place] [id number] [place] [address] Apr, [facility] [address] [facility] [place]] [id number] [place] [address]- [address] Apr, [facility] [address] [facility] [place] [id number], [place] [address]69 Apr, [facility] [place] [facility] [address] [facility] [place] [place] [id number], [place] [address] 19 Apr, 2012 [facility] [place] [facility] [address] [facility] [place] [id number][place] [address] 07 Apr, 2012 [facility] [place] [facility] [address] [facility] [place] [id number], [place] [address]959 07 Apr, 2012 [facility] [place] [facility] [address] [facility] [place] [id number], [place] [address] Mar, [facility] [place] [facility] [address] [id number] [place] [address]- 6095 Mar, [facility] [address] [id number] [place] [address]- 3570 Mar, [facility] [address] [id number] [place] [address]- 5526 Mar, [facility] [address] [id number] [place] [address]- 3976 Mar, [facility] [address] [id number] [place] [address]- 4178 Jan, [facility] [address] [address] [id number] [place] [address] Jan, [facility] [address] [id number] [place] [address] Jan, [facility] [address] [id number] [place] [address] Jan, [facility] [address] [id number] [place] [address] 14 Jan, 2012 [facility] [address] [id number] [place] [address] Jan, [facility] [address] [id number] [place] [address] Jan, [facility] [address] [id number] [place] [address] Jan, [facility] [address] [id number] [place] [address] 06 Jan, 2012 [facility] [place] [facility] [address] [id number] [place] [address] 06 Jan, 2012 [facility] [place] [facility] [address] [id number] [place] [address] 04 Jan, 2012 [facility] [place] [facility] [address] [id number] [address] 04 Jan, 2012 [facility] [place] [facility] [address] [id number] [place] [address] 04 Jan, 2012 [facility] [place] [facility] [address] [id number] [place] [address] 04 Jan, 2012 [facility] [place] [facility] [address] [facility] [place] [id number] [place] [address] Dec, [facility] [place] [facility] [address] [id number], [place] [address] 26 Jan, 2012 [facility] [place] [facility] [address] [id number] [place] [address] Dec, [facility] [place] [facility] [address] [id number] [place] [address] 2096 19 Jan, 2012 [facility] [place] [facility] [address] [id number], [place] [address] 15 Jan, 2012 [facility] [place] [facility] [address] [id number], [place] [address] 15 Jan, 2012 [facility] [place] [facility] [address] [id number], [place] [address] 14 Jan, 2012 [facility] [place] [facility] [address] [id number], [place] [address] 14 Jan, 2012 [facility] [place] [facility] [address] [id number], [place] [address] 14 Jan, 2012 [facility] [place] [facility] [address] [id number], [place] [address] 14 Jan, 2012 [facility] [place] [facility] [address] [id number], [place] [address] 07 Jan, 2012 [facility] [place] [facility] [address] [facility] [place] [id number], [place] [address] 07 Jan, 2012 [facility] [place] [facility] [address] [facility] [place] [id number], [place] [address] 16 Dec, 2011 [facility] [place] [facility] [address] [id number] [place] [address]25 16 Dec, 2011 [facility] [address] [id number] [place] [address] 3586 13 Nov, 2011 [facility] [address] [id number] [place] [address] 13 Nov, 2011 [facility] [address] [id number] [place] [address] 1516 13 Nov, 2011 [facility] [address] [id number] [place] [address] 2711 12 Nov, 2011 [facility] [address] [id number] [place] [address]70 30 Oct, 2011 [facility] [address] [id number] [place] [address] 9046 Sep, [facility] [address] [id number] [place] [address]37 Aug, [facility] [address] [id number] [place] [address] 8913 Aug, [facility] [address] [id number] [place] [address]12 Aug, [facility] [address] [id number] [place] [address] Aug, [facility] [address] [id number] [place] [address] 39[address] June, [facility] [address] [id number] [place] [address] 9166 June, [facility] [place] [facility] [address] [id number] [place] [address] May, [facility] [place] [facility] [address] [id number] [place] [address] 25[address] Apr, [facility] [address] [id number] [place] [address] 0693 Apr, [facility] [address] [id number] [place] [address] 0145 Apr, [facility] [place] [facility] [address] [id number] [place] [address]- 0606 Apr, [facility] [place] [facility] [address] [id number] [place] [address] 4[address] Apr, [facility] [place] [facility] [address] [id number] [place] [address] 2836 Apr, [facility] [address] [id number] [place] [address] 0706 Mar, [facility] [place] [facility] [address] [id number] [place] [address] 7166 Mar, [facility] [place] [facility] [address] [id number] [place] [address] 7426 Mar, [facility] [address] [id number] [place] [address] 0821 Jan, [facility] [place] [facility] [address] [id number] [place] [address] 7026 Jan, [facility] [place] [facility] [address] [id number] [place] [address] 9859 Jan, [facility] [place] [facility] [address] [id number] [place] [address]- 9036 Jan, [facility] [place] [facility] [address] [id number] [place] [address]- 0496 Jan, [facility] [place] [facility] [address] [id number] [place] [address] 3146 Jan, [facility] [place] [facility] [address] [id number] [place] [address] 7626 Jan, [facility] [place] [facility] [address] [id number] [place] [address]- 8916 Dec, [facility] [place] [facility] [address] [id number] [place] [address] 7430 Dec, [facility] [place] [facility] [address] [id number] [place] [address]7 18 Nov, 2010 [facility] [place] [facility] [address] [id number] [place] [address] 18 Nov, 2010 [facility] [place] [facility] [address] [id number] [place] [address]- 9400 Nov, [facility] [place] [facility] [address] [id number] [place] [address]- 5[address] Nov, [facility] [place] [facility] [id number] [place] [address], [place] [address]- 5766 Oct, [facility] [place] [facility] [address] [id number] [place] [address]- 5649 Sep, [facility] [place] [facility] [address] [id number] [place] [address]- 9295 Mar, [facility] [place] [facility] [address] [id number] [place] [address]- 5129 Jan, [facility] [place] [facility] [address] [id number] [place] [address]- 8701 Dec, [facility] [place] [facility] [address] [id number] [place] [address]- 2144 Dec, [facility] [place] [facility] [address] [id number] [place] [address]- 3723 Dec, [facility] [place] [facility] [address] [id number] [place] [address]- 6741 Dec, [facility] [place] [facility] [address] [id number] [place] [address]- 7627 Nov, [facility] [place] [facility] [address] [id number] [place] [address]- 1848 15 Nov, 2009 [facility] [place] [facility] [address] [id number] [place] [address]- 7217 14 Nov, 2009 [facility] [place] [facility] [address] [id number] [place] [address]- 5709 14 Nov, 2009 [facility] [address] [id number] [place] [address]- 9996 13 Oct, 2009 [facility] [place] [facility] [address] [id number] [place] [address] 2546 17 Jul, 2009 [facility] [place] [facility] [address] [id number] [place] [address] 2546 June, [facility] [place] [facility] [address] [id number] [place] [address] 2543 June, [facility] [place] [facility] [address] [id number] [place] [address]- 1416 Apr, [facility] [place] [facility] [address] [id number] [place] [address]- 7166 Mar, [facility] [address] [id number] [place] [address]- 5096 Jan, [facility] [address] [id number] [place] [address]- 6195 Jan, [facility] [address] [id number] [place] [address]- 6292 27 Dec, 2008 [facility] [place] [facility] [address] [id number] [place] [address]- 0389 25 Dec, 2008 [facility] [place] [facility] [address] [id number], [place] [address]- 2314 13 Dec, 2008 [facility] [place] [facility] [address] [id number] [place] [address]- 3562 13 Dec, 2008 [facility] [place] [facility] [address] [id number] [place] [address] 2546 30 Nov, 2008 [facility] [place] [facility] [address] [id number] [place] [address] 254 12 Jul, 2008 [facility] [place] [facility] [address] [id number] [place] [address]- 0950 June, IMMUNIZATIONS Vaccine Route Administration Date Status PPSV23 (PNEUMOVAX) IM Intramuscular Jan 01, 2018 Administered SOCIAL HISTORY Never Assessed REASON FOR VISIT Injection-awoods PLAN OF CARE VITAL SIGNS MEDICATIONS Unknown Medications RESULTS No Results PROCEDURES Procedure Date Ordered Result Body Site PPSV23 (PNEUMOVAX) Jan 01, 2018 ADMN PNEUMCOC VAC NO FEE SCHED DAY Jan 01, 2018 SINGLE IMMUNIZATION ADMIN Jan 01, 2018 INSTRUCTIONS MEDICATIONS ADMINISTERED No Known Medications MEDICAL (GENERAL) HISTORY Type Description Date Medical History hypertension Medical History sleep apnea-did not tolerate CPAP Medical History oxygen dependent at [facility] Medical History colonic polyps Medical History hyperlipidemia [...]
--- OUTSIDE RECORDS SUMMARY | 2018-02-26 19:47 | XMS REPORT ---
Author Author CHRIS STEVENSON [facility] Address [address] [place] [address] Care Team Providers Care Paper Supervisor Name Role Phone GRAHAMELLIOTT HANNAHANY Unavailable PROBLEMS Type Condition ICD9-CM Code GAT03-HZ Code Onset Dates Condition Status SNOMED Code Problem Pulmonary asbestosis J61 Active 83221650 Problem Left ventricular diastolic dysfunction I51.9 Active 369971978 Problem Renal cyst, left N28.1 Active 30793429 Problem History of weight loss surgery Z98.84 Active 706883692 Problem Nocturnal hypoxia G47.34 Active 201061414 Problem Obstructive sleep apnea syndrome G47.33 Active 07798045 Problem Nephrolithiasis N20.0 Active 75535096 Problem Allergic rhinitis, unspecified allergic rhinitis type J30.9 Active 13814680 Problem 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 Active 54270701 Problem History of diverticulitis Z87.19 Active 968815371771418 Problem Hammertoe of left foot M20.42 Active 385819114 Problem Erectile dysfunction due to diseases classified elsewhere N52.1 Active 053160226 Problem Anxiety F41.9 Active 49218055 Problem Psoriasis L40.9 Active 8200672 Problem Essential hypertension I10 Active 50129497 Problem Moderate episode of recurrent major depressive disorder F33.1 Active 291824590 Problem Chronic prescription opiate use Z79.899 Active 165303029 Problem Acute right-sided low back pain with right-sided sciatica M54.41 Active 194546942 Problem Benign prostatic hyperplasia, presence of lower urinary tract symptoms unspecified, unspecified morphology N40.0 Active 979713865 Problem Low back pain M54.5 Active 719884004 Problem Cervicalgia M54.2 Active 2533672453348 Problem Urge incontinence N39.41 Active 644544141 Problem Age-related osteoporosis without current pathological fracture M81.0 Active 90088786 Problem Esophageal stricture K22.2 Active 20500430 Problem Chronic gout, unspecified cause, unspecified site M1A.9XX0 Active 80997593 Problem Primary insomnia F51.01 Active 223896133 Problem Hyperlipidemia, unspecified E78.5 Active 30817643 ALLERGIES No Information ENCOUNTERS Encounter Location Date Diagnosis [facility] [id number] [place] [address] 86711- 1354 Mar, [facility] [id number] [place] [address] 18892- 9652 Jan, [facility] [address] 06017- 6568 Dec, [facility] [address] 19749- 9755 Dec, Encounter for immunization Z23 [facility] [address] 30633 -1042 Dec, [place] [address] 46764- 8339 Dec, Hammertoe of left foot M20.42 ; Edema of left foot R60.0 and Onychomycosis B35.1 [facility] [address] 02400 -5145 Nov, BMI 50.0-59.9, adult Z68.43 [facility] [id number] [place] [address] 67259- 7333 Nov, [facility] [id number] [place] [address] 15234- 0218 Nov, [facility] [id number] [place] [address] 72118- 1207 Nov, Anxiety F41.9 [facility] [id number] [place] [address] 34436- 3065 Oct, [facility] [id number] [place] [address] 41731- 0381 Oct, [facility] [address] 54419- 4676 Oct, BMI 45.0-49.9, adult Z68.42 ; Essential hypertension I10 ; Hyperlipidemia, unspecified E78.5 ; Anxiety F41.9 ; Obstructive sleep apnea syndrome G47.33 ; Moderate episode of recurrent major depressive disorder F33.1 ; Left ventricular diastolic dysfunction I51.9 ; Acute pain of right shoulder M25.511 ; Pain of left foot M79.672 and Pain in right foot M79.671 [facility] [id number] [place] [address] 46349- 7668 Oct, Anxiety F41.9 [facility] [id number] [place] [address] 80927 -6448 Sep, Left foot pain M79.672 [facility] [id number] [place] [address] 37083- 3122 Sep, [facility] [id number] [place] [address] 98307- 5578 Sep, Anxiety F41.9 [facility] [id number] [place] [address] 31520- 3425 Sep, [facility] [id number] [place] [address] 28814- 7391 Aug, [facility] [id number] [place] [address] 20095- 7999 Aug, [facility] [id number] [place] [address] 01257- 4222 Aug, Anxiety F41.9 [facility] [id number] [place] [address] 95531- 2828 Aug, [facility] [id number] [place] [address] 51183- 8975 Jul, [facility] [id number] [place] [address] 54785- 9031 Jul, Anxiety F41.9 [facility] [id number] [place] [address] 86987- 8412 June, Anxiety F41.9 [facility] [id number] [place] [address] 69717- 0334 June, [facility] [id number] [place] [address] 76766- 9214 June, Low back pain M54.5 ; Chronic prescription opiate use Z79.899 ; Candidal intertrigo B37.2 ; Urge incontinence N39.41 ; Essential hypertension I10 ; Moderate episode of recurrent major depressive disorder F33.1 ; Age-related osteoporosis without current pathological fracture M81.0 and BMI 45.0-49.9, adult Z68.42 [facility] [id number] [place] [address] 99272- 6072 June, [facility] [id number] [place] [address] 19484- 7070 May, Anxiety F41.9 [facility] [id number] [place] [address] 20447- 0169 May, [facility] [id number] [place] [address] 76427- 5006 May, [facility] [id number] [place] [address] 29402- 7650 Apr, Anxiety F41.9 [facility] [id number] [place] [address] 62840- 3677 Apr, [facility] [id number] [place] [address] 73436- 7693 Apr, Low back pain M54.5 [facility] [id number] [place] [address] 97671- 1596 Apr, [facility] [id number] [place] [address] 78400- 6466 Apr, [facility] [id number] [place] [address] 16154- 8337 Apr, Anxiety F41.9 [facility] [id number] [place] [address] 49572- 1248 Apr, Right groin pain R10.31 [facility] [id number] [place] [address] 35515- 7591 Mar, [facility] [id number] [place] [address] 78814- 7136 Mar, [facility] [id number] [place] [address] 14784- 5624 Mar, Anxiety F41.9 [facility] [address] 56741- 6708 Mar, Low back pain M54.5 [facility] [id number] [place] [address] 07855- 6861 Mar, Right groin pain R10.31 ; Low back pain M54.5 and BMI 45.0- 49.9, adult Z68.42 [facility] [id number] [place] [address] 37148- 1122 Mar, [facility] [id number] [place] [address] 43047- 5311 Mar, [facility] [id number] [place] [address] 07751- 3960 Mar, [facility] [id number] [place] [address] 41340 -2942 Mar, [facility] [id number] [place] [address] 12709 -5256 Mar, Cough R05 ; Pneumonia of right lower lobe due to infectious organism J18.1 and Abnormal chest x-ray R93.8 [facility] [id number] [place] [address] 60944- 7741 Mar, [facility] [id number] [place] [address] 25807- 9976 Mar, [facility] [id number] [place] [address] 30830- 2510 Jan, Anxiety F41.9 [facility] [id number] [place] [address] 40643- 4904 Jan, [facility] [id number] [place] [address] 67326- 1587 Jan, Moderate episode of recurrent major depressive disorder F33.1 [facility] [id number] [place] [address] 94373- 6016 Jan, Subacromial bursitis of right shoulder joint M75.51 ; Shortness of breath on exertion R06.02 and BMI 45.0-49.9, adult Z68.42 [facility] [id number] [place] [address] 53083- 8993 Dec, Anxiety F41.9 [facility] [id number] [place] [address] 14485- 6986 Dec, [facility] [id number] [place] [address] 31417- 9732 Dec, Low back pain M54.5 [facility] [id number] [place] [address] 12462- 0807 Oct, Low back pain M54.5 [facility] [id number] [place] [address] 94740- 7459 Sep, [facility] [id number] [place] [address] 77406- 4571 Sep, Erectile dysfunction due to diseases classified elsewhere N52.1 [facility] [id number] [place] [address] 14198- 0507 Sep, Erectile dysfunction due to diseases classified elsewhere N52.1 [facility] [id number] [place] [address] 41546- 0724 Sep, [facility] [id number] [place] [address] 16010- 7096 Sep, Erectile dysfunction due to diseases classified elsewhere N52.1 [facility] [address] 19733- 4953 Sep, Low back pain M54.5 and Anxiety F41.9 [facility] [id number] [place] [address] 28961 -0902 Aug, Acute allergic rhinitis J30.9 [facility] [address] 53743- 3014 Aug, [facility] [address] 17262- 1863 Aug, Anxiety F41.9 [facility] [address] 48050- 1752 Jul, Low back pain M54.5 ; Chronic prescription opiate use Z79.899 and Essential hypertension I10 [facility] [id number] [place] [address] 47086- 3023 Jul, Anxiety F41.9 and Low back pain M54.5 [facility] [address] 88822- 1469 June, [facility] [id number] [place] [address] 10659- 6628 June, Anxiety F41.9 [facility] [id number] [place] [address] 47747- 7341 May, Low back pain M54.5 [facility] [id number] [place] [address] 28128- 3766 May, [facility] [address] 66890- 6435 May, Anxiety F41.9 [facility] [id number] [place] [address] 27571- 7216 Apr, [place] [id number] [place] [address] 12539- 0144 Apr, Low back pain M54.5 [place] [id number] [place] [address] 51112- 1410 Apr, Moderate episode of recurrent major depressive disorder F33.1 [place] [address] 50879- 1290 Apr, Anxiety F41.9 [place] [id number] [place] [address] 02596- 3810 Apr, Low back pain M54.5 [place] [address] 59023- 4014 15 Apr, 2016 Elevated alkaline phosphatase level R74.8 [place] [id number] [place] [address] 61112- 8131 10 Apr, 2016 Alkaline phosphatase elevation R74.8 [place] [id number] [place] [address] 00479- 8773 06 Apr, 2016 Anxiety F41.9 [place] [id number] [place] [address] 83951- 6691 03 Apr, 2016 Low back pain M54.5 [place] [id number] [place] [address] 73614- 3434 Apr, History of weight loss surgery Z98.84 ; Encounter for hepatitis C screening test for low risk patient Z11.59 ; History of herpes genitalis Z86.19 ; Essential hypertension I10 ; Hyperlipidemia, unspecified E78.5 ; Exposure to STD Z20.2 and Benign prostatic hyperplasia, presence of lower urinary tract symptoms unspecified, unspecified morphology N40.0 [place] [id number] [place] [address] 47711- 3696 Apr, [place] [id number] [place] [address] 10837- 8985 Mar, [place] [id number] [place] [address]- 5026 Mar, [facility] [id number] [place] [address] 30106- 5771 Mar, [facility] [id number] [place] [address] 46570- 3411 Mar, Acute right-sided low back pain with right-sided sciatica M54.41 [place] [id number] [place] [address] 27422- 1553 Mar, Low back pain M54.5 [facility] [id number] [place] [address] 76257 -5763 Mar, Muscle strain of chest wall, initial encounter S29.011A ; Muscle strain of right thigh, initial encounter S76.911A and Acute non- recurrent maxillary sinusitis J01.00 [place] [id number] [place] [address] 81709- 7169 Mar, Benign prostatic hyperplasia, presence of lower urinary tract symptoms unspecified, unspecified morphology N40.0 [place] [id number] [place] [address] 13260- 8765 Jan, Low back pain M54.5 [place] [id number] [place] [address] 96514- 3783 Jan, Low back pain M54.5 ; Essential hypertension I10 ; Hyperlipidemia, unspecified E78.5 ; Anxiety F41.9 ; Moderate episode of recurrent major depressive disorder F33.1 ; Primary insomnia F51.01 ; Exposure to STD Z20.2 ; Encounter for hepatitis C screening test for low risk patient Z11.59 and History of herpes genitalis Z86.19 [place] [id number] [place] [address] 18389- 9708 Dec, [place] [id number] [place] [address] 38568- 0080 Nov, [place] [id number] [place] [address] 43545- 2189 Nov, Anxiety F41.9 ; Cervicalgia M54.2 ; Moderate episode of recurrent major depressive disorder F33.1 and Encounter for immunization Z23 [facility] [id number] [place] [address] 82578- 8238 Oct, [facility] [id number] [place] [address] 76020- 1173 Oct, [facility] [address] 99508- 2159 Oct, [facility] [id number] [place] [address] 64504- 0705 Oct, [facility] [address] 29371- 3287 Sep, [facility] [id number] [place] [address] 41687- 2693 Aug, Low back pain M54.5 ; Anxiety F41.9 ; Primary insomnia F51.01 and Chronic prescription opiate use Z79.899 [facility] [id number] [place] [address] 29683- 6335 Jul, [facility] [id number] [place] [address] 00428- 0154 Jul, [facility] [id number] [place] [address] 05317- 7723 Jul, [facility] [id number] [place] [address] 43982- 7890 Jul, [facility] [id number] [place] [address] 44080- 6358 Jul, [facility] [id number] [place] [address] 74187- 8558 June, [facility] [id number] [place] [address] 78100- 2362 June, [facility] [address] [place] [address]- 1753 June, [facility] [id number] [place] [address] 06835- 6420 June, [facility] [id number] [place] [address] 29020- 1931 May, Preoperative cardiovascular examination Z01.810 [facility] [id number] [place] [address] 95835- 3918 May, [facility] [id number] [place] [address] 37327- 7428 Apr, [facility] [id number] [place] [address] 59525- 7711 Apr, Osteoarthritis of right knee M17.9 [facility] [id number] [place] [address] 13286- 4414 Apr, [facility] [id number] [place] [address] 77884- 7352 16 May, 2015 [facility] [id number] [place] [address] 92246- 6478 Apr, [facility] [id number] [place] [address] 34082- 0486 Apr, [facility] [id number] [place] [address] 98792- 3901 Apr, History of excessive cerumen Z78.9 ; Obstructive sleep apnea syndrome G47.33 ; History of diverticulitis Z87.19 and Nephrolithiasis N20.0 [facility] [address] [address]- 0004 Apr, [facility] [id number] [place] [address] 95236 -0045 Apr, Abdominal pain R10.9 [facility] [id number] [place] [address] 41846- 0999 10 Apr, 2015 [place] [id number] [place] [address] 55034- 7655 04 Apr, 2015 Osteoarthritis of right knee M17.9 [facility] [address] 64265- 9905 Mar, [facility] [id number] [place] [address] 14757- 0623 Mar, [facility] [address] 84183- 4279 Mar, [facility] [address] 40937- 2670 Mar, [facility] [address] 16725 -6616 Mar, Pyelonephritis N12 ; Left-sided thoracic back pain M54.6 ; Hematuria, unspecified R31.9 and Kidney stone N20.0 [place] [id number] [place] [address] 10635- 6862 Mar, History of weight loss surgery Z98.84 [place] [id number] [place] [address] 51871- 6341 Mar, History of weight loss surgery Z98.84 and Hyperlipidemia, unspecified E78.5 [place] [id number] [place] [address] 82934- 7312 Mar, Low back pain M54.5 ; Chronic prescription opiate use Z79.899 ; Hyperlipidemia, unspecified E78.5 ; Spasm of back muscles M62.830 and History of weight loss surgery Z98.84 [place] [id number] [place] [address] 09925- 0500 Jan, [place] [id number] [place] [address] 16057- 7247 Jan, [facility] [id number] [place] [address] 73977- 8022 Jan, [place] [address] [address]- 0530 Dec, [facility] [id number] [place] [address] 063010- 9378 Dec, [facility] [id number] [place] [address] 074500- 3169 Dec, [facility] [id number] [place] [address] 942847- 0204 Nov, [facility] [id number] [place] [address] 85132- 8466 Nov, Obstructive sleep apnea syndrome G47.33 and Pharyngoesophageal dysphagia R13.14 [facility] [id number] [place] [address] [phone] Nov, [facility] [id number] [place] [address] [phone] Nov, [facility] [id number] [place] [address] [phone] Nov, [facility] [id number] [place] [address] [id number] Oct, 2014 Dental examination V72.2 [facility] [id number] [place] [address] [phone]- [phone] Oct, [facility] [id number] [place] [address] [phone] Oct, [facility] [id number] [place] [address] [phone]- [phone] Oct, [facility] [id number] [place] [address] [phone]- [phone] Oct, [facility] [id number] [place] [address] [phone]- [phone] Oct, BPH (benign prostatic hyperplasia) 600.00 and Urinary frequency 788.41 [facility] [id number] [place] [address] [phone]- [phone] Oct, [facility] [id number] [place] [address] [phone] Oct, [facility] [id number] [place] [address] [phone]- [phone] Oct, [facility] [id number] [place] [address] [phone]- [phone] Sep, Cerumen impaction 380.4 ; Cerumen debris on tympanic membrane 380.4 ; Psoriasis 696.1 and MICKY (secretory otitis media) 381.4 [facility] [id number] [place] [address] [id number] Sep, Dental examination V72.2 [facility] [id number] [place] [address] [phone]- [phone] Sep, Fatigue 780.79 ; Irritable bowel syndrome 564.1 ; Overweight 278.02 ; Poor sleep V69.4 ; Shaking spells 781.0 and Broken tooth 873.63 [facility] [id number] [place] [address] [phone]- [phone] Sep, [facility] [id number] [place] [address] [phone]- [phone] Sep, [facility] [id number] [place] [address] [phone]- [phone] Aug, [facility] [id number] [place] [address] [phone]- [phone] Jul, [facility] [id number] [place] [address] [phone] Jul, [facility] [id number] [place] [address]- [address] Jul, [facility] [id number] [place] [address]- 2275 Jul, [facility] [id number] [place] [address]- 8687 June, Arthritis of knee, right 716.96 [facility] [address] [id number] [place] [address] 6960 June, [facility] [id number] [place] [address] June, Elevated blood pressure reading without diagnosis of hypertension 796.2 [facility] [address] [id number] [place] [address]- 2637 June, [facility] [address] [id number] [place] [address]- 2781 June, [facility] [address] [id number] [place] [address]- 1657 June, [facility] [id number] [place] [address]- 7454 June, [facility] [id number] [address] 58[address] May, [facility] [address] [id number] [place] [address]- 3028 May, [facility] [address] [id number] [address] 7239 Apr, [facility] [address] [id number] [address] 2510 Apr, [facility] [address] [id number] [address] 479[address] Apr, [facility] [address] [id number] [place] [address]- 8618 Apr, [facility] [address] [id number] [address] Apr, [facility] [address] [id number] [place] [address]- 5801 Apr, [facility] [address] [id number] [place] [address]- 1042 Apr, 2014 [facility] [place] [facility] [address] [id number] [place] [address]- 0893 13 Apr, 2014 [facility] [place] [facility] [address] [id number] [place] [address]- 0310 Apr, 2014 [facility] [place] [facility] [address] [id number] [place] [address]- 8934 Apr, 2014 [facility] [place] [facility] [address] [id number] [place] [address]- 8810 Apr, 2014 [facility] [place] [facility] [address] [id number] [place] [address]- 0718 Apr, 2014 [facility] [place] [facility] [address] [id number] [place] [address]- 7504 24 Apr, 2014 [facility] [place] [facility] [address] [id number] [place] [address]- 4609 24 Apr, 2014 [facility] [place] [facility] [address] [id number] [place] [address]- 2347 23 Apr, 2014 [facility] [place] [facility] [address] [id number] [place] [address]- 9432 23 Apr, 2014 [facility] [place] [facility] [address] [facility] [id number] [place] [address]- 7560 20 Apr, 2014 [facility] [place] [facility] [address] [facility] [id number] [place] [address]- 0093 20 Apr, 2014 [facility] [place] [facility] [address] [id number] [place] [address]- 2541 18 Apr, 2014 [facility] [place] [facility] [address] [id number] [place] [address]- 5472 18 Apr, 2014 [facility] [place] [facility] [address] [facility] [id number] [place] [address]- 7086 13 Apr, 2014 [facility] [place] [facility] [address] [facility] [id number] [place] [address]- 5298 Apr, 2014 [facility] [place] [facility] [address] [id number] [place] [address]- 0109 Apr, 2014 [facility] [place] [facility] [address] [facility] [id number] [place] [address]- 9836 Apr, 2014 [facility] [place] [facility] [address] [facility] [id number] [place] [address]- 3978 Apr, 2014 [facility] [place] [facility] [address] [facility] [id number] [place] [address]- 0455 Apr, 2014 [facility] [place] [facility] [address] [facility] [id number] [place] [address]- 3048 Apr, 2014 [facility] [place] [facility] [address] [facility] [id number] [place] [address]- 6904 Apr, 2014 [facility] [place] [facility] [address] [id number] [place] [address]- 0619 Apr, 2014 [facility] [place] [facility] [address] [facility] [id number] [place] [address]- 9253 Apr, 2014 [facility] [place] [facility] [address] [facility] [id number] [place] [address]- 4227 Apr, 2014 [facility] [place] [facility] [address] [facility] [id number] [place] [address]- 3286 Apr, 2014 [facility] [place] [facility] [address] [facility] [id number] [place] [address]- 9389 Apr, 2014 [facility] [place] [facility] [address] [facility] [id number] [address]- 5545 Mar, [facility] [place] [facility] [address] [facility] [id number] [place] [address]- 4504 Mar, [facility] [place] [facility] [address] [facility] [id number], [place] [address]- 7183 Mar, [facility] [place] [facility] [address] [facility] [id number], [place] [address]- 6945 Mar, [facility] [place] [facility] [address] [id number] [place] [address]- 5603 Mar, [facility] [address] [id number] [place] [address]- 4801 Mar, [facility] [place] [facility] [address] [id number] [place] [address]- 8598 Mar, [facility] [address] [id number] [place] [address]- 4814 Mar, [facility] [address] [id number] [place] [address]- 6990 Mar, [facility] [address] [id number] [place] [address]- 1553 Mar, [facility] [address] [id number] [place] [address]- 2825 Jan, [facility] [address] [id number] [place] [address]- 9178 Jan, [facility] [address] [id number] [place] [address]- 2764 Jan, [facility] [place] [facility] [address] [id number] [place] [address]- 8177 Jan, [facility] [place] [facility] [address] [id number] [place] [address]- 8529 Jan, [facility] [place] [facility] [address] [id number] [place] [address]- 8200 Jan, [facility] [place] [facility] [address] [id number] [place] [address]- 2547 Jan, [facility] [place] [facility] [address] [id number] [place] [address]- 8304 Jan, [facility] [place] [facility] [address] [id number] [place] 3278 Jan, [facility] [place] [facility] [address] [id number] [place] [address]- 2187 Jan, [facility] [place] [facility] [address] [id number] [place] [address]- 7629 Jan, [facility] [place] [facility] [address] [id number] [place] [address]- 2159 Jan, [facility] [place] [facility] [address] [id number] [place] [address]- 6817 Dec, [facility] [place] [facility] [address] [id number] [place] [address]- 9697 Dec, [facility] [place] [facility] [address] [id number] [place] [address]- 2707 Dec, [facility] [place] [facility] [address] [id number] [place] [address]- 6232 Dec, [facility] [place] [facility] [address] [id number] [place] [address]- 5432 Dec, [facility] [place] [facility] [address] [id number] [place] [address]- 6861 Dec, [facility] [place] [facility] [address] [id number] [place] [address]- 7789 Dec, [facility] [place] [facility] [address] [id number] [place] [address]- 0987 Dec, [facility] [place] [facility] [address] [id number] [place] [address]- 5096 Dec, [facility] [place] [facility] [address] [id number] [place] [address]- 5651 Dec, [facility] [place] [facility] [address] [id number] [place] [address]- 0996 Nov, [facility] [place] [facility] [address] [id number] [place] [address]- 0179 Nov, [facility] [place] [facility] [address] [id number] [place] [address]- 8288 Nov, [facility] [place] [facility] [address] [id number] [place] [address]- 3931 Nov, 2013 [facility] [place] [facility] [address] [id number] [place] [address]- 5649 Nov, 2013 [facility] [place] [facility] [address] [id number] [place] [address]- 6530 Nov, [facility] [place] [facility] [address] [id number] [place] [address]- 0964 Nov, [facility] [place] [facility] [address] [id number] [place] [address]- 8430 Nov, [facility] [place] [facility] [address] [id number] [place] [address]- 3546 Nov, [facility] [place] [facility] [address] [id number] [place] [address]- 7797 Nov, [facility] [place] [facility] [address] [id number] [place] [address]- 2706 Nov, [facility] [place] [facility] [address] [id number] [place] [address]- 0194 Nov, [facility] [place] [facility] [address] [id number] [place] [address]- 9299 Nov, [facility] [place] [facility] [address] [id number] [place] [address]- 6489 14 Nov, 2013 [facility] [place] [facility] [address] [id number] [place] [address]- 4624 10 Nov, 2013 [facility] [place] [facility] [address] [id number] [place] [address]- 2358 10 Nov, 2013 [facility] [place] [facility] [address] [id number] [place] [address]- 7602 08 Nov, 2013 [facility] [place] [facility] [address] [id number] [place] [address]- 8181 08 Nov, 2013 [facility] [place] [facility] [address] [id number] [place] [address]- 4632 Nov, [facility] [place] [facility] [address] [id number] [place] [address]- 9961 Nov, [facility] [place] [facility] [address] [id number] [place] [address]- 1814 Oct, [facility] [place] [facility] [address] [id number] [place] [address]- 8843 Oct, [facility] [place] [facility] [address] [id number] [place] [address]- 1668 Oct, [facility] [place] [facility] [address] [id number] [place] [address]- 5783 Oct, [facility] [place] [facility] [address] [id number] [place] [address]- 0227 Oct, [facility] [place] [facility] [address] [id number] [place] [address]- 8488 Oct, [facility] [place] [facility] [address] [id number] [place] [address]- 9687 Oct, [facility] [place] [facility] [address] [id number] [place] [address]- 8063 Oct, [facility] [place] [facility] [address] [id number] [place] [address]- 0419 Oct, [facility] [place] [facility] [address] [id number] [place] [address]- 3868 Oct, [facility] [place] [facility] [address] [id number], [place] [address]- 6832 Sep, [facility] [place] [facility] [address] [id number] [place] [address]- 3043 Sep, [facility] [place] [facility] [address] [id number] [place] [address]- 8260 Sep, [facility] [place] [facility] [address] [id number] [place] [address]- 4701 Sep, [facility] [place] [facility] [address] [id number], [place] [address]- 4544 Sep, [facility] [place] [facility] [address] [id number] [place] [address]- 7325 Sep, [facility] [place] [facility] [address] [id number] [place] [address]- 1908 Sep, [facility] [place] [facility] [address] [id number] [place] [address]- 8475 Sep, [facility] [place] [facility] [address] [id number] [place] [address]- 1035 Sep, [facility] [place] [facility] [address] [id number] [place] [address]- 7026 Sep, [facility] [place] [facility] [address] [id number] [place] [address]- 6513 Sep, [facility] [place] [facility] [address] [id number] [place] [address]- 9680 Sep, [facility] [place] [facility] [address] [id number] [place] [address]- 9510 Sep, [facility] [place] [facility] [address] [id number] [place] [address]- 6087 Sep, [facility] [place] [facility] [address] [id number] [place] [address]- 5063 Sep, [facility] [place] [facility] [address] [id number] [place] [address]- 5235 Sep, [facility] [place] [facility] [address] [id number] [place] [address]- 7938 Sep, [facility] [place] [facility] [address] [id number] [place] [address]- 4211 Sep, [facility] [place] [facility] [address] [id number] [place] [address]- 9296 Sep, [facility] [place] [facility] [address] [id number] [place] [address]- 1502 Sep, [facility] [place] [facility] [address] [id number] [place] [address]- 1981 Sep, [facility] [place] [facility] [address] [id number] [place] [address]- 9826 Sep, [facility] [place] [facility] [address] [id number] [place] 8911 Sep, [facility] [place] [facility] [address] [id number] [place] [address]- 5228 Sep, [facility] [place] [facility] [address] [id number] [place] [address]- 5518 Sep, [facility] [place] [facility] [address] [id number] [place] [address]- 3768 Aug, [facility] [place] [facility] [address] [id number] [place] [address]- 2664 Aug, [facility] [place] [facility] [address] [id number] [place] [address]- 7835 Aug, [facility] [place] [facility] [address] [id number] [place] [address]- 9177 Aug, [facility] [place] [facility] [address] [id number] [place] [address]- 0266 Aug, [facility] [place] [facility] [address] [id number] [place] [address]- 8869 Aug, [facility] [place] [facility] [address] [id number] [place] [address]- 0077 Aug, [facility] [place] [facility] [address] [id number] [place] [address]- 1742 Aug, [facility] [place] [facility] [address] [id number] [place] [address]- 9206 Aug, [facility] [place] [facility] [address] [id number] [place] [address]- 4433 Aug, [facility] [place] [facility] [address] [id number] [place] [address]- 2831 Aug, [facility] [place] [facility] [address] [id number] [place] [address]- 4845 Aug, [facility] [place] [facility] [address] [id number] [place] [address]- 7047 Aug, [facility] [place] [facility] [address] [id number] [place] [address]- 9766 Jul, [facility] [place] [facility] [address] [id number] [place] [address]- 2279 Jul, [facility] [place] [facility] [address] [id number] [place] [address]- 1706 Jul, [facility] [place] [facility] [address] [id number] [place] [address]- 5179 Jul, [facility] [place] [facility] [address] [id number] [place] [address]- 3890 Jul, [facility] [place] [facility] [address] [id number] [place] [address]- 6827 Jul, [facility] [place] [facility] [address] [id number] [place] [address]- 2664 Jul, [facility] [place] [facility] [address] [id number] [place] [address]- 1945 June, [facility] [place] [facility] [address] [id number] [place] [address]- 6283 June, [facility] [place] [facility] [address] [id number] [place] [address]- 7514 June, [facility] [place] [facility] [address] [id number] [place] [address]- 2541 June, [facility] [place] [facility] [address] [id number] [place] [address]- 3661 May, [facility] [place] [facility] [address] [id number] [place] [address]- 9166 May, [facility] [place] [facility] [address] [id number] [place] [address]- 7148 09 May, 2013 [facility] [place] [facility] [address] [id number] [place] [address]- 3114 May, [facility] [place] [facility] [address] [id number] [place] [address]- 4345 May, [facility] [place] [facility] [address] [id number] [place] 7647 May, [facility] [place] [facility] [address] [id number] [place] [address]- 4530 May, [facility] [place] [facility] [address] [id number] [place] [address]- 4752 May, [facility] [place] [facility] [address] [facility] [id number] [place] [address]- 8241 May, [facility] [place] [facility] [address] [facility] [id number] [place] [address]- 8880 May, [facility] [place] [facility] [address] [facility] [id number] [place] [address]- 8026 Apr, [facility] [place] [facility] [address] [id number] [place] [address]- 1914 Apr, [facility] [place] [facility] [address] [facility] [id number] [place] [address]- 7919 Apr, [facility] [place] [facility] [address] [facility] [id number] [place] [address]- 3538 Apr, [facility] [place] [facility] [address] [facility] [id number] [place] [address]- 1931 Apr, [facility] [place] [facility] [address] [id number] [place] [address]- 6882 Apr, [facility] [place] [facility] [address] [facility] [id number] [place] [address]- 4021 Apr, [facility] [place] [facility] [address] [facility] [id number] [place] 9524 Apr, [facility] [address] [id number] [place] [address]- 1499 Apr, [facility] [place] [facility] [address] [id number] [place] [address]- 1708 Apr, [facility] [place] [facility] [address] [id number] [place] [address]- 1258 Mar, [facility] [place] [facility] [address] [id number] [place] [address]- 7835 Mar, [facility] [place] [facility] [address] [id number] [place] [address]- 9859 Mar, [facility] [place] [facility] [address] [id number] [place] [address]- 7420 Mar, [facility] [place] [facility] [address] [facility] [id number] [place] [address]- 5169 Mar, [facility] [place] [facility] [address] [id number] [place] [address]- 4750 Mar, [facility] [place] [facility] [address] [id number] [place] [address]- 1798 Jan, [facility] [place] [facility] [address] [id number] [place] [address]- 6503 Jan, [facility] [place] [facility] [address] [id number], [place] [address]- 1724 Jan, [facility] [place] [facility] [address] [id number], [place] [address]- 7666 Jan, [facility] [place] [facility] [address] [id number] [place] 5020 Jan, [facility] [place] [facility] [address] [id number] [id number] [address] Jan, [facility] [place] [facility] [address] [facility] [id number] [place] [address] Jan, [facility] [place] [facility] [address] [id number] [place] [address] Jan, [facility] [address] [id number] [place] [address] Jan, [facility] [place] [facility] [address] [id number] [place] [address] Dec, [facility] [address] [id number] [place] [address] 1006 Dec, [facility] [place] [facility] [address] [id number] [place] [address] 12[address] Dec, [facility] [place] [facility] [address] [id number] [place] [address] 9530 Dec, [facility] [place] [facility] [address] [id number] [place] [address] Dec, [facility] [address] [id number] [place] [address]- [address] Dec, [facility] [place] [facility] [address] [id number] [place] [address] Dec, [facility] [place] [facility] [address] [id number] [place] [address] 2828 Dec, [facility] [place] [facility] [address] [facility] [id number] [place] [address] Dec, [facility] [place] [facility] [address] [id number] [place] [address] 8408 Dec, [facility] [place] [facility] [address] [id number], [place] [address] Dec, [facility] [place] [facility] [address] [id number] [place] [address] Nov, [facility] [place] [facility] [address] [id number] [place] [address]643 Nov, [facility] [place] [facility] [address] [id number], [place] [address] Nov, [facility] [place] [facility] [address] [id number] [place] [address] 68[address] Nov, [facility] [address] [id number] [place] [address] 1639 Nov, [facility] [place] [facility] [address] [id number] [place] [address] 2546 Oct, [facility] [place] [facility] [address] [id number] [place] [address] 1332 Oct, [facility] [place] [facility] [address] [id number] [place] [address] Sep, [facility] [place] [facility] [address] [id number] [place] [address] 6058 Aug, [facility] [place] [facility] [address] [id number] [place] [address] 5633 Aug, [facility] [place] [facility] [address] [id number] [place] [address] Aug, [facility] [place] [facility] [address] [id number] [place] [address] 6163 Aug, [facility] [place] [facility] [address] [id number] [place] [address] Jul, [facility] [place] [facility] [address] [id number] [place] [address] Jul, [facility] [place] [facility] [address] [id number] [place] [address] 4[address] June, [facility] [place] [facility] [address] [id number] [place] [address] 67[address] June, [facility] [place] [facility] [address] [id number] [place] [address] 33[address] June, [facility] [place] [facility] [address] [id number] [place] [address] 9027 May, [facility] [place] [facility] [address] [id number], [place] [address] May, [facility] [address] [facility] [id number] [place] [address] 2183 May, [facility] [address] [id number] [place] [address]- 1181 18 Apr, 2012 [facility] [address] [facility] [id number] [place] [address]- 7964 18 Apr, 2012 [facility] [address] [id number] [place] [address] 0133 15 Apr, 2012 [facility] [address] [id number] [place] [address] 9708 14 Apr, 2012 [facility] [address] [facility] [id number] [place] [address]- 8620 12 Apr, 2012 [facility] [address] [facility] [id number] [place] [address] 4365 27 Apr, 2012 [facility] [address] [facility] [id number] [place] [address] 30[address] Apr, [facility] [address] [facility] [id number] [place] [address] Apr, [facility] [address] [facility] [id number] [place] [address]- 0083 Apr, [facility] [address] [facility] [id number], [place] [address] Apr, [facility] [place] [facility] [address] [facility] [id number], [place] [address] 19 Apr, 2012 [facility] [place] [facility] [address] [facility] [id number], [place] [address]78 07 Apr, 2012 [facility] [place] [facility] [address] [facility] [id number], [place] [address] 07 Apr, 2012 [facility] [place] [facility] [address] [facility] [id number], [place] [address] Mar, [facility] [place] [facility] [address] [id number] [place] [address]- 2255 Mar, [facility] [address] [id number] [place] [address]- 0957 Mar, [facility] [address] [id number] [place] [address]- 7826 Mar, [facility] [address] [id number] [place] [address] 4740 Mar, [facility] [address] [id number] [place] [address]- 8167 Jan, [facility] [address] [id number] [place] [address]- 3694 Jan, [facility] [address] [id number] [place] [address] 8169 Jan, [facility] [address] [id number] [place] [address]- 6657 Jan, [facility] [address] [id number] [place] [address]- 7965 14 Jan, 2012 [facility] [address] [id number] [place] [address]- 4709 Jan, [facility] [address] [id number] [place] [address]- 5472 Jan, [facility] [address] [id number] [place] [address]- 8634 Jan, [facility] [address] [id number] [place] [address]- 8710 06 Jan, 2012 [facility] [place] [facility] [address] [id number] [place] [address]- 9280 06 Jan, 2012 [facility] [place] [facility] [address] [id number] [place] [address]- 7509 04 Jan, 2012 [facility] [place] [facility] [address] [id number], [place] [address] 1747 04 Jan, 2012 [facility] [place] [facility] [address] [id number] [place] [address]- 8924 04 Jan, 2012 [facility] [place] [facility] [address] [id number] [place] [address]395 04 Jan, 2012 [facility] [place] [facility] [address] [facility] [id number] [place] [address]- 7971 Dec, [facility] [place] [facility] [address] [id number], [place] [address] 0763 26 Jan, 2012 [facility] [place] [facility] [address] [id number] [place] [address]- 4140 Dec, [facility] [place] [facility] [address] [id number] [place] [address]- 3850 19 Jan, 2012 [facility] [place] [facility] [address] [id number], [place] [address]- 9355 15 Jan, 2012 [facility] [place] [facility] [address] [id number], [place] [address]- 4372 15 Jan, 2012 [facility] [place] [facility] [address] [id number], [place] [address]- 9172 14 Jan, 2012 [facility] [place] [facility] [address] [id number], [place] [address]- 2277 14 Jan, 2012 [facility] [place] [facility] [address] [id number], [place] [address]- 0825 14 Jan, 2012 [facility] [place] [facility] [address] [id number], [place] [address]- 8753 14 Jan, 2012 [facility] [place] [facility] [address] [id number][place] [address] 07 Jan, 2012 [facility] [place] [facility] [address] [facility] [id number], [place] [address] 07 Jan, 2012 [facility] [place] [facility] [address] [facility] [id number], [place] [address] 16 Dec, 2011 [facility] [place] [facility] [address] [id number] [place] [address] 16 Dec, 2011 [facility] [address] [id number] [place] [address] 13 Nov, 2011 [facility] [address] [id number] [place] [address] 13 Nov, 2011 [facility] [address] [id number] [place] [address] 13 Nov, 2011 [facility] [address] [id number] [place] [address] 12 Nov, 2011 [facility] [address] [id number] [place] [address] 30 Oct, 2011 [facility] [address] [id number] [place] [address] Sep, [facility] [address] [id number] [place] [address] Aug, [facility] [address] [id number] [place] [address] Aug, [facility] [address] [id number] [place] [address] Aug, [facility] [address] [id number] [place] [address] Aug, [facility] [address] [id number] [place] [address] June, [facility] [address] [id number] [place] [address] June, [facility] [place] [facility] [address] [id number] [place] [address] May, [facility] [place] [facility] [address] [id number] [place] [address] Apr, [facility] [address] [id number] [place] [address] Apr, [facility] [address] [id number] [place] [address] Apr, [facility] [place] [facility] [address] [id number] [place] [address] 8666 Apr, [facility] [place] [facility] [address] [id number] [place] [address] Apr, [facility] [place] [facility] [address] [id number] [place] [address] 9186 Apr, [facility] [address] [id number] [place] [address] Mar, [facility] [place] [facility] [address] [id number] [place] [address] Mar, [facility] [place] [facility] [address] [id number] [place] [address] Mar, [facility] [address] [id number] [place] [address] Jan, [facility] [place] [facility] [address] [id number] [place] [address] Jan, [facility] [place] [facility] [address] [id number] [place] [address] Jan, [facility] [place] [facility] [address] [id number] [place] [address] 5266 Jan, [facility] [place] [facility] [address] [id number] [place] [address] 8456 Jan, [facility] [place] [facility] [address] [id number] [place] [address] 9546 Jan, [facility] [place] [facility] [address] [id number] [place] [address]26 Jan, [facility] [place] [facility] [address] [id number] [place] [address] 1656 Dec, [facility] [place] [facility] [address] [id number] [place] [address] 269[address] Dec, [facility] [place] [facility] [address] [id number] [place] [address] 8729 18 Nov, 2010 [facility] [place] [facility] [address] [id number] [place] [address] 18 Nov, 2010 [facility] [place] [facility] [address] [id number] [place] [address] Nov, [facility] [place] [facility] [address] [id number] [place] [address] 7[address] Nov, [facility] [place] [facility] [address] [id number] [place] [address], [place] [address] Oct, [facility] [place] [facility] [address] [id number] [place] [address] 77[address] Sep, [facility] [place] [facility] [address] [id number] [place] [address] 79[address] Mar, [facility] [place] [facility] [address] [id number] [place] [address] 0[address] Jan, [facility] [place] [facility] [address] [id number] [place] [address]- 264[address] Dec, [facility] [place] [facility] [address] [id number] [place] [address] 8814 Dec, [facility] [place] [facility] [address] [id number] [place] [address]- [address] Dec, [facility] [place] [facility] [address] [id number] [place] [address]- 7548 Dec, [facility] [place] [facility] [address] [id number] [place] [address] 35[address] Nov, [facility] [place] [facility] [address] [id number] [place] [address]- 9763 15 Nov, 2009 [facility] [place] [facility] [address] [id number] [place] [address] 3734 14 Nov, 2009 [facility] [place] [facility] [address] [id number] [place] [address] 56[address] 14 Nov, 2009 [facility] [address] [id number] [place] [address]- 6006 13 Oct, 2009 [facility] [place] [facility] [address] [id number] [place] [address] 2546 17 Jul, 2009 [facility] [place] [facility] [address] [id number] [place] [address] 2546 June, [facility] [place] [facility] [address] [id number] [place] [address] 2547 June, [facility] [place] [facility] [address] [id number] [place] [address] 4[address] Apr, [facility] [place] [facility] [address] [id number] [place] [address] 55[address] Mar, [facility] [address] [id number] [place] [address]- 3736 Jan, [facility] [address] [id number] [place] [address] 6[address] Jan, [facility] [address] [id number] [place] [address] 27 Dec, 2008 [facility] [place] [facility] [address] [id number] [place] [address] 5117 25 Dec, 2008 [facility] [place] [facility] [address] [id number], [place] [address] 13 Dec, 2008 [facility] [place] [facility] [address] [id number] [place] [address]- 5480 13 Dec, 2008 [facility] [place] [facility] [address] [id number] [place] [address] 2546 30 Nov, 2008 [facility] [place] [facility] [address] [id number] [place] [address] 2541 12 Jul, 2008 [facility] [place] [facility] [address] [id number] [place] [address] June, IMMUNIZATIONS No Known Immunizations SOCIAL HISTORY Never Assessed REASON FOR VISIT cough for over a month. worse at noc. reports he has nasal spray...but hasnt used it et thinks he has drainage down the back of his throat. melissa, instructed pt to use nasal spray, increase fluids, get plenty of rest, OTC cough meds, et make an appt with pcp. pt verbalized understanding PLAN OF CARE VITAL SIGNS Height 69 in 2018-01-01 Weight 339.4 lbs 2018-01-01 Temperature 98.0 degrees Fahrenheit 2018-01-01 Heart Rate 70 bpm 2018-01-01 Respiratory Rate 22 2018-01-01 BMI 50.12 kg/m2 2018-01-01 Blood pressure systolic 138 mmHg 2018-01-01 Blood pressure diastolic 82 mmHg 2018-01-01 MEDICATIONS Medication Instructions Dosage Frequency Start Date End Date Duration Status Duloxetine HCl 60 MG Orally Once a day 1 capsule 24h 14 Dec, 2015 Active Allopurinol 100 MG TAKE 1 TABLET BY MOUTH DAILY 30 Active Multivitamin BID May, Active Diclofenac Sodium 75 MG TAKE 1 TABLET WITH FOOD OR MILK TWICE DAILY 90 Active Clonazepam 1 MG Orally Once a day as needed for anxiety 1 tablet June, 28 days Active Metoprolol Tartrate 25 MG TAKE 1 TABLET BY MOUTH TWICE A DAY 30 Active Nystatin 847183 UNIT/GM Externally Twice a day 1 application to affected area 12h June, Active DiphenhydrAMINE HCl 50 MG Orally Once a day 1 capsule at bedtime as needed 24h Active Diclofenac Sodium 75 MG Orally 2 times a day 1 tablet with food or milk 12h 90 Active Garlic 1,000 mg 3 Capsule 2 times per day Dec, Active Tizanidine HCl 4 MG TAKE 1 TABLET BY MOUTH THREE TIMES DAILY TO FOUR TIMES DAILY NEEDED 23 Active Fluticasone Propionate 50 MCG/ACT INSTILL 1 SPRAY INTO EACH NOSTRIL ONCE A DAY 60 Active Fosamax 70 MG Orally once weekly 1 tablet Dec, 90 days Active Clobetasol Propionate 0.05 % Externally Twice a day 1 application to affected area 12h Sep, Active Endocet 10-325 MG Orally every 4-6 hours 1 tablet as needed Oct, 28 days Active Omeprazole 20 MG TAKE 1 CAPSULE BY MOUTH TWICE DAILY 90 Active Viagra 25 MG Orally 0.5-4 hours before intercourse, up to once per day 1 tablet Sep, Active Flomax 0.4 MG 1 capsule 30 minutes after the same meal each day twice a day Orally 90 days 90 Active ProAir HFA 108 (90 Base) MCG/ACT Inhalation every 6 hrs 2 puffs as needed 6h Apr, Active Docusate Sodium 100 MG Orally Once a day 1 capsule as needed 24h Active RESULTS No Results PROCEDURES No Known procedures INSTRUCTIONS MEDICATIONS ADMINISTERED No Known Medications MEDICAL (GENERAL) HISTORY Type Description Date Medical History hypertension Medical History sleep apnea-did not tolerate CPAP Medical History oxygen dependent at [facility] Medical History colonic polyps Medical History [...]
--- OUTSIDE RECORDS SUMMARY | 2018-02-26 19:49 | XMS REPORT ---
Author Author [facility]AS [facility] Address [address] [place] [address] Care Team Providers Care Engineer Automated Equipment Name Role Phone PARAS NAZARIO Unavailable PROBLEMS Type Condition ICD9-CM Code CMI55-IZ Code Onset Dates Condition Status SNOMED Code Problem Pulmonary asbestosis J61 Active 39878268 Problem Left ventricular diastolic dysfunction I51.9 Active 278992129 Problem Chronic gout, unspecified cause, unspecified site M1A.[id number] Active 41987807 Problem Renal cyst, left N28.1 Active 09800900 Problem History of weight loss surgery Z98.84 Active 252605080 Problem Nocturnal hypoxia G47.34 Active 523923044 Problem Obstructive sleep apnea syndrome G47.33 Active 22618007 Problem History of diverticulitis Z87.19 Active 242950603254762 Problem Allergic rhinitis, unspecified allergic rhinitis type J30.9 Active 32630955 Problem Erectile dysfunction due to diseases classified elsewhere N52.1 Active 711513112 Problem Acute right-sided low back pain with right-sided sciatica M54.41 Active 710932030 Problem Psoriasis L40.9 Active 3281755 Problem Essential hypertension I10 Active 60548761 Problem Nephrolithiasis N20.0 Active 12894411 Problem Chronic prescription opiate use Z79.899 Active 254636229 Problem 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 Active 56644038 Problem Benign prostatic hyperplasia, presence of lower urinary tract symptoms unspecified, unspecified morphology N40.0 Active 356014165 Problem Moderate episode of recurrent major depressive disorder F33.1 Active 044026402 Problem Age-related osteoporosis without current pathological fracture M81.0 Active 74241054 Problem Low back pain M54.5 Active 534078962 Problem Anxiety F41.9 Active 16593709 Problem Urge incontinence N39.41 Active 144160269 Problem Hyperlipidemia, unspecified E78.5 Active 47293625 Problem Esophageal stricture K22.2 Active 50983624 Problem Cervicalgia M54.2 Active 7608681932477 Problem Primary insomnia F51.01 Active 148409777 ALLERGIES Substance Reaction Event Type Date Status Sulfamethoxazole-Trimethoprim nausea Drug Allergy Nov, Active Penicillin V Potassium rash Drug Allergy Nov, Active Benazepril HCl hypotension Drug Allergy Nov, Active ENCOUNTERS Encounter Location Date Diagnosis [facility] [id number] [place] [address] 59253- 0738 Dec, [facility] [id number] [place] [address] 64307 -6273 Nov, BMI 50.0-59.9, adult Z68.43 [facility] [address] 54592- 8643 Nov, [facility] [place] [address] 85127- 0998 Nov, [facility] [place] [address] 29334- 9683 Nov, Anxiety F41.9 [facility] [place] [address] 50167- 5347 Oct, [facility] [place] [address] 90173- 9167 Oct, [facility] [id number] [place] [address] 96214- 7193 Oct, BMI 45.0-49.9, adult Z68.42 ; Essential hypertension I10 ; Hyperlipidemia, unspecified E78.5 ; Anxiety F41.9 ; Obstructive sleep apnea syndrome G47.33 ; Moderate episode of recurrent major depressive disorder F33.1 ; Left ventricular diastolic dysfunction I51.9 ; Acute pain of right shoulder M25.511 ; Pain of left foot M79.672 and Pain in right foot M79.671 [facility] [id number] [place] [address] 13663- 9851 12 Oct, 2017 Anxiety F41.9 [facility] [id number] [place] [address] 65373 -0758 Sep, Left foot pain M79.672 [facility] [id number] [place] [address] 73552- 2083 Sep, [facility] [id number] [place] [address] 49567- 2256 Sep, Anxiety F41.9 [facility] [id number] [place] [address] 44890 2546 Sep, [facility] [id number] [place] [address] 48792- 5575 Aug, [facility] [id number] [place] [address] 14884- 9319 Aug, [facility] [id number] [place] [address] 80997- 0562 Aug, Anxiety F41.9 [facility] [id number] [place] [address] 01534- 5206 Aug, [facility] [id number] [place] [address] 56754- 9961 Jul, [facility] [id number] [place] [address] 81407- 1488 Jul, Anxiety F41.9 [facility] [place] [id number] [place] [address] 30399- 7722 June, Anxiety F41.9 [facility] [id number] [place] [address] 80714- 9216 June, [facility] [place] [id number] [place] [address] 55953- 0963 June, Low back pain M54.5 ; Chronic prescription opiate use Z79.899 ; Candidal intertrigo B37.2 ; Urge incontinence N39.41 ; Essential hypertension I10 ; Moderate episode of recurrent major depressive disorder F33.1 ; Age-related osteoporosis without current pathological fracture M81.0 and BMI 45.0-49.9, adult Z68.42 [facility] [address] [address] 3002 June, [facility] [id number] [place] [address] 31017- 5206 May, Anxiety F41.9 [facility] [id number] [place] [address] 65876- 7056 May, [facility] [id number] [place] [address] 91757- 9779 May, [facility] [id number] [place] [address] 27604- 1363 Apr, Anxiety F41.9 [facility] [id number] [place] [address] 40545- 4366 Apr, [facility] [id number] [place] [address] 94597- 8635 Apr, Low back pain M54.5 [facility] [place] [id number] [place] [address] 14490- 5160 Apr, [facility] [id number] [place] [address] 06522- 5971 Apr, [facility] [place] [id number] [place] [address] 91529- 4533 Apr, Anxiety F41.9 [facility] [id number] [place] [address] 01153- 5257 Apr, Right groin pain R10.31 [facility] [id number] [place] [address] 85372- 9546 Mar, [facility] [id number] [place] [address] 22281- 5341 Mar, [facility] [id number] [place] [address] 07730- 1348 Mar, Anxiety F41.9 [facility] [id number] [place] [address] 63490- 7752 Mar, Low back pain M54.5 [place] [address] 03178- 1917 Mar, Right groin pain R10.31 ; Low back pain M54.5 and BMI 45.0- 49.9, adult Z68.42 [place] [address] 41078- 7561 Mar, [facility] [id number] [place] [address] 18193- 7077 Mar, [place] [address] 93757- 5550 Mar, [facility] [address] 69784 -0843 Mar, [facility] [id number] [place] [address] 28003 -4198 Mar, Cough R05 ; Pneumonia of right lower lobe due to infectious organism J18.1 and Abnormal chest x-ray R93.8 [facility] [facility] [id number] [place] [address] 85774- 8378 Mar, [facility] [id number] [place] [address] 15226- 9905 Mar, [facility] [id number] [place] [address] 91370- 7370 Jan, Anxiety F41.9 [facility] [place] [id number] [place] [address] 72920- 8012 Jan, [facility] [id number] [place] [address] 54095- 0005 Jan, Moderate episode of recurrent major depressive disorder F33.1 [facility] [id number] [place] [address] 94522- 6617 Jan, Subacromial bursitis of right shoulder joint M75.51 ; Shortness of breath on exertion R06.02 and BMI 45.0-49.9, adult Z68.42 [facility] [place] [address] 71515- 0678 Dec, Anxiety F41.9 [facility] [id number] [place] [address] 76908- 0865 Dec, [facility] [address] 59496- 9747 Dec, Low back pain M54.5 [facility] [address] 53668- 2057 Oct, Low back pain M54.5 [facility] [address] 98748- 1909 Sep, [facility] [address] 35656- 5904 Sep, Erectile dysfunction due to diseases classified elsewhere N52.1 [facility] [address] 23486- 8604 Sep, Erectile dysfunction due to diseases classified elsewhere N52.1 [facility] [id number] [place] [address] 58843- 4697 Sep, [facility] [id number] [place] [address] 29105- 4495 Sep, Erectile dysfunction due to diseases classified elsewhere N52.1 [facility] [id number] [place] [address] 84021- 5110 Sep, Low back pain M54.5 and Anxiety F41.9 [facility] [address] 49548 -0146 Aug, Acute allergic rhinitis J30.9 [facility] [id number] [place] [address] 45868- 9702 Aug, [facility] [address] [place] [address]- 8425 Aug, Anxiety F41.9 [facility] [address] 21911- 2559 Jul, Low back pain M54.5 ; Chronic prescription opiate use Z79.899 and Essential hypertension I10 [facility] [id number] [place] [address] 27088- 3046 Jul, Anxiety F41.9 and Low back pain M54.5 [facility] [id number] [place] [address] 39445- 6289 June, [facility] [address] 75671- 1311 June, Anxiety F41.9 [facility] [id number] [place] [address] 78273- 8708 May, Low back pain M54.5 [facility] [id number] [place] [address] 84924- 3315 May, [facility] [id number] [place] [address] 77586- 4835 May, Anxiety F41.9 [facility] [id number] [place] [address] 40874- 8567 Apr, [facility] [id number] [place] [address] 79343- 7244 Apr, Low back pain M54.5 [facility] [id number] [place] [address] 45016- 6895 Apr, Moderate episode of recurrent major depressive disorder F33.1 [facility] [id number] [place] [address] 08224- 3316 Apr, Anxiety F41.9 [facility] [id number] [place] [address] 77984- 1225 Apr, Low back pain M54.5 [facility] [id number] [place] [address] 23249- 3071 15 Apr, 2016 Elevated alkaline phosphatase level R74.8 [place] [address] 66127- 6265 10 Apr, 2016 Alkaline phosphatase elevation R74.8 [place] [address] 08211- 4865 06 Apr, 2016 Anxiety F41.9 [place] [address] 59287- 2363 Apr, Low back pain M54.5 [place] [address] 88525- 6338 Apr, History of weight loss surgery Z98.84 ; Encounter for hepatitis C screening test for low risk patient Z11.59 ; History of herpes genitalis Z86.19 ; Essential hypertension I10 ; Hyperlipidemia, unspecified E78.5 ; Exposure to STD Z20.2 and Benign prostatic hyperplasia, presence of lower urinary tract symptoms unspecified, unspecified morphology N40.0 [facility] [id number] [place] [address] 39672- 1171 Apr, [place] [address] 18795- 4198 Mar, [place] [id number] [place] [address] 36645- 4218 Mar, [place] [id number] [place] [address] 33699- 8845 Mar, [place] [id number] [place] [address] 38887- 4955 Mar, Acute right-sided low back pain with right-sided sciatica M54.41 [facility] [id number] [place] [address] 73861- 2576 Mar, Low back pain M54.5 [facility] [address] 24078 -1660 Mar, Muscle strain of chest wall, initial encounter S29.011A ; Muscle strain of right thigh, initial encounter S76.911A and Acute non- recurrent maxillary sinusitis J01.00 [place] [id number] [place] [address] 65030- 0699 Mar, Benign prostatic hyperplasia, presence of lower urinary tract symptoms unspecified, unspecified morphology N40.0 [place] [id number] [place] [address] 00149- 6658 Jan, Low back pain M54.5 [place] [id number] [place] [address] 98040- 9699 Jan, Low back pain M54.5 ; Essential hypertension I10 ; Hyperlipidemia, unspecified E78.5 ; Anxiety F41.9 ; Moderate episode of recurrent major depressive disorder F33.1 ; Primary insomnia F51.01 ; Exposure to STD Z20.2 ; Encounter for hepatitis C screening test for low risk patient Z11.59 and History of herpes genitalis Z86.19 [place] [id number] [place] [address] 02831- 6778 Dec, [place] [id number] [place] [address] 05703- 9595 Nov, [place] [id number] [place] [address] 44513- 2277 Nov, Anxiety F41.9 ; Cervicalgia M54.2 ; Moderate episode of recurrent major depressive disorder F33.1 and Encounter for immunization Z23 [place] [id number] [place] [address] 16082- 7757 Oct, [place] [id number] [place] [address] 94587- 3529 Oct, [place] [id number] [place] [address] 29543- 2218 16 Nov, 2015 [place] [id number] [place] [address] 76656- 2696 Oct, [facility] [address] [place] [address]- 9087 Sep, [facility] [id number] [place] [address] 32816- 6634 Aug, Low back pain M54.5 ; Anxiety F41.9 ; Primary insomnia F51.01 and Chronic prescription opiate use Z79.899 [facility] [id number] [place] [address] 76940- 8107 Jul, [facility] [address] [address]- 1278 Jul, [facility] [id number] [place] [address] 35934- 7656 Jul, [facility] [id number] [place] [address] 85131- 1158 Jul, [facility] [id number] [place] [address] 12550- 8568 Jul, [facility] [address] [place] [address]- 5248 June, [facility] [id number] [place] [address] 01786- 8661 June, [facility] [address] [address]- 7051 June, [facility] [address] [address]- 2549 June, [facility] [address] [place] [address]- 3538 May, Preoperative cardiovascular examination Z01.810 [facility] [address] [place] [address]- 3618 May, [facility] [address] [place] [address]- 8942 Apr, [facility] [id number] [place] [address] 42004- 1553 31 May, 2015 Osteoarthritis of right knee M17.9 [facility] [id number] [place] [address] 71267- 8844 30 May, 2015 [facility] [id number] [place] [address] 48893- 0005 16 May, 2015 [facility] [address] 97847- 4410 11 May, 2015 [facility] [id number] [place] [address] 61730- 8328 09 May, 2015 [facility] [id number] [place] [address] 31593- 8567 08 May, 2015 History of excessive cerumen Z78.9 ; Obstructive sleep apnea syndrome G47.33 ; History of diverticulitis Z87.19 and Nephrolithiasis N20.0 [facility] [id number] [place] [address] 67387- 0238 29 Apr, 2015 [facility] [id number] [place] [address] 11097 -2698 23 Apr, 2015 Abdominal pain R10.9 [facility] [id number] [place] [address] 55324- 5821 10 Apr, 2015 [facility] [id number] [place] [address] 05803- 1597 04 Apr, 2015 Osteoarthritis of right knee M17.9 [facility] [id number] [place] [address] 67184- 3675 Mar, [facility] [id number] [place] [address] 93574- 4116 15 Mar, 2015 [facility] [id number] [place] [address] 21517- 3233 14 Mar, 2015 [facility] [id number] [place] [address] [phone] Mar, [facility] [id number] [address] Mar, Pyelonephritis N12 ; Left-sided thoracic back pain M54.6 ; Hematuria, unspecified R31.9 and Kidney stone N20.0 [facility] [place] [id number] [place] [address] [phone]- [phone] Mar, History of weight loss surgery Z98.84 [facility] [place] [address] [address] Mar, History of weight loss surgery Z98.84 and Hyperlipidemia, unspecified E78.5 [facility] [place] [address] [address] Mar, Low back pain M54.5 ; Chronic prescription opiate use Z79.899 ; Hyperlipidemia, unspecified E78.5 ; Spasm of back muscles M62.830 and History of weight loss surgery Z98.84 [facility] [place] [id number] [place] [address] [phone] Jan, [facility] [place] [address] [address]- [address] Jan, [facility] [place] [id number] [place] [address] [phone] Jan, [facility] [place] [id number] [place] [address] [phone] Dec, [facility] [place] [id number] [place] [address] [phone] Dec, [facility] [place] [id number] [place] [address] [phone]- [phone] Dec, [facility] [place] [id number] [place] [address] [phone] Nov, [facility] [place] [id number] [place] [address] [phone]- [phone] Nov, Obstructive sleep apnea syndrome G47.33 and Pharyngoesophageal dysphagia R13.14 [facility] [place] [id number] [place] [address] [phone] Nov, [facility] [place] [id number] [place] [address] [phone]- [phone] Nov, [facility] [place] [address] [address]- [phone] Nov, [facility] [address] [id number] Oct, Dental examination V72.2 [facility] [place] [address] [address]- [address] Oct, [facility] [place] [address] [address]- 7790 Oct, [facility] [place] [address] [address]36- 5327 Oct, [facility] [place] [id number] [place] [address] 33531- 5070 Oct, [facility] [place] [address] 8[address]- 0063 Oct, BPH (benign prostatic hyperplasia) 600.00 and Urinary frequency 788.41 [facility] [place] [id number] [place] [address] 75184- 2713 Oct, [facility] [place] [id number] [place] [address] 03142- 7676 Oct, [facility] [place] [id number] [place] [address] 46234- 8314 Oct, [facility] [place] [id number] [place] [address] 08591- 5634 Sep, Cerumen impaction 380.4 ; Cerumen debris on tympanic membrane 380.4 ; Psoriasis 696.1 and MICKY (secretory otitis media) 381.4 [facility] [address] [place] [id number] Sep, Dental examination V72.2 [facility] [place] [id number] [place] [address] 56525- 5648 Sep, Fatigue 780.79 ; Irritable bowel syndrome 564.1 ; Overweight 278.02 ; Poor sleep V69.4 ; Shaking spells 781.0 and Broken tooth 873.63 [facility] [place] [id number] [place] [address] 91859- 0264 Sep, [facility] [place] [id number] [place] [address] 90102- 6833 Sep, [facility] [place] [id number] [place] [address] 54974- 7605 Aug, [facility] [place] [id number] [place] [address] 54355- 8060 Jul, [facility] [place] [id number] [place] [address] 38569- 6882 Jul, [facility] [place] [address] [address] 2067 Jul, [facility] [place] [id number] [place] [address] 01377- 5760 Jul, [facility] [place] [address] [address] June, Arthritis of knee, right 716.96 [facility] [place] [address] [address] 4316 June, [facility] [place] [address] [id number] [address] 7806 June, Elevated blood pressure reading without diagnosis of hypertension 796.2 [facility] [place] [address] [address] 5876 June, [facility] [place] [id number] [place] [address] 25315- 7286 June, [facility] [place] [facility] [address] [id number] [place] [address]- 7839 June, [facility] [place] [facility] [address] [id number] [place] [address]- 6093 June, [facility] [place] [facility] [address] [id number] [place] [address]- 2183 May, [facility] [place] [facility] [address] [id number] [place] [address]- 6012 May, [facility] [place] [facility] [address] [id number] [place] [address]- 0632 Apr, [facility] [place] [facility] [address] [id number] [place] [address]- 0943 Apr, [facility] [place] [facility] [address] [id number] [place] [address]- 2044 Apr, [facility] [place] [facility] [address] [id number] [place] [address]- 5080 Apr, [facility] [place] [facility] [address] [id number] [place] [address]- 3690 Apr, [facility] [place] [facility] [address] [id number] [place] [address]- 0130 Apr, [facility] [place] [facility] [address] [id number] [place] [address]- 6201 Apr, [facility] [place] [facility] [address] [id number] [place] [address]- 1668 Apr, [facility] [place] [facility] [address] [id number] [place] [address]- 9937 Apr, [facility] [place] [facility] [address] [id number] [place] [address]- 7956 Apr, [facility] [place] [facility] [address] [id number] [place] [address]- 0559 Apr, [facility] [place] [facility] [address] [id number] [place] [address]- 8779 Apr, 2014 [facility] [place] [facility] [address] [id number] [place] [address]- 6815 24 Apr, 2014 [facility] [place] [facility] [address] [id number] [place] [address]- 2337 24 Apr, 2014 [facility] [place] [facility] [address] [facility] [id number] [place] [address]- 4249 23 Apr, 2014 [facility] [place] [facility] [address] [id number] [place] [address]- 1309 23 Apr, 2014 [facility] [place] [facility] [address] [facility] [id number] [place] [address]- 8486 20 Apr, 2014 [facility] [place] [facility] [address] [facility] [id number] [place] [address]- 0005 20 Apr, 2014 [facility] [place] [facility] [id number] [address]- 7087 18 Apr, 2014 [facility] [place] [facility] [address] [facility] [id number] [place] [address]- 7337 18 Apr, 2014 [facility] [place] [facility] [address] [id number] [address]- 7557 13 Apr, 2014 [facility] [place] [facility] [address] [id number] [address]- 3394 13 Apr, 2014 [facility] [place] [facility] [address] [facility] [id number] [place] [address]- 5071 13 Apr, 2014 [facility] [place] [facility] [address] [facility] [id number] [place] [address]- 2549 13 Apr, 2014 [facility] [place] [facility] [address] [facility] [id number] [place] [address]- 8647 12 Apr, 2014 [facility] [place] [facility] [address] [facility] [id number] [place] [address]- 7279 12 Apr, 2014 [facility] [place] [facility] [address] [facility] [id number] [place] [address]- 4833 Apr, 2014 [facility] [place] [facility] [address] [id number] [place] [address]- 3919 Apr, 2014 [facility] [place] [facility] [address] [id number] [place] [address]- 5576 Apr, 2014 [facility] [place] [facility] [address] [id number] [place] [address]- 8015 Apr, 2014 [facility] [place] [facility] [address] [id number] [place] [address]- 9725 Apr, 2014 [facility] [place] [facility] [address] [id number] [place] [address]- 7868 Apr, 2014 [facility] [place] [facility] [address] [id number] [place] [address]- 6886 Apr, [facility] [place] [facility] [address] [facility] [id number] [place] [address]- 7953 Mar, [facility] [place] [facility] [address] [id number] [place] [address]- 2351 Mar, [facility] [place] [facility] [address] [facility] [id number] [place] [address]- 2094 Mar, [facility] [place] [facility] [address] [facility] [id number] [place] [address]- 6411 Mar, [facility] [place] [facility] [address] [facility] [id number] [place] [address]- 0677 Mar, [facility] [place] [facility] [address] [id number], [place] [address]- 2611 Mar, [facility] [place] [facility] [address] [id number], [place] [address]- 9406 Mar, [facility] [place] [facility] [address] [facility] [id number], [place] [address]- 6570 Mar, [facility] [place] [facility] [address] [facility] [id number], [place] [address]- 5515 Mar, [facility] [place] [facility] [address] [id number] [place] [address]- 4245 Mar, [facility] [place] [facility] [address] [id number] [place] 0153 Jan, [facility] [place] [facility] [address] [id number] [place] 2998 Jan, [facility] [place] [facility] [address] [id number] [place] 2739 Jan, [facility] [place] [facility] [address] [id number] [place] [address]- 5535 Jan, [facility] [place] [facility] [address] [id number] [place] [address]- 1004 Jan, [facility] [place] [facility] [address] [id number] [place] [address]- 2862 Jan, [facility] [place] [facility] [address] [id number] [place] [address]- 4590 Jan, [facility] [place] [facility] [address] [id number] [place] [address]- 3497 Jan, [facility] [place] [facility] [address] [id number] [place] [address]- 4731 Jan, [facility] [place] [facility] [address] [id number] [place] [address]- 4859 Jan, [facility] [place] [facility] [address] [id number] [place] [address]- 5223 Jan, [facility] [place] [facility] [address] [id number] [place] [address]- 4060 Jan, [facility] [place] [facility] [address] [id number] [place] [address]- 8190 Dec, [facility] [place] [facility] [address] [id number] [place] [address]- 7183 Dec, [facility] [place] [facility] [address] [id number] [place] [address]- 2538 Dec, [facility] [place] [facility] [address] [id number] [place] [address]- 3535 Dec, [facility] [place] [facility] [address] [id number] [place] [address]- 0473 Dec, [facility] [place] [facility] [address] [id number] [place] [address]- 1127 Dec, [facility] [place] [facility] [address] [id number] [place] [address]- 5152 Dec, [facility] [place] [facility] [address] [id number] [place] [address]- 5503 Dec, [facility] [place] [facility] [address] [id number] [place] [address]- 7935 Dec, [facility] [place] [facility] [address] [id number] [place] [address]- 6312 Dec, [facility] [place] [facility] [address] [id number], [place] [address]- 1211 Nov, [facility] [place] [facility] [address] [id number], [place] [address]- 8257 Nov, [facility] [place] [facility] [address] [id number], [place] [address]- 1403 Nov, [facility] [place] [facility] [address] [id number], [place] [address]- 0630 Nov, [facility] [place] [facility] [address] [id number], [place] [address]- 2093 Nov, [facility] [place] [facility] [address] [id number], [place] [address]- 4598 Nov, [facility] [place] [facility] [address] [id number], [place] [address]- 1574 Nov, [facility] [place] [facility] [address] [id number], [place] [address]- 6966 Nov, [facility] [place] [facility] [address] [id number] [place] [address]- 0118 24 Nov, 2013 [facility] [place] [facility] [address] [id number] [place] [address]- 8782 24 Nov, 2013 [facility] [place] [facility] [address] [id number] [place] [address]- 4329 17 Nov, 2013 [facility] [place] [facility] [address] [id number] [place] [address]- 8696 17 Nov, 2013 [facility] [place] [facility] [address] [id number] [place] [address]- 1685 14 Nov, 2013 [facility] [place] [facility] [address] [id number] [place] [address]- 5971 14 Nov, 2013 [facility] [place] [facility] [address] [id number] [place] [address]- 4268 10 Nov, 2013 [facility] [place] [facility] [address] [id number] [place] [address]- 1868 10 Nov, 2013 [facility] [place] [facility] [address] [id number] [place] [address]- 8091 08 Nov, 2013 [facility] [place] [facility] [address] [id number] [place] [address]- 1843 08 Nov, 2013 [facility] [place] [facility] [address] [id number] [place] [address]- 5107 Nov, [facility] [place] [facility] [address] [id number] [place] [address]- 8490 Nov, [facility] [place] [facility] [address] [id number] [place] [address]- 5990 26 Oct, 2013 [facility] [place] [facility] [address] [id number] [place] [address]- 6149 26 Oct, 2013 [facility] [place] [facility] [address] [id number] [place] [address]- 3664 19 Oct, 2013 [facility] [place] [facility] [address] [id number] [place] [address]- 1137 Oct, [facility] [place] [facility] [address] [id number] [place] [address]- 1335 Oct, [facility] [place] [facility] [address] [id number] [place] [address]- 5941 Oct, [facility] [place] [facility] [address] [id number] [place] [address]- 8607 Oct, [facility] [place] [facility] [address] [id number] [place] [address]- 1954 Oct, [facility] [place] [facility] [address] [id number] [place] [address]- 4949 Oct, [facility] [place] [facility] [address] [id number] [place] [address]- 7941 Oct, [facility] [place] [facility] [address] [id number] [place] [address]- 1317 Sep, [facility] [place] [facility] [address] [id number] [place] [address]- 6774 Sep, [facility] [place] [facility] [address] [id number] [place] [address]- 0272 Sep, [facility] [place] [facility] [address] [id number] [place] [address]- 6849 Sep, [facility] [place] [facility] [address] [id number] [place] [address]- 9103 Sep, [facility] [place] [facility] [address] [id number] [place] [address]- 4196 Sep, [facility] [place] [facility] [address] [id number] [place] [address]- 4575 Sep, [facility] [place] [facility] [address] [id number] [place] [address]- 5557 Sep, [facility] [place] [facility] [address] [id number] [place] [address]- 2325 Sep, [facility] [place] [facility] [address] [id number] [place] [address]- 6799 Sep, [facility] [place] [facility] [address] [id number] [place] [address]- 3668 Sep, [facility] [place] [facility] [address] [id number] [place] [address]- 7640 Sep, [facility] [place] [facility] [address] [id number] [place] [address]- 6396 Sep, [facility] [place] [facility] [address] [id number] [place] [address]- 9113 Sep, [facility] [place] [facility] [address] [id number] [place] [address]- 9805 Sep, [facility] [place] [facility] [address] [id number] [place] [address]- 2302 Sep, [facility] [place] [facility] [address] [id number] [place] [address]- 6271 Sep, [facility] [place] [facility] [address] [id number] [place] [address]- 4481 Sep, [facility] [place] [facility] [address] [id number] [place] [address]- 7576 Sep, [facility] [place] [facility] [address] [id number] [place] [address]- 1957 Sep, [facility] [place] [facility] [address] [id number] [place] [address]- 0730 Sep, [facility] [place] [facility] [address] [id number] [place] [address]- 0475 Sep, [facility] [place] [facility] [address] [id number] [place] [address]- 8490 Sep, [facility] [place] [facility] [address] [id number] [place] [address]- 1396 Sep, [facility] [place] [facility] [address] [id number] [place] [address]- 3446 Sep, [facility] [place] [facility] [address] [id number] [place] [address]- 3680 Aug, 2013 [facility] [place] [facility] [address] [id number] [place] [address]- 1566 Aug, [facility] [place] [facility] [address] [id number] [place] [address]- 7643 Aug, [facility] [place] [facility] [address] [id number] [place] [address]- 3278 Aug, [facility] [place] [facility] [address] [id number] [place] [address]- 0626 Aug, [facility] [place] [facility] [address] [id number] [place] [address]- 4544 Aug, [facility] [place] [facility] [address] [id number] [place] [address]- 8725 Aug, [facility] [place] [facility] [address] [id number] [place] [address]- 5185 Aug, [facility] [place] [facility] [address] [id number] [place] [address]- 6378 Aug, [facility] [place] [facility] [address] [id number] [place] [address]- 2289 Aug, [facility] [place] [facility] [address] [id number] [place] [address]- 0112 Aug, [facility] [place] [facility] [address] [id number] [place] [address]- 1524 Aug, [facility] [place] [facility] [address] [id number] [place] [address]- 1188 Aug, [facility] [place] [facility] [address] [id number] [place] [address]- 6975 Jul, [facility] [place] [facility] [address] [id number] [place] [address]- 1598 Jul, [facility] [place] [facility] [address] [id number] [id number] 7022 Jul, [facility] [place] [facility] [address] [id number] [place] [address]- 5742 Jul, [facility] [place] [facility] [address] [id number] [place] [address]- 6417 Jul, [facility] [place] [facility] [address] [id number] [place] [address]- 7194 Jul, [facility] [place] [facility] [address] [id number] [place] [address]- 4785 Jul, [facility] [place] [facility] [address] [id number] [place] [address]- 3803 June, [facility] [place] [facility] [address] [id number] [place] [address]- 6426 June, [facility] [place] [facility] [address] [id number] [place] [address]- 6408 June, [facility] [place] [facility] [address] [id number] [place] [address]- 0802 June, [facility] [place] [facility] [address] [id number] [place] [address]- 7521 May, [facility] [place] [facility] [address] [id number] [place] [address]- 4613 May, [facility] [place] [facility] [address] [id number] [place] [address]- 6212 May, [facility] [place] [facility] [address] [id number] [place] [address]- 8769 May, [facility] [place] [facility] [address] [id number] [place] [address]- 2584 May, [facility] [place] [facility] [address] [id number] [place] [address] May, [facility] [place] [facility] [address] [id number] [place] [address] May, [facility] [place] [facility] [address] [id number] [place] [address] May, [facility] [place] [facility] [address] [id number] [place] [address] May, [facility] [place] [facility] [address] [id number] [place] [address] May, [facility] [place] [facility] [address] [id number] [place] [address] Apr, [facility] [place] [facility] [address] [id number] [place] [address] Apr, [facility] [place] [facility] [address] [id number] [place] [address] Apr, [facility] [place] [facility] [address] [id number] [place] [address] 2000 Apr, [facility] [place] [facility] [address] [id number] [place] [address] Apr, [facility] [place] [facility] [address] [id number] [place] [address] Apr, [facility] [place] [facility] [address] [id number] [place] [address] Apr, [facility] [place] [facility] [address] [facility] [id number] [place] [address] Apr, [facility] [place] [facility] [address] [facility] [id number] [place] [address] 74[address] Apr, [facility] [place] [facility] [address] [id number] [place] [address]- [address] Apr, [facility] [place] [facility] [address] [id number] [place] [address]- [address] Mar, [facility] [place] [facility] [address] [id number] [place] [address] Mar, [facility] [place] [facility] [address] [facility] [id number] [place] [address] Mar, [facility] [address] [id number] [place] [address] Mar, [facility] [place] [facility] [address] [id number] [place] [address] Mar, [facility] [place] [facility] [address] [id number] [place] [address]- [address] Mar, [facility] [place] [facility] [address] [id number] [place] [address]- [address] Jan, [facility] [place] [facility] [address] [id number] [place] [address] 1770 Jan, [facility] [place] [facility] [address] [id number] [place] [address] Jan, [facility] [place] [facility] [address] [id number] [place] [address] Jan, [facility] [place] [facility] [address] [id number], [place] [address] Jan, [facility] [place] [facility] [address] [id number] [place] [address] Jan, [facility] [place] [facility] [address] [id number], [place] [address] Jan, [facility] [place] [facility] [address] [id number], [place] [address] Jan, [facility] [place] [facility] [address] [id number], [place] [address] Jan, [facility] [place] [facility] [address] [id number] [place] [address]- [address]36 Dec, [facility] [place] [facility] [address] [id number], [place] [address] Dec, [facility] [place] [facility] [address] [id number], [place] [address] Dec, [facility] [place] [facility] [address] [id number], [place] [address] Dec, [facility] [place] [facility] [address] [id number] [place] [address] Dec, [facility] [place] [facility] [address] [facility] [id number], [place] [address] Dec, [facility] [place] [facility] [address] [facility] [id number] [place] [address] Dec, [facility] [place] [facility] [address] [id number], [place] [address] Dec, [facility] [place] [facility] [address] [facility] [id number] [place] [address] Dec, [facility] [place] [facility] [address] [facility] [id number], [place] [address] Dec, [facility] [place] [facility] [address] [id number], [place] [address] Dec, [facility] [place] [facility] [address] [facility] [id number], [place] [address] Nov, [facility] [place] [facility] [address] [facility] [id number], [place] [address] Nov, [facility] [place] [facility] [address] [facility] [id number], [place] [address] Nov, [facility] [place] [facility] [address] [facility] [id number], [place] [address] Nov, [facility] [place] [facility] [address] [facility] [id number], [place] [address]- [address] Nov, [facility] [place] [facility] [address] [facility] [id number], [place] [address] Oct, [facility] [place] [facility] [address] [facility] [id number], [place] [address] 9698 Oct, [facility] [place] [facility] [address] [facility] [id number], [place] [address]- [address] Sep, [facility] [place] [facility] [address] [id number] [place] [address]48 Aug, [facility] [place] [facility] [address] [id number] [place] [address]- 4524 Aug, [facility] [place] [facility] [address] [id number] [place] [address]- 8501 Aug, [facility] [place] [facility] [address] [id number] [place] [address]- 6103 Aug, [facility] [place] [facility] [address] [id number] [place] [address]- [address]296 Jul, [facility] [place] [facility] [address] [id number] [place] [address]- 0795 Jul, [facility] [place] [facility] [address] [id number] [place] [address]- 1029 June, [facility] [place] [facility] [address] [id number] [place] [address]- 5902 June, [facility] [place] [facility] [address] [id number] [place] [address]- 1239 June, [facility] [place] [facility] [address] [id number] [place] [address]- 3284 May, [facility] [place] [facility] [address] [id number] [place] [address]- 9916 May, [facility] [place] [facility] [address] [id number] [place] [address]- 2546 May, [facility] [place] [facility] [address] [id number] [place] [address]- [address] 18 Apr, 2012 [facility] [place] [facility] [address] [id number] [place] [address]- 2546 18 Apr, 2012 [facility] [place] [facility] [address] [id number] [place] [address]- 2546 15 Apr, 2012 [facility] [place] [facility] [address] [id number] [place] [address]- 3618 14 Apr, 2012 [facility] [address] [id number] [place] [address]- 8700 Apr, [facility] [address] [id number] [place] [address] Apr, [facility] [address] [facility] [id number] [place] [address] Apr, [facility] [place] [facility] [address] [id number] [place] [address] Apr, [facility] [address] [id number] [place] [address] Apr, [facility] [address] [facility] [id number] [place] [address] Apr, [facility] [address] [id number] [address] Apr, [facility] [address] [facility] [id number] [place] [address] Apr, [facility] [address] [facility] [id number] [place] [address] 79[address] Apr, [facility] [address] [facility] [id number] [place] [address] Mar, [facility] [address] [facility] [id number] [place] [address] 24[address] Mar, [facility] [place] [facility] [address] [facility] [id number] [place] [address] 1723 Mar, [facility] [place] [facility] [address] [facility] [id number] [place] [address] 2525 Mar, [facility] [place] [facility] [address] [facility] [id number] [place] [address] 11[address] Mar, [facility] [place] [facility] [address] [facility] [id number] [place] [address] 38[address] Jan, [facility] [place] [facility] [address] [id number] [place] [address]76 28 Jan, 2012 [facility] [place] [facility] [address] [id number] [place] [address] 45[address] Jan, [facility] [place] [facility] [address] [id number] [place] [address] 0086 Jan, [facility] [place] [facility] [address] [id number] [place] [address] 14 Jan, 2012 [facility] [place] [facility] [address] [id number] [place] [address]- 9726 13 Jan, 2012 [facility] [place] [facility] [address] [id number] [place] [address] 1666 13 Jan, 2012 [facility] [place] [facility] [address] [id number] [place] [address] 9086 11 Jan, 2012 [facility] [place] [facility] [address] [id number] [place] [address] 5093 Jan, [facility] [place] [facility] [address] [id number] [place] [address] Jan, [facility] [place] [facility] [address] [id number] [place] [address] 9351 Jan, [facility] [place] [facility] [address] [id number] [place] [address] 0197 Jan, [facility] [place] [facility] [address] [id number] [place] [address] 4396 Jan, [facility] [place] [facility] [address] [id number] [place] [address] 1686 Jan, [facility] [place] [facility] [address] [id number] [place] [address] 4346 Dec, [facility] [place] [facility] [address] [id number] [place] [address] 3736 Dec, [facility] [place] [facility] [address] [id number] [place] [address] 7921 19 Jan, 2012 [facility] [place] [facility] [address] [id number] [place] [address] 1648 19 Jan, 2012 [facility] [place] [facility] [address] [id number] [place] [address]- 8795 15 Jan, 2012 [facility] [place] [facility] [address] [facility] [id number] [place] [address] 1698 15 Jan, 2012 [facility] [place] [facility] [address] [id number] [place] [address] 5741 14 Jan, 2012 [facility] [place] [facility] [address] [id number] [place] [address]- [address]86 14 Jan, 2012 [facility] [place] [facility] [address] [id number] [place] [address] 14 Jan, 2012 [facility] [place] [facility] [address] [id number] [place] [address]- 1206 14 Jan, 2012 [facility] [place] [facility] [address] [id number], [place] [address] 07 Jan, 2012 [facility] [place] [facility] [address] [id number] [place] [address]- 3723 07 Jan, 2012 [facility] [place] [facility] [address] [facility] [id number], [place] [address]86 16 Dec, 2011 [facility] [place] [facility] [address] [id number], [place] [address] 16 Dec, 2011 [facility] [place] [facility] [address] [id number], [place] [address] 13 Nov, 2011 [facility] [place] [facility] [address] [id number], [place] [address]208 13 Nov, 2011 [facility] [place] [facility] [address] [id number], [place] [address] 2096 13 Nov, 2011 [facility] [place] [facility] [address] [id number], [place] [address]- 9717 12 Nov, 2011 [facility] [place] [facility] [address] [id number] [place] [address] 2546 Sep, [facility] [address] [id number] [place] [address]- 9486 Sep, [facility] [place] [facility] [address] [id number] [place] [address]- 9566 Aug, [facility] [address] [id number] [place] [address]- 2846 Aug, [facility] [place] [facility] [address] [id number] [place] [address] 9930 Aug, [facility] [address] [id number] [place] [address]- 2575 Aug, [facility] [place] [facility] [address] [id number] [place] [address]- 2546 June, [facility] [address] [id number] [place] [address] 2546 June, [facility] [address] [id number] [place] [address] 6721 May, [facility] [place] [facility] [address] [id number] [place] [address] 8127 Apr, [facility] [address] [id number] [place] [address]- 2746 Apr, [facility] [place] [facility] [address] [id number] [place] [address]- 2546 Apr, [facility] [place] [facility] [address] [id number] [place] [address]- 2546 Apr, [facility] [place] [facility] [address] [id number] [place] [address]- 6216 Apr, [facility] [place] [facility] [address] [id number] [place] [address]- 2546 Apr, [facility] [place] [facility] [address] [id number] [place] [address]- 2540 Mar, [facility] [place] [facility] [address] [id number] [place] [address]- 2009 Mar, [facility] [place] [facility] [address] [id number] [place] [address]- 8553 Mar, [facility] [place] [facility] [address] [id number] [place] [address]- 3553 Jan, [facility] [place] [facility] [address] [id number] [place] [address]- 6509 Jan, [facility] [place] [facility] [address] [id number] [place] [address] Jan, [facility] [place] [facility] [address] [id number] [place] [address]- 5794 Jan, [facility] [place] [facility] [address] [id number] [place] [address]- 1434 Jan, [facility] [place] [facility] [address] [id number] [place] [address]- 9161 Jan, [facility] [place] [facility] [address] [id number] [place] [address]- 8250 Jan, [facility] [place] [facility] [address] [id number] [place] [address]- 9203 Dec, [facility] [place] [facility] [address] [id number] [place] [address]- 7634 Dec, [facility] [place] [facility] [address] [id number], [place] [address] 58[address] Nov, [facility] [place] [facility] [address] [id number] [place] [address]- 7605 Nov, [facility] [place] [facility] [address] [id number] [place] [address]- 3177 Nov, [facility] [place] [facility] [address] [id number], [place] [address]- 3944 Nov, [facility] [place] [facility] [address] [id number], [place] [address]80 12 Oct, 2010 [facility] [place] [facility] [address] [id number] [place] [address]- 1271 Sep, [facility] [place] [facility] [address] [id number] [place] [address]- 5941 Mar, [facility] [place] [facility] [address] [id number] [place] [address]- 6954 Jan, [facility] [place] [facility] [address] [id number] [place] [address]- 0630 Dec, [facility] [place] [facility] [address] [id number] [place] [address]- 3833 Dec, [facility] [place] [facility] [address] [id number] [place] [address]- 1649 Dec, [facility] [place] [facility] [address] [id number] [place] [address]- 9218 Dec, [facility] [place] [facility] [address] [id number] [place] [address]- 9040 Nov, [facility] [place] [facility] [address] [id number] [place] [address]- 0401 15 Nov, 2009 [facility] [place] [facility] [address] [id number] [place] [address]- 0065 14 Nov, 2009 [facility] [place] [facility] [address] [id number], [place] [address]- 5031 14 Nov, 2009 [facility] [place] [facility] [address] [id number] [place] [address]- 8767 13 Oct, 2009 [facility] [place] [facility] [address] [id number] [place] [address]- 1695 Jul, [facility] [place] [facility] [address] [id number] [place] [address]- 4362 June, [facility] [place] [facility] [address] [id number] [place] [address]- 3854 June, [facility] [place] [facility] [id number], [place] [address] 79[address] 17 Apr, 2009 [facility] [address] Mar, [facility] [id number], [place] [address]878 Jan, [facility] [id number], [place] [address]- 5468 Jan, [facility] [id number], [place] [address]- 7965 Dec, [facility] [id number] [place] [address] 463218- [address]990 Dec, [facility] [id number] [place] [address]- 4918 Dec, [facility] [id number] [place] [address]- 6387 Dec, [facility] [id number], [place] [address]- [address] Nov, [facility] [id number], [place] [address]- 3748 Jul, [facility] [address], [place] [address] June, IMMUNIZATIONS No Known Immunizations SOCIAL HISTORY Never Assessed REASON FOR VISIT Cough x 3 weeks, worse at night.--ONEYDA Mcmullen PLAN OF CARE Activity Details Follow Up prn Reason: VITAL SIGNS Height 69 in 2017-12-28 Weight 338.8 lbs 2017-12-28 Temperature 98.9 degrees Fahrenheit 2017-12-28 Heart Rate 68 bpm 2017-12-28 Respiratory Rate 20 2017-12-28 BMI 50.03 kg/m2 2017-12-28 Blood pressure systolic 128 mmHg 2017-12-28 Blood pressure diastolic 76 mmHg 2017-12-28 MEDICATIONS Medication Instructions Dosage Frequency Start Date End Date Duration Status Docusate Sodium 100 MG Orally Once a day 1 capsule as needed 24h Active Viagra 25 MG Orally 0.5-4 hours before intercourse, up to once per day 1 tablet 10 Sep, 2016 Active Omeprazole 20 MG TAKE 1 CAPSULE BY MOUTH TWICE DAILY 90 Active Nystatin [id number] UNIT/GM Externally Twice a day 1 application to affected area 12h June, Active Fosamax 70 MG Orally once weekly 1 tablet Dec, 90 days Active Duloxetine HCl 60 MG Orally Once a day 1 capsule 24h 14 Dec, 2015 Active Multivitamin BID May, Active Metoprolol Tartrate 25 MG TAKE 1 TABLET BY MOUTH TWICE A DAY 30 Active Clonazepam 1 MG Orally Once a day as needed for anxiety 1 tablet June, 28 days Active Diclofenac Sodium 75 MG TAKE 1 TABLET WITH FOOD OR MILK TWICE DAILY 90 Active Flomax 0.4 MG 1 capsule 30 minutes after the same meal each day twice a day Orally 90 days 90 Active Allopurinol 100 MG TAKE 1 TABLET BY MOUTH DAILY 30 Active DiphenhydrAMINE HCl 50 MG Orally Once a day 1 capsule at bedtime as needed 24h Active Tizanidine HCl 4 MG TAKE 1 TABLET BY MOUTH THREE TIMES DAILY TO FOUR TIMES DAILY NEEDED 23 Active ProAir HFA 108 (90 Base) MCG/ACT Inhalation every 6 hrs 2 puffs as needed 6h Apr, Active Diclofenac Sodium 75 MG Orally 2 times a day 1 tablet with food or milk 12h 90 Active Fluticasone Propionate 50 MCG/ACT INSTILL 1 SPRAY INTO EACH NOSTRIL ONCE A DAY 60 Active Garlic 1,000 mg 3 Capsule 2 times per day Dec, Active Clobetasol Propionate 0.05 % Externally Twice a day 1 application to affected area 12h Sep, Active Endocet 10-325 MG Orally every 4-6 hours 1 tablet as needed Oct, 28 days Active RESULTS No Results PROCEDURES [...]
--- OUTSIDE RECORDS SUMMARY | 2018-02-26 19:50 | XMS REPORT ---
Author Author GRAHAM CHRIS [facility] Address [address] [place] [address] Care Team Providers Care Wireless Sales Manager Name Role Phone GRAHAMELLIOTT HANNAHANY Unavailable PROBLEMS Type Condition ICD9-CM Code TQX74-OG Code Onset Dates Condition Status SNOMED Code Problem Pulmonary asbestosis J61 Active 00931254 Problem Left ventricular diastolic dysfunction I51.9 Active 229657138 Problem Chronic gout, unspecified cause, unspecified site M1A.9XX0 Active 37636988 Problem Renal cyst, left N28.1 Active 30605119 Problem History of weight loss surgery Z98.84 Active 046883986 Problem Nocturnal hypoxia G47.34 Active 353799547 Problem Obstructive sleep apnea syndrome G47.33 Active 00917848 Problem History of diverticulitis Z87.19 Active 807234149052507 Problem Allergic rhinitis, unspecified allergic rhinitis type J30.9 Active 73488680 Problem Erectile dysfunction due to diseases classified elsewhere N52.1 Active 255382557 Problem Acute right-sided low back pain with right-sided sciatica M54.41 Active 513153782 Problem Psoriasis L40.9 Active 7351493 Problem Essential hypertension I10 Active 03730166 Problem Nephrolithiasis N20.0 Active 93426288 Problem Chronic prescription opiate use Z79.899 Active 492550850 Problem 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 Active 11471421 Problem Benign prostatic hyperplasia, presence of lower urinary tract symptoms unspecified, unspecified morphology N40.0 Active 088360147 Problem Moderate episode of recurrent major depressive disorder F33.1 Active 876263537 Problem Age-related osteoporosis without current pathological fracture M81.0 Active 23167694 Problem Low back pain M54.5 Active 372409641 Problem Anxiety F41.9 Active 24909039 Problem Urge incontinence N39.41 Active 055467819 Problem Hyperlipidemia, unspecified E78.5 Active 91317695 Problem Esophageal stricture K22.2 Active 47125157 Problem Cervicalgia M54.2 Active 4910276605940 Problem Primary insomnia F51.01 Active 066598293 ALLERGIES No Information ENCOUNTERS Encounter Location Date Diagnosis [facility] [address] 18061- 3924 Dec, [facility] [id number] [place] [address] 25292- 9005 Nov, [facility] [address] 19397- 2220 Nov, [facility] [address] 54271- 9717 Nov, Anxiety F41.9 [facility] [address] 57704- 5492 Oct, [facility] [address] 25845- 0814 Oct, [facility] [address] 70940- 7883 Oct, BMI 45.0-49.9, adult Z68.42 ; Essential hypertension I10 ; Hyperlipidemia, unspecified E78.5 ; Anxiety F41.9 ; Obstructive sleep apnea syndrome G47.33 ; Moderate episode of recurrent major depressive disorder F33.1 ; Left ventricular diastolic dysfunction I51.9 ; Acute pain of right shoulder M25.511 ; Pain of left foot M79.672 and Pain in right foot M79.671 [facility] [id number] [place] [address] 28461- 4021 Oct, Anxiety F41.9 [facility] [id number] [place] [address] 36284 -6273 Sep, Left foot pain M79.672 [facility] [id number] [place] [address] 69612- 1377 Sep, [facility] [id number] [place] [address] 16420- 1283 Sep, Anxiety F41.9 [facility] [address], [place] [address]- 0682 Sep, [facility] [id number] [place] [address] 93597- 5366 Aug, [facility] [id number] [place] [address] 75003- 0460 Aug, [facility] [address] 32736- 5562 Aug, Anxiety F41.9 [facility] [id number] [place] [address] 98092- 1478 Aug, [facility] [id number] [place] [address] 72271- 5954 Jul, [facility] [id number] [place] [address] 24580- 8277 Jul, Anxiety F41.9 [facility] [id number] [place] [address] 41414- 9146 June, Anxiety F41.9 [facility] [id number] [place] [address] 40788- 8146 June, [facility] [id number] [place] [address] 70264- 1042 June, Low back pain M54.5 ; Chronic prescription opiate use Z79.899 ; Candidal intertrigo B37.2 ; Urge incontinence N39.41 ; Essential hypertension I10 ; Moderate episode of recurrent major depressive disorder F33.1 ; Age-related osteoporosis without current pathological fracture M81.0 and BMI 45.0-49.9, adult Z68.42 [facility] [id number] [place] [address] 20498- 9611 June, [facility] [id number] [place] [address] 41864- 8799 May, Anxiety F41.9 [facility] [id number] [place] [address] 89043- 8921 May, [facility] [address], [place] [address]- 3496 May, [facility] [id number] [place] [address] 337230- 7582 Apr, Anxiety F41.9 [facility] [id number] [place] [address] 85839- 5996 Apr, [facility] [id number] [place] [address] 07384- 0371 Apr, Low back pain M54.5 [facility] [id number] [place] [address] 00074- 8592 Apr, [facility] [id number] [place] [address] 71699- 0130 Apr, [facility] [id number] [place] [address] 06707- 4287 Apr, Anxiety F41.9 [facility] [id number] [place] [address] 55140- 7670 Apr, Right groin pain R10.31 [facility] [address], [place] [address]- 7427 Mar, [facility] [id number] [place] [address] 88251- 6097 Mar, [facility] [id number] [place] [address] 65098- 0321 Mar, Anxiety F41.9 [facility] [id number] [place] [address] 77055- 8986 Mar, Low back pain M54.5 [facility] [address], [place] [address]- 5814 Mar, Right groin pain R10.31 ; Low back pain M54.5 and BMI 45.0- 49.9, adult Z68.42 [facility] [address] [place] [address] 99489- 2455 Mar, [facility] [id number] [place] [address] 04410- 9350 Mar, [facility] [id number] [place] [address] 00863- 3160 Mar, [facility] [id number] [place] [address] 63284 -9481 Mar, [facility] [id number] [place] [address] 66738 -1746 Mar, Cough R05 ; Pneumonia of right lower lobe due to infectious organism J18.1 and Abnormal chest x-ray R93.8 [facility] [id number] [place] [address] 22407- 6363 Mar, [facility] [id number] [place] [address] 68203- 6305 Mar, [facility] [id number] [place] [address] 96043- 5844 Jan, Anxiety F41.9 [facility] [id number] [place] [address] 98646- 1618 Jan, [facility] [id number] [place] [address] 07057- 4365 Jan, Moderate episode of recurrent major depressive disorder F33.1 [facility] [id number] [place] [address] 89246- 6963 Jan, Subacromial bursitis of right shoulder joint M75.51 ; Shortness of breath on exertion R06.02 and BMI 45.0-49.9, adult Z68.42 [facility] [id number] [place] [address] 89667- 8632 Dec, Anxiety F41.9 [facility] [id number] [place] [address] 22786- 8673 Dec, [facility] [id number] [place] [address] 74403- 4292 Dec, Low back pain M54.5 [facility] [id number] [place] [address] 75415- 3481 Oct, Low back pain M54.5 [facility] [id number] [place] [address] 06286- 3509 Sep, [facility] [id number] [place] [address] 17837- 9472 Sep, Erectile dysfunction due to diseases classified elsewhere N52.1 [facility] [address] 59903- 3271 Sep, Erectile dysfunction due to diseases classified elsewhere N52.1 [facility] [id number] [place] [address] 11416- 0618 Sep, [facility] [id number] [place] [address] 94388- 9442 Sep, Erectile dysfunction due to diseases classified elsewhere N52.1 [facility] [id number] [place] [address] 59603- 3060 Sep, Low back pain M54.5 and Anxiety F41.9 [facility] [id number] [place] [address] 39189 -7437 Aug, Acute allergic rhinitis J30.9 [facility] [id number] [place] [address] 58058- 7233 Aug, [facility] [id number] [place] [address] 70648- 7211 Aug, Anxiety F41.9 [facility] [id number] [place] [address] 74021- 4475 Jul, Low back pain M54.5 ; Chronic prescription opiate use Z79.899 and Essential hypertension I10 [facility] [id number] [place] [address] 41611- 8371 Jul, Anxiety F41.9 and Low back pain M54.5 [facility] [id number] [place] [address] 84802- 9170 June, [facility] [id number] [place] [address] 95683- 1826 June, Anxiety F41.9 [facility] [id number] [place] [address] 77424- 8776 May, Low back pain M54.5 [facility] [id number] [place] [address] 77920- 1919 May, [facility] [id number] [place] [address] 61001- 2309 May, Anxiety F41.9 [facility] [id number] [place] [address] 86465- 3898 Apr, [facility] [id number] [place] [address] 83661- 4160 Apr, Low back pain M54.5 [facility] [id number] [place] [address] 69532- 6395 Apr, Moderate episode of recurrent major depressive disorder F33.1 [facility] [id number] [place] [address] 65575- 8569 Apr, Anxiety F41.9 [facility] [id number] [place] [address] 54034- 6886 Apr, Low back pain M54.5 [facility] [id number] [place] [address] 55467- 9084 15 Apr, 2016 Elevated alkaline phosphatase level R74.8 [facility] [id number] [place] [address] 83161- 7916 10 Apr, 2016 Alkaline phosphatase elevation R74.8 [facility] [id number] [place] [address] 44129- 8863 06 Apr, 2016 Anxiety F41.9 [facility] [id number] [place] [address] 90159- 8846 03 Apr, 2016 Low back pain M54.5 [facility] [id number] [place] [address] 68713- 4101 03 Apr, 2016 History of weight loss surgery Z98.84 ; Encounter for hepatitis C screening test for low risk patient Z11.59 ; History of herpes genitalis Z86.19 ; Essential hypertension I10 ; Hyperlipidemia, unspecified E78.5 ; Exposure to STD Z20.2 and Benign prostatic hyperplasia, presence of lower urinary tract symptoms unspecified, unspecified morphology N40.0 [facility] [id number] [place] [address] 10192- 0376 02 Apr, 2016 [facility] [id number] [place] [address] 97059- 7249 Mar, [facility] [id number] [place] [address] 88738- 6579 Mar, [facility] [id number] [place] [address] 93482- 5830 Mar, [facility] [id number] [place] [address] 33397- 2762 Mar, Acute right-sided low back pain with right-sided sciatica M54.41 [facility] [id number] [place] [address] 14744- 8121 Mar, Low back pain M54.5 [facility] [id number] [place] [address] 15554 -9234 Mar, Muscle strain of chest wall, initial encounter S29.011A ; Muscle strain of right thigh, initial encounter S76.911A and Acute non- recurrent maxillary sinusitis J01.00 [facility] [id number] [place] [address] 84177- 7293 Mar, Benign prostatic hyperplasia, presence of lower urinary tract symptoms unspecified, unspecified morphology N40.0 [facility] [id number] [place] [address] 50940- 1347 Jan, Low back pain M54.5 [facility] [address] 98512- 7934 Jan, Low back pain M54.5 ; Essential hypertension I10 ; Hyperlipidemia, unspecified E78.5 ; Anxiety F41.9 ; Moderate episode of recurrent major depressive disorder F33.1 ; Primary insomnia F51.01 ; Exposure to STD Z20.2 ; Encounter for hepatitis C screening test for low risk patient Z11.59 and History of herpes genitalis Z86.19 [facility] [address] 59701- 8877 17 Jan, 2016 [facility] [address] 47516- 2481 Nov, [facility] [address] 56093- 9238 14 Dec, 2015 Anxiety F41.9 ; Cervicalgia M54.2 ; Moderate episode of recurrent major depressive disorder F33.1 and Encounter for immunization Z23 [facility] [address] 01393- 3010 Oct, [facility] [address] 10855- 4649 Oct, [facility] [address] 87349- 8648 16 Nov, 2015 [facility] [address] 88934- 1696 Oct, [facility] [address] 22652- 8384 Sep, [facility] [address] 92164- 9973 Aug, Low back pain M54.5 ; Anxiety F41.9 ; Primary insomnia F51.01 and Chronic prescription opiate use Z79.899 [facility] [address] [facility] [id number] [address]- 0688 Jul, [facility] [address] [facility] [id number], [place] [address]- 4014 Jul, [facility] [id number] [address]- 7605 Jul, [facility] [address] [facility] [id number] [place] [address] 61669- 9608 Jul, [facility] [address] [facility] [id number] [place] [address] 14578- 8517 Jul, [facility] [id number] [place] [address] 73174- 4656 June, [facility] [id number] [place] [address] 03215- 7825 June, [facility] [id number] [place] [address] 04406- 2403 June, [facility] [address], [place] [address]- 2128 June, [facility] [address], [place] [address]- 1445 May, Preoperative cardiovascular examination Z01.810 [facility] [address], [place] [address]- 7426 May, [facility] [address], [place] [address]- 7597 Apr, [facility] [address], [place] [address]- 1487 Apr, Osteoarthritis of right knee M17.9 [facility] [address], [place] [address]- 8475 30 May, 2015 [facility] [address], [place] [address]- 4609 16 May, 2015 [facility] [id number] [place] [address] 98682- 8446 11 May, 2015 [facility] [address] 51784- 6634 Apr, [facility] [id number] [place] [address] 38042- 7412 Apr, History of excessive cerumen Z78.9 ; Obstructive sleep apnea syndrome G47.33 ; History of diverticulitis Z87.19 and Nephrolithiasis N20.0 [facility] [id number] [place] [address] 23027- 9010 Apr, [facility] [id number] [place] [address] 21173 -6746 23 Apr, 2015 Abdominal pain R10.9 [facility] [id number] [place] [address] 22493- 3331 Apr, [facility] [id number] [place] [address] 48883- 4065 04 Apr, 2015 Osteoarthritis of right knee M17.9 [facility] [id number] [place] [address] 72654- 3448 Mar, [facility] [id number] [place] [address] 40502- 4107 Mar, [facility] [id number] [place] [address] 18907- 3820 14 Mar, 2015 [facility] [id number] [place] [address] 15115- 2532 13 Mar, 2015 [facility] [id number] [place] [address] 24628 -1092 Mar, Pyelonephritis N12 ; Left-sided thoracic back pain M54.6 ; Hematuria, unspecified R31.9 and Kidney stone N20.0 [facility] [id number] [place] [address] 65062- 9727 Mar, History of weight loss surgery Z98.84 [facility] [id number] [place] [address] 94766- 5485 Mar, 2016 History of weight loss surgery Z98.84 and Hyperlipidemia, unspecified E78.5 [facility] [id number] [place] [address] 22206- 2430 Mar, 2016 Low back pain M54.5 ; Chronic prescription opiate use Z79.899 ; Hyperlipidemia, unspecified E78.5 ; Spasm of back muscles M62.830 and History of weight loss surgery Z98.84 [facility] [id number] [place] [address] 66178- 5820 Jan, [facility] [id number] [place] [address] 06999- 5647 Jan, [facility] [id number] [place] [address] 92759- 4818 Jan, [facility] [id number] [place] [address] 14517- 6051 Dec, [facility] [address] 12459- 0917 Dec, [facility] [id number] [place] [address] 88167- 3622 Dec, [facility] [id number] [place] [address] 01299- 4576 Nov, [facility] [id number] [place] [address] 97283- 0057 Nov, Obstructive sleep apnea syndrome G47.33 and Pharyngoesophageal dysphagia R13.14 [facility] [id number] [place] [address] 95819- 4948 Nov, [facility] [id number] [place] [address] 59845- 4271 Nov, [facility] [address] [place] [address]- 3562 Nov, [facility] [id number] [place] [address] [id number] Oct, Dental examination V72.2 [facility] [id number] [place] [address] 32014- 3862 Oct, [facility] [address] 51686- 2407 Oct, [facility] [address] 92033- 0719 Oct, [facility] [address] 00569- 0048 Oct, [facility] [id number] [place] [address] 66889- 7926 Oct, BPH (benign prostatic hyperplasia) 600.00 and Urinary frequency 788.41 [facility] [id number] [place] [address] 42236- 6791 Oct, [facility] [id number] [place] [address] 64139- 9307 Oct, [facility] [id number] [place] [address] 33634- 8032 Oct, [facility] [id number] [place] [address] 15914- 3017 Sep, Cerumen impaction 380.4 ; Cerumen debris on tympanic membrane 380.4 ; Psoriasis 696.1 and MICKY (secretory otitis media) 381.4 [facility] [id number] [place] [address] [id number] Sep, Dental examination V72.2 [facility] [id number] [place] [address] 40938- 1931 Sep, Fatigue 780.79 ; Irritable bowel syndrome 564.1 ; Overweight 278.02 ; Poor sleep V69.4 ; Shaking spells 781.0 and Broken tooth 873.63 [facility] [id number] [place] [address]- 6977 Sep, [facility] [id number]- 5926 Sep, [facility] [id number] [place] [address]- 4867 Aug, [facility] [id number] [place] [address]- 2910 Jul, [facility] [id number] [place] [address]- 8916 Jul, [facility] [id number] [place] [address]- 1231 Jul, [facility] [id number] [place] [address]- 7826 Jul, [facility] [address] [address]- 8520 June, Arthritis of knee, right 716.96 [facility] [id number] [place] [address] June, [facility] [id number] [address] June, Elevated blood pressure reading without diagnosis of hypertension 796.2 [facility] [id number] [address] June, [facility] [id number] [address] June, [facility] [id number] [address] June, [facility] [id number] [place] [address] June, [facility] [id number] [address] May, [facility] [place] [facility] [address] [id number] [place] [address] May, [facility] [place] [facility] [address] [id number] [place] [address] 30 Apr, 2014 [facility] [place] [facility] [address] [id number] [place] [address] 30 Apr, 2014 [facility] [place] [facility] [address] [id number] [place] [address] Apr, [facility] [place] [facility] [address] [id number] [place] [address] Apr, [facility] [place] [facility] [address] [id number] [place] [address] Apr, [facility] [place] [facility] [address] [id number] [place] [address] Apr, [facility] [place] [facility] [address] [id number] [place] [address] Apr, [facility] [place] [facility] [address] [id number] [place] [address] Apr, [facility] [facility] [address] [id number] [place] [address] Apr, [facility] [place] [facility] [address] [id number] [place] [address] 9886 Apr, [facility] [place] [facility] [address] [id number], [place] [address] 264[address] Apr, [facility] [place] [facility] [address] [id number] [place] [address] 6246 Apr, [facility] [place] [facility] [address] [id number] [place] [address]- 5250 Apr, [facility] [place] [facility] [address] [id number] [place] [address]- 6318 Apr, [facility] [place] [facility] [address] [facility] [id number] [place] [address]- 7442 23 Apr, 2014 [facility] [address] [facility] [id number] [place] [address]- 7318 23 Apr, 2014 [facility] [place] [facility] [address] [id number] [place] [address]- 2542 20 Apr, 2014 [facility] [place] [facility] [address] [facility] [id number] [place] [address]- 1961 20 Apr, 2014 [facility] [facility] [address] [facility] [id number] [place] [address]- 9653 18 Apr, 2014 [facility] [facility] [address] [facility] [id number] [place] [address]- 1358 18 Apr, 2014 [facility] [facility] [address] [facility] [id number] [place] [address]- 7847 13 Apr, 2014 [facility] [address] [facility] [id number] [place] [address]- 6786 13 Apr, 2014 [facility] [address] [facility] [id number] [place] [address]- 9320 13 Apr, 2014 [facility] [place] [facility] [address] [id number] [place] [address] 6151 13 Apr, 2014 [facility] [address] [id number] [address] 12 Apr, 2014 [facility] [address] [facility] [id number], [place] [address]- 2548 12 Apr, 2014 [facility] [address] [facility] [id number] [place] [address]- 0611 06 Apr, 2014 [facility] [facility] [address] [facility] [id number] [place] [address]- 2167 06 Apr, 2014 [facility] [facility] [address] [facility] [id number], [place] [address]- 5021 05 Apr, 2014 [facility] [address] [facility] [id number], [place] [address]- 2844 Apr, [facility] [address] [id number] [place] [address]- 1962 Apr, [facility] [facility] [address] [id number] [place] [address]- 6652 Apr, [facility] [address] [id number] [place] [address]- 0426 Apr, [facility] [address] [id number] [place] [address]- 6868 Mar, [facility] [facility] [address] [id number] [place] [address]- 1171 Mar, [facility] [facility] [address] [id number] [place] [address]- 4106 Mar, [facility] [address] [id number] [place] [address]- 3141 Mar, [facility] [address] [id number] [place] [address]- 6472 Mar, [facility] [address] [id number] [place] [address]- 8782 Mar, [facility] [facility] [address] [facility] [id number] [place] [address]- 8191 Mar, [facility] [address] [id number] [place] [address]- 8949 Mar, [facility] [address] [id number] [place] [address]- 4600 Mar, [facility] [place] [facility] [address] [id number] [place] [address]- 8668 Mar, [facility] [address] [id number] [place] [address]- 6312 Jan, [facility] [address] [id number] [place] [address]- 2485 Jan, [facility] [address] [id number] [place] [address]- 5847 Jan, [facility] [address] [id number] [place] [address]- 2610 Jan, [facility] [address] [id number] [place] [address]- 7925 Jan, [facility] [address] [id number] [place] [address]- 7752 Jan, [facility] [address] [id number] [place] [address]- 2244 Jan, [facility] [address] [id number] [place] [address]- 3229 Jan, [facility] [address] [id number] [place] [address]- 7095 Jan, [facility] [address] [id number] [place] [address]- 8651 Jan, [facility] [address] [id number] [place] [address]- 6664 Jan, [facility] [address] [id number] [place] [address]- 9066 Jan, [facility] [address] [id number] [place] [address]- 9748 Dec, [facility] [address] [id number] [place] [address]- 7617 Dec, [facility] [address] [id number] [place] [address]- 3863 Dec, [facility] [address] [id number] [place] [address]- 3729 Dec, [facility] [address] [id number] [place] [address]- 0143 14 Dec, 2013 [facility] [address] [id number], [place] [address]- 8026 Dec, [facility] [address] [id number] [place] [address]- 1393 Dec, [facility] [address] [id number] [place] Dec, [facility] [address] [id number] [place] [address]- 3535 Dec, [facility] [address] [id number] [place] [address]- 5212 Dec, [facility] [address] [id number] [place] [address]- 6542 Nov, [facility] [address] [id number] [place] [address]- 9895 Nov, [facility] [address] [id number] [place] [address]- 1219 Nov, [facility] [address] [id number], [place] [address]- 4216 Nov, [facility] [address] [id number], [place] [address]- 3620 Nov, [facility] [address] [id number], [place] [address]- 2525 Nov, [facility] [address] [id number], [place] [address]- 5781 Nov, [facility] [address] [id number], [place] [address]- 2731 Nov, [facility] [address] [id number], [place] [address]- 7868 Nov, [facility] [address] [id number], [place] [address]- 1640 Nov, [facility] [address] [id number], [place] [address]- 9914 Nov, [facility] [address] [id number] [place] [address]- 4044 17 Nov, 2013 [facility] [address] [id number] [place] [address]- 1882 14 Nov, 2013 [facility] [address] [id number] [place] [address]- 4754 14 Nov, 2013 [facility] [address] [id number] [place] [address]- 4239 10 Nov, 2013 [facility] [address] [id number] [place] [address]- 5964 10 Nov, 2013 [facility] [address] [id number] [place] [address]- 4794 08 Nov, 2013 [facility] [address] [id number] [place] [address]- 0859 08 Nov, 2013 [facility] [address] [id number] [place] [address]- 3532 Nov, [facility] [address] [id number] [place] [address]- 9507 Nov, [facility] [address] [id number] [place] [address]- 1474 26 Oct, 2013 [facility] [address] [id number] [place] [address]- 4065 26 Oct, 2013 [facility] [address] [id number] [place] [address]- 254 19 Oct, 2013 [facility] [address] [id number] [place] [address]- 2541 19 Oct, 2013 [facility] [address] [id number] [place] [address]- 8973 12 Oct, 2013 [facility] [address] [id number] [place] [address]- 2543 12 Oct, 2013 [facility] [address] [id number] [place] [address]- 4094 Oct, [facility] [address] [id number] [place] [address]- 8983 Oct, [facility] [address] [id number] [place] [address]- 0771 Oct, [facility] [address] [id number] [place] [address]- 2327 Oct, [facility] [address] [id number] [place] [address]- 7483 Sep, [facility] [address] [id number] [place] [address]- 0065 Sep, [facility] [address] [id number] [place] [address]- 6801 Sep, [facility] [address] [id number] [place] [address]- 4394 Sep, [facility] [address] [id number] [place] [address]- 7227 Sep, [facility] [address] [id number] [place] [address]- 2059 Sep, [facility] [address] [id number] [place] [address]- 5510 Sep, [facility] [address] [id number] [place] [address]- 8217 Sep, [facility] [address] [id number] [place] [address]- 6063 Sep, [facility] [address] [id number] [place] [address]- 0564 Sep, [facility] [address] [id number] [place] [address]- 5263 Sep, [facility] [address] [id number] [place] [address]- 4040 Sep, [facility] [address] [id number] [place] [address]- 6916 Sep, [facility] [address] [id number] [place] [address]- 7177 Sep, [facility] [address] [id number] [place] [address]- 6130 Sep, [facility] [address] [id number] [place] [address]- 0110 Sep, [facility] [address] [id number] [place] [address]- 9844 Sep, [facility] [address] [id number] [place] [address]- 7757 Sep, [facility] [address] [id number] [place] [address]- 1520 Sep, [facility] [address] [id number] [place] [address]- 0161 Sep, [facility] [address] [id number] [place] [address]- 6712 Sep, [facility] [address] [id number] [place] [address]- 4226 Sep, [facility] [address] [id number] [place] [address]- 7394 Sep, [facility] [address] [id number] [place] [address]- 3900 Sep, [facility] [address] [id number] [place] [address]- 0270 Sep, [facility] [address] [id number] [place] [address]- 8810 Aug, [facility] [address] [id number] [place] [address]- 5737 Aug, [facility] [address] [id number] [place] [address]- 0330 Aug, [facility] [address] [id number] [place] [address]- 6889 Aug, 2013 [facility] [address] [id number] [place] [address]- 8846 Aug, [facility] [address] [id number] [place] [address]- 3526 Aug, [facility] [address] [id number] [place] [address]- 5095 Aug, 2013 [facility] [address] [id number] [place] [address]- 6894 Aug, [facility] [address] [id number] [place] [address]- 5818 Aug, [facility] [address] [id number] [place] [address]- 2229 Aug, [facility] [address] [id number] [place] [address]- 2534 Aug, [facility] [address] [id number] [place] [address]- 0337 Aug, [facility] [address] [id number] [place] [address]- 4473 Aug, [facility] [address] [id number] [place] [address]- 8575 Jul, [facility] [facility] [address] [id number] [place] [address]- 9532 Jul, [facility] [address] [id number] [place] [address]- 2500 Jul, [facility] [address] [id number] [place] [address]- 6510 Jul, [facility] [facility] [address] [id number] [place] [address]- 6296 Jul, [facility] [address] [id number] [place] [address]- 2667 Jul, [facility] [address] [id number] [place] [address]- 7920 Jul, [facility] [address] [id number] [place] [address]- 6564 June, [facility] [address] [id number] [place] [address]- 2661 June, [facility] [address] [id number] [place] [address]- 5096 June, [facility] [address] [id number] [place] [address]- 4035 June, [facility] [address] [id number] [place] [address]- 2792 May, [facility] [address] [id number] [place] [address]- 5841 May, [facility] [place] [address] [id number] [place] [address]- 0418 May, [facility] [place] [address] [id number] [place] [address]- 7515 May, [facility] [address] [id number] [place] [address]- 5799 May, [facility] [place] [facility] [address] [id number] [place] [address]- 4491 May, [facility] [place] [facility] [address] [id number], [place] [address]- 8396 May, [facility] [place] [facility] [address] [id number] [place] [address]- 6360 May, [facility] [place] [facility] [address] [id number] [place] [address]- 8167 May, [facility] [place] [facility] [address] [id number] [place] [address]- 6260 May, [facility] [place] [facility] [address] [id number] [place] [address]- 0663 Apr, [facility] [place] [facility] [address] [id number] [place] [address]- 1542 Apr, [facility] [place] [facility] [address] [id number] [place] [address]- 3876 Apr, [facility] [place] [facility] [address] [id number] [place] [address]- 5561 Apr, [facility] [place] [facility] [address] [id number] [place] [address]- 7517 Apr, [facility] [place] [facility] [address] [id number] [place] [address]- 9208 Apr, [facility] [place] [facility] [address] [id number] [place] [address]- 5416 Apr, [facility] [place] [facility] [address] [id number] [place] [address]- 7047 Apr, [facility] [place] [facility] [address] [id number] [place] [address]- 6907 Apr, [facility] [place] [facility] [address] [id number] [place] [address]- 8857 Apr, [facility] [place] [facility] [address] [facility] [id number] [place] [address]- 9303 Mar, [facility] [place] [facility] [address] [id number] [place] [address]- 8259 Mar, [facility] [place] [facility] [address] [id number] [place] [address]- 5086 Mar, [facility] [place] [facility] [address] [id number] [place] [address]- 2566 Mar, [facility] [place] [facility] [address] [id number] [place] [address]- 6846 Mar, [facility] [place] [facility] [address] [id number] [place] [address]- 7818 Mar, [facility] [address] [id number] [place] [address]- 1027 Jan, [facility] [place] [facility] [address] [id number] [place] [address]- 1486 Jan, [facility] [place] [facility] [address] [id number] [place] [address]- 1457 Jan, [facility] [place] [facility] [address] [id number] [place] [address]- 7272 Jan, [facility] [address] [id number] [place] [address]- 3471 Jan, [facility] [place] [facility] [address] [id number] [place] [address]- 5029 Jan, [facility] [place] [facility] [address] [id number] [place] [address]- 5005 Jan, [facility] [place] [facility] [address] [id number], [place] [address]- 9826 Jan, [facility] [place] [facility] [address] [id number] [place] [address]- 8788 Jan, [facility] [place] [facility] [address] [id number], [place] [address]- 0114 Dec, [facility] [place] [facility] [address] [id number], [place] [address]- 1001 Dec, [facility] [place] [facility] [address] [id number], [place] [address]- 2830 Dec, [facility] [place] [facility] [address] [id number] [place] [address]- 7832 Dec, [facility] [place] [facility] [address] [id number], [place] [address]- 5573 Dec, [facility] [place] [facility] [address] [id number], [place] [address]- 1482 Dec, [facility] [place] [facility] [address] [id number] [place] [address]- 4118 15 Dec, 2012 [facility] [place] [facility] [address] [id number] [place] [address]- 0951 Dec, [facility] [place] [facility] [address] [id number] [place] [address]- 7748 Dec, [facility] [place] [facility] [address] [id number] [place] [address]- 2656 Dec, [facility] [place] [facility] [address] [id number] [place] [address]- 4563 Dec, [facility] [place] [facility] [address] [id number] [place] [address]- 7140 Nov, [facility] [place] [facility] [address] [id number] [place] [address]- 9993 Nov, [facility] [place] [facility] [address] [id number] [place] [address]- 2726 Nov, [facility] [place] [facility] [address] [id number] [place] [address]- 0634 Nov, [facility] [place] [facility] [address] [id number] [place] [address] Nov, [facility] [place] [facility] [address] [id number] [place] [address] Oct, [facility] [place] [facility] [address] [id number] [place] [address] Oct, [facility] [place] [facility] [address] [id number] [place] [address] Sep, [facility] [place] [facility] [address] [id number] [place] [address] Aug, [facility] [place] [facility] [address] [id number] [place] [address] Aug, [facility] [place] [facility] [address] [id number] [place] [address] Aug, [facility] [place] [facility] [address] [id number] [place] [address] Aug, [facility] [address] [id number] [place] [address] Jul, [facility] [address] [id number] [place] [address] Jul, [facility] [address] [id number] [place] [address] June, [facility] [address] [id number] [place] [address] June, [facility] [address] [id number] [place] [address] June[facility] [address] [id number] [place] [address] May, [facility] [address] [id number] [place] [address] May, [facility] [address] [id number] [place] [address] May, [facility] [address] [id number] [place] [address] Apr, [facility] [address] [id number] [place] [address] 18 Apr, 2012 [facility] [address] [id number] [place] [address] 15 Apr, 2012 [facility] [place] [facility] [address] [id number] [place] [address] 14 Apr, 2012 [facility] [place] [facility] [address] [id number] [place] [address] Apr, [facility] [place] [facility] [address] [id number] [place] [address] Apr, [facility] [place] [facility] [address] [id number] [place] [address] Apr, [facility] [address] [id number] [place] [address] Apr, [facility] [address] [id number] [place] [address] Apr, [facility] [address] [id number] [place] [address] Apr, [facility] [address] [id number] [place] [address] Apr, [facility] [address] [id number] [place] [address] Apr, [facility] [address] [id number] [place] [address] Apr, [facility] [address] [id number] [place] [address] Mar, [facility] [address] [id number] [place] [address] Mar, [facility] [address] [id number] [place] [address] Mar, [facility] [address] [facility] [id number] [place] [address] Mar, [facility] [address] [id number] [place] [address] Mar, [facility] [address] [id number] [place] [address] 25[address] Jan, [facility] [address] [id number] [place] [address] Jan, [facility] [address] [id number] [place] [address] Jan, [facility] [address] [id number] [place] [address] Jan, [facility] [place] [facility] [address] [id number] [place] [address]30 14 Jan, 2012 [facility] [place] [facility] [address] [id number] [place] [address] 13 Jan, 2012 [facility] [place] [facility] [address] [id number] [place] [address]- [address]76 13 Jan, 2012 [facility] [place] [facility] [address] [id number] [place] [address]- [address] 11 Jan, 2012 [facility] [place] [facility] [address] [id number] [place] [address] Jan, [facility] [place] [facility] [address] [id number] [place] [address]- [address] Jan, [facility] [place] [facility] [address] [id number] [place] [address] Jan, [facility] [place] [facility] [address] [id number] [place] [address]697 Jan, [facility] [place] [facility] [address] [id number] [place] [address] 1787 Jan, [facility] [place] [facility] [address] [id number] [place] [address] Jan, [facility] [place] [facility] [address] [id number] [place] [address]- [address] Dec, [facility] [place] [facility] [address] [id number] [place] [address] Dec, [facility] [place] [facility] [address] [id number] [place] [address] Dec, [facility] [place] [facility] [address] [id number] [place] [address] Dec, [facility] [place] [facility] [address] [id number] [place] [address] 15 Jan, 2012 [facility] [place] [facility] [address] [id number] [place] [address]- 7926 15 Jan, 2012 [facility] [place] [facility] [address] [id number] [place] [address]- [address] 14 Jan, 2012 [facility] [place] [facility] [address] [id number] [place] [address]- [address]689 14 Jan, 2012 [facility] [place] [facility] [address] [id number] [place] [address]- [address] 14 Jan, 2012 [facility] [place] [facility] [address] [id number] [place] [address]- [address]377 14 Jan, 2012 [facility] [place] [facility] [address] [id number] [place] [address]- [address] 07 Jan, 2012 [facility] [place] [facility] [address] [id number] [place] [address]- [address] 07 Jan, 2012 [facility] [place] [facility] [address] [id number] [place] [address]- [address] 16 Dec, 2011 [facility] [place] [facility] [address] [id number] [place] [address]- 135[address] 16 Dec, 2011 [facility] [place] [facility] [address] [id number] [place] [address]- 2066 13 Nov, 2011 [facility] [place] [facility] [address] [id number] [place] [address]- [address] 13 Nov, 2011 [facility] [facility] [address] [id number], [place] [address] 13 Nov, 2011 [facility] [address] [id number], [place] [address] 12 Nov, 2011 [facility] [place] [facility] [address] [id number] [place] [address] Sep, [facility] [place] [facility] [address] [id number] [place] [address] Sep, [facility] [place] [facility] [address] [id number] [place] [address] Aug, [facility] [place] [facility] [address] [id number] [place] [address] Aug, [facility] [address] [id number] [place] [address] Aug, [facility] [address] [id number] [place] [address] Aug, [facility] [address] [id number] [place] [address] June, [facility] [address] [id number] [place] [address] June, [facility] [address] [id number] [place] [address] May, [facility] [address] [id number] [place] [address] Apr, [facility] [address] [id number] [place] [address] Apr, [facility] [address] [id number] [place] [address] Apr, [facility] [address] [id number] [place] [address] Apr, [facility] [address] [id number] [place] [address] Apr, [facility] [address] [id number] [place] [address] Apr, [facility] [address] [id number] [place] [address] Mar, [facility] [address] [id number] [place] [address] Mar, [facility] [address] [id number] [place] [address] Mar, [facility] [address] [id number] [place] [address] Jan, [facility] [place] [facility] [address] [id number] [place] [address]45 Jan, [facility] [place] [facility] [address] [id number] [place] [address] Jan, [facility] [facility] [address] [id number] [place] [address] Jan, [facility] [place] [address] [id number] [place] [address] Jan, [facility] [place] [facility] [address] [id number] [place] [address] Jan, [facility] [place] [address] [id number] [place] [address] Jan, [facility] [address] [id number] [place] [address] Dec, [facility] [place] [facility] [address] [id number] [place] [address] Dec, [facility] [facility] [address] [id number] [place] [address] Nov, [facility] [address] [id number], [place] [address] Nov, [facility] [address] [id number], [place] [address] Nov, [facility] [address] [id number], [place] [address] Nov, [facility] [address] [id number], [place] [address] Oct, [facility] [address] [id number], [place] [address] Sep, [facility] [address] [id number], [place] [address] Mar, [facility] [address] [id number], [place] [address] Jan, [facility] [address] [id number] [place] [address]- [address] Dec, [facility] [address] [id number], [place] [address] Dec, [facility] [address] [facility] [id number] [place] [address]- [address] Dec, [facility] [address] [id number] [place] [address] Dec, [facility] [address] [facility] [id number] [place] [address], [place] 26 Nov, 2009 [facility] [address] [id number] [place] [address] 15 Nov, 2009 [facility] [address] [facility] [id number], [place] [address]- [address] 14 Nov, 2009 [facility] [address] [facility] [id number], [place] [address] 14 Nov, 2009 [facility] [address] [id number], [place] [address] Oct, [facility] [address] [facility] [id number], [place] [address] Jul, [facility] [address] [id number], [place] [address] June, [facility] [address] [facility] [id number], [place] [address]- 132[address] June, [facility] [address] [facility] [id number], [place] [address] Apr, [facility] [address] [id number], [place] [address] Mar, [facility] [address] [facility] [id number], [place] [address] Jan, [facility] [address] [id number], [place] [address] Jan, [facility] [id number], [place] [address] Dec, [facility] [id number], [place] [address] Dec, [facility] [id number] [place] [address] Dec, [facility] [id number], [place] [address] Dec, [facility] [id number] [place] [address] Nov, [facility] [id number], [place] [address] Jul, [facility] [id number], [place] [address] June, IMMUNIZATIONS No Known Immunizations SOCIAL HISTORY Never Assessed REASON FOR VISIT pneumonia vaccine PLAN OF CARE VITAL SIGNS MEDICATIONS Unknown Medications RESULTS No Results PROCEDURES No Known procedures INSTRUCTIONS MEDICATIONS ADMINISTERED No Known Medications MEDICAL (GENERAL) HISTORY Type Description Date Medical History hypertension Medical History sleep apnea-did not tolerate CPAP Medical History oxygen dependent at [facility] Medical History colonic polyps Medical History [...]
--- OUTSIDE RECORDS SUMMARY | 2018-02-26 19:51 | XMS REPORT ---
Author Author [facility] Address [address] [place] [address] Care Team Providers Care Production Proofreader Name Role Phone GRAHAMELLIOTT HANNAHANY Unavailable PROBLEMS Type Condition ICD9-CM Code AIE15-AV Code Onset Dates Condition Status SNOMED Code Problem Pulmonary asbestosis J61 Active 11840223 Problem Left ventricular diastolic dysfunction I51.9 Active 791230614 Problem Chronic gout, unspecified cause, unspecified site [id number].[id number] Active 87279204 Problem Renal cyst, left N28.1 Active 02951462 Problem History of weight loss surgery Z98.84 Active 236393589 Problem Nocturnal hypoxia G47.34 Active 877969209 Problem Obstructive sleep apnea syndrome G47.33 Active 86500301 Problem History of diverticulitis Z87.19 Active [id number] Problem Allergic rhinitis, unspecified allergic rhinitis type J30.9 Active 20569007 Problem Erectile dysfunction due to diseases classified elsewhere N52.1 Active 404943033 Problem Acute right-sided low back pain with right-sided sciatica M54.41 Active 547422179 Problem Psoriasis L40.9 Active 6828079 Problem Essential hypertension I10 Active 10594378 Problem Nephrolithiasis N20.0 Active 10332003 Problem Chronic prescription opiate use Z79.899 Active 424536573 Problem 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 Active 02725169 Problem Benign prostatic hyperplasia, presence of lower urinary tract symptoms unspecified, unspecified morphology N40.0 Active 169836425 Problem Moderate episode of recurrent major depressive disorder F33.1 Active 652980036 Problem Age-related osteoporosis without current pathological fracture M81.0 Active 43237413 Problem Low back pain M54.5 Active 857346927 Problem Anxiety F41.9 Active 95038498 Problem Urge incontinence N39.41 Active 656346035 Problem Hyperlipidemia, unspecified E78.5 Active 05531170 Problem Esophageal stricture K22.2 Active 04864876 Problem Cervicalgia M54.2 Active 7644061088607 Problem Primary insomnia F51.01 Active 779099215 ALLERGIES No Information ENCOUNTERS Encounter Location Date Diagnosis [facility] [address] [address] Dec, [facility] [id number] [place] [address] 35424- 8169 Nov, [facility] [address] 67921- 2985 Nov, [facility] [address] 65541- 9121 Nov, Anxiety F41.9 [facility] [address] 18845- 7559 Oct, [facility] [address] 48606- 3832 Oct, [facility] [address] 06757- 7338 Oct, BMI 45.0-49.9, adult Z68.42 ; [facility] [...] [facility] [id number] [place] [address] 37696- 4019 Oct, Anxiety F41.9 [facility] [id number] [place] [address] 42902 -7318 Sep, Left foot pain M79.672 [facility] [id number] [place] [address] 16719- 7569 Sep, [facility] [id number] [place] [address] 72958- 3424 Sep, Anxiety F41.9 [facility] [address] [address] Sep, [facility] [id number] [place] [address] 67417- 6609 Aug, [facility] [id number] [place] [address] 49144- 3845 Aug, [facility] [address] 41533- 1180 Aug, Anxiety F41.9 [facility] [id number] [place] [address] 75939- 9327 Aug, [facility] [id number] [place] [address] 73498- 3796 Jul, [facility] [id number] [place] [address] 98620- 4278 Jul, Anxiety F41.9 [facility] [id number] [place] [address] 10681- 7558 June, Anxiety F41.9 [facility] [id number] [place] [address] 88397- 4859 June, [facility] [id number] [place] [address] 82525- 6492 June, Low back pain M54.5 ; Chronic prescription opiate use Z79.899 ; Candidal intertrigo B37.2 ; Urge incontinence N39.41 ; Essential hypertension I10 ; Moderate episode of recurrent major depressive disorder F33.1 ; Age-related osteoporosis without current pathological fracture M81.0 and BMI 45.0-49.9, adult Z68.42 [facility] [id number] [place] [address] 58689- 3062 June, [facility] [id number] [place] [address] 05258- 6374 May, Anxiety F41.9 [facility] [id number] [place] [address] 65614- 1586 May, [facility] [id number] [address]- 9835 May, [facility] [id number] [place] [address] 322475- 9207 Apr, Anxiety F41.9 [facility] [id number] [place] [address] 23822- 1616 Apr, [facility] [id number] [place] [address] 33335- 3180 Apr, Low back pain M54.5 [facility] [id number] [place] [address] 06258- 8328 Apr, [facility] [id number] [place] [address] 02149- 5745 Apr, [facility] [id number] [place] [address] 60798- 0984 Apr, Anxiety F41.9 [facility] [id number] [place] [address] 01100- 6204 Apr, Right groin pain R10.31 [facility] [address], [place] [address]- 0904 Mar, [facility] [id number] [place] [address] 43447- 7401 Mar, [facility] [id number] [place] [address] 05685- 7039 Mar, Anxiety F41.9 [facility] [id number] [place] [address] 39658- 1311 Mar, Low back pain M54.5 [facility] [address], [place] [address]- 6251 Mar, Right groin pain R10.31 ; Low back pain M54.5 and BMI 45.0- 49.9, adult Z68.42 [facility] [id number] [place] [address] 17131- 8470 Mar, [facility] [id number] [place] [address] 98062- 8771 Mar, [facility] [id number] [place] [address] 46878- 8360 Mar, [facility] [id number] [place] [address] 09705 -2284 Mar, [facility] [id number] [place] [address] 82178 -0784 Mar, Cough R05 ; Pneumonia of right lower lobe due to infectious organism J18.1 and Abnormal chest x-ray R93.8 [facility] [id number] [place] [address] 27296- 1531 Mar, [facility] [id number] [place] [address] 37316- 2485 Mar, [facility] [id number] [place] [address] 98292- 9738 Jan, Anxiety F41.9 [facility] [id number] [place] [address] 26896- 5033 Jan, [facility] [id number] [place] [address] 82126- 2578 Jan, Moderate episode of recurrent major depressive disorder F33.1 [facility] [id number] [place] [address] 66417- 1522 Jan, Subacromial bursitis of right shoulder joint M75.51 ; Shortness of breath on exertion R06.02 and BMI 45.0-49.9, adult Z68.42 [facility] [id number] [place] [address] 74050- 2089 Dec, Anxiety F41.9 [facility] [id number] [place] [address] 71268- 8668 Dec, [facility] [id number] [place] [address] 72701- 3527 Dec, Low back pain M54.5 [facility] [id number] [place] [address] 22310- 2492 Oct, Low back pain M54.5 [facility] [id number] [place] [address] 07234- 1098 Sep, [facility] [id number] [place] [address] 28997- 5062 Sep, Erectile dysfunction due to diseases classified elsewhere N52.1 [facility] [address] 64202- 7979 Sep, Erectile dysfunction due to diseases classified elsewhere N52.1 [facility] [id number] [place] [address] 87720- 7008 Sep, [facility] [id number] [place] [address] 95154- 6272 Sep, Erectile dysfunction due to diseases classified elsewhere N52.1 [facility] [id number] [place] [address] 84825- 6686 Sep, Low back pain M54.5 and Anxiety F41.9 [facility] [id number] [place] [address] 35794 -3294 Aug, Acute allergic rhinitis J30.9 [facility] [id number] [place] [address] 23528- 4406 Aug, [facility] [id number] [place] [address] 87242- 0217 Aug, Anxiety F41.9 [facility] [id number] [place] [address] 89970- 3894 Jul, Low back pain M54.5 ; Chronic prescription opiate use Z79.899 and Essential hypertension I10 [facility] [id number] [place] [address] 61198- 3723 Jul, Anxiety F41.9 and Low back pain M54.5 [facility] [id number] [place] [address] 89591- 2842 June, [facility] [id number] [place] [address] 21568- 3776 June, Anxiety F41.9 [facility] [id number] [place] [address] 14439- 8835 May, Low back pain M54.5 [facility] [id number] [place] [address] 49742- 4743 May, [facility] [id number] [place] [address] 49119- 5651 May, Anxiety F41.9 [facility] [id number] [place] [address] 14446- 4811 Apr, [facility] [id number] [place] [address] 22775- 9098 Apr, Low back pain M54.5 [facility] [id number] [place] [address] 15374- 1904 Apr, Moderate episode of recurrent major depressive disorder F33.1 [facility] [id number] [place] [address] 25887- 9945 Apr, Anxiety F41.9 [facility] [id number] [place] [address] 72481- 4993 Apr, Low back pain M54.5 [facility] [id number] [place] [address] 60626- 0026 15 Apr, 2016 Elevated alkaline phosphatase level R74.8 [facility] [id number] [place] [address] 35495- 8915 10 Apr, 2016 Alkaline phosphatase elevation R74.8 [facility] [id number] [place] [address] 88482- 0871 06 Apr, 2016 Anxiety F41.9 [facility] [id number] [place] [address] 55636- 3133 03 Apr, 2016 Low back pain M54.5 [facility] [id number] [place] [address] 20059- 5794 03 Apr, 2016 History of weight loss surgery Z98.84 ; Encounter for hepatitis C screening test for low risk patient Z11.59 ; History of herpes genitalis Z86.19 ; Essential hypertension I10 ; Hyperlipidemia, unspecified E78.5 ; Exposure to STD Z20.2 and Benign prostatic hyperplasia, presence of lower urinary tract symptoms unspecified, unspecified morphology N40.0 [facility] [id number] [place] [address] 28714- 8466 02 Apr, 2016 [facility] [id number] [place] [address] 10938- 7725 Mar, [facility] [id number] [place] [address] 90654- 5645 Mar, [facility] [id number] [place] [address] 11610- 3822 Mar, [facility] [id number] [place] [address] 52258- 8978 Mar, Acute right-sided low back pain with right-sided sciatica M54.41 [facility] [id number] [place] [address] 01921- 7594 Mar, Low back pain M54.5 [facility] [id number] [place] [address] 11877 -0892 Mar, Muscle strain of chest wall, initial encounter S29.011A ; Muscle strain of right thigh, initial encounter S76.911A and Acute non- recurrent maxillary sinusitis J01.00 [facility] [id number] [place] [address] 73292- 6184 Mar, Benign prostatic hyperplasia, presence of lower urinary tract symptoms unspecified, unspecified morphology N40.0 [facility] [id number] [place] [address] 71206- 3449 Jan, Low back pain M54.5 [facility] [address] 27244- 6426 Jan, Low back pain M54.5 ; Essential hypertension I10 ; Hyperlipidemia, unspecified E78.5 ; Anxiety F41.9 ; Moderate episode of recurrent major depressive disorder F33.1 ; Primary insomnia F51.01 ; Exposure to STD Z20.2 ; Encounter for hepatitis C screening test for low risk patient Z11.59 and History of herpes genitalis Z86.19 [facility] [address] 58134- 0373 17 Jan, 2016 [place] [facility] [address] 71821- 0724 Nov, [facility] [address] 86391- 3471 14 Dec, 2015 Anxiety F41.9 ; Cervicalgia M54.2 ; Moderate episode of recurrent major depressive disorder F33.1 and Encounter for immunization Z23 [facility] [facility] [address] 56485- 1248 Oct, [facility] [address] 17654- 8290 Oct, [facility] [address] 31940- 2062 16 Nov, 2015 [facility] [address] 87080- 8446 Oct, [facility] [address] 23480- 0525 Sep, [facility] [address] 40788- 2021 Aug, Low back pain M54.5 ; Anxiety F41.9 ; Primary insomnia F51.01 and Chronic prescription opiate use Z79.899 [facility] [address] [facility] [id number] [address]- 0762 Jul, [facility] [address] [facility] [id number] [address]- 9565 Jul, [facility] [id number] [address]- 9845 Jul, [facility] [address] [facility] [id number] [place] [address] 46971- 7220 Jul, [facility] [address] [facility] [id number] [place] [address] 17785- 0844 Jul, [facility] [id number] [place] [address] 41503- 6540 June, [facility] [id number] [place] [address] 75148- 0030 June, [facility] [id number] [place] [address] 46138- 6197 June, [facility] [address] [address]- 7876 June, [facility] [address] [address]- 5917 May, Preoperative cardiovascular examination Z01.810 [facility] [address], [place] [address]- 1237 May, [facility] [address], [place] [address]- 8973 Apr, [facility] [address] [address]- 8026 Apr, Osteoarthritis of right knee M17.9 [facility] [address], [place] [address]- 6514 30 May, 2015 [facility] [address] [address]- 7078 16 May, 2015 [facility] [id number] [place] [address] 63999- 3861 11 May, 2015 [facility] [address] 74288- 5314 Apr, [facility] [id number] [place] [address] 75261- 3982 Apr, History of excessive cerumen Z78.9 ; Obstructive sleep apnea syndrome G47.33 ; History of diverticulitis Z87.19 and Nephrolithiasis N20.0 [facility] [id number] [place] [address] 56865- 2406 Apr, [facility] [id number] [place] [address] 73346 -2906 23 Apr, 2015 Abdominal pain R10.9 [facility] [id number] [place] [address] 75719- 8845 Apr, [facility] [id number] [place] [address] 70379- 8710 04 Apr, 2015 Osteoarthritis of right knee M17.9 [facility] [id number] [place] [address] 49644- 4361 Mar, [facility] [id number] [place] [address] 14567- 1606 Mar, [facility] [id number] [place] [address] 44127- 6612 14 Mar, 2015 [facility] [id number] [place] [address] 00979- 6469 13 Mar, 2015 [facility] [id number] [place] [address] 10104 -4804 Mar, Pyelonephritis N12 ; Left-sided thoracic back pain M54.6 ; Hematuria, unspecified R31.9 and Kidney stone N20.0 [facility] [id number] [place] [address] 00693- 5290 Mar, History of weight loss surgery Z98.84 [facility] [id number] [place] [address] 92493- 5956 Mar, 2016 History of weight loss surgery Z98.84 and Hyperlipidemia, unspecified E78.5 [facility] [id number] [place] [address] 78042- 0073 Mar, 2016 Low back pain M54.5 ; Chronic prescription opiate use Z79.899 ; Hyperlipidemia, unspecified E78.5 ; Spasm of back muscles M62.830 and History of weight loss surgery Z98.84 [facility] [id number] [place] [address] 18610- 9304 Jan, [facility] [id number] [place] [address] 81748- 9673 Jan, [facility] [id number] [place] [address] [id number]- [phone] Jan, [facility] [id number] [place] [address] [phone]- [phone] Dec, [facility] [address] [phone]- [phone] Dec, [facility] [id number] [place] [address] [phone]- [phone] Dec, [facility] [id number] [place] [address] [phone]- [phone] Nov, [facility] [id number] [place] [address] [phone]- 3026 Nov, Obstructive sleep apnea syndrome G47.33 and Pharyngoesophageal dysphagia R13.14 [facility] [id number] [place] [address] [phone]- [phone] Nov, [facility] [id number] [place] [address] [phone]- [phone] Nov, [facility] [address] [place] [address] Nov, [facility] [id number] [place] [id number] Oct, Dental examination V72.2 [facility] [id number] [place] [address] [phone]- [phone] Oct, [facility] [address] [phone]- [phone] Oct, [facility] [address] 12565- [phone] Oct, [facility] [address] 39346- [phone] Oct, [facility] [id number] [place] [address] [phone]- [phone] Oct, BPH (benign prostatic hyperplasia) 600.00 and Urinary frequency 788.41 [facility] [id number] [place] [address]92- 8767 Oct, [facility] [id number] [place] [address] 22434- 7430 Oct, [facility] [id number] [place] [address]23- 4806 Oct, [facility] [id number] [place] [address] 51073- 2486 Sep, Cerumen impaction 380.4 ; Cerumen debris on tympanic membrane 380.4 ; Psoriasis 696.1 and MICKY (secretory otitis media) 381.4 [facility] [id number] [place] [address] [id number] Sep, Dental examination V72.2 [facility] [id number] [place] [address] 56927- 1182 Sep, Fatigue 780.79 ; Irritable bowel syndrome 564.1 ; Overweight 278.02 ; Poor sleep V69.4 ; Shaking spells 781.0 and Broken tooth 873.63 [facility] [address] [id number] [place] [address] 4797 Sep, [facility] [id number] 8[address] Sep, [facility] [address] [id number] [place] [address]- 9547 Aug, [facility] [id number] [place] [address]- 6112 Jul, [facility] [address] [id number] [place] [address]- 5458 Jul, [facility] [id number] [place] [address]- 9114 Jul, [facility] [id number] [place] [address]- 7922 Jul, [facility] [id number] [address] 5[address] June, Arthritis of knee, right 716.96 [facility] [address] [id number] [place] [address]- 8492 June, [facility] [id number] [address]- 9151 June, Elevated blood pressure reading without diagnosis of hypertension 796.2 [facility] [id number] [address]- 6131 June, [facility] [address] [id number] [address]- 3634 June, [facility] [address] [id number] 9327 June, [facility] [address] [id number] [place] [address]- 8926 June, [facility] [address] [id number] 7845 May, [facility] [place] [facility] [address] [id number] [place] [address]- 5475 May, [facility] [place] [facility] [address] [id number] [place] [address]- 1056 30 Apr, 2014 [facility] [place] [facility] [address] [id number] [place] [address]- 3297 30 Apr, 2014 [facility] [place] [facility] [address] [id number] [place] [address]- 4746 Apr, [facility] [place] [facility] [address] [id number] [place] [address]- 6837 Apr, [facility] [place] [facility] [address] [id number] [place] [address]- 5746 Apr, [facility] [place] [facility] [address] [id number] [place] [address]- 6129 Apr, [facility] [place] [facility] [address] [id number] [place] [address]- 8120 Apr, [facility] [place] [facility] [address] [id number] [place] [address]- 2583 Apr, [facility] [place] [facility] [address] [id number] [place] [address]- 0341 Apr, [facility] [place] [facility] [address] [id number] [place] [address]- 4652 Apr, [facility] [place] [facility] [address] [id number], [place] [address]- 2837 Apr, [facility] [place] [facility] [address] [id number] [place] [address]- 8397 Apr, [facility] [place] [facility] [address] [id number] [place] [address]- 1949 Apr, [facility] [place] [facility] [address] [id number] [place] [address]- 6869 Apr, [facility] [place] [facility] [address] [facility] [id number] [place] [address]- 5786 23 Apr, 2014 [facility] [place] [facility] [address] [facility] [id number] [place] [address]- 0020 23 Apr, 2014 [facility] [place] [facility] [address] [id number] [place] [address]- 2540 20 Apr, 2014 [facility] [place] [facility] [address] [facility] [id number] [place] [address]- 1634 20 Apr, 2014 [facility] [place] [facility] [address] [facility] [id number] [place] [address]- 5990 18 Apr, 2014 [facility] [place] [facility] [address] [facility] [id number] [place] [address]- 8052 18 Apr, 2014 [facility] [place] [facility] [address] [facility] [id number] [place] [address]- 3248 13 Apr, 2014 [facility] [place] [facility] [address] [facility] [id number] [place] [address]- 5865 13 Apr, 2014 [facility] [place] [facility] [address] [facility] [id number] [place] [address]- 1054 13 Apr, 2014 [facility] [place] [facility] [address] [id number] [address]- 0879 13 Apr, 2014 [facility] [place] [facility] [address] [id number] [address]- 4932 12 Apr, 2014 [facility] [place] [facility] [address] [facility] [id number] [address]- 2543 12 Apr, 2014 [facility] [place] [facility] [address] [facility] [id number] [place] [address]- 0318 06 Apr, 2014 [facility] [place] [facility] [address] [facility] [id number] [place] [address]- 2564 06 Apr, 2014 [facility] [place] [facility] [address] [facility] [id number], [place] [address]- 0687 05 Apr, 2014 [facility] [place] [facility] [address] [facility] [id number], [place] [address]- 0591 Apr, [facility] [place] [facility] [address] [id number] [place] [address]- 8518 Apr, [facility] [place] [facility] [address] [id number] [place] [address]- 3538 Apr, [facility] [place] [facility] [address] [id number] [place] [address]- 4076 Apr, [facility] [place] [facility] [address] [id number] [place] [address]- 4526 Mar, [facility] [place] [facility] [address] [id number] [place] [address]- 1692 Mar, [facility] [place] [facility] [address] [id number] [place] [address]- 7358 Mar, [facility] [place] [facility] [address] [id number] [place] [address]- 0971 Mar, [facility] [place] [facility] [address] [id number] [place] [address]- 8725 Mar, [facility] [place] [facility] [address] [id number] [place] [address]- 1654 Mar, [facility] [place] [facility] [address] [facility] [id number] [place] [address]- 7621 Mar, [facility] [place] [facility] [address] [id number] [place] [address]- 3061 Mar, [facility] [place] [facility] [address] [id number] [place] [address]- 8056 Mar, [facility] [place] [facility] [address] [id number] [place] [address]- 9625 Mar, [facility] [place] [facility] [address] [id number] [place] [address]- 2464 Jan, [facility] [place] [facility] [address] [id number] [place] [address]- 3291 Jan, [facility] [place] [facility] [address] [id number] [place] [address]- 8496 Jan, [facility] [place] [facility] [address] [id number] [place] [address]- 5003 Jan, [facility] [place] [facility] [address] [id number] [place] [address]- 0593 Jan, [facility] [place] [facility] [address] [id number] [place] [address]- 5576 Jan, [facility] [place] [facility] [address] [id number] [place] [address]- 6027 Jan, [facility] [place] [facility] [address] [id number] [place] [address]- 1182 Jan, [facility] [place] [facility] [address] [id number] [place] [address]- 2591 Jan, [facility] [place] [facility] [address] [id number] [place] [address]- 4366 Jan, [facility] [place] [facility] [address] [id number] [place] [address]- 7335 Jan, [facility] [place] [facility] [address] [id number] [place] [address]- 5884 Jan, [facility] [place] [facility] [address] [id number] [place] [address]- 0415 Dec, [facility] [place] [facility] [address] [id number] [place] [address]- 0541 Dec, [facility] [place] [facility] [address] [id number] [place] [address]- 9019 Dec, [facility] [place] [facility] [address] [id number] [place] [address]- 4732 Dec, [facility] [place] [facility] [address] [id number] [place] [address]- 7874 14 Dec, 2013 [facility] [place] [facility] [address] [id number], [place] [address]- 3789 Dec, [facility] [place] [facility] [address] [id number] [place] [address]- 9574 Dec, [facility] [place] [facility] [address] [id number] [place] [address]250 Dec, [facility] [place] [facility] [address] [id number] [place] [address]- 2233 Dec, [facility] [place] [facility] [address] [id number] [place] [address]- 1453 Dec, [facility] [place] [facility] [address] [id number] [place] [address]- 2809 Nov, [facility] [place] [facility] [address] [id number] [place] [address]- 5074 Nov, [facility] [place] [facility] [address] [id number] [place] [address]- 1739 Nov, [facility] [place] [facility] [address] [id number], [place] [address]- 2633 Nov, [facility] [place] [facility] [address] [id number], [place] [address]- 3066 Nov, [facility] [place] [facility] [address] [id number], [place] [address]- 6976 Nov, [facility] [place] [facility] [address] [id number], [place] [address]- 7683 Nov, [facility] [place] [facility] [address] [id number], [place] [address]- 4694 Nov, [facility] [place] [facility] [address] [id number], [place] [address]- 6201 Nov, [facility] [place] [facility] [address] [id number], [place] [address]- 8137 Nov, [facility] [place] [facility] [address] [id number], [place] [address]- 2199 Nov, [facility] [place] [facility] [address] [id number] [place] [address]- 5728 17 Nov, 2013 [facility] [place] [facility] [address] [id number] [place] [address]- 1854 14 Nov, 2013 [facility] [place] [facility] [address] [id number] [place] [address]- 7980 14 Nov, 2013 [facility] [place] [facility] [address] [id number] [place] [address]- 8127 10 Nov, 2013 [facility] [place] [facility] [address] [id number] [place] [address]- 6496 10 Nov, 2013 [facility] [place] [facility] [address] [id number] [place] [address]- 9252 08 Nov, 2013 [facility] [place] [facility] [address] [id number] [place] [address]- 3250 08 Nov, 2013 [facility] [place] [facility] [address] [id number] [place] [address]- 2136 Nov, [facility] [place] [facility] [address] [id number] [place] [address]- 4163 Nov, [facility] [place] [facility] [address] [id number] [place] [address]- 7821 26 Oct, 2013 [facility] [place] [facility] [address] [id number] [place] [address]- 0609 26 Oct, 2013 [facility] [place] [facility] [address] [id number] [place] [address]- 2545 19 Oct, 2013 [facility] [place] [facility] [address] [id number] [place] [address]- 2547 19 Oct, 2013 [facility] [place] [facility] [address] [id number] [place] [address]- 3112 12 Oct, 2013 [facility] [place] [facility] [address] [id number] [place] [address]- 2544 12 Oct, 2013 [facility] [place] [facility] [address] [id number] [place] [address]- 2441 Oct, [facility] [place] [facility] [address] [id number] [place] [address]- 8006 Oct, [facility] [place] [facility] [address] [id number] [place] [address]- 2460 Oct, [facility] [place] [facility] [address] [id number] [place] [address]- 9110 Oct, [facility] [place] [facility] [address] [id number] [place] [address]- 3015 Sep, [facility] [place] [facility] [address] [id number] [place] [address]- 4183 Sep, [facility] [place] [facility] [address] [id number] [place] [address]- 0734 Sep, [facility] [place] [facility] [address] [id number] [place] [address]- 5727 Sep, [facility] [place] [facility] [address] [id number] [place] [address]- 8721 Sep, [facility] [place] [facility] [address] [id number] [place] [address]- 3871 Sep, [facility] [place] [facility] [address] [id number] [place] [address]- 6934 Sep, [facility] [place] [facility] [address] [id number] [place] [address]- 7168 Sep, [facility] [place] [facility] [address] [id number] [place] [address]- 2377 Sep, [facility] [place] [facility] [address] [id number] [place] [address]- 7667 Sep, [facility] [place] [facility] [address] [id number] [place] [address]- 2325 Sep, [facility] [place] [facility] [address] [id number] [place] [address]- 6952 Sep, [facility] [place] [facility] [address] [id number] [place] [address]- 7719 Sep, [facility] [place] [facility] [address] [id number] [place] [address]- 0703 Sep, [facility] [place] [facility] [address] [id number] [place] [address]- 6272 Sep, [facility] [place] [facility] [address] [id number] [place] [address]- 1638 Sep, [facility] [place] [facility] [address] [id number] [place] [address]- 9068 Sep, [facility] [place] [facility] [address] [id number] [place] [address]- 7500 Sep, [facility] [place] [facility] [address] [id number] [place] [address]- 0941 Sep, [facility] [place] [facility] [address] [id number] [place] [address]- 5619 Sep, [facility] [place] [facility] [address] [id number] [place] [address]- 4423 Sep, [facility] [place] [facility] [address] [id number] [place] [address]- 4385 Sep, [facility] [place] [facility] [address] [id number] [place] [address]- 0480 Sep, [facility] [place] [facility] [address] [id number] [place] [address]- 9502 Sep, [facility] [place] [facility] [address] [id number] [place] [address]- 1994 Sep, [facility] [place] [facility] [address] [id number] [place] [address]- 8660 Aug, [facility] [place] [facility] [address] [id number] [place] [address]- 3909 Aug, [facility] [place] [facility] [address] [id number] [place] [address]- 9133 Aug, [facility] [place] [facility] [address] [id number] [place] [address]- 1669 Aug, 2013 [facility] [place] [facility] [address] [id number] [place] [address]- 3882 Aug, [facility] [place] [facility] [address] [id number] [place] [address]- 7166 Aug, [facility] [place] [facility] [address] [id number] [place] [address]- 6060 Aug, 2013 [facility] [place] [facility] [address] [id number] [place] [address]- 4861 Aug, [facility] [place] [facility] [address] [id number] [place] [address]- 3231 Aug, [facility] [place] [facility] [address] [id number] [place] [address]- 1287 Aug, [facility] [place] [facility] [address] [id number] [place] [address]- 7312 Aug, [facility] [place] [facility] [address] [id number] [place] [address]- 3196 Aug, [facility] [place] [facility] [address] [id number] [place] [address]- 1805 Aug, [facility] [place] [facility] [address] [id number] [place] [address]- 3399 Jul, [facility] [place] [facility] [address] [id number] [place] [address]- 6307 Jul, [facility] [place] [facility] [address] [id number] [place] [address]- 1929 Jul, [facility] [place] [facility] [address] [id number] [place] [address]- 6845 Jul, [facility] [place] [facility] [address] [id number] [place] [address]- 3845 Jul, [facility] [place] [facility] [address] [id number] [place] [address]- 9105 Jul, [facility] [place] [facility] [address] [id number] [place] [address]- 3688 Jul, [facility] [place] [facility] [address] [id number] [place] [address]- 7012 June, [facility] [place] [facility] [address] [id number] [place] [address]- 5058 June, [facility] [place] [facility] [address] [id number] [place] [address]- 7119 June, [facility] [place] [facility] [address] [id number] [place] [address]- 4149 June, [facility] [place] [facility] [address] [id number] [place] [address]- 5550 May, [facility] [place] [facility] [address] [id number] [place] [address]- 0451 May, [facility] [place] [facility] [address] [id number] [place] [address]- 7958 May, [facility] [place] [facility] [address] [id number] [place] [address]- 5704 May, [facility] [place] [facility] [address] [id number] [place] [address]- 1908 May, [facility] [place] [facility] [address] [id number] [place] [address]- 1722 May, [facility] [place] [facility] [address] [id number], [place] [address]- 6816 May, [facility] [place] [facility] [address] [id number] [place] [address]- 4510 May, [facility] [place] [facility] [address] [id number] [place] [address]- 1080 May, [facility] [place] [facility] [address] [id number] [place] [address]- 4436 May, [facility] [place] [facility] [address] [id number] [place] [address]- 8286 Apr, [facility] [place] [facility] [address] [id number] [place] [address]- 9031 Apr, [facility] [place] [facility] [address] [id number] [place] [address]- 8376 Apr, [facility] [place] [facility] [address] [id number] [place] [address]- 0037 Apr, [facility] [place] [facility] [address] [id number] [place] [address]- 4173 Apr, [facility] [place] [facility] [address] [id number] [place] [address]- 5645 Apr, [facility] [place] [facility] [address] [id number] [place] [address]- 4296 Apr, [facility] [place] [facility] [address] [id number] [place] [address]- 0833 Apr, [facility] [place] [facility] [address] [id number] [place] [address]- 3886 Apr, [facility] [place] [facility] [address] [id number] [place] [address] Apr, [facility] [place] [facility] [address] [facility] [id number] [place] [address] Mar, [facility] [place] [facility] [address] [id number] [place] [address] Mar, [facility] [place] [facility] [address] [id number] [place] [address] Mar, [facility] [place] [facility] [address] [id number] [place] [address] Mar, [facility] [place] [facility] [address] [id number] [place] [address] 70[address] Mar, [facility] [place] [facility] [address] [id number] [place] [address] Mar, [facility] [address] [id number] [place] [address] Jan, [facility] [place] [facility] [address] [id number] [place] [address] Jan, [facility] [place] [facility] [address] [id number] [place] [address] Jan, [facility] [place] [facility] [address] [id number] [place] [address] Jan, [facility] [address] [id number] [place] [address] 58[address] Jan, [facility] [place] [facility] [address] [id number] [place] [address] Jan, [facility] [place] [facility] [address] [id number] [place] [address]- 0[address] Jan, [facility] [place] [facility] [address] [id number], [place] [address] Jan, [facility] [place] [facility] [address] [id number] [place] [address]227 Jan, [facility] [place] [facility] [address] [id number], [place] [address] Dec, [facility] [place] [facility] [address] [id number], [place] [address] Dec, [facility] [place] [facility] [address] [id number], [place] [address] Dec, [facility] [place] [facility] [address] [id number] [place] [address] Dec, [facility] [place] [facility] [address] [id number], [place] [address] Dec, [facility] [place] [facility] [address] [id number], [place] [address] Dec, [facility] [place] [facility] [address] [id number] [place] [address]- [address] 15 Dec, 2012 [facility] [place] [facility] [address] [id number] [place] [address] Dec, [facility] [place] [facility] [address] [id number] [place] [address] Dec, [facility] [place] [facility] [address] [id number] [place] [address] 0987 Dec, [facility] [place] [facility] [address] [id number] [place] [address] 8025 Dec, [facility] [place] [facility] [address] [id number] [place] [address] Nov, [facility] [place] [facility] [address] [id number] [place] [address] Nov, [facility] [place] [facility] [address] [id number] [place] [address] 1986 Nov, [facility] [place] [facility] [address] [id number] [place] [address] Nov, [facility] [place] [facility] [address] [id number] [place] [address] 8893 Nov, [facility] [place] [facility] [address] [id number] [place] [address] 1597 Oct, [facility] [place] [facility] [address] [id number] [place] [address] 9477 Oct, [facility] [place] [facility] [address] [id number] [place] [address] 25[address] Sep, [facility] [place] [facility] [address] [id number] [place] [address] 39[address] Aug, [facility] [place] [facility] [address] [id number] [place] [address] Aug, [facility] [place] [facility] [address] [id number] [place] [address]39 Aug, [facility] [place] [facility] [address] [id number] [place] [address] Aug, [facility] [address] [id number] [place] [address] Jul, [facility] [address] [id number] [place] [address] Jul, [facility] [address] [id number] [place] [address]- 267[address] June, [facility] [address] [id number] [place] [address] 1684 June, [facility] [address] [id number] [place] [address] 6[address] June, [facility] [address] [id number] [place] [address] May, [facility] [address] [id number] [place] [address] May, [facility] [address] [id number] [place] [address] May, [facility] [address] [id number] [place] [address] Apr, [facility] [address] [id number] [place] [address] 18 Apr, 2012 [facility] [address] [id number] [place] [address]- [address] 15 Apr, 2012 [facility] [place] [facility] [address] [id number] [place] [address]- [address] 14 Apr, 2012 [facility] [place] [facility] [address] [id number] [place] [address]- 2036 Apr, [facility] [place] [facility] [address] [id number] [place] [address] 38[address] Apr, [facility] [place] [facility] [address] [id number] [place] [address]- 8[address] Apr, [facility] [address] [id number] [place] [address]186 Apr, [facility] [address] [id number] [place] [address] 68[address] Apr, [facility] [address] [id number] [place] [address] 1076 Apr, [facility] [address] [id number] [place] [address] 0156 Apr, [facility] [address] [id number] [place] [address]- 9796 Apr, [facility] [address] [id number] [place] [address]- [address]886 Apr, [facility] [address] [id number] [place] [address]- [address]677 Mar, [facility] [address] [id number] [place] [address]- 3466 Mar, [facility] [address] [id number] [place] [address]- [address]118 Mar, [facility] [facility] [address] [facility] [id number] [place] [address] Mar, [facility] [address] [id number] [place] [address] Mar, [facility] [address] [id number] [place] [address] 2544 Jan, [facility] [address] [id number] [place] [address] Jan, [facility] [address] [id number] [place] [address] Jan, [facility] [address] [id number] [place] [address] 8869 Jan, [facility] [place] [facility] [address] [id number] [place] [address]36 14 Jan, 2012 [facility] [place] [facility] [address] [id number] [place] [address] 13 Jan, 2012 [facility] [place] [facility] [address] [id number] [place] [address]756 13 Jan, 2012 [facility] [place] [facility] [address] [id number] [place] [address] 2926 11 Jan, 2012 [facility] [place] [facility] [address] [id number] [place] [address] Jan, [facility] [place] [facility] [address] [id number] [place] [address] Jan, [facility] [place] [facility] [address] [id number] [place] [address]- 67[address] Jan, [facility] [place] [facility] [address] [id number] [place] [address]227 Jan, [facility] [place] [facility] [address] [id number] [place] [address] 5960 Jan, [facility] [place] [facility] [address] [id number] [place] [address] 47[address] Jan, [facility] [place] [facility] [address] [id number] [place] [address] 7968 Dec, [facility] [place] [facility] [address] [id number] [place] [address]- [address]246 Dec, [facility] [place] [facility] [address] [id number] [place] [address] 3846 Dec, [facility] [place] [facility] [address] [id number] [place] [address]- 2016 Dec, [facility] [place] [facility] [address] [id number] [place] [address] 15 Jan, 2012 [facility] [place] [facility] [address] [id number] [place] [address]- [address]77 15 Jan, 2012 [facility] [place] [facility] [address] [id number] [place] [address]- 8188 14 Jan, 2012 [facility] [place] [facility] [address] [id number] [place] [address]- 6252 14 Jan, 2012 [facility] [place] [facility] [address] [id number] [place] [address]- 7038 14 Jan, 2012 [facility] [place] [facility] [address] [id number] [place] [address]- 7966 14 Jan, 2012 [facility] [place] [facility] [address] [id number] [place] [address]- [address]384 07 Jan, 2012 [facility] [place] [facility] [address] [id number] [place] [address]- 1497 07 Jan, 2012 [facility] [place] [facility] [address] [id number] [place] [address]- [address]771 16 Dec, 2011 [facility] [place] [facility] [address] [id number] [place] [address] 8468 16 Dec, 2011 [facility] [place] [facility] [address] [id number] [place] [address]- 8279 13 Nov, 2011 [facility] [place] [facility] [address] [id number] [place] [address]- 7754 13 Nov, 2011 [facility] [place] [facility] [address] [id number], [place] [address] 13 Nov, 2011 [facility] [place] [facility] [address] [id number], [place] [address]- [address]645 12 Nov, 2011 [facility] [place] [facility] [address] [id number] [place] [address] Sep, [facility] [place] [facility] [address] [id number] [place] [address] 0997 Sep, [facility] [place] [facility] [address] [id number] [place] [address] 6735 Aug, [facility] [place] [facility] [address] [id number] [place] [address] 9926 Aug, [facility] [address] [id number] [place] [address] 1782 Aug, [facility] [address] [id number] [place] [address] 1206 Aug, [facility] [address] [id number] [place] [address] 8896 June, [facility] [address] [id number] [place] [address]- 2546 June, [facility] [address] [id number] [place] [address]- 0946 May, [facility] [address] [id number] [place] [address]- [address]36 Apr, [facility] [address] [id number] [place] [address]- 6[address] Apr, [facility] [address] [id number] [place] [address] 9006 Apr, [facility] [address] [id number] [place] [address]- 6118 Apr, [facility] [address] [id number] [place] [address]- 1293 Apr, [facility] [address] [id number] [place] [address]- 0406 Apr, [facility] [address] [id number] [place] [address]- 2546 Mar, [facility] [address] [id number] [place] [address] 4576 Mar, [facility] [address] [id number] [place] [address]- 2546 Mar, [facility] [address] [id number] [place] [address]- 1580 Jan, [facility] [place] [facility] [address] [id number] [place] [address]- 0809 Jan, [facility] [place] [facility] [address] [id number] [place] [address]- 1000 Jan, [facility] [place] [facility] [address] [id number] [place] [address] Jan, [facility] [place] [facility] [address] [id number] [place] [address]- 8806 Jan, [facility] [place] [facility] [address] [id number] [place] [address]- 4337 Jan, [facility] [place] [facility] [address] [id number] [place] [address]- 1604 Jan, [facility] [place] [facility] [address] [id number] [place] [address]- 3242 Dec, [facility] [place] [facility] [address] [id number] [place] [address]- 3108 Dec, [facility] [place] [facility] [address] [id number] [place] [address]- 7366 Nov, [facility] [place] [facility] [address] [id number], [place] [address]136 Nov, [facility] [place] [facility] [address] [id number], [place] [address]- [address]754 Nov, [facility] [place] [facility] [address] [id number], [place] [address]- [address]247 Nov, [facility] [place] [facility] [address] [id number], [place] [address] 479[address] Oct, [facility] [place] [facility] [address] [id number], [place] [address]- 4111 Sep, [facility] [place] [facility] [address] [id number], [place] [address]- 8819 Mar, [facility] [place] [facility] [address] [id number], [place] [address]- [address]80 Jan, [facility] [address] [id number] [place] [address]- 8257 Dec, [facility] [place] [facility] [address] [id number], [place] [address]- 9975 Dec, [facility] [address] [facility] [id number] [place] [address]- 0597 Dec, [facility] [place] [facility] [address] [id number] [place] [address]- 0133 Dec, [facility] [address] [facility] [id number] [place] [address], [place] 26 Nov, 2009 [facility] [place] [facility] [address] [id number] [place] [address] 15 Nov, 2009 [facility] [address] [facility] [id number], [place] [address]- 4315 14 Nov, 2009 [facility] [address] [facility] [id number], [place] [address]- 4084 14 Nov, 2009 [facility] [address] [id number], [place] [address] 6844 Oct, [facility] [address] [facility] [id number], [place] [address]- 2901 Jul, [facility] [address] [id number], [place] [address]- 8359 June, [facility] [place] [facility] [address] [facility] [id number], [place] [address]- 2847 June, [facility] [address] [facility] [id number], [place] [address]- 7144 Apr, [facility] [place] [facility] [address] [id number], [place] [address]- 7015 Mar, [facility] [address] [facility] [id number], [place] [address]- 8125 Jan, [facility] [place] [facility] [id number], [place] [address] Jan, [facility] [id number], [place] [address]- 65[address] Dec, [facility] [id number], [place] [address]- 9458 Dec, [facility] [id number] [place] [address]177- 9998 Dec, [facility] [id number], [place] [address]- 4969 Dec, [facility] [id number] [place] [address] 716512- 7687 Nov, [facility] [id number], [place] [address]- 9727 Jul, [facility] [id number], [place] [address] June, IMMUNIZATIONS No Known Immunizations SOCIAL HISTORY [...]
[2018-02-26 20:00] LABS: ERYTHROCYTE SEDIMENTATION RATE 15 MM/HR (0-30)
[2018-02-26 20:06] LABS: ALBUMIN 3.6 GM/DL (3.2-4.5); BILIRUBIN,TOTAL 0.3 MG/DL (0.1-1.0); CALCIUM 8.9 MG/DL (8.5-10.1); CREATININE SERUM 1.42 MG/DL (0.60-1.30); POTASSIUM 3.8 MMOL/L (3.6-5.0); TOTAL PROTEIN 6.8 GM/DL (6.4-8.2)
--- OUTSIDE RECORDS SUMMARY | 2018-02-26 20:09 | XMS REPORT | Continuity of Care Document ---
Author Author Formerly [facility] Address Unknown Phone Unavailable Allergies Active Description Code Type Severity Reaction Onset Reported/Identified Relationship to Patient Clinical Status Yes ampicillin Drug Allergy 05/24/2008 Yes ampicillin Drug Allergy N/A N/A 05/24/2008 Yes ampicillin [id number] Drug Allergy Mild RASH 04/22/2009 Yes Penicillins [id number] Drug Allergy Mild N/A 07/04/2009 Yes benazepril 20 mg tablet Drug Allergy N/A N/A 09/01/2013 Yes EGGS EGGS Unknown N/A 12/23/2013 Yes sulfacetamide [id number] Drug Allergy Mild "MADE ME FEEL B 03/19/2015 Yes egg [id number] Drug Allergy Unknown N/A 07/19/2015 Medications There is no data. Problems Date Dx Coded Attending Type Code Diagnosis Diagnosed By 01/29/1534 QUETA PITTMAN Ot M54.5 LOW BACK PAIN 11/17/2007 JULIET BELTRAN DO 465.9 UPPER RESPIRATORY [...] APRNIA R 465.9 UPPER RESPIRATORY INFECTION 11/17/2007 RAHUL ZHU APRN R V16.49 FAMILY HISTORY OF MALIGNANT NEOPLASM OF OTHER 11/17/2007 BELTRAN DO, JULIET K 465.9 UPPER RESPIRATORY INFECTION 11/17/2007 BELTRAN DO, JULIET K V16.49 FAMILY HISTORY OF MALIGNANT NEOPLASM OF OTHER 11/17/2007 465.9 UPPER RESPIRATORY INFECTION 11/17/2007 V16.49 FAMILY HISTORY OF MALIGNANT NEOPLASM OF OTHER 11/17/2007 RAHUL ZHU APRN R 465.9 UPPER RESPIRATORY INFECTION 11/17/2007 RAHUL ZHU APRN R V16.49 FAMILY HISTORY OF MALIGNANT NEOPLASM [...] HISTORY OF MALIGNANT NEOPLASM OF OTHER 11/17/2007 RAHUL ZHU APRN R 465.9 UPPER RESPIRATORY INFECTION 11/17/2007 RHAUL ZHU APRN R V16.49 FAMILY HISTORY OF MALIGNANT NEOPLASM [...] MALIGNANT NEOPLASM OF OTHER 11/17/2007 BELTRAN DO, JLUIET K 465.9 UPPER RESPIRATORY INFECTION 11/17/2007 BELTRAN [...] STEVENSON MD 465.9 UPPER RESPIRATORY INFECTION 11/17/2007 GRAHAM ESTRELLA, CHRIS Steiner V16.49 FAMILY HISTORY OF MALIGNANT NEOPLASM OF [...] OF MALIGNANT NEOPLASM OF OTHER 11/17/2007 ZHU COST ESTIMATING MANAGER, RAHUL R 465.9 UPPER RESPIRATORY INFECTION 11/17/2007 ZHU COST ESTIMATING MANAGER, RAHUL R V16.49 FAMILY HISTORY OF MALIGNANT [...] K 465.9 UPPER RESPIRATORY INFECTION 11/17/2007 JULIET BELRTAN DO K V16.49 FAMILY HISTORY OF MALIGNANT NEOPLASM OF OTHER 11/17/2007 MARIBEL BELTRAN DOA K 465.9 UPPER RESPIRATORY INFECTION 11/17/2007 MARIBEL BELTRAN DOA K V16.49 FAMILY HISTORY OF MALIGNANT NEOPLASM [...] DIAGNOSIS 05/04/2008 NODX NO DIAGNOSIS 05/04/2008 ZHU COST ESTIMATING MANAGER, RAHUL R NODX NO DIAGNOSIS 05/04/2008 BELTRAN DO, JULIET K NODX NO DIAGNOSIS 05/04/2008 NODX NO DIAGNOSIS 05/04/2008 ZHU COST ESTIMATING MANAGER, RAHUL R NODX NO DIAGNOSIS 05/04/2008 BELTRAN DO, JULIET K NODX NO DIAGNOSIS 05/04/2008 NODX NO DIAGNOSIS 05/04/2008 NODX NO DIAGNOSIS 05/04/2008 NODX NO DIAGNOSIS 05/04/2008 BELTRAN DO, JULIET K NODX NO DIAGNOSIS 05/04/2008 AUDRA COST ESTIMATING MANAGER, RAHUL R NODX NO DIAGNOSIS 05/04/2008 BELTRAN [...] DPM, KELLE NODX NO DIAGNOSIS 05/04/2008 ZHU COST ESTIMATING MANAGER, RAHUL R NODX NO DIAGNOSIS 05/04/2008 BELTRAN [...] NODX NO DIAGNOSIS 05/24/2008 BELTRAN DO, JULIET Sommers 388.7 OTALGIA 05/24/2008 BELTRAN DO, JULIET Sommers 401.9 Combined Systolic And Diastolic Elevation 05/24/2008 [...] RAHUL ZHU APRN R 388.7 OTALGIA 05/24/2008 RAHUL ZHU APRN R 401.9 Combined Systolic And Diastolic Elevation 05/24/2008 BELTRAN DO, JULIET K 388.7 OTALGIA 05/24/2008 BELTRAN DO, JULIET K 401.9 Combined Systolic And Diastolic Elevation 05/24/2008 388.7 OTALGIA 05/24/2008 401.9 Combined Systolic And Diastolic Elevation 05/24/2008 RAHUL ZHU APRN R 388.7 OTALGIA 05/24/2008 RAHUL ZHU APRN R 401.9 Combined Systolic And Diastolic Elevation [...] 401.9 Combined Systolic And Diastolic Elevation 05/24/2008 EBLTRAN DO, JULIET K 388.7 OTALGIA 05/24/2008 BELTRAN [...] COMBINED SYSTOLIC AND DIASTOLIC ELEVATION 05/24/2008 ZHU COST ESTIMATING MANAGER, RAHUL R 388.7 OTALGIA 05/24/2008 ZHU COST ESTIMATING MANAGER, RAHUL R 401.9 COMBINED SYSTOLIC AND DIASTOLIC [...] BENIGN 05/25/2008 401.1 ESSENTIAL HYPERTENSION BENIGN 05/25/2008 SHANNON ZHU APRNIA R 401.1 ESSENTIAL HYPERTENSION BENIGN 05/25/2008 BELTRAN DO, JULIET K 401.1 ESSENTIAL HYPERTENSION BENIGN 05/25/2008 401.1 ESSENTIAL HYPERTENSION BENIGN 05/25/2008 ALFRED ZHU APRNRICIA R 401.1 ESSENTIAL HYPERTENSION BENIGN 05/25/2008 BELTRAN DO, JULIET K 401.1 ESSENTIAL HYPERTENSION BENIGN 05/25/2008 401.1 ESSENTIAL HYPERTENSION BENIGN 05/25/2008 401.1 ESSENTIAL HYPERTENSION BENIGN 05/25/2008 401.1 ESSENTIAL HYPERTENSION BENIGN 05/25/2008 BELTRAN DO, JULIET K 401.1 ESSENTIAL HYPERTENSION BENIGN 05/25/2008 SHANNON ZHU APRNIA R 401.1 ESSENTIAL HYPERTENSION BENIGN 05/25/2008 BELTRAN [...] JULIET K 401.1 ESSENTIAL HYPERTENSION BENIGN 05/25/2008 CHIRS STEVENSON MD 401.1 ESSENTIAL HYPERTENSION BENIGN 05/25/2008 CHRIS STEVENSON [...] K 401.1 ESSENTIAL HYPERTENSION BENIGN 05/25/2008 LUCA ROBBINS, KELLE 401.1 ESSENTIAL HYPERTENSION BENIGN 05/25/2008 SHANNON ZHU APRNIA R 401.1 ESSENTIAL HYPERTENSION BENIGN 05/25/2008 BELTRAN [...] STEVENSON MD 401.1 ESSENTIAL HYPERTENSION BENIGN 05/25/2008 CHRIS STEVENSON [...] STEVENSON MD N 278.01 OBESITY MORBID 06/26/2008 GRAHAM ESTRELLA, CHRIS N 278.01 OBESITY MORBID 06/26/2008 BELTRAN DO, JULIET K 278.01 OBESITY MORBID 06/26/2008 BELTRAN DO, JULIET K 278.01 OBESITY MORBID 06/26/2008 BELTRAN DO, JULIET K 278.01 OBESITY MORBID 06/26/2008 BELTRAN DO, JULIET K 278.01 OBESITY MORBID 06/26/2008 BELTRAN DO, JULIET K 278.01 OBESITY MORBID 06/26/2008 BELTRAN DO, JULIET K 278.01 OBESITY MORBID 06/26/2008 LUCA ROBBINS, KELLE 278.01 OBESITY MORBID 06/26/2008 RAHUL ZHU APRN 278.01 OBESITY MORBID 06/26/2008 BELTRAN DO, JULIET [...] 07/11/2008 716.90 ARTHROPATHY 07/11/2008 RAHUL ZHU APRN 716.90 ARTHROPATHY 07/11/2008 BELTRAN DO, JULIET K 716.90 ARTHROPATHY 07/11/2008 716.90 ARTHROPATHY 07/11/2008 RAHUL ZHU APRN 716.90 ARTHROPATHY 07/11/2008 BELTRAN DO, JULIET K 716.90 ARTHROPATHY 07/11/2008 716.90 ARTHROPATHY 07/11/2008 716.90 ARTHROPATHY 07/11/2008 716.90 ARTHROPATHY 07/11/2008 BELTRAN DO, JULIET K 716.90 ARTHROPATHY 07/11/2008 RAHUL ZHU APRN 716.90 [...] 07/11/2008 CHRIS STEVENSON MD 716.90 ARTHROPATHY 07/11/2008 CHRIS STEVENSON MD 716.90 ARTHROPATHY 07/11/2008 BELTRAN DO, JULIET K 716.90 ARTHROPATHY 07/11/2008 BELTRAN DO, JULIET K 716.90 ARTHROPATHY 07/11/2008 BELTRAN DO, JULIET K 716.90 ARTHROPATHY 07/11/2008 BELTRAN DO, JULIET K 716.90 ARTHROPATHY 07/11/2008 BELTRAN DO, JULIET K 716.90 ARTHROPATHY 07/11/2008 BELTRAN DO, JULIET K 716.90 ARTHROPATHY 07/11/2008 LUCA ROBBINS KELLE 716.90 ARTHROPATHY 07/11/2008 RAHUL ZHU APRN [...] JULIET K 716.90 ARTHROPATHY 08/11/2008 BELTRAN DO, JUILET K 789.00 ABDOMINAL PAIN UNSPECIFIED SITE 08/11/2008 [...] 789.00 ABDOMINAL PAIN UNSPECIFIED SITE 08/11/2008 AUDRA DIAZALFREDRAHUL R 789.00 ABDOMINAL PAIN UNSPECIFIED SITE 08/11/2008 [...] K 789.00 ABDOMINAL PAIN UNSPECIFIED SITE 08/11/2008 LUCA DPM, KELLE 789.00 ABDOMINAL PAIN UNSPECIFIED SITE 08/11/2008 AUDRA COST ESTIMATING MANAGERRAHUL R 789.00 ABDOMINAL PAIN UNSPECIFIED SITE 08/11/2008 BELTRAN DO, JULIET K 789.00 ABDOMINAL PAIN UNSPECIFIED SITE 08/11/2008 BELTRAN DO, JULIET K 789.00 ABDOMINAL PAIN UNSPECIFIED SITE 08/11/2008 BELTRAN DO, JULIET K 789.00 ABDOMINAL PAIN UNSPECIFIED SITE 08/11/2008 BELTRAN DO, JULIET K 789.00 ABDOMINAL PAIN UNSPECIFIED SITE 08/11/2008 BELTRAN DO, JULIET K 789.00 ABDOMINAL PAIN UNSPECIFIED SITE 08/11/2008 DEVIN WATTERS JULIET K 789.00 ABDOMINAL PAIN UNSPECIFIED SITE 08/11/2008 CHRIS STEVENSON MD N 789.00 ABDOMINAL PAIN UNSPECIFIED SITE 08/11/2008 CHRIS STEVENSON MD N 789.00 ABDOMINAL PAIN UNSPECIFIED SITE 08/11/2008 BELTRAN MARIBEL WATTERSA K 789.00 ABDOMINAL PAIN UNSPECIFIED SITE 08/11/2008 BELTRAN DO JULIET K 789.00 ABDOMINAL PAIN UNSPECIFIED SITE 08/11/2008 CHRIS STEVENSON MD N 789.00 ABDOMINAL PAIN UNSPECIFIED SITE 08/11/2008 CHRIS STEVENSON MD N 789.00 ABDOMINAL PAIN UNSPECIFIED SITE 08/11/2008 BELTRAN DO JULIET K 789.00 ABDOMINAL PAIN UNSPECIFIED SITE 08/11/2008 GRAHAM ESTRELLA, CHRIS N 789.00 ABDOMINAL PAIN UNSPECIFIED SITE 08/11/2008 BELTRAN DO JULIET K 789.00 ABDOMINAL PAIN UNSPECIFIED SITE 04/18/2009 MARIBEL BELTRAN DOA K 724.2 lower back pain 04/18/2009 MARIBEL BELTRAN DOA K 729.2 RADICULOPATHY 04/18/2009 724.2 lower back [...] RAHUL ZHU APRN R 729.2 RADICULOPATHY 04/18/2009 BELTRAN DO, JULIET K 724.2 lower back pain 04/18/2009 BELTRAN DO, JULIET K 729.2 RADICULOPATHY 04/18/2009 724.2 lower back pain 04/18/2009 729.2 RADICULOPATHY 04/18/2009 AUDRA COST ESTIMATING MANAGERRAHUL Steiner R 724.2 lower back pain 04/18/2009 SHANNON ZHU APRNIA R 729.2 RADICULOPATHY 04/18/2009 BELTRAN DO, JULIET [...] APRNIA R 724.2 lower back pain 04/18/2009 SHANNON ZHU APRNIA R 729.2 RADICULOPATHY 04/18/2009 BELTRAN DO, JULIET [...] JULIET K 724.2 lower back pain 04/18/2009 BLETRAN DO, JULIET K 729.2 RADICULOPATHY 04/18/2009 BELTRAN DO, JULIET K 724.2 lower back pain 04/18/2009 BELTRAN DO, JULIET K 729.2 RADICULOPATHY 04/18/2009 CHRIS STEVENSON MD N 724.2 lower back pain 04/18/2009 CHRIS STEVENSON MD 729.2 RADICULOPATHY 04/18/2009 CHRIS STEVENSON MD 724.2 [...] BELTRAN DO, JULIET K 729.2 RADICULOPATHY 04/18/2009 LCUA DPM, KELLE 724.2 lower back pain 04/18/2009 LUCA DPM, KELLE 729.2 RADICULOPATHY 04/18/2009 ZHU COST ESTIMATING MANAGER, RAHUL R 724.2 lower back pain 04/18/2009 ZHU COST ESTIMATING MANAGER, RAHUL R 729.2 RADICULOPATHY 04/18/2009 BELTRAN DO, [...] CHRIS Steiner 724.2 lower back pain 04/18/2009 RGAHAM ESTRELLA, CHRIS Steiner 729.2 RADICULOPATHY 04/18/2009 CHRIS STEVENSON MD N 724.2 lower back pain 04/18/2009 CHRIS STEVENSON MD N 729.2 RADICULOPATHY 04/18/2009 JULIET BELTRAN DO K 724.2 lower back pain 04/18/2009 JULIET BELTRAN DO K 729.2 RADICULOPATHY 04/18/2009 JULIET BELTRAN DO K 724.2 lower back pain 04/18/2009 JULIET BELTRAN DO K 729.2 RADICULOPATHY 04/18/2009 CHRIS STEVENSON MD N 724.2 lower back pain 04/18/2009 CHRIS STEVENSON MD N 729.2 RADICULOPATHY 04/18/2009 CHRIS STEVENSON MD N 724.2 lower back pain 04/18/2009 CHRIS STEVENSON MD N 729.2 RADICULOPATHY 04/18/2009 JULIET BELTRAN DO K 724.2 lower back pain 04/18/2009 JULIET BELTRAN DO K 729.2 RADICULOPATHY 04/18/2009 CHRIS STEVENSON MD [...] 05/01/2009 836.0 Acute Meniscal Tear Medial 05/01/2009 ZHU COST ESTIMATING MANAGER, RAHUL R 836.0 Acute Meniscal Tear Medial 05/01/2009 BELTRAN DO, JULIET K 836.0 Acute Meniscal Tear Medial 05/01/2009 836.0 Acute Meniscal Tear Medial 05/01/2009 836.0 Acute Meniscal Tear Medial 05/01/2009 836.0 Acute Meniscal Tear Medial 05/01/2009 BELTRAN DO, JULIET K 836.0 Acute Meniscal Tear Medial 05/01/2009 SHANNON ZHU APRNIA R 836.0 Acute Meniscal Tear Medial 05/01/2009 [...] K 836.0 Acute Meniscal Tear Medial 05/01/2009 KELLE DIAZ DPM 836.0 Acute Meniscal Tear Medial 05/01/2009 RAHUL [...] KELLE 789.00 Abdominal Pain Unspecified Site 07/16/2009 RAHUL ZHU APRN 789.00 Abdominal Pain Unspecified Site 07/16/2009 BELTRNA DO, JULIET K 789.00 Abdominal Pain Unspecified [...] 458.0 Orthostatic Hypotension 08/21/2009 BRIDGETT AGUILERA APRN 458.0 Orthostatic Hypotension 08/21/2009 458.0 Orthostatic Hypotension 08/21/2009 458.0 Orthostatic Hypotension 08/21/2009 458.0 Orthostatic Hypotension 08/21/2009 458.0 Orthostatic Hypotension 08/21/2009 AUDRA DIAZ, RAHUL R 458.0 Orthostatic Hypotension 08/21/2009 BELTRAN DO, JULIET K 458.0 Orthostatic Hypotension 08/21/2009 458.0 Orthostatic Hypotension 08/21/2009 AUDRA COST ESTIMATING MANAGER, RAHUL R 458.0 Orthostatic Hypotension 08/21/2009 BELTRAN [...] DPM, KELLE 458.0 Orthostatic Hypotension 08/21/2009 AUDRA COST ESTIMATING MANAGER, RAHUL R 458.0 Orthostatic Hypotension 08/21/2009 BELTRAN DO, JULIET K 458.0 Orthostatic Hypotension 08/21/2009 BELTRAN DO, JULIET K 458.0 Orthostatic Hypotension 08/21/2009 BELTRAN DO, JULIET K 458.0 Orthostatic Hypotension 08/21/2009 BELTRAN DO, JULIET K 458.0 Orthostatic Hypotension 08/21/2009 BELTRAN DO, JULIET K 458.0 Orthostatic Hypotension 08/21/2009 BELTRAN DO, JULIET K 458.0 Orthostatic Hypotension 08/21/2009 GRAHAM MD, CHRIS N 458.0 Orthostatic Hypotension 08/21/2009 GRAHAM ESTRELLA, CHRIS [...] DO, JULIET K 728.87 muscle weakness 08/28/2009 BLETRAN DO, JULIET K 781.0 Tremor 08/28/2009 728.87 muscle weakness 08/28/2009 781.0 Tremor 08/28/2009 728.87 muscle weakness 08/28/2009 781.0 Tremor 08/28/2009 WESTON AGUILERA APRNA S 728.87 muscle weakness 08/28/2009 SHERON AGUILERA APRNNDA S 781.0 Tremor 08/28/2009 728.87 Muscle Weakness 08/28/2009 781.0 Tremor 08/28/2009 728.87 Muscle Weakness 08/28/2009 781.0 Tremor 08/28/2009 728.87 Muscle Weakness 08/28/2009 781.0 Tremor 08/28/2009 728.87 Muscle Weakness 08/28/2009 781.0 Tremor 08/28/2009 ZHU COST ESTIMATING MANAGER, RAHUL R 728.87 Muscle Weakness 08/28/2009 AUDRA COST ESTIMATING MANAGER, RAHUL R 781.0 Tremor 08/28/2009 BELTRAN DO, JULIET K 728.87 Muscle Weakness 08/28/2009 BELTRAN DO, JULIET K 781.0 Tremor 08/28/2009 728.87 Muscle Weakness 08/28/2009 781.0 Tremor 08/28/2009 ZHU COST ESTIMATING MANAGER, RAHUL R 728.87 Muscle Weakness 08/28/2009 AUDRA COST ESTIMATING MANAGER, RAHUL R 781.0 Tremor 08/28/2009 BELTRAN DO, JULIET K 728.87 Muscle Weakness 08/28/2009 BELTRAN DO, JULIET K 781.0 Tremor 08/28/2009 728.87 Muscle Weakness 08/28/2009 781.0 Tremor 08/28/2009 728.87 Muscle Weakness 08/28/2009 781.0 Tremor 08/28/2009 728.87 Muscle Weakness 08/28/2009 781.0 Tremor 08/28/2009 BELTRAN DO, JULIET K 728.87 Muscle Weakness 08/28/2009 BELTRAN DO, JULIET K 781.0 Tremor 08/28/2009 ZHU COST ESTIMATING MANAGER, RAHUL R 728.87 Muscle Weakness 08/28/2009 ZHU COST ESTIMATING MANAGER, RAHUL R 781.0 Tremor 08/28/2009 BELTRAN DO, [...] BELTRAN DO, JULIET K 781.0 Tremor 08/28/2009 BELRTAN DO, JULIET K 728.87 Muscle Weakness 08/28/2009 [...] LUCA DPM, KELLE 781.0 Tremor 08/28/2009 ZHU COST ESTIMATING MANAGER, RAHUL R 728.87 Muscle Weakness 08/28/2009 ZHU COST ESTIMATING MANAGER, RAHUL R 781.0 Tremor 08/28/2009 BELTRAN DO, [...] DO, JULIET K 781.0 Tremor 10/03/2009 BELTRAN DO, JULIET K 722.4 DEGENERATION [...] 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 10/03/2009 BELTRNA DO, JULIET K 722.4 DEGENERATION OF CERVICAL [...] OF CERVICAL INTERVERTEBRAL DISC 10/03/2009 BELTRAN DO, JULITE K 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 10/03/2009 MARIBEL BELTRAN DOA K 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 10/03/2009 MARIBEL BELTRAN DOA K 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 10/03/2009 MARIBEL BELTRAN DOA K 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 10/03/2009 BELTRAN DO JULIET K 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 10/03/2009 CHRIS STEVENSON MD N 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 10/03/2009 CHRIS STEVENSON MD N 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 10/03/2009 JULIET BELTRAN DO K 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 10/03/2009 MARIBEL BELTRAN DOA K 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 10/03/2009 CHRIS STEVENSON MD N 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 10/03/2009 CHRIS STEVENSON MD N 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 10/03/2009 JULIET BELTRAN DO K 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 10/03/2009 CHRIS STEVENSON MD N 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 10/03/2009 MARIBEL BELTRAN DOA K 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 10/22/2009 JULIET BELTRAN DO K 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 10/22/2009 MARIBEL BELTRAN DOA K 792.1 Change In The Stool Color 10/22/2009 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 10/22/2009 792.1 Change In The Stool Color 10/22/2009 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 10/22/2009 792.1 Change In The Stool Color 10/22/2009 BRIDGETT AGUILERA APRN S 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 10/22/2009 BRIDGETT AGUILERA APRN S 792.1 Change In The Stool Color 10/22/2009 [...] 792.1 Change In The Stool Color 10/22/2009 BLETRAN DO, JULIET K 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 10/22/2009 BELTRAN [...] CHRIS STEVENSON MD N 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 10/22/2009 HCRIS STEVENSON MD N 792.1 Change In The Stool Color 10/22/2009 CHRIS STEVENSON MD N 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 10/22/2009 GRAHAM ESTRELLA, CHRIS Steiner 792.1 Change In The Stool Color 10/22/2009 [...] 792.1 Change In The Stool Color 10/22/2009 AUDRA COST ESTIMATING MANAGER, RAHUL R 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 10/22/2009 ZHU COST ESTIMATING MANAGER, RAHUL R 792.1 Change In The Stool Color 10/22/2009 BELTRAN DO, JULIET K 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 10/22/2009 BELTRAN DO, JULIET K 792.1 Change In The Stool Color 10/22/2009 BELTRAN DO, UJLIET K 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 10/22/2009 BELTRAN DO, JULIET [...] DEVIN DOMARIBELA K 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 10/22/2009 BELTRAN DO, JULIET K 792.1 Change In The Stool Color 10/22/2009 MARIBEL BELTRAN DOA K 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 10/22/2009 DEVIN DOMARIBELA K 792.1 Change In The Stool Color 10/22/2009 CHRIS STEVENSON MD N 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 10/22/2009 CHRIS STEVENOSN MD N 792.1 Change In The Stool Color 10/22/2009 CHRIS STEVENSON MD N 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 10/22/2009 CHRIS STEVENSON MD N 792.1 Change In The Stool Color 10/22/2009 DEVIN DOMARIBELA K 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 10/22/2009 MARIBEL BELTRAN DOA K 792.1 Change In The Stool Color 10/22/2009 CHRIS STEVENSON MD N 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 10/22/2009 CHRIS STEVENSON MD N 792.1 Change In The Stool Color 10/22/2009 MARIBEL BELTRAN DOA K 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 10/22/2009 BELTRAN MARIBEL WATTERSA K 792.1 Change In The Stool Color 11/02/2009 MARIBEL BELTRAN DOA K 783.21 recent weight loss (___ lbs) [...] Weight Loss (___ Lbs) [reported] 11/02/2009 BELTRAN DOMARIBELA K 783.21 Recent Weight Loss (___ Lbs) [reported] 11/02/2009 MARIBEL BELTRAN DOA K 783.21 Recent Weight Loss (___ Lbs) [reported] 11/02/2009 DEVIN WATTERS JULIET K 783.21 Recent Weight Loss (___ [...] Backache Unspecified 11/12/2009 724.5 Backache Unspecified 11/12/2009 SHANNON ZHU APRNIA R 724.5 Backache Unspecified 11/12/2009 BELTRAN DO, JULIET K 724.5 Backache Unspecified 11/12/2009 724.5 Backache Unspecified 11/12/2009 AUDRA COST ESTIMATING MANAGERSHANNON SteinerIA R 724.5 Backache Unspecified 11/12/2009 BELTRAN DO, JULIET K 724.5 Backache Unspecified 11/12/2009 724.5 Backache Unspecified 11/12/2009 724.5 Backache Unspecified 11/12/2009 724.5 Backache Unspecified 11/12/2009 BELTRAN DO, JULIET K 724.5 Backache Unspecified 11/12/2009 SHANNON ZHU APRNIA R 724.5 Backache Unspecified 11/12/2009 BELTRAN DO, JULIET K 724.5 Backache Unspecified 11/12/2009 BELTRAN DO, JULIET K 724.5 Backache Unspecified 11/12/2009 BELTRAN DO, JULIET K 724.5 Backache Unspecified 11/12/2009 BELTRAN DO, JULIET K 724.5 Backache Unspecified 11/12/2009 BELTRAN DO, JLUIET K 724.5 Backache Unspecified 11/12/2009 BELTRAN DO, [...] MD N 724.5 Backache Unspecified 11/12/2009 BELTRAN DO, JULIET [...] MD N 724.5 Backache Unspecified 11/12/2009 BELTRAN DO, JULIET K 724.5 Backache Unspecified 11/12/2009 BELTRAN DO, JULIET K 724.5 Backache Unspecified 11/12/2009 BELTRAN DO, JULIET K 724.5 Backache Unspecified 11/12/2009 BELTRAN DO, JULIET K 724.5 Backache Unspecified 11/12/2009 BELTRAN DO, JULIET K 724.5 Backache Unspecified 11/12/2009 BELTRAN DO, JULIET K 724.5 Backache Unspecified 11/12/2009 LUCA ROBBINS, KELLE 724.5 Backache Unspecified 11/12/2009 RAHUL ZHU [...] 724.5 Backache Unspecified 11/12/2009 JULIET BELTRAN DO 724.5 Backache Unspecified 11/12/2009 MARIBEL BELTRAN DOA K 724.5 Backache Unspecified 11/12/2009 CHRIS STEVENSON MD N 724.5 Backache Unspecified 11/12/2009 CHRIS STEVENSON MD N 724.5 Backache Unspecified 11/12/2009 JULIET BELTRAN DO 724.5 Backache Unspecified 11/12/2009 CHRIS STEVENSON MD N 724.5 Backache Unspecified 11/12/2009 JULIET BELTRAN DO 724.5 Backache Unspecified 11/20/2009 Ot 211.3 11/20/2009 Ot 530.11 11/20/2009 Ot 535.40 11/20/2009 Ot 569.3 11/20/2009 Ot V16.0 03/07/2010 Ot 787.91 03/11/2010 JULIET BELTRAN DO K 780.79 FATIGUE 03/11/2010 780.79 FATIGUE 03/11/2010 780.79 FATIGUE 03/11/2010 BRIDGETT AGUILERA APRN 780.79 FATIGUE 03/11/2010 780.79 FATIGUE 03/11/2010 780.79 FATIGUE 03/11/2010 780.79 FATIGUE 03/11/2010 780.79 FATIGUE 03/11/2010 RAHUL ZHU APRN 780.79 FATIGUE 03/11/2010 BELTRAN MARIBEL WATTERSA K 780.79 FATIGUE 03/11/2010 780.79 FATIGUE 03/11/2010 RAHUL ZHU APRN 780.79 FATIGUE 03/11/2010 BELTRAN MARIBEL WATTERSA K 780.79 FATIGUE 03/11/2010 780.79 FATIGUE 03/11/2010 780.79 FATIGUE 03/11/2010 780.79 FATIGUE 03/11/2010 BELTRAN MARIBEL WATTERSA K 780.79 FATIGUE 03/11/2010 RAHUL ZHU APRN 780.79 FATIGUE 03/11/2010 DEVIN WATTERS JULIET K 780.79 FATIGUE 03/11/2010 BELTRAN DO JULIET K 780.79 FATIGUE 03/11/2010 BELTRAN DO [...] K 780.79 FATIGUE 03/11/2010 CHRIS STEVENSON MD N 780.79 FATIGUE 03/11/2010 CHRIS STEVENSON MD 780.79 FATIGUE 03/11/2010 BELTRAN DO, JULIET K 780.79 FATIGUE 03/11/2010 BELTRAN DO, JULIET K 780.79 FATIGUE 03/11/2010 BELTRAN DO, JULIET K 780.79 FATIGUE 03/11/2010 BELTRAN DO, JULIET K 780.79 FATIGUE 03/11/2010 BELTRAN DO, JULIET K 780.79 FATIGUE 03/11/2010 BELTRAN DO, JULIET K 780.79 FATIGUE 03/11/2010 LUCA DPM, KELLE 780.79 FATIGUE 03/11/2010 RAHUL ZHU APRN R 780.79 FATIGUE 03/11/2010 BELTRAN DO, JULIET K 780.79 FATIGUE 03/11/2010 BELTRAN DO, JULIET K 780.79 FATIGUE 03/11/2010 BELTRAN DO, JULIET K 780.79 FATIGUE 03/11/2010 BELTRAN DO, JULIET K 780.79 FATIGUE 03/11/2010 BELTRAN DO, JULIET K 780.79 FATIGUE 03/11/2010 BELTRAN DO, JULIET K 780.79 FATIGUE 03/11/2010 CHRIS STEVENSON MD N 780.79 FATIGUE 03/11/2010 CHRIS STEVENSON MD 780.79 FATIGUE 03/11/2010 BELTRAN DO, JULIET K 780.79 FATIGUE 03/11/2010 BELTRAN DO, JULIET K 780.79 FATIGUE 03/11/2010 CHRIS STEVENSON MD N 780.79 FATIGUE 03/11/2010 CHRIS STEVENSON MD 780.79 FATIGUE 03/11/2010 BELTRAN DO, JULIET K 780.79 FATIGUE 03/11/2010 CHRIS STEVENSON MD N 780.79 FATIGUE 03/11/2010 BELTRAN DO, JULIET K 780.79 FATIGUE 06/07/2010 BELTRAN DOJULIET K 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's Disease 06/07/2010 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's Disease 06/07/2010 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's Disease 06/07/2010 BRIDGETT AGUILERA APRN 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's Disease 06/07/2010 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's Disease 06/07/2010 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's Disease 06/07/2010 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's Disease 06/07/2010 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's Disease 06/07/2010 RAHUL ZHU APRN 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's Disease 06/07/2010 BELTRAN DOJULIET K 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's Disease 06/07/2010 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's Disease 06/07/2010 RAHUL ZHU APRN 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's Disease 06/07/2010 BELTRAN DOJULIET K 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's Disease [...] K 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's Disease 06/07/2010 BELTRAN DO, JUILET K 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's Disease 06/07/2010 BELTRAN DO, [...] 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's Disease 06/07/2010 GRAHAM ESTRELLA, CHRIS N 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's Disease 06/07/2010 BELTRAN DO, JULIET K 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's Disease 06/07/2010 BELTRAN DO, JULIET K 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's Disease 06/07/2010 BELTRAN DO, JULIET K 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's Disease 06/07/2010 BELTRAN DO, JULIET K 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's Disease 06/07/2010 BELTRAN DO, JULIET K 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's Disease 06/07/2010 BELTRAN DO, JULIET K 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's Disease 06/07/2010 GRAHAM ESTRELLA, CHRIS Steiner 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's Disease 06/07/2010 GRAHAM ESTRELLA, CHRIS N 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's Disease 06/07/2010 BELTRAN DO, JULIET K 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's Disease 06/07/2010 BELTRAN DO, JULIET K 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's Disease 06/07/2010 BELTRAN DO, JULIET K 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's Disease 06/07/2010 BELTRAN DO, JULIET K 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's Disease 06/07/2010 BELTRAN DO, JULIET K 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's Disease 06/07/2010 BELTRAN DO, JULIET K 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's Disease 06/07/2010 LUCA DEVRIESM, KELLE 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's Disease 06/07/2010 RAHUL ZHU [...] MD N 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's Disease 06/07/2010 BELTRAN DO, JULIET K 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's Disease 06/07/2010 CHRIS STEVENSON MD N 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's Disease 06/07/2010 BELTRAN DO, JULIET K 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's Disease 10/16/2010 DEVIN DO, JULIET K 272.1 HYPERTRIGLYCERIDEMIA 10/16/2010 BELTRAN DO JULIET K 274.9 GOUT 10/16/2010 272.1 HYPERTRIGLYCERIDEMIA 10/16/2010 274.9 GOUT 10/16/2010 272.1 HYPERTRIGLYCERIDEMIA 10/16/2010 274.9 GOUT 10/16/2010 BRIDGETT AGUILERA APRN S 272.1 HYPERTRIGLYCERIDEMIA 10/16/2010 BRIDGETT AGUILERA APRN S 274.9 GOUT 10/16/2010 272.1 HYPERTRIGLYCERIDEMIA 10/16/2010 274.9 GOUT 10/16/2010 272.1 HYPERTRIGLYCERIDEMIA 10/16/2010 274.9 GOUT 10/16/2010 272.1 HYPERTRIGLYCERIDEMIA 10/16/2010 274.9 GOUT 10/16/2010 272.1 HYPERTRIGLYCERIDEMIA 10/16/2010 274.9 GOUT 10/16/2010 SHANNON ZHU APRNIA R 272.1 HYPERTRIGLYCERIDEMIA 10/16/2010 SHANNON ZHU APRNIA R 274.9 GOUT 10/16/2010 BELTRAN DO JULIET K 272.1 HYPERTRIGLYCERIDEMIA 10/16/2010 BELTRAN DO JULIET K 274.9 GOUT 10/16/2010 272.1 HYPERTRIGLYCERIDEMIA 10/16/2010 274.9 GOUT 10/16/2010 SHANNON ZHU APRNIA R 272.1 HYPERTRIGLYCERIDEMIA 10/16/2010 ALFRED ZHU APRNRICIA R 274.9 GOUT 10/16/2010 BELTRAN DO, JULIET K 272.1 HYPERTRIGLYCERIDEMIA 10/16/2010 BELTRAN DO, JULIET K 274.9 GOUT 10/16/2010 272.1 HYPERTRIGLYCERIDEMIA 10/16/2010 274.9 GOUT 10/16/2010 272.1 HYPERTRIGLYCERIDEMIA 10/16/2010 274.9 GOUT 10/16/2010 272.1 HYPERTRIGLYCERIDEMIA 10/16/2010 274.9 GOUT 10/16/2010 BELTRAN DO, JULIET K 272.1 HYPERTRIGLYCERIDEMIA 10/16/2010 BELTRAN DO, JULIET K 274.9 GOUT 10/16/2010 ZHU COST ESTIMATING MANAGER, RAHUL R 272.1 HYPERTRIGLYCERIDEMIA 10/16/2010 ZHU COST ESTIMATING MANAGER, RAHUL R 274.9 GOUT 10/16/2010 BELTRAN DO, [...] LUCA DPM, KELLE 274.9 GOUT 10/16/2010 ZHU COST ESTIMATING MANAGER, RAHUL R 272.1 HYPERTRIGLYCERIDEMIA 10/16/2010 ZHU COST ESTIMATING MANAGER, RAHUL R 274.9 GOUT 10/16/2010 BELTRAN DO, JULIET K 272.1 HYPERTRIGLYCERIDEMIA 10/16/2010 BELTRAN DO, JULIET K 274.9 GOUT 10/16/2010 BELTRAN DO, JULIET K 272.1 HYPERTRIGLYCERIDEMIA 10/16/2010 BELTRAN DO, JULIET K 274.9 GOUT 10/16/2010 BELTRAN DO, JULITE K 272.1 HYPERTRIGLYCERIDEMIA 10/16/2010 BELTRAN DO, JULIET [...] pain in the left knee 12/11/2010 BELTRAN MARIBEL WATTERSA K 719.46 joint pain in the left knee 12/11/2010 719.46 joint pain in the left knee 12/11/2010 SHANNON ZHU APRNIA R 719.46 joint pain in the left knee 12/11/2010 BELTRAN DO, JULIET K 719.46 joint pain in the left knee 12/11/2010 719.46 joint pain in the left knee 12/11/2010 719.46 joint pain in the left knee 12/11/2010 719.46 joint pain in the left knee 12/11/2010 BELTRAN DO, JULIET K 719.46 joint pain in the left knee 12/11/2010 SHANNON ZHU APRNIA R 719.46 joint pain in the left [...] joint pain in the left knee 12/11/2010 MARIBEL BELTRAN DOA K 719.46 joint pain in the left knee 12/11/2010 BELTRAN MARIBEL WATTERSA K 719.46 joint pain in the left knee 12/11/2010 CHRIS STEVENSON MD N 719.46 joint pain in the left knee 12/11/2010 CHRIS STEVENSON MD 719.46 joint pain in the left knee 12/11/2010 JULIET BELTRAN DO K 719.46 joint pain in the left knee 12/11/2010 BELTRAN MARIBEL WATTERSA K 719.46 joint pain in the left [...] 01/02/2011 733.92 CHONDROMALACIA 01/02/2011 RAHUL ZHU APRN 733.92 CHONDROMALACIA 01/02/2011 JULIET BELTRAN DO K 733.92 CHONDROMALACIA 01/02/2011 733.92 CHONDROMALACIA 01/02/2011 RAHUL ZHU APRN R 733.92 CHONDROMALACIA 01/02/2011 MARIBEL BELTRAN DOA K 733.92 CHONDROMALACIA 01/02/2011 733.92 CHONDROMALACIA 01/02/2011 733.92 CHONDROMALACIA 01/02/2011 733.92 CHONDROMALACIA 01/02/2011 JULIET BELTRAN DO K 733.92 CHONDROMALACIA 01/02/2011 AUDRA DIAZ RAHUL R 733.92 CHONDROMALACIA 01/02/2011 BELTRAN DO, JULIET [...] BELTRAN DO, JULIET K 733.92 CHONDROMALACIA 01/02/2011 KELLE DIAZ DPM 733.92 CHONDROMALACIA 01/02/2011 RAHUL ZHU APRN 733.92 [...] NOCTURIA 02/10/2011 799.81 DECREASED LIBIDO 02/10/2011 WILLY DIAZ, BRIDGETT S 788.41 URINARY FREQUENCY 02/10/2011 WILLY DIAZ, BRIDGETT S 788.43 NOCTURIA 02/10/2011 WILLY DIAZ, BRIDGETT S 799.81 DECREASED LIBIDO 02/10/2011 788.41 URINARY FREQUENCY 02/10/2011 788.43 NOCTURIA 02/10/2011 799.81 DECREASED LIBIDO 02/10/2011 788.41 URINARY FREQUENCY 02/10/2011 788.43 NOCTURIA 02/10/2011 799.81 DECREASED LIBIDO 02/10/2011 788.41 URINARY FREQUENCY 02/10/2011 788.43 NOCTURIA 02/10/2011 799.81 DECREASED LIBIDO 02/10/2011 788.41 URINARY FREQUENCY 02/10/2011 788.43 NOCTURIA 02/10/2011 799.81 DECREASED LIBIDO 02/10/2011 SHANNON ZHU APRNIA R 788.41 URINARY FREQUENCY 02/10/2011 SHANNON ZHU APRNIA R 788.43 NOCTURIA 02/10/2011 SHANNON ZHU APRNIA R 799.81 DECREASED LIBIDO 02/10/2011 BELTRAN DO, JULIET K 788.41 URINARY FREQUENCY 02/10/2011 BELTRAN DO, JULIET K 788.43 NOCTURIA 02/10/2011 BELTRAN DO, JULIET K 799.81 DECREASED LIBIDO 02/10/2011 788.41 URINARY FREQUENCY 02/10/2011 788.43 NOCTURIA 02/10/2011 799.81 DECREASED LIBIDO 02/10/2011 SHANNON ZHU APRNIA R 788.41 URINARY FREQUENCY 02/10/2011 SHANNON ZHU APRNIA R 788.43 NOCTURIA 02/10/2011 RAHUL ZHU APRN R 799.81 DECREASED LIBIDO 02/10/2011 BELTRAN DO, [...] JULIET K 799.81 DECREASED LIBIDO 02/10/2011 ZHU COST ESTIMATING MANAGER, RAHUL R 788.41 URINARY FREQUENCY 02/10/2011 ZHU COST ESTIMATING MANAGER, RAHUL R 788.43 NOCTURIA 02/10/2011 ZHU COST ESTIMATING MANAGER, RAHUL R 799.81 DECREASED LIBIDO 02/10/2011 BELTRAN [...] DPM, KELLE 799.81 DECREASED LIBIDO 02/10/2011 ZHU COST ESTIMATING MANAGER, RAHUL R 788.41 URINARY FREQUENCY 02/10/2011 ZHU COST ESTIMATING MANAGER, RAHUL R 788.43 NOCTURIA 02/10/2011 ZHU COST ESTIMATING MANAGER, RAHUL R 799.81 DECREASED LIBIDO 02/10/2011 BELTRAN [...] DO, JULIET K 788.41 URINARY FREQUENCY 02/10/2011 BELTRNA DO JULIET K 788.43 NOCTURIA 02/10/2011 BELTRAN DO, [...] DO, JULIET K 788.43 NOCTURIA 02/10/2011 BELTRAN DO JULIET K 799.81 DECREASED LIBIDO 02/10/2011 CHRIS STEVENSON MD N 788.41 URINARY FREQUENCY 02/10/2011 CHRIS STEVENSON MD N 788.43 NOCTURIA 02/10/2011 CHRIS STEVENSON MD N 799.81 DECREASED LIBIDO 02/10/2011 BELTRAN MARIBEL WATTERSA K 788.41 URINARY FREQUENCY 02/10/2011 BELTRAN DO, JULIET K 788.43 NOCTURIA 02/10/2011 BELTRAN DO, JULIET K 799.81 DECREASED LIBIDO 02/15/2011 Ot 716.90 ARTHROPATHY NOS-UNSPEC 02/15/2011 Ot 729.81 SWELLING OF LIMB 02/28/2011 BELTRAN DO, JULIET K 790.29 HYPERGLYCEMIA 02/28/2011 790.29 HYPERGLYCEMIA 02/28/2011 790.29 HYPERGLYCEMIA 02/28/2011 BRIDGETT AGUILERA APRN 790.29 HYPERGLYCEMIA 02/28/2011 790.29 HYPERGLYCEMIA 02/28/2011 790.29 HYPERGLYCEMIA 02/28/2011 790.29 HYPERGLYCEMIA 02/28/2011 790.29 HYPERGLYCEMIA 02/28/2011 RAHUL ZHU APRN R 790.29 HYPERGLYCEMIA 02/28/2011 BELTRAN DO, JULIET K 790.29 HYPERGLYCEMIA 02/28/2011 790.29 HYPERGLYCEMIA 02/28/2011 ALFRED ZHU APRNRICIA R 790.29 HYPERGLYCEMIA 02/28/2011 BELTRAN DO, JULIET K 790.29 HYPERGLYCEMIA 02/28/2011 790.29 HYPERGLYCEMIA 02/28/2011 790.29 HYPERGLYCEMIA 02/28/2011 790.29 HYPERGLYCEMIA 02/28/2011 BELTRAN DO, JULIET K 790.29 HYPERGLYCEMIA 02/28/2011 SHANNON ZHU APRNIA R 790.29 HYPERGLYCEMIA 02/28/2011 BELTRAN DO, JULIET [...] BELTRAN DO, JULIET K 790.29 HYPERGLYCEMIA 02/28/2011 LUCA DPM, KELLE 790.29 HYPERGLYCEMIA 02/28/2011 AUDRA COST ESTIMATING MANAGER, RAHUL R 790.29 HYPERGLYCEMIA 02/28/2011 BELTRAN DO, [...] STEVENSON MD N 790.29 HYPERGLYCEMIA 02/28/2011 BELTRAN DO JULIET K 790.29 HYPERGLYCEMIA 02/28/2011 CHRIS STEVENSON MD N 790.29 HYPERGLYCEMIA 02/28/2011 BELTRAN DO, JULIET K 790.29 HYPERGLYCEMIA 03/05/2011 BELTRAN MARIBEL WATTERSA K V76.44 Prostate Screening 03/05/2011 V76.44 Prostate Screening 03/05/2011 V76.44 Prostate Screening 03/05/2011 BRIDGETT AGUILERA APRN V76.44 Prostate Screening 03/05/2011 V76.44 Prostate Screening 03/05/2011 V76.44 Prostate Screening 03/05/2011 V76.44 Prostate Screening 03/05/2011 V76.44 Prostate Screening 03/05/2011 RAHUL ZHU APRN R V76.44 Prostate Screening 03/05/2011 BELTRAN MARIBEL WATTERSA K V76.44 Prostate Screening 03/05/2011 V76.44 Prostate Screening 03/05/2011 RAHUL ZHU APRN R V76.44 Prostate Screening 03/05/2011 BELTRAN MARIBEL WATTERSA K V76.44 Prostate Screening 03/05/2011 V76.44 Prostate Screening 03/05/2011 V76.44 Prostate Screening 03/05/2011 V76.44 Prostate Screening 03/05/2011 BELTRAN DO JULIET K V76.44 Prostate Screening 03/05/2011 RAHUL ZHU APRN R V76.44 Prostate Screening 03/05/2011 BELTRAN DO JULIET K V76.44 Prostate Screening 03/05/2011 BELTRAN DO JULIET K V76.44 Prostate Screening 03/05/2011 BELTRAN DO JULIET K V76.44 Prostate Screening 03/05/2011 BELTRAN DO JULIET K V76.44 Prostate Screening 03/05/2011 BELTRAN DO JULIET K V76.44 Prostate Screening 03/05/2011 BELTRAN [...] JULIET K V76.44 Prostate Screening 03/05/2011 LUCA ROBBINS, KELLE V76.44 Prostate Screening 03/05/2011 RAHUL ZHU APRN V76.44 Prostate Screening 03/05/2011 BELTRAN DO, JULIET K V76.44 Prostate Screening 03/05/2011 BELTRAN DO, JULIET K V76.44 Prostate Screening 03/05/2011 BELTRAN DO, JUILET K V76.44 Prostate Screening 03/05/2011 BELTRAN DO, [...] JULIET K V76.44 Prostate Screening 07/01/2011 BELTRAN DO, JULIET K 477.0 ALLERGIC [...] 695.3 ROSACEA 07/01/2011 V77.1 DIABETES SCREENING 07/01/2011 WILLY COST ESTIMATING MANAGER, BRIDGETT S 477.0 ALLERGIC RHINITIS DUE TO POLLEN 07/01/2011 SHERON AGUILERA APRNNDA S 564.1 IRRITABLE BOWEL SYNDROME 07/01/2011 BRIDGETT AGUILERA APRN S 695.3 ROSACEA 07/01/2011 WESTON AGUILERA APRNA S V77.1 DIABETES SCREENING 07/01/2011 477.0 ALLERGIC [...] RAHUL ZHU APRN R 695.3 ROSACEA 07/01/2011 RAUHL ZHU APRN R V77.1 DIABETES SCREENING 07/01/2011 [...] 477.0 ALLERGIC RHINITIS DUE TO POLLEN 07/01/2011 ALFRED ZHU APRNRICIA R 564.1 IRRITABLE BOWEL SYNDROME 07/01/2011 ALFRED [...] RAHUL R 564.1 IRRITABLE BOWEL SYNDROME 07/01/2011 ALFRED ZHU APRNRICIA R 695.3 ROSACEA 07/01/2011 AUDRA DIAZ RAHUL R V77.1 DIABETES SCREENING 07/01/2011 BELTRAN [...] N 695.3 ROSACEA 07/01/2011 GRAHAM ESTRELLA, CHRIS Steiner [...] JULIET K 695.3 ROSACEA 07/01/2011 BELTRAN DO, JUILET K V77.1 DIABETES SCREENING 07/01/2011 BELTRAN DO, [...] STEVENSON MD 564.1 IRRITABLE BOWEL SYNDROME 07/01/2011 GRAHAM ESTRELLA, CHRIS N 695.3 ROSACEA 07/01/2011 GRAHAM ESTRELLA, CHRIS Steiner V77.1 DIABETES SCREENING 07/01/2011 CHRIS STEVENSON MD [...] DPM, KELLE V77.1 DIABETES SCREENING 07/01/2011 ZHU COST ESTIMATING MANAGER, RAHUL R 477.0 ALLERGIC RHINITIS DUE TO POLLEN 07/01/2011 ZHU COST ESTIMATING MANAGER, RAHUL R 564.1 IRRITABLE BOWEL SYNDROME 07/01/2011 ZHU COST ESTIMATING MANAGER, RAHUL R 695.3 ROSACEA 07/01/2011 ZHU COST ESTIMATING MANAGER, RAHUL R V77.1 DIABETES SCREENING 07/01/2011 BELTRAN DO, JULEIT K 477.0 ALLERGIC RHINITIS DUE TO POLLEN [...] N 695.3 ROSACEA 07/01/2011 GRAHAM ESTRELLA, CHRIS Steiner V77.1 DIABETES SCREENING 07/01/2011 CHRIS STEVENSON MD [...] STEVENSON MD V77.1 DIABETES SCREENING 07/01/2011 BELTRAN DOMARIBELA K 477.0 ALLERGIC RHINITIS DUE TO POLLEN 07/01/2011 BELTRAN DO JULIET K 564.1 IRRITABLE BOWEL SYNDROME 07/01/2011 [...] K 564.1 IRRITABLE BOWEL SYNDROME 07/01/2011 BELTRAN DOMARIBELA K 695.3 ROSACEA 07/01/2011 BELTRAN DO, JULIET [...] JULIET K V65.3 COUNSELING- OBESITY (DIET) 09/22/2011 LUCA ROBBINS, KELLE V65.3 COUNSELING- OBESITY (DIET) 09/22/2011 RAHUL ZHU APRN V65.3 COUNSELING- OBESITY (DIET) 09/22/2011 BELTRAN DO, JULIET K V65.3 COUNSELING- OBESITY (DIET) 09/22/2011 BELTRAN DO, JULIET K V65.3 COUNSELING- OBESITY (DIET) 09/22/2011 BELTRAN DO JULIET K V65.3 COUNSELING- OBESITY (DIET) 09/22/2011 BELTRAN DO, JULIET K V65.3 COUNSELING- OBESITY (DIET) 09/22/2011 BELTRAN DO, JULIET K V65.3 COUNSELING- OBESITY (DIET) 09/22/2011 MARIBEL BELTRAN DOA K V65.3 COUNSELING- OBESITY (DIET) 09/22/2011 CHRIS STEVENSON MD V65.3 COUNSELING- OBESITY (DIET) 09/22/2011 CHRIS STEVENSON MD V65.3 COUNSELING- OBESITY (DIET) 09/22/2011 JULIET BELTRAN DO V65.3 COUNSELING- OBESITY (DIET) 09/22/2011 MARIBEL BELTRAN [...] ZHU APRN 786.09 Respiratory Abnormality Other 11/13/2011 BELTRAN DO, JULIET K 786.09 Respiratory Abnormality Other 11/13/2011 786.09 Respiratory [...] DPM, KELLE 786.09 Respiratory Abnormality Other 11/13/2011 ZHU COST ESTIMATING MANAGER, RAHUL R 786.09 Respiratory Abnormality Other 11/13/2011 [...] STEVENSON MD 786.09 Respiratory Abnormality Other 11/13/2011 CHRIS STEVENSON MD 786.09 Respiratory Abnormality Other 11/13/2011 BELTRAN DO, JULIET K 786.09 Respiratory Abnormality Other 11/13/2011 BELTRAN DO, JULIET K 786.09 Respiratory Abnormality Other 11/13/2011 CHRIS STEVENSON MD 786.09 Respiratory Abnormality Other 11/13/2011 CHRIS STEVENSON [...] OF UNSPECIFIED SITES 01/14/2012 782.3 EDEMA 01/14/2012 WILLY COST ESTIMATING MANAGERWESTONA S 682.9 CELLULITIS AND ABSCESS OF UNSPECIFIED SITES 01/14/2012 WILLY ZAMORANWESTONA S 782.3 EDEMA 01/14/2012 682.9 Cellulitis And [...] ZHU APRNIA R 782.3 Edema 01/14/2012 BELTRAN MARIBEL WATTERSA K 682.9 Cellulitis And Abscess Of Unspecified Sites 01/14/2012 BELTRAN DO JULIET K 782.3 Edema 01/14/2012 682.9 Cellulitis And Abscess Of Unspecified Sites 01/14/2012 782.3 Edema 01/14/2012 SHANNON ZHU APRNIA R 682.9 Cellulitis And Abscess Of Unspecified Sites 01/14/2012 ALFRED ZHU APRNRICIA R 782.3 Edema 01/14/2012 BELTRAN DO JULIET [...] DO, JULIET K 782.3 Edema 01/14/2012 ZHU COST ESTIMATING MANAGER, RAHUL R 682.9 Cellulitis And Abscess Of Unspecified Sites 01/14/2012 ZHU COST ESTIMATING MANAGER, RAHUL R 782.3 Edema 01/14/2012 BELTRAN DO, [...] 01/14/2012 LUCA DPM, KELLE 782.3 Edema 01/14/2012 HZU COST ESTIMATING MANAGER, RAHUL R 682.9 Cellulitis And Abscess Of Unspecified Sites 01/14/2012 ZHU COST ESTIMATING MANAGER, RAHUL R 782.3 Edema 01/14/2012 BELTRAN DO, [...] GRAHAM ESTRELLA, CHRIS N 782.3 Edema 01/14/2012 JULIET BELTRAN DO 682.9 Cellulitis And Abscess Of Unspecified Sites 01/14/2012 JULIET BELTRAN DO 782.3 Edema 01/14/2012 CHRIS STEVENSON MD N [...] EXTREMITY 01/19/2012 V58.69 MEDICATION HIGH RISK 01/19/2012 SHANNON ZHU APRNIA R 453.40 DVT - LOWER EXTREMITY 01/19/2012 ALFRED ZHU APRNRICIA R V58.69 MEDICATION HIGH RISK 01/19/2012 BELTRAN DO, JULIET K 453.40 DVT - LOWER EXTREMITY 01/19/2012 BELTRAN DO, JULIET K V58.69 MEDICATION HIGH RISK 01/19/2012 453.40 DVT - LOWER EXTREMITY 01/19/2012 V58.69 MEDICATION HIGH RISK 01/19/2012 SHANNON ZHU APRNIA R 453.40 DVT - LOWER EXTREMITY 01/19/2012 SHANNON ZHU APRNIA R V58.69 MEDICATION HIGH RISK 01/19/2012 BELTRAN [...] JULIET K V58.69 MEDICATION HIGH RISK 01/19/2012 ALRFED ZHU APRNRICIA R 453.40 DVT - LOWER [...] V58.69 MEDICATION HIGH RISK 01/19/2012 BELTRAN DO, UJLIET K 453.40 DVT - LOWER EXTREMITY 01/19/2012 [...] CHRIS N V58.69 MEDICATION HIGH RISK 01/19/2012 CHRIS STEVENSON [...] KELLE V58.69 MEDICATION HIGH RISK 01/19/2012 ZHU COST ESTIMATING MANAGER, RAHUL R 453.40 DVT - LOWER EXTREMITY 01/19/2012 ZHU COST ESTIMATING MANAGER, RAHUL R V58.69 MEDICATION HIGH RISK 01/19/2012 [...] STEVENSON MD V58.69 MEDICATION HIGH RISK 01/19/2012 CHRIS STEVENSON MD 453.40 DVT - LOWER EXTREMITY 01/19/2012 GRAHAM ESTRELLA, CHRIS N V58.69 MEDICATION HIGH RISK 01/19/2012 BELTRAN DO JULIET K 453.40 DVT - LOWER EXTREMITY 01/19/2012 BELTRAN DO JULIET K V58.69 MEDICATION HIGH RISK 01/19/2012 BELTRAN DO, JULIET K 453.40 DVT - LOWER EXTREMITY 01/19/2012 BELTRAN DO JULIET K V58.69 MEDICATION HIGH RISK 01/19/2012 [...] MD N V58.69 MEDICATION HIGH RISK 01/19/2012 DEVIN WATTERS JULIET K 453.40 DVT - LOWER EXTREMITY 01/19/2012 BELTRAN DO JULIET K V58.69 MEDICATION HIGH RISK 04/20/2012 [...] SOFT TISSUE SWELLING (NON-JOINT) [SX] 04/20/2012 CHRIS STVEENSON MD 782.3 SOFT TISSUE SWELLING (NON-JOINT) [SX] [...] 782.3 SOFT TISSUE SWELLING (NON-JOINT) [SX] 04/20/2012 KELLE DIAZ DPM 782.3 SOFT TISSUE SWELLING (NON-JOINT) [SX] 04/20/2012 [...] SPECIFIED SITE 07/28/2012 799.02 HYPOXEMIA 07/28/2012 BELTRAN DO JULIET K 789.09 ABDOMINAL PAIN OTHER SPECIFIED SITE 07/28/2012 BELTRAN DO JULIET K 799.02 HYPOXEMIA 07/28/2012 RAHUL ZHU APRN R 789.09 ABDOMINAL PAIN OTHER SPECIFIED SITE 07/28/2012 RAHUL ZHU APRN R 799.02 HYPOXEMIA 07/28/2012 BELTRAN DO JULIET K 789.09 ABDOMINAL PAIN OTHER SPECIFIED SITE 07/28/2012 BELTRAN DOMARIBELA K 799.02 HYPOXEMIA 07/28/2012 BELTRAN DO JULIET K 789.09 ABDOMINAL PAIN OTHER SPECIFIED SITE 07/28/2012 BELTRAN DOMARIBELA K 799.02 HYPOXEMIA 07/28/2012 BELTRAN DO JULIET K 789.09 ABDOMINAL PAIN OTHER SPECIFIED SITE 07/28/2012 BELTRAN DO JULIET K 799.02 HYPOXEMIA 07/28/2012 BELTRAN DO JULIET K 789.09 ABDOMINAL PAIN OTHER SPECIFIED SITE 07/28/2012 BELTRAN DO JULIET K 799.02 HYPOXEMIA 07/28/2012 BELTRAN DO JULIET K 789.09 ABDOMINAL PAIN OTHER SPECIFIED SITE 07/28/2012 BELTRAN DO JULIET K 799.02 HYPOXEMIA 07/28/2012 BELTRAN DO JULIET K 789.09 ABDOMINAL PAIN OTHER SPECIFIED SITE 07/28/2012 BELTRAN DO JULIET K 799.02 HYPOXEMIA 07/28/2012 CHRIS STEVENSON MD 789.09 ABDOMINAL PAIN OTHER SPECIFIED SITE 07/28/2012 CHRIS STEVENSON MD 799.02 HYPOXEMIA 07/28/2012 BELTRAN DO JULIET K 789.09 ABDOMINAL PAIN OTHER SPECIFIED SITE 07/28/2012 BELTRAN DO JULIET K 799.02 HYPOXEMIA 07/28/2012 BELTRAN DO JULIET K 789.09 ABDOMINAL PAIN OTHER SPECIFIED SITE 07/28/2012 BELTRAN DO JULIET K 799.02 HYPOXEMIA 07/28/2012 BELTRAN DO JULIET K 789.09 ABDOMINAL PAIN OTHER SPECIFIED [...] BELTRAN DO, JULIET K 799.02 HYPOXEMIA 07/28/2012 CHIRS STEVENSON MD 789.09 ABDOMINAL PAIN OTHER SPECIFIED SITE 07/28/2012 CHRIS STEVENSON MD 799.02 HYPOXEMIA 07/28/2012 BELRTAN DO, JULIET K 789.09 ABDOMINAL PAIN OTHER [...] BELTRAN DO, JULIET K 799.02 HYPOXEMIA 07/28/2012 GRAHAM ESTRELLA, CHRIS Steiner 789.09 ABDOMINAL PAIN OTHER SPECIFIED SITE 07/28/2012 GRAHAM ESTRELLA, CHRIS N 799.02 HYPOXEMIA 07/28/2012 CHRIS STEVENSON MD 789.09 ABDOMINAL PAIN OTHER SPECIFIED SITE 07/28/2012 GRAHAM ESTRELLA, CHRIS N 799.02 HYPOXEMIA 07/28/2012 BELTRAN DO, JULIET K 789.09 ABDOMINAL PAIN OTHER SPECIFIED SITE 07/28/2012 BELTRAN DO, JULIET K 799.02 HYPOXEMIA 07/28/2012 BELTRAN DO, JULIET K 789.09 ABDOMINAL PAIN OTHER SPECIFIED SITE 07/28/2012 BELTRAN DO, JLUIET K 799.02 HYPOXEMIA 07/28/2012 BELTRAN DO, JULIET [...] JULIET K 729.5 PAIN IN LIMB 09/27/2012 ZHU COST ESTIMATING MANAGER RAHUL R 496 COPD 09/27/2012 ZHU COST ESTIMATING MANAGER, RAHUL R 729.5 PAIN IN LIMB 09/27/2012 [...] KELLE 729.5 PAIN IN LIMB 09/27/2012 ZHU COST ESTIMATING MANAGER, RAHUL R 496 COPD 09/27/2012 ZHU COST ESTIMATING MANAGER, RAHUL R 729.5 PAIN IN LIMB 09/27/2012 [...] K V03.82 PPV23 (PNEUMOVAX) DX 12/06/2012 LUCA ROBBINS, KELLE V03.82 PPV23 (PNEUMOVAX) DX 12/06/2012 AUDRA ZAMORANRAHUL R V03.82 PPV23 (PNEUMOVAX) DX 12/06/2012 BELTRAN DO, JULIET K V03.82 PPV23 (PNEUMOVAX) DX 12/06/2012 BELTRAN DO, JULIET K V03.82 PPV23 (PNEUMOVAX) DX 12/06/2012 BELTRAN DO, JULIET K V03.82 PPV23 (PNEUMOVAX) DX 12/06/2012 BELTRAN DO, JULIET K V03.82 PPV23 (PNEUMOVAX) DX 12/06/2012 BELTRAN DO, JULIET K V03.82 PPV23 (PNEUMOVAX) DX 12/06/2012 BELTRAN DO, JULIET K V03.82 PPV23 (PNEUMOVAX) DX 12/06/2012 CHRIS STVEENSON MD V03.82 PPV23 (PNEUMOVAX) DX 12/06/2012 CHRIS [...] GRAHAM ESTRELLA, CHRIS N 786.2 COUGH 12/23/2012 GRAHAM ESTRELLA, CHRIS N 786.2 COUGH 12/23/2012 BELTRAN DO, JULIET K 786.2 COUGH 12/23/2012 BELTRAN DO, JULIET K 786.2 COUGH 12/23/2012 BELTRAN DO, JULIET K 786.2 COUGH 12/23/2012 BELTRAN DO, JULIET K 786.2 COUGH 12/23/2012 BELTRAN DO, JULIET K 786.2 COUGH 12/23/2012 BELTRAN DO, JULIET K 786.2 COUGH 12/23/2012 LUCA DPM, KELLE 786.2 COUGH 12/23/2012 AUDRA COST ESTIMATING MANAGER, RAHUL R 786.2 COUGH 12/23/2012 BELTRAN DO, JULIET K 786.2 COUGH 12/23/2012 BELTRAN DO, JULIET K 786.2 COUGH 12/23/2012 BELTRAN DO, JULIET K 786.2 COUGH 12/23/2012 BELTRAN DO, JULIET K 786.2 COUGH 12/23/2012 BELTRAN DO, JULIET K 786.2 COUGH 12/23/2012 BELTRAN DO, JULIET K 786.2 COUGH 12/23/2012 GRAHAM ESTRELLA, CHRIS N 786.2 COUGH 12/23/2012 GRAHAM ESTRELLA, CHRIS [...] READING WITHOUT DIAGNOSIS OF HYPERTENSION 01/14/2013 LUCA DEVRIESMKELLE 796.2 ELEVATED BLOOD PRESSURE READING WITHOUT DIAGNOSIS OF HYPERTENSION 01/14/2013 RAHUL ZHU APRN R 796.2 ELEVATED BLOOD PRESSURE READING WITHOUT [...] BELTRAN DO, JULIET K 784.42 DYSPHONIA 01/24/2013 GRAHAM ESTRELLA, CHRIS N 780.99 OTHER GENERAL SYMPTOMS 01/24/2013 GRAHAM ESTRELLA, CHRIS N 784.42 DYSPHONIA 01/24/2013 GRAHAM ESTRELLA, CHRIS N 780.99 OTHER GENERAL SYMPTOMS 01/24/2013 GRAHAM ESTRELLA, CHRIS N 784.42 DYSPHONIA 01/24/2013 BELTRAN DO, JULIET [...] LUCA DPM, KELLE 784.42 DYSPHONIA 01/24/2013 ZHU COST ESTIMATING MANAGER, RAHUL R 780.99 OTHER GENERAL SYMPTOMS 01/24/2013 ZHU COST ESTIMATING MANAGER, RAHUL R 784.42 DYSPHONIA 01/24/2013 BELTRAN DO, [...] JULIET K 704.00 ALOPECIA UNSPECIFIED 04/06/2013 GRAHAM MD, CHRIS N 704.00 ALOPECIA UNSPECIFIED 04/06/2013 BELTRAN [...] DO, JULIET K 704.00 ALOPECIA UNSPECIFIED 04/06/2013 LUCA DPM, KELLE 704.00 ALOPECIA UNSPECIFIED 04/06/2013 AUDRA DIAZ RAHUL R 704.00 ALOPECIA UNSPECIFIED 04/06/2013 BELTRAN DO, JULIET K 704.00 ALOPECIA UNSPECIFIED 04/06/2013 BELTRAN DO, JULIET K 704.00 ALOPECIA UNSPECIFIED 04/06/2013 BELTRAN DO, JULIET K 704.00 ALOPECIA UNSPECIFIED 04/06/2013 BELTRAN DO, JULIET K 704.00 ALOPECIA UNSPECIFIED 04/06/2013 BELTRAN DO, JULIET K 704.00 ALOPECIA UNSPECIFIED 04/06/2013 BELTRAN DO, JULIET K 704.00 ALOPECIA UNSPECIFIED 04/06/2013 GRAHAM ESTRELLA, CHRIS N 704.00 ALOPECIA UNSPECIFIED 04/06/2013 CHRIS STEVENSON [...] K V72.83 OTHER SPECIFIED PRE-OPERATIVE EXAMINATION 04/19/2013 GRAHAM ESTRELLA, CHRIS N V72.83 OTHER SPECIFIED PRE-OPERATIVE EXAMINATION 04/19/2013 BELTRAN DO, JULIET K V72.83 OTHER SPECIFIED PRE-OPERATIVE EXAMINATION 04/19/2013 BELTRAN DO, JULIET K V72.83 OTHER SPECIFIED PRE-OPERATIVE EXAMINATION 04/19/2013 BELTRAN DO, JULIET K V72.83 OTHER SPECIFIED PRE-OPERATIVE EXAMINATION 04/19/2013 BELTRAN DO, JULIET K V72.83 OTHER SPECIFIED PRE-OPERATIVE EXAMINATION 04/19/2013 BELTRAN DO, JULEIT K V72.83 OTHER SPECIFIED PRE-OPERATIVE EXAMINATION 04/19/2013 [...] KELLE V72.83 OTHER SPECIFIED PRE-OPERATIVE EXAMINATION 04/19/2013 AUDRA DIAZ RAHUL R V72.83 OTHER SPECIFIED PRE-OPERATIVE EXAMINATION 04/19/2013 BELTRAN [...] BELTRAN DO, JULIET K 786.09 DYSPNEA 06/01/2013 BETLRAN DO, JULIET K 278.00 OBESITY 06/01/2013 BELTRAN [...] GRAHAM ESTRELLA, CHRIS Steiner 786.09 DYSPNEA 06/01/2013 BELTRAN DO, JULIET K [...] LUCA DPM, KELLE 786.09 DYSPNEA 06/01/2013 AUDRA COST ESTIMATING MANAGER, RAHUL R 278.00 OBESITY 06/01/2013 AUDRA COST ESTIMATING MANAGER, RAHUL R 786.09 DYSPNEA 06/01/2013 BELTRAN DO, [...] GRAHAM ESTRELLA, CHRIS Steiner 786.09 DYSPNEA 06/01/2013 BELTRAN DO, JULIET K 278.00 OBESITY 06/01/2013 BELTRAN DO, JULIET K 786.09 DYSPNEA 06/01/2013 GRAHAM ESTRELLA, CHRIS N 278.00 OBESITY 06/01/2013 CHRIS STEVENSON MD 786.09 DYSPNEA 06/01/2013 BELTRAN DO, JULIET K 278.00 OBESITY 06/01/2013 BELTRAN DO, JULIET K 786.09 DYSPNEA 06/10/2013 CHRIS STEVENSON MD 461.9 SINUSITIS ACUTE [...] DPM, KELLE 461.9 SINUSITIS ACUTE 06/10/2013 AUDRA COST ESTIMATING MANAGER, RAHUL R 461.9 SINUSITIS ACUTE 06/10/2013 BELTRAN DO, JULIET K 461.9 SINUSITIS ACUTE 06/10/2013 BELTRAN DO, JULIET K 461.9 SINUSITIS ACUTE 06/10/2013 BELTRAN DO, JULIET K 461.9 SINUSITIS ACUTE 06/10/2013 BELTRAN DO, JULIET K 461.9 SINUSITIS ACUTE 06/10/2013 BELRTAN DO, JULIET K 461.9 SINUSITIS ACUTE 06/10/2013 [...] LUCA DPM, KELLE V81.1 HYPERTENSION SCREENING 08/10/2013 AUDRA COST ESTIMATING MANAGER, RAHUL R V81.1 HYPERTENSION SCREENING 08/10/2013 BELTRAN DO, [...] K V45.86 BARIATRIC SURGERY STATUS 10/03/2013 GRAHAM ESTRELLA, CHRIS Steiner V45.86 BARIATRIC SURGERY STATUS 10/03/2013 BELTRAN DO, JULIET K V45.86 BARIATRIC SURGERY STATUS 10/03/2013 BELTRAN DO, JULIET K V45.86 BARIATRIC SURGERY STATUS 10/03/2013 BELTRAN DO, JULIET K V45.86 BARIATRIC SURGERY STATUS 10/03/2013 BELTRAN DO, JULIET K V45.86 BARIATRIC SURGERY STATUS 10/03/2013 BELTRAN DO, JULIET K V45.86 BARIATRIC SURGERY STATUS 10/03/2013 BELTRAN DO, JULIET K V45.86 BARIATRIC SURGERY STATUS 10/03/2013 GRAHAM ESTRELLA, CHRIS Steiner V45.86 BARIATRIC SURGERY STATUS 10/03/2013 GRAHAM ESTRELLA, CHRIS Steiner V45.86 BARIATRIC SURGERY STATUS 10/03/2013 BELTRAN DO, [...] K V45.86 BARIATRIC SURGERY STATUS 10/03/2013 GRAHAM ESTRELLA, CHRIS N V45.86 BARIATRIC SURGERY STATUS 10/03/2013 GRAHAM ESTRELLA, CHRIS Steiner V45.86 BARIATRIC SURGERY STATUS 10/03/2013 BELTRAN DO, JULIET K V45.86 BARIATRIC SURGERY STATUS 10/03/2013 BELTRAN DO, JULIET K V45.86 BARIATRIC SURGERY STATUS 10/03/2013 GRAHAM ESTRELLA, CHRIS Steiner V45.86 BARIATRIC SURGERY STATUS 10/03/2013 GRAHAM ESTRELLA, CHRIS Steiner V45.86 BARIATRIC SURGERY STATUS 10/03/2013 BELTRAN DO, [...] ESTRELLA, CHRIS N 724.5 BACKACHE UNSPECIFIED 10/17/2013 BELTRAN DO, [...] ESTRELLA, CHRIS N 724.5 BACKACHE UNSPECIFIED 10/17/2013 BELTRAN DO, UJLIET K 724.5 BACKACHE UNSPECIFIED 10/17/2013 BELTRAN DO, [...] CHRIS STEVENSON MD V81.1 HYPERTENSION SCREENING 11/07/2013 CHRIS STEVENSON MD V81.1 HYPERTENSION SCREENING 11/07/2013 BELTRAN DO, JULIET K V81.1 HYPERTENSION SCREENING 11/07/2013 BELTRAN DO, JULIET K V81.1 HYPERTENSION SCREENING 11/07/2013 BELTRAN DO, JULIET K V81.1 HYPERTENSION SCREENING 11/07/2013 BELTRAN DO, JULIET K V81.1 HYPERTENSION SCREENING 11/07/2013 BELTRAN DO, JULIET K V81.1 HYPERTENSION SCREENING 11/07/2013 BELTRAN DO, JULIET K V81.1 HYPERTENSION SCREENING 11/07/2013 LUCA DPM, KELLE V81.1 HYPERTENSION SCREENING 11/07/2013 AUDRA DIAZ RAHUL R V81.1 HYPERTENSION SCREENING 11/07/2013 BELTRAN DO, JULIET K V81.1 HYPERTENSION SCREENING 11/07/2013 BELTRAN DO, JULIET K V81.1 HYPERTENSION SCREENING 11/07/2013 BELTRAN DO, JULIET K V81.1 HYPERTENSION SCREENING 11/07/2013 BELTRAN DO, JULIET K V81.1 HYPERTENSION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 04/21/2017 NYA DE LA ROSA, DANDRE Can Ot 723.1 CERVICALGIA 04/21/2017 DANDRE MARSHALL Ot V57.1 PHYSICAL THERAPY NEC 04/21/2017 CISCO ESTRELLA, MURIEL Garsia Ot R13.10 DYSPHAGIA, UNSPECIFIED 04/21/2017 CISCO ESTRELLA, MURIEL Garsia Ot Z01.818 ENCOUNTER FOR OTHER PREPROCEDURAL EXAMIN 04/21/2017 BORIS ESTRELLA, FREDY Nguyen Ot N20.9 URINARY CALCULUS, UNSPECIFIED 04/21/2017 BORIS ESTRELLA, FREDY Nguyen Ot N20.0 CALCULUS OF KIDNEY 04/21/2017 BORIS ESTRELLA, FREDY Nguyen Ot Z01.818 ENCOUNTER FOR OTHER PREPROCEDURAL EXAMIN 04/21/2017 BORIS ESTRELLA, FREDY Nguyen Ot N20.0 CALCULUS OF KIDNEY 04/21/2017 BORIS ESTRELLA, FREDY Nguyen Ot Z01.818 ENCOUNTER FOR OTHER PREPROCEDURAL EXAMIN 04/21/2017 FREDY ESCALANTE MD Ot N20.0 CALCULUS OF KIDNEY 04/21/2017 BORIS ESTRELLA, FREDY Nguyen Ot N20.0 CALCULUS OF KIDNEY 04/21/2017 BORIS ESTRELLA, FREDY Nguyen Ot Z01.818 ENCOUNTER FOR OTHER PREPROCEDURAL EXAMIN 04/21/2017 BORIS ESTRELLA, FREDY Nguyen Ot N20.0 CALCULUS OF KIDNEY 04/21/2017 BORIS ESTRELLA, FREDY Nguyen Ot Z98.89 OTHER SPECIFIED POSTPROCEDURAL STATES 04/21/2017 BORIS ESTRELLA, FREDY Nguyen Ot N20.0 CALCULUS OF KIDNEY 04/21/2017 FREDY ESCALANTE MD Ot Z98.89 OTHER SPECIFIED POSTPROCEDURAL STATES 04/21/2017 JOSEPH SHAW APRN Ot M54.41 LUMBAGO WITH SCIATICA, RIGHT SIDE 04/21/2017 JOSEPH SHAW COST ESTIMATING MANAGER Ot M54.41 LUMBAGO WITH SCIATICA, RIGHT SIDE 04/21/2017 PARAS NAZARIO COST ESTIMATING MANAGER Ot J18.1 LOBAR PNEUMONIA, UNSPECIFIED ORGANISM 05/04/2017 GRAHAM ESTRELLA, HCRIS Steiner Ot R10.31 RIGHT LOWER QUADRANT PAIN 05/20/2017 Ot 719.46 JOINT PAIN-L /LEG 05/20/2017 Ot E000.8 OTHER EXTERNAL CAUSE STATUS 05/20/2017 Ot E849.0 ACCIDENT IN HOME 05/20/2017 Ot E888.9 FALL NOS 05/20/2017 Ot V58.61 ANTICOAGULANTS,LT,CURRENT USE 05/20/2017 Ot 729.81 SWELLING OF LIMB 05/20/2017 Ot 924.5 CONTUSION LEG NOS 05/20/2017 Ot E000.8 OTHER EXTERNAL CAUSE STATUS 05/20/2017 Ot E888.9 FALL NOS 05/20/2017 Ot V12.51 HX-VENOUS THROMBOSIS EMBOLISM 05/20/2017 Ot V58.61 ANTICOAGULANTS,LT,CURRENT USE 05/20/2017 KANDY TALLEY COST ESTIMATING MANAGER Ot 786.05 SHORTNESS OF BREATH 05/20/2017 SANTO ESTRELLA FACC, ALI FACP CCDS Ot 278.00 OBESITY, NOS 05/20/2017 SANTO ESTRELLA FACC, ALI FACP CCDS Ot 786.09 RESPIRATORY ABNORM NEC 05/20/2017 SANTO ESTRELLA FACC, ALI FACP CCDS Ot 278.00 OBESITY, NOS 05/20/2017 SANTO ESTRELLA FACC, ALI FACP CCDS Ot 786.09 RESPIRATORY ABNORM NEC 05/20/2017 SANTO ESTRELLA FACC, ALI FACP CCDS Ot V85.43 BODY MASS INDEX 50.0-59.9, ADULT 05/20/2017 CHRIS STEVENSON MD Ot 274.9 GOUT NOS 05/20/2017 CHRIS STEVENSON MD Ot 706.2 SEBACEOUS CYST 05/20/2017 SARITHA ESTRELLA, YASIR Milan Ot 211.3 BENIGN NEOPLASM LG BOWEL 05/20/2017 YASIR MELARA MD Ot 562.10 DIVERTICULOSIS COLON (W/O MENT OF HEMORR 05/20/2017 YASIR MELARA MD Ot 600.00 HYPERTROPHY (BENIGN) 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 05/20/2017 YASIR MELARA MD Ot V16.0 FAMILY HX-GI MALIGNANCY 05/20/2017 SARITHA ESTRELLA, YASIR Milan Ot V76.51 SCREEN MAL NEOP-COLON 05/20/2017 SARITHA ESTRELLA, YASIR Milan Ot V72.84 EXAM PRE-OPERATIVE NOS 05/20/2017 GRAHAM ESTRELLA, CHRIS Steiner Ot 331.9 CEREB DEGENERATION NOS 05/20/2017 GRAHAM ESTRELLA, CHRIS Steiner Ot 723.0 CERVICAL SPINAL STENOSIS 05/20/2017 NYA DE LA ROSA, DANDRE Can Ot 723.1 CERVICALGIA 05/20/2017 NYA DE LA ROSA, DANDRE Can Ot V57.1 PHYSICAL THERAPY NEC 05/20/2017 CISCO ESTRELLA, MURIEL Garsia Ot R13.10 DYSPHAGIA, UNSPECIFIED 05/20/2017 CISCO ESTRELLA, MURIEL Garsia Ot Z01.818 ENCOUNTER FOR OTHER PREPROCEDURAL EXAMIN 05/20/2017 BORIS ESTRELLA, FREDY Nguyen Ot N20.9 URINARY CALCULUS, UNSPECIFIED 05/20/2017 BORIS ESTRELLA, FREDY Nguyen Ot N20.0 CALCULUS OF KIDNEY 05/20/2017 BORIS ESTRELLA, FREDY Nguyen Ot Z01.818 ENCOUNTER FOR OTHER PREPROCEDURAL EXAMIN 05/20/2017 BORIS ESTRELLA, FREDY Nguyen Ot N20.0 CALCULUS OF KIDNEY 05/20/2017 BORIS ESTRELLA, FREDY Nguyen Ot Z01.818 ENCOUNTER FOR OTHER PREPROCEDURAL EXAMIN 05/20/2017 FREDY ESCALANTE MD Ot N20.0 CALCULUS OF KIDNEY 05/20/2017 BORIS ESTRELLA, FREDY A Ot N20.0 CALCULUS OF KIDNEY 05/20/2017 BORIS ESTRELLA, FREDY Nguyen Ot Z01.818 ENCOUNTER FOR OTHER PREPROCEDURAL EXAMIN 05/20/2017 FREDY ESCALANTE MD Ot N20.0 CALCULUS OF KIDNEY 05/20/2017 FREDY ESCALANTE MD Ot Z98.89 OTHER SPECIFIED POSTPROCEDURAL STATES 05/20/2017 FREDY ESCALANTE MD Ot N20.0 CALCULUS OF KIDNEY 05/20/2017 RFEDY ESCALANTE MD Ot Z98.89 OTHER SPECIFIED POSTPROCEDURAL STATES 05/20/2017 JOSEPH SHAW APRN Ot M54.41 LUMBAGO WITH SCIATICA, RIGHT SIDE 05/20/2017 SHAW, JOSEPH R COST ESTIMATING MANAGER Ot M54.41 LUMBAGO WITH SCIATICA, RIGHT SIDE 05/20/2017 PARAS NAZARIO COST ESTIMATING MANAGER Ot J18.1 LOBAR PNEUMONIA, UNSPECIFIED ORGANISM 05/20/2017 GRAHAM ESTRELLA, CHRIS Steiner Ot R10.31 RIGHT LOWER QUADRANT PAIN 06/10/2017 QUETA PITTMAN CONFERENCE DIRECTOR Ot M54.5 LOW BACK PAIN 06/11/2017 ZAINQUETA CAMACHO CONFERENCE DIRECTOR Ot M54.5 LOW BACK PAIN 06/11/2017 Ot 719.46 JOINT PAIN-L /LEG 06/11/2017 Ot E000.8 OTHER EXTERNAL CAUSE STATUS 06/11/2017 Ot E849.0 ACCIDENT IN HOME 06/11/2017 Ot E888.9 FALL NOS 06/11/2017 Ot V58.61 ANTICOAGULANTS,LT,CURRENT USE 06/11/2017 Ot 729.81 SWELLING OF LIMB 06/11/2017 Ot 924.5 CONTUSION LEG NOS 06/11/2017 Ot E000.8 OTHER EXTERNAL CAUSE STATUS 06/11/2017 Ot E888.9 FALL NOS 06/11/2017 Ot V12.51 HX-VENOUS THROMBOSIS EMBOLISM 06/11/2017 Ot V58.61 ANTICOAGULANTS,LT,CURRENT USE 06/11/2017 KANDY TALLEY COST ESTIMATING MANAGER Ot 786.05 SHORTNESS OF BREATH 06/11/2017 SANTO ESTRELLA FACC, ALI FACP CCDS Ot 278.00 OBESITY, NOS 06/11/2017 SANTO ESTRELLA FACC, ALI FACP CCDS Ot 786.09 RESPIRATORY ABNORM NEC 06/11/2017 SANTO ESTRELLA FACC, ALI FACP CCDS Ot 278.00 OBESITY, NOS 06/11/2017 SANTO ESTRELLA FACC, ALI FACP CCDS Ot 786.09 RESPIRATORY ABNORM NEC 06/11/2017 SANTO ESTRELLA FACC, ALI FACP CCDS Ot V85.43 BODY MASS INDEX 50.0-59.9, ADULT 06/11/2017 GRAHAM ESTRELLA, CHRIS Steiner Ot 274.9 GOUT NOS 06/11/2017 GRAHAM ESTRELLA, CHRIS Steiner Ot 706.2 SEBACEOUS CYST 06/11/2017 SARITHA ESTRELLA, YASIR Milan Ot 211.3 BENIGN NEOPLASM LG BOWEL 06/11/2017 SARITHA ESTRELLA, YASIR Milan Ot 562.10 DIVERTICULOSIS COLON (W/O MENT OF HEMORR 06/11/2017 SARITHA ESTRELLA, YASIR Milan Ot 600.00 HYPERTROPHY (BENIGN) 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 06/11/2017 SARITHA ESTRELLA, YASIR Milan Ot V16.0 FAMILY HX-GI MALIGNANCY 06/11/2017 SARITHA ESTRELLA, YASIR Milan Ot V76.51 SCREEN MAL NEOP-COLON 06/11/2017 YASIR MELARA MD Ot V72.84 EXAM PRE-OPERATIVE NOS 06/11/2017 GRAHAM ESTRELLA, CHRIS Steiner Ot 331.9 CEREB DEGENERATION NOS 06/11/2017 GRAHAM ESTRELLA, CHRIS Steiner Ot 723.0 CERVICAL SPINAL STENOSIS 06/11/2017 DANDRE MARSHALL Ot 723.1 CERVICALGIA 06/11/2017 DANDRE MARSHALL Ot V57.1 PHYSICAL THERAPY NEC 06/11/2017 CISCO ESTRELLA, MURIEL Garsia Ot R13.10 DYSPHAGIA, UNSPECIFIED 06/11/2017 CISCO ESTRELLA, MURIEL Garsia Ot Z01.818 ENCOUNTER FOR OTHER PREPROCEDURAL EXAMIN 06/11/2017 BORIS ESTRELLA, FREDY Nguyen Ot N20.9 URINARY CALCULUS, UNSPECIFIED 06/11/2017 FREDY ESCALANTE MD Ot N20.0 CALCULUS OF KIDNEY 06/11/2017 BORIS ESTRELLA, FREDY Nguyen Ot Z01.818 ENCOUNTER FOR OTHER PREPROCEDURAL EXAMIN 06/11/2017 BORIS ESTRELLA, FREDY Nguyen Ot N20.0 CALCULUS OF KIDNEY 06/11/2017 BORIS ESTRELLA, FREDY Nguyen Ot Z01.818 ENCOUNTER FOR OTHER PREPROCEDURAL EXAMIN 06/11/2017 FREDY ESCALANTE MD A Ot N20.0 CALCULUS OF KIDNEY 06/11/2017 FREDY ESCALANTE MD A Ot N20.0 CALCULUS OF KIDNEY 06/11/2017 FREDY ESCALANTE MD Ot Z01.818 ENCOUNTER FOR OTHER PREPROCEDURAL EXAMIN 06/11/2017 FREDY ESCALANTE MD Ot N20.0 CALCULUS OF KIDNEY 06/11/2017 FREDY ESCALANTE MD Ot Z98.89 OTHER SPECIFIED POSTPROCEDURAL STATES 06/11/2017 FREDY ESCALANTE MD Ot N20.0 CALCULUS OF KIDNEY 06/11/2017 FREDY ESCALANTE MD Ot Z98.89 OTHER SPECIFIED POSTPROCEDURAL STATES 06/11/2017 JOSEPH SHAW COST ESTIMATING MANAGER Ot M54.41 LUMBAGO WITH SCIATICA, RIGHT SIDE 06/11/2017 SHAWJOSEPH Wetzel COST ESTIMATING MANAGER Ot M54.41 LUMBAGO WITH SCIATICA, RIGHT SIDE 06/11/2017 PARAS NAZARIO COST ESTIMATING MANAGER Ot J18.1 LOBAR PNEUMONIA, UNSPECIFIED ORGANISM 06/11/2017 GRAHAM ESTRELLA, CHRIS Steiner Ot R10.31 RIGHT LOWER QUADRANT PAIN 06/11/2017 ZAINQUETA CAMACHO CONFERENCE DIRECTOR Ot M54.5 LOW BACK PAIN 06/18/2017 Ot 719.46 JOINT PAIN-L /LEG 06/18/2017 Ot E000.8 OTHER EXTERNAL CAUSE STATUS 06/18/2017 Ot E849.0 ACCIDENT IN HOME 06/18/2017 Ot E888.9 FALL NOS 06/18/2017 Ot V58.61 ANTICOAGULANTS,LT,CURRENT USE 06/18/2017 Ot 729.81 SWELLING OF LIMB 06/18/2017 Ot 924.5 CONTUSION LEG NOS 06/18/2017 Ot E000.8 OTHER EXTERNAL CAUSE STATUS 06/18/2017 Ot E888.9 FALL NOS 06/18/2017 Ot V12.51 HX-VENOUS THROMBOSIS EMBOLISM 06/18/2017 Ot V58.61 ANTICOAGULANTS,LT,CURRENT USE 06/18/2017 KANDY TALLEY COST ESTIMATING MANAGER Ot 786.05 SHORTNESS OF BREATH 06/18/2017 SANTO ESTRELLA FACC, ALI FACP CCDS Ot 278.00 OBESITY, NOS 06/18/2017 SANTO ESTRELLA FACC, ALI FACP CCDS Ot 786.09 RESPIRATORY ABNORM NEC 06/18/2017 SANTO ESTRELLA FACC, ALI FACP CCDS Ot 278.00 OBESITY, NOS 06/18/2017 SANTO ESTRELLA FACC, ALI FACP CCDS Ot 786.09 RESPIRATORY ABNORM NEC 06/18/2017 SANTO ESTRELLA FACC, ALI FACP CCDS Ot V85.43 BODY MASS INDEX 50.0-59.9, ADULT 06/18/2017 GRAHAM ESTRELLA, CHRIS Steiner Ot 274.9 GOUT NOS 06/18/2017 GRAHAM ESTRELLA, CHRIS Steiner Ot 706.2 SEBACEOUS CYST 06/18/2017 SARITHA ESTRELLA, YASIR Milan Ot 211.3 BENIGN NEOPLASM LG BOWEL 06/18/2017 YASIR MELARA MD Ot 562.10 DIVERTICULOSIS COLON (W/O MENT OF HEMORR 06/18/2017 YASIR MELARA MD Ot 600.00 HYPERTROPHY (BENIGN) 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 06/18/2017 YASIR MELARA MD Ot V16.0 FAMILY HX-GI MALIGNANCY 06/18/2017 YASIR MELARA MD Ot V76.51 SCREEN MAL NEOP-COLON 06/18/2017 YASIR MELARA MD Ot V72.84 EXAM PRE-OPERATIVE NOS 06/18/2017 GRAHAM ESTRELLA, CHRIS Steiner Ot 331.9 CEREB DEGENERATION NOS 06/18/2017 CHRIS STEVENSON MD Ot 723.0 CERVICAL SPINAL STENOSIS 06/18/2017 DANDRE MARSHALL Ot 723.1 CERVICALGIA 06/18/2017 DANDRE MARSHALL Ot V57.1 PHYSICAL THERAPY NEC 06/18/2017 CISCO ESTRELLA, MURIEL Garsia Ot R13.10 DYSPHAGIA, UNSPECIFIED 06/18/2017 CISCO ESTRELLA, MURIEL Garsia Ot Z01.818 ENCOUNTER FOR OTHER PREPROCEDURAL EXAMIN 06/18/2017 BORIS ESTRELLA, FREDY Nguyen Ot N20.9 URINARY CALCULUS, UNSPECIFIED 06/18/2017 BORIS ESTRELLA, FREDY Nguyen Ot N20.0 CALCULUS OF KIDNEY 06/18/2017 BORIS ESTRELLA, FREDY Nguyen Ot Z01.818 ENCOUNTER FOR OTHER PREPROCEDURAL EXAMIN 06/18/2017 FREDY ESCALANTE MD Ot N20.0 CALCULUS OF KIDNEY 06/18/2017 BORIS ESTRELLA, FREDY Nguyen Ot Z01.818 ENCOUNTER FOR OTHER PREPROCEDURAL EXAMIN 06/18/2017 FREDY ESCALANTE MD Ot N20.0 CALCULUS OF KIDNEY 06/18/2017 FREDY ESCALANTE MD Ot N20.0 CALCULUS OF KIDNEY 06/18/2017 FREDY ESCALANTE MD Ot Z01.818 ENCOUNTER FOR OTHER PREPROCEDURAL EXAMIN 06/18/2017 FREDY ESCALANTE MD Ot N20.0 CALCULUS OF KIDNEY 06/18/2017 FREDY ESCALANTE MD Ot Z98.89 OTHER SPECIFIED POSTPROCEDURAL STATES 06/18/2017 FREDY ESCALANTE MD Ot N20.0 CALCULUS OF KIDNEY 06/18/2017 CHRISTIANO ESCALANTE MDAS A Ot Z98.89 OTHER SPECIFIED POSTPROCEDURAL STATES 06/18/2017 JOSEPH SHAW COST ESTIMATING MANAGER Ot M54.41 LUMBAGO WITH SCIATICA, RIGHT SIDE 06/18/2017 JOSEPH SHAW COST ESTIMATING MANAGER Ot M54.41 LUMBAGO WITH SCIATICA, RIGHT SIDE 06/18/2017 PARAS NAZARIO COST ESTIMATING MANAGER Ot J18.1 LOBAR PNEUMONIA, UNSPECIFIED ORGANISM 06/18/2017 GRAHAM ESTRELLA, CHRIS Steiner Ot R10.31 RIGHT LOWER QUADRANT PAIN 06/18/2017 ZAINMARIE CAMACHOA CONFERENCE DIRECTOR Ot M54.5 LOW BACK PAIN 07/02/2017 Ot 719.46 JOINT PAIN-L /LEG 07/02/2017 Ot E000.8 OTHER EXTERNAL CAUSE STATUS 07/02/2017 Ot E849.0 ACCIDENT IN HOME 07/02/2017 Ot E888.9 FALL NOS 07/02/2017 Ot V58.61 ANTICOAGULANTS,LT,CURRENT USE 07/02/2017 Ot 729.81 SWELLING OF LIMB 07/02/2017 Ot 924.5 CONTUSION LEG NOS 07/02/2017 Ot E000.8 OTHER EXTERNAL CAUSE STATUS 07/02/2017 Ot E888.9 FALL NOS 07/02/2017 Ot V12.51 HX-VENOUS THROMBOSIS EMBOLISM 07/02/2017 Ot V58.61 ANTICOAGULANTS,LT,CURRENT USE 07/02/2017 KANDY TALLEY COST ESTIMATING MANAGER Ot 786.05 SHORTNESS OF BREATH 07/02/2017 SANTO ESTRELLA FACC, ALI FACP CCDS Ot 278.00 OBESITY, NOS 07/02/2017 SANTO ESTRELLA FACC, ALI FACP CCDS Ot 786.09 RESPIRATORY ABNORM NEC 07/02/2017 SANTO ESTRELLA FACC, ALI FACP CCDS Ot 278.00 OBESITY, NOS 07/02/2017 SANTO ESTRELLA FACC, ALI FACP CCDS Ot 786.09 RESPIRATORY ABNORM NEC 07/02/2017 SANTO ESTRELLA FACC, ALI FACP CCDS Ot V85.43 BODY MASS INDEX 50.0-59.9, ADULT 07/02/2017 CHRIS STEVENSON MD Ot 274.9 GOUT NOS 07/02/2017 CHRIS STEVENSON MD Ot 706.2 SEBACEOUS CYST 07/02/2017 SARITHA ESTRELLA, YASIR Milan Ot 211.3 BENIGN NEOPLASM LG BOWEL 07/02/2017 YASIR MELARA MD Ot 562.10 DIVERTICULOSIS COLON (W/O MENT OF HEMORR 07/02/2017 YASIR MELARA MD Ot 600.00 HYPERTROPHY (BENIGN) 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 07/02/2017 YASIR MELARA MD Ot V16.0 FAMILY HX-GI MALIGNANCY 07/02/2017 YASIR MELARA MD Ot V76.51 SCREEN MAL NEOP-COLON 07/02/2017 YASIR MELARA MD Ot V72.84 EXAM PRE-OPERATIVE NOS 07/02/2017 GRAHAM ESTRELLA, CHRIS Steiner Ot 331.9 CEREB DEGENERATION NOS 07/02/2017 CHRIS STEVENSON MD Ot 723.0 CERVICAL SPINAL STENOSIS 07/02/2017 DANDRE MARSHALL Ot 723.1 CERVICALGIA 07/02/2017 DANDRE MARSHALL Ot V57.1 PHYSICAL THERAPY NEC 07/02/2017 CISCO ESTRELLA, MURIEL Garsia Ot R13.10 DYSPHAGIA, UNSPECIFIED 07/02/2017 MURIEL PECK MD Ot Z01.818 ENCOUNTER FOR OTHER PREPROCEDURAL EXAMIN 07/02/2017 FREDY ESCALANTE MD Ot N20.9 URINARY CALCULUS, UNSPECIFIED 07/02/2017 FREDY ESCALANTE MD Ot N20.0 CALCULUS OF KIDNEY 07/02/2017 FREDY ESCALANTE MD Ot Z01.818 ENCOUNTER FOR OTHER PREPROCEDURAL EXAMIN 07/02/2017 FREDY ESCALANTE MD Ot N20.0 CALCULUS OF KIDNEY 07/02/2017 FREDY ESCALANTE MD Ot Z01.818 ENCOUNTER FOR OTHER PREPROCEDURAL EXAMIN 07/02/2017 FREDY ESCALANTE MD Ot N20.0 CALCULUS OF KIDNEY 07/02/2017 FREDY ESCALANTE MD Ot N20.0 CALCULUS OF KIDNEY 07/02/2017 FREDY ESCALANTE MD Ot Z01.818 ENCOUNTER FOR OTHER PREPROCEDURAL EXAMIN 07/02/2017 FREDY ESCALANTE MD Ot N20.0 CALCULUS OF KIDNEY 07/02/2017 FREDY ESCALANTE MD Ot Z98.89 OTHER SPECIFIED POSTPROCEDURAL STATES 07/02/2017 FREDY ESCALANTE MD Ot N20.0 CALCULUS OF KIDNEY 07/02/2017 BORIS ESTRELLA, FREDY Nguyen Ot Z98.89 OTHER SPECIFIED POSTPROCEDURAL STATES 07/02/2017 JOSEPH SHAW COST ESTIMATING MANAGER Ot M54.41 LUMBAGO WITH SCIATICA, RIGHT SIDE 07/02/2017 JOSEPH SHAW COST ESTIMATING MANAGER Ot M54.41 LUMBAGO WITH SCIATICA, RIGHT SIDE 07/02/2017 BOO NAZARIOBIE Noah COST ESTIMATING MANAGER Ot J18.1 LOBAR PNEUMONIA, UNSPECIFIED ORGANISM 07/02/2017 GRAHAM ESTRELLA, CHRIS Steiner Ot R10.31 RIGHT LOWER QUADRANT PAIN 07/02/2017 QUETA PITTMAN Ot M54.5 LOW BACK PAIN 07/22/2017 QUETA PITTMAN Ot M54.5 LOW BACK PAIN 01/15/2018 QUETA PITTMAN Ot M25.511 PAIN IN RIGHT SHOULDER Procedures Code Description [place] [address] ROUTINE VENIPUNCTURE 01/07/2012 J7613 ALBUTEROL UNIT DOSE FORM INHALED 01/07/2012 36062 CBC 01/07/2012 39493 CMP 01/07/2012 [id number] GFR CALC (RESULT ONLY) 01/07/2012 02394 TSH 01/08/2012 62668 BNP 01/08/2012 57632 US VENOUS THROMBOSIS IMAGING 01/15/2012 07671 INR (IN HOUSE) 01/19/2012 42897 INR (IN HOUSE) 01/26/2012 94630 INR (IN HOUSE) 02/03/2012 03951 INR (IN HOUSE) 02/05/2012 03434 INR (IN HOUSE) 02/27/2012 49776 INR (IN HOUSE) 03/17/2012 78205 OXIMETRY 03/18/2012 72832 INR (IN HOUSE) 03/24/2012 83283 INR (IN HOUSE) 04/01/2012 80758 ROUTINE VENIPUNCTURE 04/20/2012 27440 BNP 04/20/2012 73202 INR (IN HOUSE) 04/26/2012 33124 VENOUS DOPPLER UNILATERAL/ LIMITED 04/28/2012 17637 INR (IN HOUSE) 05/13/2012 10624 JOINT INJECTION- LARGE JOINT (SPECIFY MEDCIN DESCRIPTION) 06/07/2012 27434 XRAY CHEST 2 VIEW 09/03/2012 43364 OXIMETRY 09/03/2012 29166 ROUTINE VENIPUNCTURE 01/24/2013 Otolaryng Saige Wilkerson 01/24/2013 25811 CMP 01/24/2013 37206 LIPID PANEL 01/24/2013 8008264 GFR CALC (RESULT ONLY) 01/24/2013 77196 CBC 01/24/2013 76453 TSH 01/24/2013 BLOOD PRESSURE CHECK 03/31/2013 Cardiolog [place]ia [place] 04/06/2013 22338 ROUTINE VENIPUNCTURE 04/19/2013 97396 EKG, TRACING (IN-HOUSE) 04/19/2013 99121 CBC 04/19/2013 [id number] GFR CALC (RESULT ONLY) 04/19/2013 21671 CMP 04/19/2013 91171 LIPID PANEL 04/19/2013 46981 MAGNESIUM 04/19/2013 63291 A1C (RML) 04/21/2013 35367 OXIMETRY 06/01/2013 56514 ECHO 2D 06/23/2013 58089 NUCLEAR STRESS TESTING 06/27/2013 64114 OXIMETRY 07/19/20131999F BLOOD PRESSURE CHECK 08/11/2013 WEIGHT CHECK 08/11/2013 BLOOD PRESSURE CHECK 08/23/2013 WEIGHT CHECK 08/23/2013 BLOOD PRESSURE CHECK 08/29/2013 WEIGHT CHECK 08/29/2013 BLOOD PRESSURE CHECK 09/16/2013 BLOOD PRESSURE CHECK 09/18/2013 WEIGHT CHECK 09/18/2013 BLOOD PRESSURE CHECK 09/23/2013 WEIGHT CHECK 09/23/2013 BLOOD PRESSURE CHECK 09/30/2013 WEIGHT CHECK 09/30/2013 52662 JOINT INJECTION- LARGE JOINT (SPECIFY MEDCIN DESCRIPTION) 10/03/2013 01865 OXIMETRY - OVERNIGHT 10/03/2013 BLOOD PRESSURE CHECK 10/07/2013 WEIGHT CHECK 10/07/2013 BLOOD PRESSURE CHECK 10/14/2013 WEIGHT CHECK 10/14/2013 32413 ROUTINE VENIPUNCTURE 10/17/2013 71268 CMP 10/17/2013 78097 CBC 10/17/2013 02061 UA W/ CULTURE IF INDICATED 10/17/2013 BLOOD PRESSURE CHECK 10/21/2013 WEIGHT CHECK 10/21/2013 BLOOD PRESSURE CHECK 10/28/2013 WEIGHT CHECK 10/28/2013 WEIGHT CHECK 11/07/2013 BLOOD PRESSURE CHECK 11/07/2013 WEIGHT CHECK 11/11/2013 BLOOD PRESSURE CHECK 11/11/2013 BLOOD PRESSURE CHECK 11/18/2013 WEIGHT CHECK 11/18/2013 WEIGHT CHECK 11/25/2013 BLOOD PRESSURE CHECK 12/02/2013 WEIGHT CHECK 12/02/2013 BLOOD PRESSURE CHECK 12/09/2013 WEIGHT CHECK 12/09/2013 30422 US SOFT TISSUE (SPECIFY LOCATION) 12/13/2013 INTERNAL MELARA, YASIR 12/13/2013 Podiatry Kelle Diaz 12/16/2013 BLOOD PRESSURE CHECK 12/16/2013 WEIGHT CHECK 12/16/2013 BLOOD PRESSURE CHECK 12/24/2013 WEIGHT CHECK 12/24/2013 BLOOD PRESSURE CHECK 12/30/2013 WEIGHT CHECK 12/30/2013 BLOOD PRESSURE CHECK 01/06/2014 WEIGHT CHECK 01/06/2014 BLOOD PRESSURE CHECK 01/13/2014 WEIGHT CHECK 01/13/2014 BLOOD PRESSURE CHECK 01/20/2014 WEIGHT CHECK 01/20/2014 BLOOD PRESSURE CHECK 01/27/2014 WEIGHT CHECK 01/27/2014 92182 ASPIRATE/INJ GANGLION CYST 02/03/2014 BLOOD PRESSURE CHECK 02/10/2014 WEIGHT CHECK 02/10/2014 BLOOD PRESSURE CHECK 02/17/2014 WEIGHT CHECK 02/17/2014 BLOOD PRESSURE CHECK 02/24/2014 WEIGHT CHECK 02/24/2014 BLOOD PRESSURE CHECK 03/03/2014 WEIGHT CHECK 03/03/2014 BLOOD PRESSURE CHECK 03/10/2014 WEIGHT CHECK 03/10/2014 BLOOD PRESSURE CHECK 03/17/2014 WEIGHT CHECK 03/17/2014 42809 MRI BRAIN W/O & W/DYE 03/31/2014 09252 MRI SPINE (CERVICAL) W/O CONTRAST 03/31/2014 BLOOD PRESSURE CHECK 05/26/2014 WEIGHT CHECK 05/26/2014 BLOOD PRESSURE CHECK 06/02/2014 WEIGHT CHECK 06/02/2014 86919 XRAY KNEE RIGHT 1 OR 2 VIEWS 06/14/2014 BLOOD PRESSURE CHECK 06/16/2014 WEIGHT CHECK 06/16/2014 89917 EKG, TRACING (IN-HOUSE) 06/20/2014 BLOOD PRESSURE CHECK 06/23/2014 WEIGHT CHECK 06/23/2014 [id number] REPLACE OF R KNEE JT WITH SYNTH SUB, BILL 07/18/2015 Results Test Result Range GGT - 04/04/16 09:08 GGT 10 IU/L 0-65 Written Authorization - 04/04/16 09:08 Written Authorization Comment CBC With Differential/Platelet - 04/04/16 09:08 WBC 5.5 x10E3/uL 3.4-10.8 RBC 5.06 x10E6/uL 4.14-5.80 Hemoglobin 16.4 g/dL 12.6-17.7 Hematocrit 48.0 % 37.5-51.0 MCV 95 fL 79-97 MCH 32.4 pg 26.6-33.0 MCHC 34.2 g/dL 31.5-35.7 RDW 13.0 % 12.3-15.4 Platelets 259 x10E3/uL 150-379 Neutrophils 72 % Lymphs 21 % Monocytes 4 % Eos 2 % Basos 1 % Neutrophils (Absolute) 4.0 x10E3/uL 1.4-7.0 Lymphs (Absolute) 1.2 x10E3/uL 0.7-3.1 Monocytes(Absolute) 0.2 x10E3/uL 0.1-0.9 Eos (Absolute) 0.1 x10E3/uL 0.0-0.4 Baso (Absolute) 0.0 x10E3/uL 0.0-0.2 Immature Granulocytes 0 % Immature Grans (Abs) 0.0 x10E3/uL 0.0-0.1 Comp. Metabolic Panel (14) - 04/04/16 09:08 Glucose, Serum 87 mg/dL 65-99 BUN 17 mg/dL 8-27 Creatinine, Serum 1.11 mg/dL 0.76-1.27 eGFR If NonAfricn Am 69 mL/min/1.73 >59 eGFR If Africn Am 80 mL/min/1.73 >59 BUN/Creatinine Ratio 15 10-22 Sodium, Serum 141 mmol/L 134-144 Potassium, Serum 4.3 mmol/L 3.5-5.2 Chloride, Serum 98 mmol/L 96-106 Carbon Dioxide, Total 23 mmol/L 18-29 Calcium, Serum 10.0 mg/dL 8.6-10.2 Protein, Total, Serum 7.4 g/dL 6.0-8.5 Albumin, Serum 4.4 g/dL 3.6-4.8 Globulin, Total 3.0 g/dL 1.5-4.5 A/G Ratio 1.5 1.1-2.5 Bilirubin, Total 0.5 mg/dL 0.0-1.2 Alkaline Phosphatase, S 125 IU/L 39-117 AST (SGOT) 17 IU/L 0-40 ALT (SGPT) 13 IU/L 0-44 Lipid Panel - 04/04/16 09:08 Cholesterol, Total 168 mg/dL 100-199 Triglycerides 88 mg/dL 0-149 HDL Cholesterol 51 mg/dL >39 VLDL Cholesterol [place] 18 mg/dL 5-40 LDL Cholesterol Calc 99 mg/dL 0-99 HSV 1 and 2-Specific Ab, IgG - 04/04/16 09:08 HSV 1 IgG, Type Spec <0.91 index 0.00-0.90 HSV 2 IgG, Type Spec 11.10 index 0.00-0.90 Vitamin B1 (Thiamine), Blood - 04/04/16 09:08 Vit. B1, Whole Blood 267.2 nmol/L 66.5-200.0 HCV Antibody - 04/04/16 09:08 Hep C Virus Ab <0.1 s/co ratio 0.0-0.9 Prostate-Specific Ag, Serum - 04/04/16 09:08 Prostate Specific Ag, Serum 1.4 ng/mL 0.0-4.0 Vitamin B12 - 04/04/16 09:08 Vitamin B12 1020 pg/mL 211-946 Complete blood count (CBC) with automated white [...] of estimated glomerular filtration rate > NRG PDM - PAIN MGMT (PROFILE 3 WITH CONFIRMATION) - 07/09/17 10:26 Prescribed Drug 1 Endocet(TM) NRG Creatinine 131.3 mg/dL > or=20.0 pH 6.47 4.5 - 9.0 Oxidant NEGATIVE mcg/mL <200 Amphetamines NEGATIVE ng/mL <500 medMATCH Amphetamines CONSISTENT NRG Benzodiazepines POSITIVE ng/mL <100 Marijuana Metabolite NEGATIVE ng/mL <20 medMATCH Marijuana Metab CONSISTENT NRG Cocaine Metabolite NEGATIVE ng/mL <150 medMATCH Cocaine Metab CONSISTENT NRG Opiates NEGATIVE ng/mL <100 medMATCH Opiates CONSISTENT NRG Oxycodone POSITIVE ng/mL <100 COMMENT NRG Alphahydroxyalprazolam NEGATIVE ng/mL <25 medMATCH aOH alprazolam CONSISTENT NRG Alphahydroxymidazolam NEGATIVE ng/mL <50 medMATCH aOH midazolam CONSISTENT NRG Alphahydroxytriazolam NEGATIVE ng/mL <50 medMATCH aOH triazolam CONSISTENT NRG Aminoclonazepam 239 ng/mL <25 medMATCH Aminoclonazepam CONSISTENT NRG Hydroxyethylflurazepam NEGATIVE ng/mL <50 medMATCH OH,Et flurazepam CONSISTENT NRG Lorazepam NEGATIVE ng/mL <50 medMATCH Lorazepam CONSISTENT NRG Nordiazepam NEGATIVE ng/mL <50 medMATCH Nordiazepam CONSISTENT NRG Oxazepam NEGATIVE ng/mL <50 medMATCH Oxazepam CONSISTENT NRG Temazepam NEGATIVE ng/mL <50 medMATCH Temazepam CONSISTENT NRG Prescribed Drug 2 Clonazepam NRG Noroxycodone 823 ng/mL <50 medMATCH Noroxycodone CONSISTENT NRG Oxycodone 381 ng/mL <50 medMATCH Oxycodone CONSISTENT NRG Oxymorphone 285 ng/mL <50 medMATCH Oxymorphone CONSISTENT NRG Encounters ACCT No. Visit Date/Time Discharge Status Pt. Type Provider Facility Loc./Unit Complaint [id number] 06/23/2014 14:01:00 06/23/2014 23:59:59 CLS Outpatient JULIET BELTRAN DO [id number] 06/20/2014 14:18:00 06/20/2014 23:59:59 CLS Outpatient CHRIS STEVNESON MD [id number] 06/16/2014 10:12:00 06/16/2014 23:59:59 CLS Outpatient JULIET BELTRAN DO [id number] 06/14/2014 10:06:00 06/14/2014 23:59:59 CLS Outpatient CHRIS STEVENSON MD [id number] 06/07/2014 08:24:00 06/07/2014 23:59:59 CLS Outpatient CHRIS STEVENSON MD [id number] 06/02/2014 14:42:00 06/02/2014 23:59:59 CLS Outpatient BELTRAN DOJULIET [place]ie [id number] 05/26/2014 10:52:00 05/26/2014 23:59:59 CLS Outpatient BELTRAN DOMARIBELWendy Sommers [id number] 03/31/2014 08:42:00 03/31/2014 23:59:59 CLS Outpatient CHRIS STEVENSON MD [id number] 03/31/2014 08:42:00 03/31/2014 23:59:59 CLS Outpatient CHRIS STEVENSON MD [id number] 03/17/2014 10:48:00 03/17/2014 23:59:59 CLS Outpatient BELTRAN DO, JULIET Sommers [id number] 03/10/2014 11:24:00 03/10/2014 23:59:59 CLS Outpatient BELTRAN DO, JULIET K [id number] 03/03/2014 10:45:00 03/03/2014 23:59:59 CLS Outpatient BELTRAN DO, JULIET Sommers [id number] 02/24/2014 11:23:00 02/24/2014 23:59:59 CLS Outpatient BELTRAN DO, JULIET Sommers [id number] 02/17/2014 11:27:00 02/17/2014 23:59:59 CLS Outpatient BELTRAN DO, JULIET Sommers [id number] 02/10/2014 09:04:00 02/10/2014 23:59:59 CLS Outpatient BELTRAN DO, JULIET Sommers [id number] 02/03/2014 12:20:00 02/03/2014 23:59:59 CLS Outpatient RAHUL ZHU APRN [id number] 02/03/2014 08:02:00 02/03/2014 23:59:59 CLS Outpatient LUCA KELLE ROBBINS [id number] 01/27/2014 14:02:00 01/27/2014 23:59:59 CLS Outpatient EBLTRAN DO, JULIET Sommers [id number] 01/13/2014 10:49:00 01/13/2014 23:59:59 CLS Outpatient BELTRAN DO, JULIET Sommers [id number] 01/06/2014 11:05:00 01/06/2014 23:59:59 CLS Outpatient BELTRAN DO, JULIET Sommers [id number] 12/30/2013 11:08:00 12/30/2013 23:59:59 CLS Outpatient BELTRAN DOJULIET Tootie [id number] 12/26/2013 15:24:00 12/26/2013 23:59:59 CLS Outpatient BELTRAN DO, JULIET Tootie [id number] 12/24/2013 09:29:00 12/24/2013 23:59:59 CLS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
--- NOTE | 2018-02-26 20:54 | Diagnostic Imaging Report ---
INDICATION: No known injury, knee pain x 2 years. TECHNIQUE: Three views of the right knee CORRELATION STUDY: 07/18/2015. FINDINGS: Postop changes of a knee arthroplasty. Hardware intact. Alignment anatomic. There is also surgical changes with apparent resurfacing in the posterior patella. There is increasing bone densities along the superior and inferior pole of the patella. Soft tissue edema and joint effusion is suggested. IMPRESSION: 1. Postoperative changes of a right total arthroplasty. Negative for acute bony abnormality. 2. Increasing ossification along the superior and inferior pole of the patella. 3. Joint effusion with soft tissue edema is present. Dictated by: Dictated on workstation # [id number]
[2018-02-26 21:15] VITALS: BP 144/88
== END | disposition home or self-care (01) ==
LOC: EDUNIT# 18:37 → ER 18:39
DX: M25.561 Pain in right knee (principal); M54.41 Lumbago with sciatica, right side; G47.30 Sleep apnea, unspecified; E78.00 Pure hypercholesterolemia, unspecified; I10 Essential (primary) hypertension; K21.9 Gastro-esophageal reflux disease without esophagitis; F41.9 Anxiety disorder, unspecified; F32.9 Major depressive disorder, single episode, unspecified; M10.9 Gout, unspecified; J44.9 Chronic obstructive pulmonary disease, unspecified; Z88.0 Allergy status to penicillin; Z88.2 Allergy status to sulfonamides; Z79.52 Long term (current) use of systemic steroids; Z82.49 Family history of ischemic heart disease and other diseases of the circulatory system; Z79.51 Long term (current) use of inhaled steroids; Z86.718 Personal history of other venous thrombosis and embolism; Z87.442 Personal history of urinary calculi; Z80.0 Family history of malignant neoplasm of digestive organs; Z87.448 Personal history of other diseases of urinary system; Z87.19 Personal history of other diseases of the digestive system; Z86.010 Personal history of colon polyps; Z98.890 Other specified postprocedural states; Z98.84 Bariatric surgery status
CPT/HCPCS: 36415; 73562; 80053; 85025; 85652; 86141

== ENCOUNTER 2018-06-24 13:45 | Outpatient (RCR) | payer OTHER ==
[~2018-06-24 13:45] MED LIST changes: -KETOROLAC 30 MG/ML VIAL IM ONE; +METR-145 PO; -METR-197 PO; -methylPREDNISolone 40 MG/ML (DEPO MEDROL) VIAL IM ONE
== END 2018-08-09 15:32 | disposition home or self-care (01) ==
PROVIDERS: ATTEND Orthopaedic Surgery
DX: M75.121 Complete rotator cuff tear or rupture of right shoulder, not specified as traumatic (principal)

== ENCOUNTER 2018-08-23 16:49 | Emergency (ER) | payer MEDICARE, OTHER ==
[~2018-08-23] VITALS: Ht 177.8 cm; Wt 162.4 kg
--- OUTSIDE RECORDS SUMMARY | 2018-08-23 16:56 | XMS REPORT | Clinical Summary ---
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 If you d o not see the information that you expected, contact Release of Information in [facility] Unified Inbox Information Management department at [phone] for further assistan ce in locating additional records.[facility] Allergies Not on File Medications End Date Status Medication Sig Dispensed Refills Start Date Active diclofenac sodium DR Take 1 Tab by 60 Tab 1 (VOLTAREN) 75 mg mouth twice 6 tabletIndications: daily. 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
--- OUTSIDE RECORDS SUMMARY | 2018-08-23 16:57 | XMS REPORT ---
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 Name Role Phone Migration, Doctor Unavailable Unavailable PROBLEMS Type Condition ICD9-CM Code XVO98-XQ Code Onset Dates Condition Status SNOMED Code Problem Left ventricular diastolic dysfunction I51.9 Active 899542653 Problem Anxiety F41.9 Active 86617898 Problem Renal cyst, left N28.1 Active 58893753 Problem Age-related osteoporosis without current pathological fracture M81.0 Active 94881619 Problem Urge incontinence N39.41 Active 019755397 Problem Cervicalgia M54.2 Active 1052893692689 Problem Low back pain M54.5 Active 580364747 Problem 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 Active 91633491 Problem History of diverticulitis Z87.19 Active 327514586431714 Problem Pulmonary asbestosis J61 Active 87903685 Problem Essential hypertension I10 Active 11047844 Problem Nephrolithiasis N20.0 Active 33257451 Problem Esophageal stricture K22.2 Active 11735528 Problem Psoriasis L40.9 Active 7409087 Problem History of weight loss surgery Z98.84 Active 285390367 Problem Chronic gout, unspecified cause, unspecified site M1A.9XX0 Active 59545719 Problem Allergic rhinitis, unspecified allergic rhinitis type J30.9 Active 04192512 Problem Obstructive sleep apnea syndrome G47.33 Active 69606952 Problem Chronic prescription opiate use Z79.899 Active 310383590 Problem Moderate episode of recurrent major depressive disorder F33.1 Active 901126222 Problem Benign prostatic hyperplasia, presence of lower urinary tract symptoms unspecified, unspecified morphology N40.0 Active 573203214 Problem Neuropathy G62.9 Active 399552898 Problem Hyperlipidemia, unspecified E78.5 Active 85314621 Problem Bipolar disorder F31.9 Active 03131810 Problem Primary insomnia F51.01 Active 958639349 Problem Nocturnal hypoxia G47.34 Active 988832116 Problem Acute right-sided low back pain with right-sided sciatica M54.41 Active 330427147 Problem Erectile dysfunction due to diseases classified elsewhere N52.1 Active 679078383 Problem Hammertoe of left foot M20.42 Active 526573289 Problem Chronic obstructive pulmonary disease, unspecified COPD type J44.9 Active 28318553 ALLERGIES No Information ENCOUNTERS Encounter Location Date Diagnosis [facility] [address] [address] Jul, [facility] [place] [id number] [place] [address] Jul, [facility] [id number] [place] [address] June, [address] [address] June, Bipolar disorder F31.9 [facility] [id number] [place] [address] June, Bipolar disorder F31.9 [facility] [id number] [place] [address] June, Low back pain M54.5 [facility] [id number] [place] [address] May, Primary insomnia F51.01 [facility] [id number] [place] [address] May, Moderate episode of recurrent major depressive disorder F33.1 ; Morbid obesity E66.01 and Neuropathy G62.9 [facility] [id number] [place] [address] May, Onychomycosis B35.1 ; Neuropathy G62.9 and Closed nondisplaced fracture of metatarsal bone of left foot, unspecified metatarsal, initial encounter S92.302A [facility] [address] [place] [address] May, [facility] [address], [place] [address] Apr, Moderate episode of recurrent major depressive disorder F33.1 ; Morbid obesity E66.01 ; Hyperlipidemia, unspecified E78.5 ; Primary insomnia F51.01 and Low back pain M54.5 [facility] [place] [address] [address] Apr, Primary insomnia F51.01 [place] [place] [address] [address] Apr, Anxiety F41.9 [facility] [address] [address] Apr, Low back pain M54.5 [facility] [address] [address] Apr, Anxiety F41.9 [facility] [place] [address] [address] Mar, Moderate episode of recurrent major depressive disorder F33.1 ; BMI 50.0-59.9, adult Z68.43 ; Anxiety F41.9 and Chronic prescription opiate use Z79.899 [facility] [id number] [place] [address] Mar, Onychomycosis B35.1 ; Neuropathy G62.9 and Impaired circulation I99.9 [facility] [id number] [place] [address] Mar, Low back pain M54.5 [facility] [id number] [place] [address] Mar, Anxiety F41.9 [facility] [id number] [place] [address] Jan, BMI 50.0-59.9, adult Z68.43 ; Chronic obstructive pulmonary disease, unspecified COPD type J44.9 ; Low back pain M54.5 and Moderate episode of recurrent major depressive disorder F33.1 [facility] [address] [address] Jan, [facility] [id number] [place] [address] Jan, [facility] [address] [address] Dec, Anxiety F41.9 [facility] [address] [address] Dec, [facility] [address] [address] Dec, Anxiety F41.9 [facility] [address] [address] Dec, [facility] [address] [address] Dec, Encounter for immunization Z23 [facility] [address] [address] Dec, [facility] [address] [address] Dec, Hammertoe of left foot M20.42 ; Edema of left foot R60.0 and Onychomycosis B35.1 [facility] [id number] [place] [address] Nov, BMI 50.0-59.9, adult Z68.43 [facility] [id number] [place] [address] Nov, [facility] [id number] [place] [address] Nov, [facility] [address] [address] Nov, Anxiety F41.9 [facility] [id number] [place] [address] Oct, [facility] [address] [address] Oct, [facility] [id number] [place] [address] Oct, BMI 45.0-49.9, adult Z68.42 ; Essential hypertension I10 ; Hyperlipidemia, unspecified E78.5 ; Anxiety F41.9 ; Obstructive sleep apnea syndrome G47.33 ; Moderate episode of recurrent major depressive disorder F33.1 ; Left ventricular diastolic dysfunction I51.9 ; Acute pain of right shoulder M25.511 ; Pain of left foot M79.672 and Pain in right foot M79.671 [facility] [id number] [place] [address] Oct, Anxiety F41.9 [facility] [id number] [place] [address] Sep, Left foot pain M79.672 [facility] [id number] [place] [address] Sep, [facility] [id number] [place] [address] Sep, Anxiety F41.9 [facility] [id number] [place] [address] Sep, [facility] [id number] [place] [address] Aug, [facility] [id number] [place] [address] Aug, [facility] [id number] [place] [address] Aug, Anxiety F41.9 [facility] [id number] [place] [address] Aug, [facility] [id number] [place] [address] Jul, [facility] [address] [place] [address] Jul, Anxiety F41.9 [facility] [address] [address] June, Anxiety F41.9 [facility] [id number] [place] [address] June, [facility] [address] [address] June, Low back pain M54.5 ; Chronic prescription opiate use Z79.899 ; Candidal intertrigo B37.2 ; Urge incontinence N39.41 ; Essential hypertension I10 ; Moderate episode of recurrent major depressive disorder F33.1 ; Age-related osteoporosis without current pathological fracture M81.0 and BMI 45.0-49.9, adult Z68.42 [facility] [address] [address] June, [facility] [address] [address] May, Anxiety F41.9 [facility] [address] [address] May, [facility] [id number] [place] [address] May, [facility] [id number] [place] [address] Apr, Anxiety F41.9 [facility] [id number] [place] [address] Apr, [facility] [address] [address] 15 Apr, 2017 Low back pain M54.5 [facility] [id number] [place] [address] Apr, [facility] [address] [address] Apr, [facility] [id number] [place] [address] Apr, Anxiety F41.9 [facility] [address] [address] Apr, Right groin pain R10.31 [place] [address] [address] Mar, [facility] [address] [address] Mar, [place] [address] [address] Mar, Anxiety F41.9 [facility] [address] [address] Mar, Low back pain M54.5 [place] [address] [address] Mar, Right groin pain R10.31 ; Low back pain M54.5 and BMI 45.0-49.9, adult Z68.42 [place] [address] [address] Mar, [place] [place] [id number] [place] [address] Mar, [facility] [address] [address] Mar, [facility] [id number] [place] [address] Mar, [facility] [address] [address] Mar, Cough R05 ; Pneumonia of right lower lobe due to infectious organism J18.1 and Abnormal chest x-ray R93.8 [place] [address] [address] Mar, [facility] [id number] [place] [address] Mar, [facility] [id number] [place] [address] Jan, Anxiety F41.9 [facility] [id number] [place] [address] Jan, [facility] [id number] [place] [address] Jan, Moderate episode of recurrent major depressive disorder F33.1 [facility] [id number] [place] [address] Jan, Subacromial bursitis of right shoulder joint M75.51 ; Shortness of breath on exertion R06.02 and BMI 45.0-49.9, adult Z68.42 [facility] [id number] [place] [address] Dec, Anxiety F41.9 [facility] [id number] [place] [address] Dec, [facility] [id number] [place] [address] Dec, Low back pain M54.5 [facility] [id number] [place] [address] Oct, Low back pain M54.5 [facility] [id number] [place] [address] Sep, [facility] [id number] [place] [address] Sep, Erectile dysfunction due to diseases classified elsewhere N52.1 [facility] [id number] [place] [address] Sep, Erectile dysfunction due to diseases classified elsewhere N52.1 [facility] [id number] [place] [address] Sep, [facility] [address] [address] Sep, Erectile dysfunction due to diseases classified elsewhere N52.1 [facility] [id number] [place] [address] Sep, Low back pain M54.5 and Anxiety F41.9 [facility] [address] [address] Aug, Acute allergic rhinitis J30.9 [facility] [address] [address] Aug, [facility] [address] [address] Aug, Anxiety F41.9 [facility] [address] [address] Jul, Low back pain M54.5 ; Chronic prescription opiate use Z79.899 and Essential hypertension I10 [facility] [address] [address] Jul, Anxiety F41.9 and Low back pain M54.5 [facility] [id number] [place] [address] June, [facility] [address] [address] June, Anxiety F41.9 [facility] [id number] [place] [address] May, Low back pain M54.5 [facility] [id number] [place] [address] May, [facility] [id number] [place] [address] May, Anxiety F41.9 [facility] [id number] [place] [address] Apr, [facility] [id number] [place] [address] 24 Apr, 2016 Low back pain M54.5 [facility] [id number] [place] [address] Apr, Moderate episode of recurrent major depressive disorder F33.1 [facility] [id number] [place] [address] 06 Apr, 2016 Anxiety F41.9 [facility] [id number] [place] [address] 21 Apr, 2016 Low back pain M54.5 [facility] [id number] [place] [address] 15 Apr, 2016 Elevated alkaline phosphatase level R74.8 [facility] [id number] [place] [address] 10 Apr, 2016 Alkaline phosphatase elevation R74.8 [facility] [id number] [place] [address] 06 Apr, 2016 Anxiety F41.9 [facility] [id number] [place] [address] 03 Apr, 2016 Low back pain M54.5 [facility] [id number] [place] [address] Apr, History of weight loss surgery Z98.84 ; Encounter for hepatitis C screening test for low risk patient Z11.59 ; History of herpes genitalis Z86.19 ; Essential hypertension I10 ; Hyperlipidemia, unspecified E78.5 ; Exposure to STD Z20.2 and Benign prostatic hyperplasia, presence of lower urinary tract symptoms unspecified, unspecified morphology N40.0 [facility] [id number] [place] [address] Apr, [place] [address] [address] Mar, [facility] [id number] [place] [address] Mar, [facility] [id number] [place] [address] Mar, [facility] [place] [id number] [place] [address] Mar, Acute right-sided low back pain with right-sided sciatica M54.41 [facility] [id number] [place] [address] Mar, Low back pain M54.5 [facility] [id number] [place] [address] Mar, Muscle strain of chest wall, initial encounter S29.011A ; Muscle strain of right thigh, initial encounter S76.911A and Acute non-recurrent maxillary sinusitis J01.00 [facility] [place] [id number] [place] [address] Mar, Benign prostatic hyperplasia, presence of lower urinary tract symptoms unspecified, unspecified morphology N40.0 [facility] [place] [id number] [place] [address] Jan, Low back pain M54.5 [facility] [place] [address] [place] [address] Jan, Low back pain M54.5 ; Essential hypertension I10 ; Hyperlipidemia, unspecified E78.5 ; Anxiety F41.9 ; Moderate episode of recurrent major depressive disorder F33.1 ; Primary insomnia F51.01 ; Exposure to STD Z20.2 ; Encounter for hepatitis C screening test for low risk patient Z11.59 and History of herpes genitalis Z86.19 [facility] [place] [address] [place] [address] 17 Jan, 2016 [facility] [id number] [place] [address] Nov, [facility] [id number] [place] [address] Nov, Anxiety F41.9 ; Cervicalgia M54.2 ; Moderate episode of recurrent major depressive disorder F33.1 and Encounter for immunization Z23 [facility] [id number] [place] [address] Oct, [facility] [address] [address] Oct, [facility] [id number] [place] [address] Oct, [facility] [id number] [place] [address] Oct, [facility] [id number] [place] [address] Sep, [facility] [id number] [place] [address] Aug, Low back pain M54.5 ; Anxiety F41.9 ; Primary insomnia F51.01 and Chronic prescription opiate use Z79.899 [facility] [id number] [place] [address] Jul, [facility] [id number] [place] [address] Jul, [facility] [id number] [place] [address] Jul, [facility] [id number] [place] [address] Jul, [facility] [id number] [place] [address] Jul, [facility] [id number] [place] [address] June, [facility] [address] [place] [address] June, [facility] [id number] [place] [address] June, [facility] [id number] [place] [address] June, [facility] [id number] [place] [address] May, Preoperative cardiovascular examination Z01.810 [facility] [id number] [place] [address] May, [facility] [id number] [place] [address] Apr, [facility] [id number] [place] [address] Apr, Osteoarthritis of right knee M17.9 [facility] [id number] [place] [address] Apr, [facility] [id number] [place] [address] Apr, [facility] [id number] [place] [address] Apr, [facility] [id number] [address] Apr, [facility] [id number] [place] [address] Apr, History of excessive cerumen Z78.9 ; Obstructive sleep apnea syndrome G47.33 ; History of diverticulitis Z87.19 and Nephrolithiasis N20.0 [facility] [address] [address] Apr, [facility] [address] [place] [address] Apr, Abdominal pain R10.9 [place] [facility] [id number] [place] [address] 10 Apr, 2015 [facility] [id number] [place] [address] 04 Apr, 2015 Osteoarthritis of right knee M17.9 [facility] [id number] [place] [address] Mar, [facility] [address] [address] Mar, [facility] [id number] [place] [address] Mar, [facility] [id number] [place] [address] Mar, [facility] [id number] [place] [phone] Mar, Pyelonephritis N12 ; Left-sided thoracic back pain M54.6 ; Hematuria, unspecified R31.9 and Kidney stone N20.0 [place] [id number] [place] [address] Mar, History of weight loss surgery Z98.84 [place] [id number] [place] [address] Mar, History of weight loss surgery Z98.84 and Hyperlipidemia, unspecified E78.5 [place] [id number] [place] [address] Mar, Low back pain M54.5 ; Chronic prescription opiate use Z79.899 ; Hyperlipidemia, unspecified E78.5 ; Spasm of back muscles M62.830 and History of weight loss surgery Z98.84 [facility] [id number] [place] [address] Jan, [place] [id number] [place] [phone] Jan, [place] [id number] [address] Jan, [facility] [id number] [place] [id number] Dec, [facility] [id number] [place] [id number] Dec, [facility] [id number] [place] [phone] Dec, [facility] [id number] [place] [phone] Nov, [facility] [id number] [place] [phone] Nov, Obstructive sleep apnea syndrome G47.33 and Pharyngoesophageal dysphagia R13.14 [facility] [id number] [place] [phone] Nov, [facility] [id number] [place] [phone] Nov, [facility] [id number] [place] [phone] Nov, [facility] [id number] [place] [id number] 30 Oct, 2014 Dental examination V72.2 [facility] [id number] [place] [phone] Oct, [facility] [id number] [place] [phone] Oct, [facility] [id number] [place] [phone] Oct, [facility] [address] [id number] [place] [address] Oct, [facility] [id number] [place] [address] Oct, BPH (benign prostatic hyperplasia) 600.00 and Urinary frequency 788.41 [facility] [id number] [place] [address] Oct, [facility] [id number] [place] [address] Oct, [facility] [id number] [place] [address] Oct, [facility] [id number] [place] [address] Sep, Cerumen impaction 380.4 ; Cerumen debris on tympanic membrane 380.4 ; Psoriasis 696.1 and MICKY (secretory otitis media) 381.4 [facility] [id number] [place] [id number] Sep, Dental examination V72.2 [facility] [id number] [place] [address] Sep, Fatigue 780.79 ; Irritable bowel syndrome 564.1 ; Overweight 278.02 ; Poor sleep V69.4 ; Shaking spells 781.0 and Broken tooth 873.63 [facility] [id number] [place] [address] Sep, [facility] [id number] [place] [address] Sep, [facility] [id number] [place] [address] Aug, [facility] [id number] [place] [address] Jul, [facility] [id number] [place] [address] Jul, [facility] [id number] [place] [address] Jul, [facility] [id number] [place] [address] [place] [address] Jul, [facility] [address] [id number], [place] [address] June, Arthritis of knee, right 716.96 [facility] [address] [id number] [place] [address] June, [facility] [address] [id number] [address] June, Elevated blood pressure reading without diagnosis of hypertension 796.2 [facility] [address] [id number] [place] [address] June, [facility] [id number] [place] [address] June, [facility] [id number] [address] June, [facility] [id number] [address] June, [facility] [id number] [address] May, [facility] [address] [id number] [address] May, [facility] [address] [id number] [address] Apr, [facility] [address] [facility] [id number], [place] [address] Apr, [facility] [address] [facility] [id number] [place] [address] Apr, [facility] [address] [facility] [id number], [place] [address] Apr, [facility] [address] [facility] [id number], [place] [address] Apr, [facility] [address] [facility] [id number] [place] [address] 20 Apr, 2014 [facility] [place] [facility] [address] [id number] [place] [address] 13 Apr, 2014 [facility] [place] [facility] [address] [id number] [place] [address] 13 Apr, 2014 [facility] [place] [facility] [address] [facility] [id number] [place] [address] 06 Apr, 2014 [facility] [place] [facility] [address] [id number] [place] [address] 06 Apr, 2014 [facility] [place] [facility] [address] [id number] [place] [address] Apr, 2014 [facility] [place] [facility] [address] [facility] [id number] [place] [address] Apr, 2014 [facility] [place] [facility] [address] [facility] [id number] [place] [address] 24 Apr, 2014 [facility] [place] [facility] [address] [facility] [id number] [place] [address] 24 Apr, 2014 [facility] [place] [facility] [address] [facility] [id number] [place] [address] 23 Apr, 2014 [facility] [place] [facility] [address] [facility] [id number] [place] [address] 23 Apr, 2014 [facility] [place] [facility] [address] [facility] [id number] [place] [address] 20 Apr, 2014 [facility] [place] [facility] [address] [id number] [place] [address] 20 Apr, 2014 [facility] [place] [facility] [address] [id number] [place] [address] 18 Apr, 2014 [facility] [place] [facility] [address] [facility] [id number] [place] [address] 18 Apr, 2014 [facility] [place] [facility] [address] [facility] [id number] [place] [address] Apr, 2014 [facility] [place] [facility] [address] [id number] [place] [address] Apr, 2014 [facility] [place] [facility] [address] [facility] [id number] [place] [address] Apr, 2014 [facility] [place] [facility] [address] [facility] [id number] [place] [address] Apr, 2014 [facility] [place] [facility] [address] [facility] [id number] [place] [address] Apr, 2014 [facility] [place] [facility] [address] [facility] [id number] [place] [address] Apr, 2014 [facility] [place] [facility] [address] [facility] [id number] [place] [address] Apr, 2014 [facility] [place] [facility] [id number] [place] [address] Apr, 2014 [facility] [place] [facility] [address] [facility] [id number] [place] [address] Apr, 2014 [facility] [place] [facility] [address] [facility] [id number] [place] [address] Apr, 2014 [facility] [place] [facility] [address] [facility] [id number] [place] [address] Apr, 2014 [facility] [place] [facility] [address] [facility] [id number] [place] [address] Apr, 2014 [facility] [place] [facility] [address] [facility] [id number] [place] [address] Apr, 2014 [facility] [place] [facility] [address] [facility] [id number] [place] [address] Mar, [facility] [place] [facility] [address] [facility] [id number] [place] [address] Mar, [facility] [place] [facility] [address] [facility] [id number], [place] [address] Mar, [facility] [place] [facility] [address] [id number] [place] [address] Mar, [facility] [address] [id number] [place] [address] Mar, [facility] [address] [id number] [place] [address] Mar, [facility] [address] [id number] [place] [address] Mar, [facility] [address] [id number] [place] [address] Mar, [facility] [address] [id number] [place] [address] Mar, [facility] [address] [id number] [place] [address] Mar, [facility] [address] [id number] [place] [address] Jan, [facility] [address] [id number] [place] [address] Jan, [facility] [place] [facility] [address] [id number] [place] [address] Jan, [facility] [place] [facility] [address] [id number] [place] [address] Jan, [facility] [place] [facility] [address] [id number] [place] [address] Jan, [facility] [place] [facility] [address] [id number] [place] [address] Jan, [facility] [place] [facility] [address] [id number] [place] [address] Jan, [facility] [place] [facility] [address] [id number] [place] [address] Jan, [facility] [place] [facility] [address] [id number], [place] [address] Jan, [facility] [place] [facility] [address] [id number] [place] [address] Jan, [facility] [place] [facility] [address] [id number] [place] [address] Jan, [facility] [place] [facility] [address] [id number] [place] [address] Jan, [facility] [place] [facility] [address] [id number] [place] [address] Dec, [facility] [place] [facility] [address] [id number] [place] [address] Dec, [facility] [place] [facility] [address] [id number] [place] [address] Dec, [facility] [place] [facility] [address] [id number] [place] [address] Dec, [facility] [place] [facility] [address] [id number] [place] [address] Dec, [facility] [place] [facility] [address] [id number] [place] [address] Dec, [facility] [place] [facility] [address] [id number] [place] [address] Dec, [facility] [place] [facility] [address] [id number], [place] [address] Dec, [facility] [place] [facility] [address] [id number], [place] [address] Dec, [facility] [place] [facility] [address] [id number] [place] [address] Dec, [facility] [place] [facility] [address] [id number] [place] [address] Nov, [facility] [place] [facility] [address] [id number] [place] [address] Nov, [facility] [place] [facility] [address] [id number] [place] [address] Nov, 2013 [facility] [place] [facility] [address] [id number] [place] [address] Nov, [facility] [place] [facility] [address] [id number] [place] [address] Nov, 2013 [facility] [place] [facility] [address] [id number] [place] [address] Nov, [facility] [place] [facility] [address] [id number] [place] [address] Nov, [facility] [place] [facility] [address] [id number] [place] [address] Nov, [facility] [place] [facility] [address] [id number] [place] [address] Nov, [facility] [place] [facility] [address] [id number] [place] [address] Nov, [facility] [place] [facility] [address] [id number] [place] [address] Nov, [facility] [place] [facility] [address] [id number] [place] [address] 17 Nov, 2013 [facility] [place] [facility] [address] [id number] [place] [address] Nov, [facility] [place] [facility] [address] [id number] [place] [address] 14 Nov, 2013 [facility] [place] [facility] [address] [id number] [place] [address] 10 Nov, 2013 [facility] [place] [facility] [address] [id number] [place] [address] 10 Nov, 2013 [facility] [place] [facility] [address] [id number] [place] [address] 08 Nov, 2013 [facility] [place] [facility] [address] [id number] [place] [address] Nov, [facility] [place] [facility] [address] [id number] [place] [address] Nov, [facility] [place] [facility] [address] [id number] [place] [address] Nov, [facility] [place] [facility] [address] [id number] [place] [address] Oct, [facility] [place] [facility] [address] [id number] [place] [address] Oct, [facility] [place] [facility] [address] [id number] [place] [address] Oct, [facility] [place] [facility] [address] [id number] [place] [address] Oct, [facility] [place] [facility] [address] [id number] [place] [address] Oct, [facility] [place] [facility] [address] [id number] [place] [address] Oct, [facility] [place] [facility] [address] [id number] [place] [address] Oct, [facility] [place] [facility] [address] [id number] [place] [address] Oct, [facility] [place] [facility] [address] [id number] [place] [address] Oct, [facility] [place] [facility] [address] [id number] [place] [address] Oct, [facility] [place] [facility] [address] [id number] [place] [address] Sep, [facility] [place] [facility] [address] [id number] [place] [address] Sep, [facility] [place] [facility] [address] [id number] [place] [address] Sep, [facility] [place] [facility] [address] [id number] [place] [address] Sep, [facility] [place] [facility] [address] [id number] [place] [address] Sep, [facility] [place] [facility] [address] [id number] [place] [address] Sep, [facility] [place] [facility] [address] [id number] [place] [address] Sep, [facility] [place] [facility] [address] [id number] [place] [address] Sep, [facility] [place] [facility] [address] [id number] [place] [address] Sep, [facility] [place] [facility] [address] [id number] [place] [address] Sep, [facility] [place] [facility] [address] [id number] [place] [address] Sep, [facility] [place] [facility] [address] [id number] [place] [address] Sep, [facility] [place] [facility] [address] [id number] [place] [address] Sep, [facility] [place] [facility] [address] [id number] [place] [address] Sep, [facility] [place] [facility] [address] [id number] [place] [address] Sep, [facility] [place] [facility] [address] [id number] [place] [address] Sep, [facility] [place] [facility] [address] [id number] [place] [address] Sep, [facility] [place] [facility] [address] [id number] [place] [address] Sep, [facility] [place] [facility] [address] [id number] [place] [address] Sep, [facility] [place] [facility] [address] [id number] [facility] [place] [address] Sep, [facility] [place] [facility] [address] [id number] [facility] [place] [address] Sep, [facility] [place] [facility] [address] [id number] [place] [address] Sep, [facility] [place] [facility] [address] [id number] [place] [address] Sep, [facility] [place] [facility] [address] [id number] [place] [address] Sep, [facility] [place] [facility] [address] [id number] [place] [address] Sep, [facility] [place] [facility] [address] [id number] [place] [address] Aug, [facility] [place] [facility] [address] [id number] [place] [address] Aug, [facility] [place] [facility] [address] [id number] [place] [address] Aug, [facility] [place] [facility] [address] [id number] [place] [address] Aug, [facility] [place] [facility] [address] [id number] [place] [address] Aug, [facility] [place] [facility] [address] [id number] [place] [address] Aug, [facility] [place] [facility] [address] [id number] [place] [address] Aug, [facility] [place] [facility] [address] [id number] [place] [address] Aug, [facility] [place] [facility] [address] [id number] [place] [address] Aug, [facility] [place] [facility] [address] [id number] [place] [address] Aug, [facility] [place] [facility] [address] [id number] [place] [address] Aug, [facility] [place] [facility] [address] [id number] [place] [address] Aug, [facility] [place] [facility] [address] [id number] [place] [address] Aug, [facility] [place] [facility] [address] [id number] [place] [address] Jul, [facility] [place] [facility] [address] [id number] [place] [address] Jul, [facility] [place] [facility] [address] [id number] [place] [address] Jul, [facility] [place] [facility] [address] [id number] [place] [address] Jul, [facility] [place] [facility] [address] [id number] [place] [address] Jul, [facility] [place] [facility] [address] [id number] [place] [address] Jul, [facility] [place] [facility] [address] [id number] [place] [address] Jul, [facility] [place] [facility] [address] [id number] [place] [address] June, [facility] [place] [facility] [address] [id number], [place] [address] June, [facility] [place] [facility] [address] [id number] [place] [address] June, [facility] [place] [facility] [address] [id number] [place] [address] June, [facility] [place] [facility] [address] [id number] [place] [address] May, [facility] [place] [facility] [address] [id number] [place] [address] May, [facility] [place] [facility] [address] [id number] [place] [address] May, [facility] [place] [facility] [address] [id number] [place] [address] May, [facility] [place] [facility] [address] [id number] [place] [address] May, [facility] [place] [facility] [address] [id number] [place] [address] May, [facility] [place] [facility] [address] [id number] [place] [address] May, [facility] [place] [facility] [address] [id number] [place] [address] May, [facility] [place] [facility] [address] [facility] [id number] [place] [address] May, [facility] [place] [facility] [address] [facility] [id number] [place] [address] May, [facility] [place] [facility] [address] [id number] [place] [address] Apr, [facility] [place] [facility] [address] [facility] [id number] [place] [address] Apr, [facility] [place] [facility] [address] [id number] [place] [address] Apr, [facility] [place] [facility] [address] [facility] [id number] [place] [address] Apr, [facility] [place] [facility] [address] [id number] [place] [address] Apr, [facility] [place] [facility] [address] [facility] [id number] [place] [address] Apr, [facility] [place] [facility] [address] [facility] [id number] [place] [address] Apr, [facility] [address] [id number] [place] [address] Apr, [facility] [place] [facility] [address] [id number] [place] [address] Apr, [facility] [place] [facility] [address] [id number] [place] [address] Apr, [facility] [place] [facility] [address] [id number] [place] [address] Mar, [facility] [place] [facility] [address] [id number] [place] [address] Mar, [facility] [place] [facility] [address] [id number] [place] [address] Mar, [facility] [place] [facility] [address] [id number] [place] [address] Mar, [facility] [place] [facility] [address] [id number] [place] [address] Mar, [facility] [place] [facility] [address] [id number] [place] [address] Mar, [facility] [place] [facility] [address] [facility] [id number] [place] [address] Jan, [facility] [place] [facility] [address] [id number], [place] [address] Jan, [facility] [place] [facility] [address] [id number], [place] [address] Jan, [facility] [place] [facility] [address] [id number] [place] [address] Jan, [facility] [place] [facility] [address] [id number] [place] [address] Jan, [facility] [place] [facility] [address] [facility] [id number] [place] [address] Jan, [facility] [place] [facility] [address] [id number] [place] [address] Jan, [facility] [address] [id number] [place] [address] Jan, [facility] [place] [facility] [address] [id number] [place] [address] Jan, [facility] [address] [id number] [place] [address] Dec, [facility] [place] [facility] [address] [id number] [place] [address] Dec, [facility] [place] [facility] [address] [id number] [place] [address] Dec, [facility] [place] [facility] [address] [id number] [place] [address] Dec, [facility] [address] [facility] [id number] [place] [address] Dec, [facility] [place] [facility] [address] [id number] [place] [address] Dec, [facility] [place] [facility] [address] [facility] [id number] [place] [address] Dec, [facility] [place] [facility] [address] [facility] [id number] [place] [address] Dec, [facility] [place] [facility] [address] [id number] [place] [address] Dec, [facility] [place] [facility] [address] [id number], [place] [address] Dec, [facility] [place] [facility] [address] [id number] [place] [address] Dec, [facility] [place] [facility] [address] [facility] [id number] [place] [address] Nov, [facility] [place] [facility] [address] [id number], [place] [address] Nov, [facility] [place] [facility] [address] [id number] [place] [address] Nov, [facility] [address] [id number] [place] [address] Nov, [facility] [place] [facility] [address] [id number] [place] [address] Nov, [facility] [place] [facility] [address] [id number] [place] [address] Oct, [facility] [address] [id number] [place] [address] Oct, [facility] [place] [facility] [address] [id number] [place] [address] Sep, [facility] [address] [id number] [place] [address] Aug, [facility] [address] [id number] [place] [address] Aug, [facility] [address] [id number] [place] [address] Aug, [facility] [address] [id number] [place] [address] Aug, [facility] [address] [id number] [place] [address] Jul, [facility] [place] [facility] [address] [id number] [place] [address] Jul, [facility] [place] [address] [id number] [place] [address] June, [facility] [place] [facility] [address] [id number] [place] [address] June, [facility] [place] [facility] [address] [id number] [place] [address] June, [facility] [place] [facility] [address] [id number] [place] [address] 08 May, 2012 [facility] [address] [id number] [place] [address] May, [facility] [place] [facility] [address] [id number] [place] [address] May, [facility] [address] [facility] [id number] [place] [address] 18 Apr, 2012 [facility] [place] [facility] [address] [id number] [place] [address] 18 Apr, 2012 [facility] [address] [id number] [place] [address] 15 Apr, 2012 [facility] [address] [facility] [id number] [place] [address] 14 Apr, 2012 [facility] [address] [facility] [id number] [place] [address] Apr, [facility] [address] [facility] [id number] [place] [address] Apr, [facility] [address] [facility] [id number] [place] [address] Apr, [facility] [address] [facility] [id number] [place] [address] Apr, [facility] [address] [facility] [id number] [place] [address] Apr, [facility] [address] [facility] [id number], [place] [address] 20 Apr, 2012 [facility] [address] [facility] [id number] [place] [address] 19 Apr, 2012 [facility] [address] [facility] [id number] [place] [address] 07 Apr, 2012 [facility] [place] [facility] [address] [facility] [id number], [place] [address] 07 Apr, 2012 [facility] [place] [facility] [address] [id number] [place] [address] Mar, [facility] [address] [id number] [place] [address] Mar, [facility] [address] [id number] [place] [address] Mar, [facility] [address] [id number] [place] [address] Mar, [facility] [address] [id number] [place] [address] Mar, [facility] [address] [id number] [place] [address] Jan, [facility] [address] [id number] [place] [address] Jan, [facility] [address] [id number] [place] [address] Jan, [facility] [address] [id number] [place] [address] Jan, [facility] [address] [id number] [place] [address] 14 Jan, 2012 [facility] [address] [id number] [place] [address] Jan, [facility] [address] [id number] [place] [address] Jan, [facility] [address] [id number] [place] [address] Jan, [facility] [address] [id number] [place] [address] 06 Jan, 2012 [facility] [address] [id number] [place] [address] 06 Jan, 2012 [facility] [address] [id number] [place] [address] 04 Jan, 2012 [facility] [place] [facility] [address] [id number] [place] [address] Jan, [facility] [place] [facility] [address] [id number] [place] [address] 04 Jan, 2012 [facility] [place] [facility] [address] [id number] [place] [address] Jan, [facility] [place] [facility] [address] [id number] [place] [address] Dec, [facility] [place] [facility] [address] [id number] [place] [address] 26 Jan, 2012 [facility] [place] [facility] [address] [id number] [place] [address] Dec, [facility] [place] [facility] [address] [id number] [place] [address] Dec, [facility] [place] [facility] [address] [id number] [place] [address] 15 Jan, 2012 [facility] [place] [facility] [address] [id number] [place] [address] 15 Jan, 2012 [facility] [place] [facility] [address] [id number] [place] [address] 14 Jan, 2012 [facility] [place] [facility] [address] [id number], [place] [address] 14 Jan, 2012 [facility] [place] [facility] [address] [id number], [place] [address] 14 Jan, 2012 [facility] [place] [facility] [address] [id number] [place] [address] 14 Jan, 2012 [facility] [place] [facility] [address] [id number] [place] [address] 07 Jan, 2012 [facility] [place] [facility] [address] [id number] [place] [address] 07 Jan, 2012 [facility] [place] [facility] [address] [id number] [place] [address] 16 Dec, 2011 [facility] [address] [id number] [place] [address] 16 Dec, 2011 [facility] [place] [facility] [address] [id number] [place] [address] 13 Nov, 2011 [facility] [address] [id number] [place] [address] 13 Nov, 2011 [facility] [address] [id number] [place] [address] 13 Nov, 2011 [facility] [address] [id number] [place] [address] 12 Nov, 2011 [facility] [address] [id number] [place] [address] Sep, [facility] [address] [id number] [place] [address] Sep, [facility] [address] [id number] [place] [address] Aug, [facility] [address] [id number] [place] [address] Aug, [facility] [address] [id number] [place] [address] Aug, [facility] [address] [id number] [place] [address] Aug, [facility] [address] [id number] [place] [address] June, [facility] [place] [facility] [address] [id number] [place] [address] June, [facility] [place] [facility] [address] [id number] [place] [address] May, [facility] [address] [id number] [place] [address] Apr, [facility] [address] [id number] [place] [address] Apr, [facility] [place] [facility] [address] [id number] [place] [address] Apr, [facility] [address] [id number] [place] [address] Apr, [facility] [place] [facility] [address] [id number] [place] [address] Apr, [facility] [address] [id number] [place] [address] Apr, [facility] [address] [id number] [place] [address] Mar, [facility] [address] [id number] [place] [address] Mar, [facility] [address] [id number] [place] [address] Mar, [facility] [address] [id number] [place] [address] Jan, [facility] [address] [id number] [place] [address] Jan, [facility] [place] [facility] [address] [id number] [place] [address] Jan, [facility] [place] [facility] [address] [id number] [place] [address] Jan, [facility] [place] [facility] [address] [id number] [place] [address] Jan, [facility] [place] [facility] [address] [id number] [place] [address] Jan, [facility] [place] [facility] [address] [id number] [place] [address] Jan, [facility] [place] [facility] [address] [id number] [place] [address] Dec, [facility] [place] [facility] [address] [id number] [place] [address] Dec, [facility] [place] [facility] [address] [id number] [place] [address] Nov, [facility] [place] [facility] [address] [id number] [place] [address] Nov, [facility] [place] [facility] [address] [id number] [place] [address] Nov, [facility] [place] [facility] [address] [id number] [place] [address] Nov, [facility] [place] [facility] [address] [id number] [place] [address] Oct, [facility] [place] [facility] [address] [id number] [place] [address] Sep, [facility] [place] [facility] [address] [id number] [place] [address] Mar, [facility] [place] [facility] [address] [id number] [place] [address] Jan, [facility] [place] [facility] [address] [facility] [id number] [place] [address] Dec, [facility] [place] [facility] [address] [id number] [place] [address] Dec, [facility] [place] [facility] [address] [id number] [place] [address] Dec, [facility] [place] [facility] [address] [id number] [place] [address] Dec, [facility] [place] [facility] [address] [id number] [place] [address] Nov, [facility] [place] [facility] [address] [facility] [id number] [place] [address] 15 Nov, 2009 [facility] [place] [facility] [address] [id number] [place] [address] 14 Nov, 2009 [facility] [address] [id number] [place] [address] 14 Nov, 2009 [facility] [place] [facility] [address] [id number] [place] [address] 13 Oct, 2009 [facility] [place] [facility] [address] [id number] [place] [address] 17 Jul, 2009 [facility] [place] [facility] [address] [id number] [place] [address] 17 Jun, 2009 [facility] [place] [facility] [address] [id number] [place] [address] June, [facility] [address] [id number] [place] [address] 17 Apr, 2009 [facility] [address] [id number] [place] [address] Mar, [facility] [address] [id number] [place] [address] 24 Jan, 2009 [facility] [address] [id number] [place] [address] Jan, [facility] [place] [facility] [address] [id number] [place] [address] 27 Dec, 2008 [facility] [place] [facility] [address] [id number], [place] [address] 25 Dec, 2008 [facility] [place] [facility] [address] [id number] [place] [address] 13 Dec, 2008 [facility] [place] [facility] [address] [id number] [place] [address] 13 Dec, 2008 [facility] [place] [facility] [address] [id number] [place] [address] 30 Nov, 2008 [facility] [place] [facility] [address] [id number] [place] [address] Jul, [facility] [address] [facility] [id number] [place] [address] June, IMMUNIZATIONS No Known Immunizations SOCIAL HISTORY Never Assessed REASON FOR VISIT EMR-[facility] PLAN OF CARE VITAL SIGNS MEDICATIONS Unknown Medications RESULTS No Results PROCEDURES No Known procedures INSTRUCTIONS MEDICATIONS ADMINISTERED No Known Medications MEDICAL (GENERAL) HISTORY Type Description Date Medical History hypertension Medical History sleep apnea-did not tolerate CPAP Medical History oxygen dependent at [facility] Medical History colonic polyps [...] of unspecified deep vessels of lower extremity Medical History no hx seizures or head injuries Surgical History cholecystectomy Surgical History hammer toe Surgical History sinus surgery Surgical History umbilical hernia repair Surgical History tonsillectomy Surgical History hiatal hernia repair Surgical History colonoscopy (Kishan)-polyp x3 removed 2004 Surgical History colonoscopy (Eulalia)-normal 2005 Surgical History colonoscopy (Georges)-polyp removed 10/2009 Surgical History EGD (Su)-gastritis 10/2009 Surgical History left knee arthroscopy-torn meniscus (Reveal) 06/2009 Surgical History gastric sleeve 08/2013 Surgical History Colonoscopy- tubular adenoma x2 and hyperplastic polyp x 1- Dr. Holley 11/2013 Surgical History EGD - esophageal stricture with balloon dilation- Dr. Bashir 12/2014 Surgical History Kidney stones blasted 04/2015 Surgical History right knee replacement 07/2015 Surgical History rotator cuff 2019 Hospitalization History Hernia Surgery 09/27/2014 Hospitalization History gastric sleeve surgery 08/2013 Hospitalization History surgeries
--- OUTSIDE RECORDS SUMMARY | 2018-08-23 16:59 | XMS REPORT ---
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 Name Role Phone Migration, Doctor Unavailable Unavailable PROBLEMS Type Condition ICD9-CM Code BKK56-MP Code Onset Dates Condition Status SNOMED Code Problem Left ventricular diastolic dysfunction I51.9 Active 058247600 Problem Anxiety F41.9 Active 11978007 Problem Renal cyst, left N28.1 Active 08774210 Problem Age-related osteoporosis without current pathological fracture M81.0 Active 13807752 Problem Urge incontinence N39.41 Active 200730875 Problem Cervicalgia M54.2 Active 5400171928221 Problem Low back pain M54.5 Active 083949384 Problem 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 Active 34029532 Problem History of diverticulitis Z87.19 Active 258803846913599 Problem Pulmonary asbestosis J61 Active 50503399 Problem Essential hypertension I10 Active 50652962 Problem Nephrolithiasis N20.0 Active 49120850 Problem Esophageal stricture K22.2 Active 61353259 Problem Psoriasis L40.9 Active 4696957 Problem History of weight loss surgery Z98.84 Active 900872875 Problem Chronic gout, unspecified cause, unspecified site M1A.9XX0 Active 92926825 Problem Allergic rhinitis, unspecified allergic rhinitis type J30.9 Active 55528215 Problem Obstructive sleep apnea syndrome G47.33 Active 65694750 Problem Chronic prescription opiate use Z79.899 Active 670979644 Problem Moderate episode of recurrent major depressive disorder F33.1 Active 606885914 Problem Benign prostatic hyperplasia, presence of lower urinary tract symptoms unspecified, unspecified morphology N40.0 Active 982379980 Problem Neuropathy G62.9 Active 924626496 Problem Hyperlipidemia, unspecified E78.5 Active 63181143 Problem Bipolar disorder F31.9 Active 24425255 Problem Primary insomnia F51.01 Active 654622880 Problem Nocturnal hypoxia G47.34 Active 603290619 Problem Acute right-sided low back pain with right-sided sciatica M54.41 Active 062455471 Problem Erectile dysfunction due to diseases classified elsewhere N52.1 Active 970055010 Problem Hammertoe of left foot M20.42 Active 964334217 Problem Chronic obstructive pulmonary disease, unspecified COPD type J44.9 Active 01325210 ALLERGIES No Information ENCOUNTERS Encounter Location Date Diagnosis [facility] [address] [address] Jul, [place] [id number] [place] [address] Jul, [place] [id number] [place] [address] June, [address] [address] June, Bipolar disorder F31.9 [place] [id number] [place] [address] June, Bipolar disorder F31.9 [place] [id number] [place] [address] June, Low back pain M54.5 [place] [id number] [place] [address] May, Primary insomnia F51.01 [place] [id number] [place] [address] May, Moderate episode of recurrent major depressive disorder F33.1 ; Morbid obesity E66.01 and Neuropathy G62.9 [place] [id number] [place] [address] May, Onychomycosis B35.1 ; Neuropathy G62.9 and Closed nondisplaced fracture of metatarsal bone of left foot, unspecified metatarsal, initial encounter S92.302A [place] [address] [place] [address] May, [facility] [address] [address] Apr, Moderate episode of recurrent major depressive disorder F33.1 ; Morbid obesity E66.01 ; Hyperlipidemia, unspecified E78.5 ; Primary insomnia F51.01 and Low back pain M54.5 [place] [address] [address] Apr, Primary insomnia F51.01 [place] [address] [address] Apr, Anxiety F41.9 [place] [address] [address] Apr, Low back pain M54.5 [place] [address] [address] Apr, Anxiety F41.9 [place] [address] [address] Mar, Moderate episode of recurrent major depressive disorder F33.1 ; BMI 50.0-59.9, adult Z68.43 ; Anxiety F41.9 and Chronic prescription opiate use Z79.899 [place] [id number] [place] [address] Mar, Onychomycosis B35.1 ; Neuropathy G62.9 and Impaired circulation I99.9 [place] [id number] [place] [address] Mar, Low back pain M54.5 [place] [id number] [place] [address] Mar, Anxiety F41.9 [place] [id number] [place] [address] Jan, BMI 50.0-59.9, adult Z68.43 ; Chronic obstructive pulmonary disease, unspecified COPD type J44.9 ; Low back pain M54.5 and Moderate episode of recurrent major depressive disorder F33.1 [place] [address] [address] Jan, [facility] [id number] [place] [address] Jan, [facility] [address] [address] Dec, Anxiety F41.9 [facility] [address] [address] Dec, [facility] [address] [address] Dec, Anxiety F41.9 [facility] [address] [address] Dec, [facility] [address] [address] Dec, Encounter for immunization Z23 [facility] [address] [address] Dec, [facility] [address] [address] Dec, Hammertoe of left foot M20.42 ; Edema of left foot R60.0 and Onychomycosis B35.1 [facility] [id number] [place] [address] Nov, BMI 50.0-59.9, adult Z68.43 [facility] [id number] [place] [address] Nov, [facility] [id number] [place] [address] Nov, [facility] [address] [address] Nov, Anxiety F41.9 [facility] [id number] [place] [address] Oct, [facility] [address] [address] Oct, [facility] [id number] [place] [address] Oct, BMI 45.0-49.9, adult Z68.42 ; Essential hypertension I10 ; Hyperlipidemia, unspecified E78.5 ; Anxiety F41.9 ; Obstructive sleep apnea syndrome G47.33 ; Moderate episode of recurrent major depressive disorder F33.1 ; Left ventricular diastolic dysfunction I51.9 ; Acute pain of right shoulder M25.511 ; Pain of left foot M79.672 and Pain in right foot M79.671 [facility] [id number] [place] [address] Oct, Anxiety F41.9 [facility] [id number] [place] [address] Sep, Left foot pain M79.672 [facility] [id number] [place] [address] Sep, [facility] [id number] [place] [address] Sep, Anxiety F41.9 [facility] [id number] [place] [address] Sep, [facility] [id number] [place] [address] Aug, [facility] [id number] [place] [address] Aug, [facility] [id number] [place] [address] Aug, Anxiety F41.9 [facility] [id number] [place] [address] Aug, [facility] [id number] [place] [address] Jul, [facility] [address] [place] [address] Jul, Anxiety F41.9 [facility] [address] [address] June, Anxiety F41.9 [facility] [id number] [place] [address] June, [facility] [address] [address] June, Low back pain M54.5 ; Chronic prescription opiate use Z79.899 ; Candidal intertrigo B37.2 ; Urge incontinence N39.41 ; Essential hypertension I10 ; Moderate episode of recurrent major depressive disorder F33.1 ; Age-related osteoporosis without current pathological fracture M81.0 and BMI 45.0-49.9, adult Z68.42 [facility] [address] [address] June, [facility] [address] [address] May, Anxiety F41.9 [facility] [address] [address] May, [facility] [id number] [place] [address] May, [facility] [id number] [place] [address] Apr, Anxiety F41.9 [facility] [id number] [place] [address] Apr, [facility] [address] [address] 15 Apr, 2017 Low back pain M54.5 [facility] [id number] [place] [address] Apr, [facility] [address] [address] Apr, [facility] [id number] [place] [address] Apr, Anxiety F41.9 [facility] [address] [address] Apr, Right groin pain R10.31 [place] [address] [address] Mar, [facility] [address] [address] Mar, [place] [address] [address] Mar, Anxiety F41.9 [facility] [address] [address] Mar, Low back pain M54.5 [place] [address] [address] Mar, Right groin pain R10.31 ; Low back pain M54.5 and BMI 45.0-49.9, adult Z68.42 [place] [address] [address] Mar, [place] [id number] [place] [address] Mar, [facility] [address] [address] Mar, [facility] [id number] [place] [address] Mar, [facility] [address] [address] Mar, Cough R05 ; Pneumonia of right lower lobe due to infectious organism J18.1 and Abnormal chest x-ray R93.8 [place] [address] [address] Mar, [facility] [id number] [place] [address] Mar, [facility] [id number] [place] [address] Jan, Anxiety F41.9 [facility] [id number] [place] [address] Jan, [facility] [id number] [place] [address] Jan, Moderate episode of recurrent major depressive disorder F33.1 [facility] [id number] [place] [address] Jan, Subacromial bursitis of right shoulder joint M75.51 ; Shortness of breath on exertion R06.02 and BMI 45.0-49.9, adult Z68.42 [facility] [id number] [place] [address] Dec, Anxiety F41.9 [facility] [id number] [place] [address] Dec, [facility] [id number] [place] [address] Dec, Low back pain M54.5 [facility] [id number] [place] [address] Oct, Low back pain M54.5 [facility] [id number] [place] [address] Sep, [facility] [id number] [place] [address] Sep, Erectile dysfunction due to diseases classified elsewhere N52.1 [facility] [id number] [place] [address] Sep, Erectile dysfunction due to diseases classified elsewhere N52.1 [facility] [id number] [place] [address] Sep, [facility] [address] [address] Sep, Erectile dysfunction due to diseases classified elsewhere N52.1 [facility] [id number] [place] [address] Sep, Low back pain M54.5 and Anxiety F41.9 [facility] [address] [address] Aug, Acute allergic rhinitis J30.9 [facility] [address] [address] Aug, [facility] [address] [address] Aug, Anxiety F41.9 [facility] [address] [address] Jul, Low back pain M54.5 ; Chronic prescription opiate use Z79.899 and Essential hypertension I10 [facility] [address] [address] Jul, Anxiety F41.9 and Low back pain M54.5 [facility] [id number] [place] [address] June, [facility] [address] [address] June, Anxiety F41.9 [facility] [id number] [place] [address] May, Low back pain M54.5 [facility] [id number] [place] [address] May, [facility] [id number] [place] [address] May, Anxiety F41.9 [facility] [id number] [place] [address] Apr, [place] [id number] [place] [address] 24 Apr, 2016 Low back pain M54.5 [facility] [id number] [place] [address] Apr, Moderate episode of recurrent major depressive disorder F33.1 [place] [id number] [place] [address] 06 Apr, 2016 Anxiety F41.9 [place] [id number] [place] [address] 21 Apr, 2016 Low back pain M54.5 [place] [id number] [place] [address] 15 Apr, 2016 Elevated alkaline phosphatase level R74.8 [place] [id number] [place] [address] 10 Apr, 2016 Alkaline phosphatase elevation R74.8 [place] [id number] [place] [address] 06 Apr, 2016 Anxiety F41.9 [place] [id number] [place] [address] 03 Apr, 2016 Low back pain M54.5 [place] [id number] [place] [address] Apr, History of weight loss surgery Z98.84 ; Encounter for hepatitis C screening test for low risk patient Z11.59 ; History of herpes genitalis Z86.19 ; Essential hypertension I10 ; Hyperlipidemia, unspecified E78.5 ; Exposure to STD Z20.2 and Benign prostatic hyperplasia, presence of lower urinary tract symptoms unspecified, unspecified morphology N40.0 [place] [id number] [place] [address] Apr, [place] [address] [address] Mar, [facility] [address] [place] [address] Mar, [facility] [id number] [place] [address] Mar, [place] [id number] [place] [address] Mar, Acute right-sided low back pain with right-sided sciatica M54.41 [place] [id number] [place] [address] Mar, Low back pain M54.5 [facility] [id number] [place] [address] Mar, Muscle strain of chest wall, initial encounter S29.011A ; Muscle strain of right thigh, initial encounter S76.911A and Acute non-recurrent maxillary sinusitis J01.00 [place] [id number] [place] [address] Mar, Benign prostatic hyperplasia, presence of lower urinary tract symptoms unspecified, unspecified morphology N40.0 [place] [id number] [place] [address] Jan, Low back pain M54.5 [place] [address] [place] [address] Jan, Low back pain M54.5 ; Essential hypertension I10 ; Hyperlipidemia, unspecified E78.5 ; Anxiety F41.9 ; Moderate episode of recurrent major depressive disorder F33.1 ; Primary insomnia F51.01 ; Exposure to STD Z20.2 ; Encounter for hepatitis C screening test for low risk patient Z11.59 and History of herpes genitalis Z86.19 [place] [id number] [place] [address] 17 Jan, 2016 [facility] [id number] [place] [address] Nov, [facility] [id number] [place] [address] Nov, Anxiety F41.9 ; Cervicalgia M54.2 ; Moderate episode of recurrent major depressive disorder F33.1 and Encounter for immunization Z23 [facility] [id number] [place] [address] Oct, [facility] [address] [address] Oct, [facility] [id number] [place] [address] Oct, [facility] [id number] [place] [address] Oct, [facility] [id number] [place] [address] Sep, [facility] [id number] [place] [address] Aug, Low back pain M54.5 ; Anxiety F41.9 ; Primary insomnia F51.01 and Chronic prescription opiate use Z79.899 [facility] [id number] [place] [address] Jul, [facility] [id number] [place] [address] Jul, [facility] [id number] [place] [address] Jul, [facility] [id number] [place] [address] Jul, [facility] [id number] [place] [address] Jul, [facility] [id number] [place] [address] June, [facility] [address] [place] [address] June, [facility] [id number] [place] [address] June, [facility] [id number] [place] [address] June, [facility] [id number] [place] [address] May, Preoperative cardiovascular examination Z01.810 [facility] [id number] [place] [address] May, [facility] [id number] [place] [address] Apr, [facility] [id number] [place] [address] Apr, Osteoarthritis of right knee M17.9 [facility] [id number] [place] [address] Apr, [facility] [id number] [place] [address] Apr, [facility] [id number] [place] [address] Apr, [facility] [id number] [address] Apr, [facility] [id number] [place] [address] Apr, History of excessive cerumen Z78.9 ; Obstructive sleep apnea syndrome G47.33 ; History of diverticulitis Z87.19 and Nephrolithiasis N20.0 [facility] [id number] [address] Apr, [facility] [id number] [address] Apr, Abdominal pain R10.9 [facility] [id number] [place] [address] 10 Apr, 2015 [facility] [id number] [place] [address] 04 Apr, 2015 Osteoarthritis of right knee M17.9 [facility] [id number] [place] [address] Mar, [facility] [address] [address] Mar, [facility] [id number] [place] [address] Mar, [facility] [id number] [place] [address] Mar, [facility] [id number] [place] [address] Mar, Pyelonephritis N12 ; Left-sided thoracic back pain M54.6 ; Hematuria, unspecified R31.9 and Kidney stone N20.0 [facility] [id number] [place] [address] Mar, History of weight loss surgery Z98.84 [facility] [id number] [place] [address] Mar, History of weight loss surgery Z98.84 and Hyperlipidemia, unspecified E78.5 [facility] [id number] [place] [address] Mar, Low back pain M54.5 ; Chronic prescription opiate use Z79.899 ; Hyperlipidemia, unspecified E78.5 ; Spasm of back muscles M62.830 and History of weight loss surgery Z98.84 [facility] [id number] [place] [address] Jan, [facility] [id number] [place] [address] Jan, [facility] [place] [id number] [address] Jan, [facility] [id number] [place] [address] Dec, [facility] [id number] [place] [address] Dec, [facility] [address] [id number] [place] [address] Dec, [facility] [id number] [place] [address] Nov, [facility] [id number] [place] [address] Nov, Obstructive sleep apnea syndrome G47.33 and Pharyngoesophageal dysphagia R13.14 [facility] [id number] [place] [address] Nov, [facility] [id number] [place] [address] Nov, [facility] [id number] [place] [address] Nov, [facility] [place] [facility] [id number] [place] [id number] 30 Oct, 2014 Dental examination V72.2 [facility] [id number] [place] [address] Oct, [facility] [id number] [place] [address] Oct, [facility] [id number] [place] [address] Oct, [facility] [id number] [place] [address] Oct, [facility] [id number] [place] [address] Oct, BPH (benign prostatic hyperplasia) 600.00 and Urinary frequency 788.41 [facility] [id number] [place] [address] Oct, [facility] [id number] [place] [address] Oct, [facility] [id number] [place] [address] Oct, [facility] [id number] [place] [address] Sep, Cerumen impaction 380.4 ; Cerumen debris on tympanic membrane 380.4 ; Psoriasis 696.1 and MICKY (secretory otitis media) 381.4 [facility] [place] [facility] [id number] [place] [id number] Sep, Dental examination V72.2 [facility] [id number] [place] [address] Sep, Fatigue 780.79 ; Irritable bowel syndrome 564.1 ; Overweight 278.02 ; Poor sleep V69.4 ; Shaking spells 781.0 and Broken tooth 873.63 [facility] [id number] [place] [address] Sep, [facility] [id number] [place] [address] Sep, [facility] [id number] [place] [address] Aug, [facility] [id number] [place] [address] Jul, [facility] [id number] [place] [address] Jul, [facility] [id number] [place] [address] Jul, [facility] [id number] [place] [address] [place] [address] Jul, [facility] [address] [id number] [place] [address] June, Arthritis of knee, right 716.96 [facility] [address] [id number] [place] [address] June, [facility] [id number] [address] June, Elevated blood pressure reading without diagnosis of hypertension 796.2 [facility] [address] [id number] [place] [address] June, [facility] [id number] [place] [address] June, [facility] [id number] [address] June, [facility] [address] [address] June, [facility] [id number] [address] May, [facility] [id number] [address] May, [facility] [id number] [address] Apr, [facility] [address] [facility] [address] [facility] [id number] [place] [address] Apr, [facility] [address] [facility] [id number] [place] [address] Apr, [facility] [address] [facility] [id number] [place] [address] Apr, [facility] [address] [facility] [id number] [place] [address] Apr, [facility] [address] [facility] [id number] [place] [address] 20 Apr, 2014 [facility] [place] [facility] [address] [id number] [place] [address] 13 Apr, 2014 [facility] [place] [facility] [address] [id number] [place] [address] 13 Apr, 2014 [facility] [place] [facility] [address] [facility] [id number] [place] [address] 06 Apr, 2014 [facility] [place] [facility] [address] [id number] [place] [address] 06 Apr, 2014 [facility] [place] [facility] [address] [id number] [place] [address] Apr, 2014 [facility] [place] [facility] [address] [facility] [id number] [place] [address] Apr, 2014 [facility] [place] [facility] [address] [facility] [id number] [place] [address] 24 Apr, 2014 [facility] [place] [facility] [address] [facility] [id number] [place] [address] 24 Apr, 2014 [facility] [place] [facility] [address] [facility] [id number] [place] [address] 23 Apr, 2014 [facility] [place] [facility] [address] [facility] [id number] [place] [address] 23 Apr, 2014 [facility] [place] [facility] [address] [facility] [id number] [place] [address] 20 Apr, 2014 [facility] [place] [facility] [address] [id number] [place] [address] 20 Apr, 2014 [facility] [place] [facility] [address] [id number] [place] [address] 18 Apr, 2014 [facility] [place] [facility] [address] [facility] [id number] [place] [address] 18 Apr, 2014 [facility] [place] [facility] [address] [facility] [id number] [place] [address] Apr, 2014 [facility] [place] [facility] [address] [id number] [place] [address] Apr, 2014 [facility] [place] [facility] [address] [facility] [id number] [place] [address] Apr, 2014 [facility] [place] [facility] [address] [facility] [id number] [place] [address] Apr, 2014 [facility] [place] [facility] [address] [facility] [id number] [place] [address] Apr, 2014 [facility] [place] [facility] [address] [facility] [id number] [place] [address] Apr, 2014 [facility] [place] [facility] [address] [facility] [id number] [place] [address] Apr, 2014 [facility] [place] [facility] [id number] [place] [address] Apr, 2014 [facility] [place] [facility] [address] [facility] [id number] [place] [address] Apr, 2014 [facility] [place] [facility] [address] [facility] [id number] [place] [address] Apr, 2014 [facility] [place] [facility] [address] [facility] [id number] [place] [address] Apr, 2014 [facility] [place] [facility] [address] [facility] [id number] [place] [address] Apr, 2014 [facility] [place] [facility] [address] [facility] [id number] [place] [address] Apr, 2014 [facility] [place] [facility] [address] [facility] [id number] [place] [address] Mar, [facility] [place] [facility] [address] [facility] [id number] [place] [address] Mar, [facility] [place] [facility] [address] [facility] [id number] [place] [address] Mar, [facility] [place] [facility] [address] [id number] [place] [address] Mar, [facility] [address] [id number] [place] [address] Mar, [facility] [address] [id number] [place] [address] Mar, [facility] [address] [id number] [place] [address] Mar, [facility] [address] [id number] [place] [address] Mar, [facility] [address] [id number] [place] [address] Mar, [facility] [address] [id number] [place] [address] Mar, [facility] [address] [id number] [place] [address] Jan, [facility] [address] [id number] [place] [address] Jan, [facility] [place] [facility] [address] [id number] [place] [address] Jan, [facility] [place] [facility] [address] [id number] [place] [address] Jan, [facility] [place] [facility] [address] [id number] [place] [address] Jan, [facility] [place] [facility] [address] [id number] [place] [address] Jan, [facility] [place] [facility] [address] [id number] [place] [address] Jan, [facility] [place] [facility] [address] [id number] [place] [address] Jan, [facility] [place] [facility] [address] [id number] [place] [address] Jan, [facility] [place] [facility] [address] [id number] [place] [address] Jan, [facility] [place] [facility] [address] [id number] [place] [address] Jan, [facility] [place] [facility] [address] [id number] [place] [address] Jan, [facility] [place] [facility] [address] [id number] [place] [address] Dec, [facility] [place] [facility] [address] [id number] [place] [address] Dec, [facility] [place] [facility] [address] [id number] [place] [address] Dec, [facility] [place] [facility] [address] [id number] [place] [address] Dec, [facility] [place] [facility] [address] [id number] [place] [address] Dec, [facility] [place] [facility] [address] [id number] [place] [address] Dec, [facility] [place] [facility] [address] [id number] [place] [address] Dec, [facility] [place] [facility] [address] [id number] [place] [address] Dec, [facility] [place] [facility] [address] [id number] [place] [address] Dec, [facility] [place] [facility] [address] [id number] [place] [address] Dec, [facility] [place] [facility] [address] [id number] [place] [address] Nov, [facility] [place] [facility] [address] [id number] [place] [address] Nov, [facility] [place] [facility] [address] [id number] [place] [address] Nov, 2013 [facility] [place] [facility] [address] [id number] [place] [address] Nov, [facility] [place] [facility] [address] [id number] [place] [address] Nov, 2013 [facility] [place] [facility] [address] [id number] [place] [address] Nov, [facility] [place] [facility] [address] [id number] [place] [address] Nov, [facility] [place] [facility] [address] [id number] [place] [address] Nov, [facility] [place] [facility] [address] [id number] [place] [address] Nov, [facility] [place] [facility] [address] [id number] [place] [address] Nov, [facility] [place] [facility] [address] [id number] [place] [address] Nov, [facility] [place] [facility] [address] [id number] [place] [address] 17 Nov, 2013 [facility] [place] [facility] [address] [id number] [place] [address] Nov, [facility] [place] [facility] [address] [id number] [place] [address] 14 Nov, 2013 [facility] [place] [facility] [address] [id number] [place] [address] 10 Nov, 2013 [facility] [place] [facility] [address] [id number] [place] [address] 10 Nov, 2013 [facility] [place] [facility] [address] [id number] [place] [address] 08 Nov, 2013 [facility] [place] [facility] [address] [id number] [place] [address] Nov, [facility] [place] [facility] [address] [id number] [place] [address] Nov, [facility] [place] [facility] [address] [id number] [place] [address] Nov, [facility] [place] [facility] [address] [id number] [place] [address] Oct, [facility] [place] [facility] [address] [id number] [place] [address] Oct, [facility] [place] [facility] [address] [id number] [place] [address] Oct, [facility] [place] [facility] [address] [id number] [place] [address] Oct, [facility] [place] [facility] [address] [id number] [place] [address] Oct, [facility] [place] [facility] [address] [id number] [place] [address] Oct, [facility] [place] [facility] [address] [id number] [place] [address] Oct, [facility] [place] [facility] [address] [id number] [place] [address] Oct, [facility] [place] [facility] [address] [id number] [place] [address] Oct, [facility] [place] [facility] [address] [id number] [place] [address] Oct, [facility] [place] [facility] [address] [id number] [place] [address] Sep, [facility] [place] [facility] [address] [id number] [place] [address] Sep, [facility] [place] [facility] [address] [id number] [place] [address] Sep, [facility] [place] [facility] [address] [id number] [place] [address] Sep, [facility] [place] [facility] [address] [id number] [place] [address] Sep, [facility] [place] [facility] [address] [id number] [place] [address] Sep, [facility] [place] [facility] [address] [id number] [place] [address] Sep, [facility] [place] [facility] [address] [id number] [place] [address] Sep, [facility] [place] [facility] [address] [id number] [place] [address] Sep, [facility] [place] [facility] [address] [id number] [place] [address] Sep, [facility] [place] [facility] [address] [id number] [place] [address] Sep, [facility] [place] [facility] [address] [id number] [place] [address] Sep, [facility] [place] [facility] [address] [id number] [place] [address] Sep, [facility] [place] [facility] [address] [id number] [place] [address] Sep, [facility] [place] [facility] [address] [id number] [place] [address] Sep, [facility] [place] [facility] [address] [id number] [place] [address] Sep, [facility] [place] [facility] [address] [id number] [place] [address] Sep, [facility] [place] [facility] [address] [id number] [place] [address] Sep, [facility] [place] [facility] [address] [id number] [place] [address] Sep, [facility] [place] [facility] [address] [id number] [facility] [place] [address] Sep, [facility] [place] [facility] [address] [id number] [facility] [place] [address] Sep, [facility] [place] [facility] [address] [id number] [place] [address] Sep, [facility] [place] [facility] [address] [id number] [place] [address] Sep, [facility] [place] [facility] [address] [id number] [place] [address] Sep, [facility] [place] [facility] [address] [id number] [place] [address] Sep, [facility] [place] [facility] [address] [id number] [place] [address] Aug, [facility] [place] [facility] [address] [id number] [place] [address] Aug, [facility] [place] [facility] [address] [id number] [place] [address] Aug, [facility] [place] [facility] [address] [id number] [place] [address] Aug, [facility] [place] [facility] [address] [id number] [place] [address] Aug, [facility] [place] [facility] [address] [id number] [place] [address] Aug, [facility] [place] [facility] [address] [id number] [place] [address] Aug, [facility] [place] [facility] [address] [id number] [place] [address] Aug, [facility] [place] [facility] [address] [id number] [place] [address] Aug, [facility] [place] [facility] [address] [id number] [place] [address] Aug, [facility] [place] [facility] [address] [id number] [place] [address] Aug, [facility] [place] [facility] [address] [id number] [place] [address] Aug, [facility] [place] [facility] [address] [id number] [place] [address] Aug, [facility] [place] [facility] [address] [id number] [place] [address] Jul, [facility] [place] [facility] [address] [id number] [place] [address] Jul, [facility] [place] [facility] [address] [id number] [place] [address] Jul, [facility] [place] [facility] [address] [id number] [place] [address] Jul, [facility] [place] [facility] [address] [id number] [place] [address] Jul, [facility] [place] [facility] [address] [id number] [place] [address] Jul, [facility] [place] [facility] [address] [id number] [place] [address] Jul, [facility] [place] [facility] [address] [id number] [place] [address] June, [facility] [place] [facility] [address] [id number] [place] [address] June, [facility] [place] [facility] [address] [id number] [place] [address] June, [facility] [place] [facility] [address] [id number] [place] [address] June, [facility] [place] [facility] [address] [id number] [place] [address] May, [facility] [place] [facility] [address] [id number] [place] [address] May, [facility] [place] [facility] [address] [id number] [place] [address] May, [facility] [place] [facility] [address] [id number] [place] [address] May, [facility] [place] [facility] [address] [id number] [place] [address] May, [facility] [place] [facility] [address] [id number] [place] [address] May, [facility] [place] [facility] [address] [id number] [place] [address] May, [facility] [place] [facility] [address] [id number] [place] [address] May, [facility] [place] [facility] [address] [facility] [id number] [place] [address] May, [facility] [place] [facility] [address] [facility] [address] [facility] [id number] [place] [address] May, [facility] [place] [facility] [address] [id number] [place] [address] Apr, [facility] [place] [facility] [address] [facility] [address] [facility] [id number] [place] [address] Apr, [facility] [place] [facility] [address] [id number] [place] [address] Apr, [facility] [place] [facility] [address] [facility] [address] [facility] [id number] [place] [address] Apr, [facility] [place] [facility] [address] [id number] [place] [address] Apr, [facility] [place] [facility] [address] [facility] [address] [facility] [id number] [place] [address] Apr, [facility] [place] [facility] [address] [facility] [address] [facility] [id number] [place] [address] Apr, [facility] [address] [id number] [place] [address] Apr, [facility] [place] [facility] [address] [id number] [place] [address] Apr, [facility] [place] [facility] [address] [id number] [place] [address] Apr, [facility] [place] [facility] [address] [id number] [place] [address] Mar, [facility] [place] [facility] [address] [id number] [place] [address] Mar, [facility] [place] [facility] [address] [id number] [place] [address] Mar, [facility] [place] [facility] [address] [id number] [place] [address] Mar, [facility] [place] [facility] [address] [id number] [place] [address] Mar, [facility] [place] [facility] [address] [id number] [place] [address] Mar, [facility] [place] [facility] [address] [facility] [facility] [id number] [place] [address] Jan, [facility] [place] [facility] [address] [id number] [place] [address] Jan, [facility] [place] [facility] [address] [id number] [place] [address] Jan, [facility] [place] [facility] [address] [id number] [place] [address] Jan, [facility] [place] [facility] [address] [id number] [place] [address] Jan, [facility] [place] [facility] [address] [facility] [address] [facility] [id number] [place] [address] Jan, [facility] [place] [facility] [address] [id number] [place] [address] Jan, [facility] [address] [id number] [place] [address] Jan, [facility] [place] [facility] [address] [id number] [place] [address] Jan, [facility] [address] [id number] [place] [address] Dec, [facility] [place] [facility] [address] [id number] [place] [address] Dec, [facility] [place] [facility] [address] [id number] [place] [address] Dec, [facility] [place] [facility] [address] [id number] [place] [address] Dec, [facility] [address] [facility] [facility] [id number] [place] [address] Dec, [facility] [place] [facility] [address] [id number] [place] [address] Dec, [facility] [place] [facility] [address] [facility] [address] [facility] [id number] [place] [address] Dec, [facility] [place] [facility] [address] [facility] [address] [facility] [id number] [place] [address] Dec, [facility] [place] [facility] [address] [id number] [place] [address] Dec, [facility] [place] [facility] [address] [id number] [place] [address] Dec, [facility] [place] [facility] [address] [id number] [place] [address] Dec, [facility] [place] [facility] [address] [facility] [address] [facility] [id number] [place] [address] Nov, [facility] [place] [facility] [address] [id number] [place] [address] Nov, [facility] [place] [facility] [address] [id number] [place] [address] Nov, [facility] [address] [id number] [place] [address] Nov, [facility] [place] [facility] [address] [id number] [place] [address] Nov, [facility] [place] [facility] [address] [id number] [place] [address] Oct, [facility] [address] [id number] [place] [address] Oct, [facility] [place] [facility] [address] [id number] [place] [address] Sep, [facility] [address] [id number] [place] [address] Aug, [facility] [address] [id number] [place] [address] Aug, [facility] [address] [id number] [place] [address] Aug, [facility] [address] [id number] [place] [address] Aug, [facility] [place] [facility] [address] [id number] [place] [address] Jul, [facility] [place] [facility] [address] [id number] [place] [address] Jul, [facility] [place] [facility] [address] [id number] [place] [address] June, [facility] [place] [facility] [address] [id number] [place] [address] June, [facility] [place] [facility] [address] [id number] [place] [address] June, [facility] [place] [facility] [address] [id number] [place] [address] 08 May, 2012 [facility] [address] [id number] [place] [address] May, [facility] [place] [facility] [address] [id number] [place] [address] May, [facility] [address] [facility] [id number] [place] [address] 18 Apr, 2012 [facility] [place] [facility] [address] [id number] [place] [address] 18 Apr, 2012 [facility] [address] [id number] [place] [address] 15 Apr, 2012 [facility] [address] [facility] [id number] [place] [address] 14 Apr, 2012 [facility] [address] [facility] [id number] [place] [address] Apr, [facility] [address] [facility] [id number] [place] [address] Apr, [facility] [address] [facility] [id number] [place] [address] Apr, [facility] [address] [facility] [id number] [place] [address] Apr, [facility] [address] [facility] [id number] [place] [address] Apr, [facility] [place] [facility] [address] [facility] [id number] [place] [address] 20 Apr, 2012 [facility] [place] [facility] [address] [facility] [id number] [place] [address] 19 Apr, 2012 [facility] [place] [facility] [address] [facility] [id number] [place] [address] 07 Apr, 2012 [facility] [place] [facility] [address] [facility] [id number] [place] [address] 07 Apr, 2012 [facility] [place] [facility] [address] [id number] [place] [address] Mar, [facility] [address] [id number] [place] [address] Mar, [facility] [address] [id number] [place] [address] Mar, [facility] [address] [id number] [place] [address] Mar, [facility] [address] [id number] [place] [address] Mar, [facility] [address] [id number] [place] [address] Jan, [facility] [address] [id number] [place] [address] Jan, [facility] [address] [id number] [place] [address] Jan, [facility] [address] [id number] [place] [address] Jan, [facility] [address] [id number] [place] [address] 14 Jan, 2012 [facility] [address] [id number] [place] [address] Jan, [facility] [address] [id number] [place] [address] Jan, [facility] [address] [id number] [place] [address] Jan, [facility] [address] [id number] [place] [address] 06 Jan, 2012 [facility] [address] [id number] [place] [address] 06 Jan, 2012 [facility] [address] [id number] [place] [address] 04 Jan, 2012 [facility] [place] [facility] [address] [id number] [place] [address] Jan, [facility] [place] [facility] [address] [id number] [place] [address] 04 Jan, 2012 [facility] [place] [facility] [address] [id number] [place] [address] Jan, [facility] [place] [facility] [address] [id number] [place] [address] Dec, [facility] [place] [facility] [address] [id number] [place] [address] 26 Jan, 2012 [facility] [place] [facility] [address] [id number] [place] [address] Dec, [facility] [place] [facility] [address] [id number] [place] [address] Dec, [facility] [place] [facility] [address] [id number] [place] [address] 15 Jan, 2012 [facility] [place] [facility] [address] [id number] [place] [address] 15 Jan, 2012 [facility] [place] [facility] [address] [id number] [place] [address] 14 Jan, 2012 [facility] [place] [facility] [address] [id number] [place] [address] 14 Jan, 2012 [facility] [place] [facility] [address] [id number] [place] [address] 14 Jan, 2012 [facility] [place] [facility] [address] [id number] [place] [address] 14 Jan, 2012 [facility] [place] [facility] [address] [id number] [place] [address] 07 Jan, 2012 [facility] [place] [facility] [address] [id number] [place] [address] 07 Jan, 2012 [facility] [place] [facility] [address] [id number] [place] [address] 16 Dec, 2011 [facility] [address] [id number] [place] [address] 16 Dec, 2011 [facility] [place] [facility] [address] [id number] [place] [address] 13 Nov, 2011 [facility] [address] [id number] [place] [address] 13 Nov, 2011 [facility] [address] [id number] [place] [address] 13 Nov, 2011 [facility] [address] [id number] [place] [address] 12 Nov, 2011 [facility] [address] [id number] [place] [address] Sep, [facility] [address] [id number] [place] [address] Sep, [facility] [address] [id number] [place] [address] Aug, [facility] [address] [id number] [place] [address] Aug, [facility] [address] [id number] [place] [address] Aug, [facility] [address] [id number] [place] [address] Aug, [facility] [address] [id number] [place] [address] June, [facility] [place] [facility] [address] [id number] [place] [address] June, [facility] [place] [facility] [address] [id number] [place] [address] May, [facility] [address] [id number] [place] [address] Apr, [facility] [address] [id number] [place] [address] Apr, [facility] [place] [facility] [address] [id number] [place] [address] Apr, [facility] [address] [id number] [place] [address] Apr, [facility] [place] [facility] [address] [id number] [place] [address] Apr, [facility] [address] [id number] [place] [address] Apr, [facility] [address] [id number] [place] [address] Mar, [facility] [address] [id number] [place] [address] Mar, [facility] [address] [id number] [place] [address] Mar, [facility] [address] [id number] [place] [address] Jan, [facility] [address] [id number] [place] [address] Jan, [facility] [place] [facility] [address] [id number] [place] [address] Jan, [facility] [place] [facility] [address] [id number] [place] [address] Jan, [facility] [place] [facility] [address] [id number] [place] [address] Jan, [facility] [place] [facility] [address] [id number] [place] [address] Jan, [facility] [place] [facility] [address] [id number] [place] [address] Jan, [facility] [place] [facility] [address] [id number] [place] [address] Dec, [facility] [place] [facility] [address] [id number] [place] [address] Dec, [facility] [place] [facility] [address] [id number] [place] [address] Nov, [facility] [place] [facility] [address] [id number] [place] [address] Nov, [facility] [place] [facility] [address] [id number] [place] [address] Nov, [facility] [place] [facility] [address] [id number] [place] [address] Nov, [facility] [place] [facility] [address] [id number] [place] [address] Oct, [facility] [place] [facility] [address] [id number] [place] [address] Sep, [facility] [place] [facility] [address] [id number] [place] [address] Mar, [facility] [place] [facility] [address] [id number] [place] [address] Jan, [facility] [place] [facility] [address] [facility] [id number] [place] [address] Dec, [facility] [place] [facility] [address] [id number] [place] [address] Dec, [facility] [place] [facility] [address] [id number] [place] [address] Dec, [facility] [place] [facility] [address] [id number] [place] [address] Dec, [facility] [place] [facility] [address] [id number] [place] [address] Nov, [facility] [place] [facility] [address] [facility] [id number] [place] [address] 15 Nov, 2009 [facility] [place] [facility] [address] [id number] [place] [address] 14 Nov, 2009 [facility] [address] [id number] [place] [address] 14 Nov, 2009 [facility] [place] [facility] [address] [id number] [place] [address] 13 Oct, 2009 [facility] [place] [facility] [address] [id number] [place] [address] 17 Jul, 2009 [facility] [place] [facility] [address] [id number] [place] [address] 17 Jun, 2009 [facility] [place] [facility] [address] [id number] [place] [address] June, [facility] [address] [id number] [place] [address] 17 Apr, 2009 [facility] [address] [id number] [place] [address] Mar, [facility] [address] [id number] [place] [address] 24 Jan, 2009 [facility] [address] [id number] [place] [address] Jan, [facility] [place] [facility] [address] [id number] [place] [address] 27 Dec, 2008 [facility] [place] [facility] [address] [id number] [place] [address] 25 Dec, 2008 [facility] [place] [facility] [address] [id number] [place] [address] 13 Dec, 2008 [facility] [place] [facility] [address] [id number] [place] [address] 13 Dec, 2008 [facility] [place] [facility] [address] [id number] [place] [address] 30 Nov, 2008 [facility] [place] [facility] [address] [id number] [place] [address] Jul, [facility] [address] [facility] [id number] [place] [address] June, IMMUNIZATIONS No Known Immunizations SOCIAL HISTORY Never Assessed REASON FOR VISIT [place] [place] VITAL SIGNS MEDICATIONS Unknown Medications RESULTS No Results PROCEDURES Procedure Date Ordered Result Body Site PROTHROMBIN TIME Apr 26, 2012 INSTRUCTIONS MEDICATIONS ADMINISTERED No Known Medications MEDICAL (GENERAL) HISTORY Type Description Date Medical History hypertension Medical History sleep apnea-did not tolerate CPAP Medical History oxygen dependent at [facility] Medical History colonic polyps Medical History [...]
--- OUTSIDE RECORDS SUMMARY | 2018-08-23 17:00 | XMS REPORT ---
Author Author Migration, Doctor Organization [facility] Address Unknown Phone Unavailable Care Team Providers Care Field Service Rep Name Role Phone Migration, Doctor Unavailable Unavailable PROBLEMS Type Condition ICD9-CM Code ZIP62-ZJ Code Onset Dates Condition Status SNOMED Code Problem Pulmonary asbestosis J61 Active 14596911 Problem Renal cyst, left N28.1 Active 11009604 Problem Left ventricular diastolic dysfunction I51.9 Active 901326808 Problem Urge incontinence N39.41 Active 897960831 Problem Anxiety F41.9 Active 19805740 Problem Low back pain M54.5 Active 657523977 Problem Age-related osteoporosis without current pathological fracture M81.0 Active 10234571 Problem History of diverticulitis Z87.19 Active 809488391806788 Problem Allergic rhinitis, unspecified allergic rhinitis type J30.9 Active 06083985 Problem Nephrolithiasis N20.0 Active 44705068 Problem Nocturnal hypoxia G47.34 Active 476499821 Problem Psoriasis L40.9 Active 3965251 Problem Essential hypertension I10 Active 69422716 Problem Chronic gout, unspecified cause, unspecified site M1A.9XX0 Active 12846021 Problem Esophageal stricture K22.2 Active 98758314 Problem Obstructive sleep apnea syndrome G47.33 Active 97501176 Problem History of weight loss surgery Z98.84 Active 780220791 Problem 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 Active 77438103 Problem Chronic prescription opiate use Z79.899 Active 869047638 Problem Moderate episode of recurrent major depressive disorder F33.1 Active 911859188 Problem Chronic obstructive pulmonary disease, unspecified COPD type J44.9 Active 34228395 Problem Primary insomnia F51.01 Active 968739353 Problem Neuropathy G62.9 Active 234286328 Problem Cervicalgia M54.2 Active 4686932241518 Problem Hyperlipidemia, unspecified E78.5 Active 19706630 Problem Benign prostatic hyperplasia, presence of lower urinary tract symptoms unspecified, unspecified morphology N40.0 Active 622122926 Problem Acute right-sided low back pain with right-sided sciatica M54.41 Active 588665703 Problem Erectile dysfunction due to diseases classified elsewhere N52.1 Active 334568878 Problem Hammertoe of left foot M20.42 Active 446859094 ALLERGIES No Information ENCOUNTERS Encounter Location Date Diagnosis [place] [id number] [place] [address] Jul, [place] [id number] [place] [address] June, [place] [id number] [place] [address] June, [place] [id number] [place] [address] May, Primary insomnia F51.01 [place] [id number] [place] [address] May, Moderate episode of recurrent major depressive disorder F33.1 ; Morbid obesity E66.01 and Neuropathy G62.9 [place] [id number] [place] [address] May, Onychomycosis B35.1 ; Neuropathy G62.9 and Closed nondisplaced fracture of metatarsal bone of left foot, unspecified metatarsal, initial encounter S92.302A [place] [address] [place] [address] May, [place] [id number] [place] [address] Apr, Moderate episode of recurrent major depressive disorder F33.1 ; Morbid obesity E66.01 ; Hyperlipidemia, unspecified E78.5 ; Primary insomnia F51.01 and Low back pain M54.5 [place] [id number] [place] [address] Apr, Primary insomnia F51.01 [place] [id number] [place] [address] Apr, Anxiety F41.9 [place] [id number] [place] [address] Apr, Low back pain M54.5 [facility] [address] [address] Apr, Anxiety F41.9 [facility] [id number] [place] [address] Mar, Moderate episode of recurrent major depressive disorder F33.1 ; BMI 50.0-59.9, adult Z68.43 ; Anxiety F41.9 and Chronic prescription opiate use Z79.899 [place] [address] [address] Mar, Onychomycosis B35.1 ; Neuropathy G62.9 and Impaired circulation I99.9 [place] [id number] [place] [address] Mar, Low back pain M54.5 [place] [id number] [place] [address] Mar, Anxiety F41.9 [place] [address] [address] Jan, BMI 50.0-59.9, adult Z68.43 ; Chronic obstructive pulmonary disease, unspecified COPD type J44.9 ; Low back pain M54.5 and Moderate episode of recurrent major depressive disorder F33.1 [place] [id number] [place] [address] Jan, [place] [id number] [place] [address] Jan, [place] [id number] [place] [address] Dec, Anxiety F41.9 [facility] [id number] [place] [address] Dec, [place] [address] [place] [address] Dec, Anxiety F41.9 [place] [id number] [place] [address] Dec, [place] [id number] [place] [address] Dec, Encounter for immunization Z23 [facility] [address] [address] Dec, [facility] [id number] [place] [address] Dec, Hammertoe of left foot M20.42 ; Edema of left foot R60.0 and Onychomycosis B35.1 [facility] [place] [id number] [place] [address] Nov, BMI 50.0-59.9, adult Z68.43 [place] [id number] [place] [address] Nov, [place] [id number] [place] [address] Nov, [place] [id number] [place] [address] Nov, Anxiety F41.9 [place] [id number] [place] [address] Oct, [place] [id number] [place] [address] Oct, [place] [id number] [place] [address] Oct, BMI 45.0-49.9, adult Z68.42 ; Essential hypertension I10 ; Hyperlipidemia, unspecified E78.5 ; Anxiety F41.9 ; Obstructive sleep apnea syndrome G47.33 ; Moderate episode of recurrent major depressive disorder F33.1 ; Left ventricular diastolic dysfunction I51.9 ; Acute pain of right shoulder M25.511 ; Pain of left foot M79.672 and Pain in right foot M79.671 [facility] [address] [place] [address] Oct, Anxiety F41.9 [facility] [address] [place] [address] Sep, Left foot pain M79.672 [facility] [id number] [place] [address] Sep, [facility] [id number] [place] [address] Sep, Anxiety F41.9 [facility] [id number] [place] [address] Sep, [facility] [id number] [place] [address] Aug, [facility] [id number] [place] [address] Aug, [facility] [id number] [place] [address] Aug, Anxiety F41.9 [facility] [id number] [place] [address] Aug, [facility] [address] [place] [address] Jul, [facility] [id number] [place] [address] Jul, Anxiety F41.9 [facility] [id number] [place] [address] June, Anxiety F41.9 [facility] [id number] [place] [address] June, [facility] [id number] [place] [address] June, Low back pain M54.5 ; Chronic prescription opiate use Z79.899 ; Candidal intertrigo B37.2 ; Urge incontinence N39.41 ; Essential hypertension I10 ; Moderate episode of recurrent major depressive disorder F33.1 ; Age-related osteoporosis without current pathological fracture M81.0 and BMI 45.0-49.9, adult Z68.42 [facility] [id number] [place] [address] June, [facility] [address] [address] May, Anxiety F41.9 [facility] [address] [address] May, [facility] [id number] [place] [address] May, [facility] [address] [address] Apr, Anxiety F41.9 [facility] [address] [address] Apr, [facility] [address] [address] Apr, Low back pain M54.5 [facility] [id number] [place] [address] Apr, [facility] [address] [address] Apr, [facility] [id number] [place] [address] Apr, Anxiety F41.9 [facility] [id number] [place] [address] Apr, Right groin pain R10.31 [facility] [address] [address] Mar, [facility] [address] [place] [address] Mar, [facility] [id number] [place] [address] Mar, Anxiety F41.9 [facility] [id number] [place] [address] Mar, Low back pain M54.5 [facility] [id number] [place] [address] Mar, Right groin pain R10.31 ; Low back pain M54.5 and BMI 45.0-49.9, adult Z68.42 [facility] [id number] [place] [address] Mar, [facility] [id number] [place] [address] Mar, [facility] [id number] [place] [address] Mar, [facility] [id number] [place] [address] Mar, [facility] [id number] [place] [address] Mar, Cough R05 ; Pneumonia of right lower lobe due to infectious organism J18.1 and Abnormal chest x-ray R93.8 [facility] [address] [place] [address] Mar, [facility] [address] [place] [address] Mar, [facility] [id number] [place] [address] Jan, Anxiety F41.9 [facility] [address] [place] [address] Jan, [facility] [id number] [place] [address] Jan, Moderate episode of recurrent major depressive disorder F33.1 [facility] [id number] [place] [address] Jan, Subacromial bursitis of right shoulder joint M75.51 ; Shortness of breath on exertion R06.02 and BMI 45.0-49.9, adult Z68.42 [facility] [id number] [place] [address] Dec, Anxiety F41.9 [facility] [id number] [place] [address] Dec, [facility] [id number] [place] [address] Dec, Low back pain M54.5 [facility] [id number] [place] [address] Oct, Low back pain M54.5 [facility] [id number] [place] [address] Sep, [facility] [id number] [place] [address] Sep, Erectile dysfunction due to diseases classified elsewhere N52.1 [facility] [id number] [place] [address] Sep, Erectile dysfunction due to diseases classified elsewhere N52.1 [facility] [id number] [place] [address] Sep, [facility] [id number] [place] [address] Sep, Erectile dysfunction due to diseases classified elsewhere N52.1 [facility] [id number] [place] [address] Sep, Low back pain M54.5 and Anxiety F41.9 [facility] [address] [place] [address] Aug, Acute allergic rhinitis J30.9 [facility] [id number] [place] [address] Aug, [facility] [id number] [place] [address] Aug, Anxiety F41.9 [facility] [id number] [place] [address] Jul, Low back pain M54.5 ; Chronic prescription opiate use Z79.899 and Essential hypertension I10 [facility] [id number] [place] [address] Jul, Anxiety F41.9 and Low back pain M54.5 [facility] [id number] [place] [address] June, [facility] [id number] [place] [address] June, Anxiety F41.9 [facility] [id number] [place] [address] May, Low back pain M54.5 [facility] [address] [place] [address] May, [facility] [id number] [place] [address] May, Anxiety F41.9 [facility] [address] [place] [address] Apr, [facility] [id number] [place] [address] Apr, Low back pain M54.5 [facility] [address] [place] [address] 17 Apr, 2016 Moderate episode of recurrent major depressive disorder F33.1 [facility] [id number] [place] [address] Apr, Anxiety F41.9 [place] [id number] [place] [address] Apr, Low back pain M54.5 [place] [id number] [place] [address] Apr, Elevated alkaline phosphatase level R74.8 [place] [id number] [place] [address] 10 Apr, 2016 Alkaline phosphatase elevation R74.8 [place] [address] [address] Apr, Anxiety F41.9 [place] [id number] [place] [address] Apr, Low back pain M54.5 [place] [id number] [place] [address] Apr, History of weight loss surgery Z98.84 ; Encounter for hepatitis C screening test for low risk patient Z11.59 ; History of herpes genitalis Z86.19 ; Essential hypertension I10 ; Hyperlipidemia, unspecified E78.5 ; Exposure to STD Z20.2 and Benign prostatic hyperplasia, presence of lower urinary tract symptoms unspecified, unspecified morphology N40.0 [place] [id number] [place] [address] Apr, [place] [id number] [place] [address] Mar, [place] [id number] [place] [address] Mar, [place] [id number] [place] [address] Mar, [place] [id number] [place] [address] Mar, Acute right-sided low back pain with right-sided sciatica M54.41 [facility] [address] [address] Mar, Low back pain M54.5 [facility] [address] [place] [address] 13 Mar, 2016 Muscle strain of chest wall, initial encounter S29.011A ; Muscle strain of right thigh, initial encounter S76.911A and Acute non-recurrent maxillary sinusitis J01.00 [facility] [address] [place] [address] 03 Mar, 2016 Benign prostatic hyperplasia, presence of lower urinary tract symptoms unspecified, unspecified morphology N40.0 [place] [id number] [place] [address] Jan, Low back pain M54.5 [facility] [id number] [place] [address] Jan, Low back pain M54.5 ; Essential hypertension I10 ; Hyperlipidemia, unspecified E78.5 ; Anxiety F41.9 ; Moderate episode of recurrent major depressive disorder F33.1 ; Primary insomnia F51.01 ; Exposure to STD Z20.2 ; Encounter for hepatitis C screening test for low risk patient Z11.59 and History of herpes genitalis Z86.19 [place] [address] [address] Dec, [facility] [id number] [place] [address] Nov, [facility] [id number] [place] [address] 14 Dec, 2015 Anxiety F41.9 ; Cervicalgia M54.2 ; Moderate episode of recurrent major depressive disorder F33.1 and Encounter for immunization Z23 [place] [address] [place] [address] Oct, [place] [address] [place] [address] 22 Nov, 2015 [facility] [id number] [place] [address] 16 Nov, 2015 [facility] [id number] [place] [address] Oct, [facility] [id number] [place] [address] Sep, [facility] [id number] [place] [address] Aug, Low back pain M54.5 ; Anxiety F41.9 ; Primary insomnia F51.01 and Chronic prescription opiate use Z79.899 [facility] [id number] [place] [address] Jul, [facility] [id number] [place] [address] Jul, [facility] [id number] [place] [address] Jul, [facility] [id number] [place] [address] Jul, [facility] [id number] [place] [address] Jul, [facility] [address] [place] [address] June, [facility] [id number] [place] [address] June, [facility] [id number] [place] [address] June, [facility] [id number] [place] [address] June, [facility] [address] [place] [address] May, Preoperative cardiovascular examination Z01.810 [facility] [address] [address] May, [facility] [id number] [place] [address] Apr, [facility] [id number] [place] [address] Apr, Osteoarthritis of right knee M17.9 [facility] [id number] [place] [address] 30 May, 2015 [facility] [id number] [place] [address] 16 May, 2015 [facility] [id number] [place] [address] Apr, [facility] [id number] [place] [address] Apr, [facility] [id number] [place] [address] Apr, History of excessive cerumen Z78.9 ; Obstructive sleep apnea syndrome G47.33 ; History of diverticulitis Z87.19 and Nephrolithiasis N20.0 [facility] [address] [place] [address] Apr, [facility] [address] [place] [address] Apr, Abdominal pain R10.9 [facility] [address] [place] [address] Apr, [facility] [id number] [place] [phone] 04 Apr, 2015 Osteoarthritis of right knee M17.9 [facility] [id number] [place] [phone] Mar, [facility] [id number] [place] [phone] 15 Mar, 2015 [facility] [id number] [place] [id number] 14 Mar, 2015 [facility] [id number] [place] [phone] 13 Mar, 2015 [facility] [id number] [place] [phone] Mar, Pyelonephritis N12 ; Left-sided thoracic back pain M54.6 ; Hematuria, unspecified R31.9 and Kidney stone N20.0 [facility] [id number] [place] [phone] 12 Mar, 2015 History of weight loss surgery Z98.84 [facility] [id number] [place] [phone] 07 Mar, 2015 History of weight loss surgery Z98.84 and Hyperlipidemia, unspecified E78.5 [facility] [id number] [place] [id number] Mar, Low back pain M54.5 ; Chronic prescription opiate use Z79.899 ; Hyperlipidemia, unspecified E78.5 ; Spasm of back muscles M62.830 and History of weight loss surgery Z98.84 [facility] [id number] [place] [phone] Jan, [facility] [id number] [place] [phone] Jan, [facility] [id number] [place] [phone] Jan, [facility] [id number] [place] [phone] Dec, [facility] [id number] [place] [phone] Dec, [facility] [id number] [place] [phone] Dec, [facility] [id number] [place] [phone] Nov, [facility] [facility] [id number] [place] [address] Nov, Obstructive sleep apnea syndrome G47.33 and Pharyngoesophageal dysphagia R13.14 [facility] [id number] [place] [address] Nov, [facility] [id number] [place] [id number] Nov, [facility] [address] [address] Nov, [facility] [id number] [place] [id number] Oct, 2014 Dental examination V72.2 [facility] [id number] [place] [address] Oct, [facility] [id number] [place] [address] Oct, [facility] [id number] [place] [address] Oct, [facility] [id number] [place] [address] Oct, [facility] [id number] [place] [address] Oct, BPH (benign prostatic hyperplasia) 600.00 and Urinary frequency 788.41 [facility] [id number] [place] [address] Oct, [facility] [id number] [place] [address] Oct, [facility] [id number] [place] [address] Oct, [facility] [address] [address] Sep, Cerumen impaction 380.4 ; Cerumen debris on tympanic membrane 380.4 ; Psoriasis 696.1 and MICKY (secretory otitis media) 381.4 [facility] [address] [id number] Sep, Dental examination V72.2 [facility] [id number] [place] [address] Sep, Fatigue 780.79 ; Irritable bowel syndrome 564.1 ; Overweight 278.02 ; Poor sleep V69.4 ; Shaking spells 781.0 and Broken tooth 873.63 [facility] [id number] [place] [address] Sep, [facility] [id number] [place] [address] Sep, [facility] [id number] [place] [address] Aug, [facility] [id number] [place] [id number] Jul, [facility] [id number] [place] [address] Jul, [facility] [id number] [place] [address] Jul, [facility] [id number] [place] [address] Jul, [facility] [id number] [place] [address] June, Arthritis of knee, right 716.96 [facility] [id number] [place] [address] June, [facility] [id number] [place] [address] June, Elevated blood pressure reading without diagnosis of hypertension 796.2 [facility] [address] [id number] [place] [address] June, [facility] [address] [id number] [place] [address] June, [facility] [address] [id number] [place] [address] June, [facility] [address] [id number] [place] [address] June, [facility] [address] [id number] [place] [address] May, [facility] [address] [id number] [place] [address] May, [facility] [id number] [place] [address] Apr, [facility] [address] [id number] [place] [address] Apr, [facility] [address] [id number] [place] [address] Apr, [facility] [address] [facility] [id number] [place] [address] Apr, [facility] [address] [id number] [place] [address] Apr, [facility] [place] [facility] [address] [id number] [place] [address] Apr, [facility] [place] [facility] [address] [id number] [place] [address] Apr, [facility] [place] [facility] [address] [id number] [place] [address] Apr, [facility] [place] [facility] [address] [facility] [id number] [place] [address] Apr, [facility] [place] [facility] [address] [id number] [place] [address] Apr, [facility] [place] [facility] [address] [id number] [place] [address] Apr, 2014 [facility] [place] [facility] [address] [id number] [place] [address] Apr, 2014 [facility] [place] [facility] [address] [id number] [place] [address] Apr, 2014 [facility] [place] [facility] [address] [id number] [place] [address] Apr, 2014 [facility] [place] [facility] [address] [id number] [place] [address] Apr, 2014 [facility] [place] [facility] [address] [facility] [id number] [place] [address] Apr, 2014 [facility] [place] [facility] [address] [facility] [id number] [place] [address] Apr, 2014 [facility] [place] [facility] [address] [facility] [id number] [place] [address] Apr, 2014 [facility] [place] [facility] [address] [facility] [id number] [place] [address] Apr, 2014 [facility] [place] [facility] [address] [facility] [id number] [place] [address] 18 Apr, 2014 [facility] [place] [facility] [address] [facility] [id number] [address] 13 Apr, 2014 [facility] [place] [facility] [address] [facility] [id number] [place] [address] 13 Apr, 2014 [facility] [place] [facility] [address] [facility] [id number] [place] [address] 13 Apr, 2014 [facility] [place] [facility] [address] [facility] [id number] [place] [address] 13 Apr, 2014 [facility] [place] [facility] [address] [facility] [id number] [place] [address] Apr, 2014 [facility] [place] [facility] [address] [id number] [place] [address] Apr, 2014 [facility] [place] [facility] [address] [id number] [place] [address] Apr, 2014 [facility] [place] [facility] [address] [id number] [place] [address] Apr, 2014 [facility] [place] [facility] [address] [id number] [place] [address] Apr, 2014 [facility] [place] [facility] [address] [id number] [place] [address] Apr, 2014 [facility] [place] [facility] [address] [facility] [id number] [place] [address] Apr, 2014 [facility] [place] [facility] [address] [facility] [id number] [place] [address] Apr, 2014 [facility] [place] [facility] [address] [id number] [place] [address] Apr, 2014 [facility] [place] [facility] [address] [facility] [id number] [place] [address] Mar, [facility] [place] [facility] [address] [facility] [id number] [place] [address] Mar, [facility] [place] [facility] [address] [facility] [id number] [place] [address] Mar, [facility] [place] [facility] [address] [id number] [place] [address] Mar, [facility] [place] [facility] [address] [facility] [id number] [place] [address] Mar, [facility] [place] [facility] [address] [facility] [id number] [place] [address] Mar, [facility] [place] [facility] [address] [facility] [id number] [address] Mar, [facility] [place] [facility] [address] [id number] [place] [address] Mar, [facility] [place] [facility] [address] [id number] [place] [address] Mar, [facility] [place] [facility] [address] [facility] [id number] [place] [address] Mar, [facility] [place] [facility] [address] [id number] [place] [address] Jan, [facility] [place] [facility] [address] [id number] [place] [address] Jan, [facility] [place] [facility] [address] [id number] [place] [address] Jan, [facility] [place] [facility] [address] [id number] [place] [address] Jan, [facility] [place] [facility] [address] [id number] [place] [address] Jan, [facility] [place] [facility] [address] [id number] [place] [address] Jan, [facility] [place] [facility] [address] [id number] [place] [address] Jan, [facility] [place] [facility] [address] [id number], [place] [address] Jan, [facility] [place] [facility] [address] [id number], [place] [address] Jan, [facility] [place] [facility] [address] [id number] [place] [address] Jan, [facility] [place] [facility] [address] [id number] [place] [address] Jan, [facility] [place] [facility] [address] [id number] [place] [address] Jan, [facility] [place] [facility] [address] [id number] [place] [address] Dec, [facility] [place] [facility] [address] [id number] [place] [address] Dec, [facility] [place] [facility] [address] [id number] [place] [address] Dec, [facility] [place] [facility] [address] [id number] [place] [address] Dec, [facility] [place] [facility] [address] [id number] [place] [address] Dec, [facility] [place] [facility] [address] [id number] [place] [address] Dec, [facility] [place] [facility] [address] [id number] [place] [address] Dec, [facility] [place] [facility] [address] [id number] [place] [address] Dec, [facility] [place] [facility] [address] [id number] [place] [address] Dec, [facility] [place] [facility] [address] [id number] [place] [address] Dec, [facility] [place] [facility] [address] [facility] [id number] [place] [address] Nov, [facility] [place] [facility] [address] [id number] [place] [address] Nov, [facility] [place] [facility] [address] [id number] [place] [address] Nov, [facility] [place] [facility] [address] [id number] [place] [address] Nov, [facility] [place] [facility] [address] [id number] [place] [address] Nov, [facility] [place] [facility] [address] [id number] [place] [address] Nov, [facility] [place] [facility] [address] [id number] [place] [address] Nov, [facility] [place] [facility] [address] [id number] [place] [address] Nov, [facility] [place] [facility] [address] [id number] [place] [address] Nov, [facility] [place] [facility] [address] [id number] [place] [address] Nov, [facility] [place] [facility] [address] [id number] [place] [address] Nov, [facility] [place] [facility] [address] [id number] [place] [address] Nov, [facility] [place] [facility] [address] [id number] [place] [address] Nov, [facility] [place] [facility] [address] [id number] [place] [address] Nov, [facility] [place] [facility] [address] [id number] [place] [address] Nov, [facility] [place] [facility] [address] [id number] [place] [address] Nov, [facility] [place] [facility] [address] [id number] [place] [address] Nov, [facility] [place] [facility] [address] [id number], [place] [address] Nov, [facility] [place] [facility] [address] [id number] [place] [address] Nov, [facility] [place] [facility] [address] [id number] [place] [address] Nov, [facility] [place] [facility] [address] [id number] [place] [address] Oct, [facility] [place] [facility] [address] [id number] [place] [address] Oct, [facility] [place] [facility] [address] [id number] [place] [address] Oct, [facility] [place] [facility] [address] [id number] [place] [address] Oct, [facility] [place] [facility] [address] [id number] [place] [address] Oct, [facility] [place] [facility] [address] [id number] [place] [address] Oct, [facility] [place] [facility] [address] [id number] [place] [address] Oct, [facility] [place] [facility] [address] [id number] [place] [address] Oct, [facility] [place] [facility] [address] [id number] [place] [address] Oct, [facility] [place] [facility] [address] [id number] [place] [address] Oct, [facility] [place] [facility] [address] [id number] [place] [address] Sep, [facility] [place] [facility] [address] [id number] [place] [address] Sep, [facility] [place] [facility] [address] [id number] [place] [address] Sep, [facility] [place] [facility] [address] [id number] [place] [address] Sep, [facility] [place] [facility] [address] [id number] [place] [address] Sep, [facility] [place] [facility] [address] [id number] [place] [address] Sep, [facility] [place] [facility] [address] [id number] [place] [address] Sep, [facility] [place] [facility] [address] [id number] [place] [address] Sep, [facility] [place] [facility] [address] [id number] [place] [address] Sep, [facility] [place] [facility] [address] [id number] [place] [address] Sep, [facility] [place] [facility] [address] [id number] [place] [address] Sep, [facility] [place] [facility] [address] [id number] [place] [address] Sep, [facility] [place] [facility] [address] [id number] [place] [address] Sep, [facility] [place] [facility] [address] [id number] [place] [address] Sep, [facility] [place] [facility] [address] [id number] [place] [address] Sep, [facility] [place] [facility] [address] [id number] [place] [address] Sep, [facility] [place] [facility] [address] [id number] [place] [address] Sep, [facility] [place] [facility] [address] [id number] [place] [address] Sep, [facility] [place] [facility] [address] [id number] [place] [address] Sep, [facility] [place] [facility] [address] [id number] [place] [address] Sep, [facility] [place] [facility] [address] [id number] [place] [address] Sep, [facility] [place] [facility] [address] [id number] [place] [address] Sep, [facility] [place] [facility] [address] [id number] [place] [address] Sep, [facility] [place] [facility] [address] [id number] [place] [address] Sep, [facility] [place] [facility] [address] [id number] [place] [address] Sep, [facility] [place] [facility] [address] [id number] [place] [address] Aug, [facility] [place] [facility] [address] [id number] [place] [address] Aug, [facility] [place] [facility] [address] [id number] [place] [address] Aug, [facility] [place] [facility] [address] [id number] [place] [address] Aug, [facility] [place] [facility] [address] [id number] [place] [address] Aug, [facility] [place] [facility] [address] [id number] [place] [address] Aug, [facility] [place] [facility] [address] [id number] [place] [address] Aug, [facility] [place] [facility] [address] [id number] [place] [address] Aug, [facility] [place] [facility] [address] [id number] [place] [address] Aug, [facility] [place] [facility] [address] [id number] [place] [address] Aug, [facility] [place] [facility] [address] [id number] [place] [address] Aug, [facility] [place] [facility] [address] [id number] [place] [address] Aug, [facility] [place] [facility] [address] [id number] [place] [address] Aug, [facility] [place] [facility] [address] [id number] [place] [address] Jul, [facility] [place] [facility] [address] [id number] [place] [address] Jul, [facility] [place] [facility] [address] [id number] [place] [address] Jul, [facility] [place] [facility] [address] [id number] [place] [address] Jul, [facility] [place] [facility] [address] [id number] [place] [address] Jul, [facility] [place] [facility] [address] [id number] [place] [address] Jul, [facility] [place] [facility] [address] [id number] [place] [address] Jul, [facility] [place] [facility] [address] [id number] [place] [address] June, [facility] [place] [facility] [address] [id number] [place] [address] June, [facility] [place] [facility] [address] [id number] [place] [address] June, [facility] [place] [facility] [address] [id number] [place] [address] June, [facility] [place] [facility] [address] [id number] [place] [address] May, [facility] [place] [facility] [address] [id number] [place] [address] May, [facility] [place] [facility] [address] [id number] [place] [address] May, [facility] [place] [facility] [address] [id number] [place] [address] May, [facility] [place] [facility] [address] [id number] [place] [address] May, [facility] [place] [facility] [address] [id number] [place] [address] May, [facility] [place] [facility] [address] [id number] [place] [address] May, [facility] [place] [facility] [address] [id number] [place] [address] May, [facility] [place] [facility] [address] [id number] [place] [address] May, [facility] [place] [facility] [address] [id number] [place] [address] May, [facility] [place] [facility] [address] [id number] [place] [address] Apr, [facility] [place] [facility] [address] [facility] [id number] [place] [address] Apr, [facility] [place] [facility] [address] [facility] [id number] [place] [address] Apr, [facility] [place] [facility] [address] [facility] [id number] [place] [address] Apr, [facility] [place] [facility] [address] [facility] [id number] [place] [address] Apr, [facility] [place] [facility] [address] [facility] [id number] [place] [address] Apr, [facility] [place] [facility] [address] [facility] [id number], [place] [address] Apr, [facility] [place] [facility] [address] [facility] [id number] [place] [address] Apr, [facility] [place] [facility] [address] [id number] [place] [address] Apr, [facility] [place] [facility] [address] [facility] [id number] [place] [address] Apr, [facility] [place] [facility] [address] [facility] [id number], [place] [address] Mar, [facility] [address] [id number] [place] [address] Mar, [facility] [address] [id number] [place] [address] Mar, [facility] [address] [facility] [id number] [place] [address] Mar, [facility] [address] [id number] [place] [address] Mar, [facility] [address] [id number] [place] [address] Mar, [facility] [address] [id number] [place] [address] Jan, [facility] [address] [facility] [id number] [place] [address] Jan, [facility] [address] [id number] [place] [address] Jan, [facility] [address] [id number] [place] [address] Jan, [facility] [address] [facility] [id number] [place] [address] Jan, [facility] [address] [id number] [place] [address] Jan, [facility] [place] [facility] [address] [id number], [place] [address] Jan, [facility] [place] [facility] [address] [id number] [place] [address] Jan, [facility] [place] [facility] [address] [facility] [id number] [place] [address] Jan, [facility] [place] [facility] [address] [facility] [id number] [place] [address] Dec, [facility] [place] [facility] [address] [id number] [place] [address] Dec, [facility] [place] [facility] [address] [id number] [place] [address] Dec, [facility] [place] [facility] [address] [id number] [place] [address] Dec, [facility] [place] [facility] [address] [id number] [place] [address] Dec, [facility] [place] [facility] [address] [id number] [place] [address] Dec, [facility] [place] [facility] [address] [id number] [place] [address] Dec, [facility] [place] [facility] [address] [id number] [place] [address] Dec, [facility] [place] [facility] [address] [id number] [place] [address] Dec, [facility] [place] [facility] [address] [id number] [place] [address] Dec, [facility] [place] [facility] [address] [id number] [place] [address] Dec, [facility] [place] [facility] [address] [id number] [place] [address] Nov, [facility] [place] [facility] [address] [id number] [place] [address] Nov, [facility] [place] [facility] [address] [id number] [place] [address] Nov, [facility] [place] [facility] [address] [id number] [place] [address] Nov, [facility] [place] [facility] [address] [id number] [place] [address] Nov, [facility] [place] [facility] [address] [id number] [place] [address] Oct, [facility] [address] [id number] [place] [address] Oct, [facility] [place] [facility] [address] [id number] [place] [address] Sep, [facility] [address] [id number] [place] [address] Aug, [facility] [place] [facility] [address] [id number] [place] [address] Aug, [facility] [address] [id number] [place] [address] Aug, [facility] [address] [id number] [place] [address] Aug, [facility] [address] [id number] [place] [address] Jul, [facility] [place] [facility] [address] [id number] [place] [address] Jul, [facility] [place] [facility] [address] [id number] [place] [address] June, [facility] [place] [facility] [address] [id number] [place] [address] June, [facility] [place] [facility] [address] [id number] [place] [address] June, [facility] [place] [facility] [address] [id number] [address] May, [facility] [place] [facility] [address] [id number] [place] [address] May, [facility] [place] [facility] [address] [id number] [place] [address] May, [facility] [place] [facility] [address] [id number] [place] [address] Apr, [facility] [place] [facility] [address] [id number] [place] [address] 18 Apr, 2012 [facility] [address] [id number] [place] [address] 15 Apr, 2012 [facility] [place] [facility] [address] [id number] [place] [address] 14 Apr, 2012 [facility] [address] [id number] [place] [address] 12 Apr, 2012 [facility] [place] [facility] [address] [id number] [place] [address] 27 Apr, 2012 [facility] [place] [facility] [address] [id number] [place] [address] Apr, [facility] [place] [facility] [address] [id number] [place] [address] Apr, [facility] [place] [facility] [address] [id number] [place] [address] Apr, [facility] [address] [id number] [place] [address] Apr, [facility] [place] [facility] [address] [facility] [id number] [place] [address] Apr, [facility] [place] [facility] [address] [facility] [id number] [place] [address] Apr, [facility] [place] [facility] [address] [facility] [id number] [place] [address] Apr, [facility] [place] [facility] [address] [id number] [place] [address] Mar, [facility] [place] [facility] [address] [id number] [place] [address] Mar, [facility] [place] [facility] [address] [id number] [place] [address] 16 Mar, 2012 [facility] [place] [facility] [address] [facility] [id number] [place] [address] Mar, [facility] [address] [id number] [place] [address] Mar, [facility] [place] [facility] [address] [id number] [place] [address] Jan, [facility] [address] [id number] [place] [address] Jan, [facility] [place] [facility] [address] [id number] [place] [address] Jan, [facility] [address] [id number] [place] [address] Jan, [facility] [address] [id number] [place] [address] 14 Jan, 2012 [facility] [address] [id number] [place] [address] Jan, [facility] [place] [facility] [address] [id number] [place] [address] Jan, [facility] [place] [facility] [address] [id number] [place] [address] Jan, [facility] [place] [facility] [address] [id number] [place] [address] Jan, [facility] [place] [facility] [address] [id number], [place] [address] Jan, [facility] [place] [facility] [address] [id number], [place] [address] Jan, [facility] [place] [facility] [address] [id number] [place] [address] Jan, [facility] [place] [facility] [address] [id number] [place] [address] 04 Jan, 2012 [facility] [place] [facility] [address] [id number] [place] [address] Jan, [facility] [place] [facility] [address] [id number] [place] [address] 26 Jan, 2012 [facility] [place] [facility] [address] [id number] [place] [address] 26 Jan, 2012 [facility] [place] [facility] [address] [id number] [place] [address] 19 Jan, 2012 [facility] [place] [facility] [address] [id number] [place] [address] 19 Jan, 2012 [facility] [place] [facility] [address] [id number] [place] [address] 15 Jan, 2012 [facility] [place] [facility] [address] [id number] [place] [address] 15 Jan, 2012 [facility] [place] [facility] [address] [id number] [place] [address] 14 Jan, 2012 [facility] [place] [facility] [address] [id number] [place] [address] 14 Jan, 2012 [facility] [place] [facility] [address] [id number] [place] [address] 14 Jan, 2012 [facility] [place] [facility] [address] [id number] [place] [address] 14 Jan, 2012 [facility] [place] [facility] [address] [facility] [id number] [place] [address] 07 Jan, 2012 [facility] [place] [facility] [address] [id number] [place] [address] 07 Jan, 2012 [facility] [place] [facility] [address] [id number], [place] [address] 16 Dec, 2011 [facility] [place] [facility] [address] [id number] [place] [address] 16 Dec, 2011 [facility] [place] [facility] [address] [facility] [id number] [place] [address] 13 Sep2011 [facility] [place] [facility] [address] [id number], [place] [address] 13 Nov, 2011 [facility] [place] [facility] [address] [id number] [place] [address] 13 Nov, 2011 [facility] [place] [facility] [address] [id number] [place] [address] Oct, [facility] [place] [facility] [address] [id number] [place] [address] Sep, [facility] [place] [facility] [address] [id number] [place] [address] Sep, [facility] [address] [id number] [place] [address] Aug, [facility] [address] [id number] [place] [address] Aug, [facility] [address] [id number] [place] [address] Aug, [facility] [address] [id number] [place] [address] Aug, [facility] [address] [id number] [place] [address] June, [facility] [address] [id number] [place] [address] June, [facility] [place] [facility] [address] [id number] [place] [address] May, [facility] [place] [facility] [address] [id number] [place] [address] Apr, [facility] [place] [facility] [address] [id number] [place] [address] Apr, [facility] [place] [facility] [address] [id number] [place] [address] Apr, [facility] [place] [facility] [address] [id number] [place] [address] Apr, [facility] [place] [facility] [address] [id number] [place] [address] Apr, [facility] [address] [id number] [place] [address] Apr, [facility] [place] [facility] [address] [id number] [place] [address] Mar, [facility] [place] [facility] [address] [id number] [place] [address] Mar, [facility] [place] [facility] [address] [id number] [place] [address] Mar, [facility] [address] [id number] [place] [address] Jan, [facility] [place] [facility] [address] [id number] [place] [address] Jan, [facility] [address] [id number] [place] [address] Jan, [facility] [place] [facility] [address] [id number] [place] [address] Jan, [facility] [place] [facility] [address] [id number] [place] [address] Jan, [facility] [place] [facility] [address] [facility] [id number] [place] [address] Jan, [facility] [place] [facility] [address] [id number] [place] [address] Jan, [facility] [place] [facility] [address] [id number], [place] [address] Dec, [facility] [place] [facility] [address] [id number] [place] [address] Dec, [facility] [place] [facility] [address] [id number] [place] [address] Nov, [facility] [place] [facility] [address] [id number] [place] [address] Nov, [facility] [place] [facility] [address] [id number] [place] [address] 12 Nov, 2010 [facility] [address] [id number] [place] [address] 12 Nov, 2010 [facility] [place] [facility] [address] [id number] [place] [address] 12 Oct, 2010 [facility] [place] [facility] [address] [id number] [place] [address] Sep, [facility] [place] [facility] [address] [id number] [place] [address] Mar, [facility] [place] [facility] [address] [id number] [place] [address] Jan, [facility] [place] [facility] [address] [id number] [place] [address] Dec, [facility] [place] [facility] [address] [id number] [place] [address] Dec, [facility] [place] [facility] [address] [id number] [place] [address] Dec, [facility] [place] [facility] [address] [id number] [place] [address] Dec, [facility] [place] [facility] [address] [id number] [place] [address] 26 Nov, 2009 [facility] [place] [facility] [address] [id number] [place] [address] 15 Nov, 2009 [facility] [place] [facility] [address] [id number] [place] [address] 14 Nov, 2009 [facility] [place] [facility] [address] [id number] [place] [address] 14 Nov, 2009 [facility] [place] [facility] [address] [id number] [place] [address] 13 Oct, 2009 [facility] [place] [facility] [address] [id number] [place] [address] Jul, [facility] [id number] [place] [address] June, [facility] [id number], [place] [address] June, [facility] [id number] [address] Apr, [facility] [id number], [place] [address] Mar, [facility] [id number] [address] Jan, [facility] [id number] [place] [address] Jan, [facility] [id number] [address] Dec, [facility] [address] [address] Dec, [facility] [address] [address] Dec, [facility] [address], [place] [address] Dec, [facility] [address] [place] [address] Nov, [facility] [address] [place] [address] Jul, [facility] [id number] [address] June, IMMUNIZATIONS No Known Immunizations SOCIAL HISTORY Never Assessed REASON FOR VISIT EMR-[facility] PLAN OF CARE VITAL SIGNS MEDICATIONS Unknown Medications RESULTS No Results PROCEDURES No Known procedures INSTRUCTIONS MEDICATIONS ADMINISTERED No Known Medications MEDICAL (GENERAL) HISTORY Type Description Date Medical History hypertension Medical History sleep apnea-did not tolerate CPAP Medical History oxygen dependent at [facility] Medical History colonic polyps Medical History [...] deep vessels of lower extremity Surgical History cholecystectomy Surgical History hammer toe [...]
--- OUTSIDE RECORDS SUMMARY | 2018-08-23 17:01 | XMS REPORT ---
Author Author Migration, Doctor Organization [facility] Address Unknown Phone Unavailable Care Team Providers Care Night Supervisor Name Role Phone Migration, Doctor Unavailable Unavailable PROBLEMS Type Condition ICD9-CM Code VCN01-TY Code Onset Dates Condition Status SNOMED Code Problem Pulmonary asbestosis J61 Active 07620980 Problem Renal cyst, left N28.1 Active 32106847 Problem Left ventricular diastolic dysfunction I51.9 Active 932013153 Problem Urge incontinence N39.41 Active 848490100 Problem Anxiety F41.9 Active 36580338 Problem Low back pain M54.5 Active 656663649 Problem Age-related osteoporosis without current pathological fracture M81.0 Active 96320570 Problem History of diverticulitis Z87.19 Active [id number] Problem Allergic rhinitis, unspecified allergic rhinitis type J30.9 Active 86166342 Problem Nephrolithiasis N20.0 Active 17394705 Problem Nocturnal hypoxia G47.34 Active 539974128 Problem Psoriasis L40.9 Active 8374191 Problem Essential hypertension I10 Active 91846354 Problem Chronic gout, unspecified cause, unspecified site M1A.9XX0 Active 82570084 Problem Esophageal stricture K22.2 Active 81067202 Problem Obstructive sleep apnea syndrome G47.33 Active 22507223 Problem History of weight loss surgery Z98.84 Active 202174075 Problem 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 Active 07121490 Problem Chronic prescription opiate use Z79.899 Active 597662141 Problem Moderate episode of recurrent major depressive disorder F33.1 Active 729521750 Problem Chronic obstructive pulmonary disease, unspecified COPD type J44.9 Active 67820216 Problem Primary insomnia F51.01 Active 231153480 Problem Neuropathy G62.9 Active 431827396 Problem Cervicalgia M54.2 Active 6753951422655 Problem Hyperlipidemia, unspecified E78.5 Active 79611144 Problem Benign prostatic hyperplasia, presence of lower urinary tract symptoms unspecified, unspecified morphology N40.0 Active 236275520 Problem Acute right-sided low back pain with right-sided sciatica M54.41 Active 410234834 Problem Erectile dysfunction due to diseases classified elsewhere N52.1 Active 247446281 Problem Hammertoe of left foot M20.42 Active 076628134 ALLERGIES No Information ENCOUNTERS Encounter Location Date Diagnosis [place] [id number] [place] [address] Jul, [place] [id number] [place] [address] June, [place] [address] [address] May, Primary insomnia F51.01 [place] [address] [address] May, Morbid obesity E66.01 ; Moderate episode of recurrent major depressive disorder F33.1 and Neuropathy G62.9 [place] [address] [address] May, Onychomycosis B35.1 ; Neuropathy G62.9 and Closed nondisplaced fracture of metatarsal bone of left foot, unspecified metatarsal, initial encounter S92.302A [place] [address] [address] May, [place] [id number] [place] [address] Apr, Moderate episode of recurrent major depressive disorder F33.1 ; Morbid obesity E66.01 ; Hyperlipidemia, unspecified E78.5 ; Primary insomnia F51.01 and Low back pain M54.5 [place] [id number] [place] [address] Apr, Primary insomnia F51.01 [place] [id number] [place] [address] 28 Apr, 2018 Anxiety F41.9 [place] [id number] [place] [address] 15 Apr, 2018 Low back pain M54.5 [facility] [address] [place] [address] Apr, Anxiety F41.9 [facility] [id number] [place] [address] Mar, Moderate episode of recurrent major depressive disorder F33.1 ; BMI 50.0-59.9, adult Z68.43 ; Anxiety F41.9 and Chronic prescription opiate use Z79.899 [place] [id number] [place] [address] Mar, Onychomycosis B35.1 ; Neuropathy G62.9 and Impaired circulation I99.9 [place] [id number] [place] [address] Mar, Low back pain M54.5 [place] [id number] [place] [address] Mar, Anxiety F41.9 [place] [id number] [place] [address] Jan, BMI 50.0-59.9, adult Z68.43 ; Chronic obstructive pulmonary disease, unspecified COPD type J44.9 ; Low back pain M54.5 and Moderate episode of recurrent major depressive disorder F33.1 [place] [address] [place] [address] Jan, [place] [id number] [place] [address] Jan, [place] [id number] [place] [address] Dec, Anxiety F41.9 [place] [id number] [place] [address] Dec, [place] [address] [place] [address] Dec, Anxiety F41.9 [place] [id number] [address] Dec, [place] [id number] [place] [address] Dec, Encounter for immunization Z23 [facility] [id number] [place] [address] Dec, [place] [id number] [place] [address] Dec, Hammertoe of left foot M20.42 ; Edema of left foot R60.0 and Onychomycosis B35.1 [facility] [place] [id number] [place] [address] Nov, BMI 50.0-59.9, adult Z68.43 [place] [id number] [place] [address] Nov, [place] [id number] [place] [address] Nov, [place] [id number] [place] [address] Nov, Anxiety F41.9 [place] [id number] [place] [address] Oct, [place] [id number] [place] [address] Oct, [place] [id number] [place] [address] 18 Oct, 2017 BMI 45.0-49.9, adult Z68.42 ; Essential hypertension I10 ; Hyperlipidemia, unspecified E78.5 ; Anxiety F41.9 ; Obstructive sleep apnea syndrome G47.33 ; Moderate episode of recurrent major depressive disorder F33.1 ; Left ventricular diastolic dysfunction I51.9 ; Acute pain of right shoulder M25.511 ; Pain of left foot M79.672 and Pain in right foot M79.671 [place] [id number] [place] [address] Oct, Anxiety F41.9 [facility] [id number] [place] [address] Sep, Left foot pain M79.672 [facility] [id number] [place] [address] Sep, [facility] [id number] [place] [address] Sep, Anxiety F41.9 [facility] [id number] [place] [address] Sep, [facility] [id number] [place] [address] Aug, [facility] [id number] [place] [address] Aug, [facility] [id number] [place] [address] Aug, Anxiety F41.9 [facility] [id number] [place] [address] Aug, [facility] [id number] [place] [address] Jul, [facility] [id number] [place] [address] Jul, Anxiety F41.9 [facility] [id number] [place] [address] June, Anxiety F41.9 [facility] [id number] [place] [address] June, [facility] [id number] [place] [address] June, Low back pain M54.5 ; Chronic prescription opiate use Z79.899 ; Candidal intertrigo B37.2 ; Urge incontinence N39.41 ; Essential hypertension I10 ; Moderate episode of recurrent major depressive disorder F33.1 ; Age-related osteoporosis without current pathological fracture M81.0 and BMI 45.0-49.9, adult Z68.42 [facility] [id number] [place] [address] June, [facility] [id number] [place] [address] May, Anxiety F41.9 [facility] [address] [address] May, [facility] [address] [address] May, [facility] [id number] [place] [address] Apr, Anxiety F41.9 [facility] [address] [address] Apr, [facility] [id number] [place] [address] Apr, Low back pain M54.5 [facility] [id number] [place] [address] Apr, [facility] [id number] [place] [address] Apr, [facility] [id number] [place] [address] Apr, Anxiety F41.9 [facility] [id number] [place] [address] Apr, Right groin pain R10.31 [facility] [id number] [place] [address] Mar, [facility] [id number] [place] [address] Mar, [facility] [address] [place] [address] Mar, Anxiety F41.9 [facility] [id number] [place] [address] Mar, Low back pain M54.5 [facility] [id number] [place] [address] Mar, Right groin pain R10.31 ; Low back pain M54.5 and BMI 45.0-49.9, adult Z68.42 [facility] [id number] [place] [address] Mar, [facility] [id number] [place] [address] Mar, [facility] [id number] [place] [address] Mar, [facility] [id number] [place] [address] Mar, [facility] [id number] [place] [address] Mar, Cough R05 ; Pneumonia of right lower lobe due to infectious organism J18.1 and Abnormal chest x-ray R93.8 [place] [id number] [place] [address] Mar, [facility] [id number] [place] [address] Mar, [facility] [id number] [place] [address] Jan, Anxiety F41.9 [facility] [id number] [place] [address] Jan, [facility] [address] [place] [address] Jan, Moderate episode of recurrent major depressive disorder F33.1 [facility] [id number] [place] [address] Jan, Subacromial bursitis of right shoulder joint M75.51 ; Shortness of breath on exertion R06.02 and BMI 45.0-49.9, adult Z68.42 [facility] [id number] [place] [address] Dec, Anxiety F41.9 [facility] [address] [address] Dec, [facility] [address] [address] Dec, Low back pain M54.5 [facility] [id number] [place] [address] Oct, Low back pain M54.5 [facility] [id number] [place] [address] Sep, [facility] [id number] [place] [address] Sep, Erectile dysfunction due to diseases classified elsewhere N52.1 [facility] [id number] [place] [address] Sep, Erectile dysfunction due to diseases classified elsewhere N52.1 [facility] [id number] [place] [address] Sep, [facility] [id number] [place] [address] Sep, Erectile dysfunction due to diseases classified elsewhere N52.1 [facility] [id number] [place] [address] Sep, Low back pain M54.5 and Anxiety F41.9 [facility] [id number] [place] [address] Aug, Acute allergic rhinitis J30.9 [facility] [id number] [place] [address] Aug, [facility] [address] [address] Aug, Anxiety F41.9 [facility] [id number] [place] [address] Jul, Low back pain M54.5 ; Chronic prescription opiate use Z79.899 and Essential hypertension I10 [facility] [id number] [place] [address] Jul, Anxiety F41.9 and Low back pain M54.5 [facility] [id number] [place] [address] June, [facility] [id number] [place] [address] June, Anxiety F41.9 [facility] [id number] [place] [address] May, Low back pain M54.5 [facility] [id number] [place] [address] May, [facility] [id number] [place] [address] May, Anxiety F41.9 [facility] [id number] [place] [address] Apr, [facility] [id number] [place] [address] Apr, Low back pain M54.5 [facility] [id number] [place] [address] Apr, Moderate episode of recurrent major depressive disorder F33.1 [facility] [address] [place] [address] Apr, Anxiety F41.9 [place] [address] [place] [address] Apr, Low back pain M54.5 [place] [id number] [place] [address] 15 Apr, 2016 Elevated alkaline phosphatase level R74.8 [place] [id number] [place] [address] 10 Apr, 2016 Alkaline phosphatase elevation R74.8 [place] [id number] [place] [address] 06 Apr, 2016 Anxiety F41.9 [place] [address] [address] Apr, Low back pain M54.5 [place] [id number] [place] [address] Apr, History of weight loss surgery Z98.84 ; Encounter for hepatitis C screening test for low risk patient Z11.59 ; History of herpes genitalis Z86.19 ; Essential hypertension I10 ; Hyperlipidemia, unspecified E78.5 ; Exposure to STD Z20.2 and Benign prostatic hyperplasia, presence of lower urinary tract symptoms unspecified, unspecified morphology N40.0 [place] [id number] [place] [address] Apr, [place] [id number] [place] [address] Mar, [place] [id number] [place] [address] Mar, [place] [id number] [place] [address] Mar, [place] [id number] [place] [address] Mar, Acute right-sided low back pain with right-sided sciatica M54.41 [place] [id number] [place] [address] Mar, Low back pain M54.5 [facility] [address] [place] [address] Mar, Muscle strain of chest wall, initial encounter S29.011A ; Muscle strain of right thigh, initial encounter S76.911A and Acute non-recurrent maxillary sinusitis J01.00 [place] [address] [address] Mar, Benign prostatic hyperplasia, presence of lower urinary tract symptoms unspecified, unspecified morphology N40.0 [place] [id number] [place] [address] Jan, Low back pain M54.5 [facility] [id number] [place] [address] Jan, Low back pain M54.5 ; Essential hypertension I10 ; Hyperlipidemia, unspecified E78.5 ; Anxiety F41.9 ; Moderate episode of recurrent major depressive disorder F33.1 ; Primary insomnia F51.01 ; Exposure to STD Z20.2 ; Encounter for hepatitis C screening test for low risk patient Z11.59 and History of herpes genitalis Z86.19 [place] [id number] [place] [address] Dec, [place] [id number] [place] [address] Nov, [place] [id number] [place] [address] Nov, Anxiety F41.9 ; Cervicalgia M54.2 ; Moderate episode of recurrent major depressive disorder F33.1 and Encounter for immunization Z23 [place] [id number] [place] [address] Oct, [place] [id number] [place] [address] Oct, [place] [address] [place] [address] 16 Nov, 2015 [facility] [id number] [place] [address] Oct, [facility] [id number] [place] [address] Sep, [facility] [id number] [place] [address] Aug, Low back pain M54.5 ; Anxiety F41.9 ; Primary insomnia F51.01 and Chronic prescription opiate use Z79.899 [facility] [id number] [place] [address] Jul, [facility] [id number] [place] [address] Jul, [facility] [id number] [place] [address] Jul, [facility] [id number] [place] [address] Jul, [facility] [id number] [place] [address] Jul, [facility] [id number] [place] [address] June, [facility] [id number] [place] [address] June, [facility] [id number] [place] [address] June, [facility] [id number] [place] [address] June, [facility] [id number] [place] [address] May, Preoperative cardiovascular examination Z01.810 [facility] [id number] [place] [address] May, [facility] [address] [address] Apr, [facility] [id number] [place] [address] Apr, Osteoarthritis of right knee M17.9 [facility] [address] [place] [address] 30 May, 2015 [facility] [id number] [place] [address] 16 May, 2015 [facility] [address] [place] [address] Apr, [facility] [id number] [place] [address] Apr, [facility] [id number] [place] [address] 08 May, 2015 History of excessive cerumen Z78.9 ; Obstructive sleep apnea syndrome G47.33 ; History of diverticulitis Z87.19 and Nephrolithiasis N20.0 [facility] [address] [place] [address] Apr, [facility] [address] [address] Apr, Abdominal pain R10.9 [facility] [id number] [place] [address] Apr, [facility] [address] [place] [address] Apr, Osteoarthritis of right knee M17.9 [facility] [address] [place] [address] Mar, [facility] [address] [place] [address] Mar, [facility] [id number] [place] [address] 14 Mar, 2015 [facility] [id number] [place] [address] Mar, [facility] [id number] [place] [address] 13 Mar, 2015 Pyelonephritis N12 ; Left-sided thoracic back pain M54.6 ; Hematuria, unspecified R31.9 and Kidney stone N20.0 [facility] [id number] [place] [id number] 12 Mar, 2015 History of weight loss surgery Z98.84 [facility] [address] [id number] 07 Mar, 2015 History of weight loss surgery Z98.84 and Hyperlipidemia, unspecified E78.5 [facility] [id number] [place] [phone] Mar, Low back pain M54.5 ; Chronic prescription opiate use Z79.899 ; Hyperlipidemia, unspecified E78.5 ; Spasm of back muscles M62.830 and History of weight loss surgery Z98.84 [facility] [id number] [place] [phone] Jan, [facility] [id number] [place] [phone] Jan, [facility] [id number] [place] [phone] Jan, [facility] [id number] [place] [phone] Dec, [facility] [id number] [place] [id number] Dec, [facility] [id number] [place] [phone] Dec, [facility] [id number] [place] [phone] Nov, [facility] [id number] [place] [phone] Nov, Obstructive sleep apnea syndrome G47.33 and Pharyngoesophageal dysphagia R13.14 [facility] [id number] [place] [phone] Nov, [facility] [id number] [place] [phone] Nov, [facility] [id number] [place] [phone] Nov, [facility] [id number] [place] [id number] Oct, Dental examination V72.2 [facility] [id number] [place] [phone] Oct, [facility] [id number] [place] [phone] Oct, [facility] [id number] [place] [phone] Oct, [facility] [id number] [place] [phone] Oct, [facility] [id number] [place] [id number] Oct, BPH (benign prostatic hyperplasia) 600.00 and Urinary frequency 788.41 [facility] [id number] [place] [phone] Oct, [facility] [id number] [place] [phone] Oct, [facility] [address] [id number] [place] [id number] Oct, [facility] [id number] [place] [address] Sep, Cerumen impaction 380.4 ; Cerumen debris on tympanic membrane 380.4 ; Psoriasis 696.1 and MICKY (secretory otitis media) 381.4 [facility] [id number] [place] [id number] Sep, Dental examination V72.2 [facility] [id number] [place] [address] Sep, Fatigue 780.79 ; Irritable bowel syndrome 564.1 ; Overweight 278.02 ; Poor sleep V69.4 ; Shaking spells 781.0 and Broken tooth 873.63 [facility] [id number] [place] [address] Sep, [facility] [id number] [place] [address] Sep, [facility] [id number] [place] [address] Aug, [facility] [id number] [place] [address] Jul, [facility] [id number] [place] [id number] Jul, [facility] [id number] [place] [address] Jul, [facility] [id number] [place] [address] Jul, [facility] [id number] [place] [address] June, Arthritis of knee, right 716.96 [facility] [id number] [place] [address] June, [facility] [id number] [place] [address] June, Elevated blood pressure reading without diagnosis of hypertension 796.2 [facility] [id number] [place] [id number] June, [facility] [place] [facility] [address] [id number] [place] [address] June, [facility] [place] [facility] [address] [id number] [place] [address] June, [facility] [place] [facility] [address] [id number] [place] [address] June, [facility] [place] [facility] [address] [id number] [place] [address] May, [facility] [place] [facility] [address] [id number] [place] [address] May, [facility] [place] [facility] [address] [id number] [place] [address] Apr, [facility] [place] [facility] [address] [id number] [place] [address] Apr, [facility] [place] [facility] [address] [id number] [place] [address] Apr, [facility] [place] [facility] [address] [id number] [place] [address] Apr, [facility] [place] [facility] [address] [id number] [place] [address] Apr, [facility] [place] [facility] [address] [id number] [place] [address] Apr, [facility] [place] [facility] [address] [id number] [place] [address] Apr, [facility] [place] [facility] [address] [id number] [place] [address] Apr, [facility] [place] [facility] [address] [id number] [place] [address] Apr, [facility] [place] [facility] [address] [id number] [place] [address] Apr, [facility] [place] [facility] [address] [id number] [place] [address] Apr, 2014 [facility] [place] [facility] [address] [id number] [place] [address] Apr, 2014 [facility] [place] [facility] [address] [id number] [place] [address] 24 Apr, 2014 [facility] [place] [facility] [address] [id number] [place] [address] 24 Apr, 2014 [facility] [place] [facility] [address] [id number] [place] [address] 23 Apr, 2014 [facility] [place] [facility] [address] [id number] [place] [address] 23 Apr, 2014 [facility] [place] [facility] [address] [facility] [id number] [place] [address] 20 Apr, 2014 [facility] [place] [facility] [address] [facility] [id number] [place] [address] 20 Apr, 2014 [facility] [place] [facility] [address] [facility] [id number] [place] [address] 18 Apr, 2014 [facility] [place] [facility] [address] [facility] [id number] [place] [address] 18 Apr, 2014 [facility] [place] [facility] [address] [facility] [id number] [place] [address] 13 Apr, 2014 [facility] [place] [facility] [address] [facility] [id number] [place] [address] 13 Apr, 2014 [facility] [place] [facility] [address] [facility] [id number] [place] [address] 13 Apr, 2014 [facility] [place] [facility] [address] [id number] [place] [address] 13 Apr, 2014 [facility] [place] [facility] [address] [facility] [id number] [place] [address] 12 Apr, 2014 [facility] [place] [facility] [address] [facility] [id number] [place] [address] Apr, 2014 [facility] [place] [facility] [address] [id number] [place] [address] Apr, 2014 [facility] [place] [facility] [address] [id number] [place] [address] Apr, 2014 [facility] [place] [facility] [address] [id number] [place] [address] Apr, 2014 [facility] [place] [facility] [address] [id number] [place] [address] Apr, 2014 [facility] [place] [facility] [address] [id number] [place] [address] Apr, 2014 [facility] [place] [facility] [address] [facility] [id number] [place] [address] Apr, 2014 [facility] [place] [facility] [address] [facility] [id number] [place] [address] Apr, 2014 [facility] [place] [facility] [address] [facility] [id number] [place] [address] Mar, [facility] [place] [facility] [address] [facility] [id number] [place] [address] Mar, [facility] [place] [facility] [address] [facility] [id number] [place] [address] Mar, [facility] [place] [facility] [address] [facility] [id number] [place] [address] Mar, [facility] [place] [facility] [address] [id number] [place] [address] Mar, [facility] [place] [facility] [address] [facility] [id number] [place] [address] Mar, [facility] [place] [facility] [address] [facility] [id number] [place] [address] Mar, [facility] [place] [facility] [address] [facility] [id number] [place] [address] Mar, [facility] [place] [facility] [address] [id number] [place] [address] Mar, [facility] [place] [facility] [address] [id number] [place] [address] Mar, [facility] [place] [facility] [address] [facility] [id number] [place] [address] Jan, [facility] [place] [facility] [address] [id number] [place] [address] Jan, [facility] [place] [facility] [address] [id number] [place] [address] Jan, [facility] [place] [facility] [address] [id number] [place] [address] Jan, [facility] [place] [facility] [address] [id number] [place] [address] Jan, [facility] [place] [facility] [address] [id number] [place] [address] Jan, [facility] [place] [facility] [address] [id number] [place] [address] Jan, [facility] [place] [facility] [address] [id number] [place] [address] Jan, [facility] [place] [facility] [address] [id number] [place] [address] Jan, [facility] [place] [facility] [address] [id number] [address] Jan, [facility] [place] [facility] [address] [id number] [place] [address] Jan, [facility] [place] [facility] [address] [id number] [place] [address] Jan, [facility] [place] [facility] [address] [id number] [place] [address] Dec, [facility] [place] [facility] [address] [id number] [place] [address] Dec, [facility] [place] [facility] [address] [id number] [place] [address] Dec, [facility] [place] [facility] [address] [id number] [place] [address] Dec, [facility] [place] [facility] [address] [id number] [place] [address] Dec, [facility] [place] [facility] [address] [id number] [place] [address] Dec, [facility] [place] [facility] [address] [id number] [place] [address] Dec, [facility] [place] [facility] [address] [id number] [place] [address] Dec, [facility] [place] [facility] [address] [id number] [place] [address] Dec, [facility] [place] [facility] [address] [id number] [place] [address] Dec, [facility] [place] [facility] [address] [id number] [place] [address] Nov, [facility] [place] [facility] [address] [id number] [place] [address] Nov, [facility] [place] [facility] [address] [id number] [place] [address] Nov, [facility] [place] [facility] [address] [id number] [place] [address] Nov, [facility] [place] [facility] [address] [id number] [place] [address] Nov, [facility] [place] [facility] [address] [id number] [place] [address] Nov, [facility] [place] [facility] [address] [id number] [place] [address] Nov, [facility] [place] [facility] [address] [id number] [place] [address] Nov, [facility] [place] [facility] [address] [id number] [place] [address] Nov, [facility] [place] [facility] [address] [id number] [place] [address] Nov, [facility] [place] [facility] [address] [id number] [place] [address] Nov, [facility] [place] [facility] [address] [id number] [place] [address] Nov, [facility] [place] [facility] [address] [id number] [place] [address] Nov, [facility] [place] [facility] [address] [id number] [place] [address] Nov, [facility] [place] [facility] [address] [id number] [place] [address] Nov, [facility] [place] [facility] [address] [id number] [place] [address] Nov, [facility] [place] [facility] [address] [id number] [place] [address] Nov, [facility] [place] [facility] [address] [id number] [place] [address] Nov, [facility] [place] [facility] [address] [id number] [address] Nov, [facility] [place] [facility] [address] [id number] [place] [address] Nov, [facility] [place] [facility] [address] [id number] [place] [address] Oct, [facility] [place] [facility] [address] [id number] [place] [address] Oct, [facility] [place] [facility] [address] [id number] [place] [address] Oct, [facility] [place] [facility] [address] [id number] [place] [address] Oct, [facility] [place] [facility] [address] [id number] [place] [address] Oct, [facility] [place] [facility] [address] [id number] [place] [address] Oct, [facility] [place] [facility] [address] [id number] [place] [address] Oct, [facility] [place] [facility] [address] [id number] [place] [address] Oct, [facility] [place] [facility] [address] [id number] [place] [address] Oct, [facility] [place] [facility] [address] [id number] [place] [address] Oct, [facility] [place] [facility] [address] [id number] [place] [address] Sep, [facility] [place] [facility] [address] [id number] [place] [address] Sep, [facility] [place] [facility] [address] [id number] [place] [address] Sep, [facility] [place] [facility] [address] [id number] [place] [address] Sep, [facility] [place] [facility] [address] [id number] [place] [address] Sep, [facility] [place] [facility] [address] [id number] [place] [address] Sep, [facility] [place] [facility] [address] [id number] [place] [address] Sep, [facility] [place] [facility] [address] [id number] [place] [address] Sep, [facility] [place] [facility] [address] [id number] [place] [address] Sep, [facility] [place] [facility] [address] [id number] [place] [address] Sep, [facility] [place] [facility] [address] [id number] [place] [address] Sep, [facility] [place] [facility] [address] [id number] [place] [address] Sep, [facility] [place] [facility] [address] [id number] [place] [address] Sep, [facility] [place] [facility] [address] [id number] [place] [address] Sep, [facility] [place] [facility] [address] [id number] [place] [address] Sep, [facility] [place] [facility] [address] [id number] [place] [address] Sep, [facility] [place] [facility] [address] [id number] [place] [address] Sep, [facility] [place] [facility] [address] [id number] [place] [address] Sep, [facility] [place] [facility] [address] [id number] [place] [address] Sep, [facility] [place] [facility] [address] [id number] [place] [address] Sep, [facility] [place] [facility] [address] [id number] [place] [address] Sep, [facility] [place] [facility] [address] [id number] [place] [address] Sep, [facility] [place] [facility] [address] [id number] [place] [address] Sep, [facility] [place] [facility] [address] [id number] [place] [address] Sep, [facility] [place] [facility] [address] [id number] [place] [address] Sep, [facility] [place] [facility] [address] [id number] [place] [address] Aug, [facility] [place] [facility] [address] [id number] [place] [address] Aug, [facility] [place] [facility] [address] [id number] [place] [address] Aug, [facility] [place] [facility] [address] [id number] [place] [address] Aug, [facility] [place] [facility] [address] [id number] [place] [address] Aug, [facility] [place] [facility] [address] [id number] [place] [address] Aug, [facility] [place] [facility] [address] [id number] [place] [address] Aug, [facility] [place] [facility] [address] [id number] [place] [address] Aug, [facility] [place] [facility] [address] [id number] [place] [address] Aug, [facility] [place] [facility] [address] [id number] [place] [address] Aug, [facility] [place] [facility] [address] [id number] [place] [address] Aug, [facility] [place] [facility] [address] [id number] [place] [address] Aug, [facility] [place] [facility] [address] [id number] [place] [address] Aug, [facility] [place] [facility] [address] [id number] [place] [address] Jul, [facility] [place] [facility] [address] [id number] [place] [address] Jul, [facility] [place] [facility] [address] [id number] [place] [address] Jul, [facility] [place] [facility] [address] [id number] [place] [address] Jul, [facility] [place] [facility] [address] [id number] [place] [address] Jul, [facility] [place] [facility] [address] [id number] [place] [address] Jul, [facility] [place] [facility] [address] [id number] [place] [address] Jul, [facility] [place] [facility] [address] [id number] [place] [address] June, [facility] [place] [facility] [address] [id number] [place] [address] June, [facility] [place] [facility] [address] [id number] [place] [address] June, [facility] [place] [facility] [address] [id number] [place] [address] June, [facility] [place] [facility] [address] [id number] [place] [address] May, [facility] [place] [facility] [address] [id number] [place] [address] May, [facility] [place] [facility] [address] [id number] [place] [address] May, [facility] [place] [facility] [address] [id number] [place] [address] May, [facility] [place] [facility] [address] [id number] [place] [address] May, [facility] [place] [facility] [address] [id number] [place] [address] May, [facility] [place] [facility] [address] [id number] [place] [address] May, [facility] [place] [facility] [address] [id number] [place] [address] May, [facility] [place] [facility] [address] [id number] [place] [address] May, [facility] [place] [facility] [address] [id number] [place] [address] May, [facility] [place] [facility] [address] [id number] [place] [address] Apr, [facility] [place] [facility] [address] [id number] [place] [address] Apr, [facility] [place] [facility] [address] [facility] [id number] [place] [address] Apr, [facility] [place] [facility] [address] [id number] [place] [address] Apr, [facility] [place] [facility] [address] [id number] [place] [address] Apr, [facility] [place] [facility] [address] [facility] [id number] [place] [address] Apr, [facility] [place] [facility] [address] [facility] [id number] [place] [address] Apr, [facility] [place] [facility] [address] [id number] [address] Apr, [facility] [place] [facility] [address] [id number] [place] [address] Apr, [facility] [place] [facility] [address] [id number] [place] [address] Apr, [facility] [place] [facility] [address] [facility] [id number] [place] [address] Mar, [facility] [place] [facility] [address] [id number] [address] Mar, [facility] [address] [id number] [place] [address] Mar, [facility] [address] [id number] [place] [address] Mar, [facility] [address] [facility] [id number] [place] [address] Mar, [facility] [address] [id number] [place] [address] Mar, [facility] [address] [id number] [place] [address] Jan, [facility] [address] [id number] [place] [address] Jan, [facility] [address] [facility] [id number] [place] [address] Jan, [facility] [address] [id number] [place] [address] Jan, [facility] [address] [facility] [id number] [place] [address] Jan, [facility] [address] [facility] [id number] [place] [address] Jan, [facility] [address] [facility] [id number] [place] [address] Jan, [facility] [place] [facility] [address] [id number] [address] Jan, [facility] [place] [facility] [address] [id number] [place] [address] Jan, [facility] [place] [facility] [address] [facility] [id number] [place] [address] Dec, [facility] [place] [facility] [address] [facility] [id number] [place] [address] Dec, [facility] [place] [facility] [address] [id number] [place] [address] Dec, [facility] [place] [facility] [address] [id number] [place] [address] Dec, [facility] [place] [facility] [address] [id number] [place] [address] Dec, [facility] [place] [facility] [address] [id number] [place] [address] Dec, [facility] [place] [facility] [address] [id number] [place] [address] Dec, [facility] [place] [facility] [address] [id number] [place] [address] Dec, [facility] [place] [facility] [address] [id number] [place] [address] Dec, [facility] [place] [facility] [address] [id number] [place] [address] Dec, [facility] [place] [facility] [address] [id number] [place] [address] Dec, [facility] [place] [facility] [address] [id number] [place] [address] Nov, [facility] [place] [facility] [address] [id number] [place] [address] Nov, [facility] [place] [facility] [address] [id number] [place] [address] Nov, [facility] [place] [facility] [address] [id number] [place] [address] Nov, [facility] [place] [facility] [address] [id number] [place] [address] Nov, [facility] [place] [facility] [address] [id number] [place] [address] 11 Oct, 2012 [facility] [place] [facility] [address] [id number] [place] [address] Oct, [facility] [address] [id number] [place] [address] Sep, [facility] [place] [facility] [address] [id number] [place] [address] Aug, [facility] [place] [facility] [address] [id number] [place] [address] Aug, [facility] [place] [facility] [address] [id number] [place] [address] Aug, [facility] [address] [id number] [place] [address] Aug, [facility] [address] [id number] [place] [address] Jul, [facility] [place] [facility] [address] [id number] [place] [address] Jul, [facility] [place] [facility] [address] [id number] [place] [address] June, [facility] [place] [facility] [address] [id number] [place] [address] June, [facility] [place] [facility] [address] [id number] [place] [address] June, [facility] [place] [facility] [address] [id number] [place] [address] May, [facility] [place] [facility] [address] [id number] [address] May, [facility] [place] [facility] [address] [id number] [place] [address] May, [facility] [place] [facility] [address] [id number] [place] [address] Apr, [facility] [place] [facility] [address] [id number] [place] [address] Apr, [facility] [place] [facility] [address] [id number] [place] [address] 15 Apr, 2012 [facility] [address] [id number] [place] [address] 14 Apr, 2012 [facility] [place] [facility] [address] [id number] [place] [address] 12 Apr, 2012 [facility] [address] [id number] [place] [address] 27 Apr, 2012 [facility] [place] [facility] [address] [id number] [place] [address] Apr, [facility] [address] [id number] [place] [address] Apr, [facility] [place] [facility] [address] [id number] [place] [address] Apr, [facility] [address] [id number] [place] [address] Apr, [facility] [address] [id number] [place] [address] Apr, [facility] [place] [facility] [address] [id number] [place] [address] Apr, [facility] [place] [facility] [address] [id number] [place] [address] Apr, [facility] [place] [facility] [address] [id number] [place] [address] Mar, [facility] [place] [facility] [address] [id number] [place] [address] Mar, [facility] [place] [facility] [address] [id number] [place] [address] 16 Mar, 2012 [facility] [place] [facility] [address] [id number] [place] [address] Mar, [facility] [place] [facility] [address] [id number] [place] [address] Mar, [facility] [address] [id number] [place] [address] Jan, [facility] [place] [facility] [address] [id number] [place] [address] Jan, [facility] [place] [facility] [address] [id number] [place] [address] Jan, [facility] [place] [facility] [address] [id number] [place] [address] Jan, [facility] [address] [id number] [place] [address] 14 Jan, 2012 [facility] [place] [facility] [address] [id number] [place] [address] Jan, [facility] [place] [facility] [address] [id number] [place] [address] Jan, [facility] [place] [facility] [address] [id number] [place] [address] Jan, [facility] [place] [facility] [address] [id number] [place] [address] Jan, [facility] [place] [facility] [address] [id number] [place] [address] Jan, [facility] [place] [facility] [address] [id number] [address] Jan, [facility] [place] [facility] [address] [id number] [address] Jan, [facility] [place] [facility] [address] [id number] [place] [address] Jan, [facility] [place] [facility] [address] [id number] [place] [address] Jan, [facility] [place] [facility] [address] [id number] [place] [address] Dec, [facility] [place] [facility] [address] [id number] [place] [address] 26 Jan, 2012 [facility] [place] [facility] [address] [id number] [place] [address] 19 Jan, 2012 [facility] [place] [facility] [address] [id number] [place] [address] 19 Jan, 2012 [facility] [place] [facility] [address] [id number] [place] [address] 15 Jan, 2012 [facility] [place] [facility] [address] [id number] [place] [address] 15 Jan, 2012 [facility] [place] [facility] [address] [id number] [place] [address] 14 Jan, 2012 [facility] [place] [facility] [address] [id number] [place] [address] 14 Jan, 2012 [facility] [place] [facility] [address] [id number] [place] [address] 14 Jan, 2012 [facility] [place] [facility] [address] [id number] [place] [address] 14 Jan, 2012 [facility] [place] [facility] [address] [id number] [place] [address] 07 Jan, 2012 [facility] [place] [facility] [address] [facility] [id number] [place] [address] 07 Jan, 2012 [facility] [place] [facility] [address] [id number] [place] [address] 16 Dec, 2011 [facility] [place] [facility] [address] [id number] [address] 16 Dec, 2011 [facility] [place] [facility] [address] [id number] [place] [address] 13 Sep2011 [facility] [place] [facility] [address] [id number] [place] [address] 13 Sep2011 [facility] [place] [facility] [address] [id number] [address] 13 Nov, 2011 [facility] [place] [facility] [address] [id number] [place] [address] Oct, [facility] [place] [facility] [address] [id number] [place] [address] Sep, [facility] [place] [facility] [address] [id number] [place] [address] Sep, [facility] [place] [facility] [address] [id number] [place] [address] Aug, [facility] [address] [id number] [place] [address] Aug, [facility] [place] [facility] [address] [id number] [place] [address] Aug, [facility] [address] [id number] [place] [address] Aug, [facility] [address] [id number] [place] [address] June, [facility] [place] [facility] [address] [id number] [place] [address] June, [facility] [address] [id number] [place] [address] May, [facility] [place] [facility] [address] [id number] [place] [address] Apr, [facility] [place] [facility] [address] [id number] [place] [address] Apr, [facility] [place] [facility] [address] [id number] [place] [address] Apr, [facility] [place] [facility] [address] [id number] [place] [address] Apr, [facility] [place] [facility] [address] [id number] [place] [address] Apr, [facility] [place] [facility] [address] [id number] [address] Apr, [facility] [address] [id number] [place] [address] Mar, [facility] [place] [facility] [address] [id number] [place] [address] Mar, [facility] [place] [facility] [address] [id number] [place] [address] Mar, [facility] [place] [facility] [address] [id number] [place] [address] Jan, [facility] [place] [facility] [address] [id number] [place] [address] Jan, [facility] [place] [facility] [address] [id number] [place] [address] Jan, [facility] [place] [facility] [address] [id number] [place] [address] Jan, [facility] [place] [facility] [address] [id number] [place] [address] Jan, [facility] [place] [facility] [address] [id number] [place] [address] Jan, [facility] [place] [facility] [address] [id number] [place] [address] Jan, [facility] [place] [facility] [address] [id number] [address] Dec, [facility] [place] [facility] [address] [id number] [place] [address] Dec, [facility] [place] [facility] [address] [id number] [place] [address] Nov, [facility] [place] [facility] [address] [id number] [place] [address] Nov, [facility] [place] [facility] [address] [id number] [place] [address] Nov, [facility] [place] [facility] [address] [id number] [place] [address] 12 Nov, 2010 [facility] [address] [id number] [place] [address] 12 Oct, 2010 [facility] [place] [facility] [address] [id number] [place] [address] Sep, [facility] [place] [facility] [address] [id number] [place] [address] Mar, [facility] [place] [facility] [address] [id number] [place] [address] Jan, [facility] [place] [facility] [address] [id number] [place] [address] Dec, [facility] [place] [facility] [address] [id number] [place] [address] Dec, [facility] [place] [facility] [address] [id number] [place] [address] Dec, [facility] [place] [facility] [address] [id number] [place] [address] Dec, [facility] [place] [facility] [address] [id number] [place] [address] 26 Nov, 2009 [facility] [place] [facility] [address] [id number] [place] [address] 15 Nov, 2009 [facility] [place] [facility] [address] [id number] [place] [address] 14 Nov, 2009 [facility] [place] [facility] [address] [id number] [place] [address] 14 Nov, 2009 [facility] [place] [facility] [address] [id number] [place] [address] 13 Oct, 2009 [facility] [place] [facility] [address] [id number] [place] [address] Jul, [facility] [place] [facility] [address] [id number] [place] [address] June, [facility] [id number] [address] June, [facility] [id number] [address] 17 Apr, 2009 [facility] [id number] [address] Mar, [facility] [id number] [place] [address] Jan, [facility] [id number] [place] [address] Jan, [facility] [id number] [place] [address] Dec, [facility] [id number] [place] [address] Dec, [facility] [id number] [place] [address] Dec, [facility] [id number] [place] [address] Dec, [facility] [id number] [address] Nov, [facility] [id number] [address] Jul, [facility] [address] [address] June, IMMUNIZATIONS No Known Immunizations SOCIAL HISTORY Never Assessed REASON FOR V[place]IT [place] [place] VITAL SIGNS MEDICATIONS Unknown Medications RESULTS No Results PROCEDURES No Known procedures INSTRUCTIONS MEDICATIONS ADMINISTERED No Known Medications MEDICAL (GENERAL) HISTORY Type Description Date Medical History hypertension Medical History sleep apnea-did not tolerate CPAP Medical History oxygen dependent at [facility] Medical History colonic polyps Medical History [...] Surgical History EGD ([facility])-gastritis 10/2009 Surgical History left knee arthroscopy-torn meniscus [...]
--- OUTSIDE RECORDS SUMMARY | 2018-08-23 17:02 | XMS REPORT ---
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 Name Role Phone Migration, Doctor Unavailable Unavailable PROBLEMS Type Condition ICD9-CM Code VWU60-OD Code Onset Dates Condition Status SNOMED Code Problem Pulmonary asbestosis J61 Active 93847970 Problem Renal cyst, left N28.1 Active 33714148 Problem Left ventricular diastolic dysfunction I51.9 Active 815628998 Problem Urge incontinence N39.41 Active 814575751 Problem Anxiety F41.9 Active 43677251 Problem Low back pain M54.5 Active 954717718 Problem Age-related osteoporosis without current pathological fracture M81.0 Active 31966272 Problem History of diverticulitis Z87.19 Active 083523306414656 Problem Allergic rhinitis, unspecified allergic rhinitis type J30.9 Active 66075645 Problem Nephrolithiasis N20.0 Active 54923653 Problem Nocturnal hypoxia G47.34 Active 274597707 Problem Psoriasis L40.9 Active 7207467 Problem Essential hypertension I10 Active 78442415 Problem Chronic gout, unspecified cause, unspecified site M1A.9XX0 Active 93915499 Problem Esophageal stricture K22.2 Active 44288958 Problem Obstructive sleep apnea syndrome G47.33 Active 72293335 Problem History of weight loss surgery Z98.84 Active 971311539 Problem 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 Active 51192692 Problem Chronic prescription opiate use Z79.899 Active 835799957 Problem Moderate episode of recurrent major depressive disorder F33.1 Active 059395173 Problem Chronic obstructive pulmonary disease, unspecified COPD type J44.9 Active 85004154 Problem Primary insomnia F51.01 Active 351395782 Problem Neuropathy G62.9 Active 507473246 Problem Cervicalgia M54.2 Active 5640565384974 Problem Hyperlipidemia, unspecified E78.5 Active 39961717 Problem Benign prostatic hyperplasia, presence of lower urinary tract symptoms unspecified, unspecified morphology N40.0 Active 182981799 Problem Acute right-sided low back pain with right-sided sciatica M54.41 Active 294020677 Problem Erectile dysfunction due to diseases classified elsewhere N52.1 Active 906376550 Problem Hammertoe of left foot M20.42 Active 521987247 ALLERGIES No Information ENCOUNTERS Encounter Location Date Diagnosis [place] [id number] [place] [address] Jul, [place] [id number] [place] [address] June, [place] [address] [address] May, Primary insomnia F51.01 [place] [address] [address] May, Morbid obesity E66.01 ; Moderate episode of recurrent major depressive disorder F33.1 and Neuropathy G62.9 [place] [address] [address] May, Onychomycosis B35.1 ; Neuropathy G62.9 and Closed nondisplaced fracture of metatarsal bone of left foot, unspecified metatarsal, initial encounter S92.302A [place] [address] [address] May, [place] [id number] [place] [address] Apr, Moderate episode of recurrent major depressive disorder F33.1 ; Morbid obesity E66.01 ; Hyperlipidemia, unspecified E78.5 ; Primary insomnia F51.01 and Low back pain M54.5 [place] [id number] [place] [address] Apr, Primary insomnia F51.01 [place] [id number] [place] [address] 28 Apr, 2018 Anxiety F41.9 [place] [id number] [place] [address] 15 Apr, 2018 Low back pain M54.5 [facility] [address] [place] [address] Apr, Anxiety F41.9 [facility] [id number] [place] [address] Mar, Moderate episode of recurrent major depressive disorder F33.1 ; BMI 50.0-59.9, adult Z68.43 ; Anxiety F41.9 and Chronic prescription opiate use Z79.899 [place] [id number] [place] [address] Mar, Onychomycosis B35.1 ; Neuropathy G62.9 and Impaired circulation I99.9 [place] [id number] [place] [address] Mar, Low back pain M54.5 [place] [id number] [place] [address] Mar, Anxiety F41.9 [place] [id number] [place] [address] Jan, BMI 50.0-59.9, adult Z68.43 ; Chronic obstructive pulmonary disease, unspecified COPD type J44.9 ; Low back pain M54.5 and Moderate episode of recurrent major depressive disorder F33.1 [place] [address] [place] [address] Jan, [place] [id number] [place] [address] Jan, [place] [id number] [place] [address] Dec, Anxiety F41.9 [place] [id number] [place] [address] Dec, [place] [id number] [place] [address] Dec, Anxiety F41.9 [place] [id number] [address] Dec, [place] [id number] [place] [address] Dec, Encounter for immunization Z23 [facility] [id number] [place] [address] Dec, [place] [id number] [place] [address] Dec, Hammertoe of left foot M20.42 ; Edema of left foot R60.0 and Onychomycosis B35.1 [facility] [place] [id number] [place] [address] Nov, BMI 50.0-59.9, adult Z68.43 [place] [id number] [place] [address] Nov, [place] [id number] [place] [address] Nov, [place] [id number] [place] [address] Nov, Anxiety F41.9 [place] [id number] [place] [address] Oct, [place] [id number] [place] [address] Oct, [place] [id number] [place] [address] 18 Oct, 2017 BMI 45.0-49.9, adult Z68.42 ; Essential hypertension I10 ; Hyperlipidemia, unspecified E78.5 ; Anxiety F41.9 ; Obstructive sleep apnea syndrome G47.33 ; Moderate episode of recurrent major depressive disorder F33.1 ; Left ventricular diastolic dysfunction I51.9 ; Acute pain of right shoulder M25.511 ; Pain of left foot M79.672 and Pain in right foot M79.671 [place] [id number] [place] [address] Oct, Anxiety F41.9 [facility] [id number] [place] [address] Sep, Left foot pain M79.672 [facility] [id number] [place] [address] Sep, [facility] [id number] [place] [address] Sep, Anxiety F41.9 [facility] [id number] [place] [address] Sep, [facility] [id number] [place] [address] Aug, [facility] [id number] [place] [address] Aug, [facility] [id number] [place] [address] Aug, Anxiety F41.9 [facility] [id number] [place] [address] Aug, [facility] [id number] [place] [address] Jul, [facility] [id number] [place] [address] Jul, Anxiety F41.9 [facility] [id number] [place] [address] June, Anxiety F41.9 [facility] [id number] [place] [address] June, [facility] [id number] [place] [address] June, Low back pain M54.5 ; Chronic prescription opiate use Z79.899 ; Candidal intertrigo B37.2 ; Urge incontinence N39.41 ; Essential hypertension I10 ; Moderate episode of recurrent major depressive disorder F33.1 ; Age-related osteoporosis without current pathological fracture M81.0 and BMI 45.0-49.9, adult Z68.42 [facility] [id number] [place] [address] June, [facility] [id number] [place] [address] May, Anxiety F41.9 [facility] [address] [address] May, [facility] [address] [address] May, [facility] [id number] [place] [address] Apr, Anxiety F41.9 [facility] [address] [address] Apr, [facility] [id number] [place] [address] Apr, Low back pain M54.5 [facility] [id number] [place] [address] Apr, [facility] [id number] [place] [address] Apr, [facility] [id number] [place] [address] Apr, Anxiety F41.9 [facility] [id number] [place] [address] Apr, Right groin pain R10.31 [facility] [id number] [place] [address] Mar, [facility] [id number] [place] [address] Mar, [facility] [id number] [place] [address] Mar, Anxiety F41.9 [facility] [id number] [place] [address] Mar, Low back pain M54.5 [facility] [id number] [place] [address] Mar, Right groin pain R10.31 ; Low back pain M54.5 and BMI 45.0-49.9, adult Z68.42 [facility] [id number] [place] [address] Mar, [facility] [id number] [place] [address] Mar, [facility] [id number] [place] [address] Mar, [facility] [id number] [place] [address] Mar, [facility] [id number] [place] [address] Mar, Cough R05 ; Pneumonia of right lower lobe due to infectious organism J18.1 and Abnormal chest x-ray R93.8 [place] [id number] [place] [address] Mar, [facility] [id number] [place] [address] Mar, [facility] [id number] [place] [address] Jan, Anxiety F41.9 [facility] [id number] [place] [address] Jan, [facility] [id number] [place] [address] Jan, Moderate episode of recurrent major depressive disorder F33.1 [facility] [id number] [place] [address] Jan, Subacromial bursitis of right shoulder joint M75.51 ; Shortness of breath on exertion R06.02 and BMI 45.0-49.9, adult Z68.42 [facility] [id number] [place] [address] Dec, Anxiety F41.9 [facility] [address] [address] Dec, [facility] [address] [address] Dec, Low back pain M54.5 [facility] [id number] [place] [address] Oct, Low back pain M54.5 [facility] [id number] [place] [address] Sep, [facility] [id number] [place] [address] Sep, Erectile dysfunction due to diseases classified elsewhere N52.1 [facility] [id number] [place] [address] Sep, Erectile dysfunction due to diseases classified elsewhere N52.1 [facility] [id number] [place] [address] Sep, [facility] [id number] [place] [address] Sep, Erectile dysfunction due to diseases classified elsewhere N52.1 [facility] [id number] [place] [address] Sep, Low back pain M54.5 and Anxiety F41.9 [facility] [id number] [place] [address] Aug, Acute allergic rhinitis J30.9 [facility] [id number] [place] [address] Aug, [facility] [address] [address] Aug, Anxiety F41.9 [facility] [id number] [place] [address] Jul, Low back pain M54.5 ; Chronic prescription opiate use Z79.899 and Essential hypertension I10 [facility] [id number] [place] [address] Jul, Anxiety F41.9 and Low back pain M54.5 [facility] [id number] [place] [address] June, [facility] [id number] [place] [address] June, Anxiety F41.9 [facility] [id number] [place] [address] May, Low back pain M54.5 [facility] [id number] [place] [address] May, [facility] [id number] [place] [address] May, Anxiety F41.9 [facility] [id number] [place] [address] Apr, [facility] [id number] [place] [address] Apr, Low back pain M54.5 [facility] [id number] [place] [address] Apr, Moderate episode of recurrent major depressive disorder F33.1 [facility] [address] [place] [address] Apr, Anxiety F41.9 [place] [address] [place] [address] Apr, Low back pain M54.5 [place] [id number] [place] [address] 15 Apr, 2016 Elevated alkaline phosphatase level R74.8 [place] [id number] [place] [address] 10 Apr, 2016 Alkaline phosphatase elevation R74.8 [place] [id number] [place] [address] 06 Apr, 2016 Anxiety F41.9 [place] [address] [address] Apr, Low back pain M54.5 [place] [id number] [place] [address] Apr, History of weight loss surgery Z98.84 ; Encounter for hepatitis C screening test for low risk patient Z11.59 ; History of herpes genitalis Z86.19 ; Essential hypertension I10 ; Hyperlipidemia, unspecified E78.5 ; Exposure to STD Z20.2 and Benign prostatic hyperplasia, presence of lower urinary tract symptoms unspecified, unspecified morphology N40.0 [place] [id number] [place] [address] Apr, [place] [id number] [place] [address] Mar, [place] [id number] [place] [address] Mar, [place] [id number] [place] [address] Mar, [place] [id number] [place] [address] Mar, Acute right-sided low back pain with right-sided sciatica M54.41 [place] [id number] [place] [address] Mar, Low back pain M54.5 [facility] [address] [place] [address] Mar, Muscle strain of chest wall, initial encounter S29.011A ; Muscle strain of right thigh, initial encounter S76.911A and Acute non-recurrent maxillary sinusitis J01.00 [place] [address] [address] Mar, Benign prostatic hyperplasia, presence of lower urinary tract symptoms unspecified, unspecified morphology N40.0 [place] [id number] [place] [address] Jan, Low back pain M54.5 [facility] [id number] [place] [address] Jan, Low back pain M54.5 ; Essential hypertension I10 ; Hyperlipidemia, unspecified E78.5 ; Anxiety F41.9 ; Moderate episode of recurrent major depressive disorder F33.1 ; Primary insomnia F51.01 ; Exposure to STD Z20.2 ; Encounter for hepatitis C screening test for low risk patient Z11.59 and History of herpes genitalis Z86.19 [place] [id number] [place] [address] Dec, [place] [id number] [place] [address] Nov, [place] [id number] [place] [address] Nov, Anxiety F41.9 ; Cervicalgia M54.2 ; Moderate episode of recurrent major depressive disorder F33.1 and Encounter for immunization Z23 [place] [id number] [place] [address] Oct, [place] [id number] [place] [address] Oct, [place] [address] [place] [address] 16 Nov, 2015 [facility] [id number] [place] [address] Oct, [facility] [id number] [place] [address] Sep, [facility] [id number] [place] [address] Aug, Low back pain M54.5 ; Anxiety F41.9 ; Primary insomnia F51.01 and Chronic prescription opiate use Z79.899 [facility] [id number] [place] [address] Jul, [facility] [id number] [place] [address] Jul, [facility] [id number] [place] [address] Jul, [facility] [id number] [place] [address] Jul, [facility] [id number] [place] [address] Jul, [facility] [id number] [place] [address] June, [facility] [id number] [place] [address] June, [facility] [id number] [place] [address] June, [facility] [id number] [place] [address] June, [facility] [id number] [place] [address] May, Preoperative cardiovascular examination Z01.810 [facility] [id number] [place] [address] May, [facility] [address] [address] Apr, [facility] [id number] [place] [address] Apr, Osteoarthritis of right knee M17.9 [facility] [id number] [place] [address] 30 May, 2015 [facility] [id number] [place] [address] 16 May, 2015 [facility] [id number] [place] [address] Apr, [facility] [id number] [place] [address] Apr, [facility] [id number] [place] [address] 08 May, 2015 History of excessive cerumen Z78.9 ; Obstructive sleep apnea syndrome G47.33 ; History of diverticulitis Z87.19 and Nephrolithiasis N20.0 [facility] [address] [place] [address] Apr, [facility] [address] [address] Apr, Abdominal pain R10.9 [facility] [id number] [place] [address] Apr, [facility] [id number] [place] [address] Apr, Osteoarthritis of right knee M17.9 [facility] [id number] [place] [phone] Mar, [facility] [id number] [place] [phone] Mar, [facility] [id number] [place] [phone] 14 Mar, 2015 [facility] [id number] [place] [phone] Mar, [facility] [id number] [place] [phone] 13 Mar, 2015 Pyelonephritis N12 ; Left-sided thoracic back pain M54.6 ; Hematuria, unspecified R31.9 and Kidney stone N20.0 [facility] [id number] [place] [phone] 12 Mar, 2015 History of weight loss surgery Z98.84 [facility] [address] [id number] 07 Mar, 2015 History of weight loss surgery Z98.84 and Hyperlipidemia, unspecified E78.5 [facility] [id number] [place] [phone] Mar, Low back pain M54.5 ; Chronic prescription opiate use Z79.899 ; Hyperlipidemia, unspecified E78.5 ; Spasm of back muscles M62.830 and History of weight loss surgery Z98.84 [facility] [id number] [place] [phone] Jan, [facility] [id number] [place] [phone] Jan, [facility] [id number] [place] [phone] Jan, [facility] [id number] [place] [phone] Dec, [facility] [id number] [place] [phone] Dec, [facility] [id number] [place] [phone] Dec, [facility] [id number] [place] [phone] Nov, [facility] [id number] [place] [address] [address] Nov, Obstructive sleep apnea syndrome G47.33 and Pharyngoesophageal dysphagia R13.14 [facility] [id number] [place] [address] Nov, [facility] [id number] [place] [address] Nov, [facility] [id number] [place] [address] Nov, [facility] [id number] [place] [id number] Oct, Dental examination V72.2 [facility] [id number] [place] [address] Oct, [facility] [id number] [place] [address] Oct, [facility] [id number] [place] [address] Oct, [facility] [id number] [place] [address] Oct, [facility] [id number] [place] [address] Oct, BPH (benign prostatic hyperplasia) 600.00 and Urinary frequency 788.41 [facility] [id number] [place] [address] Oct, [facility] [id number] [place] [address] Oct, [facility] [id number] [place] [address] Oct, [facility] [id number] [place] [address] Sep, Cerumen impaction 380.4 ; Cerumen debris on tympanic membrane 380.4 ; Psoriasis 696.1 and MICKY (secretory otitis media) 381.4 [facility] [id number] [place] [id number] Sep, Dental examination V72.2 [facility] [id number] [place] [address] Sep, Fatigue 780.79 ; Irritable bowel syndrome 564.1 ; Overweight 278.02 ; Poor sleep V69.4 ; Shaking spells 781.0 and Broken tooth 873.63 [facility] [id number] [place] [address] Sep, [facility] [id number] [place] [address] Sep, [facility] [id number] [place] [address] Aug, [facility] [id number] [place] [address] Jul, [facility] [id number] [place] [address] Jul, [facility] [id number] [place] [address] Jul, [facility] [id number] [place] [address] Jul, [facility] [id number] [place] [address] June, Arthritis of knee, right 716.96 [facility] [id number] [place] [address] June, [facility] [id number] [place] [address] June, Elevated blood pressure reading without diagnosis of hypertension 796.2 [facility] [id number] [place] [address] June, [facility] [place] [facility] [address] [id number] [place] [address] June, [facility] [place] [facility] [address] [id number] [place] [address] June, [facility] [place] [facility] [address] [id number] [place] [address] June, [facility] [place] [facility] [address] [id number] [place] [address] May, [facility] [place] [facility] [address] [id number] [place] [address] May, [facility] [place] [facility] [address] [id number] [place] [address] Apr, [facility] [place] [facility] [address] [id number] [place] [address] Apr, [facility] [place] [facility] [address] [id number] [place] [address] Apr, [facility] [place] [facility] [address] [id number] [place] [address] Apr, [facility] [place] [facility] [address] [id number] [place] [address] Apr, [facility] [place] [facility] [address] [id number] [place] [address] Apr, [facility] [place] [facility] [address] [id number] [place] [address] Apr, [facility] [place] [facility] [address] [id number] [place] [address] Apr, [facility] [place] [facility] [address] [id number] [place] [address] Apr, [facility] [place] [facility] [address] [id number] [place] [address] Apr, [facility] [place] [facility] [address] [id number] [place] [address] Apr, 2014 [facility] [place] [facility] [address] [id number] [place] [address] Apr, 2014 [facility] [place] [facility] [address] [id number] [place] [address] 24 Apr, 2014 [facility] [place] [facility] [address] [id number] [place] [address] 24 Apr, 2014 [facility] [place] [facility] [address] [id number] [place] [address] 23 Apr, 2014 [facility] [place] [facility] [address] [id number] [place] [address] 23 Apr, 2014 [facility] [place] [facility] [address] [facility] [id number] [place] [address] 20 Apr, 2014 [facility] [place] [facility] [address] [facility] [id number] [place] [address] 20 Apr, 2014 [facility] [place] [facility] [address] [facility] [id number] [place] [address] 18 Apr, 2014 [facility] [place] [facility] [address] [facility] [id number] [place] [address] 18 Apr, 2014 [facility] [place] [facility] [address] [facility] [id number] [place] [address] 13 Apr, 2014 [facility] [place] [facility] [address] [facility] [id number] [place] [address] 13 Apr, 2014 [facility] [place] [facility] [address] [facility] [id number] [place] [address] 13 Apr, 2014 [facility] [place] [facility] [address] [id number] [place] [address] 13 Apr, 2014 [facility] [place] [facility] [address] [facility] [id number] [place] [address] 12 Apr, 2014 [facility] [place] [facility] [address] [facility] [id number] [place] [address] Apr, 2014 [facility] [place] [facility] [address] [id number] [place] [address] Apr, 2014 [facility] [place] [facility] [address] [id number] [place] [address] Apr, 2014 [facility] [place] [facility] [address] [id number] [place] [address] Apr, 2014 [facility] [place] [facility] [address] [id number] [place] [address] Apr, 2014 [facility] [place] [facility] [address] [id number] [place] [address] Apr, 2014 [facility] [place] [facility] [address] [facility] [id number] [place] [address] Apr, 2014 [facility] [place] [facility] [address] [facility] [id number] [place] [address] Apr, 2014 [facility] [place] [facility] [address] [facility] [id number] [place] [address] Mar, [facility] [place] [facility] [address] [facility] [id number] [place] [address] Mar, [facility] [place] [facility] [address] [facility] [id number] [place] [address] Mar, [facility] [place] [facility] [address] [facility] [id number] [place] [address] Mar, [facility] [place] [facility] [address] [id number] [place] [address] Mar, [facility] [place] [facility] [address] [facility] [id number] [place] [address] Mar, [facility] [place] [facility] [address] [facility] [id number] [place] [address] Mar, [facility] [place] [facility] [address] [facility] [id number] [place] [address] Mar, [facility] [place] [facility] [address] [id number] [place] [address] Mar, [facility] [place] [facility] [address] [id number] [place] [address] Mar, [facility] [place] [facility] [address] [facility] [id number] [place] [address] Jan, [facility] [place] [facility] [address] [id number] [place] [address] Jan, [facility] [place] [facility] [address] [id number] [place] [address] Jan, [facility] [place] [facility] [address] [id number] [place] [address] Jan, [facility] [place] [facility] [address] [id number] [place] [address] Jan, [facility] [place] [facility] [address] [id number] [place] [address] Jan, [facility] [place] [facility] [address] [id number] [place] [address] Jan, [facility] [place] [facility] [address] [id number] [place] [address] Jan, [facility] [place] [facility] [address] [id number] [place] [address] Jan, [facility] [place] [facility] [address] [id number] [place] [address] Jan, [facility] [place] [facility] [address] [id number] [place] [address] Jan, [facility] [place] [facility] [address] [id number] [place] [address] Jan, [facility] [place] [facility] [address] [id number] [place] [address] Dec, [facility] [place] [facility] [address] [id number] [place] [address] Dec, [facility] [place] [facility] [address] [id number] [place] [address] Dec, [facility] [place] [facility] [address] [id number] [place] [address] Dec, [facility] [place] [facility] [address] [id number] [place] [address] Dec, [facility] [place] [facility] [address] [id number] [place] [address] Dec, [facility] [place] [facility] [address] [id number] [place] [address] Dec, [facility] [place] [facility] [address] [id number] [place] [address] Dec, [facility] [place] [facility] [address] [id number] [place] [address] Dec, [facility] [place] [facility] [address] [id number] [place] [address] Dec, [facility] [place] [facility] [address] [id number] [place] [address] Nov, [facility] [place] [facility] [address] [id number] [place] [address] Nov, [facility] [place] [facility] [address] [id number] [place] [address] Nov, [facility] [place] [facility] [address] [id number] [place] [address] Nov, [facility] [place] [facility] [address] [id number] [place] [address] Nov, [facility] [place] [facility] [address] [id number] [place] [address] Nov, [facility] [place] [facility] [address] [id number] [place] [address] Nov, [facility] [place] [facility] [address] [id number] [place] [address] Nov, [facility] [place] [facility] [address] [id number] [place] [address] Nov, [facility] [place] [facility] [address] [id number] [place] [address] Nov, [facility] [place] [facility] [address] [id number] [place] [address] Nov, [facility] [place] [facility] [address] [id number] [place] [address] Nov, [facility] [place] [facility] [address] [id number] [place] [address] Nov, [facility] [place] [facility] [address] [id number] [place] [address] Nov, [facility] [place] [facility] [address] [id number] [place] [address] Nov, [facility] [place] [facility] [address] [id number] [place] [address] Nov, [facility] [place] [facility] [address] [id number] [place] [address] Nov, [facility] [place] [facility] [address] [id number] [place] [address] Nov, [facility] [place] [facility] [address] [id number] [place] [address] Nov, [facility] [place] [facility] [address] [id number] [place] [address] Nov, [facility] [place] [facility] [address] [id number] [place] [address] Oct, [facility] [place] [facility] [address] [id number] [place] [address] Oct, [facility] [place] [facility] [address] [id number] [place] [address] Oct, [facility] [place] [facility] [address] [id number] [place] [address] Oct, [facility] [place] [facility] [address] [id number] [place] [address] Oct, [facility] [place] [facility] [address] [id number] [place] [address] Oct, [facility] [place] [facility] [address] [id number] [place] [address] Oct, [facility] [place] [facility] [address] [id number] [place] [address] Oct, [facility] [place] [facility] [address] [id number] [place] [address] Oct, [facility] [place] [facility] [address] [id number] [place] [address] Oct, [facility] [place] [facility] [address] [id number] [place] [address] Sep, [facility] [place] [facility] [address] [id number] [place] [address] Sep, [facility] [place] [facility] [address] [id number] [place] [address] Sep, [facility] [place] [facility] [address] [id number] [place] [address] Sep, [facility] [place] [facility] [address] [id number] [place] [address] Sep, [facility] [place] [facility] [address] [id number] [place] [address] Sep, [facility] [place] [facility] [address] [id number] [place] [address] Sep, [facility] [place] [facility] [address] [id number] [place] [address] Sep, [facility] [place] [facility] [address] [id number] [place] [address] Sep, [facility] [place] [facility] [address] [id number] [place] [address] Sep, [facility] [place] [facility] [address] [id number] [place] [address] Sep, [facility] [place] [facility] [address] [id number] [place] [address] Sep, [facility] [place] [facility] [address] [id number] [place] [address] Sep, [facility] [place] [facility] [address] [id number] [place] [address] Sep, [facility] [place] [facility] [address] [id number] [place] [address] Sep, [facility] [place] [facility] [address] [id number] [place] [address] Sep, [facility] [place] [facility] [address] [id number] [place] [address] Sep, [facility] [place] [facility] [address] [id number] [place] [address] Sep, [facility] [place] [facility] [address] [id number] [place] [address] Sep, [facility] [place] [facility] [address] [id number] [place] [address] Sep, [facility] [place] [facility] [address] [id number] [place] [address] Sep, [facility] [place] [facility] [address] [id number] [place] [address] Sep, [facility] [place] [facility] [address] [id number] [place] [address] Sep, [facility] [place] [facility] [address] [id number] [place] [address] Sep, [facility] [place] [facility] [address] [id number] [place] [address] Sep, [facility] [place] [facility] [address] [id number] [place] [address] Aug, [facility] [place] [facility] [address] [id number] [place] [address] Aug, [facility] [place] [facility] [address] [id number] [place] [address] Aug, [facility] [place] [facility] [address] [id number] [place] [address] Aug, [facility] [place] [facility] [address] [id number] [place] [address] Aug, [facility] [place] [facility] [address] [id number] [place] [address] Aug, [facility] [place] [facility] [address] [id number] [place] [address] Aug, [facility] [place] [facility] [address] [id number] [place] [address] Aug, [facility] [place] [facility] [address] [id number] [place] [address] Aug, [facility] [place] [facility] [address] [id number] [place] [address] Aug, [facility] [place] [facility] [address] [id number] [place] [address] Aug, [facility] [place] [facility] [address] [id number] [place] [address] Aug, [facility] [place] [facility] [address] [id number] [place] [address] Aug, [facility] [place] [facility] [address] [id number] [place] [address] Jul, [facility] [place] [facility] [address] [id number] [place] [address] Jul, [facility] [place] [facility] [address] [id number] [place] [address] Jul, [facility] [place] [facility] [address] [id number] [place] [address] Jul, [facility] [place] [facility] [address] [id number] [place] [address] Jul, [facility] [place] [facility] [address] [id number] [place] [address] Jul, [facility] [place] [facility] [address] [id number] [place] [address] Jul, [facility] [place] [facility] [address] [id number] [place] [address] June, [facility] [place] [facility] [address] [id number] [place] [address] June, [facility] [place] [facility] [address] [id number] [place] [address] June, [facility] [place] [facility] [address] [id number] [place] [address] June, [facility] [place] [facility] [address] [id number] [place] [address] May, [facility] [place] [facility] [address] [id number] [place] [address] May, [facility] [place] [facility] [address] [id number] [place] [address] May, [facility] [place] [facility] [address] [id number] [place] [address] May, [facility] [place] [facility] [address] [id number] [place] [address] May, [facility] [place] [facility] [address] [id number] [place] [address] May, [facility] [place] [facility] [address] [id number] [place] [address] May, [facility] [place] [facility] [address] [id number] [place] [address] May, [facility] [place] [facility] [address] [id number] [place] [address] May, [facility] [place] [facility] [address] [id number] [place] [address] May, [facility] [place] [facility] [address] [id number] [place] [address] Apr, [facility] [place] [facility] [address] [id number] [place] [address] Apr, [facility] [place] [facility] [address] [facility] [id number] [place] [address] Apr, [facility] [place] [facility] [address] [id number] [place] [address] Apr, [facility] [place] [facility] [address] [id number] [place] [address] Apr, [facility] [place] [facility] [address] [facility] [id number] [place] [address] Apr, [facility] [place] [facility] [address] [facility] [id number] [place] [address] Apr, [facility] [place] [facility] [address] [id number] [place] [address] Apr, [facility] [place] [facility] [address] [id number] [place] [address] Apr, [facility] [place] [facility] [address] [id number] [place] [address] Apr, [facility] [place] [facility] [address] [facility] [id number] [place] [address] Mar, [facility] [place] [facility] [address] [id number] [place] [address] Mar, [facility] [address] [id number] [place] [address] Mar, [facility] [address] [id number] [place] [address] Mar, [facility] [address] [facility] [id number] [place] [address] Mar, [facility] [address] [id number] [place] [address] Mar, [facility] [address] [id number] [place] [address] Jan, [facility] [address] [id number] [place] [address] Jan, [facility] [address] [facility] [id number] [place] [address] Jan, [facility] [address] [id number] [place] [address] Jan, [facility] [address] [facility] [id number] [place] [address] Jan, [facility] [address] [facility] [id number] [place] [address] Jan, [facility] [address] [facility] [id number] [place] [address] Jan, [facility] [place] [facility] [address] [id number] [place] [address] Jan, [facility] [place] [facility] [address] [id number] [place] [address] Jan, [facility] [place] [facility] [address] [facility] [id number] [place] [address] Dec, [facility] [place] [facility] [address] [facility] [id number] [place] [address] Dec, [facility] [place] [facility] [address] [id number] [place] [address] Dec, [facility] [place] [facility] [address] [id number] [place] [address] Dec, [facility] [place] [facility] [address] [id number] [place] [address] Dec, [facility] [place] [facility] [address] [id number] [place] [address] Dec, [facility] [place] [facility] [address] [id number] [place] [address] Dec, [facility] [place] [facility] [address] [id number] [place] [address] Dec, [facility] [place] [facility] [address] [id number] [place] [address] Dec, [facility] [place] [facility] [address] [id number] [place] [address] Dec, [facility] [place] [facility] [address] [id number] [place] [address] Dec, [facility] [place] [facility] [address] [id number] [place] [address] Nov, [facility] [place] [facility] [address] [id number] [place] [address] Nov, [facility] [place] [facility] [address] [id number] [place] [address] Nov, [facility] [place] [facility] [address] [id number] [place] [address] Nov, [facility] [place] [facility] [address] [id number] [place] [address] Nov, [facility] [place] [facility] [address] [id number] [place] [address] 11 Oct, 2012 [facility] [place] [facility] [address] [id number] [place] [address] Oct, [facility] [address] [id number] [place] [address] Sep, [facility] [place] [facility] [address] [id number] [place] [address] Aug, [facility] [place] [facility] [address] [id number] [place] [address] Aug, [facility] [place] [facility] [address] [id number] [place] [address] Aug, [facility] [address] [id number] [place] [address] Aug, [facility] [address] [id number] [place] [address] Jul, [facility] [place] [facility] [address] [id number] [place] [address] Jul, [facility] [place] [facility] [address] [id number] [place] [address] June, [facility] [place] [facility] [address] [id number] [place] [address] June, [facility] [place] [facility] [address] [id number] [place] [address] June, [facility] [place] [facility] [address] [id number] [place] [address] May, [facility] [place] [facility] [address] [id number] [place] [address] May, [facility] [place] [facility] [address] [id number] [place] [address] May, [facility] [place] [facility] [address] [id number] [place] [address] Apr, [facility] [place] [facility] [address] [id number] [place] [address] Apr, [facility] [place] [facility] [address] [id number] [place] [address] 15 Apr, 2012 [facility] [address] [id number] [place] [address] 14 Apr, 2012 [facility] [place] [facility] [address] [id number] [place] [address] 12 Apr, 2012 [facility] [address] [id number] [place] [address] 27 Apr, 2012 [facility] [place] [facility] [address] [id number] [place] [address] Apr, [facility] [facility] [address] [id number] [place] [address] Apr, [facility] [place] [facility] [address] [id number] [place] [address] Apr, [facility] [address] [id number] [place] [address] Apr, [facility] [address] [id number] [place] [address] Apr, [facility] [place] [facility] [address] [id number] [place] [address] Apr, [facility] [place] [facility] [address] [id number] [place] [address] Apr, [facility] [place] [facility] [address] [id number] [place] [address] Mar, [facility] [place] [facility] [address] [id number] [place] [address] Mar, [facility] [place] [facility] [address] [id number] [place] [address] 16 Mar, 2012 [facility] [place] [facility] [address] [id number] [place] [address] Mar, [facility] [place] [facility] [address] [id number] [place] [address] Mar, [facility] [address] [id number] [place] [address] Jan, [facility] [place] [facility] [address] [id number] [place] [address] Jan, [facility] [place] [facility] [address] [id number] [place] [address] Jan, [facility] [place] [facility] [address] [id number] [place] [address] Jan, [facility] [address] [id number] [place] [address] 14 Jan, 2012 [facility] [place] [facility] [address] [id number] [place] [address] Jan, [facility] [place] [facility] [address] [id number] [place] [address] Jan, [facility] [place] [facility] [address] [id number] [place] [address] Jan, [facility] [place] [facility] [address] [id number] [place] [address] Jan, [facility] [place] [facility] [address] [id number] [place] [address] Jan, [facility] [place] [facility] [address] [id number] [place] [address] Jan, [facility] [place] [facility] [address] [id number] [place] [address] Jan, [facility] [place] [facility] [address] [id number] [place] [address] Jan, [facility] [place] [facility] [address] [id number] [place] [address] Jan, [facility] [place] [facility] [address] [id number] [place] [address] Dec, [facility] [place] [facility] [address] [id number] [place] [address] 26 Jan, 2012 [facility] [place] [facility] [address] [id number] [place] [address] 19 Jan, 2012 [facility] [place] [facility] [address] [id number] [place] [address] 19 Jan, 2012 [facility] [place] [facility] [address] [id number] [place] [address] 15 Jan, 2012 [facility] [place] [facility] [address] [id number] [place] [address] 15 Jan, 2012 [facility] [place] [facility] [address] [id number] [place] [address] 14 Jan, 2012 [facility] [place] [facility] [address] [id number] [place] [address] 14 Jan, 2012 [facility] [place] [facility] [address] [id number] [place] [address] 14 Jan, 2012 [facility] [place] [facility] [address] [id number] [place] [address] 14 Jan, 2012 [facility] [place] [facility] [address] [id number] [place] [address] 07 Jan, 2012 [facility] [place] [facility] [address] [facility] [id number] [place] [address] 07 Jan, 2012 [facility] [place] [facility] [address] [id number] [place] [address] 16 Dec, 2011 [facility] [place] [facility] [address] [id number] [place] [address] 16 Dec, 2011 [facility] [place] [facility] [address] [id number] [place] [address] 13 Sep2011 [facility] [place] [facility] [address] [id number] [place] [address] 13 Sep2011 [facility] [place] [facility] [address] [id number] [place] [address] 13 Nov, 2011 [facility] [place] [facility] [address] [id number] [place] [address] Oct, [facility] [place] [facility] [address] [id number] [place] [address] Sep, [facility] [place] [facility] [address] [id number] [place] [address] Sep, [facility] [place] [facility] [address] [id number] [place] [address] Aug, [facility] [address] [id number] [place] [address] Aug, [facility] [place] [facility] [address] [id number] [place] [address] Aug, [facility] [address] [id number] [place] [address] Aug, [facility] [address] [id number] [place] [address] June, [facility] [place] [facility] [address] [id number] [place] [address] June, [facility] [address] [id number] [place] [address] May, [facility] [place] [facility] [address] [id number] [place] [address] Apr, [facility] [place] [facility] [address] [id number] [place] [address] Apr, [facility] [place] [facility] [address] [id number] [place] [address] Apr, [facility] [place] [facility] [address] [id number] [place] [address] Apr, [facility] [place] [facility] [address] [id number] [place] [address] Apr, [facility] [place] [facility] [address] [id number] [place] [address] Apr, [facility] [address] [id number] [place] [address] Mar, [facility] [place] [facility] [address] [id number] [place] [address] Mar, [facility] [place] [facility] [address] [id number] [place] [address] Mar, [facility] [place] [facility] [address] [id number] [place] [address] Jan, [facility] [place] [facility] [address] [id number] [place] [address] Jan, [facility] [place] [facility] [address] [id number] [place] [address] Jan, [facility] [place] [facility] [address] [id number] [place] [address] Jan, [facility] [place] [facility] [address] [id number] [place] [address] Jan, [facility] [place] [facility] [address] [id number] [place] [address] Jan, [facility] [place] [facility] [address] [id number] [place] [address] Jan, [facility] [place] [facility] [address] [id number] [place] [address] Dec, [facility] [place] [facility] [address] [id number] [place] [address] Dec, [facility] [place] [facility] [address] [id number] [place] [address] Nov, [facility] [place] [facility] [address] [id number] [place] [address] Nov, [facility] [place] [facility] [address] [id number] [place] [address] Nov, [facility] [place] [facility] [address] [id number] [place] [address] 12 Nov, 2010 [facility] [address] [id number] [place] [address] 12 Oct, 2010 [facility] [place] [facility] [address] [id number] [place] [address] Sep, [facility] [place] [facility] [address] [id number] [place] [address] Mar, [facility] [place] [facility] [address] [id number] [place] [address] Jan, [facility] [place] [facility] [address] [id number] [place] [address] Dec, [facility] [place] [facility] [address] [id number] [place] [address] Dec, [facility] [place] [facility] [address] [id number] [place] [address] Dec, [facility] [place] [facility] [address] [id number] [place] [address] Dec, [facility] [place] [facility] [address] [id number] [place] [address] 26 Nov, 2009 [facility] [place] [facility] [address] [id number] [place] [address] 15 Nov, 2009 [facility] [place] [facility] [address] [id number] [place] [address] 14 Nov, 2009 [facility] [place] [facility] [address] [id number] [place] [address] 14 Nov, 2009 [facility] [place] [facility] [address] [id number] [place] [address] 13 Oct, 2009 [facility] [place] [facility] [address] [id number] [place] [address] Jul, [facility] [place] [facility] [address] [id number] [place] [address] June, [facility] [address]65[address] [place] [address] June, [facility] [address]65[address] [place] [address] 17 Apr, 2009 [facility] [address]00565[address] [place] [address] Mar, [facility] [id number] [place] [address] Jan, [facility] [id number] [place] [address] Jan, [facility] [id number] [place] [address] Dec, [facility] [id number] [place] [address] Dec, [facility] [id number] [place] [address] Dec, [facility] [id number] [place] [address] Dec, [facility] [address]65[address] [place] [address] Nov, [facility] [address] [place] [address] Jul, [facility] [address] [place] [address] June, IMMUNIZATIONS No Known Immunizations SOCIAL HISTORY Never Assessed [place] [place] VITAL SIGNS MEDICATIONS Unknown Medications RESULTS No Results PROCEDURES No Known procedures INSTRUCTIONS MEDICATIONS ADMINISTERED No Known Medications MEDICAL (GENERAL) HISTORY Type Description Date Medical History hypertension Medical History sleep apnea-did not tolerate CPAP Medical History oxygen dependent at [facility] Medical History colonic polyps Medical [...]
--- OUTSIDE RECORDS SUMMARY | 2018-08-23 17:03 | XMS REPORT ---
Author Author Migration, Doctor Organization [facility] Address Unknown Phone Unavailable Care Team Providers Care Returned Case Inspector Name Role Phone Migration, Doctor Unavailable Unavailable PROBLEMS Type Condition ICD9-CM Code [id number] Code Onset Dates Condition Status SNOMED Code Problem Pulmonary asbestosis J61 Active 78003155 Problem Renal cyst, left N28.1 Active 33226746 Problem Left ventricular diastolic dysfunction I51.9 Active 593804615 Problem Urge incontinence N39.41 Active 787771887 Problem Anxiety F41.9 Active 34733678 Problem Low back pain M54.5 Active 059133136 Problem Age-related osteoporosis without current pathological fracture M81.0 Active 42934083 Problem History of diverticulitis Z87.19 Active [id number] Problem Allergic rhinitis, unspecified allergic rhinitis type J30.9 Active 18144311 Problem Nephrolithiasis N20.0 Active 27384945 Problem Nocturnal hypoxia G47.34 Active 001623741 Problem Psoriasis L40.9 Active 6525245 Problem Essential hypertension I10 Active 20246789 Problem Chronic gout, unspecified cause, unspecified site M1A.9XX0 Active 39123331 Problem Esophageal stricture K22.2 Active 19799832 Problem Obstructive sleep apnea syndrome G47.33 Active 13956877 Problem History of weight loss surgery Z98.84 Active 131257486 Problem 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 Active 13985905 Problem Chronic prescription opiate use Z79.899 Active 398048857 Problem Moderate episode of recurrent major depressive disorder F33.1 Active 608285583 Problem Chronic obstructive pulmonary disease, unspecified COPD type J44.9 Active 82406146 Problem Primary insomnia F51.01 Active 575819542 Problem Neuropathy G62.9 Active 526878749 Problem Cervicalgia M54.2 Active 7597294579978 Problem Hyperlipidemia, unspecified E78.5 Active 18088952 Problem Benign prostatic hyperplasia, presence of lower urinary tract symptoms unspecified, unspecified morphology N40.0 Active 624164779 Problem Acute right-sided low back pain with right-sided sciatica M54.41 Active 736833819 Problem Erectile dysfunction due to diseases classified elsewhere N52.1 Active 159216134 Problem Hammertoe of left foot M20.42 Active 501926603 ALLERGIES No Information ENCOUNTERS Encounter Location Date Diagnosis [place] [id number] [place] [address] Jul, [place] [id number] [place] [address] June, [place] [address] [address] May, Primary insomnia F51.01 [place] [address] [address] May, Morbid obesity E66.01 ; Moderate episode of recurrent major depressive disorder F33.1 and Neuropathy G62.9 [place] [address] [address] May, Onychomycosis B35.1 ; Neuropathy G62.9 and Closed nondisplaced fracture of metatarsal bone of left foot, unspecified metatarsal, initial encounter S92.302A [place] [address] [address] May, [place] [id number] [place] [address] Apr, Moderate episode of recurrent major depressive disorder F33.1 ; Morbid obesity E66.01 ; Hyperlipidemia, unspecified E78.5 ; Primary insomnia F51.01 and Low back pain M54.5 [place] [id number] [place] [address] Apr, Primary insomnia F51.01 [place] [id number] [place] [address] 28 Apr, 2018 Anxiety F41.9 [place] [id number] [place] [address] 15 Apr, 2018 Low back pain M54.5 [facility] [id number] [place] [address] Apr, Anxiety F41.9 [facility] [id number] [place] [address] Mar, Moderate episode of recurrent major depressive disorder F33.1 ; BMI 50.0-59.9, adult Z68.43 ; Anxiety F41.9 and Chronic prescription opiate use Z79.899 [place] [id number] [place] [address] Mar, Onychomycosis B35.1 ; Neuropathy G62.9 and Impaired circulation I99.9 [place] [id number] [place] [address] Mar, Low back pain M54.5 [place] [id number] [place] [address] Mar, Anxiety F41.9 [place] [id number] [place] [address] Jan, BMI 50.0-59.9, adult Z68.43 ; Chronic obstructive pulmonary disease, unspecified COPD type J44.9 ; Low back pain M54.5 and Moderate episode of recurrent major depressive disorder F33.1 [place] [address] [place] [address] Jan, [place] [id number] [place] [address] Jan, [place] [id number] [place] [address] Dec, Anxiety F41.9 [place] [id number] [place] [address] Dec, [place] [address] [place] [address] Dec, Anxiety F41.9 [place] [id number] [address] Dec, [place] [id number] [place] [address] Dec, Encounter for immunization Z23 [facility] [id number] [place] [address] Dec, [place] [id number] [place] [address] Dec, Hammertoe of left foot M20.42 ; Edema of left foot R60.0 and Onychomycosis B35.1 [facility] [place] [id number] [place] [address] Nov, BMI 50.0-59.9, adult Z68.43 [place] [id number] [place] [address] Nov, [place] [id number] [place] [address] Nov, [place] [id number] [place] [address] Nov, Anxiety F41.9 [place] [id number] [place] [address] Oct, [place] [id number] [place] [address] Oct, [place] [id number] [place] [address] 18 Oct, 2017 BMI 45.0-49.9, adult Z68.42 ; Essential hypertension I10 ; Hyperlipidemia, unspecified E78.5 ; Anxiety F41.9 ; Obstructive sleep apnea syndrome G47.33 ; Moderate episode of recurrent major depressive disorder F33.1 ; Left ventricular diastolic dysfunction I51.9 ; Acute pain of right shoulder M25.511 ; Pain of left foot M79.672 and Pain in right foot M79.671 [place] [id number] [place] [address] Oct, Anxiety F41.9 [facility] [id number] [place] [address] Sep, Left foot pain M79.672 [facility] [id number] [place] [address] Sep, [facility] [id number] [place] [address] Sep, Anxiety F41.9 [facility] [id number] [place] [address] Sep, [facility] [id number] [place] [address] Aug, [facility] [id number] [place] [address] Aug, [facility] [id number] [place] [address] Aug, Anxiety F41.9 [facility] [id number] [place] [address] Aug, [facility] [id number] [place] [address] Jul, [facility] [id number] [place] [address] Jul, Anxiety F41.9 [facility] [id number] [place] [address] June, Anxiety F41.9 [facility] [id number] [place] [address] June, [facility] [id number] [place] [address] June, Low back pain M54.5 ; Chronic prescription opiate use Z79.899 ; Candidal intertrigo B37.2 ; Urge incontinence N39.41 ; Essential hypertension I10 ; Moderate episode of recurrent major depressive disorder F33.1 ; Age-related osteoporosis without current pathological fracture M81.0 and BMI 45.0-49.9, adult Z68.42 [facility] [id number] [place] [address] June, [facility] [id number] [place] [address] May, Anxiety F41.9 [facility] [address] [address] May, [facility] [address] [address] May, [facility] [id number] [place] [address] Apr, Anxiety F41.9 [facility] [address] [address] Apr, [facility] [id number] [place] [address] Apr, Low back pain M54.5 [facility] [id number] [place] [address] Apr, [facility] [id number] [place] [address] Apr, [facility] [id number] [place] [address] Apr, Anxiety F41.9 [facility] [id number] [place] [address] Apr, Right groin pain R10.31 [facility] [id number] [place] [address] Mar, [facility] [id number] [place] [address] Mar, [facility] [id number] [place] [address] Mar, Anxiety F41.9 [facility] [id number] [place] [address] Mar, Low back pain M54.5 [facility] [id number] [place] [address] Mar, Right groin pain R10.31 ; Low back pain M54.5 and BMI 45.0-49.9, adult Z68.42 [facility] [id number] [place] [address] Mar, [facility] [id number] [place] [address] Mar, [facility] [id number] [place] [address] Mar, [facility] [id number] [place] [address] Mar, [facility] [id number] [place] [address] Mar, Cough R05 ; Pneumonia of right lower lobe due to infectious organism J18.1 and Abnormal chest x-ray R93.8 [place] [id number] [place] [address] Mar, [facility] [id number] [place] [address] Mar, [facility] [id number] [place] [address] Jan, Anxiety F41.9 [facility] [id number] [place] [address] Jan, [facility] [id number] [place] [address] Jan, Moderate episode of recurrent major depressive disorder F33.1 [facility] [id number] [place] [address] Jan, Subacromial bursitis of right shoulder joint M75.51 ; Shortness of breath on exertion R06.02 and BMI 45.0-49.9, adult Z68.42 [facility] [id number] [place] [address] Dec, Anxiety F41.9 [facility] [address] [address] Dec, [facility] [address] [address] Dec, Low back pain M54.5 [facility] [id number] [place] [address] Oct, Low back pain M54.5 [facility] [id number] [place] [address] Sep, [facility] [id number] [place] [address] Sep, Erectile dysfunction due to diseases classified elsewhere N52.1 [facility] [id number] [place] [address] Sep, Erectile dysfunction due to diseases classified elsewhere N52.1 [facility] [id number] [place] [address] Sep, [facility] [id number] [place] [address] Sep, Erectile dysfunction due to diseases classified elsewhere N52.1 [facility] [id number] [place] [address] Sep, Low back pain M54.5 and Anxiety F41.9 [facility] [id number] [place] [address] Aug, Acute allergic rhinitis J30.9 [facility] [id number] [place] [address] Aug, [facility] [address] [address] Aug, Anxiety F41.9 [facility] [id number] [place] [address] Jul, Low back pain M54.5 ; Chronic prescription opiate use Z79.899 and Essential hypertension I10 [facility] [id number] [place] [address] Jul, Anxiety F41.9 and Low back pain M54.5 [facility] [id number] [place] [address] June, [facility] [id number] [place] [address] June, Anxiety F41.9 [facility] [id number] [place] [address] May, Low back pain M54.5 [facility] [id number] [place] [address] May, [facility] [id number] [place] [address] May, Anxiety F41.9 [facility] [id number] [place] [address] Apr, [facility] [id number] [place] [address] Apr, Low back pain M54.5 [facility] [id number] [place] [address] Apr, Moderate episode of recurrent major depressive disorder F33.1 [facility] [address] [place] [address] Apr, Anxiety F41.9 [place] [address] [place] [address] Apr, Low back pain M54.5 [place] [id number] [place] [address] 15 Apr, 2016 Elevated alkaline phosphatase level R74.8 [place] [id number] [place] [address] 10 Apr, 2016 Alkaline phosphatase elevation R74.8 [place] [id number] [place] [address] 06 Apr, 2016 Anxiety F41.9 [place] [address] [address] Apr, Low back pain M54.5 [place] [id number] [place] [address] Apr, History of weight loss surgery Z98.84 ; Encounter for hepatitis C screening test for low risk patient Z11.59 ; History of herpes genitalis Z86.19 ; Essential hypertension I10 ; Hyperlipidemia, unspecified E78.5 ; Exposure to STD Z20.2 and Benign prostatic hyperplasia, presence of lower urinary tract symptoms unspecified, unspecified morphology N40.0 [place] [address] [id number] [place] [address] Apr, [place] [address] [id number] [place] [address] Mar, [place] [id number] [place] [address] Mar, [place] [id number] [place] [address] Mar, [place] [id number] [place] [address] Mar, Acute right-sided low back pain with right-sided sciatica M54.41 [place] [address] [id number] [place] [address] Mar, Low back pain M54.5 [facility] [address] [place] [address] Mar, Muscle strain of chest wall, initial encounter S29.011A ; Muscle strain of right thigh, initial encounter S76.911A and Acute non-recurrent maxillary sinusitis J01.00 [place] [address] [address] Mar, Benign prostatic hyperplasia, presence of lower urinary tract symptoms unspecified, unspecified morphology N40.0 [place] [address] [id number] [place] [address] Jan, Low back pain M54.5 [facility] [id number] [place] [address] Jan, Low back pain M54.5 ; Essential hypertension I10 ; Hyperlipidemia, unspecified E78.5 ; Anxiety F41.9 ; Moderate episode of recurrent major depressive disorder F33.1 ; Primary insomnia F51.01 ; Exposure to STD Z20.2 ; Encounter for hepatitis C screening test for low risk patient Z11.59 and History of herpes genitalis Z86.19 [place] [id number] [place] [address] Dec, [place] [address] [id number] [place] [address] Nov, [place] [id number] [place] [address] Nov, Anxiety F41.9 ; Cervicalgia M54.2 ; Moderate episode of recurrent major depressive disorder F33.1 and Encounter for immunization Z23 [place] [id number] [place] [address] Oct, [place] [address] [id number] [place] [address] Oct, [place] [address] [place] [address] 16 Nov, 2015 [facility] [id number] [place] [address] Oct, [facility] [id number] [place] [address] Sep, [facility] [id number] [place] [address] Aug, Low back pain M54.5 ; Anxiety F41.9 ; Primary insomnia F51.01 and Chronic prescription opiate use Z79.899 [facility] [id number] [place] [address] Jul, [facility] [id number] [place] [address] Jul, [facility] [id number] [place] [address] Jul, [facility] [id number] [place] [address] Jul, [facility] [id number] [place] [address] Jul, [facility] [id number] [place] [address] June, [facility] [id number] [place] [address] June, [facility] [id number] [place] [address] June, [facility] [id number] [place] [address] June, [facility] [id number] [place] [address] May, Preoperative cardiovascular examination Z01.810 [facility] [id number] [place] [address] May, [facility] [address] [address] Apr, [facility] [id number] [place] [address] Apr, Osteoarthritis of right knee M17.9 [facility] [id number] [place] [address] 30 May, 2015 [facility] [id number] [place] [address] 16 May, 2015 [facility] [id number] [place] [address] Apr, [facility] [id number] [place] [address] Apr, [facility] [id number] [place] [address] 08 May, 2015 History of excessive cerumen Z78.9 ; Obstructive sleep apnea syndrome G47.33 ; History of diverticulitis Z87.19 and Nephrolithiasis N20.0 [facility] [id number] [place] [address] Apr, [facility] [id number] [address] Apr, Abdominal pain R10.9 [facility] [address] [id number] [place] [phone] Apr, [facility] [id number] [place] [phone] Apr, Osteoarthritis of right knee M17.9 [facility] [id number] [place] [phone] Mar, [facility] [id number] [place] [phone] Mar, [facility] [address] [id number] [place] [phone] 14 Mar, 2015 [facility] [address] [place] [id number] [place] [phone] Mar, [facility] [id number] [place] [id number] 13 Mar, 2015 Pyelonephritis N12 ; Left-sided thoracic back pain M54.6 ; Hematuria, unspecified R31.9 and Kidney stone N20.0 [facility] [address] [id number] [place] [phone] 12 Mar, 2015 History of weight loss surgery Z98.84 [facility] [address] [id number] 07 Mar, 2015 History of weight loss surgery Z98.84 and Hyperlipidemia, unspecified E78.5 [facility] [address] [place] [place] [id number] [place] [phone] Mar, Low back pain M54.5 ; Chronic prescription opiate use Z79.899 ; Hyperlipidemia, unspecified E78.5 ; Spasm of back muscles M62.830 and History of weight loss surgery Z98.84 [facility] [id number] [place] [phone] Jan, [facility] [id number] [place] [phone] Jan, [facility] [address] [place] [id number] [place] [address] Jan, [facility] [id number] [place] [address] Dec, [facility] [id number] [place] [id number] Dec, [facility] [id number] [place] [address] Dec, [facility] [id number] [place] [address] Nov, [facility] [id number] [place] [address] Nov, Obstructive sleep apnea syndrome G47.33 and Pharyngoesophageal dysphagia R13.14 [facility] [id number] [place] [address] Nov, [facility] [id number] [place] [address] Nov, [facility] [id number] [place] [address] Nov, [facility] [id number] [place] [id number] Oct, Dental examination V72.2 [facility] [id number] [place] [address] Oct, [facility] [id number] [place] [id number] Oct, [facility] [id number] [place] [id number] Oct, [facility] [id number] [place] [address] Oct, [facility] [id number] [place] [address] Oct, BPH (benign prostatic hyperplasia) 600.00 and Urinary frequency 788.41 [facility] [id number] [place] [address] Oct, [facility] [id number] [place] [id number] Oct, [facility] [id number] [place] [address] Oct, [facility] [id number] [place] [address] Sep, Cerumen impaction 380.4 ; Cerumen debris on tympanic membrane 380.4 ; Psoriasis 696.1 and MICKY (secretory otitis media) 381.4 [facility] [id number] [place] [id number] Sep, Dental examination V72.2 [facility] [id number] [place] [address] Sep, Fatigue 780.79 ; Irritable bowel syndrome 564.1 ; Overweight 278.02 ; Poor sleep V69.4 ; Shaking spells 781.0 and Broken tooth 873.63 [facility] [id number] [place] [id number] Sep, [facility] [id number] [place] [id number] Sep, [facility] [id number] [place] [address] Aug, [facility] [id number] [place] [id number] Jul, [facility] [id number] [place] [address] Jul, [facility] [id number] [place] [id number] Jul, [facility] [id number] [place] [id number] Jul, [facility] [id number] [place] [id number] June, Arthritis of knee, right 716.96 [facility] [id number] [place] [id number] June, [facility] [id number] [place] [id number] June, Elevated blood pressure reading without diagnosis of hypertension 796.2 [facility] [id number] [place] [phone] June, [facility] [place] [facility] [address] [id number] [place] [address] June, [facility] [place] [facility] [address] [id number] [place] [address] June, [facility] [place] [facility] [address] [id number] [place] [address] June, [facility] [place] [facility] [address] [id number] [place] [address] May, [facility] [place] [facility] [address] [id number] [place] [address] May, [facility] [place] [facility] [address] [id number] [place] [address] Apr, [facility] [place] [facility] [address] [id number] [place] [address] Apr, [facility] [place] [facility] [address] [id number] [place] [address] Apr, [facility] [place] [facility] [address] [id number] [place] [address] Apr, [facility] [place] [facility] [address] [id number] [place] [address] Apr, [facility] [place] [facility] [address] [id number] [place] [address] Apr, [facility] [place] [facility] [address] [id number] [place] [address] Apr, [facility] [place] [facility] [address] [id number] [place] [address] Apr, [facility] [place] [facility] [address] [id number] [place] [address] Apr, [facility] [place] [facility] [address] [id number] [place] [address] Apr, [facility] [place] [facility] [address] [id number] [place] [address] Apr, 2014 [facility] [place] [facility] [address] [id number] [place] [address] Apr, 2014 [facility] [place] [facility] [address] [id number] [place] [address] 24 Apr, 2014 [facility] [place] [facility] [address] [id number] [place] [address] 24 Apr, 2014 [facility] [place] [facility] [address] [id number] [place] [address] 23 Apr, 2014 [facility] [place] [facility] [address] [id number] [place] [address] 23 Apr, 2014 [facility] [place] [facility] [address] [facility] [id number] [place] [address] 20 Apr, 2014 [facility] [place] [facility] [address] [facility] [id number] [place] [address] 20 Apr, 2014 [facility] [place] [facility] [address] [facility] [id number] [place] [address] 18 Apr, 2014 [facility] [place] [facility] [address] [facility] [id number] [place] [address] 18 Apr, 2014 [facility] [place] [facility] [address] [facility] [id number] [place] [address] 13 Apr, 2014 [facility] [place] [facility] [address] [facility] [id number] [place] [address] 13 Apr, 2014 [facility] [place] [facility] [address] [facility] [id number] [place] [address] 13 Apr, 2014 [facility] [place] [facility] [address] [id number] [place] [address] 13 Apr, 2014 [facility] [place] [facility] [address] [facility] [id number] [place] [address] 12 Apr, 2014 [facility] [place] [facility] [address] [facility] [id number] [place] [address] Apr, 2014 [facility] [place] [facility] [address] [id number] [place] [address] Apr, 2014 [facility] [place] [facility] [address] [id number] [place] [address] Apr, 2014 [facility] [place] [facility] [address] [id number] [place] [address] Apr, 2014 [facility] [place] [facility] [address] [id number] [place] [address] Apr, 2014 [facility] [place] [facility] [address] [id number] [place] [address] Apr, 2014 [facility] [place] [facility] [address] [facility] [id number] [place] [address] Apr, 2014 [facility] [place] [facility] [address] [facility] [id number] [place] [address] Apr, 2014 [facility] [place] [facility] [address] [facility] [id number] [place] [address] Mar, [facility] [place] [facility] [address] [facility] [id number] [place] [address] Mar, [facility] [place] [facility] [address] [facility] [id number] [place] [address] Mar, [facility] [place] [facility] [address] [facility] [id number] [place] [address] Mar, [facility] [place] [facility] [address] [id number] [place] [address] Mar, [facility] [place] [facility] [address] [facility] [id number] [place] [address] Mar, [facility] [place] [facility] [address] [facility] [id number] [place] [address] Mar, [facility] [place] [facility] [address] [facility] [id number] [place] [address] Mar, [facility] [place] [facility] [address] [id number] [place] [address] Mar, [facility] [place] [facility] [address] [id number] [place] [address] Mar, [facility] [place] [facility] [address] [facility] [id number] [place] [address] Jan, [facility] [place] [facility] [address] [id number] [place] [address] Jan, [facility] [place] [facility] [address] [id number] [place] [address] Jan, [facility] [place] [facility] [address] [id number] [place] [address] Jan, [facility] [place] [facility] [address] [id number] [place] [address] Jan, [facility] [place] [facility] [address] [id number] [place] [address] Jan, [facility] [place] [facility] [address] [id number] [place] [address] Jan, [facility] [place] [facility] [address] [id number] [place] [address] Jan, [facility] [place] [facility] [address] [id number] [place] [address] Jan, [facility] [place] [facility] [address] [id number] [address] Jan, [facility] [place] [facility] [address] [id number] [place] [address] Jan, [facility] [place] [facility] [address] [id number] [place] [address] Jan, [facility] [place] [facility] [address] [id number] [place] [address] Dec, [facility] [place] [facility] [address] [id number] [place] [address] Dec, [facility] [place] [facility] [address] [id number] [place] [address] Dec, [facility] [place] [facility] [address] [id number] [place] [address] Dec, [facility] [place] [facility] [address] [id number] [place] [address] Dec, [facility] [place] [facility] [address] [id number] [place] [address] Dec, [facility] [place] [facility] [address] [id number] [place] [address] Dec, [facility] [place] [facility] [address] [id number] [place] [address] Dec, [facility] [place] [facility] [address] [id number] [place] [address] Dec, [facility] [place] [facility] [address] [id number] [place] [address] Dec, [facility] [place] [facility] [address] [id number] [place] [address] Nov, [facility] [place] [facility] [address] [id number] [place] [address] Nov, [facility] [place] [facility] [address] [id number] [place] [address] Nov, [facility] [place] [facility] [address] [id number] [place] [address] Nov, [facility] [place] [facility] [address] [id number] [place] [address] Nov, [facility] [place] [facility] [address] [id number] [place] [address] Nov, [facility] [place] [facility] [address] [id number] [place] [address] Nov, [facility] [place] [facility] [address] [id number] [place] [address] Nov, [facility] [place] [facility] [address] [id number] [place] [address] Nov, [facility] [place] [facility] [address] [id number] [place] [address] Nov, [facility] [place] [facility] [address] [id number] [place] [address] Nov, [facility] [place] [facility] [address] [id number] [place] [address] Nov, [facility] [place] [facility] [address] [id number] [place] [address] Nov, [facility] [place] [facility] [address] [id number] [place] [address] Nov, [facility] [place] [facility] [address] [id number] [place] [address] Nov, [facility] [place] [facility] [address] [id number] [place] [address] Nov, [facility] [place] [facility] [address] [id number] [place] [address] Nov, [facility] [place] [facility] [address] [id number] [place] [address] Nov, [facility] [place] [facility] [address] [id number], [place] [address] Nov, [facility] [place] [facility] [address] [id number] [place] [address] Nov, [facility] [place] [facility] [address] [id number] [place] [address] Oct, [facility] [place] [facility] [address] [id number] [place] [address] Oct, [facility] [place] [facility] [address] [id number] [place] [address] Oct, [facility] [place] [facility] [address] [id number] [place] [address] Oct, [facility] [place] [facility] [address] [id number] [place] [address] Oct, [facility] [place] [facility] [address] [id number] [place] [address] Oct, [facility] [place] [facility] [address] [id number] [place] [address] Oct, [facility] [place] [facility] [address] [id number] [place] [address] Oct, [facility] [place] [facility] [address] [id number] [place] [address] Oct, [facility] [place] [facility] [address] [id number] [place] [address] Oct, [facility] [place] [facility] [address] [id number] [place] [address] Sep, [facility] [place] [facility] [address] [id number] [place] [address] Sep, [facility] [place] [facility] [address] [id number] [place] [address] Sep, [facility] [place] [facility] [address] [id number] [place] [address] Sep, [facility] [place] [facility] [address] [id number] [place] [address] Sep, [facility] [place] [facility] [address] [id number] [place] [address] Sep, [facility] [place] [facility] [address] [id number] [place] [address] Sep, [facility] [place] [facility] [address] [id number] [place] [address] Sep, [facility] [place] [facility] [address] [id number] [place] [address] Sep, [facility] [place] [facility] [address] [id number] [place] [address] Sep, [facility] [place] [facility] [address] [id number] [place] [address] Sep, [facility] [place] [facility] [address] [id number] [place] [address] Sep, [facility] [place] [facility] [address] [id number] [place] [address] Sep, [facility] [place] [facility] [address] [id number] [place] [address] Sep, [facility] [place] [facility] [address] [id number] [place] [address] Sep, [facility] [place] [facility] [address] [id number] [place] [address] Sep, [facility] [place] [facility] [address] [id number] [place] [address] Sep, [facility] [place] [facility] [address] [id number] [place] [address] Sep, [facility] [place] [facility] [address] [id number] [place] [address] Sep, [facility] [place] [facility] [address] [id number] [place] [address] Sep, [facility] [place] [facility] [address] [id number] [place] [address] Sep, [facility] [place] [facility] [address] [id number] [place] [address] Sep, [facility] [place] [facility] [address] [id number] [place] [address] Sep, [facility] [place] [facility] [address] [id number] [place] [address] Sep, [facility] [place] [facility] [address] [id number] [place] [address] Sep, [facility] [place] [facility] [address] [id number] [place] [address] Aug, [facility] [place] [facility] [address] [id number] [place] [address] Aug, [facility] [place] [facility] [address] [id number] [place] [address] Aug, [facility] [place] [facility] [address] [id number] [place] [address] Aug, [facility] [place] [facility] [address] [id number] [place] [address] Aug, [facility] [place] [facility] [address] [id number] [place] [address] Aug, [facility] [place] [facility] [address] [id number] [place] [address] Aug, [facility] [place] [facility] [address] [id number] [place] [address] Aug, [facility] [place] [facility] [address] [id number] [place] [address] Aug, [facility] [place] [facility] [address] [id number] [place] [address] Aug, [facility] [place] [facility] [address] [id number] [place] [address] Aug, [facility] [place] [facility] [address] [id number] [place] [address] Aug, [facility] [place] [facility] [address] [id number] [place] [address] Aug, [facility] [place] [facility] [address] [id number] [place] [address] Jul, [facility] [place] [facility] [address] [id number] [place] [address] Jul, [facility] [place] [facility] [address] [id number] [place] [address] Jul, [facility] [place] [facility] [address] [id number] [place] [address] Jul, [facility] [place] [facility] [address] [id number] [place] [address] Jul, [facility] [place] [facility] [address] [id number] [place] [address] Jul, [facility] [place] [facility] [address] [id number] [place] [address] Jul, [facility] [place] [facility] [address] [id number] [place] [address] June, [facility] [place] [facility] [address] [id number] [place] [address] June, [facility] [place] [facility] [address] [id number] [place] [address] June, [facility] [place] [facility] [address] [id number] [place] [address] June, [facility] [place] [facility] [address] [id number] [place] [address] May, [facility] [place] [facility] [address] [id number] [place] [address] May, [facility] [place] [facility] [address] [id number] [place] [address] May, [facility] [place] [facility] [address] [id number] [place] [address] May, [facility] [place] [facility] [address] [id number] [place] [address] May, [facility] [place] [facility] [address] [id number] [place] [address] May, [facility] [place] [facility] [address] [id number] [place] [address] May, [facility] [place] [facility] [address] [id number] [place] [address] May, [facility] [place] [facility] [address] [id number] [place] [address] May, [facility] [place] [facility] [address] [id number] [place] [address] May, [facility] [place] [facility] [address] [id number] [place] [address] Apr, [facility] [place] [facility] [address] [id number] [place] [address] Apr, [facility] [place] [facility] [address] [facility] [id number] [place] [address] Apr, [facility] [place] [facility] [address] [id number] [place] [address] Apr, [facility] [place] [facility] [address] [id number] [place] [address] Apr, [facility] [place] [facility] [address] [facility] [id number] [place] [address] Apr, [facility] [place] [facility] [address] [facility] [id number] [place] [address] Apr, [facility] [place] [facility] [address] [id number], [place] [address] Apr, [facility] [place] [facility] [address] [id number] [place] [address] Apr, [facility] [place] [facility] [address] [id number] [place] [address] Apr, [facility] [place] [facility] [address] [facility] [id number] [place] [address] Mar, [facility] [place] [facility] [address] [id number], [place] [address] Mar, [facility] [address] [id number] [place] [address] Mar, [facility] [address] [id number] [place] [address] Mar, [facility] [address] [facility] [id number] [place] [address] Mar, [facility] [address] [id number] [place] [address] Mar, [facility] [address] [id number] [place] [address] Jan, [facility] [address] [id number] [place] [address] Jan, [facility] [address] [facility] [id number] [place] [address] Jan, [facility] [address] [id number] [place] [address] Jan, [facility] [address] [facility] [id number] [place] [address] Jan, [facility] [address] [facility] [id number] [place] [address] Jan, [facility] [address] [facility] [id number] [place] [address] Jan, [facility] [place] [facility] [address] [id number], [place] [address] Jan, [facility] [place] [facility] [address] [id number] [place] [address] Jan, [facility] [place] [facility] [address] [facility] [id number] [place] [address] Dec, [facility] [place] [facility] [address] [facility] [id number] [place] [address] Dec, [facility] [place] [facility] [address] [id number] [place] [address] Dec, [facility] [place] [facility] [address] [id number] [place] [address] Dec, [facility] [place] [facility] [address] [id number] [place] [address] Dec, [facility] [place] [facility] [address] [id number] [place] [address] Dec, [facility] [place] [facility] [address] [id number] [place] [address] Dec, [facility] [place] [facility] [address] [id number] [place] [address] Dec, [facility] [place] [facility] [address] [id number] [place] [address] Dec, [facility] [place] [facility] [address] [id number] [place] [address] Dec, [facility] [place] [facility] [address] [id number] [place] [address] Dec, [facility] [place] [facility] [address] [id number] [place] [address] Nov, [facility] [place] [facility] [address] [id number] [place] [address] Nov, [facility] [place] [facility] [address] [id number] [place] [address] Nov, [facility] [place] [facility] [address] [id number] [place] [address] Nov, [facility] [place] [facility] [address] [id number] [place] [address] Nov, [facility] [place] [facility] [address] [id number] [place] [address] 11 Oct, 2012 [facility] [place] [facility] [address] [id number] [place] [address] Oct, [facility] [address] [id number] [place] [address] Sep, [facility] [place] [facility] [address] [id number] [place] [address] Aug, [facility] [place] [facility] [address] [id number] [place] [address] Aug, [facility] [place] [facility] [address] [id number] [place] [address] Aug, [facility] [address] [id number] [place] [address] Aug, [facility] [address] [id number] [place] [address] Jul, [facility] [place] [facility] [address] [id number] [place] [address] Jul, [facility] [place] [facility] [address] [id number] [place] [address] June, [facility] [place] [facility] [address] [id number] [place] [address] June, [facility] [place] [facility] [address] [id number] [place] [address] June, [facility] [place] [facility] [address] [id number] [place] [address] May, [facility] [place] [facility] [address] [id number], [place] [address] May, [facility] [place] [facility] [address] [id number] [place] [address] May, [facility] [place] [facility] [address] [id number] [place] [address] Apr, [facility] [place] [facility] [address] [id number] [place] [address] Apr, [facility] [place] [facility] [address] [id number] [place] [address] 15 Apr, 2012 [facility] [address] [id number] [place] [address] 14 Apr, 2012 [facility] [place] [facility] [address] [id number] [place] [address] 12 Apr, 2012 [facility] [address] [id number] [place] [address] 27 Apr, 2012 [facility] [place] [facility] [address] [id number] [place] [address] Apr, [facility] [address] [id number] [place] [address] Apr, [facility] [place] [facility] [address] [id number] [place] [address] Apr, [facility] [address] [id number] [place] [address] Apr, [facility] [address] [id number] [place] [address] Apr, [facility] [place] [facility] [address] [id number] [place] [address] Apr, [facility] [place] [facility] [address] [id number] [place] [address] Apr, [facility] [place] [facility] [address] [id number] [place] [address] Mar, [facility] [place] [facility] [address] [id number] [place] [address] Mar, [facility] [place] [facility] [address] [id number] [place] [address] 16 Mar, 2012 [facility] [place] [facility] [address] [id number] [place] [address] Mar, [facility] [place] [facility] [address] [id number] [place] [address] Mar, [facility] [address] [id number] [place] [address] Jan, [facility] [place] [facility] [address] [id number] [place] [address] Jan, [facility] [place] [facility] [address] [id number] [place] [address] Jan, [facility] [place] [facility] [address] [id number] [place] [address] Jan, [facility] [address] [id number] [place] [address] 14 Jan, 2012 [facility] [place] [facility] [address] [id number] [place] [address] Jan, [facility] [place] [facility] [address] [id number] [place] [address] Jan, [facility] [place] [facility] [address] [id number] [place] [address] Jan, [facility] [place] [facility] [address] [id number] [place] [address] Jan, [facility] [place] [facility] [address] [id number] [place] [address] Jan, [facility] [place] [facility] [address] [id number], [place] [address] Jan, [facility] [place] [facility] [address] [id number], [place] [address] Jan, [facility] [place] [facility] [address] [id number] [place] [address] Jan, [facility] [place] [facility] [address] [id number] [place] [address] Jan, [facility] [place] [facility] [address] [id number] [place] [address] Dec, [facility] [place] [facility] [address] [id number] [place] [address] 26 Jan, 2012 [facility] [place] [facility] [address] [id number] [place] [address] 19 Jan, 2012 [facility] [place] [facility] [address] [id number] [place] [address] 19 Jan, 2012 [facility] [place] [facility] [address] [id number] [place] [address] 15 Jan, 2012 [facility] [place] [facility] [address] [id number] [place] [address] 15 Jan, 2012 [facility] [place] [facility] [address] [id number] [place] [address] 14 Jan, 2012 [facility] [place] [facility] [address] [id number] [place] [address] 14 Jan, 2012 [facility] [place] [facility] [address] [id number] [place] [address] 14 Jan, 2012 [facility] [place] [facility] [address] [id number] [place] [address] 14 Jan, 2012 [facility] [place] [facility] [address] [id number] [place] [address] 07 Jan, 2012 [facility] [place] [facility] [address] [facility] [id number] [place] [address] 07 Jan, 2012 [facility] [place] [facility] [address] [id number] [place] [address] 16 Dec, 2011 [facility] [place] [facility] [address] [id number], [place] [address] 16 Dec, 2011 [facility] [place] [facility] [address] [id number] [place] [address] 13 Sep2011 [facility] [place] [facility] [address] [id number] [place] [address] 13 Sep2011 [facility] [place] [facility] [address] [id number], [place] [address] 13 Nov, 2011 [facility] [place] [facility] [address] [id number] [place] [address] Oct, [facility] [place] [facility] [address] [id number] [place] [address] Sep, [facility] [place] [facility] [address] [id number] [place] [address] Sep, [facility] [place] [facility] [address] [id number] [place] [address] Aug, [facility] [address] [id number] [place] [address] Aug, [facility] [place] [facility] [address] [id number] [place] [address] Aug, [facility] [address] [id number] [place] [address] Aug, [facility] [address] [id number] [place] [address] June, [facility] [place] [facility] [address] [id number] [place] [address] June, [facility] [address] [id number] [place] [address] May, [facility] [place] [facility] [address] [id number] [place] [address] Apr, [facility] [place] [facility] [address] [id number] [place] [address] Apr, [facility] [place] [facility] [address] [id number] [place] [address] Apr, [facility] [place] [facility] [address] [id number] [place] [address] Apr, [facility] [place] [facility] [address] [id number] [place] [address] Apr, [facility] [place] [facility] [address] [id number], [place] [address] Apr, [facility] [address] [id number] [place] [address] Mar, [facility] [place] [facility] [address] [id number] [place] [address] Mar, [facility] [place] [facility] [address] [id number] [place] [address] Mar, [facility] [place] [facility] [address] [id number] [place] [address] Jan, [facility] [place] [facility] [address] [id number] [place] [address] Jan, [facility] [place] [facility] [address] [id number] [place] [address] Jan, [facility] [place] [facility] [address] [id number] [place] [address] Jan, [facility] [place] [facility] [address] [id number] [place] [address] Jan, [facility] [place] [facility] [address] [id number] [place] [address] Jan, [facility] [place] [facility] [address] [id number] [place] [address] Jan, [facility] [place] [facility] [address] [id number], [place] [address] Dec, [facility] [place] [facility] [address] [id number], [place] [address] Dec, [facility] [place] [facility] [address] [id number], [place] [address] Nov, [facility] [place] [facility] [address] [id number] [place] [address] Nov, [facility] [place] [facility] [address] [id number] [place] [address] Nov, [facility] [place] [facility] [address] [id number] [place] [address] 12 Nov, 2010 [facility] [address] [id number] [place] [address] 12 Oct, 2010 [facility] [place] [facility] [address] [id number] [place] [address] Sep, [facility] [place] [facility] [address] [id number] [place] [address] Mar, [facility] [place] [facility] [address] [id number] [place] [address] Jan, [facility] [place] [facility] [address] [id number] [place] [address] Dec, [facility] [place] [facility] [address] [id number] [place] [address] Dec, [facility] [place] [facility] [address] [id number] [place] [address] Dec, [facility] [place] [facility] [address] [id number] [place] [address] Dec, [facility] [place] [facility] [address] [id number] [place] [address] 26 Nov, 2009 [facility] [place] [facility] [address] [id number] [place] [address] 15 Nov, 2009 [facility] [place] [facility] [address] [id number] [place] [address] 14 Nov, 2009 [facility] [place] [facility] [address] [id number] [place] [address] 14 Nov, 2009 [facility] [place] [facility] [address] [id number] [place] [address] 13 Oct, 2009 [facility] [place] [facility] [address] [id number] [place] [address] Jul, [facility] [place] [facility] [address] [id number] [place] [address] June, [facility] [id number], [place] [address] June, [facility] [id number], [place] [address] 17 Apr, 2009 [facility] [id number], [place] [address] Mar, [facility] [id number] [place] [address] Jan, [facility] [id number] [place] [address] Jan, [facility] [id number] [place] [address] Dec, [facility] [id number] [place] [address] Dec, [facility] [id number] [place] [address] Dec, [facility] [id number] [place] [address] Dec, [facility] [id number], [place] [address] Nov, [facility] [id number], [place] [address] Jul, [facility] [id number], [place] [address] June, IMMUNIZATIONS No Known Immunizations SOCIAL HISTORY Never Assessed REASON FOR VISIT EMR-[facility] PLAN OF CARE VITAL SIGNS MEDICATIONS Unknown Medications RESULTS No Results PROCEDURES No Known procedures INSTRUCTIONS MEDICATIONS ADMINISTERED No Known Medications MEDICAL (GENERAL) HISTORY Type Description Date Medical History hypertension Medical History sleep apnea-did not tolerate CPAP Medical History oxygen dependent at [facility] Medical History colonic polyps Medical History hyperlipidemia [...]
--- OUTSIDE RECORDS SUMMARY | 2018-08-23 17:04 | XMS REPORT ---
Author Author Migration, Doctor Organization [facility] Address Unknown Phone Unavailable Care Team Providers Care Supervisor Wound Name Role Phone Migration, Doctor Unavailable Unavailable PROBLEMS Type Condition ICD9-CM Code [id number] Code Onset Dates Condition Status SNOMED Code Problem Pulmonary asbestosis J61 Active 60243060 Problem Renal cyst, left N28.1 Active 29021957 Problem Left ventricular diastolic dysfunction I51.9 Active 866502634 Problem Urge incontinence N39.41 Active 429645776 Problem Anxiety F41.9 Active 07739166 Problem Low back pain M54.5 Active 008626188 Problem Age-related osteoporosis without current pathological fracture M81.0 Active 33838615 Problem History of diverticulitis Z87.19 Active 535998348448358 Problem Allergic rhinitis, unspecified allergic rhinitis type J30.9 Active 74565240 Problem Nephrolithiasis N20.0 Active 47246481 Problem Nocturnal hypoxia G47.34 Active 284723298 Problem Psoriasis L40.9 Active 9866614 Problem Essential hypertension I10 Active 46159385 Problem Chronic gout, unspecified cause, unspecified site M1A.9XX0 Active 53493883 Problem Esophageal stricture K22.2 Active 07009257 Problem Obstructive sleep apnea syndrome G47.33 Active 88327509 Problem History of weight loss surgery Z98.84 Active 109878502 Problem 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 Active 42550350 Problem Chronic prescription opiate use Z79.899 Active 874396256 Problem Moderate episode of recurrent major depressive disorder F33.1 Active 711727976 Problem Chronic obstructive pulmonary disease, unspecified COPD type J44.9 Active 60635798 Problem Primary insomnia F51.01 Active 336188388 Problem Neuropathy G62.9 Active 207117318 Problem Cervicalgia M54.2 Active 1474303642964 Problem Hyperlipidemia, unspecified E78.5 Active 72114224 Problem Benign prostatic hyperplasia, presence of lower urinary tract symptoms unspecified, unspecified morphology N40.0 Active 369316502 Problem Acute right-sided low back pain with right-sided sciatica M54.41 Active 336927463 Problem Erectile dysfunction due to diseases classified elsewhere N52.1 Active 454453344 Problem Hammertoe of left foot M20.42 Active 325501027 ALLERGIES No Information ENCOUNTERS Encounter Location Date Diagnosis [place] [id number] [place] [address] Jul, [place] [address] [address] June, [place] [address] [address] May, Morbid obesity E66.01 ; Moderate episode of recurrent major depressive disorder F33.1 and Neuropathy G62.9 [place] [address] [address] May, Onychomycosis B35.1 ; Neuropathy G62.9 and Closed nondisplaced fracture of metatarsal bone of left foot, unspecified metatarsal, initial encounter S92.302A [place] [address] [address] May, [place] [address] [address] Apr, Moderate episode of recurrent major depressive disorder F33.1 ; Morbid obesity E66.01 ; Hyperlipidemia, unspecified E78.5 ; Primary insomnia F51.01 and Low back pain M54.5 [place] [id number] [place] [address] Apr, Primary insomnia F51.01 [place] [address] [address] Apr, Anxiety F41.9 [place] [address] [address] Apr, Low back pain M54.5 [place] [address] [address] Apr, Anxiety F41.9 [facility] [id number] [place] [address] Mar, Moderate episode of recurrent major depressive disorder F33.1 ; BMI 50.0-59.9, adult Z68.43 ; Anxiety F41.9 and Chronic prescription opiate use Z79.899 [facility] [id number] [place] [address] Mar, Onychomycosis B35.1 ; Neuropathy G62.9 and Impaired circulation I99.9 [facility] [id number] [place] [address] Mar, Low back pain M54.5 [place] [address] [address] Mar, Anxiety F41.9 [place] [id number] [place] [address] Jan, BMI 50.0-59.9, adult Z68.43 ; Chronic obstructive pulmonary disease, unspecified COPD type J44.9 ; Low back pain M54.5 and Moderate episode of recurrent major depressive disorder F33.1 [place] [id number] [place] [address] Jan, [facility] [id number] [place] [address] Jan, [facility] [address] [address] Dec, Anxiety F41.9 [facility] [id number] [place] [address] Dec, [facility] [address] [address] Dec, Anxiety F41.9 [facility] [id number] [place] [address] Dec, [facility] [id number] [place] [address] Dec, Encounter for immunization Z23 [facility] [place] [id number] [place] [address] Dec, [place] [id number] [place] [address] Dec, Hammertoe of left foot M20.42 ; Edema of left foot R60.0 and Onychomycosis B35.1 [facility] [place] [id number] [place] [address] Nov, BMI 50.0-59.9, adult Z68.43 [place] [id number] [place] [address] Nov, [place] [id number] [place] [address] Nov, [place] [id number] [place] [address] Nov, Anxiety F41.9 [place] [id number] [place] [address] Oct, [place] [id number] [place] [address] Oct, [place] [id number] [place] [address] Oct, BMI 45.0-49.9, adult Z68.42 ; Essential hypertension I10 ; Hyperlipidemia, unspecified E78.5 ; Anxiety F41.9 ; Obstructive sleep apnea syndrome G47.33 ; Moderate episode of recurrent major depressive disorder F33.1 ; Left ventricular diastolic dysfunction I51.9 ; Acute pain of right shoulder M25.511 ; Pain of left foot M79.672 and Pain in right foot M79.671 [place] [id number] [place] [address] Oct, Anxiety F41.9 [facility] [id number] [address] Sep, Left foot pain M79.672 [facility] [id number] [place] [address] Sep, [facility] [id number] [place] [address] Sep, Anxiety F41.9 [facility] [id number] [place] [address] Sep, [facility] [id number] [place] [address] Aug, [facility] [id number] [place] [address] Aug, [facility] [id number] [place] [address] Aug, Anxiety F41.9 [facility] [id number] [place] [address] Aug, [facility] [id number] [place] [address] Jul, [facility] [id number] [place] [address] Jul, Anxiety F41.9 [facility] [id number] [place] [address] June, Anxiety F41.9 [facility] [id number] [place] [address] June, [facility] [id number] [place] [address] June, Low back pain M54.5 ; Chronic prescription opiate use Z79.899 ; Candidal intertrigo B37.2 ; Urge incontinence N39.41 ; Essential hypertension I10 ; Moderate episode of recurrent major depressive disorder F33.1 ; Age-related osteoporosis without current pathological fracture M81.0 and BMI 45.0-49.9, adult Z68.42 [facility] [id number] [place] [address] June, [facility] [id number] [place] [address] May, Anxiety F41.9 [facility] [id number] [place] [address] May, [facility] [address] [address] May, [facility] [id number] [place] [address] Apr, Anxiety F41.9 [facility] [id number] [place] [address] Apr, [facility] [address] [address] Apr, Low back pain M54.5 [facility] [id number] [place] [address] Apr, [facility] [id number] [place] [address] Apr, [facility] [id number] [place] [address] Apr, Anxiety F41.9 [facility] [id number] [place] [address] Apr, Right groin pain R10.31 [facility] [id number] [place] [address] Mar, [facility] [id number] [place] [address] Mar, [facility] [id number] [place] [address] Mar, Anxiety F41.9 [place] [id number] [place] [address] Mar, Low back pain M54.5 [place] [id number] [place] [address] Mar, Right groin pain R10.31 ; Low back pain M54.5 and BMI 45.0-49.9, adult Z68.42 [place] [address] [address] Mar, [place] [id number] [place] [address] Mar, [place] [id number] [place] [address] Mar, [facility] [address] [id number] [place] [address] Mar, [facility] [address] [place] [address] [id number] [place] [address] Mar, Cough R05 ; Pneumonia of right lower lobe due to infectious organism J18.1 and Abnormal chest x-ray R93.8 [place] [address] [id number] [place] [address] Mar, [place] [address] [id number] [place] [address] Mar, [place] [id number] [place] [address] Jan, Anxiety F41.9 [place] [id number] [place] [address] Jan, [place] [id number] [place] [address] Jan, Moderate episode of recurrent major depressive disorder F33.1 [place] [address] [id number] [place] [address] 20 Dec, 2017 Subacromial bursitis of right shoulder joint M75.51 ; Shortness of breath on exertion R06.02 and BMI 45.0-49.9, adult Z68.42 [facility] [id number] [place] [address] Dec, Anxiety F41.9 [facility] [address] [id number] [place] [address] Dec, [facility] [address] [address] Dec, Low back pain M54.5 [facility] [address] [address] Oct, Low back pain M54.5 [facility] [id number] [place] [address] Sep, [facility] [address] [address] Sep, Erectile dysfunction due to diseases classified elsewhere N52.1 [facility] [id number] [place] [address] Sep, Erectile dysfunction due to diseases classified elsewhere N52.1 [facility] [id number] [place] [address] Sep, [facility] [id number] [place] [address] Sep, Erectile dysfunction due to diseases classified elsewhere N52.1 [facility] [address] [id number] [place] [address] Sep, Low back pain M54.5 and Anxiety F41.9 [facility] [id number] [place] [address] Aug, Acute allergic rhinitis J30.9 [facility] [id number] [place] [address] Aug, [facility] [id number] [place] [address] Aug, Anxiety F41.9 [facility] [address] [address] Jul, Low back pain M54.5 ; Chronic prescription opiate use Z79.899 and Essential hypertension I10 [facility] [id number] [place] [address] Jul, Anxiety F41.9 and Low back pain M54.5 [facility] [id number] [place] [address] June, [facility] [address] [address] June, Anxiety F41.9 [facility] [id number] [place] [address] May, Low back pain M54.5 [facility] [id number] [place] [address] May, [facility] [id number] [place] [address] May, Anxiety F41.9 [facility] [id number] [place] [address] Apr, [facility] [id number] [place] [address] Apr, Low back pain M54.5 [facility] [id number] [place] [address] Apr, Moderate episode of recurrent major depressive disorder F33.1 [facility] [id number] [place] [address] Apr, Anxiety F41.9 [facility] [id number] [place] [address] Apr, Low back pain M54.5 [facility] [id number] [place] [address] 15 Apr, 2016 Elevated alkaline phosphatase level R74.8 [place] [id number] [place] [address] 10 Apr, 2016 Alkaline phosphatase elevation R74.8 [place] [address] [id number] [place] [address] 06 Apr, 2016 Anxiety F41.9 [place] [id number] [place] [address] 03 Apr, 2016 Low back pain M54.5 [place] [address] [id number] [place] [address] 03 Apr, 2016 History of weight loss surgery Z98.84 ; Encounter for hepatitis C screening test for low risk patient Z11.59 ; History of herpes genitalis Z86.19 ; Essential hypertension I10 ; Hyperlipidemia, unspecified E78.5 ; Exposure to STD Z20.2 and Benign prostatic hyperplasia, presence of lower urinary tract symptoms unspecified, unspecified morphology N40.0 [place] [id number] [place] [address] Apr, [facility] [address] [place] [id number] [place] [address] Mar, [place] [id number] [place] [address] Mar, [place] [address] [place] [id number] [place] [address] Mar, [facility] [address] [place] [id number] [place] [address] Mar, Acute right-sided low back pain with right-sided sciatica M54.41 [facility] [address] [id number] [place] [address] Mar, Low back pain M54.5 [facility] [id number] [place] [address] Mar, Muscle strain of chest wall, initial encounter S29.011A ; Muscle strain of right thigh, initial encounter S76.911A and Acute non-recurrent maxillary sinusitis J01.00 [place] [address] [address] [id number] [place] [address] Mar, Benign prostatic hyperplasia, presence of lower urinary tract symptoms unspecified, unspecified morphology N40.0 [place] [address] [place] [id number] [place] [address] Jan, Low back pain M54.5 [place] [address] [place] [id number] [place] [address] Jan, Low back pain M54.5 ; Essential hypertension I10 ; Hyperlipidemia, unspecified E78.5 ; Anxiety F41.9 ; Moderate episode of recurrent major depressive disorder F33.1 ; Primary insomnia F51.01 ; Exposure to STD Z20.2 ; Encounter for hepatitis C screening test for low risk patient Z11.59 and History of herpes genitalis Z86.19 [place] [address] [place] [id number] [place] [address] Dec, [place] [address] [place] [id number] [place] [address] Nov, [place] [address] [place] [id number] [place] [address] Nov, Anxiety F41.9 ; Cervicalgia M54.2 ; Moderate episode of recurrent major depressive disorder F33.1 and Encounter for immunization Z23 [place] [address] [id number] [place] [address] Oct, [place] [address] [address] Oct, [place] [address] [place] [id number] [place] [address] 16 Nov, 2015 [place] [address] [address] Oct, [facility] [address] [address] Sep, [facility] [id number] [place] [address] Aug, Low back pain M54.5 ; Anxiety F41.9 ; Primary insomnia F51.01 and Chronic prescription opiate use Z79.899 [facility] [id number] [place] [address] Jul, [facility] [id number] [place] [address] Jul, [facility] [id number] [place] [address] Jul, [facility] [address] [place] [id number] [place] [address] Jul, [facility] [id number] [place] [address] Jul, [facility] [id number] [place] [address] June, [facility] [address] [place] [id number] [place] [address] June, [facility] [address] [address] June, [facility] [id number] [place] [address] June, [facility] [address] [address] May, Preoperative cardiovascular examination Z01.810 [facility] [id number] [address] May, [facility] [id number] [address] Apr, [facility] [address] [address] 31 May, 2015 Osteoarthritis of right knee M17.9 [facility] [id number] [place] [address] 30 May, 2015 [facility] [id number] [place] [address] 16 May, 2015 [facility] [id number] [place] [address] Apr, [facility] [id number] [place] [address] Apr, [facility] [address] [place] [id number] [place] [address] 08 May, 2015 History of excessive cerumen Z78.9 ; Obstructive sleep apnea syndrome G47.33 ; History of diverticulitis Z87.19 and Nephrolithiasis N20.0 [facility] [id number] [place] [address] 29 Apr, 2015 [facility] [id number] [place] [address] 23 Apr, 2015 Abdominal pain R10.9 [facility] [id number] [place] [address] 10 Apr, 2015 [facility] [id number] [place] [address] 04 Apr, 2015 Osteoarthritis of right knee M17.9 [facility] [id number] [address] Mar, [facility] [id number] [place] [address] 15 Mar, 2015 [facility] [id number] [place] [address] 14 Mar, 2015 [facility] [id number] [place] [address] Mar, [facility] [id number] [place] [address] Mar, Pyelonephritis N12 ; Left-sided thoracic back pain M54.6 ; Hematuria, unspecified R31.9 and Kidney stone N20.0 [facility] [id number] [place] [address] Mar, History of weight loss surgery Z98.84 [facility] [id number] [place] [address] Mar, History of weight loss surgery Z98.84 and Hyperlipidemia, unspecified E78.5 [facility] [id number] [place] [address] Mar, Low back pain M54.5 ; Chronic prescription opiate use Z79.899 ; Hyperlipidemia, unspecified E78.5 ; Spasm of back muscles M62.830 and History of weight loss surgery Z98.84 [facility] [id number] [place] [address] Jan, [facility] [id number] [place] [phone] Jan, [facility] [id number] [place] [phone] Jan, [facility] [id number] [place] [phone] Dec, [facility] [id number] [place] [phone] Dec, [facility] [id number] [place] [phone] Dec, [facility] [id number] [place] [phone] Nov, [facility] [id number] [place] [phone] Nov, Obstructive sleep apnea syndrome G47.33 and Pharyngoesophageal dysphagia R13.14 [facility] [id number] [place] [id number] Nov, [facility] [id number] [place] [id number] Nov, [facility] [id number] [place] [phone] Nov, [facility] [address] [id number] Oct, 2014 Dental examination V72.2 [facility] [address] [phone] Oct, [facility] [id number] [place] [phone] Oct, [facility] [id number] [place] [phone] Oct, [facility] [id number] [place] [address] Oct, [facility] [id number] [place] [address] Oct, BPH (benign prostatic hyperplasia) 600.00 and Urinary frequency 788.41 [facility] [id number] [place] [address] Oct, [facility] [id number] [place] [address] Oct, [facility] [id number] [place] [address] Oct, [facility] [id number] [place] [address] Sep, Cerumen impaction 380.4 ; Cerumen debris on tympanic membrane 380.4 ; Psoriasis 696.1 and MICYK (secretory otitis media) 381.4 [facility] [id number] [id number] Sep, Dental examination V72.2 [facility] [id number] [place] [address] Sep, Fatigue 780.79 ; Irritable bowel syndrome 564.1 ; Overweight 278.02 ; Poor sleep V69.4 ; Shaking spells 781.0 and Broken tooth 873.63 [facility] [id number] [place] [address] Sep, [facility] [id number] [place] [address] Sep, [facility] [id number] [place] [address] Aug, [facility] [id number] [place] [address] Jul, [facility] [id number] [place] [address] Jul, [facility] [id number] [place] [address] Jul, [facility] [id number] [place] [address] Jul, [facility] [id number] [address] June, Arthritis of knee, right 716.96 [facility] [id number] [address] June, [facility] [id number] [place] [address] June, Elevated blood pressure reading without diagnosis of hypertension 796.2 [facility] [id number] [address] June, [facility] [id number] [place] [address] June, [facility] [place] [facility] [address] [id number] [place] [address] June, [facility] [place] [facility] [address] [id number] [place] [address] June, [facility] [place] [facility] [address] [id number] [place] [address] May, [facility] [place] [facility] [address] [id number] [place] [address] May, [facility] [place] [facility] [address] [id number] [place] [address] Apr, [facility] [place] [facility] [address] [id number] [place] [address] Apr, [facility] [place] [facility] [address] [id number] [place] [address] Apr, [facility] [place] [facility] [address] [id number] [place] [address] Apr, [facility] [place] [facility] [address] [id number] [place] [address] Apr, [facility] [place] [facility] [address] [id number] [place] [address] Apr, [facility] [place] [facility] [address] [id number] [address] Apr, [facility] [place] [facility] [address] [id number] [address] Apr, [facility] [place] [facility] [address] [id number] [place] [address] Apr, [facility] [place] [facility] [address] [id number] [place] [address] Apr, [facility] [place] [facility] [address] [id number] [place] [address] Apr, [facility] [place] [facility] [address] [facility] [id number] [place] [address] 27 Apr, 2014 [facility] [place] [facility] [address] [id number] [place] [address] 24 Apr, 2014 [facility] [place] [facility] [address] [facility] [id number] [place] [address] 24 Apr, 2014 [facility] [place] [facility] [address] [facility] [id number] [place] [address] 23 Apr, 2014 [facility] [place] [facility] [address] [facility] [id number] [place] [address] 23 Apr, 2014 [facility] [place] [facility] [address] [facility] [id number] [place] [address] 20 Apr, 2014 [facility] [place] [facility] [address] [id number] [place] [address] 20 Apr, 2014 [facility] [place] [facility] [address] [id number] [place] [address] 18 Apr, 2014 [facility] [place] [facility] [address] [facility] [id number] [place] [address] 18 Apr, 2014 [facility] [place] [facility] [address] [id number] [place] [address] 13 Apr, 2014 [facility] [place] [facility] [address] [id number] [address] 13 Apr, 2014 [facility] [place] [facility] [address] [facility] [id number] [address] 13 Apr, 2014 [facility] [place] [facility] [address] [facility] [id number] [place] [address] 13 Apr, 2014 [facility] [place] [facility] [address] [facility] [id number] [place] [address] 12 Apr, 2014 [facility] [place] [facility] [address] [facility] [id number] [address] 12 Apr, 2014 [facility] [place] [facility] [address] [id number] [address] Apr, 2014 [facility] [place] [facility] [address] [id number] [place] [address] Apr, 2014 [facility] [place] [facility] [address] [id number] [place] [address] Apr, 2014 [facility] [place] [facility] [address] [id number] [place] [address] Apr, 2014 [facility] [place] [facility] [address] [id number] [place] [address] Apr, 2014 [facility] [place] [facility] [address] [id number] [place] [address] Apr, 2014 [facility] [place] [facility] [address] [facility] [id number] [place] [address] Apr, [facility] [place] [facility] [address] [id number] [place] [address] Mar, [facility] [place] [facility] [address] [id number] [place] [address] Mar, [facility] [place] [facility] [address] [id number] [place] [address] Mar, [facility] [place] [facility] [address] [facility] [id number] [place] [address] Mar, [facility] [place] [facility] [address] [facility] [id number] [place] [address] Mar, [facility] [place] [facility] [address] [id number] [place] [address] Mar, [facility] [place] [facility] [address] [facility] [id number] [place] [address] Mar, [facility] [place] [facility] [address] [facility] [id number] [place] [address] Mar, [facility] [place] [facility] [address] [facility] [id number] [place] [address] Mar, [facility] [place] [facility] [address] [id number] [place] [address] Mar, [facility] [place] [facility] [address] [id number] [place] [address] Jan, [facility] [place] [facility] [address] [id number] [place] [address] Jan, [facility] [place] [facility] [address] [id number] [place] [address] Jan, [facility] [place] [facility] [address] [id number] [place] [address] Jan, [facility] [place] [facility] [address] [id number] [place] [address] Jan, [facility] [place] [facility] [address] [id number] [place] [address] Jan, [facility] [place] [facility] [address] [id number] [place] [address] Jan, [facility] [place] [facility] [address] [id number] [place] [address] Jan, [facility] [place] [facility] [address] [id number] [place] [address] Jan, [facility] [place] [facility] [address] [id number] [place] [address] Jan, [facility] [place] [facility] [address] [id number] [place] [address] Jan, [facility] [place] [facility] [address] [id number] [place] [address] Jan, [facility] [place] [facility] [address] [id number] [place] [address] Dec, [facility] [place] [facility] [address] [id number] [place] [address] Dec, [facility] [place] [facility] [address] [id number] [address] Dec, [facility] [place] [facility] [address] [id number] [place] [address] Dec, [facility] [place] [facility] [address] [id number] [place] [address] Dec, [facility] [place] [facility] [address] [id number] [place] [address] Dec, [facility] [place] [facility] [address] [id number] [place] [address] Dec, [facility] [place] [facility] [address] [id number] [place] [address] Dec, [facility] [place] [facility] [address] [id number] [place] [address] Dec, [facility] [place] [facility] [address] [facility] [id number] [place] [address] Dec, [facility] [place] [facility] [address] [id number] [place] [address] Nov, [facility] [place] [facility] [address] [facility] [id number] [place] [address] Nov, [facility] [place] [facility] [address] [facility] [id number] [place] [address] Nov, [facility] [place] [facility] [address] [id number] [address] Nov, [facility] [place] [facility] [address] [id number] [address] Nov, [facility] [place] [facility] [address] [id number] [address] Nov, [facility] [place] [facility] [address] [facility] [id number] [address] Nov, [facility] [place] [facility] [address] [facility] [id number] [address] Nov, [facility] [place] [facility] [address] [id number] [place] [address] 24 Nov, 2013 [facility] [place] [facility] [address] [id number] [place] [address] 24 Nov, 2013 [facility] [place] [facility] [address] [id number] [place] [address] 17 Nov, 2013 [facility] [place] [facility] [address] [id number] [place] [address] 17 Nov, 2013 [facility] [place] [facility] [address] [id number] [place] [address] 14 Nov, 2013 [facility] [place] [facility] [address] [id number] [place] [address] 14 Nov, 2013 [facility] [place] [facility] [address] [id number] [place] [address] 10 Nov, 2013 [facility] [place] [facility] [address] [id number] [place] [address] 10 Nov, 2013 [facility] [place] [facility] [address] [id number] [place] [address] 08 Nov, 2013 [facility] [place] [facility] [address] [id number] [place] [address] 08 Nov, 2013 [facility] [place] [facility] [address] [id number] [place] [address] Nov, [facility] [place] [facility] [address] [id number] [place] [address] Nov, [facility] [place] [facility] [address] [id number] [place] [address] 26 Oct, 2013 [facility] [place] [facility] [address] [id number] [place] [address] 26 Oct, 2013 [facility] [place] [facility] [address] [id number] [place] [address] 19 Oct, 2013 [facility] [place] [facility] [address] [id number] [place] [address] Oct, [facility] [place] [facility] [address] [id number] [place] [address] Oct, [facility] [place] [facility] [address] [id number] [place] [address] Oct, [facility] [place] [facility] [address] [id number] [place] [address] Oct, [facility] [place] [facility] [address] [id number] [place] [address] Oct, [facility] [place] [facility] [address] [id number] [place] [address] Oct, [facility] [place] [facility] [address] [id number] [place] [address] Oct, [facility] [place] [facility] [address] [id number] [place] [address] Sep, [facility] [place] [facility] [address] [id number] [place] [address] Sep, [facility] [place] [facility] [address] [id number] [place] [address] Sep, [facility] [place] [facility] [address] [id number] [place] [address] Sep, [facility] [place] [facility] [address] [id number] [place] [address] Sep, [facility] [place] [facility] [address] [id number] [place] [address] Sep, [facility] [place] [facility] [address] [id number] [place] [address] Sep, [facility] [place] [facility] [address] [id number] [place] [address] Sep, [facility] [place] [facility] [address] [id number] [place] [address] Sep, [facility] [place] [facility] [address] [id number] [place] [address] Sep, [facility] [place] [facility] [address] [id number] [place] [address] Sep, [facility] [place] [facility] [address] [id number] [place] [address] Sep, [facility] [place] [facility] [address] [id number] [place] [address] Sep, [facility] [place] [facility] [address] [id number] [place] [address] Sep, [facility] [place] [facility] [address] [id number] [place] [address] Sep, [facility] [place] [facility] [address] [id number] [place] [address] Sep, [facility] [place] [facility] [address] [id number] [place] [address] Sep, [facility] [place] [facility] [address] [id number] [place] [address] Sep, [facility] [place] [facility] [address] [id number] [place] [address] Sep, [facility] [place] [facility] [address] [id number] [place] [address] Sep, [facility] [place] [facility] [address] [id number] [place] [address] Sep, [facility] [place] [facility] [address] [id number] [place] [address] Sep, [facility] [place] [facility] [address] [id number] [place] [address] Sep, [facility] [place] [facility] [address] [id number] [place] [address] Sep, [facility] [place] [facility] [address] [id number] [place] [address] Sep, [facility] [place] [facility] [address] [id number] [place] [address] Aug, [facility] [place] [facility] [address] [id number] [place] [address] Aug, [facility] [place] [facility] [address] [id number] [place] [address] Aug, [facility] [place] [facility] [address] [id number] [place] [address] Aug, [facility] [place] [facility] [address] [id number] [place] [address] Aug, [facility] [place] [facility] [address] [id number] [place] [address] Aug, [facility] [place] [facility] [address] [id number] [place] [address] Aug, [facility] [place] [facility] [address] [id number] [place] [address] Aug, [facility] [place] [facility] [address] [id number] [place] [address] Aug, [facility] [place] [facility] [address] [id number] [place] [address] Aug, [facility] [place] [facility] [address] [id number] [place] [address] Aug, [facility] [place] [facility] [address] [id number] [place] [address] Aug, [facility] [place] [facility] [address] [id number] [place] [address] Aug, [facility] [place] [facility] [address] [id number] [place] [address] Jul, [facility] [place] [facility] [address] [id number] [place] [address] Jul, [facility] [place] [facility] [address] [id number] [place] [address] Jul, [facility] [place] [facility] [address] [id number] [place] [address] Jul, [facility] [place] [facility] [address] [id number] [place] [address] Jul, [facility] [place] [facility] [address] [id number] [place] [address] Jul, [facility] [place] [facility] [address] [id number] [place] [address] Jul, [facility] [place] [facility] [address] [id number] [place] [address] June, [facility] [place] [facility] [address] [id number] [place] [address] June, [facility] [place] [facility] [address] [id number] [place] [address] June, [facility] [place] [facility] [address] [id number] [place] [address] June, [facility] [place] [facility] [address] [id number] [place] [address] May, [facility] [place] [facility] [address] [id number] [place] [address] May, [facility] [place] [facility] [address] [id number] [place] [address] May, [facility] [place] [facility] [address] [id number] [place] [address] May, [facility] [place] [facility] [address] [id number] [place] [address] May, [facility] [place] [facility] [address] [id number] [place] [address] May, [facility] [place] [facility] [address] [id number] [place] [address] May, [facility] [place] [facility] [address] [id number] [place] [address] May, [facility] [place] [facility] [address] [id number] [place] [address] May, [facility] [place] [facility] [address] [id number] [place] [address] May, [facility] [place] [facility] [address] [id number] [place] [address] Apr, [facility] [place] [facility] [address] [id number] [place] [address] Apr, [facility] [place] [facility] [address] [id number] [place] [address] Apr, [facility] [place] [facility] [address] [facility] [id number] [place] [address] Apr, [facility] [place] [facility] [address] [facility] [id number] [place] [address] Apr, [facility] [place] [facility] [address] [id number] [place] [address] Apr, [facility] [place] [facility] [address] [facility] [id number] [place] [address] Apr, [facility] [place] [facility] [address] [facility] [id number] [place] [address] Apr, [facility] [place] [facility] [address] [facility] [id number] [place] [address] Apr, [facility] [place] [facility] [address] [id number] [place] [address] Apr, [facility] [place] [facility] [address] [facility] [id number] [place] [address] Mar, [facility] [place] [facility] [address] [facility] [id number] [place] [address] Mar, [facility] [place] [facility] [address] [facility] [id number] [place] [address] Mar, [facility] [place] [facility] [address] [id number] [place] [address] Mar, [facility] [place] [facility] [address] [id number] [place] [address] Mar, [facility] [place] [facility] [address] [facility] [id number] [place] [address] Mar, [facility] [place] [facility] [address] [id number] [place] [address] Jan, [facility] [place] [facility] [address] [id number] [place] [address] Jan, [facility] [place] [facility] [address] [id number] [place] [address] Jan, [facility] [place] [facility] [address] [id number] [place] [address] Jan, [facility] [place] [facility] [address] [id number] [place] [address] Jan, [facility] [place] [facility] [address] [id number] [place] [address] Jan, [facility] [place] [facility] [address] [id number] [place] [address] Jan, [facility] [place] [facility] [address] [id number] [address] Jan, [facility] [place] [facility] [address] [id number] [place] [address] Jan, [facility] [place] [facility] [address] [id number] [place] [address] Dec, [facility] [place] [facility] [address] [id number] [place] [address] Dec, [facility] [place] [facility] [address] [id number] [place] [address] Dec, [facility] [place] [facility] [address] [id number] [place] [address] Dec, [facility] [address] [id number] [place] [address] Dec, [facility] [place] [facility] [address] [id number] [place] [address] Dec, [facility] [address] [id number] [place] [address] Dec, [facility] [place] [facility] [address] [id number] [place] [address] Dec, [facility] [address] [id number] [place] [address] Dec, [facility] [place] [facility] [address] [id number] [place] [address] Dec, [facility] [address] [id number] [place] [address] Dec, [facility] [address] [id number] [place] [address] Nov, [facility] [place] [facility] [address] [id number] [place] [address] Nov, [facility] [address] [id number] [place] [address] Nov, [facility] [place] [facility] [address] [id number] [place] [address] Nov, [facility] [place] [facility] [address] [id number] [place] [address] Nov, [facility] [place] [facility] [address] [id number] [place] [address] Oct, [facility] [place] [facility] [address] [id number] [place] [address] Oct, [facility] [place] [facility] [address] [id number] [place] [address] Sep, [facility] [place] [facility] [address] [id number] [place] [address] Aug, [facility] [address] [id number] [place] [address] Aug, [facility] [address] [id number] [place] [address] Aug, [facility] [address] [id number] [place] [address] Aug, [facility] [address] [id number] [place] [address] Jul, [facility] [address] [id number] [place] [address] Jul, [facility] [address] [id number] [place] [address] June, [facility] [address] [id number] [place] [address] June, [facility] [address] [id number] [place] [address] June, [facility] [address] [id number] [place] [address] May, [facility] [place] [facility] [address] [id number] [place] [address] May, [facility] [place] [facility] [address] [id number] [place] [address] May, [facility] [place] [facility] [address] [id number] [place] [address] Apr, [facility] [place] [facility] [address] [id number] [place] [address] Apr, [facility] [place] [facility] [address] [id number] [place] [address] Apr, [facility] [place] [facility] [address] [id number] [place] [address] 14 Apr, 2012 [facility] [address] [id number] [place] [address] Apr, [facility] [address] [id number] [place] [address] Apr, [facility] [address] [id number] [place] [address] Apr, [facility] [address] [id number] [place] [address] Apr, [facility] [address] [id number] [place] [address] Apr, [facility] [address] [id number] [place] [address] 20 Apr, 2012 [facility] [address] [id number] [place] [address] Apr, [facility] [address] [id number] [place] [address] 07 Apr, 2012 [facility] [address] [id number] [place] [address] 07 Apr, 2012 [facility] [address] [facility] [id number] [place] [address] Mar, [facility] [address] [id number] [place] [address] Mar, [facility] [address] [id number] [place] [address] 16 Mar, 2012 [facility] [place] [facility] [address] [id number] [place] [address] Mar, [facility] [place] [facility] [address] [id number] [place] [address] Mar, [facility] [address] [id number] [place] [address] Jan, [facility] [place] [facility] [address] [id number] [place] [address] Jan, [facility] [place] [facility] [address] [id number] [place] [address] Jan, [facility] [place] [facility] [address] [id number] [place] [address] Jan, [facility] [place] [facility] [address] [id number] [place] [address] 14 Jan, 2012 [facility] [address] [id number] [place] [address] 13 Jan, 2012 [facility] [place] [facility] [address] [id number] [place] [address] Jan, [facility] [place] [facility] [address] [id number] [place] [address] Jan, [facility] [place] [facility] [address] [id number] [place] [address] Jan, [facility] [place] [facility] [address] [id number] [place] [address] Jan, [facility] [place] [facility] [address] [id number] [place] [address] Jan, [facility] [place] [facility] [address] [id number] [place] [address] Jan, [facility] [place] [facility] [address] [id number] [place] [address] Jan, [facility] [place] [facility] [address] [id number] [place] [address] Jan, [facility] [place] [facility] [address] [id number] [place] [address] Dec, [facility] [place] [facility] [address] [id number] [place] [address] Dec, [facility] [place] [facility] [address] [id number] [address] 19 Jan, 2012 [facility] [place] [facility] [address] [id number] [place] [address] 19 Jan, 2012 [facility] [place] [facility] [address] [id number] [place] [address] 15 Jan, 2012 [facility] [place] [facility] [address] [id number] [place] [address] 15 Jan, 2012 [facility] [place] [facility] [address] [id number] [place] [address] 14 Jan, 2012 [facility] [place] [facility] [address] [id number] [place] [address] 14 Jan, 2012 [facility] [place] [facility] [address] [id number] [place] [address] 14 Jan, 2012 [facility] [place] [facility] [address] [id number] [address] 14 Jan, 2012 [facility] [place] [facility] [address] [id number] [place] [address] 07 Jan, 2012 [facility] [place] [facility] [address] [id number] [place] [address] 07 Jan, 2012 [facility] [place] [facility] [address] [id number] [place] [address] 16 Dec, 2011 [facility] [place] [facility] [address] [id number] [place] [address] 16 Dec, 2011 [facility] [place] [facility] [address] [id number] [place] [address] 13 Nov, 2011 [facility] [place] [facility] [address] [id number] [place] [address] 13 Nov, 2011 [facility] [place] [facility] [address] [id number] [place] [address] 13 Nov, 2011 [facility] [place] [facility] [address] [id number] [place] [address] 12 Nov, 2011 [facility] [place] [facility] [address] [id number] [place] [address] Sep, [facility] [place] [facility] [address] [id number] [place] [address] Sep, [facility] [place] [facility] [address] [id number] [place] [address] Aug, [facility] [place] [facility] [address] [id number] [place] [address] Aug, [facility] [place] [facility] [address] [id number] [place] [address] Aug, [facility] [place] [facility] [address] [id number] [place] [address] Aug, [facility] [place] [facility] [address] [id number] [place] [address] June, [facility] [place] [facility] [address] [id number] [place] [address] June, [facility] [address] [id number] [place] [address] May, [facility] [place] [facility] [address] [id number] [place] [address] Apr, [facility] [place] [facility] [address] [id number] [place] [address] Apr, [facility] [place] [facility] [address] [id number] [place] [address] Apr, [facility] [place] [facility] [address] [id number] [place] [address] Apr, [facility] [place] [facility] [address] [id number] [place] [address] Apr, [facility] [place] [facility] [address] [id number] [place] [address] 16 Apr, 2011 [facility] [place] [facility] [address] [id number] [place] [address] Mar, [facility] [place] [facility] [address] [id number] [place] [address] Mar, [facility] [place] [facility] [address] [id number] [place] [address] Mar, [facility] [place] [facility] [address] [id number] [place] [address] Jan, [facility] [place] [facility] [address] [id number] [place] [address] Jan, [facility] [place] [facility] [address] [id number] [place] [address] Jan, [facility] [place] [facility] [address] [id number] [place] [address] Jan, [facility] [place] [facility] [address] [id number] [place] [address] Jan, [facility] [place] [facility] [address] [id number] [place] [address] Jan, [facility] [place] [facility] [address] [id number] [place] [address] Jan, [facility] [place] [facility] [address] [id number] [place] [address] Dec, [facility] [place] [facility] [address] [id number] [place] [address] Dec, [facility] [place] [facility] [address] [id number] [place] [address] Nov, [facility] [place] [facility] [address] [id number] [place] [address] Nov, [facility] [place] [facility] [address] [id number] [place] [address] Nov, [facility] [place] [facility] [address] [id number] [place] [address] Nov, [facility] [place] [facility] [address] [id number] [place] [address] 12 Oct, 2010 [facility] [place] [facility] [address] [id number] [place] [address] 17 Sep, 2010 [facility] [place] [facility] [address] [id number] [place] [address] Mar, [facility] [address] [id number] [place] [address] Jan, [facility] [place] [facility] [address] [id number] [place] [address] Dec, [facility] [place] [facility] [address] [id number] [place] [address] Dec, [facility] [place] [facility] [address] [id number] [place] [address] Dec, [facility] [place] [facility] [address] [id number] [place] [address] Dec, [facility] [place] [facility] [address] [id number] [place] [address] 26 Nov, 2009 [facility] [place] [facility] [address] [id number] [place] [address] 15 Nov, 2009 [facility] [place] [facility] [address] [id number] [place] [address] 14 Nov, 2009 [facility] [place] [facility] [address] [id number] [place] [address] 14 Nov, 2009 [facility] [place] [facility] [address] [id number] [place] [address] 13 Oct, 2009 [facility] [place] [facility] [address] [id number] [place] [address] Jul, [facility] [place] [facility] [address] [id number] [place] [address] June, [facility] [place] [facility] [address] [id number] [place] [address] 14 Jun, 2009 [facility] [id number] [address] 17 Apr, 2009 [facility] [id number] [address] Mar, [facility] [id number] [address] Jan, [facility] [id number] [place] [address] Jan, [facility] [id number] [address] Dec, [facility] [id number] [place] [address] Dec, [facility] [id number] [place] [address] Dec, [facility] [id number] [place] [address] Dec, [facility] [id number] [address] Nov, [facility] [id number] [address] Jul, [facility] [id number] [address] June, IMMUNIZATIONS No Known Immunizations SOCIAL HISTORY Never Assessed REASON FOR VISIT [facility] PLAN OF CARE VITAL SIGNS MEDICATIONS Unknown [...]
--- OUTSIDE RECORDS SUMMARY | 2018-08-23 17:06 | XMS REPORT ---
Author Author Migration, Doctor Organization [facility] Address Unknown Phone Unavailable Care Team Providers Care Watch Dial Maker Name Role Phone Migration, Doctor Unavailable Unavailable PROBLEMS Type Condition ICD9-CM Code XZC10-RG Code Onset Dates Condition Status SNOMED Code Problem Pulmonary asbestosis J61 Active 24373689 Problem Renal cyst, left N28.1 Active 37950584 Problem Left ventricular diastolic dysfunction I51.9 Active 628494154 Problem Urge incontinence N39.41 Active 703762205 Problem Anxiety F41.9 Active 75333541 Problem Low back pain M54.5 Active 361827069 Problem Age-related osteoporosis without current pathological fracture M81.0 Active 71909707 Problem History of diverticulitis Z87.19 Active 049058426595209 Problem Allergic rhinitis, unspecified allergic rhinitis type J30.9 Active 68389952 Problem Nephrolithiasis N20.0 Active 33653501 Problem Nocturnal hypoxia G47.34 Active 866555630 Problem Psoriasis L40.9 Active 0610504 Problem Essential hypertension I10 Active 25170246 Problem Chronic gout, unspecified cause, unspecified site M1A.9XX0 Active 98805004 Problem Esophageal stricture K22.2 Active 57602362 Problem Obstructive sleep apnea syndrome G47.33 Active 40351122 Problem History of weight loss surgery Z98.84 Active 014849348 Problem 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 Active 93983668 Problem Chronic prescription opiate use Z79.899 Active 808962308 Problem Moderate episode of recurrent major depressive disorder F33.1 Active 286589523 Problem Chronic obstructive pulmonary disease, unspecified COPD type J44.9 Active 13160249 Problem Primary insomnia F51.01 Active 096600661 Problem Neuropathy G62.9 Active 833282623 Problem Cervicalgia M54.2 Active 5513177613549 Problem Hyperlipidemia, unspecified E78.5 Active 27417014 Problem Benign prostatic hyperplasia, presence of lower urinary tract symptoms unspecified, unspecified morphology N40.0 Active 124161631 Problem Acute right-sided low back pain with right-sided sciatica M54.41 Active 040759223 Problem Erectile dysfunction due to diseases classified elsewhere N52.1 Active 008363146 Problem Hammertoe of left foot M20.42 Active 742694995 ALLERGIES No Information ENCOUNTERS Encounter Location Date Diagnosis [place] [id number] [place] [address] Jul, [place] [address] [address] June, [place] [address] [address] May, Morbid obesity E66.01 ; Moderate episode of recurrent major depressive disorder F33.1 and Neuropathy G62.9 [place] [address] [address] May, Onychomycosis B35.1 ; Neuropathy G62.9 and Closed nondisplaced fracture of metatarsal bone of left foot, unspecified metatarsal, initial encounter S92.302A [place] [address] [address] May, [place] [address] [address] Apr, Moderate episode of recurrent major depressive disorder F33.1 ; Morbid obesity E66.01 ; Hyperlipidemia, unspecified E78.5 ; Primary insomnia F51.01 and Low back pain M54.5 [place] [id number] [place] [address] Apr, Primary insomnia F51.01 [place] [address] [address] Apr, Anxiety F41.9 [place] [address] [address] Apr, Low back pain M54.5 [place] [address] [address] Apr, Anxiety F41.9 [facility] [id number] [place] [address] Mar, Moderate episode of recurrent major depressive disorder F33.1 ; BMI 50.0-59.9, adult Z68.43 ; Anxiety F41.9 and Chronic prescription opiate use Z79.899 [facility] [id number] [place] [address] Mar, Onychomycosis B35.1 ; Neuropathy G62.9 and Impaired circulation I99.9 [facility] [id number] [place] [address] Mar, Low back pain M54.5 [place] [address] [address] Mar, Anxiety F41.9 [place] [id number] [place] [address] Jan, BMI 50.0-59.9, adult Z68.43 ; Chronic obstructive pulmonary disease, unspecified COPD type J44.9 ; Low back pain M54.5 and Moderate episode of recurrent major depressive disorder F33.1 [place] [id number] [place] [address] Jan, [facility] [id number] [place] [address] Jan, [facility] [address] [address] Dec, Anxiety F41.9 [facility] [id number] [place] [address] Dec, [facility] [address] [address] Dec, Anxiety F41.9 [facility] [id number] [place] [address] Dec, [facility] [id number] [place] [address] Dec, Encounter for immunization Z23 [facility] [place] [id number] [place] [address] Dec, [place] [id number] [place] [address] Dec, Hammertoe of left foot M20.42 ; Edema of left foot R60.0 and Onychomycosis B35.1 [facility] [place] [id number] [place] [address] Nov, BMI 50.0-59.9, adult Z68.43 [place] [id number] [place] [address] Nov, [place] [id number] [place] [address] Nov, [place] [id number] [place] [address] Nov, Anxiety F41.9 [place] [id number] [place] [address] Oct, [place] [id number] [place] [address] Oct, [place] [id number] [place] [address] Oct, BMI 45.0-49.9, adult Z68.42 ; Essential hypertension I10 ; Hyperlipidemia, unspecified E78.5 ; Anxiety F41.9 ; Obstructive sleep apnea syndrome G47.33 ; Moderate episode of recurrent major depressive disorder F33.1 ; Left ventricular diastolic dysfunction I51.9 ; Acute pain of right shoulder M25.511 ; Pain of left foot M79.672 and Pain in right foot M79.671 [place] [id number] [place] [address] Oct, Anxiety F41.9 [facility] [id number] [address] Sep, Left foot pain M79.672 [facility] [id number] [place] [address] Sep, [facility] [id number] [place] [address] Sep, Anxiety F41.9 [facility] [id number] [place] [address] Sep, [facility] [id number] [place] [address] Aug, [facility] [id number] [place] [address] Aug, [facility] [id number] [place] [address] Aug, Anxiety F41.9 [facility] [id number] [place] [address] Aug, [facility] [id number] [place] [address] Jul, [facility] [id number] [place] [address] Jul, Anxiety F41.9 [facility] [id number] [place] [address] June, Anxiety F41.9 [facility] [id number] [place] [address] June, [facility] [id number] [place] [address] June, Low back pain M54.5 ; Chronic prescription opiate use Z79.899 ; Candidal intertrigo B37.2 ; Urge incontinence N39.41 ; Essential hypertension I10 ; Moderate episode of recurrent major depressive disorder F33.1 ; Age-related osteoporosis without current pathological fracture M81.0 and BMI 45.0-49.9, adult Z68.42 [facility] [id number] [place] [address] June, [facility] [id number] [place] [address] May, Anxiety F41.9 [facility] [id number] [place] [address] May, [facility] [address] [address] May, [facility] [id number] [place] [address] Apr, Anxiety F41.9 [facility] [id number] [place] [address] Apr, [facility] [address] [address] Apr, Low back pain M54.5 [facility] [id number] [place] [address] Apr, [facility] [id number] [place] [address] Apr, [facility] [id number] [place] [address] Apr, Anxiety F41.9 [facility] [id number] [place] [address] Apr, Right groin pain R10.31 [facility] [id number] [place] [address] Mar, [facility] [id number] [place] [address] Mar, [facility] [id number] [place] [address] Mar, Anxiety F41.9 [place] [id number] [place] [address] Mar, Low back pain M54.5 [place] [id number] [place] [address] Mar, Right groin pain R10.31 ; Low back pain M54.5 and BMI 45.0-49.9, adult Z68.42 [place] [address] [address] Mar, [place] [id number] [place] [address] Mar, [place] [id number] [place] [address] Mar, [facility] [id number] [place] [address] Mar, [facility] [id number] [place] [address] Mar, Cough R05 ; Pneumonia of right lower lobe due to infectious organism J18.1 and Abnormal chest x-ray R93.8 [place] [id number] [place] [address] Mar, [place] [id number] [place] [address] Mar, [place] [id number] [place] [address] Jan, Anxiety F41.9 [place] [id number] [place] [address] Jan, [place] [id number] [place] [address] Jan, Moderate episode of recurrent major depressive disorder F33.1 [place] [id number] [place] [address] 20 Dec, 2017 Subacromial bursitis of right shoulder joint M75.51 ; Shortness of breath on exertion R06.02 and BMI 45.0-49.9, adult Z68.42 [facility] [id number] [place] [address] Dec, Anxiety F41.9 [facility] [id number] [place] [address] Dec, [facility] [address] [address] Dec, Low back pain M54.5 [facility] [address] [address] Oct, Low back pain M54.5 [facility] [id number] [place] [address] Sep, [facility] [address] [address] Sep, Erectile dysfunction due to diseases classified elsewhere N52.1 [facility] [id number] [place] [address] Sep, Erectile dysfunction due to diseases classified elsewhere N52.1 [facility] [id number] [place] [address] Sep, [facility] [id number] [place] [address] Sep, Erectile dysfunction due to diseases classified elsewhere N52.1 [facility] [id number] [place] [address] Sep, Low back pain M54.5 and Anxiety F41.9 [facility] [id number] [place] [address] Aug, Acute allergic rhinitis J30.9 [facility] [id number] [place] [address] Aug, [facility] [id number] [place] [address] Aug, Anxiety F41.9 [facility] [address] [address] Jul, Low back pain M54.5 ; Chronic prescription opiate use Z79.899 and Essential hypertension I10 [facility] [id number] [place] [address] Jul, Anxiety F41.9 and Low back pain M54.5 [facility] [id number] [place] [address] June, [facility] [address] [address] June, Anxiety F41.9 [facility] [id number] [place] [address] May, Low back pain M54.5 [facility] [id number] [place] [address] May, [facility] [id number] [place] [address] May, Anxiety F41.9 [facility] [id number] [place] [address] Apr, [facility] [id number] [place] [address] Apr, Low back pain M54.5 [facility] [id number] [place] [address] Apr, Moderate episode of recurrent major depressive disorder F33.1 [facility] [id number] [place] [address] Apr, Anxiety F41.9 [facility] [id number] [place] [address] Apr, Low back pain M54.5 [facility] [id number] [place] [address] 15 Apr, 2016 Elevated alkaline phosphatase level R74.8 [place] [id number] [place] [address] 10 Apr, 2016 Alkaline phosphatase elevation R74.8 [place] [id number] [place] [address] 06 Apr, 2016 Anxiety F41.9 [place] [id number] [place] [address] 03 Apr, 2016 Low back pain M54.5 [place] [id number] [place] [address] 03 Apr, 2016 History of weight loss surgery Z98.84 ; Encounter for hepatitis C screening test for low risk patient Z11.59 ; History of herpes genitalis Z86.19 ; Essential hypertension I10 ; Hyperlipidemia, unspecified E78.5 ; Exposure to STD Z20.2 and Benign prostatic hyperplasia, presence of lower urinary tract symptoms unspecified, unspecified morphology N40.0 [place] [id number] [place] [address] Apr, [facility] [id number] [place] [address] Mar, [place] [id number] [place] [address] Mar, [place] [id number] [place] [address] Mar, [facility] [id number] [place] [address] Mar, Acute right-sided low back pain with right-sided sciatica M54.41 [facility] [id number] [place] [address] Mar, Low back pain M54.5 [facility] [id number] [place] [address] Mar, Muscle strain of chest wall, initial encounter S29.011A ; Muscle strain of right thigh, initial encounter S76.911A and Acute non-recurrent maxillary sinusitis J01.00 [place] [id number] [place] [address] Mar, Benign prostatic hyperplasia, presence of lower urinary tract symptoms unspecified, unspecified morphology N40.0 [place] [id number] [place] [address] Jan, Low back pain M54.5 [place] [id number] [place] [address] Jan, Low back pain M54.5 ; Essential hypertension I10 ; Hyperlipidemia, unspecified E78.5 ; Anxiety F41.9 ; Moderate episode of recurrent major depressive disorder F33.1 ; Primary insomnia F51.01 ; Exposure to STD Z20.2 ; Encounter for hepatitis C screening test for low risk patient Z11.59 and History of herpes genitalis Z86.19 [place] [id number] [place] [address] Dec, [place] [id number] [place] [address] Nov, [place] [id number] [place] [address] Nov, Anxiety F41.9 ; Cervicalgia M54.2 ; Moderate episode of recurrent major depressive disorder F33.1 and Encounter for immunization Z23 [place] [id number] [place] [address] Oct, [place] [address] [address] Oct, [place] [id number] [place] [address] 16 Nov, 2015 [place] [address] [address] Oct, [facility] [address] [address] Sep, [facility] [id number] [place] [address] Aug, Low back pain M54.5 ; Anxiety F41.9 ; Primary insomnia F51.01 and Chronic prescription opiate use Z79.899 [facility] [id number] [place] [address] Jul, [facility] [id number] [place] [address] Jul, [facility] [id number] [place] [address] Jul, [facility] [id number] [place] [address] Jul, [facility] [id number] [place] [address] Jul, [facility] [id number] [place] [address] June, [facility] [id number] [place] [address] June, [facility] [id number] [address] June, [facility] [id number] [place] [address] June, [facility] [id number] [address] May, Preoperative cardiovascular examination Z01.810 [facility] [id number] [address] May, [facility] [id number] [address] Apr, [facility] [address] [address] 31 May, 2015 Osteoarthritis of right knee M17.9 [facility] [id number] [place] [address] 30 May, 2015 [facility] [id number] [place] [address] 16 May, 2015 [facility] [id number] [place] [address] Apr, [facility] [id number] [place] [address] Apr, [facility] [id number] [place] [address] 08 May, 2015 History of excessive cerumen Z78.9 ; Obstructive sleep apnea syndrome G47.33 ; History of diverticulitis Z87.19 and Nephrolithiasis N20.0 [facility] [id number] [place] [address] 29 Apr, 2015 [facility] [id number] [place] [address] 23 Apr, 2015 Abdominal pain R10.9 [facility] [id number] [place] [phone] 10 Apr, 2015 [facility] [id number] [place] [phone] 04 Apr, 2015 Osteoarthritis of right knee M17.9 [facility] [address] [phone] Mar, [facility] [id number] [place] [phone] 15 Mar, 2015 [facility] [id number] [place] [phone] 14 Mar, 2015 [facility] [id number] [place] [phone] Mar, [facility] [id number] [place] [phone] Mar, Pyelonephritis N12 ; Left-sided thoracic back pain M54.6 ; Hematuria, unspecified R31.9 and Kidney stone N20.0 [facility] [id number] [place] [phone] Mar, History of weight loss surgery Z98.84 [facility] [id number] [place] [phone] Mar, History of weight loss surgery Z98.84 and Hyperlipidemia, unspecified E78.5 [facility] [id number] [place] [phone] Mar, Low back pain M54.5 ; Chronic prescription opiate use Z79.899 ; Hyperlipidemia, unspecified E78.5 ; Spasm of back muscles M62.830 and History of weight loss surgery Z98.84 [facility] [id number] [place] [phone] Jan, [facility] [id number] [place] [phone] Jan, [facility] [id number] [place] [phone] Jan, [facility] [id number] [place] [phone] Dec, [facility] [id number] [place] [phone] Dec, [facility] [id number] [place] [phone] Dec, [facility] [address] [id number] [place] [address] Nov, [facility] [id number] [place] [address] Nov, Obstructive sleep apnea syndrome G47.33 and Pharyngoesophageal dysphagia R13.14 [facility] [id number] [place] [address] Nov, [facility] [id number] [place] [address] Nov, [facility] [id number] [place] [address] Nov, [facility] [address] [id number] Oct, 2014 Dental examination V72.2 [facility] [address] [address] Oct, [facility] [id number] [place] [address] Oct, [facility] [id number] [place] [address] Oct, [facility] [id number] [place] [address] Oct, [facility] [id number] [place] [address] Oct, BPH (benign prostatic hyperplasia) 600.00 and Urinary frequency 788.41 [facility] [id number] [place] [address] Oct, [facility] [id number] [place] [address] Oct, [facility] [id number] [place] [address] Oct, [facility] [id number] [place] [address] Sep, Cerumen impaction 380.4 ; Cerumen debris on tympanic membrane 380.4 ; Psoriasis 696.1 and MICKY (secretory otitis media) 381.4 [facility] [address] [id number] [id number] Sep, Dental examination V72.2 [facility] [id number] [place] [address] Sep, Fatigue 780.79 ; Irritable bowel syndrome 564.1 ; Overweight 278.02 ; Poor sleep V69.4 ; Shaking spells 781.0 and Broken tooth 873.63 [facility] [id number] [place] [address] Sep, [facility] [id number] [place] [address] Sep, [facility] [id number] [place] [address] Aug, [facility] [id number] [place] [address] Jul, [facility] [id number] [place] [address] Jul, [facility] [id number] [place] [address] Jul, [facility] [id number] [place] [address] Jul, [facility] [id number] [address] June, Arthritis of knee, right 716.96 [facility] [id number] [address] June, [facility] [id number] [place] [address] June, Elevated blood pressure reading without diagnosis of hypertension 796.2 [facility] [id number] [address] June, [facility] [id number] [place] [address] June, [facility] [place] [facility] [address] [id number] [place] [address] June, [facility] [place] [facility] [address] [id number] [place] [address] June, [facility] [place] [facility] [address] [id number] [place] [address] May, [facility] [place] [facility] [address] [id number] [place] [address] May, [facility] [place] [facility] [address] [id number] [place] [address] Apr, [facility] [place] [facility] [address] [id number] [place] [address] Apr, [facility] [place] [facility] [address] [id number] [place] [address] Apr, [facility] [place] [facility] [address] [id number] [place] [address] Apr, [facility] [place] [facility] [address] [id number] [place] [address] Apr, [facility] [place] [facility] [address] [id number] [place] [address] Apr, [facility] [place] [facility] [address] [id number] [address] Apr, [facility] [place] [facility] [address] [id number] [address] Apr, [facility] [place] [facility] [address] [id number] [place] [address] Apr, [facility] [place] [facility] [address] [id number] [place] [address] Apr, [facility] [place] [facility] [address] [id number] [place] [address] Apr, [facility] [place] [facility] [address] [facility] [id number] [place] [address] 27 Apr, 2014 [facility] [place] [facility] [address] [id number] [place] [address] 24 Apr, 2014 [facility] [place] [facility] [address] [facility] [id number] [place] [address] 24 Apr, 2014 [facility] [place] [facility] [address] [facility] [id number] [place] [address] 23 Apr, 2014 [facility] [place] [facility] [address] [facility] [id number] [place] [address] 23 Apr, 2014 [facility] [place] [facility] [address] [facility] [id number] [place] [address] 20 Apr, 2014 [facility] [place] [facility] [address] [id number] [place] [address] 20 Apr, 2014 [facility] [place] [facility] [address] [id number] [place] [address] 18 Apr, 2014 [facility] [place] [facility] [address] [facility] [id number] [place] [address] 18 Apr, 2014 [facility] [place] [facility] [address] [id number] [place] [address] 13 Apr, 2014 [facility] [place] [facility] [address] [id number] [address] 13 Apr, 2014 [facility] [place] [facility] [address] [facility] [id number] [address] 13 Apr, 2014 [facility] [place] [facility] [address] [facility] [id number] [place] [address] 13 Apr, 2014 [facility] [place] [facility] [address] [facility] [id number] [place] [address] 12 Apr, 2014 [facility] [place] [facility] [address] [facility] [id number] [address] 12 Apr, 2014 [facility] [place] [facility] [address] [id number] [address] Apr, 2014 [facility] [place] [facility] [address] [id number] [place] [address] Apr, 2014 [facility] [place] [facility] [address] [id number] [place] [address] Apr, 2014 [facility] [place] [facility] [address] [id number] [place] [address] Apr, 2014 [facility] [place] [facility] [address] [id number] [place] [address] Apr, 2014 [facility] [place] [facility] [address] [id number] [place] [address] Apr, 2014 [facility] [place] [facility] [address] [facility] [id number] [place] [address] Apr, [facility] [place] [facility] [address] [id number] [place] [address] Mar, [facility] [place] [facility] [address] [id number] [place] [address] Mar, [facility] [place] [facility] [address] [id number] [place] [address] Mar, [facility] [place] [facility] [address] [facility] [id number] [place] [address] Mar, [facility] [place] [facility] [address] [facility] [id number] [place] [address] Mar, [facility] [place] [facility] [address] [id number] [place] [address] Mar, [facility] [place] [facility] [address] [facility] [id number] [place] [address] Mar, [facility] [place] [facility] [address] [facility] [id number] [place] [address] Mar, [facility] [place] [facility] [address] [facility] [id number] [place] [address] Mar, [facility] [place] [facility] [address] [id number] [place] [address] Mar, [facility] [place] [facility] [address] [id number] [place] [address] Jan, [facility] [place] [facility] [address] [id number] [place] [address] Jan, [facility] [place] [facility] [address] [id number] [place] [address] Jan, [facility] [place] [facility] [address] [id number] [place] [address] Jan, [facility] [place] [facility] [address] [id number] [place] [address] Jan, [facility] [place] [facility] [address] [id number] [place] [address] Jan, [facility] [place] [facility] [address] [id number] [place] [address] Jan, [facility] [place] [facility] [address] [id number] [place] [address] Jan, [facility] [place] [facility] [address] [id number] [place] [address] Jan, [facility] [place] [facility] [address] [id number] [place] [address] Jan, [facility] [place] [facility] [address] [id number] [place] [address] Jan, [facility] [place] [facility] [address] [id number] [place] [address] Jan, [facility] [place] [facility] [address] [id number] [place] [address] Dec, [facility] [place] [facility] [address] [id number] [place] [address] Dec, [facility] [place] [facility] [address] [id number] [address] Dec, [facility] [place] [facility] [address] [id number] [place] [address] Dec, [facility] [place] [facility] [address] [id number] [place] [address] Dec, [facility] [place] [facility] [address] [id number] [place] [address] Dec, [facility] [place] [facility] [address] [id number] [place] [address] Dec, [facility] [place] [facility] [address] [id number] [place] [address] Dec, [facility] [place] [facility] [address] [id number] [place] [address] Dec, [facility] [place] [facility] [address] [facility] [id number] [place] [address] Dec, [facility] [place] [facility] [address] [id number] [place] [address] Nov, [facility] [place] [facility] [address] [facility] [id number] [place] [address] Nov, [facility] [place] [facility] [address] [facility] [id number] [place] [address] Nov, [facility] [place] [facility] [address] [id number], [place] [address] Nov, [facility] [place] [facility] [address] [id number], [place] [address] Nov, [facility] [place] [facility] [address] [id number], [place] [address] Nov, [facility] [place] [facility] [address] [facility] [id number], [place] [address] Nov, [facility] [place] [facility] [address] [facility] [id number] [address] Nov, [facility] [place] [facility] [address] [id number] [place] [address] 24 Nov, 2013 [facility] [place] [facility] [address] [id number] [place] [address] 24 Nov, 2013 [facility] [place] [facility] [address] [id number] [place] [address] 17 Nov, 2013 [facility] [place] [facility] [address] [id number] [place] [address] 17 Nov, 2013 [facility] [place] [facility] [address] [id number] [place] [address] 14 Nov, 2013 [facility] [place] [facility] [address] [id number] [place] [address] 14 Nov, 2013 [facility] [place] [facility] [address] [id number] [place] [address] 10 Nov, 2013 [facility] [place] [facility] [address] [id number] [place] [address] 10 Nov, 2013 [facility] [place] [facility] [address] [id number] [place] [address] 08 Nov, 2013 [facility] [place] [facility] [address] [id number] [place] [address] 08 Nov, 2013 [facility] [place] [facility] [address] [id number] [place] [address] Nov, [facility] [place] [facility] [address] [id number] [place] [address] Nov, [facility] [place] [facility] [address] [id number] [place] [address] 26 Oct, 2013 [facility] [place] [facility] [address] [id number] [place] [address] 26 Oct, 2013 [facility] [place] [facility] [address] [id number] [place] [address] 19 Oct, 2013 [facility] [place] [facility] [address] [id number] [place] [address] Oct, [facility] [place] [facility] [address] [id number] [place] [address] Oct, [facility] [place] [facility] [address] [id number] [place] [address] Oct, [facility] [place] [facility] [address] [id number] [place] [address] Oct, [facility] [place] [facility] [address] [id number] [place] [address] Oct, [facility] [place] [facility] [address] [id number] [place] [address] Oct, [facility] [place] [facility] [address] [id number] [place] [address] Oct, [facility] [place] [facility] [address] [id number] [place] [address] Sep, [facility] [place] [facility] [address] [id number] [place] [address] Sep, [facility] [place] [facility] [address] [id number] [place] [address] Sep, [facility] [place] [facility] [address] [id number] [place] [address] Sep, [facility] [place] [facility] [address] [id number] [place] [address] Sep, [facility] [place] [facility] [address] [id number] [place] [address] Sep, [facility] [place] [facility] [address] [id number] [place] [address] Sep, [facility] [place] [facility] [address] [id number] [place] [address] Sep, [facility] [place] [facility] [address] [id number] [place] [address] Sep, [facility] [place] [facility] [address] [id number] [place] [address] Sep, [facility] [place] [facility] [address] [id number] [place] [address] Sep, [facility] [place] [facility] [address] [id number] [place] [address] Sep, [facility] [place] [facility] [address] [id number] [place] [address] Sep, [facility] [place] [facility] [address] [id number] [place] [address] Sep, [facility] [place] [facility] [address] [id number] [place] [address] Sep, [facility] [place] [facility] [address] [id number] [place] [address] Sep, [facility] [place] [facility] [address] [id number] [place] [address] Sep, [facility] [place] [facility] [address] [id number] [place] [address] Sep, [facility] [place] [facility] [address] [id number] [place] [address] Sep, [facility] [place] [facility] [address] [id number] [place] [address] Sep, [facility] [place] [facility] [address] [id number] [place] [address] Sep, [facility] [place] [facility] [address] [id number] [place] [address] Sep, [facility] [place] [facility] [address] [id number] [place] [address] Sep, [facility] [place] [facility] [address] [id number] [place] [address] Sep, [facility] [place] [facility] [address] [id number] [place] [address] Sep, [facility] [place] [facility] [address] [id number] [place] [address] Aug, [facility] [place] [facility] [address] [id number] [place] [address] Aug, [facility] [place] [facility] [address] [id number] [place] [address] Aug, [facility] [place] [facility] [address] [id number] [place] [address] Aug, [facility] [place] [facility] [address] [id number] [place] [address] Aug, [facility] [place] [facility] [address] [id number] [place] [address] Aug, [facility] [place] [facility] [address] [id number] [place] [address] Aug, [facility] [place] [facility] [address] [id number] [place] [address] Aug, [facility] [place] [facility] [address] [id number] [place] [address] Aug, [facility] [place] [facility] [address] [id number] [place] [address] Aug, [facility] [place] [facility] [address] [id number] [place] [address] Aug, [facility] [place] [facility] [address] [id number] [place] [address] Aug, [facility] [place] [facility] [address] [id number] [place] [address] Aug, [facility] [place] [facility] [address] [id number] [place] [address] Jul, [facility] [place] [facility] [address] [id number] [place] [address] Jul, [facility] [place] [facility] [address] [id number] [place] [address] Jul, [facility] [place] [facility] [address] [id number] [place] [address] Jul, [facility] [place] [facility] [address] [id number] [place] [address] Jul, [facility] [place] [facility] [address] [id number] [place] [address] Jul, [facility] [place] [facility] [address] [id number] [place] [address] Jul, [facility] [place] [facility] [address] [id number] [place] [address] June, [facility] [place] [facility] [address] [id number] [place] [address] June, [facility] [place] [facility] [address] [id number] [place] [address] June, [facility] [place] [facility] [address] [id number] [place] [address] June, [facility] [place] [facility] [address] [id number] [place] [address] May, [facility] [place] [facility] [address] [id number] [place] [address] May, [facility] [place] [facility] [address] [id number] [place] [address] May, [facility] [place] [facility] [address] [id number] [place] [address] May, [facility] [place] [facility] [address] [id number] [place] [address] May, [facility] [place] [facility] [address] [id number] [place] [address] May, [facility] [place] [facility] [address] [id number] [place] [address] May, [facility] [place] [facility] [address] [id number] [place] [address] May, [facility] [place] [facility] [address] [id number] [place] [address] May, [facility] [place] [facility] [address] [id number] [place] [address] May, [facility] [place] [facility] [address] [id number] [place] [address] Apr, [facility] [place] [facility] [address] [id number] [place] [address] Apr, [facility] [place] [facility] [address] [id number] [place] [address] Apr, [facility] [place] [facility] [address] [facility] [id number] [place] [address] Apr, [facility] [place] [facility] [address] [facility] [id number] [place] [address] Apr, [facility] [place] [facility] [address] [id number] [place] [address] Apr, [facility] [place] [facility] [address] [facility] [id number] [place] [address] Apr, [facility] [place] [facility] [address] [facility] [id number] [place] [address] Apr, [facility] [place] [facility] [address] [facility] [id number] [place] [address] Apr, [facility] [place] [facility] [address] [id number] [place] [address] Apr, [facility] [place] [facility] [address] [facility] [id number] [place] [address] Mar, [facility] [place] [facility] [address] [facility] [id number] [place] [address] Mar, [facility] [place] [facility] [address] [facility] [id number] [place] [address] Mar, [facility] [place] [facility] [address] [id number] [place] [address] Mar, [facility] [place] [facility] [address] [id number] [place] [address] Mar, [facility] [place] [facility] [address] [facility] [id number] [place] [address] Mar, [facility] [place] [facility] [address] [id number] [place] [address] Jan, [facility] [place] [facility] [address] [id number] [place] [address] Jan, [facility] [place] [facility] [address] [id number] [place] [address] Jan, [facility] [place] [facility] [address] [id number] [place] [address] Jan, [facility] [place] [facility] [address] [id number] [place] [address] Jan, [facility] [place] [facility] [address] [id number] [place] [address] Jan, [facility] [place] [facility] [address] [id number] [place] [address] Jan, [facility] [place] [facility] [address] [id number] [address] Jan, [facility] [place] [facility] [address] [id number], [place] [address] Jan, [facility] [place] [facility] [address] [id number] [place] [address] Dec, [facility] [place] [facility] [address] [id number] [place] [address] Dec, [facility] [place] [facility] [address] [id number] [place] [address] Dec, [facility] [place] [facility] [address] [id number] [place] [address] Dec, [facility] [address] [id number] [place] [address] Dec, [facility] [place] [facility] [address] [id number] [place] [address] Dec, [facility] [address] [id number] [place] [address] Dec, [facility] [place] [facility] [address] [id number] [place] [address] Dec, [facility] [address] [id number] [place] [address] Dec, [facility] [place] [facility] [address] [id number] [place] [address] Dec, [facility] [address] [id number] [place] [address] Dec, [facility] [address] [id number] [place] [address] Nov, [facility] [place] [facility] [address] [id number] [place] [address] Nov, [facility] [address] [id number] [place] [address] Nov, [facility] [place] [facility] [address] [id number] [place] [address] Nov, [facility] [place] [facility] [address] [id number] [place] [address] Nov, [facility] [place] [facility] [address] [id number] [place] [address] Oct, [facility] [place] [facility] [address] [id number] [place] [address] Oct, [facility] [place] [facility] [address] [id number] [place] [address] Sep, [facility] [place] [facility] [address] [id number] [place] [address] Aug, [facility] [address] [id number] [place] [address] Aug, [facility] [address] [id number] [place] [address] Aug, [facility] [address] [id number] [place] [address] Aug, [facility] [address] [id number] [place] [address] Jul, [facility] [address] [id number] [place] [address] Jul, [facility] [address] [id number] [place] [address] June, [facility] [address] [id number] [place] [address] June, [facility] [address] [id number] [place] [address] June, [facility] [address] [id number] [place] [address] May, [facility] [place] [facility] [address] [id number] [place] [address] May, [facility] [place] [facility] [address] [id number] [place] [address] May, [facility] [place] [facility] [address] [id number] [place] [address] Apr, [facility] [place] [facility] [address] [id number] [place] [address] Apr, [facility] [place] [facility] [address] [id number] [place] [address] Apr, [facility] [place] [facility] [address] [id number] [place] [address] 14 Apr, 2012 [facility] [address] [id number] [place] [address] Apr, [facility] [address] [id number] [place] [address] Apr, [facility] [address] [id number] [place] [address] Apr, [facility] [address] [id number] [place] [address] Apr, [facility] [address] [id number] [place] [address] Apr, [facility] [address] [id number] [place] [address] 20 Apr, 2012 [facility] [address] [id number] [place] [address] Apr, [facility] [address] [id number] [place] [address] 07 Apr, 2012 [facility] [address] [id number] [place] [address] 07 Apr, 2012 [facility] [address] [facility] [id number] [place] [address] Mar, [facility] [address] [id number] [place] [address] Mar, [facility] [address] [id number] [place] [address] 16 Mar, 2012 [facility] [place] [facility] [address] [id number] [place] [address] Mar, [facility] [place] [facility] [address] [id number] [place] [address] Mar, [facility] [address] [id number] [place] [address] Jan, [facility] [place] [facility] [address] [id number] [place] [address] Jan, [facility] [place] [facility] [address] [id number] [place] [address] Jan, [facility] [place] [facility] [address] [id number] [place] [address] Jan, [facility] [place] [facility] [address] [id number] [place] [address] 14 Jan, 2012 [facility] [address] [id number] [place] [address] 13 Jan, 2012 [facility] [place] [facility] [address] [id number] [place] [address] Jan, [facility] [place] [facility] [address] [id number] [place] [address] Jan, [facility] [place] [facility] [address] [id number] [place] [address] Jan, [facility] [place] [facility] [address] [id number] [place] [address] Jan, [facility] [place] [facility] [address] [id number] [place] [address] Jan, [facility] [place] [facility] [address] [id number] [place] [address] Jan, [facility] [place] [facility] [address] [id number] [place] [address] Jan, [facility] [place] [facility] [address] [id number] [place] [address] Jan, [facility] [place] [facility] [address] [id number] [place] [address] Dec, [facility] [place] [facility] [address] [id number] [place] [address] Dec, [facility] [place] [facility] [address] [id number] [address] 19 Jan, 2012 [facility] [place] [facility] [address] [id number] [place] [address] 19 Jan, 2012 [facility] [place] [facility] [address] [id number], [place] [address] 15 Jan, 2012 [facility] [place] [facility] [address] [id number] [place] [address] 15 Jan, 2012 [facility] [place] [facility] [address] [id number] [place] [address] 14 Jan, 2012 [facility] [place] [facility] [address] [id number] [place] [address] 14 Jan, 2012 [facility] [place] [facility] [address] [id number] [place] [address] 14 Jan, 2012 [facility] [place] [facility] [address] [id number] [address] 14 Jan, 2012 [facility] [place] [facility] [address] [id number] [place] [address] 07 Jan, 2012 [facility] [place] [facility] [address] [id number] [address] 07 Jan, 2012 [facility] [place] [facility] [address] [id number], [place] [address] 16 Dec, 2011 [facility] [place] [facility] [address] [id number], [place] [address] 16 Dec, 2011 [facility] [place] [facility] [address] [id number], [place] [address] 13 Nov, 2011 [facility] [place] [facility] [address] [id number][place] [address] 13 Nov, 2011 [facility] [place] [facility] [address] [id number], [place] [address] 13 Nov, 2011 [facility] [place] [facility] [address] [id number], [place] [address] 12 Nov, 2011 [facility] [place] [facility] [address] [id number] [place] [address] Sep, [facility] [place] [facility] [address] [id number] [place] [address] Sep, [facility] [place] [facility] [address] [id number] [place] [address] Aug, [facility] [place] [facility] [address] [id number] [place] [address] Aug, [facility] [place] [facility] [address] [id number] [place] [address] Aug, [facility] [place] [facility] [address] [id number] [place] [address] Aug, [facility] [place] [facility] [address] [id number] [place] [address] June, [facility] [place] [facility] [address] [id number] [place] [address] June, [facility] [address] [id number] [place] [address] May, [facility] [place] [facility] [address] [id number] [place] [address] Apr, [facility] [place] [facility] [address] [id number] [place] [address] Apr, [facility] [place] [facility] [address] [id number] [place] [address] Apr, [facility] [place] [facility] [address] [id number] [place] [address] Apr, [facility] [place] [facility] [address] [id number] [place] [address] Apr, [facility] [place] [facility] [address] [id number] [place] [address] 16 Apr, 2011 [facility] [place] [facility] [address] [id number] [place] [address] Mar, [facility] [place] [facility] [address] [id number] [place] [address] Mar, [facility] [place] [facility] [address] [id number] [place] [address] Mar, [facility] [place] [facility] [address] [id number] [place] [address] Jan, [facility] [place] [facility] [address] [id number] [place] [address] Jan, [facility] [place] [facility] [address] [id number] [place] [address] Jan, [facility] [place] [facility] [address] [id number] [place] [address] Jan, [facility] [place] [facility] [address] [id number] [place] [address] Jan, [facility] [place] [facility] [address] [id number] [place] [address] Jan, [facility] [place] [facility] [address] [id number] [place] [address] Jan, [facility] [place] [facility] [address] [id number] [place] [address] Dec, [facility] [place] [facility] [address] [id number], [place] [address] Dec, [facility] [place] [facility] [address] [id number], [place] [address] Nov, [facility] [place] [facility] [address] [id number] [place] [address] Nov, [facility] [place] [facility] [address] [id number], [place] [address] Nov, [facility] [place] [facility] [address] [id number], [place] [address] Nov, [facility] [place] [facility] [address] [id number] [place] [address] 12 Oct, 2010 [facility] [place] [facility] [address] [id number] [place] [address] 17 Sep, 2010 [facility] [place] [facility] [address] [id number] [place] [address] Mar, [facility] [address] [id number] [place] [address] Jan, [facility] [place] [facility] [address] [id number] [place] [address] Dec, [facility] [place] [facility] [address] [id number] [place] [address] Dec, [facility] [place] [facility] [address] [id number] [place] [address] Dec, [facility] [place] [facility] [address] [id number] [place] [address] Dec, [facility] [place] [facility] [address] [id number] [place] [address] 26 Nov, 2009 [facility] [place] [facility] [address] [id number] [place] [address] 15 Nov, 2009 [facility] [place] [facility] [address] [id number] [place] [address] 14 Nov, 2009 [facility] [place] [facility] [address] [id number] [place] [address] 14 Nov, 2009 [facility] [place] [facility] [address] [id number] [place] [address] 13 Oct, 2009 [facility] [place] [facility] [address] [id number] [place] [address] Jul, [facility] [place] [facility] [address] [id number] [place] [address] June, [facility] [place] [facility] [address] [id number] [place] [address] 14 Jun, 2009 [facility] [id number] [address] 17 Apr, 2009 [facility] [id number], [place] [address] Mar, [facility] [id number], [place] [address] Jan, [facility] [id number] [place] [address] Jan, [facility] [id number], [place] [address] Dec, [facility] [id number] [place] [address] Dec, [facility] [id number], [place] [address] Dec, [facility] [id number] [place] [address] Dec, [facility] [id number], [place] [address] Nov, [facility] [id number], [place] [address] Jul, [facility] [address] [id number] [address] June, IMMUNIZATIONS No Known Immunizations SOCIAL HISTORY Never Assessed REASON FOR VISIT [facility] PLAN OF CARE VITAL SIGNS MEDICATIONS Unknown Medications RESULTS No Results PROCEDURES No Known procedures INSTRUCTIONS MEDICATIONS ADMINISTERED No Known Medications MEDICAL (GENERAL) HISTORY Type Description Date Medical History hypertension Medical History sleep apnea-did not tolerate CPAP Medical History oxygen dependent at [facility] Medical History colonic polyps Medical [...]
--- OUTSIDE RECORDS SUMMARY | 2018-08-23 17:07 | XMS REPORT ---
Author Author Migration, Doctor Organization [facility] Address Unknown Phone Unavailable Care Team Providers Care Kettle Worker Name Role Phone Migration, Doctor Unavailable Unavailable PROBLEMS Type Condition ICD9-CM Code UVT03-NX Code Onset Dates Condition Status SNOMED Code Problem Pulmonary asbestosis J61 Active 45706329 Problem Renal cyst, left N28.1 Active 34578138 Problem Left ventricular diastolic dysfunction I51.9 Active 620856565 Problem Urge incontinence N39.41 Active 779549936 Problem Anxiety F41.9 Active 09486671 Problem Low back pain M54.5 Active 992145950 Problem Age-related osteoporosis without current pathological fracture M81.0 Active 91971319 Problem History of diverticulitis Z87.19 Active [id number] Problem Allergic rhinitis, unspecified allergic rhinitis type J30.9 Active 32860341 Problem Nephrolithiasis N20.0 Active 40838239 Problem Nocturnal hypoxia G47.34 Active 374234087 Problem Psoriasis L40.9 Active 9176248 Problem Essential hypertension I10 Active 75279184 Problem Chronic gout, unspecified cause, unspecified site M1A.9XX0 Active 92282422 Problem Esophageal stricture K22.2 Active 86056177 Problem Obstructive sleep apnea syndrome G47.33 Active 02208612 Problem History of weight loss surgery Z98.84 Active 640950599 Problem 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 Active 36462128 Problem Chronic prescription opiate use Z79.899 Active 536989410 Problem Moderate episode of recurrent major depressive disorder F33.1 Active 878974828 Problem Chronic obstructive pulmonary disease, unspecified COPD type J44.9 Active 06932000 Problem Primary insomnia F51.01 Active 824853009 Problem Neuropathy G62.9 Active 546447060 Problem Cervicalgia M54.2 Active 0392906659011 Problem Hyperlipidemia, unspecified E78.5 Active 72559841 Problem Benign prostatic hyperplasia, presence of lower urinary tract symptoms unspecified, unspecified morphology N40.0 Active 828217379 Problem Acute right-sided low back pain with right-sided sciatica M54.41 Active 319072905 Problem Erectile dysfunction due to diseases classified elsewhere N52.1 Active 253225014 Problem Hammertoe of left foot M20.42 Active 344962519 ALLERGIES No Information ENCOUNTERS Encounter Location Date Diagnosis [place] [id number] [place] [address] May, [place] [id number] [place] [address] May, [place] [address] [address] May, [place] [address] [address] Apr, Moderate episode of recurrent major depressive disorder F33.1 ; Morbid obesity E66.01 ; Hyperlipidemia, unspecified E78.5 ; Primary insomnia F51.01 and Low back pain M54.5 [place] [address] [address] Apr, Primary insomnia F51.01 [place] [address] [address] Apr, Anxiety F41.9 [place] [id number] [place] [address] 15 Apr, 2018 Low back pain M54.5 [place] [id number] [place] [address] Apr, Anxiety F41.9 [place] [id number] [place] [address] Mar, Moderate episode of recurrent major depressive disorder F33.1 ; BMI 50.0-59.9, adult Z68.43 ; Anxiety F41.9 and Chronic prescription opiate use Z79.899 [place] [id number] [place] [address] Mar, Onychomycosis B35.1 ; Neuropathy G62.9 and Impaired circulation I99.9 [place] [id number] [place] [address] Mar, Low back pain M54.5 [facility] [address] [address] Mar, Anxiety F41.9 [facility] [id number] [place] [address] Jan, BMI 50.0-59.9, adult Z68.43 ; Chronic obstructive pulmonary disease, unspecified COPD type J44.9 ; Low back pain M54.5 and Moderate episode of recurrent major depressive disorder F33.1 [facility] [address] [address] Jan, [facility] [address] [address] Jan, [facility] [address] [address] Dec, Anxiety F41.9 [facility] [id number] [place] [address] Dec, [facility] [address] [address] Dec, Anxiety F41.9 [facility] [id number] [place] [address] Dec, [facility] [id number] [place] [address] Dec, Encounter for immunization Z23 [facility] [id number] [place] [address] Dec, [facility] [address] [address] Dec, Hammertoe of left foot M20.42 ; Edema of left foot R60.0 and Onychomycosis B35.1 [facility] [address] [place] [address] Nov, BMI 50.0-59.9, adult Z68.43 [facility] [address] [address] Nov, [facility] [id number] [place] [address] Nov, [facility] [address] [address] Nov, Anxiety F41.9 [facility] [address] [address] Oct, [facility] [address] [address] Oct, [facility] [address] [address] Oct, BMI 45.0-49.9, adult Z68.42 ; Essential hypertension I10 ; Hyperlipidemia, unspecified E78.5 ; Anxiety F41.9 ; Obstructive sleep apnea syndrome G47.33 ; Moderate episode of recurrent major depressive disorder F33.1 ; Left ventricular diastolic dysfunction I51.9 ; Acute pain of right shoulder M25.511 ; Pain of left foot M79.672 and Pain in right foot M79.671 [facility] [id number] [place] [address] Oct, Anxiety F41.9 [facility] [id number] [place] [address] Sep, Left foot pain M79.672 [facility] [id number] [place] [address] Sep, [facility] [id number] [place] [address] Sep, Anxiety F41.9 [facility] [id number] [place] [address] Sep, [facility] [address] [address] Aug, [facility] [id number] [place] [address] Aug, [facility] [id number] [place] [address] Aug, Anxiety F41.9 [facility] [id number] [place] [address] Aug, [facility] [id number] [place] [address] Jul, [facility] [id number] [place] [address] Jul, Anxiety F41.9 [facility] [id number] [place] [address] June, Anxiety F41.9 [facility] [id number] [place] [address] June, [facility] [id number] [place] [address] June, Low back pain M54.5 ; Chronic prescription opiate use Z79.899 ; Candidal intertrigo B37.2 ; Urge incontinence N39.41 ; Essential hypertension I10 ; Moderate episode of recurrent major depressive disorder F33.1 ; Age-related osteoporosis without current pathological fracture M81.0 and BMI 45.0-49.9, adult Z68.42 [facility] [address] [address] June, [facility] [id number] [place] [address] May, Anxiety F41.9 [facility] [id number] [place] [address] May, [facility] [id number] [place] [address] May, [facility] [id number] [place] [address] Apr, Anxiety F41.9 [facility] [id number] [place] [address] Apr, [facility] [address] [address] Apr, Low back pain M54.5 [facility] [address] [address] Apr, [facility] [address] [address] Apr, [facility] [id number] [place] [address] Apr, Anxiety F41.9 [facility] [id number] [place] [address] Apr, Right groin pain R10.31 [facility] [id number] [place] [address] Mar, [facility] [id number] [place] [address] Mar, [facility] [id number] [place] [address] Mar, Anxiety F41.9 [facility] [id number] [place] [address] Mar, Low back pain M54.5 [facility] [address] [address] Mar, Right groin pain R10.31 ; Low back pain M54.5 and BMI 45.0-49.9, adult Z68.42 [facility] [address] [address] Mar, [facility] [id number] [place] [address] Mar, [facility] [id number] [place] [address] Mar, [facility] [id number] [place] [address] Mar, [facility] [id number] [place] [address] Mar, Cough R05 ; Pneumonia of right lower lobe due to infectious organism J18.1 and Abnormal chest x-ray R93.8 [place] [id number] [place] [address] Mar, [place] [id number] [place] [address] Mar, [place] [id number] [place] [address] Jan, Anxiety F41.9 [place] [id number] [place] [address] Jan, [place] [id number] [place] [address] Jan, Moderate episode of recurrent major depressive disorder F33.1 [place] [id number] [place] [address] Jan, Subacromial bursitis of right shoulder joint M75.51 ; Shortness of breath on exertion R06.02 and BMI 45.0-49.9, adult Z68.42 [place] [id number] [place] [address] Dec, Anxiety F41.9 [place] [id number] [place] [address] Dec, [facility] [id number] [place] [address] Dec, Low back pain M54.5 [facility] [id number] [place] [address] Oct, Low back pain M54.5 [facility] [id number] [place] [address] Sep, [facility] [id number] [place] [address] Sep, Erectile dysfunction due to diseases classified elsewhere N52.1 [facility] [id number] [place] [address] Sep, Erectile dysfunction due to diseases classified elsewhere N52.1 [facility] [id number] [place] [address] Sep, [facility] [id number] [place] [address] Sep, Erectile dysfunction due to diseases classified elsewhere N52.1 [facility] [id number] [place] [address] Sep, Low back pain M54.5 and Anxiety F41.9 [facility] [id number] [place] [address] Aug, Acute allergic rhinitis J30.9 [facility] [id number] [place] [address] Aug, [facility] [id number] [place] [address] Aug, Anxiety F41.9 [facility] [id number] [place] [address] 15 Jul, 2016 Low back pain M54.5 ; Chronic prescription opiate use Z79.899 and Essential hypertension I10 [facility] [address] [place] [address] Jul, Anxiety F41.9 and Low back pain M54.5 [facility] [address] [address] June, [facility] [id number] [place] [address] June, Anxiety F41.9 [facility] [id number] [place] [address] May, Low back pain M54.5 [facility] [id number] [place] [address] May, [facility] [id number] [place] [address] May, Anxiety F41.9 [facility] [id number] [place] [address] Apr, [facility] [id number] [place] [address] Apr, Low back pain M54.5 [facility] [address] [place] [address] Apr, Moderate episode of recurrent major depressive disorder F33.1 [facility] [id number] [place] [address] Apr, Anxiety F41.9 [facility] [address] [place] [address] Apr, Low back pain M54.5 [facility] [address] [place] [address] 15 Apr, 2016 Elevated alkaline phosphatase level R74.8 [facility] [id number] [place] [address] 10 Apr, 2016 Alkaline phosphatase elevation R74.8 [facility] [address] [place] [address] 06 Apr, 2016 Anxiety F41.9 [facility] [id number] [place] [address] 03 Apr, 2016 Low back pain M54.5 [facility] [id number] [place] [address] 03 Apr, 2016 History of weight loss surgery Z98.84 ; Encounter for hepatitis C screening test for low risk patient Z11.59 ; History of herpes genitalis Z86.19 ; Essential hypertension I10 ; Hyperlipidemia, unspecified E78.5 ; Exposure to STD Z20.2 and Benign prostatic hyperplasia, presence of lower urinary tract symptoms unspecified, unspecified morphology N40.0 [facility] [id number] [place] [address] 02 Apr, 2016 [place] [id number] [place] [address] Mar, [place] [id number] [place] [address] Mar, [place] [id number] [place] [address] Mar, [facility] [id number] [place] [address] Mar, Acute right-sided low back pain with right-sided sciatica M54.41 [facility] [id number] [place] [address] Mar, Low back pain M54.5 [facility] [id number] [place] [address] Mar, Muscle strain of chest wall, initial encounter S29.011A ; Muscle strain of right thigh, initial encounter S76.911A and Acute non-recurrent maxillary sinusitis J01.00 [place] [id number] [place] [address] Mar, Benign prostatic hyperplasia, presence of lower urinary tract symptoms unspecified, unspecified morphology N40.0 [place] [id number] [place] [address] Jan, Low back pain M54.5 [facility] [id number] [place] [address] Jan, Low back pain M54.5 ; Essential hypertension I10 ; Hyperlipidemia, unspecified E78.5 ; Anxiety F41.9 ; Moderate episode of recurrent major depressive disorder F33.1 ; Primary insomnia F51.01 ; Exposure to STD Z20.2 ; Encounter for hepatitis C screening test for low risk patient Z11.59 and History of herpes genitalis Z86.19 [facility] [address] [address] 17 Jan, 2016 [facility] [address] [address] 20 Dec, 2015 [place] [address] [address] 14 Dec, 2015 Anxiety F41.9 ; Cervicalgia M54.2 ; Moderate episode of recurrent major depressive disorder F33.1 and Encounter for immunization Z23 [place] [id number] [place] [address] Oct, [place] [address] [address] 22 Nov, 2015 [place] [id number] [place] [address] 16 Nov, 2015 [facility] [id number] [place] [address] Oct, [facility] [id number] [place] [address] Sep, [facility] [address] [address] Aug, Low back pain M54.5 ; Anxiety F41.9 ; Primary insomnia F51.01 and Chronic prescription opiate use Z79.899 [facility] [address] [address] Jul, [facility] [address] [facility] [id number] [place] [address] Jul, [facility] [address] [id number] [place] [address] Jul, [facility] [address] [facility] [id number] [place] [address] Jul, [facility] [address] [facility] [id number] [place] [address] Jul, [facility] [address] [id number] [place] [address] June, [facility] [address] [facility] [id number] [place] [address] June, [facility] [address] [facility] [id number] [place] [address] June, [facility] [address] [facility] [id number] [address] June, [facility] [id number] [address] May, Preoperative cardiovascular examination Z01.810 [facility] [id number] [address] May, [facility] [address] [address] Apr, [facility] [address] [facility] [id number] [place] [address] Apr, Osteoarthritis of right knee M17.9 [facility] [id number] [place] [address] 30 May, 2015 [facility] [address] [facility] [id number] [place] [address] 16 May, 2015 [facility] [id number] [address] Apr, [facility] [id number] [place] [address] Apr, [facility] [id number] [place] [address] Apr, History of excessive cerumen Z78.9 ; Obstructive sleep apnea syndrome G47.33 ; History of diverticulitis Z87.19 and Nephrolithiasis N20.0 [facility] [id number] [place] [address] 29 Apr, 2015 [facility] [id number] [place] [address] Apr, Abdominal pain R10.9 [place] [id number] [place] [address] 10 Apr, 2015 [place] [address] [address] 04 Apr, 2015 Osteoarthritis of right knee M17.9 [place] [id number] [place] [address] Mar, [place] [id number] [place] [address] 15 Mar, 2015 [place] [id number] [place] [address] Mar, [place] [id number] [place] [address] Mar, [facility] [id number] [place] [address] 13 Mar, 2015 Pyelonephritis N12 ; Left-sided thoracic back pain M54.6 ; Hematuria, unspecified R31.9 and Kidney stone N20.0 [place] [id number] [place] [address] 12 Mar, 2015 History of weight loss surgery Z98.84 [place] [address] [place] [address] 07 Mar, 2016 History of weight loss surgery Z98.84 and Hyperlipidemia, unspecified E78.5 [facility] [id number] [place] [phone] Mar, 2016 Low back pain M54.5 ; Chronic prescription opiate use Z79.899 ; Hyperlipidemia, unspecified E78.5 ; Spasm of back muscles M62.830 and History of weight loss surgery Z98.84 [facility] [id number] [place] [phone] Jan, [facility] [id number] [place] [phone] Jan, [facility] [id number] [place] [id number] Jan, [facility] [id number] [place] [phone] Dec, [facility] [id number] [place] [phone] Dec, [facility] [id number] [place] [phone] Dec, [facility] [id number] [place] [phone] Nov, [facility] [id number] [place] [phone] Nov, Obstructive sleep apnea syndrome G47.33 and Pharyngoesophageal dysphagia R13.14 [facility] [id number] [address] Nov, [facility] [id number] [place] [phone] Nov, [facility] [id number] [address] Nov, [facility] [id number] [place] [id number] Oct, 2014 Dental examination V72.2 [facility] [id number] [place] [phone] Oct, [facility] [id number] [place] [id number] Oct, [facility] [id number] [place] [phone] Oct, [facility] [facility] [address] [address] Oct, [facility] [address] [address] Oct, BPH (benign prostatic hyperplasia) 600.00 and Urinary frequency 788.41 [facility] [id number] [place] [address] Oct, [facility] [id number] [place] [address] Oct, [facility] [id number] [place] [address] Oct, [facility] [id number] [place] [address] Sep, Cerumen impaction 380.4 ; Cerumen debris on tympanic membrane 380.4 ; Psoriasis 696.1 and MICKY (secretory otitis media) 381.4 [facility] [id number] [place] [id number] Sep, Dental examination V72.2 [facility] [id number] [place] [address] Sep, Fatigue 780.79 ; Irritable bowel syndrome 564.1 ; Overweight 278.02 ; Poor sleep V69.4 ; Shaking spells 781.0 and Broken tooth 873.63 [facility] [id number] [place] [address] Sep, [facility] [address] [id number] [place] [address] Sep, [facility] [address] [id number] [place] [address] Aug, [facility] [address] [facility] [id number] [place] [address] Jul, [facility] [address] [facility] [id number] [place] [address] Jul, [facility] [address] [facility] [id number] [place] [address] Jul, [facility] [id number] [place] [address] Jul, [facility] [id number] [address] June, Arthritis of knee, right 716.96 [facility] [id number] [address] June, [facility] [id number] [address] June, Elevated blood pressure reading without diagnosis of hypertension 796.2 [facility] [id number] [place] [address] June, [facility] [id number] [address] June, [facility] [address] [id number] [place] [address] June, [facility] [id number] [address] June, [facility] [address] [id number] [place] [address] May, [facility] [id number] [place] [address] 13 May, 2014 [facility] [place] [facility] [address] [id number] [place] [address] 30 Apr, 2014 [facility] [place] [facility] [address] [id number] [place] [address] 30 Apr, 2014 [facility] [place] [facility] [address] [id number] [place] [address] Apr, [facility] [place] [facility] [address] [id number] [place] [address] Apr, [facility] [place] [facility] [address] [id number] [place] [address] Apr, [facility] [place] [facility] [address] [id number] [place] [address] Apr, [facility] [place] [facility] [address] [id number] [place] [address] Apr, [facility] [place] [facility] [address] [id number] [place] [address] Apr, [facility] [place] [facility] [address] [id number] [place] [address] Apr, [facility] [place] [facility] [address] [id number] [place] [address] Apr, [facility] [place] [facility] [address] [id number] [place] [address] Apr, [facility] [place] [facility] [address] [id number] [place] [address] Apr, [facility] [place] [facility] [address] [id number] [place] [address] Apr, [facility] [place] [facility] [address] [id number] [place] [address] Apr, [facility] [place] [facility] [address] [id number] [place] [address] Apr, [facility] [place] [facility] [address] [id number] [place] [address] 23 Apr, 2014 [facility] [place] [facility] [address] [id number] [place] [address] Apr, 2014 [facility] [place] [facility] [address] [id number] [place] [address] 20 Apr, 2014 [facility] [place] [facility] [address] [facility] [id number] [place] [address] 18 Apr, 2014 [facility] [place] [facility] [address] [id number] [place] [address] 18 Apr, 2014 [facility] [place] [facility] [address] [facility] [id number] [place] [address] 13 Apr, 2014 [facility] [place] [facility] [address] [facility] [id number] [place] [address] 13 Apr, 2014 [facility] [place] [facility] [address] [facility] [id number] [place] [address] 13 Apr, 2014 [facility] [place] [facility] [address] [facility] [id number] [place] [address] 13 Apr, 2014 [facility] [place] [facility] [address] [facility] [id number] [place] [address] 12 Apr, 2014 [facility] [place] [facility] [address] [facility] [id number] [place] [address] Apr, 2014 [facility] [place] [facility] [address] [facility] [id number] [address] Apr, 2014 [facility] [place] [facility] [address] [facility] [id number] [place] [address] Apr, 2014 [facility] [place] [facility] [address] [facility] [id number] [place] [address] Apr, 2014 [facility] [place] [facility] [address] [facility] [id number] [place] [address] Apr, 2014 [facility] [place] [facility] [address] [facility] [id number] [place] [address] Apr, [facility] [address] [id number] [place] [address] Apr, [facility] [address] [id number] [place] [address] Apr, [facility] [address] [id number] [place] [address] Mar, [facility] [address] [id number] [place] [address] Mar, [facility] [address] [id number] [place] [address] Mar, [facility] [address] [id number] [place] [address] Mar, [facility] [address] [id number] [place] [address] Mar, [facility] [address] [id number] [place] [address] Mar, [facility] [address] [id number] [place] [address] Mar, [facility] [address] [facility] [id number] [place] [address] Mar, [facility] [address] [id number] [place] [address] Mar, [facility] [address] [id number] [place] [address] Mar, [facility] [place] [facility] [address] [id number] [place] [address] Jan, [facility] [place] [facility] [address] [id number] [place] [address] Jan, [facility] [place] [facility] [address] [id number] [place] [address] Jan, [facility] [place] [facility] [address] [id number] [place] [address] Jan, [facility] [place] [facility] [address] [id number] [place] [address] Jan, [facility] [place] [facility] [address] [id number] [place] [address] Jan, [facility] [place] [facility] [address] [id number] [place] [address] Jan, [facility] [place] [facility] [address] [id number] [place] [address] Jan, [facility] [place] [facility] [address] [id number] [place] [address] Jan, [facility] [place] [facility] [address] [id number] [place] [address] Jan, [facility] [place] [facility] [address] [id number] [place] [address] Jan, [facility] [place] [facility] [address] [id number] [place] [address] Jan, [facility] [place] [facility] [address] [id number] [place] [address] Dec, [facility] [place] [facility] [address] [id number] [place] [address] Dec, [facility] [place] [facility] [address] [id number] [place] [address] Dec, [facility] [place] [facility] [address] [id number] [place] [address] Dec, [facility] [place] [facility] [address] [id number] [place] [address] Dec, [facility] [place] [facility] [address] [id number] [place] [address] Dec, [facility] [place] [facility] [address] [id number] [place] [address] Dec, [facility] [place] [facility] [address] [id number] [place] [address] Dec, [facility] [place] [facility] [address] [id number] [place] [address] Dec, [facility] [place] [facility] [address] [id number] [place] [address] Dec, [facility] [place] [facility] [address] [id number] [place] [address] Nov, [facility] [place] [facility] [address] [id number] [place] [address] Nov, [facility] [place] [facility] [address] [id number] [place] [address] Nov, [facility] [place] [facility] [address] [id number] [place] [address] Nov, [facility] [place] [facility] [address] [id number] [place] [address] Nov, [facility] [place] [facility] [address] [id number] [place] [address] Nov, [facility] [place] [facility] [address] [id number] [place] [address] Nov, [facility] [place] [facility] [address] [id number] [place] [address] Nov, [facility] [place] [facility] [address] [id number] [place] [address] Nov, [facility] [place] [facility] [address] [id number] [place] [address] Nov, [facility] [place] [facility] [address] [id number] [place] [address] Nov, [facility] [place] [facility] [address] [id number] [place] [address] Nov, [facility] [place] [facility] [address] [id number] [place] [address] 14 Nov, 2013 [facility] [place] [facility] [address] [id number] [place] [address] 14 Nov, 2013 [facility] [place] [facility] [address] [id number] [place] [address] 10 Nov, 2013 [facility] [place] [facility] [address] [id number] [place] [address] 10 Nov, 2013 [facility] [place] [facility] [address] [id number] [place] [address] 08 Nov, 2013 [facility] [place] [facility] [address] [id number] [place] [address] Nov, [facility] [place] [facility] [address] [id number] [place] [address] Nov, [facility] [place] [facility] [address] [id number] [place] [address] Nov, [facility] [place] [facility] [address] [id number] [place] [address] 26 Oct, 2013 [facility] [place] [facility] [address] [id number] [place] [address] 26 Oct, 2013 [facility] [place] [facility] [address] [id number] [place] [address] 19 Oct, 2013 [facility] [place] [facility] [address] [id number] [place] [address] 19 Oct, 2013 [facility] [place] [facility] [address] [id number] [place] [address] 12 Oct, 2013 [facility] [place] [facility] [address] [id number] [place] [address] 12 Oct, 2013 [facility] [place] [facility] [address] [id number] [place] [address] 10 Oct, 2013 [facility] [place] [facility] [address] [id number] [place] [address] Oct, [facility] [place] [facility] [address] [id number] [place] [address] Oct, [facility] [place] [facility] [address] [id number] [place] [address] Oct, [facility] [place] [facility] [address] [id number] [place] [address] Sep, [facility] [place] [facility] [address] [id number] [place] [address] Sep, [facility] [place] [facility] [address] [id number] [place] [address] Sep, [facility] [place] [facility] [address] [id number] [place] [address] Sep, [facility] [place] [facility] [address] [id number] [place] [address] Sep, [facility] [place] [facility] [address] [id number] [place] [address] Sep, [facility] [place] [facility] [address] [id number] [place] [address] Sep, [facility] [place] [facility] [address] [id number] [place] [address] Sep, [facility] [place] [facility] [address] [id number] [place] [address] Sep, [facility] [place] [facility] [address] [id number] [place] [address] Sep, [facility] [place] [facility] [address] [id number] [place] [address] Sep, [facility] [place] [facility] [address] [id number] [place] [address] Sep, [facility] [place] [facility] [address] [id number] [place] [address] Sep, [facility] [place] [facility] [address] [id number] [place] [address] Sep, [facility] [place] [facility] [address] [id number] [place] [address] Sep, [facility] [place] [facility] [address] [id number] [place] [address] Sep, [facility] [place] [facility] [address] [id number] [place] [address] Sep, [facility] [place] [facility] [address] [id number] [place] [address] Sep, [facility] [place] [facility] [address] [id number] [place] [address] Sep, [facility] [place] [facility] [address] [id number] [place] [address] Sep, [facility] [place] [facility] [address] [id number] [place] [address] Sep, [facility] [place] [facility] [address] [id number] [place] [address] Sep, [facility] [place] [facility] [address] [id number] [place] [address] Sep, [facility] [place] [facility] [address] [id number] [place] [address] Sep, [facility] [place] [facility] [address] [id number] [place] [address] Sep, [facility] [place] [facility] [address] [id number] [place] [address] Aug, [facility] [place] [facility] [address] [id number] [place] [address] Aug, [facility] [place] [facility] [address] [id number] [place] [address] Aug, [facility] [place] [facility] [address] [id number] [place] [address] Aug, [facility] [place] [facility] [address] [id number] [place] [address] Aug, 2013 [facility] [place] [facility] [address] [id number] [place] [address] Aug, [facility] [place] [facility] [address] [id number] [place] [address] Aug, 2013 [facility] [place] [facility] [address] [id number] [place] [address] Aug, 2013 [facility] [place] [facility] [address] [id number] [place] [address] Aug, [facility] [place] [facility] [address] [id number] [facility] [place] [address] Aug, [facility] [place] [facility] [address] [id number] [place] [address] Aug, [facility] [place] [facility] [address] [id number] [place] [address] Aug, [facility] [place] [facility] [address] [id number] [place] [address] Aug, [facility] [place] [facility] [address] [id number] [place] [address] Jul, [facility] [place] [facility] [address] [id number] [place] [address] Jul, [facility] [place] [facility] [address] [id number] [place] [address] Jul, [facility] [place] [facility] [address] [id number] [place] [address] Jul, [facility] [place] [facility] [address] [id number] [place] [address] Jul, [facility] [place] [facility] [address] [id number] [place] [address] Jul, [facility] [place] [facility] [address] [id number] [place] [address] Jul, [facility] [place] [facility] [address] [id number] [place] [address] June, [facility] [place] [facility] [address] [id number] [place] [address] June, [facility] [place] [facility] [address] [id number] [place] [address] June, [facility] [place] [facility] [address] [id number] [place] [address] June, [facility] [place] [facility] [address] [id number] [place] [address] May, [facility] [place] [facility] [address] [id number] [place] [address] May, [facility] [place] [facility] [address] [id number] [place] [address] May, [facility] [place] [facility] [address] [id number] [place] [address] May, [facility] [place] [facility] [address] [id number] [place] [address] May, [facility] [place] [facility] [address] [id number] [place] [address] May, [facility] [place] [facility] [address] [id number] [place] [address] May, [facility] [place] [facility] [address] [id number] [place] [address] May, [facility] [place] [facility] [address] [id number] [place] [address] May, [facility] [place] [facility] [address] [id number] [place] [address] May, [facility] [place] [facility] [address] [id number] [place] [address] Apr, [facility] [place] [facility] [address] [id number] [place] [address] Apr, [facility] [place] [facility] [address] [id number] [place] [address] Apr, [facility] [place] [facility] [address] [id number] [place] [address] Apr, [facility] [place] [facility] [address] [id number] [place] [address] Apr, [facility] [place] [facility] [address] [id number] [place] [address] Apr, [facility] [place] [facility] [address] [id number] [place] [address] Apr, [facility] [place] [facility] [address] [id number] [place] [address] Apr, [facility] [place] [facility] [address] [id number] [place] [address] Apr, [facility] [place] [facility] [address] [id number] [place] [address] Apr, [facility] [place] [facility] [address] [id number] [place] [address] Mar, [facility] [place] [facility] [address] [id number] [place] [address] Mar, [facility] [place] [facility] [address] [id number] [place] [address] Mar, [facility] [place] [facility] [address] [id number] [place] [address] Mar, [facility] [place] [facility] [address] [id number] [place] [address] Mar, [facility] [place] [facility] [address] [id number] [place] [address] Mar, [facility] [place] [facility] [address] [id number] [place] [address] Jan, [facility] [address] [id number] [place] [address] Jan, [facility] [place] [facility] [address] [id number] [place] [address] Jan, [facility] [place] [facility] [address] [facility] [id number] [place] [address] Jan, [facility] [place] [facility] [address] [id number] [place] [address] Jan, [facility] [address] [id number] [place] [address] Jan, [facility] [place] [facility] [address] [id number] [place] [address] Jan, [facility] [place] [facility] [address] [facility] [id number] [place] [address] Jan, [facility] [place] [facility] [address] [id number] [place] [address] Jan, [facility] [place] [facility] [address] [id number] [place] [address] Dec, [facility] [place] [facility] [address] [id number] [place] [address] Dec, [facility] [place] [facility] [address] [id number] [place] [address] Dec, [facility] [place] [facility] [address] [id number] [place] [address] Dec, [facility] [place] [facility] [address] [id number] [place] [address] Dec, [facility] [place] [facility] [address] [id number] [place] [address] Dec, [facility] [place] [facility] [address] [facility] [id number] [place] [address] Dec, [facility] [place] [facility] [address] [id number] [place] [address] Dec, [facility] [place] [facility] [address] [id number] [place] [address] Dec, [facility] [place] [facility] [address] [id number] [place] [address] Dec, [facility] [place] [facility] [address] [id number] [place] [address] Dec, [facility] [place] [facility] [address] [id number] [place] [address] Nov, [facility] [place] [facility] [address] [id number] [place] [address] Nov, [facility] [place] [facility] [address] [id number] [place] [address] Nov, [facility] [place] [facility] [address] [id number] [place] [address] Nov, [facility] [place] [facility] [address] [id number] [place] [address] Nov, [facility] [place] [facility] [address] [id number] [place] [address] Oct, [facility] [place] [facility] [address] [id number] [place] [address] Oct, [facility] [place] [facility] [address] [id number] [place] [address] Sep, [facility] [place] [facility] [address] [id number] [place] [address] Aug, [facility] [place] [facility] [address] [id number] [place] [address] Aug, [facility] [place] [facility] [address] [id number] [place] [address] Aug, [facility] [place] [facility] [address] [id number] [place] [address] Aug, [facility] [place] [facility] [address] [id number] [place] [address] Jul, [facility] [address] [id number] [place] [address] Jul, [facility] [address] [id number] [place] [address] June, [facility] [address] [id number] [place] [address] June, [facility] [address] [id number] [place] [address] June, [facility] [address] [id number] [place] [address] May, [facility] [address] [id number] [place] [address] May, [facility] [address] [id number] [place] [address] May, [facility] [address] [id number] [place] [address] Apr, [facility] [address] [id number] [place] [address] 18 Apr, 2012 [facility] [address] [id number] [place] [address] 15 Apr, 2012 [facility] [address] [id number] [place] [address] 14 Apr, 2012 [facility] [address] [id number] [place] [address] Apr, [facility] [place] [facility] [address] [id number] [place] [address] Apr, [facility] [address] [id number] [place] [address] Apr, [facility] [address] [id number] [place] [address] Apr, [facility] [address] [id number] [place] [address] Apr, [facility] [address] [id number] [place] [address] 20 Apr, 2012 [facility] [address] [id number] [place] [address] 19 Apr, 2012 [facility] [address] [id number] [place] [address] Apr, [facility] [address] [id number] [place] [address] 07 Apr, 2012 [facility] [address] [id number] [place] [address] Mar, [facility] [address] [id number] [place] [address] Mar, [facility] [address] [id number] [place] [address] 16 Mar, 2012 [facility] [address] [id number] [place] [address] Mar, [facility] [address] [id number] [place] [address] Mar, [facility] [address] [id number] [place] [address] Jan, [facility] [address] [id number] [place] [address] Jan, [facility] [place] [facility] [address] [id number] [place] [address] Jan, [facility] [place] [facility] [address] [id number] [place] [address] Jan, [facility] [address] [id number] [place] [address] 14 Jan, 2012 [facility] [place] [facility] [address] [id number] [place] [address] 13 Jan, 2012 [facility] [place] [facility] [address] [id number] [place] [address] 13 Jan, 2012 [facility] [place] [facility] [address] [id number] [place] [address] 11 Jan, 2012 [facility] [place] [facility] [address] [id number] [place] [address] 06 Jan, 2012 [facility] [address] [id number] [place] [address] 06 Jan, 2012 [facility] [place] [facility] [address] [id number] [place] [address] Jan, [facility] [address] [id number] [place] [address] Jan, [facility] [address] [id number] [place] [address] Jan, [facility] [place] [facility] [address] [id number] [place] [address] Jan, [facility] [place] [facility] [address] [id number] [place] [address] Dec, [facility] [place] [facility] [address] [id number] [place] [address] Dec, [facility] [place] [facility] [address] [id number] [place] [address] Dec, [facility] [place] [facility] [address] [id number] [place] [address] Dec, [facility] [place] [facility] [address] [id number] [place] [address] 15 Jan, 2012 [facility] [place] [facility] [address] [id number] [place] [address] 15 Jan, 2012 [facility] [place] [facility] [address] [id number] [place] [address] 14 Jan, 2012 [facility] [place] [facility] [address] [id number] [place] [address] 14 Jan, 2012 [facility] [place] [facility] [address] [id number] [place] [address] 14 Jan, 2012 [facility] [place] [facility] [address] [id number] [place] [address] 14 Jan, 2012 [facility] [place] [facility] [address] [id number] [place] [address] 07 Jan, 2012 [facility] [place] [facility] [address] [id number] [place] [address] 07 Jan, 2012 [facility] [place] [facility] [address] [id number] [place] [address] 16 Dec, 2011 [facility] [place] [facility] [address] [id number] [place] [address] 16 Dec, 2011 [facility] [place] [facility] [address] [id number] [place] [address] 13 Nov, 2011 [facility] [place] [facility] [address] [id number] [place] [address] 13 Nov, 2011 [facility] [place] [facility] [address] [id number] [place] [address] 13 Nov, 2011 [facility] [place] [facility] [address] [id number] [place] [address] 12 Nov, 2011 [facility] [place] [facility] [address] [id number] [place] [address] 30 Oct, 2011 [facility] [place] [facility] [address] [id number] [place] [address] Sep, [facility] [place] [facility] [address] [id number] [place] [address] 23 Aug, 2011 [facility] [place] [facility] [address] [id number] [place] [address] 13 Aug, 2011 [facility] [place] [facility] [address] [id number] [place] [address] Aug, [facility] [address] [id number] [place] [address] Aug, [facility] [address] [id number] [place] [address] June, [facility] [address] [id number] [place] [address] June, [facility] [address] [id number] [place] [address] May, [facility] [address] [id number] [place] [address] Apr, [facility] [address] [id number] [place] [address] Apr, [facility] [address] [id number] [place] [address] Apr, [facility] [address] [id number] [place] [address] Apr, [facility] [address] [id number] [place] [address] Apr, [facility] [address] [id number] [place] [address] Apr, [facility] [address] [id number] [place] [address] Mar, [facility] [address] [id number] [place] [address] Mar, [facility] [place] [facility] [address] [id number] [place] [address] Mar, [facility] [address] [id number] [place] [address] Jan, [facility] [address] [id number] [place] [address] Jan, [facility] [place] [facility] [address] [id number] [place] [address] Jan, [facility] [place] [facility] [address] [id number] [place] [address] Jan, [facility] [place] [facility] [address] [id number] [place] [address] Jan, [facility] [place] [facility] [address] [id number] [place] [address] Jan, [facility] [place] [facility] [address] [id number] [place] [address] Jan, [facility] [place] [facility] [address] [id number] [place] [address] Dec, [facility] [place] [facility] [address] [id number] [place] [address] Dec, [facility] [place] [facility] [address] [id number] [place] [address] Nov, [facility] [place] [facility] [address] [id number] [place] [address] Nov, [facility] [place] [facility] [address] [id number] [place] [address] Nov, [facility] [place] [facility] [address] [id number] [place] [address] Nov, [facility] [place] [facility] [address] [id number] [place] [address] Oct, [facility] [place] [facility] [address] [id number] [place] [address] Sep, [facility] [place] [facility] [address] [id number] [place] [address] Mar, [facility] [place] [facility] [address] [id number] [place] [address] Jan, [facility] [place] [facility] [address] [id number] [place] [address] 09 Dec, 2009 [facility] [address] [id number] [place] [address] 06 Dec, 2009 [facility] [place] [facility] [address] [id number] [place] [address] 04 Dec, 2009 [facility] [place] [facility] [address] [id number] [place] [address] Dec, [facility] [place] [facility] [address] [id number] [place] [address] 26 Nov, 2009 [facility] [place] [facility] [address] [id number] [place] [address] 15 Nov, 2009 [facility] [place] [facility] [address] [id number] [place] [address] 14 Nov, 2009 [facility] [place] [facility] [address] [id number] [place] [address] 14 Nov, 2009 [facility] [place] [facility] [address] [id number] [place] [address] 13 Oct, 2009 [facility] [place] [facility] [address] [id number] [place] [address] 17 Jul, 2009 [facility] [place] [facility] [address] [facility] [id number] [place] [address] June, [facility] [place] [facility] [address] [id number] [place] [address] 14 Jun, 2009 [facility] [place] [facility] [address] [id number] [place] [address] Apr, [facility] [place] [facility] [address] [id number] [place] [address] Mar, [facility] [place] [facility] [address] [id number] [place] [address] Jan, [facility] [place] [facility] [address] [id number] [place] [address] Jan, [facility] [address] [id number] [place] [address] Dec, [facility] [id number] [address] Dec, [facility] [id number] [address] Dec, [facility] [id number] [place] [address] Dec, [facility] [id number] [place] [address] Nov, [facility] [id number] [place] [address] Jul, [facility] [id number] [address] June, IMMUNIZATIONS No Known Immunizations SOCIAL HISTORY Never Assessed REASON FOR [place]IT [place] [place] VITAL SIGNS MEDICATIONS Unknown Medications RESULTS No Results PROCEDURES No Known procedures INSTRUCTIONS MEDICATIONS ADMINISTERED No Known Medications MEDICAL (GENERAL) HISTORY Type Description Date Medical History hypertension Medical History sleep apnea-did not tolerate CPAP Medical History oxygen dependent at [facility] Medical History colonic polyps Medical [...]
--- OUTSIDE RECORDS SUMMARY | 2018-08-23 17:08 | XMS REPORT ---
Author Author Migration, Doctor Organization [facility] Address Unknown Phone Unavailable Care Team Providers Care Supervisor/Port Director Name Role Phone Migration, Doctor Unavailable Unavailable PROBLEMS Type Condition ICD9-CM Code [id number] Code Onset Dates Condition Status SNOMED Code Problem Pulmonary asbestosis J61 Active 04018430 Problem Renal cyst, left N28.1 Active 32390872 Problem Left ventricular diastolic dysfunction I51.9 Active 174858838 Problem Urge incontinence N39.41 Active 097252354 Problem Anxiety F41.9 Active 14298006 Problem Low back pain M54.5 Active 181461533 Problem Age-related osteoporosis without current pathological fracture M81.0 Active 71193310 Problem History of diverticulitis Z87.19 Active 118436631004594 Problem Allergic rhinitis, unspecified allergic rhinitis type J30.9 Active 51105250 Problem Nephrolithiasis N20.0 Active 54849618 Problem Nocturnal hypoxia G47.34 Active 999321375 Problem Psoriasis L40.9 Active 0598857 Problem Essential hypertension I10 Active 42986073 Problem Chronic gout, unspecified cause, unspecified site M1A.9XX0 Active 58315739 Problem Esophageal stricture K22.2 Active 06924730 Problem Obstructive sleep apnea syndrome G47.33 Active 61269027 Problem History of weight loss surgery Z98.84 Active 071770943 Problem 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 Active 86517369 Problem Chronic prescription opiate use Z79.899 Active 561255580 Problem Moderate episode of recurrent major depressive disorder F33.1 Active 032768428 Problem Chronic obstructive pulmonary disease, unspecified COPD type J44.9 Active 04252817 Problem Primary insomnia F51.01 Active 368666394 Problem Neuropathy G62.9 Active 329414347 Problem Cervicalgia M54.2 Active 5616840939117 Problem Hyperlipidemia, unspecified E78.5 Active 87465452 Problem Benign prostatic hyperplasia, presence of lower urinary tract symptoms unspecified, unspecified morphology N40.0 Active 008087271 Problem Acute right-sided low back pain with right-sided sciatica M54.41 Active 239375878 Problem Erectile dysfunction due to diseases classified elsewhere N52.1 Active 768643872 Problem Hammertoe of left foot M20.42 Active 047447143 ALLERGIES No Information ENCOUNTERS Encounter Location Date Diagnosis [facility] [id number] [place] [address] May, [facility] [id number] [place] [address] May, [facility] [address] [address] May, [facility] [address] [address] Apr, Moderate episode of recurrent major depressive disorder F33.1 ; Morbid obesity E66.01 ; Hyperlipidemia, unspecified E78.5 ; Primary insomnia F51.01 and Low back pain M54.5 [facility] [address] [address] Apr, Primary insomnia F51.01 [facility] [address] [address] Apr, Anxiety F41.9 [facility] [id number] [place] [address] 15 Apr, 2018 Low back pain M54.5 [facility] [id number] [place] [address] Apr, Anxiety F41.9 [facility] [id number] [place] [address] Mar, Moderate episode of recurrent major depressive disorder F33.1 ; BMI 50.0-59.9, adult Z68.43 ; Anxiety F41.9 and Chronic prescription opiate use Z79.899 [facility] [id number] [place] [address] Mar, Onychomycosis B35.1 ; Neuropathy G62.9 and Impaired circulation I99.9 [facility] [id number] [place] [address] Mar, Low back pain M54.5 [facility] [address] [address] Mar, Anxiety F41.9 [facility] [id number] [place] [address] Jan, BMI 50.0-59.9, adult Z68.43 ; Chronic obstructive pulmonary disease, unspecified COPD type J44.9 ; Low back pain M54.5 and Moderate episode of recurrent major depressive disorder F33.1 [facility] [address] [address] Jan, [facility] [address] [address] Jan, [facility] [address] [address] Dec, Anxiety F41.9 [facility] [id number] [place] [address] Dec, [facility] [address] [address] Dec, Anxiety F41.9 [facility] [id number] [place] [address] Dec, [facility] [id number] [place] [address] Dec, Encounter for immunization Z23 [facility] [id number] [place] [address] Dec, [facility] [address] [address] Dec, Hammertoe of left foot M20.42 ; Edema of left foot R60.0 and Onychomycosis B35.1 [facility] [address] [place] [address] Nov, BMI 50.0-59.9, adult Z68.43 [facility] [address] [address] Nov, [facility] [id number] [place] [address] Nov, [facility] [address] [address] Nov, Anxiety F41.9 [facility] [address] [address] Oct, [facility] [address] [address] Oct, [facility] [address] [address] Oct, BMI 45.0-49.9, adult Z68.42 ; Essential hypertension I10 ; Hyperlipidemia, unspecified E78.5 ; Anxiety F41.9 ; Obstructive sleep apnea syndrome G47.33 ; Moderate episode of recurrent major depressive disorder F33.1 ; Left ventricular diastolic dysfunction I51.9 ; Acute pain of right shoulder M25.511 ; Pain of left foot M79.672 and Pain in right foot M79.671 [facility] [id number] [place] [address] Oct, Anxiety F41.9 [facility] [id number] [place] [address] Sep, Left foot pain M79.672 [facility] [id number] [place] [address] Sep, [facility] [id number] [place] [address] Sep, Anxiety F41.9 [facility] [id number] [place] [address] Sep, [facility] [address] [address] Aug, [facility] [id number] [place] [address] Aug, [facility] [id number] [place] [address] Aug, Anxiety F41.9 [facility] [id number] [place] [address] Aug, [facility] [id number] [place] [address] Jul, [facility] [id number] [place] [address] Jul, Anxiety F41.9 [facility] [id number] [place] [address] June, Anxiety F41.9 [facility] [id number] [place] [address] June, [facility] [id number] [place] [address] June, Low back pain M54.5 ; Chronic prescription opiate use Z79.899 ; Candidal intertrigo B37.2 ; Urge incontinence N39.41 ; Essential hypertension I10 ; Moderate episode of recurrent major depressive disorder F33.1 ; Age-related osteoporosis without current pathological fracture M81.0 and BMI 45.0-49.9, adult Z68.42 [facility] [address] [place] [address] June, [facility] [id number] [place] [address] May, Anxiety F41.9 [facility] [id number] [place] [address] May, [facility] [id number] [place] [address] May, [facility] [id number] [place] [address] Apr, Anxiety F41.9 [facility] [id number] [place] [address] Apr, [facility] [address] [address] Apr, Low back pain M54.5 [facility] [address] [address] Apr, [facility] [address] [address] Apr, [facility] [id number] [place] [address] Apr, Anxiety F41.9 [facility] [id number] [place] [address] Apr, Right groin pain R10.31 [facility] [id number] [place] [address] Mar, [facility] [id number] [place] [address] Mar, [facility] [id number] [place] [address] Mar, Anxiety F41.9 [facility] [id number] [place] [address] Mar, Low back pain M54.5 [facility] [address] [address] Mar, Right groin pain R10.31 ; Low back pain M54.5 and BMI 45.0-49.9, adult Z68.42 [facility] [address] [address] Mar, [facility] [address] [place] [address] Mar, [facility] [id number] [place] [address] Mar, [facility] [id number] [place] [address] Mar, [facility] [id number] [place] [address] Mar, Cough R05 ; Pneumonia of right lower lobe due to infectious organism J18.1 and Abnormal chest x-ray R93.8 [facility] [id number] [place] [address] Mar, [facility] [id number] [place] [address] Mar, [facility] [id number] [place] [address] Jan, Anxiety F41.9 [facility] [id number] [place] [address] Jan, [facility] [id number] [place] [address] Jan, Moderate episode of recurrent major depressive disorder F33.1 [facility] [id number] [place] [address] Jan, Subacromial bursitis of right shoulder joint M75.51 ; Shortness of breath on exertion R06.02 and BMI 45.0-49.9, adult Z68.42 [facility] [id number] [place] [address] Dec, Anxiety F41.9 [facility] [id number] [place] [address] Dec, [facility] [id number] [place] [address] Dec, Low back pain M54.5 [facility] [id number] [place] [address] Oct, Low back pain M54.5 [facility] [id number] [place] [address] Sep, [facility] [id number] [place] [address] Sep, Erectile dysfunction due to diseases classified elsewhere N52.1 [facility] [id number] [place] [address] Sep, Erectile dysfunction due to diseases classified elsewhere N52.1 [facility] [id number] [place] [address] Sep, [facility] [id number] [place] [address] Sep, Erectile dysfunction due to diseases classified elsewhere N52.1 [facility] [id number] [place] [address] Sep, Low back pain M54.5 and Anxiety F41.9 [facility] [id number] [place] [address] Aug, Acute allergic rhinitis J30.9 [facility] [address] [place] [address] Aug, [facility] [id number] [place] [address] Aug, Anxiety F41.9 [facility] [id number] [place] [address] 15 Jul, 2016 Low back pain M54.5 ; Chronic prescription opiate use Z79.899 and Essential hypertension I10 [facility] [address] [place] [address] Jul, Anxiety F41.9 and Low back pain M54.5 [facility] [address], [place] [address] June, [facility] [id number] [place] [address] June, Anxiety F41.9 [facility] [address] [place] [address] May, Low back pain M54.5 [facility] [id number] [place] [address] May, [facility] [id number] [place] [address] May, Anxiety F41.9 [facility] [id number] [place] [address] Apr, [facility] [id number] [place] [address] Apr, Low back pain M54.5 [facility] [address] [place] [address] Apr, Moderate episode of recurrent major depressive disorder F33.1 [facility] [id number] [place] [address] Apr, Anxiety F41.9 [facility] [address] [place] [address] Apr, Low back pain M54.5 [facility] [address] [place] [address] 15 Apr, 2016 Elevated alkaline phosphatase level R74.8 [facility] [id number] [place] [address] 10 Apr, 2016 Alkaline phosphatase elevation R74.8 [facility] [address] [place] [address] 06 Apr, 2016 Anxiety F41.9 [facility] [id number] [place] [address] 03 Apr, 2016 Low back pain M54.5 [facility] [id number] [place] [address] 03 Apr, 2016 History of weight loss surgery Z98.84 ; Encounter for hepatitis C screening test for low risk patient Z11.59 ; History of herpes genitalis Z86.19 ; Essential hypertension I10 ; Hyperlipidemia, unspecified E78.5 ; Exposure to STD Z20.2 and Benign prostatic hyperplasia, presence of lower urinary tract symptoms unspecified, unspecified morphology N40.0 [facility] [id number] [place] [address] 02 Apr, 2016 [facility] [id number] [place] [address] Mar, [facility] [id number] [place] [address] Mar, [facility] [id number] [place] [address] Mar, [facility] [id number] [place] [address] Mar, Acute right-sided low back pain with right-sided sciatica M54.41 [facility] [id number] [place] [address] Mar, Low back pain M54.5 [facility] [id number] [place] [address] Mar, Muscle strain of chest wall, initial encounter S29.011A ; Muscle strain of right thigh, initial encounter S76.911A and Acute non-recurrent maxillary sinusitis J01.00 [facility] [id number] [place] [address] Mar, Benign prostatic hyperplasia, presence of lower urinary tract symptoms unspecified, unspecified morphology N40.0 [facility] [id number] [place] [address] Jan, Low back pain M54.5 [facility] [id number] [place] [address] Jan, Low back pain M54.5 ; Essential hypertension I10 ; Hyperlipidemia, unspecified E78.5 ; Anxiety F41.9 ; Moderate episode of recurrent major depressive disorder F33.1 ; Primary insomnia F51.01 ; Exposure to STD Z20.2 ; Encounter for hepatitis C screening test for low risk patient Z11.59 and History of herpes genitalis Z86.19 [facility] [address] [address] 17 Jan, 2016 [facility] [address] [address] 20 Dec, 2015 [facility] [address] [address] 14 Dec, 2015 Anxiety F41.9 ; Cervicalgia M54.2 ; Moderate episode of recurrent major depressive disorder F33.1 and Encounter for immunization Z23 [facility] [id number] [place] [address] Oct, [facility] [address] [address] 22 Nov, 2015 [facility] [id number] [place] [address] 16 Nov, 2015 [facility] [id number] [place] [address] Oct, [facility] [id number] [place] [address] Sep, [facility] [address] [address] Aug, Low back pain M54.5 ; Anxiety F41.9 ; Primary insomnia F51.01 and Chronic prescription opiate use Z79.899 [facility] [address] [address] Jul, [facility] [address] [facility] [id number] [place] [address] Jul, [facility] [address] [id number] [place] [address] Jul, [facility] [address] [facility] [id number] [place] [address] Jul, [facility] [address] [facility] [id number] [place] [address] Jul, [facility] [address] [id number] [place] [address] June, [facility] [address] [facility] [id number] [place] [address] June, [facility] [address] [facility] [id number] [place] [address] June, [facility] [address] [facility] [id number], [place] [address] June, [facility] [id number] [address] May, Preoperative cardiovascular examination Z01.810 [facility] [id number] [address] May, [facility] [address] [place] [address] Apr, [facility] [address] [facility] [id number], [place] [address] Apr, Osteoarthritis of right knee M17.9 [facility] [id number] [place] [address] 30 May, 2015 [facility] [address] [facility] [id number] [place] [address] 16 May, 2015 [facility] [id number] [address] Apr, [facility] [id number] [place] [address] Apr, [facility] [id number] [place] [address] Apr, History of excessive cerumen Z78.9 ; Obstructive sleep apnea syndrome G47.33 ; History of diverticulitis Z87.19 and Nephrolithiasis N20.0 [facility] [id number] [place] [address] 29 Apr, 2015 [facility] [id number] [place] [address] Apr, Abdominal pain R10.9 [facility] [id number] [place] [address] 10 Apr, 2015 [facility] [facility] [address] [address] 04 Apr, 2015 Osteoarthritis of right knee M17.9 [facility] [id number] [place] [address] Mar, [facility] [id number] [place] [address] 15 Mar, 2015 [facility] [id number] [place] [address] Mar, [facility] [id number] [place] [address] Mar, [facility] [id number] [place] [address] 13 Mar, 2015 Pyelonephritis N12 ; Left-sided thoracic back pain M54.6 ; Hematuria, unspecified R31.9 and Kidney stone N20.0 [facility] [id number] [place] [address] 12 Mar, 2015 History of weight loss surgery Z98.84 [facility] [address] [place] [address] 07 Mar, 2016 History of weight loss surgery Z98.84 and Hyperlipidemia, unspecified E78.5 [facility] [id number] [place] [address] Mar, 2016 Low back pain M54.5 ; Chronic prescription opiate use Z79.899 ; Hyperlipidemia, unspecified E78.5 ; Spasm of back muscles M62.830 and History of weight loss surgery Z98.84 [facility] [id number] [place] [phone] Jan, [facility] [id number] [place] [phone] Jan, [facility] [id number] [place] [phone] Jan, [facility] [id number] [place] [phone] Dec, [facility] [id number] [place] [phone] Dec, [facility] [id number] [place] [phone] Dec, [facility] [id number] [place] [phone] Nov, [facility] [id number] [place] [phone] Nov, Obstructive sleep apnea syndrome G47.33 and Pharyngoesophageal dysphagia R13.14 [facility] [id number] [address] Nov, [facility] [id number] [place] [phone] Nov, [facility] [id number] [place] [address] Nov, [facility] [id number] [place] [id number] Oct, 2014 Dental examination V72.2 [facility] [id number] [place] [phone] Oct, [facility] [id number] [place] [phone] Oct, [facility] [id number] [place] [phone] Oct, [facility] [address] [phone] Oct, [facility] [address] [address] Oct, BPH (benign prostatic hyperplasia) 600.00 and Urinary frequency 788.41 [facility] [id number] [place] [phone] Oct, [facility] [id number] [place] [phone] Oct, [facility] [id number] [place] [phone] Oct, [facility] [id number] [place] [phone] Sep, Cerumen impaction 380.4 ; Cerumen debris on tympanic membrane 380.4 ; Psoriasis 696.1 and MICKY (secretory otitis media) 381.4 [facility] [id number] [place] [id number] Sep, Dental examination V72.2 [facility] [id number] [place] [address] Sep, Fatigue 780.79 ; Irritable bowel syndrome 564.1 ; Overweight 278.02 ; Poor sleep V69.4 ; Shaking spells 781.0 and Broken tooth 873.63 [facility] [id number] [place] [address] Sep, [facility] [address] [id number] [place] [address] Sep, [facility] [address] [id number] [place] [address] Aug, [facility] [address] [facility] [id number] [place] [address] Jul, [facility] [address] [facility] [id number] [place] [address] Jul, [facility] [address] [facility] [id number] [place] [address] Jul, [facility] [id number] [place] [address] Jul, [facility] [id number] [place] [address] June, Arthritis of knee, right 716.96 [facility] [id number] [place] [address] June, [facility] [id number] [place] [address] June, Elevated blood pressure reading without diagnosis of hypertension 796.2 [facility] [id number] [place] [address] June, [facility] [id number] [place] [address] June, [facility] [address] [id number] [place] [address] June, [facility] [id number] [place] [address] June, [facility] [address] [id number] [place] [address] May, [facility] [id number] [place] [address] 13 May, 2014 [facility] [place] [facility] [address] [id number] [place] [address] 30 Apr, 2014 [facility] [place] [facility] [address] [id number] [place] [address] 30 Apr, 2014 [facility] [place] [facility] [address] [id number] [place] [address] Apr, [facility] [place] [facility] [address] [id number] [place] [address] Apr, [facility] [place] [facility] [address] [id number] [place] [address] Apr, [facility] [place] [facility] [address] [id number] [place] [address] Apr, [facility] [place] [facility] [address] [id number] [place] [address] Apr, [facility] [place] [facility] [address] [id number] [place] [address] Apr, [facility] [place] [facility] [address] [id number] [place] [address] Apr, [facility] [place] [facility] [address] [id number] [place] [address] Apr, [facility] [place] [facility] [address] [id number] [place] [address] Apr, [facility] [place] [facility] [address] [id number] [place] [address] Apr, [facility] [place] [facility] [address] [id number] [place] [address] Apr, [facility] [place] [facility] [address] [id number] [place] [address] Apr, [facility] [place] [facility] [address] [id number] [place] [address] Apr, [facility] [place] [facility] [address] [id number] [place] [address] 23 Apr, 2014 [facility] [place] [facility] [address] [id number] [place] [address] Apr, 2014 [facility] [place] [facility] [address] [id number] [place] [address] 20 Apr, 2014 [facility] [place] [facility] [address] [facility] [id number] [place] [address] 18 Apr, 2014 [facility] [place] [facility] [address] [id number] [place] [address] 18 Apr, 2014 [facility] [place] [facility] [address] [facility] [id number] [place] [address] 13 Apr, 2014 [facility] [place] [facility] [address] [facility] [id number] [place] [address] 13 Apr, 2014 [facility] [place] [facility] [address] [facility] [id number] [place] [address] 13 Apr, 2014 [facility] [place] [facility] [address] [facility] [id number] [place] [address] 13 Apr, 2014 [facility] [place] [facility] [address] [facility] [id number] [place] [address] 12 Apr, 2014 [facility] [place] [facility] [address] [facility] [id number] [place] [address] Apr, 2014 [facility] [place] [facility] [address] [facility] [id number], [place] [address] Apr, 2014 [facility] [place] [facility] [address] [facility] [id number] [place] [address] Apr, 2014 [facility] [place] [facility] [address] [facility] [id number] [place] [address] Apr, 2014 [facility] [place] [facility] [address] [facility] [id number] [place] [address] Apr, 2014 [facility] [place] [facility] [address] [facility] [id number] [place] [address] Apr, [facility] [address] [id number] [place] [address] Apr, [facility] [address] [id number] [place] [address] Apr, [facility] [address] [id number] [place] [address] Mar, [facility] [address] [id number] [place] [address] Mar, [facility] [address] [id number] [place] [address] Mar, [facility] [address] [id number] [place] [address] Mar, [facility] [address] [id number] [place] [address] Mar, [facility] [address] [id number] [place] [address] Mar, [facility] [address] [id number] [place] [address] Mar, [facility] [address] [facility] [id number] [place] [address] Mar, [facility] [address] [id number] [place] [address] Mar, [facility] [address] [id number] [place] [address] Mar, [facility] [place] [facility] [address] [id number] [place] [address] Jan, [facility] [place] [facility] [address] [id number] [place] [address] Jan, [facility] [place] [facility] [address] [id number] [place] [address] Jan, [facility] [place] [facility] [address] [id number] [place] [address] Jan, [facility] [place] [facility] [address] [id number] [place] [address] Jan, [facility] [place] [facility] [address] [id number] [place] [address] Jan, [facility] [place] [facility] [address] [id number] [place] [address] Jan, [facility] [place] [facility] [address] [id number] [place] [address] Jan, [facility] [place] [facility] [address] [id number] [place] [address] Jan, [facility] [place] [facility] [address] [id number] [place] [address] Jan, [facility] [place] [facility] [address] [id number] [place] [address] Jan, [facility] [place] [facility] [address] [id number] [place] [address] Jan, [facility] [place] [facility] [address] [id number] [place] [address] Dec, [facility] [place] [facility] [address] [id number] [place] [address] Dec, [facility] [place] [facility] [address] [id number] [place] [address] Dec, [facility] [place] [facility] [address] [id number] [place] [address] Dec, [facility] [place] [facility] [address] [id number] [place] [address] Dec, [facility] [place] [facility] [address] [id number] [place] [address] Dec, [facility] [place] [facility] [address] [id number], [place] [address] Dec, [facility] [place] [facility] [address] [id number] [place] [address] Dec, [facility] [place] [facility] [address] [id number] [place] [address] Dec, [facility] [place] [facility] [address] [id number] [place] [address] Dec, [facility] [place] [facility] [address] [id number] [place] [address] Nov, [facility] [place] [facility] [address] [id number] [place] [address] Nov, [facility] [place] [facility] [address] [id number] [place] [address] Nov, [facility] [place] [facility] [address] [id number] [place] [address] Nov, [facility] [place] [facility] [address] [id number] [place] [address] Nov, [facility] [place] [facility] [address] [id number] [place] [address] Nov, [facility] [place] [facility] [address] [id number] [place] [address] Nov, [facility] [place] [facility] [address] [id number], [place] [address] Nov, [facility] [place] [facility] [address] [id number], [place] [address] Nov, [facility] [place] [facility] [address] [id number] [place] [address] Nov, [facility] [place] [facility] [address] [id number], [place] [address] Nov, [facility] [place] [facility] [address] [id number] [place] [address] Nov, [facility] [place] [facility] [address] [id number] [place] [address] 14 Nov, 2013 [facility] [place] [facility] [address] [id number] [place] [address] 14 Nov, 2013 [facility] [place] [facility] [address] [id number] [place] [address] 10 Nov, 2013 [facility] [place] [facility] [address] [id number] [place] [address] 10 Nov, 2013 [facility] [place] [facility] [address] [id number] [place] [address] 08 Nov, 2013 [facility] [place] [facility] [address] [id number] [place] [address] Nov, [facility] [place] [facility] [address] [id number] [place] [address] Nov, [facility] [place] [facility] [address] [id number] [place] [address] Nov, [facility] [place] [facility] [address] [id number] [place] [address] 26 Oct, 2013 [facility] [place] [facility] [address] [id number] [place] [address] 26 Oct, 2013 [facility] [place] [facility] [address] [id number] [place] [address] 19 Oct, 2013 [facility] [place] [facility] [address] [id number] [place] [address] 19 Oct, 2013 [facility] [place] [facility] [address] [id number] [place] [address] 12 Oct, 2013 [facility] [place] [facility] [address] [id number] [place] [address] 12 Oct, 2013 [facility] [place] [facility] [address] [id number] [place] [address] 10 Oct, 2013 [facility] [place] [facility] [address] [id number] [place] [address] Oct, [facility] [place] [facility] [address] [id number] [place] [address] Oct, [facility] [place] [facility] [address] [id number] [place] [address] Oct, [facility] [place] [facility] [address] [id number] [place] [address] Sep, [facility] [place] [facility] [address] [id number] [place] [address] Sep, [facility] [place] [facility] [address] [id number] [place] [address] Sep, [facility] [place] [facility] [address] [id number] [place] [address] Sep, [facility] [place] [facility] [address] [id number] [place] [address] Sep, [facility] [place] [facility] [address] [id number] [place] [address] Sep, [facility] [place] [facility] [address] [id number] [place] [address] Sep, [facility] [place] [facility] [address] [id number] [place] [address] Sep, [facility] [place] [facility] [address] [id number] [place] [address] Sep, [facility] [place] [facility] [address] [id number] [place] [address] Sep, [facility] [place] [facility] [address] [id number] [place] [address] Sep, [facility] [place] [facility] [address] [id number] [place] [address] Sep, [facility] [place] [facility] [address] [id number] [place] [address] Sep, [facility] [place] [facility] [address] [id number] [place] [address] Sep, [facility] [place] [facility] [address] [id number] [place] [address] Sep, [facility] [place] [facility] [address] [id number] [place] [address] Sep, [facility] [place] [facility] [address] [id number] [place] [address] Sep, [facility] [place] [facility] [address] [id number] [place] [address] Sep, [facility] [place] [facility] [address] [id number] [place] [address] Sep, [facility] [place] [facility] [address] [id number] [place] [address] Sep, [facility] [place] [facility] [address] [id number] [place] [address] Sep, [facility] [place] [facility] [address] [id number] [place] [address] Sep, [facility] [place] [facility] [address] [id number] [place] [address] Sep, [facility] [place] [facility] [address] [id number] [place] [address] Sep, [facility] [place] [facility] [address] [id number] [place] [address] Sep, [facility] [place] [facility] [address] [id number] [place] [address] Aug, [facility] [place] [facility] [address] [id number] [place] [address] Aug, [facility] [place] [facility] [address] [id number] [place] [address] Aug, [facility] [place] [facility] [address] [id number] [place] [address] Aug, [facility] [place] [facility] [address] [id number] [place] [address] Aug, 2013 [facility] [place] [facility] [address] [id number] [place] [address] Aug, [facility] [place] [facility] [address] [id number] [place] [address] Aug, 2013 [facility] [place] [facility] [address] [id number] [place] [address] Aug, 2013 [facility] [place] [facility] [address] [id number] [place] [address] Aug, [facility] [place] [facility] [address] [id number] [place] [address] Aug, [facility] [place] [facility] [address] [id number] [place] [address] Aug, [facility] [place] [facility] [address] [id number] [place] [address] Aug, [facility] [place] [facility] [address] [id number] [place] [address] Aug, [facility] [place] [facility] [address] [id number] [place] [address] Jul, [facility] [place] [facility] [address] [id number] [place] [address] Jul, [facility] [place] [facility] [address] [id number] [place] [address] Jul, [facility] [place] [facility] [address] [id number] [place] [address] Jul, [facility] [place] [facility] [address] [id number] [place] [address] Jul, [facility] [place] [facility] [address] [id number] [place] [address] Jul, [facility] [place] [facility] [address] [id number] [place] [address] Jul, [facility] [place] [facility] [address] [id number] [place] [address] June, [facility] [place] [facility] [address] [id number] [place] [address] June, [facility] [place] [facility] [address] [id number] [place] [address] June, [facility] [place] [facility] [address] [id number] [place] [address] June, [facility] [place] [facility] [address] [id number] [place] [address] May, [facility] [place] [facility] [address] [id number] [place] [address] May, [facility] [place] [facility] [address] [id number] [place] [address] May, [facility] [place] [facility] [address] [id number] [place] [address] May, [facility] [place] [facility] [address] [id number] [place] [address] May, [facility] [place] [facility] [address] [id number] [place] [address] May, [facility] [place] [facility] [address] [id number] [place] [address] May, [facility] [place] [facility] [address] [id number], [place] [address] May, [facility] [place] [facility] [address] [id number] [place] [address] May, [facility] [place] [facility] [address] [id number] [place] [address] May, [facility] [place] [facility] [address] [id number] [place] [address] Apr, [facility] [place] [facility] [address] [id number] [place] [address] Apr, [facility] [place] [facility] [address] [id number] [place] [address] Apr, [facility] [place] [facility] [address] [id number] [place] [address] Apr, [facility] [place] [facility] [address] [id number] [place] [address] Apr, [facility] [place] [facility] [address] [id number] [place] [address] Apr, [facility] [place] [facility] [address] [id number] [place] [address] Apr, [facility] [place] [facility] [address] [id number] [place] [address] Apr, [facility] [place] [facility] [address] [id number] [place] [address] Apr, [facility] [place] [facility] [address] [id number] [place] [address] Apr, [facility] [place] [facility] [address] [id number] [place] [address] Mar, [facility] [place] [facility] [address] [id number] [place] [address] Mar, [facility] [place] [facility] [address] [id number] [place] [address] Mar, [facility] [place] [facility] [address] [id number] [place] [address] Mar, [facility] [place] [facility] [address] [id number] [place] [address] Mar, [facility] [place] [facility] [address] [id number] [place] [address] Mar, [facility] [place] [facility] [address] [id number] [place] [address] Jan, [facility] [address] [id number] [place] [address] Jan, [facility] [place] [facility] [address] [id number] [place] [address] Jan, [facility] [place] [facility] [address] [facility] [id number] [place] [address] Jan, [facility] [place] [facility] [address] [id number], [place] [address] Jan, [facility] [address] [id number] [place] [address] Jan, [facility] [place] [facility] [address] [id number] [place] [address] Jan, [facility] [place] [facility] [address] [facility] [id number], [place] [address] Jan, [facility] [place] [facility] [address] [id number], [place] [address] Jan, [facility] [place] [facility] [address] [id number], [place] [address] Dec, [facility] [place] [facility] [address] [id number], [place] [address] Dec, [facility] [place] [facility] [address] [id number], [place] [address] Dec, [facility] [place] [facility] [address] [id number], [place] [address] Dec, [facility] [place] [facility] [address] [id number], [place] [address] Dec, [facility] [place] [facility] [address] [id number], [place] [address] Dec, [facility] [place] [facility] [address] [facility] [id number], [place] [address] Dec, [facility] [place] [facility] [address] [id number] [place] [address] Dec, [facility] [place] [facility] [address] [id number] [place] [address] Dec, [facility] [place] [facility] [address] [id number] [place] [address] Dec, [facility] [place] [facility] [address] [id number] [place] [address] Dec, [facility] [place] [facility] [address] [id number] [place] [address] Nov, [facility] [place] [facility] [address] [id number] [place] [address] Nov, [facility] [place] [facility] [address] [id number] [place] [address] Nov, [facility] [place] [facility] [address] [id number] [place] [address] Nov, [facility] [place] [facility] [address] [id number] [place] [address] Nov, [facility] [place] [facility] [address] [id number] [place] [address] Oct, [facility] [place] [facility] [address] [id number] [place] [address] Oct, [facility] [place] [facility] [address] [id number] [place] [address] Sep, [facility] [place] [facility] [address] [id number] [place] [address] Aug, [facility] [place] [facility] [address] [id number] [place] [address] Aug, [facility] [place] [facility] [address] [id number] [place] [address] Aug, [facility] [place] [facility] [address] [id number] [place] [address] Aug, [facility] [place] [facility] [address] [id number] [place] [address] Jul, [facility] [address] [id number] [place] [address] Jul, [facility] [address] [id number] [place] [address] June, [facility] [address] [id number] [place] [address] June, [facility] [address] [id number] [place] [address] June, [facility] [address] [id number] [place] [address] May, [facility] [address] [id number] [place] [address] May, [facility] [address] [id number] [place] [address] May, [facility] [address] [id number] [place] [address] Apr, [facility] [address] [id number] [place] [address] 18 Apr, 2012 [facility] [address] [id number] [place] [address] 15 Apr, 2012 [facility] [address] [id number], [place] [address] 14 Apr, 2012 [facility] [address] [id number] [place] [address] Apr, [facility] [place] [facility] [address] [id number] [place] [address] Apr, [facility] [address] [id number] [place] [address] Apr, [facility] [address] [id number], [place] [address] Apr, [facility] [address] [id number] [place] [address] Apr, [facility] [address] [id number] [place] [address] 20 Apr, 2012 [facility] [address] [id number] [place] [address] 19 Apr, 2012 [facility] [address] [id number] [place] [address] Apr, [facility] [address] [id number] [place] [address] 07 Apr, 2012 [facility] [address] [id number] [place] [address] Mar, [facility] [address] [id number] [place] [address] Mar, [facility] [address] [id number] [place] [address] 16 Mar, 2012 [facility] [address] [id number] [place] [address] Mar, [facility] [address] [id number] [place] [address] Mar, [facility] [address] [id number] [place] [address] Jan, [facility] [address] [id number] [place] [address] Jan, [facility] [place] [facility] [address] [id number] [place] [address] Jan, [facility] [place] [facility] [address] [id number] [place] [address] Jan, [facility] [address] [id number] [place] [address] 14 Jan, 2012 [facility] [place] [facility] [address] [id number] [place] [address] 13 Jan, 2012 [facility] [place] [facility] [address] [id number] [place] [address] 13 Jan, 2012 [facility] [place] [facility] [address] [id number] [place] [address] 11 Jan, 2012 [facility] [place] [facility] [address] [id number] [place] [address] 06 Jan, 2012 [facility] [address] [id number] [place] [address] 06 Jan, 2012 [facility] [place] [facility] [address] [id number] [place] [address] Jan, [facility] [address] [id number] [place] [address] Jan, [facility] [address] [id number] [place] [address] Jan, [facility] [place] [facility] [address] [id number] [place] [address] Jan, [facility] [place] [facility] [address] [id number] [place] [address] Dec, [facility] [place] [facility] [address] [id number] [place] [address] Dec, [facility] [place] [facility] [address] [id number] [address] Dec, [facility] [place] [facility] [address] [id number] [place] [address] Dec, [facility] [place] [facility] [address] [id number] [place] [address] 15 Jan, 2012 [facility] [place] [facility] [address] [id number] [place] [address] 15 Jan, 2012 [facility] [place] [facility] [address] [id number] [place] [address] 14 Jan, 2012 [facility] [place] [facility] [address] [id number] [place] [address] 14 Jan, 2012 [facility] [place] [facility] [address] [id number] [place] [address] 14 Jan, 2012 [facility] [place] [facility] [address] [id number] [place] [address] 14 Jan, 2012 [facility] [place] [facility] [address] [id number] [place] [address] 07 Jan, 2012 [facility] [place] [facility] [address] [id number] [place] [address] 07 Jan, 2012 [facility] [place] [facility] [address] [id number] [place] [address] 16 Dec, 2011 [facility] [place] [facility] [address] [id number] [place] [address] 16 Dec, 2011 [facility] [place] [facility] [address] [id number] [place] [address] 13 Nov, 2011 [facility] [place] [facility] [address] [id number] [place] [address] 13 Nov, 2011 [facility] [place] [facility] [address] [id number] [place] [address] 13 Nov, 2011 [facility] [place] [facility] [address] [id number] [place] [address] 12 Nov, 2011 [facility] [place] [facility] [address] [id number] [place] [address] 30 Oct, 2011 [facility] [place] [facility] [address] [id number] [place] [address] Sep, [facility] [place] [facility] [address] [id number] [place] [address] 23 Aug, 2011 [facility] [place] [facility] [address] [id number] [place] [address] 13 Aug, 2011 [facility] [place] [facility] [address] [id number] [place] [address] Aug, [facility] [address] [id number] [place] [address] Aug, [facility] [address] [id number] [place] [address] June, [facility] [address] [id number] [place] [address] June, [facility] [address] [id number] [place] [address] May, [facility] [address] [id number] [place] [address] Apr, [facility] [address] [id number] [place] [address] Apr, [facility] [address] [id number] [place] [address] Apr, [facility] [address] [id number] [place] [address] Apr, [facility] [address] [id number] [place] [address] Apr, [facility] [address] [id number] [place] [address] Apr, [facility] [address] [id number] [place] [address] Mar, [facility] [address] [id number] [place] [address] Mar, [facility] [place] [facility] [address] [id number] [place] [address] Mar, [facility] [address] [id number] [place] [address] Jan, [facility] [address] [id number] [place] [address] Jan, [facility] [place] [facility] [address] [id number] [place] [address] Jan, [facility] [place] [facility] [address] [id number] [place] [address] Jan, [facility] [place] [facility] [address] [id number] [place] [address] Jan, [facility] [place] [facility] [address] [id number] [place] [address] Jan, [facility] [place] [facility] [address] [id number] [place] [address] Jan, [facility] [place] [facility] [address] [id number] [place] [address] Dec, [facility] [place] [facility] [address] [id number] [place] [address] Dec, [facility] [place] [facility] [address] [id number] [place] [address] Nov, [facility] [place] [facility] [address] [id number] [place] [address] Nov, [facility] [place] [facility] [address] [id number] [place] [address] Nov, [facility] [place] [facility] [address] [id number], [place] [address] Nov, [facility] [place] [facility] [address] [id number], [place] [address] Oct, [facility] [place] [facility] [address] [id number] [place] [address] Sep, [facility] [place] [facility] [address] [id number], [place] [address] Mar, [facility] [place] [facility] [address] [id number] [place] [address] Jan, [facility] [place] [facility] [address] [id number] [place] [address] 09 Dec, 2009 [facility] [address] [id number] [place] [address] 06 Dec, 2009 [facility] [place] [facility] [address] [id number] [place] [address] 04 Dec, 2009 [facility] [place] [facility] [address] [id number] [place] [address] Dec, [facility] [place] [facility] [address] [id number] [place] [address] 26 Nov, 2009 [facility] [place] [facility] [address] [id number] [place] [address] 15 Nov, 2009 [facility] [place] [facility] [address] [id number] [place] [address] 14 Nov, 2009 [facility] [place] [facility] [address] [id number] [place] [address] 14 Nov, 2009 [facility] [place] [facility] [address] [id number] [place] [address] 13 Oct, 2009 [facility] [place] [facility] [address] [id number] [place] [address] 17 Jul, 2009 [facility] [place] [facility] [address] [facility] [id number] [place] [address] June, [facility] [place] [facility] [address] [id number] [place] [address] 14 Jun, 2009 [facility] [place] [facility] [address] [id number], [place] [address] Apr, [facility] [place] [facility] [address] [id number] [place] [address] Mar, [facility] [place] [facility] [address] [id number] [place] [address] Jan, [facility] [place] [facility] [address] [id number], [place] [address] Jan, [facility] [address] [id number], [place] [address] Dec, [facility] [id number], [place] [address] Dec, [facility] [id number], [place] [address] Dec, [facility] [id number] [place] [address] Dec, [facility] [id number], [place] [address] Nov, [facility] [id number] [place] [address] Jul, [facility] [id number], [place] [address] June, IMMUNIZATIONS No Known Immunizations SOCIAL HISTORY Never Assessed REASON FOR VISIT [place] [place] VITAL SIGNS MEDICATIONS Unknown [...]
--- OUTSIDE RECORDS SUMMARY | 2018-08-23 17:09 | XMS REPORT ---
Author Author Migration, Doctor Organization [facility] Address Unknown Phone Unavailable Care Team Providers Care Client Advocate Name Role Phone Migration, Doctor Unavailable Unavailable PROBLEMS Type Condition ICD9-CM Code TZL81-OL Code Onset Dates Condition Status SNOMED Code Problem Pulmonary asbestosis J61 Active 35671312 Problem Renal cyst, left N28.1 Active 75345812 Problem Left ventricular diastolic dysfunction I51.9 Active 922798056 Problem Urge incontinence N39.41 Active 808499555 Problem Anxiety F41.9 Active 36243385 Problem Low back pain M54.5 Active 653109851 Problem Age-related osteoporosis without current pathological fracture M81.0 Active 39343495 Problem History of diverticulitis Z87.19 Active 628375273754401 Problem Allergic rhinitis, unspecified allergic rhinitis type J30.9 Active 70293380 Problem Nephrolithiasis N20.0 Active 82629268 Problem Nocturnal hypoxia G47.34 Active 637878776 Problem Psoriasis L40.9 Active 6666375 Problem Essential hypertension I10 Active 11982488 Problem Chronic gout, unspecified cause, unspecified site M1A.9XX0 Active 66734811 Problem Esophageal stricture K22.2 Active 34548825 Problem Obstructive sleep apnea syndrome G47.33 Active 50619132 Problem History of weight loss surgery Z98.84 Active 057795259 Problem 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 Active 26597339 Problem Chronic prescription opiate use Z79.899 Active 193682128 Problem Moderate episode of recurrent major depressive disorder F33.1 Active 275412308 Problem Chronic obstructive pulmonary disease, unspecified COPD type J44.9 Active 89982147 Problem Primary insomnia F51.01 Active 785504473 Problem Neuropathy G62.9 Active 033484013 Problem Cervicalgia M54.2 Active 0055458310149 Problem Hyperlipidemia, unspecified E78.5 Active 10838183 Problem Benign prostatic hyperplasia, presence of lower urinary tract symptoms unspecified, unspecified morphology N40.0 Active 308105480 Problem Acute right-sided low back pain with right-sided sciatica M54.41 Active 112649816 Problem Erectile dysfunction due to diseases classified elsewhere N52.1 Active 164199515 Problem Hammertoe of left foot M20.42 Active 403678189 ALLERGIES No Information ENCOUNTERS Encounter Location Date Diagnosis [facility] [id number] [place] [address] May, [facility] [id number] [place] [address] May, [facility] [address] [address] May, [facility] [address] [address] Apr, Moderate episode of recurrent major depressive disorder F33.1 ; Morbid obesity E66.01 ; Hyperlipidemia, unspecified E78.5 ; Primary insomnia F51.01 and Low back pain M54.5 [facility] [address] [address] Apr, Primary insomnia F51.01 [facility] [address] [address] Apr, Anxiety F41.9 [facility] [id number] [place] [address] 15 Apr, 2018 Low back pain M54.5 [facility] [id number] [place] [address] Apr, Anxiety F41.9 [facility] [id number] [place] [address] Mar, Moderate episode of recurrent major depressive disorder F33.1 ; BMI 50.0-59.9, adult Z68.43 ; Anxiety F41.9 and Chronic prescription opiate use Z79.899 [facility] [id number] [place] [address] Mar, Onychomycosis B35.1 ; Neuropathy G62.9 and Impaired circulation I99.9 [facility] [id number] [place] [address] Mar, Low back pain M54.5 [facility] [address] [address] Mar, Anxiety F41.9 [facility] [id number] [place] [address] Jan, BMI 50.0-59.9, adult Z68.43 ; Chronic obstructive pulmonary disease, unspecified COPD type J44.9 ; Low back pain M54.5 and Moderate episode of recurrent major depressive disorder F33.1 [facility] [address] [address] Jan, [facility] [address] [address] Jan, [facility] [address] [address] Dec, Anxiety F41.9 [facility] [id number] [place] [address] Dec, [facility] [address] [address] Dec, Anxiety F41.9 [facility] [id number] [place] [address] Dec, [facility] [id number] [place] [address] Dec, Encounter for immunization Z23 [facility] [id number] [place] [address] Dec, [facility] [address] [address] Dec, Hammertoe of left foot M20.42 ; Edema of left foot R60.0 and Onychomycosis B35.1 [facility] [address] [place] [address] Nov, BMI 50.0-59.9, adult Z68.43 [facility] [address] [address] Nov, [facility] [id number] [place] [address] Nov, [facility] [address] [address] Nov, Anxiety F41.9 [facility] [address] [address] Oct, [facility] [address] [address] Oct, [facility] [address] [address] Oct, BMI 45.0-49.9, adult Z68.42 ; Essential hypertension I10 ; Hyperlipidemia, unspecified E78.5 ; Anxiety F41.9 ; Obstructive sleep apnea syndrome G47.33 ; Moderate episode of recurrent major depressive disorder F33.1 ; Left ventricular diastolic dysfunction I51.9 ; Acute pain of right shoulder M25.511 ; Pain of left foot M79.672 and Pain in right foot M79.671 [facility] [id number] [place] [address] Oct, Anxiety F41.9 [facility] [id number] [place] [address] Sep, Left foot pain M79.672 [facility] [id number] [place] [address] Sep, [facility] [id number] [place] [address] Sep, Anxiety F41.9 [facility] [id number] [place] [address] Sep, [facility] [address] [address] Aug, [facility] [id number] [place] [address] Aug, [facility] [id number] [place] [address] Aug, Anxiety F41.9 [facility] [id number] [place] [address] Aug, [facility] [id number] [place] [address] Jul, [facility] [id number] [place] [address] Jul, Anxiety F41.9 [facility] [id number] [place] [address] June, Anxiety F41.9 [facility] [id number] [place] [address] June, [facility] [id number] [place] [address] June, Low back pain M54.5 ; Chronic prescription opiate use Z79.899 ; Candidal intertrigo B37.2 ; Urge incontinence N39.41 ; Essential hypertension I10 ; Moderate episode of recurrent major depressive disorder F33.1 ; Age-related osteoporosis without current pathological fracture M81.0 and BMI 45.0-49.9, adult Z68.42 [facility] [address], [place] [address] June, [facility] [id number] [place] [address] May, Anxiety F41.9 [facility] [id number] [place] [address] May, [facility] [id number] [place] [address] May, [facility] [id number] [place] [address] Apr, Anxiety F41.9 [facility] [id number] [place] [address] Apr, [facility] [address] [address] Apr, Low back pain M54.5 [facility] [address] [address] Apr, [facility] [address] [address] Apr, [facility] [id number] [place] [address] Apr, Anxiety F41.9 [facility] [id number] [place] [address] Apr, Right groin pain R10.31 [facility] [id number] [place] [address] Mar, [facility] [id number] [place] [address] Mar, [facility] [id number] [place] [address] Mar, Anxiety F41.9 [facility] [id number] [place] [address] Mar, Low back pain M54.5 [facility] [address] [address] Mar, Right groin pain R10.31 ; Low back pain M54.5 and BMI 45.0-49.9, adult Z68.42 [facility] [address] [address] Mar, [facility] [id number] [place] [address] Mar, [facility] [id number] [place] [address] Mar, [facility] [id number] [place] [address] Mar, [facility] [id number] [place] [address] Mar, Cough R05 ; Pneumonia of right lower lobe due to infectious organism J18.1 and Abnormal chest x-ray R93.8 [facility] [id number] [place] [address] Mar, [facility] [id number] [place] [address] Mar, [facility] [id number] [place] [address] Jan, Anxiety F41.9 [facility] [id number] [place] [address] Jan, [facility] [id number] [place] [address] Jan, Moderate episode of recurrent major depressive disorder F33.1 [facility] [id number] [place] [address] Jan, Subacromial bursitis of right shoulder joint M75.51 ; Shortness of breath on exertion R06.02 and BMI 45.0-49.9, adult Z68.42 [facility] [id number] [place] [address] Dec, Anxiety F41.9 [facility] [id number] [place] [address] Dec, [facility] [id number] [place] [address] Dec, Low back pain M54.5 [facility] [id number] [place] [address] Oct, Low back pain M54.5 [facility] [id number] [place] [address] Sep, [facility] [id number] [place] [address] Sep, Erectile dysfunction due to diseases classified elsewhere N52.1 [facility] [id number] [place] [address] Sep, Erectile dysfunction due to diseases classified elsewhere N52.1 [facility] [id number] [place] [address] Sep, [facility] [id number] [place] [address] Sep, Erectile dysfunction due to diseases classified elsewhere N52.1 [facility] [id number] [place] [address] Sep, Low back pain M54.5 and Anxiety F41.9 [facility] [id number] [place] [address] Aug, Acute allergic rhinitis J30.9 [facility] [id number] [place] [address] Aug, [facility] [id number] [place] [address] Aug, Anxiety F41.9 [facility] [id number] [place] [address] 15 Jul, 2016 Low back pain M54.5 ; Chronic prescription opiate use Z79.899 and Essential hypertension I10 [facility] [id number] [place] [address] Jul, Anxiety F41.9 and Low back pain M54.5 [facility] [address], [place] [address] June, [facility] [id number] [place] [address] June, Anxiety F41.9 [facility] [id number] [place] [address] May, Low back pain M54.5 [facility] [id number] [place] [address] May, [facility] [id number] [place] [address] May, Anxiety F41.9 [facility] [id number] [place] [address] Apr, [facility] [id number] [place] [address] Apr, Low back pain M54.5 [facility] [id number] [place] [address] Apr, Moderate episode of recurrent major depressive disorder F33.1 [facility] [id number] [place] [address] Apr, Anxiety F41.9 [facility] [id number] [place] [address] Apr, Low back pain M54.5 [facility] [id number] [place] [address] 15 Apr, 2016 Elevated alkaline phosphatase level R74.8 [facility] [id number] [place] [address] 10 Apr, 2016 Alkaline phosphatase elevation R74.8 [facility] [id number] [place] [address] 06 Apr, 2016 Anxiety F41.9 [facility] [id number] [place] [address] 03 Apr, 2016 Low back pain M54.5 [facility] [id number] [place] [address] 03 Apr, 2016 History of weight loss surgery Z98.84 ; Encounter for hepatitis C screening test for low risk patient Z11.59 ; History of herpes genitalis Z86.19 ; Essential hypertension I10 ; Hyperlipidemia, unspecified E78.5 ; Exposure to STD Z20.2 and Benign prostatic hyperplasia, presence of lower urinary tract symptoms unspecified, unspecified morphology N40.0 [facility] [id number] [place] [address] 02 Apr, 2016 [facility] [id number] [place] [address] Mar, [facility] [id number] [place] [address] Mar, [facility] [id number] [place] [address] Mar, [facility] [id number] [place] [address] Mar, Acute right-sided low back pain with right-sided sciatica M54.41 [facility] [id number] [place] [address] Mar, Low back pain M54.5 [facility] [id number] [place] [address] Mar, Muscle strain of chest wall, initial encounter S29.011A ; Muscle strain of right thigh, initial encounter S76.911A and Acute non-recurrent maxillary sinusitis J01.00 [facility] [id number] [place] [address] Mar, Benign prostatic hyperplasia, presence of lower urinary tract symptoms unspecified, unspecified morphology N40.0 [facility] [id number] [place] [address] Jan, Low back pain M54.5 [facility] [id number] [place] [address] Jan, Low back pain M54.5 ; Essential hypertension I10 ; Hyperlipidemia, unspecified E78.5 ; Anxiety F41.9 ; Moderate episode of recurrent major depressive disorder F33.1 ; Primary insomnia F51.01 ; Exposure to STD Z20.2 ; Encounter for hepatitis C screening test for low risk patient Z11.59 and History of herpes genitalis Z86.19 [facility] [address] [address] 17 Jan, 2016 [facility] [address] [address] 20 Dec, 2015 [place] [address] [address] 14 Dec, 2015 Anxiety F41.9 ; Cervicalgia M54.2 ; Moderate episode of recurrent major depressive disorder F33.1 and Encounter for immunization Z23 [facility] [id number] [place] [address] Oct, [facility] [address] [address] 22 Nov, 2015 [place] [id number] [place] [address] 16 Nov, 2015 [facility] [id number] [place] [address] Oct, [facility] [id number] [place] [address] Sep, [facility] [address] [address] Aug, Low back pain M54.5 ; Anxiety F41.9 ; Primary insomnia F51.01 and Chronic prescription opiate use Z79.899 [facility] [address] [address] Jul, [facility] [address] [facility] [id number] [place] [address] Jul, [facility] [address] [id number] [place] [address] Jul, [facility] [address] [facility] [id number] [place] [address] Jul, [facility] [address] [facility] [id number] [place] [address] Jul, [facility] [address] [id number] [place] [address] June, [facility] [address] [facility] [id number] [place] [address] June, [facility] [address] [facility] [id number] [place] [address] June, [facility] [address] [facility] [id number] [address] June, [facility] [id number], [place] [address] May, Preoperative cardiovascular examination Z01.810 [facility] [id number], [place] [address] May, [facility] [address], [place] [address] Apr, [facility] [address] [facility] [id number], [place] [address] Apr, Osteoarthritis of right knee M17.9 [facility] [id number] [place] [address] 30 May, 2015 [facility] [address] [facility] [id number] [place] [address] 16 May, 2015 [facility] [id number], [place] [address] Apr, [facility] [id number] [place] [address] Apr, [facility] [id number] [place] [address] Apr, History of excessive cerumen Z78.9 ; Obstructive sleep apnea syndrome G47.33 ; History of diverticulitis Z87.19 and Nephrolithiasis N20.0 [facility] [id number] [place] [address] 29 Apr, 2015 [facility] [id number] [place] [address] Apr, Abdominal pain R10.9 [facility] [id number] [place] [address] 10 Apr, 2015 [place] [address] [address] 04 Apr, 2015 Osteoarthritis of right knee M17.9 [facility] [id number] [place] [address] Mar, [facility] [id number] [place] [address] 15 Mar, 2015 [place] [id number] [place] [address] Mar, [facility] [id number] [place] [address] Mar, [facility] [id number] [place] [address] 13 Mar, 2015 Pyelonephritis N12 ; Left-sided thoracic back pain M54.6 ; Hematuria, unspecified R31.9 and Kidney stone N20.0 [facility] [id number] [place] [address] 12 Mar, 2015 History of weight loss surgery Z98.84 [place] [address] [place] [address] 07 Mar, 2016 History of weight loss surgery Z98.84 and Hyperlipidemia, unspecified E78.5 [facility] [id number] [place] [address] Mar, 2016 Low back pain M54.5 ; Chronic prescription opiate use Z79.899 ; Hyperlipidemia, unspecified E78.5 ; Spasm of back muscles M62.830 and History of weight loss surgery Z98.84 [facility] [id number] [place] [address] Jan, [facility] [id number] [place] [phone] Jan, [facility] [id number] [place] [phone] Jan, [facility] [id number] [place] [phone] Dec, [facility] [id number] [place] [id number] Dec, [facility] [id number] [place] [address] Dec, [facility] [id number] [place] [id number] Nov, [facility] [id number] [place] [address] Nov, Obstructive sleep apnea syndrome G47.33 and Pharyngoesophageal dysphagia R13.14 [facility] [id number] [address] Nov, [facility] [id number] [place] [phone] Nov, [facility] [id number], [place] [address] Nov, [facility] [id number] [place] [id number] Oct, 2014 Dental examination V72.2 [facility] [id number] [place] [phone] Oct, [facility] [id number] [place] [phone] Oct, [facility] [id number] [place] [phone] Oct, [facility] [address] [address] Oct, [facility] [address] [address] Oct, BPH (benign prostatic hyperplasia) 600.00 and Urinary frequency 788.41 [facility] [id number] [place] [phone] Oct, [facility] [id number] [place] [phone] Oct, [facility] [id number] [place] [address] Oct, [facility] [id number] [place] [address] Sep, Cerumen impaction 380.4 ; Cerumen debris on tympanic membrane 380.4 ; Psoriasis 696.1 and MICKY (secretory otitis media) 381.4 [facility] [id number] [place] [id number] Sep, Dental examination V72.2 [facility] [id number] [place] [address] Sep, Fatigue 780.79 ; Irritable bowel syndrome 564.1 ; Overweight 278.02 ; Poor sleep V69.4 ; Shaking spells 781.0 and Broken tooth 873.63 [facility] [id number] [place] [address] Sep, [facility] [address] [id number] [place] [address] Sep, [facility] [address] [id number] [place] [address] Aug, [facility] [address] [facility] [id number] [place] [address] Jul, [facility] [address] [facility] [id number] [place] [address] Jul, [facility] [address] [facility] [id number] [place] [address] Jul, [facility] [id number] [place] [address] Jul, [facility] [id number] [place] [address] June, Arthritis of knee, right 716.96 [facility] [id number] [place] [address] June, [facility] [id number] [place] [address] June, Elevated blood pressure reading without diagnosis of hypertension 796.2 [facility] [id number] [place] [address] June, [facility] [id number] [place] [address] June, [facility] [address] [id number] [place] [address] June, [facility] [id number] [place] [address] June, [facility] [address] [id number] [place] [address] May, [facility] [id number] [place] [address] 13 May, 2014 [facility] [place] [facility] [address] [id number] [place] [address] 30 Apr, 2014 [facility] [place] [facility] [address] [id number] [place] [address] 30 Apr, 2014 [facility] [place] [facility] [address] [id number] [place] [address] Apr, [facility] [place] [facility] [address] [id number] [place] [address] Apr, [facility] [place] [facility] [address] [id number] [place] [address] Apr, [facility] [place] [facility] [address] [id number] [place] [address] Apr, [facility] [place] [facility] [address] [id number] [place] [address] Apr, [facility] [place] [facility] [address] [id number] [place] [address] Apr, [facility] [place] [facility] [address] [id number] [place] [address] Apr, [facility] [place] [facility] [address] [id number] [place] [address] Apr, [facility] [place] [facility] [address] [id number] [place] [address] Apr, [facility] [place] [facility] [address] [id number] [place] [address] Apr, [facility] [place] [facility] [address] [id number] [place] [address] Apr, [facility] [place] [facility] [address] [id number] [place] [address] Apr, [facility] [place] [facility] [address] [id number] [place] [address] Apr, [facility] [place] [facility] [address] [id number] [place] [address] 23 Apr, 2014 [facility] [place] [facility] [address] [id number] [place] [address] Apr, 2014 [facility] [place] [facility] [address] [id number] [place] [address] 20 Apr, 2014 [facility] [place] [facility] [address] [facility] [id number] [place] [address] 18 Apr, 2014 [facility] [place] [facility] [address] [id number] [place] [address] 18 Apr, 2014 [facility] [place] [facility] [address] [facility] [id number] [place] [address] 13 Apr, 2014 [facility] [place] [facility] [address] [facility] [id number] [place] [address] 13 Apr, 2014 [facility] [place] [facility] [address] [facility] [id number] [place] [address] 13 Apr, 2014 [facility] [place] [facility] [address] [facility] [id number] [place] [address] 13 Apr, 2014 [facility] [place] [facility] [address] [facility] [id number] [place] [address] 12 Apr, 2014 [facility] [place] [facility] [address] [facility] [id number] [place] [address] Apr, 2014 [facility] [place] [facility] [address] [facility] [id number], [place] [address] Apr, 2014 [facility] [place] [facility] [address] [facility] [id number] [place] [address] Apr, 2014 [facility] [place] [facility] [address] [facility] [id number] [place] [address] Apr, 2014 [facility] [place] [facility] [address] [facility] [id number] [place] [address] Apr, 2014 [facility] [place] [facility] [address] [facility] [id number] [place] [address] Apr, [facility] [address] [id number] [place] [address] Apr, [facility] [address] [id number] [place] [address] Apr, [facility] [address] [id number] [place] [address] Mar, [facility] [address] [id number] [place] [address] Mar, [facility] [address] [id number] [place] [address] Mar, [facility] [address] [id number] [place] [address] Mar, [facility] [address] [id number] [place] [address] Mar, [facility] [address] [id number] [place] [address] Mar, [facility] [address] [id number] [place] [address] Mar, [facility] [address] [facility] [id number] [place] [address] Mar, [facility] [address] [id number] [place] [address] Mar, [facility] [address] [id number] [place] [address] Mar, [facility] [place] [facility] [address] [id number] [place] [address] Jan, [facility] [place] [facility] [address] [id number] [place] [address] Jan, [facility] [place] [facility] [address] [id number] [place] [address] Jan, [facility] [place] [facility] [address] [id number] [place] [address] Jan, [facility] [place] [facility] [address] [id number] [place] [address] Jan, [facility] [place] [facility] [address] [id number] [place] [address] Jan, [facility] [place] [facility] [address] [id number] [place] [address] Jan, [facility] [place] [facility] [address] [id number] [place] [address] Jan, [facility] [place] [facility] [address] [id number] [place] [address] Jan, [facility] [place] [facility] [address] [id number] [place] [address] Jan, [facility] [place] [facility] [address] [id number] [place] [address] Jan, [facility] [place] [facility] [address] [id number] [place] [address] Jan, [facility] [place] [facility] [address] [id number] [place] [address] Dec, [facility] [place] [facility] [address] [id number] [place] [address] Dec, [facility] [place] [facility] [address] [id number] [place] [address] Dec, [facility] [place] [facility] [address] [id number] [place] [address] Dec, [facility] [place] [facility] [address] [id number] [place] [address] Dec, [facility] [place] [facility] [address] [id number] [place] [address] Dec, [facility] [place] [facility] [address] [id number], [place] [address] Dec, [facility] [place] [facility] [address] [id number] [place] [address] Dec, [facility] [place] [facility] [address] [id number] [place] [address] Dec, [facility] [place] [facility] [address] [id number] [place] [address] Dec, [facility] [place] [facility] [address] [id number] [place] [address] Nov, [facility] [place] [facility] [address] [id number] [place] [address] Nov, [facility] [place] [facility] [address] [id number] [place] [address] Nov, [facility] [place] [facility] [address] [id number] [place] [address] Nov, [facility] [place] [facility] [address] [id number] [place] [address] Nov, [facility] [place] [facility] [address] [id number] [place] [address] Nov, [facility] [place] [facility] [address] [id number] [place] [address] Nov, [facility] [place] [facility] [address] [id number], [place] [address] Nov, [facility] [place] [facility] [address] [id number], [place] [address] Nov, [facility] [place] [facility] [address] [id number] [place] [address] Nov, [facility] [place] [facility] [address] [id number], [place] [address] Nov, [facility] [place] [facility] [address] [id number] [place] [address] Nov, [facility] [place] [facility] [address] [id number] [place] [address] 14 Nov, 2013 [facility] [place] [facility] [address] [id number] [place] [address] 14 Nov, 2013 [facility] [place] [facility] [address] [id number] [place] [address] 10 Nov, 2013 [facility] [place] [facility] [address] [id number] [place] [address] 10 Nov, 2013 [facility] [place] [facility] [address] [id number] [place] [address] 08 Nov, 2013 [facility] [place] [facility] [address] [id number] [place] [address] Nov, [facility] [place] [facility] [address] [id number] [place] [address] Nov, [facility] [place] [facility] [address] [id number] [place] [address] Nov, [facility] [place] [facility] [address] [id number] [place] [address] 26 Oct, 2013 [facility] [place] [facility] [address] [id number] [place] [address] 26 Oct, 2013 [facility] [place] [facility] [address] [id number] [place] [address] 19 Oct, 2013 [facility] [place] [facility] [address] [id number] [place] [address] 19 Oct, 2013 [facility] [place] [facility] [address] [id number] [place] [address] 12 Oct, 2013 [facility] [place] [facility] [address] [id number] [place] [address] 12 Oct, 2013 [facility] [place] [facility] [address] [id number] [place] [address] 10 Oct, 2013 [facility] [place] [facility] [address] [id number] [place] [address] Oct, [facility] [place] [facility] [address] [id number] [place] [address] Oct, [facility] [place] [facility] [address] [id number] [place] [address] Oct, [facility] [place] [facility] [address] [id number] [place] [address] Sep, [facility] [place] [facility] [address] [id number] [place] [address] Sep, [facility] [place] [facility] [address] [id number] [place] [address] Sep, [facility] [place] [facility] [address] [id number] [place] [address] Sep, [facility] [place] [facility] [address] [id number] [place] [address] Sep, [facility] [place] [facility] [address] [id number] [place] [address] Sep, [facility] [place] [facility] [address] [id number] [place] [address] Sep, [facility] [place] [facility] [address] [id number] [place] [address] Sep, [facility] [place] [facility] [address] [id number] [place] [address] Sep, [facility] [place] [facility] [address] [id number] [place] [address] Sep, [facility] [place] [facility] [address] [id number] [place] [address] Sep, [facility] [place] [facility] [address] [id number] [place] [address] Sep, [facility] [place] [facility] [address] [id number] [place] [address] Sep, [facility] [place] [facility] [address] [id number] [place] [address] Sep, [facility] [place] [facility] [address] [id number] [place] [address] Sep, [facility] [place] [facility] [address] [id number] [place] [address] Sep, [facility] [place] [facility] [address] [id number] [place] [address] Sep, [facility] [place] [facility] [address] [id number] [place] [address] Sep, [facility] [place] [facility] [address] [id number] [place] [address] Sep, [facility] [place] [facility] [address] [id number] [place] [address] Sep, [facility] [place] [facility] [address] [id number] [place] [address] Sep, [facility] [place] [facility] [address] [id number] [place] [address] Sep, [facility] [place] [facility] [address] [id number] [place] [address] Sep, [facility] [place] [facility] [address] [id number] [place] [address] Sep, [facility] [place] [facility] [address] [id number] [place] [address] Sep, [facility] [place] [facility] [address] [id number] [place] [address] Aug, [facility] [place] [facility] [address] [id number] [place] [address] Aug, [facility] [place] [facility] [address] [id number] [place] [address] Aug, [facility] [place] [facility] [address] [id number] [place] [address] Aug, [facility] [place] [facility] [address] [id number] [place] [address] Aug, 2013 [facility] [place] [facility] [address] [id number] [place] [address] Aug, [facility] [place] [facility] [address] [id number] [place] [address] Aug, 2013 [facility] [place] [facility] [address] [id number] [place] [address] Aug, 2013 [facility] [place] [facility] [address] [id number] [place] [address] Aug, [facility] [place] [facility] [address] [id number] [facility] [place] [address] Aug, [facility] [place] [facility] [address] [id number] [place] [address] Aug, [facility] [place] [facility] [address] [id number] [place] [address] Aug, [facility] [place] [facility] [address] [id number] [place] [address] Aug, [facility] [place] [facility] [address] [id number] [place] [address] Jul, [facility] [place] [facility] [address] [id number] [place] [address] Jul, [facility] [place] [facility] [address] [id number] [place] [address] Jul, [facility] [place] [facility] [address] [id number] [place] [address] Jul, [facility] [place] [facility] [address] [id number] [place] [address] Jul, [facility] [place] [facility] [address] [id number] [place] [address] Jul, [facility] [place] [facility] [address] [id number] [place] [address] Jul, [facility] [place] [facility] [address] [id number] [place] [address] June, [facility] [place] [facility] [address] [id number] [place] [address] June, [facility] [place] [facility] [address] [id number] [place] [address] June, [facility] [place] [facility] [address] [id number] [place] [address] June, [facility] [place] [facility] [address] [id number] [place] [address] May, [facility] [place] [facility] [address] [id number] [place] [address] May, [facility] [place] [facility] [address] [id number] [place] [address] May, [facility] [place] [facility] [address] [id number] [place] [address] May, [facility] [place] [facility] [address] [id number] [place] [address] May, [facility] [place] [facility] [address] [id number] [place] [address] May, [facility] [place] [facility] [address] [id number] [place] [address] May, [facility] [place] [facility] [address] [id number], [place] [address] May, [facility] [place] [facility] [address] [id number] [place] [address] May, [facility] [place] [facility] [address] [id number] [place] [address] May, [facility] [place] [facility] [address] [id number] [place] [address] Apr, [facility] [place] [facility] [address] [id number] [place] [address] Apr, [facility] [place] [facility] [address] [id number] [place] [address] Apr, [facility] [place] [facility] [address] [id number] [place] [address] Apr, [facility] [place] [facility] [address] [id number] [place] [address] Apr, [facility] [place] [facility] [address] [id number] [place] [address] Apr, [facility] [place] [facility] [address] [id number] [place] [address] Apr, [facility] [place] [facility] [address] [id number] [place] [address] Apr, [facility] [place] [facility] [address] [id number] [place] [address] Apr, [facility] [place] [facility] [address] [id number] [place] [address] Apr, [facility] [place] [facility] [address] [id number] [place] [address] Mar, [facility] [place] [facility] [address] [id number] [place] [address] Mar, [facility] [place] [facility] [address] [id number] [place] [address] Mar, [facility] [place] [facility] [address] [id number] [place] [address] Mar, [facility] [place] [facility] [address] [id number] [place] [address] Mar, [facility] [place] [facility] [address] [id number] [place] [address] Mar, [facility] [place] [facility] [address] [id number] [place] [address] Jan, [facility] [address] [id number] [place] [address] Jan, [facility] [place] [facility] [address] [id number] [place] [address] Jan, [facility] [place] [facility] [address] [facility] [id number] [place] [address] Jan, [facility] [place] [facility] [address] [id number], [place] [address] Jan, [facility] [address] [id number] [place] [address] Jan, [facility] [place] [facility] [address] [id number] [place] [address] Jan, [facility] [place] [facility] [address] [facility] [id number], [place] [address] Jan, [facility] [place] [facility] [address] [id number], [place] [address] Jan, [facility] [place] [facility] [address] [id number], [place] [address] Dec, [facility] [place] [facility] [address] [id number], [place] [address] Dec, [facility] [place] [facility] [address] [id number], [place] [address] Dec, [facility] [place] [facility] [address] [id number], [place] [address] Dec, [facility] [place] [facility] [address] [id number], [place] [address] Dec, [facility] [place] [facility] [address] [id number], [place] [address] Dec, [facility] [place] [facility] [address] [facility] [id number], [place] [address] Dec, [facility] [place] [facility] [address] [id number] [place] [address] Dec, [facility] [place] [facility] [address] [id number] [place] [address] Dec, [facility] [place] [facility] [address] [id number] [place] [address] Dec, [facility] [place] [facility] [address] [id number] [place] [address] Dec, [facility] [place] [facility] [address] [id number] [place] [address] Nov, [facility] [place] [facility] [address] [id number] [place] [address] Nov, [facility] [place] [facility] [address] [id number] [place] [address] Nov, [facility] [place] [facility] [address] [id number] [place] [address] Nov, [facility] [place] [facility] [address] [id number] [place] [address] Nov, [facility] [place] [facility] [address] [id number] [place] [address] Oct, [facility] [place] [facility] [address] [id number] [place] [address] Oct, [facility] [place] [facility] [address] [id number] [place] [address] Sep, [facility] [place] [facility] [address] [id number] [place] [address] Aug, [facility] [place] [facility] [address] [id number] [place] [address] Aug, [facility] [place] [facility] [address] [id number] [place] [address] Aug, [facility] [place] [facility] [address] [id number] [place] [address] Aug, [facility] [place] [facility] [address] [id number] [place] [address] Jul, [facility] [address] [id number] [place] [address] Jul, [facility] [address] [id number] [place] [address] June, [facility] [address] [id number] [place] [address] June, [facility] [address] [id number] [place] [address] June, [facility] [address] [id number] [place] [address] May, [facility] [address] [id number] [place] [address] May, [facility] [address] [id number] [place] [address] May, [facility] [address] [id number] [place] [address] Apr, [facility] [address] [id number] [place] [address] 18 Apr, 2012 [facility] [address] [id number] [place] [address] 15 Apr, 2012 [facility] [address] [id number], [place] [address] 14 Apr, 2012 [facility] [address] [id number] [place] [address] Apr, [facility] [place] [facility] [address] [id number] [place] [address] Apr, [facility] [address] [id number] [place] [address] Apr, [facility] [address] [id number], [place] [address] Apr, [facility] [address] [id number] [place] [address] Apr, [facility] [address] [id number] [place] [address] 20 Apr, 2012 [facility] [address] [id number] [place] [address] 19 Apr, 2012 [facility] [address] [id number] [place] [address] Apr, [facility] [address] [id number] [place] [address] 07 Apr, 2012 [facility] [address] [id number] [place] [address] Mar, [facility] [address] [id number] [place] [address] Mar, [facility] [address] [id number] [place] [address] 16 Mar, 2012 [facility] [address] [id number] [place] [address] Mar, [facility] [address] [id number] [place] [address] Mar, [facility] [address] [id number] [place] [address] Jan, [facility] [address] [id number] [place] [address] Jan, [facility] [place] [facility] [address] [id number] [place] [address] Jan, [facility] [place] [facility] [address] [id number] [place] [address] Jan, [facility] [facility] [address] [id number] [place] [address] 14 Jan, 2012 [facility] [place] [facility] [address] [id number] [place] [address] 13 Jan, 2012 [facility] [place] [facility] [address] [id number] [place] [address] 13 Jan, 2012 [facility] [place] [facility] [address] [id number] [place] [address] 11 Jan, 2012 [facility] [place] [facility] [address] [id number] [place] [address] 06 Jan, 2012 [facility] [address] [id number] [place] [address] 06 Jan, 2012 [facility] [place] [facility] [address] [id number] [place] [address] Jan, [facility] [address] [id number] [place] [address] Jan, [facility] [address] [id number] [place] [address] Jan, [facility] [place] [facility] [address] [id number] [place] [address] Jan, [facility] [place] [facility] [address] [id number] [place] [address] Dec, [facility] [place] [facility] [address] [id number] [place] [address] Dec, [facility] [place] [facility] [address] [id number], [place] [address] Dec, [facility] [place] [facility] [address] [id number] [place] [address] Dec, [facility] [place] [facility] [address] [id number] [place] [address] 15 Jan, 2012 [facility] [place] [facility] [address] [id number] [place] [address] 15 Jan, 2012 [facility] [place] [facility] [address] [id number] [place] [address] 14 Jan, 2012 [facility] [place] [facility] [address] [id number] [place] [address] 14 Jan, 2012 [facility] [place] [facility] [address] [id number] [place] [address] 14 Jan, 2012 [facility] [place] [facility] [address] [id number] [place] [address] 14 Jan, 2012 [facility] [place] [facility] [address] [id number] [place] [address] 07 Jan, 2012 [facility] [place] [facility] [address] [id number] [place] [address] 07 Jan, 2012 [facility] [place] [facility] [address] [id number] [place] [address] 16 Dec, 2011 [facility] [place] [facility] [address] [id number] [place] [address] 16 Dec, 2011 [facility] [place] [facility] [address] [id number] [place] [address] 13 Nov, 2011 [facility] [place] [facility] [address] [id number] [place] [address] 13 Nov, 2011 [facility] [place] [facility] [address] [id number] [place] [address] 13 Nov, 2011 [facility] [place] [facility] [address] [id number] [place] [address] 12 Nov, 2011 [facility] [place] [facility] [address] [id number] [place] [address] 30 Oct, 2011 [facility] [place] [facility] [address] [id number] [place] [address] Sep, [facility] [place] [facility] [address] [id number] [place] [address] 23 Aug, 2011 [facility] [place] [facility] [address] [id number] [place] [address] 13 Aug, 2011 [facility] [place] [facility] [address] [id number] [place] [address] Aug, [facility] [address] [id number] [place] [address] Aug, [facility] [address] [id number] [place] [address] June, [facility] [address] [id number] [place] [address] June, [facility] [address] [id number] [place] [address] May, [facility] [address] [id number] [place] [address] Apr, [facility] [address] [id number] [place] [address] Apr, [facility] [address] [id number] [place] [address] Apr, [facility] [address] [id number] [place] [address] Apr, [facility] [address] [id number] [place] [address] Apr, [facility] [address] [id number] [place] [address] Apr, [facility] [address] [id number] [place] [address] Mar, [facility] [address] [id number] [place] [address] Mar, [facility] [place] [facility] [address] [id number] [place] [address] Mar, [facility] [address] [id number] [place] [address] Jan, [facility] [address] [id number] [place] [address] Jan, [facility] [place] [facility] [address] [id number] [place] [address] Jan, [facility] [place] [facility] [address] [id number] [place] [address] Jan, [facility] [place] [facility] [address] [id number] [place] [address] Jan, [facility] [place] [facility] [address] [id number] [place] [address] Jan, [facility] [place] [facility] [address] [id number] [place] [address] Jan, [facility] [place] [facility] [address] [id number] [place] [address] Dec, [facility] [place] [facility] [address] [id number] [place] [address] Dec, [facility] [place] [facility] [address] [id number] [place] [address] Nov, [facility] [place] [facility] [address] [id number] [place] [address] Nov, [facility] [place] [facility] [address] [id number] [place] [address] Nov, [facility] [place] [facility] [address] [id number], [place] [address] Nov, [facility] [place] [facility] [address] [id number], [place] [address] Oct, [facility] [place] [facility] [address] [id number] [place] [address] Sep, [facility] [place] [facility] [address] [id number], [place] [address] Mar, [facility] [place] [facility] [address] [id number] [place] [address] Jan, [facility] [place] [facility] [address] [id number] [place] [address] 09 Dec, 2009 [facility] [address] [id number] [place] [address] 06 Dec, 2009 [facility] [place] [facility] [address] [id number] [place] [address] 04 Dec, 2009 [facility] [place] [facility] [address] [id number] [place] [address] Dec, [facility] [place] [facility] [address] [id number] [place] [address] 26 Nov, 2009 [facility] [place] [facility] [address] [id number] [place] [address] 15 Nov, 2009 [facility] [place] [facility] [address] [id number] [place] [address] 14 Nov, 2009 [facility] [place] [facility] [address] [id number] [place] [address] 14 Nov, 2009 [facility] [place] [facility] [address] [id number] [place] [address] 13 Oct, 2009 [facility] [place] [facility] [address] [id number] [place] [address] 17 Jul, 2009 [facility] [place] [facility] [address] [facility] [id number] [place] [address] June, [facility] [place] [facility] [address] [id number] [place] [address] 14 Jun, 2009 [facility] [place] [facility] [address] [id number], [place] [address] Apr, [facility] [place] [facility] [address] [id number] [place] [address] Mar, [facility] [place] [facility] [address] [id number] [place] [address] Jan, [facility] [place] [facility] [address] [id number], [place] [address] Jan, [facility] [address] [id number], [place] [address] Dec, [facility] [id number], [place] [address] Dec, [facility] [id number], [place] [address] Dec, [facility] [id number] [place] [address] Dec, [facility] [id number], [place] [address] Nov, [facility] [id number] [place] [address] Jul, [facility] [id number], [place] [address] June, IMMUNIZATIONS No Known Immunizations SOCIAL HISTORY Never Assessed REASON FOR VISIT EMR[place] [place]AN OF CARE VITAL SIGNS MEDICATIONS Unknown [...]
--- OUTSIDE RECORDS SUMMARY | 2018-08-23 17:10 | XMS REPORT ---
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 [employer] Name Role Phone Migration, Doctor Unavailable Unavailable PROBLEMS Type Condition ICD9-CM Code [id number] Code Onset Dates Condition Status SNOMED Code Problem Pulmonary asbestosis J61 Active 85809229 Problem Renal cyst, left N28.1 Active 24384440 Problem Left ventricular diastolic dysfunction I51.9 Active 075272438 Problem Urge incontinence N39.41 Active 635550737 Problem Anxiety F41.9 Active 43856397 Problem Low back pain M54.5 Active 413908838 Problem Age-related osteoporosis without current pathological fracture M81.0 Active 91835228 Problem History of diverticulitis Z87.19 Active [id number] Problem Allergic rhinitis, unspecified allergic rhinitis type J30.9 Active 07465952 Problem Nephrolithiasis N20.0 Active 34288834 Problem Nocturnal hypoxia G47.34 Active 158760241 Problem Psoriasis L40.9 Active 0615709 Problem Essential hypertension I10 Active 55505301 Problem Chronic gout, unspecified cause, unspecified site M1A.9XX0 Active 05973465 Problem Esophageal stricture K22.2 Active 22927100 Problem Obstructive sleep apnea syndrome G47.33 Active 34789283 Problem History of weight loss surgery Z98.84 Active 314990913 Problem 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 Active 79793109 Problem Chronic prescription opiate use Z79.899 Active 009456355 Problem Moderate episode of recurrent major depressive disorder F33.1 Active 986745313 Problem Chronic obstructive pulmonary disease, unspecified COPD type J44.9 Active 61421113 Problem Primary insomnia F51.01 Active 435225018 Problem Neuropathy G62.9 Active 440430425 Problem Cervicalgia M54.2 Active 6028133096403 Problem Hyperlipidemia, unspecified E78.5 Active 18751266 Problem Benign prostatic hyperplasia, presence of lower urinary tract symptoms unspecified, unspecified morphology N40.0 Active 753539327 Problem Acute right-sided low back pain with right-sided sciatica M54.41 Active 787229972 Problem Erectile dysfunction due to diseases classified elsewhere N52.1 Active 721738775 Problem Hammertoe of left foot M20.42 Active 391399429 ALLERGIES No Information ENCOUNTERS Encounter Location Date Diagnosis [place] [id number] [place] [address] May, [place] [id number] [place] [address] May, [place] [address] [address] May, [place] [address] [address] Apr, Moderate episode of recurrent major depressive disorder F33.1 ; Morbid obesity E66.01 ; Hyperlipidemia, unspecified E78.5 ; Primary insomnia F51.01 and Low back pain M54.5 [place] [address] [address] Apr, Primary insomnia F51.01 [place] [address] [address] Apr, Anxiety F41.9 [place] [id number] [place] [address] 15 Apr, 2018 Low back pain M54.5 [place] [id number] [place] [address] Apr, Anxiety F41.9 [place] [id number] [place] [address] Mar, Moderate episode of recurrent major depressive disorder F33.1 ; BMI 50.0-59.9, adult Z68.43 ; Anxiety F41.9 and Chronic prescription opiate use Z79.899 [place] [id number] [place] [address] Mar, Onychomycosis B35.1 ; Neuropathy G62.9 and Impaired circulation I99.9 [place] [id number] [place] [address] Mar, Low back pain M54.5 [facility] [address] [address] Mar, Anxiety F41.9 [facility] [id number] [place] [address] Jan, BMI 50.0-59.9, adult Z68.43 ; Chronic obstructive pulmonary disease, unspecified COPD type J44.9 ; Low back pain M54.5 and Moderate episode of recurrent major depressive disorder F33.1 [facility] [address] [address] Jan, [facility] [address] [address] Jan, [facility] [address] [address] Dec, Anxiety F41.9 [facility] [id number] [place] [address] Dec, [facility] [address] [address] Dec, Anxiety F41.9 [facility] [id number] [place] [address] Dec, [facility] [id number] [place] [address] Dec, Encounter for immunization Z23 [facility] [id number] [place] [address] Dec, [facility] [address] [address] Dec, Hammertoe of left foot M20.42 ; Edema of left foot R60.0 and Onychomycosis B35.1 [facility] [address] [place] [address] Nov, BMI 50.0-59.9, adult Z68.43 [facility] [address] [address] Nov, [facility] [id number] [place] [address] Nov, [facility] [address] [address] Nov, Anxiety F41.9 [facility] [address] [address] Oct, [facility] [address] [address] Oct, [facility] [address] [address] Oct, BMI 45.0-49.9, adult Z68.42 ; Essential hypertension I10 ; Hyperlipidemia, unspecified E78.5 ; Anxiety F41.9 ; Obstructive sleep apnea syndrome G47.33 ; Moderate episode of recurrent major depressive disorder F33.1 ; Left ventricular diastolic dysfunction I51.9 ; Acute pain of right shoulder M25.511 ; Pain of left foot M79.672 and Pain in right foot M79.671 [facility] [id number] [place] [address] Oct, Anxiety F41.9 [facility] [id number] [place] [address] Sep, Left foot pain M79.672 [facility] [id number] [place] [address] Sep, [facility] [id number] [place] [address] Sep, Anxiety F41.9 [facility] [id number] [place] [address] Sep, [facility] [address] [address] Aug, [facility] [id number] [place] [address] Aug, [facility] [id number] [place] [address] Aug, Anxiety F41.9 [facility] [id number] [place] [address] Aug, [facility] [id number] [place] [address] Jul, [facility] [id number] [place] [address] Jul, Anxiety F41.9 [facility] [id number] [place] [address] June, Anxiety F41.9 [facility] [id number] [place] [address] June, [facility] [id number] [place] [address] June, Low back pain M54.5 ; Chronic prescription opiate use Z79.899 ; Candidal intertrigo B37.2 ; Urge incontinence N39.41 ; Essential hypertension I10 ; Moderate episode of recurrent major depressive disorder F33.1 ; Age-related osteoporosis without current pathological fracture M81.0 and BMI 45.0-49.9, adult Z68.42 [facility] [address] [address] June, [facility] [id number] [place] [address] May, Anxiety F41.9 [facility] [id number] [place] [address] May, [facility] [id number] [place] [address] May, [facility] [id number] [place] [address] Apr, Anxiety F41.9 [facility] [id number] [place] [address] Apr, [facility] [address] [address] Apr, Low back pain M54.5 [facility] [address] [address] Apr, [facility] [address] [address] Apr, [facility] [id number] [place] [address] Apr, Anxiety F41.9 [facility] [id number] [place] [address] Apr, Right groin pain R10.31 [facility] [id number] [place] [address] Mar, [facility] [id number] [place] [address] Mar, [facility] [id number] [place] [address] Mar, Anxiety F41.9 [facility] [id number] [place] [address] Mar, Low back pain M54.5 [facility] [address] [address] Mar, Right groin pain R10.31 ; Low back pain M54.5 and BMI 45.0-49.9, adult Z68.42 [facility] [address] [address] Mar, [facility] [id number] [place] [address] Mar, [facility] [id number] [place] [address] Mar, [facility] [id number] [place] [address] Mar, [facility] [id number] [place] [address] Mar, Cough R05 ; Pneumonia of right lower lobe due to infectious organism J18.1 and Abnormal chest x-ray R93.8 [place] [id number] [place] [address] Mar, [place] [id number] [place] [address] Mar, [place] [id number] [place] [address] Jan, Anxiety F41.9 [place] [id number] [place] [address] Jan, [place] [id number] [place] [address] Jan, Moderate episode of recurrent major depressive disorder F33.1 [place] [id number] [place] [address] Jan, Subacromial bursitis of right shoulder joint M75.51 ; Shortness of breath on exertion R06.02 and BMI 45.0-49.9, adult Z68.42 [place] [id number] [place] [address] Dec, Anxiety F41.9 [place] [id number] [place] [address] Dec, [facility] [id number] [place] [address] Dec, Low back pain M54.5 [facility] [address] [place] [address] Oct, Low back pain M54.5 [facility] [id number] [place] [address] Sep, [facility] [id number] [place] [address] Sep, Erectile dysfunction due to diseases classified elsewhere N52.1 [facility] [id number] [place] [address] Sep, Erectile dysfunction due to diseases classified elsewhere N52.1 [facility] [id number] [place] [address] Sep, [facility] [id number] [place] [address] Sep, Erectile dysfunction due to diseases classified elsewhere N52.1 [facility] [id number] [place] [address] Sep, Low back pain M54.5 and Anxiety F41.9 [facility] [id number] [place] [address] Aug, Acute allergic rhinitis J30.9 [facility] [address] [place] [address] Aug, [facility] [id number] [place] [address] Aug, Anxiety F41.9 [facility] [id number] [place] [address] 15 Jul, 2016 Low back pain M54.5 ; Chronic prescription opiate use Z79.899 and Essential hypertension I10 [facility] [id number] [place] [address] Jul, Anxiety F41.9 and Low back pain M54.5 [facility] [address] [address] June, [facility] [id number] [place] [address] June, Anxiety F41.9 [facility] [address] [place] [address] May, Low back pain M54.5 [facility] [id number] [place] [address] May, [facility] [id number] [place] [address] May, Anxiety F41.9 [facility] [id number] [place] [address] Apr, [facility] [id number] [place] [address] Apr, Low back pain M54.5 [facility] [address] [place] [address] Apr, Moderate episode of recurrent major depressive disorder F33.1 [facility] [id number] [place] [address] Apr, Anxiety F41.9 [facility] [address] [place] [address] Apr, Low back pain M54.5 [facility] [address] [place] [address] 15 Apr, 2016 Elevated alkaline phosphatase level R74.8 [facility] [id number] [place] [address] 10 Apr, 2016 Alkaline phosphatase elevation R74.8 [facility] [address] [place] [address] 06 Apr, 2016 Anxiety F41.9 [facility] [id number] [place] [address] 03 Apr, 2016 Low back pain M54.5 [facility] [id number] [place] [address] 03 Apr, 2016 History of weight loss surgery Z98.84 ; Encounter for hepatitis C screening test for low risk patient Z11.59 ; History of herpes genitalis Z86.19 ; Essential hypertension I10 ; Hyperlipidemia, unspecified E78.5 ; Exposure to STD Z20.2 and Benign prostatic hyperplasia, presence of lower urinary tract symptoms unspecified, unspecified morphology N40.0 [facility] [id number] [place] [address] 02 Apr, 2016 [place] [id number] [place] [address] Mar, [place] [id number] [place] [address] Mar, [place] [id number] [place] [address] Mar, [facility] [id number] [place] [address] Mar, Acute right-sided low back pain with right-sided sciatica M54.41 [facility] [id number] [place] [address] Mar, Low back pain M54.5 [facility] [id number] [place] [address] Mar, Muscle strain of chest wall, initial encounter S29.011A ; Muscle strain of right thigh, initial encounter S76.911A and Acute non-recurrent maxillary sinusitis J01.00 [place] [id number] [place] [address] Mar, Benign prostatic hyperplasia, presence of lower urinary tract symptoms unspecified, unspecified morphology N40.0 [place] [id number] [place] [address] Jan, Low back pain M54.5 [facility] [id number] [place] [address] Jan, Low back pain M54.5 ; Essential hypertension I10 ; Hyperlipidemia, unspecified E78.5 ; Anxiety F41.9 ; Moderate episode of recurrent major depressive disorder F33.1 ; Primary insomnia F51.01 ; Exposure to STD Z20.2 ; Encounter for hepatitis C screening test for low risk patient Z11.59 and History of herpes genitalis Z86.19 [facility] [address] [address] 17 Jan, 2016 [facility] [address] [address] 20 Dec, 2015 [place] [address] [address] 14 Dec, 2015 Anxiety F41.9 ; Cervicalgia M54.2 ; Moderate episode of recurrent major depressive disorder F33.1 and Encounter for immunization Z23 [place] [id number] [place] [address] Oct, [place] [address] [address] 22 Nov, 2015 [place] [id number] [place] [address] 16 Nov, 2015 [facility] [id number] [place] [address] Oct, [facility] [id number] [place] [address] Sep, [facility] [address] [address] Aug, Low back pain M54.5 ; Anxiety F41.9 ; Primary insomnia F51.01 and Chronic prescription opiate use Z79.899 [facility] [address] [address] Jul, [facility] [address] [facility] [id number] [place] [address] Jul, [facility] [address] [id number] [place] [address] Jul, [facility] [address] [facility] [id number] [place] [address] Jul, [facility] [address] [facility] [id number] [place] [address] Jul, [facility] [address] [id number] [place] [address] June, [facility] [address] [facility] [id number] [place] [address] June, [facility] [address] [facility] [id number] [place] [address] June, [facility] [address] [facility] [id number] [address] June, [facility] [id number] [address] May, Preoperative cardiovascular examination Z01.810 [facility] [id number] [address] May, [facility] [address] [address] Apr, [facility] [address] [facility] [id number] [address] Apr, Osteoarthritis of right knee M17.9 [facility] [id number] [place] [address] 30 May, 2015 [facility] [address] [facility] [id number] [place] [address] 16 May, 2015 [facility] [id number] [address] Apr, [facility] [id number] [place] [address] Apr, [facility] [id number] [place] [address] Apr, History of excessive cerumen Z78.9 ; Obstructive sleep apnea syndrome G47.33 ; History of diverticulitis Z87.19 and Nephrolithiasis N20.0 [facility] [id number] [place] [address] 29 Apr, 2015 [facility] [id number] [place] [address] Apr, Abdominal pain R10.9 [place] [id number] [place] [address] 10 Apr, 2015 [place] [address] [address] 04 Apr, 2015 Osteoarthritis of right knee M17.9 [place] [id number] [place] [address] Mar, [place] [id number] [place] [address] 15 Mar, 2015 [place] [id number] [place] [address] Mar, [place] [id number] [place] [address] Mar, [facility] [id number] [place] [address] 13 Mar, 2015 Pyelonephritis N12 ; Left-sided thoracic back pain M54.6 ; Hematuria, unspecified R31.9 and Kidney stone N20.0 [place] [id number] [place] [address] 12 Mar, 2015 History of weight loss surgery Z98.84 [place] [address] [place] [address] 07 Mar, 2016 History of weight loss surgery Z98.84 and Hyperlipidemia, unspecified E78.5 [facility] [id number] [place] [address] Mar, 2016 Low back pain M54.5 ; Chronic prescription opiate use Z79.899 ; Hyperlipidemia, unspecified E78.5 ; Spasm of back muscles M62.830 and History of weight loss surgery Z98.84 [facility] [id number] [place] [address] Jan, [facility] [id number] [place] [address] Jan, [facility] [id number] [place] [phone] Jan, [facility] [id number] [place] [phone] Dec, [facility] [id number] [place] [id number] Dec, [facility] [id number] [place] [phone] Dec, [facility] [id number] [place] [phone] Nov, [facility] [id number] [place] [phone] Nov, Obstructive sleep apnea syndrome G47.33 and Pharyngoesophageal dysphagia R13.14 [facility] [id number] [address] Nov, [facility] [id number] [place] [phone] Nov, [facility] [id number] [address] Nov, [facility] [id number] [place] [id number] Oct, 2014 Dental examination V72.2 [facility] [id number] [place] [phone] Oct, [facility] [id number] [place] [phone] Oct, [facility] [id number] [place] [phone] Oct, [facility] [address] [id number] Oct, [facility] [address] [id number] Oct, BPH (benign prostatic hyperplasia) 600.00 and Urinary frequency 788.41 [facility] [id number] [place] [id number] Oct, [facility] [id number] [place] [address] Oct, [facility] [id number] [place] [address] Oct, [facility] [id number] [place] [address] Sep, Cerumen impaction 380.4 ; Cerumen debris on tympanic membrane 380.4 ; Psoriasis 696.1 and MICKY (secretory otitis media) 381.4 [facility] [id number] [place] [id number] Sep, Dental examination V72.2 [facility] [id number] [place] [address] Sep, Fatigue 780.79 ; Irritable bowel syndrome 564.1 ; Overweight 278.02 ; Poor sleep V69.4 ; Shaking spells 781.0 and Broken tooth 873.63 [facility] [id number] [place] [address] Sep, [facility] [address] [id number] [place] [address] Sep, [facility] [address] [id number] [place] [address] Aug, [facility] [address] [facility] [id number] [place] [address] Jul, [facility] [address] [facility] [id number] [place] [address] Jul, [facility] [address] [facility] [id number] [place] [address] Jul, [facility] [id number] [place] [address] Jul, [facility] [id number] [place] [address] June, Arthritis of knee, right 716.96 [facility] [id number] [place] [address] June, [facility] [id number] [place] [address] June, Elevated blood pressure reading without diagnosis of hypertension 796.2 [facility] [id number] [place] [address] June, [facility] [id number] [place] [address] June, [facility] [id number] [place] [address] June, [facility] [id number] [place] [address] June, [facility] [address] [id number] [place] [address] May, [facility] [id number] [place] [address] 13 May, 2014 [facility] [place] [facility] [address] [id number] [place] [address] 30 Apr, 2014 [facility] [place] [facility] [address] [id number] [place] [address] 30 Apr, 2014 [facility] [place] [facility] [address] [id number] [place] [address] Apr, [facility] [place] [facility] [address] [id number] [place] [address] Apr, [facility] [place] [facility] [address] [id number] [place] [address] Apr, [facility] [place] [facility] [address] [id number] [place] [address] Apr, [facility] [place] [facility] [address] [id number] [place] [address] Apr, [facility] [place] [facility] [address] [id number] [place] [address] Apr, [facility] [place] [facility] [address] [id number] [place] [address] Apr, [facility] [place] [facility] [address] [id number] [place] [address] Apr, [facility] [place] [facility] [address] [id number] [place] [address] Apr, [facility] [place] [facility] [address] [id number] [place] [address] Apr, [facility] [place] [facility] [address] [id number] [place] [address] Apr, [facility] [place] [facility] [address] [id number] [place] [address] Apr, [facility] [place] [facility] [address] [id number] [place] [address] Apr, [facility] [place] [facility] [address] [id number] [place] [address] 23 Apr, 2014 [facility] [place] [facility] [address] [id number] [place] [address] Apr, 2014 [facility] [place] [facility] [address] [id number] [place] [address] 20 Apr, 2014 [facility] [place] [facility] [address] [facility] [id number] [place] [address] 18 Apr, 2014 [facility] [place] [facility] [address] [id number] [place] [address] 18 Apr, 2014 [facility] [place] [facility] [address] [facility] [id number] [place] [address] 13 Apr, 2014 [facility] [place] [facility] [address] [facility] [id number] [place] [address] 13 Apr, 2014 [facility] [place] [facility] [address] [facility] [id number] [place] [address] 13 Apr, 2014 [facility] [place] [facility] [address] [facility] [id number] [place] [address] 13 Apr, 2014 [facility] [place] [facility] [address] [facility] [id number] [place] [address] 12 Apr, 2014 [facility] [place] [facility] [address] [facility] [id number] [place] [address] Apr, 2014 [facility] [place] [facility] [address] [facility] [id number] [address] Apr, 2014 [facility] [place] [facility] [address] [facility] [id number] [place] [address] Apr, 2014 [facility] [place] [facility] [address] [facility] [id number] [place] [address] Apr, 2014 [facility] [place] [facility] [address] [facility] [id number] [place] [address] Apr, 2014 [facility] [place] [facility] [address] [facility] [id number] [place] [address] Apr, [facility] [address] [id number] [place] [address] Apr, [facility] [address] [id number] [place] [address] Apr, [facility] [address] [id number] [place] [address] Mar, [facility] [address] [id number] [place] [address] Mar, [facility] [address] [id number] [place] [address] Mar, [facility] [address] [id number] [place] [address] Mar, [facility] [address] [id number] [place] [address] Mar, [facility] [address] [id number] [place] [address] Mar, [facility] [address] [id number] [place] [address] Mar, [facility] [address] [facility] [id number] [place] [address] Mar, [facility] [address] [id number] [place] [address] Mar, [facility] [address] [id number] [place] [address] Mar, [facility] [place] [facility] [address] [id number] [place] [address] Jan, [facility] [place] [facility] [address] [id number] [place] [address] Jan, [facility] [place] [facility] [address] [id number] [place] [address] Jan, [facility] [place] [facility] [address] [id number] [place] [address] Jan, [facility] [place] [facility] [address] [id number] [place] [address] Jan, [facility] [place] [facility] [address] [id number] [place] [address] Jan, [facility] [place] [facility] [address] [id number] [place] [address] Jan, [facility] [place] [facility] [address] [id number] [place] [address] Jan, [facility] [place] [facility] [address] [id number] [place] [address] Jan, [facility] [place] [facility] [address] [id number] [place] [address] Jan, [facility] [place] [facility] [address] [id number] [place] [address] Jan, [facility] [place] [facility] [address] [id number] [place] [address] Jan, [facility] [place] [facility] [address] [id number] [place] [address] Dec, [facility] [place] [facility] [address] [id number] [place] [address] Dec, [facility] [place] [facility] [address] [id number] [place] [address] Dec, [facility] [place] [facility] [address] [id number] [place] [address] Dec, [facility] [place] [facility] [address] [id number] [place] [address] Dec, [facility] [place] [facility] [address] [id number] [place] [address] Dec, [facility] [place] [facility] [address] [id number] [address] Dec, [facility] [place] [facility] [address] [id number] [place] [address] Dec, [facility] [place] [facility] [address] [id number] [place] [address] Dec, [facility] [place] [facility] [address] [id number] [place] [address] Dec, [facility] [place] [facility] [address] [id number] [place] [address] Nov, [facility] [place] [facility] [address] [id number] [place] [address] Nov, [facility] [place] [facility] [address] [id number] [place] [address] Nov, [facility] [place] [facility] [address] [id number] [place] [address] Nov, [facility] [place] [facility] [address] [id number] [place] [address] Nov, [facility] [place] [facility] [address] [id number] [place] [address] Nov, [facility] [place] [facility] [address] [id number] [place] [address] Nov, [facility] [place] [facility] [address] [id number] [address] Nov, [facility] [place] [facility] [address] [id number] [place] [address] Nov, [facility] [place] [facility] [address] [id number] [place] [address] Nov, [facility] [place] [facility] [address] [id number] [place] [address] Nov, [facility] [place] [facility] [address] [id number] [place] [address] Nov, [facility] [place] [facility] [address] [id number] [place] [address] 14 Nov, 2013 [facility] [place] [facility] [address] [id number] [place] [address] 14 Nov, 2013 [facility] [place] [facility] [address] [id number] [place] [address] 10 Nov, 2013 [facility] [place] [facility] [address] [id number] [place] [address] 10 Nov, 2013 [facility] [place] [facility] [address] [id number] [place] [address] 08 Nov, 2013 [facility] [place] [facility] [address] [id number] [place] [address] Nov, [facility] [place] [facility] [address] [id number] [place] [address] Nov, [facility] [place] [facility] [address] [id number] [place] [address] Nov, [facility] [place] [facility] [address] [id number] [place] [address] 26 Oct, 2013 [facility] [place] [facility] [address] [id number] [place] [address] 26 Oct, 2013 [facility] [place] [facility] [address] [id number] [place] [address] 19 Oct, 2013 [facility] [place] [facility] [address] [id number] [place] [address] 19 Oct, 2013 [facility] [place] [facility] [address] [id number] [place] [address] 12 Oct, 2013 [facility] [place] [facility] [address] [id number] [place] [address] 12 Oct, 2013 [facility] [place] [facility] [address] [id number] [place] [address] 10 Oct, 2013 [facility] [place] [facility] [address] [id number] [place] [address] Oct, [facility] [place] [facility] [address] [id number] [place] [address] Oct, [facility] [place] [facility] [address] [id number] [place] [address] Oct, [facility] [place] [facility] [address] [id number] [place] [address] Sep, [facility] [place] [facility] [address] [id number] [place] [address] Sep, [facility] [place] [facility] [address] [id number] [place] [address] Sep, [facility] [place] [facility] [address] [id number] [place] [address] Sep, [facility] [place] [facility] [address] [id number] [place] [address] Sep, [facility] [place] [facility] [address] [id number] [place] [address] Sep, [facility] [place] [facility] [address] [id number] [place] [address] Sep, [facility] [place] [facility] [address] [id number] [place] [address] Sep, [facility] [place] [facility] [address] [id number] [place] [address] Sep, [facility] [place] [facility] [address] [id number] [place] [address] Sep, [facility] [place] [facility] [address] [id number] [place] [address] Sep, [facility] [place] [facility] [address] [id number] [place] [address] Sep, [facility] [place] [facility] [address] [id number] [place] [address] Sep, [facility] [place] [facility] [address] [id number] [place] [address] Sep, [facility] [place] [facility] [address] [id number] [place] [address] Sep, [facility] [place] [facility] [address] [id number] [place] [address] Sep, [facility] [place] [facility] [address] [id number] [place] [address] Sep, [facility] [place] [facility] [address] [id number] [place] [address] Sep, [facility] [place] [facility] [address] [id number] [place] [address] Sep, [facility] [place] [facility] [address] [id number] [place] [address] Sep, [facility] [place] [facility] [address] [id number] [place] [address] Sep, [facility] [place] [facility] [address] [id number] [place] [address] Sep, [facility] [place] [facility] [address] [id number] [place] [address] Sep, [facility] [place] [facility] [address] [id number] [place] [address] Sep, [facility] [place] [facility] [address] [id number] [place] [address] Sep, [facility] [place] [facility] [address] [id number] [place] [address] Aug, [facility] [place] [facility] [address] [id number] [place] [address] Aug, [facility] [place] [facility] [address] [id number] [place] [address] Aug, [facility] [place] [facility] [address] [id number] [place] [address] Aug, [facility] [place] [facility] [address] [id number] [place] [address] Aug, 2013 [facility] [place] [facility] [address] [id number] [place] [address] Aug, [facility] [place] [facility] [address] [id number] [place] [address] Aug, 2013 [facility] [place] [facility] [address] [id number] [place] [address] Aug, 2013 [facility] [place] [facility] [address] [id number] [place] [address] Aug, [facility] [place] [facility] [address] [id number] [facility] [place] [address] Aug, [facility] [place] [facility] [address] [id number] [place] [address] Aug, [facility] [place] [facility] [address] [id number] [place] [address] Aug, [facility] [place] [facility] [address] [id number] [place] [address] Aug, [facility] [place] [facility] [address] [id number] [place] [address] Jul, [facility] [place] [facility] [address] [id number] [place] [address] Jul, [facility] [place] [facility] [address] [id number] [place] [address] Jul, [facility] [place] [facility] [address] [id number] [place] [address] Jul, [facility] [place] [facility] [address] [id number] [place] [address] Jul, [facility] [place] [facility] [address] [id number] [place] [address] Jul, [facility] [place] [facility] [address] [id number] [place] [address] Jul, [facility] [place] [facility] [address] [id number] [place] [address] June, [facility] [place] [facility] [address] [id number] [place] [address] June, [facility] [place] [facility] [address] [id number] [place] [address] June, [facility] [place] [facility] [address] [id number] [place] [address] June, [facility] [place] [facility] [address] [id number] [place] [address] May, [facility] [place] [facility] [address] [id number] [place] [address] May, [facility] [place] [facility] [address] [id number] [place] [address] May, [facility] [place] [facility] [address] [id number] [place] [address] May, [facility] [place] [facility] [address] [id number] [place] [address] May, [facility] [place] [facility] [address] [id number] [place] [address] May, [facility] [place] [facility] [address] [id number] [place] [address] May, [facility] [place] [facility] [address] [id number] [address] May, [facility] [place] [facility] [address] [id number] [place] [address] May, [facility] [place] [facility] [address] [id number] [place] [address] May, [facility] [place] [facility] [address] [id number] [place] [address] Apr, [facility] [place] [facility] [address] [id number] [place] [address] Apr, [facility] [place] [facility] [address] [id number] [place] [address] Apr, [facility] [place] [facility] [address] [id number] [place] [address] Apr, [facility] [place] [facility] [address] [id number] [place] [address] Apr, [facility] [place] [facility] [address] [id number] [place] [address] Apr, [facility] [place] [facility] [address] [id number] [place] [address] Apr, [facility] [place] [facility] [address] [id number] [place] [address] Apr, [facility] [place] [facility] [address] [id number] [place] [address] Apr, [facility] [place] [facility] [address] [id number] [place] [address] Apr, [facility] [place] [facility] [address] [id number] [place] [address] Mar, [facility] [place] [facility] [address] [id number] [place] [address] Mar, [facility] [place] [facility] [address] [id number] [place] [address] Mar, [facility] [place] [facility] [address] [id number] [place] [address] Mar, [facility] [place] [facility] [address] [id number] [place] [address] Mar, [facility] [place] [facility] [address] [id number] [place] [address] Mar, [facility] [place] [facility] [address] [id number] [place] [address] Jan, [facility] [address] [id number] [place] [address] Jan, [facility] [place] [facility] [address] [id number] [place] [address] Jan, [facility] [place] [facility] [address] [facility] [id number] [place] [address] Jan, [facility] [place] [facility] [address] [id number] [address] Jan, [facility] [address] [id number] [place] [address] Jan, [facility] [place] [facility] [address] [id number] [place] [address] Jan, [facility] [place] [facility] [address] [facility] [id number] [place] [address] Jan, [facility] [place] [facility] [address] [id number] [address] Jan, [facility] [place] [facility] [address] [id number] [place] [address] Dec, [facility] [place] [facility] [address] [id number] [place] [address] Dec, [facility] [place] [facility] [address] [id number] [place] [address] Dec, [facility] [place] [facility] [address] [id number] [place] [address] Dec, [facility] [place] [facility] [address] [id number] [place] [address] Dec, [facility] [place] [facility] [address] [id number] [place] [address] Dec, [facility] [place] [facility] [address] [facility] [id number] [place] [address] Dec, [facility] [place] [facility] [address] [id number] [place] [address] Dec, [facility] [place] [facility] [address] [id number] [place] [address] Dec, [facility] [place] [facility] [address] [id number] [place] [address] Dec, [facility] [place] [facility] [address] [id number] [place] [address] Dec, [facility] [place] [facility] [address] [id number] [place] [address] Nov, [facility] [place] [facility] [address] [id number] [place] [address] Nov, [facility] [place] [facility] [address] [id number] [place] [address] Nov, [facility] [place] [facility] [address] [id number] [place] [address] Nov, [facility] [place] [facility] [address] [id number] [place] [address] Nov, [facility] [place] [facility] [address] [id number] [place] [address] Oct, [facility] [place] [facility] [address] [id number] [place] [address] Oct, [facility] [place] [facility] [address] [id number] [place] [address] Sep, [facility] [place] [facility] [address] [id number] [place] [address] Aug, [facility] [place] [facility] [address] [id number] [place] [address] Aug, [facility] [place] [facility] [address] [id number] [place] [address] Aug, [facility] [place] [facility] [address] [id number] [place] [address] Aug, [facility] [place] [facility] [address] [id number] [place] [address] Jul, [facility] [address] [id number] [place] [address] Jul, [facility] [address] [id number] [place] [address] June, [facility] [address] [id number] [place] [address] June, [facility] [address] [id number] [place] [address] June, [facility] [address] [id number] [place] [address] May, [facility] [address] [id number] [place] [address] May, [facility] [address] [id number] [place] [address] May, [facility] [address] [id number] [place] [address] Apr, [facility] [address] [id number] [place] [address] 18 Apr, 2012 [facility] [address] [id number] [place] [address] 15 Apr, 2012 [facility] [address] [id number] [address] 14 Apr, 2012 [facility] [address] [id number] [place] [address] Apr, [facility] [place] [facility] [address] [id number] [place] [address] Apr, [facility] [address] [id number] [place] [address] Apr, [facility] [address] [id number] [place] [address] Apr, [facility] [address] [id number] [place] [address] Apr, [facility] [address] [id number] [place] [address] 20 Apr, 2012 [facility] [address] [id number] [place] [address] 19 Apr, 2012 [facility] [address] [id number] [place] [address] Apr, [facility] [address] [id number] [place] [address] 07 Apr, 2012 [facility] [address] [id number] [place] [address] Mar, [facility] [address] [id number] [place] [address] Mar, [facility] [address] [id number] [place] [address] 16 Mar, 2012 [facility] [address] [id number] [place] [address] Mar, [facility] [address] [id number] [place] [address] Mar, [facility] [address] [id number] [place] [address] Jan, [facility] [address] [id number] [place] [address] Jan, [facility] [place] [facility] [address] [id number] [place] [address] Jan, [facility] [place] [facility] [address] [id number] [place] [address] Jan, [facility] [address] [id number] [place] [address] 14 Jan, 2012 [facility] [place] [facility] [address] [id number] [place] [address] 13 Jan, 2012 [facility] [place] [facility] [address] [id number] [place] [address] 13 Jan, 2012 [facility] [place] [facility] [address] [id number] [place] [address] 11 Jan, 2012 [facility] [place] [facility] [address] [id number] [place] [address] 06 Jan, 2012 [facility] [address] [id number] [place] [address] 06 Jan, 2012 [facility] [facility] [address] [id number] [place] [address] Jan, [facility] [address] [id number] [place] [address] Jan, [facility] [address] [id number] [place] [address] Jan, [facility] [place] [facility] [address] [id number] [place] [address] Jan, [facility] [place] [facility] [address] [id number] [place] [address] Dec, [facility] [address] [id number] [place] [address] Dec, [facility] [place] [facility] [address] [id number] [address] Dec, [facility] [place] [facility] [address] [id number] [place] [address] Dec, [facility] [place] [facility] [address] [id number] [place] [address] 15 Jan, 2012 [facility] [place] [facility] [address] [id number] [place] [address] 15 Jan, 2012 [facility] [place] [facility] [address] [id number] [place] [address] 14 Jan, 2012 [facility] [place] [facility] [address] [id number] [place] [address] 14 Jan, 2012 [facility] [place] [facility] [address] [id number] [place] [address] 14 Jan, 2012 [facility] [place] [facility] [address] [id number] [place] [address] 14 Jan, 2012 [facility] [place] [facility] [address] [id number] [place] [address] 07 Jan, 2012 [facility] [place] [facility] [address] [id number] [place] [address] 07 Jan, 2012 [facility] [place] [facility] [address] [id number] [place] [address] 16 Dec, 2011 [facility] [place] [facility] [address] [id number] [place] [address] 16 Dec, 2011 [facility] [place] [facility] [address] [id number] [place] [address] 13 Nov, 2011 [facility] [place] [facility] [address] [id number] [place] [address] 13 Nov, 2011 [facility] [place] [facility] [address] [id number] [place] [address] 13 Nov, 2011 [facility] [place] [facility] [address] [id number] [place] [address] 12 Nov, 2011 [facility] [place] [address] [id number] [place] [address] 30 Oct, 2011 [facility] [place] [facility] [address] [id number] [place] [address] Sep, [facility] [place] [facility] [address] [id number] [place] [address] 23 Aug, 2011 [facility] [place] [facility] [address] [id number] [place] [address] 13 Aug, 2011 [facility] [address] [id number] [place] [address] Aug, [facility] [address] [id number] [place] [address] Aug, [facility] [address] [id number] [place] [address] June, [facility] [address] [id number] [place] [address] June, [facility] [address] [id number] [place] [address] May, [facility] [address] [id number] [place] [address] Apr, [facility] [address] [id number] [place] [address] Apr, [facility] [address] [id number] [place] [address] Apr, [facility] [address] [id number] [place] [address] Apr, [facility] [address] [id number] [place] [address] Apr, [facility] [address] [id number] [place] [address] Apr, [facility] [address] [id number] [place] [address] Mar, [facility] [address] [id number] [place] [address] Mar, [facility] [address] [id number] [place] [address] Mar, [facility] [address] [id number] [place] [address] Jan, [facility] [address] [id number] [place] [address] Jan, [facility] [place] [facility] [address] [id number] [place] [address] Jan, [facility] [place] [facility] [address] [id number] [place] [address] Jan, [facility] [place] [facility] [address] [id number] [place] [address] Jan, [facility] [place] [facility] [address] [id number] [place] [address] Jan, [facility] [place] [facility] [address] [id number] [place] [address] Jan, [facility] [place] [facility] [address] [id number] [place] [address] Dec, [facility] [place] [facility] [address] [id number] [place] [address] Dec, [facility] [facility] [address] [id number] [place] [address] Nov, [facility] [place] [facility] [address] [id number] [place] [address] Nov, [facility] [facility] [address] [id number] [place] [address] Nov, [facility] [facility] [address] [id number] [address] Nov, [facility] [facility] [address] [id number] [place] [address] Oct, [facility] [facility] [address] [id number] [place] [address] Sep, [facility] [facility] [address] [id number] [place] [address] Mar, [facility] [address] [id number] [place] [address] Jan, [facility] [address] [id number] [place] [address] 09 Dec, 2009 [facility] [address] [id number] [place] [address] 06 Dec, 2009 [facility] [address] [id number] [place] [address] 04 Dec, 2009 [facility] [facility] [address] [id number] [place] [address] Dec, [facility] [address] [id number] [place] [address] 26 Nov, 2009 [facility] [address] [id number] [place] [address] 15 Nov, 2009 [facility] [facility] [address] [id number] [place] [address] 14 Nov, 2009 [facility] [facility] [address] [id number] [place] [address] 14 Nov, 2009 [facility] [facility] [address] [id number] [place] [address] 13 Oct, 2009 [facility] [place] [facility] [address] [id number] [place] [address] 17 Jul, 2009 [facility] [facility] [address] [facility] [id number] [place] [address] June, [facility] [place] [address] [id number] [place] [address] 14 Jun, 2009 [facility] [address] [id number] [address] Apr, [facility] [address] [id number] [place] [address] Mar, [facility] [address] [id number] [place] [address] Jan, [facility] [address] [id number] [place] [address] Jan, [facility] [address] [id number] [address] Dec, [facility] [id number] [address] Dec, [facility] [id number] [address] Dec, [facility] [id number] [place] [address] Dec, [facility] [id number] [address] Nov, [facility] [id number] [place] [address] Jul, [facility] [id number] [address] June, IMMUNIZATIONS No Known Immunizations SOCIAL HISTORY Never Assessed REASON FOR VISIT EMR-[facility] PLAN OF CARE VITAL SIGNS MEDICATIONS Unknown Medications RESULTS No Results PROCEDURES No Known procedures INSTRUCTIONS MEDICATIONS ADMINISTERED No Known Medications MEDICAL (GENERAL) HISTORY Type Description Date Medical History hypertension Medical History sleep apnea-did not tolerate CPAP Medical History oxygen dependent at [facility] Medical History colonic polyps Medical History [...]
--- OUTSIDE RECORDS SUMMARY | 2018-08-23 17:11 | XMS REPORT ---
Author Author Migration, Doctor Organization [facility] Address Unknown Phone Unavailable Care Team Providers Care Drive Tester Name Role Phone Migration, Doctor Unavailable Unavailable PROBLEMS Type Condition ICD9-CM Code [id number] Code Onset Dates Condition Status SNOMED Code Problem Pulmonary asbestosis J61 Active 43004515 Problem Renal cyst, left N28.1 Active 10440185 Problem Left ventricular diastolic dysfunction I51.9 Active 691647915 Problem Urge incontinence N39.41 Active 447313057 Problem Anxiety F41.9 Active 68796155 Problem Low back pain M54.5 Active 483542028 Problem Age-related osteoporosis without current pathological fracture M81.0 Active 90905920 Problem History of diverticulitis Z87.19 Active 473189874490230 Problem Allergic rhinitis, unspecified allergic rhinitis type J30.9 Active 36969425 Problem Nephrolithiasis N20.0 Active 36910636 Problem Nocturnal hypoxia G47.34 Active 867534557 Problem Psoriasis L40.9 Active 7397139 Problem Essential hypertension I10 Active 10550314 Problem Chronic gout, unspecified cause, unspecified site M1A.9XX0 Active 34424468 Problem Esophageal stricture K22.2 Active 51011981 Problem Obstructive sleep apnea syndrome G47.33 Active 38480523 Problem History of weight loss surgery Z98.84 Active 436468561 Problem 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 Active 90788691 Problem Chronic prescription opiate use Z79.899 Active 877690416 Problem Moderate episode of recurrent major depressive disorder F33.1 Active 550087225 Problem Chronic obstructive pulmonary disease, unspecified COPD type J44.9 Active 66670448 Problem Primary insomnia F51.01 Active 055921781 Problem Neuropathy G62.9 Active 494454506 Problem Cervicalgia M54.2 Active 8422960097661 Problem Hyperlipidemia, unspecified E78.5 Active 45214184 Problem Benign prostatic hyperplasia, presence of lower urinary tract symptoms unspecified, unspecified morphology N40.0 Active 343525857 Problem Acute right-sided low back pain with right-sided sciatica M54.41 Active 144129533 Problem Erectile dysfunction due to diseases classified elsewhere N52.1 Active 271568135 Problem Hammertoe of left foot M20.42 Active 101261505 ALLERGIES No Information ENCOUNTERS Encounter Location Date Diagnosis [place] [id number] [place] [address] May, [place] [id number] [place] [address] May, [facility] [address] [address] May, [place] [address] [address] Apr, Moderate episode of recurrent major depressive disorder F33.1 ; Morbid obesity E66.01 ; Hyperlipidemia, unspecified E78.5 ; Primary insomnia F51.01 and Low back pain M54.5 [facility] [address] [address] Apr, Primary insomnia F51.01 [facility] [address] [address] Apr, Anxiety F41.9 [place] [id number] [place] [address] 15 Apr, 2018 Low back pain M54.5 [place] [id number] [place] [address] Apr, Anxiety F41.9 [place] [id number] [place] [address] Mar, Moderate episode of recurrent major depressive disorder F33.1 ; BMI 50.0-59.9, adult Z68.43 ; Anxiety F41.9 and Chronic prescription opiate use Z79.899 [place] [id number] [place] [address] Mar, Onychomycosis B35.1 ; Neuropathy G62.9 and Impaired circulation I99.9 [place] [id number] [place] [address] Mar, Low back pain M54.5 [facility] [place] [address] [address] Mar, Anxiety F41.9 [facility] [place] [id number] [place] [address] Jan, BMI 50.0-59.9, adult Z68.43 ; Chronic obstructive pulmonary disease, unspecified COPD type J44.9 ; Low back pain M54.5 and Moderate episode of recurrent major depressive disorder F33.1 [facility] [place] [address] [address] Jan, [facility] [place] [address] [address] Jan, [facility] [place] [address] [address] Dec, Anxiety F41.9 [facility] [place] [id number] [place] [address] Dec, [facility] [place] [address] [address] Dec, Anxiety F41.9 [facility] [place] [id number] [place] [address] Dec, [facility] [place] [id number] [place] [address] Dec, Encounter for immunization Z23 [facility] [id number] [place] [address] Dec, [facility] [place] [address] [address] Dec, Hammertoe of left foot M20.42 ; Edema of left foot R60.0 and Onychomycosis B35.1 [facility] [address] [place] [address] Nov, BMI 50.0-59.9, adult Z68.43 [facility] [place] [address] [address] Nov, [facility] [place] [id number] [place] [address] Nov, [facility] [place] [address] [address] Nov, Anxiety F41.9 [facility] [place] [address] [address] Oct, [facility] [place] [address] [address] Oct, [facility] [place] [address] [address] Oct, BMI 45.0-49.9, adult Z68.42 ; Essential hypertension I10 ; Hyperlipidemia, unspecified E78.5 ; Anxiety F41.9 ; Obstructive sleep apnea syndrome G47.33 ; Moderate episode of recurrent major depressive disorder F33.1 ; Left ventricular diastolic dysfunction I51.9 ; Acute pain of right shoulder M25.511 ; Pain of left foot M79.672 and Pain in right foot M79.671 [facility] [place] [id number] [place] [address] Oct, Anxiety F41.9 [facility] [id number] [place] [address] Sep, Left foot pain M79.672 [facility] [place] [id number] [place] [address] Sep, [facility] [place] [id number] [place] [address] Sep, Anxiety F41.9 [facility] [place] [id number] [place] [address] Sep, [facility] [place] [address] [address] Aug, [facility] [place] [id number] [place] [address] Aug, [facility] [place] [id number] [place] [address] Aug, Anxiety F41.9 [facility] [place] [id number] [place] [address] Aug, [facility] [place] [id number] [place] [address] Jul, [facility] [place] [id number] [place] [address] Jul, Anxiety F41.9 [facility] [place] [id number] [place] [address] June, Anxiety F41.9 [facility] [place] [id number] [place] [address] June, [facility] [place] [id number] [place] [address] June, Low back pain M54.5 ; Chronic prescription opiate use Z79.899 ; Candidal intertrigo B37.2 ; Urge incontinence N39.41 ; Essential hypertension I10 ; Moderate episode of recurrent major depressive disorder F33.1 ; Age-related osteoporosis without current pathological fracture M81.0 and BMI 45.0-49.9, adult Z68.42 [facility] [place] [address] [place] [address] June, [facility] [place] [id number] [place] [address] May, Anxiety F41.9 [facility] [place] [id number] [place] [address] May, [facility] [place] [id number] [place] [address] May, [facility] [place] [id number] [place] [address] Apr, Anxiety F41.9 [facility] [place] [id number] [place] [address] Apr, [facility] [place] [address] [address] Apr, Low back pain M54.5 [facility] [place] [address] [address] Apr, [facility] [place] [address] [address] Apr, [facility] [place] [id number] [place] [address] Apr, Anxiety F41.9 [facility] [place] [id number] [place] [address] Apr, Right groin pain R10.31 [facility] [place] [id number] [place] [address] Mar, [facility] [place] [id number] [place] [address] Mar, [facility] [place] [id number] [place] [address] Mar, Anxiety F41.9 [facility] [place] [id number] [place] [address] Mar, Low back pain M54.5 [facility] [place] [address] [address] Mar, Right groin pain R10.31 ; Low back pain M54.5 and BMI 45.0-49.9, adult Z68.42 [facility] [place] [address] [address] Mar, [facility] [place] [id number] [place] [address] Mar, [facility] [place] [id number] [place] [address] Mar, [facility] [id number] [place] [address] Mar, [facility] [id number] [place] [address] Mar, Cough R05 ; Pneumonia of right lower lobe due to infectious organism J18.1 and Abnormal chest x-ray R93.8 [place] [id number] [place] [address] Mar, [place] [id number] [place] [address] Mar, [place] [id number] [place] [address] Jan, Anxiety F41.9 [place] [id number] [place] [address] Jan, [place] [id number] [place] [address] Jan, Moderate episode of recurrent major depressive disorder F33.1 [place] [id number] [place] [address] Jan, Subacromial bursitis of right shoulder joint M75.51 ; Shortness of breath on exertion R06.02 and BMI 45.0-49.9, adult Z68.42 [place] [id number] [place] [address] Dec, Anxiety F41.9 [place] [id number] [place] [address] Dec, [facility] [place] [id number] [place] [address] Dec, Low back pain M54.5 [facility] [place] [id number] [place] [address] Oct, Low back pain M54.5 [facility] [place] [id number] [place] [address] Sep, [facility] [place] [id number] [place] [address] Sep, Erectile dysfunction due to diseases classified elsewhere N52.1 [facility] [place] [id number] [place] [address] Sep, Erectile dysfunction due to diseases classified elsewhere N52.1 [facility] [place] [id number] [place] [address] Sep, [facility] [place] [id number] [place] [address] Sep, Erectile dysfunction due to diseases classified elsewhere N52.1 [facility] [place] [id number] [place] [address] Sep, Low back pain M54.5 and Anxiety F41.9 [facility] [id number] [place] [address] Aug, Acute allergic rhinitis J30.9 [facility] [place] [id number] [place] [address] Aug, [facility] [place] [id number] [place] [address] Aug, Anxiety F41.9 [facility] [place] [id number] [place] [address] 15 Jul, 2016 Low back pain M54.5 ; Chronic prescription opiate use Z79.899 and Essential hypertension I10 [facility] [place] [id number] [place] [address] Jul, Anxiety F41.9 and Low back pain M54.5 [facility] [place] [address] [place] [address] June, [facility] [place] [id number] [place] [address] June, Anxiety F41.9 [facility] [place] [id number] [place] [address] May, Low back pain M54.5 [facility] [place] [id number] [place] [address] May, [facility] [place] [id number] [place] [address] May, Anxiety F41.9 [facility] [place] [id number] [place] [address] Apr, [facility] [place] [id number] [place] [address] Apr, Low back pain M54.5 [facility] [place] [id number] [place] [address] Apr, Moderate episode of recurrent major depressive disorder F33.1 [facility] [place] [id number] [place] [address] Apr, Anxiety F41.9 [facility] [place] [id number] [place] [address] Apr, Low back pain M54.5 [facility] [place] [address] [place] [address] 15 Apr, 2016 Elevated alkaline phosphatase level R74.8 [facility] [place] [id number] [place] [address] 10 Apr, 2016 Alkaline phosphatase elevation R74.8 [facility] [place] [id number] [place] [address] 06 Apr, 2016 Anxiety F41.9 [facility] [place] [id number] [place] [address] 03 Apr, 2016 Low back pain M54.5 [facility] [place] [id number] [place] [address] 03 Apr, 2016 History of weight loss surgery Z98.84 ; Encounter for hepatitis C screening test for low risk patient Z11.59 ; History of herpes genitalis Z86.19 ; Essential hypertension I10 ; Hyperlipidemia, unspecified E78.5 ; Exposure to STD Z20.2 and Benign prostatic hyperplasia, presence of lower urinary tract symptoms unspecified, unspecified morphology N40.0 [facility] [place] [id number] [place] [address] 02 Apr, 2016 [place] [id number] [place] [address] Mar, [place] [id number] [place] [address] Mar, [place] [id number] [place] [address] Mar, [facility] [place] [id number] [place] [address] Mar, Acute right-sided low back pain with right-sided sciatica M54.41 [facility] [place] [id number] [place] [address] Mar, Low back pain M54.5 [facility] [id number] [place] [address] Mar, Muscle strain of chest wall, initial encounter S29.011A ; Muscle strain of right thigh, initial encounter S76.911A and Acute non-recurrent maxillary sinusitis J01.00 [place] [id number] [place] [address] Mar, Benign prostatic hyperplasia, presence of lower urinary tract symptoms unspecified, unspecified morphology N40.0 [place] [id number] [place] [address] Jan, Low back pain M54.5 [facility] [place] [id number] [place] [address] Jan, Low back pain M54.5 ; Essential hypertension I10 ; Hyperlipidemia, unspecified E78.5 ; Anxiety F41.9 ; Moderate episode of recurrent major depressive disorder F33.1 ; Primary insomnia F51.01 ; Exposure to STD Z20.2 ; Encounter for hepatitis C screening test for low risk patient Z11.59 and History of herpes genitalis Z86.19 [facility] [place] [address] [address] 17 Jan, 2016 [facility] [place] [address] [address] 20 Dec, 2015 [place] [address] [address] 14 Dec, 2015 Anxiety F41.9 ; Cervicalgia M54.2 ; Moderate episode of recurrent major depressive disorder F33.1 and Encounter for immunization Z23 [place] [id number] [place] [address] Oct, [place] [address] [address] 22 Nov, 2015 [place] [id number] [place] [address] 16 Nov, 2015 [facility] [place] [id number] [place] [address] Oct, [facility] [place] [id number] [place] [address] Sep, [facility] [place] [address] [address] Aug, Low back pain M54.5 ; Anxiety F41.9 ; Primary insomnia F51.01 and Chronic prescription opiate use Z79.899 [facility] [place] [address] [address] Jul, [facility] [place] [address] [facility] [id number] [place] [address] Jul, [facility] [place] [address] [id number] [place] [address] Jul, [facility] [place] [address] [facility] [id number] [place] [address] Jul, [facility] [place] [address] [facility] [id number] [place] [address] Jul, [facility] [place] [address] [id number] [place] [address] June, [facility], [place], [facility] [address] [facility] [id number] [place] [address] June, [facility], [place], [facility] [address] [facility] [id number] [place] [address] June, [facility], [place], [facility] [address] [facility] [id number], [place] [address] June, [facility], [place], [facility] [address] [id number] [address] May, Preoperative cardiovascular examination Z01.810 [facility], [place], [facility] [address] [id number], [place] [address] May, [facility], [place], [facility] [id number], [place] [address] Apr, [facility], [place], [facility] [address] [facility] [id number], [place] [address] Apr, Osteoarthritis of right knee M17.9 [facility], [place], [facility] [address] [id number] [place] [address] 30 May, 2015 [facility], [place], [facility] [address] [facility] [id number] [place] [address] 16 May, 2015 [facility], [place], [facility] [address] [id number], [place] [address] Apr, [facility], [place], [facility] [id number] [place] [address] Apr, [facility], [place], [facility] [id number] [place] [address] Apr, History of excessive cerumen Z78.9 ; Obstructive sleep apnea syndrome G47.33 ; History of diverticulitis Z87.19 and Nephrolithiasis N20.0 [facility], [place], [facility] [facility] [id number] [place] [address] 29 Apr, 2015 [facility] [id number] [place] [address] Apr, Abdominal pain R10.9 [facility] [id number] [place] [address] 10 Apr, 2015 [address] [address] [address] 04 Apr, 2015 Osteoarthritis of right knee M17.9 [place] [facility] [id number] [place] [address] Mar, [facility] [id number] [place] [address] 15 Mar, 2015 [place] [id number] [place] [address] Mar, [facility] [id number] [place] [address] Mar, [facility] [id number] [place] [address] 13 Mar, 2015 Pyelonephritis N12 ; Left-sided thoracic back pain M54.6 ; Hematuria, unspecified R31.9 and Kidney stone N20.0 [place] [id number] [place] [address] 12 Mar, 2015 History of weight loss surgery Z98.84 [place] [address] [place] [address] 07 Mar, 2016 History of weight loss surgery Z98.84 and Hyperlipidemia, unspecified E78.5 [facility] [place] [id number] [place] [address] Mar, 2016 Low back pain M54.5 ; Chronic prescription opiate use Z79.899 ; Hyperlipidemia, unspecified E78.5 ; Spasm of back muscles M62.830 and History of weight loss surgery Z98.84 [facility] [place] [id number] [place] [address] Jan, [facility] [place] [id number] [place] [address] Jan, [facility] [place] [id number] [place] [address] Jan, [facility] [place] [id number] [place] [address] Dec, [facility] [place] [id number] [place] [address] Dec, [facility] [place] [id number] [place] [address] Dec, [facility] [place] [id number] [place] [address] Nov, [facility] [place] [id number] [place] [address] Nov, Obstructive sleep apnea syndrome G47.33 and Pharyngoesophageal dysphagia R13.14 [facility] [place] [id number] [address] Nov, [facility] [place] [id number] [place] [address] Nov, [facility] [place] [address] [address] Nov, [facility] [id number] [place] [phone] 30 Oct, 2014 Dental examination V72.2 [facility] [place] [id number] [place] [address] Oct, [facility] [place] [id number] [place] [address] Oct, [facility] [place] [id number] [place] [address] Oct, [facility] [place] [address] [address] Oct, [facility] [place] [address] [address] Oct, BPH (benign prostatic hyperplasia) 600.00 and Urinary frequency 788.41 [facility] [place] [id number] [place] [address] Oct, [facility] [place] [id number] [place] [address] Oct, [facility] [place] [id number] [place] [address] Oct, [facility] [place] [id number] [place] [address] Sep, Cerumen impaction 380.4 ; Cerumen debris on tympanic membrane 380.4 ; Psoriasis 696.1 and MICKY (secretory otitis media) 381.4 [facility] [id number] [place] [phone] Sep, Dental examination V72.2 [facility] [place] [id number] [place] [address] Sep, Fatigue 780.79 ; Irritable bowel syndrome 564.1 ; Overweight 278.02 ; Poor sleep V69.4 ; Shaking spells 781.0 and Broken tooth 873.63 [facility] [place] [id number] [place] [address] Sep, [facility] [place] [address] [id number] [place] [address] Sep, [facility] [place] [address] [id number] [place] [address] Aug, [facility] [place] [address] [facility] [id number] [place] [address] Jul, [facility] [place] [address] [facility] [id number] [place] [address] Jul, [facility] [place] [address] [facility] [id number] [place] [address] Jul, [facility] [place] [id number] [place] [address] Jul, [facility] [place] [id number] [place] [address] June, Arthritis of knee, right 716.96 [facility] [place] [id number] [place] [address] June, [facility] [place] [id number] [place] [address] June, Elevated blood pressure reading without diagnosis of hypertension 796.2 [facility] [place] [id number] [place] [address] June, [facility] [place] [id number] [place] [address] June, [facility] [place] [id number] [place] [address] June, [facility] [place] [id number] [place] [address] June, [facility] [place] [id number] [place] [address] May, [facility] [place] [id number] [place] [address] 13 May, 2014 [facility] [place] [facility] [address] [id number] [place] [address] 30 Apr, 2014 [facility] [place] [facility] [address] [id number] [place] [address] 30 Apr, 2014 [facility] [place] [facility] [address] [id number] [place] [address] Apr, [facility] [place] [facility] [address] [id number] [place] [address] Apr, [facility] [place] [facility] [address] [id number] [place] [address] Apr, [facility] [place] [facility] [address] [id number] [place] [address] Apr, [facility] [place] [facility] [address] [id number] [place] [address] Apr, [facility] [place] [facility] [address] [id number] [place] [address] Apr, [facility] [place] [facility] [address] [id number] [place] [address] Apr, [facility] [place] [facility] [address] [id number] [place] [address] Apr, [facility] [place] [facility] [address] [id number] [place] [address] Apr, [facility] [place] [facility] [address] [id number] [place] [address] Apr, [facility] [place] [facility] [address] [id number] [place] [address] Apr, [facility] [place] [facility] [address] [id number] [place] [address] Apr, [facility] [place] [facility] [address] [id number] [place] [address] Apr, [facility] [place] [facility] [address] [id number] [place] [address] 23 Apr, 2014 [facility] [place] [facility] [address] [id number] [place] [address] Apr, 2014 [facility] [place] [facility] [address] [id number] [place] [address] 20 Apr, 2014 [facility] [place] [facility] [address] [facility] [id number] [place] [address] 18 Apr, 2014 [facility] [place] [facility] [address] [id number] [place] [address] 18 Apr, 2014 [facility] [place] [facility] [address] [facility] [id number] [place] [address] 13 Apr, 2014 [facility] [place] [facility] [address] [facility] [id number] [place] [address] 13 Apr, 2014 [facility] [place] [facility] [address] [facility] [id number] [place] [address] 13 Apr, 2014 [facility] [place] [facility] [address] [facility] [id number] [place] [address] 13 Apr, 2014 [facility] [place] [facility] [address] [facility] [id number] [place] [address] 12 Apr, 2014 [facility] [place] [facility] [address] [facility] [id number] [place] [address] Apr, 2014 [facility] [place] [facility] [address] [facility] [id number], [place] [address] Apr, 2014 [facility] [place] [facility] [address] [facility] [id number] [place] [address] Apr, 2014 [facility] [place] [facility] [address] [facility] [id number] [place] [address] Apr, 2014 [facility] [place] [facility] [address] [facility] [id number] [place] [address] Apr, 2014 [facility] [place] [facility] [address] [facility] [id number] [place] [address] Apr, [facility] [address] [id number] [place] [address] Apr, [facility] [address] [id number] [place] [address] Apr, [facility] [address] [id number] [place] [address] Mar, [facility] [address] [id number] [place] [address] Mar, [facility] [address] [id number] [place] [address] Mar, [facility] [address] [id number] [place] [address] Mar, [facility] [address] [id number] [place] [address] Mar, [facility] [address] [id number] [place] [address] Mar, [facility] [address] [id number] [place] [address] Mar, [facility] [address] [facility] [id number] [place] [address] Mar, [facility] [address] [id number] [place] [address] Mar, [facility] [address] [id number] [place] [address] Mar, [facility] [place] [facility] [address] [id number] [place] [address] Jan, [facility] [place] [facility] [address] [id number] [place] [address] Jan, [facility] [place] [facility] [address] [id number] [place] [address] Jan, [facility] [place] [facility] [address] [id number] [place] [address] Jan, [facility] [place] [facility] [address] [id number] [place] [address] Jan, [facility] [place] [facility] [address] [id number] [place] [address] Jan, [facility] [place] [facility] [address] [id number] [place] [address] Jan, [facility] [place] [facility] [address] [id number] [place] [address] Jan, [facility] [place] [facility] [address] [id number] [place] [address] Jan, [facility] [place] [facility] [address] [id number] [place] [address] Jan, [facility] [place] [facility] [address] [id number] [place] [address] Jan, [facility] [place] [facility] [address] [id number] [place] [address] Jan, [facility] [place] [facility] [address] [id number] [place] [address] Dec, [facility] [place] [facility] [address] [id number] [place] [address] Dec, [facility] [place] [facility] [address] [id number] [place] [address] Dec, [facility] [place] [facility] [address] [id number] [place] [address] Dec, [facility] [place] [facility] [address] [id number] [place] [address] Dec, [facility] [place] [facility] [address] [id number] [place] [address] Dec, [facility] [place] [facility] [address] [id number], [place] [address] Dec, [facility] [place] [facility] [address] [id number] [place] [address] Dec, [facility] [place] [facility] [address] [id number] [place] [address] Dec, [facility] [place] [facility] [address] [id number] [place] [address] Dec, [facility] [place] [facility] [address] [id number] [place] [address] Nov, [facility] [place] [facility] [address] [id number] [place] [address] Nov, [facility] [place] [facility] [address] [id number] [place] [address] Nov, [facility] [place] [facility] [address] [id number] [place] [address] Nov, [facility] [place] [facility] [address] [id number] [place] [address] Nov, [facility] [place] [facility] [address] [id number] [place] [address] Nov, [facility] [place] [facility] [address] [id number] [place] [address] Nov, [facility] [place] [facility] [address] [id number], [place] [address] Nov, [facility] [place] [facility] [address] [id number], [place] [address] Nov, [facility] [place] [facility] [address] [id number] [place] [address] Nov, [facility] [place] [facility] [address] [id number], [place] [address] Nov, [facility] [place] [facility] [address] [id number] [place] [address] Nov, [facility] [place] [facility] [address] [id number] [place] [address] 14 Nov, 2013 [facility] [place] [facility] [address] [id number] [place] [address] 14 Nov, 2013 [facility] [place] [facility] [address] [id number] [place] [address] 10 Nov, 2013 [facility] [place] [facility] [address] [id number] [place] [address] 10 Nov, 2013 [facility] [place] [facility] [address] [id number] [place] [address] 08 Nov, 2013 [facility] [place] [facility] [address] [id number] [place] [address] Nov, [facility] [place] [facility] [address] [id number] [place] [address] Nov, [facility] [place] [facility] [address] [id number] [place] [address] Nov, [facility] [place] [facility] [address] [id number] [place] [address] 26 Oct, 2013 [facility] [place] [facility] [address] [id number] [place] [address] 26 Oct, 2013 [facility] [place] [facility] [address] [id number] [place] [address] 19 Oct, 2013 [facility] [place] [facility] [address] [id number] [place] [address] 19 Oct, 2013 [facility] [place] [facility] [address] [id number] [place] [address] 12 Oct, 2013 [facility] [place] [facility] [address] [id number] [place] [address] 12 Oct, 2013 [facility] [place] [facility] [address] [id number] [place] [address] 10 Oct, 2013 [facility] [place] [facility] [address] [id number] [place] [address] Oct, [facility] [place] [facility] [address] [id number] [place] [address] Oct, [facility] [place] [facility] [address] [id number] [place] [address] Oct, [facility] [place] [facility] [address] [id number] [place] [address] Sep, [facility] [place] [facility] [address] [id number] [place] [address] Sep, [facility] [place] [facility] [address] [id number] [place] [address] Sep, [facility] [place] [facility] [address] [id number] [place] [address] Sep, [facility] [place] [facility] [address] [id number] [place] [address] Sep, [facility] [place] [facility] [address] [id number] [place] [address] Sep, [facility] [place] [facility] [address] [id number] [place] [address] Sep, [facility] [place] [facility] [address] [id number] [place] [address] Sep, [facility] [place] [facility] [address] [id number] [place] [address] Sep, [facility] [place] [facility] [address] [id number] [place] [address] Sep, [facility] [place] [facility] [address] [id number] [place] [address] Sep, [facility] [place] [facility] [address] [id number] [place] [address] Sep, [facility] [place] [facility] [address] [id number] [place] [address] Sep, [facility] [place] [facility] [address] [id number] [place] [address] Sep, [facility] [place] [facility] [address] [id number] [place] [address] Sep, [facility] [place] [facility] [address] [id number] [place] [address] Sep, [facility] [place] [facility] [address] [id number] [place] [address] Sep, [facility] [place] [facility] [address] [id number] [place] [address] Sep, [facility] [place] [facility] [address] [id number] [place] [address] Sep, [facility] [place] [facility] [address] [id number] [place] [address] Sep, [facility] [place] [facility] [address] [id number] [place] [address] Sep, [facility] [place] [facility] [address] [id number] [place] [address] Sep, [facility] [place] [facility] [address] [id number] [place] [address] Sep, [facility] [place] [facility] [address] [id number] [place] [address] Sep, [facility] [place] [facility] [address] [id number] [place] [address] Sep, [facility] [place] [facility] [address] [id number] [place] [address] Aug, [facility] [place] [facility] [address] [id number] [place] [address] Aug, [facility] [place] [facility] [address] [id number] [place] [address] Aug, [facility] [place] [facility] [address] [id number] [place] [address] Aug, [facility] [place] [facility] [address] [id number] [place] [address] Aug, 2013 [facility] [place] [facility] [address] [id number] [place] [address] Aug, [facility] [place] [facility] [address] [id number] [place] [address] Aug, 2013 [facility] [place] [facility] [address] [id number] [place] [address] Aug, 2013 [facility] [place] [facility] [address] [id number] [place] [address] Aug, [facility] [place] [facility] [address] [id number] [facility] [address] Aug, [facility] [place] [facility] [address] [id number] [place] [address] Aug, [facility] [place] [facility] [address] [id number] [place] [address] Aug, [facility] [place] [facility] [address] [id number] [place] [address] Aug, [facility] [place] [facility] [address] [id number] [place] [address] Jul, [facility] [place] [facility] [address] [id number] [place] [address] Jul, [facility] [place] [facility] [address] [id number] [place] [address] Jul, [facility] [place] [facility] [address] [id number] [place] [address] Jul, [facility] [place] [facility] [address] [id number] [place] [address] Jul, [facility] [place] [facility] [address] [id number] [place] [address] Jul, [facility] [place] [facility] [address] [id number] [place] [address] Jul, [facility] [place] [facility] [address] [id number] [place] [address] June, [facility] [place] [facility] [address] [id number] [place] [address] June, [facility] [place] [facility] [address] [id number] [place] [address] June, [facility] [place] [facility] [address] [id number] [place] [address] June, [facility] [place] [facility] [address] [id number] [place] [address] May, [facility] [place] [facility] [address] [id number] [place] [address] May, [facility] [place] [facility] [address] [id number] [place] [address] May, [facility] [place] [facility] [address] [id number] [place] [address] May, [facility] [place] [facility] [address] [id number] [place] [address] May, [facility] [place] [facility] [address] [id number] [place] [address] May, [facility] [place] [facility] [address] [id number] [place] [address] May, [facility] [place] [facility] [address] [id number], [place] [address] May, [facility] [place] [facility] [address] [id number] [place] [address] May, [facility] [place] [facility] [address] [id number] [place] [address] May, [facility] [place] [facility] [address] [id number] [place] [address] Apr, [facility] [place] [facility] [address] [id number] [place] [address] Apr, [facility] [place] [facility] [address] [id number] [place] [address] Apr, [facility] [place] [facility] [address] [id number] [place] [address] Apr, [facility] [place] [facility] [address] [id number] [place] [address] Apr, [facility] [place] [facility] [address] [id number] [place] [address] Apr, [facility] [place] [facility] [address] [id number] [place] [address] Apr, [facility] [place] [facility] [address] [id number] [place] [address] Apr, [facility] [place] [facility] [address] [id number] [place] [address] Apr, [facility] [place] [facility] [address] [id number] [place] [address] Apr, [facility] [place] [facility] [address] [id number] [place] [address] Mar, [facility] [place] [facility] [address] [id number] [place] [address] Mar, [facility] [place] [facility] [address] [id number] [place] [address] Mar, [facility] [place] [facility] [address] [id number] [place] [address] Mar, [facility] [place] [facility] [address] [id number] [place] [address] Mar, [facility] [place] [facility] [address] [id number] [place] [address] Mar, [facility] [place] [facility] [address] [id number] [place] [address] Jan, [facility] [address] [id number] [place] [address] Jan, [facility] [place] [facility] [address] [id number] [place] [address] Jan, [facility] [place] [facility] [address] [facility] [id number] [place] [address] Jan, [facility] [place] [facility] [address] [id number], [place] [address] Jan, [facility] [address] [id number] [place] [address] Jan, [facility] [place] [facility] [address] [id number] [place] [address] Jan, [facility] [place] [facility] [address] [facility] [id number], [place] [address] Jan, [facility] [place] [facility] [address] [id number], [place] [address] Jan, [facility] [place] [facility] [address] [id number], [place] [address] Dec, [facility] [place] [facility] [address] [id number] [address] Dec, [facility] [place] [facility] [address] [id number], [place] [address] Dec, [facility] [place] [facility] [address] [id number], [place] [address] Dec, [facility] [place] [facility] [address] [id number], [place] [address] Dec, [facility] [place] [facility] [address] [id number], [place] [address] Dec, [facility] [place] [facility] [address] [facility] [id number], [place] [address] Dec, [facility] [place] [facility] [address] [id number] [place] [address] Dec, [facility] [place] [facility] [address] [id number] [place] [address] Dec, [facility] [place] [facility] [address] [id number] [place] [address] Dec, [facility] [place] [facility] [address] [id number] [place] [address] Dec, [facility] [place] [facility] [address] [id number] [place] [address] Nov, [facility] [place] [facility] [address] [id number] [place] [address] Nov, [facility] [place] [facility] [address] [id number] [place] [address] Nov, [facility] [place] [facility] [address] [id number] [place] [address] Nov, [facility] [place] [facility] [address] [id number] [place] [address] Nov, [facility] [place] [facility] [address] [id number] [place] [address] Oct, [facility] [place] [facility] [address] [id number] [place] [address] Oct, [facility] [place] [facility] [address] [id number] [place] [address] Sep, [facility] [place] [facility] [address] [id number] [place] [address] Aug, [facility] [place] [facility] [address] [id number] [place] [address] Aug, [facility] [place] [facility] [address] [id number] [place] [address] Aug, [facility] [place] [facility] [address] [id number] [place] [address] Aug, [facility] [place] [facility] [address] [id number] [place] [address] Jul, [facility] [address] [id number] [place] [address] Jul, [facility] [place] [address] [id number] [place] [address] June, [facility] [address] [id number] [place] [address] June, [facility] [place] [facility] [address] [id number] [place] [address] June, [facility] [address] [id number] [place] [address] May, [facility] [address] [id number] [place] [address] May, [facility] [address] [id number] [place] [address] May, [facility] [address] [id number] [place] [address] Apr, [facility] [address] [id number] [place] [address] 18 Apr, 2012 [facility] [address] [id number] [place] [address] 15 Apr, 2012 [facility] [address] [id number], [place] [address] 14 Apr, 2012 [facility] [address] [id number] [place] [address] Apr, [facility] [place] [facility] [address] [id number] [place] [address] Apr, [facility] [address] [id number] [place] [address] Apr, [facility] [address] [id number], [place] [address] Apr, [facility] [address] [id number] [place] [address] Apr, [facility] [address] [id number] [place] [address] 20 Apr, 2012 [facility] [place] [facility] [address] [id number] [place] [address] 19 Apr, 2012 [facility] [address] [id number] [place] [address] Apr, [facility] [address] [id number] [place] [address] 07 Apr, 2012 [facility] [address] [id number] [place] [address] Mar, [facility] [address] [id number] [place] [address] Mar, [facility] [address] [id number] [place] [address] 16 Mar, 2012 [facility] [address] [id number] [place] [address] Mar, [facility] [address] [id number] [place] [address] Mar, [facility] [address] [id number] [place] [address] Jan, [facility] [address] [id number] [place] [address] Jan, [facility] [place] [facility] [address] [id number] [place] [address] Jan, [facility] [place] [facility] [address] [id number] [place] [address] Jan, [facility] [address] [id number] [place] [address] 14 Jan, 2012 [facility] [place] [facility] [address] [id number] [place] [address] 13 Jan, 2012 [facility] [place] [facility] [address] [id number] [place] [address] 13 Jan, 2012 [facility] [place] [facility] [address] [id number] [place] [address] 11 Jan, 2012 [facility] [place] [facility] [address] [id number] [place] [address] 06 Jan, 2012 [facility] [address] [id number] [place] [address] 06 Jan, 2012 [facility] [place] [facility] [address] [id number] [place] [address] Jan, [facility] [address] [id number] [place] [address] Jan, [facility] [address] [id number] [place] [address] Jan, [facility] [place] [facility] [address] [id number] [place] [address] Jan, [facility] [place] [facility] [address] [id number] [place] [address] Dec, [facility] [place] [facility] [address] [id number] [place] [address] Dec, [facility] [place] [facility] [address] [id number], [place] [address] Dec, [facility] [place] [facility] [address] [id number] [place] [address] Dec, [facility] [place] [facility] [address] [id number] [place] [address] 15 Jan, 2012 [facility] [place] [facility] [address] [id number] [place] [address] 15 Jan, 2012 [facility] [place] [facility] [address] [id number] [place] [address] 14 Jan, 2012 [facility] [place] [facility] [address] [id number] [place] [address] 14 Jan, 2012 [facility] [place] [facility] [address] [id number] [place] [address] 14 Jan, 2012 [facility] [place] [facility] [address] [id number] [place] [address] 14 Jan, 2012 [facility] [place] [facility] [address] [id number] [place] [address] 07 Jan, 2012 [facility] [place] [facility] [address] [id number] [place] [address] 07 Jan, 2012 [facility] [place] [facility] [address] [id number] [place] [address] 16 Dec, 2011 [facility] [place] [facility] [address] [id number] [place] [address] 16 Dec, 2011 [facility] [place] [facility] [address] [id number] [place] [address] 13 Nov, 2011 [facility] [place] [facility] [address] [id number] [place] [address] 13 Nov, 2011 [facility] [place] [facility] [address] [id number] [place] [address] 13 Nov, 2011 [facility] [place] [facility] [address] [id number] [place] [address] 12 Nov, 2011 [facility] [place] [facility] [address] [id number] [place] [address] 30 Oct, 2011 [facility] [place] [facility] [address] [id number] [place] [address] Sep, [facility] [place] [facility] [address] [id number] [place] [address] 23 Aug, 2011 [facility] [place] [facility] [address] [id number] [place] [address] 13 Aug, 2011 [facility] [place] [facility] [address] [id number] [place] [address] Aug, [facility] [address] [id number] [place] [address] Aug, [facility] [address] [id number] [place] [address] June, [facility] [address] [id number] [place] [address] June, [facility] [address] [id number] [place] [address] May, [facility] [address] [id number] [place] [address] Apr, [facility] [address] [id number] [place] [address] Apr, [facility] [address] [id number] [place] [address] Apr, [facility] [address] [id number] [place] [address] Apr, [facility] [address] [id number] [place] [address] Apr, [facility] [address] [id number] [place] [address] Apr, [facility] [address] [id number] [place] [address] Mar, [facility] [address] [id number] [place] [address] Mar, [facility] [place] [facility] [address] [id number] [place] [address] Mar, [facility] [address] [id number] [place] [address] Jan, [facility] [address] [id number] [place] [address] Jan, [facility] [place] [facility] [address] [id number] [place] [address] Jan, [facility] [place] [facility] [address] [id number] [place] [address] Jan, [facility] [place] [facility] [address] [id number] [place] [address] Jan, [facility] [place] [facility] [address] [id number] [place] [address] Jan, [facility] [place] [facility] [address] [id number] [place] [address] Jan, [facility] [place] [facility] [address] [id number] [place] [address] Dec, [facility] [place] [facility] [address] [id number] [place] [address] Dec, [facility] [place] [facility] [address] [id number] [place] [address] Nov, [facility] [place] [facility] [address] [id number] [place] [address] Nov, [facility] [place] [facility] [address] [id number] [place] [address] Nov, [facility] [place] [facility] [address] [id number], [place] [address] Nov, [facility] [place] [facility] [address] [id number], [place] [address] Oct, [facility] [place] [facility] [address] [id number] [place] [address] Sep, [facility] [place] [facility] [address] [id number], [place] [address] Mar, [facility] [place] [facility] [address] [id number] [place] [address] Jan, [facility] [place] [facility] [address] [id number] [place] [address] 09 Dec, 2009 [facility] [address] [id number] [place] [address] 06 Dec, 2009 [facility] [place] [facility] [address] [id number] [place] [address] 04 Dec, 2009 [facility] [place] [facility] [address] [id number] [place] [address] Dec, [facility] [place] [facility] [address] [id number] [place] [address] 26 Nov, 2009 [facility] [place] [facility] [address] [id number] [place] [address] 15 Nov, 2009 [facility] [place] [facility] [address] [id number] [place] [address] 14 Nov, 2009 [facility] [place] [facility] [address] [id number] [place] [address] 14 Nov, 2009 [facility] [place] [facility] [address] [id number] [place] [address] 13 Oct, 2009 [facility] [place] [facility] [address] [id number] [place] [address] 17 Jul, 2009 [facility] [place] [facility] [address] [facility] [id number] [place] [address] June, [facility] [place] [facility] [address] [id number] [place] [address] 14 Jun, 2009 [facility] [place] [facility] [address] [id number], [place] [address] Apr, [facility] [place] [facility] [address] [id number] [place] [address] Mar, [facility] [place] [facility] [address] [id number] [place] [address] Jan, [facility] [place] [facility] [address] [id number], [place] [address] Jan, [facility] [place] [address] [id number], [place] [address] Dec, [facility] [place] [id number], [place] [address] Dec, [facility] [place] [id number], [place] [address] Dec, [facility] [place] [id number] [place] [address] Dec, [facility] [place] [id number], [place] [address] Nov, [facility] [place] [id number] [place] [address] Jul, [facility] [place] [id number], [place] [address] June, IMMUNIZATIONS No Known Immunizations SOCIAL HISTORY Never Assessed REASON FOR VISIT EMR-[facility] [place] [facility] PLAN OF CARE VITAL SIGNS MEDICATIONS Unknown Medications RESULTS No Results PROCEDURES No Known procedures INSTRUCTIONS MEDICATIONS ADMINISTERED No Known Medications MEDICAL (GENERAL) HISTORY Type Description Date Medical History hypertension Medical History sleep apnea-did not tolerate CPAP Medical History oxygen dependent at [facility] Medical History colonic polyps Medical History hyperlipidemia [...]
--- OUTSIDE RECORDS SUMMARY | 2018-08-23 17:12 | XMS REPORT ---
Author Author Migration, Doctor Organization [facility] Address Unknown Phone Unavailable Care Team Providers Care [employer] Name Role Phone Migration, Doctor Unavailable Unavailable PROBLEMS Type Condition ICD9-CM Code UVQ86-RM Code Onset Dates Condition Status SNOMED Code Problem Pulmonary asbestosis J61 Active 97063128 Problem Renal cyst, left N28.1 Active 19913009 Problem Left ventricular diastolic dysfunction I51.9 Active 350874565 Problem Urge incontinence N39.41 Active 020676408 Problem Anxiety F41.9 Active 38982961 Problem Low back pain M54.5 Active 711698555 Problem Age-related osteoporosis without current pathological fracture M81.0 Active 09703632 Problem History of diverticulitis Z87.19 Active 432455407411195 Problem Allergic rhinitis, unspecified allergic rhinitis type J30.9 Active 11130040 Problem Nephrolithiasis N20.0 Active 80292586 Problem Nocturnal hypoxia G47.34 Active 150835129 Problem Psoriasis L40.9 Active 0722163 Problem Essential hypertension I10 Active 78180321 Problem Chronic gout, unspecified cause, unspecified site M1A.9XX0 Active 15128975 Problem Esophageal stricture K22.2 Active 46936619 Problem Obstructive sleep apnea syndrome G47.33 Active 33476734 Problem History of weight loss surgery Z98.84 Active 950126445 Problem 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 Active 87369202 Problem Chronic prescription opiate use Z79.899 Active 070661620 Problem Moderate episode of recurrent major depressive disorder F33.1 Active 893555803 Problem Chronic obstructive pulmonary disease, unspecified COPD type J44.9 Active 53443770 Problem Primary insomnia F51.01 Active 475223878 Problem Neuropathy G62.9 Active 449810137 Problem Cervicalgia M54.2 Active 4302293123335 Problem Hyperlipidemia, unspecified E78.5 Active 34421060 Problem Benign prostatic hyperplasia, presence of lower urinary tract symptoms unspecified, unspecified morphology N40.0 Active 263988905 Problem Acute right-sided low back pain with right-sided sciatica M54.41 Active 256664874 Problem Erectile dysfunction due to diseases classified elsewhere N52.1 Active 195994956 Problem Hammertoe of left foot M20.42 Active 348862543 ALLERGIES No Information ENCOUNTERS Encounter Location Date Diagnosis [facility] [id number] [place] [address] May, [facility] [facility] [id number] [place] [address] May, [facility] [address] [address] May, [facility] [facility] [address] [address] Apr, Moderate episode of recurrent major depressive disorder F33.1 ; Morbid obesity E66.01 ; Hyperlipidemia, unspecified E78.5 ; Primary insomnia F51.01 and Low back pain M54.5 [facility] [address] [address] Apr, Primary insomnia F51.01 [facility] [facility] [address] [address] Apr, Anxiety F41.9 [facility] [id number] [place] [address] 15 Apr, 2018 Low back pain M54.5 [facility] [facility] [id number] [place] [address] Apr, Anxiety F41.9 [facility] [id number] [place] [address] Mar, Moderate episode of recurrent major depressive disorder F33.1 ; BMI 50.0-59.9, adult Z68.43 ; Anxiety F41.9 and Chronic prescription opiate use Z79.899 [facility] [id number] [place] [address] Mar, Onychomycosis B35.1 ; Neuropathy G62.9 and Impaired circulation I99.9 [facility] [id number] [place] [address] Mar, Low back pain M54.5 [facility] [address] [address] Mar, Anxiety F41.9 [facility] [id number] [place] [address] Jan, BMI 50.0-59.9, adult Z68.43 ; Chronic obstructive pulmonary disease, unspecified COPD type J44.9 ; Low back pain M54.5 and Moderate episode of recurrent major depressive disorder F33.1 [facility] [address] [address] Jan, [facility] [address] [address] Jan, [facility] [address] [address] Dec, Anxiety F41.9 [facility] [id number] [place] [address] Dec, [facility] [address] [address] Dec, Anxiety F41.9 [facility] [id number] [place] [address] Dec, [facility] [id number] [place] [address] Dec, Encounter for immunization Z23 [facility] [id number] [place] [address] Dec, [facility] [address] [address] Dec, Hammertoe of left foot M20.42 ; Edema of left foot R60.0 and Onychomycosis B35.1 [facility] [address] [place] [address] Nov, BMI 50.0-59.9, adult Z68.43 [facility] [address] [address] Nov, [facility] [id number] [place] [address] Nov, [facility] [address] [address] Nov, Anxiety F41.9 [facility] [address] [address] Oct, [facility] [address] [address] Oct, [facility] [address] [address] Oct, BMI 45.0-49.9, adult Z68.42 ; Essential hypertension I10 ; Hyperlipidemia, unspecified E78.5 ; Anxiety F41.9 ; Obstructive sleep apnea syndrome G47.33 ; Moderate episode of recurrent major depressive disorder F33.1 ; Left ventricular diastolic dysfunction I51.9 ; Acute pain of right shoulder M25.511 ; Pain of left foot M79.672 and Pain in right foot M79.671 [facility] [id number] [place] [address] Oct, Anxiety F41.9 [facility] [id number] [place] [address] Sep, Left foot pain M79.672 [facility] [id number] [place] [address] Sep, [facility] [id number] [place] [address] Sep, Anxiety F41.9 [facility] [id number] [place] [address] Sep, [facility] [address] [address] Aug, [facility] [id number] [place] [address] Aug, [facility] [id number] [place] [address] Aug, Anxiety F41.9 [facility] [id number] [place] [address] Aug, [facility] [id number] [place] [address] Jul, [facility] [id number] [place] [address] Jul, Anxiety F41.9 [facility] [id number] [place] [address] June, Anxiety F41.9 [facility] [id number] [place] [address] June, [facility] [id number] [place] [address] June, Low back pain M54.5 ; Chronic prescription opiate use Z79.899 ; Candidal intertrigo B37.2 ; Urge incontinence N39.41 ; Essential hypertension I10 ; Moderate episode of recurrent major depressive disorder F33.1 ; Age-related osteoporosis without current pathological fracture M81.0 and BMI 45.0-49.9, adult Z68.42 [facility] [address] [address] June, [facility] [id number] [place] [address] May, Anxiety F41.9 [facility] [id number] [place] [address] May, [facility] [id number] [place] [address] May, [facility] [id number] [place] [address] Apr, Anxiety F41.9 [facility] [id number] [place] [address] Apr, [facility] [address] [address] Apr, Low back pain M54.5 [facility] [address] [address] Apr, [facility] [address] [address] Apr, [facility] [id number] [place] [address] Apr, Anxiety F41.9 [facility] [id number] [place] [address] Apr, Right groin pain R10.31 [facility] [id number] [place] [address] Mar, [facility] [id number] [place] [address] Mar, [facility] [id number] [place] [address] Mar, Anxiety F41.9 [facility] [id number] [place] [address] Mar, Low back pain M54.5 [facility] [address] [address] Mar, Right groin pain R10.31 ; Low back pain M54.5 and BMI 45.0-49.9, adult Z68.42 [facility] [address] [address] Mar, [facility] [id number] [place] [address] Mar, [facility] [id number] [place] [address] Mar, [facility] [id number] [place] [address] Mar, [facility] [id number] [place] [address] Mar, Cough R05 ; Pneumonia of right lower lobe due to infectious organism J18.1 and Abnormal chest x-ray R93.8 [facility] [id number] [place] [address] Mar, [facility] [id number] [place] [address] Mar, [facility] [id number] [place] [address] Jan, Anxiety F41.9 [facility] [id number] [place] [address] Jan, [facility] [id number] [place] [address] Jan, Moderate episode of recurrent major depressive disorder F33.1 [facility] [id number] [place] [address] Jan, Subacromial bursitis of right shoulder joint M75.51 ; Shortness of breath on exertion R06.02 and BMI 45.0-49.9, adult Z68.42 [facility] [id number] [place] [address] Dec, Anxiety F41.9 [facility] [id number] [place] [address] Dec, [facility] [id number] [place] [address] Dec, Low back pain M54.5 [facility] [id number] [place] [address] Oct, Low back pain M54.5 [facility] [id number] [place] [address] Sep, [facility] [id number] [place] [address] Sep, Erectile dysfunction due to diseases classified elsewhere N52.1 [facility] [id number] [place] [address] Sep, Erectile dysfunction due to diseases classified elsewhere N52.1 [facility] [id number] [place] [address] Sep, [facility] [id number] [place] [address] Sep, Erectile dysfunction due to diseases classified elsewhere N52.1 [facility] [id number] [place] [address] Sep, Low back pain M54.5 and Anxiety F41.9 [facility] [id number] [place] [address] Aug, Acute allergic rhinitis J30.9 [facility] [id number] [place] [address] Aug, [facility] [id number] [place] [address] Aug, Anxiety F41.9 [facility] [id number] [place] [address] 15 Jul, 2016 Low back pain M54.5 ; Chronic prescription opiate use Z79.899 and Essential hypertension I10 [facility] [id number] [place] [address] Jul, Anxiety F41.9 and Low back pain M54.5 [facility] [address] [address] June, [facility] [id number] [place] [address] June, Anxiety F41.9 [facility] [id number] [place] [address] May, Low back pain M54.5 [facility] [id number] [place] [address] May, [facility] [id number] [place] [address] May, Anxiety F41.9 [facility] [id number] [place] [address] Apr, [facility] [id number] [place] [address] Apr, Low back pain M54.5 [facility] [id number] [place] [address] Apr, Moderate episode of recurrent major depressive disorder F33.1 [facility] [id number] [place] [address] Apr, Anxiety F41.9 [facility] [id number] [place] [address] Apr, Low back pain M54.5 [facility] [address] [place] [address] 15 Apr, 2016 Elevated alkaline phosphatase level R74.8 [facility] [id number] [place] [address] 10 Apr, 2016 Alkaline phosphatase elevation R74.8 [facility] [id number] [place] [address] 06 Apr, 2016 Anxiety F41.9 [facility] [id number] [place] [address] 03 Apr, 2016 Low back pain M54.5 [facility] [id number] [place] [address] 03 Apr, 2016 History of weight loss surgery Z98.84 ; Encounter for hepatitis C screening test for low risk patient Z11.59 ; History of herpes genitalis Z86.19 ; Essential hypertension I10 ; Hyperlipidemia, unspecified E78.5 ; Exposure to STD Z20.2 and Benign prostatic hyperplasia, presence of lower urinary tract symptoms unspecified, unspecified morphology N40.0 [facility] [id number] [place] [address] 02 Apr, 2016 [place] [id number] [place] [address] Mar, [facility] [id number] [place] [address] Mar, [facility] [id number] [place] [address] Mar, [facility] [id number] [place] [address] Mar, Acute right-sided low back pain with right-sided sciatica M54.41 [facility] [id number] [place] [address] Mar, Low back pain M54.5 [facility] [id number] [place] [address] Mar, Muscle strain of chest wall, initial encounter S29.011A ; Muscle strain of right thigh, initial encounter S76.911A and Acute non-recurrent maxillary sinusitis J01.00 [facility] [id number] [place] [address] Mar, Benign prostatic hyperplasia, presence of lower urinary tract symptoms unspecified, unspecified morphology N40.0 [place] [facility] [id number] [place] [address] Jan, Low back pain M54.5 [facility] [id number] [place] [address] Jan, Low back pain M54.5 ; Essential hypertension I10 ; Hyperlipidemia, unspecified E78.5 ; Anxiety F41.9 ; Moderate episode of recurrent major depressive disorder F33.1 ; Primary insomnia F51.01 ; Exposure to STD Z20.2 ; Encounter for hepatitis C screening test for low risk patient Z11.59 and History of herpes genitalis Z86.19 [facility] [address] [address] 17 Jan, 2016 [facility] [address] [address] 20 Dec, 2015 [place] [address] [address] 14 Dec, 2015 Anxiety F41.9 ; Cervicalgia M54.2 ; Moderate episode of recurrent major depressive disorder F33.1 and Encounter for immunization Z23 [facility] [id number] [place] [address] Oct, [facility] [facility] [address] [address] 22 Nov, 2015 [place] [id number] [place] [address] 16 Nov, 2015 [facility] [id number] [place] [address] Oct, [facility] [id number] [place] [address] Sep, [facility] [address] [address] Aug, Low back pain M54.5 ; Anxiety F41.9 ; Primary insomnia F51.01 and Chronic prescription opiate use Z79.899 [facility] [address] [address] Jul, [facility] [address] [facility] [id number] [place] [address] Jul, [facility] [address] [id number] [place] [address] Jul, [facility] [address] [facility] [id number] [place] [address] Jul, [facility] [address] [facility] [id number] [place] [address] Jul, [facility] [address] [id number] [place] [address] June, [facility] [address] [facility] [id number] [place] [address] June, [facility] [address] [facility] [id number] [place] [address] June, [facility] [address] [facility] [id number] [address] June, [facility] [id number] [address] May, Preoperative cardiovascular examination Z01.810 [facility] [id number] [address] May, [facility] [address] [place] [address] Apr, [facility] [address] [facility] [id number], [place] [address] Apr, Osteoarthritis of right knee M17.9 [facility] [id number] [address] 30 May, 2015 [facility] [address] [facility] [id number] [place] [address] 16 May, 2015 [facility] [id number] [address] Apr, [facility] [id number] [place] [address] Apr, [facility] [id number] [place] [address] Apr, History of excessive cerumen Z78.9 ; Obstructive sleep apnea syndrome G47.33 ; History of diverticulitis Z87.19 and Nephrolithiasis N20.0 [facility] [id number] [place] [address] 29 Apr, 2015 [facility] [id number] [place] [address] Apr, Abdominal pain R10.9 [facility] [facility] [id number] [place] [address] 10 Apr, 2015 [place] [address] [address] 04 Apr, 2015 Osteoarthritis of right knee M17.9 [facility] [id number] [place] [address] Mar, [facility] [facility] [id number] [place] [address] 15 Mar, 2015 [place] [id number] [place] [address] Mar, [facility] [facility] [id number] [place] [address] Mar, [facility] [id number] [place] [address] 13 Mar, 2015 Pyelonephritis N12 ; Left-sided thoracic back pain M54.6 ; Hematuria, unspecified R31.9 and Kidney stone N20.0 [facility] [id number] [place] [phone] 12 Mar, 2015 History of weight loss surgery Z98.84 [facility] [address] [place] [address] 07 Mar, 2016 History of weight loss surgery Z98.84 and Hyperlipidemia, unspecified E78.5 [facility] [id number] [place] [phone] Mar, 2016 Low back pain M54.5 ; Chronic prescription opiate use Z79.899 ; Hyperlipidemia, unspecified E78.5 ; Spasm of back muscles M62.830 and History of weight loss surgery Z98.84 [facility] [id number] [place] [phone] Jan, [facility] [id number] [place] [phone] Jan, [facility] [id number] [place] [phone] Jan, [facility] [id number] [place] [phone] Dec, [facility] [id number] [place] [phone] Dec, [facility] [id number] [place] [phone] Dec, [facility] [id number] [place] [phone] Nov, [facility] [id number] [place] [phone] Nov, Obstructive sleep apnea syndrome G47.33 and Pharyngoesophageal dysphagia R13.14 [facility] [address] [id number] [address] Nov, [facility] [id number] [place] [address] Nov, [facility] [id number], [place] [address] Nov, [facility] [id number] [place] [id number] 30 Oct, 2014 Dental examination V72.2 [facility] [id number] [place] [address] Oct, [facility] [id number] [place] [address] Oct, [facility] [id number] [place] [address] Oct, [facility] [address] [address] Oct, [facility] [address] [address] Oct, BPH (benign prostatic hyperplasia) 600.00 and Urinary frequency 788.41 [facility] [id number] [place] [address] Oct, [facility] [id number] [place] [address] Oct, [facility] [id number] [place] [address] Oct, [facility] [id number] [place] [address] Sep, Cerumen impaction 380.4 ; Cerumen debris on tympanic membrane 380.4 ; Psoriasis 696.1 and MICKY (secretory otitis media) 381.4 [facility] [id number] [place] [id number] Sep, Dental examination V72.2 [facility] [id number] [place] [address] Sep, Fatigue 780.79 ; Irritable bowel syndrome 564.1 ; Overweight 278.02 ; Poor sleep V69.4 ; Shaking spells 781.0 and Broken tooth 873.63 [facility] [id number] [place] [address] Sep, [facility] [address] [id number] [place] [address] Sep, [facility] [address] [id number] [place] [address] Aug, [facility] [address] [facility] [id number] [place] [address] Jul, [facility] [address] [facility] [id number] [place] [address] Jul, [facility] [address] [facility] [id number] [place] [address] Jul, [facility] [address] [address] Jul, [facility] [address] [address] June, Arthritis of knee, right 716.96 [facility] [address] [address] June, [facility] [id number] [address] June, Elevated blood pressure reading without diagnosis of hypertension 796.2 [facility] [id number] [address] June, [facility] [address] [address] June, [facility] [address] [id number] [address] June, [facility] [address] [address] June, [facility] [address] [id number] [address] May, [facility] [address] [address] 13 May, 2014 [facility] [place] [facility] [address] [id number] [place] [address] 30 Apr, 2014 [facility] [place] [facility] [address] [id number] [place] [address] 30 Apr, 2014 [facility] [place] [facility] [address] [id number] [place] [address] Apr, [facility] [place] [facility] [address] [id number] [place] [address] Apr, [facility] [place] [facility] [address] [id number] [place] [address] Apr, [facility] [place] [facility] [address] [id number] [place] [address] Apr, [facility] [place] [facility] [address] [id number] [place] [address] Apr, [facility] [place] [facility] [address] [id number] [place] [address] Apr, [facility] [place] [facility] [address] [id number] [place] [address] Apr, [facility] [place] [facility] [address] [id number] [place] [address] Apr, [facility] [place] [facility] [address] [id number] [place] [address] Apr, [facility] [place] [facility] [address] [id number] [place] [address] Apr, [facility] [place] [facility] [address] [id number] [place] [address] Apr, [facility] [place] [facility] [address] [id number] [place] [address] Apr, [facility] [place] [facility] [address] [id number] [place] [address] Apr, [facility] [place] [facility] [address] [id number] [place] [address] 23 Apr, 2014 [facility] [place] [facility] [address] [id number] [place] [address] Apr, 2014 [facility] [place] [facility] [address] [id number] [place] [address] 20 Apr, 2014 [facility] [place] [facility] [address] [facility] [id number] [place] [address] 18 Apr, 2014 [facility] [place] [facility] [address] [id number] [place] [address] 18 Apr, 2014 [facility] [place] [facility] [address] [facility] [id number] [place] [address] 13 Apr, 2014 [facility] [place] [facility] [address] [facility] [id number] [place] [address] 13 Apr, 2014 [facility] [place] [facility] [address] [facility] [id number] [place] [address] 13 Apr, 2014 [facility] [place] [facility] [address] [facility] [id number] [place] [address] 13 Apr, 2014 [facility] [place] [facility] [address] [facility] [id number] [place] [address] 12 Apr, 2014 [facility] [place] [facility] [address] [facility] [id number] [place] [address] Apr, 2014 [facility] [place] [facility] [address] [facility] [id number] [address] Apr, 2014 [facility] [place] [facility] [address] [facility] [id number] [place] [address] Apr, 2014 [facility] [place] [facility] [address] [facility] [id number] [place] [address] Apr, 2014 [facility] [place] [facility] [address] [facility] [id number] [place] [address] Apr, 2014 [facility] [place] [facility] [address] [facility] [id number] [place] [address] Apr, [facility] [address] [id number] [place] [address] Apr, [facility] [address] [id number] [place] [address] Apr, [facility] [address] [id number] [place] [address] Mar, [facility] [address] [id number] [place] [address] Mar, [facility] [address] [id number] [place] [address] Mar, [facility] [address] [id number] [place] [address] Mar, [facility] [address] [id number] [place] [address] Mar, [facility] [address] [id number] [place] [address] Mar, [facility] [address] [id number] [place] [address] Mar, [facility] [address] [facility] [id number] [place] [address] Mar, [facility] [address] [id number] [place] [address] Mar, [facility] [address] [id number] [place] [address] Mar, [facility] [place] [facility] [address] [id number] [place] [address] Jan, [facility] [place] [facility] [address] [id number] [place] [address] Jan, [facility] [place] [facility] [address] [id number] [place] [address] Jan, [facility] [place] [facility] [address] [id number] [place] [address] Jan, [facility] [place] [facility] [address] [id number] [place] [address] Jan, [facility] [place] [facility] [address] [id number] [place] [address] Jan, [facility] [place] [facility] [address] [id number] [place] [address] Jan, [facility] [place] [facility] [address] [id number] [place] [address] Jan, [facility] [place] [facility] [address] [id number] [place] [address] Jan, [facility] [place] [facility] [address] [id number] [place] [address] Jan, [facility] [place] [facility] [address] [id number] [place] [address] Jan, [facility] [place] [facility] [address] [id number] [place] [address] Jan, [facility] [place] [facility] [address] [id number] [place] [address] Dec, [facility] [place] [facility] [address] [id number] [place] [address] Dec, [facility] [place] [facility] [address] [id number] [place] [address] Dec, [facility] [place] [facility] [address] [id number] [place] [address] Dec, [facility] [place] [facility] [address] [id number] [place] [address] Dec, [facility] [place] [facility] [address] [id number] [place] [address] Dec, [facility] [place] [facility] [address] [id number] [address] Dec, [facility] [place] [facility] [address] [id number] [place] [address] Dec, [facility] [place] [facility] [address] [id number] [place] [address] Dec, [facility] [place] [facility] [address] [id number] [place] [address] Dec, [facility] [place] [facility] [address] [id number] [place] [address] Nov, [facility] [place] [facility] [address] [id number] [place] [address] Nov, [facility] [place] [facility] [address] [id number] [place] [address] Nov, [facility] [place] [facility] [address] [id number] [place] [address] Nov, [facility] [place] [facility] [address] [id number] [place] [address] Nov, [facility] [place] [facility] [address] [id number] [place] [address] Nov, [facility] [place] [facility] [address] [id number] [place] [address] Nov, [facility] [place] [facility] [address] [id number], [place] [address] Nov, [facility] [place] [facility] [address] [id number], [place] [address] Nov, [facility] [place] [facility] [address] [id number] [place] [address] Nov, [facility] [place] [facility] [address] [id number], [place] [address] Nov, [facility] [place] [facility] [address] [id number] [place] [address] Nov, [facility] [place] [facility] [address] [id number] [place] [address] 14 Nov, 2013 [facility] [place] [facility] [address] [id number] [place] [address] 14 Nov, 2013 [facility] [place] [facility] [address] [id number] [place] [address] 10 Nov, 2013 [facility] [place] [facility] [address] [id number] [place] [address] 10 Nov, 2013 [facility] [place] [facility] [address] [id number] [place] [address] 08 Nov, 2013 [facility] [place] [facility] [address] [id number] [place] [address] Nov, [facility] [place] [facility] [address] [id number] [place] [address] Nov, [facility] [place] [facility] [address] [id number] [place] [address] Nov, [facility] [place] [facility] [address] [id number] [place] [address] 26 Oct, 2013 [facility] [place] [facility] [address] [id number] [place] [address] 26 Oct, 2013 [facility] [place] [facility] [address] [id number] [place] [address] 19 Oct, 2013 [facility] [place] [facility] [address] [id number] [place] [address] 19 Oct, 2013 [facility] [place] [facility] [address] [id number] [place] [address] 12 Oct, 2013 [facility] [place] [facility] [address] [id number] [place] [address] 12 Oct, 2013 [facility] [place] [facility] [address] [id number] [place] [address] 10 Oct, 2013 [facility] [place] [facility] [address] [id number] [place] [address] Oct, [facility] [place] [facility] [address] [id number] [place] [address] Oct, [facility] [place] [facility] [address] [id number] [place] [address] Oct, [facility] [place] [facility] [address] [id number] [place] [address] Sep, [facility] [place] [facility] [address] [id number] [place] [address] Sep, [facility] [place] [facility] [address] [id number] [place] [address] Sep, [facility] [place] [facility] [address] [id number] [place] [address] Sep, [facility] [place] [facility] [address] [id number] [place] [address] Sep, [facility] [place] [facility] [address] [id number] [place] [address] Sep, [facility] [place] [facility] [address] [id number] [place] [address] Sep, [facility] [place] [facility] [address] [id number] [place] [address] Sep, [facility] [place] [facility] [address] [id number] [place] [address] Sep, [facility] [place] [facility] [address] [id number] [place] [address] Sep, [facility] [place] [facility] [address] [id number] [place] [address] Sep, [facility] [place] [facility] [address] [id number] [place] [address] Sep, [facility] [place] [facility] [address] [id number] [place] [address] Sep, [facility] [place] [facility] [address] [id number] [place] [address] Sep, [facility] [place] [facility] [address] [id number] [place] [address] Sep, [facility] [place] [facility] [address] [id number] [place] [address] Sep, [facility] [place] [facility] [address] [id number] [place] [address] Sep, [facility] [place] [facility] [address] [id number] [place] [address] Sep, [facility] [place] [facility] [address] [id number] [place] [address] Sep, [facility] [place] [facility] [address] [id number] [place] [address] Sep, [facility] [place] [facility] [address] [id number] [place] [address] Sep, [facility] [place] [facility] [address] [id number] [place] [address] Sep, [facility] [place] [facility] [address] [id number] [place] [address] Sep, [facility] [place] [facility] [address] [id number] [place] [address] Sep, [facility] [place] [facility] [address] [id number] [place] [address] Sep, [facility] [place] [facility] [address] [id number] [place] [address] Aug, [facility] [place] [facility] [address] [id number] [place] [address] Aug, [facility] [place] [facility] [address] [id number] [place] [address] Aug, [facility] [place] [facility] [address] [id number] [place] [address] Aug, [facility] [place] [facility] [address] [id number] [place] [address] Aug, 2013 [facility] [place] [facility] [address] [id number] [place] [address] Aug, [facility] [place] [facility] [address] [id number] [place] [address] Aug, 2013 [facility] [place] [facility] [address] [id number] [place] [address] Aug, 2013 [facility] [place] [facility] [address] [id number] [place] [address] Aug, [facility] [place] [facility] [address] [id number] [facility] [place] [address] Aug, [facility] [place] [facility] [address] [id number] [place] [address] Aug, [facility] [place] [facility] [address] [id number] [place] [address] Aug, [facility] [place] [facility] [address] [id number] [place] [address] Aug, [facility] [place] [facility] [address] [id number] [place] [address] Jul, [facility] [place] [facility] [address] [id number] [place] [address] Jul, [facility] [place] [facility] [address] [id number] [place] [address] Jul, [facility] [place] [facility] [address] [id number] [place] [address] Jul, [facility] [place] [facility] [address] [id number] [place] [address] Jul, [facility] [place] [facility] [address] [id number] [place] [address] Jul, [facility] [place] [facility] [address] [id number] [place] [address] Jul, [facility] [place] [facility] [address] [id number] [place] [address] June, [facility] [place] [facility] [address] [id number] [place] [address] June, [facility] [place] [facility] [address] [id number] [place] [address] June, [facility] [place] [facility] [address] [id number] [place] [address] June, [facility] [place] [facility] [address] [id number] [place] [address] May, [facility] [place] [facility] [address] [id number] [place] [address] May, [facility] [place] [facility] [address] [id number] [place] [address] May, [facility] [place] [facility] [address] [id number] [place] [address] May, [facility] [place] [facility] [address] [id number] [place] [address] May, [facility] [place] [facility] [address] [id number] [place] [address] May, [facility] [place] [facility] [address] [id number] [place] [address] May, [facility] [place] [facility] [address] [id number], [place] [address] May, [facility] [place] [facility] [address] [id number] [place] [address] May, [facility] [place] [facility] [address] [id number] [place] [address] May, [facility] [place] [facility] [address] [id number] [place] [address] Apr, [facility] [place] [facility] [address] [id number] [place] [address] Apr, [facility] [place] [facility] [address] [id number] [place] [address] Apr, [facility] [place] [facility] [address] [id number] [place] [address] Apr, [facility] [place] [facility] [address] [id number] [place] [address] Apr, [facility] [place] [facility] [address] [id number] [place] [address] Apr, [facility] [place] [facility] [address] [id number] [place] [address] Apr, [facility] [place] [facility] [address] [id number] [place] [address] Apr, [facility] [place] [facility] [address] [id number] [place] [address] Apr, [facility] [place] [facility] [address] [id number] [place] [address] Apr, [facility] [place] [facility] [address] [id number] [place] [address] Mar, [facility] [place] [facility] [address] [id number] [place] [address] Mar, [facility] [place] [facility] [address] [id number] [place] [address] Mar, [facility] [place] [facility] [address] [id number] [place] [address] Mar, [facility] [place] [facility] [address] [id number] [place] [address] Mar, [facility] [place] [facility] [address] [id number] [place] [address] Mar, [facility] [place] [facility] [address] [id number] [place] [address] Jan, [facility] [address] [id number] [place] [address] Jan, [facility] [place] [facility] [address] [id number] [place] [address] Jan, [facility] [place] [facility] [address] [facility] [id number] [place] [address] Jan, [facility] [place] [facility] [address] [id number], [place] [address] Jan, [facility] [address] [id number] [place] [address] Jan, [facility] [place] [facility] [address] [id number] [place] [address] Jan, [facility] [place] [facility] [address] [facility] [id number], [place] [address] Jan, [facility] [place] [facility] [address] [id number], [place] [address] Jan, [facility] [place] [facility] [address] [id number], [place] [address] Dec, [facility] [place] [facility] [address] [id number], [place] [address] Dec, [facility] [place] [facility] [address] [id number], [place] [address] Dec, [facility] [place] [facility] [address] [id number], [place] [address] Dec, [facility] [place] [facility] [address] [id number], [place] [address] Dec, [facility] [place] [facility] [address] [id number], [place] [address] Dec, [facility] [place] [facility] [address] [facility] [id number], [place] [address] Dec, [facility] [place] [facility] [address] [id number] [place] [address] Dec, [facility] [place] [facility] [address] [id number] [place] [address] Dec, [facility] [place] [facility] [address] [id number] [place] [address] Dec, [facility] [place] [facility] [address] [id number] [place] [address] Dec, [facility] [place] [facility] [address] [id number] [place] [address] Nov, [facility] [place] [facility] [address] [id number] [place] [address] Nov, [facility] [place] [facility] [address] [id number] [place] [address] Nov, [facility] [place] [facility] [address] [id number] [place] [address] Nov, [facility] [place] [facility] [address] [id number] [place] [address] Nov, [facility] [place] [facility] [address] [id number] [place] [address] Oct, [facility] [place] [facility] [address] [id number] [place] [address] Oct, [facility] [place] [facility] [address] [id number] [place] [address] Sep, [facility] [place] [facility] [address] [id number] [place] [address] Aug, [facility] [place] [facility] [address] [id number] [place] [address] Aug, [facility] [place] [facility] [address] [id number] [place] [address] Aug, [facility] [place] [facility] [address] [id number] [place] [address] Aug, [facility] [place] [facility] [address] [id number] [place] [address] Jul, [facility] [address] [id number] [place] [address] Jul, [facility] [address] [id number] [place] [address] June, [facility] [address] [id number] [place] [address] June, [facility] [address] [id number] [place] [address] June, [facility] [address] [id number] [place] [address] May, [facility] [address] [id number] [place] [address] May, [facility] [address] [id number] [place] [address] May, [facility] [address] [id number] [place] [address] Apr, [facility] [address] [id number] [place] [address] 18 Apr, 2012 [facility] [address] [id number] [place] [address] 15 Apr, 2012 [facility] [address] [id number], [place] [address] 14 Apr, 2012 [facility] [address] [id number] [place] [address] Apr, [facility] [place] [facility] [address] [id number] [place] [address] Apr, [facility] [address] [id number] [place] [address] Apr, [facility] [address] [id number], [place] [address] Apr, [facility] [address] [id number] [place] [address] Apr, [facility] [address] [id number] [place] [address] 20 Apr, 2012 [facility] [address] [id number] [place] [address] 19 Apr, 2012 [facility] [address] [id number] [place] [address] Apr, [facility] [address] [id number] [place] [id number] 07 Apr, 2012 [facility] [address] [id number] [place] [address] Mar, [facility] [address] [id number] [place] [address] Mar, [facility] [address] [id number] [place] [address] 16 Mar, 2012 [facility] [address] [id number] [place] [address] Mar, [facility] [address] [id number] [place] [address] Mar, [facility] [address] [id number] [place] [address] Jan, [facility] [address] [id number] [place] [address] Jan, [facility] [place] [facility] [address] [id number] [place] [address] Jan, [facility] [place] [facility] [address] [id number] [place] [address] Jan, [facility] [address] [id number] [place] [address] 14 Jan, 2012 [facility] [place] [facility] [address] [id number] [place] [address] 13 Jan, 2012 [facility] [place] [facility] [address] [id number] [place] [address] 13 Jan, 2012 [facility] [place] [facility] [address] [id number] [place] [address] 11 Jan, 2012 [facility] [place] [facility] [address] [id number] [place] [address] 06 Jan, 2012 [facility] [address] [id number] [place] [address] 06 Jan, 2012 [facility] [place] [facility] [address] [id number] [place] [address] Jan, [facility] [address] [id number] [place] [address] Jan, [facility] [address] [id number] [place] [address] Jan, [facility] [place] [facility] [address] [id number] [place] [address] Jan, [facility] [place] [facility] [address] [id number] [place] [address] Dec, [facility] [place] [facility] [address] [id number] [place] [address] Dec, [facility] [place] [facility] [address] [id number], [place] [address] Dec, [facility] [place] [facility] [address] [id number] [place] [address] Dec, [facility] [place] [facility] [address] [id number] [place] [address] 15 Jan, 2012 [facility] [place] [facility] [address] [id number] [place] [address] 15 Jan, 2012 [facility] [place] [facility] [address] [id number] [place] [address] 14 Jan, 2012 [facility] [place] [facility] [address] [id number] [place] [address] 14 Jan, 2012 [facility] [place] [facility] [address] [id number] [place] [address] 14 Jan, 2012 [facility] [place] [facility] [address] [id number] [place] [address] 14 Jan, 2012 [facility] [place] [facility] [address] [id number] [place] [address] 07 Jan, 2012 [facility] [place] [facility] [address] [id number] [place] [address] 07 Jan, 2012 [facility] [place] [facility] [address] [id number] [place] [address] 16 Dec, 2011 [facility] [place] [facility] [address] [id number] [place] [address] 16 Dec, 2011 [facility] [place] [facility] [address] [id number] [place] [address] 13 Nov, 2011 [facility] [place] [facility] [address] [id number] [place] [address] 13 Nov, 2011 [facility] [place] [facility] [address] [id number] [place] [address] 13 Nov, 2011 [facility] [place] [facility] [address] [id number] [place] [address] 12 Nov, 2011 [facility] [place] [facility] [address] [id number] [place] [address] 30 Oct, 2011 [facility] [place] [facility] [address] [id number] [place] [address] Sep, [facility] [place] [facility] [address] [id number] [place] [address] 23 Aug, 2011 [facility] [place] [facility] [address] [id number] [place] [address] 13 Aug, 2011 [facility] [place] [facility] [address] [id number] [place] [address] Aug, [facility] [address] [id number] [place] [address] Aug, [facility] [address] [id number] [place] [address] June, [facility] [address] [id number] [place] [address] June, [facility] [address] [id number] [place] [address] May, [facility] [address] [id number] [place] [address] Apr, [facility] [address] [id number] [place] [address] Apr, [facility] [address] [id number] [place] [address] Apr, [facility] [address] [id number] [place] [address] Apr, [facility] [address] [id number] [place] [address] Apr, [facility] [address] [id number] [place] [address] Apr, [facility] [address] [id number] [place] [address] Mar, [facility] [address] [id number] [place] [address] Mar, [facility] [place] [facility] [address] [id number] [place] [address] Mar, [facility] [address] [id number] [place] [address] Jan, [facility] [address] [id number] [place] [address] Jan, [facility] [place] [facility] [address] [id number] [place] [address] Jan, [facility] [place] [facility] [address] [id number] [place] [address] Jan, [facility] [place] [facility] [address] [id number] [place] [address] Jan, [facility] [place] [facility] [address] [id number] [place] [address] Jan, [facility] [place] [facility] [address] [id number] [place] [address] Jan, [facility] [place] [facility] [address] [id number] [place] [address] Dec, [facility] [place] [facility] [address] [id number] [place] [address] Dec, [facility] [place] [facility] [address] [id number] [place] [address] Nov, [facility] [place] [facility] [address] [id number] [place] [address] Nov, [facility] [place] [facility] [address] [id number] [place] [address] Nov, [facility] [place] [facility] [address] [id number], [place] [address] Nov, [facility] [place] [facility] [address] [id number], [place] [address] Oct, [facility] [place] [facility] [address] [id number] [place] [address] Sep, [facility] [place] [facility] [address] [id number], [place] [address] Mar, [facility] [place] [facility] [address] [id number] [place] [address] Jan, [facility] [place] [facility] [address] [id number] [place] [address] 09 Dec, 2009 [facility] [address] [id number] [place] [address] 06 Dec, 2009 [facility] [place] [facility] [address] [id number] [place] [address] 04 Dec, 2009 [facility] [place] [facility] [address] [id number] [place] [address] Dec, [facility] [place] [facility] [address] [id number] [place] [address] 26 Nov, 2009 [facility] [place] [facility] [address] [id number] [place] [address] 15 Nov, 2009 [facility] [place] [facility] [address] [id number] [place] [address] 14 Nov, 2009 [facility] [place] [facility] [address] [id number] [place] [address] 14 Nov, 2009 [facility] [place] [facility] [address] [id number] [place] [address] 13 Oct, 2009 [facility] [place] [facility] [address] [id number] [place] [address] 17 Jul, 2009 [facility] [place] [facility] [address] [facility] [id number] [place] [address] June, [facility] [place] [facility] [address] [id number] [place] [address] 14 Jun, 2009 [facility] [place] [facility] [address] [id number], [place] [address] Apr, [facility] [place] [facility] [address] [id number] [place] [address] Mar, [facility] [place] [facility] [address] [id number] [place] [address] Jan, [facility] [place] [facility] [address] [id number], [place] [address] Jan, [facility] [address] [id number], [place] [address] Dec, [facility] [id number], [place] [address] Dec, [facility] [id number], [place] [address] Dec, [facility] [id number] [place] [address] Dec, [facility] [id number], [place] [address] Nov, [facility] [id number] [place] [address] Jul, [facility] [id number], [place] [address] June, IMMUNIZATIONS No Known Immunizations SOCIAL HISTORY Never Assessed REASON FOR VISIT EMR-[facility] [place] PLAN OF CARE VITAL SIGNS MEDICATIONS Unknown Medications RESULTS No Results PROCEDURES No Known procedures INSTRUCTIONS MEDICATIONS ADMINISTERED No Known Medications MEDICAL (GENERAL) HISTORY Type Description Date Medical History hypertension Medical History sleep apnea-did not tolerate CPAP Medical History oxygen dependent at [facility] Medical History colonic polyps Medical History [...]
--- OUTSIDE RECORDS SUMMARY | 2018-08-23 17:13 | XMS REPORT ---
Author Author Migration, Doctor Organization [facility] Address Unknown Phone Unavailable Care Team Providers Care Geography Faculty Member Name Role Phone Migration, Doctor Unavailable Unavailable PROBLEMS Type Condition ICD9-CM Code RUR02-LL Code Onset Dates Condition Status SNOMED Code Problem Pulmonary asbestosis J61 Active 88435491 Problem Renal cyst, left N28.1 Active 82314008 Problem Left ventricular diastolic dysfunction I51.9 Active 436441244 Problem Urge incontinence N39.41 Active 348210337 Problem Anxiety F41.9 Active 52796391 Problem Low back pain M54.5 Active 509345062 Problem Age-related osteoporosis without current pathological fracture M81.0 Active 88357866 Problem History of diverticulitis Z87.19 Active 958620778566862 Problem Allergic rhinitis, unspecified allergic rhinitis type J30.9 Active 70676237 Problem Nephrolithiasis N20.0 Active 66487782 Problem Nocturnal hypoxia G47.34 Active 165170775 Problem Psoriasis L40.9 Active 1538673 Problem Essential hypertension I10 Active 20603663 Problem Chronic gout, unspecified cause, unspecified site M1A.9XX0 Active 19321721 Problem Esophageal stricture K22.2 Active 26025404 Problem Obstructive sleep apnea syndrome G47.33 Active 47535202 Problem History of weight loss surgery Z98.84 Active 291856375 Problem 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 Active 84790211 Problem Chronic prescription opiate use Z79.899 Active 441655672 Problem Moderate episode of recurrent major depressive disorder F33.1 Active 132168081 Problem Chronic obstructive pulmonary disease, unspecified COPD type J44.9 Active 34327226 Problem Primary insomnia F51.01 Active 396039429 Problem Neuropathy G62.9 Active 170242621 Problem Cervicalgia M54.2 Active 9284616260323 Problem Hyperlipidemia, unspecified E78.5 Active 92622135 Problem Benign prostatic hyperplasia, presence of lower urinary tract symptoms unspecified, unspecified morphology N40.0 Active 965145162 Problem Acute right-sided low back pain with right-sided sciatica M54.41 Active 054095674 Problem Erectile dysfunction due to diseases classified elsewhere N52.1 Active 468277515 Problem Hammertoe of left foot M20.42 Active 583819250 ALLERGIES No Information ENCOUNTERS Encounter Location Date Diagnosis [facility] [id number] [place] [address] May, [facility] [facility] [id number] [place] [address] May, [facility] [facility] [address] [address] May, [place] [facility] [address] [address] Apr, Moderate episode of recurrent major depressive disorder F33.1 ; Morbid obesity E66.01 ; Hyperlipidemia, unspecified E78.5 ; Primary insomnia F51.01 and Low back pain M54.5 [facility] [facility] [address] [address] Apr, Primary insomnia F51.01 [facility] [facility] [address] [address] Apr, Anxiety F41.9 [facility] [id number] [place] [address] 15 Apr, 2018 Low back pain M54.5 [place] [facility] [id number] [place] [address] Apr, Anxiety F41.9 [facility] [facility] [id number] [place] [address] Mar, Moderate episode of recurrent major depressive disorder F33.1 ; BMI 50.0-59.9, adult Z68.43 ; Anxiety F41.9 and Chronic prescription opiate use Z79.899 [facility] [id number] [place] [address] Mar, Onychomycosis B35.1 ; Neuropathy G62.9 and Impaired circulation I99.9 [facility] [id number] [place] [address] Mar, Low back pain M54.5 [facility] [address] [address] Mar, Anxiety F41.9 [facility] [id number] [place] [address] Jan, BMI 50.0-59.9, adult Z68.43 ; Chronic obstructive pulmonary disease, unspecified COPD type J44.9 ; Low back pain M54.5 and Moderate episode of recurrent major depressive disorder F33.1 [facility] [address] [address] Jan, [facility] [address] [address] Jan, [facility] [address] [address] Dec, Anxiety F41.9 [facility] [id number] [place] [address] Dec, [facility] [address] [address] Dec, Anxiety F41.9 [facility] [id number] [place] [address] Dec, [facility] [id number] [place] [address] Dec, Encounter for immunization Z23 [facility] [id number] [place] [address] Dec, [facility] [address] [address] Dec, Hammertoe of left foot M20.42 ; Edema of left foot R60.0 and Onychomycosis B35.1 [facility] [address] [place] [address] Nov, BMI 50.0-59.9, adult Z68.43 [facility] [address] [address] Nov, [facility] [id number] [place] [address] Nov, [facility] [address] [address] Nov, Anxiety F41.9 [facility] [address] [address] Oct, [facility] [address] [address] Oct, [facility] [address] [address] Oct, BMI 45.0-49.9, adult Z68.42 ; Essential hypertension I10 ; Hyperlipidemia, unspecified E78.5 ; Anxiety F41.9 ; Obstructive sleep apnea syndrome G47.33 ; Moderate episode of recurrent major depressive disorder F33.1 ; Left ventricular diastolic dysfunction I51.9 ; Acute pain of right shoulder M25.511 ; Pain of left foot M79.672 and Pain in right foot M79.671 [facility] [id number] [place] [address] Oct, Anxiety F41.9 [facility] [id number] [place] [address] Sep, Left foot pain M79.672 [facility] [id number] [place] [address] Sep, [facility] [id number] [place] [address] Sep, Anxiety F41.9 [facility] [id number] [place] [address] Sep, [facility] [address], [place] [address] Aug, [facility] [id number] [place] [address] Aug, [facility] [id number] [place] [address] Aug, Anxiety F41.9 [facility] [id number] [place] [address] Aug, [facility] [id number] [place] [address] Jul, [facility] [id number] [place] [address] Jul, Anxiety F41.9 [facility] [id number] [place] [address] June, Anxiety F41.9 [facility] [id number] [place] [address] June, [facility] [id number] [place] [address] June, Low back pain M54.5 ; Chronic prescription opiate use Z79.899 ; Candidal intertrigo B37.2 ; Urge incontinence N39.41 ; Essential hypertension I10 ; Moderate episode of recurrent major depressive disorder F33.1 ; Age-related osteoporosis without current pathological fracture M81.0 and BMI 45.0-49.9, adult Z68.42 [facility] [address], [place] [address] June, [facility] [id number] [place] [address] May, Anxiety F41.9 [facility] [id number] [place] [address] May, [facility] [id number] [place] [address] May, [facility] [id number] [place] [address] Apr, Anxiety F41.9 [facility] [id number] [place] [address] Apr, [facility] [address] [address] Apr, Low back pain M54.5 [facility] [address] [address] Apr, [facility] [address] [address] Apr, [facility] [id number] [place] [address] Apr, Anxiety F41.9 [facility] [id number] [place] [address] Apr, Right groin pain R10.31 [facility] [id number] [place] [address] Mar, [facility] [id number] [place] [address] Mar, [facility] [id number] [place] [address] Mar, Anxiety F41.9 [facility] [id number] [place] [address] Mar, Low back pain M54.5 [facility] [address] [address] Mar, Right groin pain R10.31 ; Low back pain M54.5 and BMI 45.0-49.9, adult Z68.42 [facility] [address] [address] Mar, [facility] [address] [place] [address] Mar, [facility] [id number] [place] [address] Mar, [facility] [id number] [place] [address] Mar, [facility] [id number] [place] [address] Mar, Cough R05 ; Pneumonia of right lower lobe due to infectious organism J18.1 and Abnormal chest x-ray R93.8 [facility] [id number] [place] [address] Mar, [facility] [facility] [id number] [place] [address] Mar, [facility] [id number] [place] [address] Jan, Anxiety F41.9 [facility] [id number] [place] [address] Jan, [facility] [id number] [place] [address] Jan, Moderate episode of recurrent major depressive disorder F33.1 [facility] [id number] [place] [address] Jan, Subacromial bursitis of right shoulder joint M75.51 ; Shortness of breath on exertion R06.02 and BMI 45.0-49.9, adult Z68.42 [facility] [facility] [id number] [place] [address] Dec, Anxiety F41.9 [facility] [id number] [place] [address] Dec, [facility] [id number] [place] [address] Dec, Low back pain M54.5 [facility] [address] [place] [address] Oct, Low back pain M54.5 [facility] [id number] [place] [address] Sep, [facility] [id number] [place] [address] Sep, Erectile dysfunction due to diseases classified elsewhere N52.1 [facility] [id number] [place] [address] Sep, Erectile dysfunction due to diseases classified elsewhere N52.1 [facility] [id number] [place] [address] Sep, [facility] [id number] [place] [address] Sep, Erectile dysfunction due to diseases classified elsewhere N52.1 [facility] [id number] [place] [address] Sep, Low back pain M54.5 and Anxiety F41.[address] [facility] [id number] [place] [address] Aug, Acute allergic rhinitis J30.9 [facility] [address] [place] [address] Aug, [facility] [id number] [place] [address] Aug, Anxiety F41.9 [facility] [id number] [place] [address] 15 Jul, 2016 Low back pain M54.5 ; Chronic prescription opiate use Z79.899 and Essential hypertension I10 [facility] [address] [place] [address] Jul, Anxiety F41.9 and Low back pain M54.5 [facility] [address], [place] [address] June, [facility] [id number] [place] [address] June, Anxiety F41.9 [facility] [address] [place] [address] May, Low back pain M54.5 [facility] [id number] [place] [address] May, [facility] [id number] [place] [address] May, Anxiety F41.9 [facility] [id number] [place] [address] Apr, [facility] [id number] [place] [address] Apr, Low back pain M54.5 [facility] [address] [place] [address] Apr, Moderate episode of recurrent major depressive disorder F33.1 [facility] [id number] [place] [address] Apr, Anxiety F41.9 [facility] [address] [place] [address] Apr, Low back pain M54.5 [facility] [address] [place] [address] 15 Apr, 2016 Elevated alkaline phosphatase level R74.8 [facility] [id number] [place] [address] 10 Apr, 2016 Alkaline phosphatase elevation R74.8 [facility] [address] [place] [address] 06 Apr, 2016 Anxiety F41.9 [facility] [id number] [place] [address] 03 Apr, 2016 Low back pain M54.5 [facility] [id number] [place] [address] 03 Apr, 2016 History of weight loss surgery Z98.84 ; Encounter for hepatitis C screening test for low risk patient Z11.59 ; History of herpes genitalis Z86.19 ; Essential hypertension I10 ; Hyperlipidemia, unspecified E78.5 ; Exposure to STD Z20.2 and Benign prostatic hyperplasia, presence of lower urinary tract symptoms unspecified, unspecified morphology N40.0 [facility] [id number] [place] [address] 02 Apr, 2016 [place] [id number] [place] [address] Mar, [facility] [facility] [id number] [place] [address] Mar, [facility] [id number] [place] [address] Mar, [facility] [id number] [place] [address] Mar, Acute right-sided low back pain with right-sided sciatica M54.41 [facility] [id number] [place] [address] Mar, Low back pain M54.[address] [facility] [id number] [place] [address] Mar, Muscle strain of chest wall, initial encounter S29.011A ; Muscle strain of right thigh, initial encounter S76.911A and Acute non-recurrent maxillary sinusitis J01.00 [place] [id number] [place] [address] Mar, Benign prostatic hyperplasia, presence of lower urinary tract symptoms unspecified, unspecified morphology N40.0 [facility] [id number] [place] [address] Jan, Low back pain M54.5 [facility] [id number] [place] [address] Jan, Low back pain M54.5 ; Essential hypertension I10 ; Hyperlipidemia, unspecified E78.5 ; Anxiety F41.9 ; Moderate episode of recurrent major depressive disorder F33.1 ; Primary insomnia F51.01 ; Exposure to STD Z20.2 ; Encounter for hepatitis C screening test for low risk patient Z11.59 and History of herpes genitalis Z86.19 [facility] [address] [address] 17 Jan, 2016 [facility] [address] [address] 20 Dec, 2015 [place] [address] [address] 14 Dec, 2015 Anxiety F41.9 ; Cervicalgia M54.2 ; Moderate episode of recurrent major depressive disorder F33.1 and Encounter for immunization Z23 [facility] [facility] [id number] [place] [address] Oct, [facility] [facility] [address] [address] 22 Nov, 2015 [place] [id number] [place] [address] 16 Nov, 2015 [facility] [id number] [place] [address] Oct, [facility] [id number] [place] [address] Sep, [facility] [address] [address] Aug, Low back pain M54.5 ; Anxiety F41.9 ; Primary insomnia F51.01 and Chronic prescription opiate use Z79.899 [facility] [address] [address] Jul, [facility] [address] [facility] [id number] [place] [address] Jul, [facility] [address] [id number] [place] [address] Jul, [facility] [address] [facility] [id number] [place] [address] Jul, [facility] [address] [facility] [id number] [place] [address] Jul, [facility] [address] [id number] [place] [address] June, [facility] [address] [facility] [id number] [place] [address] June, [facility] [address] [facility] [id number] [place] [address] June, [facility] [address] [facility] [id number] [address] June, [facility] [id number] [address] May, Preoperative cardiovascular examination Z01.810 [facility] [id number] [address] May, [facility] [address], [place] [address] Apr, [facility] [address] [facility] [id number], [place] [address] Apr, Osteoarthritis of right knee M17.9 [facility] [id number] [place] [address] 30 May, 2015 [facility] [address] [facility] [id number] [place] [address] 16 May, 2015 [facility] [id number], [place] [address] Apr, [facility] [id number] [place] [address] Apr, [facility] [id number] [place] [address] Apr, History of excessive cerumen Z78.9 ; Obstructive sleep apnea syndrome G47.33 ; History of diverticulitis Z87.19 and Nephrolithiasis N20.0 [facility] [id number] [place] [address] 29 Apr, 2015 [facility] [id number] [place] [address] Apr, Abdominal pain R10.9 [place] [id number] [place] [address] 10 Apr, 2015 [place] [address] [address] 04 Apr, 2015 Osteoarthritis of right knee M17.9 [place] [id number] [place] [address] Mar, [place] [id number] [place] [address] 15 Mar, 2015 [place] [id number] [place] [address] Mar, [place] [id number] [place] [address] Mar, [facility] [id number] [place] [address] 13 Mar, 2015 Pyelonephritis N12 ; Left-sided thoracic back pain M54.6 ; Hematuria, unspecified R31.9 and Kidney stone N20.0 [place] [id number] [place] [address] 12 Mar, 2015 History of weight loss surgery Z98.84 [place] [address] [place] [address] 07 Mar, 2016 History of weight loss surgery Z98.84 and Hyperlipidemia, unspecified E78.5 [facility] [id number] [place] [address] Mar, 2016 Low back pain M54.5 ; Chronic prescription opiate use Z79.899 ; Hyperlipidemia, unspecified E78.5 ; Spasm of back muscles M62.830 and History of weight loss surgery Z98.84 [facility] [id number] [place] [address] Jan, [facility] [id number] [place] [address] Jan, [facility] [id number] [place] [address] Jan, [facility] [id number] [place] [address] Dec, [facility] [id number] [place] [address] Dec, [facility] [id number] [place] [address] Dec, [facility] [id number] [place] [address] Nov, [facility] [id number] [place] [address] Nov, Obstructive sleep apnea syndrome G47.33 and Pharyngoesophageal dysphagia R13.14 [facility] [id number] [address] Nov, [facility] [id number] [place] [address] Nov, [facility] [address] [place] [address] Nov, [facility] [id number] [place] [id number] 30 Oct, 2014 Dental examination V72.2 [facility] [id number] [place] [address] Oct, [facility] [id number] [place] [address] Oct, [facility] [id number] [place] [address] Oct, [facility] [address] [address] Oct, [facility] [address] [address] Oct, BPH (benign prostatic hyperplasia) 600.00 and Urinary frequency 788.41 [facility] [address] [id number] [place] [address] Oct, [facility] [id number] [place] [address] Oct, [facility] [id number] [place] [address] Oct, [facility] [id number] [place] [address] Sep, Cerumen impaction 380.4 ; Cerumen debris on tympanic membrane 380.4 ; Psoriasis 696.1 and MICKY (secretory otitis media) 381.4 [facility] [id number] [place] [id number] Sep, Dental examination V72.2 [facility] [id number] [place] [address] Sep, Fatigue 780.79 ; Irritable bowel syndrome 564.1 ; Overweight 278.02 ; Poor sleep V69.4 ; Shaking spells 781.0 and Broken tooth 873.63 [facility] [id number] [place] [address] Sep, [facility] [address] [id number] [place] [address] Sep, [facility] [address] [id number] [place] [address] Aug, [facility] [address] [facility] [id number] [place] [address] Jul, [facility] [address] [facility] [id number] [place] [address] Jul, [facility] [address] [facility] [id number] [place] [address] Jul, [facility] [id number] [place] [address] Jul, [facility] [id number] [place] [address] June, Arthritis of knee, right 716.96 [facility] [id number] [place] [address] June, [facility] [id number] [place] [address] June, Elevated blood pressure reading without diagnosis of hypertension 796.2 [facility] [id number] [place] [address] June, [facility] [id number] [place] [address] June, [facility] [address] [id number] [place] [address] June, [facility] [id number] [place] [address] June, [facility] [address] [id number] [place] [address] May, [facility] [id number] [place] [address] 13 May, 2014 [facility] [place] [facility] [address] [id number] [place] [address] 30 Apr, 2014 [facility] [place] [facility] [address] [id number] [place] [address] 30 Apr, 2014 [facility] [place] [facility] [address] [id number] [place] [address] Apr, [facility] [place] [facility] [address] [id number] [place] [address] Apr, [facility] [place] [facility] [address] [id number] [place] [address] Apr, [facility] [place] [facility] [address] [id number] [place] [address] Apr, [facility] [place] [facility] [address] [id number] [place] [address] Apr, [facility] [place] [facility] [address] [id number] [place] [address] Apr, [facility] [place] [facility] [address] [id number] [place] [address] Apr, [facility] [place] [facility] [address] [id number] [place] [address] Apr, [facility] [place] [facility] [address] [id number] [place] [address] Apr, [facility] [place] [facility] [address] [id number] [place] [address] Apr, [facility] [place] [facility] [address] [id number] [place] [address] Apr, [facility] [place] [facility] [address] [id number] [place] [address] Apr, [facility] [place] [facility] [address] [id number] [place] [address] Apr, [facility] [place] [facility] [address] [id number] [place] [address] 23 Apr, 2014 [facility] [place] [facility] [address] [id number] [place] [address] Apr, 2014 [facility] [place] [facility] [address] [id number] [place] [address] 20 Apr, 2014 [facility] [place] [facility] [address] [facility] [id number] [place] [address] 18 Apr, 2014 [facility] [place] [facility] [address] [id number] [place] [address] 18 Apr, 2014 [facility] [place] [facility] [address] [facility] [id number] [place] [address] 13 Apr, 2014 [facility] [place] [facility] [address] [facility] [id number] [place] [address] 13 Apr, 2014 [facility] [place] [facility] [address] [facility] [id number] [place] [address] 13 Apr, 2014 [facility] [place] [facility] [address] [facility] [id number] [place] [address] 13 Apr, 2014 [facility] [place] [facility] [address] [facility] [id number] [place] [address] 12 Apr, 2014 [facility] [place] [facility] [address] [facility] [id number] [place] [address] Apr, 2014 [facility] [place] [facility] [address] [facility] [id number] [address] Apr, 2014 [facility] [place] [facility] [address] [facility] [id number] [place] [address] Apr, 2014 [facility] [place] [facility] [address] [facility] [id number] [place] [address] Apr, 2014 [facility] [place] [facility] [address] [facility] [id number] [place] [address] Apr, 2014 [facility] [place] [facility] [address] [facility] [id number] [place] [address] Apr, [facility] [address] [id number] [place] [address] Apr, [facility] [address] [id number] [place] [address] Apr, [facility] [address] [id number] [place] [address] Mar, [facility] [address] [id number] [place] [address] Mar, [facility] [address] [id number] [place] [address] Mar, [facility] [address] [id number] [place] [address] Mar, [facility] [address] [id number] [place] [address] Mar, [facility] [address] [id number] [place] [address] Mar, [facility] [address] [id number] [place] [address] Mar, [facility] [address] [facility] [id number] [place] [address] Mar, [facility] [address] [id number] [place] [address] Mar, [facility] [address] [id number] [place] [address] Mar, [facility] [place] [facility] [address] [id number] [place] [address] Jan, [facility] [place] [facility] [address] [id number] [place] [address] Jan, [facility] [place] [facility] [address] [id number] [place] [address] Jan, [facility] [place] [facility] [address] [id number] [place] [address] Jan, [facility] [place] [facility] [address] [id number] [place] [address] Jan, [facility] [place] [facility] [address] [id number] [place] [address] Jan, [facility] [place] [facility] [address] [id number] [place] [address] Jan, [facility] [place] [facility] [address] [id number] [place] [address] Jan, [facility] [place] [facility] [address] [id number] [place] [address] Jan, [facility] [place] [facility] [address] [id number] [place] [address] Jan, [facility] [place] [facility] [address] [id number] [place] [address] Jan, [facility] [place] [facility] [address] [id number] [place] [address] Jan, [facility] [place] [facility] [address] [id number] [place] [address] Dec, [facility] [place] [facility] [address] [id number] [place] [address] Dec, [facility] [place] [facility] [address] [id number] [place] [address] Dec, [facility] [place] [facility] [address] [id number] [place] [address] Dec, [facility] [place] [facility] [address] [id number] [place] [address] Dec, [facility] [place] [facility] [address] [id number] [place] [address] Dec, [facility] [place] [facility] [address] [id number], [place] [address] Dec, [facility] [place] [facility] [address] [id number] [place] [address] Dec, [facility] [place] [facility] [address] [id number] [place] [address] Dec, [facility] [place] [facility] [address] [id number] [place] [address] Dec, [facility] [place] [facility] [address] [id number] [place] [address] Nov, [facility] [place] [facility] [address] [id number] [place] [address] Nov, [facility] [place] [facility] [address] [id number] [place] [address] Nov, [facility] [place] [facility] [address] [id number] [place] [address] Nov, [facility] [place] [facility] [address] [id number] [place] [address] Nov, [facility] [place] [facility] [address] [id number] [place] [address] Nov, [facility] [place] [facility] [address] [id number] [place] [address] Nov, [facility] [place] [facility] [address] [id number], [place] [address] Nov, [facility] [place] [facility] [address] [id number], [place] [address] Nov, [facility] [place] [facility] [address] [id number] [place] [address] Nov, [facility] [place] [facility] [address] [id number], [place] [address] Nov, [facility] [place] [facility] [address] [id number] [place] [address] Nov, [facility] [place] [facility] [address] [id number] [place] [address] 14 Nov, 2013 [facility] [place] [facility] [address] [id number] [place] [address] 14 Nov, 2013 [facility] [place] [facility] [address] [id number] [place] [address] 10 Nov, 2013 [facility] [place] [facility] [address] [id number] [place] [address] 10 Nov, 2013 [facility] [place] [facility] [address] [id number] [place] [address] 08 Nov, 2013 [facility] [place] [facility] [address] [id number] [place] [address] Nov, [facility] [place] [facility] [address] [id number] [place] [address] Nov, [facility] [place] [facility] [address] [id number] [place] [address] Nov, [facility] [place] [facility] [address] [id number] [place] [address] 26 Oct, 2013 [facility] [place] [facility] [address] [id number] [place] [address] 26 Oct, 2013 [facility] [place] [facility] [address] [id number] [place] [address] 19 Oct, 2013 [facility] [place] [facility] [address] [id number] [place] [address] 19 Oct, 2013 [facility] [place] [facility] [address] [id number] [place] [address] 12 Oct, 2013 [facility] [place] [facility] [address] [id number] [place] [address] 12 Oct, 2013 [facility] [place] [facility] [address] [id number] [place] [address] 10 Oct, 2013 [facility] [place] [facility] [address] [id number] [place] [address] Oct, [facility] [place] [facility] [address] [id number] [place] [address] Oct, [facility] [place] [facility] [address] [id number] [place] [address] Oct, [facility] [place] [facility] [address] [id number] [place] [address] Sep, [facility] [place] [facility] [address] [id number] [place] [address] Sep, [facility] [place] [facility] [address] [id number] [place] [address] Sep, [facility] [place] [facility] [address] [id number] [place] [address] Sep, [facility] [place] [facility] [address] [id number] [place] [address] Sep, [facility] [place] [facility] [address] [id number] [place] [address] Sep, [facility] [place] [facility] [address] [id number] [place] [address] Sep, [facility] [place] [facility] [address] [id number] [place] [address] Sep, [facility] [place] [facility] [address] [id number] [place] [address] Sep, [facility] [place] [facility] [address] [id number] [place] [address] Sep, [facility] [place] [facility] [address] [id number] [place] [address] Sep, [facility] [place] [facility] [address] [id number] [place] [address] Sep, [facility] [place] [facility] [address] [id number] [place] [address] Sep, [facility] [place] [facility] [address] [id number] [place] [address] Sep, [facility] [place] [facility] [address] [id number] [place] [address] Sep, [facility] [place] [facility] [address] [id number] [place] [address] Sep, [facility] [place] [facility] [address] [id number] [place] [address] Sep, [facility] [place] [facility] [address] [id number] [place] [address] Sep, [facility] [place] [facility] [address] [id number] [place] [address] Sep, [facility] [place] [facility] [address] [id number] [place] [address] Sep, [facility] [place] [facility] [address] [id number] [place] [address] Sep, [facility] [place] [facility] [address] [id number] [place] [address] Sep, [facility] [place] [facility] [address] [id number] [place] [address] Sep, [facility] [place] [facility] [address] [id number] [place] [address] Sep, [facility] [place] [facility] [address] [id number] [place] [address] Sep, [facility] [place] [facility] [address] [id number] [place] [address] Aug, [facility] [place] [facility] [address] [id number] [place] [address] Aug, [facility] [place] [facility] [address] [id number] [place] [address] Aug, [facility] [place] [facility] [address] [id number] [place] [address] Aug, [facility] [place] [facility] [address] [id number] [place] [address] Aug, 2013 [facility] [place] [facility] [address] [id number] [place] [address] Aug, [facility] [place] [facility] [address] [id number] [place] [address] Aug, 2013 [facility] [place] [facility] [address] [id number] [place] [address] Aug, 2013 [facility] [place] [facility] [address] [id number] [place] [address] Aug, [facility] [place] [facility] [address] [id number] [facility] [address] Aug, [facility] [place] [facility] [address] [id number] [place] [address] Aug, [facility] [place] [facility] [address] [id number] [place] [address] Aug, [facility] [place] [facility] [address] [id number] [place] [address] Aug, [facility] [place] [facility] [address] [id number] [place] [address] Jul, [facility] [place] [facility] [address] [id number] [place] [address] Jul, [facility] [place] [facility] [address] [id number] [place] [address] Jul, [facility] [place] [facility] [address] [id number] [place] [address] Jul, [facility] [place] [facility] [address] [id number] [place] [address] Jul, [facility] [place] [facility] [address] [id number] [place] [address] Jul, [facility] [place] [facility] [address] [id number] [place] [address] Jul, [facility] [place] [facility] [address] [id number] [place] [address] June, [facility] [place] [facility] [address] [id number] [place] [address] June, [facility] [place] [facility] [address] [id number] [place] [address] June, [facility] [place] [facility] [address] [id number] [place] [address] June, [facility] [place] [facility] [address] [id number] [place] [address] May, [facility] [place] [facility] [address] [id number] [place] [address] May, [facility] [place] [facility] [address] [id number] [place] [address] May, [facility] [place] [facility] [address] [id number] [place] [address] May, [facility] [place] [facility] [address] [id number] [place] [address] May, [facility] [place] [facility] [address] [id number] [place] [address] May, [facility] [place] [facility] [address] [id number] [place] [address] May, [facility] [place] [facility] [address] [id number], [place] [address] May, [facility] [place] [facility] [address] [id number] [place] [address] May, [facility] [place] [facility] [address] [id number] [place] [address] May, [facility] [place] [facility] [address] [id number] [place] [address] Apr, [facility] [place] [facility] [address] [id number] [place] [address] Apr, [facility] [place] [facility] [address] [id number] [place] [address] Apr, [facility] [place] [facility] [address] [id number] [place] [address] Apr, [facility] [place] [facility] [address] [id number] [place] [address] Apr, [facility] [place] [facility] [address] [id number] [place] [address] Apr, [facility] [place] [facility] [address] [id number] [place] [address] Apr, [facility] [place] [facility] [address] [id number] [place] [address] Apr, [facility] [place] [facility] [address] [id number] [place] [address] Apr, [facility] [place] [facility] [address] [id number] [place] [address] Apr, [facility] [place] [facility] [address] [id number] [place] [address] Mar, [facility] [place] [facility] [address] [id number] [place] [address] Mar, [facility] [place] [facility] [address] [id number] [place] [address] Mar, [facility] [place] [facility] [address] [id number] [place] [address] Mar, [facility] [place] [facility] [address] [id number] [place] [address] Mar, [facility] [place] [facility] [address] [id number] [place] [address] Mar, [facility] [place] [facility] [address] [id number] [place] [address] Jan, [facility] [address] [id number] [place] [address] Jan, [facility] [place] [facility] [address] [id number] [place] [address] Jan, [facility] [place] [facility] [address] [facility] [id number] [place] [address] Jan, [facility] [place] [facility] [address] [id number], [place] [address] Jan, [facility] [address] [id number] [place] [address] Jan, [facility] [place] [facility] [address] [id number] [place] [address] Jan, [facility] [place] [facility] [address] [facility] [id number], [place] [address] Jan, [facility] [place] [facility] [address] [id number], [place] [address] Jan, [facility] [place] [facility] [address] [id number], [place] [address] Dec, [facility] [place] [facility] [address] [id number], [place] [address] Dec, [facility] [place] [facility] [address] [id number], [place] [address] Dec, [facility] [place] [facility] [address] [id number], [place] [address] Dec, [facility] [place] [facility] [address] [id number], [place] [address] Dec, [facility] [place] [facility] [address] [id number], [place] [address] Dec, [facility] [place] [facility] [address] [facility] [id number], [place] [address] Dec, [facility] [place] [facility] [address] [id number] [place] [address] Dec, [facility] [place] [facility] [address] [id number] [place] [address] Dec, [facility] [place] [facility] [address] [id number] [place] [address] Dec, [facility] [place] [facility] [address] [id number] [place] [address] Dec, [facility] [place] [facility] [address] [id number] [place] [address] Nov, [facility] [place] [facility] [address] [id number] [place] [address] Nov, [facility] [place] [facility] [address] [id number] [place] [address] Nov, [facility] [place] [facility] [address] [id number] [place] [address] Nov, [facility] [place] [facility] [address] [id number] [place] [address] Nov, [facility] [place] [facility] [address] [id number] [place] [address] Oct, [facility] [place] [facility] [address] [id number] [place] [address] Oct, [facility] [place] [facility] [address] [id number] [place] [address] Sep, [facility] [place] [facility] [address] [id number] [place] [address] Aug, [facility] [place] [facility] [address] [id number] [place] [address] Aug, [facility] [place] [facility] [address] [id number] [place] [address] Aug, [facility] [place] [facility] [address] [id number] [place] [address] Aug, [facility] [place] [facility] [address] [id number] [place] [address] Jul, [facility] [address] [id number] [place] [address] Jul, [facility] [address] [id number] [place] [address] June, [facility] [address] [id number] [place] [address] June, [facility] [address] [id number] [place] [address] June, [facility] [address] [id number] [place] [address] May, [facility] [address] [id number] [place] [address] May, [facility] [address] [id number] [place] [address] May, [facility] [address] [id number] [place] [address] Apr, [facility] [address] [id number] [place] [address] 18 Apr, 2012 [facility] [address] [id number] [place] [address] 15 Apr, 2012 [facility] [address] [id number], [place] [address] 14 Apr, 2012 [facility] [address] [id number] [place] [address] Apr, [facility] [place] [facility] [address] [id number] [place] [address] Apr, [facility] [address] [id number] [place] [address] Apr, [facility] [address] [id number], [place] [address] Apr, [facility] [address] [id number] [place] [address] Apr, [facility] [address] [id number] [place] [address] 20 Apr, 2012 [facility] [address] [id number] [place] [address] 19 Apr, 2012 [facility] [address] [id number] [place] [address] Apr, [facility] [address] [id number] [place] [address] 07 Apr, 2012 [facility] [address] [id number] [place] [address] Mar, [facility] [facility] [address] [id number] [place] [address] Mar, [facility] [address] [id number] [place] [address] 16 Mar, 2012 [facility] [address] [id number] [place] [address] Mar, [facility] [address] [id number] [place] [address] Mar, [facility] [address] [id number] [place] [address] Jan, [facility] [address] [id number] [place] [address] Jan, [facility] [place] [facility] [address] [id number] [place] [address] Jan, [facility] [place] [facility] [address] [id number] [place] [address] Jan, [facility] [address] [id number] [place] [address] 14 Jan, 2012 [facility] [place] [facility] [address] [id number] [place] [address] 13 Jan, 2012 [facility] [place] [facility] [address] [id number] [place] [address] 13 Jan, 2012 [facility] [place] [facility] [address] [id number] [place] [address] 11 Jan, 2012 [facility] [place] [facility] [address] [id number] [place] [address] 06 Jan, 2012 [facility] [address] [id number] [place] [address] 06 Jan, 2012 [facility] [place] [facility] [address] [id number] [place] [address] Jan, [facility] [address] [id number] [place] [address] Jan, [facility] [address] [id number] [place] [address] Jan, [facility] [place] [facility] [address] [id number] [place] [address] Jan, [facility] [place] [facility] [address] [id number] [place] [address] Dec, [facility] [place] [facility] [address] [id number] [place] [address] Dec, [facility] [place] [facility] [address] [id number], [place] [address] Dec, [facility] [place] [facility] [address] [id number] [place] [address] Dec, [facility] [place] [facility] [address] [id number] [place] [address] 15 Jan, 2012 [facility] [place] [facility] [address] [id number] [place] [address] 15 Jan, 2012 [facility] [place] [facility] [address] [id number] [place] [address] 14 Jan, 2012 [facility] [place] [facility] [address] [id number] [place] [address] 14 Jan, 2012 [facility] [place] [facility] [address] [id number] [place] [address] 14 Jan, 2012 [facility] [place] [facility] [address] [id number] [place] [address] 14 Jan, 2012 [facility] [place] [facility] [address] [id number] [place] [address] 07 Jan, 2012 [facility] [place] [facility] [address] [id number] [place] [address] 07 Jan, 2012 [facility] [place] [facility] [address] [id number] [place] [address] 16 Dec, 2011 [facility] [place] [facility] [address] [id number] [place] [address] 16 Dec, 2011 [facility] [place] [facility] [address] [id number] [place] [address] 13 Nov, 2011 [facility] [place] [facility] [address] [id number] [place] [address] 13 Nov, 2011 [facility] [place] [facility] [address] [id number] [place] [address] 13 Nov, 2011 [facility] [place] [facility] [address] [id number] [place] [address] 12 Nov, 2011 [facility] [place] [facility] [address] [id number] [place] [address] 30 Oct, 2011 [facility] [place] [facility] [address] [id number] [place] [address] Sep, [facility] [place] [facility] [address] [id number] [place] [address] 23 Aug, 2011 [facility] [place] [facility] [address] [id number] [place] [address] 13 Aug, 2011 [facility] [place] [facility] [address] [id number] [place] [address] Aug, [facility] [address] [id number] [place] [address] Aug, [facility] [address] [id number] [place] [address] June, [facility] [address] [id number] [place] [address] June, [facility] [address] [id number] [place] [address] May, [facility] [address] [id number] [place] [address] Apr, [facility] [address] [id number] [place] [address] Apr, [facility] [address] [id number] [place] [address] Apr, [facility] [address] [id number] [place] [address] Apr, [facility] [address] [id number] [place] [address] Apr, [facility] [address] [id number] [place] [address] Apr, [facility] [address] [id number] [place] [address] Mar, [facility] [address] [id number] [place] [address] Mar, [facility] [place] [facility] [address] [id number] [place] [address] Mar, [facility] [address] [id number] [place] [address] Jan, [facility] [address] [id number] [place] [address] Jan, [facility] [place] [facility] [address] [id number] [place] [address] Jan, [facility] [place] [facility] [address] [id number] [place] [address] Jan, [facility] [place] [facility] [address] [id number] [place] [address] Jan, [facility] [place] [facility] [address] [id number] [place] [address] Jan, [facility] [place] [facility] [address] [id number] [place] [address] Jan, [facility] [place] [facility] [address] [id number] [place] [address] Dec, [facility] [place] [facility] [address] [id number] [place] [address] Dec, [facility] [place] [facility] [address] [id number] [place] [address] Nov, [facility] [place] [facility] [address] [id number] [place] [address] Nov, [facility] [place] [facility] [address] [id number] [place] [address] Nov, [facility] [place] [facility] [address] [id number], [place] [address] Nov, [facility] [place] [facility] [address] [id number], [place] [address] Oct, [facility] [place] [facility] [address] [id number] [place] [address] Sep, [facility] [place] [facility] [address] [id number], [place] [address] Mar, [facility] [place] [facility] [address] [id number] [place] [address] Jan, [facility] [place] [facility] [address] [id number] [place] [address] 09 Dec, 2009 [facility] [address] [id number] [place] [address] 06 Dec, 2009 [facility] [place] [facility] [address] [id number] [place] [address] 04 Dec, 2009 [facility] [place] [facility] [address] [id number] [place] [address] Dec, [facility] [place] [facility] [address] [id number] [place] [address] 26 Nov, 2009 [facility] [place] [facility] [address] [id number] [place] [address] 15 Nov, 2009 [facility] [place] [facility] [address] [id number] [place] [address] 14 Nov, 2009 [facility] [place] [facility] [address] [id number] [place] [address] 14 Nov, 2009 [facility] [place] [facility] [address] [id number] [place] [address] 13 Oct, 2009 [facility] [place] [facility] [address] [id number] [place] [address] 17 Jul, 2009 [facility] [place] [facility] [address] [facility] [id number] [place] [address] June, [facility] [place] [facility] [address] [id number] [place] [address] 14 Jun, 2009 [facility] [place] [facility] [address] [id number], [place] [address] Apr, [facility] [place] [facility] [address] [id number] [place] [address] Mar, [facility] [place] [facility] [address] [id number] [place] [address] Jan, [facility] [place] [facility] [address] [id number], [place] [address] Jan, [facility] [address] [id number] [address] Dec, [facility] [id number], [place] [address] Dec, [facility] [id number], [place] [address] Dec, [facility] [id number] [place] [address] Dec, [facility] [id number], [place] [address] Nov, [facility] [id number] [place] [address] Jul, [facility] [id number], [place] [address] June, IMMUNIZATIONS No Known Immunizations SOCIAL HISTORY Never Assessed REASON FOR VISIT EMR-[facility] PLAN OF CARE VITAL SIGNS MEDICATIONS Unknown Medications RESULTS No Results PROCEDURES No Known procedures INSTRUCTIONS MEDICATIONS ADMINISTERED No Known Medications MEDICAL (GENERAL) HISTORY Type Description Date Medical History hypertension Medical History sleep apnea-did not tolerate CPAP Medical History oxygen dependent at [facility] Medical History colonic polyps Medical [...]
--- OUTSIDE RECORDS SUMMARY | 2018-08-23 17:15 | XMS REPORT ---
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 Name Role Phone Migration, Doctor Unavailable Unavailable PROBLEMS Type Condition ICD9-CM Code QTW38-MH Code Onset Dates Condition Status SNOMED Code Problem Pulmonary asbestosis J61 Active 53476063 Problem Renal cyst, left N28.1 Active 78204767 Problem Left ventricular diastolic dysfunction I51.9 Active 116004272 Problem Urge incontinence N39.41 Active 411800668 Problem Anxiety F41.9 Active 50038722 Problem Low back pain M54.5 Active 862734778 Problem Age-related osteoporosis without current pathological fracture M81.0 Active 27792212 Problem History of diverticulitis Z87.19 Active 367209796522756 Problem Allergic rhinitis, unspecified allergic rhinitis type J30.9 Active 65362817 Problem Nephrolithiasis N20.0 Active 94661111 Problem Nocturnal hypoxia G47.34 Active 642554755 Problem Psoriasis L40.9 Active 5340022 Problem Essential hypertension I10 Active 99717582 Problem Chronic gout, unspecified cause, unspecified site M1A.9XX0 Active 83448999 Problem Esophageal stricture K22.2 Active 12981577 Problem Obstructive sleep apnea syndrome G47.33 Active 36239953 Problem History of weight loss surgery Z98.84 Active 288074695 Problem 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 Active 79705834 Problem Chronic prescription opiate use Z79.899 Active 386046853 Problem Moderate episode of recurrent major depressive disorder F33.1 Active 817396517 Problem Chronic obstructive pulmonary disease, unspecified COPD type J44.9 Active 54790713 Problem Primary insomnia F51.01 Active 831187717 Problem Neuropathy G62.9 Active 224918276 Problem Cervicalgia M54.2 Active 6888163455042 Problem Hyperlipidemia, unspecified E78.5 Active 51581383 Problem Benign prostatic hyperplasia, presence of lower urinary tract symptoms unspecified, unspecified morphology N40.0 Active 602513412 Problem Acute right-sided low back pain with right-sided sciatica M54.41 Active 471160794 Problem Erectile dysfunction due to diseases classified elsewhere N52.1 Active 272846995 Problem Hammertoe of left foot M20.42 Active 536133355 ALLERGIES No Information ENCOUNTERS Encounter Location Date Diagnosis [place] [id number] [place] [address] May, [place] [address] [address] Apr, [place] [address] [address] Apr, Anxiety F41.9 [place] [address] [address] Apr, Low back pain M54.5 [place] [address] [address] Apr, Anxiety F41.9 [place] [address] [address] Mar, Moderate episode of recurrent major depressive disorder F33.1 ; BMI 50.0-59.9, adult Z68.43 ; Anxiety F41.9 and Chronic prescription opiate use Z79.899 [place] [id number] [place] [address] Mar, Onychomycosis B35.1 ; Neuropathy G62.9 and Impaired circulation I99.9 [place] [id number] [place] [address] Mar, Low back pain M54.5 [place] [id number] [place] [address] Mar, Anxiety F41.9 [place] [id number] [place] [address] Jan, BMI 50.0-59.9, adult Z68.43 ; Chronic obstructive pulmonary disease, unspecified COPD type J44.9 ; Low back pain M54.5 and Moderate episode of recurrent major depressive disorder F33.1 [facility] [id number] [place] [address] Jan, [facility] [id number] [place] [address] Jan, [facility] [id number] [place] [address] Dec, Anxiety F41.9 [facility] [address] [address] Dec, [facility] [address] [address] Dec, Anxiety F41.9 [facility] [id number] [place] [address] Dec, [place] [address] [address] Dec, Encounter for immunization Z23 [facility] [id number] [place] [address] Dec, [facility] [id number] [place] [address] Dec, Hammertoe of left foot M20.42 ; Edema of left foot R60.0 and Onychomycosis B35.1 [facility] [id number] [place] [address] Nov, BMI 50.0-59.9, adult Z68.43 [facility] [id number] [place] [address] Nov, [facility] [id number] [place] [address] Nov, [facility] [id number] [place] [address] Nov, Anxiety F41.9 [facility] [address] [address] Oct, [facility] [id number] [place] [address] Oct, [facility] [id number] [place] [address] Oct, BMI 45.0-49.9, adult Z68.42 ; Essential hypertension I10 ; Hyperlipidemia, unspecified E78.5 ; Anxiety F41.9 ; Obstructive sleep apnea syndrome G47.33 ; Moderate episode of recurrent major depressive disorder F33.1 ; Left ventricular diastolic dysfunction I51.9 ; Acute pain of right shoulder M25.511 ; Pain of left foot M79.672 and Pain in right foot M79.671 [facility] [address] [place] [address] Oct, Anxiety F41.9 [facility] [id number] [place] [address] Sep, Left foot pain M79.672 [facility] [id number] [place] [address] Sep, [facility] [id number] [place] [address] Sep, Anxiety F41.9 [facility] [address] [place] [address] Sep, [facility] [id number] [place] [address] Aug, [facility] [id number] [place] [address] Aug, [facility] [id number] [place] [address] Aug, Anxiety F41.9 [facility] [address] [address] Aug, [facility] [address] [address] Jul, [facility] [id number] [place] [address] Jul, Anxiety F41.9 [facility] [id number] [place] [address] June, Anxiety F41.9 [facility] [id number] [place] [address] June, [facility] [id number] [place] [address] June, Low back pain M54.5 ; Chronic prescription opiate use Z79.899 ; Candidal intertrigo B37.2 ; Urge incontinence N39.41 ; Essential hypertension I10 ; Moderate episode of recurrent major depressive disorder F33.1 ; Age-related osteoporosis without current pathological fracture M81.0 and BMI 45.0-49.9, adult Z68.42 [facility] [address] [address] June, [facility] [id number] [place] [address] May, Anxiety F41.9 [facility] [id number] [place] [address] May, [facility] [address] [place] [address] May, [facility] [address] [place] [address] Apr, Anxiety F41.9 [facility] [id number] [place] [address] Apr, [facility] [address] [address] Apr, Low back pain M54.5 [facility] [id number] [place] [address] Apr, [facility] [address] [address] Apr, [facility] [id number] [place] [address] Apr, Anxiety F41.9 [facility] [id number] [place] [address] Apr, Right groin pain R10.31 [facility] [id number] [place] [address] Mar, [facility] [id number] [place] [address] Mar, [facility] [id number] [place] [address] Mar, Anxiety F41.9 [facility] [id number] [place] [address] Mar, Low back pain M54.5 [facility] [id number] [place] [address] Mar, Right groin pain R10.31 ; Low back pain M54.5 and BMI 45.0-49.9, adult Z68.42 [facility] [address] [place] [address] Mar, [facility] [address] [place] [address] Mar, [facility] [address] [place] [address] Mar, [facility] [id number] [place] [address] Mar, [facility] [address], [place] [address] Mar, Cough R05 ; Pneumonia of right lower lobe due to infectious organism J18.1 and Abnormal chest x-ray R93.8 [facility] [id number] [place] [address] Mar, [facility] [id number] [place] [address] Mar, [facility] [id number] [place] [address] Jan, Anxiety F41.9 [facility] [id number] [place] [address] Jan, [facility] [address] [address] Jan, Moderate episode of recurrent major depressive disorder F33.1 [facility] [id number] [place] [address] Jan, Subacromial bursitis of right shoulder joint M75.51 ; Shortness of breath on exertion R06.02 and BMI 45.0-49.9, adult Z68.42 [facility] [id number] [place] [address] Dec, Anxiety F41.9 [facility] [id number] [place] [address] Dec, [facility] [id number] [place] [address] Dec, Low back pain M54.5 [facility] [id number] [place] [address] Oct, Low back pain M54.5 [facility] [id number] [place] [address] Sep, [facility] [id number] [place] [address] Sep, Erectile dysfunction due to diseases classified elsewhere N52.1 [facility] [address] [place] [address] Sep, Erectile dysfunction due to diseases classified elsewhere N52.1 [facility] [id number] [place] [address] Sep, [facility] [id number] [place] [address] Sep, Erectile dysfunction due to diseases classified elsewhere N52.1 [facility] [address] [address] Sep, Low back pain M54.5 and Anxiety F41.9 [facility] [address] [address] Aug, Acute allergic rhinitis J30.9 [facility] [id number] [place] [address] Aug, [facility] [address] [address] Aug, Anxiety F41.9 [facility] [id number] [place] [address] Jul, Low back pain M54.5 ; Chronic prescription opiate use Z79.899 and Essential hypertension I10 [facility] [id number] [place] [address] Jul, Anxiety F41.9 and Low back pain M54.5 [facility] [id number] [place] [address] June, [facility] [id number] [place] [address] June, Anxiety F41.9 [facility] [id number] [place] [address] May, Low back pain M54.5 [facility] [id number] [place] [address] May, [place] [address] [address] 12 May, 2016 Anxiety F41.9 [place] [address] [place] [address] 28 Apr, 2016 [place] [address] [place] [address] Apr, Low back pain M54.5 [place] [id number] [place] [address] Apr, Moderate episode of recurrent major depressive disorder F33.1 [place] [id number] [place] [address] Apr, Anxiety F41.9 [place] [address] [place] [address] Apr, Low back pain M54.5 [place] [address] [place] [address] 15 Apr, 2016 Elevated alkaline phosphatase level R74.8 [place] [address] [place] [address] 10 Apr, 2016 Alkaline phosphatase elevation R74.8 [place] [address] [place] [address] 06 Apr, 2016 Anxiety F41.9 [place] [address] [place] [address] 03 Apr, 2016 Low back pain M54.5 [place] [address] [address] 03 Apr, 2017 History of weight loss surgery Z98.84 ; Encounter for hepatitis C screening test for low risk patient Z11.59 ; History of herpes genitalis Z86.19 ; Essential hypertension I10 ; Hyperlipidemia, unspecified E78.5 ; Exposure to STD Z20.2 and Benign prostatic hyperplasia, presence of lower urinary tract symptoms unspecified, unspecified morphology N40.0 [place] [address] [address] Apr, [facility] [id number] [place] [address] Mar, [facility] [id number] [place] [address] Mar, [place] [id number] [place] [address] Mar, [facility] [id number] [place] [address] Mar, Acute right-sided low back pain with right-sided sciatica M54.41 [place] [id number] [place] [address] Mar, Low back pain M54.5 [facility] [id number] [place] [address] Mar, Muscle strain of chest wall, initial encounter S29.011A ; Muscle strain of right thigh, initial encounter S76.911A and Acute non-recurrent maxillary sinusitis J01.00 [place] [id number] [place] [address] Mar, Benign prostatic hyperplasia, presence of lower urinary tract symptoms unspecified, unspecified morphology N40.0 [place] [address] [place] [address] Jan, Low back pain M54.5 [place] [id number] [place] [address] 13 Jan, 2016 Low back pain M54.5 ; Essential hypertension I10 ; Hyperlipidemia, unspecified E78.5 ; Anxiety F41.9 ; Moderate episode of recurrent major depressive disorder F33.1 ; Primary insomnia F51.01 ; Exposure to STD Z20.2 ; Encounter for hepatitis C screening test for low risk patient Z11.59 and History of herpes genitalis Z86.19 [place] [id number] [place] [address] Dec, [facility] [id number] [place] [address] Nov, [facility] [address] [address] Nov, Anxiety F41.9 ; Cervicalgia M54.2 ; Moderate episode of recurrent major depressive disorder F33.1 and Encounter for immunization Z23 [facility] [address] [address] Oct, [facility] [address] [address] 22 Nov, 2015 [facility] [address] [address] 16 Nov, 2015 [facility] [address] [address] Oct, [facility] [address] [address] Sep, [facility] [id number] [place] [address] Aug, Low back pain M54.5 ; Anxiety F41.9 ; Primary insomnia F51.01 and Chronic prescription opiate use Z79.899 [facility] [address] [place] [address] Jul, [facility] [address] [place] [address] Jul, [facility] [address] [place] [address] Jul, [facility] [address] [place] [address] Jul, [facility] [address] [place] [address] Jul, [facility] [address], [place] [address] June, [facility] [address] [place] [address] June, [facility] [address] [address] June, [facility] [address] [place] [address] June, [facility] [address] [place] [address] May, Preoperative cardiovascular examination Z01.810 [facility] [address] [place] [address] May, [facility] [id number] [place] [address] Apr, [facility] [id number] [place] [address] Apr, Osteoarthritis of right knee M17.9 [facility] [id number] [address] Apr, [facility] [id number] [place] [address] Apr, [facility] [address], [place] [address] Apr, [facility] [address], [place] [address] Apr, [facility] [address], [place] [address] Apr, History of excessive cerumen Z78.9 ; Obstructive sleep apnea syndrome G47.33 ; History of diverticulitis Z87.19 and Nephrolithiasis N20.0 [facility] [address], [place] [address] Apr, [facility] [address], [place] [address] 23 Apr, 2015 Abdominal pain R10.9 [facility] [id number] [place] [address] 10 Apr, 2015 [facility] [address] [place] [address] 04 Apr, 2015 Osteoarthritis of right knee M17.9 [facility] [address] [place] [address] Mar, [place] [id number] [place] [address] 15 Mar, 2015 [place] [id number] [place] [address] 14 Mar, 2015 [place] [id number] [place] [address] Mar, [facility] [id number] [place] [address] Mar, Pyelonephritis N12 ; Left-sided thoracic back pain M54.6 ; Hematuria, unspecified R31.9 and Kidney stone N20.0 [place] [address] [place] [address] Mar, History of weight loss surgery Z98.84 [facility] [facility] [address] [place] [address] Mar, History of weight loss surgery Z98.84 and Hyperlipidemia, unspecified E78.5 [place] [address] [place] [address] Mar, Low back pain M54.5 ; Chronic prescription opiate use Z79.899 ; Hyperlipidemia, unspecified E78.5 ; Spasm of back muscles M62.830 and History of weight loss surgery Z98.84 [facility] [facility] [id number] [place] [address] Jan, [facility] [address], [place] [address] Jan, [facility] [id number] [place] [address] Jan, [facility] [address], [place] [address] Dec, [facility] [id number] [place] [address] Dec, [facility] [address] [place] [address] Dec, [facility] [id number] [place] [address] Nov, [facility] [id number] [place] [address] Nov, Obstructive sleep apnea syndrome G47.33 and Pharyngoesophageal dysphagia R13.14 [facility] [address], [place] [address] Nov, [facility] [id number] [place] [address] Nov, [facility] [address], [place] [address] Nov, [facility] [address] [place] [id number] 30 Oct, 2014 Dental examination V72.2 [facility] [address], [place] [address] Oct, [facility] [id number] [place] [address] Oct, [facility] [address], [place] [address] Oct, [facility] [address] [place] [id number] Oct, [facility] [id number] [place] [id number] Oct, BPH (benign prostatic hyperplasia) 600.00 and Urinary frequency 788.41 [facility] [id number] [place] [id number] Oct, [facility] [id number] [place] [address] Oct, [facility] [id number] [place] [address] Oct, [facility] [id number] [place] [address] Sep, Cerumen impaction 380.4 ; Cerumen debris on tympanic membrane 380.4 ; Psoriasis 696.1 and MICKY (secretory otitis media) 381.4 [facility] [id number] [place] [id number] Sep, Dental examination V72.2 [facility] [id number] [place] [address] Sep, Fatigue 780.79 ; Irritable bowel syndrome 564.1 ; Overweight 278.02 ; Poor sleep V69.4 ; Shaking spells 781.0 and Broken tooth 873.63 [facility] [id number] [address] Sep, [facility] [id number] [place] [id number] Sep, [facility] [id number] [place] [id number] Aug, [facility] [id number] [place] [id number] Jul, [facility] [id number] [address] Jul, [facility] [id number] [place] [address] Jul, [facility] [id number] [place] [address] Jul, [facility] [id number] [place] [address] June, Arthritis of knee, right 716.96 [facility] [id number] [place] [address] June, [facility] [id number] [place] [address] June, Elevated blood pressure reading without diagnosis of hypertension 796.2 [facility] [id number] [place] [address] June, [facility] [id number] [address] June, [facility] [id number] [address] June, [facility] [id number] [place] [address] June, [facility] [address] [place] [address] May, [facility] [id number] [address] May, [facility] [address] [id number] [address] Apr, [facility] [address] [id number] [place] [address] Apr, [facility] [address] [id number] [address] Apr, [facility] [address] [id number] [address] Apr, [facility] [address] [facility] [id number] [place] [address] 20 Apr, 2014 [facility] [place] [facility] [address] [id number] [place] [address] Apr, 2014 [facility] [place] [facility] [address] [id number] [place] [address] Apr, 2014 [facility] [place] [facility] [address] [id number] [place] [address] Apr, 2014 [facility] [place] [facility] [address] [id number] [place] [address] Apr, 2014 [facility] [place] [facility] [address] [facility] [id number] [place] [address] Apr, 2014 [facility] [place] [facility] [address] [facility] [id number] [place] [address] Apr, 2014 [facility] [place] [facility] [address] [facility] [id number] [place] [address] Apr, 2014 [facility] [place] [facility] [address] [facility] [id number] [place] [address] 24 Apr, 2014 [facility] [place] [facility] [address] [facility] [id number] [place] [address] 24 Apr, 2014 [facility] [place] [facility] [address] [id number] [address] Apr, 2014 [facility] [place] [facility] [address] [facility] [id number] [place] [address] 23 Apr, 2014 [facility] [place] [facility] [address] [facility] [id number] [place] [address] 20 Apr, 2014 [facility] [place] [facility] [address] [facility] [id number] [place] [address] 20 Apr, 2014 [facility] [place] [facility] [address] [facility] [id number] [place] [address] 18 Apr, 2014 [facility] [place] [facility] [address] [facility] [id number] [place] [address] 18 Apr, 2014 [facility] [place] [facility] [address] [id number] [place] [address] Apr, 2014 [facility] [place] [facility] [address] [id number] [place] [address] Apr, 2014 [facility] [place] [facility] [address] [facility] [id number] [place] [address] Apr, 2014 [facility] [place] [facility] [address] [id number] [place] [address] Apr, 2014 [facility] [place] [facility] [address] [id number] [place] [address] Apr, 2014 [facility] [place] [facility] [address] [id number] [place] [address] Apr, 2014 [facility] [place] [facility] [address] [facility] [id number] [place] [address] Apr, 2014 [facility] [place] [facility] [address] [facility] [id number] [place] [address] Apr, 2014 [facility] [place] [facility] [address] [facility] [id number] [place] [address] Apr, 2014 [facility] [place] [facility] [address] [facility] [id number] [place] [address] Apr, 2014 [facility] [place] [facility] [address] [facility] [id number] [place] [address] Apr, 2014 [facility] [place] [facility] [address] [facility] [id number] [place] [address] Apr, 2014 [facility] [place] [facility] [address] [id number] [place] [address] Apr, 2014 [facility] [place] [facility] [address] [facility] [id number] [place] [address] Mar, [facility] [place] [facility] [address] [facility] [id number] [place] [address] Mar, [facility] [place] [facility] [address] [id number] [place] [address] Mar, [facility] [place] [facility] [address] [id number] [place] [address] Mar, [facility] [place] [facility] [address] [id number] [place] [address] Mar, [facility] [place] [facility] [address] [id number] [place] [address] Mar, [facility] [place] [facility] [address] [id number] [place] [address] Mar, [facility] [place] [facility] [address] [id number] [place] [address] Mar, [facility] [place] [facility] [address] [id number] [place] [address] Mar, [facility] [place] [facility] [address] [id number] [place] [address] Mar, [facility] [place] [facility] [address] [id number] [place] [address] Jan, [facility] [place] [facility] [address] [id number] [place] [address] Jan, [facility] [place] [facility] [address] [id number] [place] [address] Jan, [facility] [place] [facility] [address] [id number], [place] [address] Jan, [facility] [place] [facility] [address] [id number] [place] [address] Jan, [facility] [place] [facility] [address] [id number] [place] [address] Jan, [facility] [place] [facility] [address] [id number] [place] [address] Jan, [facility] [place] [facility] [address] [id number] [place] [address] 05 Jan, 2014 [facility] [place] [facility] [address] [id number] [place] [address] 05 Jan, 2014 [facility] [place] [facility] [address] [id number] [place] [address] Jan, [facility] [place] [facility] [address] [id number] [place] [address] Jan, [facility] [place] [facility] [address] [id number] [place] [address] Jan, [facility] [place] [facility] [address] [id number] [place] [address] Dec, [facility] [place] [facility] [address] [id number] [place] [address] Dec, [facility] [place] [facility] [address] [id number] [place] [address] Dec, [facility] [place] [facility] [address] [id number] [place] [address] Dec, [facility] [place] [facility] [address] [id number] [place] [address] Dec, [facility] [place] [facility] [address] [facility] [id number] [place] [address] Dec, [facility] [place] [facility] [address] [id number] [place] [address] Dec, [facility] [place] [facility] [address] [id number], [place] [address] Dec, [facility] [place] [facility] [address] [id number] [place] [address] Dec, [facility] [place] [facility] [address] [id number] [place] [address] Dec, [facility] [place] [facility] [address] [id number] [place] [address] Nov, [facility] [place] [facility] [address] [id number] [place] [address] 31 Nov, 2013 [facility] [place] [facility] [address] [id number] [place] [address] Nov, 2013 [facility] [place] [facility] [address] [id number] [place] [address] Nov, 2013 [facility] [place] [facility] [address] [id number] [place] [address] Nov, [facility] [place] [facility] [address] [id number] [place] [address] Nov, 2013 [facility] [place] [facility] [address] [id number] [place] [address] Nov, [facility] [place] [facility] [address] [id number] [place] [address] Nov, [facility] [place] [facility] [address] [id number] [place] [address] Nov, [facility] [place] [facility] [address] [id number] [place] [address] 24 Nov, 2013 [facility] [place] [facility] [address] [id number] [place] [address] Nov, 2013 [facility] [place] [facility] [address] [id number] [place] [address] 17 Nov, 2013 [facility] [place] [facility] [address] [id number] [place] [address] 14 Nov, 2013 [facility] [place] [facility] [address] [id number] [place] [address] 14 Nov, 2013 [facility] [place] [facility] [address] [id number] [place] [address] 10 Nov, 2013 [facility] [place] [facility] [address] [id number] [place] [address] 10 Nov, 2013 [facility] [place] [facility] [address] [id number] [place] [address] 08 Nov, 2013 [facility] [place] [facility] [address] [id number] [place] [address] Nov, [facility] [place] [facility] [address] [id number] [place] [address] Nov, [facility] [place] [facility] [address] [id number] [place] [address] Nov, [facility] [place] [facility] [address] [id number] [place] [address] Oct, [facility] [place] [facility] [address] [id number] [place] [address] Oct, [facility] [place] [facility] [address] [id number] [place] [address] Oct, [facility] [place] [facility] [address] [id number] [place] [address] Oct, [facility] [place] [facility] [address] [id number] [place] [address] Oct, [facility] [place] [facility] [address] [id number] [place] [address] Oct, [facility] [place] [facility] [address] [id number] [place] [address] Oct, [facility] [place] [facility] [address] [id number] [place] [address] Oct, [facility] [place] [facility] [address] [id number] [address] Oct, [facility] [place] [facility] [address] [id number] [place] [address] Oct, [facility] [place] [facility] [address] [id number] [place] [address] Sep, [facility] [place] [facility] [address] [id number] [place] [address] Sep, [facility] [place] [facility] [address] [id number] [place] [address] Sep, [facility] [place] [facility] [address] [id number] [place] [address] Sep, [facility] [place] [facility] [address] [id number] [place] [address] Sep, [facility] [place] [facility] [address] [id number] [place] [address] Sep, [facility] [place] [facility] [address] [id number] [place] [address] Sep, [facility] [place] [facility] [address] [id number] [place] [address] Sep, [facility] [place] [facility] [address] [id number] [place] [address] Sep, [facility] [place] [facility] [address] [id number] [place] [address] Sep, [facility] [place] [facility] [address] [id number] [place] [address] Sep, [facility] [place] [facility] [address] [id number] [place] [address] Sep, [facility] [place] [facility] [address] [id number] [place] [address] Sep, [facility] [place] [facility] [address] [id number] [place] [address] Sep, [facility] [place] [facility] [address] [id number] [place] [address] Sep, [facility] [place] [facility] [address] [id number] [place] [address] Sep, [facility] [place] [facility] [address] [id number] [place] [address] Sep, [facility] [place] [facility] [address] [id number] [place] [address] Sep, [facility] [place] [facility] [address] [id number] [place] [address] Sep, [facility] [place] [facility] [address] [id number] [place] [address] Sep, [facility] [place] [facility] [address] [id number] [place] [address] Sep, [facility] [place] [facility] [address] [id number] [place] [address] Sep, [facility] [place] [facility] [address] [id number] [place] [address] Sep, [facility] [place] [facility] [address] [id number] [place] [address] Sep, [facility] [place] [facility] [address] [id number] [place] [address] Sep, [facility] [place] [facility] [address] [id number] [place] [address] Aug, [facility] [place] [facility] [address] [id number] [place] [address] Aug, [facility] [place] [facility] [address] [id number] [place] [address] Aug, [facility] [place] [facility] [address] [id number] [place] [address] Aug, [facility] [place] [facility] [address] [id number] [place] [address] Aug, [facility] [place] [facility] [address] [id number] [place] [address] Aug, [facility] [place] [facility] [address] [id number] [place] [address] Aug, [facility] [place] [facility] [address] [id number] [place] [address] Aug, [facility] [place] [facility] [address] [id number] [place] [address] Aug, [facility] [place] [facility] [address] [id number] [place] [address] Aug, [facility] [place] [facility] [address] [id number] [place] [address] Aug, [facility] [place] [facility] [address] [id number] [place] [address] Aug, [facility] [place] [facility] [address] [id number] [place] [address] Aug, [facility] [place] [facility] [address] [id number] [place] [address] Jul, [facility] [place] [facility] [address] [id number] [place] [address] Jul, [facility] [place] [facility] [address] [id number] [place] [address] Jul, [facility] [place] [facility] [address] [id number] [place] [address] Jul, [facility] [place] [facility] [address] [id number] [place] [address] Jul, [facility] [place] [facility] [address] [id number] [place] [address] Jul, [facility] [place] [facility] [address] [id number] [place] [address] Jul, [facility] [place] [facility] [address] [id number] [place] [address] June, [facility] [place] [facility] [address] [id number] [place] [address] June, [facility] [place] [facility] [address] [id number] [place] [address] June, [facility] [place] [facility] [address] [id number] [place] [address] June, [facility] [place] [facility] [address] [id number] [place] [address] May, [facility] [place] [facility] [address] [id number] [place] [address] May, [facility] [place] [facility] [address] [id number] [place] [address] May, [facility] [place] [facility] [address] [id number] [place] [address] May, [facility] [place] [facility] [address] [id number] [place] [address] May, [facility] [place] [facility] [address] [id number] [place] [address] May, [facility] [place] [facility] [address] [id number] [place] [address] May, [facility] [place] [facility] [address] [id number] [place] [address] May, [facility] [place] [facility] [address] [id number] [place] [address] May, [facility] [place] [facility] [address] [id number] [place] [address] May, [facility] [place] [facility] [address] [id number] [place] [address] Apr, [facility] [place] [facility] [address] [id number] [place] [address] Apr, [facility] [place] [facility] [address] [id number] [place] [address] Apr, [facility] [place] [facility] [address] [id number] [place] [address] Apr, [facility] [place] [facility] [address] [id number] [place] [address] Apr, [facility] [place] [facility] [address] [id number] [place] [address] Apr, [facility] [place] [facility] [address] [id number] [place] [address] Apr, [facility] [place] [facility] [address] [id number] [place] [address] Apr, [facility] [place] [facility] [address] [id number] [place] [address] Apr, [facility] [place] [facility] [address] [id number] [place] [address] Apr, [facility] [place] [facility] [address] [id number] [place] [address] Mar, [facility] [place] [facility] [address] [id number] [place] [address] Mar, [facility] [place] [facility] [address] [id number] [place] [address] Mar, [facility] [place] [facility] [address] [id number] [place] [address] Mar, [facility] [place] [facility] [address] [id number] [place] [address] Mar, [facility] [place] [facility] [address] [facility] [id number] [place] [address] Mar, [facility] [place] [facility] [address] [id number] [place] [address] Jan, [facility] [place] [facility] [address] [id number] [place] [address] Jan, [facility] [place] [facility] [address] [id number] [place] [address] Jan, [facility] [place] [facility] [address] [id number] [place] [address] Jan, [facility] [place] [facility] [address] [id number] [place] [address] Jan, [facility] [place] [facility] [address] [id number] [place] [address] Jan, [facility] [address] [id number] [place] [address] Jan, [facility] [address] [id number] [place] [address] Jan, [facility] [address] [id number] [place] [address] Jan, [facility] [address] [id number] [place] [address] Dec, [facility] [address] [id number] [place] [address] Dec, [facility] [address] [id number] [place] [address] Dec, [facility] [address] [id number] [place] [address] Dec, [facility] [address] [id number] [place] [address] Dec, [facility] [address] [id number] [place] [address] Dec, [facility] [address] [facility] [id number] [place] [address] Dec, [facility] [address] [id number] [place] [address] Dec, [facility] [address] [id number], [place] [address] 05 Dec, 2012 [facility] [place] [facility] [address] [id number] [place] [address] 05 Dec, 2012 [facility] [address] [id number] [place] [address] 04 Dec, 2012 [facility] [place] [facility] [address] [id number] [place] [address] Nov, [facility] [place] [facility] [address] [id number] [place] [address] Nov, [facility] [place] [facility] [address] [id number] [place] [address] Nov, [facility] [place] [facility] [address] [id number] [place] [address] Nov, [facility] [place] [facility] [address] [id number] [place] [address] Nov, [facility] [place] [facility] [address] [id number] [place] [address] Oct, [facility] [place] [facility] [address] [id number] [place] [address] Oct, [facility] [place] [facility] [address] [id number] [place] [address] Sep, [facility] [place] [facility] [address] [id number] [place] [address] Aug, [facility] [place] [facility] [address] [id number] [place] [address] Aug, [facility] [place] [facility] [address] [id number] [place] [address] Aug, [facility] [place] [facility] [address] [id number] [place] [address] Aug, [facility] [place] [facility] [address] [id number] [place] [address] Jul, [facility] [place] [facility] [address] [id number] [place] [address] Jul, [facility] [place] [facility] [address] [id number] [place] [address] June, [facility] [place] [facility] [address] [id number] [place] [address] June, [facility] [place] [facility] [address] [id number] [place] [address] June, [facility] [address] [id number] [place] [address] 08 May, 2012 [facility] [address] [id number] [place] [address] 04 May, 2012 [facility] [address] [id number] [place] [address] May, [facility] [address] [id number] [place] [address] 18 Apr, 2012 [facility] [address] [id number] [place] [address] 18 Apr, 2012 [facility] [address] [id number] [place] [address] 15 Apr, 2012 [facility] [id number] [address] 14 Apr, 2012 [facility] [address] [facility] [id number] [place] [address] Apr, [facility] [address] [id number] [address] 27 Apr, 2012 [facility] [address] [id number] [address] Apr, [facility] [id number] [address] Apr, [facility] [address] [facility] [id number], [place] [address] 21 Apr, 2012 [facility] [place] [facility] [address] [id number] [place] [address] 20 Apr, 2012 [facility] [place] [facility] [address] [facility] [id number], [place] [address] 19 Apr, 2012 [facility] [id number] [address] 07 Apr, 2012 [facility] [address] [id number] [place] [address] 07 Apr, 2012 [facility] [place] [facility] [address] [id number] [place] [address] Mar, [facility] [place] [facility] [address] [id number] [place] [address] Mar, [facility] [place] [facility] [address] [id number] [place] [address] Mar, [facility] [address] [id number] [place] [address] Mar, [facility] [place] [facility] [address] [id number] [place] [address] Mar, [facility] [place] [facility] [address] [id number] [place] [address] Jan, [facility] [place] [facility] [address] [id number] [place] [address] 28 Jan, 2012 [facility] [place] [facility] [address] [id number] [place] [address] Jan, [facility] [place] [facility] [address] [id number] [place] [address] 22 Jan, 2012 [facility] [place] [facility] [address] [id number] [place] [address] 14 Jan, 2012 [facility] [place] [facility] [address] [id number] [place] [address] 13 Jan, 2012 [facility] [place] [facility] [address] [id number] [place] [address] 13 Jan, 2012 [facility] [place] [facility] [address] [id number] [place] [address] 11 Jan, 2012 [facility] [place] [facility] [address] [id number] [place] [address] 06 Jan, 2012 [facility] [place] [facility] [address] [id number], [place] [address] 06 Jan, 2012 [facility] [place] [facility] [address] [id number] [place] [address] 04 Jan, 2012 [facility] [place] [facility] [address] [id number] [place] [address] 04 Jan, 2012 [facility] [place] [facility] [address] [id number] [place] [address] 04 Jan, 2012 [facility] [place] [facility] [address] [id number] [place] [address] 04 Jan, 2012 [facility] [place] [facility] [address] [id number] [place] [address] 26 Jan, 2012 [facility] [place] [facility] [address] [id number] [place] [address] 26 Jan, 2012 [facility] [place] [facility] [address] [id number], [place] [address] 19 Jan, 2012 [facility] [place] [facility] [address] [id number], [place] [address] 19 Jan, 2012 [facility] [place] [facility] [address] [id number] [place] [address] 15 Jan, 2012 [facility] [place] [facility] [address] [facility] [id number] [place] [address] 15 Jan, 2012 [facility] [place] [facility] [address] [id number] [place] [address] 14 Jan, 2012 [facility] [place] [facility] [address] [id number], [place] [address] 14 Jan, 2012 [facility] [place] [facility] [address] [id number], [place] [address] 14 Jan, 2012 [facility] [place] [facility] [address] [id number], [place] [address] 14 Jan, 2012 [facility] [place] [facility] [address] [id number], [place] [address] 07 Jan, 2012 [facility] [place] [facility] [address] [id number] [place] [address] Dec, [facility] [place] [facility] [address] [id number] [place] [address] 16 Dec, 2011 [facility] [place] [facility] [address] [id number] [place] [address] 16 Dec, 2011 [facility] [place] [facility] [address] [id number] [place] [address] 13 Nov, 2011 [facility] [place] [facility] [address] [id number] [place] [address] 13 Nov, 2011 [facility] [place] [facility] [address] [id number] [place] [address] 13 Nov, 2011 [facility] [place] [facility] [address] [id number] [place] [address] 12 Nov, 2011 [facility] [place] [facility] [address] [id number] [place] [address] Sep, [facility] [place] [facility] [address] [id number] [place] [address] Sep, [facility] [place] [facility] [address] [id number] [place] [address] Aug, [facility] [place] [facility] [address] [id number] [place] [address] Aug, [facility] [place] [facility] [address] [id number] [place] [address] Aug, [facility] [place] [facility] [address] [id number] [place] [address] Aug, [facility] [place] [facility] [address] [id number] [place] [address] June, [facility] [place] [facility] [address] [id number] [place] [address] June, [facility] [place] [facility] [address] [id number] [place] [address] May, [facility] [address] [id number] [place] [address] Apr, [facility] [place] [facility] [address] [id number] [place] [address] Apr, [facility] [place] [facility] [address] [id number] [place] [address] Apr, [facility] [place] [facility] [address] [id number] [place] [address] Apr, [facility] [place] [facility] [address] [id number] [place] [address] Apr, [facility] [place] [facility] [address] [id number] [place] [address] Apr, [facility] [place] [facility] [address] [id number] [place] [address] Mar, [facility] [place] [facility] [address] [id number] [place] [address] Mar, [facility] [place] [facility] [address] [id number] [place] [address] Mar, [facility] [place] [facility] [address] [id number] [place] [address] Jan, [facility] [place] [facility] [address] [id number] [place] [address] Jan, [facility] [place] [facility] [address] [id number], [place] [address] Jan, [facility] [place] [facility] [address] [id number] [place] [address] Jan, [facility] [place] [facility] [address] [facility] [id number] [place] [address] Jan, [facility] [place] [facility] [address] [facility] [id number] [place] [address] Jan, [facility] [place] [facility] [address] [id number] [place] [address] 12 Jan, 2011 [facility] [address] [id number] [place] [address] Dec, [facility] [place] [facility] [address] [id number] [place] [address] Dec, [facility] [address] [id number] [place] [address] Nov, [facility] [place] [facility] [address] [id number] [place] [address] Nov, [facility] [address] [id number] [place] [address], [place] [address] Nov, [facility] [place] [facility] [address] [id number] [place] [address] Nov, [facility] [place] [facility] [address] [id number] [place] [address] Oct, [facility] [place] [facility] [address] [id number] [place] [address] Sep, [facility] [place] [facility] [address] [id number] [place] [address] Mar, [facility] [address] [id number] [place] [address] Jan, [facility] [place] [facility] [address] [id number] [place] [address] Dec, [facility] [place] [facility] [address] [id number] [place] [address] Dec, [facility] [place] [facility] [address] [id number] [place] [address] Dec, [facility] [place] [facility] [address] [id number] [place] [address] Dec, [facility] [place] [facility] [address] [id number] [place] [address] Nov, [facility] [address] [id number] [place] [address] 15 Nov, 2009 [facility] [place] [facility] [address] [id number] [place] [address] 14 Nov, 2009 [facility] [place] [facility] [address] [id number] [place] [address] 14 Nov, 2009 [facility] [place] [facility] [address] [id number] [place] [address] 13 Oct, 2009 [facility] [place] [facility] [address] [id number] [place] [address] 17 Jul, 2009 [facility] [place] [facility] [address] [id number] [place] [address] 17 Jun, 2009 [facility] [place] [facility] [address] [facility] [id number] [place] [address] June, [facility] [place] [facility] [address] [id number], [place] [address] 17 Apr, 2009 [facility] [place] [facility] [address] [id number], [place] [address] Mar, [facility] [place] [facility] [address] [facility] [id number], [place] [address] 24 Jan, 2009 [facility] [place] [facility] [address] [id number], [place] [address] Jan, [facility] [place] [facility] [address] [id number], [place] [address] 27 Dec, 2008 [facility] [place] [facility] [address] [id number], [place] [address] Dec, [facility] [place] [facility] [address] [id number], [place] [address] 13 Dec, 2008 [facility] [place] [facility] [address] [facility] [id number], [place] [address] 13 Dec, 2008 [facility] [place] [facility] [address] [id number], [place] [address] Nov, [facility] [address] [facility] [id number] [place] [address] Jul, [facility] [address] [facility] [id number] [place] [address] June, IMMUNIZATIONS No Known Immunizations SOCIAL HISTORY Never Assessed REASON FOR VISIT EMR[place] [place] CARE VITAL SIGNS MEDICATIONS Unknown [...]
--- OUTSIDE RECORDS SUMMARY | 2018-08-23 17:16 | XMS REPORT ---
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 Name Role Phone Migration, Doctor Unavailable Unavailable PROBLEMS Type Condition ICD9-CM Code NNQ35-SK Code Onset Dates Condition Status SNOMED Code Problem Pulmonary asbestosis J61 Active 42259986 Problem Renal cyst, left N28.1 Active 63043718 Problem Left ventricular diastolic dysfunction I51.9 Active 956165237 Problem Urge incontinence N39.41 Active 354287455 Problem Anxiety F41.9 Active 82099042 Problem Low back pain M54.5 Active 004745240 Problem Age-related osteoporosis without current pathological fracture M81.0 Active 47264837 Problem History of diverticulitis Z87.19 Active 244803473902343 Problem Allergic rhinitis, unspecified allergic rhinitis type J30.9 Active 49470875 Problem Nephrolithiasis N20.0 Active 45141547 Problem Nocturnal hypoxia G47.34 Active 908422509 Problem Psoriasis L40.9 Active 4296336 Problem Essential hypertension I10 Active 11702607 Problem Chronic gout, unspecified cause, unspecified site M1A.9XX0 Active 96393050 Problem Esophageal stricture K22.2 Active 41774788 Problem Obstructive sleep apnea syndrome G47.33 Active 46560419 Problem History of weight loss surgery Z98.84 Active 046029266 Problem 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 Active 41352243 Problem Chronic prescription opiate use Z79.899 Active 962544167 Problem Moderate episode of recurrent major depressive disorder F33.1 Active 352998072 Problem Chronic obstructive pulmonary disease, unspecified COPD type J44.9 Active 46209659 Problem Primary insomnia F51.01 Active 658600806 Problem Neuropathy G62.9 Active 404972840 Problem Cervicalgia M54.2 Active 5704460518474 Problem Hyperlipidemia, unspecified E78.5 Active 23147709 Problem Benign prostatic hyperplasia, presence of lower urinary tract symptoms unspecified, unspecified morphology N40.0 Active 485998833 Problem Acute right-sided low back pain with right-sided sciatica M54.41 Active 392436365 Problem Erectile dysfunction due to diseases classified elsewhere N52.1 Active 919235521 Problem Hammertoe of left foot M20.42 Active 981360320 ALLERGIES No Information ENCOUNTERS Encounter Location Date Diagnosis [place] [id number] [place] [address] May, [place] [address] [address] Apr, [place] [address] [address] Apr, Anxiety F41.9 [place] [address] [address] Apr, Low back pain M54.5 [place] [address] [address] Apr, Anxiety F41.9 [place] [address] [address] Mar, Moderate episode of recurrent major depressive disorder F33.1 ; BMI 50.0-59.9, adult Z68.43 ; Anxiety F41.9 and Chronic prescription opiate use Z79.899 [place] [id number] [place] [address] Mar, Onychomycosis B35.1 ; Neuropathy G62.9 and Impaired circulation I99.9 [place] [id number] [place] [address] Mar, Low back pain M54.5 [place] [id number] [place] [address] Mar, Anxiety F41.9 [place] [id number] [place] [address] Jan, BMI 50.0-59.9, adult Z68.43 ; Chronic obstructive pulmonary disease, unspecified COPD type J44.9 ; Low back pain M54.5 and Moderate episode of recurrent major depressive disorder F33.1 [facility] [id number] [place] [address] Jan, [facility] [id number] [place] [address] Jan, [facility] [id number] [place] [address] Dec, Anxiety F41.9 [facility] [address] [address] Dec, [facility] [address] [address] Dec, Anxiety F41.9 [facility] [id number] [place] [address] Dec, [place] [address] [address] Dec, Encounter for immunization Z23 [facility] [id number] [place] [address] Dec, [facility] [id number] [place] [address] Dec, Hammertoe of left foot M20.42 ; Edema of left foot R60.0 and Onychomycosis B35.1 [facility] [id number] [place] [address] Nov, BMI 50.0-59.9, adult Z68.43 [facility] [id number] [place] [address] Nov, [facility] [id number] [place] [address] Nov, [facility] [id number] [place] [address] Nov, Anxiety F41.9 [facility] [address] [address] Oct, [facility] [id number] [place] [address] Oct, [facility] [id number] [place] [address] Oct, BMI 45.0-49.9, adult Z68.42 ; Essential hypertension I10 ; Hyperlipidemia, unspecified E78.5 ; Anxiety F41.9 ; Obstructive sleep apnea syndrome G47.33 ; Moderate episode of recurrent major depressive disorder F33.1 ; Left ventricular diastolic dysfunction I51.9 ; Acute pain of right shoulder M25.511 ; Pain of left foot M79.672 and Pain in right foot M79.671 [facility] [id number] [place] [address] Oct, Anxiety F41.9 [facility] [id number] [place] [address] Sep, Left foot pain M79.672 [facility] [id number] [place] [address] Sep, [facility] [id number] [place] [address] Sep, Anxiety F41.9 [facility] [id number] [place] [address] Sep, [facility] [id number] [place] [address] Aug, [facility] [id number] [place] [address] Aug, [facility] [id number] [place] [address] Aug, Anxiety F41.9 [facility] [address] [address] Aug, [facility] [id number] [address] Jul, [facility] [id number] [place] [address] Jul, Anxiety F41.9 [facility] [id number] [place] [address] June, Anxiety F41.9 [facility] [id number] [place] [address] June, [facility] [id number] [place] [address] June, Low back pain M54.5 ; Chronic prescription opiate use Z79.899 ; Candidal intertrigo B37.2 ; Urge incontinence N39.41 ; Essential hypertension I10 ; Moderate episode of recurrent major depressive disorder F33.1 ; Age-related osteoporosis without current pathological fracture M81.0 and BMI 45.0-49.9, adult Z68.42 [facility] [address] [address] June, [facility] [id number] [place] [address] May, Anxiety F41.9 [facility] [id number] [place] [address] May, [facility] [id number] [place] [address] May, [facility] [id number] [place] [address] Apr, Anxiety F41.9 [facility] [id number] [place] [address] Apr, [facility] [address] [address] Apr, Low back pain M54.5 [facility] [id number] [place] [address] Apr, [facility] [address] [address] Apr, [facility] [id number] [place] [address] Apr, Anxiety F41.9 [facility] [id number] [place] [address] Apr, Right groin pain R10.31 [facility] [id number] [place] [address] Mar, [facility] [id number] [place] [address] Mar, [facility] [id number] [place] [address] Mar, Anxiety F41.9 [facility] [id number] [place] [address] Mar, Low back pain M54.5 [facility] [id number] [place] [address] Mar, Right groin pain R10.31 ; Low back pain M54.5 and BMI 45.0-49.9, adult Z68.42 [facility] [id number] [place] [address] Mar, [facility] [id number] [place] [address] Mar, [facility] [id number] [place] [address] Mar, [facility] [id number] [place] [address] Mar, [facility] [address], [place] [address] Mar, Cough R05 ; Pneumonia of right lower lobe due to infectious organism J18.1 and Abnormal chest x-ray R93.8 [facility] [id number] [place] [address] Mar, [facility] [id number] [place] [address] Mar, [facility] [id number] [place] [address] Jan, Anxiety F41.9 [facility] [id number] [place] [address] Jan, [facility] [address] [address] Jan, Moderate episode of recurrent major depressive disorder F33.1 [facility] [id number] [place] [address] Jan, Subacromial bursitis of right shoulder joint M75.51 ; Shortness of breath on exertion R06.02 and BMI 45.0-49.9, adult Z68.42 [facility] [id number] [place] [address] Dec, Anxiety F41.9 [facility] [id number] [place] [address] Dec, [facility] [id number] [place] [address] Dec, Low back pain M54.5 [facility] [id number] [place] [address] Oct, Low back pain M54.5 [facility] [id number] [place] [address] Sep, [facility] [id number] [place] [address] Sep, Erectile dysfunction due to diseases classified elsewhere N52.1 [facility] [address] [place] [address] Sep, Erectile dysfunction due to diseases classified elsewhere N52.1 [facility] [id number] [place] [address] Sep, [facility] [id number] [place] [address] Sep, Erectile dysfunction due to diseases classified elsewhere N52.1 [facility] [address] [address] Sep, Low back pain M54.5 and Anxiety F41.9 [facility] [address] [address] Aug, Acute allergic rhinitis J30.9 [facility] [id number] [place] [address] Aug, [facility] [address] [address] Aug, Anxiety F41.9 [facility] [id number] [place] [address] Jul, Low back pain M54.5 ; Chronic prescription opiate use Z79.899 and Essential hypertension I10 [facility] [id number] [place] [address] Jul, Anxiety F41.9 and Low back pain M54.5 [facility] [id number] [place] [address] June, [facility] [id number] [place] [address] June, Anxiety F41.9 [facility] [id number] [place] [address] May, Low back pain M54.5 [facility] [id number] [place] [address] May, [place] [address] [address] 12 May, 2016 Anxiety F41.9 [place] [id number] [place] [address] 28 Apr, 2016 [place] [id number] [place] [address] Apr, Low back pain M54.5 [place] [id number] [place] [address] Apr, Moderate episode of recurrent major depressive disorder F33.1 [place] [id number] [place] [address] Apr, Anxiety F41.9 [place] [id number] [place] [address] Apr, Low back pain M54.5 [place] [id number] [place] [address] 15 Apr, 2016 Elevated alkaline phosphatase level R74.8 [place] [id number] [place] [address] 10 Apr, 2016 Alkaline phosphatase elevation R74.8 [place] [id number] [place] [address] 06 Apr, 2016 Anxiety F41.9 [place] [id number] [place] [address] 03 Apr, 2016 Low back pain M54.5 [place] [address] [address] 03 Apr, 2017 History of weight loss surgery Z98.84 ; Encounter for hepatitis C screening test for low risk patient Z11.59 ; History of herpes genitalis Z86.19 ; Essential hypertension I10 ; Hyperlipidemia, unspecified E78.5 ; Exposure to STD Z20.2 and Benign prostatic hyperplasia, presence of lower urinary tract symptoms unspecified, unspecified morphology N40.0 [place] [address] [address] Apr, [facility] [id number] [place] [address] Mar, [facility] [id number] [place] [address] Mar, [place] [id number] [place] [address] Mar, [facility] [id number] [place] [address] Mar, Acute right-sided low back pain with right-sided sciatica M54.41 [place] [id number] [place] [address] Mar, Low back pain M54.5 [facility] [id number] [place] [address] Mar, Muscle strain of chest wall, initial encounter S29.011A ; Muscle strain of right thigh, initial encounter S76.911A and Acute non-recurrent maxillary sinusitis J01.00 [place] [id number] [place] [address] Mar, Benign prostatic hyperplasia, presence of lower urinary tract symptoms unspecified, unspecified morphology N40.0 [place] [id number] [place] [address] Jan, Low back pain M54.5 [place] [id number] [place] [address] 13 Jan, 2016 Low back pain M54.5 ; Essential hypertension I10 ; Hyperlipidemia, unspecified E78.5 ; Anxiety F41.9 ; Moderate episode of recurrent major depressive disorder F33.1 ; Primary insomnia F51.01 ; Exposure to STD Z20.2 ; Encounter for hepatitis C screening test for low risk patient Z11.59 and History of herpes genitalis Z86.19 [place] [id number] [place] [address] Dec, [facility] [id number] [place] [address] Nov, [facility] [address] [address] Nov, Anxiety F41.9 ; Cervicalgia M54.2 ; Moderate episode of recurrent major depressive disorder F33.1 and Encounter for immunization Z23 [facility] [address] [address] Oct, [facility] [address] [address] 22 Nov, 2015 [facility] [address] [address] 16 Nov, 2015 [facility] [address] [address] Oct, [facility] [address] [address] Sep, [facility] [id number] [place] [address] Aug, Low back pain M54.5 ; Anxiety F41.9 ; Primary insomnia F51.01 and Chronic prescription opiate use Z79.899 [facility] [id number] [place] [address] Jul, [facility] [id number] [place] [address] Jul, [facility] [id number] [place] [address] Jul, [facility] [id number] [place] [address] Jul, [facility] [id number] [place] [address] Jul, [facility] [address], [place] [address] June, [facility] [id number] [place] [address] June, [facility] [address] [address] June, [facility] [id number] [place] [address] June, [facility] [id number] [place] [address] May, Preoperative cardiovascular examination Z01.810 [facility] [id number] [place] [address] May, [facility] [id number] [place] [address] Apr, [facility] [id number] [place] [address] Apr, Osteoarthritis of right knee M17.9 [facility] [id number] [address] Apr, [facility] [id number] [place] [address] Apr, [facility] [address], [place] [address] Apr, [facility] [id number] [address] Apr, [facility] [address], [place] [address] Apr, History of excessive cerumen Z78.9 ; Obstructive sleep apnea syndrome G47.33 ; History of diverticulitis Z87.19 and Nephrolithiasis N20.0 [facility] [address], [place] [address] Apr, [facility] [address], [place] [address] 23 Apr, 2015 Abdominal pain R10.9 [facility] [id number] [place] [address] 10 Apr, 2015 [facility] [id number] [place] [address] 04 Apr, 2015 Osteoarthritis of right knee M17.9 [facility] [id number] [place] [address] Mar, [place] [id number] [place] [address] 15 Mar, 2015 [place] [id number] [place] [address] 14 Mar, 2015 [place] [id number] [place] [address] Mar, [facility] [id number] [place] [address] Mar, Pyelonephritis N12 ; Left-sided thoracic back pain M54.6 ; Hematuria, unspecified R31.9 and Kidney stone N20.0 [place] [id number] [place] [address] Mar, History of weight loss surgery Z98.84 [facility] [id number] [place] [address] Mar, History of weight loss surgery Z98.84 and Hyperlipidemia, unspecified E78.5 [facility] [id number] [place] [address] Mar, Low back pain M54.5 ; Chronic prescription opiate use Z79.899 ; Hyperlipidemia, unspecified E78.5 ; Spasm of back muscles M62.830 and History of weight loss surgery Z98.84 [place] [facility] [id number] [place] [id number] Jan, [facility] [address] [address] Jan, [facility] [id number] [place] [phone] Jan, [facility] [id number] [address] Dec, [facility] [id number] [place] [phone] Dec, [facility] [id number] [place] [id number] Dec, [facility] [id number] [place] [id number] Nov, [facility] [id number] [place] [phone] Nov, Obstructive sleep apnea syndrome G47.33 and Pharyngoesophageal dysphagia R13.14 [facility] [id number] [address] Nov, [facility] [id number] [place] [phone] Nov, [facility] [id number] [address] Nov, [facility] [id number] [place] [id number] Oct, 2014 Dental examination V72.2 [facility] [id number] [address] Oct, [facility] [id number] [place] [phone] Oct, [facility] [id number] [address] Oct, [facility] [id number] [place] [id number] Oct, [facility] [id number] [place] [id number] Oct, BPH (benign prostatic hyperplasia) 600.00 and Urinary frequency 788.41 [facility] [id number] [place] [id number] Oct, [facility] [id number] [place] [address] Oct, [facility] [id number] [place] [address] Oct, [facility] [id number] [place] [address] Sep, Cerumen impaction 380.4 ; Cerumen debris on tympanic membrane 380.4 ; Psoriasis 696.1 and MICKY (secretory otitis media) 381.4 [facility] [id number] [place] [id number] Sep, Dental examination V72.2 [facility] [id number] [place] [address] Sep, Fatigue 780.79 ; Irritable bowel syndrome 564.1 ; Overweight 278.02 ; Poor sleep V69.4 ; Shaking spells 781.0 and Broken tooth 873.63 [facility] [address] [address] Sep, [facility] [id number] [place] [address] Sep, [facility] [id number] [place] [address] Aug, [facility] [id number] [place] [address] Jul, [facility] [id number] [address] Jul, [facility] [id number] [address] Jul, [facility] [id number] [address] Jul, [facility] [id number] [address] June, Arthritis of knee, right 716.96 [facility] [id number] [address] June, [facility] [id number] [address] June, Elevated blood pressure reading without diagnosis of hypertension 796.2 [facility] [id number] [address] June, [facility] [id number] [address] June, [facility] [id number] [address] June, [facility] [id number] [address] June, [facility] [id number] [address] May, [facility] [id number] [address] May, [facility] [id number] [address] Apr, [facility] [address] [id number] [place] [address] Apr, [facility] [id number] [address] Apr, [facility] [id number] [address] Apr, [facility] [address] [facility] [id number] [place] [address] 20 Apr, 2014 [facility] [place] [facility] [address] [id number] [place] [address] Apr, 2014 [facility] [place] [facility] [address] [id number] [place] [address] Apr, 2014 [facility] [place] [facility] [address] [id number] [place] [address] Apr, 2014 [facility] [place] [facility] [address] [id number] [place] [address] Apr, 2014 [facility] [place] [facility] [address] [facility] [id number] [place] [address] Apr, 2014 [facility] [place] [facility] [address] [facility] [id number] [place] [address] Apr, 2014 [facility] [place] [facility] [address] [facility] [id number] [place] [address] Apr, 2014 [facility] [place] [facility] [address] [facility] [id number] [place] [address] 24 Apr, 2014 [facility] [place] [facility] [address] [facility] [id number] [place] [address] 24 Apr, 2014 [facility] [place] [facility] [id number] [address] Apr, 2014 [facility] [place] [facility] [address] [facility] [id number] [place] [address] 23 Apr, 2014 [facility] [place] [facility] [address] [facility] [id number] [place] [address] 20 Apr, 2014 [facility] [place] [facility] [address] [facility] [id number] [place] [address] 20 Apr, 2014 [facility] [place] [facility] [address] [facility] [id number] [place] [address] 18 Apr, 2014 [facility] [place] [facility] [address] [facility] [id number] [place] [address] 18 Apr, 2014 [facility] [place] [facility] [address] [id number] [place] [address] Apr, 2014 [facility] [place] [facility] [address] [id number] [place] [address] Apr, 2014 [facility] [place] [facility] [address] [facility] [id number] [place] [address] Apr, 2014 [facility] [place] [facility] [address] [id number] [place] [address] Apr, 2014 [facility] [place] [facility] [address] [id number] [place] [address] Apr, 2014 [facility] [place] [facility] [address] [id number] [place] [address] Apr, 2014 [facility] [place] [facility] [address] [facility] [id number] [place] [address] Apr, 2014 [facility] [place] [facility] [address] [facility] [id number] [place] [address] Apr, 2014 [facility] [place] [facility] [address] [facility] [id number] [place] [address] Apr, 2014 [facility] [place] [facility] [address] [facility] [id number] [place] [address] Apr, 2014 [facility] [place] [facility] [address] [facility] [id number] [place] [address] Apr, 2014 [facility] [place] [facility] [address] [facility] [id number] [place] [address] Apr, 2014 [facility] [place] [facility] [address] [id number] [place] [address] Apr, 2014 [facility] [place] [facility] [address] [facility] [id number] [place] [address] Mar, [facility] [place] [facility] [address] [facility] [id number] [place] [address] Mar, [facility] [place] [facility] [address] [id number] [place] [address] Mar, [facility] [place] [facility] [address] [id number] [place] [address] Mar, [facility] [place] [facility] [address] [id number] [place] [address] Mar, [facility] [place] [facility] [address] [id number] [place] [address] Mar, [facility] [place] [facility] [address] [id number] [place] [address] Mar, [facility] [place] [facility] [address] [id number] [place] [address] Mar, [facility] [place] [facility] [address] [id number] [place] [address] Mar, [facility] [place] [facility] [address] [id number] [place] [address] Mar, [facility] [place] [facility] [address] [id number] [place] [address] Jan, [facility] [place] [facility] [address] [id number] [place] [address] Jan, [facility] [place] [facility] [address] [id number] [place] [address] Jan, [facility] [place] [facility] [address] [id number] [address] Jan, [facility] [place] [facility] [address] [id number] [place] [address] Jan, [facility] [place] [facility] [address] [id number] [place] [address] Jan, [facility] [place] [facility] [address] [id number] [place] [address] Jan, [facility] [place] [facility] [address] [id number] [place] [address] 05 Jan, 2014 [facility] [place] [facility] [address] [id number] [place] [address] 05 Jan, 2014 [facility] [place] [facility] [address] [id number] [place] [address] Jan, [facility] [place] [facility] [address] [id number] [place] [address] Jan, [facility] [place] [facility] [address] [id number] [place] [address] Jan, [facility] [place] [facility] [address] [id number] [place] [address] Dec, [facility] [place] [facility] [address] [id number] [place] [address] Dec, [facility] [place] [facility] [address] [id number] [place] [address] Dec, [facility] [place] [facility] [address] [id number] [place] [address] Dec, [facility] [place] [facility] [address] [id number] [place] [address] Dec, [facility] [place] [facility] [address] [facility] [id number] [place] [address] Dec, [facility] [place] [facility] [address] [id number] [place] [address] Dec, [facility] [place] [facility] [address] [id number] [address] Dec, [facility] [place] [facility] [address] [id number] [place] [address] Dec, [facility] [place] [facility] [address] [id number] [place] [address] Dec, [facility] [place] [facility] [address] [id number] [place] [address] Nov, [facility] [place] [facility] [address] [id number] [place] [address] 31 Nov, 2013 [facility] [place] [facility] [address] [id number] [place] [address] Nov, 2013 [facility] [place] [facility] [address] [id number] [place] [address] Nov, 2013 [facility] [place] [facility] [address] [id number] [place] [address] Nov, [facility] [place] [facility] [address] [id number] [place] [address] Nov, 2013 [facility] [place] [facility] [address] [id number] [place] [address] Nov, [facility] [place] [facility] [address] [id number] [place] [address] Nov, [facility] [place] [facility] [address] [id number] [place] [address] Nov, [facility] [place] [facility] [address] [id number] [place] [address] 24 Nov, 2013 [facility] [place] [facility] [address] [id number] [place] [address] Nov, 2013 [facility] [place] [facility] [address] [id number] [place] [address] 17 Nov, 2013 [facility] [place] [facility] [address] [id number] [place] [address] 14 Nov, 2013 [facility] [place] [facility] [address] [id number] [place] [address] 14 Nov, 2013 [facility] [place] [facility] [address] [id number] [place] [address] 10 Nov, 2013 [facility] [place] [facility] [address] [id number] [place] [address] 10 Nov, 2013 [facility] [place] [facility] [address] [id number] [place] [address] 08 Nov, 2013 [facility] [place] [facility] [address] [id number] [place] [address] Nov, [facility] [place] [facility] [address] [id number] [place] [address] Nov, [facility] [place] [facility] [address] [id number] [place] [address] Nov, [facility] [place] [facility] [address] [id number] [place] [address] Oct, [facility] [place] [facility] [address] [id number] [place] [address] Oct, [facility] [place] [facility] [address] [id number] [place] [address] Oct, [facility] [place] [facility] [address] [id number] [place] [address] Oct, [facility] [place] [facility] [address] [id number] [place] [address] Oct, [facility] [place] [facility] [address] [id number] [place] [address] Oct, [facility] [place] [facility] [address] [id number] [place] [address] Oct, [facility] [place] [facility] [address] [id number] [place] [address] Oct, [facility] [place] [facility] [address] [id number] [address] Oct, [facility] [place] [facility] [address] [id number] [place] [address] Oct, [facility] [place] [facility] [address] [id number] [place] [address] Sep, [facility] [place] [facility] [address] [id number] [place] [address] Sep, [facility] [place] [facility] [address] [id number] [place] [address] Sep, [facility] [place] [facility] [address] [id number] [place] [address] Sep, [facility] [place] [facility] [address] [id number] [place] [address] Sep, [facility] [place] [facility] [address] [id number] [place] [address] Sep, [facility] [place] [facility] [address] [id number] [place] [address] Sep, [facility] [place] [facility] [address] [id number] [place] [address] Sep, [facility] [place] [facility] [address] [id number] [place] [address] Sep, [facility] [place] [facility] [address] [id number] [place] [address] Sep, [facility] [place] [facility] [address] [id number] [place] [address] Sep, [facility] [place] [facility] [address] [id number] [place] [address] Sep, [facility] [place] [facility] [address] [id number] [place] [address] Sep, [facility] [place] [facility] [address] [id number] [place] [address] Sep, [facility] [place] [facility] [address] [id number] [place] [address] Sep, [facility] [place] [facility] [address] [id number] [place] [address] Sep, [facility] [place] [facility] [address] [id number] [place] [address] Sep, [facility] [place] [facility] [address] [id number] [place] [address] Sep, [facility] [place] [facility] [address] [id number] [place] [address] Sep, [facility] [place] [facility] [address] [id number] [place] [address] Sep, [facility] [place] [facility] [address] [id number] [place] [address] Sep, [facility] [place] [facility] [address] [id number] [place] [address] Sep, [facility] [place] [facility] [address] [id number] [place] [address] Sep, [facility] [place] [facility] [address] [id number] [place] [address] Sep, [facility] [place] [facility] [address] [id number] [place] [address] Sep, [facility] [place] [facility] [address] [id number] [place] [address] Aug, [facility] [place] [facility] [address] [id number] [place] [address] Aug, [facility] [place] [facility] [address] [id number] [place] [address] Aug, [facility] [place] [facility] [address] [id number] [place] [address] Aug, [facility] [place] [facility] [address] [id number] [place] [address] Aug, [facility] [place] [facility] [address] [id number] [place] [address] Aug, [facility] [place] [facility] [address] [id number] [place] [address] Aug, [facility] [place] [facility] [address] [id number] [place] [address] Aug, [facility] [place] [facility] [address] [id number] [place] [address] Aug, [facility] [place] [facility] [address] [id number] [place] [address] Aug, [facility] [place] [facility] [address] [id number] [place] [address] Aug, [facility] [place] [facility] [address] [id number] [place] [address] Aug, [facility] [place] [facility] [address] [id number] [place] [address] Aug, [facility] [place] [facility] [address] [id number] [place] [address] Jul, [facility] [place] [facility] [address] [id number] [place] [address] Jul, [facility] [place] [facility] [address] [id number] [place] [address] Jul, [facility] [place] [facility] [address] [id number] [place] [address] Jul, [facility] [place] [facility] [address] [id number] [place] [address] Jul, [facility] [place] [facility] [address] [id number] [place] [address] Jul, [facility] [place] [facility] [address] [id number] [place] [address] Jul, [facility] [place] [facility] [address] [id number] [place] [address] June, [facility] [place] [facility] [address] [id number] [place] [address] June, [facility] [place] [facility] [address] [id number] [place] [address] June, [facility] [place] [facility] [address] [id number] [place] [address] June, [facility] [place] [facility] [address] [id number] [place] [address] May, [facility] [place] [facility] [address] [id number] [place] [address] May, [facility] [place] [facility] [address] [id number] [place] [address] May, [facility] [place] [facility] [address] [id number] [place] [address] May, [facility] [place] [facility] [address] [id number] [place] [address] May, [facility] [place] [facility] [address] [id number] [place] [address] May, [facility] [place] [facility] [address] [id number] [place] [address] May, [facility] [place] [facility] [address] [id number] [place] [address] May, [facility] [place] [facility] [address] [id number] [place] [address] May, [facility] [place] [facility] [address] [id number] [place] [address] May, [facility] [place] [facility] [address] [id number] [place] [address] Apr, [facility] [place] [facility] [address] [id number] [place] [address] Apr, [facility] [place] [facility] [address] [id number] [place] [address] Apr, [facility] [place] [facility] [address] [id number] [place] [address] Apr, [facility] [place] [facility] [address] [id number] [place] [address] Apr, [facility] [place] [facility] [address] [id number] [place] [address] Apr, [facility] [place] [facility] [address] [id number] [place] [address] Apr, [facility] [place] [facility] [address] [id number] [place] [address] Apr, [facility] [place] [facility] [address] [id number] [place] [address] Apr, [facility] [place] [facility] [address] [id number] [place] [address] Apr, [facility] [place] [facility] [address] [id number] [place] [address] Mar, [facility] [place] [facility] [address] [id number] [place] [address] Mar, [facility] [place] [facility] [address] [id number] [place] [address] Mar, [facility] [place] [facility] [address] [id number] [place] [address] Mar, [facility] [place] [facility] [address] [id number] [place] [address] Mar, [facility] [place] [facility] [address] [facility] [id number] [place] [address] Mar, [facility] [place] [facility] [address] [id number] [place] [address] Jan, [facility] [place] [facility] [address] [id number] [place] [address] Jan, [facility] [place] [facility] [address] [id number] [place] [address] Jan, [facility] [place] [facility] [address] [id number] [place] [address] Jan, [facility] [place] [facility] [address] [id number] [place] [address] Jan, [facility] [place] [facility] [address] [id number] [place] [address] Jan, [facility] [address] [id number] [place] [address] Jan, [facility] [address] [id number] [place] [address] Jan, [facility] [address] [id number] [place] [address] Jan, [facility] [address] [id number] [place] [address] Dec, [facility] [address] [id number] [place] [address] Dec, [facility] [address] [id number] [place] [address] Dec, [facility] [address] [id number] [place] [address] Dec, [facility] [address] [id number] [place] [address] Dec, [facility] [address] [id number] [place] [address] Dec, [facility] [address] [facility] [id number] [place] [address] Dec, [facility] [address] [id number] [place] [address] Dec, [facility] [address] [id number] [address] 05 Dec, 2012 [facility] [place] [facility] [address] [id number] [place] [address] 05 Dec, 2012 [facility] [address] [id number] [place] [address] 04 Dec, 2012 [facility] [place] [facility] [address] [id number] [place] [address] Nov, [facility] [place] [facility] [address] [id number] [place] [address] Nov, [facility] [place] [facility] [address] [id number] [place] [address] Nov, [facility] [place] [facility] [address] [id number] [place] [address] Nov, [facility] [place] [facility] [address] [id number] [place] [address] Nov, [facility] [place] [facility] [address] [id number] [place] [address] Oct, [facility] [place] [facility] [address] [id number] [place] [address] Oct, [facility] [place] [facility] [address] [id number] [place] [address] Sep, [facility] [place] [facility] [address] [id number] [place] [address] Aug, [facility] [place] [facility] [address] [id number] [place] [address] Aug, [facility] [place] [facility] [address] [id number] [place] [address] Aug, [facility] [place] [facility] [address] [id number] [place] [address] Aug, [facility] [place] [facility] [address] [id number] [place] [address] Jul, [facility] [place] [facility] [address] [id number] [place] [address] Jul, [facility] [place] [facility] [address] [id number] [place] [address] June, [facility] [place] [facility] [address] [id number] [place] [address] June, [facility] [place] [facility] [address] [id number] [place] [address] June, [facility] [address] [id number] [place] [address] 08 May, 2012 [facility] [address] [id number] [place] [address] 04 May, 2012 [facility] [address] [id number] [place] [address] May, [facility] [address] [id number] [place] [address] 18 Apr, 2012 [facility] [address] [id number] [place] [address] 18 Apr, 2012 [facility] [address] [id number] [place] [address] 15 Apr, 2012 [facility] [id number] [address] 14 Apr, 2012 [facility] [address] [facility] [id number] [place] [address] Apr, [facility] [id number] [address] 27 Apr, 2012 [facility] [id number] [address] Apr, [facility] [id number] [address] Apr, [facility] [address] [facility] [id number] [address] 21 Apr, 2012 [facility] [place] [facility] [address] [id number] [place] [address] 20 Apr, 2012 [facility] [place] [facility] [address] [facility] [id number], [place] [address] 19 Apr, 2012 [facility] [id number] [address] 07 Apr, 2012 [facility] [address] [id number] [place] [address] 07 Apr, 2012 [facility] [place] [facility] [address] [id number] [place] [address] Mar, [facility] [place] [facility] [address] [id number] [place] [address] Mar, [facility] [place] [facility] [address] [id number] [place] [address] Mar, [facility] [address] [id number] [place] [address] Mar, [facility] [place] [facility] [address] [id number] [place] [address] Mar, [facility] [place] [facility] [address] [id number] [place] [address] Jan, [facility] [place] [facility] [address] [id number] [place] [address] 28 Jan, 2012 [facility] [place] [facility] [address] [id number] [place] [address] Jan, [facility] [place] [facility] [address] [id number] [place] [address] 22 Jan, 2012 [facility] [place] [facility] [address] [id number] [place] [address] 14 Jan, 2012 [facility] [place] [facility] [address] [id number] [place] [address] 13 Jan, 2012 [facility] [place] [facility] [address] [id number] [place] [address] 13 Jan, 2012 [facility] [place] [facility] [address] [id number] [place] [address] 11 Jan, 2012 [facility] [place] [facility] [address] [id number] [place] [address] 06 Jan, 2012 [facility] [place] [facility] [address] [id number] [address] 06 Jan, 2012 [facility] [place] [facility] [address] [id number] [place] [address] 04 Jan, 2012 [facility] [place] [facility] [address] [id number] [place] [address] 04 Jan, 2012 [facility] [place] [facility] [address] [id number] [place] [address] 04 Jan, 2012 [facility] [place] [facility] [address] [id number] [place] [address] 04 Jan, 2012 [facility] [place] [facility] [address] [id number] [place] [address] 26 Jan, 2012 [facility] [place] [facility] [address] [id number] [place] [address] 26 Jan, 2012 [facility] [place] [facility] [address] [id number], [place] [address] 19 Jan, 2012 [facility] [place] [facility] [address] [id number], [place] [address] 19 Jan, 2012 [facility] [place] [facility] [address] [id number] [place] [address] 15 Jan, 2012 [facility] [place] [facility] [address] [facility] [id number] [place] [address] 15 Jan, 2012 [facility] [place] [facility] [address] [id number] [place] [address] 14 Jan, 2012 [facility] [place] [facility] [address] [id number], [place] [address] 14 Jan, 2012 [facility] [place] [facility] [address] [id number], [place] [address] 14 Jan, 2012 [facility] [place] [facility] [address] [id number], [place] [address] 14 Jan, 2012 [facility] [place] [facility] [address] [id number], [place] [address] 07 Jan, 2012 [facility] [place] [facility] [address] [id number] [place] [address] Dec, [facility] [place] [facility] [address] [id number] [place] [address] 16 Dec, 2011 [facility] [place] [facility] [address] [id number] [place] [address] 16 Dec, 2011 [facility] [place] [facility] [address] [id number] [place] [address] 13 Nov, 2011 [facility] [place] [facility] [address] [id number] [place] [address] 13 Nov, 2011 [facility] [place] [facility] [address] [id number] [place] [address] 13 Nov, 2011 [facility] [place] [facility] [address] [id number] [place] [address] 12 Nov, 2011 [facility] [place] [facility] [address] [id number] [place] [address] Sep, [facility] [place] [facility] [address] [id number] [place] [address] Sep, [facility] [place] [facility] [address] [id number] [place] [address] Aug, [facility] [place] [facility] [address] [id number] [place] [address] Aug, [facility] [place] [facility] [address] [id number] [place] [address] Aug, [facility] [place] [facility] [address] [id number] [place] [address] Aug, [facility] [place] [facility] [address] [id number] [place] [address] June, [facility] [place] [facility] [address] [id number] [place] [address] June, [facility] [place] [facility] [address] [id number] [place] [address] May, [facility] [address] [id number] [place] [address] Apr, [facility] [place] [facility] [address] [id number] [place] [address] Apr, [facility] [place] [facility] [address] [id number] [place] [address] Apr, [facility] [place] [facility] [address] [id number] [place] [address] Apr, [facility] [place] [facility] [address] [id number] [place] [address] Apr, [facility] [place] [facility] [address] [id number] [place] [address] Apr, [facility] [place] [facility] [address] [id number] [place] [address] Mar, [facility] [place] [facility] [address] [id number] [place] [address] Mar, [facility] [place] [facility] [address] [id number] [place] [address] Mar, [facility] [place] [facility] [address] [id number] [place] [address] Jan, [facility] [place] [facility] [address] [id number] [place] [address] Jan, [facility] [place] [facility] [address] [id number], [place] [address] Jan, [facility] [place] [facility] [address] [id number] [place] [address] Jan, [facility] [place] [facility] [address] [facility] [id number] [place] [address] Jan, [facility] [place] [facility] [address] [facility] [id number] [place] [address] Jan, [facility] [place] [facility] [address] [id number] [place] [address] 12 Jan, 2011 [facility] [address] [id number] [place] [address] Dec, [facility] [place] [facility] [address] [id number] [place] [address] Dec, [facility] [address] [id number] [place] [address] Nov, [facility] [place] [facility] [address] [id number] [place] [address] Nov, [facility] [address] [id number] [place] [address], [place] [address] Nov, [facility] [place] [facility] [address] [id number] [place] [address] Nov, [facility] [place] [facility] [address] [id number] [place] [address] Oct, [facility] [place] [facility] [address] [id number] [place] [address] Sep, [facility] [place] [facility] [address] [id number] [place] [address] Mar, [facility] [address] [id number] [place] [address] Jan, [facility] [place] [facility] [address] [id number] [place] [address] Dec, [facility] [place] [facility] [address] [id number] [place] [address] Dec, [facility] [place] [facility] [address] [id number] [place] [address] Dec, [facility] [place] [facility] [address] [id number] [place] [address] Dec, [facility] [place] [facility] [address] [id number] [place] [address] Nov, [facility] [address] [id number] [place] [address] 15 Nov, 2009 [facility] [place] [facility] [address] [id number] [place] [address] 14 Nov, 2009 [facility] [place] [facility] [address] [id number] [place] [address] 14 Nov, 2009 [facility] [place] [facility] [address] [id number] [place] [address] 13 Oct, 2009 [facility] [place] [facility] [address] [id number] [place] [address] 17 Jul, 2009 [facility] [place] [facility] [address] [id number] [place] [address] 17 Jun, 2009 [facility] [place] [facility] [address] [facility] [id number] [place] [address] June, [facility] [place] [facility] [address] [id number], [place] [address] 17 Apr, 2009 [facility] [place] [facility] [address] [id number], [place] [address] Mar, [facility] [place] [facility] [address] [facility] [id number], [place] [address] 24 Jan, 2009 [facility] [place] [facility] [address] [id number], [place] [address] Jan, [facility] [place] [facility] [address] [id number], [place] [address] 27 Dec, 2008 [facility] [place] [facility] [address] [id number], [place] [address] Dec, [facility] [place] [facility] [address] [id number], [place] [address] 13 Dec, 2008 [facility] [place] [facility] [address] [facility] [id number], [place] [address] 13 Dec, 2008 [facility] [place] [facility] [address] [id number], [place] [address] Nov, [facility] [address] [facility] [id number] [place] [address] Jul, [facility] [address] [facility] [id number] [place] [address] June, IMMUNIZATIONS No Known Immunizations SOCIAL HISTORY Never Assessed REASON FOR VISIT EMR-[facility] [place] PLAN OF CARE VITAL SIGNS MEDICATIONS Unknown Medications RESULTS No Results PROCEDURES No Known procedures INSTRUCTIONS MEDICATIONS ADMINISTERED No Known Medications MEDICAL (GENERAL) HISTORY Type Description Date Medical History hypertension Medical History sleep apnea-did not tolerate CPAP Medical History oxygen dependent at [facility] Medical History colonic polyps Medical [...]
--- NOTE | 2018-08-23 17:30 | ED Respiratory ---
General Stated Complaint: SOB/CP Source: patient Exam Limitations: no limitations (MIGUEL ZARATE) History of Present Illness Date Seen by Provider: Aug 23, 2018 Time Seen by Provider: 17:05 Initial Comments The patient presents to ER by EMS from [facility] where he can complaint of shortness of breath and they sent him over because he is also complaining of chest pain. EKG obtained at the time showed normal sinus rhythm. Patient is not endorsing chest home and says shortness of breath at rest or when exerting himself. He has a history of pulmonary asbestosis followed by a budget and policy analyst at the OR but it's been over a year since she's been seen. His primary care is through [facility] and the OR. He says he was recently started on Abilify and he believes that it is the source of his shortness of breath. He has been prescribed multiple inhalers but he stopped them over a year ago because did not feel it would help. Few months ago he started using his albuterol again 6 puffs at a time several times a day and he feels like that is helping. He does not use a spacer. He says he ran out about 3 weeks ago. His shortness of breath started 3 weeks ago and is slowly gotten progressively worse. Today he was just tired of being short of breath. He does not use oxygen at baseline but does use CPAP 11 cm water pressure at night. Nursing reports oxygen sats got as low as 91% when lying flat. He has increased swelling in his legs over normal but denies a history of heart failure or coronary disease. He denies using diuretics. He has a history of COPD but denies any wheezing recently. (MIGUEL ZARATE) Allergies and Home Medications Allergies Coded Allergies: Penicillins (Unverified Allergy, Mild, 07/04/09) ampicillin (Unverified Allergy, Mild, RASH, 04/22/09) sulfacetamide (Verified Allergy, Mild, "MADE ME FEEL BAD", 03/19/15) egg (Unverified Allergy, Unknown, 07/19/15) FROM UNCODED ALLERGIES Home Medications Albuterol Sulfate 1 Puff Puff, 2 PUFF INH Q4H 1 PUFF = 90 MCG Prescribed by: KRISTINA RICHARDS on 08/23/181925 Allopurinol 100 Mg Tab, 100 MG PO DAILY, (Reported) Azithromycin 250 Mg Tablet, 250 MG PO UD TAKE 2 TABLETS ON DAY ONE THEN TAKE 1 TABLET DAILY FOR FOUR MORE DAYS Prescribed by: KRISTINA RICHARDS on 08/23/182014 Cholecalciferol (Vitamin D3) 5,000 Unit Tablet, 5,000 UNIT PO DAILY, (Reported) Ciprofloxacin HCl 250 Mg Tablet, 250 MG PO BID . Prescribed by: MIESHA PARKS on 11/02/162304 Clonazepam 0.5 Mg Tablet, 0.5 MG PO HS, (Reported) NEEDED FOR ANXIETY Diclofenac Sodium 75 Mg Tablet.dr, 75 MG PO BID, (Reported) Garlic 2,000 Mg Capsule, 2,000 MG PO DAILY, (Reported) Mometasone Furoate 17 Gm Points, 1 SPRAY NSEACH HS, (Reported) Multivitamin 1 Each Tablet, 2 EACH PO BID, (Reported) Naproxen Sodium 550 Mg Tablet, 550 MG PO BID Prescribed by: FAUSTINO BRYAN on 03/16/16 175 Omeprazole 20 Mg Capsule.dr, 20 MG PO BID, (Reported) Oxycodone Hcl/Acetaminophen 1 Each Tablet, 1 EACH PO Q6HR PRN PRN for PAIN, (Reported) Prednisone 20 Mg Tab, 40 MG PO DAILY Prescribed by: NASIR DOMINIQUE on 10/28/16 1304 Prednisone 20 Mg Tab, 20 MG PO BID Prescribed by: MIGUEL ZARATE on 02/26/182015 Tamsulosin HCl 0.4 Mg Cap.er.24h, 0.4 MG PO DAILY, (Reported) Tamsulosin HCl 0.4 Mg Cap, 0.4 MG PO DAILY . Prescribed by: MIESHA PARKS on 11/02/162304 Trazodone HCl 150 Mg Tablet, 150 MG PO HS, (Reported) Trazodone Hcl 150 Mg Tablet, 150 MG PO HS, (Reported) Patient Home Medication List Home Medication List Reviewed: Yes (MIGUEL ZARATE) Review of Systems Review of Systems Constitutional: No chills, No diaphoresis, No fever, No malaise EENTM: nose congestion; No ear discharge, No ear pain Respiratory: No cough; short of breath; No wheezing Cardiovascular: see HPI, chest pain, palpitations Gastrointestinal: No abdominal pain, No constipation, No diarrhea; nausea; No vomiting Genitourinary: No dysuria, No frequency Musculoskeletal: No back pain, No joint pain (MIGUEL ZARATE) Past [place]-Cw[place]ow-[place] Hx Patient Social History Alcohol Use: Denies Use Recreational Drug Use: No Smoking Status: Never a Smoker Recent Foreign Travel: No Contact w/Someone Who Travel: No Recent Hopitalizations: No (MIGUEL ZARATE) Immunizations Up To Date Tetanus Booster (TDap): Less than 5yrs Date of Pneumonia Vaccine: Mar 19, 2013 (MIGUEL ZARATE) Seasonal Allergies Seasonal Allergies: Yes (MIGUEL ZARATE) Past Medical History Surgeries: Yes (HERNIA REPAIR, SINUS, FOOT, BARIATRIC, KNEE SCOPE, CYSTO) Abdominal, Adenoidectomy, Bladder Surgery, Gallbladder, Orthopedic, Renal, Tonsillectomy Respiratory: Yes (USES CPAP) Sleep Apnea Cardiac: Yes (2011-FROM FALL, TOOK COUMADIN FOR 6MONTHS) Deep Vein Thrombosis, High Cholesterol, Hypertension Neurological: No Reproductive Disorders: No Sexually Transmitted Disease: No HIV/AIDS: No Benign Prostatic Hyperpl, Bladder Infection, Kidney Stones Gastrointestinal: Yes (HAS HAD GASTRIC SLEEVE) Gastroesophageal Reflux, Chronic Constipation, Diverticulosis, Polyps, Hiatal Hernia, Irritable Bowel Musculoskeletal: Yes (ARTHRITIS IN KNEES AND BACK) Arthritis, Chronic Back Pain, Gout Endocrine: No Loss of Vision: Bilateral Hearing Impairment: Denies Cancer: No Psychosocial: Yes Sleep Difficulties, Anxiety, Depression Integumentary: Yes (RED PATCHES ON FACE) Blood Disorders: No Adverse Reaction/Blood Tranf: No (MIGUEL ZARATE) Family Medical History Arthritis 19 MOTHER Cardiovascular disease 19 MOTHER Colon cancer 19 FATHER 19 MOTHER G8 SISTER Dementia 19 MOTHER Hypertension 19 MOTHER G8 BROTHER Respiratory disorder 19 FATHER (lung ca) Thyroid disease 19 MOTHER No Pertinent Family Hx (MIGUEL ZARATE) Physical Exam Vital Signs - First Documented 08/23/18 16:51 Temp 98.0 Pulse 72 Resp 15 B/P (MAP) 192/108 (136) Pulse Ox 94 O2 Delivery Room Air (KRISTINA RICHARDS) Capillary Refill : (MIGUEL ZARATE) Height: 5'10.00" Weight: 330lbs. 6.0oz. 149.148075sg; 38.9 BMI Method:Stated General Appearance: obese, other (chronically ill) Eyes: Bilateral Eye Normal Inspection, Bilateral Eye PERRL, Bilateral Eye EOMI HEENT: PERRL/EOMI, normal ENT inspection, pharynx normal Neck: non-tender, full range of motion, normal inspection Respiratory: lungs clear, normal breath sounds, no respiratory distress, no accessory muscle use, other (mild chest wall tenderness) Cardiovascular: normal peripheral pulses, regular rate, rhythm, no murmur, other (to plus pitting edema) Gastrointestinal: normal bowel sounds, non tender, soft Extremities: normal range of motion, non-tender, normal capillary refill, pedal edema (2+ bilateral lower extremity edema up to the knee) Neurologic/Psychiatric: alert, normal mood/affect, oriented x 3 Skin: normal color, warm/dry (MIGUEL ZARATE) Progress/Results/Core Measures Suspected Sepsis SIRS Temperature: Pulse: Respiratory Rate: Blood Pressure / Mean: (MIGUEL ZARATE) Results/Orders Lab Results Laboratory Tests Test 08/23/18 17:25 08/23/18 17:30 08/23/18 17:50 08/23/18 20:14 Range/Units Urine Color YELLOW Urine Clarity SLIGHTLY CLOUDY Urine pH 6 5-9 Urine Specific [place] 1.010 L 1.016-1.022 Urine Protein NEGATIVE NEGATIVE Urine Glucose (UA) NEGATIVE NEGATIVE Urine Ketones NEGATIVE NEGATIVE Urine Nitrite NEGATIVE NEGATIVE Urine Bilirubin NEGATIVE NEGATIVE Urine Urobilinogen NORMAL NORMAL MG/DL Urine Leukocyte Esterase NEGATIVE NEGATIVE Urine RBC (Auto) NEGATIVE NEGATIVE Urine RBC NONE /HPF Urine WBC NONE /HPF Urine Squamous Epithelial Cells RARE /HPF Urine Crystals NONE /LPF Urine Bacteria NEGATIVE /HPF Urine Casts NONE /LPF Urine Mucus NEGATIVE /LPF Urine Culture Indicated NO White Blood Count 6.3 4.3-11.0 10^3/uL Red Blood Count 4.29 L 4.35-5.85 10^6/uL Hemoglobin 14.2 13.3-17.7 G/DL Hematocrit 42 40-54 % Mean Corpuscular Volume 97 80-99 FL Mean Corpuscular Hemoglobin 33 25-34 PG Mean Corpuscular Hemoglobin Concent 34 32-36 G/DL Red Cell Distribution Width 12.9 10.0-14.5 % Platelet Count 202 130-400 10^3/uL Mean Platelet Volume 9.9 7.4-10.4 FL Neutrophils (%) (Auto) 68 42-75 % Lymphocytes (%) (Auto) 22 12-44 % Monocytes (%) (Auto) 7 0-12 % Eosinophils (%) (Auto) 4 0-10 % Basophils (%) (Auto) 1 0-10 % Neutrophils # (Auto) 4.3 1.8-7.8 X 10^3 Lymphocytes # (Auto) 1.4 1.0-4.0 X 10^3 Monocytes # (Auto) 0.4 0.0-1.0 X 10^3 Eosinophils # (Auto) 0.2 0.0-0.3 10^3/uL Basophils # (Auto) 0.0 0.0-0.1 10^3/uL Sodium Level 142 135-145 MMOL/L Potassium Level 4.1 3.6-5.0 MMOL/L Chloride Level 106 98-107 MMOL/L Carbon Dioxide Level 27 21-32 MMOL/L Anion Gap 9 5-14 MMOL/L Blood Urea Nitrogen 15 7-18 MG/DL Creatinine 1.12 0.60-1.30 MG/DL Estimat Glomerular Filtration Rate > 60 BUN/Creatinine Ratio 13 Glucose Level 90 70-105 MG/DL Calcium Level 9.4 8.5-10.1 MG/DL Corrected Calcium 9.5 8.5-10.1 MG/DL Total Bilirubin 0.5 0.1-1.0 MG/DL Aspartate Amino Transf (AST/SGOT) 18 5-34 U/L Alanine Aminotransferase (ALT/SGPT) 13 0-55 U/L Alkaline Phosphatase 85 40-136 U/L Troponin I < 0.028 < 0.028 <0.028 NG/ML C-Reactive Protein High Sensitivity 0.16 0.00-0.50 MG/DL B-Type Natriuretic Peptide 213.3 H <100.0 PG/ML Total Protein 6.8 6.4-8.2 GM/DL Albumin 3.9 3.2-4.5 GM/DL Blood Gas Puncture Site RIGHT RADIAL Blood Gas Patient Temperature 98.0 Arterial Blood pH 7.37 7.37-7.43 Arterial Blood Partial Pressure CO2 47 H 35-45 MMHG Arterial Blood Partial Pressure O2 65 L 79-93 MMHG Arterial Blood HCO3 27 23-27 MMOL/L Arterial Blood Total CO2 28.5 21.0-31.0 MMOL/L Arterial Blood Oxygen Saturation 93 L 94-100 % Arterial Blood Base Excess 2.2 -2.5-2.5 MMOL/L Zain Test POSITIVE Blood Gas Ventilator Setting NO Blood Gas Inspired Oxygen 2 L (MAURICEKRISTINA Richter) My Orders Orders - MAURICE,KRISTINA NICHOLSON Clonidine Tablet (Catapres Tablet) (08/23/18 19:30) Albuterol/Ipra Inhalation Soln (Duoneb I (08/23/18 19:30) Svn Small Volume Nebulizer (08/23/18 19:21) Arterial Blood Draw (08/23/18 17:50) Troponin I (08/23/18 20:12) Oxycodone/Acet 10/325mg Tablet (Percocet (08/23/18 20:15) (KRISTINA RICHARDS) Medications Given in ED Current Medications Medications Dose Ordered Sig/Analilia Route Start Time Stop Time Status Last Admin Dose Admin Albuterol/ Ipratropium 3 ml ONCE ONCE INH 08/23/18 19:30 08/23/18 19:31 DC 08/23/18 19:35 3 ML Clonidine HCl 0.1 mg ONCE ONCE PO 08/23/18 19:30 08/23/18 19:31 DC 08/23/18 19:33 0.1 MG Oxycodone/ Acetaminophen 1 tab ONCE ONCE PO 08/23/18 20:15 08/23/18 20:16 DC 08/23/18 20:31 1 TAB (KRISTINA RICHARDS) Vital Signs/I&O 08/23/18 08/23/18 08/23/18 16:51 16:51 19:35 Temp 98.0 Pulse 72 Resp 15 B/P (MAP) 192/108 (136) Pulse Ox 94 93 O2 Delivery Room Air Room Air Room Air (MAURICEKRISTINA Richter) Vital Signs/I&O Capillary Refill : (MIGUEL ZARATE) Progress Note : Time: 17:41 Progress Note Echocardiogram 2013 Dr. Lake: Technically difficult study. Normal ventricular systolic function with an EF of 65%. History of hyperlipidemia, hypertension, left ventricular diastolic dysfunction, COPD, pulmonary asbestosis, LAILA, gastropathy and esophageal strictures ED ACS 8 points. Low risk score. If the patient also has: (1) EKG without new ischemic changes and (2) negative initial and 2-hour troponins, then this patient is safe for discharge to early outpatient follow-up investigation (or proceed to earlier inpatient testing). If EKG with ischemic changes or positive troponin, they are not low risk and require normal risk stratification. (MIGUEL ZARATE) Progress Note : Progress Note [address] Zarate, assumed care of patient. She denies any chest pain or shortness of breath. He has been complaining SaO2 greater than 97% on 2 L per nasal cannula will decrease to 1 L. He is ambulated to the bathroom with no difficulty. He is requesting discharge to home with follow-up with Dr. Stevenson.Will have RT completed DuoNeb treatment and give clonidine 0.1 mg for hypertension. 1944 patient reports less dyspnea after the breathing treatment. His SaO2 on room air after ambulating to the bathroom at 95-97% we'll keep him on room air. 1999 patient requesting oxycodone for his arthritis pain. He takes this regula rly at home. Repeat troponin ordered. 2044 troponin negative, patient has no chest pain, dyspnea or shortness of air. Discharge instructions and return precautions reviewed with him. All questions answered. (KRISTINA RICHARDS) ECG Initial ECG Impression Date: Aug 23, 2018 Initial ECG Impression Time: 16:57 Initial ECG Rate: 70 Initial ECG Rhythm: Normal Sinus Initial ECG Intervals: Normal Initial ECG Impression: Normal, Nonspecific Changes Initial ECG Comparisson: Unchanged Comment Sinus rhythm without ST elevation or depression. (MIGUEL ZARATE) Diagnostic Imaging Diagonstic Imaging: Xray Plain Films/CT/US/NM/MRI: chest (2V) Comments Cardiomegaly. Possible right lower infiltrate versus atelectasis Reviewed: Reviewed by Me (MIGUEL ZARATE) Comments NAME: ANGEL NATHAN [facility] REC#: [id number] PHYSICIAN: MIGUEL ZARATE MD CC: ЕЛЕНА CARLSON MD; MIGUEL ZARATE Page 1 of 1 RADIOLOGY REPORT [facility]. [place], [place] CC: ЕЛЕНА CARLSON MD; MIGUEL ZARATE Page 1 of 1 RADIOLOGY REPORT NAME: ANGEL NATHAN [facility] REC#: [id number] PT STATUS: REG ER : 1950 PHYSICIAN: MIGUEL ZARATE MD ADMIT DATE: 08/23/18/ER Signed Date of Exam: 08/23/18 CHEST PA/LAT (2 VIEW) PATIENT HISTORY: Chest pain. TECHNIQUE: Two views of the chest. COMPARISON: 07/12/2015. CT from 03/16/2017. FINDINGS: Lung volumes are mildly large. There is mild cardiomegaly with central vascular congestion. There is thickening of the right pleura, which appears stable. There is a questionable nodular density posteriorly, maybe in the left lower lobe. No pleural effusion or pneumothorax is seen. There are calcified lymph nodes present. IMPRESSION: 1. Mild central vascular congestion with mild cardiomegaly. 2. Nodular densities seen posteriorly, this could represent focal infiltrate. Please correlate with clinical findings, and if infection is suspected, consider followup radiographs following appropriate antibiotic therapy. Otherwise, consider CT of the chest for further evaluation. Dictated by: Dictated on workstation # [id number] Dict: 08/23/181835 Trans: 08/23/181844 Interpreted by: ЕЛЕНА CARLSON MD Electronically signed by: ЕЛЕНА CARLSON MD 08/23/181844 (KRISTINA RICHARDS) Departure Impression Primary Impression: COPD exacerbation Disposition: 01 HOME, SELF-CARE Condition: Improved Departure-Patient Inst. Decision time for Depature: 20:45 (KRISTINA RICHARDS) Referrals: [facility] [place] (PCP/Family) Primary Care Physician Patient Instructions: Exacerbation of COPD (DC) Add. Discharge Instructions: Take your medications as prescribed. Use your inhaler as prescribed. Follow-up with Dr. Stevenson if symptoms are not improving or worsen Get your prescriptions tomorrow. Return to emergency department for chest pain, difficulty breathing, fever greater than 101 not relieved by Tylenol or ibuprofen, or new concerns. Scripts Azithromycin (Azithromycin) 250 Mg Tablet 250 MG PO UD, #6 TAB TAKE 2 TABLETS ON DAY ONE THEN TAKE 1 TABLET DAILY FOR FOUR MORE DAYS Prov: KRISTINA RICHARDS 08/23/18 Albuterol Sulfate (VENTOLIN HFA) 1 Puff Puff 2 PUFF INH Q4H, #1 INHALER 3 Refills 1 PUFF = 90 MCG Prov: KRISTINA RICHARDS 08/23/18 Copy Copies To 1: CHRIS STEVENSON MD, TITUS J Aug 23, 2018 17:30 KRISTINA RICHARDS Aug 23, 2018 19:13
[2018-08-23 17:40] LABS: BILIRUBIN,URINE NEGATIVE (NEGATIVE); CLARITY,URINE SLIGHTLY CLOUDY; COLOR,URINE YELLOW; GLUCOSE, URINE (UA) NEGATIVE (NEGATIVE); KETONES,URINE NEGATIVE (NEGATIVE); LEUKOCYTE ESTERASE ,URINE NEGATIVE (NEGATIVE); NITRITE,URINE NEGATIVE (NEGATIVE); PH,URINE 6 (5-9); PROTEIN,URINE NEGATIVE (NEGATIVE); UROBILINOGEN,URINE NORMAL (NORMAL)
[2018-08-23] MEDS ORDERED: ARIP5TAB20 (17:42)
[2018-08-23 17:43] LABS: BASOPHILS % (AUTO) 1 % (0-10); EOSINOPHILS # (AUTO) 0.2 10^3/uL (0.0-0.3); EOSINOPHILS % (AUTO) 4 % (0-10); HEMATOCRIT 42 % (40-54); HEMOGLOBIN 14.2 G/DL (13.3-17.7); LYMPHOCYTES # (AUTO) 1.4 X 10^3 (1.0-4.0); LYMPHOCYTES % (AUTO) 22 % (12-44); MEAN CORPUSCULAR HEMOGLOBIN 33 PG (25-34); MEAN CORPUSCULAR HGB CONC 34 G/DL (32-36); MEAN CORPUSCULAR VOLUME 97 FL (80-99); MEAN PLATELET VOLUME 9.9 FL (7.4-10.4); MONOCYTES # (AUTO) 0.4 X 10^3 (0.0-1.0); MONOCYTES % (AUTO) 7 % (0-12); NEUTROPHILS # (AUTO) 4.3 X 10^3 (1.8-7.8); NEUTROPHILS % (AUTO) 68 % (42-75); PLATELET COUNT 202 10^3/uL (130-400); RED CELL DISTRIBUTION WIDTH 12.9 % (10.0-14.5); WHITE BLOOD COUNT 6.3 10^3/uL (4.3-11.0)
[2018-08-23 17:48] LABS: BACTERIA,URINE NEGATIVE /HPF; SQUAMOUS EPITHELIAL CELL,UR RARE /HPF
[2018-08-23 18:05] LABS: ALANINE AMINOTRANSFERASE 13 U/L (0-55); ALBUMIN 3.9 GM/DL (3.2-4.5); ALKALINE PHOSPHATASE 85 U/L (40-136); BILIRUBIN,TOTAL 0.5 MG/DL (0.1-1.0); BUN/CREATININE RATIO 13; CALCIUM 9.4 MG/DL (8.5-10.1); CARBON DIOXIDE 27 MMOL/L (21-32); CHLORIDE 106 MMOL/L (98-107); CREATININE SERUM 1.12 MG/DL (0.60-1.30); GFR ESTIMATED > 60; GLUCOSE 90 MG/DL (70-105); POTASSIUM 4.1 MMOL/L (3.6-5.0); SODIUM 142 MMOL/L (135-145); TOTAL PROTEIN 6.8 GM/DL (6.4-8.2)
[2018-08-23 18:07] LABS: ABG BASE EXCESS 2.2 MMOL/L (-2.5-2.5); ABG OXYGEN SATURATION 93 % (94-100); ABG PCO2 47 MMHG (35-45); ABG PH 7.37 (7.37-7.43); ABG PO2 65 MMHG (79-93); ABG TCO2 28.5 MMOL/L (21.0-31.0)
[2018-08-23 18:08] LABS: ALLENS TEST POSITIVE; INSPIRED O2 2 L; VENTILATOR NO
--- OUTSIDE RECORDS SUMMARY | 2018-08-23 18:33 | XMS REPORT | Continuity of Care Document ---
Author Organization Unknown Address Unknown Allergies Active Description Code Type Severity Reaction Onset Reported/Identified Relationship to Patient Clinical Status Yes ampicillin Drug Allergy 05/24/2008 Yes ampicillin Drug Allergy N/A N/A 05/24/2008 Yes ampicillin [id number] Drug Allergy Mild RASH 04/22/2009 Yes Penicillins [id number] Drug Allergy Mild N/A 07/04/2009 Yes benazepril 20 mg tablet Drug Allergy N/A N/A 09/01/2013 Yes EGGS EGGS Unknown N/A 12/23/2013 Yes sulfacetamide [id number] Drug Allergy Mild "MADE ME FEEL B 03/19/2015 Yes egg [id number] Drug Allergy Unknown N/A 07/19/2015 Medications There is no data. Problems Date Dx Coded Attending Type Code Diagnosis Diagnosed By 01/29/1531 RAYSHAWN JARAMILLO DO Ot M75.121 COMPLETE ROTATR-CUFF TEAR/RUPTR OF R RUI 01/29/1534 QUETA PITTMAN Ot M54.5 LOW BACK [...] OF MALIGNANT NEOPLASM OF OTHER 11/17/2007 BELTRAN DO JULIET K 465.9 UPPER RESPIRATORY INFECTION 11/17/2007 BELTRAN DO JULIET K V16.49 FAMILY HISTORY OF MALIGNANT NEOPLASM OF OTHER 11/17/2007 465.9 UPPER RESPIRATORY INFECTION 11/17/2007 V16.49 FAMILY HISTORY OF MALIGNANT NEOPLASM OF OTHER 11/17/2007 RAHUL ZHU APRN R 465.9 UPPER RESPIRATORY INFECTION 11/17/2007 RAHUL ZHU APRN R V16.49 FAMILY HISTORY OF MALIGNANT NEOPLASM OF OTHER 11/17/2007 BELTRAN DO JULIET K 465.9 UPPER RESPIRATORY INFECTION 11/17/2007 BELTRAN DO JULIET K V16.49 FAMILY HISTORY OF MALIGNANT NEOPLASM OF OTHER 11/17/2007 465.9 UPPER RESPIRATORY INFECTION 11/17/2007 V16.49 FAMILY HISTORY OF MALIGNANT NEOPLASM OF OTHER 11/17/2007 465.9 UPPER RESPIRATORY INFECTION 11/17/2007 V16.49 FAMILY HISTORY OF MALIGNANT NEOPLASM OF OTHER 11/17/2007 465.9 UPPER RESPIRATORY INFECTION 11/17/2007 V16.49 FAMILY HISTORY OF MALIGNANT NEOPLASM OF OTHER 11/17/2007 BELTRAN DO JULIET K 465.9 UPPER RESPIRATORY INFECTION 11/17/2007 BELTRAN DO JULIET K V16.49 FAMILY HISTORY OF MALIGNANT NEOPLASM OF OTHER 11/17/2007 RAHUL ZHU APRN R 465.9 UPPER RESPIRATORY INFECTION 11/17/2007 RAHUL ZHU APRN R V16.49 FAMILY HISTORY OF MALIGNANT NEOPLASM OF OTHER 11/17/2007 BELTRAN DO, JULIET K 465.9 UPPER RESPIRATORY INFECTION 11/17/2007 BELTRAN DO JULIET K V16.49 FAMILY HISTORY OF MALIGNANT NEOPLASM OF OTHER 11/17/2007 BELTRAN DO, JULIET K 465.9 UPPER RESPIRATORY INFECTION 11/17/2007 BELTRAN DO JULIET K V16.49 FAMILY HISTORY OF MALIGNANT NEOPLASM OF OTHER 11/17/2007 BELTRAN DO JULIET K 465.9 UPPER RESPIRATORY INFECTION 11/17/2007 [...] 465.9 UPPER RESPIRATORY INFECTION 11/17/2007 BELTRAN DO, JULITE K V16.49 FAMILY HISTORY OF MALIGNANT NEOPLASM [...] OF MALIGNANT NEOPLASM OF OTHER 11/17/2007 AUDRA FLATBED OWNER OPERATOR, RAHUL R 465.9 UPPER RESPIRATORY INFECTION 11/17/2007 AUDRA FLATBED OWNER OPERATOR, RAHUL R V16.49 FAMILY HISTORY OF MALIGNANT [...] HISTORY OF MALIGNANT NEOPLASM OF OTHER 11/17/2007 DEVIN WATTERS JULIET K 465.9 UPPER RESPIRATORY INFECTION 11/17/2007 MARIBEL BELTRAN DOA K V16.49 FAMILY HISTORY OF MALIGNANT NEOPLASM OF OTHER 11/17/2007 DEVIN WATTERS JULIET K 465.9 UPPER RESPIRATORY INFECTION 11/17/2007 MARIBEL [...] OF MALIGNANT NEOPLASM OF OTHER 11/17/2007 MARIBEL EBLTRAN DOA K 465.9 UPPER RESPIRATORY INFECTION 11/17/2007 JULIET BELTRAN DO K V16.49 FAMILY HISTORY OF MALIGNANT NEOPLASM OF OTHER 05/04/2008 JULIET BELTRAN DO K NODX NO DIAGNOSIS 05/04/2008 NODX NO DIAGNOSIS 05/04/2008 NODX NO DIAGNOSIS 05/04/2008 WILLY DIAZ, BRIDGETT S NODX NO DIAGNOSIS 05/04/2008 NODX NO DIAGNOSIS 05/04/2008 NODX NO DIAGNOSIS 05/04/2008 NODX NO DIAGNOSIS 05/04/2008 NODX NO DIAGNOSIS 05/04/2008 AUDRA ZAMORAN, RAHUL R NODX NO DIAGNOSIS 05/04/2008 BELTRAN DO, JULIET K NODX NO DIAGNOSIS 05/04/2008 NODX NO DIAGNOSIS 05/04/2008 AUDRA ZAMORAN, RAHUL R NODX NO DIAGNOSIS 05/04/2008 BELTRAN DO, JULIET K NODX NO DIAGNOSIS 05/04/2008 NODX NO DIAGNOSIS 05/04/2008 NODX NO DIAGNOSIS 05/04/2008 NODX NO DIAGNOSIS 05/04/2008 BELTRAN DO, JULIET K NODX NO DIAGNOSIS 05/04/2008 AUDRA DIAZ, RAHUL R NODX NO DIAGNOSIS 05/04/2008 BELTRAN [...] K NODX NO DIAGNOSIS 05/04/2008 BELTRAN DO, JLUIET K NODX NO DIAGNOSIS 05/04/2008 BELTRAN DO, JULIET K NODX NO DIAGNOSIS 05/04/2008 BELTRAN DO, JULIET K NODX NO DIAGNOSIS 05/04/2008 BELTRAN DO, JULIET K NODX NO DIAGNOSIS 05/04/2008 GRAHAM MD, CHRIS N NODX NO DIAGNOSIS 05/04/2008 BELTRAN DO, JULIET K NODX NO DIAGNOSIS 05/04/2008 BELTRAN DO, JULIET K NODX NO DIAGNOSIS 05/04/2008 BELTRAN DO, JULIET K NODX NO DIAGNOSIS 05/04/2008 BELTRAN DO, JULIET K NODX NO DIAGNOSIS 05/04/2008 BELTRAN DO, JULIET K NODX NO DIAGNOSIS 05/04/2008 BELTRAN DO, JULIET K NODX NO DIAGNOSIS 05/04/2008 GRAHAM ESTRELLA, CHRIS N NODX NO DIAGNOSIS 05/04/2008 GRAHAM ESTRELLA, CHRIS [...] DPM, KELLE NODX NO DIAGNOSIS 05/04/2008 AUDRA FLATBED OWNER OPERATOR, RAHUL R NODX NO DIAGNOSIS 05/04/2008 BELTRAN DO, JULIET K NODX NO DIAGNOSIS 05/04/2008 BELTRAN DO, JULIET K NODX NO DIAGNOSIS 05/04/2008 BELTRAN DO, JULIET K NODX NO DIAGNOSIS 05/04/2008 BELTRAN DO, JULIET K NODX NO DIAGNOSIS 05/04/2008 BELTRAN DO, JULIET K NODX NO DIAGNOSIS 05/04/2008 BELTRAN DO, JULIET K NODX NO DIAGNOSIS 05/04/2008 GRAHAM ESTRELLA, CHRIS N NODX NO DIAGNOSIS 05/04/2008 GRAHAM ESTRELLA, CHRIS Steiner NODX NO DIAGNOSIS 05/04/2008 BELTRAN DO, JULIET K NODX NO DIAGNOSIS 05/04/2008 BELTRAN DO, JULIET K NODX NO DIAGNOSIS 05/04/2008 GRAHAM ESTRELLA, CHRIS N NODX NO DIAGNOSIS 05/04/2008 GRAHAM ESTRELLA, CHRIS Steiner NODX NO DIAGNOSIS 05/04/2008 BELTRAN DO, JULIET K NODX NO DIAGNOSIS 05/04/2008 GRAHAM ESTRELLA, CHRIS N NODX NO DIAGNOSIS 05/04/2008 BELTRAN DO, JULIET K NODX NO DIAGNOSIS 05/24/2008 BELTRAN DO, JULIET K 388.7 OTALGIA 05/24/2008 BELTRAN DO, JULIET K 401.9 Combined Systolic And Diastolic Elevation 05/24/2008 388.7 OTALGIA 05/24/2008 401.9 Combined Systolic And Diastolic Elevation 05/24/2008 388.7 OTALGIA 05/24/2008 401.9 Combined Systolic And Diastolic Elevation 05/24/2008 WILLY FLATBED OWNER OPERATOR BRIDGETT S 388.7 OTALGIA 05/24/2008 SHERON AGUILERA APRNNDA S 401.9 Combined Systolic And Diastolic Elevation [...] 401.9 Combined Systolic And Diastolic Elevation 05/24/2008 ZHU FLATBED OWNER OPERATOR, RAHUL R 388.7 OTALGIA 05/24/2008 ZHU FLATBED OWNER OPERATOR, RAHUL R 401.9 Combined Systolic And Diastolic [...] 401.9 Combined Systolic And Diastolic Elevation 05/24/2008 GARHAM ESTRELLA, CHRIS N 388.7 OTALGIA 05/24/2008 GRAHAM [...] Systolic And Diastolic Elevation 05/24/2008 BELTRAN DO, JULEIT K 388.7 OTALGIA 05/24/2008 BELTRAN DO, JULIET [...] COMBINED SYSTOLIC AND DIASTOLIC ELEVATION 05/24/2008 ZHU FLATBED OWNER OPERATOR, RAHUL R 388.7 OTALGIA 05/24/2008 ZHU FLATBED OWNER OPERATOR, RAHUL R 401.9 COMBINED SYSTOLIC AND DIASTOLIC [...] 401.9 COMBINED SYSTOLIC AND DIASTOLIC ELEVATION 05/24/2008 BETLRAN DO, JULIET K 388.7 OTALGIA [...] BENIGN 05/25/2008 401.1 ESSENTIAL HYPERTENSION BENIGN 05/25/2008 WILLY FLATBED OWNER OPERATOR, BRIDGETT S 401.1 ESSENTIAL HYPERTENSION BENIGN 05/25/2008 401.1 ESSENTIAL [...] OBESITY MORBID 06/26/2008 278.01 OBESITY MORBID 06/26/2008 SHANNON ZHU APRNIA R 278.01 OBESITY MORBID 06/26/2008 BELTRAN DO, JULIET K 278.01 OBESITY MORBID 06/26/2008 278.01 OBESITY MORBID 06/26/2008 278.01 OBESITY MORBID 06/26/2008 278.01 OBESITY MORBID 06/26/2008 BELTRAN DO, JULIET K 278.01 OBESITY MORBID 06/26/2008 RAHUL ZHU APRN [...] DO, JULIET K 716.90 ARTHROPATHY 07/11/2008 LUCA DPKELLE Garsia 716.90 ARTHROPATHY 07/11/2008 RAHUL ZHU APRN 716.90 [...] 08/11/2008 789.00 ABDOMINAL PAIN UNSPECIFIED SITE 08/11/2008 ZHU FLATBED OWNER OPERATOR, RAHUL R 789.00 ABDOMINAL PAIN UNSPECIFIED SITE 08/11/2008 BELTRAN DO, JULIET K 789.00 ABDOMINAL PAIN UNSPECIFIED SITE 08/11/2008 789.00 ABDOMINAL PAIN UNSPECIFIED SITE 08/11/2008 SHANNON ZHU APRNIA R 789.00 ABDOMINAL PAIN UNSPECIFIED SITE 08/11/2008 BELTRAN DO, JULIET K 789.00 ABDOMINAL PAIN UNSPECIFIED SITE 08/11/2008 789.00 ABDOMINAL PAIN UNSPECIFIED SITE 08/11/2008 789.00 ABDOMINAL PAIN UNSPECIFIED SITE 08/11/2008 789.00 ABDOMINAL PAIN UNSPECIFIED SITE 08/11/2008 BELTRAN DO, JULIET K 789.00 ABDOMINAL PAIN UNSPECIFIED SITE 08/11/2008 SHANNON ZHU APRNIA R 789.00 ABDOMINAL PAIN UNSPECIFIED SITE 08/11/2008 [...] K 789.00 ABDOMINAL PAIN UNSPECIFIED SITE 08/11/2008 BLETRAN DO, JULIET K 789.00 ABDOMINAL PAIN UNSPECIFIED [...] KELLE 789.00 ABDOMINAL PAIN UNSPECIFIED SITE 08/11/2008 RAHUL [...] BELTRAN MARIBEL WATTERSA K 729.2 RADICULOPATHY 04/18/2009 724.2 lower back pain 04/18/2009 729.2 RADICULOPATHY 04/18/2009 724.2 lower back pain 04/18/2009 729.2 RADICULOPATHY 04/18/2009 BRIDGETT AGUILERA APRN 724.2 lower back pain 04/18/2009 BRIDGETT AGUILERA APRN 729.2 RADICULOPATHY 04/18/2009 724.2 lower back pain 04/18/2009 729.2 RADICULOPATHY 04/18/2009 724.2 lower back pain 04/18/2009 729.2 RADICULOPATHY 04/18/2009 724.2 lower back pain 04/18/2009 729.2 RADICULOPATHY 04/18/2009 724.2 lower back pain 04/18/2009 729.2 RADICULOPATHY 04/18/2009 RAHUL ZHU APRN 724.2 lower back pain 04/18/2009 RAHUL ZHU APRN 729.2 RADICULOPATHY 04/18/2009 BELTRAN DO, JULIET K 724.2 lower back pain 04/18/2009 BELTRAN DO, JULIET K 729.2 RADICULOPATHY 04/18/2009 724.2 lower back pain 04/18/2009 729.2 RADICULOPATHY 04/18/2009 SHANNON ZHU APRNIA R [...] LUCA DPM, KELLE 729.2 RADICULOPATHY 04/18/2009 ZHU FLATBED OWNER OPERATOR, RAHUL R 724.2 lower back pain 04/18/2009 ZHU FLATBED OWNER OPERATOR, RAHUL R 729.2 RADICULOPATHY 04/18/2009 BELTRAN DO, [...] Steiner 724.2 lower back pain 04/18/2009 GRAHAM MD, CHRIS N 729.2 RADICULOPATHY 04/18/2009 CHRIS STEVENSON MD N 724.2 lower back pain 04/18/2009 CHRIS STEVENSON MD N 729.2 RADICULOPATHY 04/18/2009 MARIBEL BELTRAN DOA K 724.2 lower back pain 04/18/2009 BELTRAN DO JULIET K 729.2 RADICULOPATHY 04/18/2009 MARIBEL BELTRAN DOA K [...] MARIBEL BELTRAN DOA K 729.2 RADICULOPATHY 05/01/2009 MARIBEL BELTRAN DOA K 836.0 Acute Meniscal Tear Medial 05/01/2009 836.0 Acute Meniscal Tear Medial 05/01/2009 836.0 Acute Meniscal Tear Medial 05/01/2009 BRIDGETT AGUILERA APRN 836.0 Acute Meniscal Tear Medial 05/01/2009 836.0 Acute Meniscal Tear Medial 05/01/2009 836.0 Acute Meniscal Tear Medial 05/01/2009 836.0 Acute Meniscal Tear Medial 05/01/2009 836.0 Acute Meniscal Tear Medial 05/01/2009 RAHUL ZHU APRN 836.0 Acute Meniscal Tear Medial 05/01/2009 MARIBEL BELTRAN DOA K 836.0 Acute Meniscal Tear Medial 05/01/2009 836.0 Acute Meniscal Tear Medial 05/01/2009 ZHU FLATBED OWNER OPERATOR, RAHUL R 836.0 Acute Meniscal Tear Medial 05/01/2009 BELTRAN DO, JULIET K 836.0 Acute Meniscal Tear Medial 05/01/2009 836.0 Acute Meniscal Tear Medial 05/01/2009 836.0 Acute Meniscal Tear Medial 05/01/2009 836.0 Acute Meniscal Tear Medial 05/01/2009 BELTRAN DO, JULIET K 836.0 Acute Meniscal Tear Medial 05/01/2009 ZHU FLATBED OWNER OPERATOR, RAHUL R 836.0 Acute Meniscal Tear Medial [...] Meniscal Tear Medial 05/01/2009 GRAHAM ESTRELLA, CHRIS Steiner 836.0 Acute Meniscal Tear Medial 05/01/2009 BELTRAN [...] KELLE 836.0 Acute Meniscal Tear Medial 05/01/2009 ZHU FLATBED OWNER OPERATOR, RAHUL R 836.0 Acute Meniscal Tear Medial [...] Meniscal Tear Medial 05/01/2009 CHRIS STEVENSON MD 836.0 Acute Meniscal Tear Medial 05/01/2009 BELTRAN [...] 789.00 Abdominal Pain Unspecified Site 07/16/2009 BELTRAN DO JULIET K 789.00 Abdominal Pain Unspecified Site [...] Abdominal Pain Unspecified Site 07/16/2009 BELTRAN DO, JULITE K 789.00 Abdominal Pain Unspecified Site 07/16/2009 [...] K 789.00 Abdominal Pain Unspecified Site 07/16/2009 KELLE DIAZ DPM 789.00 Abdominal Pain Unspecified Site 07/16/2009 RAHUL [...] Orthostatic Hypotension 08/21/2009 458.0 Orthostatic Hypotension 08/21/2009 SHANNON ZHU APRNIA R 458.0 Orthostatic Hypotension 08/21/2009 BELTRAN DO, JULIET K 458.0 Orthostatic Hypotension 08/21/2009 458.0 Orthostatic Hypotension 08/21/2009 SHANNON ZHU APRNIA R 458.0 Orthostatic Hypotension 08/21/2009 BELTRAN DO, JULIET K 458.0 Orthostatic Hypotension 08/21/2009 458.0 Orthostatic Hypotension 08/21/2009 458.0 Orthostatic Hypotension 08/21/2009 458.0 Orthostatic Hypotension 08/21/2009 BELTRAN DO, JULIET K 458.0 Orthostatic Hypotension 08/21/2009 SHANNON ZHU APRNIA R 458.0 Orthostatic Hypotension 08/21/2009 BELTRAN DO, JULIET K 458.0 Orthostatic Hypotension 08/21/2009 BELTRAN DO, JULIET K 458.0 Orthostatic Hypotension 08/21/2009 BELTRAN DO, JULIET K 458.0 Orthostatic Hypotension 08/21/2009 BELRTAN DO, JULIET K 458.0 Orthostatic Hypotension 08/21/2009 [...] LUCA DPM, KELLE 458.0 Orthostatic Hypotension 08/21/2009 ZHU FLATBED OWNER OPERATOR, RAHUL R 458.0 Orthostatic Hypotension 08/21/2009 BELTRAN DO, JULIET K 458.0 Orthostatic Hypotension 08/21/2009 BELTRAN DO, JULIET K 458.0 Orthostatic Hypotension 08/21/2009 BELTRAN DO, JULIET K 458.0 Orthostatic Hypotension 08/21/2009 BELTRAN DO, JULIET K 458.0 Orthostatic Hypotension 08/21/2009 BELTRAN DO, JULIET K 458.0 Orthostatic Hypotension 08/21/2009 BELTRAN DO, JULIET K 458.0 Orthostatic Hypotension 08/21/2009 GRAHAM ESTRELLA, CHRIS N 458.0 Orthostatic Hypotension 08/21/2009 CHRIS STEVENSON MD 458.0 Orthostatic Hypotension 08/21/2009 BELTRAN DO JULIET K 458.0 Orthostatic Hypotension 08/21/2009 BELTRAN DO, JULIET K 458.0 Orthostatic Hypotension 08/21/2009 CHRIS STEVENSON MD N 458.0 Orthostatic Hypotension 08/21/2009 CHRIS STEVENSON MD N 458.0 Orthostatic Hypotension 08/21/2009 BELTRAN DO, JULIET K 458.0 Orthostatic Hypotension 08/21/2009 CHRIS STEVENSON MD N 458.0 Orthostatic Hypotension 08/21/2009 BELTRAN DO JULIET K 458.0 Orthostatic Hypotension 08/28/2009 DEVIN WATTERS JULIET K 728.87 muscle weakness 08/28/2009 DEVIN WATTERS, JULIET K 781.0 Tremor 08/28/2009 728.87 muscle weakness 08/28/2009 781.0 Tremor 08/28/2009 728.87 muscle weakness 08/28/2009 781.0 Tremor 08/28/2009 WETSON AGUILERA APRNA S 728.87 muscle weakness 08/28/2009 BRIDGETT AGUILERA APRN S 781.0 Tremor 08/28/2009 728.87 Muscle Weakness 08/28/2009 781.0 Tremor 08/28/2009 728.87 Muscle Weakness 08/28/2009 781.0 Tremor 08/28/2009 728.87 Muscle Weakness 08/28/2009 781.0 Tremor 08/28/2009 728.87 Muscle Weakness 08/28/2009 781.0 Tremor 08/28/2009 AUDRA FLATBED OWNER OPERATOR, RAHUL R 728.87 Muscle Weakness 08/28/2009 AUDRA FLATBED OWNER OPERATOR, RAHUL R 781.0 Tremor 08/28/2009 BELTRAN DO JULIET K 728.87 Muscle Weakness 08/28/2009 BELTRAN DO JULIET K 781.0 Tremor 08/28/2009 728.87 Muscle Weakness 08/28/2009 781.0 Tremor 08/28/2009 AUDRA FLATBED OWNER OPERATOR, RAHUL R 728.87 Muscle Weakness 08/28/2009 AUDRA DIAZ, RAHUL R 781.0 Tremor 08/28/2009 BELTRAN DO, JULIET K 728.87 Muscle Weakness 08/28/2009 BELTRAN DO, JULIET K 781.0 Tremor 08/28/2009 728.87 Muscle Weakness 08/28/2009 781.0 Tremor 08/28/2009 728.87 Muscle Weakness 08/28/2009 781.0 Tremor 08/28/2009 728.87 Muscle Weakness 08/28/2009 781.0 Tremor 08/28/2009 BELTRAN DO, JULIET K 728.87 Muscle Weakness 08/28/2009 BELTRAN DO, JULIET K 781.0 Tremor 08/28/2009 ZHU FLATBED OWNER OPERATOR, RAHUL R 728.87 Muscle Weakness 08/28/2009 ZHU FLATBED OWNER OPERATOR, RAHUL R 781.0 Tremor 08/28/2009 BELTRAN DO, [...] MD N 728.87 Muscle Weakness 08/28/2009 GRAHAM ESTRELLA, [...] LUCA DPM, KELLE 781.0 Tremor 08/28/2009 ZHU FLATBED OWNER OPERATOR, RAHUL R 728.87 Muscle Weakness 08/28/2009 ZHU FLATBED OWNER OPERATOR, RAHUL R 781.0 Tremor 08/28/2009 BELTRAN DO, [...] DEGENERATION OF CERVICAL INTERVERTEBRAL DISC 10/03/2009 BELTRAN MARIBEL WATTERSA K 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 [...] In The Stool Color 10/22/2009 BELTRAN DO, JLUIET K 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 10/22/2009 BELTRAN DO, JULIET [...] Change In The Stool Color 10/22/2009 BELTRAN DOMARIBELA K 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 10/22/2009 BELTRAN DO, JULIET K 792.1 Change In The Stool Color 10/22/2009 CHRIS STEVENSON MD N 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 10/22/2009 CHRIS STEVENSON MD N 792.1 Change In The Stool Color 10/22/2009 BELTRAN DO JULIET K 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 10/22/2009 BELTRAN DO, JULIET K 792.1 Change In The Stool Color 11/02/2009 BELTRAN DO, JULIET K 783.21 recent weight loss (___ [...] Unspecified 11/12/2009 724.5 Backache Unspecified 11/12/2009 AUDRA FLATBED OWNER OPERATORSHANNON SteinerIA R 724.5 Backache Unspecified 11/12/2009 BELTRAN DO, JULIET K 724.5 Backache Unspecified 11/12/2009 724.5 Backache Unspecified 11/12/2009 AUDRA FLATBED OWNER OPERATORSHANNON SteinerIA R 724.5 Backache Unspecified 11/12/2009 BELTRAN DO, JULIET K 724.5 Backache Unspecified 11/12/2009 724.5 Backache Unspecified 11/12/2009 724.5 Backache Unspecified 11/12/2009 724.5 Backache Unspecified 11/12/2009 BELTRAN DO, JULIET K 724.5 Backache Unspecified 11/12/2009 SHANNON ZHU APRNIA R 724.5 Backache Unspecified 11/12/2009 BELTRAN DO, JULIET K 724.5 Backache Unspecified 11/12/2009 BELTARN DO, JULIET K 724.5 Backache Unspecified 11/12/2009 [...] STEVENSON MD N 724.5 Backache Unspecified 11/12/2009 GRAHAM ESTRELLA, CHRIS N 724.5 Backache Unspecified 11/12/2009 BELTRAN DO, JULIET K 724.5 Backache Unspecified 11/12/2009 BELTRAN DO, JULIET K 724.5 Backache Unspecified 11/12/2009 BELTRAN DO, JULIET K 724.5 Backache Unspecified 11/12/2009 BELTRAN DO, JULIET K 724.5 Backache Unspecified 11/12/2009 BELTRAN DO, JULIET K 724.5 Backache Unspecified 11/12/2009 BELTRAN DO, JULIET K 724.5 Backache Unspecified 11/12/2009 LUCA DPM, KELLE 724.5 Backache Unspecified 11/12/2009 AUDRA FLATBED OWNER OPERATORRAHUL Steiner R 724.5 Backache Unspecified 11/12/2009 BELTRAN DO, [...] JULIET BELTRAN DO K 724.5 Backache Unspecified 11/12/2009 JULIET BELTRAN DO K 724.5 Backache Unspecified 11/12/2009 CHRIS STEVENSON MD N 724.5 Backache Unspecified 11/12/2009 CHRIS STEVENSON MD N 724.5 Backache Unspecified 11/12/2009 JULIET BELTRAN DO K 724.5 Backache Unspecified 11/12/2009 CHRIS STEVENSON [...] 03/11/2010 RAHUL ZHU APRN 780.79 FATIGUE 03/11/2010 JULIET BELTRAN DO K 780.79 FATIGUE 03/11/2010 780.79 FATIGUE 03/11/2010 RAHUL ZHU APRN 780.79 FATIGUE 03/11/2010 BELTRAN MARIBEL WATTERSA K 780.79 FATIGUE 03/11/2010 780.79 FATIGUE 03/11/2010 780.79 FATIGUE 03/11/2010 780.79 FATIGUE 03/11/2010 BELTRAN DO JULIET K 780.79 FATIGUE 03/11/2010 RAHUL ZHU APRN 780.79 FATIGUE 03/11/2010 MARIBEL BELTRAN DOA K 780.79 FATIGUE 03/11/2010 BELTRAN MARIBEL WATTERSA K 780.79 FATIGUE 03/11/2010 BELTRAN DO, JULIET [...] BELTRAN DO, JULIET K 780.79 FATIGUE 06/07/2010 DEVIN DOJULIET K 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's Disease 06/07/2010 733.6 [...] DO, JULIET K 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's Disease 06/07/2010 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's [...] ESTRELLA, CHRIS N 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's Disease 06/07/2010 GRAHAM ESTRELLA, CHRIS Steiner 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's Disease 06/07/2010 BELTRAN DO, JULIET K 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's Disease 06/07/2010 BELTRAN DO, JULIET K 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's Disease 06/07/2010 BELTRAN DO, JULIET K 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's Disease 06/07/2010 BELTRAN DO, JULIET K 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's Disease 06/07/2010 BELTRAN DO, JULIET K 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's Disease 06/07/2010 BELTRAN DO, JULIET K 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's Disease 06/07/2010 KELLE DIAZ DPM 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's Disease 06/07/2010 RAHUL ZHU APRN [...] ESTRELLA, CHRIS N 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's Disease 06/07/2010 GRAHAM ESTRELLA, CHRIS N 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's Disease 06/07/2010 JULIET BELTRAN DO 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's Disease 06/07/2010 JULIET BELTRAN DO K 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's Disease 06/07/2010 CHRIS STEVENSON MD N 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's Disease 06/07/2010 CHRIS STEVENSON MD N 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's Disease 06/07/2010 BELTRAN JULIET WATTERS 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's Disease 06/07/2010 GRAHAM ESTRELLA, CHRIS N 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's Disease 06/07/2010 JULIET BELTRAN DO K 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's Disease 10/16/2010 JULIET BELTRAN DO K 272.1 HYPERTRIGLYCERIDEMIA 10/16/2010 JULIET BELTRAN DO K 274.9 GOUT 10/16/2010 272.1 HYPERTRIGLYCERIDEMIA 10/16/2010 274.9 GOUT 10/16/2010 272.1 HYPERTRIGLYCERIDEMIA 10/16/2010 274.9 GOUT 10/16/2010 BRIDGETT AGUILERA APRN S 272.1 HYPERTRIGLYCERIDEMIA 10/16/2010 BRIDGETT AGUILERA APRN S 274.9 GOUT 10/16/2010 272.1 HYPERTRIGLYCERIDEMIA 10/16/2010 274.9 GOUT 10/16/2010 272.1 HYPERTRIGLYCERIDEMIA 10/16/2010 274.9 GOUT 10/16/2010 272.1 HYPERTRIGLYCERIDEMIA 10/16/2010 274.9 GOUT 10/16/2010 272.1 HYPERTRIGLYCERIDEMIA 10/16/2010 274.9 GOUT 10/16/2010 RAHUL ZHU APRN R 272.1 HYPERTRIGLYCERIDEMIA 10/16/2010 RAHUL ZHU APRN R 274.9 GOUT 10/16/2010 JULIET BELTRAN DO K 272.1 HYPERTRIGLYCERIDEMIA 10/16/2010 MARIBEL BELTRAN DOA K 274.9 GOUT 10/16/2010 272.1 HYPERTRIGLYCERIDEMIA 10/16/2010 274.9 GOUT 10/16/2010 RAHUL ZHU APRN R 272.1 HYPERTRIGLYCERIDEMIA 10/16/2010 ZHU FLATBED OWNER OPERATOR, RAHUL R 274.9 GOUT 10/16/2010 BELTRAN DO, JULIET K 272.1 HYPERTRIGLYCERIDEMIA 10/16/2010 BELTRAN DO, JULIET K 274.9 GOUT 10/16/2010 272.1 HYPERTRIGLYCERIDEMIA 10/16/2010 274.9 GOUT 10/16/2010 272.1 HYPERTRIGLYCERIDEMIA 10/16/2010 274.9 GOUT 10/16/2010 272.1 HYPERTRIGLYCERIDEMIA 10/16/2010 274.9 GOUT 10/16/2010 BELTRAN DO, JULIET K 272.1 HYPERTRIGLYCERIDEMIA 10/16/2010 BELTRAN DO, JULIET K 274.9 GOUT 10/16/2010 ZHU FLATBED OWNER OPERATOR, RAHUL R 272.1 HYPERTRIGLYCERIDEMIA 10/16/2010 ZHU FLATBED OWNER OPERATOR, RAHUL R 274.9 GOUT 10/16/2010 BELTRAN DO, [...] GRAHAM ESTRELLA, CHRIS N 272.1 HYPERTRIGLYCERIDEMIA 10/16/2010 GRAHAMCYNDI ESTRELLA, CHRIS N 274.9 GOUT 10/16/2010 BELTRAN [...] LUCA DPM, KELLE 274.9 GOUT 10/16/2010 ZHU FLATBED OWNER OPERATOR, RAHUL R 272.1 HYPERTRIGLYCERIDEMIA 10/16/2010 ZHU FLATBED OWNER OPERATOR, RAHUL R 274.9 GOUT 10/16/2010 BELTRAN DO, [...] ESTRELLA, CHRIS N 272.1 HYPERTRIGLYCERIDEMIA 10/16/2010 GRAHAM ESTRELLA CHRIS [...] pain in the left knee 12/11/2010 AUDRA FLATBED OWNER OPERATOR, RAHUL R 719.46 joint pain in the left knee 12/11/2010 BELTRAN DO, JULIET K 719.46 joint pain in the left knee 12/11/2010 719.46 joint pain in the left knee 12/11/2010 719.46 joint pain in the left knee 12/11/2010 719.46 joint pain in the left knee 12/11/2010 BELTRAN DO, JULIET K 719.46 joint pain in the left knee 12/11/2010 AUDRA ZAMORANSHANNONIA R 719.46 joint pain in the left [...] R 733.92 CHONDROMALACIA 01/02/2011 JULIET BELTRAN DO 733.92 CHONDROMALACIA 01/02/2011 733.92 CHONDROMALACIA 01/02/2011 RAHUL ZHU APRN R 733.92 CHONDROMALACIA 01/02/2011 JULIET BELTRAN DO K 733.92 CHONDROMALACIA 01/02/2011 733.92 CHONDROMALACIA 01/02/2011 733.92 CHONDROMALACIA 01/02/2011 733.92 CHONDROMALACIA 01/02/2011 BELTRAN DO, JULIET K 733.92 CHONDROMALACIA 01/02/2011 RAHUL ZHU APRN 733.92 [...] JULIET K 733.92 CHONDROMALACIA 01/02/2011 CHRIS STEVENSON MD3.92 CHONDROMALACIA 01/02/2011 BELTRAN DO, JULIET K 733.92 [...] DIAZ, BRIDGETT S 788.43 NOCTURIA 02/10/2011 WILLY DIAZ BRIDGETT S 799.81 DECREASED LIBIDO 02/10/2011 788.41 [...] ALFRED ZHU APRNRICIA R 788.43 NOCTURIA 02/10/2011 AUDRA FLATBED OWNER OPERATOR, RAHUL R 799.81 DECREASED LIBIDO 02/10/2011 BELTRAN [...] JULIET K 799.81 DECREASED LIBIDO 02/10/2011 ZHU FLATBED OWNER OPERATOR, RAHUL R 788.41 URINARY FREQUENCY 02/10/2011 ZHU FLATBED OWNER OPERATOR, RAHUL R 788.43 NOCTURIA 02/10/2011 ZHU FLATBED OWNER OPERATOR, RAHUL R 799.81 DECREASED LIBIDO 02/10/2011 BELTRAN [...] N 788.41 URINARY FREQUENCY 02/10/2011 GRAHAM ESTRELLA, HCRIS N 788.43 NOCTURIA 02/10/2011 GRAHAM ESTRELLA, CHRIS N 799.81 DECREASED LIBIDO 02/10/2011 BELTRAN DO, JULIET K 788.41 URINARY FREQUENCY 02/10/2011 BELTRAN DO, JULIET K 788.43 NOCTURIA 02/10/2011 BELTRAN DO, JULIET K 799.81 DECREASED LIBIDO 02/10/2011 BELTRAN DO, JULIET K 788.41 URINARY FREQUENCY 02/10/2011 BELTRAN DO, JULIET K 788.43 NOCTURIA 02/10/2011 BLETRAN DO, JULIET K 799.81 DECREASED LIBIDO 02/10/2011 [...] DPM, KELLE 799.81 DECREASED LIBIDO 02/10/2011 ZHU FLATBED OWNER OPERATOR, RAHUL R 788.41 URINARY FREQUENCY 02/10/2011 ZHU FLATBED OWNER OPERATOR, RAHUL R 788.43 NOCTURIA 02/10/2011 ZHU FLATBED OWNER OPERATOR, RAHUL R 799.81 DECREASED LIBIDO 02/10/2011 BELTRAN DO, JULIET K 788.41 URINARY FREQUENCY 02/10/2011 BELTRAN DO, JULIET K 788.43 NOCTURIA 02/10/2011 BELTRAN DO, JULIET K 799.81 DECREASED LIBIDO 02/10/2011 BELTRAN DO, JULEIT K 788.41 URINARY FREQUENCY 02/10/2011 BELTRAN DO, [...] 799.81 DECREASED LIBIDO 02/15/2011 Ot 716.90 ARTHROPATHY NOS- UNSPEC 02/15/2011 Ot 729.81 SWELLING OF LIMB 02/28/2011 BELTRAN DO, JULIET K 790.29 HYPERGLYCEMIA 02/28/2011 790.29 HYPERGLYCEMIA 02/28/2011 790.29 HYPERGLYCEMIA 02/28/2011 BRIDGETT AGUILERA APRN 790.29 HYPERGLYCEMIA 02/28/2011 790.29 HYPERGLYCEMIA 02/28/2011 790.29 HYPERGLYCEMIA 02/28/2011 790.29 HYPERGLYCEMIA 02/28/2011 790.29 HYPERGLYCEMIA 02/28/2011 RAHUL ZHU APRN R 790.29 HYPERGLYCEMIA 02/28/2011 BELTRAN DO, JULIET K 790.29 HYPERGLYCEMIA 02/28/2011 790.29 HYPERGLYCEMIA 02/28/2011 RAHUL [...] 02/28/2011 LUCA DPM, KELLE 790.29 HYPERGLYCEMIA 02/28/2011 RAHUL ZHU APRN R 790.29 HYPERGLYCEMIA 02/28/2011 BELTRAN DO, JULIET K 790.29 HYPERGLYCEMIA 02/28/2011 BELTRAN DO, JULIET K 790.29 HYPERGLYCEMIA 02/28/2011 BELTRAN DO, JULIET K 790.29 HYPERGLYCEMIA 02/28/2011 BELTRAN DO, JULIET K 790.29 HYPERGLYCEMIA 02/28/2011 BELTRAN DO, JULIET K 790.29 HYPERGLYCEMIA 02/28/2011 BELTRAN DO JULIET K [...] STEVENSON MD N 790.29 HYPERGLYCEMIA 02/28/2011 BELTRAN MARIBEL WATTERSA K 790.29 HYPERGLYCEMIA 03/05/2011 JULIET BELTRAN DO K V76.44 Prostate Screening 03/05/2011 V76.44 Prostate Screening 03/05/2011 V76.44 Prostate Screening 03/05/2011 BRIDGETT AGUILERA APRN V76.44 Prostate Screening 03/05/2011 V76.44 Prostate Screening 03/05/2011 V76.44 Prostate Screening 03/05/2011 V76.44 Prostate Screening 03/05/2011 V76.44 Prostate Screening 03/05/2011 RAHUL ZHU APRN V76.44 Prostate Screening 03/05/2011 BELTRAN JULIET WATTERS K V76.44 Prostate Screening 03/05/2011 V76.44 Prostate Screening 03/05/2011 RAHUL ZHU APRN V76.44 Prostate Screening 03/05/2011 BELTRAN JULIET WATTERS K V76.44 Prostate Screening 03/05/2011 V76.44 Prostate Screening 03/05/2011 V76.44 Prostate Screening 03/05/2011 V76.44 Prostate Screening 03/05/2011 BELTRAN MARIBEL WATTERSA K V76.44 Prostate Screening 03/05/2011 RAHUL ZHU APRN V76.44 Prostate Screening 03/05/2011 BELTRAN MARIBEL WATTERSA K V76.44 Prostate Screening 03/05/2011 BELTRAN MARIBEL WATTERSA K V76.44 Prostate Screening 03/05/2011 BELTRAN MARIBEL WATTERSA K V76.44 Prostate Screening 03/05/2011 BELTRAN DO [...] K V76.44 Prostate Screening 03/05/2011 BELTRAN DO, JULEIT K V76.44 Prostate Screening 03/05/2011 BELTRAN DO, [...] DO, JULIET K V76.44 Prostate Screening 03/05/2011 GRAHAM ESTRELLA, CHRIS Steiner V76.44 Prostate Screening 03/05/2011 GRAHAM ESTRELLA, CHRIS Steiner V76.44 Prostate Screening 03/05/2011 BELTRAN DO, JULIET K V76.44 Prostate Screening 03/05/2011 BELTRAN DO, JULIET K V76.44 Prostate Screening 03/05/2011 CHRIS STEVENSON MD V76.44 Prostate Screening 03/05/2011 GRAHAM ESTRELLA, CHRIS Steiner V76.44 Prostate Screening 03/05/2011 BELTRAN DO, JULIET [...] V77.1 DIABETES SCREENING 07/01/2011 BRIDGETT AGUILERA APRN S 477.0 ALLERGIC RHINITIS DUE TO POLLEN 07/01/2011 BRIDGETT AGUILERA APRN S 564.1 IRRITABLE BOWEL SYNDROME 07/01/2011 BRIDGETT [...] 695.3 ROSACEA 07/01/2011 V77.1 DIABETES SCREENING 07/01/2011 SHANNON ZHU APRNIA R 477.0 ALLERGIC RHINITIS DUE TO POLLEN 07/01/2011 AUDRA DIAZ RAHUL R 564.1 IRRITABLE BOWEL SYNDROME 07/01/2011 AUDRA DIAZ RAHUL R 695.3 ROSACEA 07/01/2011 ALFRED ZHU APRNRICIA [...] 695.3 ROSACEA 07/01/2011 V77.1 DIABETES SCREENING 07/01/2011 AUDRA FLATBED OWNER OPERATOR, RAHUL R 477.0 ALLERGIC RHINITIS DUE TO POLLEN 07/01/2011 AUDRA FLATBED OWNER OPERATOR RAHUL R 564.1 IRRITABLE BOWEL SYNDROME 07/01/2011 ZHU FLATBED OWNER OPERATOR, RAHUL R 695.3 ROSACEA 07/01/2011 ZHU FLATBED OWNER OPERATOR RAHUL R V77.1 DIABETES SCREENING 07/01/2011 BELTRAN [...] DO, JULIET K V77.1 DIABETES SCREENING 07/01/2011 AUDRA ZAMORAN RAHUL R 477.0 ALLERGIC RHINITIS DUE TO POLLEN 07/01/2011 AUDRA DIAZ RAHUL R 564.1 IRRITABLE BOWEL SYNDROME 07/01/2011 AUDRA ZAMORAN RAHUL R 695.3 ROSACEA 07/01/2011 AUDRA FLATBED OWNER OPERATOR RAHUL R V77.1 DIABETES SCREENING 07/01/2011 BELTRAN [...] BELTRAN DO, JULIET K 695.3 ROSACEA 07/01/2011 BLETRAN DO, JULIET K V77.1 DIABETES SCREENING 07/01/2011 [...] LUCA DPM, KELLE V77.1 DIABETES SCREENING 07/01/2011 AUDRA FLATBED OWNER OPERATORALFREDRAHUL R 477.0 ALLERGIC RHINITIS DUE TO POLLEN 07/01/2011 AUDRA FLATBED OWNER OPERATOR, RAHUL R 564.1 IRRITABLE BOWEL SYNDROME 07/01/2011 AUDRA FLATBED OWNER OPERATOR, RAHUL R 695.3 ROSACEA 07/01/2011 AUDRA FLATBED OWNER OPERATOR RAHUL R V77.1 DIABETES SCREENING 07/01/2011 BELTRAN [...] DO, JULIET K 695.3 ROSACEA 07/01/2011 BELTRAN DO JULIET K V77.1 DIABETES SCREENING 07/01/2011 CHRIS STEVENSON MD N 477.0 ALLERGIC RHINITIS DUE TO POLLEN 07/01/2011 CHIRS STEVENSON MD N 564.1 IRRITABLE BOWEL SYNDROME [...] JULIET K V65.3 COUNSELING- OBESITY (DIET) 09/22/2011 BETLRAN DO, JULIET K V65.3 COUNSELING- OBESITY (DIET) 09/22/2011 BELTARN DO, JULIET K V65.3 COUNSELING- OBESITY (DIET) [...] DIAZ DPM V65.3 COUNSELING- OBESITY (DIET) 09/22/2011 ZHU FLATBED OWNER OPERATOR, RAHUL R V65.3 COUNSELING- OBESITY (DIET) 09/22/2011 [...] MD V65.3 COUNSELING- OBESITY (DIET) 09/22/2011 BELTRAN DO JULIET K V65.3 COUNSELING- OBESITY (DIET) 09/22/2011 CHRIS STEVENSON MD V65.3 COUNSELING- OBESITY (DIET) 09/22/2011 BELTRAN , JULIET K V65.3 COUNSELING- OBESITY (DIET) 11/13/2011 MARIBEL BELTRAN DOA K 786.09 RESPIRATORY ABNORMALITY OTHER 11/13/2011 786.09 RESPIRATORY ABNORMALITY OTHER 11/13/2011 786.09 RESPIRATORY ABNORMALITY OTHER 11/13/2011 BRIDGETT AGUILERA APRN 786.09 RESPIRATORY ABNORMALITY OTHER 11/13/2011 786.09 Respiratory Abnormality Other 11/13/2011 786.09 Respiratory Abnormality Other 11/13/2011 786.09 Respiratory Abnormality Other 11/13/2011 786.09 Respiratory Abnormality Other 11/13/2011 RAHUL ZHU APRN 786.09 Respiratory Abnormality Other 11/13/2011 BELTRAN MARIBEL WATTERSA K 786.09 Respiratory Abnormality Other 11/13/2011 786.09 Respiratory Abnormality Other 11/13/2011 ZHU FLATBED OWNER OPERATOR, RAHUL R 786.09 Respiratory Abnormality Other 11/13/2011 [...] JULIET K 786.09 Respiratory Abnormality Other 11/13/2011 GRAHAM ESTRELLA, CHRIS Steiner 786.09 Respiratory Abnormality Other 11/13/2011 BELTRAN DO, [...] JULIET K 786.09 Respiratory Abnormality Other 11/13/2011 GRAHAM ESTRELLA, CHRIS Steiner 786.09 Respiratory Abnormality Other 11/13/2011 BELTRAN DO, [...] DPM, KELLE 786.09 Respiratory Abnormality Other 11/13/2011 AUDRA FLATBED OWNER OPERATOR, RAHUL R 786.09 Respiratory Abnormality Other 11/13/2011 [...] JULIET K 786.09 Respiratory Abnormality Other 01/14/2012 JULIET BELTRAN DO K 682.9 CELLULITIS AND ABSCESS OF UNSPECIFIED SITES 01/14/2012 BELTRAN MARIBEL WATTERSA K 782.3 EDEMA 01/14/2012 682.9 CELLULITIS AND ABSCESS OF UNSPECIFIED SITES 01/14/2012 782.3 EDEMA 01/14/2012 682.9 CELLULITIS AND ABSCESS OF UNSPECIFIED SITES 01/14/2012 782.3 EDEMA 01/14/2012 WILLY FLATBED OWNER OPERATOR, BRIDGETT S 682.9 CELLULITIS AND ABSCESS OF UNSPECIFIED SITES 01/14/2012 WILLY FLATBED OWNER OPERATOR, BRIDGETT S 782.3 EDEMA 01/14/2012 682.9 Cellulitis And [...] ALFRED ZHU APRNRICIA R 782.3 Edema 01/14/2012 MARIBEL BELTRAN DOA K 682.9 Cellulitis And Abscess Of Unspecified Sites 01/14/2012 BELTRAN MARIBEL WATTERSA K 782.3 Edema 01/14/2012 682.9 Cellulitis And Abscess Of Unspecified Sites 01/14/2012 782.3 Edema 01/14/2012 SHANNON ZHU APRNIA R 682.9 Cellulitis And Abscess Of Unspecified Sites 01/14/2012 ALFRED ZHU APRNRICIA R 782.3 Edema 01/14/2012 BELTRAN MARIBEL WATTERSA K 682.9 Cellulitis And Abscess Of Unspecified Sites 01/14/2012 BELTRAN MARIBEL WATTERSA K 782.3 Edema 01/14/2012 682.9 Cellulitis And Abscess Of Unspecified Sites 01/14/2012 782.3 Edema 01/14/2012 682.9 Cellulitis And Abscess Of Unspecified Sites 01/14/2012 782.3 Edema 01/14/2012 682.9 Cellulitis And Abscess Of Unspecified Sites 01/14/2012 782.3 Edema 01/14/2012 BELTRAN DO, JULIET K 682.9 Cellulitis And Abscess Of Unspecified Sites 01/14/2012 BELTRAN DO, JULIET K 782.3 Edema 01/14/2012 ZHU FLATBED OWNER OPERATOR, RAHUL R 682.9 Cellulitis And Abscess Of Unspecified Sites 01/14/2012 ZHU FLATBED OWNER OPERATOR, RAHUL R 782.3 Edema 01/14/2012 BELTRAN DO, [...] 01/14/2012 CHRIS STEVENSON MD 782.3 Edema 01/14/2012 BELTRAN DO, JULIET K [...] BELTRAN DO, JULIET K 782.3 Edema 01/14/2012 KELLE DIAZ DPM 682.9 Cellulitis And Abscess Of Unspecified Sites 01/14/2012 LUCA DPM, KELLE 782.3 Edema 01/14/2012 ZHU FLATBED OWNER OPERATOR, RAHUL R 682.9 Cellulitis And Abscess Of Unspecified Sites 01/14/2012 ZHU FLATBED OWNER OPERATOR, RAHUL R 782.3 Edema 01/14/2012 BELTRAN DO, [...] V58.69 MEDICATION HIGH RISK 01/19/2012 BELTRAN DO, JLUIET K 453.40 DVT - LOWER EXTREMITY 01/19/2012 [...] K 453.40 DVT - LOWER EXTREMITY 01/19/2012 BELTARN DO, JULIET K V58.69 MEDICATION HIGH RISK 01/19/2012 GRAHAM ESTRELLA, CHRIS Steiner 453.40 DVT - LOWER EXTREMITY 01/19/2012 CHRIS [...] CHRIS Steiner V58.69 MEDICATION HIGH RISK 01/19/2012 CHRIS STEVENSON [...] JULIET K V58.69 MEDICATION HIGH RISK 01/19/2012 BLETRAN DO, JULIET K 453.40 DVT - LOWER EXTREMITY 01/19/2012 BELTRAN DO, JULIET K V58.69 MEDICATION HIGH RISK 01/19/2012 LUCA DPM, KELLE 453.40 DVT - LOWER EXTREMITY 01/19/2012 LUCA DPM, KELLE V58.69 MEDICATION HIGH RISK 01/19/2012 ZHU FLATBED OWNER OPERATOR, RAHUL R 453.40 DVT - LOWER EXTREMITY 01/19/2012 ZHU FLATBED OWNER OPERATOR, RAHUL R V58.69 MEDICATION HIGH RISK 01/19/2012 [...] CHRIS Steiner V58.69 MEDICATION HIGH RISK 01/19/2012 CHRIS STEVENSON [...] 782.3 SOFT TISSUE SWELLING (NON-JOINT) [SX] 04/20/2012 GRAHAM ESTRELLA, CHRIS Steiner 782.3 SOFT TISSUE SWELLING (NON-JOINT) [SX] 04/20/2012 [...] SOFT TISSUE SWELLING (NON-JOINT) [SX] 04/20/2012 ZHU FLATBED OWNER OPERATORRAHUL R 782.3 SOFT TISSUE SWELLING (NON-JOINT) [SX] [...] SOFT TISSUE SWELLING (NON-JOINT) [SX] 04/20/2012 BELTRAN DO JULIET K 782.3 SOFT TISSUE SWELLING (NON-JOINT) [SX] 04/20/2012 CHRIS STEVENSON MD 782.3 SOFT TISSUE SWELLING (NON-JOINT) [SX] 04/20/2012 CHRIS STEVENSON MD 782.3 SOFT TISSUE SWELLING (NON-JOINT) [SX] 04/20/2012 JULIET BELTRAN DO K 782.3 SOFT TISSUE SWELLING (NON-JOINT) [SX] 04/20/2012 CHRIS STEVENSON MD 782.3 SOFT TISSUE SWELLING (NON-JOINT) [SX] 04/20/2012 JULIET BELTRAN DO K 782.3 SOFT TISSUE SWELLING (NON-JOINT) [SX] 04/22/2012 [...] RAHUL ZHU APRN 799.02 HYPOXEMIA 07/28/2012 BELTRAN DO JULIET K 789.09 ABDOMINAL PAIN OTHER SPECIFIED SITE 07/28/2012 BELTRAN DO JULIET K 799.02 HYPOXEMIA 07/28/2012 BELTRAN DO JULIET K 789.09 ABDOMINAL PAIN OTHER SPECIFIED SITE 07/28/2012 BELTRAN DO JULIET K 799.02 HYPOXEMIA 07/28/2012 BELTRAN DO, [...] DO JULIET K 799.02 HYPOXEMIA 07/28/2012 BELTRAN DO, [...] OTHER SPECIFIED SITE 07/28/2012 GRAHAM ESTRELLA, CHRIS Steiner 799.02 HYPOXEMIA 07/28/2012 CHRSI STEVENSON MD 789.09 ABDOMINAL PAIN OTHER SPECIFIED SITE 07/28/2012 GRAHAM ESTRELLA, CHRIS Steiner 799.02 HYPOXEMIA 07/28/2012 BELTRAN DO, JULIET K [...] OTHER SPECIFIED SITE 07/28/2012 RAHUL ZHU APRN Roxy 799.02 HYPOXEMIA 07/28/2012 BELTRAN DO, JULIET K [...] K 799.02 HYPOXEMIA 07/28/2012 GRAHAM ESTRELLA, CHRIS N 789.09 ABDOMINAL PAIN OTHER SPECIFIED SITE 07/28/2012 CHRIS STEVENSON MD N 799.02 HYPOXEMIA 07/28/2012 BELTRAN DO, JULIET K 789.09 ABDOMINAL PAIN OTHER SPECIFIED SITE 07/28/2012 BELTRAN DO, JULIET K 799.02 HYPOXEMIA 09/27/2012 496 COPD 09/27/2012 729.5 PAIN IN LIMB 09/27/2012 BELTRAN DO, JULIET K 496 COPD 09/27/2012 BELTRAN DO, JULIET K 729.5 PAIN IN LIMB 09/27/2012 AUDRA FLATBED OWNER OPERATORALFREDRAHUL R 496 COPD 09/27/2012 AUDRA FLATBED OWNER OPERATORSHANNON SteinerIA R 729.5 PAIN IN LIMB 09/27/2012 BELTRAN [...] GRAHAM ESTRELLA, CHRIS N 496 COPD 09/27/2012 CHRIS STEVENSON MD [...] GRAHAM ESTRELLA, CHRIS Steiner 496 COPD 09/27/2012 CHRIS STEVENSON MD 729.5 [...] GRAHAM ESTRELLA, CHRIS N 496 COPD 09/27/2012 CHRIS STEVENSON MD N 729.5 PAIN IN LIMB 09/27/2012 GRAHAM ESTRELLA, CHRIS N 496 COPD 09/27/2012 CHRIS STEVENSON MD [...] KELLE 729.5 PAIN IN LIMB 09/27/2012 AUDRA FLATBED OWNER OPERATOR, RAHUL R 496 COPD 09/27/2012 AUDRA FLATBED OWNER OPERATOR, RAHUL R 729.5 PAIN IN LIMB 09/27/2012 [...] JLUIET K V03.82 PPV23 (PNEUMOVAX) DX 12/06/2012 CHRIS [...] JULIET K V03.82 PPV23 (PNEUMOVAX) DX 12/06/2012 KELLE DIAZ DPM V03.82 PPV23 (PNEUMOVAX) DX 12/06/2012 RAHUL ZHU APRN R V03.82 PPV23 (PNEUMOVAX) DX 12/06/2012 BELTRAN DO, JULIET K V03.82 PPV23 (PNEUMOVAX) DX 12/06/2012 BELTRAN DO, JULIET K V03.82 PPV23 (PNEUMOVAX) DX 12/06/2012 BELTRAN DO, JULIET K V03.82 PPV23 (PNEUMOVAX) DX 12/06/2012 BELTRAN DO, JULIET K V03.82 PPV23 (PNEUMOVAX) DX 12/06/2012 BELTRAN DO, JULIET K V03.82 PPV23 (PNEUMOVAX) DX 12/06/2012 BETLRAN DO, JULIET K V03.82 PPV23 (PNEUMOVAX) DX 12/06/2012 CHRIS STEVENSON MD V03.82 PPV23 (PNEUMOVAX) DX 12/06/2012 CRHIS STEVENSON MD V03.82 PPV23 (PNEUMOVAX) DX 12/06/2012 [...] BELTRAN DO, JULIET K 786.2 COUGH 12/23/2012 BELRTAN DO, JULIET K 786.2 COUGH 12/23/2012 BELTRAN DO, JULIET K 786.2 COUGH 12/23/2012 BELTRAN DO, JULIET K 786.2 COUGH 12/23/2012 BELTRAN DO, JULIET K 786.2 COUGH 12/23/2012 LUCA DPM, KELEL 786.2 COUGH 12/23/2012 AUDRA FLATBED OWNER OPERATOR, RAHUL R 786.2 COUGH 12/23/2012 BELTRAN DO, [...] PRESSURE READING WITHOUT DIAGNOSIS OF HYPERTENSION 01/14/2013 KELLE DIAZ DPM 796.2 ELEVATED BLOOD PRESSURE READING WITHOUT DIAGNOSIS [...] CHRIS N 780.99 OTHER GENERAL SYMPTOMS 01/24/2013 CHRIS STEVENSON MD N 784.42 DYSPHONIA 01/24/2013 GRAHAM ESTRELLA, CHRIS N 780.99 OTHER GENERAL SYMPTOMS 01/24/2013 CHRIS [...] LUCA DPM, KELLE 784.42 DYSPHONIA 01/24/2013 ZHU FLATBED OWNER OPERATOR, RAHUL R 780.99 OTHER GENERAL SYMPTOMS 01/24/2013 ZHU FLATBED OWNER OPERATOR, RAHUL R 784.42 DYSPHONIA 01/24/2013 BELTRAN DO, [...] MD 784.42 DYSPHONIA 01/24/2013 CHRIS STEVENSON MD N [...] JULIET K 704.00 ALOPECIA UNSPECIFIED 04/06/2013 LUCA DPKELLE Garsia 704.00 ALOPECIA UNSPECIFIED 04/06/2013 AUDRA DIAZRAHUL R 704.00 ALOPECIA UNSPECIFIED 04/06/2013 BELTRAN DO, [...] SPECIFIED PRE-OPERATIVE EXAMINATION 04/19/2013 AUDRA DIAZ RAHUL Roxy V72.83 OTHER SPECIFIED PRE-OPERATIVE EXAMINATION 04/19/2013 [...] BELTRAN DO, JULIET K 786.09 DYSPNEA 06/01/2013 BELRTAN DO, JULIET K 278.00 OBESITY 06/01/2013 BELTRAN [...] LUCA DPM, KELLE 786.09 DYSPNEA 06/01/2013 AUDRA FLATBED OWNER OPERATOR, RAHUL R 278.00 OBESITY 06/01/2013 AUDRA FLATBED OWNER OPERATOR, RAHUL R 786.09 DYSPNEA 06/01/2013 BELTRAN DO, [...] DO, JULIET K 786.09 DYSPNEA 06/01/2013 GRAHAM ESTRELAL, CHRIS N 278.00 OBESITY 06/01/2013 CHRIS STEVENSON MD 786.09 DYSPNEA 06/01/2013 GRAHAM ESTRELLA, CHRIS N 278.00 OBESITY 06/01/2013 CHRIS STEVENSON MD N 786.09 DYSPNEA 06/01/2013 BELTRAN DO, JULIET K 278.00 OBESITY 06/01/2013 BELTRAN DO, JULIET K 786.09 DYSPNEA 06/01/2013 BELTRAN DO, JULIET K 278.00 OBESITY 06/01/2013 BELTRAN DO, JULIET K 786.09 DYSPNEA 06/01/2013 GRAHAM ESTRELLA, CHRIS Steiner 278.00 OBESITY 06/01/2013 GRAHAM ESTRELLA, CHRIS Steiner 786.09 DYSPNEA 06/01/2013 GRAHAM ESTRELLA, CHRIS Steiner 278.00 OBESITY 06/01/2013 CHRIS STEVENSON MD 786.09 DYSPNEA 06/01/2013 BELTRAN DO, JULIET K 278.00 OBESITY 06/01/2013 BELTRAN DO, JULIET K 786.09 DYSPNEA 06/01/2013 CHRIS STEVENSON MD 278.00 OBESITY 06/01/2013 CHRIS STEVENSON MD 786.09 DYSPNEA 06/01/2013 BELTRAN DO, JULIET K 278.00 OBESITY 06/01/2013 BELTRAN DO, JULIET K 786.09 DYSPNEA 06/10/2013 CHRIS STEVENSON MD 461.9 SINUSITIS ACUTE 06/10/2013 EBLTRAN DO, JULIET K 461.9 SINUSITIS ACUTE 06/10/2013 [...] 461.9 SINUSITIS ACUTE 06/10/2013 CHRIS STEVENSON MD N 461.9 SINUSITIS ACUTE 06/10/2013 BELTRAN DO, JULIET K 461.9 SINUSITIS ACUTE 06/10/2013 BELTRAN DO, JULIET K 461.9 SINUSITIS ACUTE 06/10/2013 BELTRAN DO, JULIET K 461.9 SINUSITIS ACUTE 06/10/2013 BELTRAN DO, JULIET K 461.9 SINUSITIS ACUTE 06/10/2013 BELTRAN DO, JULIET K 461.9 SINUSITIS ACUTE 06/10/2013 BELTRAN DO, JULIET K 461.9 SINUSITIS ACUTE 06/10/2013 CHRIS STEVENSON MD N 461.9 SINUSITIS ACUTE 06/10/2013 CHRIS STEVENSON MD N 461.9 SINUSITIS [...] LUCA DPM, KELLE 461.9 SINUSITIS ACUTE 06/10/2013 ZHU FLATBED OWNER OPERATOR, RAHUL R 461.9 SINUSITIS ACUTE 06/10/2013 BELTRAN [...] STEVENSON MD 461.9 SINUSITIS ACUTE 06/10/2013 BELTRAN , JULIET K 461.9 SINUSITIS ACUTE 06/10/2013 CHRIS STEVENSON MD 461.9 SINUSITIS ACUTE 06/10/2013 BELTRAN DO, UJLIET K 461.9 SINUSITIS ACUTE 08/10/2013 BELTRAN DO, [...] DO, JULIET K V81.1 HYPERTENSION SCREENING 08/10/2013 BLETRAN DO, JULIET K V81.1 HYPERTENSION SCREENING 08/10/2013 [...] K 724.5 BACKACHE UNSPECIFIED 10/17/2013 BELTRAN DO, JULITE K 724.5 BACKACHE UNSPECIFIED 10/17/2013 BELTRAN DO, JULIET K 724.5 BACKACHE UNSPECIFIED 10/17/2013 BELTRAN DO, JULIET K 724.5 BACKACHE UNSPECIFIED 10/17/2013 BELTRAN DO, JULIET K 724.5 BACKACHE UNSPECIFIED 10/17/2013 LUCA DEVRIESM, KELLE 724.5 BACKACHE UNSPECIFIED 10/17/2013 RAHUL ZHU [...] JULIET K V81.1 HYPERTENSION SCREENING 11/18/2013 BELTRAN DOJULIET 783.41 FAILURE TO THRIVE 11/18/2013 BELTRAN DOMARIBELA K 783.41 FAILURE TO THRIVE 11/18/2013 BELTRAN [...] K 783.41 FAILURE TO THRIVE 11/18/2013 LUCA DEVRIESM, KELLE 783.41 FAILURE TO THRIVE 11/18/2013 AUDRA [...] KELLE V76.51 COLON CANCER SCREENING 12/13/2013 ZHU FLATBED OWNER OPERATOR, RAHUL R 706.2 SEBACEOUS CYST 12/13/2013 ZHU FLATBED OWNER OPERATOR, RAHUL R V76.51 COLON CANCER SCREENING 12/13/2013 [...] STEVENSON MD V76.51 COLON CANCER SCREENING 12/13/2013 GRAHAM MD, CHRIS N 706.2 SEBACEOUS CYST 12/13/2013 CHRIS STEVENSON [...] DPM, KELLE V06.1 TDAP DX 12/26/2013 AUDRA FLATBED OWNER OPERATOR, RAHUL R V06.1 TDAP DX 12/26/2013 BELTRAN DO, JULIET K V06.1 TDAP DX 12/26/2013 BELTRAN DO, JULIET K V06.1 TDAP DX 12/26/2013 BELTRAN DO, JULIET K V06.1 TDAP DX 12/26/2013 BELTRAN DO, JUILET K V06.1 TDAP DX 12/26/2013 BELTRAN DO, [...] V06.1 TDAP DX 01/12/2014 CHRIS STEVENSON MD Ot 274.9 01/12/2014 CHRIS STEVENSON MD Ot 706.2 02/03/2014 LUCA DPM, KELLE 727.42 GANGLION OF TENDON SHEATH 02/03/2014 LUCA DPM, KELLE 735.4 HAMMER TOE (ACQUIRED) 02/03/2014 AUDRA FLATBED OWNER OPERATOR, RAHUL R 727.42 GANGLION OF TENDON SHEATH 02/03/2014 AUDRA FLATBED OWNER OPERATOR, RAHUL R 735.4 HAMMER TOE (ACQUIRED) 02/03/2014 AUDRA FLATBED OWNER OPERATOR, RAHUL R 786.07 WHEEZING 02/03/2014 AUDRA FLATBED OWNER OPERATOR, RAHUL R 786.2 COUGH 02/03/2014 BELTRAN DO, JULIET K 727.42 GANGLION OF TENDON SHEATH 02/03/2014 BELTRAN DO, JULIET K 735.4 HAMMER TOE (ACQUIRED) 02/03/2014 BELTRAN DO, JULIET K 786.07 WHEEZING 02/03/2014 BELTRAN DO, JULIET K 786.2 COUGH 02/03/2014 BELTARN DO, JULIET K 727.42 GANGLION OF TENDON [...] K 727.42 GANGLION OF TENDON SHEATH 02/03/2014 BELTARN DO, JULIET K 735.4 HAMMER TOE (ACQUIRED) [...] 02/14/2014 CHRIS STEVENSON MD Ot 706.2 02/20/2014 SARITHA ESTRELLA, YASIR [place] Ot 211.3 02/20/2014 SARITHA ESTRELLA, YASIR [place] Ot 562.10 02/20/2014 SARITHA ESTRELLA, YASIR [place] Ot 600.00 02/20/2014 SARITHA ESTRELLA, YASIR [place] Ot V16.0 02/20/2014 SARITHA ESTRELLA, YASIR [place] Ot V76.51 03/24/2014 CHRIS STEVENSON MD 701.1 HYPERKERATOSIS 03/24/2014 CHRIS STEVENSON MD 701.1 HYPERKERATOSIS 03/24/2014 JULIET BELTRAN DO K 701.1 HYPERKERATOSIS 03/24/2014 MARIBEL BELTRAN DOA K 701.1 HYPERKERATOSIS 03/24/2014 CHRIS STEVENSON MD 701.1 HYPERKERATOSIS 03/24/2014 CHRIS STEVENSON MD 701.1 HYPERKERATOSIS 03/24/2014 JULIET BELTRAN DO K 701.1 HYPERKERATOSIS 03/24/2014 CHRIS STEVENSON MD 701.1 HYPERKERATOSIS 03/24/2014 MARIBEL BELTRAN DOA K 701.1 HYPERKERATOSIS 03/31/2014 CHRIS STEVENSON MD N 368.2 DIPLOPIA 03/31/2014 CHRIS STEVENSON MD 368.2 DIPLOPIA 03/31/2014 MARIBEL BELTRAN DOA K 368.2 DIPLOPIA 03/31/2014 MARIBEL BELTRAN DOA K 368.2 DIPLOPIA 03/31/2014 CHRIS STEVENSON MD N 368.2 DIPLOPIA 03/31/2014 CHRIS STEVENSON MD 368.2 DIPLOPIA 03/31/2014 MARIBEL BELTRAN DOA K 368.2 DIPLOPIA 03/31/2014 CHRIS STEVENSON MD N 368.2 DIPLOPIA 03/31/2014 JULIET BELTRAN DO K 368.2 DIPLOPIA 04/07/2014 CHRIS STEVENSON MD N V81.1 HYPERTENSION SCREENING 04/07/2014 MARIBEL BELTRAN DOA K V81.1 HYPERTENSION SCREENING 04/07/2014 MARIBEL BELTRAN DOA K V81.1 HYPERTENSION SCREENING 04/07/2014 CHRIS STEVENSON MD V81.1 HYPERTENSION SCREENING 04/07/2014 CHRIS STEVENSON MD V81.1 HYPERTENSION SCREENING 04/07/2014 MARIBEL BELTRAN DOA K V81.1 HYPERTENSION SCREENING 04/07/2014 CHRIS STEVENSON MD N V81.1 HYPERTENSION SCREENING 04/07/2014 JULIET BELTRAN DO K V81.1 HYPERTENSION SCREENING 04/13/2014 GRAHAM ESTRELLA, [...] Ot 786.05 04/18/2014 SANTO ESTRELLA FACC, SOFIA BRASHER CCDS Ot 278.00 04/18/2014 SANTO ESTRELLA FACC, SOFIA LIUP CCDS Ot 786.09 04/18/2014 SANTO ESTRELLA FACC, ALI FACP CCDS Ot 278.00 04/18/2014 SANTO ESTRELLA [facility], [facility] CCDS Ot 786.09 04/18/2014 SANTO ESTRELLA [facility], [facility] CCDS Ot V85.43 04/18/2014 CHRIS STEVENSON MD [...] VENTRAL HERNIA WITHOUT OBSTRUCTION OR GANGRENE 05/05/2014 MARIBEL BELTRAN DOA K 553.20 UNSPECIFIED VENTRAL HERNIA WITHOUT OBSTRUCTION OR GANGRENE 05/25/2014 CHRIS STEVENSON MD Ot 331.9 05/25/2014 CHRIS STEVENSON MD Ot 723.0 05/26/2014 BELTRAN JULIET WATTERS K 278.02 OVERWEIGHT 05/26/2014 DEVIN WATTERS JULIET K 783.41 FAILURE TO THRIVE 05/26/2014 MARIBEL BELTRAN DOA K 278.02 OVERWEIGHT 05/26/2014 MARIBEL BELTRAN DOA K 783.41 FAILURE TO THRIVE 05/26/2014 CHRIS STEVENSON MD N 278.02 OVERWEIGHT 05/26/2014 CHRIS STEVENSON MD 783.41 FAILURE TO THRIVE 05/26/2014 CHRIS STEVENSON MD N 278.02 OVERWEIGHT 05/26/2014 CHRIS STEVENSON MD N 783.41 FAILURE TO THRIVE 05/26/2014 JULIET BELTRAN DO K 278.02 OVERWEIGHT 05/26/2014 JULIET BELTRAN DO K 783.41 FAILURE TO THRIVE 05/26/2014 CHRIS STEVENSON MD N 278.02 OVERWEIGHT 05/26/2014 CHRIS STEVENSON MD N 783.41 FAILURE TO THRIVE 05/26/2014 JULIET BELTRAN DO K 278.02 OVERWEIGHT 05/26/2014 JULIET BELTRAN DO K 783.41 FAILURE TO THRIVE 06/26/2014 Ot [...] FACP CCDS Ot 278.00 06/28/2014 SANTO ESTRELLA [facility], ALI FACP CCDS Ot 786.09 06/28/2014 SANTO ESTRELLA [facility] CCDS Ot V85.43 06/28/2014 GRAHAM ESTRELLA, CHRIS Steiner Ot 274.9 06/28/2014 GRAHAM ESTRELLA, CHRIS N Ot 706.2 06/28/2014 SARITHA ESTRELLA, YASIR Milan Ot 211.3 06/28/2014 SARITHA ESTRELLA, YASIR Milan Ot 562.10 06/28/2014 SARITHA ESTRELLA, YASIR Mlian Ot 600.00 06/28/2014 SARITHA ESTRELLA, YASIR Milan [...] STUCKER PA, DANDRE T Ot V57.1 09/04/2014 NYA PA, DANDRE Can Ot 723.1 09/04/2014 NYA PA, DANDRE Can Ot V57.1 09/06/2014 NYA PA, DANDRE Can Ot 723.1 09/06/2014 STJOANN PA, DADNRE Can Ot V57.1 10/05/2014 NYA PA, DANDRE Can Ot 723.1 CERVICALGIA 10/05/2014 NYA PA, DANDRE Can Ot V57.1 PHYSICAL THERAPY NEC [...] GRAHAM ESTRELLA, CHRIS Steiner Ot 723.0 03/19/2015 STJOANN PA, DANDRE T [...] G47.33 OBSTRUCTIVE SLEEP APNEA (ADULT) (PEDIATR 04/11/2015 FREDY ESCALANTE MD Ot N20.0 CALCULUS OF KIDNEY 04/11/2015 BORIS ESTRELLA, FREDY Nguyen Ot Z11.2 ENCOUNTER FOR SCREENING FOR OTHER BACTER 04/13/2015 CARMELA EMANUEL APRN Ot G47.33 OBSTRUCTIVE SLEEP APNEA (ADULT) (PEDIATR 04/17/2015 FREDY ESCALANTE MD Ot N20.9 04/17/2015 FREDY ESCALANTE MD Ot N20.0 CALCULUS OF KIDNEY 04/24/2015 JOANIE BRUSH MD Ot 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 [...] V12.51 04/27/2015 Ot V58.61 04/27/2015 KANDY TALLEY FLATBED OWNER OPERATOR Ot 786.05 04/27/2015 SANTO ESTRELLA FAC, ALI FACP CCDS Ot 278.00 04/27/2015 SANTO ESTRELLA FAC, ALI FACP CCDS Ot 786.09 04/27/2015 SANTO ESTRELLA FAC, ALI FACP CCDS Ot 278.00 04/27/2015 SANTO ESTRELLA FAC, ALI FACP CCDS Ot 786.09 04/27/2015 SANTO ESTRELLA FAC, ALI FACP CCDS Ot V85.43 04/27/2015 GRAHAM ESTRELAL, CHRIS Steiner Ot 274.9 04/27/2015 GRAHAM ESTRELLA, [...] Nguyen Ot N20.9 04/27/2015 BORIS ESTRELLA, FREDY Nguyen Ot N20.0 04/27/2015 BORIS ESTRELLA, FREDY Nguyen Ot Z01.818 04/27/2015 BORIS ESTRELLA, FREDY A [...] SAIGE Carver Ot R53.83 OTHER FATIGUE 07/12/2015 JONATHAN ESTRELLA, SAIGE Carver Ot Z01.812 ENCOUNTER FOR PREPROCEDURAL LABORATORY E 07/12/2015 SAIGE CASTILLO MD Ot Z01.818 ENCOUNTER FOR OTHER PREPROCEDURAL EXAMIN 07/12/2015 SAIGE CASTILLO MD Ot Z01.811 ENCOUNTER FOR PREPROCEDURAL RESPIRATORY 07/12/2015 SAIGE CASTILLO MD Ot Z01.812 ENCOUNTER FOR PREPROCEDURAL LABORATORY E 07/13/2015 JONATHAN ESTRELLA, SAIGE Carver Ot M17.11 UNILATERAL PRIMARY OSTEOARTHRITIS, RIGHT 07/13/2015 JONATHAN ESTRELLA, SAIGE Carver Ot Z01.812 ENCOUNTER FOR PREPROCEDURAL LABORATORY E 07/13/2015 SAIGE CASTILLO MD Ot Z01.818 ENCOUNTER FOR OTHER PREPROCEDURAL EXAMIN 07/19/2015 Ot 787.91 DIARRHEA 07/19/2015 DANDRE MARHSALL Ot 723.1 CERVICALGIA 07/19/2015 DANDRE MARSHALL Ot V57.1 PHYSICAL THERAPY NEC 07/19/2015 SAIGE CASTILLO MD Ot E66.9 OBESITY, UNSPECIFIED 07/19/2015 SAIGE CASTILLO MD Ot E78.5 HYPERLIPIDEMIA, UNSPECIFIED 07/19/2015 SAIGE CASTILLO MD Ot F41.9 ANXIETY DISORDER, UNSPECIFIED 07/19/2015 SAIGE CASTILLO MD Ot 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 07/19/2015 JONATHAN ESTRELLA, SAIGE Carver Ot G47.00 INSOMNIA, UNSPECIFIED 07/19/2015 SAIGE CASTILLO MD Ot G47.33 OBSTRUCTIVE SLEEP APNEA (ADULT) (PEDIATR 07/19/2015 SAIGE CASTILLO MD Ot I10 ESSENTIAL (PRIMARY) HYPERTENSION 07/19/2015 SAIGE CASTILLO MD Ot J30.9 ALLERGIC RHINITIS, UNSPECIFIED 07/19/2015 JONATHAN ESRTELLA, SAIGE Carver Ot K21.9 GASTRO-ESOPHAGEAL REFLUX DISEASE WITHOUT 07/19/2015 SAIGE CASTILLO MD Ot K58.9 IRRITABLE BOWEL SYNDROME WITHOUT DIARRHE 07/19/2015 SAIGE CASTILLO MD Ot M10.9 GOUT,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 562.10 DIVERTICULOSIS COLON (W/O MENT OF HEMORR 02/26/2018 YASIR MELARA MD Ot 600.00 HYPERTROPHY (BENIGN) 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 02/26/2018 MELARA MD, YASIR D Ot V16.0 FAMILY HX-GI MALIGNANCY 02/26/2018 SARITHA ESTRELLA, YASIR Milan Ot V76.51 SCREEN MAL NEOP-COLON 02/26/2018 YASIR MELARA MD Ot V72.84 EXAM PRE-OPERATIVE NOS 02/26/2018 GRAHAM ESTRELLA, CHRIS Steiner Ot 331.9 CEREB DEGENERATION NOS 02/26/2018 GRAHAM ESTRELLA, CHRIS Steiner Ot 723.0 CERVICAL SPINAL STENOSIS 02/26/2018 DANDRE MARSHALL Ot 723.1 CERVICALGIA 02/26/2018 DANDRE MARSHALL Ot V57.1 PHYSICAL THERAPY NEC 02/26/2018 CISCO ESTRELLA, MURIEL Garsia Ot R13.10 DYSPHAGIA, UNSPECIFIED 02/26/2018 CISCO ESTRELLA, MURIEL Garsia Ot Z01.818 ENCOUNTER FOR OTHER PREPROCEDURAL EXAMIN 02/26/2018 BORIS ESTRELLA, FREDY Nguyen Ot N20.9 URINARY CALCULUS, UNSPECIFIED 02/26/2018 BORIS ESTRELLA, FREDY Nguyen Ot N20.0 CALCULUS OF KIDNEY 02/26/2018 BORIS ESTRELLA, FREDY Nguyen Ot Z01.818 ENCOUNTER FOR OTHER PREPROCEDURAL EXAMIN 02/26/2018 FREDY ESCALANTE MD Ot N20.0 CALCULUS OF KIDNEY 02/26/2018 BORIS ESTRELLA, FREDY Nguyen Ot Z01.818 ENCOUNTER FOR OTHER PREPROCEDURAL EXAMIN 02/26/2018 FREDY ESCALANTE MD Ot N20.0 CALCULUS OF KIDNEY 02/26/2018 BORIS ESTRELLA, FREDY Nguyen Ot N20.0 CALCULUS OF KIDNEY 02/26/2018 FREDY ESCALANTE MD Ot Z01.818 ENCOUNTER FOR OTHER PREPROCEDURAL EXAMIN 02/26/2018 FREDY ESCALANTE MD Ot N20.0 CALCULUS OF KIDNEY 02/26/2018 FREDY ESCALANTE MD Ot Z98.89 OTHER SPECIFIED POSTPROCEDURAL STATES 02/26/2018 FREDY ESCALANTE MD Ot N20.0 CALCULUS OF KIDNEY 02/26/2018 FREDY ESCALANTE MD Ot Z98.89 OTHER SPECIFIED POSTPROCEDURAL STATES 02/26/2018 JOSEPH SHAW APRN Ot M54.41 LUMBAGO WITH SCIATICA, RIGHT SIDE 02/26/2018 JOSEPH SHAW Roxy DIAZ Ot M54.41 LUMBAGO WITH SCIATICA, RIGHT SIDE 02/26/2018 NAZARIOPARAS TALAMANTES Noah DIAZ Ot J18.1 LOBAR PNEUMONIA, UNSPECIFIED ORGANISM 02/26/2018 GRAHAM ESTRELLA, CHRIS Steiner Ot R10.31 RIGHT LOWER QUADRANT PAIN 02/26/2018 QUETA PITTMAN LYN Ot M25.511 PAIN IN RIGHT SHOULDER 03/01/2018 MIGUEL MCMILLAN MD Ot E78.00 PURE HYPERCHOLESTEROLEMIA, UNSPECIFIED 03/01/2018 MIGUEL MCMILLAN MD Ot F32.9 MAJOR DEPRESSIVE DISORDER, SINGLE EPISOD 03/01/2018 MIGUEL MCMILLAN MD Ot F41.9 ANXIETY DISORDER, UNSPECIFIED 03/01/2018 MIGUEL MCMILLAN MD Ot G47.30 SLEEP APNEA, UNSPECIFIED 03/01/2018 MIGUEL MCMILLAN MD Ot I10 ESSENTIAL (PRIMARY) HYPERTENSION 03/01/2018 MIGUEL MCMILLAN MD Ot J44.9 CHRONIC OBSTRUCTIVE PULMONARY DISEASE, U 03/01/2018 MIGUEL MCMILLAN MD Ot K21.9 GASTRO-ESOPHAGEAL REFLUX DISEASE WITHOUT 03/01/2018 MIGUEL MCMILLAN MD Ot M10.9 GOUT, UNSPECIFIED 03/01/2018 MIGUEL MCMILLAN MD Ot M25.561 PAIN IN RIGHT KNEE 03/01/2018 MIGUEL MCMILLAN MD Ot M54.41 LUMBAGO WITH SCIATICA, RIGHT SIDE 03/01/2018 MIGUEL MCMILLAN MD Ot Z79.51 DRAWER IN STITCH BONDING MACHINE (CURRENT) USE OF INHALED STERO 03/01/2018 MIGUEL MCMILLAN MD Ot Z79.52 DRAWER IN STITCH BONDING MACHINE (CURRENT) USE OF SYSTEMIC STER 03/01/2018 MIGUEL MCMILLAN MD Ot Z80.0 FAMILY HISTORY OF MALIGNANT NEOPLASM OF 03/01/2018 MIGUEL MCMILLAN MD Ot Z82.49 FAMILY HX OF ISCHEM HEART DIS AND OTH DI 03/01/2018 MIGUEL MCMILLAN MD Ot Z86.010 PERSONAL HISTORY OF COLONIC POLYPS 03/01/2018 MIGUEL MCMILLAN MD Ot Z86.718 PERSONAL HISTORY OF OTHER VENOUS THROMBO 03/01/2018 MIGUEL MCMILLAN MD Ot Z87.19 PERSONAL HISTORY OF OTHER DISEASES OF TH 03/01/2018 MIGUEL MCMILLAN MD Ot Z87.442 PERSONAL HISTORY OF URINARY CALCULI 03/01/2018 MIGUEL MCMILLAN MD Ot Z87.448 PERSONAL HISTORY OF OTHER DISEASES OF UR 03/01/2018 MIGUEL MCMILLAN MD Ot Z88.0 ALLERGY STATUS TO PENICILLIN 03/01/2018 MIGUEL MCMILLAN MD Ot Z88.2 ALLERGY STATUS TO SULFONAMIDES STATUS 03/01/2018 MIGUEL MCMILLAN MD Ot Z98.84 BARIATRIC SURGERY STATUS 03/01/2018 MIGUEL MCMILLAN MD Ot Z98.890 OTHER SPECIFIED POSTPROCEDURAL STATES 03/03/2018 QUETA PITTMAN HOME DEMONSTRATION AGENT Ot M25.511 PAIN IN RIGHT SHOULDER 03/04/2018 MIGUEL MCMILLAN MD Ot E78.00 PURE HYPERCHOLESTEROLEMIA, UNSPECIFIED 03/04/2018 MIGUEL MCMILLAN MD Ot F32.9 MAJOR DEPRESSIVE DISORDER, SINGLE EPISOD 03/04/2018 MIGUEL MCMILLAN MD Ot F41.9 ANXIETY DISORDER, UNSPECIFIED 03/04/2018 MIGUEL MCMILLAN MD Ot G47.30 SLEEP APNEA, UNSPECIFIED 03/04/2018 MIGUEL MCMILLAN MD Ot I10 ESSENTIAL (PRIMARY) HYPERTENSION 03/04/2018 MIGUEL MCMILLAN MD Ot J44.9 CHRONIC OBSTRUCTIVE PULMONARY DISEASE, U 03/04/2018 MIGUEL MCMILLAN MD Ot K21.9 GASTRO-ESOPHAGEAL REFLUX DISEASE WITHOUT 03/04/2018 MIGUEL MCMILLAN MD Ot M10.9 GOUT, UNSPECIFIED 03/04/2018 MIGUEL MCMILLAN MD Ot M25.561 PAIN IN RIGHT KNEE 03/04/2018 MIGUEL MCMILLAN MD Ot M54.41 LUMBAGO WITH SCIATICA, RIGHT SIDE 03/04/2018 MIGUEL MCMILLAN MD Ot Z79.51 DRAWER IN STITCH BONDING MACHINE (CURRENT) USE OF INHALED STERO 03/04/2018 MIGUEL MCMILLAN MD Ot Z79.52 DRAWER IN STITCH BONDING MACHINE (CURRENT) USE OF SYSTEMIC STER 03/04/2018 MIGUEL MCMILLAN MD Ot Z80.0 FAMILY HISTORY OF MALIGNANT NEOPLASM OF 03/04/2018 MIGUEL MCMILLAN MD Ot Z82.49 FAMILY HX OF ISCHEM HEART DIS AND OTH DI 03/04/2018 MIGUEL MCMILLAN MD Ot Z86.010 PERSONAL HISTORY OF COLONIC POLYPS 03/04/2018 MIGUEL MCMILLAN MD Ot Z86.718 PERSONAL HISTORY OF OTHER VENOUS THROMBO 03/04/2018 MIGUEL MCMILLAN MD Ot Z87.19 PERSONAL HISTORY OF OTHER DISEASES OF TH 03/04/2018 MIGUEL MCMILLAN MD Ot Z87.442 PERSONAL HISTORY OF URINARY CALCULI 03/04/2018 MIGUEL MCMILLAN MD Ot Z87.448 PERSONAL HISTORY OF OTHER DISEASES OF UR 03/04/2018 MIGUEL MCMILLAN MD Ot Z88.0 ALLERGY STATUS TO PENICILLIN 03/04/2018 MIGUEL MCMILLAN MD Ot Z88.2 ALLERGY STATUS TO SULFONAMIDES STATUS 03/04/2018 MIGUEL MCMILLAN MD Ot Z98.84 BARIATRIC SURGERY STATUS 03/04/2018 MIGUEL MCMILLAN MD Ot Z98.890 OTHER SPECIFIED POSTPROCEDURAL STATES 03/12/2018 MIGUEL MCMILLAN MD Ot E78.00 PURE HYPERCHOLESTEROLEMIA, UNSPECIFIED 03/12/2018 MIGUEL MCMILLAN MD Ot F32.9 MAJOR DEPRESSIVE DISORDER, SINGLE EPISOD 03/12/2018 MIGUEL MCMILLAN MD Ot F41.9 ANXIETY DISORDER, UNSPECIFIED 03/12/2018 MIGUEL MCMILLAN MD Ot G47.30 SLEEP APNEA, UNSPECIFIED 03/12/2018 MIGUEL MCMILLAN MD Ot I10 ESSENTIAL (PRIMARY) HYPERTENSION 03/12/2018 MIGUEL MCMILLAN MD Ot J44.9 CHRONIC OBSTRUCTIVE PULMONARY DISEASE, U 03/12/2018 MIGUEL MCMILLAN MD Ot K21.9 GASTRO-ESOPHAGEAL REFLUX DISEASE WITHOUT 03/12/2018 MIGUEL MCMILLAN MD Ot M10.9 GOUT, UNSPECIFIED 03/12/2018 MIGUEL MCMILLAN MD Ot M25.561 PAIN IN RIGHT KNEE 03/12/2018 MIGUEL MCMILLAN MD Ot M54.41 LUMBAGO WITH SCIATICA, RIGHT SIDE 03/12/2018 MIGUEL MCMILLAN MD Ot Z79.51 DRAWER IN STITCH BONDING MACHINE (CURRENT) USE OF INHALED STERO 03/12/2018 MIGUEL MCMILLAN MD Ot Z79.52 INTERMEDIATE (CURRENT) USE OF SYSTEMIC STER 03/12/2018 MIGUEL MCMILLAN MD Ot Z80.0 FAMILY HISTORY OF MALIGNANT NEOPLASM OF 03/12/2018 MIGUEL MCMILLAN MD Ot Z82.49 FAMILY HX OF ISCHEM HEART DIS AND OTH DI 03/12/2018 MIGUEL MCMILLAN MD Ot Z86.010 PERSONAL HISTORY OF COLONIC POLYPS 03/12/2018 MIGUEL MCMILLAN MD Ot Z86.718 PERSONAL HISTORY OF OTHER VENOUS THROMBO 03/12/2018 MIGUEL MCMILLAN MD Ot Z87.19 PERSONAL HISTORY OF OTHER DISEASES OF TH 03/12/2018 MIGUEL MCMILLAN MD Ot Z87.442 PERSONAL HISTORY OF URINARY CALCULI 03/12/2018 MIGUEL MCMILLAN MD Ot Z87.448 PERSONAL HISTORY OF OTHER DISEASES OF UR 03/12/2018 MIGUEL MCMILLAN MD Ot Z88.0 ALLERGY STATUS TO PENICILLIN 03/12/2018 MIGUEL MCMILLAN MD Ot Z88.2 ALLERGY STATUS TO SULFONAMIDES STATUS 03/12/2018 MIGUEL MCMILLAN MD Ot Z98.84 BARIATRIC SURGERY STATUS 03/12/2018 MIGUEL MCMILLAN MD Ot Z98.890 OTHER SPECIFIED POSTPROCEDURAL STATES 04/28/2018 SANTO ESTRELLA FACC, ALI FACP CCDS Ot 278.00 OBESITY, NOS 04/28/2018 SANTO ESTRELLA FACC, ALI FACP CCDS Ot 786.09 RESPIRATORY ABNORM NEC 04/28/2018 SANTO ESTRELLA FACC, ALI FACP CCDS Ot 278.00 OBESITY, NOS 04/28/2018 SANTO ESTRELLA FACC, ALI FACP CCDS Ot 786.09 RESPIRATORY ABNORM NEC 04/28/2018 SANTO ESTRELLA FACC, ALI FACP CCDS Ot V85.43 BODY MASS INDEX 50.0-59.9, ADULT 04/28/2018 CHRIS STEVENSON MD Ot 274.9 GOUT NOS 04/28/2018 CHRIS STEVENSON MD Ot 706.2 SEBACEOUS CYST 04/28/2018 YASIR MELARA MD Ot 211.3 BENIGN NEOPLASM LG BOWEL 04/28/2018 YASIR MELARA MD Ot 562.10 DIVERTICULOSIS COLON (W/O MENT OF HEMORR 04/28/2018 YASIR MELARA MD Ot 600.00 HYPERTROPHY (BENIGN) 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 04/28/2018 YASIR MELARA MD Ot V16.0 FAMILY HX-GI MALIGNANCY 04/28/2018 YASIR MELARA MD Ot V76.51 SCREEN MAL NEOP-COLON 04/28/2018 SARITHA ESTRELLA, YASIR Milan Ot V72.84 EXAM PRE-OPERATIVE NOS 04/28/2018 GRAHAM ESTRELLA, CHRIS Steiner Ot 331.9 CEREB DEGENERATION NOS 04/28/2018 GRAHAM ESTRELLA, CHRIS Steiner Ot 723.0 CERVICAL SPINAL STENOSIS 04/28/2018 NYA DE LA ROSA, DANDRE Pamella Ot 723.1 CERVICALGIA 04/28/2018 DANDRE MARSHALL Ot V57.1 PHYSICAL THERAPY NEC 04/28/2018 CISCO ESTRELLA, MURIEL Garsia Ot R13.10 DYSPHAGIA, UNSPECIFIED 04/28/2018 CISCO ESTRELLA, MURIEL Garsia Ot Z01.818 ENCOUNTER FOR OTHER PREPROCEDURAL EXAMIN 04/28/2018 BORIS ESTRELLA, FREDY Nguyen Ot N20.9 URINARY CALCULUS, UNSPECIFIED 04/28/2018 BORIS ESTRELLA, FREDY Nguyen Ot N20.0 CALCULUS OF KIDNEY 04/28/2018 BORIS ESTRELLA, FREDY Nguyen Ot Z01.818 ENCOUNTER FOR OTHER PREPROCEDURAL EXAMIN 04/28/2018 BORIS ESTRELLA, FREDY Nguyen Ot N20.0 CALCULUS OF KIDNEY 04/28/2018 BORIS ESTRELLA, FREDY Nguyen Ot Z01.818 ENCOUNTER FOR OTHER PREPROCEDURAL EXAMIN 04/28/2018 BORIS ESTRELLA, FREDY Nguyen Ot N20.0 CALCULUS OF KIDNEY 04/28/2018 BORIS ESTRELLA, FREDY Nguyen Ot N20.0 CALCULUS OF KIDNEY 04/28/2018 FREDY ESCALANTE MD Ot Z01.818 ENCOUNTER FOR OTHER PREPROCEDURAL EXAMIN 04/28/2018 BORIS ESTRELLA, FREDY Nguyen Ot N20.0 CALCULUS OF KIDNEY 04/28/2018 FREDY ESCALANTE MD Ot Z98.89 OTHER SPECIFIED POSTPROCEDURAL STATES 04/28/2018 FREDY ESCALANTE MD Ot N20.0 CALCULUS OF KIDNEY 04/28/2018 FREDY ESCALANTE MD Ot Z98.89 OTHER SPECIFIED POSTPROCEDURAL STATES 04/28/2018 JOSEPH SHAW APRN Ot M54.41 LUMBAGO WITH SCIATICA, RIGHT SIDE 04/28/2018 JOSEPH SHAW APRN Ot M54.41 LUMBAGO WITH SCIATICA, RIGHT SIDE 04/28/2018 PARAS NAZARIO FLATBED OWNER OPERATOR Ot J18.1 LOBAR PNEUMONIA, UNSPECIFIED ORGANISM 04/28/2018 CHRIS STEVENSON MD Ot R10.31 RIGHT LOWER QUADRANT PAIN 05/10/2018 SANTO ESTRELLA FAC, ALI FACP CCDS Ot 278.00 OBESITY, NOS 05/10/2018 SANTO ESTRELLA FACC, ALI FACP CCDS Ot 786.09 RESPIRATORY ABNORM NEC 05/10/2018 SANTO ESTRELLA FACC, ALI FACP CCDS Ot 278.00 OBESITY, NOS 05/10/2018 SANTO ESTRELLA FACC, ALI FACP CCDS Ot 786.09 RESPIRATORY ABNORM NEC 05/10/2018 SANTO ESTRELLA FAC, ALI FACP CCDS Ot V85.43 BODY MASS INDEX 50.0-59.9, ADULT 05/10/2018 CHRIS STEVENSON MD Ot 274.9 GOUT NOS 05/10/2018 CHRIS STEVENSON MD Ot 706.2 SEBACEOUS CYST 05/10/2018 SARITHA ESTRELLA, YASIR Milan Ot 211.3 BENIGN NEOPLASM LG BOWEL 05/10/2018 SARITHA ESTRELLA, YASIR Milan Ot 562.10 DIVERTICULOSIS COLON (W/O MENT OF HEMORR 05/10/2018 YASIR MELARA MD Ot 600.00 HYPERTROPHY (BENIGN) 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 05/10/2018 SARITHA ESTRELLA, YASIR Milan Ot V16.0 FAMILY HX-GI MALIGNANCY 05/10/2018 YASIR MELARA MD Ot V76.51 SCREEN MAL NEOP-COLON 05/10/2018 YASIR MELARA MD Ot V72.84 EXAM PRE-OPERATIVE NOS 05/10/2018 CHRIS STEVENSON MD Ot 331.9 CEREB DEGENERATION NOS 05/10/2018 CHRIS STEVENSON MD Ot 723.0 CERVICAL SPINAL STENOSIS 05/10/2018 DANDRE MARSHALL Ot 723.1 CERVICALGIA 05/10/2018 DANDRE MARSHALL Ot V57.1 PHYSICAL THERAPY NEC 05/10/2018 CISCO ESTRELLA, MURIEL Garsia Ot R13.10 DYSPHAGIA, UNSPECIFIED 05/10/2018 CISCO ESTRELLA, MURIEL Garsia Ot Z01.818 ENCOUNTER FOR OTHER PREPROCEDURAL EXAMIN 05/10/2018 BORIS ESTRELLA, FREDY Nguyen Ot N20.9 URINARY CALCULUS, UNSPECIFIED 05/10/2018 BORIS ESTRELLA, FREDY Nguyen Ot N20.0 CALCULUS OF KIDNEY 05/10/2018 BORIS ESTRELLA, FREDY Nguyen Ot Z01.818 ENCOUNTER FOR OTHER PREPROCEDURAL EXAMIN 05/10/2018 BORIS ESTRELLA, FREDY Nguyen Ot N20.0 CALCULUS OF KIDNEY 05/10/2018 BORIS ESTRELLA, FREDY Nguyen Ot Z01.818 ENCOUNTER FOR OTHER PREPROCEDURAL EXAMIN 05/10/2018 BORIS ESTRELLA, FREDY Nguyen Ot N20.0 CALCULUS OF KIDNEY 05/10/2018 BORIS ESTRELLA, FREDY Nguyen Ot N20.0 CALCULUS OF KIDNEY 05/10/2018 BORIS ESTRELLA, FREDY Nguyen Ot Z01.818 ENCOUNTER FOR OTHER PREPROCEDURAL EXAMIN 05/10/2018 BORIS ESTRELLA, FREDY Nguyen Ot N20.0 CALCULUS OF KIDNEY 05/10/2018 BORIS ESTRELLA, FREDY Nguyen Ot Z98.89 OTHER SPECIFIED POSTPROCEDURAL STATES 05/10/2018 BORIS ESTRELLA, FREDY Nguyen Ot N20.0 CALCULUS OF KIDNEY 05/10/2018 BORIS ESTRELLA, FREDY Nguyen Ot Z98.89 OTHER SPECIFIED POSTPROCEDURAL STATES 05/10/2018 JOSEPH SHAW FLATBED OWNER OPERATOR Ot M54.41 LUMBAGO WITH SCIATICA, RIGHT SIDE 05/10/2018 JOSEPH SHAW FLATBED OWNER OPERATOR Ot M54.41 LUMBAGO WITH SCIATICA, RIGHT SIDE 05/10/2018 PARAS NAZARIO FLATBED OWNER OPERATOR Ot J18.1 LOBAR PNEUMONIA, UNSPECIFIED ORGANISM 05/10/2018 GRAHAM ESTRELLA, CHRIS Steiner Ot R10.31 RIGHT LOWER QUADRANT PAIN 06/24/2018 RAYSHAWN JARAMILLO DO Ot M75.121 COMPLETE ROTATR-CUFF TEAR/RUPTR OF R RUI Procedures Code Description [place] [address] ROUTINE VENIPUNCTURE 01/07/2012 J7613 ALBUTEROL UNIT DOSE FORM INHALED 01/07/2012 31471 CBC 01/07/2012 20937 CMP 01/07/2012 8660913 GFR CALC (RESULT ONLY) 01/07/2012 73951 TSH 01/08/2012 88040 BNP 01/08/2012 25885 US VENOUS THROMBOSIS IMAGING 01/15/2012 55972 INR (IN HOUSE) 01/19/2012 24856 INR (IN HOUSE) 01/26/2012 85148 INR (IN HOUSE) 02/03/2012 40244 INR (IN HOUSE) 02/05/2012 50229 INR (IN HOUSE) 02/27/2012 77997 INR (IN HOUSE) 03/17/2012 68539 OXIMETRY 03/18/2012 76886 INR (IN HOUSE) 03/24/2012 90682 INR (IN HOUSE) 04/01/2012 98815 ROUTINE VENIPUNCTURE 04/20/2012 48489 BNP 04/20/2012 06367 INR (IN HOUSE) 04/26/2012 16162 VENOUS DOPPLER UNILATERAL/LIMITED 04/28/2012 79550 INR (IN HOUSE) 05/13/2012 01675 JOINT INJECTION- LARGE JOINT (SPECIFY MEDCIN DESCRIPTION) 06/07/2012 22279 XRAY CHEST 2 VIEW 09/03/2012 39561 OXIMETRY 09/03/2012 26189 ROUTINE VENIPUNCTURE 01/24/2013 Otolaryng Saige Wilkerson 01/24/2013 15764 CMP 01/24/2013 93202 LIPID PANEL 01/24/2013 [id number] GFR CALC (RESULT ONLY) 01/24/2013 07925 CBC 01/24/2013 05839 TSH 01/24/2013 2000F BLOOD PRESSURE CHECK 03/31/2013 Cardiolog [place] 04/06/2013 64060 ROUTINE VENIPUNCTURE 04/19/2013 95960 EKG, TRACING (IN-HOUSE) 04/19/2013 47374 CBC 04/19/2013 3745514 GFR CALC (RESULT ONLY) 04/19/2013 78103 CMP 04/19/2013 72913 LIPID PANEL 04/19/2013 24536 MAGNESIUM 04/19/2013 92104 A1C (RML) 04/21/2013 15925 OXIMETRY 06/01/2013 71446 ECHO 2D 06/23/2013 86280 NUCLEAR STRESS TESTING 06/27/2013 65153 OXIMETRY 07/19/20131999F BLOOD PRESSURE CHECK 08/11/2013 WEIGHT CHECK 08/11/2013 BLOOD PRESSURE CHECK 08/23/2013 WEIGHT CHECK 08/23/2013 BLOOD PRESSURE CHECK 08/29/2013 WEIGHT CHECK 08/29/2013 BLOOD PRESSURE CHECK 09/16/2013 BLOOD PRESSURE CHECK 09/18/2013 WEIGHT CHECK 09/18/2013 BLOOD PRESSURE CHECK 09/23/2013 WEIGHT CHECK 09/23/2013 BLOOD PRESSURE CHECK 09/30/2013 WEIGHT CHECK 09/30/2013 81627 JOINT INJECTION- LARGE JOINT (SPECIFY MEDCIN DESCRIPTION) 10/03/2013 98836 OXIMETRY - OVERNIGHT 10/03/2013 BLOOD PRESSURE CHECK 10/07/2013 WEIGHT CHECK 10/07/2013 BLOOD PRESSURE CHECK 10/14/2013 WEIGHT CHECK 10/14/2013 31705 ROUTINE VENIPUNCTURE 10/17/2013 09650 CMP 10/17/2013 00532 CBC 10/17/2013 16786 UA W/ CULTURE IF INDICATED 10/17/2013 BLOOD PRESSURE CHECK 10/21/2013 WEIGHT CHECK 10/21/2013 BLOOD PRESSURE CHECK 10/28/2013 WEIGHT CHECK 10/28/2013 WEIGHT CHECK 11/07/2013 BLOOD PRESSURE CHECK 11/07/2013 WEIGHT CHECK 11/11/2013 BLOOD PRESSURE CHECK 11/11/2013 BLOOD PRESSURE CHECK 11/18/2013 WEIGHT CHECK 11/18/2013 WEIGHT CHECK 11/25/2013 BLOOD PRESSURE CHECK 12/02/2013 WEIGHT CHECK 12/02/2013 BLOOD PRESSURE CHECK 12/09/2013 WEIGHT CHECK 12/09/2013 48137 US SOFT TISSUE (SPECIFY LOCATION) 12/13/2013 INTERNAL YASIR MELARA 12/13/2013 Podiatry Kelle Diaz 12/16/2013 BLOOD PRESSURE CHECK 12/16/2013 WEIGHT CHECK 12/16/2013 BLOOD PRESSURE CHECK 12/24/2013 WEIGHT CHECK 12/24/2013 BLOOD PRESSURE CHECK 12/30/2013 WEIGHT CHECK 12/30/2013 BLOOD PRESSURE CHECK 01/06/2014 WEIGHT CHECK 01/06/2014 BLOOD PRESSURE CHECK 01/13/2014 WEIGHT CHECK 01/13/2014 BLOOD PRESSURE CHECK 01/20/2014 WEIGHT CHECK 01/20/2014 BLOOD PRESSURE CHECK 01/27/2014 WEIGHT CHECK 01/27/2014 00993 ASPIRATE/INJ GANGLION CYST 02/03/2014 BLOOD PRESSURE CHECK 02/10/2014 WEIGHT CHECK 02/10/2014 BLOOD PRESSURE CHECK 02/17/2014 WEIGHT CHECK 02/17/2014 BLOOD PRESSURE CHECK 02/24/2014 WEIGHT CHECK 02/24/2014 BLOOD PRESSURE CHECK 03/03/2014 WEIGHT CHECK 03/03/2014 BLOOD PRESSURE CHECK 03/10/2014 WEIGHT CHECK 03/10/2014 BLOOD PRESSURE CHECK 03/17/2014 WEIGHT CHECK 03/17/2014 03775 MRI BRAIN W/O & W/DYE 03/31/2014 75033 MRI SPINE (CERVICAL) W/O CONTRAST 03/31/2014 BLOOD PRESSURE CHECK 05/26/2014 WEIGHT CHECK 05/26/2014 BLOOD PRESSURE CHECK 06/02/2014 WEIGHT CHECK 06/02/2014 77585 XRAY KNEE RIGHT 1 OR 2 VIEWS 06/14/2014 BLOOD PRESSURE CHECK 06/16/2014 WEIGHT CHECK 06/16/2014 40637 EKG, TRACING (IN-HOUSE) 06/20/2014 BLOOD PRESSURE CHECK 06/23/2014 WEIGHT CHECK 06/23/2014 [id number] REPLACE OF R KNEE JT WITH SYNTH [...] Automated erythrocyte mean corpuscular hemoglobin concentration measurement (mass/volume) 36 g/dL 32-36 Automated erythrocyte distribution width ratio 12.5 % 10.0- 14.5 Automated blood platelet count (count/volume) 213 10*3/uL [...] Blood monocytes automated count (number/volume) 0.9 10*3 0.0- 1.0 Automated eosinophil count 0.1 10*3/uL 0.0-0.3 Automated [...] Serum or plasma aspartate aminotransferase measurement (enzymatic activity/volume) 18 U/L 5-34 Serum or plasma alanine aminotransferase measurement (enzymatic activity/volume) 16 U/L 0-55 Serum or plasma protein measurement (mass/volume) 6.0 g/dL 6.4-8.2 Serum or plasma albumin measurement (mass/volume) 3.3 g/dL 3.2-4.5 Complete urinalysis with reflex to culture - 11/02/16 21:56 Urine color determination YELLOW NRG Urine clarity determination CLEAR NRG Urine pH measurement by test strip 6 5-9 Specific gravity of urine by test strip 1.020 1.016-1.022 Urine protein assay by test strip, semi-quantitative [...] sediment leukocyte count by microscopy (number/high power field) [HPF] NRG Bacteria detection in urine sediment [...] 285 ng/mL <50 medMATCH Oxymorphone CONSISTENT NRG Complete blood count (CBC) with automated white blood cell (WBC) differential - 02/26/18 19:30 Blood leukocytes automated count (number/volume) 7.2 10*3/uL 4.3-11.0 Blood erythrocytes automated count (number/volume) 4.28 10*6/uL 4.35-5.85 Venous blood hemoglobin measurement (mass/volume) 14.1 g/dL 13.3-17.7 Blood hematocrit (volume fraction) 40 % 40-54 Automated erythrocyte mean corpuscular volume 94 [foz_us] 80-99 Automated erythrocyte mean corpuscular hemoglobin (mass per erythrocyte) 33 pg 25-34 Automated erythrocyte mean corpuscular hemoglobin concentration measurement (mass/volume) 35 g/dL 32-36 Automated erythrocyte distribution width ratio 12.5 % 10.0- 14.5 Automated blood platelet count (count/volume) 212 10*3/uL 130-400 Automated blood platelet mean volume measurement 9.5 [foz_us] 7.4-10.4 Automated blood neutrophils/100 leukocytes 74 % 42-75 Automated blood lymphocytes/100 leukocytes 18 % 12-44 Blood monocytes/100 leukocytes 6 % 0-12 Automated blood eosinophils/100 leukocytes 2 % 0-10 Automated blood basophils/100 leukocytes 0 % 0-10 Blood neutrophils automated count (number/volume) 5.3 10*3 1.8-7.8 Blood lymphocytes automated count (number/volume) 1.3 10*3 1.0-4.0 Blood monocytes automated count (number/volume) 0.4 10*3 0.0- 1.0 Automated eosinophil count 0.2 10*3/uL 0.0-0.3 Automated blood basophil count (count/volume) 0.0 10*3/uL 0.0-0.1 Erythrocyte sedimentation rate by westergren method - 02/26/18 19:30 Erythrocyte sedimentation rate by westergren method 15 mm 0-30 Comprehensive metabolic panel - 02/26/18 19:30 Serum or plasma sodium measurement (moles/volume) 142 mmol/L 135-145 Serum or plasma potassium measurement (moles/volume) 3.8 mmol/L 3.6-5.0 Serum or plasma chloride measurement (moles/volume) 112 mmol/L 98-107 Carbon dioxide 18 mmol/L 21-32 Serum or plasma anion gap determination (moles/volume) 12 mmol/L 5-14 Serum or plasma urea nitrogen measurement (mass/volume) 20 mg/dL 7-18 Serum or plasma creatinine measurement (mass/volume) 1.42 mg/dL 0.60-1.30 Serum or plasma urea nitrogen/creatinine mass ratio 14 NRG Serum or plasma creatinine measurement with calculation of estimated glomerular filtration rate 50 NRG Serum or plasma glucose measurement (mass/volume) 114 mg/dL 70-105 Serum or plasma calcium measurement (mass/volume) 8.9 mg/dL 8.5-10.1 Serum or plasma total bilirubin measurement (mass/volume) 0.3 mg/dL 0.1-1.0 Serum or plasma alkaline phosphatase measurement (enzymatic activity/volume) 76 U/L 40-136 Serum or plasma aspartate aminotransferase measurement (enzymatic activity/volume) 19 U/L 5-34 Serum or plasma alanine aminotransferase measurement (enzymatic activity/volume) 9 U/L 0-55 Serum or plasma protein measurement (mass/volume) 6.8 g/dL 6.4-8.2 Serum or plasma albumin measurement (mass/volume) 3.6 g/dL 3.2-4.5 CALCIUM CORRECTED 9.2 mg/dL 8.5-10.1 Serum or plasma C reactive protein measurement (mass/volume) - 02/26/18 19:30 Serum or plasma C reactive protein measurement (mass/volume) 0.20 mg/dL 0.00-0.50 Encounters ACCT No. Visit Date/Time Discharge Status Pt. Type Provider Facility Loc./Unit Complaint [id number] 06/23/2014 14:01:00 06/23/2014 23:59:59 CLS Outpatient JULIET BELTRAN DO [id number] 06/20/2014 14:18:00 06/20/2014 23:59:59 CLS Outpatient CHRIS STEVENSON MD [id number] 06/16/2014 10:12:00 06/16/2014 23:59:59 CLS Outpatient JULIET BELTRAN DO [id number] 06/14/2014 10:06:00 06/14/2014 23:59:59 CLS Outpatient CHRIS STEVENSON MD [id number] 06/07/2014 08:24:00 06/07/2014 23:59:59 CLS Outpatient CHRIS STEVENSON MD [id number] 06/02/2014 14:42:00 06/02/2014 23:59:59 CLS Outpatient JULIET BELTRAN DO [id number] 05/26/2014 10:52:00 05/26/2014 23:59:59 CLS Outpatient JULIET BELTRAN DO [id number] 03/31/2014 08:42:00 03/31/2014 23:59:59 CLS Outpatient CHRIS STEVENSON MD [id number] 03/31/2014 08:42:00 03/31/2014 23:59:59 CLS Outpatient CHRIS STEVENSON MD [id number] 03/17/2014 10:48:00 03/17/2014 23:59:59 CLS Outpatient BELTRAN DOJULIET [id number] 03/10/2014 11:24:00 03/10/2014 23:59:59 CLS Outpatient JULIET BELTRAN DO [id number] 03/03/2014 10:45:00 03/03/2014 23:59:59 CLS Outpatient JULIET BELTRAN DO [id number] 02/24/2014 11:23:00 02/24/2014 23:59:59 CLS Outpatient JULIET BELTRAN DO [id number] 02/17/2014 11:27:00 02/17/2014 23:59:59 CLS Outpatient JULIET BELTRAN DO [id number] 02/10/2014 09:04:00 02/10/2014 23:59:59 CLS Outpatient BELTRAN DO JULIET Sommers [id number] 02/03/2014 12:20:00 02/03/2014 23:59:59 CLS Outpatient RAHUL ZHU APRN [id number] 02/03/2014 08:02:00 02/03/2014 23:59:59 CLS Outpatient KELLE DIAZ DPM [id number] 01/27/2014 14:02:00 01/27/2014 23:59:59 CLS Outpatient BELTRAN DO, JULIET Tootie [id number] 01/13/2014 10:49:00 01/13/2014 23:59:59 CLS Outpatient BELTRAN DO, JULIET Tootie [id number] 01/06/2014 11:05:00 01/06/2014 23:59:59 CLS Outpatient BELTRAN DO, JULIET Sommers [id number] 12/30/2013 11:08:00 12/30/2013 23:59:59 CLS Outpatient BELTRAN DO JULIET Sommers [id number] 12/26/2013 15:24:00 12/26/2013 23:59:59 CLS Outpatient BELTRAN DO, JULIET T[place]ie [id number] 12/24/2013 09:29:00 12/24/2013 23:59:59 CLS Outpatient BELTRAN DO, JULIET T[place]ie [id number] 12/16/2013 11:10:00 12/16/2013 23:59:59 CLS Outpatient CHRIS STEVENSON MD [id number] 12/13/2013 11:15:00 12/13/2013 23:59:59 CLS Outpatient CHRIS STEVENSON MD [id number] 12/09/2013 10:59:00 12/09/2013 23:59:59 CLS Outpatient BELTRAN DO, JULIET T[place]ie [id number] 12/02/2013 10:58:00 12/02/2013 23:59:59 CLS Outpatient BELTRAN DO, JULIET Sommers [id number] 11/18/2013 10:42:00 11/18/2013 23:59:59 CLS Outpatient BELTRAN DO, JULIET T[place]ie [id number] 11/11/2013 11:16:00 11/11/2013 23:59:59 CLS Outpatient BELTRAN DO JULIET Tootie [id number] 11/07/2013 13:55:00 11/07/2013 23:59:59 CLS Outpatient BELTRAN DO, JULIET T[place]ie [id number] 10/28/2013 10:49:00 10/28/2013 23:59:59 CLS Outpatient BELTRAN DOJULIET [id number] 10/25/2013 10:06:00 10/25/2013 23:59:59 CLS Outpatient CHRIS STEVENSON MD [id number] 10/21/2013 11:00:00 10/21/2013 23:59:59 CLS Outpatient BELTRAN DOJULIET [id number] 10/17/2013 08:51:00 10/17/2013 23:59:59 CLS Outpatient BELTRAN DO, JULIET Sommers [id number] 10/14/2013 10:48:00 10/14/2013 23:59:59 CLS Outpatient BELTRAN DO, JULIET Sommers [id number] 10/07/2013 10:52:00 10/07/2013 23:59:59 CLS Outpatient BELTRAN DO, JULIET Sommers [id number] 10/03/2013 13:14:00 10/03/2013 23:59:59 CLS Outpatient BELTRAN DOJULIET [id number] 09/30/2013 10:43:00 09/30/2013 23:59:59 CLS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
--- NOTE | 2018-08-23 18:41 | Diagnostic Imaging Report ---
PATIENT HISTORY: Chest pain. TECHNIQUE: Two views of the chest. COMPARISON: 07/12/2015. CT from 03/16/2017. FINDINGS: Lung volumes are mildly large. There is mild cardiomegaly with central vascular congestion. There is thickening of the right pleura, which appears stable. There is a questionable nodular density posteriorly, maybe in the left lower lobe. No pleural effusion or pneumothorax is seen. There are calcified lymph nodes present. IMPRESSION: 1. Mild central vascular congestion with mild cardiomegaly. 2. Nodular densities seen posteriorly, this could represent focal infiltrate. Please correlate with clinical findings, and if infection is suspected, consider followup radiographs following appropriate antibiotic therapy. Otherwise, consider CT of the chest for further evaluation. Dictated by: Dictated on workstation # [id number]
--- NOTE | 2018-08-23 19:20 | NUR ---
Report given to Gaby
[2018-08-23] MEDS ORDERED: RT-ALBUINH INH (19:26)
[2018-08-23] MEDS ORDERED: RT-ALBUTEROL/IPRATROPIUM 3 ML (DUONEB) VIAL INH ONE (19:30)
[2018-08-23] MEDS ORDERED: cloNIDine 0.1 MG (CATAPRES) TAB PO ONE (19:30)
[2018-08-23] MEDS ORDERED: oxyCODONE/APAP 10/325MG (PERCOCET 10) TABLET PO ONE (20:15)
[2018-08-23] MEDS ORDERED: AZIT250T12 PO (20:15)
[2018-08-23 20:56] VITALS: BP 177/107
[2018-08-23] MEDS ORDERED: AZITHROMYCIN 250 MG TAB (ZITHROMAX) PO ONE (21:00)
== END 2018-08-23 20:57 | disposition home or self-care (01) ==
LOC: EDUNIT# 16:49 → ER 16:51
DX: J44.1 Chronic obstructive pulmonary disease with (acute) exacerbation (principal); G47.30 Sleep apnea, unspecified; I10 Essential (primary) hypertension; E78.00 Pure hypercholesterolemia, unspecified; K21.9 Gastro-esophageal reflux disease without esophagitis; K58.9 Irritable bowel syndrome, unspecified; N40.0 Benign prostatic hyperplasia without lower urinary tract symptoms; F41.9 Anxiety disorder, unspecified; F32.9 Major depressive disorder, single episode, unspecified; Z87.19 Personal history of other diseases of the digestive system; Z86.718 Personal history of other venous thrombosis and embolism; Z87.442 Personal history of urinary calculi; Z88.0 Allergy status to penicillin; Z88.1 Allergy status to other antibiotic agents; Z88.2 Allergy status to sulfonamides; Z90.89 Acquired absence of other organs; Z82.49 Family history of ischemic heart disease and other diseases of the circulatory system; Z80.0 Family history of malignant neoplasm of digestive organs
CPT/HCPCS: 36415; 36600; 71046; 80053; 81000; 82805; 83880; 84484; 85025; 86141; 93005; 94640

== ENCOUNTER → 2018-09-24 | Outpatient (CLI) | payer MEDICARE, OTHER ==
[~2018-09-24] MED LIST changes: +ARIP5TAB20; +AZIT250T12 PO; +HOLD METFORMIN - RECEIVED CONTRAST 20 ML VIAL IV SCH; +IOHEXOL 350 MG/ML 100 ML (OMNIPAQUE 350) VIAL IV ONE; +NS 100 ML (IVPB) BAG IV ONE; +RT-ALBUINH INH
[2018-09-24 10:23] LABS: CREATININE SERUM 1.21 MG/DL (0.60-1.30)
--- NOTE | 2018-09-24 12:11 | Diagnostic Imaging Report ---
PROCEDURE: CT chest with contrast only. TECHNIQUE: Multiple contiguous axial images were obtained through the chest after administration of intravenous contrast. Auto Exposure Controls were utilized during the CT exam to meet ALARA standards for radiation dose reduction. Comparison is prior chest radiograph dated 08/23/2018. FINDINGS: The lungs are clear. There is no edema or pneumonia. No suspicious nodules are seen. There is mild atelectasis in the right base. There are a few noncalcified areas of pleural thickening in both lungs suggestive of prior asbestos exposure. Heart size is normal. No pericardial effusion. Aorta is normal in caliber. No axillary, supraclavicular or mediastinal lymphadenopathy. There is no sleeve gastrectomy. There are no suspicious osseous lesions. IMPRESSION: 1. Clear lungs with resolution of the previously seen radiographic abnormality. 2. Noncalcified peripheral areas of pleural thickening likely representing prior asbestos exposure. Dictated by: Dictated on workstation # [id number]
== END ==
LOC: RAD 09:41
PROVIDERS: ATTEND Family Medicine
DX: R93.89 Abnormal findings on diagnostic imaging of other specified body structures (principal)
CPT/HCPCS: 36415; 71260; 82565; 84520

== ENCOUNTER → 2018-12-08 | Outpatient (CLI) | payer MEDICARE ==
[~2018-12-08] MED LIST changes: -HOLD METFORMIN - RECEIVED CONTRAST 20 ML VIAL IV SCH; -IOHEXOL 350 MG/ML 100 ML (OMNIPAQUE 350) VIAL IV ONE; -NS 100 ML (IVPB) BAG IV ONE; -OMEP20CA12 PO; +OMEP20CA13 PO; -TIZA2TAB3 PO; +TIZA2TAB4 PO
== END | disposition home or self-care (01) ==
LOC: PREOP 05:38
PROVIDERS: ATTEND Surgery
DX: Z01.818 Encounter for other preprocedural examination (principal)

== ENCOUNTER 2018-12-15 09:47 | Day surgery (SDC) | payer MEDICARE ==
[2018-12-15] VITALS (20 sets, daily range): BP systolic 127–171; BP diastolic 70–95
[~2018-12-15] VITALS: Ht 177.8 cm; Wt 149.8 kg
[2018-12-15] MEDS ORDERED: NS IV 500 ML 500 ML IV PRN (09:53)
[2018-12-15] MEDS ORDERED: LIDOCAINE JELLY 2% 6 ML SYRINGE MM PRN (10:00)
[2018-12-15] MEDS ORDERED: fentaNYL INJECTION 100 MCG/2 ML AMP IVP ONE (10:00)
[2018-12-15] MEDS ORDERED: HURRICAINE EXT TUBE (BENZOCAINE) XX PRN (10:00)
[2018-12-15] MEDS ORDERED: NS IV 500 ML 500 ML ONE (10:02)
--- NOTE | 2018-12-15 10:20 | Conscious Sedation/ASA ---
Conscious Sedation Pre-Proced Time 10:00 ASA Score 2 For ASA 3 and 4: Consider anesthesia and medical clearance. Also, for patients with a history of failed moderate sedation consider anesthesia. Airway Lungs Heart ASA score ASA 1: a normal healthy patient ASA 2: a patient with a mild systemic disease (mid diabetes, controlled hypertension, obesity ASA 3: a patient with a severe systemic disease that limits activity (angina, COPD, prior Myocardial infarction) ASA 4: a patient with an incapacitating disease that is a constant threat to life (CHF, renal failure) ASA 5: a moribund patient not expected to survive 24 hrs. (ruptured aneurysm) ASA 6: a declared brain- patient whose organs are being harvested. For emergent operations, add the letter E after the classification Mallampati Classification Grade 2 Sedation Plan Analgesia, Amnesia, Plan communicated to team members, Discussed options with patient/fam, Discussed risks with patient/fam The patient is an appropriate candidate to undergo the planned procedure, sedation, and anesthesia. The patient immediately re-assessed prior to indication. LISS SEGAL MD Dec 15, 2018 10:20
--- NOTE | 2018-12-15 10:21 | Progress Note-Pre Operative ---
Pre-Operative Progress Note H&P Reviewed The H&P was reviewed, patient examined and no changes noted. Date Seen by Provider: Dec 15, 2018 Time Seen by Provider: 10:00 Date H&P Reviewed: Dec 15, 2018 Time H&P Reviewed: 10:00 Pre-Operative Diagnosis: GERD, dys, screening/family hx colon ca LISS SEGAL MD Dec 15, 2018 10:21
--- NOTE | 2018-12-15 10:24 | Discharge Inst-Surgical ---
D/C Lap Instructions-PHILIPP Follow Up Activity as tolerated High Fiber Diet 25g or more per day Avoid Alcohol, Caffeine, Spicy [place] and Acid foods. Drink 64 fluid oz or more of fluids per day. Symptoms to Report: Fever over 101 degree F, Nausea/Vomiting If any problems/questions: Contact your physician or go to Emergency Room LISS SEGAL MD Dec 15, 2018 10:24
[2018-12-15] MEDS ORDERED: LIDOCAINE JELLY 2% 6 ML SYRINGE ONE ×2 (10:27→11:08)
[2018-12-15] MEDS ORDERED: fentaNYL INJECTION 100 MCG/2 ML AMP ONE ×3 (10:28→11:08)
[2018-12-15] MEDS ORDERED: MIDAZOLAM 5 MG/5 ML (VERSED) VIAL ONE ×4 (10:28→11:35)
[2018-12-15] MEDS ORDERED: HYDROcodone/APAP 5 MG/325 MG (LORTAB) TAB PO PRN (10:30)
[2018-12-15] MEDS ORDERED: morphine INJ 10 MG/ML 1ML (SYR OR VIAL) IVP PRN ×2 (10:30)
[2018-12-15] MEDS ORDERED: ONDANSETRON 4 MG/2 ML (SDV) Z0FRAN IVP PRN (10:30)
[2018-12-15] MEDS ORDERED: ACETAMINOPHEN 325 MG TABLET PO PRN (10:30)
[2018-12-15] MEDS ORDERED: HURRICAINE EXT TUBE (BENZOCAINE) ONE (11:08)
[2018-12-15] MEDS: MIDAZOLAM 5 MG/5 ML (VERSED) VIAL IV PRN ×6 (11:12→11:35)
[2018-12-15] MEDS ORDERED: MIDAZOLAM 2 MG/2 ML (VERSED) VIAL ONE ×2 (11:17→11:18)
[2018-12-15] MEDS: MIDAZOLAM 10 MG/2 ML (VERSED) VIAL IVP PRN ×2 (11:40→11:45)
--- NOTE | 2018-12-15 12:07 | Progress Note-Post Operative ---
Post-Operative Progess Note Surgeon (s)/Enrollment Coordinator (s) Surgeon LISS SEGAL MD Enrollment Coordinator: none Pre-Operative Diagnosis GERD, dys, screening/family hx colon ca Post-Operative Diagnosis reflux esophagitis(stage 2), mild distal esoph stricture, intact wrap, moderate diffuse gastritis. mild chronic stage 2 ext and int hemorrhoids, moderate sigmoid and descending colon diverticulosis. Procedure & Operative Findings Date of Procedure 12/15/18 Procedure Performed/Findings EGD with bx and balloon dilatation. Colonoscopy. Anesthesia Type cs Estimated Blood Loss Estimated blood loss (mL): minimal Specimens/Packing Specimens Removed ge jxn, antrum LISS SEGAL MD Dec 15, 2018 12:07
--- NOTE | 2018-12-15 17:37 | OPERATIVE REPORT ---
DATE OF SERVICE: 12/15/2018 ATTENDING PRIMARY CARE PHYSICIAN: Crystal Burton MD PREOPERATIVE DIAGNOSES: Dysphagia, gastroesophageal reflux disease, screening colonoscopy with family history of colon cancer. POSTOPERATIVE DIAGNOSES: Reflux esophagitis stage II, distal esophageal stricture, intact previous wrap, no recurrent hiatal hernia, moderate severity gastritis, which was diffuse. No distal obstructions. Mild chronic stage II external and internal hemorrhoids, moderate sigmoid and descending colonic diverticulosis. PROCEDURE: EGD with biopsy and balloon dilatation, colonoscopy. SURGEON: Liss Segal MD ANESTHESIA: Conscious sedation. ESTIMATED BLOOD LOSS: Minimal. FINDINGS: Reflux esophagitis stage II, distal esophageal stricture, intact previous wrap, no recurrent hiatal hernia, moderate severity gastritis, which was diffuse. No distal obstructions. Mild chronic stage II external and internal hemorrhoids, moderate sigmoid and descending colonic diverticulosis. DISPOSITION: The patient tolerated the procedure well. INDICATIONS: The patient is a 67-year-old male, who has had to three month history of dysphagia as well as nausea. He reports that this has progressively worsened. He reports that he feels the substernal pressure sensation as well as nausea and tries to throw up. However, he cannot due to a previous Mari fundoplication. He also states having a laparoscopic gastric sleeve resection in 2013. He also does have a history of colon polyps. His last colonoscopy was five years ago and he had two tubular adenomas and hyperplastic polyp identified. He also does have a family history of colon cancer with his sister having the disease. DESCRIPTION OF PROCEDURE: The patient was brought to the endoscopy suite, laid in the left lateral decubitus position with head elevated. After adequate IV pain and sedative medications and conscious sedation anesthesia, the mouthpiece was applied. The endoscope was then placed in the mouth, visualizing the pharynx and hypopharyngeal region. Vocal cords, epiglottis and vallecula identified and appeared to be normal. The endoscope was then gently intubated. Esophageal opening and esophagus was insufflated. The endoscope was then advanced through the first, second and third portion of esophagus. At the level of GE junction, a reflux esophagitis stage II identified. There was also a distal esophageal stricture. A biopsy was taken of the GE junction with forceps with visualization of good hemostasis. The endoscope was then advanced into the stomach and endoscope retroflexed, visualizing intact previous hiatal hernia repair as well as a Mari fundoplication. The patient also does appear to be status post gastric sleeve resection; however, there does appear to be dilatation of the stomach pouch. There was moderate severity gastritis, which was diffuse throughout the stomach. No formal ulcerations, polyps, nor any neoplasms. A biopsy was taken of the antrum to rule out H. pylori with visualization of good hemostasis. The endoscope was then advanced to the pylorus and first and second portion of the duodenum, which appeared normal with no distal obstructions. We then proceeded with balloon dilatation of the distal esophageal stricture. The balloon was placed in the stomach and pulled back to the area of the stricture and first insufflated with 2 atmospheres of pressure with minimal resistance. We then proceeded to 4 atmospheres of pressure with mild to moderate resistance and left this in place for approximately 60 seconds. The luminal diameter was approximately 19 mm. This was left in place for 60 seconds and the balloon was desufflated and removed. Good hemostasis was observed as well as no mucosal tears. The endoscope was then slowly withdrawn while taking a second look and suctioning of residual air with no additional findings. Under the same anesthesia, we then proceeded with the colonoscopy portion of the procedure. A digital rectal examination was performed, which revealed mild chronic stage II external and internal hemorrhoids, not actively edematous or inflamed and no bleeding. Normal sphincter tone was felt and there were no palpable masses. The endoscope was then intubated into the anus and rectum gently insufflated. The endoscope was then advanced to the valves of Mora of the rectum with no polyps or any neoplasms identified. We then proceeded through the sigmoid colon where a moderate sigmoid diverticulosis identified. This diverticulosis also extended into the descending colon. The endoscope was then advanced to the transverse and ascending colon to the cecum. These segments were normal. There were no polyps or any neoplasms identified throughout the colon or rectum. The endoscope was then slowly withdrawn while taking a second look and suctioning of residual air with no additional findings. The patient tolerated the procedure well. We will recommend the necessary lifestyle and diet accommodation including small and more frequent meals, avoidance of eating at night as well as head elevation while lying supine. He also needs to proceed with some form of regularly scheduled diet and exercise regimen for weight maintenance. 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 We will also recommend a high fiber diet with 30 grams of fiber daily as well as significant amounts of water to promote soft stools on a daily basis and to prevent any further propagation of diverticulosis as well as diverticulitis. We will recommend a followup colonoscopy in 5 years due to his first degree family history of colon cancer. Job ID: [id number] DocumentID: [id number] Dictated Date: 12/15/2018 12:02:28 Welder/Fitter Date: 12/15/2018 17:36:09 Dictated By: LISS SEGAL MD
== END 2018-12-15 12:55 | disposition home or self-care (01) ==
LOC: ENDO 09:47
PROVIDERS: ATTEND Surgery
DX: Z12.11 Encounter for screening for malignant neoplasm of colon (principal); K29.50 Unspecified chronic gastritis without bleeding; K21.0 Gastro-esophageal reflux disease with esophagitis; K22.2 Esophageal obstruction; K64.1 Second degree hemorrhoids; K64.8 Other hemorrhoids; K57.30 Diverticulosis of large intestine without perforation or abscess without bleeding; E66.01 Morbid (severe) obesity due to excess calories; Z86.010 Personal history of colon polyps; Z88.0 Allergy status to penicillin; Z88.8 Allergy status to other drugs, medicaments and biological substances; Z88.1 Allergy status to other antibiotic agents; Z98.84 Bariatric surgery status; Z91.012 Allergy to eggs; Z90.49 Acquired absence of other specified parts of digestive tract; Z68.42 Body mass index [BMI] 45.0-49.9, adult; Z90.89 Acquired absence of other organs; Z96.651 Presence of right artificial knee joint; Z79.899 Other long term (current) drug therapy; Z80.0 Family history of malignant neoplasm of digestive organs; Z80.1 Family history of malignant neoplasm of trachea, bronchus and lung; Z82.49 Family history of ischemic heart disease and other diseases of the circulatory system
CPT/HCPCS: 43239; 43249; G0105

== ENCOUNTER 2019-02-15 12:44 | Outpatient (RCR) | payer OTHER ==
[~2019-02-15 12:44] MED LIST changes: -ACET-2469 PO; +ACET-2715 PO; -ARIP5TAB20; +ARIP5TAB57; +OMEP-280 PO; -OMEP20CA13 PO; -TAMS0.4C98 PO; +TMSL.4C PO
== END 2019-03-24 | disposition home or self-care (01) ==
PROVIDERS: ATTEND Nurse Practitioner
DX: Z47.89 Encounter for other orthopedic aftercare (principal); Z98.890 Other specified postprocedural states

== ENCOUNTER 2019-07-20 09:24 | Emergency (ER) | payer MEDICARE, OTHER ==
[~2019-07-20] VITALS: Ht 175 cm; Wt 143.0 kg
[~2019-07-20 09:24] MED LIST changes: -OMEP-280 PO; +OMEP20CA18 PO; -TIZA2TAB4 PO; +TIZA2TAB7 PO
[2019-07-20] MEDS ORDERED: morphine INJ 10 MG/ML 1ML (SYR OR VIAL) IVP STA (09:53)
[2019-07-20 10:18] LABS: BILIRUBIN,URINE NEGATIVE (NEGATIVE); CLARITY,URINE CLEAR; COLOR,URINE YELLOW; GLUCOSE, URINE (UA) NEGATIVE (NEGATIVE); KETONES,URINE NEGATIVE (NEGATIVE); LEUKOCYTE ESTERASE ,URINE NEGATIVE (NEGATIVE); NITRITE,URINE NEGATIVE (NEGATIVE); PH,URINE 5.5 (5-9); PROTEIN,URINE NEGATIVE (NEGATIVE)
[2019-07-20 10:24] LABS: BACTERIA,URINE NEGATIVE /HPF; SQUAMOUS EPITHELIAL CELL,UR RARE /HPF; WBC,URINE RARE /HPF
--- NOTE | 2019-07-20 11:07 | Diagnostic Imaging Report ---
PROCEDURE: CT urinary tract, rule out kidney stone. TECHNIQUE: Multiple contiguous axial images were obtained through the abdomen and pelvis without the use of intravenous contrast. Auto Exposure Controls were utilized during the CT exam to meet ALARA standards for radiation dose reduction. INDICATION: Fall, history of kidney stones, left lower back pain. COMPARISON: 11/02/2016. FINDINGS: The lung bases are clear. The heart is normal in size. The liver and spleen demonstrate no focal lesions. Cholecystectomy clips are noted. The pancreas is unremarkable. The adrenal glands appear normal. The kidneys are mildly atrophic bilaterally. There is a simple-appearing cyst in the right kidney measuring 6 cm in size. There is a simple-appearing cyst in the left kidney measuring 4 cm in size. There are nonobstructing calculi in the kidneys bilaterally, the largest on the left measures 12 mm in diameter. There is no hydronephrosis or hydroureter bilaterally. No obstructing calculi are seen. The bladder is decompressed and no calculi are seen in the bladder. The bowel loops are nondistended without obstruction. Ventral hernia repair mesh is noted. Postsurgical changes in the stomach are seen. There is diverticulosis of the descending and sigmoid colon without diverticulitis seen. No free fluid or free air is seen. No acute fracture is seen in the lumbar spine or pelvis on this [id number]. There is a compression deformity of L1 which appears chronic and stable since August 2018. There is mild left convex curvature of the lumbar spine with severe degenerative change at L2-L3 and L3-L4. There does appear to be some ankylosis of the sacroiliac joints bilaterally. IMPRESSION: 1. Nonobstructing calculi in the kidneys bilaterally. No hydronephrosis or obstructing calculi are seen. 2. Chronic findings in the lumbar spine, as described above. There does appear to be ankylosis at the sacroiliac joints. Dictated by: Dictated on workstation # [id number]
[2019-07-20] MEDS ORDERED: oxyCODONE/APAP 5/325MG (PERCOCET 5) TABLET PO ONE (11:45)
[2019-07-20] MEDS ORDERED: ORPHENADRINE 60 MG/2 ML (NORFLEX) AMP IV ONE (11:45)
--- NOTE | 2019-07-20 11:49 | ED Back Pain ---
General Chief Complaint: Trauma-Non Activation Stated Complaint: FALL Nursing Triage Note: L hip pain Nursing Sepsis Screen: No Definite Risk Source of Information: Patient Exam Limitations: No Limitations History of Present Illness Date Seen by Provider: July 20, 2019 Time Seen by Provider: 09:25 Initial Comments This 68-year-old gentleman presents to the emergency room with complaints of severe left lower back pain. He rates it as 9/10. He has chronic pain but it is worsened today. He has not yet taken any of his usual oxycodone 10 mg ta blets. He is particularly concerned because he had a fall at a convenience store about 3 weeks ago, and he thinks his pain today may be related to an injury from the fall. He is able to bear weight today but it is painful. 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 Allergies and Home Medications Allergies Coded Allergies: Penicillins (Verified Allergy, Mild, 12/15/18) ampicillin (Verified Allergy, Mild, RASH, 12/15/18) sulfacetamide (Verified Allergy, Mild, "MADE ME FEEL BAD", 03/19/15) egg (Verified Allergy, Unknown, 12/15/18) FROM UNCODED ALLERGIES Home Medications Allopurinol 100 Mg Tab, 100 MG PO DAILY, (Reported) Azithromycin 250 Mg Tablet, 250 MG PO UD TAKE 2 TABLETS ON DAY ONE THEN TAKE 1 TABLET DAILY FOR FOUR MORE DAYS Prescribed by: KRISTINA RICHARDS on 08/23/182014 Cholecalciferol (Vitamin D3) 5,000 Unit Tablet, 5,000 UNIT PO DAILY, (Reported) Clonazepam 0.5 Mg Tablet, 0.5 MG PO HS, (Reported) NEEDED FOR ANXIETY Diclofenac Sodium 75 Mg Tablet.dr, 75 MG PO BID, (Reported) Garlic 2,000 Mg Capsule, 2,000 MG PO DAILY, (Reported) Mometasone Furoate 17 Gm [place], 1 SPRAY NSEACH HS, (Reported) Multivitamin 1 Each Tablet, 2 EACH PO BID, (Reported) Omeprazole 20 Mg Capsule.dr, 20 MG PO BID, (Reported) Oxycodone Hcl/Acetaminophen 1 Each Tablet, 1 EACH PO Q6HR PRN PRN for PAIN, (Reported) Tamsulosin HCl 0.4 Mg Cap.er.24h, 0.4 MG PO DAILY, (Reported) Trazodone HCl 150 Mg Tablet, 150 MG PO HS, (Reported) Patient Home Medication List Home Medication List Reviewed: Yes Review of Systems Constitutional: no symptoms reported EENTM: no symptoms reported Respiratory: no symptoms reported Cardiovascular: no symptoms reported Gastrointestinal: no symptoms reported Genitourinary: no symptoms reported Musculoskeletal: see HPI Skin: no symptoms reported Psychiatric/Neurological: No Symptoms Reported Past Haljdot-Xflres-Xzlieq Hx Past Med/Social Hx: Reviewed Nursing Past Med/Soc Hx Patient Social History Alcohol Use: Denies Use Recreational Drug Use: No 2nd Hand Smoke Exposure: No Recent Foreign Travel: No Contact w/Someone Who Travel: No Recent Infectious Disease Expo: No Recent Hopitalizations: No Immunizations Up To Date Tetanus Booster (TDap): Less than 5yrs Date of Pneumonia Vaccine: Mar 19, 2013 Seasonal Allergies Seasonal Allergies: Yes Past Medical History Surgeries: Yes (HERNIA REPAIR, SINUS, FOOT, BARIATRIC, KNEE SCOPE, CYSTO) Abdominal, Adenoidectomy, Bladder Surgery, Gallbladder, Orthopedic, Renal, Tonsillectomy Respiratory: Yes (USES CPAP) Sleep Apnea Cardiac: Yes (2011-FROM FALL, TOOK COUMADIN FOR 6MONTHS) Deep Vein Thrombosis, High Cholesterol, Hypertension Neurological: No Reproductive Disorders: No Sexually Transmitted Disease: No HIV/AIDS: No Benign Prostatic Hyperpl, Bladder Infection, Kidney Stones Gastrointestinal: Yes (HAS HAD GASTRIC SLEEVE) Gastroesophageal Reflux, Chronic Constipation, Diverticulosis, Polyps, Hiatal Hernia, Irritable Bowel Musculoskeletal: Yes (ARTHRITIS IN KNEES AND BACK) Arthritis, Chronic Back Pain, Gout Endocrine: No Loss of Vision: Bilateral Hearing Impairment: Denies Cancer: No Psychosocial: Yes Sleep Difficulties, Anxiety, Depression Integumentary: Yes (RED PATCHES ON FACE) Blood Disorders: No Adverse Reaction/Blood Tranf: No Family Medical History Reviewed Nursing Family Hx Arthritis 19 MOTHER Cardiovascular disease 19 MOTHER Colon cancer 19 FATHER 19 MOTHER G8 SISTER Dementia 19 MOTHER Hypertension 19 MOTHER G8 BROTHER Respiratory disorder 19 FATHER (lung ca) Thyroid disease 19 MOTHER No Pertinent Family Hx Physical Exam Vital Signs Vital Signs - First Documented 07/20/19 09:25 Temp 37.0 Pulse 62 Resp 18 B/P (MAP) 151/91 (111) Pulse Ox 95 O2 Delivery Room Air Capillary Refill : Less Than 3 Seconds Height, Weight, BMI Height: 5'10.00" Weight: 358lbs. 6.0oz. 162.229653za; 46.00 BMI Method:Stated General Appearance: No Apparent Distress, WD/WN HEENT: PERRL/EOMI, Normal ENT Inspection Neck: Normal Inspection Cardiovascular: Regular Rate, Rhythm, No Murmur, Normal Peripheral Pulses Respiratory: Lungs Clear, Normal Breath Sounds, No Accessory Muscle Use Gastrointestinal: Non Tender, Soft Back: Normal Inspection, Other (tenderness in the left lower lumbar region) Extremity: Normal Inspection, Non Tender, Other (no significant pain with rotation of the hips) Neurologic/Psychiatric: Alert, Oriented x3, No Motor/Sensory Deficits, Normal Mood/Affect, supervisor fine grading II-XII Norm as Tested Skin: Normal Color, Warm/Dry Progress/Results/Core Measures Results/Orders Lab Results Laboratory Tests Test 07/20/19 10:12 Range/Units Urine Color YELLOW Urine Clarity CLEAR Urine pH 5.5 5-9 Urine Specific [place] 1.020 1.016-1.022 Urine Protein NEGATIVE NEGATIVE Urine Glucose (UA) NEGATIVE NEGATIVE Urine Ketones NEGATIVE NEGATIVE Urine Nitrite NEGATIVE NEGATIVE Urine Bilirubin NEGATIVE NEGATIVE Urine Urobilinogen 0.2 < = 1.0 MG/DL Urine Leukocyte Esterase NEGATIVE NEGATIVE Urine RBC (Auto) NEGATIVE NEGATIVE Urine RBC NONE /HPF Urine WBC RARE /HPF Urine Squamous Epithelial Cells RARE /HPF Urine Crystals NONE /LPF Urine Bacteria NEGATIVE /HPF Urine Casts NONE /LPF Urine Mucus NEGATIVE /LPF Urine Culture Indicated NO My Orders Orders - ADALID ARRIETA MD Ct Abd/Pelvis Wo(Kidney Stone) (07/20/19 09:32) Ua Culture If Indicated (07/20/19 09:32) Ed Iv/Invasive Line Start (07/20/19 09:53) Morphine Injection (Morphine Injection (07/20/19 09:53) Orphenadrine Injection (Norflex Injectio (07/20/19 11:45) Oxycodone/Apap 5/325mg Tablet (Percocet (07/20/19 11:45) Medications Given in ED Current Medications Medications Dose Ordered Sig/Analilia Route Start Time Stop Time Status Last Admin Dose Admin Orphenadrine Citrate 60 mg ONCE ONCE IV 07/20/19 11:45 07/20/19 11:46 DC 07/20/19 11:55 60 MG Oxycodone/ Acetaminophen 2 tab ONCE ONCE PO 07/20/19 11:45 07/20/19 11:46 DC 07/20/19 11:55 2 TAB Vital Signs/I&O 07/20/19 09:25 Temp 37.0 Pulse 62 Resp 18 B/P (MAP) 151/91 (111) Pulse Ox 95 O2 Delivery Room Air Blood Pressure Mean: 111 Progress Progress Note : Progress Note Patient received morphine by IV route for pain. This was followed later by Pe rcjulio cesar and Abdoulaye. Patient does take oxycodone and tizanidine home. CT to evaluate for ureteral stone and pathology to the lumbar spine or pelvis was obtained. No acute findings were appreciated. Patient was encouraged to work with his paint booth operator. Diagnostic Imaging Diagonstic Imaging: CT Plain Films/CT/US/NM/MRI: abdomen, pelvis Comments CT abdomen and pelvis without contrast reviewed by me and report reviewed. See report below: NAME: [facility] REC#: [id number] PT STATUS: REG ER : 1950 PHYSICIAN: ADALID ARRIETA MD ADMIT DATE: 07/20/19/ER Draft Date of Exam:07/20/19 CT ABD/PELVIS WO(KIDNEY STONE) PROCEDURE: CT urinary tract, rule out kidney stone. TECHNIQUE: Multiple contiguous axial images were obtained through the abdomen and pelvis without the use of intravenous contrast. Auto Exposure Controls were utilized during the CT exam to meet ALARA standards for radiation dose reduction. INDICATION: Fall, history of kidney stones, left lower back pain. COMPARISON: 11/02/2016. FINDINGS: The lung bases are clear. The heart is normal in size. The liver and spleen demonstrate no focal lesions. Cholecystectomy clips are noted. The pancreas is unremarkable. The adrenal glands appear normal. The kidneys are mildly atrophic bilaterally. There is a simple-appearing cyst in the right kidney measuring 6 cm in size. There is a simple-appearing cyst in the left kidney measuring 4 cm in size. There are nonobstructing calculi in the kidneys bilaterally, the largest on the left measures 12 mm in diameter. There is no hydronephrosis or hydroureter bilaterally. No obstructing calculi are seen. The bladder is decompressed and no calculi are seen in the bladder. The bowel loops are nondistended without obstruction. Ventral hernia repair mesh is noted. Postsurgical changes in the stomach are seen. There is diverticulosis of the descending and sigmoid colon without diverticulitis seen. No free fluid or free air is seen. No acute fracture is seen in the lumbar spine or pelvis on this [id number]. There is a compression deformity of L1 which appears chronic and stable since August 2018. There is mild left convex curvature of the lumbar spine with severe degenerative change at L2-L3 and L3-L4. There does appear to be some ankylosis of the sacroiliac joints bilaterally. IMPRESSION: 1. Nonobstructing calculi in the kidneys bilaterally. No hydronephrosis or obstructing calculi are seen. 2. Chronic findings in the lumbar spine, as described above. There does appear to be ankylosis at the sacroiliac joints. Dictated on workstation # [id number] Dict: 07/20/19 1050 Trans: 07/20/19 1106 [id number] Interpreted by: ЕЛЕНА CARLSON MD Departure Impression Primary Impression: Low back pain Qualified Codes: M54.5 - Low back pain; G89.29 - Other chronic pain Disposition: 01 HOME, SELF-CARE Condition: Improved Departure-Patient Inst. Decision time for Depature: 11:48 Referrals: CHRIS STEVENSON MD (PCP/Family) Primary Care Physician Patient Instructions: Low Back Pain (DC) Add. Discharge Instructions: Continue to work with your paint booth operator and your primary care provider to regulate your pain and workup causes. Work toward weight loss to reduce strain on your back. Return to care. Worsening symptoms, especially if you develop bowel or bladder control problems or true weakness in your legs. All discharge instructions reviewed with patient and/or family. Voiced understanding. ADALID ARRIETA MD July 20, 2019 11:49
[2019-07-20 12:25] VITALS: BP 153/86
== END 2019-07-20 12:45 | disposition home or self-care (01) ==
LOC: EDUNIT# 09:24 → ER 09:25
DX: M54.5 Low back pain (principal); F41.9 Anxiety disorder, unspecified; F32.9 Major depressive disorder, single episode, unspecified; K21.9 Gastro-esophageal reflux disease without esophagitis; G47.30 Sleep apnea, unspecified; M10.9 Gout, unspecified; Z88.0 Allergy status to penicillin; Z88.2 Allergy status to sulfonamides; Z79.51 Long term (current) use of inhaled steroids; Z82.49 Family history of ischemic heart disease and other diseases of the circulatory system; W19.XXXA Unspecified fall, initial encounter; Y92.512 Supermarket, store or market as the place of occurrence of the external cause
CPT/HCPCS: 74176; 81000

== ENCOUNTER 2020-05-10 12:51 | Outpatient (RCR) | payer OTHER ==
[~2020-05-10 12:51] MED LIST changes: -ACET-2715 PO; +ACET-3075 PO; -CIPR500T4 PO; +CIPR500T5 PO; -HYDR-3876 PO; +HYDR-3920 PO; +TIZA-169 PO; -TIZA2TAB7 PO
== END 2020-05-10 14:17 | disposition home or self-care (01) ==
PROVIDERS: ATTEND Nurse Practitioner
DX: R53.1 Weakness (principal); M54.2 Cervicalgia; R26.9 Unspecified abnormalities of gait and mobility; M54.5 Low back pain; W19.XXXA Unspecified fall, initial encounter; Z96.651 Presence of right artificial knee joint; Z98.890 Other specified postprocedural states

== ENCOUNTER 2021-01-03 21:44 | Inpatient (IN) | payer OTHER, MEDICARE ==
[~2021-01-03] VITALS: Ht 175.3 cm; Wt 166.8 kg
--- NOTE | 2021-01-03 22:18 | ED General ---
General Stated Complaint: LOW O2 Source of Information: Patient Exam Limitations: No Limitations History of Present Illness Date Seen by Provider: Jan 03, 2021 Time Seen by Provider: 22:05 Initial Comments Patient is a 70-year-old male who presents to the emergency department today with a chief complaint of worsening shortness of breath and cough. Patient states he has not been around anybody sick recently he just got his Covid vaccinations at the end of October and beginning of November. He denies fevers or chills. The cough is not productive. It is worse with exertion. He denies chest pain associated with his shortness of breath. He has no nausea or abdominal pain. No problems with bowel or bladder. He states he occasionally has diarrhea. He has chronic swelling in his lower extremities and is supposed to take a "water pill" but does not take it because he already urinates "enough" he says. Patient has never seen a precision honer before has no known history of coronary artery disease. He states he is not diabetic. He tells me that he did have a blood clot "years ago" in his right leg after a reported injury. He is not chronically anticoagulated at this point. He denies pain in his lower extremities. Patient does not wear oxygen at night. He does wear CPAP at night. On arrival into the room the patient's room air oxygen saturations are in the mid 80s. He does come up to 90 to 91% on 2 L per nasal cannula. He does demonstrate mild increased work of breathing as he is a little bit labored in his breathing. He sounds a little dyspneic in conversation. No significant distress is noted. All other review of systems reviewed and negative except as stated. Timing/Duration: 1 Week (A little over a week) Severity: Moderate Associated Systoms: Malaise, Shortness of Air Allergies and Home Medications Allergies Coded Allergies: Penicillins (Verified Allergy, Mild, 12/15/18) ampicillin (Verified Allergy, Mild, RASH, 12/15/18) sulfacetamide (Verified Allergy, Mild, "MADE ME FEEL BAD", 03/19/15) egg (Verified Allergy, Unknown, 12/15/18) FROM UNCODED ALLERGIES Patient Home Medication List Home Medication List Reviewed: Yes Allopurinol (Zyloprim) 100 Mg Tab, 100 MG PO DAILY, (Reported) Entered as Reported by: KEMAL BROWN on 01/16/12 1435 Aripiprazole (Aripiprazole) 5 Mg Tablet, (Reported) Entered as Reported by: DARLEEN RIVERA on 08/23/18 174 Azithromycin (Azithromycin) 250 Mg Tablet, 250 MG PO UD Prescribed by: KRISTINA RICHARDS on 08/23/182014 Cholecalciferol (Vitamin D3) (Vitamin D3) 5,000 Unit Tablet, 5,000 UNIT PO DAILY, (Reported) Entered as Reported by: MARCOS VALE on 04/16/15 1524 Clonazepam (Clonazepam) 0.5 Mg Tablet, 0.5 MG PO HS, (Reported) Entered as Reported by: CARLOS PINK on 02/15/11 1520 Diclofenac Sodium (Diclofenac Sodium) 75 Mg Tablet.dr, 75 MG PO BID, (Reported) Entered as Reported by: MARCOS VALE on 07/12/15 1015 Garlic (Garlic) 2,000 Mg Capsule, 2,000 MG PO DAILY, (Reported) Entered as Reported by: MARCOS VALE on 04/16/15 1524 Mometasone Furoate (Nasonex) 17 Gm [place], 1 SPRAY NSEACH HS, (Reported) Entered as Reported by: KEMAL BROWN on 01/16/12 1435 Multivitamin (Multi Vitamin Daily) 1 Each Tablet, 2 EACH PO BID, (Reported) Entered as Reported by: DONNA JONES on 12/23/13 0819 Omeprazole (Omeprazole) 20 Mg Capsule.dr, 20 MG PO BID, (Reported) Entered as Reported by: PRADEEP JAMIL on 01/11/15 1331 Oxycodone Hcl/Acetaminophen (Endocet 10-325 Mg Tablet) 1 Each Tablet, 1 EACH PO Q6HR PRN PRN for PAIN, (Reported) Entered as Reported by: DONNA JONES on 12/23/13 0819 Tamsulosin HCl (Tamsulosin HCl) 0.4 Mg Cap.er.24h, 0.4 MG PO DAILY, (Reported) Entered as Reported by: MARCOS VALE on 07/12/15 1015 Trazodone HCl (Trazodone HCl) 150 Mg Tablet, 150 MG PO HS, (Reported) Entered as Reported by: CARMELA FORTE on 07/18/15 2300 Review of Systems Review of Systems Constitutional: see HPI EENTM: no symptoms reported Respiratory: cough, dyspnea on exertion, orthopnea, short of breath Cardiovascular: no symptoms reported Gastrointestinal: no symptoms reported Genitourinary: no symptoms reported Musculoskeletal: other (Leg swelling) Skin: no symptoms reported Psychiatric/Neurological: No Symptoms Reported All Other Systems Reviewed Negative Unless Noted: Yes Past Mcepksy-Ijhxae-Qfweco Hx Immunizations Up To Date Tetanus Booster (TDap): Less than 5yrs Seasonal Allergies Seasonal Allergies: Yes Past Medical History Surgeries: Yes (HERNIA REPAIR, SINUS, FOOT, BARIATRIC, KNEE SCOPE, CYSTO) Abdominal, Adenoidectomy, Bladder Surgery, Gallbladder, Orthopedic, Renal, Tonsillectomy Respiratory: Yes (USES CPAP) Sleep Apnea Cardiac: Yes (2011-FROM FALL, TOOK COUMADIN FOR 6MONTHS) Deep Vein Thrombosis, High Cholesterol, Hypertension Neurological: No Reproductive Disorders: No Sexually Transmitted Disease: No HIV/AIDS: No Benign Prostatic Hyperpl, Bladder Infection, Kidney Stones Gastrointestinal: Yes (HAS HAD GASTRIC SLEEVE) Gastroesophageal Reflux, Chronic Constipation, Diverticulosis, Polyps, Hiatal Hernia, Irritable Bowel Musculoskeletal: Yes (ARTHRITIS IN KNEES AND BACK) Arthritis, Chronic Back Pain, Gout Endocrine: No Loss of Vision: Bilateral Hearing Impairment: Denies Cancer: No Psychosocial: Yes Sleep Difficulties, Anxiety, Depression Integumentary: Yes (RED PATCHES ON FACE) Blood Disorders: No Adverse Reaction/Blood Tranf: No Family Medical History Arthritis 19 MOTHER Cardiovascular disease 19 MOTHER Colon cancer 19 FATHER 19 MOTHER G8 SISTER Dementia 19 MOTHER Hypertension 19 MOTHER G8 BROTHER Respiratory disorder 19 FATHER (lung ca) Thyroid disease 19 MOTHER No Pertinent Family Hx Physical Exam Vital Signs Vital Signs - First Documented 01/03/21 22:25 Pulse Ox 91 O2 Delivery Nasal Cannula O2 Flow Rate 2.00 Capillary Refill : Height, Weight, BMI Height: 5'10.00" Weight: 358lbs. 6.0oz. 162.623808xm; 46.00 BMI Method:Stated General Appearance: No Apparent Distress, WD/WN, Obese Eyes: Bilateral Eye Normal Inspection, Bilateral Eye PERRL, Bilateral Eye EOMI HEENT: PERRL/EOMI Neck: Normal Inspection Respiratory: Lungs Clear, Normal Breath Sounds, Other (Slightly labored breathing, dyspneic in conversation) Cardiovascular: Regular Rate, Rhythm, Normal Peripheral Pulses Gastrointestinal: Normal Bowel Sounds, Non Tender, Soft, Other (Morbid obesity) Extremity: Normal Capillary Refill, Normal Range of Motion, Pedal Edema (3+ pitting edema bilateral lower extremities, unable to elicit calf tenderness in either leg) Neurologic/Psychiatric: Alert, Oriented x3, No Motor/Sensory Deficits, Normal Mood/Affect, disability insurance hearing officer II-XII Norm as Tested Skin: Normal Color, Warm/Dry Focused Exam Lactate Level 01/03/21 22:25: Lactic Acid Level 1.48 Lactic Acid Level Laboratory Tests Test 01/03/21 22:25 Lactic Acid Level 1.48 MMOL/L (0.50-2.00) Progress/Results/Core Measures Suspected Sepsis SIRS Temperature: Pulse: Respiratory Rate: Laboratory Tests 01/03/21 22:25: White Blood Count 7.5 Blood Pressure / Mean: 01/03/21 22:25: Lactic Acid Level 1.48 Laboratory Tests 01/03/21 22:25: Creatinine 1.74H, INR Comment 1.0, Platelet Count 223, Total Bilirubin 0.5 Results/Orders Lab Results Laboratory Tests Test 01/03/21 22:25 01/03/21 22:26 Range/Units White Blood Count 7.5 4.3-11.0 10^3/uL Red Blood Count 4.66 4.30-5.52 10^6/uL Hemoglobin 15.7 13.3-17.7 g/dL Hematocrit 47 40-54 % Mean Corpuscular Volume 100 H 80-99 fL Mean Corpuscular Hemoglobin 34 25-34 pg Mean Corpuscular Hemoglobin Concent 34 32-36 g/dL Red Cell Distribution Width 13.2 10.0-14.5 % Platelet Count 223 130-400 10^3/uL Mean Platelet Volume 10.4 9.0-12.2 fL Immature Granulocyte % (Auto) 0 % Neutrophils (%) (Auto) 72 42-75 % Lymphocytes (%) (Auto) 17 12-44 % Monocytes (%) (Auto) 9 0-12 % Eosinophils (%) (Auto) 1 0-10 % Basophils (%) (Auto) 1 0-10 % Neutrophils # (Auto) 5.4 1.8-7.8 10^3/uL Lymphocytes # (Auto) 1.3 1.0-4.0 10^3/uL Monocytes # (Auto) 0.7 0.0-1.0 10^3/uL Eosinophils # (Auto) 0.1 0.0-0.3 10^3/uL Basophils # (Auto) 0.0 0.0-0.1 10^3/uL Immature Granulocyte # (Auto) 0.0 0.0-0.1 10^3/uL Prothrombin Time 14.1 12.2-14.7 SEC INR Comment 1.0 0.8-1.4 Activated Partial Thromboplast Time 33 24-35 SEC D-Dimer 8.68 H 0.00-0.49 UG/ML Sodium Level 140 135-145 MMOL/L Potassium Level 4.2 3.6-5.0 MMOL/L Chloride Level 103 98-107 MMOL/L Carbon Dioxide Level 24 21-32 MMOL/L Anion Gap 13 5-14 MMOL/L Blood Urea Nitrogen 22 H 7-18 MG/DL Creatinine 1.74 H 0.60-1.30 MG/DL Estimat Glomerular Filtration Rate 39 BUN/Creatinine Ratio 13 Glucose Level 109 H 70-105 MG/DL Lactic Acid Level 1.48 0.50-2.00 MMOL/L Calcium Level 9.5 8.5-10.1 MG/DL Corrected Calcium 9.9 8.5-10.1 MG/DL Total Bilirubin 0.5 0.1-1.0 MG/DL Aspartate Amino Transf (AST/SGOT) 23 5-34 U/L Alanine Aminotransferase (ALT/SGPT) 6 0-55 U/L Alkaline Phosphatase 130 40-136 U/L Troponin I 0.204 H <0.028 NG/ML B-Type Natriuretic Peptide 780.3 H <100.0 PG/ML Total Protein 7.3 6.4-8.2 GM/DL Albumin 3.5 3.2-4.5 GM/DL Influenza Type A (RT-PCR) Not Detected Not Detecte Influenza Type B (RT-PCR) Not Detected Not Detecte SARS-CoV-2 RNA (RT-PCR) Not Detected Not Detecte My Orders Orders - BEVERLY RAMIREZ MD Cbc With Automated Diff (01/03/21 22:18) Comprehensive Metabolic Panel (01/03/21 22:18) Blood Culture (01/03/21 22:18) Sputum Culture (01/03/21 22:18) Urinalysis (01/03/21 22:18) Urine Culture (01/03/21 22:18) Protime With Inr (01/03/21 22:18) Partial Thromboplastin Time (01/03/21 22:18) Chest 1 View, Ap/Pa Only (01/03/21 22:18) Ed Iv/Invasive Line Start (01/03/21 22:18) Ed Iv/Invasive Line Start (01/03/21 22:18) Vital Signs Adult Sepsis Patie Q15M (01/03/21 22:18) O2 (01/03/21 22:18) Remove Rings In Anticipation O (01/03/21 22:18) Lactic Acid Analyzer (01/03/21 22:18) Covid 19 Inhouse Test (01/03/21 22:18) Fibrin Degradation Products (01/03/21 22:18) Influenza A And B By Pcr (01/03/21 22:26) Troponin I (01/03/21 23:38) BNP (01/03/21 23:38) Ekg Tracing (01/03/21 23:38) Enoxaparin Injection (Lovenox Injection) (01/04/21 00:30) Vital Signs/I&O 01/03/21 01/03/21 01/03/21 22:25 22:39 22:39 Temp 36.8 Pulse 88 Resp 20 B/P (MAP) 135/82 (99) Pulse Ox 91 91 O2 Delivery Nasal Cannula Nasal Cannula Room Air O2 Flow Rate 2.00 Capillary Refill : Progress Note : Time: 00:10 Progress Note Case discussed with Dr. Holley, recommends weight-based Lovenox, bilateral Dopplers of the lower extremities in the morning. Concern obviously with elevated D-Dimer is elevated which is nonspecific evidence of clot formation in the patient's blood vessels. About the possibility of pulmonary embolism in the setting of the patient's hypoxemia. ECG Initial ECG Impression Date: Jan 03, 2021 Initial ECG Impression Time: 23:41 Initial ECG Rate: 81 Initial ECG Rhythm: Normal Sinus Initial ECG Intervals: Normal Initial ECG Impression: Nonspecific Changes Diagnostic Imaging Diagonstic Imaging: Xray Plain Films/CT/US/NM/MRI: chest Comments Chest x-ray interpreted by me: No effusions or infiltrates are noted; patient did not take a deep inspiration. Critical Care Note Critical Care Start Time: 22:05 Stop Time: 00:15 Total Time (minutes) 40 minutes critical care time in the evaluation and management of this morbidly obese patient with hypoxemia. Time includes initial evaluation of the patient, oxygen supplementation, review and interpretation of laboratory studies, imaging and EKG. Time includes review of the medical record, ongoing monitoring for hypoxia as well as discussion with the admitting provider. Departure Communication (Admissions) Time/Spoke to Admitting Phy: 23:58 discussed with yelitza Yousif weight based Lovenox, IP admission Impression Primary Impression: Hypoxemia Additional Impressions: Elevated d-dimer Chronic kidney disease Qualified Codes: N18.9 - Chronic kidney disease, unspecified Disposition: ADMITTED INPATIENT Condition: Stable Admissions Decision to Admit Reason: Admit from ER (General) Decision to Admit/Date: Jan 04, 2021 Time/Decision to Admit Time: 00:09 Departure-Patient Inst. Referrals: QUETA PITTMAN (PCP) Primary Care Physician BEVERLY RAMIREZ MD Jan 03, 2021 22:18
[2021-01-03 22:34] LABS: BASOPHILS % (AUTO) 1 % (0-10); EOSINOPHILS # (AUTO) 0.1 10^3/uL (0.0-0.3); EOSINOPHILS % (AUTO) 1 % (0-10); HEMATOCRIT 47 % (40-54); HEMOGLOBIN 15.7 g/dL (13.3-17.7); LYMPHOCYTES # (AUTO) 1.3 10^3/uL (1.0-4.0); LYMPHOCYTES % (AUTO) 17 % (12-44); MEAN CORPUSCULAR HEMOGLOBIN 34 pg (25-34); MEAN CORPUSCULAR HGB CONC 34 g/dL (32-36); MEAN CORPUSCULAR VOLUME 100 fL (80-99); MEAN PLATELET VOLUME 10.4 fL (9.0-12.2); MONOCYTES # (AUTO) 0.7 10^3/uL (0.0-1.0); MONOCYTES % (AUTO) 9 % (0-12); NEUTROPHILS # (AUTO) 5.4 10^3/uL (1.8-7.8); NEUTROPHILS % (AUTO) 72 % (42-75); PLATELET COUNT 223 10^3/uL (130-400); WHITE BLOOD COUNT 7.5 10^3/uL (4.3-11.0)
[2021-01-03 22:58] LABS: ALBUMIN 3.5 GM/DL (3.2-4.5); BILIRUBIN,TOTAL 0.5 MG/DL (0.1-1.0); CALCIUM 9.5 MG/DL (8.5-10.1); CREATININE SERUM 1.74 MG/DL (0.60-1.30); POTASSIUM 4.2 MMOL/L (3.6-5.0); TOTAL PROTEIN 7.3 GM/DL (6.4-8.2)
[2021-01-03 23:13] LABS: FIBRIN DEGRADATION PRODUCTS 8.68 UG/ML (0.00-0.49); PROTHROMBIN TIME PATIENT 14.1 SEC (12.2-14.7)
[2021-01-04] VITALS (7 sets, daily range): BP systolic 135–185; BP diastolic 70–95
[2021-01-04] MEDS ORDERED: ENOXAPARIN 80 MG/0.8 ML (LOVENOX) SYR SC ONE (00:30)
[2021-01-04] MEDS ORDERED: RT-ALBUTEROL/IPRATROPIUM 3 ML (DUONEB) VIAL INH PRN (02:15)
--- NOTE | 2021-01-04 05:46 | Diagnostic Imaging Report ---
INDICATION: sepsis COMPARISON: 08/23/2018 FINDINGS: Single frontal view of the chest demonstrates mild cardiomegaly. Pulmonary vasculature is within normal limits. The lungs are well aerated and clear. No large pleural effusion or pneumothorax is seen. The visualized osseous structures show no acute abnormalities. IMPRESSION: 1. Mild cardiomegaly, but no evidence of failure or focal infiltrate. Dictated by: Dictated on workstation # [id number]
[2021-01-04] MEDS: CATHETER FLUSH 10 ML SYR IV SCH ×3 (06:25→20:12)
[2021-01-04] MEDS: RT-ALBUTEROL/IPRATROPIUM 3 ML (DUONEB) VIAL INH SCH ×2 (08:10→21:41)
[2021-01-04] MEDS ORDERED: oxyCODONE/APAP 10/325MG (PERCOCET 10) TABLET PO PRN (08:15)
--- NOTE | 2021-01-04 08:47 | Diagnostic Imaging Report ---
PROCEDURE: US Venous Lower Ext Carl. TECHNIQUE: Multiple real-time grayscale images were obtained over the lower extremities in various projections, bilaterally. Additional duplex Doppler and color Doppler images were also obtained. INDICATION: Lower extremity pain and edema. Elevated D-dimer. COMPARISON: 04/28/2012. FINDINGS: There is partially occlusive deep vein thrombus within the mid superficial femoral artery extending through the left popliteal artery and calf vessels of the left lower extremity. The left common femoral and profunda femoris arteries are normal with normal compressibility and color Doppler filling. The right common femoral vein, femoral vein, deep femoral vein, and popliteal vein are normal in appearance. These vessels show normal compressibility, color flow and doppler augmentation. The visualized deep calf veins demonstrate no distinct intraluminal thrombus. IMPRESSION: 1. Partially occlusive deep vein thrombus within the mid superficial femoral artery extending into the left popliteal artery and calf vessels of the left lower extremity. 2. No sonographic evidence of deep venous thrombosis in the right lower extremity. Called to Felix at 8:46 a.m. by cvb. Dictated by: Dictated on workstation # [id number]
[2021-01-04 08:54] LABS: HEMATOCRIT 50 % (40-54); HEMOGLOBIN 16.4 g/dL (13.3-17.7); MEAN CORPUSCULAR HEMOGLOBIN 33 pg (25-34); MEAN CORPUSCULAR HGB CONC 33 g/dL (32-36); MEAN CORPUSCULAR VOLUME 101 fL (80-99); MEAN PLATELET VOLUME 10.6 fL (9.0-12.2); PLATELET COUNT 200 10^3/uL (130-400)
[2021-01-04] MEDS ORDERED: PANTOPRAZOLE 20 MG TABLET (PROTONIX) PO SCH (09:00)
[2021-01-04 09:11] LABS: CALCIUM 9.4 MG/DL (8.5-10.1); CREATININE SERUM 1.46 MG/DL (0.60-1.30); POTASSIUM 4.2 MMOL/L (3.6-5.0)
--- NOTE | 2021-01-04 11:54 | Consultation-Cardiology ---
HPI-Cardiology Cardiology Consultation: Date of Consultation 01/04/21 Time Seen by a Provider: 13:10 Date of Admission 01-03-21 Attending Physician Yasir Melara MD Admitting Physician Gertrude Hope Consulting Physician Sofia Lake MD HPI: Chief Complaint: Progressive dyspnea Mr. Nathan is a 70 yr old male admitted to 419 from the ED with increasing SOB that started approx 4 days ago. He reports a feeling of heaviness, tightness in his chest. He reports episodes of dizziness. He reports chronic bilat LE swelling which he feels has been somewhat worse. He is somewhat sedentary d/t chronic knee pain which makes it difficult for him to ambulate.. He is not reporting any c/o CP at this time. No c/o palpitations, syncope, near syncope. He denies any n/v/d. No c/o fever or chills. There is a friend at the bedside, name Yasir, who states pt resides with his ex- Curtis Nathan for the last 4-5 years. He reports the patient is not a good medical language specialist. April can be reached at [phone]. Yasir reports the patient sleeps in the recliner at night and takes Melatonin and Benadryl to help him sleep. Review of Systems-Cardiology Review of Systems Constitutional: As described under HPI; No chills, No fever Eyes: No vision change Ears/Nose/Throat: No epistaxis, No recent hearing loss Respiratory: As described under HPI Cardiovascular: As described under HPI Gastrointestinal: No constipation, No diarrhea, No nausea, No vomiting Genitourinary: No dysuria, No hematuria Musculoskeletal: joint pain (knees bilat) Skin: No rash on exposed areas, No ulcerations on exposed areas Psychiatric/Neurological: anxiety, depression; No seizure, No focal weakness, No syncope Hematologic: No bleeding abnormalities All Other Systems Reviewed Negative Unless Noted: Yes [facility]-Sun[facility]-Dabfrp Hx Patient Social History 2nd Hand Smoke Exposure: No Have you traveled recently?: No Alcohol Use?: No Pt feels they are or have been: No Immunizations Up To Date Tetanus Booster (TDap): Less than 5yrs Date of Pneumonia Vaccine: Mar 19, 2013 Past Medical History PMH As described under Assessment. Family Medical History Family Medical History: He reports his mother had a-fib. No other reported family h/o CAD or stroke Family History: 19 FATHER Colon cancer Respiratory disorder (lung ca) 19 MOTHER Dementia Colon cancer Arthritis Cardiovascular disease Hypertension Thyroid disease G8 BROTHER Hypertension G8 SISTER Colon cancer Allergies and Home Medications Allergies Coded Allergies: Penicillins (Verified Allergy, Mild, 12/15/18) ampicillin (Verified Allergy, Mild, RASH, 12/15/18) sulfacetamide (Verified Allergy, Mild, "MADE ME FEEL BAD", 03/19/15) egg (Verified Allergy, Unknown, 12/15/18) FROM UNCODED ALLERGIES Patient Home Medication List Alendronate Sodium (Alendronate Sodium) 70 Mg Tablet, 70 MG PO WED, (Reported) Entered as Reported by: YENNY HARRISON on 01/04/211321 Last Action: Converted Allopurinol (Allopurinol) 100 Mg Tablet, 100 MG PO DAILY, (Reported) Entered as Reported by: YENNY HARRISON on 01/04/211321 Last Action: Continued Atorvastatin Calcium (Atorvastatin Calcium) 80 Mg Tablet, 80 MG PO HS, (Reported) Entered as Reported by: YENNY HARRISON on 01/04/211321 Last Action: Continued Cholecalciferol (Vitamin D3) (Vitamin D3) 25 Mcg Tablet, 25 MCG PO DAILY, (Rep orted) Entered as Reported by: YENNY HARRISON on 01/04/211321 Last Action: Continued Clonazepam (Clonazepam) 0.5 Mg Tablet, 0.5 MG PO HS, (Reported) Entered as Reported by: YENNY HARRISON on 01/04/211321 Last Action: Continued Cyanocobalamin (Vitamin B-12) (Vitamin B-12) 500 Mcg Tablet, 500 MCG PO DAILY, (Reported) Entered as Reported by: YENNY HARRISON on 01/04/211321 Last Action: Converted Diclofenac Sodium (Diclofenac Sodium) 100 Gm Gel..gram., 1 APPLIC TOP TID PRN for PAIN-BREAKTHROUGH, (Reported) Entered as Reported by: YENNY HARRISON on 01/04/211321 Last Action: Continued Gabapentin (Neurontin) 300 Mg Capsule, 900 MG PO TID, (Reported) Entered as Reported by: YENNY HARRISON on 01/04/211321 Last Action: Continued Garlic (Odor Free Garlic) 100 Mg Tablet, 100 MG PO BID, (Reported) Entered as Reported by: YENNY HARRISON on 01/04/211321 Last Action: Converted Levetiracetam (Levetiracetam) 750 Mg Tablet, 750 MG PO BID, (Reported) Entered as Reported by: YENNY HARRISON on 01/04/211321 Last Action: Converted Metoprolol Tartrate (Metoprolol Tartrate) 50 Mg Tablet, 50 MG PO BID, (Reported) Entered as Reported by: YENNY HARRISON on 01/04/211321 Last Action: Continued Mirabegron (Myrbetriq) 25 Mg Tab.er.24h, 25 MG PO HS, (Reported) Entered as Reported by: YENNY HARRISON on 01/04/211321 Last Action: Converted Oxycodone HCl/Acetaminophen (Oxycodone-Acetaminophen 10-325) 1 Each Tablet, 1 EA PO Q4 -6H PRN for PAIN-MODERATE (5-7), (Reported) Entered as Reported by: YENNY HARRISON on 01/04/211321 Last Action: Continued Pantoprazole Sodium (Pantoprazole Sodium) 40 Mg Tablet.dr, 40 MG PO HS, (Reported) Entered as Reported by: YENNY HARRISON on 01/04/211321 Last Action: Continued Tizanidine HCl (Tizanidine HCl) 4 Mg Tablet, 4 MG PO TID PRN for MUSCLE SPASMS, (Reported) Entered as Reported by: YENNY HARRISON on 01/04/211321 Last Action: Continued Venlafaxine HCl (Venlafaxine HCl ER) 150 Mg Cap.er.24h, 150 MG PO DAILY, (Reported) Entered as Reported by: YENNY HARRISON on 01/04/211321 Last Action: Converted Discontinued Medications Allopurinol (Zyloprim) 100 Mg Tab, 100 MG PO DAILY, (Reported) Discontinued Reason: No Longer Taking Entered as Reported by: KEMAL BROWN on 01/16/12 1435 Last Action: Discontinued Aripiprazole (Aripiprazole) 5 Mg Tablet, (Reported) Discontinued Reason: No Longer Taking Entered as Reported by: DARLEEN RIVERA on 08/23/18 1742 Last Action: Discontinued Azithromycin (Azithromycin) 250 Mg Tablet, 250 MG PO UD Discontinued Reason: No Longer Taking Prescribed by: KRISTINA RICHARDS on 08/23/182014 Last Action: Discontinued Cholecalciferol (Vitamin D3) (Vitamin D3) 5,000 Unit Tablet, 5,000 UNIT PO DAILY, (Reported) Discontinued Reason: No Longer Taking Entered as Reported by: MARCOS VALE on 04/16/15 1524 Last Action: Discontinued Clonazepam (Clonazepam) 0.5 Mg Tablet, 0.5 MG PO HS, (Reported) Discontinued Reason: No Longer Taking Entered as Reported by: CARLOS PINK on 02/15/11 1520 Last Action: Discontinued Diclofenac Sodium (Diclofenac Sodium) 75 Mg Tablet.dr, 75 MG PO BID, (Reported) Discontinued Reason: No Longer Taking Entered as Reported by: MARCOS VALE on 07/12/15 1015 Last Action: Discontinued Garlic (Garlic) 2,000 Mg Capsule, 2,000 MG PO DAILY, (Reported) Discontinued Reason: No Longer Taking Entered as Reported by: MARCOS VALE on 04/16/15 1524 Last Action: Discontinued Garlic (Garlic) 1 Each Tablet, 1 EACH PO, (Reported) Discontinued Reason: Duplicate Order Entered as Reported by: YENNY HARRISON on 01/04/21 1322 Last Action: Discontinued Mometasone Furoate (Nasonex) 17 Gm [place], 1 SPRAY [place]SEACH HS, (Reported) Discontinued Reason: No Longer Taking Entered as Reported by: KEMAL BROWN on 01/16/12 1435 Last Action: Discontinued Multivitamin (Multi Vitamin Daily) 1 Each Tablet, 2 EACH PO BID, (Reported) Discontinued Reason: No Longer Taking Entered as Reported by: DONNA JONES on 12/23/13 0819 Last Action: Discontinued Omeprazole (Omeprazole) 20 Mg Capsule.dr, 20 MG PO BID, (Reported) Discontinued Reason: No Longer Taking Entered as Reported by: PRADEEP JAMIL on 01/11/15 1331 Last Action: Discontinued Oxycodone Hcl/Acetaminophen (Endocet 10-325 Mg Tablet) 1 Each Tablet, 1 EACH PO Q6HR PRN PRN for PAIN, (Reported) Discontinued Reason: No Longer Taking Entered as Reported by: DONNA JONES on 12/23/13 0819 Last Action: Discontinued Tamsulosin HCl (Tamsulosin HCl) 0.4 Mg Cap.er.24h, 0.4 MG PO DAILY, (Reported) Discontinued Reason: No Longer Taking Entered as Reported by: MARCOS VALE on 07/12/15 1015 Last Action: Discontinued Trazodone HCl (Trazodone HCl) 150 Mg Tablet, 150 MG PO HS, (Reported) Discontinued Reason: No Longer Taking Entered as Reported by: CARMELA FORTE on 07/18/15 2300 Last Action: Discontinued Physical Exam-Cardiology Physical Exam Vital Signs/I&O 01/07/21 01/07/21 01/07/21 01/07/21 22:00 22:51 22:53 23:00 Pulse 82 74 76 Resp 18 17 12 B/P (MAP) 129/42 (71) 106/58 (74) Pulse Ox 89 92 93 92 O2 Delivery Vapotherm NIV Bilevel Vapotherm O2 Flow Rate 20.00 50.00 20.00 60.00 60.00 FiO2 50 01/07/21 01/08/21 01/08/21 01/08/21 23:20 00:00 00:00 00:05 Temp 36.2 Pulse 70 Resp 21 B/P (MAP) 98/60 (70) Pulse Ox 93 O2 Delivery NIV Bilevel NIV Bilevel NIV Bilevel O2 Flow Rate 50.00 50.00 FiO2 50 01/08/21 01/08/21 01/08/21 01/08/21 01:00 01:00 02:00 02:23 Pulse 71 71 71 Resp 14 B/P (MAP) 99/62 (74) 95/64 (77) Pulse Ox 92 93 93 O2 Delivery NIV Bilevel NIV Bilevel NIV Bilevel O2 Flow Rate 50.00 50.00 FiO2 50 01/08/21 01/08/21 01/08/21 01/08/21 02:25 03:00 03:07 03:07 Temp 36.0 Pulse 71 71 Resp 16 14 B/P (MAP) 97/59 (73) Pulse Ox 93 93 O2 Delivery NIV Bilevel NIV Bilevel O2 Flow Rate 50.00 50.00 FiO2 50 01/08/21 01/08/21 01/08/21 01/08/21 04:00 05:00 06:00 06:52 Pulse 73 79 75 Resp 16 10 B/P (MAP) 100/65 (77) 105/89 (99) 104/58 (71) Pulse Ox 96 98 98 93 O2 Delivery NIV Bilevel NIV Bilevel NIV Bilevel Vapotherm O2 Flow Rate 50.00 50.00 50.00 25.00 FiO2 70 01/08/21 01/08/21 01/08/21 01/08/21 07:00 07:00 07:25 07:27 Temp 36.8 Pulse 86 90 Resp 18 B/P (MAP) 135/93 (107) Pulse Ox 98 97 O2 Delivery NIV Bilevel NIV Bilevel O2 Flow Rate 50.00 20.00 FiO2 70 01/08/21 01/08/21 08:00 09:00 Pulse 96 92 Resp 23 35 B/P (MAP) 112/49 (70) 112/57 (75) Pulse Ox 95 94 O2 Delivery NIV Bilevel NIV Bilevel O2 Flow Rate 50.00 50.00 01/08/21 00:00 Intake Total 620 ml Output Total 475 ml Balance 145 ml Capillary Refill : Less Than 3 Seconds Constitutional: AAO x 3, well-nourished, other (morbidly obese) HEENT: PERRL, hearing is well preserved, oral hygience is good Neck: No carotid bruit; carotid pulses are 2 + bilaterally Respiratory: No accessory muscle use, No respiratory distress; chest expansion is symmetric, chest is bilaterally symmetric, lungs clear to auscultation Cardiovascular: regular rate-rhythm; No JVD; S1 and S2 Gastrointestinal: No tender; soft, round Extremities: other (mod bilat LE swelling) Neurologic/Psychiatric: grossly intact (moves all extremities) Skin: No rash on exposed areas, No ulcerations on exposed areas Data Review Labs Laboratory Tests 01/08/21 04:13: White Blood Count 6.8, Red Blood Count 4.38, Hemoglobin 14.7, Hematocrit 45, Mean Corpuscular Volume 102H, Mean Corpuscular Hemoglobin 34, Mean Corpuscular Hemoglobin Concent 33, Red Cell Distribution Width 13.2, Platelet Count 173, Mean Platelet Volume 10.6, Immature Granulocyte % (Auto) 0, Neutrophils (%) (Auto) 70, Lymphocytes (%) (Auto) 17, Monocytes (%) (Auto) 9, Eosinophils (%) (Auto) 4, Basophils (%) (Auto) 0, Neutrophils # (Auto) 4.7, Lymphocytes # (Auto) 1.2, Monocytes # (Auto) 0.6, Eosinophils # (Auto) 0.3, Basophils # (Auto) 0.0, Immature Granulocyte # (Auto) 0.0, Sodium Level 141, Potassium Level 4.4, Chloride Level 104, Carbon Dioxide Level 25, Anion Gap 12, Blood Urea Nitrogen 13, Creatinine 1.05, Estimat Glomerular Filtration Rate 70, BUN/Creatinine Ratio 12, Glucose Level 103, Calcium Level 9.1, Corrected Calcium 9.8, Phosphorus Level 3.2, Magnesium Level 1.9, Total Bilirubin 0.8, Aspartate Amino Transf (AST/SGOT) 21, Alanine Aminotransferase (ALT/SGPT) 7, Alkaline Phosphatase 96, Total Protein 6.5, Albumin 3.1L 01/08/21 05:15: Blood Gas Puncture Site RR, Blood Gas Patient Temperature 36.4, Arterial Blood pH 7.29*L, Arterial Blood Partial Pressure CO2 62H, Arterial Blood Partial Pressure O2 103H, Arterial Blood HCO3 30H, Arterial Blood Total CO2 31.6H, Arterial Blood Oxygen Saturation 98, Arterial Blood Base Excess 3.5H, Zain Test YES-POS, Blood Gas Ventilator Setting NO, Blood Gas Inspired Oxygen 50% BIPAP Microbiology 01/05/21 MRSA Screen - Final, Complete MRSA not isolated 01/03/21 Blood Culture - Preliminary, Resulted No growth Radiology NAME: ANGEL NATHAN [facility] REC#: [id number] PT STATUS: ADM IN : 1950 PHYSICIAN: BEVERLY RAMIREZ MD ADMIT DATE: 01/04/21 Signed Date of Exam:01/03/21 CHEST 1 VIEW, AP/PA ONLY INDICATION: sepsis COMPARISON: 08/23/2018 FINDINGS: Single frontal view of the chest demonstrates mild cardiomegaly. Pulmonary vasculature is within normal limits. The lungs are well aerated and clear. No large pleural effusion or pneumothorax is seen. The visualized osseous structures show no acute abnormalities. IMPRESSION: 1. Mild cardiomegaly, but no evidence of failure or focal infiltrate. Dictated by: Dictated on workstation # [id number] Dict: 01/04/21 0538 Trans: 01/04/2144 [id number] Interpreted by: MARILEE MONCADA MD Electronically signed by: MARILEE MONCADA MD 01/04/21 0844 NAME: ANGEL NATHAN [facility] REC#: [id number] PT STATUS: ADM IN : 1950 PHYSICIAN: YASIR MELARA MD ADMIT DATE: 01/04/21 Signed Date of Exam:01/04/21 US VENOUS LOWER EXT CARL PROCEDURE: US Venous Lower Ext Carl. TECHNIQUE: Multiple real-time grayscale images were obtained over the lower extremities in various projections, bilaterally. Additional duplex Doppler and color Doppler images were also obtained. INDICATION: Lower extremity pain and edema. Elevated D-dimer. COMPARISON: 04/28/2012. FINDINGS: There is partially occlusive deep vein thrombus within the mid superficial femoral artery extending through the left popliteal artery and calf vessels of the left lower extremity. The left common femoral and profunda femoris arteries are normal with normal compressibility and color Doppler filling. The right common femoral vein, femoral vein, deep femoral vein, and popliteal vein are normal in appearance. These vessels show normal compressibility, color flow and doppler augmentation. The visualized deep calf veins demonstrate no distinct intraluminal thrombus. IMPRESSION: 1. Partially occlusive deep vein thrombus within the mid superficial femoral artery extending into the left popliteal artery and calf vessels of the left lower extremity. 2. No sonographic evidence of deep venous thrombosis in the right lower extremity. Called to Felix at 8:46 a.m. by cvb. Dictated by: Dictated on workstation # [id number] Dict: 01/04/2137 Trans: 01/04/21847 [id number] Interpreted by: KRYSTEN LINO DO Electronically signed by: KRYSTEN LINO DO 01/04/21 0848 NAME: ANGEL NATHAN [facility] REC#: [id number] PT STATUS: ADM IN : 1950 PHYSICIAN: MEDINA MINA MD ADMIT DATE: 01/04/21 Draft Date of Exam:01/04/21 LUNG SCAN PERFUSION INDICATION: Shortness of breath. TECHNIQUE: Patient was administered 5.2 mCi technetium 99m MAA intravenously and imaging over the chest was performed in multiple obliquities. FINDINGS: There appear to be bilateral wedge-shaped perfusion defects. A large wedge-shaped defect in the upper lobe on the right is seen. There also appear to be at least two large defects in the left lobe in upper and lower portions. IMPRESSION: Large wedge-shaped defects bilaterally, consistent with high probability for pulmonary embolism. Dictated on workstation # [id number] Dict: 01/04/21 1314 Trans: 01/04/21 1325 [id number] Interpreted by: SILVANA MAY MD Electronically signed by: ECG Impression ECG Initial ECG Rhythm: Normal Sinus A/P-Cardiology Assessment/Admission Diagnosis Progressive SOB - likely secondary to PE - Large wedge-shaped defects bilaterally, consistent with high probability for pulmonary embolism per VQ lung scan of 01-04-21 Acute on chronic renal insufficiency Mildly elevated troponin - probable type 2 AR secondary to transient hypoxia DVT - Partially occlusive deep vein thrombus within the mid superficial femoral artery extending into the left popliteal artery and calf vessels of the left lower extremity. No sonographic evidence of deep venous thrombosis in the right lower extremity. LAILA - CPAP tx HTN - uncontrolled HLD - per pt history Morbid obesity - BMI approx 53 Echocardiogram of 06-23-2013 showed LVEF 65%. Trivial TR. PASP 35-40mmHg MPI 06-27-2013 showed LVEF 68% Reports h/o DVT R leg over 10 yrs ago Chronic joint pain - h/o shoulder and bilat knee pain Anxiety/depression Discussion and Recomendations Progressive SOB likely secondary to PE based on VQ lung scan of 01-04-21 - Continue Lovenox Echocardiogram today to eval structure and function Uncontrolled hypertension - start BB Monitor lab closely Replace electrolytes as indicated Further recs will be based on hospital course We would like to thank medical services for this consult JYOTSNA COOPER Jan 04, 2021 11:54
[2021-01-04] MEDS: ENOXAPARIN 300 MG/3 ML (LOVENOX) MULTI-DOSE VIAL SQ SCH ×2 (12:22→23:24)
--- NOTE | 2021-01-04 12:29 | History & Physical-Hospitalist ---
History of Present Illness HPI/Chief Complaint Chief complaint: Shortness of breath with elevated D-dimer History present illness: This is a 70-year-old white male who has a past medical history of morbid obesity with BMI of 52 and LAILA on CPAP and prior DVT in the r ight leg sustained after a fall who presents to the ER with shortness of breath. Ultrasound showed DVT of the left leg. Patient had been placed on Lovenox therapeutic dose. VQ scan reveals bilateral pulmonary emboli high probability. Echocardiogram ordered showing elevated pulmonary arterial pressure but no right heart strain consistent with obesity hypoventilation syndrome and LAILA on CPAP with morbid obesity. Cardiology consulted. He does use a walker at home. Home meds were restarted Source: patient Exam Limitations: no limitations Date Seen 01/04/21 Time Seen by a Provider: 10:30 Attending Physician Gabe Holley MD PCP Gertrude Hope Referring Physician Date of Admission Jan 04, 2021 at 00:06 Home Medications & Allergies Home Medications Reviewed patient Home Medication Reconciliation performed by pharmacy medication reconciliations repair technician and/or nursing. Patients Allergies have been reviewed. Allergies Allergies Coded Allergies Penicillins (Verified Allergy, Mild, 12/15/18) ampicillin (Verified Allergy, Mild, RASH, 12/15/18) sulfacetamide (Verified Allergy, Mild, "MADE ME FEEL BAD", 03/19/15) egg (Verified Allergy, Unknown, 12/15/18) FROM UNCODED ALLERGIES Past Taifxzq-Uknwpn-Drbnhb Hx Patient Social History Marrital Status: single Employed/Student: retired Tobacco Use?: No Smoking Status: Never a Smoker Use of E-Cig and/or Vaping dev: No Substance use?: No Alcohol Use?: No Pt feels they are or have been: No Immunizations Up To Date First/Initial COVID19 Vaccinat: PFIZER- COVID19 Vaccination Don: PFIZER- Date of Pneumonia Vaccine: Mar 19, 2013 Seasonal Allergies Seasonal Allergies: Yes Current Status Advance Directives: No Communicates: Verbally Primary Language: Nigerien Preferred Spoken Language: Nigerien Is interpretation needed?: No Sensory deficits: Vision impairment Implanted or Applied Medical D: None Past Medical History Surgeries: Abdominal, Adenoidectomy, Bladder Surgery, Gallbladder, Orthopedic, Renal, Tonsillectomy Sleep Apnea Deep Vein Thrombosis, High Cholesterol, Hypertension Sexually Transmitted Disease: No HIV/AIDS: No Benign Prostatic Hyperpl, Bladder Infection, Kidney Stones Gastroesophageal Reflux, Chronic Constipation, Diverticulosis, Polyps, Hiatal Hernia, Irritable Bowel Arthritis, Chronic Back Pain, Gout Loss of Vision: Bilateral Hearing Impairment: Denies Sleep Difficulties, Anxiety, Depression Blood Disorders: No Adverse Reaction/Blood Tranf: No Family Medical History Arthritis 19 MOTHER Cardiovascular disease 19 MOTHER Colon cancer 19 FATHER 19 MOTHER G8 SISTER Dementia 19 MOTHER Hypertension 19 MOTHER G8 BROTHER Respiratory disorder 19 FATHER (lung ca) Thyroid disease 19 MOTHER No Pertinent Family Hx Review of Systems Constitutional: see HPI, malaise, weakness EENTM: no symptoms reported Respiratory: dyspnea on exertion Cardiovascular: no symptoms reported Gastrointestinal: no symptoms reported Genitourinary: no symptoms reported Musculoskeletal: joint pain Skin: no symptoms reported Psychiatric/Neurological: Anxiety All Other Systems Reviewed Negative Unless Noted: Yes Physical Exam Physical Exam Vital Signs Vital Signs - First Documented 01/03/21 01/04/21 22:25 02:09 Pulse Ox 91 O2 Delivery Nasal Cannula O2 Flow Rate 2.00 FiO2 28 Capillary Refill : Less Than 3 Seconds Height, Weight, BMI Height: 5'10.00" Weight: 358lbs. 6.0oz. [id number]; 53.20 BMI Method:Stated General Appearance: No Apparent Distress, Chronically ill, Obese Eyes: Right Eye Normal Inspection, Right Eye PERRL HEENT: PERRL/EOMI, Normal ENT Inspection, Pharynx Normal, Moist Mucous Membranes Neck: Full Range of Motion, Normal Inspection, Non Tender Respiratory: Chest Non Tender, Lungs Clear, Normal Breath Sounds, No Accessory Muscle Use, No Respiratory Distress, Decreased Breath Sounds Cardiovascular: Regular Rate, Rhythm, No Edema, No Gallop, No JVD, No Murmur, Normal Peripheral Pulses Gastrointestinal: Normal Bowel Sounds, No Organomegaly, No Pulsatile Mass, Non Tender, Soft Back: Normal Inspection, No CVA Tenderness, No Vertebral Tenderness Extremity: Normal Capillary Refill, Normal Inspection, Normal Range of Motion, Non Tender, No Calf Tenderness, Pedal Edema Neurologic/Psychiatric: Alert, Oriented x3, No Motor/Sensory Deficits, Normal Mood/Affect Skin: Normal Color, Warm/Dry Lymphatic: No Adenopathy Results Results/Procedures Labs Laboratory Tests 01/03/21 22:25 01/04/21 08:28 Patient resulted labs reviewed. Assessment/Plan Admission Diagnosis Assessment: Acute left lower extremity DVT with high probability of pulmonary emboli on VQ scan Acute kidney injury Suspected obesity hypoventilation syndrome LAILA on CPAP History of DVT in the right leg sustained after a fall 10 years ago Plan: Lovenox therapeutic dose Echo Cardiology consult Oxygen Supportive care Admission Status: Inpatient Order (span 2 midnights) Reason for Inpatient Admission: DVT and PE with hypoxia DINH TAVERAS DO Jan 04, 2021 12:29
[2021-01-04] MEDS ORDERED: ENOXAPARIN 100 MG/1 ML (LOVENOX) SYR SC SCH (12:45)
[2021-01-04] MEDS ORDERED: CHOL10004 PO (13:22)
[2021-01-04] MEDS ORDERED: VENL150C98 PO (13:22)
[2021-01-04] MEDS ORDERED: METO50TA15 PO (13:22)
[2021-01-04] MEDS ORDERED: ALEN70TA80 PO (13:22)
[2021-01-04] MEDS ORDERED: TIZA4TAB4 PO (13:22)
[2021-01-04] MEDS ORDERED: MIRA25TA PO (13:22)
[2021-01-04] MEDS ORDERED: GABA300C PO (13:22)
[2021-01-04] MEDS ORDERED: GARL1TAB2 PO (13:22)
[2021-01-04] MEDS ORDERED: ATOR80TA76 PO (13:22)
[2021-01-04] MEDS ORDERED: PANT40TA52 PO (13:22)
[2021-01-04] MEDS ORDERED: GARL100T2 PO (13:22)
[2021-01-04] MEDS ORDERED: DICL100G13 TOP (13:22)
[2021-01-04] MEDS ORDERED: LEVE750T5 PO (13:22)
[2021-01-04] MEDS ORDERED: CYAN500T8 PO (13:22)
[2021-01-04] MEDS ORDERED: ALLO100T PO (13:22)
[2021-01-04] MEDS ORDERED: CLON0.5T4 PO (13:22)
[2021-01-04] MEDS ORDERED: OXYC-556 PO (13:22)
--- NOTE | 2021-01-04 13:25 | Diagnostic Imaging Report ---
INDICATION: Shortness of breath. TECHNIQUE: Patient was administered 5.2 mCi technetium 99m MAA intravenously and imaging over the chest was performed in multiple obliquities. FINDINGS: There appear to be bilateral wedge-shaped perfusion defects. A large wedge-shaped defect in the upper lobe on the right is seen. There also appear to be at least two large defects in the left lobe in upper and lower portions. IMPRESSION: Large wedge-shaped defects bilaterally, consistent with high probability for pulmonary embolism. Dictated by: Dictated on workstation # [id number]
--- NOTE | 2021-01-04 13:48 | Physical Therapy Evaluation ---
PT Evaluation-General Medical Diagnosis Admission Date Jan 04, 2021 at 00:06 Medical Diagnosis: hypoxia/elevated D-dimer/CKD Onset Date: Jan 04, 2021 Therapy Diagnosis Therapy Diagnosis: generalized weakness/debility Height/Weight Height (Feet): 5 Height (Inches): 10.00 Weight (Pounds): 358 Weight (Ounces): 6.0 Precautions Precautions/Isolations: Standard Precautions Referral Physician: Dionne Reason for Referral: Evaluation/Treatment Medical History Pertinent Medical History: Arthritis, HTN Additional Medical History super obesity Current History ER secondary to SOA Reviewed History: Yes Social History Home: Single Level Current Living Status: Spouse Entry Into Home: Ramp Prior Prior Level of Function SCALE: Activities may be completed with or without assistive devices. 1-Wgdxccheyv-qarevkv completes the activity by him/herself with no assistance from a helper. 5-Set-up or Clean-up Assistance-helper sets up or cleans up; patient completes activity. [place] assists only prior to or following the activity. 4-Supervision or Touching Assistance-helper provides verbal cues and/or touching/steadying and/or contact guard assistance as patient completes activity. Assistance may be provided throughout the activity or intermittently. 3-Partial/Moderate Assistance-helper does LESS THAN HALF the effort. [place] lifts, holds or supports trunk or limbs, but provides less than half the effort. 2-Substantial/Maximal Assistance-helper does MORE THAN HALF the effort. [place] lifts or holds trunk or limbs and provides more than half the effort. 3-Rzxobdaow-zjujep does ALL the effort. Patient does none of the effort to complete the activity. Or, the assistance of 2 or more helpers is required for the patient to complete the activity. If activity was not attempted, code reason: 7-Patient Refused. 9-Not Applicable-not attempted and the patient did not perform the activity before the current illness, exacerbation or injury. 10-Not Attempted due to Environmental Limitations-(lack of equipment, weather restraints, etc.). 88-Not Attempted due to Medical Conditions or Safety Concerns. Bed Mobility: 6 Transfers (B,C,W/C): 6 Gait: 6 Stairs: 9 Indoor Mobility (Ambulation): Independent Stairs: Not Applicalbe Prior Devices Use: Walker (4WW) PT Evaluation-Current Subjective Patient agrees to PT. Pain Numeric Pain Scale: 0-No Pain Location: No Pain Reported Objective Patient Orientation: Normal For Age Attachments: Oxygen (3L) ROM/Strength ROM Lower Extremities bilateral LE WFL Strength Lower Extremities 3/5 grossly bilateral LE Integumentary/Posture Integumentary refer to nursing notes Bowel Incontinence: No Bladder Incontinence: No Neuromuscular (Tone, Coordination, Reflexes) grossly intact Sensory Vision: Wears Glasses Hearing: Functional Transfers Roll Left to Right (QC): 4 Sit to Lying (QC): 3 Lying to Sitting/Side of Bed(Q: 3 Sit to Stand (QC): 4 Gait Does the Patient Walk?: Yes Mode of Locomotion: Walk Anticipated Mode of Locomotion: Walk Walk 10 feet (QC): 4 Walk 50 ft with 2 Turns(QC): 88 Walk 150 ft (QC): 88 Gait Assistive Device: FWW Comments/Gait Description side stepping x 10' SBA Wheelchair Training Does the Pt Use a Wheelchair?: No Balance Sitting Static: Normal Sitting Dynamic: Normal Standing Static: Fair Standing Dynamic: Fair Assessment/Needs 70 y.o. male, will be seen by skilled PT to address functional strength and mobility to improve current LOF to safely return to home at maximum LOF. Rehab Potential: Fair PT Senior Living Goals Flap Presser Goals PT Flap Presser Goals Time Frame: Jan 12, 2021 Roll Left & Right (QC): 6 Sit to Lying (QC): 6 Lying-Sitting on Side/Bed(QC): 6 Sit to Stand (QC): 6 Chair/Ira-if-Vzgiw Xfer(QC): 6 Toilet Transfer (QC): 6 Walk 10 feet (QC): 4 Walk 50ft with 2 Turns (QC): 4 PT Plan Problem List Problem List: Activity Tolerance, Functional Strength, Balance, Gait, Transfer, Bed Mobility Treatment/Plan Treatment Plan: Continue Plan of Care Treatment Plan: Bed Mobility, Education, Functional Activity Dash, Functional Strength, Gait, Safety, Therapeutic Exercise, Transfers Treatment Duration: Jan 12, 2021 Frequency: 6 times per week Estimated Hrs Per Day: .25 hour per day Patient and/or Family Agrees t: Yes Time/GCodes Time In: 1305 Time Out: 1322 Total Billed Treatment Time: 17 Total Billed Treatment 1 visit EVMod 17 min SAMMY ZAVALA PT Jan 04, 2021 13:48
[2021-01-04] MEDS ORDERED: meTOproloL SUCCINATE 50 MG (TOPROL XL) TAB PO ONE (14:00)
--- NOTE | 2021-01-04 15:38 | Consultation-Cardiology ---
HPI-Cardiology Cardiology Consultation: Date of Consultation 01/04/21 Time Seen by a Provider: 15:15 Date of Admission Attending Physician Gabe Holley MD Admitting Physician Gertrude Hope Consulting Physician TARA BLANCHARD MD, MA, FACP, FACC, FSCAI, CCDS HPI: Chief Complaint: Progressive dyspnea Mr. Sierra is a 70 yr old male admitted to 419 from the ED with increasing SOB that started approx 4 days ago. He reports a feeling of heaviness, tightness in his chest. He reports episodes of dizziness. He reports chronic bilat LE swelling which he feels has been somewhat worse. He is somewhat sedentary d/t chronic knee pain which makes it difficult for him to ambulate.. He is not reporting any c/o CP at this time. No c/o palpitations, syncope, near syncope. He denies any n/v/d. No c/o fever or chills. There is a friend at the bedside, name Gabe, who states pt resides with his ex- Curtis Sierra for the last 4-5 years. He reports the patient is not a good medical record specialist. April can be re ached at [phone]. Gabe reports the patient sleeps in the recliner at night and takes Melatonin and Benadryl to help him sleep. Review of Systems-Cardiology Review of Systems Constitutional: As described under HPI Eyes: No vision change Ears/Nose/Throat: No epistaxis, No recent hearing loss Respiratory: As described under HPI Cardiovascular: As described under HPI Gastrointestinal: No constipation, No diarrhea, No nausea, No vomiting Genitourinary: No dysuria, No hematuria Musculoskeletal: joint pain Skin: No rash on exposed areas, No ulcerations on exposed areas Psychiatric/Neurological: anxiety, depression Hematologic: No bleeding abnormalities All Other Systems Reviewed Negative Unless Noted: Yes DIM-Fmlexl-Szntcs Hx Patient Social History 2nd Hand Smoke Exposure: No Have you traveled recently?: No Alcohol Use?: No Pt feels they are or have been: No Immunizations Up To Date Tetanus Booster (TDap): Less than 5yrs Date of Pneumonia Vaccine: Mar 19, 2013 Past Medical History PMH As described under Assessment. Family Medical History Family Medical History: He reports his mother had a-fib. No other reported family h/o CAD or stroke Family History: Arthritis 19 MOTHER Cardiovascular disease 19 MOTHER Colon cancer 19 FATHER 19 MOTHER G8 SISTER Dementia 19 MOTHER Hypertension 19 MOTHER G8 BROTHER Respiratory disorder 19 FATHER (lung ca) Thyroid disease 19 MOTHER Allergies and Home Medications Allergies Coded Allergies: Penicillins (Verified Allergy, Mild, 12/15/18) ampicillin (Verified Allergy, Mild, RASH, 12/15/18) sulfacetamide (Verified Allergy, Mild, "MADE ME FEEL BAD", 03/19/15) egg (Verified Allergy, Unknown, 12/15/18) FROM UNCODED ALLERGIES Patient Home Medication List Home Medication List Reviewed: Yes Alendronate Sodium (Alendronate Sodium) 70 Mg Tablet, 70 MG PO WED, (Reported) Entered as Reported by: YENNY HARRISON on 01/04/211321 Last Action: Reviewed Allopurinol (Allopurinol) 100 Mg Tablet, 100 MG PO DAILY, (Reported) Entered as Reported by: YENNY HARRISON on 01/04/211321 Last Action: Reviewed Atorvastatin Calcium (Atorvastatin Calcium) 80 Mg Tablet, 80 MG PO HS, (Reported) Entered as Reported by: YENNY HARRISON on 01/04/211321 Last Action: Reviewed Cholecalciferol (Vitamin D3) (Vitamin D3) 25 Mcg Tablet, 25 MCG PO DAILY, (Reported) Entered as Reported by: YENNY HARRISON on 01/04/211321 Last Action: Reviewed Clonazepam (Clonazepam) 0.5 Mg Tablet, 0.5 MG PO HS, (Reported) Entered as Reported by: YENNY HARRISON on 01/04/211321 Last Action: Reviewed Cyanocobalamin (Vitamin B-12) (Vitamin B-12) 500 Mcg Tablet, 500 MCG PO DAILY, (Reported) Entered as Reported by: YENNY HARRISON on 01/04/211321 Last Action: Reviewed Diclofenac Sodium (Diclofenac Sodium) 100 Gm Gel..gram., 1 APPLIC TOP TID PRN for PAIN-BREAKTHROUGH, (Reported) Entered as Reported by: YENNY HARRISON on 01/04/211321 Last Action: Reviewed Gabapentin (Neurontin) 300 Mg Capsule, 900 MG PO TID, (Reported) Entered as Reported by: YENNY HARRISON on 01/04/211321 Last Action: Reviewed Garlic (Odor Free Garlic) 100 Mg Tablet, 100 MG PO BID, (Reported) Entered as Reported by: YENNY HARRISON on 01/04/211321 Last Action: Reviewed Levetiracetam (Levetiracetam) 750 Mg Tablet, 750 MG PO BID, (Reported) Entered as Reported by: YENNY HARRISON on 01/04/211321 Last Action: Reviewed Metoprolol Tartrate (Metoprolol Tartrate) 50 Mg Tablet, 50 MG PO BID, (Reported) Entered as Reported by: YENNY HARRISON on 01/04/211321 Last Action: Reviewed Mirabegron (Myrbetriq) 25 Mg Tab.er.24h, 25 MG PO HS, (Reported) Entered as Reported by: YENNY HARRISON on 01/04/211321 Last Action: Reviewed Oxycodone HCl/Acetaminophen (Oxycodone-Acetaminophen 10-325) 1 Each Tablet, 1 EA PO Q4 -6H PRN for PAIN-MODERATE (5-7), (Reported) Entered as Reported by: YENNY HARRISON on 01/04/211321 Last Action: Reviewed Pantoprazole Sodium (Pantoprazole Sodium) 40 Mg Tablet.dr, 40 MG PO HS, (R eported) Entered as Reported by: YENNY HARRISON on 01/04/211321 Last Action: Reviewed Tizanidine HCl (Tizanidine HCl) 4 Mg Tablet, 4 MG PO TID PRN for MUSCLE SPASMS, (Reported) Entered as Reported by: YENNY HARRISON on 01/04/211321 Last Action: Reviewed Venlafaxine HCl (Venlafaxine HCl ER) 150 Mg Cap.er.24h, 150 MG PO DAILY, (Reported) Entered as Reported by: YENNY HARRISON on 01/04/211321 Last Action: Reviewed Discontinued Medications Allopurinol (Zyloprim) 100 Mg Tab, 100 MG PO DAILY, (Reported) Discontinued Reason: No Longer Taking Entered as Reported by: KEMAL BROWN on 01/16/12 1435 Last Action: Discontinued Aripiprazole (Aripiprazole) 5 Mg Tablet, (Reported) Discontinued Reason: No Longer Taking Entered as Reported by: DARLEEN RIVERA on 08/23/18 2092 Last Action: Discontinued Azithromycin (Azithromycin) 250 Mg Tablet, 250 MG PO UD Discontinued Reason: No Longer Taking Prescribed by: KRISTINA RICHARDS on 08/23/182014 Last Action: Discontinued Cholecalciferol (Vitamin D3) (Vitamin D3) 5,000 Unit Tablet, 5,000 UNIT PO DAILY, (Reported) Discontinued Reason: No Longer Taking Entered as Reported by: MARCOS VALE on 04/16/15 1524 Last Action: Discontinued Clonazepam (Clonazepam) 0.5 Mg Tablet, 0.5 MG PO HS, (Reported) Discontinued Reason: No Longer Taking Entered as Reported by: CARLOS PINK on 02/15/11 1520 Last Action: Discontinued Diclofenac Sodium (Diclofenac Sodium) 75 Mg Tablet.dr, 75 MG PO BID, (Reported) Discontinued Reason: No Longer Taking Entered as Reported by: MARCOS VALE on 07/12/15 1015 Last Action: Discontinued Garlic (Garlic) 2,000 Mg Capsule, 2,000 MG PO DAILY, (Reported) Discontinued Reason: No Longer Taking Entered as Reported by: MARCOS VALE on 04/16/15 1524 Last Action: Discontinued Garlic (Garlic) 1 Each Tablet, 1 EACH PO, (Reported) Discontinued Reason: Duplicate Order Entered as Reported by: YENNY HARRISON on 01/04/21 1322 Last Action: Discontinued Mometasone Furoate (Nasonex) 17 Gm Perry, 1 SPRAY NSEACH HS, (Reported) Discontinued Reason: No Longer Taking Entered as Reported by: KEMAL BROWN on 01/16/12 1435 Last Action: Discontinued Multivitamin (Multi Vitamin Daily) 1 Each Tablet, 2 EACH PO BID, (Reported) Discontinued Reason: No Longer Taking Entered as Reported by: DONNA JONES on 12/23/13 0819 Last Action: Discontinued Omeprazole (Omeprazole) 20 Mg Capsule.dr, 20 MG PO BID, (Reported) Discontinued Reason: No Longer Taking Entered as Reported by: PRADEEP JAMIL on 01/11/15 1331 Last Action: Discontinued Oxycodone Hcl/Acetaminophen (Endocet 10-325 Mg Tablet) 1 Each Tablet, 1 EACH PO Q6HR PRN PRN for PAIN, (Reported) Discontinued Reason: No Longer Taking Entered as Reported by: DONNA JONES on 12/23/13 0819 Last Action: Discontinued Tamsulosin HCl (Tamsulosin HCl) 0.4 Mg Cap.er.24h, 0.4 MG PO DAILY, (Reported) Discontinued Reason: No Longer Taking Entered as Reported by: MARCOS VALE on 07/12/15 1015 Last Action: Discontinued Trazodone HCl (Trazodone HCl) 150 Mg Tablet, 150 MG PO HS, (Reported) Discontinued Reason: No Longer Taking Entered as Reported by: CARMELA FORTE on 07/18/15 2300 Last Action: Discontinued Physical Exam-Cardiology Physical Exam Vital Signs/I&O 01/04/21 01/04/21 01/04/21 01/04/21 03:58 07:00 08:00 08:00 Temp 36.4 36.4 Pulse 93 96 97 Resp 20 22 B/P (MAP) 162/88 (112) 170/95 (120) Pulse Ox 90 89 O2 Delivery Nasal Cannula Nasal Cannula Room Air O2 Flow Rate 2.00 2.00 01/04/21 01/04/21 01/04/21 08:11 12:00 12:28 Temp 37.0 Pulse 107 110 Resp 16 B/P (MAP) 145/70 (95) Pulse Ox 90 89 O2 Delivery Nasal Cannula Nasal Cannula O2 Flow Rate 3.00 2.00 Capillary Refill : Less Than 3 Seconds Constitutional: AAO x 3, well-nourished, other HEENT: PERRL, hearing is well preserved, oral hygience is good Neck: carotid pulses are 2 + bilaterally Respiratory: chest expansion is symmetric, chest is bilaterally symmetric, lungs clear to auscultation Cardiovascular: regular rate-rhythm, S1 and S2 Gastrointestinal: soft, round Extremities: other Neurologic/Psychiatric: grossly intact Skin: No rash on exposed areas, No ulcerations on exposed areas Data Review Labs Laboratory Tests 01/03/21 22:25: White Blood Count 7.5, Red Blood Count 4.66, Hemoglobin 15.7, Hematocrit 47, Mean Corpuscular Volume 100H, Mean Corpuscular Hemoglobin 34, Mean Corpuscular Hemoglobin Concent 34, Red Cell Distribution Width 13.2, Platelet Count 223, Mean Platelet Volume 10.4, Immature Granulocyte % (Auto) 0, Neutrophils (%) (Auto) 72, Lymphocytes (%) (Auto) 17, Monocytes (%) (Auto) 9, Eosinophils (%) (Auto) 1, Basophils (%) (Auto) 1, Neutrophils # (Auto) 5.4, Lymphocytes # (Auto) 1.3, Monocytes # (Auto) 0.7, Eosinophils # (Auto) 0.1, Basophils # (Auto) 0.0, Immature Granulocyte # (Auto) 0.0, Prothrombin Time 14.1, INR Comment 1.0, Activated Partial Thromboplast Time 33, D-Dimer 8.68H, Sodium Level 140, Potass ium Level 4.2, Chloride Level 103, Carbon Dioxide Level 24, Anion Gap 13, Blood Urea Nitrogen 22H, Creatinine 1.74H, Estimat Glomerular Filtration Rate 39, BU N/Creatinine Ratio 13, Glucose Level 109H, Lactic Acid Level 1.48, Calcium Level 9.5, Corrected Calcium 9.9, Total Bilirubin 0.5, Aspartate Amino Transf (AST/SGOT) 23, Alanine Aminotransferase (ALT/SGPT) 6, Alkaline Phosphatase 130, Troponin I 0.204H, B-Type Natriuretic Peptide 780.3H, Total Protein 7.3, Albumin 3.5 01/03/21 22:26: Influenza Type A (RT-PCR) Not Detected, Influenza Type B (RT-PCR) Not Detected, SARS-CoV-2 RNA (RT-PCR) Not Detected 01/04/21 08:28: White Blood Count 7.0, Red Blood Count 4.94, Hemoglobin 16.4, Hematocrit 50, Mean Corpuscular Volume 101H, Mean Corpuscular Hemoglobin 33, Mean Corpuscular Hemoglobin Concent 33, Red Cell Distribution Width 13.2, Platelet Count 200, Mean Platelet Volume 10.6, Sodium Level 141, Potassium Level 4.2, Chloride Level 105, Carbon Dioxide Level 25, Anion Gap 11, Blood Urea Nitrogen 22H, Creatinine 1.46H, Estimat Glomerular Filtration Rate 48, BUN/Creatinine Ratio 15, Glucose Level 99, Calcium Level 9.4 Microbiology 01/03/21 Blood Culture - Preliminary, Resulted No growth Laboratory Tests 01/03/21 22:25 01/04/21 08:28 A/P-Cardiology Assessment/Admission Diagnosis Progressive SOB - likely secondary to PE - Large wedge-shaped defects bilaterally, consistent with high probability for pulmonary embolism per VQ lung scan of 01-04-21 Acute on chronic renal insufficiency Mildly elevated troponin - probable type 2 OR secondary to transient hypoxia DVT - Partially occlusive deep vein thrombus within the mid superficial femoral artery extending into the left popliteal artery and calf vessels of the left lower extremity. No sonographic evidence of deep venous thrombosis in the right lower extremity. LAILA - CPAP tx HTN - uncontrolled HLD - per pt history Morbid obesity - BMI approx 53 Echocardiogram of 06-23-2013 showed LVEF 65%. Trivial TR. PASP 35-40mmHg MPI 06-27-2013 showed LVEF 68% Reports h/o DVT R leg over 10 yrs ago Chronic joint pain - h/o shoulder and bilat knee pain Anxiety/depression Discussion and Recomendations Continue Lovenox Echocardiogram today to eval structure and function Uncontrolled hypertension - start BB Monitor lab closely Replace electrolytes as indicated Further recs will be based on hospital course We would like to thank medical services for this consult TARA BLANCHARD MD FACP FAC CCDS Jan 04, 2021 15:38
[2021-01-04] MEDS ORDERED: NON-FORMULARY MEDICATION 1 EA EA (Alendronate Sodium 70 MG) PO SCH (16:30)
[2021-01-04] MEDS: DICLOFENAC 1% GEL 100 GM (VOLTAREN) TUBE TOP PRN (18:17)
[2021-01-04] MEDS: clonazePAM 0.5 MG (KlonoPIN) TAB PO SCH (20:05)
[2021-01-04] MEDS: traZODone 150 MG (DESYREL) TABLET PO SCH (20:05)
[2021-01-04] MEDS: PANTOPRAZOLE 40 MG (PROTONIX) TAB PO SCH (20:06)
[2021-01-04] MEDS: meTOprolol TARTRATE 50 MG (LOPRESSOR) TAB PO SCH (20:06)
[2021-01-04] MEDS: GABAPENTIN 300 MG (NEURONTIN) CAP PO SCH (20:06)
[2021-01-04] MEDS: oxyCODONE/APAP 10/325MG (PERCOCET 10) TABLET PO PRN (20:11)
[2021-01-04] MEDS ORDERED: NON-FORMULARY MEDICATION 1 EA EA (Levetiracetam 750 MG) PO SCH (21:00)
[2021-01-04] MEDS ORDERED: [UNRECOGNIZED DRUG - REMARK] PO SCH (21:00)
[2021-01-05] VITALS (18 sets, daily range): BP systolic 96–150; BP diastolic 56–84
[2021-01-05] MEDS: VENlafaxine XR 75 MG (EFFEXOR XR) CAP PO SCH (06:17)
[2021-01-05] MEDS: CATHETER FLUSH 10 ML SYR IV SCH ×3 (06:17→23:06)
[2021-01-05] MEDS: CYANOCOBALAMIN 1,000 MCG (VITAMIN B-12) TABLET PO SCH (06:17)
[2021-01-05 07:13] LABS: BASOPHILS % (AUTO) 0 % (0-10); EOSINOPHILS # (AUTO) 0.1 10^3/uL (0.0-0.3); EOSINOPHILS % (AUTO) 2 % (0-10); HEMATOCRIT 43 % (40-54); LYMPHOCYTES # (AUTO) 1.5 10^3/uL (1.0-4.0); LYMPHOCYTES % (AUTO) 19 % (12-44); MEAN CORPUSCULAR HEMOGLOBIN 33 pg (25-34); MEAN CORPUSCULAR HGB CONC 32 g/dL (32-36); MEAN CORPUSCULAR VOLUME 103 fL (80-99); MEAN PLATELET VOLUME 10.2 fL (9.0-12.2); MONOCYTES % (AUTO) 14 % (0-12); NEUTROPHILS # (AUTO) 4.9 10^3/uL (1.8-7.8); NEUTROPHILS % (AUTO) 65 % (42-75); PLATELET COUNT 194 10^3/uL (130-400); WHITE BLOOD COUNT 7.5 10^3/uL (4.3-11.0)
[2021-01-05 07:54] LABS: BILIRUBIN,TOTAL 0.6 MG/DL (0.1-1.0); CALCIUM 8.9 MG/DL (8.5-10.1); CREATININE SERUM 1.31 MG/DL (0.60-1.30); POTASSIUM 4.7 MMOL/L (3.6-5.0); TOTAL PROTEIN 6.2 GM/DL (6.4-8.2)
[2021-01-05] MEDS ORDERED: NON-FORMULARY MEDICATION 1 EA EA (Venlafaxine HCl (Venlafaxine HCl ER) 150 MG) PO SCH (09:00)
[2021-01-05] MEDS ORDERED: meTOproloL SUCCINATE 50 MG (TOPROL XL) TAB PO SCH (09:00)
[2021-01-05] MEDS ORDERED: NON-FORMULARY MEDICATION 1 EA EA (Cyanocobalamin (Vitamin B-12) (Vitamin B-12) 500 MCG) PO SCH (09:00)
--- NOTE | 2021-01-05 09:18 | Physical Therapy Daily Note ---
PT Daily Note-Current Subjective States that he is doing okay. Transfers SCALE: Activities may be completed with or without assistive devices. 9-Alzbnobdcs-uqueiwa completes the activity by him/herself with no assistance from a helper. 5-Set-up or Clean-up Assistance-helper sets up or cleans up; patient completes activity. [place] assists only prior to or following the activity. 4-Supervision or Touching Assistance-helper provides verbal cues and/or touching/steadying and/or contact guard assistance as patient completes activity. Assistance may be provided throughout the activity or intermittently. 3-Partial/Moderate Assistance-helper does LESS THAN HALF the effort. [place] lifts, holds or supports trunk or limbs, but provides less than half the effort. 2-Substantial/Maximal Assistance-helper does MORE THAN HALF the effort. [place] lifts or holds trunk or limbs and provides more than half the effort. 2-Oaesyskml-dwllvw does ALL the effort. Patient does none of the effort to complete the activity. Or, the assistance of 2 or more helpers is required for the patient to complete the activity. If activity was not attempted, code reason: 7-Patient Refused. 9-Not Applicable-not attempted and the patient did not perform the activity before the current illness, exacerbation or injury. 10-Not Attempted due to Environmental Limitations-(lack of equipment, weather restraints, etc.). 88-Not Attempted due to Medical Conditions or Safety Concerns. Roll Left & Right (QC): 4 Sit to Lying (QC): 4 Lying to Sitting/Side of Bed(Q: 4 Sit to Stand (QC): 3 Chair/Hea-nu-Elayu Xfer(QC): 4 Toilet Transfer (QC): 3 Gait Training Distance: 20' Walk 10 feet (QC): 5 Gait Persons Needed: 1 Gait Assistive Device: FWW Assessment Current Status: Good Progress Patient fatigued quickly. PT Manufacturing Executive Goals Detention Goals PT Detention Goals Time Frame: Jan 12, 2021 Roll Left & Right (QC): 6 Sit to Lying (QC): 6 Lying-Sitting on Side/Bed(QC): 6 Sit to Stand (QC): 6 Chair/Inv-zc-[place] Xfer(QC): 6 Toilet Transfer (QC): 6 Walk 10 feet (QC): 4 Walk 50ft with 2 Turns (QC): 4 PT Plan Treatment/Plan Treatment Plan: Continue Plan of Care Treatment Plan: Bed Mobility, Education, Functional Activity Dash, Functional Strength, Gait, Safety, Therapeutic Exercise, Transfers Treatment Duration: Jan 12, 2021 Frequency: 6 times per week Estimated Hrs Per Day: .25 hour per day Patient and/or Family Agrees t: Yes Time/GCodes Time In: 0850 Time Out: 0915 Total Billed Treatment Time: 25 Total Billed Treatment 1, GT x 10, FA x 15' ISABELLE DICK PT Jan 05, 2021 09:18
[2021-01-05] MEDS: GABAPENTIN 300 MG (NEURONTIN) CAP PO SCH ×3 (09:39→21:45)
[2021-01-05] MEDS: ALLOPURINOL 100 MG (ZYLOPRIM) TAB PO SCH (09:40)
[2021-01-05] MEDS: meTOprolol TARTRATE 50 MG (LOPRESSOR) TAB PO SCH ×2 (09:40→21:45)
[2021-01-05] MEDS: VITAMIN D3 25 MCG (1,000 UNITS) TABLET PO SCH (09:40)
[2021-01-05] MEDS: RT-ALBUTEROL/IPRATROPIUM 3 ML (DUONEB) VIAL INH SCH ×4 (10:14→22:03)
--- NOTE | 2021-01-05 12:09 | Progress Note - Hospitalist ---
Subjective HPI/CC On Admission Date Seen by Provider: Jan 05, 2021 Time Seen by Provider: 12:20 Chief complaint: Shortness of breath with elevated D-dimer History present illness: This is a 70-year-old white male who has a past medical history of morbid obesity with BMI of 52 and LAILA on CPAP and prior DVT in the right leg sustained after a fall who presents to the ER with shortness of breath. Ultrasound showed DVT of the left leg. Patient had been placed on Lovenox therapeutic dose. VQ scan reveals bilateral pulmonary emboli high probability. Echocardiogram ordered showing elevated pulmonary arterial pressure but no right heart strain consistent with obesity hypoventilation syndrome and LAILA on CPAP with morbid obesity. Cardiology consulted. He does use a walker at home. Home meds were restarted Subjective/Events-last exam Patient lethargic suspect CO2 narcosis ABG checked and it confirmed Moved up to ICU BiPAP indicated Maintain on Lovenox Review of Systems General: Fatigue Neurological: Confusion Focused Exam Lactate Level 01/03/21 22:25: Lactic Acid Level 1.48 Objective Exam Vital Signs Vital Signs Date Time Temp Pulse Resp B/P (MAP) Pulse Ox O2 Delivery O2 Flow Rate FiO2 01/06/21 07:02 93 19 94 45.00 01/06/21 06:00 104/64 (77) NIV Bilevel 01/06/21 04:00 50 01/05/21 23:52 36.2 Capillary Refill : Less Than 3 Seconds General Appearance: No Apparent Distress, WD/WN, Chronically ill, Obese, Other (Lethargic and confused) Respiratory: Lungs Clear, Normal Breath Sounds, Decreased Breath Sounds Neurologic/Psychiatric: Alert, Disoriented Results/Procedures Lab Laboratory Tests 01/06/21 04:25 Patient resulted labs reviewed. Assessment/Plan Assessment and Plan Assess & Plan/Chief Complaint Assessment: Acute left lower extremity DVT with high probability of pulmonary emboli on VQ scan Acute kidney injury Suspected obesity hypoventilation syndrome LAILA on CPAP History of DVT in the right leg sustained after a fall 10 years ago Plan: Lovenox therapeutic dose Echo Cardiology consult Oxygen Supportive care 01/05/2021: Transfer ICU BiPAP CO2 narcosis confirmed Obesity hypoventilation syndrome suspected Refused to use hospital CPAP machine DINH TAVERAS DO Jan 05, 2021 12:09
[2021-01-05 13:43] LABS: ABG OXYGEN SATURATION 89 % (94-100); ABG PCO2 60 MMHG (35-45); ABG PO2 59 MMHG (79-93); ABG TCO2 30.7 MMOL/L (21.0-31.0)
[2021-01-05 13:47] LABS: VENTILATOR NO
[2021-01-05 13:48] LABS: INSPIRED O2 2 L
--- NOTE | 2021-01-05 14:37 | Tele-ICU Consult ---
History of Present Illness History of Present Illness Date Seen by Provider: Jan 05, 2021 Time Seen by Provider: 14:37 History of Present Illness He is a 70-year-old male with past medical history of for super morbid obesity with a BMI of 52.7 with history of sleep apnea on a CPAP at home, history of prior DVT in the right leg presented to the hospital yesterday with a complaint of shortness of breath and he is unable to sleep in the bed he has to sleep in the recliner. He is creatinine is elevated hence a nuclear medicine lung scan done which showed a prior high probability for pulmonary embolus. He was admitted to medical floor and started on subcutaneous Lovenox full therapeutic dose. Today he is shortness of breath gotten worse hence he is transferred to the intensive care unit. He is currently on 4 L of oxygen mask and his oxygen saturation is 91%. I have made a video visit and interviewed the patient patient states he is a little bit short of breath but no chest pain. No fever present. Blood cultures have been ordered. Venous Dopplers of the leg revealed nonocclusive DVT probably from old. An echocardiogram done showed normal left ventricular ejection fraction and slightly elevated pulmonary pressures without any right ventricular strain. Increase in the pulmonary pr essures could be due to his obstructive sleep apnea. Overall he does not seems to be the candidate for thrombolytic therapy. He is hemodynamically stable. I have reviewed with [employer] [facility] Allergies and Home Medications Allergies Coded Allergies: Penicillins (Verified Allergy, Mild, 12/15/18) ampicillin (Verified Allergy, Mild, RASH, 12/15/18) sulfacetamide (Verified Allergy, Mild, "MADE ME FEEL BAD", 03/19/15) egg (Verified Allergy, Unknown, 12/15/18) FROM UNCODED ALLERGIES Home Medications Alendronate Sodium 70 Mg Tablet, 70 MG PO WED, (Reported) Allopurinol 100 Mg Tablet, 100 MG PO DAILY, (Reported) Atorvastatin Calcium 80 Mg Tablet, 80 MG PO HS, (Reported) Cholecalciferol (Vitamin D3) 25 Mcg Tablet, 25 MCG PO DAILY, (Reported) Clonazepam 0.5 Mg Tablet, 0.5 MG PO HS, (Reported) Cyanocobalamin (Vitamin B-12) 500 Mcg Tablet, 500 MCG PO DAILY, (Reported) Diclofenac Sodium 100 Gm Gel..gram., 1 APPLIC TOP TID PRN for PAIN-BREAKTHROUGH, (Reported) APPLIES TO LEFT KNEE Gabapentin 300 Mg Capsule, 900 MG PO TID, (Reported) TAKES 3 (300MG) CAPS Garlic 100 Mg Tablet, 100 MG PO BID, (Reported) Levetiracetam 750 Mg Tablet, 750 MG PO BID, (Reported) Metoprolol Tartrate 50 Mg Tablet, 50 MG PO BID, (Reported) Mirabegron 25 Mg Tab.er.24h, 25 MG PO HS, (Reported) Oxycodone HCl/Acetaminophen 1 Each Tablet, 1 EA PO Q4 -6H PRN for PAIN-MODERATE (5-7), (Reported) Pantoprazole Sodium 40 Mg Tablet.dr, 40 MG PO HS, (Reported) Tizanidine HCl 4 Mg Tablet, 4 MG PO TID PRN for MUSCLE SPASMS, (Reported) Venlafaxine HCl 150 Mg Cap.er.24h, 150 MG PO DAILY, (Reported) Past Medical/Social/Family Hx Patient Social History Marrital Status: single Employed/Student: retired Tobacco Use?: No Smoking Status: Never a Smoker Use of E-Cig and/or Vaping dev: No Substance use?: No Alcohol Use?: No Pt stated abuse/neglect: No Immunizations Up To Date Influenza Vaccine Up-to-Date: No; Not Current First/Initial COVID19 Vaccinat: PFIZER- COVID19 Vaccination Don: PFIZER- Date of Pneumonia Vaccine: Mar 19, 2013 Current Status Advance Directives: No Communicates: Verbally Primary Language: Mozambican Preferred Spoken Language: Mozambican Is interpretation needed?: No Sensory deficits: Vision impairment Implanted or Applied Medical D: None Review of Systems Constitutional: see HPI Other ROS PER PRIMARY PHYSICIAN Sepsis Event Evaluation Height, Weight, BMI Height: 5'10.00" Weight: 358lbs. 6.0oz. [id number]; 53.20 BMI Method:Stated Exam Exam Patient acknowledged, consented, and participated in this virtual visit which was conducted using real time audio/video Vital Signs Date Time Temp Pulse Resp B/P (MAP) Pulse Ox O2 Delivery O2 Flow Rate FiO2 01/05/21 14:00 78 22 114/78 (90) 90 OxyMask 4.00 01/05/21 13:26 90 OxyMask 4.00 01/05/21 12:59 37.0 160 94 28 01/05/21 12:45 78 01/05/21 11:34 84 14 93 OxyMask 2.00 01/05/21 11:32 95 OxyMask 1.00 01/05/21 11:31 96 OxyMask 5.00 01/05/21 11:27 35.7 160 10 109/59 (76) 77 Nasal Cannula 6.00 01/05/21 10:14 90 Nasal Cannula 4.00 01/05/21 08:48 92 Nasal Cannula 4.00 01/05/21 08:25 36.1 87 14 150/84 (106) Nasal Cannula 4.00 01/05/21 08:00 Nasal Cannula 3.00 01/05/21 07:00 76 01/05/21 04:24 36.4 84 16 133/80 (97) 93 01/05/21 01:58 91 Nasal Cannula 4.00 01/05/21 01:00 80 01/05/21 00:31 37.1 88 13 133/69 (90) 89 01/04/21 21:41 91 Nasal Cannula 3.00 01/04/21 20:15 Nasal Cannula 3.00 01/04/21 19:28 36.3 94 18 170/77 (108) 90 Nasal Cannula 4.00 01/04/21 19:00 90 01/04/21 16:06 36.6 95 20 137/75 (95) 89 Nasal Cannula 4.00 I & O 01/05/21 07:00 Intake Total 1180 ml Output Total 450 ml Balance 730 ml Height & Weight Height: 5'10.00" Weight: 358lbs. 6.0oz. 162.080786vc; 53.20 BMI Method:Stated General Appearance: No Apparent Distress, Chronically ill, Obese HEENT: PERRL/EOMI, Normal ENT Inspection, Pharynx Normal, Moist Mucous Membranes Neck: Full Range of Motion, Normal Inspection, Non Tender Respiratory: Chest Non Tender, Lungs Clear, Normal Breath Sounds, No Accessory Muscle Use, No Respiratory Distress, Decreased Breath Sounds Cardiovascular: Regular Rate, Rhythm, No Edema, No Gallop, No JVD, No Murmur, Normal Peripheral Pulses Capillary Refill: Less Than 3 Seconds Extremity: Normal Capillary Refill, Normal Inspection, Normal Range of Motion, Non Tender, No Calf Tenderness, Pedal Edema Neurologic/Psychiatric: Alert, Oriented x3, No Motor/Sensory Deficits, Normal Mood/Affect Skin: Normal Color, Warm/Dry Lymphatic: No Adenopathy Other comments PE PER ATTENDING PHYSICIAN Results Lab Laboratory Tests 01/03/21 22:25 01/04/21 08:28 01/05/21 07:00 Assessment/Plan Assessment/Plan Video visit made and I interviewed the patient and discussed with the [employer]. Impression 1. Bilateral pulmonary embolism. 2. Acute on chronic hypoxia secondary to pulmonary embolism on the top of obstructive sleep apnea. 3. Super morbid obesity with a BMI of 52.7 4. Limited mobility due to obesity and arthritis 5. History of for DVT in the past 6. Pulmonary hypertension mild probably due to obstructive sleep apnea. 7. Acute and chronic kidney disease. Recommendations 1. Continue Lovenox therapeutic dose for a day or 2 after that patient can be started on Eliquis. 2. We will change oxygen to BiPAP 14/5 with 40% FiO2 and titrate FiO2 to keep O2 sats over 90%. 3. Continue monitor BUN and creatinine as well as blood cultures. 4. Ulcer prophylaxis with Pepcid. Thank you for this consultation. Critical Care: Critically Ill Patient Time spent with patient (mins): 50 NIKKI PATRICIA MD Jan 05, 2021 14:37
[2021-01-05] MEDS: ENOXAPARIN 300 MG/3 ML (LOVENOX) MULTI-DOSE VIAL SQ SCH (15:36)
--- NOTE | 2021-01-05 15:57 | Progress Note - Cardiology ---
Cardiology SOAP Progress Note Subjective: More short of breath today No cp or palp or syncope Gen malaise present No n/v/d Objective: I&O/Vital Signs 01/05/21 01/05/21 01/05/21 01/05/21 04:24 07:00 08:00 08:25 Temp 36.4 36.1 Pulse 84 76 87 Resp 16 14 B/P (MAP) 133/80 (97) 150/84 (106) Pulse Ox 93 O2 Delivery Nasal Cannula Nasal Cannula O2 Flow Rate 3.00 4.00 01/05/21 01/05/21 01/05/21 01/05/21 08:48 10:14 11:27 11:31 Temp 35.7 Pulse 160 Resp 10 B/P (MAP) 109/59 (76) Pulse Ox 92 90 77 96 O2 Delivery Nasal Cannula Nasal Cannula Nasal Cannula OxyMask O2 Flow Rate 4.00 4.00 6.00 5.00 01/05/21 01/05/21 01/05/21 01/05/21 11:32 11:34 12:45 12:59 Temp 37.0 Pulse 84 78 160 Resp 14 Pulse Ox 95 93 94 O2 Delivery OxyMask OxyMask O2 Flow Rate 1.00 2.00 FiO2 28 01/05/21 01/05/21 01/05/21 01/05/21 13:26 14:00 15:00 15:24 Pulse 78 84 82 Resp 22 21 16 B/P (MAP) 114/78 (90) 126/68 (87) Pulse Ox 90 90 89 94 O2 Delivery OxyMask OxyMask OxyMask O2 Flow Rate 4.00 4.00 4.00 40.00 01/05/21 15:31 Temp 37.3 01/05/21 00:00 Intake Total 1080 ml Output Total 200 ml Balance 880 ml Weight (Pounds): 358 Weight (Ounces): 6.0 Weight (Calculated Kilograms): 162.219633 Constitutional: AAO x 3, well-nourished, other Respiratory: chest expansion is symmetric, chest is bilaterally symmetric, lungs clear to auscultation Cardiovascular: regular rate-rhythm, S1 and S2 Gastrointestional: soft, round Extremities: other Neurologic/Psychiatric: grossly intact Skin: No rash on exposed areas, No ulcerations on exposed areas Results/Procedures: Labs Laboratory Tests 01/05/21 07:00: White Blood Count 7.5, Red Blood Count 4.19L, Hemoglobin 14.0, Hematocrit 43, Mean Corpuscular Volume 103H, Mean Corpuscular Hemoglobin 33, Mean Corpuscular Hemoglobin Concent 32, Red Cell Distribution Width 13.2, Platelet Count 194, Mean Platelet Volume 10.2, Immature Granulocyte % (Auto) 0, Neutrophils (%) (Auto) 65, Lymphocytes (%) (Auto) 19, Monocytes (%) (Auto) 14H, Eosinophils (%) (Auto) 2, Basophils (%) (Auto) 0, Neutrophils # (Auto) 4.9, Lymphocytes # (Auto) 1.5, Monocytes # (Auto) 1.0, Eosinophils # (Auto) 0.1, Basophils # (Auto) 0.0, Immature Granulocyte # (Auto) 0.0, Sodium Level 144, Potassium Level 4.7, Chloride Level 107, Carbon Dioxide Level 26, Anion Gap 11, Blood Urea Nitrogen 21H, Creatinine 1.31H, Estimat Glomerular Filtration Rate 54, BUN/Creatinine Ratio 16, Glucose Level 113H, Calcium Level 8.9, Corrected Calcium 9.7, Total Bilirubin 0.6, Aspartate Amino Transf (AST/SGOT) 17, Alanine Aminotransferase (ALT/SGPT) 6, Alkaline Phosphatase 109, Total Protein 6.2L, Albumin 3.0L 01/05/21 11:51: Blood Gas Puncture Site RIGHT RADIAL, Blood Gas Patient Temperature 37.0, Arterial Blood pH 7.30*L, Arterial Blood Partial Pressure CO2 60H, Arterial Blood Partial Pressure O2 59L, Arterial Blood HCO3 29H, Arterial Blood Total CO2 30.7, Arterial Blood Oxygen Saturation 89L, Arterial Blood Base Excess 3.0H, Zain Test NA, Blood Gas Ventilator Setting NO, Blood Gas Inspired Oxygen 2 L Microbiology 01/03/21 Blood Culture - Preliminary, Resulted No growth Laboratory Tests 01/03/21 22:25 01/04/21 08:28 01/05/21 07:00 A/P: Assessment: Progressive SOB, necessitating transfer to ICU on 01/05/21 - due to PE (large wedge-shaped defects bilaterally, consistent with high proba bility for pulmonary embolism per VQ lung scan of 01-04-21) - Echo on 01/04/21: LVEF 55-65%, PASP 30-35 mmHg Acute on chronic renal insufficiency: stable/improving Mildly elevated troponin - probable type 2 NE secondary to transient hypoxia DVT - Partially occlusive deep vein thrombus within the mid superficial femoral artery extending into the left popliteal artery and calf vessels of the left lower extremity. No sonographic evidence of deep venous thrombosis in the right lower extremity. LAILA - CPAP tx HTN HLD, by history Morbid obesity - BMI approx 54 Chronic joint pain - h/o shoulder and bilat knee pain H/o anxiety/depression Plan: Continue Lovenox Echocardiogram today to eval structure and function Uncontrolled hypertension - start BB Monitor lab closely Replace electrolytes as indicated Further recs will be based on hospital course We would like to thank medical services for this consult TARA BLANCHARD MD FACP FAC CCDS Jan 05, 2021 15:57
[2021-01-05] MEDS: clonazePAM 0.5 MG (KlonoPIN) TAB PO SCH (21:45)
[2021-01-05] MEDS: traZODone 150 MG (DESYREL) TABLET PO SCH (21:45)
[2021-01-05] MEDS: PANTOPRAZOLE 40 MG (PROTONIX) TAB PO SCH (21:45)
[2021-01-06] VITALS (27 sets, daily range): BP systolic 90–152; BP diastolic 42–99
[2021-01-06] MEDS: ENOXAPARIN 300 MG/3 ML (LOVENOX) MULTI-DOSE VIAL SQ SCH ×3 (01:29→23:04)
[2021-01-06] MEDS: RT-ALBUTEROL/IPRATROPIUM 3 ML (DUONEB) VIAL INH SCH ×6 (02:50→22:02)
[2021-01-06 05:35] LABS: BASOPHILS % (AUTO) 0 % (0-10); EOSINOPHILS # (AUTO) 0.1 10^3/uL (0.0-0.3); EOSINOPHILS % (AUTO) 1 % (0-10); HEMATOCRIT 45 % (40-54); HEMOGLOBIN 14.7 g/dL (13.3-17.7); LYMPHOCYTES # (AUTO) 1.4 10^3/uL (1.0-4.0); LYMPHOCYTES % (AUTO) 20 % (12-44); MEAN CORPUSCULAR HEMOGLOBIN 33 pg (25-34); MEAN CORPUSCULAR HGB CONC 33 g/dL (32-36); MEAN CORPUSCULAR VOLUME 102 fL (80-99); MEAN PLATELET VOLUME 10.7 fL (9.0-12.2); MONOCYTES # (AUTO) 0.7 10^3/uL (0.0-1.0); MONOCYTES % (AUTO) 9 % (0-12); NEUTROPHILS # (AUTO) 4.9 10^3/uL (1.8-7.8); NEUTROPHILS % (AUTO) 69 % (42-75); PLATELET COUNT 197 10^3/uL (130-400); WHITE BLOOD COUNT 7.1 10^3/uL (4.3-11.0)
[2021-01-06 05:56] LABS: ALANINE AMINOTRANSFERASE < 6 U/L (0-55); ALBUMIN 3.1 GM/DL (3.2-4.5); ALKALINE PHOSPHATASE 108 U/L (40-136); BILIRUBIN,TOTAL 0.9 MG/DL (0.1-1.0); BUN/CREATININE RATIO 14; CARBON DIOXIDE 24 MMOL/L (21-32); CHLORIDE 107 MMOL/L (98-107); CREATININE SERUM 1.18 MG/DL (0.60-1.30); GFR ESTIMATED 61; GLUCOSE 94 MG/DL (70-105); POTASSIUM 4.3 MMOL/L (3.6-5.0); SODIUM 142 MMOL/L (135-145); TOTAL PROTEIN 6.4 GM/DL (6.4-8.2)
[2021-01-06] MEDS: KCL 20 MEQ TAB (K-DUR) PO SCH (06:07)
[2021-01-06] MEDS: MAGNESIUM 1 GM/100 ML IVPB 100 ML IV SCH (06:07)
[2021-01-06] MEDS: POTASSIUM CL 10MEQ/50ML IVPB 50 ML IV SCH (06:07)
[2021-01-06 06:30] LABS: PHOSPHORUS 2.9 MG/DL (2.3-4.7)
[2021-01-06] MEDS: CATHETER FLUSH 10 ML SYR IV SCH ×3 (06:49→22:12)
[2021-01-06] MEDS: VENlafaxine XR 75 MG (EFFEXOR XR) CAP PO SCH (06:50)
[2021-01-06] MEDS: CYANOCOBALAMIN 1,000 MCG (VITAMIN B-12) TABLET PO SCH (06:50)
--- NOTE | 2021-01-06 08:42 | Tele-ICU Progress Note ---
Subjective Date Seen by a Provider: Jan 06, 2021 Time Seen by a Provider: 07:00 Subjective/Events-last exam This virtual visit was conducted using real time audio/video. Thank you for asking us to see this patient for respiratory insufficiency and distress due to B PEs and LLE DVT. Covid neg. PMH: LAILA, Morbid obesity, previous DVT. PE: Comfortable on BiPAP. VSS O2 sat 93% on 14/5, 50%. HEENT: No obvious masses, adenopathy or JVD. Chest: clear to auscultation. Diminished sounds. CV: RRR S1 S2 No murmur or added sounds. Abd: Non-tender. Bowel sounds Y. : Unremarkable. Daniel N. OXYACETYLENE WELDER/psychiatric: Alert and oriented, grossly intact. No obvious focal findings. Extremities: 2+ edema. Capillary refill < 3 seconds. Skin: unremarkable. Results: Elevated BNP 780.3. Decreased Albumin 3.1. AB.3/60/59. A/P: Respiratory insufficiency/distress: Wean BiPAP as ernst. Available chart/ vitals / labs / images reviewed. Video assessment done using teleICU camera, rest of exam as per RN. Monitor for increasing oxygenation needs and/or need for intubation. Critical Care: critically ill patient. Cont duonebs,PPI, metoprolol and Lovenox. Discussed with JONES Arrington. Asked RN to reach out to eICU if any questions or concerns later. Time spent with patient/coordination of care with other health professionals (mins): 20. Sepsis Event Evaluation Height, Weight, BMI Height: 5'10.00" Weight: 358lbs. 6.0oz. 162.393570rp; 53.20 BMI Method:Stated Focused Exam Lactate Level 01/03/21 22:25: Lactic Acid Level 1.48 Exam Exam Patient acknowledged, consented, and participated in this virtual visit which was conducted using real time audio/video Vital Signs Date Time Temp Pulse Resp B/P (MAP) Pulse Ox O2 Delivery O2 Flow Rate FiO2 01/06/21 08:00 94 18 115/72 (86) 91 NIV Bilevel 50.00 01/06/21 07:53 36.3 01/06/21 07:02 93 19 94 45.00 01/06/21 07:00 94 21 116/99 (105) 95 NIV Bilevel 50.00 01/06/21 07:00 96 01/06/21 06:00 85 17 104/64 (77) 93 NIV Bilevel 50.00 01/06/21 05:00 88 17 112/68 (83) 95 NIV Bilevel 50.00 01/06/21 04:00 94 NIV Bilevel 50 01/06/21 04:00 88 34 115/70 (85) 95 NIV Bilevel 50.00 01/06/21 03:00 78 22 111/64 (80) 92 NIV Bilevel 50.00 01/06/21 02:50 78 18 96 50.00 01/06/21 02:00 78 20 90/62 (71) 92 NIV Bilevel 50.00 01/06/21 01:00 71 01/06/21 01:00 73 18 107/67 (80) 93 NIV Bilevel 50.00 01/06/21 01:00 71 12 102/60 (74) 92 NIV Bilevel 50.00 01/06/21 00:00 72 17 96/70 (79) 92 NIV Bilevel 50.00 01/05/21 23:52 36.2 NIV Bilevel 50.00 01/05/21 23:51 94 NIV Bilevel 50 01/05/21 23:00 77 22 99/64 (76) 92 NIV Bilevel 40.00 01/05/21 22:03 90 18 98 40.00 01/05/21 22:00 93 12 119/56 (77) 95 NIV Bilevel 40.00 01/05/21 21:00 89 15 114/68 (83) 93 NIV Bilevel 40.00 01/05/21 20:00 36.2 01/05/21 20:00 92 NIV Bilevel 40 01/05/21 20:00 84 18 118/82 (94) 91 NIV Bilevel 40.00 01/05/21 19:00 91 01/05/21 19:00 90 20 102/59 (73) 92 NIV Bilevel 40.00 01/05/21 18:00 85 11 96/60 (72) 91 OxyMask 4.00 01/05/21 17:00 87 19 101/60 (74) 92 OxyMask 4.00 01/05/21 16:00 92 NIV Bilevel 40 01/05/21 16:00 81 21 112/73 (86) 96 OxyMask 4.00 01/05/21 15:55 96 NIV Bilevel 40 01/05/21 15:31 37.3 01/05/21 15:24 82 16 94 40.00 01/05/21 15:00 84 21 126/68 (87) 89 OxyMask 4.00 01/05/21 14:00 78 22 114/78 (90) 90 OxyMask 4.00 01/05/21 13:26 90 OxyMask 4.00 01/05/21 13:26 86 18 117/73 (88) 94 OxyMask 4.00 01/05/21 12:59 37.0 160 94 28 01/05/21 12:45 78 01/05/21 11:34 84 14 93 OxyMask 2.00 01/05/21 11:32 95 OxyMask 1.00 01/05/21 11:31 96 OxyMask 5.00 01/05/21 11:27 35.7 160 10 109/59 (76) 77 Nasal Cannula 6.00 01/05/21 10:14 90 Nasal Cannula 4.00 01/05/21 08:48 92 Nasal Cannula 4.00 I & O 01/06/21 07:00 Intake Total 400 ml Output Total 575 ml Balance -175 ml Height & Weight Height: 5'10.00" Weight: 358lbs. 6.0oz. 162.887466bk; 53.20 BMI Method:Stated General Appearance: No Apparent Distress, WD/WN, Chronically ill, Obese, Other (Lethargic and confused) HEENT: PERRL/EOMI, Normal ENT Inspection, Pharynx Normal, Moist Mucous Membranes Neck: Full Range of Motion, Normal Inspection, Non Tender Respiratory: Lungs Clear, Normal Breath Sounds, Decreased Breath Sounds Cardiovascular: Regular Rate, Rhythm, No Edema, No Gallop, No JVD, No Murmur, Normal Peripheral Pulses Capillary Refill: Less Than 3 Seconds Peripheral Pulses: 1+ Dorsalis Pedis (R) (see free text), 1+ Left Dors-Pedis (L) Extremity: Normal Capillary Refill, Normal Inspection, Normal Range of Motion, Non Tender, No Calf Tenderness, Pedal Edema Neurologic/Psychiatric: Alert, Disoriented Skin: Normal Color, Warm/Dry Lymphatic: No Adenopathy Results Lab Laboratory Tests 01/05/21 07:00 01/06/21 04:25 Assessment/Plan Assessment/Plan See free text. Critical Care: Critically Ill Patient FAVIOLA ANDREWS MD Jan 06, 2021 08:42
[2021-01-06] MEDS: ALLOPURINOL 100 MG (ZYLOPRIM) TAB PO SCH (08:57)
[2021-01-06] MEDS: VITAMIN D3 25 MCG (1,000 UNITS) TABLET PO SCH (08:58)
[2021-01-06] MEDS: meTOprolol TARTRATE 50 MG (LOPRESSOR) TAB PO SCH ×2 (08:58→20:04)
[2021-01-06] MEDS: GABAPENTIN 300 MG (NEURONTIN) CAP PO SCH ×3 (08:58→20:04)
[2021-01-06 10:53] LABS: ABG BASE EXCESS 4.4 MMOL/L (-2.5-2.5); ABG OXYGEN SATURATION 84 % (94-100); ABG PCO2 54 MMHG (35-45); ABG PH 7.35 (7.37-7.43); ABG PO2 51 MMHG (79-93); ABG TCO2 31.4 MMOL/L (21.0-31.0)
[2021-01-06 10:54] LABS: INSPIRED O2 50%; PATIENT TEMP 36.5; VENTILATOR NO
--- NOTE | 2021-01-06 14:32 | Progress Note - Cardiology ---
Cardiology SOAP Progress Note Subjective: Shortness of breath somewhat better No cp or palp or syncope No n/v/d Gen weakness and malaise present Objective: I&O/Vital Signs 01/06/21 01/06/21 01/06/21 01/06/21 02:50 03:00 04:00 04:00 Pulse 78 78 88 Resp 18 22 34 B/P (MAP) 111/64 (80) 115/70 (85) Pulse Ox 96 92 95 94 O2 Delivery NIV Bilevel NIV Bilevel NIV Bilevel O2 Flow Rate 50.00 50.00 50.00 FiO2 50 01/06/21 01/06/21 01/06/21 01/06/21 05:00 06:00 07:00 07:00 Pulse 88 85 96 94 Resp 17 17 21 B/P (MAP) 112/68 (83) 104/64 (77) 116/99 (105) Pulse Ox 95 93 95 O2 Delivery NIV Bilevel NIV Bilevel NIV Bilevel O2 Flow Rate 50.00 50.00 50.00 01/06/21 01/06/21 01/06/21 01/06/21 07:02 07:53 08:00 08:00 Temp 36.3 Pulse 93 94 Resp 19 18 B/P (MAP) 115/72 (86) Pulse Ox 94 97 91 O2 Delivery NIV Bilevel NIV Bilevel O2 Flow Rate 45.00 50.00 FiO2 50 01/06/21 01/06/21 01/06/21 01/06/21 09:00 10:00 10:42 11:00 Pulse 96 75 73 71 Resp 22 23 19 B/P (MAP) 130/79 (96) 115/72 (86) 108/65 (79) Pulse Ox 91 93 94 94 O2 Delivery NIV Bilevel NIV Bilevel NIV Bilevel O2 Flow Rate 50.00 50.00 40.00 50.00 01/06/21 01/06/21 01/06/21 01/06/21 11:51 12:00 12:00 12:18 Temp 37.0 Pulse 84 Resp 21 B/P (MAP) 142/82 (102) Pulse Ox 95 95 O2 Delivery High Flow N/C NIV Bilevel Nasal Cannula O2 Flow Rate 12.00 50.00 12.00 01/06/21 01/06/21 01/06/21 12:51 13:00 14:00 Pulse 90 86 89 Resp 10 14 B/P (MAP) 124/69 (87) 127/74 (91) Pulse Ox 93 93 O2 Delivery Nasal Cannula Nasal Cannula O2 Flow Rate 12.00 12.00 01/06/21 00:00 Intake Total 180 ml Output Total 175 ml Balance 5 ml Weight (Pounds): 358 Weight (Ounces): 6.0 Weight (Calculated Kilograms): 162.176031 Constitutional: AAO x 3, well-nourished, other Respiratory: chest expansion is symmetric, chest is bilaterally symmetric, lungs clear to auscultation Cardiovascular: regular rate-rhythm, S1 and S2 Gastrointestional: soft, round Extremities: other Neurologic/Psychiatric: grossly intact Skin: No rash on exposed areas, No ulcerations on exposed areas Results/Procedures: Labs Laboratory Tests 01/06/21 04:25: White Blood Count 7.1, Red Blood Count 4.43, Hemoglobin 14.7, Hematocrit 45, Mean Corpuscular Volume 102H, Mean Corpuscular Hemoglobin 33, Mean Corpuscular Hemoglobin Concent 33, Red Cell Distribution Width 13.2, Platelet Count 197, Mean Platelet Volume 10.7, Immature Granulocyte % (Auto) 0, Neutrophils (%) (Auto) 69, Lymphocytes (%) (Auto) 20, Monocytes (%) (Auto) 9, Eosinophils (%) (Auto) 1, Basophils (%) (Auto) 0, Neutrophils # (Auto) 4.9, Lymphocytes # (Auto) 1.4, Monocytes # (Auto) 0.7, Eosinophils # (Auto) 0.1, Basophils # (Auto) 0.0, Immature Granulocyte # (Auto) 0.0, Sodium Level 142, Potassium Level 4.3, Chloride Level 107, Carbon Dioxide Level 24, Anion Gap 11, Blood Urea Nitrogen 16, Creatinine 1.18, Estimat Glomerular Filtration Rate 61, BUN/Creatinine Ratio 14, Glucose Level 94, Calcium Level 9.0, Corrected Calcium 9.7, Phosphorus Level 2.9, Magnesium Level 2.0, Total Bilirubin 0.9, Aspartate Amino Transf (AST/SGOT) 13, Alanine Aminotransferase (ALT/SGPT) < 6, Alkaline Phosphatase 108, Total Protein 6.4, Albumin 3.1L 01/06/21 10:40: Blood Gas Puncture Site L WRIST, Blood Gas Patient Temperature 36.5, Arterial Blood pH 7.35L, Arterial Blood Partial Pressure CO2 54H, Arterial Blood Partial Pressure O2 51L, Arterial Blood HCO3 30H, Arterial Blood Total CO2 31.4H, Arterial Blood Oxygen Saturation 84L, Arterial Blood Base Excess 4.4H, Zain Test NA, Blood Gas Ventilator Setting NO, Blood Gas Inspired Oxygen 50% Microbiology 01/03/21 Blood Culture - Preliminary, Resulted No growth Laboratory Tests 01/05/21 07:00 01/06/21 04:25 A/P: Assessment: Progressive SOB, necessitating transfer to ICU on 01/05/21 - due to PE (large wedge-shaped defects bilaterally, consistent with high probability for pulmonary embolism per VQ lung scan of 01-04-21) - Echo on 01/04/21: LVEF 55-65%, PASP 30-35 mmHg Acute on chronic renal insufficiency: improving Mildly elevated troponin - probable type 2 [place] secondary to transient hypoxia DVT - Partially occlusive deep vein thrombus within the mid superficial femoral artery extending into the left popliteal artery and calf vessels of the left lower extremity. No sonographic evidence of deep venous thrombosis in the right lower extremity. LAILA - CPAP tx HTN HLD, by history Morbid obesity - BMI approx 54 Chronic joint pain - h/o shoulder and bilat knee pain H/o anxiety/depression Plan: Continue anticoag and current regimen Replace electrolytes as indicated Would likely need lifetime anticoag I discussed his CV issues with him and answered questions TARA BLANCHARD MD FACP FAC CCDS Jan 06, 2021 14:32
[2021-01-06] MEDS: clonazePAM 0.5 MG (KlonoPIN) TAB PO SCH (20:03)
[2021-01-06] MEDS: traZODone 150 MG (DESYREL) TABLET PO SCH (20:04)
[2021-01-06] MEDS: oxyCODONE/APAP 10/325MG (PERCOCET 10) TABLET PO PRN (20:04)
[2021-01-06] MEDS: PANTOPRAZOLE 40 MG (PROTONIX) TAB PO SCH (20:04)
[2021-01-07] VITALS (25 sets, daily range): BP systolic 90–163; BP diastolic 42–88
[2021-01-07] MEDS: RT-ALBUTEROL/IPRATROPIUM 3 ML (DUONEB) VIAL INH SCH ×6 (02:57→22:51)
[2021-01-07] MEDS: CATHETER FLUSH 10 ML SYR IV SCH ×3 (05:01→21:30)
[2021-01-07 05:03] LABS: ABG BASE EXCESS 2.8 MMOL/L (-2.5-2.5); ABG OXYGEN SATURATION 99 % (94-100); ABG PCO2 57 MMHG (35-45); ABG PO2 120 MMHG (79-93); ABG TCO2 30.3 MMOL/L (21.0-31.0)
[2021-01-07 05:05] LABS: ALLENS TEST YES-POS; INSPIRED O2 50% BIPAP; VENTILATOR NO
[2021-01-07 05:06] LABS: ABG PH 7.32 (7.37-7.43); PATIENT TEMP 36.7
[2021-01-07 05:18] LABS: BASOPHILS % (AUTO) 0 % (0-10); EOSINOPHILS # (AUTO) 0.1 10^3/uL (0.0-0.3); EOSINOPHILS % (AUTO) 2 % (0-10); HEMATOCRIT 41 % (40-54); HEMOGLOBIN 13.6 g/dL (13.3-17.7); LYMPHOCYTES # (AUTO) 1.3 10^3/uL (1.0-4.0); LYMPHOCYTES % (AUTO) 19 % (12-44); MEAN CORPUSCULAR HEMOGLOBIN 34 pg (25-34); MEAN CORPUSCULAR HGB CONC 33 g/dL (32-36); MEAN CORPUSCULAR VOLUME 101 fL (80-99); MEAN PLATELET VOLUME 10.7 fL (9.0-12.2); MONOCYTES # (AUTO) 0.6 10^3/uL (0.0-1.0); MONOCYTES % (AUTO) 8 % (0-12); NEUTROPHILS % (AUTO) 70 % (42-75); PLATELET COUNT 191 10^3/uL (130-400); WHITE BLOOD COUNT 7.1 10^3/uL (4.3-11.0)
[2021-01-07 05:35] LABS: ALBUMIN 2.9 GM/DL (3.2-4.5)
[2021-01-07 05:36] LABS: CHLORIDE 106 MMOL/L (98-107); POTASSIUM 3.9 MMOL/L (3.6-5.0); SODIUM 142 MMOL/L (135-145)
[2021-01-07 05:37] LABS: CALCIUM 8.6 MG/DL (8.5-10.1)
[2021-01-07 05:38] LABS: GLUCOSE 107 MG/DL (70-105); TOTAL PROTEIN 5.9 GM/DL (6.4-8.2)
[2021-01-07 05:39] LABS: CARBON DIOXIDE 23 MMOL/L (21-32)
[2021-01-07 05:40] LABS: BILIRUBIN,TOTAL 0.7 MG/DL (0.1-1.0)
[2021-01-07 05:41] LABS: ALKALINE PHOSPHATASE 89 U/L (40-136)
[2021-01-07 05:42] LABS: GFR ESTIMATED 66
[2021-01-07 05:43] LABS: BUN/CREATININE RATIO 14
[2021-01-07 05:44] LABS: ALANINE AMINOTRANSFERASE < 6 U/L (0-55)
[2021-01-07] MEDS: MAGNESIUM 1 GM/100 ML IVPB 100 ML IV SCH (06:15)
[2021-01-07] MEDS: POTASSIUM CL 10MEQ/50ML IVPB 50 ML IV SCH (06:15)
[2021-01-07] MEDS: KCL 20 MEQ TAB (K-DUR) PO SCH (06:15)
[2021-01-07 06:32] LABS: MAGNESIUM 2.1 MG/DL (1.6-2.4); PHOSPHORUS 3.1 MG/DL (2.3-4.7)
[2021-01-07] MEDS: CYANOCOBALAMIN 1,000 MCG (VITAMIN B-12) TABLET PO SCH (06:37)
[2021-01-07] MEDS: VENlafaxine XR 75 MG (EFFEXOR XR) CAP PO SCH (06:37)
--- NOTE | 2021-01-07 08:00 | Physical Therapy Progress Note ---
Therapy Progress Note Patient was transferred to ICU, we will need new orders to evaluate and start again when appropriate. ASTRID WATSON PT Jan 07, 2021 08:00
[2021-01-07] MEDS: meTOprolol TARTRATE 50 MG (LOPRESSOR) TAB PO SCH ×2 (08:01→20:20)
[2021-01-07] MEDS: ALLOPURINOL 100 MG (ZYLOPRIM) TAB PO SCH (08:01)
[2021-01-07] MEDS: oxyCODONE/APAP 10/325MG (PERCOCET 10) TABLET PO PRN ×2 (08:01→20:20)
[2021-01-07] MEDS: GABAPENTIN 300 MG (NEURONTIN) CAP PO SCH ×3 (08:01→20:22)
[2021-01-07] MEDS: VITAMIN D3 25 MCG (1,000 UNITS) TABLET PO SCH (08:01)
--- NOTE | 2021-01-07 08:36 | Progress Note - Cardiology ---
Cardiology SOAP Progress Note Subjective: Lying in bed eating breakfast No c/o CP Feels SOB is better today No c/o palpitations Objective: I&O/Vital Signs 01/07/21 01/07/21 01/07/21 01/07/21 22:00 22:51 22:53 23:00 Pulse 82 74 76 Resp 18 17 12 B/P (MAP) 129/42 (71) 106/58 (74) Pulse Ox 89 92 93 92 O2 Delivery Vapotherm NIV Bilevel Vapotherm O2 Flow Rate 20.00 50.00 20.00 60.00 60.00 FiO2 50 01/07/21 01/08/21 01/08/21 01/08/21 23:20 00:00 00:00 00:05 Temp 36.2 Pulse 70 Resp 21 B/P (MAP) 98/60 (70) Pulse Ox 93 O2 Delivery NIV Bilevel NIV Bilevel NIV Bilevel O2 Flow Rate 50.00 50.00 FiO2 50 01/08/21 01/08/21 01/08/21 01/08/21 01:00 01:00 02:00 02:23 Pulse 71 71 71 Resp 14 B/P (MAP) 99/62 (74) 95/64 (77) Pulse Ox 92 93 93 O2 Delivery NIV Bilevel NIV Bilevel NIV Bilevel O2 Flow Rate 50.00 50.00 FiO2 50 01/08/21 01/08/21 01/08/21 01/08/21 02:25 03:00 03:07 03:07 Temp 36.0 Pulse 71 71 Resp 16 14 B/P (MAP) 97/59 (73) Pulse Ox 93 93 O2 Delivery NIV Bilevel NIV Bilevel O2 Flow Rate 50.00 50.00 FiO2 50 01/08/21 01/08/21 01/08/21 01/08/21 04:00 05:00 06:00 06:52 Pulse 73 79 75 Resp 16 10 B/P (MAP) 100/65 (77) 105/89 (99) 104/58 (71) Pulse Ox 96 98 98 93 O2 Delivery NIV Bilevel NIV Bilevel NIV Bilevel Vapotherm O2 Flow Rate 50.00 50.00 50.00 25.00 FiO2 70 01/08/21 01/08/21 01/08/21 01/08/21 07:00 07:00 07:25 07:27 Temp 36.8 Pulse 86 90 Resp 18 B/P (MAP) 135/93 (107) Pulse Ox 98 97 O2 Delivery NIV Bilevel NIV Bilevel O2 Flow Rate 50.00 20.00 FiO2 70 01/08/21 01/08/21 08:00 09:00 Pulse 96 92 Resp 23 35 B/P (MAP) 112/49 (70) 112/57 (75) Pulse Ox 95 94 O2 Delivery NIV Bilevel NIV Bilevel O2 Flow Rate 50.00 50.00 01/08/21 00:00 Intake Total 620 ml Output Total 475 ml Balance 145 ml Weight (Pounds): 358 Weight (Ounces): 6.0 Weight (Calculated Kilograms): 162.917808 Constitutional: AAO x 3, well-nourished, other Respiratory: chest expansion is symmetric, chest is bilaterally symmetric, other (good air entry) Cardiovascular: regular rate-rhythm, S1 and S2 Gastrointestional: soft, round Extremities: other (mild bilat LE swelling) Neurologic/Psychiatric: grossly intact Skin: No rash on exposed areas, No ulcerations on exposed areas Results/Procedures: Labs Laboratory Tests 01/08/21 04:13: White Blood Count 6.8, Red Blood Count 4.38, Hemoglobin 14.7, Hematocrit 45, Mean Corpuscular Volume 102H, Mean Corpuscular Hemoglobin 34, Mean Corpuscular Hemoglobin Concent 33, Red Cell Distribution Width 13.2, Platelet Count 173, Mean Platelet Volume 10.6, Immature Granulocyte % (Auto) 0, Neutrophils (%) (Auto) 70, Lymphocytes (%) (Auto) 17, Monocytes (%) (Auto) 9, Eosinophils (%) (Auto) 4, Basophils (%) (Auto) 0, Neutrophils # (Auto) 4.7, Lymphocytes # (Auto) 1.2, Monocytes # (Auto) 0.6, Eosinophils # (Auto) 0.3, Basophils # (Auto) 0.0, Immature Granulocyte # (Auto) 0.0, Sodium Level 141, Potassium Level 4.4, Chloride Level 104, Carbon Dioxide Level 25, Anion Gap 12, Blood Urea Nitrogen 13, Creatinine 1.05, Estimat Glomerular Filtration Rate 70, BUN/Creatinine Ratio 12, Glucose Level 103, Calcium Level 9.1, Corrected Calcium 9.8, Phosphorus Level 3.2, Magnesium Level 1.9, Total Bilirubin 0.8, Aspartate Amino Transf (AST/SGOT) 21, Alanine Aminotransferase (ALT/SGPT) 7, Alkaline Phosphatase 96, Total Protein 6.5, Albumin 3.1L 01/08/21 05:15: Blood Gas Puncture Site RR, Blood Gas Patient Temperature 36.4, Arterial Blood pH 7.29*L, Arterial Blood Partial Pressure CO2 62H, Arterial Blood Partial Pressure O2 103H, Arterial Blood HCO3 30H, Arterial Blood Total CO2 31.6H, Arterial Blood Oxygen Saturation 98, Arterial Blood Base Excess 3.5H, Zain Test YES-POS, Blood Gas Ventilator Setting NO, Blood Gas Inspired Oxygen 50% BIPAP Microbiology 01/05/21 MRSA Screen - Final, Complete MRSA not isolated 01/03/21 Blood Culture - Preliminary, Resulted No growth A/P: Assessment: Progressive SOB, necessitating transfer to ICU on 01/05/21 - due to PE (large wedge-shaped defects bilaterally, consistent with high probability for pulmonary embolism per VQ lung scan of 01-04-21) - Echo on 01/04/21: LVEF 55-65%, PASP 30-35 mmHg Acute on chronic renal insufficiency: improving Mildly elevated troponin - probable type 2 [place] secondary to transient hypoxia DVT - Partially occlusive deep vein thrombus within the mid superficial femoral artery extending into the left popliteal artery and calf vessels of the left lower extremity. No sonographic evidence of deep venous thrombosis in the right lower extremity. LAILA - CPAP tx HTN HLD, by history Morbid obesity - BMI approx 54 Chronic joint pain - h/o shoulder and bilat knee pain H/o anxiety/depression Plan: Continue anticoag and current regimen Replace electrolytes as indicated Would likely need lifetime anticoag I discussed his CV issues with him and answered questions JYOTSNA COOPER Jan 07, 2021 08:36
--- NOTE | 2021-01-07 09:29 | Tele-ICU Progress Note ---
Subjective Time Seen by a Provider: 09:28 Sepsis Event Evaluation Height, Weight, BMI Height: 5'10.00" Weight: 358lbs. 6.0oz. 162.387365is; 53.20 BMI Method:Stated Exam Exam Patient acknowledged, consented, and participated in this virtual visit which was conducted using real time audio/video Vital Signs Date Time Temp Pulse Resp B/P (MAP) Pulse Ox O2 Delivery O2 Flow Rate FiO2 01/07/21 08:55 Vapotherm 25.00 75.00 01/07/21 08:44 Vapotherm 25.00 70.00 01/07/21 08:19 36.8 01/07/21 08:00 93 13 127/71 (89) 94 NIV Bilevel 50.00 01/07/21 07:53 95 Vapotherm 25.00 75 01/07/21 07:00 89 16 163/70 (101) 94 NIV Bilevel 50.00 01/07/21 07:00 89 01/07/21 06:35 79 14 91 50.00 01/07/21 06:00 78 13 104/62 (73) 89 NIV Bilevel 50.00 01/07/21 05:00 36.7 01/07/21 05:00 84 15 111/65 (78) 93 NIV Bilevel 50.00 01/07/21 04:42 NIV Bilevel 50 01/07/21 04:00 85 17 103/57 (72) 95 NIV Bilevel 50.00 01/07/21 03:00 76 13 95/44 (64) 93 NIV Bilevel 50.00 01/07/21 02:58 73 23 93 50.00 01/07/21 02:00 73 20 95/61 (72) 90 NIV Bilevel 50.00 01/07/21 01:00 76 01/07/21 01:00 76 16 90/54 (66) 90 NIV Bilevel 50.00 01/07/21 00:06 NIV Bilevel 50 01/07/21 00:05 36.4 NIV Bilevel 50.00 01/07/21 00:00 79 17 101/60 (74) 92 NIV Bilevel 70.00 01/06/21 23:00 79 15 96/57 (67) 93 NIV Bilevel 70.00 01/06/21 22:02 73 23 97 50.00 01/06/21 22:00 90 18 96/42 (57) 96 NIV Bilevel 70.00 01/06/21 21:07 NIV Bilevel 70.00 01/06/21 21:00 93 18 116/56 (75) 89 NIV Bilevel 50.00 01/06/21 20:44 NIV Bilevel 50.00 01/06/21 20:10 36.0 01/06/21 20:00 112 22 113/91 (98) 91 Vapotherm 25.00 75.00 01/06/21 19:32 Vapotherm 25.00 75 01/06/21 19:26 109 24 139/77 (97) 90 Vapotherm 25.00 75.00 01/06/21 19:12 91 Vapotherm 25.00 70 01/06/21 19:00 101 31 148/80 (102) 90 Vapotherm 25.00 70.00 01/06/21 19:00 101 01/06/21 18:00 99 18 152/97 (115) 94 Nasal Cannula 12.00 01/06/21 17:00 90 13 143/81 (101) 94 Nasal Cannula 12.00 01/06/21 16:00 95 Vapotherm 25.00 70 01/06/21 16:00 81 21 112/73 (86) 96 Nasal Cannula 12.00 01/06/21 15:10 94 Vapotherm 25.00 70 01/06/21 15:00 84 20 128/69 (88) 93 Nasal Cannula 12.00 01/06/21 14:00 89 14 127/74 (91) 93 Nasal Cannula 12.00 01/06/21 13:00 86 10 124/69 (87) 93 Nasal Cannula 12.00 01/06/21 12:51 90 01/06/21 12:18 Nasal Cannula 12.00 01/06/21 12:00 37.0 01/06/21 12:00 84 21 142/82 (102) 95 NIV Bilevel 50.00 01/06/21 11:51 95 High Flow N/C 12.00 01/06/21 11:00 71 19 108/65 (79) 94 NIV Bilevel 50.00 01/06/21 10:42 73 23 94 40.00 01/06/21 10:00 75 115/72 (86) 93 NIV Bilevel 50.00 I & O 01/07/21 07:00 Intake Total 1530 ml Output Total 1025 ml Balance 505 ml Height & Weight Height: 5'10.00" Weight: 358lbs. 6.0oz. 162.541841yb; 53.20 BMI Method:Stated General Appearance: No Apparent Distress, WD/WN, Chronically ill, Obese, Other (Lethargic and confused) HEENT: PERRL/EOMI, Normal ENT Inspection, Pharynx Normal, Moist Mucous Membranes Neck: Full Range of Motion, Normal Inspection, Non Tender Respiratory: Lungs Clear, Normal Breath Sounds, Decreased Breath Sounds Cardiovascular: Regular Rate, Rhythm, No Edema, No Gallop, No JVD, No Murmur, Normal Peripheral Pulses Capillary Refill: Less Than 3 Seconds Peripheral Pulses: 1+ Dorsalis Pedis (R) (see free text), 1+ Left Dors-Pedis (L) Extremity: Normal Capillary Refill, Normal Inspection, Normal Range of Motion, Non Tender, No Calf Tenderness, Pedal Edema Neurologic/Psychiatric: Alert, Disoriented Skin: Normal Color, Warm/Dry Lymphatic: No Adenopathy Results Lab Laboratory Tests 01/06/21 04:25 01/07/21 04:31 Assessment/Plan Assessment/Plan (Tele-ICU Physician , Progress Note ) Available chart/ vitals / labs / Images reviewed Video assessment done using teleICU camera, rest of exam as per RN Discussed with RN , EXAM PER RN Events overnight : on bipap Afebrile I/O = Drips: Pressors: , hemodynamically stable Consultants: Hospital course: 01/03 70 yr male DX:Hypoxia, elevated d-dimer 01/03 Imaging suggests araceli PE , DVT left LE 01/05 Desaturating and increased Fi02 req. BiPAP. VSS O2 sat 93% on 13/07, 50%. 01/07 - BiPAP. 13/07, 50%. night , VT 25L 75% A/P Bilteral PE - (large wedge-shaped defects bilaterally, consistent with high probability for pulmonary embolism per VQ lung scan of 01-04-21) - Echo on 01/04/21: LVEF 55-65%, PASP 30-35 mmHg- -AC with lovenox 150 bid Acute resp failure , hypoxic and hypercapnic ( acute on chronic - on BiPAP. VSS O2 sat 93% on 14/5, 50%.-- > mild resp acidosis -> will increase to 16/8 VT 25L 75% - follow cxr 01/08 Acute on chronic renal insufficiency: improving Mildly elevated troponin - probable type 2 [place] secondary to transient hypoxia - as per cards on beta blockers DVT LEFT - AC lovenox - to change to ? NOAC LAILA - PSG 2016 ( wt 266 lb then as per report , now 370 lb ) REM AHI 49 , totl AHI 5,5 - titrated CPAP 7 cm - CPAP tx --? home setting and compliance - PROBABLY NEED TO REPEAT PSG Pulm HTN - mst likely to combination of above -PASP 30-35 mmHg Super morbid obesity with a BMI of 52.7 Chronic joint pain - h/o shoulder and bilat knee pain H/o anxiety/depression Keppra for tremors ? - recent - ? attributes to co2 retention Lines : (Central Line Necessity Reviewed) Daniel: OG: Nutrition: PO Analgesia: Anxiety/ delirium VTE Prophylaxis: lynn full dose Stress Ulcer Prophylaxis: na Plans in collaboration with bedside consultants and IM MDs. Discussed with RN to reach out if any questions or concerns A total of 33 minutes of critical care time was devoted to this patient today, required to treat and/or prevent further deterioration of critical care condition ( as above) . ELIAS BRAR MD Jan 07, 2021 09:29
[2021-01-07] MEDS: ENOXAPARIN 300 MG/3 ML (LOVENOX) MULTI-DOSE VIAL SQ SCH (11:19)
[2021-01-07] MEDS: MICONAZOLE 2% POWDER (DESENEX AF) 90 GM TOP SCH ×2 (12:21→20:23)
--- NOTE | 2021-01-07 13:31 | Physical Therapy Evaluation ---
PT Evaluation-General Medical Diagnosis Admission Date Jan 04, 2021 at 00:06 Medical Diagnosis: hypoxia/elevated D-dimer/CKD Onset Date: Jan 04, 2021 Therapy Diagnosis Therapy Diagnosis: impaired mobility, strength, endurance Height/Weight Height (Feet): 5 Height (Inches): 10.00 Weight (Pounds): 358 Weight (Ounces): 6.0 Precautions Precautions/Isolations: Fall Prevention, Standard Precautions Referral Physician: Dionne Reason for Referral: Evaluation/Treatment Medical History Pertinent Medical History: Arthritis, HTN Additional Medical History Past Medical History Surgeries: Abdominal, Adenoidectomy, Bladder Surgery, Gallbladder, Orthopedic, Renal, Tonsillectomy Sleep Apnea Deep Vein Thrombosis, High Cholesterol, Hypertension Sexually Transmitted Disease: No HIV/AIDS: No Benign Prostatic Hyperpl, Bladder Infection, Kidney Stones Gastroesophageal Reflux, Chronic Constipation, Diverticulosis, Polyps, Hiatal Hernia, Irritable Bowel Arthritis, Chronic Back Pain, Gout Loss of Vision: Bilateral Hearing Impairment: Denies Sleep Difficulties, Anxiety, Depression Reviewed History: Yes Social History Home: Single Level Current Living Status: Spouse Entry Into Home: Ramp Prior Prior Level of Function SCALE: Activities may be completed with or without assistive devices. 4-Vqkyupidmz-dhmunzk completes the activity by him/herself with no assistance from a helper. 5-Set-up or Clean-up Assistance-helper sets up or cleans up; patient completes activity. [place] assists only prior to or following the activity. 4-Supervision or Touching Assistance-helper provides verbal cues and/or touching/steadying and/or contact guard assistance as patient completes activity. Assistance may be provided throughout the activity or intermittently. 3-Partial/Moderate Assistance-helper does LESS THAN HALF the effort. [place] lifts, holds or supports trunk or limbs, but provides less than half the effort. 2-Substantial/Maximal Assistance-helper does MORE THAN HALF the effort. [place] lifts or holds trunk or limbs and provides more than half the effort. 0-Xioijfgxw-bxhttw does ALL the effort. Patient does none of the effort to complete the activity. Or, the assistance of 2 or more helpers is required for the patient to complete the activity. If activity was not attempted, code reason: 7-Patient Refused. 9-Not Applicable-not attempted and the patient did not perform the activity before the current illness, exacerbation or injury. 10-Not Attempted due to Environmental Limitations-(lack of equipment, weather restraints, etc.). 88-Not Attempted due to Medical Conditions or Safety Concerns. Bed Mobility: 6 Transfers (B,C,W/C): 6 Gait: 6 Indoor Mobility (Ambulation): Independent Stairs: Not [place] Prior Devices Use: Walker (4WW) PT Evaluation-Current Subjective Patient in bed pre tx, agrees to PT, has no complaints of pain. Pt/Family Goals to be independent at home Objective Patient Orientation: Person, Confused Attachments: Oxygen (vapotherm) ROM/Strength ROM Lower Extremities WNL Strength Lower Extremities LLE (hip flexion 2/5, knee flexion 3+/5, knee extension 4/5, dorsiflexion 4/5), RLE (hip flexion 2/5, knee flexion 3+/5, knee extension 4/5, dorsiflexion 4/5) Integumentary/Posture Bowel Incontinence: No Bladder Incontinence: No Sensory Vision: Wears Glasses Hearing: Functional Sensation Right Lower Extremit: Intact Sensation Left Lower Extremity: Intact Transfers Roll Left to Right (QC): 3 Sit to Lying (QC): 3 Lying to Sitting/Side of Bed(Q: 3 Sit to Stand (QC): 4 Patient needs min assist for supine <-> sit but CGA for sit to stand, patient is able to take a few steps forward and back and then a few steps toward the head of the bed before sitting down. His O2 remained above 90% and HR stayed in the 80's. Gait Distance: 5' Gait Assistive Device: FWW Comments/Gait Description CGA, cues for direction Balance Sitting Static: Fair Sitting Dynamic: Fair Standing Static: Fair Standing Dynamic: Fair Treatment supine BLE exercises x20 (AP, HS) Assessment/Needs Patient in bed post tx with nurse call, phone, tray, all needs met. Patient has impaired mobility, strength, endurance. Patient needs min assist for supine <-> sit but just CGA for sit to stand Rehab Potential: Fair PT Fence Setter Goals [facility] Goals PT [facility] Goals Time Frame: Jan 14, 2021 Roll Left & Right (QC): 4 Sit to Lying (QC): 4 Lying-Sitting on Side/Bed(QC): 4 Sit to Stand (QC): 4 Chair/Pvc-al-Abjvw Xfer(QC): 4 Walk 10 feet (QC): 4 Walk 50ft with 2 Turns (QC): 4 PT Plan Problem List Problem List: Activity Tolerance, Functional Strength, Safety, Balance, Gait, Transfer, Bed Mobility, ROM Treatment/Plan Treatment Plan: Continue Plan of Care Treatment Plan: Bed Mobility, Education, Functional Activity Dash, Functional Strength, Gait, Safety, Therapeutic Exercise, Transfers Treatment Duration: Jan 14, 2021 Frequency: 6 times per week Estimated Hrs Per Day: .25 hour per day Patient and/or Family Agrees t: Yes Safety Risks/Education Patient Education: Gait Training, Transfer Techniques, Correct Positioning, Safety Issues Teaching Recipient: Patient Teaching Methods: Demonstration, Discussion Response to Teaching: Reinforcement Needed Discharge Recommendations Plan Patient will perform bed mobility and transfer training, balance and endurance training, functional strengthening, gait training, and education, to improve functional mobility and independence at home. Therapy Discharge Recommendati: Scheduled Assistance, Post Acute PT Time/GCodes Time In: 1308 Time Out: 1320 Total Billed Treatment Time: 12 Total Billed Treatment 1 visit ASTRID SUAREZ PT Jan 07, 2021 13:31
--- NOTE | 2021-01-07 17:13 | Progress Note - Cardiology ---
Cardiology SOAP Progress Note Subjective: No cp or palp or syncope Persistent shortness of breath with mild activity No n/v/d Gen malaise and weakness Objective: I&O/Vital Signs 01/07/21 01/07/21 01/07/21 01/07/21 06:00 06:35 07:00 07:00 Pulse 78 79 89 89 Resp 13 14 16 B/P (MAP) 104/62 (73) 163/70 (101) Pulse Ox 89 91 94 O2 Delivery NIV Bilevel NIV Bilevel O2 Flow Rate 50.00 50.00 50.00 01/07/21 01/07/21 01/07/21 01/07/21 07:53 08:00 08:19 08:44 Temp 36.8 Pulse 93 Resp 13 B/P (MAP) 127/71 (89) Pulse Ox 95 94 O2 Delivery Vapotherm NIV Bilevel Vapotherm O2 Flow Rate 25.00 50.00 25.00 70.00 FiO2 75 01/07/21 01/07/21 01/07/21 01/07/21 08:55 09:00 10:00 10:17 Pulse 93 81 Resp 13 15 B/P (MAP) 110/56 (74) 127/69 (88) Pulse Ox 94 92 92 O2 Delivery Vapotherm Vapotherm Vapotherm Vapotherm O2 Flow Rate 25.00 25.00 25.00 25.00 75.00 75.00 75.00 FiO2 75 01/07/21 01/07/21 01/07/21 01/07/21 11:00 12:00 12:00 12:39 Temp 36.8 Pulse 80 75 Resp 18 24 B/P (MAP) 111/61 (78) 126/73 (90) Pulse Ox 93 95 94 O2 Delivery Vapotherm Vapotherm Vapotherm O2 Flow Rate 25.00 25.00 25.00 75.00 75.00 FiO2 75 01/07/21 01/07/21 01/07/21 01/07/21 13:00 13:00 14:00 14:24 Pulse 73 73 75 Resp 25 B/P (MAP) 103/51 (68) 145/78 (100) Pulse Ox 92 93 92 O2 Delivery Vapotherm Vapotherm Vapotherm O2 Flow Rate 25.00 25.00 25.00 75.00 75.00 FiO2 75 01/07/21 01/07/21 01/07/21 01/07/21 15:00 16:00 16:00 16:14 Temp 36.8 Pulse 84 96 Resp 20 B/P (MAP) 144/87 (106) 128/88 (101) Pulse Ox 96 95 93 94 O2 Delivery Vapotherm Vapotherm Vapotherm Vapotherm O2 Flow Rate 25.00 25.00 20.00 20.00 75.00 75.00 60.00 FiO2 60 01/07/21 00:00 Intake Total 890 ml Output Total 800 ml Balance 90 ml Weight (Pounds): 358 Weight (Ounces): 6.0 Weight (Calculated Kilograms): 162.171389 Constitutional: AAO x 3, well-nourished, other Respiratory: chest expansion is symmetric, chest is bilaterally symmetric, other (good air entry) Cardiovascular: regular rate-rhythm, S1 and S2 Gastrointestional: soft, round Extremities: other (mild bilat LE swelling) Neurologic/Psychiatric: grossly intact Skin: No rash on exposed areas, No ulcerations on exposed areas Results/Procedures: Labs Laboratory Tests 01/07/21 04:31: White Blood Count 7.1, Red Blood Count 4.05L, Hemoglobin 13.6, Hematocrit 41, Mean Corpuscular Volume 101H, Mean Corpuscular Hemoglobin 34, Mean Corpuscular Hemoglobin Concent 33, Red Cell Distribution Width 13.2, Platelet Count 191, Mean Platelet Volume 10.7, Immature Granulocyte % (Auto) 0, Neutrophils (%) (Auto) 70, Lymphocytes (%) (Auto) 19, Monocytes (%) (Auto) 8, Eosinophils (%) (Auto) 2, Basophils (%) (Auto) 0, Neutrophils # (Auto) 5.0, Lymphocytes # (Auto) 1.3, Monocytes # (Auto) 0.6, Eosinophils # (Auto) 0.1, Basophils # (Auto) 0.0, Immature Granulocyte # (Auto) 0.0, Sodium Level 142, Potassium Level 3.9, Chloride Level 106, Carbon Dioxide Level 23, Anion Gap 13, Blood Urea Nitrogen 15, Creatinine 1.10, Estimat Glomerular Filtration Rate 66, BUN/Creatinine Ratio 14, Glucose Level 107H, Calcium Level 8.6, Corrected Calcium 9.5, Phosphorus Level 3.1, Magnesium Level 2.1, Total Bilirubin 0.7, Aspartate Amino Transf (AST/SGOT) 16, Alanine Aminotransferase (ALT/SGPT) < 6, Alkaline Phosphatase 89, Total Protein 5.9L, Albumin 2.9L 01/07/21 04:56: Blood Gas Puncture Site RR, Blood Gas Patient Temperature 36.7, Arterial Blood pH 7.32*L, Arterial Blood Partial Pressure CO2 57H, Arterial Blood Partial Pressure O2 120H, Arterial Blood HCO3 29H, Arterial Blood Total CO2 30.3, Arterial Blood Oxygen Saturation 99, Arterial Blood Base Excess 2.8H, Zain Test YES-POS, Blood Gas Ventilator Setting NO, Blood Gas Inspired Oxygen 50% BIPAP Microbiology 01/05/21 MRSA Screen - Final, Complete MRSA not isolated 01/03/21 Blood Culture - Preliminary, Resulted No growth Laboratory Tests 01/06/21 04:25 01/07/21 04:31 A/P: Assessment: Progressive SOB, necessitating transfer to ICU on 01/05/21 - due to PE (large wedge-shaped defects bilaterally, consistent with high probability for pulmonary embolism per VQ lung scan of 01-04-21) - Echo on 01/04/21: LVEF 55-65%, PASP 30-35 mmHg Acute on chronic renal insufficiency: improving Mildly elevated troponin - probable type 2 [place] secondary to transient hypoxia DVT - Partially occlusive deep vein thrombus within the mid superficial femoral artery extending into the left popliteal artery and calf vessels of the left lower extremity. No sonographic evidence of deep venous thrombosis in the right lower extremity. LAILA - CPAP tx HTN HLD, by history Morbid obesity - BMI approx 54 Chronic joint pain - h/o shoulder and bilat knee pain H/o anxiety/depression Plan: Continue anticoag and current regimen Replace electrolytes as indicated Would likely need lifetime anticoag I discussed his CV issues with him and answered questions TARA BLANCHARD MD FACP [facility] Jan 07, 2021 17:13
--- NOTE | 2021-01-07 19:25 | Progress Note ---
Subjective Subjective/Events-last exam Patient states that he is feeling somewhat better. Declines using hosp CPAP because he does not like it. Tolerating PO diet. Review of Systems Pulmonary: Dyspnea, Cough Cardiovascular: No: Chest Pain, Palpitations, Edema Gastrointestinal: No: Nausea, Vomiting, Abdominal Pain, Diarrhea, Constipation Genitourinary: No Dysuria, No Frequency, No Incontinence Neurological: Weakness, Incoordination Objective Exam Last Set of Vital Signs Vital Signs Date Time Temp Pulse Resp B/P (MAP) Pulse Ox O2 Delivery O2 Flow Rate FiO2 01/07/21 18:33 93 Vapotherm 20.00 60 01/07/21 18:00 93 21 127/67 (87) 01/07/21 16:14 36.8 Capillary Refill : Less Than 3 Seconds I&O Intake and Output 01/07/21 00:00 Intake Total 1330 ml Output Total 1200 ml Balance 130 ml Intake Oral 1330 ml Output Urine Total 1200 ml General: Alert, Oriented X3, Moderate Distress (with minmal activity) Lungs: Clear to Auscultation, Normal Air Movement Heart: Regular Rate, No Murmurs Abdomen: Normal Bowel Sounds, Soft, No Tenderness, No Masses Extremities: Other (1+ pitting edema L>R) Neuro: Normal Speech, Sensation Intact, Cranial Nerves 3-12 NL Results/Procedures Lab Laboratory Tests 01/07/21 04:31: White Blood Count 7.1, Red Blood Count 4.05L, Hemoglobin 13.6, Hematocrit 41, Mean Corpuscular Volume 101H, Mean Corpuscular Hemoglobin 34, Mean Corpuscular Hemoglobin Concent 33, Red Cell Distribution Width 13.2, Platelet Count 191, Mean Platelet Volume 10.7, Immature Granulocyte % (Auto) 0, Neutrophils (%) (Auto) 70, Lymphocytes (%) (Auto) 19, Monocytes (%) (Auto) 8, Eosinophils (%) (Auto) 2, Basophils (%) (Auto) 0, Neutrophils # (Auto) 5.0, Lymphocytes # (Auto) 1.3, Monocytes # (Auto) 0.6, Eosinophils # (Auto) 0.1, Basophils # (Auto) 0.0, Immature Granulocyte # (Auto) 0.0, Sodium Level 142, Potassium Level 3.9, Chloride Level 106, Carbon Dioxide Level 23, Anion Gap 13, Blood Urea Nitrogen 15, Creatinine 1.10, Estimat Glomerular Filtration Rate 66, BUN/Creatinine Ratio 14, Glucose Level 107H, Calcium Level 8.6, Corrected Calcium 9.5, Phosphorus Level 3.1, Magnesium Level 2.1, Total Bilirubin 0.7, Aspartate Amino Transf (AST/SGOT) 16, Alanine Aminotransferase (ALT/SGPT) < 6, Alkaline Phosphatase 89, Total Protein 5.9L, Albumin 2.9L 01/07/21 04:56: Blood Gas Puncture Site RR, Blood Gas Patient Temperature 36.7, Arterial Blood pH 7.32*L, Arterial Blood Partial Pressure CO2 57H, Arterial Blood Partial Pressure O2 120H, Arterial Blood HCO3 29H, Arterial Blood Total CO2 30.3, Arterial Blood Oxygen Saturation 99, Arterial Blood Base Excess 2.8H, Zain Test YES-POS, Blood Gas Ventilator Setting NO, Blood Gas Inspired Oxygen 50% BIPAP Microbiology 01/05/21 MRSA Screen - Final, Complete MRSA not isolated 01/03/21 Blood Culture - Preliminary, Resulted No growth Radiology NAME: [facility] REC#: [id number] PT STATUS: ADM IN : 1950 PHYSICIAN: BEVERLY RAMIREZ MD ADMIT DATE: 01/04/21 Signed Date of Exam:01/03/21 CHEST 1 VIEW, AP/PA ONLY INDICATION: sepsis COMPARISON: 08/23/2018 FINDINGS: Single frontal view of the chest demonstrates mild cardiomegaly. Pulmonary vasculature is within normal limits. The lungs are well aerated and clear. No large pleural effusion or pneumothorax is seen. The visualized osseous structures show no acute abnormalities. IMPRESSION: 1. Mild cardiomegaly, but no evidence of failure or focal infiltrate. Dictated by: Dictated on workstation # [id number] Dict: 01/04/2138 Trans: 01/04/2144 [id number] Interpreted by: MARILEE MONCADA MD Electronically signed by: MARILEE MONCADA MD 01/04/2144 [id number] PT STATUS: ADM IN : 1950 PHYSICIAN: YASIR MELARA MD ADMIT DATE: 01/04/21 Signed Date of Exam:01/04/21 US VENOUS LOWER EXT LEOBARDO PROCEDURE: US Venous Lower Ext Leobardo. TECHNIQUE: Multiple real-time grayscale images were obtained over the lower extremities in various projections, bilaterally. Additional duplex Doppler and color Doppler images were also obtained. INDICATION: Lower extremity pain and edema. Elevated D-dimer. COMPARISON: 04/28/2012. FINDINGS: There is partially occlusive deep vein thrombus within the mid superficial femoral artery extending through the left popliteal artery and calf vessels of the left lower extremity. The left common femoral and profunda femoris arteries are normal with normal compressibility and color Doppler filling. The right common femoral vein, femoral vein, deep femoral vein, and popliteal vein are normal in appearance. These vessels show normal compressibility, color flow and doppler augmentation. The visualized deep calf veins demonstrate no distinct intraluminal thrombus. IMPRESSION: 1. Partially occlusive deep vein thrombus within the mid superficial femoral artery extending into the left popliteal artery and calf vessels of the left lower extremity. 2. No sonographic evidence of deep venous thrombosis in the right lower extremity. Called to Felix at 8:46 a.m. by cvb. Dictated by: Dictated on workstation # [id number] Dict: 01/04/2137 Trans: 01/04/2148 [id number] Interpreted by: KRYSTEN LINO DO Electronically signed by: KRYSTEN LINO DO 01/04/2148 NAME: ANGEL NATHAN [facility] REC#: [id number] PT STATUS: ADM IN : 1950 PHYSICIAN: MEDINA MINA MD ADMIT DATE: 01/04/21 Draft Date of Exam:01/04/21 LUNG SCAN PERFUSION INDICATION: Shortness of breath. TECHNIQUE: Patient was administered 5.2 mCi technetium 99m MAA intravenously and imaging over the chest was performed in multiple obliquities. FINDINGS: There appear to be bilateral wedge-shaped perfusion defects. A large wedge-shaped defect in the upper lobe on the right is seen. There also appear to be at least two large defects in the left lobe in upper and lower portions. IMPRESSION: Large wedge-shaped defects bilaterally, consistent with high probability for pulmonary embolism. Dictated on workstation # [id number] Dict: 01/04/21 1314 Trans: 01/04/21 1325 [id number] Interpreted by: SILVANA MAY MD Electronically signed by: Assessment/Plan Assessment/Plan (1) Acute and chronic respiratory failure with hypercapnia Status: Acute Assessment & Plan: 01/07: MAT protocol, continue to titrate as tolerated (2) Left leg DVT Status: Acute Assessment & Plan: 01/07: Patient on tx lovenox, V/Q scan with high probability of PE Qualifiers: Qualified Codes: I82.402 - Acute embolism and thrombosis of unspecified deep veins of left lower extremity (3) Obesity hypoventilation syndrome Status: Acute (4) LAILA on CPAP Status: Acute Assessment & Plan: 01/07: patient to bring home CPAP to hospital (5) Elevated d-dimer Status: Acute (6) Adult BMI 50.0-59.9 kg/sq m Status: Acute AYE DE LA VEGA MD Jan 07, 2021 19:25
[2021-01-07] MEDS: clonazePAM 0.5 MG (KlonoPIN) TAB PO SCH (20:20)
[2021-01-07] MEDS: PANTOPRAZOLE 40 MG (PROTONIX) TAB PO SCH (20:21)
[2021-01-07] MEDS: traZODone 150 MG (DESYREL) TABLET PO SCH (20:21)
[2021-01-08] VITALS (25 sets, daily range): BP systolic 83–135; BP diastolic 44–93
[2021-01-08] MEDS: ENOXAPARIN 300 MG/3 ML (LOVENOX) MULTI-DOSE VIAL SQ SCH ×2 (00:05→11:08)
[2021-01-08] MEDS: RT-ALBUTEROL/IPRATROPIUM 3 ML (DUONEB) VIAL INH SCH ×6 (02:23→21:31)
[2021-01-08 05:04] LABS: BASOPHILS % (AUTO) 0 % (0-10); EOSINOPHILS # (AUTO) 0.3 10^3/uL (0.0-0.3); EOSINOPHILS % (AUTO) 4 % (0-10); HEMATOCRIT 45 % (40-54); HEMOGLOBIN 14.7 g/dL (13.3-17.7); LYMPHOCYTES # (AUTO) 1.2 10^3/uL (1.0-4.0); LYMPHOCYTES % (AUTO) 17 % (12-44); MEAN CORPUSCULAR HEMOGLOBIN 34 pg (25-34); MEAN CORPUSCULAR HGB CONC 33 g/dL (32-36); MEAN CORPUSCULAR VOLUME 102 fL (80-99); MEAN PLATELET VOLUME 10.6 fL (9.0-12.2); MONOCYTES # (AUTO) 0.6 10^3/uL (0.0-1.0); MONOCYTES % (AUTO) 9 % (0-12); NEUTROPHILS # (AUTO) 4.7 10^3/uL (1.8-7.8); NEUTROPHILS % (AUTO) 70 % (42-75); PLATELET COUNT 173 10^3/uL (130-400); WHITE BLOOD COUNT 6.8 10^3/uL (4.3-11.0)
[2021-01-08 05:16] LABS: ALBUMIN 3.1 GM/DL (3.2-4.5); POTASSIUM 4.4 MMOL/L (3.6-5.0)
[2021-01-08 05:17] LABS: CALCIUM 9.1 MG/DL (8.5-10.1)
[2021-01-08 05:19] LABS: TOTAL PROTEIN 6.5 GM/DL (6.4-8.2)
[2021-01-08 05:20] LABS: BILIRUBIN,TOTAL 0.8 MG/DL (0.1-1.0)
[2021-01-08] MEDS: KCL 20 MEQ TAB (K-DUR) PO SCH (05:21)
[2021-01-08] MEDS: POTASSIUM CL 10MEQ/50ML IVPB 50 ML IV SCH (05:21)
[2021-01-08] MEDS: CATHETER FLUSH 10 ML SYR IV SCH ×3 (05:21→22:35)
[2021-01-08] MEDS: MAGNESIUM 1 GM/100 ML IVPB 100 ML IV SCH (05:21)
[2021-01-08 05:22] LABS: CREATININE SERUM 1.05 MG/DL (0.60-1.30)
[2021-01-08 05:22] LABS: ABG BASE EXCESS 3.5 MMOL/L (-2.5-2.5); ABG OXYGEN SATURATION 98 % (94-100); ABG PCO2 62 MMHG (35-45); ABG PO2 103 MMHG (79-93); ABG TCO2 31.6 MMOL/L (21.0-31.0)
[2021-01-08 05:23] LABS: ALLENS TEST YES-POS; INSPIRED O2 50% BIPAP; VENTILATOR NO
[2021-01-08 05:24] LABS: PATIENT TEMP 36.4
[2021-01-08 05:25] LABS: ABG PH 7.29 (7.37-7.43)
[2021-01-08 05:54] LABS: PHOSPHORUS 3.2 MG/DL (2.3-4.7)
[2021-01-08 05:56] LABS: MAGNESIUM 1.9 MG/DL (1.6-2.4)
[2021-01-08] MEDS: CYANOCOBALAMIN 1,000 MCG (VITAMIN B-12) TABLET PO SCH (06:28)
[2021-01-08] MEDS: VENlafaxine XR 75 MG (EFFEXOR XR) CAP PO SCH (06:28)
[2021-01-08] MEDS ORDERED: LIDOCAINE UROJET 2% GEL 10 ML PKG ONE (06:35)
[2021-01-08] MEDS: VITAMIN D3 25 MCG (1,000 UNITS) TABLET PO SCH (08:07)
[2021-01-08] MEDS: meTOprolol TARTRATE 50 MG (LOPRESSOR) TAB PO SCH ×2 (08:07→20:04)
[2021-01-08] MEDS: GABAPENTIN 300 MG (NEURONTIN) CAP PO SCH ×3 (08:07→20:03)
[2021-01-08] MEDS: MICONAZOLE 2% POWDER (DESENEX AF) 90 GM TOP SCH ×2 (08:07→20:07)
[2021-01-08] MEDS: ALLOPURINOL 100 MG (ZYLOPRIM) TAB PO SCH (08:07)
--- NOTE | 2021-01-08 08:58 | Diagnostic Imaging Report ---
Portable erect AP chest at 537 hours. INDICATION: Hypoxia. FINDINGS: The heart is stable in size when compared to the prior exam of 01/03/2021. In the interval since the prior study, a few thin strands of atelectasis have developed in the left lung base and perhaps in the right perihilar region. The lungs are otherwise generally clear. The mediastinum is not widened. The osseous structures are intact. IMPRESSION: A few thin strands of atelectasis have developed in both lungs. The overall appearance of the chest is otherwise stable. Dictated by: Dictated on workstation # [id number]
--- NOTE | 2021-01-08 09:23 | Progress Note - Cardiology ---
Cardiology SOAP Progress Note Subjective: Sitting up in bed Feels SOB is improved from yesterday No c/o CP or palpitations Objective: I&O/Vital Signs 01/08/21 01/08/21 01/08/21 01/09/21 21:31 22:00 23:00 00:00 Pulse 107 95 91 85 Resp 20 18 20 19 B/P (MAP) 83/44 (60) 93/55 (68) 87/47 (60) Pulse Ox 97 92 95 90 O2 Delivery Vapotherm Vapotherm Vapotherm O2 Flow Rate 50.00 20.00 20.00 20.00 60.00 60.00 60.00 01/09/21 01/09/21 01/09/21 01/09/21 00:02 00:02 00:04 01:00 Temp 36.8 Pulse 89 O2 Delivery NIV Bilevel NIV Bilevel O2 Flow Rate 50.00 FiO2 50 01/09/21 01/09/21 01/09/21 01/09/21 01:00 01:53 02:00 02:13 Pulse 89 92 89 72 Resp 17 16 12 15 B/P (MAP) 95/58 (69) 121/63 (77) 92/52 (63) Pulse Ox 96 91 95 98 O2 Delivery NIV Bilevel NIV Bilevel NIV Bilevel O2 Flow Rate 50.00 50.00 50.00 50.00 01/09/21 01/09/21 01/09/21 01/09/21 03:00 03:04 04:00 04:48 Temp 36.5 Pulse 98 91 Resp 15 16 B/P (MAP) 109/62 (73) 107/59 (70) Pulse Ox 93 95 O2 Delivery NIV Bilevel NIV Bilevel NIV Bilevel O2 Flow Rate 50.00 50.00 FiO2 50 01/09/21 01/09/21 01/09/21 01/09/21 05:00 06:00 07:09 07:45 Temp 36.8 Pulse 92 90 90 Resp 16 17 16 B/P (MAP) 100/58 (73) 96/55 (69) Pulse Ox 94 94 93 O2 Delivery NIV Bilevel NIV Bilevel O2 Flow Rate 50.00 50.00 35.00 01/08/21 23:59 Intake Total 690 ml Output Total 4000 ml Balance -3310 ml Weight (Pounds): 358 Weight (Ounces): 6.0 Weight (Calculated Kilograms): 162.560483 Constitutional: AAO x 3, well-nourished, other Respiratory: chest expansion is symmetric, chest is bilaterally symmetric, other (good air entry) Cardiovascular: regular rate-rhythm, S1 and S2 Gastrointestional: soft, round Extremities: other (mild bilat LE swelling) Neurologic/Psychiatric: grossly intact Skin: No rash on exposed areas, No ulcerations on exposed areas Results/Procedures: Labs Laboratory Tests 01/09/21 04:10: White Blood Count 7.6, Red Blood Count 4.18L, Hemoglobin 13.9, Hematocrit 42, Mean Corpuscular Volume 100H, Mean Corpuscular Hemoglobin 33, Mean Corpuscular Hemoglobin Concent 33, Red Cell Distribution Width 13.2, Platelet Count 197, Mean Platelet Volume 11.3, Immature Granulocyte % (Auto) 0, Neutrophils (%) (Auto) 78H, Lymphocytes (%) (Auto) 11L, Monocytes (%) (Auto) 8, Eosinophils (%) (Auto) 3, Basophils (%) (Auto) 0, Neutrophils # (Auto) 5.9, Lymphocytes # (Auto) 0.8L, Monocytes # (Auto) 0.6, Eosinophils # (Auto) 0.2, Basophils # (Auto) 0.0, Immature Granulocyte # (Auto) 0.0, Sodium Level 140, Potassium Level 4.3, Chloride Level 101, Carbon Dioxide Level 27, Anion Gap 12, Blood Urea Nitrogen 19H, Creatinine 1.15, Estimat Glomerular Filtration Rate 63, BUN/Creatinine Ratio 17, Glucose Level 114H, Calcium Level 9.2, Corrected Calcium 9.9, Phosphorus Level 2.4, Magnesium Level 1.8, Total Bilirubin 0.9, Aspartate Amino Transf (AST/SGOT) 27, Alanine Aminotransferase (ALT/SGPT) 10, Alkaline Phospha tase 103, Total Protein 6.4, Albumin 3.1L 01/09/21 04:44: Blood Gas Puncture Site RR, Blood Gas Patient Temperature 36.5, Arterial Blood pH 7.42, Arterial Blood Partial Pressure CO2 51H, Arterial Blood Partial Pressure O2 95H, Arterial Blood HCO3 33H, Arterial Blood Total CO2 34.2H, Arterial Blood Oxygen Saturation 99, Arterial Blood Base Excess 7.8H, Zain Test YES-POS, Blood Gas Ventilator Setting NO, Blood Gas Inspired Oxygen 50% BIPAP Microbiology 01/05/21 MRSA Screen - Final, Complete MRSA not isolated 01/03/21 Blood Culture - Preliminary, Resulted No growth A/P: Assessment: Progressive SOB, necessitating transfer to ICU on 01/05/21 - due to PE (large wedge-shaped defects bilaterally, consistent with high probability for pulmonary embolism per VQ lung scan of 01-04-21) - Echo on 01/04/21: LVEF 55-65%, PASP 30-35 mmHg Acute on chronic renal insufficiency: improving Mildly elevated troponin - probable type 2 [place] secondary to transient hypoxia DVT - Partially occlusive deep vein thrombus within the mid superficial femoral artery extending into the left popliteal artery and calf vessels of the left lower extremity. No sonographic evidence of deep venous thrombosis in the right lower extremity. LAILA - CPAP tx HTN HLD, by history Morbid obesity - BMI approx 54 Chronic joint pain - h/o shoulder and bilat knee pain H/o anxiety/depression Plan: Continue anticoag and current regimen Replace electrolytes as indicated Would likely need lifetime anticoag I discussed his CV issues with him and answered questions JYOTSNA COOPER Jan 08, 2021 09:23
--- NOTE | 2021-01-08 09:42 | Physical Therapy Daily Note ---
PT Daily Note-Current Subjective Patient in bed pre tx, agrees to PT, states he has some moderate back pain. Appearance Patient in recliner post tx with nurse call, phone, tray, all needs met. Mental Status Patient Orientation: Person, Place, Situation Attachments: Oxygen, Daniel Catheter Transfers SCALE: Activities may be completed with or without assistive devices. 0-Oxybbuhtqr-xccdhnh completes the activity by him/herself with no assistance from a helper. 5-Set-up or Clean-up Assistance-helper sets up or cleans up; patient completes activity. [place] assists only prior to or following the activity. 4-Supervision or Touching Assistance-helper provides verbal cues and/or touching/steadying and/or contact guard assistance as patient completes activity. Assistance may be provided throughout the activity or intermittently. 3-Partial/Moderate Assistance-helper does LESS THAN HALF the effort. [place] lifts, holds or supports trunk or limbs, but provides less than half the effort. 2-Substantial/Maximal Assistance-helper does MORE THAN HALF the effort. [place] lifts or holds trunk or limbs and provides more than half the effort. 0-Uixbgjhkp-vfiotg does ALL the effort. Patient does none of the effort to complete the activity. Or, the assistance of 2 or more helpers is required for the patient to complete the activity. If activity was not attempted, code reason: 7-Patient Refused. 9-Not Applicable-not attempted and the patient did not perform the activity before the current illness, exacerbation or injury. 10-Not Attempted due to Environmental Limitations-(lack of equipment, weather restraints, etc.). 88-Not Attempted due to Medical Conditions or Safety Concerns. 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 Time Frame: Jan 14, 2021 Roll Left & Right (QC): 4 Sit to Lying (QC): 4 Lying-Sitting on Side/Bed(QC): 4 Sit to Stand (QC): 4 Chair/Eqf-rq-Akgqa Xfer(QC): 4 Walk 10 feet (QC): 4 Walk 50ft with 2 Turns (QC): 4 PT Plan Problem List Problem List: Activity Tolerance, Functional Strength, Safety, Balance, Gait, Transfer, Bed Mobility, ROM Treatment/Plan Treatment Plan: Continue Plan of Care Treatment Plan: Bed Mobility, Education, Functional Activity Dash, Functional Strength, Gait, Safety, Therapeutic Exercise, Transfers Treatment Duration: Jan 14, 2021 Frequency: 6 times per week Estimated Hrs Per Day: .25 hour per day Patient and/or Family Agrees t: Yes Safety Risks/Education Patient Education: Gait Training, Transfer Techniques, Correct Positioning, Safety Issues Teaching Recipient: Patient Teaching Methods: Demonstration, Discussion Response to Teaching: Reinforcement Needed Time/GCodes Time In: 913 Time Out: 929 Total Billed Treatment Time: 16 Total Billed Treatment 1 visit FA ASTRID DUFFY PT Jan 08, 2021 09:42
--- NOTE | 2021-01-08 10:18 | Tele-ICU Progress Note ---
Subjective Date Seen by a Provider: Jan 08, 2021 Time Seen by a Provider: 10:18 Sepsis Event Evaluation Height, Weight, BMI Height: 5'10.00" Weight: 358lbs. 6.0oz. [id number]; 53.20 BMI Method:Stated Exam Exam Patient acknowledged, consented, and participated in this virtual visit which was conducted using real time audio/video Vital Signs Date Time Temp Pulse Resp B/P (MAP) Pulse Ox O2 Delivery O2 Flow Rate FiO2 01/08/21 10:00 Vapotherm 25.00 70 01/08/21 09:00 92 35 112/57 (75) 94 NIV Bilevel 50.00 01/08/21 08:00 96 23 112/49 (70) 95 NIV Bilevel 50.00 01/08/21 07:27 97 NIV Bilevel 20.00 70 01/08/21 07:25 36.8 01/08/21 07:00 90 01/08/21 07:00 86 18 135/93 (107) 98 NIV Bilevel 50.00 01/08/21 06:52 93 Vapotherm 25.00 70 01/08/21 06:00 75 10 104/58 (71) 98 NIV Bilevel 50.00 01/08/21 05:00 79 16 105/89 (99) 98 NIV Bilevel 50.00 01/08/21 04:00 73 100/65 (77) 96 NIV Bilevel 50.00 01/08/21 03:07 36.0 01/08/21 03:07 NIV Bilevel 50 01/08/21 03:00 71 14 97/59 (73) 93 NIV Bilevel 50.00 01/08/21 02:25 71 16 93 50.00 01/08/21 02:23 93 NIV Bilevel 50 01/08/21 02:00 71 95/64 (77) 93 NIV Bilevel 50.00 01/08/21 01:00 71 01/08/21 01:00 71 14 99/62 (74) 92 NIV Bilevel 50.00 01/08/21 00:05 36.2 01/08/21 00:00 NIV Bilevel 50 01/08/21 00:00 70 21 98/60 (70) 93 NIV Bilevel 50.00 01/07/21 23:20 NIV Bilevel 50.00 01/07/21 23:00 76 12 106/58 (74) 92 Vapotherm 20.00 60.00 01/07/21 22:53 74 17 93 50.00 01/07/21 22:51 92 NIV Bilevel 50 01/07/21 22:00 82 18 129/42 (71) 89 Vapotherm 20.00 60.00 01/07/21 21:00 107 29 127/69 (82) 95 Vapotherm 20.00 60.00 01/07/21 20:28 Vapotherm 20.00 60 01/07/21 20:00 113 14 140/74 (83) Vapotherm 20.00 60.00 01/07/21 19:17 37.2 112 24 133/72 (92) 90 Vapotherm 20.00 60.00 01/07/21 19:00 112 01/07/21 18:33 93 Vapotherm 20.00 60 01/07/21 18:00 93 21 127/67 (87) 93 Vapotherm 20.00 60.00 01/07/21 17:00 92 20 125/75 (92) 94 Vapotherm 20.00 60.00 01/07/21 16:14 36.8 94 Vapotherm 20.00 60.00 01/07/21 16:00 93 Vapotherm 20.00 60 01/07/21 16:00 96 20 128/88 (101) 95 Vapotherm 25.00 75.00 01/07/21 15:00 84 144/87 (106) 96 Vapotherm 25.00 75.00 01/07/21 14:24 92 Vapotherm 25.00 75 01/07/21 14:00 75 145/78 (100) 93 Vapotherm 25.00 75.00 01/07/21 13:00 73 01/07/21 13:00 73 25 103/51 (68) 92 Vapotherm 25.00 75.00 01/07/21 12:39 36.8 01/07/21 12:00 75 24 126/73 (90) 94 Vapotherm 25.00 75.00 01/07/21 12:00 95 Vapotherm 25.00 75 01/07/21 11:00 80 18 111/61 (78) 93 Vapotherm 25.00 75.00 I & O 01/08/21 07:00 Intake Total 1390 ml Output Total 1150 ml Balance 240 ml Height & Weight Height: 5'10.00" Weight: 358lbs. 6.0oz. 162.623646hv; 53.20 BMI Method:Stated General Appearance: No Apparent Distress, WD/WN, Chronically ill, Obese, Other (Lethargic and confused) HEENT: PERRL/EOMI, Normal ENT Inspection, Pharynx Normal, Moist Mucous Membranes Neck: Full Range of Motion, Normal Inspection, Non Tender Respiratory: Lungs Clear, Normal Breath Sounds, Decreased Breath Sounds Cardiovascular: Regular Rate, Rhythm, No Edema, No Gallop, No JVD, No Murmur, Normal Peripheral Pulses Capillary Refill: Less Than 3 Seconds Peripheral Pulses: 1+ Dorsalis Pedis (R) (see free text), 1+ Left Dors-Pedis (L) Extremity: Normal Capillary Refill, Normal Inspection, Normal Range of Motion, Non Tender, No Calf Tenderness, Pedal Edema Neurologic/Psychiatric: Alert, Disoriented Skin: Normal Color, Warm/Dry Lymphatic: No Adenopathy Results Lab Laboratory Tests 01/07/21 04:31 01/08/21 04:13 Assessment/Plan Assessment/Plan (Tele-ICU Physician , Progress Note ) Available chart/ vitals / labs / Images reviewed Video assessment done using teleICU camera, rest of exam as per RN Discussed with RN , EXAM PER RN Events overnight : on bipap Afebrile I/O = neg 400 Drips: Pressors: , hemodynamically stable Consultants: Hospital course: 01/03 70 yr male DX:Hypoxia, elevated d-dimer 01/03 Imaging suggests araceli PE , DVT left LE 01/05 Desaturating and increased Fi02 req. BiPAP. VSS O2 sat 93% on 13/07, 50%. 01/07 - BiPAP. 5, 50%. night , VT 25L 75% 01/08 VT 20L 70% , urinary retention - jackson plced A/P Bilteral PE - (large wedge-shaped defects bilaterally, consistent with high probability for pulmonary embolism per VQ lung scan of 01-04-21) - Echo on 01/04/21: LVEF 55-65%, PASP 30-35 mmHg -AC with lovenox 150 bid Acute resp failure , hypoxic and hypercapnic ( acute on chronic - on BiPAP /5, 50%.-- > mild resp acidosis -> increased to 16/8 on 01/07 - still persistent acidosis - will cont to use BIPAP at night and at daytime naps , increse patient's activity level as tolerates , decrease sedative meds , might need diuresis -daytime VT 20L 70% - follow cxr 01/08 - atelectasis Acute on chronic renal insufficiency: improving Mildly elevated troponin - probable type 2 [place] secondary to transient hypoxia - as per cards on beta blockers DVT LEFT - AC lovenox - to change to ? NOAC LAILA - PSG 2015 ( wt 266 lb then as per report , now 370 lb ) REM AHI 49 , totl AHI 5,5 - titrated CPAP 7 cm - CPAP tx --? home setting and compliance - PROBABLY NEED TO REPEAT PSG Pulm HTN - mst likely to combination of above -PASP 30-35 mmHg Super morbid obesity with a BMI of 52.7 Chronic joint pain - h/o shoulder and bilat knee pain H/o anxiety/depression Keppra for tremors ? - recent - ? attributes to co2 retention Urinary retention - no blood clots , jackson placed 01/08 Lines : (Central Line Necessity Reviewed) Jackson: 01/08 OG: Nutrition: PO Analgesia: Anxiety/ delirium VTE Prophylaxis: lynn full dose Stress Ulcer Prophylaxis: na Plans in collaboration with bedside consultants and IM MDs. Discussed with RN to reach out if any questions or concerns A total of 33 minutes of critical care time was devoted to this patient today, required to treat and/or prevent further deterioration of critical care condition ( as above) . ELIAS BRAR MD Jan 08, 2021 10:18
--- NOTE | 2021-01-08 10:23 | Progress Note ---
Objective Exam Last Set of Vital Signs Vital Signs Date Time Temp Pulse Resp B/P (MAP) Pulse Ox O2 Delivery O2 Flow Rate FiO2 01/08/21 10:00 Vapotherm 25.00 70 01/08/21 09:00 92 35 112/57 (75) 94 01/08/21 07:25 36.8 Capillary Refill : Less Than 3 Seconds I&O Intake and Output 01/08/21 00:00 Intake Total 1440 ml Output Total 1000 ml Balance 440 ml Intake Oral 1440 ml Output Urine Total 1000 ml Results/Procedures Lab Laboratory Tests 01/08/21 04:13: White Blood Count 6.8, Red Blood Count 4.38, Hemoglobin 14.7, Hematocrit 45, Mean Corpuscular Volume 102H, Mean Corpuscular Hemoglobin 34, Mean Corpuscular Hemoglobin Concent 33, Red Cell Distribution Width 13.2, Platelet Count 173, Mean Platelet Volume 10.6, Immature Granulocyte % (Auto) 0, Neutrophils (%) (Auto) 70, Lymphocytes (%) (Auto) 17, Monocytes (%) (Auto) 9, Eosinophils (%) (Auto) 4, Basophils (%) (Auto) 0, Neutrophils # (Auto) 4.7, Lymphocytes # (Auto) 1.2, Monocytes # (Auto) 0.6, Eosinophils # (Auto) 0.3, Basophils # (Auto) 0.0, Immature Granulocyte # (Auto) 0.0, Sodium Level 141, Potassium Level 4.4, C hloride Level 104, Carbon Dioxide Level 25, Anion Gap 12, Blood Urea Nitrogen 13, Creatinine 1.05, Estimat Glomerular Filtration Rate 70, BUN/Creatinine Ratio 12, Glucose Level 103, Calcium Level 9.1, Corrected Calcium 9.8, Phosphorus Level 3.2, Magnesium Level 1.9, Total Bilirubin 0.8, Aspartate Amino Transf (AST/SGOT) 21, Alanine Aminotransferase (ALT/SGPT) 7, Alkaline Phosphatase 96, Total Protein 6.5, Albumin 3.1L 01/08/21 05:15: Blood Gas Puncture Site RR, Blood Gas Patient Temperature 36.4, Arterial Blood pH 7.29*L, Arterial Blood Partial Pressure CO2 62H, Arterial Blood Partial Pressure O2 103H, Arterial Blood HCO3 30H, Arterial Blood Total CO2 31.6H, Arterial Blood Oxygen Saturation 98, Arterial Blood Base Excess 3.5H, Zain Test YES-POS, Blood Gas Ventilator Setting NO, Blood Gas Inspired Oxygen 50% BIPAP Microbiology 01/05/21 MRSA Screen - Final, Complete MRSA not isolated 01/03/21 Blood Culture - Preliminary, Resulted No growth Radiology NAME: ANGEL NATHAN [facility] REC#: [id number] PT STATUS: ADM IN : 1950 PHYSICIAN: BEVERLY RAMIREZ MD ADMIT DATE: 01/04/21 Signed Date of Exam:01/03/21 CHEST 1 VIEW, AP/PA ONLY INDICATION: sepsis COMPARISON: 08/23/2018 FINDINGS: Single frontal view of the chest demonstrates mild cardiomegaly. Pulmonary vasculature is within normal limits. The lungs are well aerated and clear. No large pleural effusion or pneumothorax is seen. The visualized osseous structures show no acute abnormalities. IMPRESSION: 1. Mild cardiomegaly, but no evidence of failure or focal infiltrate. Dictated by: Dictated on workstation # [id number] Dict: 01/04/2138 Trans: 01/04/21 [id number] [id number] Interpreted by: MARILEE MONCADA MD Electronically signed by: MARILEE MONCADA MD 01/04/21 0844 NAME: ANGEL NATHAN [facility] REC#: [id number] PT STATUS: ADM IN : 1950 PHYSICIAN: YASIR MELARA MD ADMIT DATE: 01/04/21 Signed Date of Exam:01/04/21 US VENOUS LOWER EXT LEOBARDO PROCEDURE: US Venous Lower Ext Leobardo. TECHNIQUE: Multiple real-time grayscale images were obtained over the lower extremities in various projections, bilaterally. Additional duplex Doppler and color Doppler images were also obtained. INDICATION: Lower extremity pain and edema. Elevated D-dimer. COMPARISON: 04/28/2012. FINDINGS: There is partially occlusive deep vein thrombus within the mid superficial femoral artery extending through the left popliteal artery and calf vessels of the left lower extremity. The left common femoral and profunda femoris arteries are normal with normal compressibility and color Doppler filling. The right common femoral vein, femoral vein, deep femoral vein, and popliteal vein are normal in appearance. These vessels show normal compressibility, color flow and doppler augmentation. The visualized deep calf veins demonstrate no distinct intraluminal thrombus. IMPRESSION: 1. Partially occlusive deep vein thrombus within the mid superficial femoral artery extending into the left popliteal artery and calf vessels of the left lower extremity. 2. No sonographic evidence of deep venous thrombosis in the right lower extremity. Called to Felix at 8:46 a.m. by cvb. Dictated by: Dictated on workstation # [id number] Dict: 01/04/21 0837 Trans: 01/04/2148 [id number] [id number] Interpreted by: KRYSTEN LINO DO Electronically signed by: KRYSTEN LINO DO 01/04/2148 NAME: ANGEL NATHAN [facility] REC#: [id number] PT STATUS: ADM IN : 1950 PHYSICIAN: MEDINA MINA MD ADMIT DATE: 01/04/21 Draft Date of Exam:01/04/21 LUNG SCAN PERFUSION INDICATION: Shortness of breath. TECHNIQUE: Patient was administered 5.2 mCi technetium 99m MAA intravenously and imaging over the chest was performed in multiple obliquities. FINDINGS: There appear to be bilateral wedge-shaped perfusion defects. A large wedge-shaped defect in the upper lobe on the right is seen. There also appear to be at least two large defects in the left lobe in upper and lower portions. IMPRESSION: Large wedge-shaped defects bilaterally, consistent with high probability for pulmonary embolism. Dictated on workstation # [id number] Dict: 01/04/21 1314 Trans: 01/04/21 1325 [id number] Interpreted by: SILVANA MAY MD Electronically signed by: Assessment/Plan Assessment/Plan (1) Acute and chronic respiratory failure with hypercapnia Status: Acute Assessment & Plan: 01/07: MAT protocol, continue to titrate as tolerated (2) Left leg DVT Status: Acute Assessment & Plan: 01/07: Patient on tx lovenox, V/Q scan with high probability of PE Qualifiers: Qualified Codes: I82.402 - Acute embolism and thrombosis of unspecified deep veins of left lower extremity (3) Obesity hypoventilation syndrome Status: Acute (4) LAILA on CPAP Status: Acute Assessment & Plan: 01/07: patient to bring home CPAP to hospital (5) Elevated d-dimer Status: Acute (6) Adult BMI 50.0-59.9 kg/sq m Status: Acute AYE DE LA VEGA MD Jan 08, 2021 10:23
[2021-01-08] MEDS: MIRABEGRON 25 MG TAB (MYRBETRIQ) PO SCH (11:08)
--- NOTE | 2021-01-08 12:37 | Progress Note - Cardiology ---
Cardiology SOAP Progress Note Subjective: Gen malaise present No cp Shortness of breath persistent No palp or syncope No n/v/d Objective: I&O/Vital Signs 01/08/21 01/08/21 01/08/21 01/08/21 01:00 01:00 02:00 02:23 Pulse 71 71 71 Resp 14 B/P (MAP) 99/62 (74) 95/64 (77) Pulse Ox 92 93 93 O2 Delivery NIV Bilevel NIV Bilevel NIV Bilevel O2 Flow Rate 50.00 50.00 FiO2 50 01/08/21 01/08/21 01/08/21 01/08/21 02:25 03:00 03:07 03:07 Temp 36.0 Pulse 71 71 Resp 16 14 B/P (MAP) 97/59 (73) Pulse Ox 93 93 O2 Delivery NIV Bilevel NIV Bilevel O2 Flow Rate 50.00 50.00 FiO2 50 01/08/21 01/08/21 01/08/21 01/08/21 04:00 05:00 06:00 06:52 Pulse 73 79 75 Resp 16 10 B/P (MAP) 100/65 (77) 105/89 (99) 104/58 (71) Pulse Ox 96 98 98 93 O2 Delivery NIV Bilevel NIV Bilevel NIV Bilevel Vapotherm O2 Flow Rate 50.00 50.00 50.00 25.00 FiO2 70 01/08/21 01/08/21 01/08/21 01/08/21 07:00 07:00 07:25 07:27 Temp 36.8 Pulse 86 90 Resp 18 B/P (MAP) 135/93 (107) Pulse Ox 98 97 O2 Delivery NIV Bilevel NIV Bilevel O2 Flow Rate 50.00 20.00 FiO2 70 01/08/21 01/08/21 01/08/21 01/08/21 08:00 09:00 10:00 10:00 Pulse 96 92 87 Resp 23 35 12 B/P (MAP) 112/49 (70) 112/57 (75) 118/52 (74) Pulse Ox 95 94 93 O2 Delivery NIV Bilevel NIV Bilevel Vapotherm NIV Bilevel O2 Flow Rate 50.00 50.00 25.00 50.00 FiO2 70 01/08/21 01/08/21 01/08/21 11:00 11:55 12:00 Temp 36.4 Pulse 83 78 Resp 20 23 B/P (MAP) 129/86 (100) 126/74 (91) Pulse Ox 92 95 O2 Delivery NIV Bilevel NIV Bilevel O2 Flow Rate 50.00 50.00 01/08/21 00:00 Intake Total 620 ml Output Total 475 ml Balance 145 ml Weight (Pounds): 358 Weight (Ounces): 6.0 Weight (Calculated Kilograms): 162.194655 Constitutional: AAO x 3, well-nourished, other Respiratory: chest expansion is symmetric, chest is bilaterally symmetric, other (good air entry) Cardiovascular: regular rate-rhythm, S1 and S2 Gastrointestional: soft, round Extremities: other (mild bilat LE swelling) Neurologic/Psychiatric: grossly intact Skin: No rash on exposed areas, No ulcerations on exposed areas Results/Procedures: Labs Laboratory Tests 01/08/21 04:13: White Blood Count 6.8, Red Blood Count 4.38, Hemoglobin 14.7, Hematocrit 45, Mean Corpuscular Volume 102H, Mean Corpuscular Hemoglobin 34, Mean Corpuscular Hemoglobin Concent 33, Red Cell Distribution Width 13.2, Platelet Count 173, Mean Platelet Volume 10.6, Immature Granulocyte % (Auto) 0, Neutrophils (%) (Au to) 70, Lymphocytes (%) (Auto) 17, Monocytes (%) (Auto) 9, Eosinophils (%) (Auto) 4, Basophils (%) (Auto) 0, Neutrophils # (Auto) 4.7, Lymphocytes # (Auto) 1.2, Monocytes # (Auto) 0.6, Eosinophils # (Auto) 0.3, Basophils # (Auto) 0.0, Immature Granulocyte # (Auto) 0.0, Sodium Level 141, Potassium Level 4.4, Chloride Level 104, Carbon Dioxide Level 25, Anion Gap 12, Blood Urea Nitrogen 13, Creatinine 1.05, Estimat Glomerular Filtration Rate 70, BUN/Creatinine Ratio 12, Glucose Level 103, Calcium Level 9.1, Corrected Calcium 9.8, Phosphorus Level 3.2, Magnesium Level 1.9, Total Bilirubin 0.8, Aspartate Amino Transf (AST/SGOT) 21, Alanine Aminotransferase (ALT/SGPT) 7, Alkaline Phosphatase 96, Total Protein 6.5, Albumin 3.1L 01/08/21 05:15: Blood Gas Puncture Site RR, Blood Gas Patient Temperature 36.4, Arterial Blood pH 7.29*L, Arterial Blood Partial Pressure CO2 62H, Arterial Blood Partial Pressure O2 103H, Arterial Blood HCO3 30H, Arterial Blood Total CO2 31.6H, Arterial Blood Oxygen Saturation 98, Arterial Blood Base Excess 3.5H, Zain Test YES-POS, Blood Gas Ventilator Setting NO, Blood Gas Inspired Oxygen 50% BIPAP Microbiology 01/05/21 MRSA Screen - Final, Complete MRSA not isolated 01/03/21 Blood Culture - Preliminary, Resulted No growth Laboratory Tests 01/07/21 04:31 01/08/21 04:13 A/P: Assessment: Progressive SOB, necessitating transfer to ICU on 01/05/21 - due to PE (large wedge-shaped defects bilaterally, consistent with high probability for pulmonary embolism per VQ lung scan of 01-04-21) - Echo on 01/04/21: LVEF 55-65%, PASP 30-35 mmHg Acute on chronic renal insufficiency: improving Mildly elevated troponin - probable type 2 [place] secondary to transient hypoxia DVT - Partially occlusive deep vein thrombus within the mid superficial femoral artery extending into the left popliteal artery and calf vessels of the left lower extremity. No sonographic evidence of deep venous thrombosis in the right lower extremity. LAILA - CPAP tx HTN HLD, by history Morbid obesity - BMI approx 54 Chronic joint pain - h/o shoulder and bilat knee pain H/o anxiety/depression Plan: Continue anticoag and current regimen Diuretics as needed. Furosemide today Replace electrolytes as indicated Would likely need lifetime anticoag I discussed his CV issues with him and answered questions TARA BLANCHARD MD FACP FAC CCDS Jan 08, 2021 12:37
[2021-01-08] MEDS ORDERED: FUROSEMIDE 40 MG/4 ML INJ (LASIX) IVP ONE (12:45)
[2021-01-08] MEDS: PANTOPRAZOLE 40 MG (PROTONIX) TAB PO SCH (20:03)
[2021-01-08] MEDS: clonazePAM 0.5 MG (KlonoPIN) TAB PO SCH (20:03)
[2021-01-08] MEDS: traZODone 150 MG (DESYREL) TABLET PO SCH (20:04)
--- NOTE | 2021-01-08 21:23 | Progress Note ---
Subjective Subjective/Events-last exam Patient states that he feels better. Up sitting in chair this AM. Tolerating PO diet. Review of Systems Pulmonary: Dyspnea, Cough Cardiovascular: No: Chest Pain, Palpitations, Edema Gastrointestinal: No: Nausea, Vomiting, Abdominal Pain, Diarrhea, Constipation Genitourinary: Incontinence, Retention Neurological: Weakness, Incoordination Objective Exam Last Set of Vital Signs Vital Signs Date Time Temp Pulse Resp B/P (MAP) Pulse Ox O2 Delivery O2 Flow Rate FiO2 01/08/21 20:27 94 Vapotherm 20.00 60 01/08/21 19:57 36.6 110 16 113/82 (92) Capillary Refill : Less Than 3 Seconds I&O Intake and Output 01/08/21 00:00 Intake Total 1440 ml Output Total 1000 ml Balance 440 ml Intake Oral 1440 ml Output Urine Total 1000 ml General: Alert, Oriented X3, Moderate Distress (with minimal exertion) Lungs: Other (end exp wheezing, increased work of breathing with minimal exertion) Heart: Regular Rate, No Murmurs Abdomen: Normal Bowel Sounds, Soft, No Tenderness, No Masses Extremities: No Edema, No Tenderness/Swelling Skin: No Rashes, No Breakdown Neuro: Normal Speech, Sensation Intact, Cranial Nerves 3-12 NL Psych/Mental Status: Mental Status NL, Mood NL Results/Procedures Lab Laboratory Tests 01/08/21 04:13: White Blood Count 6.8, Red Blood Count 4.38, Hemoglobin 14.7, Hematocrit 45, Mean Corpuscular Volume 102H, Mean Corpuscular Hemoglobin 34, Mean Corpuscular Hemoglobin Concent 33, Red Cell Distribution Width 13.2, Platelet Count 173, Mean Platelet Volume 10.6, Immature Granulocyte % (Auto) 0, Neutrophils (%) (Auto) 70, Lymphocytes (%) (Auto) 17, Monocytes (%) (Auto) 9, Eosinophils (%) (Auto) 4, Basophils (%) (Auto) 0, Neutrophils # (Auto) 4.7, Lymphocytes # (Auto) 1.2, Monocytes # (Auto) 0.6, Eosinophils # (Auto) 0.3, Basophils # (Auto) 0.0, Immature Granulocyte # (Auto) 0.0, Sodium Level 141, Potassium Level 4.4, Chloride Level 104, Carbon Dioxide Level 25, Anion Gap 12, Blood Urea Nitrogen 13, Creatinine 1.05, Estimat Glomerular Filtration Rate 70, BUN/Creatinine Ratio 12, Glucose Level 103, Calcium Level 9.1, Corrected Calcium 9.8, Phosphorus Level 3.2, Magnesium Level 1.9, Total Bilirubin 0.8, Aspartate Amino Transf (AST/SGOT) 21, Alanine Aminotransferase (ALT/SGPT) 7, Alkaline Phosphatase 96, Total Protein 6.5, Albumin 3.1L 01/08/21 05:15: Blood Gas Puncture Site RR, Blood Gas Patient Temperature 36.4, Arterial Blood pH 7.29*L, Arterial Blood Partial Pressure CO2 62H, Arterial Blood Partial Pressure O2 103H, Arterial Blood HCO3 30H, Arterial Blood Total CO2 31.6H, Arterial Blood Oxygen Saturation 98, Arterial Blood Base Excess 3.5H, Zain Test YES-POS, Blood Gas Ventilator Setting NO, Blood Gas Inspired Oxygen 50% BIPAP Microbiology 01/05/21 MRSA Screen - Final, Complete MRSA not isolated 01/03/21 Blood Culture - Preliminary, Resulted No growth [facility] [id number] PT STATUS: ADM IN : 1950 PHYSICIAN: BEVERLY RAMIREZ MD ADMIT DATE: 01/04/21 Signed Date of Exam:01/03/21 CHEST 1 VIEW, AP/PA ONLY INDICATION: sepsis COMPARISON: 08/23/2018 FINDINGS: Single frontal view of the chest demonstrates mild cardiomegaly. Pulmonary vasculature is within normal limits. The lungs are well aerated and clear. No large pleural effusion or pneumothorax is seen. The visualized osseous structures show no acute abnormalities. IMPRESSION: 1. Mild cardiomegaly, but no evidence of failure or focal infiltrate. Dictated by: Dictated on workstation # [id number] Dict: 01/04/2138 Trans: 01/04/2144 [id number] Interpreted by: MARILEE MONCADA MD Electronically signed by: MARILEE MONCADA MD 01/04/2144 [facility] [id number] PT STATUS: ADM IN : 1950 PHYSICIAN: YASIR MELARA MD ADMIT DATE: 01/04/21 Signed Date of Exam:01/04/21 US VENOUS LOWER EXT LEOBARDO PROCEDURE: US Venous Lower Ext Leobardo. TECHNIQUE: Multiple real-time grayscale images were obtained over the lower extremities in various projections, bilaterally. Additional duplex Doppler and color Doppler images were also obtained. INDICATION: Lower extremity pain and edema. Elevated D-dimer. COMPARISON: 04/28/2012. FINDINGS: There is partially occlusive deep vein thrombus within the mid superficial femoral artery extending through the left popliteal artery and calf vessels of the left lower extremity. The left common femoral and profunda femoris arteries are normal with normal compressibility and color Doppler filling. The right common femoral vein, femoral vein, deep femoral vein, and popliteal vein are normal in appearance. These vessels show normal compressibility, color flow and doppler augmentation. The visualized deep calf veins demonstrate no distinct intraluminal thrombus. IMPRESSION: 1. Partially occlusive deep vein thrombus within the mid superficial femoral artery extending into the left popliteal artery and calf vessels of the left lower extremity. 2. No sonographic evidence of deep venous thrombosis in the right lower extremity. Called to Felix at 8:46 a.m. by cvb. Dictated by: Dictated on workstation # [id number] Dict: 01/04/2137 Trans: 01/04/21 0848 [id number] [id number] Interpreted by: KRYSTEN LINO DO Electronically signed by: KRYSTEN LINO DO 01/04/2148 NAME: ANGEL NATHAN [facility] REC#: [id number] PT STATUS: ADM IN : 1950 PHYSICIAN: MEDINA MINA MD ADMIT DATE: 01/04/21 Draft Date of Exam:01/04/21 LUNG SCAN PERFUSION INDICATION: Shortness of breath. TECHNIQUE: Patient was administered 5.2 mCi technetium 99m MAA intravenously and imaging over the chest was performed in multiple obliquities. FINDINGS: There appear to be bilateral wedge-shaped perfusion defects. A large wedge-shaped defect in the upper lobe on the right is seen. There also appear to be at least two large defects in the left lobe in upper and lower portions. IMPRESSION: Large wedge-shaped defects bilaterally, consistent with high probability for pulmonary embolism. Dictated on workstation # [id number] Dict: 01/04/21 1314 Trans: 01/04/21 1325 [id number] Interpreted by: SILVANA MAY MD Electronically signed by: Assessment/Plan Assessment/Plan (1) Acute and chronic respiratory failure with hypercapnia Status: Acute Assessment & Plan: 01/07: MAT protocol, continue to titrate as tolerated 01/08: CO2 retention, will continue to titrate as tolerated (2) Left leg DVT Status: Acute Assessment & Plan: 01/07: Patient on tx lovenox, V/Q scan with high probability of PE Qualifiers: Qualified Codes: I82.402 - Acute embolism and thrombosis of unspecified deep veins of left lower extremity (3) Obesity hypoventilation syndrome Status: Acute (4) LAILA on CPAP Status: Acute Assessment & Plan: 01/07: patient to bring home CPAP to hospital (5) Elevated d-dimer Status: Acute (6) Adult BMI 50.0-59.9 kg/sq m Status: Acute AYE DE LA VEGA MD Jan 08, 2021 21:23
[2021-01-09] VITALS (27 sets, daily range): BP systolic 87–145; BP diastolic 47–79
[2021-01-09] MEDS: ENOXAPARIN 300 MG/3 ML (LOVENOX) MULTI-DOSE VIAL SQ SCH ×3 (00:02→23:20)
[2021-01-09] MEDS: RT-ALBUTEROL/IPRATROPIUM 3 ML (DUONEB) VIAL INH SCH ×5 (02:13→21:07)
[2021-01-09 04:55] LABS: ABG BASE EXCESS 7.8 MMOL/L (-2.5-2.5); ABG OXYGEN SATURATION 99 % (94-100); ABG PCO2 51 MMHG (35-45); ABG PH 7.42 (7.37-7.43); ABG PO2 95 MMHG (79-93); ABG TCO2 34.2 MMOL/L (21.0-31.0)
[2021-01-09 04:56] LABS: ALLENS TEST YES-POS; INSPIRED O2 50% BIPAP; PATIENT TEMP 36.5; VENTILATOR NO
[2021-01-09] MEDS: CATHETER FLUSH 10 ML SYR IV SCH ×3 (05:24→23:20)
[2021-01-09 05:31] LABS: BASOPHILS % (AUTO) 0 % (0-10); EOSINOPHILS # (AUTO) 0.2 10^3/uL (0.0-0.3); EOSINOPHILS % (AUTO) 3 % (0-10); HEMATOCRIT 42 % (40-54); HEMOGLOBIN 13.9 g/dL (13.3-17.7); LYMPHOCYTES # (AUTO) 0.8 10^3/uL (1.0-4.0); LYMPHOCYTES % (AUTO) 11 % (12-44); MEAN CORPUSCULAR HEMOGLOBIN 33 pg (25-34); MEAN CORPUSCULAR HGB CONC 33 g/dL (32-36); MEAN CORPUSCULAR VOLUME 100 fL (80-99); MEAN PLATELET VOLUME 11.3 fL (9.0-12.2); MONOCYTES # (AUTO) 0.6 10^3/uL (0.0-1.0); MONOCYTES % (AUTO) 8 % (0-12); NEUTROPHILS # (AUTO) 5.9 10^3/uL (1.8-7.8); NEUTROPHILS % (AUTO) 78 % (42-75); PLATELET COUNT 197 10^3/uL (130-400); WHITE BLOOD COUNT 7.6 10^3/uL (4.3-11.0)
[2021-01-09 06:09] LABS: ALBUMIN 3.1 GM/DL (3.2-4.5); POTASSIUM 4.3 MMOL/L (3.6-5.0)
[2021-01-09 06:10] LABS: CALCIUM 9.2 MG/DL (8.5-10.1)
[2021-01-09 06:12] LABS: TOTAL PROTEIN 6.4 GM/DL (6.4-8.2)
[2021-01-09 06:13] LABS: BILIRUBIN,TOTAL 0.9 MG/DL (0.1-1.0)
[2021-01-09 06:15] LABS: CREATININE SERUM 1.15 MG/DL (0.60-1.30)
[2021-01-09] MEDS: POTASSIUM CL 10MEQ/50ML IVPB 50 ML IV SCH (06:30)
[2021-01-09] MEDS: KCL 20 MEQ TAB (K-DUR) PO SCH (06:30)
[2021-01-09] MEDS: MAGNESIUM 1 GM/100 ML IVPB 100 ML IV SCH (06:30)
[2021-01-09 06:41] LABS: PHOSPHORUS 2.4 MG/DL (2.3-4.7)
[2021-01-09 06:43] LABS: MAGNESIUM 1.8 MG/DL (1.6-2.4)
[2021-01-09] MEDS: VENlafaxine XR 75 MG (EFFEXOR XR) CAP PO SCH (06:56)
[2021-01-09] MEDS: CYANOCOBALAMIN 1,000 MCG (VITAMIN B-12) TABLET PO SCH (06:56)
[2021-01-09] MEDS: VITAMIN D3 25 MCG (1,000 UNITS) TABLET PO SCH (09:08)
--- NOTE | 2021-01-09 09:08 | Progress Note - Cardiology ---
Cardiology SOAP Progress Note Subjective: Bi-pap in place Lethargic this morning Objective: I&O/Vital Signs 01/13/21 01/13/21 01/14/21 01/14/21 21:17 23:20 01:00 03:04 Temp 36.8 Pulse 79 70 Resp 24 B/P (MAP) 143/72 (95) Pulse Ox 95 93 84 O2 Delivery Vapotherm Vapotherm Vapotherm O2 Flow Rate 25.00 25.00 25.00 45.00 FiO2 45 45 01/14/21 01/14/21 01/14/21 03:19 07:00 08:00 Temp 36.9 36.8 Pulse 75 85 86 Resp 22 20 B/P (MAP) 159/60 (93) 141/83 (102) Pulse Ox 94 94 O2 Delivery Vapotherm Vapotherm O2 Flow Rate 25.00 25.00 45.00 45.00 01/14/21 00:00 Intake Total 1728 ml Output Total 1250 ml Balance 478 ml Weight (Pounds): 358 Weight (Ounces): 6.0 Weight (Calculated Kilograms): 162.485897 Constitutional: AAO x 3, well-nourished, other (lethargic) Respiratory: chest expansion is symmetric, chest is bilaterally symmetric, other (good air entry) Cardiovascular: regular rate-rhythm, S1 and S2 Gastrointestional: soft, round Extremities: other (mild bilat LE swelling) Neurologic/Psychiatric: grossly intact Skin: No rash on exposed areas, No ulcerations on exposed areas Results/Procedures: Labs Laboratory Tests 01/14/21 05:08: White Blood Count 5.2, Red Blood Count 3.75L, Hemoglobin 12.5L, Hematocrit 37L, Mean Corpuscular Volume 100H, Mean Corpuscular Hemoglobin 33, Mean Corpuscular Hemoglobin Concent 34, Red Cell Distribution Width 12.8, Platelet Count 198, Mean Platelet Volume 10.2, Immature Granulocyte % (Auto) 1, Neutrophils (%) (Auto) 63, Lymphocytes (%) (Auto) 20, Monocytes (%) (Auto) 10, Eosinophils (%) (Auto) 6, Basophils (%) (Auto) 1, Neutrophils # (Auto) 3.3, Lymphocytes # (Auto) 1.0, Monocytes # (Auto) 0.5, Eosinophils # (Auto) 0.3, Basophils # (Auto) 0.0, Immature Granulocyte # (Auto) 0.0, Sodium Level 139, Potassium Level 4.1, Chloride Level 105, Carbon Dioxide Level 25, Anion Gap 9, Blood Urea Nitrogen 14, Creatinine 1.10, Estimat Glomerular Filtration Rate 66, BUN/Creatinine Ratio 13, Glucose Level 110H, Calcium Level 9.0, Corrected Calcium 9.9, Magnesium Level 1.9, Total Bilirubin 0.5, Aspartate Amino Transf (AST/SGOT) 36H, Alanine Aminotransferase (ALT/SGPT) 19, Alkaline Phosphatase 89, Total Protein 6.0L, Albumin 2.9L Microbiology 01/05/21 MRSA Screen - Final, Complete MRSA not isolated 01/03/21 Blood Culture - Final, Complete No growth A/P: Assessment: Progressive SOB, necessitating transfer to ICU on 01/05/21 - due to PE (large wedge-shaped defects bilaterally, consistent with high probability for pulmonary embolism per VQ lung scan of 01-04-21) - Echo on 01/04/21: LVEF 55-65%, PASP 30-35 mmHg Acute on chronic renal insufficiency: improving Mildly elevated troponin - probable type 2 [place] secondary to transient hypoxia DVT - Partially occlusive deep vein thrombus within the mid superficial femoral artery extending into the left popliteal artery and calf vessels of the left lower extremity. No sonographic evidence of deep venous thrombosis in the right lower extremity. LAILA - CPAP tx HTN HLD, by history Morbid obesity - BMI approx 54 Chronic joint pain - h/o shoulder and bilat knee pain H/o anxiety/depression Plan: Continue anticoag and current regimen Diuretics as needed Replace electrolytes as indicated Would likely need lifetime anticoag I discussed his CV issues with him and answered questions JYOTSNA COOPER Jan 09, 2021 09:08
[2021-01-09] MEDS: meTOprolol TARTRATE 50 MG (LOPRESSOR) TAB PO SCH ×2 (09:09→19:58)
[2021-01-09] MEDS: GABAPENTIN 300 MG (NEURONTIN) CAP PO SCH ×3 (09:09→19:58)
[2021-01-09] MEDS: ALLOPURINOL 100 MG (ZYLOPRIM) TAB PO SCH (09:09)
[2021-01-09] MEDS: MIRABEGRON 25 MG TAB (MYRBETRIQ) PO SCH (09:09)
[2021-01-09] MEDS: MICONAZOLE 2% POWDER (DESENEX AF) 90 GM TOP SCH ×2 (09:09→20:01)
--- NOTE | 2021-01-09 09:36 | Physical Therapy Daily Note ---
PT Daily Note-Current Subjective Patient in bed pre tx, has a bipap on and is very drowsy. Appearance Patient in bed post tx with nurse call, phone, tray, all needs met. Mental Status Patient Orientation: Person, Unable to Assess Attachments: Oxygen Transfers SCALE: Activities may be completed with or without assistive devices. 2-Rkkxiotanr-btikvxe completes the activity by him/herself with no assistance from a helper. 5-Set-up or Clean-up Assistance-helper sets up or cleans up; patient completes activity. Wilmot assists only prior to or following the activity. 4-Supervision or Touching Assistance-helper provides verbal cues and/or touching/steadying and/or contact guard assistance as patient completes activity. Assistance may be provided throughout the activity or intermittently. 3-Partial/Moderate Assistance-helper does LESS THAN HALF the effort. Wilmot lifts, holds or supports trunk or limbs, but provides less than half the effort. 2-Substantial/Maximal Assistance-helper does MORE THAN HALF the effort. Wilmot lifts or holds trunk or limbs and provides more than half the effort. 6-Kwrhmujqk-jhxajg does ALL the effort. Patient does none of the effort to complete the activity. Or, the assistance of 2 or more helpers is required for the patient to complete the activity. If activity was not attempted, code reason: 7-Patient Refused. 9-Not Applicable-not attempted and the patient did not perform the activity before the current illness, exacerbation or injury. 10-Not Attempted due to Environmental Limitations-(lack of equipment, weather restraints, etc.). 88-Not Attempted due to Medical Conditions or Safety Concerns. Exercises Supine Ex: Ankle pumps, Heel Slides, Hip abd/add Supine Reps: 20 Treatments LE ROM Assessment Current Status: Poor Progress Patient is really too drowsy to participate much. He will do a few repetitions and then stop, needs constant encouragement to continue. PT Longterm Goals Longterm Goals PT Longterm Goals Time Frame: Jan 14, 2021 Roll Left & Right (QC): 4 Sit to Lying (QC): 4 Lying-Sitting on Side/Bed(QC): 4 Sit to Stand (QC): 4 Chair/Uvk-zm-Gkoae Xfer(QC): 4 Walk 10 feet (QC): 4 Walk 50ft with 2 Turns (QC): 4 PT Plan Problem List Problem List: Activity Tolerance, Functional Strength, Safety, Balance, Gait, Transfer, Bed Mobility, ROM Treatment/Plan Treatment Plan: Continue Plan of Care Treatment Plan: Bed Mobility, Education, Functional Activity Dash, Functional Strength, Gait, Safety, Therapeutic Exercise, Transfers Treatment Duration: Jan 14, 2021 Frequency: 6 times per week Estimated Hrs Per Day: .25 hour per day Patient and/or Family Agrees t: Yes Safety Risks/Education Patient Education: Correct Positioning, Safety Issues Teaching Recipient: Patient Teaching Methods: Demonstration, Discussion Response to Teaching: Reinforcement Needed Time/GCodes Time In: 909 Time Out: 917 Total Billed Treatment Time: 8 Total Billed Treatment 1 visit EX 18' ASTRID WATSON PT Jan 09, 2021 09:36
[2021-01-09] MEDS ORDERED: FUROSEMIDE 40 MG/4 ML INJ (LASIX) IVP SCH (10:30)
--- NOTE | 2021-01-09 10:46 | Tele-ICU Progress Note ---
Subjective Date Seen by a Provider: Jan 09, 2021 Time Seen by a Provider: 10:46 Sepsis Event Evaluation Height, Weight, BMI Height: 5'10.00" Weight: 358lbs. 6.0oz. 162.946930jd; 53.20 BMI Method:Stated Exam Exam Patient acknowledged, consented, and participated in this virtual visit which was conducted using real time audio/video Vital Signs Date Time Temp Pulse Resp B/P (MAP) Pulse Ox O2 Delivery O2 Flow Rate FiO2 01/09/21 10:44 93 Vapotherm 25.00 50 01/09/21 10:00 80 16 112/71 (85) 94 NIV Bilevel 50.00 01/09/21 09:00 93 17 97/54 (68) 94 NIV Bilevel 50.00 01/09/21 08:00 94 21 97/53 (68) 93 NIV Bilevel 50.00 01/09/21 08:00 NIV Bilevel 50 01/09/21 07:45 36.8 01/09/21 07:09 90 16 93 35.00 01/09/21 07:00 93 16 111/67 (82) 96 NIV Bilevel 50.00 01/09/21 07:00 89 01/09/21 06:00 90 17 96/55 (69) 94 NIV Bilevel 50.00 01/09/21 05:00 92 16 100/58 (73) 94 NIV Bilevel 50.00 01/09/21 04:48 36.5 01/09/21 04:00 91 16 107/59 (70) 95 NIV Bilevel 50.00 01/09/21 03:04 NIV Bilevel 50 01/09/21 03:00 98 15 109/62 (73) 93 NIV Bilevel 50.00 01/09/21 02:13 72 15 98 50.00 01/09/21 02:00 89 12 92/52 (63) 95 NIV Bilevel 50.00 01/09/21 01:53 92 16 121/63 (77) 91 NIV Bilevel 50.00 01/09/21 01:00 89 17 95/58 (69) 96 NIV Bilevel 50.00 01/09/21 01:00 89 01/09/21 00:04 NIV Bilevel 50 01/09/21 00:02 NIV Bilevel 50.00 01/09/21 00:02 36.8 01/09/21 00:00 85 19 87/47 (60) 90 Vapotherm 20.00 60.00 01/08/21 23:00 91 20 93/55 (68) 95 Vapotherm 20.00 60.00 01/08/21 22:00 95 18 83/44 (60) 92 Vapotherm 20.00 60.00 01/08/21 21:31 107 20 97 50.00 01/08/21 21:00 112 22 131/64 (76) 93 Vapotherm 20.00 60.00 01/08/21 20:27 94 Vapotherm 20.00 60 01/08/21 20:00 112 32 101/65 (79) 92 Vapotherm 20.00 60.00 01/08/21 19:57 36.6 110 16 113/82 (92) 94 Vapotherm 20.00 60.00 01/08/21 19:00 105 01/08/21 18:33 Vapotherm 20.00 60.00 01/08/21 18:16 92 17 100/60 (73) 87 Vapotherm 20.00 50.00 01/08/21 18:08 93 Vapotherm 20.00 50 01/08/21 17:00 96 28 119/78 (92) 93 Vapotherm 20.00 50.00 01/08/21 16:00 89 22 107/68 (81) 96 Vapotherm 20.00 50.00 01/08/21 16:00 95 NIV Bilevel 20.00 50 01/08/21 15:49 36.4 01/08/21 15:00 83 19 132/63 (86) 96 Vapotherm 20.00 50.00 01/08/21 14:33 95 Vapotherm 25.00 65 01/08/21 14:00 78 24 104/90 (95) 96 Vapotherm 20.00 50.00 01/08/21 13:00 77 18 110/59 (76) 93 Vapotherm 20.00 70.00 01/08/21 12:41 74 01/08/21 12:00 78 23 126/74 (91) 95 Vapotherm 20.00 70.00 01/08/21 12:00 97 NIV Bilevel 20.00 70 01/08/21 11:55 36.4 01/08/21 11:00 83 20 129/86 (100) 92 Vapotherm 20.00 70.00 I & O 01/09/21 06:59 Intake Total 990 ml Output Total 4345 ml Balance -3355 ml Height & Weight Height: 5'10.00" Weight: 358lbs. 6.0oz. 162.750046qq; 53.20 BMI Method:Stated General Appearance: No Apparent Distress, WD/WN, Chronically ill, Obese, Other (Lethargic and confused) HEENT: PERRL/EOMI, Normal ENT Inspection, Pharynx Normal, Moist Mucous Membranes Neck: Full Range of Motion, Normal Inspection, Non Tender Respiratory: Lungs Clear, Normal Breath Sounds, Decreased Breath Sounds Cardiovascular: Regular Rate, Rhythm, No Edema, No Gallop, No JVD, No Murmur, Normal Peripheral Pulses Capillary Refill: Less Than 3 Seconds Peripheral Pulses: 1+ Dorsalis Pedis (R) (see free text), 1+ Left Dors-Pedis (L) Extremity: Normal Capillary Refill, Normal Inspection, Normal Range of Motion, Non Tender, No Calf Tenderness, Pedal Edema Neurologic/Psychiatric: Alert, Disoriented Skin: Normal Color, Warm/Dry Lymphatic: No Adenopathy Results Lab Laboratory Tests 01/08/21 04:13 01/09/21 04:10 Assessment/Plan Assessment/Plan (Tele-ICU Physician , Progress Note ) Available chart/ vitals / labs / Images reviewed Video assessment done using teleICU camera, rest of exam as per RN Discussed with RN , EXAM PER RN Events overnight : on bipap Afebrile I/O = neg 3500 Drips: Pressors: , hemodynamically stable Consultants: Hospital course: 01/03 70 yr male DX:Hypoxia, elevated d-dimer 01/03 Imaging suggests araceli PE , DVT left LE 01/05 Desaturating and increased Fi02 req. BiPAP. VSS O2 sat 93% on 13/07, 50%. 01/07 - BiPAP. 13/07, 50%. night , VT 25L 75% 01/08 VT 20L 70% , urinary retention - jackson plced 01/09 -BIPAP 35% A/P Bilteral PE - (large wedge-shaped defects bilaterally, consistent with high probability for pulmonary embolism per VQ lung scan of 01-04-21) - Echo on 01/04/21: LVEF 55-65%, PASP 30-35 mmHg -AC with lovenox 150 bid Acute resp failure , hypoxic and hypercapnic ( acute on chronic - on BiPAP 15/10 50% - IMPROVED -mild resp acidosis -> increased to 16/8 on 01/07 - still persistent acidosis - will cont to use BIPAP at night and at daytime naps , increse patient's activity level as tolerates , decrease sedative meds - ABG INPROVED -daytime VT 20L 50% - follow cxr 01/08 - atelectasis- IS attempted Acute on chronic renal insufficiency: improving Mildly elevated troponin - probable type 2 VT secondary to transient hypoxia - as per cards on beta blockers DVT LEFT - AC lovenox - to change to ? NOAC LAILA - PSG 2015 ( wt 266 lb then as per report , now 370 lb ) REM AHI 49 , totl AHI 5,5 - titrated CPAP 7 cm - CPAP tx --? home setting and compliance - PROBABLY NEED TO REPEAT PSG Pulm HTN - mst likely to combination of above -PASP 30-35 mmHg Super morbid obesity with a BMI of 52.7 Chronic joint pain - h/o shoulder and bilat knee pain H/o anxiety/depression Keppra for tremors ? - recent - ? attributes to co2 retention Urinary retention - no blood clots , jackson placed 01/08 Lines : (Central Line Necessity Reviewed) Jackson: 01/08 OG: Nutrition: PO Analgesia: Anxiety/ delirium VTE Prophylaxis: lynn full dose Stress Ulcer Prophylaxis: na Plans in collaboration with bedside consultants and IM MDs. Discussed with RN to reach out if any questions or concerns A total of 33 minutes of critical care time was devoted to this patient today, required to treat and/or prevent further deterioration of critical care condition ( as above) . ELIAS BRAR MD Jan 09, 2021 10:46
[2021-01-09] MEDS: PANTOPRAZOLE 40 MG (PROTONIX) TAB PO SCH (19:58)
[2021-01-09] MEDS: traZODone 150 MG (DESYREL) TABLET PO SCH (19:58)
[2021-01-09] MEDS: clonazePAM 0.5 MG (KlonoPIN) TAB PO SCH (20:00)
--- NOTE | 2021-01-09 20:58 | Progress Note ---
Subjective Subjective/Events-last exam Patient having some increasing shortness of breath. Denies any pain. Tolerating PO diet. Review of Systems General: Fatigue, Malaise Pulmonary: Dyspnea, Cough Cardiovascular: No: Chest Pain, Palpitations, Edema Gastrointestinal: No: Nausea, Vomiting, Diarrhea, Constipation Neurological: Weakness, Incoordination Objective Exam Last Set of Vital Signs Vital Signs Date Time Temp Pulse Resp B/P (MAP) Pulse Ox O2 Delivery O2 Flow Rate FiO2 01/09/21 20:00 37.6 01/09/21 19:00 Vapotherm 25.00 50.00 01/09/21 19:00 98 01/09/21 18:18 93 50 01/09/21 18:00 20 142/72 (99) Capillary Refill : Less Than 3 Seconds I&O Intake and Output 01/09/21 00:00 Intake Total 1210 ml Output Total 4500 ml Balance -3290 ml Intake Oral 1210 ml Output Urine Total 4500 ml General: Alert, Oriented X3, Mild Distress (with minimal activity) Lungs: Other (dimished breath sounds, mild increased work of breathing with minimal activity) Heart: Regular Rate, No Murmurs Abdomen: Normal Bowel Sounds, Soft, No Tenderness, No Masses Extremities: No Edema, No Tenderness/Swelling Neuro: Normal Speech Results/Procedures Lab Laboratory Tests 01/09/21 04:10: White Blood Count 7.6, Red Blood Count 4.18L, Hemoglobin 13.9, Hematocrit 42, Mean Corpuscular Volume 100H, Mean Corpuscular Hemoglobin 33, Mean Corpuscular Hemoglobin Concent 33, Red Cell Distribution Width 13.2, Platelet Count 197, Mean Platelet Volume 11.3, Immature Granulocyte % (Auto) 0, Neutrophils (%) (Auto) 78H, Lymphocytes (%) (Auto) 11L, Monocytes (%) (Auto) 8, Eosinophils (%) (Auto) 3, Basophils (%) (Auto) 0, Neutrophils # (Auto) 5.9, Lymphocytes # (Auto) 0.8L, Monocytes # (Auto) 0.6, Eosinophils # (Auto) 0.2, Basophils # (Auto) 0.0, Immature Granulocyte # (Auto) 0.0, Sodium Level 140, Potassium Level 4.3, Chloride Level 101, Carbon Dioxide Level 27, Anion Gap 12, Blood Urea Nitrogen 19H, Creatinine 1.15, Estimat Glomerular Filtration Rate 63, BUN/Creatinine Ratio 17, Glucose Level 114H, Calcium Level 9.2, Corrected Calcium 9.9, Phosphorus Level 2.4, Magnesium Level 1.8, Total Bilirubin 0.9, Aspartate Amino Transf (AST/SGOT) 27, Alanine Aminotransferase (ALT/SGPT) 10, Alkaline Phosphatase 103, Total Protein 6.4, Albumin 3.1L 01/09/21 04:44: Blood Gas Puncture Site RR, Blood Gas Patient Temperature 36.5, Arterial Blood pH 7.42, Arterial Blood Partial Pressure CO2 51H, Arterial Blood Partial Pressure O2 95H, Arterial Blood HCO3 33H, Arterial Blood Total CO2 34.2H, Arterial Blood Oxygen Saturation 99, Arterial Blood Base Excess 7.8H, Zain Test YES-POS, Blood Gas Ventilator Setting NO, Blood Gas Inspired Oxygen 50% BIPAP Microbiology 01/05/21 MRSA Screen - Final, Complete MRSA not isolated 01/03/21 Blood Culture - Final, Complete No growth [id number] PT STATUS: ADM IN : 1950 PHYSICIAN: BEVERLY RAMIREZ MD ADMIT DATE: 01/04/21 Signed Date of Exam:01/03/21 CHEST 1 VIEW, AP/PA ONLY INDICATION: sepsis COMPARISON: 08/23/2018 FINDINGS: Single frontal view of the chest demonstrates mild cardiomegaly. Pulmonary vasculature is within normal limits. The lungs are well aerated and clear. No large pleural effusion or pneumothorax is seen. The visualized osseous structures show no acute abnormalities. IMPRESSION: 1. Mild cardiomegaly, but no evidence of failure or focal infiltrate. Dictated by: Dictated on workstation # [id number] Dict: 01/04/2138 Trans: 01/04/21843 [id number] Interpreted by: MARILEE MONCADA MD Electronically signed by: MARILEE MONCADA MD 01/04/21843 [facility] [id number] PT STATUS: ADM IN : 1950 PHYSICIAN: YASIR MELARA MD ADMIT DATE: 01/04/21 Signed Date of Exam:01/04/21 US VENOUS LOWER EXT LEOBARDO PROCEDURE: US Venous Lower Ext Leobardo. TECHNIQUE: Multiple real-time grayscale images were obtained over the lower extremities in various projections, bilaterally. Additional duplex Doppler and color Doppler images were also obtained. INDICATION: Lower extremity pain and edema. Elevated D-dimer. COMPARISON: 04/28/2012. FINDINGS: There is partially occlusive deep vein thrombus within the mid superficial femoral artery extending through the left popliteal artery and calf vessels of the left lower extremity. The left common femoral and profunda femoris arteries are normal with normal compressibility and color Doppler filling. The right common femoral vein, femoral vein, deep femoral vein, and popliteal vein are normal in appearance. These vessels show normal compressibility, color flow and doppler augmentation. The visualized deep calf veins demonstrate no distinct intraluminal thrombus. IMPRESSION: 1. Partially occlusive deep vein thrombus within the mid superficial femoral artery extending into the left popliteal artery and calf vessels of the left lower extremity. 2. No sonographic evidence of deep venous thrombosis in the right lower extremity. Called to Felix at 8:46 a.m. by cvb. Dictated by: Dictated on workstation # [id number] Dict: 01/04/21836 Trans: 01/04/21847 [id number] Interpreted by: KRYSTEN LINO DO Electronically signed by: KRYSTEN LINO DO 01/04/21847 NAME: [facility] REC#: [id number] PT STATUS: ADM IN : 1950 PHYSICIAN: MEDINA MINA MD ADMIT DATE: 01/04/21 Draft Date of Exam:01/04/21 LUNG SCAN PERFUSION INDICATION: Shortness of breath. TECHNIQUE: Patient was administered 5.2 mCi technetium 99m MAA intravenously and imaging over the chest was performed in multiple obliquities. FINDINGS: There appear to be bilateral wedge-shaped perfusion defects. A large wedge-shaped defect in the upper lobe on the right is seen. There also appear to be at least two large defects in the left lobe in upper and lower portions. IMPRESSION: Large wedge-shaped defects bilaterally, consistent with high probability for pulmonary embolism. Dictated on workstation # [id number] Dict: 01/04/21 1314 Trans: 01/04/21 1325 [id number] Interpreted by: SILVANA MAY MD Electronically signed by: Assessment/Plan Assessment/Plan (1) Acute and chronic respiratory failure with hypercapnia Status: Acute Assessment & Plan: 01/07: MAT protocol, continue to titrate as tolerated 01/08: CO2 retention, will continue to titrate as tolerated 01/09: Requiring bipap in the AM, will continue to titrate as tolerated (2) Left leg DVT Status: Acute Assessment & Plan: 01/07: Patient on tx lovenox, V/Q scan with high probability of PE Qualifiers: Qualified Codes: I82.402 - Acute embolism and thrombosis of unspecified deep veins of left lower extremity (3) Obesity hypoventilation syndrome Status: Acute (4) LAILA on CPAP Status: Acute Assessment & Plan: 01/07: patient to bring home CPAP to hospital (5) Elevated d-dimer Status: Acute (6) Adult BMI 50.0-59.9 kg/sq m Status: Acute AYE DE LA VEGA MD Jan 09, 2021 20:58
[2021-01-10] VITALS (16 sets, daily range): BP systolic 106–178; BP diastolic 59–115
[2021-01-10] MEDS: RT-ALBUTEROL/IPRATROPIUM 3 ML (DUONEB) VIAL INH SCH ×6 (02:00→22:36)
[2021-01-10 04:36] LABS: BASOPHILS % (AUTO) 1 % (0-10); EOSINOPHILS # (AUTO) 0.3 10^3/uL (0.0-0.3); EOSINOPHILS % (AUTO) 4 % (0-10); HEMATOCRIT 39 % (40-54); HEMOGLOBIN 12.8 g/dL (13.3-17.7); LYMPHOCYTES % (AUTO) 14 % (12-44); MEAN CORPUSCULAR HEMOGLOBIN 33 pg (25-34); MEAN CORPUSCULAR HGB CONC 33 g/dL (32-36); MEAN CORPUSCULAR VOLUME 102 fL (80-99); MEAN PLATELET VOLUME 10.4 fL (9.0-12.2); MONOCYTES # (AUTO) 0.6 10^3/uL (0.0-1.0); MONOCYTES % (AUTO) 9 % (0-12); NEUTROPHILS # (AUTO) 5.1 10^3/uL (1.8-7.8); NEUTROPHILS % (AUTO) 73 % (42-75); PLATELET COUNT 167 10^3/uL (130-400)
[2021-01-10 04:53] LABS: ALBUMIN 2.8 GM/DL (3.2-4.5); POTASSIUM 3.8 MMOL/L (3.6-5.0)
[2021-01-10 04:54] LABS: CALCIUM 8.7 MG/DL (8.5-10.1)
[2021-01-10 04:55] LABS: TOTAL PROTEIN 5.8 GM/DL (6.4-8.2)
[2021-01-10 04:57] LABS: BILIRUBIN,TOTAL 0.8 MG/DL (0.1-1.0)
[2021-01-10] MEDS: POTASSIUM CL 10MEQ/50ML IVPB 50 ML IV SCH (05:07)
[2021-01-10] MEDS: MAGNESIUM 1 GM/100 ML IVPB 100 ML IV SCH (05:07)
[2021-01-10] MEDS: KCL 20 MEQ TAB (K-DUR) PO SCH (05:07)
[2021-01-10] MEDS: VENlafaxine XR 75 MG (EFFEXOR XR) CAP PO SCH (05:14)
[2021-01-10] MEDS: CYANOCOBALAMIN 1,000 MCG (VITAMIN B-12) TABLET PO SCH (05:14)
[2021-01-10] MEDS: CATHETER FLUSH 10 ML SYR IV SCH ×3 (05:15→20:58)
[2021-01-10] MEDS: meTOprolol TARTRATE 50 MG (LOPRESSOR) TAB PO SCH ×2 (08:27→19:52)
[2021-01-10] MEDS: MIRABEGRON 25 MG TAB (MYRBETRIQ) PO SCH (08:27)
[2021-01-10] MEDS: VITAMIN D3 25 MCG (1,000 UNITS) TABLET PO SCH (08:27)
[2021-01-10] MEDS: GABAPENTIN 300 MG (NEURONTIN) CAP PO SCH ×3 (08:27→19:52)
[2021-01-10] MEDS: ALLOPURINOL 100 MG (ZYLOPRIM) TAB PO SCH (08:27)
[2021-01-10] MEDS: MICONAZOLE 2% POWDER (DESENEX AF) 90 GM TOP SCH ×2 (08:28→19:53)
--- NOTE | 2021-01-10 08:44 | Tele-ICU Progress Note ---
Subjective Date Seen by a Provider: Jan 10, 2021 Time Seen by a Provider: 08:44 Sepsis Event Evaluation Height, Weight, BMI Height: 5'10.00" Weight: 358lbs. 6.0oz. 162.587588jg; 53.20 BMI Method:Stated Exam Exam Patient acknowledged, consented, and participated in this virtual visit which was conducted using real time audio/video Vital Signs Date Time Temp Pulse Resp B/P (MAP) Pulse Ox O2 Delivery O2 Flow Rate FiO2 01/10/21 08:22 36.4 01/10/21 07:04 88 Vapotherm 30.00 60 01/10/21 06:00 98 20 107/64 (78) 90 Vapotherm 30.00 45.00 01/10/21 05:21 Vapotherm 30.00 45.00 01/10/21 05:16 Vapotherm 25.00 45.00 01/10/21 05:13 Vapotherm 20.00 40.00 01/10/21 05:00 85 25 130/75 (93) 93 NIV Bilevel 35.00 01/10/21 04:00 89 16 115/67 (83) 91 NIV Bilevel 35.00 01/10/21 04:00 94 NIV Bilevel 35 01/10/21 03:33 37.2 01/10/21 03:00 89 20 117/65 (82) 95 NIV Bilevel 35.00 01/10/21 02:01 88 19 93 35.00 01/10/21 02:00 87 25 106/68 (81) 93 NIV Bilevel 35.00 01/10/21 01:00 83 01/10/21 01:00 83 13 120/61 (80) 93 NIV Bilevel 35.00 01/10/21 00:00 84 18 118/67 (84) 93 NIV Bilevel 35.00 01/10/21 00:00 94 NIV Bilevel 35 01/09/21 23:23 36.9 01/09/21 23:00 80 19 123/70 (87) 92 NIV Bilevel 35.00 01/09/21 22:00 81 16 112/63 (79) 93 NIV Bilevel 35.00 01/09/21 21:08 NIV Bilevel 35.00 01/09/21 21:07 92 16 95 35.00 01/09/21 21:00 97 21 145/62 (89) 90 Vapotherm 25.00 50.00 01/09/21 20:00 94 Vapotherm 25.00 50 01/09/21 20:00 37.6 01/09/21 20:00 100 25 130/79 (96) 96 Vapotherm 25.00 50.00 01/09/21 19:00 98 24 115/60 (78) 94 Vapotherm 25.00 50.00 01/09/21 19:00 Vapotherm 25.00 50.00 01/09/21 19:00 98 01/09/21 18:18 93 Vapotherm 25.00 50 01/09/21 18:00 97 20 142/72 (99) 92 NIV Bilevel 50.00 01/09/21 17:00 97 20 113/72 (86) 92 NIV Bilevel 50.00 01/09/21 16:43 Vapotherm 50 01/09/21 16:00 91 16 137/77 (96) 93 NIV Bilevel 50.00 01/09/21 15:42 36.6 01/09/21 15:39 95 Vapotherm 25.00 55 01/09/21 15:39 93 Vapotherm 25.00 50 01/09/21 15:00 96 25 124/70 (88) 92 NIV Bilevel 50.00 01/09/21 14:00 92 13 139/61 (98) 94 NIV Bilevel 50.00 01/09/21 13:00 90 01/09/21 13:00 87 19 113/69 (84) 92 NIV Bilevel 50.00 01/09/21 12:05 36.6 01/09/21 12:00 Vapotherm 50 01/09/21 12:00 88 9 90/49 (63) 93 NIV Bilevel 50.00 01/09/21 11:00 79 16 103/65 (78) 93 NIV Bilevel 50.00 01/09/21 10:44 93 Vapotherm 25.00 50 01/09/21 10:00 80 16 112/71 (85) 94 NIV Bilevel 50.00 01/09/21 09:00 93 17 97/54 (68) 94 NIV Bilevel 50.00 I & O 01/10/21 07:00 Intake Total 1390 ml Output Total 1550 ml Balance -160 ml Height & Weight Height: 5'10.00" Weight: 358lbs. 6.0oz. 162.011987ga; 53.20 BMI Method:Stated General Appearance: No Apparent Distress, WD/WN, Chronically ill, Obese, Other (Lethargic and confused) HEENT: PERRL/EOMI, Normal ENT Inspection, Pharynx Normal, Moist Mucous Membranes Neck: Full Range of Motion, Normal Inspection, Non Tender Respiratory: Lungs Clear, Normal Breath Sounds, Decreased Breath Sounds Cardiovascular: Regular Rate, Rhythm, No Edema, No Gallop, No JVD, No Murmur, Normal Peripheral Pulses Capillary Refill: Less Than 3 Seconds Peripheral Pulses: 1+ Dorsalis Pedis (R) (see free text), 1+ Left Dors-Pedis (L) Extremity: Normal Capillary Refill, Normal Inspection, Normal Range of Motion, Non Tender, No Calf Tenderness, Pedal Edema Neurologic/Psychiatric: Alert, Disoriented Skin: Normal Color, Warm/Dry Lymphatic: No Adenopathy Results Lab Laboratory Tests 01/09/21 04:10 01/10/21 04:19 Assessment/Plan Assessment/Plan (Tele-ICU Physician , Progress Note ) Available chart/ vitals / labs / Images reviewed Video assessment done using teleICU camera, rest of exam as per RN Discussed with RN , EXAM PER RN Events overnight : on bipap Afebrile I/O = neg 3500 Drips: Pressors: , hemodynamically stable Consultants: Hospital course: 01/03 70 yr male DX:Hypoxia, elevated d-dimer 01/03 Imaging suggests araceli PE , DVT left LE 01/05 Desaturating and increased Fi02 req. BiPAP. VSS O2 sat 93% on 13/07, 50%. 01/07 - BiPAP. 13/07, 50%. night , VT 25L 75% 01/08 - bipap ?/8 , VT 20L 70% , urinary retention - jackson plced 01/09 -BIPAP 35% VT 20L 50% 01/10- bipap 35 % , VT 45 % 20 L A/P Bilteral PE - (large wedge-shaped defects bilaterally, consistent with high probability for pulmonary embolism per VQ lung scan of 01-04-21) - Echo on 01/04/21: LVEF 55-65%, PASP 30-35 mmHg -AC with lovenox 150 bid Acute resp failure , hypoxic and hypercapnic ( acute on chronic - on BiPAP 15/10 30% - IMPROVED -mild resp acidosis -> increased to 16/8 on 01/07 - improving acidosis - will cont to use BIPAP at night and at daytime naps , increse patient's activity level as tolerates , decrease sedative meds - ABG INPROVED -daytime VT 20L 50% - follow cxr 01/08 - atelectasis- IS attempted - not compliant Acute on chronic renal insufficiency: -improving Mildly elevated troponin - probable type 2 LA secondary to transient hypoxia - as per cards on beta blockers DVT LEFT / PE - AC lovenox - to change to ? NOAC LAILA - PSG 2015 ( wt 266 lb then as per report , now 370 lb ) REM AHI 49 , totl AHI 5,5 - titrated CPAP 7 cm - CPAP tx --? home setting and compliance - PROBABLY NEED TO REPEAT PSG Pulm HTN - mst likely to combination of above -PASP 30-35 mmHg Super morbid obesity with a BMI of 52.7 Chronic joint pain - h/o shoulder and bilat knee pain H/o anxiety/depression Keppra for tremors ? - recent - ? attributes to co2 retention Urinary retention - no blood clots , jackson placed 01/08 - as per PCP Lines : periph (Central Line Necessity Reviewed) Jackson: 01/08 OG: Nutrition: PO Analgesia: Anxiety/ delirium VTE Prophylaxis: lynn full dose Stress Ulcer Prophylaxis: na Plans in collaboration with bedside consultants and IM MDs. Discussed with RN to reach out if any questions or concerns A total of 31 minutes of critical care time was devoted to this patient today, required to treat and/or prevent further deterioration of critical care condition ( as above) . ELIAS BRAR MD Jan 10, 2021 08:44
[2021-01-10] MEDS ORDERED: FUROSEMIDE 40 MG/4 ML INJ (LASIX) IVP SCH (09:00)
--- NOTE | 2021-01-10 09:44 | Physical Therapy Daily Note ---
PT Daily Note-Current Subjective Patient in bed pre tx, agrees to PT, has unrated chronic back pain. Appearance Patient in recliner post tx with nurse call, phone, tray, all needs met. Mental Status Patient Orientation: Person, Place, Situation Attachments: Oxygen, Daniel Catheter Transfers SCALE: Activities may be completed with or without assistive devices. 0-Syshxujxnz-qgspmwr completes the activity by him/herself with no assistance from a helper. 5-Set-up or Clean-up Assistance-helper sets up or cleans up; patient completes activity. [place] assists only prior to or following the activity. 4-Supervision or Touching Assistance-helper provides verbal cues and/or touching/steadying and/or contact guard assistance as patient completes ac tivity. Assistance may be provided throughout the activity or intermittently. 3-Partial/Moderate Assistance-helper does LESS THAN HALF the effort. [place] lifts, holds or supports trunk or limbs, but provides less than half the effort. 2-Substantial/Maximal Assistance-helper does MORE THAN HALF the effort. [place] lifts or holds trunk or limbs and provides more than half the effort. 1-Afsiugbqz-gljunw does ALL the effort. Patient does none of the effort to complete the activity. Or, the assistance of 2 or more helpers is required for the patient to complete the activity. If activity was not attempted, code reason: 7-Patient Refused. 9-Not Applicable-not attempted and the patient did not perform the activity before the current illness, exacerbation or injury. 10-Not Attempted due to Environmental Limitations-(lack of equipment, weather restraints, etc.). 88-Not Attempted due to Medical Conditions or Safety Concerns. Roll Left & Right (QC): 6 Lying to Sitting/Side of Bed(Q: 3 Sit to Stand (QC): 4 Chair/Mun-ey-Xxreb Xfer(QC): 4 Gait Training Distance: 5' Gait Persons Needed: 1 Gait Assistive Device: FWW slow, unsteady ambulation but no LOB Exercises Seated Therapy Exercises: Ankle pumps, Long arc quads Seated Reps: 20 Standing: Mini squats Standing Reps: 12 Treatments bed mobility and transfers, ambulation, LE strengthening Assessment Current Status: Fair Progress Patient's O2 stayed above 95% during activity PT Drama Critic Goals Drama Critic Goals PT Drama Critic Goals Time Frame: Jan 14, 2021 Roll Left & Right (QC): 4 Sit to Lying (QC): 4 Lying-Sitting on Side/Bed(QC): 4 Sit to Stand (QC): 4 Chair/Rlu-vj-Mqcrc Xfer(QC): 4 Walk 10 feet (QC): 4 Walk 50ft with 2 Turns (QC): 4 PT Plan Problem List Problem List: Activity Tolerance, Functional Strength, Safety, Balance, Gait, Transfer, Bed Mobility, ROM Treatment/Plan Treatment Plan: Continue Plan of Care Treatment Plan: Bed Mobility, Education, Functional Activity Dash, Functional Strength, Gait, Safety, Therapeutic Exercise, Transfers Treatment Duration: Jan 14, 2021 Frequency: 6 times per week Estimated Hrs Per Day: .25 hour per day Patient and/or Family Agrees t: Yes Safety Risks/Education Patient Education: Gait Training, Transfer Techniques, Correct Positioning, Safety Issues Teaching Recipient: Patient Teaching Methods: Demonstration, Discussion Response to Teaching: Reinforcement Needed Time/GCodes Time In: 904 Time Out: 921 Total Billed Treatment Time: 17 Total Billed Treatment 1 visit FA ASTRID PACK PT Jan 10, 2021 09:44
--- NOTE | 2021-01-10 10:15 | Progress Note ---
Subjective Subjective/Events-last exam Patient feeling much better this AM. He is up sitting in chair. Breathing more comfortable. Tolerating PO diet and working with PT Review of Systems Pulmonary: Dyspnea, Cough Cardiovascular: No: Chest Pain, Palpitations, Edema Gastrointestinal: No: Nausea, Vomiting, Abdominal Pain, Constipation Neurological: Weakness, Incoordination Objective Exam Last Set of Vital Signs Vital Signs Date Time Temp Pulse Resp B/P (MAP) Pulse Ox O2 Delivery O2 Flow Rate FiO2 01/10/21 10:01 37.0 160 88 60 01/10/21 09:00 21 130/70 (90) Vapotherm 30.00 45.00 Capillary Refill : Less Than 3 Seconds I&O Intake and Output 01/10/21 00:00 Intake Total 1100 ml Output Total 1445 ml Balance -345 ml Intake Oral 1100 ml Output Urine Total 1445 ml General: Alert, Oriented X3, Mild Distress Lungs: Other (diminished breath sounds, increased work of breathing with minimal activity) Heart: Regular Rate, No Murmurs Abdomen: Normal Bowel Sounds, Soft, No Tenderness Extremities: Other (1+ pitting edema equal bilaterally) Skin: No Rashes Neuro: Normal Speech, Sensation Intact Results/Procedures Lab Laboratory Tests 01/10/21 04:19: White Blood Count 7.0, Red Blood Count 3.85L, Hemoglobin 12.8L, Hematocrit 39L, Mean Corpuscular Volume 102H, Mean Corpuscular Hemoglobin 33, Mean Corpuscular Hemoglobin Concent 33, Red Cell Distribution Width 13.1, Platelet Count 167, Mean Platelet Volume 10.4, Immature Granulocyte % (Auto) 0, Neutrophils (%) (Auto) 73, Lymphocytes (%) (Auto) 14, Monocytes (%) (Auto) 9, Eosinophils (%) (Auto) 4, Basophils (%) (Auto) 1, Neutrophils # (Auto) 5.1, Lymphocytes # (Auto) 1.0, Monocytes # (Auto) 0.6, Eosinophils # (Auto) 0.3, Basophils # (Auto) 0.0, Immature Granulocyte # (Auto) 0.0, Sodium Level 138, Potassium Level 3.8, Chloride Level 103, Carbon Dioxide Level 24, Anion Gap 11, Blood Urea Nitrogen 19H, Creatinine 1.00, Estimat Glomerular Filtration Rate 74, BUN/Creatinine Ratio 19, Glucose Level 116H, Calcium Level 8.7, Corrected Calcium 9.7, Total Bilirubin 0.8, Aspartate Amino Transf (AST/SGOT) 42H, Alanine Aminotransferase (ALT/SGPT) 15, Alkaline Phosphatase 87, Total Protein 5.8L, Albumin 2.8L Microbiology 01/05/21 MRSA Screen - Final, Complete MRSA not isolated 01/03/21 Blood Culture - Final, Complete No growth Radiology NAME: ANGEL NATHAN [facility] REC#: [id number] PT STATUS: ADM IN : 1950 PHYSICIAN: BEVERLY RAMIREZ MD ADMIT DATE: 01/04/21 Signed Date of Exam:01/03/21 CHEST 1 VIEW, AP/PA ONLY INDICATION: sepsis COMPARISON: 08/23/2018 FINDINGS: Single frontal view of the chest demonstrates mild cardiomegaly. Pulmonary vasculature is within normal limits. The lungs are well aerated and clear. No large pleural effusion or pneumothorax is seen. The visualized osseous structures show no acute abnormalities. IMPRESSION: 1. Mild cardiomegaly, but no evidence of failure or focal infiltrate. Dictated by: Dictated on workstation # [id number] Dict: 01/04/2138 Trans: 01/04/21 0844 [id number] Interpreted by: MARILEE MONCADA MD Electronically signed by: MARILEE MONCADA MD 01/04/21 0844 NAME: ANGEL NATHAN [facility] REC#: [id number] PT STATUS: ADM IN : 1950 PHYSICIAN: YASIR MELARA MD ADMIT DATE: 01/04/21 Signed Date of Exam:01/04/21 US VENOUS LOWER EXT LEOBARDO PROCEDURE: US Venous Lower Ext Leobardo. TECHNIQUE: Multiple real-time grayscale images were obtained over the lower extremities in various projections, bilaterally. Additional duplex Doppler and color Doppler images were also obtained. INDICATION: Lower extremity pain and edema. Elevated D-dimer. COMPARISON: 04/28/2012. FINDINGS: There is partially occlusive deep vein thrombus within the mid superficial femoral artery extending through the left popliteal artery and calf vessels of the left lower extremity. The left common femoral and profunda femoris arteries are normal with normal compressibility and color Doppler filling. The right common femoral vein, femoral vein, deep femoral vein, and popliteal vein are normal in appearance. These vessels show normal compressibility, color flow and doppler augmentation. The visualized deep calf veins demonstrate no distinct intraluminal thrombus. IMPRESSION: 1. Partially occlusive deep vein thrombus within the mid superficial femoral artery extending into the left popliteal artery and calf vessels of the left lower extremity. 2. No sonographic evidence of deep venous thrombosis in the right lower extremity. Called to Felix at 8:46 a.m. by cvb. Dictated by: Dictated on workstation # [id number] Dict: 01/04/2137 Trans: 01/04/21847 [id number] [id number] Interpreted by: KRYSTEN LINO DO Electronically signed by: KRYSTEN LINO DO 01/04/21847 NAME: ANGEL NATHAN [facility] REC#: [id number] PT STATUS: ADM IN : 1950 PHYSICIAN: MEDINA MINA MD ADMIT DATE: 01/04/21 Draft Date of Exam:01/04/21 LUNG SCAN PERFUSION INDICATION: Shortness of breath. TECHNIQUE: Patient was administered 5.2 mCi technetium 99m MAA intravenously and imaging over the chest was performed in multiple obliquities. FINDINGS: There appear to be bilateral wedge-shaped perfusion defects. A large wedge-shaped defect in the upper lobe on the right is seen. There also appear to be at least two large defects in the left lobe in upper and lower portions. IMPRESSION: Large wedge-shaped defects bilaterally, consistent with high probability for pulmonary embolism. Dictated on workstation # [id number] Dict: 01/04/21 1314 Trans: 01/04/21 1325 [id number] Interpreted by: SILVANA MAY MD Electronically signed by: Assessment/Plan Assessment/Plan (1) Acute and chronic respiratory failure with hypercapnia Status: Acute Assessment & Plan: 01/07: MAT protocol, continue to titrate as tolerated 01/08: CO2 retention, will continue to titrate as tolerated 01/09: Requiring bipap in the AM, will continue to titrate as tolerated 01/10: Titrated to vapotherm 25/45, will transfer to med surg, PT/OT (2) Left leg DVT Status: Acute Assessment & Plan: 01/07: Patient on tx lovenox, V/Q scan with high probability of PE Qualifiers: Qualified Codes: I82.402 - Acute embolism and thrombosis of unspecified deep veins of left lower extremity (3) Obesity hypoventilation syndrome Status: Acute (4) LAILA on CPAP Status: Acute Assessment & Plan: 01/07: patient to bring home CPAP to hospital (5) Elevated d-dimer Status: Acute (6) Adult BMI 50.0-59.9 kg/sq m Status: Acute AYE DE LA VEGA MD Jan 10, 2021 10:15
[2021-01-10] MEDS: ENOXAPARIN 300 MG/3 ML (LOVENOX) MULTI-DOSE VIAL SQ SCH ×2 (12:34→23:30)
[2021-01-10] MEDS: traZODone 150 MG (DESYREL) TABLET PO SCH (19:52)
[2021-01-10] MEDS: PANTOPRAZOLE 40 MG (PROTONIX) TAB PO SCH (19:52)
[2021-01-10] MEDS: clonazePAM 0.5 MG (KlonoPIN) TAB PO SCH (19:53)
[2021-01-10] MEDS: oxyCODONE/APAP 10/325MG (PERCOCET 10) TABLET PO PRN (22:38)
--- NOTE | 2021-01-10 22:46 | Progress Note - Cardiology ---
Cardiology SOAP Progress Note Subjective: Shortness of breath modestly improved No cp or palp or syncope Leg swelling as before Gen weakness and malaise No n/v/d Objective: I&O/Vital Signs 01/10/21 01/10/21 01/10/21 01/10/21 11:47 12:47 14:16 16:00 Temp 36.4 36.8 Pulse 77 83 Resp 20 B/P (MAP) 141/97 (112) Pulse Ox 95 96 O2 Delivery Vapotherm Vapotherm O2 Flow Rate 25.00 25.00 45.00 FiO2 45 01/10/21 01/10/21 01/10/21 01/10/21 18:34 20:00 20:00 22:36 Temp 37.0 Pulse 89 Resp 20 B/P (MAP) 133/92 (106) Pulse Ox 96 98 96 97 O2 Delivery Vapotherm Vapotherm Vapotherm Vapotherm O2 Flow Rate 25.00 25.00 25.00 25.00 45.00 FiO2 45 45 45 01/10/21 00:00 Intake Total 900 ml Output Total 1100 ml Balance -200 ml Weight (Pounds): 358 Weight (Ounces): 6.0 Weight (Calculated Kilograms): 162.453587 Constitutional: AAO x 3, well-nourished, other (lethargic) Respiratory: chest expansion is symmetric, chest is bilaterally symmetric, other (good air entry) Cardiovascular: regular rate-rhythm, S1 and S2 Gastrointestional: soft, round Extremities: other (mild bilat LE swelling) Neurologic/Psychiatric: grossly intact Skin: No rash on exposed areas, No ulcerations on exposed areas Results/Procedures: Labs Laboratory Tests 01/10/21 04:19: White Blood Count 7.0, Red Blood Count 3.85L, Hemoglobin 12.8L, Hematocrit 39L, Mean Corpuscular Volume 102H, Mean Corpuscular Hemoglobin 33, Mean Corpuscular Hemoglobin Concent 33, Red Cell Distribution Width 13.1, Platelet Count 167, Mean Platelet Volume 10.4, Immature Granulocyte % (Auto) 0, Neutrophils (%) (Auto) 73, Lymphocytes (%) (Auto) 14, Monocytes (%) (Auto) 9, Eosinophils (%) (Auto) 4, Basophils (%) (Auto) 1, Neutrophils # (Auto) 5.1, Lymphocytes # (Auto) 1.0, Monocytes # (Auto) 0.6, Eosinophils # (Auto) 0.3, Basophils # (Auto) 0.0, Immature Granulocyte # (Auto) 0.0, Sodium Level 138, Potassium Level 3.8, Chloride Level 103, Carbon Dioxide Level 24, Anion Gap 11, Blood Urea Nitrogen 19H, Creatinine 1.00, Estimat Glomerular Filtration Rate 74, BUN/Creatinine Ratio 19, Glucose Level 116H, Calcium Level 8.7, Corrected Calcium 9.7, Total Bilirubin 0.8, Aspartate Amino Transf (AST/SGOT) 42H, Alanine Aminotransferase (ALT/SGPT) 15, Alkaline Phosphatase 87, Total Protein 5.8L, Albumin 2.8L Microbiology 01/05/21 MRSA Screen - Final, Complete MRSA not isolated 01/03/21 Blood Culture - Final, Complete No growth Laboratory Tests 01/09/21 04:10 01/10/21 04:19 A/P: Assessment: Progressive SOB, necessitating transfer to ICU on 01/05/21 - due to PE (large wedge-shaped defects bilaterally, consistent with high probability for pulmonary embolism per VQ lung scan of 01-04-21) - Echo on 01/04/21: LVEF 55-65%, PASP 30-35 mmHg Acute on chronic renal insufficiency: improving Mildly elevated troponin - probable type 2 TN secondary to transient hypoxia DVT - Partially occlusive deep vein thrombus within the mid superficial femoral artery extending into the left popliteal artery and calf vessels of the left lower extremity. No sonographic evidence of deep venous thrombosis in the right lower extremity. LAILA - CPAP tx HTN HLD, by history Morbid obesity - BMI approx 54 Chronic joint pain - h/o shoulder and bilat knee pain H/o anxiety/depression Plan: Continue anticoag and current regimen Diuretics as needed Replace electrolytes as indicated Would likely need lifetime anticoag Dr Paulino covering Cardiology svce over the weekend TARA BLANCHARD MD FACP [facility] Jan 10, 2021 22:46
[2021-01-11] VITALS (7 sets, daily range): BP systolic 122–157; BP diastolic 61–83
[2021-01-11] MEDS: RT-ALBUTEROL/IPRATROPIUM 3 ML (DUONEB) VIAL INH SCH ×6 (03:26→21:43)
[2021-01-11] MEDS: POTASSIUM CL 10MEQ/50ML IVPB 50 ML IV SCH (05:15)
[2021-01-11] MEDS: CATHETER FLUSH 10 ML SYR IV SCH ×3 (05:15→19:48)
[2021-01-11] MEDS: MAGNESIUM 1 GM/100 ML IVPB 100 ML IV SCH (05:16)
[2021-01-11] MEDS: KCL 20 MEQ TAB (K-DUR) PO SCH (05:16)
[2021-01-11] MEDS: CYANOCOBALAMIN 1,000 MCG (VITAMIN B-12) TABLET PO SCH ×2 (05:17→05:59)
[2021-01-11] MEDS: VENlafaxine XR 75 MG (EFFEXOR XR) CAP PO SCH ×2 (05:17→05:59)
[2021-01-11 05:59] LABS: BASOPHILS % (AUTO) 1 % (0-10); EOSINOPHILS # (AUTO) 0.4 10^3/uL (0.0-0.3); EOSINOPHILS % (AUTO) 7 % (0-10); HEMATOCRIT 42 % (40-54); HEMOGLOBIN 14.1 g/dL (13.3-17.7); LYMPHOCYTES # (AUTO) 1.1 10^3/uL (1.0-4.0); LYMPHOCYTES % (AUTO) 18 % (12-44); MEAN CORPUSCULAR HEMOGLOBIN 34 pg (25-34); MEAN CORPUSCULAR HGB CONC 34 g/dL (32-36); MEAN CORPUSCULAR VOLUME 101 fL (80-99); MEAN PLATELET VOLUME 10.2 fL (9.0-12.2); MONOCYTES # (AUTO) 0.5 10^3/uL (0.0-1.0); MONOCYTES % (AUTO) 9 % (0-12); NEUTROPHILS # (AUTO) 4.1 10^3/uL (1.8-7.8); NEUTROPHILS % (AUTO) 66 % (42-75); PLATELET COUNT 187 10^3/uL (130-400); POTASSIUM 3.7 MMOL/L (3.6-5.0); WHITE BLOOD COUNT 6.1 10^3/uL (4.3-11.0)
[2021-01-11] MEDS: oxyCODONE/APAP 10/325MG (PERCOCET 10) TABLET PO PRN ×2 (05:59→12:23)
[2021-01-11 06:00] LABS: CALCIUM 9.1 MG/DL (8.5-10.1)
[2021-01-11 06:01] LABS: TOTAL PROTEIN 6.4 GM/DL (6.4-8.2)
[2021-01-11 06:03] LABS: BILIRUBIN,TOTAL 0.7 MG/DL (0.1-1.0)
[2021-01-11 06:05] LABS: CREATININE SERUM 1.09 MG/DL (0.60-1.30)
[2021-01-11] MEDS: meTOprolol TARTRATE 50 MG (LOPRESSOR) TAB PO SCH ×2 (08:26→19:47)
[2021-01-11] MEDS: GABAPENTIN 300 MG (NEURONTIN) CAP PO SCH ×3 (08:26→19:47)
[2021-01-11] MEDS: ALLOPURINOL 100 MG (ZYLOPRIM) TAB PO SCH (08:26)
[2021-01-11] MEDS: MIRABEGRON 25 MG TAB (MYRBETRIQ) PO SCH (08:26)
[2021-01-11] MEDS: VITAMIN D3 25 MCG (1,000 UNITS) TABLET PO SCH (08:27)
[2021-01-11] MEDS: MICONAZOLE 2% POWDER (DESENEX AF) 90 GM TOP SCH ×2 (08:30→19:47)
--- NOTE | 2021-01-11 12:04 | Physical Therapy Daily Note ---
PT Daily Note-Current Subjective Patient is very agreeable to participate with therapy. Mental Status Patient Orientation: Normal For Age Attachments: Oxygen (vapotherm) Transfers SCALE: Activities may be completed with or without assistive devices. 6-Rtqcosbnuh-brluytw completes the activity by him/herself with no assistance from a helper. 5-Set-up or Clean-up Assistance-helper sets up or cleans up; patient completes activity. [place] assists only prior to or following the activity. 4-Supervision or Touching Assistance-helper provides verbal cues and/or touching/steadying and/or contact guard assistance as patient completes activit y. Assistance may be provided throughout the activity or intermittently. 3-Partial/Moderate Assistance-helper does LESS THAN HALF the effort. [place] lifts, holds or supports trunk or limbs, but provides less than half the effort. 2-Substantial/Maximal Assistance-helper does MORE THAN HALF the effort. [place] lifts or holds trunk or limbs and provides more than half the effort. 6-Uivqmwqrs-blahwn does ALL the effort. Patient does none of the effort to complete the activity. Or, the assistance of 2 or more helpers is required for the patient to complete the activity. If activity was not attempted, code reason: 7-Patient Refused. 9-Not Applicable-not attempted and the patient did not perform the activity before the current illness, exacerbation or injury. 10-Not Attempted due to Environmental Limitations-(lack of equipment, weather restraints, etc.). 88-Not Attempted due to Medical Conditions or Safety Concerns. Lying to Sitting/Side of Bed(Q: 6 Sit to Stand (QC): 4 Chair/Wxh-hm-Fovyo Xfer(QC): 4 SBA with all mobility Gait Training Distance: 10' x 2 Walk 10 feet (QC): 4 (SBA/distance restricted by vapotherm tubing) Gait Assistive Device: FWW safe and functional Exercises Seated Therapy Exercises: Long arc quads Seated Reps: 15 Standing: Marching Standing Reps: 15 Assessment Patient up in recliner with needs met. PT to increase activity as tolerated by patient. Patient is very good spirits. 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 Mcc Goals PT Mcc Goals Time Frame: Jan 14, 2021 Roll Left & Right (QC): 4 Sit to Lying (QC): 4 Lying-Sitting on Side/Bed(QC): 4 Sit to Stand (QC): 4 Chair/Jmb-tt-Dydie Xfer(QC): 4 Walk 10 feet (QC): 4 Walk 50ft with 2 Turns (QC): 4 PT Plan Treatment/Plan Treatment Plan: Continue Plan of Care Treatment Plan: Bed Mobility, Education, Functional Activity Dash, Functional Strength, Gait, Safety, Therapeutic Exercise, Transfers Treatment Duration: Jan 14, 2021 Frequency: 6 times per week Estimated Hrs Per Day: .25 hour per day Patient and/or Family Agrees t: Yes Time/GCodes Time In: 1110 Time Out: 1122 Total Billed Treatment Time: 12 Total Billed Treatment 1 visit FA 12 min SAMMY ZAVALA PT Jan 11, 2021 12:04
[2021-01-11] MEDS: ENOXAPARIN 300 MG/3 ML (LOVENOX) MULTI-DOSE VIAL SQ SCH (12:24)
[2021-01-11] MEDS ORDERED: SALINE NASAL SPRAY (OCEAN) 45 ML BTL PRN (14:15)
--- NOTE | 2021-01-11 14:17 | Cardiology Progress Note ---
Subjective Date Seen by Provider: Jan 11, 2021 Time Seen by Provider: 14:14 Subjective/Events-last exam Patient was seen at bedside, sitting comfortably, no new complaint, still on Vapotherm Review of Systems General: No Chills, No Night Sweats, No Fatigue, No Malaise, No Appetite, No Other HEENT: No Head Aches, No Visual Changes, No Ear Pain, No Dysphasia, No Sinus Congestion, No Post Nasal Drip, No Sore Throat, No Other Pulmonary: Dyspnea; No Cough, No Pleuritic Chest Pain, No Other Cardiovascular: No: Chest Pain, Palpitations, Orthopnea, Paroxysmal Noc. Dyspnea, Edema, Lt Headedness, Other Objective-Cardiology Exam Last Set of Vital Signs Vital Signs 01/11/21 01/11/21 10:42 12:00 Temp 36.8 Pulse 82 Resp 20 B/P (MAP) 130/61 (84) Pulse Ox 94 O2 Delivery Vapotherm O2 Flow Rate 25.00 50.00 FiO2 50 I&O Intake and Output 01/11/21 00:00 Intake Total 1190 ml Output Total 1175 ml Balance 15 ml Intake Oral 1190 ml Output Urine Total 1175 ml # Bowel Movements 4 General: Alert, Oriented X3, Mild Distress Lungs: Other (diminished breath sounds, increased work of breathing with minimal activity) Heart: Regular Rate, Normal S1, Normal S2, No Murmurs Abdomen: Normal Bowel Sounds, Soft, No Tenderness Extremities: Other (1+ pitting edema equal bilaterally) Skin: No Rashes Neuro: Normal Speech, Sensation Intact Psych/Mental Status: Mental Status NL, Mood NL Results Lab Laboratory Tests 01/11/21 05:40 A/P-Cardiology Admission Diagnosis Acute respiratory failure Pulmonary embolism Hypertension Hyperlipidemia Assessment/Plan Pulmonary embolism with acute respiratory failure occurred on January 05, 2021, recovering slowly, still on Vapotherm. Maintained on Lovenox. I will change to Eliquis 10 mg twice daily and monitor tolerance and response Acute on chronic renal failure, monitor renal function Type II myocardial infarction, mildly elevated troponin probably secondary to hypoxemia, underlying coronary artery disease cannot be entirely excluded. Continue to monitor and conservative management is recommended Deep venous thrombosis with partially occlusive DVT in the mid superficial femoral artery extending to the left popliteal artery and calf vessel of the l eft lower extremity. No sonographic evidence of any clot on the right side. Obstructive sleep apnea maintained on CPAP. Currently on Vapotherm Hypertension, monitor blood pressure Hyperlipidemia, monitor lipids Morbid obesity, BMI 54 Chronic joint pain. DOREEN MARR MD Jan 11, 2021 14:17
--- NOTE | 2021-01-11 14:58 | Progress Note ---
Subjective Subjective/Events-last exam Patient feel better. Tolerating chair and PO diet. Still having fatigue and weakness Review of Systems Pulmonary: Dyspnea, Cough Cardiovascular: No: Chest Pain, Palpitations, Edema Gastrointestinal: No: Nausea, Vomiting, Abdominal Pain, Diarrhea, Constipation Neurological: Weakness, Incoordination Objective Exam Last Set of Vital Signs Vital Signs Date Time Temp Pulse Resp B/P (MAP) Pulse Ox O2 Delivery O2 Flow Rate FiO2 01/11/21 14:35 94 Vapotherm 25.00 50 01/11/21 12:00 36.8 82 20 130/61 (84) Capillary Refill : Less Than 3 Seconds I&O Intake and Output 01/11/21 00:00 Intake Total 1190 ml Output Total 1175 ml Balance 15 ml Intake Oral 1190 ml Output Urine Total 1175 ml # Bowel Movements 4 General: Alert, Oriented X3, Cooperative, Mild Distress (with minimal activity) Lungs: Normal Air Movement, Other (diminished breath sounds) Heart: Regular Rate, No Murmurs Abdomen: Normal Bowel Sounds, Soft, No Tenderness Extremities: Other (1-2+ pitting edema bilaterally) Neuro: Normal Speech, Sensation Intact Results/Procedures Lab Laboratory Tests 01/11/21 05:40: White Blood Count 6.1, Red Blood Count 4.15L, Hemoglobin 14.1, Hematocrit 42, Mean Corpuscular Volume 101H, Mean Corpuscular Hemoglobin 34, Mean Corpuscular Hemoglobin Concent 34, Red Cell Distribution Width 13.0, Platelet Count 187, Mean Platelet Volume 10.2, Immature Granulocyte % (Auto) 0, Neutrophils (%) (Auto) 66, Lymphocytes (%) (Auto) 18, Monocytes (%) (Auto) 9, Eosinophils (%) (Auto) 7, Basophils (%) (Auto) 1, Neutrophils # (Auto) 4.1, Lymphocytes # (Auto) 1.1, Monocytes # (Auto) 0.5, Eosinophils # (Auto) 0.4H, Basophils # (Auto) 0.0, Immature Granulocyte # (Auto) 0.0, Sodium Level 142, Potassium Level 3.7, Chloride Level 103, Carbon Dioxide Level 27, Anion Gap 12, Blood Urea Nitrogen 16, Creatinine 1.09, Estimat Glomerular Filtration Rate 67, BUN/Creatinine Ratio 15, Glucose Level 98, Calcium Level 9.1, Corrected Calcium 9.9, Total Bilirubin 0.7, Aspartate Amino Transf (AST/SGOT) 44H, Alanine Aminotransferase (ALT/SGPT) 19, Alkaline Phosphatase 91, Total Protein 6.4, Albumin 3.0L Microbiology 01/05/21 MRSA Screen - Final, Complete MRSA not isolated 01/03/21 Blood Culture - Final, Complete No growth Radiology NAME: ANGEL NATHAN [facility] REC#: [id number] PT STATUS: ADM IN : 1950 PHYSICIAN: BEVERLY RAMIREZ MD ADMIT DATE: 01/04/21 Signed Date of Exam:01/03/21 CHEST 1 VIEW, AP/PA ONLY INDICATION: sepsis COMPARISON: 08/23/2018 FINDINGS: Single frontal view of the chest demonstrates mild cardiomegaly. Pulmonary vasculature is within normal limits. The lungs are well aerated and clear. No large pleural effusion or pneumothorax is seen. The visualized osseous structures show no acute abnormalities. IMPRESSION: 1. Mild cardiomegaly, but no evidence of failure or focal infiltrate. Dictated by: Dictated on workstation # [id number] Dict: 01/04/21 0538 Trans: 01/04/21 0844 [id number] Interpreted by: MARILEE MONCADA MD Electronically signed by: MARILEE MONCADA MD 01/04/21 0844 NAME: ANGEL NATHAN [facility] REC#: [id number] PT STATUS: ADM IN : 1950 PHYSICIAN: YASIR MELARA MD ADMIT DATE: 01/04/21 Signed Date of Exam:01/04/21 US VENOUS LOWER EXT LEOBARDO PROCEDURE: US Venous Lower Ext Leobardo. TECHNIQUE: Multiple real-time grayscale images were obtained over the lower extremities in various projections, bilaterally. Additional duplex Doppler and color Doppler images were also obtained. INDICATION: Lower extremity pain and edema. Elevated D-dimer. COMPARISON: 04/28/2012. FINDINGS: There is partially occlusive deep vein thrombus within the mid superficial femoral artery extending through the left popliteal artery and calf vessels of the left lower extremity. The left common femoral and profunda femoris arteries are normal with normal compressibility and color Doppler filling. The right common femoral vein, femoral vein, deep femoral vein, and popliteal vein are normal in appearance. These vessels show normal compressibility, color flow and doppler augmentation. The visualized deep calf veins demonstrate no distinct intraluminal thrombus. IMPRESSION: 1. Partially occlusive deep vein thrombus within the mid superficial femoral artery extending into the left popliteal artery and calf vessels of the left lower extremity. 2. No sonographic evidence of deep venous thrombosis in the right lower extremity. Called to Felix at 8:46 a.m. by cvb. Dictated by: Dictated on workstation # [id number] Dict: 01/04/21 0837 Trans: 01/04/21847 [id number] [id number] Interpreted by: KRYSTEN LINO DO Electronically signed by: KRYSTEN LINO DO 01/04/21847 NAME: ANGEL NATHAN [facility] REC#: [id number] PT STATUS: ADM IN : 1950 PHYSICIAN: MEDINA MINA MD ADMIT DATE: 01/04/21 Draft Date of Exam:01/04/21 LUNG SCAN PERFUSION INDICATION: Shortness of breath. TECHNIQUE: Patient was administered 5.2 mCi technetium 99m MAA intravenously and imaging over the chest was performed in multiple obliquities. FINDINGS: There appear to be bilateral wedge-shaped perfusion defects. A large wedge-shaped defect in the upper lobe on the right is seen. There also appear to be at least two large defects in the left lobe in upper and lower portions. IMPRESSION: Large wedge-shaped defects bilaterally, consistent with high probability for pulmonary embolism. Dictated on workstation # [id number] Dict: 01/04/21 1314 Trans: 01/04/21 1325 [id number] Interpreted by: SILVANA MAY MD Electronically signed by: Assessment/Plan Assessment/Plan (1) Acute and chronic respiratory failure with hypercapnia Status: Acute Assessment & Plan: 01/07: MAT protocol, continue to titrate as tolerated 01/08: CO2 retention, will continue to titrate as tolerated 01/09: Requiring bipap in the AM, will continue to titrate as tolerated 01/10: Titrated to vapotherm 25/45, will transfer to med surg, PT/OT 01/11: Encourage patient to get to chair, will continue to titrate oxygen (2) Left leg DVT Status: Acute Assessment & Plan: 01/07: Patient on tx lovenox, V/Q scan with high probability of PE Qualifiers: Qualified Codes: I82.402 - Acute embolism and thrombosis of unspecified deep veins of left lower extremity (3) Obesity hypoventilation syndrome Status: Acute (4) LAILA on CPAP Status: Acute Assessment & Plan: 01/07: patient to bring home CPAP to hospital (5) Elevated d-dimer Status: Acute (6) Adult BMI 50.0-59.9 kg/sq m Status: Acute AYE DE LA VEGA MD Jan 11, 2021 14:58
[2021-01-11] MEDS: clonazePAM 0.5 MG (KlonoPIN) TAB PO SCH (19:47)
[2021-01-11] MEDS: PANTOPRAZOLE 40 MG (PROTONIX) TAB PO SCH (19:47)
[2021-01-11] MEDS: traZODone 150 MG (DESYREL) TABLET PO SCH (19:47)
[2021-01-11] MEDS: APIXABAN 5 MG (ELIQUIS) TABLET PO SCH (19:47)
[2021-01-12] MEDS: RT-ALBUTEROL/IPRATROPIUM 3 ML (DUONEB) VIAL INH SCH ×6 (02:03→22:54)
[2021-01-12] MEDS: VENlafaxine XR 75 MG (EFFEXOR XR) CAP PO SCH (06:09)
[2021-01-12] MEDS: CYANOCOBALAMIN 1,000 MCG (VITAMIN B-12) TABLET PO SCH (06:09)
[2021-01-12] MEDS: CATHETER FLUSH 10 ML SYR IV SCH ×3 (06:09→20:20)
[2021-01-12] MEDS: POTASSIUM CL 10MEQ/50ML IVPB 50 ML IV SCH (06:15)
[2021-01-12 06:29] LABS: BASOPHILS % (AUTO) 1 % (0-10); EOSINOPHILS # (AUTO) 0.4 10^3/uL (0.0-0.3); EOSINOPHILS % (AUTO) 7 % (0-10); HEMATOCRIT 47 % (40-54); HEMOGLOBIN 15.5 g/dL (13.3-17.7); LYMPHOCYTES # (AUTO) 0.8 10^3/uL (1.0-4.0); LYMPHOCYTES % (AUTO) 12 % (12-44); MEAN CORPUSCULAR HEMOGLOBIN 33 pg (25-34); MEAN CORPUSCULAR HGB CONC 33 g/dL (32-36); MEAN CORPUSCULAR VOLUME 100 fL (80-99); MEAN PLATELET VOLUME 10.4 fL (9.0-12.2); MONOCYTES # (AUTO) 0.5 10^3/uL (0.0-1.0); MONOCYTES % (AUTO) 8 % (0-12); NEUTROPHILS # (AUTO) 4.7 10^3/uL (1.8-7.8); NEUTROPHILS % (AUTO) 73 % (42-75); PLATELET COUNT 196 10^3/uL (130-400); WHITE BLOOD COUNT 6.5 10^3/uL (4.3-11.0)
[2021-01-12 06:40] LABS: ALBUMIN 3.6 GM/DL (3.2-4.5); POTASSIUM 4.1 MMOL/L (3.6-5.0)
[2021-01-12 06:43] LABS: TOTAL PROTEIN 7.6 GM/DL (6.4-8.2)
[2021-01-12 06:44] LABS: BILIRUBIN,TOTAL 0.8 MG/DL (0.1-1.0)
[2021-01-12] MEDS: KCL 20 MEQ TAB (K-DUR) PO SCH (06:45)
[2021-01-12 06:46] LABS: CREATININE SERUM 1.06 MG/DL (0.60-1.30)
[2021-01-12 06:49] LABS: MAGNESIUM 2.1 MG/DL (1.6-2.4)
[2021-01-12] MEDS: MAGNESIUM 1 GM/100 ML IVPB 100 ML IV SCH (06:50)
[2021-01-12 07:47] VITALS: BP 143/78
[2021-01-12] MEDS: meTOprolol TARTRATE 50 MG (LOPRESSOR) TAB PO SCH ×2 (09:04→20:17)
[2021-01-12] MEDS: VITAMIN D3 25 MCG (1,000 UNITS) TABLET PO SCH (09:04)
[2021-01-12] MEDS: GABAPENTIN 300 MG (NEURONTIN) CAP PO SCH ×3 (09:05→20:18)
[2021-01-12] MEDS: ALLOPURINOL 100 MG (ZYLOPRIM) TAB PO SCH (09:05)
[2021-01-12] MEDS: APIXABAN 5 MG (ELIQUIS) TABLET PO SCH ×2 (09:06→20:19)
[2021-01-12] MEDS: MIRABEGRON 25 MG TAB (MYRBETRIQ) PO SCH (09:07)
[2021-01-12] MEDS: MICONAZOLE 2% POWDER (DESENEX AF) 90 GM TOP SCH ×2 (09:07→20:20)
--- NOTE | 2021-01-12 09:12 | Physical Therapy Daily Note ---
PT Daily Note-Current Subjective Pt. in bed, agrees to sit up in chair. No specific complaints. Mental Status Attachments: Oxygen, IV Transfers SCALE: Activities may be completed with or without assistive devices. 9-Spvtvjlaex-erdnmup completes the activity by him/herself with no assistance from a helper. 5-Set-up or Clean-up Assistance-helper sets up or cleans up; patient completes activity. [place] assists only prior to or following the activity. 4-Supervision or Touching Assistance-helper provides verbal cues and/or touching /steadying and/or contact guard assistance as patient completes activity. Assistance may be provided throughout the activity or intermittently. 3-Partial/Moderate Assistance-helper does LESS THAN HALF the effort. [place] lifts, holds or supports trunk or limbs, but provides less than half the effort. 2-Substantial/Maximal Assistance-helper does MORE THAN HALF the effort. [place] lifts or holds trunk or limbs and provides more than half the effort. 8-Tucteguvt-zqvaib does ALL the effort. Patient does none of the effort to complete the activity. Or, the assistance of 2 or more helpers is required for the patient to complete the activity. If activity was not attempted, code reason: 7-Patient Refused. 9-Not Applicable-not attempted and the patient did not perform the activity before the current illness, exacerbation or injury. 10-Not Attempted due to Environmental Limitations-(lack of equipment, weather restraints, etc.). 88-Not Attempted due to Medical Conditions or Safety Concerns. Lying to Sitting/Side of Bed(Q: 6 Sit to Stand (QC): 4 Chair/Ihc-yj-Brhap Xfer(QC): 4 Gait Training Distance: 5 ft to chair Gait Assistive Device: FWW Treatments transfers bed to chair Assessment Current Status: Good Progress, Fair Progress Pt. remains weak and fatigues quickly with ambulating to chair. Pt. reclined in chair post session with call light, all needs met. PT Prison Goals Tag Writer Goals PT Tag Writer Goals Time Frame: Jan 14, 2021 Roll Left & Right (QC): 4 Sit to Lying (QC): 4 Lying-Sitting on Side/Bed(QC): 4 Sit to Stand (QC): 4 Chair/Qgl-te-Slzlq Xfer(QC): 4 Walk 10 feet (QC): 4 Walk 50ft with 2 Turns (QC): 4 PT Plan Treatment/Plan Treatment Plan: Continue Plan of Care Treatment Plan: Bed Mobility, Education, Functional Activity Dash, Functional Strength, Gait, Safety, Therapeutic Exercise, Transfers Treatment Duration: Jan 14, 2021 Frequency: 6 times per week Estimated Hrs Per Day: .25 hour per day Patient and/or Family Agrees t: Yes Time/GCodes Time In: 08 Time Out: 0835 Total Billed Treatment Time: 17 Total Billed Treatment 1, FA 17' DORINA ALSTON PT Jan 12, 2021 09:12
--- NOTE | 2021-01-12 09:39 | Cardiology Progress Note ---
Subjective Date Seen by Provider: Jan 12, 2021 Time Seen by Provider: 09:38 Subjective/Events-last exam Patient is sitting in a chair comfortable, denied any chest pain. Breathing better, still on Vapotherm Review of Systems General: No Chills, No Night Sweats, No Fatigue, No Malaise, No Appetite, No Other HEENT: No Head Aches, No Visual Changes, No Eye Pain, No Ear Pain, No Dysphasia, No Sinus Congestion, No Post Nasal Drip, No Sore Throat, No Other Pulmonary: No Dyspnea, No Cough, No Pleuritic Chest Pain, No Other Cardiovascular: No: Chest Pain, Palpitations, Orthopnea, Paroxysmal Noc. Dyspnea, Edema, Lt Headedness, Other Objective-Cardiology Exam Last Set of Vital Signs Vital Signs 01/12/21 01/12/21 07:35 07:47 Temp 36.9 Pulse 84 Resp 20 B/P (MAP) 143/78 (99) Pulse Ox 93 O2 Delivery Vapotherm O2 Flow Rate 25.00 50.00 FiO2 50 I&O Intake and Output 01/12/21 00:00 Intake Total 2900 ml Output Total 1050 ml Balance 1850 ml Intake Oral 2900 ml Output Urine Total 1050 ml # Bowel Movements 1 General: Alert, Oriented X3, Cooperative, Mild Distress (with minimal activity) Lungs: Normal Air Movement, Other (diminished breath sounds) Heart: Regular Rate, No Murmurs Abdomen: Normal Bowel Sounds, Soft, No Tenderness Extremities: Other (1-2+ pitting edema bilaterally) Skin: No Rashes Neuro: Normal Speech, Sensation Intact Psych/Mental Status: Mental Status NL, Mood NL Results Lab Laboratory Tests 01/12/21 06:15 A/P-Cardiology Admission Diagnosis Acute respiratory failure Pulmonary embolism Hypertension Hyperlipidemia Assessment/Plan Pulmonary embolism with acute respiratory failure occurred on January 05, 2021, recovering slowly, still on Vapotherm. Maintained on Lovenox. I will change to Eliquis 10 mg twice daily and monitor tolerance and response Acute on chronic respiratory failure, still maintained on Vapotherm, managed by primary care team Acute on chronic renal failure, monitor renal function Type II myocardial infarction, mildly elevated troponin probably secondary to hypoxemia, underlying coronary artery disease cannot be entirely excluded. Co ntinue to monitor and conservative management is recommended Deep venous thrombosis with partially occlusive DVT in the mid superficial femoral artery extending to the left popliteal artery and calf vessel of the left lower extremity. No sonographic evidence of any clot on the right side. Obstructive sleep apnea maintained on CPAP. Currently on Vapotherm Hypertension, monitor blood pressure Hyperlipidemia, monitor lipids Morbid obesity, BMI 54 Chronic joint pain. DOREEN MARR MD Jan 12, 2021 09:39
--- NOTE | 2021-01-12 11:07 | Progress Note - Hospitalist ---
Subjective HPI/CC On Admission Date Seen by Provider: Jan 12, 2021 Time Seen by Provider: 11:00 Chief complaint: Shortness of breath with elevated D-dimer History present illness: This is a 70-year-old white male who has a past medical history of morbid obesity with BMI of 52 and LAILA on CPAP and prior DVT in the right leg sustained after a fall who presents to the ER with shortness of breath. Ultrasound showed DVT of the left leg. Patient had been placed on Lovenox therapeutic dose. VQ scan reveals bilateral pulmonary emboli high probability. Echocardiogram ordered showing elevated pulmonary arterial pressure but no right heart strain consistent with obesity hypoventilation syndrome and LAILA on CPAP with morbid obesity. Cardiology consulted. He does use a walker at home. Home meds were restarted Subjective/Events-last exam Just got back into bed after having a bowel movement and appears to be fatigued. Has no new complaints. Review of Systems Neurological: Weakness Objective Exam Vital Signs Vital Signs Date Time Temp Pulse Resp B/P (MAP) Pulse Ox O2 Delivery O2 Flow Rate FiO2 01/12/21 10:18 93 Vapotherm 25.00 50 01/12/21 07:47 36.9 84 20 143/78 (99) Capillary Refill : Less Than 3 Seconds General Appearance: Chronically ill, Obese HEENT: Other Neck: Limited Range of Motion Respiratory: Chest Non Tender, Lungs Clear, Normal Breath Sounds, No Accessory Muscle Use, No Respiratory Distress Cardiovascular: Regular Rate, Rhythm, No Gallop Gastrointestinal: Normal Bowel Sounds, Soft Extremity: Pedal Edema Neurologic/Psychiatric: Alert, Depressed Affect Skin: Normal Color Results/Procedures Lab Laboratory Tests 01/12/21 06:15 Patient resulted labs reviewed. Imaging: Reviewed Imaging Report Assessment/Plan Assessment and Plan Assess & Plan/Chief Complaint Pulmonary emboli Acute on chronic respiratory failure History congestive heart failure Morbid obesity DVT Weakness and deconditioning Obstructive sleep apnea Plan for continued physical therapy pulmonary toilet, on therapeutic Eliquis Discharge planning next week Critical Care Critically Ill Patient Diagnosis/Problems Diagnosis/Problems (1) Pulmonary emboli Status: Acute (2) Acute and chronic respiratory failure with hypercapnia Status: Acute (3) Obesity hypoventilation syndrome Status: Chronic JUAN LOPEZ MD Jan 12, 2021 11:07
[2021-01-12 15:27] VITALS: BP 145/84
[2021-01-12] MEDS: traZODone 150 MG (DESYREL) TABLET PO SCH (20:16)
[2021-01-12] MEDS: PANTOPRAZOLE 40 MG (PROTONIX) TAB PO SCH (20:17)
[2021-01-12] MEDS: clonazePAM 0.5 MG (KlonoPIN) TAB PO SCH (20:17)
[2021-01-12 20:30] VITALS: BP 146/83
[2021-01-12 23:04] VITALS: BP 137/86
[2021-01-13] MEDS: RT-ALBUTEROL/IPRATROPIUM 3 ML (DUONEB) VIAL INH SCH ×4 (02:30→21:17)
[2021-01-13] MEDS: CATHETER FLUSH 10 ML SYR IV SCH ×3 (04:06→19:52)
[2021-01-13 05:29] LABS: BASOPHILS % (AUTO) 1 % (0-10); EOSINOPHILS # (AUTO) 0.2 10^3/uL (0.0-0.3); EOSINOPHILS % (AUTO) 4 % (0-10); HEMATOCRIT 40 % (40-54); HEMOGLOBIN 13.4 g/dL (13.3-17.7); LYMPHOCYTES # (AUTO) 0.9 10^3/uL (1.0-4.0); LYMPHOCYTES % (AUTO) 15 % (12-44); MEAN CORPUSCULAR HEMOGLOBIN 34 pg (25-34); MEAN CORPUSCULAR HGB CONC 34 g/dL (32-36); MEAN CORPUSCULAR VOLUME 100 fL (80-99); MEAN PLATELET VOLUME 10.6 fL (9.0-12.2); MONOCYTES # (AUTO) 0.5 10^3/uL (0.0-1.0); MONOCYTES % (AUTO) 8 % (0-12); NEUTROPHILS # (AUTO) 4.6 10^3/uL (1.8-7.8); NEUTROPHILS % (AUTO) 73 % (42-75); PLATELET COUNT 209 10^3/uL (130-400); WHITE BLOOD COUNT 6.3 10^3/uL (4.3-11.0)
[2021-01-13 05:41] LABS: ALBUMIN 3.2 GM/DL (3.2-4.5); POTASSIUM 3.6 MMOL/L (3.6-5.0)
[2021-01-13 05:42] LABS: CALCIUM 9.2 MG/DL (8.5-10.1)
[2021-01-13 05:43] LABS: TOTAL PROTEIN 6.5 GM/DL (6.4-8.2)
[2021-01-13 05:45] LABS: BILIRUBIN,TOTAL 0.6 MG/DL (0.1-1.0)
[2021-01-13 05:47] LABS: CREATININE SERUM 1.07 MG/DL (0.60-1.30)
[2021-01-13] MEDS: KCL 20 MEQ TAB (K-DUR) PO SCH (05:48)
[2021-01-13] MEDS: POTASSIUM CL 10MEQ/50ML IVPB 50 ML IV SCH (05:48)
[2021-01-13 05:51] VITALS: BP 137/86
[2021-01-13] MEDS: MAGNESIUM 1 GM/100 ML IVPB 100 ML IV SCH (05:51)
[2021-01-13] MEDS: CYANOCOBALAMIN 1,000 MCG (VITAMIN B-12) TABLET PO SCH (06:01)
[2021-01-13] MEDS: VENlafaxine XR 75 MG (EFFEXOR XR) CAP PO SCH (06:01)
[2021-01-13 07:50] VITALS: BP 117/77
[2021-01-13] MEDS: GABAPENTIN 300 MG (NEURONTIN) CAP PO SCH ×3 (08:55→19:47)
[2021-01-13] MEDS: MIRABEGRON 25 MG TAB (MYRBETRIQ) PO SCH (08:56)
[2021-01-13] MEDS: APIXABAN 5 MG (ELIQUIS) TABLET PO SCH ×2 (08:56→19:47)
[2021-01-13] MEDS: ALLOPURINOL 100 MG (ZYLOPRIM) TAB PO SCH (08:56)
[2021-01-13] MEDS: VITAMIN D3 25 MCG (1,000 UNITS) TABLET PO SCH (08:56)
[2021-01-13] MEDS: oxyCODONE/APAP 10/325MG (PERCOCET 10) TABLET PO PRN ×2 (09:00→12:56)
[2021-01-13] MEDS ORDERED: KCL 20 MEQ TAB (K-DUR) PO ONE (09:00)
[2021-01-13] MEDS: MICONAZOLE 2% POWDER (DESENEX AF) 90 GM TOP SCH ×2 (09:01→19:48)
[2021-01-13] MEDS: meTOprolol TARTRATE 50 MG (LOPRESSOR) TAB PO SCH ×2 (09:01→19:44)
--- NOTE | 2021-01-13 10:36 | Cardiology Progress Note ---
Subjective Date Seen by Provider: Jan 13, 2021 Time Seen by Provider: 10:35 Subjective/Events-last exam Patient was seen at bedside, laying down comfortably. Feeling better today, still on Vapotherm Review of Systems General: No Chills, No Night Sweats; Fatigue; No Malaise, No Appetite, No Other HEENT: No Head Aches, No Visual Changes, No Eye Pain, No Ear Pain, No Dysphasia, No Sinus Congestion, No Post Nasal Drip, No Sore Throat, No Other Pulmonary: Dyspnea; No Cough, No Pleuritic Chest Pain, No Other Cardiovascular: No: Chest Pain, Palpitations, Orthopnea, Paroxysmal Noc. Dyspnea, Edema, Lt Headedness, Other Objective-Cardiology Exam Last Set of Vital Signs Vital Signs 01/13/21 01/13/21 07:50 08:00 Temp 37.0 Pulse 92 Resp 20 B/P (MAP) 117/77 (90) Pulse Ox 95 O2 Delivery Vapotherm O2 Flow Rate 25.00 FiO2 45 I&O Intake and Output 01/13/21 00:00 Intake Total 2600 ml Output Total 2820 ml Balance -220 ml Intake Oral 2600 ml Output Urine Total 2820 ml General: Alert, Oriented X3, Cooperative, Mild Distress (with minimal activity) Lungs: Normal Air Movement, Other (diminished breath sounds) Heart: Regular Rate, No Murmurs Abdomen: Normal Bowel Sounds, Soft, No Tenderness Extremities: Other (1-2+ pitting edema bilaterally) Skin: No Rashes Neuro: Normal Speech, Sensation Intact Psych/Mental Status: Mental Status NL, Mood NL Results Lab Laboratory Tests 01/13/21 04:55 A/P-Cardiology Admission Diagnosis Acute respiratory failure Pulmonary embolism Hypertension Hyperlipidemia Assessment/Plan Pulmonary embolism with acute respiratory failure occurred on January 05, 2021, recovering slowly, still on Vapotherm. Maintained on Lovenox. I have changed it to Eliquis 10 mg twice daily Acute on chronic respiratory failure, still maintained on Vapotherm, managed by primary care team Acute on chronic renal failure, monitor renal function Type II myocardial infarction, mildly elevated troponin probably secondary to hypoxemia, underlying coronary artery disease cannot be entirely excluded. Continue to monitor and conservative management is recommended Deep venous thrombosis with partially occlusive DVT in the mid superficial femoral artery extending to the left popliteal artery and calf vessel of the left lower extremity. No sonographic evidence of any clot on the right side. Obstructive sleep apnea maintained on CPAP. Currently on Vapotherm Hypertension, monitor blood pressure Hyperlipidemia, monitor lipids Morbid obesity, BMI 54 Chronic joint pain. DOREEN MARR MD Jan 13, 2021 10:36
--- NOTE | 2021-01-13 11:27 | Progress Note - Hospitalist ---
Subjective HPI/CC On Admission Date Seen by Provider: Jan 13, 2021 Time Seen by Provider: 10:30 Chief complaint: Shortness of breath with elevated D-dimer History present illness: This is a 70-year-old white male who has a past medical history of morbid obesity with BMI of 52 and LAILA on CPAP and prior DVT in the right leg sustained after a fall who presents to the ER with shortness of breath. Ultrasound showed DVT of the left leg. Patient had been placed on Lovenox therapeutic dose. VQ scan reveals bilateral pulmonary emboli high probability. Echocardiogram ordered showing elevated pulmonary arterial pressure but no right heart strain consistent with obesity hypoventilation syndrome and LAILA on CPAP with morbid obesity. Cardiology consulted. He does use a walker at home. Home meds were restarted Subjective/Events-last exam Deacon complains of being constipated this morning. He has not had a bowel movement in 3 days. Denies have any nausea or vomiting. He is thinking about getting his walker brought in from home so he can start walking tomorrow Review of Systems Gastrointestinal: Constipation Objective Exam Vital Signs Vital Signs Date Time Temp Pulse Resp B/P (MAP) Pulse Ox O2 Delivery O2 Flow Rate FiO2 01/13/21 08:00 95 Vapotherm 25.00 45 01/13/21 07:50 37.0 92 20 117/77 (90) Capillary Refill : Less Than 3 Seconds General Appearance: Obese HEENT: Other (Keeps left eye shut) Neck: Limited Range of Motion Respiratory: Lungs Clear, Normal Breath Sounds, No Accessory Muscle Use, No Respiratory Distress Cardiovascular: Regular Rate, Rhythm, No Gallop Gastrointestinal: Normal Bowel Sounds, Non Tender, Soft Extremity: Pedal Edema Neurologic/Psychiatric: Alert, Oriented x3, No Motor/Sensory Deficits, Normal Mood/Affect Results/Procedures Lab Laboratory Tests 01/13/21 04:55 Patient resulted labs reviewed. Imaging: Reviewed Imaging Report Assessment/Plan Assessment and Plan Assess & Plan/Chief Complaint Pulmonary emboli Acute on chronic respiratory failure History congestive heart failure Morbid obesity DVT Weakness and deconditioning Obstructive sleep apnea Constipation Plan for continued physical therapy pulmonary toilet, on therapeutic Eliquis-add MiraLAX and Colace Discharge planning next week Critical Care Critically Ill Patient Diagnosis/Problems Diagnosis/Problems (1) Pulmonary emboli Status: Acute (2) Acute and chronic respiratory failure with hypercapnia Status: Acute (3) Obesity hypoventilation syndrome Status: Chronic SANDNESS,JUAN M MD Jan 13, 2021 11:27
[2021-01-13] MEDS ORDERED: DOCUSATE SODIUM 100 MG (COLACE) CAP PO ONE (11:30)
[2021-01-13 15:40] VITALS: BP 120/63
[2021-01-13] MEDS: polyethylene glycoL POWDER 17 GM (MIRALAX) PACK PO SCH (19:45)
[2021-01-13] MEDS: traZODone 150 MG (DESYREL) TABLET PO SCH (19:47)
[2021-01-13] MEDS: clonazePAM 0.5 MG (KlonoPIN) TAB PO SCH (19:47)
[2021-01-13] MEDS: PANTOPRAZOLE 40 MG (PROTONIX) TAB PO SCH (19:47)
[2021-01-13 23:20] VITALS: BP 143/72
[2021-01-14] MEDS: RT-ALBUTEROL/IPRATROPIUM 3 ML (DUONEB) VIAL INH SCH ×4 (03:04→20:54)
[2021-01-14 03:19] VITALS: BP 159/60
[2021-01-14] MEDS: oxyCODONE/APAP 10/325MG (PERCOCET 10) TABLET PO PRN ×3 (03:21→18:36)
[2021-01-14 05:19] LABS: BASOPHILS % (AUTO) 1 % (0-10); EOSINOPHILS # (AUTO) 0.3 10^3/uL (0.0-0.3); EOSINOPHILS % (AUTO) 6 % (0-10); HEMATOCRIT 37 % (40-54); HEMOGLOBIN 12.5 g/dL (13.3-17.7); LYMPHOCYTES % (AUTO) 20 % (12-44); MEAN CORPUSCULAR HEMOGLOBIN 33 pg (25-34); MEAN CORPUSCULAR HGB CONC 34 g/dL (32-36); MEAN CORPUSCULAR VOLUME 100 fL (80-99); MEAN PLATELET VOLUME 10.2 fL (9.0-12.2); MONOCYTES # (AUTO) 0.5 10^3/uL (0.0-1.0); MONOCYTES % (AUTO) 10 % (0-12); NEUTROPHILS # (AUTO) 3.3 10^3/uL (1.8-7.8); NEUTROPHILS % (AUTO) 63 % (42-75); PLATELET COUNT 198 10^3/uL (130-400); WHITE BLOOD COUNT 5.2 10^3/uL (4.3-11.0)
[2021-01-14 05:33] LABS: ALBUMIN 2.9 GM/DL (3.2-4.5); POTASSIUM 4.1 MMOL/L (3.6-5.0)
[2021-01-14 05:37] LABS: BILIRUBIN,TOTAL 0.5 MG/DL (0.1-1.0)
[2021-01-14 05:39] LABS: CREATININE SERUM 1.1 MG/DL (0.60-1.30)
[2021-01-14 05:42] LABS: MAGNESIUM 1.9 MG/DL (1.6-2.4)
[2021-01-14] MEDS: MAGNESIUM 1 GM/100 ML IVPB 100 ML IV SCH (06:40)
[2021-01-14] MEDS: KCL 20 MEQ TAB (K-DUR) PO SCH (06:40)
[2021-01-14] MEDS: POTASSIUM CL 10MEQ/50ML IVPB 50 ML IV SCH (06:40)
[2021-01-14] MEDS: CYANOCOBALAMIN 1,000 MCG (VITAMIN B-12) TABLET PO SCH (06:42)
[2021-01-14] MEDS: CATHETER FLUSH 10 ML SYR IV SCH ×3 (06:42→21:23)
[2021-01-14] MEDS: VENlafaxine XR 75 MG (EFFEXOR XR) CAP PO SCH (06:43)
[2021-01-14 08:00] VITALS: BP 141/83
--- NOTE | 2021-01-14 08:45 | Progress Note - Cardiology ---
Cardiology SOAP Progress Note Objective: I&O/Vital Signs 01/14/21 01/15/21 01/15/21 01/15/21 20:54 00:00 01:00 02:10 Temp 36.5 Pulse 69 71 Resp 18 B/P (MAP) 112/71 (85) Pulse Ox 92 92 90 O2 Delivery Vapotherm Vapotherm Vapotherm O2 Flow Rate 15.00 15.00 15.00 45.00 FiO2 45 45 01/15/21 01/15/21 01/15/21 01/15/21 04:00 07:00 07:35 07:41 Temp 36.3 Pulse 78 94 Resp 18 B/P (MAP) 113/57 (75) Pulse Ox 94 95 96 O2 Delivery Vapotherm Vapotherm High Flow N/C O2 Flow Rate 15.00 15.00 5.00 45.00 FiO2 45 01/15/21 00:00 Intake Total 1810 ml Output Total 850 ml Balance 960 ml Weight (Pounds): 358 Weight (Ounces): 6.0 Weight (Calculated Kilograms): 162.769991 Constitutional: AAO x 3, well-nourished, other (lethargic) Respiratory: chest expansion is symmetric, chest is bilaterally symmetric, other (good air entry) Cardiovascular: regular rate-rhythm, S1 and S2 Gastrointestional: soft, round Extremities: other (mild bilat LE swelling) Neurologic/Psychiatric: grossly intact Skin: No rash on exposed areas, No ulcerations on exposed areas Results/Procedures: Labs Laboratory Tests 01/14/21 12:15: Blood Gas Puncture Site L RAD, Blood Gas Patient Temperature 37.0, Arterial Blood pH 7.28*L, Arterial Blood Partial Pressure CO2 69H, Arterial Blood Partial Pressure O2 41L, Arterial Blood HCO3 31H, Arterial Blood Total CO2 33.4H, Arterial Blood Oxygen Saturation 69L, Arterial Blood Base Excess 4.9H, Zain Test YES-POS, Blood Gas Ventilator Setting NO, Blood Gas Inspired Oxygen 25 L 01/15/21 05:45: White Blood Count 5.3, Red Blood Count 3.88L, Hemoglobin 13.0L, Hematocrit 39L, Mean Corpuscular Volume 100H, Mean Corpuscular Hemoglobin 34, Mean Corpuscular Hemoglobin Concent 34, Red Cell Distribution Width 12.9, Platelet Count 219, Mean Platelet Volume 10.5, Immature Granulocyte % (Auto) 0, Neutrophils (%) (Auto) 60, Lymphocytes (%) (Auto) 25, Monocytes (%) (Auto) 9, Eosinophils (%) (Auto) 6, Basophils (%) (Auto) 1, Neutrophils # (Auto) 3.2, Lymphocytes # (Auto) 1.3, Monocytes # (Auto) 0.5, Eosinophils # (Auto) 0.3, Basophils # (Auto) 0.1, Immature Granulocyte # (Auto) 0.0, Sodium Level 139, Potassium Level 4.1, Chloride Level 104, Carbon Dioxide Level 23, Anion Gap 12, Blood Urea Nitrogen 14, Creatinine 1.05, Estimat Glomerular Filtration Rate 70, BUN/Creatinine Ratio 13, Glucose Level 111H, Calcium Level 9.0, Corrected Calcium 9.6, Total Bilirubin 0.6, Aspartate Amino Transf (AST/SGOT) 27, Alanine Aminotransferase (ALT/SGPT) 17, Alkaline Phosphatase 95, Total Protein 6.3L, Albumin 3.2 Microbiology 01/05/21 MRSA Screen - Final, Complete MRSA not isolated 01/03/21 Blood Culture - Final, Complete No growth A/P: Assessment: Progressive SOB, necessitating transfer to ICU on 01/05/21 - due to PE (large wedge-shaped defects bilaterally, consistent with high probability for pulmonary embolism per VQ lung scan of 01-04-21) - Echo on 01/04/21: LVEF 55-65%, PASP 30-35 mmHg Acute on chronic renal insufficiency: improving Mildly elevated troponin - probable type 2 TN secondary to transient hypoxia DVT - Partially occlusive deep vein thrombus within the mid superficial femoral artery extending into the left popliteal artery and calf vessels of the left lower extremity. No sonographic evidence of deep venous thrombosis in the right lower extremity. LAILA - CPAP tx HTN HLD, by history Morbid obesity - BMI approx 54 Chronic joint pain - h/o shoulder and bilat knee pain H/o anxiety/depression Plan: Continue anticoag and current regimen Diuretics as needed Replace electrolytes as indicated Would likely need lifetime anticoag JYOTSNA COOPER Jan 14, 2021 08:45
[2021-01-14] MEDS: MIRABEGRON 25 MG TAB (MYRBETRIQ) PO SCH (09:23)
[2021-01-14] MEDS: VITAMIN D3 25 MCG (1,000 UNITS) TABLET PO SCH (09:23)
[2021-01-14] MEDS: GABAPENTIN 300 MG (NEURONTIN) CAP PO SCH ×3 (09:24→21:22)
[2021-01-14] MEDS: meTOprolol TARTRATE 50 MG (LOPRESSOR) TAB PO SCH ×2 (09:24→21:21)
[2021-01-14] MEDS: ALLOPURINOL 100 MG (ZYLOPRIM) TAB PO SCH (09:24)
[2021-01-14] MEDS: MICONAZOLE 2% POWDER (DESENEX AF) 90 GM TOP SCH ×2 (09:24→21:23)
[2021-01-14] MEDS: APIXABAN 5 MG (ELIQUIS) TABLET PO SCH ×2 (09:24→21:22)
--- NOTE | 2021-01-14 09:43 | Progress Note - Cardiology ---
Cardiology SOAP Progress Note Subjective: No cp or palp or syncope Shortness of breath is slowly improving No n/v/d Gen malaise and weakness present, chronic Objective: I&O/Vital Signs 01/13/21 01/14/21 01/14/21 01/14/21 23:20 01:00 03:04 03:19 Temp 36.8 36.9 Pulse 79 70 75 Resp 24 22 B/P (MAP) 143/72 (95) 159/60 (93) Pulse Ox 93 84 94 O2 Delivery Vapotherm Vapotherm Vapotherm O2 Flow Rate 25.00 25.00 25.00 45.00 45.00 FiO2 45 01/14/21 01/14/21 01/14/21 07:00 08:00 08:00 Temp 36.8 Pulse 85 86 Resp 20 B/P (MAP) 141/83 (102) Pulse Ox 93 94 O2 Delivery Vapotherm Vapotherm O2 Flow Rate 25.00 25.00 45.00 FiO2 45 01/14/21 00:00 Intake Total 1728 ml Output Total 1250 ml Balance 478 ml Weight (Pounds): 358 Weight (Ounces): 6.0 Weight (Calculated Kilograms): 162.390258 Constitutional: AAO x 3, well-nourished, other (lethargic) Respiratory: chest expansion is symmetric, chest is bilaterally symmetric, other (good air entry) Cardiovascular: regular rate-rhythm, S1 and S2 Gastrointestional: soft, round Extremities: other (mild bilat LE swelling) Neurologic/Psychiatric: grossly intact Skin: No rash on exposed areas, No ulcerations on exposed areas Results/Procedures: Labs Laboratory Tests 01/14/21 05:08: White Blood Count 5.2, Red Blood Count 3.75L, Hemoglobin 12.5L, Hematocrit 37L, Mean Corpuscular Volume 100H, Mean Corpuscular Hemoglobin 33, Mean Corpuscular Hemoglobin Concent 34, Red Cell Distribution Width 12.8, Platelet Count 198, Mean Platelet Volume 10.2, Immature Granulocyte % (Auto) 1, Neutrophils (%) (Auto) 63, Lymphocytes (%) (Auto) 20, Monocytes (%) (Auto) 10, Eosinophils (%) (Auto) 6, Basophils (%) (Auto) 1, Neutrophils # (Auto) 3.3, Lymphocytes # (Auto) 1.0, Monocytes # (Auto) 0.5, Eosinophils # (Auto) 0.3, Basophils # (Auto) 0.0, Immature Granulocyte # (Auto) 0.0, Sodium Level 139, Potassium Level 4.1, Chloride Level 105, Carbon Dioxide Level 25, Anion Gap 9, Blood Urea Nitrogen 14, Creatinine 1.10, Estimat Glomerular Filtration Rate 66, BUN/Creatinine Ratio 13, Glucose Level 110H, Calcium Level 9.0, Corrected Calcium 9.9, Magnesium Level 1.9, Total Bilirubin 0.5, Aspartate Amino Transf (AST/SGOT) 36H, Alanine Aminotransferase (ALT/SGPT) 19, Alkaline Phosphatase 89, Total Protein 6.0L, Albumin 2.9L Microbiology 01/05/21 MRSA Screen - Final, Complete MRSA not isolated 01/03/21 Blood Culture - Final, Complete No growth Laboratory Tests 01/13/21 04:55 01/14/21 05:08 A/P: Assessment: Progressive SOB, necessitating transfer to ICU on 01/05/21 - due to PE (large wedge-shaped defects bilaterally, consistent with high probability for pulmonary embolism per VQ lung scan of 01-04-21) - Echo on 01/04/21: LVEF 55-65%, PASP 30-35 mmHg Acute on chronic renal insufficiency: improving Mildly elevated troponin - probable type 2 NE secondary to transient hypoxia DVT - Partially occlusive deep vein thrombus within the mid superficial femoral artery extending into the left popliteal artery and calf vessels of the left lower extremity. No sonographic evidence of deep venous thrombosis in the right lower extremity. LAILA - CPAP tx HTN HLD, by history Morbid obesity - BMI approx 54 Chronic joint pain - h/o shoulder and bilat knee pain H/o anxiety/depression Plan: Continue anticoag and current regimen Diuretics as needed Replace electrolytes as indicated We have advised increased ambulation. May benefit from physical therapy post discharge TARA BLANCHARD MD [facility] Jan 14, 2021 09:43
[2021-01-14 11:55] VITALS: BP 133/84
--- NOTE | 2021-01-14 12:17 | Occupational Therapy Eval ---
OT Evaluation-General/PLF Medical Diagnosis Admission Date Jan 04, 2021 at 00:06 Medical Diagnosis: hypoxia/elevated D-dimer/CKD Onset Date: Jan 04, 2021 Therapy Diagnosis Therapy Diagnosis: decreased ADL status Height/Weight Height (Feet): 5 Height (Inches): 10.00 Weight (Pounds): 358 Weight (Ounces): 6.0 Precautions Precautions/Isolations: Fall Prevention, Standard Precautions Referral Physician: Dionne Referral Reason: Evaluation/Treatment Medical History Pertinent Medical History: Arthritis, HTN Additional Medical History obesity, LAILA on CPAP, DVT, HTN, GERD, Diverticulitis, arthritis, anxiety/depression Current History present to ED with SOB. Ultrasound showed DVT L leg Social History Home: Single Level Current Living Status: Spouse Entry Into Home: Ramp ADL-Prior Level of Function SCALE: Activities may be completed with or without assistive devices. 9-Tcrkywmzxg-odvvpck completes the activity by him/herself with no assistance from a helper. 5-Set-up or Clean-up Assistance-helper sets up or cleans up; patient completes activity. [place] assists only prior to or following the activity. 4-Supervision or Touching Assistance-helper provides verbal cues and/or touching/steadying and/or contact guard assistance as patient completes activity. Assistance may be provided throughout the activity or intermittently. 3-Partial/Moderate Assistance-helper does LESS THAN HALF the effort. [place] lif ts, holds or supports trunk or limbs, but provides less than half the effort. 2-Substantial/Maximal Assistance-helper does MORE THAN HALF the effort. [place] lifts or holds trunk or limbs and provides more than half the effort. 6-Opcqhilju-ylmvrr does ALL the effort. Patient does none of the effort to complete the activity. Or, the assistance of 2 or more helpers is required for the patient to complete the activity. If activity was not attempted, code reason: 7-Patient Refused. 9-Not Applicable-not attempted and the patient did not perform the activity before the current illness, exacerbation or injury. 10-Not Attempted due to Environmental Limitations-(lack of equipment, weather restraints, etc.). 88-Not Attempted due to Medical Conditions or Safety Concerns. ADL PLOF Comments Pt reports he was independent with self care and functional mobility at OF, using 4WW. Upon further discussion, pt revealed he does not have assistance, but is typically only able to wash above the waist in the shower. To was the LEs, he just lets the soapy water run down. Pt indicates he can complete toileting and dressing independently. He lives with his Ex- who isn't able to provide much assistance due to recent heart surgery. Self Care: Needed Some Help Functional Cognition: Independent DME/Equipment: Bath Chair, Tub/Shower OT Current Status Subjective Pt up in recliner, agreeable to OT Tx. Mental Status/Objective Patient Orientation: Person, Place, Situation Attachments: Daniel Catheter, Oxygen (VapoTherm) Current Upper Extremity ROM WFL, BUE shoulder flexion to approx 130 degrees Upper Extremity Strength grossly 3+/5 ADL-Treatment Eating (QC): 6 (Pt able to open soda can, reports IND with meals.) Oral Hygiene (QC): 5 (based on clincial judgment.) On/Off Footwear (QC): 3 (Min A with threading sock onto RLE, pt able to manage the rest of the way. Pt doffed/donned LLE sock with increased time, able to doff R sock.) Toileting Hygiene (QC): 1 (catheter.) Other Treatments Pt up in recliner, agreeable to OT Tx. OT educated pt on purpose and benefit of OT, he verbalized understanding. Pt then provided information about PLOF and home set up. Pt participated in UE screen. Pt able to doff BLE gripper socks, donned LLE with increased time. O2 came out of pt's nose during task, OT held O2 in place as pt completed task. O2 saturation at 95% after L sock. Pt then attempted R sock a few times, unable to get it started as the sock kept coming off his toes. OT started sock for pt, then he was able to pull on the rest of the way. Pt required some encouragement to complete task. Pt requests soda, nurse stated pt OK to have. OT provided pt with can, he was able to open can and drink independently. Post tx, pt in chair, call light in reach and all needs met. Education OT Patient Education: Correct positioning, Energy conservation, Modified ADL techniques, Progress toward Goal/Update tx plan, Purpose of tx/functional acti vities, Rehab process Teaching Recipient: Patient Teaching Methods: Discussion Response to Teaching: Verbalize Understanding OT Custodial Goals Custodial Goals Time Frame: Jan 25, 2021 Eating (QC): 6 Oral Hygiene (QC): 6 Toileting Hygiene (QC): 4 Shower/Bathe Self (QC): 3 Upper Body Dressing (QC): 5 Lower Body Dressing (QC): 4 On/Off Footwear (QC): 4 Additional Goals: 1-Demonstrate ADL Tasks, 2-Verbalize Understanding, 3- ImproveStrength/Dash 1=Demonstrate adherence to instructed precautions during ADL tasks. 2=Patient will verbalize/demonstrate understanding of assistive devices/modifications for ADL. 3=Patient will improve strength/tolerance for activity to enable patient to perform ADL's. OT Education/Plan Problem List/Assessment Assessment: Decreased Activ Tolerance, Decreased UE Strength, Impaired Funct Balance, Impaired I ADL's, Impaired Self-Care Skills Discharge Recommendations Plan/Recommendations: Continue POC Treatment Plan/Plan of Care Patient would benefit from OT for education, treatment and training to promote independence in ADL's, mobility, safety and/or upper extremity function for ADL's. Plan of Care: ADL Retraining, Functional Mobility, UE Funct Exercise/Act Treatment Duration: Jan 25, 2021 Frequency: 5 times per week Estimated Hrs Per Day: .25 hour per day Rehab Potential: Fair Time/GCodes Start Time: 11:29 Stop Time: 11:47 Total Time Billed (hr/min): 18 Billed Treatment Time 1, DEVIN WIN OT Jan 14, 2021 12:17
[2021-01-14 12:22] LABS: ABG BASE EXCESS 4.9 MMOL/L (-2.5-2.5); ABG OXYGEN SATURATION 69 % (94-100); ABG PCO2 69 MMHG (35-45); ABG PO2 41 MMHG (79-93); ABG TCO2 33.4 MMOL/L (21.0-31.0)
[2021-01-14 12:23] LABS: ABG PH 7.28 (7.37-7.43)
[2021-01-14 12:24] LABS: ALLENS TEST YES-POS; INSPIRED O2 25 L; VENTILATOR NO
--- NOTE | 2021-01-14 13:31 | Progress Note - Hospitalist ---
VINICIUS CAMPOS Leticia 01/14/21 1331: Subjective HPI/CC On Admission Date Seen by Provider: Jan 14, 2021 Time Seen by Provider: 08:11 CC: SOB with elevated D-Dimer Subjective/Events-last exam Mr. Sierra is a 70 y/o male with a PMHx of obesity, LAILA, and prior DVT who presented to the ED with SOB. He had a DVT of the left leg as seen on U/S with VQ scan showing a probable PE. This morning he reports he is breathing okay but he could be breathing better. He says his Vapotherm feels too strong. He is working with PT and OT and wanting to get his walker from home so he can move around more. He is a possible inpatient rehab candidate. He also complained of a tremor in his right hand that began about 1 year ago. Review of Systems General: No Chills; Fatigue Pulmonary: No Dyspnea, No Cough Cardiovascular: No: Chest Pain, Palpitations Gastrointestinal: No: Nausea, Vomiting, Abdominal Pain, Diarrhea, Constipation Musculoskeletal: back pain (Sore on tailbone) Neurological: No: Weakness, Confusion Focused Exam Capillary Refill: Less Than 3 Seconds Peripheral Pulses: 2+ Radial Pulses (R), 2+ Radial Pulses (L) Objective Exam Vital Signs Vital Signs Date Time Temp Pulse Resp B/P (MAP) Pulse Ox O2 Delivery O2 Flow Rate FiO2 01/14/21 11:55 36.7 66 20 133/84 (100) 92 Vapotherm 25.00 45.00 01/14/21 10:17 45 Capillary Refill : Less Than 3 Seconds General Appearance: Mild Distress (Patient appears in mild pain from bedsore), Obese HEENT: PERRL/EOMI, Moist Mucous Membranes Neck: Normal Inspection, Non Tender; No Lymphadenopathy (L), No Lymphadenopathy (R) Respiratory: Chest Non Tender, Lungs Clear, Normal Breath Sounds, No Accessory Muscle Use, No Respiratory Distress Cardiovascular: Regular Rate, Rhythm, No Murmur, Normal Peripheral Pulses, Other (B/L LE pitting edema, 1+) Gastrointestinal: Normal Bowel Sounds, Non Tender, Soft Extremity: Normal Capillary Refill, Non Tender, Pedal Edema Neurologic/Psychiatric: Alert, Oriented x3, No Motor/Sensory Deficits, Normal Mood/Affect, clinical applications specialist II-XII Norm as Tested Skin: Warm/Dry Lymphatic: No Adenopathy (Head and neck) Results/Procedures Lab Laboratory Tests 01/14/21 05:08 Patient resulted labs reviewed. Imaging: Reviewed Imaging Report Assessment/Plan Assessment and Plan Assess & Plan/Chief Complaint Assessment SOB - Most likely d/t pulmonary emboli Acute on chronic respiratory failure - Requiring Vapotherm H/o CHF Morbid obesity DVT Weakness and deconditioning Obstructive sleep apnea Plan Consider moving to inpatient rehab Continue PT and OT Continue breathing treatments as needed Continue ABIMBOLA Carcamo DO 01/15/21 0601: Subjective Subjective/Events-last exam Pt doing okay Appears to be very declined since last seen Social work consult placed, maybe [facility] could be an option and PT and OT will be ordered May need [facility] vs. detention Review of Systems General: Fatigue Neurological: Confusion Objective Exam General Appearance: WD/WN, Anxious, Chronically ill, Mild Distress (Patient appears in mild pain from bedsore), Obese, Other (On Vapotherm) Respiratory: Accessory Muscle Use, Decreased Breath Sounds Cardiovascular: Regular Rate, Rhythm Neurologic/Psychiatric: Alert, Oriented x3, No Motor/Sensory Deficits, Normal Mood/Affect Assessment/Plan Assessment and Plan Assess & Plan/Chief Complaint Assessment: Acute on chronic respiratory failure Bilateral pulmonary emboli Super morbid obesity BMI 52 Plan: Vapotherm BiPAP [facility] [place] Supervisory-Addendum Brief Verification & Attestation Participated in pt care: history, MDM, physical Personally performed: exam, history, MDM, supervision of care Care discussed with: Medical Student Procedures: n/a Results interpretation: Verified all documentation Verification and Attestation of Medical Student E/M Service A medical student performed and documented this service in my presence. I reviewed and verified all information documented by the medical student and made modifications to such information, when appropriate. I personally performed the physical exam and medical decision making. Abimbola Taveras, Jan 15, 2021,05:59 VINICIUS CAMPOS Jan 14, 2021 13:31 ABIMBOLA TAVERAS DO Jan 15, 2021 06:01
--- NOTE | 2021-01-14 14:16 | Physical Therapy Daily Note ---
PT Daily Note-Current Subjective Patient agrees to PT. Mental Status Attachments: Oxygen (vapotherm 25/45), Daniel Catheter Transfers SCALE: Activities may be completed with or without assistive devices. 2-Eqagomonha-aoysqlt completes the activity by him/herself with no assistance fr om a helper. 5-Set-up or Clean-up Assistance-helper sets up or cleans up; patient completes activity. [place] assists only prior to or following the activity. 4-Supervision or Touching Assistance-helper provides verbal cues and/or touching/steadying and/or contact guard assistance as patient completes activity. Assistance may be provided throughout the activity or intermittently. 3-Partial/Moderate Assistance-helper does LESS THAN HALF the effort. [place] lifts, holds or supports trunk or limbs, but provides less than half the effort. 2-Substantial/Maximal Assistance-helper does MORE THAN HALF the effort. [place] lifts or holds trunk or limbs and provides more than half the effort. 6-Cshhmldtf-mhkjrs does ALL the effort. Patient does none of the effort to complete the activity. Or, the assistance of 2 or more helpers is required for the patient to complete the activity. If activity was not attempted, code reason: 7-Patient Refused. 9-Not Applicable-not attempted and the patient did not perform the activity before the current illness, exacerbation or injury. 10-Not Attempted due to Environmental Limitations-(lack of equipment, weather restraints, etc.). 88-Not Attempted due to Medical Conditions or Safety Concerns. Sit to Lying (QC): 6 Lying to Sitting/Side of Bed(Q: 6 Sit to Stand (QC): 4 Gait Training Does the Patient Walk?: Yes Distance: 20' Walk 10 feet (QC): 4 (SBA) Gait Assistive Device: FWW restricted by vapotherm tubing/safe and functional gait sequence Assessment Patient requires time to complete all functional tasks. Vapotherm tubing easily comes off patient due to weight of tubing. Increase activity as allow. PT Stud Sheep Farmer Goals Stud Sheep Farmer Goals PT Stud Sheep Farmer Goals Time Frame: Jan 26, 2021 Roll Left & Right (QC): 4 Sit to Lying (QC): 4 Lying-Sitting on Side/Bed(QC): 4 Sit to Stand (QC): 4 Chair/Pia-ec-Gbemp Xfer(QC): 4 Walk 10 feet (QC): 4 Walk 50ft with 2 Turns (QC): 4 PT Plan Treatment/Plan Treatment Plan: Continue Plan of Care Treatment Plan: Bed Mobility, Education, Functional Activity Dash, Functional Strength, Gait, Safety, Therapeutic Exercise, Transfers Treatment Duration: Jan 26, 2021 Frequency: 6 times per week Estimated Hrs Per Day: .25 hour per day Patient and/or Family Agrees t: Yes Time/GCodes Time In: 1350 Time Out: 1403 Total Billed Treatment Time: 13 Total Billed Treatment 1 visit GT 13 min SAMMY ZAVALA PT Jan 14, 2021 14:16
--- NOTE | 2021-01-14 14:27 | Diagnostic Imaging Report ---
INDICATION: Follow-up pneumonia. COMPARISON: 01/08/2021. FINDINGS: Single frontal radiographic view of the chest was obtained and shows normal cardiac silhouette and pulmonary vasculature. Lungs are now clear. There is no focal consolidation, large effusion, nor pneumothorax. Osseous structures show no gross acute abnormalities. IMPRESSION: 1. No acute cardiopulmonary process. Dictated by: Dictated on workstation # [id number]
[2021-01-14 15:56] VITALS: BP 124/76
[2021-01-14 20:00] VITALS: BP 122/76
[2021-01-14] MEDS: polyethylene glycoL POWDER 17 GM (MIRALAX) PACK PO SCH (21:20)
[2021-01-14] MEDS: PANTOPRAZOLE 40 MG (PROTONIX) TAB PO SCH (21:22)
[2021-01-14] MEDS: traZODone 150 MG (DESYREL) TABLET PO SCH (21:22)
[2021-01-14] MEDS: clonazePAM 0.5 MG (KlonoPIN) TAB PO SCH (21:22)
[2021-01-15] VITALS: BP 112/71
[2021-01-15] MEDS: RT-ALBUTEROL/IPRATROPIUM 3 ML (DUONEB) VIAL INH SCH ×4 (02:10→22:27)
[2021-01-15 04:00] VITALS: BP 113/57
[2021-01-15 06:05] LABS: BASOPHILS # (AUTO) 0.1 10^3/uL (0.0-0.1); BASOPHILS % (AUTO) 1 % (0-10); EOSINOPHILS # (AUTO) 0.3 10^3/uL (0.0-0.3); EOSINOPHILS % (AUTO) 6 % (0-10); HEMATOCRIT 39 % (40-54); LYMPHOCYTES # (AUTO) 1.3 10^3/uL (1.0-4.0); LYMPHOCYTES % (AUTO) 25 % (12-44); MEAN CORPUSCULAR HEMOGLOBIN 34 pg (25-34); MEAN CORPUSCULAR HGB CONC 34 g/dL (32-36); MEAN CORPUSCULAR VOLUME 100 fL (80-99); MEAN PLATELET VOLUME 10.5 fL (9.0-12.2); MONOCYTES # (AUTO) 0.5 10^3/uL (0.0-1.0); MONOCYTES % (AUTO) 9 % (0-12); NEUTROPHILS # (AUTO) 3.2 10^3/uL (1.8-7.8); NEUTROPHILS % (AUTO) 60 % (42-75); PLATELET COUNT 219 10^3/uL (130-400); WHITE BLOOD COUNT 5.3 10^3/uL (4.3-11.0)
[2021-01-15 06:13] LABS: ALBUMIN 3.2 GM/DL (3.2-4.5)
[2021-01-15 06:14] LABS: POTASSIUM 4.1 MMOL/L (3.6-5.0)
[2021-01-15] MEDS: CYANOCOBALAMIN 1,000 MCG (VITAMIN B-12) TABLET PO SCH (06:15)
[2021-01-15] MEDS: CATHETER FLUSH 10 ML SYR IV SCH ×3 (06:15→21:55)
[2021-01-15 06:16] LABS: TOTAL PROTEIN 6.3 GM/DL (6.4-8.2)
[2021-01-15] MEDS: VENlafaxine XR 75 MG (EFFEXOR XR) CAP PO SCH (06:17)
[2021-01-15 06:18] LABS: BILIRUBIN,TOTAL 0.6 MG/DL (0.1-1.0)
[2021-01-15 06:19] LABS: CREATININE SERUM 1.05 MG/DL (0.60-1.30)
[2021-01-15] MEDS: GABAPENTIN 300 MG (NEURONTIN) CAP PO SCH ×3 (08:06→21:54)
[2021-01-15] MEDS: ALLOPURINOL 100 MG (ZYLOPRIM) TAB PO SCH (08:06)
[2021-01-15] MEDS: meTOprolol TARTRATE 50 MG (LOPRESSOR) TAB PO SCH ×2 (08:06→21:54)
[2021-01-15] MEDS: APIXABAN 5 MG (ELIQUIS) TABLET PO SCH ×2 (08:07→21:55)
[2021-01-15] MEDS: MIRABEGRON 25 MG TAB (MYRBETRIQ) PO SCH (08:07)
[2021-01-15] MEDS: VITAMIN D3 25 MCG (1,000 UNITS) TABLET PO SCH (08:07)
[2021-01-15] MEDS: MICONAZOLE 2% POWDER (DESENEX AF) 90 GM TOP SCH ×2 (08:10→21:56)
[2021-01-15] MEDS: DICLOFENAC 1% GEL 100 GM (VOLTAREN) TUBE TOP PRN (08:20)
[2021-01-15 08:22] VITALS: BP 122/77
--- NOTE | 2021-01-15 08:23 | Pulmonary Consultation ---
History of Present Illness History of Present Illness Date Seen by Provider: Jan 15, 2021 Time Seen by Provider: 09:09 Date of Admission 70 y old man admitted for acute hypoxemic resp failure in the context of bilat PE/ LAILA/pulm HTN. Pt is on Elaquis for anticoagulation and 5% high flow o2. Pt denies recent traveling or flying. He spends a lot of time in his bed and recliner. He states that he feels better and the sob improved since he got admitted; denies cp/ cough; leg swelling improved. Allergies and Home Medications Allergies Coded Allergies: Penicillins (Verified Allergy, Mild, 12/15/18) ampicillin (Verified Allergy, Mild, RASH, 12/15/18) sulfacetamide (Verified Allergy, Mild, "MADE ME FEEL BAD", 03/19/15) egg (Verified Allergy, Unknown, 12/15/18) FROM UNCODED ALLERGIES Home Medications Alendronate Sodium 70 Mg Tablet, 70 MG PO WED, (Reported) Allopurinol 100 Mg Tablet, 100 MG PO DAILY, (Reported) Atorvastatin Calcium 80 Mg Tablet, 80 MG PO HS, (Reported) Cholecalciferol (Vitamin D3) 25 Mcg Tablet, 25 MCG PO DAILY, (Reported) Clonazepam 0.5 Mg Tablet, 0.5 MG PO HS, (Reported) Cyanocobalamin (Vitamin B-12) 500 Mcg Tablet, 500 MCG PO DAILY, (Reported) Diclofenac Sodium 100 Gm Gel..gram., 1 APPLIC TOP TID PRN for PAIN-BREAKTHROUGH, (Reported) APPLIES TO LEFT KNEE Gabapentin 300 Mg Capsule, 900 MG PO TID, (Reported) TAKES 3 (300MG) CAPS Garlic 100 Mg Tablet, 100 MG PO BID, (Reported) Levetiracetam 750 Mg Tablet, 750 MG PO BID, (Reported) Metoprolol Tartrate 50 Mg Tablet, 50 MG PO BID, (Reported) Mirabegron 25 Mg Tab.er.24h, 25 MG PO HS, (Reported) Oxycodone HCl/Acetaminophen 1 Each Tablet, 1 EA PO Q4 -6H PRN for PAIN-MODERATE (5-7), (Reported) Pantoprazole Sodium 40 Mg Tablet.dr, 40 MG PO HS, (Reported) Tizanidine HCl 4 Mg Tablet, 4 MG PO TID PRN for MUSCLE SPASMS, (Reported) Venlafaxine HCl 150 Mg Cap.er.24h, 150 MG PO DAILY, (Reported) Past Medical/Social/Family Hx Patient Social History Marrital Status: single Employed/Student: retired Tobacco Use?: No Smoking Status: Never a Smoker Use of E-Cig and/or Vaping dev: No Substance use?: No Alcohol Use?: No Pt stated abuse/neglect: No Immunizations Up To Date Influenza Vaccine Up-to-Date: No; Not Current First/Initial COVID19 Vaccinat: PFIZER- COVID19 Vaccination Don: PFIZER- Date of Pneumonia Vaccine: Mar 19, 2013 Current Status Advance Directives: No Communicates: Verbally Primary Language: Occitan Preferred Spoken Language: Occitan Is interpretation needed?: No Sensory deficits: Vision impairment Implanted or Applied Medical D: None Past Medical History LAILA, HTN VTE Review of Systems Constitutional: see HPI Respiratory: dyspnea on exertion, orthopnea Sepsis Event Evaluation Height, Weight, BMI Height: 5'10.00" Weight: 358lbs. 6.0oz. 162.990867rv; 53.20 BMI Method:Stated Exam Exam Patient acknowledged, consented, and participated in this virtual visit which was conducted using real time audio/video Vital Signs Date Time Temp Pulse Resp B/P (MAP) Pulse Ox O2 Delivery O2 Flow Rate FiO2 01/15/21 07:41 96 High Flow N/C 5.00 01/15/21 07:35 95 Vapotherm 15.00 45 01/15/21 07:00 94 01/15/21 04:00 36.3 78 18 113/57 (75) 94 Vapotherm 15.00 45.00 01/15/21 02:10 90 Vapotherm 15.00 45 01/15/21 01:00 71 01/15/21 00:00 36.5 69 18 112/71 (85) 92 Vapotherm 15.00 45.00 01/14/21 20:54 92 Vapotherm 15.00 45 01/14/21 20:00 Vapotherm 25.00 45 01/14/21 20:00 37.0 75 20 122/76 (91) 93 Vapotherm 15.00 45.00 01/14/21 19:51 82 01/14/21 15:56 36.6 74 20 124/76 (92) 93 Vapotherm 15.00 45.00 01/14/21 15:20 94 Vapotherm 15.00 45 01/14/21 13:00 70 01/14/21 11:55 36.7 66 20 133/84 (100) 92 Vapotherm 25.00 45.00 01/14/21 10:17 92 Vapotherm 25.00 45 I & O 01/15/21 07:00 Intake Total 2290 ml Output Total 1650 ml Balance 640 ml Height & Weight Height: 5'10.00" Weight: 358lbs. 6.0oz. 162.249248md; 53.20 BMI Method:Stated General Appearance: No Apparent Distress, WD/WN, Anxious, Chronically ill, Mild Distress (Patient appears in mild pain from bedsore), Obese, Other (On Vapotherm) HEENT: PERRL/EOMI, Moist Mucous Membranes Neck: Normal Inspection, Non Tender; No Lymphadenopathy (L), No Lymphadenopathy (R) Respiratory: Accessory Muscle Use, Decreased Breath Sounds Cardiovascular: Regular Rate, Rhythm Capillary Refill: Less Than 3 Seconds Peripheral Pulses: 1+ Dorsalis Pedis (R) (see free text), 1+ Left Dors-Pedis (L); 2+ Radial Pulses (R), 2+ Radial Pulses (L) Extremity: Normal Capillary Refill, Non Tender, Pedal Edema Neurologic/Psychiatric: Alert, Oriented x3, No Motor/Sensory Deficits, Normal Mood/Affect Skin: Warm/Dry Lymphatic: No Adenopathy (Head and neck) Results Lab Laboratory Tests 01/14/21 05:08 01/15/21 05:45 Assessment/Plan Assessment/Plan Acute hypoxemic resp failure in the context of LAILA/ bilat PE -anticoagulation -high flow o2 5l -check abg and cxray -outpatient psg -pulm htn multifactorial: laila, pe -home o2/ in rehab considered start BIPAP 15/10 at night dw patient in details GAEL BALLESTEROS MD Jan 15, 2021 08:23
--- NOTE | 2021-01-15 10:20 | Progress Note - Cardiology ---
Cardiology SOAP Progress Note Subjective: Lying in bed C/O "aching all over" No c/o CP Feels SOB has improved Gen weakness Objective: I&O/Vital Signs 01/17/21 01/17/21 01/18/21 01/18/21 20:55 21:08 00:02 03:44 Temp 36.4 36.0 Pulse 70 68 Resp 18 18 B/P (MAP) 119/63 (81) 134/85 (101) Pulse Ox 93 92 94 O2 Delivery High Flow N/C High Flow N/C High Flow N/C High Flow N/C O2 Flow Rate 4.00 4.00 4.00 4.00 01/18/21 08:00 Temp 36.4 Pulse 71 Resp 20 B/P (MAP) 133/62 (85) Pulse Ox 94 O2 Delivery High Flow N/C O2 Flow Rate 4.00 01/18/21 00:00 Intake Total 1686 ml Output Total 1640 ml Balance 46 ml Weight (Pounds): 358 Weight (Ounces): 6.0 Weight (Calculated Kilograms): 162.248400 Constitutional: AAO x 3, well-nourished, other (lethargic) Respiratory: chest expansion is symmetric, chest is bilaterally symmetric, other (good air entry) Cardiovascular: regular rate-rhythm, S1 and S2 Gastrointestional: soft, round Extremities: other (mild bilat LE swelling) Neurologic/Psychiatric: grossly intact Skin: No rash on exposed areas, No ulcerations on exposed areas Results/Procedures: Labs Microbiology 01/05/21 MRSA Screen - Final, Complete MRSA not isolated 01/03/21 Blood Culture - Final, Complete No growth A/P: Assessment: Progressive SOB, necessitating transfer to ICU on 01/05/21 - due to PE (large wedge-shaped defects bilaterally, consistent with high probability for pulmonary embolism per VQ lung scan of 01-04-21) - Echo on 01/04/21: LVEF 55-65%, PASP 30-35 mmHg Acute on chronic renal insufficiency: improving Mildly elevated troponin - probable type 2 [place] secondary to transient hypoxia DVT - Partially occlusive deep vein thrombus within the mid superficial femoral artery extending into the left popliteal artery and calf vessels of the left lower extremity. No sonographic evidence of deep venous thrombosis in the right lower extremity. LAILA - CPAP tx HTN HLD, by history Morbid obesity - BMI approx 54 Chronic joint pain - h/o shoulder and bilat knee pain H/o anxiety/depression Plan: Continue anticoag and current regimen Diuretics as needed Replace electrolytes as indicated We have advised increased ambulation. May benefit from physical therapy post discharge JYOTSNA COOPER Jan 15, 2021 10:20
--- NOTE | 2021-01-15 10:47 | Progress Note - Cardiology ---
Cardiology SOAP Progress Note Subjective: Shortness of breath modestly improved No cp No palp or syncope Gen malaise and weakness present No n/v/d Objective: I&O/Vital Signs 01/15/21 01/15/21 01/15/21 01/15/21 00:00 01:00 02:10 04:00 Temp 36.5 36.3 Pulse 69 71 78 Resp 18 18 B/P (MAP) 112/71 (85) 113/57 (75) Pulse Ox 92 90 94 O2 Delivery Vapotherm Vapotherm Vapotherm O2 Flow Rate 15.00 15.00 15.00 45.00 45.00 FiO2 45 01/15/21 01/15/21 01/15/21 01/15/21 07:00 07:35 07:41 08:22 Temp 36.6 Pulse 94 89 Resp 18 B/P (MAP) 122/77 (92) Pulse Ox 95 96 95 O2 Delivery Vapotherm High Flow N/C High Flow N/C O2 Flow Rate 15.00 5.00 5.00 FiO2 45 01/15/21 09:00 O2 Delivery High Flow N/C O2 Flow Rate 5.00 01/15/21 00:00 Intake Total 1810 ml Output Total 850 ml Balance 960 ml Weight (Pounds): 358 Weight (Ounces): 6.0 Weight (Calculated Kilograms): 162.103550 Constitutional: AAO x 3, well-nourished, other (lethargic) Respiratory: chest expansion is symmetric, chest is bilaterally symmetric, other (good air entry) Cardiovascular: regular rate-rhythm, S1 and S2 Gastrointestional: soft, round Extremities: other (mild bilat LE swelling) Neurologic/Psychiatric: grossly intact Skin: No rash on exposed areas, No ulcerations on exposed areas Results/Procedures: Labs Laboratory Tests 01/14/21 12:15: Blood Gas Puncture Site L RAD, Blood Gas Patient Temperature 37.0, Arterial Blood pH 7.28*L, Arterial Blood Partial Pressure CO2 69H, Arterial Blood Partial Pressure O2 41L, Arterial Blood HCO3 31H, Arterial Blood Total CO2 33.4H, Arterial Blood Oxygen Saturation 69L, Arterial Blood Base Excess 4.9H, Zain Test YES-POS, Blood Gas Ventilator Setting NO, Blood Gas Inspired Oxygen 25 L 01/15/21 05:45: White Blood Count 5.3, Red Blood Count 3.88L, Hemoglobin 13.0L, Hematocrit 39L, Mean Corpuscular Volume 100H, Mean Corpuscular Hemoglobin 34, Mean Corpuscular Hemoglobin Concent 34, Red Cell Distribution Width 12.9, Platelet Count 219, Mean Platelet Volume 10.5, Immature Granulocyte % (Auto) 0, Neutrophils (%) (Auto) 60, Lymphocytes (%) (Auto) 25, Monocytes (%) (Auto) 9, Eosinophils (%) (Auto) 6, Basophils (%) (Auto) 1, Neutrophils # (Auto) 3.2, Lymphocytes # (Auto) 1.3, Monocytes # (Auto) 0.5, Eosinophils # (Auto) 0.3, Basophils # (Auto) 0.1, Immature Granulocyte # (Auto) 0.0, Sodium Level 139, Potassium Level 4.1, Chloride Level 104, Carbon Dioxide Level 23, Anion Gap 12, Blood Urea Nitrogen 14, Creatinine 1.05, Estimat Glomerular Filtration Rate 70, BUN/Creatinine Ratio 13, Glucose Level 111H, Calcium Level 9.0, Corrected Calcium 9.6, Total Bilirubin 0.6, Aspartate Amino Transf (AST/SGOT) 27, Alanine Aminotransferase (ALT/SGPT) 17, Alkaline Phosphatase 95, Total Protein 6.3L, Albumin 3.2 Microbiology 01/05/21 MRSA Screen - Final, Complete MRSA not isolated 01/03/21 Blood Culture - Final, Complete No growth Laboratory Tests 01/14/21 05:08 01/15/21 05:45 A/P: Assessment: Progressive SOB, necessitating transfer to ICU on 01/05/21 - due to PE (large wedge-shaped defects bilaterally, consistent with high probability for pulmonary embolism per VQ lung scan of 01-04-21) - Echo on 01/04/21: LVEF 55-65%, PASP 30-35 mmHg Acute on chronic renal insufficiency: resolved Mildly elevated troponin at presentation - probable type 2 [place] secondary to transient hypoxia DVT - Partially occlusive deep vein thrombus within the mid superficial femoral artery extending into the left popliteal artery and calf vessels of the left lower extremity. No sonographic evidence of deep venous thrombosis in the right lower extremity. LAILA - CPAP tx HTN HLD, by history Morbid obesity - BMI approx 54 Chronic joint pain - h/o shoulder and bilat knee pain H/o anxiety/depression Plan: Continue anticoag and current regimen Diuretics as needed Replace electrolytes as indicated We have advised increased ambulation. May benefit from physical therapy post discharge TARA BLANCHARD MD FACP FAC CCDS Jan 15, 2021 10:47
--- NOTE | 2021-01-15 11:12 | Physical Therapy Daily Note ---
PT Daily Note-Current Subjective Patient up in recliner with c/o "tailbone" pain. Unrated Mental Status Patient Orientation: Person, Time, Situation Attachments: Oxygen (5L HF NC), Daniel Catheter Transfers SCALE: Activities may be completed with or without assistive devices. 4-Uryvdqbvki-holhyjq completes the activity by him/herself with no assistance from a helper. 5-Set-up or Clean-up Assistance-helper sets up or cleans up; patient completes activity. [place] assists only prior to or following the activity. 4-Supervision or Touching Assistance-helper provides verbal cues and/or touching/steadying and/or contact guard assistance as patient completes activity. Assistance may be provided throughout the activity or intermittently. 3-Partial/Moderate Assistance-helper does LESS THAN HALF the effort. [place] lifts, holds or supports trunk or limbs, but provides less than half the effort. 2-Substantial/Maximal Assistance-helper does MORE THAN HALF the effort. [place] lifts or holds trunk or limbs and provides more than half the effort. 7-Gsyyuigme-qedxmt does ALL the effort. Patient does none of the effort to complete the activity. Or, the assistance of 2 or more helpers is required for the patient to complete the activity. If activity was not attempted, code reason: 7-Patient Refused. 9-Not Applicable-not attempted and the patient did not perform the activity before the current illness, exacerbation or injury. 10-Not Attempted due to Environmental Limitations-(lack of equipment, weather restraints, etc.). 88-Not Attempted due to Medical Conditions or Safety Concerns. Sit to Stand (QC): 4 (SBA) Gait Training Does the Patient Walk?: Yes Distance: 175' Walk 10 feet (QC): 4 (SBA) Walk 50 ft with 2 Turns(QC): 4 (SBA) Walk 150 ft (QC): 4 (SBA) Gait Assistive Device: FWW VC's for body placement in FWW/patient states he wants his 4WW from home Assessment Patient remains up in recliner with needs met. SAO2 remains >90% with activity on 5L NC HF. PT Clerk Funeral Detail Goals Clerk Funeral Detail Goals PT Clerk Funeral Detail Goals Time Frame: Jan 26, 2021 Roll Left & Right (QC): 4 Sit to Lying (QC): 4 Lying-Sitting on Side/Bed(QC): 4 Sit to Stand (QC): 4 Chair/Exd-uz-Ggmld Xfer(QC): 4 Walk 10 feet (QC): 4 Walk 50ft with 2 Turns (QC): 4 PT Plan Treatment/Plan Treatment Plan: Continue Plan of Care Treatment Plan: Bed Mobility, Education, Functional Activity Dash, Functional Strength, Gait, Safety, Therapeutic Exercise, Transfers Treatment Duration: Jan 26, 2021 Frequency: 6 times per week Estimated Hrs Per Day: .25 hour per day Patient and/or Family Agrees t: Yes Time/GCodes Time In: 1030 Time Out: 1041 Total Billed Treatment Time: 11 Total Billed Treatment 1 visit GT 11 min SAMMY ZAVALA PT Jan 15, 2021 11:12
[2021-01-15 11:49] VITALS: BP 135/74
--- NOTE | 2021-01-15 12:05 | Occupational Ther Daily Note ---
OT Current Status-Daily Note Subjective Pt alert, transferring to EOB with assist from nursing when OT entered. Pt agreed to therapy.No c/o pain reported. ADL-Treatment Pt transferred from recliner to EOB with assist from nursing. While at EOB, pt agreed to complete oral hygiene. After set of materials, pt completed oral hygiene while at EOB. Nursing staff entered room. After session, pt sitting at EOB with nurse in room and all needs met. Therapy Code Descriptions/Definitions Functional Dixon Measure: 0=Not Assessed/NA 4=Minimal Assistance 1=Total Assistance 5=Supervision or Setup 2=Maximal Assistance 6=Modified [place] 3=Moderate Assistance 7=Complete IndependenceSCALE: Activities may be completed with or without assistive devices. 2-Fsjlslpbhw-ealhycz completes the activity by him/herself with no assistance from a helper. 5-Set-up or Clean-up Assistance-helper sets up or cleans up; patient completes activity. [place] assists only prior to or following the activity. 4-Supervision or Touching Assistance-helper provides verbal cues and/or touching/steadying and/or contact guard assistance as patient completes activity. Assistance may be provided throughout the activity or intermittently. 3-Partial/Moderate Assistance-helper does LESS THAN HALF the effort. [place] lifts, holds or supports trunk or limbs, but provides less than half the effort. 2-Substantial/Maximal Assistance-helper does MORE THAN HALF the effort. [place] lifts or holds trunk or limbs and provides more than half the effort. 0-Ijyxftcwf-ydbuyf does ALL the effort. Patient does none of the effort to complete the activity. Or, the assistance of 2 or more helpers is required for the patient to complete the activity. If activity was not attempted, code reason: 7-Patient Refused. 9-Not Applicable-not attempted and the patient did not perform the activity before the current illness, exacerbation or injury. 10-Not Attempted due to Environmental Limitations-(lack of equipment, weather restraints, etc.). 88-Not Attempted due to Medical Conditions or Safety Concerns. Education OT Patient Education: Modified ADL techniques, Progress toward Goal/Update tx plan Teaching Recipient: Patient Teaching Methods: Demonstration, Discussion Response to Teaching: Verbalize Understanding, Return Demonstration OT Public Safety Teacher Goals Public Safety Teacher Goals Time Frame: Jan 25, 2021 Eating (QC): 6 Oral Hygiene (QC): 6 Toileting Hygiene (QC): 4 Shower/Bathe Self (QC): 3 Upper Body Dressing (QC): 5 Lower Body Dressing (QC): 4 On/Off Footwear (QC): 4 Additional Goals: 1-Demonstrate ADL Tasks, 2-Verbalize Understanding, 3- ImproveStrength/Dash 1=Demonstrate adherence to instructed precautions during ADL tasks. 2=Patient will verbalize/demonstrate understanding of assistive devices/modifications for ADL. 3=Patient will improve strength/tolerance for activity to enable patient to perform ADL's. OT Education/Plan Problem List/Assessment Assessment: Decreased Activ Tolerance, Decreased UE Strength, Impaired I ADL's, Impaired Self-Care Skills Discharge Recommendations Plan/Recommendations: Continue POC Treatment Plan/Plan of Care Patient would benefit from OT for education, treatment and training to promote independence in ADL's, mobility, safety and/or upper extremity function for ADL's. Plan of Care: ADL Retraining, Functional Mobility, UE Funct Exercise/Act Treatment Duration: Jan 25, 2021 Frequency: 5 times per week Estimated Hrs Per Day: .25 hour per day Rehab Potential: Fair Time/GCodes Start Time: 11:35 Stop Time: 11:47 Total Time Billed (hr/min): 12 Billed Treatment Time 1 visit- ADL 1 ASHELY HOLCOMB Jan 15, 2021 12:05
--- NOTE | 2021-01-15 12:22 | Progress Note - Hospitalist ---
VINICIUS CAMPOS 01/15/21 1222: Subjective HPI/CC On Admission Date Seen by Provider: Jan 15, 2021 Time Seen by Provider: 07:23 CC: SOB with elevated D-Dimer Subjective/Events-last exam Mr. Sierra reports feeling the same today as yesterday with a slight improvement to his breathing. His oxygen was decreased from 25 liters yesterday to 15 liters today and he says that has been a big improvement for him. He is maintaining his saturation. He reports a sore back and buttock alongside neck and shoulder pain. After receiving consent, I treated his neck and shoulder pain with OMT to the patient's satisfaction. He is still waiting on his walker from home to be able to move around more. Review of Systems General: No Chills; Fatigue HEENT: Visual Changes ([place]) Pulmonary: No Dyspnea, No Cough Cardiovascular: No: Chest Pain, Palpitations Gastrointestinal: Constipation; No: Nausea, Vomiting, Abdominal Pain, Diarrhea Musculoskeletal: neck pain, shoulder pain, back pain Focused Exam Capillary Refill: Less Than 3 Seconds Peripheral Pulses: 2+ Radial Pulses (R), 2+ Radial Pulses (L) Objective Exam Vital Signs Vital Signs Date Time Temp Pulse Resp B/P (MAP) Pulse Ox O2 Delivery O2 Flow Rate FiO2 01/15/21 12:15 69 01/15/21 11:49 36.9 20 135/74 (94) 96 High Flow N/C 5.00 01/15/21 07:35 45 Capillary Refill : Less Than 3 Seconds General Appearance: No Apparent Distress, Obese HEENT: PERRL/EOMI, Moist Mucous Membranes; No Pale Conjunctivae (L), No Pale Conjunctivae (R) Neck: Normal Inspection; No Lymphadenopathy (L), No Lymphadenopathy (R); Tender Lateral Respiratory: Chest Non Tender, Lungs Clear, Normal Breath Sounds, No Accessory Muscle Use, No Respiratory Distress Cardiovascular: Regular Rate, Rhythm, Normal Peripheral Pulses Gastrointestinal: Normal Bowel Sounds, Non Tender, Soft Extremity: Normal Capillary Refill, Normal Inspection, Swelling (LE Edema) Neurologic/Psychiatric: Alert, Oriented x3, No Motor/Sensory Deficits, Normal Mood/Affect, gate guard II-XII Norm as Tested Skin: Normal Color, Warm/Dry Lymphatic: No Adenopathy (Head and neck) Results/Procedures Lab Laboratory Tests 01/15/21 05:45 Patient resulted labs reviewed. Imaging: Reviewed Imaging Report Assessment/Plan Assessment and Plan Assess & Plan/Chief Complaint Assessment SOB - Most likely d/t pulmonary emboli Acute on chronic respiratory failure - Requiring Vapotherm H/o CHF Morbid obesity DVT Weakness and deconditioning Obstructive sleep apnea Plan Continue PT and OT as tolerated Continue breathing treatments as needed Continue ABIMBOLA Carcamo DO 01/16/21 0607: Subjective Subjective/Events-last exam Pt doing alot better Still very sedentary He is down from 25 liters to 6 liters of nasal cannula Refused ABGs CXR was negative Edema was 2+ Social work needs to proceed on with residential placement Review of Systems General: Fatigue Pulmonary: Dyspnea Objective Exam General Appearance: No Apparent Distress, WD/WN, Chronically ill, Obese Respiratory: No Accessory Muscle Use, No Respiratory Distress, Decreased Breath Sounds Cardiovascular: Regular Rate, Rhythm Neurologic/Psychiatric: Alert, Oriented x3, No Motor/Sensory Deficits, Normal Mood/Affect Assessment/Plan Assessment and Plan Assess & Plan/Chief Complaint Supportive care Needs residential Supervisory-Addendum Brief Verification & Attestation Participated in pt care: history, MDM, physical Personally performed: exam, history, MDM, supervision of care Care discussed with: Medical Student Procedures: n/a Results interpretation: Verified all documentation Verification and Attestation of Medical Student E/M Service A medical student performed and documented this service in my presence. I rev iewed and verified all information documented by the medical student and made modifications to such information, when appropriate. I personally performed the physical exam and medical decision making. Abimbola Taveras Jan 16, 2021,06:06 VINICIUS CAMPOS Jan 15, 2021 12:22 ABIMBOLA TAVERAS DO Jan 16, 2021 06:07
[2021-01-15 16:38] VITALS: BP 150/69
[2021-01-15 19:40] VITALS: BP 133/84
[2021-01-15] MEDS: clonazePAM 0.5 MG (KlonoPIN) TAB PO SCH (21:54)
[2021-01-15] MEDS: polyethylene glycoL POWDER 17 GM (MIRALAX) PACK PO SCH (21:54)
[2021-01-15] MEDS: PANTOPRAZOLE 40 MG (PROTONIX) TAB PO SCH (21:55)
[2021-01-15] MEDS: traZODone 150 MG (DESYREL) TABLET PO SCH (21:56)
[2021-01-15 22:30] LABS: ABG BASE EXCESS 3.7 MMOL/L (-2.5-2.5); ABG OXYGEN SATURATION 91 % (94-100); ABG PCO2 54 MMHG (35-45); ABG PH 7.35 (7.37-7.43); ABG PO2 63 MMHG (79-93); ABG TCO2 30.5 MMOL/L (21.0-31.0)
[2021-01-15 22:33] LABS: ALLENS TEST YES-POS; INSPIRED O2 45%; PATIENT TEMP NOT INDICATED; VENTILATOR NO
[2021-01-16] VITALS: BP 171/81
[2021-01-16] MEDS: RT-ALBUTEROL/IPRATROPIUM 3 ML (DUONEB) VIAL INH SCH ×4 (02:54→20:58)
[2021-01-16 04:00] VITALS: BP 121/58
[2021-01-16 06:14] LABS: BASOPHILS % (AUTO) 1 % (0-10); EOSINOPHILS # (AUTO) 0.2 10^3/uL (0.0-0.3); EOSINOPHILS % (AUTO) 3 % (0-10); HEMATOCRIT 38 % (40-54); HEMOGLOBIN 12.6 g/dL (13.3-17.7); LYMPHOCYTES # (AUTO) 1.1 10^3/uL (1.0-4.0); LYMPHOCYTES % (AUTO) 19 % (12-44); MEAN CORPUSCULAR HEMOGLOBIN 34 pg (25-34); MEAN CORPUSCULAR HGB CONC 34 g/dL (32-36); MEAN CORPUSCULAR VOLUME 100 fL (80-99); MEAN PLATELET VOLUME 10.7 fL (9.0-12.2); MONOCYTES # (AUTO) 0.5 10^3/uL (0.0-1.0); MONOCYTES % (AUTO) 8 % (0-12); NEUTROPHILS # (AUTO) 4.1 10^3/uL (1.8-7.8); NEUTROPHILS % (AUTO) 69 % (42-75); PLATELET COUNT 252 10^3/uL (130-400); WHITE BLOOD COUNT 5.9 10^3/uL (4.3-11.0)
[2021-01-16] MEDS: CYANOCOBALAMIN 1,000 MCG (VITAMIN B-12) TABLET PO SCH (06:14)
[2021-01-16] MEDS: VENlafaxine XR 75 MG (EFFEXOR XR) CAP PO SCH (06:14)
[2021-01-16] MEDS: CATHETER FLUSH 10 ML SYR IV SCH ×3 (06:15→21:26)
[2021-01-16 06:24] LABS: POTASSIUM 4.3 MMOL/L (3.6-5.0)
[2021-01-16 06:26] LABS: TOTAL PROTEIN 6.1 GM/DL (6.4-8.2)
[2021-01-16 06:28] LABS: BILIRUBIN,TOTAL 0.5 MG/DL (0.1-1.0)
[2021-01-16 06:30] LABS: CREATININE SERUM 1.03 MG/DL (0.60-1.30)
[2021-01-16 08:00] VITALS: BP 178/89
[2021-01-16] MEDS: meTOprolol TARTRATE 50 MG (LOPRESSOR) TAB PO SCH ×2 (08:34→21:25)
[2021-01-16] MEDS: GABAPENTIN 300 MG (NEURONTIN) CAP PO SCH ×3 (08:34→21:24)
[2021-01-16] MEDS: MIRABEGRON 25 MG TAB (MYRBETRIQ) PO SCH (08:34)
[2021-01-16] MEDS: VITAMIN D3 25 MCG (1,000 UNITS) TABLET PO SCH (08:34)
[2021-01-16] MEDS: ALLOPURINOL 100 MG (ZYLOPRIM) TAB PO SCH (08:34)
[2021-01-16] MEDS: APIXABAN 5 MG (ELIQUIS) TABLET PO SCH ×2 (08:34→21:25)
[2021-01-16] MEDS: MICONAZOLE 2% POWDER (DESENEX AF) 90 GM TOP SCH ×2 (08:35→21:25)
--- NOTE | 2021-01-16 09:17 | Pulmonary Progress Note ---
Subjective Date Seen by a Provider: Jan 16, 2021 Time Seen by a Provider: 08:40 Subjective/Events-last exam This virtual visit was conducted using real time audio/video. Thank you for asking us to see this patient for respiratory insufficiency due to PE with underlying LAILA and Pulm Htn. Recent events: None overnight, awaiting placement. PE: Conversational. VSS. O2 sat 92% on 4 LPM HEENT: No obvious masses, adenopathy or JVD. Chest: clear to auscultation. Diminished. CV: RRR S1 S2 No murmur or added sounds. Abd: Non-tender. Bowel sounds Y. : Unremarkable. Daniel N. VULCAN CREWMEMBER/psychiatric: Grossly intact. No obvious focal findings. Extremities: 1+ edema. Capillary refill < 3 seconds. Skin: unremarkable. Results: Decreased Hb 12.6, Alb 3.0. B.35/54 63 on 45%. CXR: clear. Available chart/ vitals / labs / images reviewed. Video assessment done using teleICU camera, rest of exam as per RN. A/P: Respiratory insufficiency: Continue present management with O2 Duonebs Eliquis Monitor for increasing oxygenation needs and/or need for ICU. Discussed with RN Cesilia. Asked RN to reach out to eICU if any questions or concerns later. Time spent with patient/coordination of care with other health professionals (mins): 20 Sepsis Event Evaluation Height, Weight, BMI Height: 5'10.00" Weight: 358lbs. 6.0oz. 162.989299hr; 53.20 BMI Method:Stated Exam Exam Patient acknowledged, consented, and participated in this virtual visit which was conducted using real time audio/video Vital Signs Date Time Temp Pulse Resp B/P (MAP) Pulse Ox O2 Delivery O2 Flow Rate FiO2 01/16/21 08:00 36.5 84 22 178/89 (118) 90 High Flow N/C 4.00 01/16/21 04:00 36.8 74 20 121/58 (79) 92 High Flow N/C 4.00 01/16/21 02:55 92 High Flow N/C 4.00 01/16/21 00:00 36.2 84 18 171/81 (111) 91 High Flow N/C 4.00 01/15/21 22:28 96 High Flow N/C 4.00 01/15/21 20:30 High Flow N/C 4.00 01/15/21 19:40 37.0 83 20 133/84 (100) 96 High Flow N/C 4.00 01/15/21 19:28 86 01/15/21 16:38 36.6 85 22 150/69 (96) 96 High Flow N/C 4.00 01/15/21 14:53 95 High Flow N/C 4.00 01/15/21 12:15 69 01/15/21 11:49 36.9 75 20 135/74 (94) 96 High Flow N/C 5.00 I & O 01/16/21 07:00 Intake Total 1862 ml Output Total 3750 ml Balance -1888 ml Height & Weight Height: 5'10.00" Weight: 358lbs. 6.0oz. 162.669519lb; 53.20 BMI Method:Stated General Appearance: No Apparent Distress, WD/WN, Chronically ill, Mild Distress (see free text), Obese HEENT: PERRL/EOMI, Moist Mucous Membranes; No Pale Conjunctivae (L), No Pale Conjunctivae (R) Neck: Normal Inspection; No Lymphadenopathy (L), No Lymphadenopathy (R); Tender Lateral Respiratory: No Accessory Muscle Use, No Respiratory Distress, Decreased Breath Sounds Cardiovascular: Regular Rate, Rhythm Capillary Refill: Less Than 3 Seconds Peripheral Pulses: 1+ Dorsalis Pedis (R) (see free text), 1+ Left Dors-Pedis (L); 2+ Radial Pulses (R), 2+ Radial Pulses (L) Extremity: Normal Capillary Refill, Normal Inspection, Swelling (LE Edema) Neurologic/Psychiatric: Alert, Oriented x3, No Motor/Sensory Deficits, Normal Mood/Affect Skin: Normal Color, Warm/Dry Lymphatic: No Adenopathy (Head and neck) Results Lab Laboratory Tests 01/15/21 05:45 01/16/21 05:53 Assessment/Plan Assessment/Plan See free text Critical Care: Critically Ill Patient FAVIOLA ANDREWS MD Jan 16, 2021 09:17
[2021-01-16] MEDS: oxyCODONE/APAP 10/325MG (PERCOCET 10) TABLET PO PRN (09:22)
--- NOTE | 2021-01-16 10:00 | Physical Therapy Daily Note ---
PT Daily Note-Current Subjective Patient in bed pre tx, agrees reluctantly to PT, has no complaints of pain at rest. Appearance Patient on commode post tx with nurse call, nurse notified. Mental Status Patient Orientation: Person, Place, Situation Attachments: Oxygen, Daniel Catheter Transfers SCALE: Activities may be completed with or without assistive devices. 1-Ostixnamkt-arzyegk completes the activity by him/herself with no assistance from a helper. 5-Set-up or Clean-up Assistance-helper sets up or cleans up; patient completes activity. [place] assists only prior to or following the activity. 4-Supervision or Touching Assistance-helper provides verbal cues and/or touching/steadying and/or contact guard assistance as patient completes activity. Assistance may be provided throughout the activity or intermittently. 3-Partial/Moderate Assistance-helper does LESS THAN HALF the effort. [place] lifts, holds or supports trunk or limbs, but provides less than half the effort. 2-Substantial/Maximal Assistance-helper does MORE THAN HALF the effort. [place] lifts or holds trunk or limbs and provides more than half the effort. 9-Lrllvcnbn-xzydvi does ALL the effort. Patient does none of the effort to complete the activity. Or, the assistance of 2 or more helpers is required for the patient to complete the activity. If activity was not attempted, code reason: 7-Patient Refused. 9-Not Applicable-not attempted and the patient did not perform the activity before the current illness, exacerbation or injury. 10-Not Attempted due to Environmental Limitations-(lack of equipment, weather restraints, etc.). 88-Not Attempted due to Medical Conditions or Safety Concerns. Roll Left & Right (QC): 4 Lying to Sitting/Side of Bed(Q: 4 Sit to Stand (QC): 4 Chair/Ode-fd-Andhu Xfer(QC): 4 Patient has a lot of difficulty with supine to sit but was able to do it without assist. Gait Training Distance: 30'x2 Walk 10 feet (QC): 4 Gait Assistive Device: Walker 4 Wheeled Patient ambulated 30' and had to sit and rest on his 4 wheeled walker, ambulation is slow, slumped posture. Treatments bed mobility and transfers, ambulation Assessment Current Status: Fair Progress slowly improving functional mobility PT Fitter Helper Goals Fitter Helper Goals PT Fitter Helper Goals Time Frame: Jan 26, 2021 Roll Left & Right (QC): 4 Sit to Lying (QC): 4 Lying-Sitting on Side/Bed(QC): 4 Sit to Stand (QC): 4 Chair/Svb-si-Oyuez Xfer(QC): 4 Walk 10 feet (QC): 4 Walk 50ft with 2 Turns (QC): 4 PT Plan Problem List Problem List: Activity Tolerance, Functional Strength, Safety, Balance, Gait, Transfer, Bed Mobility, ROM Treatment/Plan Treatment Plan: Continue Plan of Care Treatment Plan: Bed Mobility, Education, Functional Activity Dash, Functional Strength, Gait, Safety, Therapeutic Exercise, Transfers Treatment Duration: Jan 26, 2021 Frequency: 6 times per week Estimated Hrs Per Day: .25 hour per day Patient and/or Family Agrees t: Yes Safety Risks/Education Patient Education: Gait Training, Transfer Techniques, Correct Positioning, Safety Issues Teaching Recipient: Patient Teaching Methods: Demonstration, Discussion Response to Teaching: Reinforcement Needed Time/GCodes Time In: 0930 Time Out: 0947 Total Billed Treatment Time: 17 Total Billed Treatment 1 visit GT 17' ASTRID WATSON PT Jan 16, 2021 10:00
--- NOTE | 2021-01-16 11:05 | Progress Note - Hospitalist ---
VINICIUS CAMPOS 01/16/21 1105: Subjective HPI/CC On Admission Date Seen by Provider: Jan 16, 2021 Time Seen by Provider: 07:45 CC: SOB with elevated D-Dimer Subjective/Events-last exam Mr. Sierra still has back pain this morning from resting in bed. Otherwise he reports no new complaints or pains. He has been switched from Vapotherm to NC and is maintaining his oxygen saturation in the low-mid 90s. He says his breathing has been okay with this switch. He is amenable to having his catheter removed today. Review of Systems General: No Chills, No Fatigue HEENT: Visual Changes ([place]) Pulmonary: No Dyspnea, No Cough Cardiovascular: No: Chest Pain, Palpitations Gastrointestinal: No: Nausea, Vomiting, Abdominal Pain Musculoskeletal: back pain Neurological: No: Weakness, Confusion Focused Exam Capillary Refill: Less Than 3 Seconds Peripheral Pulses: 2+ Radial Pulses (R), 2+ Radial Pulses (L) Objective Exam Vital Signs Vital Signs Date Time Temp Pulse Resp B/P (MAP) Pulse Ox O2 Delivery O2 Flow Rate FiO2 01/16/21 10:02 94 High Flow N/C 4.00 01/16/21 08:00 36.5 84 22 178/89 (118) 01/15/21 07:35 45 Capillary Refill : Less Than 3 Seconds General Appearance: No Apparent Distress, Chronically ill, Obese HEENT: PERRL/EOMI, Moist Mucous Membranes; No Scleral Icterus (L), No Scleral Icterus (R) Neck: Normal Inspection, Non Tender; No Lymphadenopathy (L), No Lymphadenopathy (R) Respiratory: Chest Non Tender, Lungs Clear, Normal Breath Sounds, No Accessory Muscle Use, No Respiratory Distress Cardiovascular: Regular Rate, Rhythm, No Murmur, Normal Peripheral Pulses Gastrointestinal: Normal Bowel Sounds, Non Tender, Soft Extremity: Normal Capillary Refill, Normal Inspection, Pedal Edema, Swelling (B/L LE 2+ pitting edema) Neurologic/Psychiatric: Alert, Oriented x3, Normal Mood/Affect, mold puller II-XII Norm as Tested, Other (Right hand tremor) Skin: Normal Color, Warm/Dry Lymphatic: No Adenopathy (Head and neck) Results/Procedures Lab Laboratory Tests 01/16/21 05:53 Patient resulted labs reviewed. Imaging: Reviewed Imaging Report Assessment/Plan Assessment and Plan Assess & Plan/Chief Complaint Assessment SOB - Most likely d/t pulmonary emboli Acute on chronic respiratory failure - Switched from Vapotherm to NC. Maintaining saturations H/o CHF Morbid obesity DVT Weakness and deconditioning Obstructive sleep apnea Plan Continue PT and OT as tolerated Consider placement with SNF Continue breathing treatments as needed Continue ABIMBOLA Carcamo DO 01/17/21 0514: Subjective Subjective/Events-last exam Pt doing a lot better More conversant Four liters of oxygen running at 92% Needs snf placement Review of Systems General: Fatigue Pulmonary: Dyspnea Objective Exam General Appearance: No Apparent Distress, WD/WN, Chronically ill, Obese Respiratory: Lungs Clear, Normal Breath Sounds Cardiovascular: Regular Rate, Rhythm Neurologic/Psychiatric: Alert, Oriented x3, Depressed Affect Assessment/Plan Assessment and Plan Assess & Plan/Chief Complaint Supportive care Await snf placement Supervisory-Addendum Brief Verification & Attestation Participated in pt care: history, MDM, physical Personally performed: exam, history, MDM, supervision of care Care discussed with: Medical Student Procedures: n/a Results interpretation: Verified all documentation Verification and Attestation of Medical Student E/M Service A medical student performed and documented this service in my presence. I reviewed and verified all information documented by the medical student and made modifications to such information, when appropriate. I personally performed the physical exam and medical decision making. Abimbola Taveras, Jan 17, 2021,05:13 VINICIUS CAMPOS Jan 16, 2021 11:05 ABIMBOLA TAVERAS DO Jan 17, 2021 05:14
[2021-01-16 12:00] VITALS: BP 123/60
--- NOTE | 2021-01-16 13:13 | Progress Note - Cardiology ---
Cardiology SOAP Progress Note Subjective: No cp or palp or syncope Shortness of breath unchanged Gen malaise No n/v/d Objective: I&O/Vital Signs 01/16/21 01/16/21 01/16/21 01/16/21 02:55 04:00 08:00 09:00 Temp 36.8 36.5 Pulse 74 84 Resp 20 22 B/P (MAP) 121/58 (79) 178/89 (118) Pulse Ox 92 92 90 O2 Delivery High Flow N/C High Flow N/C High Flow N/C High Flow N/C O2 Flow Rate 4.00 4.00 4.00 4.00 01/16/21 10:02 Pulse Ox 94 O2 Delivery High Flow N/C O2 Flow Rate 4.00 01/16/21 00:00 Intake Total 1522 ml Output Total 2450 ml Balance -928 ml Weight (Pounds): 358 Weight (Ounces): 6.0 Weight (Calculated Kilograms): 162.662402 Constitutional: AAO x 3, well-nourished, other (lethargic) Respiratory: chest expansion is symmetric, chest is bilaterally symmetric, other (good air entry) Cardiovascular: regular rate-rhythm, S1 and S2 Gastrointestional: soft, round Extremities: other (mild bilat LE swelling) Neurologic/Psychiatric: grossly intact Skin: No rash on exposed areas, No ulcerations on exposed areas Results/Procedures: Labs Laboratory Tests 01/15/21 22:29: Blood Gas Puncture Site LEFT RADIAL, Blood Gas Patient Temperature NOT INDICATED, Arterial Blood pH 7.35L, Arterial Blood Partial Pressure CO2 54H, Arterial Blood Partial Pressure O2 63L, Arterial Blood HCO3 29H, Arterial Blood Total CO2 30.5, Arterial Blood Oxygen Saturation 91L, Arterial Blood Base Excess 3.7H, Zain Test YES-POS, Blood Gas Ventilator Setting NO, Blood Gas Inspired Oxygen 45% 01/16/21 05:53: White Blood Count 5.9, Red Blood Count 3.76L, Hemoglobin 12.6L, Hematocrit 38L, Mean Corpuscular Volume 100H, Mean Corpuscular Hemoglobin 34, Mean Corpuscular Hemoglobin Concent 34, Red Cell Distribution Width 12.8, Platelet Count 252, Mean Platelet Volume 10.7, Immature Granulocyte % (Auto) 1, Neutrophils (%) (Auto) 69, Lymphocytes (%) (Auto) 19, Monocytes (%) (Auto) 8, Eosinophils (%) (Auto) 3, Basophils (%) (Auto) 1, Neutrophils # (Auto) 4.1, Lymphocytes # (Auto) 1.1, Monocytes # (Auto) 0.5, Eosinophils # (Auto) 0.2, Basophils # (Auto) 0.0, Immature Granulocyte # (Auto) 0.0, Sodium Level 142, Potassium Level 4.3, Chloride Level 105, Carbon Dioxide Level 28, Anion Gap 9, Blood Urea Nitrogen 15, Creatinine 1.03, Estimat Glomerular Filtration Rate 71, BUN/Creatinine Ratio 15, Glucose Level 102, Calcium Level 9.0, Corrected Calcium 9.8, Total Bilirubin 0.5, Aspartate Amino Transf (AST/SGOT) 22, Alanine Aminotransferase (ALT/SGPT) 14, Alkaline Phosphatase 87, Total Protein 6.1L, Albumin 3.0L Microbiology 01/05/21 MRSA Screen - Final, Complete MRSA not isolated 01/03/21 Blood Culture - Final, Complete No growth Laboratory Tests 01/15/21 05:45 01/16/21 05:53 A/P: Assessment: PE (large wedge-shaped defects bilaterally, consistent with high probability for pulmonary embolism per VQ lung scan of 01-04-21) - Echo on 01/04/21: LVEF 55-65%, PASP 30-35 mmHg Acute on chronic renal insufficiency: resolved Mildly elevated troponin at presentation - probable type 2 [place] secondary to transient hypoxia DVT - Partially occlusive deep vein thrombus within the mid superficial femoral artery extending into the left popliteal artery and calf vessels of the left lower extremity. No sonographic evidence of deep venous thrombosis in the right lower extremity. LAILA - CPAP tx HTN HLD, by history Morbid obesity - BMI approx 54 Chronic joint pain - h/o shoulder and bilat knee pain H/o anxiety/depression Plan: Continue anticoag and current regimen Diuretics as needed Replace electrolytes as indicated We have advised increased ambulation. May benefit from physical therapy post discharge TARA BLANCHARD MD [facility] CCDS Jan 16, 2021 13:13
[2021-01-16 16:08] VITALS: BP 122/63
--- NOTE | 2021-01-16 16:13 | Occupational Ther Daily Note ---
OT Current Status-Daily Note Subjective Pt denies pain, agreeable to treatment Appearance Left supine in bed, INSPECTOR WREATH in room. Mental Status/Objective Attachments: Daniel Catheter, IV ADL-Treatment Therapy Code Descriptions/Definitions Functional [place] Measure: 0=Not Assessed/NA 4=Minimal Assistance 1=Total Assistance 5=Supervision or Setup 2=Maximal Assistance 6=Modified [place] 3=Moderate Assistance 7=Complete IndependenceSCALE: Activities may be completed with or without assistive devices. 4-Dpbzohezff-dxoffme completes the activity by him/herself with no assistance from a helper. 5-Set-up or Clean-up Assistance-helper sets up or cleans up; patient completes activity. [place] assists only prior to or following the activity. 4-Supervision or Touching Assistance-helper provides verbal cues and/or to uching/steadying and/or contact guard assistance as patient completes activity. Assistance may be provided throughout the activity or intermittently. 3-Partial/Moderate Assistance-helper does LESS THAN HALF the effort. [place] lifts, holds or supports trunk or limbs, but provides less than half the effort. 2-Substantial/Maximal Assistance-helper does MORE THAN HALF the effort. [place] lifts or holds trunk or limbs and provides more than half the effort. 0-Tvnhnlwnz-wmpesa does ALL the effort. Patient does none of the effort to complete the activity. Or, the assistance of 2 or more helpers is required for the patient to complete the activity. If activity was not attempted, code reason: 7-Patient Refused. 9-Not Applicable-not attempted and the patient did not perform the activity before the current illness, exacerbation or injury. 10-Not Attempted due to Environmental Limitations-(lack of equipment, weather restraints, etc.). 88-Not Attempted due to Medical Conditions or Safety Concerns. Other Treatment Pt laying cockeyed in bed at OT arrival, finishing breathing treatment. Pt able to assist by pulling with UE's to HOB. OT issued and instructed pt on exercises with red theraband. R shoulder exercises performed within available range; ~150 degrees. All other movements performed to end range. 10x1 in all planes. Good tolerance throughout. Min cues for correct technique. Education OT Patient Education: Correct positioning, Exercise program, Progress toward Goal/Update tx plan, Transfer techniques Teaching Recipient: Patient Teaching Methods: Discussion Response to Teaching: Return Demonstration, Reinforcement Needed OT Fpc Goals [employer] Ticketer Goals Time Frame: Jan 25, 2021 Eating (QC): 6 Oral Hygiene (QC): 6 Toileting Hygiene (QC): 4 Shower/Bathe Self (QC): 3 Upper Body Dressing (QC): 5 Lower Body Dressing (QC): 4 On/Off Footwear (QC): 4 Additional Goals: 1-Demonstrate ADL Tasks, 2-Verbalize Understanding, 3-ImproveStrength/Dash 1=Demonstrate adherence to instructed precautions during ADL tasks. 2=Patient will verbalize/demonstrate understanding of assistive devices/modifications for ADL. 3=Patient will improve strength/tolerance for activity to enable patient to perf orm ADL's. OT Education/Plan Problem List/Assessment Assessment: Decreased Activ Tolerance, Decreased UE Strength, Impaired Self- Care Skills, Restricted Funct UE ROM Discharge Recommendations Plan/Recommendations: Continue POC Treatment Plan/Plan of Care Treatment,Training & Education: Yes Patient would benefit from OT for education, treatment and training to promote independence in ADL's, mobility, safety and/or upper extremity function for ADL's. Plan of Care: ADL Retraining, Functional Mobility, UE Funct Exercise/Act Treatment Duration: Jan 25, 2021 Frequency: 5 times per week Estimated Hrs Per Day: .25 hour per day Rehab Potential: Fair Time/GCodes Start Time: 15:54 Stop Time: 16:08 Total Time Billed (hr/min): 14 Billed Treatment Time 1 visit EX Patricia Blanco OT Jan 16, 2021 16:13
[2021-01-16 20:06] VITALS: BP 156/72
[2021-01-16] MEDS: polyethylene glycoL POWDER 17 GM (MIRALAX) PACK PO SCH (21:23)
[2021-01-16] MEDS: traZODone 150 MG (DESYREL) TABLET PO SCH (21:24)
[2021-01-16] MEDS: clonazePAM 0.5 MG (KlonoPIN) TAB PO SCH (21:24)
[2021-01-16] MEDS: PANTOPRAZOLE 40 MG (PROTONIX) TAB PO SCH (21:24)
[2021-01-17 00:27] VITALS: BP 126/59
[2021-01-17] MEDS: oxyCODONE/APAP 10/325MG (PERCOCET 10) TABLET PO PRN ×2 (02:26→20:48)
[2021-01-17] MEDS: RT-ALBUTEROL/IPRATROPIUM 3 ML (DUONEB) VIAL INH SCH ×4 (02:41→21:07)
[2021-01-17 04:15] VITALS: BP 110/65
[2021-01-17 05:32] LABS: BASOPHILS # (AUTO) 0.1 10^3/uL (0.0-0.1); BASOPHILS % (AUTO) 1 % (0-10); EOSINOPHILS # (AUTO) 0.3 10^3/uL (0.0-0.3); EOSINOPHILS % (AUTO) 4 % (0-10); HEMATOCRIT 37 % (40-54); HEMOGLOBIN 12.5 g/dL (13.3-17.7); LYMPHOCYTES # (AUTO) 1.5 10^3/uL (1.0-4.0); LYMPHOCYTES % (AUTO) 23 % (12-44); MEAN CORPUSCULAR HEMOGLOBIN 34 pg (25-34); MEAN CORPUSCULAR HGB CONC 34 g/dL (32-36); MEAN CORPUSCULAR VOLUME 100 fL (80-99); MEAN PLATELET VOLUME 10.2 fL (9.0-12.2); MONOCYTES # (AUTO) 0.6 10^3/uL (0.0-1.0); MONOCYTES % (AUTO) 9 % (0-12); NEUTROPHILS % (AUTO) 63 % (42-75); PLATELET COUNT 248 10^3/uL (130-400); WHITE BLOOD COUNT 6.3 10^3/uL (4.3-11.0)
[2021-01-17 05:53] LABS: POTASSIUM 4.1 MMOL/L (3.6-5.0)
[2021-01-17 05:54] LABS: CALCIUM 8.9 MG/DL (8.5-10.1)
[2021-01-17 05:57] LABS: BILIRUBIN,TOTAL 0.6 MG/DL (0.1-1.0)
[2021-01-17 05:59] LABS: CREATININE SERUM 1.09 MG/DL (0.60-1.30)
[2021-01-17] MEDS: CATHETER FLUSH 10 ML SYR IV SCH ×3 (06:14→20:49)
[2021-01-17] MEDS: CYANOCOBALAMIN 1,000 MCG (VITAMIN B-12) TABLET PO SCH (06:40)
[2021-01-17] MEDS: VENlafaxine XR 75 MG (EFFEXOR XR) CAP PO SCH (06:40)
[2021-01-17 08:00] VITALS: BP 156/75
[2021-01-17] MEDS: VITAMIN D3 25 MCG (1,000 UNITS) TABLET PO SCH (08:43)
[2021-01-17] MEDS: MIRABEGRON 25 MG TAB (MYRBETRIQ) PO SCH (08:43)
[2021-01-17] MEDS: ALLOPURINOL 100 MG (ZYLOPRIM) TAB PO SCH (08:44)
[2021-01-17] MEDS: APIXABAN 5 MG (ELIQUIS) TABLET PO SCH ×2 (08:44→20:48)
[2021-01-17] MEDS: meTOprolol TARTRATE 50 MG (LOPRESSOR) TAB PO SCH ×2 (08:44→20:48)
[2021-01-17] MEDS: GABAPENTIN 300 MG (NEURONTIN) CAP PO SCH ×3 (08:44→20:48)
[2021-01-17] MEDS: MICONAZOLE 2% POWDER (DESENEX AF) 90 GM TOP SCH ×2 (08:45→20:49)
--- NOTE | 2021-01-17 09:40 | Pulmonary Progress Note ---
Subjective Date Seen by a Provider: Jan 17, 2021 Time Seen by a Provider: 10:07 Subjective/Events-last exam Pt with no major events overnight. Notes didn't sleep well. From breathing standpoint he is stable. Currently on Eliquis for PE. Plan to go to rehab in next few days. Per nurse (JONES Campbell) Exam relatively unremarkable). Will cont present management. This virtual visit was conducted using real time audio/video. Sepsis Event Evaluation Height, Weight, BMI Height: 5'." Weight: 358lbs. 6.0oz. 162.756850vw; 53.20 BMI Method:Stated Exam Exam Patient acknowledged, consented, and participated in this virtual visit which was conducted using real time audio/video Vital Signs Date Time Temp Pulse Resp B/P (MAP) Pulse Ox O2 Delivery O2 Flow Rate FiO2 01/17/21 08:00 36.4 78 20 156/75 (102) 90 High Flow N/C 4.00 01/17/21 04:15 37.0 72 22 110/65 (80) 90 High Flow N/C 4.00 01/17/21 02:41 91 High Flow N/C 4.00 01/17/21 00:27 37.0 101 20 126/59 (81) 94 High Flow N/C 4.00 01/16/21 20:59 91 High Flow N/C 4.00 01/16/21 20:25 91 High Flow N/C 4.00 01/16/21 20:06 35.4 75 20 156/72 (100) 98 High Flow N/C 4.00 01/16/21 16:19 68 90 36 01/16/21 16:08 36.4 68 20 122/63 (82) 94 High Flow N/C 4.00 01/16/21 15:50 90 High Flow N/C 4.00 01/16/21 12:00 36.9 75 20 123/60 (81) 95 High Flow N/C 4.00 01/16/21 10:02 94 High Flow N/C 4.00 I & O 01/17/21 07:00 Intake Total 2959 ml Output Total 1755 ml Balance 1204 ml Height & Weight Height: 5'10.00" Weight: 358lbs. 6.0oz. 162.144173wv; 53.20 BMI Method:Stated General Appearance: No Apparent Distress, WD/WN; No Anxious; Chronically ill; No Cachetic, No Mild Distress, No Moderate Distress; Obese; No Severe Distress, No Thin, No Other HEENT: PERRL/EOMI; No TMs Normal, No Normal ENT Inspection, No Pharynx Normal; Moist Mucous Membranes; No Pale Conjunctivae (L), No Pale Conjunctivae (R), No Pharyngeal Erythema, No Photophobia, No Scleral Icterus (L), No Scleral Icterus (R), No TM Abnormal (L), No TM Abnormal (R), No Tonsillar Exudate, No Tonsillar Enlargement, No Other Neck: No Full Range of Motion; Normal Inspection, Non Tender; No Supple, No Carotid Bruit, No JVD, No Limited Range of Motion, No Lymphadenopathy (L), No Lymphadenopathy (R), No Tender Lateral, No Tender Midline, No Thyromegaly, No Other Respiratory: No Chest Non Tender; Lungs Clear, Normal Breath Sounds; No No Accessory Muscle Use, No No Respiratory Distress, No Accessory Muscle Use, No Crackles, No Decreased Breath Sounds, No Expiration, No Inspiration, No Pleural Rub, No Rales, No Respiratory Distress, No Rhonci, No Stridor, No Wheezing, No Other Cardiovascular: Regular Rate, Rhythm; No No Edema, No No Gallop, No No JVD, No No Murmur, No Normal Peripheral Pulses, No Bradycardia, No Diastolic Murmur, No Systolic Murmur, No Extra Beats, No Friction Rub, No Gallop/S3, No Gallop/S4, No Irregularly Irregular, No JVD, No Tachycardia, No Other Capillary Refill: Less Than 3 Seconds Peripheral Pulses: 1+ Dorsalis Pedis (R) (see free text), 1+ Left Dors-Pedis (L); 2+ Radial Pulses (R), 2+ Radial Pulses (L) Gastrointestinal: No normal bowel sounds, No non tender, No soft, No no or ganomegaly, No no pulsatile mass, No abnormal bowel sounds, No distended, No guarding, No rebound, No tenderness, No hernia, No mass, No hepatomegaly, No spleenomegaly, No other Extremity: Normal Capillary Refill, Normal Inspection; No Normal Range of Motion, No Non Tender, No No Calf Tenderness, No No Pedal Edema, No Calf Tenderness, No Inflammation; Pedal Edema; No Pelvis Stable, No Slow Capillary Refill; Swelling (B/L LE 2+ pitting edema); No Other Neurologic/Psychiatric: Alert, Oriented x3; No No Motor/Sensory Deficits, No Normal Mood/Affect, No jackscrew worker II-XII Norm as Tested, No Abnormal Cerebellar Tests, No Abnormal jackscrew worker II-XII, No Abnormal Gait, No Aphasia; Depressed Affect; No Disoriented, No EOM Palsy, No Facial Droop, No Motor Weakness, No Sensory Deficit, No Other Skin: Normal Color, Warm/Dry Lymphatic: No Adenopathy (Head and neck) Results Lab Laboratory Tests 01/16/21 05:53 01/17/21 05:18 Assessment/Plan Assessment/Plan See free text for full plan. YAYO BATES MD Jan 17, 2021 09:40
--- NOTE | 2021-01-17 11:38 | Progress Note - Cardiology ---
Cardiology SOAP Progress Note Subjective: No cp or palp or syncope Shortness of breath as before Gen malaise, improving No n/v/d Chronic, mild to mod, leg swelling Objective: I&O/Vital Signs 01/17/21 01/17/21 01/17/21 01/17/21 00:27 02:41 04:15 08:00 Temp 37.0 37.0 Pulse 101 72 Resp 20 22 B/P (MAP) 126/59 (81) 110/65 (80) Pulse Ox 94 91 90 O2 Delivery High Flow N/C High Flow N/C High Flow N/C High Flow N/C O2 Flow Rate 4.00 4.00 4.00 4.00 01/17/21 01/17/21 08:00 10:44 Temp 36.4 Pulse 78 Resp 20 B/P (MAP) 156/75 (102) Pulse Ox 90 94 O2 Delivery High Flow N/C High Flow N/C O2 Flow Rate 4.00 4.00 01/17/21 00:00 Intake Total 2040 ml Output Total 1330 ml Balance 710 ml Weight (Pounds): 358 Weight (Ounces): 6.0 Weight (Calculated Kilograms): 162.298994 Constitutional: AAO x 3, well-nourished, other (lethargic) Respiratory: chest expansion is symmetric, chest is bilaterally symmetric, other (good air entry) Cardiovascular: regular rate-rhythm, S1 and S2 Gastrointestional: soft, round Extremities: other (mild bilat LE swelling) Neurologic/Psychiatric: grossly intact Skin: No rash on exposed areas, No ulcerations on exposed areas Results/Procedures: Labs Laboratory Tests 01/17/21 05:18: White Blood Count 6.3, Red Blood Count 3.69L, Hemoglobin 12.5L, Hematocrit 37L, Mean Corpuscular Volume 100H, Mean Corpuscular Hemoglobin 34, Mean Corpuscular Hemoglobin Concent 34, Red Cell Distribution Width 12.7, Platelet Count 248, Mean Platelet Volume 10.2, Immature Granulocyte % (Auto) 0, Neutrophils (%) (Auto) 63, Lymphocytes (%) (Auto) 23, Monocytes (%) (Auto) 9, Eosinophils (%) (Auto) 4, Basophils (%) (Auto) 1, Neutrophils # (Auto) 4.0, Lymphocytes # (Auto) 1.5, Monocytes # (Auto) 0.6, Eosinophils # (Auto) 0.3, Basophils # (Auto) 0.1, Immature Granulocyte # (Auto) 0.0, Sodium Level 140, Potassium Level 4.1, Chloride Level 103, Carbon Dioxide Level 27, Anion Gap 10, Blood Urea Nitrogen 14, Creatinine 1.09, Estimat Glomerular Filtration Rate 67, BUN/Creatinine Ratio 13, Glucose Level 108H, Calcium Level 8.9, Corrected Calcium 9.7, Total Bilirubin 0.6, Aspartate Amino Transf (AST/SGOT) 21, Alanine Aminotransferase (ALT/SGPT) 13, Alkaline Phosphatase 85, Total Protein 6.0L, Albumin 3.0L Microbiology 01/05/21 MRSA Screen - Final, Complete MRSA not isolated 01/03/21 Blood Culture - Final, Complete No growth Laboratory Tests 01/16/21 05:53 01/17/21 05:18 A/P: Assessment: PE (large wedge-shaped defects bilaterally, consistent with high probability for pulmonary embolism per VQ lung scan of 01-04-21) - Echo on 01/04/21: LVEF 55-65%, PASP 30-35 mmHg Acute on chronic renal insufficiency: resolved Mildly elevated troponin at presentation - probable type 2 [place] secondary to transient hypoxia DVT - Partially occlusive deep vein thrombus within the mid superficial femoral artery extending into the left popliteal artery and calf vessels of the left lower extremity. No sonographic evidence of deep venous thrombosis in the right lower extremity. LAILA - CPAP tx HTN HLD, by history Morbid obesity - BMI approx 54 Chronic joint pain - h/o shoulder and bilat knee pain H/o anxiety/depression Plan: Continue anticoag and current regimen Diuretics as needed Replace electrolytes as indicated We recommend physical therapy post discharge TARA BLANCHARD MD FACP FAC CCDS Jan 17, 2021 11:38
--- NOTE | 2021-01-17 11:42 | Physical Therapy Daily Note ---
PT Daily Note-Current Subjective Patient agrees to PT. He reports he is feeling better. Continues to c/o coccyx pain. Pain Numeric Pain Scale: 5-Moderate Pain Location: Soft Tissue Location Body Site: Sacrum Pain Description: Pressure Mental Status Patient Orientation: Normal For Age Attachments: Oxygen (4L HF NC) Transfers SCALE: Activities may be completed with or without assistive devices. 7-Xovyobsxma-meznbmr completes the activity by him/herself with no assistance from a helper. 5-Set-up or Clean-up Assistance-helper sets up or cleans up; patient completes activity. [place] assists only prior to or following the activity. 4-Supervision or Touching Assistance-helper provides verbal cues and/or touching/steadying and/or contact guard assistance as patient completes activity. Assistance may be provided throughout the activity or intermittently. 3-Partial/Moderate Assistance-helper does LESS THAN HALF the effort. [place] lifts, holds or supports trunk or limbs, but provides less than half the effort. 2-Substantial/Maximal Assistance-helper does MORE THAN HALF the effort. [place] lifts or holds trunk or limbs and provides more than half the effort. 5-Hckuelhre-nzgkoo does ALL the effort. Patient does none of the effort to complete the activity. Or, the assistance of 2 or more helpers is required for the patient to complete the activity. If activity was not attempted, code reason: 7-Patient Refused. 9-Not Applicable-not attempted and the patient did not perform the activity before the current illness, exacerbation or injury. 10-Not Attempted due to Environmental Limitations-(lack of equipment, weather restraints, etc.). 88-Not Attempted due to Medical Conditions or Safety Concerns. Sit to Stand (QC): 5 Gait Training Does the Patient Walk?: Yes Distance: 150' Walk 10 feet (QC): 4 Walk 50 ft with 2 Turns(QC): 4 Walk 150 ft (QC): 4 Gait Assistive Device: Walker 4 Wheeled extended UE's with 4WW use/functional gait sequence Assessment Patient remains up in recliner with needs met. Patient improving with treatment plan. PT Prison Goals Print Buyer Goals PT Print Buyer Goals Time Frame: Jan 26, 2021 Roll Left & Right (QC): 4 Sit to Lying (QC): 4 Lying-Sitting on Side/Bed(QC): 4 Sit to Stand (QC): 4 Chair/Yqy-yc-Ohnjp Xfer(QC): 4 Walk 10 feet (QC): 4 Walk 50ft with 2 Turns (QC): 4 PT Plan Treatment/Plan Treatment Plan: Continue Plan of Care Treatment Plan: Bed Mobility, Education, Functional Activity Dash, Functional Strength, Gait, Safety, Therapeutic Exercise, Transfers Treatment Duration: Jan 26, 2021 Frequency: 6 times per week Estimated Hrs Per Day: .25 hour per day Patient and/or Family Agrees t: Yes Time/GCodes Time In: 1113 Time Out: 1123 Total Billed Treatment Time: 10 Total Billed Treatment 1 visit FA 10 min SAMMY ZAVALA PT Jan 17, 2021 11:42
[2021-01-17 11:45] VITALS: BP 97/58
--- NOTE | 2021-01-17 12:54 | Progress Note - Hospitalist ---
VINICIUS CAMPOS 01/17/21 1254: Subjective HPI/CC On Admission Date Seen by Provider: Jan 17, 2021 Time Seen by Provider: 08:23 CC: SOB with elevated D-Dimer Subjective/Events-last exam Mr. Sierra is a 70 y/o male with a PMHx of morbid obesity, LAILA, and DVT of the right leg who presented to the ED on 04 January with a CC of worsening SOB and cough. He denied any sick contacts and had recently gotten his COVID vaccinations. He reported his cough as non-productive and worse with exertion. He denied chest pain at that time. He has chronic swelling in his lower extremities but does not take his "water pill." He was not established with a retail salesman but was seen by Dr. Lake during his stay in the hospital. Throughout his hospital stay he was placed on oxygen via NC or Vapotherm to help maintain his oxygen saturation. At the time of his admission a VQ scan revealed a high probability of bilateral pulmonary emboli. Echo showed elevated pulmonary arterial pressure without right heart strain consistent with obesity hypoventilation syndrome. He routinely would have an ABG indicative of resp iratory acidosis with elevated pCO2. Through his stay he has been working with PT and OT and improving. During our encounter today he was able to walk with the assistance of his walker. His main complaint has been back pain from spending a lot of time in bed. He came to the hospital from his home. The plan is to discharge him to [facility]. His care and condition is complicated by several comorbidities. Review of Systems General: No Chills, No Fatigue HEENT: No Head Aches; Visual Changes (Diplopia when not wearing glasses) Pulmonary: No Dyspnea; Cough Cardiovascular: No: Chest Pain, Palpitations Gastrointestinal: No: Nausea, Vomiting, Abdominal Pain Musculoskeletal: shoulder pain, back pain Neurological: Other (Tremor in righthand); No: Weakness, Confusion Focused Exam Capillary Refill: Less Than 3 Seconds Peripheral Pulses: 2+ Radial Pulses (R), 2+ Radial Pulses (L) Objective Exam Vital Signs Vital Signs Date Time Temp Pulse Resp B/P (MAP) Pulse Ox O2 Delivery O2 Flow Rate FiO2 01/17/21 11:45 36.3 101 20 97/58 (71) 95 High Flow N/C 4.00 01/16/21 16:19 36 Capillary Refill : Less Than 3 Seconds General Appearance: No Apparent Distress, Chronically ill, Obese HEENT: PERRL/EOMI; No Scleral Icterus (L), No Scleral Icterus (R) Neck: Normal Inspection, Non Tender; No Lymphadenopathy (L), No Lymphadenopathy (R) Respiratory: Chest Non Tender, Lungs Clear, Normal Breath Sounds, No Accessory Muscle Use, No Respiratory Distress Cardiovascular: Regular Rate, Rhythm, No Murmur, Normal Peripheral Pulses Gastrointestinal: Normal Bowel Sounds, Non Tender, Soft Extremity: Normal Capillary Refill, Normal Inspection, Non Tender, Pedal Edema, Swelling (B/L LE 2+ pitting edema) Neurologic/Psychiatric: Alert, Oriented x3, No Motor/Sensory Deficits, Normal Mood/Affect, collection agent II-XII Norm as Tested Skin: Warm/Dry, Rash (In intertriginous area on his stomach) Lymphatic: No Adenopathy (Head and neck) Results/Procedures Lab Laboratory Tests 01/17/21 05:18 Patient resulted labs reviewed. Imaging: Reviewed Imaging Report Assessment/Plan Assessment and Plan Assess & Plan/Chief Complaint Assessment SOB - Most likely d/t pulmonary emboli Acute on chronic respiratory failure - Switched from Vapotherm to NC. Maintaining saturations H/o CHF Morbid obesity DVT Weakness and deconditioning Obstructive sleep apnea Plan Continue PT and OT as tolerated Plan is to discharge to [facility] Encourage ambulation Continue breathing treatments as needed Continue ABIMBOLA Carcamo DO 01/18/21 0538: Subjective Subjective/Events-last exam Patient doing much better Ambulating around really well May not need group home but will evaluate PT and OT notes Review of Systems General: Fatigue, Malaise Objective Exam General Appearance: No Apparent Distress, WD/WN, Chronically ill, Obese Respiratory: Lungs Clear, Normal Breath Sounds Cardiovascular: Regular Rate, Rhythm Neurologic/Psychiatric: Alert, Oriented x3, No Motor/Sensory Deficits, Normal Mood/Affect Assessment/Plan Assessment and Plan Assess & Plan/Chief Complaint Much improved Continue oral anticoagulation Supervisory-Addendum Brief Verification & Attestation Participated in pt care: history, MDM, physical Personally performed: exam, history, MDM, supervision of care Care discussed with: Medical Student Procedures: n/a Results interpretation: Verified all documentation Verification and Attestation of Medical Student E/M Service A medical student performed and documented this service in my presence. I reviewed and verified all information documented by the medical student and made modifications to such information, when appropriate. I personally performed the physical exam and medical decision making. Abimbola Taveras, Jan 18, 2021,05:37 VINICIUS CAMPOS Jan 17, 2021 12:54 ABIMBOLA TAVERAS DO Jan 18, 2021 05:38
--- NOTE | 2021-01-17 13:45 | Occupational Ther Daily Note ---
OT Current Status-Daily Note Subjective Pt alert, sitting in recliner. Pt agrees to therapy. Pt c/o pain at coccyx, does not rate. Mental Status/Objective Patient Orientation: Person, Place, Time, Situation Attachments: IV, Oxygen ADL-Treatment Pt states that he needs to use the toilet and that it will alleviate the pain at his tailbone. SBA for pt to ambulate to bathroom then transfer to toilet. Pt able to manipulate clothing by self. Pt stated that he wanted to sit for awhile. Nrsg aware of pt's position and pt educated cellulose insulation helper light to alert nrsg when ready. After session, pt sitting in bathroom with call light in reach. All needs met in. Therapy Code Descriptions/Definitions Functional Ector Measure: 0=Not Assessed/NA 4=Minimal Assistance 1=Total Assistance 5=Supervision or Setup 2=Maximal Assistance 6=Modified Ector 3=Moderate Assistance 7=Complete IndependenceSCALE: Activities may be completed with or without assistive devices. 6-Qqkeiqecys-ecglxcj completes the activity by him/herself with no assistance from a helper. 5-Set-up or Clean-up Assistance-helper sets up or cleans up; patient completes activity. Regent assists only prior to or following the activity. 4-Supervision or Touching Assistance-helper provides verbal cues and/or touching/steadying and/or contact guard assistance as patient completes activity. Assistance may be provided throughout the activity or intermittently. 3-Partial/Moderate Assistance-helper does LESS THAN HALF the effort. Regent lifts, holds or supports trunk or limbs, but provides less than half the effort. 2-Substantial/Maximal Assistance-helper does MORE THAN HALF the effort. Regent lifts or holds trunk or limbs and provides more than half the effort. 6-Yevnukrwr-ahhkwt does ALL the effort. Patient does none of the effort to complete the activity. Or, the assistance of 2 or more helpers is required for the patient to complete the activity. If activity was not attempted, code reason: 7-Patient Refused. 9-Not Applicable-not attempted and the patient did not perform the activity before the current illness, exacerbation or injury. 10-Not Attempted due to Environmental Limitations-(lack of equipment, weather restraints, etc.). 88-Not Attempted due to Medical Conditions or Safety Concerns. Toileting Hygiene (QC): 4 Toilet Transfer (QC): 4 OT Insurance Administrative Assistant Goals Insurance Administrative Assistant Goals Time Frame: Jan 25, 2021 Eating (QC): 6 Oral Hygiene (QC): 6 Toileting Hygiene (QC): 4 Shower/Bathe Self (QC): 3 Upper Body Dressing (QC): 5 Lower Body Dressing (QC): 4 On/Off Footwear (QC): 4 Additional Goals: 1-Demonstrate ADL Tasks, 2-Verbalize Understanding, 3- ImproveStrength/Dash 1=Demonstrate adherence to instructed precautions during ADL tasks. 2=Patient will verbalize/demonstrate understanding of assistive devices/modifications for ADL. 3=Patient will improve strength/tolerance for activity to enable patient to perform ADL's. OT Education/Plan Problem List/Assessment Assessment: Decreased Activ Tolerance, Impaired Self-Care Skills Discharge Recommendations Plan/Recommendations: Continue POC Treatment Plan/Plan of Care Patient would benefit from OT for education, treatment and training to promote independence in ADL's, mobility, safety and/or upper extremity function for ADL's. Plan of Care: ADL Retraining, Functional Mobility, UE Funct Exercise/Act Treatment Duration: Jan 25, 2021 Frequency: 5 times per week Estimated Hrs Per Day: .25 hour per day Rehab Potential: Fair Time/GCodes Start Time: 12:30 Stop Time: 12:44 Total Time Billed (hr/min): 14 Billed Treatment Time 1 visit-ADL 1 (14 min) PAGE RUELAS Jan 17, 2021 13:45
[2021-01-17 15:53] VITALS: BP 140/74
[2021-01-17 19:53] VITALS: BP 117/73
[2021-01-17] MEDS: DICLOFENAC 1% GEL 100 GM (VOLTAREN) TUBE TOP PRN (20:47)
[2021-01-17] MEDS: polyethylene glycoL POWDER 17 GM (MIRALAX) PACK PO SCH (20:48)
[2021-01-17] MEDS: clonazePAM 0.5 MG (KlonoPIN) TAB PO SCH (20:48)
[2021-01-17] MEDS: traZODone 150 MG (DESYREL) TABLET PO SCH (20:48)
[2021-01-17] MEDS: PANTOPRAZOLE 40 MG (PROTONIX) TAB PO SCH (20:48)
[2021-01-18 00:02] VITALS: BP 119/63
[2021-01-18 03:44] VITALS: BP 134/85
[2021-01-18] MEDS: CYANOCOBALAMIN 1,000 MCG (VITAMIN B-12) TABLET PO SCH (06:41)
[2021-01-18] MEDS: CATHETER FLUSH 10 ML SYR IV SCH ×2 (06:41→13:46)
[2021-01-18] MEDS: VENlafaxine XR 75 MG (EFFEXOR XR) CAP PO SCH (06:41)
[2021-01-18 08:00] VITALS: BP 133/62
--- NOTE | 2021-01-18 08:47 | Progress Note - Cardiology ---
Cardiology SOAP Progress Note Subjective: Lying in bed Feels SOB is unchanged No c/o CP C/O "aching all over" Objective: I&O/Vital Signs Weight (Pounds): 358 Weight (Ounces): 6.0 Weight (Calculated Kilograms): 162.340541 Constitutional: AAO x 3, well-nourished, other (lethargic) Respiratory: chest expansion is symmetric, chest is bilaterally symmetric, other (good air entry) Cardiovascular: regular rate-rhythm, S1 and S2 Gastrointestional: soft, round Extremities: other (mild bilat LE swelling) Neurologic/Psychiatric: grossly intact Skin: No rash on exposed areas, No ulcerations on exposed areas Results/Procedures: Labs Microbiology 01/05/21 MRSA Screen - Final, Complete MRSA not isolated 01/03/21 Blood Culture - Final, Complete No growth A/P: Assessment: PE (large wedge-shaped defects bilaterally, consistent with high probability for pulmonary embolism per VQ lung scan of 01-04-21) - Echo on 01/04/21: LVEF 55-65%, PASP 30-35 mmHg Acute on chronic renal insufficiency: resolved Mildly elevated troponin at presentation - probable type 2 [place] secondary to transient hypoxia DVT - Partially occlusive deep vein thrombus within the mid superficial femoral artery extending into the left popliteal artery and calf vessels of the left lower extremity. No sonographic evidence of deep venous thrombosis in the right lower extremity. LAILA - CPAP tx HTN HLD, by history Morbid obesity - BMI approx 54 Chronic joint pain - h/o shoulder and bilat knee pain H/o anxiety/depression Plan: Continue anticoag and current regimen Diuretics as needed Replace electrolytes as indicated We recommend physical therapy post discharge Awaiting placement at [facility] [place] for discharge from cardiac stand point JYOTSNA COOPER [facility] Jan 18, 2021 08:47
[2021-01-18] MEDS: ALLOPURINOL 100 MG (ZYLOPRIM) TAB PO SCH (09:19)
[2021-01-18] MEDS: VITAMIN D3 25 MCG (1,000 UNITS) TABLET PO SCH (09:19)
[2021-01-18] MEDS: GABAPENTIN 300 MG (NEURONTIN) CAP PO SCH ×2 (09:19→13:46)
[2021-01-18] MEDS: APIXABAN 5 MG (ELIQUIS) TABLET PO SCH (09:19)
[2021-01-18] MEDS: MIRABEGRON 25 MG TAB (MYRBETRIQ) PO SCH (09:19)
[2021-01-18] MEDS: meTOprolol TARTRATE 50 MG (LOPRESSOR) TAB PO SCH (09:19)
[2021-01-18] MEDS: MICONAZOLE 2% POWDER (DESENEX AF) 90 GM TOP SCH (09:20)
[2021-01-18] MEDS: RT-ALBUTEROL/IPRATROPIUM 3 ML (DUONEB) VIAL INH SCH (09:47)
--- NOTE | 2021-01-18 10:31 | Progress Note - Cardiology ---
Cardiology SOAP Progress Note Subjective: Shortness of breath better compared to time of admission Gen malaise and weakness present No cp or palp or syncope No n/v/d Leg swelling is at usual baseline Objective: I&O/Vital Signs 01/18/21 01/18/21 01/18/21 01/18/21 00:02 03:44 08:00 09:38 Temp 36.4 36.0 36.4 Pulse 70 68 71 Resp 18 18 20 B/P (MAP) 119/63 (81) 134/85 (101) 133/62 (85) Pulse Ox 92 94 94 O2 Delivery High Flow N/C High Flow N/C High Flow N/C High Flow N/C O2 Flow Rate 4.00 4.00 4.00 4.00 01/18/21 09:47 Pulse Ox 95 O2 Delivery High Flow N/C O2 Flow Rate 4.00 01/18/21 00:00 Intake Total 1686 ml Output Total 1640 ml Balance 46 ml Weight (Pounds): 358 Weight (Ounces): 6.0 Weight (Calculated Kilograms): 162.787950 Constitutional: AAO x 3, well-nourished, other (lethargic) Respiratory: chest expansion is symmetric, chest is bilaterally symmetric, other (good air entry) Cardiovascular: regular rate-rhythm, S1 and S2 Gastrointestional: soft, round Extremities: other (mild bilat LE swelling) Neurologic/Psychiatric: grossly intact Skin: No rash on exposed areas, No ulcerations on exposed areas Results/Procedures: Labs Microbiology 01/05/21 MRSA Screen - Final, Complete MRSA not isolated 01/03/21 Blood Culture - Final, Complete No growth Laboratory Tests 01/17/21 05:18 A/P: Assessment: PE (large wedge-shaped defects bilaterally, consistent with high probability for pulmonary embolism per VQ lung scan of 01-04-21) - Echo on 01/04/21: LVEF 55-65%, PASP 30-35 mmHg Acute on chronic renal insufficiency: resolved Mildly elevated troponin at presentation - probable type 2 [place] secondary to transient hypoxia DVT - Partially occlusive deep vein thrombus within the mid superficial femoral artery extending into the left popliteal artery and calf vessels of the left lower extremity. No sonographic evidence of deep venous thrombosis in the right lower extremity. LAILA - CPAP tx HTN HLD, by history Morbid obesity - BMI approx 54 Chronic joint pain - h/o shoulder and bilat knee pain H/o anxiety/depression Plan: Continue anticoag We recommend physical therapy post discharge Awaiting placement at [facility] [place] for discharge from cardiac stand point Outpt cardiac f/u advised TARA BLANCHARD MD FACP FAC [facility] Jan 18, 2021 10:31
[2021-01-18] MEDS ORDERED: TRAZ150T72 PO (11:46)
[2021-01-18] MEDS ORDERED: MICO90PO TOP (11:46)
[2021-01-18] MEDS ORDERED: APIX5TAB PO (11:46)
--- NOTE | 2021-01-18 11:48 | D/C HH Face to Face Order ---
D/C Face to Face Orders Reconcile Patient Problems Problems Reviewed?: Yes Instructions for Patient Via [employer], Patient Instructions/FollowUp: PCP 1 week Physician to follow Patient: [facility] Discharge Diet for Home: No Restrictions Patient Problems: Pulmonary embolism Patient Data-Allergies,Ht & Wt Patient Allergies: Coded Allergies: Penicillins (Verified Allergy, Mild, 12/15/18) ampicillin (Verified Allergy, Mild, RASH, 12/15/18) sulfacetamide (Verified Allergy, Mild, "MADE ME FEEL BAD", 03/19/15) egg (Verified Allergy, Unknown, 12/15/18) FROM UNCODED ALLERGIES Height (Feet): 5 Height (Inches): 10.00 Weight (Pounds): 358 Weight (Ounces): 6.0 Home Health Need/Face to Face Date of Face to Face: Jan 18, 2021 Clinical Findings: Generalized weakness and fatigue, Instability, Muscle weakness, Shortness of breath, Unsteady gait I have seen Pt [id number]: Yes Discharged To: Home Diagnosis/Conditions: PE Patient is Homebound due to: Daniel fall risk due to instabilty, Muscle weakness, Shortness of breath/distress Homebound Status Due to the above stated illness, injury or surgical procedure (medical condition or diagnosis) and associated clinical findings, the patient is homebound because of his/her inability to leave home except with aid of a supportive device and/or person AND leaving the home requires a considerable and taxing effort or is medically contraindicated. Pt req the following assistanc: Walker Home Health Nursing Orders Home Health Services Order: Nursing Services, Celebrity Manager-Evaluate & Treat, Physical Therapy-Evaluate & Treat Home Health Infusion Therapy Line Start Date: Jan 03, 2021 Certify Stmt I certify that this patient is under my care and that I, a nurse practitioner or a physician; a operator/assistant foreman working with me, had a face to face encounter that -m eets the physician face to face encounter requirements with this patient as dated. DINH TAVERAS DO Jan 18, 2021 11:48
[2021-01-18 11:50] VITALS: BP 132/73
--- NOTE | 2021-01-18 12:30 | Occ Therapy Progress Note ---
Therapy Progress Note Pt to discharge today. Discussed home environment and if pt had any concerns for bathing or dressing. Pt did not have any concerns and described his typical day. 1 visit [id number] PAGE RUELAS Jan 18, 2021 12:30
--- NOTE | 2021-01-18 13:03 | Progress Note ---
VINICIUS CAMPOS 01/18/21 1303: Progress Note Mr. Sierra is a 70 y/o male with a PMHx of morbid obesity, LAILA, and DVT of the right leg who presented to the ED on 04 January with a CC of worsening SOB and cough. He denied any sick contacts and had recently gotten his COVID vaccinations. He reported his cough as non-productive and worse with exertion. He denied chest pain at that time. He has chronic swelling in his lower extremities but does not take his "water pill." He was not established with a parking enforcer but was seen by Dr. Lake during his stay in the hospital. Throughout his hospital stay he was placed on oxygen via NC or Vapotherm to help maintain his oxygen saturation. At the time of his admission a VQ scan revealed a high probability of bilateral pulmonary emboli. Echo showed elevated pulmonary arterial pressure without right heart strain consistent with obesity hypoventilation syndrome. He routinely would have an ABG indicative of respiratory acidosis with elevated pCO2. Through his stay he has been working with PT and OT and improving. He is able to move and walk around with the assistance of his walker. His main complaint has been back pain from spending a lot of time in bed. He came to the hospital from his home. The plan is to discharge him to his home where he lives with his ex-. His care and condition is complicated by several comorbidities. He will be maintained on anticoagulation indefinitely d/t a history of pulmonary emboli. ABIMBOLA TAVERAS DO 01/19/21 0537: Supervisory-Addendum Brief Verification & Attestation Participated in pt care: history, MDM, physical Personally performed: exam, history, MDM, supervision of care Care discussed with: Medical Student Procedures: n/a Results interpretation: Verified all documentation Verification and Attestation of Medical Student E/M Service A medical student performed and documented this service in my presence. I reviewed and verified all information documented by the medical student and made modifications to such information, when appropriate. I personally performed the physical exam and medical decision making. Abimbola Taveras Jan 19, 2021,05:37 VINICIUS CAMPOS Jan 18, 2021 13:03 ABIMBOLA TAVERAS DO Jan 19, 2021 05:37
--- NOTE | 2021-01-18 13:34 | Discharge Summary ---
Discharge Summary Hospital Course Was the Problem List Reviewed?: Yes Problems/Dx: (1) Pulmonary emboli Status: Acute (2) Acute and chronic respiratory failure with hypercapnia Status: Acute (3) Obesity hypoventilation syndrome Status: Chronic Hospital Course Date of Admission: Jan 04, 2021 at 00:06 Admission Diagnosis : Family Physician/Provider: Date of Discharge: 01/18/21 Discharge Diagnosis: Assessment: Acute on chronic respiratory failure Bilateral pulmonary emboli Super morbid obesity BMI 52 Hospital Course: Mr. Sierra is a 70 y/o male with a PMHx of morbid obesity, LAILA, and DVT of the right leg who presented to the ED on 04 January with a CC of worsening SOB and cough. He denied any sick contacts and had recently gotten his Deltagen ccinatBaxano. He reported his cough as non-productive and worse with exertion. He denied chest pain at that time. He has chronic swelling in his lower extremities but does not take his "water pill." He was not established with a hogshead weigher but was seen by Dr. Lake during his stay in the hospital. Throughout his hospital stay he was placed on oxygen via NC or Vapotherm to help maintain his oxygen saturation. At the time of his admission a VQ scan revealed a high probability of bilateral pulmonary emboli. Echo showed elevated pulmonary arterial pressure without right heart strain consistent with obesity hypoventilation syndrome. He routinely would have an ABG indicative of respiratory acidosis with elevated pCO2. Through his stay he has been working with PT and OT and improving. He is able to move and walk around with the assistance of his walker. His main complaint has been back pain from spending a lot of time in bed. He came to the hospital from his home. The plan is to discharge him to his home where he lives with his ex-. His care and condition is complicated by several comorbidities. He will be maintained on anticoagulation indefinitely d/t a history of pulmonary emboli. Labs and Pending Lab Test: Microbiology 01/05/21 MRSA Screen - Final, Complete MRSA not isolated 01/03/21 Blood Culture - Final, Complete No growth Home Meds Active Eliquis (Apixaban) 5 Mg Tablet 5 Mg PO BID Lotrimin AF (Miconazole Nitrate) 90 Gm Powder 0 Gm TOP BID Trazodone HCl 150 Mg Tablet 150 Mg PO HS Reported Vitamin D3 (Cholecalciferol (Vitamin D3)) 25 Mcg Tablet 25 Mcg PO DAILY Vitamin B-12 (Cyanocobalamin (Vitamin B-12)) 500 Mcg Tablet 500 Mcg PO DAILY Odor Free Garlic (Garlic) 100 Mg Tablet 100 Mg PO BID Myrbetriq (Mirabegron) 25 Mg Tab.er.24h 25 Mg PO HS Metoprolol Tartrate 50 Mg Tablet 50 Mg PO BID Atorvastatin Calcium 80 Mg Tablet 80 Mg PO HS Tizanidine HCl 4 Mg Tablet 4 Mg PO TID PRN Pantoprazole Sodium 40 Mg Tablet.dr 40 Mg PO HS Venlafaxine HCl ER (Venlafaxine HCl) 150 Mg Cap.er.24h 150 Mg PO DAILY Clonazepam 0.5 Mg Tablet 0.5 Mg PO HS Allopurinol 100 Mg Tablet 100 Mg PO DAILY Levetiracetam 750 Mg Tablet 750 Mg PO BID Oxycodone-Acetaminophen 10-325 (Oxycodone HCl/Acetaminophen) 1 Each Tablet 1 Ea PO Q4 -6H PRN Alendronate Sodium 70 Mg Tablet 70 Mg PO WED Neurontin (Gabapentin) 300 Mg Capsule 900 Mg PO TID TAKES 3 (300MG) CAPS Diclofenac Sodium 100 Gm Gel..gram. 1 Applic TOP TID PRN APPLIES TO LEFT KNEE Assessment/Pt Instructions [facility] 1 week Discharge Planning: <30 minutes discharge planning Discharge Physical Examination Vital Signs Vital Signs Date Time Temp Pulse Resp B/P (MAP) Pulse Ox O2 Delivery O2 Flow Rate FiO2 01/18/21 11:50 36.8 65 20 132/73 (92) 93 High Flow N/C 4.00 01/16/21 16:19 36 General Appearance: No Apparent Distress, WD/WN, Chronically ill Allergies: Coded Allergies: Penicillins (Verified Allergy, Mild, 12/15/18) ampicillin (Verified Allergy, Mild, RASH, 12/15/18) sulfacetamide (Verified Allergy, Mild, "MADE ME FEEL BAD", 03/19/15) egg (Verified Allergy, Unknown, 12/15/18) FROM UNCODED ALLERGIES Discharge Summary Date of Admission Jan 04, 2021 at 00:06 Date of Discharge Discharge Date: Jan 18, 2021 Admission Diagnosis Assessment: Acute left lower extremity DVT with high probability of pulmonary emboli on VQ scan Acute kidney injury Suspected obesity hypoventilation syndrome LAILA on CPAP History of DVT in the right leg sustained after a fall 10 years ago Plan: Lovenox therapeutic dose Echo Cardiology consult Oxygen Supportive care Discharge Diagnosis Much improved Continue oral anticoagulation (1) Pulmonary emboli Status: Acute (2) Acute and chronic respiratory failure with hypercapnia Status: Acute (3) Obesity hypoventilation syndrome Status: Chronic DINH TAVERAS DO Jan 18, 2021 13:34
== END 2021-01-18 18:04 | disposition home health service (06) | DRG 175 ==
LOC: EDUNIT# 21:44 → ER 21:47 → 4TH 01-04 00:06 → ICU 01-05 13:32 → 4TH 01-10 12:42
PROVIDERS: ADMIT Internal Medicine; ATTEND Internal Medicine
PROC: 5A09357 Assistance with Respiratory Ventilation, Less than 24 Consecutive Hours, Continuous Positive Airway Pressure (ICD-10-PCS; 2021-01-05)
PROC: 5A0935A Assistance with Respiratory Ventilation, Less than 24 Consecutive Hours, High Flow/Velocity Cannula (ICD-10-PCS; 2021-01-06)
PROC: 5A0955A Assistance with Respiratory Ventilation, Greater than 96 Consecutive Hours, High Flow/Velocity Cannula (ICD-10-PCS; principal; 2021-01-10)
DX: I26.99 Other pulmonary embolism without acute cor pulmonale (principal); I21.A1 Myocardial infarction type 2; J96.21 Acute and chronic respiratory failure with hypoxia; J96.22 Acute and chronic respiratory failure with hypercapnia; E66.2 Morbid (severe) obesity with alveolar hypoventilation; Z68.43 Body mass index [BMI] 50.0-59.9, adult; I82.4Z2 Acute embolism and thrombosis of unspecified deep veins of left distal lower extremity; I82.412 Acute embolism and thrombosis of left femoral vein; Z20.822 Contact with and (suspected) exposure to COVID-19; I82.432 Acute embolism and thrombosis of left popliteal vein; N17.9 Acute kidney failure, unspecified; I12.9 Hypertensive chronic kidney disease with stage 1 through stage 4 chronic kidney disease, or unspecified chronic kidney disease; N18.9 Chronic kidney disease, unspecified; I27.20 Pulmonary hypertension, unspecified; E78.00 Pure hypercholesterolemia, unspecified; E78.5 Hyperlipidemia, unspecified; K21.9 Gastro-esophageal reflux disease without esophagitis; N40.0 Benign prostatic hyperplasia without lower urinary tract symptoms; M17.0 Bilateral primary osteoarthritis of knee; M47.9 Spondylosis, unspecified; M10.9 Gout, unspecified; H54.3 Unqualified visual loss, both eyes; F41.9 Anxiety disorder, unspecified; F32.A Depression, unspecified; Z88.0 Allergy status to penicillin; Z88.2 Allergy status to sulfonamides; Z88.1 Allergy status to other antibiotic agents; Z91.012 Allergy to eggs; Z82.61 Family history of arthritis; Z82.49 Family history of ischemic heart disease and other diseases of the circulatory system
CPT/HCPCS: 36415; 36600; 71045; 80048; 80053; 82805; 83605; 83735; 83880; 84100; 84484; 85025; 85027; 85379; 85610; 85730; 87040; 87081; 87636; 93005; 93306; 93970; 94640; 94660; 94760; 94761; 96372

== ENCOUNTER 2021-02-05 13:31 | Emergency (ER) | payer OTHER, MEDICARE ==
[~2021-02-05] VITALS: Ht 177 cm; Wt 145.0 kg
[~2021-02-05 13:31] MED LIST changes: +ALEN70TA80 PO; +ALLO100T PO; +APIX5TAB PO; +ATOR80TA76 PO; +CHOL10004 PO; +CLON0.5T4 PO; +CYAN500T8 PO; +DICL100G13 TOP; +GABA300C PO; +GARL100T2 PO; +GARL1TAB2 PO; +LEVE750T5 PO; +METO50TA15 PO; +MICO90PO TOP; +MIRA25TA PO; +OXYC-556 PO; +PANT40TA52 PO; +TIZA-186 PO; +VENL150C98 PO
--- NOTE | 2021-02-05 13:49 | ED Cough/URI ---
General Chief Complaint: Respiratory Problems Stated Complaint: SOB Source: patient, EMS Exam Limitations: no limitations (MIESHA PARKS APRN) History of Present Illness Date Seen by Provider: Feb 05, 2021 Time Seen by Provider: 13:45 Initial Comments To ER by EMS from [place] with c/o dyspnea increasing from baseline for the "past few weeks". History of COPD. Chronically oxygen dependent at 4L per [place]. EMS found him to be a 93% on his baseline 4L. Has been COVID vaccinated and denies any fevers. Timing/Duration: constant Severity/Quality: no cough Associated Symptoms: shortness of breath (MIESHA PARKS APRN) Allergies and Home Medications Allergies Coded Allergies: Penicillins (Verified Allergy, Mild, 12/15/18) ampicillin (Verified Allergy, Mild, RASH, 12/15/18) sulfacetamide (Verified Allergy, Mild, "MADE ME FEEL BAD", 03/19/15) egg (Verified Allergy, Unknown, 12/15/18) FROM UNCODED ALLERGIES Patient Home Medication List Home Medication List Reviewed: Yes (MIESHA PARKS APRN) Alendronate Sodium (Alendronate Sodium) 70 Mg Tablet, 70 MG PO WED, (Reported) Entered as Reported by: YENNY HARRISON on 01/04/21 132 Allopurinol (Allopurinol) 100 Mg Tablet, 100 MG PO DAILY, (Reported) Entered as Reported by: YENNY HARRISON on 01/04/21 132 Apixaban (Eliquis) 5 Mg Tablet, 5 MG PO BID Prescribed by: DINH TAVERAS on 01/18/21 1146 Atorvastatin Calcium (Atorvastatin Calcium) 80 Mg Tablet, 80 MG PO HS, (Reported) Entered as Reported by: YENNY HARRISON on 01/04/21 1322 Azithromycin (Azithromycin) 250 Mg Tablet, 250 MG PO UD Prescribed by: MIESHA PARKS on 02/05/21 1532 Cholecalciferol (Vitamin D3) (Vitamin D3) 25 Mcg Tablet, 25 MCG PO DAILY, (Reported) Entered as Reported by: YENNY HARRISON on 01/04/21 1322 Clonazepam (Clonazepam) 0.5 Mg Tablet, 0.5 MG PO HS, (Reported) Entered as Reported by: YENNY HARRISON on 01/04/21 1322 Cyanocobalamin (Vitamin B-12) (Vitamin B-12) 500 Mcg Tablet, 500 MCG PO DAILY, (Reported) Entered as Reported by: YENNY HARRISON on 01/04/21 132 Diclofenac Sodium (Diclofenac Sodium) 100 Gm Gel..gram., 1 APPLIC TOP TID PRN for PAIN-BREAKTHROUGH, (Reported) Entered as Reported by: YENNY HARRISON on 01/04/21 132 Gabapentin (Neurontin) 300 Mg Capsule, 900 MG PO TID, (Reported) Entered as Reported by: YENNY HARRISON on 01/04/21 132 Garlic (Odor Free Garlic) 100 Mg Tablet, 100 MG PO BID, (Reported) Entered as Reported by: YENNY HARRISON on 01/04/21 132 Levetiracetam (Levetiracetam) 750 Mg Tablet, 750 MG PO BID, (Reported) Entered as Reported by: YENNY HARRISON on 01/04/21 132 Metoprolol Tartrate (Metoprolol Tartrate) 50 Mg Tablet, 50 MG PO BID, (Reported) Entered as Reported by: YENNY HARRISON on 01/04/21 132 Miconazole Nitrate (Lotrimin AF) 90 Gm Powder, 0 GM TOP BID Prescribed by: DINH TAVERAS on 01/18/21 1146 Mirabegron (Myrbetriq) 25 Mg Tab.er.24h, 25 MG PO HS, (Reported) Entered as Reported by: YENNY HARRISON on 01/04/21 132 Oxycodone HCl/Acetaminophen (Oxycodone-Acetaminophen 10-325) 1 Each Tablet, 1 EA PO Q4 -6H PRN for PAIN-MODERATE (5-7), (Reported) Entered as Reported by: YENNY HARRISON on 01/04/21 132 Pantoprazole Sodium (Pantoprazole Sodium) 40 Mg Tablet.dr, 40 MG PO HS, (Reported) Entered as Reported by: YENNY HARRISON on 01/04/21 132 Prednisone (Prednisone) 20 Mg Tab, 40 MG PO DAILY Prescribed by: MIESHA PARKS on 02/05/21 1532 Tizanidine HCl (Tizanidine HCl) 4 Mg Tablet, 4 MG PO TID PRN for MUSCLE SPASMS, (Reported) Entered as Reported by: YNENY HARRISON on 01/04/21 1322 Trazodone HCl (Trazodone HCl) 150 Mg Tablet, 150 MG PO HS Prescribed by: DINH TAVERAS on 01/18/21 1146 Venlafaxine HCl (Venlafaxine HCl ER) 150 Mg Cap.er.24h, 150 MG PO DAILY, (R eported) Entered as Reported by: YENNY HARRISON on 01/04/21 1322 Review of Systems Review of Systems Constitutional: see HPI; No chills, No fever EENTM: see HPI Respiratory: see HPI, cough Cardiovascular: no symptoms reported Genitourinary: no symptoms reported Musculoskeletal: no symptoms reported Skin: no symptoms reported Psychiatric/Neurological: No Symptoms Reported Hematologic/Lymphatic: No Symptoms Reported Immunological/Allergic: no symptoms reported (MIESHA PARKS APRN) Past Yriswwj-Yiqukd-Mlougf Hx Immunizations Up To Date Tetanus Booster (TDap): Less than 5yrs First/Initial COVID19 Vaccinat: PFIZER- COVID19 Vaccination Don: PFIZER- (MIESHA PARKS APRN) Seasonal Allergies Seasonal Allergies: Yes (MIESHA PARKS APRN) Past Medical History Surgeries: Yes (HERNIA REPAIR, SINUS, FOOT, BARIATRIC, KNEE SCOPE, CYSTO) Abdominal, Adenoidectomy, Bladder Surgery, Gallbladder, Orthopedic, Renal, Tonsillectomy Respiratory: Yes (USES CPAP) Sleep Apnea Cardiac: Yes (2011-FROM FALL, TOOK COUMADIN FOR 6MONTHS) Deep Vein Thrombosis, High Cholesterol, Hypertension Neurological: No Reproductive Disorders: No Sexually Transmitted Disease: No HIV/AIDS: No Benign Prostatic Hyperpl, Bladder Infection, Kidney Stones Gastrointestinal: Yes (HAS HAD GASTRIC SLEEVE) Gastroesophageal Reflux, Chronic Constipation, Diverticulosis, Polyps, Hiatal Hernia, Irritable Bowel Musculoskeletal: Yes (ARTHRITIS IN KNEES AND BACK) Arthritis, Chronic Back Pain, Gout Endocrine: No Loss of Vision: Bilateral Hearing Impairment: Denies Cancer: No Psychosocial: Yes Sleep Difficulties, Anxiety, Depression Integumentary: Yes (RED PATCHES ON FACE) Blood Disorders: No Adverse Reaction/Blood Tranf: No (MIESHA PARKS APRN) Family Medical History Arthritis 19 MOTHER Cardiovascular disease 19 MOTHER Colon cancer 19 FATHER 19 MOTHER G8 SISTER Dementia 19 MOTHER Hypertension 19 MOTHER G8 BROTHER Respiratory disorder 19 FATHER (lung ca) Thyroid disease 19 MOTHER No Pertinent Family Hx (MIESHA PARKS APRN) Physical Exam Vital Signs - First Documented 02/05/21 13:35 Temp 37.7 Pulse 73 Resp 18 B/P (MAP) 122/61 (81) Pulse Ox 96 O2 Delivery Nasal Cannula O2 Flow Rate 3.00 (ADALID ARRIETA MD) Capillary Refill : (MIESHA PARKS APRN) Height: 5'10.00" Weight: 358lbs. 6.0oz. 162.179203um; 53.20 BMI Method:Stated General Appearance: WD/WN, no apparent distress Eyes: Bilateral Eye Normal Inspection, Bilateral Eye PERRL, Bilateral Eye EOMI HEENT: PERRL/EOMI, normal ENT inspection Respiratory: normal breath sounds, no respiratory distress, no accessory muscle use Cardiovascular: regular rate, rhythm, no murmur Gastrointestinal: normal bowel sounds, non tender Neurologic/Psychiatric: alert, normal mood/affect, oriented x 3 Skin: normal color, warm/dry (MIESHA PARKS APRN) Focused Exam Lactate Level 02/05/21 13:49: Lactic Acid Level 0.84 (ADALID ARRIETA MD) Lactic Acid Level Laboratory Tests Test 02/05/21 13:49 Lactic Acid Level 0.84 MMOL/L (0.50-2.00) (ADALID ARRIETA MD) Progress/Results/Core Measures Suspected Sepsis SIRS Temperature: Pulse: Respiratory Rate: Laboratory Tests 02/05/21 13:49: White Blood Count 6.6 Blood Pressure / Mean: 02/05/21 13:49: Lactic Acid Level 0.84 Laboratory Tests 02/05/21 13:49: Creatinine 1.22, Platelet Count 204, Total Bilirubin 0.5 (MIESHA PARKS APRN) Results/Orders Lab Results Laboratory Tests Test 02/05/21 13:49 Range/Units White Blood Count 6.6 4.3-11.0 10^3/uL Red Blood Count 3.85 L 4.30-5.52 10^6/uL Hemoglobin 12.8 L 13.3-17.7 g/dL Hematocrit 38 L 40-54 % Mean Corpuscular Volume 100 H 80-99 fL Mean Corpuscular Hemoglobin 33 25-34 pg Mean Corpuscular Hemoglobin Concent 33 32-36 g/dL Red Cell Distribution Width 12.0 10.0-14.5 % Platelet Count 204 130-400 10^3/uL Mean Platelet Volume 10.1 9.0-12.2 fL Immature Granulocyte % (Auto) 0 % Neutrophils (%) (Auto) 74 42-75 % Lymphocytes (%) (Auto) 17 12-44 % Monocytes (%) (Auto) 6 0-12 % Eosinophils (%) (Auto) 3 0-10 % Basophils (%) (Auto) 1 0-10 % Neutrophils # (Auto) 4.9 1.8-7.8 10^3/uL Lymphocytes # (Auto) 1.1 1.0-4.0 10^3/uL Monocytes # (Auto) 0.4 0.0-1.0 10^3/uL Eosinophils # (Auto) 0.2 0.0-0.3 10^3/uL Basophils # (Auto) 0.0 0.0-0.1 10^3/uL Immature Granulocyte # (Auto) 0.0 0.0-0.1 10^3/uL Sodium Level 139 135-145 MMOL/L Potassium Level 4.4 3.6-5.0 MMOL/L Chloride Level 98 98-107 MMOL/L Carbon Dioxide Level 32 21-32 MMOL/L Anion Gap 9 5-14 MMOL/L Blood Urea Nitrogen 14 7-18 MG/DL Creatinine 1.22 0.60-1.30 MG/DL Estimat Glomerular Filtration Rate 59 BUN/Creatinine Ratio 11 Glucose Level 98 70-105 MG/DL Lactic Acid Level 0.84 0.50-2.00 MMOL/L Calcium Level 9.5 8.5-10.1 MG/DL Corrected Calcium 10.1 8.5-10.1 MG/DL Total Bilirubin 0.5 0.1-1.0 MG/DL Aspartate Amino Transf (AST/SGOT) 18 5-34 U/L Alanine Aminotransferase (ALT/SGPT) 10 0-55 U/L Alkaline Phosphatase 86 40-136 U/L B-Type Natriuretic Peptide 99.4 <100.0 PG/ML Total Protein 6.5 6.4-8.2 GM/DL Albumin 3.2 3.2-4.5 GM/DL Procalcitonin 0.05 <0.10 NG/ML SARS-CoV-2 RNA (RT-PCR) Not Detected Not Detecte (ADALID ARRIETA MD) Vital Signs/I&O 02/05/21 02/05/21 02/05/21 02/05/21 13:35 14:00 14:27 15:15 Temp 37.7 Pulse 73 73 75 86 Resp 18 18 20 B/P (MAP) 122/61 (81) 106/80 106/80 116/88 Pulse Ox 96 95 95 96 O2 Delivery Nasal Cannula Nasal Cannula O2 Flow Rate 3.00 3.00 02/05/21 02/05/21 15:46 16:44 Pulse 71 73 Resp 20 B/P (MAP) 95/69 136/67 Pulse Ox 98 97 O2 Delivery Nasal Cannula (ADALID ARRIETA MD) Vital Signs/I&O Capillary Refill : (MIESHA PARKS APRN) Departure Communication (Admissions) 1535-patient was stuck 3 times for her blood gas unsuccessfully and refused further attempts. His oxygen remains 95% on his baseline 3 L hemodynamically stable without laboratory abnormality. We will discharged home on prednisone and an antibiotic for COPD exacerbation. (MIESHA PARKS APRN) Impression Primary Impression: Dyspnea Additional Impression: COPD exacerbation Disposition: 01 HOME, SELF-CARE Condition: Stable Departure-Patient Inst. Decision time for Depature: 15:32 (MIESHA PARKS APRN) Referrals: NO,LOCAL PHYSICIAN (PCP) Primary Care Physician QUETA PITTMAN (Family) Primary Care Physician Patient Instructions: Shortness of Breath, Adult ED Add. Discharge Instructions: 1. Steroids and antibiotic as directed. Return to ER for any concerns. All discharge instructions reviewed with patient and/or family. Voiced understanding. Scripts Azithromycin (Azithromycin) 250 Mg Tablet 250 MG PO UD, #6 TAB TAKE 2 TABLETS ON DAY ONE THEN TAKE 1 TABLET DAILY FOR FOUR MORE DAYS Prov: MIESHA PARKS APRN 02/05/21 Prednisone (Prednisone) 20 Mg Tab 40 MG PO DAILY, #6 TAB 0 Refills Prov: MIESHA PARKS APRN 02/05/21 ATTENDING PHYSICIAN NOTE: I was physically present as attending physician in the emergency department during the care of this patient, but I was not directly involved in the decision making or delivery of care for this patient. (ADALID ARRIETA MD) MIESHA PARKS APRN Feb 05, 2021 13:49 ADALID ARRIETA MD Feb 06, 2021 11:20
[2021-02-05 14:04] LABS: BASOPHILS % (AUTO) 1 % (0-10); EOSINOPHILS # (AUTO) 0.2 10^3/uL (0.0-0.3); EOSINOPHILS % (AUTO) 3 % (0-10); HEMATOCRIT 38 % (40-54); HEMOGLOBIN 12.8 g/dL (13.3-17.7); LYMPHOCYTES # (AUTO) 1.1 10^3/uL (1.0-4.0); LYMPHOCYTES % (AUTO) 17 % (12-44); MEAN CORPUSCULAR HEMOGLOBIN 33 pg (25-34); MEAN CORPUSCULAR HGB CONC 33 g/dL (32-36); MEAN CORPUSCULAR VOLUME 100 fL (80-99); MEAN PLATELET VOLUME 10.1 fL (9.0-12.2); MONOCYTES # (AUTO) 0.4 10^3/uL (0.0-1.0); MONOCYTES % (AUTO) 6 % (0-12); NEUTROPHILS # (AUTO) 4.9 10^3/uL (1.8-7.8); NEUTROPHILS % (AUTO) 74 % (42-75); PLATELET COUNT 204 10^3/uL (130-400); WHITE BLOOD COUNT 6.6 10^3/uL (4.3-11.0)
[2021-02-05 14:16] LABS: ALBUMIN 3.2 GM/DL (3.2-4.5); POTASSIUM 4.4 MMOL/L (3.6-5.0)
[2021-02-05 14:17] LABS: CALCIUM 9.5 MG/DL (8.5-10.1)
[2021-02-05 14:19] LABS: TOTAL PROTEIN 6.5 GM/DL (6.4-8.2)
[2021-02-05 14:21] LABS: BILIRUBIN,TOTAL 0.5 MG/DL (0.1-1.0)
[2021-02-05 14:22] LABS: CREATININE SERUM 1.22 MG/DL (0.60-1.30)
--- NOTE | 2021-02-05 15:25 | Diagnostic Imaging Report ---
INDICATION: Increased shortness of breath. COMPARISON: 01/14/2021. FINDINGS: Portable chest. The lungs are well aerated and clear. The heart is not enlarged. No pulmonary edema or hilar adenopathy. No pneumothorax or pleural effusion. No bony abnormalities. IMPRESSION: Negative chest. Dictated by: Dictated on workstation # [id number]
[2021-02-05] MEDS ORDERED: AZIT250T12 PO (15:32)
[2021-02-05] MEDS ORDERED: PRD20T PO (15:32)
[2021-02-05 16:44] VITALS: BP 136/67
== END 2021-02-05 16:45 | disposition home or self-care (01) ==
LOC: ER 13:33
DX: R06.00 Dyspnea, unspecified (principal); J44.1 Chronic obstructive pulmonary disease with (acute) exacerbation; G47.30 Sleep apnea, unspecified; I10 Essential (primary) hypertension; M10.9 Gout, unspecified; E78.00 Pure hypercholesterolemia, unspecified; K21.9 Gastro-esophageal reflux disease without esophagitis; F41.9 Anxiety disorder, unspecified; F32.9 Major depressive disorder, single episode, unspecified; G89.29 Other chronic pain; M54.9 Dorsalgia, unspecified; Z86.718 Personal history of other venous thrombosis and embolism; Z20.822 Contact with and (suspected) exposure to COVID-19; Z79.01 Long term (current) use of anticoagulants; Z79.899 Other long term (current) drug therapy; Z79.891 Long term (current) use of opiate analgesic
CPT/HCPCS: 36415; 71045; 80053; 83605; 83880; 84145; 85025; 87040; 87636

== ENCOUNTER → 2021-08-29 | Outpatient (RCR) | payer OTHER | END | disposition home or self-care (01) | PROVIDERS: ATTEND Nurse Practitioner | DX: R26.89 Other abnormalities of gait and mobility (principal) ==

== ENCOUNTER 2021-09-19 12:37 | Outpatient (RCR) | payer OTHER | END 2021-09-19 13:40 | disposition home or self-care (01) | PROVIDERS: ATTEND Nurse Practitioner | DX: R26.9 Unspecified abnormalities of gait and mobility (principal) ==

== ENCOUNTER 2022-10-15 11:06 | Emergency (ER) | payer OTHER ==
[~2022-10-15] VITALS: Ht 71 cm; Wt 136.0 kg
--- NOTE | 2022-10-15 11:50 | ED Lower Extremity ---
General Chief Complaint: Lower Extremity Stated Complaint: DVT RULE OUT | SWOLLEN LEG Source: patient Exam Limitations: no limitations History of Present Illness Date Seen by Provider: Oct 15, 2022 Time Seen by Provider: 11:37 Initial Comments 71-year-old male presents the ER via EMS with complaint of left lower extremity stiffness starting on 10/10/2022. He reports bilateral lower extremity edema, states it is normal for him to have edema in his lower extremities. He is supposed to take a diuretic, but does not take it consistently. 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 He currently takes a blood thinner. He also is complaining of some mild chest tightness which has been going on for the last couple days. Denies shortness of air. Denies abdominal pain, nausea, vomiting, dysuria. Allergies and Home Medications Allergies Coded Allergies: Penicillins (Verified Allergy, Mild, 12/15/18) ampicillin (Verified Allergy, Mild, RASH, 12/15/18) sulfacetamide (Verified Allergy, Mild, "MADE ME FEEL BAD", 03/19/15) egg (Verified Allergy, Unknown, 12/15/18) FROM UNCODED ALLERGIES Patient Home Medication List Home Medication List Reviewed: Yes Alendronate Sodium (Alendronate Sodium) 70 Mg Tablet, 70 MG PO WED, (Reported) Entered as Reported by: YENNY HARRISON on 01/04/21 1322 Allopurinol (Allopurinol) 100 Mg Tablet, 100 MG PO DAILY, (Reported) Entered as Reported by: YENNY HARRISON on 01/04/21 1322 Apixaban (Eliquis) 5 Mg Tablet, 5 MG PO BID Prescribed by: DINH TAVERAS on 01/18/21 1146 Atorvastatin Calcium (Atorvastatin Calcium) 80 Mg Tablet, 80 MG PO HS, (Reported) Entered as Reported by: YENNY HARRISON on 01/04/21 1322 Azithromycin (Azithromycin) 250 Mg Tablet, 250 MG PO UD Prescribed by: MIESHA PARKS on 02/05/21 1532 Cholecalciferol (Vitamin D3) (Vitamin D3) 25 Mcg Tablet, 25 MCG PO DAILY, (Reported) Entered as Reported by: YENNY HARRISON on 01/04/21 1322 Clonazepam (Clonazepam) 0.5 Mg Tablet, 0.5 MG PO HS, (Reported) Entered as Reported by: YENNY HARRISON on 01/04/21 132 Cyanocobalamin (Vitamin B-12) (Vitamin B-12) 500 Mcg Tablet, 500 MCG PO DAILY, (Reported) Entered as Reported by: YENNY HARRISON on 01/04/21 132 Diclofenac Sodium (Diclofenac Sodium) 100 Gm Gel..gram., 1 APPLIC TOP TID PRN for PAIN-BREAKTHROUGH, (Reported) Entered as Reported by: YENNY HARRISON on 01/04/21 132 Gabapentin (Neurontin) 300 Mg Capsule, 900 MG PO TID, (Reported) Entered as Reported by: YENNY HARRISON on 01/04/21 132 Garlic (Odor Free Garlic) 100 Mg Tablet, 100 MG PO BID, (Reported) Entered as Reported by: YENNY HARRISON on 01/04/21 132 Levetiracetam (Levetiracetam) 750 Mg Tablet, 750 MG PO BID, (Reported) Entered as Reported by: YENNY HARRISON on 01/04/21 132 Metoprolol Tartrate (Metoprolol Tartrate) 50 Mg Tablet, 50 MG PO BID, (Reported) Entered as Reported by: YENNY HARRISON on 01/04/21 132 Miconazole Nitrate (Lotrimin AF) 90 Gm Powder, 0 GM TOP BID Prescribed by: DINH TAVERAS on 01/18/21 1146 Mirabegron (Myrbetriq) 25 Mg Tab.er.24h, 25 MG PO HS, (Reported) Entered as Reported by: YENNY HARRISON on 01/04/21 132 Oxycodone HCl/Acetaminophen (Oxycodone-Acetaminophen 10-325) 1 Each Tablet, 1 EA PO Q4 -6H PRN for PAIN-MODERATE (5-7), (Reported) Entered as Reported by: YENNY HARRISON on 01/04/21 132 Pantoprazole Sodium (Pantoprazole Sodium) 40 Mg Tablet.dr, 40 MG PO HS, (Reported) Entered as Reported by: YENNY HARRISON on 01/04/21 132 Prednisone (Prednisone) 20 Mg Tab, 40 MG PO DAILY Prescribed by: MIESHA PARKS on 02/05/21 1532 Tizanidine HCl (Tizanidine HCl) 4 Mg Tablet, 4 MG PO TID PRN for MUSCLE SPASMS, (Reported) Entered as Reported by: YENNY HARRISON on 01/04/21 1322 Trazodone HCl (Trazodone HCl) 150 Mg Tablet, 150 MG PO HS Prescribed by: DINH TAVERAS on 01/18/21 1146 Venlafaxine HCl (Venlafaxine HCl ER) 150 Mg Cap.er.24h, 150 MG PO DAILY, (Reported) Entered as Reported by: YENNY HARRISON on 01/04/21 1322 Review of Systems Constitutional: see HPI Past Judlbfr-Oqgcoo-Wyrmgy Hx Immunizations Up To Date Tetanus Booster (TDap): Less than 5yrs First/Initial COVID19 Vaccinat: NOV 2020 Second COVID19 Vaccination Don: DEC 2020 Seasonal Allergies Seasonal Allergies: Yes Past Medical History Surgeries: Yes (HERNIA REPAIR, SINUS, FOOT, BARIATRIC, KNEE SCOPE, CYSTO) Abdominal, Adenoidectomy, Bladder Surgery, Gallbladder, Orthopedic, Renal, Tonsillectomy Respiratory: Yes (USES CPAP) Sleep Apnea Cardiac: Yes (2011-FROM [place], TOOK COUMADIN FOR 6MONTHS) Deep Vein Thrombosis, High Cholesterol, Hypertension Neurological: No Reproductive Disorders: No Sexually Transmitted Disease: No HIV/AIDS: No Benign Prostatic Hyperpl, Bladder Infection, Kidney Stones Gastrointestinal: Yes (HAS HAD GASTRIC SLEEVE) Gastroesophageal Reflux, Chronic Constipation, Diverticulosis, Polyps, Hiatal Hernia, Irritable Bowel Musculoskeletal: Yes (ARTHRITIS IN KNEES AND BACK) Arthritis, Chronic Back Pain, Gout Endocrine: No Loss of Vision: Bilateral Hearing Impairment: Denies Cancer: No Psychosocial: Yes Sleep Difficulties, Anxiety, Depression Integumentary: Yes (RED PATCHES ON FACE) Blood Disorders: No Adverse Reaction/Blood Tranf: No Family Medical History Arthritis 19 MOTHER Cardiovascular disease 19 MOTHER Colon cancer 19 FATHER 19 MOTHER G8 SISTER Dementia 19 MOTHER Hypertension 19 MOTHER G8 BROTHER Respiratory disorder 19 FATHER (lung ca) Thyroid disease 19 MOTHER No Pertinent Family Hx Physical Exam Vital Signs Vital Signs - First Documented 10/15/22 11:06 Temp 36.4 Pulse 61 Resp 17 B/P (MAP) 186/101 (129) Pulse Ox 95 O2 Delivery Room Air Capillary Refill : Height, Weight, BMI Height: 5'10.00" Weight: 358lbs. 6.0oz. 162.044271nn; 46.00 BMI Method:Stated General Appearance: WD/WN, no apparent distress Neck: supple, normal inspection Cardiovascular: regular rate, rhythm Respiratory: lungs clear, normal breath sounds, no respiratory distress, no accessory muscle use Legs: left leg pain, left leg soft tissue tenderness; bilateral leg swelling Neurologic/Psychiatric: alert, normal mood/affect Skin: normal color, warm/dry Progress/Results/Core Measures Results/Orders Lab Results Laboratory Tests Test 10/15/22 11:55 Range/Units White Blood Count 4.8 4.3-11.0 10^3/uL Red Blood Count 4.22 L 4.30-5.52 10^6/uL Hemoglobin 13.8 13.3-17.7 g/dL Hematocrit 39 L 40-54 % Mean Corpuscular Volume 93 80-99 fL Mean Corpuscular Hemoglobin 33 25-34 pg Mean Corpuscular Hemoglobin Concent 35 32-36 g/dL Red Cell Distribution Width 13.0 10.0-14.5 % Platelet Count 207 130-400 10^3/uL Mean Platelet Volume 9.9 9.0-12.2 fL Immature Granulocyte % (Auto) 0 % Neutrophils (%) (Auto) 63 42-75 % Lymphocytes (%) (Auto) 27 12-44 % Monocytes (%) (Auto) 8 0-12 % Eosinophils (%) (Auto) 2 0-10 % Basophils (%) (Auto) 1 0-10 % Neutrophils # (Auto) 3.0 1.8-7.8 10^3/uL Lymphocytes # (Auto) 1.3 1.0-4.0 10^3/uL Monocytes # (Auto) 0.4 0.0-1.0 10^3/uL Eosinophils # (Auto) 0.1 0.0-0.3 10^3/uL Basophils # (Auto) 0.0 0.0-0.1 10^3/uL Immature Granulocyte # (Auto) 0.0 0.0-0.1 10^3/uL Prothrombin Time 15.8 H 12.2-14.7 SEC INR Comment 1.2 0.8-1.4 Activated Partial Thromboplast Time 36 H 24-35 SEC Sodium Level 140 135-145 MMOL/L Potassium Level 3.4 L 3.6-5.0 MMOL/L Chloride Level 105 98-107 MMOL/L Carbon Dioxide Level 27 21-32 MMOL/L Anion Gap 8 5-14 MMOL/L Blood Urea Nitrogen 8 7-18 MG/DL Creatinine 1.03 0.60-1.30 MG/DL Estimat Glomerular Filtration Rate 77 BUN/Creatinine Ratio 8 Glucose Level 95 70-105 MG/DL Calcium Level 9.0 8.5-10.1 MG/DL Corrected Calcium 9.6 8.5-10.1 MG/DL Magnesium Level 1.7 1.6-2.4 MG/DL Total Bilirubin 0.8 0.1-1.0 MG/DL Aspartate Amino Transf (AST/SGOT) 21 5-34 U/L Alanine Aminotransferase (ALT/SGPT) 9 0-55 U/L Alkaline Phosphatase 92 40-136 U/L Troponin I < 0.028 <0.028 NG/ML B-Type Natriuretic Peptide 147.8 H <100.0 PG/ML Total Protein 6.3 L 6.4-8.2 GM/DL Albumin 3.3 3.2-4.5 GM/DL My Orders Orders - JOHNATHAN MAC APRN Cbc With Automated Diff (10/15/22 11:45) Magnesium (10/15/22 11:45) Chest 1 View, Ap/Pa Only (10/15/22 11:45) Ekg Tracing (10/15/22 11:45) Comprehensive Metabolic Panel (10/15/22 11:45) Protime With Inr (10/15/22 11:45) Partial Thromboplastin Time (10/15/22 11:45) Monitor-Rhythm Ecg Trace Only (10/15/22 11:45) Ed Iv/Invasive Line Start (10/15/22 11:45) Troponin I [place] (10/15/22 11:45) Us Venous Lower Ext Leobardo (10/15/22 11:45) Bnp [place] (10/15/22 11:45) Oxycodone/Apap 10/325mg Tablet (Oxycodon (10/15/22 13:00) Medications Given in ED Vital Signs/I&O 10/15/22 10/15/22 11:06 13:30 Temp 36.4 36.4 Pulse 61 65 Resp 17 18 B/P (MAP) 186/101 (129) 172/95 Pulse Ox 95 96 O2 Delivery Room Air Room Air Progress Progress Note : Progress Note Patient seen and evaluated, resting comfortably in bed, no acute distress. Based on exam and symptoms, cardiac work-up initiated including CBC, CMP, coags, troponin, magnesium, BNP, chest x-ray, EKG. Ultrasound of bilateral lower extremities ordered to rule out DVT. 1320 labs, x-ray, ultrasound reviewed. CBC grossly normal. CMP shows slightly decreased potassium 3.4. Troponin negative. The BNP slightly elevated 147.8. Coags show slightly elevated PT and APTT, normal INR. Chest x-ray negative for acute cardiopulmonary process. Ultrasound negative for DVT of bilateral lower extremities. Results discussed with patient. Stiffness in left lower extremity likely related to the edema. Patient instructed to take his diuretic at least for the next couple days. Discharge instructions and return precautions provided. Initial ECG Impression Date: Oct 15, 2022 Initial ECG Impression Time: 11:52 Initial ECG Rate: 59 Initial ECG Rhythm: S.Billy Initial ECG Intervals: Normal Initial ECG Impression: Normal Initial ECG Comparisson: Unchanged Diagnostic Imaging Diagonstic Imaging: Xray Plain Films/CT/US/NM/MRI: chest Comments [facility] [place] [place] NAME: ANGEL NATHAN [facility] REC#: [id number] PT STATUS: REG ER : 1950 PHYSICIAN: JOHNATHAN MAC APRN ADMIT DATE: 10/15/22/ER Draft Date of Exam:10/15/22 CHEST 1 VIEW, AP/PA ONLY INDICATION: Chest pain COMPARISON: 02/05/2021 FINDINGS: Single frontal view of the chest demonstrates normal heart size and pulmonary vascularity. The lungs are well aerated and clear. No large pleural effusion or pneumothorax is seen. The visualized osseous structures show no acute abnormalities. IMPRESSION: 1. No acute cardiopulmonary process. Dictated on workstation # [id number] Dict: 10/15/22 1252 Trans: 10/15/22 1254 [facility] [id number] Interpreted by: MARILEE MONCADA MD Electronically signed by: Diagonstic Imaging: Ultrasound Plain Films/CT/US/NM/MRI: leg Comments [facility] [place], [place] NAME: ANGEL NATHAN [facility] REC#: [id number] PT STATUS: REG ER : 1950 PHYSICIAN: JOHNATHAN MAC APRN ADMIT DATE: 10/15/22/ER Draft Date of Exam:10/15/22 US VENOUS LOWER EXT LEOBARDO PROCEDURE: US Venous Lower Ext Leobardo. TECHNIQUE: Multiple real-time grayscale images were obtained over the lower extremities in various projections, bilaterally. Additional duplex Doppler and color Doppler images were also obtained. INDICATION: Bilateral lower extremity swelling. There is no evidence of right or left lower extremity DVT. Both lower extremity deep venous systems demonstrate normal compressibility with normal response to augmentation and Valsalva. No fluid collection or mass is detected. IMPRESSION: No evidence of right or left lower extremity DVT. Dictated on workstation # [id number] Dict: 10/15/22 1301 Trans: 10/15/22 1303 CV [id number] Interpreted by: SILVANA MAY MD Electronically signed by: Departure Impression Primary Impression: Dependent edema Disposition: 01 HOME, SELF-CARE Condition: Stable Departure-Patient Inst. Decision time for Depature: 13:20 Referrals: QUETA PITTMAN (PCP) Primary Care Physician Patient Instructions: Swelling Add. Discharge Instructions: The ultrasound did not show a DVT. Take your diuretic to help with the swelling in your legs. Elevate your legs is much as possible to help reduce swelling. You may also try to wear compression stockings to help with swelling. Follow-up with your primary care provider. Return for any new, concerning, or worsening symptoms. All discharge instructions reviewed with patient and/or family. Voiced understanding. JOHNATHAN MAC APRN Oct 15, 2022 11:50
[2022-10-15 12:09] LABS: BASOPHILS % (AUTO) 1 % (0-10); EOSINOPHILS # (AUTO) 0.1 10^3/uL (0.0-0.3); EOSINOPHILS % (AUTO) 2 % (0-10); HEMATOCRIT 39 % (40-54); HEMOGLOBIN 13.8 g/dL (13.3-17.7); LYMPHOCYTES # (AUTO) 1.3 10^3/uL (1.0-4.0); LYMPHOCYTES % (AUTO) 27 % (12-44); MEAN CORPUSCULAR HEMOGLOBIN 33 pg (25-34); MEAN CORPUSCULAR HGB CONC 35 g/dL (32-36); MEAN CORPUSCULAR VOLUME 93 fL (80-99); MEAN PLATELET VOLUME 9.9 fL (9.0-12.2); MONOCYTES # (AUTO) 0.4 10^3/uL (0.0-1.0); MONOCYTES % (AUTO) 8 % (0-12); NEUTROPHILS % (AUTO) 63 % (42-75); PLATELET COUNT 207 10^3/uL (130-400); WHITE BLOOD COUNT 4.8 10^3/uL (4.3-11.0)
[2022-10-15 12:26] LABS: INR 1.2 (0.8-1.4); PROTHROMBIN TIME PATIENT 15.8 SEC (12.2-14.7)
[2022-10-15 12:28] LABS: ALBUMIN 3.3 GM/DL (3.2-4.5); CHLORIDE 105 MMOL/L (98-107); POTASSIUM 3.4 MMOL/L (3.6-5.0); SODIUM 140 MMOL/L (135-145)
[2022-10-15 12:30] LABS: GLUCOSE 95 MG/DL (70-105); TOTAL PROTEIN 6.3 GM/DL (6.4-8.2)
[2022-10-15 12:32] LABS: BILIRUBIN,TOTAL 0.8 MG/DL (0.1-1.0); CARBON DIOXIDE 27 MMOL/L (21-32)
[2022-10-15 12:34] LABS: ALKALINE PHOSPHATASE 92 U/L (40-136); CREATININE SERUM 1.03 MG/DL (0.60-1.30); GFR ESTIMATED 77
[2022-10-15 12:35] LABS: BUN/CREATININE RATIO 8
[2022-10-15 12:37] LABS: ALANINE AMINOTRANSFERASE 9 U/L (0-55); MAGNESIUM 1.7 MG/DL (1.6-2.4)
--- NOTE | 2022-10-15 12:54 | Diagnostic Imaging Report ---
INDICATION: Chest pain COMPARISON: 02/05/2021 FINDINGS: Single frontal view of the chest demonstrates normal heart size and pulmonary vascularity. The lungs are well aerated and clear. No large pleural effusion or pneumothorax is seen. The visualized osseous structures show no acute abnormalities. IMPRESSION: 1. No acute cardiopulmonary process. Dictated by: Dictated on workstation # [id number]
[2022-10-15] MEDS ORDERED: oxyCODONE/ACETAMINOPHEN 10/325MG TABLET PO ONE (13:00)
--- NOTE | 2022-10-15 13:03 | Diagnostic Imaging Report ---
PROCEDURE: US Venous Lower Ext Carl. TECHNIQUE: Multiple real-time grayscale images were obtained over the lower extremities in various projections, bilaterally. Additional duplex Doppler and color Doppler images were also obtained. INDICATION: Bilateral lower extremity swelling. There is no evidence of right or left lower extremity DVT. Both lower extremity deep venous systems demonstrate normal compressibility with normal response to augmentation and Valsalva. No fluid collection or mass is detected. IMPRESSION: No evidence of right or left lower extremity DVT. Dictated by: Dictated on workstation # [id number]
[2022-10-15 13:30] VITALS: BP 172/95
== END 2022-10-15 13:30 | disposition home or self-care (01) ==
LOC: EDUNIT# 11:06 → ER 11:07
DX: R60.0 Localized edema (principal); G47.30 Sleep apnea, unspecified; Z79.01 Long term (current) use of anticoagulants; Z86.718 Personal history of other venous thrombosis and embolism; Z86.711 Personal history of pulmonary embolism; Z99.89 Dependence on other enabling machines and devices
CPT/HCPCS: 36415; 71045; 80053; 83735; 83880; 84484; 85025; 85610; 85730; 93005; 93041; 93970